=== PATIENT | male | born 1950 | race Caucasian/White ===

== ENCOUNTER 2016-12-26 11:26 | Inpatient (IN) | payer OTHER ==
--- NOTE | 2016-12-26 11:32 | PDOC ---
History of Present Illness - General Stated Complaint: hyperglycemia Time Seen by Provider: 12/26/16 11:31 History Source: Patient Exam Limitations: No Limitations - History of Present Illness Initial Comments: 12/26/16 11:30 CHIEF COMPLAINT: Hyperglycemia PCP: Dr. Isbell HISTORY OF PRESENT ILLNESS: 66 year old male was brought in to the ED by EMS after patients called in because he was acting weird and blood sugar was undectable (very high). A/c to the EMS, gave 40U of Insulin and blood sugar was 453. EMS did a repeat blood sugar which was 414, BP 142/71mmHg, P-80bpm, RR-22; Spo2-94%. As per the patient, he fell 2 days ago while climbing up stairs as he lost his balance, fell backwards hitting his head. At that time, there was no LOC, dizziness, headache, blurring of vision. He said " I didn't go to the doctor because I am stubborn". Since yesterday he mentions of chest pressure, diffuse, non radiating, non reproducible, aggravated on movement, relieved at rest. Denies sob, cough, palpitations. Patient also reports to have developed blister that broke and was scheduled to see a wound doctor. Denies abdominal pain, nausea or vomiting. Has increased urination but denies incontinence, urgency, hesitancy. Bowel habit normal. Sleep: increased. mentions patient has been acting weird since a week, more drowy and think that is the reason for his fall. She said she called Dr. Isbell and was recommended to visit the ED but the patient didn't come to the ED. Recent Travel: None PAST MEDICAL HISTORY: DM, CKD, CVA 10/2014 without residual deficits, CAD with 5 stents s/p STEMI - mLAD PCI 2011, ischemic CM with systolic chf,COPD, extensive smoking history (3 packs per day currently, previously 5 packs per day , total of 50 yrs) PAST SURGICAL HISTORY: As mentioned above Social History: Smokinpacks/day currently Alcohol: sober since 40 years. Drugs: Denies Family History: Unknown Allergies: Pantoprazole. 12/26/16 16:55 Past History - Past Medical History Allergies/Adverse Reactions: Allergies Allergy/AdvReac Type Severity Reaction Status Date / Time pantoprazole sodium Allergy Verified 08/14/16 09:49 [From Protonix] Home Medications: Ambulatory Orders Atorvastatin Ca [Lipitor] 40 mg PO HS #0 tablet 02/19/14 Clopidogrel Bisulfate [Plavix -] 75 mg PO DAILY #20 tablet 02/19/14 Aspirin [Ecotrin] 81 mg PO DAILY 04/29/15 Temazepam [Restoril -] 60 mg PO HS 08/24/15 Docusate Sodium [Colace -] 100 mg PO BID capsule 08/26/15 Insulin Aspart [Novolog] 0 unit SQ PRN PRN 01/10/16 Metoprolol Succinate [Toprol XL -] 50 mg PO DAILY 01/10/16 Aclidinium [place] [Tudorza -] 1 inh PO BID 08/13/16 Budesonide/Formeterol Fumarate [SYMBICORT 160/4.5mcg -] 2 inh PO BID 08/13/16 Morphine *Sr* [MS Contin -] 60 mg PO TID 08/13/16 Albuterol 0.083% Nebulizer Clarisse [Ventolin 0.083% Nebulizer Soln -] 1 amp NEB QIDR amp 08/14/16 Hydralazine HCl [Apresoline -] 10 mg PO BID #180 tablet 08/14/16 Insulin (Levemir) [Levemir Vial] 50 unit SQ AM #0 08/14/16 Insulin (Levemir) [Levemir Vial] 50 units SQ HS ml 08/14/16 Morphine *Sr* [MS Contin -] 60 mg PO TID #90 tablet.sa MDD 3 08/14/16 Oxycodone HCl [Roxicodone -] 30 mg PO Q4H PRN #0 tablet MDD 6 08/14/16 Polyethylene Glycol 3350 [Miralax 119 gm Btl -] 17 gm PO BID PRN #0 bottle 08/14 Torsemide [Demadex -] 40 mg PO DAILY #180 tablet 08/14/16 Anemia: No Asthma: No Cancer: No Cardiac Disorders: Yes (5tents, CT, CAD) CVA: Yes (CVA IN 2014 W/O DEFICIT) COPD: Yes CHF: No Dementia: No Diabetes: Yes GI Disorders: Yes (colitis NOW CONSTIPATION) Disorders: Yes (ON FLOMAX; EDEMA) HTN: Yes Hypercholesterolemia: Yes Kidney Stones: Yes Liver Disease: No Suicide Attempt (Hx): No Seizures: No Thyroid Disease: No - Surgical History Abdominal Surgery: No Appendectomy: No Cardiac Surgery: Yes (stents x 5) Cholecystectomy: No Lung Surgery: No Neurologic Surgery: No Orthopedic Surgery: No - Immunization History Immunization Up to Date: No - Psycho/Social/Smoking Cessation Hx Anxiety: No Suicidal Ideation: No Smoking Status: No Smoking History: Current every day smoker Have you smoked in the past 12 months: Yes Number of Cigarettes Smoked Daily: 30 If you are a former smoker, when did you quit?: DOWN FROM 5 PACKS DAILY TO 2.5 PACKS DAILY Cigars Per Day: 0 'Breaking Loose' booklet given: 08/13/16 Hx Alcohol Use: No Drug/Substance Use Hx: No Substance Use Type: None Hx Substance Use Treatment: No Review of Systems - Review of Systems Able to Perform ROS?: Yes Comments:: 12/26/16 14:25 CONSTITUTIONAL: Absent: fever, chills, diaphoresis, generalized weakness, malaise, loss of appetite HEENT: Absent: rhinorrhea, nasal congestion, throat pain, throat swelling, difficulty swallowing, mouth swelling, ear pain, eye pain, visual Changes CARDIOVASCULAR: Present: chest pain Absent: syncope, palpitations, irregular heart rate, lightheadedness, peripheral edema RESPIRATORY: Absent: cough, shortness of breath, dyspnea with exertion, orthopnea, wheezing, stridor, hemoptysis GASTROINTESTINAL: Absent: abdominal pain, abdominal distension, nausea, vomiting, diarrhea, constipation, melena, hematochezia GENITOURINARY: Absent: dysuria, frequency, urgency, hesitancy, hematuria, flank pain, genital pain MUSCULOSKELETAL: Absent: myalgia, arthralgia, joint swelling SKIN: Absent: rash, itching, pallor HEMATOLOGIC/IMMUNOLOGIC: Absent: easy bleeding, easy bruising, lymphadenopathy, frequent infections ENDOCRINE: Present: Hyperglycemia Absent: unexplained weight gain, unexplained weight loss, heat intolerance, cold intolerance NEUROLOGIC: Absent: headache, focal weakness or paresthesias, dizziness, unsteady gait, seizure, mental status changes, bladder or bowel incontinence PSYCHIATRIC: Absent: anxiety, depression, suicidal or homicidal ideation, hallucinations. Is the patient limited Vietnamese proficient: No *Physical Exam - Physical Exam Comments: 12/26/16 14:27 PE: GENERAL: Awake, drowsy on/off and fully oriented, in no acute distress HEAD: Signs of trauma; Dried blood in the occipito-parietal area with hematoma, no active bleeding or laceration. EYES: PERRLA, EOMI, sclera anicteric, conjunctiva clear ENT: Auricles normal inspection, hearing grossly normal, nares patent, oropharynx clear without exudates. Moist mucosa NECK: Normal ROM, supple, no lymphadenopathy, JVD, or masses LUNGS: Tachypneic, Breath sounds equal, clear to auscultation bilaterally. No wheezes, and no crackles. HEART: Regular rate and rhythm, normal S1 and S2, no murmurs, rubs or gallops ABDOMEN: Soft, nontender, normoactive bowel sounds. No guarding, no rebound. No masses EXTREMITIES: Normal range of motion, no edema. No clubbing or cyanosis. No cords, erythema, or tenderness Lower extremities: Right and left foot broken blisters +, no active bleeding. NEUROLOGICAL: Drowsy, Cranial nerves II through XII grossly intact. Normal speech, Gait not observed SKIN: Warm, Dry, normal turgor, no rashes or lesions noted. ED Treatment Course - LABORATORY CBC & Chemistry Diagram: 12/26/16 12:25 12/26/16 12:25 Medical Decision Making - Medical Decision Making 12/26/16 11:30 Patient seen and examined at bed side. Vitals noted, BP:200/110 mmHg, rest are normal. Patient looks drowsy, arousable, cooperative. at bed side and says its not his baseline and hasn't been so since a week. All labs ordered including CXR, EKG, cardiac profile, UA CT head Will treat hypertensive urgency with IV Labetolol 10mg stat 12/26/16 12:30 Patient reassessed. BP now 130/71mmHg. Labs noted, leukocytosis, uremia, hyperglycemia, Acute on Chronic CKD. Most likely needs Inpatient admission for Uremic encephalopathy 12/26/16 15:29 Clinical Impression: Uremic encephalopathy with hyperglycemia with Acute on Chronic CKD Patient received 10mg of Labetolol in the ED CT head negative for acute pathology Gentle hydration Admit patient in Med-Surg Spoke with Dr. Huang, agrees to the inpatient admission plan. Illness, Investigation and plan of care explained to the patient. He verbalized understanding. Case seen and discussed with Dr. Proctor. *DC/Admit/Observation/Transfer Diagnosis at time of Disposition: Uremic encephalopathy - Discharge Dispostion Admit: Yes
[2016-12-26] MEDS ORDERED: SODIUM CHLORIDE 1,000 ML IV ONE (11:56)
--- NOTE | 2016-12-26 12:26 | EKG ---
Test Reason : Blood Pressure : / mmHG Vent. Rate : 077 BPM Atrial Rate : 077 BPM P-R Int : 224 ms QRS Dur : 114 ms QT Int : 430 ms P-R-T Axes : 029 -50 077 degrees QTc Int : 486 ms BASELINE ARTIFACT SINUS RHYTHM WITH SINUS ARRHYTHMIA WITH 1ST DEGREE A-V BLOCK WITH OCCASIONAL PREMATURE VENTRICULAR COMPLEXES LEFT AXIS DEVIATION MODERATE VOLTAGE CRITERIA FOR LVH, MAY BE NORMAL VARIANT INFERIOR INFARCT (CITED ON OR BEFORE 16-SEP-2001) ANTEROLATERAL INFARCT (CITED ON OR BEFORE 10-MAR-2013) ABNORMAL ECG WHEN COMPARED WITH ECG OF 12-AUG-2016 20:31, NO SIGNIFICANT CHANGE WAS FOUND Confirmed by HAI GALDAMEZ MD ([id number]) on 12/26/2016 12:25:51 PM Referred By: Confirmed By:HAI GALDAMEZ MD
[2016-12-26 12:27] LABS: VENOUS BLOOD GAS HCO3 29.8 meq/L (19-25); VENOUS PH 7.38 (7.32-7.42)
[2016-12-26 12:36] LABS: MEAN PLT VOLUME 9.6 fl (7.5-11.1); PLATELET COUNT 208 K/MM3 (134-434); RDW 14.2 % (11.9-15.9); WHITE BLOOD COUNT 20.2 K/mm3 (4.0-10.0)
[2016-12-26 12:41] LABS: URINE APPEARANCE CLEAR; URINE BILIRUBIN NEGATIVE (NEGATIVE); URINE BLOOD NEGATIVE (NEGATIVE); URINE COLOR LTYELLOW; URINE GLUCOSE (UA) 1+ (NEGATIVE); URINE KETONE NEGATIVE (NEGATIVE); URINE LEUK ESTERASE NEGATIVE (NEGATIVE); URINE NITRITE NEGATIVE (NEGATIVE); URINE PROTEIN NEGATIVE (NEGATIVE); URINE UROBILINOGEN NEGATIVE E.U./dl (0.2-1.0)
[2016-12-26] MEDS ORDERED: LABETALOL HCL 5 MG/1 ML (100MG/20 ML VIAL) IVPUSH ONE ×2 (12:53→13:27)
[2016-12-26 12:59] LABS: ALBUMIN 3.6 g/dl (3.4-5.0); BILIRUBIN,TOTAL 0.7 mg/dL (0.2-1.0); CALCIUM 8.5 mg/dL (8.5-10.1); CREATININE 2.6 mg/dL (0.7-1.3); TOT PROT 6.8 g/dl (6.4-8.2)
--- NOTE | 2016-12-26 12:59 | PDOC ---
Attending Attestation - Resident Resident Name: Marika,Jenny - ED Attending Attestation I have performed the following: I have examined & evaluated the patient, The case was reviewed & discussed with the resident, I agree w/resident's findings & plan, Exceptions are as noted - HPI HPI: 12/26/16 12:56 66-year-old male with multiple medical problems including CAD on aspirin and Plavix, insulin dependent diabetes, known medication noncompliance who presents brought in by for elevated glucose levels in the setting of progressive generalized weakness and malaise over the last few days, and fall with head injury 2 days ago. - Physicial Exam PE: 12/26/16 12:57 Vital signs noted. Asleep but easily arousable, answering questions appropriately. Scalp hematoma Course breath sounds Trace pedal edema with rubor surrounding chronic superficial wounds Nonfocal neurological exam - Medical Decision Making 12/26/16 12:57 Patient seen and evaluated with the resident. I agree with the overall evaluation, assessment, and management with the following summary of visit: 66-year-old male with history of CAD/CHF, insulin-dependent diabetes presents with generalized weakness, confusion, the setting of hyperglycemia and a recent fall with head injury. Full workup with labs, urinalysis, EKG, chest x-ray CT head IV fluids Very hypertensive, we'll treat with labetalol in the setting of medication noncompliance Likely admission 12/26/16 13:48 wbc 20, ? uremic encephalopathy with BUN 128. labile BPs, mental status unchanged but CT negative for injury Heart Score/ECG Review #1 ECG reviewed & interpreted by me at: 11:53 General ECG Interpretation: Sinus Rhythm (single PVC noted), Normal Rate (77), Normal Intervals (qtc 486), No acute ischemic changes
[2016-12-26 13:01] LABS: TROPONIN I 0.02 ng/ml (0.00-0.05)
[2016-12-26 13:21] LABS: ACETONE SERUM NEGATIVE (NEGATIVE)
[2016-12-26 13:23] LABS: MAGNESIUM 1.1 mg/dL (1.8-2.4)
[2016-12-26 13:26] LABS: PLATELET ESTIMATE ADEQUATE (NORMAL)
[2016-12-26 13:38] LABS: TROPONIN I 0.02 ng/ml (0.00-0.05)
[2016-12-26] MEDS: SODIUM CHLORIDE 1,000 ML IV SCH (14:26)
[2016-12-26 15:39] LABS: MAGNESIUM 1.2 mg/dL (1.8-2.4)
[2016-12-26] MEDS ORDERED: ONDANSETRON 4 MG/2 ML VIAL IVPB PRN (15:59)
[2016-12-26] MEDS ORDERED: PIPERACILLIN/TAZOB 3.375 GM 50 ML IVPB ONE ×2 (16:12→17:02)
[2016-12-26] MEDS ORDERED: POLYETHYLENE GLYCOL 3350 119 GM BTL PO PRN (16:29)
--- NOTE | 2016-12-26 16:32 | HP ---
Admitting History and Physical - Primary Care Physician PCP: Vin Isbell - Admission Chief Complaint: I fell History of Present Illness: Mr Scott is a 66 year old male who comes in after a fall two days prior. He states he was walking and he slipped and fell back. He hit his head and back. He is having pain in both areas. He is not having numbness, tingling, weakness, paralysis, visual changes, or hearing changes/tinnitus. He decided not to come in because "I'm stubborn". He cannot tell me why he came in, but says he is hurting. His is not at the bedside currently but per ER physician she noticed that last week he began to get lethargic. She attempted to convince him to come to the doctor but he refused. She again tried to get him to come after the fall but again he refused. Today she checked his glucose and it did not register, she gave him 40 of insulin and it came down to below 400. Because of this and his lethargy he came in. He denies fevers, chills, lightheadedness, passing out, chest pressure, shortness of breath, nausea, vomiting, difficulty or pain on urination, diarrhea, constipation, or swelling. I noted wounds on both his feet and he says they have been there about 2-3 weeks and he is going to see a testing specialist for them. History Source: Patient, Medical Record Limitations to Obtaining History: Clinical Condition - Past Medical History [employer]: Yes: CVA, Peripheral Neuropathy Cardiovascular: Yes: CHF, HTN, Hyperlipdemia. No: AFIB Pulmonary: Yes: COPD Gastrointestinal: Yes: Other (Colitis) Renal/: Yes: Renal Inusuff, Other (hyperkalemia) Psych: Yes: Addictions Musculoskeletal: Yes: Other (Lumbar radiculopathy) Endocrine: Yes: Diabetes Mellitus - Past Surgical History Past Surgical History: Yes: Stent - Smoking History Smoking history: Current every day smoker Have you smoked in the past 12 months: Yes Aproximately how many cigarettes per day: 30 If you are a former smoker, when did you quit?: DOWN FROM 5 PACKS DAILY TO 2.5 PACKS DAILY - Alcohol/Substance Use Hx Alcohol Use: No History of Substance Use: reports: None - Social History Usual Living Arrangement: Yes: With Spouse ADL: Independent History of Recent Travel: No Home Medications - Allergies Allergies/Adverse Reactions: Allergies Allergy/AdvReac Type Severity Reaction Status Date / Time pantoprazole sodium Allergy Verified 08/14/16 09:49 [From Protonix] - Home Medications Home Medications: Ambulatory Orders Atorvastatin Ca [Lipitor] 40 mg PO HS #0 tablet 02/19/14 Clopidogrel Bisulfate [Plavix -] 75 mg PO DAILY #20 tablet 02/19/14 Aspirin [Ecotrin] 81 mg PO DAILY 04/29/15 Temazepam [Restoril -] 60 mg PO HS 08/24/15 Docusate Sodium [Colace -] 100 mg PO BID capsule 08/26/15 Insulin Aspart [Novolog] 0 unit SQ PRN PRN 01/10/16 Metoprolol Succinate [Toprol XL -] 50 mg PO DAILY 01/10/16 Aclidinium [place] [Tudorza -] 1 inh PO BID 08/13/16 Budesonide/Formeterol Fumarate [SYMBICORT 160/4.5mcg -] 2 inh PO BID 08/13/16 Morphine *Sr* [MS Contin -] 60 mg PO TID 08/13/16 Albuterol 0.083% Nebulizer Clarisse [Ventolin 0.083% Nebulizer Soln -] 1 amp NEB QIDR amp 08/14/16 Hydralazine HCl [Apresoline -] 10 mg PO BID #180 tablet 08/14/16 Insulin (Levemir) [Levemir Vial] 50 unit SQ AM #0 08/14/16 Insulin (Levemir) [Levemir Vial] 50 units SQ HS ml 08/14/16 Morphine *Sr* [MS Contin -] 60 mg PO TID #90 tablet.sa MDD 3 08/14/16 Oxycodone HCl [Roxicodone -] 30 mg PO Q4H PRN #0 tablet MDD 6 08/14/16 Polyethylene Glycol 3350 [Miralax 119 gm Btl -] 17 gm PO BID PRN #0 bottle 08/14 Torsemide [Demadex -] 40 mg PO DAILY #180 tablet 08/14/16 Family Disease History - Family Disease History Family Disease History: Diabetes: Grandparent, Sister (COPD), [place]: Father, Respiratory: Sister, Other: Mother (CVA) Review of Systems Findings/Remarks: Full review of systems obtained, as per HPI and otherwise negative. Physical Examination Vital Signs: Vital Signs Temperature 97.8 F 12/26/16 11:40 Pulse Rate 76 12/26/16 15:34 Respiratory Rate 20 12/26/16 15:34 Blood Pressure 121/74 12/26/16 15:34 O2 Sat by Pulse Oximetry (%) 97 12/26/16 15:34 Constitutional: Yes: No Distress, Other (lethargic) Eyes: Yes: Conjunctiva Clear, EOM Intact HENT: Yes: Atraumatic, Normocephalic Cardiovascular: Yes: Regular Rate and Rhythm. No: Gallop, Murmur, Rub Respiratory: Yes: Regular, CTA Bilaterally. No: Rales, Rhonchi, Wheezes Gastrointestinal: Yes: Normal Bowel Sounds, Soft. No: Distention, Tenderness Extremities: Yes: Erythema, Other (wound) Edema: Yes Edema: LLE: Trace, RLE: Trace Labs: Laboratory Results - last 24 hr 12/26/16 12/26/16 12/26/16 11:56 12:00 12:25 WBC 20.2 H D RBC 5.24 Hgb 15.2 Hct 46.1 MCV 88.0 MCHC 33.0 RDW 14.2 Plt Count 208 MPV 9.6 Neutrophils % 86.0 H Lymphocytes % 9.0 D Monocytes % 5.0 D Eosinophils % 0.0 D Basophils % 0.0 Band Neutrophils 0.0 D Differential Comment Manual diff done Platelet Estimate Adequate VBG pH 7.38 POC VBG pCO2 51.2 POC VBG pO2 27.7 L Mixed VBG HCO3 29.8 H Sodium Potassium Chloride Carbon Dioxide Anion Gap BUN Creatinine Creat Clearance w eGFR POC Glucometer Random Glucose Calcium Magnesium Total Bilirubin AST ALT Alkaline Phosphatase Creatine Kinase Troponin I Total Protein Albumin Urine Color Ltyellow Urine Appearance Clear Urine pH 5.0 Ur Specific [employer] 1.011 Urine Protein Negative Urine Glucose (UA) 1+ H Urine Ketones Negative Urine Blood Negative Urine Nitrite Negative Urine Bilirubin Negative Urine Urobilinogen Negative Ur Leukocyte Esterase Negative Acetone, Qual 12/26/16 12/26/16 12/26/16 12:25 12:25 12:52 WBC RBC Hgb Hct MCV MCHC RDW Plt Count MPV Neutrophils % Lymphocytes % Monocytes % Eosinophils % Basophils % Band Neutrophils Differential Comment Platelet Estimate VBG pH POC VBG pCO2 POC VBG pO2 Mixed VBG HCO3 Sodium 135 L Potassium 3.0 L Chloride 92 L D Carbon Dioxide 32 Anion Gap 11 BUN 128 H* D Creatinine 2.6 H D Creat Clearance w eGFR 24.67 POC Glucometer > 400 Random Glucose 370 H* D Calcium 8.5 Magnesium 1.1 L D 1.2 L Total Bilirubin 0.7 AST 14 L ALT 18 Alkaline Phosphatase 155 H D Creatine Kinase 62 77 Troponin I 0.02 D 0.02 Total Protein 6.8 Albumin 3.6 Urine Color Urine Appearance Urine pH Ur Specific [employer] Urine Protein Urine Glucose (UA) Urine Ketones Urine Blood Urine Nitrite Urine Bilirubin Urine Urobilinogen Ur Leukocyte Esterase Acetone, Qual Negative Imaging - Results Chest X-ray: Report Reviewed, Image Reviewed Cat Scan: Report Reviewed Problem List - Problems (1) Uremic encephalopathy Assessment/Plan: -patient with lethargy and found to have severely elevated BUN -occurred in the past secondary to overdiuresis -admit to the hospital -hold diuretics -hydrate with IVF -obtain renal ultrasound -nephrology consult Code(s): G93.41 - METABOLIC ENCEPHALOPATHY N19 - UNSPECIFIED KIDNEY FAILURE (2) Renal failure (ARF), acute on chronic Assessment/Plan: -with elevated BUN/Cr -as above -nephrology consult Code(s): N17.9 - ACUTE KIDNEY FAILURE, UNSPECIFIED N18.9 - CHRONIC KIDNEY DISEASE, UNSPECIFIED (3) Cellulitis Assessment/Plan: -with wounds on BLE -erythema not severe, but with leukocytosis -considering poorly controlled diabetes, concerning -will give dose of zosyn -considering renal function will hold on vancomycin until evaluated by ID -ID consult Code(s): L03.90 - CELLULITIS, UNSPECIFIED Qualifiers: Site of cellulitis: extremity Site of cellulitis of extremity: lower extremity Laterality: left Qualified Code(s): L03.116 - Cellulitis of left lower limb (4) Diabetes mellitus Assessment/Plan: -with severely hyperglycemia -consult endocrinology -continue levemir 50 units bid which is home dose -SSI and diabetic diet -not in ketoacidosis Code(s): E11.9 - TYPE 2 DIABETES MELLITUS WITHOUT COMPLICATIONS Qualifiers: Diabetes mellitus type: type 1 Diabetes mellitus complication status: with hyperglycemia Qualified Code(s): E10.65 - Type 1 diabetes mellitus with hyperglycemia (5) Hypomagnesemia Assessment/Plan: -replaced in the ED -recheck and replace as needed Code(s): E83.42 - HYPOMAGNESEMIA (6) Hypertension Assessment/Plan: -elevated upon presentation -given IV labetalol in the ED -much improved -continue home regimen -nephrology consulted Code(s): I10 - ESSENTIAL (PRIMARY) HYPERTENSION (7) Hypokalemia Assessment/Plan: -replace Code(s): E87.6 - HYPOKALEMIA (8) CAD (coronary artery disease) Assessment/Plan: -without chest pain -cardiac enzymes negative -continue home regimen Code(s): I25.10 - ATHSCL HEART DISEASE OF [place] CORONARY ARTERY W/O ANG PCTRS Qualifiers: Coronary Disease-Associated Artery/Lesion type: unspecified vessel or lesion type [place] vs. transplanted heart: [place] heart Associated angina: with stable angina Qualified Code(s): I25.119 - Atherosclerotic heart disease of [place] coronary artery with unspecified angina pectoris (9) COPD (chronic obstructive pulmonary disease) Assessment/Plan: -stable -continue home regimen Code(s): J44.9 - CHRONIC OBSTRUCTIVE PULMONARY DISEASE, UNSPECIFIED Qualifiers : COPD type: unspecified COPD Qualified Code(s): J44.9 - Chronic obstructive pulmonary disease, unspecified (10) Chronic pain Assessment/Plan: -will continue MS Contin -will speak with Dr Isbell and obtain home regimen Code(s): G89.29 - OTHER CHRONIC PAIN (11) Congestive heart failure (CHF) Assessment/Plan: -not in exacerbation -hold diuretics currently -hydration -close monitoring for fluid overload Code(s): I50.9 - HEART FAILURE, UNSPECIFIED Qualifiers: Congestive heart failure chronicity: chronic (12) Tobacco abuse Assessment/Plan: -nicotine patch Code(s): Z72.0 - TOBACCO USE (13) Fall Assessment/Plan: -mechanical fall, not syncope -PT consult -no ICH -obtain spine x-ray to rule out fracture Code(s): W19.XXXA - UNSPECIFIED FALL, INITIAL ENCOUNTER Qualifiers: Encounter type: initial encounter Qualified Code(s): W19.XXXA - Unspecified fall, initial encounter
[2016-12-26] MEDS ORDERED: INSULIN REGULAR HUMAN 100 UNITS/ML *VIAL ONE (17:14)
[2016-12-26] MEDS: INSULIN SLIDING SCALE (NOVOLOG) 1 VIAL SQ SCH ×2 (17:15→22:19)
[2016-12-26] MEDS: ALBUTEROL SO4 0.083% IH SOL 2.5 MG/3 ML VIAL.NEB. NEB SCH (18:02)
[2016-12-26 20:56] VITALS: BMI 25.9
[2016-12-26] MEDS: DOCUSATE SODIUM 100 MG CAPSULE (FP) PO SCH (22:17)
[2016-12-26] MEDS: ATORVASTATIN CA 40 MG TABLET (FP) PO SCH (22:18)
[2016-12-26] MEDS: HEPARIN NA (PORCINE) 5,000 UNITS/ML 1ML VIAL SQ SCH (22:18)
[2016-12-26] MEDS: INSULIN DETEMIR 100 UNITS/ML MDV SQ SCH (22:18)
[2016-12-26] MEDS: ACLIDINIUM BROMIDE 400 MCG/INH AERO.POWD IH SCH (22:22)
[2016-12-26] MEDS: BUDESONIDE/FORMETEROL FUMARATE 160/4.5 mcg INHALER IH SCH (22:22)
[2016-12-26] MEDS ORDERED: INSULIN (NOVOLOG) ASPART 100 UNITS/ML 10ML VIAL ONE (22:27)
[2016-12-26] MEDS: hydrALAZINE HCL 10 MG TABLET PO SCH (22:52)
[2016-12-26] MEDS: morphine SO4 SUSTAINED ACTING 30 MG TABLET.SA PO SCH (22:56)
[2016-12-27] MEDS: ACETAMINOPHEN 325 MG TABLET (FP) PO PRN ×2 (03:06→20:50)
[2016-12-27] MEDS: SODIUM CHLORIDE 1,000 ML IV SCH (04:25)
[2016-12-27] MEDS: morphine SO4 SUSTAINED ACTING 30 MG TABLET.SA PO SCH ×3 (05:59→22:09)
[2016-12-27] MEDS: HEPARIN NA (PORCINE) 5,000 UNITS/ML 1ML VIAL SQ SCH ×3 (05:59→22:25)
[2016-12-27] MEDS: ALBUTEROL SO4 0.083% IH SOL 2.5 MG/3 ML VIAL.NEB. NEB SCH ×3 (06:30→17:18)
[2016-12-27] MEDS: INSULIN DETEMIR 100 UNITS/ML MDV SQ SCH ×2 (06:49→22:24)
[2016-12-27] MEDS: INSULIN SLIDING SCALE (NOVOLOG) 1 VIAL SQ SCH ×4 (06:50→22:23)
[2016-12-27 07:56] LABS: BASOPHIL 0.6 % (0-2.0); MCH 28.8 pg (25.7-33.7); MCHC 33.2 g/dl (32.0-35.9); MEAN CELL VOLUME 86.9 fl (80-96); MEAN PLT VOLUME 9.8 fl (7.5-11.1); NEUTROPHILS 80.6 % (42.8-82.8); PLATELET COUNT 202 K/MM3 (134-434); RDW 14.3 % (11.9-15.9); WHITE BLOOD COUNT 17.4 K/mm3 (4.0-10.0)
[2016-12-27] MEDS ORDERED: PT OWN MED DRAWER 7, Y5N ONE ×3 (09:06→22:16)
[2016-12-27] MEDS: DOCUSATE SODIUM 100 MG CAPSULE (FP) PO SCH ×2 (09:10→22:10)
[2016-12-27] MEDS: ASPIRIN COATED 81 MG TABLET.EC PO SCH (09:10)
[2016-12-27] MEDS: hydrALAZINE HCL 10 MG TABLET PO SCH ×2 (09:10→22:36)
[2016-12-27] MEDS: METOPROLOL SUCCINATE 50 MG TAB.SR.24H (FP) PO SCH (09:11)
[2016-12-27] MEDS: BUDESONIDE/FORMETEROL FUMARATE 160/4.5 mcg INHALER IH SCH ×2 (09:11→22:36)
[2016-12-27] MEDS: CLOPIDOGREL BISULFATE 75 MG TABLET (FP) PO SCH (09:11)
[2016-12-27] MEDS: ACLIDINIUM BROMIDE 400 MCG/INH AERO.POWD IH SCH ×2 (09:12→22:36)
[2016-12-27] MEDS: NICOTINE 21 MG/24 HOURS TOPICAL PATCH TD SCH (09:12)
[2016-12-27 09:16] LABS: ALBUMIN 3.3 g/dl (3.4-5.0); BILIRUBIN,TOTAL 0.6 mg/dL (0.2-1.0); CALCIUM 8.2 mg/dL (8.5-10.1); CREATININE 1.8 mg/dL (0.7-1.3); MAGNESIUM 1.3 mg/dL (1.8-2.4); PHOSPHOROUS 3.1 mg/dL (2.5-4.9); TOT PROT 5.9 g/dl (6.4-8.2)
[2016-12-27] MEDS: oxyCODONE HCL 5 MG TABLET PO PRN ×2 (09:25→17:30)
[2016-12-27] MEDS: PREGABALIN 25 MG CAPSULE PO SCH ×2 (09:26→22:10)
[2016-12-27 09:35] LABS: URINE APPEARANCE CLEAR; URINE BILIRUBIN NEGATIVE (NEGATIVE); URINE BLOOD NEGATIVE (NEGATIVE); URINE COLOR STRAW; URINE GLUCOSE (UA) NEGATIVE (NEGATIVE); URINE KETONE NEGATIVE (NEGATIVE); URINE LEUK ESTERASE NEGATIVE (NEGATIVE); URINE NITRITE NEGATIVE (NEGATIVE); URINE PROTEIN NEGATIVE (NEGATIVE); URINE UROBILINOGEN NEGATIVE E.U./dl (0.2-1.0)
--- NOTE | 2016-12-27 09:47 | CONSULT ---
Consult Consult Specialty:: Infectious Disease Referred by:: Dr. Huang Reason for Consultation:: Diabetic Foot Ulcer/Cellulitis - History of Present Illness Chief Complaint: Fall History of Present Illness: 66M with a PMH of CHF HTN HLD DM COPD renal insufficiency Smoker who presents to the ED after having a fall 3 days ago. He states he slipped and fell and hit his head a upper back. He states he slipped and fell and denies loss of consciousness. He came to the ED due to pain. He had Head CT and spinal XR which did not show any acute pathology. Upon laboratory assessment he was found to have a WBC count of 20. The patient also reports having a left foot ulcer which started off as a "water blister" 2 months ago which eventually popped and never healed. On the right great toe he also reports a water bloster which popped yesterday. He denies nausea vomiting fevers chills diarrhea constipation cough chest pain shortness of breath hematuria or dysuria. He denies lightheadedness or dizziness. he denies discharge from the ulcers as well. He has 3 dogs at home and denies being bit or scratched. He denies recent travel. He does not follow up with wound care, podiatry, or vascular surgery. - History Source History Provided By: Patient, Medical Record Limitations to Obtaining History: No Limitations - Past Medical History [employer]: Yes: CVA, Peripheral Neuropathy Cardio/Vascular: Yes: CHF, HTN, Hyperlipdemia. No: AFIB Pulmonary: Yes: COPD Gastrointestinal: Yes: Other (Colitis) Renal/: Yes: Renal Inusuff, Other (hyperkalemia) Psych: Yes: Addictions Musculoskeletal: Yes: Other (Lumbar radiculopathy) Endocrine: Yes: Diabetes Mellitus - Past Surgical History Past Surgical History: Yes: Stent - Alcohol/Substance Use Hx Alcohol Use: No History of Substance Use: reports: None - Smoking History Smoking history: Current every day smoker Have you smoked in the past 12 months: Yes Aproximately how many cigarettes per day: 30 If you are a former smoker, when did you quit?: DOWN FROM 5 PACKS DAILY TO 2.5 PACKS DAILY - Social History Usual Living Arrangement: With Spouse ADL: Independent History of Recent Travel: No Home Medications - Allergies Allergies/Adverse Reactions: Allergies Allergy/AdvReac Type Severity Reaction Status Date / Time pantoprazole sodium Allergy Verified 08/14/16 09:49 [From Protonix] - Home Medications Home Medications: Ambulatory Orders Atorvastatin Ca [Lipitor] 40 mg PO HS #0 tablet 02/19/14 Clopidogrel Bisulfate [Plavix -] 75 mg PO DAILY #20 tablet 02/19/14 Aspirin [Ecotrin] 81 mg PO DAILY 04/29/15 Temazepam [Restoril -] 60 mg PO HS 08/24/15 Docusate Sodium [Colace -] 100 mg PO BID capsule 08/26/15 Insulin Aspart [Novolog] 0 unit SQ PRN PRN 01/10/16 Metoprolol Succinate [Toprol XL -] 50 mg PO DAILY 01/10/16 Aclidinium [place] [Tudorza -] 1 inh PO BID 08/13/16 Budesonide/Formeterol Fumarate [SYMBICORT 160/4.5mcg -] 2 inh PO BID 08/13/16 Morphine *Sr* [MS Contin -] 60 mg PO TID 08/13/16 Albuterol 0.083% Nebulizer Clarisse [Ventolin 0.083% Nebulizer Soln -] 1 amp NEB QIDR amp 08/14/16 Hydralazine HCl [Apresoline -] 10 mg PO BID #180 tablet 08/14/16 Insulin (Levemir) [Levemir Vial] 50 unit SQ AM #0 08/14/16 Insulin (Levemir) [Levemir Vial] 50 units SQ HS ml 08/14/16 Morphine *Sr* [MS Contin -] 60 mg PO TID #90 tablet.sa MDD 3 08/14/16 Oxycodone HCl [Roxicodone -] 30 mg PO Q4H PRN #0 tablet MDD 6 08/14/16 Polyethylene Glycol 3350 [Miralax 119 gm Btl -] 17 gm PO BID PRN #0 bottle 08/14 Torsemide [Demadex -] 40 mg PO DAILY #180 tablet 08/14/16 Family Disease History - Family Disease History Family Disease History: Diabetes: Grandparent, Sister (COPD), CA: Father, Respiratory: Sister, Other: Mother (CVA) Review of Systems - Review of Systems Constitutional: reports: No Symptoms Eyes: reports: No Symptoms HENT: reports: No Symptoms Neck: reports: No Symptoms Cardiovascular: reports: No Symptoms Respiratory: reports: No Symptoms Gastrointestinal: reports: No Symptoms Genitourinary: reports: No Symptoms Musculoskeletal: reports: Back Pain, Other (head pain) Integumentary: reports: Blister (feet), Wound (feet) Neurological: reports: Other (decreased sensation to bilateral feet) Endocrine: reports: No Symptoms Physical Exam Vital Signs: Vital Signs Temperature 97.6 F 12/26/16 19:00 Pulse Rate 74 12/26/16 21:00 Respiratory Rate 18 12/26/16 21:00 Blood Pressure 134/80 12/26/16 21:00 O2 Sat by Pulse Oximetry (%) 98 12/26/16 21:00 Constitutional: Yes: Obese Eyes: Yes: Conjunctiva Clear HENT: Yes: Atraumatic, Normocephalic Neck: Yes: Supple, Trachea Midline Cardiovascular: Yes: Regular Rate and Rhythm, S1, S2. No: Murmur Respiratory: Yes: CTA Bilaterally Gastrointestinal: Yes: Normal Bowel Sounds, Soft, Abdomen, Obese Extremities: Yes: Other (RLE great toe ulcer dried no discharge LLE foot ulcer which is dry and crusted left second toe ulcer on the dorsal surface with some erythema surrounding the ulcer) Edema: No Peripheral Pulses WNL: No (DP pulses not palpable bilaterally faintly palpable PT pulses ) Neurological: Yes: Alert, Oriented Labs: CBC, BMP 12/27/16 06:45 Imaging - Results Chest X-ray: Report Reviewed, Image Reviewed X-ray: Report Reviewed, Image Reviewed (All spine XR) Cat Scan: Report Reviewed, Image Reviewed (Head CT) Problem List - Problems (1) Fall Code(s): W19.XXXA - UNSPECIFIED FALL, INITIAL ENCOUNTER Qualifiers: Encounter type: initial encounter Qualified Code(s): W19.XXXA - Unspecified fall, initial encounter (2) Hypokalemia Code(s): E87.6 - HYPOKALEMIA (3) Back pain Code(s): M54.9 - DORSALGIA, UNSPECIFIED (4) CAD (coronary artery disease) Code(s): I25.10 - ATHSCL HEART DISEASE OF [place] CORONARY ARTERY W/O ANG PCTRS Qualifiers: Coronary Disease-Associated Artery/Lesion type: unspecified vessel or lesion type [place] vs. transplanted heart: [place] heart Associated angina: with stable angina Qualified Code(s): I25.119 - Atherosclerotic heart disease of [place] coronary artery with unspecified angina pectoris (5) CKD (chronic kidney disease) Code(s): N18.9 - CHRONIC KIDNEY DISEASE, UNSPECIFIED (6) COPD (chronic obstructive pulmonary disease) Code(s): J44.9 - CHRONIC OBSTRUCTIVE PULMONARY DISEASE, UNSPECIFIED Qualifiers : COPD type: unspecified COPD Qualified Code(s): J44.9 - Chronic obstructive pulmonary disease, unspecified (7) Cellulitis Code(s): L03.90 - CELLULITIS, UNSPECIFIED Qualifiers: Site of cellulitis: extremity Site of cellulitis of extremity: lower extremity Laterality: left Qualified Code(s): L03.116 - Cellulitis of left lower limb (8) Chronic pain Code(s): G89.29 - OTHER CHRONIC PAIN (9) Congestive heart failure (CHF) Code(s): I50.9 - HEART FAILURE, UNSPECIFIED Qualifiers: Congestive heart failure chronicity: chronic (10) Hyperlipidemia Code(s): E78.5 - HYPERLIPIDEMIA, UNSPECIFIED (11) Hypertension Code(s): I10 - ESSENTIAL (PRIMARY) HYPERTENSION (12) Leukocytosis Code(s): D72.829 - ELEVATED WHITE BLOOD CELL COUNT, UNSPECIFIED Qualifiers: Leukocytosis type: other Qualified Code(s): D72.828 - Other elevated white blood cell count (13) Renal failure (ARF), acute on chronic Code(s): N17.9 - ACUTE KIDNEY FAILURE, UNSPECIFIED N18.9 - CHRONIC KIDNEY DISEASE, UNSPECIFIED (14) Tobacco abuse Code(s): Z72.0 - TOBACCO USE (15) Diabetic foot ulcer Code(s): E11.621 - TYPE 2 DIABETES MELLITUS WITH FOOT ULCER L97.509 - NON-PRESSURE CHRONIC ULCER OTH PRT UNSP FOOT W UNSP SEVERITY Assessment/Plan 66M with multiple medical problems s/p mechanical fall found to have leukocytosis likely secondary to bilateral diabetic foot ulcers Wound care consult bacitracin to wounds with local wound care consider podiatry consult-will need outpatient follow up with podiatry received 1 dose of zosyn yesterday will start Cefazolin today 1Gm q12h Nephrology consult kidney ultrasound hold diuretics for now as patient is euvolemic may need IVF for hydration trend CBC and BMP pain control O2 PRN DVT PPx Will follow thank you for this consult and allowing us to participate in the care of this patient
--- NOTE | 2016-12-27 09:48 | CONSULT ---
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 No: AFIB Pulmonary: Yes: COPD Gastrointestinal: Yes: Other (Colitis) Renal/: Yes: Renal Inusuff, Other (hyperkalemia) Psych: Yes: Addictions Musculoskeletal: Yes: Other (Lumbar radiculopathy) Endocrine: Yes: Diabetes Mellitus - Past Surgical History Past Surgical History: Yes: Stent - Alcohol/Substance Use Hx Alcohol Use: No History of Substance Use: reports: None - Smoking History Smoking history: Current every day smoker Have you smoked in the past 12 months: Yes Aproximately how many cigarettes per day: 30 If you are a former smoker, when did you quit?: DOWN FROM 5 PACKS DAILY TO 2.5 PACKS DAILY - Social History Usual Living Arrangement: With Spouse ADL: Independent History of Recent Travel: No Home Medications - Allergies Allergies/Adverse Reactions: Allergies Allergy/AdvReac Type Severity Reaction Status Date / Time pantoprazole sodium Allergy Verified 08/14/16 09:49 [From Protonix] - Home Medications Home Medications: Ambulatory Orders Atorvastatin Ca [Lipitor] 40 mg PO HS #0 tablet 02/19/14 Clopidogrel Bisulfate [Plavix -] 75 mg PO DAILY #20 tablet 02/19/14 Aspirin [Ecotrin] 81 mg PO DAILY 04/29/15 Temazepam [Restoril -] 60 mg PO HS 08/24/15 Docusate Sodium [Colace -] 100 mg PO BID capsule 08/26/15 Insulin Aspart [Novolog] 0 unit SQ PRN PRN 01/10/16 Metoprolol Succinate [Toprol XL -] 50 mg PO DAILY 01/10/16 Aclidinium [place] [Tudorza -] 1 inh PO BID 08/13/16 Budesonide/Formeterol Fumarate [SYMBICORT 160/4.5mcg -] 2 inh PO BID 08/13/16 Morphine *Sr* [MS Contin -] 60 mg PO TID 08/13/16 Albuterol 0.083% Nebulizer Clarisse [Ventolin 0.083% Nebulizer Soln -] 1 amp NEB QIDR amp 08/14/16 Hydralazine HCl [Apresoline -] 10 mg PO BID #180 tablet 08/14/16 Insulin (Levemir) [Levemir Vial] 50 unit SQ AM #0 08/14/16 Insulin (Levemir) [Levemir Vial] 50 units SQ HS ml 08/14/16 Morphine *Sr* [MS Contin -] 60 mg PO TID #90 tablet.sa MDD 3 08/14/16 Oxycodone HCl [Roxicodone -] 30 mg PO Q4H PRN #0 tablet MDD 6 08/14/16 Polyethylene Glycol 3350 [Miralax 119 gm Btl -] 17 gm PO BID PRN #0 bottle 08/14 Torsemide [Demadex -] 40 mg PO DAILY #180 tablet 08/14/16 Family Disease History - Family Disease History Family Disease History: Diabetes: Grandparent, Sister (COPD), CA: Father, Respiratory: Sister, Other: Mother (CVA) Physical Exam Vital Signs: Vital Signs Temperature 97.6 F 12/26/16 19:00 Pulse Rate 74 12/26/16 21:00 Respiratory Rate 18 12/26/16 21:00 Blood Pressure 134/80 12/26/16 21:00 O2 Sat by Pulse Oximetry (%) 98 12/26/16 21:00 Labs: CBC, BMP 12/27/16 06:45 Assessment/Plan Vascular Surgery 66-year-old male with multiple medical problems including CAD on aspirin and Plavix, insulin dependent diabetes, known medication noncompliance who presents brought in by for elevated glucose levels in the setting of progressive generalized weakness and malaise over the last few days, and fall with head injury 2 days ago. Has ulcers bilateral lower ext for over a month. Pt is a smoker -- smokes 3ppd, for the last 30 years. PE head - NC/AT Lung - CTA Heart - RRR abd - soft,nt,nd ext - right great toe ulcer Left medial foot ulcer. No palpable DP pulses bilaterally. fAINT PT pulses bilaterally. A/P Long time smoker of 3 PPD, with uncontrolled DM -- now with bilateral lower ext ulcers for over a month. 1. Will need imaging -- most prob angiogram, when Cr gets better. Will be on standby for intervention. 2. Nephrology on case. 3. Bacitracin to all wounds daily. Isiah Carson DO
--- NOTE | 2016-12-27 10:35 | CONSULT ---
Consult - text type - Consultation Consultation Note: Renal Consult for [facility] on CKD This is a 66 year old Gentleman with PMhx of CKD (baseline Cr unclear, IDDM, CVA , CAD s/p PCI and stenting, CHF, COPD, Current smoker who presented from [place] with fall and AMS and found to have BUN/Cr of 128/2.6. Pt with recent admission in July with [facility] secondary to volume depletion in setting of uncontrolled blood glucose and diuretics. Pt is on Toresemide at home. As per Med Rec reported AMS and high sugars at home. + Fall with head trauma. + NSAID use at home. No WENDY or ARB. No flank pain. No hematuria or dark urine. No contrast exposure. NO recent Abx. PMhx: as above Allergies: Protonix Family Hx: NC Social Hx: + smoker ROS: as per HPI, all other pertinent ros negative Home Meds: Home Medications Torsemide 40mg, Hydralazine 10mg BID, Plavix, Novolog, Levamir Vital Signs Temperature 97.8 F 12/27/16 10:09 Pulse Rate 76 12/27/16 10:09 Respiratory Rate 16 12/27/16 10:09 Blood Pressure 142/79 12/27/16 10:09 O2 Sat by Pulse Oximetry (%) 98 12/26/16 21:00 Intake & Output 12/24/16 12/25/16 12/26/16 12/27/16 23:59 23:59 23:59 23:59 Intake Total 300 1213 Output Total 1000 2100 Balance -700 -887 Weight 171 lb Gen: NAD, awake and alert HEENT: NC/AT, MMM, No JVD CVS: RRR, No M/R Lungs: CTA Abd: soft NT/ND Ext: No edema, clubbing or cyanosis. Right foot open blister. No erythema. Neuro: AAOx3, no focal defects : No overt bladder distension CBC, BMP 12/27/16 06:45 12/27/16 06:45 Current Medications Acetaminophen (Tylenol -) 650 mg PO Q4H PRN PRN Reason: FEVER OR PAIN Last Admin: 12/27/16 03:06 Dose: 650 mg Aclidinium [place] (Tudorza -) 1 puff IH BID RADHA Last Admin: 12/27/16 09:12 Dose: 1 puff Albuterol Sulfate (Ventolin 0.083% Nebulizer Soln -) 1 amp NEB QIDR [facility] Last Admin: 12/27/16 06:30 Dose: Not Given Aspirin (Ecotrin -) 81 mg PO DAILY [facility] Last Admin: 12/27/16 09:10 Dose: 81 mg Atorvastatin Calcium (Lipitor -) 40 mg PO HS [facility] Last Admin: 12/26/16 22:18 Dose: 40 mg Bacitracin (Bacitracin -) 1 applic TP DAILY [facility] Budesonide/Formoterol Fumarate (Symbicort 160/4.5mcg -) 2 puff IH BID [facility] Last Admin: 12/27/16 09:11 Dose: 2 puff Clopidogrel Bisulfate (Plavix -) 75 mg PO DAILY [facility] Last Admin: 12/27/16 09:11 Dose: 75 mg Docusate Sodium (Colace -) 100 mg PO BID [facility] Last Admin: 12/27/16 09:10 Dose: 100 mg Heparin Sodium (Porcine) (Heparin -) 5,000 unit SQ TID [facility] Last Admin: 12/27/16 05:59 Dose: 5,000 unit Hydralazine HCl (Apresoline -) 10 mg PO BID [facility] Last Admin: 12/27/16 09:10 Dose: 10 mg Cefazolin Sodium (Ancef 1 Gm Premixed Ivpb -) 50 mls @ 100 mls/hr IVPB Q12H [facility] Potassium Chloride 20 meq/ (Sodium Chloride) 1,010 mls @ 83 mls/hr IVPB ASDIR [facility] Insulin Aspart (Novolog Vial Sliding Scale -) 1 vial SQ ACHS [facility] PRN Reason: Protocol Last Admin: 12/27/16 06:50 Dose: 7 units Insulin Detemir (Levemir Vial) 50 units SQ HS [facility] Last Admin: 12/26/16 22:18 Dose: 50 units Insulin Detemir (Levemir Vial) 50 units SQ AM [facility] Last Admin: 12/27/16 06:49 Dose: 50 units Magnesium Sulfate (Magnesium Sulfate) 2 gm IVPB Q1H [facility] Stop: 12/27/16 11:31 Metoprolol Succinate (Toprol Xl -) 50 mg PO DAILY [facility] Last Admin: 12/27/16 09:11 Dose: 50 mg Morphine Sulfate (Ms Contin -) 60 mg PO TID [facility] Last Admin: 12/27/16 05:59 Dose: 60 mg Nicotine (Nicoderm Patch -) 21 mg TD DAILY [facility] Last Admin: 12/27/16 09:12 Dose: 21 mg Ondansetron HCl (Zofran Injection) 4 mg IVPB Q6H PRN PRN Reason: NAUSEA Oxycodone HCl (Roxicodone -) 30 mg PO Q4H PRN PRN Reason: PAIN Last Admin: 12/27/16 09:25 Dose: 30 mg Polyethylene Glycol (Miralax (For Daily Use) -) 17 gm PO BID PRN PRN Reason: CONSTIPATION Potassium Chloride (K-Dur -) 60 meq PO ONCE ONE Stop: 12/27/16 10:25 Pregabalin (Lyrica -) 25 mg PO BID [facility] Last Admin: 12/27/16 09:26 Dose: 25 mg A/P 66 year old Gentleman with PMhx of CKD (baseline Cr unclear, IDDM, CVA, CAD s/p PCI and stenting, CHF, COPD, Current smoker who presented from [place] with fall and AMS and found to have BUN/Cr of 128/2.6. #Acute Kidney Injury Likely related to volume depletion in setting of hyperglycemia and diuretics Renal function with improvement since admission Check FeNa, FeUrea, UPCR Renal US pending continue isotonic IVF for now with monitoring of resp status Dose all meds for Cr Cl less then 20 avoid NSAIDs, IV contrast for now #Fall X-rays w/o eveidence of fracture CT head negative #Hyperglycemia/IDDM contniue insulin as per primary Endocrine evalulation #Hypokalemia/Hypomagnesemia from diuretics and insulin effect KCL supplementation with Oral KCL Mag Sulfate IV x 4g Trend Electrolytes Q12h #Hx of CHF/CAD Pt hypovolemic at the present time holding diuretics Thank you for this referral Will continue to follow Gerber Rodriguez DO
--- NOTE | 2016-12-27 11:04 | PN ---
Teaching Attending Note Name of Resident: Henrry Rivas ATTENDING PHYSICIAN STATEMENT I saw and evaluated the patient. I reviewed the resident's note and discussed the case with the resident. I agree with the resident's findings and plan as documented. SUBJECTIVE: OBJECTIVE: ASSESSMENT AND PLAN: Leukocytosis, possible sepsis secondary to skin focus Possible early cellulitis L 2nd toe Superficial foot ulcers s/p ruptured bullae Uncontrolled DM Azotemia Pending cultures empiric cefazolin 1gm IVPB q12h
[2016-12-27] MEDS: CEFAZOLIN (PRE-DOCKED) 50 ML IVPB SCH ×2 (11:27→22:11)
[2016-12-27] MEDS: MAGNESIUM SULF 50% (8.12 MEQ/2 ML-1 GM VIAL) IVPB SCH ×2 (11:28→12:49)
[2016-12-27] MEDS: SODIUM CHLORIDE 0.9%/KCL 1,000 ML IV SCH (11:29)
[2016-12-27] MEDS ORDERED: POTASSIUM CHLORIDE TABS 20 MEQ TABLET.ER (FP) PO ONE (13:00)
[2016-12-27 13:50] LABS: URINE CREATININE 49.5 mg/dL
--- NOTE | 2016-12-27 14:09 | PN ---
Progress Note, Physician Chief Complaint: Mr Scott complains of pain, accusatory that he did not receive pain medications. Pain is in his back and head where he fell. No cp, sob, n/v. - Current Medication List Current Medications: Active Medications Acetaminophen (Tylenol -) 650 mg PO Q4H PRN PRN Reason: FEVER OR PAIN Last Admin: 12/27/16 03:06 Dose: 650 mg Aclidinium [place] (Tudorza -) 1 puff IH BID [facility] Last Admin: 12/27/16 09:12 Dose: 1 puff Albuterol Sulfate (Ventolin 0.083% Nebulizer Soln -) 1 amp NEB QIDR [facility] Last Admin: 12/27/16 11:19 Dose: Not Given Aspirin (Ecotrin -) 81 mg PO DAILY [facility] Last Admin: 12/27/16 09:10 Dose: 81 mg Atorvastatin Calcium (Lipitor -) 40 mg PO HS [facility] Last Admin: 12/26/16 22:18 Dose: 40 mg Bacitracin (Bacitracin -) 1 applic TP DAILY [facility] Budesonide/Formoterol Fumarate (Symbicort 160/4.5mcg -) 2 puff IH BID [facility] Last Admin: 12/27/16 09:11 Dose: 2 puff Clopidogrel Bisulfate (Plavix -) 75 mg PO DAILY [facility] Last Admin: 12/27/16 09:11 Dose: 75 mg Docusate Sodium (Colace -) 100 mg PO BID [facility] Last Admin: 12/27/16 09:10 Dose: 100 mg Heparin Sodium (Porcine) (Heparin -) 5,000 unit SQ TID [facility] Last Admin: 12/27/16 13:52 Dose: 5,000 unit Hydralazine HCl (Apresoline -) 10 mg PO BID [facility] Last Admin: 12/27/16 09:10 Dose: 10 mg Cefazolin Sodium (Ancef 1gm Ivpb (Pre-Docked)) 50 mls @ 100 mls/hr IVPB BID [facility] Last Admin: 12/27/16 11:27 Dose: 100 mls/hr Potassium Chloride/Sodium Chloride (Ns+20 Meq Kcl -) 1,000 mls @ 83 mls/hr IV ASDIR [facility] Last Admin: 12/27/16 11:29 Dose: 83 mls/hr Insulin Aspart (Novolog Vial Sliding Scale -) 1 vial SQ ACHS [facility] PRN Reason: Protocol Last Admin: 12/27/16 11:36 Dose: 5 units Insulin Detemir (Levemir Vial) 50 units SQ HS [facility] Last Admin: 12/26/16 22:18 Dose: 50 units Insulin Detemir (Levemir Vial) 50 units SQ AM [facility] Last Admin: 12/27/16 06:49 Dose: 50 units Metoprolol Succinate (Toprol Xl -) 50 mg PO DAILY [facility] Last Admin: 12/27/16 09:11 Dose: 50 mg Morphine Sulfate (Ms Contin -) 60 mg PO TID [facility] Last Admin: 12/27/16 05:59 Dose: 60 mg Nicotine (Nicoderm Patch -) 21 mg TD DAILY [facility] Last Admin: 12/27/16 09:12 Dose: 21 mg Ondansetron HCl (Zofran Injection) 4 mg IVPB Q6H PRN PRN Reason: NAUSEA Oxycodone HCl (Roxicodone -) 30 mg PO Q4H PRN PRN Reason: PAIN Last Admin: 12/27/16 09:25 Dose: 30 mg Polyethylene Glycol (Miralax (For Daily Use) -) 17 gm PO BID PRN PRN Reason: CONSTIPATION Pregabalin (Lyrica -) 25 mg PO BID [facility] Last Admin: 12/27/16 09:26 Dose: 25 mg - Objective Vital Signs: Vital Signs Temperature 97.8 F 12/27/16 10:09 Pulse Rate 76 12/27/16 10:09 Respiratory Rate 16 12/27/16 10:09 Blood Pressure 142/79 12/27/16 10:09 O2 Sat by Pulse Oximetry (%) 98 12/26/16 21:00 Constitutional: Yes: Well Nourished, No Distress Cardiovascular: Yes: Regular Rate and Rhythm. No: Gallop, Murmur, Rub Respiratory: Yes: Regular, CTA Bilaterally. No: Rales, Rhonchi, Wheezes Gastrointestinal: Yes: Normal Bowel Sounds, Soft. No: Distention, Tenderness Extremities: Yes: Erythema, Other (wounds) Edema: No Labs: CBC, BMP 12/27/16 06:45 12/27/16 06:45 Problem List - Problems (1) Uremic encephalopathy Code(s): G93.41 - METABOLIC ENCEPHALOPATHY N19 - UNSPECIFIED KIDNEY FAILURE (2) Renal failure (ARF), acute on chronic Code(s): N17.9 - ACUTE KIDNEY FAILURE, UNSPECIFIED N18.9 - CHRONIC KIDNEY DISEASE, UNSPECIFIED (3) Cellulitis Code(s): L03.90 - CELLULITIS, UNSPECIFIED Qualifiers: Site of cellulitis: extremity Site of cellulitis of extremity: lower extremity Laterality: left Qualified Code(s): L03.116 - Cellulitis of left lower limb (4) Diabetes mellitus Code(s): E11.9 - TYPE 2 DIABETES MELLITUS WITHOUT COMPLICATIONS Qualifiers: Diabetes mellitus type: type 1 Diabetes mellitus complication status: with hyperglycemia Qualified Code(s): E10.65 - Type 1 diabetes mellitus with hyperglycemia (5) Hypomagnesemia Code(s): E83.42 - HYPOMAGNESEMIA (6) Hypertension Code(s): I10 - ESSENTIAL (PRIMARY) HYPERTENSION (7) Hypokalemia Code(s): E87.6 - HYPOKALEMIA (8) CAD (coronary artery disease) Code(s): I25.10 - ATHSCL HEART DISEASE OF [place] CORONARY ARTERY W/O ANG PCTRS Qualifiers: Coronary Disease-Associated Artery/Lesion type: unspecified vessel or lesion type [place] vs. transplanted heart: [place] heart Associated angina: with stable angina Qualified Code(s): I25.119 - Atherosclerotic heart disease of [place] coronary artery with unspecified angina pectoris (9) COPD (chronic obstructive pulmonary disease) Code(s): J44.9 - CHRONIC OBSTRUCTIVE PULMONARY DISEASE, UNSPECIFIED Qualifiers : COPD type: unspecified COPD Qualified Code(s): J44.9 - Chronic obstructive pulmonary disease, unspecified (10) Chronic pain Code(s): G89.29 - OTHER CHRONIC PAIN (11) Congestive heart failure (CHF) Code(s): I50.9 - HEART FAILURE, UNSPECIFIED Qualifiers: Congestive heart failure chronicity: chronic (12) Tobacco abuse Code(s): Z72.0 - TOBACCO USE (13) Fall Code(s): W19.XXXA - UNSPECIFIED FALL, INITIAL ENCOUNTER Qualifiers: Encounter type: initial encounter Qualified Code(s): W19.XXXA - Unspecified fall, initial encounter Assessment/Plan (1) Uremic encephalopathy Assessment/Plan: -mental status much improved today -uremia much improved, but not at baseline -continue hydration and treatment of ARF on CKD Code(s): G93.41 - METABOLIC ENCEPHALOPATHY N19 - UNSPECIFIED KIDNEY FAILURE (2) Renal failure (ARF), acute on chronic Assessment/Plan: -improving -continue IVF -work up per nephrology Code(s): N17.9 - ACUTE KIDNEY FAILURE, UNSPECIFIED N18.9 - CHRONIC KIDNEY DISEASE, UNSPECIFIED (3) Cellulitis Assessment/Plan: -with wounds on BLE -erythema not severe, but with leukocytosis -considering poorly controlled diabetes, concerning -placed on empiric cefazolin Code(s): L03.90 - CELLULITIS, UNSPECIFIED Qualifiers: Site of cellulitis: extremity Site of cellulitis of extremity: lower extremity Laterality: left Qualified Code(s): L03.116 - Cellulitis of left lower limb (4) Diabetes mellitus Assessment/Plan: -continues to have hyperglycemia -will monitor SSI need of insulin and adjust levemir as needed -endocrinology consulted and awaiting recommendations -continue levemir 50 units bid -SSI and diabetic diet -poorly controlled Code(s): E11.9 - TYPE 2 DIABETES MELLITUS WITHOUT COMPLICATIONS Qualifiers: Diabetes mellitus type: type 1 Diabetes mellitus complication status: with hyperglycemia Qualified Code(s): E10.65 - Type 1 diabetes mellitus with hyperglycemia (5) Hypomagnesemia Assessment/Plan: -replace per nephrology Code(s): E83.42 - HYPOMAGNESEMIA (6) Hypertension Assessment/Plan: -controlled -continue toprol xl and hydralazine Code(s): I10 - ESSENTIAL (PRIMARY) HYPERTENSION (7) Hypokalemia Assessment/Plan: -replace Code(s): E87.6 - HYPOKALEMIA (8) CAD (coronary artery disease) Assessment/Plan: -without chest pain -cardiac enzymes negative -continue home regimen Code(s): I25.10 - ATHSCL HEART DISEASE OF [place] CORONARY ARTERY W/O ANG PCTRS Qualifiers: Coronary Disease-Associated Artery/Lesion type: unspecified vessel or lesion type [place] vs. transplanted heart: [place] heart Associated angina: with stable angina Qualified Code(s): I25.119 - Atherosclerotic heart disease of [place] coronary artery with unspecified angina pectoris (9) COPD (chronic obstructive pulmonary disease) Assessment/Plan: -stable -continue home regimen Code(s): J44.9 - CHRONIC OBSTRUCTIVE PULMONARY DISEASE, UNSPECIFIED Qualifiers : COPD type: unspecified COPD Qualified Code(s): J44.9 - Chronic obstructive pulmonary disease, unspecified (10) Chronic pain Assessment/Plan: -continue home regimen of [place] Contin, pregabalin, and prn oxycodone Code(s): G89.29 - OTHER CHRONIC PAIN (11) Congestive heart failure (CHF) Assessment/Plan: -not in exacerbation -hold diuretics currently -hydration -close monitoring for fluid overload Code(s): I50.9 - HEART FAILURE, UNSPECIFIED Qualifiers: Congestive heart failure chronicity: chronic (12) Tobacco abuse Assessment/Plan: -nicotine patch Code(s): Z72.0 - TOBACCO USE (13) Fall Assessment/Plan: -no fractures per x-ray -PT consulted and following Code(s): W19.XXXA - UNSPECIFIED FALL, INITIAL ENCOUNTER Qualifiers: Encounter type: initial encounter Qualified Code(s): W19.XXXA - Unspecified fall, initial encounter
[2016-12-27] MEDS: BACITRACIN 30 GM TUBE TOPICAL OINTMENT TP SCH (15:23)
[2016-12-27 21:30] LABS: CALCIUM 8.2 mg/dL (8.5-10.1); CREATININE 1.6 mg/dL (0.7-1.3); MAGNESIUM 2.4 mg/dL (1.8-2.4)
[2016-12-27] MEDS: ATORVASTATIN CA 40 MG TABLET (FP) PO SCH (22:10)
--- NOTE | 2016-12-27 23:59 | CONSULT ---
Consult Consult Specialty:: endocrine Referred by:: dr.[email or web address] [email or web address] Reason for Consultation:: iddm uncontrolled - History of Present Illness Chief Complaint: high sugars History of Present Illness: 66 y male,multiple medical problems,iddm neuropathy presents after fall and head injury,admitts noncompliance with diabetes illness,frequent high sugars, diabetic feet infections,poor mobility and ballance altered sense of awareness to surroundings. 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 No: AFIB Pulmonary: Yes: COPD Gastrointestinal: Yes: Other (Colitis) Renal/: Yes: Renal Inusuff, Other (hyperkalemia) Psych: Yes: Addictions Musculoskeletal: Yes: Other (Lumbar radiculopathy) Endocrine: Yes: Diabetes Mellitus - Past Surgical History Past Surgical History: Yes: Stent - Alcohol/Substance Use Hx Alcohol Use: No History of Substance Use: reports: None - Smoking History Smoking history: Current every day smoker Have you smoked in the past 12 months: Yes Aproximately how many cigarettes per day: 30 If you are a former smoker, when did you quit?: DOWN FROM 5 PACKS DAILY TO 2.5 PACKS DAILY - Social History Usual Living Arrangement: With Spouse ADL: Independent History of Recent Travel: No Home Medications - Allergies Allergies/Adverse Reactions: Allergies Allergy/AdvReac Type Severity Reaction Status Date / Time pantoprazole sodium Allergy Verified 08/14/16 09:49 [From Protonix] - Home Medications Home Medications: Ambulatory Orders Atorvastatin Ca [Lipitor] 40 mg PO HS #0 tablet 02/19/14 Clopidogrel Bisulfate [Plavix -] 75 mg PO DAILY #20 tablet 02/19/14 Aspirin [Ecotrin] 81 mg PO DAILY 04/29/15 Temazepam [Restoril -] 60 mg PO HS 08/24/15 Docusate Sodium [Colace -] 100 mg PO BID capsule 08/26/15 Insulin Aspart [Novolog] 0 unit SQ PRN PRN 01/10/16 Metoprolol Succinate [Toprol XL -] 50 mg PO DAILY 01/10/16 Aclidinium [place] [Tudorza -] 1 inh PO BID 08/13/16 Budesonide/Formeterol Fumarate [SYMBICORT 160/4.5mcg -] 2 inh PO BID 08/13/16 Morphine *Sr* [MS Contin -] 60 mg PO TID 08/13/16 Albuterol 0.083% Nebulizer [place] [Ventolin 0.083% Nebulizer Soln -] 1 amp NEB QIDR amp 08/14/16 Hydralazine HCl [Apresoline -] 10 mg PO BID #180 tablet 08/14/16 Insulin (Levemir) [Levemir Vial] 50 unit SQ AM #0 08/14/16 Insulin (Levemir) [Levemir Vial] 50 units SQ HS ml 08/14/16 Morphine *Sr* [MS Contin -] 60 mg PO TID #90 tablet.sa MDD 3 08/14/16 Oxycodone HCl [Roxicodone -] 30 mg PO Q4H PRN #0 tablet MDD 6 08/14/16 Polyethylene Glycol 3350 [Miralax 119 gm Btl -] 17 gm PO BID PRN #0 bottle 08/14 Torsemide [Demadex -] 40 mg PO DAILY #180 tablet 08/14/16 Family Disease History - Family Disease History Family Disease History: Diabetes: Grandparent, Sister (COPD), [place]: Father, Respiratory: Sister, Other: Mother (CVA) Review of Systems - Review of Systems Constitutional: reports: Lethargy, Weakness Eyes: reports: Blurred Vision HENT: reports: No Symptoms Neck: reports: Pain on Movement, Tenderness Cardiovascular: reports: Shortness of Breath Respiratory: reports: Exercise Intolerance, SOB on Exertion Gastrointestinal: reports: No Symptoms Genitourinary: reports: No Symptoms Breasts: reports: No Symptoms Reported Musculoskeletal: reports: Joint Swelling, Muscle Pain, Muscle Cramps, Muscle Weakness Integumentary: reports: Blister, Lesions, Wound Neurological: reports: Dizziness, Numbness, Unsteady Gait, Weakness Endocrine: reports: Unexplained Weight Loss Physical Exam Vital Signs: Vital Signs Temperature 97.7 F 12/27/16 20:00 Pulse Rate 68 12/27/16 20:00 Respiratory Rate 16 12/27/16 20:00 Blood Pressure 142/87 12/27/16 20:00 O2 Sat by Pulse Oximetry (%) 98 12/26/16 21:00 Constitutional: Yes: Anxious Eyes: Yes: EOM Intact HENT: Yes: Normocephalic Neck: Yes: Trachea Midline Cardiovascular: Yes: Regular Rate and Rhythm Respiratory: Yes: CTA Bilaterally Gastrointestinal: Yes: Normal Bowel Sounds ...Rectal Exam: Yes: Deferred Renal/: Yes: WNL Breast(s): Yes: WNL Extremities: Yes: Delayed Capillary Refill Edema: Yes Peripheral Pulses WNL: No Integumentary: Yes: Onychomycosis, Venous Stasis Changes Wound/Incision: Yes: Dressing Removed Neurological: Yes: Alert, Oriented, Numbness, Weakness Labs: CBC, BMP 12/27/16 06:45 12/27/16 20:45 Problem List - Problems (1) Diabetic foot ulcer Code(s): E11.621 - TYPE 2 DIABETES MELLITUS WITH FOOT ULCER L97.509 - NON-PRESSURE CHRONIC ULCER OTH PRT UNSP FOOT W UNSP SEVERITY (2) Type 2 diabetes mellitus with diabetic autonomic (poly)neuropathy Code(s): E11.43 - TYPE 2 DIABETES W DIABETIC AUTONOMIC (POLY)NEUROPATHY Assessment/Plan Current Active Problems Chest pain (Acute) Diabetic foot ulcer (Acute) Fall (Acute) Hypokalemia (Acute) Uremic encephalopathy (Acute) iddm uncontrolled polyneuropathy hyperglycemia Abnormal Lab Results 12/27/16 12/27/16 12/27/16 06:45 06:45 08:00 WBC 17.4 H Potassium 2.9 L* Anion Gap BUN 93 H D Creatinine 1.8 H D Random Glucose 248 H D Calcium 8.2 L Magnesium 1.3 L AST 6 L D Alkaline Phosphatase 123 H D Total Protein 5.9 L Albumin 3.3 L U Random Total Protein 21 H 12/27/16 20:45 WBC Potassium 3.4 L Anion Gap 7 L BUN 64 H D Creatinine 1.6 H Random Glucose 229 H Calcium 8.2 L Magnesium AST Alkaline Phosphatase Total Protein Albumin U Random Total Protein Laboratory Results - last 24 hr 12/27/16 12/27/16 12/27/16 05:56 06:45 06:45 WBC 17.4 H RBC 5.04 Hgb 14.5 Hct 43.8 MCV 86.9 MCHC 33.2 RDW 14.3 Plt Count 202 MPV 9.8 Neutrophils % 80.6 Lymphocytes % 12.0 D Monocytes % 5.8 Eosinophils % 1.0 D Basophils % 0.6 D Sodium 143 Potassium 2.9 L* Chloride 103 D Carbon Dioxide 28 Anion Gap 12 BUN 93 H D Creatinine 1.8 H D Creat Clearance w eGFR 37.71 POC Glucometer 272 Random Glucose 248 H D Calcium 8.2 L Phosphorus 3.1 Magnesium 1.3 L Total Bilirubin 0.6 AST 6 L D ALT 15 Alkaline Phosphatase 123 H D Total Protein 5.9 L Albumin 3.3 L Urine Color Urine Appearance Urine pH Ur Specific [place] Urine Protein Urine Glucose (UA) Urine Ketones Urine Blood Urine Nitrite Urine Bilirubin Urine Urobilinogen Ur Leukocyte Esterase U Random Total Protein Ur Random Sodium Ur Random Potassium Ur Random Chloride Ur Random Urea Nitrogn Urine Creatinine 12/27/16 12/27/16 12/27/16 08:00 08:00 08:00 WBC RBC Hgb Hct MCV MCHC RDW Plt Count MPV Neutrophils % Lymphocytes % Monocytes % Eosinophils % Basophils % Sodium Potassium Chloride Carbon Dioxide Anion Gap BUN Creatinine Creat Clearance w eGFR POC Glucometer Random Glucose Calcium Phosphorus Magnesium Total Bilirubin AST ALT Alkaline Phosphatase Total Protein Albumin Urine Color Straw Urine Appearance Clear Urine pH 6.0 Ur Specific [place] 1.010 Urine Protein Negative Urine Glucose (UA) Negative Urine Ketones Negative Urine Blood Negative Urine Nitrite Negative Urine Bilirubin Negative Urine Urobilinogen Negative Ur Leukocyte Esterase Negative U Random Total Protein 21 H Ur Random Sodium Cancelled 41 Ur Random Potassium 9.8 Ur Random Chloride 31 Ur Random Urea Nitrogn 699 Urine Creatinine 49.5 12/27/16 12/27/16 12/27/16 08:00 08:00 11:26 WBC RBC Hgb Hct MCV MCHC RDW Plt Count MPV Neutrophils % Lymphocytes % Monocytes % Eosinophils % Basophils % Sodium Potassium Chloride Carbon Dioxide Anion Gap BUN Creatinine Creat Clearance w eGFR POC Glucometer 216 Random Glucose Calcium Phosphorus Magnesium Total Bilirubin AST ALT Alkaline Phosphatase Total Protein Albumin Urine Color Urine Appearance Urine pH Ur Specific [place] Urine Protein Urine Glucose (UA) Urine Ketones Urine Blood Urine Nitrite Urine Bilirubin Urine Urobilinogen Ur Leukocyte Esterase U Random Total Protein Cancelled Ur Random Sodium Ur Random Potassium Ur Random Chloride Ur Random Urea Nitrogn Urine Creatinine Cancelled 12/27/16 12/27/16 12/27/16 16:22 20:45 21:39 WBC RBC Hgb Hct MCV MCHC RDW Plt Count MPV Neutrophils % Lymphocytes % Monocytes % Eosinophils % Basophils % Sodium 143 Potassium 3.4 L Chloride 105 Carbon Dioxide 31 Anion Gap 7 L BUN 64 H D Creatinine 1.6 H Creat Clearance w eGFR POC Glucometer 205 211 Random Glucose 229 H Calcium 8.2 L Phosphorus Magnesium 2.4 D Total Bilirubin AST ALT Alkaline Phosphatase Total Protein Albumin Urine Color Urine Appearance Urine pH Ur Specific [place] Urine Protein Urine Glucose (UA) Urine Ketones Urine Blood Urine Nitrite Urine Bilirubin Urine Urobilinogen Ur Leukocyte Esterase U Random Total Protein Ur Random Sodium Ur Random Potassium Ur Random Chloride Ur Random Urea Nitrogn Urine Creatinine Current Medications Generic Name Dose Route Start Last Admin Trade Name Freq PRN Reason Stop Dose Admin Acetaminophen 650 mg 12/26/16 15:59 12/27/16 20:50 Tylenol - PO 650 mg Q4H PRN Administration FEVER OR PAIN Aclidinium [place] 1 puff 12/26/16 22:00 12/27/16 22:36 Tudorza - IH 1 puff BID RAHDA Administration Albuterol Sulfate 1 amp 12/26/16 18:00 12/27/16 17:18 Ventolin 0.083% Nebulizer Soln - NEB Not Given QIDR RADHA Aspirin 81 mg 12/27/16 10:00 12/27/16 09:10 Ecotrin - PO 81 mg DAILY RADHA Administration Atorvastatin Calcium 40 mg 12/26/16 22:00 12/27/16 22:10 Lipitor - PO 40 mg HS RADHA Administration Bacitracin 1 applic 12/27/16 10:00 12/27/16 15:23 Bacitracin - TP 1 applic DAILY RADHA Administration Budesonide/Formoterol Fumarate 2 puff 12/26/16 22:00 12/27/16 22:36 Symbicort 160/4.5mcg - IH 2 puff BID RADHA Administration Clopidogrel Bisulfate 75 mg 12/27/16 10:00 12/27/16 09:11 Plavix - PO 75 mg DAILY RADHA Administration Docusate Sodium 100 mg 12/26/16 22:00 12/27/16 22:10 Colace - PO 100 mg BID RADHA Administration Heparin Sodium (Porcine) 5,000 unit 12/26/16 22:00 12/27/16 22:25 Heparin - SQ 5,000 unit TID RADHA Administration Hydralazine HCl 10 mg 12/26/16 22:00 12/27/16 22:36 Apresoline - PO 10 mg BID RADHA Administration Cefazolin Sodium 50 mls @ 100 mls/hr 12/27/16 11:00 12/27/16 22:11 Ancef 1gm Ivpb (Pre-Docked) IVPB 100 mls/hr BID RADHA Administration Potassium Chloride/Sodium Chloride 1,000 mls @ 83 mls/hr 12/27/16 10:26 11:29 Ns+20 Meq Kcl - IV 83 mls/hr ASDIR RADHA Administration Insulin Aspart 1 vial 12/27/16 23:50 Novolog Vial Sliding Scale - SQ ACHS [facility] Protocol Insulin Detemir 50 units 12/26/16 22:00 12/27/16 22:24 Levemir Vial SQ 50 units HS RADHA Administration Insulin Detemir 50 units 12/27/16 07:00 12/27/16 06:49 Levemir Vial SQ 50 units AM RADHA Administration Metoprolol Succinate 50 mg 12/27/16 10:00 12/27/16 09:11 Toprol Xl - PO 50 mg DAILY RAD[facility] Administration Morphine Sulfate 60 mg 12/26/16 22:00 12/27/16 22:09 Ms Contin - PO 60 mg TID RADHA Administration Nicotine 21 mg 12/26/16 16:45 12/27/16 09:12 Nicoderm Patch - TD 21 mg DAILY RAD[facility] Administration Ondansetron HCl 4 mg 12/26/16 15:59 Zofran Injection IVPB Q6H PRN NAUSEA Oxycodone HCl 30 mg 12/27/16 08:58 12/27/16 17:30 Roxicodone - PO 30 mg Q4H PRN Administration PAIN Polyethylene Glycol 17 gm 12/26/16 16:29 Miralax (For Daily Use) - PO BID PRN CONSTIPATION Pregabalin 25 mg 12/27/16 10:00 12/27/16 22:10 Lyrica - PO 25 mg BID RADHA Administration plan: bgm as ordered with coverage levemir 50units bid ckd restriction on use other agents vascular consult pad,and diabetic wounds consult appreciated will need better diet and family involvement given history of noncompliance
[2016-12-28] MEDS: ALBUTEROL SO4 0.083% IH SOL 2.5 MG/3 ML VIAL.NEB. NEB SCH ×4 (00:19→18:38)
[2016-12-28] MEDS: ACETAMINOPHEN 325 MG TABLET (FP) PO PRN ×3 (00:57→15:02)
[2016-12-28] MEDS: SODIUM CHLORIDE 0.9%/KCL 1,000 ML IV SCH (03:42)
[2016-12-28] MEDS: morphine SO4 SUSTAINED ACTING 30 MG TABLET.SA PO SCH ×3 (05:44→21:18)
[2016-12-28] MEDS: HEPARIN NA (PORCINE) 5,000 UNITS/ML 1ML VIAL SQ SCH ×3 (05:45→21:19)
[2016-12-28] MEDS: INSULIN DETEMIR 100 UNITS/ML MDV SQ SCH ×2 (06:43→21:19)
[2016-12-28] MEDS: INSULIN SLIDING SCALE (NOVOLOG) 1 VIAL SQ SCH ×4 (06:44→21:21)
[2016-12-28] MEDS ORDERED: INSULIN (NOVOLOG) ASPART 100 UNITS/ML 10ML VIAL ONE ×3 (07:49→21:08)
[2016-12-28] MEDS ORDERED: INSULIN DETEMIR 100 UNITS/ML MDV SQ ONE (07:50)
[2016-12-28 07:53] LABS: BASOPHIL 0.7 % (0-2.0); EOSINOPHIL 2.3 % (0-4.5); MCH 28.8 pg (25.7-33.7); MCHC 32.8 g/dl (32.0-35.9); MEAN CELL VOLUME 87.8 fl (80-96); MEAN PLT VOLUME 9.7 fl (7.5-11.1); NEUTROPHILS 72.4 % (42.8-82.8); PLATELET COUNT 191 K/MM3 (134-434); RDW 14.3 % (11.9-15.9); WHITE BLOOD COUNT 13.6 K/mm3 (4.0-10.0)
[2016-12-28] MEDS: oxyCODONE HCL 5 MG TABLET PO PRN ×3 (08:08→16:24)
[2016-12-28 08:20] LABS: CALCIUM 8.1 mg/dL (8.5-10.1); CREATININE 1.4 mg/dL (0.7-1.3); MAGNESIUM 2.1 mg/dL (1.8-2.4); PHOSPHOROUS 2.3 mg/dL (2.5-4.9)
[2016-12-28 08:22] LABS: BILIRUBIN,TOTAL 0.5 mg/dL (0.2-1.0); TOT PROT 5.5 g/dl (6.4-8.2)
--- NOTE | 2016-12-28 08:53 | PN ---
Progress Note, Physician Chief Complaint: ID Cefazolin per Dr Sol - Current Medication List Current Medications: Active Medications Acetaminophen (Tylenol -) 650 mg PO Q4H PRN PRN Reason: FEVER OR PAIN Last Admin: 12/28/16 00:57 Dose: 650 mg Aclidinium [place] (Tudorza -) 1 puff IH BID [facility] Last Admin: 12/27/16 22:36 Dose: 1 puff Albuterol Sulfate (Ventolin 0.083% Nebulizer Soln -) 1 amp NEB QIDR [facility] Last Admin: 12/28/16 05:51 Dose: Not Given Aspirin (Ecotrin -) 81 mg PO DAILY [facility] Last Admin: 12/27/16 09:10 Dose: 81 mg Atorvastatin Calcium (Lipitor -) 40 mg PO HS [facility] Last Admin: 12/27/16 22:10 Dose: 40 mg Bacitracin (Bacitracin -) 1 applic TP DAILY [facility] Last Admin: 12/27/16 15:23 Dose: 1 applic Budesonide/Formoterol Fumarate (Symbicort 160/4.5mcg -) 2 puff IH BID [facility] Last Admin: 12/27/16 22:36 Dose: 2 puff Clopidogrel Bisulfate (Plavix -) 75 mg PO DAILY [facility] Last Admin: 12/27/16 09:11 Dose: 75 mg Docusate Sodium (Colace -) 100 mg PO BID [facility] Last Admin: 12/27/16 22:10 Dose: 100 mg Heparin Sodium (Porcine) (Heparin -) 5,000 unit SQ TID [facility] Last Admin: 12/28/16 05:45 Dose: 5,000 unit Hydralazine HCl (Apresoline -) 10 mg PO BID [facility] Last Admin: 12/27/16 22:36 Dose: 10 mg Cefazolin Sodium (Ancef 1gm Ivpb (Pre-Docked)) 50 mls @ 100 mls/hr IVPB BID [facility] Last Admin: 12/27/16 22:11 Dose: 100 mls/hr Potassium Chloride/Sodium Chloride (Ns+20 Meq Kcl -) 1,000 mls @ 83 mls/hr IV ASDIR [facility] Last Admin: 12/28/16 03:42 Dose: 83 mls/hr Insulin Aspart (Novolog Vial Sliding Scale -) 1 vial SQ ACHS [facility] PRN Reason: Protocol Last Admin: 12/28/16 06:44 Dose: 6 units Insulin Detemir (Levemir Vial) 50 units SQ HS [facility] Last Admin: 12/27/16 22:24 Dose: 50 units Insulin Detemir (Levemir Vial) 50 units SQ AM [facility] Last Admin: 12/28/16 06:43 Dose: 50 units Metoprolol Succinate (Toprol Xl -) 50 mg PO DAILY [facility] Last Admin: 12/27/16 09:11 Dose: 50 mg Morphine Sulfate (Ms Contin -) 60 mg PO TID [facility] Last Admin: 12/28/16 05:44 Dose: 60 mg Nicotine (Nicoderm Patch -) 21 mg TD DAILY [facility] Last Admin: 12/27/16 09:12 Dose: 21 mg Ondansetron HCl (Zofran Injection) 4 mg IVPB Q6H PRN PRN Reason: NAUSEA Oxycodone HCl (Roxicodone -) 30 mg PO Q4H PRN PRN Reason: PAIN Last Admin: 12/28/16 08:08 Dose: 30 mg Polyethylene Glycol (Miralax (For Daily Use) -) 17 gm PO BID PRN PRN Reason: CONSTIPATION Pregabalin (Lyrica -) 25 mg PO BID [facility] Last Admin: 12/27/16 22:10 Dose: 25 mg - Objective Vital Signs: Vital Signs Temperature 97.6 F 12/28/16 06:00 Pulse Rate 67 12/28/16 06:00 Respiratory Rate 20 12/28/16 06:00 Blood Pressure 154/94 12/28/16 06:00 O2 Sat by Pulse Oximetry (%) 98 12/27/16 21:00 Constitutional: Yes: Well Nourished, No Distress HENT: Yes: WNL, Atraumatic Neck: Yes: WNL, Supple Cardiovascular: Yes: S1, S2 Respiratory: Yes: WNL, Regular, CTA Bilaterally Gastrointestinal: Yes: Soft. No: Tenderness Extremities: Yes: Erythema, Other (left 2nd toe with dry necrotic small ulcer red medial foot open draining wound Blister toe right foot) Edema: No Labs: CBC, BMP 12/28/16 06:00 12/28/16 06:00 Assessment/Plan Microbiology 12/26/16 16:42 Foot - Left Dorsum Gram Stain - Final 12/26/16 19:15 Blood - Peripheral Venous Blood Culture - Preliminary NO GROWTH OBTAINED AFTER 24 HOURS, INCUBATION TO CONTINUE FOR 4 DAYS. 12/26/16 19:15 Blood - Peripheral Venous Blood Culture - Preliminary NO GROWTH OBTAINED AFTER 24 HOURS, INCUBATION TO CONTINUE FOR 4 DAYS. Laboratory Tests 12/26/16 12/27/16 12/28/16 12:25 06:45 06:00 WBC 20.2 H D 17.4 H 13.6 H Hgb 13.8 Hct 42.0 Plt Count 191 BUN Creatinine Creat Clearance w eGFR 12/28/16 06:00 WBC Hgb Hct Plt Count BUN 50 H D Creatinine 1.4 H Creat Clearance w eGFR 50.40 Assessment Diabetic foot infection with open ulcer inner left foot draining us not fluctuant cellulitis Plan Await wound culture Cefazolin continue Add metronidazole for possible mixed infection in this IDDM Humaira BRADLEY
[2016-12-28] MEDS ORDERED: PT OWN MED DRAWER 7, Y5N ONE ×2 (09:35→20:59)
[2016-12-28] MEDS: NICOTINE 21 MG/24 HOURS TOPICAL PATCH TD SCH ×2 (09:36→09:45)
[2016-12-28] MEDS: ASPIRIN COATED 81 MG TABLET.EC PO SCH (09:37)
[2016-12-28] MEDS: DOCUSATE SODIUM 100 MG CAPSULE (FP) PO SCH ×2 (09:37→21:19)
[2016-12-28] MEDS: hydrALAZINE HCL 10 MG TABLET PO SCH ×2 (09:37→21:19)
[2016-12-28] MEDS: PREGABALIN 25 MG CAPSULE PO SCH ×2 (09:37→21:21)
[2016-12-28] MEDS: CEFAZOLIN (PRE-DOCKED) 50 ML IVPB SCH (09:37)
[2016-12-28] MEDS: CLOPIDOGREL BISULFATE 75 MG TABLET (FP) PO SCH (09:37)
[2016-12-28] MEDS: METOPROLOL SUCCINATE 50 MG TAB.SR.24H (FP) PO SCH (09:38)
[2016-12-28] MEDS: ACLIDINIUM BROMIDE 400 MCG/INH AERO.POWD IH SCH ×2 (09:38→21:22)
[2016-12-28] MEDS: BUDESONIDE/FORMETEROL FUMARATE 160/4.5 mcg INHALER IH SCH ×2 (09:38→21:22)
[2016-12-28] MEDS ORDERED: POTASSIUM CHLORIDE TABS 20 MEQ TABLET.ER (FP) PO ONE (10:30)
--- NOTE | 2016-12-28 10:37 | PN ---
Progress Note (short form) - Note Progress Note: Renal Follow up for BRANT on CKD Pt seen and examined at the bedside complains of back pain no chest pain mild sob no N/V/D Vital Signs Temperature 98.4 F 12/28/16 10:32 Pulse Rate 65 12/28/16 10:32 Respiratory Rate 18 12/28/16 10:32 Blood Pressure 158/94 12/28/16 10:32 O2 Sat by Pulse Oximetry (%) 97 12/28/16 10:25 Intake & Output 12/25/16 12/26/16 12/27/16 12/28/16 23:59 23:59 23:59 23:59 Intake Total 300 3123 830 Output Total 1000 4070 600 Balance -700 -947 230 Weight 171 lb Gen: NAD, awake and alert CVS: RRR, No M/R Lungs: Dec BS lower lung pena Abd: soft NT/ND Ext: No edema, clubbing or cyanosis. Right foot open blister. No erythema. CBC, BMP 12/28/16 06:00 12/28/16 06:00 Current Medications Acetaminophen (Tylenol -) 650 mg PO Q4H PRN PRN Reason: FEVER OR PAIN Last Admin: 12/28/16 09:38 Dose: 650 mg Aclidinium [place] (Tudorza -) 1 puff IH BID [facility] Last Admin: 12/28/16 09:38 Dose: 1 puff Albuterol Sulfate (Ventolin 0.083% Nebulizer Soln -) 1 amp NEB QIDR [facility] Last Admin: 12/28/16 05:51 Dose: Not Given Aspirin (Ecotrin -) 81 mg PO DAILY [facility] Last Admin: 12/28/16 09:37 Dose: 81 mg Atorvastatin Calcium (Lipitor -) 40 mg PO HS [facility] Last Admin: 12/27/16 22:10 Dose: 40 mg Bacitracin (Bacitracin -) 1 applic TP DAILY [facility] Last Admin: 12/27/16 15:23 Dose: 1 applic Budesonide/Formoterol Fumarate (Symbicort 160/4.5mcg -) 2 puff IH BID [facility] Last Admin: 12/28/16 09:38 Dose: 2 puff Clopidogrel Bisulfate (Plavix -) 75 mg PO DAILY [facility] Last Admin: 12/28/16 09:37 Dose: 75 mg Docusate Sodium (Colace -) 100 mg PO BID [facility] Last Admin: 12/28/16 09:37 Dose: 100 mg Heparin Sodium (Porcine) (Heparin -) 5,000 unit SQ TID [facility] Last Admin: 12/28/16 05:45 Dose: 5,000 unit Hydralazine HCl (Apresoline -) 10 mg PO BID [facility] Last Admin: 12/28/16 09:37 Dose: 10 mg Cefazolin Sodium (Ancef 1gm Ivpb (Pre-Docked)) 50 mls @ 100 mls/hr IVPB BID [facility] Last Admin: 12/28/16 09:37 Dose: 100 mls/hr Metronidazole (Flagyl 500mg Premixed Ivpb -) 100 mls @ 100 mls/hr IVPB Q8H-IV [facility] Insulin Aspart (Novolog Vial Sliding Scale -) 1 vial SQ ACHS [facility] PRN Reason: Protocol Last Admin: 12/28/16 06:44 Dose: 6 units Insulin Detemir (Levemir Vial) 50 units SQ HS [facility] Last Admin: 12/27/16 22:24 Dose: 50 units Insulin Detemir (Levemir Vial) 50 units SQ AM [facility] Last Admin: 12/28/16 06:43 Dose: 50 units Metoprolol Succinate (Toprol Xl -) 50 mg PO DAILY [facility] Last Admin: 12/28/16 09:38 Dose: 50 mg Morphine Sulfate (Ms Contin -) 60 mg PO TID [facility] Last Admin: 12/28/16 05:44 Dose: 60 mg Nicotine (Nicoderm Patch -) 21 mg TD DAILY [facility] Last Admin: 12/28/16 09:45 Dose: 21 mg Ondansetron HCl (Zofran Injection) 4 mg IVPB Q6H PRN PRN Reason: NAUSEA Oxycodone HCl (Roxicodone -) 30 mg PO Q4H PRN PRN Reason: PAIN Last Admin: 12/28/16 08:08 Dose: 30 mg Polyethylene Glycol (Miralax (For Daily Use) -) 17 gm PO BID PRN PRN Reason: CONSTIPATION Potassium Phos/Sodium Phos (Phos-Nak Packet -) 1 packet PO TID [facility] Stop: 12/29/16 06:01 Pregabalin (Lyrica -) 25 mg PO BID [facility] Last Admin: 12/28/16 09:37 Dose: 25 mg A/P 66 year old Gentleman with PMhx of CKD (baseline Cr unclear, IDDM, CVA, CAD s/p PCI and stenting, CHF, COPD, Current smoker who presented from [facility] with fall and [facility] and found to have BUN/Cr of 128/2.6. #Acute Kidney Injury Secondary to volume depletion in setting of hyperglycemia and diuretics Renal function with significnat improvement with IVF hold IVF today as pt with some sob maintain off diuretics for now #Hypernatremia/Hypokalemia Hold Isotonic IVF Give KCL 40meq PO x 1 #Fall X-rays w/o evidence of fracture CT head negative #Hyperglycemia/IDDM continue insulin as per primary Endocrine evaluation Gerber Rodriguez DO
[2016-12-28] MEDS: METRONIDAZOLE 500 MG PREMIXED 100 ML IVPB SCH ×2 (11:29→17:32)
[2016-12-28] MEDS: BACITRACIN 30 GM TUBE TOPICAL OINTMENT TP SCH (11:29)
--- NOTE | 2016-12-28 11:34 | PN ---
Progress Note, Physician Chief Complaint: Mr Scott complains of pain, saying he feels he is not getting enough pain medications here. No chest pressure, shortness of breath, abdominal pain. Had episode of nausea earlier but has resolved - Current Medication List Current Medications: Active Medications Acetaminophen (Tylenol -) 650 mg PO Q4H PRN PRN Reason: FEVER OR PAIN Last Admin: 12/28/16 09:38 Dose: 650 mg Aclidinium [place] (Tudorza -) 1 puff IH BID [facility] Last Admin: 12/28/16 09:38 Dose: 1 puff Albuterol Sulfate (Ventolin 0.083% Nebulizer Soln -) 1 amp NEB QIDR [facility] Last Admin: 12/28/16 05:51 Dose: Not Given Aspirin (Ecotrin -) 81 mg PO DAILY [facility] Last Admin: 12/28/16 09:37 Dose: 81 mg Atorvastatin Calcium (Lipitor -) 40 mg PO HS [facility] [place] Last Admin: 12/27/16 22:10 Dose: 40 mg Bacitracin (Bacitracin -) 1 applic TP DAILY [facility] [place] Last Admin: 12/28/16 11:29 Dose: 1 applic Budesonide/Formoterol Fumarate (Symbicort 160/4.5mcg -) 2 puff IH BID [facility] Last Admin: 12/28/16 09:38 Dose: 2 puff Clopidogrel Bisulfate (Plavix -) 75 mg PO DAILY [facility] [place] Last Admin: 12/28/16 09:37 Dose: 75 mg Docusate Sodium (Colace -) 100 mg PO BID [facility] [place] Last Admin: 12/28/16 09:37 Dose: 100 mg Heparin Sodium (Porcine) (Heparin -) 5,000 unit SQ TID [facility] Last Admin: 12/28/16 05:45 Dose: 5,000 unit Hydralazine HCl (Apresoline -) 10 mg PO BID [facility] [place] Last Admin: 12/28/16 09:37 Dose: 10 mg Cefazolin Sodium (Ancef 1gm Ivpb (Pre-Docked)) 50 mls @ 100 mls/hr IVPB BID [facility] [place] Last Admin: 12/28/16 09:37 Dose: 100 mls/hr Metronidazole (Flagyl 500mg Premixed Ivpb -) 100 mls @ 100 mls/hr IVPB Q8H-IV [facility] Last Admin: 12/28/16 11:29 Dose: 100 mls/hr Insulin Aspart (Novolog Vial Sliding Scale -) 1 vial SQ ACHS [facility] PRN Reason: Protocol Last Admin: 12/28/16 11:29 Dose: 6 units Insulin Detemir (Levemir Vial) 50 units SQ HS [facility] Last Admin: 12/27/16 22:24 Dose: 50 units Insulin Detemir (Levemir Vial) 50 units SQ AM [facility] Last Admin: 12/28/16 06:43 Dose: 50 units Metoprolol Succinate (Toprol Xl -) 50 mg PO DAILY [facility] Last Admin: 12/28/16 09:38 Dose: 50 mg Morphine Sulfate (Ms Contin -) 60 mg PO TID [facility] [place] Last Admin: 12/28/16 05:44 Dose: 60 mg Nicotine (Nicoderm Patch -) 21 mg TD DAILY [facility] Last Admin: 12/28/16 09:45 Dose: 21 mg Ondansetron HCl (Zofran Injection) 4 mg IVPB Q6H PRN PRN Reason: NAUSEA Oxycodone HCl (Roxicodone -) 30 mg PO Q4H PRN PRN Reason: PAIN Last Admin: 12/28/16 08:08 Dose: 30 mg Polyethylene Glycol (Miralax (For Daily Use) -) 17 gm PO BID PRN PRN Reason: CONSTIPATION Potassium Phos/Sodium Phos (Phos-Nak Packet -) 1 packet PO TID [facility] [place] Stop: 12/29/16 06:01 Pregabalin (Lyrica -) 25 mg PO BID [facility] [place] Last Admin: 12/28/16 09:37 Dose: 25 mg - Objective Vital Signs: Vital Signs Temperature 98.4 F 12/28/16 10:32 Pulse Rate 65 12/28/16 10:32 Respiratory Rate 18 12/28/16 10:32 Blood Pressure 158/94 12/28/16 10:32 O2 Sat by Pulse Oximetry (%) 97 12/28/16 10:25 Constitutional: Yes: Well Nourished, No Distress, Calm Cardiovascular: Yes: Regular Rate and Rhythm. No: Gallop, Murmur, Rub Respiratory: Yes: Regular, CTA Bilaterally. No: Rales, Rhonchi, Wheezes Gastrointestinal: Yes: Normal Bowel Sounds, Soft. No: Distention, Tenderness Extremities: Yes: WNL Edema: No Labs: CBC, BMP 12/28/16 06:00 12/28/16 06:00 Problem List - Problems (1) Uremic encephalopathy Code(s): G93.41 - METABOLIC ENCEPHALOPATHY N19 - UNSPECIFIED KIDNEY FAILURE (2) Renal failure (ARF), acute on chronic Code(s): N17.9 - ACUTE KIDNEY FAILURE, UNSPECIFIED N18.9 - CHRONIC KIDNEY DISEASE, UNSPECIFIED (3) Cellulitis Code(s): L03.90 - CELLULITIS, UNSPECIFIED Qualifiers: Site of cellulitis: extremity Site of cellulitis of extremity: lower extremity Laterality: left Qualified Code(s): L03.116 - Cellulitis of left lower limb (4) Diabetes mellitus Code(s): E11.9 - TYPE 2 DIABETES MELLITUS WITHOUT COMPLICATIONS Qualifiers: Diabetes mellitus type: type 1 Diabetes mellitus complication status: with hyperglycemia Qualified Code(s): E10.65 - Type 1 diabetes mellitus with hyperglycemia (5) Hypomagnesemia Code(s): E83.42 - HYPOMAGNESEMIA (6) Hypertension Code(s): I10 - ESSENTIAL (PRIMARY) HYPERTENSION (7) Hypokalemia Code(s): E87.6 - HYPOKALEMIA (8) CAD (coronary artery disease) Code(s): I25.10 - ATHSCL HEART DISEASE OF [place] CORONARY ARTERY W/O ANG PCTRS Qualifiers: Coronary Disease-Associated Artery/Lesion type: unspecified vessel or lesion type [place] vs. transplanted heart: [place] heart Associated angina: with stable angina Qualified Code(s): I25.119 - Atherosclerotic heart disease of [place] coronary artery with unspecified angina pectoris (9) COPD (chronic obstructive pulmonary disease) Code(s): J44.9 - CHRONIC OBSTRUCTIVE PULMONARY DISEASE, UNSPECIFIED Qualifiers : COPD type: unspecified COPD Qualified Code(s): J44.9 - Chronic obstructive pulmonary disease, unspecified (10) Chronic pain Code(s): G89.29 - OTHER CHRONIC PAIN (11) Congestive heart failure (CHF) Code(s): I50.9 - HEART FAILURE, UNSPECIFIED Qualifiers: Congestive heart failure chronicity: chronic (12) Tobacco abuse Code(s): Z72.0 - TOBACCO USE (13) Fall Code(s): W19.XXXA - UNSPECIFIED FALL, INITIAL ENCOUNTER Qualifiers: Encounter type: initial encounter Qualified Code(s): W19.XXXA - Unspecified fall, initial encounter Assessment/Plan (1) Uremic encephalopathy Assessment/Plan: -resolved Code(s): G93.41 - METABOLIC ENCEPHALOPATHY N19 - UNSPECIFIED KIDNEY FAILURE (2) Renal failure (ARF), acute on chronic Assessment/Plan: -much improved -IVF stopped per nephrology -patient did not complain of shortness of breath to me, but agree with stopping fluids Code(s): N17.9 - ACUTE KIDNEY FAILURE, UNSPECIFIED N18.9 - CHRONIC KIDNEY DISEASE, UNSPECIFIED (3) Cellulitis Assessment/Plan: -with wounds on BLE -continue empiric cefazolin Code(s): L03.90 - CELLULITIS, UNSPECIFIED Qualifiers: Site of cellulitis: extremity Site of cellulitis of extremity: lower extremity Laterality: left Qualified Code(s): L03.116 - Cellulitis of left lower limb (4) Diabetes mellitus Assessment/Plan: -appreciate endocrinology assistance -SSI now more liberal -improved control today Code(s): E11.9 - TYPE 2 DIABETES MELLITUS WITHOUT COMPLICATIONS Qualifiers: Diabetes mellitus type: type 1 Diabetes mellitus complication status: with hyperglycemia Qualified Code(s): E10.65 - Type 1 diabetes mellitus with hyperglycemia (5) Hypophosphatemia Assessment/Plan: -replace per nephrology Code(s): E83.42 - HYPOMAGNESEMIA (6) Hypertension Assessment/Plan: -controlled -continue toprol xl and hydralazine Code(s): I10 - ESSENTIAL (PRIMARY) HYPERTENSION (7) Hypokalemia Assessment/Plan: -replace Code(s): E87.6 - HYPOKALEMIA (8) CAD (coronary artery disease) Assessment/Plan: -without chest pain -cardiac enzymes negative -continue home regimen Code(s): I25.10 - ATHSCL HEART DISEASE OF [place] CORONARY ARTERY W/O ANG PCTRS Qualifiers: Coronary Disease-Associated Artery/Lesion type: unspecified vessel or lesion type [place] vs. transplanted heart: [place] heart Associated angina: with stable angina Qualified Code(s): I25.119 - Atherosclerotic heart disease of [place] coronary artery with unspecified angina pectoris (9) COPD (chronic obstructive pulmonary disease) Assessment/Plan: -stable -continue home regimen Code(s): J44.9 - CHRONIC OBSTRUCTIVE PULMONARY DISEASE, UNSPECIFIED Qualifiers : COPD type: unspecified COPD Qualified Code(s): J44.9 - Chronic obstructive pulmonary disease, unspecified (10) Chronic pain Assessment/Plan: -continue home regimen of [place] Contin, pregabalin, and prn oxycodone Code(s): G89.29 - OTHER CHRONIC PAIN (11) Congestive heart failure (CHF) Assessment/Plan: -not in exacerbation -hold diuretics currently -agree with stopping IVF Code(s): I50.9 - HEART FAILURE, UNSPECIFIED Qualifiers: Congestive heart failure chronicity: chronic (12) Tobacco abuse Assessment/Plan: -nicotine patch Code(s): Z72.0 - TOBACCO USE (13) Fall Assessment/Plan: -no fractures per x-ray -PT consulted and following Code(s): W19.XXXA - UNSPECIFIED FALL, INITIAL ENCOUNTER Qualifiers: Encounter type: initial encounter Qualified Code(s): W19.XXXA - Unspecified fall, initial encounter
[2016-12-28] MEDS: VANCOMYCIN 1,250 MG in DEXTROSE 5%-WATER - 250 ML IVPB SCH (13:46)
[2016-12-28] MEDS: NAPH,MB-DB/K PH,MBDB POWDER PACKET PO SCH ×2 (13:47→21:21)
--- NOTE | 2016-12-28 16:25 | PN ---
Progress Note (short form) - Note Progress Note: vascular Surgery Pt seen and examined Has nonhealing diabetic foot ulcer now for over two weeks. No palpable pulses, active smoker. Will do angiogram in am. REnal to hydrate pt further. Spoke to renal Isiah Carson DO
[2016-12-28] MEDS: ATORVASTATIN CA 40 MG TABLET (FP) PO SCH (21:21)
[2016-12-28] MEDS ORDERED: TEMAZEPAM 15 MG CAPSULE PO SCH (22:00)
[2016-12-28] MEDS ORDERED: SODIUM CHLORIDE 1,000 ML IV SCH (22:30)
[2016-12-28] MEDS: ACETYLCYSTEINE 20% 200MG/ML 30 ML VIAL *FOR ORAL / INH USE ONLY PO SCH (22:45)
[2016-12-29] MEDS: ALBUTEROL SO4 0.083% IH SOL 2.5 MG/3 ML VIAL.NEB. NEB SCH ×5 (00:18→23:08)
[2016-12-29] MEDS: oxyCODONE HCL 5 MG TABLET PO PRN ×4 (01:00→20:23)
[2016-12-29] MEDS: METRONIDAZOLE 500 MG PREMIXED 100 ML IVPB SCH ×3 (02:18→17:41)
[2016-12-29] MEDS: NAPH,MB-DB/K PH,MBDB POWDER PACKET PO SCH (06:09)
[2016-12-29] MEDS: HEPARIN NA (PORCINE) 5,000 UNITS/ML 1ML VIAL SQ SCH ×3 (06:09→22:21)
[2016-12-29] MEDS: morphine SO4 SUSTAINED ACTING 30 MG TABLET.SA PO SCH ×3 (06:10→22:21)
[2016-12-29] MEDS: INSULIN DETEMIR 100 UNITS/ML MDV SQ SCH (06:13)
[2016-12-29] MEDS: INSULIN SLIDING SCALE (NOVOLOG) 1 VIAL SQ SCH ×4 (06:13→22:28)
[2016-12-29 08:03] LABS: CALCIUM 8.6 mg/dL (8.5-10.1)
[2016-12-29 08:09] LABS: ALBUMIN 3.1 g/dl (3.4-5.0); ALK PHOS 135 U/L (45-117); ANION GAP 8 (8-16); BILIRUBIN,TOTAL 0.4 mg/dL (0.2-1.0); CO2 30 mmol/L (21-32); CREATININE 1.2 mg/dL (0.7-1.3); GLUCOSE,RANDOM 162 mg/dL (74-106); MAGNESIUM 1.7 mg/dL (1.8-2.4); PHOSPHOROUS 2.2 mg/dL (2.5-4.9); SGOT/AST 19 U/L (15-37); SGPT/ALT 26 U/L (12-78); TOT PROT 5.9 g/dl (6.4-8.2)
[2016-12-29] MEDS: PREGABALIN 25 MG CAPSULE PO SCH ×2 (09:40→22:20)
[2016-12-29] MEDS: METOPROLOL SUCCINATE 50 MG TAB.SR.24H (FP) PO SCH (09:40)
[2016-12-29] MEDS: CLOPIDOGREL BISULFATE 75 MG TABLET (FP) PO SCH (09:40)
[2016-12-29] MEDS: DOCUSATE SODIUM 100 MG CAPSULE (FP) PO SCH ×2 (09:40→22:20)
[2016-12-29] MEDS: ASPIRIN COATED 81 MG TABLET.EC PO SCH (09:41)
[2016-12-29] MEDS: ACLIDINIUM BROMIDE 400 MCG/INH AERO.POWD IH SCH ×2 (09:43→22:18)
[2016-12-29] MEDS: BUDESONIDE/FORMETEROL FUMARATE 160/4.5 mcg INHALER IH SCH ×2 (09:43→22:18)
[2016-12-29] MEDS: NICOTINE 21 MG/24 HOURS TOPICAL PATCH TD SCH (09:43)
[2016-12-29] MEDS: ACETYLCYSTEINE 20% 200MG/ML 30 ML VIAL *FOR ORAL / INH USE ONLY PO SCH (09:45)
[2016-12-29] MEDS ORDERED: PT OWN MED DRAWER 7, Y5N ONE (10:50)
[2016-12-29] MEDS: hydrALAZINE HCL 10 MG TABLET PO SCH ×2 (10:52→22:19)
[2016-12-29] MEDS: BACITRACIN 30 GM TUBE TOPICAL OINTMENT TP SCH (10:53)
[2016-12-29] MEDS ORDERED: HEPARIN NA (PORCINE) 5,000 UNITS/ML 1ML VIAL ONE (12:04)
[2016-12-29] MEDS ORDERED: LIDOCAINE HCL 1%, 10 MG/ML (20ML VIAL) ONE (12:04)
[2016-12-29] MEDS ORDERED: MIDAZOLAM HCL 2 MG/2 ML SINGLE DOSE VIAL ONE (12:57)
[2016-12-29] MEDS ORDERED: ceFAZolin SODIUM 1 GM VIAL ONE (12:58)
[2016-12-29] MEDS ORDERED: ceFAZolin SODIUM 1 GM VIAL IVPB ONE (12:58)
--- NOTE | 2016-12-29 13:58 | PN ---
Progress Note (short form) - Note Progress Note: Vascular Surgery S/P angiogram LLE Pt has extensive disease due to diabetes. Has one vessel runoff via peroneal with reconstitition of Anterior tibial artery Good flow in foot. All ulcers should heal. No intervention needed. Santyl to all wounds daily. Isiah Carson DO
--- NOTE | 2016-12-29 14:03 | OP ---
Operative Note - Note: Operative Date: 12/29/16 Pre-Operative Diagnosis: Left foot ulcers Operation: Aortogram, LLE angiogram Post-Operative Diagnosis: Same as Pre-op Surgeon: Isiah Carson Anesthesia: Fractional Estimated Blood Loss (mls): 10
[2016-12-29] MEDS ORDERED: ONDANSETRON 4 MG/2 ML VIAL IVPB PRN (14:08)
[2016-12-29] MEDS ORDERED: POLYETHYLENE GLYCOL 3350 119 GM BTL PO PRN (14:08)
[2016-12-29] MEDS ORDERED: SODIUM CHLORIDE 1,000 ML IV SCH (14:08)
[2016-12-29] MEDS ORDERED: ACETAMINOPHEN 325 MG TABLET (FP) PO PRN (14:08)
--- NOTE | 2016-12-29 14:35 | PN ---
Progress Note, Physician Chief Complaint: S/p surgical Intervention and IV contrast study IV hydration given Renal functions slowly improving - Current Medication List Current Medications: Active Medications Acetaminophen (Tylenol -) 650 mg PO Q4H PRN PRN Reason: FEVER OR PAIN Acetylcysteine (Mucomyst 20 Oral / Inh Use Only*) 1,200 mg PO Q12H [facility] Stop: 12/29/16 22:31 Aclidinium [place] (Tudorza -) 1 puff IH BID [facility] Albuterol Sulfate (Ventolin 0.083% Nebulizer Soln -) 1 amp NEB QIDR [facility] Aspirin (Ecotrin -) 81 mg PO DAILY [facility] Atorvastatin Calcium (Lipitor -) 40 mg PO HS [facility] Bacitracin (Bacitracin -) 1 applic TP DAILY [facility] Budesonide/Formoterol Fumarate (Symbicort 160/4.5mcg -) 2 puff IH BID [facility] Clopidogrel Bisulfate (Plavix -) 75 mg PO DAILY [facility] Collagenase (Santyl -) 1 applic TP DAILY [facility] Docusate Sodium (Colace -) 100 mg PO BID [facility] Heparin Sodium (Porcine) (Heparin -) 5,000 unit SQ TID [facility] Hydralazine HCl (Apresoline -) 10 mg PO BID [facility] Metronidazole (Flagyl 500mg Premixed Ivpb -) 100 mls @ 100 mls/hr IVPB Q8H-IV [facility] Sodium Chloride (Normal Saline -) 1,000 mls @ 75 mls/hr IV ASDIR [facility] Stop: 12/29/16 22:29 Vancomycin HCl 1,250 mg/ (Dextrose) 250 mls @ 125 mls/hr IVPB DAILY@1300 [facility] PRN Reason: Protocol Insulin Aspart (Novolog Vial Sliding Scale -) 1 vial SQ ACHS [facility] PRN Reason: Protocol Insulin Detemir (Levemir Vial) 50 units SQ HS [facility] Insulin Detemir (Levemir Vial) 50 units SQ AM [facility] Metoprolol Succinate (Toprol Xl -) 50 mg PO DAILY [facility] Morphine Sulfate (Ms Contin -) 60 mg PO TID [facility] Nicotine (Nicoderm Patch -) 21 mg TD DAILY [facility] Ondansetron HCl (Zofran Injection) 4 mg IVPB Q6H PRN PRN Reason: NAUSEA Oxycodone HCl (Roxicodone -) 30 mg PO Q4H PRN PRN Reason: PAIN Polyethylene Glycol (Miralax (For Daily Use) -) 17 gm PO BID PRN PRN Reason: CONSTIPATION Pregabalin (Lyrica -) 25 mg PO BID [facility] Temazepam (Restoril -) 15 mg PO HS [facility] - Objective Vital Signs: Vital Signs Temperature 98.5 F 12/29/16 08:37 Pulse Rate 64 12/29/16 08:37 Respiratory Rate 20 12/29/16 08:37 Blood Pressure 161/87 12/29/16 08:37 O2 Sat by Pulse Oximetry (%) 99 12/29/16 09:00 Constitutional: Yes: Well Nourished, No Distress Cardiovascular: Yes: S1, S2 Respiratory: Yes: CTA Bilaterally Gastrointestinal: Yes: Normal Bowel Sounds Labs: CBC, BMP 12/28/16 06:00 12/29/16 06:00 Problem List - Problems (1) Diabetic foot ulcer Code(s): E11.621 - TYPE 2 DIABETES MELLITUS WITH FOOT ULCER L97.509 - NON-PRESSURE CHRONIC ULCER OTH PRT UNSP FOOT W UNSP SEVERITY (2) Hypokalemia Code(s): E87.6 - HYPOKALEMIA (3) Type 2 diabetes mellitus with diabetic autonomic (poly)neuropathy Code(s): E11.43 - TYPE 2 DIABETES W DIABETIC AUTONOMIC (POLY)NEUROPATHY (4) Uremic encephalopathy Code(s): G93.41 - METABOLIC ENCEPHALOPATHY N19 - UNSPECIFIED KIDNEY FAILURE (5) Abnormal chest x-ray Code(s): R93.8 - ABNORMAL FINDINGS ON DIAGNOSTIC IMAGING OF BODY STRUCTURES (6) CAD (coronary artery disease) Code(s): I25.10 - ATHSCL HEART DISEASE OF [place] CORONARY ARTERY W/O ANG PCTRS Qualifiers: Coronary Disease-Associated Artery/Lesion type: unspecified vessel or lesion type [place] vs. transplanted heart: [place] heart Associated angina: with stable angina Qualified Code(s): I25.119 - Atherosclerotic heart disease of [place] coronary artery with unspecified angina pectoris (7) CKD (chronic kidney disease) Code(s): N18.9 - CHRONIC KIDNEY DISEASE, UNSPECIFIED (8) Diabetes mellitus Code(s): E11.9 - TYPE 2 DIABETES MELLITUS WITHOUT COMPLICATIONS Qualifiers: Diabetes mellitus type: type 1 Diabetes mellitus complication status: with hyperglycemia Qualified Code(s): E10.65 - Type 1 diabetes mellitus with hyperglycemia Assessment/Plan 66 y/o male with severe peripheral vascular disease from Diabetes mellitus. Acute azotemia improving. Has underlying CKD. Will monitor the renal functions in the setting of IV contrast study. Thank you. Will follow up with you. Sonia Jones MD
--- NOTE | 2016-12-29 15:00 | PN ---
Progress Note, Physician History of Present Illness: patient seen and examined in PACU s/p LLE Angiogram for non healing ulcer - Current Medication List Current Medications: Active Medications Acetaminophen (Tylenol -) 650 mg PO Q4H PRN PRN Reason: FEVER OR PAIN Acetylcysteine (Mucomyst 20 Oral / Inh Use Only*) 1,200 mg PO Q12H [facility] Stop: 12/29/16 22:31 Aclidinium [place] (Tudorza -) 1 puff IH BID [facility] Albuterol Sulfate (Ventolin 0.083% Nebulizer Soln -) 1 amp NEB QIDR [facility] Aspirin (Ecotrin -) 81 mg PO DAILY [facility] Atorvastatin Calcium (Lipitor -) 40 mg PO HS [facility] Bacitracin (Bacitracin -) 1 applic TP DAILY [facility] Budesonide/Formoterol Fumarate (Symbicort 160/4.5mcg -) 2 puff IH BID [facility] Clopidogrel Bisulfate (Plavix -) 75 mg PO DAILY [facility] Collagenase (Santyl -) 1 applic TP DAILY [facility] Docusate Sodium (Colace -) 100 mg PO BID [facility] Heparin Sodium (Porcine) (Heparin -) 5,000 unit SQ TID [facility] Hydralazine HCl (Apresoline -) 10 mg PO BID [facility] Metronidazole (Flagyl 500mg Premixed Ivpb -) 100 mls @ 100 mls/hr IVPB Q8H-IV [facility] Sodium Chloride (Normal Saline -) 1,000 mls @ 75 mls/hr IV ASDIR [facility] Stop: 12/29/16 22:29 Vancomycin HCl 1,250 mg/ (Dextrose) 250 mls @ 125 mls/hr IVPB DAILY@1600 [facility] PRN Reason: Protocol Insulin Aspart (Novolog Vial Sliding Scale -) 1 vial SQ ACHS [facility] PRN Reason: Protocol Insulin Detemir (Levemir Vial) 50 units SQ HS [facility] Insulin Detemir (Levemir Vial) 50 units SQ AM [facility] Metoprolol Succinate (Toprol Xl -) 50 mg PO DAILY [facility] Morphine Sulfate (Ms Contin -) 60 mg PO TID [facility] Nicotine (Nicoderm Patch -) 21 mg TD DAILY [facility] Ondansetron HCl (Zofran Injection) 4 mg IVPB Q6H PRN PRN Reason: NAUSEA Oxycodone HCl (Roxicodone -) 30 mg PO Q4H PRN PRN Reason: PAIN Polyethylene Glycol (Miralax (For Daily Use) -) 17 gm PO BID PRN PRN Reason: CONSTIPATION Pregabalin (Lyrica -) 25 mg PO BID [facility] Temazepam (Restoril -) 15 mg PO HS [facility] - Objective Vital Signs: Vital Signs Temperature 98.4 F 12/29/16 13:33 Pulse Rate 67 12/29/16 13:33 Respiratory Rate 16 12/29/16 13:33 Blood Pressure 135/74 12/29/16 13:33 O2 Sat by Pulse Oximetry (%) 98 12/29/16 13:33 Laboratory Last Values WBC 13.6 K/mm3 (4.0-10.0) H 12/28/16 06:00 RBC 4.79 M/mm3 (4.00-5.60) 12/28/16 06:00 Hgb 13.8 GM/dL (11.7-16.9) 12/28/16 06:00 Hct 42.0 % (35.4-49) 12/28/16 06:00 MCV 87.8 fl (80-96) 12/28/16 06:00 MCHC 32.8 g/dl (32.0-35.9) 12/28/16 06:00 RDW 14.3 % (11.9-15.9) 12/28/16 06:00 Plt Count 191 K/MM3 (134-434) 12/28/16 06:00 MPV 9.7 fl (7.5-11.1) 12/28/16 06:00 Neutrophils % 72.4 % (42.8-82.8) 12/28/16 06:00 Lymphocytes % 17.8 % (8-40) D 12/28/16 06:00 Monocytes % 6.8 % (3.8-10.2) 12/28/16 06:00 Eosinophils % 2.3 % (0-4.5) D 12/28/16 06:00 Basophils % 0.7 % (0-2.0) 12/28/16 06:00 Band Neutrophils 0.0 % (0-10) D 12/26/16 12:25 Differential Comment Manual diff done 12/26/16 12:25 Platelet Estimate Adequate (NORMAL) 12/26/16 12:25 VBG pH 7.38 (7.32-7.42) 12/26/16 12:00 POC VBG pCO2 51.2 mmHg (38-52) 12/26/16 12:00 POC VBG pO2 27.7 mmHg (28-48) L 12/26/16 12:00 Mixed VBG HCO3 29.8 meq/L (19-25) H 12/26/16 12:00 Sodium 144 mmol/L (136-145) 12/29/16 06:00 Potassium 3.7 mmol/L (3.5-5.1) 12/29/16 06:00 Chloride 106 mmol/L (98-107) 12/29/16 06:00 Carbon Dioxide 30 mmol/L (21-32) 12/29/16 06:00 Anion Gap 8 (8-16) 12/29/16 06:00 BUN 28 mg/dL (7-18) H D 12/29/16 06:00 Creatinine 1.2 mg/dL (0.7-1.3) 12/29/16 06:00 Creat Clearance w eGFR > 60 (>60) 12/29/16 06:00 POC Glucometer 86 UNITS (()) 12/29/16 11:58 Random Glucose 162 mg/dL (74-106) H 12/29/16 06:00 Hemoglobin A1c % 10.8 % (4.8-6.0) H D 12/28/16 13:00 Calcium 8.6 mg/dL (8.5-10.1) 12/29/16 06:00 Phosphorus 2.2 mg/dL (2.5-4.9) L 12/29/16 06:00 Magnesium 1.7 mg/dL (1.8-2.4) L 12/29/16 06:00 Total Bilirubin 0.4 mg/dL (0.2-1.0) 12/29/16 06:00 AST 19 U/L (15-37) D 12/29/16 06:00 ALT 26 U/L (12-78) 12/29/16 06:00 Alkaline Phosphatase 135 U/L (45-117) H 12/29/16 06:00 Creatine Kinase 77 IU/L (39-308) 12/26/16 12:25 Troponin I 0.02 ng/ml (0.00-0.05) D 12/26/16 12:25 Total Protein 5.9 g/dl (6.4-8.2) L 12/29/16 06:00 Albumin 3.1 g/dl (3.4-5.0) L 12/29/16 06:00 Urine Color Straw 12/27/16 08:00 Urine Appearance Clear 12/27/16 08:00 Urine pH 6.0 (5.0-8.0) 12/27/16 08:00 Ur Specific [place] 1.010 (1.001-1.035) 12/27/16 08:00 Urine Protein Negative (NEGATIVE) 12/27/16 08:00 Urine Glucose (UA) Negative (NEGATIVE) 12/27/16 08:00 Urine Ketones Negative (NEGATIVE) 12/27/16 08:00 Urine Blood Negative (NEGATIVE) 12/27/16 08:00 Urine Nitrite Negative (NEGATIVE) 12/27/16 08:00 Urine Bilirubin Negative (NEGATIVE) 12/27/16 08:00 Urine Urobilinogen Negative E.U./dl (0.2-1.0) 12/27/16 08:00 Ur Leukocyte Esterase Negative (NEGATIVE) 12/27/16 08:00 U Random Total Protein 21 mg/dl (5-11.9) H 12/27/16 08:00 Ur Random Sodium 41 MMOL/L 12/27/16 08:00 Ur Random Potassium 9.8 MMOL/L 12/27/16 08:00 Ur Random Chloride 31 MMOL/L 12/27/16 08:00 Ur Random Urea Nitrogn 699 mg/dL 12/27/16 08:00 Urine Creatinine 49.5 mg/dL 12/27/16 08:00 Acetone, Qual Negative (NEGATIVE) 12/26/16 12:25 Microbiology 12/26/16 16:42 Foot - Left Dorsum Gram Stain - Final 12/26/16 16:42 Foot - Left Dorsum Wound Culture - Final Staphylococcus Intermedius Staphylococcus Intermedius#2 12/26/16 19:15 Blood - Peripheral Venous Blood Culture - Preliminary NO GROWTH OBTAINED AFTER 48 HOURS, INCUBATION TO CONTINUE FOR 3 DAYS. 12/26/16 19:15 Blood - Peripheral Venous Blood Culture - Preliminary NO GROWTH OBTAINED AFTER 48 HOURS, INCUBATION TO CONTINUE FOR 3 DAYS. 12/26/16 16:42 Urine - Urine Clean Catch Urine Culture - Final NO GROWTH OBTAINED Constitutional: Yes: Well Nourished, No Distress HENT: Yes: WNL, Atraumatic Neck: Yes: WNL, Supple Cardiovascular: Yes: S1, S2 Respiratory: Yes: WNL, Regular, CTA Bilaterally Gastrointestinal: Yes: Soft. No: Tenderness Extremities: Yes: (left 2nd toe with dry necrotic small ulcer red medial foot open draining wound Blister toe right foot) Labs: CBC, BMP 12/28/16 06:00 12/29/16 06:00 Problem List - Problems (1) Fall Code(s): W19.XXXA - UNSPECIFIED FALL, INITIAL ENCOUNTER Qualifiers: Encounter type: initial encounter Qualified Code(s): W19.XXXA - Unspecified fall, initial encounter (2) Hypokalemia Code(s): E87.6 - HYPOKALEMIA (3) Back pain Code(s): M54.9 - DORSALGIA, UNSPECIFIED (4) CAD (coronary artery disease) Code(s): I25.10 - ATHSCL HEART DISEASE OF [place] CORONARY ARTERY W/O ANG PCTRS Qualifiers: Coronary Disease-Associated Artery/Lesion type: unspecified vessel or lesion type [place] vs. transplanted heart: [place] heart Associated angina: with stable angina Qualified Code(s): I25.119 - Atherosclerotic heart disease of [place] coronary artery with unspecified angina pectoris (5) CKD (chronic kidney disease) Code(s): N18.9 - CHRONIC KIDNEY DISEASE, UNSPECIFIED (6) COPD (chronic obstructive pulmonary disease) Code(s): J44.9 - CHRONIC OBSTRUCTIVE PULMONARY DISEASE, UNSPECIFIED Qualifiers : COPD type: unspecified COPD Qualified Code(s): J44.9 - Chronic obstructive pulmonary disease, unspecified (7) Cellulitis Code(s): L03.90 - CELLULITIS, UNSPECIFIED Qualifiers: Site of cellulitis: extremity Site of cellulitis of extremity: lower extremity Laterality: left Qualified Code(s): L03.116 - Cellulitis of left lower limb (8) Chronic pain Code(s): G89.29 - OTHER CHRONIC PAIN (9) Congestive heart failure (CHF) Code(s): I50.9 - HEART FAILURE, UNSPECIFIED Qualifiers: Congestive heart failure chronicity: chronic (10) Hyperlipidemia Code(s): E78.5 - HYPERLIPIDEMIA, UNSPECIFIED (11) Hypertension Code(s): I10 - ESSENTIAL (PRIMARY) HYPERTENSION (12) Leukocytosis Code(s): D72.829 - ELEVATED WHITE BLOOD CELL COUNT, UNSPECIFIED Qualifiers: Leukocytosis type: other Qualified Code(s): D72.828 - Other elevated white blood cell count (13) Renal failure (ARF), acute on chronic Code(s): N17.9 - ACUTE KIDNEY FAILURE, UNSPECIFIED N18.9 - CHRONIC KIDNEY DISEASE, UNSPECIFIED (14) Tobacco abuse Code(s): Z72.0 - TOBACCO USE (15) Diabetic foot ulcer Code(s): E11.621 - TYPE 2 DIABETES MELLITUS WITH FOOT ULCER L97.509 - NON-PRESSURE CHRONIC ULCER OTH PRT UNSP FOOT W UNSP SEVERITY Assessment/Plan 66M with multiple medical problems s/p mechanical fall found to have leukocytosis likely secondary to bilateral diabetic foot ulcers s/p LLE angiogram found to have adequate flow for healing collagenase per vascular sx to wounds with local wound care will need outpatient follow up with podiatry and vascular sx day 3 ABx cefazolin stopped day 2 vancomycin and flagyl trend CBC and BMP pain control ordered labs for tomorrow CBC CRP and ESR vanco trough before 4th dose ordered left foot XR O2 PRN DVT PPx Will follow thank you for this consult and allowing us to participate in the care of this patient
[2016-12-29] MEDS: VANCOMYCIN 1,250 MG in DEXTROSE 5%-WATER - 250 ML IVPB SCH (15:27)
[2016-12-29] MEDS ORDERED: VANCOMYCIN 1,250 MG in DEXTROSE 5%-WATER - 250 ML IVPB SCH (16:00)
[2016-12-29] MEDS: COLLAGENASE CLOSTRIDIUM HIST. 30 GRAMS TUBE TP SCH (16:30)
--- NOTE | 2016-12-29 16:47 | PN ---
Progress Note, Physician Chief Complaint: Mr Scott continues to complain of pain, saying he needs his pain medications increased. No cp, sob, n/v. - Current Medication List Current Medications: Active Medications Acetaminophen (Tylenol -) 650 mg PO Q4H PRN PRN Reason: FEVER OR PAIN Acetylcysteine (Mucomyst 20 Oral / Inh Use Only*) 1,200 mg PO Q12H REPLACED BY [facility] Aclidinium [place] (Tudorza -) 1 puff IH BID REPLACED BY [facility] Albuterol Sulfate (Ventolin 0.083% Nebulizer Soln -) 1 amp NEB QIDR REPLACED BY [facility] Aspirin (Ecotrin -) 81 mg PO DAILY [facility] Atorvastatin Calcium (Lipitor -) 40 mg PO HS REPLAC[facility] BY [facility] Bacitracin (Bacitracin -) 1 applic TP DAILY [facility] Budesonide/Formoterol Fumarate (Symbicort 160/4.5mcg -) 2 puff IH BID REPLACED BY [facility] Clopidogrel Bisulfate (Plavix -) 75 mg PO DAILY [facility] Collagenase (Santyl -) 1 applic TP DAILY [facility] Last Admin: 12/29/16 16:30 Dose: 1 applic Docusate Sodium (Colace -) 100 mg PO BID REPL[facility]ED BY [facility] Heparin Sodium (Porcine) (Heparin -) 5,000 unit SQ TID [facility]PLACED BY [facility] Hydralazine HCl (Apresoline -) 10 mg PO BID [facility]PL[facility] BY [facility] Metronidazole (Flagyl 500mg Premixed Ivpb -) 100 mls @ 100 mls/hr IVPB Q8H-IV [facility] Sodium Chloride (Normal Saline -) 1,000 mls @ 75 mls/hr IV ASDIR REPLACED BY [facility] Stop: 12/29/16 22:29 Last Admin: 12/29/16 16:28 Dose: 75 mls/hr Vancomycin HCl 1,250 mg/ (Dextrose) 250 mls @ 125 mls/hr IVPB DAILY@1600 [facility] PRN Reason: Protocol Insulin Aspart (Novolog Vial Sliding Scale -) 1 vial SQ ACHS [facility] PRN Reason: Protocol Insulin Detemir (Levemir Vial) 50 units SQ HS REPLACED BY [facility] Insulin Detemir (Levemir Vial) 50 units SQ AM REPLACED BY [facility] Metoprolol Succinate (Toprol Xl -) 50 mg PO DAILY [facility] Morphine Sulfate (Ms Contin -) 60 mg PO TID REPLAC[facility] BY [facility] Nicotine (Nicoderm Patch -) 21 mg TD DAILY [facility]PLAC[facility] BY [facility] Ondansetron HCl (Zofran Injection) 4 mg IVPB Q6H PRN PRN Reason: NAUSEA Oxycodone HCl (Roxicodone -) 30 mg PO Q4H PRN PRN Reason: PAIN Last Admin: 12/29/16 16:28 Dose: 30 mg Polyethylene Glycol (Miralax (For Daily Use) -) 17 gm PO BID PRN PRN Reason: CONSTIPATION Pregabalin (Lyrica -) 25 mg PO BID [facility] Temazepam (Restoril -) 30 mg PO HS [facility] - Objective Vital Signs: Vital Signs Temperature 98.2 F 12/29/16 15:12 Pulse Rate 65 12/29/16 15:12 Respiratory Rate 16 12/29/16 15:12 Blood Pressure 126/70 12/29/16 15:12 O2 Sat by Pulse Oximetry (%) 98 12/29/16 14:20 Constitutional: Yes: Well Nourished, No Distress, Calm Cardiovascular: Yes: Regular Rate and Rhythm. No: Gallop, Murmur, Rub Respiratory: Yes: Regular, CTA Bilaterally. No: Rales, Rhonchi, Wheezes Gastrointestinal: Yes: Normal Bowel Sounds, Soft. No: Distention, Tenderness Extremities: Yes: Erythema Edema: No Labs: CBC, BMP 12/28/16 06:00 12/29/16 06:00 Problem List - Problems (1) Uremic encephalopathy Code(s): G93.41 - METABOLIC ENCEPHALOPATHY N19 - UNSPECIFIED KIDNEY FAILURE (2) Renal failure (ARF), acute on chronic Code(s): N17.9 - ACUTE KIDNEY FAILURE, UNSPECIFIED N18.9 - CHRONIC KIDNEY DISEASE, UNSPECIFIED (3) Cellulitis Code(s): L03.90 - CELLULITIS, UNSPECIFIED Qualifiers: Site of cellulitis: extremity Site of cellulitis of extremity: lower extremity Laterality: left Qualified Code(s): L03.116 - Cellulitis of left lower limb (4) Diabetes mellitus Code(s): E11.9 - TYPE 2 DIABETES MELLITUS WITHOUT COMPLICATIONS Qualifiers: Diabetes mellitus type: type 1 Diabetes mellitus complication status: with hyperglycemia Qualified Code(s): E10.65 - Type 1 diabetes mellitus with hyperglycemia (5) Hypomagnesemia Code(s): E83.42 - HYPOMAGNESEMIA (6) Hypertension Code(s): I10 - ESSENTIAL (PRIMARY) HYPERTENSION (7) Hypokalemia Code(s): E87.6 - HYPOKALEMIA (8) CAD (coronary artery disease) Code(s): I25.10 - ATHSCL HEART DISEASE OF [place] CORONARY ARTERY W/O ANG PCTRS Qualifiers: Coronary Disease-Associated Artery/Lesion type: unspecified vessel or lesion type [place] vs. transplanted heart: [place] heart Associated angina: with stable angina Qualified Code(s): I25.119 - Atherosclerotic heart disease of [place] coronary artery with unspecified angina pectoris (9) COPD (chronic obstructive pulmonary disease) Code(s): J44.9 - CHRONIC OBSTRUCTIVE PULMONARY DISEASE, UNSPECIFIED Qualifiers : COPD type: unspecified COPD Qualified Code(s): J44.9 - Chronic obstructive pulmonary disease, unspecified (10) Chronic pain Code(s): G89.29 - OTHER CHRONIC PAIN (11) Congestive heart failure (CHF) Code(s): I50.9 - HEART FAILURE, UNSPECIFIED Qualifiers: Congestive heart failure chronicity: chronic (12) Tobacco abuse Code(s): Z72.0 - TOBACCO USE (13) Fall Code(s): W19.XXXA - UNSPECIFIED FALL, INITIAL ENCOUNTER Qualifiers: Encounter type: initial encounter Qualified Code(s): W19.XXXA - Unspecified fall, initial encounter Assessment/Plan (1) Uremic encephalopathy Assessment/Plan: -resolved Code(s): G93.41 - METABOLIC ENCEPHALOPATHY N19 - UNSPECIFIED KIDNEY FAILURE (2) Renal failure (ARF), acute on chronic Assessment/Plan: -nephrology following -continues to improve -close monitoring since received contrast Code(s): N17.9 - ACUTE KIDNEY FAILURE, UNSPECIFIED N18.9 - CHRONIC KIDNEY DISEASE, UNSPECIFIED (3) Cellulitis Assessment/Plan: -with wounds on BLE -growing staph intermedius -continue vancomycin and flagyl per ID Code(s): L03.90 - CELLULITIS, UNSPECIFIED Qualifiers: Site of cellulitis: extremity Site of cellulitis of extremity: lower extremity Laterality: left Qualified Code(s): L03.116 - Cellulitis of left lower limb (4) Diabetes mellitus Assessment/Plan: -appreciate endocrinology assistance -SSI now more liberal -continue regimen per endocrinology Code(s): E11.9 - TYPE 2 DIABETES MELLITUS WITHOUT COMPLICATIONS Qualifiers: Diabetes mellitus type: type 1 Diabetes mellitus complication status: with hyperglycemia Qualified Code(s): E10.65 - Type 1 diabetes mellitus with hyperglycemia (5) Hypophosphatemia Assessment/Plan: -replace per nephrology Code(s): E83.42 - HYPOMAGNESEMIA (6) Hypertension Assessment/Plan: -controlled -continue toprol xl and hydralazine Code(s): I10 - ESSENTIAL (PRIMARY) HYPERTENSION (7) Hypokalemia Assessment/Plan: -replaced Code(s): E87.6 - HYPOKALEMIA (8) CAD (coronary artery disease) Assessment/Plan: -without chest pain -cardiac enzymes negative -continue home regimen Code(s): I25.10 - ATHSCL HEART DISEASE OF [place] CORONARY ARTERY W/O ANG PCTRS Qualifiers: Coronary Disease-Associated Artery/Lesion type: unspecified vessel or lesion type [place] vs. transplanted heart: [place] heart Associated angina: with stable angina Qualified Code(s): I25.119 - Atherosclerotic heart disease of [place] coronary artery with unspecified angina pectoris (9) COPD (chronic obstructive pulmonary disease) Assessment/Plan: -stable -continue home regimen Code(s): J44.9 - CHRONIC OBSTRUCTIVE PULMONARY DISEASE, UNSPECIFIED Qualifiers : COPD type: unspecified COPD Qualified Code(s): J44.9 - Chronic obstructive pulmonary disease, unspecified (10) Chronic pain Assessment/Plan: -continue home regimen of MS Contin, pregabalin, and prn oxycodone -will not increase narcotic regimen Code(s): G89.29 - OTHER CHRONIC PAIN (11) Congestive heart failure (CHF) Assessment/Plan: -not in exacerbation -hold diuretics currently -agree with stopping IVF Code(s): I50.9 - HEART FAILURE, UNSPECIFIED Qualifiers: Congestive heart failure chronicity: chronic (12) Tobacco abuse Assessment/Plan: -nicotine patch Code(s): Z72.0 - TOBACCO USE (13) Fall Assessment/Plan: -no fractures per x-ray -PT consulted and following Code(s): W19.XXXA - UNSPECIFIED FALL, INITIAL ENCOUNTER Qualifiers: Encounter type: initial encounter Qualified Code(s): W19.XXXA - Unspecified fall, initial encounter
--- NOTE | 2016-12-29 16:55 | PN ---
Teaching Attending Note Name of Resident: Henrry Rivas ATTENDING PHYSICIAN STATEMENT I saw and evaluated the patient. I reviewed the resident's note and discussed the case with the resident. I agree with the resident's findings and plan as documented. SUBJECTIVE: OBJECTIVE: ASSESSMENT AND PLAN: Pt seen with Dr. Mathew Pagan 2nd toe still slightly swollen, red Dorsal ulcer no drainage S/P Angio Obtain XR of toe, ESR / CRP Wound c/s grew S. intermedius Continue cefazolin/ flagyl
[2016-12-29] MEDS: CEFAZOLIN (PRE-DOCKED) 50 ML IVPB SCH (17:41)
--- NOTE | 2016-12-29 20:36 | OP ---
DATE OF OPERATION: 12/29/2016 PREOPERATIVE DIAGNOSIS: Left foot diabetic foot ulcers. POSTOPERATIVE DIAGNOSIS: Left foot diabetic foot ulcers. PROCEDURE: Aortogram, left lower extremity angiogram. SURGEON: Isiah Ramey DO ANESTHESIA: Fractional. BLOOD LOSS: 10 mL. The patient is a 66-year-old male who comes in with bilateral feet ulcers. On his left foot, on his inner foot, he has a diabetic foot ulcer there that he has had for over 2 weeks. It was decided that he would need a diagnostic angiogram. The patient was consented for the procedure, understanding all risks, benefits, alternatives. He was then taken to the operating room. Once in the operating room, he was laid on the operating table in supine manner. The area of the right and left groin were prepped and draped in a sterile surgical manner. We then went ahead and placed 10 mL lidocaine 1% over the right common femoral artery. We then used our micropuncture needle and punctured the right common femoral artery. Micropuncture wire was inserted, micropuncture sheath was inserted, and a traditional 5-Trinidadian sheath was inserted. We then placed 0.035 floppy guidewire up into the aorta, followed by an Omni Flush catheter. We then shot an aortogram, showing that the aorta and the iliac arteries were without any disease. We then placed a 0.035 stiff guidewire down into the left common femoral artery and our Omni Flush catheter followed. We then shot an angiogram of the left lower extremity, showing that the common femoral artery, the profunda, the SFA, are all patent. Popliteal artery is patent. Below knee popliteal artery is patent. The anterior tibial artery was opened at its origin and then is occluded and reconstitutes distally into the foot from the peroneal artery. The peroneal artery is the main runoff going into the foot. The posterior tibial artery is not present. At this point we decided that there is no real intervention that can be performed, there is no bypassable disease so it was decided that, and looking at the angiogram of the left foot, there is adequate circulation to heal his ulcers. At this point we brought our Omni Flush sheath out, 5-Trinidadian sheath was removed, pressure was held on the right groin for 5 minutes. After there was no bleeding, the area was wet and dried and Dermabond was placed. Patient tolerated procedure, no complication. Patient transferred to PACU in stable condition. ISIAH RAMEY DO NP/[id number]
[2016-12-29] MEDS ORDERED: INSULIN DETEMIR 100 UNITS/ML MDV SQ SCH ×2 (22:00→22:25)
[2016-12-29] MEDS ORDERED: TEMAZEPAM 15 MG CAPSULE PO SCH ×2 (22:00)
[2016-12-29] MEDS ORDERED: ATORVASTATIN CA 40 MG TABLET (FP) PO SCH (22:00)
--- NOTE | 2016-12-29 22:21 | PN ---
Progress Note (short form) - Note Progress Note: improving glucose levels,yet still with neuropathic pain Abnormal Lab Results 12/28/16 12/29/16 13:00 06:00 BUN 28 H D Random Glucose 162 H Hemoglobin A1c % 10.8 H D Phosphorus 2.2 L Magnesium 1.7 L Alkaline Phosphatase 135 H Total Protein 5.9 L Albumin 3.1 L Current Active Problems Chest pain (Acute) Diabetic foot ulcer (Acute) Fall (Acute) Hypokalemia (Acute) Type 2 diabetes mellitus with diabetic autonomic (poly)neuropathy (Acute) Uremic encephalopathy (Acute) Current Medications Generic Name Dose Route Start Last Admin Trade Name Freq PRN Reason Stop Dose Admin Acetaminophen 650 mg 12/29/16 14:08 Tylenol - PO Q4H PRN FEVER OR PAIN Acetylcysteine 1,200 mg 12/29/16 22:30 Mucomyst 20 Oral / Inh Use Only* PO Q12H [facility] Aclidinium [place] 1 puff 12/29/16 22:00 Tudorza - IH BID [facility] Albuterol Sulfate 1 amp 12/29/16 18:00 12/29/16 17:16 Ventolin 0.083% Nebulizer Soln - NEB Not Given QIDR [facility] Aspirin 81 mg 12/30/16 10:00 Ecotrin - PO DAILY [facility] Atorvastatin Calcium 40 mg 12/29/16 22:00 Lipitor - PO HS [facility] Bacitracin 1 applic 12/30/16 10:00 Bacitracin - TP DAILY [facility] Budesonide/Formoterol Fumarate 2 puff 12/29/16 22:00 Symbicort 160/4.5mcg - IH BID [facility] Clopidogrel Bisulfate 75 mg 12/30/16 10:00 Plavix - PO DAILY [facility] Collagenase 1 applic 12/29/16 14:15 12/29/16 16:30 Santyl - TP 1 applic DAILY [facility] Administration Docusate Sodium 100 mg 12/29/16 22:00 Colace - PO BID [facility] Heparin Sodium (Porcine) 5,000 unit 12/29/16 22:00 Heparin - SQ TID [facility] Hydralazine HCl 10 mg 12/29/16 22:00 Apresoline - PO BID [facility] Metronidazole 100 mls @ 100 mls/hr 12/29/16 18:00 12/29/16 17:41 Flagyl 500mg Premixed Ivpb - IVPB 100 mls/hr Q8H-IV [facility] Administration Sodium Chloride 1,000 mls @ 75 mls/hr 12/29/16 14:08 12/29/16 16:28 Normal Saline - IV 12/29/16 22:29 75 mls/hr ASDIR [facility] Administration Cefazolin Sodium 50 mls @ 100 mls/hr 12/29/16 18:00 12/29/16 17:41 Ancef 1gm Ivpb (Pre-Docked) IVPB 100 mls/hr Q8H-IV [facility] Administration Insulin Aspart 1 vial 12/29/16 16:30 12/29/16 16:51 Novolog Vial Sliding Scale - SQ 7 units ACHS [facility] Administration Protocol Insulin Detemir 50 units 12/29/16 22:00 Levemir Vial SQ HS [facility] Insulin Detemir 50 units 12/30/16 07:00 Levemir Vial SQ AM [facility] Metoprolol Succinate 50 mg 12/30/16 10:00 Toprol Xl - PO DAILY [facility] Morphine Sulfate 60 mg 12/29/16 22:00 Ms Contin - PO TID [facility] Nicotine 21 mg 12/30/16 10:00 Nicoderm Patch - TD DAILY [facility] Ondansetron HCl 4 mg 12/29/16 14:08 Zofran Injection IVPB Q6H PRN [facility] Oxycodone HCl 30 mg 12/29/16 14:08 12/29/16 20:23 Roxicodone - PO 30 mg Q4H PRN Administration PAIN Polyethylene Glycol 17 gm 12/29/16 14:08 Miralax (For Daily Use) - PO BID PRN CONSTIPATION Pregabalin 25 mg 12/29/16 22:00 Lyrica - PO BID [facility] Temazepam 30 mg 12/29/16 22:00 Restoril - PO HS [facility] plan: dec levemir 45 units am levemir 40 units hs continue with bgm qid novolog coverage [facility] Laboratory Tests 12/28/16 13:00 Hemoglobin A1c % 10.8 H D Problem List - Problems (1) Diabetic foot ulcer Code(s): E11.621 - TYPE 2 DIABETES MELLITUS WITH FOOT ULCER L97.509 - NON-PRESSURE CHRONIC ULCER OTH PRT UNSP FOOT W UNSP SEVERITY (2) Type 2 diabetes mellitus with diabetic autonomic (poly)neuropathy Code(s): E11.43 - TYPE 2 DIABETES W DIABETIC AUTONOMIC (POLY)NEUROPATHY
[2016-12-30] MEDS: CEFAZOLIN (PRE-DOCKED) 50 ML IVPB SCH ×2 (01:19→09:28)
[2016-12-30] MEDS: METRONIDAZOLE 500 MG PREMIXED 100 ML IVPB SCH (01:49)
[2016-12-30] MEDS: morphine SO4 SUSTAINED ACTING 30 MG TABLET.SA PO SCH (06:24)
[2016-12-30] MEDS: HEPARIN NA (PORCINE) 5,000 UNITS/ML 1ML VIAL SQ SCH (06:29)
[2016-12-30] MEDS ORDERED: INSULIN (NOVOLOG) ASPART 100 UNITS/ML 10ML VIAL ONE (06:53)
[2016-12-30] MEDS: ALBUTEROL SO4 0.083% IH SOL 2.5 MG/3 ML VIAL.NEB. NEB SCH (06:56)
[2016-12-30] MEDS ORDERED: INSULIN DETEMIR 100 UNITS/ML MDV SQ SCH ×2 (07:00)
[2016-12-30] MEDS: INSULIN SLIDING SCALE (NOVOLOG) 1 VIAL SQ SCH (07:01)
[2016-12-30] MEDS: oxyCODONE HCL 5 MG TABLET PO PRN (07:38)
[2016-12-30] MEDS: ACETYLCYSTEINE 20% 200MG/ML 4 ML VIAL *FOR ORAL / INH USE ONLY PO SCH ×2 (07:49→09:30)
[2016-12-30 08:03] LABS: MCHC 32.7 g/dl (32.0-35.9); MEAN CELL VOLUME 88.5 fl (80-96); MEAN PLT VOLUME 9.8 fl (7.5-11.1); PLATELET COUNT 191 K/MM3 (134-434); RDW 14.6 % (11.9-15.9); WHITE BLOOD COUNT 15.8 K/mm3 (4.0-10.0)
[2016-12-30 08:23] LABS: CALCIUM 8.5 mg/dL (8.5-10.1)
[2016-12-30 08:28] LABS: ALBUMIN 3.3 g/dl (3.4-5.0); BILIRUBIN,TOTAL 0.7 mg/dL (0.2-1.0); C-REACTIVE PROTEIN 2.1 MG/DL (0.00-0.3); CREATININE 1.3 mg/dL (0.7-1.3); TOT PROT 5.8 g/dl (6.4-8.2)
[2016-12-30] MEDS ORDERED: PT OWN MED DRAWER 7, Y5N ONE (09:18)
[2016-12-30] MEDS: PREGABALIN 25 MG CAPSULE PO SCH (09:28)
[2016-12-30] MEDS: DOCUSATE SODIUM 100 MG CAPSULE (FP) PO SCH (09:28)
[2016-12-30] MEDS: hydrALAZINE HCL 10 MG TABLET PO SCH (09:29)
[2016-12-30] MEDS: BUDESONIDE/FORMETEROL FUMARATE 160/4.5 mcg INHALER IH SCH (09:30)
[2016-12-30] MEDS: COLLAGENASE CLOSTRIDIUM HIST. 30 GRAMS TUBE TP SCH (09:31)
[2016-12-30] MEDS: ACLIDINIUM BROMIDE 400 MCG/INH AERO.POWD IH SCH (09:31)
[2016-12-30] MEDS ORDERED: ASPIRIN COATED 81 MG TABLET.EC PO SCH (10:00)
[2016-12-30] MEDS ORDERED: BACITRACIN 30 GM TUBE TOPICAL OINTMENT TP SCH (10:00)
[2016-12-30] MEDS ORDERED: CLOPIDOGREL BISULFATE 75 MG TABLET (FP) PO SCH (10:00)
[2016-12-30] MEDS ORDERED: NICOTINE 21 MG/24 HOURS TOPICAL PATCH TD SCH (10:00)
[2016-12-30] MEDS ORDERED: METOPROLOL SUCCINATE 50 MG TAB.SR.24H (FP) PO SCH (10:00)
[2016-12-30 10:35] LABS: ERYTHROCYTE SEDIMENTATION RATE 39 mm/hr (0-20)
[2016-12-30 11:28] VITALS: BP 135/94; PULSE 74; TEMP 98.2
[2016-12-30] MEDS ORDERED: LIDOCAINE HCL 1%, 10 MG/ML (20ML VIAL) IJ ONE (13:00)
[2016-12-30] MEDS ORDERED: IOHEXOL 300 MG/ML INFUS..BTL IJ ONE (13:10)
--- NOTE | 2017-01-12 16:34 | DS ---
Physical Examination Vital Signs: Vital Signs Temperature 98.2 F 12/30/16 10:00 Pulse Rate 74 12/30/16 10:00 Respiratory Rate 20 12/30/16 10:00 Blood Pressure 135/94 12/30/16 10:00 O2 Sat by Pulse Oximetry (%) 95 12/30/16 09:00 Constitutional: Yes: Well Nourished, No Distress, Calm Cardiovascular: Yes: Regular Rate and Rhythm. No: Gallop, Murmur, Rub Respiratory: Yes: Regular, CTA Bilaterally. No: Rales, Rhonchi, Wheezes Gastrointestinal: Yes: Normal Bowel Sounds, Soft. No: Distention, Tenderness Extremities: Yes: Erythema, Other (ulceration) Labs: CBC, BMP 12/30/16 06:30 12/30/16 06:30 Discharge Summary Reason For Visit: UREMIC ENCEPHALOPATHY,ACUTE,CHRONIC RENAL FAILURE Current Active Problems Chest pain (Acute) Hospital Course: (1) Uremic encephalopathy Code(s): G93.41 - METABOLIC ENCEPHALOPATHY N19 - UNSPECIFIED KIDNEY FAILURE (2) Renal failure (ARF), acute on chronic Code(s): N17.9 - ACUTE KIDNEY FAILURE, UNSPECIFIED N18.9 - CHRONIC KIDNEY DISEASE, UNSPECIFIED (3) Cellulitis Code(s): L03.90 - CELLULITIS, UNSPECIFIED Qualifiers: Site of cellulitis: extremity Site of cellulitis of extremity: lower extremity Laterality: left Qualified Code(s): L03.116 - Cellulitis of left lower limb (4) Diabetes mellitus Code(s): E11.9 - TYPE 2 DIABETES MELLITUS WITHOUT COMPLICATIONS Qualifiers: Diabetes mellitus type: type 1 Diabetes mellitus complication status: with hyperglycemia Qualified Code(s): E10.65 - Type 1 diabetes mellitus with hyperglycemia (5) Hypomagnesemia Code(s): E83.42 - HYPOMAGNESEMIA (6) Hypertension Code(s): I10 - ESSENTIAL (PRIMARY) HYPERTENSION (7) Hypokalemia Code(s): E87.6 - HYPOKALEMIA (8) CAD (coronary artery disease) Code(s): I25.10 - ATHSCL HEART DISEASE OF [place] CORONARY ARTERY W/O ANG PCTRS Qualifiers: Coronary Disease-Associated Artery/Lesion type: unspecified vessel or lesion type [place] vs. transplanted heart: [place] heart Associated angina: with stable angina Qualified Code(s): I25.119 - Atherosclerotic heart disease of [place] coronary artery with unspecified angina pectoris (9) COPD (chronic obstructive pulmonary disease) Code(s): J44.9 - CHRONIC OBSTRUCTIVE PULMONARY DISEASE, UNSPECIFIED Qualifiers : COPD type: unspecified COPD Qualified Code(s): J44.9 - Chronic obstructive pulmonary disease, unspecified (10) Chronic pain Code(s): G89.29 - OTHER CHRONIC PAIN (11) Congestive heart failure (CHF) Code(s): I50.9 - HEART FAILURE, UNSPECIFIED Qualifiers: Congestive heart failure chronicity: chronic (12) Tobacco abuse Code(s): Z72.0 - TOBACCO USE (13) Fall Code(s): W19.XXXA - UNSPECIFIED FALL, INITIAL ENCOUNTER Qualifiers: Encounter type: initial encounter Qualified Code(s): W19.XXXA - Unspecified fall, initial encounter Mr Scott is a 67 year old male who comes in with uremic encephalopathy and cellulitis with ulceration from diabetic complications. Patient was receiving treatment for all his medical problems but decided to leave [place]. - Instructions Disposition: AGAINST MEDICAL ADVICE - Home Medications Comprehensive Discharge Medication List: Ambulatory Orders Atorvastatin Ca [Lipitor] 40 mg PO HS #0 tablet 02/19/14 Clopidogrel Bisulfate [Plavix -] 75 mg PO DAILY #20 tablet 02/19/14 Aspirin [Ecotrin] 81 mg PO DAILY 04/29/15 Temazepam [Restoril -] 60 mg PO HS 08/24/15 Docusate Sodium [Colace -] 100 mg PO BID capsule 08/26/15 Insulin Aspart [Novolog] 0 unit SQ PRN PRN 01/10/16 Metoprolol Succinate [Toprol XL -] 50 mg PO DAILY 01/10/16 Aclidinium [place] [Tudorza -] 1 inh PO BID 08/13/16 Budesonide/Formeterol Fumarate [SYMBICORT 160/4.5mcg -] 2 inh PO BID 08/13/16 Morphine *Sr* [MS Contin -] 60 mg PO TID 08/13/16 Albuterol 0.083% Nebulizer Clarisse [Ventolin 0.083% Nebulizer Soln -] 1 amp NEB QIDR amp 08/14/16 Hydralazine HCl [Apresoline -] 10 mg PO BID #180 tablet 08/14/16 Insulin (Levemir) [Levemir Vial] 50 unit SQ AM #0 08/14/16 Insulin (Levemir) [Levemir Vial] 50 units SQ HS ml 08/14/16 Morphine *Sr* [MS Contin -] 60 mg PO TID #90 tablet.sa MDD 3 08/14/16 Oxycodone HCl [Roxicodone -] 30 mg PO Q4H PRN #0 tablet MDD 6 08/14/16 Polyethylene Glycol 3350 [Miralax 119 gm Btl -] 17 gm PO BID PRN #0 bottle 08/14 Torsemide [Demadex -] 40 mg PO DAILY #180 tablet 08/14/16
== END 2016-12-30 10:05 | disposition left against medical advice (07) | DRG 637 ==
LOC: JER 11:26 → JERBED 15:37 → J8W 20:12
PROVIDERS: ADMIT Internal Medicine; ATTEND Internal Medicine
PROC: B40DYZZ Plain Radiography of Aorta and Bilateral Lower Extremity Arteries using Other Contrast (ICD-10-PCS; 2016-12-29)
PROC: B50CYZZ Plain Radiography of Left Lower Extremity Veins using Other Contrast (ICD-10-PCS; principal; 2016-12-29 12:00)
DX: E11.621 Type 2 diabetes mellitus with foot ulcer (principal); G93.49 Other encephalopathy; L03.116 Cellulitis of left lower limb; E87.0 Hyperosmolality and hypernatremia; I13.0 Hypertensive heart and chronic kidney disease with heart failure and stage 1 through stage 4 chronic kidney disease, or unspecified chronic kidney disease; N17.9 Acute kidney failure, unspecified; I25.10 Atherosclerotic heart disease of native coronary artery without angina pectoris; F17.210 Nicotine dependence, cigarettes, uncomplicated; G62.89 Other specified polyneuropathies; E78.5 Hyperlipidemia, unspecified; E87.5 Hyperkalemia; J44.9 Chronic obstructive pulmonary disease, unspecified; M54.16 Radiculopathy, lumbar region; E83.42 Hypomagnesemia; E87.6 Hypokalemia; G89.29 Other chronic pain; E83.39 Other disorders of phosphorus metabolism; E11.43 Type 2 diabetes mellitus with diabetic autonomic (poly)neuropathy; E11.65 Type 2 diabetes mellitus with hyperglycemia; N18.9 Chronic kidney disease, unspecified; I50.9 Heart failure, unspecified; W18.39XA Other fall on same level, initial encounter; Y93.89 Activity, other specified; Y92.89 Other specified places as the place of occurrence of the external cause; Y99.8 Other external cause status; Z95.5 Presence of coronary angioplasty implant and graft; Z86.73 Personal history of transient ischemic attack (TIA), and cerebral infarction without residual deficits; Z91.19 Patient's noncompliance with other medical treatment and regimen; Z79.4 Long term (current) use of insulin
CPT/HCPCS: 36415; 70450-TC; 71010-TC; 72050-TC; 72070-TC; 72100-TC; 73630-TC-LT; 76000-TC; 76775-TC; 80048; 80053; 81003; 82009; 82436; 82550; 82570; 82803; 83036; 83735; 84100; 84133; 84156; 84300; 84484; 84540; 85025; 85027; 85651; 86140; 87040; 87070; 87086; 87186; 87205; 93005; 93010; 94640; 94760; 97116-GP; 97161-GP; 99283-25; J1644

== ENCOUNTER 2017-01-12 19:39 | Inpatient (IN) | payer OTHER ==
--- NOTE | 2017-01-12 20:34 | PDOC ---
History of Present Illness - General History Source: Old Records Exam Limitations: Clinical Condition <Omid Andre - Last Filed: 01/12/17 23:15> - General History Source: Old Records Exam Limitations: Clinical Condition - History of Present Illness Initial Comments: 01/12/17 20:34 The patient is a 66 year old male with significant past medical history of DM, CKD, CVA 10/2014 without residual deficits, CAD with 5 stents s/p STEMI - mLAD PCI 2011, ischemic CM with systolic CHF, COPD, and extensive smoking history ( 5 packs per day, total of 50 years) who presents to the ED with AMS. Patient is a poor historian. He was seen in the ER 12/26 for elevated blood sugar and AMS, where he was admitted for uremic encephalopathy. During his admission he had an extensive workup followed by multiple treatments and a LLE Angiogram for non healing ulcer. Patient signed out AMA earlier today (as per notes) and now returns today for AMS. Allergies: Pantoprazole Social History: extensive smoking history (5 packs per day, total of 50 yrs) Past Surgical History: s/p cardiac stents x5. s/p LLE Angiogram for non healing ulcer (12/29/16) PCP: Dr. Vin Isbell <Joann Landis - Last Filed: 01/12/17 23:42> - General Chief Complaint: Altered Mental Status Stated Complaint: AMS Time Seen by Provider: 01/12/17 20:13 Past History - Past Medical History Anemia: No Asthma: No Cancer: No Cardiac Disorders: Yes (9 stents, [place], CAD) CVA: Yes (CVA IN 2014 W/O DEFICIT) COPD: Yes CHF: No Dementia: No Diabetes: Yes GI Disorders: Yes (colitis NOW CONSTIPATION) Disorders: Yes (ON FLOMAX; EDEMA) HTN: Yes Hypercholesterolemia: Yes Kidney Stones: Yes Liver Disease: No Suicide Attempt (Hx): No Seizures: No Thyroid Disease: No - Surgical History Abdominal Surgery: No Appendectomy: No Cardiac Surgery: Yes (stents x 9) Cholecystectomy: No Lung Surgery: No Neurologic Surgery: No Orthopedic Surgery: No - Immunization History Immunization Up to Date: No - Psycho/Social/Smoking Cessation Hx Anxiety: No Suicidal Ideation: No Smoking Status: No Smoking History: Current every day smoker Have you smoked in the past 12 months: Yes Number of Cigarettes Smoked Daily: 30 If you are a former smoker, when did you quit?: DOWN FROM 5 PACKS DAILY TO 2.5 PACKS DAILY Cigars Per Day: 0 Information on smoking cessation initiated: Yes 'Breaking Loose' booklet given: 01/12/17 Hx Alcohol Use: No Drug/Substance Use Hx: No Substance Use Type: None Hx Substance Use Treatment: No <Omid Andre - Last Filed: 01/12/17 23:15> <Joann Landis - Last Filed: 01/12/17 23:42> - Past Medical History Allergies/Adverse Reactions: Allergies Allergy/AdvReac Type Severity Reaction Status Date / Time pantoprazole sodium Allergy Verified 08/14/16 09:49 [From Protonix] Home Medications: Ambulatory Orders Atorvastatin Ca [Lipitor] 40 mg PO HS #0 tablet 02/19/14 Clopidogrel Bisulfate [Plavix -] 75 mg PO DAILY #20 tablet 02/19/14 Aspirin [Ecotrin] 81 mg PO DAILY 04/29/15 Temazepam [Restoril -] 60 mg PO HS 08/24/15 Docusate Sodium [Colace -] 100 mg PO BID capsule 08/26/15 Insulin Aspart [Novolog] 0 unit SQ PRN PRN 01/10/16 Metoprolol Succinate [Toprol XL -] 50 mg PO DAILY 01/10/16 Aclidinium [place] [Tudorza -] 1 inh PO BID 08/13/16 Budesonide/Formeterol Fumarate [SYMBICORT 160/4.5mcg -] 2 inh PO BID 08/13/16 Morphine *Sr* [MS Contin -] 60 mg PO TID 08/13/16 Albuterol 0.083% Nebulizer Clarisse [Ventolin 0.083% Nebulizer Soln -] 1 amp NEB QIDR amp 08/14/16 Hydralazine HCl [Apresoline -] 10 mg PO BID #180 tablet 08/14/16 Insulin (Levemir) [Levemir Vial] 50 unit SQ AM #0 08/14/16 Insulin (Levemir) [Levemir Vial] 50 units SQ HS ml 08/14/16 Morphine *Sr* [MS Contin -] 60 mg PO TID #90 tablet.sa MDD 3 08/14/16 Oxycodone HCl [Roxicodone -] 30 mg PO Q4H PRN #0 tablet MDD 6 08/14/16 Polyethylene Glycol 3350 [Miralax 119 gm Btl -] 17 gm PO BID PRN #0 bottle 08/14 Torsemide [Demadex -] 40 mg PO DAILY #180 tablet 08/14/16 Review of Systems - Review of Systems Able to Perform ROS?: No Comments:: 01/12/17 20:34 Unable to obtain due to clinical condition <Joann Landis - Last Filed: 01/12/17 23:42> *Physical Exam - Vital Signs Last Vital Signs Temp Pulse Resp BP Pulse Ox 102.8 F H 115 H 24 142/93 98 01/12/17 19:56 01/12/17 19:56 01/12/17 19:56 01/12/17 19:56 01/12/17 19:56 - Physical Exam General Appearance: Yes: Nourished, Apparent Distress, Disheveled, Obese HEENT: positive: Normal ENT Inspection Neck: positive: Supple. negative: Tender Respiratory/Chest: positive: Lungs Clear, Normal Breath Sounds. negative: Chest Tender, Respiratory Distress Cardiovascular: positive: Regular Rhythm, Regular Rate, JVD, Tachycardia Gastrointestinal/Abdominal: positive: Normal Bowel Sounds, Tender, Soft, Protuberent Musculoskeletal: positive: Normal Inspection. negative: CVA Tenderness Extremity: positive: Other (LEFT: ERYTHEMA AND EDEMA DISTAL FOOT W/ ULCERS. NO OBVIOUS PUS. RT: EDEMA W/O ERYHEMA. GREAT TOE ULCER NON FLUCTUANT) Integumentary: positive: Other (ECCHYMOSIS ANT ABD WALL) Neurologic: positive: Alert, Motor Strength 5/5, Confused, Disoriented, Other (+ CLONUS). negative: Facial Droop <Omid Andre - Last Filed: 01/12/17 23:15> - Vital Signs Last Vital Signs Temp Pulse Resp BP Pulse Ox 102.8 F H 115 H 24 142/93 98 01/12/17 19:56 01/12/17 19:56 01/12/17 19:56 01/12/17 19:56 01/12/17 19:56 <Joann Landis - Last Filed: 01/12/17 23:42> Heart Score/ECG Review - ECG Impressions Comment:: 01/12/17 23:41 Sinus rhythm with 1st degree AV block @91bpm Left axis deviation Moderate voltage criteria for LVH, may be normal variant Inferior infarct, age undetermined Anterior infarct, age undetermined Abnormal ECG <Joann Landis - Last Filed: 01/12/17 23:42> ED Treatment Course - LABORATORY CBC & Chemistry Diagram: 01/12/17 20:50 01/12/17 22:20 - ADDITIONAL ORDERS Additional order review: Laboratory Results 01/12/17 19:59 POC Glucometer [id number] 01/12/17 19:59 POC Glucometer 380.36206 - RADIOLOGY Radiology Studies Ordered: Category Date Time Status CXRPORT [CHEST X-RAY PORTABLE*] [RAD] Stat Radiology 01/12/17 20:27 Ordered <Omid Andre - Last Filed: 01/12/17 23:15> - LABORATORY CBC & Chemistry Diagram: 01/12/17 20:50 01/12/17 22:20 - ADDITIONAL ORDERS Additional order review: Laboratory Results 01/12/17 19:59 POC Glucometer [id number] 01/12/17 19:59 POC Glucometer [id number] <Joann Landis - Last Filed: 01/12/17 23:42> Medical Decision Making - Critical Care Time Total Critical Care Time (minutes): 30 Critical Care Statement: The care of this patient involved high complexity decision making to prevent further life threatening deterioration of the patient 's condition and/or to evalute & treat vital organ system(s) failure or risk of failure. - Medical Decision Making 01/12/17 23:15 HEMODYNAMICALLY STABLE. AFEBRILE. BS: 400 WBC: 30K ADMIT D/W DR. RODRIGUEZ <Omid Andre - Last Filed: 01/12/17 23:15> - Medical Decision Making 01/12/17 20:[address] Taqueria Rodriguez who is covering for Dr. Marquez Huang who is covering for Dr. Vin Isbell (via answering service) at 20:26 Awaiting call back 01/12/17 20:38 Patient's case discussed with Dr. Rodriguez at 20:38 01/12/17 20:57 Second assessment/interview: After speaking with patient's , I was notified that patient had signed out AMA 2 weeks ago. She reports patient is compliant with his medications, however since his disposition 2 weeks ago, patient has not improved. Last night patient told her that he was diaphoretic and thus turned the heat down in the house. Today she noted him to be shivering with changes to mental status. 01/12/17 23:[address] Rodriguez (via answering service) at 23:10 and patient's case was discussed. <Joann Landis - Last Filed: 01/12/17 23:42> *DC/Admit/Observation/Transfer - Discharge Dispostion Admit: Yes <Omid Andre - Last Filed: 01/12/17 23:15> - Attestations Scribe Attestion: 01/12/17 20:34 Documentation prepared by Joann Landis, acting as medical office supervisor for Omid Andre MD <Joann Landis - Last Filed: 01/12/17 23:42> Diagnosis at time of Disposition: Bacteremia, Cellulitis of foot - Discharge Dispostion Condition at time of disposition: Guarded
[2017-01-12] MEDS ORDERED: ACETAMINOPHEN 325 MG TABLET (FP) PO ONE (20:56)
[2017-01-12] MEDS ORDERED: SODIUM CHLORIDE 500 ML IV STA (20:57)
[2017-01-12 21:01] LABS: MCHC 33.2 g/dl (32.0-35.9); MEAN CELL VOLUME 87.4 fl (80-96); MEAN PLT VOLUME 9.2 fl (7.5-11.1); PLATELET COUNT 306 K/MM3 (134-434); RDW 14.7 % (11.9-15.9)
[2017-01-12 21:08] LABS: WHITE BLOOD COUNT 31.9 K/mm3 (4.0-10.0)
[2017-01-12] MEDS ORDERED: VANCOMYCIN 1,000 MG in DEXTROSE 5%-WATER - 250 ML IVPB ONE (21:10)
[2017-01-12] MEDS ORDERED: VANCOMYCIN 1 GRAM (PRE-DOCKED) 250 ML IVPB ONE (21:15)
[2017-01-12] MEDS ORDERED: ACETAMINOPHEN 325 MG TABLET (FP) ONE (21:16)
[2017-01-12] MEDS ORDERED: LACTULOSE 20 GM/30 ML UDC (FOR ORAL USE ONLY) PO ONE (21:20)
[2017-01-12] MEDS ORDERED: LACTULOSE 20 GM/30 ML UDC (FOR ORAL USE ONLY) ONE (21:54)
[2017-01-12 22:22] LABS: URINE APPEARANCE CLEAR; URINE BILIRUBIN NEGATIVE (NEGATIVE); URINE COLOR LTYELLOW; URINE GLUCOSE (UA) NEGATIVE (NEGATIVE); URINE KETONE NEGATIVE (NEGATIVE); URINE LEUK ESTERASE NEGATIVE (NEGATIVE); URINE NITRITE NEGATIVE (NEGATIVE); URINE UROBILINOGEN NEGATIVE E.U./dl (0.2-1.0)
[2017-01-12 22:37] LABS: URINE BLOOD 2+ (NEGATIVE); URINE PROTEIN 2+ (NEGATIVE)
[2017-01-12 22:38] LABS: URINE BACTERIA RARE /hpf (NONE SEEN); URINE RBC 7 /hpf (0-3); URINE WBC 3 /hpf (3-5)
[2017-01-12 23:00] LABS: BILIRUBIN,TOTAL 0.7 mg/dL (0.2-1.0); CALCIUM 8.8 mg/dL (8.5-10.1); CREATININE 2.5 mg/dL (0.7-1.3)
[2017-01-13] MEDS ORDERED: INSULIN REGULAR HUMAN 100 UNITS/ML *VIAL ONE (00:06)
[2017-01-13] MEDS ORDERED: INSULIN REGULAR HUMAN 100 UNITS/ML *VIAL IVPUSH ONE (00:06)
[2017-01-13] MEDS ORDERED: oxyCODONE HCL 5 MG TABLET PO PRN ×3 (00:49→10:51)
[2017-01-13 03:29] VITALS: BMI 25.9
[2017-01-13] MEDS ORDERED: ACETAMINOPHEN 325 MG TABLET (FP) PO PRN (08:00)
[2017-01-13] MEDS ORDERED: INSULIN (NOVOLOG) ASPART 100 UNITS/ML 10ML VIAL ONE ×3 (08:10→11:36)
[2017-01-13] MEDS: INSULIN SLIDING SCALE (NOVOLOG) 1 VIAL SQ SCH ×4 (08:13→22:48)
--- NOTE | 2017-01-13 09:38 | EKG ---
Test Reason : Blood Pressure : / mmHG Vent. Rate : 091 BPM Atrial Rate : 091 BPM P-R Int : 232 ms QRS Dur : 108 ms QT Int : 510 ms P-R-T Axes : 041 -52 083 degrees QTc Int : 627 ms SINUS RHYTHM WITH 1ST DEGREE A-V BLOCK LEFT AXIS DEVIATION MODERATE VOLTAGE CRITERIA FOR LVH, MAY BE NORMAL VARIANT INFERIOR INFARCT (CITED ON OR BEFORE 16-SEP-2001) ANTERIOR INFARCT (CITED ON OR BEFORE 10-MAR-2013) ABNORMAL ECG Confirmed by ERINN CARDOZA MD ([id number]) on 01/13/2017 9:37:52 AM Referred By: Confirmed By:ERINN CARDOZA MD
[2017-01-13] MEDS ORDERED: POLYETHYLENE GLYCOL 3350 119 GM BTL PO PRN ×2 (10:51→19:17)
[2017-01-13] MEDS ORDERED: INSULIN DETEMIR 100 UNITS/ML MDV SQ SCH ×2 (11:00→22:00)
[2017-01-13] MEDS ORDERED: hydrALAZINE HCL 10 MG TABLET PO SCH (11:00)
[2017-01-13] MEDS ORDERED: ONDANSETRON 4 MG/2 ML VIAL IVPB PRN ×2 (11:06→19:17)
--- NOTE | 2017-01-13 11:11 | HP ---
Admitting History and Physical - Primary Care Physician PCP: Vin Isbell - Admission Chief Complaint: I feel sick History of Present Illness: Mr Scott is a 66 year old male who recently left AMA while being treated for cellulitis and diabetic wound who presents with altered mental status. He says he does not remember coming to the hospital. He says he was doing well at home. He denies fevers, chills, lightheadedness, dizziness, chest pain, shortness of breath, nausea, vomiting, diarrhea, constipation, difficulty or pain on urination, or swelling. He says that both of his feet are worse than when he left but they are not painful. He is asking about being put back on his chronic pain medications and his sleeping pill. 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 No: AFIB Pulmonary: Yes: COPD Gastrointestinal: Yes: Other (Colitis) Renal/: Yes: Renal Inusuff, Other (hyperkalemia) Psych: Yes: Addictions Musculoskeletal: Yes: Other (Lumbar radiculopathy) Endocrine: Yes: Diabetes Mellitus - Past Surgical History Past Surgical History: Yes: Stent - Smoking History Smoking history: Current every day smoker Have you smoked in the past 12 months: Yes Aproximately how many cigarettes per day: 30 If you are a former smoker, when did you quit?: DOWN FROM 5 PACKS DAILY TO 2.5 PACKS DAILY - Alcohol/Substance Use Hx Alcohol Use: No History of Substance Use: reports: None - Social History ADL: Independent History of Recent Travel: No Home Medications - Allergies Allergies/Adverse Reactions: Allergies Allergy/AdvReac Type Severity Reaction Status Date / Time pantoprazole sodium Allergy Verified 01/13/17 06:26 [From Protonix] - Home Medications Home Medications: Ambulatory Orders Atorvastatin Ca [Lipitor] 40 mg PO HS #0 tablet 02/19/14 Clopidogrel Bisulfate [Plavix -] 75 mg PO DAILY #20 tablet 02/19/14 Aspirin [Ecotrin] 81 mg PO DAILY 04/29/15 Temazepam [Restoril -] 60 mg PO HS 08/24/15 Docusate Sodium [Colace -] 100 mg PO BID capsule 08/26/15 Insulin Aspart [Novolog] 0 unit SQ PRN PRN 01/10/16 Metoprolol Succinate [Toprol XL -] 50 mg PO DAILY 01/10/16 Aclidinium [place] [Tudorza -] 1 inh PO BID 08/13/16 Budesonide/Formeterol Fumarate [SYMBICORT 160/4.5mcg -] 2 inh PO BID 08/13/16 Morphine *Sr* [MS Contin -] 60 mg PO TID 08/13/16 Albuterol 0.083% Nebulizer Clarisse [Ventolin 0.083% Nebulizer Soln -] 1 amp NEB QIDR amp 08/14/16 Hydralazine HCl [Apresoline -] 10 mg PO BID #180 tablet 08/14/16 Insulin (Levemir) [Levemir Vial] 50 unit SQ AM #0 08/14/16 Insulin (Levemir) [Levemir Vial] 50 units SQ HS ml 08/14/16 Morphine *Sr* [MS Contin -] 60 mg PO TID #90 tablet.sa MDD 3 08/14/16 Oxycodone HCl [Roxicodone -] 30 mg PO Q4H PRN #0 tablet MDD 6 08/14/16 Polyethylene Glycol 3350 [Miralax 119 gm Btl -] 17 gm PO BID PRN #0 bottle 08/14 Torsemide [Demadex -] 40 mg PO DAILY #180 tablet 08/14/16 Family Disease History - Family Disease History Family Disease History: Diabetes: Grandparent, Sister (COPD), [place]: Father, Respiratory: Sister, Other: Mother (CVA) Review of Systems Findings/Remarks: Full review of systems obtained, as per HPI and otherwise negative. Physical Examination Vital Signs: Vital Signs Temperature 102.8 F H 01/13/17 06:00 Pulse Rate 93 H 01/13/17 06:00 Respiratory Rate 20 01/13/17 06:00 Blood Pressure 129/60 01/13/17 06:00 O2 Sat by Pulse Oximetry (%) 92 L 01/13/17 03:37 Constitutional: Yes: Well Nourished, No Distress, Calm Eyes: Yes: Conjunctiva Clear, EOM Intact, PERRL HENT: Yes: Atraumatic, Normocephalic Cardiovascular: Yes: Regular Rate and Rhythm. No: Gallop, Murmur, Rub Respiratory: Yes: Regular, CTA Bilaterally. No: Rales, Rhonchi, Wheezes Gastrointestinal: Yes: Normal Bowel Sounds, Soft. No: Distention, Tenderness Extremities: Yes: Erythema, Other (ulceration on both feet) Edema: No Labs: Laboratory Results - last 24 hr 01/12/17 01/12/17 01/12/17 19:59 20:50 20:50 WBC 31.9 H* D RBC 4.63 Hgb 13.4 Hct 40.4 MCV 87.4 MCHC 33.2 RDW 14.7 Plt Count 306 D MPV 9.2 Neutrophils % 90.0 H D Lymphocytes % 2.0 L D Monocytes % 3.0 L Eosinophils % 0.0 D Band Neutrophils 5.0 D Sodium Cancelled Potassium Cancelled Chloride Cancelled Carbon Dioxide Cancelled Anion Gap Cancelled BUN Cancelled Creatinine Cancelled Creat Clearance w eGFR Cancelled POC Glucometer [id number] Random Glucose Cancelled Calcium Cancelled Total Bilirubin Cancelled AST Cancelled ALT Cancelled Alkaline Phosphatase Cancelled Ammonia Total Protein Cancelled Albumin Cancelled Urine Color Urine Appearance Urine pH Ur [place] Urine Protein Urine Glucose (UA) Urine Ketones Urine Blood Urine Nitrite Urine Bilirubin Urine Urobilinogen Ur Leukocyte Esterase Urine RBC Urine WBC Ur Epithelial Cells Urine Bacteria 01/12/17 01/12/17 01/12/17 20:50 21:55 22:20 WBC RBC Hgb Hct MCV MCHC RDW Plt Count MPV Neutrophils % Lymphocytes % Monocytes % Eosinophils % Band Neutrophils Sodium 130 L Potassium 3.6 Chloride 89 L D Carbon Dioxide 29 Anion Gap 12 BUN 79 H D Creatinine 2.5 H D Creat Clearance w eGFR 25.81 POC Glucometer Random Glucose 407 H* D Calcium 8.8 Total Bilirubin 0.7 AST 28 D ALT 14 D Alkaline Phosphatase 145 H Ammonia 10.15 L Total Protein 6.0 L Albumin 3.0 L Urine Color Ltyellow Urine Appearance Clear Urine pH 5.0 Ur [place] 1.013 Urine Protein 2+ H Urine Glucose (UA) Negative Urine Ketones Negative Urine Blood 2+ H Urine Nitrite Negative Urine Bilirubin Negative Urine Urobilinogen Negative Ur Leukocyte Esterase Negative Urine RBC 7 Urine WBC 3 Ur Epithelial Cells Rare Urine Bacteria Rare 01/12/17 01/13/17 01/13/17 23:39 06:23 11:33 WBC RBC Hgb Hct MCV MCHC RDW Plt Count MPV Neutrophils % Lymphocytes % Monocytes % Eosinophils % Band Neutrophils Sodium Potassium Chloride Carbon Dioxide Anion Gap BUN Creatinine Creat Clearance w eGFR POC Glucometer > 400 330 354 Random Glucose Calcium Total Bilirubin AST ALT Alkaline Phosphatase Ammonia Total Protein Albumin Urine Color Urine Appearance Urine pH Ur [place] Urine Protein Urine Glucose (UA) Urine Ketones Urine Blood Urine Nitrite Urine Bilirubin Urine Urobilinogen Ur Leukocyte Esterase Urine RBC Urine WBC Ur Epithelial Cells Urine Bacteria Imaging - Results Chest X-ray: Report Reviewed, Image Reviewed Problem List - Problems (1) Sepsis Assessment/Plan: -as evidenced by bacteremia, severe leukocytosis, fevers, and ARF -secondary to diabetic foot ulcer -given vancomycin and zosyn -ID consulted -encouraged patient to not leave AMA this time and receive full treatment -considering patient did not receive full treatment and is now bacteremic, will also obtain ECHO to evaluate for endocarditis Code(s): A41.9 - SEPSIS, UNSPECIFIED ORGANISM (2) Diabetic foot ulcer Assessment/Plan: -patient with worsening diabetic foot ulcer -most likely source of bacteremia/sepsis -consult podiatry -given vancomycin in the ED, will give dose of zosyn as well -ID consulted -check ESR and CRP, ? osteomyelitis Code(s): E11.621 - TYPE 2 DIABETES MELLITUS WITH FOOT ULCER L97.509 - NON-PRESSURE CHRONIC ULCER OTH PRT UNSP FOOT W UNSP SEVERITY (3) Cellulitis of foot Assessment/Plan: -antibiotics as above -podiatry and ID consulted Code(s): L03.119 - CELLULITIS OF UNSPECIFIED PART OF LIMB (4) Renal failure (ARF), acute on chronic Assessment/Plan: -secondary to sepsis -hold torsemide -hydrate with IVF -continue to monitor Code(s): N17.9 - ACUTE KIDNEY FAILURE, UNSPECIFIED N18.9 - CHRONIC KIDNEY DISEASE, UNSPECIFIED (5) CAD (coronary artery disease) Assessment/Plan: -continue aspirin and plavix -continue metoprolol -continue lipitor -quiescent Code(s): I25.10 - ATHSCL HEART DISEASE OF [place] CORONARY ARTERY W/O ANG PCTRS Qualifiers: Coronary Disease-Associated Artery/Lesion type: unspecified vessel or lesion type [place] vs. transplanted heart: [place] heart Associated angina: with stable angina Qualified Code(s): I25.119 - Atherosclerotic heart disease of [place] coronary artery with unspecified angina pectoris (6) COPD (chronic obstructive pulmonary disease) Assessment/Plan: -not in exacerbation -continue home regimen Code(s): J44.9 - CHRONIC OBSTRUCTIVE PULMONARY DISEASE, UNSPECIFIED Qualifiers : COPD type: unspecified COPD Qualified Code(s): J44.9 - Chronic obstructive pulmonary disease, unspecified (7) Chronic pain Assessment/Plan: -will continue patient on his home regimen -will not increase pain medications at this time Code(s): G89.29 - OTHER CHRONIC PAIN (8) Diabetes mellitus Assessment/Plan: -patient with uncontrolled diabetes -continue levemir 50 units bid and SSI -diabetic diet -consult endocrinology Code(s): E11.9 - TYPE 2 DIABETES MELLITUS WITHOUT COMPLICATIONS Qualifiers: Diabetes mellitus type: type 1 Diabetes mellitus complication status: with hyperglycemia Qualified Code(s): E10.65 - Type 1 diabetes mellitus with hyperglycemia (9) Hyperlipidemia Assessment/Plan: -continue statin Code(s): E78.5 - HYPERLIPIDEMIA, UNSPECIFIED (10) Hypertension Assessment/Plan: -continue hydralazine and metoprolol -monitor Code(s): I10 - ESSENTIAL (PRIMARY) HYPERTENSION (11) Tobacco abuse Assessment/Plan: -nicotine patch -encouraged smoking cessation Code(s): Z72.0 - TOBACCO USE
[2017-01-13] MEDS ORDERED: SODIUM CHLORIDE 1,000 ML IV SCH (11:15)
[2017-01-13] MEDS ORDERED: CLOPIDOGREL BISULFATE 75 MG TABLET (FP) PO SCH (11:30)
[2017-01-13] MEDS ORDERED: PIPERACILLIN/TAZOB 3.375 GM 50 ML IVPB ONE (12:30)
[2017-01-13] MEDS ORDERED: LACTOBACILLUS ACIDOPHILUS 1 EACH TAB (FP) PO SCH (12:30)
[2017-01-13] MEDS: ALBUTEROL SO4 0.083% IH SOL 2.5 MG/3 ML VIAL.NEB. NEB SCH ×3 (14:00→23:41)
[2017-01-13] MEDS ORDERED: morphine SO4 SUSTAINED ACTING 30 MG TABLET.SA PO SCH (14:00)
[2017-01-13] MEDS ORDERED: NICOTINE 21 MG/24 HOURS TOPICAL PATCH TD SCH (14:15)
--- NOTE | 2017-01-13 14:29 | CONSULT ---
Consult Consult Specialty:: infectious diseases Reason for Consultation:: bacteremia - History of Present Illness Chief Complaint: not feeling well History of Present Illness: 66 year old male who recently left AMA while being treated for cellulitis and diabetic wound who was treated with abx and gone home patient states that he started shivering and thought that it was due to not having heat He says that both of his feet are worse than when he left but they are not painful. He is asking about being put back on his chronic pain medications and his sleeping pill. 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 No: AFIB Pulmonary: Yes: COPD Gastrointestinal: Yes: Other (Colitis) Renal/: Yes: Renal Inusuff, Other (hyperkalemia) Psych: Yes: Addictions Musculoskeletal: Yes: Other (Lumbar radiculopathy) Endocrine: Yes: Diabetes Mellitus - Past Surgical History Past Surgical History: Yes: Stent - Alcohol/Substance Use Hx Alcohol Use: No History of Substance Use: reports: None - Smoking History Smoking history: Current every day smoker Have you smoked in the past 12 months: Yes Aproximately how many cigarettes per day: 30 If you are a former smoker, when did you quit?: DOWN FROM 5 PACKS DAILY TO 2.5 PACKS DAILY - Social History Usual Living Arrangement: With Spouse ADL: Independent History of Recent Travel: No Home Medications - Allergies Allergies/Adverse Reactions: Allergies Allergy/AdvReac Type Severity Reaction Status Date / Time pantoprazole sodium Allergy Verified 01/13/17 06:26 [From Protonix] - Home Medications Home Medications: Ambulatory Orders Atorvastatin Ca [Lipitor] 40 mg PO HS #0 tablet 02/19/14 Clopidogrel Bisulfate [Plavix -] 75 mg PO DAILY #20 tablet 02/19/14 Aspirin [Ecotrin] 81 mg PO DAILY 04/29/15 Temazepam [Restoril -] 60 mg PO HS 08/24/15 Docusate Sodium [Colace -] 100 mg PO BID capsule 08/26/15 Insulin Aspart [Novolog] 0 unit SQ PRN PRN 01/10/16 Metoprolol Succinate [Toprol XL -] 50 mg PO DAILY 01/10/16 Aclidinium [place] [Tudorza -] 1 inh PO BID 08/13/16 Budesonide/Formeterol Fumarate [SYMBICORT 160/4.5mcg -] 2 inh PO BID 08/13/16 Morphine *Sr* [MS Contin -] 60 mg PO TID 08/13/16 Albuterol 0.083% Nebulizer Clarisse [Ventolin 0.083% Nebulizer Soln -] 1 amp NEB QIDR amp 08/14/16 Hydralazine HCl [Apresoline -] 10 mg PO BID #180 tablet 08/14/16 Insulin (Levemir) [Levemir Vial] 50 unit SQ AM #0 08/14/16 Insulin (Levemir) [Levemir Vial] 50 units SQ HS ml 08/14/16 Morphine *Sr* [MS Contin -] 60 mg PO TID #90 tablet.sa MDD 3 08/14/16 Oxycodone HCl [Roxicodone -] 30 mg PO Q4H PRN #0 tablet MDD 6 08/14/16 Polyethylene Glycol 3350 [Miralax 119 gm Btl -] 17 gm PO BID PRN #0 bottle 08/14 Torsemide [Demadex -] 40 mg PO DAILY #180 tablet 08/14/16 Family Disease History - Family Disease History Family Disease History: Diabetes: Grandparent, Sister (COPD), CA: Father, Respiratory: Sister, Other: Mother (CVA) Review of Systems - Review of Systems Constitutional: reports: Chills, Weakness, Other Eyes: reports: No Symptoms HENT: reports: No Symptoms Neck: reports: No Symptoms Cardiovascular: reports: No Symptoms Respiratory: reports: SOB Gastrointestinal: reports: No Symptoms Genitourinary: reports: No Symptoms Musculoskeletal: reports: Muscle Pain, Other Integumentary: reports: Change in Color, Erythema Hematology/Lymphatic: reports: No Symptoms Psychiatric: reports: No Symptoms Physical Exam Vital Signs: Vital Signs Temperature 98.7 F 01/13/17 13:46 Pulse Rate 106 H 01/13/17 13:46 Respiratory Rate 20 01/13/17 13:46 Blood Pressure 160/84 01/13/17 13:46 O2 Sat by Pulse Oximetry (%) 92 L 01/13/17 03:37 Constitutional: Yes: Moderate Distress, Other Eyes: Yes: Conjunctiva Clear HENT: Yes: Atraumatic Neck: Yes: Supple, Trachea Midline Cardiovascular: Yes: Regular Rate and Rhythm Respiratory: Yes: Regular, CTA Bilaterally Gastrointestinal: Yes: Normal Bowel Sounds, Soft Musculoskeletal: Yes: Other Extremities: Yes: Erythema (left leg diabetic ulcer), Other Integumentary: Yes: Erythema, Other Wound/Incision: Yes: Other (dry) Neurological: Yes: Alert Psychiatric: Yes: Alert Imaging - Results Chest X-ray: Report Reviewed, Image Reviewed Assessment/Plan This patient treated couple of days back with cefazolin and flagyl now comes with fulminant infection and in sepsis with gram positive bacteremia i have a strong suspicion that now it might be a resistant organism I dont know how many days he was treated from last infection and how it was done. He has got vanco and zosyn he has very bad kidneys,but he also has severe infection and needs to be covered agree with the patient getting echo also patient leg does not look good and i am worried about deep seated infection Imaging - Results Chest X-ray: Report Reviewed, Image Reviewed Problem List - Problems (1) Sepsis Code(s): A41.9 - SEPSIS, UNSPECIFIED ORGANISM (2) Diabetic foot ulcer Code(s): E11.621 - TYPE 2 DIABETES MELLITUS WITH FOOT ULCER L97.509 - NON-PRESSURE CHRONIC ULCER OTH PRT UNSP FOOT W UNSP SEVERITY (3) Cellulitis of foot Code(s): L03.119 - CELLULITIS OF UNSPECIFIED PART OF LIMB (4) Renal failure (ARF), acute on chronic Code(s): N17.9 - ACUTE KIDNEY FAILURE, UNSPECIFIED N18.9 - CHRONIC KIDNEY DISEASE, UNSPECIFIED (5) CAD (coronary artery disease) Code(s): I25.10 - ATHSCL HEART DISEASE OF [place] CORONARY ARTERY W/O ANG PCTRS Qualifiers: Coronary Disease-Associated Artery/Lesion type: unspecified vessel or lesion type [place] vs. transplanted heart: [place] heart Associated angina: with stable angina Qualified Code(s): I25.119 - Atherosclerotic heart disease of [place] coronary artery with unspecified angina pectoris (6) COPD (chronic obstructive pulmonary disease) Code(s): J44.9 - CHRONIC OBSTRUCTIVE PULMONARY DISEASE, UNSPECIFIED Qualifiers : COPD type: unspecified COPD Qualified Code(s): J44.9 - Chronic obstructive pulmonary disease, unspecified (7) Chronic pain Code(s): G89.29 - OTHER CHRONIC PAIN (8) Diabetes mellitus Code(s): E11.9 - TYPE 2 DIABETES MELLITUS WITHOUT COMPLICATIONS Qualifiers: Diabetes mellitus type: type 1 Diabetes mellitus complication status: with hyperglycemia Qualified Code(s): E10.65 - Type 1 diabetes mellitus with hyperglycemia (9) Hyperlipidemia Code(s): E78.5 - HYPERLIPIDEMIA, UNSPECIFIED (10) Hypertension Code(s): I10 - ESSENTIAL (PRIMARY) HYPERTENSION (11) Tobacco abuse Code(s): Z72.0 - TOBACCO USE gram positive bacteremia plan i have started him on clinda we will continue zosyn for now we should get mri of both legs once he is stable await for podiatry input close monitoring as patient is pretty sick we will wait for identification of the organism
[2017-01-13] MEDS ORDERED: VANCOMYCIN 1,000 MG in DEXTROSE 5%-WATER - 250 ML IVPB SCH (14:45)
[2017-01-13] MEDS: CLINDAMYCIN 600MG PREMIX IVPB 50 ML IVPB SCH ×2 (15:41→17:53)
[2017-01-13 17:24] LABS: ARTERIAL BLD GAS O2 SATURATION 94.9 % (90-98.9); ARTERIAL BLOOD GAS BASE EXCESS 5.3 meq/l (-2-2); ARTERIAL BLOOD GAS HCO3 28.5 meq/L (22-26)
[2017-01-13 17:25] LABS: ALLENS TEST POSITIVE; ART PUNCT SITE RIGHT RADIAL; ARTERIAL BLOOD GAS pH 7.49 (7.35-7.45); LPM/O2% 50%; PT. ON O2? YES; TYPE OF O2 VENTIMASK
[2017-01-13] MEDS ORDERED: ACETAMINOPHEN 1000 MG/100 ML VIAL (NON FORMULARY) IVPB PRN (17:55)
[2017-01-13] MEDS ORDERED: INSULIN DETEMIR 100 UNITS/ML MDV SQ ONE (17:57)
[2017-01-13] MEDS ORDERED: PIPERACILLIN/TAZOB 2.25 GM 50 ML IVPB SCH (18:00)
[2017-01-13] MEDS ORDERED: HEPARIN NA (PORCINE) 5,000 UNITS/ML 1ML VIAL SQ SCH (18:00)
--- NOTE | 2017-01-13 19:01 | CONSULT ---
Consultation: REQUESTING PROVIDER: Dr. Huang CONSULT REQUEST: We have been asked to medically evaluate this patient for ICU HISTORY OF PRESENT ILLNESS: 66 yo male h/o HTN, HLD, CHF, COPD, CKD, CVA, CAD s/p stents, DMII with peripheral neuropathy and foot ulcers admitted to the ICU for sepsis and acute respiratory distress. Patient signed out AMA in last admission when he's being treated for diabetic foot ulcer and cellulitis. He's originally admitted to the ER today around noon due to AMS and found to be tachypneic and short of breath at 4pm. He denies fevers, chills, lightheadedness, dizziness, chest pain, n/v, diarrhea, urinary or bowel symptoms. REVIEW OF SYSTEMS: CONSTITUTIONAL: generalized weakness Absent: fever, chills, diaphoresis, , malaise, loss of appetite, weight change HEENT: Absent: rhinorrhea, nasal congestion, throat pain, throat swelling, difficulty swallowing, mouth swelling, ear pain, eye pain, visual changes CARDIOVASCULAR: Absent: chest pain, syncope, palpitations, irregular heart rate, lightheadedness , peripheral edema RESPIRATORY: shortness of breath, Absent: cough, dyspnea with exertion, orthopnea, wheezing, stridor, hemoptysis GASTROINTESTINAL: Absent: abdominal pain, abdominal distension, nausea, vomiting, diarrhea, constipation, melena, hematochezia GENITOURINARY: Absent: dysuria, frequency, urgency, hesitancy, hematuria, flank pain, genital pain MUSCULOSKELETAL: myalgia, arthralgia Absent: , joint swelling, back pain, neck pain SKIN: Absent: rash, itching, pallor HEMATOLOGIC/IMMUNOLOGIC: Absent: easy bleeding, easy bruising, lymphadenopathy, frequent infections ENDOCRINE: Absent: unexplained weight gain, unexplained weight loss, heat intolerance, cold intolerance NEUROLOGIC: Absent: headache, focal weakness or paresthesias, dizziness, unsteady gait, seizure, mental status changes, bladder or bowel incontinence PSYCHIATRIC: Absent: anxiety, depression, suicidal or homicidal ideation, hallucinations. PHYSICAL EXAMINATION On 100% non-rebreather Last Vital Signs Temp Pulse Resp BP Pulse Ox 98.7 F 106 H 20 160/84 100 01/13/17 13:46 01/13/17 13:46 01/13/17 13:46 01/13/17 13:46 01/13/17 18:30 GENERAL: Awake, alert, and fully oriented, in acute respiratory distress HEAD: AT, NC EYES: Pupils equal, round and reactive to light, sclera anicteric, conjunctiva clear EARS, NOSE, THROAT: nares patent, oropharynx clear without exudates LUNGS: loud biphasic rhonchi b/l, rapid and shallow breathing HEART: Tachycardic, S1 and S2, no murmur, rub ABDOMEN: +bs, soft, mild diffuse tenderness, no rebound, guarding EXTREMITIES: No calf tenderness. No peripheral edema. NEUROLOGICAL: Cranial nerves II-XII intact ABG Results ABG pH 7.49 (7.35-7.45) H 01/13/17 17:20 ABG pCO2 at Pt Temp 37.7 mmHg (35-45) 01/13/17 17:20 ABG pO2 at Pt Temp 71.0 mmHg (80-100) L 01/13/17 17:20 ABG HCO3 28.5 meq/L (22-26) H 01/13/17 17:20 ABG O2 Sat (Measured) 94.9 % (90-98.9) 01/13/17 17:20 ABG O2 Content 18.3 % vol (15-22) 01/13/17 17:20 ABG Base Excess 5.3 meq/l (-2-2) H 01/13/17 17:20 Active Medications Generic Name Dose Route Start Last Admin Trade Name Freq PRN Reason Stop Dose Admin Acetaminophen 650 mg 01/13/17 08:00 01/13/17 08:13 Tylenol - PO 650 mg Q6H PRN Administration FEVER OR PAIN Acetaminophen 1,000 mg 01/13/17 17:55 01/13/17 18:13 Ofirmev Injection - IVPB 01/14/17 11:56 1,000 mg Q6H PRN Administration FEVER OR PAIN Aclidinium [place] 1 puff 01/13/17 22:00 Tudorza - IH BID RADHA Albuterol Sulfate 1 amp 01/13/17 12:00 01/13/17 14:00 Ventolin 0.083% Nebulizer Soln - NEB Not Given QIDR RADHA Aspirin 81 mg 01/14/17 10:00 Ecotrin - PO DAILY RADHA Atorvastatin Calcium 40 mg 01/13/17 22:00 Lipitor - PO HS RADHA Budesonide/Formoterol Fumarate 2 puff 01/13/17 22:00 Symbicort 160/4.5mcg - IH BID [facility] Clopidogrel Bisulfate 75 mg 01/13/17 11:30 01/13/17 11:43 Plavix - PO 75 mg DAILY RADHA Administration Docusate Sodium 100 mg 01/13/17 22:00 Colace - PO BID [facility] Heparin Sodium (Porcine) 5,000 unit 01/13/17 18:00 01/13/17 17:54 Heparin - SQ 5,000 unit Q8H-IV RADHA Administration Hydralazine HCl 10 mg 01/13/17 11:00 01/13/17 11:43 Apresoline - PO 10 mg BID RADHA Administration Sodium Chloride 1,000 mls @ 75 mls/hr 01/13/17 11:15 01/13/17 13:20 Normal Saline - IV 75 mls/hr ASDIR RADHA Administration Piperacillin Sod/Tazobactam Sod 50 mls @ 100 mls/hr 01/13/17 18:00 01/13/17 17: 54 Zosyn 2.25gm Ivpb (Pre-Docked) IVPB 100 mls/hr Q8H-IV RADHA Administration Protocol Clindamycin Phosphate 50 mls @ 100 mls/hr 01/13/17 14:45 01/13/17 17:53 Cleocin 600 Mg Premix Ivpb - IVPB Not Given Q8H-IV [facility] Insulin Aspart 1 vial 01/13/17 11:00 01/13/17 17:01 Novolog Vial Sliding Scale - SQ 10 units ACHS RADHA Administration Protocol Insulin Detemir 50 units 01/13/17 11:00 01/13/17 13:21 Levemir Vial SQ 50 units AM RADHA Administration Insulin Detemir 50 units 01/13/17 22:00 Levemir Vial SQ HS [facility] Lactobacillus Acidophilus 1 tab 01/13/17 12:30 01/13/17 13:18 Bacid - PO 1 tab DAILY [facility] Administration Metoprolol Succinate 50 mg 01/14/17 10:00 Toprol Xl - PO DAILY [facility] Morphine Sulfate 60 mg 01/13/17 14:00 01/13/17 13:19 Ms Contin - PO 60 mg TID RADHA Administration Nicotine 21 mg 01/13/17 14:15 01/13/17 14:24 Nicoderm Patch - TD 21 mg DAILY [facility] Administration Ondansetron HCl 4 mg 01/13/17 11:06 Zofran Injection IVPB Q6H PRN NAUSEA Oxycodone HCl 30 mg 01/13/17 10:51 01/13/17 15:52 Roxicodone - PO 30 mg Q4H PRN Administration PAIN Polyethylene Glycol 17 gm 01/13/17 10:51 Miralax (For Daily Use) - PO BID PRN CONSTIPATION Imaging CXR on 01/13: pending CXR on 01/12: no acute pathology ASSESSMENT/PLAN: 66 yo male h/o HTN, HLD, CHF, COPD, CKD, CVA, CAD s/p stents, DMII with peripheral neuropathy and foot ulcers admitted to the ICU for sepsis and acute respiratory distress. Pulm: Acute respiratory distress - Cont. 100% non-rebreather * BiPAP PRN - Maintain O2 Sat. > 88% - Cont. symbicort, tudorza - Nebulizers PRN - Daily CXR and ABG ID: Sepsis 2/2 diabetic foot ulcer and cellulitis - Elevated WBC and fever of 103F - Pending mcdowell cultures - Trend ESR - MRI foot when stable - On clindamycin and zosyn day 1 Renal: CKD stage 4 - Cr at baseline - Cont. hydration - [place] PRN - Monitor I/O Endo: DM2 with neuropathy - Cont. levemir and sliding scale - Cont. morphine and oxycodone - BGM Cardiac: CAD s/p stent; HTN - Cont. Asa, plavix, and lipitor - Cont. hydralazine and lopressor FEN - IVF NS 75ml/hr - Cont. to monitor lytes - PO Diet as tolerated - Prophylaxis - DVT: heparin SQ - GI: on PPI Disposition - Cont. to monitor in ICU Code status - Full code Visit type - Emergency Visit Emergency Visit: No - New Patient This patient is new to me today: Yes Date on this admission: 01/13/17 - Critical Care Critical Care patient: Yes Total Critical Care Time (in minutes): 45 Critical Care Statement: The care of this patient involved high complexity decision making to prevent further life threatening deterioration of the patient 's condition and/or to evalute & treat vital organ system(s) failure or risk of failure.
--- NOTE | 2017-01-13 19:04 | CONSULT ---
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 No: AFIB Pulmonary: Yes: COPD Gastrointestinal: Yes: Other (Colitis) Renal/: Yes: Renal Inusuff, Other (hyperkalemia) Psych: Yes: Addictions Musculoskeletal: Yes: Other (Lumbar radiculopathy) Endocrine: Yes: Diabetes Mellitus - Past Surgical History Past Surgical History: Yes: Stent - Alcohol/Substance Use Hx Alcohol Use: No History of Substance Use: reports: None - Smoking History Smoking history: Current every day smoker Have you smoked in the past 12 months: Yes Aproximately how many cigarettes per day: 30 If you are a former smoker, when did you quit?: DOWN FROM 5 PACKS DAILY TO 2.5 PACKS DAILY - Social History Usual Living Arrangement: With Spouse ADL: Independent History of Recent Travel: No Home Medications - Allergies Allergies/Adverse Reactions: Allergies Allergy/AdvReac Type Severity Reaction Status Date / Time pantoprazole sodium Allergy Verified 01/13/17 06:26 [From Protonix] - Home Medications Home Medications: Ambulatory Orders Atorvastatin Ca [Lipitor] 40 mg PO HS #0 tablet 02/19/14 Clopidogrel Bisulfate [Plavix -] 75 mg PO DAILY #20 tablet 02/19/14 Aspirin [Ecotrin] 81 mg PO DAILY 04/29/15 Temazepam [Restoril -] 60 mg PO HS 08/24/15 Docusate Sodium [Colace -] 100 mg PO BID capsule 08/26/15 Insulin Aspart [Novolog] 0 unit SQ PRN PRN 01/10/16 Metoprolol Succinate [Toprol XL -] 50 mg PO DAILY 01/10/16 Aclidinium [place] [Tudorza -] 1 inh PO BID 08/13/16 Budesonide/Formeterol Fumarate [SYMBICORT 160/4.5mcg -] 2 inh PO BID 08/13/16 Morphine *Sr* [MS Contin -] 60 mg PO TID 08/13/16 Albuterol 0.083% Nebulizer Clarisse [Ventolin 0.083% Nebulizer Soln -] 1 amp NEB QIDR amp 08/14/16 Hydralazine HCl [Apresoline -] 10 mg PO BID #180 tablet 08/14/16 Insulin (Levemir) [Levemir Vial] 50 unit SQ AM #0 08/14/16 Insulin (Levemir) [Levemir Vial] 50 units SQ HS ml 08/14/16 Morphine *Sr* [MS Contin -] 60 mg PO TID #90 tablet.sa MDD 3 08/14/16 Oxycodone HCl [Roxicodone -] 30 mg PO Q4H PRN #0 tablet MDD 6 08/14/16 Polyethylene Glycol 3350 [Miralax 119 gm Btl -] 17 gm PO BID PRN #0 bottle 08/14 Torsemide [Demadex -] 40 mg PO DAILY #180 tablet 08/14/16 Family Disease History - Family Disease History Family Disease History: Diabetes: Grandparent, Sister (COPD), CA: Father, Respiratory: Sister, Other: Mother (CVA) Review of Systems Unable to obtain ROS, reason: confused - Review of Systems Constitutional: reports: Lethargy, Malaise Physical Exam Vital Signs: Vital Signs Temperature 98.7 F 01/13/17 13:46 Pulse Rate 106 H 01/13/17 13:46 Respiratory Rate 20 01/13/17 13:46 Blood Pressure 160/84 01/13/17 13:46 O2 Sat by Pulse Oximetry (%) 100 01/13/17 18:43 Constitutional: Yes: Anxious Eyes: Yes: EOM Intact HENT: Yes: Normocephalic Neck: Yes: Trachea Midline Cardiovascular: Yes: Tachycardia Respiratory: Yes: Rhonchi, SOB, Tachypnea Gastrointestinal: Yes: Normal Bowel Sounds ...Rectal Exam: Yes: Deferred Renal/: Yes: WNL Breast(s): Yes: WNL Musculoskeletal: Yes: Joint Swelling, Muscle Pain, Muscle Weakness Extremities: Yes: Delayed Capillary Refill, Pallor Edema: Yes Edema: LLE: 2+ Peripheral Pulses WNL: No Integumentary: Yes: Onychomycosis, Venous Stasis Changes Wound/Incision: Yes: Draining Neurological: Yes: Alert, Confusion, Numbness, Weakness Assessment/Plan Current Active Problems Bacteremia (Acute) Cellulitis of foot (Acute) Chest pain (Acute) Sepsis (Acute) iddm ckd/diabetic neuropathy uncontrolled hyperglycemia diabetic foot infection Abnormal Lab Results 01/12/17 01/12/17 01/12/17 20:50 20:50 21:55 WBC 31.9 H* D Neutrophils % 90.0 H D Lymphocytes % 2.0 L D Monocytes % 3.0 L ESR ABG pH ABG pO2 at Pt Temp ABG HCO3 ABG Base Excess Sodium Chloride BUN Creatinine Random Glucose Alkaline Phosphatase Ammonia 10.15 L C-Reactive Protein Total Protein Albumin Urine Protein 2+ H Urine Blood 2+ H 01/12/17 01/13/17 01/13/17 22:20 15:00 15:00 WBC Neutrophils % Lymphocytes % Monocytes % ESR 100 H ABG pH ABG pO2 at Pt Temp ABG HCO3 ABG Base Excess Sodium 130 L Chloride 89 L D BUN 79 H D Creatinine 2.5 H D Random Glucose 407 H* D Alkaline Phosphatase 145 H Ammonia C-Reactive Protein 45.2 H D Total Protein 6.0 L Albumin 3.0 L Urine Protein Urine Blood 01/13/17 17:20 WBC Neutrophils % Lymphocytes % Monocytes % ESR ABG pH 7.49 H ABG pO2 at Pt Temp 71.0 L ABG HCO3 28.5 H ABG Base Excess 5.3 H Sodium Chloride BUN Creatinine Random Glucose Alkaline Phosphatase Ammonia C-Reactive Protein Total Protein Albumin Urine Protein Urine Blood Laboratory Tests 12/28/16 01/12/17 01/12/17 13:00 22:20 23:39 Sodium 130 L Potassium 3.6 Chloride 89 L D Carbon Dioxide 29 Anion Gap 12 BUN 79 H D Creatinine 2.5 H D Creat Clearance w eGFR 25.81 POC Glucometer > 400 Hemoglobin A1c % 10.8 H D 01/13/17 06:23 Sodium Potassium Chloride Carbon Dioxide Anion Gap BUN Creatinine Creat Clearance w eGFR POC Glucometer 330 Hemoglobin A1c % Current Medications Generic Name Dose Route Start Last Admin Trade Name Freq PRN Reason Stop Dose Admin Acetaminophen 650 mg 01/13/17 08:00 01/13/17 08:13 Tylenol - PO 650 mg Q6H PRN Administration FEVER OR PAIN Acetaminophen 1,000 mg 01/13/17 17:55 01/13/17 18:13 Ofirmev Injection - IVPB 01/14/17 11:56 1,000 mg Q6H PRN Administration FEVER OR PAIN Aclidinium [place] 1 puff 01/13/17 22:00 Tudorza - IH BID RADHA Albuterol Sulfate 1 amp 01/13/17 12:00 01/13/17 18:55 Ventolin 0.083% Nebulizer Soln - NEB 1 amp QIDR RADHA Administration Aspirin 81 mg 01/14/17 10:00 Ecotrin - PO DAILY RADHA Atorvastatin Calcium 40 mg 01/13/17 22:00 Lipitor - PO HS RADHA Budesonide/Formoterol Fumarate 2 puff 01/13/17 22:00 Symbicort 160/4.5mcg - IH BID RADHA Clopidogrel Bisulfate 75 mg 01/13/17 11:30 01/13/17 11:43 Plavix - PO 75 mg DAILY RADHA Administration Docusate Sodium 100 mg 01/13/17 22:00 Colace - PO BID RADHA Heparin Sodium (Porcine) 5,000 unit 01/13/17 18:00 01/13/17 17:54 Heparin - SQ 5,000 unit Q8H-IV RADHA Administration Hydralazine HCl 10 mg 01/13/17 11:00 01/13/17 11:43 Apresoline - PO 10 mg BID RADHA Administration Sodium Chloride 1,000 mls @ 75 mls/hr 01/13/17 11:15 01/13/17 13:20 Normal Saline - IV 75 mls/hr ASDIR RADHA Administration Piperacillin Sod/Tazobactam Sod 50 mls @ 100 mls/hr 01/13/17 18:00 01/13/17 17: 54 Zosyn 2.25gm Ivpb (Pre-Docked) IVPB 100 mls/hr Q8H-IV RADHA Administration Protocol Clindamycin Phosphate 50 mls @ 100 mls/hr 01/13/17 14:45 01/13/17 17:53 Cleocin 600 Mg Premix Ivpb - IVPB Not Given Q8H-IV RADHA Insulin Aspart 1 vial 01/13/17 11:00 01/13/17 17:01 Novolog Vial Sliding Scale - SQ 10 units ACHS RADHA Administration Protocol Insulin Detemir 50 units 01/13/17 11:00 01/13/17 13:21 Levemir Vial SQ 50 units AM RADHA Administration Insulin Detemir 50 units 01/13/17 22:00 Levemir Vial SQ HS RADHA Lactobacillus Acidophilus 1 tab 01/13/17 12:30 01/13/17 13:18 Bacid - PO 1 tab DAILY RADHA Administration Metoprolol Succinate 50 mg 01/14/17 10:00 Toprol Xl - PO DAILY RADHA Morphine Sulfate 60 mg 01/13/17 14:00 01/13/17 13:19 Ms Contin - PO 60 mg TID RADHA Administration Nicotine 21 mg 01/13/17 14:15 01/13/17 14:24 Nicoderm Patch - TD 21 mg DAILY RADHA Administration Ondansetron HCl 4 mg 01/13/17 11:06 Zofran Injection IVPB Q6H PRN NAUSEA Oxycodone HCl 30 mg 01/13/17 10:51 01/13/17 15:52 Roxicodone - PO 30 mg Q4H PRN Administration PAIN Polyethylene Glycol 17 gm 01/13/17 10:51 Miralax (For Daily Use) - PO BID PRN CONSTIPATION plan: continue bgm qid novolog coverage scale iv antibiotics as per id ivfluid re check bmp
[2017-01-13 19:08] LABS: MCH 28.9 pg (25.7-33.7); MCHC 32.8 g/dl (32.0-35.9); MEAN CELL VOLUME 87.9 fl (80-96); MEAN PLT VOLUME 9.2 fl (7.5-11.1); PLATELET COUNT 262 K/MM3 (134-434); RDW 15.1 % (11.9-15.9)
[2017-01-13 19:17] LABS: WHITE BLOOD COUNT 31.4 K/mm3 (4.0-10.0)
[2017-01-13] MEDS: SODIUM CHLORIDE 1,000 ML IV SCH (19:30)
[2017-01-13 19:53] LABS: ALBUMIN 2.6 g/dl (3.4-5.0); BILIRUBIN,TOTAL 0.7 mg/dL (0.2-1.0); CALCIUM 8.7 mg/dL (8.5-10.1); CREATININE 2.2 mg/dL (0.7-1.3); MAGNESIUM 1.5 mg/dL (1.8-2.4); TOT PROT 5.8 g/dl (6.4-8.2)
[2017-01-13] MEDS ORDERED: MAGNESIUM SULF 50% (8.12 MEQ/2 ML-1 GM VIAL) IVPB ONE (20:16)
--- NOTE | 2017-01-13 20:28 | CONSULT ---
Consult Consult Specialty:: Pulm/CCM Reason for Consultation:: sepsis, hypoxia, dhronic ulcers, cellulitis - History of Present Illness Chief Complaint: SOB, chills, LE pain History of Present Illness: This is a 66yo man PMH: CHF, CAD s/p stents on ASA/plavix, IDDM c/b peripheral neuropathy, PAD s/p LLE stent chronic non healing bilateral ulcers, COPD w/ active tobacco, CKD who presented to ED with fevers, AMS, SOB, worsening LE edema and wound pain. Briefly, he was recently admitted for treatment of LE wounds but left AMA. He was at home with worsening LE pain/edema and developed subjective fever w/ chills c/b SOB prompting ED admission. In the ED labs notable for hyperglycemia (400), acute on chronic renal failure (SCr 2.5), leukocytosis (32) and anemia (5%).. ABX started for LE cellulitis: zosyn/ clinda. CXR w/ PVC. He was placed on NRB for hypoxia and admitted to ICU. AB.49/37/71. Blood cultures positive (pending organism). In the ICU lactate 2.3. ECHO: EF ~55% w/o RWMA. _Patient seen by primary MD and made himself DNR/DNI. 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 No: AFIB Pulmonary: Yes: COPD Gastrointestinal: Yes: Other (Colitis) Renal/: Yes: Renal Inusuff, Other (hyperkalemia) Psych: Yes: Addictions Musculoskeletal: Yes: Other (Lumbar radiculopathy) Endocrine: Yes: Diabetes Mellitus - Past Surgical History Past Surgical History: Yes: Stent - Alcohol/Substance Use Hx Alcohol Use: No History of Substance Use: reports: None - Smoking History Smoking history: Current every day smoker Have you smoked in the past 12 months: Yes Aproximately how many cigarettes per day: 30 If you are a former smoker, when did you quit?: DOWN FROM 5 PACKS DAILY TO 2.5 PACKS DAILY - Social History Usual Living Arrangement: With Spouse ADL: Independent History of Recent Travel: No Home Medications - Allergies Allergies/Adverse Reactions: Allergies Allergy/AdvReac Type Severity Reaction Status Date / Time pantoprazole sodium Allergy Verified 01/13/17 06:26 [From Protonix] - Home Medications Home Medications: Ambulatory Orders Atorvastatin Ca [Lipitor] 40 mg PO HS #0 tablet 02/19/14 Clopidogrel Bisulfate [Plavix -] 75 mg PO DAILY #20 tablet 02/19/14 Aspirin [Ecotrin] 81 mg PO DAILY 04/29/15 Temazepam [Restoril -] 60 mg PO HS 08/24/15 Docusate Sodium [Colace -] 100 mg PO BID capsule 08/26/15 Insulin Aspart [Novolog] 0 unit SQ PRN PRN 01/10/16 Metoprolol Succinate [Toprol XL -] 50 mg PO DAILY 01/10/16 Aclidinium [place] [Tudorza -] 1 inh PO BID 08/13/16 Budesonide/Formeterol Fumarate [SYMBICORT 160/4.5mcg -] 2 inh PO BID 08/13/16 Morphine *Sr* [MS Contin -] 60 mg PO TID 08/13/16 Albuterol 0.083% Nebulizer Clarisse [Ventolin 0.083% Nebulizer Soln -] 1 amp NEB QIDR amp 08/14/16 Hydralazine HCl [Apresoline -] 10 mg PO BID #180 tablet 08/14/16 Insulin (Levemir) [Levemir Vial] 50 unit SQ AM #0 08/14/16 Insulin (Levemir) [Levemir Vial] 50 units SQ HS ml 08/14/16 Morphine *Sr* [MS Contin -] 60 mg PO TID #90 tablet.sa MDD 3 08/14/16 Oxycodone HCl [Roxicodone -] 30 mg PO Q4H PRN #0 tablet MDD 6 08/14/16 Polyethylene Glycol 3350 [Miralax 119 gm Btl -] 17 gm PO BID PRN #0 bottle 08/14 Torsemide [Demadex -] 40 mg PO DAILY #180 tablet 08/14/16 Family Disease History - Family Disease History Family Disease History: Diabetes: Grandparent, Sister (COPD), CA: Father, Respiratory: Sister, Other: Mother (CVA) Review of Systems - Review of Systems Constitutional: reports: Chills, Fever, Lethargy Cardiovascular: reports: Edema Respiratory: reports: SOB Integumentary: reports: Wound (chronic bilat LE with increased pain) Physical Exam Vital Signs: Vital Signs Temperature 102.8 F H 01/13/17 19:00 Pulse Rate 101 H 01/13/17 19:00 Respiratory Rate 40 H 01/13/17 19:00 Blood Pressure 111/67 01/13/17 19:00 O2 Sat by Pulse Oximetry (%) 100 01/13/17 18:43 Active Medications Acetaminophen (Ofirmev Injection -) 1,000 mg IVPB Q6H PRN PRN Reason: FEVER OR PAIN Stop: 01/14/17 11:56 Last Admin: 01/13/17 18:13 Dose: 1,000 mg Acetaminophen (Tylenol -) 650 mg PO Q6H PRN PRN Reason: FEVER OR PAIN Aclidinium [place] (Tudorza -) 1 puff IH BID [facility] Albuterol Sulfate (Ventolin 0.083% Nebulizer Soln -) 1 amp NEB QIDR [facility] Aspirin (Ecotrin -) 81 mg PO DAILY [facility] Atorvastatin Calcium (Lipitor -) 40 mg PO HS [facility] Budesonide/Formoterol Fumarate (Symbicort 160/4.5mcg -) 2 puff IH BID [facility] Clopidogrel Bisulfate (Plavix -) 75 mg PO DAILY [facility] Docusate Sodium (Colace -) 100 mg PO BID [facility] Heparin Sodium (Porcine) (Heparin -) 5,000 unit SQ TID [facility] Hydralazine HCl (Apresoline -) 10 mg PO BID [facility] Clindamycin Phosphate (Cleocin 600 Mg Premix Ivpb -) 50 mls @ 100 mls/hr IVPB Q8H-IV [facility] Sodium Chloride (Normal Saline -) 1,000 mls @ 75 mls/hr IV ASDIR [facility] Piperacillin Sod/Tazobactam Sod (Zosyn 2.25gm Ivpb (Pre-Docked)) 50 mls @ 100 mls/hr IVPB Q8H-IV [facility] PRN Reason: Protocol Insulin Aspart (Novolog Vial Sliding Scale -) 1 vial SQ ACHS [facility] PRN Reason: Protocol Insulin Detemir (Levemir Vial) 50 units SQ HS [facility] Insulin Detemir (Levemir Vial) 50 units SQ AM [facility] Lactobacillus Acidophilus (Bacid -) 1 tab PO DAILY [facility] Metoprolol Succinate (Toprol Xl -) 50 mg PO DAILY [facility] Nicotine (Nicoderm Patch -) 21 mg TD DAILY [facility] Ondansetron HCl (Zofran Injection) 4 mg IVPB Q6H PRN PRN Reason: NAUSEA Oxycodone HCl (Roxicodone -) 30 mg PO Q4H PRN PRN Reason: PAIN Polyethylene Glycol (Miralax (For Daily Use) -) 17 gm PO BID PRN PRN Reason: CONSTIPATION Potassium Phos/Sodium Phos (Phos-Nak Packet -) 2 packet PO TID [facility] Stop: 01/15/17 06:01 Constitutional: Yes: Calm, Mild Distress Cardiovascular: Yes: Regular Rate and Rhythm, S1, S2 Respiratory: Yes: Rales Gastrointestinal: Yes: Normal Bowel Sounds, Soft, Abdomen, Obese Edema: Yes Edema: LLE: 2+, RLE: 2+ Integumentary: Yes: Venous Stasis Changes (bilateral wounds with eschar, warm red erryhtemia L>R) Neurological: Yes: Alert, Lethargy Psychiatric: Yes: Alert, Oriented Labs: CBC, BMP 01/13/17 18:45 01/13/17 18:45 Urine Test Results Urine Color Ltyellow 01/12/17 21:55 Urine Appearance Clear 01/12/17 21:55 Urine pH 5.0 (5.0-8.0) 01/12/17 21:55 Ur Specific [place] 1.013 (1.001-1.035) 01/12/17 21:55 Urine Protein 2+ (NEGATIVE) H 01/12/17 21:55 Urine Glucose (UA) Negative (NEGATIVE) 01/12/17 21:55 Urine Ketones Negative (NEGATIVE) 01/12/17 21:55 Urine Blood 2+ (NEGATIVE) H 01/12/17 21:55 Urine Nitrite Negative (NEGATIVE) 01/12/17 21:55 Urine Bilirubin Negative (NEGATIVE) 01/12/17 21:55 Ur Leukocyte Esterase Negative (NEGATIVE) 01/12/17 21:55 Urine RBC 7 /hpf (0-3) 01/12/17 21:55 Urine WBC 3 /hpf (3-5) 01/12/17 21:55 Ur Epithelial Cells Rare /hpf (FEW) 01/12/17 21:55 Urine Bacteria Rare /hpf (NONE SEEN) 01/12/17 21:55 Microbiology 01/12/17 21:40 Blood - Peripheral Venous Blood Culture - Preliminary Pending Organism 01/12/17 21:40 Blood - Peripheral Venous Blood Culture - Preliminary Pending Organism Laboratory Tests 01/13/17 01/13/17 15:00 18:45 ESR 100 H Lactic Acid 2.344 H* Imaging - Results Chest X-ray: Report Reviewed, Image Reviewed Other: Other (ECHO: EF 55%, no RMWA, no vegiations, reviewed) Problem List - Problems (1) Bacteremia Code(s): R78.81 - BACTEREMIA (2) Cellulitis of foot Code(s): L03.119 - CELLULITIS OF UNSPECIFIED PART OF LIMB (3) Sepsis Code(s): A41.9 - SEPSIS, UNSPECIFIED ORGANISM (4) CAD (coronary artery disease) Code(s): I25.10 - ATHSCL HEART DISEASE OF [place] CORONARY ARTERY W/O ANG PCTRS Qualifiers: Coronary Disease-Associated Artery/Lesion type: unspecified vessel or lesion type [place] vs. transplanted heart: [place] heart Associated angina: with stable angina Qualified Code(s): I25.118 - Atherosclerotic heart disease of [place] coronary artery with other forms of angina pectoris (5) CKD (chronic kidney disease) Code(s): N18.9 - CHRONIC KIDNEY DISEASE, UNSPECIFIED (6) COPD (chronic obstructive pulmonary disease) Code(s): J44.9 - CHRONIC OBSTRUCTIVE PULMONARY DISEASE, UNSPECIFIED Qualifiers : COPD type: unspecified COPD Qualified Code(s): J44.9 - Chronic obstructive pulmonary disease, unspecified (7) Cellulitis Code(s): L03.90 - CELLULITIS, UNSPECIFIED Qualifiers: Site of cellulitis: extremity Site of cellulitis of extremity: lower extremity Laterality: left Qualified Code(s): L03.116 - Cellulitis of left lower limb (8) Diabetes mellitus Code(s): E11.9 - TYPE 2 DIABETES MELLITUS WITHOUT COMPLICATIONS Qualifiers: Diabetes mellitus type: type 1 Diabetes mellitus complication status: with hyperglycemia Qualified Code(s): E10.65 - Type 1 diabetes mellitus with hyperglycemia (9) Diabetic foot ulcer Code(s): E11.621 - TYPE 2 DIABETES MELLITUS WITH FOOT ULCER L97.509 - NON-PRESSURE CHRONIC ULCER OTH PRT UNSP FOOT W UNSP SEVERITY (10) Renal failure (ARF), acute on chronic Code(s): N17.9 - ACUTE KIDNEY FAILURE, UNSPECIFIED N18.9 - CHRONIC KIDNEY DISEASE, UNSPECIFIED Assessment/Plan This is a 66 yo man MMP: COPD, active tobacco, CAD/CHF s/p stents, PVD s/p stent c/b chronic non healing bilateral LE ulcer now with recurrent LE cellulitis c/f osteomyelitis and acute on chronic renal failure -ID following cont ABX: zosyn/clinda -MRI LE to eval for osteo -Renal consult -renal dose all medications -IV fluids -cont ASA/plavix -cont anti-HTN meds -O2 for sat >88% -cont bronchodilators -f/u mcdowell cultures -send urine lytes -cont insulin -diabetic diet -pain control -DNR/DNI Juan David GOODEP Pulm/CCM CCT: 35m
[2017-01-13 21:01] LABS: PLATELET ESTIMATE ADEQUATE (NORMAL)
[2017-01-13] MEDS ORDERED: ATORVASTATIN CA 40 MG TABLET (FP) PO SCH (22:00)
[2017-01-13] MEDS ORDERED: BUDESONIDE/FORMETEROL FUMARATE 160/4.5 mcg INHALER IH SCH (22:00)
[2017-01-13] MEDS ORDERED: TEMAZEPAM 15 MG CAPSULE PO SCH (22:00)
[2017-01-13] MEDS ORDERED: DOCUSATE SODIUM 100 MG CAPSULE (FP) PO SCH (22:00)
[2017-01-13] MEDS ORDERED: ACLIDINIUM BROMIDE 400 MCG/INH AERO.POWD IH SCH (22:00)
[2017-01-13] MEDS: DOCUSATE SODIUM 100 MG CAPSULE (FP) PO SCH (22:19)
[2017-01-13] MEDS: HEPARIN NA (PORCINE) 5,000 UNITS/ML 1ML VIAL SQ SCH (22:19)
[2017-01-13] MEDS: hydrALAZINE HCL 10 MG TABLET PO SCH (22:19)
[2017-01-13] MEDS: BUDESONIDE/FORMETEROL FUMARATE 160/4.5 mcg INHALER IH SCH (22:20)
[2017-01-13] MEDS: ATORVASTATIN CA 40 MG TABLET (FP) PO SCH (22:20)
[2017-01-13] MEDS: NAPH,MB-DB/K PH,MBDB POWDER PACKET PO SCH (22:20)
[2017-01-13] MEDS: ACLIDINIUM BROMIDE 400 MCG/INH AERO.POWD IH SCH (22:21)
[2017-01-13] MEDS: INSULIN DETEMIR 100 UNITS/ML MDV SQ SCH (22:41)
[2017-01-14] MEDS: PIPERACILLIN/TAZOB 2.25 GM 50 ML IVPB SCH ×2 (02:00→09:42)
[2017-01-14] MEDS: CLINDAMYCIN 600MG PREMIX IVPB 50 ML IVPB SCH ×2 (02:00→09:11)
[2017-01-14 05:59] LABS: MCHC 33.3 g/dl (32.0-35.9); MEAN CELL VOLUME 87.2 fl (80-96); MEAN PLT VOLUME 9.2 fl (7.5-11.1); PLATELET COUNT 256 K/MM3 (134-434); RDW 14.9 % (11.9-15.9); WHITE BLOOD COUNT 27.4 K/mm3 (4.0-10.0)
[2017-01-14] MEDS: HEPARIN NA (PORCINE) 5,000 UNITS/ML 1ML VIAL SQ SCH ×3 (06:05→21:21)
[2017-01-14] MEDS: NAPH,MB-DB/K PH,MBDB POWDER PACKET PO SCH ×3 (06:05→21:21)
[2017-01-14] MEDS: ALBUTEROL SO4 0.083% IH SOL 2.5 MG/3 ML VIAL.NEB. NEB SCH ×3 (06:30→17:00)
[2017-01-14 06:35] LABS: CALCIUM 8.2 mg/dL (8.5-10.1); CREATININE 2.1 mg/dL (0.7-1.3); MAGNESIUM 2.3 mg/dL (1.8-2.4); PHOSPHOROUS 3.9 mg/dL (2.5-4.9)
[2017-01-14] MEDS: INSULIN DETEMIR 100 UNITS/ML MDV SQ SCH ×2 (06:57→21:40)
[2017-01-14] MEDS: INSULIN SLIDING SCALE (NOVOLOG) 1 VIAL SQ SCH ×4 (06:59→21:40)
[2017-01-14 07:45] LABS: ARTERIAL BLD GAS O2 SATURATION 93.4 % (90-98.9); ARTERIAL BLOOD GAS HCO3 30.1 meq/L (22-26); ARTERIAL BLOOD GAS pH 7.41 (7.35-7.45)
[2017-01-14 07:48] LABS: ALLENS TEST POSITIVE; ART PUNCT SITE RIGHT RADIAL
[2017-01-14 07:49] LABS: LPM/O2% 70%; MECH. VENT. BIPAP; PT. ON O2? YES; TYPE OF O2 BIPAP
[2017-01-14 07:50] LABS: ARTERIAL BLOOD GAS PO2 70.3 mmHg (80-100); VENT RATE 14; VT/PRESS IPAP 12/EPAP 5
[2017-01-14] MEDS: KCL 10 MEQ IVPB 100 ML IVPB SCH ×3 (08:56→12:25)
[2017-01-14] MEDS ORDERED: PT OWN MED DRAWER 7, Y5N ONE ×2 (09:05→21:07)
[2017-01-14] MEDS: LACTOBACILLUS ACIDOPHILUS 1 EACH TAB (FP) PO SCH (09:08)
[2017-01-14] MEDS: hydrALAZINE HCL 10 MG TABLET PO SCH ×2 (09:08→21:21)
[2017-01-14] MEDS: DOCUSATE SODIUM 100 MG CAPSULE (FP) PO SCH ×2 (09:09→21:21)
[2017-01-14] MEDS: ASPIRIN COATED 81 MG TABLET.EC PO SCH (09:09)
[2017-01-14] MEDS: CLOPIDOGREL BISULFATE 75 MG TABLET (FP) PO SCH (09:10)
[2017-01-14] MEDS: METOPROLOL SUCCINATE 50 MG TAB.SR.24H (FP) PO SCH (09:10)
[2017-01-14] MEDS: NICOTINE 21 MG/24 HOURS TOPICAL PATCH TD SCH (09:11)
[2017-01-14] MEDS: oxyCODONE HCL 5 MG TABLET PO PRN ×4 (09:41→22:11)
[2017-01-14] MEDS: BUDESONIDE/FORMETEROL FUMARATE 160/4.5 mcg INHALER IH SCH ×2 (09:45→21:23)
[2017-01-14] MEDS: ACLIDINIUM BROMIDE 400 MCG/INH AERO.POWD IH SCH ×2 (09:46→21:23)
--- NOTE | 2017-01-14 09:53 | PN ---
Progress Note (short form) - Note Progress Note: PULMONARY/CCM Pt seen and examined in the ICU. Remains on NRB, feels congested with nonproductive cough. Fever curve trending down. Last Vital Signs Temp Pulse Resp BP Pulse Ox 99.1 F 90 28 H 152/69 99 01/14/17 08:00 01/14/17 08:00 01/14/17 08:00 01/14/17 08:00 01/14/17 07:17 Intake & Output 01/11/17 01/12/17 01/13/17 01/14/17 23:59 23:59 23:59 23:59 Intake Total 300 1050 Output Total 50 1800 600 Balance -50 -1500 450 Weight 190 lb 196 lb 9.6 oz 197 lb Gen: mildly tachypneic at rest Heart: RRR Lung: bilateral rhonchi, wheezes Abd: soft, nontender Ext: no edema, areas of toe dry necrosis CBC, BMP 01/14/17 05:00 01/14/17 05:00 Active Medications Acetaminophen (Ofirmev Injection -) 1,000 mg IVPB Q6H PRN PRN Reason: FEVER OR PAIN Stop: 01/14/17 11:56 Last Admin: 01/13/17 18:13 Dose: 1,000 mg Acetaminophen (Tylenol -) 650 mg PO Q6H PRN PRN Reason: FEVER OR PAIN Aclidinium [place] (Tudorza -) 1 puff IH BID [facility] Last Admin: 01/13/17 22:21 Dose: 1 puff Albuterol Sulfate (Ventolin 0.083% Nebulizer Soln -) 1 amp NEB QIDR [facility] Last Admin: 01/14/17 06:30 Dose: 1 amp Aspirin (Ecotrin -) 81 mg PO DAILY [facility] Last Admin: 01/14/17 09:09 Dose: 81 mg Atorvastatin Calcium (Lipitor -) 40 mg PO HS [facility] Last Admin: 01/13/17 22:20 Dose: 40 mg Budesonide/Formoterol Fumarate (Symbicort 160/4.5mcg -) 2 puff IH BID [facility] Last Admin: 01/13/17 22:20 Dose: 2 puff Clopidogrel Bisulfate (Plavix -) 75 mg PO DAILY [facility] Last Admin: 01/14/17 09:10 Dose: 75 mg Docusate Sodium (Colace -) 100 mg PO BID [facility] Last Admin: 01/14/17 09:09 Dose: 100 mg Heparin Sodium (Porcine) (Heparin -) 5,000 unit SQ TID [facility] Last Admin: 01/14/17 06:05 Dose: 5,000 unit Hydralazine HCl (Apresoline -) 10 mg PO BID [facility] Last Admin: 01/14/17 09:08 Dose: 10 mg Clindamycin Phosphate (Cleocin 600 Mg Premix Ivpb -) 50 mls @ 100 mls/hr IVPB Q8H-IV [facility] Last Admin: 01/14/17 09:11 Dose: 100 mls/hr Sodium Chloride (Normal Saline -) 1,000 mls @ 75 mls/hr IV ASDIR [facility] Last Admin: 01/13/17 19:30 Dose: 75 mls/hr Piperacillin Sod/Tazobactam Sod (Zosyn 2.25gm Ivpb (Pre-Docked)) 50 mls @ 100 mls/hr IVPB Q8H-IV [facility] PRN Reason: Protocol Last Admin: 01/14/17 02:00 Dose: 100 mls/hr Potassium Chloride (Potassium Chloride 10 Meq Premix Ivpb -) 100 mls @ 100 mls/ hr IVPB Q60M [facility] Stop: 01/14/17 11:44 Last Admin: 01/14/17 08:56 Dose: 100 mls/hr Insulin Aspart (Novolog Vial Sliding Scale -) 1 vial SQ ACHS [facility] PRN Reason: Protocol Last Admin: 01/14/17 06:59 Dose: Not Given Insulin Detemir (Levemir Vial) 50 units SQ HS [facility] Last Admin: 01/13/17 22:41 Dose: 50 units Insulin Detemir (Levemir Vial) 50 units SQ AM [facility] Last Admin: 01/14/17 06:57 Dose: 50 units Lactobacillus Acidophilus (Bacid -) 1 tab PO DAILY [facility] Last Admin: 01/14/17 09:08 Dose: 1 tab Metoprolol Succinate (Toprol Xl -) 50 mg PO DAILY [facility] Last Admin: 01/14/17 09:10 Dose: 50 mg Nicotine (Nicoderm Patch -) 21 mg TD DAILY [facility] Last Admin: 01/14/17 09:11 Dose: 21 mg Ondansetron HCl (Zofran Injection) 4 mg IVPB Q6H PRN PRN Reason: NAUSEA Oxycodone HCl (Roxicodone -) 30 mg PO Q4H PRN PRN Reason: PAIN Polyethylene Glycol (Miralax (For Daily Use) -) 17 gm PO BID PRN PRN Reason: CONSTIPATION Potassium Phos/Sodium Phos (Phos-Nak Packet -) 2 packet PO TID [facility] Stop: 01/15/17 06:01 Last Admin: 01/14/17 06:05 Dose: 2 packet A/P MRSA Bacteremia Cellulitis r/o Osteomyelitis Severe Sepsis Lactic Acidosis Acute on Chronic Renal Failure Acute Hypoxic Respiratory Failure Acute COPD Exacerbation CAD s/p stents PAD DM Smoker - continue antibiotics - f/u cultures - wound care - MRI foot - taper FiO2 to keep SpO2 >90% - inhaled bronchodilators - if no improvement in lung exam, will start steroids - IVF - trend lactate - replete lytes - ASA, plavix - DVT prophylaxis
[2017-01-14] MEDS ORDERED: ASPIRIN COATED 81 MG TABLET.EC PO SCH (10:00)
[2017-01-14] MEDS ORDERED: METOPROLOL SUCCINATE 25 MG TAB.SR.24H (FP) PO SCH (10:00)
[2017-01-14] MEDS ORDERED: TORSEMIDE 20 MG TABLET (FP) PO SCH (10:00)
--- NOTE | 2017-01-14 10:42 | PN ---
Progress Note, Physician History of Present Illness: Patient complains of being uncomfortable. Otherwise, fever has been decreasing. Feels congested in chest, but less short of breath than yesterday. - Current Medication List Current Medications: Active Medications Acetaminophen (Ofirmev Injection -) 1,000 mg IVPB Q6H PRN PRN Reason: FEVER OR PAIN Stop: 01/14/17 11:56 Last Admin: 01/13/17 18:13 Dose: 1,000 mg Acetaminophen (Tylenol -) 650 mg PO Q6H PRN PRN Reason: FEVER OR PAIN Aclidinium [place] (Tudorza -) 1 puff IH BID [facility] Last Admin: 01/14/17 09:46 Dose: 1 puff Albuterol Sulfate (Ventolin 0.083% Nebulizer Soln -) 1 amp NEB QIDR [facility] Last Admin: 01/14/17 06:30 Dose: 1 amp Aspirin (Ecotrin -) 81 mg PO DAILY [facility] Last Admin: 01/14/17 09:09 Dose: 81 mg Atorvastatin Calcium (Lipitor -) 40 mg PO HS [facility] Last Admin: 01/13/17 22:20 Dose: 40 mg Budesonide/Formoterol Fumarate (Symbicort 160/4.5mcg -) 2 puff IH BID [facility] Last Admin: 01/14/17 09:45 Dose: 2 puff Clopidogrel Bisulfate (Plavix -) 75 mg PO DAILY [facility] Last Admin: 01/14/17 09:10 Dose: 75 mg Docusate Sodium (Colace -) 100 mg PO BID [facility] Last Admin: 01/14/17 09:09 Dose: 100 mg Heparin Sodium (Porcine) (Heparin -) 5,000 unit SQ TID [facility] Last Admin: 01/14/17 06:05 Dose: 5,000 unit Hydralazine HCl (Apresoline -) 10 mg PO BID [facility] Last Admin: 01/14/17 09:08 Dose: 10 mg Clindamycin Phosphate (Cleocin 600 Mg Premix Ivpb -) 50 mls @ 100 mls/hr IVPB Q8H-IV [facility] Last Admin: 01/14/17 09:11 Dose: 100 mls/hr Sodium Chloride (Normal Saline -) 1,000 mls @ 75 mls/hr IV ASDIR [facility] Last Admin: 01/13/17 19:30 Dose: 75 mls/hr Piperacillin Sod/Tazobactam Sod (Zosyn 2.25gm Ivpb (Pre-Docked)) 50 mls @ 100 mls/hr IVPB Q8H-IV [facility] PRN Reason: Protocol Last Admin: 01/14/17 09:42 Dose: 100 mls/hr Potassium Chloride (Potassium Chloride 10 Meq Premix Ivpb -) 100 mls @ 100 mls/ hr IVPB Q60M [facility] Stop: 01/14/17 11:44 Last Admin: 01/14/17 10:28 Dose: 100 mls/hr Insulin Aspart (Novolog Vial Sliding Scale -) 1 vial SQ ACHS [facility] PRN Reason: Protocol Last Admin: 01/14/17 06:59 Dose: Not Given Insulin Detemir (Levemir Vial) 50 units SQ HS [facility] Last Admin: 01/13/17 22:41 Dose: 50 units Insulin Detemir (Levemir Vial) 50 units SQ AM [facility] Last Admin: 01/14/17 06:57 Dose: 50 units Lactobacillus Acidophilus (Bacid -) 1 tab PO DAILY [facility] Last Admin: 01/14/17 09:08 Dose: 1 tab Metoprolol Succinate (Toprol Xl -) 50 mg PO DAILY [facility] Last Admin: 01/14/17 09:10 Dose: 50 mg Nicotine (Nicoderm Patch -) 21 mg TD DAILY [facility] Last Admin: 01/14/17 09:11 Dose: 21 mg Ondansetron HCl (Zofran Injection) 4 mg IVPB Q6H PRN PRN Reason: NAUSEA Oxycodone HCl (Roxicodone -) 30 mg PO Q4H PRN PRN Reason: PAIN Last Admin: 01/14/17 09:41 Dose: 30 mg Polyethylene Glycol (Miralax (For Daily Use) -) 17 gm PO BID PRN PRN Reason: CONSTIPATION Potassium Chloride (K-Dur -) 40 meq PO Q4H [facility] Stop: 01/14/17 14:01 Potassium Phos/Sodium Phos (Phos-Nak Packet -) 2 packet PO TID [facility] Stop: 01/15/17 06:01 Last Admin: 01/14/17 06:05 Dose: 2 packet - Objective Vital Signs: Vital Signs Temperature 99.1 F 01/14/17 08:00 Pulse Rate 85 01/14/17 10:36 Respiratory Rate 28 H 01/14/17 08:00 Blood Pressure 152/69 01/14/17 08:00 O2 Sat by Pulse Oximetry (%) 100 01/14/17 10:36 Constitutional: Yes: Calm, Mild Distress (due to pain) Neck: Yes: Supple, Trachea Midline Cardiovascular: Yes: Regular Rate and Rhythm, S1, S2. No: Murmur Respiratory: Yes: Regular, Rhonchi (b/l bases) Gastrointestinal: Yes: Normal Bowel Sounds, Soft, Abdomen, Obese. No: Distention, Tenderness Extremities: Yes: Other (bilateral ulcerastions on toes, medial left foot) Edema: No Neurological: Yes: Alert, Oriented Labs: CBC, BMP 01/14/17 05:00 01/14/17 05:00 Assessment/Plan Current Active Problems Bacteremia (Acute) Cellulitis of foot (Acute) Chest pain (Acute) Sepsis (Acute) acute on Chronic renal insufficiency CAD ischemic cardiomyopathy chronic back/ joint pain Diabetes Mellitus with diabetic neuropathy COPD tobacco use disorder h/o colitis h/o [place] h/o CVA -cont abx -further eval, when stable, of feet ulcers for osteomyelitis -cont pain meds (long-standing chronic narcotic use for back and joint pain)
[2017-01-14] MEDS: POTASSIUM CHLORIDE TABS 20 MEQ TABLET.ER (FP) PO SCH ×2 (12:25→14:15)
[2017-01-14] MEDS ORDERED: INSULIN (NOVOLOG) ASPART 100 UNITS/ML 10ML VIAL ONE (12:45)
--- NOTE | 2017-01-14 13:38 | PN ---
Progress Note, Physician History of Present Illness: events noted from yesterday patient went into resp distress transferred to icu currently patient on ventimask - Current Medication List Current Medications: Active Medications Acetaminophen (Tylenol -) 650 mg PO Q6H PRN PRN Reason: FEVER OR PAIN Aclidinium [place] (Tudorza -) 1 puff IH BID [facility] Last Admin: 01/14/17 09:46 Dose: 1 puff Albuterol Sulfate (Ventolin 0.083% Nebulizer Soln -) 1 amp NEB QIDR [facility] Last Admin: 01/14/17 11:33 Dose: 1 amp Aspirin (Ecotrin -) 81 mg PO DAILY [facility] Last Admin: 01/14/17 09:09 Dose: 81 mg Atorvastatin Calcium (Lipitor -) 40 mg PO HS [facility] Last Admin: 01/13/17 22:20 Dose: 40 mg Budesonide/Formoterol Fumarate (Symbicort 160/4.5mcg -) 2 puff IH BID [facility] Last Admin: 01/14/17 09:45 Dose: 2 puff Clopidogrel Bisulfate (Plavix -) 75 mg PO DAILY [facility] Last Admin: 01/14/17 09:10 Dose: 75 mg Docusate Sodium (Colace -) 100 mg PO BID [facility] Last Admin: 01/14/17 09:09 Dose: 100 mg Heparin Sodium (Porcine) (Heparin -) 5,000 unit SQ TID [facility] Last Admin: 01/14/17 06:05 Dose: 5,000 unit Hydralazine HCl (Apresoline -) 10 mg PO BID [facility] Last Admin: 01/14/17 09:08 Dose: 10 mg Clindamycin Phosphate (Cleocin 600 Mg Premix Ivpb -) 50 mls @ 100 mls/hr IVPB Q8H-IV [facility] Last Admin: 01/14/17 09:11 Dose: 100 mls/hr Sodium Chloride (Normal Saline -) 1,000 mls @ 75 mls/hr IV ASDIR [facility] Last Admin: 01/13/17 19:30 Dose: 75 mls/hr Piperacillin Sod/Tazobactam Sod (Zosyn 2.25gm Ivpb (Pre-Docked)) 50 mls @ 100 mls/hr IVPB Q8H-IV [facility] PRN Reason: Protocol Last Admin: 01/14/17 09:42 Dose: 100 mls/hr Insulin Aspart (Novolog Vial Sliding Scale -) 1 vial SQ ACHS [facility] PRN Reason: Protocol Last Admin: 01/14/17 12:47 Dose: 4 units Insulin Detemir (Levemir Vial) 50 units SQ HS [facility] Last Admin: 01/13/17 22:41 Dose: 50 units Insulin Detemir (Levemir Vial) 50 units SQ AM [facility] Last Admin: 01/14/17 06:57 Dose: 50 units Lactobacillus Acidophilus (Bacid -) 1 tab PO DAILY [facility] Last Admin: 01/14/17 09:08 Dose: 1 tab Metoprolol Succinate (Toprol Xl -) 50 mg PO DAILY [facility] Last Admin: 01/14/17 09:10 Dose: 50 mg Nicotine (Nicoderm Patch -) 21 mg TD DAILY [facility] Last Admin: 01/14/17 09:11 Dose: 21 mg Ondansetron HCl (Zofran Injection) 4 mg IVPB Q6H PRN PRN Reason: NAUSEA Oxycodone HCl (Roxicodone -) 30 mg PO Q4H PRN PRN Reason: PAIN Last Admin: 01/14/17 09:41 Dose: 30 mg Polyethylene Glycol (Miralax (For Daily Use) -) 17 gm PO BID PRN PRN Reason: CONSTIPATION Potassium Chloride (K-Dur -) 40 meq PO Q4H [facility] Stop: 01/14/17 14:01 Last Admin: 01/14/17 12:25 Dose: 40 meq Potassium Phos/Sodium Phos (Phos-Nak Packet -) 2 packet PO TID [facility] Stop: 01/15/17 06:01 Last Admin: 01/14/17 06:05 Dose: 2 packet - Objective Vital Signs: Vital Signs Temperature 99.1 F 01/14/17 08:00 Pulse Rate 85 01/14/17 10:36 Respiratory Rate 28 H 01/14/17 08:00 Blood Pressure 152/69 01/14/17 08:00 O2 Sat by Pulse Oximetry (%) 100 01/14/17 10:36 Constitutional: Yes: Calm, Mild Distress Cardiovascular: Yes: Regular Rate and Rhythm Respiratory: Yes: Poor Air Entry, Rhonchi, Wheezes Gastrointestinal: Yes: Normal Bowel Sounds, Soft Musculoskeletal: Yes: Other Extremities: Yes: Other (no changes in the wound status) Neurological: Yes: Alert, Oriented Psychiatric: Yes: Alert, Oriented Labs: CBC, BMP 01/14/17 05:00 01/14/17 05:00 Assessment/Plan This patient treated couple of days back with cefazolin and flagyl now comes with fulminant infection and in sepsis with gram positive bacteremia i have a strong suspicion that now it might be a resistant organism I dont know how many days he was treated from last infection and how it was done. He has got vanco and zosyn he has very bad kidneys,but he also has severe infection and needs to be covered agree with the patient getting echo also patient leg does not look good and i am worried about deep seated infection Imaging - Results Chest X-ray: Report Reviewed, Image Reviewed Problem List - Problems (1) Sepsis Code(s): A41.9 - SEPSIS, UNSPECIFIED ORGANISM (2) Diabetic foot ulcer Code(s): E11.621 - TYPE 2 DIABETES MELLITUS WITH FOOT ULCER L97.509 - NON-PRESSURE CHRONIC ULCER OTH PRT UNSP FOOT W UNSP SEVERITY (3) Cellulitis of foot Code(s): L03.119 - CELLULITIS OF UNSPECIFIED PART OF LIMB (4) Renal failure (ARF), acute on chronic Code(s): N17.9 - ACUTE KIDNEY FAILURE, UNSPECIFIED N18.9 - CHRONIC KIDNEY DISEASE, UNSPECIFIED (5) CAD (coronary artery disease) Code(s): I25.10 - ATHSCL HEART DISEASE OF [place] CORONARY ARTERY W/O ANG PCTRS Qualifiers: Coronary Disease-Associated Artery/Lesion type: unspecified vessel or lesion type [place] vs. transplanted heart: [place] heart Associated angina: with stable angina Qualified Code(s): I25.119 - Atherosclerotic heart disease of [place] coronary artery with unspecified angina pectoris (6) COPD (chronic obstructive pulmonary disease) Code(s): J44.9 - CHRONIC OBSTRUCTIVE PULMONARY DISEASE, UNSPECIFIED Qualifiers : COPD type: unspecified COPD Qualified Code(s): J44.9 - Chronic obstructive pulmonary disease, unspecified (7) Chronic pain Code(s): G89.29 - OTHER CHRONIC PAIN (8) Diabetes mellitus Code(s): E11.9 - TYPE 2 DIABETES MELLITUS WITHOUT COMPLICATIONS Qualifiers: Diabetes mellitus type: type 1 Diabetes mellitus complication status: with hyperglycemia Qualified Code(s): E10.65 - Type 1 diabetes mellitus with hyperglycemia (9) Hyperlipidemia Code(s): E78.5 - HYPERLIPIDEMIA, UNSPECIFIED (10) Hypertension Code(s): I10 - ESSENTIAL (PRIMARY) HYPERTENSION (11) Tobacco abuse Code(s): Z72.0 - TOBACCO USE mrsa plan i am going to send vanco random will have to give him vanco or might switch to ceftorline will await for levels continue current abx will martinaesbraulio lopez cc time 4o min spoke with detail with the family
--- NOTE | 2017-01-14 14:02 | CONSULT ---
Consult - text type - Consultation Consultation Note: Podiatry Consultation: 66 year old M, complicated medical history of DM, HTN, HLP, COPD, CAD s/p stent , CVA, PVD s/p LLE angiogram, presents to the hospital for worsening DM foot ulcers and cellulitis. Patient was recently admitted and left AMA, shortly after his condition worsened. Denies fevers/chills at home. Does report worsening respiratory symptoms as well. Noted increased redness/swelling to the left foot particularly. Does have a wound on his R great toe. Recently had angiogram performed, severe disease with one vessel run-off, however no further intervention. He has a history of smoking 3PPD x 40 years. Currently has low grade fever to 99F. PMHx: DM, HTN, HLP, COPD, CAD s/p stent, PVD s/p LLE angiogram, CVA, uncontrolled IDDM, (+) smoking 3 PPD x 40 years Meds: noted in chart ALL: pantoprazole ZION: L foot: pedal pulses non-palpable, TG warm-warmer, CFT delayed to 2nd toe. There is a necrotic ulcer on the dorsal IPJ of the second toe. There is surrounding erythema to the forefoot. There is swelling to the forefoot. There is no soft tissue crepitus, no purulence, no fluctuance, no lymphangitis. There is a superficial eschar noted on the medial aspect of the arch. R foot: pedal pulses non-palpable, TG wnl. There is a superficial eschar at the distal tuft of the great toe. There is no drainage, no purulence, no fluctuance, no soft tissue crepitus, no signs of active infection. WBC: 27.4 Blood Cx: MRSA ESR: 100 L foot XR 3/2: vascular calcifications L foot XR current admission: pending Imp: 66 year old DM, PVD M with L 2nd toe necrotic ulcer and cellulitis 1. C/w IV abx per ID 2. Need further imaging to determine extent of infection. Unfortunately cannot obtain MRI given patient's medical history. Will have to obtain CT scan. 3. Clinically, does not appear to be gas-forming infection. However, given patient's clinical appearance will need second toe amputation. Unfortunately patient is not medically stable at this time for any procedure. 4. Once patient is medically stabilized will need second toe amputation. 5. Will closely follow. Nadege Velez DPM
[2017-01-14 14:12] LABS: PLATELET COMMENT2 NO CLOTTING DETECTED; PLATELET ESTIMATE ADEQUATE (NORMAL)
[2017-01-14] MEDS ORDERED: VANCOMYCIN 1,500 MG in DEXTROSE 5%-WATER - 500 ML IVPB SCH (15:00)
[2017-01-14] MEDS: ATORVASTATIN CA 40 MG TABLET (FP) PO SCH (21:21)
[2017-01-14] MEDS: SODIUM CHLORIDE 1,000 ML IV SCH (21:23)
[2017-01-14] MEDS: ACETAMINOPHEN 325 MG TABLET (FP) PO PRN (22:11)
[2017-01-15] MEDS: oxyCODONE HCL 5 MG TABLET PO PRN ×5 (02:13→20:47)
[2017-01-15] MEDS ORDERED: FUROSEMIDE 40 MG/4 ML INJECTABLE VIAL IVPUSH ONE ×2 (04:34→10:30)
[2017-01-15] MEDS ORDERED: morphine CARPU-JECT 4 MG/1 ML DISP.SYRIN IVPUSH ONE ×2 (04:35→05:39)
[2017-01-15] MEDS: HEPARIN NA (PORCINE) 5,000 UNITS/ML 1ML VIAL SQ SCH ×3 (05:44→21:48)
[2017-01-15] MEDS: NAPH,MB-DB/K PH,MBDB POWDER PACKET PO SCH (05:45)
[2017-01-15 05:48] LABS: MCH 29.4 pg (25.7-33.7); MCHC 33.5 g/dl (32.0-35.9); MEAN CELL VOLUME 87.8 fl (80-96); MEAN PLT VOLUME 9.5 fl (7.5-11.1); PLATELET COUNT 269 K/MM3 (134-434); RDW 14.9 % (11.9-15.9); WHITE BLOOD COUNT 24.3 K/mm3 (4.0-10.0)
[2017-01-15] MEDS: ALBUTEROL SO4 0.083% IH SOL 2.5 MG/3 ML VIAL.NEB. NEB SCH ×5 (06:30→23:03)
[2017-01-15] MEDS: INSULIN SLIDING SCALE (NOVOLOG) 1 VIAL SQ SCH ×4 (06:53→21:50)
[2017-01-15] MEDS: INSULIN DETEMIR 100 UNITS/ML MDV SQ SCH ×2 (06:53→21:52)
[2017-01-15 07:46] LABS: BASOPHIL 0.4 % (0-2.0); NEUTROPHILS 88.6 % (42.8-82.8)
[2017-01-15 09:10] LABS: ALBUMIN 2.2 g/dl (3.4-5.0); BILIRUBIN,TOTAL 0.5 mg/dL (0.2-1.0); CALCIUM 8.4 mg/dL (8.5-10.1); CREATININE 1.6 mg/dL (0.7-1.3); MAGNESIUM 2.2 mg/dL (1.8-2.4); PHOSPHOROUS 2.8 mg/dL (2.5-4.9); TOT PROT 5.4 g/dl (6.4-8.2)
[2017-01-15] MEDS: ASPIRIN COATED 81 MG TABLET.EC PO SCH (09:23)
[2017-01-15] MEDS: NICOTINE 21 MG/24 HOURS TOPICAL PATCH TD SCH (09:23)
[2017-01-15] MEDS: LACTOBACILLUS ACIDOPHILUS 1 EACH TAB (FP) PO SCH (09:23)
[2017-01-15] MEDS: CLOPIDOGREL BISULFATE 75 MG TABLET (FP) PO SCH (09:23)
[2017-01-15] MEDS: ACLIDINIUM BROMIDE 400 MCG/INH AERO.POWD IH SCH ×2 (09:24→21:56)
[2017-01-15] MEDS: METOPROLOL SUCCINATE 50 MG TAB.SR.24H (FP) PO SCH (09:24)
[2017-01-15] MEDS: DOCUSATE SODIUM 100 MG CAPSULE (FP) PO SCH ×2 (09:24→21:49)
[2017-01-15] MEDS: BUDESONIDE/FORMETEROL FUMARATE 160/4.5 mcg INHALER IH SCH ×2 (09:24→21:56)
--- NOTE | 2017-01-15 10:02 | PN ---
Progress Note (short form) - Note Progress Note: PULMONARY/CCM Pt seen and examined in the ICU. Breathing better, used BiPAP overnight but did not like it. Low grade temps. Last Vital Signs Temp Pulse Resp BP Pulse Ox 99 F 87 16 152/73 98 01/15/17 08:00 01/15/17 06:00 01/15/17 08:00 01/15/17 08:00 01/15/17 04:30 Intake & Output 01/12/17 01/13/17 01/14/17 01/15/17 23:59 23:59 23:59 23:59 Intake Total 300 2325 475 Output Total 50 1800 2100 800 Balance -50 -1500 225 -325 Weight 190 lb 196 lb 9.6 oz 197 lb 197 lb 9.6 oz Gen: mildly tachypneic at rest Heart: RRR Lung: bilateral rhonchi, wheezes but less Abd: soft, nontender Ext: no edema, areas of toe dry necrosis CBC, BMP 01/15/17 05:00 01/15/17 05:00 Active Medications Acetaminophen (Tylenol -) 650 mg PO Q6H PRN PRN Reason: FEVER OR PAIN Last Admin: 01/14/17 22:11 Dose: 650 mg Aclidinium [place] (Tudorza -) 1 puff IH BID [facility] Last Admin: 01/15/17 09:24 Dose: 1 puff Albuterol Sulfate (Ventolin 0.083% Nebulizer Soln -) 1 amp NEB QIDR [facility] Last Admin: 01/15/17 06:30 Dose: 1 amp Aspirin (Ecotrin -) 81 mg PO DAILY [facility] Last Admin: 01/15/17 09:23 Dose: 81 mg Atorvastatin Calcium (Lipitor -) 40 mg PO HS [facility] Last Admin: 01/14/17 21:21 Dose: 40 mg Budesonide/Formoterol Fumarate (Symbicort 160/4.5mcg -) 2 puff IH BID [facility] Last Admin: 01/15/17 09:24 Dose: 2 puff Clopidogrel Bisulfate (Plavix -) 75 mg PO DAILY [facility] Last Admin: 01/15/17 09:23 Dose: 75 mg Docusate Sodium (Colace -) 100 mg PO BID [facility] Last Admin: 01/15/17 09:24 Dose: 100 mg Furosemide (Lasix Injection -) 40 mg IVPUSH ONCE ONE Stop: 01/15/17 10:31 Heparin Sodium (Porcine) (Heparin -) 5,000 unit SQ TID [facility] Last Admin: 01/15/17 05:44 Dose: 5,000 unit Hydralazine HCl (Apresoline -) 10 mg PO BID [facility] Last Admin: 01/14/17 21:21 Dose: 10 mg Vancomycin HCl 1,500 mg/ (Dextrose) 500 mls @ 250 mls/hr IVPB Q48H [facility] PRN Reason: Protocol Last Admin: 01/14/17 16:57 Dose: 250 mls/hr Insulin Aspart (Novolog Vial Sliding Scale -) 1 vial SQ ACHS [facility] PRN Reason: Protocol Last Admin: 01/15/17 06:53 Dose: Not Given Insulin Detemir (Levemir Vial) 50 units SQ HS [facility] Last Admin: 01/14/17 21:40 Dose: 50 units Insulin Detemir (Levemir Vial) 50 units SQ AM [facility] Last Admin: 01/15/17 06:53 Dose: 50 units Lactobacillus Acidophilus (Bacid -) 1 tab PO DAILY [facility] Last Admin: 01/15/17 09:23 Dose: 1 tab Metoprolol Succinate (Toprol Xl -) 50 mg PO DAILY [facility] Last Admin: 01/15/17 09:24 Dose: 50 mg Nicotine (Nicoderm Patch -) 21 mg TD DAILY [facility] Last Admin: 01/15/17 09:23 Dose: 21 mg Ondansetron HCl (Zofran Injection) 4 mg IVPB Q6H PRN PRN Reason: NAUSEA Oxycodone HCl (Roxicodone -) 30 mg PO Q4H PRN PRN Reason: PAIN Last Admin: 01/15/17 06:53 Dose: 30 mg Polyethylene Glycol (Miralax (For Daily Use) -) 17 gm PO BID PRN PRN Reason: CONSTIPATION A/P MRSA Bacteremia Cellulitis r/o Osteomyelitis Severe Sepsis Lactic Acidosis Acute on Chronic Renal Failure Acute Hypoxic Respiratory Failure Acute COPD Exacerbation CAD s/p stents PAD DM Smoker - continue antibiotics - f/u cultures and sensitivities - wound care - CT foot - taper FiO2 to keep SpO2 >90% - inhaled bronchodilators - lasix - monitor urine output, creatinine - replete lytes - ASA, plavix - DVT prophylaxis - can monitor on floor
--- NOTE | 2017-01-15 10:47 | PN ---
Progress Note, Physician History of Present Illness: Was short of breath this morning, given lasix and feeling a little better now ( IVF also stopped). Wants to get out of ICU. - Current Medication List Current Medications: Active Medications Acetaminophen (Tylenol -) 650 mg PO Q6H PRN PRN Reason: FEVER OR PAIN Last Admin: 01/14/17 22:11 Dose: 650 mg Aclidinium [place] (Tudorza -) 1 puff IH BID [facility] Last Admin: 01/15/17 09:24 Dose: 1 puff Albuterol Sulfate (Ventolin 0.083% Nebulizer Soln -) 1 amp NEB QIDR [facility] Last Admin: 01/15/17 06:30 Dose: 1 amp Aspirin (Ecotrin -) 81 mg PO DAILY [facility] Last Admin: 01/15/17 09:23 Dose: 81 mg Atorvastatin [place]cium (Lipitor -) 40 mg PO HS [facility] Last Admin: 01/14/17 21:21 Dose: 40 mg Budesonide/Formoterol Fumarate (Symbicort 160/4.5mcg -) 2 puff IH BID [facility] Last Admin: 01/15/17 09:24 Dose: 2 puff Clopidogrel Bisulfate (Plavix -) 75 mg PO DAILY [facility] Last Admin: 01/15/17 09:23 Dose: 75 mg Docusate Sodium (Colace -) 100 mg PO BID [facility] Last Admin: 01/15/17 09:24 Dose: 100 mg Heparin Sodium (Porcine) (Heparin -) 5,000 unit SQ TID [facility] Last Admin: 01/15/17 05:44 Dose: 5,000 unit Hydralazine HCl (Apresoline -) 10 mg PO BID [facility] Last Admin: 01/14/17 21:21 Dose: 10 mg Vancomycin HCl 1,500 mg/ (Dextrose) 500 mls @ 250 mls/hr IVPB Q48H [facility] PRN Reason: Protocol Last Admin: 01/14/17 16:57 Dose: 250 mls/hr Insulin Aspart (Novolog Vial Sliding Scale -) 1 vial SQ ACHS [facility] PRN Reason: Protocol Last Admin: 01/15/17 06:53 Dose: Not Given Insulin Detemir (Levemir Vial) 50 units SQ HS [facility] Last Admin: 01/14/17 21:40 Dose: 50 units Insulin Detemir (Levemir Vial) 50 units SQ AM [facility] Last Admin: 01/15/17 06:53 Dose: 50 units Lactobacillus Acidophilus (Bacid -) 1 tab PO DAILY [facility] Last Admin: 01/15/17 09:23 Dose: 1 tab Metoprolol Succinate (Toprol Xl -) 50 mg PO DAILY [facility] Last Admin: 01/15/17 09:24 Dose: 50 mg Nicotine (Nicoderm Patch -) 21 mg TD DAILY [facility] Last Admin: 01/15/17 09:23 Dose: 21 mg Ondansetron HCl (Zofran Injection) 4 mg IVPB Q6H PRN PRN Reason: NAUSEA Oxycodone HCl (Roxicodone -) 30 mg PO Q4H PRN PRN Reason: PAIN Last Admin: 01/15/17 10:11 Dose: 30 mg Polyethylene Glycol (Miralax (For Daily Use) -) 17 gm PO BID PRN PRN Reason: CONSTIPATION - Objective Vital Signs: Vital Signs Temperature 99 F 01/15/17 08:00 Pulse Rate 87 01/15/17 06:00 Respiratory Rate 16 01/15/17 09:00 Blood Pressure 152/73 01/15/17 08:00 O2 Sat by Pulse Oximetry (%) 93 L 01/15/17 09:00 Constitutional: Yes: No Distress, Calm HENT: Yes: Atraumatic, Normocephalic Neck: Yes: Supple, Trachea Midline Cardiovascular: Yes: Regular Rate and Rhythm, S1, S2. No: Murmur Respiratory: Yes: Regular, Rales (bilateral bases) Gastrointestinal: Yes: Normal Bowel Sounds, Soft, Abdomen, Obese. No: Distention, Tenderness Extremities: Yes: Other (toe ulcerations) Edema: No Neurological: Yes: Alert, Oriented Labs: CBC, BMP 01/15/17 05:00 01/15/17 05:00 Assessment/Plan Current Active Problems Bacteremia (Acute) Cellulitis of foot (Acute) Chest pain (Acute) Sepsis (Acute) acute on Chronic renal insufficiency CAD ischemic cardiomyopathy chronic back/ joint pain Diabetes Mellitus with diabetic neuropathy COPD tobacco use disorder h/o colitis h/o CO h/o CVA -cont abx -off IVF now, will give extra-dose lasix, as still sounds fluid overloaded (h/o ischemic cardiomyopathy with prior episodes of acute CHF) -plan for CT feet once stable to further plan treatment
[2017-01-15] MEDS: hydrALAZINE HCL 10 MG TABLET PO SCH ×2 (11:17→21:48)
--- NOTE | 2017-01-15 12:23 | CONSULT ---
Consult Consult Specialty:: Cardiology Referred by:: Dr. Isbell Reason for Consultation:: History of CAD - History of Present Illness Chief Complaint: Fever with cellulitis History of Present Illness: 66 yo male DM, CKD, CVA 10/2104 without residual deficits. Known CAD with reported "5 prior stents and MIs" last PCI in 2011 Ischemic CMY with systolic LV dysfunction. PAD bilateral LE with non-healing ulcer and COPD with tobacco history Had a fall going up stairs and hit his chest Now admitted to ICU with LE cellulitis with high fever with rigor with staph A bactermia along with chills, tachycardia and tachypnea with altered mental status Currently denies any pain or dyspnea or palpitations. Sees dr suarez for cardio. 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 No: AFIB Pulmonary: Yes: COPD Gastrointestinal: Yes: Other (Colitis) Renal/: Yes: Renal Inusuff, Other (hyperkalemia) Psych: Yes: Addictions Musculoskeletal: Yes: Other (Lumbar radiculopathy) Endocrine: Yes: Diabetes Mellitus - Past Surgical History Past Surgical History: Yes: Stent - Alcohol/Substance Use Hx Alcohol Use: No History of Substance Use: reports: None - Smoking History Smoking history: Current every day smoker Have you smoked in the past 12 months: Yes Aproximately how many cigarettes per day: 30 If you are a former smoker, when did you quit?: DOWN FROM 5 PACKS DAILY TO 2.5 PACKS DAILY - Social History Usual Living Arrangement: With Spouse ADL: Independent History of Recent Travel: No Home Medications - Allergies Allergies/Adverse Reactions: Allergies Allergy/AdvReac Type Severity Reaction Status Date / Time pantoprazole sodium Allergy Verified 01/13/17 06:26 [From Protonix] - Home Medications Home Medications: Ambulatory Orders Atorvastatin Ca [Lipitor] 40 mg PO HS #0 tablet 02/19/14 Clopidogrel Bisulfate [Plavix -] 75 mg PO DAILY #20 tablet 02/19/14 Aspirin [Ecotrin] 81 mg PO DAILY 04/29/15 Temazepam [Restoril -] 60 mg PO HS 08/24/15 Docusate Sodium [Colace -] 100 mg PO BID capsule 08/26/15 Insulin Aspart [Novolog] 0 unit SQ PRN PRN 01/10/16 Metoprolol Succinate [Toprol XL -] 50 mg PO DAILY 01/10/16 Aclidinium [place] [Tudorza -] 1 inh PO BID 08/13/16 Budesonide/Formeterol Fumarate [SYMBICORT 160/4.5mcg -] 2 inh PO BID 08/13/16 Morphine *Sr* [MS Contin -] 60 mg PO TID 08/13/16 Albuterol 0.083% Nebulizer [place] [Ventolin 0.083% Nebulizer Soln -] 1 amp NEB QIDR amp 08/14/16 Hydralazine HCl [Apresoline -] 10 mg PO BID #180 tablet 08/14/16 Insulin (Levemir) [Levemir Vial] 50 unit SQ AM #0 08/14/16 Insulin (Levemir) [Levemir Vial] 50 units SQ HS ml 08/14/16 Morphine *Sr* [MS Contin -] 60 mg PO TID #90 tablet.sa MDD 3 08/14/16 Oxycodone HCl [Roxicodone -] 30 mg PO Q4H PRN #0 tablet MDD 6 08/14/16 Polyethylene Glycol 3350 [Miralax 119 gm Btl -] 17 gm PO BID PRN #0 bottle 08/14 Torsemide [Demadex -] 40 mg PO DAILY #180 tablet 08/14/16 Family Disease History - Family Disease History Family Disease History: Diabetes: Grandparent, Sister (COPD), CA: Father, Respiratory: Sister, Other: Mother (CVA) Review of Systems - Review of Systems Constitutional: reports: Chills, Fever Eyes: reports: No Symptoms HENT: reports: No Symptoms Neck: reports: No Symptoms Cardiovascular: reports: Chest Pain (After falling on the stairs) Respiratory: reports: SOB on Exertion Gastrointestinal: reports: No Symptoms Genitourinary: reports: No Symptoms Integumentary: reports: Rash Neurological: reports: No Symptoms Physical Exam Vital Signs: Vital Signs Temperature 99 F 01/15/17 08:00 Pulse Rate 87 01/15/17 06:00 Respiratory Rate 16 01/15/17 09:00 Blood Pressure 152/73 01/15/17 08:00 O2 Sat by Pulse Oximetry (%) 93 L 01/15/17 09:00 Constitutional: Yes: No Distress, Calm Eyes: Yes: WNL HENT: Yes: WNL Neck: Yes: WNL Cardiovascular: Yes: Regular Rate and Rhythm Respiratory: Yes: WNL Gastrointestinal: Yes: WNL Musculoskeletal: Yes: WNL Extremities: Yes: Other (Bilateral toe non-healing ulcer) Edema: Yes Labs: CBC, BMP 01/15/17 05:00 01/15/17 05:00 Imaging - Results EKG: Image Reviewed (ECG at 01/12/2017 at 23:00 showed SR with 1 deg AVB, LAD and LVH with inferior Qs.) Assessment/Plan Echo 05/13: mod global HK (TDS for rwma); RV tds; trace AI; no RVSP a/p: 66 year old male with a history of DM, ckd, CVA 10/2014 without residual deficits, knownCAD with reported multiple stents - last mLAD PCI 2011, ischemic CM with systolic chf, IDDM, COPD, extensive smoking history now here with high fever, rigors and altered mental status with S. Aureus bactermia. Isch CMP/syst CHF - Appears euvolemic on exam does not appear to be in an acute heart failure at present - gentle IVF as needed for sepsis/infectious process and BP support - con't metoprolol as BP ok at present -Would hold diuresis in setting of SIRS/bactermia until infection treated or if develops signs or volume overload. CAD: -s/p PCI (LIBBY) to 100% occl RPDA in 2004 ([facility]) with patent prior RCA stents at that time, EF 50% then; -s/p anterior STEMI 2011 with [place] LIBBY x 2 to mid LAD then ([facility]); residual dz then included 80% prox D1 (large vessel), 95% mD1; 70%mRCA (pre and post prior stents); 40% RPDA; 60% pCFX; 40% mCFX; 70% dCFX; EF then 37% with AK of apex/AL lindsey and AK of IW; -continue lipitor, plavix, ASA -ECG here without acute ischemic changes. Troponin not checked. No reason to suspect primary cardiac event here. S Aureus Bacteremia/Sepsis with fevers and rigors -Source likely non-healing ulcer -Abx as per ICU team arf on ckd: Follow Creat Monitor electrolytes
[2017-01-15] MEDS: morphine SO4 SUSTAINED ACTING 30 MG TABLET.SA PO SCH ×3 (13:37→21:49)
[2017-01-15] MEDS: ACETAMINOPHEN 325 MG TABLET (FP) PO PRN (15:47)
--- NOTE | 2017-01-15 18:00 | PN ---
Progress Note, Physician History of Present Illness: patient looking much better family in room still spiking fever cough still present evaluated by podiatry c/o of back pain - Current Medication List Current Medications: Active Medications Acetaminophen (Tylenol -) 650 mg PO Q6H PRN PRN Reason: FEVER OR PAIN Last Admin: 01/15/17 15:47 Dose: 650 mg Aclidinium [place] (Tudorza -) 1 puff IH BID [facility] Last Admin: 01/15/17 09:24 Dose: 1 puff Albuterol Sulfate (Ventolin 0.083% Nebulizer Soln -) 1 amp NEB QIDR [facility] Last Admin: 01/15/17 11:39 Dose: 1 amp Aspirin (Ecotrin -) 81 mg PO DAILY [facility] Last Admin: 01/15/17 09:23 Dose: 81 mg Atorvastatin Calcium (Lipitor -) 40 mg PO HS [facility] Last Admin: 01/14/17 21:21 Dose: 40 mg Budesonide/Formoterol Fumarate (Symbicort 160/4.5mcg -) 2 puff IH BID [facility] Last Admin: 01/15/17 09:24 Dose: 2 puff Clopidogrel Bisulfate (Plavix -) 75 mg PO DAILY [facility] Last Admin: 01/15/17 09:23 Dose: 75 mg Docusate Sodium (Colace -) 100 mg PO BID [facility] Last Admin: 01/15/17 09:24 Dose: 100 mg Heparin Sodium (Porcine) (Heparin -) 5,000 unit SQ TID [facility] Last Admin: 01/15/17 13:37 Dose: 5,000 unit Hydralazine HCl (Apresoline -) 10 mg PO BID [facility] Last Admin: 01/15/17 11:17 Dose: 10 mg Vancomycin HCl 1,500 mg/ (Dextrose) 500 mls @ 250 mls/hr IVPB Q48H [facility] PRN Reason: Protocol Last Admin: 01/14/17 16:57 Dose: 250 mls/hr Insulin Aspart (Novolog Vial Sliding Scale -) 1 vial SQ ACHS [facility] PRN Reason: Protocol Last Admin: 01/15/17 17:52 Dose: Not Given Insulin Detemir (Levemir Vial) 50 units SQ HS [facility] Last Admin: 01/14/17 21:40 Dose: 50 units Insulin Detemir (Levemir Vial) 50 units SQ AM [facility] Last Admin: 01/15/17 06:53 Dose: 50 units Lactobacillus Acidophilus (Bacid -) 1 tab PO DAILY [facility] Last Admin: 01/15/17 09:23 Dose: 1 tab Metoprolol Succinate (Toprol Xl -) 50 mg PO DAILY [facility] Last Admin: 01/15/17 09:24 Dose: 50 mg Morphine Sulfate (Ms Contin -) 60 mg PO TID [facility] Last Admin: 01/15/17 17:52 Dose: Not Given Nicotine (Nicoderm Patch -) 21 mg TD DAILY [facility] Last Admin: 01/15/17 09:23 Dose: 21 mg Ondansetron HCl (Zofran Injection) 4 mg IVPB Q6H PRN PRN Reason: NAUSEA Oxycodone HCl (Roxicodone -) 30 mg PO Q4H PRN PRN Reason: PAIN Last Admin: 01/15/17 15:45 Dose: 30 mg Polyethylene Glycol (Miralax (For Daily Use) -) 17 gm PO BID PRN PRN Reason: CONSTIPATION - Objective Vital Signs: Vital Signs Temperature 98.8 F 01/15/17 16:00 Pulse Rate 80 01/15/17 16:00 Respiratory Rate 18 01/15/17 16:00 Blood Pressure 149/76 01/15/17 16:00 O2 Sat by Pulse Oximetry (%) 93 L 01/15/17 12:32 Constitutional: Yes: Calm, Mild Distress Neck: Yes: Supple Cardiovascular: Yes: Regular Rate and Rhythm Respiratory: Yes: Regular, Rhonchi, Wheezes Gastrointestinal: Yes: Normal Bowel Sounds, Soft Musculoskeletal: Yes: Back Pain Extremities: Yes: Other (bilateral foot non) Integumentary: Yes: Erythema, Other Wound/Incision: Yes: Other Neurological: Yes: Alert, Oriented Psychiatric: Yes: Alert, Oriented Labs: CBC, BMP 01/15/17 05:00 01/15/17 05:00 Assessment/Plan This patient treated couple of days back with cefazolin and flagyl now comes with fulminant infection and in sepsis with gram positive bacteremia i have a strong suspicion that now it might be a resistant organism I dont know how many days he was treated from last infection and how it was done. He has got vanco and zosyn he has very bad kidneys,but he also has severe infection and needs to be covered agree with the patient getting echo also patient leg does not look good and i am worried about deep seated infection Imaging - Results Chest X-ray: Report Reviewed, Image Reviewed Problem List - Problems (1) Sepsis Code(s): A41.9 - SEPSIS, UNSPECIFIED ORGANISM (2) Diabetic foot ulcer Code(s): E11.621 - TYPE 2 DIABETES MELLITUS WITH FOOT ULCER L97.509 - NON-PRESSURE CHRONIC ULCER OTH PRT UNSP FOOT W UNSP SEVERITY (3) Cellulitis of foot Code(s): L03.119 - CELLULITIS OF UNSPECIFIED PART OF LIMB (4) Renal failure (ARF), acute on chronic Code(s): N17.9 - ACUTE KIDNEY FAILURE, UNSPECIFIED N18.9 - CHRONIC KIDNEY DISEASE, UNSPECIFIED (5) CAD (coronary artery disease) Code(s): I25.10 - ATHSCL HEART DISEASE OF [place] CORONARY ARTERY W/O ANG PCTRS Qualifiers: Coronary Disease-Associated Artery/Lesion type: unspecified vessel or lesion type [place] vs. transplanted heart: [place] heart Associated angina: with stable angina Qualified Code(s): I25.119 - Atherosclerotic heart disease of [place] coronary artery with unspecified angina pectoris (6) COPD (chronic obstructive pulmonary disease) Code(s): J44.9 - CHRONIC OBSTRUCTIVE PULMONARY DISEASE, UNSPECIFIED Qualifiers : COPD type: unspecified COPD Qualified Code(s): J44.9 - Chronic obstructive pulmonary disease, unspecified (7) Chronic pain Code(s): G89.29 - OTHER CHRONIC PAIN (8) Diabetes mellitus Code(s): E11.9 - TYPE 2 DIABETES MELLITUS WITHOUT COMPLICATIONS Qualifiers: Diabetes mellitus type: type 1 Diabetes mellitus complication status: with hyperglycemia Qualified Code(s): E10.65 - Type 1 diabetes mellitus with hyperglycemia (9) Hyperlipidemia Code(s): E78.5 - HYPERLIPIDEMIA, UNSPECIFIED (10) Hypertension Code(s): I10 - ESSENTIAL (PRIMARY) HYPERTENSION (11) Tobacco abuse Code(s): Z72.0 - TOBACCO USE mrsa bacteremia back pain plan continue vanco i am going to order a stat ct scan of the back to look for any collection continue current mgmt will send stat blood cx will do ct of the legs also cc time 4o min spoke with detail with the family
[2017-01-15] MEDS ORDERED: POLYETHYLENE GLYCOL 3350 119 GM BTL PO PRN (19:34)
[2017-01-15] MEDS ORDERED: ONDANSETRON 4 MG/2 ML VIAL IVPB PRN (19:34)
[2017-01-15] MEDS: ATORVASTATIN CA 40 MG TABLET (FP) PO SCH (21:49)
[2017-01-16] MEDS: oxyCODONE HCL 5 MG TABLET PO PRN ×5 (00:53→22:48)
[2017-01-16] MEDS: ACETAMINOPHEN 325 MG TABLET (FP) PO PRN ×2 (02:25→09:39)
[2017-01-16] MEDS ORDERED: morphine CARPU-JECT 2 MG/1 ML DISP.SYRIN IVPUSH ONE (02:56)
[2017-01-16 05:54] LABS: BASOPHIL 0.6 % (0-2.0); EOSINOPHIL 0.3 % (0-4.5); MCH 28.8 pg (25.7-33.7); MCHC 32.7 g/dl (32.0-35.9); MEAN CELL VOLUME 88.1 fl (80-96); MEAN PLT VOLUME 9.7 fl (7.5-11.1); NEUTROPHILS 87.7 % (42.8-82.8); PLATELET COUNT 273 K/MM3 (134-434); RDW 14.8 % (11.9-15.9); WHITE BLOOD COUNT 27.6 K/mm3 (4.0-10.0)
[2017-01-16] MEDS: HEPARIN NA (PORCINE) 5,000 UNITS/ML 1ML VIAL SQ SCH ×3 (06:14→21:12)
[2017-01-16] MEDS: morphine SO4 SUSTAINED ACTING 30 MG TABLET.SA PO SCH ×3 (06:14→21:21)
[2017-01-16] MEDS: INSULIN SLIDING SCALE (NOVOLOG) 1 VIAL SQ SCH ×4 (06:15→21:21)
[2017-01-16] MEDS: INSULIN DETEMIR 100 UNITS/ML MDV SQ SCH ×2 (06:16→21:20)
[2017-01-16] MEDS: ALBUTEROL SO4 0.083% IH SOL 2.5 MG/3 ML VIAL.NEB. NEB SCH ×4 (06:38→23:06)
[2017-01-16 07:06] LABS: ALBUMIN 2.1 g/dl (3.4-5.0); BILIRUBIN,TOTAL 0.7 mg/dL (0.2-1.0); CALCIUM 8.4 mg/dL (8.5-10.1); CREATININE 1.4 mg/dL (0.7-1.3); MAGNESIUM 1.8 mg/dL (1.8-2.4); PHOSPHOROUS 2.7 mg/dL (2.5-4.9); TOT PROT 5.3 g/dl (6.4-8.2)
[2017-01-16] MEDS: ASPIRIN COATED 81 MG TABLET.EC PO SCH (09:40)
[2017-01-16] MEDS: LACTOBACILLUS ACIDOPHILUS 1 EACH TAB (FP) PO SCH (09:40)
[2017-01-16] MEDS: CLOPIDOGREL BISULFATE 75 MG TABLET (FP) PO SCH (09:40)
[2017-01-16] MEDS: METOPROLOL SUCCINATE 50 MG TAB.SR.24H (FP) PO SCH (09:40)
[2017-01-16] MEDS: DOCUSATE SODIUM 100 MG CAPSULE (FP) PO SCH ×2 (09:40→21:12)
[2017-01-16] MEDS: NICOTINE 21 MG/24 HOURS TOPICAL PATCH TD SCH (09:42)
--- NOTE | 2017-01-16 09:45 | PN ---
Progress Note, Physician Chief Complaint: foot ulcer History of Present Illness: having pain in anterior chest wall since fell with trauma; worse with slight movement--stable no sob, orthopnea no palpit, syncope + cigs - Current Medication List Current Medications: Active Medications Acetaminophen (Tylenol -) 650 mg PO Q6H PRN PRN Reason: FEVER OR PAIN Last Admin: 01/16/17 02:25 Dose: 650 mg Aclidinium [place] (Tudorza -) 1 puff IH BID [facility] Last Admin: 01/15/17 21:56 Dose: 1 puff Albuterol Sulfate (Ventolin 0.083% Nebulizer Soln -) 1 amp NEB QIDR [facility] Last Admin: 01/16/17 06:38 Dose: 1 amp Aspirin (Ecotrin -) 81 mg PO DAILY [facility] Atorvastatin Calcium (Lipitor -) 40 mg PO HS [facility] Last Admin: 01/15/17 21:49 Dose: 40 mg Budesonide/Formoterol Fumarate (Symbicort 160/4.5mcg -) 2 puff IH BID [facility] Last Admin: 01/15/17 21:56 Dose: 2 puff Clopidogrel Bisulfate (Plavix -) 75 mg PO DAILY [facility] Docusate Sodium (Colace -) 100 mg PO BID [facility] Last Admin: 01/15/17 21:49 Dose: 100 mg Heparin Sodium (Porcine) (Heparin -) 5,000 unit SQ TID [facility] Last Admin: 01/16/17 06:14 Dose: 5,000 unit Hydralazine HCl (Apresoline -) 10 mg PO BID [facility] Last Admin: 01/15/17 21:48 Dose: 10 mg Vancomycin HCl 1,500 mg/ (Dextrose) 500 mls @ 250 mls/hr IVPB Q48H [facility] PRN Reason: Protocol Insulin Aspart (Novolog Vial Sliding Scale -) 1 vial SQ ACHS [facility] PRN Reason: Protocol Last Admin: 01/16/17 06:15 Dose: Not Given Insulin Detemir (Levemir Vial) 50 units SQ HS [facility] Last Admin: 01/15/17 21:52 Dose: 50 units Insulin Detemir (Levemir Vial) 50 units SQ AM [facility] Last Admin: 01/16/17 06:16 Dose: Not Given Lactobacillus Acidophilus (Bacid -) 1 tab PO DAILY [facility] Metoprolol Succinate (Toprol Xl -) 50 mg PO DAILY [facility] Morphine Sulfate (Ms Contin -) 60 mg PO TID [facility] Last Admin: 01/16/17 06:14 Dose: 60 mg Nicotine (Nicoderm Patch -) 21 mg TD DAILY [facility] Ondansetron HCl (Zofran Injection) 4 mg IVPB Q6H PRN PRN Reason: NAUSEA Oxycodone HCl (Roxicodone -) 30 mg PO Q4H PRN PRN Reason: PAIN Last Admin: 01/16/17 04:52 Dose: 30 mg Polyethylene Glycol (Miralax (For Daily Use) -) 17 gm PO BID PRN PRN Reason: CONSTIPATION - Objective Vital Signs: Vital Signs Temperature 98.6 F 01/16/17 06:00 Pulse Rate 79 01/16/17 07:49 Respiratory Rate 22 01/16/17 07:49 Blood Pressure 153/83 01/16/17 07:49 O2 Sat by Pulse Oximetry (%) 93 L 01/16/17 07:54 Constitutional: Yes: No Distress, Calm Eyes: No: Sclera Icterus HENT: No: Nasal Congestion Cardiovascular: Yes: Regular Rate and Rhythm, S1, S2, Other (PMI non diplaced). No: JVD, Gallop, Murmur Respiratory: Yes: CTA Bilaterally. No: Accessory Muscle Use, Rales, Wheezes Gastrointestinal: Yes: Normal Bowel Sounds, Soft. No: Tenderness Musculoskeletal: Yes: Other (No kyphosis) Extremities: Yes: Cool Edema: No Integumentary: No: Jaundice Neurological: Yes: Alert, Oriented (x3) Psychiatric: No: Agitated Labs: CBC, BMP 01/16/17 05:00 01/16/17 05:00 - ....Imaging EKG: Other (tele: NSR; runs of NSVT (3 beats)) Assessment/Plan Echo 05/13: mod global HK (TDS for rwma); RV tds; trace AI; no RVSP Echo 12/2016: TDS; LVSF is "at least mildly reduced: RWM assessment tds; nl RV; nl LA; mild MR/TR; no veg seen Isch CMP/syst CHF - Appears euvolemic on exam does not appear to be in an acute heart failure at present - gentle IVF as needed for sepsis/infectious process and BP support - con't metoprolol as BP ok at present -Would hold diuresis in setting of SIRS/bactermia until infection treated or if develops signs or volume overload. CAD: -follows with dr roddy suarez cardio -s/p PCI (LIBBY) to 100% occl RPDA in 2004 ([facility]) with patent prior RCA stents at that time, EF 50% then; -s/p anterior STEMI 2011 with [place] LIBBY x 2 to mid LAD then ([facility]); residual dz then included 80% prox D1 (large vessel), 95% mD1; 70%mRCA (pre and post prior stents); 40% RPDA; 60% pCFX; 40% mCFX; 70% dCFX; EF then 37% with AK of apex/AL lindsey and AK of IW; -continue lipitor, plavix, ASA -ECG here without acute ischemic changes, no clinical suspicion of acute ischemic cardiac event here. S Aureus Bacteremia/Sepsis with fevers and rigors -Source likely non-healing ulcer -Abx as per ICU team -echo here without veg VTach: -runs of NSVT; -no severe LV dysfunction on echo -replete K (ordered) -K/Mag > 2/4 per usual -cont bb as doing -monitor tele atyp CP: -mskel features, due to recent chest wall injury with fall -observe arf on ckd: -improving significantly -IVF, tx of sepsis per crit care HTN: -per home med list, pt on toprol 50 and hydral 10 bid at home -bp stable here -monitor closely given ongoing sepsis Bradycardia - ? mobitz I vs II while sleeping on tele here previously - monitor tele--stable thus far - cont home BB as doing h/o CVA: -dx'd lacunar infarct 02/10 clinically then (slurred speech) -? acute CVA/TIA 11/13, seen by neuro then--ASA added to prior plavix, remains on DAPT DM/hyperglycemia - per crit care/pmd
[2017-01-16] MEDS ORDERED: PT OWN MED DRAWER 7, Y5N ONE ×2 (09:48→20:54)
[2017-01-16] MEDS: BUDESONIDE/FORMETEROL FUMARATE 160/4.5 mcg INHALER IH SCH ×2 (09:49→21:13)
[2017-01-16] MEDS: ACLIDINIUM BROMIDE 400 MCG/INH AERO.POWD IH SCH ×2 (09:51→21:12)
[2017-01-16] MEDS: hydrALAZINE HCL 10 MG TABLET PO SCH ×2 (09:52→21:12)
--- NOTE | 2017-01-16 10:03 | PN ---
Progress Note, Physician Chief Complaint: Mr Scott mainly complains about still being in the ICU and wants to be transferred to the floor. Aside from that he complains about his chronic pain and is asking for an increase in his pain regimen. RN says says he is upset because he takes more at home, however we confirmed his regimen with his pharmacy. No cp, sob, n/v. - Current Medication List Current Medications: Active Medications Acetaminophen (Tylenol -) 650 mg PO Q6H PRN PRN Reason: FEVER OR PAIN Last Admin: 01/16/17 09:39 Dose: 650 mg Aclidinium [place] (Tudorza -) 1 puff IH BID [facility] Last Admin: 01/16/17 09:51 Dose: 1 puff Albuterol Sulfate (Ventolin 0.083% Nebulizer Soln -) 1 amp NEB QIDR [facility] Last Admin: 01/16/17 06:38 Dose: 1 amp Aspirin (Ecotrin -) 81 mg PO DAILY [facility] Last Admin: 01/16/17 09:40 Dose: 81 mg Atorvastatin Calcium (Lipitor -) 40 mg PO HS [facility] Last Admin: 01/15/17 21:49 Dose: 40 mg Budesonide/Formoterol Fumarate (Symbicort 160/4.5mcg -) 2 puff IH BID [facility] Last Admin: 01/16/17 09:49 Dose: 2 puff Clopidogrel Bisulfate (Plavix -) 75 mg PO DAILY [facility] Last Admin: 01/16/17 09:40 Dose: 75 mg Docusate Sodium (Colace -) 100 mg PO BID [facility] Last Admin: 01/16/17 09:40 Dose: 100 mg Heparin Sodium (Porcine) (Heparin -) 5,000 unit SQ TID [facility] Last Admin: 01/16/17 06:14 Dose: 5,000 unit Hydralazine HCl (Apresoline -) 10 mg PO BID [facility] Last Admin: 01/16/17 09:52 Dose: 10 mg Vancomycin HCl 1,500 mg/ (Dextrose) 500 mls @ 250 mls/hr IVPB Q48H [facility] PRN Reason: Protocol Insulin Aspart (Novolog Vial Sliding Scale -) 1 vial SQ ACHS [facility] PRN Reason: Protocol Last Admin: 01/16/17 06:15 Dose: Not Given Insulin Detemir (Levemir Vial) 50 units SQ [facility] Last Admin: 01/15/17 21:52 Dose: 50 units Insulin Detemir (Levemir Vial) 50 units SQ AM [facility] Last Admin: 01/16/17 06:16 Dose: Not Given Lactobacillus Acidophilus (Bacid -) 1 tab PO DAILY [facility] Last Admin: 01/16/17 09:40 Dose: 1 tab Metoprolol Succinate (Toprol Xl -) 50 mg PO DAILY [facility] Last Admin: 01/16/17 09:40 Dose: 50 mg Morphine Sulfate (Ms Contin -) 60 mg PO TID [facility] Last Admin: 01/16/17 06:14 Dose: 60 mg Nicotine (Nicoderm Patch -) 21 mg TD DAILY [facility] Last Admin: 01/16/17 09:42 Dose: 21 mg Ondansetron HCl (Zofran Injection) 4 mg IVPB Q6H PRN PRN Reason: NAUSEA Oxycodone HCl (Roxicodone -) 30 mg PO Q4H PRN PRN Reason: PAIN Last Admin: 01/16/17 09:38 Dose: 30 mg Polyethylene Glycol (Miralax (For Daily Use) -) 17 gm PO BID PRN PRN Reason: CONSTIPATION - Objective Vital Signs: Vital Signs Temperature 98.6 F 01/16/17 06:00 Pulse Rate 79 01/16/17 07:49 Respiratory Rate 22 01/16/17 07:49 Blood Pressure 153/83 01/16/17 07:49 O2 Sat by Pulse Oximetry (%) 93 L 01/16/17 07:54 Constitutional: Yes: No Distress, Calm, Obese Cardiovascular: Yes: Regular Rate and Rhythm. No: Gallop, Murmur, Rub Respiratory: Yes: Regular, CTA Bilaterally. No: Rales, Rhonchi, Wheezes Gastrointestinal: Yes: Normal Bowel Sounds, Soft. No: Distention, Tenderness Extremities: Yes: Other (wrapped) Edema: No Labs: CBC, BMP 01/16/17 05:00 01/16/17 05:00 Problem List - Problems (1) Sepsis Code(s): A41.9 - SEPSIS, UNSPECIFIED ORGANISM (2) Diabetic foot ulcer Code(s): E11.621 - TYPE 2 DIABETES MELLITUS WITH FOOT ULCER L97.509 - NON-PRESSURE CHRONIC ULCER OTH PRT UNSP FOOT W UNSP SEVERITY (3) Cellulitis of foot Code(s): L03.119 - CELLULITIS OF UNSPECIFIED PART OF LIMB (4) Renal failure (ARF), acute on chronic Code(s): N17.9 - ACUTE KIDNEY FAILURE, UNSPECIFIED N18.9 - CHRONIC KIDNEY DISEASE, UNSPECIFIED (5) CAD (coronary artery disease) Code(s): I25.10 - ATHSCL HEART DISEASE OF [place] CORONARY ARTERY W/O ANG PCTRS Qualifiers: Coronary Disease-Associated Artery/Lesion type: unspecified vessel or lesion type [place] vs. transplanted heart: [place] heart Associated angina: with stable angina Qualified Code(s): I25.118 - Atherosclerotic heart disease of [place] coronary artery with other forms of angina pectoris (6) COPD (chronic obstructive pulmonary disease) Code(s): J44.9 - CHRONIC OBSTRUCTIVE PULMONARY DISEASE, UNSPECIFIED Qualifiers : COPD type: unspecified COPD Qualified Code(s): J44.9 - Chronic obstructive pulmonary disease, unspecified (7) Chronic pain Code(s): G89.29 - OTHER CHRONIC PAIN (8) Diabetes mellitus Code(s): E11.9 - TYPE 2 DIABETES MELLITUS WITHOUT COMPLICATIONS Qualifiers: Diabetes mellitus type: type 1 Diabetes mellitus complication status: with hyperglycemia Qualified Code(s): E10.65 - Type 1 diabetes mellitus with hyperglycemia (9) Hyperlipidemia Code(s): E78.5 - HYPERLIPIDEMIA, UNSPECIFIED (10) Hypertension Code(s): I10 - ESSENTIAL (PRIMARY) HYPERTENSION (11) Tobacco abuse Code(s): Z72.0 - TOBACCO USE Assessment/Plan (1) Sepsis Assessment/Plan: -still with leukocytosis, but otherwise stable -continue antibiotics per ID Code(s): A41.9 - SEPSIS, UNSPECIFIED ORGANISM (2) Diabetic foot ulcer Assessment/Plan: -patient with worsening diabetic foot ulcer -ID and podiatry following -blood cultures originally grew MRSA, second set currently negative -continue vancomycin -will need amputation Code(s): E11.621 - TYPE 2 DIABETES MELLITUS WITH FOOT ULCER L97.509 - NON-PRESSURE CHRONIC ULCER OTH PRT UNSP FOOT W UNSP SEVERITY (3) Cellulitis of foot Assessment/Plan: -antibiotics as above -podiatry and ID consulted Code(s): L03.119 - CELLULITIS OF UNSPECIFIED PART OF LIMB (4) Renal failure (ARF), acute on chronic Assessment/Plan: -s/p hydration -at baseline Code(s): N17.9 - ACUTE KIDNEY FAILURE, UNSPECIFIED N18.9 - CHRONIC KIDNEY DISEASE, UNSPECIFIED (5) CAD (coronary artery disease) Assessment/Plan: -continue aspirin and plavix -continue metoprolol -continue lipitor -quiescent Code(s): I25.10 - ATHSCL HEART DISEASE OF [place] CORONARY ARTERY W/O ANG PCTRS Qualifiers: Coronary Disease-Associated Artery/Lesion type: unspecified vessel or lesion type [place] vs. transplanted heart: [place] heart Associated angina: with stable angina Qualified Code(s): I25.119 - Atherosclerotic heart disease of [place] coronary artery with unspecified angina pectoris (6) COPD (chronic obstructive pulmonary disease) Assessment/Plan: -not in exacerbation -continue home regimen Code(s): J44.9 - CHRONIC OBSTRUCTIVE PULMONARY DISEASE, UNSPECIFIED Qualifiers : COPD type: unspecified COPD Qualified Code(s): J44.9 - Chronic obstructive pulmonary disease, unspecified (7) Chronic pain Assessment/Plan: -will continue patient on his home regimen -suspect will be challenging to control his pain after amputation secondary to this Code(s): G89.29 - OTHER CHRONIC PAIN (8) Diabetes mellitus Assessment/Plan: -appreciate endocrinology assistance -continue levemir 50 units bid -continue SSI -diabetic diet Code(s): E11.9 - TYPE 2 DIABETES MELLITUS WITHOUT COMPLICATIONS Qualifiers: Diabetes mellitus type: type 1 Diabetes mellitus complication status: with hyperglycemia Qualified Code(s): E10.65 - Type 1 diabetes mellitus with hyperglycemia (9) Hyperlipidemia Assessment/Plan: -continue statin Code(s): E78.5 - HYPERLIPIDEMIA, UNSPECIFIED (10) Hypertension Assessment/Plan: -continue hydralazine and metoprolol -monitor Code(s): I10 - ESSENTIAL (PRIMARY) HYPERTENSION (11) Tobacco abuse Assessment/Plan: -nicotine patch Code(s): Z72.0 - TOBACCO USE
--- NOTE | 2017-01-16 10:32 | PN ---
Progress Note (short form) - Note Progress Note: Podiatry: Seen and evaluated at bedside in ICU, NAD. Still having trouble breathing, but states it is improving. Denies F/V/N/C/SOB/CP. No pain to feet. Currently afebrile, VSS. Apparently will be transferred from ICU. ZION: L foot: dry gangrene noted to dorsal aspect of 2nd digit with surrounding erythema. Surrounding erythema improving well, no fluctuance, no soft tissue crepitus, no lymphangitis, no tenderness to palpation, no purulent drainage. Medial midfoot superficial eschar, no fluctuance, no purulent drainage, no soft tissue crepitus, no surrounding erythema. R foot: distal tuft dry gangrene of hallux, no drainage, no purulent drainage, no fluctuance, no ascending cellulitis, no soft tissue crepitus. WBC: 27.6 Blood Cx repeat: pending CT scan foot report: pending ESR: 100 Imp: 66 year old IDDM M with L 2nd toe gangrene with cellulitis 1. F/u report of CT scan 2. C/w IV abx per ID 3. Needs medical stabilization prior to surgical intervention. If he is medically stable for surgery, can perform L 2nd toe amputation tomorrow. Discussed this with patient. Will be on hold until patient is medically optimized for surgery. 4. Will follow. Nadege Velez DPM
[2017-01-16] MEDS ORDERED: POTASSIUM CHLORIDE TABS 20 MEQ TABLET.ER (FP) PO ONE (11:45)
--- NOTE | 2017-01-16 12:04 | PN ---
Teaching Attending Note Name of Resident: Omid Julian ATTENDING PHYSICIAN STATEMENT I saw and evaluated the patient. I reviewed the resident's note and discussed the case with the resident. I agree with the resident's findings and plan as documented. SUBJECTIVE: Pt seen and examined in the ICU. Feels better today. Diuresed well with lasix yesterday. No fevers or chills. +nonproductive cough. OBJECTIVE: Last Vital Signs Temp Pulse Resp BP Pulse Ox 97.4 F L 85 23 160/82 91 L 01/16/17 10:00 01/16/17 11:40 01/16/17 11:40 01/16/17 11:40 01/16/17 10:12 Intake & Output 01/13/17 01/14/17 01/15/17 01/16/17 23:59 23:59 23:59 23:59 Intake Total 300 2325 1195 480 Output Total 1800 2100 2200 400 Balance -1500 225 -1005 80 Weight 196 lb 9.6 oz 197 lb 197 lb 9.6 oz 191 lb 9.6 oz Gen: less tachypneic Heart: RRR Lung: scattered rhonchi Abd: soft, nontender Ext: trace edema, left 2nd toe with necrotic eschar CBC, BMP 01/16/17 05:00 01/16/17 05:00 Active Medications Acetaminophen (Tylenol -) 650 mg PO Q6H PRN PRN Reason: FEVER OR PAIN Last Admin: 01/16/17 09:39 Dose: 650 mg Aclidinium [place] (Tudorza -) 1 puff IH BID [facility] Last Admin: 01/16/17 09:51 Dose: 1 puff Albuterol Sulfate (Ventolin 0.083% Nebulizer Soln -) 1 amp NEB QIDR [facility] Last Admin: 01/16/17 11:00 Dose: 1 amp Aspirin (Ecotrin -) 81 mg PO DAILY [facility] Last Admin: 01/16/17 09:40 Dose: 81 mg Atorvastatin Calcium (Lipitor -) 40 mg PO HS [facility] Last Admin: 01/15/17 21:49 Dose: 40 mg Budesonide/Formoterol Fumarate (Symbicort 160/4.5mcg -) 2 puff IH BID [facility] Last Admin: 01/16/17 09:49 Dose: 2 puff Clopidogrel Bisulfate (Plavix -) 75 mg PO DAILY [facility] Last Admin: 01/16/17 09:40 Dose: 75 mg Docusate Sodium (Colace -) 100 mg PO BID [facility] Last Admin: 01/16/17 09:40 Dose: 100 mg Heparin Sodium (Porcine) (Heparin -) 5,000 unit SQ TID [facility] Last Admin: 01/16/17 06:14 Dose: 5,000 unit Hydralazine HCl (Apresoline -) 10 mg PO BID [facility] Last Admin: 01/16/17 09:52 Dose: 10 mg Vancomycin HCl 1,500 mg/ (Dextrose) 500 mls @ 250 mls/hr IVPB Q48H [facility] PRN Reason: Protocol Insulin Aspart (Novolog Vial Sliding Scale -) 1 vial SQ ACHS [facility] PRN Reason: Protocol Last Admin: 01/16/17 11:39 Dose: Not Given Insulin Detemir (Levemir Vial) 50 units SQ HS [facility] Last Admin: 01/15/17 21:52 Dose: 50 units Insulin Detemir (Levemir Vial) 50 units SQ AM [facility] Last Admin: 01/16/17 06:16 Dose: Not Given Lactobacillus Acidophilus (Bacid -) 1 tab PO DAILY [facility] Last Admin: 01/16/17 09:40 Dose: 1 tab Metoprolol Succinate (Toprol Xl -) 50 mg PO DAILY [facility] Last Admin: 01/16/17 09:40 Dose: 50 mg Morphine Sulfate (Ms Contin -) 60 mg PO TID [facility] Last Admin: 01/16/17 06:14 Dose: 60 mg Nicotine (Nicoderm Patch -) 21 mg TD DAILY [facility] Last Admin: 01/16/17 09:42 Dose: 21 mg Ondansetron HCl (Zofran Injection) 4 mg IVPB Q6H PRN PRN Reason: NAUSEA Oxycodone HCl (Roxicodone -) 30 mg PO Q4H PRN PRN Reason: PAIN Last Admin: 01/16/17 09:38 Dose: 30 mg Polyethylene Glycol (Miralax (For Daily Use) -) 17 gm PO BID PRN PRN Reason: CONSTIPATION ASSESSMENT AND PLAN: MRSA Bacteremia Cellulitis r/o Osteomyelitis Severe Sepsis Lactic Acidosis Acute on Chronic Renal Failure Acute Hypoxic Respiratory Failure improving Acute COPD Exacerbation CAD s/p stents PAD DM Smoker - continue antibiotics - wound care - f/u CT foot - taper FiO2 to keep SpO2 >90% - inhaled bronchodilators - dose lasix again today - monitor urine output, creatinine - replete lytes - ASA, plavix - DVT prophylaxis - can monitor on floor
[2017-01-16] MEDS ORDERED: FUROSEMIDE 40 MG/4 ML INJECTABLE VIAL IVPUSH ONE (13:55)
[2017-01-16] MEDS ORDERED: morphine SO4 SUSTAINED ACTING 30 MG TABLET.SA PO SCH (14:00)
--- NOTE | 2017-01-16 14:45 | PN ---
Physical Exam: SUBJECTIVE: Patient seen and examined at bedside in ICU. He reported feeling fine and no acute event overnight. Denies chest pain, shortness of breath, pain under control, n/v. He did have a spike fever of 100.8 F per nurse, and still having non productive cough. OBJECTIVE: Vital Signs Period Temp Pulse Resp BP Sys/Chandra Pulse Ox Last 24 Hr 97.4 F-100.8 F 75-99 18-28 135-175/70-86 91-95 GENERAL: Awake, alert, and fully oriented, not in any cardiopulmonary distress HEAD: AT, NC EYES: Pupils equal, round and reactive to light, sclera anicteric, conjunctiva clear EARS, NOSE, THROAT: nares patent, oropharynx clear without exudates LUNGS: loud biphasic rhonchi b/l HEART: RRR, S1 and S2, no murmur, rub ABDOMEN: +bs, soft, non-tender, no rebound, guarding EXTREMITIES: No calf tenderness. No peripheral edema. NEUROLOGICAL: Cranial nerves II-XII intact CBCD WBC 27.6 K/mm3 (4.0-10.0) H 01/16/17 05:00 RBC 4.42 M/mm3 (4.00-5.60) 01/16/17 05:00 Hgb 12.7 GM/dL (11.7-16.9) 01/16/17 05:00 Hct 39.0 % (35.4-49) 01/16/17 05:00 MCV 88.1 fl (80-96) 01/16/17 05:00 MCHC 32.7 g/dl (32.0-35.9) 01/16/17 05:00 RDW 14.8 % (11.9-15.9) 01/16/17 05:00 Plt Count 273 K/MM3 (134-434) 01/16/17 05:00 MPV 9.7 fl (7.5-11.1) 01/16/17 05:00 CMP Sodium 139 mmol/L (136-145) 01/16/17 05:00 Potassium 3.3 mmol/L (3.5-5.1) L 01/16/17 05:00 Chloride 95 mmol/L (98-107) L 01/16/17 05:00 Carbon Dioxide 36 mmol/L (21-32) H D 01/16/17 05:00 Anion Gap 8 (8-16) 01/16/17 05:00 BUN 57 mg/dL (7-18) H 01/16/17 05:00 Creatinine 1.4 mg/dL (0.7-1.3) H 01/16/17 05:00 Creat Clearance w eGFR 50.40 (>60) 01/16/17 05:00 Calcium 8.4 mg/dL (8.5-10.1) L 01/16/17 05:00 Total Bilirubin 0.7 mg/dL (0.2-1.0) D 01/16/17 05:00 AST 61 U/L (15-37) H D 01/16/17 05:00 ALT 45 U/L (12-78) D 01/16/17 05:00 Alkaline Phosphatase 128 U/L (45-117) H D 01/16/17 05:00 Total Protein 5.3 g/dl (6.4-8.2) L 01/16/17 05:00 Albumin 2.1 g/dl (3.4-5.0) L 01/16/17 05:00 Intake & Output 01/13/17 01/14/17 01/15/17 01/16/17 23:59 23:59 23:59 23:59 Intake Total 300 2325 1195 880 Output Total 1800 2100 2200 800 Balance -1500 225 -1005 80 Weight 89.176 kg 89.358 kg 89.63 kg 86.908 kg Active Medications Generic Name Dose Route Start Last Admin Trade Name Freq PRN Reason Stop Dose Admin Acetaminophen 650 mg 01/15/17 19:34 01/16/17 09:39 Tylenol - PO 650 mg Q6H PRN Administration FEVER OR PAIN Aclidinium [place] 1 puff 01/15/17 22:00 01/16/17 09:51 Tudorza - IH 1 puff BID [facility] Administration Albuterol Sulfate 1 amp 01/16/17 00:00 01/16/17 11:00 Ventolin 0.083% Nebulizer Soln - NEB 1 amp QIDR [facility] Administration Aspirin 81 mg 01/16/17 10:00 01/16/17 09:40 Ecotrin - PO 81 mg DAILY [facility] Administration Atorvastatin Calcium 40 mg 01/15/17 22:00 01/15/17 21:49 Lipitor - PO 40 mg HS [facility] Administration Budesonide/Formoterol Fumarate 2 puff 01/15/17 22:00 01/16/17 09:49 Symbicort 160/4.5mcg - IH 2 puff BID [facility] Administration Clopidogrel Bisulfate 75 mg 01/16/17 10:00 01/16/17 09:40 Plavix - PO 75 mg DAILY [facility] Administration Docusate Sodium 100 mg 01/15/17 22:00 01/16/17 09:40 Colace - PO 100 mg BID [facility] Administration Heparin Sodium (Porcine) 5,000 unit 01/15/17 22:00 01/16/17 06:14 Heparin - SQ 5,000 unit TID [facility] Administration Hydralazine HCl 10 mg 01/15/17 22:00 01/16/17 09:52 Apresoline - PO 10 mg BID [facility] Administration Vancomycin HCl 1,500 mg/ 500 mls @ 250 mls/hr 01/16/17 15:00 Dextrose IVPB Q48H [facility] Protocol Insulin Aspart 1 vial 01/15/17 22:00 01/16/17 11:39 Novolog Vial Sliding Scale - SQ Not Given ACHS [facility] Protocol Insulin Detemir 50 units 01/15/17 22:00 01/15/17 21:52 Levemir Vial SQ 50 units HS [facility] Administration Insulin Detemir 50 units 01/16/17 07:00 01/16/17 06:16 Levemir Vial SQ Not Given AM [facility] Lactobacillus Acidophilus 1 tab 01/16/17 10:00 01/16/17 09:40 Bacid - PO 1 tab DAILY [facility] Administration Metoprolol Succinate 50 mg 01/16/17 10:00 01/16/17 09:40 Toprol Xl - PO 50 mg DAILY [facility] Administration Morphine Sulfate 60 mg 01/15/17 11:00 01/16/17 06:14 Ms Contin - PO 60 mg TID [facility] Administration Nicotine 21 mg 01/16/17 10:00 01/16/17 09:42 Nicoderm Patch - TD 21 mg DAILY [facility] Administration Ondansetron HCl 4 mg 01/15/17 19:34 Zofran Injection IVPB Q6H PRN NAUSEA Oxycodone HCl 30 mg 01/15/17 19:34 01/16/17 09:38 Roxicodone - PO 30 mg Q4H PRN Administration PAIN Polyethylene Glycol 17 gm 01/15/17 19:34 Miralax (For Daily Use) - PO BID PRN CONSTIPATION Senna 1 tab 01/16/17 14:00 Senna - PO BID [facility] Imaging CT lower extremities on 01/16: no CT evidence of osteo, retained stool, small inguinal hernia CT spine on 01/16: degenerative changes CXR on 01/13: No change CXR on 01/12: no acute pathology Microbiology 01/12/17 21:40 Blood - Peripheral Venous Blood Culture - Final S Aureus 01/12/17 21:40 Blood - Peripheral Venous Blood Culture - Final S Aureus ASSESSMENT/PLAN: 66 yo male h/o HTN, HLD, CHF, COPD, CKD, CVA, CAD s/p stents, DMII with peripheral neuropathy and foot ulcers admitted to the ICU for sepsis and acute respiratory distress. Pulm: Acute respiratory distress - Cont. supplemental O2 * BiPAP PRN - Lasix 40mg IVPUSH once - Maintain O2 Sat. > 88% - Cont. symbicort, tudorza - Nebulizers PRN - Daily CXR to assess fluid accumulation ID: Sepsis 2/2 diabetic foot ulcer and cellulitis - Elevated WBC and spike fever 100.8F - MRSA in blood culture - Trend ESR - CT negative for osteo - L 2nd toe amputation when stable - On Vanco day 1 Renal: CKD stage 4 - Cr at baseline with daily improvement - Cont. hydration - [place] PRN - Monitor I/O Endo: DM2 with neuropathy - Cont. levemir and sliding scale - Cont. morphine and oxycodone - BGM Cardiac: CAD s/p stent; HTN - Cont. Asa, plavix, and lipitor - Cont. hydralazine and lopressor FEN - IVF NS 75ml/hr - Cont. to monitor lytes - PO Diet as tolerated - Prophylaxis - DVT: heparin SQ - GI: on PPI Disposition - Cont. to monitor in ICU Code status - Full code Visit type - Emergency Visit Emergency Visit: No - New Patient This patient is new to me today: No - Critical Care Critical Care patient: Yes Total Critical Care Time (in minutes): 45 Critical Care Statement: The care of this patient involved high complexity decision making to prevent further life threatening deterioration of the patient 's condition and/or to evalute & treat vital organ system(s) failure or risk of failure.
--- NOTE | 2017-01-16 15:09 | PN ---
Progress Note, Physician History of Present Illness: patient stable doing well back pain still coughing diuresed well - Current Medication List Current Medications: Active Medications Acetaminophen (Tylenol -) 650 mg PO Q6H PRN PRN Reason: FEVER OR PAIN Last Admin: 01/16/17 09:39 Dose: 650 mg Aclidinium [place] (Tudorza -) 1 puff IH BID [facility] Last Admin: 01/16/17 09:51 Dose: 1 puff Albuterol Sulfate (Ventolin 0.083% Nebulizer Soln -) 1 amp NEB QIDR [facility] Last Admin: 01/16/17 11:00 Dose: 1 amp Aspirin (Ecotrin -) 81 mg PO DAILY [facility] Last Admin: 01/16/17 09:40 Dose: 81 mg Atorvastatin Calcium (Lipitor -) 40 mg PO HS [facility] Last Admin: 01/15/17 21:49 Dose: 40 mg Budesonide/Formoterol Fumarate (Symbicort 160/4.5mcg -) 2 puff IH BID [facility] Last Admin: 01/16/17 09:49 Dose: 2 puff Clopidogrel Bisulfate (Plavix -) 75 mg PO DAILY [facility] Last Admin: 01/16/17 09:40 Dose: 75 mg Docusate Sodium (Colace -) 100 mg PO BID [facility] Last Admin: 01/16/17 09:40 Dose: 100 mg Heparin Sodium (Porcine) (Heparin -) 5,000 unit SQ TID [facility] Last Admin: 01/16/17 06:14 Dose: 5,000 unit Hydralazine HCl (Apresoline -) 10 mg PO BID [facility] Last Admin: 01/16/17 09:52 Dose: 10 mg Vancomycin HCl 1,500 mg/ (Dextrose) 500 mls @ 250 mls/hr IVPB Q48H [facility] PRN Reason: Protocol Insulin Aspart (Novolog Vial Sliding Scale -) 1 vial SQ ACHS [facility] PRN Reason: Protocol Last Admin: 01/16/17 11:39 Dose: Not Given Insulin Detemir (Levemir Vial) 50 units SQ HS [facility] Last Admin: 01/15/17 21:52 Dose: 50 units Insulin Detemir (Levemir Vial) 50 units SQ AM [facility] Last Admin: 01/16/17 06:16 Dose: Not Given Lactobacillus Acidophilus (Bacid -) 1 tab PO DAILY [facility] Last Admin: 01/16/17 09:40 Dose: 1 tab Metoprolol Succinate (Toprol Xl -) 50 mg PO DAILY [facility] Last Admin: 01/16/17 09:40 Dose: 50 mg Morphine Sulfate (Ms Contin -) 60 mg PO TID [facility] Last Admin: 01/16/17 06:14 Dose: 60 mg Nicotine (Nicoderm Patch -) 21 mg TD DAILY [facility] Last Admin: 01/16/17 09:42 Dose: 21 mg Ondansetron HCl (Zofran Injection) 4 mg IVPB Q6H PRN PRN Reason: NAUSEA Oxycodone HCl (Roxicodone -) 30 mg PO Q4H PRN PRN Reason: PAIN Last Admin: 01/16/17 09:38 Dose: 30 mg Polyethylene Glycol (Miralax (For Daily Use) -) 17 gm PO BID PRN PRN Reason: CONSTIPATION Senna (Senna -) 1 tab PO BID [facility] - Objective Vital Signs: Vital Signs Temperature 97.4 F L 01/16/17 10:00 Pulse Rate 85 01/16/17 11:40 Respiratory Rate 23 01/16/17 11:40 Blood Pressure 160/82 01/16/17 11:40 O2 Sat by Pulse Oximetry (%) 91 L 01/16/17 10:12 Constitutional: Yes: No Distress, Calm Cardiovascular: Yes: Regular Rate and Rhythm Respiratory: Yes: Regular, Poor Air Entry, Rhonchi Gastrointestinal: Yes: Normal Bowel Sounds, Soft Musculoskeletal: Yes: WNL Extremities: Yes: Other Integumentary: Yes: Erythema Wound/Incision: Yes: Other Neurological: Yes: Alert, Oriented Psychiatric: Yes: Alert Labs: CBC, BMP 01/16/17 05:00 01/16/17 05:00 - ....Imaging Cat Scan: Report Reviewed, Image Reviewed Assessment/Plan This patient treated couple of days back with cefazolin and flagyl now comes with fulminant infection and in sepsis with gram positive bacteremia i have a strong suspicion that now it might be a resistant organism I dont know how many days he was treated from last infection and how it was done. He has got vanco and zosyn he has very bad kidneys,but he also has severe infection and needs to be covered agree with the patient getting echo also patient leg does not look good and i am worried about deep seated infection Imaging - Results Chest X-ray: Report Reviewed, Image Reviewed Problem List - Problems (1) Sepsis Code(s): A41.9 - SEPSIS, UNSPECIFIED ORGANISM (2) Diabetic foot ulcer Code(s): E11.621 - TYPE 2 DIABETES MELLITUS WITH FOOT ULCER L97.509 - NON-PRESSURE CHRONIC ULCER OTH PRT UNSP FOOT W UNSP SEVERITY (3) Cellulitis of foot Code(s): L03.119 - CELLULITIS OF UNSPECIFIED PART OF LIMB (4) Renal failure (ARF), acute on chronic Code(s): N17.9 - ACUTE KIDNEY FAILURE, UNSPECIFIED N18.9 - CHRONIC KIDNEY DISEASE, UNSPECIFIED (5) CAD (coronary artery disease) Code(s): I25.10 - ATHSCL HEART DISEASE OF [place] CORONARY ARTERY W/O ANG PCTRS Qualifiers: Coronary Disease-Associated Artery/Lesion type: unspecified vessel or lesion type [place] vs. transplanted heart: [place] heart Associated angina: with stable angina Qualified Code(s): I25.119 - Atherosclerotic heart disease of [place] coronary artery with unspecified angina pectoris (6) COPD (chronic obstructive pulmonary disease) Code(s): J44.9 - CHRONIC OBSTRUCTIVE PULMONARY DISEASE, UNSPECIFIED Qualifiers : COPD type: unspecified COPD Qualified Code(s): J44.9 - Chronic obstructive pulmonary disease, unspecified (7) Chronic pain Code(s): G89.29 - OTHER CHRONIC PAIN (8) Diabetes mellitus Code(s): E11.9 - TYPE 2 DIABETES MELLITUS WITHOUT COMPLICATIONS Qualifiers: Diabetes mellitus type: type 1 Diabetes mellitus complication status: with hyperglycemia Qualified Code(s): E10.65 - Type 1 diabetes mellitus with hyperglycemia (9) Hyperlipidemia Code(s): E78.5 - HYPERLIPIDEMIA, UNSPECIFIED (10) Hypertension Code(s): I10 - ESSENTIAL (PRIMARY) HYPERTENSION (11) Tobacco abuse Code(s): Z72.0 - TOBACCO USE mrsa bacteremia back pain ct scan of the back looked at plan continue vanco continue monitoring afebrile await repeat blood cx report continue to monitor wbc still on the higher side cc time 4o min
[2017-01-16] MEDS: SENNOSIDES 8.6MG TABLET (FP) PO SCH ×2 (15:52→21:12)
[2017-01-16] MEDS ORDERED: FUROSEMIDE 40 MG/4 ML INJECTABLE VIAL ONE (15:56)
[2017-01-16] MEDS: VANCOMYCIN 1,500 MG in DEXTROSE 5%-WATER - 500 ML IVPB SCH (16:30)
[2017-01-16] MEDS: ATORVASTATIN CA 40 MG TABLET (FP) PO SCH (21:12)
[2017-01-17] MEDS: oxyCODONE HCL 5 MG TABLET PO PRN ×2 (03:35→12:02)
[2017-01-17] MEDS ORDERED: FUROSEMIDE 40 MG/4 ML INJECTABLE VIAL IVPB ONE (05:22)
[2017-01-17] MEDS: INSULIN SLIDING SCALE (NOVOLOG) 1 VIAL SQ SCH ×4 (06:02→21:36)
[2017-01-17] MEDS: HEPARIN NA (PORCINE) 5,000 UNITS/ML 1ML VIAL SQ SCH ×3 (06:10→21:39)
[2017-01-17] MEDS: morphine SO4 SUSTAINED ACTING 30 MG TABLET.SA PO SCH ×3 (06:11→22:10)
[2017-01-17] MEDS: INSULIN DETEMIR 100 UNITS/ML MDV SQ SCH ×2 (06:11→21:35)
[2017-01-17] MEDS: ALBUTEROL SO4 0.083% IH SOL 2.5 MG/3 ML VIAL.NEB. NEB SCH ×3 (06:41→18:01)
[2017-01-17 08:31] LABS: MCH 28.6 pg (25.7-33.7); MCHC 32.2 g/dl (32.0-35.9); MEAN CELL VOLUME 88.9 fl (80-96); MEAN PLT VOLUME 9.6 fl (7.5-11.1); PLATELET COUNT 280 K/MM3 (134-434); RDW 15.1 % (11.9-15.9); WHITE BLOOD COUNT 26.8 K/mm3 (4.0-10.0)
[2017-01-17 08:40] LABS: CALCIUM 8.2 mg/dL (8.5-10.1); CREATININE 1.5 mg/dL (0.7-1.3); MAGNESIUM 1.7 mg/dL (1.8-2.4); PHOSPHOROUS 2.8 mg/dL (2.5-4.9)
[2017-01-17] MEDS ORDERED: PT OWN MED DRAWER 7, Y5N ONE ×2 (10:05→21:38)
[2017-01-17] MEDS: LACTOBACILLUS ACIDOPHILUS 1 EACH TAB (FP) PO SCH (10:09)
[2017-01-17] MEDS: hydrALAZINE HCL 10 MG TABLET PO SCH ×2 (10:09→22:08)
[2017-01-17] MEDS: METOPROLOL SUCCINATE 50 MG TAB.SR.24H (FP) PO SCH (10:10)
[2017-01-17] MEDS: DOCUSATE SODIUM 100 MG CAPSULE (FP) PO SCH ×2 (10:10→21:39)
[2017-01-17] MEDS: NICOTINE 21 MG/24 HOURS TOPICAL PATCH TD SCH (10:10)
[2017-01-17] MEDS: CLOPIDOGREL BISULFATE 75 MG TABLET (FP) PO SCH (10:10)
[2017-01-17] MEDS: SENNOSIDES 8.6MG TABLET (FP) PO SCH ×2 (10:10→21:39)
[2017-01-17] MEDS: ASPIRIN COATED 81 MG TABLET.EC PO SCH (10:10)
[2017-01-17] MEDS: ACLIDINIUM BROMIDE 400 MCG/INH AERO.POWD IH SCH ×2 (10:11→22:08)
[2017-01-17] MEDS: BUDESONIDE/FORMETEROL FUMARATE 160/4.5 mcg INHALER IH SCH ×2 (10:11→22:08)
[2017-01-17] MEDS: ACETAMINOPHEN 325 MG TABLET (FP) PO PRN (12:04)
--- NOTE | 2017-01-17 12:45 | PN ---
Progress Note, Physician Chief Complaint: Mr Scott complains that his pain is not controlled, however on seeing him he was acutely short of breath and desaturating on 50% venti mask to the high 60%. Says he is coughing but not able to expactorate. No chest pain or nausea vomiting. Acutely ill. - Current Medication List Current Medications: Active Medications Acetaminophen (Tylenol -) 650 mg PO Q6H PRN PRN Reason: FEVER OR PAIN Last Admin: 01/17/17 12:04 Dose: 650 mg Aclidinium [place] (Tudorza -) 1 puff IH BID [facility] Last Admin: 01/17/17 10:11 Dose: 1 puff Albuterol Sulfate (Ventolin 0.083% Nebulizer Soln -) 1 amp NEB QIDR [facility] Last Admin: 01/17/17 11:11 Dose: 1 amp Aspirin (Ecotrin -) 81 mg PO DAILY [facility] Last Admin: 01/17/17 10:10 Dose: 81 mg Atorvastatin Calcium (Lipitor -) 40 mg PO HS [facility] Last Admin: 01/16/17 21:12 Dose: 40 mg Budesonide/Formoterol Fumarate (Symbicort 160/4.5mcg -) 2 puff IH BID [facility] Last Admin: 01/17/17 10:11 Dose: 2 puff Clopidogrel Bisulfate (Plavix -) 75 mg PO DAILY [facility] Last Admin: 01/17/17 10:10 Dose: 75 mg Docusate Sodium (Colace -) 100 mg PO BID [facility] Last Admin: 01/17/17 10:10 Dose: 100 mg Guaifenesin (Mucinex -) 1,200 mg PO BID [facility] Heparin Sodium (Porcine) (Heparin -) 5,000 unit SQ TID [facility] Last Admin: 01/17/17 06:10 Dose: 5,000 unit Hydralazine HCl (Apresoline -) 10 mg PO BID [facility] Last Admin: 01/17/17 10:09 Dose: 10 mg Vancomycin HCl 1,500 mg/ (Dextrose) 500 mls @ 250 mls/hr IVPB Q48H [facility] PRN Reason: Protocol Last Admin: 01/16/17 16:30 Dose: 250 mls/hr Potassium Chloride (Potassium Chloride 10 Meq Premix Ivpb -) 100 mls @ 100 mls/ hr IVPB Q60M [facility] Stop: 01/17/17 14:44 Insulin Aspart (Novolog Vial Sliding Scale -) 1 vial SQ ACHS [facility] PRN Reason: Protocol Last Admin: 01/17/17 11:55 Dose: Not Given Insulin Detemir (Levemir Vial) 50 units SQ HS [facility] Last Admin: 01/16/17 21:20 Dose: 50 units Insulin Detemir (Levemir Vial) 50 units SQ AM [facility] Last Admin: 01/17/17 06:11 Dose: 50 units Lactobacillus Acidophilus (Bacid -) 1 tab PO DAILY [facility] Last Admin: 01/17/17 10:09 Dose: 1 tab Magnesium Sulfate (Magnesium Sulfate) 1 gm IVPB ONCE ONE Stop: 01/17/17 12:33 Metoprolol Succinate (Toprol Xl -) 50 mg PO DAILY [facility] Last Admin: 01/17/17 10:10 Dose: 50 mg Morphine Sulfate (Ms Contin -) 60 mg PO TID [facility] Last Admin: 01/17/17 06:11 Dose: 60 mg Nicotine (Nicoderm Patch -) 21 mg TD DAILY [facility] Last Admin: 01/17/17 10:10 Dose: 21 mg Ondansetron HCl (Zofran Injection) 4 mg IVPB Q6H PRN PRN Reason: NAUSEA Oxycodone HCl (Roxicodone -) 30 mg PO Q4H PRN PRN Reason: PAIN Last Admin: 01/17/17 12:02 Dose: 30 mg Polyethylene Glycol (Miralax (For Daily Use) -) 17 gm PO BID PRN PRN Reason: CONSTIPATION Senna (Senna -) 1 tab PO BID [facility] Last Admin: 01/17/17 10:10 Dose: 1 tab - Objective Vital Signs: Vital Signs Temperature 98.8 F 01/17/17 06:00 Pulse Rate 69 01/17/17 12:11 Respiratory Rate 22 01/17/17 06:00 Blood Pressure 141/76 01/17/17 06:00 O2 Sat by Pulse Oximetry (%) 92 L 01/17/17 12:11 Constitutional: Yes: Moderate Distress Cardiovascular: Yes: Tachycardia. No: Gallop, Murmur, Rub Respiratory: Yes: On Venti-Mask, Rhonchi, Tachypnea. No: Rales, Wheezes Gastrointestinal: Yes: Normal Bowel Sounds, Soft. No: Distention, Tenderness Extremities: Yes: Other (BLE wrapped) Edema: No Labs: CBC, BMP 01/17/17 06:50 01/17/17 06:50 Problem List - Problems (1) Acute respiratory failure Code(s): J96.00 - ACUTE RESPIRATORY FAILURE, UNSP W HYPOXIA OR HYPERCAPNIA (2) Sepsis Code(s): A41.9 - SEPSIS, UNSPECIFIED ORGANISM (3) Diabetic foot ulcer Code(s): E11.621 - TYPE 2 DIABETES MELLITUS WITH FOOT ULCER L97.509 - NON-PRESSURE CHRONIC ULCER OTH PRT UNSP FOOT W UNSP SEVERITY (4) Cellulitis of foot Code(s): L03.119 - CELLULITIS OF UNSPECIFIED PART OF LIMB (5) Renal failure (ARF), acute on chronic Code(s): N17.9 - ACUTE KIDNEY FAILURE, UNSPECIFIED N18.9 - CHRONIC KIDNEY DISEASE, UNSPECIFIED (6) CAD (coronary artery disease) Code(s): I25.10 - ATHSCL HEART DISEASE OF [place] CORONARY ARTERY W/O ANG PCTRS Qualifiers: Coronary Disease-Associated Artery/Lesion type: unspecified vessel or lesion type [place] vs. transplanted heart: [place] heart Associated angina: with stable angina Qualified Code(s): I25.118 - Atherosclerotic heart disease of [place] coronary artery with other forms of angina pectoris (7) COPD (chronic obstructive pulmonary disease) Code(s): J44.9 - CHRONIC OBSTRUCTIVE PULMONARY DISEASE, UNSPECIFIED Qualifiers : COPD type: unspecified COPD Qualified Code(s): J44.9 - Chronic obstructive pulmonary disease, unspecified (8) Chronic pain Code(s): G89.29 - OTHER CHRONIC PAIN (9) Diabetes mellitus Code(s): E11.9 - TYPE 2 DIABETES MELLITUS WITHOUT COMPLICATIONS Qualifiers: Diabetes mellitus type: type 1 Diabetes mellitus complication status: with hyperglycemia Qualified Code(s): E10.65 - Type 1 diabetes mellitus with hyperglycemia (10) Hyperlipidemia Code(s): E78.5 - HYPERLIPIDEMIA, UNSPECIFIED (11) Hypertension Code(s): I10 - ESSENTIAL (PRIMARY) HYPERTENSION (12) Tobacco abuse Code(s): Z72.0 - TOBACCO USE Assessment/Plan (1) Sepsis Assessment/Plan: -still with leukocytosis -continue antibiotics per ID Code(s): A41.9 - SEPSIS, UNSPECIFIED ORGANISM (2) Diabetic foot ulcer Assessment/Plan: -patient with worsening diabetic foot ulcer -ID and podiatry following -blood cultures originally grew MRSA, second set currently negative -continue vancomycin -will need amputation Code(s): E11.621 - TYPE 2 DIABETES MELLITUS WITH FOOT ULCER L97.509 - NON-PRESSURE CHRONIC ULCER OTH PRT UNSP FOOT W UNSP SEVERITY (3) Cellulitis of foot Assessment/Plan: -antibiotics as above -podiatry and ID consulted Code(s): L03.119 - CELLULITIS OF UNSPECIFIED PART OF LIMB (4) Renal failure (ARF), acute on chronic Assessment/Plan: -s/p hydration -at baseline Code(s): N17.9 - ACUTE KIDNEY FAILURE, UNSPECIFIED N18.9 - CHRONIC KIDNEY DISEASE, UNSPECIFIED (5) CAD (coronary artery disease) Assessment/Plan: -continue aspirin and plavix -continue metoprolol -continue lipitor -quiescent Code(s): I25.10 - ATHSCL HEART DISEASE OF [place] CORONARY ARTERY W/O ANG PCTRS Qualifiers: Coronary Disease-Associated Artery/Lesion type: unspecified vessel or lesion type [place] vs. transplanted heart: [place] heart Associated angina: with stable angina Qualified Code(s): I25.119 - Atherosclerotic heart disease of [place] coronary artery with unspecified angina pectoris (6) COPD (chronic obstructive pulmonary disease) Assessment/Plan: -in acute exacerbation with acute respiratory failure -case d/w pulmonary -placed on bipap -stat chest x-ray -abg -await pulmonary recommendations Code(s): J44.9 - CHRONIC OBSTRUCTIVE PULMONARY DISEASE, UNSPECIFIED Qualifiers : COPD type: unspecified COPD Qualified Code(s): J44.9 - Chronic obstructive pulmonary disease, unspecified (7) Chronic pain Assessment/Plan: -will continue patient on his home regimen -suspect will be challenging to control his pain after amputation secondary to this Code(s): G89.29 - OTHER CHRONIC PAIN (8) Diabetes mellitus Assessment/Plan: -appreciate endocrinology assistance -continue levemir 50 units bid -continue SSI -diabetic diet Code(s): E11.9 - TYPE 2 DIABETES MELLITUS WITHOUT COMPLICATIONS Qualifiers: Diabetes mellitus type: type 1 Diabetes mellitus complication status: with hyperglycemia Qualified Code(s): E10.65 - Type 1 diabetes mellitus with hyperglycemia (9) Hyperlipidemia Assessment/Plan: -continue statin Code(s): E78.5 - HYPERLIPIDEMIA, UNSPECIFIED (10) Hypertension Assessment/Plan: -continue hydralazine and metoprolol -monitor Code(s): I10 - ESSENTIAL (PRIMARY) HYPERTENSION (11) Tobacco abuse Assessment/Plan: -nicotine patch Code(s): Z72.0 - TOBACCO USE After being placed on bipap, saturations came up to low 90%. 35 minutes in critical care time spent in care of this patient.
[2017-01-17 13:05] LABS: PLATELET ESTIMATE ADEQUATE (NORMAL)
[2017-01-17] MEDS ORDERED: MAGNESIUM SULF 50% (8.12 MEQ/2 ML-1 GM VIAL) IVPB ONE (13:15)
[2017-01-17 13:34] LABS: ARTERIAL BLD GAS O2 SATURATION 91.7 % (90-98.9); ARTERIAL BLOOD GAS BASE EXCESS 7.5 meq/l (-2-2); ARTERIAL BLOOD GAS HCO3 30.8 meq/L (22-26); ARTERIAL BLOOD GAS PO2 61.6 mmHg (80-100); ARTERIAL BLOOD GAS pH 7.51 (7.35-7.45)
[2017-01-17 13:35] LABS: ALLENS TEST POSITIVE; ART PUNCT SITE RIGHT RADIAL; LPM/O2% 60%; MECH. VENT. BIPAP; PT. ON O2? YES'; TYPE OF O2 BIPAP; VENT RATE 16; VT/PRESS 15/5
[2017-01-17] MEDS ORDERED: FUROSEMIDE 40 MG/4 ML INJECTABLE VIAL IVPUSH ONE (13:46)
--- NOTE | 2017-01-17 14:09 | PN ---
Progress Note (short form) - Note Progress Note: PULMONARY/CCM Called to see patient as he was noted to be hypoxic even with supplemental O2. Pt placed on BiPAP with 60% FiO2, somnolent but arousable. Saturating only 80% on 60% FiO2. Was given lasix 20mg IVP overnight. Last Vital Signs Temp Pulse Resp BP Pulse Ox 98.8 F 69 22 141/76 92 L 01/17/17 06:00 01/17/17 12:11 01/17/17 06:00 01/17/17 06:00 01/17/17 12:11 Intake & Output 01/14/17 01/15/17 01/16/17 01/17/17 23:59 23:59 23:59 23:59 Intake Total 2325 1195 1870 250 Output Total 2100 2200 2100 800 Balance 225 -1005 -230 -550 Weight 197 lb 197 lb 9.6 oz 191 lb 9.6 oz 190 lb 0.6 oz Gen: tachypneic on BiPAP, somnolent but arousable Heart: RRR Lung: bilateral rhonchi, wheezes Abd: soft, nontender Ext: no edema, areas of toe dry necrosis CBC, BMP 01/17/17 06:50 01/17/17 06:50 ABG Results ABG pH 7.51 (7.35-7.45) H 01/17/17 13:30 ABG pCO2 at Pt Temp 38.5 mmHg (35-45) 01/17/17 13:30 ABG pO2 at Pt Temp 61.6 mmHg (80-100) L 01/17/17 13:30 ABG HCO3 30.8 meq/L (22-26) H 01/17/17 13:30 ABG O2 Sat (Measured) 91.7 % (90-98.9) 01/17/17 13:30 ABG O2 Content 17.6 % vol (15-22) 01/17/17 13:30 ABG Base Excess 7.5 meq/l (-2-2) H 01/17/17 13:30 Active Medications Acetaminophen (Tylenol -) 650 mg PO Q6H PRN PRN Reason: FEVER OR PAIN Last Admin: 01/17/17 12:04 Dose: 650 mg Aclidinium [place] (Tudorza -) 1 puff IH BID [facility] Last Admin: 01/17/17 10:11 Dose: 1 puff Albuterol Sulfate (Ventolin 0.083% Nebulizer Soln -) 1 amp NEB QIDR [facility] Last Admin: 01/17/17 11:11 Dose: 1 amp Aspirin (Ecotrin -) 81 mg PO DAILY [facility] Last Admin: 01/17/17 10:10 Dose: 81 mg Atorvastatin Calcium (Lipitor -) 40 mg PO HS [facility] Last Admin: 01/16/17 21:12 Dose: 40 mg Budesonide/Formoterol Fumarate (Symbicort 160/4.5mcg -) 2 puff IH BID [facility] Last Admin: 01/17/17 10:11 Dose: 2 puff Clopidogrel Bisulfate (Plavix -) 75 mg PO DAILY [facility] Last Admin: 01/17/17 10:10 Dose: 75 mg Docusate Sodium (Colace -) 100 mg PO BID [facility] Last Admin: 01/17/17 10:10 Dose: 100 mg Guaifenesin (Mucinex -) 1,200 mg PO BID [facility] Heparin Sodium (Porcine) (Heparin -) 5,000 unit SQ TID [facility] Last Admin: 01/17/17 06:10 Dose: 5,000 unit Hydralazine HCl (Apresoline -) 10 mg PO BID [facility] Last Admin: 01/17/17 10:09 Dose: 10 mg Vancomycin HCl 1,500 mg/ (Dextrose) 500 mls @ 250 mls/hr IVPB Q48H [facility] PRN Reason: Protocol Last Admin: 01/16/17 16:30 Dose: 250 mls/hr Potassium Chloride (Potassium Chloride 10 Meq Premix Ivpb -) 100 mls @ 100 mls/ hr IVPB Q60M [facility] Stop: 01/17/17 15:14 Insulin Aspart (Novolog Vial Sliding Scale -) 1 vial SQ ACHS [facility] PRN Reason: Protocol Last Admin: 01/17/17 11:55 Dose: Not Given Insulin Detemir (Levemir Vial) 50 units SQ HS [facility] Last Admin: 01/16/17 21:20 Dose: 50 units Insulin Detemir (Levemir Vial) 50 units SQ AM [facility] Last Admin: 01/17/17 06:11 Dose: 50 units Lactobacillus Acidophilus (Bacid -) 1 tab PO DAILY [facility] Last Admin: 01/17/17 10:09 Dose: 1 tab Metoprolol Succinate (Toprol Xl -) 50 mg PO DAILY [facility] Last Admin: 01/17/17 10:10 Dose: 50 mg Morphine Sulfate (Ms Contin -) 60 mg PO TID [facility] Last Admin: 01/17/17 06:11 Dose: 60 mg Nicotine (Nicoderm Patch -) 21 mg TD DAILY [facility] Last Admin: 01/17/17 10:10 Dose: 21 mg Ondansetron HCl (Zofran Injection) 4 mg IVPB Q6H PRN PRN Reason: NAUSEA Oxycodone HCl (Roxicodone -) 30 mg PO Q4H PRN PRN Reason: PAIN Last Admin: 01/17/17 12:02 Dose: 30 mg Polyethylene Glycol (Miralax (For Daily Use) -) 17 gm PO BID PRN PRN Reason: CONSTIPATION [place] (Senna -) 1 tab PO BID [facility] Last Admin: 01/17/17 10:10 Dose: 1 tab A/P Acute Hypoxic Respiratory Failure MRSA Bacteremia Cellulitis r/o Osteomyelitis Severe Sepsis Lactic Acidosis Acute on Chronic Renal Failure Acute COPD Exacerbation CAD s/p stents PAD DM Smoker - CXR showing significant worsening of congestion from this AM's film - will give stat lasix 60mg IVP - monitor urine output, creatinine - consider repeat echo to rule out valvular pathology as pt clinically acutely decompensating with what appears to be heart failure and pt net negative for the last 3 days - continue antibiotics - wound care - taper FiO2 to keep SpO2 >90% - inhaled bronchodilators - replete lytes - ASA, plavix - DVT prophylaxis - if no improvement in oxygenation after lasix, will transfer to ICU for closer monitoring CCT 38'
[2017-01-17] MEDS: KCL 10 MEQ IVPB 100 ML IVPB SCH ×2 (15:35→17:37)
[2017-01-17] MEDS: guaiFENesin 600 MG TABLET.ER (FP) PO SCH ×2 (15:36→21:39)
--- NOTE | 2017-01-17 16:48 | PN ---
Progress Note, Physician Chief Complaint: acute hypoxic resp failure History of Present Illness: developed progressive congestive changes on cxr and increasing sob/hypoxia-- started on bipap today. transferred back to icu from floor. last temp 100.8 on 01/15 at 18:00 sleepy, opens eyes but closes them quickly appears comfortable - Current Medication List Current Medications: Active Medications Acetaminophen (Tylenol -) 650 mg PO Q6H PRN PRN Reason: FEVER OR PAIN Last Admin: 01/17/17 12:04 Dose: 650 mg Aclidinium [place] (Tudorza -) 1 puff IH BID [facility] Last Admin: 01/17/17 10:11 Dose: 1 puff Albuterol Sulfate (Ventolin 0.083% Nebulizer Soln -) 1 amp NEB QIDR [facility] Last Admin: 01/17/17 11:11 Dose: 1 amp Aspirin (Ecotrin -) 81 mg PO DAILY [facility] Last Admin: 01/17/17 10:10 Dose: 81 mg Atorvastatin Calcium (Lipitor -) 40 mg PO HS [facility] Last Admin: 01/16/17 21:12 Dose: 40 mg Budesonide/Formoterol Fumarate (Symbicort 160/4.5mcg -) 2 puff IH BID [facility] Last Admin: 01/17/17 10:11 Dose: 2 puff Clopidogrel Bisulfate (Plavix -) 75 mg PO DAILY [facility] Last Admin: 01/17/17 10:10 Dose: 75 mg Docusate Sodium (Colace -) 100 mg PO BID [facility] Last Admin: 01/17/17 10:10 Dose: 100 mg Guaifenesin (Mucinex -) 1,200 mg PO BID [facility] Last Admin: 01/17/17 15:36 Dose: Not Given Heparin Sodium (Porcine) (Heparin -) 5,000 unit SQ TID [facility] Last Admin: 01/17/17 15:37 Dose: 5,000 unit Hydralazine HCl (Apresoline -) 10 mg PO BID [facility] Last Admin: 01/17/17 10:09 Dose: 10 mg Vancomycin HCl 1,500 mg/ (Dextrose) 500 mls @ 250 mls/hr IVPB Q48H [facility] PRN Reason: Protocol Last Admin: 01/16/17 16:30 Dose: 250 mls/hr Insulin Aspart (Novolog Vial Sliding Scale -) 1 vial SQ ACHS [facility] PRN Reason: Protocol Last Admin: 01/17/17 11:55 Dose: Not Given Insulin Detemir (Levemir Vial) 50 units SQ HS [facility] Last Admin: 01/16/17 21:20 Dose: 50 units Insulin Detemir (Levemir Vial) 50 units SQ AM [facility] Last Admin: 01/17/17 06:11 Dose: 50 units Lactobacillus Acidophilus (Bacid -) 1 tab PO DAILY [facility] Last Admin: 01/17/17 10:09 Dose: 1 tab Metoprolol Succinate (Toprol Xl -) 50 mg PO DAILY [facility] Last Admin: 01/17/17 10:10 Dose: 50 mg Morphine Sulfate (Ms Contin -) 60 mg PO TID [facility] Last Admin: 01/17/17 15:37 Dose: Not Given Nicotine (Nicoderm Patch -) 21 mg TD DAILY [facility] Last Admin: 01/17/17 10:10 Dose: 21 mg Ondansetron HCl (Zofran Injection) 4 mg IVPB Q6H PRN PRN Reason: NAUSEA Oxycodone HCl (Roxicodone -) 30 mg PO Q4H PRN PRN Reason: PAIN Last Admin: 01/17/17 12:02 Dose: 30 mg Polyethylene Glycol (Miralax (For Daily Use) -) 17 gm PO BID PRN PRN Reason: CONSTIPATION [place] (Senna -) 1 tab PO BID [facility] Last Admin: 01/17/17 10:10 Dose: 1 tab - Objective Vital Signs: Vital Signs Temperature 98.8 F 01/17/17 06:00 Pulse Rate 80 01/17/17 15:00 Respiratory Rate 25 H 01/17/17 15:00 Blood Pressure 123/82 01/17/17 15:00 O2 Sat by Pulse Oximetry (%) 95 01/17/17 15:40 Constitutional: Yes: No Distress, Calm, Obese Eyes: No: Sclera Icterus HENT: No: Nasal Congestion Cardiovascular: Yes: Regular Rate and Rhythm (decr intensity), S1, S2, Other ( PMI non diplaced). No: JVD (tds (habitus, bipap)), Gallop, Murmur Respiratory: Yes: CTA Bilaterally, Rhonchi (diffusely). No: Accessory Muscle Use Gastrointestinal: Yes: Normal Bowel Sounds, Soft. No: Tenderness Musculoskeletal: Yes: Other (No kyphosis) Extremities: No: Cold Edema: No Integumentary: No: Jaundice Neurological: Yes: Lethargy Psychiatric: No: Agitated Labs: CBC, BMP 01/17/17 06:50 01/17/17 06:50 - ....Imaging Chest X-ray: Report Reviewed, Image Reviewed Assessment/Plan Echo 05/13: mod global HK (TDS for rwma); RV tds; trace AI; no RVSP Echo 12/2016: TDS; LVSF is "at least mildly reduced: RWM assessment tds; nl RV; nl LA; mild MR/TR; no veg seen STAT repeat echo 01/17/17--images reviewed by Dr. Mckeon: no vegetation seen; redundant, highly mobile anterior chorda to anterior MV leaflet--cannot definitively exclude vegetation attached to chord though not highly suspicious. no AV or TV vege seen. no MR/TR/AI. EF mod-severely decr'd, ? global (cannot accurately assess for RWMAs)--suspect EF is 35-40%. RV normal size, fxn not well visualized. acute syst chf, isch CMP: - CXR c/w chf (vascular redistribution, interstitial edema) - no valve dysfunction on rpt echo - etiol of chf is likely mod-severe LV systolic dysfunction with IV hydration contributing; ? sepsis causing some transient myocardial dysfunction as well - s/p lasix 60 ivp x 1 today - rec steinberg to monitor UOP - currently appears comfortable--hold off on further lasix for now - rpt CXR in am - reassess daily renal fxn (overall creat trend improving here, at or better than prior baseline) - con't metoprolol S Aureus Bacteremia/Sepsis: -Source likely non-healing ulcer -Abx as per ICU team -repeat echo with no valve dysfunction; cannot definitively exclude veg on anterior MV chorda but could all be redundant chord--either way, clearly this is not etiologic in his acute chf given no MR present. -repeat BCx's neg to date -remains hemodynamically stable -consider LETICIA when pt more stable respiratory patterson to r/o vegetation on anterior MV chorda, if will change duration of ABX rec'd by ID CAD: -follows with dr roddy suarez cardio -s/p PCI (LIBBY) to 100% occl RPDA in 2004 ([facility]) with patent prior RCA stents at that time, EF 50% then; -s/p anterior STEMI 2011 with [place] LIBBY x 2 to mid LAD then (tenisha); residual dz then included 80% prox D1 (large vessel), 95% mD1; 70%mRCA (pre and post prior stents); 40% RPDA; 60% pCFX; 40% mCFX; 70% dCFX; EF then 37% with AK of apex/AL lindsey and AK of IW; -continue lipitor, plavix, ASA -repeat ECG, serial enzymes to r/o ACS causing acute chf today VTach: -runs of NSVT; -no severe LV dysfunction on echo -replete K (ordered) -K/Mag > 2/4 per usual -cont bb as doing -monitor tele arf on ckd: -improving significantly -IVF, tx of sepsis per crit care HTN: -per home med list, pt on toprol 50 and hydral 10 bid at home -bp stable here -monitor closely given ongoing sepsis Bradycardia - ? mobitz I vs II while sleeping on tele here previously - monitor tele--stable thus far - cont home BB as doing h/o CVA: -dx'd lacunar infarct 02/10 clinically then (slurred speech) -? acute CVA/TIA 11/13, seen by neuro then--ASA added to prior plavix, remains on DAPT DM/hyperglycemia - per crit care/pmd est crit care time 38min
--- NOTE | 2017-01-17 17:20 | PN ---
Progress Note, Physician History of Present Illness: patient went into resp distress now on bipap mentally awake still c/o of back pain - Current Medication List Current Medications: Active Medications Acetaminophen (Tylenol -) 650 mg PO Q6H PRN PRN Reason: FEVER OR PAIN Last Admin: 01/17/17 12:04 Dose: 650 mg Aclidinium [place] (Tudorza -) 1 puff IH BID [facility] Last Admin: 01/17/17 10:11 Dose: 1 puff Albuterol Sulfate (Ventolin 0.083% Nebulizer Soln -) 1 amp NEB QIDR [facility] Last Admin: 01/17/17 11:11 Dose: 1 amp Aspirin (Ecotrin -) 81 mg PO DAILY [facility] Last Admin: 01/17/17 10:10 Dose: 81 mg Atorvastatin Calcium (Lipitor -) 40 mg PO HS [facility] Last Admin: 01/16/17 21:12 Dose: 40 mg Budesonide/Formoterol Fumarate (Symbicort 160/4.5mcg -) 2 puff IH BID [facility] Last Admin: 01/17/17 10:11 Dose: 2 puff Clopidogrel Bisulfate (Plavix -) 75 mg PO DAILY [facility] Last Admin: 01/17/17 10:10 Dose: 75 mg Docusate Sodium (Colace -) 100 mg PO BID [facility] Last Admin: 01/17/17 10:10 Dose: 100 mg Guaifenesin (Mucinex -) 1,200 mg PO BID [facility] Last Admin: 01/17/17 15:36 Dose: Not Given Heparin Sodium (Porcine) (Heparin -) 5,000 unit SQ TID [facility] Last Admin: 01/17/17 15:37 Dose: 5,000 unit Hydralazine HCl (Apresoline -) 10 mg PO BID [facility] Last Admin: 01/17/17 10:09 Dose: 10 mg Vancomycin HCl 1,500 mg/ (Dextrose) 500 mls @ 250 mls/hr IVPB Q48H [facility] PRN Reason: Protocol Last Admin: 01/16/17 16:30 Dose: 250 mls/hr Insulin Aspart (Novolog Vial Sliding Scale -) 1 vial SQ ACHS [facility] PRN Reason: Protocol Last Admin: 01/17/17 11:55 Dose: Not Given Insulin Detemir (Levemir Vial) 50 units SQ [facility] Last Admin: 01/16/17 21:20 Dose: 50 units Insulin Detemir (Levemir Vial) 50 units SQ AM [facility] Last Admin: 01/17/17 06:11 Dose: 50 units Lactobacillus Acidophilus (Bacid -) 1 tab PO DAILY [facility] Last Admin: 01/17/17 10:09 Dose: 1 tab Metoprolol Succinate (Toprol Xl -) 50 mg PO DAILY [facility] Last Admin: 01/17/17 10:10 Dose: 50 mg Morphine Sulfate (Ms Contin -) 60 mg PO TID [facility] Last Admin: 01/17/17 15:37 Dose: Not Given Nicotine (Nicoderm Patch -) 21 mg TD DAILY [facility] Last Admin: 01/17/17 10:10 Dose: 21 mg Ondansetron HCl (Zofran Injection) 4 mg IVPB Q6H PRN PRN Reason: NAUSEA Oxycodone HCl (Roxicodone -) 30 mg PO Q4H PRN PRN Reason: PAIN Last Admin: 01/17/17 12:02 Dose: 30 mg Polyethylene Glycol (Miralax (For Daily Use) -) 17 gm PO BID PRN PRN Reason: CONSTIPATION Senna (Senna -) 1 tab PO BID [facility] Last Admin: 01/17/17 10:10 Dose: 1 tab - Objective Vital Signs: Vital Signs Temperature 98.8 F 01/17/17 06:00 Pulse Rate 80 01/17/17 15:00 Respiratory Rate 25 H 01/17/17 15:00 Blood Pressure 123/82 01/17/17 15:00 O2 Sat by Pulse Oximetry (%) 95 01/17/17 15:40 Constitutional: Yes: Calm, Mild Distress Cardiovascular: Yes: Regular Rate and Rhythm Respiratory: Yes: On BiPap, Poor Air Entry, Rhonchi Gastrointestinal: Yes: Normal Bowel Sounds, Soft Musculoskeletal: Yes: WNL Extremities: Yes: Other (bilateral wounds and non healing ulcers) Integumentary: Yes: Erythema, Other Wound/Incision: Yes: Dressing Dry and Intact Neurological: Yes: Alert, Oriented Psychiatric: Yes: Alert, Oriented Labs: CBC, BMP 01/17/17 06:50 01/17/17 06:50 - ....Imaging Chest X-ray: Report Reviewed, Image Reviewed Assessment/Plan This patient treated couple of days back with cefazolin and flagyl now comes with fulminant infection and in sepsis with gram positive bacteremia i have a strong suspicion that now it might be a resistant organism I dont know how many days he was treated from last infection and how it was done. He has got vanco and zosyn he has very bad kidneys,but he also has severe infection and needs to be covered agree with the patient getting echo also patient leg does not look good and i am worried about deep seated infection Imaging - Results Chest X-ray: Report Reviewed, Image Reviewed Problem List - Problems (1) Sepsis Code(s): A41.9 - SEPSIS, UNSPECIFIED ORGANISM (2) Diabetic foot ulcer Code(s): E11.621 - TYPE 2 DIABETES MELLITUS WITH FOOT ULCER L97.509 - NON-PRESSURE CHRONIC ULCER OTH PRT UNSP FOOT W UNSP SEVERITY (3) Cellulitis of foot Code(s): L03.119 - CELLULITIS OF UNSPECIFIED PART OF LIMB (4) Renal failure (ARF), acute on chronic Code(s): N17.9 - ACUTE KIDNEY FAILURE, UNSPECIFIED N18.9 - CHRONIC KIDNEY DISEASE, UNSPECIFIED (5) CAD (coronary artery disease) Code(s): I25.10 - ATHSCL HEART DISEASE OF [place] CORONARY ARTERY W/O ANG PCTRS Qualifiers: Coronary Disease-Associated Artery/Lesion type: unspecified vessel or lesion type [place] vs. transplanted heart: [place] heart Associated angina: with stable angina Qualified Code(s): I25.119 - Atherosclerotic heart disease of [place] coronary artery with unspecified angina pectoris (6) COPD (chronic obstructive pulmonary disease) Code(s): J44.9 - CHRONIC OBSTRUCTIVE PULMONARY DISEASE, UNSPECIFIED Qualifiers : COPD type: unspecified COPD Qualified Code(s): J44.9 - Chronic obstructive pulmonary disease, unspecified (7) Chronic pain Code(s): G89.29 - OTHER CHRONIC PAIN (8) Diabetes mellitus Code(s): E11.9 - TYPE 2 DIABETES MELLITUS WITHOUT COMPLICATIONS Qualifiers: Diabetes mellitus type: type 1 Diabetes mellitus complication status: with hyperglycemia Qualified Code(s): E10.65 - Type 1 diabetes mellitus with hyperglycemia (9) Hyperlipidemia Code(s): E78.5 - HYPERLIPIDEMIA, UNSPECIFIED (10) Hypertension Code(s): I10 - ESSENTIAL (PRIMARY) HYPERTENSION (11) Tobacco abuse Code(s): Z72.0 - TOBACCO USE mrsa bacteremia back pain resp failure ct scan of the back looked at plan continue vanco check vanco levels tomorrow resp support await for repeat blood cx to be back rest ct current mgmt as per icu cc time 4o min
[2017-01-17 18:36] LABS: TROPONIN I 0.3 ng/ml (0.00-0.05)
[2017-01-17] MEDS: ATORVASTATIN CA 40 MG TABLET (FP) PO SCH (21:39)
--- NOTE | 2017-01-17 23:03 | PN ---
Progress Note (short form) - Note Progress Note: has episodic events dyspnea,cough with chest pressure,blood sugars lower with decrease appetite, Abnormal Lab Results 01/17/17 01/17/17 01/17/17 06:50 06:50 13:30 WBC 26.8 H Monocytes % 11.0 H D ABG pH 7.51 H ABG pO2 at Pt Temp 61.6 L ABG HCO3 30.8 H ABG Base Excess 7.5 H Potassium 3.0 L Chloride 93 L Carbon Dioxide 35 H BUN 60 H Creatinine 1.5 H Random Glucose 157 H D Calcium 8.2 L Magnesium 1.7 L Creatine Kinase Troponin I 01/17/17 17:15 WBC Monocytes % ABG pH ABG pO2 at Pt Temp ABG HCO3 ABG Base Excess Potassium Chloride Carbon Dioxide BUN Creatinine Random Glucose Calcium Magnesium Creatine Kinase 14 L Troponin I 0.30 H D iddm ckd,/diabetic macro and microvascular disease plan:decrease levemir dose since coverage to remain with novolog sliding scale levemir 30 units bid dosing
[2017-01-18 05:52] LABS: MCH 28.9 pg (25.7-33.7); MCHC 32.7 g/dl (32.0-35.9); MEAN CELL VOLUME 88.4 fl (80-96); MEAN PLT VOLUME 9.5 fl (7.5-11.1); PLATELET COUNT 361 K/MM3 (134-434); RDW 14.6 % (11.9-15.9); WHITE BLOOD COUNT 29.5 K/mm3 (4.0-10.0)
[2017-01-18] MEDS: ALBUTEROL SO4 0.083% IH SOL 2.5 MG/3 ML VIAL.NEB. NEB SCH ×3 (06:00→11:48)
[2017-01-18] MEDS: INSULIN DETEMIR 100 UNITS/ML MDV SQ SCH ×2 (06:31→21:46)
[2017-01-18] MEDS: INSULIN SLIDING SCALE (NOVOLOG) 1 VIAL SQ SCH ×4 (06:31→21:46)
[2017-01-18] MEDS: morphine SO4 SUSTAINED ACTING 30 MG TABLET.SA PO SCH ×3 (06:33→21:42)
[2017-01-18] MEDS: HEPARIN NA (PORCINE) 5,000 UNITS/ML 1ML VIAL SQ SCH ×3 (06:33→21:36)
[2017-01-18 06:38] LABS: CALCIUM 8.2 mg/dL (8.5-10.1); CREATININE 1.5 mg/dL (0.7-1.3); PHOSPHOROUS 4.3 mg/dL (2.5-4.9)
[2017-01-18 07:15] LABS: TROPONIN I 0.23 ng/ml (0.00-0.05)
[2017-01-18 07:21] LABS: PLATELET ESTIMATE ADEQUATE (NORMAL)
[2017-01-18] MEDS: METOPROLOL SUCCINATE 50 MG TAB.SR.24H (FP) PO SCH (09:22)
[2017-01-18] MEDS: NICOTINE 21 MG/24 HOURS TOPICAL PATCH TD SCH (09:22)
[2017-01-18] MEDS: CLOPIDOGREL BISULFATE 75 MG TABLET (FP) PO SCH (09:22)
[2017-01-18] MEDS: DOCUSATE SODIUM 100 MG CAPSULE (FP) PO SCH ×2 (09:22→21:27)
[2017-01-18] MEDS: ASPIRIN COATED 81 MG TABLET.EC PO SCH (09:22)
[2017-01-18] MEDS: hydrALAZINE HCL 10 MG TABLET PO SCH (09:23)
[2017-01-18] MEDS: guaiFENesin 600 MG TABLET.ER (FP) PO SCH ×2 (09:23→21:27)
[2017-01-18] MEDS: oxyCODONE HCL 5 MG TABLET PO PRN (09:26)
[2017-01-18] MEDS: BUDESONIDE/FORMETEROL FUMARATE 160/4.5 mcg INHALER IH SCH (09:32)
--- NOTE | 2017-01-18 10:29 | PN ---
Progress Note (short form) - Note Progress Note: Podiatry brief note: L 2nd toe necrotic ulcer with cellulitis to the forefoot. Erythema, swelling improved to the forefoot. Patient not medically stable for any surgery at this time. Will be on standby once medically optimized will likely need 2nd toe amputation. Nadege Velez DPM
--- NOTE | 2017-01-18 10:43 | PN ---
Progress Note, Physician Chief Complaint: Mr Scott says he is thirsty. He says his breathing is still poor. Earlier he took off his mask to eat and dropped down to the 60%s. Now no cp or n/v. - Current Medication List Current Medications: Active Medications Acetaminophen (Tylenol -) 650 mg PO Q6H PRN PRN Reason: FEVER OR PAIN Last Admin: 01/17/17 12:04 Dose: 650 mg Aclidinium [place] (Tudorza -) 1 puff IH BID [facility] Last Admin: 01/17/17 22:08 Dose: 1 puff Albuterol Sulfate (Ventolin 0.083% Nebulizer Soln -) 1 amp NEB QIDR [facility] Last Admin: 01/18/17 06:00 Dose: 1 amp Aspirin (Ecotrin -) 81 mg PO DAILY [facility] Last Admin: 01/18/17 09:22 Dose: 81 mg Atorvastatin Calcium (Lipitor -) 40 mg PO HS [facility] Last Admin: 01/17/17 21:39 Dose: 40 mg Budesonide/Formoterol Fumarate (Symbicort 160/4.5mcg -) 2 puff IH BID [facility] Last Admin: 01/18/17 09:32 Dose: 2 puff Clopidogrel Bisulfate (Plavix -) 75 mg PO DAILY [facility] Last Admin: 01/18/17 09:22 Dose: 75 mg Docusate Sodium (Colace -) 100 mg PO BID [facility] Last Admin: 01/18/17 09:22 Dose: 100 mg Guaifenesin (Mucinex -) 1,200 mg PO BID [facility] Last Admin: 01/18/17 09:23 Dose: 1,200 mg Heparin Sodium (Porcine) (Heparin -) 5,000 unit SQ TID [facility] Last Admin: 01/18/17 06:33 Dose: 5,000 unit Hydralazine HCl (Apresoline -) 10 mg PO BID [facility] Last Admin: 01/18/17 09:23 Dose: 10 mg Vancomycin HCl 1,500 mg/ (Dextrose) 500 mls @ 250 mls/hr IVPB Q48H [facility] PRN Reason: Protocol Last Admin: 01/16/17 16:30 Dose: 250 mls/hr Piperacillin Sod/Tazobactam (Sod 3.375 gm/ Dextrose) 50 mls @ 100 mls/hr IVPB ONCE ONE PRN Reason: Protocol Stop: 01/18/17 11:03 Insulin Aspart (Novolog Vial Sliding Scale -) 1 vial SQ ACHS [facility] PRN Reason: Protocol Last Admin: 01/18/17 06:31 Dose: Not Given Insulin Detemir (Levemir Vial) 30 units SQ AM [facility] Last Admin: 01/18/17 06:31 Dose: Not Given Insulin Detemir (Levemir Vial) 30 units SQ HS [facility] Lactobacillus Acidophilus (Bacid -) 1 tab PO DAILY [facility] Last Admin: 01/17/17 10:09 Dose: 1 tab Metoprolol Succinate (Toprol Xl -) 50 mg PO DAILY [facility] Last Admin: 01/18/17 09:22 Dose: 50 mg Morphine Sulfate (Ms Contin -) 60 mg PO TID [facility] Last Admin: 01/18/17 06:33 Dose: 60 mg Nicotine (Nicoderm Patch -) 21 mg TD DAILY [facility] Last Admin: 01/18/17 09:22 Dose: 21 mg Ondansetron HCl (Zofran Injection) 4 mg IVPB Q6H PRN PRN Reason: NAUSEA Oxycodone HCl (Roxicodone -) 30 mg PO Q4H PRN PRN Reason: PAIN Last Admin: 01/18/17 09:26 Dose: 30 mg Polyethylene Glycol (Miralax (For Daily Use) -) 17 gm PO BID PRN PRN Reason: CONSTIPATION Senna (Senna -) 1 tab PO BID [facility] Last Admin: 01/17/17 21:39 Dose: 1 tab - Objective Vital Signs: Vital Signs Temperature 98.7 F 01/18/17 10:00 Pulse Rate 85 01/18/17 10:00 Respiratory Rate 18 01/18/17 10:00 Blood Pressure 129/68 01/18/17 10:00 O2 Sat by Pulse Oximetry (%) 96 01/18/17 09:28 Constitutional: Yes: No Distress, Calm Cardiovascular: Yes: Tachycardia. No: Gallop, Murmur, Rub Respiratory: Yes: On BiPap, Rhonchi, Wheezes Gastrointestinal: Yes: Normal Bowel Sounds, Soft. No: Distention, Tenderness Extremities: Yes: Erythema, Other (ulceration) Edema: No Labs: CBC, BMP 01/18/17 05:05 01/18/17 05:05 Problem List - Problems (1) Acute respiratory failure Code(s): J96.00 - ACUTE RESPIRATORY FAILURE, UNSP W HYPOXIA OR HYPERCAPNIA (2) Sepsis Code(s): A41.9 - SEPSIS, UNSPECIFIED ORGANISM (3) Diabetic foot ulcer Code(s): E11.621 - TYPE 2 DIABETES MELLITUS WITH FOOT ULCER L97.509 - NON-PRESSURE CHRONIC ULCER OTH PRT UNSP FOOT W UNSP SEVERITY (4) Cellulitis of foot Code(s): L03.119 - CELLULITIS OF UNSPECIFIED PART OF LIMB (5) Renal failure (ARF), acute on chronic Code(s): N17.9 - ACUTE KIDNEY FAILURE, UNSPECIFIED N18.9 - CHRONIC KIDNEY DISEASE, UNSPECIFIED (6) CAD (coronary artery disease) Code(s): I25.10 - ATHSCL HEART DISEASE OF [place] CORONARY ARTERY W/O ANG PCTRS Qualifiers: Coronary Disease-Associated Artery/Lesion type: unspecified vessel or lesion type [place] vs. transplanted heart: [place] heart Associated angina: with stable angina Qualified Code(s): I25.118 - Atherosclerotic heart disease of [place] coronary artery with other forms of angina pectoris (7) COPD (chronic obstructive pulmonary disease) Code(s): J44.9 - CHRONIC OBSTRUCTIVE PULMONARY DISEASE, UNSPECIFIED Qualifiers : COPD type: unspecified COPD Qualified Code(s): J44.9 - Chronic obstructive pulmonary disease, unspecified (8) Chronic pain Code(s): G89.29 - OTHER CHRONIC PAIN (9) Diabetes mellitus Code(s): E11.9 - TYPE 2 DIABETES MELLITUS WITHOUT COMPLICATIONS Qualifiers: Diabetes mellitus type: type 1 Diabetes mellitus complication status: with hyperglycemia Qualified Code(s): E10.65 - Type 1 diabetes mellitus with hyperglycemia (10) Hyperlipidemia Code(s): E78.5 - HYPERLIPIDEMIA, UNSPECIFIED (11) Hypertension Code(s): I10 - ESSENTIAL (PRIMARY) HYPERTENSION (12) Tobacco abuse Code(s): Z72.0 - TOBACCO USE Assessment/Plan (1) Sepsis Assessment/Plan: -suspect has pneumonia with cellulitis and diabetic ulceration -ID following -will add zosyn -await further ID recommendations Code(s): A41.9 - SEPSIS, UNSPECIFIED ORGANISM (2) Diabetic foot ulcer Assessment/Plan: -patient with worsening diabetic foot ulcer -ID and podiatry following -blood cultures originally grew MRSA, second set currently negative -continue vancomycin -will need amputation, however currently not a candidate for surgical intervention -case d/w podiatry Code(s): E11.621 - TYPE 2 DIABETES MELLITUS WITH FOOT ULCER L97.509 - NON-PRESSURE CHRONIC ULCER OTH PRT UNSP FOOT W UNSP SEVERITY (3) Cellulitis of foot Assessment/Plan: -as above Code(s): L03.119 - CELLULITIS OF UNSPECIFIED PART OF LIMB (4) Renal failure (ARF), acute on chronic Assessment/Plan: -s/p hydration -at baseline Code(s): N17.9 - ACUTE KIDNEY FAILURE, UNSPECIFIED N18.9 - CHRONIC KIDNEY DISEASE, UNSPECIFIED (5) CAD (coronary artery disease) Assessment/Plan: -continue aspirin and plavix -continue metoprolol -continue lipitor -quiescent, cardiology following Code(s): I25.10 - ATHSCL HEART DISEASE OF [place] CORONARY ARTERY W/O ANG PCTRS Qualifiers: Coronary Disease-Associated Artery/Lesion type: unspecified vessel or lesion type [place] vs. transplanted heart: [place] heart Associated angina: with stable angina Qualified Code(s): I25.119 - Atherosclerotic heart disease of [place] coronary artery with unspecified angina pectoris (6) COPD (chronic obstructive pulmonary disease) Assessment/Plan: -in acute exacerbation with acute respiratory failure -suspect secondary to pneumonia, HCAP -case d/w Dr [place] -continue bipap, on 80% oxygen -will need steroids -continue bronchodilators Code(s): J44.9 - CHRONIC OBSTRUCTIVE PULMONARY DISEASE, UNSPECIFIED Qualifiers : COPD type: unspecified COPD Qualified Code(s): J44.9 - Chronic obstructive pulmonary disease, unspecified (7) Chronic pain Assessment/Plan: -will continue patient on his home regimen -suspect will be challenging to control his pain after amputation secondary to this Code(s): G89.29 - OTHER CHRONIC PAIN (8) Diabetes mellitus Assessment/Plan: -appreciate endocrinology assistance -now with hypoglycemia -secondary to patient being unable to eat since requires continuous bipap -continue SSI as needed -did not receive levemir secondary to hypoglycemia Code(s): E11.9 - TYPE 2 DIABETES MELLITUS WITHOUT COMPLICATIONS Qualifiers: Diabetes mellitus type: type 1 Diabetes mellitus complication status: with hyperglycemia Qualified Code(s): E10.65 - Type 1 diabetes mellitus with hyperglycemia (9) Hyperlipidemia Assessment/Plan: -continue statin Code(s): E78.5 - HYPERLIPIDEMIA, UNSPECIFIED (10) Hypertension Assessment/Plan: -continue hydralazine and metoprolol -monitor Code(s): I10 - ESSENTIAL (PRIMARY) HYPERTENSION (11) Tobacco abuse Assessment/Plan: -nicotine patch Code(s): Z72.0 - TOBACCO USE 35 minutes spent in critical care time with this patient
[2017-01-18] MEDS ORDERED: PIPERACILLIN/TAZOB 3.375 GM 50 ML IVPB ONE (10:57)
[2017-01-18] MEDS ORDERED: PIPERACILLIN/TAZOB 3.375 GM 50 ML IVPB SCH (11:00)
[2017-01-18] MEDS ORDERED: FUROSEMIDE 40 MG/4 ML INJECTABLE VIAL IVPUSH ONE (11:21)
[2017-01-18] MEDS ORDERED: ALBUTEROL SO4 0.5 % INH SOLN 2.5 MG/0.5 ML VIAL.NEB. NEB PRN (11:23)
[2017-01-18] MEDS: ALBUTEROL SO4 2.5/IPRATROPIUM 0.5 INH SOL 3 ML VIAL.NEB. NEB SCH ×2 (11:51→18:27)
--- NOTE | 2017-01-18 12:08 | PN ---
Teaching Attending Note Name of Resident: Omid Julian ATTENDING PHYSICIAN STATEMENT I saw and evaluated the patient. I reviewed the resident's note and discussed the case with the resident. I agree with the resident's findings and plan as documented. SUBJECTIVE: Pt seen and examined in the ICU. Dependent on BiPAP. Took it off himself earlier with subsequent desaturation and chest pain. Repeat echocardiogram yesterday without acute findings. OBJECTIVE: Last Vital Signs Temp Pulse Resp BP Pulse Ox 98.7 F 86 18 132/69 96 01/18/17 10:00 01/18/17 12:00 01/18/17 12:00 01/18/17 12:00 01/18/17 11:46 Intake & Output 01/15/17 01/16/17 01/17/17 01/18/17 23:59 23:59 23:59 23:59 Intake Total 1195 1870 1040 Output Total 2200 2100 1950 400 Balance -1005 -230 -910 -400 Weight 197 lb 9.6 oz 191 lb 9.6 oz 190 lb 0.6 oz 195 lb 8.8 oz Gen: tachypneic at rest Heart: RRR Lung: bilateral rhonchi Abd: soft, nontender Ext: trace edema, left toe necrosis CBC, BMP 01/18/17 05:05 01/18/17 05:05 Active Medications Acetaminophen (Tylenol -) 650 mg PO Q6H PRN PRN Reason: FEVER OR PAIN Last Admin: 01/17/17 12:04 Dose: 650 mg Albuterol Sulfate (Ventolin 0.083% Nebulizer Soln -) 1 amp NEB QIDR [facility] Last Admin: 01/18/17 11:48 Dose: 1 amp Albuterol Sulfate (Ventolin 0.5% -) 1 amp NEB Q4H PRN PRN Reason: SHORT OF BREATH/WHEEZING Albuterol/Ipratropium (Duoneb -) 1 amp NEB Q6H [facility] Last Admin: 01/18/17 11:51 Dose: Not Given Aspirin (Ecotrin -) 81 mg PO DAILY [facility] Last Admin: 01/18/17 09:22 Dose: 81 mg Atorvastatin Calcium (Lipitor -) 40 mg PO HS [facility] Last Admin: 01/17/17 21:39 Dose: 40 mg Clopidogrel Bisulfate (Plavix -) 75 mg PO DAILY [facility] Last Admin: 01/18/17 09:22 Dose: 75 mg Docusate Sodium (Colace -) 100 mg PO BID [facility] Last Admin: 01/18/17 09:22 Dose: 100 mg Guaifenesin (Mucinex -) 1,200 mg PO BID [facility] Last Admin: 01/18/17 09:23 Dose: 1,200 mg Heparin Sodium (Porcine) (Heparin -) 5,000 unit SQ TID [facility] Last Admin: 01/18/17 06:33 Dose: 5,000 unit Hydralazine HCl (Apresoline -) 10 mg PO BID [facility] Last Admin: 01/18/17 09:23 Dose: 10 mg Vancomycin HCl 1,500 mg/ (Dextrose) 500 mls @ 250 mls/hr IVPB Q48H [facility] PRN Reason: Protocol Last Admin: 01/16/17 16:30 Dose: 250 mls/hr Piperacillin Sod/Tazobactam Sod (Zosyn 3.375gm Ivpb (Pre-Docked)) 50 mls @ 100 mls/hr IVPB ONCE [facility] PRN Reason: Protocol Stop: 01/19/17 10:59 Pantoprazole Sodium 40 mg/ (Sodium Chloride) 100 mls @ 200 mls/hr IVPB BID [facility] Insulin Aspart (Novolog Vial Sliding Scale -) 1 vial SQ ACHS [facility] PRN Reason: Protocol Last Admin: 01/18/17 06:31 Dose: Not Given Insulin Detemir (Levemir Vial) 30 units SQ AM [facility] Last Admin: 01/18/17 06:31 Dose: Not Given Insulin Detemir (Levemir Vial) 30 units SQ HS [facility] Lactobacillus Acidophilus (Bacid -) 1 tab PO DAILY [facility] Last Admin: 01/17/17 10:09 Dose: 1 tab Methylprednisolone Sodium Succinate (Solu-Medrol -) 60 mg IVPB Q8H [facility] Metoprolol Succinate (Toprol Xl -) 50 mg PO DAILY [facility] Last Admin: 01/18/17 09:22 Dose: 50 mg Morphine Sulfate (Ms Contin -) 60 mg PO TID [facility] Last Admin: 01/18/17 06:33 Dose: 60 mg Nicotine (Nicoderm Patch -) 21 mg TD DAILY [facility] Last Admin: 01/18/17 09:22 Dose: 21 mg Ondansetron HCl (Zofran Injection) 4 mg IVPB Q6H PRN PRN Reason: NAUSEA Oxycodone HCl (Roxicodone -) 30 mg PO Q4H PRN PRN Reason: PAIN Last Admin: 01/18/17 09:26 Dose: 30 mg Polyethylene Glycol (Miralax (For Daily Use) -) 17 gm PO BID PRN PRN Reason: CONSTIPATION Potassium Chloride (K-Dur -) 40 meq PO Q4H [facility] Stop: 01/18/17 15:31 Senna (Senna -) 1 tab PO BID [facility] Last Admin: 01/17/17 21:39 Dose: 1 tab ASSESSMENT AND PLAN: Acute Hypoxic Respiratory Failure MRSA Bacteremia Cellulitis r/o Osteomyelitis Severe Sepsis Lactic Acidosis Acute on Chronic Renal Failure Acute COPD Exacerbation CAD s/p stents PAD DM Smoker - continue lasix - monitor urine output, creatinine - continue antibiotics, would broaden coverage but will defer to ID - wound care - taper FiO2 to keep SpO2 >90% - inhaled bronchodilators - replete lytes - ASA, plavix - DVT prophylaxis - pt confirms DNR/DNI status - continue ICU monitoring for now CCT 36'
--- NOTE | 2017-01-18 12:44 | EKG ---
Test Reason : Blood Pressure : / mmHG Vent. Rate : 088 BPM Atrial Rate : 088 BPM P-R Int : 180 ms QRS Dur : 112 ms QT Int : 432 ms P-R-T Axes : 027 -40 073 degrees QTc Int : 522 ms SINUS RHYTHM WITH FREQUENT PREMATURE VENTRICULAR COMPLEXES LEFT AXIS DEVIATION LEFT VENTRICULAR HYPERTROPHY WITH REPOLARIZATION ABNORMALITY INFERIOR INFARCT (CITED ON OR BEFORE 16-SEP-2001) PROLONGED QT ABNORMAL ECG WHEN COMPARED WITH ECG OF 17-JAN-2017 17:53, PREMATURE ATRIAL COMPLEXES ARE NO LONGER PRESENT Confirmed by DELILAH BRADLEY, EDENILSON ([id number]) on 01/18/2017 12:44:03 PM Referred By: Confirmed By:EDENILSON MAZARIEGOS MD
[2017-01-18] MEDS: LACTOBACILLUS ACIDOPHILUS 1 EACH TAB (FP) PO SCH (12:50)
[2017-01-18] MEDS: SENNOSIDES 8.6MG TABLET (FP) PO SCH ×2 (12:51→21:36)
[2017-01-18] MEDS ORDERED: POTASSIUM CHLORIDE 40 MEQ/30 ML UNIT DOSE CUP ONE (13:03)
[2017-01-18] MEDS: methylPREDNISolone NA SUCC 125 MG/2 ML VIAL IVPB SCH ×2 (13:05→20:11)
[2017-01-18] MEDS: PANTOPRAZOLE SODIUM 40 MG in SODIUM CHLORIDE 100 ML IVPB SCH ×2 (13:05→21:46)
[2017-01-18] MEDS: POTASSIUM CHLORIDE TABS 20 MEQ TABLET.ER (FP) PO SCH ×2 (13:05→16:55)
[2017-01-18] MEDS ORDERED: PROPOFOL 100 ML ONE (14:40)
[2017-01-18] MEDS ORDERED: MIDAZOLAM HCL 5 MG/1 ML Single Dose Vial ONE (14:41)
--- NOTE | 2017-01-18 15:14 | PROC ---
Intubation - Intubation Reason for Intubation: Respiratory Failure Time of Intubation: 14:00 Intubation Method: orotracheal Blade used: Glidescope (4) Tube Size (cm): 8.0 Tube position @ lip (cm): 22 Tube position confirmed by: Direct visualization, CO2 detector, Breath sounds Breath Sounds after Intubation: right greater than left Post Intubation Xray: Yes
[2017-01-18] MEDS ORDERED: PROPOFOL 200 MG/20 ML VIAL IVPUSH ONE (15:23)
[2017-01-18] MEDS ORDERED: MIDAZOLAM HCL 5 MG/1 ML Single Dose Vial IVPUSH ONE (15:23)
--- NOTE | 2017-01-18 15:59 | PN ---
Progress Note (short form) - Note Progress Note: Chief Complaint: acute hypoxic resp failure History of Present Illness: Worsened respiratory distress today requiring intubation. Unable to get further ros. Current Medications Acetaminophen (Tylenol -) 650 mg PO Q6H PRN PRN Reason: FEVER OR PAIN Last Admin: 01/17/17 12:04 Dose: 650 mg Albuterol Sulfate (Ventolin 0.5% -) 1 amp NEB Q4H PRN PRN Reason: SHORT OF BREATH/WHEEZING Albuterol/Ipratropium (Duoneb -) 1 amp NEB Q6H [facility] Last Admin: 01/18/17 11:51 Dose: Not Given Aspirin (Ecotrin -) 81 mg PO DAILY [facility] Last Admin: 01/18/17 09:22 Dose: 81 mg Atorvastatin Calcium (Lipitor -) 40 mg PO HS [facility] Last Admin: 01/17/17 21:39 Dose: 40 mg Clopidogrel Bisulfate (Plavix -) 75 mg PO DAILY [facility] Last Admin: 01/18/17 09:22 Dose: 75 mg Docusate Sodium (Colace -) 100 mg PO BID [facility] Last Admin: 01/18/17 09:22 Dose: 100 mg Guaifenesin (Mucinex -) 1,200 mg PO BID [facility] Last Admin: 01/18/17 09:23 Dose: 1,200 mg Heparin Sodium (Porcine) (Heparin -) 5,000 unit SQ TID [facility] Last Admin: 01/18/17 06:33 Dose: 5,000 unit Hydralazine HCl (Apresoline -) 10 mg PO BID [facility] Last Admin: 01/18/17 09:23 Dose: 10 mg Vancomycin HCl 1,500 mg/ (Dextrose) 500 mls @ 250 mls/hr IVPB Q48H [facility] PRN Reason: Protocol Last Admin: 01/16/17 16:30 Dose: 250 mls/hr Piperacillin Sod/Tazobactam Sod (Zosyn 3.375gm Ivpb (Pre-Docked)) 50 mls @ 100 mls/hr IVPB ONCE [facility] PRN Reason: Protocol Stop: 01/19/17 10:59 Last Admin: 01/18/17 12:51 Dose: 100 mls/hr Pantoprazole Sodium 40 mg/ (Sodium Chloride) 100 mls @ 200 mls/hr IVPB BID [facility] Last Admin: 01/18/17 13:05 Dose: 200 mls/hr Fentanyl 500 mcg/ Dextrose 100 mls @ 4 mls/hr IVPB TITR RADHA PRN Reason: 20 MCG/HR Stop: 01/19/17 15:14 Propofol (Diprivan -) 100 mls @ 2.661 mls/hr IVPB TITR RADHA; 5 MCG/KG/MIN PRN Reason: Protocol Insulin Aspart (Novolog Vial Sliding Scale -) 1 vial SQ ACHS RADHA PRN Reason: Protocol Last Admin: 01/18/17 13:06 Dose: Not Given Insulin Detemir (Levemir Vial) 30 units SQ AM [facility] Last Admin: 01/18/17 06:31 Dose: Not Given Insulin Detemir (Levemir Vial) 30 units SQ HS [facility] Lactobacillus Acidophilus (Bacid -) 1 tab PO DAILY [facility] Last Admin: 01/18/17 12:50 Dose: 1 tab Methylprednisolone Sodium Succinate (Solu-Medrol -) 60 mg IVPB Q8H [facility] Last Admin: 01/18/17 13:05 Dose: 60 mg Metoprolol Succinate (Toprol Xl -) 50 mg PO DAILY [facility] Last Admin: 01/18/17 09:22 Dose: 50 mg Morphine Sulfate (Ms Contin -) 60 mg PO TID [facility] Last Admin: 01/18/17 06:33 Dose: 60 mg Nicotine (Nicoderm Patch -) 21 mg TD DAILY [facility] Last Admin: 01/18/17 09:22 Dose: 21 mg Ondansetron HCl (Zofran Injection) 4 mg IVPB Q6H PRN PRN Reason: NAUSEA Oxycodone HCl (Roxicodone -) 30 mg PO Q4H PRN PRN Reason: PAIN Last Admin: 01/18/17 09:26 Dose: 30 mg Polyethylene Glycol (Miralax (For Daily Use) -) 17 gm PO BID PRN PRN Reason: CONSTIPATION Propofol (Diprivan -) 40,000 mcg IVPUSH ONCE ONE Stop: 01/18/17 15:24 Senna (Senna -) 1 tab PO BID [facility] Last Admin: 01/18/17 12:51 Dose: 1 tab Vital Signs - 24 hr 01/17/17 01/17/17 01/17/17 16:00 17:00 17:58 Temperature Pulse Rate 80 61 Respiratory 33 H 18 Rate Blood Pressure 145/87 144/92 O2 Sat by Pulse 96 Oximetry (%) 01/17/17 01/17/17 01/17/17 18:00 20:00 20:24 Temperature 98.6 F 99.6 F Pulse Rate 79 80 Respiratory 29 H 23 Rate Blood Pressure 138/91 115/71 O2 Sat by Pulse 100 Oximetry (%) 01/17/17 01/17/17 01/18/17 20:29 22:00 00:00 Temperature 99.4 F Pulse Rate 85 84 Respiratory 29 H 28 H 31 H Rate Blood Pressure 139/76 141/61 O2 Sat by Pulse 100 Oximetry (%) 01/18/17 01/18/17 01/18/17 02:00 04:00 06:00 Temperature 99.2 F 98.3 F Pulse Rate 83 77 78 Respiratory 29 H 26 H 24 Rate Blood Pressure 144/79 136/74 126/70 O2 Sat by Pulse Oximetry (%) 01/18/17 01/18/17 01/18/17 08:00 09:28 10:00 Temperature 98.7 F Pulse Rate 78 85 Respiratory 18 18 Rate Blood Pressure 131/72 129/68 O2 Sat by Pulse 96 Oximetry (%) 01/18/17 01/18/17 01/18/17 11:46 12:00 15:29 Temperature Pulse Rate 86 87 Respiratory 18 31 H Rate Blood Pressure 132/69 O2 Sat by Pulse 96 96 Oximetry (%) 01/18/17 15:32 Temperature 98.4 F Pulse Rate 88 Respiratory 18 Rate Blood Pressure 98/57 O2 Sat by Pulse Oximetry (%) Most recent BP 72/58 Intake & Output 01/16/17 01/17/17 01/18/17 01/19/17 07:59 07:59 07:59 07:59 Intake Total 1200 1640 790 Output Total 1800 2500 1550 500 Balance -600 -860 -760 -500 Weight 191 lb 9.6 oz 190 lb 0.6 oz 195 lb 8.8 oz Constitutional: Yes: No Distress/sedated Obese Eyes: No: Sclera Icterus HENT: No: Intubated Cardiovascular: Yes: Regular Rate and Rhythm (decr intensity), S1, S2, Other ( PMI non diplaced). No: JVD (tds (habitus, bipap)), Gallop, Murmur Respiratory: Yes: Rhonchi (diffusely). On vent. No: Accessory Muscle Use Gastrointestinal: Yes: Normal Bowel Sounds, Soft. No: Tenderness Musculoskeletal: Yes: Other (No kyphosis) Extremities: cool Edema: No Integumentary: No: Jaundice. + diaphoresis Neurological: Yes: Lethargy Psychiatric: No: Agitated no carotid bruits diminished dp/pt Labs: CBC, BMP 01/18/17 05:05 01/18/17 05:05 Laboratory Tests 01/17/17 01/18/17 01/18/17 17:15 05:05 05:05 Band Neutrophils 2.0 D Random Glucose 40 L* D Magnesium 2.0 Creatine Kinase 14 L Troponin I 0.30 H D 01/18/17 05:05 Band Neutrophils Random Glucose Magnesium Creatine Kinase 12 L Troponin I 0.23 H - ....Imaging Chest X-ray: Report Reviewed, Image Reviewed. Worsened RUL infiltrate. Read as congestive changes on this afternoon's report. By my review, although there may be underlying mild pulmonary edema, RUL infiltrate not consistent with focal pulmonary edema and more consistent with possible pna. Assessment/Plan Echo 05/13: mod global HK (TDS for rwma); RV tds; trace AI; no RVSP Echo 12/2016: TDS; LVSF is "at least mildly reduced: RWM assessment tds; nl RV; nl LA; mild MR/TR; no veg seen EKG 01/18: SR with frequent pvc. LAD, prolonged qt, LVH with repolarization changes. non-specific t wave abnormalities. prior inferior infarct. STAT repeat echo 01/17/17--images reviewed by Dr. Mckeon: no vegetation seen; redundant, highly mobile anterior chorda to anterior MV leaflet--cannot definitively exclude vegetation attached to chord though not highly suspicious. no AV or TV vege seen. no MR/TR/AI. EF mod-severely decr'd, ? global (cannot accurately assess for RWMAs)--suspect EF is 35-40%. RV normal size, fxn not well visualized. tele: SR with pvc's, rare brief nsvt. acute syst chf, isch CMP: - CXR c/w chf (vascular redistribution, interstitial edema) - no valve dysfunction on rpt echo - etiol of chf is likely mod-severe LV systolic dysfunction with IV hydration contributing; ? sepsis causing some transient myocardial dysfunction as well - s/p lasix 60 ivp x 1 01/17. - reassess daily renal fxn - hold metoprolol while hypotensive - 01/18: blood gas 01/17 with metabolic alkalosis and increased bicarb in addition to hypoxia. Therefore, would not diurese further as it may worsen alkalosis. May have underlying congestion contributing to respiratory failure, but can manage with PEEP for now. Additionally, considerable drop in pressure in response to sedation consistent with intravascular depletion. MAP currently 57, high likelihood that patient has pulmonary hypertension, would recommend starting dopamine to keep MAP's above 65. If central line is placed would benefit from CVP monitoring. S Aureus Bacteremia/Sepsis: -Source likely non-healing ulcer -Abx as per ICU team -repeat echo with no valve dysfunction; cannot definitively exclude veg on anterior MV chorda but could all be redundant chord--either way, clearly this is not etiologic in his acute chf given no MR present. -repeat BCx's neg to date -consider LETICIA when pt more stable respiratory patterson to r/o vegetation on anterior MV chorda, if will change duration of ABX rec'd by ID CAD: -follows with dr roddy suarez cardio -s/p PCI (LIBBY) to 100% occl RPDA in 2004 ([email or web address]) with patent prior RCA stents at that time, EF 50% then; -s/p anterior STEMI 2011 with [place] LIBBY x 2 to mid LAD then (tenisha); residual dz then included 80% prox D1 (large vessel), 95% mD1; 70%mRCA (pre and post prior stents); 40% RPDA; 60% pCFX; 40% mCFX; 70% dCFX; EF then 37% with AK of apex/AL lindsey and AK of IW; -continue lipitor, plavix, ASA -repeat ECG without signs of acute ischemia, serial enzymes with intermediate elevation and flat trend not consistent with ACS. VTach: -runs of NSVT; -EF possibly mild decreased on echo -01/18 EKG with prolongation of qt interval in addition to frequent pvc's. --> K/ Mag > 2/4 per usual, cont bb as doing, monitor tele. Will d/c zofran. arf on ckd: -improving significantly -IVF if needed, CVP if possible. tx of sepsis per crit care HTN: -per home med list, pt on toprol 50 and hydral 10 bid at home -now hypotensive s/p intubation/sedation -monitor closely given ongoing sepsis Bradycardia - ? mobitz I vs II while sleeping on tele here previously - monitor tele--stable thus far - holding metoprolol while hypotensive. h/o CVA: -dx'd lacunar infarct 02/10 clinically then (slurred speech) -? acute CVA/TIA 11/13, seen by neuro then--ASA added to prior plavix, remains on DAPT DM/hyperglycemia - per crit care/pmd est crit care time 38min. EKG, CXR's from 01/17 and 01/18 images and reports reviewed. Discussed care with family, nursing and resident.
[2017-01-18 16:23] LABS: ARTERIAL BLD GAS O2 SATURATION 96.4 % (90-98.9); ARTERIAL BLOOD GAS BASE EXCESS 3.5 meq/l (-2-2); ARTERIAL BLOOD GAS HCO3 28.3 meq/L (22-26); ARTERIAL BLOOD GAS pH 7.41 (7.35-7.45)
[2017-01-18 16:24] LABS: ALLENS TEST POSITIVE; ART PUNCT SITE RIGHT RADIAL
[2017-01-18 16:25] LABS: ARTERIAL BLOOD GAS PO2 90.8 mmHg (80-100); LPM/O2% 100%; MECH. VENT. YES; PT. ON O2? YES; TYPE OF O2 MECHANICAL VENT; VENT RATE 12; VT/PRESS 400ML
--- NOTE | 2017-01-18 16:29 | PN ---
Physical Exam: SUBJECTIVE: Patient seen and examined at bedside in ICU. He reported difficulty breathing and having diffuse pain across his back and neck. Per nurse, he had similar episode this morning and improved after receiving pain meds. OBJECTIVE: Vital Signs Period Temp Pulse Resp BP Sys/Chandra Pulse Ox Last 24 Hr 98.3 F-99.6 F 61-86 18-33 115-145/61-92 89-100 GENERAL: Awake, alert, and fully oriented, in acute pulmonary distress on BiPAP 100% HEAD: AT, NC EYES: Pupils equal, round and reactive to light, sclera anicteric, conjunctiva clear EARS, NOSE, THROAT: nares patent, oropharynx clear without exudates LUNGS: loud biphasic rhonchi b/l HEART: RRR, S1 and S2, no murmur, rub ABDOMEN: +bs, soft, non-tender, no rebound, guarding EXTREMITIES: No calf tenderness. No peripheral edema. ABG Results ABG pH 7.51 (7.35-7.45) H 01/17/17 13:30 ABG pCO2 at Pt Temp 38.5 mmHg (35-45) 01/17/17 13:30 ABG pO2 at Pt Temp 61.6 mmHg (80-100) L 01/17/17 13:30 ABG HCO3 30.8 meq/L (22-26) H 01/17/17 13:30 ABG O2 Sat (Measured) 91.7 % (90-98.9) 01/17/17 13:30 ABG O2 Content 17.6 % vol (15-22) 01/17/17 13:30 ABG Base Excess 7.5 meq/l (-2-2) H 01/17/17 13:30 CBCD WBC 29.5 K/mm3 (4.0-10.0) H 01/18/17 05:05 RBC 4.39 M/mm3 (4.00-5.60) 01/18/17 05:05 Hgb 12.7 GM/dL (11.7-16.9) 01/18/17 05:05 Hct 38.8 % (35.4-49) 01/18/17 05:05 MCV 88.4 fl (80-96) 01/18/17 05:05 MCHC 32.7 g/dl (32.0-35.9) 01/18/17 05:05 RDW 14.6 % (11.9-15.9) 01/18/17 05:05 Plt Count 361 K/MM3 (134-434) D 01/18/17 05:05 MPV 9.5 fl (7.5-11.1) 01/18/17 05:05 CMP Sodium 141 mmol/L (136-145) 01/18/17 05:05 Potassium 3.3 mmol/L (3.5-5.1) L 01/18/17 05:05 Chloride 97 mmol/L (98-107) L 01/18/17 05:05 Carbon Dioxide 33 mmol/L (21-32) H 01/18/17 05:05 Anion Gap 11 (8-16) 01/18/17 05:05 BUN 71 mg/dL (7-18) H 01/18/17 05:05 Creatinine 1.5 mg/dL (0.7-1.3) H 01/18/17 05:05 Creat Clearance w eGFR 50.40 (>60) 01/16/17 05:00 Calcium 8.2 mg/dL (8.5-10.1) L 01/18/17 05:05 Total Bilirubin 0.7 mg/dL (0.2-1.0) D 01/16/17 05:00 AST 61 U/L (15-37) H D 01/16/17 05:00 ALT 45 U/L (12-78) D 01/16/17 05:00 Alkaline Phosphatase 128 U/L (45-117) H D 01/16/17 05:00 Total Protein 5.3 g/dl (6.4-8.2) L 01/16/17 05:00 Albumin 2.1 g/dl (3.4-5.0) L 01/16/17 05:00 Intake & Output 01/15/17 01/16/17 01/17/17 01/18/17 23:59 23:59 23:59 23:59 Intake Total 1195 1870 1040 Output Total 2209 2100 1950 400 Balance -1005 -230 -910 -400 Weight 89.63 kg 86.908 kg 86.2 kg 88.7 kg Active Medications Generic Name Dose Route Start Last Admin Trade Name Freq PRN Reason Stop Dose Admin Acetaminophen 650 mg 01/15/17:34 01/17/17 12:04 Tylenol - PO 650 mg Q6H PRN Administration FEVER OR PAIN Albuterol Sulfate 1 amp 01/18/17 11:23 Ventolin 0.5% - NEB Q4H PRN SHORT OF BREATH/WHEEZING Albuterol/Ipratropium 1 amp 01/18/17 11:30 01/18/17 11:51 Duoneb - NEB Not Given Q6H RADHA Aspirin 81 mg 01/16/17 10:00 01/18/17 09:22 Ecotrin - PO 81 mg DAILY RADHA Administration Atorvastatin Calcium 40 mg 01/15/17 22:00 01/17/17 21:39 Lipitor - PO 40 mg HS RADHA Administration Clopidogrel Bisulfate 75 mg 01/16/17 10:00 01/18/17 09:22 Plavix - PO 75 mg DAILY RADHA Administration Docusate Sodium 100 mg 01/15/17 22:00 01/18/17 09:22 Colace - PO 100 mg BID RADHA Administration Guaifenesin 1,200 mg 01/17/17 12:30 01/18/17 09:23 Mucinex - PO 1,200 mg BID RADHA Administration Heparin Sodium (Porcine) 5,000 unit 01/15/17 22:00 01/18/17 06:33 Heparin - SQ 5,000 unit TID RADHA Administration Hydralazine HCl 10 mg 01/15/17 22:00 01/18/17 09:23 Apresoline - PO 10 mg BID RADHA Administration Vancomycin HCl 1,500 mg/ 500 mls @ 250 mls/hr 01/16/17 15:00 01/16/17 16:30 Dextrose IVPB 250 mls/hr Q48H RAD[facility] Administration Protocol Piperacillin Sod/Tazobactam Sod 50 mls @ 100 mls/hr 01/18/17 11:00 01/18/17 12: 51 Zosyn 3.375gm Ivpb (Pre-Docked) IVPB 01/19/17 10:59 100 mls/hr ONCE RADHA Administration Protocol Pantoprazole Sodium 40 mg/ 100 mls @ 200 mls/hr 01/18/17 11:30 01/18/17 13:05 Sodium Chloride IVPB 200 mls/hr BID RADHA Administration Insulin Aspart 1 vial 01/15/17 22:00 01/18/17 13:06 Novolog Vial Sliding Scale - SQ Not Given ACHS [facility] Protocol Insulin Detemir 30 units 01/18/17 07:00 01/18/17 06:31 Levemir Vial SQ Not Given AM [facility] Insulin Detemir 30 units 01/17/17 22:59 Levemir Vial SQ HS [facility] Lactobacillus Acidophilus 1 tab 01/16/17 10:00 01/18/17 12:50 Bacid - PO 1 tab DAILY RADHA Administration Methylprednisolone Sodium Succinate 60 mg 01/18/17 11:30 01/18/17 13:05 Solu-Medrol - IVPB 60 mg Q8H RADHA Administration Metoprolol Succinate 50 mg 01/16/17 10:00 01/18/17 09:22 Toprol Xl - PO 50 mg DAILY [facility] Administration Morphine Sulfate 60 mg 01/15/17 11:00 01/18/17 06:33 Ms Contin - PO 60 mg TID RADHA Administration Nicotine 21 mg 01/16/17 10:00 01/18/17 09:22 Nicoderm Patch - TD 21 mg DAILY [facility] Administration Ondansetron HCl 4 mg 01/15/17 19:34 Zofran Injection IVPB Q6H PRN NAUSEA Oxycodone HCl 30 mg 01/15/17 19:34 01/18/17 09:26 Roxicodone - PO 30 mg Q4H PRN Administration PAIN Polyethylene Glycol 17 gm 01/15/17 19:34 Miralax (For Daily Use) - PO BID PRN CONSTIPATION Potassium Chloride 40 meq 01/18/17 11:30 01/18/17 13:05 K-Dur - PO 01/18/17 15:31 40 meq Q4H RADHA Administration Senna 1 tab 01/16/17 14:00 01/18/17 12:51 Senna - PO 1 tab BID RADHA Administration Imaging CT lower extremities on 01/16: no CT evidence of osteo, retained stool, small inguinal hernia CT spine on 01/16: degenerative changes CXR on 01/18: Segmental right upper lobe infiltrate is noted in the right mid lung zone, worsened in comparison to prior examination. Clinically correlate for segmental right upper lobe pneumonia, atelectasis. Microbiology 01/12/17 21:40 Blood - Peripheral Venous Blood Culture - Final Mr S Aureus 01/12/17 21:40 Blood - Peripheral Venous Blood Culture - Final Mr S Aureus ASSESSMENT/PLAN: 66 yo male h/o HTN, HLD, CHF, COPD, CKD, CVA, CAD s/p stents, DMII with peripheral neuropathy and foot ulcers admitted to the ICU for sepsis and acute respiratory distress. Pulm: Acute respiratory distress - Cont. supplemental O2 * BiPAP PRN - Lasix 40mg IVPUSH today - Maintain O2 Sat. > 88% - Cont. symbicort, tudorza - Nebulizers PRN - Daily CXR to assess fluid accumulation ID: Sepsis 2/2 diabetic foot ulcer and cellulitis - Elevated WBC on steroid, afrebile - MRSA in blood culture - L 2nd toe amputation when stable - On Vanco day 3 and zosyn day 1 Renal: CKD stage 4 - Cr at baseline with daily improvement - Cont. hydration - Dupree PRN - Monitor I/O Endo: DM2 with neuropathy - Cont. levemir and sliding scale - Cont. morphine and oxycodone - BGM Cardiac: CAD s/p stent; HTN - Cont. Asa, plavix, and lipitor - Cont. hydralazine and lopressor - QT prolongation, d/c zofran FEN - No on IVF - Hypokalemia, repleted with KCl PO - PO Diet as tolerated - Prophylaxis - DVT: heparin SQ - GI: on PPI Disposition - Cont. to monitor in ICU Code status - Full code Visit type - Emergency Visit Emergency Visit: No - New Patient This patient is new to me today: No - Critical Care Critical Care patient: Yes Total Critical Care Time (in minutes): 45 Critical Care Statement: The care of this patient involved high complexity decision making to prevent further life threatening deterioration of the patient 's condition and/or to evalute & treat vital organ system(s) failure or risk of failure.
[2017-01-18] MEDS ORDERED: DOPAMINE 400 MG/D5W - 250 ML IVPB ONE (16:31)
[2017-01-18] MEDS: VANCOMYCIN 1,500 MG in DEXTROSE 5%-WATER - 500 ML IVPB SCH (16:53)
[2017-01-18] MEDS: PROPOFOL 100 ML IVPB SCH ×2 (16:53→20:11)
[2017-01-18] MEDS: FENTANYL INJECTION 500 MCG in DEXTROSE 5%-WATER - 90 ML IVPB SCH ×2 (16:54→21:28)
--- NOTE | 2017-01-18 18:07 | PN ---
Progress Note, Physician History of Present Illness: patient became increasingly dyspenic had to be intubated patient now intubated a sedated - Current Medication List Current Medications: Active Medications Acetaminophen (Tylenol -) 650 mg PO Q6H PRN PRN Reason: FEVER OR PAIN Last Admin: 01/17/17 12:04 Dose: 650 mg Albuterol Sulfate (Ventolin 0.5% -) 1 amp NEB Q4H PRN PRN Reason: SHORT OF BREATH/WHEEZING Albuterol/Ipratropium (Duoneb -) 1 amp NEB Q6H [facility] Last Admin: 01/18/17 11:51 Dose: Not Given Aspirin (Ecotrin -) 81 mg PO DAILY [facility] Last Admin: 01/18/17 09:22 Dose: 81 mg Atorvastatin Calcium (Lipitor -) 40 mg PO HS [facility] Last Admin: 01/17/17 21:39 Dose: 40 mg Clopidogrel Bisulfate (Plavix -) 75 mg PO DAILY [facility] Last Admin: 01/18/17 09:22 Dose: 75 mg Docusate Sodium (Colace -) 100 mg PO BID [facility] Last Admin: 01/18/17 09:22 Dose: 100 mg Guaifenesin (Mucinex -) 1,200 mg PO BID [facility] Last Admin: 01/18/17 09:23 Dose: 1,200 mg Heparin Sodium (Porcine) (Heparin -) 5,000 unit SQ TID [facility] Last Admin: 01/18/17 16:53 Dose: 5,000 unit Vancomycin HCl 1,500 mg/ (Dextrose) 500 mls @ 250 mls/hr IVPB Q48H [facility] PRN Reason: Protocol Last Admin: 01/18/17 16:53 Dose: 250 mls/hr Piperacillin Sod/Tazobactam Sod (Zosyn 3.375gm Ivpb (Pre-Docked)) 50 mls @ 100 mls/hr IVPB ONCE [facility] PRN Reason: Protocol Stop: 01/19/17 10:59 Last Admin: 01/18/17 12:51 Dose: 100 mls/hr Pantoprazole Sodium 40 mg/ (Sodium Chloride) 100 mls @ 200 mls/hr IVPB BID [facility] Last Admin: 01/18/17 13:05 Dose: 200 mls/hr Fentanyl 500 mcg/ Dextrose 100 mls @ 4 mls/hr IVPB TITR RADHA PRN Reason: 20 MCG/HR Stop: 01/19/17 15:14 Last Admin: 01/18/17 16:54 Dose: 6 mls/hr Propofol (Diprivan -) 100 mls @ 2.661 mls/hr IVPB TITR RADHA; 5 MCG/KG/MIN PRN Reason: Protocol Last Admin: 01/18/17 16:53 Dose: 18.627 mls/hr Dopamine HCl/Dextrose (Dopamine 400 Mg/D5w -) 250 mls @ 16.631 mls/hr IVPB TITR RADHA; 5 MCG/KG/MIN PRN Reason: Protocol Potassium Chloride (Potassium Chloride 10 Meq Premix Ivpb -) 100 mls @ 100 mls/ hr IVPB Q60M RADHA Stop: 01/18/17 20:14 Insulin Aspart (Novolog Vial Sliding Scale -) 1 vial SQ ACHS RADHA PRN Reason: Protocol Last Admin: 01/18/17 16:55 Dose: 4 units Insulin Detemir (Levemir Vial) 30 units SQ AM [facility] Last Admin: 01/18/17 06:31 Dose: Not Given Insulin Detemir (Levemir Vial) 30 units SQ HS [facility] Lactobacillus Acidophilus (Bacid -) 1 tab PO DAILY [facility] Last Admin: 01/18/17 12:50 Dose: 1 tab Methylprednisolone Sodium Succinate (Solu-Medrol -) 60 mg IVPB Q8H [facility] Last Admin: 01/18/17 13:05 Dose: 60 mg Morphine Sulfate (Ms Contin -) 60 mg PO TID [facility] Last Admin: 01/18/17 16:53 Dose: 60 mg Nicotine (Nicoderm Patch -) 21 mg TD DAILY [facility] Last Admin: 01/18/17 09:22 Dose: 21 mg Oxycodone HCl (Roxicodone -) 30 mg PO Q4H PRN PRN Reason: PAIN Last Admin: 01/18/17 09:26 Dose: 30 mg Polyethylene Glycol (Miralax (For Daily Use) -) 17 gm PO BID PRN PRN Reason: CONSTIPATION Senna (Senna -) 1 tab PO BID [facility] Last Admin: 01/18/17 12:51 Dose: 1 tab - Objective Vital Signs: Vital Signs Temperature 98.4 F 01/18/17 15:32 Pulse Rate 82 01/18/17 17:00 Respiratory Rate 22 01/18/17 17:00 Blood Pressure 166/70 01/18/17 17:00 O2 Sat by Pulse Oximetry (%) 96 01/18/17 15:29 Constitutional: Yes: Other Cardiovascular: Yes: Regular Rate and Rhythm Respiratory: Yes: Intubated, Mechanically Ventilated Gastrointestinal: Yes: Normal Bowel Sounds, Soft Musculoskeletal: Yes: WNL Extremities: Yes: Other (non healing ulcer of the leg) Integumentary: Yes: Erythema, Other Wound/Incision: Yes: Clean/Dry Neurological: Yes: Other Psychiatric: Yes: Other Labs: CBC, BMP 01/18/17 05:05 01/18/17 05:05 - ....Imaging Chest X-ray: Report Reviewed, Image Reviewed Assessment/Plan This patient treated couple of days back with cefazolin and flagyl now comes with fulminant infection and in sepsis with gram positive bacteremia i have a strong suspicion that now it might be a resistant organism I dont know how many days he was treated from last infection and how it was done. He has got vanco and zosyn he has very bad kidneys,but he also has severe infection and needs to be covered agree with the patient getting echo also patient leg does not look good and i am worried about deep seated infection Imaging - Results Chest X-ray: Report Reviewed, Image Reviewed Problem List - Problems (1) Sepsis Code(s): A41.9 - SEPSIS, UNSPECIFIED ORGANISM (2) Diabetic foot ulcer Code(s): E11.621 - TYPE 2 DIABETES MELLITUS WITH FOOT ULCER L97.509 - NON-PRESSURE CHRONIC ULCER OTH PRT UNSP FOOT W UNSP SEVERITY (3) Cellulitis of foot Code(s): L03.119 - CELLULITIS OF UNSPECIFIED PART OF LIMB (4) Renal failure (ARF), acute on chronic Code(s): N17.9 - ACUTE KIDNEY FAILURE, UNSPECIFIED N18.9 - CHRONIC KIDNEY DISEASE, UNSPECIFIED (5) CAD (coronary artery disease) Code(s): I25.10 - ATHSCL HEART DISEASE OF [place] CORONARY ARTERY W/O ANG PCTRS Qualifiers: Coronary Disease-Associated Artery/Lesion type: unspecified vessel or lesion type [place] vs. transplanted heart: [place] heart Associated angina: with stable angina Qualified Code(s): I25.119 - Atherosclerotic heart disease of [place] coronary artery with unspecified angina pectoris (6) COPD (chronic obstructive pulmonary disease) Code(s): J44.9 - CHRONIC OBSTRUCTIVE PULMONARY DISEASE, UNSPECIFIED Qualifiers : COPD type: unspecified COPD Qualified Code(s): J44.9 - Chronic obstructive pulmonary disease, unspecified (7) Chronic pain Code(s): G89.29 - OTHER CHRONIC PAIN (8) Diabetes mellitus Code(s): E11.9 - TYPE 2 DIABETES MELLITUS WITHOUT COMPLICATIONS Qualifiers: Diabetes mellitus type: type 1 Diabetes mellitus complication status: with hyperglycemia Qualified Code(s): E10.65 - Type 1 diabetes mellitus with hyperglycemia (9) Hyperlipidemia Code(s): E78.5 - HYPERLIPIDEMIA, UNSPECIFIED (10) Hypertension Code(s): I10 - ESSENTIAL (PRIMARY) HYPERTENSION (11) Tobacco abuse Code(s): Z72.0 - TOBACCO USE mrsa bacteremia back pain resp failure plan vanco level noted repeat blood cx negative xray looked at agree with adding zosyn continue resp support rest as per icu cc 40 min
[2017-01-18] MEDS: KCL 10 MEQ IVPB 100 ML IVPB SCH ×3 (18:11→20:11)
[2017-01-18] MEDS: DOPAMINE 400 MG/D5W - 250 ML IVPB SCH (18:11)
[2017-01-18] MEDS: ATORVASTATIN CA 40 MG TABLET (FP) PO SCH (21:36)
--- NOTE | 2017-01-18 22:20 | PROC ---
Central Line Insertion Indication: CVP Monitoring, Vasopressor Risks and Benefits Explained: Yes (To , Ingris Scott) Consent on Chart: Yes Central Line: Triple Lumen Catheter Anesthesia: 1% Lidocaine Sterile Technique: Yes Ultrasound Guided Assistance: Yes Position: Right Internal Jugular Post Insertion: Yes: Bilateral Breath Sounds, Bilateral Chest Expansion, Chest X-Ray Ordered Sterile Dressing Applied: Yes Remarks: + flush and blood return x 3.
[2017-01-18] MEDS ORDERED: SODIUM CHLORIDE 250 ML IV STA (23:22)
[2017-01-18] MEDS ORDERED: NOREPINEPHRINE BITARTRATE 4 MG/4 ML ML IV ONE (23:49)
[2017-01-18] MEDS: NOREPINEPHRINE BITARTRATE 8,000 MCG in DEXTROSE 5%-WATER - 492 ML IV SCH (23:59)
[2017-01-19] MEDS: methylPREDNISolone NA SUCC 125 MG/2 ML VIAL IVPB SCH ×3 (02:34→18:38)
[2017-01-19] MEDS ORDERED: SODIUM CHLORIDE 250 ML IV STA ×2 (05:08→05:53)
[2017-01-19] MEDS: ALBUTEROL SO4 2.5/IPRATROPIUM 0.5 INH SOL 3 ML VIAL.NEB. NEB SCH ×5 (06:00→23:12)
[2017-01-19 06:02] LABS: BASOPHIL 0.1 % (0-2.0); MCH 28.4 pg (25.7-33.7); MCHC 32.4 g/dl (32.0-35.9); MEAN CELL VOLUME 87.8 fl (80-96); MEAN PLT VOLUME 9.5 fl (7.5-11.1); NEUTROPHILS 89.3 % (42.8-82.8); PLATELET COUNT 423 K/MM3 (134-434); RDW 15.1 % (11.9-15.9); WHITE BLOOD COUNT 26.3 K/mm3 (4.0-10.0)
[2017-01-19 06:32] LABS: ALBUMIN 1.8 g/dl (3.4-5.0); BILIRUBIN,TOTAL 0.6 mg/dL (0.2-1.0); CALCIUM 7.8 mg/dL (8.5-10.1); CREATININE 1.9 mg/dL (0.7-1.3); MAGNESIUM 2.1 mg/dL (1.8-2.4); PHOSPHOROUS 4.9 mg/dL (2.5-4.9)
[2017-01-19 06:33] LABS: TOT PROT 4.8 g/dl (6.4-8.2)
[2017-01-19 06:37] LABS: TROPONIN I 0.14 ng/ml (0.00-0.05)
[2017-01-19] MEDS: morphine SO4 SUSTAINED ACTING 30 MG TABLET.SA PO SCH ×3 (06:45→21:38)
[2017-01-19] MEDS: INSULIN SLIDING SCALE (NOVOLOG) 1 VIAL SQ SCH ×4 (06:48→22:44)
[2017-01-19] MEDS: INSULIN DETEMIR 100 UNITS/ML MDV SQ SCH ×2 (06:48→22:44)
[2017-01-19] MEDS: PROPOFOL 100 ML IVPB SCH ×2 (06:52→15:23)
[2017-01-19] MEDS: HEPARIN NA (PORCINE) 5,000 UNITS/ML 1ML VIAL SQ SCH ×3 (06:52→21:37)
[2017-01-19 07:14] LABS: ARTERIAL BLD GAS O2 SATURATION 94.2 % (90-98.9); ARTERIAL BLOOD GAS BASE EXCESS 1.8 meq/l (-2-2); ARTERIAL BLOOD GAS HCO3 26.3 meq/L (22-26); ARTERIAL BLOOD GAS PO2 74.7 mmHg (80-100)
[2017-01-19 07:18] LABS: ALLENS TEST POSITIVE; ART PUNCT SITE RIGHT RADIAL; LPM/O2% 70%; PT. ON O2? YES
[2017-01-19 07:19] LABS: MECH. VENT. YES; TYPE OF O2 MECHANICAL VENT; VENT RATE 12; VT/PRESS 400ML
[2017-01-19] MEDS: SODIUM CHLORIDE 1,000 ML IV SCH (09:32)
[2017-01-19] MEDS: NICOTINE 21 MG/24 HOURS TOPICAL PATCH TD SCH (09:33)
[2017-01-19] MEDS: PANTOPRAZOLE SODIUM 40 MG/100 ML PRE-DOCKED IVPB SCH ×2 (09:34→21:37)
[2017-01-19] MEDS: PIPERACILLIN/TAZOB 3.375 GM/50 ML PRE-DOCKED IVPB SCH ×2 (11:27→18:06)
--- NOTE | 2017-01-19 12:40 | PN ---
Teaching Attending Note Name of Resident: Omid Julian ATTENDING PHYSICIAN STATEMENT I saw and evaluated the patient. I reviewed the resident's note and discussed the case with the resident. I agree with the resident's findings and plan as documented. SUBJECTIVE: Pt seen and examined in the ICU. Remains intubated, awake, following commands. Tolerating CPAP/PS 5/5 and subsequently intubated. Started on levophed overnight , received IVF with improvement in BP. OBJECTIVE: Last Vital Signs Temp Pulse Resp BP Pulse Ox 98 F 67 25 H 118/63 96 01/19/17 06:00 01/19/17 09:20 01/19/17 11:35 01/19/17 08:30 01/19/17 09:21 Intake & Output 01/16/17 01/17/17 01/18/17 01/19/17 23:59 23:59 23:59 23:59 Intake Total 1870 7078 170 6003.6 Output Total 2100 1950 1200 500 Balance -230 -910 -500 931.6 Weight 191 lb 9.6 oz 190 lb 0.6 oz 195 lb 8.8 oz 194 lb 10.691 oz Gen: intubated, awake Heart: RRR Lung: scattered rhonchi Abd: soft, nontender Ext: no edema, left 2nd toe with eschar CBC, BMP 01/19/17 05:35 01/19/17 05:35 Active Medications Acetaminophen (Tylenol -) 650 mg PO Q6H PRN PRN Reason: FEVER OR PAIN Last Admin: 01/17/17 12:04 Dose: 650 mg Albuterol Sulfate (Ventolin 0.5% -) 1 amp NEB Q4H PRN PRN Reason: SHORT OF BREATH/WHEEZING Albuterol/Ipratropium (Duoneb -) 1 amp NEB Q6H [facility] Last Admin: 01/19/17 11:05 Dose: 1 amp Aspirin (Ecotrin -) 81 mg PO DAILY [facility] Last Admin: 01/18/17 09:22 Dose: 81 mg Atorvastatin Calcium (Lipitor -) 40 mg PO HS [facility] Last Admin: 01/18/17 21:36 Dose: 40 mg Clopidogrel Bisulfate (Plavix -) 75 mg PO DAILY [facility] Last Admin: 01/18/17 09:22 Dose: 75 mg Docusate Sodium (Colace -) 100 mg PO BID [facility] Last Admin: 01/18/17 21:27 Dose: Not Given Guaifenesin (Mucinex -) 1,200 mg PO BID [facility] Last Admin: 01/18/17 21:27 Dose: Not Given Heparin Sodium (Porcine) (Heparin -) 5,000 unit SQ TID [facility] Last Admin: 01/19/17 06:52 Dose: 5,000 unit Vancomycin HCl 1,500 mg/ (Dextrose) 500 mls @ 250 mls/hr IVPB Q48H [facility] PRN Reason: Protocol Last Admin: 01/18/17 16:53 Dose: 250 mls/hr Fentanyl 500 mcg/ Dextrose 100 mls @ 4 mls/hr IVPB TITR RADHA PRN Reason: 20 MCG/HR Stop: 01/19/17 15:14 Last Titration: 01/19/17 09:15 Dose: 25 mcg/hr Propofol (Diprivan -) 100 mls @ 2.661 mls/hr IVPB TITR RADHA; 5 MCG/KG/MIN PRN Reason: Protocol Last Titration: 01/19/17 08:15 Dose: 0 mcg/kg/min Dopamine HCl/Dextrose (Dopamine 400 Mg/D5w -) 250 mls @ 16.631 mls/hr IVPB TITR RADHA; 5 MCG/KG/MIN PRN Reason: Protocol Last Titration: 01/19/17 00:05 Dose: 0 mcg/kg/min Norepinephrine Bitartrate 8, (000 mcg/ Dextrose) 500 mls @ 18.75 mls/hr IV TITR RADHA; 5 MCG/MIN PRN Reason: Protocol Last Titration: 01/19/17 08:30 Dose: 0 mcg/min Sodium Chloride (Normal Saline -) 1,000 mls @ 42 mls/hr IV ASDIR [facility] Last Admin: 01/19/17 09:32 Dose: 42 mls/hr Insulin Aspart (Novolog Vial Sliding Scale -) 1 vial SQ ACHS [facility] PRN Reason: Protocol Last Admin: 01/19/17 11:34 Dose: 6 units Insulin Detemir (Levemir Vial) 30 units SQ AM [facility] Last Admin: 01/19/17 06:48 Dose: 30 units Insulin Detemir (Levemir Vial) 30 units SQ HS [facility] Last Admin: 01/18/17 21:46 Dose: 30 units Lactobacillus Acidophilus (Bacid -) 1 tab PO DAILY [facility] Last Admin: 01/18/17 12:50 Dose: 1 tab Methylprednisolone Sodium Succinate (Solu-Medrol -) 60 mg IVPB Q8H [facility] Last Admin: 01/19/17 11:34 Dose: 60 mg Morphine Sulfate (Ms Contin -) 60 mg PO TID [facility] Last Admin: 01/19/17 06:45 Dose: Not Given Nicotine (Nicoderm Patch -) 21 mg TD DAILY [facility] Last Admin: 01/19/17 09:33 Dose: 21 mg Oxycodone HCl (Roxicodone -) 30 mg PO Q4H PRN PRN Reason: PAIN Last Admin: 01/18/17 09:26 Dose: 30 mg Pantoprazole Sodium (Protonix 40mg Ivpb (Pre-Docked)) 40 mg IVPB BID [facility] Last Admin: 01/19/17 09:34 Dose: 40 mg Piperacillin Sod/Tazobactam Sod (Zosyn 3.375gm Ivpb (Pre-Docked)) 3.375 gm IVPB Q8H-IV [facility] PRN Reason: Protocol Last Admin: 01/19/17 11:27 Dose: 3.375 gm Polyethylene Glycol (Miralax (For Daily Use) -) 17 gm PO BID PRN PRN Reason: CONSTIPATION Senna (Senna -) 1 tab PO BID [facility] Last Admin: 01/18/17 21:36 Dose: 1 tab ASSESSMENT AND PLAN: Acute Hypoxic Respiratory Failure Likely Aspiration Pneumonia MRSA Bacteremia Cellulitis Severe Sepsis Lactic Acidosis Acute on Chronic Renal Failure Acute COPD Exacerbation CAD s/p stents PAD DM Smoker - wean to extubate - gentle hydration - monitor urine output, creatinine - continue antibiotics - wound care - taper FiO2 to keep SpO2 >90% - inhaled bronchodilators - replete lytes - ASA, plavix - DVT prophylaxis - continue ICU monitoring CCT 38'
--- NOTE | 2017-01-19 12:54 | PN ---
Physical Exam: SUBJECTIVE: Patient seen and examined at bedside in ICU. He was extubated at 12:41PM and tolerating ventimask 40% with all vital signs stable. Per nurse, he's hypotensive overnight and RIJ line was put in, pt was on levophed 2 mcg till this morning. OBJECTIVE: Extubated. Not on pressor. On fentanyl 25mcg for pain. Vital Signs Period Temp Pulse Resp BP Sys/Chandra Pulse Ox Last 24 Hr 98 F-98.8 F 60-88 13-31 84-166/51-75 96-100 GENERAL: Awake, alert, and fully oriented, tolerating Venti-mask 40% HEAD: AT, NC EYES: Pupils equal, round and reactive to light, sclera anicteric, conjunctiva clear EARS, NOSE, THROAT: On venti-mask LUNGS: biphasic rhonchi b/l, less loud HEART: RRR, S1 and S2, no murmur, rub ABDOMEN: +bs, soft, non-tender, no rebound, guarding EXTREMITIES: No peripheral edema. ABG Results ABG pH 7.40 (7.35-7.45) 01/19/17 07:14 ABG pCO2 at Pt Temp 43.0 mmHg (35-45) 01/19/17 07:14 ABG pO2 at Pt Temp 74.7 mmHg (80-100) L 01/19/17 07:14 ABG HCO3 26.3 meq/L (22-26) H 01/19/17 07:14 ABG O2 Sat (Measured) 94.2 % (90-98.9) 01/19/17 07:14 ABG O2 Content 15.0 % vol (15-22) 01/19/17 07:14 ABG Base Excess 1.8 meq/l (-2-2) 01/19/17 07:14 CBCD WBC 26.3 K/mm3 (4.0-10.0) H 01/19/17 05:35 RBC 3.91 M/mm3 (4.00-5.60) L 01/19/17 05:35 Hgb 11.1 GM/dL (11.7-16.9) L D 01/19/17 05:35 Hct 34.4 % (35.4-49) L 01/19/17 05:35 MCV 87.8 fl (80-96) 01/19/17 05:35 MCHC 32.4 g/dl (32.0-35.9) 01/19/17 05:35 RDW 15.1 % (11.9-15.9) 01/19/17 05:35 Plt Count 423 K/MM3 (134-434) 01/19/17 05:35 MPV 9.5 fl (7.5-11.1) 01/19/17 05:35 CMP Sodium 137 mmol/L (136-145) 01/19/17 05:35 Potassium 3.8 mmol/L (3.5-5.1) 01/19/17 05:35 Chloride 98 mmol/L (98-107) 01/19/17 05:35 Carbon Dioxide 27 mmol/L (21-32) 01/19/17 05:35 Anion Gap 12 (8-16) 01/19/17 05:35 BUN 86 mg/dL (7-18) H D 01/19/17 05:35 Creatinine 1.9 mg/dL (0.7-1.3) H D 01/19/17 05:35 Creat Clearance w eGFR 35.43 (>60) 01/19/17 05:35 Calcium 7.8 mg/dL (8.5-10.1) L 01/19/17 05:35 Total Bilirubin 0.6 mg/dL (0.2-1.0) 01/19/17 05:35 AST 25 U/L (15-37) D 01/19/17 05:35 ALT 25 U/L (12-78) D 01/19/17 05:35 Alkaline Phosphatase 135 U/L (45-117) H 01/19/17 05:35 Total Protein 4.8 g/dl (6.4-8.2) L 01/19/17 05:35 Albumin 1.8 g/dl (3.4-5.0) L 01/19/17 05:35 Intake & Output 01/16/17 01/17/17 01/18/17 01/19/17 23:59 23:59 23:59 23:59 Intake Total 1870 8495 261 1670.6 Output Total 2100 1950 1200 500 Balance -230 -910 -500 931.6 Weight 86.908 kg 86.2 kg 88.7 kg 88.3 kg Active Medications Generic Name Dose Route Start Last Admin Trade Name Christianoq PRN Reason Stop Dose Admin Acetaminophen 650 mg 01/15/17 19:34 01/17/17 12:04 Tylenol - PO 650 mg Q6H PRN Administration FEVER OR PAIN Albuterol Sulfate 1 amp 01/18/17 11:23 Ventolin 0.5% - NEB Q4H PRN SHORT OF BREATH/WHEEZING Albuterol/Ipratropium 1 amp 01/18/17 11:30 01/19/17 11:05 Duoneb - NEB 1 amp Q6H RADHA Administration Aspirin 81 mg 01/16/17 10:00 01/18/17 09:22 Ecotrin - PO 81 mg DAILY [facility] Administration Atorvastatin Calcium 40 mg 01/15/17 22:00 01/18/17 21:36 Lipitor - PO 40 mg HS RAD[facility] Administration Clopidogrel Bisulfate 75 mg 01/16/17 10:00 01/18/17 09:22 Plavix - PO 75 mg DAILY [facility] Administration Docusate Sodium 100 mg 01/15/17 22:00 01/18/17 21:27 Colace - PO Not Given BID [facility] Guaifenesin 1,200 mg 01/17/17 12:30 01/18/17 21:27 Mucinex - PO Not Given BID [facility] Heparin Sodium (Porcine) 5,000 unit 01/15/17 22:00 01/19/17 06:52 Heparin - SQ 5,000 unit TID [facility] Administration Vancomycin HCl 1,500 mg/ 500 mls @ 250 mls/hr 01/16/17 15:00 01/18/17 16:53 Dextrose IVPB 250 mls/hr Q48H RAD[facility] Administration Protocol Fentanyl 500 mcg/ Dextrose 100 mls @ 4 mls/hr 01/18/17 15:15 01/19/17 09:15 IVPB 01/19/17 15:14 25 mcg/hr TITR [facility] Titration 20 MCG/HR Propofol 100 mls @ 2.661 mls/hr 01/18/17 15:15 01/19/17 08:15 Diprivan - IVPB 0 mcg/kg/min TITR [facility] Titration Protocol 5 MCG/KG/MIN Dopamine HCl/Dextrose 250 mls @ 16.631 mls/hr 01/18/17 17:15 01/19/17 00:05 Dopamine 400 Mg/D5w - IVPB 0 mcg/kg/min TITR RAD[facility] Titration Protocol 5 MCG/KG/MIN Norepinephrine Bitartrate 8, 500 mls @ 18.75 mls/hr 01/18/17 22:30 01/19/17 08: 30 000 mcg/ Dextrose IV 0 mcg/min TITR RADHA Titration Protocol 5 MCG/MIN Sodium Chloride 1,000 mls @ 42 mls/hr 01/19/17 09:30 01/19/17 09:32 Normal Saline - IV 42 mls/hr ASDIR [facility] Administration Insulin Aspart 1 vial 01/15/17 22:00 01/19/17 11:34 Novolog Vial Sliding Scale - SQ 6 units ACHS RAD[facility] Administration Protocol Insulin Detemir 30 units 01/18/17 07:00 01/19/17 06:48 Levemir Vial SQ 30 units AM [facility] Administration Insulin Detemir 30 units 01/17/17 22:59 01/18/17 21:46 Levemir Vial SQ 30 units HS [facility] Administration Lactobacillus Acidophilus 1 tab 01/16/17 10:00 01/18/17 12:50 Bacid - PO 1 tab DAILY [facility] Administration Methylprednisolone Sodium Succinate 60 mg 01/18/17 11:30 01/19/17 11:34 Solu-Medrol - IVPB 60 mg Q8H RAD[facility] Administration Morphine Sulfate 60 mg 01/15/17 11:00 01/19/17 06:45 Ms Contin - PO Not Given TID [facility] Nicotine 21 mg 01/16/17 10:00 01/19/17 09:33 Nicoderm Patch - TD 21 mg DAILY [facility] Administration Oxycodone HCl 30 mg 01/15/17 19:34 01/18/17 09:26 Roxicodone - PO 30 mg Q4H PRN Administration PAIN Pantoprazole Sodium 40 mg 01/19/17 10:00 01/19/17 09:34 Protonix 40mg Ivpb (Pre-Docked) IVPB 40 mg BID [facility] Administration Piperacillin Sod/Tazobactam Sod 3.375 gm 01/19/17 10:45 01/19/17 11:27 Zosyn 3.375gm Ivpb (Pre-Docked) IVPB 3.375 gm Q8H-IV [facility] Administration Protocol Polyethylene Glycol 17 gm 01/15/17 19:34 Miralax (For Daily Use) - PO BID PRN CONSTIPATION Senna 1 tab 01/16/17 14:00 03/22/17 21:36 Senna - PO 1 tab BID RAD[facility] Administration Imaging CT lower extremities on 01/16: no CT evidence of osteo, retained stool, small inguinal hernia CT spine on 01/16: degenerative changes CXR on 01/19: right infiltrate with possible right hilar adenopathy CXR on 01/18: Segmental right upper lobe infiltrate is noted in the right mid lung zone, worsened in comparison to prior examination. Clinically correlate for segmental right upper lobe pneumonia, atelectasis. 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 Pulm: Acute respiratory distress - Extubated on venti-mask 40% * BiPAP PRN - Maintain O2 Sat. > 88% - Cont. symbicort, tudorza - Solumedrol 60mg Q8H - Nebulizers PRN - Daily CXR ID: Sepsis 2/2 diabetic foot ulcer and cellulitis - Elevated WBC on steroid, afrebile - MRSA in blood culture - L 2nd toe amputation when stable - On Vanco day 4 and zosyn day 2 Renal: CKD stage 4 - Cr worsened due to over-diuresis - Cont. hydration - Monitor I/O Endo: DM2 with neuropathy - Cont. levemir and sliding scale - Cont. morphine and oxycodone - BGM Cardiac: CAD s/p stent; HTN - Cont. Asa, plavix, and lipitor - Hold hydralazine and lopressor due to low BP - Avoid QT prolongation medications - LETICIA when stable FEN - NS 42ml/hr - Normal lytes, cont. to monitor - PO Diet as tolerated Prophylaxis - DVT: heparin SQ - GI: on PPI Disposition - Cont. to monitor in ICU Code status - Full code Visit type - Emergency Visit Emergency Visit: No - New Patient This patient is new to me today: No - Critical Care Critical Care patient: Yes Total Critical Care Time (in minutes): 35 Critical Care Statement: The care of this patient involved high complexity decision making to prevent further life threatening deterioration of the patient 's condition and/or to evalute & treat vital organ system(s) failure or risk of failure.
[2017-01-19] MEDS: LACTOBACILLUS ACIDOPHILUS 1 EACH TAB (FP) PO SCH (13:48)
[2017-01-19] MEDS: CLOPIDOGREL BISULFATE 75 MG TABLET (FP) PO SCH (13:49)
[2017-01-19] MEDS: guaiFENesin 600 MG TABLET.ER (FP) PO SCH ×2 (13:49→21:38)
[2017-01-19] MEDS: SENNOSIDES 8.6MG TABLET (FP) PO SCH ×2 (13:51→21:38)
[2017-01-19] MEDS: ASPIRIN COATED 81 MG TABLET.EC PO SCH (13:51)
[2017-01-19] MEDS: DOCUSATE SODIUM 100 MG CAPSULE (FP) PO SCH ×2 (13:59→21:38)
[2017-01-19] MEDS ORDERED: LORAZEPAM CARPU-JECT 2 MG/ML DISP.SYRIN IVPUSH ONE (14:10)
--- NOTE | 2017-01-19 15:23 | PN ---
Progress Note (short form) - Note Progress Note: Chief Complaint: acute hypoxic resp failure History of Present Illness: S: Pressors and IVF overnight. CVP still 0-3. Cr still worsening. Extubated today. No sob, cp, palps, dizziness. Current Medications Acetaminophen (Tylenol -) 650 mg PO Q6H PRN PRN Reason: FEVER OR PAIN Last Admin: 01/17/17 12:04 Dose: 650 mg Albuterol Sulfate (Ventolin 0.5% -) 1 amp NEB Q4H PRN PRN Reason: SHORT OF BREATH/WHEEZING Albuterol/Ipratropium (Duoneb -) 1 amp NEB Q6H [facility] Last Admin: 01/19/17 11:05 Dose: 1 amp Aspirin (Ecotrin -) 81 mg PO DAILY [facility] Last Admin: 01/19/17 13:51 Dose: 81 mg Atorvastatin Calcium (Lipitor -) 40 mg PO HS [facility] Last Admin: 01/18/17 21:36 Dose: 40 mg Clopidogrel Bisulfate (Plavix -) 75 mg PO DAILY [facility] Last Admin: 01/19/17 13:49 Dose: 75 mg Docusate Sodium (Colace -) 100 mg PO BID [facility] Last Admin: 01/19/17 13:59 Dose: 100 mg Guaifenesin (Mucinex -) 1,200 mg PO BID [facility] Last Admin: 01/19/17 13:49 Dose: 1,200 mg Heparin Sodium (Porcine) (Heparin -) 5,000 unit SQ TID [facility] Last Admin: 01/19/17 13:52 Dose: 5,000 unit Vancomycin HCl 1,500 mg/ (Dextrose) 500 mls @ 250 mls/hr IVPB Q48H [facility] PRN Reason: Protocol Last Admin: 01/18/17 16:53 Dose: 250 mls/hr Propofol (Diprivan -) 100 mls @ 2.661 mls/hr IVPB TITR RADHA; 5 MCG/KG/MIN PRN Reason: Protocol Last Titration: 01/19/17 08:15 Dose: 0 mcg/kg/min Dopamine HCl/Dextrose (Dopamine 400 Mg/D5w -) 250 mls @ 16.631 mls/hr IVPB TITR RADHA; 5 MCG/KG/MIN PRN Reason: Protocol Last Titration: 01/19/17 00:05 Dose: 0 mcg/kg/min Norepinephrine Bitartrate 8, (000 mcg/ Dextrose) 500 mls @ 18.75 mls/hr IV TITR RADHA; 5 MCG/MIN PRN Reason: Protocol Last Titration: 01/19/17 08:30 Dose: 0 mcg/min Sodium Chloride (Normal Saline -) 1,000 mls @ 42 mls/hr IV ASDIR [facility] Last Admin: 01/19/17 09:32 Dose: 42 mls/hr Insulin Aspart (Novolog Vial Sliding Scale -) 1 vial SQ ACHS [facility] PRN Reason: Protocol Last Admin: 01/19/17 11:34 Dose: 6 units Insulin Detemir (Levemir Vial) 30 units SQ AM [facility] Last Admin: 01/19/17 06:48 Dose: 30 units Insulin Detemir (Levemir Vial) 30 units SQ HS [facility] Last Admin: 01/18/17 21:46 Dose: 30 units Lactobacillus Acidophilus (Bacid -) 1 tab PO DAILY [facility] Last Admin: 01/19/17 13:48 Dose: 1 tab Methylprednisolone Sodium Succinate (Solu-Medrol -) 60 mg IVPB Q8H [facility] Last Admin: 01/19/17 11:34 Dose: 60 mg Morphine Sulfate (Ms Contin -) 60 mg PO TID [facility] Last Admin: 01/19/17 14:23 Dose: 60 mg Nicotine (Nicoderm Patch -) 21 mg TD DAILY [facility] Last Admin: 01/19/17 09:33 Dose: 21 mg Oxycodone HCl (Roxicodone -) 30 mg PO Q4H PRN PRN Reason: PAIN Last Admin: 01/18/17 09:26 Dose: 30 mg Pantoprazole Sodium (Protonix 40mg Ivpb (Pre-Docked)) 40 mg IVPB BID [facility] Last Admin: 01/19/17 09:34 Dose: 40 mg Piperacillin Sod/Tazobactam Sod (Zosyn 3.375gm Ivpb (Pre-Docked)) 3.375 gm IVPB Q8H-IV [facility] PRN Reason: Protocol Last Admin: 01/19/17 11:27 Dose: 3.375 gm Polyethylene Glycol (Miralax (For Daily Use) -) 17 gm PO BID PRN PRN Reason: CONSTIPATION Senna (Senna -) 1 tab PO BID [facility] Last Admin: 01/19/17 13:51 Dose: 1 tab Vital Signs Period Temp Pulse Resp BP Sys/Chandra Pulse Ox Last 24 Hr 98 F-98.8 F 60-88 11-31 84-166/51-75 96-100 Intake & Output 01/17/17 01/18/17 01/19/17 01/20/17 07:59 07:59 07:59 07:59 Intake Total 2178 641 6118.6 Output Total 2500 1550 1300 Balance -860 -760 831.6 Weight 190 lb 0.6 oz 195 lb 8.8 oz 194 lb 10.691 oz Constitutional: Yes: No Distress, Obese Eyes: No: Sclera Icterus HENT: No: MMM Cardiovascular: Yes: Regular Rate and Rhythm (decr intensity), S1, S2, Other ( PMI non diplaced). No: JVD (tds (habitus, bipap)), Gallop, Murmur Respiratory: Yes: Rhonchi (diffusely). No: Accessory Muscle Use Gastrointestinal: Yes: Normal Bowel Sounds, Soft. No: Tenderness Musculoskeletal: Yes: Other (No kyphosis) Extremities: cool Edema: No Integumentary: No: Jaundice. + diaphoresis Neurological: Yes: awake, alert Psychiatric: No: Agitated no carotid bruits diminished dp/pt Labs: CBC, BMP 01/19/17 05:35 01/19/17 05:35 Laboratory Tests 01/19/17 01/19/17 01/19/17 05:35 05:35 05:35 Lactic Acid 1.128 Magnesium 2.1 Total Bilirubin 0.6 AST 25 D ALT 25 D Alkaline Phosphatase 135 H Troponin I 0.14 H D Albumin 1.8 L - ....Imaging Chest X-ray: Report Reviewed, Image Reviewed. 01/18 Worsened RUL infiltrate. Read as congestive changes. By my review, although there may be underlying mild pulmonary edema, RUL infiltrate not consistent with focal pulmonary edema and more consistent with possible pna. Repeat CXR: By my review. PNA persists, some improvement in consolidation. Congestive changes slightly worsened. Assessment/Plan Echo 05/13: mod global HK (TDS for rwma); RV tds; trace AI; no RVSP Echo 12/2016: TDS; LVSF is "at least mildly reduced: RWM assessment tds; nl RV; nl LA; mild MR/TR; no veg seen EKG 01/18: SR with frequent pvc. LAD, prolonged qt, LVH with repolarization changes. non-specific t wave abnormalities. prior inferior infarct. STAT repeat echo 01/17/17--images reviewed by Dr. Mckeon: no vegetation seen; redundant, highly mobile anterior chorda to anterior MV leaflet--cannot definitively exclude vegetation attached to chord though not highly suspicious. no AV or TV vege seen. no MR/TR/AI. EF mod-severely decr'd, ? global (cannot accurately assess for RWMAs)--suspect EF is 35-40%. RV normal size, fxn not well visualized. tele: SR with pvc's acute syst chf, isch CMP: - CXR c/w chf (vascular redistribution, interstitial edema) - no valve dysfunction on rpt echo - etiol of chf is likely mod-severe LV systolic dysfunction with IV hydration contributing; ? sepsis causing some transient myocardial dysfunction as well - s/p lasix 60 ivp x 1 01/17. - 01/18: blood gas 01/17 with metabolic alkalosis and increased bicarb in addition to hypoxia. Therefore, would not diurese further as it may worsen alkalosis. May have underlying congestion contributing to respiratory failure, but can manage with PEEP for now. Additionally, considerable drop in pressure in response to sedation consistent with intravascular depletion. MAP 57, high likelihood that patient has pulmonary hypertension, would recommend starting dopamine to keep MAP's above 65. If central line is placed would benefit from CVP monitoring. -01/19: BP stabilized with IVF, minimal pressor support (now off). extubated. CVP remains low. Con't gentle IVF as needed. - hold metoprolol until bp's consistently stable. - daily bmp, weights, I/O S Aureus Bacteremia/Sepsis: -Source likely non-healing ulcer -Abx as per ICU team -repeat echo with no valve dysfunction; cannot definitively exclude veg on anterior MV chorda but could all be redundant chord--either way, clearly this is not etiologic in his acute chf given no MR present. -repeat BCx's neg to date. LETICIA on hold for now. CAD: -follows with dr roddy suarez cardio -s/p PCI (LIBBY) to 100% occl RPDA in 2004 ([facility]) with patent prior RCA stents at that time, EF 50% then; -s/p anterior STEMI 2011 with Emma LIBBY x 2 to mid LAD then ([facility]); residual dz then included 80% prox D1 (large vessel), 95% mD1; 70%mRCA (pre and post prior stents); 40% RPDA; 60% pCFX; 40% mCFX; 70% dCFX; EF then 37% with AK of apex/AL lindsey and AK of IW; -continue lipitor, plavix, ASA -repeat ECG without signs of acute ischemia, serial enzymes with intermediate elevation and flat trend not consistent with ACS. VTach: -runs of NSVT; -EF possibly mild decreased on echo -01/18 EKG with prolongation of qt interval in addition to frequent pvc's. --> K/ Mag > 2/4 per usual, cont bb as doing, monitor tele. Will d/c zofran. - 01/19: tele unremarkable arf on ckd: -improving significantly -IVF as needed, CVP monitoring. tx of sepsis per crit care HTN: -per home med list, pt on toprol 50 and hydral 10 bid at home -now hypotensive s/p intubation/sedation -monitor closely given ongoing sepsis Bradycardia - ? mobitz I vs II while sleeping on tele here previously - monitor tele--stable thus far - holding metoprolol while hypotensive. h/o CVA: -dx'd lacunar infarct 02/10 clinically then (slurred speech) -? acute CVA/TIA 11/13, seen by neuro then--ASA added to prior plavix, remains on DAPT DM/hyperglycemia - per crit care/pmd est crit care time: 35 min
--- NOTE | 2017-01-19 16:20 | PN ---
Physical Exam: SUBJECTIVE: Patient seen and examined in the ICU, at the bedside. Patient states he is anxious. Denies any chest pain, shortness of breath. OBJECTIVE: Ativan 0.5mg Iv push x 1 ordered for anxiety Was extubated today and now on venti mask. On pressors overnight for hypotension Vital Signs Period Temp Pulse Resp BP Sys/Chandra Pulse Ox Last 24 Hr 98 F-98.8 F 60-83 11-25 84-166/51-75 92-100 GENERAL: The patient is awake, alert, and fully oriented, in no acute distress. HEAD: Normal with no signs of trauma. EYES: PERRL, extraocular movements intact, sclera anicteric, conjunctiva clear. No ptosis. ENT: Ears normal, nares patent, oropharynx clear without exudates, moist mucous membranes. NECK: Trachea midline, full range of motion, supple. LUNGS: Breath sounds equal, clear to auscultation bilaterally, no wheezes, no crackles, no accessory muscle use. HEART: Regular rate and rhythm ABDOMEN: Soft, nontender, nondistended, normoactive bowel sounds, no guarding, no rebound, no hepatosplenomegaly, no masses. EXTREMITIES: 2+ pulses, warm, well-perfused, no edema. NEUROLOGICAL: Normal speech, gait not observed. PSYCH: Normal mood, normal affect. SKIN: Warm, dry, normal turgor, no rashes or lesions noted Laboratory Results - last 24 hr 01/18/17 01/18/17 01/19/17 16:20 16:47 00:29 WBC RBC Hgb Hct MCV MCHC RDW Plt Count MPV Neutrophils % Lymphocytes % Monocytes % Eosinophils % Basophils % Puncture Site Right radial ABG pH 7.41 ABG pCO2 at Pt Temp 46.0 H ABG pO2 at Pt Temp 90.8 D ABG HCO3 28.3 H ABG O2 Sat (Measured) 96.4 ABG O2 Content 16.6 ABG Base Excess 3.5 H Alfredo Test Positive O2 Delivery Device Mechanical vent Oxygen Flow Rate 100% Vent Mode A/c Vent Rate 12 Mechanical Rate Yes PEEP 5.0 Pressure Support Vent 400ml Sodium Potassium Chloride Carbon Dioxide Anion Gap BUN Creatinine Creat Clearance w eGFR POC Glucometer [phone] Random Glucose Lactic Acid Calcium Phosphorus Magnesium Total Bilirubin AST ALT Alkaline Phosphatase Creatine Kinase Troponin I Total Protein Albumin 01/19/17 01/19/17 01/19/17 05:35 05:35 05:35 WBC 26.3 H RBC 3.91 L Hgb 11.1 L D Hct 34.4 L MCV 87.8 MCHC 32.4 RDW 15.1 Plt Count 423 MPV 9.5 Neutrophils % 89.3 H Lymphocytes % 7.5 L Monocytes % 3.1 L Eosinophils % 0.0 D Basophils % 0.1 Puncture Site ABG pH ABG pCO2 at Pt Temp ABG pO2 at Pt Temp ABG HCO3 ABG O2 Sat (Measured) ABG O2 Content ABG Base Excess Alfredo Test O2 Delivery Device Oxygen Flow Rate Vent Mode Vent Rate Mechanical Rate PEEP Pressure Support Vent Sodium 137 Potassium 3.8 Chloride 98 Carbon Dioxide 27 Anion Gap 12 BUN 86 H D Creatinine 1.9 H D Creat Clearance w eGFR 35.43 POC Glucometer Random Glucose 272 H D Lactic Acid Calcium 7.8 L Phosphorus 4.9 Magnesium 2.1 Total Bilirubin 0.6 AST 25 D ALT 25 D Alkaline Phosphatase 135 H Creatine Kinase 15 L Troponin I 0.14 H D Total Protein 4.8 L Albumin 1.8 L 01/19/17 01/19/17 01/19/17 05:35 06:40 07:14 WBC RBC Hgb Hct MCV MCHC RDW Plt Count MPV Neutrophils % Lymphocytes % Monocytes % Eosinophils % Basophils % Puncture Site Right radial ABG pH 7.40 ABG pCO2 at Pt Temp 43.0 ABG pO2 at Pt Temp 74.7 L ABG HCO3 26.3 H ABG O2 Sat (Measured) 94.2 ABG O2 Content 15.0 ABG Base Excess 1.8 Alfredo Test Positive O2 Delivery Device Mechanical vent Oxygen Flow Rate 70% Vent Mode A/c Vent Rate 12 Mechanical Rate Yes PEEP 5.0 Pressure Support Vent 400ml Sodium Potassium Chloride Carbon Dioxide Anion Gap BUN Creatinine Creat Clearance w eGFR POC Glucometer [phone] Random Glucose Lactic Acid 1.128 Calcium Phosphorus Magnesium Total Bilirubin AST ALT Alkaline Phosphatase Creatine Kinase Troponin I Total Protein Albumin 01/19/17 11:33 WBC RBC Hgb Hct MCV MCHC RDW Plt Count MPV Neutrophils % Lymphocytes % Monocytes % Eosinophils % Basophils % Puncture Site ABG pH ABG pCO2 at Pt Temp ABG pO2 at Pt Temp ABG HCO3 ABG O2 Sat (Measured) ABG O2 Content ABG Base Excess Alfredo Test O2 Delivery Device Oxygen Flow Rate Vent Mode Vent Rate Mechanical Rate PEEP Pressure Support Vent Sodium Potassium Chloride Carbon Dioxide Anion Gap BUN Creatinine Creat Clearance w eGFR POC Glucometer [phone] Random Glucose Lactic Acid Calcium Phosphorus Magnesium Total Bilirubin AST ALT Alkaline Phosphatase Creatine Kinase Troponin I Total Protein Albumin Active Medications Generic Name Dose Route Start Last Admin Trade Name Freq PRN Reason Stop Dose Admin Acetaminophen 650 mg 01/15/17 19:34 01/17/17 12:04 Tylenol - PO 650 mg Q6H PRN Administration FEVER OR PAIN Albuterol Sulfate 1 amp 01/18/17 11:23 Ventolin 0.5% - NEB Q4H PRN SHORT OF BREATH/WHEEZING Albuterol/Ipratropium 1 amp 01/18/17 11:30 01/19/17 11:05 Duoneb - NEB 1 amp Q6H RADHA Administration Aspirin 81 mg 01/16/17 10:00 01/19/17 13:51 Ecotrin - PO 81 mg DAILY RADHA Administration Atorvastatin Calcium 40 mg 01/15/17 22:00 01/18/17 21:36 Lipitor - PO 40 mg HS RADHA Administration Clopidogrel Bisulfate 75 mg 01/16/17 10:00 01/19/17 13:49 Plavix - PO 75 mg DAILY RADHA Administration Docusate Sodium 100 mg 01/15/17 22:00 01/19/17 13:59 Colace - PO 100 mg BID RADHA Administration Guaifenesin 1,200 mg 01/17/17 12:30 01/19/17 13:49 Mucinex - PO 1,200 mg BID RADHA Administration Heparin Sodium (Porcine) 5,000 unit 01/15/17 22:00 01/19/17 13:52 Heparin - SQ 5,000 unit TID RADHA Administration Vancomycin HCl 1,500 mg/ 500 mls @ 250 mls/hr 01/16/17 15:00 01/18/17 16:53 Dextrose IVPB 250 mls/hr Q48H RADHA Administration Protocol Propofol 100 mls @ 2.661 mls/hr 01/18/17 15:15 01/19/17 15:23 Diprivan - IVPB Not Given TITR RADHA Protocol 5 MCG/KG/MIN Dopamine HCl/Dextrose 250 mls @ 16.631 mls/hr 01/18/17 17:15 01/19/17 00:05 Dopamine 400 Mg/D5w - IVPB 0 mcg/kg/min TITR RADHA Titration Protocol 5 MCG/KG/MIN Norepinephrine Bitartrate 8, 500 mls @ 18.75 mls/hr 01/18/17 22:30 01/19/17 08: 30 000 mcg/ Dextrose IV 0 mcg/min TITR RADHA Titration Protocol 5 MCG/MIN Sodium Chloride 1,000 mls @ 42 mls/hr 01/19/17 09:30 01/19/17 09:32 Normal Saline - IV 42 mls/hr ASDIR RADHA Administration Insulin Aspart 1 vial 01/15/17 22:00 01/19/17 11:34 Novolog Vial Sliding Scale - SQ 6 units ACHS RADHA Administration Protocol Insulin Detemir 30 units 01/18/17 07:00 01/19/17 06:48 Levemir Vial SQ 30 units AM RDAHA Administration Insulin Detemir 30 units 01/17/17 22:59 01/18/17 21:46 Levemir Vial SQ 30 units HS RADHA Administration Lactobacillus Acidophilus 1 tab 01/16/17 10:00 01/19/17 13:48 Bacid - PO 1 tab DAILY RADHA Administration Methylprednisolone Sodium Succinate 60 mg 01/18/17 11:30 01/19/17 11:34 Solu-Medrol - IVPB 60 mg Q8H RADHA Administration Morphine Sulfate 60 mg 01/15/17 11:00 01/19/17 14:23 Ms Contin - PO 60 mg TID RADHA Administration Nicotine 21 mg 01/16/17 10:00 01/19/17 09:33 Nicoderm Patch - TD 21 mg DAILY RADHA Administration Oxycodone HCl 30 mg 01/15/17 19:34 01/18/17 09:26 Roxicodone - PO 30 mg Q4H PRN Administration PAIN Pantoprazole Sodium 40 mg 01/19/17 10:00 01/19/17 09:34 Protonix 40mg Ivpb (Pre-Docked) IVPB 40 mg BID RADHA Administration Piperacillin Sod/Tazobactam Sod 3.375 gm 01/19/17 10:45 01/19/17 11:27 Zosyn 3.375gm Ivpb (Pre-Docked) IVPB 3.375 gm Q8H-IV RADHA Administration Protocol Polyethylene Glycol 17 gm 01/15/17 19:34 Miralax (For Daily Use) - PO BID PRN CONSTIPATION Senna 1 tab 01/16/17 14:00 01/19/17 13:51 Senna - PO 1 tab BID RADHA Administration ASSESSMENT/PLAN: Patient is 66 year old male with a past medical history of hypertension, hyperlipidemia, CHF, COPD, CKD, CAD s/p stents, diabetes with diabetic neuropathy and bilateral foot ulcers. He was admitted to the ICU for sepsis and acute respiratory distress. Pulmonary: Acute Respiratory Distress Assessment/Plan: Extubated today and now on venti mask at 40% with 02 sats @ 91% On symbicort, and Solumedrol 60mg q 8 IV Allbuterol PRN Patient is a DNR/DNI Monitor respiratory status Bipap as needed Cardiology: Hypertension/CAD Assessment/Plan: Hypotensive overnight Holding hydralazine and lopressor due to low BP LETICIA when stable Cardiology following ID: Sepsis - secondary to bilateral foot ulcers and cellulitis Assessment/Plan:: On Vancomycin started 01/16/2017 Zosyn started 01/19/2017 +mrsa in blood cultures Monitor vitals : Chronic Kidney Disease Assessment/Plan: Bun/Creat 86/1.9 Renal following monitor intake and output Endocrine: Diabetes Mellitus Assessment/Plan: On Levemir and sliding scale monitor BGMs F.E.N Fluids: Normal saline 42ml/hr Electrolytes: monitor electrolytes Nutrition: as tolerated Prophylaxis DVT: heparin TID SQ GI: on Protonix Disposition: Requires ICU monitoring. DNR/DNI. Visit type - Emergency Visit Emergency Visit: Yes ED Registration Date: 01/12/17 Care time: The patient presented to the Emergency Department on the above date and was hospitalized for further evaluation of their emergent condition. - New Patient This patient is new to me today: Yes Date on this admission: 02/18/17 - Critical Care Critical Care patient: Yes Total Critical Care Time (in minutes): 30 Critical Care Statement: The care of this patient involved high complexity decision making to prevent further life threatening deterioration of the patient 's condition and/or to evalute & treat vital organ system(s) failure or risk of failure. - Discharge Referral Referred to [facility] No
--- NOTE | 2017-01-19 17:12 | EKG ---
Test Reason : Blood Pressure : / mmHG Vent. Rate : 081 BPM Atrial Rate : 081 BPM P-R Int : 186 ms QRS Dur : 114 ms QT Int : 474 ms P-R-T Axes : 026 -39 112 degrees QTc Int : 550 ms SINUS RHYTHM WITH FREQUENT and consecutive PREMATURE VENTRICULAR COMPLEXES AND PREMATURE ATRIAL COMPLEXES LEFT AXIS DEVIATION LEFT VENTRICULAR HYPERTROPHY WITH REPOLARIZATION ABNORMALITY INFERIOR INFARCT (CITED ON OR BEFORE 16-SEP-2001) PROLONGED QT ABNORMAL ECG WHEN COMPARED WITH ECG OF 12-JAN-2017 23:00, SIGNIFICANT CHANGES HAVE OCCURRED Confirmed by JOAO MAYEN MD ([id number]) on 01/19/2017 5:12:44 PM Referred By: Confirmed By:JOAO MAYEN MD
[2017-01-19] MEDS: DOPAMINE 400 MG/D5W - 250 ML IVPB SCH (17:30)
[2017-01-19] MEDS: ATORVASTATIN CA 40 MG TABLET (FP) PO SCH (21:38)
[2017-01-19] MEDS ORDERED: INSULIN DETEMIR 100 UNITS/ML MDV SQ SCH (22:16)
[2017-01-19] MEDS: NOREPINEPHRINE BITARTRATE 8,000 MCG in DEXTROSE 5%-WATER - 492 ML IV SCH (22:44)
[2017-01-20] MEDS: oxyCODONE HCL 5 MG TABLET PO PRN (00:16)
--- NOTE | 2017-01-20 01:42 | PN ---
Progress Note (short form) - Note Progress Note: sp respiratory failure,extubated now feel hungry steroid likely source Current Active Problems Acute respiratory failure (Acute) Bacteremia (Acute) Cellulitis of foot (Acute) Chest pain (Acute) Sepsis (Acute) Abnormal Lab Results 01/19/17 01/19/17 01/19/17 05:35 05:35 05:35 WBC 26.3 H RBC 3.91 L Hgb 11.1 L D Hct 34.4 L Neutrophils % 89.3 H Lymphocytes % 7.5 L Monocytes % 3.1 L ABG pO2 at Pt Temp ABG HCO3 BUN 86 H D Creatinine 1.9 H D Random Glucose 272 H D Calcium 7.8 L Alkaline Phosphatase 135 H Creatine Kinase 15 L Troponin I 0.14 H D Total Protein 4.8 L Albumin 1.8 L 01/19/17 07:14 WBC RBC Hgb Hct Neutrophils % Lymphocytes % Monocytes % ABG pO2 at Pt Temp 74.7 L ABG HCO3 26.3 H BUN Creatinine Random Glucose Calcium Alkaline Phosphatase Creatine Kinase Troponin I Total Protein Albumin plan: hyperglycemia iddm with insulin resistant source levemir dose to increased glucose levels 45 am/30 hs
[2017-01-20] MEDS: PIPERACILLIN/TAZOB 3.375 GM/50 ML PRE-DOCKED IVPB SCH ×3 (02:00→18:32)
[2017-01-20] MEDS: methylPREDNISolone NA SUCC 125 MG/2 ML VIAL IVPB SCH ×2 (04:19→11:06)
[2017-01-20 05:48] LABS: MCH 28.5 pg (25.7-33.7); MCHC 32.6 g/dl (32.0-35.9); MEAN CELL VOLUME 87.6 fl (80-96); MEAN PLT VOLUME 9.4 fl (7.5-11.1); PLATELET COUNT 442 K/MM3 (134-434); WHITE BLOOD COUNT 29.4 K/mm3 (4.0-10.0)
[2017-01-20] MEDS: ALBUTEROL SO4 2.5/IPRATROPIUM 0.5 INH SOL 3 ML VIAL.NEB. NEB SCH ×3 (06:07→17:38)
[2017-01-20] MEDS: morphine SO4 SUSTAINED ACTING 30 MG TABLET.SA PO SCH ×3 (06:18→21:16)
[2017-01-20] MEDS: HEPARIN NA (PORCINE) 5,000 UNITS/ML 1ML VIAL SQ SCH ×3 (06:19→21:15)
[2017-01-20 06:29] LABS: ALBUMIN 1.8 g/dl (3.4-5.0); CALCIUM 7.9 mg/dL (8.5-10.1); MAGNESIUM 2.3 mg/dL (1.8-2.4)
[2017-01-20 06:32] LABS: BILIRUBIN,TOTAL 0.6 mg/dL (0.2-1.0); CREATININE 1.8 mg/dL (0.7-1.3); TOT PROT 4.9 g/dl (6.4-8.2)
[2017-01-20] MEDS: INSULIN SLIDING SCALE (NOVOLOG) 1 VIAL SQ SCH ×4 (06:39→21:21)
[2017-01-20] MEDS: PANTOPRAZOLE SODIUM 40 MG/100 ML PRE-DOCKED IVPB SCH ×2 (09:00→21:18)
[2017-01-20] MEDS: NICOTINE 21 MG/24 HOURS TOPICAL PATCH TD SCH (09:01)
[2017-01-20] MEDS: guaiFENesin 600 MG TABLET.ER (FP) PO SCH ×2 (09:02→21:17)
[2017-01-20] MEDS: DOCUSATE SODIUM 100 MG CAPSULE (FP) PO SCH ×2 (09:02→21:14)
[2017-01-20] MEDS: ASPIRIN COATED 81 MG TABLET.EC PO SCH (09:02)
[2017-01-20] MEDS: LACTOBACILLUS ACIDOPHILUS 1 EACH TAB (FP) PO SCH (09:02)
[2017-01-20] MEDS: CLOPIDOGREL BISULFATE 75 MG TABLET (FP) PO SCH (09:02)
[2017-01-20] MEDS: SENNOSIDES 8.6MG TABLET (FP) PO SCH ×2 (09:02→21:18)
[2017-01-20 10:15] LABS: METAMYELOCYTE 4 % (0-2); PLATELET ESTIMATE INCREASED (NORMAL)
--- NOTE | 2017-01-20 10:32 | CONSULT ---
Admitting History and Physical - Primary Care Physician PCP: Marquez Huang - Admission History of Present Illness: Admitted for acute on chronic renal failure, cellulitis of foot pt s/p recent hospital admission and left AMA medical hx includes: CVA, peripheral neuropathy, CHF, HTN, HLD, COPD, CKD, DM, colitis, AR, stent DNR/DNI rescinded. pt with SOB - transferred to ICU -refused BIPAP- intubated x 24 hours. Extubated yesterday. sepsis due to diabetic foot ulcer bacteremia, leukocytosis, fevers, ARF, cellullitis of foot, CAD, chronic pain, DM, HTN, HLD. Asked to evaluate swallowing following extubation.Pt had breakfast this am, and reportedly tolerated it. History Source: Transfer Record Limitations to Obtaining History: Clinical Condition - Past Medical History [employer]CTION [employer]: Yes: CVA, Peripheral Neuropathy Cardiovascular: Yes: CHF, HTN, Hyperlipdemia. No: AFIB Pulmonary: Yes: COPD Gastrointestinal: Yes: Other (Colitis) Renal/: Yes: Renal Inusuff, Other (hyperkalemia) Psych: Yes: Addictions Musculoskeletal: Yes: Other (Lumbar radiculopathy) Endocrine: Yes: Diabetes Mellitus - Past Surgical History Past Surgical History: Yes: Stent - Smoking History Smoking history: Current every day smoker Have you smoked in the past 12 months: Yes Aproximately how many cigarettes per day: 30 If you are a former smoker, when did you quit?: DOWN FROM 5 PACKS DAILY TO 2.5 PACKS DAILY - Alcohol/Substance Use Hx Alcohol Use: No History of Substance Use: reports: None - Social History ADL: Independent History of Recent Travel: No History - Admission Reason For Visit: ACUTE ON CHRONIC RENAL FAIL/CELLULITIS OF FOOT/ - Diagnostics X-ray: Report Reviewed - General Mental Status: Awake and Alert, Able to Follow Commands Attention: Intact Ability to Follow Directions: Good Head/Neck Control: WFL - Hearing Hearing: Functional Hearing: Normal Hearing Aide: No With Patient: No Speech Evaluation - Communication Primary Language: TELUGU Communication: Yes: Within Normal Limits Oral Expression Ability: Yes: No Impairment - Speech Production Able to Make Needs Known: Yes: WNL Intelligibility: Yes: WNL - Speech Characteristics Voice Loudness: Normal Voice Pitch: Yes: Normal Voice Phonatory-based Quality: Yes: Normal Speech Pattern: Normal Speech Clarity: < 100% Nasal Resonance: Normal Articulation: Yes: Precise Rate of Speech: Intact - Language/Auditory Comprehension Follows: Yes: 1 Stage Simple Commands - Language/Verbal Expression Able to Respond to Simple Queries: Yes: WNL Able to Communicate Wants and Needs: Yes: WNL Functional Communication Status: Yes: WNL - Swallow Evaluation/Bedside Assessment Current Nutritional Intake: Regular, Thin Liquids Oral Secretions: Yes: WFL (Coughed up thick red tinged phlegm after drinking water during first trial. Second trial, no responsive cough.) Dentition: Yes: Edentulous (Says he has dentures. He did not use them for breakfast.) Facial Symmetry at Rest: Symmetrical Facial Symmetry on Retraction: Symmetrical Facial Movement: Controlled Pucker Lips: Normal Smile: Normal Lingual Movement: Normal Lingual Speed of Movement: Normal Lingual Movement Strgth Against Opposition: Normal Lingual Movement Characteristics: Normal Velopharyngeal Movement: Normal Laryngeal Movement: Labored,delay initiation Rate of Intake: WFL Labial Seal: WFL Oral Prep Time: WFL A-P Transit: WFL Timing of Swallow: Delayed Coughing/Throat Clear: Yes (Coughed up thick red tinged phlegm after drinking water during first trial.) Recommendations - Speech Evaluation, Impression/Plan Impression: Coughed up thick red tinged phlegm after drinking water during first trial. Second trial, no responsive cough. Can not r/o silent aspiration at bedside. Good vocal quality. Mildly delayed swallow onset. - Dysphagia Impressions/Plan Dysphagia Impressions: Risk of Aspiration *Silent aspiration: cannot be R/O at bedside Recommendations: Other (Dentures in place for all meals. Monitor for responsive cough,throat clearing, congestion, increasing SOB. If noted, MBS to r/o silent aspiration.)
--- NOTE | 2017-01-20 10:49 | PN ---
Progress Note (short form) - Note Progress Note: Chief Complaint: acute hypoxic resp failure History of Present Illness: S: off pressors, extubated, no overnight events, pt feeling better. No sob, cp , palps, dizziness. +cigs Vital Signs Temp 98.4 F 01/20/17 06:00 Pulse 59 L 01/20/17 08:00 Resp 21 01/20/17 08:45 BP 135/68 01/20/17 08:00 Pulse Ox 91 L 01/20/17 08:45 Intake & Output 01/19/17 01/19/17 01/20/17 11:59 23:59 11:59 Intake Total 1431.6 958.5 Output Total 500 500 800 Balance 931.6 458.5 -800 Weight 194 lb 10.691 oz 196 lb 12.8 oz Intake: IV 1331.6 358.5 Diprivan - 100 ml @ 5 MCG 201.6 4 /KG/MIN 2.661 mls/hr IVPB TITR RADHA Rx#:[id number] Levophed - 8,000 Mcg In 200 18.5 D5w - 492 ml @ 5 MCG/MIN 18.75 mls/hr IV TITR RADHA Rx#:[id number] Normal Saline - 250 ml @ 750 500 mls/hr IV ASDIR STA Rx#:[id number] Normal Saline - 1,000 ml 336 @ 42 mls/hr IV ASDIR RADHA Rx#:[id number] SL 180 IVPB 100 200 Oral 400 Output: Urine 500 500 800 Dupree 500 500 800 Other: Voiding Method Indwelling Catheter Indwelling Catheter Indwelling Catheter Weight Measurement Method Built in [facility] Built in [facility] Constitutional: Yes: No Distress, Obese Eyes: No: Sclera Icterus Cardiovascular: Yes: Regular Rate and Rhythm (decr intensity), S1, S2, Other ( PMI non diplaced). No: JVD (tds (habitus)), Gallop, Murmur Respiratory: Yes: cta bl nl eff. No: Accessory Muscle Use Gastrointestinal: Yes: Normal Bowel Sounds, Soft. No: Tenderness Musculoskeletal: Yes: Other (No kyphosis) Extremities: cool Edema: No le e/c/c Integumentary: No: Jaundice diaphoresis Neurological: Yes: aaox3 Psychiatric: No: Agitated no carotid bruits +dp/pt Current Medications Generic Name Dose Route Start Last Admin Trade Name Freq PRN Reason Stop Dose Admin Acetaminophen 650 mg 01/15/17 19:34 01/17/17 12:04 Tylenol - PO 650 mg Q6H PRN Administration FEVER OR PAIN Albuterol Sulfate 1 amp 01/18/17 11:23 Ventolin 0.5% - NEB Q4H PRN SHORT OF BREATH/WHEEZING Albuterol/Ipratropium 1 amp 01/18/17 11:30 01/20/17 06:07 Duoneb - NEB 1 amp Q6H RADHA Administration Aspirin 81 mg 01/16/17 10:00 01/20/17 09:02 Ecotrin - PO 81 mg DAILY RADHA Administration Atorvastatin Calcium 40 mg 01/15/17 22:00 01/19/17 21:38 Lipitor - PO 40 mg HS RADHA Administration Clopidogrel Bisulfate 75 mg 01/16/17 10:00 01/20/17 09:02 Plavix - PO 75 mg DAILY RADHA Administration Docusate Sodium 100 mg 01/15/17 22:00 01/20/17 09:02 Colace - PO 100 mg BID RADHA Administration Guaifenesin 1,200 mg 01/17/17 12:30 01/20/17 09:02 Mucinex - PO 1,200 mg BID RADHA Administration Heparin Sodium (Porcine) 5,000 unit 01/15/17 22:00 01/20/17 06:19 Heparin - SQ 5,000 unit TID RADHA Administration Vancomycin HCl 1,500 mg/ 500 mls @ 250 mls/hr 01/16/17 15:00 01/18/17 16:53 Dextrose IVPB 250 mls/hr Q48H RADHA Administration Protocol Sodium Chloride 1,000 mls @ 42 mls/hr 01/19/17 09:30 01/19/17 09:32 Normal Saline - IV 42 mls/hr ASDIR RADHA Administration Insulin Aspart 1 vial 01/15/17 22:00 01/20/17 06:39 Novolog Vial Sliding Scale - SQ 4 units ACHS RADHA Administration Protocol Insulin Detemir 30 units 01/17/17 22:59 01/19/17 22:44 Levemir Vial SQ 30 units HS RADHA Administration Insulin Detemir 45 units 01/19/17 22:16 01/20/17 06:32 Levemir Vial SQ 45 units AM RADHA Administration Lactobacillus Acidophilus 1 tab 01/16/17 10:00 01/20/17 09:02 Bacid - PO 1 tab DAILY RADHA Administration Methylprednisolone Sodium Succinate 60 mg 01/18/17 11:30 01/20/17 04:19 Solu-Medrol - IVPB 60 mg Q8H RADHA Administration Morphine Sulfate 60 mg 01/15/17 11:00 01/20/17 06:18 Ms Contin - PO 60 mg TID RADHA Administration Nicotine 21 mg 01/16/17 10:00 01/20/17 09:01 Nicoderm Patch - TD 21 mg DAILY RADHA Administration Oxycodone HCl 30 mg 01/15/17 19:34 01/20/17 00:16 Roxicodone - PO 30 mg Q4H PRN Administration PAIN Pantoprazole Sodium 40 mg 01/19/17 10:00 01/20/17 09:00 Protonix 40mg Ivpb (Pre-Docked) IVPB 40 mg BID RADHA Administration Piperacillin Sod/Tazobactam Sod 3.375 gm 01/19/17 10:45 01/20/17 08:59 Zosyn 3.375gm Ivpb (Pre-Docked) IVPB 3.375 gm Q8H-IV RADHA Administration Protocol Polyethylene Glycol 17 gm 01/15/17 19:34 Miralax (For Daily Use) - PO BID PRN CONSTIPATION Senna 1 tab 01/16/17 14:00 01/20/17 09:02 Senna - PO 1 tab BID RADHA Administration Laboratory Last Values WBC 29.4 K/mm3 (4.0-10.0) H 01/20/17 05:00 RBC 3.83 M/mm3 (4.00-5.60) L 01/20/17 05:00 Hgb 10.9 GM/dL (11.7-16.9) L 01/20/17 05:00 Hct 33.5 % (35.4-49) L 01/20/17 05:00 MCV 87.6 fl (80-96) 01/20/17 05:00 MCHC 32.6 g/dl (32.0-35.9) 01/20/17 05:00 RDW 15.0 % (11.9-15.9) 01/20/17 05:00 Plt Count 442 K/MM3 (134-434) H 01/20/17 05:00 MPV 9.4 fl (7.5-11.1) 01/20/17 05:00 Neutrophils % 77.0 % (42.8-82.8) 01/20/17 05:00 Lymphocytes % 7.0 % (8-40) L 01/20/17 05:00 Monocytes % 3.0 % (3.8-10.2) L 01/20/17 05:00 Eosinophils % 0.0 % (0-4.5) D 01/19/17 05:35 Basophils % 0.1 % (0-2.0) 01/19/17 05:35 Band Neutrophils 3.0 % (0-10) D 01/20/17 05:00 Metamyelocytes 4 % (0-2) H D 01/20/17 05:00 Myelocytes 4 % (0-2) H D 01/20/17 05:00 Promyelocytes 2 (0-1) H 01/20/17 05:00 Differential Comment Manual diff done 01/18/17 05:05 Platelet Estimate Increased (NORMAL) 01/20/17 05:00 Platelet Comment No clumping noted 01/20/17 05:00 Platelet Comment No clotting detected 01/14/17 05:00 Morphology Comment Slide scanned 01/18/17 05:05 ESR 100 mm/hr (0-20) H 01/13/17 15:00 Puncture Site Right radial 01/19/17 07:14 ABG pH 7.40 (7.35-7.45) 01/19/17 07:14 ABG pCO2 at Pt Temp 43.0 mmHg (35-45) 01/19/17 07:14 ABG pO2 at Pt Temp 74.7 mmHg (80-100) L 01/19/17 07:14 ABG HCO3 26.3 meq/L (22-26) H 01/19/17 07:14 ABG O2 Sat (Measured) 94.2 % (90-98.9) 01/19/17 07:14 ABG O2 Content 15.0 % vol (15-22) 01/19/17 07:14 ABG Base Excess 1.8 meq/l (-2-2) 01/19/17 07:14 Alfredo Test Positive 01/19/17 07:14 O2 Delivery Device Mechanical vent 01/19/17 07:14 Oxygen Flow Rate 70% 01/19/17 07:14 Vent Mode A/c 01/19/17 07:14 Vent Rate 12 01/19/17 07:14 Mechanical Rate Yes 01/19/17 07:14 PEEP 5.0 cmH2O 01/19/17 07:14 Pressure Support Vent 400ml 01/19/17 07:14 Sodium 141 mmol/L (136-145) 01/20/17 05:00 Potassium 3.9 mmol/L (3.5-5.1) 01/20/17 05:00 Chloride 100 mmol/L (98-107) 01/20/17 05:00 Carbon Dioxide 29 mmol/L (21-32) 01/20/17 05:00 Anion Gap 12 (8-16) 01/20/17 05:00 BUN 105 mg/dL (7-18) H* D 01/20/17 05:00 Creatinine 1.8 mg/dL (0.7-1.3) H 01/20/17 05:00 Creat Clearance w eGFR 37.71 (>60) 01/20/17 05:00 POC Glucometer 221.17027 UNITS (()) 01/20/17 05:11 Random Glucose 179 mg/dL (74-106) H D 01/20/17 05:00 Lactic Acid 1.128 mmol/L (0.4-2.0) 01/19/17 05:35 Calcium 7.9 mg/dL (8.5-10.1) L 01/20/17 05:00 Phosphorus 4.9 mg/dL (2.5-4.9) 01/19/17 05:35 Magnesium 2.3 mg/dL (1.8-2.4) 01/20/17 05:00 Total Bilirubin 0.6 mg/dL (0.2-1.0) 01/20/17 05:00 AST 31 U/L (15-37) D 01/20/17 05:00 ALT 31 U/L (12-78) D 01/20/17 05:00 Alkaline Phosphatase 108 U/L (45-117) 01/20/17 05:00 Ammonia 10.15 umol/L (11-32) L 01/12/17 20:50 Creatine Kinase 15 IU/L (39-308) L 01/19/17 05:35 Troponin I 0.14 ng/ml (0.00-0.05) H D 01/19/17 05:35 C-Reactive Protein 45.2 MG/DL (0.00-0.3) H D 01/13/17 15:00 Total Protein 4.9 g/dl (6.4-8.2) L 01/20/17 05:00 Albumin 1.8 g/dl (3.4-5.0) L 01/20/17 05:00 Urine Color Ltyellow 01/12/17 21:55 Urine Appearance Clear 01/12/17 21:55 Urine pH 5.0 (5.0-8.0) 01/12/17 21:55 Ur Specific [place] 1.013 (1.001-1.035) 01/12/17 21:55 Urine Protein 2+ (NEGATIVE) H 01/12/17 21:55 Urine Glucose (UA) Negative (NEGATIVE) 01/12/17 21:55 Urine Ketones Negative (NEGATIVE) 01/12/17 21:55 Urine Blood 2+ (NEGATIVE) H 01/12/17 21:55 Urine Nitrite Negative (NEGATIVE) 01/12/17 21:55 Urine Bilirubin Negative (NEGATIVE) 01/12/17 21:55 Urine Urobilinogen Negative E.U./dl (0.2-1.0) 01/12/17 21:55 Ur Leukocyte Esterase Negative (NEGATIVE) 01/12/17 21:55 Urine RBC 7 /hpf (0-3) 01/12/17 21:55 Urine WBC 3 /hpf (3-5) 01/12/17 21:55 Ur Epithelial Cells Rare /hpf (FEW) 01/12/17 21:55 Urine Bacteria Rare /hpf (NONE SEEN) 01/12/17 21:55 Ur Random Sodium 33 MMOL/L 01/14/17 20:45 Ur Random Potassium 38.3 MMOL/L 01/14/17 20:45 Ur Random Chloride 45 MMOL/L 01/14/17 20:45 Urine Creatinine 37.9 mg/dL 01/14/17 20:45 Random Vancomycin 9.663 ug/ml 01/18/17 05:05 cxr: no sig chf Echo 05/13: mod global HK (TDS for rwma); RV tds; trace AI; no RVSP Echo 12/2016: TDS; LVSF is "at least mildly reduced: RWM assessment tds; nl RV; nl LA; mild MR/TR; no veg seen EKG 01/18: SR with frequent pvc. LAD, prolonged qt, LVH with repolarization changes. non-specific t wave abnormalities. prior inferior infarct. STAT repeat echo 01/17/17--images reviewed by Dr. Mckeon: no vegetation seen; redundant, highly mobile anterior chorda to anterior MV leaflet--cannot definitively exclude vegetation attached to chord though not highly suspicious. no AV or TV vege seen. no MR/TR/AI. EF mod-severely decr'd, ? global (cannot accurately assess for RWMAs)--suspect EF is 35-40%. RV normal size, fxn not well visualized. tele: SR with pvc's a/p: acute syst chf, isch CMP: - CXR c/w chf (vascular redistribution, interstitial edema) - no valve dysfunction on rpt echo - etiol of chf is likely mod-severe LV systolic dysfunction with IV hydration contributing; ? sepsis causing some transient myocardial dysfunction as well - s/p lasix 60 ivp x 1 01/17. - 01/18: blood gas 01/17 with metabolic alkalosis and increased bicarb in addition to hypoxia. Therefore, would not diurese further as it may worsen alkalosis. May have underlying congestion contributing to respiratory failure, but can manage with PEEP for now. Additionally, considerable drop in pressure in response to sedation consistent with intravascular depletion. MAP 57, high likelihood that patient has pulmonary hypertension, would recommend starting dopamine to keep MAP's above 65. If central line is placed would benefit from CVP monitoring. -01/19: BP stabilized with IVF, minimal pressor support (now off). extubated. CVP remains low. Con't gentle IVF as needed. -01/20: no sig vol overload. can cont gentle ivfs. -holding metoprolol until bp's consistently stable off pressors -daily bmp, weights, I/O S Aureus Bacteremia/Sepsis: -Source likely non-healing ulcer -Abx as per ICU team -repeat echo with no valve dysfunction; cannot definitively exclude veg on anterior MV chorda but could all be redundant chord--either way, clearly this is not etiologic in his acute chf given no MR present. -repeat BCx's neg to date. LETICIA on hold for now. CAD: -follows with dr roddy suarez cardio -s/p PCI (LIBBY) to 100% occl RPDA in 2004 ([place]) with patent prior RCA stents at that time, EF 50% then; -s/p anterior STEMI 2011 with S[place] LIBBY x 2 to mid LAD then ([place]); residual dz then included 80% prox D1 (large vessel), 95% mD1; 70%mRCA (pre and post prior stents); 40% RPDA; 60% pCFX; 40% mCFX; 70% dCFX; EF then 37% with AK of apex/AL lindsey and AK of IW; -continue lipitor, plavix, ASA -repeat ECG without signs of acute ischemia, serial enzymes with intermediate elevation and flat trend not consistent with ACS. VTach: -runs of NSVT at times here -EF possibly mild decreased on echo -01/18 EKG with prolongation of qt interval in addition to frequent pvc's. --> K/ Mag > 2/4 per usual, cont bb as doing, monitor tele. Will d/c zofran. -01/19-: tele unremarkable arf on ckd: -improving -IVF as needed, CVP monitoring. tx of sepsis per crit care HTN: -per home med list, pt on toprol 50 and hydral 10 bid at home -now off pressors, monitor bp off meds for now Bradycardia - ? mobitz I vs II while sleeping on tele here previously - monitor tele--stable thus far - holding metoprolol while hypotensive. h/o CVA: -dx'd lacunar infarct 02/10 clinically then (slurred speech) -? acute CVA/TIA 11/13, seen by neuro then--ASA added to prior plavix, remains on DAPT
[2017-01-20] MEDS: SODIUM CHLORIDE 1,000 ML IV SCH (11:05)
--- NOTE | 2017-01-20 12:01 | PN ---
Physical Exam: SUBJECTIVE: Patient seen and examined at bedside in ICU. He was extubated yesterday and tolerating ventimask 40% well overnight. Productive cough with brownish sputum. OBJECTIVE: On venti mask 40% Vital Signs Period Temp Pulse Resp BP Sys/Chandra Pulse Ox Last 24 Hr 97.7 F-98.4 F 55-67 11-21 118-136/50-70 91-92 GENERAL: Awake, alert, and fully oriented, Saturating well on Venti-mask 40% HEAD: AT, NC EYES: Pupils equal, round and reactive to light, sclera anicteric, conjunctiva clear EARS, NOSE, THROAT: On venti-mask LUNGS: biphasic rhonchi b/l, improving HEART: RRR, S1 and S2, no murmur, rub ABDOMEN: +bs, soft, non-tender, no rebound, guarding EXTREMITIES: No peripheral edema. CBCD WBC 29.4 K/mm3 (4.0-10.0) H 01/20/17 05:00 RBC 3.83 M/mm3 (4.00-5.60) L 01/20/17 05:00 Hgb 10.9 GM/dL (11.7-16.9) L 01/20/17 05:00 Hct 33.5 % (35.4-49) L 01/20/17 05:00 MCV 87.6 fl (80-96) 01/20/17 05:00 MCHC 32.6 g/dl (32.0-35.9) 01/20/17 05:00 RDW 15.0 % (11.9-15.9) 01/20/17 05:00 Plt Count 442 K/MM3 (134-434) H 01/20/17 05:00 MPV 9.4 fl (7.5-11.1) 01/20/17 05:00 CMP Sodium 141 mmol/L (136-145) 01/20/17 05:00 Potassium 3.9 mmol/L (3.5-5.1) 01/20/17 05:00 Chloride 100 mmol/L (98-107) 01/20/17 05:00 Carbon Dioxide 29 mmol/L (21-32) 01/20/17 05:00 Anion Gap 12 (8-16) 01/20/17 05:00 BUN 105 mg/dL (7-18) H* D 01/20/17 05:00 Creatinine 1.8 mg/dL (0.7-1.3) H 01/20/17 05:00 Creat Clearance w eGFR 37.71 (>60) 01/20/17 05:00 Calcium 7.9 mg/dL (8.5-10.1) L 01/20/17 05:00 Total Bilirubin 0.6 mg/dL (0.2-1.0) 01/20/17 05:00 AST 31 U/L (15-37) D 01/20/17 05:00 ALT 31 U/L (12-78) D 01/20/17 05:00 Alkaline Phosphatase 108 U/L (45-117) 01/20/17 05:00 Total Protein 4.9 g/dl (6.4-8.2) L 01/20/17 05:00 Albumin 1.8 g/dl (3.4-5.0) L 01/20/17 05:00 Intake & Output 01/17/17 01/18/17 01/19/17 01/20/17 23:59 23:59 23:59 23:59 Intake Total 9630 443 5073.1 Output Total 1950 1200 1000 800 Balance -910 -500 1390.1 -800 Weight 86.2 kg 88.7 kg 88.3 kg 89.267 kg Active Medications Generic Name Dose Route Start Last Admin Trade Name Freq PRN Reason Stop Dose Admin Acetaminophen 650 mg 01/15/17 19:34 01/17/17 12:04 Tylenol - PO 650 mg Q6H PRN Administration FEVER OR PAIN Albuterol Sulfate 1 amp 01/18/17 11:23 Ventolin 0.5% - NEB Q4H PRN SHORT OF BREATH/WHEEZING Albuterol/Ipratropium 1 amp 01/18/17 11:30 01/20/17 11:42 Duoneb - NEB 1 amp Q6H RADHA Administration Aspirin 81 mg 01/16/17 10:00 01/20/17 09:02 Ecotrin - PO 81 mg DAILY RADHA Administration Atorvastatin Calcium 40 mg 01/15/17 22:00 01/19/17 21:38 Lipitor - PO 40 mg HS RADHA Administration Clopidogrel Bisulfate 75 mg 01/16/17 10:00 01/20/17 09:02 Plavix - PO 75 mg DAILY RADHA Administration Docusate Sodium 100 mg 01/15/17 22:00 01/20/17 09:02 Colace - PO 100 mg BID RADHA Administration Guaifenesin 1,200 mg 01/17/17 12:30 01/20/17 09:02 Mucinex - PO 1,200 mg BID RADHA Administration Heparin Sodium (Porcine) 5,000 unit 01/15/17 22:00 01/20/17 06:19 Heparin - SQ 5,000 unit TID RADHA Administration Vancomycin HCl 1,500 mg/ 500 mls @ 250 mls/hr 01/16/17 15:00 01/18/17 16:53 Dextrose IVPB 250 mls/hr Q48H RADHA Administration Protocol Sodium Chloride 1,000 mls @ 42 mls/hr 01/19/17 09:30 01/20/17 11:05 Normal Saline - IV 42 mls/hr ASDIR RADHA Administration Insulin Aspart 1 vial 01/15/17 22:00 01/20/17 06:39 Novolog Vial Sliding Scale - SQ 4 units ACHS RADHA Administration Protocol Insulin Detemir 30 units 01/17/17 22:59 01/19/17 22:44 Levemir Vial SQ 30 units HS RADHA Administration Insulin Detemir 45 units 01/19/17 22:16 01/20/17 06:32 Levemir Vial SQ 45 units AM RADHA Administration Lactobacillus Acidophilus 1 tab 01/16/17 10:00 01/20/17 09:02 Bacid - PO 1 tab DAILY RADHA Administration Methylprednisolone Sodium Succinate 60 mg 01/18/17 11:30 01/20/17 11:06 Solu-Medrol - IVPB 60 mg Q8H RADHA Administration Morphine Sulfate 60 mg 01/15/17 11:00 01/20/17 06:18 Ms Contin - PO 60 mg TID RADHA Administration Nicotine 21 mg 01/16/17 10:00 01/20/17 09:01 Nicoderm Patch - TD 21 mg DAILY RADHA Administration Oxycodone HCl 30 mg 01/15/17 19:34 01/20/17 00:16 Roxicodone - PO 30 mg Q4H PRN Administration PAIN Pantoprazole Sodium 40 mg 01/19/17 10:00 01/20/17 09:00 Protonix 40mg Ivpb (Pre-Docked) IVPB 40 mg BID RADHA Administration Piperacillin Sod/Tazobactam Sod 3.375 gm 01/19/17 10:45 01/20/17 08:59 Zosyn 3.375gm Ivpb (Pre-Docked) IVPB 3.375 gm Q8H-IV RADHA Administration Protocol Polyethylene Glycol 17 gm 01/15/17 19:34 Miralax (For Daily Use) - PO BID PRN CONSTIPATION Senna 1 tab 01/16/17 14:00 01/20/17 09:02 Senna - PO 1 tab BID RADHA Administration Imaging CT lower extremities on 01/16: no CT evidence of osteo, retained stool, small inguinal hernia CT spine on 01/16: degenerative changes CXR on 01/20: b/l pleural effusion CXR on 01/19: right infiltrate with possible right hilar adenopathy CXR on 01/18: Segmental right upper lobe infiltrate is noted in the right mid lung zone, worsened in comparison to prior examination. Clinically correlate for segmental right upper lobe pneumonia, atelectasis. 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 Pulm: Acute respiratory distress - Extubated on venti-mask 40% * BiPAP PRN - Maintain O2 Sat. > 88% - Cont. symbicort, tudorza - Titrate Solumedrol 60mg Q8H to Q12H - Nebulizers PRN - Daily CXR ID: Sepsis 2/2 diabetic foot ulcer and cellulitis - Elevated WBC on steroid, afrebile - MRSA in blood culture - L 2nd toe amputation when stable - On Vanco day 5 and zosyn day 3 Renal: CKD stage 4 - Cr improving with elevated BUN likely 2/2 steroid and chronic bleeding - Encourage free water intake - Monitor I/O Endo: DM2 with neuropathy - Cont. levemir and sliding scale - Cont. morphine and oxycodone - BGM Cardiac: CAD s/p stent; HTN - Cont. Asa, plavix, and lipitor - Hold hydralazine and lopressor due to low BP - Avoid QT prolongation medications - LETICIA when stable FEN - D/C fluid, encourage PO intakes - Normal lytes, cont. to monitor - Diabetic diet Prophylaxis - DVT: heparin SQ - GI: on PPI Disposition - May transfer to [facility]-surg Code status - Full code Visit type - Emergency Visit Emergency Visit: No - New Patient This patient is new to me today: No - Critical Care Critical Care patient: Yes Total Critical Care Time (in minutes): 35 Critical Care Statement: The care of this patient involved high complexity decision making to prevent further life threatening deterioration of the patient 's condition and/or to evalute & treat vital organ system(s) failure or risk of failure.
[2017-01-20] MEDS ORDERED: LORazepam 0.5 MG TABLET PO PRN ×2 (12:58→14:22)
[2017-01-20] MEDS ORDERED: PT OWN MED DRAWER 7, Y5N ONE ×2 (13:07→14:00)
[2017-01-20] MEDS ORDERED: ALBUTEROL SO4 0.5 % INH SOLN 2.5 MG/0.5 ML VIAL.NEB. NEB PRN (14:22)
[2017-01-20] MEDS ORDERED: POLYETHYLENE GLYCOL 3350 119 GM BTL PO PRN (14:22)
--- NOTE | 2017-01-20 15:05 | PN ---
Progress Note, Physician History of Present Illness: patient doing well was extubated says he feels well back pain - Current Medication List Current Medications: Active Medications Acetaminophen (Tylenol -) 650 mg PO Q6H PRN PRN Reason: FEVER OR PAIN Albuterol Sulfate (Ventolin 0.5% -) 1 amp NEB Q4H PRN PRN Reason: SHORT OF BREATH/WHEEZING Albuterol/Ipratropium (Duoneb -) 1 amp NEB QIDR RADHA Aspirin (Ecotrin -) 81 mg PO DAILY [facility] Atorvastatin Calcium (Lipitor -) 40 mg PO HS RADHA Clopidogrel Bisulfate (Plavix -) 75 mg PO DAILY [facility] Docusate Sodium (Colace -) 100 mg PO BID RADHA Guaifenesin (Mucinex -) 1,200 mg PO BID [facility] Heparin Sodium (Porcine) (Heparin -) 5,000 unit SQ TID [facility] Vancomycin HCl 1,500 mg/ (Dextrose) 500 mls @ 250 mls/hr IVPB Q48H RADHA PRN Reason: Protocol Insulin Aspart (Novolog Vial Sliding Scale -) 1 vial SQ ACHS [facility] PRN Reason: Protocol Insulin Detemir (Levemir Vial) 30 units SQ HS [facility] Insulin Detemir (Levemir Vial) 45 units SQ AM [facility] Lactobacillus Acidophilus (Bacid -) 1 tab PO DAILY [facility] Lorazepam (Ativan -) 0.5 mg PO TID PRN PRN Reason: ANXIETY Stop: 01/21/17 12:57 Methylprednisolone Sodium Succinate (Solu-Medrol -) 60 mg IVPB Q12H [facility] Morphine Sulfate (Ms Contin -) 60 mg PO TID [facility] Nicotine (Nicoderm Patch -) 21 mg TD DAILY [facility] Pantoprazole Sodium (Protonix 40mg Ivpb (Pre-Docked)) 40 mg IVPB BID [facility] Piperacillin Sod/Tazobactam Sod (Zosyn 3.375gm Ivpb (Pre-Docked)) 3.375 gm IVPB Q8H-IV [facility]HA PRN Reason: Protocol Polyethylene Glycol (Miralax (For Daily Use) -) 17 gm PO BID PRN PRN Reason: CONSTIPATION Senna (Senna -) 1 tab PO BID RADHA - Objective Vital Signs: Vital Signs Temperature 97.9 F 01/20/17 14:00 Pulse Rate 65 01/20/17 14:00 Respiratory Rate 16 01/20/17 14:00 Blood Pressure 125/66 01/20/17 14:00 O2 Sat by Pulse Oximetry (%) 91 L 01/20/17 08:45 Constitutional: Yes: Calm, Mild Distress Cardiovascular: Yes: Regular Rate and Rhythm Respiratory: Yes: Regular, Poor Air Entry, Rhonchi Gastrointestinal: Yes: Normal Bowel Sounds, Soft Extremities: Yes: Other (non healing ulcer) Wound/Incision: Yes: Open to air, Other Neurological: Yes: Alert, Oriented Psychiatric: Yes: Alert, Oriented Labs: CBC, BMP 01/20/17 05:00 01/20/17 05:00 Assessment/Plan This patient treated couple of days back with cefazolin and flagyl now comes with fulminant infection and in sepsis with gram positive bacteremia i have a strong suspicion that now it might be a resistant organism I dont know how many days he was treated from last infection and how it was done. He has got vanco and zosyn he has very bad kidneys,but he also has severe infection and needs to be covered agree with the patient getting echo also patient leg does not look good and i am worried about deep seated infection Imaging - Results Chest X-ray: Report Reviewed, Image Reviewed Problem List - Problems (1) Sepsis Code(s): A41.9 - SEPSIS, UNSPECIFIED ORGANISM (2) Diabetic foot ulcer Code(s): E11.621 - TYPE 2 DIABETES MELLITUS WITH FOOT ULCER L97.509 - NON-PRESSURE CHRONIC ULCER OTH PRT UNSP FOOT W UNSP SEVERITY (3) Cellulitis of foot Code(s): L03.119 - CELLULITIS OF UNSPECIFIED PART OF LIMB (4) Renal failure (ARF), acute on chronic Code(s): N17.9 - ACUTE KIDNEY FAILURE, UNSPECIFIED N18.9 - CHRONIC KIDNEY DISEASE, UNSPECIFIED (5) CAD (coronary artery disease) Code(s): I25.10 - ATHSCL HEART DISEASE OF [place] CORONARY ARTERY W/O ANG PCTRS Qualifiers: Coronary Disease-Associated Artery/Lesion type: unspecified vessel or lesion type [place] vs. transplanted heart: [place] heart Associated angina: with stable angina Qualified Code(s): I25.119 - Atherosclerotic heart disease of [place] coronary artery with unspecified angina pectoris (6) COPD (chronic obstructive pulmonary disease) Code(s): J44.9 - CHRONIC OBSTRUCTIVE PULMONARY DISEASE, UNSPECIFIED Qualifiers : COPD type: unspecified COPD Qualified Code(s): J44.9 - Chronic obstructive pulmonary disease, unspecified (7) Chronic pain Code(s): G89.29 - OTHER CHRONIC PAIN (8) Diabetes mellitus Code(s): E11.9 - TYPE 2 DIABETES MELLITUS WITHOUT COMPLICATIONS Qualifiers: Diabetes mellitus type: type 1 Diabetes mellitus complication status: with hyperglycemia Qualified Code(s): E10.65 - Type 1 diabetes mellitus with hyperglycemia (9) Hyperlipidemia Code(s): E78.5 - HYPERLIPIDEMIA, UNSPECIFIED (10) Hypertension Code(s): I10 - ESSENTIAL (PRIMARY) HYPERTENSION (11) Tobacco abuse Code(s): Z72.0 - TOBACCO USE mrsa bacteremia back pain resp failure plan continue current mgmt continue abx xray looked at resp support rest as per icu cc 40 min
--- NOTE | 2017-01-20 15:08 | PN ---
Progress Note, Physician History of Present Illness: looks much better breathing much better - Current Medication List Current Medications: Active Medications Acetaminophen (Tylenol -) 650 mg PO Q6H PRN PRN Reason: FEVER OR PAIN Albuterol Sulfate (Ventolin 0.5% -) 1 amp NEB Q4H PRN PRN Reason: SHORT OF BREATH/WHEEZING Albuterol/Ipratropium (Duoneb -) 1 amp NEB QIDR [facility] Aspirin (Ecotrin -) 81 mg PO DAILY [facility] Atorvastatin Calcium (Lipitor -) 40 mg PO HS [facility] Clopidogrel Bisulfate (Plavix -) 75 mg PO DAILY [facility] Docusate Sodium (Colace -) 100 mg PO BID [facility] Guaifenesin (Mucinex -) 1,200 mg PO BID [facility] Heparin Sodium (Porcine) (Heparin -) 5,000 unit SQ TID [facility] Vancomycin HCl 1,500 mg/ (Dextrose) 500 mls @ 250 mls/hr IVPB Q48H [facility] PRN Reason: Protocol Insulin Aspart (Novolog Vial Sliding Scale -) 1 vial SQ ACHS [facility] PRN Reason: Protocol Insulin Detemir (Levemir Vial) 30 units SQ HS [facility] Insulin Detemir (Levemir Vial) 45 units SQ AM [facility] Lactobacillus Acidophilus (Bacid -) 1 tab PO DAILY [facility] Lorazepam (Ativan -) 0.5 mg PO TID PRN PRN Reason: ANXIETY Stop: 01/21/17 12:57 Methylprednisolone Sodium Succinate (Solu-Medrol -) 60 mg IVPB Q12H [facility] Morphine Sulfate (Ms Contin -) 60 mg PO TID [facility] Nicotine (Nicoderm Patch -) 21 mg TD DAILY [facility] Pantoprazole Sodium (Protonix 40mg Ivpb (Pre-Docked)) 40 mg IVPB BID [facility] Piperacillin Sod/Tazobactam Sod (Zosyn 3.375gm Ivpb (Pre-Docked)) 3.375 gm IVPB Q8H-IV [facility] PRN Reason: Protocol Polyethylene Glycol (Miralax (For Daily Use) -) 17 gm PO BID PRN PRN Reason: CONSTIPATION Senna (Senna -) 1 tab PO BID RADHA - Objective Vital Signs: Vital Signs Temperature 97.9 F 01/20/17 14:00 Pulse Rate 65 01/20/17 14:00 Respiratory Rate 16 01/20/17 14:00 Blood Pressure 125/66 01/20/17 14:00 O2 Sat by Pulse Oximetry (%) 91 L 01/20/17 08:45 Constitutional: Yes: No Distress, Calm Cardiovascular: Yes: Regular Rate and Rhythm Respiratory: Yes: Regular, Poor Air Entry, Rhonchi Gastrointestinal: Yes: Normal Bowel Sounds, Soft Musculoskeletal: Yes: Other Extremities: Yes: Other (ulcer) Integumentary: Yes: Erythema, Other Wound/Incision: Yes: Open to air, Dressing Dry and Intact Neurological: Yes: Alert, Oriented Labs: CBC, BMP 01/20/17 05:00 01/20/17 05:00 Assessment/Plan This patient treated couple of days back with cefazolin and flagyl now comes with fulminant infection and in sepsis with gram positive bacteremia i have a strong suspicion that now it might be a resistant organism I dont know how many days he was treated from last infection and how it was done. He has got vanco and zosyn he has very bad kidneys,but he also has severe infection and needs to be covered agree with the patient getting echo also patient leg does not look good and i am worried about deep seated infection Imaging - Results Chest X-ray: Report Reviewed, Image Reviewed Problem List - Problems (1) Sepsis Code(s): A41.9 - SEPSIS, UNSPECIFIED ORGANISM (2) Diabetic foot ulcer Code(s): E11.621 - TYPE 2 DIABETES MELLITUS WITH FOOT ULCER L97.509 - NON-PRESSURE CHRONIC ULCER OTH PRT UNSP FOOT W UNSP SEVERITY (3) Cellulitis of foot Code(s): L03.119 - CELLULITIS OF UNSPECIFIED PART OF LIMB (4) Renal failure (ARF), acute on chronic Code(s): N17.9 - ACUTE KIDNEY FAILURE, UNSPECIFIED N18.9 - CHRONIC KIDNEY DISEASE, UNSPECIFIED (5) CAD (coronary artery disease) Code(s): I25.10 - ATHSCL HEART DISEASE OF [place] CORONARY ARTERY W/O ANG PCTRS Qualifiers: Coronary Disease-Associated Artery/Lesion type: unspecified vessel or lesion type [place] vs. transplanted heart: [place] heart Associated angina: with stable angina Qualified Code(s): I25.119 - Atherosclerotic heart disease of [place] coronary artery with unspecified angina pectoris (6) COPD (chronic obstructive pulmonary disease) Code(s): J44.9 - CHRONIC OBSTRUCTIVE PULMONARY DISEASE, UNSPECIFIED Qualifiers : COPD type: unspecified COPD Qualified Code(s): J44.9 - Chronic obstructive pulmonary disease, unspecified (7) Chronic pain Code(s): G89.29 - OTHER CHRONIC PAIN (8) Diabetes mellitus Code(s): E11.9 - TYPE 2 DIABETES MELLITUS WITHOUT COMPLICATIONS Qualifiers: Diabetes mellitus type: type 1 Diabetes mellitus complication status: with hyperglycemia Qualified Code(s): E10.65 - Type 1 diabetes mellitus with hyperglycemia (9) Hyperlipidemia Code(s): E78.5 - HYPERLIPIDEMIA, UNSPECIFIED (10) Hypertension Code(s): I10 - ESSENTIAL (PRIMARY) HYPERTENSION (11) Tobacco abuse Code(s): Z72.0 - TOBACCO USE mrsa bacteremia back pain resp failure plan continue current mgmt continue abx xray looked at resp support will recheck vanco trough patient will need abx for some time cc 40 min
[2017-01-20] MEDS: ACETAMINOPHEN 325 MG TABLET (FP) PO PRN (15:13)
[2017-01-20] MEDS ORDERED: VANCOMYCIN 1,500 MG in DEXTROSE 5%-WATER - 500 ML IVPB SCH (16:00)
--- NOTE | 2017-01-20 16:12 | PN ---
Teaching Attending Note Name of Resident: Omid Julian ATTENDING PHYSICIAN STATEMENT I saw and evaluated the patient. I reviewed the resident's note and discussed the case with the resident. I agree with the resident's findings and plan as documented. SUBJECTIVE: Patient seen and examined in the ICU. Awake and alert. No CP or SOB. Intake & Output 01/17/17 01/18/17 01/19/17 01/20/17 23:59 23:59 23:59 23:59 Intake Total 0718 683 0849.1 Output Total 1950 1200 1000 900 Balance -910 -500 1390.1 -900 Weight 190 lb 0.6 oz 195 lb 8.8 oz 194 lb 10.691 oz 196 lb 12.8 oz Last Vital Signs Temp Pulse Resp BP Pulse Ox 97.9 F 65 16 125/66 91 L 01/20/17 14:00 01/20/17 14:00 01/20/17 14:00 01/20/17 14:00 01/20/17 08:45 Active Medications Acetaminophen (Tylenol -) 650 mg PO Q6H PRN PRN Reason: FEVER OR PAIN Last Admin: 01/20/17 15:13 Dose: 650 mg Albuterol Sulfate (Ventolin 0.5% -) 1 amp NEB Q4H PRN PRN Reason: SHORT OF BREATH/WHEEZING Albuterol/Ipratropium (Duoneb -) 1 amp NEB QIDR [facility] Aspirin (Ecotrin -) 81 mg PO DAILY [facility] Atorvastatin Calcium (Lipitor -) 40 mg PO HS [facility] Clopidogrel Bisulfate (Plavix -) 75 mg PO DAILY [facility] Docusate Sodium (Colace -) 100 mg PO BID [facility] Guaifenesin (Mucinex -) 1,200 mg PO BID [facility] Heparin Sodium (Porcine) (Heparin -) 5,000 unit SQ TID [facility] Vancomycin HCl 1,500 mg/ (Dextrose) 500 mls @ 250 mls/hr IVPB Q48H [facility] PRN Reason: Protocol Last Admin: 01/20/17 15:13 Dose: 250 mls/hr Insulin Aspart (Novolog Vial Sliding Scale -) 1 vial SQ ACHS [facility] PRN Reason: Protocol Insulin Detemir (Levemir Vial) 30 units SQ HS [facility] Insulin Detemir (Levemir Vial) 45 units SQ AM [facility] Lactobacillus Acidophilus (Bacid -) 1 tab PO DAILY [facility] Lorazepam (Ativan -) 0.5 mg PO TID PRN PRN Reason: ANXIETY Stop: 01/21/17 12:57 Methylprednisolone Sodium Succinate (Solu-Medrol -) 60 mg IVPB Q12H [facility] Morphine Sulfate (Ms Contin -) 60 mg PO TID [facility] Nicotine (Nicoderm Patch -) 21 mg TD DAILY [facility] Pantoprazole Sodium (Protonix 40mg Ivpb (Pre-Docked)) 40 mg IVPB BID [facility] Piperacillin Sod/Tazobactam Sod (Zosyn 3.375gm Ivpb (Pre-Docked)) 3.375 gm IVPB Q8H-IV [facility] PRN Reason: Protocol Polyethylene Glycol (Miralax (For Daily Use) -) 17 gm PO BID PRN PRN Reason: CONSTIPATION Senna (Senna -) 1 tab PO BID [facility] Gen: Awake and alert Heart: RRR Lung: scattered rhonchi Abd: soft, nontender Ext: no edema, left 2nd toe with eschar Laboratory Results - last 24 hr 01/19/17 01/19/17 01/20/17 17:34 22:34 05:00 WBC 29.4 H RBC 3.83 L Hgb 10.9 L Hct 33.5 L MCV 87.6 MCHC 32.6 RDW 15.0 Plt Count 442 H MPV 9.4 Neutrophils % 77.0 Lymphocytes % 7.0 L Monocytes % 3.0 L Band Neutrophils 3.0 D Metamyelocytes 4 H D Myelocytes 4 H D Promyelocytes 2 H Platelet Estimate Increased Platelet Comment No clumping noted Sodium Potassium Chloride Carbon Dioxide Anion Gap BUN Creatinine Creat Clearance w eGFR POC Glucometer 191.81589 245.37839 Random Glucose Calcium Magnesium Total Bilirubin AST ALT Alkaline Phosphatase Total Protein Albumin 01/20/17 01/20/17 01/20/17 05:00 05:11 11:21 WBC RBC Hgb Hct MCV MCHC RDW Plt Count MPV Neutrophils % Lymphocytes % Monocytes % Band Neutrophils Metamyelocytes Myelocytes Promyelocytes Platelet Estimate Platelet Comment Sodium 141 Potassium 3.9 Chloride 100 Carbon Dioxide 29 Anion Gap 12 BUN 105 H* D Creatinine 1.8 H Creat Clearance w eGFR 37.71 POC Glucometer [phone] > 400 Random Glucose 179 H D Calcium 7.9 L Magnesium 2.3 Total Bilirubin 0.6 AST 31 D ALT 31 D Alkaline Phosphatase 108 Total Protein 4.9 L Albumin 1.8 L ASSESSMENT AND PLAN: Acute Hypoxic Respiratory Failure Likely Aspiration Pneumonia MRSA Bacteremia Cellulitis Severe Sepsis Lactic Acidosis Acute on Chronic Renal Failure Acute COPD Exacerbation CAD s/p stents PAD DM Smoker - ABX - wound care - O2 to maintain saturation - inhaled bronchodilators - ASA, plavix - DVT prophylaxis Dr Perez
[2017-01-20] MEDS ORDERED: oxyCODONE HCL 5 MG TABLET PO ONE (18:02)
--- NOTE | 2017-01-20 18:23 | PN ---
Physical Exam: SUBJECTIVE: Patient seen and examined in the ICU, to be transferred to [facility] floor. OBJECTIVE: patient was sitting in the chair, tolerating nasal cannula, vitals stable denies pain/discomfort Pt rescinded dnr/dni, now a full code Vital Signs Period Temp Pulse Resp BP Sys/Chandra Pulse Ox Last 24 Hr 97.7 F-98.4 F 55-76 12-24 120-144/50-78 91-92 GENERAL: The patient is awake, alert, and fully oriented, in no acute distress. HEAD: Normal with no signs of trauma. EYES: PERRL, extraocular movements intact, sclera anicteric, conjunctiva clear. No ptosis. ENT: Ears normal, nares patent, oropharynx clear without exudates, moist mucous membranes. NECK: Trachea midline, full range of motion, supple. LUNGS: Diminished lungs sounds posteriorly, tolerating nasal cannula HEART: Regular rate and rhythm ABDOMEN: Soft, nontender, nondistended, normoactive bowel sounds, no guarding, no rebound, no hepatosplenomegaly, no masses. EXTREMITIES: 2+ pulses, warm, well-perfused, no edema. NEUROLOGICAL: Normal speech, gait not observed. PSYCH: Normal mood, normal affect. SKIN: Warm, dry, normal turgor, no rashes or lesions noted Laboratory Results - last 24 hr 01/19/17 01/19/17 01/20/17 17:34 22:34 05:00 WBC 29.4 H RBC 3.83 L Hgb 10.9 L Hct 33.5 L MCV 87.6 MCHC 32.6 RDW 15.0 Plt Count 442 H MPV 9.4 Neutrophils % 77.0 Lymphocytes % 7.0 L Monocytes % 3.0 L Band Neutrophils 3.0 D Metamyelocytes 4 H D Myelocytes 4 H D Promyelocytes 2 H Platelet Estimate Increased Platelet Comment No clumping noted Sodium Potassium Chloride Carbon Dioxide Anion Gap BUN Creatinine Creat Clearance w eGFR POC Glucometer 191.17121 245.03403 Random Glucose Calcium Magnesium Total Bilirubin AST ALT Alkaline Phosphatase Total Protein Albumin 01/20/17 01/20/17 01/20/17 05:00 05:11 11:21 WBC RBC Hgb Hct MCV MCHC RDW Plt Count MPV Neutrophils % Lymphocytes % Monocytes % Band Neutrophils Metamyelocytes Myelocytes Promyelocytes Platelet Estimate Platelet Comment Sodium 141 Potassium 3.9 Chloride 100 Carbon Dioxide 29 Anion Gap 12 BUN 105 H* D Creatinine 1.8 H Creat Clearance w eGFR 37.71 POC Glucometer 221.66416 > 400 Random Glucose 179 H D Calcium 7.9 L Magnesium 2.3 Total Bilirubin 0.6 AST 31 D ALT 31 D Alkaline Phosphatase 108 Total Protein 4.9 L Albumin 1.8 L 01/20/17 17:31 WBC RBC Hgb Hct MCV MCHC RDW Plt Count MPV Neutrophils % Lymphocytes % Monocytes % Band Neutrophils Metamyelocytes Myelocytes Promyelocytes Platelet Estimate Platelet Comment Sodium Potassium Chloride Carbon Dioxide Anion Gap BUN Creatinine Creat Clearance w eGFR POC Glucometer 352 Random Glucose Calcium Magnesium Total Bilirubin AST ALT Alkaline Phosphatase Total Protein Albumin Active Medications Generic Name Dose Route Start Last Admin Trade Name Freq PRN Reason Stop Dose Admin Acetaminophen 650 mg 01/20/17 14:22 01/20/17 15:13 Tylenol - PO 650 mg Q6H PRN Administration FEVER OR PAIN Albuterol Sulfate 1 amp 01/20/17 14:22 Ventolin 0.5% - NEB Q4H PRN SHORT OF BREATH/WHEEZING Albuterol/Ipratropium 1 amp 01/20/17 18:00 01/20/17 17:38 Duoneb - NEB 1 amp QIDR RADHA Administration Aspirin 81 mg 01/21/17 10:00 Ecotrin - PO DAILY [facility] Atorvastatin Calcium 40 mg 01/20/17 22:00 Lipitor - PO HS [facility] Clopidogrel Bisulfate 75 mg 01/21/17 10:00 Plavix - PO DAILY [facility] Docusate Sodium 100 mg 01/20/17 22:00 Colace - PO BID [facility] Guaifenesin 1,200 mg 01/20/17 22:00 Mucinex - PO BID [facility] Heparin Sodium (Porcine) 5,000 unit 01/20/17 22:00 Heparin - SQ TID [facility] Vancomycin HCl 1,500 mg/ 500 mls @ 250 mls/hr 01/20/17 16:00 01/20/17 15:13 Dextrose IVPB 250 mls/hr Q48H [facility] Administration Protocol Insulin Aspart 1 vial 01/20/17 16:30 01/20/17 17:32 Novolog Vial Sliding Scale - SQ 10 units ACHS [facility] Administration Protocol Insulin Detemir 30 units 01/20/17 22:00 Levemir Vial SQ HS [facility] Insulin Detemir 45 units 01/21/17 07:00 Levemir Vial SQ AM [facility] Lactobacillus Acidophilus 1 tab 01/21/17 10:00 Bacid - PO DAILY [facility] Lorazepam 0.5 mg 01/20/17 14:22 Ativan - PO 01/21/17 12:57 TID PRN ANXIETY Methylprednisolone Sodium Succinate 60 mg 01/20/17 22:00 Solu-Medrol - IVPB Q12H [facility] Morphine Sulfate 60 mg 01/20/17 22:00 Ms Contin - PO TID [facility] Nicotine 21 mg 01/21/17 10:00 Nicoderm Patch - TD DAILY [facility] Pantoprazole Sodium 40 mg 01/20/17 22:00 Protonix 40mg Ivpb (Pre-Docked) IVPB BID [facility] Piperacillin Sod/Tazobactam Sod 3.375 gm 01/20/17 18:00 Zosyn 3.375gm Ivpb (Pre-Docked) IVPB Q8H-IV [facility] Protocol Polyethylene Glycol 17 gm 01/20/17 14:22 Miralax (For Daily Use) - PO BID PRN CONSTIPATION Senna 1 tab 01/20/17 22:00 Senna - PO BID [facility] ASSESSMENT/PLAN: Patient is 66 year old male with a past medical history of hypertension, hyperlipidemia, CHF, COPD, CKD, CAD s/p stents, diabetes with diabetic neuropathy and bilateral foot ulcers. He was admitted to the ICU for sepsis and acute respiratory distress. Pulmonary: Acute Respiratory Distress Assessment/Plan: Extubated yesterday, venti mask at 40% overnight, now on nasal cannula On symbicort, Titrated Solumedrol 60mg Q8H to Q12H Allbuterol PRN Monitor respiratory status Cardiology: Hypertension/CAD Assessment/Plan: Hypotensive overnight Holding hydralazine and lopressor due to low BP LETICIA when stable Cardiology following ID: Sepsis - secondary to bilateral foot ulcers and cellulitis Assessment/Plan:: On Vancomycin started 01/16/2017 Zosyn started 01/19/2017 +mrsa in blood cultures Monitor vitals Left 2nd toe amputation when stable : Chronic Kidney Disease stage 4 Assessment/Plan: Cr improving with elevated BUN, may be steroid induced Renal following monitor intake and output Endocrine: Diabetes Mellitus Assessment/Plan: On Levemir BID and sliding scale monitor BGMs F.E.N Fluids: tolerating PO Electrolytes: monitor electrolytes Nutrition: as tolerated Prophylaxis DVT: heparin TID SQ GI: on Protonix Disposition: Patient transferred to [facility], is now a full code, as he rescinded his dnr/dni status. Full Code. Visit type - Emergency Visit Emergency Visit: Yes ED Registration Date: 01/12/17 Care time: The patient presented to the Emergency Department on the above date and was hospitalized for further evaluation of their emergent condition. - New Patient This patient is new to me today: No - Critical Care Critical Care patient: Yes Total Critical Care Time (in minutes): 60 Critical Care Statement: The care of this patient involved high complexity decision making to prevent further life threatening deterioration of the patient 's condition and/or to evalute & treat vital organ system(s) failure or risk of failure. - Discharge Referral Referred to [facility] Med P.C.: No
[2017-01-20] MEDS: ATORVASTATIN CA 40 MG TABLET (FP) PO SCH (21:15)
[2017-01-20] MEDS: INSULIN DETEMIR 100 UNITS/ML MDV SQ SCH (21:15)
[2017-01-20] MEDS: methylPREDNISolone NA SUCC 40 MG/1 ML VIAL IVPB SCH (21:19)
[2017-01-20] MEDS ORDERED: methylPREDNISolone NA SUCC 40 MG/1 ML VIAL IVPB SCH (22:00)
[2017-01-21] MEDS: ACETAMINOPHEN 325 MG TABLET (FP) PO PRN ×2 (01:37→09:48)
[2017-01-21] MEDS: PIPERACILLIN/TAZOB 3.375 GM/50 ML PRE-DOCKED IVPB SCH ×3 (01:38→17:43)
[2017-01-21] MEDS: INSULIN SLIDING SCALE (NOVOLOG) 1 VIAL SQ SCH ×4 (06:15→21:50)
[2017-01-21] MEDS: HEPARIN NA (PORCINE) 5,000 UNITS/ML 1ML VIAL SQ SCH ×3 (06:15→21:41)
[2017-01-21] MEDS: morphine SO4 SUSTAINED ACTING 30 MG TABLET.SA PO SCH ×3 (06:15→21:43)
[2017-01-21] MEDS: INSULIN DETEMIR 100 UNITS/ML MDV SQ SCH ×2 (06:16→21:42)
[2017-01-21 07:15] LABS: MCHC 32.9 g/dl (32.0-35.9); MEAN CELL VOLUME 88.2 fl (80-96); PLATELET COUNT 429 K/MM3 (134-434); WHITE BLOOD COUNT 26.7 K/mm3 (4.0-10.0)
[2017-01-21] MEDS: ALBUTEROL SO4 2.5/IPRATROPIUM 0.5 INH SOL 3 ML VIAL.NEB. NEB SCH ×4 (07:25→18:07)
[2017-01-21 08:00] LABS: BILIRUBIN,TOTAL 0.6 mg/dL (0.2-1.0); CALCIUM 7.8 mg/dL (8.5-10.1); CREATININE 1.6 mg/dL (0.7-1.3); MAGNESIUM 2.3 mg/dL (1.8-2.4); TOT PROT 5.3 g/dl (6.4-8.2)
--- NOTE | 2017-01-21 09:36 | PN ---
Progress Note, Physician Chief Complaint: chf History of Present Illness: no more sob; no orthopnea no cp no leg swelling feels like he's ready to go home - Current Medication List Current Medications: Active Medications Acetaminophen (Tylenol -) 650 mg PO Q6H PRN PRN Reason: FEVER OR PAIN Last Admin: 01/21/17 01:37 Dose: 650 mg Albuterol Sulfate (Ventolin 0.5% -) 1 amp NEB Q4H PRN PRN Reason: SHORT OF BREATH/WHEEZING Albuterol/Ipratropium (Duoneb -) 1 amp NEB QIDR [facility] Last Admin: 01/21/17 07:25 Dose: 1 amp Aspirin (Ecotrin -) 81 mg PO DAILY [facility] Atorvastatin Calcium (Lipitor -) 40 mg PO HS [facility] Last Admin: 01/20/17 21:15 Dose: 40 mg Clopidogrel Bisulfate (Plavix -) 75 mg PO DAILY [facility] Docusate Sodium (Colace -) 100 mg PO BID [facility] Last Admin: 01/20/17 21:14 Dose: 100 mg Guaifenesin (Mucinex -) 1,200 mg PO BID [facility] Last Admin: 01/20/17 21:17 Dose: 1,200 mg Heparin Sodium (Porcine) (Heparin -) 5,000 unit SQ TID [facility] Last Admin: 01/21/17 06:15 Dose: 5,000 unit Vancomycin HCl 1,500 mg/ (Dextrose) 500 mls @ 250 mls/hr IVPB Q48H [facility] PRN Reason: Protocol Last Admin: 01/20/17 15:13 Dose: 250 mls/hr Insulin Aspart (Novolog Vial Sliding Scale -) 1 vial SQ ACHS [facility] PRN Reason: Protocol Last Admin: 01/21/17 06:15 Dose: Not Given Insulin Detemir (Levemir Vial) 30 units SQ HS [facility] Last Admin: 01/20/17 21:15 Dose: 30 unit Insulin Detemir (Levemir Vial) 45 units SQ AM [facility] Last Admin: 01/21/17 06:16 Dose: 45 unit Lactobacillus Acidophilus (Bacid -) 1 tab PO DAILY [facility] Lorazepam (Ativan -) 0.5 mg PO TID PRN PRN Reason: ANXIETY Stop: 01/21/17 12:57 Last Admin: 01/20/17 21:19 Dose: 0.5 mg Methylprednisolone Sodium Succinate (Solu-Medrol -) 60 mg IVPB Q12H [facility] Last Admin: 01/20/17 21:19 Dose: 60 mg Morphine Sulfate (Ms Contin -) 60 mg PO TID [facility] Last Admin: 01/21/17 06:15 Dose: 60 mg Nicotine (Nicoderm Patch -) 21 mg TD DAILY [facility] Pantoprazole Sodium (Protonix 40mg Ivpb (Pre-Docked)) 40 mg IVPB BID [facility] Last Admin: 01/20/17 21:18 Dose: 40 mg Piperacillin Sod/Tazobactam Sod (Zosyn 3.375gm Ivpb (Pre-Docked)) 3.375 gm IVPB Q8H-IV [facility] PRN Reason: Protocol Last Admin: 01/21/17 01:38 Dose: 3.375 gm Polyethylene Glycol (Miralax (For Daily Use) -) 17 gm PO BID PRN PRN Reason: CONSTIPATION Senna (Senna -) 1 tab PO BID [facility] Last Admin: 01/20/17 21:18 Dose: 1 tab - Objective Vital Signs: Vital Signs Temperature 98.1 F 01/21/17 06:00 Pulse Rate 72 01/21/17 06:00 Respiratory Rate 20 01/21/17 06:00 Blood Pressure 137/72 01/21/17 06:00 O2 Sat by Pulse Oximetry (%) 95 01/20/17 21:00 Constitutional: Yes: Well Nourished, No Distress, Calm Cardiovascular: Yes: Regular Rate and Rhythm, S1, S2. No: Gallop, Murmur Respiratory: Yes: Regular, Diminished (R base). No: Accessory Muscle Use, Rales , Wheezes Extremities: No: Cold Edema: No Neurological: Yes: Alert, Oriented Psychiatric: No: Agitated Labs: CBC, BMP 01/21/17 06:00 01/21/17 06:00 Assessment/Plan Echo 2014: mod global HK (TDS for rwma); RV tds; trace AI; no RVSP Echo 12/2016: TDS; LVSF is "at least mildly reduced: RWM assessment tds; nl RV; nl LA; mild MR/TR; no veg seen STAT repeat Echo 01/17/17--images reviewed by Dr. Mckeon: no vegetation seen; redundant, highly mobile anterior chorda to anterior MV leaflet--cannot definitively exclude vegetation attached to chord though not highly suspicious. no AV or TV vege seen. no MR/TR/AI. EF mod-severely decr'd, ? global (cannot accurately assess for RWMAs)--suspect EF is 35-40%. RV normal size, fxn not well visualized. a/p: acute hypoxic/hypercapneic resp failure, acute syst chf/isch CMP, ? PNA ( infiltrate on CXR), ? a.e. copd: - CXR c/w chf (vascular redistribution, interstitial edema) - no valve dysfunction on rpt echo - etiol of chf is likely mod-severe LV systolic dysfunction with IV hydration contributing; ? sepsis causing some transient myocardial dysfunction as well - s/p lasix 60 ivp x 1 01/17--CXR signif improved as of am 01/18 - CXR 01/18 pm thru 01/20 has been slightly worsened, though overall improved vs day of acute resp failure on 01/17 - CVP was low in ICU, was getting gentle ivf--fluids now off - 01/21 cxr continues to show bibasilar opacities and incr'd interstitial marking , ? residual R > L effusions +/- interstitial edema (superimposed on ? R lung infiltrated) -no sob, however given cxr appearance and pt's recent severe resp decompensation few days ago, will give dose lasix 40 iv x 1 today -steroids, abx per pulm -was on toprol 50 qd at home; bp stable--change to toprol 25 bid (syst chf dose regimen) -not being treated with WENDY by outpt cardio--? due to labile creats (to 3 at times in past here)--defer to f/u with dr erick Todd Aureus Bacteremia/Sepsis: -Source likely non-healing ulcer -Abx as per ICU team -repeat echo with no valve dysfunction; cannot definitively exclude veg on anterior MV chorda but could all be redundant chord--either way, clearly this is not etiologic in his acute chf given no MR present. -repeat BCx's neg to date. LETICIA on hold for now. CAD: -follows with dr roddy suarez cardio -s/p PCI (LIBBY) to 100% occl RPDA in 2004 ([facility]) with patent prior RCA stents at that time, EF 50% then; -s/p anterior STEMI 2011 with [place] LIBBY x 2 to mid LAD then ([facility]); residual dz then included 80% prox D1 (large vessel), 95% mD1; 70%mRCA (pre and post prior stents); 40% RPDA; 60% pCFX; 40% mCFX; 70% dCFX; EF then 37% with AK of apex/AL lindsey and AK of IW; -continue lipitor, plavix, ASA -trop 0.3 at time of acute chf 01/17-->0.2-->0.1 -ecg on day of acute chf with worsening of baseline ST-Ts anterior leads -above enzymes/ecg findings are all c/w acute chf/increased LV wall tension, though cannot definitively exclude a component of acute ischemia -given rapid improvement with diuresis and no anginal CP, will defer further ischemia w/u here if remains without unstable angina/ACS findings--pt will f/u with dr suarez cardio after discharge VTach: -runs of NSVT at times here -EF possibly mild decreased on echo -01/18 EKG with prolongation of qt interval in addition to frequent pvc's. --> K/ Mag > 2/4 per usual, cont bb as doing, monitor tele. Will d/c zofran. -01/19-: tele unremarkable arf on ckd: -improving -IVF as needed, CVP monitoring. tx of sepsis per crit care HTN: -per home med list, pt on toprol 50 and hydral 10 bid at home -now off pressors, monitor bp off meds for now Bradycardia - ? mobitz I vs II while sleeping on tele here previously--likely physiologic sec to hi vagal tone - tele with no bradyarrhtyhmias during this admit - no contraindication to b-blockers (has tolerated at home without dizzy/ syncope spells) h/o CVA: -dx'd lacunar infarct 02/10 clinically then (slurred speech) -? acute CVA/TIA 11/13, seen by neuro then--ASA added to prior plavix, remains on DAPT
[2017-01-21] MEDS: PANTOPRAZOLE SODIUM 40 MG/100 ML PRE-DOCKED IVPB SCH ×2 (09:39→21:44)
[2017-01-21] MEDS: methylPREDNISolone NA SUCC 40 MG/1 ML VIAL IVPB SCH ×2 (09:48→21:46)
[2017-01-21] MEDS: SENNOSIDES 8.6MG TABLET (FP) PO SCH ×2 (09:49→21:45)
[2017-01-21] MEDS: CLOPIDOGREL BISULFATE 75 MG TABLET (FP) PO SCH (09:49)
[2017-01-21] MEDS: guaiFENesin 600 MG TABLET.ER (FP) PO SCH ×2 (09:50→21:44)
[2017-01-21] MEDS: ASPIRIN COATED 81 MG TABLET.EC PO SCH (09:50)
[2017-01-21] MEDS: LACTOBACILLUS ACIDOPHILUS 1 EACH TAB (FP) PO SCH (09:52)
[2017-01-21] MEDS: DOCUSATE SODIUM 100 MG CAPSULE (FP) PO SCH ×2 (09:53→21:41)
[2017-01-21] MEDS: NICOTINE 21 MG/24 HOURS TOPICAL PATCH TD SCH (09:53)
[2017-01-21] MEDS: METOPROLOL SUCCINATE 25 MG TAB.SR.24H (FP) PO SCH ×2 (10:03→21:45)
--- NOTE | 2017-01-21 10:29 | PN ---
Progress Note (short form) - Note Progress Note: Patient seen and examined. Chart reviewed. Currently lying supine in bed alert , responsive and appropriate. Feels weak but denies new chest discomfort or dyspnea..Still has cough productive of some phlegm. Labs and programmer analyst consultant notes reviewed. Selected Entries 01/20/17 01/21/17 21:00 06:00 Temperature 98.1 F Pulse Rate 72 Respiratory 20 Rate Blood Pressure 137/72 O2 Sat by Pulse 95 Oximetry (%) Oxygen Delivery Nasal Cannula Method Oxygen Flow 3 Rate Laboratory Tests 01/21/17 01/21/17 06:00 06:00 WBC 26.7 H Hgb 11.4 L Hct 34.7 L Plt Count 429 Sodium 137 Potassium 4.4 Chloride 100 Carbon Dioxide 25 BUN 100 H Creatinine 1.6 H Random Glucose 162 H Calcium 7.8 L Magnesium 2.3 Total Bilirubin 0.6 AST 27 ALT 31 Alkaline Phosphatase 108 Total Protein 5.3 L Albumin 2.0 L Chest End-expiratory wheezes in lower lobes Cor RRR Abd Soft non-tender No mass Ext No edema Eschar second toe on left First toe on right foot Neuro No new focal deficit Assessment and Plan MRSA Septicemia On RX Acute hypoxemic hypercarbic respiratory failure Multifactorial Currently stable COPD Smoking history Pneumonitis Stable DM Stable Peripheral arterial disease/Left foot eschar with cellulitis Mulltifactorial with multiple vascular risk factors Foot care ASHD Post PCI with LIBBY to RPDA and RCA stents H/O STEMI See cardiology notes CHF Systolic dysfunction/Ischemic cardiomyopathy ARF/CRI Monitor volume status Mild Anemia 11.4/34.6 Multifactorial Monitor H/O VT Stable HTN Stable HPL Stable H/O CVA/Cerebrovascular insufficiency Hypoalbuminemia Multifactorial Acute/chronic inflammatory disease as well as nutritional factors Continue current Rx
[2017-01-21 10:34] LABS: PLATELET ESTIMATE ADEQUATE (NORMAL); SMUDGE CELLS FEW
[2017-01-21 10:35] LABS: ANISOCYTOSIS 1+; HYPOCHROMIA 1+; PLATELET COMMENT2 NO CLOTTING DETECTED; POIKILOCYTOSIS 1+
--- NOTE | 2017-01-21 11:53 | PN ---
Progress Note, Physician History of Present Illness: looks much better breathing much better on nasal canula - Current Medication List Current Medications: Active Medications Acetaminophen (Tylenol -) 650 mg PO Q6H PRN PRN Reason: FEVER OR PAIN Last Admin: 01/21/17 09:48 Dose: 650 mg Albuterol Sulfate (Ventolin 0.5% -) 1 amp NEB Q4H PRN PRN Reason: SHORT OF BREATH/WHEEZING Albuterol/Ipratropium (Duoneb -) 1 amp NEB QIDR [facility] Last Admin: 01/21/17 11:35 Dose: 1 amp Aspirin (Ecotrin -) 81 mg PO DAILY [facility] Last Admin: 01/21/17 09:50 Dose: 81 mg Atorvastatin Calcium (Lipitor -) 40 mg PO HS [facility] Last Admin: 01/20/17 21:15 Dose: 40 mg Clopidogrel Bisulfate (Plavix -) 75 mg PO DAILY [facility] Last Admin: 01/21/17 09:49 Dose: 75 mg Docusate Sodium (Colace -) 100 mg PO BID [facility] Last Admin: 01/21/17 09:53 Dose: 100 mg Guaifenesin (Mucinex -) 1,200 mg PO BID [facility] Last Admin: 01/21/17 09:50 Dose: 1,200 mg Heparin Sodium (Porcine) (Heparin -) 5,000 unit SQ TID [facility] Last Admin: 01/21/17 06:15 Dose: 5,000 unit Insulin Aspart (Novolog Vial Sliding Scale -) 1 vial SQ ACHS [facility] PRN Reason: Protocol Last Admin: 01/21/17 06:15 Dose: Not Given Insulin Detemir (Levemir Vial) 30 units SQ HS [facility] Last Admin: 01/20/17 21:15 Dose: 30 unit Insulin Detemir (Levemir Vial) 45 units SQ AM [facility] Last Admin: 01/21/17 06:16 Dose: 45 unit Lactobacillus Acidophilus (Bacid -) 1 tab PO DAILY [facility] Last Admin: 01/21/17 09:52 Dose: 1 tab Lorazepam (Ativan -) 0.5 mg PO TID PRN PRN Reason: ANXIETY Stop: 01/21/17 12:57 Last Admin: 01/20/17 21:19 Dose: 0.5 mg Methylprednisolone Sodium Succinate (Solu-Medrol -) 60 mg IVPB Q12H [facility] Last Admin: 01/21/17 09:48 Dose: 60 mg Metoprolol Succinate (Toprol Xl -) 25 mg PO BID [facility] Last Admin: 01/21/17 10:03 Dose: 25 mg Morphine Sulfate (Ms Contin -) 60 mg PO TID [facility] Last Admin: 01/21/17 06:15 Dose: 60 mg Nicotine (Nicoderm Patch -) 21 mg TD DAILY [facility] Last Admin: 01/21/17 09:53 Dose: 21 mg Pantoprazole Sodium (Protonix 40mg Ivpb (Pre-Docked)) 40 mg IVPB BID [facility] Last Admin: 01/21/17 09:39 Dose: 40 mg Piperacillin Sod/Tazobactam Sod (Zosyn 3.375gm Ivpb (Pre-Docked)) 3.375 gm IVPB Q8H-IV [facility] PRN Reason: Protocol Last Admin: 01/21/17 09:42 Dose: 3.375 gm Polyethylene Glycol (Miralax (For Daily Use) -) 17 gm PO BID PRN PRN Reason: CONSTIPATION Senna (Senna -) 1 tab PO BID [facility] Last Admin: 01/21/17 09:49 Dose: 1 tab - Objective Vital Signs: Vital Signs Temperature 98.3 F 01/21/17 10:00 Pulse Rate 72 01/21/17 10:58 Respiratory Rate 17 01/21/17 10:00 Blood Pressure 158/80 01/21/17 10:00 O2 Sat by Pulse Oximetry (%) 92 L 01/21/17 10:58 Constitutional: Yes: No Distress, Calm, Other (weak) Cardiovascular: Yes: Regular Rate and Rhythm Respiratory: Yes: Poor Air Entry, Rhonchi Gastrointestinal: Yes: Normal Bowel Sounds, Soft Musculoskeletal: Yes: Other Extremities: Yes: Other (non healing ulcer) Integumentary: Yes: Other Neurological: Yes: Alert, Oriented Psychiatric: Yes: Alert Labs: CBC, BMP 01/21/17 06:00 01/21/17 06:00 Assessment/Plan This patient treated couple of days back with cefazolin and flagyl now comes with fulminant infection and in sepsis with gram positive bacteremia i have a strong suspicion that now it might be a resistant organism I dont know how many days he was treated from last infection and how it was done. He has got vanco and zosyn he has very bad kidneys,but he also has severe infection and needs to be covered agree with the patient getting echo also patient leg does not look good and i am worried about deep seated infection Imaging - Results Chest X-ray: Report Reviewed, Image Reviewed Problem List - Problems (1) Sepsis Code(s): A41.9 - SEPSIS, UNSPECIFIED ORGANISM (2) Diabetic foot ulcer Code(s): E11.621 - TYPE 2 DIABETES MELLITUS WITH FOOT ULCER L97.509 - NON-PRESSURE CHRONIC ULCER OTH PRT UNSP FOOT W UNSP SEVERITY (3) Cellulitis of foot Code(s): L03.119 - CELLULITIS OF UNSPECIFIED PART OF LIMB (4) Renal failure (ARF), acute on chronic Code(s): N17.9 - ACUTE KIDNEY FAILURE, UNSPECIFIED N18.9 - CHRONIC KIDNEY DISEASE, UNSPECIFIED (5) CAD (coronary artery disease) Code(s): I25.10 - ATHSCL HEART DISEASE OF [place] CORONARY ARTERY W/O ANG PCTRS Qualifiers: Coronary Disease-Associated Artery/Lesion type: unspecified vessel or lesion type [place] vs. transplanted heart: [place] heart Associated angina: with stable angina Qualified Code(s): I25.119 - Atherosclerotic heart disease of [place] coronary artery with unspecified angina pectoris (6) COPD (chronic obstructive pulmonary disease) Code(s): J44.9 - CHRONIC OBSTRUCTIVE PULMONARY DISEASE, UNSPECIFIED Qualifiers : COPD type: unspecified COPD Qualified Code(s): J44.9 - Chronic obstructive pulmonary disease, unspecified (7) Chronic pain Code(s): G89.29 - OTHER CHRONIC PAIN (8) Diabetes mellitus Code(s): E11.9 - TYPE 2 DIABETES MELLITUS WITHOUT COMPLICATIONS Qualifiers: Diabetes mellitus type: type 1 Diabetes mellitus complication status: with hyperglycemia Qualified Code(s): E10.65 - Type 1 diabetes mellitus with hyperglycemia (9) Hyperlipidemia Code(s): E78.5 - HYPERLIPIDEMIA, UNSPECIFIED (10) Hypertension Code(s): I10 - ESSENTIAL (PRIMARY) HYPERTENSION (11) Tobacco abuse Code(s): Z72.0 - TOBACCO USE mrsa bacteremia back pain resp failure plan continue current mgmt vanco trough noted vanco stopped for the time being will repeat vanco levels on monday out of bed
[2017-01-21] MEDS ORDERED: FUROSEMIDE 40 MG/4 ML INJECTABLE VIAL IVPUSH ONE (13:00)
--- NOTE | 2017-01-21 15:57 | PN ---
Progress Note, Physician History of Present Illness: pulmonary alert,feeling better,-sob - Current Medication List Current Medications: Active Medications Acetaminophen (Tylenol -) 650 mg PO Q6H PRN PRN Reason: FEVER OR PAIN Last Admin: 01/21/17 09:48 Dose: 650 mg Albuterol Sulfate (Ventolin 0.5% -) 1 amp NEB Q4H PRN PRN Reason: SHORT OF BREATH/WHEEZING Albuterol/Ipratropium (Duoneb -) 1 amp NEB QIDR [facility] Last Admin: 01/21/17 11:35 Dose: 1 amp Aspirin (Ecotrin -) 81 mg PO DAILY [facility] Last Admin: 01/21/17 09:50 Dose: 81 mg Atorvastatin Calcium (Lipitor -) 40 mg PO HS [facility] Last Admin: 01/20/17 21:15 Dose: 40 mg Clopidogrel Bisulfate (Plavix -) 75 mg PO DAILY [facility] Last Admin: 01/21/17 09:49 Dose: 75 mg Docusate Sodium (Colace -) 100 mg PO BID [facility] Last Admin: 01/21/17 09:53 Dose: 100 mg Guaifenesin (Mucinex -) 1,200 mg PO BID [facility] Last Admin: 01/21/17 09:50 Dose: 1,200 mg Heparin Sodium (Porcine) (Heparin -) 5,000 unit SQ TID [facility] Last Admin: 01/21/17 14:48 Dose: 5,000 unit Insulin Aspart (Novolog Vial Sliding Scale -) 1 vial SQ ACHS [facility] PRN Reason: Protocol Last Admin: 01/21/17 11:57 Dose: 4 units Insulin Detemir (Levemir Vial) 30 units SQ HS [facility] Last Admin: 01/20/17 21:15 Dose: 30 unit Insulin Detemir (Levemir Vial) 45 units SQ AM [facility] Last Admin: 01/21/17 06:16 Dose: 45 unit Lactobacillus Acidophilus (Bacid -) 1 tab PO DAILY [facility] Last Admin: 01/21/17 09:52 Dose: 1 tab Methylprednisolone Sodium Succinate (Solu-Medrol -) 60 mg IVPB Q12H [facility] Last Admin: 01/21/17 09:48 Dose: 60 mg Metoprolol Succinate (Toprol Xl -) 25 mg PO BID [facility] Last Admin: 01/21/17 10:03 Dose: 25 mg Morphine Sulfate (Ms Contin -) 60 mg PO TID [facility] Last Admin: 01/21/17 13:00 Dose: 60 mg Nicotine (Nicoderm Patch -) 21 mg TD DAILY [facility] Last Admin: 01/21/17 09:53 Dose: 21 mg Pantoprazole Sodium (Protonix 40mg Ivpb (Pre-Docked)) 40 mg IVPB BID [facility] Last Admin: 01/21/17 09:39 Dose: 40 mg Piperacillin Sod/Tazobactam Sod (Zosyn 3.375gm Ivpb (Pre-Docked)) 3.375 gm IVPB Q8H-IV [facility] PRN Reason: Protocol Last Admin: 01/21/17 09:42 Dose: 3.375 gm Polyethylene Glycol (Miralax (For Daily Use) -) 17 gm PO BID PRN PRN Reason: CONSTIPATION Senna (Senna -) 1 tab PO BID [facility] Last Admin: 01/21/17 09:49 Dose: 1 tab - Objective Vital Signs: Vital Signs Temperature 97.6 F 01/21/17 14:22 Pulse Rate 67 01/21/17 14:22 Respiratory Rate 20 01/21/17 14:22 Blood Pressure 145/75 01/21/17 14:22 O2 Sat by Pulse Oximetry (%) 92 L 01/21/17 10:58 Constitutional: Yes: Well Nourished, Calm Eyes: Yes: WNL HENT: Yes: WNL Neck: Yes: Supple Cardiovascular: Yes: Regular Rate and Rhythm, S1, S2 Respiratory: Yes: Rhonchi (few scattered mitra rhonchi) Gastrointestinal: Yes: Normal Bowel Sounds, Soft Extremities: Yes: WNL Edema: No Labs: CBC, BMP 01/21/17 06:00 01/21/17 06:00 - ....Imaging Chest X-ray: Report Reviewed, Image Reviewed Problem List - Problems (1) Acute respiratory failure Code(s): J96.00 - ACUTE RESPIRATORY FAILURE, UNSP W HYPOXIA OR HYPERCAPNIA (2) Bacteremia Code(s): R78.81 - BACTEREMIA (3) Abnormal chest x-ray Code(s): R93.8 - ABNORMAL FINDINGS ON DIAGNOSTIC IMAGING OF BODY STRUCTURES (4) Acute on chronic systolic and diastolic heart failure, NYHA class 2 Code(s): I50.43 - ACUTE ON CHRONIC COMBINED SYSTOLIC AND DIASTOLIC HRT FAIL (5) Back pain Code(s): M54.9 - DORSALGIA, UNSPECIFIED (6) CAD (coronary artery disease) Code(s): I25.10 - ATHSCL HEART DISEASE OF [place] CORONARY ARTERY W/O ANG PCTRS Qualifiers: Coronary Disease-Associated Artery/Lesion type: unspecified vessel or lesion type [place] vs. transplanted heart: [place] heart Associated angina: with stable angina Qualified Code(s): I25.118 - Atherosclerotic heart disease of [place] coronary artery with other forms of angina pectoris (7) CKD (chronic kidney disease) Code(s): N18.9 - CHRONIC KIDNEY DISEASE, UNSPECIFIED (8) COPD (chronic obstructive pulmonary disease) Code(s): J44.9 - CHRONIC OBSTRUCTIVE PULMONARY DISEASE, UNSPECIFIED Qualifiers : COPD type: unspecified COPD Qualified Code(s): J44.9 - Chronic obstructive pulmonary disease, unspecified (9) Congestive heart failure (CHF) Code(s): I50.9 - HEART FAILURE, UNSPECIFIED Qualifiers: Congestive heart failure chronicity: chronic (10) Diabetes mellitus Code(s): E11.9 - TYPE 2 DIABETES MELLITUS WITHOUT COMPLICATIONS Qualifiers: Diabetes mellitus type: type 1 Diabetes mellitus complication status: with hyperglycemia Qualified Code(s): E10.65 - Type 1 diabetes mellitus with hyperglycemia (11) Renal failure (ARF), acute on chronic Code(s): N17.9 - ACUTE KIDNEY FAILURE, UNSPECIFIED N18.9 - CHRONIC KIDNEY DISEASE, UNSPECIFIED (12) Sepsis Code(s): A41.9 - SEPSIS, UNSPECIFIED ORGANISM Assessment/Plan ASSESSMENT AND PLAN: Acute Hypoxic Respiratory Failure resolved Likely Aspiration Pneumonia MRSA Bacteremia Cellulitis Severe Sepsis resolved Lactic Acidosis Acute on Chronic Renal Failure Acute COPD Exacerbation CAD s/p stents PAD DM Smoker - ABX - wound care - O2 to maintain saturation - inhaled bronchodilators - ASA, plavix - DVT prophylaxis DR NASH
[2017-01-21] MEDS: ACLIDINIUM BROMIDE 400 MCG/INH AERO.POWD IH SCH (19:33)
[2017-01-21] MEDS: ATORVASTATIN CA 40 MG TABLET (FP) PO SCH (21:43)
[2017-01-21] MEDS: LORazepam 0.5 MG TABLET PO PRN (22:35)
[2017-01-22] MEDS: ALBUTEROL SO4 2.5/IPRATROPIUM 0.5 INH SOL 3 ML VIAL.NEB. NEB SCH ×5 (00:07→23:03)
[2017-01-22] MEDS: PIPERACILLIN/TAZOB 3.375 GM/50 ML PRE-DOCKED IVPB SCH ×3 (01:49→18:19)
[2017-01-22] MEDS: ACETAMINOPHEN 325 MG TABLET (FP) PO PRN ×2 (03:44→23:00)
[2017-01-22] MEDS: morphine SO4 SUSTAINED ACTING 30 MG TABLET.SA PO SCH ×3 (05:59→22:58)
[2017-01-22] MEDS: HEPARIN NA (PORCINE) 5,000 UNITS/ML 1ML VIAL SQ SCH ×3 (05:59→22:56)
[2017-01-22] MEDS: INSULIN DETEMIR 100 UNITS/ML MDV SQ SCH ×2 (06:03→23:01)
[2017-01-22] MEDS: INSULIN SLIDING SCALE (NOVOLOG) 1 VIAL SQ SCH ×4 (06:07→23:07)
[2017-01-22 07:25] LABS: MCH 29.2 pg (25.7-33.7); MCHC 33.5 g/dl (32.0-35.9); MEAN CELL VOLUME 87.1 fl (80-96); PLATELET COUNT 429 K/MM3 (134-434); RDW 14.9 % (11.9-15.9); WHITE BLOOD COUNT 21.5 K/mm3 (4.0-10.0)
[2017-01-22 07:47] LABS: BILIRUBIN,TOTAL 0.6 mg/dL (0.2-1.0); CALCIUM 7.9 mg/dL (8.5-10.1); CREATININE 1.5 mg/dL (0.7-1.3); TOT PROT 5.3 g/dl (6.4-8.2)
[2017-01-22] MEDS: NICOTINE 21 MG/24 HOURS TOPICAL PATCH TD SCH (09:17)
[2017-01-22] MEDS: guaiFENesin 600 MG TABLET.ER (FP) PO SCH ×2 (09:18→22:58)
[2017-01-22] MEDS: LACTOBACILLUS ACIDOPHILUS 1 EACH TAB (FP) PO SCH (09:18)
[2017-01-22] MEDS: ASPIRIN COATED 81 MG TABLET.EC PO SCH (09:18)
[2017-01-22] MEDS: CLOPIDOGREL BISULFATE 75 MG TABLET (FP) PO SCH (09:18)
[2017-01-22] MEDS: DOCUSATE SODIUM 100 MG CAPSULE (FP) PO SCH ×2 (09:18→22:57)
[2017-01-22] MEDS: METOPROLOL SUCCINATE 25 MG TAB.SR.24H (FP) PO SCH ×2 (09:18→22:59)
[2017-01-22] MEDS: SENNOSIDES 8.6MG TABLET (FP) PO SCH ×2 (09:18→22:59)
[2017-01-22] MEDS: methylPREDNISolone NA SUCC 40 MG/1 ML VIAL IVPB SCH ×2 (09:19→22:56)
[2017-01-22] MEDS: PANTOPRAZOLE SODIUM 40 MG/100 ML PRE-DOCKED IVPB SCH ×2 (09:19→22:57)
--- NOTE | 2017-01-22 09:35 | PN ---
Progress Note, Physician Chief Complaint: chf History of Present Illness: denies sob, orthopnea; no cp, no leg swelling - Current Medication List Current Medications: Active Medications Acetaminophen (Tylenol -) 650 mg PO Q6H PRN PRN Reason: FEVER OR PAIN Last Admin: 01/22/17 03:44 Dose: 650 mg Albuterol Sulfate (Ventolin 0.5% -) 1 amp NEB Q4H PRN PRN Reason: SHORT OF BREATH/WHEEZING Albuterol/Ipratropium (Duoneb -) 1 amp NEB QIDR [facility] Last Admin: 01/22/17 06:30 Dose: 1 amp Aspirin (Ecotrin -) 81 mg PO DAILY [facility] Last Admin: 01/22/17 09:18 Dose: 81 mg Atorvastatin Calcium (Lipitor -) 40 mg PO HS [facility] Last Admin: 01/21/17 21:43 Dose: 40 mg Clopidogrel Bisulfate (Plavix -) 75 mg PO DAILY [facility] Last Admin: 01/22/17 09:18 Dose: 75 mg Docusate Sodium (Colace -) 100 mg PO BID [facility] Last Admin: 01/22/17 09:18 Dose: 100 mg Guaifenesin (Mucinex -) 1,200 mg PO BID [facility] Last Admin: 01/22/17 09:18 Dose: 1,200 mg Heparin Sodium (Porcine) (Heparin -) 5,000 unit SQ TID [facility] Last Admin: 01/22/17 05:59 Dose: 5,000 unit Insulin Aspart (Novolog Vial Sliding Scale -) 1 vial SQ ACHS [facility] PRN Reason: Protocol Last Admin: 01/22/17 06:07 Dose: 6 units Insulin Detemir (Levemir Vial) 30 units SQ HS [facility] Last Admin: 01/21/17 21:42 Dose: 30 unit Insulin Detemir (Levemir Vial) 45 units SQ AM [facility] Last Admin: 01/22/17 06:03 Dose: 45 unit Lactobacillus Acidophilus (Bacid -) 1 tab PO DAILY [facility] Last Admin: 01/22/17 09:18 Dose: 1 tab Lorazepam (Ativan -) 0.5 mg PO Q8H PRN PRN Reason: AGITATION Last Admin: 01/21/17 22:35 Dose: 0.5 mg Methylprednisolone Sodium Succinate (Solu-Medrol -) 60 mg IVPB Q12H [facility] Last Admin: 01/22/17 09:19 Dose: 60 mg Metoprolol Succinate (Toprol Xl -) 25 mg PO BID [facility] Last Admin: 01/22/17 09:18 Dose: 25 mg Morphine Sulfate (Ms Contin -) 60 mg PO TID [facility] Last Admin: 01/22/17 05:59 Dose: 60 mg Nicotine (Nicoderm Patch -) 21 mg TD DAILY [facility] Last Admin: 01/22/17 09:17 Dose: 21 mg Pantoprazole Sodium (Protonix 40mg Ivpb (Pre-Docked)) 40 mg IVPB BID [facility] Last Admin: 01/22/17 09:19 Dose: 40 mg Piperacillin Sod/Tazobactam Sod (Zosyn 3.375gm Ivpb (Pre-Docked)) 3.375 gm IVPB Q8H-IV [facility] PRN Reason: Protocol Last Admin: 01/22/17 01:49 Dose: 3.375 gm Polyethylene Glycol (Miralax (For Daily Use) -) 17 gm PO BID PRN PRN Reason: CONSTIPATION Senna (Senna -) 1 tab PO BID [facility] Last Admin: 01/22/17 09:18 Dose: 1 tab - Objective Vital Signs: Vital Signs Temperature 98.1 F 01/22/17 06:00 Pulse Rate 56 L 01/22/17 06:00 Respiratory Rate 20 01/22/17 06:00 Blood Pressure 140/72 01/22/17 06:00 O2 Sat by Pulse Oximetry (%) 92 L 01/21/17 21:00 Constitutional: Yes: Well Nourished, No Distress, Calm Cardiovascular: Yes: Regular Rate and Rhythm, S1, S2. No: Gallop, Murmur Respiratory: Yes: Regular, CTA Bilaterally, Rhonchi. No: Accessory Muscle Use, Rales, Wheezes Extremities: No: Cold Edema: No Neurological: Yes: Alert, Oriented Psychiatric: No: Agitated Labs: CBC, BMP 01/22/17 06:00 01/22/17 06:00 Assessment/Plan Echo 2014: mod global HK (TDS for rwma); RV tds; trace AI; no RVSP Echo 12/2016: TDS; LVSF is "at least mildly reduced: RWM assessment tds; nl RV; nl LA; mild MR/TR; no veg seen STAT repeat Echo 01/17/17--images reviewed by Dr. Mckeon: no vegetation seen; redundant, highly mobile anterior chorda to anterior MV leaflet--cannot definitively exclude vegetation attached to chord though not highly suspicious. no AV or TV vege seen. no MR/TR/AI. EF mod-severely decr'd, ? global (cannot accurately assess for RWMAs)--suspect EF is 35-40%. RV normal size, fxn not well visualized. acute hypoxic/hypercapneic resp failure, acute syst chf/isch CMP, ? PNA ( infiltrate on CXR), ? a.e. copd: - CXR c/w chf (vascular redistribution, interstitial edema) - no valve dysfunction on rpt echo - etiol of chf is likely mod-severe LV systolic dysfunction with IV hydration contributing; ? sepsis causing some transient myocardial dysfunction as well - s/p lasix 60 ivp x 1 01/17--CXR signif improved as of am 01/18 - CXR 01/18 pm thru 01/20 has been slightly worsened, though overall improved vs day of acute resp failure on 01/17 - CVP was low in ICU, was getting gentle ivf--fluids now off - 01/21 cxr continues to show bibasilar infiltrates and R mid-lung infiltrate, incr'd vs admit and vs prior 12/16; no sob; lasix 40 ivp x 1 given - 01/22: bun/creat continuing to improve; will give another dose lasix 40 ivp x 1 today, recheck CXR in am -steroids, abx per pulm -was on toprol 50 qd at home; bp stable--change to toprol 25 bid (syst chf dose regimen) -not being treated with WENDY by outpt cardio--? due to labile creats (to 3 at times in past here)--defer to f/u with dr suarez MRSA Bacteremia/Sepsis: -Source likely non-healing ulcer -Echo x 2 here no definite vegetation (cannot definitively exclude veg on anterior MV chorda though more likely due to redundant chord); no valve dysfunction -repeat BCx's neg to date -will d/w dr cristobal: if clinically suspect bacteremia source is pt's foot wound, then clinical suspicion of SBE is low in light of no persistent bacteremia and echo findings not suspicious -however if clinical picture remains uncertain, and LETICIA will help determine duration of ABX, then will do prior to discharge CAD: -follows with dr roddy suarez cardio -s/p PCI (LIBBY) to 100% occl RPDA in 2004 ([place]) with patent prior RCA stents at that time, EF 50% then; -s/p anterior STEMI 2011 with [place] LIBBY x 2 to mid LAD then ([place]); residual dz then included 80% prox D1 (large vessel), 95% mD1; 70%mRCA (pre and post prior stents); 40% RPDA; 60% pCFX; 40% mCFX; 70% dCFX; EF then 37% with AK of apex/AL lindsey and AK of IW; -continue lipitor, plavix, ASA -trop 0.3 at time of acute chf 01/17-->0.2-->0.1 -ecg on day of acute chf with worsening of baseline ST-Ts anterior leads -above enzymes/ecg findings are all c/w acute chf/increased LV wall tension, though cannot definitively exclude a component of acute ischemia -given rapid improvement with diuresis and no anginal CP, will defer further ischemia w/u here if remains without unstable angina/ACS findings--pt will f/u with dr suarez cardio after discharge VTach: -runs of NSVT at times here -EF possibly mild decreased on echo -01/18 EKG with prolongation of qt interval in addition to frequent pvc's. --> K/ Mag > 2/4 per usual, cont bb as doing, monitor tele. Will d/c zofran. -01/19-: tele unremarkable arf on ckd: -improving -IVF as needed, CVP monitoring. tx of sepsis per crit care HTN: -per home med list, pt on toprol 50 and hydral 10 bid at home -now off pressors, monitor bp off meds for now Bradycardia - ? mobitz I vs II while sleeping on tele here previously--likely physiologic sec to hi vagal tone - tele with no bradyarrhtyhmias during this admit - no contraindication to b-blockers (has tolerated at home without dizzy/ syncope spells) h/o CVA: -dx'd lacunar infarct 02/10 clinically then (slurred speech) -? acute CVA/TIA 11/13, seen by neuro then--ASA added to prior plavix, remains on DAPT
[2017-01-22 09:44] LABS: ANISOCYTOSIS 1+; HYPOCHROMIA 1+; METAMYELOCYTE 3 % (0-2); PLATELET COMMENT2 FEW GIANT PLTS; PLATELET COMMENT3 NO CLOTTING DETECTED; PLATELET ESTIMATE SLT INCREASED (NORMAL); POIKILOCYTOSIS 1+
[2017-01-22] MEDS ORDERED: FUROSEMIDE 40 MG/4 ML INJECTABLE VIAL IVPUSH ONE (10:00)
--- NOTE | 2017-01-22 10:40 | PN ---
Progress Note (short form) - Note Progress Note: Patient seen and examined. Chart reviewed. Currently lying supine in bed asleep on rounds. No obvious discomfort or increased dyspnea..Still has cough productive of some phlegm as described by nurses. Labs and investigations consultant notes reviewed. Selected Entries 01/22/17 06:00 Temperature 98.1 F Pulse Rate 56 L Respiratory 20 Rate Blood Pressure 140/72 Weight 193 lb 11.2 oz Weight Standing Scale Measurement Method Laboratory Tests 01/22/17 01/22/17 06:00 06:00 WBC 21.5 H Hgb 11.3 L Hct 33.8 L Plt Count 429 Sodium 138 Potassium 4.6 Chloride 101 Carbon Dioxide 27 BUN 88 H Creatinine 1.5 H Random Glucose 254 H D Calcium 7.9 L Total Bilirubin 0.6 AST 17 D ALT 29 Alkaline Phosphatase 98 Total Protein 5.3 L Albumin 2.0 L Chest End-expiratory wheezes in lower lobes Cor RRR Abd Soft non-tender No mass Ext No edema Eschar second toe on left First toe on right foot Neuro No new focal deficit Assessment and Plan MRSA Septicemia On RX Acute hypoxemic hypercarbic respiratory failure Multifactorial Currently stable COPD Smoking history Pneumonitis Stable DM Stable Peripheral arterial disease/Left foot eschar with cellulitis Multifactorial with multiple vascular risk factors Foot care ASHD Post PCI with LIBBY to RPDA and RCA stents H/O STEMI See cardiology notes CHF Systolic dysfunction/Ischemic cardiomyopathy ARF/CRI BUN/Cr 88/1.5 Monitor volume status Mild Anemia 11.4/34.6>>11.3/33.8 Multifactorial Monitor H/O VT Stable HTN Stable HPL Stable H/O CVA/Cerebrovascular insufficiency Hypoalbuminemia 2.0 Multifactorial Acute/chronic inflammatory disease as well as nutritional factors Continue current Rx
[2017-01-22] MEDS: morphine CARPU-JECT 2 MG/1 ML DISP.SYRIN IVPUSH PRN ×2 (12:16→18:55)
--- NOTE | 2017-01-22 13:05 | PN ---
Progress Note, Physician History of Present Illness: looks much better breathing much better on nasal canula sitting in chair - Current Medication List Current Medications: Active Medications Acetaminophen (Tylenol -) 650 mg PO Q6H PRN PRN Reason: FEVER OR PAIN Last Admin: 01/22/17 03:44 Dose: 650 mg Albuterol Sulfate (Ventolin 0.5% -) 1 amp NEB Q4H PRN PRN Reason: SHORT OF BREATH/WHEEZING Albuterol/Ipratropium (Duoneb -) 1 amp NEB QIDR [facility] Last Admin: 01/22/17 11:19 Dose: 1 amp Aspirin (Ecotrin -) 81 mg PO DAILY [facility] Last Admin: 01/22/17 09:18 Dose: 81 mg Atorvastatin Calcium (Lipitor -) 40 mg PO HS [facility] Last Admin: 01/21/17 21:43 Dose: 40 mg Clopidogrel Bisulfate (Plavix -) 75 mg PO DAILY [facility] Last Admin: 01/22/17 09:18 Dose: 75 mg Docusate Sodium (Colace -) 100 mg PO BID [facility] Last Admin: 01/22/17 09:18 Dose: 100 mg Guaifenesin (Mucinex -) 1,200 mg PO BID [facility] Last Admin: 01/22/17 09:18 Dose: 1,200 mg Heparin Sodium (Porcine) (Heparin -) 5,000 unit SQ TID [facility] Last Admin: 01/22/17 05:59 Dose: 5,000 unit Insulin Aspart (Novolog Vial Sliding Scale -) 1 vial SQ ACHS [facility] PRN Reason: Protocol Last Admin: 01/22/17 12:16 Dose: 4 units Insulin Detemir (Levemir Vial) 30 units SQ HS [facility] Last Admin: 01/21/17 21:42 Dose: 30 unit Insulin Detemir (Levemir Vial) 45 units SQ AM [facility] Last Admin: 01/22/17 06:03 Dose: 45 unit Lactobacillus Acidophilus (Bacid -) 1 tab PO DAILY [facility] Last Admin: 01/22/17 09:18 Dose: 1 tab Lorazepam (Ativan -) 0.5 mg PO Q8H PRN PRN Reason: AGITATION Last Admin: 01/21/17 22:35 Dose: 0.5 mg Methylprednisolone Sodium Succinate (Solu-Medrol -) 60 mg IVPB Q12H [facility] Last Admin: 01/22/17 09:19 Dose: 60 mg Metoprolol Succinate (Toprol Xl -) 25 mg PO BID [facility] Last Admin: 01/22/17 09:18 Dose: 25 mg Morphine Sulfate (Ms Contin -) 60 mg PO TID [facility] Last Admin: 01/22/17 05:59 Dose: 60 mg Morphine Sulfate (Morphine Injection -) 1 mg IVPUSH Q3H PRN PRN Reason: PAIN Last Admin: 01/22/17 12:16 Dose: 1 mg Nicotine (Nicoderm Patch -) 21 mg TD DAILY [facility] Last Admin: 01/22/17 09:17 Dose: 21 mg Pantoprazole Sodium (Protonix 40mg Ivpb (Pre-Docked)) 40 mg IVPB BID [facility] Last Admin: 01/22/17 09:19 Dose: 40 mg Piperacillin Sod/Tazobactam Sod (Zosyn 3.375gm Ivpb (Pre-Docked)) 3.375 gm IVPB Q8H-IV RAD[facility] PRN Reason: Protocol Last Admin: 01/22/17 10:37 Dose: 3.375 gm Polyethylene Glycol (Miralax (For Daily Use) -) 17 gm PO BID PRN PRN Reason: CONSTIPATION Senna (Senna -) 1 tab PO BID [facility] Last Admin: 01/22/17 09:18 Dose: 1 tab - Objective Vital Signs: Vital Signs Temperature 98.1 F 01/22/17 06:00 Pulse Rate 68 01/22/17 11:19 Respiratory Rate 20 01/22/17 06:00 Blood Pressure 140/72 01/22/17 06:00 O2 Sat by Pulse Oximetry (%) 91 L 01/22/17 11:19 Constitutional: Yes: No Distress, Calm Cardiovascular: Yes: Other Respiratory: Yes: Regular, Poor Air Entry, Rhonchi Gastrointestinal: Yes: Normal Bowel Sounds, Soft Musculoskeletal: Yes: Other Extremities: Yes: Other (non healing ulcer) Wound/Incision: Yes: Clean/Dry Neurological: Yes: Alert, Oriented Psychiatric: Yes: Alert, Oriented Labs: CBC, BMP 01/22/17 06:00 01/22/17 06:00 Assessment/Plan This patient treated couple of days back with cefazolin and flagyl now comes with fulminant infection and in sepsis with gram positive bacteremia i have a strong suspicion that now it might be a resistant organism I dont know how many days he was treated from last infection and how it was done. He has got vanco and zosyn he has very bad kidneys,but he also has severe infection and needs to be covered agree with the patient getting echo also patient leg does not look good and i am worried about deep seated infection Imaging - Results Chest X-ray: Report Reviewed, Image Reviewed Problem List - Problems (1) Sepsis Code(s): A41.9 - SEPSIS, UNSPECIFIED ORGANISM (2) Diabetic foot ulcer Code(s): E11.621 - TYPE 2 DIABETES MELLITUS WITH FOOT ULCER L97.509 - NON-PRESSURE CHRONIC ULCER OTH PRT UNSP FOOT W UNSP SEVERITY (3) Cellulitis of foot Code(s): L03.119 - CELLULITIS OF UNSPECIFIED PART OF LIMB (4) Renal failure (ARF), acute on chronic Code(s): N17.9 - ACUTE KIDNEY FAILURE, UNSPECIFIED N18.9 - CHRONIC KIDNEY DISEASE, UNSPECIFIED (5) CAD (coronary artery disease) Code(s): I25.10 - ATHSCL HEART DISEASE OF [place] CORONARY ARTERY W/O ANG PCTRS Qualifiers: Coronary Disease-Associated Artery/Lesion type: unspecified vessel or lesion type [place] vs. transplanted heart: [place] heart Associated angina: with stable angina Qualified Code(s): I25.119 - Atherosclerotic heart disease of [place] coronary artery with unspecified angina pectoris (6) COPD (chronic obstructive pulmonary disease) Code(s): J44.9 - CHRONIC OBSTRUCTIVE PULMONARY DISEASE, UNSPECIFIED Qualifiers : COPD type: unspecified COPD Qualified Code(s): J44.9 - Chronic obstructive pulmonary disease, unspecified (7) Chronic pain Code(s): G89.29 - OTHER CHRONIC PAIN (8) Diabetes mellitus Code(s): E11.9 - TYPE 2 DIABETES MELLITUS WITHOUT COMPLICATIONS Qualifiers: Diabetes mellitus type: type 1 Diabetes mellitus complication status: with hyperglycemia Qualified Code(s): E10.65 - Type 1 diabetes mellitus with hyperglycemia (9) Hyperlipidemia Code(s): E78.5 - HYPERLIPIDEMIA, UNSPECIFIED (10) Hypertension Code(s): I10 - ESSENTIAL (PRIMARY) HYPERTENSION (11) Tobacco abuse Code(s): Z72.0 - TOBACCO USE mrsa bacteremia back pain resp failure plan continue current mgmt vanco stopped for the time being will repeat vanc levels out of bed will probably stop zosyn tomorrow
[2017-01-22] MEDS: ATORVASTATIN CA 40 MG TABLET (FP) PO SCH (22:58)
[2017-01-22] MEDS: LORazepam 0.5 MG TABLET PO PRN (22:59)
[2017-01-23] MEDS: morphine CARPU-JECT 2 MG/1 ML DISP.SYRIN IVPUSH PRN ×5 (00:02→18:49)
[2017-01-23] MEDS: PIPERACILLIN/TAZOB 3.375 GM/50 ML PRE-DOCKED IVPB SCH ×3 (01:48→18:04)
[2017-01-23] MEDS: morphine SO4 SUSTAINED ACTING 30 MG TABLET.SA PO SCH ×3 (05:55→22:28)
[2017-01-23] MEDS: ALBUTEROL SO4 2.5/IPRATROPIUM 0.5 INH SOL 3 ML VIAL.NEB. NEB SCH ×3 (06:40→17:05)
[2017-01-23] MEDS: INSULIN DETEMIR 100 UNITS/ML MDV SQ SCH ×2 (06:51→22:29)
[2017-01-23] MEDS: HEPARIN NA (PORCINE) 5,000 UNITS/ML 1ML VIAL SQ SCH ×3 (06:51→22:23)
[2017-01-23] MEDS: INSULIN SLIDING SCALE (NOVOLOG) 1 VIAL SQ SCH ×4 (06:55→22:30)
[2017-01-23 07:37] LABS: MCH 28.8 pg (25.7-33.7); MCHC 32.2 g/dl (32.0-35.9); MEAN CELL VOLUME 89.3 fl (80-96); MEAN PLT VOLUME 8.9 fl (7.5-11.1); PLATELET COUNT 433 K/MM3 (134-434); RDW 15.2 % (11.9-15.9); WHITE BLOOD COUNT 26.2 K/mm3 (4.0-10.0)
[2017-01-23 08:10] LABS: ALBUMIN 2.1 g/dl (3.4-5.0); CALCIUM 8.2 mg/dL (8.5-10.1); CREATININE 1.4 mg/dL (0.7-1.3)
[2017-01-23 08:11] LABS: BILIRUBIN,TOTAL 0.8 mg/dL (0.2-1.0); TOT PROT 5.5 g/dl (6.4-8.2)
[2017-01-23] MEDS: LACTOBACILLUS ACIDOPHILUS 1 EACH TAB (FP) PO SCH (09:39)
[2017-01-23] MEDS: CLOPIDOGREL BISULFATE 75 MG TABLET (FP) PO SCH (09:40)
[2017-01-23] MEDS: ASPIRIN COATED 81 MG TABLET.EC PO SCH (09:40)
[2017-01-23] MEDS: guaiFENesin 600 MG TABLET.ER (FP) PO SCH ×2 (09:40→22:28)
[2017-01-23] MEDS: DOCUSATE SODIUM 100 MG CAPSULE (FP) PO SCH ×2 (09:41→22:23)
[2017-01-23] MEDS: NICOTINE 21 MG/24 HOURS TOPICAL PATCH TD SCH (09:41)
[2017-01-23] MEDS: METOPROLOL SUCCINATE 25 MG TAB.SR.24H (FP) PO SCH ×2 (09:41→22:29)
[2017-01-23] MEDS: SENNOSIDES 8.6MG TABLET (FP) PO SCH ×2 (09:41→22:28)
--- NOTE | 2017-01-23 09:58 | PN ---
Progress Note, Physician Chief Complaint: chf History of Present Illness: denies sob, cp, palpit, leg swelling - Current Medication List Current Medications: Active Medications Acetaminophen (Tylenol -) 650 mg PO Q6H PRN PRN Reason: FEVER OR PAIN Last Admin: 01/22/17 23:00 Dose: 650 mg Albuterol Sulfate (Ventolin 0.5% -) 1 amp NEB Q4H PRN PRN Reason: SHORT OF BREATH/WHEEZING Albuterol/Ipratropium (Duoneb -) 1 amp NEB QIDR [facility] Last Admin: 01/23/17 06:40 Dose: 1 amp Aspirin (Ecotrin -) 81 mg PO DAILY [facility] Last Admin: 01/23/17 09:40 Dose: 81 mg Atorvastatin Calcium (Lipitor -) 40 mg PO HS [facility] Last Admin: 01/22/17 22:58 Dose: 40 mg Clopidogrel Bisulfate (Plavix -) 75 mg PO DAILY [facility] Last Admin: 01/23/17 09:40 Dose: 75 mg Docusate Sodium (Colace -) 100 mg PO BID [facility] Last Admin: 01/23/17 09:41 Dose: 100 mg Guaifenesin (Mucinex -) 1,200 mg PO BID [facility] Last Admin: 01/23/17 09:40 Dose: 1,200 mg Heparin Sodium (Porcine) (Heparin -) 5,000 unit SQ TID [facility] Last Admin: 01/23/17 06:51 Dose: 5,000 unit Insulin Aspart (Novolog Vial Sliding Scale -) 1 vial SQ ACHS [facility] PRN Reason: Protocol Last Admin: 01/23/17 06:55 Dose: Not Given Insulin Detemir (Levemir Vial) 30 units SQ HS [facility] Last Admin: 01/22/17 23:01 Dose: 30 unit Insulin Detemir (Levemir Vial) 45 units SQ AM [facility] Last Admin: 01/23/17 06:51 Dose: 45 unit Lactobacillus Acidophilus (Bacid -) 1 tab PO DAILY [facility] Last Admin: 01/23/17 09:39 Dose: 1 tab Lorazepam (Ativan -) 0.5 mg PO Q8H PRN PRN Reason: AGITATION Last Admin: 01/22/17 22:59 Dose: 0.5 mg Methylprednisolone Sodium Succinate (Solu-Medrol -) 60 mg IVPB Q12H [facility] Last Admin: 01/22/17 22:56 Dose: 60 mg Metoprolol Succinate (Toprol Xl -) 25 mg PO BID [facility] Last Admin: 01/23/17 09:41 Dose: 25 mg Morphine Sulfate (Ms Contin -) 60 mg PO TID [facility] Last Admin: 01/23/17 05:55 Dose: 60 mg Morphine Sulfate (Morphine Injection -) 1 mg IVPUSH Q3H PRN PRN Reason: PAIN Last Admin: 01/23/17 06:52 Dose: 1 mg Nicotine (Nicoderm Patch -) 21 mg TD DAILY [facility] Last Admin: 01/23/17 09:41 Dose: 21 mg Pantoprazole Sodium (Protonix 40mg Ivpb (Pre-Docked)) 40 mg IVPB BID [facility] Last Admin: 01/22/17 22:57 Dose: 40 mg Piperacillin Sod/Tazobactam Sod (Zosyn 3.375gm Ivpb (Pre-Docked)) 3.375 gm IVPB Q8H-IV [facility] PRN Reason: Protocol Last Admin: 01/23/17 09:38 Dose: 3.375 gm Polyethylene Glycol (Miralax (For Daily Use) -) 17 gm PO BID PRN PRN Reason: CONSTIPATION Senna (Senna -) 1 tab PO BID [facility] Last Admin: 01/23/17 09:41 Dose: 1 tab - Objective Vital Signs: Vital Signs Temperature 98 F 01/23/17 06:00 Pulse Rate 65 01/23/17 06:00 Respiratory Rate 20 01/23/17 06:00 Blood Pressure 144/82 01/23/17 06:00 O2 Sat by Pulse Oximetry (%) 94 L 01/22/17 22:00 Constitutional: Yes: Well Nourished, No Distress, Calm Cardiovascular: Yes: Regular Rate and Rhythm, S1, S2. No: JVD, Gallop, Murmur Respiratory: Yes: Regular, CTA Bilaterally. No: Accessory Muscle Use, Wheezes Extremities: No: Cold Edema: No Neurological: Yes: Alert, Oriented Psychiatric: No: Agitated Labs: CBC, BMP 01/23/17 06:15 01/23/17 06:15 Assessment/Plan Echo 2014: mod global HK (TDS for rwma); RV tds; trace AI; no RVSP Echo 12/2016: TDS; LVSF is "at least mildly reduced: RWM assessment tds; nl RV; nl LA; mild MR/TR; no veg seen STAT repeat Echo 01/17/17--images reviewed by Dr. Mckeon: no vegetation seen; redundant, highly mobile anterior chorda to anterior MV leaflet--cannot definitively exclude vegetation attached to chord though not highly suspicious. no AV or TV vege seen. no MR/TR/AI. EF mod-severely decr'd, ? global (cannot accurately assess for RWMAs)--suspect EF is 35-40%. RV normal size, fxn not well visualized. acute hypoxic/hypercapneic resp failure, acute syst chf/isch CMP, ? PNA ( infiltrate on CXR), ? a.e. copd: - CXR c/w chf (vascular redistribution, interstitial edema) - no valve dysfunction on rpt echo - etiol of chf is likely mod-severe LV systolic dysfunction with IV hydration contributing; ? sepsis causing some transient myocardial dysfunction as well - s/p lasix 60 ivp x 1 01/17--CXR signif improved as of am 01/18 - CXR 01/18 pm thru 01/20 has been slightly worsened, though overall improved vs day of acute resp failure on 01/17 - CVP was low in ICU, was getting gentle ivf--fluids now off - 01/21 cxr continues to show bibasilar infiltrates and R mid-lung infiltrate, incr'd vs admit and vs prior 12/16; no sob; lasix 40 ivp x 1 given - 01/22: bun/creat continuing to improve; will give another dose lasix 40 ivp x 1 today - 01/23: cxr reviewed--improving in R mid lung and L lower; renal fxn stable-- rpt lasix 40 iv x 1 today, start 40mg po daily tomorrow -should have outpt cardio f/u within 2 wks to monitor chf status--says he last saw prior cardio cindy) years ago--advised importance of cardio f/u to monitor chf status, lasix effect/lytes and creat, and also to monitor his heart and make sure no infection present--he says he prefers to only f/u with dr gale -informed dr gale of plan re: lasix and f/u echo in office 4 wks -steroids, abx per pulm -was on toprol 50 qd at home; bp stable--change to toprol 25 bid (syst chf dose regimen) -not being treated with WENDY by outpt cardio--? due to labile creats (to 3 at times in past here) MRSA Bacteremia/Sepsis: -Source likely non-healing ulcer -Echo x 2 here no definite vegetation (cannot definitively exclude veg on anterior MV chorda though more likely due to redundant chord); no valve dysfunction -repeat BCx's neg to date -d/w'd dr cristobal--his clinical suspicion for SBE is low, likely source of MRSA bacteremia is diabetic leg wound; -will defer LETICIA, as the aforementioned echo finding is highly likely to represent highly redundant chorda vibrations (i.e. non-pathological). -will repeat echo as outpatient in 4 wks to rule out developing veg on chorda CAD: -follows with dr roddy suarez cardio -s/p PCI (LIBBY) to 100% occl RPDA in 2004 ([facility]te[place]on[facility]) with patent prior RCA stents at that time, EF 50% then; -s/p anterior STEMI 2011 with Mina LIBBY x 2 to mid LAD then (monte); residual dz then included 80% prox D1 (large vessel), 95% mD1; 70%mRCA (pre and post prior stents); 40% RPDA; 60% pCFX; 40% mCFX; 70% dCFX; EF then 37% with AK of apex/AL lindsey and AK of IW; -trop 0.3 at time of acute chf 01/17-->0.2-->0.1 -ecg on day of acute chf with worsening of baseline ST-Ts anterior leads -above enzymes/ecg findings are all c/w acute chf/increased LV wall tension, though cannot definitively exclude a component of acute ischemia -given rapid improvement with diuresis and no anginal CP, will defer further ischemia w/u here if remains without unstable angina/ACS findings--pt will f/u with dr suarez cardio after discharge -continue lipitor, ASA, BB, plavix (on this for cva secondary prevention) VTach: -runs of NSVT at times here -EF possibly mild decreased on echo -01/18 EKG with prolongation of qt interval in addition to frequent pvc's. --> K/ Mag > 2/4 per usual, cont bb as doing, monitor tele. Will d/c zofran. -01/19-: tele unremarkable arf on ckd: -improving -IVF as needed, CVP monitoring. tx of sepsis per crit care HTN: -per home med list, pt on toprol 50 and hydral 10 bid at home -now off pressors, monitor bp off meds for now Bradycardia - ? mobitz I vs II while sleeping on tele here previously--likely physiologic sec to hi vagal tone - tele with no bradyarrhtyhmias during this admit - no contraindication to b-blockers (has tolerated at home without dizzy/ syncope spells) h/o CVA: -dx'd lacunar infarct 02/10 clinically then (slurred speech) -? acute CVA/TIA 11/13, seen by neuro then--ASA added to prior plavix, remains on DAPT
[2017-01-23] MEDS ORDERED: FUROSEMIDE 40 MG/4 ML INJECTABLE VIAL IVPUSH ONE (10:15)
[2017-01-23] MEDS: PANTOPRAZOLE SODIUM 40 MG/100 ML PRE-DOCKED IVPB SCH ×2 (10:44→23:41)
[2017-01-23] MEDS: methylPREDNISolone NA SUCC 40 MG/1 ML VIAL IVPB SCH ×2 (11:55→22:24)
--- NOTE | 2017-01-23 12:33 | PN ---
Progress Note (short form) - Note Progress Note: PULMONARY States breathing continues to improve. No fevers or chills. Wants to go home. Last Vital Signs Temp Pulse Resp BP Pulse Ox 98 F 64 20 144/82 94 L 01/23/17 06:00 01/23/17 10:50 01/23/17 06:00 01/23/17 06:00 01/23/17 10:50 Gen: less tachypneic Heart: RRR Lung: bilateral rhonchi, wheezes Abd: soft, nontender Ext: no edema, areas of toe dry necrosis CBC, BMP 01/23/17 06:15 01/23/17 06:15 Active Medications Acetaminophen (Tylenol -) 650 mg PO Q6H PRN PRN Reason: FEVER OR PAIN Last Admin: 01/22/17 23:00 Dose: 650 mg Albuterol Sulfate (Ventolin 0.5% -) 1 amp NEB Q4H PRN PRN Reason: SHORT OF BREATH/WHEEZING Albuterol/Ipratropium (Duoneb -) 1 amp NEB QIDR [facility] Last Admin: 01/23/17 11:05 Dose: 1 amp Aspirin (Ecotrin -) 81 mg PO DAILY [facility] Last Admin: 01/23/17 09:40 Dose: 81 mg Atorvastatin Calcium (Lipitor -) 40 mg PO HS [facility] Last Admin: 01/22/17 22:58 Dose: 40 mg Clopidogrel Bisulfate (Plavix -) 75 mg PO DAILY [facility] Last Admin: 01/23/17 09:40 Dose: 75 mg Docusate Sodium (Colace -) 100 mg PO BID [facility] Last Admin: 01/23/17 09:41 Dose: 100 mg Furosemide (Lasix -) 40 mg PO DAILY [facility] Guaifenesin (Mucinex -) 1,200 mg PO BID [facility] Last Admin: 01/23/17 09:40 Dose: 1,200 mg Heparin Sodium (Porcine) (Heparin -) 5,000 unit SQ TID [facility] Last Admin: 01/23/17 06:51 Dose: 5,000 unit Insulin Aspart (Novolog Vial Sliding Scale -) 1 vial SQ ACHS [facility] PRN Reason: Protocol Last Admin: 01/23/17 12:18 Dose: Not Given Insulin Detemir (Levemir Vial) [address] [facility] Last Admin: 01/22/17 23:01 Dose: 30 unit Insulin Detemir (Levemir Vial) 45 units SQ AM [facility] Last Admin: 01/23/17 06:51 Dose: 45 unit Lactobacillus Acidophilus (Bacid -) 1 tab PO DAILY [facility] Last Admin: 01/23/17 09:39 Dose: 1 tab Lorazepam (Ativan -) 0.5 mg PO Q8H PRN PRN Reason: AGITATION Last Admin: 01/22/17 22:59 Dose: 0.5 mg Methylprednisolone Sodium Succinate (Solu-Medrol -) 60 mg IVPB Q12H [facility] Last Admin: 01/23/17 11:55 Dose: 60 mg Metoprolol Succinate (Toprol Xl -) 25 mg PO BID [facility] Last Admin: 01/23/17 09:41 Dose: 25 mg Morphine Sulfate (Ms Contin -) 60 mg PO TID [facility] Last Admin: 01/23/17 05:55 Dose: 60 mg Morphine Sulfate (Morphine Injection -) 1 mg IVPUSH Q3H PRN PRN Reason: PAIN Last Admin: 01/23/17 10:44 Dose: 1 mg Nicotine (Nicoderm Patch -) 21 mg TD DAILY [facility] Last Admin: 01/23/17 09:41 Dose: 21 mg Pantoprazole Sodium (Protonix 40mg Ivpb (Pre-Docked)) 40 mg IVPB BID [facility] Last Admin: 01/23/17 10:44 Dose: 40 mg Piperacillin Sod/Tazobactam Sod (Zosyn 3.375gm Ivpb (Pre-Docked)) 3.375 gm IVPB Q8H-IV [facility] PRN Reason: Protocol Last Admin: 01/23/17 09:38 Dose: 3.375 gm Polyethylene Glycol (Miralax (For Daily Use) -) 17 gm PO BID PRN PRN Reason: CONSTIPATION Senna (Senna -) 1 tab PO BID [facility] Last Admin: 01/23/17 09:41 Dose: 1 tab A/P Acute Hypoxic Respiratory Failure improved MRSA Bacteremia Cellulitis r/o Osteomyelitis Severe Sepsis Lactic Acidosis Acute on Chronic Renal Failure Acute COPD Exacerbation CAD s/p stents PAD DM Smoker - continue lasix - monitor urine output, creatinine - continue antibiotics per ID - wound care - taper FiO2 to keep SpO2 >90% - inhaled bronchodilators - ASA, plavix - DVT prophylaxis CCT 38'
--- NOTE | 2017-01-23 12:36 | PN ---
Progress Note (short form) - Note Progress Note: Podiatry: Seen and evaluated at bedside with , doing much better, breathing quite improved. Denies F/V/N/C. Afebrile, VSS. Patient extubated and out of ICU now. ZION: L foot: dorsal 2nd toe IPJ eschar, surrounding erythema vastly improved, no purulence, no fluctuance, no streaking cellulitis, no lymphangitis, no signs of active infection. Medial midfoot eschar, superficial and stable. R foot: dry gangrene hallux, superficial, no drainage, no fluctuance, no ascending cellulitis, no signs of active infection. 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 IV abx per ID 2. Clinical appearance of foot significantly improved. Will likely need amputation in the future, however will discuss with patient and his family tomrrow about treatment options. Based on improvement in infection/cellulitis, can wait for now. Nadege Velez DPM
[2017-01-23] MEDS ORDERED: VANCOMYCIN 1,000 MG in DEXTROSE 5%-WATER - 250 ML IVPB SCH (12:45)
--- NOTE | 2017-01-23 12:49 | PN ---
Progress Note, Physician History of Present Illness: cough improving legs improving patient feeling much better podiatry evaluated the patient - Current Medication List Current Medications: Active Medications Acetaminophen (Tylenol -) 650 mg PO Q6H PRN PRN Reason: FEVER OR PAIN Last Admin: 01/22/17 23:00 Dose: 650 mg Albuterol Sulfate (Ventolin 0.5% -) 1 amp NEB Q4H PRN PRN Reason: SHORT OF BREATH/WHEEZING Albuterol/Ipratropium (Duoneb -) 1 amp NEB QIDR [facility] Last Admin: 01/23/17 11:05 Dose: 1 amp Aspirin (Ecotrin -) 81 mg PO DAILY [facility] Last Admin: 01/23/17 09:40 Dose: 81 mg Atorvastatin Calcium (Lipitor -) 40 mg PO HS [facility] Last Admin: 01/22/17 22:58 Dose: 40 mg Clopidogrel Bisulfate (Plavix -) 75 mg PO DAILY [facility] Last Admin: 01/23/17 09:40 Dose: 75 mg Docusate Sodium (Colace -) 100 mg PO BID [facility] Last Admin: 01/23/17 09:41 Dose: 100 mg Furosemide (Lasix -) 40 mg PO DAILY [facility] Guaifenesin (Mucinex -) 1,200 mg PO BID [facility] Last Admin: 01/23/17 09:40 Dose: 1,200 mg Heparin Sodium (Porcine) (Heparin -) 5,000 unit SQ TID [facility] Last Admin: 01/23/17 06:51 Dose: 5,000 unit Vancomycin HCl 1,000 mg/ (Dextrose) 250 mls @ 250 mls/hr IVPB Q48H [facility] PRN Reason: Protocol Insulin Aspart (Novolog Vial Sliding Scale -) 1 vial SQ ACHS [facility] PRN Reason: Protocol Last Admin: 01/23/17 12:18 Dose: Not Given Insulin Detemir (Levemir Vial) 30 units SQ HS [facility] Last Admin: 01/22/17 23:01 Dose: 30 unit Insulin Detemir (Levemir Vial) 45 units SQ AM [facility] Last Admin: 01/23/17 06:51 Dose: 45 unit Lactobacillus Acidophilus (Bacid -) 1 tab PO DAILY [facility] Last Admin: 01/23/17 09:39 Dose: 1 tab Lorazepam (Ativan -) 0.5 mg PO Q8H PRN PRN Reason: AGITATION Last Admin: 01/22/17 22:59 Dose: 0.5 mg Methylprednisolone Sodium Succinate (Solu-Medrol -) 60 mg IVPB Q12H [facility] Last Admin: 01/23/17 11:55 Dose: 60 mg Metoprolol Succinate (Toprol Xl -) 25 mg PO BID [facility] Last Admin: 01/23/17 09:41 Dose: 25 mg Morphine Sulfate (Ms Contin -) 60 mg PO TID [facility] Last Admin: 01/23/17 05:55 Dose: 60 mg Morphine Sulfate (Morphine Injection -) 1 mg IVPUSH Q3H PRN PRN Reason: PAIN Last Admin: 01/23/17 10:44 Dose: 1 mg Nicotine (Nicoderm Patch -) 21 mg TD DAILY [facility] Last Admin: 01/23/17 09:41 Dose: 21 mg Pantoprazole Sodium (Protonix 40mg Ivpb (Pre-Docked)) 40 mg IVPB BID [facility] Last Admin: 01/23/17 10:44 Dose: 40 mg Piperacillin Sod/Tazobactam Sod (Zosyn 3.375gm Ivpb (Pre-Docked)) 3.375 gm IVPB Q8H-IV [facility] PRN Reason: Protocol Last Admin: 01/23/17 09:38 Dose: 3.375 gm Polyethylene Glycol (Miralax (For Daily Use) -) 17 gm PO BID PRN PRN Reason: CONSTIPATION Senna (Senna -) 1 tab PO BID [facility] Last Admin: 01/23/17 09:41 Dose: 1 tab - Objective Vital Signs: Vital Signs Temperature 98 F 01/23/17 06:00 Pulse Rate 64 01/23/17 10:50 Respiratory Rate 20 01/23/17 06:00 Blood Pressure 144/82 01/23/17 06:00 O2 Sat by Pulse Oximetry (%) 94 L 01/23/17 10:50 Constitutional: Yes: No Distress, Calm Cardiovascular: Yes: Regular Rate and Rhythm Respiratory: Yes: Regular, Rhonchi Gastrointestinal: Yes: Normal Bowel Sounds, Soft Musculoskeletal: Yes: Other Extremities: Yes: Erythema, Other Integumentary: Yes: Erythema (improving) Wound/Incision: Yes: Other (non healing ulcer of the leg) Neurological: Yes: Alert, Oriented Psychiatric: Yes: Alert, Oriented Labs: CBC, BMP 01/23/17 06:15 01/23/17 06:15 Assessment/Plan This patient treated couple of days back with cefazolin and flagyl now comes with fulminant infection and in sepsis with gram positive bacteremia i have a strong suspicion that now it might be a resistant organism I dont know how many days he was treated from last infection and how it was done. He has got vanco and zosyn he has very bad kidneys,but he also has severe infection and needs to be covered agree with the patient getting echo also patient leg does not look good and i am worried about deep seated infection Imaging - Results Chest X-ray: Report Reviewed, Image Reviewed Problem List - Problems (1) Sepsis Code(s): A41.9 - SEPSIS, UNSPECIFIED ORGANISM (2) Diabetic foot ulcer Code(s): E11.621 - TYPE 2 DIABETES MELLITUS WITH FOOT ULCER L97.509 - NON-PRESSURE CHRONIC ULCER OTH PRT UNSP FOOT W UNSP SEVERITY (3) Cellulitis of foot Code(s): L03.119 - CELLULITIS OF UNSPECIFIED PART OF LIMB (4) Renal failure (ARF), acute on chronic Code(s): N17.9 - ACUTE KIDNEY FAILURE, UNSPECIFIED N18.9 - CHRONIC KIDNEY DISEASE, UNSPECIFIED (5) CAD (coronary artery disease) Code(s): I25.10 - ATHSCL HEART DISEASE OF [place] CORONARY ARTERY W/O ANG PCTRS Qualifiers: Coronary Disease-Associated Artery/Lesion type: unspecified vessel or lesion type [place] vs. transplanted heart: [place] heart Associated angina: with stable angina Qualified Code(s): I25.119 - Atherosclerotic heart disease of [place] coronary artery with unspecified angina pectoris (6) COPD (chronic obstructive pulmonary disease) Code(s): J44.9 - CHRONIC OBSTRUCTIVE PULMONARY DISEASE, UNSPECIFIED Qualifiers : COPD type: unspecified COPD Qualified Code(s): J44.9 - Chronic obstructive pulmonary disease, unspecified (7) Chronic pain Code(s): G89.29 - OTHER CHRONIC PAIN (8) Diabetes mellitus Code(s): E11.9 - TYPE 2 DIABETES MELLITUS WITHOUT COMPLICATIONS Qualifiers: Diabetes mellitus type: type 1 Diabetes mellitus complication status: with hyperglycemia Qualified Code(s): E10.65 - Type 1 diabetes mellitus with hyperglycemia (9) Hyperlipidemia Code(s): E78.5 - HYPERLIPIDEMIA, UNSPECIFIED (10) Hypertension Code(s): I10 - ESSENTIAL (PRIMARY) HYPERTENSION (11) Tobacco abuse Code(s): Z72.0 - TOBACCO USE mrsa bacteremia back pain resp failure plan continue current mgmt vanco trough noted restarted vanco patient will eed 14 more days of vanco will stop zosyn tomorrow
[2017-01-23] MEDS: VANCOMYCIN 1 GRAM (PRE-DOCKED) 250 ML IVPB SCH (13:46)
[2017-01-23 13:55] LABS: METAMYELOCYTE 3 % (0-2); PLATELET ESTIMATE ADEQUATE (NORMAL)
[2017-01-23 13:56] LABS: ANISOCYTOSIS 1+
--- NOTE | 2017-01-23 13:59 | PN ---
Progress Note, HOME COMPANION - Note Progress Note: Patient seen at bedside for swallowing re-assessment. Awake and alert. VSS. CXR 01/21/17 reports decreased congestion, better aeration, persistent cardiomegaly. Voice is clear. Volitional cough is +. Patient reports coughing up occasional pinkish-purplish phlegm, this was not observed during assessment. Patient tolerated trial of thin liquids, purees and chewable solids without any overt signs of aspiration. Rx: Continue regular solid diet with thin liquids as tolerated. Aspiration precautions. Monitor nutritional and pulmoary status. Suggest chest PT. HOME COMPANION discussed with Torrie Giles RN, on unit.
--- NOTE | 2017-01-23 15:50 | PN ---
Progress Note, Physician Chief Complaint: Mr Scott says he is feeling well. Is not having shortness of breath. Says his pain is currently controlled. No cp or n/v. Asking when he can go home. - Current Medication List Current Medications: Active Medications Acetaminophen (Tylenol -) 650 mg PO Q6H PRN PRN Reason: FEVER OR PAIN Last Admin: 01/22/17 23:00 Dose: 650 mg Albuterol Sulfate (Ventolin 0.5% -) 1 amp NEB Q4H PRN PRN Reason: SHORT OF BREATH/WHEEZING Albuterol/Ipratropium (Duoneb -) 1 amp NEB QIDR [facility] Last Admin: 01/23/17 11:05 Dose: 1 amp Aspirin (Ecotrin -) 81 mg PO DAILY [facility] Last Admin: 01/23/17 09:40 Dose: 81 mg Atorvastatin Calcium (Lipitor -) 40 mg PO HS [facility] Last Admin: 01/22/17 22:58 Dose: 40 mg Clopidogrel Bisulfate (Plavix -) 75 mg PO DAILY [facility] Last Admin: 01/23/17 09:40 Dose: 75 mg Docusate Sodium (Colace -) 100 mg PO BID [facility] Last Admin: 01/23/17 09:41 Dose: 100 mg Furosemide (Lasix -) 40 mg PO DAILY [facility] Guaifenesin (Mucinex -) 1,200 mg PO BID [facility] Last Admin: 01/23/17 09:40 Dose: 1,200 mg Heparin Sodium (Porcine) (Heparin -) 5,000 unit SQ TID [facility] Last Admin: 01/23/17 15:26 Dose: 5,000 unit Vancomycin HCl (Vancomycin (Pre-Docked)) 250 mls @ 250 mls/hr IVPB DAILY@1300 [facility] PRN Reason: Protocol Last Admin: 01/23/17 13:46 Dose: 250 mls/hr Insulin Aspart (Novolog Vial Sliding Scale -) 1 vial SQ ACHS [facility] PRN Reason: Protocol Last Admin: 01/23/17 12:18 Dose: Not Given Insulin Detemir (Levemir Vial) 30 units SQ HS [facility] Last Admin: 01/22/17 23:01 Dose: 30 unit Insulin Detemir (Levemir Vial) 45 units SQ AM [facility] Last Admin: 01/23/17 06:51 Dose: 45 unit Lactobacillus Acidophilus (Bacid -) 1 tab PO DAILY [facility] Last Admin: 01/23/17 09:39 Dose: 1 tab Lorazepam (Ativan -) 0.5 mg PO Q8H PRN PRN Reason: AGITATION Last Admin: 01/22/17 22:59 Dose: 0.5 mg Methylprednisolone Sodium Succinate (Solu-Medrol -) 60 mg IVPB Q12H [facility] Last Admin: 01/23/17 11:55 Dose: 60 mg Metoprolol Succinate (Toprol Xl -) 25 mg PO BID [facility] Last Admin: 01/23/17 09:41 Dose: 25 mg Morphine Sulfate (Ms Contin -) 60 mg PO TID [facility] Last Admin: 01/23/17 13:46 Dose: 60 mg Morphine Sulfate (Morphine Injection -) 1 mg IVPUSH Q3H PRN PRN Reason: PAIN Last Admin: 01/23/17 15:27 Dose: 1 mg Nicotine (Nicoderm Patch -) 21 mg TD DAILY [facility] Last Admin: 01/23/17 09:41 Dose: 21 mg Pantoprazole Sodium (Protonix 40mg Ivpb (Pre-Docked)) 40 mg IVPB BID [facility] Last Admin: 01/23/17 10:44 Dose: 40 mg Piperacillin Sod/Tazobactam Sod (Zosyn 3.375gm Ivpb (Pre-Docked)) 3.375 gm IVPB Q8H-IV [facility] PRN Reason: Protocol Last Admin: 01/23/17 09:38 Dose: 3.375 gm Polyethylene Glycol (Miralax (For Daily Use) -) 17 gm PO BID PRN PRN Reason: CONSTIPATION Senna (Senna -) 1 tab PO BID [facility] Last Admin: 01/23/17 09:41 Dose: 1 tab - Objective Vital Signs: Vital Signs Temperature 97.9 F 01/23/17 13:53 Pulse Rate 69 01/23/17 13:53 Respiratory Rate 20 01/23/17 13:53 Blood Pressure 166/80 01/23/17 13:53 O2 Sat by Pulse Oximetry (%) 94 L 01/23/17 10:50 Constitutional: Yes: Well Nourished, No Distress, Calm Cardiovascular: Yes: Regular Rate and Rhythm. No: Gallop, Murmur, Rub Respiratory: Yes: Regular, CTA Bilaterally. No: Rales, Rhonchi, Wheezes Gastrointestinal: Yes: Normal Bowel Sounds. No: Distention, Tenderness Extremities: Yes: Erythema, Other (ulceration) Edema: No Labs: CBC, BMP 01/23/17 06:15 01/23/17 06:15 Problem List - Problems (1) Acute respiratory failure Code(s): J96.00 - ACUTE RESPIRATORY FAILURE, UNSP W HYPOXIA OR HYPERCAPNIA (2) Sepsis Code(s): A41.9 - SEPSIS, UNSPECIFIED ORGANISM (3) Diabetic foot ulcer Code(s): E11.621 - TYPE 2 DIABETES MELLITUS WITH FOOT ULCER L97.509 - NON-PRESSURE CHRONIC ULCER OTH PRT UNSP FOOT W UNSP SEVERITY (4) Cellulitis of foot Code(s): L03.119 - CELLULITIS OF UNSPECIFIED PART OF LIMB (5) Renal failure (ARF), acute on chronic Code(s): N17.9 - ACUTE KIDNEY FAILURE, UNSPECIFIED N18.9 - CHRONIC KIDNEY DISEASE, UNSPECIFIED (6) CAD (coronary artery disease) Code(s): I25.10 - ATHSCL HEART DISEASE OF [place] CORONARY ARTERY W/O ANG PCTRS Qualifiers: Coronary Disease-Associated Artery/Lesion type: unspecified vessel or lesion type [place] vs. transplanted heart: [place] heart Associated angina: with stable angina Qualified Code(s): I25.118 - Atherosclerotic heart disease of [place] coronary artery with other forms of angina pectoris (7) COPD (chronic obstructive pulmonary disease) Code(s): J44.9 - CHRONIC OBSTRUCTIVE PULMONARY DISEASE, UNSPECIFIED Qualifiers : COPD type: unspecified COPD Qualified Code(s): J44.9 - Chronic obstructive pulmonary disease, unspecified (8) Chronic pain Code(s): G89.29 - OTHER CHRONIC PAIN (9) Diabetes mellitus Code(s): E11.9 - TYPE 2 DIABETES MELLITUS WITHOUT COMPLICATIONS Qualifiers: Diabetes mellitus type: type 1 Diabetes mellitus complication status: with hyperglycemia Qualified Code(s): E10.65 - Type 1 diabetes mellitus with hyperglycemia (10) Hyperlipidemia Code(s): E78.5 - HYPERLIPIDEMIA, UNSPECIFIED (11) Hypertension Code(s): I10 - ESSENTIAL (PRIMARY) HYPERTENSION (12) Tobacco abuse Code(s): Z72.0 - TOBACCO USE Assessment/Plan (1) Sepsis Assessment/Plan: -continue vancomycin and zosyn -still with leukocytosis but improving -ID following Code(s): A41.9 - SEPSIS, UNSPECIFIED ORGANISM (2) Diabetic foot ulcer Assessment/Plan: -continue vancomycin and zosyn -podiatry following and will discuss amputation and options with patient tomorrow -ID to decide duration of antibiotics Code(s): E11.621 - TYPE 2 DIABETES MELLITUS WITH FOOT ULCER L97.509 - NON-PRESSURE CHRONIC ULCER OTH PRT UNSP FOOT W UNSP SEVERITY (3) Cellulitis of foot Assessment/Plan: -as above Code(s): L03.119 - CELLULITIS OF UNSPECIFIED PART OF LIMB (4) Renal failure (ARF), acute on chronic Assessment/Plan: -s/p hydration -at baseline Code(s): N17.9 - ACUTE KIDNEY FAILURE, UNSPECIFIED N18.9 - CHRONIC KIDNEY DISEASE, UNSPECIFIED (5) CAD (coronary artery disease) Assessment/Plan: -continue aspirin and plavix -continue metoprolol -continue lipitor -quiescent, cardiology following Code(s): I25.10 - ATHSCL HEART DISEASE OF [place] CORONARY ARTERY W/O ANG PCTRS Qualifiers: Coronary Disease-Associated Artery/Lesion type: unspecified vessel or lesion type [place] vs. transplanted heart: [place] heart Associated angina: with stable angina Qualified Code(s): I25.119 - Atherosclerotic heart disease of [place] coronary artery with unspecified angina pectoris (6) COPD (chronic obstructive pulmonary disease) Assessment/Plan: -much improved -pulmonary following -defer titration of solumedrol to pulmonary -continue bronchodilators Code(s): J44.9 - CHRONIC OBSTRUCTIVE PULMONARY DISEASE, UNSPECIFIED Qualifiers : COPD type: unspecified COPD Qualified Code(s): J44.9 - Chronic obstructive pulmonary disease, unspecified (7) Chronic pain Assessment/Plan: -continue current regimen Code(s): G89.29 - OTHER CHRONIC PAIN (8) Diabetes mellitus Assessment/Plan: -appreciate endocrinology assistance -continue levemir with SSI -may need decrease as steroids decrease Code(s): E11.9 - TYPE 2 DIABETES MELLITUS WITHOUT COMPLICATIONS Qualifiers: Diabetes mellitus type: type 1 Diabetes mellitus complication status: with hyperglycemia Qualified Code(s): E10.65 - Type 1 diabetes mellitus with hyperglycemia (9) Hyperlipidemia Assessment/Plan: -continue statin Code(s): E78.5 - HYPERLIPIDEMIA, UNSPECIFIED (10) Hypertension Assessment/Plan: -continue hydralazine and metoprolol -monitor Code(s): I10 - ESSENTIAL (PRIMARY) HYPERTENSION (11) Tobacco abuse Assessment/Plan: -nicotine patch Code(s): Z72.0 - TOBACCO USE
[2017-01-23] MEDS ORDERED: INSULIN (NOVOLOG) ASPART 100 UNITS/ML 10ML VIAL ONE (19:20)
[2017-01-23] MEDS: ATORVASTATIN CA 40 MG TABLET (FP) PO SCH (22:28)
[2017-01-23] MEDS: LORazepam 0.5 MG TABLET PO PRN (22:32)
[2017-01-24] MEDS: ALBUTEROL SO4 2.5/IPRATROPIUM 0.5 INH SOL 3 ML VIAL.NEB. NEB SCH ×4 (00:10→17:15)
[2017-01-24] MEDS: morphine CARPU-JECT 2 MG/1 ML DISP.SYRIN IVPUSH PRN ×4 (01:30→21:41)
[2017-01-24] MEDS: PIPERACILLIN/TAZOB 3.375 GM/50 ML PRE-DOCKED IVPB SCH ×2 (01:31→10:23)
[2017-01-24] MEDS: ACETAMINOPHEN 325 MG TABLET (FP) PO PRN (02:27)
[2017-01-24] MEDS: HEPARIN NA (PORCINE) 5,000 UNITS/ML 1ML VIAL SQ SCH ×3 (06:11→21:37)
[2017-01-24] MEDS: morphine SO4 SUSTAINED ACTING 30 MG TABLET.SA PO SCH ×3 (06:11→23:02)
[2017-01-24] MEDS: INSULIN DETEMIR 100 UNITS/ML MDV SQ SCH ×2 (06:37→21:54)
[2017-01-24] MEDS: INSULIN SLIDING SCALE (NOVOLOG) 1 VIAL SQ SCH ×4 (06:37→21:51)
[2017-01-24 07:31] LABS: MCH 29.3 pg (25.7-33.7); MCHC 32.9 g/dl (32.0-35.9); MEAN CELL VOLUME 89.1 fl (80-96); PLATELET COUNT 429 K/MM3 (134-434); RDW 15.4 % (11.9-15.9); WHITE BLOOD COUNT 29.7 K/mm3 (4.0-10.0)
[2017-01-24 08:29] LABS: CALCIUM 8.1 mg/dL (8.5-10.1); CREATININE 1.3 mg/dL (0.7-1.3); MAGNESIUM 1.7 mg/dL (1.8-2.4); PHOSPHOROUS 3.1 mg/dL (2.5-4.9)
[2017-01-24 09:26] LABS: PLATELET ESTIMATE ADEQUATE (NORMAL)
[2017-01-24] MEDS ORDERED: INSULIN (NOVOLOG) ASPART 100 UNITS/ML 10ML VIAL ONE (10:15)
[2017-01-24] MEDS: PANTOPRAZOLE SODIUM 40 MG/100 ML PRE-DOCKED IVPB SCH ×2 (10:23→21:44)
[2017-01-24] MEDS: METOPROLOL SUCCINATE 25 MG TAB.SR.24H (FP) PO SCH ×2 (10:24→21:37)
[2017-01-24] MEDS: FUROSEMIDE 40 MG TABLET (FP) PO SCH (10:24)
[2017-01-24] MEDS: CLOPIDOGREL BISULFATE 75 MG TABLET (FP) PO SCH (10:24)
[2017-01-24] MEDS: LACTOBACILLUS ACIDOPHILUS 1 EACH TAB (FP) PO SCH (10:24)
[2017-01-24] MEDS: DOCUSATE SODIUM 100 MG CAPSULE (FP) PO SCH ×2 (10:25→21:37)
[2017-01-24] MEDS: ASPIRIN COATED 81 MG TABLET.EC PO SCH (10:26)
[2017-01-24] MEDS: NICOTINE 21 MG/24 HOURS TOPICAL PATCH TD SCH (10:26)
[2017-01-24] MEDS: guaiFENesin 600 MG TABLET.ER (FP) PO SCH ×2 (10:26→21:38)
[2017-01-24] MEDS: SENNOSIDES 8.6MG TABLET (FP) PO SCH ×2 (10:27→21:37)
[2017-01-24] MEDS: methylPREDNISolone NA SUCC 40 MG/1 ML VIAL IVPB SCH (10:39)
--- NOTE | 2017-01-24 10:42 | PN ---
Progress Note (short form) - Note Progress Note: PULMONARY States breathing continues to improve. Still some cough and wheezing. No fevers or chills. Wants to go home. Last Vital Signs Temp Pulse Resp BP Pulse Ox 97.4 F L 66 20 146/79 97 01/24/17 06:00 01/24/17 06:00 01/24/17 06:00 01/24/17 06:00 01/23/17 21:00 Gen: less tachypneic Heart: RRR Lung: bilateral rhonchi, wheezes but less Abd: soft, nontender Ext: no edema, areas of toe dry necrosis CBC, BMP 01/24/17 06:00 01/24/17 06:00 Active Medications Acetaminophen (Tylenol -) 650 mg PO Q6H PRN PRN Reason: FEVER OR PAIN Last Admin: 01/24/17 02:27 Dose: 650 mg Albuterol Sulfate (Ventolin 0.5% -) 1 amp NEB Q4H PRN PRN Reason: SHORT OF BREATH/WHEEZING Albuterol/Ipratropium (Duoneb -) 1 amp NEB QIDR [facility] Last Admin: 01/24/17 06:15 Dose: 1 amp Aspirin (Ecotrin -) 81 mg PO DAILY [facility] Last Admin: 01/24/17 10:26 Dose: 81 mg Atorvastatin Calcium (Lipitor -) 40 mg PO HS [facility] Last Admin: 01/23/17 22:28 Dose: 40 mg Clopidogrel Bisulfate (Plavix -) 75 mg PO DAILY [facility] Last Admin: 01/24/17 10:24 Dose: 75 mg Docusate Sodium (Colace -) 100 mg PO BID [facility] Last Admin: 01/24/17 10:25 Dose: 100 mg Furosemide (Lasix -) 40 mg PO DAILY [facility] Last Admin: 01/24/17 10:24 Dose: 40 mg Guaifenesin (Mucinex -) 1,200 mg PO BID [facility] Last Admin: 01/24/17 10:26 Dose: 1,200 mg Heparin Sodium (Porcine) (Heparin -) 5,000 unit SQ TID [facility] Last Admin: 01/24/17 06:11 Dose: 5,000 unit Vancomycin HCl (Vancomycin (Pre-Docked)) 250 mls @ 250 mls/hr IVPB DAILY@1300 [facility] PRN Reason: Protocol Last Admin: 01/23/17 13:46 Dose: 250 mls/hr Insulin Aspart (Novolog Vial Sliding Scale -) 1 vial SQ ACHS [facility] PRN Reason: Protocol Last Admin: 01/24/17 06:37 Dose: 4 units Insulin Detemir (Levemir Vial) 30 units SQ HS [facility] Last Admin: 01/23/17 22:29 Dose: 30 unit Insulin Detemir (Levemir Vial) 45 units SQ AM [facility] Last Admin: 01/24/17 06:37 Dose: 45 unit Lactobacillus Acidophilus (Bacid -) 1 tab PO DAILY [facility] Last Admin: 01/24/17 10:24 Dose: 1 tab Lorazepam (Ativan -) 0.5 mg PO Q8H PRN PRN Reason: AGITATION Last Admin: 01/23/17 22:32 Dose: 0.5 mg Methylprednisolone Sodium Succinate (Solu-Medrol -) 60 mg IVPB Q12H [facility] Last Admin: 01/24/17 10:39 Dose: 60 mg Metoprolol Succinate (Toprol Xl -) 25 mg PO BID [facility] Last Admin: 01/24/17 10:24 Dose: 25 mg Morphine Sulfate (Ms Contin -) 60 mg PO TID [facility] Last Admin: 01/24/17 06:11 Dose: 60 mg Morphine Sulfate (Morphine Injection -) 1 mg IVPUSH Q3H PRN PRN Reason: PAIN Last Admin: 01/24/17 01:30 Dose: 1 mg Nicotine (Nicoderm Patch -) 21 mg TD DAILY [facility] Last Admin: 01/24/17 10:26 Dose: 21 mg Pantoprazole Sodium (Protonix 40mg Ivpb (Pre-Docked)) 40 mg IVPB BID [facility] Last Admin: 01/24/17 10:23 Dose: 40 mg Piperacillin Sod/Tazobactam Sod (Zosyn 3.375gm Ivpb (Pre-Docked)) 3.375 gm IVPB Q8H-IV [facility] PRN Reason: Protocol Last Admin: 01/24/17 10:23 Dose: 3.375 gm Polyethylene Glycol (Miralax (For Daily Use) -) 17 gm PO BID PRN PRN Reason: CONSTIPATION Senna (Senna -) 1 tab PO BID [facility] Last Admin: 01/24/17 10:27 Dose: 1 tab A/P Acute Hypoxic Respiratory Failure improved MRSA Bacteremia Cellulitis r/o Osteomyelitis Severe Sepsis Lactic Acidosis Acute on Chronic Renal Failure Acute COPD Exacerbation CAD s/p stents PAD DM Smoker - continue lasix - monitor urine output, creatinine - continue antibiotics per ID - wound care - taper FiO2 to keep SpO2 >90% - will decrease medrol to 40mg q12 today, if continues to improve can change to prednisone 40mg daily in AM - inhaled bronchodilators - ASA, plavix - DVT prophylaxis
[2017-01-24] MEDS: VANCOMYCIN 1 GRAM (PRE-DOCKED) 250 ML IVPB SCH (12:38)
--- NOTE | 2017-01-24 13:25 | PN ---
Progress Note (short form) - Note Progress Note: Chief Complaint: chf History of Present Illness: denies sob, cp, palpit, leg swelling. transitioned to po lasix today. wants to go home. Current Medications Acetaminophen (Tylenol -) 650 mg PO Q6H PRN PRN Reason: FEVER OR PAIN Last Admin: 01/24/17 02:27 Dose: 650 mg Albuterol Sulfate (Ventolin 0.5% -) 1 amp NEB Q4H PRN PRN Reason: SHORT OF BREATH/WHEEZING Albuterol/Ipratropium (Duoneb -) 1 amp NEB QIDR [facility] Last Admin: 01/24/17 11:12 Dose: 1 amp Aspirin (Ecotrin -) 81 mg PO DAILY [facility] Last Admin: 01/24/17 10:26 Dose: 81 mg Atorvastatin Calcium (Lipitor -) 40 mg PO HS [facility] Last Admin: 01/23/17 22:28 Dose: 40 mg Clopidogrel Bisulfate (Plavix -) 75 mg PO DAILY [facility] Last Admin: 01/24/17 10:24 Dose: 75 mg Docusate Sodium (Colace -) 100 mg PO BID [facility] Last Admin: 01/24/17 10:25 Dose: 100 mg Furosemide (Lasix -) 40 mg PO DAILY [facility] Last Admin: 01/24/17 10:24 Dose: 40 mg Guaifenesin (Mucinex -) 1,200 mg PO BID [facility] Last Admin: 01/24/17 10:26 Dose: 1,200 mg Heparin Sodium (Porcine) (Heparin -) 5,000 unit SQ TID [facility] Last Admin: 01/24/17 06:11 Dose: 5,000 unit Vancomycin HCl (Vancomycin (Pre-Docked)) 250 mls @ 250 mls/hr IVPB DAILY@1300 [facility] PRN Reason: Protocol Last Admin: 01/24/17 12:38 Dose: 250 mls/hr Insulin Aspart (Novolog Vial Sliding Scale -) 1 vial SQ ACHS [facility] PRN Reason: Protocol Last Admin: 01/24/17 11:11 Dose: Not Given Insulin Detemir (Levemir Vial) 30 units SQ HS [facility] Last Admin: 01/23/17 22:29 Dose: 30 unit Insulin Detemir (Levemir Vial) 45 units SQ AM [facility] Last Admin: 01/24/17 06:37 Dose: 45 unit Lactobacillus Acidophilus (Bacid -) 1 tab PO DAILY [facility] Last Admin: 01/24/17 10:24 Dose: 1 tab Lorazepam (Ativan -) 0.5 mg PO Q8H PRN PRN Reason: AGITATION Last Admin: 01/23/17 22:32 Dose: 0.5 mg Methylprednisolone Sodium Succinate (Solu-Medrol -) 40 mg IVPB BID [facility] Metoprolol Succinate (Toprol Xl -) 25 mg PO BID [facility] Last Admin: 01/24/17 10:24 Dose: 25 mg Morphine Sulfate (Ms Contin -) 60 mg PO TID [facility] Last Admin: 01/24/17 06:11 Dose: 60 mg Morphine Sulfate (Morphine Injection -) 1 mg IVPUSH Q3H PRN PRN Reason: PAIN Last Admin: 01/24/17 12:39 Dose: 1 mg Nicotine (Nicoderm Patch -) 21 mg TD DAILY [facility] Last Admin: 01/24/17 10:26 Dose: 21 mg Pantoprazole Sodium (Protonix 40mg Ivpb (Pre-Docked)) 40 mg IVPB BID [facility] Last Admin: 01/24/17 10:23 Dose: 40 mg Piperacillin Sod/Tazobactam Sod (Zosyn 3.375gm Ivpb (Pre-Docked)) 3.375 gm IVPB Q8H-IV [facility] PRN Reason: Protocol Last Admin: 01/24/17 10:23 Dose: 3.375 gm Polyethylene Glycol (Miralax (For Daily Use) -) 17 gm PO BID PRN PRN Reason: CONSTIPATION Senna (Senna -) 1 tab PO BID [facility] Last Admin: 01/24/17 10:27 Dose: 1 tab Vital Signs - 24 hr 01/23/17 01/23/17 01/23/17 13:53 18:00 21:00 Temperature 97.9 F 98.2 F Pulse Rate 69 74 Respiratory 20 20 20 Rate Blood Pressure 166/80 173/71 O2 Sat by Pulse 96 97 Oximetry (%) 01/23/17 01/24/17 01/24/17 22:00 02:00 06:00 Temperature 98.3 F 98.1 F 97.4 F L Pulse Rate 75 70 66 Respiratory 20 20 20 Rate Blood Pressure 122/53 159/79 146/79 O2 Sat by Pulse Oximetry (%) 01/24/17 11:12 Temperature Pulse Rate 61 Respiratory Rate Blood Pressure O2 Sat by Pulse 96 Oximetry (%) Intake & Output 01/22/17 01/23/17 01/24/17 01/25/17 07:59 07:59 07:59 07:59 Intake Total 1680 2250 1190 Output Total 0 4450 2500 Balance -370 -2200 -1310 Weight 193 lb 11.2 oz 191 lb 12.8 oz 189 lb 4.8 oz Constitutional: Yes: Well Nourished, No Distress, Calm Cardiovascular: Yes: Regular Rate and Rhythm, S1, S2. No: JVD, Gallop, Murmur Respiratory: Yes: Regular, bibasilar rales. No: Accessory Muscle Use, Wheezes Extremities: No: Cold Edema: trace Neurological: Yes: Alert, Oriented Psychiatric: No: Agitated Labs: CBC, BMP 01/24/17 06:00 01/24/17 06:00 Assessment/Plan Echo 2014: mod global HK (TDS for rwma); RV tds; trace AI; no RVSP Echo 12/2016: TDS; LVSF is "at least mildly reduced: RWM assessment tds; nl RV; nl LA; mild MR/TR; no veg seen STAT repeat Echo 01/17/17--images reviewed by Dr. Mckeon: no vegetation seen; redundant, highly mobile anterior chorda to anterior MV leaflet--cannot definitively exclude vegetation attached to chord though not highly suspicious. no AV or TV vege seen. no MR/TR/AI. EF mod-severely decr'd, ? global (cannot accurately assess for RWMAs)--suspect EF is 35-40%. RV normal size, fxn not well visualized. acute hypoxic/hypercapneic resp failure, acute syst chf/isch CMP, ? PNA ( infiltrate on CXR), ? a.e. copd: - CXR c/w chf (vascular redistribution, interstitial edema) - no valve dysfunction on rpt echo - etiol of chf is likely mod-severe LV systolic dysfunction with IV hydration contributing; ? sepsis causing some transient myocardial dysfunction as well - s/p lasix 60 ivp x 1 01/17--CXR signif improved as of am 01/18 - CXR 01/18 pm thru 01/20 has been slightly worsened, though overall improved vs day of acute resp failure on 01/17 - CVP was low in ICU, was getting gentle ivf--fluids now off - 01/21 cxr continues to show bibasilar infiltrates and R mid-lung infiltrate, incr'd vs admit and vs prior 12/16; no sob; lasix 40 ivp x 1 given - 01/22: bun/creat continuing to improve; will give another dose lasix 40 ivp x 1 today - 01/23-01/24: cxr reviewed--improving in R mid lung and L lower; renal fxn stable --rpt lasix 40 iv x 1 today, start 40mg po daily tomorrow -should have outpt cardio f/u within 2 wks to monitor chf status--says he last saw prior cardio (erick) years ago--advised importance of cardio f/u to monitor chf status, lasix effect/lytes and creat, and also to monitor his heart and make sure no infection present--he says he prefers to only f/u with dr gale -informed dr gale of plan re: lasix and f/u echo in office 4 wks. check weights after po lasix to make sure diuresing well. still remains slightly volume up. -steroids, abx per pulm -was on toprol 50 qd at home; bp stable--changed to toprol 25 bid (syst chf dose regimen) -not being treated with WENDY by outpt cardio--? due to labile creats (to 3 at times in past here). start low dose hydralazine 10 mg bid, uptitration as outpatient MRSA Bacteremia/Sepsis: -Source likely non-healing ulcer -Echo x 2 here no definite vegetation (cannot definitively exclude veg on anterior MV chorda though more likely due to redundant chord); no valve dysfunction -repeat BCx's neg to date -d/w'd dr cristobal--his clinical suspicion for SBE is low, likely source of MRSA bacteremia is diabetic leg wound; -will defer LETICIA, as the aforementioned echo finding is highly likely to represent highly redundant chorda vibrations (i.e. non-pathological). -will repeat echo as outpatient in 4 wks to rule out developing veg on chorda CAD: -follows with dr roddy suarez cardio -s/p PCI (LIBBY) to 100% occl RPDA in 2004 ([facility]) with patent prior RCA stents at that time, EF 50% then; -s/p anterior STEMI 2011 with [place] LIBBY x 2 to mid LAD then (ten[place]); residual dz then included 80% prox D1 (large vessel), 95% mD1; 70%mRCA (pre and post prior stents); 40% RPDA; 60% pCFX; 40% mCFX; 70% dCFX; EF then 37% with AK of apex/AL lindsey and AK of IW; -trop 0.3 at time of acute chf 01/17-->0.2-->0.1 -ecg on day of acute chf with worsening of baseline ST-Ts anterior leads -above enzymes/ecg findings are all c/w acute chf/increased LV wall tension, though cannot definitively exclude a component of acute ischemia -given rapid improvement with diuresis and no anginal CP, will defer further ischemia w/u here if remains without unstable angina/ACS findings--pt will f/u with dr suarez cardio/PCP after discharge -continue lipitor, ASA, BB, plavix (on this for cva secondary prevention) VTach: -runs of NSVT at times here -EF possibly mild decreased on echo -01/18 EKG with prolongation of qt interval in addition to frequent pvc's. --> K/ Mag > 2/4 per usual, cont bb as doing, monitor tele. Will d/c zofran. -01/19-: tele unremarkable arf on ckd: -improving -s/pIVF tx of sepsis per crit care HTN: -per home med list, pt on toprol 50 and hydral 10 bid at home - off pressors, metoprolol resumed. Bradycardia - ? mobitz I vs II while sleeping on tele here previously--likely physiologic sec to hi vagal tone - tele with no bradyarrhtyhmias during this admit - no contraindication to b-blockers (has tolerated at home without dizzy/ syncope spells) h/o CVA: -dx'd lacunar infarct 02/10 clinically then (slurred speech) -? acute CVA/TIA 11/13, seen by neuro then--ASA added to prior plavix, remains on DAPT
--- NOTE | 2017-01-24 13:46 | PN ---
Progress Note, Physician History of Present Illness: doing well no complaints - Current Medication List Current Medications: Active Medications Acetaminophen (Tylenol -) 650 mg PO Q6H PRN PRN Reason: FEVER OR PAIN Last Admin: 01/24/17 02:27 Dose: 650 mg Albuterol Sulfate (Ventolin 0.5% -) 1 amp NEB Q4H PRN PRN Reason: SHORT OF BREATH/WHEEZING Albuterol/Ipratropium (Duoneb -) 1 amp NEB QIDR [facility] Last Admin: 01/24/17 11:12 Dose: 1 amp Aspirin (Ecotrin -) 81 mg PO DAILY [facility] Last Admin: 01/24/17 10:26 Dose: 81 mg Atorvastatin Calcium (Lipitor -) 40 mg PO HS [facility] Last Admin: 01/23/17 22:28 Dose: 40 mg Clopidogrel Bisulfate (Plavix -) 75 mg PO DAILY [facility] Last Admin: 01/24/17 10:24 Dose: 75 mg Docusate Sodium (Colace -) 100 mg PO BID [facility] Last Admin: 01/24/17 10:25 Dose: 100 mg Furosemide (Lasix -) 40 mg PO DAILY [facility] Last Admin: 01/24/17 10:24 Dose: 40 mg Guaifenesin (Mucinex -) 1,200 mg PO BID [facility] Last Admin: 01/24/17 10:26 Dose: 1,200 mg Heparin Sodium (Porcine) (Heparin -) 5,000 unit SQ TID [facility] Last Admin: 01/24/17 06:11 Dose: 5,000 unit Vancomycin HCl (Vancomycin (Pre-Docked)) 250 mls @ 250 mls/hr IVPB DAILY@1300 [facility] PRN Reason: Protocol Last Admin: 01/24/17 12:38 Dose: 250 mls/hr Insulin Aspart (Novolog Vial Sliding Scale -) 1 vial SQ ACHS [facility] PRN Reason: Protocol Last Admin: 01/24/17 11:11 Dose: Not Given Insulin Detemir (Levemir Vial) 30 units SQ HS [facility] Last Admin: 01/23/17 22:29 Dose: 30 unit Insulin Detemir (Levemir Vial) 45 units SQ AM [facility] Last Admin: 01/24/17 06:37 Dose: 45 unit Lactobacillus Acidophilus (Bacid -) 1 tab PO DAILY [facility] Last Admin: 01/24/17 10:24 Dose: 1 tab Lorazepam (Ativan -) 0.5 mg PO Q8H PRN PRN Reason: AGITATION Last Admin: 01/23/17 22:32 Dose: 0.5 mg Methylprednisolone Sodium Succinate (Solu-Medrol -) 40 mg IVPB BID [facility] Metoprolol Succinate (Toprol Xl -) 25 mg PO BID [facility] Last Admin: 01/24/17 10:24 Dose: 25 mg Morphine Sulfate (Ms Contin -) 60 mg PO TID [facility] Last Admin: 01/24/17 06:11 Dose: 60 mg Morphine Sulfate (Morphine Injection -) 1 mg IVPUSH Q3H PRN PRN Reason: PAIN Last Admin: 01/24/17 12:39 Dose: 1 mg Nicotine (Nicoderm Patch -) 21 mg TD DAILY [facility] Last Admin: 01/24/17 10:26 Dose: 21 mg Pantoprazole Sodium (Protonix 40mg Ivpb (Pre-Docked)) 40 mg IVPB BID [facility] Last Admin: 01/24/17 10:23 Dose: 40 mg Piperacillin Sod/Tazobactam Sod (Zosyn 3.375gm Ivpb (Pre-Docked)) 3.375 gm IVPB Q8H-IV [facility] PRN Reason: Protocol Last Admin: 01/24/17 10:23 Dose: 3.375 gm Polyethylene Glycol (Miralax (For Daily Use) -) 17 gm PO BID PRN PRN Reason: CONSTIPATION Senna (Senna -) 1 tab PO BID [facility] Last Admin: 01/24/17 10:27 Dose: 1 tab - Objective Vital Signs: Vital Signs Temperature 97.4 F L 01/24/17 06:00 Pulse Rate 61 01/24/17 11:12 Respiratory Rate 20 01/24/17 06:00 Blood Pressure 146/79 01/24/17 06:00 O2 Sat by Pulse Oximetry (%) 96 01/24/17 11:12 Constitutional: Yes: No Distress, Calm Cardiovascular: Yes: Regular Rate and Rhythm, S1, S2, Other Respiratory: Yes: Regular, On Nasal O2, Poor Air Entry, Rhonchi Gastrointestinal: Yes: Normal Bowel Sounds, Soft Musculoskeletal: Yes: Other Extremities: Yes: Other Wound/Incision: Yes: Open to air Neurological: Yes: Alert, Oriented Psychiatric: Yes: Alert, Oriented Labs: CBC, BMP 01/24/17 06:00 01/24/17 06:00 Assessment/Plan This patient treated couple of days back with cefazolin and flagyl now comes with fulminant infection and in sepsis with gram positive bacteremia i have a strong suspicion that now it might be a resistant organism I dont know how many days he was treated from last infection and how it was done. He has got vanco and zosyn he has very bad kidneys,but he also has severe infection and needs to be covered agree with the patient getting echo also patient leg does not look good and i am worried about deep seated infection Imaging - Results Chest X-ray: Report Reviewed, Image Reviewed Problem List - Problems (1) Sepsis Code(s): A41.9 - SEPSIS, UNSPECIFIED ORGANISM (2) Diabetic foot ulcer Code(s): E11.621 - TYPE 2 DIABETES MELLITUS WITH FOOT ULCER L97.509 - NON-PRESSURE CHRONIC ULCER OTH PRT UNSP FOOT W UNSP SEVERITY (3) Cellulitis of foot Code(s): L03.119 - CELLULITIS OF UNSPECIFIED PART OF LIMB (4) Renal failure (ARF), acute on chronic Code(s): N17.9 - ACUTE KIDNEY FAILURE, UNSPECIFIED N18.9 - CHRONIC KIDNEY DISEASE, UNSPECIFIED (5) CAD (coronary artery disease) Code(s): I25.10 - ATHSCL HEART DISEASE OF [place] CORONARY ARTERY W/O ANG PCTRS Qualifiers: Coronary Disease-Associated Artery/Lesion type: unspecified vessel or lesion type [place] vs. transplanted heart: [place] heart Associated angina: with stable angina Qualified Code(s): I25.119 - Atherosclerotic heart disease of [place] coronary artery with unspecified angina pectoris (6) COPD (chronic obstructive pulmonary disease) Code(s): J44.9 - CHRONIC OBSTRUCTIVE PULMONARY DISEASE, UNSPECIFIED Qualifiers : COPD type: unspecified COPD Qualified Code(s): J44.9 - Chronic obstructive pulmonary disease, unspecified (7) Chronic pain Code(s): G89.29 - OTHER CHRONIC PAIN (8) Diabetes mellitus Code(s): E11.9 - TYPE 2 DIABETES MELLITUS WITHOUT COMPLICATIONS Qualifiers: Diabetes mellitus type: type 1 Diabetes mellitus complication status: with hyperglycemia Qualified Code(s): E10.65 - Type 1 diabetes mellitus with hyperglycemia (9) Hyperlipidemia Code(s): E78.5 - HYPERLIPIDEMIA, UNSPECIFIED (10) Hypertension Code(s): I10 - ESSENTIAL (PRIMARY) HYPERTENSION (11) Tobacco abuse Code(s): Z72.0 - TOBACCO USE mrsa bacteremia back pain resp failure plan continue current mgmt restarted vanco patient will eed 13 more days of vanco stopped zosyn
--- NOTE | 2017-01-24 15:50 | PN ---
Progress Note, Physician Chief Complaint: Mr Scott says he is doing well. Says his breathing continues to improve, is not short of breath and almost at baseline. No cp or n/v. - Current Medication List Current Medications: Active Medications Acetaminophen (Tylenol -) 650 mg PO Q6H PRN PRN Reason: FEVER OR PAIN Last Admin: 01/24/17 02:27 Dose: 650 mg Albuterol Sulfate (Ventolin 0.5% -) 1 amp NEB Q4H PRN PRN Reason: SHORT OF BREATH/WHEEZING Albuterol/Ipratropium (Duoneb -) 1 amp NEB QIDR [facility] Last Admin: 01/24/17 11:12 Dose: 1 amp Aspirin (Ecotrin -) 81 mg PO DAILY [facility] Last Admin: 01/24/17 10:26 Dose: 81 mg Atorvastatin Calcium (Lipitor -) 40 mg PO HS [facility] Last Admin: 01/23/17 22:28 Dose: 40 mg Clopidogrel Bisulfate (Plavix -) 75 mg PO DAILY [facility] Last Admin: 01/24/17 10:24 Dose: 75 mg Docusate Sodium (Colace -) 100 mg PO BID [facility] Last Admin: 01/24/17 10:25 Dose: 100 mg Furosemide (Lasix -) 40 mg PO DAILY [facility] Last Admin: 01/24/17 10:24 Dose: 40 mg Guaifenesin (Mucinex -) 1,200 mg PO BID [facility] Last Admin: 01/24/17 10:26 Dose: 1,200 mg Heparin Sodium (Porcine) (Heparin -) 5,000 unit SQ TID [facility] Last Admin: 01/24/17 14:32 Dose: 5,000 unit Vancomycin HCl (Vancomycin (Pre-Docked)) 250 mls @ 250 mls/hr IVPB DAILY@1300 [facility] PRN Reason: Protocol Last Admin: 01/24/17 12:38 Dose: 250 mls/hr Insulin Aspart (Novolog Vial Sliding Scale -) 1 vial SQ ACHS [facility] PRN Reason: Protocol Last Admin: 01/24/17 11:11 Dose: Not Given Insulin Detemir (Levemir Vial) 30 units SQ HS [facility] Last Admin: 01/23/17 22:29 Dose: 30 unit Insulin Detemir (Levemir Vial) 45 units SQ AM [facility] Last Admin: 01/24/17 06:37 Dose: 45 unit Lactobacillus Acidophilus (Bacid -) 1 tab PO DAILY [facility] Last Admin: 01/24/17 10:24 Dose: 1 tab Lorazepam (Ativan -) 0.5 mg PO Q8H PRN PRN Reason: AGITATION Last Admin: 01/23/17 22:32 Dose: 0.5 mg Magnesium Oxide (Mag-Ox -) 400 mg PO BID [facility] Methylprednisolone Sodium Succinate (Solu-Medrol -) 40 mg IVPB BID [facility] Metoprolol Succinate (Toprol Xl -) 25 mg PO BID [facility] Last Admin: 01/24/17 10:24 Dose: 25 mg Morphine Sulfate (Ms Contin -) 60 mg PO TID [facility] Last Admin: 01/24/17 14:31 Dose: 60 mg Morphine Sulfate (Morphine Injection -) 1 mg IVPUSH Q3H PRN PRN Reason: PAIN Last Admin: 01/24/17 12:39 Dose: 1 mg Nicotine (Nicoderm Patch -) 21 mg TD DAILY [facility] Last Admin: 01/24/17 10:26 Dose: 21 mg Pantoprazole Sodium (Protonix 40mg Ivpb (Pre-Docked)) 40 mg IVPB BID [facility] Last Admin: 01/24/17 10:23 Dose: 40 mg Polyethylene Glycol (Miralax (For Daily Use) -) 17 gm PO BID PRN PRN Reason: CONSTIPATION Senna (Senna -) 1 tab PO BID [facility] Last Admin: 01/24/17 10:27 Dose: 1 tab - Objective Vital Signs: Vital Signs Temperature 97.9 F 01/24/17 15:01 Pulse Rate 66 01/24/17 15:01 Respiratory Rate 20 01/24/17 15:01 Blood Pressure 139/83 01/24/17 15:01 O2 Sat by Pulse Oximetry (%) 96 01/24/17 11:12 Constitutional: Yes: Well Nourished, No Distress, Calm Cardiovascular: Yes: Regular Rate and Rhythm. No: Gallop, Murmur, Rub Respiratory: Yes: Regular, On Nasal O2, Wheezes. No: Rales, Rhonchi Gastrointestinal: Yes: Normal Bowel Sounds, Soft. No: Distention, Tenderness Extremities: Yes: Erythema, Other (diabetic ulcers) Edema: No Labs: CBC, BMP 01/24/17 06:00 01/24/17 06:00 Problem List - Problems (1) Acute respiratory failure Code(s): J96.00 - ACUTE RESPIRATORY FAILURE, UNSP W HYPOXIA OR HYPERCAPNIA (2) Sepsis Code(s): A41.9 - SEPSIS, UNSPECIFIED ORGANISM (3) Diabetic foot ulcer Code(s): E11.621 - TYPE 2 DIABETES MELLITUS WITH FOOT ULCER L97.509 - NON-PRESSURE CHRONIC ULCER OTH PRT UNSP FOOT W UNSP SEVERITY (4) Cellulitis of foot Code(s): L03.119 - CELLULITIS OF UNSPECIFIED PART OF LIMB (5) Renal failure (ARF), acute on chronic Code(s): N17.9 - ACUTE KIDNEY FAILURE, UNSPECIFIED N18.9 - CHRONIC KIDNEY DISEASE, UNSPECIFIED (6) CAD (coronary artery disease) Code(s): I25.10 - ATHSCL HEART DISEASE OF [place] CORONARY ARTERY W/O ANG PCTRS Qualifiers: Coronary Disease-Associated Artery/Lesion type: unspecified vessel or lesion type [place] vs. transplanted heart: [place] heart Associated angina: with stable angina Qualified Code(s): I25.118 - Atherosclerotic heart disease of [place] coronary artery with other forms of angina pectoris (7) COPD (chronic obstructive pulmonary disease) Code(s): J44.9 - CHRONIC OBSTRUCTIVE PULMONARY DISEASE, UNSPECIFIED Qualifiers : COPD type: unspecified COPD Qualified Code(s): J44.9 - Chronic obstructive pulmonary disease, unspecified (8) Chronic pain Code(s): G89.29 - OTHER CHRONIC PAIN (9) Diabetes mellitus Code(s): E11.9 - TYPE 2 DIABETES MELLITUS WITHOUT COMPLICATIONS Qualifiers: Diabetes mellitus type: type 1 Diabetes mellitus complication status: with hyperglycemia Qualified Code(s): E10.65 - Type 1 diabetes mellitus with hyperglycemia (10) Hyperlipidemia Code(s): E78.5 - HYPERLIPIDEMIA, UNSPECIFIED (11) Hypertension Code(s): I10 - ESSENTIAL (PRIMARY) HYPERTENSION (12) Tobacco abuse Code(s): Z72.0 - TOBACCO USE Assessment/Plan (1) Sepsis Assessment/Plan: -ID following -still with leukocytosis -zosyn stopped, continue vancomycin Code(s): A41.9 - SEPSIS, UNSPECIFIED ORGANISM (2) Diabetic foot ulcer Assessment/Plan: -continue vancomycin, will need 13 more days per ID -podiatry to see and discuss possible amputation Code(s): E11.621 - TYPE 2 DIABETES MELLITUS WITH FOOT ULCER L97.509 - NON-PRESSURE CHRONIC ULCER OTH PRT UNSP FOOT W UNSP SEVERITY (3) Cellulitis of foot Assessment/Plan: -as above Code(s): L03.119 - CELLULITIS OF UNSPECIFIED PART OF LIMB (4) Renal failure (ARF), acute on chronic Assessment/Plan: -s/p hydration -at baseline -back on lasix and tolerating Code(s): N17.9 - ACUTE KIDNEY FAILURE, UNSPECIFIED N18.9 - CHRONIC KIDNEY DISEASE, UNSPECIFIED (5) CAD (coronary artery disease) Assessment/Plan: -continue aspirin and plavix -continue metoprolol -continue lipitor -quiescent, cardiology following Code(s): I25.10 - ATHSCL HEART DISEASE OF [place] CORONARY ARTERY W/O ANG PCTRS Qualifiers: Coronary Disease-Associated Artery/Lesion type: unspecified vessel or lesion type [place] vs. transplanted heart: [place] heart Associated angina: with stable angina Qualified Code(s): I25.119 - Atherosclerotic heart disease of [place] coronary artery with unspecified angina pectoris (6) COPD (chronic obstructive pulmonary disease) Assessment/Plan: -much improved -pulmonary following and note reviewed -continue solumedrol, plan to transition to prednisone in am if improving -continue bronchodilators Code(s): J44.9 - CHRONIC OBSTRUCTIVE PULMONARY DISEASE, UNSPECIFIED Qualifiers : COPD type: unspecified COPD Qualified Code(s): J44.9 - Chronic obstructive pulmonary disease, unspecified (7) Chronic pain Assessment/Plan: -continue current regimen Code(s): G89.29 - OTHER CHRONIC PAIN (8) Diabetes mellitus Assessment/Plan: -appreciate endocrinology assistance -continue levemir with SSI Code(s): E11.9 - TYPE 2 DIABETES MELLITUS WITHOUT COMPLICATIONS Qualifiers: Diabetes mellitus type: type 1 Diabetes mellitus complication status: with hyperglycemia Qualified Code(s): E10.65 - Type 1 diabetes mellitus with hyperglycemia (9) Hyperlipidemia Assessment/Plan: -continue statin Code(s): E78.5 - HYPERLIPIDEMIA, UNSPECIFIED (10) Hypertension Assessment/Plan: -continue hydralazine and metoprolol -monitor Code(s): I10 - ESSENTIAL (PRIMARY) HYPERTENSION (11) Tobacco abuse Assessment/Plan: -nicotine patch Code(s): Z72.0 - TOBACCO USE
--- NOTE | 2017-01-24 17:09 | PN ---
Progress Note (short form) - Note Progress Note: Podiatry: Seen and evaluated at bedside, NAD. Breathing much improved, denies F/V/N/C/SOB /CP. AFebrile, VSS. ZION: L foot: pedal pulses non-palpable, TG wnl, CFT brisk to toes. L 2nd toe dorsal eschar, no probing to bone, no purulence, no fluctuance, ascending cellulitis now resolved. No ST Crepitus, no tenderness to palpation. Medial midfoot superficial eschar, no probing, no purulence, no fluctuance, no ascending cellulitis, no signs of active infection. WBC: 29.7 Blood Cx: no growth x 5 d Imp: 66 year old DM, PVD M with L 2nd toe dry eschar, cellulitis resolved 1. After assessing the patient today, acute cellulitis has resolved and the toe looks quite improved. Although there is eschar present, there is no acute infection present at this time and blood cultures negative. Leukocytosis can be attributed to steroids, there are no other signs of active/acute infection. Will hold off on amputation at this time. I did discuss the potential in the future for amputation with the patient and his family and they are all aware. 2. Rx santyl + DSD daily to L foot 3. No podiatric surgical intervention. Upon discharge, will f/u with me at [facility] on 01/31/17. Nadege Velez DPM
[2017-01-24] MEDS: LORazepam 0.5 MG TABLET PO PRN (21:36)
[2017-01-24] MEDS: MAGNESIUM OXIDE 400 MG TABLET (FP) PO SCH (21:37)
[2017-01-24] MEDS: ATORVASTATIN CA 40 MG TABLET (FP) PO SCH (21:38)
[2017-01-24] MEDS ORDERED: methylPREDNISolone NA SUCC 40 MG/1 ML VIAL IVPB SCH (22:00)
[2017-01-25] MEDS: ACETAMINOPHEN 325 MG TABLET (FP) PO PRN (01:04)
[2017-01-25] MEDS: morphine CARPU-JECT 2 MG/1 ML DISP.SYRIN IVPUSH PRN ×2 (04:42→18:31)
[2017-01-25] MEDS: morphine SO4 SUSTAINED ACTING 30 MG TABLET.SA PO SCH ×3 (06:15→22:31)
[2017-01-25] MEDS: HEPARIN NA (PORCINE) 5,000 UNITS/ML 1ML VIAL SQ SCH ×3 (06:16→22:30)
[2017-01-25] MEDS: INSULIN SLIDING SCALE (NOVOLOG) 1 VIAL SQ SCH ×4 (06:16→22:29)
[2017-01-25] MEDS: INSULIN DETEMIR 100 UNITS/ML MDV SQ SCH ×2 (06:34→22:28)
[2017-01-25] MEDS ORDERED: INSULIN (NOVOLOG) ASPART 100 UNITS/ML 10ML VIAL ONE ×2 (06:37→22:12)
[2017-01-25 07:19] LABS: MCH 28.7 pg (25.7-33.7); MEAN CELL VOLUME 89.7 fl (80-96); PLATELET COUNT 404 K/MM3 (134-434); RDW 15.1 % (11.9-15.9); WHITE BLOOD COUNT 29.4 K/mm3 (4.0-10.0)
[2017-01-25] MEDS: ALBUTEROL SO4 2.5/IPRATROPIUM 0.5 INH SOL 3 ML VIAL.NEB. NEB SCH ×4 (07:41→18:46)
[2017-01-25 07:49] LABS: CALCIUM 8.2 mg/dL (8.5-10.1); CREATININE 1.1 mg/dL (0.7-1.3); MAGNESIUM 1.7 mg/dL (1.8-2.4); PHOSPHOROUS 3.5 mg/dL (2.5-4.9)
--- NOTE | 2017-01-25 09:37 | PN ---
Progress Note (short form) - Note Progress Note: PULMONARY RESTING COMFORTABLY PATIENT SEEN AND EXAMINED ON MEDICAL FLOOR NO SIGNIFICANT CHANGE IN EXAM A/P Acute Hypoxic Respiratory Failure improved MRSA Bacteremia Cellulitis r/o Osteomyelitis Severe Sepsis Lactic Acidosis Acute on Chronic Renal Failure Acute COPD Exacerbation CAD s/p stents PAD DM Smoker - continue lasix - monitor urine output, creatinine - continue antibiotics per ID - wound care - taper FiO2 to keep SpO2 >90% - changed to prednisone 40mg - inhaled bronchodilators - ASA, plavix - DVT prophylaxis Justin ATKINS MD
[2017-01-25] MEDS: NICOTINE 21 MG/24 HOURS TOPICAL PATCH TD SCH (10:20)
[2017-01-25] MEDS: guaiFENesin 600 MG TABLET.ER (FP) PO SCH ×2 (10:20→22:31)
[2017-01-25] MEDS: SENNOSIDES 8.6MG TABLET (FP) PO SCH ×2 (10:20→22:31)
[2017-01-25] MEDS: PANTOPRAZOLE SODIUM 40 MG/100 ML PRE-DOCKED IVPB SCH ×2 (10:20→22:40)
[2017-01-25] MEDS: DOCUSATE SODIUM 100 MG CAPSULE (FP) PO SCH ×2 (10:21→22:31)
[2017-01-25] MEDS: FUROSEMIDE 40 MG TABLET (FP) PO SCH (10:21)
[2017-01-25] MEDS: METOPROLOL SUCCINATE 25 MG TAB.SR.24H (FP) PO SCH ×2 (10:21→22:31)
[2017-01-25] MEDS: MAGNESIUM OXIDE 400 MG TABLET (FP) PO SCH ×2 (10:21→22:31)
[2017-01-25] MEDS: CLOPIDOGREL BISULFATE 75 MG TABLET (FP) PO SCH (10:21)
[2017-01-25] MEDS: LACTOBACILLUS ACIDOPHILUS 1 EACH TAB (FP) PO SCH (10:21)
[2017-01-25] MEDS: ASPIRIN COATED 81 MG TABLET.EC PO SCH (10:21)
[2017-01-25] MEDS: COLLAGENASE CLOSTRIDIUM HIST. 30 GRAMS TUBE TP SCH (10:22)
[2017-01-25] MEDS: predniSONE 20 MG TABLET (UD) PO SCH (10:50)
[2017-01-25 12:50] LABS: PLATELET ESTIMATE ADEQUATE (NORMAL)
[2017-01-25] MEDS: hydrALAZINE HCL 10 MG TABLET PO SCH ×2 (13:25→22:31)
[2017-01-25] MEDS: VANCOMYCIN 1 GRAM (PRE-DOCKED) 250 ML IVPB SCH (14:05)
--- NOTE | 2017-01-25 15:58 | PN ---
Progress Note, Physician History of Present Illness: patient stable no new issues - Current Medication List Current Medications: Active Medications Acetaminophen (Tylenol -) 650 mg PO Q6H PRN PRN Reason: FEVER OR PAIN Last Admin: 01/25/17 01:04 Dose: 650 mg Albuterol Sulfate (Ventolin 0.5% -) 1 amp NEB Q4H PRN PRN Reason: SHORT OF BREATH/WHEEZING Albuterol/Ipratropium (Duoneb -) 1 amp NEB QIDR [facility] Last Admin: 01/25/17 11:14 Dose: 1 amp Aspirin (Ecotrin -) 81 mg PO DAILY [facility] Last Admin: 01/25/17 10:21 Dose: 81 mg Atorvastatin Calcium (Lipitor -) 40 mg PO HS [facility] Last Admin: 01/24/17 21:38 Dose: 40 mg Clopidogrel Bisulfate (Plavix -) 75 mg PO DAILY [facility] Last Admin: 01/25/17 10:21 Dose: 75 mg Collagenase (Santyl -) 1 applic TP DAILY [facility] Last Admin: 01/25/17 10:22 Dose: 1 applic Docusate Sodium (Colace -) 100 mg PO BID [facility] Last Admin: 01/25/17 10:21 Dose: 100 mg Furosemide (Lasix -) 40 mg PO DAILY [facility] Last Admin: 01/25/17 10:21 Dose: 40 mg Guaifenesin (Mucinex -) 1,200 mg PO BID [facility] Last Admin: 01/25/17 10:20 Dose: 1,200 mg Heparin Sodium (Porcine) (Heparin -) 5,000 unit SQ TID [facility] Last Admin: 01/25/17 14:14 Dose: 5,000 unit Hydralazine HCl (Apresoline -) 10 mg PO BID [facility] Last Admin: 01/25/17 13:25 Dose: 10 mg Vancomycin HCl (Vancomycin (Pre-Docked)) 250 mls @ 250 mls/hr IVPB DAILY@1300 [facility] PRN Reason: Protocol Last Admin: 01/25/17 14:05 Dose: 250 mls/hr Insulin Aspart (Novolog Vial Sliding Scale -) 1 vial SQ ACHS [facility] PRN Reason: Protocol Last Admin: 01/25/17 11:57 Dose: Not Given Insulin Detemir (Levemir Vial) 30 units SQ HS [facility] Last Admin: 01/24/17 21:54 Dose: 30 unit Insulin Detemir (Levemir Vial) 45 units SQ AM [facility] Last Admin: 01/25/17 06:34 Dose: 45 unit Lactobacillus Acidophilus (Bacid -) 1 tab PO DAILY [facility] Last Admin: 01/25/17 10:21 Dose: 1 tab Lorazepam (Ativan -) 0.5 mg PO Q8H PRN PRN Reason: AGITATION Last Admin: 01/24/17 21:36 Dose: 0.5 mg Magnesium Oxide (Mag-Ox -) 400 mg PO BID [facility] Last Admin: 01/25/17 10:21 Dose: 400 mg Metoprolol Succinate (Toprol Xl -) 25 mg PO BID [facility] Last Admin: 01/25/17 10:21 Dose: 25 mg Morphine Sulfate (Ms Contin -) 60 mg PO TID [facility] Last Admin: 01/25/17 13:59 Dose: 60 mg Morphine Sulfate (Morphine Injection -) 1 mg IVPUSH Q3H PRN PRN Reason: PAIN Last Admin: 01/25/17 04:42 Dose: 1 mg Nicotine (Nicoderm Patch -) 21 mg TD DAILY [facility] Last Admin: 01/25/17 10:20 Dose: 21 mg Pantoprazole Sodium (Protonix 40mg Ivpb (Pre-Docked)) 40 mg IVPB BID [facility] Last Admin: 01/25/17 10:20 Dose: 40 mg Polyethylene Glycol (Miralax (For Daily Use) -) 17 gm PO BID PRN PRN Reason: CONSTIPATION Prednisone (Deltasone -) 40 mg PO DAILY [facility] Last Admin: 01/25/17 10:50 Dose: 40 mg Senna (Senna -) 1 tab PO BID [facility] Last Admin: 01/25/17 10:20 Dose: 1 tab - Objective Vital Signs: Vital Signs Temperature 98.2 F 01/25/17 14:21 Pulse Rate 66 01/25/17 14:21 Respiratory Rate 20 01/25/17 14:21 Blood Pressure 137/71 01/25/17 14:21 O2 Sat by Pulse Oximetry (%) 98 01/25/17 11:06 Constitutional: Yes: No Distress, Calm Cardiovascular: Yes: S1, S2, Other Respiratory: Yes: Regular, Poor Air Entry, Rhonchi Gastrointestinal: Yes: Normal Bowel Sounds, Soft Musculoskeletal: Yes: Other Extremities: Yes: Other (non healing ulcer diabetic) Wound/Incision: Yes: Clean/Dry, Open to air Neurological: Yes: Alert, Oriented Psychiatric: Yes: Alert Labs: CBC, BMP 01/25/17 06:10 01/25/17 06:10 Assessment/Plan This patient treated couple of days back with cefazolin and flagyl now comes with fulminant infection and in sepsis with gram positive bacteremia i have a strong suspicion that now it might be a resistant organism I dont know how many days he was treated from last infection and how it was done. He has got vanco and zosyn he has very bad kidneys,but he also has severe infection and needs to be covered agree with the patient getting echo also patient leg does not look good and i am worried about deep seated infection Imaging - Results Chest X-ray: Report Reviewed, Image Reviewed Problem List - Problems (1) Sepsis Code(s): A41.9 - SEPSIS, UNSPECIFIED ORGANISM (2) Diabetic foot ulcer Code(s): E11.621 - TYPE 2 DIABETES MELLITUS WITH FOOT ULCER L97.509 - NON-PRESSURE CHRONIC ULCER OTH PRT UNSP FOOT W UNSP SEVERITY (3) Cellulitis of foot Code(s): L03.119 - CELLULITIS OF UNSPECIFIED PART OF LIMB (4) Renal failure (ARF), acute on chronic Code(s): N17.9 - ACUTE KIDNEY FAILURE, UNSPECIFIED N18.9 - CHRONIC KIDNEY DISEASE, UNSPECIFIED (5) CAD (coronary artery disease) Code(s): I25.10 - ATHSCL HEART DISEASE OF [place] CORONARY ARTERY W/O ANG PCTRS Qualifiers: Coronary Disease-Associated Artery/Lesion type: unspecified vessel or lesion type [place] vs. transplanted heart: [place] heart Associated angina: with stable angina Qualified Code(s): I25.119 - Atherosclerotic heart disease of [place] coronary artery with unspecified angina pectoris (6) COPD (chronic obstructive pulmonary disease) Code(s): J44.9 - CHRONIC OBSTRUCTIVE PULMONARY DISEASE, UNSPECIFIED Qualifiers : COPD type: unspecified COPD Qualified Code(s): J44.9 - Chronic obstructive pulmonary disease, unspecified (7) Chronic pain Code(s): G89.29 - OTHER CHRONIC PAIN (8) Diabetes mellitus Code(s): E11.9 - TYPE 2 DIABETES MELLITUS WITHOUT COMPLICATIONS Qualifiers: Diabetes mellitus type: type 1 Diabetes mellitus complication status: with hyperglycemia Qualified Code(s): E10.65 - Type 1 diabetes mellitus with hyperglycemia (9) Hyperlipidemia Code(s): E78.5 - HYPERLIPIDEMIA, UNSPECIFIED (10) Hypertension Code(s): I10 - ESSENTIAL (PRIMARY) HYPERTENSION (11) Tobacco abuse Code(s): Z72.0 - TOBACCO USE mrsa bacteremia back pain resp failure plan continue current mgmt restarted vanco patient will eed 12 more days of vanco will check trough tomorrow
--- NOTE | 2017-01-25 16:20 | PN ---
Progress Note (short form) - Note Progress Note: Chief Complaint: chf History of Present Illness: denies sob, cp, palpit, leg swelling. transitioned to po lasix yesterday. frequent soft stools today on colace and senna. Current Medications Acetaminophen (Tylenol -) 650 mg PO Q6H PRN PRN Reason: FEVER OR PAIN Last Admin: 01/25/17 01:04 Dose: 650 mg Albuterol Sulfate (Ventolin 0.5% -) 1 amp NEB Q4H PRN PRN Reason: SHORT OF BREATH/WHEEZING Albuterol/Ipratropium (Duoneb -) 1 amp NEB QIDR [facility] Last Admin: 01/25/17 11:14 Dose: 1 amp Aspirin (Ecotrin -) 81 mg PO DAILY [facility] Last Admin: 01/25/17 10:21 Dose: 81 mg Atorvastatin Calcium (Lipitor -) 40 mg PO HS [facility] Last Admin: 01/24/17 21:38 Dose: 40 mg Clopidogrel Bisulfate (Plavix -) 75 mg PO DAILY [facility] Last Admin: 01/25/17 10:21 Dose: 75 mg Collagenase (Santyl -) 1 applic TP DAILY [facility] Last Admin: 01/25/17 10:22 Dose: 1 applic Docusate Sodium (Colace -) 100 mg PO BID [facility] Last Admin: 01/25/17 10:21 Dose: 100 mg Furosemide (Lasix -) 40 mg PO DAILY [facility] Last Admin: 01/25/17 10:21 Dose: 40 mg Guaifenesin (Mucinex -) 1,200 mg PO BID [facility] Last Admin: 01/25/17 10:20 Dose: 1,200 mg Heparin Sodium (Porcine) (Heparin -) 5,000 unit SQ TID [facility] Last Admin: 01/25/17 14:14 Dose: 5,000 unit Hydralazine HCl (Apresoline -) 10 mg PO BID [facility] Last Admin: 01/25/17 13:25 Dose: 10 mg Vancomycin HCl (Vancomycin (Pre-Docked)) 250 mls @ 250 mls/hr IVPB DAILY@1300 [facility] PRN Reason: Protocol Last Admin: 01/25/17 14:05 Dose: 250 mls/hr Insulin Aspart (Novolog Vial Sliding Scale -) 1 vial SQ ACHS [facility] PRN Reason: Protocol Last Admin: 01/25/17 11:57 Dose: Not Given Insulin Detemir (Levemir Vial) 30 units SQ HS [facility] Last Admin: 01/24/17 21:54 Dose: 30 unit Insulin Detemir (Levemir Vial) 45 units SQ AM [facility] Last Admin: 01/25/17 06:34 Dose: 45 unit Lactobacillus Acidophilus (Bacid -) 1 tab PO DAILY [facility] Last Admin: 01/25/17 10:21 Dose: 1 tab Lorazepam (Ativan -) 0.5 mg PO Q8H PRN PRN Reason: AGITATION Last Admin: 01/24/17 21:36 Dose: 0.5 mg Magnesium Oxide (Mag-Ox -) 400 mg PO BID [facility] Last Admin: 01/25/17 10:21 Dose: 400 mg Metoprolol Succinate (Toprol Xl -) 25 mg PO BID [facility] Last Admin: 01/25/17 10:21 Dose: 25 mg Morphine Sulfate (Ms Contin -) 60 mg PO TID [facility] Last Admin: 01/25/17 13:59 Dose: 60 mg Morphine Sulfate (Morphine Injection -) 1 mg IVPUSH Q3H PRN PRN Reason: PAIN Last Admin: 01/25/17 04:42 Dose: 1 mg Nicotine (Nicoderm Patch -) 21 mg TD DAILY [facility] Last Admin: 01/25/17 10:20 Dose: 21 mg Pantoprazole Sodium (Protonix 40mg Ivpb (Pre-Docked)) 40 mg IVPB BID [facility] Last Admin: 01/25/17 10:20 Dose: 40 mg Polyethylene Glycol (Miralax (For Daily Use) -) 17 gm PO BID PRN PRN Reason: CONSTIPATION Prednisone (Deltasone -) 40 mg PO DAILY [facility] Last Admin: 01/25/17 10:50 Dose: 40 mg Senna (Senna -) 1 tab PO BID [facility] Last Admin: 01/25/17 10:20 Dose: 1 tab Vital Signs - 24 hr 01/24/17 01/24/17 01/24/17 18:13 21:00 21:59 Temperature 98.6 F 98 F Pulse Rate 69 67 Respiratory 18 18 18 Rate Blood Pressure 157/75 133/74 O2 Sat by Pulse 96 Oximetry (%) 01/25/17 01/25/17 01/25/17 06:00 09:00 11:06 Temperature 98.4 F Pulse Rate 64 68 Respiratory 20 20 Rate Blood Pressure 152/70 O2 Sat by Pulse 95 98 Oximetry (%) 01/25/17 14:21 Temperature 98.2 F Pulse Rate 66 Respiratory 20 Rate Blood Pressure 137/71 O2 Sat by Pulse Oximetry (%) Intake & Output 01/23/17 01/24/17 01/25/17 01/26/17 07:59 07:59 07:59 07:59 Intake Total 2250 1190 500 500 Output Total 4450 2500 1700 700 Balance -2200 -1310 -1200 -200 Weight 191 lb 12.8 oz 189 lb 4.8 oz 189 lb Constitutional: Yes: Well Nourished, No Distress, Calm Cardiovascular: Yes: Regular Rate and Rhythm, S1, S2. No: JVD, Gallop, Murmur Respiratory: Yes: Regular, bibasilar rales. No: Accessory Muscle Use, Wheezes Extremities: No: Cold Edema: trace Neurological: Yes: Alert, Oriented Psychiatric: No: Agitated Labs: CBC, BMP 01/25/17 06:10 01/25/17 06:10 Laboratory Tests 01/25/17 06:10 Magnesium 1.7 L Assessment/Plan Echo 2014: mod global HK (TDS for rwma); RV tds; trace AI; no RVSP Echo 12/2016: TDS; LVSF is "at least mildly reduced: RWM assessment tds; nl RV; nl LA; mild MR/TR; no veg seen STAT repeat Echo 01/17/17--images reviewed by Dr. Mckeon: no vegetation seen; redundant, highly mobile anterior chorda to anterior MV leaflet--cannot definitively exclude vegetation attached to chord though not highly suspicious. no AV or TV vege seen. no MR/TR/AI. EF mod-severely decr'd, ? global (cannot accurately assess for RWMAs)--suspect EF is 35-40%. RV normal size, fxn not well visualized. acute hypoxic/hypercapneic resp failure, acute syst chf/isch CMP, ? PNA ( infiltrate on CXR), ? a.e. copd: - CXR c/w chf (vascular redistribution, interstitial edema) - no valve dysfunction on rpt echo - etiol of chf is likely mod-severe LV systolic dysfunction with IV hydration contributing; ? sepsis causing some transient myocardial dysfunction as well - s/p lasix 60 ivp x 1 01/17--CXR signif improved as of am 3/22 - CXR 01/18 pm thru 01/20 has been slightly worsened, though overall improved vs day of acute resp failure on 01/17 - CVP was low in ICU, was getting gentle ivf--fluids now off - 01/21 cxr continues to show bibasilar infiltrates and R mid-lung infiltrate, incr'd vs admit and vs prior 12/16; no sob; lasix 40 ivp x 1 given - 01/22: bun/creat continuing to improve; will give another dose lasix 40 ivp x 1 today - 01/23-01/24: cxr reviewed--improving in R mid lung and L lower; renal fxn stable --rpt lasix 40 iv x 1 today, start 40mg po daily tomorrow -should have outpt cardio f/u within 2 wks to monitor chf status--says he last saw prior cardio (erick) years ago--advised importance of cardio f/u to monitor chf status, lasix effect/lytes and creat, and also to monitor his heart and make sure no infection present--he says he prefers to only f/u with dr gale -informed dr gale of plan re: lasix and f/u echo in office 4 wks. Will also need follow up bmp. - 01/25 weight stable and bmp improving on po regimen, continue. close outpatient f/u. -steroids, abx per pulm -was on toprol 50 qd at home; bp stable--changed to toprol 25 bid (syst chf dose regimen) -not being treated with WENDY by outpt cardio--? due to labile creats (to 3 at times in past here). startd low dose hydralazine 10 mg bid, uptitration as outpatient MRSA Bacteremia/Sepsis: -Source likely non-healing ulcer -Echo x 2 here no definite vegetation (cannot definitively exclude veg on anterior MV chorda though more likely due to redundant chord); no valve dysfunction -repeat BCx's neg to date -d/w'd dr cristobal--his clinical suspicion for SBE is low, likely source of MRSA bacteremia is diabetic leg wound; -will defer LETICIA, as the aforementioned echo finding is highly likely to represent highly redundant chorda vibrations (i.e. non-pathological). -will repeat echo as outpatient in 4 wks to rule out developing veg on chorda CAD: -follows with dr roddy suarez cardio -s/p PCI (LIBBY) to 100% occl RPDA in 2004 ([facility]) with patent prior RCA stents at that time, EF 50% then; -s/p anterior STEMI 2011 with [place] LIBBY x 2 to mid LAD then ([facility]); residual dz then included 80% prox D1 (large vessel), 95% mD1; 70%mRCA (pre and post prior stents); 40% RPDA; 60% pCFX; 40% mCFX; 70% dCFX; EF then 37% with AK of apex/AL lindsey and AK of IW; -trop 0.3 at time of acute chf 01/17-->0.2-->0.1 -ecg on day of acute chf with worsening of baseline ST-Ts anterior leads -above enzymes/ecg findings are all c/w acute chf/increased LV wall tension, though cannot definitively exclude a component of acute ischemia -given rapid improvement with diuresis and no anginal CP, will defer further ischemia w/u here if remains without unstable angina/ACS findings--pt will f/u with dr suarez cardio/PCP after discharge -continue lipitor, ASA, BB, plavix (on this for cva secondary prevention) VTach: -runs of NSVT at times here -EF possibly mild decreased on echo -01/18 EKG with prolongation of qt interval in addition to frequent pvc's. --> K/ Mag > 2/4 per usual, cont bb as doing, monitor tele. Will d/c zofran. -01/19-: tele unremarkable arf on ckd: -improving -s/pIVF tx of sepsis per crit care HTN: -per home med list, pt on toprol 50 and hydral 10 bid at home - off pressors, metoprolol resumed. hydralazine added. Bradycardia - ? mobitz I vs II while sleeping on tele here previously--likely physiologic sec to hi vagal tone - tele with no bradyarrhtyhmias during this admit - no contraindication to b-blockers (has tolerated at home without dizzy/ syncope spells) h/o CVA: -dx'd lacunar infarct 02/10 clinically then (slurred speech) -? acute CVA/TIA 11/13, seen by neuro then--ASA added to prior plavix, remains on DAPT
--- NOTE | 2017-01-25 21:54 | PN ---
Physical Exam: SUBJECTIVE: Patient seen and examined OBJECTIVE: Vital Signs Period Temp Pulse Resp BP Sys/Chandra Pulse Ox Last 24 Hr 98 F-98.4 F 64-74 18-20 133-152/70-74 95-98 GENERAL: The patient is awake, alert, and fully oriented, in no acute distress. HEAD: Normal with no signs of trauma. EYES: PERRL, extraocular movements intact, sclera anicteric, conjunctiva clear. No ptosis. LUNGS: Breath sounds equal, clear to auscultation bilaterally, no wheezes, no crackles, no accessory muscle use. HEART: Regular rate and rhythm, S1, S2 without murmur, rub or gallop. ABDOMEN: Soft, nontender, nondistended, normoactive bowel sounds, no guarding, no rebound, no hepatosplenomegaly, no masses. EXTREMITIES: L foot: pedal pulses non-palpable, 2nd toe dorsal eschar, medial midfoot superficial eschar; no erythema, no edema, no sign of cellulitis NEUROLOGICAL: Cranial nerves II through XII grossly intact. Normal speech, gait not observed. PSYCH: Normal mood, normal affect. SKIN: Warm, dry, normal turgor, no rashes or lesions noted Laboratory Results - last 24 hr 01/24/17 01/25/17 01/25/17 21:50 06:10 06:10 WBC 29.4 H RBC 3.88 L Hgb 11.1 L Hct 34.8 L MCV 89.7 MCHC 32.0 RDW 15.1 Plt Count 404 MPV 9.0 Neutrophils % 93.0 H Lymphocytes % 5.0 L D Monocytes % 1.0 L Eosinophils % 0.0 Basophils % 0.0 Band Neutrophils 0.0 Myelocytes 1 D Differential Comment Manual diff done Platelet Estimate Adequate Sodium 141 Potassium 4.8 Chloride 105 Carbon Dioxide 27 Anion Gap 9 BUN 50 H D Creatinine 1.1 POC Glucometer 227 Random Glucose 166 H Calcium 8.2 L Phosphorus 3.5 Magnesium 1.7 L 01/25/17 01/25/17 01/25/17 06:15 11:56 16:56 WBC RBC Hgb Hct MCV MCHC RDW Plt Count MPV Neutrophils % Lymphocytes % Monocytes % Eosinophils % Basophils % Band Neutrophils Myelocytes Differential Comment Platelet Estimate Sodium Potassium Chloride Carbon Dioxide Anion Gap BUN Creatinine POC Glucometer 173 155 248 Random Glucose Calcium Phosphorus Magnesium Active Medications Generic Name Dose Route Start Last Admin Trade Name Freq PRN Reason Stop Dose Admin Acetaminophen 650 mg 01/20/17 14:22 01/25/17 01:04 Tylenol - PO 650 mg Q6H PRN Administration FEVER OR PAIN Albuterol Sulfate 1 amp 01/20/17 14:22 Ventolin 0.5% - NEB Q4H PRN SHORT OF BREATH/WHEEZING Albuterol/Ipratropium 1 amp 01/20/17 18:00 01/25/17 18:46 Duoneb - NEB 1 amp QIDR [facility] Administration Aspirin 81 mg 01/21/17 10:00 01/25/17 10:21 Ecotrin - PO 81 mg DAILY [facility] Administration Atorvastatin Calcium 40 mg 01/20/17 22:00 01/24/17 21:38 Lipitor - PO 40 mg HS [facility] Administration Clopidogrel Bisulfate 75 mg 01/21/17 10:00 01/25/17 10:21 Plavix - PO 75 mg DAILY [facility] Administration Collagenase 1 applic 01/25/17 10:00 01/25/17 10:22 Santyl - TP 1 applic DAILY [facility] Administration Docusate Sodium 100 mg 01/20/17 22:00 01/25/17 10:21 Colace - PO 100 mg BID [facility] Administration Furosemide 40 mg 01/24/17 10:00 01/25/17 10:21 Lasix - PO 40 mg DAILY [facility] Administration Guaifenesin 1,200 mg 01/20/17 22:00 01/25/17 10:20 Mucinex - PO 1,200 mg BID [facility] Administration Heparin Sodium (Porcine) 5,000 unit 01/20/17 22:00 01/25/17 14:14 Heparin - SQ 5,000 unit TID [facility] Administration Hydralazine HCl 10 mg 01/25/17 12:30 01/25/17 13:25 Apresoline - PO 10 mg BID [facility] Administration Vancomycin HCl 250 mls @ 250 mls/hr 01/23/17 13:00 01/25/17 14:05 Vancomycin (Pre-Docked) IVPB 250 mls/hr DAILY@1300 [facility] Administration Protocol Insulin Aspart 1 vial 01/20/17 16:30 01/25/17 16:58 Novolog Vial Sliding Scale - SQ 4 units ACHS [facility] Administration Protocol Insulin Detemir 30 units 01/20/17 22:00 01/24/17 21:54 Levemir Vial SQ 30 unit HS [facility] Administration Insulin Detemir 45 units 01/21/17 07:00 01/25/17 06:34 Levemir Vial SQ 45 unit AM [facility] Administration Lactobacillus Acidophilus 1 tab 01/21/17 10:00 01/25/17 10:21 Bacid - PO 1 tab DAILY [facility] Administration Lorazepam 0.5 mg 01/21/17 22:09 01/24/17 21:36 Ativan - PO 0.5 mg Q8H PRN Administration AGITATION Magnesium Oxide 400 mg 01/24/17 22:00 01/25/17 10:21 Mag-Ox - PO 400 mg BID [facility] Administration Metoprolol Succinate 25 mg 01/21/17 10:00 01/25/17 10:21 Toprol Xl - PO 25 mg BID [facility] Administration Morphine Sulfate 60 mg 01/20/17 22:00 01/25/17 13:59 Ms Contin - PO 60 mg TID [facility] Administration Morphine Sulfate 1 mg 01/22/17 11:43 01/25/17 18:31 Morphine Injection - IVPUSH 1 mg Q3H PRN Administration PAIN Nicotine 21 mg 01/21/17 10:00 01/25/17 10:20 Nicoderm Patch - TD 21 mg DAILY [facility] Administration Pantoprazole Sodium 40 mg 01/20/17 22:00 01/25/17 10:20 Protonix 40mg Ivpb (Pre-Docked) IVPB 40 mg BID [facility] Administration Polyethylene Glycol 17 gm 01/20/17 14:22 Miralax (For Daily Use) - PO BID PRN CONSTIPATION Prednisone 40 mg 01/25/17 10:00 01/25/17 10:50 Deltasone - PO 40 mg DAILY [facility] Administration Senna 1 tab 01/20/17 22:00 01/25/17 10:20 Senna - PO 1 tab BID [facility] Administration ASSESSMENT/PLAN: Sepsis secondary to MRSA bacteremia --sepsis resolved --per ID, needs 12 more doses of vanco after today --arrange for PICC line tomorrow and then outpatient treatment at the [facility] floor infusion center; per ID, order trough for day 5 Diabetic foot ulcer Cellulitis of foot --antibiotics as above --per podiatry, hold off amputation at this time; treat wounds with santyl and daily dressing changes --follow up at [facility] on 01/31/17 Renal failure (ARF), acute on chronic --at baseline --back on lasix and tolerating CAD --continue aspirin and plavix --continue metoprolol --continue lipitor COPD --much improved --taper PO prednisone Diabetes mellitus --Novolog sliding scale coverage --Levemir Hyperlipidemia --continue statin Hypertension --continue hydralazine and metoprolol F/E/N Fluids: PO intake adequate Electrolytes: replete as indicated Nutrition: diabetic diet DVT prophylaxis: subq heparin PT eval: could only walk 15 feet Dispo: continues to require inpatient care. Full Code. Visit type - Emergency Visit Emergency Visit: Yes ED Registration Date: 01/12/17 Care time: The patient presented to the Emergency Department on the above date and was hospitalized for further evaluation of their emergent condition. - New Patient This patient is new to me today: Yes Date on this admission: 01/26/17 - Critical Care Critical Care patient: No
[2017-01-25] MEDS: ATORVASTATIN CA 40 MG TABLET (FP) PO SCH (22:31)
[2017-01-25] MEDS: LORazepam 0.5 MG TABLET PO PRN (22:32)
[2017-01-26] MEDS: ALBUTEROL SO4 2.5/IPRATROPIUM 0.5 INH SOL 3 ML VIAL.NEB. NEB SCH ×5 (00:17→23:37)
[2017-01-26] MEDS: morphine CARPU-JECT 2 MG/1 ML DISP.SYRIN IVPUSH PRN ×3 (01:44→18:09)
[2017-01-26] MEDS: morphine SO4 SUSTAINED ACTING 30 MG TABLET.SA PO SCH ×3 (06:47→21:19)
[2017-01-26] MEDS: HEPARIN NA (PORCINE) 5,000 UNITS/ML 1ML VIAL SQ SCH ×3 (06:48→21:19)
[2017-01-26] MEDS: INSULIN DETEMIR 100 UNITS/ML MDV SQ SCH ×2 (06:51→21:18)
[2017-01-26] MEDS: INSULIN SLIDING SCALE (NOVOLOG) 1 VIAL SQ SCH ×4 (06:51→21:20)
[2017-01-26 08:00] LABS: MCH 29.1 pg (25.7-33.7); MCHC 32.6 g/dl (32.0-35.9); MEAN CELL VOLUME 89.2 fl (80-96); PLATELET COUNT 400 K/MM3 (134-434); RDW 15.3 % (11.9-15.9); WHITE BLOOD COUNT 22.6 K/mm3 (4.0-10.0)
[2017-01-26 08:45] LABS: CALCIUM 8.2 mg/dL (8.5-10.1)
[2017-01-26 08:47] LABS: ALBUMIN 2.1 g/dl (3.4-5.0); ALK PHOS 87 U/L (45-117); ANION GAP 11 (8-16); BILIRUBIN,TOTAL 0.5 mg/dL (0.2-1.0); CO2 26 mmol/L (21-32); GLUCOSE,RANDOM 137 mg/dL (74-106); MAGNESIUM 1.6 mg/dL (1.8-2.4); PHOSPHOROUS 2.6 mg/dL (2.5-4.9); SGOT/AST 23 U/L (15-37); SGPT/ALT 38 U/L (12-78); TOT PROT 5.3 g/dl (6.4-8.2)
[2017-01-26 09:25] LABS: PLATELET ESTIMATE ADEQUATE (NORMAL)
--- NOTE | 2017-01-26 10:49 | PN ---
Progress Note (short form) - Note Progress Note: PULMONARY Denies shortness of breath or chest pain. No fevers or chills. Wants to go home. Last Vital Signs Temp Pulse Resp BP Pulse Ox 98.6 F 70 20 146/75 94 L 01/26/17 06:00 01/26/17 06:00 01/26/17 06:00 01/26/17 06:00 01/25/17 22:30 Gen: less tachypneic Heart: RRR Lung: bilateral rhonchi, wheezes but less Abd: soft, nontender Ext: no edema, areas of toe dry necrosis CBC, BMP 01/26/17 06:00 01/26/17 06:00 Active Medications Acetaminophen (Tylenol -) 650 mg PO Q6H PRN PRN Reason: FEVER OR PAIN Last Admin: 01/25/17 01:04 Dose: 650 mg Albuterol Sulfate (Ventolin 0.5% -) 1 amp NEB Q4H PRN PRN Reason: SHORT OF BREATH/WHEEZING Albuterol/Ipratropium (Duoneb -) 1 amp NEB QIDR [facility] Last Admin: 01/26/17 07:41 Dose: 1 amp Aspirin (Ecotrin -) 81 mg PO DAILY [facility] Last Admin: 01/25/17 10:21 Dose: 81 mg Atorvastatin Calcium (Lipitor -) 40 mg PO HS [facility] Last Admin: 01/25/17 22:31 Dose: 40 mg Clopidogrel Bisulfate (Plavix -) 75 mg PO DAILY [facility] Last Admin: 01/25/17 10:21 Dose: 75 mg Collagenase (Santyl -) 1 applic TP DAILY [facility] Last Admin: 01/25/17 10:22 Dose: 1 applic Docusate Sodium (Colace -) 100 mg PO BID [facility] Last Admin: 01/25/17 22:31 Dose: 100 mg Furosemide (Lasix -) 40 mg PO DAILY [facility] Last Admin: 01/25/17 10:21 Dose: 40 mg Guaifenesin (Mucinex -) 1,200 mg PO BID [facility] Last Admin: 01/25/17 22:31 Dose: 1,200 mg Heparin Sodium (Porcine) (Heparin -) 5,000 unit SQ TID [facility] Last Admin: 01/26/17 06:48 Dose: 5,000 unit Hydralazine HCl (Apresoline -) 10 mg PO BID [facility] Last Admin: 01/25/17 22:31 Dose: 10 mg Vancomycin HCl (Vancomycin (Pre-Docked)) 250 mls @ 250 mls/hr IVPB DAILY@1300 [facility] PRN Reason: Protocol Last Admin: 01/25/17 14:05 Dose: 250 mls/hr Insulin Aspart (Novolog Vial Sliding Scale -) 1 vial SQ ACHS [facility] PRN Reason: Protocol Last Admin: 01/26/17 06:51 Dose: Not Given Insulin Detemir (Levemir Vial) 30 units SQ HS [facility] Last Admin: 01/25/17 22:28 Dose: 30 unit Insulin Detemir (Levemir Vial) 45 units SQ AM [facility] Last Admin: 01/26/17 06:51 Dose: 45 unit Lactobacillus Acidophilus (Bacid -) 1 tab PO DAILY [facility] Last Admin: 01/25/17 10:21 Dose: 1 tab Lorazepam (Ativan -) 0.5 mg PO Q8H PRN PRN Reason: AGITATION Last Admin: 01/25/17 22:32 Dose: 0.5 mg Magnesium Oxide (Mag-Ox -) 400 mg PO BID [facility] Last Admin: 01/25/17 22:31 Dose: 400 mg Metoprolol Succinate (Toprol Xl -) 25 mg PO BID [facility] Last Admin: 01/25/17 22:31 Dose: 25 mg Morphine Sulfate (Ms Contin -) 60 mg PO TID [facility] Last Admin: 01/26/17 06:47 Dose: 60 mg Morphine Sulfate (Morphine Injection -) 1 mg IVPUSH Q3H PRN PRN Reason: PAIN Last Admin: 01/26/17 01:44 Dose: 1 mg Nicotine (Nicoderm Patch -) 21 mg TD DAILY [facility] Last Admin: 01/25/17 10:20 Dose: 21 mg Pantoprazole Sodium (Protonix 40mg Ivpb (Pre-Docked)) 40 mg IVPB BID [facility] Last Admin: 01/25/17 22:40 Dose: 40 mg Polyethylene Glycol (Miralax (For Daily Use) -) 17 gm PO BID PRN PRN Reason: CONSTIPATION Prednisone (Deltasone -) 40 mg PO DAILY [facility] Last Admin: 01/25/17 10:50 Dose: 40 mg Senna (Senna -) 1 tab PO BID [facility] Last Admin: 01/25/17 22:31 Dose: 1 tab A/P Acute Hypoxic Respiratory Failure improved MRSA Bacteremia Cellulitis r/o Osteomyelitis Severe Sepsis Lactic Acidosis Acute on Chronic Renal Failure Acute COPD Exacerbation CAD s/p stents PAD DM Smoker - continue lasix - monitor urine output, creatinine - continue antibiotics per ID - wound care - taper FiO2 to keep SpO2 >90% - prednisone taper - inhaled bronchodilators - ASA, plavix - DVT prophylaxis
[2017-01-26] MEDS: CLOPIDOGREL BISULFATE 75 MG TABLET (FP) PO SCH (11:00)
[2017-01-26] MEDS: hydrALAZINE HCL 10 MG TABLET PO SCH ×2 (11:00→21:20)
[2017-01-26] MEDS: METOPROLOL SUCCINATE 25 MG TAB.SR.24H (FP) PO SCH ×2 (11:00→21:20)
[2017-01-26] MEDS: FUROSEMIDE 40 MG TABLET (FP) PO SCH (11:00)
[2017-01-26] MEDS: ASPIRIN COATED 81 MG TABLET.EC PO SCH (11:00)
[2017-01-26] MEDS: SENNOSIDES 8.6MG TABLET (FP) PO SCH ×2 (11:00→21:20)
[2017-01-26] MEDS: guaiFENesin 600 MG TABLET.ER (FP) PO SCH ×2 (11:00→21:20)
[2017-01-26] MEDS: predniSONE 20 MG TABLET (UD) PO SCH (11:00)
[2017-01-26] MEDS: PANTOPRAZOLE SODIUM 40 MG/100 ML PRE-DOCKED IVPB SCH ×2 (11:00→21:20)
[2017-01-26] MEDS: LACTOBACILLUS ACIDOPHILUS 1 EACH TAB (FP) PO SCH (11:00)
[2017-01-26] MEDS: MAGNESIUM OXIDE 400 MG TABLET (FP) PO SCH ×2 (11:00→21:20)
[2017-01-26] MEDS: NICOTINE 21 MG/24 HOURS TOPICAL PATCH TD SCH (11:00)
[2017-01-26] MEDS: DOCUSATE SODIUM 100 MG CAPSULE (FP) PO SCH ×2 (11:00→21:20)
[2017-01-26] MEDS ORDERED: INSULIN (NOVOLOG) ASPART 100 UNITS/ML 10ML VIAL ONE (11:13)
[2017-01-26] MEDS: COLLAGENASE CLOSTRIDIUM HIST. 30 GRAMS TUBE TP SCH (13:41)
[2017-01-26] MEDS: VANCOMYCIN 1 GRAM (PRE-DOCKED) 250 ML IVPB SCH (14:16)
--- NOTE | 2017-01-26 14:44 | PN ---
Progress Note, Physician History of Present Illness: patient doing well no new issues - Current Medication List Current Medications: Active Medications Acetaminophen (Tylenol -) 650 mg PO Q6H PRN PRN Reason: FEVER OR PAIN Last Admin: 01/25/17 01:04 Dose: 650 mg Albuterol Sulfate (Ventolin 0.5% -) 1 amp NEB Q4H PRN PRN Reason: SHORT OF BREATH/WHEEZING Albuterol/Ipratropium (Duoneb -) 1 amp NEB QIDR [facility] Last Admin: 01/26/17 11:11 Dose: 1 amp Aspirin (Ecotrin -) 81 mg PO DAILY [facility] Last Admin: 01/26/17 11:00 Dose: 81 mg Atorvastatin Calcium (Lipitor -) 40 mg PO HS [facility] Last Admin: 01/25/17 22:31 Dose: 40 mg Clopidogrel Bisulfate (Plavix -) 75 mg PO DAILY [facility] Last Admin: 01/26/17 11:00 Dose: 75 mg Collagenase (Santyl -) 1 applic TP DAILY [facility] Last Admin: 01/26/17 13:41 Dose: 1 applic Docusate Sodium (Colace -) 100 mg PO BID [facility] Last Admin: 01/26/17 11:00 Dose: 100 mg Furosemide (Lasix -) 40 mg PO DAILY [facility] Last Admin: 01/26/17 11:00 Dose: 40 mg Guaifenesin (Mucinex -) 1,200 mg PO BID [facility] Last Admin: 01/26/17 11:00 Dose: 1,200 mg Heparin Sodium (Porcine) (Heparin -) 5,000 unit SQ TID [facility] Last Admin: 01/26/17 14:25 Dose: 5,000 unit Hydralazine HCl (Apresoline -) 10 mg PO BID [facility] Last Admin: 01/26/17 11:00 Dose: 10 mg Vancomycin HCl (Vancomycin (Pre-Docked)) 250 mls @ 250 mls/hr IVPB DAILY@1300 [facility] PRN Reason: Protocol Last Admin: 01/26/17 14:16 Dose: 250 mls/hr Insulin Aspart (Novolog Vial Sliding Scale -) 1 vial SQ ACHS [facility] PRN Reason: Protocol Last Admin: 01/26/17 14:22 Dose: Not Given Insulin Detemir (Levemir Vial) 30 units SQ HS [facility] Last Admin: 01/25/17 22:28 Dose: 30 unit Insulin Detemir (Levemir Vial) 45 units SQ AM [facility] Last Admin: 01/26/17 06:51 Dose: 45 unit Lactobacillus Acidophilus (Bacid -) 1 tab PO DAILY [facility] Last Admin: 01/26/17 11:00 Dose: 1 tab Lorazepam (Ativan -) 0.5 mg PO Q8H PRN PRN Reason: AGITATION Last Admin: 01/25/17 22:32 Dose: 0.5 mg Magnesium Oxide (Mag-Ox -) 400 mg PO BID [facility] Last Admin: 01/26/17 11:00 Dose: 400 mg Magnesium Sulfate (Magnesium Sulfate) 2 gm IVPB ONCE ONE Stop: 01/26/17 13:55 Metoprolol Succinate (Toprol Xl -) 25 mg PO BID [facility] Last Admin: 01/26/17 11:00 Dose: 25 mg Morphine Sulfate (Ms Contin -) 60 mg PO TID [facility] Last Admin: 01/26/17 13:41 Dose: 60 mg Morphine Sulfate (Morphine Injection -) 1 mg IVPUSH Q3H PRN PRN Reason: PAIN Last Admin: 01/26/17 11:02 Dose: 1 mg Nicotine (Nicoderm Patch -) 21 mg TD DAILY [facility] Last Admin: 01/26/17 11:00 Dose: 21 mg Pantoprazole Sodium (Protonix 40mg Ivpb (Pre-Docked)) 40 mg IVPB BID [facility] Last Admin: 01/26/17 11:00 Dose: 40 mg Polyethylene Glycol (Miralax (For Daily Use) -) 17 gm PO BID PRN PRN Reason: CONSTIPATION Prednisone (Deltasone -) 40 mg PO DAILY [facility] Last Admin: 01/26/17 11:00 Dose: 40 mg Senna (Senna -) 1 tab PO BID [facility] Last Admin: 01/26/17 11:00 Dose: 1 tab - Objective Vital Signs: Vital Signs Temperature 99 F 01/26/17 14:11 Pulse Rate 72 01/26/17 14:11 Respiratory Rate 20 01/26/17 14:11 Blood Pressure 137/68 01/26/17 14:11 O2 Sat by Pulse Oximetry (%) 94 L 01/25/17 22:30 Constitutional: Yes: No Distress, Calm Cardiovascular: Yes: Regular Rate and Rhythm Respiratory: Yes: Regular, Rhonchi Gastrointestinal: Yes: Normal Bowel Sounds, Soft Musculoskeletal: Yes: Other Extremities: Yes: Other Wound/Incision: Yes: Clean/Dry, Open to air, Other Neurological: Yes: Alert, Oriented Psychiatric: Yes: Alert, Oriented Labs: CBC, BMP 01/26/17 06:00 01/26/17 06:00 Assessment/Plan This patient treated couple of days back with cefazolin and flagyl now comes with fulminant infection and in sepsis with gram positive bacteremia i have a strong suspicion that now it might be a resistant organism I dont know how many days he was treated from last infection and how it was done. He has got vanco and zosyn he has very bad kidneys,but he also has severe infection and needs to be covered agree with the patient getting echo also patient leg does not look good and i am worried about deep seated infection Imaging - Results Chest X-ray: Report Reviewed, Image Reviewed Problem List - Problems (1) Sepsis Code(s): A41.9 - SEPSIS, UNSPECIFIED ORGANISM (2) Diabetic foot ulcer Code(s): E11.621 - TYPE 2 DIABETES MELLITUS WITH FOOT ULCER L97.509 - NON-PRESSURE CHRONIC ULCER OTH PRT UNSP FOOT W UNSP SEVERITY (3) Cellulitis of foot Code(s): L03.119 - CELLULITIS OF UNSPECIFIED PART OF LIMB (4) Renal failure (ARF), acute on chronic Code(s): N17.9 - ACUTE KIDNEY FAILURE, UNSPECIFIED N18.9 - CHRONIC KIDNEY DISEASE, UNSPECIFIED (5) CAD (coronary artery disease) Code(s): I25.10 - ATHSCL HEART DISEASE OF [place] CORONARY ARTERY W/O ANG PCTRS Qualifiers: Coronary Disease-Associated Artery/Lesion type: unspecified vessel or lesion type [place] vs. transplanted heart: [place] heart Associated angina: with stable angina Qualified Code(s): I25.119 - Atherosclerotic heart disease of [place] coronary artery with unspecified angina pectoris (6) COPD (chronic obstructive pulmonary disease) Code(s): J44.9 - CHRONIC OBSTRUCTIVE PULMONARY DISEASE, UNSPECIFIED Qualifiers : COPD type: unspecified COPD Qualified Code(s): J44.9 - Chronic obstructive pulmonary disease, unspecified (7) Chronic pain Code(s): G89.29 - OTHER CHRONIC PAIN (8) Diabetes mellitus Code(s): E11.9 - TYPE 2 DIABETES MELLITUS WITHOUT COMPLICATIONS Qualifiers: Diabetes mellitus type: type 1 Diabetes mellitus complication status: with hyperglycemia Qualified Code(s): E10.65 - Type 1 diabetes mellitus with hyperglycemia (9) Hyperlipidemia Code(s): E78.5 - HYPERLIPIDEMIA, UNSPECIFIED (10) Hypertension Code(s): I10 - ESSENTIAL (PRIMARY) HYPERTENSION (11) Tobacco abuse Code(s): Z72.0 - TOBACCO USE mrsa bacteremia back pain resp failure plan continue current mgmt patient will need 12 more days of vanco vanco trough noted will check vanco levels tomorrow
[2017-01-26] MEDS ORDERED: MAGNESIUM SULF 50% (8.12 MEQ/2 ML-1 GM VIAL) IVPB ONE (15:00)
--- NOTE | 2017-01-26 17:11 | PN ---
Physical Exam: SUBJECTIVE: Patient seen and examined OBJECTIVE: Vital Signs Period Temp Pulse Resp BP Sys/Chandra Pulse Ox Last 24 Hr 97.8 F-99.0 F 66-75 18-20 137-148/68-77 94 GENERAL: The patient is awake, alert, and fully oriented, in no acute distress. HEAD: Normal with no signs of trauma. EYES: PERRL, extraocular movements intact, sclera anicteric, conjunctiva clear. No ptosis. LUNGS: Breath sounds equal, clear to auscultation bilaterally, no wheezes, no crackles, no accessory muscle use. HEART: Regular rate and rhythm, S1, S2 without murmur, rub or gallop. ABDOMEN: Soft, nontender, nondistended, normoactive bowel sounds, no guarding, no rebound, no hepatosplenomegaly, no masses. EXTREMITIES: L foot: pedal pulses non-palpable, 2nd toe dorsal eschar, medial midfoot superficial eschar; no erythema, no edema, no sign of cellulitis NEUROLOGICAL: Cranial nerves II through XII grossly intact. Normal speech, gait not observed. PSYCH: Normal mood, normal affect. SKIN: Warm, dry, normal turgor, no rashes or lesions noted Laboratory Results - last 24 hr 01/25/17 01/25/17 01/26/17 16:56 22:21 06:00 WBC RBC Hgb Hct MCV MCHC RDW Plt Count MPV Neutrophils % Lymphocytes % Monocytes % Differential Comment Platelet Estimate Sodium 139 Potassium 4.5 Chloride 102 Carbon Dioxide 26 Anion Gap 11 BUN 43 H Creatinine 1.0 Creat Clearance w eGFR > 60 POC Glucometer 248 247 Random Glucose 137 H Calcium 8.2 L Phosphorus 2.6 D Magnesium 1.6 L Total Bilirubin 0.5 D AST 23 D ALT 38 D Alkaline Phosphatase 87 Total Protein 5.3 L Albumin 2.1 L Vancomycin Trough 15.7 H* D 01/26/17 01/26/17 01/26/17 06:00 06:50 14:20 WBC 22.6 H RBC 3.94 L Hgb 11.5 L Hct 35.1 L MCV 89.2 MCHC 32.6 RDW 15.3 Plt Count 400 MPV 9.0 Neutrophils % 79.0 Lymphocytes % 17.0 D Monocytes % 4.0 D Differential Comment Manual diff done Platelet Estimate Adequate Sodium Potassium Chloride Carbon Dioxide Anion Gap BUN Creatinine Creat Clearance w eGFR POC Glucometer 136 109 Random Glucose Calcium Phosphorus Magnesium Total Bilirubin AST ALT Alkaline Phosphatase Total Protein Albumin Vancomycin Trough Active Medications Generic Name Dose Route Start Last Admin Trade Name Manohar PRN Reason Stop Dose Admin Acetaminophen 650 mg 01/20/17 14:22 01/25/17 01:04 Tylenol - PO 650 mg Q6H PRN Administration FEVER OR PAIN Albuterol Sulfate 1 amp 01/20/17 14:22 Ventolin 0.5% - NEB Q4H PRN SHORT OF BREATH/WHEEZING Albuterol/Ipratropium 1 amp 01/20/17 18:00 01/26/17 11:11 Duoneb - NEB 1 amp QIDR [facility] Administration Aspirin 81 mg 01/21/17 10:00 01/26/17 11:00 Ecotrin - PO 81 mg DAILY [facility] Administration Atorvastatin Calcium 40 mg 01/20/17 22:00 01/25/17 22:31 Lipitor - PO 40 mg HS [facility] Administration Clopidogrel Bisulfate 75 mg 01/21/17 10:00 01/26/17 11:00 Plavix - PO 75 mg DAILY [facility] Administration Collagenase 1 applic 01/25/17 10:00 01/26/17 13:41 Santyl - TP 1 applic DAILY [facility] Administration Docusate Sodium 100 mg 01/20/17 22:00 01/26/17 11:00 Colace - PO 100 mg BID [facility] Administration Furosemide 40 mg 01/24/17 10:00 01/26/17 11:00 Lasix - PO 40 mg DAILY [facility] Administration Guaifenesin 1,200 mg 01/20/17 22:00 01/26/17 11:00 Mucinex - PO 1,200 mg BID [facility] Administration Heparin Sodium (Porcine) 5,000 unit 01/20/17 22:00 01/26/17 14:25 Heparin - SQ 5,000 unit TID [facility] Administration Hydralazine HCl 10 mg 01/25/17 12:30 01/26/17 11:00 Apresoline - PO 10 mg BID [facility] Administration Vancomycin HCl 250 mls @ 250 mls/hr 01/23/17 13:00 01/26/17 14:16 Vancomycin (Pre-Docked) IVPB 250 mls/hr DAILY@1300 [facility] Administration Protocol Insulin Aspart 1 vial 01/20/17 16:30 01/26/17 16:43 Novolog Vial Sliding Scale - SQ Not Given ACHS [facility] Protocol Insulin Detemir 30 units 01/20/17 22:00 01/25/17 22:28 Levemir Vial SQ 30 unit HS [facility] Administration Insulin Detemir 45 units 01/21/17 07:00 01/26/17 06:51 Levemir Vial SQ 45 unit AM [facility] Administration Lactobacillus Acidophilus 1 tab 01/21/17 10:00 01/26/17 11:00 Bacid - PO 1 tab DAILY [facility] Administration Lorazepam 0.5 mg 01/21/17 22:09 01/25/17 22:32 Ativan - PO 0.5 mg Q8H PRN Administration AGITATION Magnesium Oxide 400 mg 01/24/17 22:00 01/26/17 11:00 Mag-Ox - PO 400 mg BID [facility] Administration Metoprolol Succinate 25 mg 01/21/17 10:00 01/26/17 11:00 Toprol Xl - PO 25 mg BID [facility] Administration Morphine Sulfate 60 mg 01/20/17 22:00 01/26/17 13:41 Ms Contin - PO 60 mg TID [facility] Administration Morphine Sulfate 1 mg 01/22/17 11:43 01/26/17 11:02 Morphine Injection - IVPUSH 1 mg Q3H PRN Administration PAIN Nicotine 21 mg 01/21/17 10:00 01/26/17 11:00 Nicoderm Patch - TD 21 mg DAILY [facility] Administration Pantoprazole Sodium 40 mg 01/20/17 22:00 01/26/17 11:00 Protonix 40mg Ivpb (Pre-Docked) IVPB 40 mg BID [facility] Administration Polyethylene Glycol 17 gm 01/20/17 14:22 Miralax (For Daily Use) - PO BID PRN CONSTIPATION Prednisone 40 mg 01/25/17 10:00 01/26/17 11:00 Deltasone - PO 40 mg DAILY [facility] Administration Senna 1 tab 01/20/17 22:00 01/26/17 11:00 Senna - PO 1 tab BID [facility] Administration ASSESSMENT/PLAN Sepsis secondary to MRSA bacteremia --sepsis resolved --per ID, needs 11 more doses of vanco after today --arrange for PICC line tomorrow and then outpatient treatment at the [facility] infusion center; per ID, order trough for day 5 Diabetic foot ulcer Cellulitis of foot --antibiotics as above --per podiatry, hold off amputation at this time; treat wounds with santyl and daily dressing changes --follow up at [facility] on 01/31/17 Renal failure (ARF), acute on chronic --at baseline --back on lasix and tolerating CAD --continue aspirin and plavix --continue metoprolol --continue lipitor COPD --much improved --taper PO prednisone Diabetes mellitus --Novolog sliding scale coverage --Levemir Hyperlipidemia --continue statin Hypertension --continue hydralazine and metoprolol F/E/N Fluids: PO intake adequate Electrolytes: replete as indicated Nutrition: diabetic diet DVT prophylaxis: subq heparin PT eval: could only walk 15 feet Dispo: patient wants to go home, not to SNF, but can only walk 15 feet. Also needs another 10 days of IV abx treatment after tomorrow. SNF would be better. Discussed with Melanie. Full Code. Visit type - Emergency Visit Emergency Visit: Yes ED Registration Date: 01/12/17 Care time: The patient presented to the Emergency Department on the above date and was hospitalized for further evaluation of their emergent condition. - New Patient This patient is new to me today: No - Critical Care Critical Care patient: No
[2017-01-26] MEDS ORDERED: PICC LINE 8 ML FLUSH PROTOCOL IVPUSH PRN (17:16)
[2017-01-26] MEDS: ATORVASTATIN CA 40 MG TABLET (FP) PO SCH (21:20)
[2017-01-27] MEDS: morphine CARPU-JECT 2 MG/1 ML DISP.SYRIN IVPUSH PRN ×3 (02:29→14:42)
[2017-01-27] MEDS: ACETAMINOPHEN 325 MG TABLET (FP) PO PRN (05:13)
[2017-01-27] MEDS: ALBUTEROL SO4 2.5/IPRATROPIUM 0.5 INH SOL 3 ML VIAL.NEB. NEB SCH ×3 (06:03→17:15)
[2017-01-27] MEDS: HEPARIN NA (PORCINE) 5,000 UNITS/ML 1ML VIAL SQ SCH ×2 (06:31→13:54)
[2017-01-27] MEDS: morphine SO4 SUSTAINED ACTING 30 MG TABLET.SA PO SCH ×2 (06:31→13:52)
[2017-01-27] MEDS: INSULIN SLIDING SCALE (NOVOLOG) 1 VIAL SQ SCH ×2 (06:34→12:36)
[2017-01-27] MEDS: INSULIN DETEMIR 100 UNITS/ML MDV SQ SCH (06:34)
[2017-01-27] MEDS: guaiFENesin 600 MG TABLET.ER (FP) PO SCH (10:45)
[2017-01-27] MEDS: CLOPIDOGREL BISULFATE 75 MG TABLET (FP) PO SCH (10:45)
[2017-01-27] MEDS: SENNOSIDES 8.6MG TABLET (FP) PO SCH (10:45)
[2017-01-27] MEDS: LACTOBACILLUS ACIDOPHILUS 1 EACH TAB (FP) PO SCH (10:45)
[2017-01-27] MEDS: predniSONE 20 MG TABLET (UD) PO SCH (10:45)
[2017-01-27] MEDS: METOPROLOL SUCCINATE 25 MG TAB.SR.24H (FP) PO SCH (10:45)
[2017-01-27] MEDS: ASPIRIN COATED 81 MG TABLET.EC PO SCH (10:46)
[2017-01-27] MEDS: FUROSEMIDE 40 MG TABLET (FP) PO SCH (10:46)
[2017-01-27] MEDS: PANTOPRAZOLE SODIUM 40 MG/100 ML PRE-DOCKED IVPB SCH (10:46)
[2017-01-27] MEDS: hydrALAZINE HCL 10 MG TABLET PO SCH (10:46)
[2017-01-27] MEDS: MAGNESIUM OXIDE 400 MG TABLET (FP) PO SCH (10:46)
[2017-01-27] MEDS: DOCUSATE SODIUM 100 MG CAPSULE (FP) PO SCH (10:46)
[2017-01-27] MEDS: NICOTINE 21 MG/24 HOURS TOPICAL PATCH TD SCH (10:48)
--- NOTE | 2017-01-27 11:05 | PN ---
Progress Note (short form) - Note Progress Note: s: no cp sob palps dizzy orthopnea le edema Current Medications Generic Name Dose Route Start Last Admin Trade Name Freq PRN Reason Stop Dose Admin Acetaminophen 650 mg 01/20/17 14:22 01/27/17 05:13 Tylenol - PO 650 mg Q6H PRN Administration FEVER OR PAIN Albuterol Sulfate 1 amp 01/20/17 14:22 Ventolin 0.5% - NEB Q4H PRN SHORT OF BREATH/WHEEZING Albuterol/Ipratropium 1 amp 01/20/17 18:00 01/27/17 06:03 Duoneb - NEB 1 amp QIDR RADHA Administration Aspirin 81 mg 01/21/17 10:00 01/27/17 10:46 Ecotrin - PO 81 mg DAILY RADHA Administration Atorvastatin Calcium 40 mg 01/20/17 22:00 01/26/17 21:20 Lipitor - PO 40 mg HS RADHA Administration Clopidogrel Bisulfate 75 mg 01/21/17 10:00 01/27/17 10:45 Plavix - PO 75 mg DAILY RADHA Administration Collagenase 1 applic 01/25/17 10:00 01/26/17 13:41 Santyl - TP 1 applic DAILY RADHA Administration Docusate Sodium 100 mg 01/20/17 22:00 01/27/17 10:46 Colace - PO Not Given BID RADHA Furosemide 40 mg 01/24/17 10:00 01/27/17 10:46 Lasix - PO 40 mg DAILY RADHA Administration Guaifenesin 1,200 mg 01/20/17 22:00 01/27/17 10:45 Mucinex - PO 1,200 mg BID RADHA Administration Heparin Sodium (Porcine) 5,000 unit 01/20/17 22:00 01/27/17 06:31 Heparin - SQ 5,000 unit TID RADHA Administration Hydralazine HCl 10 mg 01/25/17 12:30 01/27/17 10:46 Apresoline - PO 10 mg BID RADHA Administration IV Flush 8 ml 01/26/17 17:16 Picc Line Flush IVPUSH PRN PRN Protocol Vancomycin HCl 250 mls @ 250 mls/hr 01/23/17 13:00 01/26/17 14:16 Vancomycin (Pre-Docked) IVPB 250 mls/hr DAILY@1300 RADHA Administration Protocol Insulin Aspart 1 vial 01/20/17 16:30 01/27/17 06:34 Novolog Vial Sliding Scale - SQ 6 units ACHS RADHA Administration Protocol Insulin Detemir 30 units 01/20/17 22:00 01/26/17 21:18 Levemir Vial SQ 30 unit HS RADHA Administration Insulin Detemir 45 units 01/21/17 07:00 01/27/17 06:34 Levemir Vial SQ 45 unit AM RADHA Administration Lactobacillus Acidophilus 1 tab 01/21/17 10:00 01/27/17 10:45 Bacid - PO 1 tab DAILY RADHA Administration Lorazepam 0.5 mg 01/21/17 22:09 01/25/17 22:32 Ativan - PO 0.5 mg Q8H PRN Administration AGITATION Magnesium Oxide 400 mg 01/24/17 22:00 01/27/17 10:46 Mag-Ox - PO 400 mg BID RADHA Administration Metoprolol Succinate 25 mg 01/21/17 10:00 01/27/17 10:45 Toprol Xl - PO 25 mg BID [facility] Administration Morphine Sulfate 60 mg 01/20/17 22:00 01/27/17 06:31 Ms Contin - PO 60 mg TID [facility] Administration Morphine Sulfate 1 mg 01/22/17 11:43 01/27/17 10:48 Morphine Injection - IVPUSH 1 mg Q3H PRN Administration PAIN Nicotine 21 mg 01/21/17 10:00 01/27/17 10:48 Nicoderm Patch - TD 21 mg DAILY RADHA Administration Pantoprazole Sodium 40 mg 01/20/17 22:00 01/27/17 10:46 Protonix 40mg Ivpb (Pre-Docked) IVPB 40 mg BID [facility] Administration Polyethylene Glycol 17 gm 01/20/17 14:22 Miralax (For Daily Use) - PO BID PRN CONSTIPATION Prednisone 40 mg 01/25/17 10:00 01/27/17 10:45 Deltasone - PO 40 mg DAILY RADHA Administration Senna 1 tab 01/20/17 22:00 01/27/17 10:45 Senna - PO Not Given BID [facility] Vital Signs Period Temp Pulse Resp BP Sys/Chandra Pulse Ox Last 24 Hr 97.9 F-99 F 69-72 18-22 134-139/68-73 94 Constitutional: Yes: Well Nourished, No Distress, Calm Cardiovascular: Yes: Regular Rate and Rhythm, S1, S2. No: JVD, Gallop, Murmur Respiratory: Yes: cta bl nl eff No: Accessory Muscle Use, Wheezes Extremities: No: Cold Edema: no le edema Neurological: Yes: aaox3 Psychiatric: No: Agitated no jaundice diaphoresis Labs: CBC, BMP 01/26/17 06:00 01/26/17 06:00 Echo 2014: mod global HK (TDS for rwma); RV tds; trace AI; no RVSP Echo 12/2016: TDS; LVSF is "at least mildly reduced: RWM assessment tds; nl RV; nl LA; mild MR/TR; no veg seen STAT repeat Echo 01/17/17--images reviewed by Dr. Mckeon: no vegetation seen; redundant, highly mobile anterior chorda to anterior MV leaflet--cannot definitively exclude vegetation attached to chord though not highly suspicious. no AV or TV vege seen. no MR/TR/AI. EF mod-severely decr'd, ? global (cannot accurately assess for RWMAs)--suspect EF is 35-40%. RV normal size, fxn not well visualized. Assessment/Plan acute hypoxic/hypercapneic resp failure, acute syst chf/isch CMP, ? PNA ( infiltrate on CXR), ? a.e. copd: - CXR c/w chf (vascular redistribution, interstitial edema) - no valve dysfunction on rpt echo - etiol of chf is likely mod-severe LV systolic dysfunction with IV hydration contributing; ? sepsis causing some transient myocardial dysfunction as well - s/p lasix 60 ivp x 1 01/17--CXR signif improved as of am 01/18 - CXR 01/18 pm thru 01/20 has been slightly worsened, though overall improved vs day of acute resp failure on 01/17 - CVP was low in ICU, was getting gentle ivf--fluids now off - 01/21 cxr continues to show bibasilar infiltrates and R mid-lung infiltrate, incr'd vs admit and vs prior 12/16; no sob; lasix 40 ivp x 1 given - 01/22: bun/creat continuing to improve; will give another dose lasix 40 ivp x 1 today - 01/23-01/24: cxr reviewed--improving in R mid lung and L lower; renal fxn stable --rpt lasix 40 iv x 1 today, start 40mg po daily tomorrow -should have outpt cardio f/u within 2 wks to monitor chf status--says he last saw prior cardio (erick) years ago--advised importance of cardio f/u to monitor chf status, lasix effect/lytes and creat, and also to monitor his heart and make sure no infection present--he says he prefers to only f/u with dr gale -informed dr gale of plan re: lasix and f/u echo in office 4 wks. Will also need follow up bmp. - 01/25-: weight, cr stable on po regimen, continue. close outpatient f/u. -steroids, abx per pulm -was on toprol 50 qd at home; bp stable--changed to toprol 25 bid (syst chf dose regimen) -not being treated with WENDY by outpt cardio--? due to labile creats (to 3 at times in past here). startd low dose hydralazine 10 mg bid, uptitration as outpatient MRSA Bacteremia/Sepsis: -Source likely non-healing ulcer -Echo x 2 here no definite vegetation (cannot definitively exclude veg on anterior MV chorda though more likely due to redundant chord); no valve dysfunction -repeat BCx's neg to date -d/w'd dr cristobal--his clinical suspicion for SBE is low, likely source of MRSA bacteremia is diabetic leg wound; -will defer LETICIA, as the aforementioned echo finding is highly likely to represent highly redundant chorda vibrations (i.e. non-pathological). -will repeat echo as outpatient in 4 wks to rule out developing veg on chorda CAD: -follows with dr roddy suarez cardio -s/p PCI (LIBBY) to 100% occl RPDA in 2004 ([facility]) with patent prior RCA stents at that time, EF 50% then; -s/p anterior STEMI 2011 with [place] LIBBY x 2 to mid LAD then (ten[facility]); residual dz then included 80% prox D1 (large vessel), 95% mD1; 70%mRCA (pre and post prior stents); 40% RPDA; 60% pCFX; 40% mCFX; 70% dCFX; EF then 37% with AK of apex/AL lindsey and AK of IW; -trop 0.3 at time of acute chf 3/21-->0.2-->0.1 -ecg on day of acute chf with worsening of baseline ST-Ts anterior leads -above enzymes/ecg findings are all c/w acute chf/increased LV wall tension, though cannot definitively exclude a component of acute ischemia -given rapid improvement with diuresis and no anginal CP, will defer further ischemia w/u here if remains without unstable angina/ACS findings--pt will f/u with dr suarez cardio/PCP after discharge -continue lipitor, ASA, BB, plavix (on this for cva secondary prevention) VTach: -runs of NSVT at times here -EF possibly mild decreased on echo -01/18 EKG with prolongation of qt interval in addition to frequent pvc's. --> K/ Mag > 2/4 per usual, cont bb as doing, monitor tele. Will d/c zofran. -01/19-: tele unremarkable arf on ckd: -improving -s/pIVF tx of sepsis per crit care HTN: -controlled on current meds Bradycardia - ? mobitz I vs II while sleeping on tele here previously--likely physiologic sec to hi vagal tone - tele with no bradyarrhtyhmias during this admit - no contraindication to b-blockers (has tolerated at home without dizzy/ syncope spells) h/o CVA: -dx'd lacunar infarct 02/10 clinically then (slurred speech) -? acute CVA/TIA 11/13, seen by neuro then--ASA added to prior plavix, remains on DAPT
--- NOTE | 2017-01-27 12:07 | PN ---
Progress Note (short form) - Note Progress Note: PULMONARY RESTING COMFORTABLY PATIENT SEEN AND EXAMINED ON MEDICAL FLOOR NO SIGNIFICANT CHANGE IN EXAM A/P Acute Hypoxic Respiratory Failure improved MRSA Bacteremia Cellulitis r/o Osteomyelitis Severe Sepsis Lactic Acidosis Acute on Chronic Renal Failure Acute COPD Exacerbation CAD s/p stents PAD DM Smoker - continue lasix - monitor urine output, creatinine - continue antibiotics per ID - wound care - taper FiO2 to keep SpO2 >90% - reduce prednisone - inhaled bronchodilators - ASA, plavix - DVT prophylaxis Justin ATKINS MD
[2017-01-27] MEDS: VANCOMYCIN 1 GRAM (PRE-DOCKED) 250 ML IVPB SCH ×2 (13:53→15:30)
--- NOTE | 2017-01-27 14:37 | PN ---
Progress Note, Physician History of Present Illness: doing well no issues for picc line today no complaints breathing well - Current Medication List Current Medications: Active Medications Acetaminophen (Tylenol -) 650 mg PO Q6H PRN PRN Reason: FEVER OR PAIN Last Admin: 01/27/17 05:13 Dose: 650 mg Albuterol Sulfate (Ventolin 0.5% -) 1 amp NEB Q4H PRN PRN Reason: SHORT OF BREATH/WHEEZING Albuterol/Ipratropium (Duoneb -) 1 amp NEB QIDR [facility] Last Admin: 01/27/17 11:43 Dose: 1 amp Aspirin (Ecotrin -) 81 mg PO DAILY [facility] Last Admin: 01/27/17 10:46 Dose: 81 mg Atorvastatin Calcium (Lipitor -) 40 mg PO HS [facility] Last Admin: 01/26/17 21:20 Dose: 40 mg Clopidogrel Bisulfate (Plavix -) 75 mg PO DAILY [facility] Last Admin: 01/27/17 10:45 Dose: 75 mg Collagenase (Santyl -) 1 applic TP DAILY [facility] Last Admin: 01/26/17 13:41 Dose: 1 applic Docusate Sodium (Colace -) 100 mg PO BID [facility] Last Admin: 01/27/17 10:46 Dose: Not Given Furosemide (Lasix -) 40 mg PO DAILY [facility] Last Admin: 01/27/17 10:46 Dose: 40 mg Guaifenesin (Mucinex -) 1,200 mg PO BID [facility] Last Admin: 01/27/17 10:45 Dose: 1,200 mg Heparin Sodium (Porcine) (Heparin -) 5,000 unit SQ TID [facility] Last Admin: 01/27/17 13:54 Dose: 5,000 unit Hydralazine HCl (Apresoline -) 10 mg PO BID [facility] Last Admin: 01/27/17 10:46 Dose: 10 mg IV Flush (Picc Line Flush) 8 ml IVPUSH PRN PRN PRN Reason: Protocol Vancomycin HCl (Vancomycin (Pre-Docked)) 250 mls @ 250 mls/hr IVPB DAILY@1300 RADHA PRN Reason: Protocol Last Admin: 01/27/17 13:53 Dose: 250 mls/hr Insulin Aspart (Novolog Vial Sliding Scale -) 1 vial SQ ACHS RADHA PRN Reason: Protocol Last Admin: 01/27/17 12:36 Dose: 4 units Insulin Detemir (Levemir Vial) 30 units SQ HS [facility] Last Admin: 01/26/17 21:18 Dose: 30 unit Insulin Detemir (Levemir Vial) 45 units SQ AM [facility] Last Admin: 01/27/17 06:34 Dose: 45 unit Lactobacillus Acidophilus (Bacid -) 1 tab PO DAILY [facility] Last Admin: 01/27/17 10:45 Dose: 1 tab Lorazepam (Ativan -) 0.5 mg PO Q8H PRN PRN Reason: AGITATION Last Admin: 01/25/17 22:32 Dose: 0.5 mg Magnesium Oxide (Mag-Ox -) 400 mg PO BID [facility] Last Admin: 01/27/17 10:46 Dose: 400 mg Metoprolol Succinate (Toprol Xl -) 25 mg PO BID [facility] Last Admin: 01/27/17 10:45 Dose: 25 mg Morphine Sulfate (Ms Contin -) 60 mg PO TID [facility] Last Admin: 01/27/17 13:52 Dose: 60 mg Morphine Sulfate (Morphine Injection -) 1 mg IVPUSH Q3H PRN PRN Reason: PAIN Last Admin: 01/27/17 10:48 Dose: 1 mg Nicotine (Nicoderm Patch -) 21 mg TD DAILY [facility] Last Admin: 01/27/17 10:48 Dose: 21 mg Pantoprazole Sodium (Protonix 40mg Ivpb (Pre-Docked)) 40 mg IVPB BID [facility] Last Admin: 01/27/17 10:46 Dose: 40 mg Polyethylene Glycol (Miralax (For Daily Use) -) 17 gm PO BID PRN PRN Reason: CONSTIPATION Prednisone (Deltasone -) 40 mg PO DAILY [facility] Last Admin: 01/27/17 10:45 Dose: 40 mg Senna (Senna -) 1 tab PO BID [facility] Last Admin: 01/27/17 10:45 Dose: Not Given - Objective Vital Signs: Vital Signs Temperature 98.8 F 01/27/17 14:09 Pulse Rate 71 01/27/17 14:09 Respiratory Rate 20 01/27/17 14:09 Blood Pressure 130/74 01/27/17 14:09 O2 Sat by Pulse Oximetry (%) 95 01/27/17 13:17 Constitutional: Yes: No Distress, Calm Cardiovascular: Yes: Regular Rate and Rhythm Respiratory: Yes: Regular, CTA Bilaterally Gastrointestinal: Yes: Normal Bowel Sounds, Soft Musculoskeletal: Yes: WNL Extremities: Yes: Other Integumentary: Yes: Other (non healing ulcer) Wound/Incision: Yes: Other (non healing ulcer) Neurological: Yes: Alert, Oriented Psychiatric: Yes: Alert Labs: CBC, BMP 01/26/17 06:00 01/26/17 06:00 Assessment/Plan This patient treated couple of days back with cefazolin and flagyl now comes with fulminant infection and in sepsis with gram positive bacteremia i have a strong suspicion that now it might be a resistant organism I dont know how many days he was treated from last infection and how it was done. He has got vanco and zosyn he has very bad kidneys,but he also has severe infection and needs to be covered agree with the patient getting echo also patient leg does not look good and i am worried about deep seated infection Imaging - Results Chest X-ray: Report Reviewed, Image Reviewed Problem List - Problems (1) Sepsis Code(s): A41.9 - SEPSIS, UNSPECIFIED ORGANISM (2) Diabetic foot ulcer Code(s): E11.621 - TYPE 2 DIABETES MELLITUS WITH FOOT ULCER L97.509 - NON-PRESSURE CHRONIC ULCER OTH PRT UNSP FOOT W UNSP SEVERITY (3) Cellulitis of foot Code(s): L03.119 - CELLULITIS OF UNSPECIFIED PART OF LIMB (4) Renal failure (ARF), acute on chronic Code(s): N17.9 - ACUTE KIDNEY FAILURE, UNSPECIFIED N18.9 - CHRONIC KIDNEY DISEASE, UNSPECIFIED (5) CAD (coronary artery disease) Code(s): I25.10 - ATHSCL HEART DISEASE OF [place] CORONARY ARTERY W/O ANG PCTRS Qualifiers: Coronary Disease-Associated Artery/Lesion type: unspecified vessel or lesion type [place] vs. transplanted heart: [place] heart Associated angina: with stable angina Qualified Code(s): I25.119 - Atherosclerotic heart disease of [place] coronary artery with unspecified angina pectoris (6) COPD (chronic obstructive pulmonary disease) Code(s): J44.9 - CHRONIC OBSTRUCTIVE PULMONARY DISEASE, UNSPECIFIED Qualifiers : COPD type: unspecified COPD Qualified Code(s): J44.9 - Chronic obstructive pulmonary disease, unspecified (7) Chronic pain Code(s): G89.29 - OTHER CHRONIC PAIN (8) Diabetes mellitus Code(s): E11.9 - TYPE 2 DIABETES MELLITUS WITHOUT COMPLICATIONS Qualifiers: Diabetes mellitus type: type 1 Diabetes mellitus complication status: with hyperglycemia Qualified Code(s): E10.65 - Type 1 diabetes mellitus with hyperglycemia (9) Hyperlipidemia Code(s): E78.5 - HYPERLIPIDEMIA, UNSPECIFIED (10) Hypertension Code(s): I10 - ESSENTIAL (PRIMARY) HYPERTENSION (11) Tobacco abuse Code(s): Z72.0 - TOBACCO USE mrsa bacteremia back pain resp failure plan continue current mgmt patient will need 12 more days of vanco vanco level noted continue current dosage
[2017-01-27] MEDS: COLLAGENASE CLOSTRIDIUM HIST. 30 GRAMS TUBE TP SCH (14:41)
[2017-01-27 18:54] VITALS: BP 133/71; PULSE 67; TEMP 98.1
--- NOTE | 2017-02-28 15:44 | DS ---
Physical Exam: SUBJECTIVE: Patient seen and examined OBJECTIVE: Vital Signs Temperature 98.1 F 01/27/17 16:30 Pulse Rate 67 01/27/17 16:30 Respiratory Rate 20 01/27/17 16:30 Blood Pressure 133/71 01/27/17 16:30 O2 Sat by Pulse Oximetry (%) 95 01/27/17 13:17 PHYSICAL EXAM GENERAL: The patient is awake, alert, and fully oriented, in no acute distress. HEAD: Normal with no signs of trauma. EYES: PERRL, extraocular movements intact, sclera anicteric, conjunctiva clear. No ptosis. LUNGS: Breath sounds equal, clear to auscultation bilaterally, no wheezes, no crackles, no accessory muscle use. HEART: Regular rate and rhythm, S1, S2 without murmur, rub or gallop. ABDOMEN: Soft, nontender, nondistended, normoactive bowel sounds, no guarding, no rebound, no hepatosplenomegaly, no masses. EXTREMITIES: L foot: pedal pulses non-palpable, 2nd toe dorsal eschar, medial midfoot superficial eschar; no erythema, no edema, no sign of cellulitis NEUROLOGICAL: Cranial nerves II through XII grossly intact. Normal speech, gait not observed. PSYCH: Normal mood, normal affect. SKIN: Warm, dry, normal turgor, no rashes or lesions noted CBCD WBC 22.6 K/mm3 (4.0-10.0) H 01/26/17 06:00 RBC 3.94 M/mm3 (4.00-5.60) L 01/26/17 06:00 Hgb 11.5 GM/dL (11.7-16.9) L 01/26/17 06:00 Hct 35.1 % (35.4-49) L 01/26/17 06:00 MCV 89.2 fl (80-96) 01/26/17 06:00 MCHC 32.6 g/dl (32.0-35.9) 01/26/17 06:00 RDW 15.3 % (11.9-15.9) 01/26/17 06:00 Plt Count 400 K/MM3 (134-434) 01/26/17 06:00 MPV 9.0 fl (7.5-11.1) 01/26/17 06:00 CMP Sodium 139 mmol/L (136-145) 01/26/17 06:00 Potassium 4.5 mmol/L (3.5-5.1) 01/26/17 06:00 Chloride 102 mmol/L (98-107) 01/26/17 06:00 Carbon Dioxide 26 mmol/L (21-32) 01/26/17 06:00 Anion Gap 11 (8-16) 01/26/17 06:00 BUN 43 mg/dL (7-18) H 01/26/17 06:00 Creatinine 1.0 mg/dL (0.7-1.3) 01/26/17 06:00 Creat Clearance w eGFR > 60 (>60) 01/26/17 06:00 Calcium 8.2 mg/dL (8.5-10.1) L 01/26/17 06:00 Total Bilirubin 0.5 mg/dL (0.2-1.0) D 01/26/17 06:00 AST 23 U/L (15-37) D 01/26/17 06:00 ALT 38 U/L (12-78) D 01/26/17 06:00 Alkaline Phosphatase 87 U/L (45-117) 01/26/17 06:00 Total Protein 5.3 g/dl (6.4-8.2) L 01/26/17 06:00 Albumin 2.1 g/dl (3.4-5.0) L 01/26/17 06:00 HOSPITAL COURSE: Date of Admission:01/12/17 Date of Discharge: 01/27/17 Sepsis secondary to MRSA bacteremia --sepsis resolved --per ID, needs 10 more doses of vanco --PICC line; outpatient treatment at the [facility]; per ID, order trough for day 5; discussed with Dr. Isbell who will be following patient upon discharge Diabetic foot ulcer Cellulitis of foot --antibiotics as above --per podiatry, hold off amputation at this time; treat wounds with santyl and daily dressing changes --follow up at [facility] on 01/31/17 Renal failure (ARF), acute on chronic --at baseline --back on lasix and tolerating CAD --continue aspirin and plavix --continue metoprolol --continue lipitor COPD --much improved --taper PO prednisone Diabetes mellitus --Novolog sliding scale coverage --Levemir Hyperlipidemia --continue statin Hypertension --continue hydralazine and metoprolol Minutes to complete discharge: 35 Discharge Summary Reason For Visit: ACUTE ON CHRONIC RENAL FAIL/CELLULITIS OF FOOT/ Current Active Problems Chest pain (Acute) Condition: Improved - Instructions Diet, Activity, Other Instructions: Dr. Isbell will be monitoring you while you are home infusion antibiotics. Call his office on Monday and make an appointment for blood testing. Referrals: Vin Isbell MD [Staff Physician] - Disposition: HOME - Home Medications Comprehensive Discharge Medication List: Ambulatory Orders Atorvastatin Ca [Lipitor] 40 mg PO HS #0 tablet 02/19/14 Clopidogrel Bisulfate [Plavix -] 75 mg PO DAILY #20 tablet 02/19/14 Aspirin [Ecotrin] 81 mg PO DAILY 04/29/15 Temazepam [Restoril -] 60 mg PO HS 08/24/15 Docusate Sodium [Colace -] 100 mg PO BID capsule 08/26/15 Insulin Aspart [Novolog] 0 unit SQ PRN PRN 01/10/16 Aclidinium [place] [Tudorza -] 1 inh PO BID 08/13/16 Budesonide/Formeterol Fumarate [SYMBICORT 160/4.5mcg -] 2 inh PO BID 08/13/16 Albuterol 0.083% Nebulizer Clarisse [Ventolin 0.083% Nebulizer Soln -] 1 amp NEB QIDR amp 08/14/16 Hydralazine HCl [Apresoline -] 10 mg PO BID #180 tablet 08/14/16 Insulin (Levemir) [Levemir Vial] 50 units SQ HS ml 08/14/16 Polyethylene Glycol 3350 [Miralax 119 gm Btl -] 17 gm PO BID PRN #0 bottle 08/14 Collagenase Clostridium Hist. [Santyl -] 1 applic TP DAILY #1 tube 01/27/17 Magnesium Oxide [Mag-Ox -] 400 mg PO BID #60 tablet 01/27/17 Methylprednisolone [Medrol Dose [place]] 4 mg PO ASDIR #21 tablet 01/27/17 Walker [Ultra-Light Rollator] 1 each MC DAILY #1 each 01/27/17 Furosemide [Lasix -] 80 mg PO DAILY 02/21/17 Insulin (Levemir) [Levemir Vial] 100 unit SQ AM 02/21/17 This patient is new to me today: No Emergency Visit: Yes ED Registration Date: 01/12/17 Care time: The patient presented to the Emergency Department on the above date and was hospitalized for further evaluation of their emergent condition. Critical Care patient: No - Discharge Referral Referred to [facility] No
== END 2017-01-27 05:20 | disposition home or self-care (01) | DRG 871 ==
LOC: JER 19:39 → JERBED 23:18 → UNDOADMIN 23:18 → JERBED 23:45 → UNDOADMIN 23:45 → J5S 01-13 01:55 → JICU 01-13 17:25 → J5S 01-16 18:26 → JICU 01-17 15:07 → J8W 01-19 15:07 → JICU 01-19 15:10 → J7W 01-20 14:23
PROVIDERS: ADMIT Internal Medicine; ATTEND Nurse Practitioner Acute Care
PROC: 5A1935Z Respiratory Ventilation, Less than 24 Consecutive Hours (ICD-10-PCS; principal; 2017-01-18)
PROC: 0BH17EZ Insertion of Endotracheal Airway into Trachea, Via Natural or Artificial Opening (ICD-10-PCS; 2017-01-18)
PROC: 05HM33Z Insertion of Infusion Device into Right Internal Jugular Vein, Percutaneous Approach (ICD-10-PCS; 2017-01-18)
PROC: 02HV33Z Insertion of Infusion Device into Superior Vena Cava, Percutaneous Approach (ICD-10-PCS; 2017-01-27)
PROC: B518YZA Fluoroscopy of Superior Vena Cava using Other Contrast, Guidance (ICD-10-PCS; 2017-01-27)
DX: A41.02 Sepsis due to Methicillin resistant Staphylococcus aureus (principal); J96.01 Acute respiratory failure with hypoxia; J96.02 Acute respiratory failure with hypercapnia; I50.23 Acute on chronic systolic (congestive) heart failure; J69.0 Pneumonitis due to inhalation of food and vomit; E87.2 Acidosis; N17.9 Acute kidney failure, unspecified; J44.1 Chronic obstructive pulmonary disease with (acute) exacerbation; I47.2 Ventricular tachycardia; I47.1 Supraventricular tachycardia; L03.116 Cellulitis of left lower limb; I42.9 Cardiomyopathy, unspecified; I13.0 Hypertensive heart and chronic kidney disease with heart failure and stage 1 through stage 4 chronic kidney disease, or unspecified chronic kidney disease; N18.4 Chronic kidney disease, stage 4 (severe); E11.52 Type 2 diabetes mellitus with diabetic peripheral angiopathy with gangrene; E11.621 Type 2 diabetes mellitus with foot ulcer; I25.10 Atherosclerotic heart disease of native coronary artery without angina pectoris; G89.29 Other chronic pain; E78.5 Hyperlipidemia, unspecified; Z98.61 Coronary angioplasty status; Z86.73 Personal history of transient ischemic attack (TIA), and cerebral infarction without residual deficits; I25.2 Old myocardial infarction; R65.20 Severe sepsis without septic shock; F17.210 Nicotine dependence, cigarettes, uncomplicated; R00.1 Bradycardia, unspecified; D64.9 Anemia, unspecified; E11.40 Type 2 diabetes mellitus with diabetic neuropathy, unspecified; E87.6 Hypokalemia; R07.89 Other chest pain; L03.032 Cellulitis of left toe; L97.529 Non-pressure chronic ulcer of other part of left foot with unspecified severity
CPT/HCPCS: 31500; 36415; 36569; 36600; 71010-TC; 72128-TC; 72131-TC; 73700-TC-RT; 77001-TC; 80048; 80053; 81003; 81015; 82140; 82436; 82550; 82570; 82803; 83605; 83735; 84100; 84133; 84156; 84300; 84484; 85025; 85651; 86140; 87040; 87070; 87086; 87186; 87205; 93005; 93010; 93306-TC; 94002; 94010; 94640; 94660; 94761; 97116-GP; 97162-PG; 99284-25; C1751; G0480; J1644

== ENCOUNTER 2017-02-03 11:26 | Emergency (ER) | payer OTHER ==
--- NOTE | 2017-02-03 12:10 | PDOC ---
History of Present Illness - General History Source: Patient, Old Records Exam Limitations: No Limitations - History of Present Illness Initial Comments: 02/03/17 15:54 The patient is a 66 year old male, accompanied by , with a significant past medical history of DM, CKD, CVA 10/2014 without residual deficits, CAD with 5 stents s/p STEMI - mLAD PCI 2011, ischemic CM with systolic CHF, COPD, and extensive smoking history (5 packs per day, total of 50 years) who presents to the emergency department for further evaluation of right arm picc. As per the patients right upper extremity has been swelling since this morning. As per the patient has been sleeping on the couch because he is unable to get up the stairs to sleep in a bed. The patient was recently admitted to this hospital on 01/12/17 and discharged 01/27/17. The patient was sent home on vancomycin, prednisone, plavix, and heparin. <John Barrientos - Last Filed: 02/03/17 15:54> <Fletcher Ackerman - Last Filed: 02/03/17 16:02> - General Chief Complaint: Edema Stated Complaint: SWEELING ARM Time Seen by Provider: 02/03/17 12:07 Past History <John Barrientos - Last Filed: 02/03/17 15:54> - Past Medical History Anemia: No Asthma: No Cancer: No Cardiac Disorders: Yes (9 stents, [place], CAD) CVA: Yes (CVA IN 2014 W/O DEFICIT) COPD: Yes CHF: No Dementia: No Diabetes: Yes GI Disorders: Yes (colitis NOW CONSTIPATION) Disorders: Yes (ON FLOMAX; EDEMA) HTN: Yes Hypercholesterolemia: Yes Kidney Stones: Yes Liver Disease: No Suicide Attempt (Hx): No Seizures: No Thyroid Disease: No - Surgical History Abdominal Surgery: No Appendectomy: No Cardiac Surgery: Yes (stents x 9) Cholecystectomy: No Lung Surgery: No Neurologic Surgery: No Orthopedic Surgery: No - Immunization History Immunization Up to Date: No - Psycho/Social/Smoking Cessation Hx Anxiety: No Suicidal Ideation: No Smoking Status: No Smoking History: Current every day smoker Have you smoked in the past 12 months: Yes Number of Cigarettes Smoked Daily: 30 If you are a former smoker, when did you quit?: DOWN FROM 5 PACKS DAILY TO 2.5 PACKS DAILY Cigars Per Day: 0 'Breaking Loose' booklet given: 01/12/17 Hx Alcohol Use: No Drug/Substance Use Hx: No Substance Use Type: None Hx Substance Use Treatment: No <Fletcher Ackerman - Last Filed: 02/03/17 16:02> - Past Medical History Allergies/Adverse Reactions: Allergies Allergy/AdvReac Type Severity Reaction Status Date / Time pantoprazole sodium Allergy Verified 02/03/17 11:36 [From Protonix] Home Medications: Ambulatory Orders Atorvastatin Ca [Lipitor] 40 mg PO HS #0 tablet 02/19/14 Clopidogrel Bisulfate [Plavix -] 75 mg PO DAILY #20 tablet 02/19/14 Aspirin [Ecotrin] 81 mg PO DAILY 04/29/15 Temazepam [Restoril -] 60 mg PO HS 08/24/15 Docusate Sodium [Colace -] 100 mg PO BID capsule 08/26/15 Insulin Aspart [Novolog] 0 unit SQ PRN PRN 01/10/16 Aclidinium [place] [Tudorza -] 1 inh PO BID 08/13/16 Budesonide/Formeterol Fumarate [SYMBICORT 160/4.5mcg -] 2 inh PO BID 08/13/16 Albuterol 0.083% Nebulizer Clarisse [Ventolin 0.083% Nebulizer Soln -] 1 amp NEB QIDR amp 08/14/16 Hydralazine HCl [Apresoline -] 10 mg PO BID #180 tablet 08/14/16 Insulin (Levemir) [Levemir Vial] 50 unit SQ AM #0 08/14/16 Insulin (Levemir) [Levemir Vial] 50 units SQ HS ml 08/14/16 Polyethylene Glycol 3350 [Miralax 119 gm Btl -] 17 gm PO BID PRN #0 bottle 08/14 Collagenase Clostridium Hist. [Santyl -] 1 applic TP DAILY #1 tube 01/27/17 Furosemide [Lasix -] 40 mg PO DAILY #30 tablet 01/27/17 Magnesium Oxide [Mag-Ox -] 400 mg PO BID #60 tablet 01/27/17 Methylprednisolone [Medrol Dose [place]] 4 mg PO ASDIR #21 tablet 01/27/17 Vancomycin 1 Gram (Pre-Docked) [Vancomycin (Pre-Docked)] 250 ml IVPB DAILY@1300 #10 bag 01/27/17 Walker [Ultra-Light Rollator] 1 each DAILY #1 each 01/27/17 Review of Systems - Review of Systems Able to Perform ROS?: Yes Comments:: 02/03/17 15:54 GENERAL/CONSTITUTIONAL: No fever or chills. No weakness. HEAD, EYES, EARS, NOSE AND THROAT: No change in vision. No ear pain or discharge. No sore throat. CARDIOVASCULAR: No chest pain or shortness of breath. RESPIRATORY: No cough, wheezing, or hemoptysis. GASTROINTESTINAL: No nausea, vomiting, diarrhea or constipation. GENITOURINARY: No dysuria, frequency, or change in urination. MUSCULOSKELETAL: Yes Right upper extremity edema. No neck or back pain. SKIN: No rash NEUROLOGIC: No headache, vertigo, loss of consciousness, or change in strength/ sensation. ENDOCRINE: No increased thirst. No abnormal weight change. HEMATOLOGIC/LYMPHATIC: No anemia, easy bleeding, or history of blood clots. ALLERGIC/IMMUNOLOGIC: No hives or skin allergy. <John Barrientos - Last Filed: 02/03/17 15:54> *Physical Exam - Vital Signs Last Vital Signs Temp Pulse Resp BP Pulse Ox 97.9 F 70 22 139/69 95 02/03/17 11:26 02/03/17 11:26 02/03/17 11:26 02/03/17 11:26 02/03/17 11:26 - Physical Exam Comments: 02/03/17 15:54 GENERAL: Awake, alert, and fully oriented, in no acute distress HEAD: No signs of trauma EYES: PERRLA, EOMI, sclera anicteric, conjunctiva clear ENT: Auricles normal inspection, hearing grossly normal, nares patent, oropharynx clear without exudates. Moist mucosa NECK: Normal ROM, supple, no lymphadenopathy, JVD, or masses LUNGS: Breath sounds equal, clear to auscultation bilaterally. No wheezes, and no crackles HEART: Regular rate and rhythm, normal S1 and S2, no murmurs, rubs or gallops ABDOMEN: Soft, nontender, normoactive bowel sounds. No guarding, no rebound. No masses EXTREMITIES: (+) Right upper extremity edema Normal range of motion. No clubbing or cyanosis. No cords, erythema, or tenderness NEUROLOGICAL: Cranial nerves II through XII grossly intact. Normal speech, normal gait SKIN: Warm, Dry, normal turgor, no rashes or lesions noted. <FernandoTen irizarryke - Last Filed: 02/03/17 15:54> ED Treatment Course - RADIOLOGY Radiograph Interpretation: 02/03/17 15:56 EXAM#: TYPE/EXAM: RESULT: [id number] US/DUPLEX VASCUL US-1 ARM Clinical history: Right PICC line. Rule out DVT. COMPARISON: None. Venous Doppler imaging was obtained of the right upper extremity and showed no visible thrombus. The veins showed normal compressibility and augmentation. IMPRESSION: Normal right upper extremity Doppler examination. A PICC line is seen in the right basilic vein. Reported By: Joao Quintero MD 02/03/17 1532 <FloydJohn - Last Filed: 02/03/17 15:54> *DC/Admit/Observation/Transfer - Attestations Scribe Attestion: 02/03/17 15:55 Documentation prepared by John Barrientos, acting as medical numerical control operator for Fletcher Ackerman DO. <FloydJohn - Last Filed: 02/03/17 15:54> - Discharge Dispostion Admit: No - Attestations Physician Attestion: 02/03/17 12:10 I, Dr. Fletcher Ackerman, attest that this document has been prepared under my direction and personally reviewed by me in its entirety. I further attest, that it accurately reflects all work, treatment, procedures and medical decision -making performed by me. <Fletcher Ackerman - Last Filed: 02/03/17 16:02> Diagnosis at time of Disposition: Edema of upper extremity - Discharge Dispostion Disposition: HOME Condition at time of disposition: Good - Referrals Referrals: Vin Isbell MD [Primary Care Provider] - - Patient Instructions Printed Discharge Instructions: DI for Peripheral Edema, Unilateral Additional Instructions: Jose Alejandro Aguayo this took so long today. There is no blood clot. Please keep the arm elevated (higher than your heart). You can continue to use the PICC line. Follow up with your regular doctors next week, Best- Drr. Fletcher Ackerman
[2017-02-03 12:44] VITALS: TEMP 97.9; BMI 29.0
[2017-02-03 16:52] VITALS: BP 133/60; PULSE 74
--- NOTE | 2017-02-08 14:12 | EKG ---
Test Reason : Blood Pressure : / mmHG Vent. Rate : 073 BPM Atrial Rate : 073 BPM P-R Int : 228 ms QRS Dur : 112 ms QT Int : 384 ms P-R-T Axes : 031 -40 120 degrees QTc Int : 423 ms SINUS RHYTHM WITH 1ST DEGREE A-V BLOCK LEFT AXIS DEVIATION LEFT VENTRICULAR HYPERTROPHY WITH REPOLARIZATION ABNORMALITY INFERIOR INFARCT (CITED ON OR BEFORE 16-SEP-2001) ABNORMAL ECG WHEN COMPARED WITH ECG OF 18-JAN-2017 10:05, PREMATURE VENTRICULAR COMPLEXES ARE NO LONGER PRESENT CT INTERVAL HAS INCREASED INVERTED T WAVES HAVE REPLACED NONSPECIFIC T WAVE ABNORMALITY IN LATERAL LEADS QT HAS SHORTENED Confirmed by DELILAH BRADLEY, EDENILSON ([id number]) on 02/08/2017 2:11:59 PM Referred By: Confirmed By:EDENILSON MAZARIEGOS MD
== END 2017-02-03 16:20 | disposition home or self-care (01) ==
LOC: JER 11:26
DX: M79.89 Other specified soft tissue disorders (principal); Z95.5 Presence of coronary angioplasty implant and graft; I25.10 Atherosclerotic heart disease of native coronary artery without angina pectoris; Z86.73 Personal history of transient ischemic attack (TIA), and cerebral infarction without residual deficits; K59.00 Constipation, unspecified; I25.2 Old myocardial infarction; E11.9 Type 2 diabetes mellitus without complications; I10 Essential (primary) hypertension; E78.00 Pure hypercholesterolemia, unspecified; Z87.442 Personal history of urinary calculi; F17.210 Nicotine dependence, cigarettes, uncomplicated
CPT/HCPCS: 93005; 93010; 93971; 99281-25

== ENCOUNTER 2017-03-13 10:50 | Inpatient (IN) | payer OTHER ==
[2017-03-13 12:32] LABS: ALBUMIN 2.6 g/dl (3.4-5.0); CALCIUM 8.6 mg/dL (8.5-10.1); COCKROFT - GAULT 45.43; CREATININE 1.9 mg/dL (0.7-1.3)
[2017-03-13 12:34] LABS: BILIRUBIN,TOTAL 0.2 mg/dL (0.2-1.0); TOT PROT 6.1 g/dl (6.4-8.2)
[2017-03-13 12:38] LABS: MCH 27.5 pg (25.7-33.7); MCHC 31.6 g/dl (32.0-35.9); MEAN PLT VOLUME 7.9 fl (7.5-11.1); PLATELET COUNT 434 K/MM3 (134-434); RDW 17.7 % (11.9-15.9); WHITE BLOOD COUNT 21.2 K/mm3 (4.0-10.0)
--- NOTE | 2017-03-13 12:56 | PDOC ---
History of Present Illness - History of Present Illness Initial Comments: 03/13/17 13:33 Patient is a 67 year old male with significant medical hx of severe COPD (O2 at home), DM, CKD, CVA (10/2014 without residual deficits), CAD s/p stents x 5, s/p STEMI - mLAD PCI 2011, ischemic CM with systolic CHF, and extensive smoking history (5 PPD for 50 years) who is presenting to the ED from hyperbarics chamber for weakness, subjective fever, and scrotal abscess. The patient is undergoing hyperbarics treatment for history of recent resistant skin infections. Today, while undergoing treatment, patient was feeling weak with subjective fevers. The patient also complains of scrotal abscess for the past four days with associated pain, irritation, and swelling. Patient states that he s had this in the past which required admission and debridement. Patient was recently treated with IV abx from 01/29-02/11 for resistant skin infections. Denies nausea, vomiting, increased SOB, or current abx. PMD: Vin Isbell MD <Yvette Coppola - Last Filed: 03/13/17 13:38> <Madie Gonzalez - Last Filed: 03/13/17 15:58> - General Chief Complaint: Shortness of Breath Stated Complaint: SOB,WEAKNESS,BOIL Past History <Yvette Coppola - Last Filed: 03/13/17 13:38> - Past Medical History Anemia: No Asthma: No Cancer: No Cardiac Disorders: Yes (9 stents, VT, CAD) CVA: Yes (CVA IN 2014 W/O DEFICIT) COPD: Yes CHF: No Dementia: No Diabetes: Yes GI Disorders: Yes (colitis NOW CONSTIPATION) Disorders: Yes (ON FLOMAX; EDEMA) HTN: Yes Hypercholesterolemia: Yes Kidney Stones: Yes Liver Disease: No Suicide Attempt (Hx): No Seizures: No Thyroid Disease: No Other medical history: sepsis - Surgical History Abdominal Surgery: No Appendectomy: No Cardiac Surgery: Yes (stents x 9) Cholecystectomy: No Lung Surgery: No Neurologic Surgery: No Orthopedic Surgery: No - Immunization History Immunization Up to Date: No - Psycho/Social/Smoking Cessation Hx Anxiety: No Suicidal Ideation: No Smoking Status: No Smoking History: Former smoker Have you smoked in the past 12 months: No Number of Cigarettes Smoked Daily: 30 If you are a former smoker, when did you quit?: 2017 Cigars Per Day: 0 Information on smoking cessation initiated: No 'Breaking Loose' booklet given: 01/12/17 Hx Alcohol Use: No Drug/Substance Use Hx: No Substance Use Type: None Hx Substance Use Treatment: No <Madie Gonzalez - Last Filed: 03/13/17 15:58> - Past Medical History Allergies/Adverse Reactions: Allergies Allergy/AdvReac Type Severity Reaction Status Date / Time pantoprazole sodium Allergy Verified 03/13/17 10:59 [From Protonix] Home Medications: Ambulatory Orders Clopidogrel Bisulfate [Plavix -] 75 mg PO DAILY #20 tablet 02/19/14 Aspirin [Ecotrin] 81 mg PO DAILY 04/29/15 Temazepam [Restoril -] 30 mg PO BID 08/24/15 Docusate Sodium [Colace -] 100 mg PO BID capsule 08/26/15 Insulin Aspart [Novolog] 0 unit SQ PRN PRN 01/10/16 Aclidinium [place] [Tudorza -] 1 inh PO BID 08/13/16 Budesonide/Formeterol Fumarate [SYMBICORT 160/4.5mcg -] 2 inh PO BID 08/13/16 Albuterol 0.083% Nebulizer Clarisse [Ventolin 0.083% Nebulizer Soln -] 1 amp NEB QIDR amp 08/14/16 Hydralazine HCl [Apresoline -] 10 mg PO BID #180 tablet 08/14/16 Insulin (Levemir) [Levemir Vial] 50 units SQ HS ml 08/14/16 Polyethylene Glycol 3350 [Miralax 119 gm Btl -] 17 gm PO BID PRN #0 bottle 08/14 Collagenase Clostridium Hist. [Santyl -] 1 applic TP DAILY #1 tube 01/27/17 Magnesium Oxide [Mag-Ox -] 400 mg PO BID #60 tablet 01/27/17 Furosemide [Lasix -] 80 mg PO DAILY 02/21/17 Insulin (Levemir) [Levemir Vial] 100 unit SQ AM 02/21/17 Lansoprazole [Prevacid] 30 mg PO DAILY 03/13/17 Metoprolol Tartrate 50 mg PO DAILY 03/13/17 Pregabalin [Lyrica] 50 mg PO BID 03/13/17 Zolpidem Tartrate [Ambien] 10 mg PO HS PRN 05/15/17 Review of Systems - Review of Systems Comments:: 03/13/17 13:34 GENERAL/CONSTITUTIONAL: Subjective fevers. Weakness. No chills. HEAD, EYES, EARS, NOSE AND THROAT: No change in vision. No ear pain or discharge. No sore throat. CARDIOVASCULAR: No chest pain or shortness of breath. RESPIRATORY: No cough, wheezing, or hemoptysis. GASTROINTESTINAL: No nausea, vomiting, diarrhea or constipation. GENITOURINARY: Scrotal abscess. No dysuria, frequency, or change in urination. MUSCULOSKELETAL: No joint or muscle swelling or pain. No neck or back pain. ENDOCRINE: No increased thirst. No abnormal weight change. SKIN: No rash NEUROLOGIC: No headache, vertigo, loss of consciousness, or change in strength/ sensation. <Yvette Coppola - Last Filed: 03/13/17 13:38> *Physical Exam - Vital Signs Last Vital Signs Temp Pulse Resp BP Pulse Ox 100.4 F H 78 18 140/68 98 03/13/17 11:40 03/13/17 12:34 03/13/17 12:34 03/13/17 12:34 03/13/17 12:34 - Physical Exam Comments: 03/13/17 13:35 GENERAL: Awake, alert, and fully oriented, in no acute distress HEAD: No signs of trauma EYES: PERRLA, EOMI, sclera anicteric, conjunctiva clear ENT: Auricles normal inspection, hearing grossly normal, nares patent, oropharynx clear without exudates. Moist mucosa NECK: Normal ROM, supple, no lymphadenopathy, JVD, or masses LUNGS: Breath sounds equal, clear to auscultation bilaterally. No wheezes, and no crackles HEART: Regular rate and rhythm, normal S1 and S2, no murmurs, rubs or gallops ABDOMEN: Obese. Soft, nontender, normoactive bowel sounds. No guarding, no rebound. No masses EXTREMITIES: Normal range of motion, no edema. No clubbing or cyanosis. No cords, erythema, or tenderness NEUROLOGICAL: Cranial nerves II through XII grossly intact. Normal speech, normal gait SKIN: Warm, Dry, well profused, normal turgor, no rashes or lesions noted. HEMATOLOGIC/LYMPHATIC: No anemia, easy bleeding, or history of blood clots. ALLERGIC/IMMUNOLOGIC: No hives or skin allergy. GENITALS: Near the inguinal buttock crease, 2 x 2 cm fluctuant mass with overlying erythema and scrotal erythema. No crepitus, no edema, no discoloration. <Yvette Coppola - Last Filed: 03/13/17 13:38> - Vital Signs Last Vital Signs Temp Pulse Resp BP Pulse Ox 100.4 F H 78 18 140/68 98 03/13/17 11:40 03/13/17 12:34 03/13/17 12:34 03/13/17 12:34 03/13/17 12:34 <Madie Gonzalez - Last Filed: 03/13/17 15:58> ED Treatment Course - LABORATORY CBC & Chemistry Diagram: 03/13/17 12:00 03/13/17 12:00 - ADDITIONAL ORDERS Additional order review: Laboratory Results 03/13/17 03/13/17 12:15 12:00 Sodium 144 Potassium 4.3 Chloride 108 H Carbon Dioxide 27 Anion Gap 9 BUN 54 H D Creatinine 1.9 H D Creat Clearance w eGFR 35.32 Random Glucose 201 H D Lactic Acid 1.266 Calcium 8.6 Total Bilirubin 0.2 D AST 10 L D ALT 13 D Alkaline Phosphatase 134 H D Total Protein 6.1 L Albumin 2.6 L D 03/13/17 12:00 RBC 3.89 L MCV 87.0 MCHC 31.6 L RDW 17.7 H D MPV 7.9 D Neutrophils % Y Lymphocytes % Y - RADIOLOGY Radiograph Interpretation: 03/13/17 13:39 Chest X-Ray Impression: Bilateral pleural thickening suggested. Cardiomegaly. No evidence of pneumothorax, large pleural effusion, airspace opacities to suggest pneumonia. Reported By: Johnson Walton MD <Yvette Coppola - Last Filed: 03/13/17 13:38> - LABORATORY CBC & Chemistry Diagram: 03/13/17 12:00 03/13/17 12:00 - ADDITIONAL ORDERS Additional order review: Laboratory Results 03/13/17 12:00 Sodium 144 Potassium 4.3 Chloride 108 H Carbon Dioxide 27 Anion Gap 9 BUN 54 H D Creatinine 1.9 H D Creat Clearance w eGFR 35.32 Random Glucose 201 H D Calcium 8.6 Total Bilirubin 0.2 D AST 10 L D ALT 13 D Alkaline Phosphatase 134 H D Total Protein 6.1 L Albumin 2.6 L D - RADIOLOGY Radiology Studies Ordered: Category Date Time Status CHEST X-RAY PORTABLE* [RAD] Stat Radiology 03/13/17 11:53 Completed <Madie Gonzalez - Last Filed: 03/13/17 15:58> Medical Decision Making - Medical Decision Making 03/13/17 12:48 67 yo male wit h/o COPD recurrent skin infections, HTN recently admitted and dc on home IV abx 2 weeks ( last 02/11/17), now here today with c/o scrotal abscess. pt has noted left scrotal swelling and pain x 3 dyas. feels generally weak, low grad fever 99. no worsening sob or chest pain. no difficulty urinating. no other complaints. on exam awake alert CTAB no wheeze no crackle, heart RRR no m/r/g. abd soft NT. scrotum with left scrotal, buttock mass 2 cn x 2 cn nukd scrotal erythema. no crepitus. differenetial: infected node, abscess, cellulitis. due to pt h/o recurrent infection, plan us mass, labs, iv abx, urology consult. 03/13/17 15:52 d/w Tony Arrington, urology. will see pt in ED. recommend us testicle. iv abx given vanco and zosy, pt leigh ann be admitted to Dr. Huang, will admit. <Madie Gonzalez - Last Filed: 03/13/17 15:58> *DC/Admit/Observation/Transfer - Attestations Scribe Attestion: 03/13/17 13:36 Documentation prepared by Yvette Coppola, acting as medical language specialist for Madie Gonzalez MD. <Yvette Coppola - Last Filed: 03/13/17 13:38> - Discharge Dispostion Admit: Yes <Madie Gonzalez - Last Filed: 03/13/17 15:58> Diagnosis at time of Disposition: Cellulitis and abscess of buttock - Referrals Referrals: Vin Isbell MD [Primary Care Provider] -
--- NOTE | 2017-03-13 14:08 | EKG ---
Test Reason : Blood Pressure : / mmHG Vent. Rate : 083 BPM Atrial Rate : 083 BPM P-R Int : 220 ms QRS Dur : 102 ms QT Int : 372 ms P-R-T Axes : 022 -39 058 degrees QTc Int : 437 ms SINUS RHYTHM WITH 1ST DEGREE A-V BLOCK WITH OCCASIONAL PREMATURE VENTRICULAR COMPLEXES LEFT AXIS DEVIATION MODERATE VOLTAGE CRITERIA FOR LVH, MAY BE NORMAL VARIANT INFERIOR INFARCT (CITED ON OR BEFORE 16-SEP-2001) ABNORMAL ECG WHEN COMPARED WITH ECG OF 03-FEB-2017 11:45, PREMATURE VENTRICULAR COMPLEXES ARE NOW PRESENT Confirmed by ELISABET BOYER MD ([id number]) on 03/13/2017 2:07:37 PM Referred By: Confirmed By:ELISABET BOYER MD
[2017-03-13] MEDS ORDERED: morphine CARPU-JECT 4 MG/1 ML DISP.SYRIN ONE (14:50)
[2017-03-13] MEDS ORDERED: morphine CARPU-JECT 4 MG/1 ML DISP.SYRIN IVPUSH ONE (15:04)
[2017-03-13 15:13] LABS: URINE APPEARANCE CLEAR; URINE BILIRUBIN NEGATIVE (NEGATIVE); URINE BLOOD NEGATIVE (NEGATIVE); URINE COLOR STRAW; URINE GLUCOSE (UA) NEGATIVE (NEGATIVE); URINE KETONE NEGATIVE (NEGATIVE); URINE LEUK ESTERASE NEGATIVE (NEGATIVE); URINE NITRITE NEGATIVE (NEGATIVE); URINE PROTEIN NEGATIVE (NEGATIVE); URINE UROBILINOGEN NEGATIVE E.U./dl (0.2-1.0)
[2017-03-13] MEDS ORDERED: VANCOMYCIN 1,000 MG in DEXTROSE 5%-WATER - 250 ML IVPB ONE (15:41)
[2017-03-13] MEDS ORDERED: PIPERACILLIN/TAZOB 3.375 GM/50 ML PRE-DOCKED IV ONE (15:44)
[2017-03-13] MEDS ORDERED: VANCOMYCIN 1 GRAM (PRE-DOCKED) 250 ML IVPB ONE (15:52)
[2017-03-13] MEDS ORDERED: PIPERACILLIN/TAZOB 3.375 GM 50 ML IVPB ONE (15:53)
[2017-03-13] MEDS ORDERED: POLYETHYLENE GLYCOL 3350 119 GM BTL PO PRN (16:34)
[2017-03-13] MEDS ORDERED: ONDANSETRON 4 MG/2 ML VIAL IVPB PRN (16:37)
--- NOTE | 2017-03-13 16:45 | HP ---
Admitting History and Physical - Primary Care Physician PCP: Vin Isbell - Admission Chief Complaint: I have an abscess History of Present Illness: Mr Scott is a 67 year old gentleman who comes in with a scrotal abscess. He says he has gotten them before but they normally resolve, however he has to have one drained in the past. He notes that it was becoming swollen and painful. He was at hyperbarics today and felt that it was not getting better so came to the ER to have it evaluated. He denies fevers, chills, lightheadedness, dizziness, passing out, chest pain or pressure, shortness of breath, nausea, vomiting, diarrhea, constipation, difficulty or pain on urination, or leg swelling. 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 No: AFIB Pulmonary: Yes: COPD Gastrointestinal: Yes: Other (Colitis) Renal/: Yes: Renal Inusuff, Other (hyperkalemia) Psych: Yes: Addictions Musculoskeletal: Yes: Other (Lumbar radiculopathy) Endocrine: Yes: Diabetes Mellitus - Past Surgical History Past Surgical History: Yes: Stent - Smoking History Smoking history: Former smoker Have you smoked in the past 12 months: No Aproximately how many cigarettes per day: 30 If you are a former smoker, when did you quit?: 2017 - Alcohol/Substance Use Hx Alcohol Use: No History of Substance Use: reports: None - Social History Usual Living Arrangement: Yes: With Spouse ADL: Independent History of Recent Travel: No Home Medications - Allergies Allergies/Adverse Reactions: Allergies Allergy/AdvReac Type Severity Reaction Status Date / Time pantoprazole sodium Allergy Verified 03/13/17 10:59 [From Protonix] - Home Medications Home Medications: Ambulatory Orders Clopidogrel Bisulfate [Plavix -] 75 mg PO DAILY #20 tablet 02/19/14 Aspirin [Ecotrin] 81 mg PO DAILY 04/29/15 Temazepam [Restoril -] 30 mg PO BID 08/24/15 Docusate Sodium [Colace -] 100 mg PO BID capsule 08/26/15 Insulin Aspart [Novolog] 0 unit SQ PRN PRN 01/10/16 Aclidinium [place] [Tudorza -] 1 inh PO BID 08/13/16 Budesonide/Formeterol Fumarate [SYMBICORT 160/4.5mcg -] 2 inh PO BID 08/13/16 Albuterol 0.083% Nebulizer Clarisse [Ventolin 0.083% Nebulizer Soln -] 1 amp NEB QIDR amp 08/14/16 Hydralazine HCl [Apresoline -] 10 mg PO BID #180 tablet 08/14/16 Insulin (Levemir) [Levemir Vial] 50 units SQ HS ml 08/14/16 Polyethylene Glycol 3350 [Miralax 119 gm Btl -] 17 gm PO BID PRN #0 bottle 08/14 Collagenase Clostridium Hist. [Santyl -] 1 applic TP DAILY #1 tube 01/27/17 Magnesium Oxide [Mag-Ox -] 400 mg PO BID #60 tablet 01/27/17 Furosemide [Lasix -] 80 mg PO DAILY 02/21/17 Insulin (Levemir) [Levemir Vial] 100 unit SQ AM 02/21/17 Lansoprazole [Prevacid] 30 mg PO DAILY 03/13/17 Metoprolol Tartrate 50 mg PO DAILY 03/13/17 Pregabalin [Lyrica] 50 mg PO BID 03/13/17 Zolpidem Tartrate [Ambien] 10 mg PO HS PRN 03/13/17 Family Disease History - Family Disease History Family Disease History: Diabetes: Grandparent, Sister (COPD), CA: Father, Respiratory: Sister, Other: Mother (CVA) Review of Systems Findings/Remarks: Full review of systems obtained, as per HPI and otherwise negative Physical Examination Vital Signs: Vital Signs Temperature 100.4 F H 03/13/17 11:40 Pulse Rate 78 03/13/17 12:34 Respiratory Rate 18 03/13/17 12:34 Blood Pressure 140/68 03/13/17 12:34 O2 Sat by Pulse Oximetry (%) 98 03/13/17 12:34 Constitutional: Yes: Well Nourished, No Distress, Calm Eyes: Yes: Conjunctiva Clear, EOM Intact, PERRL HENT: Yes: Atraumatic, Normocephalic Cardiovascular: Yes: Regular Rate and Rhythm. No: Gallop, Murmur, Rub Respiratory: Yes: Regular, CTA Bilaterally, On Nasal O2. No: Rales, Rhonchi, Wheezes Gastrointestinal: Yes: Normal Bowel Sounds, Soft. No: Distention, Tenderness Renal/: Yes: Other (L perineal erythema with fluid collection) Extremities: Yes: WNL Edema: No Labs: CBC, BMP 03/13/17 12:00 03/13/17 12:00 Imaging - Results Chest X-ray: Report Reviewed, Image Reviewed Problem List - Problems (1) Perineal abscess Assessment/Plan: -with sepsis -admit to the hospital -given vancomycin and zosyn in the ED -urology consulted and will see -plan for drainage -since with sepsis, consult ID as well Code(s): L02.215 - CUTANEOUS ABSCESS OF PERINEUM (2) Sepsis Assessment/Plan: -as evidenced by leukocytosis, fevers, and worsening renal function -antibiotics as above Code(s): A41.9 - SEPSIS, UNSPECIFIED ORGANISM (3) CAD (coronary artery disease) Assessment/Plan: -quiescent -continue home regimen Code(s): I25.10 - ATHSCL HEART DISEASE OF [place] CORONARY ARTERY W/O ANG PCTRS Qualifiers: (4) CKD (chronic kidney disease) Assessment/Plan: -treat sepsis -monitor Code(s): N18.9 - CHRONIC KIDNEY DISEASE, UNSPECIFIED Qualifiers: Chronic kidney disease stage: stage 2 (mild) Qualified Code(s): N18.2 - Chronic kidney disease, stage 2 (mild) (5) COPD (chronic obstructive pulmonary disease) Assessment/Plan: -not in exacerbation -continue oxygen and home regimen Code(s): J44.9 - CHRONIC OBSTRUCTIVE PULMONARY DISEASE, UNSPECIFIED (6) Congestive heart failure (CHF) Assessment/Plan: -continue lasix and blood pressure control Code(s): I50.9 - HEART FAILURE, UNSPECIFIED Qualifiers: Congestive heart failure type: systolic Congestive heart failure chronicity: chronic Qualified Code(s): I50.22 - Chronic systolic ( congestive) heart failure (7) Diabetes mellitus Assessment/Plan: -diabetic diet -continue levemir -FSBS and SSI -continue hyperbaric treatment for diabetic ulcer Code(s): E11.9 - TYPE 2 DIABETES MELLITUS WITHOUT COMPLICATIONS Qualifiers: Diabetes mellitus type: type 2 Diabetes mellitus complication status: with circulatory complication Diabetes mellitus complication detail: with peripheral angiopathy with gangrene Diabetes mellitus nursing home insulin use : with technician terminal and repeater use Qualified Code(s): E11.52 - Type 2 diabetes mellitus with diabetic peripheral angiopathy with gangrene; Z79.4 - terminal make up operator ( current) use of insulin (8) Hypertension Assessment/Plan: -continue metoprolol -monitor Code(s): I10 - ESSENTIAL (PRIMARY) HYPERTENSION (9) Chronic respiratory failure Assessment/Plan: -continue oxygen support Code(s): J96.10 - CHRONIC RESPIRATORY FAILURE, UNSP W HYPOXIA OR HYPERCAPNIA Qualifiers: Respiratory failure complication: hypoxia Qualified Code(s): J96.11 - Chronic respiratory failure with hypoxia
[2017-03-13 17:50] LABS: METAMYELOCYTE 1 % (0-2)
[2017-03-13 17:51] LABS: PLATELET ESTIMATE INCREASED (NORMAL)
--- NOTE | 2017-03-13 17:53 | CONSULT ---
Consult Consult Specialty:: infectious diseases Reason for Consultation:: scrotal abscess - History of Present Illness Chief Complaint: swelling scrotum. pain legs History of Present Illness: 67 year old gentleman who comes in with a scrotal abscess. Patient well known to me from the last admission He says he has gotten them before but they normally resolve, however he has to have one drained in the past. 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 No: AFIB Pulmonary: Yes: COPD Gastrointestinal: Yes: Other (Colitis) Renal/: Yes: Renal Inusuff, Other (hyperkalemia) Psych: Yes: Addictions Musculoskeletal: Yes: Other (Lumbar radiculopathy) Endocrine: Yes: Diabetes Mellitus - Past Surgical History Past Surgical History: Yes: Stent - Alcohol/Substance Use Hx Alcohol Use: No History of Substance Use: reports: None - Smoking History Smoking history: Former smoker Have you smoked in the past 12 months: No Aproximately how many cigarettes per day: 30 If you are a former smoker, when did you quit?: 2017 - Social History Usual Living Arrangement: With Spouse ADL: Independent History of Recent Travel: No Home Medications - Allergies Allergies/Adverse Reactions: Allergies Allergy/AdvReac Type Severity Reaction Status Date / Time pantoprazole sodium Allergy Verified 03/13/17 10:59 [From Protonix] - Home Medications Home Medications: Ambulatory Orders Clopidogrel Bisulfate [Plavix -] 75 mg PO DAILY #20 tablet 02/19/14 Aspirin [Ecotrin] 81 mg PO DAILY 04/29/15 Temazepam [Restoril -] 30 mg PO BID 08/24/15 Docusate Sodium [Colace -] 100 mg PO BID capsule 08/26/15 Insulin Aspart [Novolog] 0 unit SQ PRN PRN 01/10/16 Aclidinium [place] [Tudorza -] 1 inh PO BID 08/13/16 Budesonide/Formeterol Fumarate [SYMBICORT 160/4.5mcg -] 2 inh PO BID 08/13/16 Albuterol 0.083% Nebulizer Clarisse [Ventolin 0.083% Nebulizer Soln -] 1 amp NEB QIDR amp 08/14/16 Hydralazine HCl [Apresoline -] 10 mg PO BID #180 tablet 08/14/16 Insulin (Levemir) [Levemir Vial] 50 units SQ HS ml 08/14/16 Polyethylene Glycol 3350 [Miralax 119 gm Btl -] 17 gm PO BID PRN #0 bottle 08/14 Collagenase Clostridium Hist. [Santyl -] 1 applic TP DAILY #1 tube 01/27/17 Magnesium Oxide [Mag-Ox -] 400 mg PO BID #60 tablet 01/27/17 Furosemide [Lasix -] 80 mg PO DAILY 02/21/17 Insulin (Levemir) [Levemir Vial] 100 unit SQ AM 02/21/17 Lansoprazole [Prevacid] 30 mg PO DAILY 03/13/17 Metoprolol Tartrate 50 mg PO DAILY 03/13/17 Pregabalin [Lyrica] 50 mg PO BID 03/13/17 Zolpidem Tartrate [Ambien] 10 mg PO HS PRN 03/13/17 Family Disease History - Family Disease History Family Disease History: Diabetes: Grandparent, Sister (COPD), CA: Father, Respiratory: Sister, Other: Mother (CVA) Review of Systems - Review of Systems Constitutional: reports: No Symptoms Eyes: reports: No Symptoms HENT: reports: No Symptoms Neck: reports: No Symptoms Cardiovascular: reports: No Symptoms Respiratory: reports: No Symptoms Gastrointestinal: reports: No Symptoms Genitourinary: reports: Other (scrotal abscess) Musculoskeletal: reports: Other Integumentary: reports: Other Neurological: reports: No Symptoms Endocrine: reports: No Symptoms Hematology/Lymphatic: reports: No Symptoms Psychiatric: reports: No Symptoms Physical Exam Vital Signs: Vital Signs Temperature 98.4 F 03/13/17 17:16 Pulse Rate 69 03/13/17 17:16 Respiratory Rate 18 03/13/17 17:16 Blood Pressure 139/72 03/13/17 17:16 O2 Sat by Pulse Oximetry (%) 98 03/13/17 17:16 Constitutional: Yes: Calm, Mild Distress Eyes: Yes: Conjunctiva Clear HENT: Yes: Atraumatic Neck: Yes: Supple Cardiovascular: Yes: Regular Rate and Rhythm, S1, S2 Respiratory: Yes: Regular, CTA Bilaterally Gastrointestinal: Yes: Normal Bowel Sounds, Soft Renal/: Yes: Other (scrotal abscess) Musculoskeletal: Yes: Other Extremities: Yes: Other (wound healing well) Neurological: Yes: Alert, Oriented Psychiatric: Yes: Alert, Oriented Imaging - Results Chest X-ray: Report Reviewed, Image Reviewed Ultrasound: Report Reviewed, Image Reviewed Assessment/Plan Problem List - Problems (1) Perineal abscess Code(s): L02.215 - CUTANEOUS ABSCESS OF PERINEUM (2) Sepsis Code(s): A41.9 - SEPSIS, UNSPECIFIED ORGANISM (3) CAD (coronary artery disease) Code(s): I25.10 - ATHSCL HEART DISEASE OF [place] CORONARY ARTERY W/O ANG PCTRS Qualifiers: (4) CKD (chronic kidney disease) Code(s): N18.9 - CHRONIC KIDNEY DISEASE, UNSPECIFIED Qualifiers: Chronic kidney disease stage: stage 2 (mild) Qualified Code(s): N18.2 - Chronic kidney disease, stage 2 (mild) (5) COPD (chronic obstructive pulmonary disease) Code(s): J44.9 - CHRONIC OBSTRUCTIVE PULMONARY DISEASE, UNSPECIFIED (6) Congestive heart failure (CHF)l Code(s): I50.9 - HEART FAILURE, UNSPECIFIED Qualifiers: Congestive heart failure type: systolic Congestive heart failure chronicity: chronic Qualified Code(s): I50.22 - Chronic systolic ( congestive) heart failure (7) Diabetes mellitus Code(s): E11.9 - TYPE 2 DIABETES MELLITUS WITHOUT COMPLICATIONS Qualifiers: Diabetes mellitus type: type 2 Diabetes mellitus complication status: with circulatory complication Diabetes mellitus complication detail: with peripheral angiopathy with gangrene Diabetes mellitus rodent exterminator insulin use : with rodent exterminator use Qualified Code(s): E11.52 - Type 2 diabetes mellitus with diabetic peripheral angiopathy with gangrene; Z79.4 - exterminator helper termite ( current) use of insulin (8) Hypertension Code(s): I10 - ESSENTIAL (PRIMARY) HYPERTENSION (9) Chronic respiratory failure Code(s): J96.10 - CHRNIC RESPIRATORY FAILURE, UNSP W HYPOXIA OR HYPERCAPNIA Qualifiers: Respiratory failure complication: hypoxia Qualified Code(s): J96.11 - Chronic respiratory failure with hypoxia plan will start patient on abx await for urology to see the patient once i and d done and cx available then will decide on abx this patient is quite immunocompromised
[2017-03-13] MEDS: CLINDAMYCIN 600MG PREMIX IVPB 50 ML IVPB SCH ×2 (18:00→19:47)
[2017-03-13] MEDS: PIPERACILLIN/TAZOB 2.25 GM 50 ML IVPB SCH (18:28)
[2017-03-13] MEDS ORDERED: INSULIN (NOVOLOG) ASPART 100 UNITS/ML 10ML VIAL ONE (21:00)
[2017-03-13] MEDS: hydrALAZINE HCL 10 MG TABLET PO SCH (21:50)
[2017-03-13] MEDS: DOCUSATE SODIUM 100 MG CAPSULE (FP) PO SCH (21:51)
[2017-03-13] MEDS: INSULIN DETEMIR 100 UNITS/ML MDV SQ SCH (21:52)
[2017-03-13] MEDS: PREGABALIN 50 MG CAPSULE PO SCH (21:53)
[2017-03-13] MEDS: INSULIN SLIDING SCALE (NOVOLOG) 1 VIAL SQ SCH (21:54)
[2017-03-13] MEDS: MAGNESIUM OXIDE 400 MG TABLET (FP) PO SCH (21:54)
[2017-03-13] MEDS: TEMAZEPAM 15 MG CAPSULE PO SCH (21:55)
[2017-03-13] MEDS: BUDESONIDE/FORMETEROL FUMARATE 160/4.5 mcg INHALER IH SCH (21:56)
[2017-03-13] MEDS: ACLIDINIUM BROMIDE 400 MCG/INH AERO.POWD IH SCH (21:57)
[2017-03-13] MEDS ORDERED: TEMAZEPAM 15 MG CAPSULE PO SCH (22:00)
[2017-03-13] MEDS: ZOLPIDEM TARTRATE 5 MG TABLET PO PRN (22:03)
[2017-03-13 23:10] VITALS: BMI 28.8
[2017-03-13] MEDS: ALBUTEROL SO4 0.083% IH SOL 2.5 MG/3 ML VIAL.NEB. NEB SCH (23:34)
[2017-03-14] MEDS: oxyCODONE HCL 5 MG TABLET PO PRN ×4 (00:21→19:44)
[2017-03-14] MEDS: CLINDAMYCIN 600MG PREMIX IVPB 50 ML IVPB SCH ×3 (02:17→17:10)
[2017-03-14] MEDS: PIPERACILLIN/TAZOB 2.25 GM 50 ML IVPB SCH ×3 (02:18→17:07)
[2017-03-14] MEDS: INSULIN DETEMIR 100 UNITS/ML MDV SQ SCH ×2 (06:14→21:39)
[2017-03-14] MEDS: INSULIN SLIDING SCALE (NOVOLOG) 1 VIAL SQ SCH ×4 (06:15→21:44)
[2017-03-14] MEDS ORDERED: INSULIN (NOVOLOG) ASPART 100 UNITS/ML 10ML VIAL ONE ×2 (06:51→20:26)
[2017-03-14] MEDS ORDERED: INSULIN DETEMIR 100 UNITS/ML MDV SQ ONE ×2 (06:51→06:53)
[2017-03-14] MEDS ORDERED: PT OWN MED DRAWER 7, Y5N ONE ×5 (06:52→20:27)
[2017-03-14] MEDS: ALBUTEROL SO4 0.083% IH SOL 2.5 MG/3 ML VIAL.NEB. NEB SCH ×4 (06:57→23:40)
[2017-03-14 08:26] LABS: MCHC 32.4 g/dl (32.0-35.9); MEAN CELL VOLUME 86.6 fl (80-96); MEAN PLT VOLUME 7.8 fl (7.5-11.1); PLATELET COUNT 410 K/MM3 (134-434); RDW 17.1 % (11.9-15.9); WHITE BLOOD COUNT 19.3 K/mm3 (4.0-10.0)
[2017-03-14 08:51] LABS: CALCIUM 8.6 mg/dL (8.5-10.1); COCKROFT - GAULT 56.62; CREATININE 1.5 mg/dL (0.7-1.3); MAGNESIUM 1.8 mg/dL (1.8-2.4); PHOSPHOROUS 2.6 mg/dL (2.5-4.9)
[2017-03-14] MEDS: DOCUSATE SODIUM 100 MG CAPSULE (FP) PO SCH ×2 (09:33→21:38)
[2017-03-14] MEDS: ASPIRIN COATED 81 MG TABLET.EC PO SCH (09:34)
[2017-03-14] MEDS: COLLAGENASE CLOSTRIDIUM HIST. 30 GRAMS TUBE TP SCH (09:34)
[2017-03-14] MEDS: PREGABALIN 50 MG CAPSULE PO SCH ×2 (09:34→21:40)
[2017-03-14] MEDS: METOPROLOL TARTRATE 50 MG TABLET (FP) PO SCH (09:34)
[2017-03-14] MEDS: hydrALAZINE HCL 10 MG TABLET PO SCH ×2 (09:34→21:38)
[2017-03-14] MEDS: MAGNESIUM OXIDE 400 MG TABLET (FP) PO SCH ×2 (09:34→21:41)
[2017-03-14] MEDS: CLOPIDOGREL BISULFATE 75 MG TABLET (FP) PO SCH (09:34)
[2017-03-14] MEDS: FUROSEMIDE 40 MG TABLET (FP) PO SCH (09:34)
[2017-03-14] MEDS: ACLIDINIUM BROMIDE 400 MCG/INH AERO.POWD IH SCH ×2 (09:35→21:42)
[2017-03-14] MEDS: BUDESONIDE/FORMETEROL FUMARATE 160/4.5 mcg INHALER IH SCH ×2 (09:35→21:41)
[2017-03-14 11:38] LABS: PLATELET ESTIMATE ADEQUATE (NORMAL)
--- NOTE | 2017-03-14 15:22 | PN ---
Progress Note, Physician Chief Complaint: Mr Scott complains of chronic pain. No cp, sob, n/v. - Current Medication List Current Medications: Active Medications Acetaminophen (Tylenol -) 650 mg PO Q4H PRN PRN Reason: FEVER OR PAIN Aclidinium [place] (Tudorza -) 1 puff IH BID [facility] Last Admin: 03/14/17 09:35 Dose: 1 puff Albuterol Sulfate (Ventolin 0.083% Nebulizer Soln -) 1 amp NEB QIDR [facility] Last Admin: 03/14/17 11:25 Dose: 1 amp Aspirin (Ecotrin -) 81 mg PO DAILY [facility] Last Admin: 03/14/17 09:34 Dose: 81 mg Budesonide/Formoterol Fumarate (Symbicort 160/4.5mcg -) 2 puff IH BID [facility] Last Admin: 03/14/17 09:35 Dose: 2 pfu Clopidogrel Bisulfate (Plavix -) 75 mg PO DAILY [facility] Last Admin: 03/14/17 09:34 Dose: 75 mg Collagenase (Santyl -) 1 applic TP DAILY [facility] Last Admin: 03/14/17 09:34 Dose: 1 applic Docusate Sodium (Colace -) 100 mg PO BID [facility] Last Admin: 03/14/17 09:33 Dose: 100 mg Furosemide (Lasix -) 80 mg PO DAILY [facility] Last Admin: 03/14/17 09:34 Dose: 80 mg Hydralazine HCl (Apresoline -) 10 mg PO BID [facility] Last Admin: 03/14/17 09:34 Dose: 10 mg Clindamycin Phosphate (Cleocin 600 Mg Premix Ivpb -) 50 mls @ 100 mls/hr IVPB Q8H-IV [facility] Last Admin: 03/14/17 09:33 Dose: 100 mls/hr Piperacillin Sod/Tazobactam Sod (Zosyn 2.25gm Ivpb (Pre-Docked)) 50 mls @ 100 mls/hr IVPB Q8H-IV [facility] PRN Reason: Protocol Last Admin: 03/14/17 09:36 Dose: 100 mls/hr Insulin Aspart (Novolog Vial Sliding Scale -) 1 vial SQ ACHS [facility] PRN Reason: Protocol Last Admin: 03/14/17 11:53 Dose: Not Given Insulin Detemir (Levemir Vial) 50 units SQ HS [facility] Last Admin: 03/13/17 21:52 Dose: 50 units Insulin Detemir (Levemir Vial) 100 units SQ AM [facility] Last Admin: 03/14/17 06:14 Dose: 100 units Magnesium Oxide (Mag-Ox -) 400 mg PO BID [facility] Last Admin: 03/14/17 09:34 Dose: 400 mg Metoprolol Tartrate (Lopressor -) 50 mg PO DAILY [facility] Last Admin: 03/14/17 09:34 Dose: 50 mg Non-Formulary Medication (Lansoprazole [Prevacid]) 30 mg PO DAILY [facility] Ondansetron HCl (Zofran Injection) 4 mg IVPB Q6H PRN PRN Reason: NAUSEA Oxycodone HCl (Roxicodone -) 10 mg PO Q4H PRN PRN Reason: PAIN Last Admin: 03/14/17 10:08 Dose: 10 mg Polyethylene Glycol (Miralax (For Daily Use) -) 17 gm PO BID PRN PRN Reason: CONSTIPATION Pregabalin (Lyrica -) 50 mg PO BID [facility] Last Admin: 03/14/17 09:34 Dose: 50 mg Temazepam (Restoril -) 30 mg PO HS [facility] Last Admin: 03/13/17 21:55 Dose: 30 mg Zolpidem Tartrate (Ambien -) 5 mg PO HS PRN PRN Reason: sleep Last Admin: 03/13/17 22:03 Dose: 5 mg - Objective Vital Signs: Vital Signs Temperature 99.7 F H 03/14/17 09:00 Pulse Rate 93 H 03/14/17 09:00 Respiratory Rate 20 03/14/17 09:00 Blood Pressure 151/76 03/14/17 09:00 O2 Sat by Pulse Oximetry (%) 94 L 03/14/17 10:00 Constitutional: Yes: Well Nourished, No Distress, Calm Cardiovascular: Yes: Regular Rate and Rhythm. No: Gallop, Murmur, Rub Respiratory: Yes: Regular, CTA Bilaterally. No: Rales, Rhonchi, Wheezes Gastrointestinal: Yes: Normal Bowel Sounds, Soft. No: Distention, Tenderness Extremities: Yes: WNL Edema: No Labs: CBC, BMP 03/14/17 08:00 03/14/17 08:00 Problem List - Problems (1) Perineal abscess Code(s): L02.215 - CUTANEOUS ABSCESS OF PERINEUM (2) Sepsis Code(s): A41.9 - SEPSIS, UNSPECIFIED ORGANISM (3) CAD (coronary artery disease) Code(s): I25.10 - ATHSCL HEART DISEASE OF [place] CORONARY ARTERY W/O ANG PCTRS Qualifiers: (4) CKD (chronic kidney disease) Code(s): N18.9 - CHRONIC KIDNEY DISEASE, UNSPECIFIED Qualifiers: Chronic kidney disease stage: stage 2 (mild) Qualified Code(s): N18.2 - Chronic kidney disease, stage 2 (mild) (5) COPD (chronic obstructive pulmonary disease) Code(s): J44.9 - CHRONIC OBSTRUCTIVE PULMONARY DISEASE, UNSPECIFIED (6) Congestive heart failure (CHF) Code(s): I50.9 - HEART FAILURE, UNSPECIFIED Qualifiers: Congestive heart failure type: systolic Congestive heart failure chronicity: chronic Qualified Code(s): I50.22 - Chronic systolic ( congestive) heart failure (7) Diabetes mellitus Code(s): E11.9 - TYPE 2 DIABETES MELLITUS WITHOUT COMPLICATIONS Qualifiers: Diabetes mellitus type: type 2 Diabetes mellitus complication status: with circulatory complication Diabetes mellitus complication detail: with peripheral angiopathy with gangrene Diabetes mellitus alf insulin use : with intermodal customer service use Qualified Code(s): E11.52 - Type 2 diabetes mellitus with diabetic peripheral angiopathy with gangrene; Z79.4 - ad terminal makeup operator ( current) use of insulin (8) Hypertension Code(s): I10 - ESSENTIAL (PRIMARY) HYPERTENSION (9) Chronic respiratory failure Code(s): J96.10 - CHRONIC RESPIRATORY FAILURE, UNSP W HYPOXIA OR HYPERCAPNIA Qualifiers: Respiratory failure complication: hypoxia Qualified Code(s): J96.11 - Chronic respiratory failure with hypoxia Assessment/Plan (1) Perineal abscess Assessment/Plan: -still with leukocytosis -appreciate ID assistance -awaiting urology evaluation for drainage -continue zosyn, clindamycin added Code(s): L02.215 - CUTANEOUS ABSCESS OF PERINEUM (2) Sepsis Assessment/Plan: -improving -continue antibiotics Code(s): A41.9 - SEPSIS, UNSPECIFIED ORGANISM (3) CAD (coronary artery disease) Assessment/Plan: -quiescent -continue home regimen Code(s): I25.10 - ATHSCL HEART DISEASE OF [place] CORONARY ARTERY W/O ANG PCTRS Qualifiers: (4) CKD (chronic kidney disease) Assessment/Plan: -treat sepsis -improving Code(s): N18.9 - CHRONIC KIDNEY DISEASE, UNSPECIFIED Qualifiers: Chronic kidney disease stage: stage 2 (mild) Qualified Code(s): N18.2 - Chronic kidney disease, stage 2 (mild) (5) COPD (chronic obstructive pulmonary disease) Assessment/Plan: -not in exacerbation -continue oxygen and home regimen Code(s): J44.9 - CHRONIC OBSTRUCTIVE PULMONARY DISEASE, UNSPECIFIED (6) Congestive heart failure (CHF) Assessment/Plan: -continue lasix and blood pressure control Code(s): I50.9 - HEART FAILURE, UNSPECIFIED Qualifiers: Congestive heart failure type: systolic Congestive heart failure chronicity: chronic Qualified Code(s): I50.22 - Chronic systolic ( congestive) heart failure (7) Diabetes mellitus Assessment/Plan: -diabetic diet -continue levemir -FSBS and SSI -wound care consult Code(s): E11.9 - TYPE 2 DIABETES MELLITUS WITHOUT COMPLICATIONS Qualifiers: Diabetes mellitus type: type 2 Diabetes mellitus complication status: with circulatory complication Diabetes mellitus complication detail: with peripheral angiopathy with gangrene Diabetes mellitus intermodal customer service insulin use : with alf use Qualified Code(s): E11.52 - Type 2 diabetes mellitus with diabetic peripheral angiopathy with gangrene; Z79.4 - penitentiary ( current) use of insulin (8) Hypertension Assessment/Plan: -continue metoprolol -monitor Code(s): I10 - ESSENTIAL (PRIMARY) HYPERTENSION (9) Chronic respiratory failure Assessment/Plan: -continue oxygen support Code(s): J96.10 - CHRONIC RESPIRATORY FAILURE, UNSP W HYPOXIA OR HYPERCAPNIA Qualifiers: Respiratory failure complication: hypoxia Qualified Code(s): J96.11 - Chronic respiratory failure with hypoxia
--- NOTE | 2017-03-14 17:10 | CONSULT ---
Consult - Past Medical History SLITTER PROCESSED FILM: Yes: CVA, Peripheral Neuropathy Cardio/Vascular: Yes: CHF, HTN, Hyperlipdemia. No: AFIB Pulmonary: Yes: COPD Gastrointestinal: Yes: Other (Colitis) Renal/: Yes: Renal Inusuff, Other (hyperkalemia) Psych: Yes: Addictions Musculoskeletal: Yes: Other (Lumbar radiculopathy) Endocrine: Yes: Diabetes Mellitus - Past Surgical History Past Surgical History: Yes: Stent - Alcohol/Substance Use Hx Alcohol Use: No History of Substance Use: reports: None - Smoking History Smoking history: Former smoker Have you smoked in the past 12 months: No Aproximately how many cigarettes per day: 30 If you are a former smoker, when did you quit?: 2017 - Social History Usual Living Arrangement: With Spouse ADL: Independent History of Recent Travel: No Home Medications - Allergies Allergies/Adverse Reactions: Allergies Allergy/AdvReac Type Severity Reaction Status Date / Time pantoprazole sodium Allergy Verified 03/13/17 10:59 [From Protonix] - Home Medications Home Medications: Ambulatory Orders Clopidogrel Bisulfate [Plavix -] 75 mg PO DAILY #20 tablet 02/19/14 Aspirin [Ecotrin] 81 mg PO DAILY 04/29/15 Temazepam [Restoril -] 30 mg PO BID 08/24/15 Docusate Sodium [Colace -] 100 mg PO BID capsule 08/26/15 Insulin Aspart [Novolog] 0 unit SQ PRN PRN 01/10/16 Aclidinium [place] [Tudorza -] 1 inh PO BID 08/13/16 Budesonide/Formeterol Fumarate [SYMBICORT 160/4.5mcg -] 2 inh PO BID 08/13/16 Albuterol 0.083% Nebulizer Clarisse [Ventolin 0.083% Nebulizer Soln -] 1 amp NEB QIDR amp 08/14/16 Hydralazine HCl [Apresoline -] 10 mg PO BID #180 tablet 08/14/16 Insulin (Levemir) [Levemir Vial] 50 units SQ HS ml 08/14/16 Polyethylene Glycol 3350 [Miralax 119 gm Btl -] 17 gm PO BID PRN #0 bottle 08/14 Collagenase Clostridium Hist. [Santyl -] 1 applic TP DAILY #1 tube 01/27/17 Magnesium Oxide [Mag-Ox -] 400 mg PO BID #60 tablet 01/27/17 Furosemide [Lasix -] 80 mg PO DAILY 02/21/17 Insulin (Levemir) [Levemir Vial] 100 unit SQ AM 02/21/17 Lansoprazole [Prevacid] 30 mg PO DAILY 03/13/17 Metoprolol Tartrate 50 mg PO DAILY 03/13/17 Pregabalin [Lyrica] 50 mg PO BID 03/13/17 Zolpidem Tartrate [Ambien] 10 mg PO HS PRN 03/13/17 Family Disease History - Family Disease History Family Disease History: Diabetes: Grandparent, Sister (COPD), [place]: Father, Respiratory: Sister, Other: Mother (CVA) Physical Exam Vital Signs: Vital Signs Temperature 99.1 F 03/14/17 16:21 Pulse Rate 71 03/14/17 16:21 Respiratory Rate 20 03/14/17 16:21 Blood Pressure 134/72 03/14/17 16:21 O2 Sat by Pulse Oximetry (%) 94 L 03/14/17 10:00 Labs: CBC, BMP 03/14/17 08:00 03/14/17 08:00 Assessment/Plan Vascular Surgery Mr Scott is a 67 year old gentleman who comes in with a scrotal abscess. He says he has gotten them before but they normally resolve, however he has to have one drained in the past. He notes that it was becoming swollen and painful. He was at hyperbarics today and felt that it was not getting better so came to the ER to have it evaluated. He denies fevers, chills, lightheadedness, dizziness, passing out, chest pain or pressure, shortness of breath, nausea, vomiting, diarrhea, constipation, difficulty or pain on urination, or leg swelling. History Source: Patient Limitations to Obtaining History: No Limitations - Past Medical History SLITTER PROCESSED FILM: Yes: CVA, Peripheral Neuropathy Cardiovascular: Yes: CHF, HTN, Hyperlipdemia. No: AFIB Pulmonary: Yes: COPD Gastrointestinal: Yes: Other (Colitis) Renal/: Yes: Renal Inusuff, Other (hyperkalemia) Psych: Yes: Addictions Musculoskeletal: Yes: Other (Lumbar radiculopathy) Endocrine: Yes: Diabetes Mellitus - Past Surgical History Past Surgical History: Yes: Stent - Smoking History Smoking history: Former smoker PE Head - NC/AT lung - CTA Heart - RRR abd - soft,nt,nd ext - Left 2nd toe gangrene Right great toe gangrene changes. No palpable pulses A/P Bilateral toe gangrene. Recent US performed on march 01. 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 Pt will need angiogram when stable from abscess Awaiting urology darlin Carson DO
[2017-03-14] MEDS: morphine SO4 SUSTAINED ACTING 30 MG TABLET.SA PO SCH (17:13)
[2017-03-14] MEDS: TEMAZEPAM 15 MG CAPSULE PO SCH (21:41)
[2017-03-14] MEDS: ZOLPIDEM TARTRATE 5 MG TABLET PO PRN (21:42)
[2017-03-14] MEDS ORDERED: TEMAZEPAM 30 MG CAPSULE PO SCH (22:00)
--- NOTE | 2017-03-14 22:37 | PN ---
Progress Note, Physician History of Present Illness: patient doing well awaiting for urology - Current Medication List Current Medications: Active Medications Acetaminophen (Tylenol -) 650 mg PO Q4H PRN PRN Reason: FEVER OR PAIN Aclidinium [place] (Tudorza -) 1 puff IH BID [facility] Last Admin: 03/14/17 21:42 Dose: 1 puff Albuterol Sulfate (Ventolin 0.083% Nebulizer Soln -) 1 amp NEB QIDR [facility] Last Admin: 03/14/17 17:29 Dose: Not Given Aspirin (Ecotrin -) 81 mg PO DAILY [facility] Last Admin: 03/14/17 09:34 Dose: 81 mg Budesonide/Formoterol Fumarate (Symbicort 160/4.5mcg -) 2 puff IH BID [facility] Last Admin: 03/14/17 21:41 Dose: 2 pfu Clopidogrel Bisulfate (Plavix -) 75 mg PO DAILY [facility] Last Admin: 03/14/17 09:34 Dose: 75 mg Collagenase (Santyl -) 1 applic TP DAILY [facility] Last Admin: 03/14/17 09:34 Dose: 1 applic Docusate Sodium (Colace -) 100 mg PO BID [facility] Last Admin: 03/14/17 21:38 Dose: 100 mg Furosemide (Lasix -) 80 mg PO DAILY [facility] Last Admin: 03/14/17 09:34 Dose: 80 mg Hydralazine HCl (Apresoline -) 10 mg PO BID [facility] Last Admin: 03/14/17 21:38 Dose: 10 mg Clindamycin Phosphate (Cleocin 600 Mg Premix Ivpb -) 50 mls @ 100 mls/hr IVPB Q8H-IV [facility] Last Admin: 03/14/17 17:10 Dose: 100 mls/hr Piperacillin Sod/Tazobactam Sod (Zosyn 2.25gm Ivpb (Pre-Docked)) 50 mls @ 100 mls/hr IVPB Q8H-IV [facility] PRN Reason: Protocol Last Admin: 03/14/17 17:07 Dose: 100 mls/hr Insulin Aspart (Novolog Vial Sliding Scale -) 1 vial SQ ACHS [facility] PRN Reason: Protocol Last Admin: 03/14/17 21:44 Dose: Not Given Insulin Detemir (Levemir Vial) 50 units SQ [facility] Last Admin: 03/14/17 21:39 Dose: 50 units Insulin Detemir (Levemir Vial) 100 units SQ AM [facility] Last Admin: 03/14/17 06:14 Dose: 100 units Magnesium Oxide (Mag-Ox -) 400 mg PO BID [facility] Last Admin: 03/14/17 21:41 Dose: 400 mg Metoprolol Tartrate (Lopressor -) 50 mg PO DAILY [facility] Last Admin: 03/14/17 09:34 Dose: 50 mg Morphine Sulfate (Ms Contin -) 60 mg PO Q8H [facility] Last Admin: 03/14/17 17:13 Dose: 60 mg Prevacid 30 Mg Capsule - Patient Own Med 30 mg PO DAILY [facility] Ondansetron HCl (Zofran Injection) 4 mg IVPB Q6H PRN PRN Reason: NAUSEA Oxycodone HCl (Roxicodone -) 10 mg PO Q4H PRN PRN Reason: PAIN Last Admin: 03/14/17 19:44 Dose: 10 mg Polyethylene Glycol (Miralax (For Daily Use) -) 17 gm PO BID PRN PRN Reason: CONSTIPATION Pregabalin (Lyrica -) 50 mg PO BID [facility] Last Admin: 03/14/17 21:40 Dose: 50 mg Temazepam (Restoril -) 30 mg PO HS [facility] Last Admin: 03/14/17 21:41 Dose: 30 mg Zolpidem Tartrate (Ambien -) 5 mg PO HS PRN PRN Reason: sleep Last Admin: 03/14/17 21:42 Dose: 5 mg - Objective Vital Signs: Vital Signs Temperature 99.1 F 03/14/17 19:29 Pulse Rate 80 03/14/17 19:29 Respiratory Rate 20 03/14/17 19:29 Blood Pressure 133/70 03/14/17 19:29 O2 Sat by Pulse Oximetry (%) 93 L 03/14/17 20:47 Constitutional: Yes: No Distress, Calm Cardiovascular: Yes: Regular Rate and Rhythm Respiratory: Yes: Regular, CTA Bilaterally Gastrointestinal: Yes: Normal Bowel Sounds, Soft Musculoskeletal: Yes: WNL Extremities: Yes: WNL Neurological: Yes: Alert, Oriented Psychiatric: Yes: Alert Labs: CBC, BMP 03/14/17 08:00 03/14/17 08:00 Assessment/Plan Problem List - Problems (1) Perineal abscess Code(s): L02.215 - CUTANEOUS ABSCESS OF PERINEUM (2) Sepsis Code(s): A41.9 - SEPSIS, UNSPECIFIED ORGANISM (3) CAD (coronary artery disease) Code(s): I25.10 - ATHSCL HEART DISEASE OF [place] CORONARY ARTERY W/O ANG PCTRS Qualifiers: (4) CKD (chronic kidney disease) Code(s): N18.9 - CHRONIC KIDNEY DISEASE, UNSPECIFIED Qualifiers: Chronic kidney disease stage: stage 2 (mild) Qualified Code(s): N18.2 - Chronic kidney disease, stage 2 (mild) (5) COPD (chronic obstructive pulmonary disease) Code(s): J44.9 - CHRONIC OBSTRUCTIVE PULMONARY DISEASE, UNSPECIFIED (6) Congestive heart failure (CHF)l Code(s): I50.9 - HEART FAILURE, UNSPECIFIED Qualifiers: Congestive heart failure type: systolic Congestive heart failure chronicity: chronic Qualified Code(s): I50.22 - Chronic systolic ( congestive) heart failure (7) Diabetes mellitus Code(s): E11.9 - TYPE 2 DIABETES MELLITUS WITHOUT COMPLICATIONS Qualifiers: Diabetes mellitus type: type 2 Diabetes mellitus complication status: with circulatory complication Diabetes mellitus complication detail: with peripheral angiopathy with gangrene Diabetes mellitus vermin exterminator insulin use : with vermin exterminator use Qualified Code(s): E11.52 - Type 2 diabetes mellitus with diabetic peripheral angiopathy with gangrene; Z79.4 - custodial ( current) use of insulin (8) Hypertension Code(s): I10 - ESSENTIAL (PRIMARY) HYPERTENSION (9) Chronic respiratory failure Code(s): J96.10 - CHRNIC RESPIRATORY FAILURE, UNSP W HYPOXIA OR HYPERCAPNIA Qualifiers: Respiratory failure complication: hypoxia Qualified Code(s): J96.11 - Chronic respiratory failure with hypoxia plan continue abx awaiting for urology vascular note noted rest as per primary
[2017-03-15] MEDS: morphine SO4 SUSTAINED ACTING 30 MG TABLET.SA PO SCH ×3 (00:46→16:51)
[2017-03-15] MEDS: oxyCODONE HCL 5 MG TABLET PO PRN ×4 (02:21→16:50)
[2017-03-15] MEDS: CLINDAMYCIN 600MG PREMIX IVPB 50 ML IVPB SCH ×3 (02:22→17:10)
[2017-03-15] MEDS: PIPERACILLIN/TAZOB 2.25 GM 50 ML IVPB SCH ×3 (02:22→17:35)
[2017-03-15] MEDS: ACETAMINOPHEN 325 MG TABLET (FP) PO PRN ×3 (05:20→21:32)
[2017-03-15] MEDS: INSULIN DETEMIR 100 UNITS/ML MDV SQ SCH ×2 (07:01→21:33)
[2017-03-15] MEDS: INSULIN SLIDING SCALE (NOVOLOG) 1 VIAL SQ SCH ×4 (07:02→21:15)
[2017-03-15] MEDS ORDERED: INSULIN (NOVOLOG MIX 70/30) 100 UNITS/ML MDV SQ ONE (07:14)
[2017-03-15] MEDS ORDERED: INSULIN (NOVOLOG) ASPART 100 UNITS/ML 10ML VIAL ONE (07:14)
[2017-03-15] MEDS ORDERED: INSULIN DETEMIR 100 UNITS/ML MDV SQ ONE (07:14)
[2017-03-15] MEDS ORDERED: PT OWN MED DRAWER 7, Y5N ONE ×2 (07:15→17:51)
[2017-03-15] MEDS: ALBUTEROL SO4 0.083% IH SOL 2.5 MG/3 ML VIAL.NEB. NEB SCH ×3 (07:21→19:09)
[2017-03-15] MEDS: PREGABALIN 50 MG CAPSULE PO SCH ×2 (10:04→21:08)
[2017-03-15] MEDS: DOCUSATE SODIUM 100 MG CAPSULE (FP) PO SCH ×2 (10:04→21:08)
[2017-03-15] MEDS: ASPIRIN COATED 81 MG TABLET.EC PO SCH (10:04)
[2017-03-15] MEDS: FUROSEMIDE 40 MG TABLET (FP) PO SCH (10:04)
[2017-03-15] MEDS: CLOPIDOGREL BISULFATE 75 MG TABLET (FP) PO SCH (10:04)
[2017-03-15] MEDS: MAGNESIUM OXIDE 400 MG TABLET (FP) PO SCH ×2 (10:04→21:08)
[2017-03-15] MEDS: METOPROLOL TARTRATE 50 MG TABLET (FP) PO SCH (10:04)
[2017-03-15] MEDS: hydrALAZINE HCL 10 MG TABLET PO SCH ×2 (10:04→21:07)
[2017-03-15] MEDS: PREVACID 30 MG PO SCH (10:04)
[2017-03-15] MEDS: ACLIDINIUM BROMIDE 400 MCG/INH AERO.POWD IH SCH ×2 (10:10→21:34)
[2017-03-15] MEDS: BUDESONIDE/FORMETEROL FUMARATE 160/4.5 mcg INHALER IH SCH ×2 (10:10→21:34)
--- NOTE | 2017-03-15 12:21 | PN ---
Progress Note, Physician History of Present Illness: patient doing well awaiting for urology no complains of pain today' in the room - Current Medication List Current Medications: Active Medications Acetaminophen (Tylenol -) 650 mg PO Q4H PRN PRN Reason: FEVER OR PAIN Last Admin: 03/15/17 05:20 Dose: 650 mg Aclidinium [place] (Tudorza -) 1 puff IH BID [facility] Last Admin: 03/15/17 10:10 Dose: 1 puff Albuterol Sulfate (Ventolin 0.083% Nebulizer Soln -) 1 amp NEB QIDR [facility] Last Admin: 03/15/17 12:07 Dose: 1 amp Aspirin (Ecotrin -) 81 mg PO DAILY [facility] Last Admin: 03/15/17 10:04 Dose: 81 mg Budesonide/Formoterol Fumarate (Symbicort 160/4.5mcg -) 2 puff IH BID [facility] Last Admin: 03/15/17 10:10 Dose: 2 pfu Clopidogrel Bisulfate (Plavix -) 75 mg PO DAILY [facility] Last Admin: 03/15/17 10:04 Dose: 75 mg Collagenase (Santyl -) 1 applic TP DAILY [facility] Last Admin: 03/14/17 09:34 Dose: 1 applic Docusate Sodium (Colace -) 100 mg PO BID [facility] Last Admin: 03/15/17 10:04 Dose: 100 mg Furosemide (Lasix -) 80 mg PO DAILY [facility] Last Admin: 03/15/17 10:04 Dose: 80 mg Hydralazine HCl (Apresoline -) 10 mg PO BID [facility] Last Admin: 03/15/17 10:04 Dose: 10 mg Clindamycin Phosphate (Cleocin 600 Mg Premix Ivpb -) 50 mls @ 100 mls/hr IVPB Q8H-IV [facility] Last Admin: 03/15/17 10:10 Dose: 100 mls/hr Piperacillin Sod/Tazobactam Sod (Zosyn 2.25gm Ivpb (Pre-Docked)) 50 mls @ 100 mls/hr IVPB Q8H-IV [facility] PRN Reason: Protocol Last Admin: 03/15/17 09:54 Dose: 100 mls/hr Insulin Aspart (Novolog Vial Sliding Scale -) 1 vial SQ ACHS [facility] PRN Reason: Protocol Last Admin: 03/15/17 11:59 Dose: 4 units Insulin Detemir (Levemir Vial) 50 units SQ HS [facility] Last Admin: 03/14/17 21:39 Dose: 50 units Insulin Detemir (Levemir Vial) 100 units SQ AM [facility] Last Admin: 03/15/17 07:01 Dose: 100 units Magnesium Oxide (Mag-Ox -) 400 mg PO BID [facility] Last Admin: 03/15/17 10:04 Dose: 400 mg Metoprolol Tartrate (Lopressor -) 50 mg PO DAILY [facility] Last Admin: 03/15/17 10:04 Dose: 50 mg Morphine Sulfate (Ms Contin -) 60 mg PO Q8H [facility] Last Admin: 03/15/17 08:29 Dose: 60 mg Prevacid 30 Mg Capsule - Patient Own Med 30 mg PO DAILY [facility] Last Admin: 03/15/17 10:04 Dose: 30 mg Ondansetron HCl (Zofran Injection) 4 mg IVPB Q6H PRN PRN Reason: NAUSEA Oxycodone HCl (Roxicodone -) 10 mg PO Q4H PRN PRN Reason: PAIN Last Admin: 03/15/17 07:01 Dose: 10 mg Polyethylene Glycol (Miralax (For Daily Use) -) 17 gm PO BID PRN PRN Reason: CONSTIPATION Pregabalin (Lyrica -) 50 mg PO BID [facility] Last Admin: 03/15/17 10:04 Dose: 50 mg Temazepam (Restoril -) 30 mg PO HS [facility] Last Admin: 03/14/17 21:41 Dose: 30 mg Zolpidem Tartrate (Ambien -) 5 mg PO HS PRN PRN Reason: sleep Last Admin: 03/14/17 21:42 Dose: 5 mg - Objective Vital Signs: Vital Signs Temperature 98.7 F 03/15/17 07:18 Pulse Rate 85 03/15/17 07:18 Respiratory Rate 20 03/15/17 07:18 Blood Pressure 138/71 03/15/17 07:18 O2 Sat by Pulse Oximetry (%) 93 L 03/14/17 20:47 Constitutional: Yes: No Distress, Calm Cardiovascular: Yes: S1, S2 Gastrointestinal: Yes: Normal Bowel Sounds, Soft Musculoskeletal: Yes: Other Extremities: Yes: Other Neurological: Yes: Alert, Oriented Psychiatric: Yes: Alert Labs: CBC, BMP 03/14/17 08:00 03/14/17 08:00 Assessment/Plan Problem List - Problems (1) Perineal abscess Code(s): L02.215 - CUTANEOUS ABSCESS OF PERINEUM (2) Sepsis Code(s): A41.9 - SEPSIS, UNSPECIFIED ORGANISM (3) CAD (coronary artery disease) Code(s): I25.10 - ATHSCL HEART DISEASE OF [place] CORONARY ARTERY W/O ANG PCTRS Qualifiers: (4) CKD (chronic kidney disease) Code(s): N18.9 - CHRONIC KIDNEY DISEASE, UNSPECIFIED Qualifiers: Chronic kidney disease stage: stage 2 (mild) Qualified Code(s): N18.2 - Chronic kidney disease, stage 2 (mild) (5) COPD (chronic obstructive pulmonary disease) Code(s): J44.9 - CHRONIC OBSTRUCTIVE PULMONARY DISEASE, UNSPECIFIED (6) Congestive heart failure (CHF)l Code(s): I50.9 - HEART FAILURE, UNSPECIFIED Qualifiers: Congestive heart failure type: systolic Congestive heart failure chronicity: chronic Qualified Code(s): I50.22 - Chronic systolic ( congestive) heart failure (7) Diabetes mellitus Code(s): E11.9 - TYPE 2 DIABETES MELLITUS WITHOUT COMPLICATIONS Qualifiers: Diabetes mellitus type: type 2 Diabetes mellitus complication status: with circulatory complication Diabetes mellitus complication detail: with peripheral angiopathy with gangrene Diabetes mellitus multimedia production assistant insulin use : with multimedia production assistant use Qualified Code(s): E11.52 - Type 2 diabetes mellitus with diabetic peripheral angiopathy with gangrene; Z79.4 - halfway ( current) use of insulin (8) Hypertension Code(s): I10 - ESSENTIAL (PRIMARY) HYPERTENSION (9) Chronic respiratory failure Code(s): J96.10 - CHRNIC RESPIRATORY FAILURE, UNSP W HYPOXIA OR HYPERCAPNIA Qualifiers: Respiratory failure complication: hypoxia Qualified Code(s): J96.11 - Chronic respiratory failure with hypoxia plan continue abx awaiting for urology vascular note noted rest as per primary
[2017-03-15 13:08] LABS: MCH 27.8 pg (25.7-33.7); MCHC 32.3 g/dl (32.0-35.9); MEAN PLT VOLUME 7.6 fl (7.5-11.1); PLATELET COUNT 393 K/MM3 (134-434); RDW 18.2 % (11.9-15.9)
[2017-03-15] MEDS ORDERED: LIDOCAINE HCL 1%, 10 MG/ML (20ML VIAL) ONE (13:13)
--- NOTE | 2017-03-15 14:02 | PN ---
Progress Note, Physician Chief Complaint: Mr Scott says he is feeling better, pain is controlled. no cp, sob, n/v. - Current Medication List Current Medications: Active Medications Acetaminophen (Tylenol -) 650 mg PO Q4H PRN PRN Reason: FEVER OR PAIN Last Admin: 03/15/17 05:20 Dose: 650 mg Aclidinium [place] (Tudorza -) 1 puff IH BID [facility] Last Admin: 03/15/17 10:10 Dose: 1 puff Albuterol Sulfate (Ventolin 0.083% Nebulizer Soln -) 1 amp NEB QIDR [facility] Last Admin: 03/15/17 12:07 Dose: 1 amp Aspirin (Ecotrin -) 81 mg PO DAILY [facility] Last Admin: 03/15/17 10:04 Dose: 81 mg Budesonide/Formoterol Fumarate (Symbicort 160/4.5mcg -) 2 puff IH BID [facility] Last Admin: 03/15/17 10:10 Dose: 2 pfu Clopidogrel Bisulfate (Plavix -) 75 mg PO DAILY [facility] Last Admin: 03/15/17 10:04 Dose: 75 mg Collagenase (Santyl -) 1 applic TP DAILY [facility] Last Admin: 03/14/17 09:34 Dose: 1 applic Docusate Sodium (Colace -) 100 mg PO BID [facility] Last Admin: 03/15/17 10:04 Dose: 100 mg Furosemide (Lasix -) 80 mg PO DAILY [facility] Last Admin: 03/15/17 10:04 Dose: 80 mg Hydralazine HCl (Apresoline -) 10 mg PO BID [facility] Last Admin: 03/15/17 10:04 Dose: 10 mg Clindamycin Phosphate (Cleocin 600 Mg Premix Ivpb -) 50 mls @ 100 mls/hr IVPB Q8H-IV [facility] Last Admin: 03/15/17 10:10 Dose: 100 mls/hr Piperacillin Sod/Tazobactam Sod (Zosyn 2.25gm Ivpb (Pre-Docked)) 50 mls @ 100 mls/hr IVPB Q8H-IV [facility] PRN Reason: Protocol Last Admin: 03/15/17 09:54 Dose: 100 mls/hr Insulin Aspart (Novolog Vial Sliding Scale -) 1 vial SQ ACHS [facility] PRN Reason: Protocol Last Admin: 03/15/17 11:59 Dose: 4 units Insulin Detemir (Levemir Vial) 50 units SQ HS [facility] Last Admin: 03/14/17 21:39 Dose: 50 units Insulin Detemir (Levemir Vial) 100 units SQ AM [facility] Last Admin: 03/15/17 07:01 Dose: 100 units Magnesium Oxide (Mag-Ox -) 400 mg PO BID [facility] Last Admin: 03/15/17 10:04 Dose: 400 mg Metoprolol Tartrate (Lopressor -) 50 mg PO DAILY [facility] Last Admin: 03/15/17 10:04 Dose: 50 mg Morphine Sulfate (Ms Contin -) 60 mg PO Q8H [facility] Last Admin: 03/15/17 08:29 Dose: 60 mg Prevacid 30 Mg Capsule - Patient Own Med 30 mg PO DAILY [facility] Last Admin: 03/15/17 10:04 Dose: 30 mg Ondansetron HCl (Zofran Injection) 4 mg IVPB Q6H PRN PRN Reason: NAUSEA Oxycodone HCl (Roxicodone -) 10 mg PO Q4H PRN PRN Reason: PAIN Last Admin: 03/15/17 12:25 Dose: 10 mg Polyethylene Glycol (Miralax (For Daily Use) -) 17 gm PO BID PRN PRN Reason: CONSTIPATION Pregabalin (Lyrica -) 50 mg PO BID [facility] Last Admin: 03/15/17 10:04 Dose: 50 mg Temazepam (Restoril -) 30 mg PO HS [facility] Last Admin: 03/14/17 21:41 Dose: 30 mg Zolpidem Tartrate (Ambien -) 5 mg PO HS PRN PRN Reason: sleep Last Admin: 03/14/17 21:42 Dose: 5 mg - Objective Vital Signs: Vital Signs Temperature 98.7 F 03/15/17 07:18 Pulse Rate 96 H 03/15/17 10:00 Respiratory Rate 20 03/15/17 10:00 Blood Pressure 146/72 03/15/17 10:00 O2 Sat by Pulse Oximetry (%) 93 L 03/14/17 20:47 Constitutional: Yes: Well Nourished, No Distress, Calm Cardiovascular: Yes: Regular Rate and Rhythm. No: Gallop, Murmur, Rub Respiratory: Yes: Regular, CTA Bilaterally. No: Rales, Rhonchi, Wheezes Gastrointestinal: Yes: Normal Bowel Sounds, Soft. No: Distention, Tenderness Extremities: Yes: WNL Edema: No Labs: CBC, BMP 03/15/17 12:45 03/14/17 08:00 Problem List - Problems (1) Perineal abscess Code(s): L02.215 - CUTANEOUS ABSCESS OF PERINEUM (2) Sepsis Code(s): A41.9 - SEPSIS, UNSPECIFIED ORGANISM (3) CAD (coronary artery disease) Code(s): I25.10 - ATHSCL HEART DISEASE OF [place] CORONARY ARTERY W/O ANG PCTRS Qualifiers: (4) CKD (chronic kidney disease) Code(s): N18.9 - CHRONIC KIDNEY DISEASE, UNSPECIFIED Qualifiers: Chronic kidney disease stage: stage 2 (mild) Qualified Code(s): N18.2 - Chronic kidney disease, stage 2 (mild) (5) COPD (chronic obstructive pulmonary disease) Code(s): J44.9 - CHRONIC OBSTRUCTIVE PULMONARY DISEASE, UNSPECIFIED (6) Congestive heart failure (CHF) Code(s): I50.9 - HEART FAILURE, UNSPECIFIED Qualifiers: Congestive heart failure type: systolic Congestive heart failure chronicity: chronic Qualified Code(s): I50.22 - Chronic systolic ( congestive) heart failure (7) Diabetes mellitus Code(s): E11.9 - TYPE 2 DIABETES MELLITUS WITHOUT COMPLICATIONS Qualifiers: Diabetes mellitus type: type 2 Diabetes mellitus complication status: with circulatory complication Diabetes mellitus complication detail: with peripheral angiopathy with gangrene Diabetes mellitus watermelon harvesting supervisor insulin use : with mcc use Qualified Code(s): E11.52 - Type 2 diabetes mellitus with diabetic peripheral angiopathy with gangrene; Z79.4 - watermelon harvesting supervisor ( current) use of insulin (8) Hypertension Code(s): I10 - ESSENTIAL (PRIMARY) HYPERTENSION (9) Chronic respiratory failure Code(s): J96.10 - CHRONIC RESPIRATORY FAILURE, UNSP W HYPOXIA OR HYPERCAPNIA Qualifiers: Respiratory failure complication: hypoxia Qualified Code(s): J96.11 - Chronic respiratory failure with hypoxia Assessment/Plan (1) Perineal abscess Assessment/Plan: -leukocytosis improving -continue clindamycin and zosyn -urology to see and perform I&D Code(s): L02.215 - CUTANEOUS ABSCESS OF PERINEUM (2) Sepsis Assessment/Plan: -improving -continue antibiotics Code(s): A41.9 - SEPSIS, UNSPECIFIED ORGANISM (3) CAD (coronary artery disease) Assessment/Plan: -quiescent -continue home regimen Code(s): I25.10 - ATHSCL HEART DISEASE OF [place] CORONARY ARTERY W/O ANG PCTRS Qualifiers: (4) CKD (chronic kidney disease) Assessment/Plan: -treat sepsis -improving Code(s): N18.9 - CHRONIC KIDNEY DISEASE, UNSPECIFIED Qualifiers: Chronic kidney disease stage: stage 2 (mild) Qualified Code(s): N18.2 - Chronic kidney disease, stage 2 (mild) (5) COPD (chronic obstructive pulmonary disease) Assessment/Plan: -not in exacerbation -continue oxygen and home regimen Code(s): J44.9 - CHRONIC OBSTRUCTIVE PULMONARY DISEASE, UNSPECIFIED (6) Congestive heart failure (CHF) Assessment/Plan: -continue lasix and blood pressure control Code(s): I50.9 - HEART FAILURE, UNSPECIFIED Qualifiers: Congestive heart failure type: systolic Congestive heart failure chronicity: chronic Qualified Code(s): I50.22 - Chronic systolic ( congestive) heart failure (7) Diabetes mellitus Assessment/Plan: -diabetic diet -continue levemir -FSBS and SSI -wound care consulted and appreciate assistance Code(s): E11.9 - TYPE 2 DIABETES MELLITUS WITHOUT COMPLICATIONS Qualifiers: Diabetes mellitus type: type 2 Diabetes mellitus complication status: with circulatory complication Diabetes mellitus complication detail: with peripheral angiopathy with gangrene Diabetes mellitus watermelon harvesting supervisor insulin use : with watermelon harvesting supervisor use Qualified Code(s): E11.52 - Type 2 diabetes mellitus with diabetic peripheral angiopathy with gangrene; Z79.4 - shelter ( current) use of insulin (8) Hypertension Assessment/Plan: -continue metoprolol -monitor Code(s): I10 - ESSENTIAL (PRIMARY) HYPERTENSION (9) Chronic respiratory failure Assessment/Plan: -continue oxygen support Code(s): J96.10 - CHRONIC RESPIRATORY FAILURE, UNSP W HYPOXIA OR HYPERCAPNIA Qualifiers: Respiratory failure complication: hypoxia Qualified Code(s): J96.11 - Chronic respiratory failure with hypoxia
--- NOTE | 2017-03-15 14:37 | OP ---
DATE OF OPERATION: 03/15/2017 SURGEON: Kirt Ortega MD PREOPERATIVE DIAGNOSIS: Left scrotal perineal abscess. POSTOPERATIVE DIAGNOSIS: Left scrotal perineal abscess. OPERATIVE PROCEDURE: Incision and drainage of abscess. ANESTHESIA: Local. DESCRIPTION OF PROCEDURE: Under above stated anesthesia, patient was prepped and draped in the usual sterile manner. He was placed in the dorsal lithotomy position. The abscess was located in the left scrotal perineal region, and it measured 6 cm. It was fluctuant and tender. The area above the abscess was infiltrated with 10 mL of 1% lidocaine. Afterwards, a 2-cm vertical incision was made. Several teaspoons of pus were drained. Cultures of the pus were taken. A digit finger was then inserted into the abscess sac and deloculation was performed. Peroxide was also injected, and debris was washed out. No active bleeding was noted. Using 0.5-inch Iodoform gauze, the abscess sac was packed. A sliver of the packing was left outside. The area was dressed. The scrotum was kept elevated. Will discontinue packing in a.m. and commence sitz bath. Jl [id number]
--- NOTE | 2017-03-15 16:10 | CONS ---
DATE OF CONSULTATION: DATE OF DICTATION: 03/14/2017 HISTORY OF PRESENT ILLNESS: Patient is a 67-year-old male admitted via the emergency room on 03/13/2017. He has a past history of CVA, COPD, on home oxygen. He also has a history of diabetes, chronic kidney disease. He has coronary artery disease. He is status post 5 coronary stents. He is also status post myocardial infarction and ischemic cardiomyopathy. He developed congestive heart failure. He does have an extensive smoking history. The patient presented to the emergency room with weakness, fever and a scrotal abscess. Patient also complains that the abscess is increased in size and tenderness. He was recently treated with IV antibiotics for a skin infection last month. Presently, he denies any antibiotic use. He also complains of shortness of breath and generalized weakness. As stated, he has undergone multiple coronary stents in the past. He has had a CVA in 2014 with no deficits. He does have a history of COPD, diabetes and congestive heart failure. He also has history of colitis with chronic constipation. He does have prostatism with nocturia, frequency and urgency. Also, patient has history of kidney stones. He has had multiple episodes of sepsis. In the emergency room he was found to have a temperature of 100.4, blood pressure 140/68. ALLERGIES: The patient does have an allergy PROTONIX. CURRENT MEDICATIONS: He is on multiple medications including Plavix, Ecotrin and Restoril, Colace, insulin, Symbicort, Ventolin, Apresoline, Lasix, Prevacid, metoprolol, Lyrica and Ambien. LABS: BUN and creatinine were 54/1.9. Random glucose was 201. His white count is 21,200. Hemoglobin/hematocrit was 10.7/33.9. Platelets were 434. An ultrasound of the scrotum was ordered, and this revealed a small left hydrocele with scrotal calcifications. Patient had a blood culture, which revealed no growth after 48 hours. PHYSICAL EXAM: Physical exam revealed a soft globus abdomen. Phallus is circumcised and normal. Scrotum and testes are nontender, and no swelling is noted. There was a tender 6-cm lesion below the left hemiscrotum between the scrotal sac and the perineum. This was tender to palpation and appeared to be an abscess. A rectal exam revealed a 2+ nontender prostate. IMPRESSION AT PRESENT: Scrotal perineal abscess in a diabetic male. PLAN: Will perform an incision and drainage of abscess on the next day. Jl [id number]
[2017-03-15] MEDS: COLLAGENASE CLOSTRIDIUM HIST. 30 GRAMS TUBE TP SCH (16:52)
[2017-03-15 18:37] LABS: HYPOCHROMIA 1+; PLATELET ESTIMATE INCREASED (NORMAL)
[2017-03-15 18:38] LABS: ANISOCYTOSIS 1+; MICROCYTOSIS 1+
[2017-03-15] MEDS: TEMAZEPAM 15 MG CAPSULE PO SCH (21:07)
[2017-03-16] MEDS: ALBUTEROL SO4 0.083% IH SOL 2.5 MG/3 ML VIAL.NEB. NEB SCH ×4 (00:05→17:47)
[2017-03-16] MEDS: morphine SO4 SUSTAINED ACTING 30 MG TABLET.SA PO SCH ×3 (02:37→16:55)
[2017-03-16] MEDS: CLINDAMYCIN 600MG PREMIX IVPB 50 ML IVPB SCH ×2 (02:37→11:01)
[2017-03-16] MEDS: ZOLPIDEM TARTRATE 5 MG TABLET PO PRN (03:35)
[2017-03-16] MEDS: PIPERACILLIN/TAZOB 2.25 GM 50 ML IVPB SCH ×3 (03:36→18:05)
[2017-03-16] MEDS: INSULIN DETEMIR 100 UNITS/ML MDV SQ SCH ×2 (06:18→21:15)
[2017-03-16] MEDS: INSULIN SLIDING SCALE (NOVOLOG) 1 VIAL SQ SCH ×4 (06:19→21:14)
[2017-03-16] MEDS: oxyCODONE HCL 5 MG TABLET PO PRN ×2 (07:02→12:54)
[2017-03-16 08:52] LABS: CALCIUM 8.3 mg/dL (8.5-10.1); COCKROFT - GAULT 60.67; CREATININE 1.4 mg/dL (0.7-1.3); MAGNESIUM 2.2 mg/dL (1.8-2.4)
[2017-03-16 09:03] LABS: MCH 27.7 pg (25.7-33.7); MCHC 32.2 g/dl (32.0-35.9); MEAN CELL VOLUME 85.5 fl (80-96); MEAN PLT VOLUME 7.9 fl (7.5-11.1); PLATELET COUNT 436 K/MM3 (134-434); RDW 17.9 % (11.9-15.9)
[2017-03-16] MEDS: PREVACID 30 MG PO SCH (10:17)
[2017-03-16] MEDS: PREGABALIN 50 MG CAPSULE PO SCH ×2 (10:17→21:10)
[2017-03-16] MEDS: FUROSEMIDE 40 MG TABLET (FP) PO SCH (10:18)
[2017-03-16] MEDS: MAGNESIUM OXIDE 400 MG TABLET (FP) PO SCH ×2 (10:18→21:10)
[2017-03-16] MEDS: ASPIRIN COATED 81 MG TABLET.EC PO SCH (10:18)
[2017-03-16] MEDS: METOPROLOL TARTRATE 50 MG TABLET (FP) PO SCH (10:18)
[2017-03-16] MEDS: hydrALAZINE HCL 10 MG TABLET PO SCH ×2 (10:18→21:10)
[2017-03-16] MEDS: DOCUSATE SODIUM 100 MG CAPSULE (FP) PO SCH ×2 (10:18→21:10)
[2017-03-16] MEDS: CLOPIDOGREL BISULFATE 75 MG TABLET (FP) PO SCH (10:18)
[2017-03-16] MEDS: ACLIDINIUM BROMIDE 400 MCG/INH AERO.POWD IH SCH ×2 (10:19→21:11)
[2017-03-16] MEDS: BUDESONIDE/FORMETEROL FUMARATE 160/4.5 mcg INHALER IH SCH ×2 (10:19→21:11)
[2017-03-16] MEDS: COLLAGENASE CLOSTRIDIUM HIST. 30 GRAMS TUBE TP SCH (10:21)
[2017-03-16] MEDS ORDERED: PT OWN MED DRAWER 7, Y5N ONE (10:32)
[2017-03-16] MEDS: ACETAMINOPHEN 325 MG TABLET (FP) PO PRN ×2 (10:33→21:03)
--- NOTE | 2017-03-16 14:29 | PN ---
Progress Note, Physician History of Present Illness: stable urology i and d the scrotal abscess - Current Medication List Current Medications: Active Medications Acetaminophen (Tylenol -) 650 mg PO Q4H PRN PRN Reason: FEVER OR PAIN Last Admin: 03/16/17 10:33 Dose: 650 mg Aclidinium [place] (Tudorza -) 1 puff IH BID [facility] Last Admin: 03/16/17 10:19 Dose: 1 puff Albuterol Sulfate (Ventolin 0.083% Nebulizer Soln -) 1 amp NEB QIDR [facility] Last Admin: 03/16/17 11:32 Dose: Not Given Aspirin (Ecotrin -) 81 mg PO DAILY [facility] Last Admin: 03/16/17 10:18 Dose: 81 mg Budesonide/Formoterol Fumarate (Symbicort 160/4.5mcg -) 2 puff IH BID [facility] Last Admin: 03/16/17 10:19 Dose: 2 pfu Clopidogrel Bisulfate (Plavix -) 75 mg PO DAILY [facility] Last Admin: 03/16/17 10:18 Dose: 75 mg Collagenase (Santyl -) 1 applic TP DAILY [facility] Last Admin: 03/16/17 10:21 Dose: 1 applic Docusate Sodium (Colace -) 100 mg PO BID [facility] Last Admin: 03/16/17 10:18 Dose: 100 mg Furosemide (Lasix -) 80 mg PO DAILY [facility] Last Admin: 03/16/17 10:18 Dose: 80 mg Hydralazine HCl (Apresoline -) 10 mg PO BID [facility] Last Admin: 03/16/17 10:18 Dose: 10 mg Clindamycin Phosphate (Cleocin 600 Mg Premix Ivpb -) 50 mls @ 100 mls/hr IVPB Q8H-IV [facility] Last Admin: 03/16/17 11:01 Dose: 100 mls/hr Piperacillin Sod/Tazobactam Sod (Zosyn 2.25gm Ivpb (Pre-Docked)) 50 mls @ 100 mls/hr IVPB Q8H-IV [facility] PRN Reason: Protocol Last Admin: 03/16/17 10:20 Dose: 100 mls/hr Insulin Aspart (Novolog Vial Sliding Scale -) 1 vial SQ ACHS [facility] PRN Reason: Protocol Last Admin: 03/16/17 11:48 Dose: Not Given Insulin Detemir (Levemir Vial) 50 units SQ HS [facility] Last Admin: 03/15/17 21:33 Dose: 50 units Insulin Detemir (Levemir Vial) 100 units SQ AM [facility] Last Admin: 03/16/17 06:18 Dose: Not Given Magnesium Oxide (Mag-Ox -) 400 mg PO BID [facility] Last Admin: 03/16/17 10:18 Dose: 400 mg Metoprolol Tartrate (Lopressor -) 50 mg PO DAILY [facility] Last Admin: 03/16/17 10:18 Dose: 50 mg Morphine Sulfate (Ms Contin -) 60 mg PO Q8H [facility] Last Admin: 03/16/17 08:29 Dose: 60 mg Prevacid 30 Mg Capsule - Patient Own Med 30 mg PO DAILY [facility] Last Admin: 03/16/17 10:17 Dose: 30 mg Ondansetron HCl (Zofran Injection) 4 mg IVPB Q6H PRN PRN Reason: NAUSEA Oxycodone HCl (Roxicodone -) 10 mg PO Q4H PRN PRN Reason: PAIN Last Admin: 03/16/17 12:54 Dose: 10 mg Polyethylene Glycol (Miralax (For Daily Use) -) 17 gm PO BID PRN PRN Reason: CONSTIPATION Pregabalin (Lyrica -) 50 mg PO BID [facility] Last Admin: 03/16/17 10:17 Dose: 50 mg Temazepam (Restoril -) 30 mg PO HS [facility] Last Admin: 03/15/17 21:07 Dose: 30 mg Zolpidem Tartrate (Ambien -) 5 mg PO HS PRN PRN Reason: sleep Last Admin: 03/16/17 03:35 Dose: 5 mg - Objective Vital Signs: Vital Signs Temperature 98.5 F 03/16/17 14:05 Pulse Rate 66 03/16/17 14:05 Respiratory Rate 18 03/16/17 14:05 Blood Pressure 136/71 03/16/17 14:05 O2 Sat by Pulse Oximetry (%) 97 03/16/17 12:00 Constitutional: Yes: No Distress, Calm Cardiovascular: Yes: Regular Rate and Rhythm Respiratory: Yes: Regular, CTA Bilaterally Gastrointestinal: Yes: Normal Bowel Sounds, Soft Musculoskeletal: Yes: Other Extremities: Yes: Other Wound/Incision: Yes: Dressing Dry and Intact, Other Neurological: Yes: Alert, Oriented Psychiatric: Yes: Alert, Oriented Labs: CBC, BMP 03/16/17 07:30 03/16/17 07:30 Assessment/Plan Problem List - Problems (1) Perineal abscess Code(s): L02.215 - CUTANEOUS ABSCESS OF PERINEUM (2) Sepsis Code(s): A41.9 - SEPSIS, UNSPECIFIED ORGANISM (3) CAD (coronary artery disease) Code(s): I25.10 - ATHSCL HEART DISEASE OF [place] CORONARY ARTERY W/O ANG PCTRS Qualifiers: (4) CKD (chronic kidney disease) Code(s): N18.9 - CHRONIC KIDNEY DISEASE, UNSPECIFIED Qualifiers: Chronic kidney disease stage: stage 2 (mild) Qualified Code(s): N18.2 - Chronic kidney disease, stage 2 (mild) (5) COPD (chronic obstructive pulmonary disease) Code(s): J44.9 - CHRONIC OBSTRUCTIVE PULMONARY DISEASE, UNSPECIFIED (6) Congestive heart failure (CHF)l Code(s): I50.9 - HEART FAILURE, UNSPECIFIED Qualifiers: Congestive heart failure type: systolic Congestive heart failure chronicity: chronic Qualified Code(s): I50.22 - Chronic systolic ( congestive) heart failure (7) Diabetes mellitus Code(s): E11.9 - TYPE 2 DIABETES MELLITUS WITHOUT COMPLICATIONS Qualifiers: Diabetes mellitus type: type 2 Diabetes mellitus complication status: with circulatory complication Diabetes mellitus complication detail: with peripheral angiopathy with gangrene Diabetes mellitus care home insulin use : with ferry terminal agent use Qualified Code(s): E11.52 - Type 2 diabetes mellitus with diabetic peripheral angiopathy with gangrene; Z79.4 - emt intermediate ( current) use of insulin (8) Hypertension Code(s): I10 - ESSENTIAL (PRIMARY) HYPERTENSION (9) Chronic respiratory failure Code(s): J96.10 - CHRNIC RESPIRATORY FAILURE, UNSP W HYPOXIA OR HYPERCAPNIA Qualifiers: Respiratory failure complication: hypoxia Qualified Code(s): J96.11 - Chronic respiratory failure with hypoxia plan cx result noted await for sensitivities rest as per primary team
[2017-03-16 14:46] LABS: PLATELET ESTIMATE ADEQUATE (NORMAL)
--- NOTE | 2017-03-16 15:28 | PN ---
Progress Note, Physician Chief Complaint: Mr Scott complains of chronic pain that is controlled. No cp, sob, n/v. S/p I&D - Current Medication List Current Medications: Active Medications Acetaminophen (Tylenol -) 650 mg PO Q4H PRN PRN Reason: FEVER OR PAIN Last Admin: 03/16/17 10:33 Dose: 650 mg Aclidinium [place] (Tudorza -) 1 puff IH BID [facility] Last Admin: 03/16/17 10:19 Dose: 1 puff Albuterol Sulfate (Ventolin 0.083% Nebulizer Soln -) 1 amp NEB QIDR [facility] Last Admin: 03/16/17 11:32 Dose: Not Given Aspirin (Ecotrin -) 81 mg PO DAILY [facility] Last Admin: 03/16/17 10:18 Dose: 81 mg Budesonide/Formoterol Fumarate (Symbicort 160/4.5mcg -) 2 puff IH BID [facility] Last Admin: 03/16/17 10:19 Dose: 2 pfu Clopidogrel Bisulfate (Plavix -) 75 mg PO DAILY [facility] Last Admin: 03/16/17 10:18 Dose: 75 mg Collagenase (Santyl -) 1 applic TP DAILY [facility] Last Admin: 03/16/17 10:21 Dose: 1 applic Docusate Sodium (Colace -) 100 mg PO BID [facility] Last Admin: 03/16/17 10:18 Dose: 100 mg Furosemide (Lasix -) 80 mg PO DAILY [facility] Last Admin: 03/16/17 10:18 Dose: 80 mg Hydralazine HCl (Apresoline -) 10 mg PO BID [facility] Last Admin: 03/16/17 10:18 Dose: 10 mg Clindamycin Phosphate (Cleocin 600 Mg Premix Ivpb -) 50 mls @ 100 mls/hr IVPB Q8H-IV [facility] Last Admin: 03/16/17 11:01 Dose: 100 mls/hr Piperacillin Sod/Tazobactam Sod (Zosyn 2.25gm Ivpb (Pre-Docked)) 50 mls @ 100 mls/hr IVPB Q8H-IV [facility] PRN Reason: Protocol Last Admin: 03/16/17 10:20 Dose: 100 mls/hr Insulin Aspart (Novolog Vial Sliding Scale -) 1 vial SQ ACHS [facility] PRN Reason: Protocol Last Admin: 03/16/17 11:48 Dose: Not Given Insulin Detemir (Levemir Vial) 50 units SQ HS [facility] Last Admin: 03/15/17 21:33 Dose: 50 units Insulin Detemir (Levemir Vial) 100 units SQ AM [facility] Last Admin: 03/16/17 06:18 Dose: Not Given Magnesium Oxide (Mag-Ox -) 400 mg PO BID [facility] Last Admin: 03/16/17 10:18 Dose: 400 mg Metoprolol Tartrate (Lopressor -) 50 mg PO DAILY [facility] Last Admin: 03/16/17 10:18 Dose: 50 mg Morphine Sulfate (Ms Contin -) 60 mg PO Q8H [facility] Last Admin: 03/16/17 08:29 Dose: 60 mg Prevacid 30 Mg Capsule - Patient Own Med 30 mg PO DAILY [facility] Last Admin: 03/16/17 10:17 Dose: 30 mg Ondansetron HCl (Zofran Injection) 4 mg IVPB Q6H PRN PRN Reason: NAUSEA Oxycodone HCl (Roxicodone -) 10 mg PO Q4H PRN PRN Reason: PAIN Last Admin: 03/16/17 12:54 Dose: 10 mg Polyethylene Glycol (Miralax (For Daily Use) -) 17 gm PO BID PRN PRN Reason: CONSTIPATION Pregabalin (Lyrica -) 50 mg PO BID [facility] Last Admin: 03/16/17 10:17 Dose: 50 mg Temazepam (Restoril -) 30 mg PO HS [facility] Last Admin: 03/15/17 21:07 Dose: 30 mg Zolpidem Tartrate (Ambien -) 5 mg PO HS PRN PRN Reason: sleep Last Admin: 03/16/17 03:35 Dose: 5 mg - Objective Vital Signs: Vital Signs Temperature 98.5 F 03/16/17 14:05 Pulse Rate 66 03/16/17 14:05 Respiratory Rate 18 03/16/17 14:05 Blood Pressure 136/71 03/16/17 14:05 O2 Sat by Pulse Oximetry (%) 97 03/16/17 12:00 Constitutional: Yes: Well Nourished, No Distress, Calm Cardiovascular: Yes: Regular Rate and Rhythm. No: Gallop, Murmur, Rub Respiratory: Yes: Regular, CTA Bilaterally. No: Rales, Rhonchi, Wheezes Gastrointestinal: Yes: Normal Bowel Sounds, Soft. No: Distention, Tenderness Extremities: Yes: WNL Edema: No Labs: CBC, BMP 03/16/17 07:30 03/16/17 07:30 Problem List - Problems (1) Perineal abscess Code(s): L02.215 - CUTANEOUS ABSCESS OF PERINEUM (2) Sepsis Code(s): A41.9 - SEPSIS, UNSPECIFIED ORGANISM (3) CAD (coronary artery disease) Code(s): I25.10 - ATHSCL HEART DISEASE OF [place] CORONARY ARTERY W/O ANG PCTRS Qualifiers: (4) CKD (chronic kidney disease) Code(s): N18.9 - CHRONIC KIDNEY DISEASE, UNSPECIFIED Qualifiers: Chronic kidney disease stage: stage 2 (mild) Qualified Code(s): N18.2 - Chronic kidney disease, stage 2 (mild) (5) COPD (chronic obstructive pulmonary disease) Code(s): J44.9 - CHRONIC OBSTRUCTIVE PULMONARY DISEASE, UNSPECIFIED (6) Congestive heart failure (CHF) Code(s): I50.9 - HEART FAILURE, UNSPECIFIED Qualifiers: Congestive heart failure type: systolic Congestive heart failure chronicity: chronic Qualified Code(s): I50.22 - Chronic systolic ( congestive) heart failure (7) Diabetes mellitus Code(s): E11.9 - TYPE 2 DIABETES MELLITUS WITHOUT COMPLICATIONS Qualifiers: Diabetes mellitus type: type 2 Diabetes mellitus complication status: with circulatory complication Diabetes mellitus complication detail: with peripheral angiopathy with gangrene Diabetes mellitus emt intermediate insulin use : with detention use Qualified Code(s): E11.52 - Type 2 diabetes mellitus with diabetic peripheral angiopathy with gangrene; Z79.4 - senior care ( current) use of insulin (8) Hypertension Code(s): I10 - ESSENTIAL (PRIMARY) HYPERTENSION (9) Chronic respiratory failure Code(s): J96.10 - CHRONIC RESPIRATORY FAILURE, UNSP W HYPOXIA OR HYPERCAPNIA Qualifiers: Respiratory failure complication: hypoxia Qualified Code(s): J96.11 - Chronic respiratory failure with hypoxia Assessment/Plan (1) Perineal abscess Assessment/Plan: -s/p I&D -ID following -follow up cultures Code(s): L02.215 - CUTANEOUS ABSCESS OF PERINEUM (2) Sepsis Assessment/Plan: -improving -continue antibiotics Code(s): A41.9 - SEPSIS, UNSPECIFIED ORGANISM (3) CAD (coronary artery disease) Assessment/Plan: -quiescent -continue home regimen Code(s): I25.10 - ATHSCL HEART DISEASE OF [place] CORONARY ARTERY W/O ANG PCTRS Qualifiers: (4) CKD (chronic kidney disease) Assessment/Plan: -treat sepsis -approaching baseline Code(s): N18.9 - CHRONIC KIDNEY DISEASE, UNSPECIFIED Qualifiers: Chronic kidney disease stage: stage 2 (mild) Qualified Code(s): N18.2 - Chronic kidney disease, stage 2 (mild) (5) COPD (chronic obstructive pulmonary disease) Assessment/Plan: -not in exacerbation -continue oxygen and home regimen Code(s): J44.9 - CHRONIC OBSTRUCTIVE PULMONARY DISEASE, UNSPECIFIED (6) Congestive heart failure (CHF) Assessment/Plan: -continue lasix and blood pressure control Code(s): I50.9 - HEART FAILURE, UNSPECIFIED Qualifiers: Congestive heart failure type: systolic Congestive heart failure chronicity: chronic Qualified Code(s): I50.22 - Chronic systolic ( congestive) heart failure (7) Diabetes mellitus Assessment/Plan: -diabetic diet -continue levemir -FSBS and SSI -wound care consulted and appreciate assistance Code(s): E11.9 - TYPE 2 DIABETES MELLITUS WITHOUT COMPLICATIONS Qualifiers: Diabetes mellitus type: type 2 Diabetes mellitus complication status: with circulatory complication Diabetes mellitus complication detail: with peripheral angiopathy with gangrene Diabetes mellitus detention insulin use : with detention use Qualified Code(s): E11.52 - Type 2 diabetes mellitus with diabetic peripheral angiopathy with gangrene; Z79.4 - ad terminal makeup operator ( current) use of insulin (8) Hypertension Assessment/Plan: -continue metoprolol -monitor Code(s): I10 - ESSENTIAL (PRIMARY) HYPERTENSION (9) Chronic respiratory failure Assessment/Plan: -continue oxygen support Code(s): J96.10 - CHRONIC RESPIRATORY FAILURE, UNSP W HYPOXIA OR HYPERCAPNIA Qualifiers: Respiratory failure complication: hypoxia Qualified Code(s): J96.11 - Chronic respiratory failure with hypoxia
[2017-03-16] MEDS ORDERED: VANCOMYCIN 1 GRAM (PRE-DOCKED) 1,000 MG/250 ML BAG IVPB ONE (16:30)
[2017-03-16] MEDS: TEMAZEPAM 15 MG CAPSULE PO SCH (21:10)
[2017-03-17] MEDS: ALBUTEROL SO4 0.083% IH SOL 2.5 MG/3 ML VIAL.NEB. NEB SCH ×4 (00:28→18:45)
[2017-03-17] MEDS: morphine SO4 SUSTAINED ACTING 30 MG TABLET.SA PO SCH ×3 (00:37→16:28)
[2017-03-17] MEDS: PIPERACILLIN/TAZOB 2.25 GM 50 ML IVPB SCH ×3 (01:36→18:02)
[2017-03-17] MEDS: ACETAMINOPHEN 325 MG TABLET (FP) PO PRN ×4 (01:40→15:25)
[2017-03-17] MEDS: ZOLPIDEM TARTRATE 5 MG TABLET PO PRN (03:47)
[2017-03-17] MEDS: INSULIN SLIDING SCALE (NOVOLOG) 1 VIAL SQ SCH ×4 (06:32→22:03)
[2017-03-17] MEDS: INSULIN DETEMIR 100 UNITS/ML MDV SQ SCH ×2 (06:32→22:03)
[2017-03-17 07:59] LABS: MCH 27.9 pg (25.7-33.7); MCHC 32.6 g/dl (32.0-35.9); MEAN CELL VOLUME 85.4 fl (80-96); MEAN PLT VOLUME 7.6 fl (7.5-11.1); PLATELET COUNT 412 K/MM3 (134-434); WHITE BLOOD COUNT 14.3 K/mm3 (4.0-10.0)
[2017-03-17 08:27] LABS: CALCIUM 8.5 mg/dL (8.5-10.1); COCKROFT - GAULT 65.33; CREATININE 1.3 mg/dL (0.7-1.3); MAGNESIUM 2.3 mg/dL (1.8-2.4); PHOSPHOROUS 4.2 mg/dL (2.5-4.9)
[2017-03-17 08:49] LABS: PLATELET ESTIMATE ADEQUATE (NORMAL)
[2017-03-17] MEDS: hydrALAZINE HCL 10 MG TABLET PO SCH ×2 (09:04→21:57)
[2017-03-17] MEDS: ASPIRIN COATED 81 MG TABLET.EC PO SCH (09:04)
[2017-03-17] MEDS: MAGNESIUM OXIDE 400 MG TABLET (FP) PO SCH ×2 (09:04→21:57)
[2017-03-17] MEDS: CLOPIDOGREL BISULFATE 75 MG TABLET (FP) PO SCH (09:04)
[2017-03-17] MEDS: PREGABALIN 50 MG CAPSULE PO SCH ×2 (09:04→21:57)
[2017-03-17] MEDS: METOPROLOL TARTRATE 50 MG TABLET (FP) PO SCH (09:04)
[2017-03-17] MEDS: PREVACID 30 MG PO SCH (09:04)
[2017-03-17] MEDS: FUROSEMIDE 40 MG TABLET (FP) PO SCH (09:04)
[2017-03-17] MEDS: DOCUSATE SODIUM 100 MG CAPSULE (FP) PO SCH ×2 (09:04→21:57)
[2017-03-17] MEDS: BUDESONIDE/FORMETEROL FUMARATE 160/4.5 mcg INHALER IH SCH ×2 (09:05→21:58)
[2017-03-17] MEDS: ACLIDINIUM BROMIDE 400 MCG/INH AERO.POWD IH SCH ×2 (09:05→21:58)
--- NOTE | 2017-03-17 10:50 | PN ---
Progress Note, Physician Chief Complaint: Mr Scott complains of chronic pain but otherwise says he is doing well. No cp, sob, n/v. Eager to go home. - Current Medication List Current Medications: Active Medications Acetaminophen (Tylenol -) 650 mg PO Q4H PRN PRN Reason: FEVER OR PAIN Last Admin: 03/17/17 06:27 Dose: 650 mg Aclidinium [place] (Tudorza -) 1 puff IH BID [facility] Last Admin: 03/17/17 09:05 Dose: 1 puff Albuterol Sulfate (Ventolin 0.083% Nebulizer Soln -) 1 amp NEB QIDR [facility] Last Admin: 03/17/17 06:06 Dose: Not Given Aspirin (Ecotrin -) 81 mg PO DAILY [facility] Last Admin: 03/17/17 09:04 Dose: 81 mg Budesonide/Formoterol Fumarate (Symbicort 160/4.5mcg -) 2 puff IH BID [facility] Last Admin: 03/17/17 09:05 Dose: 2 puff Clopidogrel Bisulfate (Plavix -) 75 mg PO DAILY [facility] Last Admin: 03/17/17 09:04 Dose: 75 mg Collagenase (Santyl -) 1 applic TP DAILY [facility] Last Admin: 03/16/17 10:21 Dose: 1 applic Docusate Sodium (Colace -) 100 mg PO BID [facility] Last Admin: 03/17/17 09:04 Dose: 100 mg Furosemide (Lasix -) 80 mg PO DAILY [facility] Last Admin: 03/17/17 09:04 Dose: 80 mg Hydralazine HCl (Apresoline -) 10 mg PO BID [facility] Last Admin: 03/17/17 09:04 Dose: 10 mg Piperacillin Sod/Tazobactam Sod (Zosyn 2.25gm Ivpb (Pre-Docked)) 50 mls @ 100 mls/hr IVPB Q8H-IV [facility] PRN Reason: Protocol Last Admin: 03/17/17 09:05 Dose: 100 mls/hr Insulin Aspart (Novolog Vial Sliding Scale -) 1 vial SQ ACHS [facility] PRN Reason: Protocol Last Admin: 03/17/17 06:32 Dose: Not Given Insulin Detemir (Levemir Vial) 50 units SQ HS [facility] Last Admin: 03/16/17 21:15 Dose: 50 units Insulin Detemir (Levemir Vial) 100 units SQ AM [facility] Last Admin: 03/17/17 06:32 Dose: Not Given Magnesium Oxide (Mag-Ox -) 400 mg PO BID [facility] Last Admin: 03/17/17 09:04 Dose: 400 mg Metoprolol Tartrate (Lopressor -) 50 mg PO DAILY [facility] Last Admin: 03/17/17 09:04 Dose: 50 mg Morphine Sulfate (Ms Contin -) 60 mg PO Q8H [facility] Last Admin: 03/17/17 09:03 Dose: 60 mg Prevacid 30 Mg Capsule - Patient Own Med 30 mg PO DAILY [facility] Last Admin: 03/17/17 09:04 Dose: 30 mg Ondansetron HCl (Zofran Injection) 4 mg IVPB Q6H PRN PRN Reason: NAUSEA Oxycodone HCl (Roxicodone -) 10 mg PO Q4H PRN PRN Reason: PAIN Polyethylene Glycol (Miralax (For Daily Use) -) 17 gm PO BID PRN PRN Reason: CONSTIPATION Pregabalin (Lyrica -) 50 mg PO BID [facility] Last Admin: 03/17/17 09:04 Dose: 50 mg Temazepam (Restoril -) 30 mg PO HS [facility] Last Admin: 03/16/17 21:10 Dose: 30 mg Zolpidem Tartrate (Ambien -) 5 mg PO HS PRN Last Admin: 03/17/17 03:47 Dose: 5 mg - Objective Vital Signs: Vital Signs Temperature 98.2 F 03/16/17 22:00 Pulse Rate 63 03/17/17 06:00 Respiratory Rate 20 03/17/17 06:00 Blood Pressure 150/93 03/17/17 06:00 O2 Sat by Pulse Oximetry (%) 96 03/16/17 22:00 Constitutional: Yes: Well Nourished, No Distress, Calm Cardiovascular: Yes: Regular Rate and Rhythm. No: Gallop, Murmur, Rub Respiratory: Yes: Regular, CTA Bilaterally. No: Rales, Rhonchi, Wheezes Gastrointestinal: Yes: Normal Bowel Sounds, Soft. No: Distention, Tenderness Extremities: Yes: WNL Edema: No Labs: CBC, BMP 03/17/17 07:00 03/17/17 07:00 Problem List - Problems (1) Perineal abscess Code(s): L02.215 - CUTANEOUS ABSCESS OF PERINEUM (2) Sepsis Code(s): A41.9 - SEPSIS, UNSPECIFIED ORGANISM (3) CAD (coronary artery disease) Code(s): I25.10 - ATHSCL HEART DISEASE OF [place] CORONARY ARTERY W/O ANG PCTRS Qualifiers: (4) CKD (chronic kidney disease) Code(s): N18.9 - CHRONIC KIDNEY DISEASE, UNSPECIFIED Qualifiers: Chronic kidney disease stage: stage 2 (mild) Qualified Code(s): N18.2 - Chronic kidney disease, stage 2 (mild) (5) COPD (chronic obstructive pulmonary disease) Code(s): J44.9 - CHRONIC OBSTRUCTIVE PULMONARY DISEASE, UNSPECIFIED (6) Congestive heart failure (CHF) Code(s): I50.9 - HEART FAILURE, UNSPECIFIED Qualifiers: Congestive heart failure type: systolic Congestive heart failure chronicity: chronic Qualified Code(s): I50.22 - Chronic systolic ( congestive) heart failure (7) Diabetes mellitus Code(s): E11.9 - TYPE 2 DIABETES MELLITUS WITHOUT COMPLICATIONS Qualifiers: Diabetes mellitus type: type 2 Diabetes mellitus complication status: with circulatory complication Diabetes mellitus complication detail: with peripheral angiopathy with gangrene Diabetes mellitus mri supervisor insulin use : with mri supervisor use Qualified Code(s): E11.52 - Type 2 diabetes mellitus with diabetic peripheral angiopathy with gangrene; Z79.4 - correction ( current) use of insulin (8) Hypertension Code(s): I10 - ESSENTIAL (PRIMARY) HYPERTENSION (9) Chronic respiratory failure Code(s): J96.10 - CHRONIC RESPIRATORY FAILURE, UNSP W HYPOXIA OR HYPERCAPNIA Qualifiers: Respiratory failure complication: hypoxia Qualified Code(s): J96.11 - Chronic respiratory failure with hypoxia Assessment/Plan (1) Perineal abscess Assessment/Plan: -s/p I&D -ID following Code(s): L02.215 - CUTANEOUS ABSCESS OF PERINEUM (2) Sepsis Assessment/Plan: -4/4 blood cultures growing coag negative staph -case d/w ID -continue IV antibiotics Code(s): A41.9 - SEPSIS, UNSPECIFIED ORGANISM (3) CAD (coronary artery disease) Assessment/Plan: -quiescent -continue home regimen Code(s): I25.10 - ATHSCL HEART DISEASE OF [place] CORONARY ARTERY W/O ANG PCTRS Qualifiers: (4) CKD (chronic kidney disease) Assessment/Plan: -treat sepsis -at baseline Code(s): N18.9 - CHRONIC KIDNEY DISEASE, UNSPECIFIED Qualifiers: Chronic kidney disease stage: stage 2 (mild) Qualified Code(s): N18.2 - Chronic kidney disease, stage 2 (mild) (5) COPD (chronic obstructive pulmonary disease) Assessment/Plan: -not in exacerbation -continue oxygen and home regimen Code(s): J44.9 - CHRONIC OBSTRUCTIVE PULMONARY DISEASE, UNSPECIFIED (6) Congestive heart failure (CHF) Assessment/Plan: -continue lasix and blood pressure control Code(s): I50.9 - HEART FAILURE, UNSPECIFIED Qualifiers: Congestive heart failure type: systolic Congestive heart failure chronicity: chronic Qualified Code(s): I50.22 - Chronic systolic ( congestive) heart failure (7) Diabetes mellitus Assessment/Plan: -diabetic diet -continue levemir -FSBS and SSI -wound care consulted and appreciate assistance Code(s): E11.9 - TYPE 2 DIABETES MELLITUS WITHOUT COMPLICATIONS Qualifiers: Diabetes mellitus type: type 2 Diabetes mellitus complication status: with circulatory complication Diabetes mellitus complication detail: with peripheral angiopathy with gangrene Diabetes mellitus mri supervisor insulin use : with custodial use Qualified Code(s): E11.52 - Type 2 diabetes mellitus with diabetic peripheral angiopathy with gangrene; Z79.4 - correction ( current) use of insulin (8) Hypertension Assessment/Plan: -continue metoprolol -monitor Code(s): I10 - ESSENTIAL (PRIMARY) HYPERTENSION (9) Chronic respiratory failure Assessment/Plan: -continue oxygen support Code(s): J96.10 - CHRONIC RESPIRATORY FAILURE, UNSP W HYPOXIA OR HYPERCAPNIA Qualifiers: Respiratory failure complication: hypoxia Qualified Code(s): J96.11 - Chronic respiratory failure with hypoxia
--- NOTE | 2017-03-17 11:11 | PN ---
Progress Note, Physician History of Present Illness: patient stable no complaints - Current Medication List Current Medications: Active Medications Acetaminophen (Tylenol -) 650 mg PO Q4H PRN PRN Reason: FEVER OR PAIN Last Admin: 03/17/17 06:27 Dose: 650 mg Aclidinium [place] (Tudorza -) 1 puff IH BID [facility] Last Admin: 03/17/17 09:05 Dose: 1 puff Albuterol Sulfate (Ventolin 0.083% Nebulizer Soln -) 1 amp NEB QIDR [facility] Last Admin: 03/17/17 06:06 Dose: Not Given Aspirin (Ecotrin -) 81 mg PO DAILY [facility] Last Admin: 03/17/17 09:04 Dose: 81 mg Budesonide/Formoterol Fumarate (Symbicort 160/4.5mcg -) 2 puff IH BID [facility] Last Admin: 03/17/17 09:05 Dose: 2 puff Clopidogrel Bisulfate (Plavix -) 75 mg PO DAILY [facility] Last Admin: 03/17/17 09:04 Dose: 75 mg Collagenase (Santyl -) 1 applic TP DAILY [facility] Last Admin: 03/16/17 10:21 Dose: 1 applic Docusate Sodium (Colace -) 100 mg PO BID [facility] Last Admin: 03/17/17 09:04 Dose: 100 mg Furosemide (Lasix -) 80 mg PO DAILY [facility] Last Admin: 03/17/17 09:04 Dose: 80 mg Hydralazine HCl (Apresoline -) 10 mg PO BID [facility] Last Admin: 03/17/17 09:04 Dose: 10 mg Piperacillin Sod/Tazobactam Sod (Zosyn 2.25gm Ivpb (Pre-Docked)) 50 mls @ 100 mls/hr IVPB Q8H-IV [facility] PRN Reason: Protocol Last Admin: 03/17/17 09:05 Dose: 100 mls/hr Insulin Aspart (Novolog Vial Sliding Scale -) 1 vial SQ ACHS [facility] PRN Reason: Protocol Last Admin: 03/17/17 06:32 Dose: Not Given Insulin Detemir (Levemir Vial) 50 units SQ HS [facility] Last Admin: 03/16/17 21:15 Dose: 50 units Insulin Detemir (Levemir Vial) 100 units SQ AM [facility] Last Admin: 03/17/17 06:32 Dose: Not Given Magnesium Oxide (Mag-Ox -) 400 mg PO BID [facility] Last Admin: 03/17/17 09:04 Dose: 400 mg Metoprolol Tartrate (Lopressor -) 50 mg PO DAILY [facility] Last Admin: 03/17/17 09:04 Dose: 50 mg Morphine Sulfate (Ms Contin -) 60 mg PO Q8H [facility] Last Admin: 03/17/17 09:03 Dose: 60 mg Prevacid 30 Mg Capsule - Patient Own Med 30 mg PO DAILY [facility] Last Admin: 03/17/17 09:04 Dose: 30 mg Ondansetron HCl (Zofran Injection) 4 mg IVPB Q6H PRN PRN Reason: NAUSEA Oxycodone HCl (Roxicodone -) 10 mg PO Q4H PRN PRN Reason: PAIN Polyethylene Glycol (Miralax (For Daily Use) -) 17 gm PO BID PRN PRN Reason: CONSTIPATION Pregabalin (Lyrica -) 50 mg PO BID [facility] Last Admin: 03/17/17 09:04 Dose: 50 mg Temazepam (Restoril -) 30 mg PO HS [facility] Last Admin: 03/16/17 21:10 Dose: 30 mg Zolpidem Tartrate (Ambien -) 5 mg PO HS [facility] Last Admin: 03/17/17 03:47 Dose: 5 mg - Objective Vital Signs: Vital Signs Temperature 98.2 F 03/16/17 22:00 Pulse Rate 63 03/17/17 06:00 Respiratory Rate 20 03/17/17 06:00 Blood Pressure 150/93 03/17/17 06:00 O2 Sat by Pulse Oximetry (%) 96 03/16/17 22:00 Constitutional: Yes: No Distress, Calm Cardiovascular: Yes: Regular Rate and Rhythm Respiratory: Yes: Regular, CTA Bilaterally Gastrointestinal: Yes: Normal Bowel Sounds, Soft Musculoskeletal: Yes: Other Extremities: Yes: Other Integumentary: Yes: Other Wound/Incision: Yes: Dressing Dry and Intact Neurological: Yes: Alert, Oriented Psychiatric: Yes: Alert, Oriented Labs: CBC, BMP 03/17/17 07:00 03/17/17 07:00 Assessment/Plan Problem List - Problems (1) Perineal abscess Code(s): L02.215 - CUTANEOUS ABSCESS OF PERINEUM (2) Sepsis Code(s): A41.9 - SEPSIS, UNSPECIFIED ORGANISM (3) CAD (coronary artery disease) Code(s): I25.10 - ATHSCL HEART DISEASE OF [place] CORONARY ARTERY W/O ANG PCTRS Qualifiers: (4) CKD (chronic kidney disease) Code(s): N18.9 - CHRONIC KIDNEY DISEASE, UNSPECIFIED Qualifiers: Chronic kidney disease stage: stage 2 (mild) Qualified Code(s): N18.2 - Chronic kidney disease, stage 2 (mild) (5) COPD (chronic obstructive pulmonary disease) Code(s): J44.9 - CHRONIC OBSTRUCTIVE PULMONARY DISEASE, UNSPECIFIED (6) Congestive heart failure (CHF)l Code(s): I50.9 - HEART FAILURE, UNSPECIFIED Qualifiers: Congestive heart failure type: systolic Congestive heart failure chronicity: chronic Qualified Code(s): I50.22 - Chronic systolic ( congestive) heart failure (7) Diabetes mellitus Code(s): E11.9 - TYPE 2 DIABETES MELLITUS WITHOUT COMPLICATIONS Qualifiers: Diabetes mellitus type: type 2 Diabetes mellitus complication status: with circulatory complication Diabetes mellitus complication detail: with peripheral angiopathy with gangrene Diabetes mellitus residential insulin use : with termite renewal inspector use Qualified Code(s): E11.52 - Type 2 diabetes mellitus with diabetic peripheral angiopathy with gangrene; Z79.4 - 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
[2017-03-17] MEDS ORDERED: INSULIN (NOVOLOG) ASPART 100 UNITS/ML 10ML VIAL ONE (11:37)
[2017-03-17] MEDS: COLLAGENASE CLOSTRIDIUM HIST. 30 GRAMS TUBE TP SCH (11:49)
[2017-03-17] MEDS: oxyCODONE HCL 5 MG TABLET PO PRN ×3 (12:45→22:18)
[2017-03-17] MEDS: VANCOMYCIN 1,250 MG in DEXTROSE 5%-WATER - 250 ML IVPB SCH (15:38)
[2017-03-17] MEDS ORDERED: PT OWN MED DRAWER 7, Y5N ONE (21:55)
[2017-03-17] MEDS: TEMAZEPAM 15 MG CAPSULE PO SCH (21:57)
[2017-03-18] MEDS: morphine SO4 SUSTAINED ACTING 30 MG TABLET.SA PO SCH ×3 (00:02→16:58)
[2017-03-18] MEDS: ZOLPIDEM TARTRATE 5 MG TABLET PO PRN (00:02)
[2017-03-18] MEDS: ALBUTEROL SO4 0.083% IH SOL 2.5 MG/3 ML VIAL.NEB. NEB SCH ×4 (00:25→18:32)
[2017-03-18] MEDS: PIPERACILLIN/TAZOB 2.25 GM 50 ML IVPB SCH ×3 (01:33→17:40)
[2017-03-18] MEDS: oxyCODONE HCL 5 MG TABLET PO PRN ×5 (02:21→20:49)
[2017-03-18] MEDS: INSULIN DETEMIR 100 UNITS/ML MDV SQ SCH ×2 (06:22→21:59)
[2017-03-18] MEDS ORDERED: INSULIN (NOVOLOG) ASPART 100 UNITS/ML 10ML VIAL ONE ×4 (06:25→21:20)
[2017-03-18] MEDS: INSULIN SLIDING SCALE (NOVOLOG) 1 VIAL SQ SCH ×4 (06:26→21:59)
[2017-03-18 07:51] LABS: MCH 28.4 pg (25.7-33.7); MCHC 33.2 g/dl (32.0-35.9); MEAN CELL VOLUME 85.4 fl (80-96); MEAN PLT VOLUME 7.7 fl (7.5-11.1); PLATELET COUNT 386 K/MM3 (134-434); RDW 17.5 % (11.9-15.9); WHITE BLOOD COUNT 14.5 K/mm3 (4.0-10.0)
[2017-03-18 08:15] LABS: CALCIUM 8.4 mg/dL (8.5-10.1); COCKROFT - GAULT 60.67; CREATININE 1.4 mg/dL (0.7-1.3); MAGNESIUM 2.1 mg/dL (1.8-2.4); PHOSPHOROUS 4.2 mg/dL (2.5-4.9)
[2017-03-18] MEDS ORDERED: INSULIN DETEMIR 100 UNITS/ML MDV SQ ONE ×2 (09:15→17:31)
[2017-03-18] MEDS: PREGABALIN 50 MG CAPSULE PO SCH ×2 (09:39→21:58)
[2017-03-18] MEDS: DOCUSATE SODIUM 100 MG CAPSULE (FP) PO SCH ×2 (09:40→21:58)
[2017-03-18] MEDS: ASPIRIN COATED 81 MG TABLET.EC PO SCH (09:40)
[2017-03-18] MEDS: MAGNESIUM OXIDE 400 MG TABLET (FP) PO SCH ×2 (09:40→21:58)
[2017-03-18] MEDS: CLOPIDOGREL BISULFATE 75 MG TABLET (FP) PO SCH (09:40)
[2017-03-18] MEDS: METOPROLOL TARTRATE 50 MG TABLET (FP) PO SCH (09:40)
[2017-03-18] MEDS: hydrALAZINE HCL 10 MG TABLET PO SCH ×2 (09:40→21:58)
[2017-03-18] MEDS: FUROSEMIDE 40 MG TABLET (FP) PO SCH (09:40)
[2017-03-18] MEDS: ACLIDINIUM BROMIDE 400 MCG/INH AERO.POWD IH SCH ×2 (09:42→22:00)
[2017-03-18] MEDS: BUDESONIDE/FORMETEROL FUMARATE 160/4.5 mcg INHALER IH SCH ×2 (09:42→22:00)
[2017-03-18] MEDS: PREVACID 30 MG PO SCH (09:48)
--- NOTE | 2017-03-18 10:16 | PN ---
Progress Note, Physician History of Present Illness: Feeling better, since I&D of perineal abscess. Awaiting repeat blood culture results to see if can be switched to PO abx or else may need PICC line again. Refused Levemir insulin last night and this morning, as was afraid that his blood sugar would go too low. - Current Medication List Current Medications: Active Medications Acetaminophen (Tylenol -) 650 mg PO Q4H PRN PRN Reason: FEVER OR PAIN Last Admin: 03/17/17 15:25 Dose: 650 mg Aclidinium [place] (Tudorza -) 1 puff IH BID [facility] Last Admin: 03/18/17 09:42 Dose: 1 puff Albuterol Sulfate (Ventolin 0.083% Nebulizer Soln -) 1 amp NEB QIDR [facility] Last Admin: 03/18/17 07:09 Dose: Not Given Aspirin (Ecotrin -) 81 mg PO DAILY [facility] Last Admin: 03/18/17 09:40 Dose: 81 mg Budesonide/Formoterol Fumarate (Symbicort 160/4.5mcg -) 2 puff IH BID [facility] Last Admin: 03/18/17 09:42 Dose: 2 puff Clopidogrel Bisulfate (Plavix -) 75 mg PO DAILY [facility] Last Admin: 03/18/17 09:40 Dose: 75 mg Collagenase (Santyl -) 1 applic TP DAILY [facility] Last Admin: 03/17/17 11:49 Dose: 1 applic Docusate Sodium (Colace -) 100 mg PO BID [facility] Last Admin: 03/18/17 09:40 Dose: 100 mg Furosemide (Lasix -) 80 mg PO DAILY [facility] Last Admin: 03/18/17 09:40 Dose: 80 mg Hydralazine HCl (Apresoline -) 10 mg PO BID [facility] Last Admin: 03/18/17 09:40 Dose: 10 mg Piperacillin Sod/Tazobactam Sod (Zosyn 2.25gm Ivpb (Pre-Docked)) 50 mls @ 100 mls/hr IVPB Q8H-IV [facility] PRN Reason: Protocol Last Admin: 03/18/17 09:43 Dose: 100 mls/hr Vancomycin HCl 1,250 mg/ (Dextrose) 250 mls @ 166.667 mls/hr IVPB DAILY@1400 [facility] PRN Reason: Protocol Last Admin: 03/17/17 15:38 Dose: 166.667 mls/hr Insulin Aspart (Novolog Vial Sliding Scale -) 1 vial SQ ACHS [facility] PRN Reason: Protocol Last Admin: 03/18/17 06:26 Dose: 2 units Insulin Detemir (Levemir Vial) 50 units SQ HS [facility] Last Admin: 03/17/17 22:03 Dose: Not Given Insulin Detemir (Levemir Vial) 100 units SQ AM [facility] Last Admin: 03/18/17 06:22 Dose: Not Given Magnesium Oxide (Mag-Ox -) 400 mg PO BID [facility] Last Admin: 03/18/17 09:40 Dose: 400 mg Metoprolol Tartrate (Lopressor -) 50 mg PO DAILY [facility] Last Admin: 03/18/17 09:40 Dose: 50 mg Morphine Sulfate (Ms Contin -) 60 mg PO Q8H [facility] Last Admin: 03/18/17 09:30 Dose: 60 mg Prevacid 30 Mg Capsule - Patient Own Med 30 mg PO DAILY [facility] Last Admin: 03/18/17 09:48 Dose: 30 mg Ondansetron HCl (Zofran Injection) 4 mg IVPB Q6H PRN PRN Reason: NAUSEA Oxycodone HCl (Roxicodone -) 10 mg PO Q4H PRN PRN Reason: PAIN Last Admin: 03/18/17 06:23 Dose: 10 mg Polyethylene Glycol (Miralax (For Daily Use) -) 17 gm PO BID PRN PRN Reason: CONSTIPATION Pregabalin (Lyrica -) 50 mg PO BID [facility] Last Admin: 03/18/17 09:39 Dose: 50 mg Temazepam (Restoril -) 30 mg PO [facility] Last Admin: 03/17/17 21:57 Dose: 30 mg Zolpidem Tartrate (Ambien -) 5 mg PO HS PRN Last Admin: 03/18/17 00:02 Dose: 5 mg - Objective Vital Signs: Vital Signs Temperature 98.5 F 03/18/17 06:00 Pulse Rate 61 03/18/17 09:46 Respiratory Rate 18 03/18/17 06:00 Blood Pressure 144/61 03/18/17 06:00 O2 Sat by Pulse Oximetry (%) 95 03/18/17 09:46 Constitutional: Yes: No Distress, Calm HENT: Yes: Atraumatic, Normocephalic Neck: Yes: Supple, Trachea Midline Cardiovascular: Yes: Regular Rate and Rhythm, S1, S2. No: Murmur Respiratory: Yes: Regular, CTA Bilaterally. No: Rales, Rhonchi, Wheezes Gastrointestinal: Yes: Normal Bowel Sounds, Soft. No: Distention, Tenderness Extremities: Yes: Other (toes with wounds) Edema: No Labs: CBC, BMP 03/18/17 06:20 03/18/17 06:20 Assessment/Plan All Active Problems Cellulitis and abscess of buttock (Acute) Chest pain (Acute) Chronic respiratory failure (Acute) Abnormal chest x-ray (Acute) Acute on chronic systolic and diastolic heart failure, NYHA class 2 (Acute) Acute respiratory failure (Acute) Back pain (Acute) Bacteremia (Acute) Blurry vision, right eye (Acute) CAD (coronary artery disease) (Acute) CKD (chronic kidney disease) (Acute) COPD (chronic obstructive pulmonary disease) (Acute) Cardiomyopathy (Acute) Cellulitis (Acute) Cellulitis of foot (Acute) Chronic pain (Acute) Congestive heart failure (CHF) (Acute) Constipation (Acute) Diabetes mellitus (Acute) Diabetic foot ulcer (Acute) Dyspnea on exertion (Acute) Edema of leg (Acute) Edema of upper extremity (Acute) Fall (Acute) Hyperkalemia (Acute) Hyperlipidemia (Acute) Hypertension (Acute) Hypokalemia (Acute) Hypomagnesemia (Acute) Leg edema (Acute) Leukocytosis (Acute) Olecranon bursitis of right elbow (Acute) Orthopnea (Acute) Pedal edema (Acute) Perineal abscess (Acute) Peripheral edema (Acute) Peripheral neuropathic pain (Acute) Peripheral neuropathy (Acute) Renal failure (Acute) Renal failure (ARF), acute on chronic (Acute) Sepsis (Acute) Swelling of right elbow joint (Acute) Tobacco abuse (Acute) Type 2 diabetes mellitus with diabetic autonomic (poly)neuropathy (Acute) Uremic encephalopathy (Acute) Weakness (Acute) -continue IV abx, repeat blood cultures drawn -agrees to lower dose Levemir now -continue other medications
[2017-03-18 10:53] LABS: PLATELET ESTIMATE ADEQUATE (NORMAL)
[2017-03-18] MEDS: COLLAGENASE CLOSTRIDIUM HIST. 30 GRAMS TUBE TP SCH (11:52)
[2017-03-18] MEDS ORDERED: PT OWN MED DRAWER 7, Y5N ONE ×2 (11:58→17:30)
[2017-03-18] MEDS: ACETAMINOPHEN 325 MG TABLET (FP) PO PRN ×2 (13:27→23:05)
[2017-03-18] MEDS: VANCOMYCIN 1,250 MG in DEXTROSE 5%-WATER - 250 ML IVPB SCH (15:04)
--- NOTE | 2017-03-18 18:22 | PN ---
Progress Note, Physician History of Present Illness: stable no new issues - Current Medication List Current Medications: Active Medications Acetaminophen (Tylenol -) 650 mg PO Q4H PRN PRN Reason: FEVER OR PAIN Last Admin: 03/18/17 13:27 Dose: 650 mg Aclidinium [place] (Tudorza -) 1 puff IH BID [facility] Last Admin: 03/18/17 09:42 Dose: 1 puff Albuterol Sulfate (Ventolin 0.083% Nebulizer Soln -) 1 amp NEB QIDR [facility] Last Admin: 03/18/17 11:40 Dose: 1 amp Aspirin (Ecotrin -) 81 mg PO DAILY [facility] Last Admin: 03/18/17 09:40 Dose: 81 mg Budesonide/Formoterol Fumarate (Symbicort 160/4.5mcg -) 2 puff IH BID [facility] Last Admin: 03/18/17 09:42 Dose: 2 puff Clopidogrel Bisulfate (Plavix -) 75 mg PO DAILY [facility] Last Admin: 03/18/17 09:40 Dose: 75 mg Collagenase (Santyl -) 1 applic TP DAILY [facility] Last Admin: 03/18/17 11:52 Dose: 1 applic Docusate Sodium (Colace -) 100 mg PO BID [facility] Last Admin: 03/18/17 09:40 Dose: 100 mg Furosemide (Lasix -) 80 mg PO DAILY [facility] Last Admin: 03/18/17 09:40 Dose: 80 mg Hydralazine HCl (Apresoline -) 10 mg PO BID [facility] Last Admin: 03/18/17 09:40 Dose: 10 mg Piperacillin Sod/Tazobactam Sod (Zosyn 2.25gm Ivpb (Pre-Docked)) 50 mls @ 100 mls/hr IVPB Q8H-IV [facility] PRN Reason: Protocol Last Admin: 03/18/17 17:40 Dose: 100 mls/hr Vancomycin HCl 1,250 mg/ (Dextrose) 250 mls @ 166.667 mls/hr IVPB DAILY@1400 [facility] PRN Reason: Protocol Last Admin: 03/18/17 15:04 Dose: 166.667 mls/hr Insulin Aspart (Novolog Vial Sliding Scale -) 1 vial SQ ACHS [facility] PRN Reason: Protocol Last Admin: 03/18/17 17:03 Dose: 2 units Insulin Detemir (Levemir Vial) 50 units SQ HS [facility] Last Admin: 03/17/17 22:03 Dose: Not Given Insulin Detemir (Levemir Vial) 100 units SQ AM [facility] Last Admin: 03/18/17 06:22 Dose: Not Given Magnesium Oxide (Mag-Ox -) 400 mg PO BID [facility] Last Admin: 03/18/17 09:40 Dose: 400 mg Metoprolol Tartrate (Lopressor -) 50 mg PO DAILY [facility] Last Admin: 03/18/17 09:40 Dose: 50 mg Morphine Sulfate (Ms Contin -) 60 mg PO Q8H [facility] Last Admin: 03/18/17 16:58 Dose: 60 mg Prevacid 30 Mg Capsule - Patient Own Med 30 mg PO DAILY [facility] Last Admin: 03/18/17 09:48 Dose: 30 mg Ondansetron HCl (Zofran Injection) 4 mg IVPB Q6H PRN PRN Reason: NAUSEA Oxycodone HCl (Roxicodone -) 10 mg PO Q4H PRN PRN Reason: PAIN Last Admin: 03/18/17 16:35 Dose: 10 mg Polyethylene Glycol (Miralax (For Daily Use) -) 17 gm PO BID PRN PRN Reason: CONSTIPATION Pregabalin (Lyrica -) 50 mg PO BID [facility] Last Admin: 03/18/17 09:39 Dose: 50 mg Temazepam (Restoril -) [address] [facility] Last Admin: 03/17/17 21:57 Dose: 30 mg Zolpidem Tartrate (Ambien -) 5 mg PO HS PRN Last Admin: 03/18/17 00:02 Dose: 5 mg - Objective Vital Signs: Vital Signs Temperature 98.6 F 03/18/17 16:55 Pulse Rate 70 03/18/17 16:55 Respiratory Rate 18 03/18/17 16:55 Blood Pressure 134/74 03/18/17 16:55 O2 Sat by Pulse Oximetry (%) 95 03/18/17 09:46 Constitutional: Yes: No Distress, Calm Cardiovascular: Yes: Regular Rate and Rhythm Respiratory: Yes: Regular, CTA Bilaterally Musculoskeletal: Yes: Other Extremities: Yes: Other Wound/Incision: Yes: Other Neurological: Yes: Alert, Oriented Psychiatric: Yes: Alert, Oriented Labs: CBC, BMP 03/18/17 06:20 03/18/17 06:20 Assessment/Plan Problem List - Problems (1) Perineal abscess Code(s): L02.215 - CUTANEOUS ABSCESS OF PERINEUM (2) Sepsis Code(s): A41.9 - SEPSIS, UNSPECIFIED ORGANISM (3) CAD (coronary artery disease) Code(s): I25.10 - ATHSCL HEART DISEASE OF [place] CORONARY ARTERY W/O ANG PCTRS Qualifiers: (4) CKD (chronic kidney disease) Code(s): N18.9 - CHRONIC KIDNEY DISEASE, UNSPECIFIED Qualifiers: Chronic kidney disease stage: stage 2 (mild) Qualified Code(s): N18.2 - Chronic kidney disease, stage 2 (mild) (5) COPD (chronic obstructive pulmonary disease) Code(s): J44.9 - CHRONIC OBSTRUCTIVE PULMONARY DISEASE, UNSPECIFIED (6) Congestive heart failure (CHF)l Code(s): I50.9 - HEART FAILURE, UNSPECIFIED Qualifiers: Congestive heart failure type: systolic Congestive heart failure chronicity: chronic Qualified Code(s): I50.22 - Chronic systolic ( congestive) heart failure (7) Diabetes mellitus Code(s): E11.9 - TYPE 2 DIABETES MELLITUS WITHOUT COMPLICATIONS Qualifiers: Diabetes mellitus type: type 2 Diabetes mellitus complication status: with circulatory complication Diabetes mellitus complication detail: with peripheral angiopathy with gangrene Diabetes mellitus rat exterminator insulin use : with rat exterminator use Qualified Code(s): E11.52 - Type 2 diabetes mellitus with diabetic peripheral angiopathy with gangrene; Z79.4 - senior care ( current) use of insulin (8) Hypertension Code(s): I10 - ESSENTIAL (PRIMARY) HYPERTENSION (9) Chronic respiratory failure Code(s): J96.10 - CHRNIC RESPIRATORY FAILURE, UNSP W HYPOXIA OR HYPERCAPNIA Qualifiers: Respiratory failure complication: hypoxia Qualified Code(s): J96.11 - Chronic respiratory failure with hypoxia plan cx result noted repeat blood cx result awaited
[2017-03-18] MEDS: TEMAZEPAM 15 MG CAPSULE PO SCH (21:58)
[2017-03-19] MEDS: ALBUTEROL SO4 0.083% IH SOL 2.5 MG/3 ML VIAL.NEB. NEB SCH ×5 (00:05→18:39)
[2017-03-19] MEDS: ZOLPIDEM TARTRATE 5 MG TABLET PO PRN ×2 (00:10→21:26)
[2017-03-19] MEDS: morphine SO4 SUSTAINED ACTING 30 MG TABLET.SA PO SCH ×4 (00:10→23:28)
[2017-03-19] MEDS: oxyCODONE HCL 5 MG TABLET PO PRN ×4 (01:17→19:57)
[2017-03-19] MEDS: PIPERACILLIN/TAZOB 2.25 GM 50 ML IVPB SCH ×3 (01:22→17:18)
[2017-03-19] MEDS: INSULIN SLIDING SCALE (NOVOLOG) 1 VIAL SQ SCH ×4 (06:01→21:36)
[2017-03-19 06:47] LABS: BASOPHIL 1.3 % (0-2.0); MCH 27.4 pg (25.7-33.7); MCHC 31.9 g/dl (32.0-35.9); NEUTROPHILS 66.3 % (42.8-82.8); PLATELET COUNT 388 K/MM3 (134-434); RDW 18.1 % (11.9-15.9); WHITE BLOOD COUNT 15.9 K/mm3 (4.0-10.0)
[2017-03-19] MEDS: INSULIN DETEMIR 100 UNITS/ML MDV SQ SCH ×2 (07:22→21:36)
[2017-03-19 07:27] LABS: ALBUMIN 2.6 g/dl (3.4-5.0); BILIRUBIN,TOTAL 0.6 mg/dL (0.2-1.0); CALCIUM 8.4 mg/dL (8.5-10.1); COCKROFT - GAULT 56.62; CREATININE 1.5 mg/dL (0.7-1.3)
[2017-03-19] MEDS: DOCUSATE SODIUM 100 MG CAPSULE (FP) PO SCH ×2 (09:45→21:27)
[2017-03-19] MEDS: CLOPIDOGREL BISULFATE 75 MG TABLET (FP) PO SCH (09:45)
[2017-03-19] MEDS: FUROSEMIDE 40 MG TABLET (FP) PO SCH (09:45)
[2017-03-19] MEDS: MAGNESIUM OXIDE 400 MG TABLET (FP) PO SCH ×2 (09:46→21:27)
[2017-03-19] MEDS: PREGABALIN 50 MG CAPSULE PO SCH ×2 (09:46→21:26)
[2017-03-19] MEDS: ASPIRIN COATED 81 MG TABLET.EC PO SCH (09:46)
[2017-03-19] MEDS: hydrALAZINE HCL 10 MG TABLET PO SCH ×2 (09:46→21:27)
[2017-03-19] MEDS: METOPROLOL TARTRATE 50 MG TABLET (FP) PO SCH (09:46)
[2017-03-19] MEDS: PREVACID 30 MG PO SCH (09:46)
[2017-03-19] MEDS: ACLIDINIUM BROMIDE 400 MCG/INH AERO.POWD IH SCH ×2 (09:47→21:28)
[2017-03-19] MEDS: BUDESONIDE/FORMETEROL FUMARATE 160/4.5 mcg INHALER IH SCH ×2 (09:47→21:28)
[2017-03-19] MEDS: COLLAGENASE CLOSTRIDIUM HIST. 30 GRAMS TUBE TP SCH (09:49)
[2017-03-19] MEDS: ACETAMINOPHEN 325 MG TABLET (FP) PO PRN ×2 (10:55→21:26)
--- NOTE | 2017-03-19 11:10 | PN ---
Progress Note, Physician History of Present Illness: Feels the same. No fevers overnight, no pain in perineum. Continues to have his chronic neuropathy pain - Current Medication List Current Medications: Active Medications Acetaminophen (Tylenol -) 650 mg PO Q4H PRN PRN Reason: FEVER OR PAIN Last Admin: 03/19/17 10:55 Dose: 650 mg Aclidinium [place] (Tudorza -) 1 puff IH BID [facility] Last Admin: 03/19/17 09:47 Dose: 1 puff Albuterol Sulfate (Ventolin 0.083% Nebulizer Soln -) 1 amp NEB QIDR [facility] Last Admin: 03/19/17 11:00 Dose: 1 amp Aspirin (Ecotrin -) 81 mg PO DAILY [facility] Last Admin: 03/19/17 09:46 Dose: 81 mg Budesonide/Formoterol Fumarate (Symbicort 160/4.5mcg -) 2 puff IH BID [facility] Last Admin: 03/19/17 09:47 Dose: 2 puff Clopidogrel Bisulfate (Plavix -) 75 mg PO DAILY [facility] Last Admin: 03/19/17 09:45 Dose: 75 mg Collagenase (Santyl -) 1 applic TP DAILY [facility] Last Admin: 03/19/17 09:49 Dose: 1 applic Docusate Sodium (Colace -) 100 mg PO BID [facility] Last Admin: 03/19/17 09:45 Dose: 100 mg Furosemide (Lasix -) 80 mg PO DAILY [facility] Last Admin: 03/19/17 09:45 Dose: 80 mg Hydralazine HCl (Apresoline -) 10 mg PO BID [facility] Last Admin: 03/19/17 09:46 Dose: 10 mg Piperacillin Sod/Tazobactam Sod (Zosyn 2.25gm Ivpb (Pre-Docked)) 50 mls @ 100 mls/hr IVPB Q8H-IV [facility] PRN Reason: Protocol Last Admin: 03/19/17 09:47 Dose: 100 mls/hr Vancomycin HCl 1,250 mg/ (Dextrose) 250 mls @ 166.667 mls/hr IVPB DAILY@1400 [facility] PRN Reason: Protocol Last Admin: 03/18/17 15:04 Dose: 166.667 mls/hr Insulin Aspart (Novolog Vial Sliding Scale -) 1 vial SQ ACHS [facility] PRN Reason: Protocol Last Admin: 03/19/17 06:01 Dose: Not Given Insulin Detemir (Levemir Vial) 50 units SQ HS [facility] Last Admin: 03/18/17 21:59 Dose: 30 units Insulin Detemir (Levemir Vial) 100 units SQ AM [facility] Last Admin: 03/19/17 07:22 Dose: Not Given Magnesium Oxide (Mag-Ox -) 400 mg PO BID [facility] Last Admin: 03/19/17 09:46 Dose: 400 mg Metoprolol Tartrate (Lopressor -) 50 mg PO DAILY [facility] Last Admin: 03/19/17 09:46 Dose: 50 mg Morphine Sulfate (Ms Contin -) 60 mg PO Q8H [facility] Last Admin: 03/19/17 09:44 Dose: 60 mg Prevacid 30 Mg Capsule - Patient Own Med 30 mg PO DAILY [facility] Last Admin: 03/19/17 09:46 Dose: 30 mg Ondansetron HCl (Zofran Injection) 4 mg IVPB Q6H PRN PRN Reason: NAUSEA Oxycodone HCl (Roxicodone -) 10 mg PO Q4H PRN PRN Reason: PAIN Last Admin: 03/19/17 05:57 Dose: 10 mg Polyethylene Glycol (Miralax (For Daily Use) -) 17 gm PO BID PRN PRN Reason: CONSTIPATION Pregabalin (Lyrica -) 50 mg PO BID [facility] Last Admin: 03/19/17 09:46 Dose: 50 mg Temazepam (Restoril -) 30 mg PO HS [facility] Last Admin: 03/18/17 21:58 Dose: 30 mg Zolpidem Tartrate (Ambien -) 5 mg PO HS PRN Last Admin: 03/19/17 00:10 Dose: 5 mg - Objective Vital Signs: Vital Signs Temperature 98.2 F 03/19/17 04:00 Pulse Rate 64 03/19/17 04:00 Respiratory Rate 18 03/19/17 04:00 Blood Pressure 139/77 03/19/17 04:00 O2 Sat by Pulse Oximetry (%) 95 03/18/17 21:00 Constitutional: Yes: No Distress, Calm Neck: Yes: Supple, Trachea Midline Cardiovascular: Yes: Regular Rate and Rhythm, S1, S2. No: Murmur Respiratory: Yes: Regular, CTA Bilaterally. No: Rales, Rhonchi, Wheezes Gastrointestinal: Yes: Normal Bowel Sounds, Soft. No: Distention, Tenderness Extremities: Yes: Other (toes with ulcerations) Edema: No Labs: CBC, BMP 03/19/17 05:40 03/19/17 05:40 Assessment/Plan All Active Problems Cellulitis and abscess of buttock (Acute) Chronic respiratory failure (Acute) Back pain (Acute) Bacteremia (Acute) CAD (coronary artery disease) (Acute) CKD (chronic kidney disease) (Acute) COPD (chronic obstructive pulmonary disease) (Acute) Cardiomyopathy (Acute) (ischemic) Cellulitis of foot (Acute) Diabetes mellitus (Acute) Diabetic foot ulcer (Acute) Hyperlipidemia (Acute) Hypertension (Acute) Leukocytosis (Acute) Perineal abscess (Acute) Peripheral neuropathic pain (Acute) Peripheral neuropathy (Acute) Sepsis (Acute) -continue IV abx, awaiting to see if needs further iV or can be switched to PO abx depending on repeat blood culture results -continue other medications
[2017-03-19] MEDS ORDERED: PT OWN MED DRAWER 7, Y5N ONE (13:31)
[2017-03-19] MEDS: VANCOMYCIN 1,250 MG in DEXTROSE 5%-WATER - 250 ML IVPB SCH (14:00)
[2017-03-19] MEDS ORDERED: INSULIN (NOVOLOG) ASPART 100 UNITS/ML 10ML VIAL ONE (17:29)
[2017-03-19] MEDS: TEMAZEPAM 15 MG CAPSULE PO SCH (21:27)
[2017-03-20] MEDS: oxyCODONE HCL 5 MG TABLET PO PRN ×2 (01:34→05:45)
[2017-03-20] MEDS: PIPERACILLIN/TAZOB 2.25 GM 50 ML IVPB SCH ×3 (01:34→17:29)
[2017-03-20] MEDS: INSULIN DETEMIR 100 UNITS/ML MDV SQ SCH (06:15)
[2017-03-20] MEDS: INSULIN SLIDING SCALE (NOVOLOG) 1 VIAL SQ SCH ×3 (06:15→16:42)
[2017-03-20] MEDS: ALBUTEROL SO4 0.083% IH SOL 2.5 MG/3 ML VIAL.NEB. NEB SCH ×3 (06:18→17:36)
[2017-03-20 08:02] LABS: MCH 28.1 pg (25.7-33.7); MCHC 32.8 g/dl (32.0-35.9); MEAN CELL VOLUME 85.7 fl (80-96); MEAN PLT VOLUME 7.7 fl (7.5-11.1); PLATELET COUNT 351 K/MM3 (134-434); RDW 17.8 % (11.9-15.9); WHITE BLOOD COUNT 14.8 K/mm3 (4.0-10.0)
[2017-03-20 08:46] LABS: ALBUMIN 2.5 g/dl (3.4-5.0); BILIRUBIN,TOTAL 0.3 mg/dL (0.2-1.0); CALCIUM 8.6 mg/dL (8.5-10.1); COCKROFT - GAULT 60.67; CREATININE 1.4 mg/dL (0.7-1.3); TOT PROT 5.8 g/dl (6.4-8.2)
[2017-03-20] MEDS: morphine SO4 SUSTAINED ACTING 30 MG TABLET.SA PO SCH ×2 (09:31→16:41)
[2017-03-20] MEDS ORDERED: PT OWN MED DRAWER 7, Y5N ONE (10:46)
[2017-03-20 10:52] VITALS: TEMP 98.5
[2017-03-20] MEDS: ACLIDINIUM BROMIDE 400 MCG/INH AERO.POWD IH SCH (10:52)
[2017-03-20] MEDS: BUDESONIDE/FORMETEROL FUMARATE 160/4.5 mcg INHALER IH SCH (10:53)
[2017-03-20] MEDS: MAGNESIUM OXIDE 400 MG TABLET (FP) PO SCH (10:54)
[2017-03-20] MEDS: PREGABALIN 50 MG CAPSULE PO SCH (10:54)
[2017-03-20] MEDS: hydrALAZINE HCL 10 MG TABLET PO SCH (10:54)
[2017-03-20] MEDS: DOCUSATE SODIUM 100 MG CAPSULE (FP) PO SCH (10:54)
[2017-03-20] MEDS: METOPROLOL TARTRATE 50 MG TABLET (FP) PO SCH (10:54)
[2017-03-20] MEDS: CLOPIDOGREL BISULFATE 75 MG TABLET (FP) PO SCH (10:54)
[2017-03-20] MEDS: ASPIRIN COATED 81 MG TABLET.EC PO SCH (10:54)
[2017-03-20] MEDS: PREVACID 30 MG PO SCH (10:55)
[2017-03-20] MEDS: FUROSEMIDE 40 MG TABLET (FP) PO SCH (10:56)
[2017-03-20] MEDS: COLLAGENASE CLOSTRIDIUM HIST. 30 GRAMS TUBE TP SCH (10:59)
[2017-03-20] MEDS ORDERED: oxyCODONE HCL 5 MG TABLET PO PRN (11:07)
--- NOTE | 2017-03-20 11:22 | PN ---
Progress Note, Physician Chief Complaint: Mr Scott is without complaint aside from chronic pain that is unchanged. No cp , sob, n/v. Eager to go home today, says he feels fine. - Current Medication List Current Medications: Active Medications Acetaminophen (Tylenol -) 650 mg PO Q4H PRN PRN Reason: FEVER OR PAIN Last Admin: 03/19/17 21:26 Dose: 650 mg Aclidinium [place] (Tudorza -) 1 puff IH BID [facility] Last Admin: 03/20/17 10:52 Dose: 1 puff Albuterol Sulfate (Ventolin 0.083% Nebulizer Soln -) 1 amp NEB QIDR [facility] Last Admin: 03/20/17 06:18 Dose: 1 amp Aspirin (Ecotrin -) 81 mg PO DAILY [facility] Last Admin: 03/20/17 10:54 Dose: 81 mg Budesonide/Formoterol Fumarate (Symbicort 160/4.5mcg -) 2 puff IH BID [facility] Last Admin: 03/20/17 10:53 Dose: 2 puff Clopidogrel Bisulfate (Plavix -) 75 mg PO DAILY [facility] Last Admin: 03/20/17 10:54 Dose: 75 mg Collagenase (Santyl -) 1 applic TP DAILY [facility] Last Admin: 03/20/17 10:59 Dose: 1 applic Docusate Sodium (Colace -) 100 mg PO BID [facility] Last Admin: 03/20/17 10:54 Dose: 100 mg Furosemide (Lasix -) 80 mg PO DAILY [facility] Last Admin: 03/20/17 10:56 Dose: 80 mg Hydralazine HCl (Apresoline -) 10 mg PO BID [facility] Last Admin: 03/20/17 10:54 Dose: 10 mg Piperacillin Sod/Tazobactam Sod (Zosyn 2.25gm Ivpb (Pre-Docked)) 50 mls @ 100 mls/hr IVPB Q8H-IV [facility] PRN Reason: Protocol Last Admin: 03/20/17 10:59 Dose: 100 mls/hr Vancomycin HCl 1,250 mg/ (Dextrose) 250 mls @ 166.667 mls/hr IVPB DAILY@1400 [facility] PRN Reason: Protocol Last Admin: 03/19/17 14:00 Dose: 166.667 mls/hr Insulin Aspart (Novolog Vial Sliding Scale -) 1 vial SQ ACHS [facility] PRN Reason: Protocol Last Admin: 03/20/17 06:15 Dose: Not Given Insulin Detemir (Levemir Vial) 50 units SQ HS [facility] Last Admin: 03/19/17 21:36 Dose: 50 units Insulin Detemir (Levemir Vial) 100 units SQ AM [facility] Last Admin: 03/20/17 06:15 Dose: Not Given Magnesium Oxide (Mag-Ox -) 400 mg PO BID [facility] Last Admin: 03/20/17 10:54 Dose: 400 mg Metoprolol Tartrate (Lopressor -) 50 mg PO DAILY [facility] Last Admin: 03/20/17 10:54 Dose: 50 mg Morphine Sulfate (Ms Contin -) 60 mg PO Q8H [facility] Last Admin: 03/20/17 09:31 Dose: 60 mg Prevacid 30 Mg Capsule - Patient Own Med 30 mg PO DAILY [facility] Last Admin: 03/20/17 10:55 Dose: 30 mg Ondansetron HCl (Zofran Injection) 4 mg IVPB Q6H PRN PRN Reason: NAUSEA Oxycodone HCl (Roxicodone -) 10 mg PO Q4H PRN PRN Reason: PAIN Polyethylene Glycol (Miralax (For Daily Use) -) 17 gm PO BID PRN PRN Reason: CONSTIPATION Pregabalin (Lyrica -) 50 mg PO BID [facility] Last Admin: 03/20/17 10:54 Dose: 50 mg Temazepam (Restoril -) 30 mg PO [facility] Last Admin: 03/19/17 21:27 Dose: 30 mg - Objective Vital Signs: Vital Signs Temperature 98.5 F 03/20/17 10:00 Pulse Rate 70 03/20/17 10:00 Respiratory Rate 18 03/20/17 10:00 Blood Pressure 134/80 03/20/17 10:00 O2 Sat by Pulse Oximetry (%) 95 03/19/17 20:19 Constitutional: Yes: No Distress, Calm, Obese Cardiovascular: Yes: Regular Rate and Rhythm. No: Gallop, Murmur, Rub Respiratory: Yes: Regular, CTA Bilaterally. No: Rales, Rhonchi, Wheezes Gastrointestinal: Yes: Normal Bowel Sounds, Soft. No: Distention, Tenderness Extremities: Yes: WNL Edema: No Labs: CBC, BMP 03/20/17 07:15 03/20/17 07:15 Problem List - Problems (1) Perineal abscess Code(s): L02.215 - CUTANEOUS ABSCESS OF PERINEUM (2) Sepsis Code(s): A41.9 - SEPSIS, UNSPECIFIED ORGANISM (3) CAD (coronary artery disease) Code(s): I25.10 - ATHSCL HEART DISEASE OF [place] CORONARY ARTERY W/O ANG PCTRS Qualifiers: (4) CKD (chronic kidney disease) Code(s): N18.9 - CHRONIC KIDNEY DISEASE, UNSPECIFIED Qualifiers: Chronic kidney disease stage: stage 2 (mild) Qualified Code(s): N18.2 - Chronic kidney disease, stage 2 (mild) (5) COPD (chronic obstructive pulmonary disease) Code(s): J44.9 - CHRONIC OBSTRUCTIVE PULMONARY DISEASE, UNSPECIFIED (6) Congestive heart failure (CHF) Code(s): I50.9 - HEART FAILURE, UNSPECIFIED Qualifiers: Congestive heart failure type: systolic Congestive heart failure chronicity: chronic Qualified Code(s): I50.22 - Chronic systolic ( congestive) heart failure (7) Diabetes mellitus Code(s): E11.9 - TYPE 2 DIABETES MELLITUS WITHOUT COMPLICATIONS Qualifiers: Diabetes mellitus type: type 2 Diabetes mellitus complication status: with circulatory complication Diabetes mellitus complication detail: with peripheral angiopathy with gangrene Diabetes mellitus handtools repairer insulin use : with handtools repairer use Qualified Code(s): E11.52 - Type 2 diabetes mellitus with diabetic peripheral angiopathy with gangrene; Z79.4 - tape duplicator ( current) use of insulin (8) Hypertension Code(s): I10 - ESSENTIAL (PRIMARY) HYPERTENSION (9) Chronic respiratory failure Code(s): J96.10 - CHRONIC RESPIRATORY FAILURE, UNSP W HYPOXIA OR HYPERCAPNIA Qualifiers: Respiratory failure complication: hypoxia Qualified Code(s): J96.11 - Chronic respiratory failure with hypoxia Assessment/Plan (1) Perineal abscess Assessment/Plan: -s/p I&D -ID following Code(s): L02.215 - CUTANEOUS ABSCESS OF PERINEUM (2) Sepsis Assessment/Plan: -repeat blood cultures negative but still with leukocytosis -patient feels well and asking to go home -await ID evaluation, possible discharge today Code(s): A41.9 - SEPSIS, UNSPECIFIED ORGANISM (3) CAD (coronary artery disease) Assessment/Plan: -quiescent -continue home regimen Code(s): I25.10 - ATHSCL HEART DISEASE OF [place] CORONARY ARTERY W/O ANG PCTRS Qualifiers: (4) CKD (chronic kidney disease) Assessment/Plan: -treat sepsis -at baseline Code(s): N18.9 - CHRONIC KIDNEY DISEASE, UNSPECIFIED Qualifiers: Chronic kidney disease stage: stage 2 (mild) Qualified Code(s): N18.2 - Chronic kidney disease, stage 2 (mild) (5) COPD (chronic obstructive pulmonary disease) Assessment/Plan: -not in exacerbation -continue oxygen and home regimen Code(s): J44.9 - CHRONIC OBSTRUCTIVE PULMONARY DISEASE, UNSPECIFIED (6) Congestive heart failure (CHF) Assessment/Plan: -continue lasix and blood pressure control Code(s): I50.9 - HEART FAILURE, UNSPECIFIED Qualifiers: Congestive heart failure type: systolic Congestive heart failure chronicity: chronic Qualified Code(s): I50.22 - Chronic systolic ( congestive) heart failure (7) Diabetes mellitus Assessment/Plan: -diabetic diet -continue levemir -FSBS and SSI -wound care consulted and appreciate assistance Code(s): E11.9 - TYPE 2 DIABETES MELLITUS WITHOUT COMPLICATIONS Qualifiers: Diabetes mellitus type: type 2 Diabetes mellitus complication status: with circulatory complication Diabetes mellitus complication detail: with peripheral angiopathy with gangrene Diabetes mellitus handtools repairer insulin use : with handtools repairer use Qualified Code(s): E11.52 - Type 2 diabetes mellitus with diabetic peripheral angiopathy with gangrene; Z79.4 - tape duplicator ( current) use of insulin (8) Hypertension Assessment/Plan: -continue metoprolol -monitor Code(s): I10 - ESSENTIAL (PRIMARY) HYPERTENSION (9) Chronic respiratory failure Assessment/Plan: -continue oxygen support Code(s): J96.10 - CHRONIC RESPIRATORY FAILURE, UNSP W HYPOXIA OR HYPERCAPNIA Qualifiers: Respiratory failure complication: hypoxia Qualified Code(s): J96.11 - Chronic respiratory failure with hypoxia Dispo -possible discharge today pending ID recommendations
[2017-03-20 12:17] LABS: METAMYELOCYTE 3 % (0-2)
[2017-03-20 12:18] LABS: PLATELET ESTIMATE ADEQUATE (NORMAL)
[2017-03-20] MEDS: VANCOMYCIN 1,250 MG in DEXTROSE 5%-WATER - 250 ML IVPB SCH (13:55)
--- NOTE | 2017-03-20 14:46 | PN ---
Progress Note (short form) - Note Progress Note: PT seen and examined today. He states that he started hyperbaric treatment 3 weeks ago and has been seen by podiatry in the wound center. Chart was reviewed and there have been visits with Dr. Velez in the past. He became ill and was admitted and treated for a left perineal abscess on 03/15. The patient is awaiting discharge after seen by ID. Vital Signs Period Temp Pulse Resp BP Sys/Chandra Pulse Ox Last 24 Hr 98.1 F-98.8 F 59-70 18-20 110-149/62-80 95 PE: right great toe with dry eschar: no erythema/no swelling Left second toe with soft necrotic tissue over his second toe, no erythema mild swelling to foot/toe CBC, BMP 03/20/17 07:15 03/20/17 07:15 A/P: Pt with left second toe chronic infection, s/p perineal abscess I&D 03/[address] Carson and may proceed with angiogram, during this admission or as an outpatient. Discharge instructions completed for local wound care and follow-up in the wound clinic next week
[2017-03-20 15:25] VITALS: BP 138/65; PULSE 64
--- NOTE | 2017-03-20 17:07 | PN ---
Progress Note, Physician History of Present Illness: stable no new issues - Current Medication List Current Medications: Active Medications Acetaminophen (Tylenol -) 650 mg PO Q4H PRN PRN Reason: FEVER OR PAIN Last Admin: 03/19/17 21:26 Dose: 650 mg Aclidinium Freedom (Tudorza -) 1 puff IH BID [facility] Last Admin: 03/20/17 10:52 Dose: 1 puff Albuterol Sulfate (Ventolin 0.083% Nebulizer Soln -) 1 amp NEB QIDR [facility] Last Admin: 03/20/17 11:15 Dose: 1 amp Aspirin (Ecotrin -) 81 mg PO DAILY [facility] Last Admin: 03/20/17 10:54 Dose: 81 mg Budesonide/Formoterol Fumarate (Symbicort 160/4.5mcg -) 2 puff IH BID [facility] Last Admin: 03/20/17 10:53 Dose: 2 puff Clopidogrel Bisulfate (Plavix -) 75 mg PO DAILY [facility] Last Admin: 03/20/17 10:54 Dose: 75 mg Collagenase (Santyl -) 1 applic TP DAILY [facility] Last Admin: 03/20/17 10:59 Dose: 1 applic Docusate Sodium (Colace -) 100 mg PO BID [facility] Last Admin: 03/20/17 10:54 Dose: 100 mg Furosemide (Lasix -) 80 mg PO DAILY [facility] Last Admin: 03/20/17 10:56 Dose: 80 mg Hydralazine HCl (Apresoline -) 10 mg PO BID [facility] Last Admin: 03/20/17 10:54 Dose: 10 mg Piperacillin Sod/Tazobactam Sod (Zosyn 2.25gm Ivpb (Pre-Docked)) 50 mls @ 100 mls/hr IVPB Q8H-IV RADHA PRN Reason: Protocol Last Admin: 03/20/17 10:59 Dose: 100 mls/hr Vancomycin HCl 1,250 mg/ (Dextrose) 250 mls @ 166.667 mls/hr IVPB DAILY@1400 [facility] PRN Reason: Protocol Last Admin: 03/20/17 13:55 Dose: 166.667 mls/hr Insulin Aspart (Novolog Vial Sliding Scale -) 1 vial SQ ACHS [facility] PRN Reason: Protocol Last Admin: 03/20/17 16:42 Dose: 4 units Insulin Detemir (Levemir Vial) 50 units SQ HS [facility] Last Admin: 03/19/17 21:36 Dose: 50 units Insulin Detemir (Levemir Vial) 100 units SQ AM [facility] Last Admin: 03/20/17 06:15 Dose: Not Given Magnesium Oxide (Mag-Ox -) 400 mg PO BID [facility] Last Admin: 03/20/17 10:54 Dose: 400 mg Metoprolol Tartrate (Lopressor -) 50 mg PO DAILY [facility] Last Admin: 03/20/17 10:54 Dose: 50 mg Morphine Sulfate (Ms Contin -) 60 mg PO Q8H [facility] Last Admin: 03/20/17 16:41 Dose: 60 mg Prevacid 30 Mg Capsule - Patient Own Med 30 mg PO DAILY [facility] Last Admin: 03/20/17 10:55 Dose: 30 mg Ondansetron HCl (Zofran Injection) 4 mg IVPB Q6H PRN PRN Reason: NAUSEA Oxycodone HCl (Roxicodone -) 10 mg PO Q4H PRN PRN Reason: PAIN Last Admin: 03/20/17 14:10 Dose: 10 mg Polyethylene Glycol (Miralax (For Daily Use) -) 17 gm PO BID PRN PRN Reason: CONSTIPATION Pregabalin (Lyrica -) 50 mg PO BID [facility] Last Admin: 03/20/17 10:54 Dose: 50 mg Temazepam (Restoril -) 30 mg PO [facility] Last Admin: 03/19/17 21:27 Dose: 30 mg - Objective Vital Signs: Vital Signs Temperature 98.5 F 03/20/17 14:22 Pulse Rate 64 03/20/17 14:22 Respiratory Rate 20 03/20/17 14:22 Blood Pressure 138/65 03/20/17 14:22 O2 Sat by Pulse Oximetry (%) 98 03/20/17 09:00 Constitutional: Yes: No Distress, Calm Cardiovascular: Yes: Regular Rate and Rhythm Respiratory: Yes: Regular, CTA Bilaterally Gastrointestinal: Yes: Normal Bowel Sounds, Soft Musculoskeletal: Yes: Other Extremities: Yes: Other Neurological: Yes: Alert, Oriented Psychiatric: Yes: Alert, Oriented Labs: CBC, BMP 03/20/17 07:15 03/20/17 07:15 Assessment/Plan Problem List - Problems (1) Perineal abscess Code(s): L02.215 - CUTANEOUS ABSCESS OF PERINEUM (2) Sepsis Code(s): A41.9 - SEPSIS, UNSPECIFIED ORGANISM (3) CAD (coronary artery disease) Code(s): I25.10 - ATHSCL HEART DISEASE OF [place] CORONARY ARTERY W/O ANG PCTRS Qualifiers: (4) CKD (chronic kidney disease) Code(s): N18.9 - CHRONIC KIDNEY DISEASE, UNSPECIFIED Qualifiers: Chronic kidney disease stage: stage 2 (mild) Qualified Code(s): N18.2 - Chronic kidney disease, stage 2 (mild) (5) COPD (chronic obstructive pulmonary disease) Code(s): J44.9 - CHRONIC OBSTRUCTIVE PULMONARY DISEASE, UNSPECIFIED (6) Congestive heart failure (CHF)l Code(s): I50.9 - HEART FAILURE, UNSPECIFIED Qualifiers: Congestive heart failure type: systolic Congestive heart failure chronicity: chronic Qualified Code(s): I50.22 - Chronic systolic ( congestive) heart failure (7) Diabetes mellitus Code(s): E11.9 - TYPE 2 DIABETES MELLITUS WITHOUT COMPLICATIONS Qualifiers: Diabetes mellitus type: type 2 Diabetes mellitus complication status: with circulatory complication Diabetes mellitus complication detail: with peripheral angiopathy with gangrene Diabetes mellitus marine oil terminal superintendent insulin use : with marine oil terminal superintendent use Qualified Code(s): E11.52 - Type 2 diabetes mellitus with diabetic peripheral angiopathy with gangrene; Z79.4 - assisted ( current) use of insulin (8) Hypertension Code(s): I10 - ESSENTIAL (PRIMARY) HYPERTENSION (9) Chronic respiratory failure Code(s): J96.10 - CHRNIC RESPIRATORY FAILURE, UNSP W HYPOXIA OR HYPERCAPNIA Qualifiers: Respiratory failure complication: hypoxia Qualified Code(s): J96.11 - Chronic respiratory failure with hypoxia plan cx result noted repeat blood cx result noted patient can be discharged on 500mg every other day of augmentin for 3 more days wound care
--- NOTE | 2017-03-20 17:15 | DS ---
Physical Examination Vital Signs: Vital Signs Temperature 98.5 F 03/20/17 14:22 Pulse Rate 64 03/20/17 14:22 Respiratory Rate 20 03/20/17 14:22 Blood Pressure 138/65 03/20/17 14:22 O2 Sat by Pulse Oximetry (%) 98 03/20/17 09:00 Labs: CBC, BMP 03/20/17 07:15 03/20/17 07:15 Discharge Summary Reason For Visit: CELLULITIS; ABSCESS OF BUTTOCKS Current Active Problems Cellulitis and abscess of buttock (Acute) Chest pain (Acute) Chronic respiratory failure (Acute) Hospital Course: Refer to progress note from today but in short Mr Scott is a 67 year old male who came in with inguinal abscess causing sepsis. He was admitted to the hospital and started on broad spectrum antibiotics by ID. He was seen by urology and underwent I&D. He was doing well but he had sepsis with 4/4 blood cultures growing staph epi. He was continued on IV antibiotics for a total of 7 days. He is feeling better and is safe for discharge home on oral antibiotics. 32 minutes spent in preparation of this discharge Condition: Good - Instructions Diet, Activity, Other Instructions: Follow with Dr. Carson in the wound clinic next week, call to schedule follow up appointment Continue santyl to left second toe and dry dressing to right great toe. Referrals: Isiah Carson MD [Staff Physician] - Vin Isbell MD [Primary Care Provider] - Disposition: HOME - Home Medications Comprehensive Discharge Medication List: Ambulatory Orders Clopidogrel Bisulfate [Plavix -] 75 mg PO DAILY #20 tablet 02/19/14 Aspirin [Ecotrin] 81 mg PO DAILY 04/29/15 Temazepam [Restoril -] 30 mg PO BID 08/24/15 Docusate Sodium [Colace -] 100 mg PO BID capsule 08/26/15 Insulin Aspart [Novolog] 0 unit SQ PRN PRN 01/10/16 Aclidinium Matthews [Tudorza -] 1 inh PO BID 08/13/16 Budesonide/Formeterol Fumarate [SYMBICORT 160/4.5mcg -] 2 inh PO BID 08/13/16 Albuterol 0.083% Nebulizer Clarisse [Ventolin 0.083% Nebulizer Soln -] 1 amp NEB QIDR amp 10/16/16 Hydralazine HCl [Apresoline -] 10 mg PO BID #180 tablet 08/14/16 Insulin (Levemir) [Levemir Vial] 50 units SQ HS ml 08/14/16 Polyethylene Glycol 3350 [Miralax 119 gm Btl -] 17 gm PO BID PRN #0 bottle 08/14 Collagenase Clostridium Hist. [Santyl -] 1 applic TP DAILY #1 tube 01/27/17 Magnesium Oxide [Mag-Ox -] 400 mg PO BID #60 tablet 01/27/17 Furosemide [Lasix -] 80 mg PO DAILY 02/21/17 Insulin (Levemir) [Levemir Vial] 100 unit SQ AM 02/21/17 Lansoprazole [Prevacid] 30 mg PO DAILY 03/13/17 Metoprolol Tartrate 50 mg PO DAILY 03/13/17 Pregabalin [Lyrica] 50 mg PO BID 03/13/17 Zolpidem Tartrate [Ambien] 10 mg PO HS PRN 03/13/17 Amoxicillin/Potassium Clav [Augmentin 500-125 Tablet] 1 each PO Q48H #3 tablet 03/20/17 Morphine *Sr* [MS Contin -] 60 mg PO Q8H tab.sa MDD 180mg 03/20/17
== END 2017-03-20 18:18 | disposition home health service (06) | DRG 872 ==
LOC: JER 10:50 → JERBED 15:57 → J5S 17:44
PROVIDERS: ADMIT Internal Medicine; ATTEND Internal Medicine
PROC: 0W9M0ZZ Drainage of Male Perineum, Open Approach (ICD-10-PCS; principal; 2017-03-15)
DX: A41.9 Sepsis, unspecified organism (principal); E11.52 Type 2 diabetes mellitus with diabetic peripheral angiopathy with gangrene; I42.8 Other cardiomyopathies; L02.215 Cutaneous abscess of perineum; J96.11 Chronic respiratory failure with hypoxia; I13.0 Hypertensive heart and chronic kidney disease with heart failure and stage 1 through stage 4 chronic kidney disease, or unspecified chronic kidney disease; I50.22 Chronic systolic (congestive) heart failure; J44.9 Chronic obstructive pulmonary disease, unspecified; I25.10 Atherosclerotic heart disease of native coronary artery without angina pectoris; G62.9 Polyneuropathy, unspecified; M54.16 Radiculopathy, lumbar region; E78.5 Hyperlipidemia, unspecified; E11.22 Type 2 diabetes mellitus with diabetic chronic kidney disease; N18.2 Chronic kidney disease, stage 2 (mild); Z86.73 Personal history of transient ischemic attack (TIA), and cerebral infarction without residual deficits; Z95.5 Presence of coronary angioplasty implant and graft; Z99.81 Dependence on supplemental oxygen; Z87.891 Personal history of nicotine dependence
CPT/HCPCS: 36415; 71010-TC; 76870-TC; 80048; 80053; 81003; 83605; 83735; 84100; 85025; 87040; 87070; 87186; 87205; 93005; 93010; 94640; 99284-25; G0277

== ENCOUNTER 2017-04-13 08:34 | Day surgery (SDC) | payer OTHER ==
[2017-04-12 09:42] VITALS: BMI 29.9
[2017-04-13] MEDS ORDERED: HEPARIN NA (PORCINE) 5,000 UNITS/ML 1ML VIAL ONE ×2 (09:48→10:09)
[2017-04-13] MEDS ORDERED: LIDOCAINE HCL 1%, 10 MG/ML (20ML VIAL) ONE ×2 (09:48→10:09)
[2017-04-13] MEDS ORDERED: ceFAZolin SODIUM 1 GM VIAL IVPB ONE (10:34)
[2017-04-13] MEDS ORDERED: LIDOCAINE HCL 1%, 10 MG/ML (50 mL VIAL) INF ONE (10:42)
[2017-04-13] MEDS ORDERED: LIDOCAINE HCL 1%, 10 MG/ML (50 mL VIAL) IJ ONE (10:42)
[2017-04-13] MEDS ORDERED: oxyCODONE HCL 5 MG TABLET PO PRN (11:54)
[2017-04-13] MEDS ORDERED: ONDANSETRON 4 MG/2 ML VIAL IVPUSH PRN (11:54)
--- NOTE | 2017-04-13 11:58 | OP ---
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
[2017-04-13] MEDS ORDERED: LACTATED RINGERS SOLUTION 1,000 ML IV SCH (12:00)
[2017-04-13] MEDS ORDERED: CLOPIDOGREL BISULFATE 75 MG TABLET (FP) PO ONE (12:02)
--- NOTE | 2017-04-13 12:03 | HP ---
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 No: AFIB Pulmonary: Yes: COPD Gastrointestinal: Yes: Other (Colitis) Renal/: Yes: Renal Inusuff, Other (hyperkalemia) Psych: Yes: Addictions Musculoskeletal: Yes: Other (Lumbar radiculopathy) Endocrine: Yes: Diabetes Mellitus - Past Surgical History Past Surgical History: Yes: Stent - Smoking History Smoking history: Former smoker Have you smoked in the past 12 months: No Aproximately how many cigarettes per day: 30 If you are a former smoker, when did you quit?: 2017 - Alcohol/Substance Use Hx Alcohol Use: No History of Substance Use: reports: None - Social History ADL: Independent History of Recent Travel: No Home Medications - Allergies Allergies/Adverse Reactions: Allergies Allergy/AdvReac Type Severity Reaction Status Date / Time pantoprazole sodium Allergy Verified 04/13/17 09:18 [From Protonix] - Home Medications Home Medications: Ambulatory Orders Clopidogrel Bisulfate [Plavix -] 75 mg PO DAILY #20 tablet 02/19/14 Aspirin [Ecotrin] 81 mg PO DAILY 04/29/15 Temazepam [Restoril -] 30 mg PO BID 08/24/15 Docusate Sodium [Colace -] 100 mg PO BID capsule 08/26/15 Hydralazine HCl [Apresoline -] 10 mg PO BID #180 tablet 08/14/16 Polyethylene Glycol 3350 [Miralax 119 gm Btl -] 17 gm PO BID PRN #0 bottle 08/14 Magnesium Oxide [Mag-Ox -] 400 mg PO BID #60 tablet 01/27/17 Furosemide [Lasix -] 80 mg PO DAILY 02/21/17 Lansoprazole [Prevacid] 30 mg PO DAILY 03/13/17 Metoprolol Tartrate 50 mg PO DAILY 03/13/17 Pregabalin [Lyrica] 50 mg PO BID 03/13/17 Zolpidem Tartrate [Ambien] 10 mg PO HS PRN 03/13/17 Morphine *Sr* [MS Contin -] 60 mg PO Q8H tab.sa MDD 180mg 03/20/17 Collagenase Clostridium Hist. [Santyl] 1 applic TP DAILY #90 oint...g. 04/04/17 Insulin (Levemir) [Levemir Vial] 50 units SQ BID 04/12/17 Family Disease History - Family Disease History Family Disease History: Diabetes: Grandparent, Sister (COPD), CA: Father, Respiratory: Sister, Other: Mother (CVA) Physical Examination Vital Signs: Vital Signs Temperature 98.2 F 04/13/17 09:13 Pulse Rate 68 04/13/17 09:13 Respiratory Rate 20 04/13/17 09:13 Blood Pressure 139/69 04/13/17 09:13 O2 Sat by Pulse Oximetry (%) 96 04/13/17 09:12 Constitutional: Yes: Well Nourished Eyes: Yes: WNL HENT: Yes: WNL Neck: Yes: WNL Cardiovascular: Yes: WNL Respiratory: Yes: WNL Gastrointestinal: Yes: WNL Extremities: Yes: Other (Left foot ulcer - 2nd toe) Edema: No Peripheral Pulses WNL: No Assessment/Plan Left foot ulcers 1. For angiogram today
[2017-04-13] MEDS ORDERED: CLOPIDOGREL BISULFATE 75 MG TABLET (FP) ONE (12:48)
--- NOTE | 2017-04-13 12:49 | OP ---
DATE OF OPERATION: 04/13/2017 PREOPERATIVE DIAGNOSIS: Left foot ulcers. POSTOPERATIVE DIAGNOSIS: Left foot uclers. PROCEDURE: Aortogram, left lower extremity angiogram, peroneal artery athrectomy with angioplasty, anterior tibial artery angioplasty. SURGEON: Isiah Ramey DO ANESTHESIA: Fractional. BLOOD LOSS: 50 mL. INDICATIONS: The patient is a 67-year-old male who has left foot ulcers on the 2nd toe and his medial foot aspect. He had a preoperative ultrasound performed showing that he has extensive tibial disease. It was decided that he would need an outpatient angiogram. The patient was consented for this procedure understanding all risks, benefits, and alternatives and was then taken to the operating room. DESCRIPTION OF PROCEDURE: Once in the operating room, he was laid on the operating room table in a supine manner. The area of the left and right groin was prepped and draped in a sterile surgical manner. We then went ahead and injected 10 mL of lidocaine 2% over the right common femoral artery. We then went ahead and took our micropuncture needle and punctured the right common femoral artery. Micropuncture wire was inserted. Micropuncture sheath was inserted, and a traditional 5-American sheath was inserted. We then placed a 0.035 floppy guidewire up into the aorta followed by an Omni Flush catheter. We then shot an aortogram through the Omni Flush catheter, and the aorta and the iliac arteries bilaterally were without any disease. We then took our 0.035 guidewire and went up and over to the left common femoral artery, and our Omni Flush catheter was placed over that. We then shot an angiogram of the left lower extremity showing that the common femoral artery, the profunda, the SFA were patent. The popliteal artery stent is patent. Below knee popliteal artery was patent. The anterior tibial artery was opened at its origin and then was occluded and came back about the ankle going into the foot. Peroneal artery had multiple occlusions going down into the foot. There was no posterior tibial artery present. At this point, we placed a 0.035 stiff guidewire into the SFA and removed our Omni Flush catheter and placed a 6 x 45 crossover sheath. Then 5000 units of IV heparin were administered to the patient. We then went ahead and brought our 0.035 stiff guidewire down to the below knee popliteal artery and selectively cannulated it into the anterior tibial artery followed by a Quick-Cross. We were able to take this wire all the way down into the foot. We then exchanged for a 300 Dope Mixer wire. We then used a 2.5 x 210 NanoCross balloon was performed angioplasty of the anterior tibial artery. Completion angiogram now showed that the anterior tibial artery was completely patent. We then took our Dope Mixer wire and placed it down into the peroneal artery all the way down and above the ankle. We then exchanged a 4-0 ViperWire. We then went ahead and used a [employer] orbital athrectomy device and performed orbital athrectomy of the mid to distal peroneal artery. We then used the 2.5 x 210 NanoCross balloon and performed angioplasty of the entire peroneal artery. Completion angiogram now showed that both vessels were patent all the way down into the foot, and there was good runoff into the foot. Anterior tibial artery was now in continuity. At this point, we brought our sheath up and over. StarClose device was successfully deployed in the right common femoral artery. Pressure was held for 5 minutes. After, there was no bleeding, the area was wet and dried, and Dermabond was placed. The patient tolerated the procedure with no complication. The patient was transferred to the PACU in stable condition. ISIAH RAMEY DO [id number]
[2017-04-13 14:44] VITALS: BP 123/60; PULSE 64; TEMP 98.2
== END 2017-04-13 14:30 | disposition home or self-care (01) ==
LOC: JASU-SURG 08:34
PROVIDERS: ATTEND Surgery Vascular Surgery
PROC: 047Q3ZZ Dilation of Left Anterior Tibial Artery, Percutaneous Approach (ICD-10-PCS; 2017-04-13)
PROC: [UNRECOGNIZED PROCEDURE] (principal; 2017-04-13 10:00)
DX: L97.529 Non-pressure chronic ulcer of other part of left foot with unspecified severity (principal); I73.89 Other specified peripheral vascular diseases; I77.1 Stricture of artery; E11.9 Type 2 diabetes mellitus without complications; Z87.891 Personal history of nicotine dependence; I77.89 Other specified disorders of arteries and arterioles
CPT/HCPCS: 37229; 37232; C1725; 76000-TC; 94760; J1644

== ENCOUNTER 2017-05-17 03:53 | Inpatient (IN) | payer OTHER ==
[2017-05-17] MEDS ORDERED: SODIUM CHLORIDE 0.9% 1000 ML INFUS.BAG IV PRN (04:06)
[2017-05-17] MEDS ORDERED: ACETAMINOPHEN 1000 MG/100 ML VIAL (NON FORMULARY) IVPB ONE (04:11)
--- NOTE | 2017-05-17 04:11 | PDOC ---
History of Present Illness - General History Source: Patient Exam Limitations: No Limitations - History of Present Illness Initial Comments: 05/17/17 04:27 Patient is a 67 year old male with significant medical hx of severe COPD (O2 at home), DM, CKD, CVA (10/2014 without residual deficits), CAD s/p stents x 5, s/p STEMI - mLAD PCI 2011, ischemic CM with systolic CHF, and extensive smoking history (5 PPD for 50 years) who is presenting to the ED with fever and shortness of breath. Pts temperature was measured to be 102.6 while in the ED. Pt has very minimal complaints of anything, but he presents tachypneic and tachycardic. The patient denies any chest pain or abdominal pain. He denies any fever, chills , nausea, vomiting, or diarrhea. <Sharifa Edward - Last Filed: 05/17/17 05:50> - General History Source: EMS <Artis Rosado - Last Filed: 05/17/17 19:09> - General Chief Complaint: SIRS, Suspected/Possible Stated Complaint: RESPIRATORY/SHAKING Time Seen by Provider: 05/17/17 04:06 Past History <Sharifa Edward - Last Filed: 05/17/17 05:50> - Past Medical History Anemia: No Asthma: No Cancer: No Cardiac Disorders: Yes (9 stents, DE, CAD) CVA: Yes (CVA IN 2014 W/O DEFICIT) COPD: Yes CHF: No Dementia: No Diabetes: Yes (IDDM) GI Disorders: Yes (colitis NOW CONSTIPATION) Disorders: Yes (ON FLOMAX; EDEMA) HTN: Yes Hypercholesterolemia: Yes Kidney Stones: Yes Liver Disease: No Suicide Attempt (Hx): No Seizures: No Thyroid Disease: No - Surgical History Abdominal Surgery: No Appendectomy: No Cardiac Surgery: Yes (stents x 9) Cholecystectomy: No Lung Surgery: No Neurologic Surgery: No Orthopedic Surgery: No - Immunization History Immunization Up to Date: No - Psycho/Social/Smoking Cessation Hx Anxiety: No Suicidal Ideation: No Smoking Status: No Smoking History: Former smoker Have you smoked in the past 12 months: No Number of Cigarettes Smoked Daily: 30 If you are a former smoker, when did you quit?: 2017 Cigars Per Day: 0 Information on smoking cessation initiated: No 'Breaking Loose' booklet given: 01/12/17 Hx Alcohol Use: No Drug/Substance Use Hx: No Substance Use Type: None Hx Substance Use Treatment: No <AlonzoArtsi - Last Filed: 05/17/17 19:09> - Past Medical History Allergies/Adverse Reactions: Allergies Allergy/AdvReac Type Severity Reaction Status Date / Time pantoprazole sodium Allergy Verified 05/17/17 05:42 [From Protonix] Home Medications: Ambulatory Orders Clopidogrel Bisulfate [Plavix -] 75 mg PO DAILY #20 tablet 02/19/14 Aspirin [Ecotrin] 81 mg PO DAILY 04/29/15 Temazepam [Restoril -] 30 mg PO BID 08/24/15 Docusate Sodium [Colace -] 100 mg PO BID capsule 08/26/15 Hydralazine HCl [Apresoline -] 10 mg PO BID #180 tablet 08/14/16 Polyethylene Glycol 3350 [Miralax 119 gm Btl -] 17 gm PO BID PRN #0 bottle 08/14 Magnesium Oxide [Mag-Ox -] 400 mg PO BID #60 tablet 01/27/17 Furosemide [Lasix -] 80 mg PO DAILY 02/21/17 Lansoprazole [Prevacid] 30 mg PO DAILY 03/13/17 Metoprolol Tartrate 50 mg PO DAILY 03/13/17 Pregabalin [Lyrica] 50 mg PO BID 03/13/17 Zolpidem Tartrate [Ambien] 10 mg PO HS PRN 03/13/17 Morphine *Sr* [MS Contin -] 60 mg PO Q8H tab.sa MDD 180mg 03/20/17 Collagenase Clostridium Hist. [Santyl] 1 applic TP DAILY #90 oint...g. 04/04/17 Insulin (Levemir) [Levemir Vial] 50 units SQ BID 04/12/17 Levofloxacin [Levaquin] 1 tab PO DAILY 05/16/17 Review of Systems - Review of Systems Able to Perform ROS?: Yes Comments:: 05/17/17 04:27 CONSTITUTIONAL: Present: fever Absent: no chills, no fatigue EYES: Absent: visual changes ENT: Absent: ear pain, no sore throat CARDIOVASCULAR: Absent: chest pain, no palpitations RESPIRATORY: Present: SOB Absent: cough, GI: Absent: abdominal pain, no nausea, no vomiting, no constipation, no diarrhea GENITOURINARY: Absent: dysuria, no frequency, no hematuria MUSKULOSKELETAL: Absent: back pain, no arthralgia, no myalgia SKIN: Absent: rash NEURO: Absent: headache <Sharifa Edward - Last Filed: 05/17/17 05:50> *Physical Exam - Vital Signs Last Vital Signs Temp Pulse Resp BP Pulse Ox 102.6 F H 120 H 16 142/103 96 05/17/17 03:59 05/17/17 03:59 05/17/17 03:59 05/17/17 03:59 05/17/17 03:59 - Physical Exam Comments: 05/17/17 04:29 GENERAL: Well developed, well nourished. No acute distress. +Somnolent but arousable. Answers questions slowly but appropriately. HEENT: Normocephalic, atraumatic. PERRLA, EOMI. No conjunctival pallor. Sclera are non- icteric. Moist mucous membranes. Oropharynx is clear. NECK: Supple. Full ROM. No JVD. Carotid pulses 2+ and symmetric, without bruits. No thyromegaly. No lymphadenopathy. CARDIOVASCULAR: +tachycardiac. No murmurs, rubs, or gallops. Distal pulses are 2+ and symmetric. PULMONARY: +Bilateral rhonchi. No wheezing, rales. ABDOMINAL: Soft. Non-tender. Non-distended. No rebound or guarding. No organomegaly. Normoactive bowel sounds. MUSCULOSKELETAL Normal range of motion at all joints. No bony deformities or tenderness. No CVA tenderness. EXTREMITIES: No cyanosis. No clubbing. No edema. No calf tenderness. SKIN: Warm and dry. Normal capillary refill. No rashes. No jaundice. NEUROLOGICAL: awake, appropriate. PSYCHIATRIC: Cooperative. Good eye contact. <Sharifa Edward - Last Filed: 05/17/17 05:50> - Vital Signs Last Vital Signs Temp Pulse Resp BP Pulse Ox 102.6 F H 120 H 16 142/103 96 05/17/17 03:59 05/17/17 03:59 05/17/17 03:59 05/17/17 03:59 05/17/17 03:59 <Artis Rosado - Last Filed: 05/17/17 19:09> Heart Score/ECG Review - ECG Intrepretation Comment:: 05/17/17 04:33 EKG was reviewed by Dr. Rosado at 4:02. Impression: Sinus tachycardia with 1st degree AV block with fusion complexes. Right bundle branch block. Bifascicular block. Inferior infarct, age undetermined. <Sharifa Edward - Last Filed: 05/17/17 05:50> ED Treatment Course - LABORATORY CBC & Chemistry Diagram: 05/17/17 04:00 05/17/17 04:00 - ADDITIONAL ORDERS Additional order review: 05/17/17 04:00 RBC 4.05 MCV 88.2 MCHC 31.0 L RDW 16.7 H MPV 8.4 Neutrophils % Y Lymphocytes % Y - Medications Given in the ED: ED Medications Discontinued Medications Generic Name Dose Route Start Last Admin Trade Name Freq PRN Reason Stop Dose Admin Acetaminophen 1,000 mg 05/17/17 04:11 05/17/17 04:25 Ofirmev Injection - IVPB 05/17/17 04:12 1,000 mg ONCE ONE Administration <Sharifa Edward - Last Filed: 05/17/17 05:50> - LABORATORY CBC & Chemistry Diagram: 05/17/17 04:00 05/17/17 04:00 - RADIOLOGY Radiology Studies Ordered: Category Date Time Status CHEST X-RAY PORTABLE* [RAD] Stat Radiology 05/17/17 04:06 Ordered <Artis Rosado - Last Filed: 05/17/17 19:09> Medical Decision Making - Medical Decision Making 05/17/17 05:50 Dr. Isbell was paged and notified via phone service. <Sharifa Edward - Last Filed: 05/17/17 05:50> - Medical Decision Making 05/17/17 19:09 Dr. Rosado: The scribe's documentation has been prepared under my direction and personally reviewed by me in its entirery. I confirm that the note above accurately reflects all work, treatment, procedures, and medical decision making performed by me. <Artis Rosado - Last Filed: 05/17/17 19:09> *DC/Admit/Observation/Transfer - Attestations Scribe Attestion: 05/17/17 04:35 Documentation prepared by Sharifa Edward, acting as pediatrician/medical doctor for Artis Rosado MD. <Sharifa Edward - Last Filed: 05/17/17 05:50> - Discharge Dispostion Admit: Yes <Artis Rosado - Last Filed: 05/17/17 19:09> Diagnosis at time of Disposition: Pneumonia Qualifiers: Pneumonia type: due to unspecified organism Laterality: right Lung location: upper lobe of lung Qualified Code(s): J18.1 - Lobar pneumonia, unspecified organism - Referrals
[2017-05-17 04:16] LABS: MCH 27.4 pg (25.7-33.7); MEAN CELL VOLUME 88.2 fl (80-96); MEAN PLT VOLUME 8.4 fl (7.5-11.1); PLATELET COUNT 253 K/MM3 (134-434); RDW 16.7 % (11.9-15.9); WHITE BLOOD COUNT 16.4 K/mm3 (4.0-10.0)
[2017-05-17 04:30] LABS: INR 1.03 (0.82-1.09); PROTHROMBIN TIME (PATIENT) 11.3 SEC (9.98-11.88)
[2017-05-17 04:31] LABS: VENOUS PH 7.32 (7.32-7.42)
[2017-05-17 04:32] LABS: VENOUS BLOOD GAS HCO3 30.4 meq/L (19-25)
[2017-05-17 04:33] LABS: ACTIVATED PTT 31.9 SECONDS (26.9-34.4)
[2017-05-17 04:38] LABS: ALBUMIN 3.3 g/dl (3.4-5.0); ANION GAP 8 (8-16); BILIRUBIN,TOTAL 0.3 mg/dL (0.2-1.0); CALCIUM 8.9 mg/dL (8.5-10.1); CO2 31 mmol/L (21-32); CREATININE 1.8 mg/dL (0.7-1.3); GLUCOSE,RANDOM 249 mg/dL (74-106); SGOT/AST 13 U/L (15-37); SGPT/ALT 24 U/L (12-78)
[2017-05-17 04:41] LABS: ALK PHOS 155 U/L (45-117); TROPONIN I < 0.02 ng/ml (0.00-0.05)
[2017-05-17] MEDS ORDERED: LEVOFLOXACIN 750 MG IVPB 150 ML IVPB ONE ×2 (04:57→04:59)
[2017-05-17] MEDS ORDERED: POLYETHYLENE GLYCOL 3350 119 GM BTL PO PRN (06:28)
[2017-05-17] MEDS ORDERED: ZOLPIDEM TARTRATE 5 MG TABLET PO PRN (06:28)
[2017-05-17] MEDS ORDERED: morphine SO4 SUSTAINED ACTING 30 MG TABLET.SA PO SCH (06:30)
[2017-05-17] MEDS ORDERED: VANCOMYCIN 1,000 MG in DEXTROSE 5%-WATER - 250 ML IVPB ONE (06:31)
[2017-05-17] MEDS ORDERED: oxyCODONE HCL 5 MG TABLET PO PRN (06:40)
[2017-05-17] MEDS ORDERED: VANCOMYCIN 1 GRAM (PRE-DOCKED) 250 ML IVPB ONE (06:46)
[2017-05-17] MEDS ORDERED: morphine SO4 SUSTAINED ACTING 15 MG TABLET.SA ONE (06:46)
[2017-05-17 06:57] LABS: URINE APPEARANCE CLEAR; URINE BILIRUBIN NEGATIVE (NEGATIVE); URINE BLOOD NEGATIVE (NEGATIVE); URINE COLOR LTYELLOW; URINE GLUCOSE (UA) NEGATIVE (NEGATIVE); URINE KETONE NEGATIVE (NEGATIVE); URINE NITRITE NEGATIVE (NEGATIVE); URINE UROBILINOGEN NEGATIVE mg/dL (0.2-1.0)
[2017-05-17] MEDS ORDERED: INSULIN SLIDING SCALE (NOVOLOG) 1 VIAL SQ SCH (07:00)
[2017-05-17 07:14] LABS: URINE LEUK ESTERASE TRACE (NEGATIVE); URINE PROTEIN 2+ (NEGATIVE)
[2017-05-17 07:23] LABS: URINE MUCUS RARE; URINE RBC 1 /hpf (0-3); URINE WBC 4 /hpf (3-5)
[2017-05-17] MEDS ORDERED: PIPERACILLIN/TAZOB 2.25 GM 2.25 GM in DEXTROSE 5%-WATER - 50 ML IVPB ONE (10:00)
[2017-05-17] MEDS ORDERED: PATIENT'S OWN MEDICATION (NON-FORMULARY) (Lansoprazole [Prevacid] 30 MG) PO SCH (10:00)
[2017-05-17] MEDS ORDERED: hydrALAZINE HCL 10 MG TABLET PO SCH (10:00)
[2017-05-17] MEDS ORDERED: PIPERACILLIN/TAZOB 2.25 GM 2.25 GM in DEXTROSE 5%-WATER - 50 ML IVPB SCH (10:00)
[2017-05-17] MEDS ORDERED: FUROSEMIDE 40 MG/4 ML INJECTABLE VIAL IVPUSH SCH (10:00)
[2017-05-17] MEDS: HEPARIN NA (PORCINE) 5,000 UNITS/ML 1ML VIAL SQ SCH ×2 (10:05→23:04)
[2017-05-17] MEDS: ASPIRIN COATED 81 MG TABLET.EC PO SCH (10:06)
[2017-05-17] MEDS: MAGNESIUM OXIDE 400 MG TABLET (FP) PO SCH ×2 (10:06→23:04)
[2017-05-17] MEDS: DOCUSATE SODIUM 100 MG CAPSULE (FP) PO SCH ×2 (10:06→23:03)
[2017-05-17] MEDS: CLOPIDOGREL BISULFATE 75 MG TABLET (FP) PO SCH (10:06)
[2017-05-17] MEDS: METOPROLOL TARTRATE 50 MG TABLET (FP) PO SCH (10:06)
[2017-05-17] MEDS: PREGABALIN 25 MG CAPSULE PO SCH ×2 (10:06→23:04)
[2017-05-17] MEDS: INSULIN DETEMIR 100 UNITS/ML MDV SQ SCH ×2 (10:07→17:34)
[2017-05-17] MEDS: ALBUTEROL SO4 0.083% IH SOL 2.5 MG/3 ML VIAL.NEB. NEB SCH ×2 (11:26→18:30)
[2017-05-17] MEDS: INSULIN SLIDING SCALE (NOVOLOG) 1 VIAL SQ SCH ×3 (11:33→23:05)
[2017-05-17] MEDS: ACETAMINOPHEN 325 MG TABLET (FP) PO PRN (13:31)
[2017-05-17] MEDS: morphine SO4 SUSTAINED ACTING 30 MG TABLET.SA PO SCH ×2 (13:32→23:03)
--- NOTE | 2017-05-17 13:36 | CON.CARD ---
Cardiology Consult (text) - Consultation Consultation Note: - History of Present Illness Chief Complaint: Fever with cough History of Present Illness: 67 yo male DM, CKD, CVA 10/2104 without residual deficits. Known CAD with reported "5 prior stents and MIs" last PCI in 2011 Ischemic CMY with systolic LV dysfunction. PAD bilateral LE with non-healing ulcer and COPD with tobacco history Here now after several days of fever and productive cough at home. No cp, sob, palps, dizzy, loc, pnd, orthopnea, le edema. Being treated for pna. 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 No: AFIB Pulmonary: Yes: COPD Gastrointestinal: Yes: Other (Colitis) Renal/: Yes: Renal Inusuff, Other (hyperkalemia) Psych: Yes: Addictions Musculoskeletal: Yes: Other (Lumbar radiculopathy) Endocrine: Yes: Diabetes Mellitus - Past Surgical History Past Surgical History: Yes: Stent - Alcohol/Substance Use Hx Alcohol Use: No History of Substance Use: reports: None - Smoking History Smoking history: ex tob - Social History Usual Living Arrangement: With Spouse ADL: Independent History of Recent Travel: No Home Medications - Allergies Allergies/Adverse Reactions: Allergies Allergy/AdvReac Type Severity Reaction Status Date / Time pantoprazole sodium Allergy Verified 05/17/17 05:42 [From Protonix] - Home Medications Home Medications Medication Instructions Recorded Clopidogrel Bisulfate [Plavix -] 75 mg PO DAILY #20 tablet 02/19/14 Aspirin [Ecotrin] 81 mg PO DAILY 04/29/15 Temazepam [Restoril -] 30 mg PO BID 08/24/15 Docusate Sodium [Colace -] 100 mg PO BID capsule 08/26/15 Hydralazine HCl [Apresoline -] 10 mg PO BID #180 tablet 08/14/16 Polyethylene Glycol 3350 [Miralax 17 gm PO BID PRN #0 bottle 08/14/16 119 gm Btl -] Magnesium Oxide [Mag-Ox -] 400 mg PO BID #60 tablet 01/27/17 Furosemide [Lasix -] 80 mg PO DAILY 02/21/17 Lansoprazole [Prevacid] 30 mg PO DAILY 03/13/17 Metoprolol Tartrate 50 mg PO DAILY 03/13/17 Pregabalin [Lyrica] 50 mg PO BID 03/13/17 Zolpidem Tartrate [Ambien] 10 mg PO HS PRN 03/13/17 Morphine *Sr* [MS Contin -] 60 mg PO Q8H tab.sa MDD 180mg 03/20/17 Collagenase Clostridium Hist. 1 applic TP DAILY #90 oint...g. 04/04/17 [Santyl] Insulin (Levemir) [Levemir Vial] 50 units SQ BID 04/12/17 Levofloxacin [Levaquin] 1 tab PO DAILY 05/16/17 Family Disease History - Family Disease History Family Disease History: Diabetes: Grandparent, Sister (COPD), CA: Father, Respiratory: Sister, Other: Mother (CVA) Review of Systems - Review of Systems per hpi; no nvd, salas, vision changes, gib, hematuria, dysuria, muscle pain Physical Exam Vital Signs: Vital Signs Period Temp Pulse Resp BP Sys/Chandra Pulse Ox Last 24 Hr 100.4 F-102.6 F 80-120 16-22 115-142/54-103 95-97 nad no jvd rrr s1s2 no mrg cta bl nl eff aaox3 no le e/c/c abd nt nd pos bs no jaundice diaphoresis pos dp pt no carotid bruits Laboratory Last Values WBC 16.4 K/mm3 (4.0-10.0) H 05/17/17 04:00 RBC 4.05 M/mm3 (4.00-5.60) 05/17/17 04:00 Hgb 11.1 GM/dL (11.7-16.9) L 05/17/17 04:00 Hct 35.7 % (35.4-49) 05/17/17 04:00 MCV 88.2 fl (80-96) 05/17/17 04:00 MCH 27.4 pg (25.7-33.7) 05/17/17 04:00 MCHC 31.0 g/dl (32.0-35.9) L 05/17/17 04:00 RDW 16.7 % (11.9-15.9) H 05/17/17 04:00 Plt Count 253 K/MM3 (134-434) D 05/17/17 04:00 MPV 8.4 fl (7.5-11.1) 05/17/17 04:00 Neutrophils % 79.0 % (42.8-82.8) D 05/17/17 04:00 Lymphocytes % 11.0 % (8-40) D 05/17/17 04:00 Monocytes % 8.0 % (3.8-10.2) 05/17/17 04:00 Eosinophils % 2.0 % (0-4.5) 05/17/17 04:00 INR 1.03 (0.82-1.09) 05/17/17 04:00 PTT (Actin FS) 31.9 SECONDS (26.9-34.4) 05/17/17 04:00 VBG pH 7.32 (7.32-7.42) 05/17/17 04:19 POC VBG pCO2 61.2 mmHg (38-52) H* 05/17/17 04:19 POC VBG pO2 29.1 mmHg (28-48) 05/17/17 04:19 Mixed VBG HCO3 30.4 meq/L (19-25) H 05/17/17 04:19 Sodium 135 mmol/L (136-145) L 05/17/17 04:00 Potassium 4.3 mmol/L (3.5-5.1) 05/17/17 04:00 Chloride 96 mmol/L (98-107) L 05/17/17 04:00 Carbon Dioxide 31 mmol/L (21-32) 05/17/17 04:00 Anion Gap 8 (8-16) 05/17/17 04:00 BUN 50 mg/dL (7-18) H D 05/17/17 04:00 Creatinine 1.8 mg/dL (0.7-1.3) H D 05/17/17 04:00 Creat Clearance w eGFR 37.60 (>60) 05/17/17 04:00 POC Glucometer 251 UNITS (()) 05/17/17 11:30 Random Glucose 249 mg/dL (74-106) H D 05/17/17 04:00 Lactic Acid 1.2 mmol/L (0.4-2.0) 05/17/17 06:20 Calcium 8.9 mg/dL (8.5-10.1) 05/17/17 04:00 Total Bilirubin 0.3 mg/dL (0.2-1.0) 05/17/17 04:00 AST 13 U/L (15-37) L D 05/17/17 04:00 ALT 24 U/L (12-78) D 05/17/17 04:00 Alkaline Phosphatase 155 U/L (45-117) H D 05/17/17 04:00 Creatine Kinase 23 IU/L (39-308) L 05/17/17 04:00 Troponin I < 0.02 ng/ml (0.00-0.05) D 05/17/17 04:00 B-Natriuretic Peptide 5638.51 pg/ml (5-125) H 05/17/17 08:00 Total Protein 7.0 g/dl (6.4-8.2) D 05/17/17 04:00 Albumin 3.3 g/dl (3.4-5.0) L D 05/17/17 04:00 Urine Color Ltyellow 05/17/17 06:20 Urine Appearance Clear 05/17/17 06:20 Urine pH 5.0 (5.0-8.0) 05/17/17 06:20 Ur Specific [place] 1.010 (1.005-1.025) 05/17/17 06:20 Urine Protein 2+ (NEGATIVE) H 05/17/17 06:20 Urine Glucose (UA) Negative (NEGATIVE) 05/17/17 06:20 Urine Ketones Negative (NEGATIVE) 05/17/17 06:20 Urine Blood Negative (NEGATIVE) 05/17/17 06:20 Urine Nitrite Negative (NEGATIVE) 05/17/17 06:20 Urine Bilirubin Negative (NEGATIVE) 05/17/17 06:20 Urine Urobilinogen Negative mg/dL (0.2-1.0) 05/17/17 06:20 Ur Leukocyte Esterase Trace (NEGATIVE) H 05/17/17 06:20 Urine RBC 1 /hpf (0-3) 05/17/17 06:20 Urine WBC 4 /hpf (3-5) 05/17/17 06:20 Urine Mucus Rare 05/17/17 06:20 Blood Type AB POSITIVE 05/17/17 08:00 Antibody Screen Negative 05/17/17 08:00 Ecg 05/17/17: sr, rbbb, inf q's, no sig change prior echo 01/2017: mild global HK, lvef 45-50, nl rv, nl rvsp, mild lae, mild tr repeat Echo 01/17/17: --images reviewed by Dr. Mckeon: no vegetation seen; redundant, highly mobile anterior chorda to anterior MV leaflet--cannot definitively exclude vegetation attached to chord though not highly suspicious. no AV or TV vege seen. no MR/TR/AI. EF mod-severely decr'd, ? global (cannot accurately assess for RWMAs)--suspect EF is 35-40%. RV normal size, fxn not well visualized. Echo 12/2016: TDS; LVSF is "at least mildly reduced: RWM assessment tds; nl RV; nl LA; mild MR/TR; no veg seen Echo 04/2015: mod global HK; RV tds; trace AI Echo 01/2014: moderate, global LV hypokinesis; nl RV size with hypokinesis; no signif valve dysfxn cxr: chf a/p: 67 year old male with a history of dm, ckd (1.5-2), CVA 10/2014, CAD s/p STEMI and multiple pci's, ischemic CM with systolic chf, COPD, extensive smoking history (now quit 12/2016) here with cough, fever. pna: -cont abx per pmd CAD: -s/p PCI ([facility]) to 100% occl RPDA in 2004 ([facility]) with patent prior RCA stents at that time, EF 50% then; -s/p anterior STEMI 2011 with [place] [facility]BY x 2 to mid LAD then ([facility]); residual dz then included 80% prox D1 (large vessel), 95% mD1; 70%mRCA (pre and post prior stents); 40% RPDA; 60% pCFX; 40% mCFX; 70% dCFX; EF then 37% with AK of apex/AL lindsey and AK of IW; -stable, no angina -cont home statin, dapt, bb isch CMP/acute syst CHF exacerbation: -mild dec lvef on recent echo -vol status stable on lasix 80 qd as outpt -here with mild chf likely 2/2 pna, cont lasix 40 iv qd for now -cont toprol, hydralazine. not on gabriel 2/2 ckd. HTN: -bp controlled -cont current meds HPL: -cont home statin h/o CVA: -dx'd lacunar infarct 4/14 clinically then (slurred speech) -? acute CVA/TIA 11/13, seen by neuro then--ASA added to prior plavix, remains on DAPT -cont current cardiac meds, risk factor modification ckd: -cr near baseline
[2017-05-17 13:55] VITALS: BMI 30.7
--- NOTE | 2017-05-17 14:46 | EKG ---
Test Reason : Blood Pressure : / mmHG Vent. Rate : 119 BPM Atrial Rate : 119 BPM P-R Int : 000 ms QRS Dur : 122 ms QT Int : 302 ms P-R-T Axes : 051 -65 064 degrees QTc Int : 424 ms POOR DATA QUALITY, INTERPRETATION MAY BE ADVERSELY AFFECTED SINUS TACHYCARDIA WITH 1ST DEGREE A-V BLOCK WITH FUSION COMPLEXES RIGHT BUNDLE BRANCH BLOCK LEFT ANTERIOR FASCICULAR BLOCK BIFASCICULAR BLOCK INFERIOR INFARCT (CITED ON OR BEFORE 16-SEP-2001) ABNORMAL ECG WHEN COMPARED WITH ECG OF 13-MAR-2017 11:08, FUSION COMPLEXES ARE NOW PRESENT PREMATURE VENTRICULAR COMPLEXES ARE NO LONGER PRESENT (RBBB AND LEFT ANTERIOR FASCICULAR BLOCK) IS NOW PRESENT Confirmed by DELILAH BRADLEY, EDENILSON ([id number]) on 05/17/2017 2:46:18 PM Referred By: Confirmed By:EDENILSON MAZARIEGOS MD
--- NOTE | 2017-05-17 14:53 | HP ---
Admitting History and Physical - Primary Care Physician PCP: Vin Isbell - Admission Chief Complaint: I'm shaking History of Present Illness: Mr Scott is a 67 year old male who comes in with fevers and rigors for the past 3 days. His last procedure was last month and he frequently comes to the hospital for hyperbaric oxygen treatment for foot ulcers. He says 3 days ago he developed fevers and chills. He had night sweats associated with it. He took his temperature at home but does not know what it was. He says he had a non- productive cough associated with it. He became so tremulous that he presented for further evaluation. He denies lightheadedness, passing out, chest pain, shortness of breath, abdominal pain, decrease in appetite, nausea, vomiting, diarrhea, constipation, difficulty or pain on urination, or swelling. He says his chronic pain is controlled. 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 No: AFIB Pulmonary: Yes: COPD Gastrointestinal: Yes: Other (Colitis) Renal/: Yes: Renal Inusuff, Other (hyperkalemia) Psych: Yes: Addictions Musculoskeletal: Yes: Other (Lumbar radiculopathy) Endocrine: Yes: Diabetes Mellitus - Past Surgical History Past Surgical History: Yes: Stent - Smoking History Smoking history: Former smoker Have you smoked in the past 12 months: No Aproximately how many cigarettes per day: 30 If you are a former smoker, when did you quit?: 2017 - Alcohol/Substance Use Hx Alcohol Use: No History of Substance Use: reports: None - Social History Usual Living Arrangement: Yes: With Spouse ADL: Independent History of Recent Travel: No Home Medications - Allergies Allergies/Adverse Reactions: Allergies Allergy/AdvReac Type Severity Reaction Status Date / Time pantoprazole sodium Allergy Verified 05/17/17 05:42 [From Protonix] - Home Medications Home Medications: Ambulatory Orders Clopidogrel Bisulfate [Plavix -] 75 mg PO DAILY #20 tablet 02/19/14 Aspirin [Ecotrin] 81 mg PO DAILY 04/29/15 Temazepam [Restoril -] 30 mg PO BID 08/24/15 Docusate Sodium [Colace -] 100 mg PO BID capsule 10/28/15 Hydralazine HCl [Apresoline -] 10 mg PO BID #180 tablet 08/14/16 Polyethylene Glycol 3350 [Miralax 119 gm Btl -] 17 gm PO BID PRN #0 bottle 08/14 Magnesium Oxide [Mag-Ox -] 400 mg PO BID #60 tablet 01/27/17 Furosemide [Lasix -] 80 mg PO DAILY 02/21/17 Lansoprazole [Prevacid] 30 mg PO DAILY 03/13/17 Metoprolol Tartrate 50 mg PO DAILY 03/13/17 Pregabalin [Lyrica] 50 mg PO BID 03/13/17 Zolpidem Tartrate [Ambien] 10 mg PO HS PRN 03/13/17 Morphine *Sr* [MS Contin -] 60 mg PO Q8H tab.sa MDD 180mg 03/20/17 Collagenase Clostridium Hist. [Santyl] 1 applic TP DAILY #90 oint...g. 04/04/17 Insulin (Levemir) [Levemir Vial] 50 units SQ BID 04/12/17 Levofloxacin [Levaquin] 1 tab PO DAILY 05/16/17 Family Disease History - Family Disease History Family Disease History: Diabetes: Grandparent, Sister (COPD), CA: Father, Respiratory: Sister, Other: Mother (CVA) Review of Systems Findings/Remarks: full review of systems obtained, as per HPI and otherwise negative Physical Examination Vital Signs: Vital Signs Temperature 100.4 F H 05/17/17 05:38 Pulse Rate 80 05/17/17 07:05 Respiratory Rate 20 05/17/17 07:05 Blood Pressure 115/54 05/17/17 07:05 O2 Sat by Pulse Oximetry (%) 95 05/17/17 10:00 Constitutional: Yes: Obese, Other (rigors) Eyes: Yes: Conjunctiva Clear, EOM Intact, PERRL HENT: Yes: Atraumatic, Normocephalic Cardiovascular: Yes: Regular Rate and Rhythm. No: Gallop, Murmur, Rub Respiratory: Yes: Regular, Rhonchi. No: Rales, Wheezes Gastrointestinal: Yes: Normal Bowel Sounds, Soft. No: Distention, Tenderness Extremities: Yes: Other (well healing ulcer) Edema: No Labs: Laboratory Results - last 24 hr 05/17/17 05/17/17 05/17/17 04:00 04:00 04:00 WBC 16.4 H RBC 4.05 Hgb 11.1 L Hct 35.7 MCV 88.2 MCH 27.4 MCHC 31.0 L RDW 16.7 H Plt Count 253 D MPV 8.4 Neutrophils % 79.0 D Lymphocytes % 11.0 D Monocytes % 8.0 Eosinophils % 2.0 INR 1.03 PTT (Actin FS) 31.9 VBG pH POC VBG pCO2 POC VBG pO2 Mixed VBG HCO3 Sodium 135 L Potassium 4.3 Chloride 96 L Carbon Dioxide 31 Anion Gap 8 BUN 50 H D Creatinine 1.8 H D Creat Clearance w eGFR 37.60 POC Glucometer Random Glucose 249 H D Lactic Acid Calcium 8.9 Total Bilirubin 0.3 AST 13 L D ALT 24 D Alkaline Phosphatase 155 H D Creatine Kinase 23 L Troponin I < 0.02 D B-Natriuretic Peptide Total Protein 7.0 D Albumin 3.3 L D Urine Color Urine Appearance Urine pH Ur Specific [place] Urine Protein Urine Glucose (UA) Urine Ketones Urine Blood Urine Nitrite Urine Bilirubin Urine Urobilinogen Ur Leukocyte Esterase Urine RBC Urine WBC Urine Mucus Blood Type Antibody Screen 05/17/17 05/17/17 05/17/17 04:00 04:19 06:20 WBC RBC Hgb Hct MCV MCH MCHC RDW Plt Count MPV Neutrophils % Lymphocytes % Monocytes % Eosinophils % INR PTT (Actin FS) VBG pH 7.32 POC VBG pCO2 61.2 H* POC VBG pO2 29.1 Mixed VBG HCO3 30.4 H Sodium Potassium Chloride Carbon Dioxide Anion Gap BUN Creatinine Creat Clearance w eGFR POC Glucometer Random Glucose Lactic Acid 2.0 Calcium Total Bilirubin AST ALT Alkaline Phosphatase Creatine Kinase Troponin I B-Natriuretic Peptide Total Protein Albumin Urine Color Ltyellow Urine Appearance Clear Urine pH 5.0 Ur Specific [place] 1.010 Urine Protein 2+ H Urine Glucose (UA) Negative Urine Ketones Negative Urine Blood Negative Urine Nitrite Negative Urine Bilirubin Negative Urine Urobilinogen Negative Ur Leukocyte Esterase Trace H Urine RBC 1 Urine WBC 4 Urine Mucus Rare Blood Type Antibody Screen 05/17/17 05/17/17 05/17/17 06:20 06:55 08:00 WBC RBC Hgb Hct MCV MCH MCHC RDW Plt Count MPV Neutrophils % Lymphocytes % Monocytes % Eosinophils % INR PTT (Actin FS) VBG pH POC VBG pCO2 POC VBG pO2 Mixed VBG HCO3 Sodium Potassium Chloride Carbon Dioxide Anion Gap BUN Creatinine Creat Clearance w eGFR POC Glucometer [phone] Random Glucose Lactic Acid 1.2 Calcium Total Bilirubin AST ALT Alkaline Phosphatase Creatine Kinase Troponin I B-Natriuretic Peptide Total Protein Albumin Urine Color Urine Appearance Urine pH Ur Specific [place] Urine Protein Urine Glucose (UA) Urine Ketones Urine Blood Urine Nitrite Urine Bilirubin Urine Urobilinogen Ur Leukocyte Esterase Urine RBC Urine WBC Urine Mucus Blood Type AB POSITIVE Antibody Screen Negative 05/17/17 05/17/17 08:00 11:30 WBC RBC Hgb Hct MCV MCH MCHC RDW Plt Count MPV Neutrophils % Lymphocytes % Monocytes % Eosinophils % INR PTT (Actin FS) VBG pH POC VBG pCO2 POC VBG pO2 Mixed VBG HCO3 Sodium Potassium Chloride Carbon Dioxide Anion Gap BUN Creatinine Creat Clearance w eGFR POC Glucometer 251 Random Glucose Lactic Acid Calcium Total Bilirubin AST ALT Alkaline Phosphatase Creatine Kinase Troponin I B-Natriuretic Peptide 5638.51 H Total Protein Albumin Urine Color Urine Appearance Urine pH Ur Specific [place] Urine Protein Urine Glucose (UA) Urine Ketones Urine Blood Urine Nitrite Urine Bilirubin Urine Urobilinogen Ur Leukocyte Esterase Urine RBC Urine WBC Urine Mucus Blood Type Antibody Screen Imaging - Results Chest X-ray: Report Reviewed, Image Reviewed Problem List - Problems (1) Pneumonia Assessment/Plan: -suspected pneumonia -patient presents for hyperbaric oxygen treatment, so possible sick contact -given zosyn in the ED -ID consulted, defer further antibiotic treatment -check urine for antigen Code(s): J18.9 - PNEUMONIA, UNSPECIFIED ORGANISM Qualifiers: Pneumonia type: due to unspecified organism Laterality: right Lung location: upper lobe of lung Qualified Code(s): J18.1 - Lobar pneumonia, unspecified organism (2) Sepsis Assessment/Plan: -as evidenced by leukocytosis, fevers, rigors -will hold lasix -gentle hydration -antibiotics per ID Code(s): A41.9 - SEPSIS, UNSPECIFIED ORGANISM (3) Renal failure (ARF), acute on chronic Assessment/Plan: -hold lasix currently -gentle hydration Code(s): N17.9 - ACUTE KIDNEY FAILURE, UNSPECIFIED N18.9 - CHRONIC KIDNEY DISEASE, UNSPECIFIED (4) CAD (coronary artery disease) Assessment/Plan: -quiescent, without chest pain -continue home regimen Code(s): I25.10 - ATHSCL HEART DISEASE OF [place] CORONARY ARTERY W/O ANG PCTRS Qualifiers: (5) COPD (chronic obstructive pulmonary disease) Assessment/Plan: -not in exacerbation -not short of breath -continue home regimen Code(s): J44.9 - CHRONIC OBSTRUCTIVE PULMONARY DISEASE, UNSPECIFIED (6) Chronic pain Assessment/Plan: -controlled -continue ms contin with oxycodone prn Code(s): G89.29 - OTHER CHRONIC PAIN (7) Congestive heart failure (CHF) Assessment/Plan: -holding lasix currently secondary to sepsis -gentle hydration -monitor for fluid overload Code(s): I50.9 - HEART FAILURE, UNSPECIFIED Qualifiers: Congestive heart failure type: systolic Congestive heart failure chronicity: chronic Qualified Code(s): I50.22 - Chronic systolic ( congestive) heart failure (8) Diabetes mellitus Assessment/Plan: -continue levemir -diabetic diet -SSI Code(s): E11.9 - TYPE 2 DIABETES MELLITUS WITHOUT COMPLICATIONS Qualifiers: Diabetes mellitus type: type 2 Diabetes mellitus complication status: with circulatory complication Diabetes mellitus complication detail: with peripheral angiopathy with gangrene Diabetes mellitus ad terminal makeup operator insulin use : with shelter use Qualified Code(s): E11.52 - Type 2 diabetes mellitus with diabetic peripheral angiopathy with gangrene; Z79.4 - terminal worker ( current) use of insulin (9) Diabetic foot ulcer Assessment/Plan: -healing -monitor Code(s): E11.621 - TYPE 2 DIABETES MELLITUS WITH FOOT ULCER L97.509 - NON-PRESSURE CHRONIC ULCER OTH PRT UNSP FOOT W UNSP SEVERITY (10) Hypertension Assessment/Plan: -continue lopressor and hydralazine Code(s): I10 - ESSENTIAL (PRIMARY) HYPERTENSION
[2017-05-17] MEDS ORDERED: SODIUM CHLORIDE 1,000 ML IV SCH (15:00)
--- NOTE | 2017-05-17 16:01 | CONSULT ---
Consult Consult Specialty:: infectious diseases Referred by:: dr wisdom Reason for Consultation:: fever - History of Present Illness Chief Complaint: weakness fever shaking History of Present Illness: 67 year old male admitted with fevers and rigors for the past 3 days. According to the patient he has not been feeling well for a week now and since last 3 days he developed fevers and chills with associated night sweats. 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 No: AFIB Pulmonary: Yes: COPD Gastrointestinal: Yes: Other (Colitis) Renal/: Yes: Renal Inusuff, Other (hyperkalemia) Psych: Yes: Addictions Musculoskeletal: Yes: Other (Lumbar radiculopathy) Endocrine: Yes: Diabetes Mellitus - Past Surgical History Past Surgical History: Yes: Stent - Alcohol/Substance Use Hx Alcohol Use: No History of Substance Use: reports: None - Smoking History Smoking history: Former smoker Have you smoked in the past 12 months: No Aproximately how many cigarettes per day: 30 If you are a former smoker, when did you quit?: 2017 - Social History Usual Living Arrangement: With Spouse ADL: Independent History of Recent Travel: No Home Medications - Allergies Allergies/Adverse Reactions: Allergies Allergy/AdvReac Type Severity Reaction Status Date / Time pantoprazole sodium Allergy Verified 05/17/17 05:42 [From Protonix] - Home Medications Home Medications: Ambulatory Orders Clopidogrel Bisulfate [Plavix -] 75 mg PO DAILY #20 tablet 02/19/14 Aspirin [Ecotrin] 81 mg PO DAILY 04/29/15 Temazepam [Restoril -] 30 mg PO BID 08/24/15 Docusate Sodium [Colace -] 100 mg PO BID capsule 08/26/15 Hydralazine HCl [Apresoline -] 10 mg PO BID #180 tablet 08/14/16 Polyethylene Glycol 3350 [Miralax 119 gm Btl -] 17 gm PO BID PRN #0 bottle 08/14 Magnesium Oxide [Mag-Ox -] 400 mg PO BID #60 tablet 01/27/17 Furosemide [Lasix -] 80 mg PO DAILY 02/21/17 Lansoprazole [Prevacid] 30 mg PO DAILY 03/13/17 Metoprolol Tartrate 50 mg PO DAILY 03/13/17 Pregabalin [Lyrica] 50 mg PO BID 03/13/17 Zolpidem Tartrate [Ambien] 10 mg PO HS PRN 03/13/17 Morphine *Sr* [MS Contin -] 60 mg PO Q8H tab.sa MDD 180mg 03/20/17 Collagenase Clostridium Hist. [Santyl] 1 applic TP DAILY #90 oint...g. 04/04/17 Insulin (Levemir) [Levemir Vial] 50 units SQ BID 04/12/17 Levofloxacin [Levaquin] 1 tab PO DAILY 05/16/17 Family Disease History - Family Disease History Family Disease History: Diabetes: Grandparent, Sister (COPD), [place]: Father, Respiratory: Sister, Other: Mother (CVA) Review of Systems - Review of Systems Constitutional: reports: Chills, Fever Eyes: reports: No Symptoms HENT: reports: No Symptoms Neck: reports: No Symptoms Cardiovascular: reports: No Symptoms Respiratory: reports: Cough Gastrointestinal: reports: No Symptoms Musculoskeletal: reports: No Symptoms Integumentary: reports: Other Neurological: reports: Other (tremulsoness) Endocrine: reports: No Symptoms Hematology/Lymphatic: reports: No Symptoms Psychiatric: reports: No Symptoms Physical Exam Vital Signs: Vital Signs Temperature 102.4 F H 05/17/17 14:51 Pulse Rate 88 05/17/17 14:51 Respiratory Rate 20 05/17/17 14:51 Blood Pressure 157/88 05/17/17 14:51 O2 Sat by Pulse Oximetry (%) 95 05/17/17 10:00 Constitutional: Yes: Calm, Mild Distress Eyes: Yes: Conjunctiva Clear HENT: Yes: Atraumatic Neck: Yes: Supple, Trachea Midline Cardiovascular: Yes: S1, S2 Respiratory: Yes: Poor Air Entry, Rhonchi Gastrointestinal: Yes: Normal Bowel Sounds, Soft Musculoskeletal: Yes: Other Extremities: Yes: Other (healing wound) Wound/Incision: Yes: Other (clean healing) Neurological: Yes: Alert, Oriented Psychiatric: Yes: Alert, Oriented Imaging - Results Chest X-ray: Report Reviewed, Image Reviewed Assessment/Plan Problem List - Problems (1) Pneumonia Code(s): J18.9 - PNEUMONIA, UNSPECIFIED ORGANISM Qualifiers: Pneumonia type: due to unspecified organism Laterality: right Lung location: upper lobe of lung Qualified Code(s): J18.1 - Lobar pneumonia, unspecified organism (2) Sepsis Code(s): A41.9 - SEPSIS, UNSPECIFIED ORGANISM (3) Renal failure (ARF), acute on chronic Code(s): N17.9 - ACUTE KIDNEY FAILURE, UNSPECIFIED N18.9 - CHRONIC KIDNEY DISEASE, UNSPECIFIED (4) CAD (coronary artery disease) Code(s): I25.10 - ATHSCL HEART DISEASE OF [place] CORONARY ARTERY W/O ANG PCTRS Qualifiers: (5) COPD (chronic obstructive pulmonary disease) Code(s): J44.9 - CHRONIC OBSTRUCTIVE PULMONARY DISEASE, UNSPECIFIED (6) Chronic pain Code(s): G89.29 - OTHER CHRONIC PAIN (7) Congestive heart failure (CHF) Code(s): I50.9 - HEART FAILURE, UNSPECIFIED Qualifiers: Congestive heart failure type: systolic Congestive heart failure chronicity: chronic Qualified Code(s): I50.22 - Chronic systolic ( congestive) heart failure (8) Diabetes mellitus Code(s): E11.9 - TYPE 2 DIABETES MELLITUS WITHOUT COMPLICATIONS Qualifiers: Diabetes mellitus type: type 2 Diabetes mellitus complication status: with circulatory complication Diabetes mellitus complication detail: with peripheral angiopathy with gangrene Diabetes mellitus fdc insulin use : with terminal system operator use Qualified Code(s): E11.52 - Type 2 diabetes mellitus with diabetic peripheral angiopathy with gangrene; Z79.4 - residential ( current) use of insulin (9) Diabetic foot ulcer Code(s): E11.621 - TYPE 2 DIABETES MELLITUS WITH FOOT ULCER L97.509 - NON-PRESSURE CHRONIC ULCER OTH PRT UNSP FOOT W UNSP SEVERITY (10) Hypertension Code(s): I10 - ESSENTIAL (PRIMARY) HYPERTENSION patient in sepsis the exact cause fever unknown yet plan will await for cx reports will start patient on abx' close monitoring follow wbc and fever re[eat blood cx if patient has fever rest as per primary
[2017-05-17] MEDS: ACLIDINIUM BROMIDE 400 MCG/INH AERO.POWD IH SCH ×2 (17:24→23:06)
[2017-05-17] MEDS: BUDESONIDE/FORMETEROL FUMARATE 160/4.5 mcg INHALER IH SCH ×2 (17:24→23:06)
[2017-05-17] MEDS: COLLAGENASE CLOSTRIDIUM HIST. 30 GRAMS TUBE TP SCH (17:30)
[2017-05-17] MEDS ORDERED: PIPERACILLIN/TAZOBACTAM 3.375 GM VIAL IVPB ONE (20:09)
[2017-05-17] MEDS ORDERED: DEXTROSE 5%-WATER - 50 ML IVPB ONE (20:10)
[2017-05-17] MEDS: PIPERACILLIN/TAZOB 3.375 GM 3.375 GM in DEXTROSE 5%-WATER - 50 ML IVPB SCH (20:12)
[2017-05-17] MEDS: ONDANSETRON 4 MG/2 ML VIAL IVPB PRN (21:22)
[2017-05-17] MEDS: hydrALAZINE HCL 10 MG TABLET PO SCH (23:03)
[2017-05-17] MEDS: TEMAZEPAM 15 MG CAPSULE PO SCH (23:04)
[2017-05-18] MEDS: ALBUTEROL SO4 0.083% IH SOL 2.5 MG/3 ML VIAL.NEB. NEB SCH ×5 (00:14→23:59)
[2017-05-18] MEDS: ACETAMINOPHEN 325 MG TABLET (FP) PO PRN ×4 (01:02→19:54)
[2017-05-18] MEDS: PIPERACILLIN/TAZOB 3.375 GM 3.375 GM in DEXTROSE 5%-WATER - 50 ML IVPB SCH ×3 (02:50→18:11)
[2017-05-18] MEDS: INSULIN SLIDING SCALE (NOVOLOG) 1 VIAL SQ SCH ×4 (06:12→22:24)
[2017-05-18] MEDS: morphine SO4 SUSTAINED ACTING 30 MG TABLET.SA PO SCH ×3 (06:13→22:21)
[2017-05-18] MEDS ORDERED: VANCOMYCIN 1 GRAM (PRE-DOCKED) 250 ML IVPB ONE (06:15)
[2017-05-18] MEDS: INSULIN DETEMIR 100 UNITS/ML MDV SQ SCH ×3 (06:37→18:51)
[2017-05-18 07:40] LABS: BASOPHIL 0.4 % (0-2.0); MCHC 31.7 g/dl (32.0-35.9); MEAN CELL VOLUME 88.2 fl (80-96); MEAN PLT VOLUME 8.8 fl (7.5-11.1); NEUTROPHILS 85.2 % (42.8-82.8); PLATELET COUNT 223 K/MM3 (134-434); RDW 16.8 % (11.9-15.9); WHITE BLOOD COUNT 16.4 K/mm3 (4.0-10.0)
[2017-05-18 07:45] LABS: ANION GAP 6 (8-16); CALCIUM 8.7 mg/dL (8.5-10.1); CO2 32 mmol/L (21-32); CREATININE 1.9 mg/dL (0.7-1.3); GLUCOSE,RANDOM 169 mg/dL (74-106); PHOSPHOROUS 3.1 mg/dL (2.5-4.9)
[2017-05-18] MEDS ORDERED: PIPERACILLIN/TAZOBACTAM 3.375 GM VIAL IVPB ONE ×3 (09:59→23:40)
[2017-05-18] MEDS ORDERED: DEXTROSE 5%-WATER - 50 ML IVPB ONE ×2 (10:00→23:40)
[2017-05-18] MEDS: HEPARIN NA (PORCINE) 5,000 UNITS/ML 1ML VIAL SQ SCH ×2 (10:12→22:21)
[2017-05-18] MEDS: CLOPIDOGREL BISULFATE 75 MG TABLET (FP) PO SCH (10:13)
[2017-05-18] MEDS: hydrALAZINE HCL 10 MG TABLET PO SCH ×2 (10:13→22:23)
[2017-05-18] MEDS: METOPROLOL TARTRATE 50 MG TABLET (FP) PO SCH (10:13)
[2017-05-18] MEDS: MAGNESIUM OXIDE 400 MG TABLET (FP) PO SCH ×2 (10:13→22:23)
[2017-05-18] MEDS: ASPIRIN COATED 81 MG TABLET.EC PO SCH (10:13)
[2017-05-18] MEDS: DOCUSATE SODIUM 100 MG CAPSULE (FP) PO SCH ×2 (10:13→22:23)
[2017-05-18] MEDS: PREGABALIN 25 MG CAPSULE PO SCH (10:14)
[2017-05-18] MEDS ORDERED: PT OWN MED DRAWER 7, Y5N ONE (10:21)
[2017-05-18] MEDS: BUDESONIDE/FORMETEROL FUMARATE 160/4.5 mcg INHALER IH SCH ×2 (10:24→22:25)
[2017-05-18] MEDS: ACLIDINIUM BROMIDE 400 MCG/INH AERO.POWD IH SCH ×2 (10:24→22:25)
[2017-05-18] MEDS: ONDANSETRON 4 MG/2 ML VIAL IVPB PRN (12:57)
--- NOTE | 2017-05-18 13:00 | PN ---
Progress Note, Physician Chief Complaint: Mr Scott complains of nausea and vomiting. No cp or sob. - Current Medication List Current Medications: Active Medications Acetaminophen (Tylenol -) 650 mg PO Q4H PRN PRN Reason: FEVER OR PAIN Last Admin: 05/18/17 06:14 Dose: 650 mg Aclidinium [place] (Tudorza -) 1 puff IH BID [facility] Last Admin: 05/18/17 10:24 Dose: 1 puff Albuterol Sulfate (Ventolin 0.083% Nebulizer Soln -) 1 amp NEB QIDR [facility] Last Admin: 05/18/17 11:15 Dose: 1 amp Aspirin (Ecotrin -) 81 mg PO DAILY [facility] Last Admin: 05/18/17 10:13 Dose: 81 mg Budesonide/Formoterol Fumarate (Symbicort 160/4.5mcg -) 2 puff IH BID [facility] Last Admin: 05/18/17 10:24 Dose: 2 puff Clopidogrel Bisulfate (Plavix -) 75 mg PO DAILY [facility] Last Admin: 05/18/17 10:13 Dose: 75 mg Collagenase (Santyl -) 1 applic TP DAILY [facility] Last Admin: 05/17/17 17:30 Dose: Not Given Docusate Sodium (Colace -) 100 mg PO BID [facility] Last Admin: 05/18/17 10:13 Dose: 100 mg Heparin Sodium (Porcine) (Heparin -) 5,000 unit SQ BID [facility] Last Admin: 05/18/17 10:12 Dose: 5,000 unit Hydralazine HCl (Apresoline -) 10 mg PO BID [facility] Last Admin: 05/18/17 10:13 Dose: 10 mg Sodium Chloride (Normal Saline -) 1,000 mls @ 50 mls/hr IV ASDIR [facility] Stop: 05/18/17 14:51 Last Admin: 05/17/17 17:29 Dose: 50 mls/hr Piperacillin Sod/Tazobactam (Sod 3.375 gm/ Dextrose) 50 mls @ 100 mls/hr IVPB Q8H-IV [facility] PRN Reason: Protocol Last Admin: 05/18/17 10:14 Dose: 100 mls/hr Insulin Aspart (Novolog Vial Sliding Scale -) 1 vial SQ ACHS [facility] PRN Reason: Protocol Last Admin: 05/18/17 12:51 Dose: Not Given Insulin Detemir (Levemir Vial) 50 units SQ BIDAC [facility] Last Admin: 05/18/17 06:37 Dose: 50 units Magnesium Oxide (Mag-Ox -) 400 mg PO BID [facility] Last Admin: 05/18/17 10:13 Dose: 400 mg Metoprolol Tartrate (Lopressor -) 50 mg PO DAILY [facility] Last Admin: 05/18/17 10:13 Dose: 50 mg Morphine Sulfate (Ms Contin -) 60 mg PO TID [facility] Last Admin: 05/18/17 06:13 Dose: 60 mg Non-Formulary Medication (Lansoprazole [Prevacid]) 30 mg PO DAILY [facility] Ondansetron HCl (Zofran Injection) 4 mg IVPB Q6H PRN PRN Reason: NAUSEA AND/OR VOMITING Last Admin: 05/18/17 12:57 Dose: 4 mg Oxycodone HCl (Roxicodone -) 10 mg PO Q4H PRN PRN Reason: PAIN Polyethylene Glycol (Miralax (For Daily Use) -) 17 gm PO BID PRN PRN Reason: CONSTIPATION Pregabalin (Lyrica -) 50 mg PO BID [facility] Last Admin: 05/18/17 10:14 Dose: 50 mg Temazepam (Restoril -) 30 mg PO HS [facility] Last Admin: 05/17/17 23:04 Dose: 30 mg Zolpidem Tartrate (Ambien -) 10 mg PO HS PRN PRN Reason: sleep - Objective Vital Signs: Vital Signs Temperature 99.7 F H 05/18/17 10:04 Pulse Rate 79 05/18/17 10:04 Respiratory Rate 20 05/18/17 10:04 Blood Pressure 167/78 05/18/17 10:04 O2 Sat by Pulse Oximetry (%) 97 05/17/17 21:00 Constitutional: Yes: Mild Distress, Obese Cardiovascular: Yes: Regular Rate and Rhythm. No: Gallop, Murmur, Rub Respiratory: Yes: Regular, CTA Bilaterally. No: Rales, Rhonchi, Wheezes Gastrointestinal: Yes: Soft, Hypoactive Bowel Sounds. No: Distention, Tenderness Extremities: Yes: WNL Edema: No Labs: CBC, BMP 05/18/17 06:00 05/18/17 06:00 INR, PTT INR 1.03 (0.82-1.09) 05/17/17 04:00 Problem List - Problems (1) Pneumonia Code(s): J18.9 - PNEUMONIA, UNSPECIFIED ORGANISM Qualifiers: Pneumonia type: due to unspecified organism Laterality: right Lung location: upper lobe of lung Qualified Code(s): J18.1 - Lobar pneumonia, unspecified organism (2) Sepsis Code(s): A41.9 - SEPSIS, UNSPECIFIED ORGANISM (3) Renal failure (ARF), acute on chronic Code(s): N17.9 - ACUTE KIDNEY FAILURE, UNSPECIFIED N18.9 - CHRONIC KIDNEY DISEASE, UNSPECIFIED (4) CAD (coronary artery disease) Code(s): I25.10 - ATHSCL HEART DISEASE OF [place] CORONARY ARTERY W/O ANG PCTRS Qualifiers: (5) COPD (chronic obstructive pulmonary disease) Code(s): J44.9 - CHRONIC OBSTRUCTIVE PULMONARY DISEASE, UNSPECIFIED (6) Chronic pain Code(s): G89.29 - OTHER CHRONIC PAIN (7) Congestive heart failure (CHF) Code(s): I50.9 - HEART FAILURE, UNSPECIFIED Qualifiers: Congestive heart failure type: systolic Congestive heart failure chronicity: chronic Qualified Code(s): I50.22 - Chronic systolic ( congestive) heart failure (8) Diabetes mellitus Code(s): E11.9 - TYPE 2 DIABETES MELLITUS WITHOUT COMPLICATIONS Qualifiers: Diabetes mellitus type: type 2 Diabetes mellitus complication status: with circulatory complication Diabetes mellitus complication detail: with peripheral angiopathy with gangrene Diabetes mellitus longterm insulin use : with longterm use Qualified Code(s): E11.52 - Type 2 diabetes mellitus with diabetic peripheral angiopathy with gangrene; Z79.4 - USP ( current) use of insulin (9) Diabetic foot ulcer Code(s): E11.621 - TYPE 2 DIABETES MELLITUS WITH FOOT ULCER L97.509 - NON-PRESSURE CHRONIC ULCER OTH PRT UNSP FOOT W UNSP SEVERITY (10) Hypertension Code(s): I10 - ESSENTIAL (PRIMARY) HYPERTENSION Assessment/Plan (1) Pneumonia Assessment/Plan: -appreciate ID assistance -on zosyn -however today with nausea/vomiting -will obtain abdominal x-ray -may need abdominal CT Code(s): J18.9 - PNEUMONIA, UNSPECIFIED ORGANISM Qualifiers: Pneumonia type: due to unspecified organism Laterality: right Lung location: upper lobe of lung Qualified Code(s): J18.1 - Lobar pneumonia, unspecified organism (2) Sepsis Assessment/Plan: -continue hydration and zosyn -monitor for improvement Code(s): A41.9 - SEPSIS, UNSPECIFIED ORGANISM (3) Renal failure (ARF), acute on chronic Assessment/Plan: -hold lasix currently -continue gentle hydration Code(s): N17.9 - ACUTE KIDNEY FAILURE, UNSPECIFIED N18.9 - CHRONIC KIDNEY DISEASE, UNSPECIFIED (4) CAD (coronary artery disease) Assessment/Plan: -quiescent, without chest pain -continue home regimen Code(s): I25.10 - ATHSCL HEART DISEASE OF [place] CORONARY ARTERY W/O ANG PCTRS Qualifiers: (5) COPD (chronic obstructive pulmonary disease) Assessment/Plan: -not in exacerbation -not short of breath -continue home regimen Code(s): J44.9 - CHRONIC OBSTRUCTIVE PULMONARY DISEASE, UNSPECIFIED (6) Chronic pain Assessment/Plan: -controlled -continue ms contin with oxycodone prn Code(s): G89.29 - OTHER CHRONIC PAIN (7) Congestive heart failure (CHF) Assessment/Plan: -holding lasix currently secondary to sepsis -gentle hydration -monitor for fluid overload Code(s): I50.9 - HEART FAILURE, UNSPECIFIED Qualifiers: Congestive heart failure type: systolic Congestive heart failure chronicity: chronic Qualified Code(s): I50.22 - Chronic systolic ( congestive) heart failure (8) Diabetes mellitus Assessment/Plan: -continue levemir -diabetic diet -SSI Code(s): E11.9 - TYPE 2 DIABETES MELLITUS WITHOUT COMPLICATIONS Qualifiers: Diabetes mellitus type: type 2 Diabetes mellitus complication status: with circulatory complication Diabetes mellitus complication detail: with peripheral angiopathy with gangrene Diabetes mellitus longterm insulin use : with longterm use Qualified Code(s): E11.52 - Type 2 diabetes mellitus with diabetic peripheral angiopathy with gangrene; Z79.4 - buttermaker ( current) use of insulin (9) Diabetic foot ulcer Assessment/Plan: -healing -monitor Code(s): E11.621 - TYPE 2 DIABETES MELLITUS WITH FOOT ULCER L97.509 - NON-PRESSURE CHRONIC ULCER OTH PRT UNSP FOOT W UNSP SEVERITY (10) Hypertension Assessment/Plan: -continue lopressor and hydralazine Code(s): I10 - ESSENTIAL (PRIMARY) HYPERTENSION
--- NOTE | 2017-05-18 13:51 | PN ---
Progress Note, Physician History of Present Illness: patient is c/o of abd discomfort still spiking fevers - Current Medication List Current Medications: Active Medications Acetaminophen (Tylenol -) 650 mg PO Q4H PRN PRN Reason: FEVER OR PAIN Last Admin: 05/18/17 06:14 Dose: 650 mg Aclidinium [place] (Tudorza -) 1 puff IH BID [facility] Last Admin: 05/18/17 10:24 Dose: 1 puff Albuterol Sulfate (Ventolin 0.083% Nebulizer Soln -) 1 amp NEB QIDR [facility] Last Admin: 05/18/17 11:15 Dose: 1 amp Aspirin (Ecotrin -) 81 mg PO DAILY [facility] Last Admin: 05/18/17 10:13 Dose: 81 mg Budesonide/Formoterol Fumarate (Symbicort 160/4.5mcg -) 2 puff IH BID [facility] Last Admin: 05/18/17 10:24 Dose: 2 puff Clopidogrel Bisulfate (Plavix -) 75 mg PO DAILY [facility] Last Admin: 05/18/17 10:13 Dose: 75 mg Collagenase (Santyl -) 1 applic TP DAILY [facility] Last Admin: 05/17/17 17:30 Dose: Not Given Docusate Sodium (Colace -) 100 mg PO BID [facility] Last Admin: 05/18/17 10:13 Dose: 100 mg Heparin Sodium (Porcine) (Heparin -) 5,000 unit SQ BID [facility] Last Admin: 05/18/17 10:12 Dose: 5,000 unit Hydralazine HCl (Apresoline -) 10 mg PO BID [facility] Last Admin: 05/18/17 10:13 Dose: 10 mg Sodium Chloride (Normal Saline -) 1,000 mls @ 50 mls/hr IV ASDIR [facility] Stop: 05/18/17 14:51 Last Admin: 05/17/17 17:29 Dose: 50 mls/hr Piperacillin Sod/Tazobactam (Sod 3.375 gm/ Dextrose) 50 mls @ 100 mls/hr IVPB Q8H-IV [facility] PRN Reason: Protocol Last Admin: 05/18/17 10:14 Dose: 100 mls/hr Insulin Aspart (Novolog Vial Sliding Scale -) 1 vial SQ ACHS [facility] PRN Reason: Protocol Last Admin: 05/18/17 12:51 Dose: Not Given Insulin Detemir (Levemir Vial) 50 units SQ BIDAC [facility] Last Admin: 05/18/17 06:37 Dose: 50 units Magnesium Oxide (Mag-Ox -) 400 mg PO BID [facility] Last Admin: 05/18/17 10:13 Dose: 400 mg Metoprolol Tartrate (Lopressor -) 50 mg PO DAILY [facility] Last Admin: 05/18/17 10:13 Dose: 50 mg Morphine Sulfate (Ms Contin -) 60 mg PO TID [facility] Last Admin: 05/18/17 06:13 Dose: 60 mg Non-Formulary Medication (Lansoprazole [Prevacid]) 30 mg PO DAILY [facility] Ondansetron HCl (Zofran Injection) 4 mg IVPB Q6H PRN PRN Reason: NAUSEA AND/OR VOMITING Last Admin: 05/18/17 12:57 Dose: 4 mg Oxycodone HCl (Roxicodone -) 10 mg PO Q4H PRN PRN Reason: PAIN Polyethylene Glycol (Miralax (For Daily Use) -) 17 gm PO BID PRN PRN Reason: CONSTIPATION Pregabalin (Lyrica -) 50 mg PO BID [facility] Last Admin: 05/18/17 10:14 Dose: 50 mg Temazepam (Restoril -) 30 mg PO HS [facility] Last Admin: 05/17/17 23:04 Dose: 30 mg Zolpidem Tartrate (Ambien -) 10 mg PO HS PRN PRN Reason: sleep - Objective Vital Signs: Vital Signs Temperature 99.7 F H 05/18/17 10:04 Pulse Rate 79 05/18/17 10:04 Respiratory Rate 20 05/18/17 10:04 Blood Pressure 167/78 05/18/17 10:04 O2 Sat by Pulse Oximetry (%) 97 05/17/17 21:00 Constitutional: Yes: No Distress, Calm Neck: Yes: Supple Cardiovascular: Yes: S1, S2 Respiratory: Yes: Poor Air Entry, Rhonchi Gastrointestinal: Yes: Normal Bowel Sounds, Soft Extremities: Yes: Other Neurological: Yes: Alert, Oriented Labs: CBC, BMP 05/18/17 06:00 05/18/17 06:00 INR, PTT INR 1.03 (0.82-1.09) 05/17/17 04:00 Assessment/Plan Problem List - Problems (1) Pneumonia Code(s): J18.9 - PNEUMONIA, UNSPECIFIED ORGANISM Qualifiers: Pneumonia type: due to unspecified organism Laterality: right Lung location: upper lobe of lung Qualified Code(s): J18.1 - Lobar pneumonia, unspecified organism (2) Sepsis Code(s): A41.9 - SEPSIS, UNSPECIFIED ORGANISM (3) Renal failure (ARF), acute on chronic Code(s): N17.9 - ACUTE KIDNEY FAILURE, UNSPECIFIED N18.9 - CHRONIC KIDNEY DISEASE, UNSPECIFIED (4) CAD (coronary artery disease) Code(s): I25.10 - ATHSCL HEART DISEASE OF [place] CORONARY ARTERY W/O ANG PCTRS Qualifiers: (5) COPD (chronic obstructive pulmonary disease) Code(s): J44.9 - CHRONIC OBSTRUCTIVE PULMONARY DISEASE, UNSPECIFIED (6) Chronic pain Code(s): G89.29 - OTHER CHRONIC PAIN (7) Congestive heart failure (CHF) Code(s): I50.9 - HEART FAILURE, UNSPECIFIED Qualifiers: Congestive heart failure type: systolic Congestive heart failure chronicity: chronic Qualified Code(s): I50.22 - Chronic systolic ( congestive) heart failure (8) Diabetes mellitus Code(s): E11.9 - TYPE 2 DIABETES MELLITUS WITHOUT COMPLICATIONS Qualifiers: Diabetes mellitus type: type 2 Diabetes mellitus complication status: with circulatory complication Diabetes mellitus complication detail: with peripheral angiopathy with gangrene Diabetes mellitus 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 inspector insulin use : with nursing home use Qualified Code(s): E11.52 - Type 2 diabetes mellitus with diabetic peripheral angiopathy with gangrene; 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
[2017-05-18] MEDS ORDERED: SODIUM CHLORIDE 1,000 ML IV SCH (16:45)
[2017-05-18] MEDS: COLLAGENASE CLOSTRIDIUM HIST. 30 GRAMS TUBE TP SCH (18:03)
[2017-05-18] MEDS ORDERED: CLINDAMYCIN HCL 150 MG CAPSULE (FP) PO SCH (20:30)
[2017-05-18] MEDS: CLINDAMYCIN 300 MG PREMIX IVPB 50 ML IVPB SCH (20:53)
[2017-05-18] MEDS: TEMAZEPAM 15 MG CAPSULE PO SCH (22:24)
[2017-05-19] MEDS: ACETAMINOPHEN 325 MG TABLET (FP) PO PRN ×2 (00:49→06:11)
[2017-05-19] MEDS: PIPERACILLIN/TAZOB 3.375 GM 3.375 GM in DEXTROSE 5%-WATER - 50 ML IVPB SCH (00:59)
[2017-05-19] MEDS: CLINDAMYCIN 300 MG PREMIX IVPB 50 ML IVPB SCH (02:07)
[2017-05-19] MEDS: INSULIN SLIDING SCALE (NOVOLOG) 1 VIAL SQ SCH ×4 (06:11→21:50)
[2017-05-19] MEDS: morphine SO4 SUSTAINED ACTING 30 MG TABLET.SA PO SCH ×3 (06:11→21:13)
[2017-05-19] MEDS: INSULIN DETEMIR 100 UNITS/ML MDV SQ SCH ×2 (06:25→17:24)
[2017-05-19] MEDS ORDERED: FUROSEMIDE 100 MG/10 ML INJECTABLE VIAL ONE (06:57)
[2017-05-19] MEDS ORDERED: INSULIN DETEMIR 100 UNITS/ML MDV SQ SCH (07:00)
[2017-05-19] MEDS ORDERED: HEPARIN NA (PORCINE) 5,000 UNITS/ML 1ML VIAL IVPUSH PRN ×4 (07:13→07:37)
[2017-05-19] MEDS ORDERED: HEPARIN - 25,000 UNIT in SODIUM CHLORIDE 495 ML IV SCH (07:15)
[2017-05-19] MEDS ORDERED: LEVOFLOXACIN 500 MG IVPB 100 ML IVPB ONE (07:16)
[2017-05-19] MEDS ORDERED: ACETAMINOPHEN 1000 MG/100 ML VIAL (NON FORMULARY) IVPB PRN (07:21)
--- NOTE | 2017-05-19 07:21 | HOSP ---
Subjective - Review of Symptoms Subjective: POSTPARTUM NURSE called for diaphoresis and chest pain/abdominal pain upon arrival pt. in respiratory distress Vital Signs Period Temp Pulse Resp BP Sys/Chandra Pulse Ox Last 24 Hr 99.2 F-102.2 F 73-128 18-20 137-175/61-98 94-95 GEN: Pt. sitting in bed, diaphoretic in moderate distress HEENT: NCAT, PERRL CARD: S Tach S1, S2 RESP: Decreased Breath sounds at bases EXT: - C/C/E CBCD WBC 16.4 K/mm3 (4.0-10.0) H 05/18/17 06:00 RBC 3.35 M/mm3 (4.00-5.60) L 05/18/17 06:00 Hgb 9.4 GM/dL (11.7-16.9) L D 05/18/17 06:00 Hct 29.5 % (35.4-49) L D 05/18/17 06:00 MCV 88.2 fl (80-96) 05/18/17 06:00 MCHC 31.7 g/dl (32.0-35.9) L 05/18/17 06:00 RDW 16.8 % (11.9-15.9) H 05/18/17 06:00 Plt Count 223 K/MM3 (134-434) 05/18/17 06:00 MPV 8.8 fl (7.5-11.1) 05/18/17 06:00 CMP Sodium 137 mmol/L (136-145) 05/18/17 06:00 Potassium 4.4 mmol/L (3.5-5.1) 05/18/17 06:00 Chloride 99 mmol/L (98-107) 05/18/17 06:00 Carbon Dioxide 32 mmol/L (21-32) 05/18/17 06:00 Anion Gap 6 (8-16) L 05/18/17 06:00 BUN 49 mg/dL (7-18) H 05/18/17 06:00 Creatinine 1.9 mg/dL (0.7-1.3) H 05/18/17 06:00 Creat Clearance w eGFR 37.60 (>60) 05/17/17 04:00 Random Glucose 169 mg/dL (74-106) H D 05/18/17 06:00 Calcium 8.7 mg/dL (8.5-10.1) 05/18/17 06:00 Total Bilirubin 0.3 mg/dL (0.2-1.0) 05/17/17 04:00 AST 13 U/L (15-37) L D 05/17/17 04:00 ALT 24 U/L (12-78) D 05/17/17 04:00 Alkaline Phosphatase 155 U/L (45-117) H D 05/17/17 04:00 Total Protein 7.0 g/dl (6.4-8.2) D 05/17/17 04:00 Albumin 3.3 g/dl (3.4-5.0) L D 05/17/17 04:00 CARDIAC ENZYMES Creatine Kinase 23 IU/L (39-308) L 05/17/17 04:00 Troponin I < 0.02 ng/ml (0.00-0.05) D 05/17/17 04:00 EKG: Stach 140 St- T acute changes inferior leads A/P.) CHEST PAIN - STAT Trop/ASA/Plavix - Coags/heparin - Cardio called - Repeat all labs - CXR - Repeat EKG - Transferred to ICU CC time: 20 minutes Physical Examination Vital Signs: Vital Signs Temperature 101.3 F H 05/19/17 06:00 Pulse Rate 128 H 05/19/17 06:00 Respiratory Rate 20 05/19/17 06:00 Blood Pressure 175/98 05/19/17 06:00 O2 Sat by Pulse Oximetry (%) 95 05/18/17 21:00 Labs: CBC, BMP 05/18/17 06:00 05/18/17 06:00
[2017-05-19] MEDS ORDERED: ASPIRIN 325 MG ENTERIC COATED TABLET (FP) PO ONE (07:26)
[2017-05-19] MEDS: HEPARIN - 25,000 UNIT in SODIUM CHLORIDE 495 ML IV SCH (07:30)
[2017-05-19] MEDS ORDERED: oxyCODONE HCL 5 MG TABLET PO PRN (07:37)
[2017-05-19] MEDS ORDERED: POLYETHYLENE GLYCOL 3350 119 GM BTL PO PRN (07:37)
[2017-05-19] MEDS ORDERED: ZOLPIDEM TARTRATE 5 MG TABLET PO PRN (07:37)
[2017-05-19] MEDS ORDERED: SODIUM CHLORIDE 1,000 ML IV SCH (07:37)
[2017-05-19] MEDS ORDERED: ACETAMINOPHEN 325 MG TABLET (FP) PO PRN (07:37)
[2017-05-19] MEDS ORDERED: HEPARIN INFUSION - 500 ML IVPB ONE (07:50)
--- NOTE | 2017-05-19 08:15 | RAPID ---
Physical Examination Vital Signs: Vital Signs Temperature 101.3 F H 05/19/17 06:00 Pulse Rate 128 H 05/19/17 06:00 Respiratory Rate 20 05/19/17 06:00 Blood Pressure 175/98 05/19/17 06:00 O2 Sat by Pulse Oximetry (%) 95 05/18/17 21:00 Rapid Response - Rapid Response Assessment: Rapid Response was called and patient was found to be in respiratory distress. On evaluation patient was in moderate respiratory distress saturating in the 90' s on 4 liters and diaphoretic complaining of abdominal and chest pain. PHYSICAL EXAM: General: Awake, Alert, diaphoretic, in moderate distress LUNGS: Course Crackles throughout lung bases bilaterally. CHEST: Tachycardic with regular rhythm. Normal S1 and S2 EXTREMITIES: No peripheral edema noted VITALS: BP: 180'S/108 HEART RATE: 120'S BPM 02 Sat: 97% on 4 L EKG: Sinus Tachycardia at [address]-T changes in inferior leads. QTc prolongation ASSESSMENT and PLAN: -Stat Lasix 40mg IVP -Stat Cardiac profile -ASA loading dose and Plavix -Repeat labs, CBC, CMP, MAG, Lactic acid, Coags -Stat Chest X-ray and Abdominal X-Ray -Patient transferred to ICU -Recommended Heparin drip order, Metoprolol and Morphine -Discontinued Levaquin and Zofran due to QTc prolongation -In Store Marketer contacted -Family contacted
[2017-05-19 08:18] LABS: MCH 28.4 pg (25.7-33.7); MCHC 32.1 g/dl (32.0-35.9); MEAN CELL VOLUME 88.3 fl (80-96); MEAN PLT VOLUME 8.6 fl (7.5-11.1); PLATELET COUNT 245 K/MM3 (134-434); RDW 16.5 % (11.9-15.9); WHITE BLOOD COUNT 19.3 K/mm3 (4.0-10.0)
[2017-05-19 08:30] LABS: INR 1.2 (0.82-1.09); PROTHROMBIN TIME (PATIENT) 13.2 SEC (9.98-11.88)
[2017-05-19] MEDS ORDERED: FUROSEMIDE 40 MG/4 ML INJECTABLE VIAL IVPUSH ONE ×2 (08:30→22:49)
[2017-05-19] MEDS: HEPARIN NA (PORCINE) 5,000 UNITS/ML 1ML VIAL IVPUSH PRN ×2 (08:34→17:14)
[2017-05-19 09:00] LABS: ALBUMIN 2.7 g/dl (3.4-5.0); ANION GAP 12 (8-16); BILIRUBIN,TOTAL 0.7 mg/dL (0.2-1.0); CALCIUM 8.8 mg/dL (8.5-10.1); CO2 26 mmol/L (21-32); CREATININE 1.8 mg/dL (0.7-1.3); GLUCOSE,RANDOM 178 mg/dL (74-106); MAGNESIUM 2.3 mg/dL (1.8-2.4); SGOT/AST 25 U/L (15-37); SGPT/ALT 25 U/L (12-78); TOT PROT 6.3 g/dl (6.4-8.2)
--- NOTE | 2017-05-19 09:09 | CONSULT ---
Consultation: REQUESTING PROVIDER: CONSULT REQUEST: We have been asked to medically evaluate this patient for dyspnea and ST segment changes in the ICU. HISTORY OF PRESENT ILLNESS: 67 year old male with past medical history of severe COPD on O2 at home, DM, CKD , CVA, CAD s/p 5 stents, s/p Stemi w/ PCI 2011, ischemic cardiomyopathy with systolic CHF. Patient came to the ED 2 days ago with sepsis 2/2 pneumonia. This morning a rapid response was called around 7am from the 7th floor for diaphoresis, acute ST segment changes. Patient was placed on 4L NC, given lasix 40, placed on heparin drip. REVIEW OF SYSTEMS: CONSTITUTIONAL: diaphoresis Absent: fever, chills, generalized weakness, malaise, loss of appetite, weight change HEENT: Absent: rhinorrhea, nasal congestion, throat pain, throat swelling, difficulty swallowing, mouth swelling, ear pain, eye pain, visual changes CARDIOVASCULAR: Absent: chest pain, syncope, palpitations, irregular heart rate, lightheadedness , peripheral edema RESPIRATORY: shortness of breath Absent: cough, dyspnea with exertion, orthopnea, wheezing, stridor, hemoptysis GASTROINTESTINAL: Absent: abdominal pain, abdominal distension, nausea, vomiting, diarrhea, constipation, melena, hematochezia GENITOURINARY: Absent: dysuria, frequency, urgency, hesitancy, hematuria, flank pain, genital pain MUSCULOSKELETAL: Absent: myalgia, arthralgia, joint swelling, back pain, neck pain SKIN: Absent: rash, itching, pallor HEMATOLOGIC/IMMUNOLOGIC: Absent: easy bleeding, easy bruising, lymphadenopathy, frequent infections ENDOCRINE: Absent: unexplained weight gain, unexplained weight loss, heat intolerance, cold intolerance NEUROLOGIC: Absent: headache, focal weakness or paresthesias, dizziness, unsteady gait, seizure, mental status changes, bladder or bowel incontinence PSYCHIATRIC: anxiety Absent: depression, suicidal or homicidal ideation, hallucinations. PHYSICAL EXAMINATION Vital Signs - 24 hr 05/18/17 05/18/17 05/18/17 10:04 14:22 17:04 Temperature 99.7 F H 102.2 F H 100.0 F H Pulse Rate 79 81 73 Respiratory 20 20 18 Rate Blood Pressure 167/78 170/77 137/61 O2 Sat by Pulse Oximetry (%) 05/18/17 05/18/17 05/18/17 19:45 21:00 22:14 Temperature 101.1 F H 99.2 F Pulse Rate 82 Respiratory 18 20 Rate Blood Pressure 140/64 O2 Sat by Pulse 95 Oximetry (%) 05/19/17 05/19/17 05/19/17 00:40 02:12 06:00 Temperature 101.3 F H 100.3 F H 101.3 F H Pulse Rate 74 128 H Respiratory 20 20 Rate Blood Pressure 155/86 175/98 O2 Sat by Pulse Oximetry (%) 05/19/17 05/19/17 07:30 08:36 Temperature 102.8 F H 100.8 F H Pulse Rate 128 H 88 Respiratory 18 18 Rate Blood Pressure 174/80 103/70 O2 Sat by Pulse Oximetry (%) GENERAL: Awake, alert, and fully oriented, mildly anxious HEAD: Normal with no signs of trauma. EYES: Pupils equal, round and reactive to light, extraocular movements intact, sclera anicteric, conjunctiva clear. No lid lag. EARS, NOSE, THROAT: Ears normal, nares patent, oropharynx clear without exudates. Moist mucous membranes. NECK: Normal range of motion, supple without lymphadenopathy, JVD, or masses. LUNGS: Breath sounds equal, clear to auscultation bilaterally. No wheezes, and no crackles. some accessory muscle use HEART: Regular rate and rhythm, normal S1 and S2 without murmur, rub or gallop. ABDOMEN: Soft, nontender, not distended, normoactive bowel sounds, no guarding, no rebound, no masses. No hepatomegaly or splenomegaly. MUSCULOSKELETAL: Normal range of motion at all joints. No bony deformities or tenderness. No CVA tenderness. UPPER EXTREMITIES: 2+ pulses, warm, well-perfused. No cyanosis. No clubbing. Cap refill <2 seconds. No peripheral edema. LOWER EXTREMITIES: 2+ pulses, warm, well-perfused. No calf tenderness. No peripheral edema. NEUROLOGICAL: Cranial nerves II-XII intact. Normal speech. Normal gait. PSYCHIATRIC: Cooperative. Good eye contact. Appropriate mood and affect. SKIN: Warm, dry, normal turgor, no rashes or lesions noted. CBC, BMP 05/19/17 07:40 05/19/17 07:40 CMP Sodium 140 mmol/L (136-145) 05/19/17 07:40 Potassium 4.0 mmol/L (3.5-5.1) 05/19/17 07:40 Chloride 102 mmol/L (98-107) 05/19/17 07:40 Carbon Dioxide 26 mmol/L (21-32) 05/19/17 07:40 Anion Gap 12 (8-16) 05/19/17 07:40 BUN 44 mg/dL (7-18) H 05/19/17 07:40 Creatinine 1.8 mg/dL (0.7-1.3) H 05/19/17 07:40 Creat Clearance w eGFR 37.60 (>60) 05/19/17 07:40 POC Glucometer 220.97680 UNITS (()) 05/19/17 09:47 Random Glucose 178 mg/dL (74-106) H 05/19/17 07:40 Lactic Acid 1.6 mmol/L (0.4-2.0) 05/19/17 07:40 Calcium 8.8 mg/dL (8.5-10.1) 05/19/17 07:40 Phosphorus 3.1 mg/dL (2.5-4.9) D 05/18/17 06:00 Magnesium 2.3 mg/dL (1.8-2.4) 05/19/17 07:40 Total Bilirubin 0.7 mg/dL (0.2-1.0) D 05/19/17 07:40 AST 25 U/L (15-37) D 05/19/17 07:40 ALT 25 U/L (12-78) 05/19/17 07:40 Alkaline Phosphatase 100 U/L (45-117) D 05/19/17 07:40 Creatine Kinase 110 IU/L (39-308) 05/19/17 13:30 Troponin I 0.84 ng/ml (0.00-0.05) H* D 05/19/17 07:40 B-Natriuretic Peptide 5638.51 pg/ml (5-125) H 05/17/17 08:00 Total Protein 6.3 g/dl (6.4-8.2) L 05/19/17 07:40 Albumin 2.7 g/dl (3.4-5.0) L 05/19/17 07:40 Active Medications Generic Name Dose Route Start Last Admin Trade Name Freq PRN Reason Stop Dose Admin Acetaminophen 1,000 mg 05/19/17 07:21 Ofirmev Injection - IVPB 05/20/17 01:22 Q6H PRN FEVER OR PAIN Acetaminophen 650 mg 05/19/17 07:37 Tylenol - PO Q4H PRN FEVER OR PAIN Aclidinium [place] 1 puff 05/19/17 10:00 Tudorza - IH BID [facility] Albuterol Sulfate 1 amp 05/19/17 12:00 Ventolin 0.083% Nebulizer Soln - NEB QIDR RADHA Aspirin 81 mg 05/19/17 10:00 Ecotrin - PO DAILY [facility] Budesonide/Formoterol Fumarate 2 puff 05/19/17 10:00 Symbicort 160/4.5mcg - IH BID [facility] Clopidogrel Bisulfate 75 mg 05/19/17 10:00 Plavix - PO DAILY [facility] Collagenase 1 applic 05/19/17 10:00 Santyl - TP DAILY [facility] Docusate Sodium 100 mg 05/19/17 10:00 Colace - PO BID [facility] Heparin Sodium (Porcine) 5,000 unit 05/19/17 07:37 05/19/17 08:34 Heparin - IVPUSH 5,000 unit PRN PRN Administration Heparin Heparin Sodium (Porcine) 1,000 unit 05/19/17 07:37 Heparin - IVPUSH PRN PRN Heparin Hydralazine HCl 10 mg 05/19/17 10:00 Apresoline - PO BID [facility] Heparin Sodium (Porcine) 25, 500 mls @ 20 mls/hr 05/19/17 07:37 000 unit/ Sodium Chloride IV TITR [facility] Protocol 1,000 UNIT/HR Sodium Chloride 1,000 mls @ 50 mls/hr 05/19/17 07:37 Normal Saline - IV 05/19/17 16:46 ASDIR [facility] Piperacillin Sod/Tazobactam Sod 50 mls @ 100 mls/hr 05/19/17 10:00 Zosyn 3.375gm Ivpb (Pre-Docked) IVPB Q8H-IV [facility] Protocol Insulin Aspart 1 vial 05/19/17 11:00 Novolog Vial Sliding Scale - SQ ACHS [facility] Protocol Insulin Detemir 25 units 05/19/17 16:30 Levemir Vial SQ BIDAC [facility] Magnesium Oxide 400 mg 05/19/17 10:00 Mag-Ox - PO BID [facility] Metoprolol Tartrate 50 mg 05/19/17 10:00 Lopressor - PO DAILY RADHA Morphine Sulfate 60 mg 05/19/17 14:00 Ms Contin - PO TID RADHA Non-Formulary Medication 30 mg 05/19/17 10:00 Lansoprazole [Prevacid] PO DAILY RADHA Oxycodone HCl 10 mg 05/19/17 07:37 Roxicodone - PO Q4H PRN PAIN Polyethylene Glycol 17 gm 05/19/17 07:37 Miralax (For Daily Use) - PO BID PRN CONSTIPATION Temazepam 30 mg 05/19/17 22:00 Restoril - PO HS RADHA Zolpidem Tartrate 5 mg 05/19/17 07:37 Ambien - PO HS PRN sleep ASSESSMENT/PLAN: 67 year old male with severe COPD, DM, CAD, hx of CVA monitored in the ICU with acute ST changes possible ischemia Neuro: patient is anxious -start benadryl 25mg IV push PRN anxiety -ambien for sleep Cardiovascular elevated troponin at 0.8 --> 3.8. Hx of CAD s/p 5 stents -BP kimber to SBP > 200, benadryl administered and dropped to 149/85 -continue heparin drip -continue morphine -continue aspirin -inform Dr. Peraza -cont trend trops -Called Dr. Peraza for cardio consult at 8am Pulmonary: sepsis 2/2 pneumonia - patient satting at 98% on nasal canula -continue O2 -continue zosyn Endocrine: hx of DM -continue insulin detemir -monitor BG Dispo -f/u with Dr. Peraza for cardiology consult Dispo: We will continue to follow the patient. Thank you for this consultative opportunity. Problem List - Problems (1) Chest pain Code(s): R07.9 - CHEST PAIN, UNSPECIFIED (2) Pneumonia Code(s): J18.9 - PNEUMONIA, UNSPECIFIED ORGANISM Qualifiers: Pneumonia type: due to unspecified organism Laterality: right Lung location: upper lobe of lung Qualified Code(s): J18.1 - Lobar pneumonia, unspecified organism (3) Acute on chronic systolic and diastolic heart failure, NYHA class 2 Code(s): I50.43 - ACUTE ON CHRONIC COMBINED SYSTOLIC AND DIASTOLIC HRT FAIL (4) CKD (chronic kidney disease) Code(s): N18.9 - CHRONIC KIDNEY DISEASE, UNSPECIFIED Qualifiers: Chronic kidney disease stage: stage 2 (mild) Qualified Code(s): N18.2 - Chronic kidney disease, stage 2 (mild) (5) COPD (chronic obstructive pulmonary disease) Code(s): J44.9 - CHRONIC OBSTRUCTIVE PULMONARY DISEASE, UNSPECIFIED (6) Cardiomyopathy Code(s): I42.9 - CARDIOMYOPATHY, UNSPECIFIED Visit type - Emergency Visit Emergency Visit: No - New Patient This patient is new to me today: Yes Date on this admission: 05/19/17 - Critical Care Critical Care patient: Yes Total Critical Care Time (in minutes): 45 Critical Care Statement: The care of this patient involved high complexity decision making to prevent further life threatening deterioration of the patient 's condition and/or to evalute & treat vital organ system(s) failure or risk of failure.
[2017-05-19 09:15] LABS: ALK PHOS 100 U/L (45-117)
[2017-05-19 09:24] LABS: TROPONIN I 0.84 ng/ml (0.00-0.05)
[2017-05-19] MEDS ORDERED: METOPROLOL TARTRATE 50 MG TABLET (FP) PO SCH (10:00)
[2017-05-19] MEDS ORDERED: PATIENT'S OWN MEDICATION (NON-FORMULARY) (Lansoprazole [Prevacid] 30 MG) PO SCH (10:00)
[2017-05-19] MEDS ORDERED: HEPARIN NA (PORCINE) 5,000 UNITS/ML 1ML VIAL SQ SCH (10:00)
[2017-05-19] MEDS: PIPERACILLIN/TAZOB 3.375 GM 50 ML IVPB SCH ×2 (10:44→17:14)
[2017-05-19] MEDS: DOCUSATE SODIUM 100 MG CAPSULE (FP) PO SCH ×2 (10:44→21:12)
[2017-05-19] MEDS: MAGNESIUM OXIDE 400 MG TABLET (FP) PO SCH ×2 (10:45→21:12)
[2017-05-19] MEDS: ASPIRIN COATED 81 MG TABLET.EC PO SCH (10:45)
[2017-05-19] MEDS: CLOPIDOGREL BISULFATE 75 MG TABLET (FP) PO SCH (10:45)
[2017-05-19] MEDS: BUDESONIDE/FORMETEROL FUMARATE 160/4.5 mcg INHALER IH SCH ×2 (10:48→21:57)
[2017-05-19] MEDS: ACLIDINIUM BROMIDE 400 MCG/INH AERO.POWD IH SCH ×2 (10:48→21:57)
--- NOTE | 2017-05-19 11:42 | PN ---
Progress Note, Physician Chief Complaint: Mr Scott says he is feeling well today. No cp or sob. nausea has resolved - Current Medication List Current Medications: Active Medications Acetaminophen (Ofirmev Injection -) 1,000 mg IVPB Q6H PRN PRN Reason: FEVER OR PAIN Stop: 05/20/17 01:22 Acetaminophen (Tylenol -) 650 mg PO Q4H PRN PRN Reason: FEVER OR PAIN Aclidinium [place] (Tudorza -) 1 puff IH BID [facility] Last Admin: 05/19/17 10:48 Dose: 1 inhaler Albuterol Sulfate (Ventolin 0.083% Nebulizer Soln -) 1 amp NEB QIDR RADHA Aspirin (Ecotrin -) 81 mg PO DAILY [facility] Last Admin: 05/19/17 10:45 Dose: 81 mg Budesonide/Formoterol Fumarate (Symbicort 160/4.5mcg -) 2 puff IH BID [facility] Last Admin: 05/19/17 10:48 Dose: 2 puff Clopidogrel Bisulfate (Plavix -) 75 mg PO DAILY [facility] Last Admin: 05/19/17 10:45 Dose: 75 mg Collagenase (Santyl -) 1 applic TP DAILY [facility] Docusate Sodium (Colace -) 100 mg PO BID [facility] Last Admin: 05/19/17 10:44 Dose: 100 mg Heparin Sodium (Porcine) (Heparin -) 5,000 unit IVPUSH PRN PRN PRN Reason: Heparin Last Admin: 05/19/17 08:34 Dose: 5,000 unit Heparin Sodium (Porcine) (Heparin -) 1,000 unit IVPUSH PRN PRN PRN Reason: Heparin Hydralazine HCl (Apresoline -) 10 mg PO BID [facility] Heparin Sodium (Porcine) 25, (000 unit/ Sodium Chloride) 500 mls @ 20 mls/hr IV TITR RADHA; 1,000 UNIT/HR PRN Reason: Protocol Sodium Chloride (Normal Saline -) 1,000 mls @ 50 mls/hr IV ASDIR RADHA Stop: 05/19/17 16:46 Last Admin: 05/19/17 10:45 Dose: 50 mls/hr Piperacillin Sod/Tazobactam Sod (Zosyn 3.375gm Ivpb (Pre-Docked)) 50 mls @ 100 mls/hr IVPB Q8H-IV RADHA PRN Reason: Protocol Last Admin: 05/19/17 10:44 Dose: 100 mls/hr Insulin Aspart (Novolog Vial Sliding Scale -) 1 vial SQ ACHS [facility] PRN Reason: Protocol Insulin Detemir (Levemir Vial) 25 units SQ BIDAC [facility] Magnesium Oxide (Mag-Ox -) 400 mg PO BID [facility] Last Admin: 05/19/17 10:45 Dose: 400 mg Metoprolol Tartrate (Lopressor -) 50 mg PO DAILY [facility] Last Admin: 05/19/17 10:44 Dose: 50 mg Morphine Sulfate (Ms Contin -) 60 mg PO TID [facility] Non-Formulary Medication (Lansoprazole [Prevacid]) 30 mg PO DAILY [facility] Oxycodone HCl (Roxicodone -) 10 mg PO Q4H PRN PRN Reason: PAIN Polyethylene Glycol (Miralax (For Daily Use) -) 17 gm PO BID PRN PRN Reason: CONSTIPATION Zolpidem Tartrate (Ambien -) 5 mg PO HS PRN PRN Reason: sleep - Objective Vital Signs: Vital Signs Temperature 98.8 F 05/19/17 10:35 Pulse Rate 84 05/19/17 10:35 Respiratory Rate 18 05/19/17 10:35 Blood Pressure 124/72 05/19/17 10:35 O2 Sat by Pulse Oximetry (%) 96 05/19/17 09:00 Constitutional: Yes: No Distress, Calm, Other (slightly lethargic) Cardiovascular: Yes: Regular Rate and Rhythm. No: Gallop, Murmur, Rub Respiratory: Yes: Regular, On Nasal O2, Rhonchi. No: Rales, Wheezes Gastrointestinal: Yes: Normal Bowel Sounds, Soft. No: Distention, Tenderness Extremities: Yes: WNL Edema: No Labs: CBC, BMP 05/19/17 07:40 05/19/17 07:40 INR, PTT INR 1.20 (0.82-1.09) H 05/19/17 07:40 Problem List - Problems (1) Pneumonia Code(s): J18.9 - PNEUMONIA, UNSPECIFIED ORGANISM Qualifiers: Pneumonia type: due to unspecified organism Laterality: right Lung location: upper lobe of lung Qualified Code(s): J18.1 - Lobar pneumonia, unspecified organism (2) Sepsis Code(s): A41.9 - SEPSIS, UNSPECIFIED ORGANISM (3) Renal failure (ARF), acute on chronic Code(s): N17.9 - ACUTE KIDNEY FAILURE, UNSPECIFIED N18.9 - CHRONIC KIDNEY DISEASE, UNSPECIFIED (4) CAD (coronary artery disease) Code(s): I25.10 - ATHSCL HEART DISEASE OF [place] CORONARY ARTERY W/O ANG PCTRS Qualifiers: (5) COPD (chronic obstructive pulmonary disease) Code(s): J44.9 - CHRONIC OBSTRUCTIVE PULMONARY DISEASE, UNSPECIFIED (6) Chronic pain Code(s): G89.29 - OTHER CHRONIC PAIN (7) Congestive heart failure (CHF) Code(s): I50.9 - HEART FAILURE, UNSPECIFIED Qualifiers: Congestive heart failure type: systolic Congestive heart failure chronicity: chronic Qualified Code(s): I50.22 - Chronic systolic ( congestive) heart failure (8) Diabetes mellitus Code(s): E11.9 - TYPE 2 DIABETES MELLITUS WITHOUT COMPLICATIONS Qualifiers: Diabetes mellitus type: type 2 Diabetes mellitus complication status: with circulatory complication Diabetes mellitus complication detail: with peripheral angiopathy with gangrene Diabetes mellitus snf insulin use : with snf use Qualified Code(s): E11.52 - Type 2 diabetes mellitus with diabetic peripheral angiopathy with gangrene; Z79.4 - termite renewal inspector ( current) use of insulin (9) Diabetic foot ulcer Code(s): E11.621 - TYPE 2 DIABETES MELLITUS WITH FOOT ULCER L97.509 - NON-PRESSURE CHRONIC ULCER OTH PRT UNSP FOOT W UNSP SEVERITY (10) Hypertension Code(s): I10 - ESSENTIAL (PRIMARY) HYPERTENSION Assessment/Plan (1) Pneumonia Assessment/Plan: -rapid response overnight secondary to respiratory distress -continue antibiotics per ID -says feels improved now Code(s): J18.9 - PNEUMONIA, UNSPECIFIED ORGANISM Qualifiers: Pneumonia type: due to unspecified organism Laterality: right Lung location: upper lobe of lung Qualified Code(s): J18.1 - Lobar pneumonia, unspecified organism (2) Sepsis Assessment/Plan: -continue zosyn -stop IVF, ? fluid overload -monitor Code(s): A41.9 - SEPSIS, UNSPECIFIED ORGANISM (3) Renal failure (ARF), acute on chronic Assessment/Plan: -stop IVF -received lasix -monitor Code(s): N17.9 - ACUTE KIDNEY FAILURE, UNSPECIFIED N18.9 - CHRONIC KIDNEY DISEASE, UNSPECIFIED (4) CAD (coronary artery disease) Assessment/Plan: -elevated troponin, suspect stress induced -cardiology following Code(s): I25.10 - ATHSCL HEART DISEASE OF [place] CORONARY ARTERY W/O ANG PCTRS Qualifiers: (5) COPD (chronic obstructive pulmonary disease) Assessment/Plan: -pulmonary consulted to evaluate since had episode of respiratory distress Code(s): J44.9 - CHRONIC OBSTRUCTIVE PULMONARY DISEASE, UNSPECIFIED (6) Chronic pain Assessment/Plan: -controlled -continue ms contin with oxycodone prn Code(s): G89.29 - OTHER CHRONIC PAIN (7) Congestive heart failure (CHF) Assessment/Plan: -received lasix -stopped IVF -cardiology following Code(s): I50.9 - HEART FAILURE, UNSPECIFIED Qualifiers: Congestive heart failure type: systolic Congestive heart failure chronicity: chronic Qualified Code(s): I50.22 - Chronic systolic ( congestive) heart failure (8) Diabetes mellitus Assessment/Plan: -continue levemir -diabetic diet -SSI Code(s): E11.9 - TYPE 2 DIABETES MELLITUS WITHOUT COMPLICATIONS Qualifiers: Diabetes mellitus type: type 2 Diabetes mellitus complication status: with circulatory complication Diabetes mellitus complication detail: with peripheral angiopathy with gangrene Diabetes mellitus snf insulin use : with termite helper use Qualified Code(s): E11.52 - Type 2 diabetes mellitus with diabetic peripheral angiopathy with gangrene; Z79.4 - intermediate ( current) use of insulin (9) Diabetic foot ulcer Assessment/Plan: -healing -monitor Code(s): E11.621 - TYPE 2 DIABETES MELLITUS WITH FOOT ULCER L97.509 - NON-PRESSURE CHRONIC ULCER OTH PRT UNSP FOOT W UNSP SEVERITY (10) Hypertension Assessment/Plan: -continue lopressor and hydralazine Code(s): I10 - ESSENTIAL (PRIMARY) HYPERTENSION 33 minutes spent in critical care time
--- NOTE | 2017-05-19 12:18 | PN ---
Teaching Attending Note Name of Resident: Joao Huber ATTENDING PHYSICIAN STATEMENT I saw and evaluated the patient. I reviewed the resident's note and discussed the case with the resident. I agree with the resident's findings and plan as documented. SUBJECTIVE: Patient seen and examined in the ICU. Drowsy but easily arousable. Noted (+) troponin. Currently on IV Heparin. Intake & Output 05/16/17 05/17/17 05/18/17 05/19/17 23:59 23:59 23:59 23:59 Intake Total 950 1200 Output Total 200 400 Balance 950 1000 -400 Weight 202 lb Last Vital Signs Temp Pulse Resp BP Pulse Ox 98.8 F 84 18 124/72 97 05/19/17 10:35 05/19/17 10:35 05/19/17 10:35 05/19/17 10:35 05/19/17 10:25 Active Medications Acetaminophen (Ofirmev Injection -) 1,000 mg IVPB Q6H PRN PRN Reason: FEVER OR PAIN Stop: 05/20/17 01:22 Acetaminophen (Tylenol -) 650 mg PO Q4H PRN PRN Reason: FEVER OR PAIN Aclidinium [place] (Tudorza -) 1 puff IH BID [facility] Last Admin: 05/19/17 10:48 Dose: 1 inhaler Albuterol Sulfate (Ventolin 0.083% Nebulizer Soln -) 1 amp NEB QIDR [facility] Aspirin (Ecotrin -) 81 mg PO DAILY [facility] Last Admin: 05/19/17 10:45 Dose: 81 mg Budesonide/Formoterol Fumarate (Symbicort 160/4.5mcg -) 2 puff IH BID [facility] Last Admin: 05/19/17 10:48 Dose: 2 puff Clopidogrel Bisulfate (Plavix -) 75 mg PO DAILY [facility] Last Admin: 05/19/17 10:45 Dose: 75 mg Collagenase (Santyl -) 1 applic TP DAILY [facility] Docusate Sodium (Colace -) 100 mg PO BID [facility] Last Admin: 05/19/17 10:44 Dose: 100 mg Heparin Sodium (Porcine) (Heparin -) 5,000 unit IVPUSH PRN PRN PRN Reason: Heparin Last Admin: 05/19/17 08:34 Dose: 5,000 unit Heparin Sodium (Porcine) (Heparin -) 1,000 unit IVPUSH PRN PRN PRN Reason: Heparin Hydralazine HCl (Apresoline -) 10 mg PO BID [facility] Heparin Sodium (Porcine) 25, (000 unit/ Sodium Chloride) 500 mls @ 20 mls/hr IV TITR RADHA; 1,000 UNIT/HR PRN Reason: Protocol Sodium Chloride (Normal Saline -) 1,000 mls @ 50 mls/hr IV ASDIR [facility] Stop: 05/19/17 16:46 Last Admin: 05/19/17 10:45 Dose: 50 mls/hr Piperacillin Sod/Tazobactam Sod (Zosyn 3.375gm Ivpb (Pre-Docked)) 50 mls @ 100 mls/hr IVPB Q8H-IV RADHA PRN Reason: Protocol Last Admin: 05/19/17 10:44 Dose: 100 mls/hr Insulin Aspart (Novolog Vial Sliding Scale -) 1 vial SQ ACHS RADHA PRN Reason: Protocol Insulin Detemir (Levemir Vial) 25 units SQ BIDAC [facility] Magnesium Oxide (Mag-Ox -) 400 mg PO BID [facility] Last Admin: 05/19/17 10:45 Dose: 400 mg Metoprolol Tartrate (Lopressor -) 50 mg PO DAILY [facility] Last Admin: 05/19/17 10:44 Dose: 50 mg Morphine Sulfate (Ms Contin -) 60 mg PO TID [facility] Non-Formulary Medication (Lansoprazole [Prevacid]) 30 mg PO DAILY [facility] Oxycodone HCl (Roxicodone -) 10 mg PO Q4H PRN PRN Reason: PAIN Polyethylene Glycol (Miralax (For Daily Use) -) 17 gm PO BID PRN PRN Reason: CONSTIPATION Zolpidem Tartrate (Ambien -) 5 mg PO HS PRN PRN Reason: sleep Constitutional: Yes: Drowsy but arousable, NAD Cardiovascular: Yes: Regular Rate and Rhythm. No: Gallop, Murmur, Rub Respiratory: Yes: Bibasilar rhonchi Gastrointestinal: Yes: Normal Bowel Sounds, Soft. No: Distention, Tenderness Extremities: Yes: chronic changes Edema: No Labs: Laboratory Results - last 24 hr 05/18/17 05/18/17 05/18/17 12:50 18:05 22:17 WBC RBC Hgb Hct MCV MCH MCHC RDW Plt Count MPV INR PTT (Actin FS) Sodium Potassium Chloride Carbon Dioxide Anion Gap BUN Creatinine Creat Clearance w eGFR POC Glucometer 186 155 186 Random Glucose Lactic Acid Calcium Magnesium Total Bilirubin AST ALT Alkaline Phosphatase Creatine Kinase Troponin I Total Protein Albumin 05/19/17 05/19/17 05/19/17 05:48 07:40 07:40 WBC RBC Hgb Hct MCV MCH MCHC RDW Plt Count MPV INR PTT (Actin FS) Sodium 140 Potassium 4.0 Chloride 102 Carbon Dioxide 26 Anion Gap 12 BUN 44 H Creatinine 1.8 H Creat Clearance w eGFR 37.60 POC Glucometer 150 Random Glucose 178 H Lactic Acid 1.6 Calcium 8.8 Magnesium 2.3 Total Bilirubin 0.7 D AST 25 D ALT 25 Alkaline Phosphatase 100 D Creatine Kinase 59 Troponin I 0.84 H* D Total Protein 6.3 L Albumin 2.7 L 05/19/17 05/19/17 05/19/17 07:40 07:40 09:20 WBC 19.3 H RBC 3.75 L Hgb 10.6 L D Hct 33.1 L MCV 88.3 MCH 28.4 MCHC 32.1 RDW 16.5 H Plt Count 245 MPV 8.6 INR 1.20 H PTT (Actin FS) 28.0 Sodium Potassium Chloride Carbon Dioxide Anion Gap BUN Creatinine Creat Clearance w eGFR POC Glucometer Random Glucose Lactic Acid Calcium Magnesium Total Bilirubin AST ALT Alkaline Phosphatase Creatine Kinase Troponin I Total Protein Albumin 05/19/17 09:47 WBC RBC Hgb Hct MCV MCH MCHC RDW Plt Count MPV INR PTT (Actin FS) Sodium Potassium Chloride Carbon Dioxide Anion Gap BUN Creatinine Creat Clearance w eGFR POC Glucometer 220.84022 Random Glucose Lactic Acid Calcium Magnesium Total Bilirubin AST ALT Alkaline Phosphatase Creatine Kinase Troponin I Total Protein Albumin Problem List - Problems (1) Pneumonia Code(s): J18.9 - PNEUMONIA, UNSPECIFIED ORGANISM Qualifiers: Pneumonia type: due to unspecified organism Laterality: right Lung location: upper lobe of lung Qualified Code(s): J18.1 - Lobar pneumonia, unspecified organism (2) Sepsis Code(s): A41.9 - SEPSIS, UNSPECIFIED ORGANISM (3) Renal failure (ARF), acute on chronic Code(s): N17.9 - ACUTE KIDNEY FAILURE, UNSPECIFIED N18.9 - CHRONIC KIDNEY DISEASE, UNSPECIFIED (4) CAD (coronary artery disease) Code(s): I25.10 - ATHSCL HEART DISEASE OF [place] CORONARY ARTERY W/O ANG PCTRS Qualifiers: (5) COPD (chronic obstructive pulmonary disease) Code(s): J44.9 - CHRONIC OBSTRUCTIVE PULMONARY DISEASE, UNSPECIFIED (6) Chronic pain Code(s): G89.29 - OTHER CHRONIC PAIN (7) Congestive heart failure (CHF) Code(s): I50.9 - HEART FAILURE, UNSPECIFIED Qualifiers: Congestive heart failure type: systolic Congestive heart failure chronicity: chronic Qualified Code(s): I50.22 - Chronic systolic ( congestive) heart failure (8) Diabetes mellitus Code(s): E11.9 - TYPE 2 DIABETES MELLITUS WITHOUT COMPLICATIONS Qualifiers: Diabetes mellitus type: type 2 Diabetes mellitus complication status: with circulatory complication Diabetes mellitus complication detail: with peripheral angiopathy with gangrene Diabetes mellitus rat exterminator insulin use : with group home use Qualified Code(s): E11.52 - Type 2 diabetes mellitus with diabetic peripheral angiopathy with gangrene; Z79.4 - medical terminologist ( current) use of insulin (9) Diabetic foot ulcer Code(s): E11.621 - TYPE 2 DIABETES MELLITUS WITH FOOT ULCER L97.509 - NON-PRESSURE CHRONIC ULCER OTH PRT UNSP FOOT W UNSP SEVERITY (10) Hypertension Code(s): I10 - ESSENTIAL (PRIMARY) HYPERTENSION ABX per ID O2 as needed to maintain saturation BD TX Monitor off systemic steroids for now IV Heparin Cardiology consult has been called ECHO ordered Pain control Daily assessment for diuretics Glycemic control Local wound care Dr Perez Critical Care Total Critical Care Time (in minutes): 35 Critical Care Statement: The care of this patient involved high complexity decision making to prevent further life threatening deterioration of the patient 's condition and/or to evalute & treat vital organ system(s) failure or risk of failure.
[2017-05-19] MEDS: hydrALAZINE HCL 10 MG TABLET PO SCH ×2 (12:30→21:13)
[2017-05-19] MEDS: COLLAGENASE CLOSTRIDIUM HIST. 30 GRAMS TUBE TP SCH (12:30)
[2017-05-19] MEDS: ALBUTEROL SO4 0.083% IH SOL 2.5 MG/3 ML VIAL.NEB. NEB SCH ×2 (13:40→17:52)
[2017-05-19 15:08] LABS: TROPONIN I 3.98 ng/ml (0.00-0.05)
[2017-05-19] MEDS ORDERED: PT OWN MED DRAWER 7, Y5N ONE (15:09)
--- NOTE | 2017-05-19 15:25 | PN ---
Progress Note, Physician Chief Complaint: NSTEMI History of Present Illness: per resident notes, rapid response was called around 7am from the 7th floor for diaphoresis, acute ST segment changes ("ST-T changes inferolateral leads" per rapid response team notes). he was reportedly c/o abd pain and cp. no description of ECG changes seen are provided in notes and no ECG from that episode is found in computer pt ruled in, we are called to evaluate. now in ICU on UFH gtt - Current Medication List Current Medications: Active Medications Acetaminophen (Ofirmev Injection -) 1,000 mg IVPB Q6H PRN PRN Reason: FEVER OR PAIN Stop: 05/20/17 01:22 Acetaminophen (Tylenol -) 650 mg PO Q4H PRN PRN Reason: FEVER OR PAIN Aclidinium [place] (Tudorza -) 1 puff IH BID [facility] Last Admin: 05/19/17 10:48 Dose: 1 inhaler Albuterol Sulfate (Ventolin 0.083% Nebulizer Soln -) 1 amp NEB QIDR [facility] Last Admin: 05/19/17 13:40 Dose: 1 amp Aspirin (Ecotrin -) 81 mg PO DAILY [facility] Last Admin: 05/19/17 10:45 Dose: 81 mg Budesonide/Formoterol Fumarate (Symbicort 160/4.5mcg -) 2 puff IH BID [facility] Last Admin: 05/19/17 10:48 Dose: 2 puff Clopidogrel Bisulfate (Plavix -) 75 mg PO DAILY [facility] Last Admin: 05/19/17 10:45 Dose: 75 mg Collagenase (Santyl -) 1 applic TP DAILY [facility] Last Admin: 05/19/17 12:30 Dose: 1 inch Docusate Sodium (Colace -) 100 mg PO BID [facility] Last Admin: 05/19/17 10:44 Dose: 100 mg Heparin Sodium (Porcine) (Heparin -) 5,000 unit IVPUSH PRN PRN PRN Reason: Heparin Last Admin: 05/19/17 08:34 Dose: 5,000 unit Heparin Sodium (Porcine) (Heparin -) 1,000 unit IVPUSH PRN PRN PRN Reason: Heparin Hydralazine HCl (Apresoline -) 10 mg PO BID [facility] Last Admin: 05/19/17 12:30 Dose: 10 mg Heparin Sodium (Porcine) 25, (000 unit/ Sodium Chloride) 500 mls @ 20 mls/hr IV TITR RADHA; 1,000 UNIT/HR PRN Reason: Protocol Sodium Chloride (Normal Saline -) 1,000 mls @ 50 mls/hr IV ASDIR [facility] Stop: 05/19/17 16:46 Last Admin: 05/19/17 10:45 Dose: 50 mls/hr Piperacillin Sod/Tazobactam Sod (Zosyn 3.375gm Ivpb (Pre-Docked)) 50 mls @ 100 mls/hr IVPB Q8H-IV RADHA PRN Reason: Protocol Last Admin: 05/19/17 10:44 Dose: 100 mls/hr Insulin Aspart (Novolog Vial Sliding Scale -) 1 vial SQ ACHS RADHA PRN Reason: Protocol Last Admin: 05/19/17 12:00 Dose: 2 units Insulin Detemir (Levemir Vial) 25 units SQ BIDAC [facility] Magnesium Oxide (Mag-Ox -) 400 mg PO BID [facility] Last Admin: 05/19/17 10:45 Dose: 400 mg Metoprolol Tartrate (Lopressor -) 50 mg PO DAILY [facility] Last Admin: 05/19/17 10:44 Dose: 50 mg Morphine Sulfate (Ms Contin -) 60 mg PO TID [facility] Last Admin: 05/19/17 14:04 Dose: 60 mg Non-Formulary Medication (Lansoprazole [Prevacid]) 30 mg PO DAILY [facility] Oxycodone HCl (Roxicodone -) 10 mg PO Q4H PRN PRN Reason: PAIN Polyethylene Glycol (Miralax (For Daily Use) -) 17 gm PO BID PRN PRN Reason: CONSTIPATION Zolpidem Tartrate (Ambien -) 5 mg PO HS PRN PRN Reason: sleep - Objective Vital Signs: Vital Signs Temperature 100.1 F H 05/19/17 14:00 Pulse Rate 104 H 05/19/17 14:00 Respiratory Rate 18 05/19/17 14:00 Blood Pressure 149/89 05/19/17 14:00 O2 Sat by Pulse Oximetry (%) 97 05/19/17 10:25 Labs: CBC, BMP 05/19/17 07:40 05/19/17 07:40 INR, PTT INR 1.20 (0.82-1.09) H 05/19/17 07:40 Assessment/Plan Ecg 05/17/17: sr, rbbb, inf q's, no sig change prior Echo 05/15: mod to sev decr LVEF; severe hypokinesis of all lindsey except basal segments. nl RV. mild MR/TR. no peric eff. Echo 01/2017: mild global HK, lvef 45-50, nl rv, nl rvsp, mild lae, mild tr repeat Echo 01/17/17: --images reviewed by Dr. Mckeon: no vegetation seen; redundant, highly mobile anterior chorda to anterior MV leaflet--cannot definitively exclude vegetation attached to chord though not highly suspicious. no AV or TV vege seen. no MR/TR/AI. EF mod-severely decr'd, ? global (cannot accurately assess for RWMAs)--suspect EF is 35-40%. RV normal size, fxn not well visualized. Echo 12/2016: TDS; LVSF is "at least mildly reduced: RWM assessment tds; nl RV; nl LA; mild MR/TR; no veg seen Echo 04/2015: mod global HK; RV tds; trace AI Echo 01/2014: moderate, global LV hypokinesis; nl RV size with hypokinesis; no signif valve dysfxn CXR 05/19: CHF changes improved vs prior (but persists) EKG 05/19, 7:09:18: sinus tach, old IWMI (q's) with baseline wander artifact present, possibly 0.5mm ST elev in III, avF; nonsp ST-Ts I/avL slightly increased vs prior 03/13/17. 05/19 at 7:09:53: no change 05/19 at 15:35: NSR, old IWMI; NSST-Ts V4-6 and I/avL (V4-6 new vs baseline). inferior ST elev resolved a/p: 67 year old male with a history of dm, ckd (1.5-2), CVA 10/2014, CAD s/p STEMI and multiple pci's, ischemic CM with systolic chf, COPD, extensive smoking history (now quit 12/2016) here with cough, fever. sepsis: -? PNA. + DM foot ulcer -however cause of ongoing high fevers unknown per ID (BCxs neg to date) -cont abx per crit care/ID NSTEMI: -known unrevascularized CAD as of last cath 2011 as outlined below -no cardio f/u and no known recent stress tests -here with PNA/sepsis -trop <0.02 on admit 05/17--today's 0.84, repeated at 3.98 -ECGs c/w NSTEMI (<1mm ST elev in leads with prior Q waves is not diagnostic for transmural UT). -on ASA and plavix from before (for recurrent CVAs)--continued here -started on UFH -echo with signif drop in prior LVEF and diffuse hypokinesis of all mid and apical segments--? left main or large wrap-around LAD plaque rupture, not typical description for Takotsubo's -this is not due to sepsis, given pt had ischemic type pain sx at time of event -given pt has been persistently febrile here, including to 102.8 this am, with source still unknown (being treated for DM foot ulcer as well as PNA, ID recommending CT abdomen given ongoing abd pain complatins) would not rec invasive mgmt strategy (cath) at present, if his ischemia can be medically controlled, as he will be high risk for infectious and other serious complications of procedure. -cont BB (change metopr tartrate qd to bid) -he is currently comfortable, no more abd pain (denies every having had cp, does not recall what prior sx's were at time of 2012 UT nor does at bedside ) -add nitrates as needed if CP recurs -on atorva 40 at home, not being given here (wasn't on his admit med list), LFTs normal--start atorva 80 CAD: -s/p PCI (LIBBY) to 100% occl RPDA in 2004 ([facility]) with patent prior RCA stents at that time, EF 50% then; -s/p anterior STEMI 2011 with Bow LIBBY x 2 to mid LAD then ([facility]); residual dz then included 80% prox D1 (large vessel), 95% mD1; 70%mRCA (pre and post prior stents), 70% dCFX; (also 40% RPDA; 60% pCFX; 40% mCFX;) EF then 37% with AK of apex/AL lindsey and AK of IW; -has repeatedly refused regular cardio (used to see roddy suarez, stopped going , we see him in hospital every time but he declines f/u with us in office) -no known recent stress test -meds as described isch CMP/acute syst CHF exacerbation: -mild dec lvef on most recent echo, worsened now due to acute ischemia -vol status stable on lasix 80 qd as outpt -here with mild chf likely 2/2 pna, started lasix 40 iv qd -cont toprol, hydralazine. not on gabriel 2/2 ckd. -d/c IVF -had severe sob before which has resolved now, laying flat. given cxr remains congested (moderate pulm edema pattern on my review), will cont gentle iv diuresis--received lasix 40 ivp today--decide on further lasix in AM when review repeat cxr HTN: -bp controlled -cont current meds h/o CVA: -dx'd lacunar infarct 02/10 clinically then (slurred speech) -? acute CVA/TIA 11/13, seen by neuro then--ASA added to prior plavix at that time -same meds ckd: -cr freq fluctuates 1.5-2.9 on past admits here, most recently 1.3-1.5 in 03/15 -close to baseline range at present--trend labs prongosis guarded est crit care time in pt mgmt and data review 36 min
--- NOTE | 2017-05-19 16:17 | PN ---
Progress Note, Physician History of Present Illness: events noted patient looks critical patient transferred to icu in the room confused still spiking fevers patient had elevation of troponin - Current Medication List Current Medications: Active Medications Acetaminophen (Ofirmev Injection -) 1,000 mg IVPB Q6H PRN PRN Reason: FEVER OR PAIN Stop: 05/20/17 01:22 Acetaminophen (Tylenol -) 650 mg PO Q4H PRN PRN Reason: FEVER OR PAIN Aclidinium [place] (Tudorza -) 1 puff IH BID [facility] Last Admin: 05/19/17 10:48 Dose: 1 inhaler Albuterol Sulfate (Ventolin 0.083% Nebulizer Soln -) 1 amp NEB QIDR [facility] Last Admin: 05/19/17 13:40 Dose: 1 amp Aspirin (Ecotrin -) 81 mg PO DAILY [facility] Last Admin: 05/19/17 10:45 Dose: 81 mg Atorvastatin Calcium (Lipitor -) 80 mg PO DAILY [facility] Budesonide/Formoterol Fumarate (Symbicort 160/4.5mcg -) 2 puff IH BID [facility] Last Admin: 05/19/17 10:48 Dose: 2 puff Clopidogrel Bisulfate (Plavix -) 75 mg PO DAILY [facility] Last Admin: 05/19/17 10:45 Dose: 75 mg Collagenase (Santyl -) 1 applic TP DAILY [facility] Last Admin: 05/19/17 12:30 Dose: 1 inch Docusate Sodium (Colace -) 100 mg PO BID [facility] Last Admin: 05/19/17 10:44 Dose: 100 mg Heparin Sodium (Porcine) (Heparin -) 5,000 unit IVPUSH PRN PRN PRN Reason: Heparin Last Admin: 05/19/17 08:34 Dose: 5,000 unit Heparin Sodium (Porcine) (Heparin -) 1,000 unit IVPUSH PRN PRN PRN Reason: Heparin Hydralazine HCl (Apresoline -) 10 mg PO BID [facility] Last Admin: 05/19/17 12:30 Dose: 10 mg Heparin Sodium (Porcine) 25, (000 unit/ Sodium Chloride) 500 mls @ 20 mls/hr IV TITR RADHA; 1,000 UNIT/HR PRN Reason: Protocol Sodium Chloride (Normal Saline -) 1,000 mls @ 50 mls/hr IV ASDIR [facility] Stop: 05/19/17 16:46 Last Admin: 05/19/17 10:45 Dose: 50 mls/hr Piperacillin Sod/Tazobactam Sod (Zosyn 3.375gm Ivpb (Pre-Docked)) 50 mls @ 100 mls/hr IVPB Q8H-IV RADHA PRN Reason: Protocol Last Admin: 05/19/17 10:44 Dose: 100 mls/hr Vancomycin HCl 1,250 mg/ (Dextrose) 250 mls @ 250 mls/hr IVPB DAILY RADHA PRN Reason: Protocol Insulin Aspart (Novolog Vial Sliding Scale -) 1 vial SQ ACHS RADHA PRN Reason: Protocol Last Admin: 05/19/17 12:00 Dose: 2 units Insulin Detemir (Levemir Vial) 25 units SQ BIDAC [facility] Magnesium Oxide (Mag-Ox -) 400 mg PO BID [facility] Last Admin: 05/19/17 10:45 Dose: 400 mg Metoprolol Tartrate (Lopressor -) 50 mg PO BID [facility] Morphine Sulfate (Ms Contin -) 60 mg PO TID [facility] Last Admin: 05/19/17 14:04 Dose: 60 mg Non-Formulary Medication (Lansoprazole [Prevacid]) 30 mg PO DAILY [facility] Oxycodone HCl (Roxicodone -) 10 mg PO Q4H PRN PRN Reason: PAIN Polyethylene Glycol (Miralax (For Daily Use) -) 17 gm PO BID PRN PRN Reason: CONSTIPATION Zolpidem Tartrate (Ambien -) 5 mg PO HS PRN PRN Reason: sleep - Objective Vital Signs: Vital Signs Temperature 100.1 F H 05/19/17 14:00 Pulse Rate 104 H 05/19/17 14:00 Respiratory Rate 18 05/19/17 14:00 Blood Pressure 149/89 05/19/17 14:00 O2 Sat by Pulse Oximetry (%) 97 05/19/17 10:25 Constitutional: Yes: No Distress, Calm Eyes: Yes: Conjunctiva Clear Cardiovascular: Yes: S1, S2 Respiratory: Yes: Regular, Rhonchi Gastrointestinal: Yes: Normal Bowel Sounds, Soft Musculoskeletal: Yes: WNL Extremities: Yes: Other Labs: CBC, BMP 05/19/17 07:40 05/19/17 07:40 INR, PTT INR 1.20 (0.82-1.09) H 05/19/17 07:40 Assessment/Plan Problem List - Problems (1) Pneumonia Code(s): J18.9 - PNEUMONIA, UNSPECIFIED ORGANISM Qualifiers: Pneumonia type: due to unspecified organism Laterality: right Lung location: upper lobe of lung Qualified Code(s): J18.1 - Lobar pneumonia, unspecified organism (2) Sepsis Code(s): A41.9 - SEPSIS, UNSPECIFIED ORGANISM (3) Renal failure (ARF), acute on chronic Code(s): N17.9 - ACUTE KIDNEY FAILURE, UNSPECIFIED N18.9 - CHRONIC KIDNEY DISEASE, UNSPECIFIED (4) CAD (coronary artery disease) Code(s): I25.10 - ATHSCL HEART DISEASE OF [place] CORONARY ARTERY W/O ANG PCTRS Qualifiers: (5) COPD (chronic obstructive pulmonary disease) Code(s): J44.9 - CHRONIC OBSTRUCTIVE PULMONARY DISEASE, UNSPECIFIED (6) Chronic pain Code(s): G89.29 - OTHER CHRONIC PAIN (7) Congestive heart failure (CHF) Code(s): I50.9 - HEART FAILURE, UNSPECIFIED Qualifiers: Congestive heart failure type: systolic Congestive heart failure chronicity: chronic Qualified Code(s): I50.22 - Chronic systolic ( congestive) heart failure (8) Diabetes mellitus Code(s): E11.9 - TYPE 2 DIABETES MELLITUS WITHOUT COMPLICATIONS Qualifiers: Diabetes mellitus type: type 2 Diabetes mellitus complication status: with circulatory complication Diabetes mellitus complication detail: with peripheral angiopathy with gangrene Diabetes mellitus terminal worker insulin use : with terminal worker use Qualified Code(s): E11.52 - Type 2 diabetes mellitus with diabetic peripheral angiopathy with gangrene; Z79.4 - jail ( current) use of insulin (9) Diabetic foot ulcer Code(s): E11.621 - TYPE 2 DIABETES MELLITUS WITH FOOT ULCER L97.509 - NON-PRESSURE CHRONIC ULCER OTH PRT UNSP FOOT W UNSP SEVERITY (10) Hypertension Code(s): I10 - ESSENTIAL (PRIMARY) HYPERTENSION patient in sepsis the exact cause fever unknown yet plan continue abx cx results noted resp support monitor closely gentle hydration continue as per cardiology cc time 40 min
[2017-05-19] MEDS: VANCOMYCIN 1,250 MG in DEXTROSE 5%-WATER - 250 ML IVPB SCH (16:41)
[2017-05-19] MEDS: ATORVASTATIN CA 80 MG TABLET (FP) PO SCH (16:47)
[2017-05-19] MEDS: METOPROLOL TARTRATE 50 MG TABLET (FP) PO SCH (21:12)
[2017-05-19] MEDS ORDERED: TEMAZEPAM 15 MG CAPSULE PO SCH (22:00)
[2017-05-19] MEDS ORDERED: FUROSEMIDE 40 MG/4 ML INJECTABLE VIAL ONE (23:54)
[2017-05-20] MEDS: HEPARIN NA (PORCINE) 5,000 UNITS/ML 1ML VIAL IVPUSH PRN ×4 (00:29→22:37)
--- NOTE | 2017-05-20 00:59 | PN ---
Progress Note (short form) - Note Progress Note: This pm pt with dyspnea, hypertensive to ANE150, HR 104 and anxious m/l in setting of flash pulmonary edema. Placed on BiPAP 15/5 50%, albuterol and lasix 40mg given. Dupree cath placed. Less anxious and dyspneic on BiPAP. SBP down to 150's.
[2017-05-20] MEDS: PIPERACILLIN/TAZOB 3.375 GM 50 ML IVPB SCH ×3 (01:09→17:49)
[2017-05-20 05:51] LABS: MCH 27.7 pg (25.7-33.7); MCHC 31.5 g/dl (32.0-35.9); MEAN PLT VOLUME 8.7 fl (7.5-11.1); PLATELET COUNT 286 K/MM3 (134-434); RDW 16.7 % (11.9-15.9); WHITE BLOOD COUNT 19.3 K/mm3 (4.0-10.0)
[2017-05-20] MEDS: ALBUTEROL SO4 0.083% IH SOL 2.5 MG/3 ML VIAL.NEB. NEB SCH ×4 (06:05→19:30)
[2017-05-20] MEDS: morphine SO4 SUSTAINED ACTING 30 MG TABLET.SA PO SCH ×3 (06:16→22:19)
[2017-05-20] MEDS: INSULIN DETEMIR 100 UNITS/ML MDV SQ SCH ×2 (06:17→16:43)
[2017-05-20] MEDS: INSULIN SLIDING SCALE (NOVOLOG) 1 VIAL SQ SCH ×4 (06:18→22:26)
[2017-05-20 07:00] LABS: TROPONIN I 3.11 ng/ml (0.00-0.05)
[2017-05-20] MEDS: HEPARIN - 25,000 UNIT in SODIUM CHLORIDE 495 ML IV SCH ×2 (07:00→12:48)
[2017-05-20 08:11] LABS: ALBUMIN 2.6 g/dl (3.4-5.0); ANION GAP 11 (8-16); BILIRUBIN,TOTAL 0.4 mg/dL (0.2-1.0); CALCIUM 8.5 mg/dL (8.5-10.1); CO2 28 mmol/L (21-32); CREATININE 1.6 mg/dL (0.7-1.3); GLUCOSE,RANDOM 190 mg/dL (74-106); SGOT/AST 28 U/L (15-37); SGPT/ALT 29 U/L (12-78); TOT PROT 6.1 g/dl (6.4-8.2)
[2017-05-20 08:30] LABS: ALK PHOS 88 U/L (45-117)
[2017-05-20] MEDS ORDERED: PT OWN MED DRAWER 7, Y5N ONE ×2 (08:54→23:22)
[2017-05-20] MEDS: METOPROLOL TARTRATE 50 MG TABLET (FP) PO SCH ×3 (09:01→22:20)
[2017-05-20] MEDS: ASPIRIN COATED 81 MG TABLET.EC PO SCH (09:01)
[2017-05-20] MEDS: DOCUSATE SODIUM 100 MG CAPSULE (FP) PO SCH ×2 (09:01→22:20)
[2017-05-20] MEDS: ATORVASTATIN CA 80 MG TABLET (FP) PO SCH (09:01)
[2017-05-20] MEDS: hydrALAZINE HCL 10 MG TABLET PO SCH ×3 (09:02→22:20)
[2017-05-20] MEDS: CLOPIDOGREL BISULFATE 75 MG TABLET (FP) PO SCH (09:02)
[2017-05-20] MEDS: MAGNESIUM OXIDE 400 MG TABLET (FP) PO SCH ×2 (09:02→22:20)
[2017-05-20] MEDS: COLLAGENASE CLOSTRIDIUM HIST. 30 GRAMS TUBE TP SCH (09:03)
[2017-05-20] MEDS: BUDESONIDE/FORMETEROL FUMARATE 160/4.5 mcg INHALER IH SCH ×2 (09:21→22:22)
[2017-05-20] MEDS: ACLIDINIUM BROMIDE 400 MCG/INH AERO.POWD IH SCH ×2 (09:22→22:22)
--- NOTE | 2017-05-20 09:55 | PN ---
Progress Note (short form) - Note Progress Note: Patient seen and examined in the ICU. More awake and alert today. Apparently he had suspected APE due to accelerated HTN and required NIPPV overnight. CXR : Under penetrated but does look like increased bilateral vascular congestion Now on NC O2. Mildly tachypneic at rest. Denies CP or abdominal pain. Intake & Output 05/17/17 05/18/17 05/19/17 05/20/17 23:59 23:59 23:59 23:59 Intake Total 950 1200 1210 1292 Output Total 200 1100 850 Balance 950 1000 110 442 Weight 202 lb 207 lb 3.752 oz Last Vital Signs Temp Pulse Resp BP Pulse Ox 100.7 F H 106 H 22 179/97 90 L 05/20/17 08:00 05/20/17 08:00 05/20/17 08:00 05/20/17 08:00 05/20/17 08:32 Active Medications Acetaminophen (Tylenol -) 650 mg PO Q4H PRN PRN Reason: FEVER OR PAIN Last Admin: 05/20/17 09:01 Dose: 650 mg Aclidinium [place] (Tudorza -) 1 puff IH BID [facility] Last Admin: 05/20/17 09:22 Dose: 1 inhaler Albuterol Sulfate (Ventolin 0.083% Nebulizer Soln -) 1 amp NEB QIDR [facility] Last Admin: 05/20/17 06:05 Dose: 1 amp Aspirin (Ecotrin -) 81 mg PO DAILY [facility] Last Admin: 05/20/17 09:01 Dose: 81 mg Atorvastatin Calcium (Lipitor -) 80 mg PO DAILY [facility] Last Admin: 05/20/17 09:01 Dose: 80 mg Budesonide/Formoterol Fumarate (Symbicort 160/4.5mcg -) 2 puff IH BID [facility] Last Admin: 05/20/17 09:21 Dose: 2 puff Clopidogrel Bisulfate (Plavix -) 75 mg PO DAILY [facility] Last Admin: 05/20/17 09:02 Dose: 75 mg Collagenase (Santyl -) 1 applic TP DAILY [facility] Last Admin: 05/20/17 09:03 Dose: 1 inch Docusate Sodium (Colace -) 100 mg PO BID [facility] Last Admin: 05/20/17 09:01 Dose: 100 mg Heparin Sodium (Porcine) (Heparin -) 5,000 unit IVPUSH PRN PRN PRN Reason: Heparin Last Admin: 05/20/17 00:29 Dose: 5,000 unit Heparin Sodium (Porcine) (Heparin -) 1,000 unit IVPUSH PRN PRN PRN Reason: Heparin Last Admin: 05/20/17 07:30 Dose: 1,000 unit Hydralazine HCl (Apresoline -) 10 mg PO BID [facility] Last Admin: 05/20/17 09:02 Dose: 10 mg Heparin Sodium (Porcine) 25, (000 unit/ Sodium Chloride) 500 mls @ 20 mls/hr IV TITR RADHA; 1,000 UNIT/HR PRN Reason: Protocol Last Titration: 05/20/17 07:30 Dose: 1,350 unit/hr Piperacillin Sod/Tazobactam Sod (Zosyn 3.375gm Ivpb (Pre-Docked)) 50 mls @ 100 mls/hr IVPB Q8H-IV RADHA PRN Reason: Protocol Last Admin: 05/20/17 09:00 Dose: 100 mls/hr Vancomycin HCl 1,250 mg/ (Dextrose) 250 mls @ 166.667 mls/hr IVPB DAILY [facility] PRN Reason: Protocol Last Admin: 05/20/17 09:59 Dose: 166.667 mls/hr Insulin Aspart (Novolog Vial Sliding Scale -) 1 vial SQ ACHS RADHA PRN Reason: Protocol Last Admin: 05/20/17 06:18 Dose: 2 units Insulin Detemir (Levemir Vial) 25 units SQ BIDAC [facility] Last Admin: 05/20/17 06:17 Dose: 25 units Magnesium Oxide (Mag-Ox -) 400 mg PO BID [facility] Last Admin: 05/20/17 09:02 Dose: 400 mg Metoprolol Tartrate (Lopressor -) 50 mg PO BID [facility] Last Admin: 05/20/17 09:01 Dose: 50 mg Morphine Sulfate (Ms Contin -) 60 mg PO TID [facility] Last Admin: 05/20/17 06:16 Dose: 60 mg Non-Formulary Medication (Lansoprazole [Prevacid]) 30 mg PO DAILY [facility] Oxycodone HCl (Roxicodone -) 10 mg PO Q4H PRN PRN Reason: PAIN Polyethylene Glycol (Miralax (For Daily Use) -) 17 gm PO BID PRN PRN Reason: CONSTIPATION Zolpidem Tartrate (Ambien -) 5 mg PO HS PRN PRN Reason: sleep Constitutional: Yes: Awake and alert, mildly tachypneic at rest Cardiovascular: Yes: Regular Rate and Rhythm. No: Gallop, Murmur, Rub Respiratory: Yes: Bibasilar rhonchi/rales Gastrointestinal: Yes: Normal Bowel Sounds, Soft. No: Distention, Tenderness Extremities: Yes: chronic changes Edema: No Labs: Laboratory Results - last 24 hr 05/19/17 05/19/17 05/19/17 09:47 13:30 16:10 WBC RBC Hgb Hct MCV MCH MCHC RDW Plt Count MPV PTT (Actin FS) 40.5 H D Sodium Potassium Chloride Carbon Dioxide Anion Gap BUN Creatinine Creat Clearance w eGFR POC Glucometer [phone] Random Glucose Calcium Total Bilirubin AST ALT Alkaline Phosphatase Creatine Kinase 110 Troponin I 3.98 H* D Total Protein Albumin 05/19/17 05/19/17 05/19/17 17:20 21:21 22:30 WBC RBC Hgb Hct MCV MCH MCHC RDW Plt Count MPV PTT (Actin FS) 37.4 H Sodium Potassium Chloride Carbon Dioxide Anion Gap BUN Creatinine Creat Clearance w eGFR POC Glucometer 264.85498 255.92854 Random Glucose Calcium Total Bilirubin AST ALT Alkaline Phosphatase Creatine Kinase Troponin I Total Protein Albumin 05/20/17 05/20/17 05/20/17 05:10 05:10 05:10 WBC 19.3 H RBC 3.55 L Hgb 9.8 L Hct 31.2 L MCV 88.0 MCH 27.7 MCHC 31.5 L RDW 16.7 H Plt Count 286 MPV 8.7 PTT (Actin FS) 49.1 H D Sodium 140 Potassium 3.9 Chloride 101 Carbon Dioxide 28 Anion Gap 11 BUN 46 H Creatinine 1.6 H Creat Clearance w eGFR 43.07 POC Glucometer Random Glucose 190 H Calcium 8.5 Total Bilirubin 0.4 D AST 28 ALT 29 Alkaline Phosphatase 88 Creatine Kinase 51 Troponin I 3.11 H* Total Protein 6.1 L Albumin 2.6 L 05/20/17 06:16 WBC RBC Hgb Hct MCV MCH MCHC RDW Plt Count MPV PTT (Actin FS) Sodium Potassium Chloride Carbon Dioxide Anion Gap BUN Creatinine Creat Clearance w eGFR POC Glucometer 209.19337 Random Glucose Calcium Total Bilirubin AST ALT Alkaline Phosphatase Creatine Kinase Troponin I Total Protein Albumin Problem List - Problems (1) Pneumonia Code(s): J18.9 - PNEUMONIA, UNSPECIFIED ORGANISM Qualifiers: Pneumonia type: due to unspecified organism Laterality: right Lung location: upper lobe of lung Qualified Code(s): J18.1 - Lobar pneumonia, unspecified organism (2) Sepsis Code(s): A41.9 - SEPSIS, UNSPECIFIED ORGANISM (3) Renal failure (ARF), acute on chronic Code(s): N17.9 - ACUTE KIDNEY FAILURE, UNSPECIFIED N18.9 - CHRONIC KIDNEY DISEASE, UNSPECIFIED (4) CAD (coronary artery disease) Code(s): I25.10 - ATHSCL HEART DISEASE OF [place] CORONARY ARTERY W/O ANG PCTRS Qualifiers: (5) COPD (chronic obstructive pulmonary disease) Code(s): J44.9 - CHRONIC OBSTRUCTIVE PULMONARY DISEASE, UNSPECIFIED (6) Chronic pain Code(s): G89.29 - OTHER CHRONIC PAIN (7) Congestive heart failure (CHF) Code(s): I50.9 - HEART FAILURE, UNSPECIFIED Qualifiers: Congestive heart failure type: systolic Congestive heart failure chronicity: chronic Qualified Code(s): I50.22 - Chronic systolic ( congestive) heart failure (8) Diabetes mellitus Code(s): E11.9 - TYPE 2 DIABETES MELLITUS WITHOUT COMPLICATIONS Qualifiers: Diabetes mellitus type: type 2 Diabetes mellitus complication status: with circulatory complication Diabetes mellitus complication detail: with peripheral angiopathy with gangrene Diabetes mellitus fdc insulin use : with termite control representative use Qualified Code(s): E11.52 - Type 2 diabetes mellitus with diabetic peripheral angiopathy with gangrene; Z79.4 - termite control representative ( current) use of insulin (9) Diabetic foot ulcer Code(s): E11.621 - TYPE 2 DIABETES MELLITUS WITH FOOT ULCER L97.509 - NON-PRESSURE CHRONIC ULCER OTH PRT UNSP FOOT W UNSP SEVERITY (10) Hypertension Code(s): I10 - ESSENTIAL (PRIMARY) HYPERTENSION Lasix ABX per ID O2 as needed to maintain saturation / NIPPV to decrease WOB BD TX Monitor off systemic steroids for now AC Cardiology consult noted : titrate BB / Hydralazine as BP still elevated Pain control Daily assessment for diuretics Glycemic control Local wound care Dr Perez Critical Care Total Critical Care Time (in minutes): 35 Critical Care Statement: The care of this patient involved high complexity decision making to prevent further life threatening deterioration of the patient 's condition and/or to evalute & treat vital organ system(s) failure or risk of failure.
[2017-05-20] MEDS: VANCOMYCIN 1,250 MG in DEXTROSE 5%-WATER - 250 ML IVPB SCH (09:59)
[2017-05-20] MEDS ORDERED: FUROSEMIDE 40 MG/4 ML INJECTABLE VIAL IVPUSH ONE (10:04)
--- NOTE | 2017-05-20 10:30 | PN ---
Progress Note, Physician Chief Complaint: Mr Scott complains of not being able to sleep. No cp, sob, n/v. - Current Medication List Current Medications: Active Medications Acetaminophen (Tylenol -) 650 mg PO Q4H PRN PRN Reason: FEVER OR PAIN Last Admin: 05/20/17 09:01 Dose: 650 mg Aclidinium [place] (Tudorza -) 1 puff IH BID [facility] Last Admin: 05/20/17 09:22 Dose: 1 inhaler Albuterol Sulfate (Ventolin 0.083% Nebulizer Soln -) 1 amp NEB QIDR [facility] Last Admin: 05/20/17 06:05 Dose: 1 amp Aspirin (Ecotrin -) 81 mg PO DAILY [facility] Last Admin: 05/20/17 09:01 Dose: 81 mg Atorvastatin Calcium (Lipitor -) 80 mg PO DAILY [facility] Last Admin: 05/20/17 09:01 Dose: 80 mg Budesonide/Formoterol Fumarate (Symbicort 160/4.5mcg -) 2 puff IH BID [facility] Last Admin: 05/20/17 09:21 Dose: 2 puff Clopidogrel Bisulfate (Plavix -) 75 mg PO DAILY [facility] Last Admin: 05/20/17 09:02 Dose: 75 mg Collagenase (Santyl -) 1 applic TP DAILY [facility] Last Admin: 05/20/17 09:03 Dose: 1 inch Docusate Sodium (Colace -) 100 mg PO BID [facility] Last Admin: 05/20/17 09:01 Dose: 100 mg Furosemide (Lasix Injection -) 40 mg IVPUSH ONCE ONE Stop: 05/20/17 10:05 Heparin Sodium (Porcine) (Heparin -) 5,000 unit IVPUSH PRN PRN PRN Reason: Heparin Last Admin: 05/20/17 00:29 Dose: 5,000 unit Heparin Sodium (Porcine) (Heparin -) 1,000 unit IVPUSH PRN PRN PRN Reason: Heparin Last Admin: 05/20/17 07:30 Dose: 1,000 unit Hydralazine HCl (Apresoline -) 10 mg PO TID [facility] Heparin Sodium (Porcine) 25, (000 unit/ Sodium Chloride) 500 mls @ 20 mls/hr IV TITR RADHA; 1,000 UNIT/HR PRN Reason: Protocol Last Titration: 05/20/17 07:30 Dose: 1,350 unit/hr Piperacillin Sod/Tazobactam Sod (Zosyn 3.375gm Ivpb (Pre-Docked)) 50 mls @ 100 mls/hr IVPB Q8H-IV RADHA PRN Reason: Protocol Last Admin: 05/20/17 09:00 Dose: 100 mls/hr Vancomycin HCl 1,250 mg/ (Dextrose) 250 mls @ 166.667 mls/hr IVPB DAILY [facility] PRN Reason: Protocol Last Admin: 05/20/17 09:59 Dose: 166.667 mls/hr Insulin Aspart (Novolog Vial Sliding Scale -) 1 vial SQ ACHS [facility] PRN Reason: Protocol Last Admin: 05/20/17 06:18 Dose: 2 units Insulin Detemir (Levemir Vial) 30 units SQ BIDAC [facility] Magnesium Oxide (Mag-Ox -) 400 mg PO BID [facility] Last Admin: 05/20/17 09:02 Dose: 400 mg Metoprolol Tartrate (Lopressor -) 50 mg PO TID [facility] Morphine Sulfate (Ms Contin -) 60 mg PO TID [facility] Last Admin: 05/20/17 06:16 Dose: 60 mg Non-Formulary Medication (Lansoprazole [Prevacid]) 30 mg PO DAILY [facility] Oxycodone HCl (Roxicodone -) 10 mg PO Q4H PRN PRN Reason: PAIN Polyethylene Glycol (Miralax (For Daily Use) -) 17 gm PO BID PRN PRN Reason: CONSTIPATION Zolpidem Tartrate (Ambien -) 5 mg PO HS PRN PRN Reason: sleep - Objective Vital Signs: Vital Signs Temperature 100.7 F H 05/20/17 08:00 Pulse Rate 106 H 05/20/17 08:00 Respiratory Rate 05/20/17 08:00 Blood Pressure 179/97 05/20/17 08:00 O2 Sat by Pulse Oximetry (%) 90 L 05/20/17 08:32 Constitutional: Yes: No Distress, Calm, Obese Cardiovascular: Yes: Regular Rate and Rhythm. No: Gallop, Murmur, Rub Respiratory: Yes: Regular, CTA Bilaterally, On Nasal O2. No: Rales, Rhonchi, Wheezes Gastrointestinal: Yes: Normal Bowel Sounds, Soft. No: Distention, Tenderness Extremities: Yes: WNL Edema: No Labs: CBC, BMP 05/20/17 05:10 05/20/17 05:10 INR, PTT INR 1.20 (0.82-1.09) H 05/19/17 07:40 Problem List - Problems (1) Pneumonia Code(s): J18.9 - PNEUMONIA, UNSPECIFIED ORGANISM Qualifiers: Pneumonia type: due to unspecified organism Laterality: right Lung location: unspecified part of lung Qualified Code(s): J18.9 - Pneumonia, unspecified organism (2) Sepsis Code(s): A41.9 - SEPSIS, UNSPECIFIED ORGANISM (3) Renal failure (ARF), acute on chronic Code(s): N17.9 - ACUTE KIDNEY FAILURE, UNSPECIFIED N18.9 - CHRONIC KIDNEY DISEASE, UNSPECIFIED (4) CAD (coronary artery disease) Code(s): I25.10 - ATHSCL HEART DISEASE OF [place] CORONARY ARTERY W/O ANG PCTRS Qualifiers: (5) COPD (chronic obstructive pulmonary disease) Code(s): J44.9 - CHRONIC OBSTRUCTIVE PULMONARY DISEASE, UNSPECIFIED (6) Chronic pain Code(s): G89.29 - OTHER CHRONIC PAIN (7) Congestive heart failure (CHF) Code(s): I50.9 - HEART FAILURE, UNSPECIFIED Qualifiers: Congestive heart failure type: systolic Congestive heart failure chronicity: chronic Qualified Code(s): I50.22 - Chronic systolic ( congestive) heart failure (8) Diabetes mellitus Code(s): E11.9 - TYPE 2 DIABETES MELLITUS WITHOUT COMPLICATIONS Qualifiers: Diabetes mellitus type: type 2 Diabetes mellitus complication status: with circulatory complication Diabetes mellitus complication detail: with peripheral angiopathy with gangrene Diabetes mellitus residential insulin use : with moth exterminator use Qualified Code(s): E11.52 - Type 2 diabetes mellitus with diabetic peripheral angiopathy with gangrene; Z79.4 - moth exterminator ( current) use of insulin (9) Diabetic foot ulcer Code(s): E11.621 - TYPE 2 DIABETES MELLITUS WITH FOOT ULCER L97.509 - NON-PRESSURE CHRONIC ULCER OTH PRT UNSP FOOT W UNSP SEVERITY (10) Hypertension Code(s): I10 - ESSENTIAL (PRIMARY) HYPERTENSION Assessment/Plan (1) Pneumonia Assessment/Plan: -seen on CT scan -continue vancomycin and zosyn Code(s): J18.9 - PNEUMONIA, UNSPECIFIED ORGANISM Qualifiers: Pneumonia type: due to unspecified organism Laterality: right Lung location: upper lobe of lung Qualified Code(s): J18.1 - Lobar pneumonia, unspecified organism (2) Sepsis Assessment/Plan: -improving Code(s): A41.9 - SEPSIS, UNSPECIFIED ORGANISM (3) Renal failure (ARF), acute on chronic Assessment/Plan: -improving -continue to monitor Code(s): N17.9 - ACUTE KIDNEY FAILURE, UNSPECIFIED N18.9 - CHRONIC KIDNEY DISEASE, UNSPECIFIED (4) CAD (coronary artery disease) Assessment/Plan: -NSTEMI -cardiology following, medically manage Code(s): I25.10 - ATHSCL HEART DISEASE OF [place] CORONARY ARTERY W/O ANG PCTRS Qualifiers: (5) COPD (chronic obstructive pulmonary disease) Assessment/Plan: -pulmonary following Code(s): J44.9 - CHRONIC OBSTRUCTIVE PULMONARY DISEASE, UNSPECIFIED (6) Chronic pain Assessment/Plan: -controlled -continue ms contin with oxycodone prn Code(s): G89.29 - OTHER CHRONIC PAIN (7) Congestive heart failure (CHF) Assessment/Plan: -cardiology following -monitor -off of lasix Code(s): I50.9 - HEART FAILURE, UNSPECIFIED Qualifiers: Congestive heart failure type: systolic Congestive heart failure chronicity: chronic Qualified Code(s): I50.22 - Chronic systolic ( congestive) heart failure (8) Diabetes mellitus Assessment/Plan: -continue levemir -diabetic diet -SSI Code(s): E11.9 - TYPE 2 DIABETES MELLITUS WITHOUT COMPLICATIONS Qualifiers: Diabetes mellitus type: type 2 Diabetes mellitus complication status: with circulatory complication Diabetes mellitus complication detail: with peripheral angiopathy with gangrene Diabetes mellitus residential insulin use : with moth exterminator use Qualified Code(s): E11.52 - Type 2 diabetes mellitus with diabetic peripheral angiopathy with gangrene; Z79.4 - moth exterminator ( current) use of insulin (9) Diabetic foot ulcer Assessment/Plan: -healing -monitor Code(s): E11.621 - TYPE 2 DIABETES MELLITUS WITH FOOT ULCER L97.509 - NON-PRESSURE CHRONIC ULCER OTH PRT UNSP FOOT W UNSP SEVERITY (10) Hypertension Assessment/Plan: -continue lopressor and hydralazine Code(s): I10 - ESSENTIAL (PRIMARY) HYPERTENSION 31 minutes spent in critical care time
--- NOTE | 2017-05-20 12:23 | PN ---
Progress Note, Physician History of Present Illness: No CV complaints No chest pain or dyspnea - Current Medication List Current Medications: Active Medications Acetaminophen (Tylenol -) 650 mg PO Q4H PRN PRN Reason: FEVER OR PAIN Last Admin: 05/20/17 09:01 Dose: 650 mg Aclidinium [place] (Tudorza -) 1 puff IH BID [facility] Last Admin: 05/20/17 09:22 Dose: 1 inhaler Albuterol Sulfate (Ventolin 0.083% Nebulizer Soln -) 1 amp NEB QIDR [facility] Last Admin: 05/20/17 11:12 Dose: 1 amp Aspirin (Ecotrin -) 81 mg PO DAILY [facility] Last Admin: 05/20/17 09:01 Dose: 81 mg Atorvastatin Calcium (Lipitor -) 80 mg PO DAILY [facility] Last Admin: 05/20/17 09:01 Dose: 80 mg Budesonide/Formoterol Fumarate (Symbicort 160/4.5mcg -) 2 puff IH BID [facility] Last Admin: 05/20/17 09:21 Dose: 2 puff Clopidogrel Bisulfate (Plavix -) 75 mg PO DAILY [facility] Last Admin: 05/20/17 09:02 Dose: 75 mg Collagenase (Santyl -) 1 applic TP DAILY [facility] Last Admin: 05/20/17 09:03 Dose: 1 inch Docusate Sodium (Colace -) 100 mg PO BID [facility] Last Admin: 05/20/17 09:01 Dose: 100 mg Furosemide (Lasix Injection -) 40 mg IVPUSH ONCE ONE Stop: 05/20/17 10:05 Last Admin: 05/20/17 11:02 Dose: 40 mg Heparin Sodium (Porcine) (Heparin -) 5,000 unit IVPUSH PRN PRN PRN Reason: Heparin Last Admin: 05/20/17 00:29 Dose: 5,000 unit Heparin Sodium (Porcine) (Heparin -) 1,000 unit IVPUSH PRN PRN PRN Reason: Heparin Last Admin: 05/20/17 07:30 Dose: 1,000 unit Hydralazine HCl (Apresoline -) 10 mg PO TID [facility] Heparin Sodium (Porcine) 25, (000 unit/ Sodium Chloride) 500 mls @ 20 mls/hr IV TITR RADHA; 1,000 UNIT/HR PRN Reason: Protocol Last Titration: 05/20/17 07:30 Dose: 1,350 unit/hr Piperacillin Sod/Tazobactam Sod (Zosyn 3.375gm Ivpb (Pre-Docked)) 50 mls @ 100 mls/hr IVPB Q8H-IV RADHA PRN Reason: Protocol Last Admin: 05/20/17 09:00 Dose: 100 mls/hr Vancomycin HCl 1,250 mg/ (Dextrose) 250 mls @ 166.667 mls/hr IVPB DAILY [facility] PRN Reason: Protocol Last Admin: 05/20/17 09:59 Dose: 166.667 mls/hr Insulin Aspart (Novolog Vial Sliding Scale -) 1 vial SQ ACHS RADHA PRN Reason: Protocol Last Admin: 05/20/17 11:08 Dose: 6 units Insulin Detemir (Levemir Vial) 30 units SQ BIDAC [facility] Magnesium Oxide (Mag-Ox -) 400 mg PO BID [facility] Last Admin: 05/20/17 09:02 Dose: 400 mg Metoprolol Tartrate (Lopressor -) 50 mg PO TID [facility] Morphine Sulfate (Ms Contin -) 60 mg PO TID [facility] Last Admin: 05/20/17 06:16 Dose: 60 mg Non-Formulary Medication (Lansoprazole [Prevacid]) 30 mg PO DAILY [facility] Oxycodone HCl (Roxicodone -) 10 mg PO Q4H PRN PRN Reason: PAIN Polyethylene Glycol (Miralax (For Daily Use) -) 17 gm PO BID PRN PRN Reason: CONSTIPATION Zolpidem Tartrate (Ambien -) 5 mg PO HS PRN PRN Reason: sleep - Objective Vital Signs: Vital Signs Temperature 98.7 F 05/20/17 12:00 Pulse Rate 85 05/20/17 12:00 Respiratory Rate 24 05/20/17 12:00 Blood Pressure 129/79 05/20/17 12:00 O2 Sat by Pulse Oximetry (%) 97 05/20/17 12:02 Constitutional: Yes: No Distress, Calm Eyes: Yes: WNL, Conjunctiva Clear HENT: Yes: WNL, Atraumatic, Normocephalic Neck: Yes: WNL, Supple Cardiovascular: Yes: WNL, Regular Rate and Rhythm Respiratory: Yes: WNL, Regular Gastrointestinal: Yes: Normal Bowel Sounds Edema: No Labs: CBC, BMP 05/20/17 05:10 05/20/17 05:10 INR, PTT INR 1.20 (0.82-1.09) H 05/19/17 07:40 Assessment/Plan a/p: 67 year old male with a history of dm, ckd (1.5-2), CVA 10/2014, CAD s/p STEMI and multiple pci's, ischemic CM with systolic chf, COPD, extensive smoking history (now quit 12/2016) here with cough, fever. sepsis: -? PNA. + DM foot ulcer -however cause of ongoing high fevers unknown per ID (BCxs neg to date) -cont abx per crit care/ID NSTEMI: -known unrevascularized CAD as of last cath 2011 as outlined below -no cardio f/u and no known recent stress tests -here with PNA/sepsis -trop <0.02 on admit 05/17--today's 0.84, repeated at 3.98, now trending down 3.11 -ECGs c/w NSTEMI (<1mm ST elev in leads with prior Q waves is not diagnostic for transmural [place]). -on ASA and plavix from before (for recurrent CVAs)--continued here -started on UFH, PPT management per protocol. -echo with signif drop in prior LVEF and diffuse hypokinesis of all mid and apical segments--? left main or large wrap-around LAD plaque rupture, not typical description for Takotsubo's -this is not due to sepsis, given pt had ischemic type pain sx at time of event -given pt has been persistently febrile here, including to 102.8 this am, with source still unknown (being treated for DM foot ulcer as well as PNA, ID recommending CT abdomen given ongoing abd pain complatins) would not rec invasive mgmt strategy (cath) at present, if his ischemia can be medically controlled, as he will be high risk for infectious and other serious complications of procedure. -cont BB (change metopr tartrate qd to bid) -he is currently comfortable, no more abd pain (denies every having had cp, does not recall what prior sx's were at time of 2012 [place] nor does at bedside ) -add nitrates as needed if CP recurs -on atorva 40 at home, not being given here (wasn't on his admit med list), LFTs normal--start atorva 80 CAD: -s/p PCI (LIBBY) to 100% occl RPDA in 2004 ([place]) with patent prior RCA stents at that time, EF 50% then; -s/p anterior STEMI 2011 with [place] LIBBY x 2 to mid LAD then ([place]); residual dz then included 80% prox D1 (large vessel), 95% mD1; 70%mRCA (pre and post prior stents), 70% dCFX; (also 40% RPDA; 60% pCFX; 40% mCFX;) EF then 37% with AK of apex/AL lindsey and AK of IW; -has repeatedly refused regular cardio (used to see roddy suarez, stopped going , we see him in hospital every time but he declines f/u with us in office) -no known recent stress test -meds as described isch CMP/acute syst CHF exacerbation: -mild dec lvef on most recent echo, worsened now due to acute ischemia -vol status stable on lasix 80 qd as outpt -here with mild chf likely 2/2 pna, started lasix 40 iv qd -cont toprol, hydralazine. not on gabriel 2/2 ckd. -d/c IVF -had severe sob before which has resolved now, laying flat. given cxr remains congested (moderate pulm edema pattern on my review), will cont gentle iv diuresis--received lasix 40 ivp today--decide on further lasix in AM when review repeat cxr HTN: -bp controlled -cont current meds h/o CVA: -dx'd lacunar infarct 02/10 clinically then (slurred speech) -? acute CVA/TIA 11/13, seen by neuro then--ASA added to prior plavix at that time -same meds ckd: -cr freq fluctuates 1.5-2.9 on past admits here, most recently 1.3-1.5 in 03/15 -close to baseline range at present--trend labs
--- NOTE | 2017-05-20 20:13 | PN ---
Progress Note, Physician History of Present Illness: Events noted, labs/imaging reviewed Pt currently alert, weak, states unable to cough up sputum Denies abd pain/n/v/d, chills Currently afebrile - Current Medication List Current Medications: Active Medications Acetaminophen (Tylenol -) 650 mg PO Q4H PRN PRN Reason: FEVER OR PAIN Last Admin: 05/20/17 09:01 Dose: 650 mg Aclidinium [place] (Tudorza -) 1 puff IH BID [facility] Last Admin: 05/20/17 09:22 Dose: 1 inhaler Albuterol Sulfate (Ventolin 0.083% Nebulizer Soln -) 1 amp NEB QIDR [facility] Last Admin: 05/20/17 11:12 Dose: 1 amp Aspirin (Ecotrin -) 81 mg PO DAILY [facility] Last Admin: 05/20/17 09:01 Dose: 81 mg Atorvastatin Calcium (Lipitor -) 80 mg PO DAILY [facility] Last Admin: 05/20/17 09:01 Dose: 80 mg Budesonide/Formoterol Fumarate (Symbicort 160/4.5mcg -) 2 puff IH BID [facility] Last Admin: 05/20/17 09:21 Dose: 2 puff Clopidogrel Bisulfate (Plavix -) 75 mg PO DAILY [facility] Last Admin: 05/20/17 09:02 Dose: 75 mg Collagenase (Santyl -) 1 applic TP DAILY [facility] Last Admin: 05/20/17 09:03 Dose: 1 inch Docusate Sodium (Colace -) 100 mg PO BID [facility] Last Admin: 05/20/17 09:01 Dose: 100 mg Heparin Sodium (Porcine) (Heparin -) 5,000 unit IVPUSH PRN PRN PRN Reason: Heparin Last Admin: 05/20/17 00:29 Dose: 5,000 unit Heparin Sodium (Porcine) (Heparin -) 1,000 unit IVPUSH PRN PRN PRN Reason: Heparin Last Admin: 05/20/17 14:29 Dose: 1,000 unit Hydralazine HCl (Apresoline -) 10 mg PO TID [facility] Last Admin: 05/20/17 14:16 Dose: 10 mg Heparin Sodium (Porcine) 25, (000 unit/ Sodium Chloride) 500 mls @ 20 mls/hr IV TITR RADHA; 1,000 UNIT/HR PRN Reason: Protocol Last Titration: 05/20/17 14:29 Dose: 1,450 unit/hr Piperacillin Sod/Tazobactam Sod (Zosyn 3.375gm Ivpb (Pre-Docked)) 50 mls @ 100 mls/hr IVPB Q8H-IV [facility] PRN Reason: Protocol Last Admin: 05/20/17 17:49 Dose: 100 mls/hr Vancomycin HCl 1,250 mg/ (Dextrose) 250 mls @ 166.667 mls/hr IVPB DAILY [facility] PRN Reason: Protocol Last Admin: 05/20/17 09:59 Dose: 166.667 mls/hr Insulin Aspart (Novolog Vial Sliding Scale -) 1 vial SQ ACHS [facility] PRN Reason: Protocol Last Admin: 05/20/17 16:47 Dose: 4 units Insulin Detemir (Levemir Vial) 30 units SQ BIDAC [facility] Last Admin: 05/20/17 16:43 Dose: 30 units Magnesium Oxide (Mag-Ox -) 400 mg PO BID [facility] Last Admin: 05/20/17 09:02 Dose: 400 mg Metoprolol Tartrate (Lopressor -) 50 mg PO TID [facility] Last Admin: 05/20/17 14:15 Dose: 50 mg Morphine Sulfate (Ms Contin -) 60 mg PO TID [facility] Last Admin: 05/20/17 14:15 Dose: 60 mg Non-Formulary Medication (Lansoprazole [Prevacid]) 30 mg PO DAILY [facility] Oxycodone HCl (Roxicodone -) 10 mg PO Q4H PRN PRN Reason: PAIN Polyethylene Glycol (Miralax (For Daily Use) -) 17 gm PO BID PRN PRN Reason: CONSTIPATION Zolpidem Tartrate (Ambien -) 5 mg PO HS PRN PRN Reason: sleep - Objective Vital Signs: Vital Signs Temperature 98.7 F 05/20/17 18:00 Pulse Rate 80 05/20/17 18:00 Respiratory Rate 21 05/20/17 18:00 Blood Pressure 157/94 05/20/17 18:00 O2 Sat by Pulse Oximetry (%) 94 L 05/20/17 13:37 Constitutional: Yes: No Distress Respiratory: Yes: Rales (basilar) Genitourinary: Yes: Other (steinberg draining clear/yellow urine) Labs: CBC, BMP 05/20/17 05:10 05/20/17 05:10 INR, PTT INR 1.20 (0.82-1.09) H 05/19/17 07:40 Problem List - Problems (1) Pneumonia Code(s): J18.9 - PNEUMONIA, UNSPECIFIED ORGANISM Qualifiers: Pneumonia type: due to unspecified organism Laterality: right Lung location: unspecified part of lung Qualified Code(s): J18.9 - Pneumonia, unspecified organism (2) CKD (chronic kidney disease) Code(s): N18.9 - CHRONIC KIDNEY DISEASE, UNSPECIFIED Qualifiers: Chronic kidney disease stage: stage 2 (mild) Qualified Code(s): N18.2 - Chronic kidney disease, stage 2 (mild) (3) Congestive heart failure (CHF) Code(s): I50.9 - HEART FAILURE, UNSPECIFIED Qualifiers: Congestive heart failure type: systolic Congestive heart failure chronicity: chronic Qualified Code(s): I50.22 - Chronic systolic ( congestive) heart failure (4) Diabetes mellitus Code(s): E11.9 - TYPE 2 DIABETES MELLITUS WITHOUT COMPLICATIONS Qualifiers: Diabetes mellitus type: type 2 Diabetes mellitus complication status: with circulatory complication Diabetes mellitus complication detail: with peripheral angiopathy with gangrene Diabetes mellitus penitentiary insulin use : with moth exterminator use Qualified Code(s): E11.52 - Type 2 diabetes mellitus with diabetic peripheral angiopathy with gangrene; Z79.4 - rn long term care ( current) use of insulin (5) Leukocytosis Code(s): D72.829 - ELEVATED WHITE BLOOD CELL COUNT, UNSPECIFIED Qualifiers: Leukocytosis type: other Qualified Code(s): D72.828 - Other elevated white blood cell count Assessment/Plan - continue current antibiotics for now - currently afebrile, wbc elevated but stable at 19K - continue monitor wbc/temp trends - monitor renal function
[2017-05-20 21:46] LABS: TROPONIN I 1.74 ng/ml (0.00-0.05)
[2017-05-21] MEDS ORDERED: ONDANSETRON 4 MG/2 ML VIAL IVPUSH STA (00:27)
[2017-05-21] MEDS ORDERED: ONDANSETRON 4 MG/2 ML VIAL IVPUSH PRN ×2 (00:27→11:21)
[2017-05-21] MEDS: ALBUTEROL SO4 0.083% IH SOL 2.5 MG/3 ML VIAL.NEB. NEB SCH ×5 (00:40→23:00)
[2017-05-21] MEDS: PIPERACILLIN/TAZOB 3.375 GM 50 ML IVPB SCH ×3 (01:46→17:10)
[2017-05-21 06:07] LABS: MCH 27.5 pg (25.7-33.7); MCHC 31.5 g/dl (32.0-35.9); MEAN CELL VOLUME 87.3 fl (80-96); MEAN PLT VOLUME 8.8 fl (7.5-11.1); PLATELET COUNT 291 K/MM3 (134-434); RDW 16.5 % (11.9-15.9); WHITE BLOOD COUNT 16.3 K/mm3 (4.0-10.0)
[2017-05-21] MEDS ORDERED: PT OWN MED DRAWER 7, Y5N ONE ×4 (06:21→21:53)
[2017-05-21] MEDS: morphine SO4 SUSTAINED ACTING 30 MG TABLET.SA PO SCH ×3 (06:24→21:25)
[2017-05-21] MEDS: hydrALAZINE HCL 10 MG TABLET PO SCH ×3 (06:25→21:26)
[2017-05-21] MEDS: METOPROLOL TARTRATE 50 MG TABLET (FP) PO SCH ×3 (06:25→21:26)
[2017-05-21] MEDS: INSULIN DETEMIR 100 UNITS/ML MDV SQ SCH ×2 (06:28→16:24)
[2017-05-21] MEDS: INSULIN SLIDING SCALE (NOVOLOG) 1 VIAL SQ SCH ×4 (06:40→21:48)
[2017-05-21 06:47] LABS: ALBUMIN 2.6 g/dl (3.4-5.0); ANION GAP 6 (8-16); BILIRUBIN,TOTAL 0.5 mg/dL (0.2-1.0); CALCIUM 8.3 mg/dL (8.5-10.1); CO2 34 mmol/L (21-32); CREATININE 1.3 mg/dL (0.7-1.3); GLUCOSE,RANDOM 155 mg/dL (74-106); SGOT/AST 25 U/L (15-37); SGPT/ALT 31 U/L (12-78); TOT PROT 5.8 g/dl (6.4-8.2)
[2017-05-21 06:48] LABS: ALK PHOS 81 U/L (45-117)
[2017-05-21] MEDS: HEPARIN NA (PORCINE) 5,000 UNITS/ML 1ML VIAL IVPUSH PRN (07:04)
--- NOTE | 2017-05-21 10:10 | PN ---
Progress Note (short form) - Note Progress Note: Patient seen and examined in the ICU. Awake and alert. Noted troponin down trending last night. No CP. Some dry cough. SOB mildly better. CXR : No gross change in bilateral vascular congestion Intake & Output 05/18/17 05/19/17 05/20/17 05/21/17 23:59 23:59 23:59 23:59 Intake Total 1200 1210 3169 360 Output Total 200 1100 3550 300 Balance 1000 110 -381 60 Weight 207 lb 3.752 oz 202 lb 9.677 oz Last Vital Signs Temp Pulse Resp BP Pulse Ox 97.5 F L 78 20 150/86 96 05/21/17 06:00 05/21/17 08:00 05/21/17 08:00 05/21/17 08:00 05/21/17 09:00 Active Medications Acetaminophen (Tylenol -) 650 mg PO Q4H PRN PRN Reason: FEVER OR PAIN Last Admin: 05/20/17 09:01 Dose: 650 mg Aclidinium [place] (Tudorza -) 1 puff IH BID [facility] Last Admin: 05/20/17 22:22 Dose: 1 inhaler Albuterol Sulfate (Ventolin 0.083% Nebulizer Soln -) 1 amp NEB QIDR [facility] Last Admin: 05/21/17 05:42 Dose: 1 amp Aspirin (Ecotrin -) 81 mg PO DAILY [facility] Last Admin: 05/20/17 09:01 Dose: 81 mg Atorvastatin Calcium (Lipitor -) 80 mg PO DAILY [facility] Last Admin: 05/20/17 09:01 Dose: 80 mg Budesonide/Formoterol Fumarate (Symbicort 160/4.5mcg -) 2 puff IH BID [facility] Last Admin: 05/20/17 22:22 Dose: 2 puff Clopidogrel Bisulfate (Plavix -) 75 mg PO DAILY [facility] Last Admin: 05/20/17 09:02 Dose: 75 mg Collagenase (Santyl -) 1 applic TP DAILY [facility] Last Admin: 05/20/17 09:03 Dose: 1 inch Docusate Sodium (Colace -) 100 mg PO BID [facility] Last Admin: 05/20/17 22:20 Dose: 100 mg Furosemide (Lasix -) 40 mg PO BID@0600,1400 [facility] Heparin Sodium (Porcine) (Heparin -) 5,000 unit IVPUSH PRN PRN PRN Reason: Heparin Last Admin: 05/20/17 00:29 Dose: 5,000 unit Heparin Sodium (Porcine) (Heparin -) 1,000 unit IVPUSH PRN PRN PRN Reason: Heparin Last Admin: 05/21/17 07:04 Dose: 1,000 unit Hydralazine HCl (Apresoline -) 10 mg PO TID [facility] Last Admin: 05/21/17 06:25 Dose: 10 mg Heparin Sodium (Porcine) 25, (000 unit/ Sodium Chloride) 500 mls @ 20 mls/hr IV TITR RADHA; 1,000 UNIT/HR PRN Reason: Protocol Last Titration: 05/21/17 07:05 Dose: 1,650 unit/hr Piperacillin Sod/Tazobactam Sod (Zosyn 3.375gm Ivpb (Pre-Docked)) 50 mls @ 100 mls/hr IVPB Q8H-IV [facility] PRN Reason: Protocol Last Admin: 05/21/17 01:46 Dose: 100 mls/hr Vancomycin HCl 1,250 mg/ (Dextrose) 250 mls @ 166.667 mls/hr IVPB DAILY [facility] PRN Reason: Protocol Last Admin: 05/20/17 09:59 Dose: 166.667 mls/hr Insulin Aspart (Novolog Vial Sliding Scale -) 1 vial SQ ACHS [facility] PRN Reason: Protocol Last Admin: 05/21/17 06:40 Dose: Not Given Insulin Detemir (Levemir Vial) 30 units SQ BIDAC [facility] Last Admin: 05/21/17 06:28 Dose: 30 units Magnesium Oxide (Mag-Ox -) 400 mg PO BID [facility] Last Admin: 05/20/17 22:20 Dose: 400 mg Metoprolol Tartrate (Lopressor -) 50 mg PO TID [facility] Last Admin: 05/21/17 06:25 Dose: 50 mg Morphine Sulfate (Ms Contin -) 60 mg PO TID [facility] Last Admin: 05/21/17 06:24 Dose: 60 mg Non-Formulary Medication (Lansoprazole [Prevacid]) 30 mg PO DAILY [facility] Ondansetron HCl (Zofran Injection) 4 mg IVPUSH Q6H PRN PRN Reason: NAUSEA AND/OR VOMITING Oxycodone HCl (Roxicodone -) 10 mg PO Q4H PRN PRN Reason: PAIN Polyethylene Glycol (Miralax (For Daily Use) -) 17 gm PO BID PRN PRN Reason: CONSTIPATION Zolpidem Tartrate (Ambien -) 5 mg PO HS PRN PRN Reason: sleep Last Admin: 05/21/17 02:57 Dose: 5 mg Constitutional: Yes: Awake and alert, mildly tachypneic at rest Cardiovascular: Yes: Regular Rate and Rhythm. No: Gallop, Murmur, Rub Respiratory: Yes: Bibasilar rhonchi/rales Gastrointestinal: Yes: Normal Bowel Sounds, Soft. No: Distention, Tenderness Extremities: Yes: chronic changes Edema: No Labs: Laboratory Results - last 24 hr 05/20/17 05/20/17 05/20/17 11:07 13:40 16:47 WBC RBC Hgb Hct MCV MCH MCHC RDW Plt Count MPV PTT (Actin FS) 45.2 H Sodium Potassium Chloride Carbon Dioxide Anion Gap BUN Creatinine Creat Clearance w eGFR POC Glucometer 303.93745 253.47170 Random Glucose Calcium Total Bilirubin AST ALT Alkaline Phosphatase Creatine Kinase Troponin I Total Protein Albumin 05/20/17 05/20/17 05/20/17 19:45 20:50 22:27 WBC RBC Hgb Hct MCV MCH MCHC RDW Plt Count MPV PTT (Actin FS) 47.2 H Sodium Potassium Chloride Carbon Dioxide Anion Gap BUN Creatinine Creat Clearance w eGFR POC Glucometer 252.99396 Random Glucose Calcium Total Bilirubin AST ALT Alkaline Phosphatase Creatine Kinase 33 L Troponin I 1.74 H* D Total Protein Albumin 05/21/17 05/21/17 05/21/17 05:10 05:10 05:10 WBC 16.3 H RBC 3.63 L Hgb 10.0 L Hct 31.7 L MCV 87.3 MCH 27.5 MCHC 31.5 L RDW 16.5 H Plt Count 291 MPV 8.8 PTT (Actin FS) 45.6 H Sodium 141 Potassium 3.7 Chloride 101 Carbon Dioxide 34 H D Anion Gap 6 L BUN 39 H Creatinine 1.3 Creat Clearance w eGFR 54.73 POC Glucometer Random Glucose 155 H Calcium 8.3 L Total Bilirubin 0.5 D AST 25 ALT 31 Alkaline Phosphatase 81 Creatine Kinase Troponin I Total Protein 5.8 L Albumin 2.6 L Problem List - Problems (1) Pneumonia Code(s): J18.9 - PNEUMONIA, UNSPECIFIED ORGANISM Qualifiers: Pneumonia type: due to unspecified organism Laterality: right Lung location: upper lobe of lung Qualified Code(s): J18.1 - Lobar pneumonia, unspecified organism (2) Sepsis Code(s): A41.9 - SEPSIS, UNSPECIFIED ORGANISM (3) Renal failure (ARF), acute on chronic Code(s): N17.9 - ACUTE KIDNEY FAILURE, UNSPECIFIED N18.9 - CHRONIC KIDNEY DISEASE, UNSPECIFIED (4) CAD (coronary artery disease) Code(s): I25.10 - ATHSCL HEART DISEASE OF [place] CORONARY ARTERY W/O ANG PCTRS Qualifiers: (5) COPD (chronic obstructive pulmonary disease) Code(s): J44.9 - CHRONIC OBSTRUCTIVE PULMONARY DISEASE, UNSPECIFIED (6) Chronic pain Code(s): G89.29 - OTHER CHRONIC PAIN (7) Congestive heart failure (CHF) Code(s): I50.9 - HEART FAILURE, UNSPECIFIED Qualifiers: Congestive heart failure type: systolic Congestive heart failure chronicity: chronic Qualified Code(s): I50.22 - Chronic systolic ( congestive) heart failure (8) Diabetes mellitus Code(s): E11.9 - TYPE 2 DIABETES MELLITUS WITHOUT COMPLICATIONS Qualifiers: Diabetes mellitus type: type 2 Diabetes mellitus complication status: with circulatory complication Diabetes mellitus complication detail: with peripheral angiopathy with gangrene Diabetes mellitus intermodal customer service insulin use : with intermodal customer service use Qualified Code(s): E11.52 - Type 2 diabetes mellitus with diabetic peripheral angiopathy with gangrene; Z79.4 - residential ( current) use of insulin (9) Diabetic foot ulcer Code(s): E11.621 - TYPE 2 DIABETES MELLITUS WITH FOOT ULCER L97.509 - NON-PRESSURE CHRONIC ULCER OTH PRT UNSP FOOT W UNSP SEVERITY (10) Hypertension Code(s): I10 - ESSENTIAL (PRIMARY) HYPERTENSION Restart Lasix ABX per ID O2 as needed to maintain saturation / NIPPV to decrease WOB BD TX Monitor off systemic steroids for now AC Titrate BB / Hydralazine as BP still elevated Pain control Daily assessment for diuretics Glycemic control Local wound care Cardiac Telemetry monitoring Dr Perez Critical Care Total Critical Care Time (in minutes): 35 Critical Care Statement: The care of this patient involved high complexity decision making to prevent further life threatening deterioration of the patient 's condition and/or to evalute & treat vital organ system(s) failure or risk of failure.
[2017-05-21] MEDS: ASPIRIN COATED 81 MG TABLET.EC PO SCH (10:22)
[2017-05-21] MEDS: ATORVASTATIN CA 80 MG TABLET (FP) PO SCH (10:22)
[2017-05-21] MEDS: DOCUSATE SODIUM 100 MG CAPSULE (FP) PO SCH ×2 (10:23→21:26)
[2017-05-21] MEDS: CLOPIDOGREL BISULFATE 75 MG TABLET (FP) PO SCH (10:23)
--- NOTE | 2017-05-21 10:23 | PN ---
Progress Note, Physician Chief Complaint: Mr Scott says he is feeling better. Currently no cp, sob, n/v but says the shortness of breath comes and goes. - Current Medication List Current Medications: Active Medications Acetaminophen (Tylenol -) 650 mg PO Q4H PRN PRN Reason: FEVER OR PAIN Last Admin: 05/20/17 09:01 Dose: 650 mg Aclidinium [place] (Tudorza -) 1 puff IH BID [facility] Last Admin: 05/20/17 22:22 Dose: 1 inhaler Albuterol Sulfate (Ventolin 0.083% Nebulizer Soln -) 1 amp NEB QIDR [facility] Last Admin: 05/21/17 05:42 Dose: 1 amp Aspirin (Ecotrin -) 81 mg PO DAILY [facility] Last Admin: 05/20/17 09:01 Dose: 81 mg Atorvastatin Calcium (Lipitor -) 80 mg PO DAILY [facility] Last Admin: 05/20/17 09:01 Dose: 80 mg Budesonide/Formoterol Fumarate (Symbicort 160/4.5mcg -) 2 puff IH BID [facility] Last Admin: 05/20/17 22:22 Dose: 2 puff Clopidogrel Bisulfate (Plavix -) 75 mg PO DAILY [facility] Last Admin: 05/20/17 09:02 Dose: 75 mg Collagenase (Santyl -) 1 applic TP DAILY [facility] Last Admin: 05/20/17 09:03 Dose: 1 inch Docusate Sodium (Colace -) 100 mg PO BID [facility] Last Admin: 05/20/17 22:20 Dose: 100 mg Furosemide (Lasix -) 40 mg PO BID@0600,1400 [facility] Heparin Sodium (Porcine) (Heparin -) 5,000 unit IVPUSH PRN PRN PRN Reason: Heparin Last Admin: 05/20/17 00:29 Dose: 5,000 unit Heparin Sodium (Porcine) (Heparin -) 1,000 unit IVPUSH PRN PRN PRN Reason: Heparin Last Admin: 05/21/17 07:04 Dose: 1,000 unit Hydralazine HCl (Apresoline -) 10 mg PO TID [facility] Last Admin: 05/21/17 06:25 Dose: 10 mg Heparin Sodium (Porcine) 25, (000 unit/ Sodium Chloride) 500 mls @ 20 mls/hr IV TITR RADHA; 1,000 UNIT/HR PRN Reason: Protocol Last Titration: 05/21/17 07:05 Dose: 1,650 unit/hr Piperacillin Sod/Tazobactam Sod (Zosyn 3.375gm Ivpb (Pre-Docked)) 50 mls @ 100 mls/hr IVPB Q8H-IV [facility] PRN Reason: Protocol Last Admin: 05/21/17 01:46 Dose: 100 mls/hr Vancomycin HCl 1,250 mg/ (Dextrose) 250 mls @ 166.667 mls/hr IVPB DAILY [facility] PRN Reason: Protocol Last Admin: 05/20/17 09:59 Dose: 166.667 mls/hr Insulin Aspart (Novolog Vial Sliding Scale -) 1 vial SQ ACHS [facility] PRN Reason: Protocol Last Admin: 05/21/17 06:40 Dose: Not Given Insulin Detemir (Levemir Vial) 30 units SQ BIDAC [facility] Last Admin: 05/21/17 06:28 Dose: 30 units Magnesium Oxide (Mag-Ox -) 400 mg PO BID [facility] Last Admin: 05/20/17 22:20 Dose: 400 mg Metoprolol Tartrate (Lopressor -) 50 mg PO TID [facility] Last Admin: 05/21/17 06:25 Dose: 50 mg Morphine Sulfate (Ms Contin -) 60 mg PO TID [facility] Last Admin: 05/21/17 06:24 Dose: 60 mg Non-Formulary Medication (Lansoprazole [Prevacid]) 30 mg PO DAILY [facility] Ondansetron HCl (Zofran Injection) 4 mg IVPUSH Q6H PRN PRN Reason: NAUSEA AND/OR VOMITING Oxycodone HCl (Roxicodone -) 10 mg PO Q4H PRN PRN Reason: PAIN Polyethylene Glycol (Miralax (For Daily Use) -) 17 gm PO BID PRN PRN Reason: CONSTIPATION Zolpidem Tartrate (Ambien -) 5 mg PO HS PRN PRN Reason: sleep Last Admin: 05/21/17 02:57 Dose: 5 mg - Objective Vital Signs: Vital Signs Temperature 97.5 F L 05/21/17 06:00 Pulse Rate 78 05/21/17 08:00 Respiratory Rate 20 05/21/17 08:00 Blood Pressure 150/86 05/21/17 08:00 O2 Sat by Pulse Oximetry (%) 96 05/21/17 09:00 Constitutional: Yes: No Distress, Calm, Obese Cardiovascular: Yes: Regular Rate and Rhythm. No: Gallop, Murmur, Rub Respiratory: Yes: Regular, CTA Bilaterally, On Nasal O2. No: Rales, Rhonchi, Wheezes Gastrointestinal: Yes: Normal Bowel Sounds, Soft. No: Distention, Tenderness Extremities: Yes: WNL Edema: No Labs: CBC, BMP 05/21/17 05:10 05/21/17 05:10 INR, PTT INR 1.20 (0.82-1.09) H 05/19/17 07:40 Problem List - Problems (1) Pneumonia Code(s): J18.9 - PNEUMONIA, UNSPECIFIED ORGANISM Qualifiers: Pneumonia type: due to unspecified organism Laterality: right Lung location: unspecified part of lung Qualified Code(s): J18.9 - Pneumonia, unspecified organism (2) Sepsis Code(s): A41.9 - SEPSIS, UNSPECIFIED ORGANISM (3) Renal failure (ARF), acute on chronic Code(s): N17.9 - ACUTE KIDNEY FAILURE, UNSPECIFIED N18.9 - CHRONIC KIDNEY DISEASE, UNSPECIFIED (4) CAD (coronary artery disease) Code(s): I25.10 - ATHSCL HEART DISEASE OF [place] CORONARY ARTERY W/O ANG PCTRS Qualifiers: (5) COPD (chronic obstructive pulmonary disease) Code(s): J44.9 - CHRONIC OBSTRUCTIVE PULMONARY DISEASE, UNSPECIFIED (6) Chronic pain Code(s): G89.29 - OTHER CHRONIC PAIN (7) Congestive heart failure (CHF) Code(s): I50.9 - HEART FAILURE, UNSPECIFIED Qualifiers: Congestive heart failure type: systolic Congestive heart failure chronicity: chronic Qualified Code(s): I50.22 - Chronic systolic ( congestive) heart failure (8) Diabetes mellitus Code(s): E11.9 - TYPE 2 DIABETES MELLITUS WITHOUT COMPLICATIONS Qualifiers: Diabetes mellitus type: type 2 Diabetes mellitus complication status: with circulatory complication Diabetes mellitus complication detail: with peripheral angiopathy with gangrene Diabetes mellitus long-term insulin use : with manager terminal use Qualified Code(s): E11.52 - Type 2 diabetes mellitus with diabetic peripheral angiopathy with gangrene; Z79.4 - care home ( current) use of insulin (9) Diabetic foot ulcer Code(s): E11.621 - TYPE 2 DIABETES MELLITUS WITH FOOT ULCER L97.509 - NON-PRESSURE CHRONIC ULCER OTH PRT UNSP FOOT W UNSP SEVERITY (10) Hypertension Code(s): I10 - ESSENTIAL (PRIMARY) HYPERTENSION Assessment/Plan (1) Pneumonia Assessment/Plan: -seen on CT scan -continue vancomycin and zosyn -ID following Code(s): J18.9 - PNEUMONIA, UNSPECIFIED ORGANISM Qualifiers: Pneumonia type: due to unspecified organism Laterality: right Lung location: upper lobe of lung Qualified Code(s): J18.1 - Lobar pneumonia, unspecified organism (2) Sepsis Assessment/Plan: -improving -continue to monitor leukocytosis Code(s): A41.9 - SEPSIS, UNSPECIFIED ORGANISM (3) Renal failure (ARF), acute on chronic Assessment/Plan: -at baseline -monitor Code(s): N17.9 - ACUTE KIDNEY FAILURE, UNSPECIFIED N18.9 - CHRONIC KIDNEY DISEASE, UNSPECIFIED (4) CAD (coronary artery disease) Assessment/Plan: -NSTEMI -cardiology following, medically manage Code(s): I25.10 - ATHSCL HEART DISEASE OF [place] CORONARY ARTERY W/O ANG PCTRS Qualifiers: (5) COPD (chronic obstructive pulmonary disease) Assessment/Plan: -pulmonary following Code(s): J44.9 - CHRONIC OBSTRUCTIVE PULMONARY DISEASE, UNSPECIFIED (6) Chronic pain Assessment/Plan: -controlled -continue ms contin with oxycodone prn Code(s): G89.29 - OTHER CHRONIC PAIN (7) Congestive heart failure (CHF) Assessment/Plan: -cardiology following -IVF stopped -lasix restarted Code(s): I50.9 - HEART FAILURE, UNSPECIFIED Qualifiers: Congestive heart failure type: systolic Congestive heart failure chronicity: chronic Qualified Code(s): I50.22 - Chronic systolic ( congestive) heart failure (8) Diabetes mellitus Assessment/Plan: -continue levemir -diabetic diet -SSI Code(s): E11.9 - TYPE 2 DIABETES MELLITUS WITHOUT COMPLICATIONS Qualifiers: Diabetes mellitus type: type 2 Diabetes mellitus complication status: with circulatory complication Diabetes mellitus complication detail: with peripheral angiopathy with gangrene Diabetes mellitus long-term insulin use : with long-term use Qualified Code(s): E11.52 - Type 2 diabetes mellitus with diabetic peripheral angiopathy with gangrene; 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
[2017-05-21] MEDS: COLLAGENASE CLOSTRIDIUM HIST. 30 GRAMS TUBE TP SCH (10:24)
[2017-05-21] MEDS: BUDESONIDE/FORMETEROL FUMARATE 160/4.5 mcg INHALER IH SCH ×2 (10:25→21:28)
[2017-05-21] MEDS: ACLIDINIUM BROMIDE 400 MCG/INH AERO.POWD IH SCH ×2 (10:25→21:29)
[2017-05-21] MEDS: MAGNESIUM OXIDE 400 MG TABLET (FP) PO SCH ×2 (10:32→21:26)
[2017-05-21] MEDS ORDERED: POLYETHYLENE GLYCOL 3350 119 GM BTL PO PRN (11:21)
[2017-05-21] MEDS ORDERED: HEPARIN NA (PORCINE) 5,000 UNITS/ML 1ML VIAL IVPUSH PRN ×4 (11:21)
[2017-05-21] MEDS: VANCOMYCIN 1,250 MG in DEXTROSE 5%-WATER - 250 ML IVPB SCH (11:47)
--- NOTE | 2017-05-21 12:39 | PN ---
Progress Note, Physician History of Present Illness: No events No complaints of chest pain or abdominal pain Has some anxiety this AM - Current Medication List Current Medications: Active Medications Acetaminophen (Tylenol -) 650 mg PO Q4H PRN PRN Reason: FEVER OR PAIN Aclidinium [place] (Tudorza -) 1 puff IH BID [facility] Albuterol Sulfate (Ventolin 0.083% Nebulizer Soln -) 1 amp NEB QIDR [facility] Last Admin: 05/21/17 11:49 Dose: 1 amp Aspirin (Ecotrin -) 81 mg PO DAILY [facility] Atorvastatin Calcium (Lipitor -) 80 mg PO DAILY [facility] Budesonide/Formoterol Fumarate (Symbicort 160/4.5mcg -) 2 puff IH BID [facility] Clopidogrel Bisulfate (Plavix -) 75 mg PO DAILY [facility] Collagenase (Santyl -) 1 applic TP DAILY [facility] Docusate Sodium (Colace -) 100 mg PO BID [facility] Furosemide (Lasix -) 40 mg PO BID@0600,1400 [facility] Heparin Sodium (Porcine) (Heparin -) 5,000 unit IVPUSH PRN PRN PRN Reason: Heparin Heparin Sodium (Porcine) (Heparin -) 1,000 unit IVPUSH PRN PRN PRN Reason: Heparin Hydralazine HCl (Apresoline -) 10 mg PO TID [facility] Heparin Sodium (Porcine) 25, (000 unit/ Sodium Chloride) 500 mls @ 20 mls/hr IV TITR [facility]; 1,000 UNIT/HR PRN Reason: Protocol Vancomycin HCl 1,250 mg/ (Dextrose) 250 mls @ 166.667 mls/hr IVPB DAILY [facility] PRN Reason: Protocol Piperacillin Sod/Tazobactam Sod (Zosyn 3.375gm Ivpb (Pre-Docked)) 50 mls @ 100 mls/hr IVPB Q8H-IV [facility] PRN Reason: Protocol Insulin Aspart (Novolog Vial Sliding Scale -) 1 vial SQ ACHS [facility] PRN Reason: Protocol Insulin Detemir (Levemir Vial) 30 units SQ BIDAC [facility] Magnesium Oxide (Mag-Ox -) 400 mg PO BID [facility] Metoprolol Tartrate (Lopressor -) 50 mg PO TID [facility] Morphine Sulfate (Ms Contin -) 60 mg PO TID [facility] Non-Formulary Medication (Lansoprazole [Prevacid]) 30 mg PO DAILY [facility] Ondansetron HCl (Zofran Injection) 4 mg IVPUSH Q6H PRN PRN Reason: NAUSEA AND/OR VOMITING Oxycodone HCl (Roxicodone -) 10 mg PO Q4H PRN PRN Reason: PAIN Polyethylene Glycol (Miralax (For Daily Use) -) 17 gm PO BID PRN PRN Reason: CONSTIPATION Zolpidem Tartrate (Ambien -) 5 mg PO HS PRN PRN Reason: sleep - Objective Vital Signs: Vital Signs Temperature 98.5 F 05/21/17 10:05 Pulse Rate 90 05/21/17 12:00 Respiratory Rate 22 05/21/17 12:00 Blood Pressure 156/90 05/21/17 12:00 O2 Sat by Pulse Oximetry (%) 96 05/21/17 11:30 Constitutional: Yes: Well Nourished, No Distress Eyes: Yes: WNL HENT: Yes: WNL Neck: Yes: WNL Cardiovascular: Yes: WNL, Regular Rate and Rhythm Respiratory: Yes: WNL, Rhonchi Gastrointestinal: Yes: WNL, Normal Bowel Sounds Musculoskeletal: Yes: WNL Edema: No Labs: CBC, BMP 05/21/17 05:10 05/21/17 05:10 INR, PTT INR 1.20 (0.82-1.09) H 05/19/17 07:40 Assessment/Plan a/p: 67 year old male with a history of dm, ckd (1.5-2), CVA 10/2014, CAD s/p STEMI and multiple pci's, ischemic CM with systolic chf, COPD, extensive smoking history (now quit 12/2016) here with cough, fever. sepsis: -? PNA. + DM foot ulcer -however cause of ongoing high fevers unknown per ID (BCxs neg to date) -cont abx per crit care/ID NSTEMI: -known unrevascularized CAD as of last cath 2011 as outlined below -no cardio f/u and no known recent stress tests -here with PNA/sepsis -trop <0.02 on admit 05/17--today's 0.84, repeated at 3.98, now trending down 1.74 -ECGs c/w NSTEMI (<1mm ST elev in leads with prior Q waves is not diagnostic for transmural SD). -on ASA and plavix from before (for recurrent CVAs)--continued here -UFH, PPT management per protocol. -echo with signif drop in prior LVEF and diffuse hypokinesis of all mid and apical segments -cont BB (change metopr tartrate qd to bid) -he is currently comfortable, no more abd pain (denies every having had cp, does not recall what prior sx's were at time of 2011 SD nor does at bedside ) -add nitrates as needed if CP recurs -on atorva 40 at home, not being given here (wasn't on his admit med list), LFTs normal now - will start Atorva 40mg daily CAD: -s/p PCI (LIBBY) to 100% occl RPDA in 2004 ([facility]) with patent prior RCA stents at that time, EF 50% then; -s/p anterior STEMI 2011 with [place] LIBBY x 2 to mid LAD then (tenisha); residual dz then included 80% prox D1 (large vessel), 95% mD1; 70%mRCA (pre and post prior stents), 70% dCFX; (also 40% RPDA; 60% pCFX; 40% mCFX;) EF then 37% with AK of apex/AL lindsey and AK of IW; -meds as described isch CMP/acute syst CHF exacerbation: -mild dec lvef on most recent echo, worsened now due to acute ischemia -vol status stable on lasix 80 qd as outpt -here with mild chf likely 2/2 pna, started lasix 40 iv qd HTN: -bp controlled -cont current meds h/o CVA: -dx'd lacunar infarct 02/10 clinically then (slurred speech) -? acute CVA/TIA 11/13, seen by neuro then--ASA added to prior plavix at that time -same meds ckd: -cr freq fluctuates 1.5-2.9 on past admits here, most recently 1.3-1.5 in 03/15 -close to baseline range at present--trend labs
[2017-05-21] MEDS: FUROSEMIDE 40 MG TABLET (FP) PO SCH (13:50)
[2017-05-21] MEDS ORDERED: FUROSEMIDE 40 MG TABLET (FP) PO SCH (14:00)
[2017-05-21] MEDS ORDERED: HEMOQUE TEST 1 EACH EACH ONE (16:18)
[2017-05-21] MEDS: oxyCODONE HCL 5 MG TABLET PO PRN (16:33)
--- NOTE | 2017-05-21 19:34 | PN ---
Progress Note, Physician History of Present Illness: Pt is alert, without acute distress Denies current shortness of breath, cough but unable to bring up sputum Has been afebrile - Current Medication List Current Medications: Active Medications Acetaminophen (Tylenol -) 650 mg PO Q4H PRN PRN Reason: FEVER OR PAIN Aclidinium [place] (Tudorza -) 1 puff IH BID [facility] Albuterol Sulfate (Ventolin 0.083% Nebulizer Soln -) 1 amp NEB QIDR [facility] Last Admin: 05/21/17 17:04 Dose: 1 amp Aspirin (Ecotrin -) 81 mg PO DAILY [facility] Atorvastatin Calcium (Lipitor -) 80 mg PO DAILY [facility] Budesonide/Formoterol Fumarate (Symbicort 160/4.5mcg -) 2 puff IH BID [facility] Clopidogrel Bisulfate (Plavix -) 75 mg PO DAILY [facility] Collagenase (Santyl -) 1 applic TP DAILY [facility] Docusate Sodium (Colace -) 100 mg PO BID [facility] Furosemide (Lasix -) 40 mg PO BID@0600,1400 [facility] Last Admin: 05/21/17 13:50 Dose: 40 mg Heparin Sodium (Porcine) (Heparin -) 5,000 unit IVPUSH PRN PRN PRN Reason: Heparin Heparin Sodium (Porcine) (Heparin -) 1,000 unit IVPUSH PRN PRN PRN Reason: Heparin Hydralazine HCl (Apresoline -) 10 mg PO TID [facility] Last Admin: 05/21/17 13:50 Dose: 10 mg Heparin Sodium (Porcine) 25, (000 unit/ Sodium Chloride) 500 mls @ 20 mls/hr IV TITR [facility]; 1,000 UNIT/HR PRN Reason: Protocol Vancomycin HCl 1,250 mg/ (Dextrose) 250 mls @ 166.667 mls/hr IVPB DAILY [facility] PRN Reason: Protocol Piperacillin Sod/Tazobactam Sod (Zosyn 3.375gm Ivpb (Pre-Docked)) 50 mls @ 100 mls/hr IVPB Q8H-IV [facility] PRN Reason: Protocol Last Admin: 05/21/17 17:10 Dose: 100 mls/hr Insulin Aspart (Novolog Vial Sliding Scale -) 1 vial SQ ACHS [facility] PRN Reason: Protocol Last Admin: 05/21/17 16:24 Dose: 4 units Insulin Detemir (Levemir Vial) 30 units SQ BIDAC [facility] Last Admin: 05/21/17 16:24 Dose: 30 units Magnesium Oxide (Mag-Ox -) 400 mg PO BID [facility] Metoprolol Tartrate (Lopressor -) 50 mg PO TID [facility] Last Admin: 05/21/17 13:50 Dose: 50 mg Morphine Sulfate (Ms Contin -) 60 mg PO TID [facility] Last Admin: 05/21/17 13:49 Dose: 60 mg Non-Formulary Medication (Lansoprazole [Prevacid]) 30 mg PO DAILY [facility] Ondansetron HCl (Zofran Injection) 4 mg IVPUSH Q6H PRN PRN Reason: NAUSEA AND/OR VOMITING Oxycodone HCl (Roxicodone -) 10 mg PO Q4H PRN PRN Reason: PAIN Last Admin: 05/21/17 16:33 Dose: 10 mg Polyethylene Glycol (Miralax (For Daily Use) -) 17 gm PO BID PRN PRN Reason: CONSTIPATION Zolpidem Tartrate (Ambien -) 5 mg PO HS PRN PRN Reason: sleep - Objective Vital Signs: Vital Signs Temperature 98 F 05/21/17 16:00 Pulse Rate 62 05/21/17 18:00 Respiratory Rate 20 05/21/17 18:00 Blood Pressure 165/80 05/21/17 18:00 O2 Sat by Pulse Oximetry (%) 96 05/21/17 11:30 Constitutional: Yes: No Distress Cardiovascular: Yes: Regular Rate and Rhythm Respiratory: Yes: Diminished (in bases) Gastrointestinal: Yes: Normal Bowel Sounds, Soft Integumentary: Yes: Other (Lt 2nd toe ulcer dry) Labs: CBC, BMP 05/21/17 05:10 05/21/17 05:10 INR, PTT INR 1.20 (0.82-1.09) H 05/19/17 07:40 - ....Imaging Chest X-ray: Report Reviewed Problem List - Problems (1) Pneumonia Code(s): J18.9 - PNEUMONIA, UNSPECIFIED ORGANISM Qualifiers: Pneumonia type: due to unspecified organism Laterality: right Lung location: unspecified part of lung Qualified Code(s): J18.9 - Pneumonia, unspecified organism (2) CKD (chronic kidney disease) Code(s): N18.9 - CHRONIC KIDNEY DISEASE, UNSPECIFIED Qualifiers: Chronic kidney disease stage: stage 2 (mild) Qualified Code(s): N18.2 - Chronic kidney disease, stage 2 (mild) (3) Congestive heart failure (CHF) Code(s): I50.9 - HEART FAILURE, UNSPECIFIED Qualifiers: Congestive heart failure type: systolic Congestive heart failure chronicity: chronic Qualified Code(s): I50.22 - Chronic systolic ( congestive) heart failure (4) Diabetes mellitus Code(s): E11.9 - TYPE 2 DIABETES MELLITUS WITHOUT COMPLICATIONS Qualifiers: Diabetes mellitus type: type 2 Diabetes mellitus complication status: with circulatory complication Diabetes mellitus complication detail: with peripheral angiopathy with gangrene Diabetes mellitus commercial baker helper insulin use : with retirement use Qualified Code(s): E11.52 - Type 2 diabetes mellitus with diabetic peripheral angiopathy with gangrene; Z79.4 - 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
[2017-05-21] MEDS: ZOLPIDEM TARTRATE 5 MG TABLET PO PRN (21:26)
[2017-05-21] MEDS: HEPARIN - 25,000 UNIT in SODIUM CHLORIDE 495 ML IV SCH (21:27)
[2017-05-21] MEDS ORDERED: INSULIN (NOVOLOG) ASPART 100 UNITS/ML 10ML VIAL ONE ×2 (21:46→21:52)
[2017-05-22] MEDS: oxyCODONE HCL 5 MG TABLET PO PRN ×4 (01:16→22:49)
[2017-05-22] MEDS: ACETAMINOPHEN 325 MG TABLET (FP) PO PRN ×4 (01:17→22:50)
[2017-05-22] MEDS: PIPERACILLIN/TAZOB 3.375 GM 50 ML IVPB SCH ×3 (02:58→17:33)
[2017-05-22] MEDS ORDERED: PT OWN MED DRAWER 7, Y5N ONE ×3 (05:45→20:59)
[2017-05-22] MEDS: morphine SO4 SUSTAINED ACTING 30 MG TABLET.SA PO SCH ×3 (05:47→21:05)
[2017-05-22] MEDS: FUROSEMIDE 40 MG TABLET (FP) PO SCH (05:47)
[2017-05-22] MEDS: hydrALAZINE HCL 10 MG TABLET PO SCH ×3 (05:47→21:05)
[2017-05-22] MEDS: METOPROLOL TARTRATE 50 MG TABLET (FP) PO SCH ×3 (05:47→21:05)
[2017-05-22] MEDS: INSULIN SLIDING SCALE (NOVOLOG) 1 VIAL SQ SCH ×4 (06:10→21:07)
[2017-05-22] MEDS: INSULIN DETEMIR 100 UNITS/ML MDV SQ SCH ×2 (06:15→17:34)
[2017-05-22 06:17] LABS: MCH 27.5 pg (25.7-33.7); MCHC 31.3 g/dl (32.0-35.9); MEAN CELL VOLUME 87.6 fl (80-96); MEAN PLT VOLUME 8.9 fl (7.5-11.1); PLATELET COUNT 281 K/MM3 (134-434); RDW 16.7 % (11.9-15.9); WHITE BLOOD COUNT 14.2 K/mm3 (4.0-10.0)
[2017-05-22] MEDS: ALBUTEROL SO4 0.083% IH SOL 2.5 MG/3 ML VIAL.NEB. NEB SCH ×3 (06:30→17:52)
[2017-05-22 06:55] LABS: ANION GAP 5 (8-16); CALCIUM 8.2 mg/dL (8.5-10.1); CO2 33 mmol/L (21-32); CREATININE 1.3 mg/dL (0.7-1.3); GLUCOSE,RANDOM 132 mg/dL (74-106); MAGNESIUM 2.1 mg/dL (1.8-2.4)
--- NOTE | 2017-05-22 09:10 | PN ---
Progress Note, Physician Chief Complaint: [place] History of Present Illness: no cp. no abd pain like on 05/19 episode. different abd discomfort sec to constipation no more sob, no orthopnea no palpitations - Current Medication List Current Medications: Active Medications Acetaminophen (Tylenol -) 650 mg PO Q4H PRN PRN Reason: FEVER OR PAIN Last Admin: 05/22/17 08:35 Dose: 650 mg Aclidinium [place] (Tudorza -) 1 puff IH BID [facility] Last Admin: 05/21/17 21:29 Dose: 1 puff Albuterol Sulfate (Ventolin 0.083% Nebulizer Soln -) 1 amp NEB QIDR [facility] Last Admin: 05/22/17 06:30 Dose: 1 amp Aspirin (Ecotrin -) 81 mg PO DAILY [facility] Atorvastatin Calcium (Lipitor -) 80 mg PO DAILY [facility] Budesonide/Formoterol Fumarate (Symbicort 160/4.5mcg -) 2 puff IH BID [facility] Last Admin: 05/21/17 21:28 Dose: 2 puff Clopidogrel Bisulfate (Plavix -) 75 mg PO DAILY [facility] Collagenase (Santyl -) 1 applic TP DAILY [facility] Docusate Sodium (Colace -) 100 mg PO BID [facility] Last Admin: 05/21/17 21:26 Dose: 100 mg Furosemide (Lasix -) 40 mg PO BID@0600,1400 [facility] Last Admin: 05/22/17 05:47 Dose: 40 mg Heparin Sodium (Porcine) (Heparin -) 5,000 unit IVPUSH PRN PRN PRN Reason: Heparin Heparin Sodium (Porcine) (Heparin -) 1,000 unit IVPUSH PRN PRN PRN Reason: Heparin Hydralazine HCl (Apresoline -) 10 mg PO TID [facility] Last Admin: 05/22/17 05:47 Dose: 10 mg Heparin Sodium (Porcine) 25, (000 unit/ Sodium Chloride) 500 mls @ 20 mls/hr IV TITR [facility]; 1,000 UNIT/HR PRN Reason: Protocol Last Titration: 05/22/17 08:37 Dose: 1,650 unit/hr Vancomycin HCl 1,250 mg/ (Dextrose) 250 mls @ 166.667 mls/hr IVPB DAILY [facility] PRN Reason: Protocol Piperacillin Sod/Tazobactam Sod (Zosyn 3.375gm Ivpb (Pre-Docked)) 50 mls @ 100 mls/hr IVPB Q8H-IV [facility] PRN Reason: Protocol Last Admin: 05/22/17 02:58 Dose: 100 mls/hr Insulin Aspart (Novolog Vial Sliding Scale -) 1 vial SQ ACHS [facility] PRN Reason: Protocol Last Admin: 05/22/17 06:10 Dose: Not Given Insulin Detemir (Levemir Vial) 30 units SQ BIDAC [facility] Last Admin: 05/22/17 06:15 Dose: 30 units Magnesium Oxide (Mag-Ox -) 400 mg PO BID [facility] Last Admin: 05/21/17 21:26 Dose: 400 mg Metoprolol Tartrate (Lopressor -) 50 mg PO TID [facility] Last Admin: 05/22/17 05:47 Dose: 50 mg Morphine Sulfate (Ms Contin -) 60 mg PO TID [facility] Last Admin: 05/22/17 05:47 Dose: 60 mg Non-Formulary Medication (Lansoprazole [Prevacid]) 30 mg PO DAILY [facility] Ondansetron HCl (Zofran Injection) 4 mg IVPUSH Q6H PRN PRN Reason: NAUSEA AND/OR VOMITING Oxycodone HCl (Roxicodone -) 10 mg PO Q4H PRN PRN Reason: PAIN Last Admin: 05/22/17 08:36 Dose: 10 mg Polyethylene Glycol (Miralax (For Daily Use) -) 17 gm PO BID PRN PRN Reason: CONSTIPATION Zolpidem Tartrate (Ambien -) 5 mg PO HS PRN PRN Reason: sleep Last Admin: 05/21/17 21:26 Dose: 5 mg - Objective Vital Signs: Vital Signs Temperature 97.9 F 05/22/17 05:55 Pulse Rate 64 05/22/17 05:55 Respiratory Rate 20 05/22/17 05:55 Blood Pressure 135/77 05/22/17 05:55 O2 Sat by Pulse Oximetry (%) 96 05/21/17 20:52 Constitutional: Yes: Well Nourished, No Distress, Calm Cardiovascular: Yes: Regular Rate and Rhythm (decr intensity), JVD, S1, S2. No : Gallop, Murmur Respiratory: Yes: Regular, CTA Bilaterally. No: Accessory Muscle Use Extremities: No: Cold Edema: No Neurological: Yes: Alert, Oriented Psychiatric: No: Agitated Labs: CBC, BMP 05/22/17 05:05 05/22/17 05:05 INR, PTT INR 1.20 (0.82-1.09) H 05/19/17 07:40 - ....Imaging EKG: Other (tele: NSR) Assessment/Plan Echo 05/15: mod to sev decr LVEF; severe hypokinesis of all lindsey except basal segments. nl RV. mild MR/TR. no peric eff. Echo 01/2017: mild global HK, lvef 45-50, nl rv, nl rvsp, mild lae, mild tr Echo 12/2016: TDS; LVSF is "at least mildly reduced: RWM assessment tds; nl RV; nl LA; mild MR/TR; no veg seen (Git[place] review: EF mod-severely decr'd, ? global (cannot accurately assess for RWMAs)--suspect EF is 35-40%.) Echo 04/2015: mod global HK; RV tds; trace AI CXR 05/21 (image reviewed): signif intersitital edema pattern persists, L effusion EKG 05/19, 7:09:18: sinus tach, old IWMI (q's) with baseline wander artifact present, possibly 0.5mm ST elev in III, avF; nonsp ST-Ts I/avL slightly increased vs prior 03/13/17. 05/19 at 7:09:53: no change 05/19 at 15:35: NSR, old IWMI; NSST-Ts V4-6 and I/avL (V4-6 new vs baseline). inferior ST elev resolved sepsis: -? PNA, + DM foot ulcer -however unexplained persistent high fevers here--fever resolved since 05/20 -BCx's neg -cont abx per crit care/ID NSTEMI: -known unrevascularized CAD as of last cath 2011 as outlined below -no cardio f/u and no known recent stress tests -NSTEMI here in setting of active infection (sx's abd pain > CP) -trop peak 3.98, trended down -on ASA and plavix from before (for recurrent CVAs)--continued here -d/c UFH (completed 72 hrs, no clinical evidence of ongoing ischemia) -cont BB, high intensity statin as doing -echo with signif drop in prior LVEF and diffuse hypokinesis of all mid and apical segments--? left main or large wrap-around LAD plaque rupture (not typical description for Takotsubo's) -deferring cath until infectious process is better defined and is well controlled (see prior notes) CAD: -s/p PCI (LIBBY) to 100% occl RPDA in 2004 ([facility]) with patent prior RCA stents at that time, EF 50% then; -s/p anterior STEMI 2011 with [place] LIBBY x 2 to mid LAD then (tenisha); residual dz then included 80% prox D1 (large vessel), 95% mD1; 70%mRCA (pre and post prior stents), 70% dCFX; (also 40% RPDA; 60% pCFX; 40% mCFX;) EF then 37% with AK of apex/AL lindsey and AK of IW; -has repeatedly refused regular cardio (used to see roddy suarez, stopped going , we see him in hospital every time but he declines f/u with us in office) -no known recent stress test -meds as described isch CMP/acute syst CHF exacerbation: -mild dec lvef on most recent echo, worsened now due to acute ischemia -vol status stable on lasix 80 qd as outpt -here with mild chf likely 2/2 pna, started lasix 40 iv qd -cont toprol, hydralazine. -WENDY has previously been deferred, apparently due to GFR concerns (not listed on admit or d/c meds on all prior admits back to 01/12 here, no hyperK ever here on trended labs in computer) -would rec trial low dose WENDY if he can tolerate (will confirm with dr gale no prior known side effects) -acute chf triggered by NSTEMI on 05/19 -received lasix 40mg iv qd x 2d, then 40 po bid for past 24 hrs -cxr remains congested, mild JVD persists, though no further sob (in bed only)-- will cont iv lasix for now (40 iv bid today, then reassess tomorrow) HTN: -bp controlled -cont current meds h/o CVA: -dx'd lacunar infarct 02/10 clinically then (slurred speech) -? acute CVA/TIA 11/13, seen by neuro then--ASA added to prior plavix at that time -same meds BRANT on CKD: -cr freq fluctuates 1.5-2.9 on past admits here, most recently 1.3-1.5 in 03/15 -slightly elevated above baseline initially (sepsis? chf?)--improved now anemia: -H/H stable, observe trend est crit care time in pt mngmt and hi-complexity decision making to treat potentially life threatening illness = 35 min
--- NOTE | 2017-05-22 09:36 | EKG ---
Test Reason : Blood Pressure : / mmHG Vent. Rate : 083 BPM Atrial Rate : 083 BPM P-R Int : 192 ms QRS Dur : 104 ms QT Int : 392 ms P-R-T Axes : 033 -31 126 degrees QTc Int : 460 ms NORMAL SINUS RHYTHM LEFT AXIS DEVIATION INFERIOR INFARCT (CITED ON OR BEFORE 16-SEP-2001) CANNOT RULE OUT ANTERIOR INFARCT , AGE UNDETERMINED ABNORMAL ECG WHEN COMPARED WITH ECG OF 19-MAY-2017 07:09, FUSION COMPLEXES ARE NO LONGER PRESENT VENT. RATE HAS DECREASED BY 43 BPM T WAVE INVERSION MORE EVIDENT IN LATERAL LEADS Confirmed by JOAO MAYEN MD ([id number]) on 05/22/2017 9:36:11 AM Referred By: NICOLE SWEENEY Confirmed By:JOAO MAYEN MD
[2017-05-22] MEDS ORDERED: PATIENT'S OWN MEDICATION (NON-FORMULARY) (Lansoprazole [Prevacid] 30 MG) PO SCH (10:00)
--- NOTE | 2017-05-22 10:47 | EKG ---
Test Reason : Blood Pressure : / mmHG Vent. Rate : 126 BPM Atrial Rate : 126 BPM P-R Int : 000 ms QRS Dur : 100 ms QT Int : 296 ms P-R-T Axes : 000 -38 091 degrees QTc Int : 428 ms SINUS TACHYCARDIA WITH FUSION COMPLEXES LEFT AXIS DEVIATION INFERIOR INFARCT (CITED ON OR BEFORE 16-SEP-2001) ABNORMAL ECG Confirmed by JOAO MAYEN MD ([id number]) on 05/22/2017 10:47:26 AM Referred By: Confirmed By:JOAO MAYEN MD
--- NOTE | 2017-05-22 10:48 | PN ---
Progress Note, Physician Chief Complaint: Mr Scott says he is doing well. No cp, sob, n/v. Says he wants to go home. - Current Medication List Current Medications: Active Medications Acetaminophen (Tylenol -) 650 mg PO Q4H PRN PRN Reason: FEVER OR PAIN Last Admin: 05/22/17 08:35 Dose: 650 mg Aclidinium [place] (Tudorza -) [address] [facility] Last Admin: 05/21/17 21:29 Dose: 1 puff Albuterol Sulfate (Ventolin 0.083% Nebulizer Soln -) [address] [facility] Last Admin: 05/22/17 06:30 Dose: 1 amp Aspirin (Ecotrin -) [address] [facility] Atorvastatin Calcium (Lipitor -) [address] [facility] Budesonide/Formoterol Fumarate (Symbicort 160/4.5mcg -) [address] [facility] Last Admin: 05/21/17 21:28 Dose: 2 puff Clopidogrel Bisulfate (Plavix -) [address] [facility] Collagenase (Santyl -) [address] [facility] Docusate Sodium (Colace -) [address] [facility] Last Admin: 05/21/17 21:26 Dose: 100 mg Furosemide (Lasix Injection -) [address] [facility] Furosemide (Lasix Injection -) 40 mg IVPUSH ONCE ONE Stop: 05/22/17 14:01 Heparin Sodium (Porcine) (Heparin -) 5,000 unit IVPUSH PRN PRN PRN Reason: Heparin Heparin Sodium (Porcine) (Heparin -) 1,000 unit IVPUSH PRN PRN PRN Reason: Heparin Hydralazine HCl (Apresoline -) [address] [facility] Last Admin: 05/22/17 05:47 Dose: 10 mg Heparin Sodium (Porcine) 25, (000 unit/ Sodium Chloride) 500 mls @ 20 mls/hr IV TITR [facility]; 1,000 UNIT/HR PRN Reason: Protocol Last Titration: 05/22/17 08:37 Dose: 1,650 unit/hr Vancomycin HCl 1,250 mg/ (Dextrose) 250 mls @ 166.667 mls/hr IVPB DAILY [facility] PRN Reason: Protocol Piperacillin Sod/Tazobactam Sod (Zosyn 3.375gm Ivpb (Pre-Docked)) 50 mls @ 100 mls/hr IVPB Q8H-IV [facility] PRN Reason: Protocol Last Admin: 05/22/17 02:58 Dose: 100 mls/hr Insulin Aspart (Novolog Vial Sliding Scale -) 1 vial SQ ACHS [facility] PRN Reason: Protocol Last Admin: 05/22/17 06:10 Dose: Not Given Insulin Detemir (Levemir Vial) [address] [facility] Last Admin: 05/22/17 06:15 Dose: 30 units Magnesium Oxide (Mag-Ox -) [address] [facility] Last Admin: 05/21/17 21:26 Dose: 400 mg Metoprolol Tartrate (Lopressor -) [address] [facility] Last Admin: 05/22/17 05:47 Dose: 50 mg Morphine Sulfate (Ms Contin -) [address] [facility] Last Admin: 05/22/17 05:47 Dose: 60 mg Non-Formulary Medication (Lansoprazole [Prevacid]) [address] [facility] Ondansetron HCl (Zofran Injection) 4 mg IVPUSH Q6H PRN PRN Reason: NAUSEA AND/OR VOMITING Oxycodone HCl (Roxicodone -) 10 mg PO Q4H PRN PRN Reason: PAIN Last Admin: 05/22/17 08:36 Dose: 10 mg Polyethylene Glycol (Miralax (For Daily Use) -) 17 gm PO BID PRN PRN Reason: CONSTIPATION Zolpidem Tartrate (Ambien -) 5 mg PO HS PRN PRN Reason: sleep Last Admin: 05/21/17 21:26 Dose: 5 mg - Objective Vital Signs: Vital Signs Temperature 97.9 F 05/22/17 05:55 Pulse Rate 64 05/22/17 10:15 Respiratory Rate 20 05/22/17 05:55 Blood Pressure 135/77 05/22/17 05:55 O2 Sat by Pulse Oximetry (%) 99 05/22/17 10:15 Constitutional: Yes: No Distress, Calm, Obese Cardiovascular: Yes: Regular Rate and Rhythm. No: Gallop, Murmur, Rub Respiratory: Yes: Regular, CTA Bilaterally, On Nasal O2. No: Rales, Rhonchi, Wheezes Gastrointestinal: Yes: Normal Bowel Sounds, Soft. No: Distention, Tenderness Extremities: Yes: WNL Edema: No Labs: CBC, BMP 05/22/17 05:05 05/22/17 05:05 INR, PTT INR 1.20 (0.82-1.09) H 05/19/17 07:40 Problem List - Problems (1) Pneumonia Code(s): J18.9 - PNEUMONIA, UNSPECIFIED ORGANISM Qualifiers: Pneumonia type: due to unspecified organism Laterality: right Lung location: unspecified part of lung Qualified Code(s): J18.9 - Pneumonia, unspecified organism (2) Sepsis Code(s): A41.9 - SEPSIS, UNSPECIFIED ORGANISM (3) Renal failure (ARF), acute on chronic Code(s): N17.9 - ACUTE KIDNEY FAILURE, UNSPECIFIED N18.9 - CHRONIC KIDNEY DISEASE, UNSPECIFIED (4) CAD (coronary artery disease) Code(s): I25.10 - ATHSCL HEART DISEASE OF [place] CORONARY ARTERY W/O ANG PCTRS Qualifiers: (5) COPD (chronic obstructive pulmonary disease) Code(s): J44.9 - CHRONIC OBSTRUCTIVE PULMONARY DISEASE, UNSPECIFIED (6) Chronic pain Code(s): G89.29 - OTHER CHRONIC PAIN (7) Congestive heart failure (CHF) Code(s): I50.9 - HEART FAILURE, UNSPECIFIED Qualifiers: Congestive heart failure type: systolic Congestive heart failure chronicity: chronic Qualified Code(s): I50.22 - Chronic systolic ( congestive) heart failure (8) Diabetes mellitus Code(s): E11.9 - TYPE 2 DIABETES MELLITUS WITHOUT COMPLICATIONS Qualifiers: Diabetes mellitus type: type 2 Diabetes mellitus complication status: with circulatory complication Diabetes mellitus complication detail: with peripheral angiopathy with gangrene Diabetes mellitus superintendent terminal insulin use : with nursing home use Qualified Code(s): E11.52 - Type 2 diabetes mellitus with diabetic peripheral angiopathy with gangrene; 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 (9) Diabetic foot ulcer Code(s): E11.621 - TYPE 2 DIABETES MELLITUS WITH FOOT ULCER L97.509 - NON-PRESSURE CHRONIC ULCER OTH PRT UNSP FOOT W UNSP SEVERITY (10) Hypertension Code(s): I10 - ESSENTIAL (PRIMARY) HYPERTENSION Assessment/Plan (1) Pneumonia Assessment/Plan: -seen on CT scan -continue vancomycin and zosyn -ID following -defer to ID on when can change to oral antibiotics Code(s): J18.9 - PNEUMONIA, UNSPECIFIED ORGANISM Qualifiers: Pneumonia type: due to unspecified organism Laterality: right Lung location: upper lobe of lung Qualified Code(s): J18.1 - Lobar pneumonia, unspecified organism (2) Sepsis Assessment/Plan: -leukcytosis improving -otherwise resolved -continue antibiotics as above Code(s): A41.9 - SEPSIS, UNSPECIFIED ORGANISM (3) Renal failure (ARF), acute on chronic Assessment/Plan: -at baseline -monitor Code(s): N17.9 - ACUTE KIDNEY FAILURE, UNSPECIFIED N18.9 - CHRONIC KIDNEY DISEASE, UNSPECIFIED (4) CAD (coronary artery disease) Assessment/Plan: -NSTEMI -still on heparin gtt -cardiology following and medical management Code(s): I25.10 - ATHSCL HEART DISEASE OF [place] CORONARY ARTERY W/O ANG PCTRS Qualifiers: (5) COPD (chronic obstructive pulmonary disease) Assessment/Plan: -pulmonary following Code(s): J44.9 - CHRONIC OBSTRUCTIVE PULMONARY DISEASE, UNSPECIFIED (6) Chronic pain Assessment/Plan: -controlled -continue ms contin with oxycodone prn Code(s): G89.29 - OTHER CHRONIC PAIN (7) Congestive heart failure (CHF) Assessment/Plan: -lasix changed from oral to IV -continue diuresis Code(s): I50.9 - HEART FAILURE, UNSPECIFIED Qualifiers: Congestive heart failure type: systolic Congestive heart failure chronicity: chronic Qualified Code(s): I50.22 - Chronic systolic ( congestive) heart failure (8) Diabetes mellitus Assessment/Plan: -levemir increased yesterday -monitor today for improvement -diabetic diet -SSI Code(s): E11.9 - TYPE 2 DIABETES MELLITUS WITHOUT COMPLICATIONS Qualifiers: Diabetes mellitus type: type 2 Diabetes mellitus complication status: with circulatory complication Diabetes mellitus complication detail: with peripheral angiopathy with gangrene Diabetes mellitus superintendent terminal insulin use : with nursing home use Qualified Code(s): E11.52 - Type 2 diabetes mellitus with diabetic peripheral angiopathy with gangrene; Z79.4 - [facility]iary ( current) use of insulin (9) Diabetic foot ulcer Assessment/Plan: -healing -monitor Code(s): E11.621 - TYPE 2 DIABETES MELLITUS WITH FOOT ULCER L97.509 - NON-PRESSURE CHRONIC ULCER OTH PRT UNSP FOOT W UNSP SEVERITY (10) Hypertension Assessment/Plan: -continue lopressor and hydralazine Code(s): I10 - ESSENTIAL (PRIMARY) HYPERTENSION Dispo -PT consult today, evaluate weakness -pending change to oral antibiotics, d/c heparin gtt, and change to oral lasix
[2017-05-22] MEDS: DOCUSATE SODIUM 100 MG CAPSULE (FP) PO SCH ×2 (11:13→21:05)
[2017-05-22] MEDS: MAGNESIUM OXIDE 400 MG TABLET (FP) PO SCH ×2 (11:13→21:05)
[2017-05-22] MEDS: ATORVASTATIN CA 80 MG TABLET (FP) PO SCH (11:13)
[2017-05-22] MEDS: CLOPIDOGREL BISULFATE 75 MG TABLET (FP) PO SCH (11:13)
[2017-05-22] MEDS: ASPIRIN COATED 81 MG TABLET.EC PO SCH (11:14)
[2017-05-22] MEDS: FUROSEMIDE 40 MG/4 ML INJECTABLE VIAL IVPUSH SCH (11:16)
[2017-05-22] MEDS: ACLIDINIUM BROMIDE 400 MCG/INH AERO.POWD IH SCH ×2 (11:36→21:10)
[2017-05-22] MEDS: BUDESONIDE/FORMETEROL FUMARATE 160/4.5 mcg INHALER IH SCH ×2 (11:36→21:09)
[2017-05-22] MEDS: VANCOMYCIN 1,250 MG in DEXTROSE 5%-WATER - 250 ML IVPB SCH (11:37)
[2017-05-22] MEDS: COLLAGENASE CLOSTRIDIUM HIST. 30 GRAMS TUBE TP SCH (11:37)
[2017-05-22] MEDS: HEPARIN - 25,000 UNIT in SODIUM CHLORIDE 495 ML IV SCH (11:39)
[2017-05-22] MEDS: HEPARIN NA (PORCINE) 5,000 UNITS/ML 1ML VIAL SQ SCH ×2 (13:54→21:07)
--- NOTE | 2017-05-22 13:55 | PN ---
Progress Note (short form) - Note Progress Note: PULMONARY/CCM States breathing is slowly improving but still short of breath. +nonproductive cough with occasional wheezing. No fevers or chills. Last Vital Signs Temp Pulse Resp BP Pulse Ox 98 F 68 20 162/78 99 05/22/17 13:09 05/22/17 13:09 05/22/17 13:09 05/22/17 13:09 05/22/17 10:15 Intake & Output 05/19/17 05/20/17 05/21/17 05/22/17 23:59 23:59 23:59 23:59 Intake Total 1210 3169 1669 413 Output Total 1100 3550 1650 Balance 110 -381 19 413 Weight 207 lb 3.752 oz 202 lb 9.677 oz Gen: breathing nonlabored Heart: RRR Lung: scattered rhonchi Abd: soft, nontender Ext: no edema CBC, BMP 05/22/17 05:05 05/22/17 05:05 Active Medications Acetaminophen (Tylenol -) 650 mg PO Q4H PRN PRN Reason: FEVER OR PAIN Last Admin: 05/22/17 08:35 Dose: 650 mg Aclidinium [place] (Tudorza -) 1 puff IH BID [facility] Last Admin: 05/22/17 11:36 Dose: 1 puff Albuterol Sulfate (Ventolin 0.083% Nebulizer Soln -) 1 amp NEB QIDR [facility] Last Admin: 05/22/17 11:05 Dose: 1 amp Aspirin (Ecotrin -) 81 mg PO DAILY [facility] Last Admin: 05/22/17 11:14 Dose: 81 mg Atorvastatin Calcium (Lipitor -) 80 mg PO DAILY [facility] Last Admin: 05/22/17 11:13 Dose: 80 mg Budesonide/Formoterol Fumarate (Symbicort 160/4.5mcg -) 2 puff IH BID [facility] Last Admin: 05/22/17 11:36 Dose: 2 puff Clopidogrel Bisulfate (Plavix -) 75 mg PO DAILY [facility] Last Admin: 05/22/17 11:13 Dose: 75 mg Collagenase (Santyl -) 1 applic TP DAILY [facility] Last Admin: 05/22/17 11:37 Dose: 1 applic Docusate Sodium (Colace -) 100 mg PO BID [facility] Last Admin: 05/22/17 11:13 Dose: 100 mg Furosemide (Lasix Injection -) 40 mg IVPUSH DAILY [facility] Last Admin: 05/22/17 11:16 Dose: 40 mg Furosemide (Lasix Injection -) 40 mg IVPUSH ONCE ONE Stop: 05/22/17 14:01 Heparin Sodium (Porcine) (Heparin -) 5,000 unit SQ TID [facility] Hydralazine HCl (Apresoline -) 10 mg PO TID [facility] Last Admin: 05/22/17 05:47 Dose: 10 mg Vancomycin HCl 1,250 mg/ (Dextrose) 250 mls @ 166.667 mls/hr IVPB DAILY [facility] PRN Reason: Protocol Last Admin: 05/22/17 11:37 Dose: 166.667 mls/hr Piperacillin Sod/Tazobactam Sod (Zosyn 3.375gm Ivpb (Pre-Docked)) 50 mls @ 100 mls/hr IVPB Q8H-IV [facility] PRN Reason: Protocol Last Admin: 05/22/17 11:12 Dose: 100 mls/hr Insulin Aspart (Novolog Vial Sliding Scale -) 1 vial SQ ACHS [facility] PRN Reason: Protocol Last Admin: 05/22/17 11:40 Dose: Not Given Insulin Detemir (Levemir Vial) 30 units SQ BIDAC [facility] Last Admin: 05/22/17 06:15 Dose: 30 units Magnesium Oxide (Mag-Ox -) 400 mg PO BID [facility] Last Admin: 05/22/17 11:13 Dose: 400 mg Metoprolol Tartrate (Lopressor -) 50 mg PO TID [facility] Last Admin: 05/22/17 05:47 Dose: 50 mg Morphine Sulfate (Ms Contin -) 60 mg PO TID [facility] Last Admin: 05/22/17 05:47 Dose: 60 mg Non-Formulary Medication (Lansoprazole [Prevacid]) 30 mg PO DAILY [facility] Ondansetron HCl (Zofran Injection) 4 mg IVPUSH Q6H PRN PRN Reason: NAUSEA AND/OR VOMITING Oxycodone HCl (Roxicodone -) 10 mg PO Q4H PRN PRN Reason: PAIN Last Admin: 05/22/17 08:36 Dose: 10 mg Polyethylene Glycol (Miralax (For Daily Use) -) 17 gm PO BID PRN PRN Reason: CONSTIPATION Last Admin: 05/22/17 11:12 Dose: 17 gm Zolpidem Tartrate (Ambien -) 5 mg PO HS PRN PRN Reason: sleep Last Admin: 05/21/17 21:26 Dose: 5 mg A/P Pneumonia Diabetic Foot Ulcer Sepsis Acute NSTEMI/CAD Acute on Chronic Systolic Heart Failure Acute on Chronic Renal Failure improving HTN DM - continue antibiotics - lasix - monitor urine output, creatinine - glucose control - PO as tolerated - rehab/PT - DVT prophylaxis
[2017-05-22] MEDS ORDERED: FUROSEMIDE 40 MG/4 ML INJECTABLE VIAL IVPUSH ONE (14:00)
--- NOTE | 2017-05-22 18:52 | PN ---
Progress Note, Physician History of Present Illness: patient stable continues to improve - Current Medication List Current Medications: Active Medications Acetaminophen (Tylenol -) 650 mg PO Q4H PRN PRN Reason: FEVER OR PAIN Last Admin: 05/22/17 17:34 Dose: 650 mg Aclidinium [place] (Tudorza -) 1 puff IH BID [facility] Last Admin: 05/22/17 11:36 Dose: 1 puff Albuterol Sulfate (Ventolin 0.083% Nebulizer Soln -) 1 amp NEB QIDR [facility] Last Admin: 05/22/17 17:52 Dose: 1 amp Aspirin (Ecotrin -) 81 mg PO DAILY [facility] Last Admin: 05/22/17 11:14 Dose: 81 mg Atorvastatin Calcium (Lipitor -) 80 mg PO DAILY [facility] Last Admin: 05/22/17 11:13 Dose: 80 mg Budesonide/Formoterol Fumarate (Symbicort 160/4.5mcg -) 2 puff IH BID [facility] Last Admin: 05/22/17 11:36 Dose: 2 puff Clopidogrel Bisulfate (Plavix -) 75 mg PO DAILY [facility] Last Admin: 05/22/17 11:13 Dose: 75 mg Collagenase (Santyl -) 1 applic TP DAILY [facility] Last Admin: 05/22/17 11:37 Dose: 1 applic Docusate Sodium (Colace -) 100 mg PO BID [facility] Last Admin: 05/22/17 11:13 Dose: 100 mg Furosemide (Lasix Injection -) 40 mg IVPUSH DAILY [facility] Last Admin: 05/22/17 11:16 Dose: 40 mg Heparin Sodium (Porcine) (Heparin -) 5,000 unit SQ TID [facility] Last Admin: 05/22/17 13:54 Dose: 5,000 unit Hydralazine HCl (Apresoline -) 10 mg PO TID [facility] Last Admin: 05/22/17 13:56 Dose: 10 mg Vancomycin HCl 1,250 mg/ (Dextrose) 250 mls @ 166.667 mls/hr IVPB DAILY [facility] PRN Reason: Protocol Last Admin: 05/22/17 11:37 Dose: 166.667 mls/hr Piperacillin Sod/Tazobactam Sod (Zosyn 3.375gm Ivpb (Pre-Docked)) 50 mls @ 100 mls/hr IVPB Q8H-IV [facility] PRN Reason: Protocol Last Admin: 05/22/17 17:33 Dose: 100 mls/hr Insulin Aspart (Novolog Vial Sliding Scale -) 1 vial SQ ACHS [facility] PRN Reason: Protocol Last Admin: 05/22/17 17:42 Dose: Not Given Insulin Detemir (Levemir Vial) 30 units SQ BIDAC [facility] Last Admin: 05/22/17 17:34 Dose: 30 units Magnesium Oxide (Mag-Ox -) 400 mg PO BID [facility] Last Admin: 05/22/17 11:13 Dose: 400 mg Metoprolol Tartrate (Lopressor -) 50 mg PO TID [facility] Last Admin: 05/22/17 13:52 Dose: 50 mg Morphine Sulfate (Ms Contin -) 60 mg PO TID [facility] Last Admin: 05/22/17 13:53 Dose: 60 mg Non-Formulary Medication (Lansoprazole [Prevacid]) 30 mg PO DAILY [facility] Ondansetron HCl (Zofran Injection) 4 mg IVPUSH Q6H PRN PRN Reason: NAUSEA AND/OR VOMITING Oxycodone HCl (Roxicodone -) 10 mg PO Q4H PRN PRN Reason: PAIN Last Admin: 05/22/17 17:33 Dose: 10 mg Polyethylene Glycol (Miralax (For Daily Use) -) 17 gm PO BID PRN PRN Reason: CONSTIPATION Last Admin: 05/22/17 11:12 Dose: 17 gm Pregabalin (Lyrica -) 25 mg PO BID [facility] Zolpidem Tartrate (Ambien -) 5 mg PO HS PRN PRN Reason: sleep Last Admin: 05/21/17 21:26 Dose: 5 mg - Objective Vital Signs: Vital Signs Temperature 98.2 F 05/22/17 16:00 Pulse Rate 67 05/22/17 16:00 Respiratory Rate 11 L 05/22/17 16:00 Blood Pressure 151/82 05/22/17 16:00 O2 Sat by Pulse Oximetry (%) 99 05/22/17 10:15 Constitutional: Yes: Calm Cardiovascular: Yes: S1, S2 Respiratory: Yes: Poor Air Entry, Rhonchi Gastrointestinal: Yes: Normal Bowel Sounds, Soft Musculoskeletal: Yes: Other Extremities: Yes: Other Neurological: Yes: Alert, Oriented Psychiatric: Yes: Alert, Oriented Labs: CBC, BMP 05/22/17 05:05 05/22/17 05:05 INR, PTT INR 1.20 (0.82-1.09) H 05/19/17 07:40 Assessment/Plan Problem List - Problems (1) Pneumonia Code(s): J18.9 - PNEUMONIA, UNSPECIFIED ORGANISM Qualifiers: Pneumonia type: due to unspecified organism Laterality: right Lung location: upper lobe of lung Qualified Code(s): J18.1 - Lobar pneumonia, unspecified organism (2) Sepsis Code(s): A41.9 - SEPSIS, UNSPECIFIED ORGANISM (3) Renal failure (ARF), acute on chronic Code(s): N17.9 - ACUTE KIDNEY FAILURE, UNSPECIFIED N18.9 - CHRONIC KIDNEY DISEASE, UNSPECIFIED (4) CAD (coronary artery disease) Code(s): I25.10 - ATHSCL HEART DISEASE OF [place] CORONARY ARTERY W/O ANG PCTRS Qualifiers: (5) COPD (chronic obstructive pulmonary disease) Code(s): J44.9 - CHRONIC OBSTRUCTIVE PULMONARY DISEASE, UNSPECIFIED (6) Chronic pain Code(s): G89.29 - OTHER CHRONIC PAIN (7) Congestive heart failure (CHF) Code(s): I50.9 - HEART FAILURE, UNSPECIFIED Qualifiers: Congestive heart failure type: systolic Congestive heart failure chronicity: chronic Qualified Code(s): I50.22 - Chronic systolic ( congestive) heart failure (8) Diabetes mellitus Code(s): E11.9 - TYPE 2 DIABETES MELLITUS WITHOUT COMPLICATIONS Qualifiers: Diabetes mellitus type: type 2 Diabetes mellitus complication status: with circulatory complication Diabetes mellitus complication detail: with peripheral angiopathy with gangrene Diabetes mellitus [facility] insulin use : with [facility] use Qualified Code(s): E11.52 - Type 2 diabetes mellitus with diabetic peripheral angiopathy with gangrene; Z79.4 - assisted ( current) use of insulin (9) Diabetic foot ulcer Code(s): E11.621 - TYPE 2 DIABETES MELLITUS WITH FOOT ULCER L97.509 - NON-PRESSURE CHRONIC ULCER OTH PRT UNSP FOOT W UNSP SEVERITY (10) Hypertension Code(s): I10 - ESSENTIAL (PRIMARY) HYPERTENSION patient in sepsis the exact cause fever unknown yet plan continue abx cx results noted resp support monitor closely
[2017-05-22] MEDS: PREGABALIN 25 MG CAPSULE PO SCH (21:04)
[2017-05-22] MEDS: ZOLPIDEM TARTRATE 5 MG TABLET PO PRN (21:05)
[2017-05-23] MEDS: PIPERACILLIN/TAZOB 3.375 GM 50 ML IVPB SCH ×3 (02:16→17:49)
[2017-05-23] MEDS: oxyCODONE HCL 5 MG TABLET PO PRN ×3 (02:55→17:43)
[2017-05-23] MEDS: ACETAMINOPHEN 325 MG TABLET (FP) PO PRN (02:59)
[2017-05-23] MEDS ORDERED: PT OWN MED DRAWER 7, Y5N ONE ×3 (05:28→21:15)
[2017-05-23] MEDS: HEPARIN NA (PORCINE) 5,000 UNITS/ML 1ML VIAL SQ SCH ×3 (05:39→21:07)
[2017-05-23] MEDS: hydrALAZINE HCL 10 MG TABLET PO SCH ×3 (05:39→21:14)
[2017-05-23] MEDS: METOPROLOL TARTRATE 50 MG TABLET (FP) PO SCH ×3 (05:39→21:08)
[2017-05-23] MEDS: morphine SO4 SUSTAINED ACTING 30 MG TABLET.SA PO SCH ×3 (05:40→21:07)
[2017-05-23] MEDS: ALBUTEROL SO4 0.083% IH SOL 2.5 MG/3 ML VIAL.NEB. NEB SCH ×4 (06:06→19:50)
[2017-05-23 06:07] LABS: MCH 27.8 pg (25.7-33.7); MEAN CELL VOLUME 86.8 fl (80-96); MEAN PLT VOLUME 8.9 fl (7.5-11.1); PLATELET COUNT 336 K/MM3 (134-434); RDW 16.8 % (11.9-15.9); WHITE BLOOD COUNT 16.4 K/mm3 (4.0-10.0)
[2017-05-23 06:36] LABS: ANION GAP 7 (8-16); CALCIUM 8.5 mg/dL (8.5-10.1); CO2 35 mmol/L (21-32); CREATININE 1.3 mg/dL (0.7-1.3); GLUCOSE,RANDOM 106 mg/dL (74-106); MAGNESIUM 2.1 mg/dL (1.8-2.4); PHOSPHOROUS 3.2 mg/dL (2.5-4.9)
[2017-05-23] MEDS: VANCOMYCIN 1,250 MG in DEXTROSE 5%-WATER - 250 ML IVPB SCH (09:34)
[2017-05-23] MEDS: CLOPIDOGREL BISULFATE 75 MG TABLET (FP) PO SCH (09:35)
[2017-05-23] MEDS: PREGABALIN 25 MG CAPSULE PO SCH ×2 (09:35→21:08)
[2017-05-23] MEDS: MAGNESIUM OXIDE 400 MG TABLET (FP) PO SCH ×2 (09:35→21:08)
[2017-05-23] MEDS: DOCUSATE SODIUM 100 MG CAPSULE (FP) PO SCH ×2 (09:35→21:08)
[2017-05-23] MEDS: ASPIRIN COATED 81 MG TABLET.EC PO SCH (09:35)
[2017-05-23] MEDS: FUROSEMIDE 40 MG/4 ML INJECTABLE VIAL IVPUSH SCH (09:35)
[2017-05-23] MEDS: BUDESONIDE/FORMETEROL FUMARATE 160/4.5 mcg INHALER IH SCH ×2 (09:40→21:15)
[2017-05-23] MEDS: ACLIDINIUM BROMIDE 400 MCG/INH AERO.POWD IH SCH ×2 (09:40→21:16)
[2017-05-23] MEDS: ATORVASTATIN CA 80 MG TABLET (FP) PO SCH (09:44)
[2017-05-23] MEDS: INSULIN DETEMIR 100 UNITS/ML MDV SQ SCH ×2 (09:44→17:46)
--- NOTE | 2017-05-23 11:06 | PN ---
Progress Note (short form) - Note Progress Note: Chief Complaint: [place] History of Present Illness: no cp. no abd pain like on 05/19 episode. no more sob, no orthopnea no palpitations ex cigs - Current Medication List Current Medications Generic Name Dose Route Start Last Admin Trade Name Freq PRN Reason Stop Dose Admin Acetaminophen 650 mg 05/21/17 11:21 05/23/17 02:59 Tylenol - PO 650 mg Q4H PRN Administration FEVER OR PAIN Aclidinium [place] 1 puff 05/21/17 22:00 05/23/17 09:40 Tudorza - IH 1 puff BID RADHA Administration Albuterol Sulfate 1 amp 05/21/17 12:00 05/23/17 06:06 Ventolin 0.083% Nebulizer Soln - NEB 1 amp QIDR RADHA Administration Aspirin 81 mg 05/22/17 10:00 05/23/17 09:35 Ecotrin - PO 81 mg DAILY RADHA Administration Atorvastatin Calcium 80 mg 05/22/17 10:00 05/23/17 09:44 Lipitor - PO 80 mg DAILY RADHA Administration Budesonide/Formoterol Fumarate 2 puff 05/21/17 22:00 05/23/17 09:40 Symbicort 160/4.5mcg - IH 2 puff BID RADHA Administration Clopidogrel Bisulfate 75 mg 05/22/17 10:00 05/23/17 09:35 Plavix - PO 75 mg DAILY RADHA Administration Collagenase 1 applic 05/22/17 10:00 05/22/17 11:37 Santyl - TP 1 applic DAILY RADHA Administration Docusate Sodium 100 mg 05/21/17 22:00 05/23/17 09:35 Colace - PO 100 mg BID RADHA Administration Furosemide 40 mg 05/22/17 10:00 05/23/17 09:35 Lasix Injection - IVPUSH 40 mg DAILY RADHA Administration Heparin Sodium (Porcine) 5,000 unit 05/22/17 14:00 05/23/17 05:39 Heparin - SQ 5,000 unit TID RADHA Administration Hydralazine HCl 10 mg 05/21/17 14:00 05/23/17 05:39 Apresoline - PO 10 mg TID RADHA Administration Vancomycin HCl 1,250 mg/ 250 mls @ 166.667 mls/hr 05/22/17 10:00 05/23/17 09:34 Dextrose IVPB 166.667 mls/hr DAILY RADHA Administration Protocol Piperacillin Sod/Tazobactam Sod 50 mls @ 100 mls/hr 05/21/17 18:00 05/23/17 09: 38 Zosyn 3.375gm Ivpb (Pre-Docked) IVPB 100 mls/hr Q8H-IV RADHA Administration Protocol Insulin Aspart 1 vial 05/21/17 16:30 05/22/17 21:07 Novolog Vial Sliding Scale - SQ 2 units ACHS RADHA Administration Protocol Insulin Detemir 30 units 05/21/17 16:30 05/23/17 09:44 Levemir Vial SQ 30 units BIDAC RADHA Administration Magnesium Oxide 400 mg 05/21/17 22:00 05/23/17 09:35 Mag-Ox - PO 400 mg BID RADHA Administration Metoprolol Tartrate 50 mg 05/21/17 14:00 05/23/17 05:39 Lopressor - PO 50 mg TID RADHA Administration Morphine Sulfate 60 mg 05/21/17 14:00 05/23/17 05:40 Ms Contin - PO 60 mg TID RADHA Administration Non-Formulary Medication 30 mg 05/22/17 10:00 Lansoprazole [Prevacid] PO DAILY RADHA Ondansetron HCl 4 mg 05/21/17 11:21 Zofran Injection IVPUSH Q6H PRN NAUSEA AND/OR VOMITING Oxycodone HCl 10 mg 05/21/17 11:21 05/23/17 08:40 Roxicodone - PO 10 mg Q4H PRN Administration PAIN Polyethylene Glycol 17 gm 05/21/17 11:21 05/22/17 11:12 Miralax (For Daily Use) - PO 17 gm BID PRN Administration CONSTIPATION Pregabalin 25 mg 05/22/17 22:00 05/23/17 09:35 Lyrica - PO 25 mg BID RADHA Administration Zolpidem Tartrate 5 mg 05/21/17 11:21 05/22/17 21:05 Ambien - PO 5 mg HS PRN Administration sleep - Objective Vital Signs: Vital Signs Temp 97.5 F L 05/23/17 06:00 Pulse 62 05/23/17 06:00 Resp 17 05/23/17 06:00 BP 163/71 05/23/17 06:00 Pulse Ox 99 05/22/17 20:00 Intake & Output 05/22/17 05/22/17 05/23/17 11:59 23:59 11:59 Intake Total 461 393 0916 Output Total 900 520 Balance 413 -250 480 Intake: IV 363 Heparin - 25,000 Unit In 363 Normal Saline - 495 ml @ 1,000 UNIT/HR 20 mls/hr IV TITR RADHA Rx#: [id number] IVPB 50 200 Oral 250 1000 Oral Supplement 200 Output: Urine 900 520 Void 900 520 Other: Voiding Method Urinal Urinal Bowel Movement No No No nad no jvd rrr s1s2 no mrg cta bl nl eff aaox3 no le e/c/c abd nt nd pos bs no jaundice diaphoresis pos dp pt no carotid bruits Laboratory Last Values WBC 16.4 K/mm3 (4.0-10.0) H 05/23/17 05:10 RBC 3.63 M/mm3 (4.00-5.60) L 05/23/17 05:10 Hgb 10.1 GM/dL (11.7-16.9) L 05/23/17 05:10 Hct 31.5 % (35.4-49) L 05/23/17 05:10 MCV 86.8 fl (80-96) 05/23/17 05:10 MCH 27.8 pg (25.7-33.7) 05/23/17 05:10 MCHC 32.0 g/dl (32.0-35.9) 05/23/17 05:10 RDW 16.8 % (11.9-15.9) H 05/23/17 05:10 Plt Count 336 K/MM3 (134-434) 05/23/17 05:10 MPV 8.9 fl (7.5-11.1) 05/23/17 05:10 Neutrophils % 72.0 % (42.8-82.8) 05/22/17 05:05 Lymphocytes % 19.0 % (8-40) D 05/22/17 05:05 Monocytes % 8.0 % (3.8-10.2) 05/22/17 05:05 Eosinophils % 1.0 % (0-4.5) D 05/22/17 05:05 Basophils % 0.4 % (0-2.0) 05/18/17 06:00 INR 1.20 (0.82-1.09) H 05/19/17 07:40 PTT (Actin FS) 28.0 SECONDS (26.9-34.4) D 05/23/17 05:10 VBG pH 7.32 (7.32-7.42) 05/17/17 04:19 POC VBG pCO2 61.2 mmHg (38-52) H* 05/17/17 04:19 POC VBG pO2 29.1 mmHg (28-48) 05/17/17 04:19 Mixed VBG HCO3 30.4 meq/L (19-25) H 05/17/17 04:19 Sodium 139 mmol/L (136-145) 05/23/17 05:10 Potassium 4.5 mmol/L (3.5-5.1) D 05/23/17 05:10 Chloride 97 mmol/L (98-107) L 05/23/17 05:10 Carbon Dioxide 35 mmol/L (21-32) H 05/23/17 05:10 Anion Gap 7 (8-16) L 05/23/17 05:10 BUN 31 mg/dL (7-18) H 05/23/17 05:10 Creatinine 1.3 mg/dL (0.7-1.3) 05/23/17 05:10 Creat Clearance w eGFR 54.73 (>60) 05/21/17 05:10 POC Glucometer 214.87946 UNITS (()) 05/22/17 20:53 Random Glucose 106 mg/dL (74-106) 05/23/17 05:10 Lactic Acid 1.6 mmol/L (0.4-2.0) 05/19/17 07:40 Calcium 8.5 mg/dL (8.5-10.1) 05/23/17 05:10 Phosphorus 3.2 mg/dL (2.5-4.9) 05/23/17 05:10 Magnesium 2.1 mg/dL (1.8-2.4) 05/23/17 05:10 Total Bilirubin 0.5 mg/dL (0.2-1.0) D 05/21/17 05:10 AST 25 U/L (15-37) 05/21/17 05:10 ALT 31 U/L (12-78) 05/21/17 05:10 Alkaline Phosphatase 81 U/L (45-117) 05/21/17 05:10 Creatine Kinase 33 IU/L (39-308) L 05/20/17 19:45 Troponin I 1.74 ng/ml (0.00-0.05) H* D 05/20/17 19:45 B-Natriuretic Peptide 5638.51 pg/ml (5-125) H 05/17/17 08:00 Total Protein 5.8 g/dl (6.4-8.2) L 05/21/17 05:10 Albumin 2.6 g/dl (3.4-5.0) L 05/21/17 05:10 Urine Color Ltyellow 05/17/17 06:20 Urine Appearance Clear 05/17/17 06:20 Urine pH 5.0 (5.0-8.0) 05/17/17 06:20 Ur Specific [place] 1.010 (1.005-1.025) 05/17/17 06:20 Urine Protein 2+ (NEGATIVE) H 05/17/17 06:20 Urine Glucose (UA) Negative (NEGATIVE) 05/17/17 06:20 Urine Ketones Negative (NEGATIVE) 05/17/17 06:20 Urine Blood Negative (NEGATIVE) 05/17/17 06:20 Urine Nitrite Negative (NEGATIVE) 05/17/17 06:20 Urine Bilirubin Negative (NEGATIVE) 05/17/17 06:20 Urine Urobilinogen Negative mg/dL (0.2-1.0) 05/17/17 06:20 Ur Leukocyte Esterase Trace (NEGATIVE) H 05/17/17 06:20 Urine RBC 1 /hpf (0-3) 05/17/17 06:20 Urine WBC 4 /hpf (3-5) 05/17/17 06:20 Urine Mucus Rare 05/17/17 06:20 Blood Type AB POSITIVE 05/17/17 08:00 Antibody Screen Negative 05/17/17 08:00 - ....Imaging EKG: Other (tele: SR) Echo 05/15: mod to sev decr LVEF; severe hypokinesis of all lindsey except basal segments. nl RV. mild MR/TR. no peric eff. Echo 01/2017: mild global HK, lvef 45-50, nl rv, nl rvsp, mild lae, mild tr Echo 12/2016: TDS; LVSF is "at least mildly reduced: RWM assessment tds; nl RV; nl LA; mild MR/TR; no veg seen (Gitig review: EF mod-severely decr'd, ? global (cannot accurately assess for RWMAs)--suspect EF is 35-40%.) Echo 04/2015: mod global HK; RV tds; trace AI CXR 05/21 (image reviewed): signif intersitital edema pattern persists, L effusion EKG 05/19, 7:09:18: sinus tach, old IWMI (q's) with baseline wander artifact present, possibly 0.5mm ST elev in III, avF; nonsp ST-Ts I/avL slightly increased vs prior 03/13/17. 05/19 at 7:09:53: no change 05/19 at 15:35: NSR, old IWMI; NSST-Ts V4-6 and I/avL (V4-6 new vs baseline). inferior ST elev resolved a/p: sepsis: -? PNA, + DM foot ulcer -however unexplained persistent high fevers here--fever resolved since 05/20 -BCx's neg -cont abx per crit care/ID NSTEMI: -known unrevascularized CAD as of last cath 2011 as outlined below -no cardio f/u and no known recent stress tests -NSTEMI here in setting of active infection (sx's abd pain > CP) -trop peak 3.98, trended down -on ASA and plavix from before (for recurrent CVAs)--continued here -completed 72 hrs hep gtt, no clinical evidence of ongoing ischemia -cont BB, high intensity statin as doing -echo with signif drop in prior LVEF and diffuse hypokinesis of all mid and apical segments--? left main or large wrap-around LAD plaque rupture (not typical description for Takotsubo's) -deferring cath until infectious process is better defined and is well controlled (see prior notes) CAD: -s/p PCI (LIBBY) to 100% occl RPDA in 2004 ([place]) with patent prior RCA stents at that time, EF 50% then; -s/p anterior STEMI 2011 with [place] LIBBY x 2 to mid LAD then ([place]); residual dz then included 80% prox D1 (large vessel), 95% mD1; 70%mRCA (pre and post prior stents), 70% dCFX; (also 40% RPDA; 60% pCFX; 40% mCFX;) EF then 37% with AK of apex/AL lindsey and AK of IW; -has repeatedly refused regular cardio (used to see roddy suarez, stopped going , we see him in hospital every time but he declines f/u with us in office) -no known recent stress test -meds as described isch CMP/acute syst CHF exacerbation: -mild dec lvef on most recent echo, worsened now due to acute ischemia -vol status stable on lasix 80 qd as outpt -here with mild chf likely 2/2 pna, started lasix 40 iv qd -then acute chf triggered by NSTEMI on 05/19, cont with lasix 40 iv qd for now -cont toprol, hydralazine. -per pmd office records, pt was on ramipril in past, creat went up to 2.5 so it was stopped close to 2 yrs ago. given pt's repeated failure to follow up regularly in office with us, i would not rec resuming WENDY trial as he will need very frequent outpt labs monitoring. if he decides to follow with cardio regularly, can try lower effective dose ( e.g. lisinopril 2.5) than what he was previously on, and try titrate up slowly HTN: -bp controlled -cont current meds h/o CVA: -dx'd lacunar infarct 02/10 clinically then (slurred speech) -? acute CVA/TIA 11/13, seen by neuro then--ASA added to prior plavix at that time -same meds BRANT on CKD: -cr freq fluctuates 1.5-2.9 on past admits here, most recently 1.3-1.5 in 03/15 -slightly elevated above baseline initially (sepsis? chf?)--improved now anemia: -H/H stable, observe trend
--- NOTE | 2017-05-23 11:28 | PN ---
Progress Note, Physician Chief Complaint: Mr Scott says he is improving. Was able to get up and walk with PT. No cp, sob , n/v. - Current Medication List Current Medications: Active Medications Acetaminophen (Tylenol -) 650 mg PO Q4H PRN PRN Reason: FEVER OR PAIN Last Admin: 05/23/17 02:59 Dose: 650 mg Aclidinium [place] (Tudorza -) 1 puff IH BID [facility] Last Admin: 05/23/17 09:40 Dose: 1 puff Albuterol Sulfate (Ventolin 0.083% Nebulizer Soln -) 1 amp NEB QIDR [facility] Last Admin: 05/23/17 06:06 Dose: 1 amp Aspirin (Ecotrin -) 81 mg PO DAILY [facility] Last Admin: 05/23/17 09:35 Dose: 81 mg Atorvastatin Calcium (Lipitor -) 80 mg PO DAILY [facility] Last Admin: 05/23/17 09:44 Dose: 80 mg Budesonide/Formoterol Fumarate (Symbicort 160/4.5mcg -) 2 puff IH BID [facility] Last Admin: 05/23/17 09:40 Dose: 2 puff Clopidogrel Bisulfate (Plavix -) 75 mg PO DAILY [facility] Last Admin: 05/23/17 09:35 Dose: 75 mg Collagenase (Santyl -) 1 applic TP DAILY [facility] Last Admin: 05/22/17 11:37 Dose: 1 applic Docusate Sodium (Colace -) 100 mg PO BID [facility] Last Admin: 05/23/17 09:35 Dose: 100 mg Furosemide (Lasix Injection -) 40 mg IVPUSH DAILY [facility] Last Admin: 05/23/17 09:35 Dose: 40 mg Heparin Sodium (Porcine) (Heparin -) 5,000 unit SQ TID [facility] Last Admin: 05/23/17 05:39 Dose: 5,000 unit Hydralazine HCl (Apresoline -) 10 mg PO TID [facility] Last Admin: 05/23/17 05:39 Dose: 10 mg Vancomycin HCl 1,250 mg/ (Dextrose) 250 mls @ 166.667 mls/hr IVPB DAILY [facility] PRN Reason: Protocol Last Admin: 05/23/17 09:34 Dose: 166.667 mls/hr Piperacillin Sod/Tazobactam Sod (Zosyn 3.375gm Ivpb (Pre-Docked)) 50 mls @ 100 mls/hr IVPB Q8H-IV RADHA PRN Reason: Protocol Last Admin: 05/23/17 09:38 Dose: 100 mls/hr Insulin Aspart (Novolog Vial Sliding Scale -) 1 vial SQ ACHS RADHA PRN Reason: Protocol Last Admin: 05/22/17 21:07 Dose: 2 units Insulin Detemir (Levemir Vial) 30 units SQ BIDAC [facility] Last Admin: 05/23/17 09:44 Dose: 30 units Magnesium Oxide (Mag-Ox -) 400 mg PO BID [facility] Last Admin: 05/23/17 09:35 Dose: 400 mg Metoprolol Tartrate (Lopressor -) 50 mg PO TID [facility] Last Admin: 05/23/17 05:39 Dose: 50 mg Morphine Sulfate (Ms Contin -) 60 mg PO TID [facility] Last Admin: 05/23/17 05:40 Dose: 60 mg Non-Formulary Medication (Lansoprazole [Prevacid]) 30 mg PO DAILY [facility] Ondansetron HCl (Zofran Injection) 4 mg IVPUSH Q6H PRN PRN Reason: NAUSEA AND/OR VOMITING Oxycodone HCl (Roxicodone -) 10 mg PO Q4H PRN PRN Reason: PAIN Last Admin: 05/23/17 08:40 Dose: 10 mg Polyethylene Glycol (Miralax (For Daily Use) -) 17 gm PO BID PRN PRN Reason: CONSTIPATION Last Admin: 05/22/17 11:12 Dose: 17 gm Pregabalin (Lyrica -) 25 mg PO BID [facility] Last Admin: 05/23/17 09:35 Dose: 25 mg Zolpidem Tartrate (Ambien -) 5 mg PO HS PRN PRN Reason: sleep Last Admin: 05/22/17 21:05 Dose: 5 mg - Objective Vital Signs: Vital Signs Temperature 97.5 F L 05/23/17 06:00 Pulse Rate 62 05/23/17 06:00 Respiratory Rate 17 05/23/17 06:00 Blood Pressure 163/71 05/23/17 06:00 O2 Sat by Pulse Oximetry (%) 99 05/22/17 20:00 Constitutional: Yes: No Distress, Calm, Obese Cardiovascular: Yes: Regular Rate and Rhythm. No: Gallop, Murmur, Rub Respiratory: Yes: Regular, CTA Bilaterally. No: Rales, Rhonchi, Wheezes Gastrointestinal: Yes: Normal Bowel Sounds, Soft. No: Distention, Tenderness Extremities: Yes: WNL Edema: No Labs: CBC, BMP 05/23/17 05:10 05/23/17 05:10 INR, PTT INR 1.20 (0.82-1.09) H 05/19/17 07:40 Problem List - Problems (1) Pneumonia Code(s): J18.9 - PNEUMONIA, UNSPECIFIED ORGANISM Qualifiers: Pneumonia type: due to unspecified organism Laterality: right Lung location: unspecified part of lung Qualified Code(s): J18.9 - Pneumonia, unspecified organism (2) Sepsis Code(s): A41.9 - SEPSIS, UNSPECIFIED ORGANISM (3) Renal failure (ARF), acute on chronic Code(s): N17.9 - ACUTE KIDNEY FAILURE, UNSPECIFIED N18.9 - CHRONIC KIDNEY DISEASE, UNSPECIFIED (4) CAD (coronary artery disease) Code(s): I25.10 - ATHSCL HEART DISEASE OF [place] CORONARY ARTERY W/O ANG PCTRS Qualifiers: (5) COPD (chronic obstructive pulmonary disease) Code(s): J44.9 - CHRONIC OBSTRUCTIVE PULMONARY DISEASE, UNSPECIFIED (6) Chronic pain Code(s): G89.29 - OTHER CHRONIC PAIN (7) Congestive heart failure (CHF) Code(s): I50.9 - HEART FAILURE, UNSPECIFIED Qualifiers: Congestive heart failure type: systolic Congestive heart failure chronicity: chronic Qualified Code(s): I50.22 - Chronic systolic ( congestive) heart failure (8) Diabetes mellitus Code(s): E11.9 - TYPE 2 DIABETES MELLITUS WITHOUT COMPLICATIONS Qualifiers: Diabetes mellitus type: type 2 Diabetes mellitus complication status: with circulatory complication Diabetes mellitus complication detail: with peripheral angiopathy with gangrene Diabetes mellitus intermediate insulin use : with intermediate use Qualified Code(s): E11.52 - Type 2 diabetes mellitus with diabetic peripheral angiopathy with gangrene; Z79.4 - ferry terminal agent ( current) use of insulin (9) Diabetic foot ulcer Code(s): E11.621 - TYPE 2 DIABETES MELLITUS WITH FOOT ULCER L97.509 - NON-PRESSURE CHRONIC ULCER OTH PRT UNSP FOOT W UNSP SEVERITY (10) Hypertension Code(s): I10 - ESSENTIAL (PRIMARY) HYPERTENSION Assessment/Plan (1) Pneumonia Assessment/Plan: -case d/w ID -continue vancomycin and zosyn today -d/c vancomycin tomorrow -if still improving, change zosyn to oral antibiotics in 48 hours Code(s): J18.9 - PNEUMONIA, UNSPECIFIED ORGANISM Qualifiers: Pneumonia type: due to unspecified organism Laterality: right Lung location: upper lobe of lung Qualified Code(s): J18.1 - Lobar pneumonia, unspecified organism (2) Sepsis Assessment/Plan: -leukocytosis at baseline -antibiotics as above Code(s): A41.9 - SEPSIS, UNSPECIFIED ORGANISM (3) Renal failure (ARF), acute on chronic Assessment/Plan: -at baseline -monitor Code(s): N17.9 - ACUTE KIDNEY FAILURE, UNSPECIFIED N18.9 - CHRONIC KIDNEY DISEASE, UNSPECIFIED (4) CAD (coronary artery disease) Assessment/Plan: -NSTEMI -still on heparin gtt -cardiology following and medical management Code(s): I25.10 - ATHSCL HEART DISEASE OF [place] CORONARY ARTERY W/O ANG PCTRS Qualifiers: (5) COPD (chronic obstructive pulmonary disease) Assessment/Plan: -pulmonary following Code(s): J44.9 - CHRONIC OBSTRUCTIVE PULMONARY DISEASE, UNSPECIFIED (6) Chronic pain Assessment/Plan: -controlled -continue ms contin with oxycodone prn Code(s): G89.29 - OTHER CHRONIC PAIN (7) Congestive heart failure (CHF) Assessment/Plan: -continue oral lasix Code(s): I50.9 - HEART FAILURE, UNSPECIFIED Qualifiers: Congestive heart failure type: systolic Congestive heart failure chronicity: chronic Qualified Code(s): I50.22 - Chronic systolic ( congestive) heart failure (8) Diabetes mellitus Assessment/Plan: -glucose improved today -continue levemir at increased dose -monitor to see if needs further adjustment Code(s): E11.9 - TYPE 2 DIABETES MELLITUS WITHOUT COMPLICATIONS Qualifiers: Diabetes mellitus type: type 2 Diabetes mellitus complication status: with circulatory complication Diabetes mellitus complication detail: with peripheral angiopathy with gangrene Diabetes mellitus intermediate insulin use : with intermediate use Qualified Code(s): E11.52 - Type 2 diabetes mellitus with diabetic peripheral angiopathy with gangrene; Z79.4 - ferry terminal agent ( current) use of insulin (9) Diabetic foot ulcer Assessment/Plan: -healing -monitor Code(s): E11.621 - TYPE 2 DIABETES MELLITUS WITH FOOT ULCER L97.509 - NON-PRESSURE CHRONIC ULCER OTH PRT UNSP FOOT W UNSP SEVERITY (10) Hypertension Assessment/Plan: -continue lopressor and hydralazine Code(s): I10 - ESSENTIAL (PRIMARY) HYPERTENSION Dispo -off heparin gtt -pending antibiotics -continue PT
--- NOTE | 2017-05-23 13:09 | PN ---
Progress Note (short form) - Note Progress Note: PULMONARY/CCM Breathing continues to slowly improve. Cough and wheezing less. No fevers or chills. Last Vital Signs Temp Pulse Resp BP Pulse Ox 97.5 F L 62 17 163/71 99 05/23/17 06:00 05/23/17 06:00 05/23/17 06:00 05/23/17 06:00 05/22/17 20:00 Intake & Output 05/20/17 05/21/17 05/22/17 05/23/17 23:59 23:59 23:59 23:59 Intake Total 3169 1669 1063 1000 Output Total 3550 1650 900 520 Balance -381 19 163 480 Weight 207 lb 3.752 oz 202 lb 9.677 oz Gen: breathing nonlabored Heart: RRR Lung: scattered rhonchi Abd: soft, nontender Ext: no edema CBC, BMP 05/23/17 05:10 05/23/17 05:10 Active Medications Acetaminophen (Tylenol -) 650 mg PO Q4H PRN PRN Reason: FEVER OR PAIN Last Admin: 05/23/17 02:59 Dose: 650 mg Aclidinium [place] (Tudorza -) 1 puff IH BID [facility] Last Admin: 05/23/17 09:40 Dose: 1 puff Albuterol Sulfate (Ventolin 0.083% Nebulizer Soln -) 1 amp NEB QIDR [facility] Last Admin: 05/23/17 11:56 Dose: 1 amp Aspirin (Ecotrin -) 81 mg PO DAILY [facility] Last Admin: 05/23/17 09:35 Dose: 81 mg Atorvastatin Calcium (Lipitor -) 80 mg PO DAILY [facility] Last Admin: 05/23/17 09:44 Dose: 80 mg Budesonide/Formoterol Fumarate (Symbicort 160/4.5mcg -) 2 puff IH BID [facility] Last Admin: 05/23/17 09:40 Dose: 2 puff Clopidogrel Bisulfate (Plavix -) 75 mg PO DAILY [facility] Last Admin: 05/23/17 09:35 Dose: 75 mg Collagenase (Santyl -) 1 applic TP DAILY [facility] Last Admin: 05/22/17 11:37 Dose: 1 applic Docusate Sodium (Colace -) 100 mg PO BID [facility] Last Admin: 05/23/17 09:35 Dose: 100 mg Furosemide (Lasix Injection -) 40 mg IVPUSH DAILY [facility] Last Admin: 05/23/17 09:35 Dose: 40 mg Heparin Sodium (Porcine) (Heparin -) 5,000 unit SQ TID [facility] Last Admin: 05/23/17 05:39 Dose: 5,000 unit Hydralazine HCl (Apresoline -) 10 mg PO TID [facility] Last Admin: 05/23/17 05:39 Dose: 10 mg Vancomycin HCl 1,250 mg/ (Dextrose) 250 mls @ 166.667 mls/hr IVPB DAILY [facility] PRN Reason: Protocol Last Admin: 05/23/17 09:34 Dose: 166.667 mls/hr Piperacillin Sod/Tazobactam Sod (Zosyn 3.375gm Ivpb (Pre-Docked)) 50 mls @ 100 mls/hr IVPB Q8H-IV [facility] PRN Reason: Protocol Last Admin: 05/23/17 09:38 Dose: 100 mls/hr Insulin Aspart (Novolog Vial Sliding Scale -) 1 vial SQ ACHS [facility] PRN Reason: Protocol Last Admin: 05/22/17 21:07 Dose: 2 units Insulin Detemir (Levemir Vial) 30 units SQ BIDAC [facility] Last Admin: 05/23/17 09:44 Dose: 30 units Magnesium Oxide (Mag-Ox -) 400 mg PO BID [facility] Last Admin: 05/23/17 09:35 Dose: 400 mg Metoprolol Tartrate (Lopressor -) 50 mg PO TID [facility] Last Admin: 05/23/17 05:39 Dose: 50 mg Morphine Sulfate (Ms Contin -) 60 mg PO TID [facility] Last Admin: 05/23/17 05:40 Dose: 60 mg Non-Formulary Medication (Lansoprazole [Prevacid]) 30 mg PO DAILY [facility] Ondansetron HCl (Zofran Injection) 4 mg IVPUSH Q6H PRN PRN Reason: NAUSEA AND/OR VOMITING Oxycodone HCl (Roxicodone -) 10 mg PO Q4H PRN PRN Reason: PAIN Last Admin: 05/23/17 08:40 Dose: 10 mg Polyethylene Glycol (Miralax (For Daily Use) -) 17 gm PO BID PRN PRN Reason: CONSTIPATION Last Admin: 05/22/17 11:12 Dose: 17 gm Pregabalin (Lyrica -) 25 mg PO BID [facility] Last Admin: 05/23/17 09:35 Dose: 25 mg Zolpidem Tartrate (Ambien -) 5 mg PO HS PRN PRN Reason: sleep Last Admin: 05/22/17 21:05 Dose: 5 mg A/P Pneumonia Diabetic Foot Ulcer Sepsis Acute NSTEMI/CAD Acute on Chronic Systolic Heart Failure Acute on Chronic Renal Failure improving HTN DM - continue antibiotics - lasix - monitor urine output, creatinine - glucose control - PO as tolerated - rehab/PT - DVT prophylaxis
[2017-05-23] MEDS: INSULIN SLIDING SCALE (NOVOLOG) 1 VIAL SQ SCH ×4 (14:38→21:08)
[2017-05-23] MEDS: COLLAGENASE CLOSTRIDIUM HIST. 30 GRAMS TUBE TP SCH (14:41)
--- NOTE | 2017-05-23 16:24 | PN ---
Progress Note, Physician History of Present Illness: patient doing well looks much better alert and awake - Current Medication List Current Medications: Active Medications Acetaminophen (Tylenol -) 650 mg PO Q4H PRN PRN Reason: FEVER OR PAIN Last Admin: 05/23/17 02:59 Dose: 650 mg Aclidinium [place] (Tudorza -) 1 puff IH BID [facility] Last Admin: 05/23/17 09:40 Dose: 1 puff Albuterol Sulfate (Ventolin 0.083% Nebulizer Soln -) 1 amp NEB QIDR [facility] Last Admin: 05/23/17 11:56 Dose: 1 amp Aspirin (Ecotrin -) 81 mg PO DAILY [facility] Last Admin: 05/23/17 09:35 Dose: 81 mg Atorvastatin Calcium (Lipitor -) 80 mg PO DAILY [facility] Last Admin: 05/23/17 09:44 Dose: 80 mg Budesonide/Formoterol Fumarate (Symbicort 160/4.5mcg -) 2 puff IH BID [facility] Last Admin: 05/23/17 09:40 Dose: 2 puff Clopidogrel Bisulfate (Plavix -) 75 mg PO DAILY [facility] Last Admin: 05/23/17 09:35 Dose: 75 mg Collagenase (Santyl -) 1 applic TP DAILY [facility] Last Admin: 05/23/17 14:41 Dose: 1 applic Docusate Sodium (Colace -) 100 mg PO BID [facility] Last Admin: 05/23/17 09:35 Dose: 100 mg Furosemide (Lasix Injection -) 40 mg IVPUSH DAILY [facility] Last Admin: 05/23/17 09:35 Dose: 40 mg Heparin Sodium (Porcine) (Heparin -) 5,000 unit SQ TID [facility] Last Admin: 05/23/17 14:34 Dose: 5,000 unit Hydralazine HCl (Apresoline -) 10 mg PO TID [facility] Last Admin: 05/23/17 14:34 Dose: 10 mg Vancomycin HCl 1,250 mg/ (Dextrose) 250 mls @ 166.667 mls/hr IVPB DAILY [facility] PRN Reason: Protocol Last Admin: 05/23/17 09:34 Dose: 166.667 mls/hr Piperacillin Sod/Tazobactam Sod (Zosyn 3.375gm Ivpb (Pre-Docked)) 50 mls @ 100 mls/hr IVPB Q8H-IV [facility] PRN Reason: Protocol Last Admin: 05/23/17 09:38 Dose: 100 mls/hr Insulin Aspart (Novolog Vial Sliding Scale -) 1 vial SQ ACHS [facility] PRN Reason: Protocol Last Admin: 05/23/17 14:38 Dose: 2 units Insulin Detemir (Levemir Vial) 30 units SQ BIDAC [facility] Last Admin: 05/23/17 09:44 Dose: 30 units Magnesium Oxide (Mag-Ox -) 400 mg PO BID [facility] Last Admin: 05/23/17 09:35 Dose: 400 mg Metoprolol Tartrate (Lopressor -) 50 mg PO TID [facility] Last Admin: 05/23/17 14:34 Dose: 50 mg Morphine Sulfate (Ms Contin -) 60 mg PO TID [facility] Last Admin: 05/23/17 14:34 Dose: 60 mg Non-Formulary Medication (Lansoprazole [Prevacid]) 30 mg PO DAILY [facility] Ondansetron HCl (Zofran Injection) 4 mg IVPUSH Q6H PRN PRN Reason: NAUSEA AND/OR VOMITING Oxycodone HCl (Roxicodone -) 10 mg PO Q4H PRN PRN Reason: PAIN Last Admin: 05/23/17 08:40 Dose: 10 mg Polyethylene Glycol (Miralax (For Daily Use) -) 17 gm PO BID PRN PRN Reason: CONSTIPATION Last Admin: 05/22/17 11:12 Dose: 17 gm Pregabalin (Lyrica -) 25 mg PO BID [facility] Last Admin: 05/23/17 09:35 Dose: 25 mg Zolpidem Tartrate (Ambien -) 5 mg PO HS PRN PRN Reason: sleep Last Admin: 05/22/17 21:05 Dose: 5 mg - Objective Vital Signs: Vital Signs Temperature 97.9 F 05/23/17 14:00 Pulse Rate 60 05/23/17 14:00 Respiratory Rate 17 05/23/17 14:00 Blood Pressure 162/76 05/23/17 14:00 O2 Sat by Pulse Oximetry (%) 99 05/22/17 20:00 Constitutional: Yes: No Distress, Calm Cardiovascular: Yes: Regular Rate and Rhythm Respiratory: Yes: Poor Air Entry, Rhonchi Gastrointestinal: Yes: Normal Bowel Sounds, Soft Musculoskeletal: Yes: Other Extremities: Yes: Other Wound/Incision: Yes: Dressing Dry and Intact Neurological: Yes: Alert, Oriented Psychiatric: Yes: Alert, Oriented Labs: CBC, BMP 05/23/17 05:10 05/23/17 05:10 INR, PTT INR 1.20 (0.82-1.09) H 05/19/17 07:40 Assessment/Plan Problem List - Problems (1) Pneumonia Code(s): J18.9 - PNEUMONIA, UNSPECIFIED ORGANISM Qualifiers: Pneumonia type: due to unspecified organism Laterality: right Lung location: upper lobe of lung Qualified Code(s): J18.1 - Lobar pneumonia, unspecified organism (2) Sepsis Code(s): A41.9 - SEPSIS, UNSPECIFIED ORGANISM (3) Renal failure (ARF), acute on chronic Code(s): N17.9 - ACUTE KIDNEY FAILURE, UNSPECIFIED N18.9 - CHRONIC KIDNEY DISEASE, UNSPECIFIED (4) CAD (coronary artery disease) Code(s): I25.10 - ATHSCL HEART DISEASE OF [place] CORONARY ARTERY W/O ANG PCTRS Qualifiers: (5) COPD (chronic obstructive pulmonary disease) Code(s): J44.9 - CHRONIC OBSTRUCTIVE PULMONARY DISEASE, UNSPECIFIED (6) Chronic pain Code(s): G89.29 - OTHER CHRONIC PAIN (7) Congestive heart failure (CHF) Code(s): I50.9 - HEART FAILURE, UNSPECIFIED Qualifiers: Congestive heart failure type: systolic Congestive heart failure chronicity: chronic Qualified Code(s): I50.22 - Chronic systolic ( congestive) heart failure (8) Diabetes mellitus Code(s): E11.9 - TYPE 2 DIABETES MELLITUS WITHOUT COMPLICATIONS Qualifiers: Diabetes mellitus type: type 2 Diabetes mellitus complication status: with circulatory complication Diabetes mellitus complication detail: with peripheral angiopathy with gangrene Diabetes mellitus termite exterminator helper insulin use : with termite exterminator helper use Qualified Code(s): E11.52 - Type 2 diabetes mellitus with diabetic peripheral angiopathy with gangrene; Z79.4 - intermediate designer ( current) use of insulin (9) Diabetic foot ulcer Code(s): E11.621 - TYPE 2 DIABETES MELLITUS WITH FOOT ULCER L97.509 - NON-PRESSURE CHRONIC ULCER OTH PRT UNSP FOOT W UNSP SEVERITY (10) Hypertension Code(s): I10 - ESSENTIAL (PRIMARY) HYPERTENSION patient in sepsis the exact cause fever unknown yet plan continue abx cx results noted resp support monitor closely gentle hydration continue as per cardiology incentive sofie
[2017-05-23] MEDS: ZOLPIDEM TARTRATE 5 MG TABLET PO PRN (21:08)
[2017-05-24] MEDS: oxyCODONE HCL 5 MG TABLET PO PRN ×4 (00:37→17:47)
[2017-05-24] MEDS: PIPERACILLIN/TAZOB 3.375 GM 50 ML IVPB SCH ×3 (01:35→17:52)
[2017-05-24] MEDS: ACETAMINOPHEN 325 MG TABLET (FP) PO PRN ×3 (01:43→20:50)
[2017-05-24] MEDS: ALBUTEROL SO4 0.083% IH SOL 2.5 MG/3 ML VIAL.NEB. NEB SCH ×4 (05:30→17:59)
[2017-05-24] MEDS ORDERED: PT OWN MED DRAWER 7, Y5N ONE ×3 (06:23→18:41)
[2017-05-24] MEDS: morphine SO4 SUSTAINED ACTING 30 MG TABLET.SA PO SCH ×3 (06:32→21:50)
[2017-05-24] MEDS: METOPROLOL TARTRATE 50 MG TABLET (FP) PO SCH ×3 (06:33→21:50)
[2017-05-24] MEDS: hydrALAZINE HCL 10 MG TABLET PO SCH ×2 (06:33→14:35)
[2017-05-24] MEDS: HEPARIN NA (PORCINE) 5,000 UNITS/ML 1ML VIAL SQ SCH ×3 (06:33→21:49)
[2017-05-24] MEDS: INSULIN DETEMIR 100 UNITS/ML MDV SQ SCH ×2 (06:34→17:40)
[2017-05-24 06:40] LABS: MCH 28.2 pg (25.7-33.7); MCHC 32.4 g/dl (32.0-35.9); MEAN CELL VOLUME 87.1 fl (80-96); MEAN PLT VOLUME 8.7 fl (7.5-11.1); PLATELET COUNT 340 K/MM3 (134-434); RDW 16.7 % (11.9-15.9); WHITE BLOOD COUNT 16.5 K/mm3 (4.0-10.0)
[2017-05-24] MEDS: INSULIN SLIDING SCALE (NOVOLOG) 1 VIAL SQ SCH ×4 (06:41→22:06)
[2017-05-24 07:00] LABS: ANION GAP 6 (8-16); CALCIUM 8.4 mg/dL (8.5-10.1); CO2 34 mmol/L (21-32); CREATININE 1.3 mg/dL (0.7-1.3); GLUCOSE,RANDOM 75 mg/dL (74-106); MAGNESIUM 2.1 mg/dL (1.8-2.4); PHOSPHOROUS 3.3 mg/dL (2.5-4.9)
[2017-05-24 08:52] LABS: PLATELET ESTIMATE ADEQUATE (NORMAL)
[2017-05-24] MEDS: MAGNESIUM OXIDE 400 MG TABLET (FP) PO SCH ×2 (10:09→21:51)
[2017-05-24] MEDS: FUROSEMIDE 40 MG/4 ML INJECTABLE VIAL IVPUSH SCH (10:10)
[2017-05-24] MEDS: ASPIRIN COATED 81 MG TABLET.EC PO SCH (10:10)
[2017-05-24] MEDS: DOCUSATE SODIUM 100 MG CAPSULE (FP) PO SCH ×2 (10:10→21:51)
[2017-05-24] MEDS: PREGABALIN 25 MG CAPSULE PO SCH ×2 (10:11→21:52)
[2017-05-24] MEDS: CLOPIDOGREL BISULFATE 75 MG TABLET (FP) PO SCH (10:11)
[2017-05-24] MEDS: ATORVASTATIN CA 80 MG TABLET (FP) PO SCH (10:25)
[2017-05-24] MEDS: VANCOMYCIN 1,250 MG in DEXTROSE 5%-WATER - 250 ML IVPB SCH (10:25)
--- NOTE | 2017-05-24 11:04 | PN ---
Progress Note (short form) - Note Progress Note: Chief Complaint: [place] History of Present Illness: no cp. no abd pain like on 05/19 episode. no more sob, no orthopnea no palpitations ex cigs - Current Medication List Current Medications Generic Name Dose Route Start Last Admin Trade Name Freq PRN Reason Stop Dose Admin Acetaminophen 650 mg 05/21/17 11:21 05/24/17 01:43 Tylenol - PO 650 mg Q4H PRN Administration FEVER OR PAIN Aclidinium [place] 1 puff 05/21/17 22:00 05/23/17 21:16 Tudorza - IH 1 puff BID [facility] Administration Albuterol Sulfate 1 amp 05/21/17 12:00 05/24/17 05:30 Ventolin 0.083% Nebulizer Soln - NEB 1 amp QIDR [facility] Administration Aspirin 81 mg 05/22/17 10:00 05/24/17 10:10 Ecotrin - PO 81 mg DAILY [facility] Administration Atorvastatin Calcium 80 mg 05/22/17 10:00 05/24/17 10:25 Lipitor - PO 80 mg DAILY [facility] Administration Budesonide/Formoterol Fumarate 2 puff 05/21/17 22:00 05/23/17 21:15 Symbicort 160/4.5mcg - IH 2 puff BID [facility] Administration Clopidogrel Bisulfate 75 mg 05/22/17 10:00 05/24/17 10:11 Plavix - PO 75 mg DAILY [facility] Administration Collagenase 1 applic 05/22/17 10:00 05/23/17 14:41 Santyl - TP 1 applic DAILY [facility] Administration Docusate Sodium 100 mg 05/21/17 22:00 05/24/17 10:10 Colace - PO 100 mg BID [facility] Administration Furosemide 40 mg 05/22/17 10:00 05/24/17 10:10 Lasix Injection - IVPUSH 40 mg DAILY [facility] Administration Heparin Sodium (Porcine) 5,000 unit 05/22/17 14:00 05/24/17 06:33 Heparin - SQ 5,000 unit TID [facility] Administration Hydralazine HCl 10 mg 05/21/17 14:00 05/24/17 06:33 Apresoline - PO 10 mg TID [facility] Administration Vancomycin HCl 1,250 mg/ 250 mls @ 166.667 mls/hr 05/22/17 10:00 05/24/17 10:25 Dextrose IVPB 166.667 mls/hr DAILY [facility] Administration Protocol Piperacillin Sod/Tazobactam Sod 50 mls @ 100 mls/hr 05/21/17 18:00 05/24/17 10: 12 Zosyn 3.375gm Ivpb (Pre-Docked) IVPB 100 mls/hr Q8H-IV [facility] Administration Protocol Insulin Aspart 1 vial 05/21/17 16:30 05/24/17 06:41 Novolog Vial Sliding Scale - SQ Not Given ACHS [facility] Protocol Insulin Detemir 30 units 05/21/17 16:30 05/24/17 06:34 Levemir Vial SQ 30 units BIDAC [facility] Administration Magnesium Oxide 400 mg 05/21/17 22:00 05/24/17 10:09 Mag-Ox - PO 400 mg BID [facility] Administration Metoprolol Tartrate 50 mg 05/21/17 14:00 05/24/17 06:33 Lopressor - PO 50 mg TID [facility] Administration Morphine Sulfate 60 mg 05/21/17 14:00 05/24/17 06:32 Ms Contin - PO 60 mg TID [facility] Administration Non-Formulary Medication 30 mg 05/22/17 10:00 Lansoprazole [Prevacid] PO DAILY [facility] Ondansetron HCl 4 mg 05/21/17 11:21 Zofran Injection IVPUSH Q6H PRN NAUSEA AND/OR VOMITING Oxycodone HCl 10 mg 05/21/17 11:21 05/24/17 10:08 Roxicodone - PO 10 mg Q4H PRN Administration PAIN Polyethylene Glycol 17 gm 05/21/17 11:21 05/22/17 11:12 Miralax (For Daily Use) - PO 17 gm BID PRN Administration CONSTIPATION Pregabalin 25 mg 05/22/17 22:00 05/24/17 10:11 Lyrica - PO 25 mg BID [facility] Administration Zolpidem Tartrate 5 mg 05/21/17 11:21 05/23/17 21:08 Ambien - PO 5 mg HS PRN Administration sleep - Objective Vital Signs: Vital Signs Period Temp Pulse Resp BP Sys/Chandra Pulse Ox Last 24 Hr 97.9 F-98.5 F 54-66 10-18 136-162/69-94 98-98 nad no jvd rrr s1s2 no mrg cta bl nl eff aaox3 no le e/c/c abd nt nd pos bs no jaundice diaphoresis pos dp pt no carotid bruits CBC, BMP 05/24/17 05:25 05/24/17 05:25 - ....Imaging EKG: Other (tele: SR) Echo 05/15: mod to sev decr LVEF; severe hypokinesis of all lindsey except basal segments. nl RV. mild MR/TR. no peric eff. Echo 01/2017: mild global HK, lvef 45-50, nl rv, nl rvsp, mild lae, mild tr Echo 12/2016: TDS; LVSF is "at least mildly reduced: RWM assessment tds; nl RV; nl LA; mild MR/TR; no veg seen ([place] review: EF mod-severely decr'd, ? global (cannot accurately assess for RWMAs)--suspect EF is 35-40%.) Echo 04/2015: mod global HK; RV tds; trace AI CXR 05/21 (image reviewed): signif intersitital edema pattern persists, L effusion EKG 05/19, 7:09:18: sinus tach, old IWMI (q's) with baseline wander artifact present, possibly 0.5mm ST elev in III, avF; nonsp ST-Ts I/avL slightly increased vs prior 03/13/17. 05/19 at 7:09:53: no change 05/19 at 15:35: NSR, old IWMI; NSST-Ts V4-6 and I/avL (V4-6 new vs baseline). inferior ST elev resolved a/p: sepsis: -? PNA, + DM foot ulcer -however unexplained persistent high fevers here--fever resolved since 05/20 -BCx's neg -cont abx per crit care/ID NSTEMI: -known unrevascularized CAD as of last cath 2011 as outlined below -no cardio f/u and no known recent stress tests -NSTEMI here in setting of active infection (sx's abd pain > CP) -trop peak 3.98, trended down -on ASA and plavix from before (for recurrent CVAs)--continued here -completed 72 hrs hep gtt, no clinical evidence of ongoing ischemia -cont BB, high intensity statin as doing -echo with signif drop in prior LVEF and diffuse hypokinesis of all mid and apical segments--? left main or large wrap-around LAD plaque rupture (not typical description for Takotsubo's) -deferring cath until infectious process is resolved CAD: -s/p PCI ([facility]) to 100% occl RPDA in 2004 ([facility]) with patent prior RCA stents at that time, EF 50% then; -s/p anterior STEMI 2011 with [place] LIBBY x 2 to mid LAD then ([facility]); residual dz then included 80% prox D1 (large vessel), 95% mD1; 70%mRCA (pre and post prior stents), 70% dCFX; (also 40% RPDA; 60% pCFX; 40% mCFX;) EF then 37% with AK of apex/AL lindsey and AK of IW; -has repeatedly refused regular cardio (used to see roddy suarez, stopped going , we see him in hospital every time but he declines f/u with us in office) -no known recent stress test -meds as described isch CMP/acute syst CHF exacerbation: -mild dec lvef on most recent echo, worsened now due to acute ischemia -vol status stable on lasix 80 qd as outpt -here with mild chf likely 2/2 pna, started lasix 40 iv qd -then acute chf triggered by NSTEMI on 05/19, cont with lasix 40 iv qd for now -cont toprol, hydralazine. -per pmd office records, pt was on ramipril in past, creat went up to 2.5 so it was stopped close to 2 yrs ago. given pt's repeated failure to follow up regularly in office with us, i would not rec resuming WENDY trial as he will need very frequent outpt labs monitoring. if he decides to follow with cardio regularly, can try lower effective dose ( e.g. lisinopril 2.5) than what he was previously on, and try titrate up slowly HTN: -bp controlled -cont current meds h/o CVA: -dx'd lacunar infarct 02/10 clinically then (slurred speech) -? acute CVA/TIA 11/13, seen by neuro then--ASA added to prior plavix at that time -same meds BRANT on CKD: -cr freq fluctuates 1.5-2.9 on past admits here, most recently 1.3-1.5 in 03/15 -slightly elevated above baseline initially (sepsis? chf?)--improved now anemia: -H/H stable, observe trend
[2017-05-24] MEDS: BUDESONIDE/FORMETEROL FUMARATE 160/4.5 mcg INHALER IH SCH ×2 (11:16→22:07)
[2017-05-24] MEDS: ACLIDINIUM BROMIDE 400 MCG/INH AERO.POWD IH SCH ×2 (11:16→22:07)
[2017-05-24] MEDS: COLLAGENASE CLOSTRIDIUM HIST. 30 GRAMS TUBE TP SCH (11:16)
--- NOTE | 2017-05-24 12:33 | PN ---
Progress Note (short form) - Note Progress Note: PULMONARY/CCM Breathing continues to slowly improve. No cough but with occasional wheezing. No fevers or chills. Last Vital Signs Temp Pulse Resp BP Pulse Ox 98.5 F 57 L 12 142/80 98 05/23/17 21:00 05/24/17 10:29 05/24/17 08:00 05/24/17 08:00 05/24/17 10:29 Gen: breathing nonlabored Heart: RRR Lung: scattered rhonchi Abd: soft, nontender Ext: no edema CBC, BMP 05/24/17 05:25 05/24/17 05:25 Active Medications Acetaminophen (Tylenol -) 650 mg PO Q4H PRN PRN Reason: FEVER OR PAIN Last Admin: 05/24/17 01:43 Dose: 650 mg Aclidinium [place] (Tudorza -) 1 puff IH BID [facility] Last Admin: 05/24/17 11:16 Dose: 1 puff Albuterol Sulfate (Ventolin 0.083% Nebulizer Soln -) 1 amp NEB QIDR [facility] Last Admin: 05/24/17 12:05 Dose: 1 amp Aspirin (Ecotrin -) 81 mg PO DAILY [facility] Last Admin: 05/24/17 10:10 Dose: 81 mg Atorvastatin Calcium (Lipitor -) 80 mg PO DAILY [facility] Last Admin: 05/24/17 10:25 Dose: 80 mg Budesonide/Formoterol Fumarate (Symbicort 160/4.5mcg -) 2 puff IH BID [facility] Last Admin: 05/24/17 11:16 Dose: 2 puff Clopidogrel Bisulfate (Plavix -) 75 mg PO DAILY [facility] Last Admin: 05/24/17 10:11 Dose: 75 mg Collagenase (Santyl -) 1 applic TP DAILY [facility] Last Admin: 05/24/17 11:16 Dose: 1 applic Docusate Sodium (Colace -) 100 mg PO BID [facility] Last Admin: 05/24/17 10:10 Dose: 100 mg Furosemide (Lasix Injection -) 40 mg IVPUSH DAILY [facility] Last Admin: 05/24/17 10:10 Dose: 40 mg Heparin Sodium (Porcine) (Heparin -) 5,000 unit SQ TID [facility] Last Admin: 05/24/17 06:33 Dose: 5,000 unit Hydralazine HCl (Apresoline -) 10 mg PO TID [facility] Last Admin: 05/24/17 06:33 Dose: 10 mg Vancomycin HCl 1,250 mg/ (Dextrose) 250 mls @ 166.667 mls/hr IVPB DAILY [facility] PRN Reason: Protocol Last Admin: 05/24/17 10:25 Dose: 166.667 mls/hr Piperacillin Sod/Tazobactam Sod (Zosyn 3.375gm Ivpb (Pre-Docked)) 50 mls @ 100 mls/hr IVPB Q8H-IV [facility] PRN Reason: Protocol Last Admin: 05/24/17 10:12 Dose: 100 mls/hr Insulin Aspart (Novolog Vial Sliding Scale -) 1 vial SQ ACHS [facility] PRN Reason: Protocol Last Admin: 05/24/17 11:49 Dose: Not Given Insulin Detemir (Levemir Vial) 30 units SQ BIDAC [facility] Last Admin: 05/24/17 06:34 Dose: 30 units Magnesium Oxide (Mag-Ox -) 400 mg PO BID [facility] Last Admin: 05/24/17 10:09 Dose: 400 mg Metoprolol Tartrate (Lopressor -) 50 mg PO TID [facility] Last Admin: 05/24/17 06:33 Dose: 50 mg Morphine Sulfate (Ms Contin -) 60 mg PO TID [facility] Last Admin: 05/24/17 06:32 Dose: 60 mg Non-Formulary Medication (Lansoprazole [Prevacid]) 30 mg PO DAILY [facility] Ondansetron HCl (Zofran Injection) 4 mg IVPUSH Q6H PRN PRN Reason: NAUSEA AND/OR VOMITING Oxycodone HCl (Roxicodone -) 10 mg PO Q4H PRN PRN Reason: PAIN Last Admin: 05/24/17 10:08 Dose: 10 mg Polyethylene Glycol (Miralax (For Daily Use) -) 17 gm PO BID PRN PRN Reason: CONSTIPATION Last Admin: 05/22/17 11:12 Dose: 17 gm Pregabalin (Lyrica -) 25 mg PO BID [facility] Last Admin: 05/24/17 10:11 Dose: 25 mg Zolpidem Tartrate (Ambien -) 5 mg PO HS PRN PRN Reason: sleep Last Admin: 05/23/17 21:08 Dose: 5 mg A/P Pneumonia Diabetic Foot Ulcer Sepsis Acute NSTEMI/CAD Acute on Chronic Systolic Heart Failure Acute on Chronic Renal Failure improving HTN DM COPD - continue antibiotics - lasix - monitor urine output, creatinine - glucose control - inhaled bronchodilators - PO as tolerated - rehab/PT - DVT prophylaxis
--- NOTE | 2017-05-24 15:29 | PN ---
Progress Note, Physician History of Present Illness: patient stable continues to improve no complaints plan is to transfer for cardiac cath no complaints - Current Medication List Current Medications: Active Medications Acetaminophen (Tylenol -) 650 mg PO Q4H PRN PRN Reason: FEVER OR PAIN Last Admin: 05/24/17 14:36 Dose: 650 mg Aclidinium [place] (Tudorza -) 1 puff IH BID [facility] Last Admin: 05/24/17 11:16 Dose: 1 puff Albuterol Sulfate (Ventolin 0.083% Nebulizer Soln -) 1 amp NEB QIDR [facility] Last Admin: 05/24/17 12:05 Dose: 1 amp Aspirin (Ecotrin -) 81 mg PO DAILY [facility] Last Admin: 05/24/17 10:10 Dose: 81 mg Atorvastatin Calcium (Lipitor -) 80 mg PO DAILY [facility] Last Admin: 05/24/17 10:25 Dose: 80 mg Budesonide/Formoterol Fumarate (Symbicort 160/4.5mcg -) 2 puff IH BID [facility] Last Admin: 05/24/17 11:16 Dose: 2 puff Clopidogrel Bisulfate (Plavix -) 75 mg PO DAILY [facility] Last Admin: 05/24/17 10:11 Dose: 75 mg Collagenase (Santyl -) 1 applic TP DAILY [facility] Last Admin: 05/24/17 11:16 Dose: 1 applic Docusate Sodium (Colace -) 100 mg PO BID [facility] Last Admin: 05/24/17 10:10 Dose: 100 mg Furosemide (Lasix Injection -) 40 mg IVPUSH DAILY [facility] Last Admin: 05/24/17 10:10 Dose: 40 mg Heparin Sodium (Porcine) (Heparin -) 5,000 unit SQ TID [facility] Last Admin: 05/24/17 14:33 Dose: 5,000 unit Hydralazine HCl (Apresoline -) 10 mg PO TID [facility] Last Admin: 05/24/17 14:35 Dose: 10 mg Vancomycin HCl 1,250 mg/ (Dextrose) 250 mls @ 166.667 mls/hr IVPB DAILY [facility] PRN Reason: Protocol Last Admin: 05/24/17 10:25 Dose: 166.667 mls/hr Piperacillin Sod/Tazobactam Sod (Zosyn 3.375gm Ivpb (Pre-Docked)) 50 mls @ 100 mls/hr IVPB Q8H-IV [facility] PRN Reason: Protocol Last Admin: 05/24/17 10:12 Dose: 100 mls/hr Insulin Aspart (Novolog Vial Sliding Scale -) 1 vial SQ ACHS [facility] PRN Reason: Protocol Last Admin: 05/24/17 11:49 Dose: Not Given Insulin Detemir (Levemir Vial) 30 units SQ BIDAC [facility] Last Admin: 05/24/17 06:34 Dose: 30 units Magnesium Oxide (Mag-Ox -) 400 mg PO BID [facility] Last Admin: 05/24/17 10:09 Dose: 400 mg Metoprolol Tartrate (Lopressor -) 50 mg PO TID [facility] Last Admin: 05/24/17 14:33 Dose: 50 mg Morphine Sulfate (Ms Contin -) 60 mg PO TID [facility] Last Admin: 05/24/17 14:33 Dose: 60 mg Non-Formulary Medication (Lansoprazole [Prevacid]) 30 mg PO DAILY [facility] Ondansetron HCl (Zofran Injection) 4 mg IVPUSH Q6H PRN PRN Reason: NAUSEA AND/OR VOMITING Oxycodone HCl (Roxicodone -) 10 mg PO Q4H PRN PRN Reason: PAIN Last Admin: 05/24/17 10:08 Dose: 10 mg Polyethylene Glycol (Miralax (For Daily Use) -) 17 gm PO BID PRN PRN Reason: CONSTIPATION Last Admin: 05/22/17 11:12 Dose: 17 gm Pregabalin (Lyrica -) 25 mg PO BID [facility] Last Admin: 05/24/17 10:11 Dose: 25 mg Zolpidem Tartrate (Ambien -) 5 mg PO HS PRN PRN Reason: sleep Last Admin: 05/23/17 21:08 Dose: 5 mg - Objective Vital Signs: Vital Signs Temperature 98.8 F 05/24/17 14:03 Pulse Rate 65 05/24/17 14:03 Respiratory Rate 15 05/24/17 14:03 Blood Pressure 139/67 05/24/17 14:03 O2 Sat by Pulse Oximetry (%) 98 05/24/17 10:29 Constitutional: Yes: No Distress, Calm Neck: Yes: Supple Cardiovascular: Yes: S1, S2 Respiratory: Yes: Regular Gastrointestinal: Yes: Normal Bowel Sounds, Soft Musculoskeletal: Yes: Other Extremities: Yes: Other Wound/Incision: Yes: Dressing Dry and Intact Neurological: Yes: Alert, Oriented Psychiatric: Yes: Alert, Oriented Labs: CBC, BMP 05/24/17 05:25 05/24/17 05:25 INR, PTT INR 1.20 (0.82-1.09) H 05/19/17 07:40 Assessment/Plan Problem List - Problems (1) Pneumonia Code(s): J18.9 - PNEUMONIA, UNSPECIFIED ORGANISM Qualifiers: Pneumonia type: due to unspecified organism Laterality: right Lung location: upper lobe of lung Qualified Code(s): J18.1 - Lobar pneumonia, unspecified organism (2) Sepsis Code(s): A41.9 - SEPSIS, UNSPECIFIED ORGANISM (3) Renal failure (ARF), acute on chronic Code(s): N17.9 - ACUTE KIDNEY FAILURE, UNSPECIFIED N18.9 - CHRONIC KIDNEY DISEASE, UNSPECIFIED (4) CAD (coronary artery disease) Code(s): I25.10 - ATHSCL HEART DISEASE OF [place] CORONARY ARTERY W/O ANG PCTRS Qualifiers: (5) COPD (chronic obstructive pulmonary disease) Code(s): J44.9 - CHRONIC OBSTRUCTIVE PULMONARY DISEASE, UNSPECIFIED (6) Chronic pain Code(s): G89.29 - OTHER CHRONIC PAIN (7) Congestive heart failure (CHF) Code(s): I50.9 - HEART FAILURE, UNSPECIFIED Qualifiers: Congestive heart failure type: systolic Congestive heart failure chronicity: chronic Qualified Code(s): I50.22 - Chronic systolic ( congestive) heart failure (8) Diabetes mellitus Code(s): E11.9 - TYPE 2 DIABETES MELLITUS WITHOUT COMPLICATIONS Qualifiers: Diabetes mellitus type: type 2 Diabetes mellitus complication status: with circulatory complication Diabetes mellitus complication detail: with peripheral angiopathy with gangrene Diabetes mellitus longterm insulin use : with terminal operations supervisor use Qualified Code(s): E11.52 - Type 2 diabetes mellitus with diabetic peripheral angiopathy with gangrene; Z79.4 - senior living ( current) use of insulin (9) Diabetic foot ulcer Code(s): E11.621 - TYPE 2 DIABETES MELLITUS WITH FOOT ULCER L97.509 - NON-PRESSURE CHRONIC ULCER OTH PRT UNSP FOOT W UNSP SEVERITY (10) Hypertension Code(s): I10 - ESSENTIAL (PRIMARY) HYPERTENSION patient in sepsis the exact cause fever unknown yet plan continue abx cx results noted resp support monitor closely will stop abx after tomorrow
--- NOTE | 2017-05-24 15:36 | PN ---
Progress Note, Physician Chief Complaint: Mr Scott says he is doing well. No cp, sob, n/v. Ambulating without difficulty per patient. Complains of insomnia. - Current Medication List Current Medications: Active Medications Acetaminophen (Tylenol -) 650 mg PO Q4H PRN PRN Reason: FEVER OR PAIN Last Admin: 05/24/17 14:36 Dose: 650 mg Aclidinium [place] (Tudorza -) 1 puff IH BID [facility] Last Admin: 05/24/17 11:16 Dose: 1 puff Albuterol Sulfate (Ventolin 0.083% Nebulizer Soln -) 1 amp NEB QIDR [facility] Last Admin: 05/24/17 12:05 Dose: 1 amp Aspirin (Ecotrin -) 81 mg PO DAILY [facility] Last Admin: 05/24/17 10:10 Dose: 81 mg Atorvastatin Calcium (Lipitor -) 80 mg PO DAILY [facility] Last Admin: 05/24/17 10:25 Dose: 80 mg Budesonide/Formoterol Fumarate (Symbicort 160/4.5mcg -) 2 puff IH BID [facility] Last Admin: 05/24/17 11:16 Dose: 2 puff Clopidogrel Bisulfate (Plavix -) 75 mg PO DAILY [facility] Last Admin: 05/24/17 10:11 Dose: 75 mg Collagenase (Santyl -) 1 applic TP DAILY [facility] Last Admin: 05/24/17 11:16 Dose: 1 applic Docusate Sodium (Colace -) 100 mg PO BID [facility] Last Admin: 05/24/17 10:10 Dose: 100 mg Furosemide (Lasix Injection -) 40 mg IVPUSH DAILY [facility] Last Admin: 05/24/17 10:10 Dose: 40 mg Heparin Sodium (Porcine) (Heparin -) 5,000 unit SQ TID [facility] Last Admin: 05/24/17 14:33 Dose: 5,000 unit Hydralazine HCl (Apresoline -) 10 mg PO TID [facility] Last Admin: 05/24/17 14:35 Dose: 10 mg Piperacillin Sod/Tazobactam Sod (Zosyn 3.375gm Ivpb (Pre-Docked)) 50 mls @ 100 mls/hr IVPB Q8H-IV [facility] PRN Reason: Protocol Last Admin: 05/24/17 10:12 Dose: 100 mls/hr Insulin Aspart (Novolog Vial Sliding Scale -) 1 vial SQ ACHS [facility] PRN Reason: Protocol Last Admin: 05/24/17 11:49 Dose: Not Given Insulin Detemir (Levemir Vial) 30 units SQ BIDAC [facility] Last Admin: 05/24/17 06:34 Dose: 30 units Magnesium Oxide (Mag-Ox -) 400 mg PO BID [facility] Last Admin: 05/24/17 10:09 Dose: 400 mg Metoprolol Tartrate (Lopressor -) 50 mg PO TID [facility] Last Admin: 05/24/17 14:33 Dose: 50 mg Morphine Sulfate (Ms Contin -) 60 mg PO TID [facility] Last Admin: 05/24/17 14:33 Dose: 60 mg Non-Formulary Medication (Lansoprazole [Prevacid]) 30 mg PO DAILY [facility] Ondansetron HCl (Zofran Injection) 4 mg IVPUSH Q6H PRN PRN Reason: NAUSEA AND/OR VOMITING Oxycodone HCl (Roxicodone -) 10 mg PO Q4H PRN PRN Reason: PAIN Last Admin: 05/24/17 10:08 Dose: 10 mg Polyethylene Glycol (Miralax (For Daily Use) -) 17 gm PO BID PRN PRN Reason: CONSTIPATION Last Admin: 05/22/17 11:12 Dose: 17 gm Pregabalin (Lyrica -) 25 mg PO BID [facility] Last Admin: 05/24/17 10:11 Dose: 25 mg Zolpidem Tartrate (Ambien -) 10 mg PO HS PRN PRN Reason: sleep - Objective Vital Signs: Vital Signs Temperature 98.8 F 05/24/17 14:03 Pulse Rate 65 05/24/17 14:03 Respiratory Rate 15 05/24/17 14:03 Blood Pressure 139/67 05/24/17 14:03 O2 Sat by Pulse Oximetry (%) 98 05/24/17 10:29 Constitutional: Yes: Well Nourished, No Distress, Calm Cardiovascular: Yes: Regular Rate and Rhythm. No: Gallop, Murmur, Rub Respiratory: Yes: Regular, CTA Bilaterally. No: Rales, Rhonchi, Wheezes Gastrointestinal: Yes: Normal Bowel Sounds, Soft. No: Distention, Tenderness Extremities: Yes: WNL Edema: No Labs: CBC, BMP 05/24/17 05:25 05/24/17 05:25 INR, PTT INR 1.20 (0.82-1.09) H 05/19/17 07:40 Problem List - Problems (1) Pneumonia Code(s): J18.9 - PNEUMONIA, UNSPECIFIED ORGANISM Qualifiers: Pneumonia type: due to unspecified organism Laterality: right Lung location: unspecified part of lung Qualified Code(s): J18.9 - Pneumonia, unspecified organism (2) Sepsis Code(s): A41.9 - SEPSIS, UNSPECIFIED ORGANISM (3) Renal failure (ARF), acute on chronic Code(s): N17.9 - ACUTE KIDNEY FAILURE, UNSPECIFIED N18.9 - CHRONIC KIDNEY DISEASE, UNSPECIFIED (4) CAD (coronary artery disease) Code(s): I25.10 - ATHSCL HEART DISEASE OF [place] CORONARY ARTERY W/O ANG PCTRS Qualifiers: (5) COPD (chronic obstructive pulmonary disease) Code(s): J44.9 - CHRONIC OBSTRUCTIVE PULMONARY DISEASE, UNSPECIFIED (6) Chronic pain Code(s): G89.29 - OTHER CHRONIC PAIN (7) Congestive heart failure (CHF) Code(s): I50.9 - HEART FAILURE, UNSPECIFIED Qualifiers: Congestive heart failure type: systolic Congestive heart failure chronicity: chronic Qualified Code(s): I50.22 - Chronic systolic ( congestive) heart failure (8) Diabetes mellitus Code(s): E11.9 - TYPE 2 DIABETES MELLITUS WITHOUT COMPLICATIONS Qualifiers: Diabetes mellitus type: type 2 Diabetes mellitus complication status: with circulatory complication Diabetes mellitus complication detail: with peripheral angiopathy with gangrene Diabetes mellitus shelter insulin use : with shelter use Qualified Code(s): E11.52 - Type 2 diabetes mellitus with diabetic peripheral angiopathy with gangrene; Z79.4 - salvage determiner ( current) use of insulin (9) Diabetic foot ulcer Code(s): E11.621 - TYPE 2 DIABETES MELLITUS WITH FOOT ULCER L97.509 - NON-PRESSURE CHRONIC ULCER OTH PRT UNSP FOOT W UNSP SEVERITY (10) Hypertension Code(s): I10 - ESSENTIAL (PRIMARY) HYPERTENSION Assessment/Plan (1) Pneumonia Assessment/Plan: -on vancomycin and zosyn -ID to discontinue vancomycin today -if still improving, change zosyn to oral antibiotics in 24 hours Code(s): J18.9 - PNEUMONIA, UNSPECIFIED ORGANISM Qualifiers: Pneumonia type: due to unspecified organism Laterality: right Lung location: upper lobe of lung Qualified Code(s): J18.1 - Lobar pneumonia, unspecified organism (2) Sepsis Assessment/Plan: -leukocytosis at baseline -antibiotics as above Code(s): A41.9 - SEPSIS, UNSPECIFIED ORGANISM (3) Renal failure (ARF), acute on chronic Assessment/Plan: -at baseline -monitor Code(s): N17.9 - ACUTE KIDNEY FAILURE, UNSPECIFIED N18.9 - CHRONIC KIDNEY DISEASE, UNSPECIFIED (4) CAD (coronary artery disease) Assessment/Plan: -NSTEMI -heparin gtt stopped -cardiology following and medical management -note reviewed, no ACEI secondary to renal function Code(s): I25.10 - ATHSCL HEART DISEASE OF [place] CORONARY ARTERY W/O ANG PCTRS Qualifiers: (5) COPD (chronic obstructive pulmonary disease) Assessment/Plan: -pulmonary following Code(s): J44.9 - CHRONIC OBSTRUCTIVE PULMONARY DISEASE, UNSPECIFIED (6) Chronic pain Assessment/Plan: -controlled -continue ms contin with oxycodone prn Code(s): G89.29 - OTHER CHRONIC PAIN (7) Congestive heart failure (CHF) Assessment/Plan: -continue oral lasix Code(s): I50.9 - HEART FAILURE, UNSPECIFIED Qualifiers: Congestive heart failure type: systolic Congestive heart failure chronicity: chronic Qualified Code(s): I50.22 - Chronic systolic ( congestive) heart failure (8) Diabetes mellitus Assessment/Plan: -glucose improved today -continue levemir at increased dose -monitor to see if needs further adjustment Code(s): E11.9 - TYPE 2 DIABETES MELLITUS WITHOUT COMPLICATIONS Qualifiers: Diabetes mellitus type: type 2 Diabetes mellitus complication status: with circulatory complication Diabetes mellitus complication detail: with peripheral angiopathy with gangrene Diabetes mellitus computer terminal operator insulin use : with computer terminal operator use Qualified Code(s): E11.52 - Type 2 diabetes mellitus with diabetic peripheral angiopathy with gangrene; Z79.4 - correction ( current) use of insulin (9) Diabetic foot ulcer Assessment/Plan: -healing -monitor Code(s): E11.621 - TYPE 2 DIABETES MELLITUS WITH FOOT ULCER L97.509 - NON-PRESSURE CHRONIC ULCER OTH PRT UNSP FOOT W UNSP SEVERITY (10) Hypertension Assessment/Plan: -continue lopressor and hydralazine Code(s): I10 - ESSENTIAL (PRIMARY) HYPERTENSION (11) Insomnia -increase ambien to 10mg, which is his home dose
[2017-05-24] MEDS: ZOLPIDEM TARTRATE 5 MG TABLET PO PRN (22:06)
[2017-05-25] MEDS: PIPERACILLIN/TAZOB 3.375 GM 50 ML IVPB SCH ×3 (02:54→17:38)
[2017-05-25] MEDS ORDERED: PT OWN MED DRAWER 7, Y5N ONE ×3 (03:40→21:32)
[2017-05-25] MEDS: oxyCODONE HCL 5 MG TABLET PO PRN ×5 (03:42→20:31)
[2017-05-25] MEDS ORDERED: ACETAMINOPHEN 325 MG TABLET (FP) ONE (05:07)
[2017-05-25] MEDS: ACETAMINOPHEN 325 MG TABLET (FP) PO PRN ×4 (05:12→18:29)
[2017-05-25] MEDS: METOPROLOL TARTRATE 50 MG TABLET (FP) PO SCH ×3 (05:36→21:42)
[2017-05-25] MEDS: HEPARIN NA (PORCINE) 5,000 UNITS/ML 1ML VIAL SQ SCH ×3 (05:36→21:45)
[2017-05-25] MEDS: morphine SO4 SUSTAINED ACTING 30 MG TABLET.SA PO SCH ×3 (05:37→21:41)
[2017-05-25] MEDS: hydrALAZINE HCL 10 MG TABLET PO SCH ×4 (05:38→21:45)
[2017-05-25] MEDS: ALBUTEROL SO4 0.083% IH SOL 2.5 MG/3 ML VIAL.NEB. NEB SCH ×5 (06:26→23:30)
[2017-05-25] MEDS: INSULIN DETEMIR 100 UNITS/ML MDV SQ SCH ×2 (07:04→17:38)
[2017-05-25] MEDS: INSULIN SLIDING SCALE (NOVOLOG) 1 VIAL SQ SCH ×4 (07:04→21:53)
[2017-05-25] MEDS: FUROSEMIDE 40 MG/4 ML INJECTABLE VIAL IVPUSH SCH (10:21)
[2017-05-25] MEDS: DOCUSATE SODIUM 100 MG CAPSULE (FP) PO SCH ×2 (10:21→21:44)
[2017-05-25] MEDS: ASPIRIN COATED 81 MG TABLET.EC PO SCH (10:21)
[2017-05-25] MEDS: MAGNESIUM OXIDE 400 MG TABLET (FP) PO SCH ×2 (10:22→21:42)
[2017-05-25] MEDS: ATORVASTATIN CA 80 MG TABLET (FP) PO SCH (10:22)
[2017-05-25] MEDS: PREGABALIN 25 MG CAPSULE PO SCH ×2 (10:22→21:42)
[2017-05-25] MEDS: CLOPIDOGREL BISULFATE 75 MG TABLET (FP) PO SCH (10:22)
[2017-05-25] MEDS: BUDESONIDE/FORMETEROL FUMARATE 160/4.5 mcg INHALER IH SCH ×2 (10:23→21:45)
[2017-05-25] MEDS: ACLIDINIUM BROMIDE 400 MCG/INH AERO.POWD IH SCH ×2 (10:23→21:40)
--- NOTE | 2017-05-25 10:48 | PN ---
Progress Note (short form) - Note Progress Note: Chief Complaint: [place] History of Present Illness: no cp. no abd pain like on 05/19 episode. no more sob, no orthopnea no palpitations ex cigs - Current Medication List Current Medications Generic Name Dose Route Start Last Admin Trade Name Freq PRN Reason Stop Dose Admin Acetaminophen 650 mg 05/21/17 11:21 05/25/17 10:22 Tylenol - PO 650 mg Q4H PRN Administration FEVER OR PAIN Aclidinium [place] 1 puff 05/21/17 22:00 05/25/17 10:23 Tudorza - IH 1 puff BID [facility] Administration Albuterol Sulfate 1 amp 05/21/17 12:00 05/25/17 06:26 Ventolin 0.083% Nebulizer Soln - NEB 1 amp QIDR [facility] Administration Aspirin 81 mg 05/22/17 10:00 05/25/17 10:21 Ecotrin - PO 81 mg DAILY [facility] Administration Atorvastatin Calcium 80 mg 05/22/17 10:00 05/25/17 10:22 Lipitor - PO 80 mg DAILY [facility] Administration Budesonide/Formoterol Fumarate 2 puff 05/21/17 22:00 05/25/17 10:23 Symbicort 160/4.5mcg - IH 2 puff BID [facility] Administration Clopidogrel Bisulfate 75 mg 05/22/17 10:00 05/25/17 10:22 Plavix - PO 75 mg DAILY [facility] Administration Collagenase 1 applic 05/22/17 10:00 05/24/17 11:16 Santyl - TP 1 applic DAILY [facility] Administration Docusate Sodium 100 mg 05/21/17 22:00 05/25/17 10:21 Colace - PO 100 mg BID [facility] Administration Furosemide 40 mg 05/22/17 10:00 05/25/17 10:21 Lasix Injection - IVPUSH 40 mg DAILY [facility] Administration Heparin Sodium (Porcine) 5,000 unit 05/22/17 14:00 05/25/17 05:36 Heparin - SQ 5,000 unit TID [facility] Administration Hydralazine HCl 10 mg 05/21/17 14:00 05/25/17 05:38 Apresoline - PO 10 mg TID [facility] Administration Piperacillin Sod/Tazobactam Sod 50 mls @ 100 mls/hr 05/21/17 18:00 05/25/17 10: 22 Zosyn 3.375gm Ivpb (Pre-Docked) IVPB 100 mls/hr Q8H-IV [facility] Administration Protocol Insulin Aspart 1 vial 05/21/17 16:30 05/25/17 07:04 Novolog Vial Sliding Scale - SQ Not Given ACHS [facility] Protocol Insulin Detemir 30 units 05/21/17 16:30 05/25/17 07:04 Levemir Vial SQ 30 units BIDAC [facility] Administration Magnesium Oxide 400 mg 05/21/17 22:00 05/25/17 10:22 Mag-Ox - PO 400 mg BID [facility] Administration Metoprolol Tartrate 50 mg 05/21/17 14:00 05/25/17 05:36 Lopressor - PO 50 mg TID [facility] Administration Morphine Sulfate 60 mg 05/21/17 14:00 05/25/17 05:37 Ms Contin - PO 60 mg TID [facility] Administration Non-Formulary Medication 30 mg 05/22/17 10:00 Lansoprazole [Prevacid] PO DAILY [facility] Ondansetron HCl 4 mg 05/21/17 11:21 Zofran Injection IVPUSH Q6H PRN NAUSEA AND/OR VOMITING Oxycodone HCl 10 mg 05/21/17 11:21 05/25/17 07:46 Roxicodone - PO 10 mg Q4H PRN Administration PAIN Polyethylene Glycol 17 gm 05/21/17 11:21 05/22/17 11:12 Miralax (For Daily Use) - PO 17 gm BID PRN Administration CONSTIPATION Pregabalin 25 mg 05/22/17 22:00 05/25/17 10:22 Lyrica - PO 25 mg BID [facility] Administration Zolpidem Tartrate 10 mg 05/24/17 15:29 05/24/17 22:06 Ambien - PO 10 mg HS PRN Administration sleep - Objective Vital Signs: Vital Signs Period Temp Pulse Resp BP Sys/Chandra Pulse Ox Last 24 Hr 97.7 F-98.8 F 54-66 15-22 125-148/50-81 98-98 nad no jvd rrr s1s2 no mrg cta bl nl eff aaox3 no le e/c/c abd nt nd pos bs no jaundice diaphoresis pos dp pt no carotid bruits CBC, BMP 05/24/17 05:25 05/24/17 05:25 - ....Imaging EKG: Other (tele: SR, [email or web address] 1) Echo 05/15: mod to sev decr LVEF; severe hypokinesis of all lindsey except basal segments. nl RV. mild MR/TR. no peric eff. Echo 01/2017: mild global HK, lvef 45-50, nl rv, nl rvsp, mild lae, mild tr Echo 12/2016: TDS; LVSF is "at least mildly reduced: RWM assessment tds; nl RV; nl LA; mild MR/TR; no veg seen (Gitig review: EF mod-severely decr'd, ? global (cannot accurately assess for RWMAs)--suspect EF is 35-40%.) Echo 04/2015: mod global HK; RV tds; trace AI CXR 05/21 (image reviewed): signif intersitital edema pattern persists, L effusion EKG 05/19, 7:09:18: sinus tach, old IWMI (q's) with baseline wander artifact present, possibly 0.5mm ST elev in III, avF; nonsp ST-Ts I/avL slightly increased vs prior 03/13/17. 05/19 at 7:09:53: no change 05/19 at 15:35: NSR, old IWMI; NSST-Ts V4-6 and I/avL (V4-6 new vs baseline). inferior ST elev resolved a/p: sepsis: -? PNA -BCx's neg -cont abx per ID NSTEMI: -known unrevascularized CAD as of last cath 2011 as outlined below -no cardio f/u and no known recent stress tests -NSTEMI here in setting of active infection (sx's abd pain > CP) -trop peak 3.98, trended down -on ASA and plavix from before (for recurrent CVAs)--continued here -completed 72 hrs hep gtt, no clinical evidence of ongoing ischemia -cont BB, high intensity statin as doing -echo with signif drop in prior LVEF and diffuse hypokinesis of all mid and apical segments--? left main or large wrap-around LAD plaque rupture (not typical description for Takotsubo's) -deferring cath until infectious process is resolved/stable CAD: -s/p PCI (LIBBY) to 100% occl RPDA in 2004 ([facility]) with patent prior RCA stents at that time, EF 50% then; -s/p anterior STEMI 2011 with [place] LIBBY x 2 to mid LAD then ([facility]); residual dz then included 80% prox D1 (large vessel), 95% mD1; 70%mRCA (pre and post prior stents), 70% dCFX; (also 40% RPDA; 60% pCFX; 40% mCFX;) EF then 37% with AK of apex/AL lindsey and AK of IW; -has repeatedly refused regular cardio (used to see roddy suarez, stopped going , we see him in hospital every time but he declines f/u with us in office) -no known recent stress test -meds as described isch CMP/acute syst CHF exacerbation: -mild dec lvef on most recent echo, worsened now due to acute ischemia -vol status stable on lasix 80 qd as outpt -here with mild chf likely 2/2 pna, started lasix 40 iv qd -then acute chf triggered by NSTEMI on 05/19, cont with lasix 40 iv qd for now -cont toprol, hydralazine. -per pmd office records, pt was on ramipril in past, creat went up to 2.5 so it was stopped close to 2 yrs ago. given pt's repeated failure to follow up regularly in office with us, i would not rec resuming WENDY trial as he will need very frequent outpt labs monitoring. if he decides to follow with cardio regularly, can try lower effective dose ( e.g. lisinopril 2.5) than what he was previously on, and try titrate up slowly HTN: -bp controlled -cont current meds h/o CVA: -dx'd lacunar infarct 02/10 clinically then (slurred speech) -? acute CVA/TIA 11/13, seen by neuro then--ASA added to prior plavix at that time -same meds BRANT on CKD: -cr freq fluctuates 1.5-2.9 on past admits here, most recently 1.3-1.5 in 03/15 -slightly elevated above baseline initially (sepsis? chf?)--improved now anemia: -H/H stable, observe trend yue [place]: -seen on tele here, no significant pauses, benign
--- NOTE | 2017-05-25 11:50 | PN ---
Progress Note (short form) - Note Progress Note: PULMONARY/CCM Denies shortness of breath, cough or wheezing. No fevers or chills. Last Vital Signs Temp Pulse Resp BP Pulse Ox 97.7 F 57 L 21 148/50 98 05/25/17 08:22 05/25/17 03:10 05/25/17 03:10 05/25/17 03:10 05/25/17 08:46 Gen: breathing nonlabored Heart: RRR Lung: decreased breath sounds at the bases Abd: soft, nontender Ext: no edema CBC, BMP 05/24/17 05:25 05/24/17 05:25 Active Medications Acetaminophen (Tylenol -) 650 mg PO Q4H PRN PRN Reason: FEVER OR PAIN Last Admin: 05/25/17 10:22 Dose: 650 mg Aclidinium [place] (Tudorza -) 1 puff IH BID [facility] Last Admin: 05/25/17 10:23 Dose: 1 puff Albuterol Sulfate (Ventolin 0.083% Nebulizer Soln -) 1 amp NEB QIDR [facility] Last Admin: 05/25/17 06:26 Dose: 1 amp Aspirin (Ecotrin -) 81 mg PO DAILY [facility] Last Admin: 05/25/17 10:21 Dose: 81 mg Atorvastatin Calcium (Lipitor -) 80 mg PO DAILY [facility] Last Admin: 05/25/17 10:22 Dose: 80 mg Budesonide/Formoterol Fumarate (Symbicort 160/4.5mcg -) 2 puff IH BID [facility] Last Admin: 05/25/17 10:23 Dose: 2 puff Clopidogrel Bisulfate (Plavix -) 75 mg PO DAILY [facility] Last Admin: 05/25/17 10:22 Dose: 75 mg Collagenase (Santyl -) 1 applic TP DAILY [facility] Last Admin: 05/24/17 11:16 Dose: 1 applic Docusate Sodium (Colace -) 100 mg PO BID [facility] Last Admin: 05/25/17 10:21 Dose: 100 mg Furosemide (Lasix Injection -) 40 mg IVPUSH DAILY [facility] Last Admin: 05/25/17 10:21 Dose: 40 mg Heparin Sodium (Porcine) (Heparin -) 5,000 unit SQ TID [facility] Last Admin: 05/25/17 05:36 Dose: 5,000 unit Hydralazine HCl (Apresoline -) 10 mg PO TID [facility] Last Admin: 05/25/17 05:38 Dose: 10 mg Piperacillin Sod/Tazobactam Sod (Zosyn 3.375gm Ivpb (Pre-Docked)) 50 mls @ 100 mls/hr IVPB Q8H-IV [facility] PRN Reason: Protocol Last Admin: 05/25/17 10:22 Dose: 100 mls/hr Insulin Aspart (Novolog Vial Sliding Scale -) 1 vial SQ ACHS [facility] PRN Reason: Protocol Last Admin: 05/25/17 07:04 Dose: Not Given Insulin Detemir (Levemir Vial) 30 units SQ BIDAC [facility] Last Admin: 05/25/17 07:04 Dose: 30 units Magnesium Oxide (Mag-Ox -) 400 mg PO BID [facility] Last Admin: 05/25/17 10:22 Dose: 400 mg Metoprolol Tartrate (Lopressor -) 50 mg PO TID [facility] Last Admin: 05/25/17 05:36 Dose: 50 mg Morphine Sulfate (Ms Contin -) 60 mg PO TID [facility] Last Admin: 05/25/17 05:37 Dose: 60 mg Non-Formulary Medication (Lansoprazole [Prevacid]) 30 mg PO DAILY [facility] Ondansetron HCl (Zofran Injection) 4 mg IVPUSH Q6H PRN PRN Reason: NAUSEA AND/OR VOMITING Oxycodone HCl (Roxicodone -) 10 mg PO Q4H PRN PRN Reason: PAIN Last Admin: 05/25/17 11:26 Dose: 10 mg Polyethylene Glycol (Miralax (For Daily Use) -) 17 gm PO BID PRN PRN Reason: CONSTIPATION Last Admin: 05/22/17 11:12 Dose: 17 gm Pregabalin (Lyrica -) 25 mg PO BID [facility] Last Admin: 05/25/17 10:22 Dose: 25 mg Zolpidem Tartrate (Ambien -) 10 mg PO HS PRN PRN Reason: sleep Last Admin: 05/24/17 22:06 Dose: 10 mg A/P Pneumonia Diabetic Foot Ulcer Sepsis Acute NSTEMI/CAD Acute on Chronic Systolic Heart Failure Acute on Chronic Renal Failure improving HTN DM COPD - complete antibiotics - lasix - monitor urine output, creatinine - glucose control - inhaled bronchodilators - PO as tolerated - rehab/PT - DVT prophylaxis - for cardiac catheterization per cardiology
--- NOTE | 2017-05-25 11:55 | PN ---
Progress Note, Physician Chief Complaint: Mr Scott complains of pain. Otherwise he is doing well. No cp, sob, n/v. - Current Medication List Current Medications: Active Medications Acetaminophen (Tylenol -) 650 mg PO Q4H PRN PRN Reason: FEVER OR PAIN Last Admin: 05/25/17 10:22 Dose: 650 mg Aclidinium [place] (Tudorza -) 1 puff IH BID [facility] Last Admin: 05/25/17 10:23 Dose: 1 puff Albuterol Sulfate (Ventolin 0.083% Nebulizer Soln -) 1 amp NEB QIDR [facility] Last Admin: 05/25/17 06:26 Dose: 1 amp Aspirin (Ecotrin -) 81 mg PO DAILY [facility] Last Admin: 05/25/17 10:21 Dose: 81 mg Atorvastatin Calcium (Lipitor -) 80 mg PO DAILY [facility] Last Admin: 05/25/17 10:22 Dose: 80 mg Budesonide/Formoterol Fumarate (Symbicort 160/4.5mcg -) 2 puff IH BID [facility] Last Admin: 05/25/17 10:23 Dose: 2 puff Clopidogrel Bisulfate (Plavix -) 75 mg PO DAILY [facility] Last Admin: 05/25/17 10:22 Dose: 75 mg Collagenase (Santyl -) 1 applic TP DAILY [facility] Last Admin: 05/24/17 11:16 Dose: 1 applic Docusate Sodium (Colace -) 100 mg PO BID [facility] Last Admin: 05/25/17 10:21 Dose: 100 mg Furosemide (Lasix Injection -) 40 mg IVPUSH DAILY [facility] Last Admin: 05/25/17 10:21 Dose: 40 mg Heparin Sodium (Porcine) (Heparin -) 5,000 unit SQ TID [facility] Last Admin: 05/25/17 05:36 Dose: 5,000 unit Hydralazine HCl (Apresoline -) 10 mg PO TID [facility] Last Admin: 05/25/17 05:38 Dose: 10 mg Piperacillin Sod/Tazobactam Sod (Zosyn 3.375gm Ivpb (Pre-Docked)) 50 mls @ 100 mls/hr IVPB Q8H-IV [facility] PRN Reason: Protocol Last Admin: 05/25/17 10:22 Dose: 100 mls/hr Insulin Aspart (Novolog Vial Sliding Scale -) 1 vial SQ ACHS [facility] PRN Reason: Protocol Last Admin: 05/25/17 07:04 Dose: Not Given Insulin Detemir (Levemir Vial) 30 units SQ BIDAC [facility] Last Admin: 05/25/17 07:04 Dose: 30 units Magnesium Oxide (Mag-Ox -) 400 mg PO BID [facility] Last Admin: 05/25/17 10:22 Dose: 400 mg Metoprolol Tartrate (Lopressor -) 50 mg PO TID [facility] Last Admin: 05/25/17 05:36 Dose: 50 mg Morphine Sulfate (Ms Contin -) 60 mg PO TID [facility] Last Admin: 05/25/17 05:37 Dose: 60 mg Non-Formulary Medication (Lansoprazole [Prevacid]) 30 mg PO DAILY [facility] Ondansetron HCl (Zofran Injection) 4 mg IVPUSH Q6H PRN PRN Reason: NAUSEA AND/OR VOMITING Oxycodone HCl (Roxicodone -) 10 mg PO Q4H PRN PRN Reason: PAIN Last Admin: 05/25/17 11:26 Dose: 10 mg Polyethylene Glycol (Miralax (For Daily Use) -) 17 gm PO BID PRN PRN Reason: CONSTIPATION Last Admin: 05/22/17 11:12 Dose: 17 gm Pregabalin (Lyrica -) 25 mg PO BID [facility] Last Admin: 05/25/17 10:22 Dose: 25 mg Zolpidem Tartrate (Ambien -) 10 mg PO HS PRN PRN Reason: sleep Last Admin: 05/24/17 22:06 Dose: 10 mg - Objective Vital Signs: Vital Signs Temperature 97.7 F 05/25/17 08:22 Pulse Rate 57 L 05/25/17 03:10 Respiratory Rate 21 05/25/17 03:10 Blood Pressure 148/50 05/25/17 03:10 O2 Sat by Pulse Oximetry (%) 98 05/25/17 08:46 Constitutional: Yes: No Distress, Calm, Obese Cardiovascular: Yes: Regular Rate and Rhythm. No: Gallop, Murmur, Rub Respiratory: Yes: Regular, CTA Bilaterally. No: Rales, Rhonchi, Wheezes Gastrointestinal: Yes: Normal Bowel Sounds, Soft. No: Distention, Tenderness Extremities: Yes: WNL Edema: No Labs: CBC, BMP 05/24/17 05:25 05/24/17 05:25 INR, PTT INR 1.20 (0.82-1.09) H 05/19/17 07:40 Problem List - Problems (1) Pneumonia Code(s): J18.9 - PNEUMONIA, UNSPECIFIED ORGANISM Qualifiers: Pneumonia type: due to unspecified organism Laterality: right Lung location: unspecified part of lung Qualified Code(s): J18.9 - Pneumonia, unspecified organism (2) Sepsis Code(s): A41.9 - SEPSIS, UNSPECIFIED ORGANISM (3) Renal failure (ARF), acute on chronic Code(s): N17.9 - ACUTE KIDNEY FAILURE, UNSPECIFIED N18.9 - CHRONIC KIDNEY DISEASE, UNSPECIFIED (4) CAD (coronary artery disease) Code(s): I25.10 - ATHSCL HEART DISEASE OF [place] CORONARY ARTERY W/O ANG PCTRS Qualifiers: (5) COPD (chronic obstructive pulmonary disease) Code(s): J44.9 - CHRONIC OBSTRUCTIVE PULMONARY DISEASE, UNSPECIFIED (6) Chronic pain Code(s): G89.29 - OTHER CHRONIC PAIN (7) Congestive heart failure (CHF) Code(s): I50.9 - HEART FAILURE, UNSPECIFIED Qualifiers: Congestive heart failure type: systolic Congestive heart failure chronicity: chronic Qualified Code(s): I50.22 - Chronic systolic ( congestive) heart failure (8) Diabetes mellitus Code(s): E11.9 - TYPE 2 DIABETES MELLITUS WITHOUT COMPLICATIONS Qualifiers: Diabetes mellitus type: type 2 Diabetes mellitus complication status: with circulatory complication Diabetes mellitus complication detail: with peripheral angiopathy with gangrene Diabetes mellitus termite control servicer insulin use : with termite control servicer use Qualified Code(s): E11.52 - Type 2 diabetes mellitus with diabetic peripheral angiopathy with gangrene; 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 (9) Diabetic foot ulcer Code(s): E11.621 - TYPE 2 DIABETES MELLITUS WITH FOOT ULCER L97.509 - NON-PRESSURE CHRONIC ULCER OTH PRT UNSP FOOT W UNSP SEVERITY (10) Hypertension Code(s): I10 - ESSENTIAL (PRIMARY) HYPERTENSION Assessment/Plan (1) Pneumonia Assessment/Plan: -vancomycin stopped yesterday -last day of zosyn tomorrow -no further need for antibiotics after this Code(s): J18.9 - PNEUMONIA, UNSPECIFIED ORGANISM Qualifiers: Pneumonia type: due to unspecified organism Laterality: right Lung location: upper lobe of lung Qualified Code(s): J18.1 - Lobar pneumonia, unspecified organism (2) Sepsis Assessment/Plan: -leukocytosis at baseline -antibiotics as above Code(s): A41.9 - SEPSIS, UNSPECIFIED ORGANISM (3) Renal failure (ARF), acute on chronic Assessment/Plan: -at baseline -monitor Code(s): N17.9 - ACUTE KIDNEY FAILURE, UNSPECIFIED N18.9 - CHRONIC KIDNEY DISEASE, UNSPECIFIED (4) CAD (coronary artery disease) Assessment/Plan: -NSTEMI -case d/w cardiology, planning for transfer to [facility] for cardiac cath tomorrow Code(s): I25.10 - ATHSCL HEART DISEASE OF [place] CORONARY ARTERY W/O ANG PCTRS Qualifiers: (5) COPD (chronic obstructive pulmonary disease) Assessment/Plan: -pulmonary following Code(s): J44.9 - CHRONIC OBSTRUCTIVE PULMONARY DISEASE, UNSPECIFIED (6) Chronic pain Assessment/Plan: -controlled -continue ms contin with oxycodone prn Code(s): G89.29 - OTHER CHRONIC PAIN (7) Congestive heart failure (CHF) Assessment/Plan: -continue oral lasix Code(s): I50.9 - HEART FAILURE, UNSPECIFIED Qualifiers: Congestive heart failure type: systolic Congestive heart failure chronicity: chronic Qualified Code(s): I50.22 - Chronic systolic ( congestive) heart failure (8) Diabetes mellitus Assessment/Plan: -glucose improved today -continue levemir at increased dose -monitor to see if needs further adjustment Code(s): E11.9 - TYPE 2 DIABETES MELLITUS WITHOUT COMPLICATIONS Qualifiers: Diabetes mellitus type: type 2 Diabetes mellitus complication status: with circulatory complication Diabetes mellitus complication detail: with peripheral angiopathy with gangrene Diabetes mellitus termite control servicer insulin use : with chcf use Qualified Code(s): E11.52 - Type 2 diabetes mellitus with diabetic peripheral angiopathy with gangrene; 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
[2017-05-25] MEDS ORDERED: oxyCODONE HCL 5 MG TABLET PO ONE (12:45)
[2017-05-25] MEDS: COLLAGENASE CLOSTRIDIUM HIST. 30 GRAMS TUBE TP SCH (13:21)
--- NOTE | 2017-05-25 16:48 | PN ---
Progress Note, Physician History of Present Illness: patient stable continues to improve no issues - Current Medication List Current Medications: Active Medications Acetaminophen (Tylenol -) 650 mg PO Q4H PRN PRN Reason: FEVER OR PAIN Last Admin: 05/25/17 14:56 Dose: 650 mg Aclidinium [place] (Tudorza -) 1 puff IH BID [facility] Last Admin: 05/25/17 10:23 Dose: 1 puff Albuterol Sulfate (Ventolin 0.083% Nebulizer Soln -) 1 amp NEB QIDR [facility] Last Admin: 05/25/17 12:16 Dose: 1 amp Aspirin (Ecotrin -) 81 mg PO DAILY [facility] Last Admin: 05/25/17 10:21 Dose: 81 mg Atorvastatin Calcium (Lipitor -) 80 mg PO DAILY [facility] Last Admin: 05/25/17 10:22 Dose: 80 mg Budesonide/Formoterol Fumarate (Symbicort 160/4.5mcg -) 2 puff IH BID [facility] Last Admin: 05/25/17 10:23 Dose: 2 puff Clopidogrel Bisulfate (Plavix -) 75 mg PO DAILY [facility] Last Admin: 05/25/17 10:22 Dose: 75 mg Collagenase (Santyl -) 1 applic TP DAILY [facility] Last Admin: 05/25/17 13:21 Dose: 1 applic Docusate Sodium (Colace -) 100 mg PO BID [facility] Last Admin: 05/25/17 10:21 Dose: 100 mg Furosemide (Lasix -) 40 mg PO BID@0600,1400 [facility] Heparin Sodium (Porcine) (Heparin -) 5,000 unit SQ TID [facility] Last Admin: 05/25/17 13:22 Dose: 5,000 unit Hydralazine HCl (Apresoline -) 10 mg PO TID [facility] Last Admin: 05/25/17 13:22 Dose: 10 mg Piperacillin Sod/Tazobactam Sod (Zosyn 3.375gm Ivpb (Pre-Docked)) 50 mls @ 100 mls/hr IVPB Q8H-IV [facility] PRN Reason: Protocol Last Admin: 05/25/17 10:22 Dose: 100 mls/hr Insulin Aspart (Novolog Vial Sliding Scale -) 1 vial SQ ACHS [facility] PRN Reason: Protocol Last Admin: 05/25/17 12:18 Dose: Not Given Insulin Detemir (Levemir Vial) 30 units SQ BIDAC [facility] Last Admin: 05/25/17 07:04 Dose: 30 units Magnesium Oxide (Mag-Ox -) 400 mg PO BID [facility] Last Admin: 05/25/17 10:22 Dose: 400 mg Metoprolol Tartrate (Lopressor -) 50 mg PO TID [facility] Last Admin: 05/25/17 13:23 Dose: 50 mg Morphine Sulfate (Ms Contin -) 60 mg PO TID [facility] Last Admin: 05/25/17 13:23 Dose: 60 mg Non-Formulary Medication (Lansoprazole [Prevacid]) 30 mg PO DAILY [facility] Ondansetron HCl (Zofran Injection) 4 mg IVPUSH Q6H PRN PRN Reason: NAUSEA AND/OR VOMITING Oxycodone HCl (Roxicodone -) 30 mg PO Q4H PRN PRN Reason: PAIN Last Admin: 05/25/17 16:06 Dose: 30 mg Polyethylene Glycol (Miralax (For Daily Use) -) 17 gm PO BID PRN PRN Reason: CONSTIPATION Last Admin: 05/22/17 11:12 Dose: 17 gm Pregabalin (Lyrica -) 25 mg PO BID [facility] Last Admin: 05/25/17 10:22 Dose: 25 mg Zolpidem Tartrate (Ambien -) 10 mg PO HS PRN PRN Reason: sleep Last Admin: 05/24/17 22:06 Dose: 10 mg - Objective Vital Signs: Vital Signs Temperature 97.6 F 05/25/17 14:09 Pulse Rate 68 05/25/17 14:09 Respiratory Rate 21 05/25/17 14:09 Blood Pressure 138/68 05/25/17 14:09 O2 Sat by Pulse Oximetry (%) 98 05/25/17 15:32 Constitutional: Yes: No Distress, Calm Cardiovascular: Yes: S1, S2 Respiratory: Yes: Regular, CTA Bilaterally Gastrointestinal: Yes: Normal Bowel Sounds, Soft Musculoskeletal: Yes: WNL Extremities: Yes: WNL Wound/Incision: Yes: Dressing Dry and Intact Neurological: Yes: Alert, Oriented Labs: CBC, BMP 05/24/17 05:25 05/24/17 05:25 INR, PTT INR 1.20 (0.82-1.09) H 05/19/17 07:40 Assessment/Plan Problem List - Problems (1) Pneumonia Code(s): J18.9 - PNEUMONIA, UNSPECIFIED ORGANISM Qualifiers: Pneumonia type: due to unspecified organism Laterality: right Lung location: upper lobe of lung Qualified Code(s): J18.1 - Lobar pneumonia, unspecified organism (2) Sepsis Code(s): A41.9 - SEPSIS, UNSPECIFIED ORGANISM (3) Renal failure (ARF), acute on chronic Code(s): N17.9 - ACUTE KIDNEY FAILURE, UNSPECIFIED N18.9 - CHRONIC KIDNEY DISEASE, UNSPECIFIED (4) CAD (coronary artery disease) Code(s): I25.10 - ATHSCL HEART DISEASE OF [place] CORONARY ARTERY W/O ANG PCTRS Qualifiers: (5) COPD (chronic obstructive pulmonary disease) Code(s): J44.9 - CHRONIC OBSTRUCTIVE PULMONARY DISEASE, UNSPECIFIED (6) Chronic pain Code(s): G89.29 - OTHER CHRONIC PAIN (7) Congestive heart failure (CHF) Code(s): I50.9 - HEART FAILURE, UNSPECIFIED Qualifiers: Congestive heart failure type: systolic Congestive heart failure chronicity: chronic Qualified Code(s): I50.22 - Chronic systolic ( congestive) heart failure (8) Diabetes mellitus Code(s): E11.9 - TYPE 2 DIABETES MELLITUS WITHOUT COMPLICATIONS Qualifiers: Diabetes mellitus type: type 2 Diabetes mellitus complication status: with circulatory complication Diabetes mellitus complication detail: with peripheral angiopathy with gangrene Diabetes mellitus ad terminal makeup operator insulin use : with ad terminal makeup operator use Qualified Code(s): E11.52 - Type 2 diabetes mellitus with diabetic peripheral angiopathy with gangrene; 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
[2017-05-25] MEDS: ZOLPIDEM TARTRATE 5 MG TABLET PO PRN (21:42)
[2017-05-26] MEDS: PIPERACILLIN/TAZOB 3.375 GM 50 ML IVPB SCH (01:20)
[2017-05-26] MEDS: oxyCODONE HCL 5 MG TABLET PO PRN (01:21)
[2017-05-26 02:39] VITALS: TEMP 98.4
[2017-05-26] MEDS: ACETAMINOPHEN 325 MG TABLET (FP) PO PRN (04:38)
[2017-05-26] MEDS ORDERED: FUROSEMIDE 40 MG TABLET (FP) PO SCH (06:00)
[2017-05-26] MEDS: morphine SO4 SUSTAINED ACTING 30 MG TABLET.SA PO SCH (06:14)
[2017-05-26] MEDS: METOPROLOL TARTRATE 50 MG TABLET (FP) PO SCH (06:15)
[2017-05-26] MEDS: HEPARIN NA (PORCINE) 5,000 UNITS/ML 1ML VIAL SQ SCH (06:15)
[2017-05-26] MEDS: hydrALAZINE HCL 10 MG TABLET PO SCH (06:16)
[2017-05-26 06:26] LABS: BASOPHIL 1.6 % (0-2.0); EOSINOPHIL 2.3 % (0-4.5); MCH 27.6 pg (25.7-33.7); MCHC 31.8 g/dl (32.0-35.9); MEAN CELL VOLUME 86.9 fl (80-96); MEAN PLT VOLUME 8.6 fl (7.5-11.1); NEUTROPHILS 78.2 % (42.8-82.8); PLATELET COUNT 392 K/MM3 (134-434); RDW 17.1 % (11.9-15.9); WHITE BLOOD COUNT 16.1 K/mm3 (4.0-10.0)
[2017-05-26 06:28] VITALS: BP 143/68; PULSE 62
[2017-05-26] MEDS: INSULIN DETEMIR 100 UNITS/ML MDV SQ SCH (06:29)
[2017-05-26] MEDS: INSULIN SLIDING SCALE (NOVOLOG) 1 VIAL SQ SCH (06:29)
[2017-05-26] MEDS: ALBUTEROL SO4 0.083% IH SOL 2.5 MG/3 ML VIAL.NEB. NEB SCH (06:30)
[2017-05-26] MEDS ORDERED: PT OWN MED DRAWER 7, Y5N ONE (06:53)
[2017-05-26 07:09] LABS: ANION GAP 6 (8-16); CALCIUM 8.4 mg/dL (8.5-10.1); CO2 33 mmol/L (21-32); CREATININE 1.6 mg/dL (0.7-1.3); GLUCOSE,RANDOM 102 mg/dL (74-106); MAGNESIUM 2.4 mg/dL (1.8-2.4); PHOSPHOROUS 4.3 mg/dL (2.5-4.9)
--- NOTE | 2017-05-26 09:54 | DS ---
Physical Examination Vital Signs: Vital Signs Temperature 98.4 F 05/26/17 06:00 Pulse Rate 62 05/26/17 06:00 Respiratory Rate 14 05/26/17 06:00 Blood Pressure 143/68 05/26/17 06:00 O2 Sat by Pulse Oximetry (%) 95 05/26/17 08:30 Labs: CBC, BMP 05/26/17 05:15 05/26/17 05:15 Discharge Summary Reason For Visit: PNEUMONIA Current Active Problems Chest pain (Acute) - Instructions Referrals: Vin Isbell MD [Primary Care Provider] - Disposition: TRANSFER ACUTE CARE/OTHER HOSP - Home Medications Comprehensive Discharge Medication List: Ambulatory Orders Clopidogrel Bisulfate [Plavix -] 75 mg PO DAILY #20 tablet 02/19/14 Aspirin [Ecotrin] 81 mg PO DAILY 04/29/15 Temazepam [Restoril -] 30 mg PO BID 08/24/15 Docusate Sodium [Colace -] 100 mg PO BID capsule 08/26/15 Hydralazine HCl [Apresoline -] 10 mg PO BID #180 tablet 08/14/16 Polyethylene Glycol 3350 [Miralax 119 gm Btl -] 17 gm PO BID PRN #0 bottle 08/14 Magnesium Oxide [Mag-Ox -] 400 mg PO BID #60 tablet 01/27/17 Furosemide [Lasix -] 80 mg PO DAILY 02/21/17 Lansoprazole [Prevacid] 30 mg PO DAILY 03/13/17 Metoprolol Tartrate 50 mg PO DAILY 03/13/17 Pregabalin [Lyrica] 50 mg PO BID 03/13/17 Zolpidem Tartrate [Ambien] 10 mg PO HS PRN 03/13/17 Morphine *Sr* [MS Contin -] 60 mg PO Q8H tab.sa MDD 180mg 03/20/17 Collagenase Clostridium Hist. [Santyl] 1 applic TP DAILY #90 oint...g. 04/04/17 Insulin (Levemir) [Levemir Vial] 50 units SQ BID 04/12/17 Levofloxacin [Levaquin] 1 tab PO DAILY 05/16/17
== END 2017-05-26 09:23 | disposition short-term general hospital (02) | DRG 871 ==
LOC: JER 03:53 → JERBED 05:31 → J7W 07:44 → JICU 05-19 07:25 → J2W 05-21 21:30
PROVIDERS: ADMIT Specialist; ATTEND Specialist
DX: A41.9 Sepsis, unspecified organism (principal); J18.9 Pneumonia, unspecified organism; I21.4 Non-ST elevation (NSTEMI) myocardial infarction; I50.23 Acute on chronic systolic (congestive) heart failure; N17.9 Acute kidney failure, unspecified; I13.0 Hypertensive heart and chronic kidney disease with heart failure and stage 1 through stage 4 chronic kidney disease, or unspecified chronic kidney disease; I25.10 Atherosclerotic heart disease of native coronary artery without angina pectoris; J44.9 Chronic obstructive pulmonary disease, unspecified; G89.29 Other chronic pain; E11.621 Type 2 diabetes mellitus with foot ulcer; L97.529 Non-pressure chronic ulcer of other part of left foot with unspecified severity; L97.519 Non-pressure chronic ulcer of other part of right foot with unspecified severity; Z79.4 Long term (current) use of insulin; R07.9 Chest pain, unspecified; Z98.61 Coronary angioplasty status; G47.00 Insomnia, unspecified; I25.5 Ischemic cardiomyopathy; E11.22 Type 2 diabetes mellitus with diabetic chronic kidney disease; Z86.73 Personal history of transient ischemic attack (TIA), and cerebral infarction without residual deficits; D64.9 Anemia, unspecified; Z87.891 Personal history of nicotine dependence; N18.2 Chronic kidney disease, stage 2 (mild)
CPT/HCPCS: 11042; 11045; 36415; 70450-TC; 71010-TC; 74000-TC; 74176-TC; 80048; 80053; 81003; 81015; 82550; 82803; 83605; 83735; 83880; 84100; 84484; 85025; 85027; 85610; 85730; 86850; 86900; 86901; 87040; 87086; 87899; 93005; 93010; 93306-TC; 94640; 94660; 97116-GP; 97161-GP; 99285-25; G0277; J1644

== ENCOUNTER 2017-06-04 18:23 | Inpatient (IN) | payer OTHER ==
[2017-06-04] MEDS ORDERED: ACETAMINOPHEN 325 MG TABLET (FP) PO ONE (18:41)
[2017-06-04] MEDS ORDERED: ACETAMINOPHEN 325 MG TABLET (FP) ONE (19:13)
[2017-06-04 19:21] LABS: VENOUS PH 7.31 (7.32-7.42)
[2017-06-04 19:22] LABS: VENOUS BLOOD GAS HCO3 25.7 meq/L (19-25)
[2017-06-04 19:26] LABS: BASOPHIL 0.5 % (0-2.0); EOSINOPHIL 1.1 % (0-4.5); MCH 28.1 pg (25.7-33.7); MCHC 31.6 g/dl (32.0-35.9); MEAN CELL VOLUME 88.7 fl (80-96); MEAN PLT VOLUME 8.2 fl (7.5-11.1); NEUTROPHILS 86.3 % (42.8-82.8); PLATELET COUNT 351 K/MM3 (134-434); WHITE BLOOD COUNT 12.3 K/mm3 (4.0-10.0)
[2017-06-04 19:30] LABS: URINE APPEARANCE CLEAR; URINE BILIRUBIN NEGATIVE (NEGATIVE); URINE BLOOD NEGATIVE (NEGATIVE); URINE COLOR STRAW; URINE GLUCOSE (UA) NEGATIVE (NEGATIVE); URINE KETONE NEGATIVE (NEGATIVE); URINE LEUK ESTERASE NEGATIVE (NEGATIVE); URINE NITRITE NEGATIVE (NEGATIVE); URINE PROTEIN NEGATIVE (NEGATIVE); URINE UROBILINOGEN NEGATIVE mg/dL (0.2-1.0)
--- NOTE | 2017-06-04 19:34 | PDOC ---
History of Present Illness - General History Source: Patient Exam Limitations: No Limitations - History of Present Illness Initial Comments: 06/04/17 20:14 The patient is a 67 year old male with a significant past medical history of diabetes, COPD (on 2L O2 at home),neuropathy, CKD, CVA (10/2014 without residual deficits), CAD s/p stents x 5, MA, ischemic CM with systolic CHF who presents to the ED with complaints of shortness of breath for several weeks. The patient was seen in the ED a week and a half ago for a myocardial infarction and transferred to [facility] and told to follow up with his compliance testing analyst for a triple bypass 3 days ago. He states he did not go to his compliance testing analyst appointment due to present symptoms. Patient reports shortness of breath at rest , worsened with exertion for multiple weeks. He notes his shortness of breath is worsened today and states he couldnt move because of how winded he got when he moved around. Patient reports generalized weakness associated with present symptoms. Patient also reports a history of pneumonia 3 weeks ago. Denies chest pain or palpitations. Denies fever. Denies cough. Denies nausea, vomiting, or diarrhea. Denies bowel or urinary changes. Social hx: The patient is a former smoker, 5 packs per day for 45 years. (quit a week ago). 5 packs per day for 45 years quit last week <Bijal Tejeda - Last Filed: 06/04/17 21:48> <Heidy Valdez - Last Filed: 06/04/17 21:56> - General Chief Complaint: Shortness of Breath Stated Complaint: DIFFICULTY BREATHING,WEAKNESS Time Seen by Provider: 06/04/17 19:23 Past History <Bijal Tejeda - Last Filed: 06/04/17 21:48> - Past Medical History Anemia: No Asthma: No Cancer: No Cardiac Disorders: Yes (9 stents, MA, CAD) CVA: Yes (CVA IN 2015 W/O DEFICIT) COPD: Yes CHF: No Dementia: No Diabetes: Yes (IDDM) GI Disorders: Yes (colitis NOW CONSTIPATION) Disorders: Yes (ON FLOMAX; EDEMA) HTN: Yes Hypercholesterolemia: Yes Kidney Stones: Yes Liver Disease: No Suicide Attempt (Hx): No Seizures: No Thyroid Disease: No - Surgical History Abdominal Surgery: No Appendectomy: No Cardiac Surgery: Yes (stents x 9) Cholecystectomy: No Lung Surgery: No Neurologic Surgery: No Orthopedic Surgery: No - Immunization History Immunization Up to Date: No - Psycho/Social/Smoking Cessation Hx Anxiety: No Suicidal Ideation: No Smoking Status: No Smoking History: Former smoker Have you smoked in the past 12 months: No Number of Cigarettes Smoked Daily: 30 If you are a former smoker, when did you quit?: 2017 Cigars Per Day: 0 Information on smoking cessation initiated: No 'Breaking Loose' booklet given: 01/12/17 Hx Alcohol Use: No Drug/Substance Use Hx: No Substance Use Type: None Hx Substance Use Treatment: No <NassefEdumna - Last Filed: 06/04/17 21:56> - Past Medical History Allergies/Adverse Reactions: Allergies Allergy/AdvReac Type Severity Reaction Status Date / Time pantoprazole sodium Allergy Verified 05/17/17 05:42 [From Protonix] Home Medications: Ambulatory Orders Aspirin [Ecotrin] 81 mg PO DAILY 04/29/15 Temazepam [Restoril -] 30 mg PO BID 08/24/15 Docusate Sodium [Colace -] 100 mg PO BID capsule 08/26/15 Hydralazine HCl [Apresoline -] 10 mg PO BID #180 tablet 08/14/16 Polyethylene Glycol 3350 [Miralax 119 gm Btl -] 17 gm PO BID PRN #0 bottle 08/14 Magnesium Oxide [Mag-Ox -] 400 mg PO BID #60 tablet 01/27/17 Furosemide [Lasix -] 80 mg PO DAILY 02/21/17 Lansoprazole [Prevacid] 30 mg PO DAILY 03/13/17 Metoprolol Tartrate 50 mg PO DAILY 03/13/17 Pregabalin [Lyrica] 50 mg PO BID 03/13/17 Zolpidem Tartrate [Ambien] 10 mg PO HS PRN 03/13/17 Collagenase Clostridium Hist. [Santyl] 1 applic TP DAILY #90 oint...g. 04/04/17 Insulin (Levemir) [Levemir Vial] 50 units SQ BID 04/12/17 Atorvastatin Ca [Lipitor] 40 mg PO HS 06/04/17 Clopidogrel Bisulfate [Plavix -] 75 mg PO DAILY 06/04/17 Hydrocodone/Acetaminophen [Vicodin Hp 10-300 mg Tablet] 1 each PO QID 06/04/17 Insulin (Levemir) [Levemir Flexpen -] 50 units SQ BID 06/04/17 Insulin Aspart [Novolog] 0 unit SQ AC 06/04/17 Isosorbide Mononitrate [Isosorbide Mononitrate ER] 30 mg PO DAILY 06/04/17 Morphine *Sr* [MS Contin -] 120 mg PO Q8H MDD 180mg 06/04/17 Oxycodone HCl 10 mg PO QID 06/04/17 Review of Systems - Review of Systems Able to Perform ROS?: Yes Comments:: 06/04/17 20:14 GENERAL/CONSTITUTIONAL: +generalized weakness. No fever. HEAD, EYES, EARS, NOSE AND THROAT: No change in vision. No ear pain or discharge. No sore throat. CARDIOVASCULAR: No chest pain or shortness of breath. RESPIRATORY: + shortness of breath,. No cough, wheezing, or hemoptysis. GASTROINTESTINAL: No nausea, vomiting, diarrhea or constipation. GENITOURINARY: No dysuria, frequency, or change in urination. MUSCULOSKELETAL: No joint or muscle swelling or pain. No neck or back pain. SKIN: No rash NEUROLOGIC: No headache, vertigo, loss of consciousness, or change in strength/ sensation. ENDOCRINE: No increased thirst. No abnormal weight change. HEMATOLOGIC/LYMPHATIC: No anemia, easy bleeding, or history of blood clots. ALLERGIC/IMMUNOLOGIC: No hives or skin allergy. All Other Systems: Reviewed and Negative <Bijal Tejeda - Last Filed: 06/04/17 21:48> *Physical Exam - Vital Signs Last Vital Signs Temp Pulse Resp BP Pulse Ox 100.7 F H 82 24 126/61 93 L 06/04/17 18:23 06/04/17 19:47 06/04/17 19:47 06/04/17 19:47 06/04/17 19:47 - Physical Exam Comments: 06/04/17 20:14 GENERAL: In no acute distress, speaking in full sentences, obese . Awake, alert , and fully oriented. HEAD: No signs of trauma EYES: PERRLA, EOMI, sclera anicteric, conjunctiva clear ENT: Auricles normal inspection, hearing grossly normal, nares patent, oropharynx clear without exudates. Moist mucosa NECK: Normal ROM, supple, no lymphadenopathy, JVD, or masses LUNGS: + wheezing on expiration, breath sounds equal. no crackles HEART: Regular rate and rhythm, normal S1 and S2, no murmurs, rubs or gallops ABDOMEN: Soft, nontender, normoactive bowel sounds. No guarding, no rebound. No masses EXTREMITIES: Normal range of motion, no edema. No clubbing or cyanosis. No cords, erythema, or tenderness NEUROLOGICAL: Normal speech SKIN: Warm, Dry, normal turgor, no rashes or lesions noted. <Bijal Tejeda - Last Filed: 06/04/17 21:48> - Vital Signs Last Vital Signs Temp Pulse Resp BP Pulse Ox 100.7 F H 93 H 18 125/73 93 L 06/04/17 18:23 06/04/17 18:23 06/04/17 18:23 06/04/17 18:23 06/04/17 18:23 <Heidy Valdez - Last Filed: 06/04/17 21:56> Heart Score/ECG Review #1 06/04/17 19:56 Normal Sinus rate at 85 Left axis deviation No ST elevation Submillimeter ST depression in the 1 and AVL which are unchanged from 05/19/17 Reported by: Dr. Valdez <Bijal Tejeda - Last Filed: 06/04/17 21:48> - History History: Moderately suspicious - Electrocardiogram EKG: Non specific repolarization disturbance - Age Age: >/= 65 - Risk Factors Risk Factors Heart Score: Yes Hx Hypertension, Yes Hx Diabetes, Yes Smoking History, Yes Hx Obesity Based on the list above the patient has:: >/=3 risk factors or Hx atherosclerotic disease - Troponin Troponin: </= normal limit - Score Heart Score - Total: 6 <Heidy Valdez - Last Filed: 06/04/17 21:56> ED Treatment Course - LABORATORY CBC & Chemistry Diagram: 06/04/17 19:00 06/04/17 19:00 - ADDITIONAL ORDERS Additional order review: Laboratory Results 06/04/17 06/04/17 06/04/17 19:21 19:20 19:00 INR 1.11 VBG pH 7.31 L POC VBG pCO2 53.2 H POC VBG pO2 43.4 D Mixed VBG HCO3 25.7 H Urine Color Straw Urine Appearance Clear Urine pH 5.0 Urine Protein Negative Urine Glucose (UA) Negative Urine Ketones Negative Urine Blood Negative Urine Nitrite Negative Urine Bilirubin Negative Urine Urobilinogen Negative Ur Leukocyte Esterase Negative 06/04/17 19:00 RBC 3.05 L MCV 88.7 MCHC 31.6 L RDW 17.0 H MPV 8.2 Neutrophils % 86.3 H Lymphocytes % 6.0 L D Monocytes % 6.1 Eosinophils % 1.1 Basophils % 0.5 - RADIOLOGY Radiograph Interpretation: 06/04/17 21:45 EXAM: X-ray chest IMPRESSION: Heart size upper limits normal, unchanged. Diffuse bilateral interstitial opacities redemonstrated, similar to prior. May be from pulmonary interstitial edema or interstitial lung disease. New patchy right lung base and opacity from pneumonia or pulmonary edema. Unchanged mild bilateral pleural thickening. No large pleural effusion. No acute bony abnormality. REPORTED BY: Imaging continuous mining machine coal miner, Michael Khalil D.O. - Medications Given in the ED: ED Medications Discontinued Medications Generic Name Dose Route Start Last Admin Trade Name Freq PRN Reason Stop Dose Admin Acetaminophen 650 mg 06/04/17 18:41 06/04/17 19:21 Tylenol - PO 06/04/17 18:42 650 mg ONCE ONE Administration <Bijal Tejeda - Last Filed: 06/04/17 21:48> - LABORATORY CBC & Chemistry Diagram: 06/04/17 19:00 06/04/17 19:00 - ADDITIONAL ORDERS Additional order review: Laboratory Results 06/04/17 19:20 VBG pH 7.31 L POC VBG pCO2 53.2 H POC VBG pO2 43.4 D Mixed VBG HCO3 25.7 H 06/04/17 19:00 RBC 3.05 L MCV 88.7 MCHC 31.6 L RDW 17.0 H MPV 8.2 Neutrophils % 86.3 H Lymphocytes % 6.0 L D Monocytes % 6.1 Eosinophils % 1.1 Basophils % 0.5 - Medications Given in the ED: ED Medications Discontinued Medications Generic Name Dose Route Start Last Admin Trade Name Freq PRN Reason Stop Dose Admin Acetaminophen 650 mg 06/04/17 18:41 06/04/17 19:21 Tylenol - PO 06/04/17 18:42 650 mg ONCE ONE Administration <Heidy Valdez - Last Filed: 06/04/17 21:56> Medical Decision Making - Medical Decision Making 06/04/17 21:[address] Isbell at 21:48. <Bijal Tejeda - Last Filed: 06/04/17 21:48> - Medical Decision Making 06/04/17 20:53 67yo M extensive hx cardiac disease, DM, CHF, COPD p/w progressive TALLEY. DDx includes ACS vs PNA vs COPD exac vs PE. Pt has taken full dose of ASA and plavix today. -labs -cxr -CTA (if creatinine permits) -call Dr. Orozco -call Dr. Isbell -admit 06/04/17 21:52 Creatinine too elevated for PE study. CXR with new infiltrate on the R which likely explains pt's SOB and fever here to 100.9. Will treat for HCAP given recent admission to [facility]. Spoke with Dr. Vin Isbell (pt's PMD) and discussed results and plan - he will admit the patient. <Heidy Valdez - Last Filed: 06/04/17 21:56> *DC/Admit/Observation/Transfer - Attestations Scribe Attestion: 06/04/17 19:57 Documentation prepared by Bijal Tejeda, acting as medical records coder for Heidy Valdez MD <Bijal Tejeda - Last Filed: 06/04/17 21:48> - Discharge Dispostion Admit: Yes - Attestations Physician Attestion: 06/04/17 21:56 I, Dr. Heidy Valdez MD, attest that this document has been prepared under my direction and personally reviewed by me in its entirety. I further attest, that it accurately reflects all work, treatment, procedures and medical decision -making performed by me. <Heidy Valdez - Last Filed: 06/04/17 21:56> - Discharge Dispostion Condition at time of disposition: Stable - Referrals Referrals: Vin Isbell MD [Primary Care Provider] -
[2017-06-04 19:37] LABS: INR 1.11 (0.82-1.09); PROTHROMBIN TIME (PATIENT) 12.2 SEC (9.98-11.88)
[2017-06-04] MEDS ORDERED: morphine CARPU-JECT 4 MG/1 ML DISP.SYRIN IVPUSH ONE (19:48)
[2017-06-04] MEDS ORDERED: morphine CARPU-JECT 4 MG/1 ML DISP.SYRIN ONE (19:53)
[2017-06-04 19:57] LABS: ALBUMIN 2.6 g/dl (3.4-5.0); ANION GAP 5 (8-16); BILIRUBIN,TOTAL 0.2 mg/dL (0.2-1.0); CALCIUM 8.9 mg/dL (8.5-10.1); CO2 28 mmol/L (21-32); CREATININE 1.8 mg/dL (0.7-1.3); GLUCOSE,RANDOM 165 mg/dL (74-106); SGOT/AST 7 U/L (15-37); SGPT/ALT 13 U/L (12-78); TOT PROT 6.1 g/dl (6.4-8.2)
[2017-06-04 20:00] LABS: ALK PHOS 98 U/L (45-117); CPK 15 IU/L (39-308); TROPONIN I < 0.02 ng/ml (0.00-0.05)
[2017-06-04] MEDS ORDERED: VANCOMYCIN 1,000 MG in DEXTROSE 5%-WATER - 250 ML IVPB ONE (21:45)
[2017-06-04] MEDS ORDERED: PIPERACILLIN/TAZOB 4.5 GM 4.5 GM in DEXTROSE 5%-WATER - 100 ML IVPB ONE (21:46)
[2017-06-04] MEDS ORDERED: AZITHROMYCIN IVPB 500 MG in DEXTROSE 5%-WATER - 250 ML IVPB ONE (21:47)
[2017-06-04] MEDS ORDERED: PIPERACILLIN/TAZOB 4.5 GM 100 ML IVPB ONE (22:02)
[2017-06-04] MEDS ORDERED: ZOLPIDEM TARTRATE 5 MG TABLET PO PRN (22:37)
[2017-06-04] MEDS ORDERED: POLYETHYLENE GLYCOL 3350 119 GM BTL PO PRN (22:37)
[2017-06-04] MEDS ORDERED: FUROSEMIDE 40 MG/4 ML INJECTABLE VIAL ONE (23:02)
[2017-06-04] MEDS: FUROSEMIDE 40 MG/4 ML INJECTABLE VIAL IVPUSH ONE ×2 (23:13→23:15)
[2017-06-04] MEDS ORDERED: ZOLPIDEM TARTRATE 5 MG TABLET ONE (23:36)
[2017-06-05] MEDS ORDERED: morphine SO4 SUSTAINED ACTING 100 MG TABLET.SA PO SCH ×2 (06:00→14:00)
[2017-06-05] MEDS: INSULIN SLIDING SCALE (NOVOLOG) 1 VIAL SQ SCH ×4 (06:37→22:16)
[2017-06-05 06:53] LABS: MCH 28.6 pg (25.7-33.7); MCHC 32.5 g/dl (32.0-35.9); MEAN CELL VOLUME 87.9 fl (80-96); PLATELET COUNT 365 K/MM3 (134-434); RDW 16.9 % (11.9-15.9); WHITE BLOOD COUNT 10.2 K/mm3 (4.0-10.0)
[2017-06-05 07:23] LABS: CPK 13 IU/L (39-308); TROPONIN I < 0.02 ng/ml (0.00-0.05)
[2017-06-05] MEDS: INSULIN DETEMIR 100 UNITS/ML MDV SQ SCH ×2 (08:45→17:10)
[2017-06-05] MEDS: ASPIRIN COATED 81 MG TABLET.EC PO SCH (09:15)
[2017-06-05] MEDS: DOCUSATE SODIUM 100 MG CAPSULE (FP) PO SCH ×2 (09:15→22:17)
[2017-06-05] MEDS: hydrALAZINE HCL 10 MG TABLET PO SCH ×2 (09:15→22:17)
[2017-06-05] MEDS: ISOSORBIDE MONONITRATE 30 MG TAB.SR.24H (FP) PO SCH (09:15)
[2017-06-05] MEDS: MAGNESIUM OXIDE 400 MG TABLET (FP) PO SCH ×2 (09:16→22:17)
[2017-06-05] MEDS: CLOPIDOGREL BISULFATE 75 MG TABLET (FP) PO SCH (09:16)
[2017-06-05] MEDS: ENOXAPARIN NA (PORCINE) 40 MG/0.4 ML DISP.SYRIN SQ SCH (09:16)
[2017-06-05] MEDS: PANTOPRAZOLE 40 MG TABLET (FP) PO SCH (09:16)
[2017-06-05] MEDS ORDERED: PREGABALIN 50 MG CAPSULE ONE (09:19)
[2017-06-05] MEDS: PREGABALIN 25 MG CAPSULE PO SCH ×2 (09:19→22:18)
[2017-06-05] MEDS: COLLAGENASE CLOSTRIDIUM HIST. 30 GRAMS TUBE TP SCH (09:30)
[2017-06-05] MEDS ORDERED: PIPERACILLIN/TAZOB 2.25 GM 2.25 GM in DEXTROSE 5%-WATER - 50 ML IVPB SCH (10:00)
[2017-06-05] MEDS ORDERED: METOPROLOL TARTRATE 50 MG TABLET (FP) PO SCH ×2 (10:00→14:00)
--- NOTE | 2017-06-05 10:12 | CON.CARD ---
Consult Consult Specialty:: cardio Referred by:: dian Reason for Consultation:: acute resp failure - History of Present Illness Chief Complaint: sob History of Present Illness: 67 yo male presented with acute on chronic sob. described sob ongoing for few weeks, much worse on DOA--worsened with any activity declines any wheezing or cough/sputum, sore throat. no cp/pressure/heaviness or epigastric pain (prior recent IN sx) pt states he declined cabg b/c he had the infection in lungs. 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 No: AFIB Pulmonary: Yes: COPD Gastrointestinal: Yes: Other (Colitis) Renal/: Yes: Renal Inusuff, Other (hyperkalemia) Psych: Yes: Addictions Musculoskeletal: Yes: Other (Lumbar radiculopathy) Endocrine: Yes: Diabetes Mellitus - Past Surgical History Past Surgical History: Yes: Stent - Alcohol/Substance Use Hx Alcohol Use: No History of Substance Use: reports: None - Smoking History Smoking history: Former smoker Have you smoked in the past 12 months: No Aproximately how many cigarettes per day: 30 If you are a former smoker, when did you quit?: 2017 - Social History Usual Living Arrangement: With Spouse ADL: Independent History of Recent Travel: No Home Medications - Allergies Allergies/Adverse Reactions: Allergies Allergy/AdvReac Type Severity Reaction Status Date / Time pantoprazole sodium Allergy Verified 05/17/17 05:42 [From Protonix] - Home Medications Home Medications: Ambulatory Orders Aspirin [Ecotrin] 81 mg PO DAILY 04/29/15 Temazepam [Restoril -] 30 mg PO BID 08/24/15 Docusate Sodium [Colace -] 100 mg PO BID capsule 08/26/15 Hydralazine HCl [Apresoline -] 10 mg PO BID #180 tablet 08/14/16 Polyethylene Glycol 3350 [Miralax 119 gm Btl -] 17 gm PO BID PRN #0 bottle 08/14 Magnesium Oxide [Mag-Ox -] 400 mg PO BID #60 tablet 01/27/17 Furosemide [Lasix -] 80 mg PO DAILY 02/21/17 Lansoprazole [Prevacid] 30 mg PO DAILY 03/13/17 Metoprolol Tartrate 50 mg PO DAILY 03/13/17 Pregabalin [Lyrica] 50 mg PO BID 03/13/17 Zolpidem Tartrate [Ambien] 10 mg PO HS PRN 03/13/17 Collagenase Clostridium Hist. [Santyl] 1 applic TP DAILY #90 oint...g. 04/04/17 Insulin (Levemir) [Levemir Vial] 50 units SQ BID 04/12/17 Atorvastatin Ca [Lipitor] 40 mg PO HS 06/04/17 Clopidogrel Bisulfate [Plavix -] 75 mg PO DAILY 06/04/17 Hydrocodone/Acetaminophen [Vicodin Hp 10-300 mg Tablet] 1 each PO QID 06/04/17 Insulin (Levemir) [Levemir Flexpen -] 50 units SQ BID 06/04/17 Insulin Aspart [Novolog] 0 unit SQ AC 06/04/17 Isosorbide Mononitrate [Isosorbide Mononitrate ER] 30 mg PO DAILY 06/04/17 Morphine *Sr* [MS Contin -] 120 mg PO Q8H MDD 180mg 06/04/17 Oxycodone HCl 10 mg PO QID 06/04/17 Family Disease History - Family Disease History Family Disease History: Diabetes: Grandparent, Sister (COPD), CA: Father, Respiratory: Sister, Other: Mother (CVA) Review of Systems - Review of Systems Constitutional: denies: Chills, Fever Eyes: denies: Eye Pain HENT: denies: Nasal Congestion Neck: denies: Stiffness Cardiovascular: denies: Palpitations Respiratory: denies: Orthopnea, PND Gastrointestinal: denies: Diarrhea, Rectal Bleeding Genitourinary: denies: Burning, Hematuria Musculoskeletal: denies: Muscle Pain Integumentary: denies: Rash Neurological: denies: Numbness, Seizure, Syncope Endocrine: denies: Excessive Sweating Hematology/Lymphatic: denies: Excessive Bleeding Vital Signs: Vital Signs Temperature 98.2 F 06/05/17 07:54 Pulse Rate 72 06/05/17 07:54 Respiratory Rate 16 06/05/17 07:54 Blood Pressure 132/71 06/05/17 07:54 O2 Sat by Pulse Oximetry (%) 3 L 06/05/17 07:54 Constitutional: Yes: Well Nourished, No Distress Eyes: No: Sclera Icterus HENT: No: Nasal Congestion Neck: No: Decreased ROM Respiratory: Yes: CTA Bilaterally (decr diffusely, more so at R base). No: Accessory Muscle Use, Rales, Wheezes Gastrointestinal: Yes: Normal Bowel Sounds. No: Distention, Hepatomegaly, Palpable Mass, Tenderness Cardiovascular: Yes: Regular Rate and Rhythm JVD: Yes Carotid Bruit: No PMI: Non-Displaced Heart Sounds: Yes: S1, S2. No: Gallop Murmur: No: Systolic Murmur, Diastolic Murmur Musculoskeletal: Yes: Other (No kyphosis) Extremities: No: Cold, Cyanosis Edema: No Peripheral Pulses: 2+ Left Carotid, 2+ Right Carotid, 2+ Left Doralis Pedis, 2+ Right Dorsalis Pedis Integumentary: No: Jaundice Neurological: Yes: Alert, Oriented (x3) Psychiatric: No: Agitated - Other Data Labs, Other Data: CBC, BMP 06/05/17 06:30 INR, PTT INR 1.11 (0.82-1.09) 06/04/17 19:00 Troponin, BNP 06/05/17 06:30 Troponin I < 0.02 Troponin, BNP 06/05/17 06:30 Troponin I < 0.02 Laboratory Tests 03/12/13 12/15/13 11/23/14 09:08 13:35 05:40 WBC Hgb Plt Count Sodium 140 Potassium 4.7 Carbon Dioxide BUN 63 H Creatinine 4.0 H D AST ALT B-Natriuretic Peptide 2457 H* 24317.51 H* Troponin I Triglycerides 117 D Cholesterol 114 D Total LDL Cholesterol 67 HDL Cholesterol 35 04/29/15 06/04/17 06/04/17 14:30 19:00 19:46 WBC Hgb Plt Count Sodium 136 Potassium 4.9 Carbon Dioxide 28 BUN 55 H D Creatinine 1.8 H AST 7 L D ALT 13 D B-Natriuretic Peptide 6890.63 H 8147.62 H Troponin I < 0.02 D Triglycerides Cholesterol Total LDL Cholesterol HDL Cholesterol 06/05/17 06/05/17 06:30 06:30 WBC 10.2 H Hgb 8.6 L Plt Count 365 Sodium Potassium Carbon Dioxide BUN Creatinine AST ALT B-Natriuretic Peptide Troponin I < 0.02 Triglycerides Cholesterol Total LDL Cholesterol HDL Cholesterol Imaging - Results Chest X-ray: Report Reviewed, Image Reviewed Assessment/Plan Echo 05/15: mod to sev decr LVEF; severe hypokinesis of all lindsey except basal segments. nl RV. mild MR/TR. no peric eff. Echo 01/2017: mild global HK, lvef 45-50, nl rv, nl rvsp, mild lae, mild tr Echo 12/2016: TDS; LVSF is "at least mildly reduced: RWM assessment tds; nl RV; nl LA; mild MR/TR; no veg seen (Gitig review: EF mod-severely decr'd, ? global (cannot accurately assess for RWMAs)--suspect EF is 35-40%.) Echo 04/2015: mod global HK; RV tds; trace AI C 05/15: 70-80% mRCA (ISR), 70-80% RPDA (ISR); 70-80% mLAD; 80-90% pLCX (small vessel); 90-95% OM2 (large vessel); 80-90% prox Ramus (large vessel) ...nonobstructive dz of note [id number]% ostial RCA, 50-60% eccentric lesion OM1 (large vessel); EDP 30-->25 post-nitro EF 38% (diffuse WMAs) Syntax score 20 CXR, reviewed by gitig: likely pulmonary edema pattern bilaterally (moderate), similar to prior though increased R lower (decreased L lower vs prior). no effusions EKG: NSR, old IWMI, nonsp ST-Ts lateral leads--no change vs prior 05/15 acute hypoxic resp failure: -low grade fever 100.7 -suspect acute chf component -r/o RLL infiltrate -received lasix 40 iv qd in ER with little UOP (approx 200cc on urinal marking per pt estimate) -rpt lasix 80 iv x 1 now--monitor UOP closely with urinal -was previously on lasix 80 qd as outpt (prior to last admit)--? what was taking since [facility] d/c one week ago (pt doesn't know, administers meds) -defer abx to PMD +/- pulmonary CAD: -s/p PCI (LIBBY) to 100% occl RPDA in 2004 ([facility]) with patent prior RCA stents at that time, EF 50% then; -s/p anterior STEMI 2011 with [place] LIBBY x 2 to mid LAD then ([facility]); residual dz then included 80% prox D1 (large vessel), 95% mD1; 70%mRCA (pre and post prior stents), 70% dCFX; (also 40% RPDA; 60% pCFX; 40% mCFX;) EF then 37% with AK of apex/AL lindsey and AK of IW; -s/p NSTEMI 05/15 in setting of sepsis/PNA possible trigger -extensive multivessel CAD at cath (as above)--pt offered cabg at [facility] but he declined, was discharged home on 05/28 -now states he is amenable to CABG--if remains without ischemic signs/sx's, will wait on transfer to [facility] for this until infectious and anemia issues are better clarified and clearly inactive -has repeatedly refused regular cardio (used to see roddy suarez, stopped going , we see him in hospital every time but he declines f/u with us in office) -was on ASA and plavix from before (for recurrent CVAs) -was on BB, high intensity statin -trop neg x 2 here isch CMP/acute syst CHF exacerbation: -moderately decr'd EF 05/15 -acute chf 05/15 in settying of NSTEMI, responded well to lasix 40 iv qd -d/c wt 207 (bedscale)--awaiting weight here -JVD noted on exam -BNP 8K (prior range 2K-13K here), last value 5K--hence overall stable given reduced GFR -CXR suggestive of ongoing chf--lasix as above -cont toprol (not lopressor, given this is not approved for syst CHF), hydralazine/nitrates -per pmd office records, pt was on ramipril in past, creat went up to 2.5 so it was stopped close to 2 yrs ago. given pt's repeated failure to follow up regularly in office with us, i would not rec resuming WENDY trial as he will need very frequent outpt labs monitoring. if he decides to follow with cardio regularly, can try lower effective dose ( e.g. lisinopril 2.5) than what he was previously on, and try titrate up slowly HTN: -bp controlled -cont current meds h/o CVA: -dx'd lacunar infarct 02/10 clinically then (slurred speech) -? 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
[2017-06-05] MEDS ORDERED: METOPROLOL SUCCINATE 50 MG TAB.SR.24H (FP) PO SCH (10:15)
[2017-06-05 10:36] LABS: PLATELET ESTIMATE ADEQUATE (NORMAL)
--- NOTE | 2017-06-05 10:42 | HP ---
Admitting History and Physical - Primary Care Physician PCP: Vin Isbell - Admission Chief Complaint: I can't breathe History of Present Illness: Mr Scott is a 67 year old male who comes in complaining of shortness of breath. He was recently transferred to [facility] for further treatment of his NSTEMI/CAD and was recommended for 3v CABG. However patient declined because he "had pneumonia" (of note patient was treated fully for pneumonia prior to transfer) and because of this he was discharged home. He says at home he became progressively more short of breath. He says it was worsened with exertion and lying flat, he is not short of breath if not exerting himself. He does not have a cough with it. He was not feeling febrile at home but was found to have a fever here. He denies chills, lightheadedness, dizziness, passing out, chest pain, abdominal pain, nausea, vomiting, diarrhea, constipation, difficulty or pain on urination, or swelling. 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 No: AFIB Pulmonary: Yes: COPD Gastrointestinal: Yes: Other (Colitis) Renal/: Yes: Renal Inusuff, Other (hyperkalemia) Psych: Yes: Addictions Musculoskeletal: Yes: Other (Lumbar radiculopathy) Endocrine: Yes: Diabetes Mellitus - Past Surgical History Past Surgical History: Yes: Stent - Smoking History Smoking history: Former smoker Have you smoked in the past 12 months: No Aproximately how many cigarettes per day: 30 If you are a former smoker, when did you quit?: 2017 - Alcohol/Substance Use Hx Alcohol Use: No History of Substance Use: reports: None - Social History Usual Living Arrangement: Yes: With Spouse ADL: Independent History of Recent Travel: No Home Medications - Allergies Allergies/Adverse Reactions: Allergies Allergy/AdvReac Type Severity Reaction Status Date / Time pantoprazole sodium Allergy Verified 05/17/17 05:42 [From Protonix] - Home Medications Home Medications: Ambulatory Orders Aspirin [Ecotrin] 81 mg PO DAILY 04/29/15 Temazepam [Restoril -] 30 mg PO BID 08/24/15 Docusate Sodium [Colace -] 100 mg PO BID capsule 10/28/15 Hydralazine HCl [Apresoline -] 10 mg PO BID #180 tablet 08/14/16 Polyethylene Glycol 3350 [Miralax 119 gm Btl -] 17 gm PO BID PRN #0 bottle 08/14 Magnesium Oxide [Mag-Ox -] 400 mg PO BID #60 tablet 01/27/17 Furosemide [Lasix -] 80 mg PO DAILY 02/21/17 Lansoprazole [Prevacid] 30 mg PO DAILY 03/13/17 Metoprolol Tartrate 50 mg PO DAILY 03/13/17 Pregabalin [Lyrica] 50 mg PO BID 03/13/17 Zolpidem Tartrate [Ambien] 10 mg PO HS PRN 03/13/17 Collagenase Clostridium Hist. [Santyl] 1 applic TP DAILY #90 oint...g. 04/04/17 Atorvastatin Ca [Lipitor] 40 mg PO HS 06/04/17 Clopidogrel Bisulfate [Plavix -] 75 mg PO DAILY 06/04/17 Hydrocodone/Acetaminophen [Vicodin Hp 10-300 mg Tablet] 1 each PO QID 06/04/17 Insulin (Levemir) [Levemir Flexpen -] 50 units SQ BID 06/04/17 Insulin Aspart [Novolog] 0 unit SQ AC 06/04/17 Isosorbide Mononitrate [Isosorbide Mononitrate ER] 30 mg PO DAILY 06/04/17 Morphine *Sr* [MS Contin -] 120 mg PO Q8H MDD 180mg 06/04/17 Oxycodone HCl 10 mg PO QID 06/04/17 Family Disease History - Family Disease History Family Disease History: Diabetes: Grandparent, Sister (COPD), CA: Father, Respiratory: Sister, Other: Mother (CVA) Review of Systems Findings/Remarks: Full review of systems obtained, as per HPI and otherwise negative. Physical Examination Vital Signs: Vital Signs Temperature 98.2 F 06/05/17 07:54 Pulse Rate 72 06/05/17 07:54 Respiratory Rate 16 06/05/17 07:54 Blood Pressure 132/71 06/05/17 07:54 O2 Sat by Pulse Oximetry (%) 3 L 06/05/17 07:54 Constitutional: Yes: No Distress, Calm, Obese Eyes: Yes: Conjunctiva Clear, EOM Intact, PERRL HENT: Yes: Atraumatic, Normocephalic Cardiovascular: Yes: Regular Rate and Rhythm. No: Gallop, Murmur, Rub Respiratory: Yes: Regular, On Nasal O2, Rhonchi (right base). No: Rales, Wheezes Gastrointestinal: Yes: Normal Bowel Sounds, Soft. No: Distention, Tenderness Extremities: Yes: WNL Edema: No Labs: CBC, BMP 06/05/17 06:30 Imaging - Results Chest X-ray: Report Reviewed, Image Reviewed Problem List - Problems (1) Congestive heart failure (CHF) Assessment/Plan: -chest x-ray reviewed and read as congestion -also evaluated myself, in my read showing RLL consolidation but improved from previous -case d/w cardiology, plan for diuresis -monitor Code(s): I50.9 - HEART FAILURE, UNSPECIFIED Qualifiers: Congestive heart failure type: systolic Congestive heart failure chronicity: chronic Qualified Code(s): I50.22 - Chronic systolic ( congestive) heart failure (2) Fever Assessment/Plan: -patient presents with fever of 100.7 -low suspicion for pneumonia, recently fully treated with zosyn -also pneumonia can show up on x-ray 4-6 weeks after treatment -suspect atelectasis and CHF with fluid overload -incentive spirometer -diuresis -ID consulted and case discussed Code(s): R50.9 - FEVER, UNSPECIFIED (3) Renal failure (ARF), acute on chronic Assessment/Plan: -creatinine 1.8, baseline around 1.3 -suspect cardiorenal -diurese and monitor, consult nephrology if does not improve Code(s): N17.9 - ACUTE KIDNEY FAILURE, UNSPECIFIED N18.9 - CHRONIC KIDNEY DISEASE, UNSPECIFIED (4) Acute respiratory failure Assessment/Plan: -secondary to CHF exacerbation -diurese -incentive spirometer -continue oxygen support, wean as tolerated Code(s): J96.00 - ACUTE RESPIRATORY FAILURE, UNSP W HYPOXIA OR HYPERCAPNIA (5) CAD (coronary artery disease) Assessment/Plan: -3v CABG recommended -patient initially refused, now agreeable -cardiology following and medically managing Code(s): I25.10 - ATHSCL HEART DISEASE OF [place] CORONARY ARTERY W/O ANG PCTRS Qualifiers: (6) COPD (chronic obstructive pulmonary disease) Assessment/Plan: -continue home regimen Code(s): J44.9 - CHRONIC OBSTRUCTIVE PULMONARY DISEASE, UNSPECIFIED (7) Diabetes mellitus Assessment/Plan: -continue levemir and SSI -diabetic diet Code(s): E11.9 - TYPE 2 DIABETES MELLITUS WITHOUT COMPLICATIONS Qualifiers: Diabetes mellitus type: type 2 Diabetes mellitus complication status: with circulatory complication Diabetes mellitus complication detail: with peripheral angiopathy with gangrene Diabetes mellitus penitentiary insulin use : with long term care phlebotomist use Qualified Code(s): E11.52 - Type 2 diabetes mellitus with diabetic peripheral angiopathy with gangrene; Z79.4 - FPC ( current) use of insulin (8) Hyperlipidemia Assessment/Plan: -continue statin Code(s): E78.5 - HYPERLIPIDEMIA, UNSPECIFIED (9) Hypertension Assessment/Plan: -continue hydralazine, toprol xl, and imdur -also being diuresed -well controlled -monitor Code(s): I10 - ESSENTIAL (PRIMARY) HYPERTENSION
[2017-06-05] MEDS ORDERED: FUROSEMIDE 40 MG/4 ML INJECTABLE VIAL IVPUSH ONE (10:58)
--- NOTE | 2017-06-05 13:37 | EKG ---
Test Reason : Blood Pressure : / mmHG Vent. Rate : 085 BPM Atrial Rate : 085 BPM P-R Int : 242 ms QRS Dur : 108 ms QT Int : 366 ms P-R-T Axes : 030 -41 129 degrees QTc Int : 435 ms SINUS RHYTHM WITH 1ST DEGREE A-V BLOCK WITH OCCASIONAL PREMATURE VENTRICULAR COMPLEXES LEFT AXIS DEVIATION INFERIOR INFARCT (CITED ON OR BEFORE 16-SEP-2001) CANNOT RULE OUT ANTERIOR INFARCT (CITED ON OR BEFORE 10-MAR-2013) ABNORMAL ECG WHEN COMPARED WITH ECG OF 19-MAY-2017 15:35, PREMATURE VENTRICULAR COMPLEXES ARE NOW PRESENT [place] INTERVAL HAS INCREASED Confirmed by ELISABET BOYER MD ([id number]) on 06/05/2017 1:37:09 PM Referred By: Confirmed By:ELISABET BOYER MD
--- NOTE | 2017-06-05 13:38 | CONSULT ---
Consult Consult Specialty:: infectious diseases Referred by:: Reason for Consultation:: pneumonia - History of Present Illness Chief Complaint: not feeling well. low grade fever History of Present Illness: 67 year old male who comes in complaining of shortness of breath.patient is well known to me and on the last admission was treated for pneumonia and was transferred to [facility] for cardiac work up patient was advised cabg there but it seems patient said that he has pneumonia and declined the procedure patient came home and then became progressively sob . He says it was worsened with exertion and lying flat, he is not short of breath if not exerting himself. He does not have a cough with it. He was not feeling febrile at home but was found to have a fever here. 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 No: AFIB Pulmonary: Yes: COPD Gastrointestinal: Yes: Other (Colitis) Renal/: Yes: Renal Inusuff, Other (hyperkalemia) Psych: Yes: Addictions Musculoskeletal: Yes: Other (Lumbar radiculopathy) Endocrine: Yes: Diabetes Mellitus - Past Surgical History Past Surgical History: Yes: Stent - Alcohol/Substance Use Hx Alcohol Use: No History of Substance Use: reports: None - Smoking History Smoking history: Former smoker Have you smoked in the past 12 months: No Aproximately how many cigarettes per day: 30 If you are a former smoker, when did you quit?: 2017 - Social History Usual Living Arrangement: With Spouse ADL: Independent History of Recent Travel: No Home Medications - Allergies Allergies/Adverse Reactions: Allergies Allergy/AdvReac Type Severity Reaction Status Date / Time pantoprazole sodium Allergy Verified 05/17/17 05:42 [From Protonix] - Home Medications Home Medications: Ambulatory Orders Aspirin [Ecotrin] 81 mg PO DAILY 04/29/15 Temazepam [Restoril -] 30 mg PO BID 08/24/15 Docusate Sodium [Colace -] 100 mg PO BID capsule 08/26/15 Hydralazine HCl [Apresoline -] 10 mg PO BID #180 tablet 08/14/16 Polyethylene Glycol 3350 [Miralax 119 gm Btl -] 17 gm PO BID PRN #0 bottle 08/14 Magnesium Oxide [Mag-Ox -] 400 mg PO BID #60 tablet 01/27/17 Furosemide [Lasix -] 80 mg PO DAILY 02/21/17 Lansoprazole [Prevacid] 30 mg PO DAILY 03/13/17 Metoprolol Tartrate 50 mg PO DAILY 03/13/17 Pregabalin [Lyrica] 50 mg PO BID 03/13/17 Zolpidem Tartrate [Ambien] 10 mg PO HS PRN 03/13/17 Collagenase Clostridium Hist. [Santyl] 1 applic TP DAILY #90 oint...g. 04/04/17 Atorvastatin Ca [Lipitor] 40 mg PO HS 06/04/17 Clopidogrel Bisulfate [Plavix -] 75 mg PO DAILY 06/04/17 Hydrocodone/Acetaminophen [Vicodin Hp 10-300 mg Tablet] 1 each PO QID 06/04/17 Insulin (Levemir) [Levemir Flexpen -] 50 units SQ BID 06/04/17 Insulin Aspart [Novolog] 0 unit SQ AC 06/04/17 Isosorbide Mononitrate [Isosorbide Mononitrate ER] 30 mg PO DAILY 06/04/17 Morphine *Sr* [MS Contin -] 120 mg PO Q8H MDD 180mg 06/04/17 Oxycodone HCl 10 mg PO QID 06/04/17 Family Disease History - Family Disease History Family Disease History: Diabetes: Grandparent, Sister (COPD), CA: Father, Respiratory: Sister, Other: Mother (CVA) Review of Systems - Review of Systems Constitutional: reports: Weakness HENT: reports: No Symptoms Neck: reports: No Symptoms Cardiovascular: reports: No Symptoms Respiratory: reports: Cough, SOB, SOB on Exertion Gastrointestinal: reports: No Symptoms Genitourinary: reports: No Symptoms Musculoskeletal: reports: No Symptoms Integumentary: reports: No Symptoms Neurological: reports: No Symptoms Endocrine: reports: No Symptoms Hematology/Lymphatic: reports: No Symptoms Psychiatric: reports: No Symptoms Physical Exam Vital Signs: Vital Signs Temperature 98.6 F 06/05/17 10:30 Pulse Rate 71 06/05/17 10:30 Respiratory Rate 16 06/05/17 10:30 Blood Pressure 165/78 06/05/17 10:30 O2 Sat by Pulse Oximetry (%) 97 06/05/17 10:30 Constitutional: Yes: No Distress, Calm Eyes: Yes: Conjunctiva Clear HENT: Yes: Atraumatic, Normocephalic Neck: Yes: Supple Cardiovascular: Yes: S1, S2 Respiratory: Yes: Regular, Poor Air Entry (at the bases) Gastrointestinal: Yes: Normal Bowel Sounds, Soft Musculoskeletal: Yes: WNL Extremities: Yes: Other Wound/Incision: Yes: Other (healing well) Neurological: Yes: Alert, Oriented Psychiatric: Yes: Alert, Oriented Labs: CBC, BMP 06/05/17 06:30 Imaging - Results Chest X-ray: Report Reviewed, Image Reviewed Assessment/Plan Problem List - Problems (1) Congestive heart failure (CHF) Code(s): I50.9 - HEART FAILURE, UNSPECIFIED Qualifiers: Congestive heart failure type: systolic Congestive heart failure chronicity: chronic Qualified Code(s): I50.22 - Chronic systolic ( congestive) heart failure (2) Fever Code(s): R50.9 - FEVER, UNSPECIFIED (3) Renal failure (ARF), acute on chronic Code(s): N17.9 - ACUTE KIDNEY FAILURE, UNSPECIFIED N18.9 - CHRONIC KIDNEY DISEASE, UNSPECIFIED (4) Acute respiratory failure Code(s): J96.00 - ACUTE RESPIRATORY FAILURE, UNSP W HYPOXIA OR HYPERCAPNIA (5) CAD (coronary artery disease) Code(s): I25.10 - ATHSCL HEART DISEASE OF [place] CORONARY ARTERY W/O ANG PCTRS Qualifiers: (6) COPD (chronic obstructive pulmonary disease) Code(s): J44.9 - CHRONIC OBSTRUCTIVE PULMONARY DISEASE, UNSPECIFIED (7) Diabetes mellitus Code(s): E11.9 - TYPE 2 DIABETES MELLITUS WITHOUT COMPLICATIONS Qualifiers: Diabetes mellitus type: type 2 Diabetes mellitus complication status: with circulatory complication Diabetes mellitus complication detail: with peripheral angiopathy with gangrene Diabetes mellitus usp insulin use : with usp use Qualified Code(s): E11.52 - Type 2 diabetes mellitus with diabetic peripheral angiopathy with gangrene; 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
[2017-06-05 14:34] VITALS: BMI 30.9
[2017-06-05 14:41] LABS: CPK 13 IU/L (39-308); TROPONIN I < 0.02 ng/ml (0.00-0.05)
[2017-06-05] MEDS: oxyCODONE HCL 5 MG TABLET PO PRN ×2 (15:51→20:36)
[2017-06-05] MEDS ORDERED: oxyCODONE HCL 10 MG SUSTAINED ACTING TABLET ONE (15:53)
[2017-06-05] MEDS: ACETAMINOPHEN 325 MG TABLET (FP) PO PRN (20:36)
[2017-06-05] MEDS ORDERED: ATORVASTATIN CA 40 MG TABLET (FP) PO SCH (22:00)
[2017-06-05] MEDS: ATORVASTATIN CA 40 MG TABLET (FP) PO SCH (22:17)
[2017-06-05] MEDS: TEMAZEPAM 15 MG CAPSULE PO SCH (22:17)
[2017-06-05] MEDS: ZOLPIDEM TARTRATE 5 MG TABLET PO PRN (22:18)
[2017-06-06] MEDS ORDERED: PT OWN MED DRAWER 7, Y5N ONE ×2 (02:53→15:23)
[2017-06-06] MEDS: INSULIN DETEMIR 100 UNITS/ML MDV SQ SCH ×2 (06:03→16:52)
[2017-06-06] MEDS: INSULIN SLIDING SCALE (NOVOLOG) 1 VIAL SQ SCH ×4 (06:03→23:02)
[2017-06-06 07:17] LABS: MCH 28.1 pg (25.7-33.7); MCHC 32.2 g/dl (32.0-35.9); MEAN CELL VOLUME 87.3 fl (80-96); MEAN PLT VOLUME 7.8 fl (7.5-11.1); PLATELET COUNT 380 K/MM3 (134-434); RDW 16.8 % (11.9-15.9); WHITE BLOOD COUNT 9.7 K/mm3 (4.0-10.0)
[2017-06-06 07:47] LABS: ANION GAP 7 (8-16); CALCIUM 9.3 mg/dL (8.5-10.1); CO2 30 mmol/L (21-32); CREATININE 1.5 mg/dL (0.7-1.3); GLUCOSE,RANDOM 56 mg/dL (74-106); PHOSPHOROUS 3.9 mg/dL (2.5-4.9)
[2017-06-06] MEDS: oxyCODONE HCL 5 MG TABLET PO PRN ×3 (08:47→20:35)
[2017-06-06] MEDS: ACETAMINOPHEN 325 MG TABLET (FP) PO PRN (08:47)
[2017-06-06] MEDS: CLOPIDOGREL BISULFATE 75 MG TABLET (FP) PO SCH (09:30)
[2017-06-06] MEDS: MAGNESIUM OXIDE 400 MG TABLET (FP) PO SCH ×2 (09:31→22:20)
[2017-06-06] MEDS: ISOSORBIDE MONONITRATE 30 MG TAB.SR.24H (FP) PO SCH (09:31)
[2017-06-06] MEDS: PREGABALIN 25 MG CAPSULE PO SCH ×2 (09:31→22:19)
[2017-06-06] MEDS: DOCUSATE SODIUM 100 MG CAPSULE (FP) PO SCH ×2 (09:31→22:20)
[2017-06-06] MEDS: ENOXAPARIN NA (PORCINE) 40 MG/0.4 ML DISP.SYRIN SQ SCH (09:31)
[2017-06-06] MEDS: ASPIRIN COATED 81 MG TABLET.EC PO SCH (09:31)
[2017-06-06] MEDS: hydrALAZINE HCL 10 MG TABLET PO SCH ×3 (09:31→22:19)
[2017-06-06] MEDS: PANTOPRAZOLE 40 MG TABLET (FP) PO SCH (09:31)
[2017-06-06] MEDS: COLLAGENASE CLOSTRIDIUM HIST. 30 GRAMS TUBE TP SCH (09:31)
[2017-06-06] MEDS ORDERED: METOPROLOL SUCCINATE 50 MG TAB.SR.24H (FP) PO SCH (10:00)
--- NOTE | 2017-06-06 12:28 | PN ---
Progress Note (short form) - Note Progress Note: Chief Complaint: sob History of Present Illness: S: s/p lasix 80 mg IV x 1 yesterday. hypertensive today. Current Medications Acetaminophen (Tylenol -) 650 mg PO Q4H PRN PRN Reason: FEVER OR PAIN Last Admin: 06/06/17 08:47 Dose: 650 mg Aspirin (Ecotrin -) 81 mg PO DAILY [facility] Last Admin: 06/06/17 09:31 Dose: 81 mg Atorvastatin Calcium (Lipitor -) 80 mg PO HS [facility] Last Admin: 06/05/17 22:17 Dose: 80 mg Clopidogrel Bisulfate (Plavix -) 75 mg PO DAILY [facility] Last Admin: 06/06/17 09:30 Dose: 75 mg Collagenase (Santyl -) 1 applic TP DAILY [facility] Last Admin: 06/06/17 09:31 Dose: 1 applic Docusate Sodium (Colace -) 100 mg PO BID [facility] Last Admin: 06/06/17 09:31 Dose: 100 mg Enoxaparin Sodium (Lovenox -) 40 mg SQ DAILY [facility] Last Admin: 06/06/17 09:31 Dose: 40 mg Hydralazine HCl (Apresoline -) 10 mg PO BID [facility] Last Admin: 06/06/17 09:31 Dose: 10 mg Insulin Aspart (Novolog Vial Sliding Scale -) 1 vial SQ ACHS [facility] PRN Reason: Protocol Last Admin: 06/06/17 11:47 Dose: Not Given Insulin Detemir (Levemir Vial) 50 units SQ BIDI [facility] Last Admin: 06/06/17 06:03 Dose: Not Given Isosorbide Mononitrate (Imdur -) 30 mg PO DAILY [facility] Last Admin: 06/06/17 09:31 Dose: 30 mg Magnesium Oxide (Mag-Ox -) 400 mg PO BID [facility] Last Admin: 06/06/17 09:31 Dose: 400 mg Metoprolol Succinate (Toprol Xl -) 50 mg PO DAILY [facility] Last Admin: 06/06/17 09:31 Dose: 50 mg Morphine Sulfate (Ms Contin -) 100 mg PO TID [facility] Oxycodone HCl (Roxicodone -) 10 mg PO Q6H PRN PRN Reason: PAIN Last Admin: 06/06/17 08:47 Dose: 10 mg Pantoprazole Sodium (Protonix -) 40 mg PO DAILY [facility] Last Admin: 06/06/17 09:31 Dose: 40 mg Polyethylene Glycol (Miralax (For Daily Use) -) 17 gm PO BID PRN PRN Reason: CONSTIPATION Pregabalin (Lyrica -) 50 mg PO BID [facility] Last Admin: 06/06/17 09:31 Dose: 50 mg Temazepam (Restoril -) 30 mg PO HS [facility] Last Admin: 06/05/17 22:17 Dose: 30 mg Zolpidem Tartrate (Ambien -) 10 mg PO HS PRN PRN Reason: sleep Last Admin: 06/05/17 22:18 Dose: 10 mg Vital Signs - 24 hr 06/05/17 06/05/17 06/05/17 12:30 16:54 21:00 Temperature 98.9 F 98.2 F Pulse Rate 70 Pulse Rate [ 72 Apical] Respiratory 20 16 Rate Blood Pressure 111/55 Blood Pressure 148/58 [Right Arm] O2 Sat by Pulse 94 L 98 93 L Oximetry (%) 06/05/17 06/06/17 06/06/17 22:00 01:44 06:00 Temperature 97.8 F 98.1 F 98.1 F Pulse Rate 70 67 75 Pulse Rate [ Apical] Respiratory 22 16 22 Rate Blood Pressure 158/85 138/69 170/90 Blood Pressure [Right Arm] O2 Sat by Pulse Oximetry (%) 06/06/17 08:00 Temperature 98.1 F Pulse Rate 85 Pulse Rate [ Apical] Respiratory 22 Rate Blood Pressure 158/66 Blood Pressure [Right Arm] O2 Sat by Pulse 95 Oximetry (%) Intake & Output 06/04/17 06/05/17 06/06/17 06/07/17 07:59 07:59 07:59 07:59 Output Total 800 400 Balance -800 -400 Weight 205 lb 197 lb 4 oz Constitutional: Yes: Well Nourished, No Distress Eyes: No: Sclera Icterus HENT: No: Nasal Congestion Neck: No: Decreased ROM Respiratory: Yes: CTA Bilaterally (decr diffusely, more so at R base). No: Accessory Muscle Use, Rales, Wheezes Gastrointestinal: Yes: Normal Bowel Sounds. No: Distention, Hepatomegaly, Palpable Mass, Tenderness Cardiovascular: Yes: Regular Rate and Rhythm JVD: Yes Carotid Bruit: No PMI: Non-Displaced Heart Sounds: Yes: S1, S2. No: Gallop Murmur: No: Systolic Murmur, Diastolic Murmur Musculoskeletal: Yes: Other (No kyphosis) Extremities: No: Cold, Cyanosis Edema: No Peripheral Pulses: 2+ Left Carotid, 2+ Right Carotid, 2+ Left Doralis Pedis, 2+ Right Dorsalis Pedis Integumentary: No: Jaundice Neurological: Yes: Alert, Oriented (x3) Psychiatric: No: Agitated - Other Data Labs, Other Data: CBC, BMP 06/06/17 05:35 06/06/17 05:35 tele: /reema Imaging - Results Chest X-ray: Report Reviewed, Image Reviewed Assessment/Plan Echo 05/15: mod to sev decr LVEF; severe hypokinesis of all lindsey except basal segments. nl RV. mild MR/TR. no peric eff. Echo 01/2017: mild global HK, lvef 45-50, nl rv, nl rvsp, mild lae, mild tr Echo 12/2016: TDS; LVSF is "at least mildly reduced: RWM assessment tds; nl RV; nl LA; mild MR/TR; no veg seen (Gitig review: EF mod-severely decr'd, ? global (cannot accurately assess for RWMAs)--suspect EF is 35-40%.) Echo 04/2015: mod global HK; RV tds; trace AI [facility] 05/15: 70-80% mRCA (ISR), 70-80% RPDA (ISR); 70-80% mLAD; 80-90% pLCX (small vessel); 90-95% OM2 (large vessel); 80-90% prox Ramus (large vessel) ...nonobstructive dz of note -58% ostial RCA, 50-60% eccentric lesion OM1 (large vessel); EDP 30-->25 post-nitro EF 38% (diffuse WMAs) Syntax score 20 CXR, reviewed by gitig: likely pulmonary edema pattern bilaterally (moderate), similar to prior though increased R lower (decreased L lower vs prior). no effusions EKG: NSR, old IWMI, nonsp ST-Ts lateral leads--no change vs prior 05/15 acute hypoxic resp failure: -low grade fever 100.7 -suspect acute chf component -r/o RLL infiltrate -received lasix 40 iv qd in ER with little UOP (approx 200cc on urinal marking per pt estimate) -rpt lasix 80 iv x 1 06/05 and 06/06 Was previously on lasix 80 qd as outpt (prior to last admit)--? what was taking since [facility] d/c one week ago (pt doesn't know , administers meds) -defer abx to PMD +/- pulmonary CAD: -s/p PCI (LIBBY) to 100% occl RPDA in 2004 ([facility]) with patent prior RCA stents at that time, EF 50% then; -s/p anterior STEMI 2011 with [place] LIBBY x 2 to mid LAD then ([facility]); residual dz then included 80% prox D1 (large vessel), 95% mD1; 70%mRCA (pre and post prior stents), 70% dCFX; (also 40% RPDA; 60% pCFX; 40% mCFX;) EF then 37% with AK of apex/AL lindsey and AK of IW; -s/p NSTEMI 05/15 in setting of sepsis/PNA possible trigger -extensive multivessel CAD at cath (as above)--pt offered cabg at [facility] but he declined, was discharged home on 05/28 -now states he is amenable to CABG--if remains without ischemic signs/sx's, will wait on transfer to [facility] for this until infectious and anemia issues are better clarified and clearly inactive -has repeatedly refused regular cardio (used to see roddy suarez, stopped going , we see him in hospital every time but he declines f/u with us in office) -was on ASA and plavix from before (for recurrent CVAs) -was on BB, high intensity statin -trop neg x 2 here - 06/06 con't, bb, statin, dapt. isch CMP/acute syst CHF exacerbation: -moderately decr'd EF 05/15 -acute chf 05/15 in settying of NSTEMI, responded well to lasix 40 iv qd -d/c wt 207 (bedscale)--awaiting weight here -JVD noted on exam -BNP 8K (prior range 2K-13K here), last value 5K--hence overall stable given reduced GFR -CXR suggestive of ongoing chf--lasix as above -cont toprol (not lopressor, given this is not approved for syst CHF), hydralazine/nitrates -per pmd office records, pt was on ramipril in past, creat went up to 2.5 so it was stopped close to 2 yrs ago. given pt's repeated failure to follow up regularly in office with us, i would not rec resuming WENDY trial as he will need very frequent outpt labs monitoring. if he decides to follow with cardio regularly, can try lower effective dose ( e.g. lisinopril 2.5) than what he was previously on, and try titrate up slowly. currently on alternative hydral/imdur combo. con't for now. - 06/06. con't bb, hydral, imdur. Will uptitrate hydralazine today. Will redose lasix today. Cr improving with diuresis. con't daily weights, i/o HTN: -bp elevated 06/06, increasing hydral to tid dosing. will change metoprolol succinate to 50 bid . -cont current meds h/o CVA: -dx'd lacunar infarct 02/10 clinically then (slurred speech) -? acute CVA/TIA 11/13, seen by neuro then--ASA added to prior plavix at that time -same meds BRANT on CKD: -cr freq fluctuates 1.5-2.9 on past admits here, most recently 1.3-1.5 in 03/15 -renal fxn improving here with diuresis. anemia: -prior hgb range 9s-11s -hgb 8s here -stool guaiac, iron studies -may need further w/u of occult GIB if going to consider PCI with obligatory prolonged DAPT regimen (has tolerated DAPT long time thus far, for CVA sec prevention regimen) yue [place] 2nd degree AVB, chronic: -seen on tele here, no significant pauses, benign. monitor with uptitration of bb.
[2017-06-06] MEDS ORDERED: morphine SO4 SUSTAINED ACTING 100 MG TABLET.SA PO SCH (12:37)
[2017-06-06] MEDS ORDERED: FUROSEMIDE 40 MG/4 ML INJECTABLE VIAL IVPUSH ONE (12:41)
--- NOTE | 2017-06-06 12:44 | PN ---
Progress Note, Physician Chief Complaint: Mr Scott complains of his chronic pain. Also with shortness of breath and lethargy. No cp or n/v. - Current Medication List Current Medications: Active Medications Acetaminophen (Tylenol -) 650 mg PO Q4H PRN PRN Reason: FEVER OR PAIN Last Admin: 06/06/17 08:47 Dose: 650 mg Aspirin (Ecotrin -) 81 mg PO DAILY [facility] Last Admin: 06/06/17 09:31 Dose: 81 mg Atorvastatin Calcium (Lipitor -) 80 mg PO HS [facility] Last Admin: 06/05/17 22:17 Dose: 80 mg Clopidogrel Bisulfate (Plavix -) 75 mg PO DAILY [facility] Last Admin: 06/06/17 09:30 Dose: 75 mg Collagenase (Santyl -) 1 applic TP DAILY [facility] Last Admin: 06/06/17 09:31 Dose: 1 applic Docusate Sodium (Colace -) 100 mg PO BID [facility] Last Admin: 06/06/17 09:31 Dose: 100 mg Enoxaparin Sodium (Lovenox -) 40 mg SQ DAILY [facility] Last Admin: 06/06/17 09:31 Dose: 40 mg Furosemide (Lasix Injection -) 80 mg IVPUSH ONCE ONE Stop: 06/06/17 12:42 Hydralazine HCl (Apresoline -) 10 mg PO TID [facility] Insulin Aspart (Novolog Vial Sliding Scale -) 1 vial SQ ACHS [facility] PRN Reason: Protocol Last Admin: 06/06/17 11:47 Dose: Not Given Insulin Detemir (Levemir Vial) 50 units SQ BIDI [facility] Last Admin: 06/06/17 06:03 Dose: Not Given Isosorbide Mononitrate (Imdur -) 30 mg PO DAILY [facility] Last Admin: 06/06/17 09:31 Dose: 30 mg Magnesium Oxide (Mag-Ox -) 400 mg PO BID [facility] Last Admin: 06/06/17 09:31 Dose: 400 mg Metoprolol Succinate (Toprol Xl -) 50 mg PO BID [facility] Morphine Sulfate (Ms Contin -) 90 mg PO TID [facility] Oxycodone HCl (Roxicodone -) 10 mg PO Q6H PRN PRN Reason: PAIN Last Admin: 06/06/17 08:47 Dose: 10 mg Pantoprazole Sodium (Protonix -) 40 mg PO DAILY [facility] Last Admin: 06/06/17 09:31 Dose: 40 mg Polyethylene Glycol (Miralax (For Daily Use) -) 17 gm PO BID PRN PRN Reason: CONSTIPATION Pregabalin (Lyrica -) 50 mg PO BID [facility] Last Admin: 06/06/17 09:31 Dose: 50 mg Temazepam (Restoril -) 30 mg PO HS [facility] Last Admin: 06/05/17 22:17 Dose: 30 mg Zolpidem Tartrate (Ambien -) 10 mg PO HS PRN PRN Reason: sleep Last Admin: 06/05/17 22:18 Dose: 10 mg - Objective Vital Signs: Vital Signs Temperature 98.1 F 06/06/17 08:00 Pulse Rate 85 06/06/17 08:00 Respiratory Rate 22 06/06/17 08:00 Blood Pressure 158/66 06/06/17 08:00 O2 Sat by Pulse Oximetry (%) 95 06/06/17 08:00 Constitutional: Yes: No Distress, Calm, Obese Cardiovascular: Yes: Regular Rate and Rhythm. No: Gallop, Murmur, Rub Respiratory: Yes: Regular, On Nasal O2, Rhonchi. No: CTA Bilaterally, Rales, Wheezes Gastrointestinal: Yes: Normal Bowel Sounds, Soft. No: Distention, Tenderness Extremities: Yes: WNL Edema: Yes Edema: LLE: 1+, RLE: 1+ Labs: CBC, BMP 06/06/17 05:35 06/06/17 05:35 INR, PTT INR 1.11 (0.82-1.09) 06/04/17 19:00 Problem List - Problems (1) Congestive heart failure (CHF) Code(s): I50.9 - HEART FAILURE, UNSPECIFIED Qualifiers: Congestive heart failure type: systolic Congestive heart failure chronicity: chronic Qualified Code(s): I50.22 - Chronic systolic ( congestive) heart failure (2) Fever Code(s): R50.9 - FEVER, UNSPECIFIED (3) Renal failure (ARF), acute on chronic Code(s): N17.9 - ACUTE KIDNEY FAILURE, UNSPECIFIED N18.9 - CHRONIC KIDNEY DISEASE, UNSPECIFIED (4) Acute respiratory failure Code(s): J96.00 - ACUTE RESPIRATORY FAILURE, UNSP W HYPOXIA OR HYPERCAPNIA (5) CAD (coronary artery disease) Code(s): I25.10 - ATHSCL HEART DISEASE OF [place] CORONARY ARTERY W/O ANG PCTRS Qualifiers: (6) COPD (chronic obstructive pulmonary disease) Code(s): J44.9 - CHRONIC OBSTRUCTIVE PULMONARY DISEASE, UNSPECIFIED (7) Diabetes mellitus Code(s): E11.9 - TYPE 2 DIABETES MELLITUS WITHOUT COMPLICATIONS Qualifiers: Diabetes mellitus type: type 2 Diabetes mellitus complication status: with circulatory complication Diabetes mellitus complication detail: with peripheral angiopathy with gangrene Diabetes mellitus roasterman insulin use : with roasterman use Qualified Code(s): E11.52 - Type 2 diabetes mellitus with diabetic peripheral angiopathy with gangrene; Z79.4 - half-way ( current) use of insulin (8) Hyperlipidemia Code(s): E78.5 - HYPERLIPIDEMIA, UNSPECIFIED (9) Hypertension Code(s): I10 - ESSENTIAL (PRIMARY) HYPERTENSION Assessment/Plan (1) Congestive heart failure (CHF) Assessment/Plan: -cardiology following and diuresing -complaining of shortness of breath and fatigue -will check ABG -continue lasix per cardiology Code(s): I50.9 - HEART FAILURE, UNSPECIFIED Qualifiers: Congestive heart failure type: systolic Congestive heart failure chronicity: chronic Qualified Code(s): I50.22 - Chronic systolic ( congestive) heart failure (2) Fever Assessment/Plan: -fever has not recurred -1/ blood culture growing MRSA, possible contaminant -recheck blood cultures -does not appear septic -will hold on antibiotics, await ID recommendations Code(s): R50.9 - FEVER, UNSPECIFIED (3) Renal failure (ARF), acute on chronic Assessment/Plan: -improving with diuresis -cardiorenal Code(s): N17.9 - ACUTE KIDNEY FAILURE, UNSPECIFIED N18.9 - CHRONIC KIDNEY DISEASE, UNSPECIFIED (4) Acute respiratory failure Assessment/Plan: -check ABG today Code(s): J96.00 - ACUTE RESPIRATORY FAILURE, UNSP W HYPOXIA OR HYPERCAPNIA (5) CAD (coronary artery disease) Assessment/Plan: -3v CABG recommended -patient initially refused, now agreeable -cardiology following and medically managing Code(s): I25.10 - ATHSCL HEART DISEASE OF [place] CORONARY ARTERY W/O ANG PCTRS Qualifiers: (6) COPD (chronic obstructive pulmonary disease) Assessment/Plan: -continue home regimen Code(s): J44.9 - CHRONIC OBSTRUCTIVE PULMONARY DISEASE, UNSPECIFIED (7) Diabetes mellitus Assessment/Plan: -continue levemir and SSI -diabetic diet Code(s): E11.9 - TYPE 2 DIABETES MELLITUS WITHOUT COMPLICATIONS Qualifiers: Diabetes mellitus type: type 2 Diabetes mellitus complication status: with circulatory complication Diabetes mellitus complication detail: with peripheral angiopathy with gangrene Diabetes mellitus roasterman insulin use : with roasterman use Qualified Code(s): E11.52 - Type 2 diabetes mellitus with diabetic peripheral angiopathy with gangrene; Z79.4 - roasterman ( current) use of insulin (8) Hyperlipidemia Assessment/Plan: -continue statin Code(s): E78.5 - HYPERLIPIDEMIA, UNSPECIFIED (9) Hypertension Assessment/Plan: -continue hydralazine, toprol xl, and imdur -also being diuresed -elevated, possible secondary to pain -called pharmacy, will place on MS Contin 90mg tid Code(s): I10 - ESSENTIAL (PRIMARY) HYPERTENSION
[2017-06-06 13:18] LABS: PLATELET ESTIMATE ADEQUATE (NORMAL)
[2017-06-06] MEDS: morphine SO4 SUSTAINED ACTING 30 MG TABLET.SA PO SCH ×2 (13:21→22:18)
[2017-06-06 13:35] LABS: ARTERIAL BLOOD GAS BASE EXCESS 4.1 meq/l (-2-2); ARTERIAL BLOOD GAS HCO3 28.5 meq/L (22-26); ARTERIAL BLOOD GAS pH 7.43 (7.35-7.45)
[2017-06-06 13:36] LABS: ALLENS TEST POSITIVE; ART PUNCT SITE LEFT RADIAL; PT. ON O2? YES
[2017-06-06 13:37] LABS: LPM/O2% 3L; TYPE OF O2 N/C
[2017-06-06] MEDS ORDERED: VANCOMYCIN 1,250 MG in DEXTROSE 5%-WATER - 250 ML IVPB ONE (15:54)
--- NOTE | 2017-06-06 16:05 | PN ---
Progress Note, Physician History of Present Illness: patient feels fatigued sob does not feel himself blood cx have come positive - Current Medication List Current Medications: Active Medications Acetaminophen (Tylenol -) 650 mg PO Q4H PRN PRN Reason: FEVER OR PAIN Last Admin: 06/06/17 08:47 Dose: 650 mg Aspirin (Ecotrin -) 81 mg PO DAILY [facility] Last Admin: 06/06/17 09:31 Dose: 81 mg Atorvastatin Calcium (Lipitor -) 80 mg PO HS [facility] Last Admin: 06/05/17 22:17 Dose: 80 mg Clopidogrel Bisulfate (Plavix -) 75 mg PO DAILY [facility] Last Admin: 06/06/17 09:30 Dose: 75 mg Collagenase (Santyl -) 1 applic TP DAILY [facility] Last Admin: 06/06/17 09:31 Dose: 1 applic Docusate Sodium (Colace -) 100 mg PO BID [facility] Last Admin: 06/06/17 09:31 Dose: 100 mg Enoxaparin Sodium (Lovenox -) 40 mg SQ DAILY [facility] Last Admin: 06/06/17 09:31 Dose: 40 mg Hydralazine HCl (Apresoline -) 10 mg PO TID [facility] Last Admin: 06/06/17 13:22 Dose: 10 mg Vancomycin HCl 1,250 mg/ (Dextrose) 250 mls @ 166.667 mls/hr IVPB ONCE ONE PRN Reason: Protocol Stop: 06/06/17 17:23 Insulin Aspart (Novolog Vial Sliding Scale -) 1 vial SQ ACHS [facility] PRN Reason: Protocol Last Admin: 06/06/17 11:47 Dose: Not Given Insulin Detemir (Levemir Vial) 50 units SQ BIDI [facility] Last Admin: 06/06/17 06:03 Dose: Not Given Isosorbide Mononitrate (Imdur -) 30 mg PO DAILY [facility] Last Admin: 06/06/17 09:31 Dose: 30 mg Magnesium Oxide (Mag-Ox -) 400 mg PO BID [facility] Last Admin: 06/06/17 09:31 Dose: 400 mg Metoprolol Succinate (Toprol Xl -) 50 mg PO BID [facility] Morphine Sulfate (Ms Contin -) 90 mg PO TID [facility] Last Admin: 06/06/17 13:21 Dose: 90 mg Oxycodone HCl (Roxicodone -) 10 mg PO Q6H PRN PRN Reason: PAIN Last Admin: 06/06/17 15:04 Dose: 10 mg Pantoprazole Sodium (Protonix -) 40 mg PO DAILY [facility] Last Admin: 06/06/17 09:31 Dose: 40 mg Polyethylene Glycol (Miralax (For Daily Use) -) 17 gm PO BID PRN PRN Reason: CONSTIPATION Pregabalin (Lyrica -) 50 mg PO BID [facility] Last Admin: 06/06/17 09:31 Dose: 50 mg Temazepam (Restoril -) 30 mg PO HS [facility] Last Admin: 06/05/17 22:17 Dose: 30 mg Zolpidem Tartrate (Ambien -) 10 mg PO HS PRN PRN Reason: sleep Last Admin: 06/05/17 22:18 Dose: 10 mg - Objective Vital Signs: Vital Signs Temperature 99.6 F 06/06/17 14:00 Pulse Rate 89 06/06/17 14:00 Respiratory Rate 18 06/06/17 14:00 Blood Pressure 138/72 06/06/17 14:00 O2 Sat by Pulse Oximetry (%) 95 06/06/17 08:00 Constitutional: Yes: Calm, Mild Distress Neck: Yes: Supple Cardiovascular: Yes: S1, S2 Respiratory: Yes: Poor Air Entry, Rhonchi Gastrointestinal: Yes: Normal Bowel Sounds, Soft Musculoskeletal: Yes: WNL Extremities: Yes: Other Neurological: Yes: Alert, Oriented Psychiatric: Yes: Alert Labs: CBC, BMP 06/06/17 05:35 06/06/17 05:35 INR, PTT INR 1.11 (0.82-1.09) 06/04/17 19:00 Assessment/Plan Problem List - Problems (1) Congestive heart failure (CHF) Code(s): I50.9 - HEART FAILURE, UNSPECIFIED Qualifiers: Congestive heart failure type: systolic Congestive heart failure chronicity: chronic Qualified Code(s): I50.22 - Chronic systolic ( congestive) heart failure (2) Fever Code(s): R50.9 - FEVER, UNSPECIFIED (3) Renal failure (ARF), acute on chronic Code(s): N17.9 - ACUTE KIDNEY FAILURE, UNSPECIFIED N18.9 - CHRONIC KIDNEY DISEASE, UNSPECIFIED (4) Acute respiratory failure Code(s): J96.00 - ACUTE RESPIRATORY FAILURE, UNSP W HYPOXIA OR HYPERCAPNIA (5) CAD (coronary artery disease) Code(s): I25.10 - ATHSCL HEART DISEASE OF [place] CORONARY ARTERY W/O ANG PCTRS Qualifiers: (6) COPD (chronic obstructive pulmonary disease) Code(s): J44.9 - CHRONIC OBSTRUCTIVE PULMONARY DISEASE, UNSPECIFIED (7) Diabetes mellitus Code(s): E11.9 - TYPE 2 DIABETES MELLITUS WITHOUT COMPLICATIONS Qualifiers: Diabetes mellitus type: type 2 Diabetes mellitus complication status: with circulatory complication Diabetes mellitus complication detail: with peripheral angiopathy with gangrene Diabetes mellitus 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
[2017-06-06] MEDS: METOPROLOL SUCCINATE 50 MG TAB.SR.24H (FP) PO SCH (22:19)
[2017-06-06] MEDS: TEMAZEPAM 15 MG CAPSULE PO SCH (22:19)
[2017-06-06] MEDS: ATORVASTATIN CA 40 MG TABLET (FP) PO SCH (22:20)
[2017-06-06] MEDS: ZOLPIDEM TARTRATE 5 MG TABLET PO PRN (22:23)
[2017-06-07] MEDS: morphine SO4 SUSTAINED ACTING 30 MG TABLET.SA PO SCH ×3 (05:36→21:48)
[2017-06-07] MEDS: hydrALAZINE HCL 10 MG TABLET PO SCH ×3 (05:36→21:52)
[2017-06-07 06:06] LABS: SERUM IRON 16 ug/dL (38-169); TOTAL IRON BINDING CAPACITY 193 ug/dL (250-450); UIBC 177 ug/dL (111-343)
[2017-06-07] MEDS: INSULIN SLIDING SCALE (NOVOLOG) 1 VIAL SQ SCH ×4 (06:32→22:01)
[2017-06-07] MEDS: INSULIN DETEMIR 100 UNITS/ML MDV SQ SCH ×2 (06:32→17:30)
[2017-06-07 07:38] LABS: MCH 27.6 pg (25.7-33.7); MCHC 31.9 g/dl (32.0-35.9); MEAN CELL VOLUME 86.5 fl (80-96); PLATELET COUNT 357 K/MM3 (134-434); RDW 16.6 % (11.9-15.9)
[2017-06-07] MEDS ORDERED: PT OWN MED DRAWER 7, Y5N ONE ×2 (07:49→16:12)
[2017-06-07 08:01] LABS: ANION GAP 8 (8-16); CALCIUM 9.1 mg/dL (8.5-10.1); CO2 33 mmol/L (21-32); CREATININE 1.3 mg/dL (0.7-1.3); GLUCOSE,RANDOM 102 mg/dL (74-106); PHOSPHOROUS 4.1 mg/dL (2.5-4.9)
--- NOTE | 2017-06-07 10:27 | PN ---
Progress Note, Physician Chief Complaint: Mr Scott mainly complains of his chronic pain. No cp, sob, or n/v. - Current Medication List Current Medications: Active Medications Acetaminophen (Tylenol -) 650 mg PO Q4H PRN PRN Reason: FEVER OR PAIN Last Admin: 06/06/17 08:47 Dose: 650 mg Aspirin (Ecotrin -) 81 mg PO DAILY [facility] Last Admin: 06/06/17 09:31 Dose: 81 mg Atorvastatin Calcium (Lipitor -) 80 mg PO HS [facility] Last Admin: 06/06/17 22:20 Dose: 80 mg Clopidogrel Bisulfate (Plavix -) 75 mg PO DAILY [facility] Last Admin: 06/06/17 09:30 Dose: 75 mg Collagenase (Santyl -) 1 applic TP DAILY [facility] Last Admin: 06/06/17 09:31 Dose: 1 applic Docusate Sodium (Colace -) 100 mg PO BID [facility] Last Admin: 06/06/17 22:20 Dose: Not Given Enoxaparin Sodium (Lovenox -) 40 mg SQ DAILY [facility] Last Admin: 06/06/17 09:31 Dose: 40 mg Hydralazine HCl (Apresoline -) 10 mg PO TID [facility] Last Admin: 06/07/17 05:36 Dose: 10 mg Insulin Aspart (Novolog Vial Sliding Scale -) 1 vial SQ ACHS [facility] PRN Reason: Protocol Last Admin: 06/07/17 06:32 Dose: Not Given Insulin Detemir (Levemir Vial) 50 units SQ BIDI [facility] Last Admin: 06/07/17 06:32 Dose: Not Given Isosorbide Mononitrate (Imdur -) 30 mg PO DAILY [facility] Last Admin: 06/06/17 09:31 Dose: 30 mg Magnesium Oxide (Mag-Ox -) 400 mg PO BID [facility] Last Admin: 06/06/17 22:20 Dose: 400 mg Metoprolol Succinate (Toprol Xl -) 50 mg PO BID [facility] Last Admin: 06/06/17 22:19 Dose: 50 mg Morphine Sulfate (Ms Contin -) 90 mg PO TID [facility] Last Admin: 06/07/17 05:36 Dose: 90 mg Oxycodone HCl (Roxicodone -) 10 mg PO Q6H PRN PRN Reason: PAIN Last Admin: 06/06/17 20:35 Dose: 10 mg Pantoprazole Sodium (Protonix -) 40 mg PO DAILY [facility] Last Admin: 06/06/17 09:31 Dose: 40 mg Polyethylene Glycol (Miralax (For Daily Use) -) 17 gm PO BID PRN PRN Reason: CONSTIPATION Pregabalin (Lyrica -) 50 mg PO BID [facility] Last Admin: 06/06/17 22:19 Dose: 50 mg Temazepam (Restoril -) 30 mg PO HS [facility] Last Admin: 06/06/17 22:19 Dose: 30 mg Zolpidem Tartrate (Ambien -) 10 mg PO HS PRN PRN Reason: sleep Last Admin: 06/06/17 22:23 Dose: 10 mg - Objective Vital Signs: Vital Signs Temperature 36.4 C L 06/07/17 05:59 Pulse Rate 67 06/07/17 05:59 Respiratory Rate 20 06/07/17 05:59 Blood Pressure 151/76 06/07/17 05:59 O2 Sat by Pulse Oximetry (%) 96 06/06/17 21:00 Constitutional: Yes: Well Nourished, No Distress, Calm Cardiovascular: Yes: Regular Rate and Rhythm. No: Gallop, Murmur, Rub Respiratory: Yes: Regular, Rhonchi (RLL). No: CTA Bilaterally, Rales, Wheezes Gastrointestinal: Yes: Normal Bowel Sounds, Soft. No: Distention, Tenderness Extremities: Yes: WNL Edema: No Labs: CBC, BMP 06/07/17 05:48 06/07/17 05:48 INR, PTT INR 1.11 (0.82-1.09) 06/04/17 19:00 Problem List - Problems (1) Congestive heart failure (CHF) Code(s): I50.9 - HEART FAILURE, UNSPECIFIED Qualifiers: Congestive heart failure type: systolic Congestive heart failure chronicity: chronic Qualified Code(s): I50.22 - Chronic systolic ( congestive) heart failure (2) Fever Code(s): R50.9 - FEVER, UNSPECIFIED (3) Renal failure (ARF), acute on chronic Code(s): N17.9 - ACUTE KIDNEY FAILURE, UNSPECIFIED N18.9 - CHRONIC KIDNEY DISEASE, UNSPECIFIED (4) Acute respiratory failure Code(s): J96.00 - ACUTE RESPIRATORY FAILURE, UNSP W HYPOXIA OR HYPERCAPNIA (5) CAD (coronary artery disease) Code(s): I25.10 - ATHSCL HEART DISEASE OF [place] CORONARY ARTERY W/O ANG PCTRS Qualifiers: (6) COPD (chronic obstructive pulmonary disease) Code(s): J44.9 - CHRONIC OBSTRUCTIVE PULMONARY DISEASE, UNSPECIFIED (7) Diabetes mellitus Code(s): E11.9 - TYPE 2 DIABETES MELLITUS WITHOUT COMPLICATIONS Qualifiers: Diabetes mellitus type: type 2 Diabetes mellitus complication status: with circulatory complication Diabetes mellitus complication detail: with peripheral angiopathy with gangrene Diabetes mellitus [facility] insulin use : with [facility] use Qualified Code(s): E11.52 - Type 2 diabetes mellitus with diabetic peripheral angiopathy with gangrene; Z79.4 - long term care administrator ( current) use of insulin (8) Hyperlipidemia Code(s): E78.5 - HYPERLIPIDEMIA, UNSPECIFIED (9) Hypertension Code(s): I10 - ESSENTIAL (PRIMARY) HYPERTENSION Assessment/Plan (1) Congestive heart failure (CHF) Assessment/Plan: -cardiology following and diuresing -improving -continue lasix per cardiology Code(s): I50.9 - HEART FAILURE, UNSPECIFIED Qualifiers: Congestive heart failure type: systolic Congestive heart failure chronicity: chronic Qualified Code(s): I50.22 - Chronic systolic ( congestive) heart failure (2) Fever Assessment/Plan: -fever has not recurred -1/4 blood culture growing staph -received dose of vancomycin per ID -repeat blood cultures sent and will follow up Code(s): R50.9 - FEVER, UNSPECIFIED (3) Renal failure (ARF), acute on chronic Assessment/Plan: -improving with diuresis -cardiorenal -at baseline Code(s): N17.9 - ACUTE KIDNEY FAILURE, UNSPECIFIED N18.9 - CHRONIC KIDNEY DISEASE, UNSPECIFIED (4) Acute respiratory failure Assessment/Plan: -resolved Code(s): J96.00 - ACUTE RESPIRATORY FAILURE, UNSP W HYPOXIA OR HYPERCAPNIA (5) CAD (coronary artery disease) Assessment/Plan: -3v CABG recommended -patient initially refused, now agreeable -cardiology following and medically managing -await results of blood cultures and recommendation of infectious disease before transferring Code(s): I25.10 - ATHSCL HEART DISEASE OF [place] CORONARY ARTERY W/O ANG PCTRS Qualifiers: (6) COPD (chronic obstructive pulmonary disease) Assessment/Plan: -continue home regimen Code(s): J44.9 - CHRONIC OBSTRUCTIVE PULMONARY DISEASE, UNSPECIFIED (7) Diabetes mellitus Assessment/Plan: -continue levemir and SSI -diabetic diet Code(s): E11.9 - TYPE 2 DIABETES MELLITUS WITHOUT COMPLICATIONS Qualifiers: Diabetes mellitus type: type 2 Diabetes mellitus complication status: with circulatory complication Diabetes mellitus complication detail: with peripheral angiopathy with gangrene 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
[2017-06-07] MEDS: oxyCODONE HCL 5 MG TABLET PO PRN ×2 (10:31→16:43)
[2017-06-07] MEDS: ACETAMINOPHEN 325 MG TABLET (FP) PO PRN ×2 (10:31→16:43)
[2017-06-07] MEDS: ENOXAPARIN NA (PORCINE) 40 MG/0.4 ML DISP.SYRIN SQ SCH (10:31)
[2017-06-07] MEDS: MAGNESIUM OXIDE 400 MG TABLET (FP) PO SCH ×2 (10:32→21:50)
[2017-06-07] MEDS: PREGABALIN 25 MG CAPSULE PO SCH ×2 (10:32→21:50)
[2017-06-07] MEDS: METOPROLOL SUCCINATE 50 MG TAB.SR.24H (FP) PO SCH ×2 (10:32→21:52)
[2017-06-07] MEDS: PANTOPRAZOLE 40 MG TABLET (FP) PO SCH (10:32)
[2017-06-07] MEDS: ASPIRIN COATED 81 MG TABLET.EC PO SCH (10:32)
[2017-06-07] MEDS: ISOSORBIDE MONONITRATE 30 MG TAB.SR.24H (FP) PO SCH (10:32)
[2017-06-07] MEDS: CLOPIDOGREL BISULFATE 75 MG TABLET (FP) PO SCH (10:32)
[2017-06-07] MEDS: COLLAGENASE CLOSTRIDIUM HIST. 30 GRAMS TUBE TP SCH ×2 (10:32→16:43)
[2017-06-07] MEDS: DOCUSATE SODIUM 100 MG CAPSULE (FP) PO SCH ×2 (10:32→21:50)
--- NOTE | 2017-06-07 11:25 | PN ---
Progress Note (short form) - Note Progress Note: s: no cp, palps, dizzy, +mild sob Current Medications Generic Name Dose Route Start Last Admin Trade Name Freq PRN Reason Stop Dose Admin Acetaminophen 650 mg 06/04/17 22:41 06/07/17 10:31 Tylenol - PO 650 mg Q4H PRN Administration FEVER OR PAIN Aspirin 81 mg 06/05/17 10:00 06/07/17 10:32 Ecotrin - PO 81 mg DAILY RADHA Administration Atorvastatin Calcium 80 mg 06/05/17 22:00 06/06/17 22:20 Lipitor - PO 80 mg HS RADHA Administration Clopidogrel Bisulfate 75 mg 06/05/17 10:00 06/07/17 10:32 Plavix - PO 75 mg DAILY RADHA Administration Collagenase 1 applic 06/05/17 10:00 06/07/17 10:32 Santyl - TP 1 applic DAILY RADHA Administration Docusate Sodium 100 mg 06/05/17 10:00 06/07/17 10:32 Colace - PO 100 mg BID RADHA Administration Enoxaparin Sodium 40 mg 06/05/17 10:00 06/07/17 10:31 Lovenox - SQ 40 mg DAILY RADHA Administration Hydralazine HCl 10 mg 06/06/17 14:00 06/07/17 05:36 Apresoline - PO 10 mg TID RADHA Administration Insulin Aspart 1 vial 06/05/17 07:00 06/07/17 06:32 Novolog Vial Sliding Scale - SQ Not Given ACHS [facility] Protocol Insulin Detemir 50 units 06/05/17 07:00 06/07/17 06:32 Levemir Vial SQ Not Given BIDI [facility] Isosorbide Mononitrate 30 mg 06/05/17 10:00 06/07/17 10:32 Imdur - PO 30 mg DAILY RADHA Administration Magnesium Oxide 400 mg 06/05/17 10:00 06/07/17 10:32 Mag-Ox - PO 400 mg BID RADHA Administration Metoprolol Succinate 50 mg 06/06/17 22:00 06/07/17 10:32 Toprol Xl - PO 50 mg BID RADHA Administration Morphine Sulfate 90 mg 06/06/17 14:00 06/07/17 05:36 Ms Contin - PO 90 mg TID RADHA Administration Oxycodone HCl 10 mg 06/04/17 22:37 06/07/17 10:31 Roxicodone - PO 10 mg Q6H PRN Administration PAIN Pantoprazole Sodium 40 mg 06/05/17 10:00 06/07/17 10:32 Protonix - PO 40 mg DAILY RADHA Administration Polyethylene Glycol 17 gm 06/04/17 22:37 Miralax (For Daily Use) - PO BID PRN CONSTIPATION Pregabalin 50 mg 06/05/17 10:00 06/07/17 10:32 Lyrica - PO 50 mg BID RADHA Administration Temazepam 30 mg 06/05/17 22:00 06/06/17 22:19 Restoril - PO 30 mg HS RADHA Administration Zolpidem Tartrate 10 mg 06/05/17 22:00 06/06/17 22:23 Ambien - PO 10 mg HS PRN Administration sleep Vital Signs Period Temp Pulse Resp BP Sys/Chandra Pulse Ox Last 24 Hr 97.5 F-99.6 F 67-89 18-20 138-155/69-76 96 Constitutional: Yes: Well Nourished, No Distress Eyes: No: Sclera Icterus Respiratory: Yes: CTA Bilaterally (decr diffusely, more so at R base). No: Accessory Muscle Use, Rales, Wheezes Gastrointestinal: Yes: Normal Bowel Sounds. No: Distention, Hepatomegaly, Palpable Mass, Tenderness Cardiovascular: Yes: Regular Rate and Rhythm JVD: no Heart Sounds: Yes: S1, S2. No: Gallop Murmur: No: Systolic Murmur, Diastolic Murmur Extremities: No: Cold, Cyanosis Edema: No Integumentary: No: Jaundice diaphoresis Neurological: Yes: Alert, Oriented (x3) Psychiatric: No: Agitated - Other Data Labs, Other Data: CBC, BMP 06/07/17 05:48 06/07/17 05:48 tele: /reema Imaging - Results Chest X-ray: Report Reviewed, Image Reviewed Echo 05/15: mod to sev decr LVEF; severe hypokinesis of all lindsey except basal segments. nl RV. mild MR/TR. no peric eff. Echo 01/2017: mild global HK, lvef 45-50, nl rv, nl rvsp, mild lae, mild tr Echo 12/2016: TDS; LVSF is "at least mildly reduced: RWM assessment tds; nl RV; nl LA; mild MR/TR; no veg seen (Gitig review: EF mod-severely decr'd, ? global (cannot accurately assess for RWMAs)--suspect EF is 35-40%.) Echo 04/2015: mod global HK; RV tds; trace AI LHC 05/15: 70-80% mRCA (ISR), 70-80% RPDA (ISR); 70-80% mLAD; 80-90% pLCX (small vessel); 90-95% OM2 (large vessel); 80-90% prox Ramus (large vessel) ...nonobstructive dz of note [id number]% ostial RCA, 50-60% eccentric lesion OM1 (large vessel); EDP 30-->25 post-nitro EF 38% (diffuse WMAs) Syntax score 20 CXR, reviewed by gitig: likely pulmonary edema pattern bilaterally (moderate), similar to prior though increased R lower (decreased L lower vs prior). no effusions EKG: NSR, old IWMI, nonsp ST-Ts lateral leads--no change vs prior 05/15 a/p: acute hypoxic resp failure: -low grade fever 100.7 -suspect acute chf component -RLL infiltrate -received lasix 40 iv qd in ER with little UOP (approx 200cc on urinal marking per pt estimate) -rpt lasix 80 iv x 1 06/05 and 06/06 Was previously on lasix 80 qd as outpt (prior to last admit)--? what was taking since [place] d/c one week ago (pt doesn't know , administers meds) -defer abx to PMD/ID CAD: -s/p PCI (LIBBY) to 100% occl RPDA in 2004 ([facility]) with patent prior RCA stents at that time, EF 50% then; -s/p anterior STEMI 2011 with [place] LIBBY x 2 to mid LAD then ([facility]); residual dz then included 80% prox D1 (large vessel), 95% mD1; 70%mRCA (pre and post prior stents), 70% dCFX; (also 40% RPDA; 60% pCFX; 40% mCFX;) EF then 37% with AK of apex/AL lindsey and AK of IW; -s/p NSTEMI 05/15 in setting of sepsis/PNA possible trigger -extensive multivessel CAD at cath (as above)--pt offered cabg at [place] but he declined, was discharged home on 05/28 -now states he is amenable to CABG--if remains without ischemic signs/sx's, will wait on transfer to [place] for this until infectious and anemia issues are better clarified and clearly inactive -has repeatedly refused regular cardio (used to see roddy suarez, stopped going , we see him in hospital every time but he declines f/u with us in office) -was on ASA and plavix from before (for recurrent CVAs) -was on BB, high intensity statin -trop neg x 2 here - 06/06-: con't, bb, statin, dapt. isch CMP/acute syst CHF exacerbation: -moderately decr'd EF 05/15 -cont bb, hydralazine/nitrates -per pmd office records, pt was on ramipril in past, creat went up to 2.5 so it was stopped close to 2 yrs ago. given pt's repeated failure to follow up regularly in office with us, i would not rec resuming WENDY trial as he will need very frequent outpt labs monitoring. if he decides to follow with cardio regularly, can try lower effective dose ( e.g. lisinopril 2.5) than what he was previously on, and try titrate up slowly. currently on alternative hydral/imdur combo. con't for now. - 06/06: Will redose lasix today. Cr improving with diuresis. -06/07: cr improving, wt down, cont with lasix 80 iv today as well HTN: -cont current meds h/o CVA: -dx'd lacunar infarct 02/10 clinically then (slurred speech) -? acute CVA/TIA 11/13, seen by neuro then--ASA added to prior plavix at that time -same meds BRANT on CKD: -cr freq fluctuates 1.5-2.9 on past admits here, most recently 1.3-1.5 in 03/15 -renal fxn improving here with diuresis. 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 monitor with uptitration of bb.
[2017-06-07] MEDS ORDERED: FUROSEMIDE 40 MG/4 ML INJECTABLE VIAL IVPUSH ONE (11:45)
[2017-06-07 12:00] LABS: PLATELET ESTIMATE ADEQUATE (NORMAL)
[2017-06-07] MEDS ORDERED: FUROSEMIDE 40 MG/4 ML INJECTABLE VIAL ONE (12:19)
[2017-06-07] MEDS ORDERED: INSULIN (NOVOLOG) ASPART 100 UNITS/ML 10ML VIAL ONE (17:25)
--- NOTE | 2017-06-07 17:59 | PN ---
Progress Note, Physician History of Present Illness: patent doing well no new issues says he feels well - Current Medication List Current Medications: Active Medications Acetaminophen (Tylenol -) 650 mg PO Q4H PRN PRN Reason: FEVER OR PAIN Last Admin: 06/07/17 16:43 Dose: 650 mg Aspirin (Ecotrin -) 81 mg PO DAILY [facility] Last Admin: 06/07/17 10:32 Dose: 81 mg Atorvastatin Calcium (Lipitor -) 80 mg PO HS [facility] Last Admin: 06/06/17 22:20 Dose: 80 mg Clopidogrel Bisulfate (Plavix -) 75 mg PO DAILY [facility] Last Admin: 06/07/17 10:32 Dose: 75 mg Collagenase (Santyl -) 1 applic TP DAILY [facility] Last Admin: 06/07/17 16:43 Dose: 1 applic Docusate Sodium (Colace -) 100 mg PO BID [facility] Last Admin: 06/07/17 10:32 Dose: 100 mg Enoxaparin Sodium (Lovenox -) 40 mg SQ DAILY [facility] Last Admin: 06/07/17 10:31 Dose: 40 mg Hydralazine HCl (Apresoline -) 10 mg PO TID [facility] Last Admin: 06/07/17 14:03 Dose: 10 mg Insulin Aspart (Novolog Vial Sliding Scale -) 1 vial SQ ACHS [facility] PRN Reason: Protocol Last Admin: 06/07/17 17:30 Dose: 2 unit Insulin Detemir (Levemir Vial) 50 units SQ BIDI [facility] Last Admin: 06/07/17 17:30 Dose: 50 unit Isosorbide Mononitrate (Imdur -) 30 mg PO DAILY [facility] Last Admin: 06/07/17 10:32 Dose: 30 mg Magnesium Oxide (Mag-Ox -) 400 mg PO BID [facility] Last Admin: 06/07/17 10:32 Dose: 400 mg Metoprolol Succinate (Toprol Xl -) 50 mg PO BID [facility] Last Admin: 06/07/17 10:32 Dose: 50 mg Morphine Sulfate (Ms Contin -) 90 mg PO TID [facility] Last Admin: 06/07/17 14:03 Dose: 90 mg Oxycodone HCl (Roxicodone -) 10 mg PO Q6H PRN PRN Reason: PAIN Last Admin: 06/07/17 16:43 Dose: 10 mg Pantoprazole Sodium (Protonix -) 40 mg PO DAILY [facility] Last Admin: 06/07/17 10:32 Dose: 40 mg Polyethylene Glycol (Miralax (For Daily Use) -) 17 gm PO BID PRN PRN Reason: CONSTIPATION Pregabalin (Lyrica -) 50 mg PO BID [facility] Last Admin: 06/07/17 10:32 Dose: 50 mg Temazepam (Restoril -) 30 mg PO HS [facility] Last Admin: 06/06/17 22:19 Dose: 30 mg Zolpidem Tartrate (Ambien -) 10 mg PO HS PRN PRN Reason: sleep Last Admin: 06/06/17 22:23 Dose: 10 mg - Objective Vital Signs: Vital Signs Temperature 98.4 F 06/07/17 14:00 Pulse Rate 74 06/07/17 14:00 Respiratory Rate 20 06/07/17 14:00 Blood Pressure 111/55 06/07/17 14:00 O2 Sat by Pulse Oximetry (%) 94 L 06/07/17 09:00 Constitutional: Yes: No Distress, Calm Cardiovascular: Yes: S1, S2 Respiratory: Yes: Regular, Rhonchi Gastrointestinal: Yes: Normal Bowel Sounds, Soft Musculoskeletal: Yes: Other Extremities: Yes: Other (wound healing well) Wound/Incision: Yes: Clean/Dry, Dressing Dry and Intact Neurological: Yes: Alert, Oriented Psychiatric: Yes: Alert, Oriented Labs: CBC, BMP 06/07/17 05:48 06/07/17 05:48 INR, PTT INR 1.11 (0.82-1.09) 06/04/17 19:00 Assessment/Plan Problem List - Problems (1) Congestive heart failure (CHF) Code(s): I50.9 - HEART FAILURE, UNSPECIFIED Qualifiers: Congestive heart failure type: systolic Congestive heart failure chronicity: chronic Qualified Code(s): I50.22 - Chronic systolic ( congestive) heart failure (2) Fever Code(s): R50.9 - FEVER, UNSPECIFIED (3) Renal failure (ARF), acute on chronic Code(s): N17.9 - ACUTE KIDNEY FAILURE, UNSPECIFIED N18.9 - CHRONIC KIDNEY DISEASE, UNSPECIFIED (4) Acute respiratory failure Code(s): J96.00 - ACUTE RESPIRATORY FAILURE, UNSP W HYPOXIA OR HYPERCAPNIA (5) CAD (coronary artery disease) Code(s): I25.10 - ATHSCL HEART DISEASE OF [place] CORONARY ARTERY W/O ANG PCTRS Qualifiers: (6) COPD (chronic obstructive pulmonary disease) Code(s): J44.9 - CHRONIC OBSTRUCTIVE PULMONARY DISEASE, UNSPECIFIED (7) Diabetes mellitus Code(s): E11.9 - TYPE 2 DIABETES MELLITUS WITHOUT COMPLICATIONS Qualifiers: Diabetes mellitus type: type 2 Diabetes mellitus complication status: with circulatory complication Diabetes mellitus complication detail: with peripheral angiopathy with gangrene Diabetes mellitus termite exterminator helper insulin use : with fpc use Qualified Code(s): E11.52 - Type 2 diabetes mellitus with diabetic peripheral angiopathy with gangrene; Z79.4 - halfway ( current) use of insulin (8) Hyperlipidemia Code(s): E78.5 - HYPERLIPIDEMIA, UNSPECIFIED (9) Hypertension Code(s): I10 - ESSENTIAL (PRIMARY) HYPERTENSION 10 gm positive bacteremia plan organism noted will not give any iv abx will start on oral abx patient doing well will give it for another 3 days
[2017-06-07] MEDS: AZITHROMYCIN 250 MG TABLET (FP) PO SCH (18:13)
[2017-06-07] MEDS: ATORVASTATIN CA 40 MG TABLET (FP) PO SCH (21:51)
[2017-06-07] MEDS: TEMAZEPAM 15 MG CAPSULE PO SCH (21:51)
[2017-06-07] MEDS: ZOLPIDEM TARTRATE 5 MG TABLET PO PRN (23:05)
[2017-06-08] MEDS: ACETAMINOPHEN 325 MG TABLET (FP) PO PRN ×3 (03:04→17:37)
[2017-06-08] MEDS: oxyCODONE HCL 5 MG TABLET PO PRN ×3 (03:04→17:36)
[2017-06-08] MEDS: hydrALAZINE HCL 10 MG TABLET PO SCH ×3 (06:06→22:36)
[2017-06-08] MEDS: morphine SO4 SUSTAINED ACTING 30 MG TABLET.SA PO SCH ×3 (06:07→22:37)
[2017-06-08] MEDS: INSULIN SLIDING SCALE (NOVOLOG) 1 VIAL SQ SCH ×4 (06:10→22:15)
[2017-06-08] MEDS: INSULIN DETEMIR 100 UNITS/ML MDV SQ SCH ×2 (06:19→18:01)
[2017-06-08 07:56] LABS: MCH 27.5 pg (25.7-33.7); MCHC 31.8 g/dl (32.0-35.9); MEAN CELL VOLUME 86.5 fl (80-96); MEAN PLT VOLUME 7.8 fl (7.5-11.1); PLATELET COUNT 332 K/MM3 (134-434); RDW 16.5 % (11.9-15.9); WHITE BLOOD COUNT 10.5 K/mm3 (4.0-10.0)
[2017-06-08 09:06] LABS: ANISOCYTOSIS 1+; HYPOCHROMIA 1+; MICROCYTOSIS FEW; PLATELET ESTIMATE ADEQUATE (NORMAL); POLYCHROMASIA 1+
[2017-06-08] MEDS: CLOPIDOGREL BISULFATE 75 MG TABLET (FP) PO SCH (09:15)
[2017-06-08] MEDS: PANTOPRAZOLE 40 MG TABLET (FP) PO SCH (09:15)
[2017-06-08] MEDS: DOCUSATE SODIUM 100 MG CAPSULE (FP) PO SCH ×2 (09:15→22:36)
[2017-06-08] MEDS: MAGNESIUM OXIDE 400 MG TABLET (FP) PO SCH ×2 (09:15→22:11)
[2017-06-08] MEDS: AZITHROMYCIN 250 MG TABLET (FP) PO SCH (09:16)
[2017-06-08] MEDS: ASPIRIN COATED 81 MG TABLET.EC PO SCH (09:16)
[2017-06-08] MEDS: METOPROLOL SUCCINATE 50 MG TAB.SR.24H (FP) PO SCH ×2 (09:16→22:12)
[2017-06-08] MEDS: ISOSORBIDE MONONITRATE 30 MG TAB.SR.24H (FP) PO SCH (09:16)
[2017-06-08] MEDS: PREGABALIN 25 MG CAPSULE PO SCH ×2 (09:26→22:11)
[2017-06-08] MEDS: ENOXAPARIN NA (PORCINE) 40 MG/0.4 ML DISP.SYRIN SQ SCH (09:28)
[2017-06-08 10:03] LABS: CALCIUM 9.1 mg/dL (8.5-10.1); CREATININE 1.5 mg/dL (0.7-1.3); GLUCOSE,RANDOM 83 mg/dL (74-106); MAGNESIUM 2.1 mg/dL (1.8-2.4); PHOSPHOROUS 5.3 mg/dL (2.5-4.9)
[2017-06-08 10:38] LABS: ANION GAP 7 (8-16); CO2 32 mmol/L (21-32)
--- NOTE | 2017-06-08 11:03 | PN ---
Progress Note, Physician Chief Complaint: Mr Scott complains of being tired and short of breath. No cp or n/v. - Current Medication List Current Medications: Active Medications Acetaminophen (Tylenol -) 650 mg PO Q4H PRN PRN Reason: FEVER OR PAIN Last Admin: 06/08/17 03:04 Dose: 650 mg Aspirin (Ecotrin -) 81 mg PO DAILY [facility] Last Admin: 06/08/17 09:16 Dose: 81 mg Atorvastatin Calcium (Lipitor -) 80 mg PO HS [facility] Last Admin: 06/07/17 21:51 Dose: 80 mg Azithromycin (Zithromax -) 500 mg PO DAILY [facility] Last Admin: 06/08/17 09:16 Dose: 500 mg Clopidogrel Bisulfate (Plavix -) 75 mg PO DAILY [facility] Last Admin: 06/08/17 09:15 Dose: 75 mg Collagenase (Santyl -) 1 applic TP DAILY [facility] Last Admin: 06/07/17 16:43 Dose: 1 applic Docusate Sodium (Colace -) 100 mg PO BID [facility] Last Admin: 06/08/17 09:15 Dose: 100 mg Enoxaparin Sodium (Lovenox -) 40 mg SQ DAILY [facility] Last Admin: 06/08/17 09:28 Dose: 40 mg Hydralazine HCl (Apresoline -) 10 mg PO TID [facility] Last Admin: 06/08/17 06:06 Dose: 10 mg Insulin Aspart (Novolog Vial Sliding Scale -) 1 vial SQ ACHS [facility] PRN Reason: Protocol Last Admin: 06/08/17 06:10 Dose: Not Given Insulin Detemir (Levemir Vial) 50 units SQ BIDI [facility] Last Admin: 06/08/17 06:19 Dose: Not Given Isosorbide Mononitrate (Imdur -) 30 mg PO DAILY [facility] Last Admin: 06/08/17 09:16 Dose: 30 mg Magnesium Oxide (Mag-Ox -) 400 mg PO BID [facility] Last Admin: 06/08/17 09:15 Dose: 400 mg Metoprolol Succinate (Toprol Xl -) 50 mg PO BID [facility] Last Admin: 06/08/17 09:16 Dose: 50 mg Morphine Sulfate (Ms Contin -) 90 mg PO TID [facility] Last Admin: 06/08/17 06:07 Dose: 90 mg Oxycodone HCl (Roxicodone -) 10 mg PO Q6H PRN PRN Reason: PAIN Last Admin: 06/08/17 03:04 Dose: 10 mg Pantoprazole Sodium (Protonix -) 40 mg PO DAILY [facility] Last Admin: 06/08/17 09:15 Dose: 40 mg Polyethylene Glycol (Miralax (For Daily Use) -) 17 gm PO BID PRN PRN Reason: CONSTIPATION Pregabalin (Lyrica -) 50 mg PO BID [facility] Last Admin: 06/08/17 09:26 Dose: 50 mg Temazepam (Restoril -) 30 mg PO HS [facility] Last Admin: 06/07/17 21:51 Dose: 30 mg Zolpidem Tartrate (Ambien -) 10 mg PO HS PRN PRN Reason: sleep Last Admin: 06/07/17 23:05 Dose: 10 mg - Objective Vital Signs: Vital Signs Temperature 36.8 C 06/08/17 06:00 Pulse Rate 61 06/08/17 06:00 Respiratory Rate 20 06/08/17 06:00 Blood Pressure 107/52 06/08/17 06:00 O2 Sat by Pulse Oximetry (%) 98 06/07/17 21:00 Constitutional: Yes: Well Nourished, No Distress, Calm Cardiovascular: Yes: Regular Rate and Rhythm. No: Gallop, Murmur, Rub Respiratory: Yes: Regular, CTA Bilaterally, On Nasal O2. No: Rales, Rhonchi, Wheezes Gastrointestinal: Yes: Normal Bowel Sounds, Soft. No: Distention, Tenderness Extremities: Yes: WNL Edema: No Labs: CBC, BMP 06/08/17 06:05 06/08/17 06:05 INR, PTT INR 1.11 (0.82-1.09) 06/04/17 19:00 Problem List - Problems (1) Congestive heart failure (CHF) Code(s): I50.9 - HEART FAILURE, UNSPECIFIED Qualifiers: Congestive heart failure type: systolic Congestive heart failure chronicity: chronic Qualified Code(s): I50.22 - Chronic systolic ( congestive) heart failure (2) Fever Code(s): R50.9 - FEVER, UNSPECIFIED (3) Renal failure (ARF), acute on chronic Code(s): N17.9 - ACUTE KIDNEY FAILURE, UNSPECIFIED N18.9 - CHRONIC KIDNEY DISEASE, UNSPECIFIED (4) Acute respiratory failure Code(s): J96.00 - ACUTE RESPIRATORY FAILURE, UNSP W HYPOXIA OR HYPERCAPNIA (5) CAD (coronary artery disease) Code(s): I25.10 - ATHSCL HEART DISEASE OF [place] CORONARY ARTERY W/O ANG PCTRS Qualifiers: (6) COPD (chronic obstructive pulmonary disease) Code(s): J44.9 - CHRONIC OBSTRUCTIVE PULMONARY DISEASE, UNSPECIFIED (7) Diabetes mellitus Code(s): E11.9 - TYPE 2 DIABETES MELLITUS WITHOUT COMPLICATIONS Qualifiers: Diabetes mellitus type: type 2 Diabetes mellitus complication status: with circulatory complication Diabetes mellitus complication detail: with peripheral angiopathy with gangrene Diabetes mellitus nursing home insulin use : with lobsterman use Qualified Code(s): E11.52 - Type 2 diabetes mellitus with diabetic peripheral angiopathy with gangrene; Z79.4 - technician terminal and repeater ( current) use of insulin (8) Hyperlipidemia Code(s): E78.5 - HYPERLIPIDEMIA, UNSPECIFIED (9) Hypertension Code(s): I10 - ESSENTIAL (PRIMARY) HYPERTENSION Assessment/Plan (1) Congestive heart failure (CHF) Assessment/Plan: -well diuresed -creatinine slightly elevated -holding diuretics currently Code(s): I50.9 - HEART FAILURE, UNSPECIFIED Qualifiers: Congestive heart failure type: systolic Congestive heart failure chronicity: chronic Qualified Code(s): I50.22 - Chronic systolic ( congestive) heart failure (2) Fever Assessment/Plan: -fever has not recurred -positive blood culture staph epi, suspect contaminant -repeat blood cultures negative Code(s): R50.9 - FEVER, UNSPECIFIED (3) Renal failure (ARF), acute on chronic Assessment/Plan: -holding lasix Code(s): N17.9 - ACUTE KIDNEY FAILURE, UNSPECIFIED N18.9 - CHRONIC KIDNEY DISEASE, UNSPECIFIED (4) Acute respiratory failure Assessment/Plan: -resolved Code(s): J96.00 - ACUTE RESPIRATORY FAILURE, UNSP W HYPOXIA OR HYPERCAPNIA (5) CAD (coronary artery disease) Assessment/Plan: -3v CABG recommended -patient initially refused, now agreeable -cardiology following and medically managing -await results of blood cultures and recommendation of infectious disease before transferring Code(s): I25.10 - ATHSCL HEART DISEASE OF [place] CORONARY ARTERY W/O ANG PCTRS Qualifiers: (6) COPD (chronic obstructive pulmonary disease) Assessment/Plan: -continue home regimen Code(s): J44.9 - CHRONIC OBSTRUCTIVE PULMONARY DISEASE, UNSPECIFIED (7) Diabetes mellitus Assessment/Plan: -continue levemir and SSI -diabetic diet Code(s): E11.9 - TYPE 2 DIABETES MELLITUS WITHOUT COMPLICATIONS Qualifiers: Diabetes mellitus type: type 2 Diabetes mellitus complication status: with circulatory complication Diabetes mellitus complication detail: with peripheral angiopathy with gangrene Diabetes mellitus nursing home insulin use : with nursing home use Qualified Code(s): E11.52 - Type 2 diabetes mellitus with diabetic peripheral angiopathy with gangrene; Z79.4 - snf ( current) use of insulin (8) Hyperlipidemia Assessment/Plan: -continue statin Code(s): E78.5 - HYPERLIPIDEMIA, UNSPECIFIED (9) Hypertension Assessment/Plan: -continue hydralazine, toprol xl, and imdur -monitor Code(s): I10 - ESSENTIAL (PRIMARY) HYPERTENSION
[2017-06-08] MEDS: COLLAGENASE CLOSTRIDIUM HIST. 30 GRAMS TUBE TP SCH (11:09)
--- NOTE | 2017-06-08 12:29 | PN ---
Progress Note (short form) - Note Progress Note: s: no cp, palps, dizzy, +mild sob, no orthopnea Current Medications Generic Name Dose Route Start Last Admin Trade Name Manohar PRN Reason Stop Dose Admin Acetaminophen 650 mg 06/04/17 22:41 06/08/17 11:08 Tylenol - PO 650 mg Q4H PRN Administration FEVER OR PAIN Aspirin 81 mg 06/05/17 10:00 06/08/17 09:16 Ecotrin - PO 81 mg DAILY [facility] Administration Atorvastatin Calcium 80 mg 06/05/17 22:00 06/07/17 21:51 Lipitor - PO 80 mg HS [facility] Administration Azithromycin 500 mg 06/07/17 18:00 06/08/17 09:16 Zithromax - PO 500 mg DAILY [facility] Administration Clopidogrel Bisulfate 75 mg 06/05/17 10:00 06/08/17 09:15 Plavix - PO 75 mg DAILY [facility] Administration Collagenase 1 applic 06/05/17 10:00 06/08/17 11:09 Santyl - TP 1 applic DAILY [facility] Administration Docusate Sodium 100 mg 06/05/17 10:00 06/08/17 09:15 Colace - PO 100 mg BID [facility] Administration Enoxaparin Sodium 40 mg 06/05/17 10:00 06/08/17 09:28 Lovenox - SQ 40 mg DAILY [facility] Administration Hydralazine HCl 10 mg 06/06/17 14:00 06/08/17 06:06 Apresoline - PO 10 mg TID [facility] Administration Insulin Aspart 1 vial 06/05/17 07:00 06/08/17 11:09 Novolog Vial Sliding Scale - SQ Not Given ACHS [facility] Protocol Insulin Detemir 50 units 06/05/17 07:00 06/08/17 06:19 Levemir Vial SQ Not Given BIDI [facility] Isosorbide Mononitrate 30 mg 06/05/17 10:00 06/08/17 09:16 Imdur - PO 30 mg DAILY [facility] Administration Magnesium Oxide 400 mg 06/05/17 10:00 06/08/17 09:15 Mag-Ox - PO 400 mg BID [facility] Administration Metoprolol Succinate 50 mg 06/06/17 22:00 06/08/17 09:16 Toprol Xl - PO 50 mg BID [facility] Administration Morphine Sulfate 90 mg 06/06/17 14:00 06/08/17 06:07 Ms Contin - PO 90 mg TID [facility] Administration Oxycodone HCl 10 mg 06/04/17 22:37 06/08/17 11:07 Roxicodone - PO 10 mg Q6H PRN Administration PAIN Pantoprazole Sodium 40 mg 06/05/17 10:00 06/08/17 09:15 Protonix - PO 40 mg DAILY [facility] Administration Polyethylene Glycol 17 gm 06/04/17 22:37 Miralax (For Daily Use) - PO BID PRN CONSTIPATION Pregabalin 50 mg 06/05/17 10:00 06/08/17 09:26 Lyrica - PO 50 mg BID [facility] Administration Temazepam 30 mg 06/05/17 22:00 06/07/17 21:51 Restoril - PO 30 mg HS [facility] Administration Zolpidem Tartrate 10 mg 06/05/17 22:00 06/07/17 23:05 Ambien - PO 10 mg HS PRN Administration sleep Vital Signs Period Temp Pulse Resp BP Sys/Chandra Pulse Ox Last 24 Hr 97.5 F-98.4 F 56-74 18-20 107-140/52-78 97-98 Constitutional: Yes: Well Nourished, No Distress Eyes: No: Sclera Icterus Respiratory: Yes: CTA Bilaterally (decr diffusely, more so at R base). No: Accessory Muscle Use, Rales, Wheezes Gastrointestinal: Yes: Normal Bowel Sounds. No: Distention, Hepatomegaly, Palpable Mass, Tenderness Cardiovascular: Yes: Regular Rate and Rhythm JVD: no Heart Sounds: Yes: S1, S2. No: Gallop Murmur: No: Systolic Murmur, Diastolic Murmur Extremities: No: Cold, Cyanosis Edema: No Integumentary: No: Jaundice diaphoresis Neurological: Yes: Alert, Oriented (x3) Psychiatric: No: Agitated - Other Data Labs, Other Data: CBC, BMP 06/08/17 06:05 06/08/17 06:05 tele: /reema Imaging - Results Chest X-ray: Report Reviewed, Image Reviewed Echo 05/15: mod to sev decr LVEF; severe hypokinesis of all lindsey except basal segments. nl RV. mild MR/TR. no peric eff. Echo 01/2017: mild global HK, lvef 45-50, nl rv, nl rvsp, mild lae, mild tr Echo 12/2016: TDS; LVSF is "at least mildly reduced: RWM assessment tds; nl RV; nl LA; mild MR/TR; no veg seen (Gitig review: EF mod-severely decr'd, ? global (cannot accurately assess for RWMAs)--suspect EF is 35-40%.) Echo 04/2015: mod global HK; RV tds; trace AI C 05/15: 70-80% mRCA (ISR), 70-80% RPDA (ISR); 70-80% mLAD; 80-90% pLCX (small vessel); 90-95% OM2 (large vessel); 80-90% prox Ramus (large vessel) ...nonobstructive dz of note -84% ostial RCA, 50-60% eccentric lesion OM1 (large vessel); EDP 30-->25 post-nitro EF 38% (diffuse WMAs) Syntax score 20 CXR, reviewed by gitig: likely pulmonary edema pattern bilaterally (moderate), similar to prior though increased R lower (decreased L lower vs prior). no effusions EKG: NSR, old IWMI, nonsp ST-Ts lateral leads--no change vs prior 05/15 a/p: acute hypoxic resp failure: -low grade fever 100.7, RLL infiltrate -suspect acute chf component as well so got several doses of iv lasix and now cr starting to rise so will hold diuretic for now -abx per ID CAD: -s/p PCI (LIBBY) to 100% occl RPDA in 2004 ([facility]) with patent prior RCA stents at that time, EF 50% then; -s/p anterior STEMI 2011 with [place] LIBBY x 2 to mid LAD then ([place]); residual dz then included 80% prox D1 (large vessel), 95% mD1; 70%mRCA (pre and post prior stents), 70% dCFX; (also 40% RPDA; 60% pCFX; 40% mCFX;) EF then 37% with AK of apex/AL lindsey and AK of IW; -s/p NSTEMI 05/15 in setting of sepsis/PNA possible trigger -extensive multivessel CAD at cath (as above)--pt offered cabg at [place] but he declined, was discharged home on 05/28 -now states he is amenable to CABG--if remains without ischemic signs/sx's, will wait on transfer to [place] for this until infectious and anemia issues are better clarified and clearly inactive -has repeatedly refused regular cardio (used to see roddy suarez, stopped going , we see him in hospital every time but he declines f/u with us in office) -was on ASA and plavix from before (for recurrent CVAs) -was on BB, high intensity statin -trop neg x 2 here - 06/06-10: con't, bb, statin, dapt. isch CMP/acute syst CHF exacerbation: -moderately decr'd EF 05/15 -cont bb, hydralazine/nitrates -per pmd office records, pt was on ramipril in past, creat went up to 2.5 so it was stopped close to 2 yrs ago. given pt's repeated failure to follow up regularly in office with us, i would not rec resuming WENDY trial as he will need very frequent outpt labs monitoring. if he decides to follow with cardio regularly, can try lower effective dose ( e.g. lisinopril 2.5) than what he was previously on, and try titrate up slowly. currently on alternative hydral/imdur combo. con't for now. -got several doses of iv lasix and now cr starting to rise so will hold diuretic for now, start po when cr stable HTN: -cont current meds h/o CVA: -dx'd lacunar infarct 02/10 clinically then (slurred speech) -? acute CVA/TIA 11/13, seen by neuro then--ASA added to prior plavix at that time -same meds BRANT on CKD: -cr freq fluctuates 1.5-2.9 on past admits here, most recently 1.3-1.5 in 03/15 -got several doses of iv lasix and now cr starting to rise so will hold diuretic for now, start po when cr stable anemia: -prior hgb range 9s-11s -hgb 8s here -stool guaiac, iron studies -may need further w/u of occult GIB if going to consider PCI with obligatory prolonged DAPT regimen (has tolerated DAPT long time thus far, for CVA sec prevention regimen) yue [place] 2nd degree AVB, chronic: -seen on tele here, no significant pauses, benign. monitor with uptitration of bb.
[2017-06-08] MEDS: ATORVASTATIN CA 40 MG TABLET (FP) PO SCH (22:10)
[2017-06-08] MEDS: TEMAZEPAM 15 MG CAPSULE PO SCH (22:11)
[2017-06-08] MEDS: ZOLPIDEM TARTRATE 5 MG TABLET PO PRN (22:40)
[2017-06-09] MEDS: ACETAMINOPHEN 325 MG TABLET (FP) PO PRN ×3 (02:09→17:52)
[2017-06-09] MEDS: oxyCODONE HCL 5 MG TABLET PO PRN ×3 (02:10→17:50)
[2017-06-09] MEDS: hydrALAZINE HCL 10 MG TABLET PO SCH ×3 (06:21→22:22)
[2017-06-09] MEDS: morphine SO4 SUSTAINED ACTING 30 MG TABLET.SA PO SCH ×3 (06:21→22:21)
[2017-06-09] MEDS: INSULIN DETEMIR 100 UNITS/ML MDV SQ SCH ×2 (06:22→16:58)
[2017-06-09] MEDS: INSULIN SLIDING SCALE (NOVOLOG) 1 VIAL SQ SCH ×4 (06:23→22:22)
[2017-06-09 07:46] LABS: MCH 27.8 pg (25.7-33.7); MCHC 32.3 g/dl (32.0-35.9); MEAN CELL VOLUME 86.2 fl (80-96); PLATELET COUNT 320 K/MM3 (134-434); RDW 16.5 % (11.9-15.9); WHITE BLOOD COUNT 10.2 K/mm3 (4.0-10.0)
[2017-06-09 08:19] LABS: ANION GAP 6 (8-16); CALCIUM 8.8 mg/dL (8.5-10.1); CO2 33 mmol/L (21-32); CREATININE 1.6 mg/dL (0.7-1.3); GLUCOSE,RANDOM 118 mg/dL (74-106); MAGNESIUM 2.2 mg/dL (1.8-2.4); PHOSPHOROUS 5.4 mg/dL (2.5-4.9)
[2017-06-09] MEDS: ISOSORBIDE MONONITRATE 30 MG TAB.SR.24H (FP) PO SCH (09:05)
[2017-06-09] MEDS: PANTOPRAZOLE 40 MG TABLET (FP) PO SCH (09:05)
[2017-06-09] MEDS: MAGNESIUM OXIDE 400 MG TABLET (FP) PO SCH ×2 (09:06→22:22)
[2017-06-09] MEDS: METOPROLOL SUCCINATE 50 MG TAB.SR.24H (FP) PO SCH ×2 (09:06→22:21)
[2017-06-09] MEDS: CLOPIDOGREL BISULFATE 75 MG TABLET (FP) PO SCH (09:06)
[2017-06-09] MEDS: AZITHROMYCIN 250 MG TABLET (FP) PO SCH (09:06)
[2017-06-09] MEDS: ASPIRIN COATED 81 MG TABLET.EC PO SCH (09:06)
[2017-06-09] MEDS: PREGABALIN 25 MG CAPSULE PO SCH (09:06)
[2017-06-09] MEDS: ENOXAPARIN NA (PORCINE) 40 MG/0.4 ML DISP.SYRIN SQ SCH (09:06)
[2017-06-09] MEDS: COLLAGENASE CLOSTRIDIUM HIST. 30 GRAMS TUBE TP SCH (09:07)
[2017-06-09] MEDS: DOCUSATE SODIUM 100 MG CAPSULE (FP) PO SCH ×2 (09:09→22:22)
--- NOTE | 2017-06-09 11:29 | PN ---
Progress Note, Physician Chief Complaint: Mr Scott is without complaint. Denies cp, sob, n/v. - Current Medication List Current Medications: Active Medications Acetaminophen (Tylenol -) 650 mg PO Q4H PRN PRN Reason: FEVER OR PAIN Last Admin: 06/09/17 02:09 Dose: 650 mg Aspirin (Ecotrin -) 81 mg PO DAILY [facility] Last Admin: 06/09/17 09:06 Dose: 81 mg Atorvastatin Calcium (Lipitor -) 80 mg PO HS [facility] Last Admin: 06/08/17 22:10 Dose: 80 mg Azithromycin (Zithromax -) 500 mg PO DAILY [facility] Last Admin: 06/09/17 09:06 Dose: 500 mg Clopidogrel Bisulfate (Plavix -) 75 mg PO DAILY [facility] Last Admin: 06/09/17 09:06 Dose: 75 mg Collagenase (Santyl -) 1 applic TP DAILY [facility] Last Admin: 06/09/17 09:07 Dose: 1 applic Docusate Sodium (Colace -) 100 mg PO BID [facility] Last Admin: 06/09/17 09:09 Dose: 100 mg Enoxaparin Sodium (Lovenox -) 40 mg SQ DAILY [facility] Last Admin: 06/09/17 09:06 Dose: 40 mg Hydralazine HCl (Apresoline -) 10 mg PO TID [facility] Last Admin: 06/09/17 06:21 Dose: 10 mg Insulin Aspart (Novolog Vial Sliding Scale -) 1 vial SQ ACHS [facility] PRN Reason: Protocol Last Admin: 06/09/17 11:27 Dose: Not Given Insulin Detemir (Levemir Vial) 50 units SQ BIDI [facility] Last Admin: 06/09/17 06:22 Dose: Not Given Isosorbide Mononitrate (Imdur -) 30 mg PO DAILY [facility] Last Admin: 06/09/17 09:05 Dose: 30 mg Magnesium Oxide (Mag-Ox -) 400 mg PO BID [facility] Last Admin: 06/09/17 09:06 Dose: 400 mg Metoprolol Succinate (Toprol Xl -) 50 mg PO BID [facility] Last Admin: 06/09/17 09:06 Dose: 50 mg Morphine Sulfate (Ms Contin -) 90 mg PO TID [facility] Last Admin: 06/09/17 06:21 Dose: 90 mg Oxycodone HCl (Roxicodone -) 10 mg PO Q6H PRN PRN Reason: PAIN Last Admin: 06/09/17 02:10 Dose: 10 mg Pantoprazole Sodium (Protonix -) 40 mg PO DAILY [facility] Last Admin: 06/09/17 09:05 Dose: 40 mg Polyethylene Glycol (Miralax (For Daily Use) -) 17 gm PO BID PRN PRN Reason: CONSTIPATION Pregabalin (Lyrica -) 50 mg PO BID [facility] Last Admin: 06/09/17 09:06 Dose: 50 mg Temazepam (Restoril -) 30 mg PO HS [facility] Last Admin: 06/08/17 22:11 Dose: 30 mg Zolpidem Tartrate (Ambien -) 10 mg PO HS PRN PRN Reason: sleep Last Admin: 06/08/17 22:40 Dose: 10 mg - Objective Vital Signs: Vital Signs Temperature 36.6 C 06/09/17 09:00 Pulse Rate 65 06/09/17 09:00 Respiratory Rate 18 06/09/17 09:00 Blood Pressure 130/60 06/09/17 09:00 O2 Sat by Pulse Oximetry (%) 98 06/09/17 09:00 Constitutional: Yes: Well Nourished, No Distress, Calm Cardiovascular: Yes: Regular Rate and Rhythm. No: Gallop, Murmur, Rub Respiratory: Yes: Regular, CTA Bilaterally. No: Rales, Rhonchi, Wheezes Gastrointestinal: Yes: Normal Bowel Sounds, Soft. No: Distention, Tenderness Extremities: Yes: WNL Edema: No Labs: CBC, BMP 06/09/17 05:50 06/09/17 05:50 INR, PTT INR 1.11 (0.82-1.09) 06/04/17 19:00 Problem List - Problems (1) Congestive heart failure (CHF) Code(s): I50.9 - HEART FAILURE, UNSPECIFIED Qualifiers: Congestive heart failure type: systolic Congestive heart failure chronicity: chronic Qualified Code(s): I50.22 - Chronic systolic ( congestive) heart failure (2) Fever Code(s): R50.9 - FEVER, UNSPECIFIED (3) Renal failure (ARF), acute on chronic Code(s): N17.9 - ACUTE KIDNEY FAILURE, UNSPECIFIED N18.9 - CHRONIC KIDNEY DISEASE, UNSPECIFIED (4) Acute respiratory failure Code(s): J96.00 - ACUTE RESPIRATORY FAILURE, UNSP W HYPOXIA OR HYPERCAPNIA (5) CAD (coronary artery disease) Code(s): I25.10 - ATHSCL HEART DISEASE OF [place] CORONARY ARTERY W/O ANG PCTRS Qualifiers: (6) COPD (chronic obstructive pulmonary disease) Code(s): J44.9 - CHRONIC OBSTRUCTIVE PULMONARY DISEASE, UNSPECIFIED (7) Diabetes mellitus Code(s): E11.9 - TYPE 2 DIABETES MELLITUS WITHOUT COMPLICATIONS Qualifiers: Diabetes mellitus type: type 2 Diabetes mellitus complication status: with circulatory complication Diabetes mellitus complication detail: with peripheral angiopathy with gangrene Diabetes mellitus terminal gauger insulin use : with usp use Qualified Code(s): E11.52 - Type 2 diabetes mellitus with diabetic peripheral angiopathy with gangrene; Z79.4 - FPC ( current) use of insulin (8) Hyperlipidemia Code(s): E78.5 - HYPERLIPIDEMIA, UNSPECIFIED (9) Hypertension Code(s): I10 - ESSENTIAL (PRIMARY) HYPERTENSION Assessment/Plan (1) Congestive heart failure (CHF) Assessment/Plan: -well diuresed -cardiology following -holding diuretics Code(s): I50.9 - HEART FAILURE, UNSPECIFIED Qualifiers: Congestive heart failure type: systolic Congestive heart failure chronicity: chronic Qualified Code(s): I50.22 - Chronic systolic ( congestive) heart failure (2) Fever Assessment/Plan: -fever has not recurred -blood culture negative, no need for further antibiotics Code(s): R50.9 - FEVER, UNSPECIFIED (3) Renal failure (ARF), acute on chronic Assessment/Plan: -holding lasix Code(s): N17.9 - ACUTE KIDNEY FAILURE, UNSPECIFIED N18.9 - CHRONIC KIDNEY DISEASE, UNSPECIFIED (4) Acute respiratory failure Assessment/Plan: -resolved Code(s): J96.00 - ACUTE RESPIRATORY FAILURE, UNSP W HYPOXIA OR HYPERCAPNIA (5) CAD (coronary artery disease) Assessment/Plan: -3v CABG recommended -patient initially refused, now agreeable -cardiology following and medically managing -stable for transfer Code(s): I25.10 - ATHSCL HEART DISEASE OF [place] CORONARY ARTERY W/O ANG PCTRS Qualifiers: (6) COPD (chronic obstructive pulmonary disease) Assessment/Plan: -continue home regimen Code(s): J44.9 - CHRONIC OBSTRUCTIVE PULMONARY DISEASE, UNSPECIFIED (7) Diabetes mellitus Assessment/Plan: -continue levemir and SSI -diabetic diet Code(s): E11.9 - TYPE 2 DIABETES MELLITUS WITHOUT COMPLICATIONS Qualifiers: Diabetes mellitus type: type 2 Diabetes mellitus complication status: with circulatory complication Diabetes mellitus complication detail: with peripheral angiopathy with gangrene Diabetes mellitus terminal gauger insulin use : with terminal gauger use Qualified Code(s): E11.52 - Type 2 diabetes mellitus with diabetic peripheral angiopathy with gangrene; Z79.4 - intermediate frame tender ( current) use of insulin (8) Hyperlipidemia Assessment/Plan: -continue statin Code(s): E78.5 - HYPERLIPIDEMIA, UNSPECIFIED (9) Hypertension Assessment/Plan: -continue hydralazine, toprol xl, and imdur -monitor Code(s): I10 - ESSENTIAL (PRIMARY) HYPERTENSION
--- NOTE | 2017-06-09 11:38 | PN ---
Progress Note (short form) - Note Progress Note: s: no cp, palps, dizzy, +mild sob, no orthopnea Current Medications Generic Name Dose Route Start Last Admin Trade Name Manohar PRN Reason Stop Dose Admin Acetaminophen 650 mg 06/04/17 22:41 06/09/17 02:09 Tylenol - PO 650 mg Q4H PRN Administration FEVER OR PAIN Aspirin 81 mg 06/05/17 10:00 06/09/17 09:06 Ecotrin - PO 81 mg DAILY [facility] Administration Atorvastatin Calcium 80 mg 06/05/17 22:00 06/08/17 22:10 Lipitor - PO 80 mg HS [facility] Administration Azithromycin 500 mg 06/07/17 18:00 06/09/17 09:06 Zithromax - PO 500 mg DAILY [facility] Administration Clopidogrel Bisulfate 75 mg 06/05/17 10:00 06/09/17 09:06 Plavix - PO 75 mg DAILY [facility] Administration Collagenase 1 applic 06/05/17 10:00 06/09/17 09:07 Santyl - TP 1 applic DAILY [facility] Administration Docusate Sodium 100 mg 06/05/17 10:00 06/09/17 09:09 Colace - PO 100 mg BID [facility] Administration Enoxaparin Sodium 40 mg 06/05/17 10:00 06/09/17 09:06 Lovenox - SQ 40 mg DAILY [facility] Administration Hydralazine HCl 10 mg 06/06/17 14:00 06/09/17 06:21 Apresoline - PO 10 mg TID [facility] Administration Insulin Aspart 1 vial 06/05/17 07:00 06/09/17 11:27 Novolog Vial Sliding Scale - SQ Not Given ACHS [facility] Protocol Insulin Detemir 50 units 06/05/17 07:00 06/09/17 06:22 Levemir Vial SQ Not Given BIDI [facility] Isosorbide Mononitrate 30 mg 06/05/17 10:00 06/09/17 09:05 Imdur - PO 30 mg DAILY [facility] Administration Magnesium Oxide 400 mg 06/05/17 10:00 06/09/17 09:06 Mag-Ox - PO 400 mg BID [facility] Administration Metoprolol Succinate 50 mg 06/06/17 22:00 06/09/17 09:06 Toprol Xl - PO 50 mg BID [facility] Administration Morphine Sulfate 90 mg 06/06/17 14:00 06/09/17 06:21 Ms Contin - PO 90 mg TID [facility] Administration Oxycodone HCl 10 mg 06/04/17 22:37 06/09/17 02:10 Roxicodone - PO 10 mg Q6H PRN Administration PAIN Pantoprazole Sodium 40 mg 06/05/17 10:00 06/09/17 09:05 Protonix - PO 40 mg DAILY [facility] Administration Polyethylene Glycol 17 gm 06/04/17 22:37 Miralax (For Daily Use) - PO BID PRN CONSTIPATION Pregabalin 50 mg 06/05/17 10:00 06/09/17 09:06 Lyrica - PO 50 mg BID [facility] Administration Temazepam 30 mg 06/05/17 22:00 06/08/17 22:11 Restoril - PO 30 mg HS [facility] Administration Zolpidem Tartrate 10 mg 06/05/17 22:00 06/08/17 22:40 Ambien - PO 10 mg HS PRN Administration sleep Vital Signs Period Temp Pulse Resp BP Sys/Chandra Pulse Ox Last 24 Hr 97.8 F-98.9 F 62-69 18-20 115-133/47-73 96-98 Constitutional: Yes: Well Nourished, No Distress Eyes: No: Sclera Icterus Respiratory: Yes: CTA Bilaterally (decr diffusely, more so at R base). No: Accessory Muscle Use, Rales, Wheezes Gastrointestinal: Yes: Normal Bowel Sounds. No: Distention, Hepatomegaly, Palpable Mass, Tenderness Cardiovascular: Yes: Regular Rate and Rhythm JVD: no Heart Sounds: Yes: S1, S2. No: Gallop Murmur: No: Systolic Murmur, Diastolic Murmur Extremities: No: Cold, Cyanosis Edema: No Integumentary: No: Jaundice diaphoresis Neurological: Yes: Alert, Oriented (x3) Psychiatric: No: Agitated - Other Data Labs, Other Data: CBC, BMP 06/09/17 05:50 06/09/17 05:50 tele: /reema Imaging - Results Chest X-ray: Report Reviewed, Image Reviewed Echo 05/15: mod to sev decr LVEF; severe hypokinesis of all lindsey except basal segments. nl RV. mild MR/TR. no peric eff. Echo 01/2017: mild global HK, lvef 45-50, nl rv, nl rvsp, mild lae, mild tr Echo 12/2016: TDS; LVSF is "at least mildly reduced: RWM assessment tds; nl RV; nl LA; mild MR/TR; no veg seen (Gitig review: EF mod-severely decr'd, ? global (cannot accurately assess for RWMAs)--suspect EF is 35-40%.) Echo 04/2015: mod global HK; RV tds; trace AI C 05/15: 70-80% mRCA (ISR), 70-80% RPDA (ISR); 70-80% mLAD; 80-90% pLCX (small vessel); 90-95% OM2 (large vessel); 80-90% prox Ramus (large vessel) ...nonobstructive dz of note [id number]% ostial RCA, 50-60% eccentric lesion OM1 (large vessel); EDP 30-->25 post-nitro EF 38% (diffuse WMAs) Syntax score 20 CXR, reviewed by gitig: likely pulmonary edema pattern bilaterally (moderate), similar to prior though increased R lower (decreased L lower vs prior). no effusions EKG: NSR, old IWMI, nonsp ST-Ts lateral leads--no change vs prior 05/15 a/p: acute hypoxic resp failure: -low grade fever 100.7, RLL infiltrate -suspect acute chf component as well so got several doses of iv lasix and now cr starting to rise so will hold diuretic for now -abx now finished (for pna) as per ID CAD: -s/p PCI (LIBBY) to 100% occl RPDA in 2004 ([facility]) with patent prior RCA stents at that time, EF 50% then; -s/p anterior STEMI 2011 with [place] LIBBY x 2 to mid LAD then ([place]); residual dz then included 80% prox D1 (large vessel), 95% mD1; 70%mRCA (pre and post prior stents), 70% dCFX; (also 40% RPDA; 60% pCFX; 40% mCFX;) EF then 37% with AK of apex/AL lindsey and AK of IW; -s/p NSTEMI 05/15 in setting of sepsis/PNA possible trigger -extensive multivessel CAD at cath (as above)--pt offered cabg at [facility] but he declined, was discharged home on 05/28 -now states he is amenable to CABG--if remains without ischemic signs/sx's, will wait on transfer to [place] for this until infectious and anemia issues are better clarified and clearly inactive -has repeatedly refused regular cardio (used to see roddy suarez, stopped going , we see him in hospital every time but he declines f/u with us in office) -was on ASA and plavix from before (for recurrent CVAs) -was on BB, high intensity statin -trop neg x 2 here - 06/06-11: con't, bb, statin, dapt. isch CMP/acute syst CHF exacerbation: -moderately decr'd EF 05/15 -cont bb, hydralazine/nitrates -per pmd office records, pt was on ramipril in past, creat went up to 2.5 so it was stopped close to 2 yrs ago. given pt's repeated failure to follow up regularly in office with us, i would not rec resuming WENDY trial as he will need very frequent outpt labs monitoring. if he decides to follow with cardio regularly, can try lower effective dose ( e.g. lisinopril 2.5) than what he was previously on, and try titrate up slowly. currently on alternative hydral/imdur combo. con't for now. -got several doses of iv lasix and now cr starting to rise so will hold diuretic for now, start po when cr stable HTN: -cont current meds h/o CVA: -dx'd lacunar infarct 02/10 clinically then (slurred speech) -? acute CVA/TIA 11/13, seen by neuro then--ASA added to prior plavix at that time -same meds [facility] on CKD: -cr freq fluctuates 1.5-2.9 on past admits here, most recently 1.3-1.5 in 03/15 -got several doses of iv lasix and now cr starting to rise so will hold diuretic for now, start po when cr stable anemia: -prior hgb range 9s-11s -hgb 8s here -stool guaiac, iron studies -may need further w/u of occult GIB if going to consider PCI with obligatory prolonged DAPT regimen (has tolerated DAPT long time thus far, for CVA sec prevention regimen) yue [place] 2nd degree AVB, chronic: -seen on tele here, no significant pauses, benign. monitor with uptitration of bb. will contact [facility] in regards to timing of transfer for cabg now that infection has been treated and abx are done
[2017-06-09 11:56] LABS: PLATELET ESTIMATE ADEQUATE (NORMAL)
--- NOTE | 2017-06-09 17:36 | PN ---
Progress Note, Physician History of Present Illness: stable no issues - Current Medication List Current Medications: Active Medications Acetaminophen (Tylenol -) 650 mg PO Q4H PRN PRN Reason: FEVER OR PAIN Last Admin: 06/09/17 12:20 Dose: 650 mg Aspirin (Ecotrin -) 81 mg PO DAILY [facility] Last Admin: 06/09/17 09:06 Dose: 81 mg Atorvastatin Calcium (Lipitor -) 80 mg PO HS [facility] Last Admin: 06/08/17 22:10 Dose: 80 mg Clopidogrel Bisulfate (Plavix -) 75 mg PO DAILY [facility] Last Admin: 06/09/17 09:06 Dose: 75 mg Collagenase (Santyl -) 1 applic TP DAILY [facility] Last Admin: 06/09/17 09:07 Dose: 1 applic Docusate Sodium (Colace -) 100 mg PO BID [facility] Last Admin: 06/09/17 09:09 Dose: 100 mg Enoxaparin Sodium (Lovenox -) 40 mg SQ DAILY [facility] Last Admin: 06/09/17 09:06 Dose: 40 mg Hydralazine HCl (Apresoline -) 10 mg PO TID [facility] Last Admin: 06/09/17 13:46 Dose: 10 mg Insulin Aspart (Novolog Vial Sliding Scale -) 1 vial SQ ACHS [facility] PRN Reason: Protocol Last Admin: 06/09/17 16:58 Dose: Not Given Insulin Detemir (Levemir Vial) 50 units SQ BIDI [facility] Last Admin: 06/09/17 16:58 Dose: Not Given Isosorbide Mononitrate (Imdur -) 30 mg PO DAILY [facility] Last Admin: 06/09/17 09:05 Dose: 30 mg Magnesium Oxide (Mag-Ox -) 400 mg PO BID [facility] Last Admin: 06/09/17 09:06 Dose: 400 mg Metoprolol Succinate (Toprol Xl -) 50 mg PO BID [facility] Last Admin: 06/09/17 09:06 Dose: 50 mg Morphine Sulfate (Ms Contin -) 90 mg PO TID [facility] Last Admin: 06/09/17 13:45 Dose: 90 mg Oxycodone HCl (Roxicodone -) 10 mg PO Q4H PRN PRN Reason: PAIN Pantoprazole Sodium (Protonix -) 40 mg PO DAILY [facility] Last Admin: 06/09/17 09:05 Dose: 40 mg Polyethylene Glycol (Miralax (For Daily Use) -) 17 gm PO BID PRN PRN Reason: CONSTIPATION Pregabalin (Lyrica -) 50 mg PO DAILY [facility] Temazepam (Restoril -) 30 mg PO HS [facility] Last Admin: 06/08/17 22:11 Dose: 30 mg Zolpidem Tartrate (Ambien -) 10 mg PO HS PRN PRN Reason: sleep Last Admin: 06/08/17 22:40 Dose: 10 mg - Objective Vital Signs: Vital Signs Temperature 98.2 F 06/09/17 14:40 Pulse Rate 62 06/09/17 14:40 Respiratory Rate 18 06/09/17 14:40 Blood Pressure 124/62 06/09/17 14:40 O2 Sat by Pulse Oximetry (%) 98 06/09/17 09:00 Constitutional: Yes: No Distress, Calm Neck: Yes: Supple Cardiovascular: Yes: S1, S2 Respiratory: Yes: Regular, CTA Bilaterally Gastrointestinal: Yes: Normal Bowel Sounds, Soft Musculoskeletal: Yes: Other Extremities: Yes: Other Wound/Incision: Yes: Other (healing well) Neurological: Yes: Alert, Oriented Psychiatric: Yes: Alert, Oriented Labs: CBC, BMP 06/09/17 05:50 06/09/17 05:50 INR, PTT INR 1.11 (0.82-1.09) 06/04/17 19:00 Assessment/Plan Problem List - Problems (1) Congestive heart failure (CHF) Code(s): I50.9 - HEART FAILURE, UNSPECIFIED Qualifiers: Congestive heart failure type: systolic Congestive heart failure chronicity: chronic Qualified Code(s): I50.22 - Chronic systolic ( congestive) heart failure (2) Fever Code(s): R50.9 - FEVER, UNSPECIFIED (3) Renal failure (ARF), acute on chronic Code(s): N17.9 - ACUTE KIDNEY FAILURE, UNSPECIFIED N18.9 - CHRONIC KIDNEY DISEASE, UNSPECIFIED (4) Acute respiratory failure Code(s): J96.00 - ACUTE RESPIRATORY FAILURE, UNSP W HYPOXIA OR HYPERCAPNIA (5) CAD (coronary artery disease) Code(s): I25.10 - ATHSCL HEART DISEASE OF [place] CORONARY ARTERY W/O ANG PCTRS Qualifiers: (6) COPD (chronic obstructive pulmonary disease) Code(s): J44.9 - CHRONIC OBSTRUCTIVE PULMONARY DISEASE, UNSPECIFIED (7) Diabetes mellitus Code(s): E11.9 - TYPE 2 DIABETES MELLITUS WITHOUT COMPLICATIONS Qualifiers: Diabetes mellitus type: type 2 Diabetes mellitus complication status: with circulatory complication Diabetes mellitus complication detail: with peripheral angiopathy with gangrene Diabetes mellitus moth exterminator insulin use : with moth exterminator use Qualified Code(s): E11.52 - Type 2 diabetes mellitus with diabetic peripheral angiopathy with gangrene; Z79.4 - [facility] ( current) use of insulin (8) Hyperlipidemia Code(s): E78.5 - HYPERLIPIDEMIA, UNSPECIFIED (9) Hypertension Code(s): I10 - ESSENTIAL (PRIMARY) HYPERTENSION 10 gm positive bacteremia plan no abx patient [facility] patient to be in better shape before surgery pt/ot rest as per primary
[2017-06-09] MEDS: TEMAZEPAM 15 MG CAPSULE PO SCH (22:21)
[2017-06-09] MEDS: ZOLPIDEM TARTRATE 5 MG TABLET PO PRN (22:22)
[2017-06-09] MEDS: ATORVASTATIN CA 40 MG TABLET (FP) PO SCH (22:22)
[2017-06-10] MEDS: ACETAMINOPHEN 325 MG TABLET (FP) PO PRN ×2 (02:10→11:43)
[2017-06-10] MEDS: oxyCODONE HCL 5 MG TABLET PO PRN ×2 (02:10→11:40)
[2017-06-10] MEDS: hydrALAZINE HCL 10 MG TABLET PO SCH ×3 (06:15→14:06)
[2017-06-10] MEDS: morphine SO4 SUSTAINED ACTING 30 MG TABLET.SA PO SCH ×3 (06:15→14:06)
[2017-06-10] MEDS: INSULIN SLIDING SCALE (NOVOLOG) 1 VIAL SQ SCH ×2 (06:16→11:39)
[2017-06-10] MEDS: INSULIN DETEMIR 100 UNITS/ML MDV SQ SCH (06:16)
[2017-06-10 07:32] LABS: MCH 27.3 pg (25.7-33.7); MCHC 31.4 g/dl (32.0-35.9); MEAN CELL VOLUME 86.7 fl (80-96); MEAN PLT VOLUME 8.2 fl (7.5-11.1); PLATELET COUNT 299 K/MM3 (134-434); WHITE BLOOD COUNT 13.9 K/mm3 (4.0-10.0)
[2017-06-10 07:43] LABS: ANION GAP 9 (8-16); CALCIUM 8.7 mg/dL (8.5-10.1); CO2 31 mmol/L (21-32); CREATININE 1.7 mg/dL (0.7-1.3); GLUCOSE,RANDOM 130 mg/dL (74-106); MAGNESIUM 2.6 mg/dL (1.8-2.4); PHOSPHOROUS 5.7 mg/dL (2.5-4.9)
[2017-06-10] MEDS: DOCUSATE SODIUM 100 MG CAPSULE (FP) PO SCH (09:13)
[2017-06-10] MEDS: ENOXAPARIN NA (PORCINE) 40 MG/0.4 ML DISP.SYRIN SQ SCH (09:14)
[2017-06-10] MEDS: METOPROLOL SUCCINATE 50 MG TAB.SR.24H (FP) PO SCH (09:14)
[2017-06-10] MEDS: CLOPIDOGREL BISULFATE 75 MG TABLET (FP) PO SCH (09:14)
[2017-06-10] MEDS: ASPIRIN COATED 81 MG TABLET.EC PO SCH (09:14)
[2017-06-10] MEDS: PANTOPRAZOLE 40 MG TABLET (FP) PO SCH (09:14)
[2017-06-10] MEDS: MAGNESIUM OXIDE 400 MG TABLET (FP) PO SCH (09:14)
[2017-06-10] MEDS: ISOSORBIDE MONONITRATE 30 MG TAB.SR.24H (FP) PO SCH (09:14)
[2017-06-10] MEDS: COLLAGENASE CLOSTRIDIUM HIST. 30 GRAMS TUBE TP SCH (09:15)
[2017-06-10] MEDS ORDERED: PREGABALIN 25 MG CAPSULE PO SCH (10:00)
[2017-06-10 10:41] LABS: PLATELET ESTIMATE ADEQUATE (NORMAL)
[2017-06-10] MEDS ORDERED: INSULIN (NOVOLOG) ASPART 100 UNITS/ML 10ML VIAL ONE (11:50)
[2017-06-10 12:05] VITALS: BP 140/70; PULSE 65; TEMP 98
--- NOTE | 2017-06-10 12:09 | PN ---
Progress Note, Physician History of Present Illness: stable no issues - Current Medication List Current Medications: Active Medications Acetaminophen (Tylenol -) 650 mg PO Q4H PRN PRN Reason: FEVER OR PAIN Last Admin: 06/10/17 11:43 Dose: 650 mg Aspirin (Ecotrin -) 81 mg PO DAILY [facility] Last Admin: 06/10/17 09:14 Dose: 81 mg Atorvastatin Calcium (Lipitor -) 80 mg PO HS [facility] Last Admin: 06/09/17 22:22 Dose: 80 mg Clopidogrel Bisulfate (Plavix -) 75 mg PO DAILY [facility] Last Admin: 06/10/17 09:14 Dose: 75 mg Collagenase (Santyl -) 1 applic TP DAILY [facility] Last Admin: 06/10/17 09:15 Dose: 1 applic Docusate Sodium (Colace -) 100 mg PO BID [facility] Last Admin: 06/10/17 09:13 Dose: 100 mg Enoxaparin Sodium (Lovenox -) 40 mg SQ DAILY [facility] Last Admin: 06/10/17 09:14 Dose: 40 mg Hydralazine HCl (Apresoline -) 10 mg PO TID [facility] Last Admin: 06/10/17 06:15 Dose: 10 mg Insulin Aspart (Novolog Vial Sliding Scale -) 1 vial SQ ACHS [facility] PRN Reason: Protocol Last Admin: 06/10/17 11:39 Dose: 2 unit Insulin Detemir (Levemir Vial) 50 units SQ BIDI [facility] Last Admin: 06/10/17 06:16 Dose: Not Given Isosorbide Mononitrate (Imdur -) 30 mg PO DAILY [facility] Last Admin: 06/10/17 09:14 Dose: 30 mg Magnesium Oxide (Mag-Ox -) 400 mg PO BID [facility] Last Admin: 06/10/17 09:14 Dose: 400 mg Metoprolol Succinate (Toprol Xl -) 50 mg PO BID [facility] Last Admin: 06/10/17 09:14 Dose: 50 mg Morphine Sulfate (Ms Contin -) 90 mg PO TID [facility] Last Admin: 06/10/17 06:15 Dose: 90 mg Oxycodone HCl (Roxicodone -) 10 mg PO Q4H PRN PRN Reason: PAIN Last Admin: 06/10/17 11:40 Dose: 10 mg Pantoprazole Sodium (Protonix -) 40 mg PO DAILY [facility] Last Admin: 06/10/17 09:14 Dose: 40 mg Polyethylene Glycol (Miralax (For Daily Use) -) 17 gm PO BID PRN PRN Reason: CONSTIPATION Pregabalin (Lyrica -) 50 mg PO DAILY [facility] Last Admin: 06/10/17 09:13 Dose: 50 mg Temazepam (Restoril -) 30 mg PO HS [facility] Last Admin: 06/09/17 22:21 Dose: 30 mg Zolpidem Tartrate (Ambien -) 10 mg PO HS PRN PRN Reason: sleep Last Admin: 06/09/17 22:22 Dose: 10 mg - Objective Vital Signs: Vital Signs Temperature 98 F 06/10/17 10:00 Pulse Rate 65 06/10/17 10:00 Respiratory Rate 20 06/10/17 10:00 Blood Pressure 140/70 06/10/17 10:00 O2 Sat by Pulse Oximetry (%) 97 06/10/17 09:00 Constitutional: Yes: No Distress, Calm Cardiovascular: Yes: S1, S2 Respiratory: Yes: Regular, CTA Bilaterally Gastrointestinal: Yes: Normal Bowel Sounds, Soft Musculoskeletal: Yes: WNL Extremities: Yes: WNL Wound/Incision: Yes: Clean/Dry, Dressing Dry and Intact Neurological: Yes: Alert, Oriented Psychiatric: Yes: Alert, Oriented Labs: CBC, BMP 06/10/17 05:35 06/10/17 05:35 INR, PTT INR 1.11 (0.82-1.09) 06/04/17 19:00 Assessment/Plan Problem List - Problems (1) Congestive heart failure (CHF) Code(s): I50.9 - HEART FAILURE, UNSPECIFIED Qualifiers: Congestive heart failure type: systolic Congestive heart failure chronicity: chronic Qualified Code(s): I50.22 - Chronic systolic ( congestive) heart failure (2) Fever Code(s): R50.9 - FEVER, UNSPECIFIED (3) Renal failure (ARF), acute on chronic Code(s): N17.9 - ACUTE KIDNEY FAILURE, UNSPECIFIED N18.9 - CHRONIC KIDNEY DISEASE, UNSPECIFIED (4) Acute respiratory failure Code(s): J96.00 - ACUTE RESPIRATORY FAILURE, UNSP W HYPOXIA OR HYPERCAPNIA (5) CAD (coronary artery disease) Code(s): I25.10 - ATHSCL HEART DISEASE OF [place] CORONARY ARTERY W/O ANG PCTRS Qualifiers: (6) COPD (chronic obstructive pulmonary disease) Code(s): J44.9 - CHRONIC OBSTRUCTIVE PULMONARY DISEASE, UNSPECIFIED (7) Diabetes mellitus Code(s): E11.9 - TYPE 2 DIABETES MELLITUS WITHOUT COMPLICATIONS Qualifiers: Diabetes mellitus type: type 2 Diabetes mellitus complication status: with circulatory complication Diabetes mellitus complication detail: with peripheral angiopathy with gangrene Diabetes mellitus shelter insulin use : with shelter use Qualified Code(s): E11.52 - Type 2 diabetes mellitus with diabetic peripheral angiopathy with gangrene; 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
--- NOTE | 2017-06-10 12:27 | PN ---
Progress Note (short form) - Note Progress Note: Patient seen and examined. Notes/consults reviewed. Discussed in detail with the patient regarding the need for rehab prior to planned CABG procedure. Patient agrees for rehab now. Denies chest pain, shortness of breath, palpitation or dizziness. Febrile. Progress Note, Physician Chief Complaint: Mr Scott is without complaint. Denies cp, sob, n/v. - Current Medication List Current Medications: Active Medications Acetaminophen (Tylenol -) 650 mg PO Q4H PRN PRN Reason: FEVER OR PAIN Last Admin: 06/09/17 02:09 Dose: 650 mg Aspirin (Ecotrin -) 81 mg PO DAILY [facility] Last Admin: 06/09/17 09:06 Dose: 81 mg Atorvastatin Calcium (Lipitor -) 80 mg PO HS [facility] Last Admin: 06/08/17 22:10 Dose: 80 mg Azithromycin (Zithromax -) 500 mg PO DAILY [facility] Last Admin: 06/09/17 09:06 Dose: 500 mg Clopidogrel Bisulfate (Plavix -) 75 mg PO DAILY [facility] Last Admin: 06/09/17 09:06 Dose: 75 mg Collagenase (Santyl -) 1 applic TP DAILY [facility] Last Admin: 06/09/17 09:07 Dose: 1 applic Docusate Sodium (Colace -) 100 mg PO BID [facility] Last Admin: 06/09/17 09:09 Dose: 100 mg Enoxaparin Sodium (Lovenox -) 40 mg SQ DAILY [facility] Last Admin: 06/09/17 09:06 Dose: 40 mg Hydralazine HCl (Apresoline -) 10 mg PO TID [facility] Last Admin: 06/09/17 06:21 Dose: 10 mg Insulin Aspart (Novolog Vial Sliding Scale -) 1 vial SQ ACHS [facility] PRN Reason: Protocol Last Admin: 06/09/17 11:27 Dose: Not Given Insulin Detemir (Levemir Vial) 50 units SQ BIDI [facility] Last Admin: 06/09/17 06:22 Dose: Not Given Isosorbide Mononitrate (Imdur -) 30 mg PO DAILY [facility] Last Admin: 06/09/17 09:05 Dose: 30 mg Magnesium Oxide (Mag-Ox -) 400 mg PO BID [facility] Last Admin: 06/09/17 09:06 Dose: 400 mg Metoprolol Succinate (Toprol Xl -) 50 mg PO BID [facility] Last Admin: 06/09/17 09:06 Dose: 50 mg Morphine Sulfate (Ms Contin -) 90 mg PO TID [facility] Last Admin: 06/09/17 06:21 Dose: 90 mg Oxycodone HCl (Roxicodone -) 10 mg PO Q6H PRN PRN Reason: PAIN Last Admin: 06/09/17 02:10 Dose: 10 mg Pantoprazole Sodium (Protonix -) 40 mg PO DAILY [facility] Last Admin: 06/09/17 09:05 Dose: 40 mg Polyethylene Glycol (Miralax (For Daily Use) -) 17 gm PO BID PRN PRN Reason: CONSTIPATION Pregabalin (Lyrica -) 50 mg PO BID [facility] Last Admin: 06/09/17 09:06 Dose: 50 mg Temazepam (Restoril -) 30 mg PO HS [facility] Last Admin: 06/08/17 22:11 Dose: 30 mg Zolpidem Tartrate (Ambien -) 10 mg PO HS PRN PRN Reason: sleep Last Admin: 06/08/17 22:40 Dose: 10 mg - Objective Vital Signs: Vital Signs Period Temp Pulse Resp BP Sys/Chandra Pulse Ox Last 24 Hr 98 F-98.6 F 58-67 18-20 122-144/57-70 95-97 Constitutional: Yes: Well Nourished, No Distress, Calm Cardiovascular: Yes: Regular Rate and Rhythm. No: Gallop, Murmur, Rub Respiratory: Yes: Regular, CTA Bilaterally. No: Rales, Rhonchi, Wheezes Gastrointestinal: Yes: Normal Bowel Sounds, Soft. No: Distention, Tenderness Extremities: Yes: WNL Edema: No Labs: CBC, BMP 06/10/17 05:35 06/10/17 05:35 Problem List - Problems (1) Congestive heart failure (CHF) Code(s): I50.9 - HEART FAILURE, UNSPECIFIED Qualifiers: Congestive heart failure type: systolic Congestive heart failure chronicity: chronic Qualified Code(s): I50.22 - Chronic systolic ( congestive) heart failure (2) Fever Code(s): R50.9 - FEVER, UNSPECIFIED (3) Renal failure (ARF), acute on chronic Code(s): N17.9 - ACUTE KIDNEY FAILURE, UNSPECIFIED N18.9 - CHRONIC KIDNEY DISEASE, UNSPECIFIED (4) Acute respiratory failure Code(s): J96.00 - ACUTE RESPIRATORY FAILURE, UNSP W HYPOXIA OR HYPERCAPNIA (5) CAD (coronary artery disease) Code(s): I25.10 - ATHSCL HEART DISEASE OF [place] CORONARY ARTERY W/O ANG PCTRS Qualifiers: (6) COPD (chronic obstructive pulmonary disease) Code(s): J44.9 - CHRONIC OBSTRUCTIVE PULMONARY DISEASE, UNSPECIFIED (7) Diabetes mellitus Code(s): E11.9 - TYPE 2 DIABETES MELLITUS WITHOUT COMPLICATIONS Qualifiers: Diabetes mellitus type: type 2 Diabetes mellitus complication status: with circulatory complication Diabetes mellitus complication detail: with peripheral angiopathy with gangrene Diabetes mellitus terminal computer operator insulin use : with senior living use Qualified Code(s): E11.52 - Type 2 diabetes mellitus with diabetic peripheral angiopathy with gangrene; Z79.4 - terminologist ( current) use of insulin (8) Hyperlipidemia Code(s): E78.5 - HYPERLIPIDEMIA, UNSPECIFIED (9) Hypertension Code(s): I10 - ESSENTIAL (PRIMARY) HYPERTENSION Assessment/Plan (1) Congestive heart failure (CHF) Assessment/Plan: -well diuresed -cardiology following -holding diuretics. - To resume once creatinine stable. Code(s): I50.9 - HEART FAILURE, UNSPECIFIED Qualifiers: Congestive heart failure type: systolic Congestive heart failure chronicity: chronic Qualified Code(s): I50.22 - Chronic systolic ( congestive) heart failure (2) Fever Assessment/Plan: -fever has not recurred -blood culture negative, no need for further antibiotics Code(s): R50.9 - FEVER, UNSPECIFIED (3) Renal failure (ARF), acute on chronic Assessment/Plan: -holding lasix Code(s): N17.9 - ACUTE KIDNEY FAILURE, UNSPECIFIED N18.9 - CHRONIC KIDNEY DISEASE, UNSPECIFIED (4) Acute respiratory failure Assessment/Plan: -resolved Code(s): J96.00 - ACUTE RESPIRATORY FAILURE, UNSP W HYPOXIA OR HYPERCAPNIA (5) CAD (coronary artery disease) Assessment/Plan: -3v CABG recommended -patient initially refused, now agreeable -cardiology following and medically managing -stable for transfer to rehab and for CABG when stable. Code(s): I25.10 - ATHSCL HEART DISEASE OF [place] CORONARY ARTERY W/O ANG PCTRS Qualifiers: (6) COPD (chronic obstructive pulmonary disease) Assessment/Plan: -continue home regimen Code(s): J44.9 - CHRONIC OBSTRUCTIVE PULMONARY DISEASE, UNSPECIFIED (7) Diabetes mellitus Assessment/Plan: -continue levemir and SSI -diabetic diet Code(s): E11.9 - TYPE 2 DIABETES MELLITUS WITHOUT COMPLICATIONS Qualifiers: Diabetes mellitus type: type 2 Diabetes mellitus complication status: with circulatory complication Diabetes mellitus complication detail: with peripheral angiopathy with gangrene Diabetes mellitus terminal computer operator insulin use : with terminal computer operator use Qualified Code(s): E11.52 - Type 2 diabetes mellitus with diabetic peripheral angiopathy with gangrene; Z79.4 - assisted ( current) use of insulin (8) Hyperlipidemia Assessment/Plan: -continue statin Code(s): E78.5 - HYPERLIPIDEMIA, UNSPECIFIED (9) Hypertension Assessment/Plan: -continue hydralazine, toprol xl, and imdur -monitor Code(s): I10 - ESSENTIAL (PRIMARY) HYPERTENSION Patient is stable for discharge.
--- NOTE | 2017-06-10 12:28 | DS ---
Physical Examination Vital Signs: Vital Signs Temperature 98 F 06/10/17 10:00 Pulse Rate 65 06/10/17 10:00 Respiratory Rate 20 06/10/17 10:00 Blood Pressure 140/70 06/10/17 10:00 O2 Sat by Pulse Oximetry (%) 97 06/10/17 09:00 Labs: CBC, BMP 06/10/17 05:35 06/10/17 05:35 Discharge Summary Reason For Visit: SOB Current Active Problems Chest pain (Acute) Fever (Acute) Hospital Course: (1) Congestive heart failure (CHF) Assessment/Plan: -well diuresed -cardiology following -holding diuretics. - To resume once creatinine stable. Code(s): I50.9 - HEART FAILURE, UNSPECIFIED Qualifiers: Congestive heart failure type: systolic Congestive heart failure chronicity: chronic Qualified Code(s): I50.22 - Chronic systolic ( congestive) heart failure (2) Fever Assessment/Plan: -fever has not recurred -blood culture negative, no need for further antibiotics Code(s): R50.9 - FEVER, UNSPECIFIED (3) Renal failure (ARF), acute on chronic Assessment/Plan: -holding lasix Code(s): N17.9 - ACUTE KIDNEY FAILURE, UNSPECIFIED N18.9 - CHRONIC KIDNEY DISEASE, UNSPECIFIED (4) Acute respiratory failure Assessment/Plan: -resolved Code(s): J96.00 - ACUTE RESPIRATORY FAILURE, UNSP W HYPOXIA OR HYPERCAPNIA (5) CAD (coronary artery disease) Assessment/Plan: -3v CABG recommended -patient initially refused, now agreeable -cardiology following and medically managing -stable for transfer to rehab and for CABG when stable. Code(s): I25.10 - ATHSCL HEART DISEASE OF [place] CORONARY ARTERY W/O ANG PCTRS Qualifiers: (6) COPD (chronic obstructive pulmonary disease) Assessment/Plan: -continue home regimen Code(s): J44.9 - CHRONIC OBSTRUCTIVE PULMONARY DISEASE, UNSPECIFIED (7) Diabetes mellitus Assessment/Plan: -continue levemir and SSI -diabetic diet Code(s): E11.9 - TYPE 2 DIABETES MELLITUS WITHOUT COMPLICATIONS Qualifiers: Diabetes mellitus type: type 2 Diabetes mellitus complication status: with circulatory complication Diabetes mellitus complication detail: with peripheral angiopathy with gangrene Diabetes mellitus intermediate accountant insulin use : with nursing home use Qualified Code(s): E11.52 - Type 2 diabetes mellitus with diabetic peripheral angiopathy with gangrene; Z79.4 - rn long term care ( current) use of insulin (8) Hyperlipidemia Assessment/Plan: -continue statin Code(s): E78.5 - HYPERLIPIDEMIA, UNSPECIFIED (9) Hypertension Assessment/Plan: -continue hydralazine, toprol xl, and imdur -monitor Code(s): I10 - ESSENTIAL (PRIMARY) HYPERTENSION Patient is stable for discharge. Condition: Stable - Instructions Referrals: Vin Isbell MD [Primary Care Provider] - Disposition: [facility] - Home Medications Comprehensive Discharge Medication List: Ambulatory Orders Aspirin [Ecotrin] 81 mg PO DAILY 04/29/15 Docusate Sodium [Colace -] 100 mg PO BID capsule 08/26/15 Hydralazine HCl [Apresoline -] 10 mg PO BID #180 tablet 08/14/16 Polyethylene Glycol 3350 [Miralax 119 gm Btl -] 17 gm PO BID PRN #0 bottle 08/14 Magnesium Oxide [Mag-Ox -] 400 mg PO BID #60 tablet 01/27/17 Pregabalin [Lyrica] 50 mg PO BID 03/13/17 Collagenase Clostridium Hist. [Santyl] 1 applic TP DAILY #90 oint...g. 04/04/17 Clopidogrel Bisulfate [Plavix -] 75 mg PO DAILY 06/04/17 Insulin (Levemir) [Levemir Flexpen -] 50 units SQ BID 06/04/17 Isosorbide Mononitrate [Isosorbide Mononitrate ER] 30 mg PO DAILY 06/04/17 Acetaminophen [Tylenol .Regular Strength -] 650 mg PO Q4H PRN #90 tablet Atorvastatin Ca [Lipitor] 80 mg PO HS #30 tablet 06/10/17 Enoxaparin [Lovenox -] 40 mg SQ DAILY #30 syringe 06/10/17 Insulin Sliding Scale [Novolog Vial Sliding Scale -] 1 vial SQ ACHS #7 units 10/15 Metoprolol Succinate [Toprol XL -] 50 mg PO BID #30 tab 06/10/17 Morphine *Sr* [MS Contin -] 90 mg PO TID #90 tab MDD 3 06/10/17 Oxycodone HCl [Roxicodone -] 10 mg PO Q4H PRN #30 tablet MDD 6 06/10/17 Pantoprazole Sodium [Protonix -] 40 mg PO DAILY #30 tab 06/10/17 Temazepam [Restoril -] 30 mg PO HS #30 cap MDD 1 06/10/17
== END 2017-06-10 14:36 | DRG 280 ==
LOC: JER 18:23 → JERBED 21:57 → J4W 06-05 20:12
PROVIDERS: ADMIT Specialist; ATTEND Specialist
DX: I13.0 Hypertensive heart and chronic kidney disease with heart failure and stage 1 through stage 4 chronic kidney disease, or unspecified chronic kidney disease (principal); I50.21 Acute systolic (congestive) heart failure; I21.4 Non-ST elevation (NSTEMI) myocardial infarction; J96.01 Acute respiratory failure with hypoxia; J18.9 Pneumonia, unspecified organism; N17.9 Acute kidney failure, unspecified; N18.9 Chronic kidney disease, unspecified; E11.22 Type 2 diabetes mellitus with diabetic chronic kidney disease; R07.9 Chest pain, unspecified; J44.9 Chronic obstructive pulmonary disease, unspecified; E78.5 Hyperlipidemia, unspecified; R50.9 Fever, unspecified; I25.10 Atherosclerotic heart disease of native coronary artery without angina pectoris; Z98.61 Coronary angioplasty status; I25.5 Ischemic cardiomyopathy; D64.9 Anemia, unspecified; Z86.73 Personal history of transient ischemic attack (TIA), and cerebral infarction without residual deficits; Z87.891 Personal history of nicotine dependence
CPT/HCPCS: 36415; 36600; 71010-TC; 80048; 80053; 81003; 82728; 82803; 83540; 83550; 83605; 83735; 83880; 84100; 84484; 85025; 85610; 87040; 87086; 87186; 93005; 93010; 97116-GP; 97162-GP; 99285-25

== ENCOUNTER 2017-10-04 11:06 | Inpatient (IN) | payer OTHER ==
[2017-10-04 11:38] VITALS: BMI 29.0
--- NOTE | 2017-10-04 12:07 | PDOC ---
History of Present Illness - General History Source: Patient Exam Limitations: No Limitations - History of Present Illness Initial Comments: 10/04/17 12:54 The patient is a 67 year old female with a significant PMH of diabetes, COPD ( on 2L home O2), neuropathy, CKD, CVA (2015 w/o residual deficits), CAD (s/p x9 stents), TN, and ischemic cardiomyopathy with systolic CHF who presents to the emergency department with worsening cough beginning approximately 3 weeks ago. The patient notes that his cough feels very phlegmy. He reports that this episode of cough is similar to when he had pneumonia last year. He also notes intermittent vomiting within the past 3 weeks. The patient denies chest pain, shortness of breath, headache and dizziness. Denies fever, chills, nausea, vomit, diarrhea and constipation. Denies dysuria, frequency, urgency and hematuria. Allergies: NKA Past surgical history: Cardiac stent placement (x9). Social history: Former smoker. No reported alcohol or drug use. PCP: Dr. Isbell <Alek Vilchis - Last Filed: 10/04/17 14:59> <Akilah Murrell - Last Filed: 10/04/17 15:05> - General Chief Complaint: Weakness Stated Complaint: Weakness Time Seen by Provider: 10/04/17 11:45 Past History <Alek Vilchis - Last Filed: 10/04/17 14:59> - Past Medical History Anemia: No Asthma: No Cancer: No Cardiac Disorders: Yes (9 stents, TN, CAD) CVA: Yes (CVA IN 2015 W/O DEFICIT) COPD: Yes (@l O2 via NC at home) CHF: No Dementia: No Diabetes: Yes GI Disorders: Yes (colitis NOW CONSTIPATION) Disorders: Yes (ON FLOMAX; EDEMA) HTN: Yes Hypercholesterolemia: Yes Kidney Stones: Yes Liver Disease: No Seizures: No Thyroid Disease: No - Surgical History Abdominal Surgery: No Appendectomy: No Cardiac Surgery: Yes (stents x 9) Cholecystectomy: No Lung Surgery: No Neurologic Surgery: No Orthopedic Surgery: No - Immunization History Immunization Up to Date: No - Suicide/Smoking/Psychosocial Hx Smoking Status: No Smoking History: Former smoker Have you smoked in the past 12 months: No Number of Cigarettes Smoked Daily: 30 If you are a former smoker, when did you quit?: 2017 Cigars Per Day: 0 Information on smoking cessation initiated: No 'Breaking Loose' booklet given: 01/12/17 Hx Alcohol Use: No Drug/Substance Use Hx: No Substance Use Type: None Hx Substance Use Treatment: No <Akilah Murrell - Last Filed: 10/04/17 15:05> - Past Medical History Allergies/Adverse Reactions: Allergies Allergy/AdvReac Type Severity Reaction Status Date / Time pantoprazole sodium Allergy Verified 10/04/17 11:37 [From Protonix] Home Medications: Ambulatory Orders Aspirin [Ecotrin] 81 mg PO DAILY 04/29/15 Docusate Sodium [Colace -] 100 mg PO BID capsule 08/26/15 Hydralazine HCl [Apresoline -] 10 mg PO BID #180 tablet 08/14/16 Polyethylene Glycol 3350 [Miralax 119 gm Btl -] 17 gm PO BID PRN #0 bottle 08/14 Magnesium Oxide [Mag-Ox -] 400 mg PO BID #60 tablet 01/27/17 Pregabalin [Lyrica] 50 mg PO BID 03/13/17 Collagenase Clostridium Hist. [Santyl] 1 applic TP DAILY #90 oint...g. 04/04/17 Clopidogrel Bisulfate [Plavix -] 75 mg PO DAILY 06/04/17 Insulin (Levemir) [Levemir Flexpen -] 50 units SQ BID 06/04/17 Isosorbide Mononitrate [Isosorbide Mononitrate ER] 30 mg PO DAILY 06/04/17 Acetaminophen [Tylenol .Regular Strength -] 650 mg PO Q4H PRN #90 tablet Atorvastatin Ca [Lipitor] 80 mg PO HS #30 tablet 06/10/17 Enoxaparin [Lovenox -] 40 mg SQ DAILY #30 syringe 06/10/17 Insulin Sliding Scale [Novolog Vial Sliding Scale -] 1 vial SQ ACHS #7 units 10/15 Metoprolol Succinate [Toprol XL -] 50 mg PO BID #30 tab 06/10/17 Morphine *Sr* [MS Contin -] 90 mg PO TID #90 tab MDD 3 06/10/17 Oxycodone HCl [Roxicodone -] 10 mg PO Q4H PRN #30 tablet MDD 6 06/10/17 Pantoprazole Sodium [Protonix -] 40 mg PO DAILY #30 tab 06/10/17 Temazepam [Restoril -] 30 mg PO HS #30 cap MDD 1 06/10/17 Mupirocin Ointment [Bactroban] 1 applic TP BID #1 tube 09/26/17 Review of Systems - Review of Systems Able to Perform ROS?: Yes Comments:: 10/04/17 12:54 GENERAL/CONSTITUTIONAL: No fever or chills. No weakness. HEAD, EYES, EARS, NOSE AND THROAT: No change in vision. No ear pain or discharge. No sore throat. CARDIOVASCULAR: No chest pain or shortness of breath. RESPIRATORY: (+) Productive cough (phlegm). No wheezing, or hemoptysis. GASTROINTESTINAL: No nausea, vomiting, diarrhea or constipation. GENITOURINARY: No dysuria, frequency, or change in urination. MUSCULOSKELETAL: No joint or muscle swelling or pain. No neck or back pain. SKIN: No rash NEUROLOGIC: No headache, vertigo, loss of consciousness, or change in strength/ sensation. ENDOCRINE: No increased thirst. No abnormal weight change. HEMATOLOGIC/LYMPHATIC: No anemia, easy bleeding, or history of blood clots. ALLERGIC/IMMUNOLOGIC: No hives or skin allergy. <Alek Vilchis - Last Filed: 10/04/17 14:59> *Physical Exam - Vital Signs Last Vital Signs Temp Pulse Resp BP Pulse Ox 99.2 F 77 25 H 102/69 91 L 10/04/17 11:32 10/04/17 11:32 10/04/17 11:32 10/04/17 11:32 10/04/17 11:32 - Physical Exam Comments: 10/04/17 12:54 GENERAL: Awake, alert, and fully oriented, in no acute distress HEAD: No signs of trauma EYES: PERRLA, EOMI, sclera anicteric, conjunctiva clear ENT: (+) Dry mucosa. Auricles normal inspection, hearing grossly normal, nares patent, oropharynx clear without exudates. NECK: Normal ROM, supple, no lymphadenopathy, JVD, or masses LUNGS: (+) Rhonchi diffusely. (+) Wheezing at lung bases. No crackles. HEART: Regular rate and rhythm, normal S1 and S2, no murmurs, rubs or gallops ABDOMEN: Soft, nontender, normoactive bowel sounds. No guarding, no rebound. No masses EXTREMITIES: Normal range of motion, no edema. No clubbing or cyanosis. No cords, erythema, or tenderness NEUROLOGICAL: Cranial nerves II through XII grossly intact. Normal speech. SKIN: Warm, Dry, normal turgor, no rashes or lesions noted. <Alek Vilchis - Last Filed: 10/04/17 14:59> - Vital Signs Last Vital Signs Temp Pulse Resp BP Pulse Ox 99.2 F 77 25 H 102/69 90 L 10/04/17 11:32 10/04/17 11:32 10/04/17 11:32 10/04/17 11:32 10/04/17 11:32 <Akilah Murrell - Last Filed: 10/04/17 15:05> Heart Score/ECG Review - ECG Intrepretation Comment:: 10/04/17 15:04 sinus at 77 w first degree av block L axis, q waves inferior that are age indeterminate, t wave inversions lateral, abnl ekg <Akilah Murrell - Last Filed: 10/04/17 15:05> ED Treatment Course - LABORATORY CBC & Chemistry Diagram: 10/04/17 12:31 10/04/17 12:31 - Consult/PCP Time Called: 15:00 Case discussed with personal care physician: Marquez Huang <Alek Vilchis - Last Filed: 10/04/17 14:59> - LABORATORY CBC & Chemistry Diagram: 10/04/17 12:31 10/04/17 12:31 <Akilah Murrell - Last Filed: 10/04/17 15:05> Medical Decision Making - Medical Decision Making 10/04/17 15:03 a/p: 67yo male with cough and generalized weakness -suspect pna -recent copd exacerbation -wheezing and rhonchi on exam nebs steroids cultures lactate 10/04/17 15:03 on labs, pt with elevated WBC to 25. cxr without acute findings will start broad spectrum abx elevated cr on labs, ada on ckd case discussed with Dr. Huang who accepts pt to service ivf hydration started <Akilah Murrell - Last Filed: 10/04/17 15:05> *DC/Admit/Observation/Transfer - Attestations Scribe Attestion: 10/04/17 12:55 Documentation prepared by Alek Vilchis, acting as medical data entry clerk for Akilah Murrell DO. <Alek Vilchis - Last Filed: 10/04/17 14:59> - Discharge Dispostion Admit: Yes - Attestations Physician Attestion: 10/04/17 15:02 I, Dr. Akilah Murrell DO, attest that this document has been prepared under my direction and personally reviewed by me in its entirety. I further attest, that it accurately reflects all work, treatment, procedures and medical decision -making performed by me. <Akilah Murrell - Last Filed: 10/04/17 15:05> Diagnosis at time of Disposition: Weakness, Orthopnea, Renal failure (ARF), acute on chronic, COPD (chronic obstructive pulmonary disease), Dyspnea - Discharge Dispostion Condition at time of disposition: Guarded - Referrals Referrals: Vin Isbell MD [Primary Care Provider] - - Patient Instructions - Post Discharge Activity
[2017-10-04] MEDS ORDERED: methylPREDNISolone NA SUCC 125 MG/2 ML VIAL IVPB ONE (12:16)
[2017-10-04] MEDS ORDERED: ALBUTEROL SO4 2.5/IPRATROPIUM 0.5 INH SOL 3 ML VIAL.NEB. NEB ONE (12:16)
[2017-10-04] MEDS ORDERED: guaiFENesin 600 MG TABLET.ER (FP) PO ONE (12:34)
[2017-10-04 12:56] LABS: MCH 27.2 pg (25.7-33.7); MCHC 30.9 g/dl (32.0-35.9); MEAN PLT VOLUME 8.7 fl (7.5-11.1); PLATELET COUNT 261 K/MM3 (134-434); RDW 21.9 % (11.9-15.9); WHITE BLOOD COUNT 25.8 K/mm3 (4.0-10.0)
[2017-10-04 13:17] LABS: ALBUMIN 3.2 g/dl (3.4-5.0); ANION GAP 10 (8-16); BILIRUBIN,TOTAL 0.3 mg/dL (0.2-1.0); CALCIUM 8.2 mg/dL (8.5-10.1); CO2 19 mmol/L (21-32); GLUCOSE,RANDOM 131 mg/dL (74-106); SGPT/ALT 12 U/L (12-78); TOT PROT 6.3 g/dl (6.4-8.2)
[2017-10-04 13:20] LABS: ALK PHOS 67 U/L (45-117); CPK 21 IU/L (39-308); TROPONIN I 0.02 ng/ml (0.00-0.05)
[2017-10-04 13:43] LABS: SGOT/AST < 3 U/L (15-37)
[2017-10-04 14:01] LABS: INR 1.04 (0.82-1.09); PROTHROMBIN TIME (PATIENT) 11.8 SEC (9.98-11.88)
[2017-10-04 14:04] LABS: ACTIVATED PTT 34.5 SECONDS (26.9-34.4)
[2017-10-04 14:10] LABS: ARTERIAL BLD GAS O2 SATURATION 90.4 % (90-98.9); ARTERIAL BLOOD GAS BASE EXCESS -8.3 meq/l (-2-2); ARTERIAL BLOOD GAS HCO3 17.5 meq/L (22-26); ARTERIAL BLOOD GAS PO2 62.4 mmHg (80-100); ARTERIAL BLOOD GAS pH 7.27 (7.35-7.45)
[2017-10-04 14:12] LABS: ALLENS TEST POSITIVE; METHEMOGLOBIN 0.8 % (0.4-1.5)
[2017-10-04 14:13] LABS: ART PUNCT SITE LEFT RADIAL; LPM/O2% 2L; PT. ON O2? YES; TYPE OF O2 N/C
[2017-10-04 14:27] LABS: TOTAL CELLS COUNTED 100
[2017-10-04 14:28] LABS: ANISOCYTOSIS 1+; PLATELET ESTIMATE ADEQUATE
[2017-10-04] MEDS ORDERED: PIPERACILLIN/TAZOB 2.25 GM/50 ML PREMIX BAG IVPB ONE ×2 (14:59→23:00)
[2017-10-04] MEDS ORDERED: VANCOMYCIN 1 GRAM (PRE-DOCKED) 1,000 MG/250 ML BAG IVPB ONE (14:59)
[2017-10-04] MEDS ORDERED: SODIUM CHLORIDE 0.9% 1000 ML INFUS.BAG IV ONE (14:59)
[2017-10-04] MEDS ORDERED: morphine CARPU-JECT 4 MG/1 ML DISP.SYRIN IVPUSH ONE (15:11)
[2017-10-04] MEDS ORDERED: PIPERACILLIN/TAZOBACTAM 2.25 GM VIAL IVPB ONE (15:27)
[2017-10-04] MEDS ORDERED: morphine SULFATE 4 MG/ML VIAL ONE (15:27)
[2017-10-04] MEDS ORDERED: POLYETHYLENE GLYCOL 3350 119 GM BTL PO PRN (16:21)
[2017-10-04] MEDS ORDERED: ONDANSETRON 4 MG/2 ML VIAL IVPUSH PRN (16:26)
[2017-10-04] MEDS ORDERED: ALBUTEROL SO4 2.5/IPRATROPIUM 0.5 INH SOL 3 ML VIAL.NEB. NEB PRN (16:32)
--- NOTE | 2017-10-04 16:38 | HP ---
Admitting History and Physical - Primary Care Physician PCP: Vin Isbell - Admission Chief Complaint: I'm congested History of Present Illness: Mr Scott is a 67 year old male who comes in complaining of congestion. Mr Scott is a bit vague historian so parts of the history also come from his at the bedside. He began to feel poorly before Thanksgiving, saying he was beginning to have a productive cough. The cough was producing green sputum and was becoming more severe. He was having shortness of breath with this as well, which was worse at night when he was lying down. He also has nausea with vomiting and often throws up after he eats, however per his this is a chronic problem and thought to be secondary to diabetic gastroparesis. Over the past few weeks he has been getting progressively worse. He started to become progressively weaker with this. His noticed that he started to shake and with this was able to convince him to come to the hospital. He denies fevers, lightheadedness, dizziness, chest pain, diarrhea, constipation, difficulty or pain on urination, or swelling. He currently says he mainly feels weak and congested. 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 No: AFIB Pulmonary: Yes: COPD Gastrointestinal: Yes: Other (Colitis) Renal/: Yes: Renal Inusuff, Other (hyperkalemia) Psych: Yes: Addictions Musculoskeletal: Yes: Other (Lumbar radiculopathy) Endocrine: Yes: Diabetes Mellitus - Past Surgical History Past Surgical History: Yes: Stent - Smoking History Smoking history: Former smoker Have you smoked in the past 12 months: No Aproximately how many cigarettes per day: 30 If you are a former smoker, when did you quit?: 2017 - Alcohol/Substance Use Hx Alcohol Use: No History of Substance Use: reports: None - Social History Usual Living Arrangement: Yes: With Spouse ADL: Independent History of Recent Travel: No Home Medications - Allergies Allergies/Adverse Reactions: Allergies Allergy/AdvReac Type Severity Reaction Status Date / Time pantoprazole sodium Allergy Verified 10/04/17 11:37 [From Protonix] - Home Medications Home Medications: Ambulatory Orders Aspirin [Ecotrin] 81 mg PO DAILY 04/29/15 Docusate Sodium [Colace -] 100 mg PO BID capsule 08/26/15 Hydralazine HCl [Apresoline -] 10 mg PO BID #180 tablet 08/14/16 Polyethylene Glycol 3350 [Miralax 119 gm Btl -] 17 gm PO BID PRN #0 bottle 08/14 Magnesium Oxide [Mag-Ox -] 400 mg PO BID #60 tablet 01/27/17 Pregabalin [Lyrica] 50 mg PO BID 03/13/17 Collagenase Clostridium Hist. [Santyl] 1 applic TP DAILY #90 oint...g. 04/04/17 Clopidogrel Bisulfate [Plavix -] 75 mg PO DAILY 06/04/17 Insulin (Levemir) [Levemir Flexpen -] 50 units SQ BID 06/04/17 Isosorbide Mononitrate [Isosorbide Mononitrate ER] 30 mg PO DAILY 06/04/17 Acetaminophen [Tylenol .Regular Strength -] 650 mg PO Q4H PRN #90 tablet Atorvastatin Ca [Lipitor] 80 mg PO HS #30 tablet 06/10/17 Enoxaparin [Lovenox -] 40 mg SQ DAILY #30 syringe 06/10/17 Insulin Sliding Scale [Novolog Vial Sliding Scale -] 1 vial SQ ACHS #7 units 10/15 Metoprolol Succinate [Toprol XL -] 50 mg PO BID #30 tab 06/10/17 Morphine *Sr* [MS Contin -] 90 mg PO TID #90 tab MDD 3 06/10/17 Oxycodone HCl [Roxicodone -] 10 mg PO Q4H PRN #30 tablet MDD 6 06/10/17 Pantoprazole Sodium [Protonix -] 40 mg PO DAILY #30 tab 06/10/17 Temazepam [Restoril -] 30 mg PO HS #30 cap MDD 1 06/10/17 Mupirocin Ointment [Bactroban] 1 applic TP BID #1 tube 09/26/17 Family Disease History - Family Disease History Family Disease History: Diabetes: Grandparent, Sister (COPD), CA: Father, Respiratory: Sister, Other: Mother (CVA) Review of Systems Findings/Remarks: Full review of systems obtained, as per HPI and otherwise negative Physical Examination Vital Signs: Vital Signs Temperature 37.3 C 10/04/17 11:32 Pulse Rate 77 10/04/17 11:32 Respiratory Rate 25 H 10/04/17 11:32 Blood Pressure 102/69 10/04/17 11:32 O2 Sat by Pulse Oximetry (%) 91 L 10/04/17 11:32 Constitutional: Yes: No Distress, Calm, Obese Eyes: Yes: Conjunctiva Clear, EOM Intact, PERRL HENT: Yes: Atraumatic, Normocephalic Cardiovascular: Yes: Regular Rate and Rhythm. No: Gallop, Murmur, Rub Respiratory: Yes: Cough (productive with green sputum), On Nasal O2, Rhonchi ( bilaterally), Tachypnea. No: Regular, CTA Bilaterally, Rales, Wheezes Gastrointestinal: Yes: Normal Bowel Sounds, Soft. No: Distention, Tenderness Extremities: Yes: WNL Edema: No Labs: CBC, BMP 10/04/17 12:31 10/04/17 12:31 Imaging - Results Chest X-ray: Report Reviewed, Image Reviewed Cat Scan: Report Reviewed Problem List - Problems (1) Pneumonia Assessment/Plan: -patient with pneumonia, found on CT scan -with history of vomiting, however he does not think he aspirated -must consider aspiration pneumonia -admit to telemetry since with sepsis -given vancomycin and zosyn in the ED -consult ID to evaluate for broad spectrum antibiotics -will order second dose of zosyn, considering renal function vancomycin dose in ED should be sufficient for coverage -blood cultures -urine for antigens -sputum cultures Code(s): J18.9 - PNEUMONIA, UNSPECIFIED ORGANISM Qualifiers: Pneumonia type: due to unspecified organism Laterality: right Lung location: unspecified part of lung Qualified Code(s): J18.9 - Pneumonia, unspecified organism (2) Sepsis Assessment/Plan: -patient presents with sepsis secondary to pneumonia -admit to telemetry and monitor for 24 hours -antibiotics as above -hydration with IVF Code(s): A41.9 - SEPSIS, UNSPECIFIED ORGANISM (3) Renal failure (ARF), acute on chronic Assessment/Plan: -consult nephrology for both ARF and metabolic acidosis -secondary to sepsis -hydration with IVF -hold all nephrotoxic drugs -monitor for improvement Code(s): N17.9 - ACUTE KIDNEY FAILURE, UNSPECIFIED; N18.9 - CHRONIC KIDNEY DISEASE, UNSPECIFIED (4) Metabolic acidosis Assessment/Plan: -suspect secondary to sepsis -treat underlying condition as above -nephrology consult Code(s): E87.2 - ACIDOSIS (5) COPD (chronic obstructive pulmonary disease) Assessment/Plan: -with exacerbation from pneumonia -antibiotics as above -bronchodilators prn -hold on steroids at this time Code(s): J44.9 - CHRONIC OBSTRUCTIVE PULMONARY DISEASE, UNSPECIFIED (6) CAD (coronary artery disease) Assessment/Plan: -quiescent -continue home regimen Code(s): I25.10 - ATHSCL HEART DISEASE OF [place] CORONARY ARTERY W/O ANG PCTRS Qualifiers: (7) Congestive heart failure (CHF) Assessment/Plan: -not in exacerbation -will need hydration with close monitoring Code(s): I50.9 - HEART FAILURE, UNSPECIFIED Qualifiers: Congestive heart failure type: systolic Congestive heart failure chronicity : chronic Qualified Code(s): I50.22 - Chronic systolic (congestive) heart failure (8) Diabetes mellitus Assessment/Plan: -continue home regimen with SSI -diabetic diet -may be elevated in the short term secondary to receiving solumedrol in the ED Code(s): E11.9 - TYPE 2 DIABETES MELLITUS WITHOUT COMPLICATIONS Qualifiers: Diabetes mellitus type: type 2 Diabetes mellitus complication status: with circulatory complication Diabetes mellitus complication detail: with peripheral angiopathy with gangrene Diabetes mellitus penitentiary insulin use: with technician terminal and repeater use Qualified Code(s): E11.52 - Type 2 diabetes mellitus with diabetic peripheral angiopathy with gangrene (9) Diabetic foot ulcer Assessment/Plan: -well controlled Code(s): E11.621 - TYPE 2 DIABETES MELLITUS WITH FOOT ULCER; L97.509 - NON- PRESSURE CHRONIC ULCER OTH PRT UNSP FOOT W UNSP SEVERITY (10) Hyperlipidemia Assessment/Plan: -continue statin Code(s): E78.5 - HYPERLIPIDEMIA, UNSPECIFIED (11) Hypertension Assessment/Plan: -hold hydralazine -continue toprol xl and imdur with hold precautions since for CAD -monitor for improvement Code(s): I10 - ESSENTIAL (PRIMARY) HYPERTENSION
--- NOTE | 2017-10-04 16:59 | CON.ID ---
Consult Consult Specialty:: Infectious Disease Reason for Consultation:: cough/shortness of breath - History of Present Illness History of Present Illness: This is a 67 y.o. male with multiple comorbities including CAD s/p stents, OR, CHF, CKD, DM, COPD on home O2 NC, ischemic cardiomyopathy, and CVA presenting with c/o shortness of breath which has been getting worse over the past few weeks. He reports productive cough with thick sputum. He denies fever, chills, chest pain, abd pain, +vomiting (on/off attributed to gastroparesis), diarrhea, dysuria. In ER noted to have elevated wbc count (25.8K). 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 No: AFIB Pulmonary: Yes: COPD Gastrointestinal: Yes: Other (Colitis) Renal/: Yes: Renal Inusuff, Other Psych: Yes: Addictions Musculoskeletal: Yes: Other (Lumbar radiculopathy) Endocrine: Yes: Diabetes Mellitus - Past Surgical History Past Surgical History: Yes: Stent - Alcohol/Substance Use Hx Alcohol Use: No History of Substance Use: reports: None - Smoking History Smoking history: Former smoker Have you smoked in the past 12 months: No Aproximately how many cigarettes per day: 30 If you are a former smoker, when did you quit?: 2017 - Social History Usual Living Arrangement: With Spouse ADL: Independent History of Recent Travel: No Home Medications - Allergies Allergies/Adverse Reactions: Allergies Allergy/AdvReac Type Severity Reaction Status Date / Time lansoprazole [From Prevacid] Allergy Intermediate Verified 10/04/17 17:07 - Home Medications Home Medications: Ambulatory Orders Aspirin [Ecotrin] 81 mg PO DAILY 04/29/15 Docusate Sodium [Colace -] 100 mg PO BID capsule 08/26/15 Hydralazine HCl [Apresoline -] 10 mg PO BID #180 tablet 08/14/16 Polyethylene Glycol 3350 [Miralax 119 gm Btl -] 17 gm PO BID PRN #0 bottle 08/14 Pregabalin [Lyrica] 50 mg PO BID 03/13/17 Isosorbide Mononitrate [Isosorbide Mononitrate ER] 30 mg PO DAILY 06/04/17 Acetaminophen [Tylenol .Regular Strength -] 650 mg PO Q4H PRN #90 tablet Atorvastatin Ca [Lipitor] 80 mg PO HS #30 tablet 06/10/17 Insulin Sliding Scale [Novolog Vial Sliding Scale -] 1 vial SQ ACHS #7 units 10/15 Metoprolol Succinate [Toprol XL -] 50 mg PO BID #30 tab 06/10/17 Pantoprazole Sodium [Protonix -] 40 mg PO DAILY #30 tab 06/10/17 Albuterol 0.083% Nebulizer Clarisse [Ventolin 0.083%] 1 neb NEB QID PRN 10/04/17 Furosemide [Lasix] 80 mg PO BID 10/04/17 Metolazone [Zaroxolyn -] 5 mg PO DAILY 10/04/17 Zolpidem Tartrate [Ambien] 10 mg PO HS 10/04/17 Family Disease History - Family Disease History Family Disease History: Diabetes: Grandparent, Sister (COPD), CA: Father, Respiratory: Sister, Other: Mother (CVA) Review of Systems - Review of Systems Constitutional: reports: Weakness Eyes: reports: No Symptoms HENT: reports: No Symptoms Neck: reports: No Symptoms Cardiovascular: reports: No Symptoms Respiratory: reports: Cough (productive of thick sputum) Gastrointestinal: reports: Vomiting (intermittently) Genitourinary: reports: No Symptoms Musculoskeletal: reports: No Symptoms Integumentary: reports: No Symptoms Neurological: reports: No Symptoms Endocrine: reports: No Symptoms Hematology/Lymphatic: reports: No Symptoms Psychiatric: reports: No Symptoms Physical Exam Vital Signs: Vital Signs Temperature 99.2 F 10/04/17 11:32 Pulse Rate 73 10/04/17 15:53 Respiratory Rate 17 10/04/17 15:53 Blood Pressure 117/53 10/04/17 15:53 O2 Sat by Pulse Oximetry (%) 2 L 10/04/17 15:53 Constitutional: Yes: No Distress HENT: Yes: Atraumatic Neck: Yes: Supple Cardiovascular: Yes: Regular Rate and Rhythm Respiratory: Yes: Rhonchi (scattered) Gastrointestinal: Yes: Normal Bowel Sounds, Soft ...Rectal Exam: Yes: Deferred Renal/: Yes: WNL Musculoskeletal: Yes: WNL Extremities: Yes: WNL Integumentary: Yes: WNL Neurological: Yes: Alert, Oriented Psychiatric: Yes: Alert Labs: CBC, BMP 10/04/17 12:31 10/04/17 12:31 Lactic acid - 1.2 Imaging - Results Chest X-ray: Report Reviewed Cat Scan: Report Reviewed (B/L consolidation, > RLL) Problem List - Problems (1) COPD (chronic obstructive pulmonary disease) Code(s): J44.9 - CHRONIC OBSTRUCTIVE PULMONARY DISEASE, UNSPECIFIED (2) Dyspnea Code(s): R06.00 - DYSPNEA, UNSPECIFIED (3) Orthopnea Code(s): R06.01 - ORTHOPNEA (4) Renal failure (ARF), acute on chronic Code(s): N17.9 - ACUTE KIDNEY FAILURE, UNSPECIFIED; N18.9 - CHRONIC KIDNEY DISEASE, UNSPECIFIED (5) Weakness Code(s): R53.1 - WEAKNESS (6) Acute on chronic systolic and diastolic heart failure, NYHA class 2 Code(s): I50.43 - ACUTE ON CHRONIC COMBINED SYSTOLIC AND DIASTOLIC HRT FAIL (7) CAD (coronary artery disease) Code(s): I25.10 - ATHSCL HEART DISEASE OF [place] CORONARY ARTERY W/O ANG PCTRS Qualifiers: (8) CKD (chronic kidney disease) Code(s): N18.9 - CHRONIC KIDNEY DISEASE, UNSPECIFIED Qualifiers: Chronic kidney disease stage: stage 2 (mild) Qualified Code(s): N18.2 - Chronic kidney disease, stage 2 (mild) (9) Cardiomyopathy Code(s): I42.9 - CARDIOMYOPATHY, UNSPECIFIED (10) Diabetes mellitus Code(s): E11.9 - TYPE 2 DIABETES MELLITUS WITHOUT COMPLICATIONS Qualifiers: Diabetes mellitus type: type 2 Diabetes mellitus complication status: with circulatory complication Diabetes mellitus complication detail: with peripheral angiopathy with gangrene Diabetes mellitus local company intermodal truck 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 insulin use: with local company intermodal truck driver use Qualified Code(s): E11.52 - Type 2 diabetes mellitus with diabetic peripheral angiopathy with gangrene (11) Leukocytosis Code(s): D72.829 - ELEVATED WHITE BLOOD CELL COUNT, UNSPECIFIED Qualifiers: Leukocytosis type: other Qualified Code(s): D72.828 - Other elevated white blood cell count (12) Pneumonia Code(s): J18.9 - PNEUMONIA, UNSPECIFIED ORGANISM Qualifiers: Pneumonia type: due to unspecified organism Laterality: right Lung location: unspecified part of lung Qualified Code(s): J18.9 - Pneumonia, unspecified organism Assessment/Plan 67 y.o. male with multiple medical problems admitted for shortness of breath and productive cough Pneumonia - Zosyn IV, Vancomycin based on levels for now - sputum/blood cultures - monitor wbc, temps - monitor vitals closely will f/u Thank you
[2017-10-04] MEDS: SODIUM CHLORIDE 1,000 ML IV SCH (18:00)
[2017-10-04 21:08] LABS: URINE APPEARANCE CLEAR; URINE BILIRUBIN NEGATIVE (NEGATIVE); URINE BLOOD NEGATIVE (NEGATIVE); URINE COLOR YELLOW; URINE GLUCOSE (UA) NEGATIVE (NEGATIVE); URINE KETONE NEGATIVE (NEGATIVE); URINE NITRITE NEGATIVE (NEGATIVE); URINE PROTEIN NEGATIVE (NEGATIVE); URINE UROBILINOGEN NORMAL mg/dL (0.2-1.0)
[2017-10-04 21:09] LABS: URINE HYALINE CAST 12 /lpf; URINE LEUK ESTERASE TRACE (NEGATIVE); URINE RBC 2 /hpf (0-3); URINE WBC 11 /hpf (3-5)
[2017-10-04] MEDS ORDERED: METOPROLOL SUCCINATE 50 MG TAB.SR.24H (FP) PO SCH (22:00)
[2017-10-04] MEDS: INSULIN DETEMIR 100 UNITS/ML MDV SQ SCH (22:04)
[2017-10-04] MEDS: INSULIN SLIDING SCALE (NOVOLOG) 1 VIAL SQ SCH (22:05)
[2017-10-04] MEDS: HEPARIN NA (PORCINE) 5,000 UNITS/ML 1ML VIAL SQ SCH (22:18)
[2017-10-04] MEDS: morphine SO4 SUSTAINED ACTING 30 MG TABLET.SA PO SCH (22:19)
[2017-10-04] MEDS: METOPROLOL SUCCINATE 50 MG TAB.SR.24H (FP) PO SCH (22:19)
[2017-10-04] MEDS: ACETAMINOPHEN 325 MG TABLET (FP) PO PRN (22:19)
[2017-10-04] MEDS: PREGABALIN 50 MG CAPSULE PO SCH (22:19)
[2017-10-04] MEDS: TEMAZEPAM 15 MG CAPSULE PO SCH (22:19)
[2017-10-04] MEDS: guaiFENesin 600 MG TABLET.ER (FP) PO SCH (22:19)
[2017-10-04] MEDS: ATORVASTATIN CA 80 MG TABLET (FP) PO SCH (22:19)
[2017-10-04] MEDS ORDERED: PIPERACILLIN/TAZOB 2.25 GM 2.25 GM in DEXTROSE 5%-WATER - 50 ML IVPB ONE (23:00)
[2017-10-05] MEDS: oxyCODONE HCL 5 MG TABLET PO PRN ×2 (01:20→07:45)
[2017-10-05] MEDS: SODIUM CHLORIDE 1,000 ML IV SCH ×2 (01:21→17:09)
[2017-10-05] MEDS: morphine SO4 SUSTAINED ACTING 30 MG TABLET.SA PO SCH ×3 (05:28→21:14)
[2017-10-05] MEDS: HEPARIN NA (PORCINE) 5,000 UNITS/ML 1ML VIAL SQ SCH ×3 (05:28→21:58)
[2017-10-05] MEDS: PIPERACILLIN/TAZOB 2.25 GM 2.25 GM in DEXTROSE 5%-WATER - 50 ML IVPB SCH ×3 (05:28→17:09)
[2017-10-05] MEDS: INSULIN SLIDING SCALE (NOVOLOG) 1 VIAL SQ SCH ×4 (06:02→21:55)
[2017-10-05] MEDS: INSULIN DETEMIR 100 UNITS/ML MDV SQ SCH (06:03)
[2017-10-05 07:44] LABS: MCH 27.5 pg (25.7-33.7); MCHC 31.2 g/dl (32.0-35.9); MEAN CELL VOLUME 87.9 fl (80-96); PLATELET COUNT 220 K/MM3 (134-434); RDW 22.2 % (11.9-15.9); WHITE BLOOD COUNT 21.2 K/mm3 (4.0-10.0)
[2017-10-05] MEDS: ACETAMINOPHEN 325 MG TABLET (FP) PO PRN (07:46)
[2017-10-05 07:56] LABS: GLUCOSE,RANDOM 119 mg/dL (74-106)
[2017-10-05 08:04] LABS: ANION GAP 11 (8-16); CO2 18 mmol/L (21-32); CREATININE 2.6 mg/dL (0.7-1.3); MAGNESIUM 1.8 mg/dL (1.8-2.4); PHOSPHOROUS 4.6 mg/dL (2.5-4.9)
[2017-10-05] MEDS: CLOPIDOGREL BISULFATE 75 MG TABLET (FP) PO SCH (09:13)
[2017-10-05] MEDS: PREGABALIN 50 MG CAPSULE PO SCH ×2 (09:13→21:14)
[2017-10-05] MEDS: ASPIRIN COATED 81 MG TABLET.EC PO SCH (09:13)
[2017-10-05] MEDS: ISOSORBIDE MONONITRATE 30 MG TAB.SR.24H (FP) PO SCH (09:13)
[2017-10-05] MEDS: LACTOBACILLUS ACIDOPHILUS 1 EACH TAB (FP) PO SCH (09:13)
[2017-10-05] MEDS: guaiFENesin 600 MG TABLET.ER (FP) PO SCH ×2 (09:13→21:14)
[2017-10-05] MEDS ORDERED: ISOSORBIDE MONONITRATE 30 MG TAB.SR.24H (FP) PO SCH (10:00)
[2017-10-05] MEDS: METOPROLOL SUCCINATE 50 MG TAB.SR.24H (FP) PO SCH ×2 (10:59→21:14)
--- NOTE | 2017-10-05 11:06 | PN ---
Progress Note, Physician Chief Complaint: Mr Scott says he is still having shortness of breath and coughing but it is improving. He says the cough is less and he is having less sputum production, but feels like he still needs to cough sputum up. He also says he had an episode of bilious emesis last night. Denies cp or current n/v. - Current Medication List Current Medications: Active Medications Acetaminophen (Tylenol -) 650 mg PO Q6H PRN PRN Reason: FEVER OR PAIN Last Admin: 10/05/17 07:46 Dose: 650 mg Albuterol/Ipratropium (Duoneb -) 1 amp NEB Q6H PRN PRN Reason: SHORTNESS OF BREATH Aspirin (Ecotrin -) 81 mg PO DAILY [facility] Last Admin: 10/05/17 09:13 Dose: 81 mg Atorvastatin Calcium (Lipitor -) 80 mg PO HS [facility] Last Admin: 10/04/17 22:19 Dose: 80 mg Clopidogrel Bisulfate (Plavix -) 75 mg PO DAILY [facility] Last Admin: 10/05/17 09:13 Dose: 75 mg Guaifenesin (Mucinex -) 600 mg PO BID [facility] Last Admin: 10/05/17 09:13 Dose: 600 mg Heparin Sodium (Porcine) (Heparin -) 5,000 unit SQ TID [facility] Last Admin: 10/05/17 05:28 Dose: 5,000 unit Sodium Chloride (Normal Saline -) 1,000 mls @ 75 mls/hr IV ASDIR [facility] Last Admin: 10/05/17 01:21 Dose: 75 mls/hr Piperacillin Sod/Tazobactam (Sod 2.25 gm/ Dextrose) 50 mls @ 100 mls/hr IVPB Q6H RADHA PRN Reason: Protocol Last Admin: 10/05/17 05:28 Dose: 100 mls/hr Insulin Aspart (Novolog Vial Sliding Scale -) 1 vial SQ ACHS [facility] PRN Reason: Protocol Last Admin: 10/05/17 06:02 Dose: Not Given Isosorbide Mononitrate (Imdur -) 30 mg PO DAILY [facility] Last Admin: 10/05/17 09:13 Dose: 30 mg Lactobacillus Acidophilus (Bacid -) 1 tab PO DAILY [facility] Last Admin: 10/05/17 09:13 Dose: 1 tab Metoprolol Succinate (Toprol Xl -) 50 mg PO BID [facility] Last Admin: 10/05/17 10:59 Dose: 50 mg Morphine Sulfate (Ms Contin -) 90 mg PO TID [facility] Last Admin: 10/05/17 05:28 Dose: 90 mg Ondansetron HCl (Zofran Injection) 4 mg IVPUSH Q6H PRN PRN Reason: NAUSEA Last Admin: 10/04/17 21:00 Dose: 4 mg Oxycodone HCl (Roxicodone -) 10 mg PO Q4H PRN PRN Reason: PAIN Last Admin: 10/05/17 07:45 Dose: 10 mg Polyethylene Glycol (Miralax (For Daily Use) -) 17 gm PO BID PRN PRN Reason: CONSTIPATION Pregabalin (Lyrica -) 50 mg PO BID [facility] Last Admin: 10/05/17 09:13 Dose: 50 mg Temazepam (Restoril -) 30 mg PO HS [facility] Last Admin: 10/04/17 22:19 Dose: 30 mg - Objective Vital Signs: Vital Signs Temperature 37.1 C 10/05/17 05:38 Pulse Rate 60 10/05/17 05:38 Respiratory Rate 20 10/05/17 05:38 Blood Pressure 111/48 10/05/17 05:38 O2 Sat by Pulse Oximetry (%) 92 L 10/04/17 22:00 Constitutional: Yes: No Distress, Calm, Obese Cardiovascular: Yes: Regular Rate and Rhythm. No: Gallop, Murmur, Rub Respiratory: Yes: Regular, On Nasal O2, Rhonchi. No: CTA Bilaterally, Rales, Wheezes Gastrointestinal: Yes: Normal Bowel Sounds, Soft. No: Distention, Tenderness Extremities: Yes: WNL Edema: No Labs: CBC, BMP 10/05/17 05:35 10/05/17 05:35 INR, PTT INR 1.04 (0.82-1.09) 10/04/17 12:31 Problem List - Problems (1) Pneumonia Code(s): J18.9 - PNEUMONIA, UNSPECIFIED ORGANISM Qualifiers: Pneumonia type: due to unspecified organism Laterality: right Lung location: unspecified part of lung Qualified Code(s): J18.9 - Pneumonia, unspecified organism (2) Sepsis Code(s): A41.9 - SEPSIS, UNSPECIFIED ORGANISM (3) Renal failure (ARF), acute on chronic Code(s): N17.9 - ACUTE KIDNEY FAILURE, UNSPECIFIED; N18.9 - CHRONIC KIDNEY DISEASE, UNSPECIFIED (4) Metabolic acidosis Code(s): E87.2 - ACIDOSIS (5) COPD (chronic obstructive pulmonary disease) Code(s): J44.9 - CHRONIC OBSTRUCTIVE PULMONARY DISEASE, UNSPECIFIED (6) CAD (coronary artery disease) Code(s): I25.10 - ATHSCL HEART DISEASE OF THREE AFFILIATED CORONARY ARTERY W/O ANG PCTRS Qualifiers: (7) Congestive heart failure (CHF) Code(s): I50.9 - HEART FAILURE, UNSPECIFIED Qualifiers: Congestive heart failure type: systolic Congestive heart failure chronicity : chronic Qualified Code(s): I50.22 - Chronic systolic (congestive) heart failure (8) Diabetes mellitus Code(s): E11.9 - TYPE 2 DIABETES MELLITUS WITHOUT COMPLICATIONS Qualifiers: Diabetes mellitus type: type 2 Diabetes mellitus complication status: with circulatory complication Diabetes mellitus complication detail: with peripheral angiopathy with gangrene Diabetes mellitus custodial insulin use: with watermelon harvesting supervisor use Qualified Code(s): E11.52 - Type 2 diabetes mellitus with diabetic peripheral angiopathy with gangrene (9) Diabetic foot ulcer Code(s): E11.621 - TYPE 2 DIABETES MELLITUS WITH FOOT ULCER; L97.509 - NON- PRESSURE CHRONIC ULCER OTH PRT UNSP FOOT W UNSP SEVERITY (10) Hyperlipidemia Code(s): E78.5 - HYPERLIPIDEMIA, UNSPECIFIED (11) Hypertension Code(s): I10 - ESSENTIAL (PRIMARY) HYPERTENSION Assessment/Plan (1) Pneumonia Assessment/Plan: -appreciate ID assistance, case discussed yesterday -continue vancomycin and zosyn -dosing vancomycin by level secondary to renal function -follow up cultures Code(s): J18.9 - PNEUMONIA, UNSPECIFIED ORGANISM Qualifiers: Pneumonia type: due to unspecified organism Laterality: right Lung location: unspecified part of lung Qualified Code(s): J18.9 - Pneumonia, unspecified organism (2) Sepsis Assessment/Plan: -present but improving -continue antibiotics and IVF Code(s): A41.9 - SEPSIS, UNSPECIFIED ORGANISM (3) Renal failure (ARF), acute on chronic Assessment/Plan: -nephrology consulted -renal ultrasound reviewed -improved today but still decreased -await nephrology recommendations Code(s): N17.9 - ACUTE KIDNEY FAILURE, UNSPECIFIED; N18.9 - CHRONIC KIDNEY DISEASE, UNSPECIFIED (4) Metabolic acidosis Assessment/Plan: -bicarb improved today -secondary to sepsis -defer to nephrology if needs bicarb supplementation Code(s): E87.2 - ACIDOSIS (5) COPD (chronic obstructive pulmonary disease) Assessment/Plan: -with exacerbation from pneumonia -antibiotics as above -bronchodilators prn -no current need for steroids Code(s): J44.9 - CHRONIC OBSTRUCTIVE PULMONARY DISEASE, UNSPECIFIED (6) CAD (coronary artery disease) Assessment/Plan: -quiescent -continue home regimen Code(s): I25.10 - ATHSCL HEART DISEASE OF THREE AFFILIATED CORONARY ARTERY W/O ANG PCTRS Qualifiers: (7) Congestive heart failure (CHF) Assessment/Plan: -not in exacerbation -will need hydration with close monitoring -will leave on telemetry today since still hydrating, if remains stable and improves can move to med/surg tomorrow Code(s): I50.9 - HEART FAILURE, UNSPECIFIED Qualifiers: Congestive heart failure type: systolic Congestive heart failure chronicity : chronic Qualified Code(s): I50.22 - Chronic systolic (congestive) heart failure (8) Diabetes mellitus Assessment/Plan: -hold levemir, well controlled -continue diabetic diet and SSI Code(s): E11.9 - TYPE 2 DIABETES MELLITUS WITHOUT COMPLICATIONS Qualifiers: Diabetes mellitus type: type 2 Diabetes mellitus complication status: with circulatory complication Diabetes mellitus complication detail: with peripheral angiopathy with gangrene Diabetes mellitus custodial insulin use: with watermelon harvesting supervisor use Qualified Code(s): E11.52 - Type 2 diabetes mellitus with diabetic peripheral angiopathy with gangrene (9) Diabetic foot ulcer Assessment/Plan: -well controlled Code(s): E11.621 - TYPE 2 DIABETES MELLITUS WITH FOOT ULCER; L97.509 - NON- PRESSURE CHRONIC ULCER OTH PRT UNSP FOOT W UNSP SEVERITY (10) Hyperlipidemia Assessment/Plan: -continue statin Code(s): E78.5 - HYPERLIPIDEMIA, UNSPECIFIED (11) Hypertension Assessment/Plan: -hold hydralazine -continue toprol xl and imdur with hold precautions since for CAD -monitor for improvement Code(s): I10 - ESSENTIAL (PRIMARY) HYPERTENSION (12) Emesis -suspected gastroparesis exacerbated by sepsis -continue treating infection -monitor to see if improves with treatment of sepsis -if not, will consult GI for evaluation
--- NOTE | 2017-10-05 11:09 | CON.NEP ---
Consult Consult Specialty:: Nephrology Referred by:: Dr. Huang Reason for Consultation:: Acute Kidney Injury on CKD - History of Present Illness Chief Complaint: Fatigue/Weakness History of Present Illness: This is a 67 year old gentleman with PMhx of CKD/BRANT, DM type 2, COPD, Neuropathy, CVA, CAD, CHF who presented with weakness/fatigue and found to have PNA withi BRANT. Pt states that he has been feeling unwell for several days. No fever, chills. No SOb. + occasional cough. Pt reports no change in urine output. No hematuria, flank pain. + NSAID use (Advil 3-4x daily). No contrast exposure. No outpatient Abx used. No rash. No LE swelling. 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 No: AFIB Pulmonary: Yes: COPD Gastrointestinal: Yes: Other (Colitis) Renal/: Yes: Renal Inusuff, Other (hyperkalemia) Psych: Yes: Addictions Musculoskeletal: Yes: Other (Lumbar radiculopathy) Endocrine: Yes: Diabetes Mellitus - Past Surgical History Past Surgical History: Yes: Stent - Alcohol/Substance Use Hx Alcohol Use: No History of Substance Use: reports: None - Smoking History Smoking history: Former smoker Have you smoked in the past 12 months: No Aproximately how many cigarettes per day: 30 If you are a former smoker, when did you quit?: 2017 - Social History Usual Living Arrangement: With Spouse ADL: Independent History of Recent Travel: No Home Medications - Allergies Allergies/Adverse Reactions: Allergies Allergy/AdvReac Type Severity Reaction Status Date / Time lansoprazole [From Prevacid] Allergy Intermediate Verified 10/04/17 17:07 - Home Medications Home Medications: Ambulatory Orders Aspirin [Ecotrin] 81 mg PO DAILY 04/29/15 Docusate Sodium [Colace -] 100 mg PO BID capsule 08/26/15 Hydralazine HCl [Apresoline -] 10 mg PO BID #180 tablet 08/14/16 Polyethylene Glycol 3350 [Miralax 119 gm Btl -] 17 gm PO BID PRN #0 bottle 08/14 Pregabalin [Lyrica] 50 mg PO BID 03/13/17 Isosorbide Mononitrate [Isosorbide Mononitrate ER] 30 mg PO DAILY 06/04/17 Acetaminophen [Tylenol .Regular Strength -] 650 mg PO Q4H PRN #90 tablet Atorvastatin Ca [Lipitor] 80 mg PO HS #30 tablet 06/10/17 Insulin Sliding Scale [Novolog Vial Sliding Scale -] 1 vial SQ ACHS #7 units 10/15 Metoprolol Succinate [Toprol XL -] 50 mg PO BID #30 tab 06/10/17 Pantoprazole Sodium [Protonix -] 40 mg PO DAILY #30 tab 06/10/17 Albuterol 0.083% Nebulizer Clarisse [Ventolin 0.083%] 1 neb NEB QID PRN 10/04/17 Furosemide [Lasix] 80 mg PO BID 10/04/17 Metolazone [Zaroxolyn -] 5 mg PO DAILY 10/04/17 Zolpidem Tartrate [Ambien] 10 mg PO HS 10/04/17 Family Disease History - Family Disease History Family Disease History: Diabetes: Grandparent, Sister (COPD), CA: Father, Respiratory: Sister, Other: Mother (CVA) Review of Systems - Review of Systems Constitutional: reports: Lethargy, Loss of Appetite, Weakness Eyes: reports: No Symptoms HENT: reports: No Symptoms Neck: reports: No Symptoms Cardiovascular: denies: Chest Pain, Edema, Palpitations, Shortness of Breath Respiratory: reports: Cough. denies: Exercise Intolerance, Hemoptysis, Orthopnea, SOB, SOB on Exertion Gastrointestinal: reports: No Symptoms Genitourinary: reports: No Symptoms Musculoskeletal: reports: No Symptoms Neurological: reports: No Symptoms Endocrine: reports: No Symptoms Hematology/Lymphatic: reports: No Symptoms Nephrology Consult - Height Height: 5 ft 8 in - Weight Weight: 86.636 kg - BMI Body Mass Index (BMI): 29.0 - Lab Results CBC,BMP: CBC, BMP 10/05/17 05:35 10/05/17 05:35 Anion Gap: Anion Gap Anion Gap 11 (8-16) 10/05/17 05:35 - Imaging Chest X-ray: Report Reviewed - Physical Examination Vital Signs: Vital Signs Temperature 98.7 F 10/05/17 05:38 Pulse Rate 60 10/05/17 05:38 Respiratory Rate 20 10/05/17 05:38 Blood Pressure 111/48 10/05/17 05:38 O2 Sat by Pulse Oximetry (%) 92 L 10/04/17 22:00 Constitutional: Yes: Well Nourished, No Distress Eyes: Yes: Conjunctiva Clear HENT: Yes: Atraumatic Neck: Yes: Supple Cardiovascular: Yes: Regular Rate and Rhythm. No: JVD, Murmur, Rub Respiratory: Yes: Regular, CTA Bilaterally Gastrointestinal: Yes: Normal Bowel Sounds, Soft Renal/: No: Anuria, Bladder Distention, CVA Tenderness - Left, CVA Tenderness - Right, [place] Present, Hematuria Edema: No Neurological: Yes: Alert, Oriented Assessment/Plan 67 year old gentleman with PMhx of CKD/BRANT, DM type 2, COPD, Neuropathy, CVA, CAD, CHF who presented with weakness/fatigue and found to have PNA withi BRANT #Acute Kidney Injury on CKD secondary to renal hypoprofusion in setting of Sepsis/NSAID use Urine studies showed no proteinuria or sediment FeNa was 0.7% indicating preserved tubular function hold any diuretics/ACEi/ARB avoid further NSAID exposure or contrast exposure at this time continue isotonic saline at 75cc per hour strict I and O dose all meds for CrCl less then 20 no indication for [employer] #PNA/Sepsis continue Abx as per ID/PMD supportive care #Non-Anion gap metabolic acidosis check Urine anion gap start sodium bicarb 650mg Daily #Anemia Trend CBC no acute indication for transfusion at this time Thank you Will follow Gerber Rodriguez DO
--- NOTE | 2017-10-05 11:18 | CON.CARD ---
Cardiology Consult (text) - Consultation Consultation Note: Chief Complaint: n/v History of Present Illness: 67 yo male DM, CKD, CVA 10/2104 without residual deficits. Known CAD with reported "5 prior stents and MIs" last PCI in 2011 Ischemic CMY with systolic LV dysfunction. PAD bilateral LE with non-healing ulcer and COPD with tobacco history Here now after several days of n/v at home. No cp, sob, palps, dizzy, loc, pnd , orthopnea, le edema. Being treated for pna. 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 No: AFIB Pulmonary: Yes: COPD Gastrointestinal: Yes: Other (Colitis) Renal/: Yes: Renal Inusuff, Other (hyperkalemia) Psych: Yes: Addictions Musculoskeletal: Yes: Other (Lumbar radiculopathy) Endocrine: Yes: Diabetes Mellitus - Past Surgical History Past Surgical History: Yes: Stent - Alcohol/Substance Use Hx Alcohol Use: No History of Substance Use: reports: None - Smoking History Smoking history: ex tob - Social History Usual Living Arrangement: With Spouse ADL: Independent History of Recent Travel: No Home Medications - Allergies Allergies/Adverse Reactions: Allergies Allergy/AdvReac Type Severity Reaction Status Date / Time lansoprazole [From Prevacid] Allergy Intermediate Verified 10/04/17 17:07 - Home Medications Home Medications Medication Instructions Recorded Aspirin [Ecotrin] 81 mg PO DAILY 04/29/15 Docusate Sodium [Colace -] 100 mg PO BID capsule 08/26/15 Hydralazine HCl [Apresoline -] 10 mg PO BID #180 tablet 08/14/16 Polyethylene Glycol 3350 [Miralax 17 gm PO BID PRN #0 bottle 08/14/16 119 gm Btl -] Pregabalin [Lyrica] 50 mg PO BID 03/13/17 Isosorbide Mononitrate [Isosorbide 30 mg PO DAILY 06/04/17 Mononitrate ER] Acetaminophen [Tylenol .Regular 650 mg PO Q4H PRN #90 tablet 06/10/17 Strength -] Atorvastatin Ca [Lipitor] 80 mg PO HS #30 tablet 06/10/17 Insulin Sliding Scale [Novolog 1 vial SQ ACHS #7 units 06/10/17 Vial Sliding Scale -] Metoprolol Succinate [Toprol XL -] 50 mg PO BID #30 tab 06/10/17 Pantoprazole Sodium [Protonix -] 40 mg PO DAILY #30 tab 06/10/17 Albuterol 0.083% Nebulizer Clarisse 1 neb NEB QID PRN 10/04/17 [Ventolin 0.083%] Furosemide [Lasix] 80 mg PO BID 10/04/17 Metolazone [Zaroxolyn -] 5 mg PO DAILY 10/04/17 Zolpidem Tartrate [Ambien] 10 mg PO HS 10/04/17 Family Disease History - Family Disease History Family Disease History: Diabetes: Grandparent, Sister (COPD), CA: Father, Respiratory: Sister, Other: Mother (CVA) Review of Systems - Review of Systems per hpi; no nvd, salas, vision changes, gib, hematuria, dysuria, muscle pain Physical Exam Vital Signs: Vital Signs Period Temp Pulse Resp BP Sys/Chandra Pulse Ox Last 24 Hr 98.2 F-101.9 F 60-90 17-25 102-154/48-77 2-93 nad no jvd rrr s1s2 no mrg cta bl nl eff aaox3 no le e/c/c abd nt nd pos bs no jaundice diaphoresis pos dp pt no carotid bruits Current Medications Generic Name Dose Route Start Last Admin Trade Name Freq PRN Reason Stop Dose Admin Acetaminophen 650 mg 10/04/17 20:53 10/05/17 07:46 Tylenol - PO 650 mg Q6H PRN Administration FEVER OR PAIN Albuterol/Ipratropium 1 amp 10/04/17 16:32 Duoneb - NEB Q6H PRN SHORTNESS OF BREATH Aspirin 81 mg 10/05/17 10:00 10/05/17 09:13 Ecotrin - PO 81 mg DAILY RADHA Administration Atorvastatin Calcium 80 mg 10/04/17 22:00 10/04/17 22:19 Lipitor - PO 80 mg HS RADHA Administration Clopidogrel Bisulfate 75 mg 10/05/17 10:00 10/05/17 09:13 Plavix - PO 75 mg DAILY RADHA Administration Guaifenesin 600 mg 10/04/17 22:00 10/05/17 09:13 Mucinex - PO 600 mg BID RADHA Administration Heparin Sodium (Porcine) 5,000 unit 10/04/17 22:00 10/05/17 05:28 Heparin - SQ 5,000 unit TID RADHA Administration Sodium Chloride 1,000 mls @ 75 mls/hr 10/04/17 16:30 10/05/17 01:21 Normal Saline - IV 75 mls/hr ASDIR RADHA Administration Piperacillin Sod/Tazobactam 50 mls @ 100 mls/hr 10/05/17 06:00 10/05/17 05:28 Sod 2.25 gm/ Dextrose IVPB 100 mls/hr Q6H RADHA Administration Protocol Insulin Aspart 1 vial 10/04/17 22:00 10/05/17 06:02 Novolog Vial Sliding Scale - SQ Not Given ACHS [facility] Protocol Isosorbide Mononitrate 30 mg 10/05/17 10:00 10/05/17 09:13 Imdur - PO 30 mg DAILY RADHA Administration Lactobacillus Acidophilus 1 tab 10/05/17 10:00 10/05/17 09:13 Bacid - PO 1 tab DAILY RADHA Administration Metoprolol Succinate 50 mg 10/04/17 22:00 10/05/17 10:59 Toprol Xl - PO 50 mg BID RADHA Administration Morphine Sulfate 90 mg 10/04/17 22:00 10/05/17 05:28 Ms Contin - PO 90 mg TID RADHA Administration Ondansetron HCl 4 mg 10/04/17 16:26 10/04/17 21:00 Zofran Injection IVPUSH 4 mg Q6H PRN Administration NAUSEA Oxycodone HCl 10 mg 10/04/17 16:21 10/05/17 07:45 Roxicodone - PO 10 mg Q4H PRN Administration PAIN Polyethylene Glycol 17 gm 10/04/17 16:21 Miralax (For Daily Use) - PO BID PRN CONSTIPATION Pregabalin 50 mg 10/04/17 22:00 10/05/17 09:13 Lyrica - PO 50 mg BID RADHA Administration Temazepam 30 mg 10/04/17 22:00 10/04/17 22:19 Restoril - PO 30 mg HS RADHA Administration Laboratory Last Values WBC 21.2 K/mm3 (4.0-10.0) H 10/05/17 05:35 RBC 3.74 M/mm3 (4.00-5.60) L 10/05/17 05:35 Hgb 10.3 GM/dL (11.7-16.9) L 10/05/17 05:35 Hct 32.9 % (35.4-49) L 10/05/17 05:35 MCV 87.9 fl (80-96) 10/05/17 05:35 MCH 27.5 pg (25.7-33.7) 10/05/17 05:35 MCHC 31.2 g/dl (32.0-35.9) L 10/05/17 05:35 RDW 22.2 % (11.9-15.9) H 10/05/17 05:35 Plt Count 220 K/MM3 (134-434) 10/05/17 05:35 MPV 9.0 fl (7.5-11.1) 10/05/17 05:35 Total Counted 100 10/04/17 12:31 Neutrophils % No Result Required. 10/04/17 12:31 Neutrophils % (Manual) 88.0 % (42.8-82.8) H 10/04/17 12:31 Lymphocytes % No Result Required. 10/04/17 12:31 Lymphocytes % (Manual) 5.0 % (8-40) L 10/04/17 12:31 Monocytes % (Manual) 7 % (3.8-10.2) 10/04/17 12:31 Platelet Estimate Adequate 10/04/17 12:31 Anisocytosis 1+ 10/04/17 12:31 PT with INR 11.80 SEC (9.98-11.88) 10/04/17 12:31 INR 1.04 (0.82-1.09) 10/04/17 12:31 PTT (Actin FS) 34.5 SECONDS (26.9-34.4) H 10/04/17 12:31 Puncture Site Left radial 10/04/17 14:00 ABG pH 7.27 (7.35-7.45) L D 10/04/17 14:00 ABG pCO2 at Pt Temp 39.1 mmHg (35-45) 10/04/17 14:00 ABG pO2 at Pt Temp 62.4 mmHg (80-100) L 10/04/17 14:00 ABG HCO3 17.5 meq/L (22-26) L 10/04/17 14:00 ABG O2 Sat (Measured) 90.4 % (90-98.9) 10/04/17 14:00 ABG O2 Content 14.2 % vol (15-22) L 10/04/17 14:00 ABG Base Excess -8.3 meq/l (-2-2) L 10/04/17 14:00 Alfredo Test Positive 10/04/17 14:00 Carboxyhemoglobin 1.7 gm% (0.5-2.0) 10/04/17 14:00 Methemoglobin 0.8 % (0.4-1.5) 10/04/17 14:00 O2 Delivery Device N/c 10/04/17 14:00 Oxygen Flow Rate 2l 10/04/17 14:00 Sodium 143 mmol/L (136-145) 10/05/17 05:35 Potassium 3.8 mmol/L (3.5-5.1) 10/05/17 05:35 Chloride 114 mmol/L (98-107) H 10/05/17 05:35 Carbon Dioxide 18 mmol/L (21-32) L 10/05/17 05:35 Anion Gap 11 (8-16) 10/05/17 05:35 BUN 62 mg/dL (7-18) H 10/05/17 05:35 Creatinine 2.6 mg/dL (0.7-1.3) H 10/05/17 05:35 Creat Clearance w eGFR 20.85 (>60) 10/04/17 12:31 POC Glucometer 103 UNITS (80-120) 10/05/17 05:27 Random Glucose 119 mg/dL (74-106) H 10/05/17 05:35 Lactic Acid 1.2 mmol/L (0.4-2.0) 10/04/17 12:31 Calcium 8.0 mg/dL (8.5-10.1) L 10/05/17 05:35 Phosphorus 4.6 mg/dL (2.5-4.9) 10/05/17 05:35 Magnesium 1.8 mg/dL (1.8-2.4) 10/05/17 05:35 Total Bilirubin 0.3 mg/dL (0.2-1.0) D 10/04/17 12:31 AST < 3 U/L (15-37) L D 10/04/17 12:31 ALT 12 U/L (12-78) 10/04/17 12:31 Alkaline Phosphatase 67 U/L (45-117) D 10/04/17 12:31 Creatine Kinase 21 IU/L (39-308) L 10/04/17 12:31 Troponin I 0.02 ng/ml (0.00-0.05) 10/04/17 12:31 B-Natriuretic Peptide 5549.92 pg/ml (5-125) H 10/04/17 13:20 Total Protein 6.3 g/dl (6.4-8.2) L 10/04/17 12:31 Albumin 3.2 g/dl (3.4-5.0) L D 10/04/17 12:31 Urine Color Yellow 10/04/17 19:50 Urine Appearance Clear 10/04/17 19:50 Urine pH 5.0 (5.0-8.0) 10/04/17 19:50 Ur Specific [place] 1.020 (1.001-1.035) 10/04/17 19:50 Urine Protein Negative (NEGATIVE) 10/04/17 19:50 Urine Glucose (UA) Negative (NEGATIVE) 10/04/17 19:50 Urine Ketones Negative (NEGATIVE) 10/04/17 19:50 Urine Blood Negative (NEGATIVE) 10/04/17 19:50 Urine Nitrite Negative (NEGATIVE) 10/04/17 19:50 Urine Bilirubin Negative (NEGATIVE) 10/04/17 19:50 Urine Urobilinogen Normal mg/dL (0.2-1.0) 10/04/17 19:50 Urine WBC (Auto) 11 /hpf (3-5) 10/04/17 19:50 Urine RBC (Auto) 2 /hpf (0-3) 10/04/17 19:50 Hyaline Casts 12 /lpf 10/04/17 19:50 Ur Random Sodium 34 MMOL/L 10/04/17 19:50 Ur Random Urea Nitrogn 499 mg/dL 10/04/17 19:50 Urine Creatinine 97.8 mg/dL (20-370) 10/04/17 19:50 Echo 05/15: mod to sev decr LVEF; severe hypokinesis of all lindsey except basal segments. nl RV. mild MR/TR. no peric eff. Echo 01/2017: mild global HK, lvef 45-50, nl rv, nl rvsp, mild lae, mild tr Echo 12/2016: TDS; LVSF is "at least mildly reduced: RWM assessment tds; nl RV; nl LA; mild MR/TR; no veg seen (Gitig review: EF mod-severely decr'd, ? global (cannot accurately assess for RWMAs)--suspect EF is 35-40%.) Echo 04/2015: mod global HK; RV tds; trace AI C 05/15: 70-80% mRCA (ISR), 70-80% RPDA (ISR); 70-80% mLAD; 80-90% pLCX (small vessel); 90-95% OM2 (large vessel); 80-90% prox Ramus (large vessel) ...nonobstructive dz of note [id number]% ostial RCA, 50-60% eccentric lesion OM1 (large vessel); EDP 30-->25 post-nitro EF 38% (diffuse WMAs) Syntax score 20 ct chest: rul pna EKG 10/05: SR, mobitz 1, old IWMI, nonsp ST-Ts lateral leads--no change vs priors tele: sr, mobitz 1, no pathologic bradycardia a/p: pna: -cont abx CAD: -s/p PCI (LIBBY) to 100% occl RPDA in 2004 ([facility]) with patent prior RCA stents at that time, EF 50% then; -s/p anterior STEMI 2011 with [facility] LIBBY x 2 to mid LAD then ([facility]); residual dz then included 80% prox D1 (large vessel), 95% mD1; 70%mRCA (pre and post prior stents), 70% dCFX; (also 40% RPDA; 60% pCFX; 40% mCFX;) EF then 37% with AK of apex/AL lindsey and AK of IW; -s/p NSTEMI 05/15 in setting of sepsis/PNA possible trigger -extensive multivessel CAD at cath (as above)--pt offered cabg at [facility] but he declined, was discharged home on 05/28. Then pt reconsidered but discussed case with [facility] and they wanted him to have improved functional status prior to cabg as in his state of debilitation he will be higher risk for surgical complications/poor post op recovery. -on ASA and plavix from before (for recurrent CVAs) -on BB, high intensity statin , imdur -no signs acs isch CMP/ chronic syst CHF: -moderately decr'd EF 05/15 -cont bb, hydralazine/nitrates -per pmd office records, pt was on ramipril in past, creat went up to 2.5 so it was stopped close to 2 yrs ago. given pt's repeated failure to follow up regularly in office with us, i would not rec resuming WENDY trial as he will need very frequent outpt labs monitoring. if he decides to follow with cardio regularly, can try lower effective dose ( e.g. lisinopril 2.5) than what he was previously on, and try titrate up slowly. currently on alternative hydral/imdur combo. con't for now. -currently vol depleted with brant so getting ivfs, monitor vol status HTN: -cont current meds h/o CVA: -dx'd lacunar infarct 02/10 clinically then (slurred speech) -? acute CVA/TIA 11/13, seen by neuro then--ASA added to prior plavix at that time -same meds BRANT on CKD: -cr freq fluctuates 1.5-2.9 on past admits here -currently with brant, getting ivfs, improving abnl ecg, mobitz I 2nd degree AVB, chronic: -seen on tele here on several occasions, no significant pauses, benign.
[2017-10-05] MEDS ORDERED: PT OWN MED DRAWER 7, Y5N ONE ×2 (11:19→16:54)
--- NOTE | 2017-10-05 11:38 | EKG ---
Test Reason : Blood Pressure : / mmHG Vent. Rate : 077 BPM Atrial Rate : 077 BPM P-R Int : 310 ms QRS Dur : 102 ms QT Int : 374 ms P-R-T Axes : 037 -47 083 degrees QTc Int : 423 ms SINUS RHYTHM WITH 1ST DEGREE A-V BLOCK LEFT ANTERIOR FASCICULAR BLOCK MODERATE VOLTAGE CRITERIA FOR LVH, MAY BE NORMAL VARIANT INFERIOR INFARCT (CITED ON OR BEFORE 16-SEP-2001) CANNOT RULE OUT ANTERIOR INFARCT (CITED ON OR BEFORE 10-MAR-2013) ABNORMAL ECG WHEN COMPARED WITH ECG OF 04-JUN-2017 18:41, PREMATURE VENTRICULAR COMPLEXES ARE NO LONGER PRESENT SERIAL CHANGES OF INFERIOR INFARCT PRESENT Confirmed by JOAO MAYEN MD ([id number]) on 10/05/2017 3:26:08 PM Referred By: Confirmed By:JOAO MAYEN MD
[2017-10-05 12:18] LABS: URINE LEUK ESTERASE TRACE (NEGATIVE)
--- NOTE | 2017-10-05 15:26 | EKG ---
Test Reason : Blood Pressure : / mmHG Vent. Rate : 055 BPM Atrial Rate : 068 BPM P-R Int : 304 ms QRS Dur : 104 ms QT Int : 412 ms P-R-T Axes : 025 -38 100 degrees QTc Int : 394 ms SINUS RHYTHM WITH 1ST DEGREE A-V BLOCK WITH BLOCKED PREMATURE ATRIAL COMPLEXES LEFT AXIS DEVIATION MINIMAL VOLTAGE CRITERIA FOR LVH, MAY BE NORMAL VARIANT INFERIOR INFARCT (CITED ON OR BEFORE 16-SEP-2001) CANNOT RULE OUT ANTERIOR INFARCT (CITED ON OR BEFORE 10-MAR-2013) T WAVE ABNORMALITY, CONSIDER LATERAL ISCHEMIA ABNORMAL ECG WHEN COMPARED WITH ECG OF 04-OCT-2017 11:23, PREMATURE ATRIAL COMPLEXES ARE NOW PRESENT SERIAL CHANGES OF INFERIOR INFARCT PRESENT Confirmed by JOAO MAYEN MD ([id number]) on 10/05/2017 3:25:39 PM Referred By: Confirmed By:JOAO MAYEN MD
--- NOTE | 2017-10-05 16:25 | PN ---
Progress Note, Physician History of Present Illness: Pt appears more comfortable. Still with some SOB with productive cough. Febrile to 101.9F last night. Today has been afebrile. No other new complaints. - Current Medication List Current Medications: Active Medications Acetaminophen (Tylenol -) 650 mg PO Q6H PRN PRN Reason: FEVER OR PAIN Last Admin: 10/05/17 07:46 Dose: 650 mg Albuterol/Ipratropium (Duoneb -) 1 amp NEB Q6H PRN PRN Reason: SHORTNESS OF BREATH Aspirin (Ecotrin -) 81 mg PO DAILY [facility] Last Admin: 10/05/17 09:13 Dose: 81 mg Atorvastatin Calcium (Lipitor -) 80 mg PO HS [facility] Last Admin: 10/04/17 22:19 Dose: 80 mg Clopidogrel Bisulfate (Plavix -) 75 mg PO DAILY [facility] Last Admin: 10/05/17 09:13 Dose: 75 mg Guaifenesin (Mucinex -) 600 mg PO BID [facility] Last Admin: 10/05/17 09:13 Dose: 600 mg Heparin Sodium (Porcine) (Heparin -) 5,000 unit SQ TID [facility] Last Admin: 10/05/17 13:05 Dose: 5,000 unit Sodium Chloride (Normal Saline -) 1,000 mls @ 75 mls/hr IV ASDIR [facility] Last Admin: 10/05/17 01:21 Dose: 75 mls/hr Piperacillin Sod/Tazobactam (Sod 2.25 gm/ Dextrose) 50 mls @ 100 mls/hr IVPB Q6H [facility] PRN Reason: Protocol Last Admin: 10/05/17 11:24 Dose: 100 mls/hr Insulin Aspart (Novolog Vial Sliding Scale -) 1 vial SQ ACHS [facility] PRN Reason: Protocol Last Admin: 10/05/17 11:26 Dose: Not Given Isosorbide Mononitrate (Imdur -) 30 mg PO DAILY [facility] Last Admin: 10/05/17 09:13 Dose: 30 mg Lactobacillus Acidophilus (Bacid -) 1 tab PO DAILY [facility] Last Admin: 10/05/17 09:13 Dose: 1 tab Metoprolol Succinate (Toprol Xl -) 50 mg PO BID [facility] Last Admin: 10/05/17 10:59 Dose: 50 mg Morphine Sulfate (Ms Contin -) 90 mg PO TID [facility] Last Admin: 10/05/17 13:05 Dose: 90 mg Ondansetron HCl (Zofran Injection) 4 mg IVPUSH Q6H PRN PRN Reason: NAUSEA Last Admin: 10/04/17 21:00 Dose: 4 mg Oxycodone HCl (Roxicodone -) 10 mg PO Q4H PRN PRN Reason: PAIN Last Admin: 10/05/17 07:45 Dose: 10 mg Polyethylene Glycol (Miralax (For Daily Use) -) 17 gm PO BID PRN PRN Reason: CONSTIPATION Pregabalin (Lyrica -) 50 mg PO BID RADHA Last Admin: 10/05/17 09:13 Dose: 50 mg Temazepam (Restoril -) 30 mg PO HS [facility] Last Admin: 10/04/17 22:19 Dose: 30 mg - Objective Vital Signs: Vital Signs Temperature 98.5 F 10/05/17 14:33 Pulse Rate 60 10/05/17 14:33 Respiratory Rate 18 10/05/17 14:33 Blood Pressure 106/53 10/05/17 14:33 O2 Sat by Pulse Oximetry (%) 94 L 10/05/17 09:00 Constitutional: Yes: No Distress Neck: Yes: Supple Cardiovascular: Yes: Regular Rate and Rhythm Respiratory: Yes: Diminished (fina at bases) Gastrointestinal: Yes: Normal Bowel Sounds, Soft Genitourinary: Yes: WNL Extremities: Yes: WNL Integumentary: Yes: WNL Neurological: Yes: Alert, Oriented Labs: CBC, BMP 10/05/17 05:35 10/05/17 05:35 INR, PTT INR 1.04 (0.82-1.09) 10/04/17 12:31 Microbiology 10/04/17 19:50 Sputum - Expectorated Gram Stain - Final 10/04/17 12:34 Blood - Peripheral Venous Blood Culture - Preliminary NO GROWTH OBTAINED AFTER 24 HOURS, INCUBATION TO CONTINUE FOR 4 DAYS. 10/04/17 12:34 Blood - Peripheral Venous Blood Culture - Preliminary NO GROWTH OBTAINED AFTER 24 HOURS, INCUBATION TO CONTINUE FOR 4 DAYS. 10/04/17 19:50 Urine For Antigen Detection Legionella Antigen - Final 10/04/17 19:50 Urine For Antigen Detection Streptococcus pneumoniae Antigen (M - Final Sputum gram stain- moderate GPC in clusters, isolate pending - ....Imaging Chest X-ray: Report Reviewed Problem List - Problems (1) COPD (chronic obstructive pulmonary disease) Code(s): J44.9 - CHRONIC OBSTRUCTIVE PULMONARY DISEASE, UNSPECIFIED (2) Dyspnea Code(s): R06.00 - DYSPNEA, UNSPECIFIED (3) Orthopnea Code(s): R06.01 - ORTHOPNEA (4) Renal failure (ARF), acute on chronic Code(s): N17.9 - ACUTE KIDNEY FAILURE, UNSPECIFIED; N18.9 - CHRONIC KIDNEY DISEASE, UNSPECIFIED (5) Weakness Code(s): R53.1 - WEAKNESS (6) Acute on chronic systolic and diastolic heart failure, NYHA class 2 Code(s): I50.43 - ACUTE ON CHRONIC COMBINED SYSTOLIC AND DIASTOLIC HRT FAIL (7) CAD (coronary artery disease) Code(s): I25.10 - ATHSCL HEART DISEASE OF [place] CORONARY ARTERY W/O ANG PCTRS Qualifiers: (8) CKD (chronic kidney disease) Code(s): N18.9 - CHRONIC KIDNEY DISEASE, UNSPECIFIED Qualifiers: Chronic kidney disease stage: stage 2 (mild) Qualified Code(s): N18.2 - Chronic kidney disease, stage 2 (mild) (9) Cardiomyopathy Code(s): I42.9 - CARDIOMYOPATHY, UNSPECIFIED (10) Diabetes mellitus Code(s): E11.9 - TYPE 2 DIABETES MELLITUS WITHOUT COMPLICATIONS Qualifiers: Diabetes mellitus type: type 2 Diabetes mellitus complication status: with circulatory complication Diabetes mellitus complication detail: with peripheral angiopathy with gangrene Diabetes mellitus assisted insulin use: with 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 male with multiple medical problems admitted for shortness of breath and productive cough. Tmax 101.9F last night, wbc count lower today but remains elevated. Pneumonia/Sepsis - Zosyn IV, Vancomycin renally dosed empirically - sputum/blood cultures - continue monitor wbc, temps - monitor vitals closely
[2017-10-05] MEDS: TEMAZEPAM 15 MG CAPSULE PO SCH (21:14)
[2017-10-05] MEDS: ATORVASTATIN CA 80 MG TABLET (FP) PO SCH (21:14)
[2017-10-06] MEDS: PIPERACILLIN/TAZOB 2.25 GM 2.25 GM in DEXTROSE 5%-WATER - 50 ML IVPB SCH ×4 (01:00→17:13)
[2017-10-06] MEDS: ACETAMINOPHEN 325 MG TABLET (FP) PO PRN ×3 (01:43→21:50)
[2017-10-06] MEDS: oxyCODONE HCL 5 MG TABLET PO PRN ×3 (01:44→21:49)
[2017-10-06] MEDS ORDERED: PT OWN MED DRAWER 7, Y5N ONE ×4 (05:39→15:30)
[2017-10-06] MEDS: morphine SO4 SUSTAINED ACTING 30 MG TABLET.SA PO SCH ×3 (05:46→21:41)
[2017-10-06] MEDS: HEPARIN NA (PORCINE) 5,000 UNITS/ML 1ML VIAL SQ SCH ×3 (05:46→21:41)
[2017-10-06] MEDS: INSULIN SLIDING SCALE (NOVOLOG) 1 VIAL SQ SCH ×4 (06:02→21:27)
[2017-10-06] MEDS: SODIUM CHLORIDE 1,000 ML IV SCH ×2 (06:54→17:15)
[2017-10-06 07:39] LABS: EOSINOPHIL 3.8 % (0-4.5); MCH 27.8 pg (25.7-33.7); MEAN CELL VOLUME 89.6 fl (80-96); MEAN PLT VOLUME 8.8 fl (7.5-11.1); NEUTROPHILS 72.8 % (42.8-82.8); PLATELET COUNT 228 K/MM3 (134-434); RDW 22.7 % (11.9-15.9); WHITE BLOOD COUNT 12.9 K/mm3 (4.0-10.0)
[2017-10-06 08:02] LABS: ANION GAP 8 (8-16); CO2 20 mmol/L (21-32); CREATININE 2.4 mg/dL (0.7-1.3); GLUCOSE,RANDOM 130 mg/dL (74-106); MAGNESIUM 1.9 mg/dL (1.8-2.4); PHOSPHOROUS 3.7 mg/dL (2.5-4.9)
[2017-10-06] MEDS: LACTOBACILLUS ACIDOPHILUS 1 EACH TAB (FP) PO SCH (09:19)
[2017-10-06] MEDS: METOPROLOL SUCCINATE 50 MG TAB.SR.24H (FP) PO SCH ×2 (09:20→21:30)
[2017-10-06] MEDS: ISOSORBIDE MONONITRATE 30 MG TAB.SR.24H (FP) PO SCH (09:20)
[2017-10-06] MEDS: PREGABALIN 50 MG CAPSULE PO SCH ×2 (09:20→21:40)
[2017-10-06] MEDS: guaiFENesin 600 MG TABLET.ER (FP) PO SCH ×2 (09:20→21:40)
[2017-10-06] MEDS: CLOPIDOGREL BISULFATE 75 MG TABLET (FP) PO SCH (09:20)
[2017-10-06] MEDS: ASPIRIN COATED 81 MG TABLET.EC PO SCH (09:20)
[2017-10-06 11:34] LABS: ANISOCYTOSIS 1+; HYPOCHROMIA 0; MACROCYTOSIS 0; MICROCYTOSIS 1+; PLATELET ESTIMATE NORMAL; POLYCHROMASIA 0
[2017-10-06 11:38] LABS: POIKILOCYTOSIS 0
--- NOTE | 2017-10-06 13:18 | PN ---
Progress Note (short form) - Note Progress Note: Chief Complaint: n/v History of Present Illness: No cp, sob, palps, dizzy. Feels better today. Current Medications Acetaminophen (Tylenol -) 650 mg PO Q6H PRN PRN Reason: FEVER OR PAIN Last Admin: 10/06/17 09:29 Dose: 650 mg Albuterol/Ipratropium (Duoneb -) 1 amp NEB Q6H PRN PRN Reason: SHORTNESS OF BREATH Aspirin (Ecotrin -) 81 mg PO DAILY [facility] Last Admin: 10/06/17 09:20 Dose: 81 mg Atorvastatin Calcium (Lipitor -) 80 mg PO HS [facility] Last Admin: 10/05/17 21:14 Dose: 80 mg Clopidogrel Bisulfate (Plavix -) 75 mg PO DAILY [facility] Last Admin: 10/06/17 09:20 Dose: 75 mg Guaifenesin (Mucinex -) 600 mg PO BID [facility] Last Admin: 10/06/17 09:20 Dose: 600 mg Heparin Sodium (Porcine) (Heparin -) 5,000 unit SQ TID [facility] Last Admin: 10/06/17 05:46 Dose: 5,000 unit Sodium Chloride (Normal Saline -) 1,000 mls @ 75 mls/hr IV ASDIR [facility] Last Admin: 10/06/17 06:54 Dose: 75 mls/hr Piperacillin Sod/Tazobactam (Sod 2.25 gm/ Dextrose) 50 mls @ 100 mls/hr IVPB Q6H [facility] PRN Reason: Protocol Last Admin: 10/06/17 11:35 Dose: 100 mls/hr Insulin Aspart (Novolog Vial Sliding Scale -) 1 vial SQ ACHS [facility] PRN Reason: Protocol Last Admin: 10/06/17 11:34 Dose: Not Given Isosorbide Mononitrate (Imdur -) 30 mg PO DAILY [facility] Last Admin: 10/06/17 09:20 Dose: 30 mg Lactobacillus Acidophilus (Bacid -) 1 tab PO DAILY [facility] Last Admin: 10/06/17 09:19 Dose: 1 tab Metoprolol Succinate (Toprol Xl -) 50 mg PO BID [facility] Last Admin: 10/06/17 09:20 Dose: 50 mg Morphine Sulfate (Ms Contin -) 90 mg PO TID [facility] Last Admin: 10/06/17 05:46 Dose: 90 mg Ondansetron HCl (Zofran Injection) 4 mg IVPUSH Q6H PRN PRN Reason: NAUSEA Last Admin: 10/04/17 21:00 Dose: 4 mg Oxycodone HCl (Roxicodone -) 10 mg PO Q4H PRN PRN Reason: PAIN Last Admin: 10/06/17 09:30 Dose: 10 mg Polyethylene Glycol (Miralax (For Daily Use) -) 17 gm PO BID PRN PRN Reason: CONSTIPATION Pregabalin (Lyrica -) 50 mg PO BID [facility] Last Admin: 10/06/17 09:20 Dose: 50 mg Temazepam (Restoril -) 30 mg PO HS [facility] Last Admin: 10/05/17 21:14 Dose: 30 mg Vital Signs - 24 hr 10/05/17 10/05/17 10/05/17 14:33 18:00 21:00 Temperature 98.5 F 99.2 F Pulse Rate 60 61 Respiratory 18 18 18 Rate Blood Pressure 106/53 117/55 O2 Sat by Pulse 95 Oximetry (%) 10/05/17 10/06/17 10/06/17 22:00 02:00 06:00 Temperature 98.2 F 98.5 F 98.4 F Pulse Rate 58 L 57 L 47 L Respiratory 18 20 20 Rate Blood Pressure 136/56 133/59 129/55 O2 Sat by Pulse Oximetry (%) 10/06/17 10/06/17 09:00 10:00 Temperature 98.5 F Pulse Rate 55 L Respiratory 20 20 Rate Blood Pressure 153/79 O2 Sat by Pulse Oximetry (%) Intake & Output 10/04/17 10/05/17 10/06/17 10/07/17 07:59 07:59 07:59 07:59 Intake Total 1248 2275 Output Total 1200 950 Balance 48 1325 Weight 191 lb 160 lb nad no jvd rrr s1s2 no mrg bibasilar rales, nl eff aaox3 no le e/c/c abd nt nd pos bs no jaundice diaphoresis pos dp pt no carotid bruits CBC, BMP 10/06/17 06:30 10/06/17 06:30 Laboratory Tests 10/06/17 06:30 Magnesium 1.9 EKG 10/05: SR, mobitz 1, old IWMI, nonsp ST-Ts lateral leads--no change vs priors tele: sr, mobitz 1, no pathologic bradycardia ct chest: rul pna Echo 05/15: mod to sev decr LVEF; severe hypokinesis of all lindsey except basal segments. nl RV. mild MR/TR. no peric eff. Echo 01/2017: mild global HK, lvef 45-50, nl rv, nl rvsp, mild lae, mild tr Echo 12/2016: TDS; LVSF is "at least mildly reduced: RWM assessment tds; nl RV; nl LA; mild MR/TR; no veg seen (Git[place] review: EF mod-severely decr'd, ? global (cannot accurately assess for RWMAs)--suspect EF is 35-40%.) Echo 04/2015: mod global HK; RV tds; trace AI LHC 05/15: 70-80% mRCA (ISR), 70-80% RPDA (ISR); 70-80% mLAD; 80-90% pLCX (small vessel); 90-95% OM2 (large vessel); 80-90% prox Ramus (large vessel) ...nonobstructive dz of note [id number]% ostial RCA, 50-60% eccentric lesion OM1 (large vessel); EDP 30-->25 post-nitro EF 38% (diffuse WMAs) Syntax score 20 a/p: 67 yo CAD with reported "5 prior stents and MIs" last PCI in 2011, Ischemic CMY with systolic LV dysfunction, htn, hl, PAD bilateral LE with non-healing ulcer, CVA 10/2014 without residual deficits, DM, Peripheral Neuropathy, CKD, h/ o hyperkalemia, copd here with n/v and found to have pna. pna: -cont abx CAD: -s/p PCI ([facility]) to 100% occl RPDA in 2004 ([facility]) with patent prior RCA stents at that time, EF 50% then; -s/p anterior STEMI 2011 with [employer] LIBBY x 2 to mid LAD then ([facility]); residual dz then included 80% prox D1 (large vessel), 95% mD1; 70%mRCA (pre and post prior stents), 70% dCFX; (also 40% RPDA; 60% pCFX; 40% mCFX;) EF then 37% with AK of apex/AL lindsey and AK of IW; -s/p NSTEMI 05/15 in setting of sepsis/PNA possible trigger -extensive multivessel CAD at cath (as above)--pt offered cabg at [facility] but he declined, was discharged home on 05/28. Then pt reconsidered but discussed case with [facility] and they wanted him to have improved functional status prior to cabg as in his state of debilitation he will be higher risk for surgical complications/poor post op recovery. -on ASA and plavix from before (for recurrent CVAs) -on BB, high intensity statin , imdur -no signs acs here isch CMP/ chronic syst CHF: -moderately decr'd EF 05/15 -cont bb, hydralazine/nitrates. currently hydralazine on hold. 10/06 bp improving, if remains normal will add back hydralazine -currently vol depleted with brant so getting ivfs, monitor vol status HTN: -cont current meds. hydralazine as mentioned above. h/o CVA: -dx'd lacunar infarct 02/10 clinically then (slurred speech) -? acute CVA/TIA 11/13, seen by neuro then--ASA added to prior plavix at that time -same meds BRANT on CKD: - no ACEI for prior h/o BRANT on ramipril -cr freq fluctuates 1.5-2.9 on past admits here -currently with brant, getting ivfs, improving abnl ecg, mobitz I 2nd degree AVB, chronic: -seen on tele here on several occasions, no significant pauses, benign. HR currently running in the 50's. con't to monitor.
--- NOTE | 2017-10-06 13:32 | PN ---
Progress Note (short form) - Note Progress Note: Renal follow up for BRANT Pt seen and examined at the bedside awake and alert offers no acute complaints no sob, chest pain making urine Vital Signs Temperature 98.5 F 10/06/17 10:00 Pulse Rate 55 L 10/06/17 10:00 Respiratory Rate 20 10/06/17 10:00 Blood Pressure 153/79 10/06/17 10:00 O2 Sat by Pulse Oximetry (%) 95 10/05/17 21:00 Intake & Output 10/03/17 10/04/17 10/05/17 10/06/17 23:59 23:59 23:59 23:59 Intake Total 590 1518 1415 Output Total 850 1000 300 Balance -719 546 1394 Weight 86.636 kg 86.636 kg 72.575 kg NAD awake and alert RRR CTA (anterior) No LE edema CBC, BMP 10/06/17 06:30 10/06/17 06:30 Current Medications Acetaminophen (Tylenol -) 650 mg PO Q6H PRN PRN Reason: FEVER OR PAIN Last Admin: 10/06/17 09:29 Dose: 650 mg Albuterol/Ipratropium (Duoneb -) 1 amp NEB Q6H PRN PRN Reason: SHORTNESS OF BREATH Aspirin (Ecotrin -) 81 mg PO DAILY [facility] Last Admin: 10/06/17 09:20 Dose: 81 mg Atorvastatin Calcium (Lipitor -) 80 mg PO HS [facility] Last Admin: 10/05/17 21:14 Dose: 80 mg Clopidogrel Bisulfate (Plavix -) 75 mg PO DAILY [facility] Last Admin: 10/06/17 09:20 Dose: 75 mg Guaifenesin (Mucinex -) 600 mg PO BID [facility] Last Admin: 10/06/17 09:20 Dose: 600 mg Heparin Sodium (Porcine) (Heparin -) 5,000 unit SQ TID [facility] Last Admin: 10/06/17 05:46 Dose: 5,000 unit Sodium Chloride (Normal Saline -) 1,000 mls @ 75 mls/hr IV ASDIR [facility] Last Admin: 10/06/17 06:54 Dose: 75 mls/hr Piperacillin Sod/Tazobactam (Sod 2.25 gm/ Dextrose) 50 mls @ 100 mls/hr IVPB Q6H [facility] PRN Reason: Protocol Last Admin: 10/06/17 11:35 Dose: 100 mls/hr Insulin Aspart (Novolog Vial Sliding Scale -) 1 vial SQ ACHS [facility] PRN Reason: Protocol Last Admin: 10/06/17 11:34 Dose: Not Given Isosorbide Mononitrate (Imdur -) 30 mg PO DAILY [facility] Last Admin: 10/06/17 09:20 Dose: 30 mg Lactobacillus Acidophilus (Bacid -) 1 tab PO DAILY [facility] Last Admin: 10/06/17 09:19 Dose: 1 tab Metoprolol Succinate (Toprol Xl -) 50 mg PO BID [facility] Last Admin: 10/06/17 09:20 Dose: 50 mg Morphine Sulfate (Ms Contin -) 90 mg PO TID [facility] Last Admin: 10/06/17 05:46 Dose: 90 mg Ondansetron HCl (Zofran Injection) 4 mg IVPUSH Q6H PRN PRN Reason: NAUSEA Last Admin: 10/04/17 21:00 Dose: 4 mg Oxycodone HCl (Roxicodone -) 10 mg PO Q4H PRN PRN Reason: PAIN Last Admin: 10/06/17 09:30 Dose: 10 mg Polyethylene Glycol (Miralax (For Daily Use) -) 17 gm PO BID PRN PRN Reason: CONSTIPATION Pregabalin (Lyrica -) 50 mg PO BID [facility] Last Admin: 10/06/17 09:20 Dose: 50 mg Temazepam (Restoril -) 30 mg PO HS [facility] Last Admin: 10/05/17 21:14 Dose: 30 mg A/P 67 year old gentleman with PMhx of CKD/BRANT, DM type 2, COPD, Neuropathy, CVA, CAD, CHF who presented with weakness/fatigue and found to have PNA withi BRANT #Acute Kidney Injury on CKD secondary to renal hypoprofusion in setting of Sepsis/NSAID use Urine studies showed no proteinuria or sediment FeNa was 0.7% indicating preserved tubular function Renal function with gradual improvement pt is non-oliguric at the present time continue isotonic saline for 24 more hours, can d/c after that if pt is evolemic and able to tolerate oral intake #PNA/Sepsis continue Abx as per ID/PMD supportive care #Non-Anion gap metabolic acidosis continue sodium bicarb 650mg Daily #Anemia Trend CBC no acute indication for transfusion at this time Thank you Will follow Gerber Rodriguez DO
--- NOTE | 2017-10-06 13:34 | PN ---
Progress Note, Physician Chief Complaint: Mr Scott he feels much better. Still with productive cough but improving. No cp , sob, n/v. Tolerating diet without emesis. - Current Medication List Current Medications: Active Medications Acetaminophen (Tylenol -) 650 mg PO Q6H PRN PRN Reason: FEVER OR PAIN Last Admin: 10/06/17 09:29 Dose: 650 mg Albuterol/Ipratropium (Duoneb -) 1 amp NEB Q6H PRN PRN Reason: SHORTNESS OF BREATH Aspirin (Ecotrin -) 81 mg PO DAILY [facility] Last Admin: 10/06/17 09:20 Dose: 81 mg Atorvastatin Calcium (Lipitor -) 80 mg PO HS [facility] Last Admin: 10/05/17 21:14 Dose: 80 mg Clopidogrel Bisulfate (Plavix -) 75 mg PO DAILY [facility] Last Admin: 10/06/17 09:20 Dose: 75 mg Guaifenesin (Mucinex -) 600 mg PO BID [facility] Last Admin: 10/06/17 09:20 Dose: 600 mg Heparin Sodium (Porcine) (Heparin -) 5,000 unit SQ TID [facility] Last Admin: 10/06/17 05:46 Dose: 5,000 unit Sodium Chloride (Normal Saline -) 1,000 mls @ 75 mls/hr IV ASDIR [facility] Last Admin: 10/06/17 06:54 Dose: 75 mls/hr Piperacillin Sod/Tazobactam (Sod 2.25 gm/ Dextrose) 50 mls @ 100 mls/hr IVPB Q6H [facility] PRN Reason: Protocol Last Admin: 10/06/17 11:35 Dose: 100 mls/hr Insulin Aspart (Novolog Vial Sliding Scale -) 1 vial SQ ACHS [facility] PRN Reason: Protocol Last Admin: 10/06/17 11:34 Dose: Not Given Isosorbide Mononitrate (Imdur -) 30 mg PO DAILY [facility] Last Admin: 10/06/17 09:20 Dose: 30 mg Lactobacillus Acidophilus (Bacid -) 1 tab PO DAILY [facility] Last Admin: 10/06/17 09:19 Dose: 1 tab Metoprolol Succinate (Toprol Xl -) 50 mg PO BID [facility] Last Admin: 10/06/17 09:20 Dose: 50 mg Morphine Sulfate (Ms Contin -) 90 mg PO TID [facility] Last Admin: 10/06/17 05:46 Dose: 90 mg Ondansetron HCl (Zofran Injection) 4 mg IVPUSH Q6H PRN PRN Reason: NAUSEA Last Admin: 10/04/17 21:00 Dose: 4 mg Oxycodone HCl (Roxicodone -) 10 mg PO Q4H PRN PRN Reason: PAIN Last Admin: 10/06/17 09:30 Dose: 10 mg Polyethylene Glycol (Miralax (For Daily Use) -) 17 gm PO BID PRN PRN Reason: CONSTIPATION Pregabalin (Lyrica -) 50 mg PO BID [facility] Last Admin: 10/06/17 09:20 Dose: 50 mg Sodium Bicarbonate (Sodium Bicarbonate -) 650 mg PO DAILY [facility] Temazepam (Restoril -) 30 mg PO HS [facility] Last Admin: 10/05/17 21:14 Dose: 30 mg - Objective Vital Signs: Vital Signs Temperature 36.9 C 10/06/17 10:00 Pulse Rate 55 L 10/06/17 10:00 Respiratory Rate 20 10/06/17 10:00 Blood Pressure 153/79 10/06/17 10:00 O2 Sat by Pulse Oximetry (%) 95 10/05/17 21:00 Constitutional: Yes: Well Nourished, No Distress, Calm Cardiovascular: Yes: Regular Rate and Rhythm. No: Gallop, Murmur, Rub Respiratory: Yes: Regular, On Nasal O2, Rhonchi (much improved). No: CTA Bilaterally, Rales, Wheezes Gastrointestinal: Yes: Normal Bowel Sounds, Soft. No: Distention, Tenderness Extremities: Yes: WNL Edema: No Labs: CBC, BMP 10/06/17 06:30 10/06/17 06:30 INR, PTT INR 1.04 (0.82-1.09) 10/04/17 12:31 Problem List - Problems (1) Pneumonia Code(s): J18.9 - PNEUMONIA, UNSPECIFIED ORGANISM Qualifiers: Pneumonia type: due to unspecified organism Laterality: right Lung location: unspecified part of lung Qualified Code(s): J18.9 - Pneumonia, unspecified organism (2) Sepsis Code(s): A41.9 - SEPSIS, UNSPECIFIED ORGANISM (3) Renal failure (ARF), acute on chronic Code(s): N17.9 - ACUTE KIDNEY FAILURE, UNSPECIFIED; N18.9 - CHRONIC KIDNEY DISEASE, UNSPECIFIED (4) Metabolic acidosis Code(s): E87.2 - ACIDOSIS (5) COPD (chronic obstructive pulmonary disease) Code(s): J44.9 - CHRONIC OBSTRUCTIVE PULMONARY DISEASE, UNSPECIFIED (6) CAD (coronary artery disease) Code(s): I25.10 - ATHSCL HEART DISEASE OF [place] CORONARY ARTERY W/O ANG PCTRS Qualifiers: (7) Congestive heart failure (CHF) Code(s): I50.9 - HEART FAILURE, UNSPECIFIED Qualifiers: Congestive heart failure type: systolic Congestive heart failure chronicity : chronic Qualified Code(s): I50.22 - Chronic systolic (congestive) heart failure (8) Diabetes mellitus Code(s): E11.9 - TYPE 2 DIABETES MELLITUS WITHOUT COMPLICATIONS Qualifiers: Diabetes mellitus type: type 2 Diabetes mellitus complication status: with circulatory complication Diabetes mellitus complication detail: with peripheral angiopathy with gangrene Diabetes mellitus long-term insulin use: with long-term use Qualified Code(s): E11.52 - Type 2 diabetes mellitus with diabetic peripheral angiopathy with gangrene (9) Diabetic foot ulcer Code(s): E11.621 - TYPE 2 DIABETES MELLITUS WITH FOOT ULCER; L97.509 - NON- PRESSURE CHRONIC ULCER OTH PRT UNSP FOOT W UNSP SEVERITY (10) Hyperlipidemia Code(s): E78.5 - HYPERLIPIDEMIA, UNSPECIFIED (11) Hypertension Code(s): I10 - ESSENTIAL (PRIMARY) HYPERTENSION Assessment/Plan (1) Pneumonia Assessment/Plan: -patient continues to improve -continue vancomycin dosed by levels -continue zosyn -ID following and appreciate assistance Code(s): J18.9 - PNEUMONIA, UNSPECIFIED ORGANISM Qualifiers: Pneumonia type: due to unspecified organism Laterality: right Lung location: unspecified part of lung Qualified Code(s): J18.9 - Pneumonia, unspecified organism (2) Sepsis Assessment/Plan: -present but improving -continue antibiotics and IVF Code(s): A41.9 - SEPSIS, UNSPECIFIED ORGANISM (3) Renal failure (ARF), acute on chronic Assessment/Plan: -improving -continue IVF currently -monitor for fluid overload Code(s): N17.9 - ACUTE KIDNEY FAILURE, UNSPECIFIED; N18.9 - CHRONIC KIDNEY DISEASE, UNSPECIFIED (4) Metabolic acidosis Assessment/Plan: -appreciate nephrology assistance -oral bicarb replacement Code(s): E87.2 - ACIDOSIS (5) COPD (chronic obstructive pulmonary disease) Assessment/Plan: -with exacerbation from pneumonia -antibiotics as above -bronchodilators prn -no current need for steroids Code(s): J44.9 - CHRONIC OBSTRUCTIVE PULMONARY DISEASE, UNSPECIFIED (6) CAD (coronary artery disease) Assessment/Plan: -quiescent -continue home regimen Code(s): I25.10 - ATHSCL HEART DISEASE OF [place] CORONARY ARTERY W/O ANG PCTRS Qualifiers: (7) Congestive heart failure (CHF) Assessment/Plan: -not in exacerbation -will need hydration with close monitoring -cardiology following Code(s): I50.9 - HEART FAILURE, UNSPECIFIED Qualifiers: Congestive heart failure type: systolic Congestive heart failure chronicity : chronic Qualified Code(s): I50.22 - Chronic systolic (congestive) heart failure (8) Diabetes mellitus Assessment/Plan: -hold levemir, well controlled -continue diabetic diet and SSI Code(s): E11.9 - TYPE 2 DIABETES MELLITUS WITHOUT COMPLICATIONS Qualifiers: Diabetes mellitus type: type 2 Diabetes mellitus complication status: with circulatory complication Diabetes mellitus complication detail: with peripheral angiopathy with gangrene Diabetes mellitus long-term insulin use: with terminal gauger use Qualified Code(s): E11.52 - Type 2 diabetes mellitus with diabetic peripheral angiopathy with gangrene (9) Diabetic foot ulcer Assessment/Plan: -well controlled Code(s): E11.621 - TYPE 2 DIABETES MELLITUS WITH FOOT ULCER; L97.509 - NON- PRESSURE CHRONIC ULCER OTH PRT UNSP FOOT W UNSP SEVERITY (10) Hyperlipidemia Assessment/Plan: -continue statin Code(s): E78.5 - HYPERLIPIDEMIA, UNSPECIFIED (11) Hypertension Assessment/Plan: -continue toprol xl and imdur -holding hydralazine currently -if elevates, restart hydralazine Code(s): I10 - ESSENTIAL (PRIMARY) HYPERTENSION (12) Emesis -currently resolved -suspect has aspect of gastroparesis but if emesis resolved can be evaluated as an outpatient
[2017-10-06] MEDS: SODIUM BICARBONATE 650 MG TABLET PO SCH (13:55)
--- NOTE | 2017-10-06 15:07 | PN ---
Progress Note, Physician History of Present Illness: Pt is feeling better. He is less short of breath and coughing less. Denies fever or chills. - Current Medication List Current Medications: Active Medications Acetaminophen (Tylenol -) 650 mg PO Q6H PRN PRN Reason: FEVER OR PAIN Last Admin: 10/06/17 09:29 Dose: 650 mg Albuterol/Ipratropium (Duoneb -) 1 amp NEB Q6H PRN PRN Reason: SHORTNESS OF BREATH Aspirin (Ecotrin -) 81 mg PO DAILY [facility] Last Admin: 10/06/17 09:20 Dose: 81 mg Atorvastatin Calcium (Lipitor -) 80 mg PO HS [facility] Last Admin: 10/05/17 21:14 Dose: 80 mg Clopidogrel Bisulfate (Plavix -) 75 mg PO DAILY [facility] Last Admin: 10/06/17 09:20 Dose: 75 mg Guaifenesin (Mucinex -) 600 mg PO BID [facility] Last Admin: 10/06/17 09:20 Dose: 600 mg Heparin Sodium (Porcine) (Heparin -) 5,000 unit SQ TID [facility] Last Admin: 10/06/17 13:55 Dose: 5,000 unit Sodium Chloride (Normal Saline -) 1,000 mls @ 75 mls/hr IV ASDIR [facility] Last Admin: 10/06/17 06:54 Dose: 75 mls/hr Piperacillin Sod/Tazobactam (Sod 2.25 gm/ Dextrose) 50 mls @ 100 mls/hr IVPB Q6H [facility] PRN Reason: Protocol Last Admin: 10/06/17 11:35 Dose: 100 mls/hr Vancomycin HCl 1,000 mg/ (Dextrose) 250 mls @ 250 mls/hr IVPB ONCE ONE PRN Reason: Protocol Stop: 10/06/17 16:01 Insulin Aspart (Novolog Vial Sliding Scale -) 1 vial SQ ACHS [facility] PRN Reason: Protocol Last Admin: 10/06/17 11:34 Dose: Not Given Isosorbide Mononitrate (Imdur -) 30 mg PO DAILY [facility] Last Admin: 10/06/17 09:20 Dose: 30 mg Lactobacillus Acidophilus (Bacid -) 1 tab PO DAILY [facility] Last Admin: 10/06/17 09:19 Dose: 1 tab Metoprolol Succinate (Toprol Xl -) 50 mg PO BID [facility] Last Admin: 10/06/17 09:20 Dose: 50 mg Morphine Sulfate (Ms Contin -) 90 mg PO TID [facility] Last Admin: 10/06/17 13:55 Dose: 90 mg Ondansetron HCl (Zofran Injection) 4 mg IVPUSH Q6H PRN PRN Reason: NAUSEA Last Admin: 10/04/17 21:00 Dose: 4 mg Oxycodone HCl (Roxicodone -) 10 mg PO Q4H PRN PRN Reason: PAIN Last Admin: 10/06/17 09:30 Dose: 10 mg Polyethylene Glycol (Miralax (For Daily Use) -) 17 gm PO BID PRN PRN Reason: CONSTIPATION Pregabalin (Lyrica -) 50 mg PO BID [facility] Last Admin: 10/06/17 09:20 Dose: 50 mg Sodium Bicarbonate (Sodium Bicarbonate -) 650 mg PO DAILY [facility] Last Admin: 10/06/17 13:55 Dose: 650 mg Temazepam (Restoril -) 30 mg PO HS [facility] Last Admin: 10/05/17 21:14 Dose: 30 mg - Objective Vital Signs: Vital Signs Temperature 98.3 F 10/06/17 14:00 Pulse Rate 54 L 10/06/17 14:00 Respiratory Rate 20 10/06/17 14:00 Blood Pressure 140/63 10/06/17 14:00 O2 Sat by Pulse Oximetry (%) 95 10/05/17 21:00 Constitutional: Yes: No Distress, Calm Neck: Yes: Supple Cardiovascular: Yes: Regular Rate and Rhythm Respiratory: Yes: Diminished (b/l) Gastrointestinal: Yes: Normal Bowel Sounds, Soft Genitourinary: Yes: WNL Integumentary: Yes: WNL Neurological: Yes: Alert, Oriented Labs: CBC, BMP 10/06/17 06:30 10/06/17 06:30 INR, PTT INR 1.04 (0.82-1.09) 10/04/17 12:31 Microbiology 10/04/17 12:34 Blood - Peripheral Venous Blood Culture - Preliminary NO GROWTH OBTAINED AFTER 48 HOURS, INCUBATION TO CONTINUE FOR 3 DAYS. 10/04/17 12:34 Blood - Peripheral Venous Blood Culture - Preliminary NO GROWTH OBTAINED AFTER 48 HOURS, INCUBATION TO CONTINUE FOR 3 DAYS. 10/04/17 19:50 Sputum - Expectorated Gram Stain - Final 10/04/17 19:50 Sputum - Expectorated Sputum Culture - Preliminary Staphylococcus Latex Coag Pos 10/04/17 19:50 Urine For Antigen Detection Legionella Antigen - Final 10/04/17 19:50 Urine For Antigen Detection Streptococcus pneumoniae Antigen (M - Final Problem List - Problems (1) COPD (chronic obstructive pulmonary disease) Code(s): J44.9 - CHRONIC OBSTRUCTIVE PULMONARY DISEASE, UNSPECIFIED (2) Dyspnea Code(s): R06.00 - DYSPNEA, UNSPECIFIED (3) Orthopnea Code(s): R06.01 - ORTHOPNEA (4) Renal failure (ARF), acute on chronic Code(s): N17.9 - ACUTE KIDNEY FAILURE, UNSPECIFIED; N18.9 - CHRONIC KIDNEY DISEASE, UNSPECIFIED (5) Weakness Code(s): R53.1 - WEAKNESS (6) Acute on chronic systolic and diastolic heart failure, NYHA class 2 Code(s): I50.43 - ACUTE ON CHRONIC COMBINED SYSTOLIC AND DIASTOLIC HRT FAIL (7) CAD (coronary artery disease) Code(s): I25.10 - ATHSCL HEART DISEASE OF [place] CORONARY ARTERY W/O ANG PCTRS Qualifiers: (8) CKD (chronic kidney disease) Code(s): N18.9 - CHRONIC KIDNEY DISEASE, UNSPECIFIED Qualifiers: Chronic kidney disease stage: stage 2 (mild) Qualified Code(s): N18.2 - Chronic kidney disease, stage 2 (mild) (9) Cardiomyopathy Code(s): I42.9 - CARDIOMYOPATHY, UNSPECIFIED (10) Diabetes mellitus Code(s): E11.9 - TYPE 2 DIABETES MELLITUS WITHOUT COMPLICATIONS Qualifiers: Diabetes mellitus type: type 2 Diabetes mellitus complication status: with circulatory complication Diabetes mellitus complication detail: with peripheral angiopathy with gangrene Diabetes mellitus retirement insulin use: with intermediate frame tender use Qualified Code(s): E11.52 - Type 2 diabetes mellitus with diabetic peripheral angiopathy with gangrene (11) Leukocytosis Code(s): D72.829 - ELEVATED WHITE BLOOD CELL COUNT, UNSPECIFIED Qualifiers: Leukocytosis type: other Qualified Code(s): D72.828 - Other elevated white blood cell count (12) Pneumonia Code(s): J18.9 - PNEUMONIA, UNSPECIFIED ORGANISM Qualifiers: Pneumonia type: due to unspecified organism Laterality: right Lung location: unspecified part of lung Qualified Code(s): J18.9 - Pneumonia, unspecified organism Assessment/Plan 67 y.o. male with multiple medical problems admitted for shortness of breath and productive cough. Afebrile now with decrease in wbc. Pneumonia/Sepsis - fever/leukocytosis -resolving - coag + staph isolated in sputum, follow final results - cont. Zosyn for now - Vancomycin x 1 dose today, check Vancomycin random level tomorrow - continue monitor wbc, temps - monitor vitals closely
[2017-10-06] MEDS ORDERED: VANCOMYCIN 1,000 MG in DEXTROSE 5%-WATER - 250 ML IVPB ONE (16:00)
[2017-10-06] MEDS: TEMAZEPAM 15 MG CAPSULE PO SCH (21:40)
[2017-10-06] MEDS: ATORVASTATIN CA 80 MG TABLET (FP) PO SCH (21:41)
[2017-10-06] MEDS: hydrALAZINE HCL 10 MG TABLET PO SCH (23:17)
[2017-10-07] MEDS ORDERED: PT OWN MED DRAWER 7, Y5N ONE ×3 (00:29→11:59)
[2017-10-07] MEDS: PIPERACILLIN/TAZOB 2.25 GM 2.25 GM in DEXTROSE 5%-WATER - 50 ML IVPB SCH ×3 (01:04→12:04)
[2017-10-07] MEDS: INSULIN SLIDING SCALE (NOVOLOG) 1 VIAL SQ SCH ×4 (06:39→22:21)
[2017-10-07] MEDS: morphine SO4 SUSTAINED ACTING 30 MG TABLET.SA PO SCH ×3 (06:44→22:02)
[2017-10-07] MEDS: HEPARIN NA (PORCINE) 5,000 UNITS/ML 1ML VIAL SQ SCH ×3 (06:44→22:03)
[2017-10-07 07:37] LABS: MCH 28.3 pg (25.7-33.7); MEAN CELL VOLUME 88.2 fl (80-96); MEAN PLT VOLUME 8.6 fl (7.5-11.1); PLATELET COUNT 227 K/MM3 (134-434); RDW 22.1 % (11.9-15.9); WHITE BLOOD COUNT 10.7 K/mm3 (4.0-10.0)
[2017-10-07 08:12] LABS: ANION GAP 9 (8-16); CALCIUM 8.6 mg/dL (8.5-10.1); CO2 21 mmol/L (21-32); CREATININE 1.7 mg/dL (0.7-1.3); GLUCOSE,RANDOM 122 mg/dL (74-106); MAGNESIUM 1.8 mg/dL (1.8-2.4); PHOSPHOROUS 3.2 mg/dL (2.5-4.9)
[2017-10-07 09:34] LABS: ANISOCYTOSIS 2+; HYPOCHROMIA 1+; METAMYELOCYTE 1 % (0-2); MICROCYTOSIS 1+; POLYCHROMASIA 1+; TOTAL CELLS COUNTED 100
[2017-10-07 09:35] LABS: OVALOCYTE FEW; PLATELET COMMENTS NO CLUMPING NOTED; PLATELET ESTIMATE ADEQUATE
[2017-10-07] MEDS: ACETAMINOPHEN 325 MG TABLET (FP) PO PRN (09:43)
[2017-10-07] MEDS: oxyCODONE HCL 5 MG TABLET PO PRN ×2 (09:44→22:03)
[2017-10-07] MEDS: LACTOBACILLUS ACIDOPHILUS 1 EACH TAB (FP) PO SCH (09:45)
[2017-10-07] MEDS: PREGABALIN 50 MG CAPSULE PO SCH ×2 (09:45→22:02)
[2017-10-07] MEDS: ASPIRIN COATED 81 MG TABLET.EC PO SCH (09:45)
[2017-10-07] MEDS: guaiFENesin 600 MG TABLET.ER (FP) PO SCH ×2 (09:45→22:03)
[2017-10-07] MEDS: CLOPIDOGREL BISULFATE 75 MG TABLET (FP) PO SCH (09:46)
[2017-10-07] MEDS: ISOSORBIDE MONONITRATE 30 MG TAB.SR.24H (FP) PO SCH (09:46)
[2017-10-07] MEDS: hydrALAZINE HCL 10 MG TABLET PO SCH ×2 (09:46→22:03)
[2017-10-07] MEDS: SODIUM BICARBONATE 650 MG TABLET PO SCH (09:46)
[2017-10-07] MEDS: amLODIPine BESYLATE 5 MG TABLET (FP) PO SCH (09:46)
--- NOTE | 2017-10-07 10:41 | PN ---
Progress Note (short form) - Note Progress Note: Renal follow up for BRANT Pt seen and examined at the bedside no complaints denies any sob,chest pain, abd pain, N/V/D making urine apetite remains poor Vital Signs Temperature 97.5 F L 10/07/17 06:00 Pulse Rate 54 L 10/07/17 06:00 Respiratory Rate 18 10/07/17 06:00 Blood Pressure 145/64 10/07/17 06:00 O2 Sat by Pulse Oximetry (%) 95 10/06/17 21:00 Intake & Output 10/04/17 10/05/17 10/06/17 10/07/17 23:59 23:59 23:59 23:59 Intake Total 590 1518 1535 1000 Output Total 850 1000 1350 450 Balance -260 518 185 550 Weight 86.636 kg 86.636 kg 72.575 kg NAD awake and alert RRR CTA (anterior) No LE edema CBC, BMP 10/07/17 06:00 10/07/17 06:00 Current Medications Acetaminophen (Tylenol -) 650 mg PO Q6H PRN PRN Reason: FEVER OR PAIN Last Admin: 10/07/17 09:43 Dose: 650 mg Albuterol/Ipratropium (Duoneb -) 1 amp NEB Q6H PRN PRN Reason: SHORTNESS OF BREATH Amlodipine Besylate (Norvasc -) 5 mg PO DAILY [facility] Last Admin: 10/07/17 09:46 Dose: 5 mg Aspirin (Ecotrin -) 81 mg PO DAILY [facility] Last Admin: 10/07/17 09:45 Dose: 81 mg Atorvastatin Calcium (Lipitor -) 80 mg PO HS [facility] Last Admin: 10/06/17 21:41 Dose: 80 mg Clopidogrel Bisulfate (Plavix -) 75 mg PO DAILY [facility] Last Admin: 10/07/17 09:46 Dose: 75 mg Guaifenesin (Mucinex -) 600 mg PO BID [facility] Last Admin: 10/07/17 09:45 Dose: 600 mg Heparin Sodium (Porcine) (Heparin -) 5,000 unit SQ TID [facility] Last Admin: 10/07/17 06:44 Dose: 5,000 unit Hydralazine HCl (Apresoline -) 10 mg PO BID [facility] Last Admin: 10/07/17 09:46 Dose: 10 mg Piperacillin Sod/Tazobactam (Sod 2.25 gm/ Dextrose) 50 mls @ 100 mls/hr IVPB Q6H [facility] PRN Reason: Protocol Last Admin: 10/07/17 06:43 Dose: 100 mls/hr Insulin Aspart (Novolog Vial Sliding Scale -) 1 vial SQ ACHS [facility] PRN Reason: Protocol Last Admin: 10/07/17 06:39 Dose: Not Given Isosorbide Mononitrate (Imdur -) 30 mg PO DAILY [facility] Last Admin: 10/07/17 09:46 Dose: 30 mg Lactobacillus Acidophilus (Bacid -) 1 tab PO DAILY [facility] Last Admin: 10/07/17 09:45 Dose: 1 tab Metoprolol Succinate (Toprol Xl -) 50 mg PO BID [facility] Last Admin: 10/06/17 21:30 Dose: Not Given Morphine Sulfate (Ms Contin -) 90 mg PO TID [facility] Last Admin: 10/07/17 06:44 Dose: 90 mg Ondansetron HCl (Zofran Injection) 4 mg IVPUSH Q6H PRN PRN Reason: NAUSEA Last Admin: 10/04/17 21:00 Dose: 4 mg Oxycodone HCl (Roxicodone -) 10 mg PO Q4H PRN PRN Reason: PAIN Last Admin: 10/07/17 09:44 Dose: 10 mg Polyethylene Glycol (Miralax (For Daily Use) -) 17 gm PO BID PRN PRN Reason: CONSTIPATION Pregabalin (Lyrica -) 50 mg PO BID [facility] Last Admin: 10/07/17 09:45 Dose: 50 mg Sodium Bicarbonate (Sodium Bicarbonate -) 650 mg PO DAILY [facility] Last Admin: 10/07/17 09:46 Dose: 650 mg Temazepam (Restoril -) 30 mg PO HS [facility] Last Admin: 10/06/17 21:40 Dose: 30 mg A/P 67 year old gentleman with PMhx of CKD/BRANT, DM type 2, COPD, Neuropathy, CVA, CAD, CHF who presented with weakness/fatigue and found to have PNA withi BRANT #Acute Kidney Injury on CKD secondary to renal hypoprofusion in setting of Sepsis/NSAID use Renal function improving toward baseline good urine output can d/c IVF Trend BUN/Cr #PNA/Sepsis continue Abx as per ID/PMD supportive care #Non-Anion gap metabolic acidosis continue sodium bicarb 650mg Daily #Anemia Trend CBC no acute indication for transfusion at this time #Hypertension BP above goal Start amlodipine 5mg Daily Gerber Rodriguez DO
--- NOTE | 2017-10-07 11:05 | PN ---
Progress Note (short form) - Note Progress Note: Subjective: The patient was seen and examined at the bedside, he denies any nausea, vomiting, diarrhea, chest pain. He states he is having a cough. Current Medications Generic Name Dose Route Start Last Admin Trade Name Freq PRN Reason Stop Dose Admin Acetaminophen 650 mg 10/04/17 20:53 10/07/17 09:43 Tylenol - PO 650 mg Q6H PRN Administration FEVER OR PAIN Albuterol/Ipratropium 1 amp 10/04/17 16:32 Duoneb - NEB Q6H PRN SHORTNESS OF BREATH Amlodipine Besylate 5 mg 10/07/17 10:00 10/07/17 09:46 Norvasc - PO 5 mg DAILY [facility] Administration Aspirin 81 mg 10/05/17 10:00 10/07/17 09:45 Ecotrin - PO 81 mg DAILY [facility] Administration Atorvastatin Calcium 80 mg 10/04/17 22:00 10/06/17 21:41 Lipitor - PO 80 mg HS [facility] Administration Clopidogrel Bisulfate 75 mg 10/05/17 10:00 10/07/17 09:46 Plavix - PO 75 mg DAILY [facility] Administration Guaifenesin 600 mg 10/04/17 22:00 10/07/17 09:45 Mucinex - PO 600 mg BID [facility] Administration Heparin Sodium (Porcine) 5,000 unit 10/04/17 22:00 10/07/17 06:44 Heparin - SQ 5,000 unit TID [facility] Administration Hydralazine HCl 10 mg 10/06/17 22:30 10/07/17 09:46 Apresoline - PO 10 mg BID [facility] Administration Piperacillin Sod/Tazobactam 50 mls @ 100 mls/hr 10/05/17 06:00 10/07/17 06:43 Sod 2.25 gm/ Dextrose IVPB 100 mls/hr Q6H [facility] Administration Protocol Insulin Aspart 1 vial 10/04/17 22:00 10/07/17 06:39 Novolog Vial Sliding Scale - SQ Not Given ACHS [facility] Protocol Isosorbide Mononitrate 30 mg 10/05/17 10:00 10/07/17 09:46 Imdur - PO 30 mg DAILY [facility] Administration Lactobacillus Acidophilus 1 tab 10/05/17 10:00 10/07/17 09:45 Bacid - PO 1 tab DAILY [facility] Administration Metoprolol Succinate 50 mg 10/04/17 22:00 10/06/17 21:30 Toprol Xl - PO Not Given BID [facility] Morphine Sulfate 90 mg 10/04/17 22:00 10/07/17 06:44 Ms Contin - PO 90 mg TID [facility] Administration Ondansetron HCl 4 mg 10/04/17 16:26 10/04/17 21:00 Zofran Injection IVPUSH 4 mg Q6H PRN Administration NAUSEA Oxycodone HCl 10 mg 10/04/17 16:21 10/07/17 09:44 Roxicodone - PO 10 mg Q4H PRN Administration PAIN Polyethylene Glycol 17 gm 10/04/17 16:21 Miralax (For Daily Use) - PO BID PRN CONSTIPATION Pregabalin 50 mg 10/04/17 22:00 10/07/17 09:45 Lyrica - PO 50 mg BID [facility] Administration Sodium Bicarbonate 650 mg 10/06/17 13:45 10/07/17 09:46 Sodium Bicarbonate - PO 650 mg DAILY [facility] Administration Temazepam 30 mg 10/04/17 22:00 10/06/17 21:40 Restoril - PO 30 mg HS [facility] Administration Objective: Vital Signs Period Temp Pulse Resp BP Sys/Chandra Pulse Ox Last 24 Hr 97.5 F-98.7 F 51-68 16-20 140-167/62-70 95 Physical Exam: General: NAD, A&Ox3 Lungs: B/l rhonchi, +dry cough Heart: RRR, S1S2 Abd: Soft, non-tender, non-distended. Normoactive bowel sounds Ext: Warm, well-perfused. 2+ DP/PT bilaterally Neuro: CN 2-12 intact CBCD WBC 10.7 K/mm3 (4.0-10.0) H 10/07/17 06:00 RBC 3.59 M/mm3 (4.00-5.60) L 10/07/17 06:00 Hgb 10.2 GM/dL (11.7-16.9) L 10/07/17 06:00 Hct 31.7 % (35.4-49) L 10/07/17 06:00 MCV 88.2 fl (80-96) 10/07/17 06:00 MCHC 32.0 g/dl (32.0-35.9) 10/07/17 06:00 RDW 22.1 % (11.9-15.9) H 10/07/17 06:00 Plt Count 227 K/MM3 (134-434) 10/07/17 06:00 MPV 8.6 fl (7.5-11.1) 10/07/17 06:00 CMP Sodium 144 mmol/L (136-145) 10/07/17 06:00 Potassium 4.0 mmol/L (3.5-5.1) 10/07/17 06:00 Chloride 114 mmol/L (98-107) H 10/07/17 06:00 Carbon Dioxide 21 mmol/L (21-32) 10/07/17 06:00 Anion Gap 9 (8-16) 10/07/17 06:00 BUN 46 mg/dL (7-18) H D 10/07/17 06:00 Creatinine 1.7 mg/dL (0.7-1.3) H D 10/07/17 06:00 Creat Clearance w eGFR 20.85 (>60) 10/04/17 12:31 Random Glucose 122 mg/dL (74-106) H 10/07/17 06:00 Calcium 8.6 mg/dL (8.5-10.1) 10/07/17 06:00 Total Bilirubin 0.3 mg/dL (0.2-1.0) D 10/04/17 12:31 AST < 3 U/L (15-37) L D 10/04/17 12:31 ALT 12 U/L (12-78) 10/04/17 12:31 Alkaline Phosphatase 67 U/L (45-117) D 10/04/17 12:31 Total Protein 6.3 g/dl (6.4-8.2) L 10/04/17 12:31 Albumin 3.2 g/dl (3.4-5.0) L D 10/04/17 12:31 CARDIAC ENZYMES Creatine Kinase 21 IU/L (39-308) L 10/04/17 12:31 Troponin I 0.02 ng/ml (0.00-0.05) 10/04/17 12:31 Microbiology 10/04/17 19:50 Sputum - Expectorated Gram Stain - Final 10/04/17 19:50 Sputum - Expectorated Sputum Culture - Final Mr S Aureus 10/04/17 12:34 Blood - Peripheral Venous Blood Culture - Preliminary NO GROWTH OBTAINED AFTER 48 HOURS, INCUBATION TO CONTINUE FOR 3 DAYS. 10/04/17 12:34 Blood - Peripheral Venous Blood Culture - Preliminary NO GROWTH OBTAINED AFTER 48 HOURS, INCUBATION TO CONTINUE FOR 3 DAYS. 10/04/17 19:50 Urine For Antigen Detection Legionella Antigen - Final 10/04/17 19:50 Urine For Antigen Detection Streptococcus pneumoniae Antigen (M - Final Assessment: This is a 67 year old male with PMHx of CVA (no residual affects), CHF, HTN, hyperlipidemia, COPD, renal insufficiency, DM, who presented to the ED with nausea, vomiting. Plan: 1) ID: Sepsis 2/2 Pneumonia - MRSA in sputum - WBC trending down - Afebrile - Zosyn discontinued today - Continue Vancomycin, dose per level - Cultures as above - Appreciate ID consult 2) Pulmonary: Acute COPD exacerbation - Likely exacerbated by pneumonia - Continue Duonebs - Continue to monitor off steroids 3) Cardiology: Chronic systolic heart failure - Continue Bblocker - Continue Hydralazine - Continue Nitrates CAD - Continue ASA - Continue Lipitor - Continue Plavix - Appreciate cardiology consult HTN - Continue Norvasc 4) : BRANT on CKD - Cr continues to improving - IV fluids discontinued today - Continue to monitor - Appreciate nephrology consult 5) Endocrine: DM - BGM ACHS - ISS ACHS - Diabetic diet 6) F/E/N: - Monitor electrolytes - Diabetic diet 7) Prophylaxis: - Heparin 5,000u sq tid 8) Dispo: - Requires continued inpatient care CODE STATUS: FULL CODE Visit type - Emergency Visit Emergency Visit: Yes ED Registration Date: 10/04/17 Care time: The patient presented to the Emergency Department on the above date and was hospitalized for further evaluation of their emergent condition. - New Patient This patient is new to me today: Yes Date on this admission: 10/07/17 - Critical Care Critical Care patient: No
[2017-10-07] MEDS: METOPROLOL SUCCINATE 50 MG TAB.SR.24H (FP) PO SCH ×2 (12:18→22:03)
--- NOTE | 2017-10-07 15:48 | PN ---
Progress Note, Physician History of Present Illness: Pt feeling better. No current SOB, less cough. No specific complaints. - Current Medication List Current Medications: Active Medications Acetaminophen (Tylenol -) 650 mg PO Q6H PRN PRN Reason: FEVER OR PAIN Last Admin: 10/07/17 09:43 Dose: 650 mg Albuterol/Ipratropium (Duoneb -) 1 amp NEB Q6H PRN PRN Reason: SHORTNESS OF BREATH Amlodipine Besylate (Norvasc -) 5 mg PO DAILY [facility] Last Admin: 10/07/17 09:46 Dose: 5 mg Aspirin (Ecotrin -) 81 mg PO DAILY [facility] Last Admin: 10/07/17 09:45 Dose: 81 mg Atorvastatin Calcium (Lipitor -) 80 mg PO HS [facility] Last Admin: 10/06/17 21:41 Dose: 80 mg Clopidogrel Bisulfate (Plavix -) 75 mg PO DAILY [facility] Last Admin: 10/07/17 09:46 Dose: 75 mg Guaifenesin (Mucinex -) 600 mg PO BID [facility] Last Admin: 10/07/17 09:45 Dose: 600 mg Heparin Sodium (Porcine) (Heparin -) 5,000 unit SQ TID [facility] Last Admin: 10/07/17 06:44 Dose: 5,000 unit Hydralazine HCl (Apresoline -) 10 mg PO BID [facility] Last Admin: 10/07/17 09:46 Dose: 10 mg Piperacillin Sod/Tazobactam (Sod 2.25 gm/ Dextrose) 50 mls @ 100 mls/hr IVPB Q6H [facility] PRN Reason: Protocol Last Admin: 10/07/17 12:04 Dose: 100 mls/hr Insulin Aspart (Novolog Vial Sliding Scale -) 1 vial SQ ACHS [facility] PRN Reason: Protocol Last Admin: 10/07/17 12:01 Dose: Not Given Isosorbide Mononitrate (Imdur -) 30 mg PO DAILY [facility] Last Admin: 10/07/17 09:46 Dose: 30 mg Lactobacillus Acidophilus (Bacid -) 1 tab PO DAILY [facility] Last Admin: 10/07/17 09:45 Dose: 1 tab Metoprolol Succinate (Toprol Xl -) 50 mg PO BID [facility] Last Admin: 10/07/17 12:18 Dose: Not Given Morphine Sulfate (Ms Contin -) 90 mg PO TID [facility] Last Admin: 10/07/17 06:44 Dose: 90 mg Ondansetron HCl (Zofran Injection) 4 mg IVPUSH Q6H PRN PRN Reason: NAUSEA Last Admin: 10/04/17 21:00 Dose: 4 mg Oxycodone HCl (Roxicodone -) 10 mg PO Q4H PRN PRN Reason: PAIN Last Admin: 10/07/17 09:44 Dose: 10 mg Polyethylene Glycol (Miralax (For Daily Use) -) 17 gm PO BID PRN PRN Reason: CONSTIPATION Pregabalin (Lyrica -) 50 mg PO BID [facility] Last Admin: 10/07/17 09:45 Dose: 50 mg Sodium Bicarbonate (Sodium Bicarbonate -) 650 mg PO DAILY [facility] Last Admin: 10/07/17 09:46 Dose: 650 mg Temazepam (Restoril -) 30 mg PO HS [facility] Last Admin: 10/06/17 21:40 Dose: 30 mg - Objective Vital Signs: Vital Signs Temperature 97.4 F L 10/07/17 14:26 Pulse Rate 60 10/07/17 14:26 Respiratory Rate 16 10/07/17 14:26 Blood Pressure 141/59 10/07/17 14:26 O2 Sat by Pulse Oximetry (%) 95 10/06/17 21:00 Constitutional: Yes: No Distress, Calm Cardiovascular: Yes: Regular Rate and Rhythm Respiratory: Yes: Diminished (no rhonchi/wheeze) Gastrointestinal: Yes: Normal Bowel Sounds, Soft Neurological: Yes: Alert, Oriented Labs: CBC, BMP 10/07/17 06:00 10/07/17 06:00 INR, PTT INR 1.04 (0.82-1.09) 10/04/17 12:31 Sputum Culture : MRSA Problem List - Problems (1) COPD (chronic obstructive pulmonary disease) Code(s): J44.9 - CHRONIC OBSTRUCTIVE PULMONARY DISEASE, UNSPECIFIED (2) Dyspnea Code(s): R06.00 - DYSPNEA, UNSPECIFIED (3) Orthopnea Code(s): R06.01 - ORTHOPNEA (4) Renal failure (ARF), acute on chronic Code(s): N17.9 - ACUTE KIDNEY FAILURE, UNSPECIFIED; N18.9 - CHRONIC KIDNEY DISEASE, UNSPECIFIED (5) Weakness Code(s): R53.1 - WEAKNESS (6) Acute on chronic systolic and diastolic heart failure, NYHA class 2 Code(s): I50.43 - ACUTE ON CHRONIC COMBINED SYSTOLIC AND DIASTOLIC HRT FAIL (7) CAD (coronary artery disease) Code(s): I25.10 - ATHSCL HEART DISEASE OF [place] CORONARY ARTERY W/O ANG PCTRS Qualifiers: (8) CKD (chronic kidney disease) Code(s): N18.9 - CHRONIC KIDNEY DISEASE, UNSPECIFIED Qualifiers: Chronic kidney disease stage: stage 2 (mild) Qualified Code(s): N18.2 - Chronic kidney disease, stage 2 (mild) (9) Cardiomyopathy Code(s): I42.9 - CARDIOMYOPATHY, UNSPECIFIED (10) Diabetes mellitus Code(s): E11.9 - TYPE 2 DIABETES MELLITUS WITHOUT COMPLICATIONS Qualifiers: Diabetes mellitus type: type 2 Diabetes mellitus complication status: with circulatory complication Diabetes mellitus complication detail: with peripheral angiopathy with gangrene 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 male with multiple medical problems admitted for shortness of breath and productive cough MRSA Pneumonia, s/p Sepsis -afebrile, no leukocytosis - d/c Zosyn - f/u Vancomycin level today, will give dose if level subtherapeutic - monitor vitals closely
--- NOTE | 2017-10-07 18:22 | PN ---
Progress Note (short form) - Note Progress Note: Chief Complaint: n/v History of Present Illness: No cp, sob, palps, dizzy. Feels better today. toprol held for bradycardia. Current Medications Acetaminophen (Tylenol -) 650 mg PO Q6H PRN PRN Reason: FEVER OR PAIN Last Admin: 10/07/17 09:43 Dose: 650 mg Albuterol/Ipratropium (Duoneb -) 1 amp NEB Q6H PRN PRN Reason: SHORTNESS OF BREATH Amlodipine Besylate (Norvasc -) 5 mg PO DAILY [facility] Last Admin: 10/07/17 09:46 Dose: 5 mg Aspirin (Ecotrin -) 81 mg PO DAILY [facility] Last Admin: 10/07/17 09:45 Dose: 81 mg Atorvastatin Calcium (Lipitor -) 80 mg PO HS [facility] Last Admin: 10/06/17 21:41 Dose: 80 mg Clopidogrel Bisulfate (Plavix -) 75 mg PO DAILY [facility] Last Admin: 10/07/17 09:46 Dose: 75 mg Guaifenesin (Mucinex -) 600 mg PO BID [facility] Last Admin: 10/07/17 09:45 Dose: 600 mg Heparin Sodium (Porcine) (Heparin -) 5,000 unit SQ TID [facility] Last Admin: 10/07/17 16:37 Dose: Not Given Hydralazine HCl (Apresoline -) 10 mg PO BID [facility] Last Admin: 10/07/17 09:46 Dose: 10 mg Insulin Aspart (Novolog Vial Sliding Scale -) 1 vial SQ ACHS [facility] PRN Reason: Protocol Last Admin: 10/07/17 17:31 Dose: Not Given Isosorbide Mononitrate (Imdur -) 30 mg PO DAILY [facility] Last Admin: 10/07/17 09:46 Dose: 30 mg Lactobacillus Acidophilus (Bacid -) 1 tab PO DAILY [facility] Last Admin: 10/07/17 09:45 Dose: 1 tab Metoprolol Succinate (Toprol Xl -) 50 mg PO BID [facility] Last Admin: 10/07/17 12:18 Dose: Not Given Morphine Sulfate (Ms Contin -) 90 mg PO TID [facility] Last Admin: 10/07/17 16:37 Dose: Not Given Ondansetron HCl (Zofran Injection) 4 mg IVPUSH Q6H PRN PRN Reason: NAUSEA Last Admin: 10/04/17 21:00 Dose: 4 mg Oxycodone HCl (Roxicodone -) 10 mg PO Q4H PRN PRN Reason: PAIN Last Admin: 10/07/17 09:44 Dose: 10 mg Polyethylene Glycol (Miralax (For Daily Use) -) 17 gm PO BID PRN PRN Reason: CONSTIPATION Pregabalin (Lyrica -) 50 mg PO BID [facility] Last Admin: 10/07/17 09:45 Dose: 50 mg Sodium Bicarbonate (Sodium Bicarbonate -) 650 mg PO DAILY [facility] Last Admin: 10/07/17 09:46 Dose: 650 mg Temazepam (Restoril -) 30 mg PO HS [facility] Last Admin: 10/06/17 21:40 Dose: 30 mg Vital Signs - 24 hr 10/06/17 10/07/17 10/07/17 21:00 02:00 06:00 Temperature 98.7 F 98.7 F 97.5 F L Pulse Rate 51 L 54 L 54 L Respiratory 18 18 18 Rate Blood Pressure 154/62 141/69 145/64 O2 Sat by Pulse 95 Oximetry (%) 10/07/17 10/07/17 10:00 14:26 Temperature 98.2 F 97.4 F L Pulse Rate 68 60 Respiratory 16 16 Rate Blood Pressure 167/68 141/59 O2 Sat by Pulse Oximetry (%) Intake & Output 10/05/17 10/06/17 10/07/17 10/08/17 07:59 07:59 07:59 07:59 Intake Total 1248 2275 1120 740 Output Total 1299 980 8277 350 Balance 48 1325 -380 390 Weight 191 lb 160 lb nad no jvd rrr s1s2 no mrg bibasilar rales, nl eff aaox3 no le e/c/c abd nt nd pos bs no jaundice diaphoresis pos dp pt no carotid bruits CBC, BMP 10/07/17 06:00 10/07/17 06:00 EKG 10/05: SR, mobitz 1, old IWMI, nonsp ST-Ts lateral leads--no change vs priors tele: sr/sb, frequent mobitz 1, no pathologic bradycardia ct chest: rul pna Echo 05/15: mod to sev decr LVEF; severe hypokinesis of all lindsey except basal segments. nl RV. mild MR/TR. no peric eff. Echo 01/2017: mild global HK, lvef 45-50, nl rv, nl rvsp, mild lae, mild tr Echo 12/2016: TDS; LVSF is "at least mildly reduced: RWM assessment tds; nl RV; nl LA; mild MR/TR; no veg seen ([place] review: EF mod-severely decr'd, ? global (cannot accurately assess for RWMAs)--suspect EF is 35-40%.) Echo 04/2015: mod global HK; RV tds; trace AI [facility] 05/15: 70-80% mRCA (ISR), 70-80% RPDA (ISR); 70-80% mLAD; 80-90% pLCX (small vessel); 90-95% OM2 (large vessel); 80-90% prox Ramus (large vessel) ...nonobstructive dz of note -44% ostial RCA, 50-60% eccentric lesion OM1 (large vessel); EDP 30-->25 post-nitro EF 38% (diffuse WMAs) Syntax score 20 a/p: 67 yo CAD with reported "5 prior stents and MIs" last PCI in 2011, Ischemic CMY with systolic LV dysfunction, htn, hl, PAD bilateral LE with non-healing ulcer, CVA 10/2014 without residual deficits, DM, Peripheral Neuropathy, CKD, h/ o hyperkalemia, copd here with n/v and found to have pna. pna: -cont abx CAD: -s/p PCI ([facility]) to 100% occl RPDA in 2004 ([facility]) with patent prior RCA stents at that time, EF 50% then; -s/p anterior STEMI 2011 with [place] [facility]BY x 2 to mid LAD then ([facility]); residual dz then included 80% prox D1 (large vessel), 95% mD1; 70%mRCA (pre and post prior stents), 70% dCFX; (also 40% RPDA; 60% pCFX; 40% mCFX;) EF then 37% with AK of apex/AL lindsey and AK of IW; -s/p NSTEMI 05/15 in setting of sepsis/PNA possible trigger -extensive multivessel CAD at cath (as above)--pt offered cabg at [place] but he declined, was discharged home on 05/28. Then pt reconsidered but discussed case with [facility] and they wanted him to have improved functional status prior to cabg as in his state of debilitation he will be higher risk for surgical complications/poor post op recovery. -on ASA and plavix from before (for recurrent CVAs) -on BB, high intensity statin , imdur -no signs acs here isch CMP/ chronic syst CHF: -moderately decr'd EF 05/15 -cont bb, hydralazine/nitrates. currently hydralazine on hold. 10/06 bp improving, if remains normal will add back hydralazine -s/p ivfs. remains euvolemic, monitor vol status HTN: -cont current meds. BB change as mentioned below. h/o CVA: -dx'd lacunar infarct 02/10 clinically then (slurred speech) -? acute CVA/TIA 11/13, seen by neuro then--ASA added to prior plavix at that time -same meds BRANT on CKD: - no ACEI for prior h/o BRANT on ramipril -cr freq fluctuates 1.5-2.9 on past admits here -brant improving s/p ivfs, improving abnl ecg, mobitz I 2nd degree AVB, chronic: -seen on tele here on several occasions, no significant pauses, benign. HR currently running in the 50's. Will change metoprolol to coreg to decrease frequency of episodes and avoid the need to hold bb.
[2017-10-07] MEDS: TEMAZEPAM 15 MG CAPSULE PO SCH (22:02)
[2017-10-07] MEDS: ATORVASTATIN CA 80 MG TABLET (FP) PO SCH (22:03)
[2017-10-08] MEDS: morphine SO4 SUSTAINED ACTING 30 MG TABLET.SA PO SCH ×3 (05:22→21:42)
[2017-10-08] MEDS: HEPARIN NA (PORCINE) 5,000 UNITS/ML 1ML VIAL SQ SCH ×3 (05:22→21:41)
[2017-10-08] MEDS: INSULIN SLIDING SCALE (NOVOLOG) 1 VIAL SQ SCH ×4 (06:52→21:44)
[2017-10-08 07:22] LABS: MCH 27.9 pg (25.7-33.7); MCHC 31.7 g/dl (32.0-35.9); MEAN CELL VOLUME 87.8 fl (80-96); MEAN PLT VOLUME 8.6 fl (7.5-11.1); PLATELET COUNT 236 K/MM3 (134-434); RDW 21.9 % (11.9-15.9); WHITE BLOOD COUNT 11.4 K/mm3 (4.0-10.0)
[2017-10-08] MEDS: oxyCODONE HCL 5 MG TABLET PO PRN ×3 (07:56→19:54)
--- NOTE | 2017-10-08 08:33 | PN ---
Progress Note, Physician Chief Complaint: PNA History of Present Illness: denies sob. also denies cp, palpit, syncope - Current Medication List Current Medications: Active Medications Acetaminophen (Tylenol -) 650 mg PO Q6H PRN PRN Reason: FEVER OR PAIN Last Admin: 10/07/17 09:43 Dose: 650 mg Albuterol/Ipratropium (Duoneb -) 1 amp NEB Q6H PRN PRN Reason: SHORTNESS OF BREATH Amlodipine Besylate (Norvasc -) 5 mg PO DAILY [facility] Last Admin: 10/07/17 09:46 Dose: 5 mg Aspirin (Ecotrin -) 81 mg PO DAILY [facility] Last Admin: 10/07/17 09:45 Dose: 81 mg Atorvastatin Calcium (Lipitor -) 80 mg PO HS [facility] Last Admin: 10/07/17 22:03 Dose: 80 mg Carvedilol (Coreg -) 6.25 mg PO BID [facility] Clopidogrel Bisulfate (Plavix -) 75 mg PO DAILY [facility] Last Admin: 10/07/17 09:46 Dose: 75 mg Guaifenesin (Mucinex -) 600 mg PO BID [facility] Last Admin: 10/07/17 22:03 Dose: 600 mg Heparin Sodium (Porcine) (Heparin -) 5,000 unit SQ TID [facility] Last Admin: 10/08/17 05:22 Dose: 5,000 unit Hydralazine HCl (Apresoline -) 10 mg PO BID [facility] Last Admin: 10/07/17 22:03 Dose: 10 mg Insulin Aspart (Novolog Vial Sliding Scale -) 1 vial SQ ACHS [facility] PRN Reason: Protocol Last Admin: 10/08/17 06:52 Dose: Not Given Isosorbide Mononitrate (Imdur -) 30 mg PO DAILY [facility] Last Admin: 10/07/17 09:46 Dose: 30 mg Lactobacillus Acidophilus (Bacid -) 1 tab PO DAILY [facility] Last Admin: 10/07/17 09:45 Dose: 1 tab Morphine Sulfate (Ms Contin -) 90 mg PO TID [facility] Last Admin: 10/08/17 05:22 Dose: 90 mg Ondansetron HCl (Zofran Injection) 4 mg IVPUSH Q6H PRN PRN Reason: NAUSEA Last Admin: 10/04/17 21:00 Dose: 4 mg Oxycodone HCl (Roxicodone -) 10 mg PO Q4H PRN PRN Reason: PAIN Last Admin: 10/08/17 07:56 Dose: 10 mg Polyethylene Glycol (Miralax (For Daily Use) -) 17 gm PO BID PRN PRN Reason: CONSTIPATION Pregabalin (Lyrica -) 50 mg PO BID [facility] Last Admin: 10/07/17 22:02 Dose: 50 mg Sodium Bicarbonate (Sodium Bicarbonate -) 650 mg PO DAILY [facility] Last Admin: 10/07/17 09:46 Dose: 650 mg Temazepam (Restoril -) 30 mg PO HS [facility] Last Admin: 10/07/17 22:02 Dose: 30 mg - Objective Vital Signs: Vital Signs Temperature 98.9 F 10/08/17 06:00 Pulse Rate 51 L 10/08/17 06:00 Respiratory Rate 20 10/08/17 06:00 Blood Pressure 164/72 10/08/17 06:00 O2 Sat by Pulse Oximetry (%) 95 10/07/17 20:03 Constitutional: Yes: Well Nourished, No Distress, Calm Cardiovascular: Yes: Regular Rate and Rhythm, S1, S2. No: JVD, Gallop, Murmur Respiratory: Yes: Regular, Diminished (R base), Rales (R base). No: Accessory Muscle Use, Wheezes Extremities: No: Cold Edema: No Neurological: Yes: Alert, Oriented Psychiatric: No: Agitated Labs: CBC, BMP 10/08/17 06:00 INR, PTT INR 1.04 (0.82-1.09) 10/04/17 12:31 - ....Imaging EKG: Other (NSR; 4:24am: sinus arrhythmia--mobitz II block (dropped beat), non- conducted APCs) Assessment/Plan Echo 05/15: mod to sev decr LVEF; severe hypokinesis of all lindsey except basal segments. nl RV. mild MR/TR. no peric eff. Echo 12/2016: TDS; LVSF is "at least mildly reduced: RWM assessment tds; nl RV; nl LA; mild MR/TR; no veg seen (Gitig review: EF mod-severely decr'd, ? global (cannot accurately assess for RWMAs)--suspect EF is 35-40%.) [facility] 05/15: 70-80% mRCA (ISR), 70-80% RPDA (ISR); 70-80% mLAD; 80-90% pLCX (small vessel); 90-95% OM2 (large vessel); 80-90% prox Ramus (large vessel) ...nonobstructive dz of note [id number]% ostial RCA, 50-60% eccentric lesion OM1 (large vessel); EDP 30-->25 post-nitro EF 38% (diffuse WMAs) Syntax score 20 a/p: 67 yo CAD with reported "5 prior stents and MIs" last PCI in 2011, Ischemic CMY with systolic LV dysfunction, htn, hl, PAD bilateral LE with non-healing ulcer, CVA 10/2014 without residual deficits, DM, Peripheral Neuropathy, CKD, h/ o hyperkalemia, copd here with n/v and found to have pna. pna: -cont abx per pmd CAD: -s/p PCI (LIBBY) to 100% occl RPDA in 2004 ([facility]) with patent prior RCA stents at that time, EF 50% then; -s/p anterior STEMI 2011 with [place] LIBBY x 2 to mid LAD then ([facility]); residual dz then included 80% prox D1 (large vessel), 95% mD1; 70%mRCA (pre and post prior stents), 70% dCFX; (also 40% RPDA; 60% pCFX; 40% mCFX;) EF then 37% with AK of apex/AL lindsey and AK of IW; -s/p NSTEMI 05/15 in setting of sepsis/PNA possible trigger -extensive multivessel CAD at cath (as above)--pt offered cabg at [facility] but he declined, was discharged home on 05/28. Then pt reconsidered but [facility] they wanted him to have improved functional status prior to cabg as in his state of debilitation he will be higher risk for surgical complications/poor post op recovery. -he needs outpt cardio followup to monitor his functional status and re-discuss timing of cabg with [place] -on ASA and plavix from before (for recurrent CVAs) -on BB, high intensity statin , imdur -no signs acs here isch CMP/ chronic syst CHF: -moderately decr'd EF 05/15 -cont bb, hydralazine/nitrates. currently hydralazine on hold. 10/06 bp improving, if remains normal will add back hydralazine -s/p ivfs. remains euvolemic, monitor vol status Mobitz II 2nd degree AVB: -occurring in setting of high vagal tone early am hours with evidence of ongoing sinus arrhythmia at that time -no indication of pathological conduction system dz--hence benefits of BB >> risks--same meds -cont tele while here HTN: -cont current meds. BB change as mentioned below. h/o CVA: -dx'd lacunar infarct 02/10 clinically then (slurred speech) -? acute CVA/TIA 11/13, seen by neuro then--ASA added to prior plavix at that time -same meds BRANT on CKD: - no ACEI for prior h/o BRANT on ramipril -cr freq fluctuates 1.5-2.9 on past admits here -brant improving s/p ivfs, improving abnl ecg, mobitz I 2nd degree AVB, chronic: -seen on tele here on several occasions, no significant pauses, benign. HR currently running in the 50's. Will change metoprolol to coreg to decrease frequency of episodes and avoid the need to hold bb.
[2017-10-08 09:07] LABS: ALBUMIN 2.8 g/dl (3.4-5.0); ALK PHOS 65 U/L (45-117); ANION GAP 7 (8-16); BILIRUBIN,TOTAL 0.5 mg/dL (0.2-1.0); CALCIUM 8.3 mg/dL (8.5-10.1); CO2 25 mmol/L (21-32); CREATININE 1.4 mg/dL (0.7-1.3); GLUCOSE,RANDOM 109 mg/dL (74-106); SGOT/AST 5 U/L (15-37); SGPT/ALT 11 U/L (12-78); TOT PROT 5.8 g/dl (6.4-8.2)
[2017-10-08] MEDS: ISOSORBIDE MONONITRATE 30 MG TAB.SR.24H (FP) PO SCH (09:28)
[2017-10-08] MEDS: LACTOBACILLUS ACIDOPHILUS 1 EACH TAB (FP) PO SCH (09:28)
[2017-10-08] MEDS: ASPIRIN COATED 81 MG TABLET.EC PO SCH (09:28)
[2017-10-08] MEDS: PREGABALIN 50 MG CAPSULE PO SCH ×2 (09:28→21:42)
[2017-10-08] MEDS: SODIUM BICARBONATE 650 MG TABLET PO SCH (09:29)
[2017-10-08] MEDS: guaiFENesin 600 MG TABLET.ER (FP) PO SCH ×2 (09:29→21:43)
[2017-10-08] MEDS: CARVEDILOL 6.25 MG TABLET (FP) PO SCH ×2 (09:29→21:49)
[2017-10-08] MEDS: CLOPIDOGREL BISULFATE 75 MG TABLET (FP) PO SCH (09:29)
[2017-10-08] MEDS: ACETAMINOPHEN 325 MG TABLET (FP) PO PRN ×3 (09:33→19:55)
[2017-10-08] MEDS: hydrALAZINE HCL 10 MG TABLET PO SCH ×2 (09:33→21:43)
[2017-10-08] MEDS: amLODIPine BESYLATE 5 MG TABLET (FP) PO SCH (09:34)
--- NOTE | 2017-10-08 12:30 | PN ---
Progress Note (short form) - Note Progress Note: continues to have cough but no longer productive. 1 episode of loose stool this AM. no assoc abdominal pain. dneies CP, SOB, fever, chills, N/V/C/D Current Medications Generic Name Dose Route Start Last Admin Trade Name Freq PRN Reason Stop Dose Admin Acetaminophen 650 mg 10/04/17 20:53 10/08/17 09:33 Tylenol - PO 650 mg Q6H PRN Administration FEVER OR PAIN Albuterol/Ipratropium 1 amp 10/04/17 16:32 Duoneb - NEB Q6H PRN SHORTNESS OF BREATH Amlodipine Besylate 5 mg 10/07/17 10:00 10/08/17 09:34 Norvasc - PO 5 mg DAILY [facility] Administration Aspirin 81 mg 10/05/17 10:00 10/08/17 09:28 Ecotrin - PO 81 mg DAILY [facility] Administration Atorvastatin Calcium 80 mg 10/04/17 22:00 10/07/17 22:03 Lipitor - PO 80 mg HS [facility] Administration Carvedilol 6.25 mg 10/08/17 10:00 10/08/17 09:29 Coreg - PO 6.25 mg BID [facility] Administration Clopidogrel Bisulfate 75 mg 10/05/17 10:00 10/08/17 09:29 Plavix - PO 75 mg DAILY [facility] Administration Guaifenesin 600 mg 10/04/17 22:00 10/08/17 09:29 Mucinex - PO 600 mg BID [facility] Administration Heparin Sodium (Porcine) 5,000 unit 10/04/17 22:00 10/08/17 05:22 Heparin - SQ 5,000 unit TID [facility] Administration Hydralazine HCl 10 mg 10/06/17 22:30 10/08/17 09:33 Apresoline - PO 10 mg BID [facility] Administration Insulin Aspart 1 vial 10/04/17 22:00 10/08/17 11:43 Novolog Vial Sliding Scale - SQ Not Given ACHS [facility] Protocol Isosorbide Mononitrate 30 mg 10/05/17 10:00 10/08/17 09:28 Imdur - PO 30 mg DAILY [facility] Administration Lactobacillus Acidophilus 1 tab 10/05/17 10:00 10/08/17 09:28 Bacid - PO 1 tab DAILY [facility] Administration Morphine Sulfate 90 mg 10/04/17 22:00 10/08/17 05:22 Ms Contin - PO 90 mg TID [facility] Administration Ondansetron HCl 4 mg 10/04/17 16:26 10/04/17 21:00 Zofran Injection IVPUSH 4 mg Q6H PRN Administration NAUSEA Oxycodone HCl 10 mg 10/04/17 16:21 10/08/17 07:56 Roxicodone - PO 10 mg Q4H PRN Administration PAIN Polyethylene Glycol 17 gm 10/04/17 16:21 Miralax (For Daily Use) - PO BID PRN CONSTIPATION Pregabalin 50 mg 10/04/17 22:00 10/08/17 09:28 Lyrica - PO 50 mg BID [facility] Administration Sodium Bicarbonate 650 mg 10/06/17 13:45 10/08/17 09:29 Sodium Bicarbonate - PO 650 mg DAILY [facility] Administration Temazepam 30 mg 10/04/17 22:00 10/07/17 22:02 Restoril - PO 30 mg HS [facility] Administration Last Vital Signs Temp Pulse Resp BP Pulse Ox 97.1 F L 62 20 162/68 95 10/08/17 09:34 10/08/17 09:34 10/08/17 09:34 10/08/17 09:34 10/07/17 20:03 General NAD CV S1 S2+ Lungs coarse crackles L base no wheezing ABdomen soft NT/ND Extremities no pedal edema CBCD WBC 11.4 K/mm3 (4.0-10.0) H 10/08/17 06:00 RBC 3.71 M/mm3 (4.00-5.60) L 10/08/17 06:00 Hgb 10.4 GM/dL (11.7-16.9) L 10/08/17 06:00 Hct 32.6 % (35.4-49) L 10/08/17 06:00 MCV 87.8 fl (80-96) 10/08/17 06:00 MCHC 31.7 g/dl (32.0-35.9) L 10/08/17 06:00 RDW 21.9 % (11.9-15.9) H 10/08/17 06:00 Plt Count 236 K/MM3 (134-434) 10/08/17 06:00 MPV 8.6 fl (7.5-11.1) 10/08/17 06:00 CMP Sodium 143 mmol/L (136-145) 10/08/17 06:00 Potassium 3.7 mmol/L (3.5-5.1) 10/08/17 06:00 Chloride 111 mmol/L (98-107) H 10/08/17 06:00 Carbon Dioxide 25 mmol/L (21-32) 10/08/17 06:00 Anion Gap 7 (8-16) L 10/08/17 06:00 BUN 29 mg/dL (7-18) H D 10/08/17 06:00 Creatinine 1.4 mg/dL (0.7-1.3) H 10/08/17 06:00 Creat Clearance w eGFR 50.25 (>60) 10/08/17 06:00 Calcium 8.3 mg/dL (8.5-10.1) L 10/08/17 06:00 Total Bilirubin 0.5 mg/dL (0.2-1.0) D 10/08/17 06:00 AST 5 U/L (15-37) L D 10/08/17 06:00 ALT 11 U/L (12-78) L 10/08/17 06:00 Alkaline Phosphatase 65 U/L (45-117) 10/08/17 06:00 Total Protein 5.8 g/dl (6.4-8.2) L 10/08/17 06:00 Albumin 2.8 g/dl (3.4-5.0) L 10/08/17 06:00 A/P 67yo M with PMH CVA (no residual affects), CHF, HTN, hyperlipidemia, COPD, renal insufficiency, DM, who presented to the ED with nausea, vomiting. 1. Sepsis due to MRSA PNA- clinically improved. afebrile. Lekocytosis stable. Vanco level subtherapeutic yesterday, did not receive dose. will give Vanco 1g now and repeat level for tomorrow. zosyn d/c yesterday. ID on board. to determine abx course 2. Loose BM- 1 episode. will monitor. hold stool softeners. start bacid 3. HTN- above goal. started on norvasc yesterday. will increase to 10mg. 4. NAG acidosis- resolved. bicarb 25. will d/c renal about d/c sodium bicarb 5. Acute on CKD- now at baseline. cont to renal dose medication. off IVF. avoid nephrotoxic agents. renal on board 6. Mobitz II- periods of bradycardia. switched to coreg yesterday. overall improved. cont cardiac monitoring 7. CAD- no signs of ACS. pt has refused cardiac cath. on asa/plavix/betablocker 8. DM- controlled 9. COPD on home O2 (3L NC)- saturating 96% on 1.LNC. no signs of acute exacerbation. off steroids 10. Dyslipidemia- on statin 11. DVT ppx- hep sq Visit type - Emergency Visit Emergency Visit: Yes ED Registration Date: 10/04/17 Care time: The patient presented to the Emergency Department on the above date and was hospitalized for further evaluation of their emergent condition. - New Patient This patient is new to me today: Yes Date on this admission: 10/08/17 - Critical Care Critical Care patient: No - Discharge Referral Referred to [facility] Med P.C.: No
[2017-10-08] MEDS ORDERED: amLODIPine BESYLATE 5 MG TABLET (FP) PO ONE (12:41)
[2017-10-08] MEDS ORDERED: VANCOMYCIN 1,000 MG in DEXTROSE 5%-WATER - 250 ML IVPB ONE (13:30)
[2017-10-08] MEDS: TEMAZEPAM 15 MG CAPSULE PO SCH (21:42)
[2017-10-08] MEDS: ATORVASTATIN CA 80 MG TABLET (FP) PO SCH (21:43)
[2017-10-09] MEDS: ACETAMINOPHEN 325 MG TABLET (FP) PO PRN ×3 (01:15→13:10)
[2017-10-09] MEDS: oxyCODONE HCL 5 MG TABLET PO PRN ×3 (01:15→10:55)
[2017-10-09] MEDS: morphine SO4 SUSTAINED ACTING 30 MG TABLET.SA PO SCH ×2 (06:01→13:09)
[2017-10-09] MEDS: HEPARIN NA (PORCINE) 5,000 UNITS/ML 1ML VIAL SQ SCH ×2 (06:01→13:11)
[2017-10-09] MEDS: INSULIN SLIDING SCALE (NOVOLOG) 1 VIAL SQ SCH ×2 (06:02→10:55)
[2017-10-09 07:25] LABS: MCH 28.2 pg (25.7-33.7); MCHC 32.2 g/dl (32.0-35.9); MEAN CELL VOLUME 87.7 fl (80-96); MEAN PLT VOLUME 8.9 fl (7.5-11.1); PLATELET COUNT 233 K/MM3 (134-434); RDW 21.3 % (11.9-15.9); WHITE BLOOD COUNT 10.7 K/mm3 (4.0-10.0)
[2017-10-09 07:35] VITALS: TEMP 98.2
[2017-10-09 08:13] LABS: ANION GAP 7 (8-16); CALCIUM 8.6 mg/dL (8.5-10.1); CO2 26 mmol/L (21-32); CREATININE 1.3 mg/dL (0.7-1.3); GLUCOSE,RANDOM 118 mg/dL (74-106)
[2017-10-09] MEDS ORDERED: PT OWN MED DRAWER 7, Y5N ONE (09:34)
--- NOTE | 2017-10-09 09:40 | PN ---
Progress Note, Physician Chief Complaint: pna History of Present Illness: denies sob, orthopnea, cp, leg swelling, dizzy (woke up after 6am today) ex cigs - Current Medication List Current Medications: Active Medications Acetaminophen (Tylenol -) 650 mg PO Q6H PRN PRN Reason: FEVER OR PAIN Last Admin: 10/09/17 06:55 Dose: 650 mg Albuterol/Ipratropium (Duoneb -) 1 amp NEB Q6H PRN PRN Reason: SHORTNESS OF BREATH Amlodipine Besylate (Norvasc -) 5 mg PO DAILY [facility] Last Admin: 10/08/17 09:34 Dose: 5 mg Aspirin (Ecotrin -) 81 mg PO DAILY [facility] Last Admin: 10/08/17 09:28 Dose: 81 mg Atorvastatin Calcium (Lipitor -) 80 mg PO HS [facility] Last Admin: 10/08/17 21:43 Dose: 80 mg Carvedilol (Coreg -) 6.25 mg PO BID [facility] Last Admin: 10/08/17 21:49 Dose: Not Given Clopidogrel Bisulfate (Plavix -) 75 mg PO DAILY [facility] Last Admin: 10/08/17 09:29 Dose: 75 mg Guaifenesin (Mucinex -) 600 mg PO BID [facility] Last Admin: 10/08/17 21:43 Dose: 600 mg Heparin Sodium (Porcine) (Heparin -) 5,000 unit SQ TID [facility] Last Admin: 10/09/17 06:01 Dose: 5,000 unit Hydralazine HCl (Apresoline -) 10 mg PO BID [facility] Last Admin: 10/08/17 21:43 Dose: 10 mg Insulin Aspart (Novolog Vial Sliding Scale -) 1 vial SQ ACHS [facility] PRN Reason: Protocol Last Admin: 10/09/17 06:02 Dose: Not Given Isosorbide Mononitrate (Imdur -) 30 mg PO DAILY [facility] Last Admin: 10/08/17 09:28 Dose: 30 mg Lactobacillus Acidophilus (Bacid -) 1 tab PO DAILY [facility] Last Admin: 10/08/17 09:28 Dose: 1 tab Morphine Sulfate (Ms Contin -) 90 mg PO TID [facility] Last Admin: 10/09/17 06:01 Dose: 90 mg Ondansetron HCl (Zofran Injection) 4 mg IVPUSH Q6H PRN PRN Reason: NAUSEA Last Admin: 10/04/17 21:00 Dose: 4 mg Oxycodone HCl (Roxicodone -) 10 mg PO Q4H PRN PRN Reason: PAIN Last Admin: 10/09/17 06:55 Dose: 10 mg Polyethylene Glycol (Miralax (For Daily Use) -) 17 gm PO BID PRN PRN Reason: CONSTIPATION Pregabalin (Lyrica -) 50 mg PO BID [facility] Last Admin: 10/08/17 21:42 Dose: 50 mg Sodium Bicarbonate (Sodium Bicarbonate -) 650 mg PO DAILY [facility] Last Admin: 10/08/17 09:29 Dose: 650 mg Temazepam (Restoril -) 30 mg PO HS [facility] Last Admin: 10/08/17 21:42 Dose: 30 mg - Objective Vital Signs: Vital Signs Temperature 98.2 F 10/09/17 06:00 Pulse Rate 51 L 10/09/17 06:00 Respiratory Rate 20 10/09/17 06:00 Blood Pressure 134/68 10/09/17 06:00 O2 Sat by Pulse Oximetry (%) 95 10/08/17 21:00 Constitutional: Yes: No Distress, Calm Eyes: No: Sclera Icterus HENT: No: Nasal Congestion Cardiovascular: Yes: Regular Rate and Rhythm, S1, S2, Other (PMI non diplaced). No: JVD, Gallop, Murmur Respiratory: Yes: CTA Bilaterally. No: Accessory Muscle Use, Rales, Wheezes Gastrointestinal: Yes: Normal Bowel Sounds, Soft. No: Tenderness Musculoskeletal: Yes: Other (No kyphosis) Extremities: No: Cold Edema: No Integumentary: No: Jaundice Neurological: Yes: Alert, Oriented (x3) Psychiatric: No: Agitated Labs: CBC, BMP 10/09/17 05:35 10/09/17 05:35 INR, PTT INR 1.04 (0.82-1.09) 10/04/17 12:31 - ....Imaging EKG: Other (tele: NSR with sinus arrhythmia overnight/early am hours (up to 5: 30 am), with episodes of marked sinus nicholas, dropped P waves, ventricular escapes) Assessment/Plan Echo 05/15: mod to sev decr LVEF; severe hypokinesis of all lindsey except basal segments. nl RV. mild MR/TR. no peric eff. Echo 12/2016: TDS; LVSF is "at least mildly reduced: RWM assessment tds; nl RV; nl LA; mild MR/TR; no veg seen (Gitig review: EF mod-severely decr'd, ? global (cannot accurately assess for RWMAs)--suspect EF is 35-40%.) [facility] 05/15: 70-80% mRCA (ISR), 70-80% RPDA (ISR); 70-80% mLAD; 80-90% pLCX (small vessel); 90-95% OM2 (large vessel); 80-90% prox Ramus (large vessel) ...nonobstructive dz of note [id number]% ostial RCA, 50-60% eccentric lesion OM1 (large vessel); EDP 30-->25 post-nitro EF 38% (diffuse WMAs) Syntax score 20 a/p: 67 yo CAD with reported "5 prior stents and MIs" last PCI in 2011, Ischemic CMY with systolic LV dysfunction, htn, hl, PAD bilateral LE with non-healing ulcer, CVA 10/2014 without residual deficits, DM, Peripheral Neuropathy, CKD, h/ o hyperkalemia, copd here with n/v and found to have pna. pna: -cont abx per pmd CAD: -s/p PCI (LIBBY) to 100% occl RPDA in 2004 ([facility]) with patent prior RCA stents at that time, EF 50% then; -s/p anterior STEMI 2011 with [place] LIBBY x 2 to mid LAD then ([place]); residual dz then included 80% prox D1 (large vessel), 95% mD1; 70%mRCA (pre and post prior stents), 70% dCFX; (also 40% RPDA; 60% pCFX; 40% mCFX;) EF then 37% with AK of apex/AL lindsey and AK of IW; -s/p NSTEMI 05/15 in setting of sepsis/PNA possible trigger -extensive multivessel CAD at cath (as above)--pt offered cabg at [place] but he declined, was discharged home on 05/28. Then pt reconsidered but discussed case with [facility] and they wanted him to have improved functional status prior to cabg as in his state of debilitation he will be higher risk for surgical complications/poor post op recovery. -on ASA and plavix from before (for recurrent CVAs) -on BB, high intensity statin , imdur -no signs acs here isch CMP/ chronic syst CHF: -moderately decr'd EF 05/15 -cont hydralazine/nitrates. no wendy-i given prior h/o BRANT related to WENDY use -pt with episodes of 2nd degree AVB (? all mobitz 1 vs some mobitz 2) in setting of sleep with evidence of high vagal tone (sinus arrhythmia at time of these events)--this is expected to be completely benign with no adverse prognosis associated, as it is physiologic effects of high vagal tone. -will not plan to alter BB regimen based on this finding (will d/w EP today to confirm their agreement). -metoprolol changed to carvedilol here--ok (possible improved syst chf benefits of carvedilol as well) -clinically euvolemic -pt advised he must make f/u appt with dr collazo to monitor for chf. will defer discussion of ICD (if EF qualifies him) to dr zay Rizo II 2nd degree AVB: -occurring in setting of high vagal tone early am hours with evidence of ongoing sinus arrhythmia at that time -no indication of pathological conduction system dz--hence benefits of BB >> risks--same meds -cont tele while here HTN: -cont current meds. BB change as mentioned below. h/o CVA: -dx'd lacunar infarct 02/10 clinically then (slurred speech) -? acute CVA/TIA 11/13, seen by neuro then--ASA added to prior plavix at that time -same meds BRANT on CKD: -cr freq fluctuates 1.5-2.9 on past admits here -renal fxn improved here s/p IVF OK FOR DISCHARGE FROM [facility] P.O.V.
[2017-10-09] MEDS: CLOPIDOGREL BISULFATE 75 MG TABLET (FP) PO SCH (09:41)
[2017-10-09] MEDS: amLODIPine BESYLATE 5 MG TABLET (FP) PO SCH (09:41)
[2017-10-09] MEDS: LACTOBACILLUS ACIDOPHILUS 1 EACH TAB (FP) PO SCH (09:41)
[2017-10-09] MEDS: PREGABALIN 50 MG CAPSULE PO SCH (09:41)
[2017-10-09] MEDS: hydrALAZINE HCL 10 MG TABLET PO SCH (09:41)
[2017-10-09] MEDS: ISOSORBIDE MONONITRATE 30 MG TAB.SR.24H (FP) PO SCH (09:41)
[2017-10-09] MEDS: ASPIRIN COATED 81 MG TABLET.EC PO SCH (09:41)
[2017-10-09] MEDS: SODIUM BICARBONATE 650 MG TABLET PO SCH (09:41)
[2017-10-09 10:13] LABS: ANISOCYTOSIS 1+; HYPOCHROMIA 0; MACROCYTOSIS 0; METAMYELOCYTE 3 % (0-2); MICROCYTOSIS 0; MYELOCYTE 0 % (0-2); PLATELET ESTIMATE NORMAL; POIKILOCYTOSIS 0; POLYCHROMASIA 0; REACTIVE LYMPHOCYTES 6 % (0-80)
[2017-10-09] MEDS: CARVEDILOL 6.25 MG TABLET (FP) PO SCH (10:13)
[2017-10-09] MEDS: guaiFENesin 600 MG TABLET.ER (FP) PO SCH (10:13)
[2017-10-09 11:36] LABS: TOTAL CELLS COUNTED 98
[2017-10-09 11:44] VITALS: BP 149/76; PULSE 52
--- NOTE | 2017-10-09 15:03 | PN ---
Progress Note, Physician History of Present Illness: Pt states he feels "great". Denies shortness of breath, cough, chest pain, fever or chills. - Current Medication List Current Medications: Active Medications Acetaminophen (Tylenol -) 650 mg PO Q6H PRN PRN Reason: FEVER OR PAIN Last Admin: 10/09/17 13:10 Dose: 650 mg Albuterol/Ipratropium (Duoneb -) 1 amp NEB Q6H PRN PRN Reason: SHORTNESS OF BREATH Amlodipine Besylate (Norvasc -) 5 mg PO DAILY [facility] Last Admin: 10/09/17 09:41 Dose: 5 mg Aspirin (Ecotrin -) 81 mg PO DAILY [facility] Last Admin: 10/09/17 09:41 Dose: 81 mg Atorvastatin Calcium (Lipitor -) 80 mg PO HS [facility] Last Admin: 10/08/17 21:43 Dose: 80 mg Carvedilol (Coreg -) 6.25 mg PO BID [facility] Last Admin: 10/09/17 10:13 Dose: 6.25 mg Clopidogrel Bisulfate (Plavix -) 75 mg PO DAILY [facility] Last Admin: 10/09/17 09:41 Dose: 75 mg Guaifenesin (Mucinex -) 600 mg PO BID [facility] Last Admin: 10/09/17 10:13 Dose: 600 mg Heparin Sodium (Porcine) (Heparin -) 5,000 unit SQ TID [facility] Last Admin: 10/09/17 13:11 Dose: 5,000 unit Hydralazine HCl (Apresoline -) 10 mg PO BID [facility] Last Admin: 10/09/17 09:41 Dose: 10 mg Insulin Aspart (Novolog Vial Sliding Scale -) 1 vial SQ ACHS [facility] PRN Reason: Protocol Last Admin: 10/09/17 10:55 Dose: Not Given Isosorbide Mononitrate (Imdur -) 30 mg PO DAILY [facility] Last Admin: 10/09/17 09:41 Dose: 30 mg Lactobacillus Acidophilus (Bacid -) 1 tab PO DAILY [facility] Last Admin: 10/09/17 09:41 Dose: 1 tab Morphine Sulfate (Ms Contin -) 90 mg PO TID [facility] Last Admin: 10/09/17 13:09 Dose: 90 mg Ondansetron HCl (Zofran Injection) 4 mg IVPUSH Q6H PRN PRN Reason: NAUSEA Last Admin: 10/04/17 21:00 Dose: 4 mg Polyethylene Glycol (Miralax (For Daily Use) -) 17 gm PO BID PRN PRN Reason: CONSTIPATION Pregabalin (Lyrica -) 50 mg PO BID [facility] Last Admin: 10/09/17 09:41 Dose: 50 mg Sodium Bicarbonate (Sodium Bicarbonate -) 650 mg PO DAILY [facility] Last Admin: 10/09/17 09:41 Dose: 650 mg Temazepam (Restoril -) 30 mg PO HS [facility] Last Admin: 10/08/17 21:42 Dose: 30 mg - Objective Vital Signs: Vital Signs Temperature 98.2 F 10/09/17 10:00 Pulse Rate 52 L 10/09/17 10:00 Respiratory Rate 20 10/09/17 10:00 Blood Pressure 149/76 10/09/17 10:00 O2 Sat by Pulse Oximetry (%) 93 L 10/09/17 09:00 Constitutional: Yes: No Distress, Calm Cardiovascular: Yes: Regular Rate and Rhythm Respiratory: Yes: CTA Bilaterally Gastrointestinal: Yes: Normal Bowel Sounds, Soft Genitourinary: Yes: WNL Extremities: Yes: WNL Integumentary: Yes: WNL Neurological: Yes: Alert, Oriented Labs: CBC, BMP 10/09/17 05:35 10/09/17 05:35 INR, PTT INR 1.04 (0.82-1.09) 10/04/17 12:31 Problem List - Problems (1) COPD (chronic obstructive pulmonary disease) Code(s): J44.9 - CHRONIC OBSTRUCTIVE PULMONARY DISEASE, UNSPECIFIED (2) Dyspnea Code(s): R06.00 - DYSPNEA, UNSPECIFIED (3) Orthopnea Code(s): R06.01 - ORTHOPNEA (4) Renal failure (ARF), acute on chronic Code(s): N17.9 - ACUTE KIDNEY FAILURE, UNSPECIFIED; N18.9 - CHRONIC KIDNEY DISEASE, UNSPECIFIED (5) Weakness Code(s): R53.1 - WEAKNESS (6) Acute on chronic systolic and diastolic heart failure, NYHA class 2 Code(s): I50.43 - ACUTE ON CHRONIC COMBINED SYSTOLIC AND DIASTOLIC HRT FAIL (7) CAD (coronary artery disease) Code(s): I25.10 - ATHSCL HEART DISEASE OF [place] CORONARY ARTERY W/O ANG PCTRS Qualifiers: (8) CKD (chronic kidney disease) Code(s): N18.9 - CHRONIC KIDNEY DISEASE, UNSPECIFIED Qualifiers: Chronic kidney disease stage: stage 2 (mild) Qualified Code(s): N18.2 - Chronic kidney disease, stage 2 (mild) (9) Cardiomyopathy Code(s): I42.9 - CARDIOMYOPATHY, UNSPECIFIED (10) Diabetes mellitus Code(s): E11.9 - TYPE 2 DIABETES MELLITUS WITHOUT COMPLICATIONS Qualifiers: Diabetes mellitus type: type 2 Diabetes mellitus complication status: with circulatory complication Diabetes mellitus complication detail: with peripheral angiopathy with gangrene Diabetes mellitus snf insulin use: with snf use Qualified Code(s): E11.52 - Type 2 diabetes mellitus with diabetic peripheral angiopathy with gangrene (11) Leukocytosis Code(s): D72.829 - ELEVATED WHITE BLOOD CELL COUNT, UNSPECIFIED Qualifiers: Leukocytosis type: other Qualified Code(s): D72.828 - Other elevated white blood cell count (12) Pneumonia Code(s): J18.9 - PNEUMONIA, UNSPECIFIED ORGANISM Qualifiers: Pneumonia type: due to unspecified organism Laterality: right Lung location: unspecified part of lung Qualified Code(s): J18.9 - Pneumonia, unspecified organism Assessment/Plan 67 y.o. male with multiple medical problems admitted for shortness of breath and productive cough, sepsis. MRSA Pneumonia - clinically improved -afebrile, no leukocytosis - suggest switch to clindamycin 450 mg po Q6h x 5 days - instructed to contact PMD if symptoms recurr or develops abd cramping/ diarrhea
--- NOTE | 2017-10-09 15:19 | DS ---
Physical Exam: SUBJECTIVE: Patient seen and examined, feels great and wants to go home. OBJECTIVE: Vital Signs Period Temp Pulse Resp BP Sys/Chandra Pulse Ox Last 24 Hr 97.8 F-98.2 F 51-56 16-20 126-156/65-76 93-95 PHYSICAL EXAM GENERAL: The patient is awake, alert, and fully oriented, in no acute distress. HEAD: Normal with no signs of trauma. EYES: PERRL, extraocular movements intact, sclera anicteric, conjunctiva clear. ENT: Ears normal, nares patent, oropharynx clear without exudates, moist mucous membranes. NECK: Trachea midline, full range of motion, supple. LUNGS: Breath sounds equal, diminshed to auscultation bilaterally HEART: Regular rate and rhythm, S1, S2 without murmur, rub or gallop. ABDOMEN: Soft, nontender, nondistended, normoactive bowel sounds, no guarding, no rebound, no hepatosplenomegaly, no masses. NEUROLOGICAL: Normal speech, gait not observed. PSYCH: Normal mood, normal affect. SKIN: Warm, dry, normal turgor, no rashes or lesions noted. LABS Laboratory Results - last 24 hr 10/08/17 10/08/17 10/09/17 16:46 21:38 05:35 WBC 10.7 H RBC 3.62 L Hgb 10.2 L Hct 31.8 L MCV 87.7 MCH 28.2 MCHC 32.2 RDW 21.3 H Plt Count 233 MPV 8.9 Total Counted 98 Neutrophils % No Result Required. Neutrophils % (Manual) 55.1 D Band Neutrophils % 0.0 Lymphocytes % No Result Required. Lymphocytes % (Manual) 15.3 D Monocytes % (Manual) 8 Eosinophils % (Manual) 10.2 H D Basophils % (Manual) 2.0 Myelocytes % (Man) 0 Metamyelocytes 3 H D Hypochromia 0 Platelet Estimate Normal Polychromasia 0 Poikilocytosis 0 Anisocytosis 1+ Microcytosis 0 Macrocytosis 0 Sodium Potassium Chloride Carbon Dioxide Anion Gap BUN Creatinine POC Glucometer 162 177 Random Glucose Calcium Random Vancomycin 10/09/17 10/09/17 10/09/17 05:35 06:00 06:00 WBC RBC Hgb Hct MCV MCH MCHC RDW Plt Count MPV Total Counted Neutrophils % Neutrophils % (Manual) Band Neutrophils % Lymphocytes % Lymphocytes % (Manual) Monocytes % (Manual) Eosinophils % (Manual) Basophils % (Manual) Myelocytes % (Man) Metamyelocytes Hypochromia Platelet Estimate Polychromasia Poikilocytosis Anisocytosis Microcytosis Macrocytosis Sodium 142 Potassium 3.9 Chloride 109 H Carbon Dioxide 26 Anion Gap 7 L BUN 24 H Creatinine 1.3 POC Glucometer 122 Random Glucose 118 H Calcium 8.6 Random Vancomycin 14.887 10/09/17 10:54 WBC RBC Hgb Hct MCV MCH MCHC RDW Plt Count MPV Total Counted Neutrophils % Neutrophils % (Manual) Band Neutrophils % Lymphocytes % Lymphocytes % (Manual) Monocytes % (Manual) Eosinophils % (Manual) Basophils % (Manual) Myelocytes % (Man) Metamyelocytes Hypochromia Platelet Estimate Polychromasia Poikilocytosis Anisocytosis Microcytosis Macrocytosis Sodium Potassium Chloride Carbon Dioxide Anion Gap BUN Creatinine POC Glucometer 141 Random Glucose Calcium Random Vancomycin HOSPITAL COURSE: Date of Admission:10/04/17 Date of Discharge: 10/09/17 Patient is a 67 year old male with a past medical history of CVA (with no residuals), CHF, hypertension, hyperlipidemia, COPD, renal insufficiency, diabetes mellitus. He presented to the ED with nausea vomiting and was found to have sepsis secondary to MRSA pneumonia. ID: Sepsis Pneumonia, MRSA, resolved Clinically improving, oxygen dependent @ 3 liters at home Afebrile, WBC stable Treated with Vanco during hospitalization Patient reports feeling better, breathing at baseline To continue Clindamycin 450mg q6 hours x 5 more days as per ID Patient to follow up with PMD and cardiology as an outpatient, he is in agreement Cardiology CHF, HTN, HLD To continue home meds Now on Coreq, stopped home dose of Toprol Amlodopine added Outpatient cardiology follow up Disposition> Discharge home with close cardiology follow up. full code Minutes to complete discharge: 60 Discharge Summary Reason For Visit: ACUTE ON CHRONIC RENAL FAILURE Current Active Problems COPD (chronic obstructive pulmonary disease) (Acute) Dyspnea (Acute) Metabolic acidosis (Acute) Orthopnea (Acute) Renal failure (ARF), acute on chronic (Acute) Weakness (Acute) Condition: Improved - Instructions Diet, Activity, Other Instructions: Mr. Scott Please continue the antibiotics as ordered: Clindamycin 450mg every 6 hours for 5 more days (from 10/09/2017 --> 10/15/2017) Home medication changes: Metoprolol has been changed to Coreq, Amlodopine 5mg has been added to your daily regimen. Clindamycin antibiotics to continue for 5 more days (every 6 hours) continue the Aspirin and Plavix as you were taking at home Please see your painter helper within 3 days after discharge for follow up appointment. Please call me with any questions that you may have [facility] [phone] Referrals: Laurent Mckeon MD [Staff Physician] - Vin Isbell MD [Primary Care Provider] - Disposition: HOME - Home Medications Comprehensive Discharge Medication List: Ambulatory Orders Aspirin [Ecotrin] 81 mg PO DAILY 04/29/15 Docusate Sodium [Colace -] 100 mg PO BID capsule 08/26/15 Hydralazine HCl [Apresoline -] 10 mg PO BID #180 tablet 08/14/16 Polyethylene Glycol 3350 [Miralax 119 gm Btl -] 17 gm PO BID PRN #0 bottle 08/14 Pregabalin [Lyrica] 50 mg PO BID 03/13/17 Isosorbide Mononitrate [Isosorbide Mononitrate ER] 30 mg PO DAILY 06/04/17 Acetaminophen [Tylenol .Regular Strength -] 650 mg PO Q4H PRN #90 tablet Atorvastatin Ca [Lipitor] 80 mg PO HS #30 tablet 06/10/17 Insulin Sliding Scale [Novolog Vial Sliding Scale -] 1 vial SQ ACHS #7 units 10/15 Metoprolol Succinate [Toprol XL -] 50 mg PO BID #30 tab 06/10/17 Pantoprazole Sodium [Protonix -] 40 mg PO DAILY #30 tab 06/10/17 Albuterol 0.083% Nebulizer Clarisse [Ventolin 0.083%] 1 neb NEB QID PRN 10/04/17 Furosemide [Lasix] 80 mg PO BID 10/04/17 Metolazone [Zaroxolyn -] 5 mg PO DAILY 10/04/17 Zolpidem Tartrate [Ambien] 10 mg PO HS 10/04/17 This patient is new to me today: Yes Date on this admission: 10/09/17 Emergency Visit: Yes ED Registration Date: 10/04/17 Care time: The patient presented to the Emergency Department on the above date and was hospitalized for further evaluation of their emergent condition. Critical Care patient: No - Discharge Referral Referred to [facility] Med P.C.: No
--- NOTE | 2017-10-09 17:58 | PN ---
Progress Note (short form) - Note Progress Note: Renal follow up for BRANT Pt seen and examined at the bedside prior to discharge no acute complaints feels well Vital Signs Temperature 98.2 F 10/09/17 10:00 Pulse Rate 52 L 10/09/17 10:00 Respiratory Rate 20 10/09/17 10:00 Blood Pressure 149/76 10/09/17 10:00 O2 Sat by Pulse Oximetry (%) 93 L 10/09/17 09:00 Intake & Output 10/06/17 10/07/17 10/08/17 10/09/17 23:59 23:59 23:59 23:59 Intake Total 1535 2100 900 400 Output Total 1350 6754 852 2903 Balance 185 300 200 -1175 Weight 72.575 kg NAD awake and alert RRR CTA (anterior) No LE edema CBC, BMP 10/09/17 05:35 10/09/17 05:35 A/P 67 year old gentleman with PMhx of CKD/BRANT, DM type 2, COPD, Neuropathy, CVA, CAD, CHF who presented with weakness/fatigue and found to have PNA withi BRANT #Acute Kidney Injury on CKD secondary to renal hypoprofusion in setting of Sepsis/NSAID use Renal function improved and stable stable for discharge with outpatient follow up wit PMD #PNA/Sepsis s/p Abx #Non-Anion gap metabolic acidosis can d/c sodium bicarb #Anemia Trend CBC no acute indication for transfusion at this time #Hypertension continue amlodipine Gerber Rodriguez DO
== END 2017-10-09 17:14 | disposition home or self-care (01) | DRG 871 ==
LOC: JER 11:06 → JERBED 15:05 → J4S 16:30
PROVIDERS: ADMIT Internal Medicine; ATTEND Internal Medicine
DX: A41.89 Other specified sepsis (principal); J15.212 Pneumonia due to Methicillin resistant Staphylococcus aureus; N17.9 Acute kidney failure, unspecified; E87.2 Acidosis; I13.0 Hypertensive heart and chronic kidney disease with heart failure and stage 1 through stage 4 chronic kidney disease, or unspecified chronic kidney disease; I50.22 Chronic systolic (congestive) heart failure; E11.52 Type 2 diabetes mellitus with diabetic peripheral angiopathy with gangrene; I96 Gangrene, not elsewhere classified; J44.1 Chronic obstructive pulmonary disease with (acute) exacerbation; L97.528 Non-pressure chronic ulcer of other part of left foot with other specified severity; I25.10 Atherosclerotic heart disease of native coronary artery without angina pectoris; D64.9 Anemia, unspecified; E11.621 Type 2 diabetes mellitus with foot ulcer; E11.22 Type 2 diabetes mellitus with diabetic chronic kidney disease; N18.2 Chronic kidney disease, stage 2 (mild); I25.2 Old myocardial infarction; I25.5 Ischemic cardiomyopathy; E11.40 Type 2 diabetes mellitus with diabetic neuropathy, unspecified; E78.5 Hyperlipidemia, unspecified; E87.5 Hyperkalemia; I44.1 Atrioventricular block, second degree; M54.16 Radiculopathy, lumbar region; K52.89 Other specified noninfective gastroenteritis and colitis; D72.828 Other elevated white blood cell count; Z87.891 Personal history of nicotine dependence; Z99.81 Dependence on supplemental oxygen; Z86.73 Personal history of transient ischemic attack (TIA), and cerebral infarction without residual deficits; Z95.5 Presence of coronary angioplasty implant and graft
CPT/HCPCS: 36415; 36600; 71010-TC; 71250-TC; 76775-TC; 80048; 80053; 81003; 81015; 82375; 82436; 82550; 82570; 82803; 83050; 83605; 83735; 83880; 84100; 84133; 84300; 84484; 84540; 85025; 85027; 85610; 85730; 87040; 87070; 87186; 87205; 87899; 93005; 93010; 97116-GP; 97161-GP; 99284-25; G0480; J1644

== ENCOUNTER 2018-05-24 05:02 | Observation (INO) | payer OTHER ==
[2018-05-24 05:26] LABS: EOS % 3.7 % (0-4.5); HEMATOCRIT 36.3 % (35.4-49); HEMOGLOBIN 11.5 GM/dL (11.7-16.9); LYMPH % 6.4 % (8-40); MCH 32.4 pg (25.7-33.7); MCHC 31.6 g/dl (32.0-35.9); MEAN CELL VOLUME 102.7 fl (80-96); MEAN PLT VOLUME 8.5 fl (7.5-11.1); MONO % 8.6 % (3.8-10.2); NEUT % 80.3 % (42.8-82.8); PLATELET COUNT 270 K/MM3 (134-434); RBC 3.54 M/mm3 (4.00-5.60); RDW 16.5 % (11.9-15.9)
[2018-05-24 05:51] LABS: INR 0.96 (0.82-1.09); PROTHROMBIN TIME (PATIENT) 10.8 SEC (9.7-13.0)
[2018-05-24 05:53] LABS: URINE APPEARANCE CLEAR; URINE BILIRUBIN NEGATIVE (<2.0 mg/dL); URINE COLOR LTYELLOW; URINE GLUCOSE (UA) NEGATIVE (NEGATIVE); URINE KETONE NEGATIVE (NEGATIVE); URINE NITRITE NEGATIVE (NEGATIVE); URINE PROTEIN NEGATIVE (NEGATIVE); URINE UROBILINOGEN NEGATIVE mg/dL (0.2-1.0)
[2018-05-24 05:54] LABS: URINE LEUK ESTERASE 1+ (NEGATIVE)
[2018-05-24 05:56] LABS: EPI CELLS RARE /HPF (FEW); URINE HYALINE CAST 17 /lpf; URINE MUCUS RARE
[2018-05-24 06:04] LABS: ALBUMIN 3.2 g/dl (3.4-5.0); ALK PHOS 99 U/L (45-117); ANION GAP 14 (8-16); BILIRUBIN,TOTAL 0.3 mg/dL (0.2-1.0); BLOOD UREA NITROGEN 36 mg/dL (7-18); CALCIUM 8.1 mg/dL (8.5-10.1); CHLORIDE 108 mmol/L (98-107); CO2 19 mmol/L (21-32); GLUCOSE,RANDOM 138 mg/dL (74-106); POTASSIUM 3.8 mmol/L (3.5-5.1); SGOT/AST 16 U/L (15-37); SGPT/ALT 19 U/L (12-78); SODIUM 141 mmol/L (136-145)
--- NOTE | 2018-05-24 06:04 | PDOC ---
History of Present Illness - General Chief Complaint: Injury Stated Complaint: DIARRHEA Time Seen by Provider: 05/24/18 05:07 - History of Present Illness Initial Comments: 05/24/18 05:57 68 yo M with h/o HTN, DM, HLD, CVA x 2 (no residual affects), CA x 2, multiple PCI x 7 stents, CHF, COPD, renal insufficiency, who p/w loose watery stools, vomitting, and weakness. Pt. reports fecal incontinence this evening while sleep. No identifiable triggers. When he was in bathroom to clean himself, he reports loosing his balance and controlling himself to ground with no resultant LOC, head/neck/back trauma. Report similar occurrence one week ago. Patient also reports 3 days of non bloody, biliary emesis. Denies abdominal pain, BPR. Normal appetite. Patient denies orthopnea, PND, leg swelling/pain, palpitations, F/C, CP, SOB, urinary complaints, abdominal pain, constipation, lightheadedness, back pain, sensory changes. PMHx: as noted above. denies h/o abdominal surgery. Denies h/o abnml colonoscopy. ROS: as noted SHx: Denies Etoh, tobacco, IVDA. Allergies: NKDA Past History - Past Medical History Allergies/Adverse Reactions: Allergies Allergy/AdvReac Type Severity Reaction Status Date / Time lansoprazole [From Prevacid] Allergy Intermediate Verified 05/24/18 07:07 Home Medications: Ambulatory Orders Aspirin [Ecotrin] 81 mg PO DAILY 04/29/15 Docusate Sodium [Colace -] 100 mg PO BID capsule 08/26/15 Polyethylene Glycol 3350 [Miralax 119 gm Btl -] 17 gm PO BID PRN #0 bottle 08/14 Pregabalin [Lyrica] 50 mg PO BID 03/13/17 Isosorbide Mononitrate [Isosorbide Mononitrate ER] 30 mg PO DAILY 06/04/17 Acetaminophen [Tylenol .Regular Strength -] 650 mg PO Q4H PRN #90 tablet Atorvastatin Ca [Lipitor] 80 mg PO HS #30 tablet 06/10/17 Insulin Sliding Scale [Novolog Vial Sliding Scale -] 1 vial SQ ACHS #7 units 10/15 Albuterol 0.083% Nebulizer Clarisse [Ventolin 0.083% Nebulizer Soln -] 1 neb NEB QID PRN 10/04/17 Zolpidem Tartrate [Ambien] 10 mg PO HS 10/04/17 Albuterol 2.5/Ipratropium 0.5 [Duoneb -] 1 amp NEB Q6H PRN amp 10/09/17 Amlodipine Besylate [Norvasc -] 5 mg PO DAILY #30 tablet 10/09/17 Carvedilol [Coreg -] 6.25 mg PO BID #60 tablet 10/09/17 Clindamycin [Cleocin -] 450 mg PO Q6HPO #60 capsule 10/09/17 Clopidogrel Bisulfate [Plavix -] 75 mg PO DAILY #30 tablet 10/09/17 Morphine *Sr* [MS Contin -] 90 mg PO TID #14 tablet.sa MDD 3 tabs 10/09/17 Sodium Bicarbonate - 650 mg PO DAILY #30 tablet 10/09/17 Temazepam [Restoril -] 30 mg PO HS #30 capsule MDD 1 tab 10/09/17 hydrALAZINE HCL [Apresoline -] 10 mg PO BID tablet 10/09/17 Anemia: No Asthma: No Cancer: No Cardiac Disorders: Yes (9 stents, CA, CAD) CVA: Yes (CVA IN 2014 W/O DEFICIT) COPD: Yes (@l O2 via NC at home) CHF: Yes Dementia: No Diabetes: Yes GI Disorders: Yes (colitis NOW CONSTIPATION) Disorders: Yes HTN: Yes Hypercholesterolemia: Yes Kidney Stones: Yes Liver Disease: No Seizures: No Thyroid Disease: No - Surgical History Abdominal Surgery: No Appendectomy: No Cardiac Surgery: Yes (stents x 9) Cholecystectomy: No Lung Surgery: No Neurologic Surgery: No Orthopedic Surgery: No - Immunization History Immunization Up to Date: No - Suicide/Smoking/Psychosocial Hx Smoking Status: No Smoking History: Never smoked Have you smoked in the past 12 months: No Number of Cigarettes Smoked Daily: 30 If you are a former smoker, when did you quit?: 2017 Cigars Per Day: 0 Information on smoking cessation initiated: No 'Breaking Loose' booklet given: 01/12/17 Hx Alcohol Use: No Drug/Substance Use Hx: No Substance Use Type: None Hx Substance Use Treatment: No Review of Systems - Review of Systems Comments:: 05/24/18 06:00 GENERAL/CONSTITUTIONAL: No fever or chills. No weakness. HEAD, EYES, EARS, NOSE AND THROAT: No change in vision. No ear pain or discharge. No sore throat. CARDIOVASCULAR: No chest pain or shortness of breath RESPIRATORY: No cough, wheezing, or hemoptysis. GASTROINTESTINAL: + nausea, vomiting, and diarrhea. No constipation. GENITOURINARY: No dysuria, frequency, or change in urination. MUSCULOSKELETAL: No joint or muscle swelling or pain. No neck or back pain. SKIN: No rash NEUROLOGIC: No headache, vertigo, loss of consciousness, or change in strength/ sensation. ENDOCRINE: No increased thirst. No abnormal weight change HEMATOLOGIC/LYMPHATIC: No anemia, easy bleeding, or history of blood clots. ALLERGIC/IMMUNOLOGIC: No hives or skin allergy. *Physical Exam - Vital Signs Last Vital Signs Temp Pulse Resp BP Pulse Ox 98.4 F 77 18 129/59 87 L 05/24/18 05:10 05/24/18 05:10 05/24/18 05:10 05/24/18 05:10 05/24/18 05:10 - Physical Exam Comments: 05/24/18 06:00 GENERAL: Awake, alert, and fully oriented, in no acute distress HEAD: No signs of trauma, normocephalic, atraumatic EYES: PERRLA, EOMI, sclera anicteric, conjunctiva clear ENT: Hearing grossly normal, nares patent, oropharynx clear without exudates. Moist mucosa NECK: Normal ROM, supple, no lymphadenopathy, JVD, or masses LUNGS: No distress, speaks full sentences, clear to auscultation bilaterally HEART: Regular rate and rhythm, normal S1 and S2, no murmurs, rubs or gallops, peripheral pulses normal and equal bilaterally. ABDOMEN: Soft, nontender, normoactive bowel sounds. No guarding, no rebound. No masses. Neg CVA ttp. EXTREMITIES : Normal inspection, Normal range of motion, no edema. No clubbing or cyanosis. NEUROLOGICAL: Cranial nerves II through XII grossly intact. Normal speech, no focal sensorimotor deficits SKIN: Warm, Dry, normal turgor, no rashes or lesions noted ED Treatment Course - LABORATORY CBC & Chemistry Diagram: 05/24/18 05:20 05/24/18 05:20 - ADDITIONAL ORDERS Additional order review: Laboratory Results 05/24/18 05/24/18 05:40 05:20 PT with INR 10.80 INR 0.96 Urine Color Ltyellow Urine Appearance Clear Urine pH 5.0 Ur Specific [place] 1.014 Urine Protein Negative Urine Glucose (UA) Negative Urine Ketones Negative Urine Blood Negative Urine Nitrite Negative Urine Bilirubin Negative Urine Urobilinogen Negative Ur Leukocyte Esterase 1+ H 05/24/18 05:20 RBC 3.54 L MCV 102.7 H MCHC 31.6 L RDW 16.5 H MPV 8.5 Neutrophils % 80.3 Lymphocytes % 6.4 L D Monocytes % 8.6 Eosinophils % 3.7 Basophils % 1.0 - RADIOLOGY Radiology Studies Ordered: Category Date Time Status CXRPORT [CHEST X-RAY PORTABLE*] [RAD] Stat Radiology 05/24/18 05:08 Taken Medical Decision Making - Medical Decision Making 05/24/18 06:01 68 yo M with h/o HTN, DM, HLD, CVA x 2 (no residual affects), CA x 2, multiple PCI x 7 stents, CHF, COPD, renal insufficiency, who p/w loose watery stools, and weakness. O2 87 % RA, vitals otherwise wnl, AF, abdomen non ttp. ACS/CA r/ o. Low suspicion SBO. Will assess for cardiac dysarrythmias, dehydration, hypoglycemia, electrolyte abnml, metabolic and toxic derangements, acid base disturbances, and infection. Possible gastroenteritis. DDx: colitis, appendicitis, mesenteric ischemia, AAA. 05/24/18 06:21 ED Course: EKG: NSR with 1st degree AV block, MO interval 222. LAD, LVH, RBBB. No acute JAEL , STD. 05/24/18 06:24 WBC: 11.0 05/24/18 06:25 BUN/Cr: 36/2.0 05/24/18 06:31 Trop: Neg BNP: 2940 Plan to admit to med/surg for BRANT. 05/24/18 07:[address] Shay. Inpt. *DC/Admit/Observation/Transfer Diagnosis at time of Disposition: Renal failure (ARF), acute on chronic Qualifiers: Acute renal failure type: unspecified Chronic kidney disease stage: unspecified stage Qualified Code(s): N17.9 - Acute kidney failure, unspecified; N18.9 - Chronic kidney disease, unspecified - Discharge Dispostion Decision to Admit order: Yes - Referrals - Patient Instructions - Post Discharge Activity
[2018-05-24 06:07] LABS: N-TERMINAL BNP 2940.2 pg/ml (5-125)
[2018-05-24] MEDS ORDERED: SODIUM CHLORIDE 1,000 ML IV STA (06:28)
--- NOTE | 2018-05-24 06:36 | PDOC ---
Attending Attestation - HPI HPI: 05/24/18 06:37 The patient is a 68 year old male with a significant PMH of diabetes, COPD neuropathy, SD,CVA , CKD,kidney stones,multiple PCI x 7 stents, renal insufficiency, ischemic cardiomyopathy with CHF who presents to the emergency department with loose watery stools, vomitting, and weakness. Pt. reports fecal incontinence this evening while sleep. No identifiable triggers. When he was in bathroom to clean himself, he reports loosing his balance and controlling himself to ground with no resultant LOC, head/neck/back trauma. Report similar occurrence one week ago. Patient also reports 3 days of non bloody, biliary emesis. Denies abdominal pain, BPR. Normal appetite. The patient denies any other complaints. He denies orthopnea, PND, leg swelling/pain, palpitations, F/C , CP, SOB, urinary complaints, abdominal pain, constipation, lightheadedness, back pain, sensory changes. The patient denies any other complaints. Documentation prepared by Robson Hull, acting as medical advisor for Artis Rosado DO. <Robson Hull - Last Filed: 05/24/18 06:37> - Resident Resident Name: Ronnell Hedrick - ED Attending Attestation I have performed the following: I have examined & evaluated the patient, The case was reviewed & discussed with the resident, I agree w/resident's findings & plan, Exceptions are as noted - Physicial Exam PE: 05/28/18 19:26 HEENT: at/nc, megan, eomi, cvs: TRR +S1 +s2 ABD: soft, obese, NT ext: no cce neuro: no focal deficits - Medical Decision Making 05/28/18 19:25 Pt was admitted for further care and elevation <Artis Rosado - Last Filed: 05/28/18 19:27>
[2018-05-24 07:01] LABS: ANISOCYTOSIS 1+; MACROCYTOSIS 1+; PLATELET ESTIMATE ADEQUATE
--- NOTE | 2018-05-24 11:06 | HP ---
Admitting History and Physical - Primary Care Physician PCP: Vin Isbell - Admission Chief Complaint: diarrhea History of Present Illness: is a 68 year old male who comes in with 2 week history of non bloody diarrhea. Pt reports having diarrhea once a day for 2 weeks. Pt started taking immodium 4mg/day since the onset. Denies any blood in stool or increased frequency. He reports generalized weakness since diarrhea and had 2 falls at home without LOC/head trauma. Pt was found by face down on the floor. Pt denies any prodromal symptoms with fall, he reports he felt weak and fell. He reports taking levaquin for 10 days over a month ago. He also reports hx of chronic constipation. Denies any recent changes in diet. Pt reports he has chronic vomiting 1x/day. Otherwise, denies nausea, chest pain, worsening sob, dizziness, lightheadedness, fever/chills, recent changes in medications, dysuria , abdominal pain, headache or recent travel. 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 No: AFIB Pulmonary: Yes: COPD, O2 Dependent, Pneumonia, Previously Intubated Gastrointestinal: Yes: Constipation, GERD, Other (Colitis) Renal/: Yes: Renal Inusuff, Other Infectious Disease: Yes: MRSA Psych: Yes: Addictions Musculoskeletal: Yes: Chronic low back pain, Other (Lumbar radiculopathy) Endocrine: Yes: Diabetes Mellitus - Past Surgical History Past Surgical History: Yes: Stent (PCIX5) - Advance Directives Advance Directives: Yes: DNR - Smoking History Smoking history: Former smoker Have you smoked in the past 12 months: No Aproximately how many cigarettes per day: 30 If you are a former smoker, when did you quit?: 2017 - Alcohol/Substance Use Hx Alcohol Use: No History of Substance Use: reports: None - Social History Usual Living Arrangement: Yes: With Spouse ADL: Family Assistance History of Recent Travel: No Home Medications - Allergies Allergies/Adverse Reactions: Allergies Allergy/AdvReac Type Severity Reaction Status Date / Time lansoprazole [From Prevacid] Allergy Intermediate Verified 05/24/18 07:07 - Home Medications Home Medications: Ambulatory Orders Aspirin [Ecotrin] 81 mg PO DAILY 04/29/15 Pregabalin [Lyrica] 50 mg PO BID 03/13/17 Isosorbide Mononitrate [Isosorbide Mononitrate ER] 30 mg PO DAILY 06/04/17 Acetaminophen [Tylenol .Regular Strength -] 650 mg PO Q4H PRN #90 tablet Atorvastatin Ca [Lipitor] 80 mg PO HS #30 tablet 06/10/17 Insulin Sliding Scale [Novolog Vial Sliding Scale -] 1 vial SQ ACHS #7 units 10/15 Albuterol 0.083% Nebulizer Clarisse [Ventolin 0.083% Nebulizer Soln -] 1 neb NEB QID PRN 10/04/17 Albuterol 2.5/Ipratropium 0.5 [Duoneb -] 1 amp NEB Q6H PRN amp 10/09/17 Amlodipine Besylate [Norvasc -] 5 mg PO DAILY #30 tablet 10/09/17 Carvedilol [Coreg -] 6.25 mg PO BID #60 tablet 10/09/17 Clopidogrel Bisulfate [Plavix -] 75 mg PO DAILY #30 tablet 10/09/17 Morphine *Sr* [MS Contin -] 90 mg PO TID #14 tablet.sa MDD 3 tabs 10/09/17 Sodium Bicarbonate - 650 mg PO DAILY #30 tablet 10/09/17 Temazepam [Restoril -] 30 mg PO HS #30 capsule MDD 1 tab 10/09/17 hydrALAZINE HCL [Apresoline -] 10 mg PO BID tablet 10/09/17 Family Disease History - Family Disease History Family Disease History: Diabetes: Grandparent, Father, Mother (CVA, COPD), Sister (COPD), Heart Disease: Mother, CA: Father, Respiratory: Mother, Sister, Other: Mother Physical Examination Vital Signs: Vital Signs Temperature 98.5 F 05/24/18 08:19 Pulse Rate 74 05/24/18 09:52 Respiratory Rate 16 05/24/18 09:52 Blood Pressure 117/70 05/24/18 09:52 O2 Sat by Pulse Oximetry (%) 98 05/24/18 09:52 Labs: CBC, BMP 05/24/18 05:20 05/24/18 05:20 Imaging - Results Chest X-ray: Report Reviewed Problem List - Problems (1) Diarrhea Assessment/Plan: loose bmsx 2 weeks r/o infec etiology cdiff/ stool culture ordered monitor Code(s): R19.7 - DIARRHEA, UNSPECIFIED (2) Weakness Assessment/Plan: generalized possibly secondary to dehydration/ diarrhea ivf PT monitor Code(s): R53.1 - WEAKNESS (3) BRANT (acute kidney injury) Assessment/Plan: suspect secondary from dehydration IVF monitor Code(s): N17.9 - ACUTE KIDNEY FAILURE, UNSPECIFIED (4) CAD (coronary artery disease) Assessment/Plan: no signs of ACS, s/p PCIx5 continue ASA, plavix on BB, high intensity statin , imdur Code(s): I25.10 - ATHSCL HEART DISEASE OF [place] CORONARY ARTERY W/O ANG PCTRS Qualifiers: [place] vs. transplanted heart: [place] heart Associated angina: without angina (5) CKD (chronic kidney disease) Assessment/Plan: acute on chronic IVF monitor Code(s): N18.9 - CHRONIC KIDNEY DISEASE, UNSPECIFIED Qualifiers: Chronic kidney disease stage: stage 2 (mild) Qualified Code(s): N18.2 - Chronic kidney disease, stage 2 (mild) (6) COPD (chronic obstructive pulmonary disease) Assessment/Plan: not in acute exacerbation continue home O2 via NC continue nebs monitor Code(s): J44.9 - CHRONIC OBSTRUCTIVE PULMONARY DISEASE, UNSPECIFIED (7) Chronic pain Assessment/Plan: chronic continue MS contin Code(s): G89.29 - OTHER CHRONIC PAIN (8) Diabetes mellitus Assessment/Plan: chronic, complicated BGM insulin sliding scale Code(s): E11.9 - TYPE 2 DIABETES MELLITUS WITHOUT COMPLICATIONS Qualifiers: Diabetes mellitus type: type 2 Diabetes mellitus skilled nursing insulin use: with skilled nursing use Diabetes mellitus complication status: with circulatory complication Diabetes mellitus complication detail: with peripheral angiopathy with gangrene Qualified Code(s): E11.52 - Type 2 diabetes mellitus with diabetic peripheral angiopathy with gangrene (9) Fall Assessment/Plan: secondary to generalized weakness no acute trauma no LOC/head trauma fall risk precautions Code(s): W19.XXXA - UNSPECIFIED FALL, INITIAL ENCOUNTER Qualifiers: Encounter type: initial encounter Qualified Code(s): W19.XXXA - Unspecified fall, initial encounter (10) Hypertension Assessment/Plan: controlled continue home meds Code(s): I10 - ESSENTIAL (PRIMARY) HYPERTENSION Qualifiers: Hypertension type: essential hypertension Qualified Code(s): I10 - Essential (primary) hypertension (11) Peripheral neuropathy Assessment/Plan: chronic continue lyrica Code(s): G62.9 - POLYNEUROPATHY, UNSPECIFIED (12) Congestive heart failure (CHF) Assessment/Plan: chronic systolic Code(s): I50.9 - HEART FAILURE, UNSPECIFIED (13) Cardiomyopathy Code(s): I42.9 - CARDIOMYOPATHY, UNSPECIFIED (14) History of CVA (cerebrovascular accident) Code(s): Z86.73 - PRSNL HX OF TIA (TIA), AND CEREB INFRC W/O RESID DEFICITS (15) History of OR (myocardial infarction) Code(s): I25.2 - OLD MYOCARDIAL INFARCTION
[2018-05-24] MEDS ORDERED: ALBUTEROL SO4 0.083% IH SOL 2.5 MG/3 ML VIAL.NEB. NEB PRN (11:08)
[2018-05-24] MEDS ORDERED: ALBUTEROL SO4 2.5/IPRATROPIUM 0.5 INH SOL 3 ML VIAL.NEB. NEB PRN (11:08)
[2018-05-24] MEDS ORDERED: morphine SO4 SUSTAINED ACTING 30 MG TABLET.SA PO PRN (11:08)
[2018-05-24] MEDS ORDERED: SODIUM CHLORIDE 1,000 ML IV SCH (11:15)
--- NOTE | 2018-05-24 14:28 | EKG ---
Test Reason : Blood Pressure : / mmHG Vent. Rate : 083 BPM Atrial Rate : 083 BPM P-R Int : 222 ms QRS Dur : 132 ms QT Int : 416 ms P-R-T Axes : 018 -51 002 degrees QTc Int : 488 ms SINUS RHYTHM WITH SINUS ARRHYTHMIA WITH 1ST DEGREE A-V BLOCK WITH OCCASIONAL PREMATURE VENTRICULAR COMPLEXES LEFT AXIS DEVIATION RIGHT BUNDLE BRANCH BLOCK MINIMAL VOLTAGE CRITERIA FOR LVH, MAY BE NORMAL VARIANT INFERIOR INFARCT (CITED ON OR BEFORE 16-SEP-2001) ANTERIOR INFARCT (CITED ON OR BEFORE 10-MAR-2013) ABNORMAL ECG WHEN COMPARED WITH ECG OF 05-OCT-2017 04:04, SIGNIFICANT CHANGES HAVE OCCURRED Confirmed by JOAO MAYEN MD ([id number]) on 05/24/2018 2:28:16 PM Referred By: Confirmed By:JOAO MAYEN MD
[2018-05-24 15:15] VITALS: BMI 28.3
[2018-05-24] MEDS ORDERED: INSULIN (NOVOLOG) ASPART 100 UNITS/ML 10ML VIAL ONE (16:26)
[2018-05-24] MEDS: morphine SO4 SUSTAINED ACTING 30 MG TABLET.SA PO SCH ×2 (16:28→22:08)
[2018-05-24] MEDS: INSULIN SLIDING SCALE (NOVOLOG) 1 VIAL SQ SCH ×2 (16:45→22:11)
[2018-05-24] MEDS: HEPARIN NA (PORCINE) 5,000 UNITS/ML 1ML VIAL SQ SCH (18:22)
[2018-05-24] MEDS ORDERED: TEMAZEPAM 15 MG CAPSULE PO SCH (22:00)
[2018-05-24] MEDS ORDERED: ATORVASTATIN CA 80 MG TABLET (FP) PO SCH (22:00)
[2018-05-24] MEDS: PREGABALIN 25 MG CAPSULE PO SCH (22:07)
[2018-05-24] MEDS: hydrALAZINE HCL 10 MG TABLET PO SCH (22:07)
[2018-05-24] MEDS: CARVEDILOL 6.25 MG TABLET (FP) PO SCH (22:07)
[2018-05-25] MEDS: ACETAMINOPHEN 325 MG TABLET (FP) PO PRN ×2 (00:50→08:19)
[2018-05-25] MEDS: HEPARIN NA (PORCINE) 5,000 UNITS/ML 1ML VIAL SQ SCH ×2 (01:01→09:24)
[2018-05-25] MEDS: morphine SO4 SUSTAINED ACTING 30 MG TABLET.SA PO SCH ×2 (05:27→13:46)
[2018-05-25] MEDS: INSULIN SLIDING SCALE (NOVOLOG) 1 VIAL SQ SCH ×2 (06:02→11:39)
[2018-05-25 06:42] LABS: BASO % 1.2 % (0-2.0); EOS % 6.4 % (0-4.5); HEMATOCRIT 34.5 % (35.4-49); LYMPH % 16.6 % (8-40); MCH 32.4 pg (25.7-33.7); MEAN CELL VOLUME 101.3 fl (80-96); MEAN PLT VOLUME 8.3 fl (7.5-11.1); MONO % 13.1 % (3.8-10.2); NEUT % 62.7 % (42.8-82.8); PLATELET COUNT 244 K/MM3 (134-434); RBC 3.41 M/mm3 (4.00-5.60); RDW 16.4 % (11.9-15.9); WHITE BLOOD COUNT 8.7 K/mm3 (4.0-10.0)
[2018-05-25 07:06] LABS: ANION GAP 11 (8-16); BLOOD UREA NITROGEN 23 mg/dL (7-18); CALCIUM 8.2 mg/dL (8.5-10.1); CHLORIDE 116 mmol/L (98-107); CO2 22 mmol/L (21-32); CREATININE 1.1 mg/dL (0.7-1.3); GLUCOSE,RANDOM 89 mg/dL (74-106); MAGNESIUM 1.6 mg/dL (1.8-2.4); PHOSPHOROUS 2.2 mg/dL (2.5-4.9); POTASSIUM 4.2 mmol/L (3.5-5.1); SODIUM 149 mmol/L (136-145)
[2018-05-25] MEDS: PREGABALIN 25 MG CAPSULE PO SCH (09:25)
[2018-05-25] MEDS: hydrALAZINE HCL 10 MG TABLET PO SCH (09:25)
[2018-05-25] MEDS: CARVEDILOL 6.25 MG TABLET (FP) PO SCH (09:25)
[2018-05-25] MEDS ORDERED: amLODIPine BESYLATE 5 MG TABLET (FP) PO SCH (10:00)
[2018-05-25] MEDS ORDERED: SODIUM BICARBONATE 650 MG TABLET PO SCH (10:00)
[2018-05-25] MEDS ORDERED: ASPIRIN COATED 81 MG TABLET.EC PO SCH (10:00)
[2018-05-25] MEDS ORDERED: CLOPIDOGREL BISULFATE 75 MG TABLET (FP) PO SCH (10:00)
[2018-05-25] MEDS ORDERED: ISOSORBIDE MONONITRATE 30 MG TAB.SR.24H (FP) PO SCH (10:00)
[2018-05-25] MEDS ORDERED: NAPH,MB-DB/K PH,MBDB POWDER PACKET PO SCH (11:15)
--- NOTE | 2018-05-25 11:16 | DS ---
Physical Examination Vital Signs: Vital Signs Temperature 97.3 F L 05/25/18 09:33 Pulse Rate 61 05/25/18 09:33 Respiratory Rate 18 05/25/18 09:33 Blood Pressure 152/73 05/25/18 09:33 O2 Sat by Pulse Oximetry (%) 99 05/25/18 09:00 Constitutional: Yes: Well Nourished, No Distress, Calm Cardiovascular: Yes: Regular Rate and Rhythm. No: Gallop, Murmur Respiratory: Yes: WNL, Regular, CTA Bilaterally, Diminished. No: Rales, Rhonchi , SOB, Tachypnea, Wheezes Gastrointestinal: Yes: WNL, Normal Bowel Sounds, Soft, Abdomen, Obese. No: Distention, Tenderness Renal/: Yes: WNL Musculoskeletal: Yes: Back Pain Extremities: Yes: WNL Edema: No Integumentary: Yes: WNL Neurological: Yes: WNL, Alert, Oriented Psychiatric: Yes: WNL, Alert, Oriented Labs: CBC, BMP 05/25/18 06:30 05/25/18 06:30 Discharge Summary Reason For Visit: ACUTE ON CHRONIC RENAL FAILURE Current Active Problems BRANT (acute kidney injury) (Acute) Diarrhea (Acute) History of CVA (cerebrovascular accident) (Acute) History of CA (myocardial infarction) (Acute) Renal failure (ARF), acute on chronic (Acute) Hospital Course: is a 68 year old male who was admitted yesterday for diarrhea, BRANT, and generalized weakness. BRANT resolved s/p IVF, pt eating and drinking regular diet. Pt had no episodes of diarrhea since admission. Pt also reports generalized weakness has resolved. All labs unremarkable. No acute findings. Pt worked well with PT. Pt is medically stable for discharge. f/u as directed Condition: Good - Instructions Diet, Activity, Other Instructions: high fiber diet activity as tolerated resume all meds f/u as directed Referrals: Vin Isbell MD [Staff Physician] - 1 Week Disposition: HOME - Home Medications Comprehensive Discharge Medication List: Ambulatory Orders Aspirin [Ecotrin] 81 mg PO DAILY 04/29/15 Pregabalin [Lyrica] 50 mg PO BID 03/13/17 Isosorbide Mononitrate [Isosorbide Mononitrate ER] 30 mg PO DAILY 06/04/17 Acetaminophen [Tylenol .Regular Strength -] 650 mg PO Q4H PRN #90 tablet Atorvastatin Ca [Lipitor] 80 mg PO HS #30 tablet 06/10/17 Insulin Sliding Scale [Novolog Vial Sliding Scale -] 1 vial SQ ACHS #7 units 10/15 Albuterol 0.083% Nebulizer Clarisse [Ventolin 0.083% Nebulizer Soln -] 1 neb NEB QID PRN 10/04/17 Albuterol 2.5/Ipratropium 0.5 [Duoneb -] 1 amp NEB Q6H PRN amp 10/09/17 Amlodipine Besylate [Norvasc -] 5 mg PO DAILY #30 tablet 10/09/17 Carvedilol [Coreg -] 6.25 mg PO BID #60 tablet 10/09/17 Clopidogrel Bisulfate [Plavix -] 75 mg PO DAILY #30 tablet 10/09/17 Morphine *Sr* [MS Contin -] 90 mg PO TID #14 tablet.sa MDD 3 tabs 10/09/17 Sodium Bicarbonate - 650 mg PO DAILY #30 tablet 10/09/17 Temazepam [Restoril -] 30 mg PO HS #30 capsule MDD 1 tab 10/09/17 hydrALAZINE HCL [Apresoline -] 10 mg PO BID tablet 10/09/17
[2018-05-25 13:58] VITALS: BP 119/61; PULSE 64; TEMP 98.9
[2018-05-25] MEDS: MAGNESIUM SULF 50% (8.12 MEQ/2 ML-1 GM VIAL) IVPB SCH ×2 (14:02→15:17)
[2018-05-25 14:27] LABS: PLATELET ESTIMATE ADEQUATE
== END 2018-05-25 16:30 | disposition home or self-care (01) ==
LOC: JER 05:02 → INTOOBSV 07:15 → JERBED 07:15 → UNDOADMOB 07:15 → JERBED 11:07 → J7W 14:28 → JERBED 14:28 → J7W 14:28
PROVIDERS: ADMIT Internal Medicine; ATTEND Internal Medicine
PROC: 3E033GC Introduction of Other Therapeutic Substance into Peripheral Vein, Percutaneous Approach (ICD-10-PCS; principal; 2018-05-24)
PROC: 3E0337Z Introduction of Electrolytic and Water Balance Substance into Peripheral Vein, Percutaneous Approach (ICD-10-PCS; 2018-05-24)
PROC: 3E013VG Introduction of Insulin into Subcutaneous Tissue, Percutaneous Approach (ICD-10-PCS; 2018-05-24)
PROC: 3E013GC Introduction of Other Therapeutic Substance into Subcutaneous Tissue, Percutaneous Approach (ICD-10-PCS; 2018-05-24)
DX: E11.22 Type 2 diabetes mellitus with diabetic chronic kidney disease (principal); I12.9 Hypertensive chronic kidney disease with stage 1 through stage 4 chronic kidney disease, or unspecified chronic kidney disease; N18.9 Chronic kidney disease, unspecified; N17.9 Acute kidney failure, unspecified; E78.5 Hyperlipidemia, unspecified; I25.10 Atherosclerotic heart disease of native coronary artery without angina pectoris; I25.2 Old myocardial infarction; I50.9 Heart failure, unspecified; J44.9 Chronic obstructive pulmonary disease, unspecified; G62.9 Polyneuropathy, unspecified; I25.5 Ischemic cardiomyopathy; R19.7 Diarrhea, unspecified; R53.1 Weakness; G89.29 Other chronic pain; Z79.4 Long term (current) use of insulin; Z87.891 Personal history of nicotine dependence; Z87.442 Personal history of urinary calculi; Z99.81 Dependence on supplemental oxygen; Z86.73 Personal history of transient ischemic attack (TIA), and cerebral infarction without residual deficits; Z95.5 Presence of coronary angioplasty implant and graft; Z88.8 Allergy status to other drugs, medicaments and biological substances; Z79.82 Long term (current) use of aspirin; W18.39XA Other fall on same level, initial encounter; Z91.81 History of falling; Y93.89 Activity, other specified; Y92.008 Other place in unspecified non-institutional (private) residence as the place of occurrence of the external cause
CPT/HCPCS: 36415; 71045-TC-FY; 74018-TC-FY; 80048; 80053; 81003; 81015; 82550; 82962; 83735; 83880; 84100; 84484; 85025; 85610; 87040; 87086; 93005; 93010; 96361; 96365; 96372; 97116-GP; 97161-GP; 99285-25; G0378; J1644; J7030

== ENCOUNTER 2018-10-27 11:07 | Inpatient (IN) | payer OTHER ==
[2018-10-27 11:21] VITALS: BMI 27.0
--- NOTE | 2018-10-27 11:28 | PDOC ---
History of Present Illness - General Chief Complaint: Weakness Stated Complaint: WEAKNESS Time Seen by Provider: 10/27/18 11:18 - History of Present Illness Initial Comments: 10/27/18 12:38 The patient is a 68 year old male with a history of HTN, HLD, DM, COPD, CAD, GA s/p 9 stents, CVA x2 who presents for evaluation of generalized weakness. The patient notes that he has been feeling more fatigued over the past few days. He states that he went to the bathroom yesterday evening and was unable to make it back to his bed due to being to fatigue. He reports worsening whole body generalized weakness over the past 24 hours prompting his presentation to the ED for further evaluation. He notes some shortness of breath which is baseline for him and states that he usually uses 4L of home O2. He otherwise denies fevers, chills, chest pain, headache, nausea, vomiting, numbness, tingling, focal weakness, or changes with urination or bowel movements. Past History - Past Medical History Allergies/Adverse Reactions: Allergies Allergy/AdvReac Type Severity Reaction Status Date / Time lansoprazole [From Prevacid] Allergy Intermediate Verified 05/24/18 07:07 Home Medications: Ambulatory Orders Aspirin [Ecotrin] 81 mg PO DAILY 04/29/15 Pregabalin [Lyrica] 50 mg PO BID 03/13/17 Isosorbide Mononitrate [Isosorbide Mononitrate ER] 30 mg PO DAILY 06/04/17 Acetaminophen [Tylenol .Regular Strength -] 650 mg PO Q4H PRN #90 tablet Albuterol 0.083% Nebulizer Clarisse [Ventolin 0.083% Nebulizer Soln -] 1 neb NEB QID PRN 10/04/17 Amlodipine Besylate [Norvasc -] 5 mg PO DAILY #30 tablet 10/09/17 Clopidogrel Bisulfate [Plavix -] 75 mg PO DAILY #30 tablet 10/09/17 Insulin Sliding Scale [Novolog Vial Sliding Scale -] 20 units SQ TID 05/31/18 Atorvastatin Ca [Lipitor] 40 mg PO HS 10/29/18 Budesonide/Formeterol Fumarate [SYMBICORT 160/4.5mcg -] 2 puff IH BID 10/29/18 Carvedilol [Coreg] 6.25 mg PO BID 10/29/18 Fluticasone/Salmeterol [Advair Hfa 115-21 Mcg Inhaler] 2 puff IH BID 10/29/18 Furosemide [Lasix] 80 mg PO BID 10/29/18 Hydralazine HCl 10 mg PO BID 10/29/18 Hydrocodone/Acetaminophen [Vicodin Hp 10-300 mg Tablet] 10 mg PO Q6H MDD 4 10/29 Insulin Detemir [Levemir Flextouch] 100 unit SQ BID 10/29/18 Lansoprazole [Prevacid] 30 mg PO DAILY 10/29/18 Magnesium Oxide [Magnesium] 400 mg PO DAILY 10/29/18 Sodium Bicarbonate - 650 mg PO DAILY 10/29/18 Temazepam 30 mg PO BID 10/29/18 Zolpidem Tartrate [Ambien] 10 mg PO HS 10/29/18 Anemia: No Asthma: No Cancer: No Cardiac Disorders: Yes (9 stents, GA, CAD) CVA: Yes (stroke x 2) COPD: Yes CHF: No Dementia: No Diabetes: Yes GI Disorders: Yes (colitis NOW CONSTIPATION) Disorders: Yes HTN: Yes Hypercholesterolemia: Yes Kidney Stones: Yes Liver Disease: No Seizures: No Thyroid Disease: No - Surgical History Abdominal Surgery: No Appendectomy: No Cardiac Surgery: Yes (stents x 9) Cholecystectomy: No Lung Surgery: No Neurologic Surgery: No Orthopedic Surgery: No - Immunization History Immunization Up to Date: No - Suicide/Smoking/Psychosocial Hx Smoking Status: No Smoking History: Never smoked Have you smoked in the past 12 months: No Number of Cigarettes Smoked Daily: 30 If you are a former smoker, when did you quit?: 2017 Cigars Per Day: 0 Information on smoking cessation initiated: No 'Breaking Loose' booklet given: 01/12/17 Hx Alcohol Use: No Drug/Substance Use Hx: No Substance Use Type: None Hx Substance Use Treatment: No Review of Systems - Review of Systems Comments:: 10/27/18 12:59 Constitutional: Fatigue. Generalized weakness. No fevers, chills, malaise HEENT: No Rhinorrhea, nasal congestion, visual changes Cardiovascular: No chest pain, syncope, palpitations, lightheadedness Respiratory: No Cough, SOB, Hemoptysis, Gastrointestinal: No Abdominal pain, Nausea, Vomiting, Constipation, Diarrhea, Melena Genitourinary: No Dysuria, Frequency, Urgency, Hesitancy, Hematuria, Flank pain Musculoskeletal: No Myalgia, arthralgia Skin: No rashes, itching, bruising, pallor Neurologic: No Headache, Dizziness, Numbness, focal Weakness, or Tingling Psychiatric: No Hallucinations. No SI or HI *Physical Exam - Vital Signs Last Vital Signs Temp Pulse Resp BP Pulse Ox 98 F 88 16 150/72 100 10/27/18 11:07 10/27/18 11:07 10/27/18 11:07 10/27/18 11:07 10/27/18 11:07 - Physical Exam Comments: 10/27/18 12:59 General Appearance: Nourished. Appears Fatigued on exam. No Apparent Distress HEENT: EOMI, NITIN. No Pharyngeal Erythema, Tonsillar Exudate, Tonsillar Erythema Neck: No Cervical Lymphadenopathy Respiratory/Chest: Lungs Clear, Normal Breath Sounds. No Crackles, Rales, Rhonchi, Wheezing Cardiovascular: Regular Rhythm, Regular Rate. No Murmur, Gallops, Rubs Gastrointestinal/Abdominal: Normal Bowel Sounds, Soft. 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 Moderate Sedation - Procedure Monitoring Vital Signs: Procedure Monitoring Vital Signs Temperature 98 F 10/27/18 11:07 Pulse Rate 88 10/27/18 11:07 Respiratory Rate 16 10/27/18 11:07 Blood Pressure 150/72 10/27/18 11:07 O2 Sat by Pulse Oximetry (%) 100 10/27/18 11:07 Heart Score/ECG Review #1 ECG reviewed & interpreted by me at: 12:37 10/27/18 12:37 Sinus Rhythm with 1st degree AV Block Left [place]e Deviation Right Bundle Branch Block HR 89 ED Treatment Course - LABORATORY CBC & Chemistry Diagram: 10/30/18 06:15 10/31/18 05:15 Medical Decision Making - Medical Decision Making 10/27/18 13:00 The patient is a 68 year old male with a history of HTN, HLD, DM, COPD, CAD, GA s/p 9 stents, CVA x2 who presents for evaluation of generalized weakness. Differential includes but is not limited to: ACS, Arrhythmia, COPD exacerbation , UTI, Pneumonia, Infectious, Metabolic Derangement. Given the patient's history and physical exam, we will obtain a cbc, cmp, troponin, bnp, tsh, ua, chest plain film, ekg to evaluate further. We will continue to monitor and reassess while here in the ED. 10/27/18 15:17 CBC demonstrates an elevated wbc to 12. CMP is unremarkable. Troponin is unremarkable. BNP is elevated to 2000s. UA is unremarkable. Chest plain film is unremarkable. Given the patient's multiple medical comorbidities, we believe he requires admission for further work up and monitoring. We discussed the case with the admitting team who accepted the patient for admission. *DC/Admit/Observation/Transfer Diagnosis at time of Disposition: Weakness, History of GA (myocardial infarction) - Discharge Dispostion Condition at time of disposition: Stable Decision to Admit order: Yes - Referrals - Patient Instructions - Post Discharge Activity
[2018-10-27 12:19] LABS: EOS % 0.9 % (0-4.5); HEMATOCRIT 34.3 % (35.4-49); HEMOGLOBIN 11.3 GM/dL (11.7-16.9); MCH 34.6 pg (25.7-33.7); MEAN CELL VOLUME 104.9 fl (80-96); MEAN PLT VOLUME 8.2 fl (7.5-11.1); MONO % 10.1 % (3.8-10.2); PLATELET COUNT 267 K/MM3 (134-434); RBC 3.27 M/mm3 (4.00-5.60); RDW 16.8 % (11.9-15.9); WHITE BLOOD COUNT 12.1 K/mm3 (4.0-10.0)
[2018-10-27 12:59] LABS: ALBUMIN 3.2 g/dl (3.4-5.0); ALK PHOS 94 U/L (45-117); ANION GAP 12 MMOL/L (8-16); BILIRUBIN,TOTAL 0.2 mg/dL (0.2-1); BLOOD UREA NITROGEN 48 mg/dL (7-18); CALCIUM 8.1 mg/dL (8.5-10.1); CHLORIDE 114 mmol/L (98-107); CO2 16 mmol/L (21-32); CREATININE 2.1 mg/dL (0.55-1.3); GLUCOSE,RANDOM 149 mg/dL (74-106); N-TERMINAL BNP 2244.6 pg/ml (5-125); POTASSIUM 4.5 mmol/L (3.5-5.1); SGOT/AST 26 U/L (15-37); SGPT/ALT 14 U/L (13-61); SODIUM 143 mmol/L (136-145); TOT PROT 6.2 g/dl (6.4-8.2)
[2018-10-27 13:12] LABS: ANISOCYTOSIS 1+; MACROCYTOSIS 1+; PLATELET ESTIMATE NORMAL
[2018-10-27] MEDS ORDERED: FUROSEMIDE 40 MG/4 ML INJECTABLE VIAL IVPUSH ONE (13:19)
--- NOTE | 2018-10-27 13:25 | EKG ---
Test Reason : Blood Pressure : / mmHG Vent. Rate : 089 BPM Atrial Rate : 089 BPM P-R Int : 262 ms QRS Dur : 130 ms QT Int : 372 ms P-R-T Axes : 038 -62 034 degrees QTc Int : 452 ms SINUS RHYTHM WITH 1ST DEGREE A-V BLOCK LEFT AXIS DEVIATION RIGHT BUNDLE BRANCH BLOCK INFERIOR INFARCT (CITED ON OR BEFORE 16-SEP-2001) ABNORMAL ECG WHEN COMPARED WITH ECG OF 31-MAY-2018 13:51, NO SIGNIFICANT CHANGE WAS FOUND Confirmed by JOAO MAYEN MD ([id number]) on 10/27/2018 1:24:50 PM Referred By: Confirmed By:JOAO MAYEN MD
[2018-10-27] MEDS ORDERED: FUROSEMIDE 40 MG/4 ML INJECTABLE VIAL ONE (13:27)
[2018-10-27 15:02] LABS: URINE APPEARANCE CLEAR; URINE BILIRUBIN NEGATIVE (<2.0 mg/dL); URINE COLOR COLORLESS; URINE GLUCOSE (UA) NEGATIVE (NEGATIVE); URINE KETONE NEGATIVE (NEGATIVE); URINE LEUK ESTERASE NEGATIVE (NEGATIVE); URINE NITRITE NEGATIVE (NEGATIVE); URINE PROTEIN NEGATIVE (NEGATIVE); URINE UROBILINOGEN NEGATIVE mg/dL (0.2-1.0)
--- NOTE | 2018-10-27 15:10 | PDOC ---
Attending Attestation - [facility] HPI: 10/27/18 15:32 The patient is a 68 year old male with a significant past medical history of hypertension, COPD, CKD, diabetes hyperlipidemia, CVA, CAD,/[place], and CHF who presents to the emergency department with weakness for 1 day. The patient report that he was at home last night when he got up out of bed to use the bathroom . he states that he began to feel an onset of generalized fatigue and weakness while he was sitting on the toilet. He reports that he was having difficulty getting up for about an hour and a half secondary to his weakness. The patient denies any other symptoms. He denies any fever, chills, nausea, vomiting, diarrhea, constipation, or urinary symptoms. He denies any chest pain , shortness of breath, headache or dizziness. The patient denies any other complaints. It is noted that the patient states that he feels tired on exam. Documentation prepared by Robson Hull, acting as special forces medical sergeant for Vivi Bansal MD. <Robson Hull - Last Filed: 10/27/18 15:31> - Resident Resident Name: Saroj Fleming - [facility] HPI: 10/27/18 15:51 I, Dr. Vivi Bansal, attest that the scribes documentation that appears above has been prepared under my direction and personally reviewed by me. I confirmed that the note above accurately reflects all work, treatment, procedures, and medical decision-making performed by me. - Physicial Exam PE: 10/27/18 15:52 HEENT:NCAT GRACIE Neck: supple Lungs: + bs mitra cta Abd: + bs abd soft no guarding or tenderness Ext: no edema Neuro: awake and alert cooperative with exam - Medical Decision Making 10/28/18 00:01 68 y/o male seen and examined at bedside with numerosu medical conditions, presents with malaise , sob. Labs noted above pt with mildly elevated bnp, anemia will admit for serial troponins and diuresis., pt agrees with this dc plan. <Vivi Bansal - Last Filed: 10/28/18 00:03>
[2018-10-27 15:12] LABS: URINE HYALINE CAST 1 /lpf
--- NOTE | 2018-10-27 15:31 | CON.ID ---
Consult Consult Specialty:: infectious diseases Referred by:: Reason for Consultation:: sepsis,weakness - History of Present Illness Chief Complaint: weakness,fatigue History of Present Illness: 68 year old male who comes in with worsening weakness. He states that he has been weak for months, however last night he was sitting on the toilet and it took him 1.5 hours to get up secondary to this. Today he says he was so weak he could not get out of bed. He has been followed as an outpatient and it is thought to be secondary to his worsening cardiac function. He also notes that he is anorexic and when he does eat he throws up. He says it looks like food and denies blood or coffee ground emesis. He has a chronic cough and shortness of breath that is unchanged. 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 Cardio/Vascular: Yes: CHF, HTN, Hyperlipdemia, Hyperlipdemia, [place] Pulmonary: Yes: COPD, O2 Dependent, Pneumonia, Previously Intubated Gastrointestinal: Yes: Other, GERD, Other Renal/: Yes: Renal Inusuff, Other Infectious Disease: Yes: MRSA Psych: Yes: Addictions Musculoskeletal: Yes: Other, Other Endocrine: Yes: Diabetes Mellitus - Past Surgical History Past Surgical History: Yes: Stent (PCIX5) - Alcohol/Substance Use Hx Alcohol Use: No History of Substance Use: reports: None - Smoking History Smoking history: Never smoked Have you smoked in the past 12 months: No Aproximately how many cigarettes per day: 30 If you are a former smoker, when did you quit?: 2017 - Social History Usual Living Arrangement: With Spouse ADL: Independent History of Recent Travel: No Home Medications - Allergies Allergies/Adverse Reactions: Allergies Allergy/AdvReac Type Severity Reaction Status Date / Time lansoprazole [From Prevacid] Allergy Intermediate Verified 05/24/18 07:07 - Home Medications Home Medications: Ambulatory Orders RX: Aspirin [Ecotrin] 81 mg PO DAILY 04/29/15 RX: Pregabalin [Lyrica] 50 mg PO BID 03/13/17 RX: Isosorbide Mononitrate [Isosorbide Mononitrate ER] 30 mg PO DAILY 06/04/17 RX: Acetaminophen [Tylenol .Regular Strength -] 650 mg PO Q4H PRN #90 tablet 10/15 RX: Albuterol 0.083% Nebulizer Clarisse [Ventolin 0.083% Nebulizer Soln -] 1 neb NEB QID PRN 10/04/17 RX: Amlodipine Besylate [Norvasc -] 5 mg PO DAILY #30 tablet 10/09/17 RX: Clopidogrel Bisulfate [Plavix -] 75 mg PO DAILY #30 tablet 10/09/17 RX: Insulin Sliding Scale [Novolog Vial Sliding Scale -] 20 units SQ TID Atorvastatin Ca [Lipitor] 40 mg PO HS 10/29/18 Budesonide/Formeterol Fumarate [SYMBICORT 160/4.5mcg -] 2 puff IH BID 10/29/18 Carvedilol [Coreg] 6.25 mg PO BID 10/29/18 Fluticasone/Salmeterol [Advair Hfa 115-21 Mcg Inhaler] 2 puff IH BID 10/29/18 Furosemide [Lasix] 80 mg PO BID 10/29/18 Hydrocodone/Acetaminophen [Vicodin Hp 10-300 mg Tablet] 10 mg PO Q6H MDD 4 10/29 Insulin Detemir [Levemir Flextouch] 100 unit SQ BID 10/29/18 Lansoprazole [Prevacid] 30 mg PO DAILY 10/29/18 Magnesium Oxide [Magnesium] 400 mg PO DAILY 10/29/18 RX: Hydralazine HCl 10 mg PO BID 10/29/18 RX: Sodium Bicarbonate - 650 mg PO DAILY 10/29/18 Temazepam 30 mg PO BID 10/29/18 Zolpidem Tartrate [Ambien] 10 mg PO HS 10/29/18 Family Disease History - Family Disease History Family Disease History: Diabetes: Grandparent, Father, Mother (CVA, COPD), Sister (COPD), Heart Disease: Mother, CA: Father, Respiratory: Mother, Sister, Other: Mother Review of Systems - Review of Systems Constitutional: reports: Weakness Eyes: reports: No Symptoms HENT: reports: No Symptoms Neck: reports: No Symptoms Cardiovascular: reports: No Symptoms Respiratory: reports: No Symptoms Gastrointestinal: reports: No Symptoms Genitourinary: reports: No Symptoms Musculoskeletal: reports: No Symptoms Integumentary: reports: No Symptoms Neurological: reports: No Symptoms Endocrine: reports: No Symptoms Hematology/Lymphatic: reports: No Symptoms Psychiatric: reports: No Symptoms Physical Exam Vital Signs: Vital Signs Temperature 98 F 10/27/18 11:07 Pulse Rate 88 10/27/18 11:07 Respiratory Rate 16 10/27/18 11:07 Blood Pressure 150/72 10/27/18 11:07 O2 Sat by Pulse Oximetry (%) 100 10/27/18 12:00 Constitutional: Yes: Calm, Mild Distress, Other Eyes: Yes: Conjunctiva Clear HENT: Yes: Atraumatic, Normocephalic Neck: Yes: Supple, Trachea Midline Cardiovascular: Yes: Regular Rate and Rhythm Respiratory: Yes: Regular, CTA Bilaterally, On Nasal O2 Gastrointestinal: Yes: Normal Bowel Sounds, Soft Musculoskeletal: Yes: WNL Extremities: Yes: Other Neurological: Yes: Alert, Oriented Psychiatric: Yes: Alert, Oriented Labs: CBC, BMP 10/27/18 12:07 10/27/18 12:07 Imaging - Results Chest X-ray: Report Reviewed, Image Reviewed X-ray: Report Reviewed, Image Reviewed Assessment/Plan Problem List - Problems (1) Sepsis Code(s): A41.9 - SEPSIS, UNSPECIFIED ORGANISM (2) Renal failure (ARF), acute on chronic Code(s): N17.9 - ACUTE KIDNEY FAILURE, UNSPECIFIED; N18.9 - CHRONIC KIDNEY DISEASE, UNSPECIFIED Qualifiers: Acute renal failure type: unspecified Chronic kidney disease stage: unspecified stage Qualified Code(s): N17.9 - Acute kidney failure, unspecified ; N18.9 - Chronic kidney disease, unspecified (3) Weakness Code(s): R53.1 - WEAKNESS (4) CAD (coronary artery disease) Code(s): I25.10 - ATHSCL HEART DISEASE OF [place] CORONARY ARTERY W/O ANG PCTRS Qualifiers: [place] vs. transplanted heart: [place] heart Associated angina: without angina (5) COPD (chronic obstructive pulmonary disease) Code(s): J44.9 - CHRONIC OBSTRUCTIVE PULMONARY DISEASE, UNSPECIFIED (6) Chronic pain Code(s): G89.29 - OTHER CHRONIC PAIN (7) Congestive heart failure (CHF) Code(s): I50.9 - HEART FAILURE, UNSPECIFIED (8) Diabetes mellitus Code(s): E11.9 - TYPE 2 DIABETES MELLITUS WITHOUT COMPLICATIONS Qualifiers: Diabetes mellitus type: type 2 Diabetes mellitus halfway insulin use: with halfway use Diabetes mellitus complication status: with circulatory complication Diabetes mellitus complication detail: with peripheral angiopathy with gangrene Qualified Code(s): E11.52 - Type 2 diabetes mellitus with diabetic peripheral angiopathy with gangrene (9) Hyperlipidemia Code(s): E78.5 - HYPERLIPIDEMIA, UNSPECIFIED (10) Hypertension Code(s): I10 - ESSENTIAL (PRIMARY) HYPERTENSION Qualifiers: Hypertension type: essential hypertension Qualified Code(s): I10 - Essential (primary) hypertension (11) Metabolic acidosis Code(s): E87.2 - ACIDOSIS plan we will wait for his cx report patient is very 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
[2018-10-27] MEDS ORDERED: ONDANSETRON 4 MG/2 ML VIAL IVPUSH PRN (15:50)
--- NOTE | 2018-10-27 15:58 | HP ---
Admitting History and Physical - Primary Care Physician PCP: iVn Isbell - Admission Chief Complaint: I'm weak History of Present Illness: Mr Scott is a 68 year old male who comes in with worsening weakness. He states that he has been weak for months, however last night he was sitting on the toilet and it took him 1.5 hours to get up secondary to this. Today he says he was so weak he could not get out of bed. He has been followed as an outpatient and it is thought to be secondary to his worsening cardiac function. He also notes that he is anorexic and when he does eat he throws up. He says it looks like food and denies blood or coffee ground emesis. He has a chronic cough and shortness of breath that is unchanged. He denies fevers, chills, lightheadedness , dizziness, passing out, chest pain or pressure, diarrhea, constipation, difficulty or pain on urination, or leg swelling. History Source: Patient Limitations to Obtaining History: No Limitations - Past Medical History [employer]MENT: Yes: CVA, Peripheral Neuropathy Cardiovascular: Yes: CHF, HTN, Hyperlipdemia, Hyperlipdemia, [place] Pulmonary: Yes: COPD, O2 Dependent, Pneumonia, Previously Intubated Gastrointestinal: Yes: Other, GERD, Other Renal/: Yes: Renal Inusuff, Other Infectious Disease: Yes: MRSA Psych: Yes: Addictions Musculoskeletal: Yes: Other, Other Endocrine: Yes: Diabetes Mellitus - Past Surgical History Past Surgical History: Yes: Stent (PCIX5) - Smoking History Smoking history: Former smoker Have you smoked in the past 12 months: No Aproximately how many cigarettes per day: 30 If you are a former smoker, when did you quit?: 2017 - Alcohol/Substance Use Hx Alcohol Use: No History of Substance Use: reports: None - Social History Usual Living Arrangement: Yes: With Spouse ADL: Family Assistance History of Recent Travel: No Home Medications - Allergies Allergies/Adverse Reactions: Allergies Allergy/AdvReac Type Severity Reaction Status Date / Time lansoprazole [From Prevacid] Allergy Intermediate Verified 05/24/18 07:07 - Home Medications Home Medications: Ambulatory Orders Aspirin [Ecotrin] 81 mg PO DAILY 04/29/15 Pregabalin [Lyrica] 50 mg PO BID 03/13/17 Isosorbide Mononitrate [Isosorbide Mononitrate ER] 30 mg PO DAILY 08/06/17 Acetaminophen [Tylenol .Regular Strength -] 650 mg PO Q4H PRN #90 tablet Atorvastatin Ca [Lipitor] 80 mg PO HS #30 tablet 06/10/17 Albuterol 0.083% Nebulizer Clarisse [Ventolin 0.083% Nebulizer Soln -] 1 neb NEB QID PRN 10/04/17 Amlodipine Besylate [Norvasc -] 5 mg PO DAILY #30 tablet 10/09/17 Clopidogrel Bisulfate [Plavix -] 75 mg PO DAILY #30 tablet 10/09/17 Temazepam [Restoril -] 30 mg PO HS #30 capsule MDD 1 tab 10/09/17 Insulin Sliding Scale [Novolog Vial Sliding Scale -] 20 units SQ TID 05/31/18 Psyllium [Metamucil (Sugar-Free) -] 5.85 gm PO DAILY #7 packet 06/01/18 Family Disease History - Family Disease History Family Disease History: Diabetes: Grandparent, Father, Mother (CVA, COPD), Sister (COPD), Heart Disease: Mother, CA: Father, Respiratory: Mother, Sister, Other: Mother Review of Systems Findings/Remarks: Full review of systems obtained, as per HPI and otherwise negative Physical Examination Vital Signs: Vital Signs Temperature 36.7 C 10/27/18 15:44 Pulse Rate 84 10/27/18 15:44 Respiratory Rate 20 10/27/18 15:44 Blood Pressure 142/56 L 10/27/18 15:44 O2 Sat by Pulse Oximetry (%) 98 10/27/18 15:44 Constitutional: Yes: No Distress, Calm, Obese Eyes: Yes: Conjunctiva Clear, EOM Intact, PERRL HENT: Yes: Atraumatic, Normocephalic Cardiovascular: Yes: Regular Rate and Rhythm. No: Gallop, Murmur, Rub Respiratory: Yes: Regular, CTA Bilaterally, Cough. No: Rales, Rhonchi, Wheezes Gastrointestinal: Yes: Normal Bowel Sounds, Soft. No: Distention, Tenderness Extremities: Yes: WNL Edema: No Labs: CBC, BMP 10/27/18 12:07 10/27/18 12:07 Imaging - Results Chest X-ray: Report Reviewed, Image Reviewed Problem List - Problems (1) Sepsis Assessment/Plan: -unclear source -case d/w Dr Viramontes -trial of rocephin Code(s): A41.9 - SEPSIS, UNSPECIFIED ORGANISM (2) Renal failure (ARF), acute on chronic Assessment/Plan: -received lasix in the ED -patient appears euvolemic -recheck in am Code(s): N17.9 - ACUTE KIDNEY FAILURE, UNSPECIFIED; N18.9 - CHRONIC KIDNEY DISEASE, UNSPECIFIED Qualifiers: Acute renal failure type: unspecified Chronic kidney disease stage: unspecified stage Qualified Code(s): N17.9 - Acute kidney failure, unspecified ; N18.9 - Chronic kidney disease, unspecified (3) Weakness Assessment/Plan: -chronic -PT consult Code(s): R53.1 - WEAKNESS (4) CAD (coronary artery disease) Assessment/Plan: -quiescent Code(s): I25.10 - ATHSCL HEART DISEASE OF [place] CORONARY ARTERY W/O ANG PCTRS Qualifiers: [place] vs. transplanted heart: [place] heart Associated angina: without angina (5) COPD (chronic obstructive pulmonary disease) Assessment/Plan: -not in exacerbation -continue home regimen Code(s): J44.9 - CHRONIC OBSTRUCTIVE PULMONARY DISEASE, UNSPECIFIED (6) Chronic pain Assessment/Plan: -continue home regimen Code(s): G89.29 - OTHER CHRONIC PAIN (7) Congestive heart failure (CHF) Assessment/Plan: -will obtain ECHO this admission Code(s): I50.9 - HEART FAILURE, UNSPECIFIED (8) Diabetes mellitus Assessment/Plan: -diabetic diet and SSI Code(s): E11.9 - TYPE 2 DIABETES MELLITUS WITHOUT COMPLICATIONS Qualifiers: Diabetes mellitus type: type 2 Diabetes mellitus long term care pharmacist insulin use: with long term care pharmacist use Diabetes mellitus complication status: with circulatory complication Diabetes mellitus complication detail: with peripheral angiopathy with gangrene Qualified Code(s): E11.52 - Type 2 diabetes mellitus with diabetic peripheral angiopathy with gangrene (9) Hyperlipidemia Assessment/Plan: -continue statin Code(s): E78.5 - HYPERLIPIDEMIA, UNSPECIFIED (10) Hypertension Assessment/Plan: -controlled -continue home regimen Code(s): I10 - ESSENTIAL (PRIMARY) HYPERTENSION Qualifiers: Hypertension type: essential hypertension Qualified Code(s): I10 - Essential (primary) hypertension (11) Metabolic acidosis Assessment/Plan: -unclear cause -will trend Code(s): E87.2 - ACIDOSIS
[2018-10-27] MEDS: HEPARIN NA (PORCINE) 5,000 UNITS/ML 1ML VIAL SQ SCH (18:28)
[2018-10-27] MEDS: CEFTRIAXONE 1 GM in DEXTROSE 5%-WATER - 50 ML IVPB SCH (18:28)
[2018-10-27] MEDS: INSULIN SLIDING SCALE (NOVOLOG) 1 VIAL SQ SCH ×2 (18:28→22:56)
[2018-10-27] MEDS ORDERED: HEPARIN NA (PORCINE) 5,000 UNITS/ML 1ML VIAL ONE (18:30)
[2018-10-27] MEDS ORDERED: CEFTRIAXONE 1 GM/50 ML BAG ONE (18:30)
[2018-10-27] MEDS ORDERED: INSULIN (NOVOLOG) ASPART 100 UNITS/ML 10ML VIAL ONE (18:31)
[2018-10-27] MEDS: TEMAZEPAM 15 MG CAPSULE PO SCH (22:54)
[2018-10-27] MEDS: ATORVASTATIN CA 40 MG TABLET (FP) PO SCH (22:54)
[2018-10-27] MEDS: PREGABALIN 25 MG CAPSULE PO SCH (22:55)
[2018-10-27] MEDS: oxyCODONE HCL 5 MG TABLET PO PRN (22:55)
[2018-10-28] MEDS: HEPARIN NA (PORCINE) 5,000 UNITS/ML 1ML VIAL SQ SCH ×3 (01:26→17:25)
[2018-10-28] MEDS: oxyCODONE HCL 5 MG TABLET PO PRN ×3 (05:46→16:25)
[2018-10-28] MEDS: INSULIN SLIDING SCALE (NOVOLOG) 1 VIAL SQ SCH ×4 (06:10→21:02)
[2018-10-28 07:10] LABS: BASO % 1.7 % (0-2.0); EOS % 2.3 % (0-4.5); HEMATOCRIT 34.1 % (35.4-49); HEMOGLOBIN 10.9 GM/dL (11.7-16.9); LYMPH % 14.5 % (8-40); MCH 33.4 pg (25.7-33.7); MCHC 31.9 g/dl (32.0-35.9); MEAN CELL VOLUME 104.9 fl (80-96); MEAN PLT VOLUME 7.9 fl (7.5-11.1); MONO % 13.8 % (3.8-10.2); NEUT % 67.7 % (42.8-82.8); PLATELET COUNT 238 K/MM3 (134-434); RBC 3.25 M/mm3 (4.00-5.60); RDW 16.5 % (11.9-15.9)
[2018-10-28 07:57] LABS: ANION GAP 14 MMOL/L (8-16); BLOOD UREA NITROGEN 38 mg/dL (7-18); CALCIUM 8.2 mg/dL (8.5-10.1); CHLORIDE 111 mmol/L (98-107); CO2 20 mmol/L (21-32); CREATININE 1.5 mg/dL (0.55-1.3); GLUCOSE,RANDOM 86 mg/dL (74-106); MAGNESIUM 1.8 mg/dL (1.8-2.4); POTASSIUM 3.8 mmol/L (3.5-5.1); SODIUM 145 mmol/L (136-145)
[2018-10-28] MEDS ORDERED: DEXTROSE 5%-WATER - 50 ML IVPB ONE (08:41)
[2018-10-28] MEDS ORDERED: cefTRIAXone SODIUM 1 GM VIAL ONE (08:41)
[2018-10-28] MEDS: amLODIPine BESYLATE 5 MG TABLET (FP) PO SCH (09:19)
[2018-10-28] MEDS: CLOPIDOGREL BISULFATE 75 MG TABLET (FP) PO SCH (09:19)
[2018-10-28] MEDS: CEFTRIAXONE 1 GM in DEXTROSE 5%-WATER - 50 ML IVPB SCH (09:20)
[2018-10-28] MEDS: ISOSORBIDE MONONITRATE 30 MG TAB.SR.24H (FP) PO SCH (09:20)
[2018-10-28] MEDS: PREGABALIN 25 MG CAPSULE PO SCH ×2 (09:20→21:01)
[2018-10-28] MEDS: ASPIRIN COATED 81 MG TABLET.EC PO SCH (09:20)
[2018-10-28] MEDS: ACETAMINOPHEN 325 MG TABLET (FP) PO PRN ×3 (10:11→19:35)
[2018-10-28 10:51] LABS: ANISOCYTOSIS 0; MACROCYTOSIS 0; PLATELET ESTIMATE NORMAL
--- NOTE | 2018-10-28 10:56 | PN ---
Progress Note, Physician Chief Complaint: Mr Scott complains of pain, says his pain regimen is incorrect. Otherwise says he does not know how he feels. Denies cp, sob, n/v. Endorses diarrhea but on closer questioning it is loose stool and not diarrhea. - Current Medication List Current Medications: Active Medications Acetaminophen (Tylenol -) 650 mg PO Q4H PRN PRN Reason: FEVER Last Admin: 10/28/18 10:11 Dose: 650 mg Albuterol Sulfate (Ventolin 0.083% Nebulizer Soln -) 1 amp NEB Q6H PRN PRN Reason: SHORT OF BREATH/WHEEZING Amlodipine Besylate (Norvasc -) 5 mg PO DAILY [facility] Last Admin: 10/28/18 09:19 Dose: 5 mg Aspirin (Ecotrin -) 81 mg PO DAILY [facility] Last Admin: 10/28/18 09:20 Dose: 81 mg Atorvastatin Calcium (Lipitor -) 80 mg PO HS [facility] Last Admin: 10/27/18 22:54 Dose: 80 mg Clopidogrel Bisulfate (Plavix -) 75 mg PO DAILY [facility] Last Admin: 10/28/18 09:19 Dose: 75 mg Heparin Sodium (Porcine) (Heparin -) 5,000 unit SQ Q8H-IV [facility] Last Admin: 10/28/18 09:20 Dose: Not Given Ceftriaxone Sodium 1 gm/ (Dextrose) 50 mls @ 100 mls/hr IVPB DAILY [facility]; Protocol Last Admin: 10/28/18 09:20 Dose: 100 mls/hr Insulin Aspart (Novolog Vial Sliding Scale -) 0 vial SQ ACHS [facility]; Protocol Last Admin: 10/28/18 06:10 Dose: Not Given Isosorbide Mononitrate (Imdur -) 30 mg PO DAILY [facility] Last Admin: 10/28/18 09:20 Dose: 30 mg Ondansetron HCl (Zofran Injection) 4 mg IVPUSH Q6H PRN PRN Reason: NAUSEA Oxycodone HCl (Roxicodone -) 30 mg PO BID [facility] Oxycodone HCl (Roxicodone -) 20 mg PO ONCE ONE Stop: 10/28/18 10:38 Pregabalin (Lyrica -) 50 mg PO BID [facility] Last Admin: 10/28/18 09:20 Dose: 50 mg Temazepam (Restoril -) 30 mg PO HS [facility] Last Admin: 10/27/18 22:54 Dose: 30 mg - Objective Vital Signs: Vital Signs Temperature 36.7 C 10/28/18 06:01 Pulse Rate 73 10/28/18 06:01 Respiratory Rate 20 10/28/18 06:01 Blood Pressure 149/60 10/28/18 06:01 O2 Sat by Pulse Oximetry (%) 100 10/27/18 20:30 Constitutional: Yes: Well Nourished, No Distress, Calm Cardiovascular: Yes: Regular Rate and Rhythm. No: Gallop, Murmur, Rub Respiratory: Yes: Regular, CTA Bilaterally. No: Rales, Rhonchi, Wheezes Gastrointestinal: Yes: Normal Bowel Sounds, Soft. No: Distention, Tenderness Extremities: Yes: WNL Edema: No Labs: CBC, BMP 10/28/18 06:00 10/28/18 06:00 Problem List - Problems (1) Sepsis Code(s): A41.9 - SEPSIS, UNSPECIFIED ORGANISM (2) Renal failure (ARF), acute on chronic Code(s): N17.9 - ACUTE KIDNEY FAILURE, UNSPECIFIED; N18.9 - CHRONIC KIDNEY DISEASE, UNSPECIFIED Qualifiers: Acute renal failure type: unspecified Chronic kidney disease stage: unspecified stage Qualified Code(s): N17.9 - Acute kidney failure, unspecified ; N18.9 - Chronic kidney disease, unspecified (3) Weakness Code(s): R53.1 - WEAKNESS (4) CAD (coronary artery disease) Code(s): I25.10 - ATHSCL HEART DISEASE OF [place] CORONARY ARTERY W/O ANG PCTRS Qualifiers: [place] vs. transplanted heart: [place] heart Associated angina: without angina (5) COPD (chronic obstructive pulmonary disease) Code(s): J44.9 - CHRONIC OBSTRUCTIVE PULMONARY DISEASE, UNSPECIFIED (6) Chronic pain Code(s): G89.29 - OTHER CHRONIC PAIN (7) Congestive heart failure (CHF) Code(s): I50.9 - HEART FAILURE, UNSPECIFIED (8) Diabetes mellitus Code(s): E11.9 - TYPE 2 DIABETES MELLITUS WITHOUT COMPLICATIONS Qualifiers: Diabetes mellitus type: type 2 Diabetes mellitus intermediate project manager insulin use: with intermediate project manager use Diabetes mellitus complication status: with circulatory complication Diabetes mellitus complication detail: with peripheral angiopathy with gangrene Qualified Code(s): E11.52 - Type 2 diabetes mellitus with diabetic peripheral angiopathy with gangrene (9) Hyperlipidemia Code(s): E78.5 - HYPERLIPIDEMIA, UNSPECIFIED (10) Hypertension Code(s): I10 - ESSENTIAL (PRIMARY) HYPERTENSION Qualifiers: Hypertension type: essential hypertension Qualified Code(s): I10 - Essential (primary) hypertension (11) Metabolic acidosis Code(s): E87.2 - ACIDOSIS Assessment/Plan (1) Sepsis Assessment/Plan: -resolved -will d/w Dr Viramontes but suspect does not need antibiotics Code(s): A41.9 - SEPSIS, UNSPECIFIED ORGANISM (2) Renal failure (ARF), acute on chronic Assessment/Plan: -improved today Code(s): N17.9 - ACUTE KIDNEY FAILURE, UNSPECIFIED; N18.9 - CHRONIC KIDNEY DISEASE, UNSPECIFIED Qualifiers: Acute renal failure type: unspecified Chronic kidney disease stage: unspecified stage Qualified Code(s): N17.9 - Acute kidney failure, unspecified ; N18.9 - Chronic kidney disease, unspecified (3) Weakness Assessment/Plan: -chronic -PT consult Code(s): R53.1 - WEAKNESS (4) CAD (coronary artery disease) Assessment/Plan: -quiescent Code(s): I25.10 - ATHSCL HEART DISEASE OF [place] CORONARY ARTERY W/O ANG PCTRS Qualifiers: [place] vs. transplanted heart: [place] heart Associated angina: without angina (5) COPD (chronic obstructive pulmonary disease) Assessment/Plan: -not in exacerbation -continue home regimen Code(s): J44.9 - CHRONIC OBSTRUCTIVE PULMONARY DISEASE, UNSPECIFIED (6) Chronic pain Assessment/Plan: -patient takes oxycodone 30mg bid, confirmed -change to this regimen Code(s): G89.29 - OTHER CHRONIC PAIN (7) Congestive heart failure (CHF) Assessment/Plan: -will obtain ECHO this admission Code(s): I50.9 - HEART FAILURE, UNSPECIFIED (8) Diabetes mellitus Assessment/Plan: -diabetic diet and SSI Code(s): E11.9 - TYPE 2 DIABETES MELLITUS WITHOUT COMPLICATIONS Qualifiers: Diabetes mellitus type: type 2 Diabetes mellitus intermediate project manager insulin use: with intermediate project manager use Diabetes mellitus complication status: with circulatory complication Diabetes mellitus complication detail: with peripheral angiopathy with gangrene Qualified Code(s): E11.52 - Type 2 diabetes mellitus with diabetic peripheral angiopathy with gangrene (9) Hyperlipidemia Assessment/Plan: -continue statin Code(s): E78.5 - HYPERLIPIDEMIA, UNSPECIFIED (10) Hypertension Assessment/Plan: -controlled -continue home regimen Code(s): I10 - ESSENTIAL (PRIMARY) HYPERTENSION Qualifiers: Hypertension type: essential hypertension Qualified Code(s): I10 - Essential (primary) hypertension (11) Metabolic acidosis Assessment/Plan: -improving Code(s): E87.2 - ACIDOSIS
[2018-10-28] MEDS ORDERED: oxyCODONE HCL 5 MG TABLET PO ONE (13:00)
--- NOTE | 2018-10-28 14:43 | PN ---
Progress Note, Physician History of Present Illness: feels better no new issues though says pain in the legs are very bad - Current Medication List Current Medications: Active Medications Acetaminophen (Tylenol -) 650 mg PO Q4H PRN PRN Reason: FEVER Last Admin: 10/28/18 10:11 Dose: 650 mg Albuterol Sulfate (Ventolin 0.083% Nebulizer Soln -) 1 amp NEB Q6H PRN PRN Reason: SHORT OF BREATH/WHEEZING Amlodipine Besylate (Norvasc -) 5 mg PO DAILY [facility] Last Admin: 10/28/18 09:19 Dose: 5 mg Aspirin (Ecotrin -) 81 mg PO DAILY [facility] Last Admin: 10/28/18 09:20 Dose: 81 mg Atorvastatin Calcium (Lipitor -) 80 mg PO HS [facility] Last Admin: 10/27/18 22:54 Dose: 80 mg Clopidogrel Bisulfate (Plavix -) 75 mg PO DAILY [facility] Last Admin: 10/28/18 09:19 Dose: 75 mg Heparin Sodium (Porcine) (Heparin -) 5,000 unit SQ Q8H-IV [facility] Last Admin: 10/28/18 09:20 Dose: Not Given Ceftriaxone Sodium 1 gm/ (Dextrose) 50 mls @ 100 mls/hr IVPB DAILY [facility]; Protocol Last Admin: 10/28/18 09:20 Dose: 100 mls/hr Insulin Aspart (Novolog Vial Sliding Scale -) 0 vial SQ ACHS [facility]; Protocol Last Admin: 10/28/18 11:34 Dose: Not Given Isosorbide Mononitrate (Imdur -) 30 mg PO DAILY [facility] Last Admin: 10/28/18 09:20 Dose: 30 mg Ondansetron HCl (Zofran Injection) 4 mg IVPUSH Q6H PRN PRN Reason: NAUSEA Oxycodone HCl (Roxicodone -) 30 mg PO BID [facility] Oxycodone HCl (Roxicodone -) 10 mg PO Q6H PRN PRN Reason: PAIN LEVEL 6-10 Pregabalin (Lyrica -) 50 mg PO BID [facility] Last Admin: 10/28/18 09:20 Dose: 50 mg Temazepam (Restoril -) 30 mg PO HS [facility] Last Admin: 10/27/18 22:54 Dose: 30 mg - Objective Vital Signs: Vital Signs Temperature 97.5 F L 10/28/18 09:00 Pulse Rate 74 10/28/18 09:00 Respiratory Rate 20 10/28/18 09:00 Blood Pressure 145/70 10/28/18 09:00 O2 Sat by Pulse Oximetry (%) 97 10/28/18 09:00 Constitutional: Yes: Calm, Mild Distress Cardiovascular: Yes: S1, S2 Respiratory: Yes: Regular, Poor Air Entry (bases) Gastrointestinal: Yes: Normal Bowel Sounds, Soft Musculoskeletal: Yes: WNL Extremities: Yes: Other Neurological: Yes: Alert, Oriented Psychiatric: Yes: Alert, Oriented Labs: CBC, BMP 10/28/18 06:00 10/28/18 06:00 Assessment/Plan Problem List - Problems (1) Sepsis Code(s): A41.9 - SEPSIS, UNSPECIFIED ORGANISM (2) Renal failure (ARF), acute on chronic Code(s): N17.9 - ACUTE KIDNEY FAILURE, UNSPECIFIED; N18.9 - CHRONIC KIDNEY DISEASE, UNSPECIFIED Qualifiers: Acute renal failure type: unspecified Chronic kidney disease stage: unspecified stage Qualified Code(s): N17.9 - Acute kidney failure, unspecified ; N18.9 - Chronic kidney disease, unspecified (3) Weakness Code(s): R53.1 - WEAKNESS (4) CAD (coronary artery disease) Code(s): I25.10 - ATHSCL HEART DISEASE OF [place] CORONARY ARTERY W/O ANG PCTRS Qualifiers: [place] vs. transplanted heart: [place] heart Associated angina: without angina (5) COPD (chronic obstructive pulmonary disease) Code(s): J44.9 - CHRONIC OBSTRUCTIVE PULMONARY DISEASE, UNSPECIFIED (6) Chronic pain Code(s): G89.29 - OTHER CHRONIC PAIN (7) Congestive heart failure (CHF) Code(s): I50.9 - HEART FAILURE, UNSPECIFIED (8) Diabetes mellitus Code(s): E11.9 - TYPE 2 DIABETES MELLITUS WITHOUT COMPLICATIONS Qualifiers: Diabetes mellitus type: type 2 Diabetes mellitus longterm insulin use: with supervisor alteration workroom use Diabetes mellitus complication status: with circulatory complication Diabetes mellitus complication detail: with peripheral angiopathy with gangrene Qualified Code(s): E11.52 - Type 2 diabetes mellitus with diabetic peripheral angiopathy with gangrene (9) Hyperlipidemia Code(s): E78.5 - HYPERLIPIDEMIA, UNSPECIFIED (10) Hypertension Code(s): I10 - ESSENTIAL (PRIMARY) HYPERTENSION Qualifiers: Hypertension type: essential hypertension Qualified Code(s): I10 - Essential (primary) hypertension (11) Metabolic acidosis Code(s): E87.2 - ACIDOSIS plan if all cx negative can stop abx continue to monitor await for all cx reports rest as per the team
[2018-10-28] MEDS ORDERED: PT OWN MED DRAWER 7, Y5N ONE (17:32)
[2018-10-28] MEDS ORDERED: RANITIDINE HCL 150 MG TABLET (FP) PO ONE (19:54)
[2018-10-28] MEDS ORDERED: INSULIN (NOVOLOG) ASPART 100 UNITS/ML 10ML VIAL ONE (20:54)
[2018-10-28] MEDS: ATORVASTATIN CA 40 MG TABLET (FP) PO SCH (21:01)
[2018-10-28] MEDS: TEMAZEPAM 15 MG CAPSULE PO SCH (21:01)
[2018-10-28] MEDS: oxyCODONE HCL 5 MG TABLET PO SCH (21:02)
[2018-10-29] MEDS: HEPARIN NA (PORCINE) 5,000 UNITS/ML 1ML VIAL SQ SCH ×3 (01:55→17:41)
[2018-10-29] MEDS: ACETAMINOPHEN 325 MG TABLET (FP) PO PRN ×5 (04:04→21:24)
[2018-10-29] MEDS: oxyCODONE HCL 5 MG TABLET PO PRN ×4 (04:05→21:25)
[2018-10-29] MEDS: ALBUTEROL SO4 0.083% IH SOL 2.5 MG/3 ML VIAL.NEB. NEB PRN ×2 (04:51→20:53)
[2018-10-29] MEDS: INSULIN SLIDING SCALE (NOVOLOG) 1 VIAL SQ SCH ×4 (06:00→21:30)
[2018-10-29 07:30] LABS: BASO % 1.1 % (0-2.0); EOS % 2.8 % (0-4.5); HEMATOCRIT 32.1 % (35.4-49); HEMOGLOBIN 10.1 GM/dL (11.7-16.9); LYMPH % 9.6 % (8-40); MCH 32.8 pg (25.7-33.7); MCHC 31.4 g/dl (32.0-35.9); MEAN CELL VOLUME 104.4 fl (80-96); MEAN PLT VOLUME 7.9 fl (7.5-11.1); MONO % 13.6 % (3.8-10.2); NEUT % 72.9 % (42.8-82.8); PLATELET COUNT 231 K/MM3 (134-434); RBC 3.08 M/mm3 (4.00-5.60); WHITE BLOOD COUNT 9.4 K/mm3 (4.0-10.0)
[2018-10-29 08:02] LABS: ANION GAP 11 MMOL/L (8-16); BLOOD UREA NITROGEN 30 mg/dL (7-18); CALCIUM 8.2 mg/dL (8.5-10.1); CHLORIDE 111 mmol/L (98-107); CO2 20 mmol/L (21-32); CREATININE 1.3 mg/dL (0.55-1.3); GLUCOSE,RANDOM 91 mg/dL (74-106); MAGNESIUM 1.7 mg/dL (1.8-2.4); PHOSPHOROUS 2.8 mg/dL (2.5-4.9); POTASSIUM 3.6 mmol/L (3.5-5.1); SODIUM 143 mmol/L (136-145)
[2018-10-29] MEDS ORDERED: VANCOMYCIN 1,000 MG in DEXTROSE 5%-WATER - 250 ML IVPB ONE (08:24)
[2018-10-29] MEDS: oxyCODONE HCL 5 MG TABLET PO SCH ×2 (08:25→12:37)
[2018-10-29] MEDS: PREGABALIN 25 MG CAPSULE PO SCH ×3 (08:26→21:23)
[2018-10-29] MEDS ORDERED: VANCOMYCIN 1 GRAM (PRE-DOCKED) 1,000 MG/250 ML BAG IVPB ONE (08:40)
[2018-10-29] MEDS ORDERED: MAG HYDROX/AL HYDROX/SIMETH -MYLANTA- ORAL SUSPENSION PO ONE ×2 (09:20→14:30)
[2018-10-29 11:12] LABS: ACANTHOCYTES 1+; ANISOCYTOSIS 1+; MACROCYTOSIS 0; OVALOCYTE 1+; PLATELET ESTIMATE NORMAL
--- NOTE | 2018-10-29 11:18 | PN ---
Progress Note, Physician Chief Complaint: Pt lying in bed in no acute distress. reports feeling weak. Otherwise, denies any chest pain, sob, n/v/d - Current Medication List Current Medications: Active Medications Acetaminophen (Tylenol -) 650 mg PO Q4H PRN PRN Reason: FEVER Last Admin: 10/29/18 08:26 Dose: 650 mg Albuterol Sulfate (Ventolin 0.083% Nebulizer Soln -) 1 amp NEB Q6H PRN PRN Reason: SHORT OF BREATH/WHEEZING Last Admin: 10/29/18 04:51 Dose: 1 amp Amlodipine Besylate (Norvasc -) 5 mg PO DAILY [facility] Last Admin: 10/28/18 09:19 Dose: 5 mg Aspirin (Ecotrin -) 81 mg PO DAILY [facility] Last Admin: 10/28/18 09:20 Dose: 81 mg Atorvastatin Calcium (Lipitor -) 80 mg PO HS [facility] Last Admin: 10/28/18 21:01 Dose: 80 mg Clopidogrel Bisulfate (Plavix -) 75 mg PO DAILY [facility] Last Admin: 10/28/18 09:19 Dose: 75 mg Heparin Sodium (Porcine) (Heparin -) 5,000 unit SQ Q8H-IV [facility] Last Admin: 10/29/18 01:55 Dose: Not Given Ceftriaxone Sodium 1 gm/ (Dextrose) 50 mls @ 100 mls/hr IVPB DAILY [facility]; Protocol Last Admin: 10/28/18 09:20 Dose: 100 mls/hr Insulin Aspart (Novolog Vial Sliding Scale -) 0 vial SQ ACHS [facility]; Protocol Last Admin: 10/29/18 06:00 Dose: Not Given Isosorbide Mononitrate (Imdur -) 30 mg PO DAILY [facility] Last Admin: 10/28/18 09:20 Dose: 30 mg Ondansetron HCl (Zofran Injection) 4 mg IVPUSH Q6H PRN PRN Reason: NAUSEA Oxycodone HCl (Roxicodone -) 30 mg PO BID [facility] Last Admin: 10/29/18 08:25 Dose: 30 mg Oxycodone HCl (Roxicodone -) 10 mg PO Q6H PRN PRN Reason: PAIN LEVEL 6-10 Last Admin: 10/29/18 04:05 Dose: 10 mg Pregabalin (Lyrica -) 50 mg PO BID [facility] Last Admin: 10/29/18 08:26 Dose: 50 mg Temazepam (Restoril -) 30 mg PO HS [facility] Last Admin: 10/28/18 21:01 Dose: 30 mg - Objective Vital Signs: Vital Signs Temperature 97.7 F 10/29/18 06:00 Pulse Rate 66 10/29/18 06:00 Respiratory Rate 20 10/29/18 06:00 Blood Pressure 147/68 10/29/18 06:00 O2 Sat by Pulse Oximetry (%) 98 10/28/18 20:58 Constitutional: Yes: Well Nourished, No Distress, Calm Cardiovascular: Yes: WNL, Regular Rate and Rhythm Respiratory: Yes: Regular, CTA Bilaterally. No: Accessory Muscle Use, Tachypnea , Wheezes Gastrointestinal: Yes: WNL, Normal Bowel Sounds, Soft, Abdomen, Obese. No: Distention, Tenderness, Vomiting Genitourinary: Yes: WNL Extremities: Yes: WNL Edema: Yes Edema: LLE: 1+, RLE: 1+ Neurological: Yes: WNL, Alert, Oriented Psychiatric: Yes: WNL, Alert, Oriented Labs: CBC, BMP 10/29/18 06:15 10/29/18 06:15 Assessment/Plan (1) Sepsis Assessment/Plan: 4/4 blood cultures positive, await sensitivity hemodynamically stable source unclear- uc/chest xray neg echo pending- r/o endocarditis cdiff ordered vanco 1g x 1 ID consult pending Code(s): A41.9 - SEPSIS, UNSPECIFIED ORGANISM Qualifiers: Sepsis type: sepsis due to unspecified organism Qualified Code(s): A41.9 - Sepsis, unspecified organism (2) Renal failure (ARF), acute on chronic Assessment/Plan: improved Code(s): N17.9 - ACUTE KIDNEY FAILURE, UNSPECIFIED; N18.9 - CHRONIC KIDNEY DISEASE, UNSPECIFIED Qualifiers: Acute renal failure type: unspecified Chronic kidney disease stage: unspecified stage Qualified Code(s): N17.9 - Acute kidney failure, unspecified ; N18.9 - Chronic kidney disease, unspecified (3) Weakness Assessment/Plan: chronic PT eval Code(s): R53.1 - WEAKNESS (4) CAD (coronary artery disease) Assessment/Plan: no acute ACS continue home regimen Code(s): I25.10 - ATHSCL HEART DISEASE OF [place] CORONARY ARTERY W/O ANG PCTRS Qualifiers: [place] vs. transplanted heart: [place] heart Associated angina: without angina (5) COPD (chronic obstructive pulmonary disease) Assessment/Plan: stable continue home regimen Code(s): J44.9 - CHRONIC OBSTRUCTIVE PULMONARY DISEASE, UNSPECIFIED (6) Chronic pain Assessment/Plan: home regimen reviewed and updated will change roxicodone to q4hrs prn further management outpt- recommend pain management referral Code(s): G89.29 - OTHER CHRONIC PAIN (7) Congestive heart failure (CHF) Assessment/Plan: pending echo cardiology consulted Code(s): I50.9 - HEART FAILURE, UNSPECIFIED (8) Diabetes mellitus Assessment/Plan: BGM insulin sliding scale diab diet Code(s): E11.9 - TYPE 2 DIABETES MELLITUS WITHOUT COMPLICATIONS Qualifiers: Diabetes mellitus type: type 2 Diabetes mellitus intermediate manager insulin use: with intermediate manager use Diabetes mellitus complication status: with circulatory complication Diabetes mellitus complication detail: with peripheral angiopathy with gangrene Qualified Code(s): E11.52 - Type 2 diabetes mellitus with diabetic peripheral angiopathy with gangrene (9) Hyperlipidemia Assessment/Plan: continue statin Code(s): E78.5 - HYPERLIPIDEMIA, UNSPECIFIED (10) Hypertension Assessment/Plan: controlled continue home regimen Code(s): I10 - ESSENTIAL (PRIMARY) HYPERTENSION Qualifiers: Hypertension type: essential hypertension Qualified Code(s): I10 - Essential (primary) hypertension (11) Metabolic acidosis Assessment/Plan: improved po Na bicarb restarted Code(s): E87.2 - ACIDOSIS (12) Hypomagnesemia Assessment/Plan: mild Mg iv 2g x 1 monitor bmp Code(s): E83.42 - HYPOMAGNESEMIA
[2018-10-29] MEDS ORDERED: MAGNESIUM SULF 50% (8.12 MEQ/2 ML-1 GM VIAL) IVPB ONE (12:00)
--- NOTE | 2018-10-29 12:16 | EKG ---
Test Reason : Blood Pressure : / mmHG Vent. Rate : 069 BPM Atrial Rate : 069 BPM P-R Int : 270 ms QRS Dur : 130 ms QT Int : 438 ms P-R-T Axes : 026 -59 006 degrees QTc Int : 469 ms SINUS RHYTHM WITH 1ST DEGREE A-V BLOCK LEFT AXIS DEVIATION RIGHT BUNDLE BRANCH BLOCK INFERIOR INFARCT (CITED ON OR BEFORE 16-SEP-2001) ANTEROLATERAL INFARCT , AGE UNDETERMINED ABNORMAL ECG WHEN COMPARED WITH ECG OF 27-OCT-2018 11:58, NO SIGNIFICANT CHANGE WAS FOUND Confirmed by ROSALIND BRADLEY, ELISABET ([id number]) on 10/29/2018 12:16:09 PM Referred By: FLORINDA PINEDA Confirmed By:ELISABET BOYER MD
[2018-10-29] MEDS ORDERED: DEXTROSE 5%-WATER - 50 ML IVPB ONE (12:43)
[2018-10-29] MEDS ORDERED: cefTRIAXone SODIUM 1 GM VIAL ONE (12:43)
[2018-10-29] MEDS: ASPIRIN COATED 81 MG TABLET.EC PO SCH (12:56)
[2018-10-29] MEDS: CLOPIDOGREL BISULFATE 75 MG TABLET (FP) PO SCH (12:56)
[2018-10-29] MEDS: ISOSORBIDE MONONITRATE 30 MG TAB.SR.24H (FP) PO SCH (12:56)
[2018-10-29] MEDS: amLODIPine BESYLATE 5 MG TABLET (FP) PO SCH (12:58)
[2018-10-29] MEDS: CEFTRIAXONE 1 GM in DEXTROSE 5%-WATER - 50 ML IVPB SCH (12:58)
--- NOTE | 2018-10-29 13:41 | CON.CARD ---
Cardiology Consult (text) - Consultation Consultation Note: Chief Complaint: weakness History of Present Illness: 68 year old male with a history of dm, ckd (1.5-2), CVA 10/2014, CAD s/p STEMI and multiple pci's, ischemic CM with systolic chf, COPD, extensive smoking history (now quit 12/2016) here with generalized weakness. No cp sob palps dizzy loc pnd orthopnea, le edema. Last saw me in office 2016, poor f/u. 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 No: AFIB Pulmonary: Yes: COPD Gastrointestinal: Yes: Other (Colitis) Renal/: Yes: Renal Inusuff, Other (hyperkalemia) Psych: Yes: Addictions Musculoskeletal: Yes: Other (Lumbar radiculopathy) Endocrine: Yes: Diabetes Mellitus - Past Surgical History Past Surgical History: Yes: Stent - Alcohol/Substance Use Hx Alcohol Use: No History of Substance Use: reports: None - Smoking History Smoking history: ex tob - Social History Usual Living Arrangement: With Spouse ADL: Independent History of Recent Travel: No Home Medications - Allergies Allergies/Adverse Reactions: Allergies Allergy/AdvReac Type Severity Reaction Status Date / Time lansoprazole [From Prevacid] Allergy Intermediate Verified 05/24/18 07:07 - Home Medications Home Medications Medication Instructions Recorded Aspirin [Ecotrin] 81 mg PO DAILY 04/29/15 Pregabalin [Lyrica] 50 mg PO BID 03/13/17 Isosorbide Mononitrate [Isosorbide 30 mg PO DAILY 06/04/17 Mononitrate ER] Acetaminophen [Tylenol .Regular 650 mg PO Q4H PRN #90 tablet 06/10/17 Strength -] Atorvastatin Ca [Lipitor] 80 mg PO HS #30 tablet 06/10/17 Albuterol 0.083% Nebulizer Clarisse 1 neb NEB QID PRN 10/04/17 [Ventolin 0.083% Nebulizer Soln -] Amlodipine Besylate [Norvasc -] 5 mg PO DAILY #30 tablet 10/09/17 Clopidogrel Bisulfate [Plavix -] 75 mg PO DAILY #30 tablet 10/09/17 Temazepam [Restoril -] 30 mg PO HS #30 capsule MDD 1 tab 10/09/17 Insulin Sliding Scale [Novolog 20 units SQ TID 05/31/18 Vial Sliding Scale -] Psyllium [Metamucil (Sugar-Free) -] 5.85 gm PO DAILY #7 packet 06/01/18 Family Disease History - Family Disease History Family Disease History: Diabetes: Grandparent, Sister (COPD), CA: Father, Respiratory: Sister, Other: Mother (CVA) Review of Systems - Review of Systems per hpi; no nvd, salas, vision changes, gib, hematuria, dysuria, muscle pain Physical Exam Vital Signs: Vital Signs Period Temp Pulse Resp BP Sys/Chandra Pulse Ox Last 24 Hr 97.7 F-98.3 F 64-69 20-20 121-147/66-70 98 nad no jvd rrr s1s2 no mrg cta bl nl eff aaox3 no le e/c/c abd nt nd pos bs no jaundice diaphoresis pos dp pt no carotid bruits Laboratory Last Values WBC 9.4 K/mm3 (4.0-10.0) 10/29/18 06:15 RBC 3.08 M/mm3 (4.00-5.60) L 10/29/18 06:15 Hgb 10.1 GM/dL (11.7-16.9) L 10/29/18 06:15 Hct 32.1 % (35.4-49) L 10/29/18 06:15 MCV 104.4 fl (80-96) H 10/29/18 06:15 MCH 32.8 pg (25.7-33.7) 10/29/18 06:15 MCHC 31.4 g/dl (32.0-35.9) L 10/29/18 06:15 RDW 16.0 % (11.9-15.9) H 10/29/18 06:15 Plt Count 231 K/MM3 (134-434) 10/29/18 06:15 MPV 7.9 fl (7.5-11.1) 10/29/18 06:15 Absolute Neuts (auto) 6.8 K/mm3 (1.5-8.0) 10/29/18 06:15 Neutrophils % 72.9 % (42.8-82.8) 10/29/18 06:15 Neutrophils % (Manual) 69.1 % (42.8-82.8) 10/29/18 06:15 Band Neutrophils % 0.0 % 10/29/18 06:15 Lymphocytes % 9.6 % (8-40) D 10/29/18 06:15 Lymphocytes % (Manual) 9.3 % (8-40) D 10/29/18 06:15 Monocytes % 13.6 % (3.8-10.2) H 10/29/18 06:15 Monocytes % (Manual) 15 % (3.8-10.2) H 10/29/18 06:15 Eosinophils % 2.8 % (0-4.5) 10/29/18 06:15 Eosinophils % (Manual) 0.0 % (0-4.5) D 10/29/18 06:15 Basophils % 1.1 % (0-2.0) 10/29/18 06:15 Basophils % (Manual) 0.0 % (0-2.0) 10/29/18 06:15 Myelocytes % (Man) 0 % (0-2) D 10/29/18 06:15 Promyelocytes % (Man) 0 % (0-2) 10/29/18 06:15 Blast Cells % (Manual) 0 % (0-0) 10/29/18 06:15 Nucleated RBC % 0 % (0-0) 10/29/18 06:15 Metamyelocytes 0 % (0-2) D 10/29/18 06:15 Hypochromia 0 10/29/18 06:15 Platelet Estimate Normal 10/29/18 06:15 Polychromasia 1+ 10/29/18 06:15 Poikilocytosis 0 10/29/18 06:15 Basophilic Stippling 1+ 10/28/18 06:00 Anisocytosis 1+ 10/29/18 06:15 Microcytosis 1+ 10/29/18 06:15 Macrocytosis 0 10/29/18 06:15 Spherocytes 1+ 10/29/18 06:15 Ovalocytes 1+ 10/29/18 06:15 Acanthocytes (Spur) 1+ 10/29/18 06:15 Sodium 143 mmol/L (136-145) 10/29/18 06:15 Potassium 3.6 mmol/L (3.5-5.1) 10/29/18 06:15 Chloride 111 mmol/L (98-107) H 10/29/18 06:15 Carbon Dioxide 20 mmol/L (21-32) L 10/29/18 06:15 Anion Gap 11 MMOL/L (8-16) 10/29/18 06:15 BUN 30 mg/dL (7-18) H 10/29/18 06:15 Creatinine 1.3 mg/dL (0.55-1.3) 10/29/18 06:15 Creat Clearance w eGFR 54.57 (>60) 10/29/18 06:15 POC Glucometer 102 UNITS (80-120) 10/29/18 05:21 Random Glucose 91 mg/dL (74-106) 10/29/18 06:15 Calcium 8.2 mg/dL (8.5-10.1) L 10/29/18 06:15 Phosphorus 2.8 mg/dL (2.5-4.9) 10/29/18 06:15 Magnesium 1.7 mg/dL (1.8-2.4) L 10/29/18 06:15 Total Bilirubin 0.2 mg/dL (0.2-1) 10/27/18 12:07 AST 26 U/L (15-37) 10/27/18 12:07 ALT 14 U/L (13-61) 10/27/18 12:07 Alkaline Phosphatase 94 U/L (45-117) 10/27/18 12:07 Creatine Kinase 356 IU/L (26-308) H 10/27/18 12:07 Creatine Kinase Index 0.8 % (0.0-5.0) 10/27/18 12:07 CK-MB (CK-2) 2.9 ng/mL (0.5-3.6) 10/27/18 12:07 Troponin I 0.02 ng/ml (0.00-0.05) 10/27/18 12:07 B-Natriuretic Peptide 2244.6 pg/ml (5-125) H 10/27/18 12:07 Total Protein 6.2 g/dl (6.4-8.2) L 10/27/18 12:07 Albumin 3.2 g/dl (3.4-5.0) L 10/27/18 12:07 TSH 0.43 uIU/ml (0.358-3.74) 10/27/18 12:07 Urine Color Colorless 10/27/18 14:51 Urine Appearance Clear 10/27/18 14:51 Urine pH 5.0 (5.0-8.0) 10/27/18 14:51 Ur Specific [place] 1.006 (1.010-1.035) L 10/27/18 14:51 Urine Protein Negative (NEGATIVE) 10/27/18 14:51 Urine Glucose (UA) Negative (NEGATIVE) 10/27/18 14:51 Urine Ketones Negative (NEGATIVE) 10/27/18 14:51 Urine Blood 2+ (NEGATIVE) H 10/27/18 14:51 Urine Nitrite Negative (NEGATIVE) 10/27/18 14:51 Urine Bilirubin Negative (<2.0 mg/dL) 10/27/18 14:51 Urine Urobilinogen Negative mg/dL (0.2-1.0) 10/27/18 14:51 Ur Leukocyte Esterase Negative (NEGATIVE) 10/27/18 14:51 Urine WBC (Auto) None /hpf (3-5) 10/27/18 14:51 Urine RBC (Auto) 3 /hpf (0-3) 10/27/18 14:51 Hyaline Casts 1 /lpf 10/27/18 14:51 Influenza A (Rapid) Negative 10/27/18 15:43 Influenza B (Rapid) Negative 10/27/18 15:43 ecg: sr, 1avb, rbbb. inf q's C 05/15: 70-80% mRCA (ISR), 70-80% RPDA (ISR); 70-80% mLAD; 80-90% pLCX (small vessel); 90-95% OM2 (large vessel); 80-90% prox Ramus (large vessel) ...nonobstructive dz of note [id number]% ostial RCA, 50-60% eccentric lesion OM1 (large vessel); EDP 30-->25 post-nitro EF 38% (diffuse WMAs) Syntax score 20 Echo 05/15: mod to sev decr LVEF; severe hypokinesis of all lindsey except basal segments. nl RV. mild MR/TR. no peric eff. echo 01/2017: mild global HK, lvef 45-50, nl rv, nl rvsp, mild lae, mild tr repeat Echo 01/17/17: --images reviewed by Dr. Mckeon: no vegetation seen; redundant, highly mobile anterior chorda to anterior MV leaflet--cannot definitively exclude vegetation attached to chord though not highly suspicious. no AV or TV vege seen. no MR/TR/AI. EF mod-severely decr'd, ? global (cannot accurately assess for RWMAs)--suspect EF is 35-40%. RV normal size, fxn not well visualized. Echo 12/2016: TDS; LVSF is "at least mildly reduced: RWM assessment tds; nl RV; nl LA; mild MR/TR; no veg seen Echo 04/2015: mod global HK; RV tds; trace AI Echo 01/2014: moderate, global LV hypokinesis; nl RV size with hypokinesis; no signif valve dysfxn cxr: central congestion a/p: 68 year old male with a history of dm, ckd (1.5-2), CVA 10/2014, CAD s/p STEMI and multiple pci's, ischemic CM with systolic chf, COPD, extensive smoking history (now quit 12/2016) here with generalized weakness. generalized weakness: -on abx, infectious w/u per pmd/ID CAD: -s/p PCI (LIBBY) to 100% occl RPDA in 2004 ([place]) with patent prior RCA stents at that time, EF 50% then; -s/p anterior STEMI 2011 with [place] LIBBY x 2 to mid LAD then ([place]); residual dz then included 80% prox D1 (large vessel), 95% mD1; 70%mRCA (pre and post prior stents), 70% dCFX; (also 40% RPDA; 60% pCFX; 40% mCFX;) EF then 37% with AK of apex/AL lindsey and AK of IW; -s/p NSTEMI 05/15 in setting of sepsis/PNA possible trigger-->cath-->LHC 05/15: 70 -80% mRCA (ISR), 70-80% RPDA (ISR); 70-80% mLAD; 80-90% pLCX (small vessel); 90- 95% OM2 (large vessel); 80-90% prox Ramus (large vessel)...nonobstructive dz of note [id number]% ostial RCA, 50-60% eccentric lesion OM1 (large vessel); -extensive multivessel CAD at cath (as above)--pt offered cabg at [place] but he declined, was discharged home 04/2017. Then pt reconsidered but discussed case with [facility] and they wanted him to have improved functional status prior to cabg as in his state of debilitation he will be higher risk for surgical complications/poor post op recovery. At that time pt again decided against cabg. Since then he has not followed up with cardio, missed his appts. -on ASA and plavix from before (for recurrent CVAs), cont same -on BB, statin, imdur at home, resumed here -no signs acs isch CMP/ chronic syst CHF: -moderately decr'd EF 05/15 -cont home coreg, imdur, hydralazine for chf regimen -pt was on wendy-i in past, creat went up to 2.5 so it was stopped. given pt's repeated failure to follow up regularly in office with us, i would not rec resuming WENDY trial as he will need very frequent outpt labs monitoring. if he decides to follow with cardio regularly, can try lower effective dose (e.g. lisinopril 2.5) than what he was previously on, and try titrate up slowly. currently on alternative hydral/imdur combo. con't for now. -currently vol depleted with brant on admit so holding lasix. Was on 80 po lasix bid at home. Will likely need to decrease dose when cr stable with outpt f/u. -repeat echo pending HTN: -cont current meds h/o CVA: -dx'd lacunar infarct 02/10 clinically then (slurred speech) -? acute CVA/TIA 11/13, seen by neuro then--ASA added to prior plavix at that time -same meds BRANT on CKD: -cr freq fluctuates 1.5-2.9 on past admits here -currently with brant on admit, improving abnl ecg, mobitz I 2nd degree AVB, chronic: -seen on tele here on several occasions, no significant pauses, benign. HPL: -cont statin
--- NOTE | 2018-10-29 15:20 | ECHO ---
Name: MERVAT COX Exam:Adult Echocardiogram Study Date: 10/29/2018 12:48 PM Age: 68 yrs Reason For Study: CHF Height: 68 in Weight: 178 lb BSA: 1.9 m2 MMode/2D Measurements & Calculations IVSd: 1.0 cm Ao root diam: 4.1 cm LVIDd: 6.6 cm LA dimension: 3.4 cm LVIDs: 4.2 cm ACS: 1.9 cm LVPWd: 0.89 cm IVSs: 1.3 cm LVPWs: 1.1 cm EDV(Teich): 226.9 ml ESV(Teich): 79.9 ml Doppler Measurements & Calculations MV E max meño: 85.6 cm/sec Ao V2 max: 156.8 cm/sec MV A max meño: 131.0 cm/sec Ao max P.8 mmHg MV E/A: 0.65 Ao V2 mean: 104.7 cm/sec Ao mean P.0 mmHg Ao V2 VTI: 31.5 cm Med Peak E' Meño: 11.5 cm/sec Med E/e': 7.4 Lat Peak E' Meño: 7.5 cm/sec Lat E/e': 11.4 Procedure A complete two-dimensional transthoracic echocardiogram was performed (2D, M-mode, Doppler and color flow Doppler). Technically limited study. Left Ventricle The left ventricle is moderately dilated. Left ventricular systolic function is mildly reduced. Eject ion Fraction = 45-50%. There is mild global hypokinesis of the left ventricle. Right Ventricle The right ventricle is not well visualized. Atria The left atrial size is normal. Right atrium not well visualized. Mitral Valve There is mild mitral annular calcification. There is no mitral regurgitation noted. Tricuspid Valve The tricuspid valve is normal in structure and function. There is mild tricuspid regurgitation. Aortic Valve There is mild aortic sclerosis.;. No aortic regurgitation is present. Pulmonic Valve The pulmonic valve is not well visualized. Great Vessels Mild aortic root dilatation. Pericardium/Pleura There is no pericardial effusion. Interpretation Summary Technically limited study The left ventricle is moderately dilated. Left ventricular systolic function is mildly reduced. There is mild global hypokinesis of the left ventricle. Ejection Fraction = 45-50%. The right ventricle is not well visualized. The left atrial size is normal. Right atrium not well visualized. There is mild mitral annular calcification. There is mild tricuspid regurgitation. There is mild aortic sclerosis. Mild aortic root dilatation. There is no pericardial effusion. Previous study is not available for comparison Fabricio Morales MD 10/29/2018 03:20 PM
[2018-10-29] MEDS ORDERED: MAG HYDROX/AL HYDROX/SIMETH 30 ML UNIT-DOSE CUP PO ONE (16:45)
--- NOTE | 2018-10-29 17:43 | PN ---
Progress Note, Physician History of Present Illness: pain main issues says pain not being controlled - Current Medication List Current Medications: Active Medications Acetaminophen (Tylenol -) 650 mg PO Q4H PRN PRN Reason: FEVER Last Admin: 10/29/18 12:55 Dose: 650 mg Albuterol Sulfate (Ventolin 0.083% Nebulizer Soln -) 1 amp NEB Q6H PRN PRN Reason: SHORT OF BREATH/WHEEZING Last Admin: 10/29/18 04:51 Dose: 1 amp Amlodipine Besylate (Norvasc -) 5 mg PO DAILY [facility] Last Admin: 10/29/18 12:58 Dose: 5 mg Aspirin (Ecotrin -) 81 mg PO DAILY [facility] Last Admin: 10/29/18 12:56 Dose: 81 mg Atorvastatin Calcium (Lipitor -) 40 mg PO HS [facility] Budesonide/Formoterol Fumarate (Symbicort 160/4.5mcg -) 2 puff IH BID [facility] Carvedilol (Coreg -) 6.25 mg PO BID [facility] Clopidogrel Bisulfate (Plavix -) 75 mg PO DAILY [facility] Last Admin: 10/29/18 12:56 Dose: 75 mg Heparin Sodium (Porcine) (Heparin -) 5,000 unit SQ Q8H-IV [facility] Last Admin: 10/29/18 12:59 Dose: 5,000 unit Hydralazine HCl (Apresoline -) 10 mg PO BID [facility] Ceftriaxone Sodium 1 gm/ (Dextrose) 50 mls @ 100 mls/hr IVPB DAILY [facility]; Protocol Last Admin: 10/29/18 12:58 Dose: 100 mls/hr Insulin Aspart (Novolog Vial Sliding Scale -) 0 vial SQ ACHS [facility]; Protocol Last Admin: 10/29/18 06:00 Dose: Not Given Isosorbide Mononitrate (Imdur -) 30 mg PO DAILY [facility] Last Admin: 10/29/18 12:56 Dose: 30 mg Magnesium Oxide (Mag-Ox -) 400 mg PO DAILY [facility] Ondansetron HCl (Zofran Injection) 4 mg IVPUSH Q6H PRN PRN Reason: NAUSEA Oxycodone HCl (Roxicodone -) 30 mg PO Q4H PRN PRN Reason: PAIN LEVEL 6-10 Pregabalin (Lyrica -) 50 mg PO BID [facility] Last Admin: 10/29/18 12:36 Dose: Not Given Sodium Bicarbonate (Sodium Bicarbonate -) 650 mg PO DAILY [facility] Temazepam (Restoril -) 30 mg PO HS [facility] Last Admin: 10/28/18 21:01 Dose: 30 mg - Objective Vital Signs: Vital Signs Temperature 98.6 F 10/29/18 14:40 Pulse Rate 68 10/29/18 14:40 Respiratory Rate 20 10/29/18 14:40 Blood Pressure 151/71 10/29/18 14:40 O2 Sat by Pulse Oximetry (%) 98 10/28/18 20:58 Constitutional: Yes: Calm, Mild Distress Cardiovascular: Yes: S1, S2 Gastrointestinal: Yes: Normal Bowel Sounds Musculoskeletal: Yes: WNL Extremities: Yes: Other Neurological: Yes: Alert, Oriented Psychiatric: Yes: Alert, Oriented Labs: CBC, BMP 10/29/18 06:15 10/29/18 06:15 Assessment/Plan Problem List - Problems (1) Sepsis Code(s): A41.9 - SEPSIS, UNSPECIFIED ORGANISM (2) Renal failure (ARF), acute on chronic Code(s): N17.9 - ACUTE KIDNEY FAILURE, UNSPECIFIED; N18.9 - CHRONIC KIDNEY DISEASE, UNSPECIFIED Qualifiers: Acute renal failure type: unspecified Chronic kidney disease stage: unspecified stage Qualified Code(s): N17.9 - Acute kidney failure, unspecified ; N18.9 - Chronic kidney disease, unspecified (3) Weakness Code(s): R53.1 - WEAKNESS (4) CAD (coronary artery disease) Code(s): I25.10 - ATHSCL HEART DISEASE OF [place] CORONARY ARTERY W/O ANG PCTRS Qualifiers: [place] vs. 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: with [facility] use Diabetes mellitus complication status: with circulatory complication Diabetes mellitus complication detail: with peripheral angiopathy with gangrene Qualified Code(s): E11.52 - Type 2 diabetes mellitus with diabetic peripheral angiopathy with gangrene (9) Hyperlipidemia Code(s): E78.5 - HYPERLIPIDEMIA, UNSPECIFIED (10) Hypertension Code(s): I10 - ESSENTIAL (PRIMARY) HYPERTENSION Qualifiers: Hypertension type: essential hypertension Qualified Code(s): I10 - Essential (primary) hypertension (11) Metabolic acidosis Code(s): E87.2 - ACIDOSIS 12 gm positive bacteremia plan will continue vanco await for repeat cx await for identification of the organism rest as per the team
[2018-10-29] MEDS ORDERED: INSULIN (NOVOLOG) ASPART 100 UNITS/ML 10ML VIAL ONE (18:41)
[2018-10-29] MEDS: VANCOMYCIN 1,250 MG in DEXTROSE 5%-WATER - 250 ML IVPB SCH (20:59)
[2018-10-29] MEDS: TEMAZEPAM 15 MG CAPSULE PO SCH (21:23)
[2018-10-29] MEDS: CARVEDILOL 6.25 MG TABLET (FP) PO SCH (21:24)
[2018-10-29] MEDS: ATORVASTATIN CA 40 MG TABLET (FP) PO SCH (21:24)
[2018-10-29] MEDS: hydrALAZINE HCL 10 MG TABLET PO SCH (21:24)
[2018-10-29] MEDS: BUDESONIDE/FORMETEROL FUMARATE 160/4.5 mcg INHALER IH SCH (21:25)
[2018-10-30] MEDS: oxyCODONE HCL 5 MG TABLET PO PRN ×6 (01:37→21:50)
[2018-10-30] MEDS: ACETAMINOPHEN 325 MG TABLET (FP) PO PRN ×6 (01:38→21:49)
[2018-10-30] MEDS: HEPARIN NA (PORCINE) 5,000 UNITS/ML 1ML VIAL SQ SCH ×3 (01:43→17:05)
[2018-10-30] MEDS: INSULIN SLIDING SCALE (NOVOLOG) 1 VIAL SQ SCH ×4 (06:05→21:49)
[2018-10-30 07:34] LABS: BASO % 1.9 % (0-2.0); EOS % 4.8 % (0-4.5); HEMATOCRIT 29.5 % (35.4-49); HEMOGLOBIN 9.4 GM/dL (11.7-16.9); MCH 33.1 pg (25.7-33.7); MCHC 31.9 g/dl (32.0-35.9); MEAN CELL VOLUME 103.6 fl (80-96); MEAN PLT VOLUME 7.9 fl (7.5-11.1); MONO % 14.9 % (3.8-10.2); NEUT % 65.4 % (42.8-82.8); PLATELET COUNT 229 K/MM3 (134-434); RBC 2.85 M/mm3 (4.00-5.60); RDW 15.7 % (11.9-15.9); WHITE BLOOD COUNT 8.3 K/mm3 (4.0-10.0)
[2018-10-30] MEDS: ALBUTEROL SO4 0.083% IH SOL 2.5 MG/3 ML VIAL.NEB. NEB PRN ×2 (07:36→20:45)
[2018-10-30 08:04] LABS: ANION GAP 10 MMOL/L (8-16); BLOOD UREA NITROGEN 24 mg/dL (7-18); CALCIUM 7.7 mg/dL (8.5-10.1); CHLORIDE 111 mmol/L (98-107); CO2 22 mmol/L (21-32); CREATININE 1.4 mg/dL (0.55-1.3); GLUCOSE,RANDOM 123 mg/dL (74-106); POTASSIUM 3.6 mmol/L (3.5-5.1); SODIUM 142 mmol/L (136-145)
[2018-10-30] MEDS ORDERED: cefTRIAXone SODIUM 1 GM VIAL ONE (08:46)
[2018-10-30] MEDS ORDERED: DEXTROSE 5%-WATER - 50 ML IVPB ONE (08:46)
[2018-10-30] MEDS: CEFTRIAXONE 1 GM in DEXTROSE 5%-WATER - 50 ML IVPB SCH (09:12)
[2018-10-30] MEDS: PREGABALIN 25 MG CAPSULE PO SCH ×2 (09:12→21:49)
[2018-10-30] MEDS: SODIUM BICARBONATE 650 MG TABLET PO SCH (09:12)
[2018-10-30] MEDS: amLODIPine BESYLATE 5 MG TABLET (FP) PO SCH (09:12)
[2018-10-30] MEDS: MAGNESIUM OXIDE 400 MG TABLET (FP) PO SCH (09:13)
[2018-10-30] MEDS: CARVEDILOL 6.25 MG TABLET (FP) PO SCH ×2 (09:13→21:48)
[2018-10-30] MEDS: ISOSORBIDE MONONITRATE 30 MG TAB.SR.24H (FP) PO SCH (09:13)
[2018-10-30] MEDS: CLOPIDOGREL BISULFATE 75 MG TABLET (FP) PO SCH (09:13)
[2018-10-30] MEDS: BUDESONIDE/FORMETEROL FUMARATE 160/4.5 mcg INHALER IH SCH ×2 (09:13→21:52)
[2018-10-30] MEDS: ASPIRIN COATED 81 MG TABLET.EC PO SCH (09:13)
[2018-10-30] MEDS: hydrALAZINE HCL 10 MG TABLET PO SCH ×2 (09:13→21:48)
--- NOTE | 2018-10-30 10:42 | PN ---
Progress Note, Physician Chief Complaint: weakness History of Present Illness: feels stronger. no sob, orthopnea, cp. no palpit - Current Medication List Current Medications: Active Medications Acetaminophen (Tylenol -) 650 mg PO Q4H PRN PRN Reason: FEVER Last Admin: 10/30/18 09:53 Dose: 650 mg Albuterol Sulfate (Ventolin 0.083% Nebulizer Soln -) 1 amp NEB Q6H PRN PRN Reason: SHORT OF BREATH/WHEEZING Last Admin: 10/30/18 07:36 Dose: 1 amp Amlodipine Besylate (Norvasc -) 5 mg PO DAILY [facility] Last Admin: 10/30/18 09:12 Dose: 5 mg Aspirin (Ecotrin -) 81 mg PO DAILY [facility] Last Admin: 10/30/18 09:13 Dose: 81 mg Atorvastatin Calcium (Lipitor -) 40 mg PO HS [facility] Last Admin: 10/29/18 21:24 Dose: 40 mg Budesonide/Formoterol Fumarate (Symbicort 160/4.5mcg -) 2 puff IH BID [facility] Last Admin: 10/30/18 09:13 Dose: 2 puff Carvedilol (Coreg -) 6.25 mg PO BID [facility] Last Admin: 10/30/18 09:13 Dose: 6.25 mg Clopidogrel Bisulfate (Plavix -) 75 mg PO DAILY [facility] Last Admin: 10/30/18 09:13 Dose: 75 mg Heparin Sodium (Porcine) (Heparin -) 5,000 unit SQ Q8H-IV [facility] Last Admin: 10/30/18 09:13 Dose: 5,000 unit Hydralazine HCl (Apresoline -) 10 mg PO BID [facility] Last Admin: 10/30/18 09:13 Dose: 10 mg Ceftriaxone Sodium 1 gm/ (Dextrose) 50 mls @ 100 mls/hr IVPB DAILY [facility]; Protocol Last Admin: 10/30/18 09:12 Dose: 100 mls/hr Vancomycin HCl 1,250 mg/ (Dextrose) 250 mls @ 250 mls/2 hr IVPB Q24H [facility]; Protocol Last Admin: 10/29/18 20:59 Dose: Not Given Insulin Aspart (Novolog Vial Sliding Scale -) 0 vial SQ ACHS [facility]; Protocol Last Admin: 10/30/18 06:05 Dose: Not Given Isosorbide Mononitrate (Imdur -) 30 mg PO DAILY [facility] Last Admin: 10/30/18 09:13 Dose: 30 mg Magnesium Oxide (Mag-Ox -) 400 mg PO DAILY [facility] Last Admin: 10/30/18 09:13 Dose: 400 mg Ondansetron HCl (Zofran Injection) 4 mg IVPUSH Q6H PRN PRN Reason: NAUSEA Oxycodone HCl (Roxicodone -) 30 mg PO Q4H PRN PRN Reason: PAIN LEVEL 6-10 Last Admin: 10/30/18 09:54 Dose: 30 mg Pregabalin (Lyrica -) 50 mg PO BID [facility] Last Admin: 10/30/18 09:12 Dose: 50 mg Sodium Bicarbonate (Sodium Bicarbonate -) 650 mg PO DAILY [facility] Last Admin: 10/30/18 09:12 Dose: 650 mg Temazepam (Restoril -) 30 mg PO HS [facility] Last Admin: 10/29/18 21:23 Dose: 30 mg - Objective Vital Signs: Vital Signs Temperature 98.2 F 10/30/18 09:00 Pulse Rate 62 10/30/18 09:00 Respiratory Rate 18 10/30/18 09:00 Blood Pressure 147/79 10/30/18 09:00 O2 Sat by Pulse Oximetry (%) 95 10/30/18 09:00 Constitutional: Yes: Well Nourished, No Distress, Calm Cardiovascular: Yes: Regular Rate and Rhythm (decr intensity), S1, S2. No: JVD , Gallop, Murmur Respiratory: Yes: Regular, CTA Bilaterally. No: Accessory Muscle Use, Wheezes Extremities: No: Cold Edema: No Neurological: Yes: Alert, Oriented Psychiatric: No: Agitated Labs: CBC, BMP 10/30/18 06:15 10/30/18 06:15 Assessment/Plan ecg: sr, 1avb, rbbb. inf q's CXR: central congestion [facility] 05/15: 70-80% mRCA (ISR), 70-80% RPDA (ISR); 70-80% mLAD; 80-90% pLCX (small vessel); 90-95% OM2 (large vessel); 80-90% prox Ramus (large vessel) ...nonobstructive dz of note -65% ostial RCA, 50-60% eccentric lesion OM1 (large vessel); EDP 30-->25 post-nitro EF 38% (diffuse WMAs) Syntax score 20 Echo 10/29/18: mod LVE, mild global LV hypo (45-50%). RV tds. mild TR. no vegetations noted Echo 05/15: mod to sev decr LVEF; severe hypokinesis of all lindsey except basal segments. nl RV. mild MR/TR. no peric eff. Echo 01/2017: mild global HK, lvef 45-50, nl rv, nl rvsp, mild lae, mild tr a/p: 68 year old male with a history of dm, ckd (1.5-2), CVA 10/2014, CAD s/p STEMI and multiple pci's, ischemic CM with systolic chf, COPD, extensive smoking history (now quit 12/2016) here with generalized weakness. generalized weakness, + blood cultures staph epi (x2): -on abx per ID -no valve dysfunction or vege on echo here, further w/u per ID rec.s CAD: -2004 s/p PCI (LIBBY) to 100% occl RPDA ([facility]) with patent prior RCA stents at that time, EF 50% then; -2011 s/p anterior STEMI 2011 with [place] LIBBY x 2 to mid LAD then ([place]); residual 80% prox D1 (large vessel), 95% mD1; 70%mRCA (pre and post prior stents), 70% dCFX; (also 40% RPDA; 60% pCFX; 40% mCFX;) EF then 37% with AK of apex/AL lindsey and AK of IW; -04/2017 s/p NSTEMI in setting of sepsis/PNA-->[facility] with 70-80% mRCA (ISR), 70-80 % RPDA (ISR); 70-80% mLAD; 80-90% pLCX (small vessel); 90-95% OM2 (large vessel) ; 80-90% prox Ramus (large vessel), 30-50% ostial RCA, 50-60% eccentric lesion OM1 (large vessel); -pt declined cabg twice after that, and has not followed up with us since then ( previously dr suarez pt, stopped seeing him) -no signs ACS here -on ASA and plavix from before (for recurrent CVAs)--cont same -cont home BB, statin, imdur -pt should f/u with us in office and discuss percutaneous revascularization options if he declines CABG (consider ischemia-driven strategy electively, as outpt) isch CMP/ chronic syst CHF: -currently mildly reduced EF on echo -cont home coreg, imdur, hydralazine for chf regimen -h/o BRANT (creat to 2.5) with WENDY in past--stopped. re-trial with lower dose WENDY not possible as pt would have to f/u in office for frequent labs and he is non- compliant -currently vol depleted with brant on admit so holding lasix. Was on 80 po lasix bid at home--will likely need to decrease dose when cr stable with outpt f/u. HTN: -bp stable -cont current meds h/o CVA: -dx'd lacunar infarct 02/10 clinically then (slurred speech) -? acute CVA/TIA 11/13, seen by neuro then--ASA added to prior plavix at that time -same meds BRANT on CKD: -cr freq fluctuates 1.5-2.9 on past admits here, often related to diuresis -currently with brant on admit-->back to baseline abnl ecg, mobitz I 2nd degree AVB, chronic: -seen on tele here on several occasions, no significant pauses, benign.
[2018-10-30] MEDS ORDERED: MAG HYDROX/AL HYDROX/SIMETH 30 ML UNIT-DOSE CUP PO PRN (10:50)
[2018-10-30] MEDS: RANITIDINE HCL 150 MG TABLET (FP) PO SCH (11:04)
[2018-10-30 11:39] LABS: ANISOCYTOSIS 1+; MACROCYTOSIS 0; PLATELET ESTIMATE NORMAL
--- NOTE | 2018-10-30 12:35 | PN ---
Progress Note, Physician History of Present Illness: feels better no new issues - Current Medication List Current Medications: Active Medications Acetaminophen (Tylenol -) 650 mg PO Q4H PRN PRN Reason: FEVER Last Admin: 10/30/18 09:53 Dose: 650 mg Al Hydroxide/Mg Hydroxide (Mylanta Oral Suspension -) 30 ml PO Q6H PRN PRN Reason: DYSPEPSIA Albuterol Sulfate (Ventolin 0.083% Nebulizer Soln -) 1 amp NEB Q6H PRN PRN Reason: SHORT OF BREATH/WHEEZING Last Admin: 10/30/18 07:36 Dose: 1 amp Amlodipine Besylate (Norvasc -) 5 mg PO DAILY [facility] Last Admin: 10/30/18 09:12 Dose: 5 mg Aspirin (Ecotrin -) 81 mg PO DAILY [facility] Last Admin: 10/30/18 09:13 Dose: 81 mg Atorvastatin Calcium (Lipitor -) 40 mg PO HS [facility] Last Admin: 10/29/18 21:24 Dose: 40 mg Budesonide/Formoterol Fumarate (Symbicort 160/4.5mcg -) 2 puff IH BID [facility] Last Admin: 10/30/18 09:13 Dose: 2 puff Carvedilol (Coreg -) 6.25 mg PO BID [facility] Last Admin: 10/30/18 09:13 Dose: 6.25 mg Clopidogrel Bisulfate (Plavix -) 75 mg PO DAILY [facility] Last Admin: 10/30/18 09:13 Dose: 75 mg Heparin Sodium (Porcine) (Heparin -) 5,000 unit SQ Q8H-IV [facility] Last Admin: 10/30/18 09:13 Dose: 5,000 unit Hydralazine HCl (Apresoline -) 10 mg PO BID [facility] Last Admin: 10/30/18 09:13 Dose: 10 mg Ceftriaxone Sodium 1 gm/ (Dextrose) 50 mls @ 100 mls/hr IVPB DAILY [facility]; Protocol Last Admin: 10/30/18 09:12 Dose: 100 mls/hr Vancomycin HCl 1,250 mg/ (Dextrose) 250 mls @ 250 mls/2 hr IVPB Q24H [facility]; Protocol Last Admin: 10/29/18 20:59 Dose: Not Given Insulin Aspart (Novolog Vial Sliding Scale -) 0 vial SQ ACHS [facility]; Protocol Last Admin: 10/30/18 11:11 Dose: 2 units Isosorbide Mononitrate (Imdur -) 30 mg PO DAILY [facility] Last Admin: 10/30/18 09:13 Dose: 30 mg Magnesium Oxide (Mag-Ox -) 400 mg PO DAILY [facility] Last Admin: 10/30/18 09:13 Dose: 400 mg Ondansetron HCl (Zofran Injection) 4 mg IVPUSH Q6H PRN PRN Reason: NAUSEA Oxycodone HCl (Roxicodone -) 30 mg PO Q4H PRN PRN Reason: PAIN LEVEL 6-10 Last Admin: 10/30/18 09:54 Dose: 30 mg Pregabalin (Lyrica -) 50 mg PO BID [facility] Last Admin: 10/30/18 09:12 Dose: 50 mg Ranitidine HCl (Zantac -) 150 mg PO DAILY [facility] Last Admin: 10/30/18 11:04 Dose: 150 mg Sodium Bicarbonate (Sodium Bicarbonate -) 650 mg PO DAILY [facility] Last Admin: 10/30/18 09:12 Dose: 650 mg Temazepam (Restoril -) 30 mg PO HS [facility] Last Admin: 10/29/18 21:23 Dose: 30 mg - Objective Vital Signs: Vital Signs Temperature 98.2 F 10/30/18 09:00 Pulse Rate 62 10/30/18 09:00 Respiratory Rate 18 10/30/18 09:00 Blood Pressure 147/79 10/30/18 09:00 O2 Sat by Pulse Oximetry (%) 95 10/30/18 09:00 Constitutional: Yes: No Distress, Calm Cardiovascular: Yes: Regular Rate and Rhythm Respiratory: Yes: Regular, CTA Bilaterally Gastrointestinal: Yes: Normal Bowel Sounds, Soft Musculoskeletal: Yes: WNL Extremities: Yes: WNL Neurological: Yes: Alert, Oriented Psychiatric: Yes: Alert, Oriented Labs: CBC, BMP 10/30/18 06:15 10/30/18 06:15 Assessment/Plan Problem List - Problems (1) Sepsis Code(s): A41.9 - SEPSIS, UNSPECIFIED ORGANISM (2) Renal failure (ARF), acute on chronic Code(s): N17.9 - ACUTE KIDNEY FAILURE, UNSPECIFIED; N18.9 - CHRONIC KIDNEY DISEASE, UNSPECIFIED Qualifiers: Acute renal failure type: unspecified Chronic kidney disease stage: unspecified stage Qualified Code(s): N17.9 - Acute kidney failure, unspecified ; N18.9 - Chronic kidney disease, unspecified (3) Weakness Code(s): R53.1 - WEAKNESS (4) CAD (coronary artery disease) Code(s): I25.10 - ATHSCL HEART DISEASE OF [place] CORONARY ARTERY W/O ANG PCTRS Qualifiers: [place] vs. transplanted heart: [place] heart Associated angina: without angina (5) COPD (chronic obstructive pulmonary disease) Code(s): J44.9 - CHRONIC OBSTRUCTIVE PULMONARY DISEASE, UNSPECIFIED (6) Chronic pain Code(s): G89.29 - OTHER CHRONIC PAIN (7) Congestive heart failure (CHF) Code(s): I50.9 - HEART FAILURE, UNSPECIFIED (8) Diabetes mellitus Code(s): E11.9 - TYPE 2 DIABETES MELLITUS WITHOUT COMPLICATIONS Qualifiers: Diabetes mellitus type: type 2 Diabetes mellitus mcfp insulin use: with mcfp use Diabetes mellitus complication status: with circulatory complication Diabetes mellitus complication detail: with peripheral angiopathy with gangrene Qualified Code(s): E11.52 - Type 2 diabetes mellitus with diabetic peripheral angiopathy with gangrene (9) Hyperlipidemia Code(s): E78.5 - HYPERLIPIDEMIA, UNSPECIFIED (10) Hypertension Code(s): I10 - ESSENTIAL (PRIMARY) HYPERTENSION Qualifiers: Hypertension type: essential hypertension Qualified Code(s): I10 - Essential (primary) hypertension (11) Metabolic acidosis Code(s): E87.2 - ACIDOSIS plan all cx report noted repeat cx report noted awaited for finalzation rest as per the team if blood cx negative then will stop all abx stopped ceftriaxone
--- NOTE | 2018-10-30 15:07 | PN ---
Progress Note, Physician Chief Complaint: Mr Scott is without complaint today. Denies cp, sob, n/v. Says he is feeling well and asking when he can go home. - Current Medication List Current Medications: Active Medications Acetaminophen (Tylenol -) 650 mg PO Q4H PRN PRN Reason: FEVER Last Admin: 10/30/18 14:06 Dose: 650 mg Al Hydroxide/Mg Hydroxide (Mylanta Oral Suspension -) 30 ml PO Q6H PRN PRN Reason: DYSPEPSIA Albuterol Sulfate (Ventolin 0.083% Nebulizer Soln -) 1 amp NEB Q6H PRN PRN Reason: SHORT OF BREATH/WHEEZING Last Admin: 10/30/18 07:36 Dose: 1 amp Amlodipine Besylate (Norvasc -) 5 mg PO DAILY [facility] Last Admin: 10/30/18 09:12 Dose: 5 mg Aspirin (Ecotrin -) 81 mg PO DAILY [facility] Last Admin: 10/30/18 09:13 Dose: 81 mg Atorvastatin Calcium (Lipitor -) 40 mg PO HS [facility] Last Admin: 10/29/18 21:24 Dose: 40 mg Budesonide/Formoterol Fumarate (Symbicort 160/4.5mcg -) 2 puff IH BID [facility] Last Admin: 10/30/18 09:13 Dose: 2 puff Carvedilol (Coreg -) 6.25 mg PO BID [facility] Last Admin: 10/30/18 09:13 Dose: 6.25 mg Clopidogrel Bisulfate (Plavix -) 75 mg PO DAILY [facility] Last Admin: 10/30/18 09:13 Dose: 75 mg Heparin Sodium (Porcine) (Heparin -) 5,000 unit SQ Q8H-IV [facility] Last Admin: 10/30/18 09:13 Dose: 5,000 unit Hydralazine HCl (Apresoline -) 10 mg PO BID [facility] Last Admin: 10/30/18 09:13 Dose: 10 mg Vancomycin HCl 1,250 mg/ (Dextrose) 250 mls @ 250 mls/2 hr IVPB Q24H [facility]; Protocol Last Admin: 10/29/18 20:59 Dose: Not Given Insulin Aspart (Novolog Vial Sliding Scale -) 0 vial SQ ACHS [facility]; Protocol Last Admin: 10/30/18 11:11 Dose: 2 units Isosorbide Mononitrate (Imdur -) 30 mg PO DAILY [facility] Last Admin: 10/30/18 09:13 Dose: 30 mg Magnesium Oxide (Mag-Ox -) 400 mg PO DAILY [facility] Last Admin: 10/30/18 09:13 Dose: 400 mg Ondansetron HCl (Zofran Injection) 4 mg IVPUSH Q6H PRN PRN Reason: NAUSEA Oxycodone HCl (Roxicodone -) 30 mg PO Q4H PRN PRN Reason: PAIN LEVEL 6-10 Last Admin: 10/30/18 14:06 Dose: 30 mg Pregabalin (Lyrica -) 50 mg PO BID [facility] Last Admin: 10/30/18 09:12 Dose: 50 mg Ranitidine HCl (Zantac -) 150 mg PO DAILY [facility] Last Admin: 10/30/18 11:04 Dose: 150 mg Sodium Bicarbonate (Sodium Bicarbonate -) 650 mg PO DAILY [facility] Last Admin: 10/30/18 09:12 Dose: 650 mg Temazepam (Restoril -) 30 mg PO HS [facility] Last Admin: 10/29/18 21:23 Dose: 30 mg - Objective Vital Signs: Vital Signs Temperature 36.8 C 10/30/18 09:00 Pulse Rate 62 10/30/18 09:00 Respiratory Rate 18 10/30/18 09:00 Blood Pressure 147/79 10/30/18 09:00 O2 Sat by Pulse Oximetry (%) 95 10/30/18 09:00 Constitutional: Yes: No Distress, Calm, Obese Cardiovascular: Yes: Regular Rate and Rhythm. No: Gallop, Murmur, Rub Respiratory: Yes: Regular, CTA Bilaterally. No: Rales, Rhonchi, Wheezes Gastrointestinal: Yes: Normal Bowel Sounds, Soft. No: Distention, Tenderness Extremities: Yes: WNL Edema: No Labs: CBC, BMP 10/30/18 06:15 10/30/18 06:15 Problem List - Problems (1) Sepsis Code(s): A41.9 - SEPSIS, UNSPECIFIED ORGANISM (2) Renal failure (ARF), acute on chronic Code(s): N17.9 - ACUTE KIDNEY FAILURE, UNSPECIFIED; N18.9 - CHRONIC KIDNEY DISEASE, UNSPECIFIED Qualifiers: Acute renal failure type: unspecified Chronic kidney disease stage: unspecified stage Qualified Code(s): N17.9 - Acute kidney failure, unspecified ; N18.9 - Chronic kidney disease, unspecified (3) Weakness Code(s): R53.1 - WEAKNESS (4) CAD (coronary artery disease) Code(s): I25.10 - ATHSCL HEART DISEASE OF [place] CORONARY ARTERY W/O ANG PCTRS Qualifiers: [place] vs. transplanted heart: [place] heart Associated angina: without angina (5) COPD (chronic obstructive pulmonary disease) Code(s): J44.9 - CHRONIC OBSTRUCTIVE PULMONARY DISEASE, UNSPECIFIED (6) Chronic pain Code(s): G89.29 - OTHER CHRONIC PAIN (7) Congestive heart failure (CHF) Code(s): I50.9 - HEART FAILURE, UNSPECIFIED (8) Diabetes mellitus Code(s): E11.9 - TYPE 2 DIABETES MELLITUS WITHOUT COMPLICATIONS Qualifiers: Diabetes mellitus type: type 2 Diabetes mellitus long term care pharmacist insulin use: with correction use Diabetes mellitus complication status: with circulatory complication Diabetes mellitus complication detail: with peripheral angiopathy with gangrene Qualified Code(s): E11.52 - Type 2 diabetes mellitus with diabetic peripheral angiopathy with gangrene (9) Hyperlipidemia Code(s): E78.5 - HYPERLIPIDEMIA, UNSPECIFIED (10) Hypertension Code(s): I10 - ESSENTIAL (PRIMARY) HYPERTENSION Qualifiers: Hypertension type: essential hypertension Qualified Code(s): I10 - Essential (primary) hypertension (11) Metabolic acidosis Code(s): E87.2 - ACIDOSIS Assessment/Plan (1) Sepsis Assessment/Plan -01/31 blood cultures positive -repeat blood cultures pending -case d/w Dr Viramontes -continue vancomycin Code(s): A41.9 - SEPSIS, UNSPECIFIED ORGANISM (2) Renal failure (ARF), acute on chronic Assessment/Plan: -istable Code(s): N17.9 - ACUTE KIDNEY FAILURE, UNSPECIFIED; N18.9 - CHRONIC KIDNEY DISEASE, UNSPECIFIED Qualifiers: Acute renal failure type: unspecified Chronic kidney disease stage: unspecified stage Qualified Code(s): N17.9 - Acute kidney failure, unspecified ; N18.9 - Chronic kidney disease, unspecified (3) Weakness Assessment/Plan: -improved per patient -continue PT Code(s): R53.1 - WEAKNESS (4) CAD (coronary artery disease) Assessment/Plan: -quiescent Code(s): I25.10 - ATHSCL HEART DISEASE OF [place] CORONARY ARTERY W/O ANG PCTRS Qualifiers: [place] vs. transplanted heart: [place] heart Associated angina: without angina (5) COPD (chronic obstructive pulmonary disease) Assessment/Plan: -not in exacerbation -continue home regimen Code(s): J44.9 - CHRONIC OBSTRUCTIVE PULMONARY DISEASE, UNSPECIFIED (6) Chronic pain Assessment/Plan: -will continue oxycodone 30mg q4h prn Code(s): G89.29 - OTHER CHRONIC PAIN (7) Congestive heart failure (CHF) Assessment/Plan: -ECHO reviewed Code(s): I50.9 - HEART FAILURE, UNSPECIFIED (8) Diabetes mellitus Assessment/Plan: -diabetic diet and SSI Code(s): E11.9 - TYPE 2 DIABETES MELLITUS WITHOUT COMPLICATIONS Qualifiers: Diabetes mellitus type: type 2 Diabetes mellitus long term care pharmacist insulin use: with correction use Diabetes mellitus complication status: with circulatory complication Diabetes mellitus complication detail: with peripheral angiopathy with gangrene Qualified Code(s): E11.52 - Type 2 diabetes mellitus with diabetic peripheral angiopathy with gangrene (9) Hyperlipidemia Assessment/Plan: -continue statin Code(s): E78.5 - HYPERLIPIDEMIA, UNSPECIFIED (10) Hypertension Assessment/Plan: -controlled -continue home regimen Code(s): I10 - ESSENTIAL (PRIMARY) HYPERTENSION Qualifiers: Hypertension type: essential hypertension Qualified Code(s): I10 - Essential (primary) hypertension (11) Metabolic acidosis Assessment/Plan: -resolved Code(s): E87.2 - ACIDOSIS
[2018-10-30] MEDS: VANCOMYCIN 1,250 MG in DEXTROSE 5%-WATER - 250 ML IVPB SCH (17:05)
[2018-10-30] MEDS: ATORVASTATIN CA 40 MG TABLET (FP) PO SCH (21:48)
[2018-10-30] MEDS: TEMAZEPAM 15 MG CAPSULE PO SCH (21:49)
[2018-10-31] MEDS: ACETAMINOPHEN 325 MG TABLET (FP) PO PRN ×3 (01:50→10:28)
[2018-10-31] MEDS: oxyCODONE HCL 5 MG TABLET PO PRN ×4 (01:50→14:16)
[2018-10-31] MEDS: HEPARIN NA (PORCINE) 5,000 UNITS/ML 1ML VIAL SQ SCH ×2 (01:50→09:46)
[2018-10-31] MEDS: INSULIN SLIDING SCALE (NOVOLOG) 1 VIAL SQ SCH ×3 (06:03→17:00)
[2018-10-31 06:53] LABS: EOS % 4.8 % (0-4.5); HEMATOCRIT 29.6 % (35.4-49); HEMOGLOBIN 9.5 GM/dL (11.7-16.9); LYMPH % 12.3 % (8-40); MCH 32.9 pg (25.7-33.7); MCHC 31.9 g/dl (32.0-35.9); MEAN CELL VOLUME 103.1 fl (80-96); MEAN PLT VOLUME 8.2 fl (7.5-11.1); MONO % 13.3 % (3.8-10.2); NEUT % 67.6 % (42.8-82.8); PLATELET COUNT 222 K/MM3 (134-434); RBC 2.87 M/mm3 (4.00-5.60); RDW 15.9 % (11.9-15.9); WHITE BLOOD COUNT 9.9 K/mm3 (4.0-10.0)
[2018-10-31 07:02] LABS: ANION GAP 8 MMOL/L (8-16); BLOOD UREA NITROGEN 22 mg/dL (7-18); CALCIUM 7.6 mg/dL (8.5-10.1); CHLORIDE 108 mmol/L (98-107); CO2 23 mmol/L (21-32); CREATININE 1.4 mg/dL (0.55-1.3); GLUCOSE,RANDOM 91 mg/dL (74-106); MAGNESIUM 2.1 mg/dL (1.8-2.4); PHOSPHOROUS 2.3 mg/dL (2.5-4.9); POTASSIUM 3.8 mmol/L (3.5-5.1); SODIUM 139 mmol/L (136-145)
[2018-10-31] MEDS: PREGABALIN 25 MG CAPSULE PO SCH (09:40)
[2018-10-31] MEDS: MAGNESIUM OXIDE 400 MG TABLET (FP) PO SCH (09:41)
[2018-10-31] MEDS: CLOPIDOGREL BISULFATE 75 MG TABLET (FP) PO SCH (09:41)
[2018-10-31] MEDS: SODIUM BICARBONATE 650 MG TABLET PO SCH (09:41)
[2018-10-31] MEDS: ASPIRIN COATED 81 MG TABLET.EC PO SCH (09:41)
[2018-10-31] MEDS: RANITIDINE HCL 150 MG TABLET (FP) PO SCH (09:41)
[2018-10-31] MEDS: CARVEDILOL 6.25 MG TABLET (FP) PO SCH ×2 (09:41→10:29)
[2018-10-31] MEDS: hydrALAZINE HCL 10 MG TABLET PO SCH ×2 (09:41→10:29)
[2018-10-31] MEDS: ISOSORBIDE MONONITRATE 30 MG TAB.SR.24H (FP) PO SCH ×2 (09:42→10:29)
[2018-10-31] MEDS: BUDESONIDE/FORMETEROL FUMARATE 160/4.5 mcg INHALER IH SCH (09:42)
[2018-10-31] MEDS: amLODIPine BESYLATE 5 MG TABLET (FP) PO SCH ×2 (09:42→10:29)
[2018-10-31 10:38] LABS: ANISOCYTOSIS 1+; MACROCYTOSIS 1+; OVALOCYTE 1+; PLATELET ESTIMATE NORMAL
[2018-10-31] MEDS ORDERED: PANTOPRAZOLE 40 MG TABLET (FP) PO ONE (10:45)
--- NOTE | 2018-10-31 11:24 | PN ---
Progress Note (short form) - Note Progress Note: Chief Complaint: weakness History of Present Illness: feels well today, no chest pain, palps, dizziness, lightheadedness Current Medications Acetaminophen (Tylenol -) 650 mg PO Q4H PRN PRN Reason: FEVER Last Admin: 10/31/18 10:28 Dose: 650 mg Al Hydroxide/Mg Hydroxide (Mylanta Oral Suspension -) 30 ml PO Q6H PRN PRN Reason: DYSPEPSIA Last Admin: 10/30/18 16:42 Dose: 30 ml Albuterol Sulfate (Ventolin 0.083% Nebulizer Soln -) 1 amp NEB Q6H PRN PRN Reason: SHORT OF BREATH/WHEEZING Last Admin: 10/30/18 20:45 Dose: 1 amp Amlodipine Besylate (Norvasc -) 5 mg PO DAILY [facility] Last Admin: 10/31/18 10:29 Dose: 5 mg Aspirin (Ecotrin -) 81 mg PO DAILY [facility] Last Admin: 10/31/18 09:41 Dose: 81 mg Atorvastatin Calcium (Lipitor -) 40 mg PO HS [facility] Last Admin: 10/30/18 21:48 Dose: 40 mg Budesonide/Formoterol Fumarate (Symbicort 160/4.5mcg -) 2 puff IH BID [facility] Last Admin: 10/31/18 09:42 Dose: 2 puff Carvedilol (Coreg -) 6.25 mg PO BID [facility] Last Admin: 10/31/18 10:29 Dose: Not Given Clopidogrel Bisulfate (Plavix -) 75 mg PO DAILY [facility] Last Admin: 10/31/18 09:41 Dose: 75 mg Heparin Sodium (Porcine) (Heparin -) 5,000 unit SQ Q8H-IV [facility] Last Admin: 10/31/18 09:46 Dose: 5,000 unit Hydralazine HCl (Apresoline -) 10 mg PO BID [facility] Last Admin: 10/31/18 10:29 Dose: 10 mg Insulin Aspart (Novolog Vial Sliding Scale -) 0 vial SQ ACHS [facility]; Protocol Last Admin: 10/31/18 06:03 Dose: Not Given Isosorbide Mononitrate (Imdur -) 30 mg PO DAILY [facility] Last Admin: 10/31/18 10:29 Dose: 30 mg Magnesium Oxide (Mag-Ox -) 400 mg PO DAILY [facility] Last Admin: 10/31/18 09:41 Dose: 400 mg Ondansetron HCl (Zofran Injection) 4 mg IVPUSH Q6H PRN PRN Reason: NAUSEA Oxycodone HCl (Roxicodone -) 30 mg PO Q4H PRN PRN Reason: PAIN LEVEL 6-10 Last Admin: 10/31/18 10:27 Dose: 30 mg Pregabalin (Lyrica -) 50 mg PO BID [facility] Last Admin: 10/31/18 09:40 Dose: 50 mg Ranitidine HCl (Zantac -) 150 mg PO DAILY [facility] Last Admin: 10/31/18 09:41 Dose: 150 mg Sodium Bicarbonate (Sodium Bicarbonate -) 650 mg PO DAILY [facility] Last Admin: 10/31/18 09:41 Dose: 650 mg Temazepam (Restoril -) 30 mg PO HS [facility] Last Admin: 10/30/18 21:49 Dose: 30 mg - Objective Vital Signs Period Temp Pulse Resp BP Sys/Chandra Pulse Ox Last 24 Hr 97.7 F-98.8 F 54-60 18-22 128-138/58-75 95 Constitutional: Yes: Well Nourished, No Distress, Calm Cardiovascular: Yes: Regular Rate and Rhythm (decr intensity), S1, S2. No: JVD , Gallop, Murmur Respiratory: Yes: Regular, CTA Bilaterally. No: Accessory Muscle Use, Wheezes Extremities: No: Cold Edema: No Neurological: Yes: Alert, Oriented Psychiatric: No: Agitated Assessment/Plan ecg: sr, 1avb, rbbb. inf q's CXR: central congestion [facility] 05/15: 70-80% mRCA (ISR), 70-80% RPDA (ISR); 70-80% mLAD; 80-90% pLCX (small vessel); 90-95% OM2 (large vessel); 80-90% prox Ramus (large vessel) ...nonobstructive dz of note [id number]% ostial RCA, 50-60% eccentric lesion OM1 (large vessel); EDP 30-->25 post-nitro EF 38% (diffuse WMAs) Syntax score 20 Echo 10/29/18: mod LVE, mild global LV hypo (45-50%). RV tds. mild TR. no vegetations noted Echo 7/17: mod to sev decr LVEF; severe hypokinesis of all lindsey except basal segments. nl RV. mild MR/TR. no peric eff. Echo 01/2017: mild global HK, lvef 45-50, nl rv, nl rvsp, mild lae, mild tr a/p: 68 year old male with a history of dm, ckd (1.5-2), CVA 10/2014, CAD s/p STEMI and multiple pci's, ischemic CM with systolic chf, COPD, extensive smoking history (now quit 12/2016) here with generalized weakness. generalized weakness, + blood cultures staph epi (x2): -on abx per ID -no valve dysfunction or vege on echo here, further w/u per ID rec.s CAD: -2004 s/p PCI (LIBBY) to 100% occl RPDA ([facility]) with patent prior RCA stents at that time, EF 50% then; -2011 s/p anterior STEMI 2011 with Coin LIBBY x 2 to mid LAD then ([facility]); residual 80% prox D1 (large vessel), 95% mD1; 70%mRCA (pre and post prior stents), 70% dCFX; (also 40% RPDA; 60% pCFX; 40% mCFX;) EF then 37% with AK of apex/AL lindsey and AK of IW; -04/2017 s/p NSTEMI in setting of sepsis/PNA-->[facility] with 70-80% mRCA (ISR), 70-80 % RPDA (ISR); 70-80% mLAD; 80-90% pLCX (small vessel); 90-95% OM2 (large vessel) ; 80-90% prox Ramus (large vessel), 30-50% ostial RCA, 50-60% eccentric lesion OM1 (large vessel); -pt declined cabg twice after that, and has not followed up with us since then ( previously dr suarez pt, stopped seeing him) -no signs ACS here -on ASA and plavix from before (for recurrent CVAs)--cont same -cont home BB, statin, imdur -pt should f/u with us in office and discuss percutaneous revascularization options if he declines CABG (consider ischemia-driven strategy electively, as outpt) isch CMP/ chronic syst CHF: -currently mildly reduced EF on echo -cont home coreg, imdur, hydralazine for chf regimen -h/o BRANT (creat to 2.5) with WENDY in past--stopped. re-trial with lower dose WENDY not possible as pt would have to f/u in office for frequent labs and he is non- compliant -currently vol depleted with brant on admit so holding lasix. Was on 80 po lasix bid at home - would discharge home on lower dose lasix due to BRANT, dc with lasix 80 mg daily HTN: -bp stable -cont current meds h/o CVA: -dx'd lacunar infarct 02/10 clinically then (slurred speech) -? acute CVA/TIA 11/13, seen by neuro then--ASA added to prior plavix at that time -same meds BRANT on CKD: -cr freq fluctuates 1.5-2.9 on past admits here, often related to diuresis -currently with brant on admit-->back to baseline abnl ecg, mobitz I 2nd degree AVB, chronic: -seen on tele here on several occasions, no significant pauses, benign.
--- NOTE | 2018-10-31 12:16 | DS ---
Physical Examination Vital Signs: Vital Signs Temperature 97.9 F 10/31/18 05:56 Pulse Rate 54 L 10/31/18 05:56 Respiratory Rate 18 10/31/18 05:56 Blood Pressure 138/59 L 10/31/18 05:56 O2 Sat by Pulse Oximetry (%) 95 10/30/18 21:00 Constitutional: Yes: Well Nourished, No Distress, Calm Cardiovascular: Yes: Regular Rate and Rhythm Respiratory: Yes: WNL, Regular, CTA Bilaterally. No: Accessory Muscle Use, Tachypnea, Wheezes Gastrointestinal: Yes: WNL, Normal Bowel Sounds, Soft, Abdomen, Obese. No: Distention, Tenderness, Vomiting Renal/: Yes: WNL Musculoskeletal: Yes: Back Pain Extremities: Yes: WNL Neurological: Yes: WNL, Alert, Oriented Psychiatric: Yes: WNL, Alert, Oriented Labs: CBC, BMP 10/31/18 05:15 10/31/18 05:15 Discharge Summary Reason For Visit: KIDNEY INJURY/WEAKNESS Current Active Problems History of PR (myocardial infarction) (Acute) Hypomagnesemia (Acute) Sepsis (Acute) Weakness (Acute) Hospital Course: 68 year old male admitted for evaluation of weakness. Pt noted to have BRANT on admission which resolved. Case discussed with cardiology, lasix decreased to 80mg daily. 4/4 blood cultures positive staph, pt evaluated by ID, received vancomycin. repeat blood cultures negative, possible contaminant, Pt clinically appears well, wbc count wnl, hemodynamically stable. Pt cleared by ID. Noted pt to be on multiple narcotics, I discussed with pt such regimen can be unsafe and advised reducing narcotic intake as this could be causing his weakness/ lethargy. I also recommended seeing a journeyman painter outpt. We held morphine, vicodin here and pt appeared comfortable without severe pain. PCP informed as well of the concern. Pt is currently medically stable for discharge , pt ambulated 25ft w/ PT, I recommended BALA placement however pt refuses. 40 minutes spent in discharge planning. Condition: Stable - Instructions Diet, Activity, Other Instructions: PT as tolerated LASIX 80 MG ONCE A DAY ONLY, CHECK BMP IN 1 WEEK levemir 10units at HS and novolog per sliding scale based on blood sugars- your blood sugars have been well controlled here avoid overuse of narcotics, minimize use to prevent increased lethargy and weakness follow up as directed Referrals: Mulugeta Orozco MD [Staff Physician] - 2 Weeks Vin Isbell MD [Staff Physician] - 1 Week Disposition: VNS/HOME HEALTH CARE - Home Medications Comprehensive Discharge Medication List: Ambulatory Orders Aspirin [Ecotrin] 81 mg PO DAILY 04/29/15 Pregabalin [Lyrica] 50 mg PO BID 03/13/17 Isosorbide Mononitrate [Isosorbide Mononitrate ER] 30 mg PO DAILY 06/04/17 Acetaminophen [Tylenol .Regular Strength -] 650 mg PO Q4H PRN #90 tablet Albuterol 0.083% Nebulizer Clarisse [Ventolin 0.083% Nebulizer Soln -] 1 neb NEB QID PRN 10/04/17 Amlodipine Besylate [Norvasc -] 5 mg PO DAILY #30 tablet 10/09/17 Clopidogrel Bisulfate [Plavix -] 75 mg PO DAILY #30 tablet 10/09/17 Insulin Sliding Scale [Novolog Vial Sliding Scale -] 20 units SQ TID 05/31/18 Atorvastatin Ca [Lipitor] 40 mg PO HS 10/29/18 Budesonide/Formeterol Fumarate [SYMBICORT 160/4.5mcg -] 2 puff IH BID 10/29/18 Carvedilol [Coreg] 6.25 mg PO BID 10/29/18 Fluticasone/Salmeterol [Advair Hfa 115-21 Mcg Inhaler] 2 puff IH BID 10/29/18 Hydralazine HCl 10 mg PO BID 10/29/18 Lansoprazole [Prevacid] 30 mg PO DAILY 10/29/18 Magnesium Oxide [Magnesium] 400 mg PO DAILY 10/29/18 Sodium Bicarbonate - 650 mg PO DAILY 10/29/18 Temazepam 30 mg PO BID 10/29/18 Zolpidem Tartrate [Ambien] 10 mg PO HS 10/29/18 Furosemide [Lasix -] 80 mg PO DAILY tablet 10/31/18
--- NOTE | 2018-10-31 12:32 | PN ---
Progress Note, Physician History of Present Illness: doing well stable all repeat cx negative - Current Medication List Current Medications: Active Medications Acetaminophen (Tylenol -) 650 mg PO Q4H PRN PRN Reason: FEVER Last Admin: 10/31/18 10:28 Dose: 650 mg Al Hydroxide/Mg Hydroxide (Mylanta Oral Suspension -) 30 ml PO Q6H PRN PRN Reason: DYSPEPSIA Last Admin: 10/30/18 16:42 Dose: 30 ml Albuterol Sulfate (Ventolin 0.083% Nebulizer Soln -) 1 amp NEB Q6H PRN PRN Reason: SHORT OF BREATH/WHEEZING Last Admin: 10/30/18 20:45 Dose: 1 amp Amlodipine Besylate (Norvasc -) 5 mg PO DAILY [facility] Last Admin: 10/31/18 10:29 Dose: 5 mg Aspirin (Ecotrin -) 81 mg PO DAILY [facility] Last Admin: 10/31/18 09:41 Dose: 81 mg Atorvastatin Calcium (Lipitor -) 40 mg PO HS [facility] Last Admin: 10/30/18 21:48 Dose: 40 mg Budesonide/Formoterol Fumarate (Symbicort 160/4.5mcg -) 2 puff IH BID [facility] Last Admin: 10/31/18 09:42 Dose: 2 puff Carvedilol (Coreg -) 6.25 mg PO BID [facility] Last Admin: 10/31/18 10:29 Dose: Not Given Clopidogrel Bisulfate (Plavix -) 75 mg PO DAILY [facility] Last Admin: 10/31/18 09:41 Dose: 75 mg Furosemide (Lasix -) 80 mg PO DAILY [facility] Heparin Sodium (Porcine) (Heparin -) 5,000 unit SQ Q8H-IV [facility] Last Admin: 10/31/18 09:46 Dose: 5,000 unit Hydralazine HCl (Apresoline -) 10 mg PO BID [facility] Last Admin: 10/31/18 10:29 Dose: 10 mg Insulin Aspart (Novolog Vial Sliding Scale -) 0 vial SQ ACHS [facility]; Protocol Last Admin: 10/31/18 06:03 Dose: Not Given Isosorbide Mononitrate (Imdur -) 30 mg PO DAILY [facility] Last Admin: 10/31/18 10:29 Dose: 30 mg Magnesium Oxide (Mag-Ox -) 400 mg PO DAILY [facility] Last Admin: 10/31/18 09:41 Dose: 400 mg Ondansetron HCl (Zofran Injection) 4 mg IVPUSH Q6H PRN PRN Reason: NAUSEA Oxycodone HCl (Roxicodone -) 30 mg PO Q4H PRN PRN Reason: PAIN LEVEL 6-10 Last Admin: 10/31/18 10:27 Dose: 30 mg Pregabalin (Lyrica -) 50 mg PO BID [facility] Last Admin: 10/31/18 09:40 Dose: 50 mg Ranitidine HCl (Zantac -) 150 mg PO DAILY [facility] Last Admin: 10/31/18 09:41 Dose: 150 mg Sodium Bicarbonate (Sodium Bicarbonate -) 650 mg PO DAILY [facility] Last Admin: 10/31/18 09:41 Dose: 650 mg Temazepam (Restoril -) 30 mg PO HS [facility] Last Admin: 10/30/18 21:49 Dose: 30 mg - Objective Vital Signs: Vital Signs Temperature 97.9 F 10/31/18 05:56 Pulse Rate 54 L 10/31/18 05:56 Respiratory Rate 18 10/31/18 05:56 Blood Pressure 138/59 L 10/31/18 05:56 O2 Sat by Pulse Oximetry (%) 95 10/30/18 21:00 Constitutional: Yes: No Distress, Calm Cardiovascular: Yes: S1, S2 Respiratory: Yes: Regular, CTA Bilaterally Gastrointestinal: Yes: Normal Bowel Sounds, Soft Musculoskeletal: Yes: WNL Extremities: Yes: Other Neurological: Yes: Alert, Oriented Psychiatric: Yes: Alert, Oriented Labs: CBC, BMP 10/31/18 05:15 10/31/18 05:15 Assessment/Plan Problem List - Problems (1) Sepsis Code(s): A41.9 - SEPSIS, UNSPECIFIED ORGANISM (2) Renal failure (ARF), acute on chronic Code(s): N17.9 - ACUTE KIDNEY FAILURE, UNSPECIFIED; N18.9 - CHRONIC KIDNEY DISEASE, UNSPECIFIED Qualifiers: Acute renal failure type: unspecified Chronic kidney disease stage: unspecified stage Qualified Code(s): N17.9 - Acute kidney failure, unspecified ; N18.9 - Chronic kidney disease, unspecified (3) Weakness Code(s): R53.1 - WEAKNESS (4) CAD (coronary artery disease) Code(s): I25.10 - ATHSCL HEART DISEASE OF [place] CORONARY ARTERY W/O ANG PCTRS Qualifiers: [place] vs. transplanted heart: [place] heart Associated angina: without angina (5) COPD (chronic obstructive pulmonary disease) Code(s): J44.9 - CHRONIC OBSTRUCTIVE PULMONARY DISEASE, UNSPECIFIED (6) Chronic pain Code(s): G89.29 - OTHER CHRONIC PAIN (7) Congestive heart failure (CHF) Code(s): I50.9 - HEART FAILURE, UNSPECIFIED (8) Diabetes mellitus Code(s): E11.9 - TYPE 2 DIABETES MELLITUS WITHOUT COMPLICATIONS Qualifiers: Diabetes mellitus type: type 2 Diabetes mellitus [place] insulin use: with fdc use Diabetes mellitus complication status: with circulatory complication Diabetes mellitus complication detail: with peripheral angiopathy with gangrene Qualified Code(s): E11.52 - Type 2 diabetes mellitus with diabetic peripheral angiopathy with gangrene (9) Hyperlipidemia Code(s): E78.5 - HYPERLIPIDEMIA, UNSPECIFIED (10) Hypertension Code(s): I10 - ESSENTIAL (PRIMARY) HYPERTENSION Qualifiers: Hypertension type: essential hypertension Qualified Code(s): I10 - Essential (primary) hypertension (11) Metabolic acidosis Code(s): E87.2 - ACIDOSIS plan all cx report noted repeat cx report noted patient can be send home no abx
[2018-10-31 14:47] VITALS: BP 138/63; PULSE 62; TEMP 98.4
[2018-11-01] MEDS ORDERED: FUROSEMIDE 40 MG TABLET (FP) PO SCH (10:00)
== END 2018-10-31 17:00 | disposition home health service (06) | DRG 872 ==
LOC: JER 11:07 → JERBED 15:56 → J7W 22:09
PROVIDERS: ADMIT Internal Medicine; ATTEND Nurse Practitioner Family
DX: A41.9 Sepsis, unspecified organism (principal); E87.2 Acidosis; E11.52 Type 2 diabetes mellitus with diabetic peripheral angiopathy with gangrene; N17.9 Acute kidney failure, unspecified; I50.22 Chronic systolic (congestive) heart failure; I45.2 Bifascicular block; I13.0 Hypertensive heart and chronic kidney disease with heart failure and stage 1 through stage 4 chronic kidney disease, or unspecified chronic kidney disease; E83.42 Hypomagnesemia; E11.40 Type 2 diabetes mellitus with diabetic neuropathy, unspecified; E11.22 Type 2 diabetes mellitus with diabetic chronic kidney disease; G89.29 Other chronic pain; E66.9 Obesity, unspecified; I25.10 Atherosclerotic heart disease of native coronary artery without angina pectoris; N18.9 Chronic kidney disease, unspecified; I25.5 Ischemic cardiomyopathy; I44.1 Atrioventricular block, second degree; J44.9 Chronic obstructive pulmonary disease, unspecified; I45.10 Unspecified right bundle-branch block; R63.0 Anorexia; Z68.27 Body mass index [BMI] 27.0-27.9, adult; I25.2 Old myocardial infarction; Z95.5 Presence of coronary angioplasty implant and graft; Z79.4 Long term (current) use of insulin; Z86.73 Personal history of transient ischemic attack (TIA), and cerebral infarction without residual deficits; Z99.81 Dependence on supplemental oxygen; K59.00 Constipation, unspecified; E78.00 Pure hypercholesterolemia, unspecified; Z87.891 Personal history of nicotine dependence; E78.5 Hyperlipidemia, unspecified
CPT/HCPCS: 36415; 71045-TC-FY; 76775-TC; 80048; 80053; 81003; 81015; 82550; 82553; 82962; 83735; 83880; 84100; 84443; 84484; 85025; 87040; 87086; 87186; 87804; 93005; 93010; 93306-TC; 94640; 97116-GP; 97161-GP; 99284-25; J1644

== ENCOUNTER 2018-12-22 21:04 | Inpatient (IN) | payer OTHER ==
--- NOTE | 2018-12-22 21:43 | PDOC ---
Attending Attestation - HPI HPI: 12/22/18 22:56 The patient is a 68 year old male, with a significant past medical history of HTN, DM, HLD, CVA, CAD/CT, CHF, COPD, CKD, who presents to the emergency department via EMS with, 1 week of AMS and lethargy. Allergies: Lansoprazole Primary Care Physician: Dr. Isbell - Physicial Exam PE: 12/22/18 23:19 +GENERAL: Lethargic. HEAD: No signs of trauma +EYES: Pin-point pupils ENT: Auricles normal inspection, hearing grossly normal, nares patent, oropharynx clear without exudates. Moist mucosa LUNGS: Breath sounds equal, clear to auscultation bilaterally. No wheezes, and no crackles HEART: Regular rate and rhythm, normal S1 and S2, no murmurs, rubs or gallops ABDOMEN: Suprapubic tenderness. Tense/firm lower abdomen. Soft, normoactive bowel sounds. No guarding, no rebound. No masses EXTREMITIES: Right forearms: 1+ Pitting edema. NEUROLOGICAL: ANOx1. <Sorin Cohen - Last Filed: 12/22/18 23:18> - Resident Resident Name: Garret Vizcaino - ED Attending Attestation I have performed the following: I have examined & evaluated the patient, The case was reviewed & discussed with the resident, I agree w/resident's findings & plan - Medical Decision Making 12/22/18 23:08 Pt had supapubic tenderness, and so steinberg was placed, as he was thought to be in urinary retention. However, pt has only 500 ml in the urine bag and he continues to have tenderness in the lower abdomen. 12/22/18 23:34 UA normal; UTOX positive only for opioids; pt is on opioid painkillers for his diabetic neuropathy. 12/22/18 23:37 Pt will be admitted for hypoglycemia. 12/23/18 01:09 Pt has a subacute vs chronic thalamic stroke. He will need an MRI in the AM: Patient Name: MERVAT COX THIS IS A PRELIMINARY REPORT [facility] DATE OF SERVICE: 2018-12-22 23:13:21 IMAGES: [id number] EXAM: HEAD CT WITHOUT CONTRAST HISTORY: 68-Year-Old Male Altered Mental Status Found Down. COMPARISON: None. FINDINGS: No acute intracranial hemorrhage mass effect or midline shift. The ventricles sulci and basilar cisterns have a normal size and contour. Mild nonspecific periventricular predominant low density throughout the deep white matter is most likely due to mild small vessel ischemic white matter disease. Calcified arteriosclerosis of the cavernous carotids and bilateral vertebral arteries noted. Subacute or chronic lacunar infarct in the left thalamus on axial image 14 measures approximately 6 mm. No evidence of a large territory of subacute stroke. Cannot exclude a small acute stroke. The sinuses and mastoid air cells are clear within the [id number]. The calvarium is intact. IMPRESSION No acute intracranial hemorrhage mass effect or midline shift. Mild nonspecific periventricular predominant low density throughout the deep white matter is most likely due to mild small vessel ischemic white matter disease. Calcified arteriosclerosis of the cavernous carotids and bilateral vertebral arteries noted. Subacute or chronic lacunar infarct in the left thalamus on axial image 14 measures approximately 6 mm. No evidence of a large territory of subacute stroke. Cannot exclude a small acute stroke. If there is a clinical concern for an acute or subacute stroke then follow-up evaluation with an MRI of the brain may be needed. 12/23/18 01:10 Pt's blood sugar is went down and he was treated 2x with D50; we will check if blood glucose plummets again he will be placed in the ICU; vs floor 12/23/18 02:01 Pt will go to the ICU; Pt pulled out one IV, so I removed his steinberg catheter. Pt had a FS of 170s; we left bedside and he jumped out of the foot of the bed, as both handrails were up, pt stumbled forward and fell; small laceration to the left brow. Pt will have CT head and cspine 12/23/18 02:57 Patient Name: MERVAT COX THIS IS A PRELIMINARY REPORT FROM [facility] DATE OF SERVICE: 2018-12-22 23:14:47 IMAGES: [id number] EXAM: CT abdomen and pelvis without IV contrast. Clinical indication: Distended abdomen with lethargy. There are no prior studies available for comparison. Technique: Axial CT images of the abdomen and pelvis without IV contrast were obtained. Coronal and sagittal reformats were then performed. Findings: There is some bilateral lower lobe dependent atelectatic changes greater on the left than the right. There are extensive coronary artery calcifications. The remainder the visualized portions of the lower thorax are unremarkable. There is no free intra-abdominal gas or fluid. The liver, gallbladder, adrenals, and pancreas are unremarkable, given limitations of nonenhanced CT. The spleen demonstrates some coarse calcifications, likely related to prior injury. There is no hydronephrosis or hydroureter bilaterally. There are extensive bilateral renal arterial atherosclerotic vascular calcifications. There is a focal area of right-sided renal cortical scarring with some dystrophic calcification. The bilateral kidneys are otherwise unremarkable, given limitations of nonenhanced CT. There are extensive aortoiliac atherosclerotic vascular calcifications. There are no enlarged abdominal or pelvic lymph nodes, by size criteria. There is a Steinberg catheter within the urinary bladder. There is some sigmoid diverticulosis, without evidence of diverticulitis. The appendix is not visualized which could be due to prior surgical excision or obscuration by adjacent loops of bowel. The remainder of the bowel is unremarkable. There are no abdominal wall hernias. There is some lower lumbar degenerative disc and facet disease. The remainder of the visualized bony structures are unremarkable for the patient's age. Impression: 1. Extensive coronary, renal, and aortoiliac atherosclerotic vascular calcifications. 2. Sigmoid diverticulosis, without evidence of diverticulitis. 3. Otherwise, unremarkable CT of the abdomen and pelvis, given limitations of nonenhanced CT Pt fell so he will have a 2nd CT scan of head and c spine, as he is on blood thinners: 12/23/18 03:43 Patient Name: MERVAT COX THIS IS A PRELIMINARY REPORT FROM [facility] DATE OF SERVICE: 2018-12-23 02:45:05 IMAGES: 146 Exam: CT head without IV contrast. Clinical indication:Fall with left brow laceration. Comparison:December 22, 2018. Technique: Axial unenhanced CT images from the skull base through the brain were obtained followed by coronal and sagital reformats. Findings: The visualized bony structures are unremarkable. The visualized paranasal sinuses and mastoid air cells are clear. There is no evidence of intra-or extra-axial hemorrhage. The ventricles and basilar cisterns are unremarkable. There is some mild periventricular hypodensities consistent with some mild chronic small vessel ischemic changes. There is no evidence of intracranial mass, acute infarct, or midline shift. Impression: No interval change, with no acute intracranial abnormality. 12/23/18 03:44 Patient Name: MERVAT COX THIS IS A PRELIMINARY REPORT [facility] DATE OF SERVICE: 2018-12-23 02:41:22 IMAGES: 443 Exam: CT cervical spine without IV contrast. Clinical indication:Fall with left brow laceration. Prior studies:None available. Technique: Axial unenhanced CT images from the upper thoracic spine through the skull base were obtained followed by coronal and sagittal reformats. Findings: There is no prevertebral soft tissue swelling. The alignment of the cervical spine is within normal limits. The odontoid is intact. The atlantooccipital and atlantoaxial articulations are properly situated. There are no cervical fractures or dislocations. The C2-C3 level is within normal limits for the patient's age without spinal stenosis or neural foraminal narrowing. At the C3-C4 level there is a mild based posterior disc bulge associate with some minimal facet and uncovertebral degenerative changes, but with mild spinal stenosis. At the C4-C5 level there is a moderate posterior disc bulge associated with bilateral facet and uncovertebral degenerative changes, causing at least moderate spinal stenosis and mild left neural foraminal narrowing. At the C5-C6 level there is a moderate posterior discussed effect complex associated with bilateral facet and uncovertebral degenerative changes, causing moderate to severe spinal stenosis and moderate to severe right and mild left neural foraminal narrowing. At the C6-C7 level there is a mild broad-based posterior disc bulge causing mild spinal stenosis. Visualized pulmonary parenchyma and soft tissues are unremarkable. Impression: 1. No acute cervical fracture. 2. Multilevel degenerative changes with spinal stenosis and neural foraminal narrowing, as described above on a level by level basis. <Beatriz Graff - Last Filed: 12/23/18 03:45> Attestations - Attestations 12/22/18 22:59 Documentation prepared by Sorin Cohen, acting as biomedical equipment tech for Beatriz Grfaf MD. <Sorin Cohen - Last Filed: 12/22/18 23:18>
[2018-12-22] MEDS ORDERED: DEXTROSE 50%-WATER - 25 GM/50 ML VIAL ONE (22:09)
[2018-12-22 22:42] LABS: BASO % 1.3 % (0-2.0); EOS % 1.3 % (0-4.5); HEMATOCRIT 35.7 % (35.4-49); HEMOGLOBIN 11.5 GM/dL (11.7-16.9); LYMPH % 8.2 % (8-40); MCH 33.6 pg (25.7-33.7); MCHC 32.3 g/dl (32.0-35.9); MEAN CELL VOLUME 104.2 fl (80-96); MEAN PLT VOLUME 7.6 fl (7.5-11.1); MONO % 10.9 % (3.8-10.2); NEUT % 78.3 % (42.8-82.8); PLATELET COUNT 370 K/MM3 (134-434); RBC 3.43 M/mm3 (4.00-5.60); RDW 18.6 % (11.9-15.9); WHITE BLOOD COUNT 7.5 K/mm3 (4.0-10.0)
[2018-12-22 22:50] LABS: VENOUS PC02 49.2 mmHg (38-52); VENOUS PH 7.27 (7.32-7.42); VENOUS PO2 46.7 mmHg (28-48)
[2018-12-22 23:02] LABS: URINE APPEARANCE CLEAR; URINE BILIRUBIN NEGATIVE (<2.0 mg/dL); URINE COLOR STRAW; URINE GLUCOSE (UA) NEGATIVE (NEGATIVE); URINE KETONE NEGATIVE (NEGATIVE); URINE LEUK ESTERASE NEGATIVE (NEGATIVE); URINE NITRITE NEGATIVE (NEGATIVE); URINE PROTEIN 1+ (NEGATIVE); URINE UROBILINOGEN NEGATIVE mg/dL (0.2-1.0)
[2018-12-22 23:02] LABS: INR 0.97 (0.83-1.09); PROTHROMBIN TIME (PATIENT) 11.5 SEC (9.7-13.0)
[2018-12-22 23:04] LABS: ACTIVATED PTT 33.3 SECONDS (25.2-36.5)
[2018-12-22 23:19] LABS: MACROCYTOSIS 1+; PLATELET ESTIMATE ADEQUATE
[2018-12-22 23:20] LABS: ALBUMIN 2.6 g/dl (3.4-5.0); ALK PHOS 113 U/L (45-117); ANION GAP 12 MMOL/L (8-16); BILIRUBIN,TOTAL 0.2 mg/dL (0.2-1); BLOOD UREA NITROGEN 25 mg/dL (7-18); CALCIUM 7.5 mg/dL (8.5-10.1); CHLORIDE 108 mmol/L (98-107); CO2 23 mmol/L (21-32); CREATININE 1.6 mg/dL (0.55-1.3); GLUCOSE,RANDOM 143 mg/dL (74-106); POTASSIUM 3.5 mmol/L (3.5-5.1); SGOT/AST 18 U/L (15-37); SGPT/ALT 11 U/L (13-61); SODIUM 143 mmol/L (136-145); TOT PROT 5.6 g/dl (6.4-8.2)
[2018-12-22 23:33] LABS: COCAINE, UR NEGATIVE ng/ml (CUTOFF=300); METHADONE, UR NEGATIVE ng/ml (CUTOFF=300); PHENCYCLIDINE,URINE NEGATIVE ng/ml (CUTOFF=25); URINE AMPHETAMINES NEGATIVE ng/ml (CUTOFF=500); URINE BARBITURATES NEGATIVE ng/ml (CUTOFF=200); URINE BENZODIAZEPINES NEGATIVE ng/ml (CUTOFF=200)
[2018-12-22 23:34] LABS: OPIATES, URI POSITIVE ng/ml (CUTOFF=300)
--- NOTE | 2018-12-23 00:23 | PDOC ---
History of Present Illness - General Chief Complaint: Altered Mental Status Stated Complaint: LOW Sugar Problem Time Seen by Provider: 12/22/18 21:43 History Source: Patient, Family () Exam Limitations: No Limitations - History of Present Illness Initial Comments: 12/22/18 23:58 68 yo male pmh 6 DC on Plavix(5 stent, CABG needed but Surgery state he is to weak for it), afib, CHF, HTN, HLD, 2 CVAs, CKD, COPD (on 2L NC 24 , and DM BIBA from home after being found unconscious by . EMS state pts BG was 25, gave 250ml of D5, BG improved to 170s and pt became conversant with stable vitals. On arrival, pt appears lethargic but is arousable verbal stimuli, AOX3, airway patent, vitals stable, breath sounds equal bilaterally, pulses equal bilaterally in all ext, moving all ext on command, head atraumatic, no C spine tenderness. Pt unaware of events today, has no complaints. NIH Stroke Scale - Last Known Well Date/Time & Onset Date Last Known Well: 12/16/18 Time Last Known Well: 00:00 - Initial Evaluation Level of consciousness: Alert Ask patient the month and their age: Answers both correctly Ask patient to open & close eyes; make fist and let go: Obeys both correctly Best gaze (horizontal eye movement): Partial gaze palsy Visual field testing: No visual field loss Facial paresis (Show teeth/raise eyebrows/close eyes tight): Normal symmetrical movement Motor Function: Left Arm: Some effort against gravity Motor Function: Right Arm: Some effort against gravity Motor Function: Left Leg: Some effort against gravity Motor Function: Right Leg: Some effort against gravity Limb Ataxia: No ataxia Sensory(Use pinprick test arms,legs,trunk,face/side to side): Normal Best language (Describe picture, name items, read sentences): No Aphasia Dysarthria (read several words): Normal articulation Extinction and Inattention: No abnormality - Total Score NIH Stroke Scale Score: 9 Past History - Past Medical History Allergies/Adverse Reactions: Allergies Allergy/AdvReac Type Severity Reaction Status Date / Time lansoprazole [From Prevacid] Allergy Intermediate Verified 05/24/18 07:07 Home Medications: Ambulatory Orders Aspirin [Ecotrin] 81 mg PO DAILY 04/29/15 Pregabalin [Lyrica] 50 mg PO BID 03/13/17 Isosorbide Mononitrate [Isosorbide Mononitrate ER] 30 mg PO DAILY 06/04/17 Acetaminophen [Tylenol .Regular Strength -] 650 mg PO Q4H PRN #90 tablet Albuterol 0.083% Nebulizer Clarisse [Ventolin 0.083% Nebulizer Soln -] 1 neb NEB QID PRN 10/04/17 Amlodipine Besylate [Norvasc -] 5 mg PO DAILY #30 tablet 10/09/17 Clopidogrel Bisulfate [Plavix -] 75 mg PO DAILY #30 tablet 10/09/17 Insulin Sliding Scale [Novolog Vial Sliding Scale -] 20 units SQ TID 05/31/18 Atorvastatin Ca [Lipitor] 40 mg PO HS 10/29/18 Budesonide/Formeterol Fumarate [SYMBICORT 160/4.5mcg -] 2 puff IH BID 10/29/18 Carvedilol [Coreg] 6.25 mg PO BID 10/29/18 Fluticasone/Salmeterol [Advair Hfa 115-21 Mcg Inhaler] 2 puff IH BID 10/29/18 Hydralazine HCl 10 mg PO BID 10/29/18 Lansoprazole [Prevacid] 30 mg PO DAILY 10/29/18 Magnesium Oxide [Magnesium] 400 mg PO DAILY 10/29/18 Sodium Bicarbonate - 650 mg PO DAILY 10/29/18 Temazepam 30 mg PO BID 10/29/18 Zolpidem Tartrate [Ambien] 10 mg PO HS 10/29/18 Furosemide [Lasix -] 80 mg PO DAILY tablet 10/31/18 Anemia: No Asthma: No Cancer: No Cardiac Disorders: Yes (9 stents, DC, CAD) CVA: Yes (stroke x 2) COPD: Yes CHF: No Dementia: No Diabetes: Yes GI Disorders: Yes (colitis NOW CONSTIPATION) Disorders: Yes HTN: Yes Hypercholesterolemia: Yes Kidney Stones: Yes Liver Disease: No Seizures: No Thyroid Disease: No - Surgical History Abdominal Surgery: No Appendectomy: No Cardiac Surgery: Yes (stents x 9) Cholecystectomy: No Lung Surgery: No Neurologic Surgery: No Orthopedic Surgery: No - Immunization History Immunization Up to Date: No - Suicide/Smoking/Psychosocial Hx Smoking Status: No Smoking History: Unknown if ever smoked Have you smoked in the past 12 months: No Number of Cigarettes Smoked Daily: 30 If you are a former smoker, when did you quit?: 2017 Cigars Per Day: 0 'Breaking Loose' booklet given: 01/12/17 Hx Alcohol Use: No Drug/Substance Use Hx: No Substance Use Type: None Hx Substance Use Treatment: No *Physical Exam - Vital Signs Last Vital Signs Temp Pulse Resp BP Pulse Ox 99.0 F 99 H 18 136/81 99 12/22/18 21:45 12/22/18 21:45 12/22/18 21:45 12/22/18 21:45 12/22/18 21:45 Moderate Sedation - Procedure Monitoring Vital Signs: Procedure Monitoring Vital Signs Temperature 99.0 F 12/22/18 21:45 Pulse Rate 99 H 12/22/18 21:45 Respiratory Rate 18 12/22/18 21:45 Blood Pressure 136/81 12/22/18 21:45 O2 Sat by Pulse Oximetry (%) 99 12/22/18 21:45 ED Treatment Course - LABORATORY CBC & Chemistry Diagram: 12/22/18 22:30 12/22/18 22:30 - ADDITIONAL ORDERS Additional order review: Laboratory Results 12/22/18 12/22/18 12/22/18 23:30 22:55 22:55 PT with INR INR PTT (Actin FS) VBG pH POC VBG pCO2 POC VBG pO2 Mixed VBG HCO3 Sodium Potassium Chloride Carbon Dioxide Anion Gap BUN Creatinine Creat Clearance w eGFR POC Glucometer 106 Random Glucose Calcium Total Bilirubin AST ALT Alkaline Phosphatase Creatine Kinase Troponin I Total Protein Albumin Urine Color Straw Urine Appearance Clear Urine pH 5.0 Ur Specific [place] 1.012 Urine Protein 1+ H Urine Glucose (UA) Negative Urine Ketones Negative Urine Blood 1+ H Urine Nitrite Negative Urine Bilirubin Negative Urine Urobilinogen Negative Ur Leukocyte Esterase Negative Urine WBC (Auto) 3 Urine RBC (Auto) 3 Opiates Screen Positive A* Methadone Screen Negative Barbiturate Screen Negative Phencyclidine Screen Negative Ur Amphetamines Screen Negative MDMA (Ecstasy) Screen Negative Benzodiazepines Screen Negative Cocaine Screen Negative U Marijuana (THC) Screen Negative Anti-A Titer Blood Type Antibody Screen 12/22/18 12/22/18 12/22/18 22:42 22:35 22:30 PT with INR INR PTT (Actin FS) VBG pH 7.27 L POC VBG pCO2 49.2 POC VBG pO2 46.7 Mixed VBG HCO3 22.0 Sodium Potassium Chloride Carbon Dioxide Anion Gap BUN Creatinine Creat Clearance w eGFR POC Glucometer 178 Random Glucose Calcium Total Bilirubin AST ALT Alkaline Phosphatase Creatine Kinase Troponin I Total Protein Albumin Urine Color Urine Appearance Urine pH Ur Specific [place] Urine Protein Urine Glucose (UA) Urine Ketones Urine Blood Urine Nitrite Urine Bilirubin Urine Urobilinogen Ur Leukocyte Esterase Urine WBC (Auto) Urine RBC (Auto) Opiates Screen Methadone Screen Barbiturate Screen Phencyclidine Screen Ur Amphetamines Screen MDMA (Ecstasy) Screen Benzodiazepines Screen Cocaine Screen U Marijuana (THC) Screen Anti-A Titer Cancelled Blood Type Cancelled Antibody Screen Cancelled 12/22/18 12/22/18 12/22/18 22:30 22:30 22:07 PT with INR 11.50 INR 0.97 PTT (Actin FS) 33.3 VBG pH POC VBG pCO2 POC VBG pO2 Mixed VBG HCO3 Sodium 143 Potassium 3.5 Chloride 108 H Carbon Dioxide 23 Anion Gap 12 BUN 25 H Creatinine 1.6 H Creat Clearance w eGFR 42.95 POC Glucometer 22 Random Glucose 143 H Calcium 7.5 L Total Bilirubin 0.2 AST 18 ALT 11 L Alkaline Phosphatase 113 Creatine Kinase 60 Troponin I 0.02 Total Protein 5.6 L Albumin 2.6 L Urine Color Urine Appearance Urine pH Ur Specific [place] Urine Protein Urine Glucose (UA) Urine Ketones Urine Blood Urine Nitrite Urine Bilirubin Urine Urobilinogen Ur Leukocyte Esterase Urine WBC (Auto) Urine RBC (Auto) Opiates Screen Methadone Screen Barbiturate Screen Phencyclidine Screen Ur Amphetamines Screen MDMA (Ecstasy) Screen Benzodiazepines Screen Cocaine Screen U Marijuana (THC) Screen Anti-A Titer Blood Type Antibody Screen 12/22/18 12/22/18 12/22/18 23:30 22:42 22:30 RBC 3.43 L MCV 104.2 H MCHC 32.3 RDW 18.6 H MPV 7.6 Neutrophils % 78.3 Lymphocytes % 8.2 D Monocytes % 10.9 H Eosinophils % 1.3 Basophils % 1.3 POC Glucometer 106 178 12/22/18 22:07 RBC MCV MCHC RDW MPV Neutrophils % Lymphocytes % Monocytes % Eosinophils % Basophils % POC Glucometer 22 - RADIOLOGY Radiology Studies Ordered: Category Date Time Status ABDOMEN & PELVIS CT W/O CONTR [CT] Stat CT Scan 12/22/18 22:[address] WITHOUT CONTRAST [CT] Stat CT Scan 12/22/18 21:56 Taken CHEST X-RAY PORTABLE* [RAD] Stat Radiology 12/22/18 21:56 Taken Medical Decision Making - Medical Decision Making 12/23/18 00:23 68 yo male pmh 6 DC on Plavix(5 stent, CABG needed but Surgery state he is to weak for it), afib, CHF, HTN, HLD, 2 CVAs, CKD, COPD, and DM BIBA from home after being found unconscious by . EMS state pts BG was 25, gave 250ml of D5 , BG improved to 170s and pt became conversant with stable vitals. On arrival, pt appears lethargic but is arousable verbal stimuli, AOX3, airway patent, vitals stable, breath sounds equal bilaterally, pulses equal bilaterally in all ext, moving all ext on command, head atraumatic, no C spine tenderness. Pt unaware of events today, has no complaints. Pt takes opiates for neuropathy and chronic back pain. Morphine, Hydrocodone Recheck of BG 22, 2 amps D50 with 250 ml D5 given, sugar improves to the 170s but drops to 106 within [address], CXR, Ab/pel CT ordered Septic workup Vitals WNL, continues to have a patent airway but very lethargic 12/23/18 02:01 After .8 mg narcan pt more alert and with the rails up on both sides of the bed , pt jumps out of bed and hits his head on the floor. Left .5 cm Lac to left supraorbital ridge. Sugars very labile, see lab results Within 30 min time period pts BG dropped 90 points. ICU consulted and aware D10 250 ml run at 60ml/hour *DC/Admit/Observation/Transfer Diagnosis at time of Disposition: Hypoglycemia, Lethargy - Discharge Dispostion Decision to Admit order: Yes - Referrals Referrals: Vin Isbell MD [Primary Care Provider] - - Patient Instructions - Post Discharge Activity
[2018-12-23] MEDS ORDERED: NALOXONE HCL 0.4 MG/ML VIAL IVPUSH ONE ×2 (00:27→01:03)
[2018-12-23] MEDS ORDERED: DEXTROSE 50%-WATER - 25 GM/50 ML VIAL IVPUSH ONE ×4 (00:30→06:26)
[2018-12-23] MEDS ORDERED: NALOXONE HCL 0.4 MG/ML VIAL ONE ×2 (00:30→00:53)
[2018-12-23] MEDS ORDERED: DEXTROSE 50%-WATER - 25 GM/50 ML VIAL ONE ×2 (00:37→06:24)
[2018-12-23] MEDS ORDERED: DEXTROSE 10%-WATER 500 ML INFUS.BAG IV ONE (01:01)
--- NOTE | 2018-12-23 01:27 | PN ---
Teaching Attending Note Name of Resident: Massimo Carson ATTENDING PHYSICIAN STATEMENT I saw and evaluated the patient. I reviewed the resident's note and discussed the case with the resident. I agree with the resident's findings and plan as documented. SUBJECTIVE: Seen and examined; please refer to resident note for further historical details. Briefly, this is a 68 y/o male who presents to the ER with AMS with his family; he has a complex PMH which will be discussed below. He was recently discharged from [facility] last month. He is found to be hemodynamically stable and afebrile but he is very lethargic and was not speaking in complete sentences upon arrival. He was noted to be profoundly hypoglycemic at the scene and was given a bag of D50 there which increased his sugar; dropped again to 20-range here. Given D50. Improved then dropped again to 40s so treated again; improved and pending repeat. His mentation slightly improved then diminished and continues to wax and wane. Furthermore, the patient's mentation improved transiently with narcan (biut given around the time of glucose) but once again diminished. Review of his chart reveals that on last DCS there was concern of his opiates contributing to his lethargy. Family relays this is a continued concern now, especially given his mentation for the past week; they think he may have inadvertantly taken extra if he was stashing any as controls his meds. Also, they are concerned he could have been mixing up his long and his short acting insulin as he stores them next to one another in the refridgerator. CT scan returned significant findings for small vessel ischemic disease, calcified cavernous carotids and b/l vertebral A's, subacute vs. chronic lacunar infarct in the L-thalamus ~6mm and they cannot fule out acute/ subacute stroke; recommended MRI and ER did reach out to neuro (appreciate expert opinion). We contacted imaging rest room [facility] but they had no prior results to compare the new studies to. Furthermore, once our initial encounter happened the patient sustained a fall in the ER with no new neurological changes. We will hold off providing any aspirin, DVT px, etc. until the CT results return. New IV inserted by ER staff and he is no longer agitated. 10 sys ROS unable to be completed due to clinical picture PMH (CAD s/p multiple PCI, STEMI, Ischemic CM, CKD, DM, COPD with extensive smoking hx,), PSH, Family hx, Social hx reviewed Medication list reviewed; pending reconciliation OBJECTIVE: VS, labs, imaging reviewed NAD, lethargic but aroused, resting in bed with family at bedside NC AT EOMI PERRLA; RRR s1/2; mild systolic murmur Lungs CTAB, w/ sym exp NT ND +BS; steinberg inserted Moves all 4 limbs, not following commands, no cogwheeling, normal muscle tone CT prelim read discussed in HPI MRI cannot be done 2016 CT head reviewed; shows old infarct [facility] 05/15: 70-80% mRCA (ISR), 70-80% RPDA (ISR); 70-80% mLAD; 80-90% pLCX (small vessel); 90-95% OM2 (large vessel); 80-90% prox Ramus (large vessel) ...nonobstructive dz of note [id number]% ostial RCA, 50-60% eccentric lesion OM1 (large vessel). Global hypokinesis on LV-gram Echo 05/15: mod to sev decr LVEF; severe hypokinesis of all lindsey except basal segments. nl RV. mild MR/TR. no peric eff. ASSESSMENT AND PLAN: Patient presents with AMS and found to be hypoglycemic likely from insulin overdose; potentially took too many opiates as well. Concern from radiology on prelim read that they couldn't r/o subacute/acute infarct so neurology has been consulted (he does have prior hx CVA) 1) AMS -Toxic metabolic encephalopathy likely; he is protecting his airway. Likely 2/ 2 one of or a combination of items 2-4 which will be addressed separately. -Neuro checks, seizure precautions. 2) Acute hypoglycemia -D10 drip as the patient already got 500cc of D5W and want to minimize additional fluids given his poor overall cardiac status. Q1H fingersticks necessatate the use of ICU. Will 3) R/O Acute vs Subacute CVA with prior CVA/TIA -Noted on CT head; he does have old stroke evident on 2017 imaging in nov which is unchanged in the study preformed later in the year near the cerebellum. Will review final read with radiology. -he has metal plates in his head and cannot get MRI due to this; reviewed recent echo, checking carotid dopplers (athereosclerosis noted in vertebrals, etc. on prelim read CT). Deferring further tx to neuro. -Hold off all antiplt agents until confirmed no bleed. PT and swallow eval ( NPO until then). Continue statin. Will juvenile counselor regarding risk factor reduction prior to DC. 4) Hx CAD s/p PCI -No acute issues; continue to monitor and continue home meds (resume antiplts when confirmed no bleed from fall) 5) Ischemic Cardiomyopathy -Very careful with dextrose-holding fluids given the underlying issues with his heart function; should he go into any amount of CHF or appear fluid overloaded would be inclined to involve his assisted living manager. 5) Fall -Followup repeat head CT; hold all AC until verified no bleed 6) DM -Hold insulin until hypoglycemia resolves 7) Chronic Pain -Hold Opiates for now
--- NOTE | 2018-12-23 02:24 | CONSULT ---
Consult - text type - Consultation Consultation Note: Pulm/CCM Seen and examined in ED CC: AMS, hypoglycemia Hx obtained from pt family, medical record, ED staff HPI: 68 y/o man with multiple comorbid conditons, presents with recurrent episodes of hypoglycemia, AMS. Pt is an Insulin dependent diabetic. He manages his own insulin, apparently not well as per family. He has had frequent admissions for hyperglycemia. At home he was altered. EMS was called. BGL was < 40. Mental status initially improved with IV dextrose but he became obtunded again, was given narcan without significant response. BGL was again now and received more D50. CT head was perfomed which showed old or subacute thalamic infarct. At some point pt became agitated and jumped out of bed, striking head. Repeat CT pending. Pt put on D10 gtt. He is being admitted to ICU for Q1h FS, it is felt he likely accidently overdosed on long acting insulin. There was no indication or admission of suicidal ideation. Past Medical History [employer] CVA,Peripheral Neuropathy Cardio/Vascular CHF,HTN,Hyperlipdemia,Hyperlipdemia,IA Pulmonary COPD,O2 Dependent,Pneumonia,Previously Intubated Gastrointestinal Other,GERD,Other Renal/ Renal Inusuff,Other Infectious Disease MRSA Psych Addictions Endocrine Diabetes Mellitus Past Surgical History Past Surgical History Stent Smoking History Smoking history Unknown if ever smoked Aproximately how many 30 cigarettes per day If you are a former smoker, 2017 when did you quit? Alcohol/Substance Use Hx Alcohol Use No History of Substance Use None Social History Usual Living Arrangement With Spouse ADL Independent History of Recent Travel No Ambulatory Orders Aspirin [Ecotrin] 81 mg PO DAILY 04/29/15 Pregabalin [Lyrica] 50 mg PO BID 03/13/17 Isosorbide Mononitrate [Isosorbide Mononitrate ER] 30 mg PO DAILY 06/04/17 Acetaminophen [Tylenol .Regular Strength -] 650 mg PO Q4H PRN #90 tablet Albuterol 0.083% Nebulizer Clarisse [Ventolin 0.083% Nebulizer Soln -] 1 neb NEB QID PRN 10/04/17 Amlodipine Besylate [Norvasc -] 5 mg PO DAILY #30 tablet 10/09/17 Clopidogrel Bisulfate [Plavix -] 75 mg PO DAILY #30 tablet 12/11/17 Insulin Sliding Scale [Novolog Vial Sliding Scale -] 20 units SQ TID 05/31/18 Atorvastatin Ca [Lipitor] 40 mg PO HS 10/29/18 Budesonide/Formeterol Fumarate [SYMBICORT 160/4.5mcg -] 2 puff IH BID 10/29/18 Carvedilol [Coreg] 6.25 mg PO BID 10/29/18 Fluticasone/Salmeterol [Advair Hfa 115-21 Mcg Inhaler] 2 puff IH BID 10/29/18 Hydralazine HCl 10 mg PO BID 10/29/18 Lansoprazole [Prevacid] 30 mg PO DAILY 10/29/18 Magnesium Oxide [Magnesium] 400 mg PO DAILY 10/29/18 Sodium Bicarbonate - 650 mg PO DAILY 10/29/18 Temazepam 30 mg PO BID 10/29/18 Zolpidem Tartrate [Ambien] 10 mg PO HS 10/29/18 Furosemide [Lasix -] 80 mg PO DAILY tablet 10/31/18 CBCD WBC 7.5 K/mm3 (4.0-10.0) 12/22/18 22:30 RBC 3.43 M/mm3 (4.00-5.60) L 12/22/18 22:30 Hgb 11.5 GM/dL (11.7-16.9) L 12/22/18 22:30 Hct 35.7 % (35.4-49) D 12/22/18 22:30 MCV 104.2 fl (80-96) H 12/22/18 22:30 MCHC 32.3 g/dl (32.0-35.9) 12/22/18 22:30 RDW 18.6 % (11.9-15.9) H 12/22/18 22:30 Plt Count 370 K/MM3 (134-434) D 12/22/18 22:30 MPV 7.6 fl (7.5-11.1) 12/22/18 22:30 CMP Sodium 143 mmol/L (136-145) 12/22/18 22:30 Potassium 3.5 mmol/L (3.5-5.1) 12/22/18 22:30 Chloride 108 mmol/L (98-107) H 12/22/18 22:30 Carbon Dioxide 23 mmol/L (21-32) 12/22/18 22:30 Anion Gap 12 MMOL/L (8-16) 12/22/18 22:30 BUN 25 mg/dL (7-18) H 12/22/18 22:30 Creatinine 1.6 mg/dL (0.55-1.3) H 12/22/18 22:30 Creat Clearance w eGFR 42.95 (>60) 12/22/18 22:30 Random Glucose 143 mg/dL (74-106) H 12/22/18 22:30 Calcium 7.5 mg/dL (8.5-10.1) L 12/22/18 22:30 Total Bilirubin 0.2 mg/dL (0.2-1) 12/22/18 22:30 AST 18 U/L (15-37) 12/22/18 22:30 ALT 11 U/L (13-61) L 12/22/18 22:30 Alkaline Phosphatase 113 U/L (45-117) 12/22/18 22:30 Total Protein 5.6 g/dl (6.4-8.2) L 12/22/18 22:30 Albumin 2.6 g/dl (3.4-5.0) L 12/22/18 22:30 CARDIAC ENZYMES Creatine Kinase 60 U/L (26-308) 12/22/18 22:30 Troponin I 0.02 ng/ml (0.00-0.05) 12/22/18 22:30 Vital Signs Temp 97.1 F L 12/22/18 23:00 Pulse 78 12/23/18 02:30 Resp 14 12/23/18 02:30 BP 127/69 12/23/18 02:30 Pulse Ox 95 12/23/18 02:30 Intake & Output 12/22/18 12/22/18 12/23/18 11:59 23:59 11:59 Weight 113.398 kg Other: Height 6 ft Body Mass Index (BMI) 33.9 Weight Measurement Method Estimated by Staff PE: HEENT: PERRL, Normocephalic, small abrasion just above L eyebrow, neck supple, no point tenderness PULM: clear anterion CV: s1s2 ABD: obese, soft ext: trace edema Neuro: sleepy but arousable, awakens to loud voice, nonfocal exam, no facial droop, no pronator drift A/ 68 y/o insulin dependent diabetic with hypoglycemia requiring multiple doses of d50 suspicious for accident OD on long acting insulin P/ -q 1H FS -D10 gtt -f/u repeat CT head, neck -consider MRI once stable -restart home meds in am -overnight ICU monitoring -scd for dvt prophy pending repeat CT Venessa ACNP [id number]
--- NOTE | 2018-12-23 02:35 | HP ---
CHIEF COMPLAINT: altered mental status PCP: Dr. Isbell HISTORY OF PRESENT ILLNESS: 68 y/o M w/PMH of CVA, peripheral neuropathy, IDDM, CHF, HTN, WI (s/p 5 stents) , HLD, COPD, GERD, CKD, opioid dependance presents to the ER for AMS. Pt was very lethargic as per family at bedside. Over the last week he has been more sleepy than usual and today he was very somnolent and EMS was called. Found to have BGM of 25 and given D50 with improvement and subsequent BGM soon after was in the 40s. Pt repeatedly kept dropping his sugar in the ER despite multiple attempts to successfully raise his blood glucose. His mental status waxed and waned. Initially on presentation to the ER he was oriented x3 but extremely lethargic and arousable but pt progressed to becoming extremely somnolent and not arousable to pain. He was also given narcan which seemed to help his mentation but only briefly. His locks his prescribed opiates and only gives them to him as prescribed but suspects that at times he doesn't take his pain meds and stashes them and takes many at once. He may have also mixed up his long and short acting insulin today according to his family. During my interview pt only awake when his blanket was removed and was agitated and asked to be covered up because he was cold then fell back asleep. Pt was eventually put on D10 drip and family had just left room when he climbed out of the bed and fell hit his head leaving a laceration. He also removed his IV lines during this period. Repeat head CT was ordered. Pt's mental status was slightly improved afterwards but again became lethargic soon after. ER course was notable for: (1) Head CT, D50, Narcan, Head CT x2, Abd CT (2) (3) Recent Travel: denies PAST MEDICAL HISTORY:CVA, peripheral neuropathy, IDDM, CHF, HTN, WI (s/p 5 stents), HLD, COPD, GERD, CKD, opioid dependance PAST SURGICAL HISTORY: coronary stents x5 Social History: Smoking: quit 2 years ago Drugs: opiod dependance Family History: n-c Allergies lansoprazole [From Prevacid] Allergy (Intermediate, Verified 05/24/18 07:07) severe abd pain HOME MEDICATIONS: Home Medications Medication Instructions Recorded Aspirin [Ecotrin] 81 mg PO DAILY 04/29/15 Pregabalin [Lyrica] 50 mg PO BID 03/13/17 Isosorbide Mononitrate [Isosorbide 30 mg PO DAILY 06/04/17 Mononitrate ER] Acetaminophen [Tylenol .Regular 650 mg PO Q4H PRN #90 tablet 06/10/17 Strength -] Albuterol 0.083% Nebulizer Clarisse 1 neb NEB QID PRN 10/04/17 [Ventolin 0.083% Nebulizer Soln -] Amlodipine Besylate [Norvasc -] 5 mg PO DAILY #30 tablet 10/09/17 Clopidogrel Bisulfate [Plavix -] 75 mg PO DAILY #30 tablet 10/09/17 Insulin Sliding Scale [Novolog 20 units SQ TID 05/31/18 Vial Sliding Scale -] Atorvastatin Ca [Lipitor] 40 mg PO HS 10/29/18 Budesonide/Formeterol Fumarate 2 puff IH BID 10/29/18 [SYMBICORT 160/4.5mcg -] Carvedilol [Coreg] 6.25 mg PO BID 10/29/18 Fluticasone/Salmeterol [Advair Hfa 2 puff IH BID 10/29/18 115-21 Mcg Inhaler] Hydralazine HCl 10 mg PO BID 10/29/18 Lansoprazole [Prevacid] 30 mg PO DAILY 10/29/18 Magnesium Oxide [Magnesium] 400 mg PO DAILY 10/29/18 Sodium Bicarbonate - 650 mg PO DAILY 10/29/18 Temazepam 30 mg PO BID 10/29/18 Zolpidem Tartrate [Ambien] 10 mg PO HS 10/29/18 Furosemide [Lasix -] 80 mg PO DAILY tablet 10/31/18 REVIEW OF SYSTEMS unable to obtain due to AMS PHYSICAL EXAMINATION Vital Signs - 24 hr 12/22/18 12/22/18 21:45 23:00 Temperature 99.0 F 97.1 F L Pulse Rate 99 H Respiratory 18 Rate Blood Pressure 136/81 O2 Sat by Pulse 99 Oximetry (%) GENERAL: Extremely somnolent, unable to arouse with pain. HEAD: Laceration above L eye at the end of L eyebrow. EYES: Pupils equal, round and reactive to light EARS, NOSE, THROAT: Ears normal, nares patent. LUNGS: Breath sounds equal, clear to auscultation bilaterally anteriorly but with poor inspiratory effort. HEART: Regular rate and rhythm, normal S1 and S2 ABDOMEN: Soft, nontender, not distended, normoactive bowel sounds MUSCULOSKELETAL: No joint or krystian tenderness in b/l UE and LE LOWER EXTREMITIES: warm, well-perfused. Trace pitting edema on feet NEUROLOGICAL: Lethargic PSYCHIATRIC: Lethargic SKIN: Warm, dry, laceration as noted above Laboratory Results - last 24 hr 12/22/18 12/22/18 12/22/18 22:07 22:30 22:30 WBC 7.5 RBC 3.43 L Hgb 11.5 L Hct 35.7 D MCV 104.2 H MCH 33.6 MCHC 32.3 RDW 18.6 H Plt Count 370 D MPV 7.6 Absolute Neuts (auto) 5.9 Neutrophils % 78.3 Neutrophils % (Manual) 79.0 Band Neutrophils % 0.0 Lymphocytes % 8.2 D Lymphocytes % (Manual) 12.0 Monocytes % 10.9 H Monocytes % (Manual) 8 Eosinophils % 1.3 Eosinophils % (Manual) 0.0 D Basophils % 1.3 Basophils % (Manual) 0.0 Myelocytes % (Man) 1 Nucleated RBC % 0 Platelet Estimate Adequate Macrocytosis 1+ PT with INR 11.50 INR 0.97 PTT (Actin FS) 33.3 VBG pH POC VBG pCO2 POC VBG pO2 Mixed VBG HCO3 Sodium Potassium Chloride Carbon Dioxide Anion Gap BUN Creatinine Creat Clearance w eGFR POC Glucometer 22 Random Glucose Lactic Acid Calcium Total Bilirubin AST ALT Alkaline Phosphatase Creatine Kinase Troponin I Total Protein Albumin Urine Color Urine Appearance Urine pH Ur Specific [place] Urine Protein Urine Glucose (UA) Urine Ketones Urine Blood Urine Nitrite Urine Bilirubin Urine Urobilinogen Ur Leukocyte Esterase Urine WBC (Auto) Urine RBC (Auto) Opiates Screen Methadone Screen Barbiturate Screen Phencyclidine Screen Ur Amphetamines Screen MDMA (Ecstasy) Screen Benzodiazepines Screen Cocaine Screen U Marijuana (THC) Screen Alcohol, Quantitative Anti-A Titer Blood Type Antibody Screen 12/22/18 12/22/18 12/22/18 22:30 22:30 22:35 WBC RBC Hgb Hct MCV MCH MCHC RDW Plt Count MPV Absolute Neuts (auto) Neutrophils % Neutrophils % (Manual) Band Neutrophils % Lymphocytes % Lymphocytes % (Manual) Monocytes % Monocytes % (Manual) Eosinophils % Eosinophils % (Manual) Basophils % Basophils % (Manual) Myelocytes % (Man) Nucleated RBC % Platelet Estimate Macrocytosis PT with INR INR PTT (Actin FS) VBG pH 7.27 L POC VBG pCO2 49.2 POC VBG pO2 46.7 Mixed VBG HCO3 22.0 Sodium 143 Potassium 3.5 Chloride 108 H Carbon Dioxide 23 Anion Gap 12 BUN 25 H Creatinine 1.6 H Creat Clearance w eGFR 42.95 POC Glucometer Random Glucose 143 H Lactic Acid Calcium 7.5 L Total Bilirubin 0.2 AST 18 ALT 11 L Alkaline Phosphatase 113 Creatine Kinase 60 Troponin I 0.02 Total Protein 5.6 L Albumin 2.6 L Urine Color Urine Appearance Urine pH Ur Specific [place] Urine Protein Urine Glucose (UA) Urine Ketones Urine Blood Urine Nitrite Urine Bilirubin Urine Urobilinogen Ur Leukocyte Esterase Urine WBC (Auto) Urine RBC (Auto) Opiates Screen Methadone Screen Barbiturate Screen Phencyclidine Screen Ur Amphetamines Screen MDMA (Ecstasy) Screen Benzodiazepines Screen Cocaine Screen U Marijuana (THC) Screen Alcohol, Quantitative Anti-A Titer Cancelled Blood Type Cancelled Antibody Screen Cancelled 12/22/18 12/22/18 12/22/18 22:35 22:42 22:55 WBC RBC Hgb Hct MCV MCH MCHC RDW Plt Count MPV Absolute Neuts (auto) Neutrophils % Neutrophils % (Manual) Band Neutrophils % Lymphocytes % Lymphocytes % (Manual) Monocytes % Monocytes % (Manual) Eosinophils % Eosinophils % (Manual) Basophils % Basophils % (Manual) Myelocytes % (Man) Nucleated RBC % Platelet Estimate Macrocytosis PT with INR INR PTT (Actin FS) VBG pH POC VBG pCO2 POC VBG pO2 Mixed VBG HCO3 Sodium Potassium Chloride Carbon Dioxide Anion Gap BUN Creatinine Creat Clearance w eGFR POC Glucometer 178 Random Glucose Lactic Acid 1.6 Calcium Total Bilirubin AST ALT Alkaline Phosphatase Creatine Kinase Troponin I Total Protein Albumin Urine Color Straw Urine Appearance Clear Urine pH 5.0 Ur Specific [place] 1.012 Urine Protein 1+ H Urine Glucose (UA) Negative Urine Ketones Negative Urine Blood 1+ H Urine Nitrite Negative Urine Bilirubin Negative Urine Urobilinogen Negative Ur Leukocyte Esterase Negative Urine WBC (Auto) 3 Urine RBC (Auto) 3 Opiates Screen Methadone Screen Barbiturate Screen Phencyclidine Screen Ur Amphetamines Screen MDMA (Ecstasy) Screen Benzodiazepines Screen Cocaine Screen U Marijuana (THC) Screen Alcohol, Quantitative Anti-A Titer Blood Type Antibody Screen 12/22/18 12/22/18 12/23/18 22:55 23:30 00:26 WBC RBC Hgb Hct MCV MCH MCHC RDW Plt Count MPV Absolute Neuts (auto) Neutrophils % Neutrophils % (Manual) Band Neutrophils % Lymphocytes % Lymphocytes % (Manual) Monocytes % Monocytes % (Manual) Eosinophils % Eosinophils % (Manual) Basophils % Basophils % (Manual) Myelocytes % (Man) Nucleated RBC % Platelet Estimate Macrocytosis PT with INR INR PTT (Actin FS) VBG pH POC VBG pCO2 POC VBG pO2 Mixed VBG HCO3 Sodium Potassium Chloride Carbon Dioxide Anion Gap BUN Creatinine Creat Clearance w eGFR POC Glucometer 106 47 Random Glucose Lactic Acid Calcium Total Bilirubin AST ALT Alkaline Phosphatase Creatine Kinase Troponin I Total Protein Albumin Urine Color Urine Appearance Urine pH Ur Specific [place] Urine Protein Urine Glucose (UA) Urine Ketones Urine Blood Urine Nitrite Urine Bilirubin Urine Urobilinogen Ur Leukocyte Esterase Urine WBC (Auto) Urine RBC (Auto) Opiates Screen Positive A* Methadone Screen Negative Barbiturate Screen Negative Phencyclidine Screen Negative Ur Amphetamines Screen Negative MDMA (Ecstasy) Screen Negative Benzodiazepines Screen Negative Cocaine Screen Negative U Marijuana (THC) Screen Negative Alcohol, Quantitative Anti-A Titer Blood Type Antibody Screen 12/23/18 12/23/18 12/23/18 00:56 01:10 01:34 WBC RBC Hgb Hct MCV MCH MCHC RDW Plt Count MPV Absolute Neuts (auto) Neutrophils % Neutrophils % (Manual) Band Neutrophils % Lymphocytes % Lymphocytes % (Manual) Monocytes % Monocytes % (Manual) Eosinophils % Eosinophils % (Manual) Basophils % Basophils % (Manual) Myelocytes % (Man) Nucleated RBC % Platelet Estimate Macrocytosis PT with INR INR PTT (Actin FS) VBG pH POC VBG pCO2 POC VBG pO2 Mixed VBG HCO3 Sodium Potassium Chloride Carbon Dioxide Anion Gap BUN Creatinine Creat Clearance w eGFR POC Glucometer 270 188 Random Glucose Lactic Acid Calcium Total Bilirubin AST ALT Alkaline Phosphatase Creatine Kinase Troponin I Total Protein Albumin Urine Color Urine Appearance Urine pH Ur Specific [place] Urine Protein Urine Glucose (UA) Urine Ketones Urine Blood Urine Nitrite Urine Bilirubin Urine Urobilinogen Ur Leukocyte Esterase Urine WBC (Auto) Urine RBC (Auto) Opiates Screen Methadone Screen Barbiturate Screen Phencyclidine Screen Ur Amphetamines Screen MDMA (Ecstasy) Screen Benzodiazepines Screen Cocaine Screen U Marijuana (THC) Screen Alcohol, Quantitative < 3.0 Anti-A Titer Blood Type Antibody Screen Head CT (initial):IMPRESSION - imaging utilization reviewer No acute intracranial hemorrhage mass effect or midline shift. Mild nonspecific periventricular predominant low density throughout the deep white matter is most likely due to mild small vessel ischemic white matter disease. Calcified arteriosclerosis of the cavernous carotids and bilateral vertebral arteries noted. Subacute or chronic lacunar infarct in the left thalamus on axial image 14 measures approximately 6 mm. No evidence of a large territory of subacute stroke. Cannot exclude a small acute stroke. If there is a clinical concern for an acute or subacute stroke then follow-up evaluation with an MRI of the brain may be needed. Abd/Pelvis CT: Impression: imaging utilization reviewer 1. Extensive coronary, renal, and aortoiliac atherosclerotic vascular calcifications. 2. Sigmoid diverticulosis, without evidence of diverticulitis. 3. Otherwise, unremarkable CT of the abdomen and pelvis, given limitations of nonenhanced CT. ASSESSMENT/PLAN: 68 y/o M w/PMH of CVA, peripheral neuropathy, IDDM, CHF, HTN, WI (s/p 5 stents) , HLD, COPD, GERD, CKD, opioid dependance presents to the ER for AMS. -Altered mental status secondary to stroke vs polypharmacy (insulin overdose vs opioid abuse) -Neuro consulted, f/u recs -Head CT with possible acute stroke -Check B12, C-peptide, CRP, ESR, RPR, Thiamine, pre-albumin, TSH, A1C, lipids. F/u cultures -neurochecks, seizure precautions -Cardio consult - Dr. Orozco -D10 @ 60 ml/hr -BGMs Q1H -NPO, swallow eval -Carotid duplex US -IDDM -hold insulin for now, on D10 @ 60 ml/hr -CAD -c/w asa, plavix -HTN -restart home meds in AM -COPD -not in acute exacerbation -O2 supplementation to keep O2 sat above 90% -CKD -at baseline -DVT ppx -SCDs -FEN -D10 @ 60 ml/hr -Monitor electrolytes -NPO -Dispo: admit to ICU Visit type - Emergency Visit Emergency Visit: Yes ED Registration Date: 12/23/18 Care time: The patient presented to the Emergency Department on the above date and was hospitalized for further evaluation of their emergent condition. - New Patient This patient is new to me today: Yes Date on this admission: 12/23/18 - Critical Care Critical Care patient: Yes Total Critical Care Time (in minutes): 65 Critical Care Statement: The care of this patient involved high complexity decision making to prevent further life threatening deterioration of the patient 's condition and/or to evaluate & treat vital organ system(s) failure or risk of failure.
[2018-12-23 04:57] VITALS: BMI 21.2
[2018-12-23 06:01] LABS: BASO % 0.9 % (0-2.0); EOS % 0.5 % (0-4.5); HEMOGLOBIN 10.4 GM/dL (11.7-16.9); LYMPH % 7.6 % (8-40); MCH 33.7 pg (25.7-33.7); MCHC 32.6 g/dl (32.0-35.9); MEAN CELL VOLUME 103.4 fl (80-96); MEAN PLT VOLUME 7.5 fl (7.5-11.1); MONO % 6.8 % (3.8-10.2); NEUT % 84.2 % (42.8-82.8); PLATELET COUNT 318 K/MM3 (134-434); RBC 3.09 M/mm3 (4.00-5.60); RDW 18.8 % (11.9-15.9); WHITE BLOOD COUNT 10.1 K/mm3 (4.0-10.0)
[2018-12-23] MEDS ORDERED: DEXTROSE 10%-WATER - 1,000 ML IV SCH (06:30)
[2018-12-23 06:33] LABS: PREALBUMIN 25.2 mg/dl (20-40)
[2018-12-23 06:42] LABS: ALBUMIN 2.4 g/dl (3.4-5.0); ALK PHOS 103 U/L (45-117); ANION GAP 10 MMOL/L (8-16); BILIRUBIN,TOTAL 0.3 mg/dL (0.2-1); BLOOD UREA NITROGEN 23 mg/dL (7-18); CALCIUM 7.5 mg/dL (8.5-10.1); CHLORIDE 108 mmol/L (98-107); CO2 26 mmol/L (21-32); CREATININE 1.4 mg/dL (0.55-1.3); GLUCOSE,RANDOM 73 mg/dL (74-106); MAGNESIUM 1.1 mg/dL (1.8-2.4); PHOSPHOROUS 2.9 mg/dL (2.5-4.9); POTASSIUM 3.4 mmol/L (3.5-5.1); SGOT/AST 12 U/L (15-37); SGPT/ALT 12 U/L (13-61); SODIUM 143 mmol/L (136-145); TOT PROT 5.1 g/dl (6.4-8.2)
[2018-12-23] MEDS ORDERED: ALBUTEROL SO4 0.083% IH SOL 2.5 MG/3 ML VIAL.NEB. NEB PRN (06:49)
[2018-12-23] MEDS: ACETAMINOPHEN 325 MG TABLET (FP) PO PRN (07:07)
[2018-12-23] MEDS ORDERED: DOCUSATE SODIUM 100 MG CAPSULE (FP) PO PRN (09:15)
[2018-12-23] MEDS: oxyCODONE HCL 5 MG TABLET PO SCH ×3 (09:39→22:36)
[2018-12-23] MEDS: amLODIPine BESYLATE 5 MG TABLET (FP) PO SCH (09:47)
[2018-12-23] MEDS: hydrALAZINE HCL 10 MG TABLET PO SCH ×2 (09:47→21:36)
[2018-12-23] MEDS: ISOSORBIDE MONONITRATE 30 MG TAB.SR.24H (FP) PO SCH (09:47)
[2018-12-23] MEDS: PREGABALIN 50 MG CAPSULE PO SCH ×2 (09:47→21:36)
[2018-12-23] MEDS: CLOPIDOGREL BISULFATE 75 MG TABLET (FP) PO SCH (09:47)
[2018-12-23] MEDS: CARVEDILOL 6.25 MG TABLET (FP) PO SCH ×2 (09:47→21:36)
[2018-12-23] MEDS: BUDESONIDE/FORMETEROL FUMARATE 160/4.5 mcg INHALER IH SCH ×2 (09:48→21:38)
--- NOTE | 2018-12-23 10:09 | CON.CARD ---
Cardiology Consult (text) - Consultation Consultation Note: - Consultation Consultation Note: Chief Complaint: weakness, lethargy History of Present Illness: 68M h/o dm, ckd (1.5-2), CVA 10/2014, CAD s/p STEMI and multiple pci's, ischemic CM with systolic chf, COPD, extensive smoking history (quit 12/2016) here with lethargy for one week, has been more somnolent than usual. Blood glucose 25, improved with D50 in the ER, also received narcan hx of opiate use. Transferred to the ICU for further management, on D10 gtt. CT head cannot exclude small stroke on read overnight, final read no acute stroke. Fell overnight and hit head, repeat CT head no bleed. Currently no chest pain, palps , dizziness, lightheadedness, dyspnea. - Past Medical History [employer] WORK[employer]: Yes: CVA, Peripheral Neuropathy Cardio/Vascular: Yes: CHF, HTN, Hyperlipdemia. No: AFIB Pulmonary: Yes: COPD Gastrointestinal: Yes: Other (Colitis) Renal/: Yes: Renal Inusuff, Other (hyperkalemia) Psych: Yes: Addictions Musculoskeletal: Yes: Other (Lumbar radiculopathy) Endocrine: Yes: Diabetes Mellitus - Past Surgical History Past Surgical History: Yes: Stent - Alcohol/Substance Use Hx Alcohol Use: No History of Substance Use: reports: None - Smoking History Smoking history: ex tob - Social History Usual Living Arrangement: With Spouse ADL: Independent History of Recent Travel: No Home Medications - Allergies Allergies/Adverse Reactions: Allergies Allergy/AdvReac Type Severity Reaction Status Date / Time lansoprazole [From Prevacid] Allergy Intermediate Verified 05/24/18 07:07 - Home Medications Home Medications Medication Instructions Recorded Aspirin [Ecotrin] 81 mg PO DAILY 04/29/15 Pregabalin [Lyrica] 50 mg PO BID 03/13/17 Isosorbide Mononitrate [Isosorbide 30 mg PO DAILY 06/04/17 Mononitrate ER] Acetaminophen [Tylenol .Regular 650 mg PO Q4H PRN #90 tablet 06/10/17 Strength -] Albuterol 0.083% Nebulizer Clarisse 1 neb NEB QID PRN 10/04/17 [Ventolin 0.083% Nebulizer Soln -] Amlodipine Besylate [Norvasc -] 5 mg PO DAILY #30 tablet 10/09/17 Clopidogrel Bisulfate [Plavix -] 75 mg PO DAILY #30 tablet 10/09/17 Insulin Sliding Scale [Novolog 20 units SQ TID 05/31/18 Vial Sliding Scale -] Atorvastatin Ca [Lipitor] 40 mg PO HS 10/29/18 Budesonide/Formeterol Fumarate 2 puff IH BID 10/29/18 [SYMBICORT 160/4.5mcg -] Carvedilol [Coreg] 6.25 mg PO BID 10/29/18 Fluticasone/Salmeterol [Advair Hfa 2 puff IH BID 10/29/18 115-21 Mcg Inhaler] Hydralazine HCl 10 mg PO BID 10/29/18 Lansoprazole [Prevacid] 30 mg PO DAILY 10/29/18 Magnesium Oxide [Magnesium] 400 mg PO DAILY 10/29/18 Sodium Bicarbonate - 650 mg PO DAILY 10/29/18 Temazepam 30 mg PO BID 10/29/18 Zolpidem Tartrate [Ambien] 10 mg PO HS 10/29/18 Furosemide [Lasix -] 80 mg PO DAILY tablet 10/31/18 Family Disease History - Family Disease History Family Disease History: Diabetes: Grandparent, Sister (COPD), CA: Father, Respiratory: Sister, Other: Mother (CVA) Review of Systems - Review of Systems per hpi; no nvd, salas, vision changes, gib, hematuria, dysuria, muscle pain Physical Exam Vital Signs: Vital Signs Period Temp Pulse Resp BP Sys/Chandra Pulse Ox Last 24 Hr 97.1 F-99.0 F 62-99 11-18 116-151/61-86 95-99 nad no jvd rrr s1s2 no mrg cta bl nl eff aaox3 no le e/c/c abd nt nd pos bs no jaundice diaphoresis pos dp pt no carotid bruits Laboratory Last Values WBC 10.1 K/mm3 (4.0-10.0) H 12/23/18 05:30 RBC 3.09 M/mm3 (4.00-5.60) L 12/23/18 05:30 Hgb 10.4 GM/dL (11.7-16.9) L 12/23/18 05:30 Hct 32.0 % (35.4-49) L 12/23/18 05:30 MCV 103.4 fl (80-96) H 12/23/18 05:30 MCH 33.7 pg (25.7-33.7) 12/23/18 05:30 MCHC 32.6 g/dl (32.0-35.9) 12/23/18 05:30 RDW 18.8 % (11.9-15.9) H 12/23/18 05:30 Plt Count 318 K/MM3 (134-434) 12/23/18 05:30 MPV 7.5 fl (7.5-11.1) 12/23/18 05:30 Absolute Neuts (auto) 8.5 K/mm3 (1.5-8.0) H 12/23/18 05:30 Neutrophils % 84.2 % (42.8-82.8) H 12/23/18 05:30 Neutrophils % (Manual) 79.0 % (42.8-82.8) 12/22/18 22:30 Band Neutrophils % 0.0 % 12/22/18 22:30 Lymphocytes % 7.6 % (8-40) L 12/23/18 05:30 Lymphocytes % (Manual) 12.0 % (8-40) 12/22/18 22:30 Monocytes % 6.8 % (3.8-10.2) 12/23/18 05:30 Monocytes % (Manual) 8 % (3.8-10.2) 12/22/18 22:30 Eosinophils % 0.5 % (0-4.5) 12/23/18 05:30 Eosinophils % (Manual) 0.0 % (0-4.5) D 12/22/18 22:30 Basophils % 0.9 % (0-2.0) 12/23/18 05:30 Basophils % (Manual) 0.0 % (0-2.0) 12/22/18 22:30 Myelocytes % (Man) 1 % (0-2) 12/22/18 22:30 Nucleated RBC % 0 % (0-0) 12/23/18 05:30 Platelet Estimate Adequate 12/22/18 22:30 Macrocytosis 1+ 12/22/18 22:30 ESR 29 mm/hr (0-20) H 12/23/18 02:30 PT with INR 11.50 SEC (9.7-13.0) 12/22/18 22:30 INR 0.97 (0.83-1.09) 12/22/18 22:30 PTT (Actin FS) 33.3 SECONDS (25.2-36.5) 12/22/18 22:30 VBG pH 7.27 (7.32-7.42) L 12/22/18 22:35 POC VBG pCO2 49.2 mmHg (38-52) 12/22/18 22:35 POC VBG pO2 46.7 mmHg (28-48) 12/22/18 22:35 Mixed VBG HCO3 22.0 meq/L (19-25) 12/22/18 22:35 Sodium 143 mmol/L (136-145) 12/23/18 05:30 Potassium 3.4 mmol/L (3.5-5.1) L 12/23/18 05:30 Chloride 108 mmol/L (98-107) H 12/23/18 05:30 Carbon Dioxide 26 mmol/L (21-32) 12/23/18 05:30 Anion Gap 10 MMOL/L (8-16) 12/23/18 05:30 BUN 23 mg/dL (7-18) H 12/23/18 05:30 Creatinine 1.4 mg/dL (0.55-1.3) H 12/23/18 05:30 Creat Clearance w eGFR 50.10 (>60) 12/23/18 05:30 POC Glucometer 120 UNITS (80-120) 12/23/18 10:00 Random Glucose 73 mg/dL (74-106) L 12/23/18 05:30 Hemoglobin A1c % 6.5 % (4.2-6.3) H 12/23/18 05:30 Lactic Acid 1.6 mmol/L (0.4-2.0) 12/22/18 22:35 Calcium 7.5 mg/dL (8.5-10.1) L 12/23/18 05:30 Phosphorus 2.9 mg/dL (2.5-4.9) 12/23/18 05:30 Magnesium 1.1 mg/dL (1.8-2.4) L 12/23/18 05:30 Total Bilirubin 0.3 mg/dL (0.2-1) 12/23/18 05:30 AST 12 U/L (15-37) L 12/23/18 05:30 ALT 12 U/L (13-61) L 12/23/18 05:30 Alkaline Phosphatase 103 U/L (45-117) 12/23/18 05:30 Creatine Kinase 48 U/L (26-308) 12/23/18 05:30 Troponin I 0.06 ng/ml (0.00-0.05) H 12/23/18 05:30 C-Reactive Protein 0.8 MG/DL (0.00-0.3) H 12/23/18 00:40 Total Protein 5.1 g/dl (6.4-8.2) L 12/23/18 05:30 Albumin 2.4 g/dl (3.4-5.0) L 12/23/18 05:30 Prealbumin 25.2 mg/dl (20-40) 12/23/18 05:30 Triglycerides 72 mg/dL (0-150) 12/23/18 05:30 Cholesterol 78 mg/dL (50-200) 12/23/18 05:30 Total LDL Cholesterol 23 mg/dL (5-100) 12/23/18 05:30 HDL Cholesterol 46 mg/dL (40-60) 12/23/18 05:30 Vitamin B12 959 pg/ml (193-986) 12/23/18 00:40 Serum Folate 7 ng/mL (3.1-17.5) 12/23/18 05:30 TSH 0.30 uIU/ml (0.358-3.74) L D 12/23/18 05:30 Urine Color Straw 12/22/18 22:55 Urine Appearance Clear 12/22/18 22:55 Urine pH 5.0 (5.0-8.0) 12/22/18 22:55 Ur Specific [place] 1.012 (1.010-1.035) 12/22/18 22:55 Urine Protein 1+ (NEGATIVE) H 12/22/18 22:55 Urine Glucose (UA) Negative (NEGATIVE) 12/22/18 22:55 Urine Ketones Negative (NEGATIVE) 12/22/18 22:55 Urine Blood 1+ (NEGATIVE) H 12/22/18 22:55 Urine Nitrite Negative (NEGATIVE) 12/22/18 22:55 Urine Bilirubin Negative (<2.0 mg/dL) 12/22/18 22:55 Urine Urobilinogen Negative mg/dL (0.2-1.0) 12/22/18 22:55 Ur Leukocyte Esterase Negative (NEGATIVE) 12/22/18 22:55 Urine WBC (Auto) 3 /hpf (3-5) 12/22/18 22:55 Urine RBC (Auto) 3 /hpf (0-3) 12/22/18 22:55 Opiates Screen Positive ng/ml (WHUDLD=248) A* 12/22/18 22:55 Methadone Screen Negative ng/ml (IIGZHE=531) 12/22/18 22:55 Barbiturate Screen Negative ng/ml (KOZVCI=328) 12/22/18 22:55 Phencyclidine Screen Negative ng/ml (CUTOFF=25) 12/22/18 22:55 Ur Amphetamines Screen Negative ng/ml (VCZRMC=995) 12/22/18 22:55 MDMA (Ecstasy) Screen Negative ng/ml (WPYVDF=378) 12/22/18 22:55 Benzodiazepines Screen Negative ng/ml (PDUOAW=144) 12/22/18 22:55 Cocaine Screen Negative ng/ml (OOADPR=466) 12/22/18 22:55 U Marijuana (THC) Screen Negative ng/ml (CUTOFF=50) 12/22/18 22:55 Alcohol, Quantitative < 3.0 mg/dL (0.0-5.0) 12/23/18 01:10 Anti-A Titer Cancelled 12/22/18 22:30 Blood Type Cancelled 12/22/18 22:30 Antibody Screen Cancelled 12/22/18 22:30 ecg: sr, 1avb, rbbb. inf q's, PVCs CXR: central congestion, stable compared to prior [facility] 05/15: 70-80% mRCA (ISR), 70-80% RPDA (ISR); 70-80% mLAD; 80-90% pLCX (small vessel); 90-95% OM2 (large vessel); 80-90% prox Ramus (large vessel) ...nonobstructive dz of note -78% ostial RCA, 50-60% eccentric lesion OM1 (large vessel); EDP 30-->25 post-nitro EF 38% (diffuse WMAs) Syntax score 20 Echo 10/29/18: mod LVE, mild global LV hypo (45-50%). RV tds. mild TR. no vegetations noted Echo 05/15: mod to sev decr LVEF; severe hypokinesis of all [place] except basal segments. nl RV. mild MR/TR. no peric eff. 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: sinus, 1st deg AVB, PVCs a/p: 68 year old male with a history of dm, ckd (1.5-2), CVA 10/2014, CAD s/p STEMI and multiple pci's, ischemic CM with systolic chf, COPD, extensive smoking history (now quit 12/2016) here with lethargy, hypoglycemia, stroke lethargy - likely in setting of hypoglycemia - manage per ICU, blood sugar improved - neuro consulted hx CVA -dx'd lacunar infarct 02/10 clinically then (slurred speech) -? acute CVA/TIA 11/13, seen by neuro then--ASA added to prior plavix at that time - stroke noted on CT head here, likely not acute - neurology consulted - monitoring on tele - on aspirin and plavix for recurrent strokes, continue CAD: -2004 s/p PCI ([facility]) to 100% occl RPDA ([facility]) with patent prior RCA stents at that time, EF 50% then; -2011 s/p anterior STEMI 2011 with [place] LIBBY x 2 to mid LAD then ([facility]); residual 80% prox D1 (large vessel), 95% mD1; 70%mRCA (pre and post prior stents), 70% dCFX; (also 40% RPDA; 60% pCFX; 40% mCFX;) EF then 37% with AK of apex/AL lindsey and AK of IW; -04/2017 s/p NSTEMI in setting of sepsis/PNA-->[facility] with 70-80% mRCA (ISR), 70-80 % RPDA (ISR); 70-80% mLAD; 80-90% pLCX (small vessel); 90-95% OM2 (large vessel) ; 80-90% prox Ramus (large vessel), 30-50% ostial RCA, 50-60% eccentric lesion OM1 (large vessel); -pt declined cabg twice after that, and has not followed up with us since then ( previously dr suarez pt, stopped seeing him) -no signs ACS here -on ASA and plavix from before (for recurrent CVAs)--cont same -cont home BB, statin, imdur -pt should f/u with us in office and discuss percutaneous revascularization options if he declines CABG (consider ischemia-driven strategy electively, as outpt) isch CMP/ chronic syst CHF: -currently mildly reduced EF on echo -cont home coreg, imdur, hydralazine for chf regimen -h/o BRANT (creat to 2.5) with WENDY in past--stopped. re-trial with lower dose WENDY not possible as pt would have to f/u in office for frequent labs and he is non- compliant holding home lasix in setting of BRANT HTN: -bp stable -cont current meds BRANT on CKD: -cr freq fluctuates 1.5-2.9 on past admits here - holding home lasix abnl ecg, mobitz I 2nd degree AVB, chronic: -seen on tele here on several occasions, no significant pauses, benign.
[2018-12-23 12:49] LABS: ANISOCYTOSIS 1+; MACROCYTOSIS 1+; OVALOCYTE 1+; PLATELET ESTIMATE NORMAL; TARGET CELLS 1+
--- NOTE | 2018-12-23 14:38 | PN ---
Progress Note, Physician Chief Complaint: Mr Scott complains of pain in his left leg secondary to bruising. No cp, sob, n /v. - Current Medication List Current Medications: Active Medications Acetaminophen (Tylenol -) 650 mg PO Q6H PRN PRN Reason: PAIN Last Admin: 12/23/18 07:07 Dose: 650 mg Albuterol Sulfate (Ventolin 0.083% Nebulizer Soln -) 1 amp NEB Q6H PRN PRN Reason: SHORT OF BREATH/WHEEZING Amlodipine Besylate (Norvasc -) 5 mg PO DAILY [facility] Last Admin: 12/23/18 09:47 Dose: 5 mg Budesonide/Formoterol Fumarate (Symbicort 160/4.5mcg -) 2 puff IH BID [facility] Last Admin: 12/23/18 09:48 Dose: 2 puff Carvedilol (Coreg -) 6.25 mg PO BID [facility] Last Admin: 12/23/18 09:47 Dose: 6.25 mg Chlorhexidine Gluconate (Hibiclens For Decolonization -) 1 applic TP HS [facility] Clopidogrel Bisulfate (Plavix -) 75 mg PO DAILY [facility] Last Admin: 12/23/18 09:47 Dose: 75 mg Docusate Sodium (Colace -) 100 mg PO BID PRN PRN Reason: CONSTIPATION Hydralazine HCl (Apresoline -) 10 mg PO BID [facility] Last Admin: 12/23/18 09:47 Dose: 10 mg Isosorbide Mononitrate (Imdur -) 30 mg PO DAILY [facility] Last Admin: 12/23/18 09:47 Dose: 30 mg Mupirocin (Bactroban Ointment (For Decolonization) -) 1 applic NS BID [facility] Stop: 12/28/18 09:59 Oxycodone HCl (Roxicodone -) 10 mg PO Q6H [facility] Last Admin: 12/23/18 09:39 Dose: 10 mg Pregabalin (Lyrica -) 50 mg PO BID [facility] Last Admin: 12/23/18 09:47 Dose: 50 mg - Objective Vital Signs: Vital Signs Temperature 36.6 C 12/23/18 10:00 Pulse Rate 79 12/23/18 10:00 Respiratory Rate 12 12/23/18 10:00 Blood Pressure 142/77 12/23/18 10:00 O2 Sat by Pulse Oximetry (%) 97 12/23/18 09:00 Constitutional: Yes: Well Nourished, No Distress, Calm Cardiovascular: Yes: Regular Rate and Rhythm. No: Gallop, Murmur, Rub Respiratory: Yes: Regular, CTA Bilaterally. No: Rales, Rhonchi, Wheezes Gastrointestinal: Yes: Normal Bowel Sounds, Soft. No: Distention, Tenderness Extremities: Yes: WNL Edema: No Labs: CBC, BMP 12/23/18 05:30 12/23/18 05:30 INR, PTT INR 0.97 (0.83-1.09) 12/22/18 22:30 Problem List - Problems (1) Hypoglycemia Code(s): E16.2 - HYPOGLYCEMIA, UNSPECIFIED (2) CAD (coronary artery disease) Code(s): I25.10 - ATHSCL HEART DISEASE OF [place] CORONARY ARTERY W/O ANG PCTRS Qualifiers: [place] vs. transplanted heart: [place] heart Associated angina: without angina (3) CKD (chronic kidney disease) Code(s): N18.9 - CHRONIC KIDNEY DISEASE, UNSPECIFIED Qualifiers: Chronic kidney disease stage: stage 2 (mild) Qualified Code(s): N18.2 - Chronic kidney disease, stage 2 (mild) (4) COPD (chronic obstructive pulmonary disease) Code(s): J44.9 - CHRONIC OBSTRUCTIVE PULMONARY DISEASE, UNSPECIFIED (5) Cardiomyopathy Code(s): I42.9 - CARDIOMYOPATHY, UNSPECIFIED (6) Chronic pain Code(s): G89.29 - OTHER CHRONIC PAIN (7) Congestive heart failure (CHF) Code(s): I50.9 - HEART FAILURE, UNSPECIFIED (8) Diabetes mellitus Code(s): E11.9 - TYPE 2 DIABETES MELLITUS WITHOUT COMPLICATIONS Qualifiers: Diabetes mellitus type: type 2 Diabetes mellitus custodial insulin use: with terminologist use Diabetes mellitus complication status: with circulatory complication Diabetes mellitus complication detail: with peripheral angiopathy with gangrene Qualified Code(s): E11.52 - Type 2 diabetes mellitus with diabetic peripheral angiopathy with gangrene (9) Fall Code(s): W19.XXXA - UNSPECIFIED FALL, INITIAL ENCOUNTER Qualifiers: Encounter type: initial encounter Qualified Code(s): W19.XXXA - Unspecified fall, initial encounter (10) Hyperlipidemia Code(s): E78.5 - HYPERLIPIDEMIA, UNSPECIFIED (11) Hypertension Code(s): I10 - ESSENTIAL (PRIMARY) HYPERTENSION Qualifiers: Hypertension type: essential hypertension Qualified Code(s): I10 - Essential (primary) hypertension Assessment/Plan -glucose has improved -can stop IVF -continue diet -continue home regimen -PT consult since has pain in leg -plan for discharge tomorrow after seen by PT
[2018-12-23] MEDS: MUPIROCIN 2% TOPICAL OINTMENT FOR DECOLONIZATION NS SCH ×2 (16:54→21:36)
[2018-12-23] MEDS ORDERED: HYDROmorphone HCl 2 MG/ML VIAL IVPUSH ONE (17:45)
[2018-12-23] MEDS ORDERED: oxyCODONE HCL 5 MG TABLET PO ONE (20:04)
[2018-12-23] MEDS ORDERED: PT OWN MED DRAWER 7, Y5N ONE (21:29)
[2018-12-23] MEDS ORDERED: ZOLPIDEM TARTRATE 5 MG TABLET PO PRN ×2 (21:53→22:37)
[2018-12-23] MEDS ORDERED: CHLORHEXIDINE GLUCONATE 4% CLEANSER FOR DECOLONIZATION TP SCH (22:00)
[2018-12-23] MEDS ORDERED: TEMAZEPAM 15 MG CAPSULE PO SCH (22:00)
--- NOTE | 2018-12-23 22:09 | EKG ---
Test Reason : Blood Pressure : / mmHG Vent. Rate : 075 BPM Atrial Rate : 078 BPM P-R Int : 000 ms QRS Dur : 136 ms QT Int : 430 ms P-R-T Axes : 009 -61 079 degrees QTc Int : 480 ms UNDETERMINED RHYTHM , LIKELY SINUS RHYTHM WITH PREMATURE VENTRICULAR COMPLEX LEFT AXIS DEVIATION RIGHT BUNDLE BRANCH BLOCK LEFT VENTRICULAR HYPERTROPHY WITH REPOLARIZATION ABNORMALITY INFERIOR INFARCT (CITED ON OR BEFORE 16-SEP-2001) ANTERIOR INFARCT (CITED ON OR BEFORE 10-MAR-2013) ABNORMAL ECG WHEN COMPARED WITH ECG OF 29-OCT-2018 10:17, T WAVE VARIATION PREMATURE VENTRICULAR COMPLEXES ARE SEEN Confirmed by ELISABET BOYER MD ([id number]) on 12/23/2018 10:09:31 PM Referred By: Confirmed By:ELISABET BOYER MD
[2018-12-24] MEDS: oxyCODONE HCL 5 MG TABLET PO SCH ×3 (03:30→15:09)
[2018-12-24 05:53] LABS: BASO % 1.5 % (0-2.0); EOS % 2.7 % (0-4.5); HEMATOCRIT 31.5 % (35.4-49); HEMOGLOBIN 10.4 GM/dL (11.7-16.9); LYMPH % 8.2 % (8-40); MCH 33.6 pg (25.7-33.7); MEAN CELL VOLUME 101.7 fl (80-96); MEAN PLT VOLUME 7.5 fl (7.5-11.1); MONO % 7.1 % (3.8-10.2); NEUT % 80.5 % (42.8-82.8); PLATELET COUNT 279 K/MM3 (134-434); RBC 3.09 M/mm3 (4.00-5.60); RDW 18.5 % (11.9-15.9); WHITE BLOOD COUNT 10.4 K/mm3 (4.0-10.0)
[2018-12-24 06:18] LABS: ANION GAP 11 MMOL/L (8-16); BLOOD UREA NITROGEN 17 mg/dL (7-18); CALCIUM 7.4 mg/dL (8.5-10.1); CHLORIDE 108 mmol/L (98-107); CO2 26 mmol/L (21-32); GLUCOSE,RANDOM 100 mg/dL (74-106); POTASSIUM 3.5 mmol/L (3.5-5.1); SODIUM 144 mmol/L (136-145)
[2018-12-24] MEDS ORDERED: NAPH,MB-DB/K PH,MBDB POWDER PACKET PO ONE (08:00)
[2018-12-24] MEDS ORDERED: MAGNESIUM SULF 50% (8.12 MEQ/2 ML-1 GM VIAL) IVPB ONE (08:15)
[2018-12-24] MEDS: ACETAMINOPHEN 325 MG TABLET (FP) PO PRN ×2 (08:18→15:12)
--- NOTE | 2018-12-24 08:25 | PN ---
Physical Exam: SUBJECTIVE: Patient seen and examined Pt lying in bed on nasal canula complains of pain in left side of hip and L ankle: XRay of L leg leg didnt show any acute pathology on left ankle. have some edema b/l ankle. Althouh Pt is able to flex his hip joint but we will still get Xray hips as he has a h/o fall. Pt evaluation pending. No episodes of hypoglycemia overnight. Pt states he mixed us his meds in home and that's why he became hypoglycemia and as per pt this is the first time it happen to him CT head x 3 reviewed no acute pathology. Pt is alert, oriented. OBJECTIVE: Vital Signs Period Temp Pulse Resp BP Sys/Chandra Pulse Ox Last 24 Hr 97.9 F-99.2 F 79-86 12-19 137-156/45-94 97-97 GENERAL: The patient is awake, alert, and fully oriented, in no acute distress. HEAD: Normal with no signs of trauma. NECK: Trachea midline, full range of motion, supple. LUNGS: Breath sounds equal, clear to auscultation bilaterally, no wheezes, HEART: Regular rate and rhythm, S1, S2 ABDOMEN: Soft, nontender, nondistended, normoactive bowel sounds, no guarding, no rebound, no hepatosplenomegaly, no masses. EXTREMITIES: warm, well-perfused, mild edema at b/l ankles NEUROLOGICAL: Normal speech, PSYCH: Normal mood, normal affect. SKIN: Warm, dry, Laboratory Results - last 24 hr 12/23/18 12/23/18 12/23/18 02:30 05:30 05:30 WBC RBC Hgb Hct MCV MCH MCHC RDW Plt Count MPV Absolute Neuts (auto) Neutrophils % Neutrophils % (Manual) 80.0 Band Neutrophils % 0.0 Lymphocytes % Lymphocytes % (Manual) 10.0 Monocytes % Monocytes % (Manual) 8 Eosinophils % Eosinophils % (Manual) 1.0 D Basophils % Basophils % (Manual) 0.0 Myelocytes % (Man) 1 Promyelocytes % (Man) 0 Blast Cells % (Manual) 0 Nucleated RBC % Metamyelocytes 0 D Hypochromia 0 Platelet Estimate Normal Polychromasia 1+ Poikilocytosis 1+ Anisocytosis 1+ Microcytosis 0 Macrocytosis 1+ Target Cells 1+ Ovalocytes 1+ Schistocytes 1+ Sodium Potassium Chloride Carbon Dioxide Anion Gap BUN Creatinine Creat Clearance w eGFR POC Glucometer Random Glucose Hemoglobin A1c % 6.5 H Calcium Phosphorus Magnesium RPR Titer Nonreactive 12/23/18 12/23/18 12/23/18 08:31 10:00 11:14 WBC RBC Hgb Hct MCV MCH MCHC RDW Plt Count MPV Absolute Neuts (auto) Neutrophils % Neutrophils % (Manual) Band Neutrophils % Lymphocytes % Lymphocytes % (Manual) Monocytes % Monocytes % (Manual) Eosinophils % Eosinophils % (Manual) Basophils % Basophils % (Manual) Myelocytes % (Man) Promyelocytes % (Man) Blast Cells % (Manual) Nucleated RBC % Metamyelocytes Hypochromia Platelet Estimate Polychromasia Poikilocytosis Anisocytosis Microcytosis Macrocytosis Target Cells Ovalocytes Schistocytes Sodium Potassium Chloride Carbon Dioxide Anion Gap BUN Creatinine Creat Clearance w eGFR POC Glucometer 113 120 120 Random Glucose Hemoglobin A1c % Calcium Phosphorus Magnesium RPR Titer 12/23/18 12/23/18 12/23/18 12:22 13:00 14:46 WBC RBC Hgb Hct MCV MCH MCHC RDW Plt Count MPV Absolute Neuts (auto) Neutrophils % Neutrophils % (Manual) Band Neutrophils % Lymphocytes % Lymphocytes % (Manual) Monocytes % Monocytes % (Manual) Eosinophils % Eosinophils % (Manual) Basophils % Basophils % (Manual) Myelocytes % (Man) Promyelocytes % (Man) Blast Cells % (Manual) Nucleated RBC % Metamyelocytes Hypochromia Platelet Estimate Polychromasia Poikilocytosis Anisocytosis Microcytosis Macrocytosis Target Cells Ovalocytes Schistocytes Sodium Potassium Chloride Carbon Dioxide Anion Gap BUN Creatinine Creat Clearance w eGFR POC Glucometer 161 189 148 Random Glucose Hemoglobin A1c % Calcium Phosphorus Magnesium RPR Titer 12/23/18 12/23/18 12/23/18 16:10 17:59 21:09 WBC RBC Hgb Hct MCV MCH MCHC RDW Plt Count MPV Absolute Neuts (auto) Neutrophils % Neutrophils % (Manual) Band Neutrophils % Lymphocytes % Lymphocytes % (Manual) Monocytes % Monocytes % (Manual) Eosinophils % Eosinophils % (Manual) Basophils % Basophils % (Manual) Myelocytes % (Man) Promyelocytes % (Man) Blast Cells % (Manual) Nucleated RBC % Metamyelocytes Hypochromia Platelet Estimate Polychromasia Poikilocytosis Anisocytosis Microcytosis Macrocytosis Target Cells Ovalocytes Schistocytes Sodium Potassium Chloride Carbon Dioxide Anion Gap BUN Creatinine Creat Clearance w eGFR POC Glucometer 172 146 138 Random Glucose Hemoglobin A1c % Calcium Phosphorus Magnesium RPR Titer 12/23/18 12/24/18 12/24/18 23:00 02:43 05:13 WBC RBC Hgb Hct MCV MCH MCHC RDW Plt Count MPV Absolute Neuts (auto) Neutrophils % Neutrophils % (Manual) Band Neutrophils % Lymphocytes % Lymphocytes % (Manual) Monocytes % Monocytes % (Manual) Eosinophils % Eosinophils % (Manual) Basophils % Basophils % (Manual) Myelocytes % (Man) Promyelocytes % (Man) Blast Cells % (Manual) Nucleated RBC % Metamyelocytes Hypochromia Platelet Estimate Polychromasia Poikilocytosis Anisocytosis Microcytosis Macrocytosis Target Cells Ovalocytes Schistocytes Sodium Potassium Chloride Carbon Dioxide Anion Gap BUN Creatinine Creat Clearance w eGFR POC Glucometer 148 125 103 Random Glucose Hemoglobin A1c % Calcium Phosphorus Magnesium RPR Titer 12/24/18 12/24/18 05:15 05:15 WBC 10.4 H RBC 3.09 L Hgb 10.4 L Hct 31.5 L MCV 101.7 H MCH 33.6 MCHC 33.0 RDW 18.5 H Plt Count 279 MPV 7.5 Absolute Neuts (auto) 8.4 H Neutrophils % 80.5 Neutrophils % (Manual) Band Neutrophils % Lymphocytes % 8.2 Lymphocytes % (Manual) Monocytes % 7.1 Monocytes % (Manual) Eosinophils % 2.7 D Eosinophils % (Manual) Basophils % 1.5 Basophils % (Manual) Myelocytes % (Man) Promyelocytes % (Man) Blast Cells % (Manual) Nucleated RBC % 0 Metamyelocytes Hypochromia Platelet Estimate Polychromasia Poikilocytosis Anisocytosis Microcytosis Macrocytosis Target Cells Ovalocytes Schistocytes Sodium 144 Potassium 3.5 Chloride 108 H Carbon Dioxide 26 Anion Gap 11 BUN 17 Creatinine 1.0 Creat Clearance w eGFR > 60 POC Glucometer Random Glucose 100 Hemoglobin A1c % Calcium 7.4 L Phosphorus 2.0 L Magnesium 1.0 L RPR Titer Active Medications Generic Name Dose Route Start Last Admin Trade Name Freq PRN Reason Stop Dose Admin Acetaminophen 650 mg 12/23/18 06:40 12/23/18 07:07 Tylenol - PO 650 mg Q6H PRN Administration PAIN Albuterol Sulfate 1 amp 12/23/18 06:49 Ventolin 0.083% Nebulizer Soln - NEB Q6H PRN SHORT OF BREATH/WHEEZING Amlodipine Besylate 5 mg 12/23/18 10:00 12/23/18 09:47 Norvasc - PO 5 mg DAILY RADHA Administration Budesonide/Formoterol Fumarate 2 puff 12/23/18 10:00 12/23/18 21:38 Symbicort 160/4.5mcg - IH 2 puff BID RADHA Administration Carvedilol 6.25 mg 12/23/18 10:00 12/23/18 21:36 Coreg - PO 6.25 mg BID RADHA Administration Chlorhexidine Gluconate 1 applic 12/23/18 22:00 12/23/18 21:36 Hibiclens For Decolonization - TP 1 applic HS RADHA Administration Clopidogrel Bisulfate 75 mg 12/23/18 10:00 12/23/18 09:47 Plavix - PO 75 mg DAILY RADHA Administration Docusate Sodium 100 mg 12/23/18 09:15 Colace - PO BID PRN CONSTIPATION Hydralazine HCl 10 mg 12/23/18 10:00 12/23/18 21:36 Apresoline - PO 10 mg BID RADHA Administration Isosorbide Mononitrate 30 mg 12/23/18 10:00 12/23/18 09:47 Imdur - PO 30 mg DAILY RADHA Administration Mupirocin 1 applic 12/23/18 10:00 12/23/18 21:36 Bactroban Ointment (For Decolonization) - NS 12/28/18 09:59 1 applic BID RADHA Administration Oxycodone HCl 10 mg 12/23/18 09:15 12/24/18 03:30 Roxicodone - PO Not Given Q6H RADHA Pregabalin 50 mg 12/23/18 10:00 12/23/18 21:36 Lyrica - PO 50 mg BID RADHA Administration Temazepam 30 mg 12/23/18 22:00 12/23/18 22:55 Restoril - PO 30 mg HS RADHA Administration Zolpidem Tartrate 10 mg 12/23/18 22:37 12/23/18 22:55 Ambien - PO 10 mg HS PRN Administration INSOMNIA ASSESSMENT/PLAN: (1) Hypoglycemia likely because of accidental insulin overdose. maintaing blood glucose now on diabetic diet monitor blood glucose 2 CAD -c/w asa, plavix -HTN continue home meds coreg and amlodipine, imdur, hydralazine -COPD not in acute exacerbation O2 supplementation to keep O2 sat above 90%. uses 7 L of o2 in home continue neb and symbicort -CKD at baseline chronic neck pain : on oxycodone and lyrica -DVT ppx SCDs -FEN orally allowed monitor electrolyte diabetic diet -Dispo: can be dc after pt evaluation -glucose has improved -can stop IVF -continue diet -continue home regimen -PT consult since has pain in leg -plan for discharge tomorrow after seen by PT Visit type - Emergency Visit Emergency Visit: Yes ED Registration Date: 12/23/18 Care time: The patient presented to the Emergency Department on the above date and was hospitalized for further evaluation of their emergent condition. - New Patient This patient is new to me today: Yes Date on this admission: 12/24/18 - Critical Care Critical Care patient: No
--- NOTE | 2018-12-24 09:38 | PN ---
Progress Note, Physician Chief Complaint: somnolence, lethargy History of Present Illness: denies sob, orthopnea, palpitations, cp, leg swelling ex cigs - Current Medication List Current Medications: Active Medications Acetaminophen (Tylenol -) 650 mg PO Q6H PRN PRN Reason: PAIN Last Admin: 12/24/18 08:18 Dose: 650 mg Albuterol Sulfate (Ventolin 0.083% Nebulizer Soln -) 1 amp NEB Q6H PRN PRN Reason: SHORT OF BREATH/WHEEZING Amlodipine Besylate (Norvasc -) 5 mg PO DAILY [facility] Last Admin: 12/23/18 09:47 Dose: 5 mg Aspirin (Ecotrin -) 81 mg PO DAILY [facility] Budesonide/Formoterol Fumarate (Symbicort 160/4.5mcg -) 2 puff IH BID [facility] Last Admin: 12/23/18 21:38 Dose: 2 puff Carvedilol (Coreg -) 6.25 mg PO BID [facility] Last Admin: 12/23/18 21:36 Dose: 6.25 mg Chlorhexidine Gluconate (Hibiclens For Decolonization -) 1 applic TP HS [facility] Last Admin: 12/23/18 21:36 Dose: 1 applic Clopidogrel Bisulfate (Plavix -) 75 mg PO DAILY [facility] Last Admin: 12/23/18 09:47 Dose: 75 mg Docusate Sodium (Colace -) 100 mg PO BID PRN PRN Reason: CONSTIPATION Hydralazine HCl (Apresoline -) 10 mg PO BID [facility] Last Admin: 12/23/18 21:36 Dose: 10 mg Isosorbide Mononitrate (Imdur -) 30 mg PO DAILY [facility] Last Admin: 12/23/18 09:47 Dose: 30 mg Mupirocin (Bactroban Ointment (For Decolonization) -) 1 applic NS BID [facility] Stop: 12/28/18 09:59 Last Admin: 12/23/18 21:36 Dose: 1 applic Oxycodone HCl (Roxicodone -) 10 mg PO Q6H [facility] Last Admin: 12/24/18 08:15 Dose: 10 mg Pregabalin (Lyrica -) 50 mg PO BID [facility] Last Admin: 12/23/18 21:36 Dose: 50 mg Temazepam (Restoril -) 30 mg PO HS [facility] Last Admin: 12/23/18 22:55 Dose: 30 mg Zolpidem Tartrate (Ambien -) 10 mg PO HS PRN PRN Reason: INSOMNIA Last Admin: 12/23/18 22:55 Dose: 10 mg - Objective Vital Signs: Vital Signs Temperature 98.2 F 12/24/18 06:00 Pulse Rate 81 12/24/18 06:00 Respiratory Rate 19 12/24/18 06:00 Blood Pressure 143/66 12/24/18 06:00 O2 Sat by Pulse Oximetry (%) 97 12/23/18 22:00 Constitutional: Yes: No Distress, Calm Eyes: No: Sclera Icterus HENT: No: Nasal Congestion Cardiovascular: Yes: Regular Rate and Rhythm, S1, S2, Other (PMI non diplaced). No: JVD, Gallop, Murmur Respiratory: Yes: CTA Bilaterally. No: Accessory Muscle Use, Rales, Wheezes Gastrointestinal: Yes: Normal Bowel Sounds, Soft. No: Tenderness Musculoskeletal: Yes: Other (No kyphosis) Extremities: No: Cold Edema: No Integumentary: No: Jaundice Neurological: Yes: Alert, Oriented (x3) Psychiatric: No: Agitated Labs: CBC, BMP 12/24/18 05:15 12/24/18 05:15 INR, PTT INR 0.97 (0.83-1.09) 12/22/18 22:30 Assessment/Plan ecg: sr, 1avb, rbbb. inf q's, PVCs CXR: central congestion, stable compared to prior [facility] 05/15: 70-80% mRCA (ISR), 70-80% RPDA (ISR); 70-80% mLAD; 80-90% pLCX (small vessel); 90-95% OM2 (large vessel); 80-90% prox Ramus (large vessel) ...nonobstructive dz of note [id number]% ostial RCA, 50-60% eccentric lesion OM1 (large vessel); EDP 30-->25 post-nitro EF 38% (diffuse WMAs) Syntax score 20 Echo 10/29/18: mod LVE, mild global LV hypo (45-50%). RV tds. mild TR. no vegetations noted Echo 05/15: mod to sev decr LVEF; severe hypokinesis of all lindsey except basal segments. nl RV. mild MR/TR. no peric eff. 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: NSR/sinus tach, 11 beats run VT a/p: 68 year old male with a history of dm, ckd (1.5-2), CVA 10/2014, CAD s/p STEMI and multiple pci's, ischemic CM with systolic chf, COPD, extensive smoking history (now quit 12/2016) here with lethargy, hypoglycemia, stroke lethargy - likely in setting of hypoglycemia - manage per ICU, blood sugar improved - neuro consulted hx CVA -dx'd lacunar infarct 2013 clinically then (slurred speech) -? acute CVA/TIA 2014, seen by neuro then--ASA added to prior plavix at that time - stroke noted on CT head here, likely not acute - neuro consulted, awaiting their recs - on aspirin and plavix for recurrent strokes, continue CAD: -2004 s/p PCI ([facility]) to 100% occl RPDA ([facility]) with patent prior RCA stents at that time, EF 50% then; -2011 s/p anterior STEMI 2011 with [place] LIBBY x 2 to mid LAD then ([facility]); residual 80% prox D1 (large vessel), 95% mD1; 70%mRCA (pre and post prior stents), 70% dCFX; (also 40% RPDA; 60% pCFX; 40% mCFX;) EF then 37% with AK of apex/AL lindsey and AK of IW; -2016 s/p NSTEMI in setting of sepsis/PNA-->[facility] with 70-80% mRCA (ISR), 70-80% RPDA (ISR); 70-80% mLAD; 80-90% pLCX (small vessel); 90-95% OM2 (large vessel); 80-90% prox Ramus (large vessel), 30-50% ostial RCA, 50-60% eccentric lesion OM1 (large vessel); -pt declined cabg twice after that, and has not followed up with cardiology in office -no signs ACS here -on ASA and plavix from before (for recurrent CVAs)--cont same -cont home BB, statin, imdur -outpt cardio followup if pt willing isch CMP/ chronic syst CHF: -mildly reduced EF on last echo -cont home coreg, imdur, hydralazine for chf regimen -h/o BRANT (creat to 2.5) with WENDY in past--stopped. re-trial with lower dose WENDY not possible as pt would have to f/u in office for frequent labs and he is non- compliant - holding home lasix in setting of BRANT V Tach: - EF preserved 45-50%, hence low risk for malignant VT/VF. no signs acute myocardial ischemia. - K and Mag need repletion--target >4/2, d/w'd ICU residents team on rounds - continue carvedilol (dose incr'd here) HTN: -bp reasonably controlled, above target -incr carvedilol 6.25 to 12.5 bid BRANT on CKD: -cr freq fluctuates 1.5-2.9 on past admits here - holding home lasix - renal fxn normalized abnl ecg, mobitz I 2nd degree AVB, chronic: -seen on tele here on several occasions, no significant pauses, benign. anemia: -H/H stable (improved) vs prior baseline -monitor trend on DAPT regimen
[2018-12-24] MEDS: PREGABALIN 50 MG CAPSULE PO SCH (09:44)
[2018-12-24] MEDS: CARVEDILOL 6.25 MG TABLET (FP) PO SCH (09:45)
[2018-12-24] MEDS: CLOPIDOGREL BISULFATE 75 MG TABLET (FP) PO SCH (09:45)
[2018-12-24] MEDS: ISOSORBIDE MONONITRATE 30 MG TAB.SR.24H (FP) PO SCH (09:45)
[2018-12-24] MEDS: amLODIPine BESYLATE 5 MG TABLET (FP) PO SCH (09:45)
[2018-12-24] MEDS: hydrALAZINE HCL 10 MG TABLET PO SCH (09:48)
[2018-12-24] MEDS ORDERED: PT OWN MED DRAWER 7, Y5N ONE (09:48)
[2018-12-24] MEDS: MUPIROCIN 2% TOPICAL OINTMENT FOR DECOLONIZATION NS SCH (09:49)
[2018-12-24] MEDS: BUDESONIDE/FORMETEROL FUMARATE 160/4.5 mcg INHALER IH SCH (09:53)
--- NOTE | 2018-12-24 09:56 | CONSULT ---
Consult - text type - Consultation Consultation Note: NEUROLOGY CONSULT APPRECIATED: Event reviewed and discussed with staff. Cardiology and Pulm reports read and appreciated. 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 He reports he is independent with walking and administering his own meds. Admitted to hospital due to reports of low blood sugar late Monday evening 12/22/18 with confusion. He reports a fall out of the ED bed onto his head and left side of his body. He is a vague historian regarding recent events. Today complaining of L hip pain. PMXH: HTN, DM, HLD, CVA, CAD s/p 6 stents, WI, CHF, COPD, CKD, chronic pain and insomnia Medications: ASA 81, Isosorbide, albuterol, amlodipine, plavix, insulin, atorvastatin, symbicort, carvedilol, advair, hydralazine, mag oxide, temazepam 30 mg BID, zolpidem, lasix, lyrica. Social History: former smoker, denies ETOH or recreational drug use. Review of systems significant for chronic insomnia attributed to nocturnal back pain and "tingling in his legs and feet. Serial Head CTs (reviewed): chronic microvascular changes, chronic infarct R cerebellum; Calcified intacranial Basilar artery. CT of C spine: multilevel DJD; tib/fib xray: -; CT ab/pelvis: scattered vascular calcifications Labs: MC 104.1 TSH 0.30, Folate 7, B12, 959, RPR non-reactive; CRP 0.8, albumin 2.9, MG 1.0, A1c 6.5, Tox + for opiates (?) BUT NEG for Benzos (?) DAFNE: Cor reg, (-) bruit, Scattered bruising to left confucianism and forearm, (-) SLR , (+) Dc's on left NEURO EXAM: Mentation/Speech: [facility]. November. 2018. YULIAEMMANUEL does not attempt reverse 3/3 recall at 3. CNII-CNXII: EOM intact and full pena appreciated. Both pupils pinpoint. Motor: No drift or tremor. Strength normal in distal groups. Reflexes symmetric throughout. Toes downgoing. Coordination: Mild FTN dystaxia R. Sensation: Decreased vibration up to knees B/L. Gait: Deferred. Impression: 1. Hypertensive microvascular disease. 2. Sensory Peripheral Neuropathy (c/w Diabetes or vitamin deficiency) 3. Confusion due to Toxic-Metabolic Encephalpathy with possible contributions from Hypomagnesemia; Opoid intoxication (pinpoint pupils ); benzodiazepine withdrawal; occult infection; Thiamine deficiency. 4. Asymptomatic head trauma. Suggest: Start Thiamine 250 mg TID x 3 days, one dose stat Pending Vit B6, B1 levels, ammonia level, Fe++, TIBC, Ferritin Currently on lasix hold per cardio, may require IV MgSO4 Obtain Xray of L hip Thank you very much, Vin Lorenzo MD
[2018-12-24] MEDS ORDERED: ASPIRIN COATED 81 MG TABLET.EC PO SCH (10:00)
[2018-12-24] MEDS ORDERED: CARVEDILOL 12.5 MG TABLET (FP) PO SCH (10:07)
[2018-12-24 10:15] LABS: ANISOCYTOSIS 1+; MACROCYTOSIS 1+; OVALOCYTE 1+; PLATELET ESTIMATE NORMAL
--- NOTE | 2018-12-24 10:48 | PN ---
Teaching Attending Note Name of Resident: Javier Villela ATTENDING PHYSICIAN STATEMENT I saw and evaluated the patient. I reviewed the resident's note and discussed the case with the resident. I agree with the resident's findings and plan as documented. SUBJECTIVE: Mr Scott complains of pain. Denies cp, sob, n/v. OBJECTIVE: Last Vital Signs Temp Pulse Resp BP Pulse Ox 37.1 C 83 19 133/63 95 12/24/18 10:15 12/24/18 10:15 12/24/18 10:15 12/24/18 10:15 12/24/18 09:00 Gen: nad Pulm: ctab w/o w/r/r CV: rrr w/o m/r/g Abd: +bs, s/nt/nd Ext: no c/c/e CBC, BMP 12/24/18 05:15 12/24/18 05:15 ASSESSMENT AND PLAN: -replace magnesium today -discharge on home magnesium -PT to see -will not increase current pain regimen as concern about taking too much at home -plan for discharge after seen by PT Problem List - Problems (1) Hypoglycemia Code(s): E16.2 - HYPOGLYCEMIA, UNSPECIFIED (2) CAD (coronary artery disease) Code(s): I25.10 - ATHSCL HEART DISEASE OF [place] CORONARY ARTERY W/O ANG PCTRS Qualifiers: [place] vs. transplanted heart: [place] heart Associated angina: without angina (3) CKD (chronic kidney disease) Code(s): N18.9 - CHRONIC KIDNEY DISEASE, UNSPECIFIED Qualifiers: Chronic kidney disease stage: stage 2 (mild) Qualified Code(s): N18.2 - Chronic kidney disease, stage 2 (mild) (4) COPD (chronic obstructive pulmonary disease) Code(s): J44.9 - CHRONIC OBSTRUCTIVE PULMONARY DISEASE, UNSPECIFIED (5) Cardiomyopathy Code(s): I42.9 - CARDIOMYOPATHY, UNSPECIFIED (6) Chronic pain Code(s): G89.29 - OTHER CHRONIC PAIN (7) Congestive heart failure (CHF) Code(s): I50.9 - HEART FAILURE, UNSPECIFIED (8) Diabetes mellitus Code(s): E11.9 - TYPE 2 DIABETES MELLITUS WITHOUT COMPLICATIONS Qualifiers: Diabetes mellitus type: type 2 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 Diabetes mellitus complication status: with circulatory complication Diabetes mellitus complication detail: with peripheral angiopathy with gangrene Qualified Code(s): E11.52 - Type 2 diabetes mellitus with diabetic peripheral angiopathy with gangrene (9) Fall Code(s): W19.XXXA - UNSPECIFIED FALL, INITIAL ENCOUNTER Qualifiers: Encounter type: initial encounter Qualified Code(s): W19.XXXA - Unspecified fall, initial encounter (10) Hyperlipidemia Code(s): E78.5 - HYPERLIPIDEMIA, UNSPECIFIED (11) Hypertension Code(s): I10 - ESSENTIAL (PRIMARY) HYPERTENSION Qualifiers: Hypertension type: essential hypertension Qualified Code(s): I10 - Essential (primary) hypertension
--- NOTE | 2018-12-24 11:43 | PN ---
Physical Exam: SUBJECTIVE: Patient seen and examined OBJECTIVE: Vital Signs Period Temp Pulse Resp BP Sys/Chandra Pulse Ox Last 24 Hr 97.9 F-99.2 F 80-86 15-19 133-156/45-94 95-97 GENERAL: The patient is awake, alert, and fully oriented, in no acute distress. HEAD: Normal with no signs of trauma. EYES: PERRL, extraocular movements intact, sclera anicteric, conjunctiva clear. No ptosis. ENT: Ears normal, nares patent, oropharynx clear without exudates, moist mucous membranes. NECK: Trachea midline, full range of motion, supple. LUNGS: Breath sounds equal, clear to auscultation bilaterally, no wheezes, no crackles, no accessory muscle use. HEART: Regular rate and rhythm, S1, S2 without murmur, rub or gallop. ABDOMEN: Soft, nontender, nondistended, normoactive bowel sounds, no guarding, no rebound, no hepatosplenomegaly, no masses. EXTREMITIES: 2+ pulses, warm, well-perfused, no edema. NEUROLOGICAL: Cranial nerves II through XII grossly intact. Normal speech, gait not observed. PSYCH: Normal mood, normal affect. SKIN: Warm, dry, normal turgor, no rashes or lesions noted Laboratory Results - last 24 hr 12/22/18 12/23/18 12/23/18 22:30 05:30 12:22 WBC RBC Hgb Hct MCV MCH MCHC RDW Plt Count MPV Absolute Neuts (auto) Neutrophils % Neutrophils % (Manual) 80.0 Band Neutrophils % 0.0 Lymphocytes % Lymphocytes % (Manual) 10.0 Monocytes % Monocytes % (Manual) 8 Eosinophils % Eosinophils % (Manual) 1.0 D Basophils % Basophils % (Manual) 0.0 Myelocytes % (Man) 1 Promyelocytes % (Man) 0 Blast Cells % (Manual) 0 Nucleated RBC % Metamyelocytes 0 D Hypochromia 0 Platelet Estimate Normal Polychromasia 1+ Poikilocytosis 1+ Anisocytosis 1+ Microcytosis 0 Macrocytosis 1+ Target Cells 1+ Ovalocytes 1+ Schistocytes 1+ Sodium 143 Potassium 3.5 Chloride 108 H Carbon Dioxide 23 Anion Gap 12 BUN 25 H Creatinine 1.6 H Creat Clearance w eGFR 42.95 POC Glucometer 161 Random Glucose 143 H Calcium 7.5 L Phosphorus Magnesium Total Bilirubin 0.2 AST 18 ALT 11 L Alkaline Phosphatase 113 Creatine Kinase 60 Troponin I 0.02 Total Protein 5.6 L Albumin 2.6 L 12/23/18 12/23/18 12/23/18 13:00 14:46 16:10 WBC RBC Hgb Hct MCV MCH MCHC RDW Plt Count MPV Absolute Neuts (auto) Neutrophils % Neutrophils % (Manual) Band Neutrophils % Lymphocytes % Lymphocytes % (Manual) Monocytes % Monocytes % (Manual) Eosinophils % Eosinophils % (Manual) Basophils % Basophils % (Manual) Myelocytes % (Man) Promyelocytes % (Man) Blast Cells % (Manual) Nucleated RBC % Metamyelocytes Hypochromia Platelet Estimate Polychromasia Poikilocytosis Anisocytosis Microcytosis Macrocytosis Target Cells Ovalocytes Schistocytes Sodium Potassium Chloride Carbon Dioxide Anion Gap BUN Creatinine Creat Clearance w eGFR POC Glucometer 189 148 172 Random Glucose Calcium Phosphorus Magnesium Total Bilirubin AST ALT Alkaline Phosphatase Creatine Kinase Troponin I Total Protein Albumin 12/23/18 12/23/18 12/23/18 17:59 21:09 23:00 WBC RBC Hgb Hct MCV MCH MCHC RDW Plt Count MPV Absolute Neuts (auto) Neutrophils % Neutrophils % (Manual) Band Neutrophils % Lymphocytes % Lymphocytes % (Manual) Monocytes % Monocytes % (Manual) Eosinophils % Eosinophils % (Manual) Basophils % Basophils % (Manual) Myelocytes % (Man) Promyelocytes % (Man) Blast Cells % (Manual) Nucleated RBC % Metamyelocytes Hypochromia Platelet Estimate Polychromasia Poikilocytosis Anisocytosis Microcytosis Macrocytosis Target Cells Ovalocytes Schistocytes Sodium Potassium Chloride Carbon Dioxide Anion Gap BUN Creatinine Creat Clearance w eGFR POC Glucometer 146 138 148 Random Glucose Calcium Phosphorus Magnesium Total Bilirubin AST ALT Alkaline Phosphatase Creatine Kinase Troponin I Total Protein Albumin 12/24/18 12/24/18 12/24/18 02:43 05:13 05:15 WBC 10.4 H RBC 3.09 L Hgb 10.4 L Hct 31.5 L MCV 101.7 H MCH 33.6 MCHC 33.0 RDW 18.5 H Plt Count 279 MPV 7.5 Absolute Neuts (auto) 8.4 H Neutrophils % 80.5 Neutrophils % (Manual) Band Neutrophils % Lymphocytes % 8.2 Lymphocytes % (Manual) Monocytes % 7.1 Monocytes % (Manual) Eosinophils % 2.7 D Eosinophils % (Manual) Basophils % 1.5 Basophils % (Manual) Myelocytes % (Man) Promyelocytes % (Man) Blast Cells % (Manual) Nucleated RBC % 0 Metamyelocytes Hypochromia Platelet Estimate Polychromasia Poikilocytosis Anisocytosis Microcytosis Macrocytosis Target Cells Ovalocytes Schistocytes Sodium Potassium Chloride Carbon Dioxide Anion Gap BUN Creatinine Creat Clearance w eGFR POC Glucometer 125 103 Random Glucose Calcium Phosphorus Magnesium Total Bilirubin AST ALT Alkaline Phosphatase Creatine Kinase Troponin I Total Protein Albumin 12/24/18 12/24/18 05:15 10:39 WBC RBC Hgb Hct MCV MCH MCHC RDW Plt Count MPV Absolute Neuts (auto) Neutrophils % Neutrophils % (Manual) Band Neutrophils % Lymphocytes % Lymphocytes % (Manual) Monocytes % Monocytes % (Manual) Eosinophils % Eosinophils % (Manual) Basophils % Basophils % (Manual) Myelocytes % (Man) Promyelocytes % (Man) Blast Cells % (Manual) Nucleated RBC % Metamyelocytes Hypochromia Platelet Estimate Polychromasia Poikilocytosis Anisocytosis Microcytosis Macrocytosis Target Cells Ovalocytes Schistocytes Sodium 144 Potassium 3.5 Chloride 108 H Carbon Dioxide 26 Anion Gap 11 BUN 17 Creatinine 1.0 Creat Clearance w eGFR > 60 POC Glucometer 144 Random Glucose 100 Calcium 7.4 L Phosphorus 2.0 L Magnesium 1.0 L Total Bilirubin AST ALT Alkaline Phosphatase Creatine Kinase Troponin I Total Protein Albumin Active Medications Generic Name Dose Route Start Last Admin Trade Name Freq PRN Reason Stop Dose Admin Acetaminophen 650 mg 12/23/18 06:40 12/24/18 08:18 Tylenol - PO 650 mg Q6H PRN Administration PAIN Albuterol Sulfate 1 amp 12/23/18 06:49 Ventolin 0.083% Nebulizer Soln - NEB Q6H PRN SHORT OF BREATH/WHEEZING Amlodipine Besylate 5 mg 12/23/18 10:00 12/24/18 09:45 Norvasc - PO 5 mg DAILY RADHA Administration Aspirin 81 mg 12/24/18 10:00 12/24/18 09:45 Ecotrin - PO 81 mg DAILY RADHA Administration Budesonide/Formoterol Fumarate 2 puff 12/23/18 10:00 12/24/18 09:53 Symbicort 160/4.5mcg - IH 2 puff BID RADHA Administration Carvedilol 12.5 mg 12/24/18 10:07 Coreg - PO BID RADHA Chlorhexidine Gluconate 1 applic 12/23/18 22:00 12/23/18 21:36 Hibiclens For Decolonization - TP 1 applic HS RADHA Administration Clopidogrel Bisulfate 75 mg 12/23/18 10:00 12/24/18 09:45 Plavix - PO 75 mg DAILY RADHA Administration Docusate Sodium 100 mg 12/23/18 09:15 Colace - PO BID PRN CONSTIPATION Hydralazine HCl 10 mg 12/23/18 10:00 12/24/18 09:48 Apresoline - PO 10 mg BID RADHA Administration Isosorbide Mononitrate 30 mg 12/23/18 10:00 12/24/18 09:45 Imdur - PO 30 mg DAILY RADHA Administration Mupirocin 1 applic 12/23/18 10:00 12/24/18 09:49 Bactroban Ointment (For Decolonization) - NS 12/28/18 09:59 1 applic BID RADHA Administration Oxycodone HCl 10 mg 12/23/18 09:15 12/24/18 08:15 Roxicodone - PO 10 mg Q6H RADHA Administration Potassium Chloride 40 meq 12/24/18 12:00 K-Dur - PO 12/24/18 12:01 ONCE ONE Pregabalin 50 mg 12/23/18 10:00 12/24/18 09:44 Lyrica - PO 50 mg BID RADHA Administration Temazepam 30 mg 12/23/18 22:00 12/23/18 22:55 Restoril - PO 30 mg HS RADHA Administration Thiamine HCl 250 mg 12/24/18 14:00 Vitamin B1 Injection - IVPB 12/27/18 13:59 TID RADHA Zolpidem Tartrate 10 mg 12/23/18 22:37 12/23/18 22:55 Ambien - PO 10 mg HS PRN Administration INSOMNIA ASSESSMENT/PLAN:
[2018-12-24 11:44] LABS: N-TERMINAL BNP 5098.3 pg/ml (5-125)
[2018-12-24] MEDS ORDERED: POTASSIUM CHLORIDE TABS 20 MEQ TABLET.ER (FP) PO ONE (12:00)
--- NOTE | 2018-12-24 12:18 | PN ---
Teaching Attending Note Name of Resident: Earl Pantoja ATTENDING PHYSICIAN STATEMENT I saw and evaluated the patient. I reviewed the resident's note and discussed the case with the resident. I agree with the resident's findings and plan as documented. SUBJECTIVE: Patient seen and examined in the ICU. Awake and alert. Remains on 10D drip. No further significant episodes of hypoglycemia requiring D50. No CP or SOB. Does report somewhat chronic left hip and LE discomfort. Intake & Output 12/21/18 12/22/18 12/23/18 12/24/18 23:59 23:59 23:59 23:59 Intake Total 1252 Output Total 1000 Balance 1252 -1000 Weight 250 lb 157 lb 196 lb 6 oz Last Vital Signs Temp Pulse Resp BP Pulse Ox 98.7 F 83 19 133/63 95 12/24/18 10:15 12/24/18 10:15 12/24/18 10:15 12/24/18 10:15 12/24/18 09:00 Active Medications Acetaminophen (Tylenol -) 650 mg PO Q6H PRN PRN Reason: PAIN Last Admin: 12/24/18 08:18 Dose: 650 mg Albuterol Sulfate (Ventolin 0.083% Nebulizer Soln -) 1 amp NEB Q6H PRN PRN Reason: SHORT OF BREATH/WHEEZING Amlodipine Besylate (Norvasc -) 5 mg PO DAILY [facility] Last Admin: 12/24/18 09:45 Dose: 5 mg Aspirin (Ecotrin -) 81 mg PO DAILY [facility] Last Admin: 12/24/18 09:45 Dose: 81 mg Budesonide/Formoterol Fumarate (Symbicort 160/4.5mcg -) 2 puff IH BID [facility] Last Admin: 12/24/18 09:53 Dose: 2 puff Carvedilol (Coreg -) 12.5 mg PO BID [facility] Chlorhexidine Gluconate (Hibiclens For Decolonization -) 1 applic TP HS [facility] Last Admin: 12/23/18 21:36 Dose: 1 applic Clopidogrel Bisulfate (Plavix -) 75 mg PO DAILY [facility] Last Admin: 12/24/18 09:45 Dose: 75 mg Docusate Sodium (Colace -) 100 mg PO BID PRN PRN Reason: CONSTIPATION Hydralazine HCl (Apresoline -) 10 mg PO BID [facility] Last Admin: 02/25/19 09:48 Dose: 10 mg Isosorbide Mononitrate (Imdur -) 30 mg PO DAILY [facility] Last Admin: 12/24/18 09:45 Dose: 30 mg Mupirocin (Bactroban Ointment (For Decolonization) -) 1 applic NS BID [facility] Stop: 12/28/18 09:59 Last Admin: 12/24/18 09:49 Dose: 1 applic Oxycodone HCl (Roxicodone -) 10 mg PO Q6H [facility] Last Admin: 12/24/18 08:15 Dose: 10 mg Pregabalin (Lyrica -) 50 mg PO BID [facility] Last Admin: 12/24/18 09:44 Dose: 50 mg Temazepam (Restoril -) 30 mg PO HS [facility] Last Admin: 12/23/18 22:55 Dose: 30 mg Thiamine HCl (Vitamin B1 Injection -) 250 mg IVPB TID [facility] Stop: 12/27/18 13:59 Zolpidem Tartrate (Ambien -) 10 mg PO HS PRN PRN Reason: INSOMNIA Last Admin: 12/23/18 22:55 Dose: 10 mg GENERAL: The patient is awake, alert, and fully oriented, in no acute distress. HEAD: Normal with no signs of trauma. NECK: Trachea midline, full range of motion, supple. LUNGS: Breath sounds equal, clear to auscultation bilaterally, no wheezes, HEART: Regular rate and rhythm, S1, S2 ABDOMEN: Soft, nontender, nondistended, normoactive bowel sounds, no guarding, no rebound, no hepatosplenomegaly, no masses. EXTREMITIES: warm, well-perfused, mild edema at b/l ankles NEUROLOGICAL: Normal speech, PSYCH: Normal mood, normal affect. SKIN: Warm, dry, Laboratory Results - last 24 hr 12/23/18 12/23/18 12/23/18 02:30 05:30 05:30 WBC RBC Hgb Hct MCV MCH MCHC RDW Plt Count MPV Absolute Neuts (auto) Neutrophils % Neutrophils % (Manual) 80.0 Band Neutrophils % 0.0 Lymphocytes % Lymphocytes % (Manual) 10.0 Monocytes % Monocytes % (Manual) 8 Eosinophils % Eosinophils % (Manual) 1.0 D Basophils % Basophils % (Manual) 0.0 Myelocytes % (Man) 1 Promyelocytes % (Man) 0 Blast Cells % (Manual) 0 Nucleated RBC % Metamyelocytes 0 D Hypochromia 0 Platelet Estimate Normal Polychromasia 1+ Poikilocytosis 1+ Anisocytosis 1+ Microcytosis 0 Macrocytosis 1+ Target Cells 1+ Ovalocytes 1+ Schistocytes 1+ Sodium Potassium Chloride Carbon Dioxide Anion Gap BUN Creatinine Creat Clearance w eGFR POC Glucometer Random Glucose Hemoglobin A1c % 6.5 H Calcium Phosphorus Magnesium RPR Titer Nonreactive 12/23/18 12/23/18 12/23/18 08:31 10:00 11:14 WBC RBC Hgb Hct MCV MCH MCHC RDW Plt Count MPV Absolute Neuts (auto) Neutrophils % Neutrophils % (Manual) Band Neutrophils % Lymphocytes % Lymphocytes % (Manual) Monocytes % Monocytes % (Manual) Eosinophils % Eosinophils % (Manual) Basophils % Basophils % (Manual) Myelocytes % (Man) Promyelocytes % (Man) Blast Cells % (Manual) Nucleated RBC % Metamyelocytes Hypochromia Platelet Estimate Polychromasia Poikilocytosis Anisocytosis Microcytosis Macrocytosis Target Cells Ovalocytes Schistocytes Sodium Potassium Chloride Carbon Dioxide Anion Gap BUN Creatinine Creat Clearance w eGFR POC Glucometer 113 120 120 Random Glucose Hemoglobin A1c % Calcium Phosphorus Magnesium RPR Titer 12/23/18 12/23/18 12/23/18 12:22 13:00 14:46 WBC RBC Hgb Hct MCV MCH MCHC RDW Plt Count MPV Absolute Neuts (auto) Neutrophils % Neutrophils % (Manual) Band Neutrophils % Lymphocytes % Lymphocytes % (Manual) Monocytes % Monocytes % (Manual) Eosinophils % Eosinophils % (Manual) Basophils % Basophils % (Manual) Myelocytes % (Man) Promyelocytes % (Man) Blast Cells % (Manual) Nucleated RBC % Metamyelocytes Hypochromia Platelet Estimate Polychromasia Poikilocytosis Anisocytosis Microcytosis Macrocytosis Target Cells Ovalocytes Schistocytes Sodium Potassium Chloride Carbon Dioxide Anion Gap BUN Creatinine Creat Clearance w eGFR POC Glucometer 161 189 148 Random Glucose Hemoglobin A1c % Calcium Phosphorus Magnesium RPR Titer 12/23/18 12/23/18 12/23/18 16:10 17:59 21:09 WBC RBC Hgb Hct MCV MCH MCHC RDW Plt Count MPV Absolute Neuts (auto) Neutrophils % Neutrophils % (Manual) Band Neutrophils % Lymphocytes % Lymphocytes % (Manual) Monocytes % Monocytes % (Manual) Eosinophils % Eosinophils % (Manual) Basophils % Basophils % (Manual) Myelocytes % (Man) Promyelocytes % (Man) Blast Cells % (Manual) Nucleated RBC % Metamyelocytes Hypochromia Platelet Estimate Polychromasia Poikilocytosis Anisocytosis Microcytosis Macrocytosis Target Cells Ovalocytes Schistocytes Sodium Potassium Chloride Carbon Dioxide Anion Gap BUN Creatinine Creat Clearance w eGFR POC Glucometer 172 146 138 Random Glucose Hemoglobin A1c % Calcium Phosphorus Magnesium RPR Titer 12/23/18 12/24/18 12/24/18 23:00 02:43 05:13 WBC RBC Hgb Hct MCV MCH MCHC RDW Plt Count MPV Absolute Neuts (auto) Neutrophils % Neutrophils % (Manual) Band Neutrophils % Lymphocytes % Lymphocytes % (Manual) Monocytes % Monocytes % (Manual) Eosinophils % Eosinophils % (Manual) Basophils % Basophils % (Manual) Myelocytes % (Man) Promyelocytes % (Man) Blast Cells % (Manual) Nucleated RBC % Metamyelocytes Hypochromia Platelet Estimate Polychromasia Poikilocytosis Anisocytosis Microcytosis Macrocytosis Target Cells Ovalocytes Schistocytes Sodium Potassium Chloride Carbon Dioxide Anion Gap BUN Creatinine Creat Clearance w eGFR POC Glucometer 148 125 103 Random Glucose Hemoglobin A1c % Calcium Phosphorus Magnesium RPR Titer 12/24/18 12/24/18 05:15 05:15 WBC 10.4 H RBC 3.09 L Hgb 10.4 L Hct 31.5 L MCV 101.7 H MCH 33.6 MCHC 33.0 RDW 18.5 H Plt Count 279 MPV 7.5 Absolute Neuts (auto) 8.4 H Neutrophils % 80.5 Neutrophils % (Manual) Band Neutrophils % Lymphocytes % 8.2 Lymphocytes % (Manual) Monocytes % 7.1 Monocytes % (Manual) Eosinophils % 2.7 D Eosinophils % (Manual) Basophils % 1.5 Basophils % (Manual) Myelocytes % (Man) Promyelocytes % (Man) Blast Cells % (Manual) Nucleated RBC % 0 Metamyelocytes Hypochromia Platelet Estimate Polychromasia Poikilocytosis Anisocytosis Microcytosis Macrocytosis Target Cells Ovalocytes Schistocytes Sodium 144 Potassium 3.5 Chloride 108 H Carbon Dioxide 26 Anion Gap 11 BUN 17 Creatinine 1.0 Creat Clearance w eGFR > 60 POC Glucometer Random Glucose 100 Hemoglobin A1c % Calcium 7.4 L Phosphorus 2.0 L Magnesium 1.0 L RPR Titer ASSESSMENT/PLAN: Hypoglycemia: suspected due to medications CAD COPD HTN CKD Wean D10 drip PO as tolerated Monitor BGM ASA Plavix Home BP meds OOB to chair VTE prophylaxis Floor Dr Perez
[2018-12-24] MEDS ORDERED: THIAMINE HCL 200 MG/2 ML VIAL IVPB SCH (14:00)
--- NOTE | 2018-12-24 16:38 | DS ---
Physical Exam: SUBJECTIVE: Patient seen and examined OBJECTIVE: Vital Signs Period Temp Pulse Resp BP Sys/Chandra Pulse Ox Last 24 Hr 98.2 F-99.4 F 71-86 16-19 122-156/45-84 95-97 PHYSICAL EXAM GENERAL: The patient is awake, alert, and fully oriented, in no acute distress. HEAD: Normal with no signs of trauma. NECK: Trachea midline, full range of motion, supple. LUNGS: Breath sounds equal, clear to auscultation bilaterally, no wheezes, HEART: Regular rate and rhythm, S1, S2 ABDOMEN: Soft, nontender, nondistended, normoactive bowel sounds, no guarding, no rebound, no hepatosplenomegaly, no masses. EXTREMITIES: warm, well-perfused, mild edema at b/l ankles NEUROLOGICAL: Normal speech, PSYCH: Normal mood, normal affect. SKIN: Warm, dry, LABS Laboratory Results - last 24 hr 12/22/18 12/23/18 12/23/18 22:30 17:59 21:09 WBC RBC Hgb Hct MCV MCH MCHC RDW Plt Count MPV Absolute Neuts (auto) Neutrophils % Neutrophils % (Manual) Band Neutrophils % Lymphocytes % Lymphocytes % (Manual) Monocytes % Monocytes % (Manual) Eosinophils % Eosinophils % (Manual) Basophils % Basophils % (Manual) Myelocytes % (Man) Promyelocytes % (Man) Blast Cells % (Manual) Nucleated RBC % Metamyelocytes Hypochromia Platelet Estimate Polychromasia Poikilocytosis Anisocytosis Microcytosis Macrocytosis Ovalocytes Sodium 143 Potassium 3.5 Chloride 108 H Carbon Dioxide 23 Anion Gap 12 BUN 25 H Creatinine 1.6 H Creat Clearance w eGFR 42.95 POC Glucometer 146 138 Random Glucose 143 H Calcium 7.5 L Phosphorus Magnesium Total Bilirubin 0.2 AST 18 ALT 11 L Alkaline Phosphatase 113 Creatine Kinase 60 Troponin I 0.02 B-Natriuretic Peptide 5098.3 H Total Protein 5.6 L Albumin 2.6 L 12/23/18 12/24/18 12/24/18 23:00 02:43 05:13 WBC RBC Hgb Hct MCV MCH MCHC RDW Plt Count MPV Absolute Neuts (auto) Neutrophils % Neutrophils % (Manual) Band Neutrophils % Lymphocytes % Lymphocytes % (Manual) Monocytes % Monocytes % (Manual) Eosinophils % Eosinophils % (Manual) Basophils % Basophils % (Manual) Myelocytes % (Man) Promyelocytes % (Man) Blast Cells % (Manual) Nucleated RBC % Metamyelocytes Hypochromia Platelet Estimate Polychromasia Poikilocytosis Anisocytosis Microcytosis Macrocytosis Ovalocytes Sodium Potassium Chloride Carbon Dioxide Anion Gap BUN Creatinine Creat Clearance w eGFR POC Glucometer 148 125 103 Random Glucose Calcium Phosphorus Magnesium Total Bilirubin AST ALT Alkaline Phosphatase Creatine Kinase Troponin I B-Natriuretic Peptide Total Protein Albumin 12/24/18 12/24/18 12/24/18 05:15 05:15 10:39 WBC 10.4 H RBC 3.09 L Hgb 10.4 L Hct 31.5 L MCV 101.7 H MCH 33.6 MCHC 33.0 RDW 18.5 H Plt Count 279 MPV 7.5 Absolute Neuts (auto) 8.4 H Neutrophils % 80.5 Neutrophils % (Manual) 82.8 Band Neutrophils % 0.0 Lymphocytes % 8.2 Lymphocytes % (Manual) 6.1 L D Monocytes % 7.1 Monocytes % (Manual) 8 Eosinophils % 2.7 D Eosinophils % (Manual) 0.0 D Basophils % 1.5 Basophils % (Manual) 2.0 D Myelocytes % (Man) 0 D Promyelocytes % (Man) 0 Blast Cells % (Manual) 0 Nucleated RBC % 0 Metamyelocytes 0 Hypochromia 0 Platelet Estimate Normal Polychromasia 0 Poikilocytosis 1+ Anisocytosis 1+ Microcytosis 0 Macrocytosis 1+ Ovalocytes 1+ Sodium 144 Potassium 3.5 Chloride 108 H Carbon Dioxide 26 Anion Gap 11 BUN 17 Creatinine 1.0 Creat Clearance w eGFR > 60 POC Glucometer 144 Random Glucose 100 Calcium 7.4 L Phosphorus 2.0 L Magnesium 1.0 L Total Bilirubin AST ALT Alkaline Phosphatase Creatine Kinase Troponin I B-Natriuretic Peptide Total Protein Albumin 12/24/18 14:44 WBC RBC Hgb Hct MCV MCH MCHC RDW Plt Count MPV Absolute Neuts (auto) Neutrophils % Neutrophils % (Manual) Band Neutrophils % Lymphocytes % Lymphocytes % (Manual) Monocytes % Monocytes % (Manual) Eosinophils % Eosinophils % (Manual) Basophils % Basophils % (Manual) Myelocytes % (Man) Promyelocytes % (Man) Blast Cells % (Manual) Nucleated RBC % Metamyelocytes Hypochromia Platelet Estimate Polychromasia Poikilocytosis Anisocytosis Microcytosis Macrocytosis Ovalocytes Sodium Potassium Chloride Carbon Dioxide Anion Gap BUN Creatinine Creat Clearance w eGFR POC Glucometer 136 Random Glucose Calcium Phosphorus Magnesium Total Bilirubin AST ALT Alkaline Phosphatase Creatine Kinase Troponin I B-Natriuretic Peptide Total Protein Albumin HOSPITAL COURSE: 68 y/o M w/PMH of CVA, peripheral neuropathy, IDDM, CHF, HTN, [place] (s/p 5 stents), HLD, COPD, GERD, CKD, opioid dependance presents to the ER for AMS. Pt was very lethargic as per family at bedside. Over the last week he has been more sleepy than usual and today he was very somnolent and EMS was called. Found to have BGM of 25 and given D50 with improvement and subsequent BGM soon after was in the 40s. Pt repeatedly kept dropping his sugar in the ER despite multiple attempts to successfully raise his blood glucose. His mental status waxed and waned. Initially on presentation to the ER he was oriented x3 but extremely lethargic and arousable but pt progressed to becoming extremely somnolent and not arousable to pain. He was also given narcan which seemed to help his mentation but only briefly. His locks his prescribed opiates and only gives them to him as prescribed but suspects that at times he doesn't take his pain meds and stashes them and takes many at once. He may have also mixed up his long and short acting insulin today according to his family. During my interview pt only awake when his blanket was removed and was agitated and asked to be covered up because he was cold then fell back asleep. Pt was eventually put on D10 drip and family had just left room when he climbed out of the bed and fell hit his head leaving a laceration. He also removed his IV lines during this period. Repeat head CT was ordered. Pt's mental status was slightly improved afterwards but again became lethargic soon after. It was found taht pt has hypoglycemia because of accidental insulin overdose. In hospital pt got d50, d10 and slowly is blood sugar got stabalize. Now Pt is AO x 3. States he is back to his base line. Reports he walks with rolling walker in home and uses 7 L of oxygen in home. PT evaluated a pt and he walked 12 feet. Pt was advised to go to rehab but pt wants to go home. Pt discharged home in stable condition. Pt We have stopped your levemir i.e long acting insulin Please take insulin as prescribed Take short acting insulin according to sliding scale 100-150--0 unit 150-200--2 unir 200-250--4 unit 250-300--6 unit 300-350--8 unit 350-400--10 unit > 400 10 unit and call md Keep a cookie or sugar packet next to bed and in your pocket. If you again started feeling symptoms of low blood sugar please eat them. Make a log of your blood glucose level and present it to your primary care. You already have a rolling walker in home Use your home oxygen as you were using it before. Fall risk precautions. take all other medications as you ere taking it before. If you develop hypoglycemia or any new symptoms then call MD or go to hospital Date of Admission:12/23/18 Date of Discharge: 12/24/18 Minutes to complete discharge: 45 Discharge Summary Reason For Visit: HYPOGLYCEMIA Current Active Problems Hypoglycemia (Acute) Lethargy (Acute) - Instructions Diet, Activity, Other Instructions: We have stopped your levemir i.e long acting insulin Please take insulin as prescribed Take short acting insulin according to sliding scale 100-150--0 unit 150-200--2 unir 200-250--4 unit 250-300--6 unit 300-350--8 unit 350-400--10 unit > 400 10 unit and call md Keep a cookie or sugar packet next to bed and in your pocket. if you again started feeling symptoms of low blood sugar please eat them. Make a log of your blood glucose level and present it to your primary care. You already have a rolling walker in home Use your home oxygen as yoru were using it before. Fall risk precautions. If you develop hypoglycemia or any new symptoms then call MD or go to hospital Referrals: Vin Isbell MD [Primary Care Provider] - - Home Medications Comprehensive Discharge Medication List: Ambulatory Orders Aspirin [Ecotrin] 81 mg PO DAILY 04/29/15 Pregabalin [Lyrica] 50 mg PO BID 03/13/17 Isosorbide Mononitrate [Isosorbide Mononitrate ER] 30 mg PO DAILY 06/04/17 Acetaminophen [Tylenol .Regular Strength -] 650 mg PO Q4H PRN #90 tablet Albuterol 0.083% Nebulizer Clarisse [Ventolin 0.083% Nebulizer Soln -] 1 neb NEB QID PRN 10/04/17 Amlodipine Besylate [Norvasc -] 5 mg PO DAILY #30 tablet 10/09/17 Clopidogrel Bisulfate [Plavix -] 75 mg PO DAILY #30 tablet 10/09/17 Insulin Sliding Scale [Novolog Vial Sliding Scale -] See Protocol SQ TID Atorvastatin Ca [Lipitor] 40 mg PO HS 10/29/18 Budesonide/Formeterol Fumarate [SYMBICORT 160/4.5mcg -] 2 puff IH BID 10/29/18 Carvedilol [Coreg] 6.25 mg PO BID 10/29/18 Fluticasone/Salmeterol [Advair Hfa 115-21 Mcg Inhaler] 2 puff IH BID 10/29/18 Hydralazine HCl 10 mg PO BID 10/29/18 Lansoprazole [Prevacid] 30 mg PO DAILY 10/29/18 Magnesium Oxide [Magnesium] 400 mg PO DAILY 10/29/18 Sodium Bicarbonate - 650 mg PO DAILY 10/29/18 Temazepam 30 mg PO BID 10/29/18 Zolpidem Tartrate [Ambien] 10 mg PO HS 10/29/18 Furosemide [Lasix -] 80 mg PO DAILY tablet 10/31/18 Miscellaneous Medical Supply [Outpatient Order] 1 each ASDIR #1 misc This patient is new to me today: Yes Date on this admission: 12/24/18 Emergency Visit: Yes ED Registration Date: 12/23/18 Care time: The patient presented to the Emergency Department on the above date and was hospitalized for further evaluation of their emergent condition. Critical Care patient: No - Discharge Referral Referred to [facility] Med P.C.: No
[2018-12-24 17:27] VITALS: TEMP 97
[2018-12-24] MEDS ORDERED: oxyCODONE HCL 5 MG TABLET PO ONE (19:21)
[2018-12-24 20:05] VITALS: BP 128/62; PULSE 82
[2018-12-25 04:12] LABS: SERUM IRON SATURATION 12 % (15-55); TOTAL IRON BINDING CAPACITY 172 ug/dL (250-450); UIBC 152 ug/dL (111-343)
== END 2018-12-24 19:50 | disposition home or self-care (01) | DRG 917 ==
LOC: JER 21:04 → JERBED 12-23 01:59 → JICU 12-23 06:44
PROVIDERS: ADMIT Internal Medicine; ATTEND Internal Medicine
DX: T38.3X1A Poisoning by insulin and oral hypoglycemic [antidiabetic] drugs, accidental (unintentional), initial encounter (principal); G93.41 Metabolic encephalopathy; I50.22 Chronic systolic (congestive) heart failure; N17.9 Acute kidney failure, unspecified; I13.0 Hypertensive heart and chronic kidney disease with heart failure and stage 1 through stage 4 chronic kidney disease, or unspecified chronic kidney disease; I50.20 Unspecified systolic (congestive) heart failure; E11.649 Type 2 diabetes mellitus with hypoglycemia without coma; N18.2 Chronic kidney disease, stage 2 (mild); I25.10 Atherosclerotic heart disease of native coronary artery without angina pectoris; E83.42 Hypomagnesemia; E78.5 Hyperlipidemia, unspecified; K21.9 Gastro-esophageal reflux disease without esophagitis; I25.5 Ischemic cardiomyopathy; Z98.61 Coronary angioplasty status; J44.9 Chronic obstructive pulmonary disease, unspecified
CPT/HCPCS: 36415; 70450-TC; 71045-TC-FY; 72125-TC; 73502-TC-LT-FY; 73590-TC-LT-FY; 74176-TC; 80048; 80053; 80061; 80307; 81003; 81015; 82550; 82607; 82746; 82803; 82962; 83036; 83540; 83550; 83605; 83721; 83735; 83880; 84100; 84134; 84207; 84443; 84484; 84681; 85025; 85610; 85651; 85730; 86140; 86593; 87040; 87086; 87493; 93005; 93010; 94761; 97116-GP; 97161-GP; 99284-25

== ENCOUNTER 2019-01-03 12:56 | Inpatient (IN) | payer OTHER ==
--- NOTE | 2019-01-03 13:37 | PDOC ---
History of Present Illness - General Chief Complaint: Injury Stated Complaint: LT HIP PAIN - History of Present Illness Initial Comments: 01/03/19 13:37 68 yo male with PMH of CVA, peripheral neuropathy, IDDM, CHF, HTN, [place] (s/p 5 stents), HLD, COPD, GERD, CKD presents after a fall last night. He states he was adjusting his blankets and fell backward and hit his head. He is also complaining of Left hip, femur, and ni pain. Recent admission noted. Past History - Past Medical History Allergies/Adverse Reactions: Allergies Allergy/AdvReac Type Severity Reaction Status Date / Time lansoprazole [From Prevacid] Allergy Intermediate Verified 05/24/18 07:07 Home Medications: Ambulatory Orders Aspirin [Ecotrin] 81 mg PO DAILY 04/29/15 Pregabalin [Lyrica] 50 mg PO BID 03/13/17 Isosorbide Mononitrate [Isosorbide Mononitrate ER] 30 mg PO DAILY 06/04/17 Acetaminophen [Tylenol .Regular Strength -] 650 mg PO Q4H PRN #90 tablet Albuterol 0.083% Nebulizer Clarisse [Ventolin 0.083% Nebulizer Soln -] 1 neb NEB QID PRN 10/04/17 Amlodipine Besylate [Norvasc -] 5 mg PO DAILY #30 tablet 10/09/17 Clopidogrel Bisulfate [Plavix -] 75 mg PO DAILY #30 tablet 10/09/17 Insulin Sliding Scale [Novolog Vial Sliding Scale -] See Protocol SQ TID Atorvastatin Ca [Lipitor] 40 mg PO HS 10/29/18 Budesonide/Formeterol Fumarate [SYMBICORT 160/4.5mcg -] 2 puff IH BID 10/29/18 Carvedilol [Coreg] 6.25 mg PO BID 10/29/18 Fluticasone/Salmeterol [Advair Hfa 115-21 Mcg Inhaler] 2 puff IH BID 10/29/18 Hydralazine HCl 10 mg PO BID 10/29/18 Sodium Bicarbonate - 650 mg PO DAILY 10/29/18 Temazepam 30 mg PO BID 10/29/18 Zolpidem Tartrate [Ambien] 10 mg PO HS 10/29/18 Furosemide [Lasix -] 80 mg PO DAILY tablet 10/31/18 Anemia: No Asthma: No Cancer: No Cardiac Disorders: Yes (9 stents, ND, CAD) CVA: Yes (stroke x 2) COPD: Yes CHF: No Dementia: No Diabetes: Yes GI Disorders: Yes (colitis NOW CONSTIPATION) Disorders: Yes HTN: Yes Hypercholesterolemia: Yes Kidney Stones: Yes Liver Disease: No Seizures: No Thyroid Disease: No - Surgical History Abdominal Surgery: No Appendectomy: No Cardiac Surgery: Yes (stents x 9) Cholecystectomy: No Lung Surgery: No Neurologic Surgery: No Orthopedic Surgery: No - Immunization History Immunization Up to Date: No - Suicide/Smoking/Psychosocial Hx Smoking Status: No Smoking History: Unknown if ever smoked Have you smoked in the past 12 months: No Number of Cigarettes Smoked Daily: 30 If you are a former smoker, when did you quit?: 2017 Cigars Per Day: 0 'Breaking Loose' booklet given: 01/12/17 Hx Alcohol Use: No Drug/Substance Use Hx: No Substance Use Type: None Hx Substance Use Treatment: No *Physical Exam - Vital Signs Last Vital Signs Temp Pulse Resp BP Pulse Ox 98.3 F 58 L 16 111/60 10 L 01/03/19 13:10 01/03/19 13:10 01/03/19 13:10 01/03/19 13:10 01/03/19 13:10 - Physical Exam Comments: 01/03/19 13:37 GEN: A&O, no acute distress HEENT: moist mucus membrane NECK: supple HEART: Irregularly irregular LUNGS: CTA b/l ABDOMEN: Soft, nontender, normoactive bowel sounds EXTREMITIES: Left ni with small abrasion, Left hip decreased ROM, limited left leg exam 2/2 pain Moderate Sedation - Procedure Monitoring Vital Signs: Procedure Monitoring Vital Signs Temperature 98.3 F 01/03/19 13:10 Pulse Rate 58 L 01/03/19 13:10 Respiratory Rate 16 01/03/19 13:10 Blood Pressure 111/60 01/03/19 13:10 O2 Sat by Pulse Oximetry (%) 10 L 01/03/19 13:10 ED Treatment Course - LABORATORY CBC & Chemistry Diagram: 01/03/19 14:30 01/03/19 14:30 Medical Decision Making - Medical Decision Making 01/03/19 13:54 68 yo male with extensive PMH presents following a fall last night. Denies LOC Head CT, CT C-spine, CBC, CMP, UA, Coags pending 01/03/19 15:04 H/H noted, around pt's baseline CMP and imaging pending 01/03/19 15:[address]/Cervical CT without any gross bleed or fracture noted, official read pending 01/03/19 17:21 All imaging negative for acute fracture or bleeding. Pt currently unable to ambulate as he states he is having too much pain to sit up. Will give Tylenol for now and reasses. Also pt complaining of grogginess as he endorses taking sleeping pills this morning due to not sleeping last night, however with hx of COPD and requirement for home O2 will check ABG to reevaluate and verify current status is not due to CO2 narcosis vs acidosis 01/03/19 19:00 ABG drawn and pending. Will discuss case with hospitalist for observation as patient is unable to ambulate. 01/03/19 19:07 Signout given to night resident who will continue care from this point forward *DC/Admit/Observation/Transfer Diagnosis at time of Disposition: Weakness, Fall, Chronic respiratory failure, Inability to ambulate due to hip - Referrals Referrals: Vin Isbell MD [Primary Care Provider] - - Patient Instructions - Post Discharge Activity
--- NOTE | 2019-01-03 13:47 | PDOC ---
Attending Attestation - Resident Resident Name: Lázaro Holder - ED Attending Attestation I have performed the following: I have examined & evaluated the patient, The case was reviewed & discussed with the resident, I agree w/resident's findings & plan, Exceptions are as noted
[2019-01-03 14:51] LABS: BASO % 2.2 % (0-2.0); EOS % 4.9 % (0-4.5); HEMATOCRIT 30.8 % (35.4-49); HEMOGLOBIN 9.9 GM/dL (11.7-16.9); LYMPH % 15.4 % (8-40); MCH 33.6 pg (25.7-33.7); MCHC 32.2 g/dl (32.0-35.9); MEAN CELL VOLUME 104.4 fl (80-96); MEAN PLT VOLUME 7.6 fl (7.5-11.1); MONO % 11.2 % (3.8-10.2); NEUT % 66.3 % (42.8-82.8); PLATELET COUNT 251 K/MM3 (134-434); RBC 2.95 M/mm3 (4.00-5.60); WHITE BLOOD COUNT 6.9 K/mm3 (4.0-10.0)
[2019-01-03 15:16] LABS: ALBUMIN 2.3 g/dl (3.4-5.0); ALK PHOS 121 U/L (45-117); ANION GAP 9 MMOL/L (8-16); BILIRUBIN,TOTAL 0.2 mg/dL (0.2-1); BLOOD UREA NITROGEN 23 mg/dL (7-18); CALCIUM 7.7 mg/dL (8.5-10.1); CHLORIDE 111 mmol/L (98-107); CO2 25 mmol/L (21-32); CREATININE 1.3 mg/dL (0.55-1.3); GLUCOSE,RANDOM 122 mg/dL (74-106); POTASSIUM 3.5 mmol/L (3.5-5.1); SGOT/AST 9 U/L (15-37); SGPT/ALT 11 U/L (13-61); SODIUM 145 mmol/L (136-145)
[2019-01-03 15:46] LABS: ANISOCYTOSIS 1+; MACROCYTOSIS 1+; OVALOCYTE 1+; PLATELET ESTIMATE NORMAL
--- NOTE | 2019-01-03 17:27 | PDOC ---
Documentation entered by Genna Harding SCRIBE, acting as scribe for Ivana Saxena MD. Attending Attestation - Resident Resident Name: BreannaLázaro mckeon - ED Attending Attestation I have performed the following: I have examined & evaluated the patient, The case was reviewed & discussed with the resident, I agree w/resident's findings & plan, Exceptions are as noted - HPI HPI: 01/03/19 14:03 The patient is a 68 year old male with a significant past medical history of CVA , peripheral neuropathy, IDDM, CHF, HTN, [place] (s/p 5 stents), HLD, COPD, GERD, CKD presents with pain to his left hip, femur, and ni pain s/p falling backwards last night while moving his sheets??? He reports hitting his head. He was not able to sleep last night and this morning took a sleeping pill. This has made the patient very somnolent and a poor historian 01/03/19 17:45 - Physicial Exam PE: 01/03/19 16:54 On examination Pt is arousable to verbal simulation Dry mucous membranes RRR Lungs are clear No abdominal tenderness to palpation Hip pain on palpation, no obvious deformities of the extremities, no bruising - Medical Decision Making 01/03/19 15:13 Laboratory Tests 12/24/18 01/03/19 05:15 14:30 WBC 10.4 H 6.9 Hgb 10.4 L 9.9 L Hct 31.5 L 30.8 L Plt Count 279 251 01/03/19 16:58 Xray - no gross evidence of fracture 01/03/19 16:58 CT head - no intracranial hemorrhage CT cervical spine - degenerative changes, (+) pleural effusion 01/03/19 17:26 Laboratory Tests 01/03/19 14:30 Sodium 145 Potassium 3.5 Chloride 111 H Carbon Dioxide 25 BUN 23 H Creatinine 1.3 Random Glucose 122 H Will add trop Pt is quite somnolent Will do abg to eval for Hypercarbia Will plan to admit 01/03/19 17:47 Called by she confirms that he took sleeping pill, he is often somnolent like this during the day states he can not stand up, her and her son have to pull him to standing and he reports pain so therefore can not At home he doesn't walk Pt apparently had a fall in the hospital Since that time he has not been able to walk (according to the patient's ) Given this history, pt can not walk Despite nml x ray, will do CT pelvis Pt signed out to Dr Murrell pending CT Will plan to admit 01/04/19 08:17 Ivana Saxena MD: This documentation has been prepared by the Mehdi jones Amanda, SCRIBE, under my direction and personally reviewed by me in its entirety. I confirm that the documentation accurately reflects all work, treatment, procedures, and medical decision making performed by me.
[2019-01-03] MEDS ORDERED: ACETAMINOPHEN 325 MG TABLET (FP) PO ONE (17:55)
[2019-01-03 18:00] LABS: URINE APPEARANCE CLEAR; URINE BILIRUBIN NEGATIVE (<2.0 mg/dL); URINE COLOR YELLOW; URINE GLUCOSE (UA) NEGATIVE (NEGATIVE); URINE KETONE NEGATIVE (NEGATIVE); URINE LEUK ESTERASE TRACE (NEGATIVE); URINE NITRITE NEGATIVE (NEGATIVE); URINE PROTEIN 1+ (NEGATIVE); URINE UROBILINOGEN NEGATIVE mg/dL (0.2-1.0)
[2019-01-03] MEDS ORDERED: ACETAMINOPHEN 325 MG TABLET (FP) ONE (18:07)
[2019-01-03 18:13] LABS: URINE HYALINE CAST 5 /lpf; URINE MUCUS RARE
--- NOTE | 2019-01-03 19:00 | PDOC ---
*Physical Exam - Vital Signs Last Vital Signs Temp Pulse Resp BP Pulse Ox 98.9 F 79 18 137/78 96 01/03/19 17:42 01/03/19 17:42 01/03/19 17:42 01/03/19 17:42 01/03/19 17:42 ED Treatment Course - LABORATORY CBC & Chemistry Diagram: 01/03/19 14:30 01/03/19 14:30 - ADDITIONAL ORDERS Additional order review: Laboratory Results 01/03/19 01/03/19 17:42 14:30 Sodium 145 Potassium 3.5 Chloride 111 H Carbon Dioxide 25 Anion Gap 9 BUN 23 H Creatinine 1.3 Creat Clearance w eGFR 54.57 Random Glucose 122 H Calcium 7.7 L Total Bilirubin 0.2 AST 9 L ALT 11 L Alkaline Phosphatase 121 H Creatine Kinase 19 L Troponin I 0.02 Total Protein 5.0 L Albumin 2.3 L Urine Color Yellow Urine Appearance Clear Urine pH 6.0 Ur Specific [place] 1.016 Urine Protein 1+ H Urine Glucose (UA) Negative Urine Ketones Negative Urine Blood Negative Urine Nitrite Negative Urine Bilirubin Negative Urine Urobilinogen Negative Ur Leukocyte Esterase Trace Urine WBC (Auto) 17 Urine RBC (Auto) 1 Hyaline Casts 5 Urine Mucus Rare 01/03/19 14:30 RBC 2.95 L MCV 104.4 H MCHC 32.2 RDW 19.0 H MPV 7.6 Neutrophils % 66.3 Lymphocytes % 15.4 D Monocytes % 11.2 H Eosinophils % 4.9 H D Basophils % 2.2 H - Medications Given in the ED: ED Medications Discontinued Medications Generic Name Dose Route Start Last Admin Trade Name Freq PRN Reason Stop Dose Admin Acetaminophen 650 mg 01/03/19 17:55 01/03/19 18:36 Tylenol - PO 01/03/19 17:56 650 mg ONCE ONE Administration Medical Decision Making - Medical Decision Making 01/03/19 18:59 68 year old male recently admitted for hypoglycemia secondary to insulin misuse presented to ED today for fall. CBC WBC 6.9 K/mm3 (4.0-10.0) 01/03/19 14:30 RBC 2.95 M/mm3 (4.00-5.60) L 01/03/19 14:30 Hgb 9.9 GM/dL (11.7-16.9) L 01/03/19 14:30 Hct 30.8 % (35.4-49) L 01/03/19 14:30 MCV 104.4 fl (80-96) H 01/03/19 14:30 MCH 33.6 pg (25.7-33.7) 01/03/19 14:30 MCHC 32.2 g/dl (32.0-35.9) 01/03/19 14:30 RDW 19.0 % (11.9-15.9) H 01/03/19 14:30 Plt Count 251 K/MM3 (134-434) 01/03/19 14:30 MPV 7.6 fl (7.5-11.1) 01/03/19 14:30 Absolute Neuts (auto) 4.5 K/mm3 (1.5-8.0) 01/03/19 14:30 Neutrophils % 66.3 % (42.8-82.8) 01/03/19 14:30 Neutrophils % (Manual) 62.9 % (42.8-82.8) D 01/03/19 14:30 Band Neutrophils % 1.0 % 01/03/19 14:30 Lymphocytes % 15.4 % (8-40) D 01/03/19 14:30 Lymphocytes % (Manual) 16.5 % (8-40) D 01/03/19 14:30 Monocytes % 11.2 % (3.8-10.2) H 01/03/19 14:30 Monocytes % (Manual) 11 % (3.8-10.2) H 01/03/19 14:30 Eosinophils % 4.9 % (0-4.5) H D 01/03/19 14:30 Eosinophils % (Manual) 5.2 % (0-4.5) H D 01/03/19 14:30 Basophils % 2.2 % (0-2.0) H 01/03/19 14:30 Basophils % (Manual) 3.1 % (0-2.0) H 01/03/19 14:30 Myelocytes % (Man) 0 % (0-2) 01/03/19 14:30 Promyelocytes % (Man) 0 % (0-2) 01/03/19 14:30 Blast Cells % (Manual) 0 % (0-0) 01/03/19 14:30 Nucleated RBC % 0 % (0-0) 01/03/19 14:30 Metamyelocytes 0 % (0-2) 01/03/19 14:30 Hypochromia 0 01/03/19 14:30 Platelet Estimate Normal 01/03/19 14:30 Polychromasia 0 01/03/19 14:30 Poikilocytosis 0 01/03/19 14:30 Anisocytosis 1+ 01/03/19 14:30 Microcytosis 0 01/03/19 14:30 Macrocytosis 1+ 01/03/19 14:30 Ovalocytes 1+ 01/03/19 14:30 CMP Sodium 145 mmol/L (136-145) 01/03/19 14:30 Potassium 3.5 mmol/L (3.5-5.1) 01/03/19 14:30 Chloride 111 mmol/L (98-107) H 01/03/19 14:30 Carbon Dioxide 25 mmol/L (21-32) 01/03/19 14:30 Anion Gap 9 MMOL/L (8-16) 01/03/19 14:30 BUN 23 mg/dL (7-18) H 01/03/19 14:30 Creatinine 1.3 mg/dL (0.55-1.3) 01/03/19 14:30 Creat Clearance w eGFR 54.57 (>60) 01/03/19 14:30 Random Glucose 122 mg/dL (74-106) H 01/03/19 14:30 Calcium 7.7 mg/dL (8.5-10.1) L 01/03/19 14:30 Total Bilirubin 0.2 mg/dL (0.2-1) 01/03/19 14:30 AST 9 U/L (15-37) L 01/03/19 14:30 ALT 11 U/L (13-61) L 01/03/19 14:30 Alkaline Phosphatase 121 U/L (45-117) H 01/03/19 14:30 Creatine Kinase 19 U/L (26-308) L 01/03/19 14:30 Troponin I 0.02 ng/ml (0.00-0.05) 01/03/19 14:30 Total Protein 5.0 g/dl (6.4-8.2) L 01/03/19 14:30 Albumin 2.3 g/dl (3.4-5.0) L 01/03/19 14:30 Urine Test Results Urine Color Yellow 01/03/19 17:42 Urine Appearance Clear 01/03/19 17:42 Urine pH 6.0 (5.0-8.0) 01/03/19 17:42 Ur Specific [place] 1.016 (1.010-1.035) 01/03/19 17:42 Urine Protein 1+ (NEGATIVE) H 01/03/19 17:42 Urine Glucose (UA) Negative (NEGATIVE) 01/03/19 17:42 Urine Ketones Negative (NEGATIVE) 01/03/19 17:42 Urine Blood Negative (NEGATIVE) 01/03/19 17:42 Urine Nitrite Negative (NEGATIVE) 01/03/19 17:42 Urine Bilirubin Negative (<2.0 mg/dL) 01/03/19 17:42 Ur Leukocyte Esterase Trace (NEGATIVE) 01/03/19 17:42 Urine Mucus Rare 01/03/19 17:42 WBC>5 UTI? Past urine cultures in 2018 had no growth Urine culture in 2017 was positive for Legionella. Will let medicine team decide on treatment. CT head report: negative CT cervical spine report: negative for fracture/dislocation. left sided pleural effusion noted. CXR report: pulmonary venous congestion, cardiomegaly Left hip XR: no acute fracture/dislocation Left femur XR: no acute fracture/dislocation Pt still endorsed pain and inability to ambulate so a CT pelvis was performed. Pt reported he took a sleeping pill prior to arrival because he has not been sleeping well. Pt somnolent. - Pending ABG 01/03/19 19:25 CT pelvis: left femoral neck fracture. Ortho paged. Admitting team informed. 01/03/19 19:32 Pt informed of results. Pt reported no change in pain from presentation. Medications ordered: Oxy 5 01/03/19 20:02 I spoke with lora Chiu computer salesperson retail, stated pt will likely need surgery. Consult placed. 01/03/19 20:58 EKG performed at 2051: rate 67, regular rhythm, 1st degree AV block, left axis, rBBB. *DC/Admit/Observation/Transfer Diagnosis at time of Disposition: Weakness, Fall, Chronic respiratory failure, Inability to ambulate due to hip, Fracture of femoral neck, left - Discharge Dispostion Condition at time of disposition: Stable Decision to Admit order: Yes - Referrals - Patient Instructions - Post Discharge Activity
[2019-01-03] MEDS ORDERED: oxyCODONE HCL 5 MG TABLET PO ONE (19:34)
[2019-01-03 19:45] LABS: ARTERIAL BLD GAS O2 SATURATION 94.2 % (90-98.9); ARTERIAL BLOOD GAS BASE EXCESS -3.5 meq/l (-2-2); ARTERIAL BLOOD GAS PCO2 42.7 mmHg (35-45); ARTERIAL BLOOD GAS PO2 74.8 mmHg (70-100); ARTERIAL BLOOD GAS pH 7.33 (7.35-7.45)
[2019-01-03 19:46] LABS: ALLENS TEST POSITIVE
--- NOTE | 2019-01-03 19:53 | PN ---
Teaching Attending Note Name of Resident: Ynes Conway ATTENDING PHYSICIAN STATEMENT I saw and evaluated the patient. I reviewed the resident's note and discussed the case with the resident. I agree with the resident's findings and plan as documented. SUBJECTIVE: Seen and examined; please refer to resident note for further historical information. Briefly, this is a patient with a PMH of DM, CKD, CVA (2015), CAD (s/p STEMI, multiple PCI), Ischemic CM, COPD former smoker), HTN, HLD, repeated lethargy, insomnia, hx opiate use. He presents today with a slip and fall injury at home that resulted in impacted fracture of the L-femoral neck with displacement. He is afebrile and hemodynamically stable and has no symptoms other than pain though in the ER he is noted to have been somnolent which was attributed to him recently taking a sleeping pill due to underlying insomnia. Has been compliant with his medications. Orthopedic sgy was made aware by ER. He has a very complex cardiovascular history; he was seen on 12/23/18 by CV last. 2004 s/p PCI to 100% occluded RPDA with patent prior RCA stents; 2011 with anterior STEMI with 2x LIBBY (EF 37% at that time with IW AK); 2017 NSTEMI with LHC done and he declined CABG twice after that and did not followup with Dr. Moore or Dr. Joshi. He has been on ASA, Plavix (recurring CVA hx), BB, statin, and long acting nitro. It was recommended at that time that the patient followup outpatient to discuss percutaneous revascularization options vs. proceeding with CABG. He currently has a mildly reduced EF on his most recent echo and is on coreg, imdur, hydralazine (CKD with fluctuant creatinine and noncompliance limited the use of WENDY per old CV notes); per his last DC summary his lasix dose was 80 QD. He was recently admitted by myself for altered mental status likely 2/2 hypoglycemia and was also cleared by Neurology. There was concern at that point that the patient may have been mixing up insulin and taking more of his home pain medication than he was prescribed. He had gotten sleeping medication prior to my encounter and was a very poor historian but denied any typical CV sx and indicated his pain was controlled. 10 sys ROS done and negative aside from HPI PMH, PSH, Family hx, Social hx reviewed Medication list reviewed; pending reconciliation OBJECTIVE: VS, labs, imaging reviewed NAD, AAO, resting comfortably in bed NC AT EOMI PERRLA RRR s1/2 no mgr Lungs CTAB, w/ sym exp NT ND +BS CN2-12 wnl, no fnd Normal mood, appropriate behavior Imaging shows impacted fracture of the L-femoral neck with minimal displacement on CT pelvis CXR reviewed; cardiomegaly and b/l increased interstitial markings suggest mild congestion vs. ILD Old cath report reviewed per old CV note 09/2018 Echo: mod LVE with mild global LV hypo (45-50) RV tds mild TR; 01/2017 echo reviewed Old EKGs compared to new ASSESSMENT AND PLAN: Patient presents with mechanical fall found to have a L-femoral neck fracture 1) L-femoral neck fracture -Orthopedic sgy following; appreciate. Will defer ultimate management to their service. Will opt for SCDs and heparin SQ for DVT px and reevaluate post procedure. Pain control (judicious given hx) as well as bowel regimine will be ordered. Furthermore, given his high risk due to PMH ([place] perioperative index would place him [counting Cr as elevated given the pension to fluctuate] at a 5.9% risk and he would be a Class IV risk with RCRI criteria) we will consult CV to medically optimize him for the procedure. 2) Hx Severe CAD -As described; he was offered CABG for his advanced disease but declined. There has been difficulty following up. Mentioned in last note that there was to be discussion PCI, etc. Will consult Dr. Moore for operative clearance. Holding ASA and plavix and resume when appropriate post op. Continue BB, nitrate, statin. 3) Hx Ischemic CM -Noted; old echos reviewed and CV hx discussed in HPI. As he is NPO for sgy we will hold his home lasix (DC on 80 QD) and avoid fluids and can assess him in the AM if he needs pre vs. postop dose as well as taking into account intraop fluids. Continue his other home medications; not on WENDY for reasons as outlined in chart regarding difficult OP followup 4) Hx CKD -Creatinine at baseline; monitor BMP and Is and Os 5) Hx Mobitz I 2nd degree AVB, chronic -Noted history 6) HTN -Continue home meds 7) HLD -Continue home statin 8) DM -SSI when inpatient; continue long-acting 9) Hx CVA -Continue home plavix when OK with ortho postop; no new complaints/deficits 10) Hx COPD -No exacerbation; continue home inhalers and offer PRN nebs 11) Hx Opiate use -Described; monitor 12) Hx Chronic Pain -Judicious pain medication use given pension for lethargy with medication 13) Fall -Described to be mechanical in nature FENA -Holding off on fluids; assess in the AM. Will hold PO lasix and can give IV dose post op vs. deferring to CV depending on intraop fluid requirements -PRN replete; optimize K and Mg -NPO at midnight for likely procedure -NWB Full Code Consultants: Orthopedics, Cardiology
[2019-01-03] MEDS ORDERED: ACETAMINOPHEN 325 MG TABLET (FP) PO PRN (19:55)
--- NOTE | 2019-01-03 19:55 | HP ---
CHIEF COMPLAINT: fall PCP: Dr. Isbell HISTORY OF PRESENT ILLNESS: Patient is a 68 yo M with a pmhx of CVA (11/13), peripheral neuropathy, IDDM, Ischemic CM with S CHF, HTN, ND (s/p 5 stents), HLD , COPD, GERD, CKD, presents to the ED after a fall which resulted in LLE pain. He said he fell backwards, hitting his head last night after trying to adjust his blankets at home. He denies LOC. He said he couldn't sleep so he took a sleeping pill which made him very somnolent. Patient currently complains of LE pain mostly on his Left knee. He says its a 3/10 pain which stared after he fell. He denies other symptoms. He does not walk much at home and has a hard time standing up. He denies dizziness, sob, nausea, vomiting, chills, fevers, urinary symptoms, chest pain. Patient was recently admitted for hypoglycemia. He has a very complex cardiovascular history; He had a PCI in 2004 with 100% occluded RPDA with patent prior RCA stents. In he had a STEMI. 2011 with anterior STEMI with 2 stents. He also had a stemi in 2018 with LHC done and he declined CABG twice. He never followed up with Dr. Moore and Dr. Joshi afterwards. He was told to follow up outpatient to discuss options of revascularization vs CABG. ER course was notable for: (1) CT pelvis: left femoral neck fracture. Recent Travel: denies PAST MEDICAL HISTORY: per HPI Social History: Smoking: quit a year ago. smoked 4 packs a day for 40 years Alcohol: denies Drugs: denies Family History: Allergies lansoprazole [From Prevacid] Allergy (Intermediate, Verified 05/24/18 07:07) severe abd pain HOME MEDICATIONS: Home Medications Medication Instructions Recorded Aspirin [Ecotrin] 81 mg PO DAILY 04/29/15 Pregabalin [Lyrica] 50 mg PO BID 03/13/17 Isosorbide Mononitrate [Isosorbide 30 mg PO DAILY 06/04/17 Mononitrate ER] Acetaminophen [Tylenol .Regular 650 mg PO Q4H PRN #90 tablet 06/10/17 Strength -] Albuterol 0.083% Nebulizer Clarisse 1 neb NEB QID PRN 10/04/17 [Ventolin 0.083% Nebulizer Soln -] Amlodipine Besylate [Norvasc -] 5 mg PO DAILY #30 tablet 10/09/17 Clopidogrel Bisulfate [Plavix -] 75 mg PO DAILY #30 tablet 10/09/17 Insulin Sliding Scale [Novolog See Protocol SQ TID 05/31/18 Vial Sliding Scale -] Atorvastatin Ca [Lipitor] 40 mg PO HS 10/29/18 Budesonide/Formeterol Fumarate 2 puff IH BID 10/29/18 [SYMBICORT 160/4.5mcg -] Carvedilol [Coreg] 6.25 mg PO BID 10/29/18 Fluticasone/Salmeterol [Advair Hfa 2 puff IH BID 10/29/18 115-21 Mcg Inhaler] Hydralazine HCl 10 mg PO BID 10/29/18 Sodium Bicarbonate - 650 mg PO DAILY 10/29/18 Temazepam 30 mg PO BID 10/29/18 Zolpidem Tartrate [Ambien] 10 mg PO HS 10/29/18 Furosemide [Lasix -] 80 mg PO DAILY tablet 10/31/18 REVIEW OF SYSTEMS CONSTITUTIONAL: Absent: fever, chills, diaphoresis, generalized weakness, malaise, loss of appetite, weight change HEENT: Absent: rhinorrhea, nasal congestion, throat pain, throat swelling, difficulty swallowing, mouth swelling, ear pain, eye pain, visual changes CARDIOVASCULAR: Absent: chest pain, syncope, palpitations, irregular heart rate, lightheadedness , peripheral edema RESPIRATORY: Absent: cough, shortness of breath, dyspnea with exertion, orthopnea, wheezing, stridor, hemoptysis GASTROINTESTINAL: Absent: abdominal pain, abdominal distension, nausea, vomiting, diarrhea, constipation, melena, hematochezia GENITOURINARY: Absent: dysuria, frequency, urgency, hesitancy, hematuria, flank pain, genital pain MUSCULOSKELETAL: Absent: myalgia, arthralgia, joint swelling, back pain, neck pain SKIN: Absent: rash, itching, pallor NEUROLOGIC: Absent: headache, focal weakness or paresthesias, dizziness, unsteady gait, seizure, mental status changes, bladder or bowel incontinence PHYSICAL EXAMINATION Vital Signs - 24 hr 01/03/19 01/03/19 01/03/19 13:10 14:15 17:42 Temperature 98.3 F 98.9 F Pulse Rate 58 L Pulse Rate [ 79 Right Radial] Respiratory 16 18 Rate Blood Pressure 111/60 Blood Pressure 137/78 [Left Arm] O2 Sat by Pulse 10 L 98 96 Oximetry (%) GENERAL: Awake, alert, and fully oriented, in no acute distress. HEAD: Normal with no signs of trauma. EYES: Pupils equal, round and reactive to light, extraocular movements intact, sclera anicteric EARS, NOSE, THROAT: oropharynx clear without exudates. Moist mucous membranes. NECK: supple without lymphadenopathy, JVD, or masses. LUNGS: Breath sounds equal, clear to auscultation bilaterally. No wheezes, and no crackles. HEART: Regular rate and rhythm, normal S1 and S2 without murmur, rub or gallop. ABDOMEN: Soft, nontender, not distended, normoactive bowel sounds, no guarding, no rebound MUSCULOSKELETAL: Left ni with small abrasion, Left hip decreased ROM, 5/5 strength throughout LOWER EXTREMITIES: 2+ pulses, warm, No peripheral edema. NEUROLOGICAL: Cranial nerves II-XII intact. Normal speech. unable to assess gait SKIN: Warm, dry, normal turgor, no rashes or lesions noted, normal capillary refill. Laboratory Results - last 24 hr 01/03/19 01/03/19 01/03/19 14:30 14:30 17:42 WBC 6.9 RBC 2.95 L Hgb 9.9 L Hct 30.8 L MCV 104.4 H MCH 33.6 MCHC 32.2 RDW 19.0 H Plt Count 251 MPV 7.6 Absolute Neuts (auto) 4.5 Neutrophils % 66.3 Neutrophils % (Manual) 62.9 D Band Neutrophils % 1.0 Lymphocytes % 15.4 D Lymphocytes % (Manual) 16.5 D Monocytes % 11.2 H Monocytes % (Manual) 11 H Eosinophils % 4.9 H D Eosinophils % (Manual) 5.2 H D Basophils % 2.2 H Basophils % (Manual) 3.1 H Myelocytes % (Man) 0 Promyelocytes % (Man) 0 Blast Cells % (Manual) 0 Nucleated RBC % 0 Metamyelocytes 0 Hypochromia 0 Platelet Estimate Normal Polychromasia 0 Poikilocytosis 0 Anisocytosis 1+ Microcytosis 0 Macrocytosis 1+ Ovalocytes 1+ Anticoagulation Therapy Puncture Site ABG pH ABG pCO2 at Pt Temp ABG pO2 at Pt Temp ABG HCO3 ABG O2 Sat (Measured) ABG O2 Content ABG Base Excess Alfredo Test O2 Delivery Device Oxygen Flow Rate Vent Mode Vent Rate Mechanical Rate Pressure Support Vent Sodium 145 Potassium 3.5 Chloride 111 H Carbon Dioxide 25 Anion Gap 9 BUN 23 H Creatinine 1.3 Creat Clearance w eGFR 54.57 Random Glucose 122 H Calcium 7.7 L Total Bilirubin 0.2 AST 9 L ALT 11 L Alkaline Phosphatase 121 H Creatine Kinase 19 L Troponin I 0.02 Total Protein 5.0 L Albumin 2.3 L Urine Color Yellow Urine Appearance Clear Urine pH 6.0 Ur Specific [place] 1.016 Urine Protein 1+ H Urine Glucose (UA) Negative Urine Ketones Negative Urine Blood Negative Urine Nitrite Negative Urine Bilirubin Negative Urine Urobilinogen Negative Ur Leukocyte Esterase Trace Urine WBC (Auto) 17 Urine RBC (Auto) 1 Hyaline Casts 5 Urine Mucus Rare 01/03/19 19:00 WBC RBC Hgb Hct MCV MCH MCHC RDW Plt Count MPV Absolute Neuts (auto) Neutrophils % Neutrophils % (Manual) Band Neutrophils % Lymphocytes % Lymphocytes % (Manual) Monocytes % Monocytes % (Manual) Eosinophils % Eosinophils % (Manual) Basophils % Basophils % (Manual) Myelocytes % (Man) Promyelocytes % (Man) Blast Cells % (Manual) Nucleated RBC % Metamyelocytes Hypochromia Platelet Estimate Polychromasia Poikilocytosis Anisocytosis Microcytosis Macrocytosis Ovalocytes Anticoagulation Therapy No Result Required. Puncture Site Right radial ABG pH 7.33 L ABG pCO2 at Pt Temp 42.7 ABG pO2 at Pt Temp 74.8 ABG HCO3 21.7 L ABG O2 Sat (Measured) 94.2 ABG O2 Content 12.7 L ABG Base Excess -3.5 L Alfredo Test Positive O2 Delivery Device Nasal Oxygen Flow Rate Yes Vent Mode No Result Required. Vent Rate No Result Required. Mechanical Rate No Result Required. Pressure Support Vent No Result Required. Sodium Potassium Chloride Carbon Dioxide Anion Gap BUN Creatinine Creat Clearance w eGFR Random Glucose Calcium Total Bilirubin AST ALT Alkaline Phosphatase Creatine Kinase Troponin I Total Protein Albumin Urine Color Urine Appearance Urine pH Ur Specific [place] Urine Protein Urine Glucose (UA) Urine Ketones Urine Blood Urine Nitrite Urine Bilirubin Urine Urobilinogen Ur Leukocyte Esterase Urine WBC (Auto) Urine RBC (Auto) Hyaline Casts Urine Mucus [facility] 05/15: 70-80% mRCA (ISR), 70-80% RPDA (ISR); 70-80% mLAD; 80-90% pLCX (small vessel); 90-95% OM2 (large vessel); 80-90% prox Ramus (large vessel) ...nonobstructive dz of note [id number] ostial RCA, 50-60% eccentric lesion OM1 (large vessel); EDP 30-->25 post-nitro EF 38% (diffuse WMAs) Syntax score 20 Echo 10/29/18: mod LVE, mild global LV hypo (45-50%). RV tds. mild TR. no vegetations noted Echo 05/15: mod to sev decr LVEF; severe hypokinesis of all lindsey except basal segments. nl RV. mild MR/TR. no peric eff. Echo 01/2017: mild global HK, lvef 45-50, nl rv, nl rvsp, mild lae, mild tr ASSESSMENT/PLAN: 68 yo M with a pmhx of CVA, peripheral neuropathy, IDDM, CHF, HTN, ND (s/p 5 stents), HLD, COPD, GERD, CKD, presents to the ED after a mechanical fall and was found to have a L Femoral fracture #L Femoral fracture s/p mechanical fall -CT L Hip: Impacted fracture of the L femoral neck with minimal displacement -Ortho consulted: Dr. Wilkinson -NPO -Patient will need cardiac clearance due to extensive cardiac history. -Cardio consulted: Dr. Moore -Type and screen -PT/INR -Incentive spirometer -No fluids at this time. Assess fluid status in AM #HTN/CAD -cont. home meds -ASA, Plavix -Coreg 6.25 BID -Hydralazine 10mg BID -Isosorbide mono 30mg -norvasc 5mg #Asymptomatic UTI -Trace LE -17 WBC -no tx at this time #Chronic Neck pain -cont. Lyrica 50mg BID #CHF -cont. Lasix 80 mg daily -Echo 10/16: EF 45-50% #CKD -at baseline #COPD -not in acute exacerbation -O2 supplementation to keep O2 sat above 90%. uses 3L of o2 in home -continue neb and symbicort #FEN -No iv fluids -monitor -NPO #DVT -hep sq #dispo: med surge
[2019-01-03] MEDS ORDERED: INSULIN SLIDING SCALE (NOVOLOG) 1 VIAL SQ SCH (20:00)
[2019-01-03] MEDS ORDERED: ALBUTEROL SO4 0.083% IH SOL 2.5 MG/3 ML VIAL.NEB. NEB PRN (20:00)
[2019-01-03] MEDS ORDERED: oxyCODONE HCL 5 MG TABLET ONE (20:14)
[2019-01-03] MEDS ORDERED: BUDESONIDE/FORMETEROL FUMARATE 160/4.5 mcg INHALER IH SCH (22:00)
[2019-01-03] MEDS: CARVEDILOL 6.25 MG TABLET (FP) PO SCH (22:08)
[2019-01-03] MEDS: ZOLPIDEM TARTRATE 5 MG TABLET PO PRN (22:08)
[2019-01-03] MEDS: ATORVASTATIN CA 40 MG TABLET (FP) PO SCH (22:08)
[2019-01-03] MEDS: PREGABALIN 25 MG CAPSULE PO SCH (22:09)
[2019-01-03] MEDS ORDERED: TEMAZEPAM 15 MG CAPSULE PO SCH (22:15)
[2019-01-03] MEDS: HEPARIN NA (PORCINE) 5,000 UNITS/ML 1ML VIAL SQ SCH (22:51)
[2019-01-03] MEDS: INSULIN SLIDING SCALE (NOVOLOG) 1 VIAL SQ SCH (22:52)
[2019-01-03] MEDS: BUDESONIDE/FORMETEROL FUMARATE 80/4.5 mcg INHALER IH SCH (22:52)
[2019-01-03 23:31] VITALS: BMI 26.0
[2019-01-03] MEDS: hydrALAZINE HCL 10 MG TABLET PO SCH (23:40)
[2019-01-04] MEDS: INSULIN SLIDING SCALE (NOVOLOG) 1 VIAL SQ SCH ×5 (02:05→22:00)
[2019-01-04 06:54] LABS: BASO % 1.4 % (0-2.0); EOS % 4.6 % (0-4.5); HEMOGLOBIN 10.1 GM/dL (11.7-16.9); LYMPH % 16.4 % (8-40); MCH 33.9 pg (25.7-33.7); MCHC 32.6 g/dl (32.0-35.9); MEAN CELL VOLUME 104.1 fl (80-96); MEAN PLT VOLUME 8.3 fl (7.5-11.1); MONO % 12.1 % (3.8-10.2); NEUT % 65.5 % (42.8-82.8); PLATELET COUNT 265 K/MM3 (134-434); RBC 2.98 M/mm3 (4.00-5.60); RDW 18.4 % (11.9-15.9); WHITE BLOOD COUNT 6.3 K/mm3 (4.0-10.0)
[2019-01-04 06:56] LABS: INR 1.03 (0.83-1.09); PROTHROMBIN TIME (PATIENT) 12.2 SEC (9.7-13.0)
[2019-01-04 08:10] LABS: ALBUMIN 2.2 g/dl (3.4-5.0); ALK PHOS 111 U/L (45-117); ANION GAP 6 MMOL/L (8-16); BILIRUBIN,TOTAL 0.3 mg/dL (0.2-1); BLOOD UREA NITROGEN 17 mg/dL (7-18); CALCIUM 7.6 mg/dL (8.5-10.1); CHLORIDE 112 mmol/L (98-107); CO2 25 mmol/L (21-32); GLUCOSE,RANDOM 85 mg/dL (74-106); MAGNESIUM 1.2 mg/dL (1.8-2.4); PHOSPHOROUS 3.1 mg/dL (2.5-4.9); POTASSIUM 3.8 mmol/L (3.5-5.1); SGOT/AST 12 U/L (15-37); SGPT/ALT 9 U/L (13-61); SODIUM 144 mmol/L (136-145); TOT PROT 4.7 g/dl (6.4-8.2)
--- NOTE | 2019-01-04 08:12 | PN ---
Progress Note (short form) - Note Progress Note: Pt with minimally displaced femoral neck fracture. Plan OR around 330pm for hip pinning.
--- NOTE | 2019-01-04 08:33 | PN ---
Physical Exam: SUBJECTIVE: Patient seen and examined He had a PCI in 2004 with 100% occluded RPDA with patent prior RCA stents. In he had a STEMI. 2011 with anterior STEMI with 2 stents. He also had a stemi in 2018 with LHC done and he declined CABG twice. compalins of pain in left hip OBJECTIVE: Vital Signs Period Temp Pulse Resp BP Sys/Chandra Pulse Ox Last 24 Hr 98.0 F-99.0 F 58-79 16-20 111-137/60-79 10-98 GENERAL: The patient is awake, alert, and fully oriented, in no acute distress. HEAD: Normal with no signs of trauma. NECK: Trachea midline, full range of motion, supple. LUNGS: Breath sounds equal, clear to auscultation bilaterally, no wheezes, HEART: Regular rate and rhythm, S1, S2 ABDOMEN: Soft, nontender, nondistended, normoactive bowel sounds, no guarding, no rebound, no hepatosplenomegaly, no masses. EXTREMITIES: warm, well-perfused, no edema, left leg moving toes, sensation intact, tenderness in left hip NEUROLOGICAL: Normal speech, PSYCH: Normal mood, normal affect. SKIN: Warm, dry, Laboratory Results - last 24 hr 01/03/19 01/03/19 01/03/19 14:30 14:30 17:42 WBC 6.9 RBC 2.95 L Hgb 9.9 L Hct 30.8 L MCV 104.4 H MCH 33.6 MCHC 32.2 RDW 19.0 H Plt Count 251 MPV 7.6 Absolute Neuts (auto) 4.5 Neutrophils % 66.3 Neutrophils % (Manual) 62.9 D Band Neutrophils % 1.0 Lymphocytes % 15.4 D Lymphocytes % (Manual) 16.5 D Monocytes % 11.2 H Monocytes % (Manual) 11 H Eosinophils % 4.9 H D Eosinophils % (Manual) 5.2 H D Basophils % 2.2 H Basophils % (Manual) 3.1 H Myelocytes % (Man) 0 Promyelocytes % (Man) 0 Blast Cells % (Manual) 0 Nucleated RBC % 0 Metamyelocytes 0 Hypochromia 0 Platelet Estimate Normal Polychromasia 0 Poikilocytosis 0 Anisocytosis 1+ Microcytosis 0 Macrocytosis 1+ Ovalocytes 1+ PT with INR INR Anticoagulation Therapy Puncture Site ABG pH ABG pCO2 at Pt Temp ABG pO2 at Pt Temp ABG HCO3 ABG O2 Sat (Measured) ABG O2 Content ABG Base Excess Alfredo Test O2 Delivery Device Oxygen Flow Rate Vent Mode Vent Rate Mechanical Rate Pressure Support Vent Sodium 145 Potassium 3.5 Chloride 111 H Carbon Dioxide 25 Anion Gap 9 BUN 23 H Creatinine 1.3 Creat Clearance w eGFR 54.57 POC Glucometer Random Glucose 122 H Calcium 7.7 L Phosphorus Magnesium Total Bilirubin 0.2 AST 9 L ALT 11 L Alkaline Phosphatase 121 H Creatine Kinase 19 L Troponin I 0.02 Total Protein 5.0 L Albumin 2.3 L Urine Color Yellow Urine Appearance Clear Urine pH 6.0 Ur Specific [place] 1.016 Urine Protein 1+ H Urine Glucose (UA) Negative Urine Ketones Negative Urine Blood Negative Urine Nitrite Negative Urine Bilirubin Negative Urine Urobilinogen Negative Ur Leukocyte Esterase Trace Urine WBC (Auto) 17 Urine RBC (Auto) 1 Hyaline Casts 5 Urine Mucus Rare 01/03/19 01/03/19 01/04/19 19:00 22:45 02:23 WBC RBC Hgb Hct MCV MCH MCHC RDW Plt Count MPV Absolute Neuts (auto) Neutrophils % Neutrophils % (Manual) Band Neutrophils % Lymphocytes % Lymphocytes % (Manual) Monocytes % Monocytes % (Manual) Eosinophils % Eosinophils % (Manual) Basophils % Basophils % (Manual) Myelocytes % (Man) Promyelocytes % (Man) Blast Cells % (Manual) Nucleated RBC % Metamyelocytes Hypochromia Platelet Estimate Polychromasia Poikilocytosis Anisocytosis Microcytosis Macrocytosis Ovalocytes PT with INR INR Anticoagulation Therapy No Result Required. Puncture Site Right radial ABG pH 7.33 L ABG pCO2 at Pt Temp 42.7 ABG pO2 at Pt Temp 74.8 ABG HCO3 21.7 L ABG O2 Sat (Measured) 94.2 ABG O2 Content 12.7 L ABG Base Excess -3.5 L Alfredo Test Positive O2 Delivery Device Nasal Oxygen Flow Rate Yes Vent Mode No Result Required. Vent Rate No Result Required. Mechanical Rate No Result Required. Pressure Support Vent No Result Required. Sodium Potassium Chloride Carbon Dioxide Anion Gap BUN Creatinine Creat Clearance w eGFR POC Glucometer 111 92 Random Glucose Calcium Phosphorus Magnesium Total Bilirubin AST ALT Alkaline Phosphatase Creatine Kinase Troponin I Total Protein Albumin Urine Color Urine Appearance Urine pH Ur Specific [place] Urine Protein Urine Glucose (UA) Urine Ketones Urine Blood Urine Nitrite Urine Bilirubin Urine Urobilinogen Ur Leukocyte Esterase Urine WBC (Auto) Urine RBC (Auto) Hyaline Casts Urine Mucus 01/04/19 01/04/19 01/04/19 05:40 05:40 05:40 WBC 6.3 RBC 2.98 L Hgb 10.1 L Hct 31.0 L MCV 104.1 H MCH 33.9 H MCHC 32.6 RDW 18.4 H Plt Count 265 MPV 8.3 Absolute Neuts (auto) 4.1 Neutrophils % 65.5 Neutrophils % (Manual) Band Neutrophils % Lymphocytes % 16.4 Lymphocytes % (Manual) Monocytes % 12.1 H Monocytes % (Manual) Eosinophils % 4.6 H Eosinophils % (Manual) Basophils % 1.4 Basophils % (Manual) Myelocytes % (Man) Promyelocytes % (Man) Blast Cells % (Manual) Nucleated RBC % 0 Metamyelocytes Hypochromia Platelet Estimate Polychromasia Poikilocytosis Anisocytosis Microcytosis Macrocytosis Ovalocytes PT with INR 12.20 INR 1.03 Anticoagulation Therapy Puncture Site ABG pH ABG pCO2 at Pt Temp ABG pO2 at Pt Temp ABG HCO3 ABG O2 Sat (Measured) ABG O2 Content ABG Base Excess Alfredo Test O2 Delivery Device Oxygen Flow Rate Vent Mode Vent Rate Mechanical Rate Pressure Support Vent Sodium 144 Potassium 3.8 Chloride 112 H Carbon Dioxide 25 Anion Gap 6 L BUN 17 Creatinine 1.0 Creat Clearance w eGFR > 60 POC Glucometer Random Glucose 85 Calcium 7.6 L Phosphorus 3.1 Magnesium 1.2 L Total Bilirubin 0.3 AST 12 L ALT 9 L Alkaline Phosphatase 111 Creatine Kinase Troponin I Total Protein 4.7 L Albumin 2.2 L Urine Color Urine Appearance Urine pH Ur Specific [place] Urine Protein Urine Glucose (UA) Urine Ketones Urine Blood Urine Nitrite Urine Bilirubin Urine Urobilinogen Ur Leukocyte Esterase Urine WBC (Auto) Urine RBC (Auto) Hyaline Casts Urine Mucus 01/04/19 05:57 WBC RBC Hgb Hct MCV MCH MCHC RDW Plt Count MPV Absolute Neuts (auto) Neutrophils % Neutrophils % (Manual) Band Neutrophils % Lymphocytes % Lymphocytes % (Manual) Monocytes % Monocytes % (Manual) Eosinophils % Eosinophils % (Manual) Basophils % Basophils % (Manual) Myelocytes % (Man) Promyelocytes % (Man) Blast Cells % (Manual) Nucleated RBC % Metamyelocytes Hypochromia Platelet Estimate Polychromasia Poikilocytosis Anisocytosis Microcytosis Macrocytosis Ovalocytes PT with INR INR Anticoagulation Therapy Puncture Site ABG pH ABG pCO2 at Pt Temp ABG pO2 at Pt Temp ABG HCO3 ABG O2 Sat (Measured) ABG O2 Content ABG Base Excess Alfredo Test O2 Delivery Device Oxygen Flow Rate Vent Mode Vent Rate Mechanical Rate Pressure Support Vent Sodium Potassium Chloride Carbon Dioxide Anion Gap BUN Creatinine Creat Clearance w eGFR POC Glucometer 88 Random Glucose Calcium Phosphorus Magnesium Total Bilirubin AST ALT Alkaline Phosphatase Creatine Kinase Troponin I Total Protein Albumin Urine Color Urine Appearance Urine pH Ur Specific [place] Urine Protein Urine Glucose (UA) Urine Ketones Urine Blood Urine Nitrite Urine Bilirubin Urine Urobilinogen Ur Leukocyte Esterase Urine WBC (Auto) Urine RBC (Auto) Hyaline Casts Urine Mucus Active Medications Generic Name Dose Route Start Last Admin Trade Name Freq PRN Reason Stop Dose Admin Acetaminophen 650 mg 01/03/19 19:55 Tylenol - PO Q4H PRN PAIN LEVEL 4 - 6 Albuterol Sulfate 1 amp 01/03/19 20:00 Ventolin 0.083% Nebulizer Soln - NEB Q6H PRN SHORT OF BREATH/WHEEZING Amlodipine Besylate 5 mg 01/04/19 10:00 Norvasc - PO DAILY RADHA Atorvastatin Calcium 40 mg 01/03/19 22:00 01/03/19 22:08 Lipitor - PO 40 mg HS RADHA Administration Budesonide/Formoterol Fumarate 2 puff 01/03/19 22:00 01/03/19 22:52 Symbicort 80/4.5mcg - IH 2 puff BID RADHA Administration Carvedilol 6.25 mg 01/03/19 22:00 01/03/19 22:08 Coreg - PO 6.25 mg BID RADHA Administration Heparin Sodium (Porcine) 5,000 unit 01/03/19 22:00 01/03/19 22:51 Heparin - SQ 5,000 unit BID RADHA Administration Hydralazine HCl 10 mg 01/03/19 22:00 01/03/19 23:40 Apresoline - PO 10 mg BID RADHA Administration Insulin Aspart 1 vial 01/03/19 20:32 01/04/19 06:20 Novolog Vial Sliding Scale - SQ Not Given Q4HPO [facility] Protocol Isosorbide Mononitrate 30 mg 01/04/19 10:00 Imdur - PO DAILY RADHA Pregabalin 50 mg 01/03/19 22:00 01/03/19 22:09 Lyrica - PO 50 mg BID RADHA Administration Fluticasone/Salmeterol 1 puff 01/04/19 10:00 Advair 100mcg/50mcg - IH BID RADHA Sodium Bicarbonate 650 mg 01/04/19 10:00 Sodium Bicarbonate - PO DAILY RADHA Zolpidem Tartrate 5 mg 01/03/19 22:00 01/03/19 22:08 Ambien - PO 5 mg HS PRN Administration INSOMNIA LHC 05/15: 70-80% mRCA (ISR), 70-80% RPDA (ISR); 70-80% mLAD; 80-90% pLCX (small vessel); 90-95% OM2 (large vessel); 80-90% prox Ramus (large vessel) ...nonobstructive dz of note [id number]% ostial RCA, 50-60% eccentric lesion OM1 (large vessel); EDP 30-->25 post-nitro EF 38% (diffuse WMAs) Syntax score 20 Echo 10/29/18: mod LVE, mild global LV hypo (45-50%). RV tds. mild TR. no vegetations noted Echo 05/15: mod to sev decr LVEF; severe hypokinesis of all lindsey except basal segments. nl RV. mild MR/TR. no peric eff. Echo 01/2017: mild global HK, lvef 45-50, nl rv, nl rvsp, mild lae, mild tr ASSESSMENT/PLAN: 68 yo M with a pmhx of CVA, peripheral neuropathy, IDDM, CHF, HTN, IN (s/p 5 stents), HLD, COPD, GERD, CKD, presents to the ED after a mechanical fall and was found to have a L Femoral fracture #Fracture neck of femur left side -Ortho Dr. Wilkinson: going to or around 3 pm [place] -NPO -Patient will need cardiac clearance due to extensive cardiac history. -Cardio consulted: Dr. Moore -Type and screen -PT/INR -Incentive spirometer - pain control #HTN/CAD -cont. home meds -ASA, Plavix -Coreg 6.25 BID -Hydralazine 10mg BID -Isosorbide mono 30mg -norvasc 5mg #Asymptomatic UTI -Trace LE - WBC -no tx at this time #Chronic Neck pain -cont. Lyrica 50mg BID #CHF -cont. Lasix 80 mg daily -Echo 10/16: EF 45-50% #CKD -at baseline #COPD -not in acute exacerbation -O2 supplementation to keep O2 sat above 90%. uses 3L of o2 in home -continue neb and symbicort #FEN -No iv fluids -monitor -NPO #DVT -hep sq #dispo: med surge Visit type - Emergency Visit Emergency Visit: Yes ED Registration Date: 01/03/19 Care time: The patient presented to the Emergency Department on the above date and was hospitalized for further evaluation of their emergent condition. - New Patient This patient is new to me today: Yes Date on this admission: 01/04/19 - Critical Care Critical Care patient: No
[2019-01-04] MEDS: amLODIPine BESYLATE 5 MG TABLET (FP) PO SCH (09:44)
[2019-01-04] MEDS: PREGABALIN 25 MG CAPSULE PO SCH ×2 (09:44→23:16)
[2019-01-04] MEDS: FLUTICASONE/SALMETEROL 100 MCG/50 MCG DISKUS IH SCH ×2 (09:44→22:00)
[2019-01-04] MEDS: ISOSORBIDE MONONITRATE 30 MG TAB.SR.24H (FP) PO SCH (09:44)
[2019-01-04] MEDS: SODIUM BICARBONATE 650 MG TABLET PO SCH (09:44)
[2019-01-04] MEDS: hydrALAZINE HCL 10 MG TABLET PO SCH ×2 (09:44→23:14)
[2019-01-04] MEDS: BUDESONIDE/FORMETEROL FUMARATE 80/4.5 mcg INHALER IH SCH ×2 (09:45→23:17)
[2019-01-04] MEDS: CARVEDILOL 6.25 MG TABLET (FP) PO SCH ×2 (09:45→23:14)
[2019-01-04] MEDS ORDERED: FUROSEMIDE 40 MG TABLET (FP) PO SCH (10:00)
[2019-01-04] MEDS: HEPARIN NA (PORCINE) 5,000 UNITS/ML 1ML VIAL SQ SCH ×2 (10:05→23:15)
[2019-01-04] MEDS ORDERED: DEXTROSE 5%-0.45% SALINE 1,000 ML IV SCH (10:45)
--- NOTE | 2019-01-04 11:20 | CON.CARD ---
Cardiology Consult (text) - Consultation Consultation Note: Chief Complaint: fall History of Present Illness: 68M h/o dm, ckd (1.5-2), CVA 10/2014, CAD s/p STEMI and multiple pci's, ischemic CM with systolic chf, COPD, extensive smoking history (quit 12/2016) here s/p fall. Was trying to get out of bed and tripped and fell. No prodrome sxs. No loc. No cp sob palps dizzy pnd orthopnea le edema. Has been feeling well lately, no anginal sxs. Found to have broken hip, plans for OR today. - Past Medical History [employer]: Yes: CVA, Peripheral Neuropathy Cardio/Vascular: Yes: CHF, HTN, Hyperlipdemia. No: AFIB Pulmonary: Yes: COPD Gastrointestinal: Yes: Other (Colitis) Renal/: Yes: Renal Inusuff, Other (hyperkalemia) Psych: Yes: Addictions Musculoskeletal: Yes: Other (Lumbar radiculopathy) Endocrine: Yes: Diabetes Mellitus - Past Surgical History Past Surgical History: Yes: Stent - Alcohol/Substance Use Hx Alcohol Use: No History of Substance Use: reports: None - Smoking History Smoking history: ex tob - Social History Usual Living Arrangement: With Spouse ADL: Independent History of Recent Travel: No Home Medications - Allergies Allergies/Adverse Reactions: Allergies Allergy/AdvReac Type Severity Reaction Status Date / Time lansoprazole [From Prevacid] Allergy Intermediate Verified 05/24/18 07:07 - Home Medications Home Medications Medication Instructions Recorded Aspirin [Ecotrin] 81 mg PO DAILY 04/29/15 Pregabalin [Lyrica] 50 mg PO BID 03/13/17 Isosorbide Mononitrate [Isosorbide 30 mg PO DAILY 06/04/17 Mononitrate ER] Acetaminophen [Tylenol .Regular 650 mg PO Q4H PRN #90 tablet 06/10/17 Strength -] Albuterol 0.083% Nebulizer Clarisse 1 neb NEB QID PRN 10/04/17 [Ventolin 0.083% Nebulizer Soln -] Amlodipine Besylate [Norvasc -] 5 mg PO DAILY #30 tablet 10/09/17 Clopidogrel Bisulfate [Plavix -] 75 mg PO DAILY #30 tablet 10/09/17 Insulin Sliding Scale [Novolog See Protocol SQ TID 05/31/18 Vial Sliding Scale -] Atorvastatin Ca [Lipitor] 40 mg PO HS 10/29/18 Budesonide/Formeterol Fumarate 2 puff IH BID 10/29/18 [SYMBICORT 160/4.5mcg -] Carvedilol [Coreg] 6.25 mg PO BID 10/29/18 Fluticasone/Salmeterol [Advair Hfa 2 puff IH BID 10/29/18 115-21 Mcg Inhaler] Hydralazine HCl 10 mg PO BID 10/29/18 Sodium Bicarbonate - 650 mg PO DAILY 10/29/18 Temazepam 30 mg PO BID 10/29/18 Zolpidem Tartrate [Ambien] 10 mg PO HS 10/29/18 Furosemide [Lasix -] 80 mg PO DAILY tablet 10/31/18 Family Disease History - Family Disease History Family Disease History: Diabetes: Grandparent, Sister (COPD), CA: Father, Respiratory: Sister, Other: Mother (CVA) Review of Systems - Review of Systems per hpi; no nvd, salas, vision changes, gib, hematuria, dysuria, muscle pain Physical Exam Vital Signs: Vital Signs Period Temp Pulse Resp BP Sys/Chandra Pulse Ox Last 24 Hr 98 F-99.0 F 58-80 16-20 111-159/60-79 10-98 nad no jvd rrr s1s2 no mrg cta bl nl eff aaox3 no le e/c/c abd nt nd pos bs no jaundice diaphoresis pos dp pt no carotid bruits Laboratory Last Values WBC 6.3 K/mm3 (4.0-10.0) 01/04/19 05:40 RBC 2.98 M/mm3 (4.00-5.60) L 01/04/19 05:40 Hgb 10.1 GM/dL (11.7-16.9) L 01/04/19 05:40 Hct 31.0 % (35.4-49) L 01/04/19 05:40 MCV 104.1 fl (80-96) H 01/04/19 05:40 MCH 33.9 pg (25.7-33.7) H 01/04/19 05:40 MCHC 32.6 g/dl (32.0-35.9) 01/04/19 05:40 RDW 18.4 % (11.9-15.9) H 01/04/19 05:40 Plt Count 265 K/MM3 (134-434) 01/04/19 05:40 MPV 8.3 fl (7.5-11.1) 01/04/19 05:40 Absolute Neuts (auto) 4.1 K/mm3 (1.5-8.0) 01/04/19 05:40 Neutrophils % 65.5 % (42.8-82.8) 01/04/19 05:40 Neutrophils % (Manual) 62.9 % (42.8-82.8) D 01/03/19 14:30 Band Neutrophils % 1.0 % 01/03/19 14:30 Lymphocytes % 16.4 % (8-40) 01/04/19 05:40 Lymphocytes % (Manual) 16.5 % (8-40) D 01/03/19 14:30 Monocytes % 12.1 % (3.8-10.2) H 01/04/19 05:40 Monocytes % (Manual) 11 % (3.8-10.2) H 01/03/19 14:30 Eosinophils % 4.6 % (0-4.5) H 01/04/19 05:40 Eosinophils % (Manual) 5.2 % (0-4.5) H D 01/03/19 14:30 Basophils % 1.4 % (0-2.0) 01/04/19 05:40 Basophils % (Manual) 3.1 % (0-2.0) H 01/03/19 14:30 Myelocytes % (Man) 0 % (0-2) 01/03/19 14:30 Promyelocytes % (Man) 0 % (0-2) 01/03/19 14:30 Blast Cells % (Manual) 0 % (0-0) 01/03/19 14:30 Nucleated RBC % 0 % (0-0) 01/04/19 05:40 Metamyelocytes 0 % (0-2) 01/03/19 14:30 Hypochromia 0 01/03/19 14:30 Platelet Estimate Normal 01/03/19 14:30 Polychromasia 0 01/03/19 14:30 Poikilocytosis 0 01/03/19 14:30 Anisocytosis 1+ 01/03/19 14:30 Microcytosis 0 01/03/19 14:30 Macrocytosis 1+ 01/03/19 14:30 Ovalocytes 1+ 01/03/19 14:30 PT with INR 12.20 SEC (9.7-13.0) 01/04/19 05:40 INR 1.03 (0.83-1.09) 01/04/19 05:40 Anticoagulation Therapy No Result Required. 01/03/19 19:00 Puncture Site Right radial 01/03/19 19:00 ABG pH 7.33 (7.35-7.45) L 01/03/19 19:00 ABG pCO2 at Pt Temp 42.7 mmHg (35-45) 01/03/19 19:00 ABG pO2 at Pt Temp 74.8 mmHg (70-100) 01/03/19 19:00 ABG HCO3 21.7 meq/L (22-26) L 01/03/19 19:00 ABG O2 Sat (Measured) 94.2 % (90-98.9) 01/03/19 19:00 ABG O2 Content 12.7 % vol (15-22) L 01/03/19 19:00 ABG Base Excess -3.5 meq/l (-2-2) L 01/03/19 19:00 Alfredo Test Positive 01/03/19 19:00 O2 Delivery Device Nasal 01/03/19 19:00 Oxygen Flow Rate Yes 01/03/19 19:00 Vent Mode No Result Required. 01/03/19 19:00 Vent Rate No Result Required. 01/03/19 19:00 Mechanical Rate No Result Required. 01/03/19 19:00 Pressure Support Vent No Result Required. 01/03/19 19:00 Sodium 144 mmol/L (136-145) 01/04/19 05:40 Potassium 3.8 mmol/L (3.5-5.1) 01/04/19 05:40 Chloride 112 mmol/L (98-107) H 01/04/19 05:40 Carbon Dioxide 25 mmol/L (21-32) 01/04/19 05:40 Anion Gap 6 MMOL/L (8-16) L 01/04/19 05:40 BUN 17 mg/dL (7-18) 01/04/19 05:40 Creatinine 1.0 mg/dL (0.55-1.3) 01/04/19 05:40 Creat Clearance w eGFR > 60 (>60) 01/04/19 05:40 POC Glucometer 77 UNITS (80-120) 01/04/19 10:08 Random Glucose 85 mg/dL (74-106) 01/04/19 05:40 Calcium 7.6 mg/dL (8.5-10.1) L 01/04/19 05:40 Phosphorus 3.1 mg/dL (2.5-4.9) 01/04/19 05:40 Magnesium 1.2 mg/dL (1.8-2.4) L 01/04/19 05:40 Total Bilirubin 0.3 mg/dL (0.2-1) 01/04/19 05:40 AST 12 U/L (15-37) L 01/04/19 05:40 ALT 9 U/L (13-61) L 01/04/19 05:40 Alkaline Phosphatase 111 U/L (45-117) 01/04/19 05:40 Creatine Kinase 19 U/L (26-308) L 01/03/19 14:30 Troponin I 0.02 ng/ml (0.00-0.05) 01/03/19 14:30 Total Protein 4.7 g/dl (6.4-8.2) L 01/04/19 05:40 Albumin 2.2 g/dl (3.4-5.0) L 01/04/19 05:40 Urine Color Yellow 01/03/19 17:42 Urine Appearance Clear 01/03/19 17:42 Urine pH 6.0 (5.0-8.0) 01/03/19 17:42 Ur Specific [place] 1.016 (1.010-1.035) 01/03/19 17:42 Urine Protein 1+ (NEGATIVE) H 01/03/19 17:42 Urine Glucose (UA) Negative (NEGATIVE) 01/03/19 17:42 Urine Ketones Negative (NEGATIVE) 01/03/19 17:42 Urine Blood Negative (NEGATIVE) 01/03/19 17:42 Urine Nitrite Negative (NEGATIVE) 01/03/19 17:42 Urine Bilirubin Negative (<2.0 mg/dL) 01/03/19 17:42 Urine Urobilinogen Negative mg/dL (0.2-1.0) 01/03/19 17:42 Ur Leukocyte Esterase Trace (NEGATIVE) 01/03/19 17:42 Urine WBC (Auto) 17 /hpf (3-5) 01/03/19 17:42 Urine RBC (Auto) 1 /hpf (0-3) 01/03/19 17:42 Hyaline Casts 5 /lpf 01/03/19 17:42 Urine Mucus Rare 01/03/19 17:42 Blood Type AB POSITIVE 01/04/19 08:54 Antibody Screen Negative 01/04/19 08:54 ecg: sr, 1avb, rbbb. inf q's, no sig change prior CXR: central congestion, stable compared to prior [facility] 05/15: 70-80% mRCA (ISR), 70-80% RPDA (ISR); 70-80% mLAD; 80-90% pLCX (small vessel); 90-95% OM2 (large vessel); 80-90% prox Ramus (large vessel) ...nonobstructive dz of note [id number]% ostial RCA, 50-60% eccentric lesion OM1 (large vessel); EDP 30-->25 post-nitro EF 38% (diffuse WMAs) Syntax score 20 Echo 10/29/18: mod LVE, mild global LV hypo (45-50%). RV tds. mild TR. no vegetations noted Echo 05/15: mod to sev decr LVEF; severe hypokinesis of all lindsey except basal segments. nl RV. mild MR/TR. no peric eff. Echo 01/2017: mild global HK, lvef 45-50, nl rv, nl rvsp, mild lae, mild tr a/p: 68M h/o dm, ckd (1.5-2), CVA 10/2014, CAD s/p STEMI and multiple pci's, ischemic CM with systolic chf, COPD, extensive smoking history (quit 12/2016) here s/p fall. fall, hip fx: -mechanical fall, no signs cardiac etiology -found to have hip fracture -no cardiac contraindications (intermediate risk) to planned hip surgery. Avoid excess IVFs given his CHF hx. hx CVA -dx'd lacunar infarct 2013 clinically then (slurred speech) -? acute CVA/TIA 2014, seen by neuro then--ASA added to prior plavix at that time - on aspirin and plavix for recurrent strokes, continue CAD: -2004 s/p PCI ([facility]) to 100% occl RPDA ([facility]) with patent prior RCA stents at that time, EF 50% then; -2011 s/p anterior STEMI 2011 with [place] LIBBY x 2 to mid LAD then ([facility]); residual 80% prox D1 (large vessel), 95% mD1; 70%mRCA (pre and post prior stents), 70% dCFX; (also 40% RPDA; 60% pCFX; 40% mCFX;) EF then 37% with AK of apex/AL lindsey and AK of IW; -2016 s/p NSTEMI in setting of sepsis/PNA-->[facility] with 70-80% mRCA (ISR), 70-80% RPDA (ISR); 70-80% mLAD; 80-90% pLCX (small vessel); 90-95% OM2 (large vessel); 80-90% prox Ramus (large vessel), 30-50% ostial RCA, 50-60% eccentric lesion OM1 (large vessel); -pt declined cabg twice after that, and has not followed up with cardiology in office -no signs ACS here -on ASA and plavix from before (for recurrent CVAs)--cont same -cont home BB, statin, imdur -outpt cardio followup if pt willing isch CMP/ chronic syst CHF: -mildly reduced EF on last echo -cont home coreg, imdur, hydralazine for chf regimen -h/o BRANT (creat to 2.5) with WENDY in past--stopped. 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
[2019-01-04 11:37] LABS: ANISOCYTOSIS 2+; MACROCYTOSIS 1+; OVALOCYTE 1+; PLATELET ESTIMATE NORMAL; TARGET CELLS 1+; TEAR DROP CELLS 1+
--- NOTE | 2019-01-04 13:18 | PN ---
Progress Note (short form) - Note Progress Note: Spoke to Dr. Wilkinson. We agreed to postpone surgery until plavix has been held a sufficient time to do case under a spinal. We both felt that sparing this patient a general anesthetic would decrease perioperative risk given that he is chronically bed bound, and has severe COPD with an O2 Sat of 93% on 3L NC at rest. It will also afford greater hemodynamic stability intra operatively.
--- NOTE | 2019-01-04 14:20 | EKG ---
Test Reason : Blood Pressure : / mmHG Vent. Rate : 067 BPM Atrial Rate : 077 BPM P-R Int : 000 ms QRS Dur : 138 ms QT Int : 446 ms P-R-T Axes : 076 -67 077 degrees QTc Int : 471 ms SINUS RHYTHM WITH 1ST DEGREE A-V BLOCK WITH FUSION COMPLEXES LEFT AXIS DEVIATION RIGHT BUNDLE BRANCH BLOCK INFERIOR INFARCT (CITED ON OR BEFORE 16-SEP-2001) ABNORMAL ECG Confirmed by ERINN CARDOZA MD ([id number]) on 01/04/2019 2:20:21 PM Referred By: Confirmed By:ERINN CARDOZA MD
--- NOTE | 2019-01-04 14:39 | PN ---
Teaching Attending Note Name of Resident: Javier Villela ATTENDING PHYSICIAN STATEMENT I saw and evaluated the patient. I reviewed the resident's note and discussed the case with the resident. I agree with the resident's findings and plan as documented. SUBJECTIVE: Mr Scott says he is having leg pain. Denies cp, sob, n/v OBJECTIVE: Last Vital Signs Temp Pulse Resp BP Pulse Ox 36.6 C 80 18 159/74 93 L 01/04/19 09:37 01/04/19 09:37 01/04/19 09:37 01/04/19 09:37 01/04/19 09:37 Gen: nad Pulm: ctab w/o w/r/r CV: rrr w/o m/r/g Abd: +bs, s/nt/nd Ext: no c/c/e CBC, BMP 01/04/19 05:40 01/04/19 05:40 ASSESSMENT AND PLAN: Problem List - Problems (1) Fracture of femoral neck, left Assessment/Plan: -found to have femoral neck fracture on CT scan -will need surgery -however planning for spinal anesthesia for safety -will need plavix held -hold plavix, undergo surgery when deemed safe Code(s): S72.002A - FRACTURE OF UNSP PART OF NECK OF LEFT FEMUR, INIT Qualifiers: Encounter type: initial encounter Fracture type: closed Qualified Code(s) : S72.002A - Fracture of unspecified part of neck of left femur, initial encounter for closed fracture (2) Fall Assessment/Plan: -fall risk precautions Code(s): W19.XXXA - UNSPECIFIED FALL, INITIAL ENCOUNTER Qualifiers: (3) Chronic respiratory failure Assessment/Plan: -stable -continue COPD treatment -continue oxygen support Code(s): J96.10 - CHRONIC RESPIRATORY FAILURE, UNSP W HYPOXIA OR HYPERCAPNIA Qualifiers: (4) CAD (coronary artery disease) Assessment/Plan: -appreciate cardiology assistance -holding plavix -continue current management Code(s): I25.10 - ATHSCL HEART DISEASE OF [place] CORONARY ARTERY W/O ANG PCTRS Qualifiers: [place] vs. transplanted heart: [place] heart Associated angina: without angina (5) CKD (chronic kidney disease) Assessment/Plan: -baseline Code(s): N18.9 - CHRONIC KIDNEY DISEASE, UNSPECIFIED Qualifiers: Chronic kidney disease stage: stage 2 (mild) Qualified Code(s): N18.2 - Chronic kidney disease, stage 2 (mild) (6) COPD (chronic obstructive pulmonary disease) Assessment/Plan: -not in exacerbation -continue current regimen Code(s): J44.9 - CHRONIC OBSTRUCTIVE PULMONARY DISEASE, UNSPECIFIED (7) Congestive heart failure (CHF) Assessment/Plan: -continue coreg, hydralazine, imdur -not in exacerbation Code(s): I50.9 - HEART FAILURE, UNSPECIFIED (8) Diabetes mellitus Assessment/Plan: -diabetic diet -FSBS and SSI Code(s): E11.9 - TYPE 2 DIABETES MELLITUS WITHOUT COMPLICATIONS Qualifiers: Diabetes mellitus type: type 2 Diabetes mellitus middle or intermediate school principal insulin use: with skilled nursing use Diabetes mellitus complication status: with circulatory complication Diabetes mellitus complication detail: with peripheral angiopathy with gangrene Qualified Code(s): E11.52 - Type 2 diabetes mellitus with diabetic peripheral angiopathy with gangrene (9) Hyperlipidemia Assessment/Plan: -continue lipitor Code(s): E78.5 - HYPERLIPIDEMIA, UNSPECIFIED (10) Hypertension Assessment/Plan: -continue current regimen Code(s): I10 - ESSENTIAL (PRIMARY) HYPERTENSION Qualifiers: Hypertension type: essential hypertension Qualified Code(s): I10 - Essential (primary) hypertension
[2019-01-04] MEDS: ACETAMINOPHEN 325 MG TABLET (FP) PO PRN (17:54)
[2019-01-04] MEDS ORDERED: PANTOPRAZOLE 40 MG TABLET (FP) PO SCH (22:00)
[2019-01-04] MEDS: LANSOPRAZOLE 30 MG PO SCH (22:00)
[2019-01-04] MEDS: ATORVASTATIN CA 40 MG TABLET (FP) PO SCH (23:16)
[2019-01-04] MEDS: ZOLPIDEM TARTRATE 5 MG TABLET PO PRN (23:17)
[2019-01-05] MEDS: ACETAMINOPHEN 325 MG TABLET (FP) PO PRN ×4 (05:56→21:46)
[2019-01-05] MEDS: INSULIN SLIDING SCALE (NOVOLOG) 1 VIAL SQ SCH ×4 (05:59→22:06)
[2019-01-05 06:51] LABS: BASO % 1.3 % (0-2.0); EOS % 2.8 % (0-4.5); HEMATOCRIT 31.3 % (35.4-49); HEMOGLOBIN 10.1 GM/dL (11.7-16.9); LYMPH % 8.3 % (8-40); MCH 33.4 pg (25.7-33.7); MCHC 32.3 g/dl (32.0-35.9); MEAN CELL VOLUME 103.3 fl (80-96); MEAN PLT VOLUME 8.4 fl (7.5-11.1); MONO % 9.8 % (3.8-10.2); NEUT % 77.8 % (42.8-82.8); PLATELET COUNT 291 K/MM3 (134-434); RBC 3.03 M/mm3 (4.00-5.60); RDW 18.9 % (11.9-15.9); WHITE BLOOD COUNT 7.8 K/mm3 (4.0-10.0)
[2019-01-05 06:58] LABS: ALBUMIN 2.3 g/dl (3.4-5.0); ALK PHOS 126 U/L (45-117); ANION GAP 9 MMOL/L (8-16); BILIRUBIN,TOTAL 0.4 mg/dL (0.2-1); BLOOD UREA NITROGEN 14 mg/dL (7-18); CALCIUM 7.7 mg/dL (8.5-10.1); CHLORIDE 110 mmol/L (98-107); CO2 27 mmol/L (21-32); CREATININE 0.9 mg/dL (0.55-1.3); GLUCOSE,RANDOM 104 mg/dL (74-106); SGOT/AST 13 U/L (15-37); SGPT/ALT 10 U/L (13-61); SODIUM 146 mmol/L (136-145); TOT PROT 5.1 g/dl (6.4-8.2)
[2019-01-05] MEDS ORDERED: PT OWN MED DRAWER 7, Y5N ONE ×2 (09:04→14:44)
[2019-01-05] MEDS: CARVEDILOL 6.25 MG TABLET (FP) PO SCH ×2 (09:06→21:43)
[2019-01-05] MEDS: ISOSORBIDE MONONITRATE 30 MG TAB.SR.24H (FP) PO SCH (09:06)
[2019-01-05] MEDS: HEPARIN NA (PORCINE) 5,000 UNITS/ML 1ML VIAL SQ SCH ×2 (09:06→21:43)
[2019-01-05] MEDS: amLODIPine BESYLATE 5 MG TABLET (FP) PO SCH (09:06)
[2019-01-05] MEDS: SODIUM BICARBONATE 650 MG TABLET PO SCH (09:06)
[2019-01-05] MEDS: PREGABALIN 25 MG CAPSULE PO SCH ×2 (09:07→21:43)
[2019-01-05] MEDS: BUDESONIDE/FORMETEROL FUMARATE 80/4.5 mcg INHALER IH SCH ×2 (09:09→21:48)
[2019-01-05] MEDS: hydrALAZINE HCL 10 MG TABLET PO SCH ×2 (09:09→21:50)
[2019-01-05] MEDS: FLUTICASONE/SALMETEROL 100 MCG/50 MCG DISKUS IH SCH ×2 (09:09→21:49)
--- NOTE | 2019-01-05 09:39 | CON.ORTH ---
Consult Consult Specialty:: Orthopedic surgery Reason for Consultation:: Hip fracture - History of Present Illness Chief Complaint: left hip pain History of Present Illness: This is a 68-year-old gentleman with extensive past medical history who tripped and fell while getting out of bed. He was found to have a left impacted femoral neck fracture. Orthopedic consultation was called. Patient is complaining only of left hip pain. He denies any other areas of pain. He is unable to move out of bed. 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, Peripheral Neuropathy Cardio/Vascular: Yes: CHF, HTN, Hyperlipdemia, Hyperlipdemia, [place] Pulmonary: Yes: COPD, O2 Dependent, Pneumonia, Previously Intubated Gastrointestinal: Yes: Other, GERD, Other Renal/: Yes: Renal Inusuff, Other Infectious Disease: Yes: MRSA Psych: Yes: Addictions Musculoskeletal: Yes: Other, Other Endocrine: Yes: Diabetes Mellitus - Past Surgical History Past Surgical History: Yes: Stent (PCIX5) - Alcohol/Substance Use Hx Alcohol Use: No History of Substance Use: reports: None - Smoking History Smoking history: Unknown if ever smoked Have you smoked in the past 12 months: No Aproximately how many cigarettes per day: 30 If you are a former smoker, when did you quit?: 2017 - Social History Usual Living Arrangement: With Spouse ADL: Independent History of Recent Travel: No Home Medications - Allergies Allergies/Adverse Reactions: Allergies Allergy/AdvReac Type Severity Reaction Status Date / Time lansoprazole [From Prevacid] Allergy Intermediate Verified 05/24/18 07:07 - Home Medications Home Medications: Ambulatory Orders Aspirin [Ecotrin] 81 mg PO DAILY 04/29/15 Pregabalin [Lyrica] 50 mg PO BID 03/13/17 Isosorbide Mononitrate [Isosorbide Mononitrate ER] 30 mg PO DAILY 06/04/17 Acetaminophen [Tylenol .Regular Strength -] 650 mg PO Q4H PRN #90 tablet Albuterol 0.083% Nebulizer Clarisse [Ventolin 0.083% Nebulizer Soln -] 1 neb NEB QID PRN 10/04/17 Amlodipine Besylate [Norvasc -] 5 mg PO DAILY #30 tablet 10/09/17 Clopidogrel Bisulfate [Plavix -] 75 mg PO DAILY #30 tablet 10/09/17 Insulin Sliding Scale [Novolog Vial Sliding Scale -] See Protocol SQ TID Atorvastatin Ca [Lipitor] 40 mg PO HS 10/29/18 Budesonide/Formeterol Fumarate [SYMBICORT 160/4.5mcg -] 2 puff IH BID 10/29/18 Carvedilol [Coreg] 6.25 mg PO BID 10/29/18 Fluticasone/Salmeterol [Advair Hfa 115-21 Mcg Inhaler] 2 puff IH BID 10/29/18 Hydralazine HCl 10 mg PO BID 10/29/18 Sodium Bicarbonate - 650 mg PO DAILY 10/29/18 Temazepam 30 mg PO BID 10/29/18 Zolpidem Tartrate [Ambien] 10 mg PO HS 10/29/18 Furosemide [Lasix -] 80 mg PO DAILY tablet 10/31/18 Lansoprazole [Prevacid] 30 mg PO HS 01/04/19 Family Disease History - Family Disease History Family Disease History: Diabetes: Grandparent, Father, Mother (CVA, COPD), Sister (COPD), Heart Disease: Mother, CA: Father, Respiratory: Mother, Sister, Other: Mother Physical Exam for Ortho Vital Signs: Vital Signs Temperature 97.8 F 01/05/19 07:59 Pulse Rate 76 01/05/19 07:59 Respiratory Rate 16 01/05/19 07:59 Blood Pressure 155/95 01/05/19 07:59 O2 Sat by Pulse Oximetry (%) 94 L 01/04/19 22:00 Constitutional: Yes: Well Nourished, No Distress, Obese Respiratory: Yes: Regular Extremities: Yes: Other (Examination of the left lower extremity demonstrates no skin lesions. There is no swelling. There is tenderness about the hip. There is painful range of motion which is quite limited. The knee is nontender. The ankle is nontender. His distal neurovascular exam is grossly intact.) Labs: CBC, BMP 01/05/19 06:00 01/05/19 06:00 INR, PTT INR 1.03 (0.83-1.09) 01/04/19 05:40 Imaging - Results X-ray: Report Reviewed, Image Reviewed Cat Scan: Report Reviewed, Image Reviewed (there is an impacted femoral neck fracture present) Problem List - Problems (1) Nondisplaced fracture of base of neck of left femur, initial encounter for closed fracture Assessment/Plan: I discussed today's findings with Joao. His hip has an impacted fracture. In general, the ideal treatment for this is hip pinning. This allows for stabilization of the fracture while the body heals itself. Nonoperative care may result in fracture instability, resulting in displacement and need for hip hemiarthroplasty. We discussed that there is a small risk after hip pinning that displacement occurs anyway. I reviewed surgical risks including bleeding, infection, neurovascular injury, need for further surgery, postoperative pain and stiffness, nonunion, malunion, hardware failure or cut out. I reviewed medical risks such as heart attack, stroke, DVT, PE or . I discussed with Joao that given his extensive medical comorbidities, I consider him high risk for surgery however, he is also high risk should he choose for nonoperative care given that he would need to be on prolonged bed rest. After having consulted with the internal medicine team, cardiology, anesthesiology, there is an unclear answer as to the timing of surgery. One option is to perform the hip pinning under general anesthetic. Given his cardiopulmonary history, he has a higher risk of being unable to be weaned from ventilator. This means he would stay with a breathing tube after surgery. Alternatively, he could be treated with a spinal anesthetic. Given that he was on Plavix, anesthesiology guidelines recommend 7 days from the last dose until surgery is performed. This would result in a significant amount of time immobilized in bed, putting him at risk for bedsores, pneumonia, DVT. In general, the orthopedic literature suggests that patients treated earlier have less chance of morbidity and mortality. I addressed all of Joao's questions and concerns. He is amenable to either immediate or delayed surgery. I have placed a phone call to his to further discuss this. I also discussed the case with my partner, Dr. Finch who is on-call this weekend should we choose to proceed with surgery in the next 1-2 days. Consult was entered this morning as the computer system went down last night. Code(s): S72.045A - NONDISP FX OF BASE OF NECK OF LEFT FEMUR, INIT FOR CLOS FX
[2019-01-05] MEDS ORDERED: ASPIRIN COATED 81 MG TABLET.EC PO SCH (10:00)
--- NOTE | 2019-01-05 10:30 | PN ---
Progress Note (short form) - Note Progress Note: reviewed films and spoke with patient and they agree with plan to perform cannulated screw placement for left impacted femoral neck fracture -r/b/a discussed with patient and family -they understand increased risk of bleeding complications due to chronic plavix use (held for past 48hrrs). However, bleeding risk low given small nature of incision and dissection with this type of procedure. This is weighted against risk of recumbency complications for waiting one week prior to doing the procedure. -they understand risk of early versus late non union/hardware failure - this would necessitate hardware removal and conversion to hemiarthroplasty -they understand general risks of surgery including anesthesia complications, infection, neurologic injury, vascular injury. -all questions answered, informed consent obtained.
[2019-01-05] MEDS: oxyCODONE HCL 5 MG TABLET PO PRN ×3 (11:29→19:51)
--- NOTE | 2019-01-05 11:40 | PN ---
Progress Note, Physician Chief Complaint: Mr Scott complains of pain. Denies cp, sob, n/v. - Current Medication List Current Medications: Active Medications Acetaminophen (Tylenol -) 650 mg PO Q4H PRN PRN Reason: FEVER Last Admin: 01/05/19 10:14 Dose: 650 mg Albuterol Sulfate (Ventolin 0.083% Nebulizer Soln -) 1 amp NEB Q6H PRN PRN Reason: SHORT OF BREATH/WHEEZING Amlodipine Besylate (Norvasc -) 5 mg PO DAILY [facility] Last Admin: 01/05/19 09:06 Dose: 5 mg Aspirin (Ecotrin -) 81 mg PO DAILY [facility] Last Admin: 01/05/19 10:16 Dose: Not Given Atorvastatin Calcium (Lipitor -) 40 mg PO [facility] Last Admin: 01/04/19 23:16 Dose: 40 mg Budesonide/Formoterol Fumarate (Symbicort 80/4.5mcg -) 2 puff IH BID [facility] Last Admin: 01/05/19 09:09 Dose: 2 puff Carvedilol (Coreg -) 6.25 mg PO BID [facility] Last Admin: 01/05/19 09:06 Dose: 6.25 mg Heparin Sodium (Porcine) (Heparin -) 5,000 unit SQ BID [facility] Last Admin: 01/05/19 09:06 Dose: 5,000 unit Hydralazine HCl (Apresoline -) 10 mg PO BID [facility] Last Admin: 01/05/19 09:09 Dose: 10 mg Insulin Aspart (Novolog Vial Sliding Scale -) 1 vial SQ [facility]; Protocol Last Admin: 01/05/19 11:18 Dose: Not Given Isosorbide Mononitrate (Imdur -) 30 mg PO DAILY [facility] Last Admin: 01/05/19 09:06 Dose: 30 mg Previcid 30 Mg (Capsule (Home Med)) 1 each PO [facility] Last Admin: 01/04/19 22:00 Dose: 1 each Oxycodone HCl (Roxicodone -) 10 mg PO Q4H PRN PRN Reason: PAIN LEVEL 6-10 Last Admin: 01/05/19 11:29 Dose: 10 mg Pregabalin (Lyrica -) 50 mg PO BID [facility] Last Admin: 01/05/19 09:07 Dose: 50 mg Fluticasone/Salmeterol (Advair 100mcg/50mcg -) 1 puff IH BID [facility] Last Admin: 01/05/19 09:09 Dose: 1 puff Sodium Bicarbonate (Sodium Bicarbonate -) 650 mg PO DAILY [facility] Last Admin: 01/05/19 09:06 Dose: 650 mg Zolpidem Tartrate (Ambien -) 5 mg PO HS PRN PRN Reason: INSOMNIA Last Admin: 01/04/19 23:17 Dose: 5 mg - Objective Vital Signs: Vital Signs Temperature 36.6 C 01/05/19 07:59 Pulse Rate 76 01/05/19 07:59 Respiratory Rate 16 01/05/19 07:59 Blood Pressure 155/95 01/05/19 07:59 O2 Sat by Pulse Oximetry (%) 94 L 01/05/19 09:00 Constitutional: Yes: Well Nourished, No Distress, Calm Cardiovascular: Yes: Regular Rate and Rhythm. No: Gallop, Murmur, Rub Respiratory: Yes: Regular, CTA Bilaterally. No: Rales, Rhonchi, Wheezes Gastrointestinal: Yes: Normal Bowel Sounds, Soft. No: Distention, Tenderness Extremities: Yes: WNL Edema: No Labs: CBC, BMP 01/05/19 06:00 01/05/19 06:00 INR, PTT INR 1.03 (0.83-1.09) 01/04/19 05:40 Problem List - Problems (1) Fracture of femoral neck, left Code(s): S72.002A - FRACTURE OF UNSP PART OF NECK OF LEFT FEMUR, INIT Qualifiers: Encounter type: initial encounter Fracture type: closed Qualified Code(s) : S72.002A - Fracture of unspecified part of neck of left femur, initial encounter for closed fracture (2) Fall Code(s): W19.XXXA - UNSPECIFIED FALL, INITIAL ENCOUNTER Qualifiers: (3) Chronic respiratory failure Code(s): J96.10 - CHRONIC RESPIRATORY FAILURE, UNSP W HYPOXIA OR HYPERCAPNIA Qualifiers: (4) CAD (coronary artery disease) Code(s): I25.10 - ATHSCL HEART DISEASE OF [place] CORONARY ARTERY W/O ANG PCTRS Qualifiers: [place] vs. transplanted heart: [place] heart Associated angina: without angina (5) CKD (chronic kidney disease) Code(s): N18.9 - CHRONIC KIDNEY DISEASE, UNSPECIFIED Qualifiers: Chronic kidney disease stage: stage 2 (mild) Qualified Code(s): N18.2 - Chronic kidney disease, stage 2 (mild) (6) COPD (chronic obstructive pulmonary disease) Code(s): J44.9 - CHRONIC OBSTRUCTIVE PULMONARY DISEASE, UNSPECIFIED (7) Congestive heart failure (CHF) Code(s): I50.9 - HEART FAILURE, UNSPECIFIED (8) Diabetes mellitus Code(s): E11.9 - TYPE 2 DIABETES MELLITUS WITHOUT COMPLICATIONS Qualifiers: Diabetes mellitus type: type 2 Diabetes mellitus human resources manager insulin use: with human resources manager use Diabetes mellitus complication status: with circulatory complication Diabetes mellitus complication detail: with peripheral angiopathy with gangrene Qualified Code(s): E11.52 - Type 2 diabetes mellitus with diabetic peripheral angiopathy with gangrene (9) Hyperlipidemia Code(s): E78.5 - HYPERLIPIDEMIA, UNSPECIFIED (10) Hypertension Code(s): I10 - ESSENTIAL (PRIMARY) HYPERTENSION Qualifiers: Hypertension type: essential hypertension Qualified Code(s): I10 - Essential (primary) hypertension Assessment/Plan (1) Fracture of femoral neck, left Assessment/Plan: -found to have femoral neck fracture on CT scan -planning for surgery tomorrow -place on oxycodone for pain control Code(s): S72.002A - FRACTURE OF UNSP PART OF NECK OF LEFT FEMUR, INIT Qualifiers: Encounter type: initial encounter Fracture type: closed Qualified Code(s) : S72.002A - Fracture of unspecified part of neck of left femur, initial encounter for closed fracture (2) Fall Assessment/Plan: -fall risk precautions Code(s): W19.XXXA - UNSPECIFIED FALL, INITIAL ENCOUNTER Qualifiers: (3) Chronic respiratory failure Assessment/Plan: -stable -continue COPD treatment -continue oxygen support Code(s): J96.10 - CHRONIC RESPIRATORY FAILURE, UNSP W HYPOXIA OR HYPERCAPNIA Qualifiers: (4) CAD (coronary artery disease) Assessment/Plan: -appreciate cardiology assistance -holding plavix -continue current management Code(s): I25.10 - ATHSCL HEART DISEASE OF [place] CORONARY ARTERY W/O ANG PCTRS Qualifiers: [place] vs. transplanted heart: [place] heart Associated angina: without angina (5) CKD (chronic kidney disease) Assessment/Plan: -baseline Code(s): N18.9 - CHRONIC KIDNEY DISEASE, UNSPECIFIED Qualifiers: Chronic kidney disease stage: stage 2 (mild) Qualified Code(s): N18.2 - Chronic kidney disease, stage 2 (mild) (6) COPD (chronic obstructive pulmonary disease) Assessment/Plan: -not in exacerbation -continue current regimen Code(s): J44.9 - CHRONIC OBSTRUCTIVE PULMONARY DISEASE, UNSPECIFIED (7) Congestive heart failure (CHF) Assessment/Plan: -continue coreg, hydralazine, imdur -not in exacerbation Code(s): I50.9 - HEART FAILURE, UNSPECIFIED (8) Diabetes mellitus Assessment/Plan: -diabetic diet -FSBS and SSI Code(s): E11.9 - TYPE 2 DIABETES MELLITUS WITHOUT COMPLICATIONS Qualifiers: Diabetes mellitus type: type 2 Diabetes mellitus prison insulin use: with human resources manager use Diabetes mellitus complication status: with circulatory complication Diabetes mellitus complication detail: with peripheral angiopathy with gangrene Qualified Code(s): E11.52 - Type 2 diabetes mellitus with diabetic peripheral angiopathy with gangrene (9) Hyperlipidemia Assessment/Plan: -continue lipitor Code(s): E78.5 - HYPERLIPIDEMIA, UNSPECIFIED (10) Hypertension Assessment/Plan: -continue current regimen Code(s): I10 - ESSENTIAL (PRIMARY) HYPERTENSION Qualifiers: Hypertension type: essential hypertension Qualified Code(s): I10 - Essential (primary) hypertension
[2019-01-05 11:52] LABS: ANISOCYTOSIS 2+; MACROCYTOSIS 1+; OVALOCYTE 1+; PLATELET ESTIMATE NORMAL
--- NOTE | 2019-01-05 12:49 | PN ---
Progress Note (short form) - Note Progress Note: s: no cp sob palps dizzy o: Vital Signs Period Temp Pulse Resp BP Sys/Chandra Pulse Ox Last 24 Hr 97.8 F-98.9 F 74-79 16 138-159/65-95 94-94 nad no jvd rrr s1s2 no mrg cta bl nl eff aaox3 no le e/c/c abd nt nd pos bs no jaundice diaphoresis Current Medications Generic Name Dose Route Start Last Admin Trade Name Freq PRN Reason Stop Dose Admin Acetaminophen 650 mg 01/04/19 15:06 01/05/19 10:14 Tylenol - PO 650 mg Q4H PRN Administration FEVER Albuterol Sulfate 1 amp 01/03/19 20:00 Ventolin 0.083% Nebulizer Soln - NEB Q6H PRN SHORT OF BREATH/WHEEZING Amlodipine Besylate 5 mg 01/04/19 10:00 01/05/19 09:06 Norvasc - PO 5 mg DAILY [facility] Administration Aspirin 81 mg 01/05/19 10:00 01/05/19 10:16 Ecotrin - PO Not Given DAILY [facility] Atorvastatin Calcium 40 mg 01/03/19 22:00 01/04/19 23:16 Lipitor - PO 40 mg HS [facility] Administration Budesonide/Formoterol Fumarate 2 puff 01/03/19 22:00 01/05/19 09:09 Symbicort 80/4.5mcg - IH 2 puff BID [facility] Administration Carvedilol 6.25 mg 01/03/19 22:00 01/05/19 09:06 Coreg - PO 6.25 mg BID [facility] Administration Heparin Sodium (Porcine) 5,000 unit 01/03/19 22:00 01/05/19 09:06 Heparin - SQ 5,000 unit BID [facility] Administration Hydralazine HCl 10 mg 01/03/19 22:00 01/05/19 09:09 Apresoline - PO 10 mg BID [facility] Administration Insulin Aspart 1 vial 01/04/19 22:00 01/05/19 11:18 Novolog Vial Sliding Scale - SQ Not Given ACHS [facility] Protocol Isosorbide Mononitrate 30 mg 01/04/19 10:00 01/05/19 09:06 Imdur - PO 30 mg DAILY [facility] Administration Previcid 30 Mg 1 each 01/04/19 22:00 01/04/19 22:00 Capsule (Home Med) PO 1 each HS [facility] Administration Oxycodone HCl 10 mg 01/05/19 11:14 01/05/19 11:29 Roxicodone - PO 10 mg Q4H PRN Administration PAIN LEVEL 6-10 Pregabalin 50 mg 01/03/19 22:00 01/05/19 09:07 Lyrica - PO 50 mg BID [facility] Administration Fluticasone/Salmeterol 1 puff 01/04/19 10:00 01/05/19 09:09 Advair 100mcg/50mcg - IH 1 puff BID [facility] Administration Sodium Bicarbonate 650 mg 01/04/19 10:00 01/05/19 09:06 Sodium Bicarbonate - PO 650 mg DAILY [facility] Administration Zolpidem Tartrate 5 mg 01/03/19 22:00 01/04/19 23:17 Ambien - PO 5 mg HS PRN Administration INSOMNIA CBC, BMP 01/05/19 06:00 01/05/19 06:00 ecg: sr, 1avb, rbbb. inf q's, no sig change prior CXR: central congestion, stable compared to prior [facility] 05/15: 70-80% mRCA (ISR), 70-80% RPDA (ISR); 70-80% mLAD; 80-90% pLCX (small vessel); 90-95% OM2 (large vessel); 80-90% prox Ramus (large vessel) ...nonobstructive dz of note [id number]% ostial RCA, 50-60% eccentric lesion OM1 (large vessel); EDP 30-->25 post-nitro EF 38% (diffuse WMAs) Syntax score 20 Echo 10/29/18: mod LVE, mild global LV hypo (45-50%). RV tds. mild TR. no vegetations noted Echo 05/15: mod to sev decr LVEF; severe hypokinesis of all lindsey except basal segments. nl RV. mild MR/TR. no peric eff. Echo 01/2017: mild global HK, lvef 45-50, nl rv, nl rvsp, mild lae, mild tr a/p: 68M h/o dm, ckd (1.5-2), CVA 10/2014, CAD s/p STEMI and multiple pci's, ischemic CM with systolic chf, COPD, extensive smoking history (quit 12/2016) here s/p fall. fall, hip fx: -mechanical fall, no signs cardiac etiology -found to have hip fracture -no cardiac contraindications (intermediate risk) to planned hip surgery. Avoid excess IVFs given his CHF hx. hx CVA -dx'd lacunar infarct 2013 clinically then (slurred speech) -? acute CVA/TIA 2014, seen by neuro then--ASA added to prior plavix at that time - on aspirin and plavix for recurrent strokes, continue after surgery CAD: -2004 s/p PCI ([facility]) to 100% occl RPDA ([facility]) with patent prior RCA stents at that time, EF 50% then; -2011 s/p anterior STEMI 2011 with [place] LIBBY x 2 to mid LAD then ([facility]); residual 80% prox D1 (large vessel), 95% mD1; 70%mRCA (pre and post prior stents), 70% dCFX; (also 40% RPDA; 60% pCFX; 40% mCFX;) EF then 37% with AK of apex/AL lindsey and AK of IW; -2016 s/p NSTEMI in setting of sepsis/PNA-->[facility] with 70-80% mRCA (ISR), 70-80% RPDA (ISR); 70-80% mLAD; 80-90% pLCX (small vessel); 90-95% OM2 (large vessel); 80-90% prox Ramus (large vessel), 30-50% ostial RCA, 50-60% eccentric lesion OM1 (large vessel); -pt declined cabg twice after that, and has not followed up with cardiology in office -no signs ACS here -on ASA and plavix from before (for recurrent CVAs)--cont same -cont home BB, statin, imdur -outpt cardio followup if pt willing isch CMP/ chronic syst CHF: -mildly reduced EF on last echo -cont home coreg, imdur, hydralazine for chf regimen -h/o BRANT (creat to 2.5) with WENDY in past--stopped. 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
[2019-01-05] MEDS: VANCOMYCIN 250 MG/5 ML ORAL SOLUTION PO SCH ×2 (15:14→17:13)
[2019-01-05] MEDS: ATORVASTATIN CA 40 MG TABLET (FP) PO SCH (21:43)
[2019-01-05] MEDS: ZOLPIDEM TARTRATE 5 MG TABLET PO PRN (21:43)
[2019-01-05] MEDS: LANSOPRAZOLE 30 MG PO SCH (21:47)
[2019-01-06] MEDS: VANCOMYCIN 250 MG/5 ML ORAL SOLUTION PO SCH ×3 (00:47→18:40)
[2019-01-06] MEDS: ACETAMINOPHEN 325 MG TABLET (FP) PO PRN ×2 (00:47→14:50)
[2019-01-06] MEDS: oxyCODONE HCL 5 MG TABLET PO PRN ×3 (00:48→21:02)
[2019-01-06] MEDS: INSULIN SLIDING SCALE (NOVOLOG) 1 VIAL SQ SCH ×2 (06:11→15:54)
[2019-01-06 06:28] LABS: BASO % 0.7 % (0-2.0); EOS % 0.1 % (0-4.5); HEMATOCRIT 35.6 % (35.4-49); HEMOGLOBIN 11.5 GM/dL (11.7-16.9); LYMPH % 4.5 % (8-40); MCHC 32.4 g/dl (32.0-35.9); MEAN CELL VOLUME 101.8 fl (80-96); MEAN PLT VOLUME 8.1 fl (7.5-11.1); MONO % 3.5 % (3.8-10.2); NEUT % 91.2 % (42.8-82.8); PLATELET COUNT 315 K/MM3 (134-434); RDW 18.6 % (11.9-15.9); WHITE BLOOD COUNT 8.8 K/mm3 (4.0-10.0)
[2019-01-06 06:55] LABS: ANION GAP 10 MMOL/L (8-16); BLOOD UREA NITROGEN 9 mg/dL (7-18); CALCIUM 7.9 mg/dL (8.5-10.1); CHLORIDE 108 mmol/L (98-107); CO2 27 mmol/L (21-32); CREATININE 0.9 mg/dL (0.55-1.3); GLUCOSE,RANDOM 175 mg/dL (74-106); MAGNESIUM 1.1 mg/dL (1.8-2.4); PHOSPHOROUS 2.3 mg/dL (2.5-4.9); POTASSIUM 3.6 mmol/L (3.5-5.1); SODIUM 145 mmol/L (136-145)
[2019-01-06] MEDS: ISOSORBIDE MONONITRATE 30 MG TAB.SR.24H (FP) PO SCH ×2 (08:25→09:15)
[2019-01-06] MEDS: CARVEDILOL 6.25 MG TABLET (FP) PO SCH ×3 (08:25→21:02)
[2019-01-06] MEDS: amLODIPine BESYLATE 5 MG TABLET (FP) PO SCH ×2 (08:25→09:17)
[2019-01-06] MEDS: hydrALAZINE HCL 10 MG TABLET PO SCH ×2 (08:29→21:35)
[2019-01-06] MEDS ORDERED: fentaNYL CITRATE 250 MCG/5 ML VIAL ONE ×2 (09:01→10:21)
[2019-01-06] MEDS ORDERED: MIDAZOLAM HCL 2 MG/2 ML SINGLE DOSE VIAL ONE (09:01)
[2019-01-06] MEDS ORDERED: PROPOFOL 20 ML ONE ×4 (09:01)
[2019-01-06] MEDS ORDERED: SUCCINYLCHOLINE CHLORIDE 200 MG/10 ML VIAL ONE (09:02)
[2019-01-06] MEDS ORDERED: ROCURONIUM BROMIDE 50 MG/5 ML VIAL ONE (09:02)
[2019-01-06] MEDS ORDERED: NITROGLYCERIN 50 MG/10 ML VIAL IVPB ONE (09:03)
[2019-01-06] MEDS: FLUTICASONE/SALMETEROL 100 MCG/50 MCG DISKUS IH SCH (09:13)
[2019-01-06] MEDS: SODIUM BICARBONATE 650 MG TABLET PO SCH (09:14)
[2019-01-06] MEDS: HEPARIN NA (PORCINE) 5,000 UNITS/ML 1ML VIAL SQ SCH (09:14)
[2019-01-06] MEDS: BUDESONIDE/FORMETEROL FUMARATE 80/4.5 mcg INHALER IH SCH (09:14)
[2019-01-06] MEDS: PREGABALIN 25 MG CAPSULE PO SCH (09:15)
[2019-01-06] MEDS ORDERED: FAMOTIDINE 20 MG/50 ML IVPB 20 MG/50 ML MG IVPB ONE (09:22)
--- NOTE | 2019-01-06 09:33 | PN ---
Progress Note (short form) - Note Progress Note: Mr Scott is a 68 y old male with multiple co morbidities. Sever CAD, X5 stents on plavix, up to 48 hrs ago. EF:40%. Ichsmic cardiomyopathy, severe COPD with O2 at home. DM with end stage symptoms. Pat has been refusing further medical or surgical intervention regarding his heart. Risks and benefits d/w pat and his and son. Explained that we are left with GA option, with highest mortality and morbidity. Risk of on the OR table. Can not choose spinal due to use of plavix. Risk of delaying surgery and immobilization is also high for morbidity and mortality for this patient. Decision made with surgeon and family to proceed today.
[2019-01-06] MEDS ORDERED: ceFAZolin SODIUM 1 GM VIAL IVPB ONE (10:00)
[2019-01-06] MEDS ORDERED: LIDOCAINE HCL/PF 2% SDV 5ML VIAL ONE ×2 (10:07→11:07)
[2019-01-06] MEDS ORDERED: DESFLURANE GAS 240 ML BOTTLE IH ONE (10:29)
[2019-01-06] MEDS ORDERED: METOPROLOL TARTRATE 5 MG/5 ML VIAL ONE (10:42)
[2019-01-06 10:47] LABS: ANISOCYTOSIS 0; MACROCYTOSIS 0; PLATELET ESTIMATE NORMAL
[2019-01-06] MEDS ORDERED: ESMOLOL HCL 100,000 MCG/10 ML VIAL ONE (11:10)
[2019-01-06] MEDS ORDERED: ONDANSETRON 4 MG/2 ML VIAL IVPUSH PRN (11:44)
[2019-01-06] MEDS ORDERED: ACETAMINOPHEN 1000 MG/100 ML VIAL (NON FORMULARY) IVPB ONE (11:48)
[2019-01-06] MEDS ORDERED: ACETAMINOPHEN INJECTION 100 ML IVPB ONE (12:03)
--- NOTE | 2019-01-06 12:22 | PN ---
Progress Note (short form) - Note Progress Note: s: s/p hip surgery, went well, no cp sob palps dizzy o: Vital Signs Period Temp Pulse Resp BP Sys/Chandra Pulse Ox Last 24 Hr 97.8 F-100.7 F 65-88 18-20 154-176/68-89 93-94 nad no jvd rrr s1s2 no mrg cta bl nl eff aaox3 no le e/c/c abd nt nd pos bs no jaundice diaphoresis Current Medications Generic Name Dose Route Start Last Admin Trade Name Freq PRN Reason Stop Dose Admin Cefazolin Sodium/Dextrose 2 gm 01/06/19 18:00 Ancef 2 Gm Premixed Ivpb - IVPB 01/07/19 17:59 Q8H-IV RADHA Sodium Chloride 1,000 mls @ 125 mls/hr 01/06/19 11:45 Normal Saline - IV ASDIR RADHA Ondansetron HCl 4 mg 01/06/19 11:44 Zofran Injection IVPUSH Q6H PRN NAUSEA AND/OR VOMITING CBC, BMP 01/06/19 05:15 01/06/19 05:15 ecg: sr, 1avb, rbbb. inf q's, no sig change prior CXR: central congestion, stable compared to prior [facility] 05/15: 70-80% mRCA (ISR), 70-80% RPDA (ISR); 70-80% mLAD; 80-90% pLCX (small vessel); 90-95% OM2 (large vessel); 80-90% prox Ramus (large vessel) ...nonobstructive dz of note [id number]% ostial RCA, 50-60% eccentric lesion OM1 (large vessel); EDP 30-->25 post-nitro EF 38% (diffuse WMAs) Syntax score 20 Echo 10/29/18: mod LVE, mild global LV hypo (45-50%). RV tds. mild TR. no vegetations noted Echo 05/15: mod to sev decr LVEF; severe hypokinesis of all [place]ind[place] except basal segments. nl RV. mild MR/TR. no peric eff. Echo 01/2017: mild global HK, lvef 45-50, nl rv, nl rvsp, mild lae, mild tr a/p: 68M h/o dm, ckd (1.5-2), CVA 10/2014, CAD s/p STEMI and multiple pci's, ischemic CM with systolic chf, COPD, extensive smoking history (quit 12/2016) here s/p fall. fall, hip fx: -mechanical fall, no signs cardiac etiology -found to have hip fracture, s/p surgery today hx CVA -dx'd lacunar infarct 2013 clinically then (slurred speech) -? acute CVA/TIA 2014, seen by neuro then--ASA added to prior plavix at that time - on aspirin and plavix for recurrent strokes, continue after surgery CAD: -2004 s/p PCI ([facility]) to 100% occl RPDA ([facility]) with patent prior RCA stents at that time, EF 50% then; -2011 s/p anterior STEMI 2011 with [place] LIBBY x 2 to mid LAD then ([facility]); residual 80% prox D1 (large vessel), 95% mD1; 70%mRCA (pre and post prior stents), 70% dCFX; (also 40% RPDA; 60% pCFX; 40% mCFX;) EF then 37% with AK of apex/AL lindsey and AK of IW; -2016 s/p NSTEMI in setting of sepsis/PNA-->[facility] with 70-80% mRCA (ISR), 70-80% RPDA (ISR); 70-80% mLAD; 80-90% pLCX (small vessel); 90-95% OM2 (large vessel); 80-90% prox Ramus (large vessel), 30-50% ostial RCA, 50-60% eccentric lesion OM1 (large vessel); -pt declined cabg twice after that, and has not followed up with cardiology in office -no signs ACS here -on ASA and plavix from before (for recurrent CVAs)--cont same -cont home BB, statin, imdur -outpt cardio followup if pt willing isch CMP/ chronic syst CHF: -mildly reduced EF on last echo -cont home coreg, imdur, hydralazine for chf regimen -h/o BRANT (creat to 2.5) with WENDY in past--stopped. 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
[2019-01-06] MEDS: SODIUM CHLORIDE 1,000 ML IV SCH (12:25)
--- NOTE | 2019-01-06 12:31 | OP ---
DATE OF OPERATION: 01/06/2019 PREOPERATIVE DIAGNOSIS: Left valgus impacted femoral neck fracture. POSTOPERATIVE DIAGNOSIS: Left valgus impacted femoral neck fracture. PROCEDURE PERFORMED: Operative fixation of left valgus impacted femoral neck fracture with 3 cannulated screws. IMPLANTS: three 6.5-mm [place] cannulated screws, 100 mm, 95 mm, and 95 mm. SURGEON: Nic Finch MD SILVERWARE ETCHER: PENNY Mckee ANESTHESIA: General. INDICATION: The patient is a 68-year-old male with significant medical co-morbidities and preoperative anticoagulation with Plavix. He sustained a fall. He has a valgus impacted femoral neck fracture and severe hip pain. He is ambulatory. He is indicated for operative fixation. Risks, benefits and alternatives of the surgery were discussed in detail with the patient and the family. Decision was made to perform the surgery despite him being on chronic Plavix therapy. There is increased bleeding risk, however, there is much higher risk, given his medical co-morbidities with medical recumbency for the 1 week that is required for the weaning off of the Plavix. They also understand that with this type of fixation, there is a significant risk of nonunion, although in most cases, this will heal with this type of fixation. If there is a nonunion, then they would require conversion to hemiarthroplasty. All questions were answered. Informed consent was obtained. DESCRIPTION: The patient was brought in to the operating room by stretcher and transferred into the fracture table. General endotracheal anesthesia was administered by the anesthesiologist. The left lower extremity was then placed in gentle internal rotation and the right lower extremity placed in flexion and external rotation. Fluoroscopic C-arm images show excellent reduction. The hip was then prepped and draped in the usual sterile fashion. Prophylactic IV antibiotics were administered and a timeout was performed. A small incision was made in the lateral thigh at the appropriate level and guidewires were inserted for the insertion of the screws. The drills were then passed and the appropriate length screws were inserted. Of note, the patient did have a very small anatomy to put 3 screws in. The superior screw had excellent purchases but ended up slightly proud on comparison to the other 2 screws; however, this was felt to be acceptable with excellent direction and filling of the fracture site across the neck. The wound was then irrigated. The deep dermal tissue was approximated with 2-0 Vicryl suture. The skin was closed with sadia. A sterile dressing was applied. VANAD Mckee, was necessary throughout the case for proper assistance and positioning and during the surgery for the cannulated screws. This could not have been done without a skilled surgical elastic knitter hand frame. Jl [id number]
[2019-01-06] MEDS ORDERED: ACETAMINOPHEN 325 MG TABLET (FP) PO PRN (13:27)
[2019-01-06] MEDS ORDERED: oxyCODONE HCL 5 MG TABLET PO PRN (13:27)
[2019-01-06] MEDS ORDERED: MAGNESIUM SULF 50% (8.12 MEQ/2 ML-1 GM VIAL) IVPB ONE (13:44)
[2019-01-06] MEDS ORDERED: ZOLPIDEM TARTRATE 5 MG TABLET PO PRN (15:19)
--- NOTE | 2019-01-06 15:22 | PN ---
Progress Note, Physician Chief Complaint: Mr Scott complains of pain and insomnia. No cp, sob, n/v. - Current Medication List Current Medications: Active Medications Acetaminophen (Tylenol -) 325 mg PO Q4H PRN PRN Reason: PAIN LEVEL 1-5 Stop: 01/09/19 13:26 Acetaminophen (Tylenol -) 650 mg PO Q4H PRN PRN Reason: PAIN LEVEL 6-10 Stop: 01/09/19 13:27 Last Admin: 01/06/19 14:50 Dose: 650 mg Amlodipine Besylate (Norvasc -) 5 mg PO DAILY [facility] Atorvastatin Calcium (Lipitor -) 40 mg PO HS [facility] Budesonide/Formoterol Fumarate (Symbicort 160/4.5mcg -) 2 puff IH BID RADHA Carvedilol (Coreg -) 6.25 mg PO BID [facility] Cefazolin Sodium/Dextrose (Ancef 2 Gm Premixed Ivpb -) 2 gm IVPB Q8H-IV RADHA Stop: 01/07/19 17:59 Furosemide (Lasix -) 80 mg PO DAILY [facility] Hydralazine HCl (Apresoline -) 10 mg PO BID [facility] Sodium Chloride (Normal Saline -) 1,000 mls @ 125 mls/hr IV ASDIR RADHA Last Admin: 01/06/19 12:25 Dose: 0 mls Isosorbide Mononitrate (Imdur -) 30 mg PO DAILY [facility] Ondansetron HCl (Zofran Injection) 4 mg IVPUSH Q6H PRN PRN Reason: NAUSEA AND/OR VOMITING Oxycodone HCl (Roxicodone -) 5 mg PO Q4H PRN PRN Reason: PAIN LEVEL 1-5 Oxycodone HCl (Roxicodone -) 10 mg PO Q4H PRN PRN Reason: PAIN LEVEL 6-10 Last Admin: 01/06/19 14:51 Dose: 10 mg Pregabalin (Lyrica -) 50 mg PO BID [facility] Sodium Bicarbonate (Sodium Bicarbonate -) 650 mg PO DAILY [facility] Zolpidem Tartrate (Ambien -) 10 mg PO HS PRN PRN Reason: INSOMNIA - Objective Vital Signs: Vital Signs Temperature 37.2 C 01/06/19 12:25 Pulse Rate 79 01/06/19 12:25 Respiratory Rate 18 01/06/19 12:25 Blood Pressure 152/82 01/06/19 12:25 O2 Sat by Pulse Oximetry (%) 95 01/06/19 12:25 Constitutional: Yes: Well Nourished, No Distress, Calm Cardiovascular: Yes: Regular Rate and Rhythm. No: Gallop, Murmur, Rub Respiratory: Yes: Regular, CTA Bilaterally. No: Rales, Rhonchi, Wheezes Gastrointestinal: Yes: Normal Bowel Sounds, Soft. No: Distention, Tenderness Extremities: Yes: WNL Edema: No Labs: CBC, BMP 01/06/19 05:15 01/06/19 05:15 INR, PTT INR 1.03 (0.83-1.09) 01/04/19 05:40 Problem List - Problems (1) Fracture of femoral neck, left Code(s): S72.002A - FRACTURE OF UNSP PART OF NECK OF LEFT FEMUR, INIT Qualifiers: Encounter type: initial encounter Fracture type: closed Qualified Code(s) : S72.002A - Fracture of unspecified part of neck of left femur, initial encounter for closed fracture (2) Fall Code(s): W19.XXXA - UNSPECIFIED FALL, INITIAL ENCOUNTER Qualifiers: (3) Chronic respiratory failure Code(s): J96.10 - CHRONIC RESPIRATORY FAILURE, UNSP W HYPOXIA OR HYPERCAPNIA Qualifiers: (4) CAD (coronary artery disease) Code(s): I25.10 - ATHSCL HEART DISEASE OF [place] CORONARY ARTERY W/O ANG PCTRS Qualifiers: [place] vs. transplanted heart: [place] heart Associated angina: without angina (5) CKD (chronic kidney disease) Code(s): N18.9 - CHRONIC KIDNEY DISEASE, UNSPECIFIED Qualifiers: Chronic kidney disease stage: stage 2 (mild) Qualified Code(s): N18.2 - Chronic kidney disease, stage 2 (mild) (6) COPD (chronic obstructive pulmonary disease) Code(s): J44.9 - CHRONIC OBSTRUCTIVE PULMONARY DISEASE, UNSPECIFIED (7) Congestive heart failure (CHF) Code(s): I50.9 - HEART FAILURE, UNSPECIFIED (8) Diabetes mellitus Code(s): E11.9 - TYPE 2 DIABETES MELLITUS WITHOUT COMPLICATIONS Qualifiers: Diabetes mellitus type: type 2 Diabetes mellitus intermediate 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 insulin use: with prison use Diabetes mellitus complication status: with circulatory complication Diabetes mellitus complication detail: with peripheral angiopathy with gangrene Qualified Code(s): E11.52 - Type 2 diabetes mellitus with diabetic peripheral angiopathy with gangrene (9) Hyperlipidemia Code(s): E78.5 - HYPERLIPIDEMIA, UNSPECIFIED (10) Hypertension Code(s): I10 - ESSENTIAL (PRIMARY) HYPERTENSION Qualifiers: Hypertension type: essential hypertension Qualified Code(s): I10 - Essential (primary) hypertension Assessment/Plan (1) Fracture of femoral neck, left Assessment/Plan: -s/p surgery -PT consult -oxycodone for pain control Code(s): S72.002A - FRACTURE OF UNSP PART OF NECK OF LEFT FEMUR, INIT Qualifiers: Encounter type: initial encounter Fracture type: closed Qualified Code(s) : S72.002A - Fracture of unspecified part of neck of left femur, initial encounter for closed fracture (2) Fall Assessment/Plan: -fall risk precautions Code(s): W19.XXXA - UNSPECIFIED FALL, INITIAL ENCOUNTER Qualifiers: (3) Chronic respiratory failure Assessment/Plan: -stable -continue COPD treatment -continue oxygen support Code(s): J96.10 - CHRONIC RESPIRATORY FAILURE, UNSP W HYPOXIA OR HYPERCAPNIA Qualifiers: (4) CAD (coronary artery disease) Assessment/Plan: -appreciate cardiology assistance -restart plavix when safe from ortho standpoint Code(s): I25.10 - ATHSCL HEART DISEASE OF [place] CORONARY ARTERY W/O ANG PCTRS Qualifiers: [place] vs. transplanted heart: [place] heart Associated angina: without angina (5) CKD (chronic kidney disease) Assessment/Plan: -baseline Code(s): N18.9 - CHRONIC KIDNEY DISEASE, UNSPECIFIED Qualifiers: Chronic kidney disease stage: stage 2 (mild) Qualified Code(s): N18.2 - Chronic kidney disease, stage 2 (mild) (6) COPD (chronic obstructive pulmonary disease) Assessment/Plan: -not in exacerbation -continue current regimen Code(s): J44.9 - CHRONIC OBSTRUCTIVE PULMONARY DISEASE, UNSPECIFIED (7) Congestive heart failure (CHF) Assessment/Plan: -continue coreg, hydralazine, imdur -not in exacerbation Code(s): I50.9 - HEART FAILURE, UNSPECIFIED (8) Diabetes mellitus Assessment/Plan: -diabetic diet -FSBS and SSI Code(s): E11.9 - TYPE 2 DIABETES MELLITUS WITHOUT COMPLICATIONS Qualifiers: Diabetes mellitus type: type 2 Diabetes mellitus intermediate 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 insulin use: with intermediate 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 use Diabetes mellitus complication status: with circulatory complication Diabetes mellitus complication detail: with peripheral angiopathy with gangrene Qualified Code(s): E11.52 - Type 2 diabetes mellitus with diabetic peripheral angiopathy with gangrene (9) Hyperlipidemia Assessment/Plan: -continue lipitor Code(s): E78.5 - HYPERLIPIDEMIA, UNSPECIFIED (10) Hypertension Assessment/Plan: -continue current regimen Code(s): I10 - ESSENTIAL (PRIMARY) HYPERTENSION Qualifiers: Hypertension type: essential hypertension Qualified Code(s): I10 - Essential (primary) hypertension
[2019-01-06] MEDS: ceFAZolin 2 GRAM PREMIX BAG IVPB SCH (18:37)
[2019-01-06] MEDS: PREGABALIN 50 MG CAPSULE PO SCH (21:01)
[2019-01-06] MEDS ORDERED: BUDESONIDE/FORMETEROL FUMARATE 160/4.5 mcg INHALER IH SCH (22:00)
[2019-01-06] MEDS ORDERED: ATORVASTATIN CA 40 MG TABLET (FP) PO SCH (22:00)
[2019-01-07] MEDS: oxyCODONE HCL 5 MG TABLET PO PRN ×3 (02:07→18:39)
[2019-01-07] MEDS: ceFAZolin 2 GRAM PREMIX BAG IVPB SCH ×3 (02:07→18:39)
[2019-01-07] MEDS: VANCOMYCIN 250 MG/5 ML ORAL SOLUTION PO SCH ×3 (02:09→12:33)
[2019-01-07] MEDS: SODIUM CHLORIDE 1,000 ML IV SCH ×2 (06:06→14:55)
[2019-01-07] MEDS: INSULIN SLIDING SCALE (NOVOLOG) 1 VIAL SQ SCH ×4 (06:09→22:07)
[2019-01-07 06:10] LABS: BASO % 0.6 % (0-2.0); EOS % 0.2 % (0-4.5); HEMATOCRIT 31.5 % (35.4-49); HEMOGLOBIN 10.2 GM/dL (11.7-16.9); LYMPH % 6.2 % (8-40); MCH 33.1 pg (25.7-33.7); MCHC 32.4 g/dl (32.0-35.9); MEAN CELL VOLUME 102.2 fl (80-96); MEAN PLT VOLUME 7.9 fl (7.5-11.1); MONO % 11.7 % (3.8-10.2); NEUT % 81.3 % (42.8-82.8); PLATELET COUNT 285 K/MM3 (134-434); RBC 3.08 M/mm3 (4.00-5.60); RDW 18.3 % (11.9-15.9); WHITE BLOOD COUNT 11.3 K/mm3 (4.0-10.0)
[2019-01-07 06:47] LABS: ANION GAP 9 MMOL/L (8-16); BLOOD UREA NITROGEN 7 mg/dL (7-18); CALCIUM 7.1 mg/dL (8.5-10.1); CHLORIDE 110 mmol/L (98-107); CO2 27 mmol/L (21-32); GLUCOSE,RANDOM 155 mg/dL (74-106); MAGNESIUM 1.5 mg/dL (1.8-2.4); PHOSPHOROUS 2.1 mg/dL (2.5-4.9); POTASSIUM 3.4 mmol/L (3.5-5.1); SODIUM 146 mmol/L (136-145)
[2019-01-07] MEDS ORDERED: MAGNESIUM OXIDE 400 MG TABLET (FP) PO ONE (08:06)
[2019-01-07] MEDS ORDERED: NAPH,MB-DB/K PH,MBDB POWDER PACKET PO ONE (08:06)
--- NOTE | 2019-01-07 08:12 | PN ---
Physical Exam: SUBJECTIVE: Patient seen and examined 68 yo M with a pmhx of CVA, peripheral neuropathy, IDDM, CHF, HTN, AK (s/p 5 stents), HLD, COPD, GERD, CKD, presented to the ED after a mechanical fall and was found to have a L Femoral fracture. Plavix held for 2 days. Ortho performed pinning 01/06. Pt reported left lower extremity pain today, otherwise had no complaints. OBJECTIVE: Vital Signs Period Temp Pulse Resp BP Sys/Chandra Pulse Ox Last 24 Hr 98.1 F-100.2 F 60-97 17-93 130-166/66-98 95-98 Intake & Output 01/04/19 01/05/19 01/06/19 01/07/19 22:59 22:59 23:59 23:59 Intake Total 1064 Output Total 500 Balance 564 Weight Vital Signs Temperature 98.3 F 01/07/19 04:00 Pulse Rate 95 H 01/07/19 06:00 Respiratory Rate 23 H 01/07/19 06:00 Blood Pressure 148/70 01/07/19 06:00 O2 Sat by Pulse Oximetry (%) 97 01/06/19 20:31 GENERAL: The patient is awake, alert, and fully oriented, in no acute distress. HEAD: Normal with no signs of trauma. EYES: PERRL, extraocular movements intact, sclera anicteric, conjunctiva clear. No ptosis. ENT: Ears normal, nares patent, oropharynx clear without exudates, moist mucous membranes. NECK: Trachea midline, full range of motion, supple. LUNGS: Breath sounds equal, clear to auscultation bilaterally, no wheezes, no crackles, no accessory muscle use. HEART: Regular rate and rhythm, S1, S2 without murmur, rub or gallop. ABDOMEN: Soft, nontender, nondistended, normoactive bowel sounds, no guarding, no rebound, no hepatosplenomegaly, no masses. EXTREMITIES: 2+ pulses, warm, well-perfused, no edema. <2 second capillary refill LLE toes. able to move toes. decreased ROM of LLE secondary to pain. NEUROLOGICAL: Cranial nerves II through XII grossly intact. Normal speech, gait not observed. PSYCH: Normal mood, normal affect. SKIN: Warm, dry, normal turgor, no rashes or lesions noted Laboratory Results - last 24 hr 01/06/19 01/06/19 01/06/19 05:15 09:05 13:17 WBC RBC Hgb Hct MCV MCH MCHC RDW Plt Count MPV Absolute Neuts (auto) Neutrophils % Neutrophils % (Manual) 83.5 H Band Neutrophils % 1.0 Lymphocytes % Lymphocytes % (Manual) 5.2 L D Monocytes % Monocytes % (Manual) 4 Eosinophils % Eosinophils % (Manual) 0.0 D Basophils % Basophils % (Manual) 0.0 Myelocytes % (Man) 4 H D Promyelocytes % (Man) 0 Blast Cells % (Manual) 0 Nucleated RBC % 0 Metamyelocytes 2 D Hypochromia 0 Platelet Estimate Normal Polychromasia 0 Poikilocytosis 0 Anisocytosis 0 Microcytosis 0 Macrocytosis 0 Sodium Potassium Chloride Carbon Dioxide Anion Gap BUN Creatinine Creat Clearance w eGFR POC Glucometer 158 146 Random Glucose Calcium Phosphorus Magnesium 01/06/19 01/06/19 01/07/19 17:06 20:54 05:28 WBC RBC Hgb Hct MCV MCH MCHC RDW Plt Count MPV Absolute Neuts (auto) Neutrophils % Neutrophils % (Manual) Band Neutrophils % Lymphocytes % Lymphocytes % (Manual) Monocytes % Monocytes % (Manual) Eosinophils % Eosinophils % (Manual) Basophils % Basophils % (Manual) Myelocytes % (Man) Promyelocytes % (Man) Blast Cells % (Manual) Nucleated RBC % Metamyelocytes Hypochromia Platelet Estimate Polychromasia Poikilocytosis Anisocytosis Microcytosis Macrocytosis Sodium Potassium Chloride Carbon Dioxide Anion Gap BUN Creatinine Creat Clearance w eGFR POC Glucometer 163 164 160 Random Glucose Calcium Phosphorus Magnesium 01/07/19 01/07/19 05:30 05:30 WBC 11.3 H RBC 3.08 L Hgb 10.2 L Hct 31.5 L MCV 102.2 H MCH 33.1 MCHC 32.4 RDW 18.3 H Plt Count 285 MPV 7.9 Absolute Neuts (auto) 9.2 H Neutrophils % 81.3 Neutrophils % (Manual) Band Neutrophils % Lymphocytes % 6.2 L D Lymphocytes % (Manual) Monocytes % 11.7 H D Monocytes % (Manual) Eosinophils % 0.2 D Eosinophils % (Manual) Basophils % 0.6 Basophils % (Manual) Myelocytes % (Man) Promyelocytes % (Man) Blast Cells % (Manual) Nucleated RBC % 0 Metamyelocytes Hypochromia Platelet Estimate Polychromasia Poikilocytosis Anisocytosis Microcytosis Macrocytosis Sodium 146 H Potassium 3.4 L Chloride 110 H Carbon Dioxide 27 Anion Gap 9 BUN 7 Creatinine 1.0 Creat Clearance w eGFR > 60 POC Glucometer Random Glucose 155 H Calcium 7.1 L Phosphorus 2.1 L Magnesium 1.5 L Active Medications Generic Name Dose Route Start Last Admin Trade Name Freq PRN Reason Stop Dose Admin Acetaminophen 325 mg 01/06/19 13:27 Tylenol - PO 01/09/19 13:26 Q4H PRN PAIN LEVEL 1-5 Acetaminophen 650 mg 01/06/19 13:28 01/06/19 14:50 Tylenol - PO 01/09/19 13:27 650 mg Q4H PRN Administration PAIN LEVEL 6-10 Amlodipine Besylate 5 mg 01/07/19 10:00 Norvasc - PO DAILY [facility] Atorvastatin Calcium 40 mg 01/06/19 22:00 01/06/19 21:02 Lipitor - PO 40 mg HS RADHA Administration Budesonide/Formoterol Fumarate 2 puff 01/06/19 22:00 01/06/19 21:35 Symbicort 160/4.5mcg - IH Not Given BID RAD[facility] Carvedilol 6.25 mg 01/06/19 22:00 01/06/19 21:02 Coreg - PO 6.25 mg BID RADHA Administration Cefazolin Sodium/Dextrose 2 gm 01/06/19 18:00 01/07/19 02:07 Ancef 2 Gm Premixed Ivpb - IVPB 01/07/19 17:59 2 gm Q8H-IV RADHA Administration Furosemide 80 mg 01/07/19 10:00 Lasix - PO DAILY [facility] Hydralazine HCl 10 mg 01/06/19 22:00 01/06/19 21:35 Apresoline - PO 10 mg BID RADHA Administration Sodium Chloride 1,000 mls @ 125 mls/hr 01/06/19 11:45 01/07/19 06:06 Normal Saline - IV 125 mls/hr ASDIR RADHA Administration Insulin Aspart 1 vial 01/07/19 07:00 01/07/19 06:09 Novolog Vial Sliding Scale - SQ 2 units ACHS RADHA Administration Protocol Isosorbide Mononitrate 30 mg 01/07/19 10:00 Imdur - PO DAILY [facility] Ondansetron HCl 4 mg 01/06/19 11:44 Zofran Injection IVPUSH Q6H PRN NAUSEA AND/OR VOMITING Oxycodone HCl 5 mg 01/06/19 13:27 01/07/19 05:40 Roxicodone - PO 5 mg Q4H PRN Administration PAIN LEVEL 1-5 Oxycodone HCl 10 mg 01/06/19 13:28 01/07/19 02:07 Roxicodone - PO 10 mg Q4H PRN Administration PAIN LEVEL 6-10 Pregabalin 50 mg 01/06/19 22:00 01/06/19 21:01 Lyrica - PO 50 mg BID RAD[facility] Administration Sodium Bicarbonate 650 mg 01/07/19 10:00 Sodium Bicarbonate - PO DAILY [facility] Vancomycin HCl 125 mg 01/06/19 18:00 01/07/19 05:39 Vancomycin Oral Solution PO 125 mg Q6HPO RADHA Administration Zolpidem Tartrate 5 mg 01/06/19 15:19 01/06/19 21:02 Ambien - PO 5 mg HS PRN Administration INSOMNIA ASSESSMENT/PLAN: 68 yo M with a pmhx of CVA, peripheral neuropathy, IDDM, CHF, HTN, [place] (s/p 5 stents), HLD, COPD, GERD, CKD, presented to the ED after a mechanical fall and was found to have a L Femoral fracture. Plavix held for 2 days. Ortho performed pinning 01/06. Pt reported left lower extremity pain today , otherwise had no complaints. Pt eating in bed, unable to ambulate secondary to pain. #L Femoral fracture s/p mechanical fall -CT L Hip: Impacted fracture of the L femoral neck with minimal displacement -Ortho consulted: Dr. Wilkinson -Cardio consulted: Dr. Moore -Incentive spirometer -Pain control - acetaminophen PO, Oxycodone PO -Increase pain control - add morphine 4 mg IV PRN for pain 7-10 - Zofran PRN -Cefazolin post op antibiotics #HTN/CAD -cont. home meds -restarted ASA and plavix today -Coreg 6.25 BID -Hydralazine 10mg BID -Isosorbide mono 30mg -norvasc 5mg -Atorvastatin 40 mg PO HS #Asymptomatic UTI -Trace LE, 17 WBC -no tx at this time #Chronic Neck pain -cont. Lyrica 50mg BID #CHF -cont. Lasix 80 mg daily -Echo 10/16: EF 45-50% #CKD -at baseline - Cr 1.0 01/07/19 #COPD -not in acute exacerbation -O2 supplementation to keep O2 sat above 90%. uses 3L of o2 in home -continue neb and symbicort #DIABETES - Insulin aspart sliding scale #FEN -No iv fluids -monitor -diabetic diet #DVT -hep sq #Electrolyte abnormalities - Phos 2.1 01/07/19 - 2 packs Phos ordered - Mag 1.5 01/07/19 - Mag 800 mg PO ordered - Calcium 7.1, corrected 8.1 01/07/19 - Calcium Carbonate 650 mg PO ordered #Suspected Cdiff - Vancomycin DCed today #DISPO - Tele Visit type - Emergency Visit Emergency Visit: Yes ED Registration Date: 01/03/19 Care time: The patient presented to the Emergency Department on the above date and was hospitalized for further evaluation of their emergent condition. - New Patient This patient is new to me today: Yes Date on this admission: 01/07/19 - Critical Care Critical Care patient: Yes Total Critical Care Time (in minutes): 35 Critical Care Statement: The care of this patient involved high complexity decision making to prevent further life threatening deterioration of the patient 's condition and/or to evaluate & treat vital organ system(s) failure or risk of failure. - Discharge Referral Referred to [facility] Med P.[facility].: No
[2019-01-07 08:20] LABS: ALBUMIN 2.3 g/dl (3.4-5.0)
[2019-01-07] MEDS: ACETAMINOPHEN 325 MG TABLET (FP) PO PRN (08:24)
[2019-01-07 08:46] LABS: ANISOCYTOSIS 0; MACROCYTOSIS 0; PLATELET ESTIMATE NORMAL
--- NOTE | 2019-01-07 09:23 | PN ---
Progress Note (short form) - Note Progress Note: Anesthesiology Post-op 68 y.o. man POD#1 s/p left hip IM nail under GA. Pt. is resting comfortably in ICU with stable VS. No acute issues, pain is well- managed. No apparent anesthesia-related issues. 68 y.o. man with stable post-operative course. Continue management as per primary team.
[2019-01-07] MEDS ORDERED: SODIUM BICARBONATE 650 MG TABLET PO SCH (10:00)
[2019-01-07] MEDS ORDERED: amLODIPine BESYLATE 5 MG TABLET (FP) PO SCH (10:00)
[2019-01-07] MEDS ORDERED: FUROSEMIDE 40 MG TABLET (FP) PO SCH (10:00)
[2019-01-07] MEDS ORDERED: ISOSORBIDE MONONITRATE 30 MG TAB.SR.24H (FP) PO SCH (10:00)
[2019-01-07] MEDS: POTASSIUM CHLORIDE ORAL LIQUID 20 MEQ/15 ML PO ONE ×2 (10:05→10:35)
[2019-01-07] MEDS: PREGABALIN 50 MG CAPSULE PO SCH ×2 (10:06→22:01)
[2019-01-07] MEDS: CARVEDILOL 6.25 MG TABLET (FP) PO SCH ×2 (10:09→22:00)
[2019-01-07] MEDS: hydrALAZINE HCL 10 MG TABLET PO SCH ×2 (10:10→22:00)
[2019-01-07] MEDS ORDERED: POTASSIUM CHLORIDE TABS 20 MEQ TABLET.ER (FP) PO ONE (10:12)
--- NOTE | 2019-01-07 10:12 | PN ---
Progress Note, Physician Chief Complaint: Mr Scott continues to complain of pain and insomnia. Denies cp, sob, n/v. - Current Medication List Current Medications: Active Medications Acetaminophen (Tylenol -) 325 mg PO Q4H PRN PRN Reason: PAIN LEVEL 1-5 Stop: 01/09/19 13:26 Acetaminophen (Tylenol -) 650 mg PO Q4H PRN PRN Reason: PAIN LEVEL 6-10 Stop: 01/09/19 13:27 Last Admin: 01/07/19 08:24 Dose: 650 mg Amlodipine Besylate (Norvasc -) 5 mg PO DAILY [facility] Atorvastatin Calcium (Lipitor -) 40 mg PO HS [facility] Last Admin: 01/06/19 21:02 Dose: 40 mg Budesonide/Formoterol Fumarate (Symbicort 160/4.5mcg -) 2 puff IH BID [facility] Last Admin: 01/06/19 21:35 Dose: Not Given Carvedilol (Coreg -) 6.25 mg PO BID [facility] Last Admin: 01/06/19 21:02 Dose: 6.25 mg Cefazolin Sodium/Dextrose (Ancef 2 Gm Premixed Ivpb -) 2 gm IVPB Q8H-IV [facility] Stop: 01/07/19 17:59 Last Admin: 01/07/19 02:07 Dose: 2 gm Furosemide (Lasix -) 80 mg PO DAILY [facility] Last Admin: 01/07/19 10:05 Dose: 80 mg Hydralazine HCl (Apresoline -) 10 mg PO BID [facility] Last Admin: 01/06/19 21:35 Dose: 10 mg Sodium Chloride (Normal Saline -) 1,000 mls @ 125 mls/hr IV ASDIR [facility] Last Admin: 01/07/19 06:06 Dose: 125 mls/hr Insulin Aspart (Novolog Vial Sliding Scale -) 1 vial SQ ACHS [facility]; Protocol Last Admin: 01/07/19 06:09 Dose: 2 units Isosorbide Mononitrate (Imdur -) 30 mg PO DAILY [facility] Ondansetron HCl (Zofran Injection) 4 mg IVPUSH Q6H PRN PRN Reason: NAUSEA AND/OR VOMITING Oxycodone HCl (Roxicodone -) 5 mg PO Q4H PRN PRN Reason: PAIN LEVEL 1-5 Last Admin: 01/07/19 05:40 Dose: 5 mg Oxycodone HCl (Roxicodone -) 10 mg PO Q4H PRN PRN Reason: PAIN LEVEL 6-10 Last Admin: 01/07/19 02:07 Dose: 10 mg Pregabalin (Lyrica -) 50 mg PO BID [facility] Last Admin: 01/06/19 21:01 Dose: 50 mg Sodium Bicarbonate (Sodium Bicarbonate -) 650 mg PO DAILY [facility] Last Admin: 01/07/19 10:05 Dose: 650 mg Vancomycin HCl (Vancomycin Oral Solution) 125 mg PO Q6HPO [facility] Last Admin: 01/07/19 05:39 Dose: 125 mg Zolpidem Tartrate (Ambien -) 5 mg PO HS PRN PRN Reason: INSOMNIA Last Admin: 01/06/19 21:02 Dose: 5 mg - Objective Vital Signs: Vital Signs Temperature 36.8 C 01/07/19 04:00 Pulse Rate 95 H 01/07/19 06:00 Respiratory Rate 23 H 01/07/19 08:27 Blood Pressure 148/70 01/07/19 06:00 O2 Sat by Pulse Oximetry (%) 97 01/07/19 08:34 Constitutional: Yes: Well Nourished, No Distress, Calm Cardiovascular: Yes: Regular Rate and Rhythm. No: Gallop, Murmur, Rub Respiratory: Yes: Regular, CTA Bilaterally. No: Rales, Rhonchi, Wheezes Gastrointestinal: Yes: Normal Bowel Sounds, Soft. No: Distention, Tenderness Extremities: Yes: WNL Edema: No Labs: CBC, BMP 01/07/19 05:30 01/07/19 05:30 INR, PTT INR 1.03 (0.83-1.09) 01/04/19 05:40 Problem List - Problems (1) Fracture of femoral neck, left Code(s): S72.002A - FRACTURE OF UNSP PART OF NECK OF LEFT FEMUR, INIT Qualifiers: Encounter type: initial encounter Fracture type: closed Qualified Code(s) : S72.002A - Fracture of unspecified part of neck of left femur, initial encounter for closed fracture (2) Fall Code(s): W19.XXXA - UNSPECIFIED FALL, INITIAL ENCOUNTER Qualifiers: (3) Chronic respiratory failure Code(s): J96.10 - CHRONIC RESPIRATORY FAILURE, UNSP W HYPOXIA OR HYPERCAPNIA Qualifiers: (4) CAD (coronary artery disease) Code(s): I25.10 - ATHSCL HEART DISEASE OF [place] CORONARY ARTERY W/O ANG PCTRS Qualifiers: [place] vs. transplanted heart: [place] heart Associated angina: without angina (5) CKD (chronic kidney disease) Code(s): N18.9 - CHRONIC KIDNEY DISEASE, UNSPECIFIED Qualifiers: Chronic kidney disease stage: stage 2 (mild) Qualified Code(s): N18.2 - Chronic kidney disease, stage 2 (mild) (6) COPD (chronic obstructive pulmonary disease) Code(s): J44.9 - CHRONIC OBSTRUCTIVE PULMONARY DISEASE, UNSPECIFIED (7) Congestive heart failure (CHF) Code(s): I50.9 - HEART FAILURE, UNSPECIFIED (8) Diabetes mellitus Code(s): E11.9 - TYPE 2 DIABETES MELLITUS WITHOUT COMPLICATIONS Qualifiers: Diabetes mellitus type: type 2 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 Diabetes mellitus complication status: with circulatory complication Diabetes mellitus complication detail: with peripheral angiopathy with gangrene Qualified Code(s): E11.52 - Type 2 diabetes mellitus with diabetic peripheral angiopathy with gangrene (9) Hyperlipidemia Code(s): E78.5 - HYPERLIPIDEMIA, UNSPECIFIED (10) Hypertension Code(s): I10 - ESSENTIAL (PRIMARY) HYPERTENSION Qualifiers: Hypertension type: essential hypertension Qualified Code(s): I10 - Essential (primary) hypertension Assessment/Plan (1) Fracture of femoral neck, left Assessment/Plan: -s/p surgery -PT consult -oxycodone for pain control Code(s): S72.002A - FRACTURE OF UNSP PART OF NECK OF LEFT FEMUR, INIT Qualifiers: Encounter type: initial encounter Fracture type: closed Qualified Code(s) : S72.002A - Fracture of unspecified part of neck of left femur, initial encounter for closed fracture (2) Fall Assessment/Plan: -fall risk precautions Code(s): W19.XXXA - UNSPECIFIED FALL, INITIAL ENCOUNTER Qualifiers: (3) Chronic respiratory failure Assessment/Plan: -stable -continue COPD treatment -continue oxygen support Code(s): J96.10 - CHRONIC RESPIRATORY FAILURE, UNSP W HYPOXIA OR HYPERCAPNIA Qualifiers: (4) CAD (coronary artery disease) Assessment/Plan: -appreciate cardiology assistance -restart plavix pending ortho and cardiology Code(s): I25.10 - ATHSCL HEART DISEASE OF [place] CORONARY ARTERY W/O ANG PCTRS Qualifiers: [place] vs. transplanted heart: [place] heart Associated angina: without angina (5) CKD (chronic kidney disease) Assessment/Plan: -baseline Code(s): N18.9 - CHRONIC KIDNEY DISEASE, UNSPECIFIED Qualifiers: Chronic kidney disease stage: stage 2 (mild) Qualified Code(s): N18.2 - Chronic kidney disease, stage 2 (mild) (6) COPD (chronic obstructive pulmonary disease) Assessment/Plan: -not in exacerbation -continue current regimen Code(s): J44.9 - CHRONIC OBSTRUCTIVE PULMONARY DISEASE, UNSPECIFIED (7) Congestive heart failure (CHF) Assessment/Plan: -continue coreg, hydralazine, imdur -not in exacerbation Code(s): I50.9 - HEART FAILURE, UNSPECIFIED (8) Diabetes mellitus Assessment/Plan: -diabetic diet -FSBS and SSI Code(s): E11.9 - TYPE 2 DIABETES MELLITUS WITHOUT COMPLICATIONS Qualifiers: Diabetes mellitus type: type 2 Diabetes mellitus shelter insulin use: with shelter use Diabetes mellitus complication status: with circulatory complication Diabetes mellitus complication detail: with peripheral angiopathy with gangrene Qualified Code(s): E11.52 - Type 2 diabetes mellitus with diabetic peripheral angiopathy with gangrene (9) Hyperlipidemia Assessment/Plan: -continue lipitor Code(s): E78.5 - HYPERLIPIDEMIA, UNSPECIFIED (10) Hypertension Assessment/Plan: -continue current regimen Code(s): I10 - ESSENTIAL (PRIMARY) HYPERTENSION Qualifiers: Hypertension type: essential hypertension Qualified Code(s): I10 - Essential (primary) hypertension
--- NOTE | 2019-01-07 10:37 | PN ---
Progress Note, Physician Chief Complaint: fall/hip frx History of Present Illness: c/o pain at hip, has to lie perfectly still. no cp, sob/orthopnea, palpitations - Current Medication List Current Medications: Active Medications Acetaminophen (Tylenol -) 325 mg PO Q4H PRN PRN Reason: PAIN LEVEL 1-5 Stop: 01/09/19 13:26 Acetaminophen (Tylenol -) 650 mg PO Q4H PRN PRN Reason: PAIN LEVEL 6-10 Stop: 01/09/19 13:27 Last Admin: 01/07/19 08:24 Dose: 650 mg Amlodipine Besylate (Norvasc -) 5 mg PO DAILY [facility] Last Admin: 01/07/19 10:13 Dose: 5 mg Atorvastatin Calcium (Lipitor -) 40 mg PO HS [facility] Last Admin: 01/06/19 21:02 Dose: 40 mg Budesonide/Formoterol Fumarate (Symbicort 160/4.5mcg -) 2 puff IH BID [facility] Last Admin: 01/06/19 21:35 Dose: Not Given Carvedilol (Coreg -) 6.25 mg PO BID [facility] Last Admin: 01/07/19 10:09 Dose: 6.25 mg Cefazolin Sodium/Dextrose (Ancef 2 Gm Premixed Ivpb -) 2 gm IVPB Q8H-IV [facility] Stop: 01/07/19 17:59 Last Admin: 01/07/19 10:08 Dose: 2 gm Furosemide (Lasix -) 80 mg PO DAILY [facility] Last Admin: 01/07/19 10:05 Dose: 80 mg Hydralazine HCl (Apresoline -) 10 mg PO BID [facility] Last Admin: 01/07/19 10:10 Dose: 10 mg Sodium Chloride (Normal Saline -) 1,000 mls @ 125 mls/hr IV ASDIR [facility] Last Admin: 01/07/19 06:06 Dose: 125 mls/hr Insulin Aspart (Novolog Vial Sliding Scale -) 1 vial SQ ACHS [facility]; Protocol Last Admin: 01/07/19 06:09 Dose: 2 units Isosorbide Mononitrate (Imdur -) 30 mg PO DAILY [facility] Last Admin: 01/07/19 10:09 Dose: 30 mg Ondansetron HCl (Zofran Injection) 4 mg IVPUSH Q6H PRN PRN Reason: NAUSEA AND/OR VOMITING Oxycodone HCl (Roxicodone -) 5 mg PO Q4H PRN PRN Reason: PAIN LEVEL 1-5 Last Admin: 01/07/19 05:40 Dose: 5 mg Oxycodone HCl (Roxicodone -) 10 mg PO Q4H PRN PRN Reason: PAIN LEVEL 6-10 Last Admin: 01/07/19 02:07 Dose: 10 mg Pregabalin (Lyrica -) 50 mg PO BID [facility] Last Admin: 01/07/19 10:06 Dose: 50 mg Sodium Bicarbonate (Sodium Bicarbonate -) 650 mg PO DAILY [facility] Last Admin: 01/07/19 10:05 Dose: 650 mg Vancomycin HCl (Vancomycin Oral Solution) 125 mg PO Q6HPO [facility] Last Admin: 01/07/19 05:39 Dose: 125 mg Zolpidem Tartrate (Ambien -) 5 mg PO HS PRN PRN Reason: INSOMNIA Last Admin: 01/06/19 21:02 Dose: 5 mg - Objective Vital Signs: Vital Signs Temperature 98.3 F 01/07/19 04:00 Pulse Rate 95 H 01/07/19 06:00 Respiratory Rate 23 H 01/07/19 08:27 Blood Pressure 148/70 01/07/19 06:00 O2 Sat by Pulse Oximetry (%) 97 01/07/19 08:34 Constitutional: Yes: Well Nourished, No Distress, Calm Cardiovascular: Yes: Regular Rate and Rhythm, S1, S2. No: Gallop, Murmur Respiratory: Yes: Regular, CTA Bilaterally (anteriorly (pain)). No: Accessory Muscle Use, Rales, Wheezes Extremities: No: Cold Edema: No Neurological: Yes: Alert, Oriented Psychiatric: No: Agitated Labs: CBC, BMP 01/07/19 05:30 01/07/19 05:30 INR, PTT INR 1.03 (0.83-1.09) 01/04/19 05:40 Assessment/Plan ecg: sr, 1avb, rbbb. inf q's, no sig change prior CXR: central congestion, stable compared to prior [facility] 05/15: 70-80% mRCA (ISR), 70-80% RPDA (ISR); 70-80% mLAD; 80-90% pLCX (small vessel); 90-95% OM2 (large vessel); 80-90% prox Ramus (large vessel) ...nonobstructive dz of note [id number]% ostial RCA, 50-60% eccentric lesion OM1 (large vessel); EDP 30-->25 post-nitro EF 38% (diffuse WMAs) Syntax score 20 Echo 10/29/18: mod LVE, mild global LV hypo (45-50%). RV tds. mild TR. no vegetations noted Echo 05/15: mod to sev decr LVEF; severe hypokinesis of all [place] except basal segments. nl RV. mild MR/TR. no peric eff. 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: NSR with frequent Mobitz 1 second degr AVB a/p: 68M h/o dm, ckd (1.5-2), CVA 10/2014, CAD s/p STEMI and multiple pci's, ischemic CM with systolic chf, COPD, extensive smoking history (quit 12/2016) here s/p fall. fall, hip fx: -mechanical fall, no signs cardiac etiology -s/p surgical repair of fracture hx CVA -dx'd lacunar infarct 2013 clinically then (slurred speech) -? acute CVA/TIA 2014, seen by neuro then--ASA added to prior plavix at that time - on aspirin and plavix for recurrent strokes, continue after surgery CAD: -2004 s/p PCI ([facility]) to 100% occl RPDA ([facility]) with patent prior RCA stents at that time, EF 50% then; -2011 s/p anterior STEMI 2011 with [facility] LIBBY x 2 to mid LAD then ([facility]); residual 80% prox D1 (large vessel), 95% mD1; 70%mRCA (pre and post prior stents), 70% dCFX; (also 40% RPDA; 60% pCFX; 40% mCFX;) EF then 37% with AK of apex/AL lindsey and AK of IW; -2016 s/p NSTEMI in setting of sepsis/PNA-->[facility] with 70-80% mRCA (ISR), 70-80% RPDA (ISR); 70-80% mLAD; 80-90% pLCX (small vessel); 90-95% OM2 (large vessel); 80-90% prox Ramus (large vessel), 30-50% ostial RCA, 50-60% eccentric lesion OM1 (large vessel); -pt declined cabg twice after that, and has not followed up with cardiology in office -no signs ACS here -on ASA and plavix from before (for recurrent CVAs)--cont same -cont home BB, statin, imdur -outpt cardio followup if pt willing isch CMP/ chronic syst CHF: -mildly reduced EF on last echo -cont home coreg, imdur, hydralazine for chf regimen -h/o BRANT (creat to 2.5) with WENDY in past--stopped. re-trial with lower dose WENDY not possible as pt would have to f/u in office for frequent labs and he is non- compliant -cont home lasix HTN: -bp mildly above goals -same meds, observe trend with pain control BRANT on CKD: -cr freq fluctuates 1.5-2.9 on past admits here, stable abnl ecg, mobitz I 2nd degree AVB, chronic: -seen on tele here in the past -tele stable currently, no significant pauses -no intervention indicated for this benign finding
[2019-01-07] MEDS ORDERED: morphine SULFATE 4 MG/ML VIAL IVPUSH PRN (11:19)
[2019-01-07] MEDS ORDERED: CALCIUM CARBONATE 650 MG TABLET PO ONE (12:00)
--- NOTE | 2019-01-07 12:58 | PN ---
Teaching Attending Note Name of Resident: Tanya Keen ATTENDING PHYSICIAN STATEMENT I saw and evaluated the patient. I reviewed the resident's note and discussed the case with the resident. I agree with the resident's findings and plan as documented. SUBJECTIVE: Patient seen and examined in the ICU. Awake and alert. Some discomfort in the left hip. No CP or SOB. Intake & Output 01/04/19 01/05/19 01/06/19 01/07/19 22:59 22:59 23:59 23:59 Intake Total 1264 Output Total 500 Balance 764 Weight Last Vital Signs Temp Pulse Resp BP Pulse Ox 98.3 F 95 H 23 H 148/70 97 01/07/19 04:00 01/07/19 06:00 01/07/19 08:27 01/07/19 06:00 01/07/19 08:34 Active Medications Acetaminophen (Tylenol -) 325 mg PO Q4H PRN PRN Reason: PAIN LEVEL 1-3 Stop: 01/09/19 13:26 Acetaminophen (Tylenol -) 650 mg PO Q4H PRN PRN Reason: PAIN LEVEL 7-10 Stop: 01/09/19 13:27 Last Admin: 01/07/19 08:24 Dose: 650 mg Amlodipine Besylate (Norvasc -) 5 mg PO DAILY [facility] Last Admin: 01/07/19 10:13 Dose: 5 mg Atorvastatin Calcium (Lipitor -) 40 mg PO HS [facility] Last Admin: 01/06/19 21:02 Dose: 40 mg Budesonide/Formoterol Fumarate (Symbicort 160/4.5mcg -) 2 puff IH BID [facility] Last Admin: 01/06/19 21:35 Dose: Not Given Carvedilol (Coreg -) 6.25 mg PO BID [facility] Last Admin: 01/07/19 10:09 Dose: 6.25 mg Cefazolin Sodium/Dextrose (Ancef 2 Gm Premixed Ivpb -) 2 gm IVPB Q8H-IV [facility] Stop: 01/07/19 17:59 Last Admin: 01/07/19 10:08 Dose: 2 gm Furosemide (Lasix -) 80 mg PO DAILY [facility] Last Admin: 01/07/19 10:05 Dose: 80 mg Heparin Sodium (Porcine) (Heparin -) 5,000 unit SQ TID [facility] Hydralazine HCl (Apresoline -) 10 mg PO BID [facility] Last Admin: 01/07/19 10:10 Dose: 10 mg Sodium Chloride (Normal Saline -) 1,000 mls @ 125 mls/hr IV ASDIR [facility] Last Admin: 01/07/19 06:06 Dose: 125 mls/hr Insulin Aspart (Novolog Vial Sliding Scale -) 1 vial SQ ACHS [facility]; Protocol Last Admin: 01/07/19 12:31 Dose: Not Given Isosorbide Mononitrate (Imdur -) 30 mg PO DAILY [facility] Last Admin: 01/07/19 10:09 Dose: 30 mg Morphine Sulfate (Morphine Sulfate) 4 mg IVPUSH Q6H PRN PRN Reason: PAIN 4-6 Ondansetron HCl (Zofran Injection) 4 mg IVPUSH Q6H PRN PRN Reason: NAUSEA AND/OR VOMITING Oxycodone HCl (Roxicodone -) 5 mg PO Q4H PRN PRN Reason: PAIN LEVEL 1-3 Last Admin: 01/07/19 05:40 Dose: 5 mg Oxycodone HCl (Roxicodone -) 10 mg PO Q4H PRN PRN Reason: PAIN LEVEL 7-10 Last Admin: 01/07/19 10:44 Dose: 10 mg Pregabalin (Lyrica -) 50 mg PO BID [facility] Last Admin: 01/07/19 10:06 Dose: 50 mg Sodium Bicarbonate (Sodium Bicarbonate -) 650 mg PO DAILY [facility] Last Admin: 01/07/19 10:05 Dose: 650 mg Vancomycin HCl (Vancomycin Oral Solution) 125 mg PO Q6HPO [facility] Last Admin: 01/07/19 12:33 Dose: 125 mg Zolpidem Tartrate (Ambien -) 5 mg PO HS PRN PRN Reason: INSOMNIA Last Admin: 01/06/19 21:02 Dose: 5 mg GENERAL: The patient is awake, alert, and fully oriented, in no acute distress. HEAD: Normal with no signs of trauma. EYES: PERRL, extraocular movements intact, sclera anicteric, conjunctiva clear. No ptosis. ENT: Ears normal, nares patent, oropharynx clear without exudates, moist mucous membranes. NECK: Trachea midline, full range of motion, supple. LUNGS: clear to auscultation bilaterally, no wheezes, no crackles, no accessory muscle use. HEART: Regular rate and rhythm, S1, S2 without murmur, rub or gallop. ABDOMEN: Soft, nontender, nondistended, normoactive bowel sounds, no guarding, no rebound, no hepatosplenomegaly, no masses. EXTREMITIES: 2+ pulses, warm, well-perfused, no edema. dressing intact left hip. NEUROLOGICAL: Non-focal PSYCH: Normal mood, normal affect. SKIN: Warm, dry, normal turgor, no rashes or lesions noted Laboratory Results - last 24 hr 01/06/19 01/06/19 01/06/19 05:15 09:05 13:17 WBC RBC Hgb Hct MCV MCH MCHC RDW Plt Count MPV Absolute Neuts (auto) Neutrophils % Neutrophils % (Manual) 83.5 H Band Neutrophils % 1.0 Lymphocytes % Lymphocytes % (Manual) 5.2 L D Monocytes % Monocytes % (Manual) 4 Eosinophils % Eosinophils % (Manual) 0.0 D Basophils % Basophils % (Manual) 0.0 Myelocytes % (Man) 4 H D Promyelocytes % (Man) 0 Blast Cells % (Manual) 0 Nucleated RBC % 0 Metamyelocytes 2 D Hypochromia 0 Platelet Estimate Normal Polychromasia 0 Poikilocytosis 0 Anisocytosis 0 Microcytosis 0 Macrocytosis 0 Sodium Potassium Chloride Carbon Dioxide Anion Gap BUN Creatinine Creat Clearance w eGFR POC Glucometer 158 146 Random Glucose Calcium Phosphorus Magnesium 01/06/19 01/06/19 01/07/19 17:06 20:54 05:28 WBC RBC Hgb Hct MCV MCH MCHC RDW Plt Count MPV Absolute Neuts (auto) Neutrophils % Neutrophils % (Manual) Band Neutrophils % Lymphocytes % Lymphocytes % (Manual) Monocytes % Monocytes % (Manual) Eosinophils % Eosinophils % (Manual) Basophils % Basophils % (Manual) Myelocytes % (Man) Promyelocytes % (Man) Blast Cells % (Manual) Nucleated RBC % Metamyelocytes Hypochromia Platelet Estimate Polychromasia Poikilocytosis Anisocytosis Microcytosis Macrocytosis Sodium Potassium Chloride Carbon Dioxide Anion Gap BUN Creatinine Creat Clearance w eGFR POC Glucometer 163 164 160 Random Glucose Calcium Phosphorus Magnesium 01/07/19 01/07/19 05:30 05:30 WBC 11.3 H RBC 3.08 L Hgb 10.2 L Hct 31.5 L MCV 102.2 H MCH 33.1 MCHC 32.4 RDW 18.3 H Plt Count 285 MPV 7.9 Absolute Neuts (auto) 9.2 H Neutrophils % 81.3 Neutrophils % (Manual) Band Neutrophils % Lymphocytes % 6.2 L D Lymphocytes % (Manual) Monocytes % 11.7 H D Monocytes % (Manual) Eosinophils % 0.2 D Eosinophils % (Manual) Basophils % 0.6 Basophils % (Manual) Myelocytes % (Man) Promyelocytes % (Man) Blast Cells % (Manual) Nucleated RBC % 0 Metamyelocytes Hypochromia Platelet Estimate Polychromasia Poikilocytosis Anisocytosis Microcytosis Macrocytosis Sodium 146 H Potassium 3.4 L Chloride 110 H Carbon Dioxide 27 Anion Gap 9 BUN 7 Creatinine 1.0 Creat Clearance w eGFR > 60 POC Glucometer Random Glucose 155 H Calcium 7.1 L Phosphorus 2.1 L Magnesium 1.5 L ASSESSMENT/PLAN: S/P Left femoral fracture CVA Peripheral neuropathy IDDM CHF HTN ND (s/p 5 stents) HLD COPD GERD CKD S/P Fall Incentive Spirometry O2 as needed Pain control Lasix Symbicort BID VTE prophylaxis Cardiac Telemetry monitoring Dr Perez
[2019-01-07] MEDS ORDERED: HEPARIN NA (PORCINE) 5,000 UNITS/ML 1ML VIAL SQ SCH (14:00)
--- NOTE | 2019-01-07 15:03 | PN ---
Physical Exam: SUBJECTIVE: Patient seen and examined POD #1 left hip pinning s/p left femoral hip fracture, c/o of severe pain to affected area, has not been able to move. OBJECTIVE: Vital Signs Period Temp Pulse Resp BP Sys/Chandra Pulse Ox Last 24 Hr 98.1 F-99.7 F 60-97 20-93 130-166/66-98 97-97 GENERAL: The patient is obese ,awake, alert, and fully oriented, in pain Neck: no adenopathy Breast axilla; no masses/lumps LUNGS: was not able to move due to pain ; i was unable to auscultate posterior lung pena; anterior was clear HEART: Regular rate and rhythm, S1, S2 without murmur, rub or gallop. ABDOMEN: obese; hypoactive bowel sounds; nontender rebound, no hepatosplenomegaly, no masses. EXTREMITIES: 2+ pulses, warm, well-perfused, no edema. ; left jarocho dressing c/d/ i; no edema or surrounding swelling NEUROLOGICAL: Cranial nerves II through XII grossly intact. UE wnl for stremgth ; reflexes; intact sensation; LE decreased ROM LLE due to pain PSYCH: Normal mood, normal affect. SKIN: Warm, dry, normal turgor, no rashes or lesions noted Laboratory Results - last 24 hr //01/06/19 01/06/19 21:27 17:06 20:54 WBC RBC Hgb Hct MCV MCH MCHC RDW Plt Count MPV Absolute Neuts (auto) Neutrophils % Neutrophils % (Manual) Band Neutrophils % Lymphocytes % Lymphocytes % (Manual) Monocytes % Monocytes % (Manual) Eosinophils % Eosinophils % (Manual) Basophils % Basophils % (Manual) Myelocytes % (Man) Promyelocytes % (Man) Blast Cells % (Manual) Nucleated RBC % Metamyelocytes Hypochromia Platelet Estimate Polychromasia Poikilocytosis Anisocytosis Microcytosis Macrocytosis Sodium Potassium Chloride Carbon Dioxide Anion Gap BUN Creatinine Creat Clearance w eGFR POC Glucometer 96 163 164 Random Glucose Calcium Phosphorus Magnesium Albumin 01/07/19 01/07/19 01/07/19 05:28 05:30 05:30 WBC 11.3 H RBC 3.08 L Hgb 10.2 L Hct 31.5 L MCV 102.2 H MCH 33.1 MCHC 32.4 RDW 18.3 H Plt Count 285 MPV 7.9 Absolute Neuts (auto) 9.2 H Neutrophils % 81.3 Neutrophils % (Manual) 77.2 Band Neutrophils % 0.0 Lymphocytes % 6.2 L D Lymphocytes % (Manual) 11.9 D Monocytes % 11.7 H D Monocytes % (Manual) 7 Eosinophils % 0.2 D Eosinophils % (Manual) 0.0 Basophils % 0.6 Basophils % (Manual) 0.0 Myelocytes % (Man) 3 H D Promyelocytes % (Man) 0 Blast Cells % (Manual) 0 Nucleated RBC % 0 Metamyelocytes 1 D Hypochromia 1+ Platelet Estimate Normal Polychromasia 0 Poikilocytosis 0 Anisocytosis 0 Microcytosis 0 Macrocytosis 0 Sodium 146 H Potassium 3.4 L Chloride 110 H Carbon Dioxide 27 Anion Gap 9 BUN 7 Creatinine 1.0 Creat Clearance w eGFR > 60 POC Glucometer 160 Random Glucose 155 H Calcium 7.1 L Phosphorus 2.1 L Magnesium 1.5 L Albumin 2.3 L 01/07/19 12:24 WBC RBC Hgb Hct MCV MCH MCHC RDW Plt Count MPV Absolute Neuts (auto) Neutrophils % Neutrophils % (Manual) Band Neutrophils % Lymphocytes % Lymphocytes % (Manual) Monocytes % Monocytes % (Manual) Eosinophils % Eosinophils % (Manual) Basophils % Basophils % (Manual) Myelocytes % (Man) Promyelocytes % (Man) Blast Cells % (Manual) Nucleated RBC % Metamyelocytes Hypochromia Platelet Estimate Polychromasia Poikilocytosis Anisocytosis Microcytosis Macrocytosis Sodium Potassium Chloride Carbon Dioxide Anion Gap BUN Creatinine Creat Clearance w eGFR POC Glucometer 152 Random Glucose Calcium Phosphorus Magnesium Albumin Active Medications Generic Name Dose Route Start Last Admin Trade Name Freq PRN Reason Stop Dose Admin Acetaminophen 325 mg 01/06/19 13:27 Tylenol - PO 01/09/19 13:26 Q4H PRN PAIN LEVEL 1-3 Acetaminophen 650 mg 01/06/19 13:28 01/07/19 08:24 Tylenol - PO 01/09/19 13:27 650 mg Q4H PRN Administration PAIN LEVEL 7-10 Amlodipine Besylate 5 mg 01/07/19 10:00 01/07/19 10:13 Norvasc - PO 5 mg DAILY RADHA Administration Aspirin 81 mg 01/07/19 15:00 Asa - PO DAILY [facility] Atorvastatin Calcium 40 mg 01/06/19 22:00 01/06/19 21:02 Lipitor - PO 40 mg HS RADHA Administration Budesonide/Formoterol Fumarate 2 puff 01/06/19 22:00 01/06/19 21:35 Symbicort 160/4.5mcg - IH Not Given BID [facility]HA Carvedilol 6.25 mg 01/06/19 22:00 01/07/19 10:09 Coreg - PO 6.25 mg BID [facility] Administration Cefazolin Sodium/Dextrose 2 gm 01/06/19 18:00 01/07/19 10:08 Ancef 2 Gm Premixed Ivpb - IVPB 01/07/19 17:59 2 gm Q8H-IV RADHA Administration Clopidogrel Bisulfate 75 mg 01/07/19 14:45 Plavix - PO DAILY [facility] Furosemide 80 mg 01/07/19 10:00 01/07/19 10:05 Lasix - PO 80 mg DAILY [facility] Administration Heparin Sodium (Porcine) 5,000 unit 01/07/19 14:00 01/07/19 14:23 Heparin - SQ 5,000 unit TID [facility] Administration Hydralazine HCl 10 mg 01/06/19 22:00 01/07/19 10:10 Apresoline - PO 10 mg BID [facility] Administration Sodium Chloride 1,000 mls @ 125 mls/hr 01/06/19 11:45 01/07/19 14:55 Normal Saline - IV 125 mls/hr ASDIR [facility] Administration Insulin Aspart 1 vial 01/07/19 07:00 01/07/19 12:31 Novolog Vial Sliding Scale - SQ Not Given ACHS [facility] Protocol Isosorbide Mononitrate 30 mg 01/07/19 10:00 01/07/19 10:09 Imdur - PO 30 mg DAILY [facility] Administration Morphine Sulfate 4 mg 01/07/19 11:19 01/07/19 14:20 Morphine Sulfate IVPUSH 4 mg Q6H PRN Administration PAIN 4-6 Ondansetron HCl 4 mg 01/06/19 11:44 Zofran Injection IVPUSH Q6H PRN NAUSEA AND/OR VOMITING Oxycodone HCl 5 mg 01/06/19 13:27 01/07/19 05:40 Roxicodone - PO 5 mg Q4H PRN Administration PAIN LEVEL 1-3 Oxycodone HCl 10 mg 01/06/19 13:28 01/07/19 10:44 Roxicodone - PO 10 mg Q4H PRN Administration PAIN LEVEL 7-10 Pregabalin 50 mg 01/06/19 22:00 01/07/19 10:06 Lyrica - PO 50 mg BID [facility] Administration Sodium Bicarbonate 650 mg 01/07/19 10:00 01/07/19 10:05 Sodium Bicarbonate - PO 650 mg DAILY [facility] Administration Vancomycin HCl 125 mg 01/06/19 18:00 01/07/19 12:33 Vancomycin Oral Solution PO 125 mg Q6HPO [facility] Administration Zolpidem Tartrate 5 mg 01/06/19 15:19 01/06/19 21:02 Ambien - PO 5 mg HS PRN Administration INSOMNIA ASSESSMENT/PLAN: This is a 68 year old male with a medical history CVA, HTN, IDDM, CHF, CAD, COPD , CKD who was admitted for for left femoral fracture, POD #1 for cannulated screw placement for left impacted femoral neck. #Left femoral neck fracture POD#1 -pain control with roxicodone and morphine prn -pre/pos op antibiotics; ancef -started on heparin sq for dvt ppl today -restart asa/plavix -PT #macrocytic anemia -iron studies; B12, folate, tsh, retic count, ldh, flow, cytometry, FISH (w/u MDS) #HTN: elevated -ml due to uncontrolled pain; control pain ; reasses -cont carvedilol, hydraylzine, norvasc\ #CHF hx: controlled -continue lasix 80 qd -decrease ivf; now eating #IDDM: controlled -insulin ss; -hemoglobin a1c; -no ton long acting at home; monitor insulin req while here #COPD hx: controlled -on home o2 24hts per day -inhaled broncodilators cont -outpatient low dose chest ct eval for lung ; as perpateitn has never had chest imaging?; smoked 4ppd >20yrs #hypokalemia #hypophosphtemia FEN: decreased IVF as patient taking po replace electrolytes; mg; k, po intake Visit type - Emergency Visit Emergency Visit: Yes ED Registration Date: 01/03/19 Care time: The patient presented to the Emergency Department on the above date and was hospitalized for further evaluation of their emergent condition. - New Patient This patient is new to me today: Yes Date on this admission: 01/07/19 - Critical Care Critical Care patient: Yes Total Critical Care Time (in minutes): 45 Critical Care Statement: The care of this patient involved high complexity decision making to prevent further life threatening deterioration of the patient 's condition and/or to evaluate & treat vital organ system(s) failure or risk of failure.
[2019-01-07] MEDS ORDERED: SODIUM CHLORIDE 1,000 ML IV SCH (15:27)
[2019-01-07] MEDS: CLOPIDOGREL BISULFATE 75 MG TABLET (FP) PO SCH (17:12)
[2019-01-07] MEDS: ASPIRIN 81 MG CHEWABLE TABLETS PO SCH (17:12)
[2019-01-07] MEDS ORDERED: ONDANSETRON 4 MG/2 ML VIAL IVPUSH PRN (17:25)
[2019-01-07] MEDS ORDERED: ZOLPIDEM TARTRATE 5 MG TABLET PO PRN (17:25)
--- NOTE | 2019-01-07 18:22 | PN ---
Progress Note (short form) - Note Progress Note: Pt s/p L hip pinning. Notes persistent L hip pain. Vital Signs - 24 hr 01/06/19 01/06/19 01/06/19 19:00 20:00 20:31 Temperature Pulse Rate 83 97 H Respiratory 20 23 H Rate Blood Pressure 166/81 166/84 O2 Sat by Pulse 97 Oximetry (%) 01/06/19 01/06/19 01/06/19 21:00 22:00 23:00 Temperature 99.7 F H Pulse Rate 81 92 H 78 Respiratory 30 H 28 H 37 H Rate Blood Pressure 155/67 160/75 130/68 O2 Sat by Pulse Oximetry (%) 01/07/19 01/07/19 01/07/19 00:19 01:00 02:00 Temperature 98.1 F Pulse Rate 60 87 89 Respiratory 30 H 37 H 93 H Rate Blood Pressure 133/66 144/66 158/67 O2 Sat by Pulse Oximetry (%) 01/07/19 01/07/19 01/07/19 03:00 04:00 05:00 Temperature 98.3 F Pulse Rate 77 81 94 H Respiratory 36 H 34 H 28 H Rate Blood Pressure 141/70 159/83 159/98 O2 Sat by Pulse Oximetry (%) 01/07/19 01/07/19 01/07/19 06:00 08:00 08:27 Temperature Pulse Rate 95 H 79 Respiratory 23 H 28 H 23 H Rate Blood Pressure 148/70 161/86 O2 Sat by Pulse 97 Oximetry (%) 01/07/19 01/07/19 01/07/19 08:34 10:00 12:00 Temperature 98.5 F Pulse Rate 90 73 Respiratory 27 H 31 H Rate Blood Pressure 160/87 158/74 O2 Sat by Pulse 97 Oximetry (%) 01/07/19 01/07/19 14:00 17:31 Temperature 98.6 F Pulse Rate 77 88 Respiratory 19 22 H Rate Blood Pressure 156/75 151/79 O2 Sat by Pulse Oximetry (%) LLE dressing cdi ehl fhl ta g s intact sens int to LT 2+ dp calves soft NT Abnormal Lab Results 01/07/19 01/07/19 05:30 05:30 WBC 11.3 H RBC 3.08 L Hgb 10.2 L Hct 31.5 L MCV 102.2 H RDW 18.3 H Absolute Neuts (auto) 9.2 H Lymphocytes % 6.2 L D Monocytes % 11.7 H D Myelocytes % (Man) 3 H D Sodium 146 H Potassium 3.4 L Chloride 110 H Random Glucose 155 H Calcium 7.1 L Phosphorus 2.1 L Magnesium 1.5 L Albumin 2.3 L a/p: POD 1 L hip pinning -pain control -dvt proph -oob/start PT -dispo planning Problem List - Problems (1) Nondisplaced fracture of base of neck of left femur, initial encounter for closed fracture Code(s): S72.045A - NONDISP FX OF BASE OF NECK OF LEFT FEMUR, INIT FOR CLOS FX
[2019-01-07] MEDS ORDERED: ATORVASTATIN CA 40 MG TABLET (FP) PO SCH (22:00)
[2019-01-07] MEDS: HEPARIN NA (PORCINE) 5,000 UNITS/ML 1ML VIAL SQ SCH (22:01)
[2019-01-07] MEDS: morphine SULFATE 4 MG/ML VIAL IVPUSH PRN (22:08)
[2019-01-07] MEDS: BUDESONIDE/FORMETEROL FUMARATE 160/4.5 mcg INHALER IH SCH (23:00)
[2019-01-08] MEDS: oxyCODONE HCL 5 MG TABLET PO PRN ×5 (01:21→13:52)
[2019-01-08] MEDS: ACETAMINOPHEN 325 MG TABLET (FP) PO PRN ×5 (01:23→19:33)
[2019-01-08] MEDS: ceFAZolin 2 GRAM PREMIX BAG IVPB SCH ×2 (01:24→10:02)
[2019-01-08] MEDS: HEPARIN NA (PORCINE) 5,000 UNITS/ML 1ML VIAL SQ SCH ×2 (06:17→13:22)
[2019-01-08] MEDS: INSULIN SLIDING SCALE (NOVOLOG) 1 VIAL SQ SCH ×3 (06:20→18:30)
[2019-01-08 07:54] LABS: BASO % 0.7 % (0-2.0); EOS % 0.9 % (0-4.5); HEMATOCRIT 31.4 % (35.4-49); LYMPH % 7.7 % (8-40); MCH 32.7 pg (25.7-33.7); MCHC 31.9 g/dl (32.0-35.9); MEAN CELL VOLUME 102.7 fl (80-96); MEAN PLT VOLUME 8.5 fl (7.5-11.1); MONO % 9.7 % (3.8-10.2); PLATELET COUNT 260 K/MM3 (134-434); RBC 3.05 M/mm3 (4.00-5.60); RDW 18.2 % (11.9-15.9); WHITE BLOOD COUNT 11.6 K/mm3 (4.0-10.0)
[2019-01-08 09:00] LABS: ALBUMIN 2.1 g/dl (3.4-5.0); ANION GAP 7 MMOL/L (8-16); BLOOD UREA NITROGEN 7 mg/dL (7-18); CALCIUM 7.4 mg/dL (8.5-10.1); CHLORIDE 106 mmol/L (98-107); CO2 29 mmol/L (21-32); CREATININE 1.1 mg/dL (0.55-1.3); GAMMA GLUTAMYL TRANSPEPTIDASE 89 U/L (5-85); GLUCOSE,RANDOM 124 mg/dL (74-106); MAGNESIUM 1.5 mg/dL (1.8-2.4); PHOSPHOROUS 1.8 mg/dL (2.5-4.9); POTASSIUM 3.5 mmol/L (3.5-5.1); SODIUM 142 mmol/L (136-145)
[2019-01-08] MEDS ORDERED: MAGNESIUM OXIDE 400 MG TABLET (FP) PO ONE (09:29)
--- NOTE | 2019-01-08 09:59 | PN ---
Progress Note (short form) - Note Progress Note: s: no chest pain, palps, dizziness, lightheadedness Current Medications Acetaminophen (Tylenol -) 325 mg PO Q4H PRN PRN Reason: PAIN LEVEL 1-3 Stop: 01/09/19 13:26 Last Admin: 01/08/19 01:23 Dose: 325 mg Acetaminophen (Tylenol -) 650 mg PO Q4H PRN PRN Reason: PAIN LEVEL 4-6 Stop: 01/09/19 13:27 Last Admin: 01/08/19 06:11 Dose: 650 mg Amlodipine Besylate (Norvasc -) 5 mg PO DAILY [facility] Aspirin (Asa -) 81 mg PO DAILY [facility] Last Admin: 01/07/19 17:12 Dose: 81 mg Atorvastatin Calcium (Lipitor -) 40 mg PO HS [facility] Last Admin: 01/07/19 22:00 Dose: 40 mg Budesonide/Formoterol Fumarate (Symbicort 160/4.5mcg -) 2 puff IH BID [facility] Last Admin: 01/07/19 23:00 Dose: 2 inh Carvedilol (Coreg -) 6.25 mg PO BID [facility] Last Admin: 01/07/19 22:00 Dose: 6.25 mg Cefazolin Sodium/Dextrose (Ancef 2 Gm Premixed Ivpb -) 2 gm IVPB Q8H-IV [facility] Stop: 01/08/19 17:59 Last Admin: 01/08/19 01:24 Dose: 2 gm Clopidogrel Bisulfate (Plavix -) 75 mg PO DAILY [facility] Last Admin: 01/07/19 17:12 Dose: 75 mg Folic Acid (Folic Acid -) 1 mg PO DAILY [facility] Furosemide (Lasix -) 80 mg PO DAILY [facility] Heparin Sodium (Porcine) (Heparin -) 5,000 unit SQ TID [facility] Last Admin: 01/08/19 06:17 Dose: 5,000 unit Hydralazine HCl (Apresoline -) 10 mg PO BID [facility] Last Admin: 01/07/19 22:00 Dose: 10 mg Insulin Aspart (Novolog Vial Sliding Scale -) 1 vial SQ ACHS [facility]; Protocol Last Admin: 01/08/19 06:20 Dose: Not Given Isosorbide Mononitrate (Imdur -) 30 mg PO DAILY [facility] Morphine Sulfate (Morphine Sulfate) 4 mg IVPUSH Q6H PRN PRN Reason: PAIN LEVEL 7 - 10 Last Admin: 01/07/19 22:08 Dose: 4 mg Ondansetron HCl (Zofran Injection) 4 mg IVPUSH Q6H PRN PRN Reason: NAUSEA AND/OR VOMITING Oxycodone HCl (Roxicodone -) 5 mg PO Q4H PRN PRN Reason: PAIN LEVEL 1-3 Last Admin: 01/08/19 08:06 Dose: 5 mg Oxycodone HCl (Roxicodone -) 10 mg PO Q4H PRN PRN Reason: PAIN LEVEL 4-6 Last Admin: 01/08/19 06:12 Dose: 10 mg Potassium Phos/Sodium Phos (Phos-Nak Packet -) 1 packet PO BID [facility] Stop: 01/09/19 08:00 Pregabalin (Lyrica -) 50 mg PO BID [facility] Last Admin: 01/07/19 22:01 Dose: 50 mg Sodium Bicarbonate (Sodium Bicarbonate -) 650 mg PO DAILY [facility] Zolpidem Tartrate (Ambien -) 5 mg PO HS PRN PRN Reason: INSOMNIA Last Admin: 01/07/19 23:04 Dose: 5 mg Vital Signs Period Temp Pulse Resp BP Sys/Chandra Pulse Ox Last 24 Hr 98.5 F-99.8 F 73-94 19-31 135-160/74-87 97 Constitutional: Yes: Well Nourished, No Distress, Calm Cardiovascular: Yes: Regular Rate and Rhythm, S1, S2. No: Gallop, Murmur Respiratory: Yes: Regular, CTA Bilaterally (anteriorly (pain)). No: Accessory Muscle Use, Rales, Wheezes Extremities: No: Cold Edema: No Neurological: Yes: Alert, Oriented Psychiatric: No: Agitated Assessment/Plan ecg: sr, 1avb, rbbb. inf q's, no sig change prior CXR: central congestion, stable compared to prior [facility] 05/15: 70-80% mRCA (ISR), 70-80% RPDA (ISR); 70-80% mLAD; 80-90% pLCX (small vessel); 90-95% OM2 (large vessel); 80-90% prox Ramus (large vessel) ...nonobstructive dz of note ocuxoems66-57% ostial RCA, 50-60% eccentric lesion OM1 (large vessel); EDP 30-->25 post-nitro EF 38% (diffuse WMAs) Syntax score 20 Echo 10/29/18: mod LVE, mild global LV hypo (45-50%). RV tds. mild TR. no vegetations noted Echo 05/15: mod to sev decr LVEF; severe hypokinesis of all lindsey except basal segments. nl RV. mild MR/TR. no peric eff. 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: NSR with frequent Mobitz 1 second degr AVB a/p: 68M h/o dm, ckd (1.5-2), CVA 10/2014, CAD s/p STEMI and multiple pci's, ischemic CM with systolic chf, COPD, extensive smoking history (quit 12/2016) here s/p fall. fall, hip fx: -mechanical fall, no signs cardiac etiology -s/p surgical repair of fracture hx CVA -dx'd lacunar infarct 2013 clinically then (slurred speech) -? acute CVA/TIA 2014, seen by neuro then--ASA added to prior plavix at that time - on aspirin and plavix for recurrent strokes, continue CAD: -2004 s/p PCI ([facility]) to 100% occl RPDA ([facility]) with patent prior RCA stents at that time, EF 50% then; -2011 s/p anterior STEMI 2011 with [place] [facility]BY x 2 to mid LAD then ([facility]); residual 80% prox D1 (large vessel), 95% mD1; 70%mRCA (pre and post prior stents), 70% dCFX; (also 40% RPDA; 60% pCFX; 40% mCFX;) EF then 37% with AK of apex/AL lindsey and AK of IW; -2016 s/p NSTEMI in setting of sepsis/PNA-->[facility] with 70-80% mRCA (ISR), 70-80% RPDA (ISR); 70-80% mLAD; 80-90% pLCX (small vessel); 90-95% OM2 (large vessel); 80-90% prox Ramus (large vessel), 30-50% ostial RCA, 50-60% eccentric lesion OM1 (large vessel); -pt declined cabg twice after that, and has not followed up with cardiology in office -no signs ACS here -on ASA and plavix from before (for recurrent CVAs)--cont same -cont home BB, statin, imdur -outpt cardio followup if pt willing isch CMP/ chronic syst CHF: -mildly reduced EF on last echo -cont home coreg, imdur, hydralazine for chf regimen -h/o BRANT (creat to 2.5) with WENDY in past--stopped. re-trial with lower dose WENDY not possible as pt would have to f/u in office for frequent labs and he is non- compliant -cont home lasix HTN: -bp mildly above goals -same meds, observe trend with pain control BRANT on CKD: -cr freq fluctuates 1.5-2.9 on past admits here, stable abnl ecg, mobitz I 2nd degree AVB, chronic: -seen on tele here in the past -tele stable currently, no significant pauses -no intervention indicated for this benign finding
[2019-01-08] MEDS ORDERED: FUROSEMIDE 40 MG TABLET (FP) PO SCH (10:00)
[2019-01-08] MEDS ORDERED: NAPH,MB-DB/K PH,MBDB POWDER PACKET PO SCH (10:00)
[2019-01-08] MEDS ORDERED: SODIUM BICARBONATE 650 MG TABLET PO SCH (10:00)
[2019-01-08] MEDS ORDERED: ISOSORBIDE MONONITRATE 30 MG TAB.SR.24H (FP) PO SCH (10:00)
[2019-01-08] MEDS ORDERED: FOLIC ACID 1 MG TABLET (FP) PO SCH (10:00)
[2019-01-08] MEDS ORDERED: amLODIPine BESYLATE 5 MG TABLET (FP) PO SCH (10:00)
[2019-01-08] MEDS: hydrALAZINE HCL 10 MG TABLET PO SCH (10:03)
[2019-01-08] MEDS: ASPIRIN 81 MG CHEWABLE TABLETS PO SCH (10:03)
[2019-01-08] MEDS: PREGABALIN 50 MG CAPSULE PO SCH (10:03)
[2019-01-08] MEDS: CARVEDILOL 6.25 MG TABLET (FP) PO SCH (10:03)
[2019-01-08] MEDS: CLOPIDOGREL BISULFATE 75 MG TABLET (FP) PO SCH (10:03)
[2019-01-08] MEDS: BUDESONIDE/FORMETEROL FUMARATE 160/4.5 mcg INHALER IH SCH (10:04)
[2019-01-08] MEDS: morphine SULFATE 4 MG/ML VIAL IVPUSH PRN ×2 (10:04→16:09)
[2019-01-08 11:17] LABS: ANISOCYTOSIS 1+; MACROCYTOSIS 1+; OVALOCYTE 1+; PLATELET ESTIMATE NORMAL; TEAR DROP CELLS 1+
--- NOTE | 2019-01-08 12:05 | PN ---
Progress Note (short form) - Note Progress Note: PULMONARY Denies shortness of breath, cough or wheezing. c/o left hip pain. Vital Signs Period Temp Pulse Resp BP Sys/Chandra Pulse Ox Last 24 Hr 98.6 F-99.8 F 77-94 19-22 135-156/70-85 94-97 Gen: NAD at rest Heart: RRR Lung: decreased breath sounds at the bases Abd: soft, nontender Ext: no edema CBC, BMP 01/08/19 06:48 01/08/19 06:48 Active Medications Acetaminophen (Tylenol -) 325 mg PO Q4H PRN PRN Reason: PAIN LEVEL 1-3 Stop: 01/09/19 13:26 Last Admin: 01/08/19 01:23 Dose: 325 mg Acetaminophen (Tylenol -) 650 mg PO Q4H PRN PRN Reason: PAIN LEVEL 4-6 Stop: 01/09/19 13:27 Last Admin: 01/08/19 12:02 Dose: 650 mg Amlodipine Besylate (Norvasc -) 5 mg PO DAILY [facility] Last Admin: 01/08/19 10:03 Dose: 5 mg Aspirin (Asa -) 81 mg PO DAILY [facility] Last Admin: 01/08/19 10:03 Dose: 81 mg Atorvastatin Calcium (Lipitor -) 40 mg PO HS [facility] Last Admin: 01/07/19 22:00 Dose: 40 mg Budesonide/Formoterol Fumarate (Symbicort 160/4.5mcg -) 2 puff IH BID [facility] Last Admin: 01/08/19 10:04 Dose: 2 inh Carvedilol (Coreg -) 6.25 mg PO BID [facility] Last Admin: 01/08/19 10:03 Dose: 6.25 mg Cefazolin Sodium/Dextrose (Ancef 2 Gm Premixed Ivpb -) 2 gm IVPB Q8H-IV [facility] Stop: 01/08/19 17:59 Last Admin: 01/08/19 10:02 Dose: 2 gm Clopidogrel Bisulfate (Plavix -) 75 mg PO DAILY [facility] Last Admin: 01/08/19 10:03 Dose: 75 mg Folic Acid (Folic Acid -) 1 mg PO DAILY [facility] Last Admin: 01/08/19 10:03 Dose: 1 mg Furosemide (Lasix -) 80 mg PO DAILY [facility] Last Admin: 01/08/19 10:03 Dose: 80 mg Heparin Sodium (Porcine) (Heparin -) 5,000 unit SQ TID [facility] Last Admin: 01/08/19 06:17 Dose: 5,000 unit Hydralazine HCl (Apresoline -) 10 mg PO BID [facility] Last Admin: 01/08/19 10:03 Dose: 10 mg Insulin Aspart (Novolog Vial Sliding Scale -) 1 vial SQ ACHS [facility]; Protocol Last Admin: 01/08/19 11:46 Dose: Not Given Isosorbide Mononitrate (Imdur -) 30 mg PO DAILY [facility] Last Admin: 01/08/19 10:03 Dose: 30 mg Morphine Sulfate (Morphine Sulfate) 4 mg IVPUSH Q6H PRN PRN Reason: PAIN LEVEL 7 - 10 Last Admin: 01/08/19 10:04 Dose: 4 mg Ondansetron HCl (Zofran Injection) 4 mg IVPUSH Q6H PRN PRN Reason: NAUSEA AND/OR VOMITING Oxycodone HCl (Roxicodone -) 5 mg PO Q4H PRN PRN Reason: PAIN LEVEL 1-3 Last Admin: 01/08/19 08:06 Dose: 5 mg Oxycodone HCl (Roxicodone -) 10 mg PO Q4H PRN PRN Reason: PAIN LEVEL 4-6 Last Admin: 01/08/19 12:01 Dose: 10 mg Potassium Phos/Sodium Phos (Phos-Nak Packet -) 1 packet PO BID [facility] Stop: 01/09/19 08:00 Last Admin: 01/08/19 10:03 Dose: 1 packet Pregabalin (Lyrica -) 50 mg PO BID [facility] Last Admin: 01/08/19 10:03 Dose: 50 mg Sodium Bicarbonate (Sodium Bicarbonate -) 650 mg PO DAILY [facility] Last Admin: 01/08/19 10:03 Dose: 650 mg Zolpidem Tartrate (Ambien -) 5 mg PO HS PRN PRN Reason: INSOMNIA Last Admin: 01/07/19 23:04 Dose: 5 mg A/P s/p Mechanical Fall Left Hip Fracture s/p pinning COPD Chronic Hypoxic Respiratory Failure CAD LV Systolic Dysfunction h/o CVA HTN DM CKD - pain control - incentive spirometry - inhaled bronchodilators - O2 to keep SpO2 >90% - rehab/PT - DVT prophylaxis
[2019-01-08] MEDS ORDERED: oxyCODONE HCL 5 MG TABLET PO PRN ×2 (14:50→14:51)
--- NOTE | 2019-01-08 15:46 | PN ---
Teaching Attending Note Name of Resident: Mandy Mejia ATTENDING PHYSICIAN STATEMENT I saw and evaluated the patient. I reviewed the resident's note and discussed the case with the resident. I agree with the resident's findings and plan as documented. SUBJECTIVE: Mr Scott complains of pain and insomnia. Denies cp, sob, n/v. OBJECTIVE: Last Vital Signs Temp Pulse Resp BP Pulse Ox 38.1 C H 82 20 127/69 94 L 01/08/19 14:00 01/08/19 14:00 01/08/19 09:00 01/08/19 14:00 01/08/19 11:32 Gen: nad Pulm: ctab w/o w/r/r CV: rrr w/o m/r/g Abd: +bs, s/nt/nd Ext: no c/c/e CBC, BMP 01/08/19 06:48 01/08/19 06:48 Mr Scott is a 68 year old male who comes in after a fall and was found to have a femur fracture on CT scan. He was admitted to the hospital and seen by orthopedic surgery. He was seen by cardiology and optimized. His plavix was held and he underwent surgical repair. He tolerated this well. He is currently medically stable for discharge to SNF. Problem List - Problems (1) Fracture of femoral neck, left Code(s): S72.002A - FRACTURE OF UNSP PART OF NECK OF LEFT FEMUR, INIT Qualifiers: Encounter type: initial encounter Fracture type: closed Qualified Code(s) : S72.002A - Fracture of unspecified part of neck of left femur, initial encounter for closed fracture (2) Fall Code(s): W19.XXXA - UNSPECIFIED FALL, INITIAL ENCOUNTER Qualifiers: (3) Chronic respiratory failure Code(s): J96.10 - CHRONIC RESPIRATORY FAILURE, UNSP W HYPOXIA OR HYPERCAPNIA Qualifiers: (4) CAD (coronary artery disease) Code(s): I25.10 - ATHSCL HEART DISEASE OF [place] CORONARY ARTERY W/O ANG PCTRS Qualifiers: [place] vs. transplanted heart: [place] heart Associated angina: without angina (5) CKD (chronic kidney disease) Code(s): N18.9 - CHRONIC KIDNEY DISEASE, UNSPECIFIED Qualifiers: Chronic kidney disease stage: stage 2 (mild) Qualified Code(s): N18.2 - Chronic kidney disease, stage 2 (mild) (6) COPD (chronic obstructive pulmonary disease) Code(s): J44.9 - CHRONIC OBSTRUCTIVE PULMONARY DISEASE, UNSPECIFIED (7) Congestive heart failure (CHF) Code(s): I50.9 - HEART FAILURE, UNSPECIFIED (8) Diabetes mellitus Code(s): E11.9 - TYPE 2 DIABETES MELLITUS WITHOUT COMPLICATIONS Qualifiers: Diabetes mellitus type: type 2 Diabetes mellitus [employer] insulin use: with detention use Diabetes mellitus complication status: with circulatory complication Diabetes mellitus complication detail: with peripheral angiopathy with gangrene Qualified Code(s): E11.52 - Type 2 diabetes mellitus with diabetic peripheral angiopathy with gangrene (9) Hyperlipidemia Code(s): E78.5 - HYPERLIPIDEMIA, UNSPECIFIED (10) Hypertension Code(s): I10 - ESSENTIAL (PRIMARY) HYPERTENSION Qualifiers: Hypertension type: essential hypertension Qualified Code(s): I10 - Essential (primary) hypertension
--- NOTE | 2019-01-08 16:35 | PN ---
Progress Note (short form) - Note Progress Note: still with hip pain but better dressing clean NVID POD#2 -oob/PT/TTWB -dispo planning -F/u in office 2 weeks.
--- NOTE | 2019-01-08 17:39 | DS ---
Physical Exam: SUBJECTIVE: Patient seen and examined ;pain better controlled with increased medications; able to walk 40feet with roller as per PT. OBJECTIVE: Vital Signs Period Temp Pulse Resp BP Sys/Chandra Pulse Ox Last 24 Hr 98.9 F-100.5 F 79-94 20-20 127-146/69-85 94-97 PHYSICAL EXAM GENERAL: The patient is awake, alert, and fully oriented LUNGS: Breath sounds equal, clear to auscultation bilaterally, no wheezes, no crackles, no accessory muscle use. HEART: Regular rate and rhythm, S1, S2 without murmur, rub or gallop. ABDOMEN: Soft, nontender, nondistended, normoactive bowel sounds, no guarding, no rebound, no hepatosplenomegaly, no masses. EXTREMITIES: 2+ pulses, warm, well-perfused, no edema. LLE able to lift off bed; bend knee almost 90 degrees NEUROLOGICAL: Cranial nerves II through XII grossly intact. Normal speech, gait not observed. LABS Laboratory Results - last 24 hr 01/07/19 01/08/19 01/08/19 21:59 06:19 06:48 WBC 11.6 H RBC 3.05 L Hgb 10.0 L Hct 31.4 L MCV 102.7 H MCH 32.7 MCHC 31.9 L RDW 18.2 H Plt Count 260 MPV 8.5 Absolute Neuts (auto) 9.4 H Neutrophils % 81.0 Neutrophils % (Manual) 80.0 Band Neutrophils % 0.0 Lymphocytes % 7.7 L D Lymphocytes % (Manual) 4.0 L D Monocytes % 9.7 Monocytes % (Manual) 10 Eosinophils % 0.9 D Eosinophils % (Manual) 1.0 D Basophils % 0.7 Basophils % (Manual) 0.0 Myelocytes % (Man) 4 H D Promyelocytes % (Man) 0 Blast Cells % (Manual) 0 Nucleated RBC % 0 Metamyelocytes 1 Hypochromia 1+ Platelet Estimate Normal Polychromasia 1+ Poikilocytosis 1+ Anisocytosis 1+ Microcytosis 0 Macrocytosis 1+ Tear Drop Cells 1+ Ovalocytes 1+ Retic Count Sodium Potassium Chloride Carbon Dioxide Anion Gap BUN Creatinine Creat Clearance w eGFR POC Glucometer 132 145 Random Glucose Hemoglobin A1c % Calcium Phosphorus Magnesium Ferritin GGT LD Total Albumin Vitamin B12 Serum Folate TSH 01/08/19 01/08/19 01/08/19 06:48 06:48 06:48 WBC RBC Hgb Hct MCV MCH MCHC RDW Plt Count MPV Absolute Neuts (auto) Neutrophils % Neutrophils % (Manual) Band Neutrophils % Lymphocytes % Lymphocytes % (Manual) Monocytes % Monocytes % (Manual) Eosinophils % Eosinophils % (Manual) Basophils % Basophils % (Manual) Myelocytes % (Man) Promyelocytes % (Man) Blast Cells % (Manual) Nucleated RBC % Metamyelocytes Hypochromia Platelet Estimate Polychromasia Poikilocytosis Anisocytosis Microcytosis Macrocytosis Tear Drop Cells Ovalocytes Retic Count Sodium 142 Potassium 3.5 Chloride 106 Carbon Dioxide 29 Anion Gap 7 L BUN 7 Creatinine 1.1 Creat Clearance w eGFR > 60 POC Glucometer Random Glucose 124 H Hemoglobin A1c % 6.5 H Calcium 7.4 L Phosphorus 1.8 L Magnesium 1.5 L Ferritin 128.7 GGT 89 H LD Total 222 Albumin 2.1 L Vitamin B12 560 Serum Folate 4 TSH 0.21 L D 01/08/19 01/08/19 01/08/19 06:48 06:48 11:35 WBC RBC Hgb Hct MCV MCH MCHC RDW Plt Count MPV Absolute Neuts (auto) Neutrophils % Neutrophils % (Manual) Band Neutrophils % Lymphocytes % Lymphocytes % (Manual) Monocytes % Monocytes % (Manual) Eosinophils % Eosinophils % (Manual) Basophils % Basophils % (Manual) Myelocytes % (Man) Promyelocytes % (Man) Blast Cells % (Manual) Nucleated RBC % Metamyelocytes Hypochromia Platelet Estimate Polychromasia Poikilocytosis Anisocytosis Microcytosis Macrocytosis Tear Drop Cells Ovalocytes Retic Count 0.99 Sodium Potassium Chloride Carbon Dioxide Anion Gap BUN Creatinine Creat Clearance w eGFR POC Glucometer 118 Random Glucose Hemoglobin A1c % Calcium Phosphorus Magnesium Ferritin GGT Cancelled LD Total Albumin Vitamin B12 Serum Folate TSH HOSPITAL COURSE: Date of Admission:01/03/19 Date of Discharge: 01/08/19 This is a 68 year old male with a medical history CVA, HTN, IDDM, CHF, CAD, COPD , CKD who was admitted for for left femoral fracture, POD #2 for cannulated screw placement for left impacted femoral neck. Pain medications were adjusted similar to his home regimen, able to walk with PT 40 feet. Restarted on asa/ plavix for hx of CAD. WIll f/u with ortho in 2 weeks. Minutes to complete discharge: 40 Discharge Summary Reason For Visit: WEAKNESS,UBABLE TO WALK,FRACTURE OF NECK OF LEFT Current Active Problems Chronic respiratory failure (Acute) Fall (Acute) Fracture of femoral neck, left (Acute) Inability to ambulate due to hip (Acute) Nondisplaced fracture of base of neck of left femur, initial encounter for closed fracture (Acute) Weakness (Acute) Condition: Fair - Instructions Diet, Activity, Other Instructions: Mr. Scott, you have been treated for a hip fracture. You will be going to a [facility]pc facility for rehabilitation. 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 Recommend following up with a information systems security developer due to your long smoking history. Please be advised when taking pain medications, this can cause lethargy, mental and respiratory depression. Do not try and walk on your own without assistance until you are cleared by rehab facility. Referrals: Zachariah Wilkinson MD [Staff Physician] - Lucrecia Moore MD [Staff Physician] - Vin Isbell MD [Primary Care Provider] - Disposition: [facility] - Home Medications Comprehensive Discharge Medication List: Ambulatory Orders Aspirin [Ecotrin] 81 mg PO DAILY 04/29/15 Pregabalin [Lyrica] 50 mg PO BID 03/13/17 Isosorbide Mononitrate [Isosorbide Mononitrate ER] 30 mg PO DAILY 06/04/17 Acetaminophen [Tylenol .Regular Strength -] 650 mg PO Q4H PRN #90 tablet Albuterol 0.083% Nebulizer Clarisse [Ventolin 0.083% Nebulizer Soln -] 1 neb NEB QID PRN 10/04/17 Amlodipine Besylate [Norvasc -] 5 mg PO DAILY #30 tablet 10/09/17 Clopidogrel Bisulfate [Plavix -] 75 mg PO DAILY #30 tablet 10/09/17 Insulin Sliding Scale [Novolog Vial Sliding Scale -] See Protocol SQ TID Atorvastatin Ca [Lipitor] 40 mg PO HS 10/29/18 Budesonide/Formeterol Fumarate [SYMBICORT 160/4.5mcg -] 2 puff IH BID 10/29/18 Carvedilol [Coreg] 6.25 mg PO BID 10/29/18 Fluticasone/Salmeterol [Advair Hfa 115-21 Mcg Inhaler] 2 puff IH BID 10/29/18 Hydralazine HCl 10 mg PO BID 10/29/18 Sodium Bicarbonate - 650 mg PO DAILY 10/29/18 Zolpidem Tartrate [Ambien] 10 mg PO HS 10/29/18 Furosemide [Lasix -] 80 mg PO DAILY tablet 10/31/18 Lansoprazole [Prevacid] 30 mg PO HS 01/04/19 oxyCODONE HCL [Roxicodone -] 10 mg PO Q4H PRN 7 Days #42 tablet MDD 60 01/08/19 oxyCODONE HCL [Roxicodone -] 20 mg PO Q4H PRN 7 Days #42 tablet MDD 100mg This patient is new to me today: Yes Date on this admission: 01/08/19 Emergency Visit: No Critical Care patient: No - Discharge Referral Referred to [facility] No
[2019-01-08 20:21] VITALS: BP 152/76; PULSE 73; TEMP 99.5
[2019-01-09 08:06] LABS: SERUM IRON SATURATION 15 % (15-55); TOTAL IRON BINDING CAPACITY 143 ug/dL (250-450); UIBC 121 ug/dL (111-343)
== END 2019-01-08 20:20 | DRG 481 ==
LOC: JER 12:56 → JERBED 19:27 → J6S 21:40 → JICU 01-06 13:13 → J4W 01-07 18:57
PROVIDERS: ADMIT Internal Medicine; ATTEND Internal Medicine
PROC: 0QS704Z Reposition Left Upper Femur with Internal Fixation Device, Open Approach (ICD-10-PCS; principal; 2019-01-06 08:00)
DX: S72.002A Fracture of unspecified part of neck of left femur, initial encounter for closed fracture (principal); J96.10 Chronic respiratory failure, unspecified whether with hypoxia or hypercapnia; I50.22 Chronic systolic (congestive) heart failure; N17.9 Acute kidney failure, unspecified; I13.0 Hypertensive heart and chronic kidney disease with heart failure and stage 1 through stage 4 chronic kidney disease, or unspecified chronic kidney disease; I25.10 Atherosclerotic heart disease of native coronary artery without angina pectoris; J44.9 Chronic obstructive pulmonary disease, unspecified; E16.0 Drug-induced hypoglycemia without coma; E78.5 Hyperlipidemia, unspecified; K21.9 Gastro-esophageal reflux disease without esophagitis; E11.42 Type 2 diabetes mellitus with diabetic polyneuropathy; N18.2 Chronic kidney disease, stage 2 (mild); Z79.4 Long term (current) use of insulin; I25.5 Ischemic cardiomyopathy; Z98.61 Coronary angioplasty status; W19.XXXA Unspecified fall, initial encounter; Y93.9 Activity, unspecified; Y92.89 Other specified places as the place of occurrence of the external cause; Y99.9 Unspecified external cause status; E11.22 Type 2 diabetes mellitus with diabetic chronic kidney disease
CPT/HCPCS: 36415; 36600; 70450-TC; 71045-TC-FY; 72125-TC; 72192-TC; 73523-TC-FY; 73552-TC-LT-FY; 73590-TC-LT-FY; 76000-TC-FY; 80048; 80053; 81003; 81015; 82040; 82550; 82607; 82728; 82746; 82803; 82962; 82977; 83036; 83540; 83550; 83615; 83735; 84100; 84443; 84484; 85025; 85044; 85610; 86850; 86900; 86901; 87081; 87086; 93005; 93010; 94760; 97116-GP; 97161-GP; 99283-25; J0131; J1644; J7030

== ENCOUNTER 2019-04-15 11:01 | Inpatient (IN) | payer OTHER ==
[2019-04-15 12:03] LABS: VENOUS PC02 56.2 mmHg (41-51); VENOUS PH 7.36 (7.31-7.41); VENOUS PO2 35.7 mmHg (30-40)
[2019-04-15 12:07] LABS: HEMATOCRIT 34.3 % (35.4-49); HEMOGLOBIN 10.4 GM/dL (11.7-16.9); MCH 26.1 pg (25.7-33.7); WHITE BLOOD COUNT 18.1 K/mm3 (4.0-10.0)
[2019-04-15 12:21] LABS: BASO % 0.8 % (0-2.0); EOS % 0.7 % (0-4.5); LYMPH % 4.5 % (8-40); MCHC 30.4 g/dl (32.0-35.9); MEAN CELL VOLUME 85.7 fl (80-96); MEAN PLT VOLUME 10.2 fl (7.5-11.1); MONO % 7.2 % (3.8-10.2); NEUT % 86.8 % (42.8-82.8); RDW 17.8 % (11.9-15.9)
[2019-04-15 12:22] LABS: PLATELET COUNT 245 K/MM3 (134-434)
[2019-04-15 12:27] LABS: INR 2.46 (0.83-1.09); PROTHROMBIN TIME (PATIENT) 29.3 SEC (9.7-13.0)
[2019-04-15 12:30] LABS: ACTIVATED PTT 37.9 SECONDS (25.2-36.5)
[2019-04-15 12:38] LABS: ALBUMIN 2.7 g/dl (3.4-5.0); BILIRUBIN,TOTAL 0.3 mg/dL (0.2-1); BLOOD UREA NITROGEN 33.5 mg/dL (7-18); TOT PROT 6.1 g/dl (6.4-8.2)
[2019-04-15 12:44] LABS: EPI CELLS 0.2 /HPF (0-5/HPF); HYALINE CASTS 0 /lpf (0-8); PH,URINE 5.5 (5.0-8.0); URINE APPEARANCE CLEAR; URINE BACTERIA 0.7 /hpf (NEGATIVE); URINE BILIRUBIN NEGATIVE (NEGATIVE); URINE COLOR YELLOW; URINE GLUCOSE (UA) NEGATIVE (NEGATIVE); URINE KETONE NEGATIVE (NEGATIVE); URINE LEUK ESTERASE NEGATIVE (NEGATIVE); URINE NITRITE NEGATIVE (NEGATIVE); URINE PROTEIN NEGATIVE (NEGATIVE); URINE RBC 13 /hpf (0-4); URINE UROBILINOGEN 0.2 mg/dL (0.2-1.0); URINE WBC 1 /hpf (0-5)
[2019-04-15] MEDS ORDERED: FUROSEMIDE 40 MG/4 ML INJECTABLE VIAL IVPUSH ONE (13:14)
[2019-04-15] MEDS ORDERED: FUROSEMIDE 40 MG/4 ML INJECTABLE VIAL ONE (13:16)
--- NOTE | 2019-04-15 13:19 | PDOC ---
Documentation entered by Sharifa Edward SCRIBE, acting as scribe for Jeferson Guillen MD. Jeferson uGillen MD: This documentation has been prepared by the scribe, Sharifa Edward SCRIBE, under my direction and personally reviewed by me in its entirety. I confirm that the documentation accurately reflects all work, treatment, procedures, and medical decision making performed by me. History of Present Illness - General Chief Complaint: Shortness of Breath Stated Complaint: SOB Time Seen by Provider: 04/15/19 11:08 History Source: Patient Exam Limitations: No Limitations - History of Present Illness Initial Comments: 04/15/19 12:13 The patient is a 68-year-old male with PMH of CVA, peripheral neuropathy, IDDM, CHF, HTN, [place] (s/p CABG 1 month ago), HLD, COPD (on 4L O2 at home), GERD, CKD, who presents to the ED with progressively worsening shortness of breath that began at 3AM this morning. The patient states that the shortness of breath woke him out of sleep. The patient was able to fall back to sleep, but reports that he experienced another episode of shortness of breath after eating breakfast this morning. The patient states that he is currently being treated for pneumonia at a rehab center in [place] (sent here s/p CABG). pt was recently dc from rehab on monday. was treated wtih abx while at rehab for pna, had finished his course of abx - no cough, fever/chills. The patient denies fevers, chills, nausea, vomiting, diarrhea, or abdominal pain. Denies any chest pain or palpitations. Denies any weakness, dizziness, or changes in strength or sensation. Allergies: Lanoprazole PCP: Dr. Isbell Past History - Past Medical History Allergies/Adverse Reactions: Allergies Allergy/AdvReac Type Severity Reaction Status Date / Time lansoprazole [From Prevacid] Allergy Intermediate Verified 04/15/19 11:20 Home Medications: Ambulatory Orders Aspirin [Ecotrin] 81 mg PO DAILY 04/29/15 Pregabalin [Lyrica] 50 mg PO BID 03/13/17 Isosorbide Mononitrate [Isosorbide Mononitrate ER] 30 mg PO DAILY 06/04/17 Acetaminophen [Tylenol .Regular Strength -] 650 mg PO Q4H PRN #90 tablet Albuterol 0.083% Nebulizer Clarisse [Ventolin 0.083% Nebulizer Soln -] 1 neb NEB QID PRN 10/04/17 Amlodipine Besylate [Norvasc -] 5 mg PO DAILY #30 tablet 10/09/17 Clopidogrel Bisulfate [Plavix -] 75 mg PO DAILY #30 tablet 10/09/17 Insulin Sliding Scale [Novolog Vial Sliding Scale -] See Protocol SQ TID Atorvastatin Ca [Lipitor] 40 mg PO HS 10/29/18 Budesonide/Formeterol Fumarate [SYMBICORT 160/4.5mcg -] 2 puff IH BID 10/29/18 Carvedilol [Coreg] 6.25 mg PO BID 10/29/18 Fluticasone/Salmeterol [Advair Hfa 115-21 Mcg Inhaler] 2 puff IH BID 10/29/18 Hydralazine HCl 10 mg PO BID 10/29/18 Sodium Bicarbonate - 650 mg PO DAILY 10/29/18 Zolpidem Tartrate [Ambien] 10 mg PO HS 10/29/18 Furosemide [Lasix -] 80 mg PO DAILY tablet 10/31/18 Lansoprazole [Prevacid] 30 mg PO HS 01/04/19 oxyCODONE HCL [Roxicodone -] 10 mg PO Q4H PRN 7 Days #42 tablet MDD 60 01/08/19 oxyCODONE HCL [Roxicodone -] 20 mg PO Q4H PRN 7 Days #42 tablet MDD 100mg Anemia: No Asthma: No Cancer: No Cardiac Disorders: Yes (9 stents, [place], CAD, cardiomyopathy) CVA: Yes (stroke x 2) COPD: Yes CHF: No Dementia: No Diabetes: Yes GI Disorders: Yes (colitis, GERD) Disorders: Yes HTN: Yes Hypercholesterolemia: Yes Kidney Stones: Yes Liver Disease: No Seizures: No Thyroid Disease: No - Surgical History Abdominal Surgery: No Appendectomy: No Cardiac Surgery: Yes (stents x 9) Cholecystectomy: No Lung Surgery: No Neurologic Surgery: No Orthopedic Surgery: No - Immunization History Immunization Up to Date: No - Suicide/Smoking/Psychosocial Hx Smoking Status: No Smoking History: Former smoker Have you smoked in the past 12 months: No Number of Cigarettes Smoked Daily: 30 If you are a former smoker, when did you quit?: 2017 Cigars Per Day: 0 Information on smoking cessation initiated: No 'Breaking Loose' booklet given: 01/12/17 Hx Alcohol Use: No Drug/Substance Use Hx: No Substance Use Type: None Hx Substance Use Treatment: No Review of Systems - Review of Systems Able to Perform ROS?: Yes Comments:: 04/15/19 12:14 No reported: Fever, Chills, Diaphoresis, Generalized Weakness, Malaise, Loss of Appetite HEENT: No reported: Rhinorrhea, Nasal Congestion, Throat Pain, Throat Swelling, Difficulty Swallowing, Mouth Swelling, Ear Pain, Eye Pain, Visual Changes CARDIOVASCULAR: No reported: Chest Pain, Syncope, Palpitations, Irregular Heart Rate, Lightheadedness, Peripheral Edema RESPIRATORY: No reported: (+)Shortness of breath. Cough, SOB with Exertion, Orthopnea, Wheezing, Stridor, Hemoptysis GASTROINTESTINAL: No reported: Abdominal pain, Abdominal Distension, Nausea, Vomiting, Diarrhea, Constipation, Melena, Hematochezia GENITOURINARY: No reported: Dysuria, Frequency, Urgency, Hesitancy, Flank Pain, Genital Pain MUSCULOSKELETAL: No reported: Myalgia, Arthralgia, Joint Swelling, Back pain, Neck Pain SKIN: No reported: Rash, Itching, Pallor HEMEATOLOGIC/IMMUNOLOGIC: No reported: Easy Bleeding, Easy Bruising, Lymphadenopathy, Frequent infections ENDOCRINE: No reported: Unexplained Weight Gain, Unexplained Weight Loss, Heat Intolerance , Cold Intolerance NEUROLOGIC: No reported: Headache, Focal Weakness, Paresthesias, Vertigo, Lightheadedness, Unsteady Gait, Seizure, Mental Status Changes, Incontinence PSYCHIATRIC: No reported: Anxiety, Depression *Physical Exam - Vital Signs Last Vital Signs Temp Pulse Resp BP Pulse Ox 71 30 H 136/78 100 04/15/19 11:04 04/15/19 11:04 04/15/19 11:04 04/15/19 11:05 - Physical Exam Comments: 04/15/19 11:24 GENERAL: The patient is awake, alert, and fully oriented, Nontoxic - in no acute distress. HEAD: Normocephalic, atraumatic. EYES: extraocular movements intact, sclera anicteric, conjunctiva clear. ENT: Normal voice, Moist mucous membranes. NECK: Normal range of motion, supple LUNGS: bibasilar rales R>L, mild resp distress HEART: Regular rate and rhythm, normal S1 and S2 without murmur, rub or gallop. ABDOMEN: Soft, nontender, normoactive bowel sounds. No guarding, no rebound. No CVA tenderness EXTREMITIES: Normal range of motion, no edema. NEUROLOGICAL: No facial assymetry, Normal speech, moving all 4 extremities sponatanouesly and symmetrically PSYCH: Normal mood, normal affect. SKIN: Warm, Dry, normal turgor, midline sternotomy scar that is healing, non erythemadous/indurated Heart Score/ECG Review - ECG Impressions Comment:: 04/15/19 11:27 Twelve-lead EKG was performed and reviewed by me. rate of 69 atrial sensed pm appropriate discordance no signs of STEMI via sgarbossa criteria ED Treatment Course - LABORATORY CBC & Chemistry Diagram: 04/15/19 11:36 04/15/19 11:36 - RADIOLOGY Radiology Studies Ordered: Category Date Time Status CHEST X-RAY PORTABLE* [RAD] Stat Radiology 04/15/19 11:22 Ordered Medical Decision Making - Medical Decision Making 04/15/19 11:25 69y M hx of cva, peripheral neuropathy, IDDM, CHF, copd (on 4L of [place] at baseline ), htn, mi (s/p CABG ~1 month ago), ckd, presents for evaluation of shortness of breath - states he had an episode of shortness of breath overnight that got better and recurred again after breakfast this morning without any associated fever, chills, increased coughing, chest pain, lightheadedness, palpitations. On exam the patient did have rales at the bases right greater than left He is in mild respiratory distress, current saturation is 100% on a nonrebreather Currently being treated for pneumonia at rehabilitation per the patient Differential for the patient's symptoms includes possible pneumonia, CHF, ACS, COPD exacerbation We'll obtain blood work, VBG, BMP, chest x-ray Will reassess 04/15/19 13:13 lbas reviewed wbc of 18 - however w/o cough/fever, low suspcion for pna cxr noted for congestion, bnp elevatd suspect his sx secondary to chf case jose negron agree with admission for further mangaement Case discussed in detail with admitting physician including history, physical exam and ancillary studies. Admitting physician has assumed care for the patient, will follow all pending diagnostics and will complete the evaluation and treatment. *DC/Admit/Observation/Transfer Diagnosis at time of Disposition: CHF (congestive heart failure) Qualifiers: Heart failure type: other Qualified Code(s): I50.9 - Heart failure, unspecified - Discharge Dispostion Condition at time of disposition: Stable Decision to Admit order: Yes - Referrals Referrals: Vin Isbell MD [Primary Care Provider] - - Patient Instructions - Post Discharge Activity
[2019-04-15 14:22] LABS: ANISOCYTOSIS 2+; MACROCYTOSIS 0; OVALOCYTE 1+; PLATELET ESTIMATE NORMAL
--- NOTE | 2019-04-15 15:14 | EKG ---
Test Reason : Blood Pressure : / mmHG Vent. Rate : 069 BPM Atrial Rate : 069 BPM P-R Int : 186 ms QRS Dur : 174 ms QT Int : 478 ms P-R-T Axes : 034 -81 100 degrees QTc Int : 512 ms Atrial-sensed ventricular-paced rhythm WITH OCCASIONAL PREMATURE VENTRICULAR COMPLEXES ABNORMAL ECG WHEN COMPARED WITH ECG OF 03-JAN-2019 20:52, ELECTRONIC VENTRICULAR PACEMAKER HAS REPLACED SINUS RHYTHM Confirmed by ROSALIND BRADLEY, ELISABET ([id number]) on 04/15/2019 3:14:10 PM Referred By: Confirmed By:ELISABET BOYER MD
[2019-04-15] MEDS ORDERED: PATIENT'S OWN MEDICATION (NON-FORMULARY) (Oxycodone Hcl [Oxycodone Hcl] 10 MG) PO SCH (15:30)
[2019-04-15] MEDS ORDERED: ACETAMINOPHEN 325 MG TABLET (FP) PO PRN (15:33)
--- NOTE | 2019-04-15 15:44 | HP ---
Admitting History and Physical - Primary Care Physician PCP: Vin Isbell - Admission Chief Complaint: I'm having trouble breathing History of Present Illness: Mr Scott is a 69 year old male who comes in with difficulty breathing. He was here back in December and was discharged [facility]. While there he went into heart failure and was sent to [facility] where he underwent a 4v CABG. He also had atrial fibrillation and a pacemaker was placed. He was transferred to the [facility] for rehabilitation. There he did well and with diuresis lost about 15lbs. He was discharged last Monday, and followed up with Dr Moore last week and was doing well. Yesterday he had a Father's Day barbecue where he ate a hot dog and a bowl of boxed macaroni and cheese. After that he became short of breath. It was both on exertion and rest. He also had a non-productive cough with it as well. He tried to manage this by adjusting his home oxygen but remained short of breath. Because of that he comes in. He only complains of shortness of breath and dry coughing. He denies fevers, chills, lightheadedness , dizziness, passing out, chest pain or pressure, nausea, vomiting, diarrhea, constipation, difficulty or pain on urination, or swelling. 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 Cardiovascular: Yes: CHF, HTN, Hyperlipdemia, Hyperlipdemia, [place] Pulmonary: Yes: COPD, O2 Dependent, Pneumonia, Previously Intubated Gastrointestinal: Yes: Other, GERD, Other Renal/: Yes: Renal Inusuff, Other Infectious Disease: Yes: MRSA Psych: Yes: Addictions Musculoskeletal: Yes: Other, Other Endocrine: Yes: Diabetes Mellitus - Past Surgical History Past Surgical History: Yes: CABG (4v), Permanent Pacemaker, Stent (PCIX5) - Smoking History Smoking history: Former smoker Have you smoked in the past 12 months: No Aproximately how many cigarettes per day: 30 If you are a former smoker, when did you quit?: 2017 - Alcohol/Substance Use Hx Alcohol Use: No History of Substance Use: reports: None - Social History Usual Living Arrangement: Yes: With Spouse ADL: Family Assistance History of Recent Travel: No Home Medications - Allergies Allergies/Adverse Reactions: Allergies Allergy/AdvReac Type Severity Reaction Status Date / Time No Known Allergies Allergy Verified 04/15/19 13:55 - Home Medications Home Medications: Ambulatory Orders Ferrous Sulfate [Feosol] 325 mg PO DAILY 04/15/19 Fluticasone Propionate 16 gm NS DAILY 04/15/19 Folic Acid - 1 mg PO DAILY 04/15/19 Furosemide [Lasix -] 40 mg PO BID 04/15/19 Insulin (LOG) Aspart [NovoLOG -] 0 units SQ ASDIR 04/15/19 Lansoprazole [Prevacid -] 30 mg PO DAILY 04/15/19 Metoprolol Tartrate [Lopressor -] 25 mg PO BID 04/15/19 Oxycodone HCl 10 mg PO Q4H 04/15/19 Potassium Chloride [K-Dur -] 10 meq PO DAILY 04/15/19 Pregabalin [Lyrica -] 75 mg PO TID 04/15/19 Rosuvastatin [Crestor -] 20 mg PO DAILY 04/15/19 Tamsulosin HCl [Flomax] 0.4 mg PO DAILY 04/15/19 Warfarin Na [Coumadin] 5 mg PO DAILY@1800 04/15/19 Family Disease History - Family Disease History Family Disease History: Diabetes: Grandparent, Father, Mother (CVA, COPD), Sister (COPD), Heart Disease: Mother, CA: Father, Respiratory: Mother, Sister, Other: Mother Review of Systems Findings/Remarks: Full review of system obtained, as per HPI and otherwise negative. Physical Examination Vital Signs: Vital Signs Temperature 37.6 C 04/15/19 12:18 Pulse Rate 70 04/15/19 15:33 Respiratory Rate 22 H 04/15/19 15:33 Blood Pressure 138/72 04/15/19 15:33 O2 Sat by Pulse Oximetry (%) 98 04/15/19 15:33 Constitutional: Yes: Well Nourished, No Distress, Calm Eyes: Yes: Conjunctiva Clear, EOM Intact, PERRL HENT: Yes: Atraumatic, Normocephalic Cardiovascular: Yes: Pulse Irregular. No: Tachycardia, Gallop, Murmur, Rub Respiratory: Yes: Regular, On Nasal O2, Rales. No: CTA Bilaterally, Rhonchi, Wheezes Gastrointestinal: Yes: Normal Bowel Sounds, Soft. No: Distention, Tenderness Extremities: Yes: WNL Edema: No Labs: CBC, BMP 04/15/19 11:36 04/15/19 11:36 Imaging - Results Chest X-ray: Report Reviewed, Image Reviewed EKG: Image Reviewed Problem List - Problems (1) Congestive heart failure (CHF) Assessment/Plan: -secondary to dietary indiscretion over the weekend -admit to telemetry -case d/w Dr Moore -lasix 40mg IV bid -monitor for improvement Code(s): I50.9 - HEART FAILURE, UNSPECIFIED Qualifiers: Heart failure type: other Qualified Code(s): I50.9 - Heart failure, unspecified (2) Acute respiratory failure Assessment/Plan: -secondary to CHF exacerbation -diuresis -oxygen support Code(s): J96.00 - ACUTE RESPIRATORY FAILURE, UNSP W HYPOXIA OR HYPERCAPNIA (3) CAD (coronary artery disease) Assessment/Plan: -s/p recent 4v CABG -continue home regimen -no chest pain or signs of ACS Code(s): I25.10 - ATHSCL HEART DISEASE OF [place] CORONARY ARTERY W/O ANG PCTRS Qualifiers: [place] vs. transplanted heart: lime heart Associated angina: without angina (4) CKD (chronic kidney disease) Assessment/Plan: -at baseline Code(s): N18.9 - CHRONIC KIDNEY DISEASE, UNSPECIFIED Qualifiers: Chronic kidney disease stage: stage 2 (mild) Qualified Code(s): N18.2 - Chronic kidney disease, stage 2 (mild) (5) Chronic respiratory failure Assessment/Plan: -on home oxygen Code(s): J96.10 - CHRONIC RESPIRATORY FAILURE, UNSP W HYPOXIA OR HYPERCAPNIA Qualifiers: (6) Diabetes mellitus Assessment/Plan: -diabetic diet -FSBS and SSI Code(s): E11.9 - TYPE 2 DIABETES MELLITUS WITHOUT COMPLICATIONS Qualifiers: Diabetes mellitus type: type 2 Diabetes 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 use: with group home use Diabetes mellitus complication status: with circulatory complication Diabetes mellitus complication detail: with peripheral angiopathy with gangrene Qualified Code(s): E11.52 - Type 2 diabetes mellitus with diabetic peripheral angiopathy with gangrene (7) Hyperlipidemia Assessment/Plan: -continue statin Code(s): E78.5 - HYPERLIPIDEMIA, UNSPECIFIED (8) Hypertension Assessment/Plan: -continue home regimen -monitor Code(s): I10 - ESSENTIAL (PRIMARY) HYPERTENSION Qualifiers: Hypertension type: essential hypertension Qualified Code(s): I10 - Essential (primary) hypertension
--- NOTE | 2019-04-15 15:45 | CON.CARD ---
Cardiology Consult (text) - Consultation Consultation Note: Chief Complaint: shortness of breath History of Present Illness: 69M h/o dm, ckd (1.5-2), CVA 10/2014, CAD s/p STEMI and multiple pci's, s/p CABG 02/2019, s/p PPM, ischemic CM with systolic chf, COPD, extensive smoking history (quit 12/2016) here with shortness of breath. Sees me for cardio. Was at rehab until last Monday, this weekend ate hot dogs, macaroni and cheese. Had worsening dyspnea overnight, came to ER. Last week was diagnosed with PNA at rehab, took abx for 3 days, at that time was also short of breath. No cp palps dizzy pnd orthopnea le edema. - Past Medical History HOUSE FELLOW: Yes: CVA, Peripheral Neuropathy Cardio/Vascular: Yes: CHF, HTN, Hyperlipdemia. No: AFIB Pulmonary: Yes: COPD Gastrointestinal: Yes: Other (Colitis) Renal/: Yes: Renal Inusuff, Other (hyperkalemia) Psych: Yes: Addictions Musculoskeletal: Yes: Other (Lumbar radiculopathy) Endocrine: Yes: Diabetes Mellitus - Past Surgical History Past Surgical History: Yes: Stent, CABG, PPM - Alcohol/Substance Use Hx Alcohol Use: No History of Substance Use: reports: None - Smoking History Smoking history: ex tob - Social History Usual Living Arrangement: With Spouse ADL: Independent History of Recent Travel: No Home Medications - Allergies Allergies/Adverse Reactions: Allergies Allergy/AdvReac Type Severity Reaction Status Date / Time No Known Allergies Allergy Verified 04/15/19 13:55 - Home Medications Ambulatory Orders Ferrous Sulfate [Feosol] 325 mg PO DAILY 04/15/19 Fluticasone Propionate 16 gm NS DAILY 04/15/19 Folic Acid - 1 mg PO DAILY 04/15/19 Furosemide [Lasix -] 40 mg PO BID 04/15/19 Insulin (LOG) Aspart [NovoLOG -] 0 units SQ ASDIR 04/15/19 Lansoprazole [Prevacid -] 30 mg PO DAILY 04/15/19 Metoprolol Tartrate [Lopressor -] 25 mg PO BID 04/15/19 Oxycodone HCl 10 mg PO Q4H 04/15/19 Potassium Chloride [K-Dur -] 10 meq PO DAILY 04/15/19 Pregabalin [Lyrica -] 75 mg PO TID 04/15/19 Rosuvastatin [Crestor -] 20 mg PO DAILY 04/15/19 Tamsulosin HCl [Flomax] 0.4 mg PO DAILY 04/15/19 Warfarin Na [Coumadin] 5 mg PO DAILY@1800 04/15/19 Family Disease History - Family Disease History Family Disease History: Diabetes: Grandparent, Sister (COPD), CA: Father, Respiratory: Sister, Other: Mother (CVA) Review of Systems - Review of Systems per hpi; no nvd, salas, vision changes, gib, hematuria, dysuria, muscle pain Physical Exam Vital Signs: Vital Signs Period Temp Pulse Resp BP Sys/Chandra Pulse Ox Last 24 Hr 99.6 F 70-71 22-30 136-138/72-78 98-100 nad no jvd rrr s1s2 no mrg cta bl rales at bases, diffuse rhonchi aaox3 no le e/c/c abd nt nd pos bs no jaundice diaphoresis pos dp pt no carotid bruits Laboratory Last Values WBC 18.1 K/mm3 (4.0-10.0) H 04/15/19 11:36 RBC 4.00 M/mm3 (4.00-5.60) 04/15/19 11:36 Hgb 10.4 GM/dL (11.7-16.9) L 04/15/19 11:36 Hct 34.3 % (35.4-49) L 04/15/19 11:36 MCV 85.7 fl (80-96) 04/15/19 11:36 MCH 26.1 pg (25.7-33.7) D 04/15/19 11:36 MCHC 30.4 g/dl (32.0-35.9) L 04/15/19 11:36 RDW 17.8 % (11.9-15.9) H 04/15/19 11:36 Plt Count 245 K/MM3 (134-434) 04/15/19 11:36 MPV 10.2 fl (7.5-11.1) D 04/15/19 11:36 Absolute Neuts (auto) 15.7 K/mm3 (1.5-8.0) H 04/15/19 11:36 Neutrophils % 86.8 % (42.8-82.8) H 04/15/19 11:36 Neutrophils % (Manual) 84.0 % (42.8-82.8) H 04/15/19 11:36 Band Neutrophils % 1.0 % 04/15/19 11:36 Lymphocytes % 4.5 % (8-40) L D 04/15/19 11:36 Lymphocytes % (Manual) 4.0 % (8-40) L 04/15/19 11:36 Monocytes % 7.2 % (3.8-10.2) 04/15/19 11:36 Monocytes % (Manual) 7 % (3.8-10.2) 04/15/19 11:36 Eosinophils % 0.7 % (0-4.5) 04/15/19 11:36 Eosinophils % (Manual) 0.0 % (0-4.5) D 04/15/19 11:36 Basophils % 0.8 % (0-2.0) 04/15/19 11:36 Basophils % (Manual) 0.0 % (0-2.0) 04/15/19 11:36 Myelocytes % (Man) 0 % (0-2) D 04/15/19 11:36 Promyelocytes % (Man) 0 % (0-2) 04/15/19 11:36 Blast Cells % (Manual) 0 % (0-0) 04/15/19 11:36 Nucleated RBC % 0 % (0-0) 04/15/19 11:36 Metamyelocytes 0 % (0-2) D 04/15/19 11:36 Hypochromia 0 04/15/19 11:36 Platelet Estimate Normal 04/15/19 11:36 Polychromasia 2+ 04/15/19 11:36 Poikilocytosis 1+ 04/15/19 11:36 Basophilic Stippling 1+ 04/15/19 11:36 Anisocytosis 2+ 04/15/19 11:36 Microcytosis 1+ 04/15/19 11:36 Macrocytosis 0 04/15/19 11:36 Spherocytes 1+ 04/15/19 11:36 Ovalocytes 1+ 04/15/19 11:36 Acanthocytes (Spur) 1+ 04/15/19 11:36 PT with INR 29.30 SEC (9.7-13.0) H 04/15/19 11:36 INR 2.46 (0.83-1.09) H 04/15/19 11:36 PTT (Actin FS) 37.9 SECONDS (25.2-36.5) H 04/15/19 11:36 VBG pH 7.36 (7.31-7.41) 04/15/19 11:36 POC VBG pCO2 56.2 mmHg (41-51) H 04/15/19 11:36 POC VBG pO2 35.7 mmHg (30-40) 04/15/19 11:36 VBG HCO3 30.7 mmol/L (23-29) H 04/15/19 11:36 VBG O2 Sat (Radha) 60.8 % (70-80) L 04/15/19 11:36 VBG Base Excess 4.6 meq/l (-2-2) H 04/15/19 11:36 Sodium 144 mmol/L (136-145) 04/15/19 11:36 Potassium 4.0 mmol/L (3.5-5.1) 04/15/19 11:36 Chloride 107 mmol/L (98-107) 04/15/19 11:36 Carbon Dioxide 34 mmol/L (21-32) H 04/15/19 11:36 Anion Gap 3 MMOL/L (8-16) L 04/15/19 11:36 BUN 33.5 mg/dL (7-18) H 04/15/19 11:36 Creatinine 1.0 mg/dL (0.55-1.3) 04/15/19 11:36 Est GFR (CKD-EPI)AfAm 87.37 04/15/19 11:36 Est GFR (CKD-EPI)NonAf 75.39 04/15/19 11:36 Random Glucose 225 mg/dL (74-106) H 04/15/19 11:36 Lactic Acid 1.0 mmol/L (0.4-2.0) 04/15/19 11:37 Calcium 8.0 mg/dL (8.5-10.1) L 04/15/19 11:36 Total Bilirubin 0.3 mg/dL (0.2-1) 04/15/19 11:36 AST 15 U/L (15-37) 04/15/19 11:36 ALT 20 U/L (13-61) 04/15/19 11:36 Alkaline Phosphatase 93 U/L (45-117) 04/15/19 11:36 Troponin I 0.04 ng/ml (0.00-0.05) 04/15/19 11:36 B-Natriuretic Peptide 65320.1 pg/ml (5-125) H 04/15/19 11:36 Total Protein 6.1 g/dl (6.4-8.2) L 04/15/19 11:36 Albumin 2.7 g/dl (3.4-5.0) L 04/15/19 11:36 Urine Color Yellow 04/15/19 12:07 Urine Appearance Clear 04/15/19 12:07 Urine pH 5.5 (5.0-8.0) 04/15/19 12:07 Ur Specific [place] 1.008 (1.010-1.035) L 04/15/19 12:07 Urine Protein Negative (NEGATIVE) 04/15/19 12:07 Urine Glucose (UA) Negative (NEGATIVE) 04/15/19 12:07 Urine Ketones Negative (NEGATIVE) 04/15/19 12:07 Urine Blood 1+ (NEGATIVE) H 04/15/19 12:07 Urine Nitrite Negative (NEGATIVE) 04/15/19 12:07 Urine Bilirubin Negative (NEGATIVE) 04/15/19 12:07 Urine Urobilinogen 0.2 mg/dL (0.2-1.0) 04/15/19 12:07 Ur Leukocyte Esterase Negative (NEGATIVE) 04/15/19 12:07 Urine WBC (Auto) 1 /hpf (0-5) 04/15/19 12:07 Urine RBC (Auto) 13 /hpf (0-4) 04/15/19 12:07 Urine Casts (Auto) 0 /lpf (0-8) 04/15/19 12:07 U Epithel Cells (Auto) 0.2 /HPF (0-5/HPF) 04/15/19 12:07 Urine Bacteria (Auto) 0.7 /hpf (NEGATIVE) 04/15/19 12:07 ecg: a paced, V paced, PVC LHC 05/15: 70-80% mRCA (ISR), 70-80% RPDA (ISR); 70-80% mLAD; 80-90% pLCX (small vessel); 90-95% OM2 (large vessel); 80-90% prox Ramus (large vessel) ...nonobstructive dz of note [id number]% ostial RCA, 50-60% eccentric lesion OM1 (large vessel); EDP 30-->25 post-nitro EF 38% (diffuse WMAs) Syntax score 20 Echo 10/29/18: mod LVE, mild global LV hypo (45-50%). RV tds. mild TR. no vegetations noted Echo 05/15: mod to sev decr LVEF; severe hypokinesis of all [place] except basal segments. nl RV. mild MR/TR. no peric eff. Echo 01/2017: mild global HK, lvef 45-50, nl rv, nl rvsp, mild lae, mild tr a/p: 69M h/o dm, ckd (1.5-2), CVA 10/2014, CAD s/p STEMI and multiple pci's, s/p CABG 02/2019, s/p PPM, ischemic CM with systolic chf, COPD, extensive smoking history (quit 12/2016) here with sob acute on chronic syst CHF, ischemic cardiomyopathy -mildly reduced EF on last echo - repeat echo ordered - s/p CABG 02/2019 - likely CHF exac in setting of dietary indiscretion - was on lasix 40 mg BID at home -cont home metoprolol (change to succinate for CHF indication), imdur, hydralazine for chf regimen - not on ACEI due to hx BRANT with Cr 2.5 while on ACEIwith poor followup for labs in the past - start IV lasix 40 mg BID - monitor daily weight, lytes, Cr CAD: -2004 s/p PCI ([facility]) to 100% occl RPDA ([facility]) with patent prior RCA stents at that time, EF 50% then; -2011 s/p anterior STEMI 2011 with [facility] x 2 to mid LAD then ([facility]); residual 80% prox D1 (large vessel), 95% mD1; 70%mRCA (pre and post prior stents), 70% dCFX; (also 40% RPDA; 60% pCFX; 40% mCFX;) EF then 37% with AK of apex/AL lindsey and AK of IW; -2016 s/p NSTEMI in setting of sepsis/PNA-->[facility] with 70-80% mRCA (ISR), 70-80% RPDA (ISR); 70-80% mLAD; 80-90% pLCX (small vessel); 90-95% OM2 (large vessel); 80-90% prox Ramus (large vessel), 30-50% ostial RCA, 50-60% eccentric lesion OM1 (large vessel); - NSTEMI 02/2019, now s/p CABG at [facility] -no signs ACS here -cont aspirin, statin -cont home BB, imdur HTN: -cont home meds Atrial fibrillation - cont warfarin, metoprolol s/p PPM, hx mobitz 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 acute CVA/TIA 11/13 - now on warfarin and aspirin
[2019-04-15 17:04] VITALS: BMI 27.3
[2019-04-15] MEDS: oxyCODONE HCL 5 MG TABLET PO SCH ×3 (17:16→22:53)
[2019-04-15] MEDS: INSULIN SLIDING SCALE (NOVOLOG) 1 VIAL SQ SCH ×2 (17:16→23:02)
[2019-04-15] MEDS: WARFARIN NA 5 MG TABLET (UD) PO SCH (17:59)
[2019-04-15] MEDS ORDERED: METOPROLOL TARTRATE 25 MG TABLET (FP) PO SCH (22:00)
[2019-04-15] MEDS: PREGABALIN 75 MG CAPSULE PO SCH (22:53)
[2019-04-15] MEDS: hydrALAZINE HCL 10 MG TABLET PO SCH (22:53)
[2019-04-15] MEDS: metoPROLOL SUCCINATE 25 MG TAB.SR.24H (FP) PO SCH (22:53)
[2019-04-16] MEDS: oxyCODONE HCL 5 MG TABLET PO SCH ×6 (03:50→23:26)
[2019-04-16] MEDS: FUROSEMIDE 40 MG/4 ML INJECTABLE VIAL IVPUSH SCH ×2 (06:32→13:35)
[2019-04-16] MEDS: INSULIN SLIDING SCALE (NOVOLOG) 1 VIAL SQ SCH ×4 (06:32→21:40)
[2019-04-16] MEDS: PREGABALIN 75 MG CAPSULE PO SCH ×3 (06:32→21:36)
[2019-04-16 08:13] LABS: BASO % 1.4 % (0-2.0); EOS % 1.4 % (0-4.5); HEMATOCRIT 31.8 % (35.4-49); HEMOGLOBIN 9.9 GM/dL (11.7-16.9); LYMPH % 10.7 % (8-40); MCH 26.4 pg (25.7-33.7); MEAN CELL VOLUME 85.1 fl (80-96); MEAN PLT VOLUME 10.3 fl (7.5-11.1); MONO % 8.5 % (3.8-10.2); PLATELET COUNT 208 K/MM3 (134-434); RBC 3.73 M/mm3 (4.00-5.60); RDW 17.7 % (11.9-15.9); WHITE BLOOD COUNT 11.9 K/mm3 (4.0-10.0)
[2019-04-16 08:25] LABS: BLOOD UREA NITROGEN 29.7 mg/dL (7-18); CALCIUM 8.2 mg/dL (8.5-10.1); CREATININE 0.9 mg/dL (0.55-1.3); MAGNESIUM 1.5 mg/dL (1.8-2.4); PHOSPHOROUS 3.3 mg/dL (2.5-4.9); POTASSIUM 3.8 mmol/L (3.5-5.1)
[2019-04-16] MEDS ORDERED: PATIENT'S OWN MEDICATION (NON-FORMULARY) (Ferrous Sulfate [Feosol] 325 MG) PO SCH (10:00)
[2019-04-16] MEDS ORDERED: FLUTICASONE PROP 0.05% 16 GM NASAL SPRAY NS SCH (10:00)
[2019-04-16] MEDS ORDERED: PT OWN MED DRAWER 7, Y5N ONE (10:39)
--- NOTE | 2019-04-16 10:41 | PN ---
Teaching Attending Note Name of Resident: Kristin Mahan ATTENDING PHYSICIAN STATEMENT I saw and evaluated the patient. I reviewed the resident's note and discussed the case with the resident. I agree with the resident's findings and plan as documented. SUBJECTIVE: Mr Scott complains of chronic leg pain. Says his breathing is improved. No cp or n/v. OBJECTIVE: Last Vital Signs Temp Pulse Resp BP Pulse Ox 36.7 C 78 20 131/68 97 04/16/19 02:06 04/16/19 02:06 04/16/19 02:06 04/16/19 02:06 04/15/19 21:00 Gen: nad Pulm: ctab w/o w/r/r CV: irreg irreg w/o m/r/g Abd: +bs, s/nt/nd Ext: no c/c/e CBC, BMP 04/16/19 06:50 04/16/19 06:50 ASSESSMENT AND PLAN: (1) Congestive heart failure (CHF) Assessment/Plan: -appreciate cardiology assistance -continue IV diuresis -counselled patient and on low salt diet -suspect will be stable for discharge in 24-48 hours Code(s): I50.9 - HEART FAILURE, UNSPECIFIED Qualifiers: Heart failure type: other Qualified Code(s): I50.9 - Heart failure, unspecified (2) Acute respiratory failure Assessment/Plan: -secondary to CHF exacerbation -diuresis -oxygen support -much improved Code(s): J96.00 - ACUTE RESPIRATORY FAILURE, UNSP W HYPOXIA OR HYPERCAPNIA (3) CAD (coronary artery disease) Assessment/Plan: -s/p recent 4v CABG -continue home regimen -no chest pain or signs of ACS Code(s): I25.10 - ATHSCL HEART DISEASE OF [place] CORONARY ARTERY W/O ANG PCTRS Qualifiers: [place] vs. transplanted heart: [place] heart Associated angina: without angina (4) CKD (chronic kidney disease) Assessment/Plan: -at baseline Code(s): N18.9 - CHRONIC KIDNEY DISEASE, UNSPECIFIED Qualifiers: Chronic kidney disease stage: stage 2 (mild) Qualified Code(s): N18.2 - Chronic kidney disease, stage 2 (mild) (5) Chronic respiratory failure Assessment/Plan: -on home oxygen Code(s): J96.10 - CHRONIC RESPIRATORY FAILURE, UNSP W HYPOXIA OR HYPERCAPNIA Qualifiers: (6) Diabetes mellitus Assessment/Plan: -diabetic diet -FSBS and SSI Code(s): E11.9 - TYPE 2 DIABETES MELLITUS WITHOUT COMPLICATIONS Qualifiers: Diabetes mellitus type: type 2 Diabetes mellitus 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 insulin use: with 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 use Diabetes mellitus complication status: with circulatory complication Diabetes mellitus complication detail: with peripheral angiopathy with gangrene Qualified Code(s): E11.52 - Type 2 diabetes mellitus with diabetic peripheral angiopathy with gangrene (7) Hyperlipidemia Assessment/Plan: -continue statin Code(s): E78.5 - HYPERLIPIDEMIA, UNSPECIFIED (8) Hypertension Assessment/Plan: -continue home regimen -monitor Code(s): I10 - ESSENTIAL (PRIMARY) HYPERTENSION Qualifiers: Hypertension type: essential hypertension Qualified Code(s): I10 - Essential (primary) hypertension Problem List - Problems (1) Congestive heart failure (CHF) Code(s): I50.9 - HEART FAILURE, UNSPECIFIED Qualifiers: Heart failure type: other Qualified Code(s): I50.9 - Heart failure, unspecified (2) Acute respiratory failure Code(s): J96.00 - ACUTE RESPIRATORY FAILURE, UNSP W HYPOXIA OR HYPERCAPNIA (3) CAD (coronary artery disease) Code(s): I25.10 - ATHSCL HEART DISEASE OF [place] CORONARY ARTERY W/O ANG PCTRS Qualifiers: [place] vs. transplanted heart: [place] heart Associated angina: without angina (4) CKD (chronic kidney disease) Code(s): N18.9 - CHRONIC KIDNEY DISEASE, UNSPECIFIED Qualifiers: Chronic kidney disease stage: stage 2 (mild) Qualified Code(s): N18.2 - Chronic kidney disease, stage 2 (mild) (5) Chronic respiratory failure Code(s): J96.10 - CHRONIC RESPIRATORY FAILURE, UNSP W HYPOXIA OR HYPERCAPNIA Qualifiers: (6) Diabetes mellitus Code(s): E11.9 - TYPE 2 DIABETES MELLITUS WITHOUT COMPLICATIONS Qualifiers: Diabetes mellitus type: type 2 Diabetes mellitus fci insulin use: with fci use Diabetes mellitus complication status: with circulatory complication Diabetes mellitus complication detail: with peripheral angiopathy with gangrene Qualified Code(s): E11.52 - Type 2 diabetes mellitus with diabetic peripheral angiopathy with gangrene (7) Hyperlipidemia Code(s): E78.5 - HYPERLIPIDEMIA, UNSPECIFIED (8) Hypertension Code(s): I10 - ESSENTIAL (PRIMARY) HYPERTENSION Qualifiers: Hypertension type: essential hypertension Qualified Code(s): I10 - Essential (primary) hypertension
--- NOTE | 2019-04-16 10:44 | PN ---
Physical Exam: SUBJECTIVE: Patient seen and examined rsting in bed nad. afebrile hemodynamically stable. feels at baseline. denies sob, cough, orthopnea, palpitaitons. paced on telecontinue OBJECTIVE: Vital Signs Period Temp Pulse Resp BP Sys/Chandra Pulse Ox Last 24 Hr 97.3 F-99.6 F 66-78 20-30 124-139/68-78 97-100 GENERAL: The patient is awake, alert, and fully oriented, in no acute distress. HEAD: Normal with no signs of trauma. EYES: PERRL, extraocular movements intact, sclera anicteric, conjunctiva clear. No ptosis. ENT: moist mucous membranes. NECK: supple. LUNGS: mild bibasilar crackles Chest: surgical site dry scab no purulence well healing HEART: Regular rate and rhythm, S1, S2 ABDOMEN: Soft, nontender, nondistended, normoactive bowel sounds EXTREMITIES: no edema. NEUROLOGICAL: Cranial nerves II through XII grossly intact. Normal speech, gait not observed. PSYCH: Normal mood, normal affect. SKIN: Warm, dry Laboratory Results - last 24 hr 04/15/19 04/15/19 04/15/19 11:36 11:36 11:36 WBC 18.1 H RBC 4.00 Hgb 10.4 L Hct 34.3 L MCV 85.7 MCH 26.1 D MCHC 30.4 L RDW 17.8 H Plt Count 245 MPV 10.2 D Absolute Neuts (auto) 15.7 H Neutrophils % 86.8 H Neutrophils % (Manual) 84.0 H Band Neutrophils % 1.0 Lymphocytes % 4.5 L D Lymphocytes % (Manual) 4.0 L Monocytes % 7.2 Monocytes % (Manual) 7 Eosinophils % 0.7 Eosinophils % (Manual) 0.0 D Basophils % 0.8 Basophils % (Manual) 0.0 Myelocytes % (Man) 0 D Promyelocytes % (Man) 0 Blast Cells % (Manual) 0 Nucleated RBC % 0 Metamyelocytes 0 D Hypochromia 0 Platelet Estimate Normal Polychromasia 2+ Poikilocytosis 1+ Basophilic Stippling 1+ Anisocytosis 2+ Microcytosis 1+ Macrocytosis 0 Spherocytes 1+ Ovalocytes 1+ Acanthocytes (Spur) 1+ PT with INR 29.30 H INR 2.46 H PTT (Actin FS) 37.9 H VBG pH 7.36 POC VBG pCO2 56.2 H POC VBG pO2 35.7 VBG HCO3 30.7 H VBG O2 Sat (Radha) 60.8 L VBG Base Excess 4.6 H Sodium Potassium Chloride Carbon Dioxide Anion Gap BUN Creatinine Est GFR (CKD-EPI)AfAm Est GFR (CKD-EPI)NonAf POC Glucometer Random Glucose Lactic Acid Calcium Phosphorus Magnesium Total Bilirubin AST ALT Alkaline Phosphatase Troponin I B-Natriuretic Peptide Total Protein Albumin Urine Color Urine Appearance Urine pH Ur Specific [place] Urine Protein Urine Glucose (UA) Urine Ketones Urine Blood Urine Nitrite Urine Bilirubin Urine Urobilinogen Ur Leukocyte Esterase Urine WBC (Auto) Urine RBC (Auto) Urine Casts (Auto) U Epithel Cells (Auto) Urine Bacteria (Auto) 04/15/19 04/15/19 04/15/19 11:36 11:36 11:37 WBC RBC Hgb Hct MCV MCH MCHC RDW Plt Count MPV Absolute Neuts (auto) Neutrophils % Neutrophils % (Manual) Band Neutrophils % Lymphocytes % Lymphocytes % (Manual) Monocytes % Monocytes % (Manual) Eosinophils % Eosinophils % (Manual) Basophils % Basophils % (Manual) Myelocytes % (Man) Promyelocytes % (Man) Blast Cells % (Manual) Nucleated RBC % Metamyelocytes Hypochromia Platelet Estimate Polychromasia Poikilocytosis Basophilic Stippling Anisocytosis Microcytosis Macrocytosis Spherocytes Ovalocytes Acanthocytes (Spur) PT with INR INR PTT (Actin FS) VBG pH POC VBG pCO2 POC VBG pO2 VBG HCO3 VBG O2 Sat (Radha) VBG Base Excess Sodium 144 Potassium 4.0 Chloride 107 Carbon Dioxide 34 H Anion Gap 3 L BUN 33.5 H Creatinine 1.0 Est GFR (CKD-EPI)AfAm 87.37 Est GFR (CKD-EPI)NonAf 75.39 POC Glucometer Random Glucose 225 H Lactic Acid 1.0 Calcium 8.0 L Phosphorus Magnesium Total Bilirubin 0.3 AST 15 ALT 20 Alkaline Phosphatase 93 Troponin I 0.04 B-Natriuretic Peptide 79119.1 H Total Protein 6.1 L Albumin 2.7 L Urine Color Urine Appearance Urine pH Ur Specific [place] Urine Protein Urine Glucose (UA) Urine Ketones Urine Blood Urine Nitrite Urine Bilirubin Urine Urobilinogen Ur Leukocyte Esterase Urine WBC (Auto) Urine RBC (Auto) Urine Casts (Auto) U Epithel Cells (Auto) Urine Bacteria (Auto) 04/15/19 04/15/19 04/15/19 12:07 17:19 19:20 WBC RBC Hgb Hct MCV MCH MCHC RDW Plt Count MPV Absolute Neuts (auto) Neutrophils % Neutrophils % (Manual) Band Neutrophils % Lymphocytes % Lymphocytes % (Manual) Monocytes % Monocytes % (Manual) Eosinophils % Eosinophils % (Manual) Basophils % Basophils % (Manual) Myelocytes % (Man) Promyelocytes % (Man) Blast Cells % (Manual) Nucleated RBC % Metamyelocytes Hypochromia Platelet Estimate Polychromasia Poikilocytosis Basophilic Stippling Anisocytosis Microcytosis Macrocytosis Spherocytes Ovalocytes Acanthocytes (Spur) PT with INR INR PTT (Actin FS) VBG pH POC VBG pCO2 POC VBG pO2 VBG HCO3 VBG O2 Sat (Radha) VBG Base Excess Sodium Potassium Chloride Carbon Dioxide Anion Gap BUN Creatinine Est GFR (CKD-EPI)AfAm Est GFR (CKD-EPI)NonAf POC Glucometer 159 Random Glucose Lactic Acid 1.5 Calcium Phosphorus Magnesium Total Bilirubin AST ALT Alkaline Phosphatase Troponin I B-Natriuretic Peptide Total Protein Albumin Urine Color Yellow Urine Appearance Clear Urine pH 5.5 Ur Specific [place] 1.008 L Urine Protein Negative Urine Glucose (UA) Negative Urine Ketones Negative Urine Blood 1+ H Urine Nitrite Negative Urine Bilirubin Negative Urine Urobilinogen 0.2 Ur Leukocyte Esterase Negative Urine WBC (Auto) 1 Urine RBC (Auto) 13 Urine Casts (Auto) 0 U Epithel Cells (Auto) 0.2 Urine Bacteria (Auto) 0.7 04/15/19 04/16/19 04/16/19 22:57 06:25 06:50 WBC 11.9 H RBC 3.73 L Hgb 9.9 L Hct 31.8 L MCV 85.1 MCH 26.4 MCHC 31.0 L RDW 17.7 H Plt Count 208 MPV 10.3 Absolute Neuts (auto) 9.2 H Neutrophils % 78.0 Neutrophils % (Manual) Band Neutrophils % Lymphocytes % 10.7 D Lymphocytes % (Manual) Monocytes % 8.5 Monocytes % (Manual) Eosinophils % 1.4 D Eosinophils % (Manual) Basophils % 1.4 Basophils % (Manual) Myelocytes % (Man) Promyelocytes % (Man) Blast Cells % (Manual) Nucleated RBC % 0 Metamyelocytes Hypochromia Platelet Estimate Polychromasia Poikilocytosis Basophilic Stippling Anisocytosis Microcytosis Macrocytosis Spherocytes Ovalocytes Acanthocytes (Spur) PT with INR INR PTT (Actin FS) VBG pH POC VBG pCO2 POC VBG pO2 VBG HCO3 VBG O2 Sat (Radha) VBG Base Excess Sodium Potassium Chloride Carbon Dioxide Anion Gap BUN Creatinine Est GFR (CKD-EPI)AfAm Est GFR (CKD-EPI)NonAf POC Glucometer 160 100 Random Glucose Lactic Acid Calcium Phosphorus Magnesium Total Bilirubin AST ALT Alkaline Phosphatase Troponin I B-Natriuretic Peptide Total Protein Albumin Urine Color Urine Appearance Urine pH Ur Specific [place] Urine Protein Urine Glucose (UA) Urine Ketones Urine Blood Urine Nitrite Urine Bilirubin Urine Urobilinogen Ur Leukocyte Esterase Urine WBC (Auto) Urine RBC (Auto) Urine Casts (Auto) U Epithel Cells (Auto) Urine Bacteria (Auto) 04/16/19 04/16/19 06:50 08:10 WBC RBC Hgb Hct MCV MCH MCHC RDW Plt Count MPV Absolute Neuts (auto) Neutrophils % Neutrophils % (Manual) Band Neutrophils % Lymphocytes % Lymphocytes % (Manual) Monocytes % Monocytes % (Manual) Eosinophils % Eosinophils % (Manual) Basophils % Basophils % (Manual) Myelocytes % (Man) Promyelocytes % (Man) Blast Cells % (Manual) Nucleated RBC % Metamyelocytes Hypochromia Platelet Estimate Polychromasia Poikilocytosis Basophilic Stippling Anisocytosis Microcytosis Macrocytosis Spherocytes Ovalocytes Acanthocytes (Spur) PT with INR INR PTT (Actin FS) 33.4 VBG pH POC VBG pCO2 POC VBG pO2 VBG HCO3 VBG O2 Sat (Radha) VBG Base Excess Sodium 142 Potassium 3.8 Chloride 104 Carbon Dioxide 33 H Anion Gap 5 L BUN 29.7 H Creatinine 0.9 Est GFR (CKD-EPI)AfAm 99.24 Est GFR (CKD-EPI)NonAf 85.63 POC Glucometer Random Glucose 114 H Lactic Acid Calcium 8.2 L Phosphorus 3.3 Magnesium 1.5 L Total Bilirubin AST ALT Alkaline Phosphatase Troponin I B-Natriuretic Peptide Total Protein Albumin Urine Color Urine Appearance Urine pH Ur Specific [place] Urine Protein Urine Glucose (UA) Urine Ketones Urine Blood Urine Nitrite Urine Bilirubin Urine Urobilinogen Ur Leukocyte Esterase Urine WBC (Auto) Urine RBC (Auto) Urine Casts (Auto) U Epithel Cells (Auto) Urine Bacteria (Auto) Active Medications Generic Name Dose Route Start Last Admin Trade Name Christianoq PRN Reason Stop Dose Admin Acetaminophen 650 mg 04/15/19 15:33 Tylenol - PO Q4H PRN FEVER Aspirin 81 mg 04/16/19 10:00 Asa - PO DAILY [facility] Ferrous Sulfate 325 mg 04/16/19 10:00 Feosol - PO DAILY [facility] Fluticasone Propionate 2 spray 04/16/19 10:00 Flonase - NS DAILY [facility] Folic Acid 1 mg 04/16/19 10:00 Folic Acid - PO DAILY [facility] Furosemide 40 mg 04/16/19 06:00 04/16/19 06:32 Lasix Injection - IVPUSH 40 mg BID@0600,1400 RADHA Administration Hydralazine HCl 10 mg 04/15/19 22:00 04/15/19 22:53 Apresoline - PO 10 mg BID RADHA Administration Insulin Aspart 1 vial 04/15/19 16:30 04/16/19 06:32 Novolog Vial Sliding Scale - SQ Not Given ACHS [facility] Protocol Isosorbide Mononitrate 30 mg 04/16/19 10:00 Imdur - PO DAILY [facility] Magnesium Sulfate 1 gm 04/16/19 10:40 Magnesium Sulfate IVPB 04/16/19 10:41 ONCE ONE Metoprolol Succinate 25 mg 04/15/19 22:00 04/15/19 22:53 Toprol Xl - PO 25 mg BID RADHA Administration Oxycodone HCl 10 mg 04/15/19 15:45 04/16/19 08:07 Roxicodone - PO 10 mg Q4H RADHA Administration Pantoprazole Sodium 40 mg 04/16/19 10:00 Protonix - PO DAILY [facility] Pregabalin 75 mg 04/15/19 22:00 04/16/19 06:32 Lyrica - PO 75 mg TID RADHA Administration Rosuvastatin Calcium 20 mg 04/16/19 22:00 Crestor - PO HS RADHA Tamsulosin HCl 0.4 mg 04/16/19 10:00 Flomax - PO DAILY RADHA Warfarin Sodium 5 mg 04/15/19 18:00 04/15/19 17:59 Coumadin - PO 5 mg DAILY@1800 RADHA Administration ASSESSMENT/PLAN: The patient is a 68-year-old male with PMH of CVA, peripheral neuropathy, IDDM, CHF, HTN, MT (s/p CABG 1 month ago), HLD, COPD (on 4L O2 at home), GERD, CKD, who presents to the ED with progressively worsening shortness of breath that began at 3AM this morning. The patient states that the shortness of breath woke him out of sleep. CHF exacerbation due to dietary indiscretion CAD s/p MT s/p recent CABG HTN HLD COPD on O2 IDDM Hx of CVA GERD CKD -continue lasix 40 iv bid -TTE very poor quality inconclusive, old study mildly reduced ef -continue imdur, toprol, hydralazine; not on arb/acei due to elevated creat in the past -continue statin -continue coumadin -cardio consult appreciated -oxycodone for neuropathy -ISS Problem List - Problems (1) Congestive heart failure (CHF) Code(s): I50.9 - HEART FAILURE, UNSPECIFIED Qualifiers: Heart failure type: other Qualified Code(s): I50.9 - Heart failure, unspecified (2) BRANT (acute kidney injury) Code(s): N17.9 - ACUTE KIDNEY FAILURE, UNSPECIFIED (3) Acute on chronic systolic and diastolic heart failure, NYHA class 2 Code(s): I50.43 - ACUTE ON CHRONIC COMBINED SYSTOLIC AND DIASTOLIC HRT FAIL (4) CAD (coronary artery disease) Code(s): I25.10 - ATHSCL HEART DISEASE OF [place] CORONARY ARTERY W/O ANG PCTRS Qualifiers: [place] vs. transplanted heart: cahto heart Associated angina: without angina (5) CKD (chronic kidney disease) Code(s): N18.9 - CHRONIC KIDNEY DISEASE, UNSPECIFIED Qualifiers: Chronic kidney disease stage: stage 2 (mild) Qualified Code(s): N18.2 - Chronic kidney disease, stage 2 (mild) (6) COPD (chronic obstructive pulmonary disease) Code(s): J44.9 - CHRONIC OBSTRUCTIVE PULMONARY DISEASE, UNSPECIFIED (7) Chronic pain Code(s): G89.29 - OTHER CHRONIC PAIN (8) Diabetes mellitus Code(s): E11.9 - TYPE 2 DIABETES MELLITUS WITHOUT COMPLICATIONS Qualifiers: Diabetes mellitus type: type 2 Diabetes mellitus long term care social worker insulin use: with long term care social worker use Diabetes mellitus complication status: with circulatory complication Diabetes mellitus complication detail: with peripheral angiopathy with gangrene Qualified Code(s): E11.52 - Type 2 diabetes mellitus with diabetic peripheral angiopathy with gangrene (9) Dyspnea Code(s): R06.00 - DYSPNEA, UNSPECIFIED Visit type - Emergency Visit Emergency Visit: Yes ED Registration Date: 04/15/19 Care time: The patient presented to the Emergency Department on the above date and was hospitalized for further evaluation of their emergent condition. - New Patient This patient is new to me today: Yes Date on this admission: 04/16/19 - Critical Care Critical Care patient: No - Discharge Referral Referred to [facility] Med P.C.: No
[2019-04-16] MEDS: TAMSULOSIN HCL 0.4 MG CAP PO SCH (10:53)
[2019-04-16] MEDS: metoPROLOL SUCCINATE 25 MG TAB.SR.24H (FP) PO SCH ×2 (10:53→21:36)
[2019-04-16] MEDS: FOLIC ACID 1 MG TABLET (FP) PO SCH (10:53)
[2019-04-16] MEDS: PANTOPRAZOLE 40 MG TABLET (FP) PO SCH (10:53)
[2019-04-16] MEDS: hydrALAZINE HCL 10 MG TABLET PO SCH ×2 (10:54→21:36)
[2019-04-16] MEDS: ISOSORBIDE MONONITRATE 30 MG TAB.SR.24H (FP) PO SCH (10:54)
[2019-04-16] MEDS: FERROUS SO4 325 MG TABLET (FP) PO SCH (10:54)
[2019-04-16] MEDS: ASPIRIN 81 MG CHEWABLE TABLETS PO SCH (10:54)
[2019-04-16] MEDS ORDERED: MAGNESIUM SULF 50% (8.12 MEQ/2 ML-1 GM VIAL) IVPB ONE (11:00)
[2019-04-16 11:44] LABS: ANISOCYTOSIS 1+; MACROCYTOSIS 0; OVALOCYTE 1+; PLATELET ESTIMATE NORMAL
[2019-04-16] MEDS: FLUTICASONE PROP 0.05% 16 GM NASAL SPRAY NS SCH (11:46)
--- NOTE | 2019-04-16 11:59 | PN ---
Progress Note (short form) - Note Progress Note: s: sob improving. no chest pain, palps, dizziness Current Medications Acetaminophen (Tylenol -) 650 mg PO Q4H PRN PRN Reason: FEVER Aspirin (Asa -) 81 mg PO DAILY [facility] Last Admin: 04/16/19 10:54 Dose: 81 mg Ferrous Sulfate (Feosol -) 325 mg PO DAILY [facility] Last Admin: 04/16/19 10:54 Dose: 325 mg Fluticasone Propionate (Flonase -) 2 spray NS DAILY [facility] Last Admin: 04/16/19 11:46 Dose: Not Given Folic Acid (Folic Acid -) 1 mg PO DAILY [facility] Last Admin: 04/16/19 10:53 Dose: 1 mg Furosemide (Lasix Injection -) 40 mg IVPUSH BID@0600,1400 [facility] Last Admin: 04/16/19 06:32 Dose: 40 mg Hydralazine HCl (Apresoline -) 10 mg PO BID [facility] Last Admin: 04/16/19 10:54 Dose: 10 mg Insulin Aspart (Novolog Vial Sliding Scale -) 1 vial SQ ACHS [facility]; Protocol Last Admin: 04/16/19 11:46 Dose: 2 unit Isosorbide Mononitrate (Imdur -) 30 mg PO DAILY [facility] Last Admin: 04/16/19 10:54 Dose: 30 mg Metoprolol Succinate (Toprol Xl -) 25 mg PO BID [facility] Last Admin: 04/16/19 10:53 Dose: 25 mg Oxycodone HCl (Roxicodone -) 10 mg PO Q4H [facility] Last Admin: 04/16/19 08:07 Dose: 10 mg Pantoprazole Sodium (Protonix -) 40 mg PO DAILY [facility] Last Admin: 04/16/19 10:53 Dose: 40 mg Pregabalin (Lyrica -) 75 mg PO TID [facility] Last Admin: 04/16/19 06:32 Dose: 75 mg Rosuvastatin Calcium (Crestor -) 20 mg PO [facility] Tamsulosin HCl (Flomax -) 0.4 mg PO DAILY [facility] Last Admin: 04/16/19 10:53 Dose: 0.4 mg Warfarin Sodium (Coumadin -) 5 mg PO DAILY@1800 [facility] Last Admin: 04/15/19 17:59 Dose: 5 mg Vital Signs Period Temp Pulse Resp BP Sys/Chandra Pulse Ox Last 24 Hr 97.3 F-99.6 F 66-78 20-22 124-139/68-78 97-98 nad no jvd rrr s1s2 no mrg cta bl rales at bases, diffuse rhonchi aaox3 no le e/c/c abd nt nd pos bs no jaundice diaphoresis pos dp pt no carotid bruits ecg: a paced, V paced, PVC LHC 05/15: 70-80% mRCA (ISR), 70-80% RPDA (ISR); 70-80% mLAD; 80-90% pLCX (small vessel); 90-95% OM2 (large vessel); 80-90% prox Ramus (large vessel) ...nonobstructive dz of note [id number]% ostial RCA, 50-60% eccentric lesion OM1 (large vessel); EDP 30-->25 post-nitro EF 38% (diffuse WMAs) Syntax score 20 Echo 10/29/18: mod LVE, mild global LV hypo (45-50%). RV tds. mild TR. no vegetations noted Echo 05/15: mod to sev decr LVEF; severe hypokinesis of all lindsey except basal segments. nl RV. mild MR/TR. no peric eff. Echo 01/2017: mild global HK, lvef 45-50, nl rv, nl rvsp, mild lae, mild tr a/p: 69M h/o dm, ckd (1.5-2), CVA 10/2014, CAD s/p STEMI and multiple pci's, s/p CABG 02/2019, s/p PPM, ischemic CM with systolic chf, COPD, extensive smoking history (quit 12/2016) here with sob acute on chronic syst CHF, ischemic cardiomyopathy -mildly reduced EF on last echo - repeat echo ordered - s/p CABG 02/2019 - likely CHF exac in setting of dietary indiscretion - was on lasix 40 mg BID at home -cont home metoprolol (change to succinate for CHF indication), imdur, hydralazine for chf regimen - not on ACEI due to hx BRANT with Cr 2.5 while on ACEIwith poor followup for labs in the past - cont IV lasix 40 mg BID - monitor daily weight, lytes, Cr CAD: -2004 s/p PCI ([facility]) to 100% occl RPDA ([facility]) with patent prior RCA stents at that time, EF 50% then; -2011 s/p anterior STEMI 2011 with [place] [facility] x 2 to mid LAD then (monte); residual 80% prox D1 (large vessel), 95% mD1; 70%mRCA (pre and post prior stents), 70% dCFX; (also 40% RPDA; 60% pCFX; 40% mCFX;) EF then 37% with AK of apex/AL lindsey and AK of IW; -2016 s/p NSTEMI in setting of sepsis/PNA-->[facility] with 70-80% mRCA (ISR), 70-80% RPDA (ISR); 70-80% mLAD; 80-90% pLCX (small vessel); 90-95% OM2 (large vessel); 80-90% prox Ramus (large vessel), 30-50% ostial RCA, 50-60% eccentric lesion OM1 (large vessel); - NSTEMI 02/2019, now s/p CABG at [facility] -no signs ACS here -cont aspirin, statin -cont home BB, imdur HTN: -cont home meds Atrial fibrillation - cont warfarin, metoprolol s/p PPM, hx mobitz 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 acute CVA/TIA 11/13 - now on warfarin and aspirin
[2019-04-16 12:10] LABS: INR 2.01 (0.83-1.09); PROTHROMBIN TIME (PATIENT) 23.9 SEC (9.7-13.0)
--- NOTE | 2019-04-16 15:51 | ECHO ---
Version: 1 Name: MERVAT COX Exam: Adult Echocardiogram Study Date: 04/16/2019, 8:14 AM Age: 69 Years MMode/2D Measurements & Calculations IVSd: 1.01 cm LVIDs: 2.8 cm LVIDd: 3.5 cm LVPWd: 1.43 cm ACS: 2.03 cm LVOT diam: 2.07 cm Doppler Measurements & Calculations MV E max meño: 80.9 cm/sec Med E/e': 24.4 MV A max meño: 82.4 cm/sec Med Peak E' Meño: 3.3 cm/sec MV E/A: 0.98 Lat E/e': 12.8 Lat Peak E' Meño: 6.3 cm/sec Ao max P.3 mmHg LV V1 mean: 45.6 cm/sec Ao V2 max: 126.0 cm/sec LV V1 mean P.08 mmHg Procedure The study was non-diagnostic in quality. No definitive statements could be made about this echo due to extremely poor acoustic windows. Left Ventricle Due to the poor quality of the echocardiogram, an assessment of left ventricular ejection fraction c annot be made. Right Ventricle The right ventricle is not well visualized. Atria The left atrial size is normal. Right atrium not well visualized. Mitral Valve There is moderate mitral annular calcification. There is mild mitral regurgitation. Tricuspid Valve The tricuspid valve is not well visualized. There is mild tricuspid regurgitation. Aortic Valve There is moderate aortic sclerosis.;. No hemodynamically significant valvular aortic stenosis. Pulmonic Valve The pulmonic valve is not well visualized. Great Vessels The aortic root is not well visualized. Pericardium/Pleura There is no pericardial effusion. Summary Statements Due to the poor quality of the echocardiogram, an assessment of left ventricular ejection fraction c annot be made. No hemodynamically significant valvular aortic stenosis. There is no pericardial effusion. Edmond Diana 04/16/2019, 2:50 PM Ordering Physician: SHY GUSMAN Performed By: Gertrude Bond
[2019-04-16] MEDS: WARFARIN NA 5 MG TABLET (UD) PO SCH (17:07)
[2019-04-16] MEDS: ROSUVASTATIN CA 20 MG TABLET (FP) PO SCH (21:36)
[2019-04-17] MEDS: oxyCODONE HCL 5 MG TABLET PO SCH ×5 (04:19→20:25)
[2019-04-17] MEDS: FUROSEMIDE 40 MG/4 ML INJECTABLE VIAL IVPUSH SCH (06:16)
[2019-04-17] MEDS: PREGABALIN 75 MG CAPSULE PO SCH ×3 (06:16→21:39)
[2019-04-17] MEDS: INSULIN SLIDING SCALE (NOVOLOG) 1 VIAL SQ SCH ×4 (06:16→21:43)
[2019-04-17 07:02] LABS: HEMATOCRIT 27.4 % (35.4-49); HEMOGLOBIN 8.7 GM/dL (11.7-16.9); MCH 26.6 pg (25.7-33.7); MCHC 31.6 g/dl (32.0-35.9); MEAN CELL VOLUME 84.1 fl (80-96); MEAN PLT VOLUME 10.3 fl (7.5-11.1); PLATELET COUNT 197 K/MM3 (134-434); RBC 3.26 M/mm3 (4.00-5.60); RDW 17.7 % (11.9-15.9)
[2019-04-17 07:11] LABS: INR 2.15 (0.83-1.09); PROTHROMBIN TIME (PATIENT) 25.6 SEC (9.7-13.0)
[2019-04-17 07:42] LABS: BLOOD UREA NITROGEN 32.2 mg/dL (7-18); CALCIUM 8.1 mg/dL (8.5-10.1); MAGNESIUM 1.7 mg/dL (1.8-2.4); PHOSPHOROUS 3.9 mg/dL (2.5-4.9)
[2019-04-17] MEDS: TAMSULOSIN HCL 0.4 MG CAP PO SCH (09:40)
[2019-04-17] MEDS: hydrALAZINE HCL 10 MG TABLET PO SCH ×2 (09:40→21:39)
[2019-04-17] MEDS: FERROUS SO4 325 MG TABLET (FP) PO SCH (09:40)
[2019-04-17] MEDS: FOLIC ACID 1 MG TABLET (FP) PO SCH (09:40)
[2019-04-17] MEDS: PANTOPRAZOLE 40 MG TABLET (FP) PO SCH (09:40)
[2019-04-17] MEDS: ISOSORBIDE MONONITRATE 30 MG TAB.SR.24H (FP) PO SCH (09:40)
[2019-04-17] MEDS: metoPROLOL SUCCINATE 25 MG TAB.SR.24H (FP) PO SCH ×2 (09:40→21:40)
[2019-04-17] MEDS: ASPIRIN 81 MG CHEWABLE TABLETS PO SCH (09:40)
[2019-04-17] MEDS: FLUTICASONE PROP 0.05% 16 GM NASAL SPRAY NS SCH (09:43)
[2019-04-17] MEDS ORDERED: MAGNESIUM SULF 50% (8.12 MEQ/2 ML-1 GM VIAL) IVPB ONE (11:59)
--- NOTE | 2019-04-17 11:59 | PN ---
Progress Note (short form) - Note Progress Note: s: sob at baseline. no chest pain, palps, dizziness Current Medications Acetaminophen (Tylenol -) 650 mg PO Q4H PRN PRN Reason: FEVER Last Admin: 04/16/19 22:09 Dose: 650 mg Aspirin (Asa -) 81 mg PO DAILY [facility] Last Admin: 04/17/19 09:40 Dose: 81 mg Ferrous Sulfate (Feosol -) 325 mg PO DAILY [facility] Last Admin: 04/17/19 09:40 Dose: 325 mg Fluticasone Propionate (Flonase -) 2 spray NS DAILY [facility] Last Admin: 04/17/19 09:43 Dose: 2 sprays Folic Acid (Folic Acid -) 1 mg PO DAILY [facility] Last Admin: 04/17/19 09:40 Dose: 1 mg Furosemide (Lasix Injection -) 40 mg IVPUSH BID@0600,1400 [facility] Last Admin: 04/17/19 06:16 Dose: 40 mg Hydralazine HCl (Apresoline -) 10 mg PO BID [facility] Last Admin: 04/17/19 09:40 Dose: 10 mg Insulin Aspart (Novolog Vial Sliding Scale -) 1 vial SQ [facility]; Protocol Last Admin: 04/17/19 06:16 Dose: Not Given Isosorbide Mononitrate (Imdur -) 30 mg PO DAILY [facility] Last Admin: 04/17/19 09:40 Dose: 30 mg Metoprolol Succinate (Toprol Xl -) 25 mg PO BID [facility] Last Admin: 04/17/19 09:40 Dose: 25 mg Oxycodone HCl (Roxicodone -) 10 mg PO Q4H [facility] Last Admin: 04/17/19 07:46 Dose: 10 mg Pantoprazole Sodium (Protonix -) 40 mg PO DAILY [facility] Last Admin: 04/17/19 09:40 Dose: 40 mg Pregabalin (Lyrica -) 75 mg PO TID [facility] Last Admin: 04/17/19 06:16 Dose: 75 mg Rosuvastatin Calcium (Crestor -) 20 mg PO HS [facility] Last Admin: 04/16/19 21:36 Dose: 20 mg Tamsulosin HCl (Flomax -) 0.4 mg PO DAILY [facility] Last Admin: 04/17/19 09:40 Dose: 0.4 mg Warfarin Sodium (Coumadin -) 5 mg PO DAILY@1800 [facility] Last Admin: 04/16/19 17:07 Dose: 5 mg Vital Signs Period Temp Pulse Resp BP Sys/Chandra Pulse Ox Last 24 Hr 97.6 F-98.1 F 57-71 18-20 113-134/60-73 97-100 nad no jvd rrr s1s2 no mrg cta bl rales at bases, diffuse rhonchi aaox3 no le e/c/c abd nt nd pos bs no jaundice diaphoresis pos dp pt no carotid bruits ecg: a paced, V paced, PVC LHC 05/15: 70-80% mRCA (ISR), 70-80% RPDA (ISR); 70-80% mLAD; 80-90% pLCX (small vessel); 90-95% OM2 (large vessel); 80-90% prox Ramus (large vessel) ...nonobstructive dz of note -27% ostial RCA, 50-60% eccentric lesion OM1 (large vessel); EDP 30-->25 post-nitro EF 38% (diffuse WMAs) Syntax score 20 Echo 10/29/18: mod LVE, mild global LV hypo (45-50%). RV tds. mild TR. no vegetations noted Echo 05/15: mod to sev decr LVEF; severe hypokinesis of all lindsey except basal segments. nl RV. mild MR/TR. no peric eff. 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; AP, [employer], PVCs a/p: 69M h/o dm, ckd (1.5-2), CVA 10/2014, CAD s/p STEMI and multiple pci's, s/p CABG 02/2019, s/p PPM, ischemic CM with systolic chf, COPD, extensive smoking history (quit 12/2016) here with sob acute on chronic syst CHF, ischemic cardiomyopathy -mildly reduced EF on last echo - tds here, will reevaluate as outpatient - s/p CABG 02/2019 - likely CHF exac in setting of dietary indiscretion -cont home metoprolol (change to succinate for CHF indication), imdur, hydralazine for chf regimen - not on ACEI due to hx BRANT with Cr 2.5 while on ACEIwith poor followup for labs in the past - change to PO lasix today CAD: -2004 s/p PCI ([facility]) to 100% occl RPDA ([facility]) with patent prior RCA stents at that time, EF 50% then; -2011 s/p anterior STEMI 2011 with [place] LIBBY x 2 to mid LAD then ([facility]); residual 80% prox D1 (large vessel), 95% mD1; 70%mRCA (pre and post prior stents), 70% dCFX; (also 40% RPDA; 60% pCFX; 40% mCFX;) EF then 37% with AK of apex/AL lindsey and AK of IW; -2016 s/p NSTEMI in setting of sepsis/PNA-->[facility] with 70-80% mRCA (ISR), 70-80% RPDA (ISR); 70-80% mLAD; 80-90% pLCX (small vessel); 90-95% OM2 (large vessel); 80-90% prox Ramus (large vessel), 30-50% ostial RCA, 50-60% eccentric lesion OM1 (large vessel); - NSTEMI 02/2019, now s/p CABG at [facility] -no signs ACS here -cont aspirin, statin -cont home BB, imdur HTN: -cont home meds Atrial fibrillation - cont warfarin, metoprolol s/p PPM, hx mobitz 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 acute CVA/TIA 11/13 - now on warfarin and aspirin
--- NOTE | 2019-04-17 13:02 | PN ---
Teaching Attending Note Name of Resident: Kristin Mahan ATTENDING PHYSICIAN STATEMENT I saw and evaluated the patient. I reviewed the resident's note and discussed the case with the resident. I agree with the resident's findings and plan as documented. SUBJECTIVE: Mr Scott says he is feeling better but still with TALLEY. No cp, sob at rest, or n/v. OBJECTIVE: Last Vital Signs Temp Pulse Resp BP Pulse Ox 36.7 C 71 18 134/68 97 04/17/19 09:00 04/17/19 09:00 04/17/19 09:00 04/17/19 09:00 04/17/19 09:00 Gen: nad Pulm: ctab w/o w/r/r CV: rrr w/o m/r/g Abd: +bs, s/nt/nd Ext: no c/c/e CBC, BMP 04/17/19 06:08 04/17/19 06:08 ASSESSMENT AND PLAN: (1) Congestive heart failure (CHF) Assessment/Plan: -appreciate cardiology assistance -still needs IV diuresis today, with TALLEY -plan to change to po diuretics tomorrow -patient counselled on low salt diet, insists on drinking powerade -discharge to SNF tomorrow Code(s): I50.9 - HEART FAILURE, UNSPECIFIED Qualifiers: Heart failure type: other Qualified Code(s): I50.9 - Heart failure, unspecified (2) Acute respiratory failure Assessment/Plan: -continue diuresis -improving Code(s): J96.00 - ACUTE RESPIRATORY FAILURE, UNSP W HYPOXIA OR HYPERCAPNIA (3) CAD (coronary artery disease) Assessment/Plan: -s/p recent 4v CABG -continue home regimen -no chest pain or signs of ACS Code(s): I25.10 - ATHSCL HEART DISEASE OF [place] CORONARY ARTERY W/O ANG PCTRS Qualifiers: [place] vs. transplanted heart: [place] heart Associated angina: without angina (4) CKD (chronic kidney disease) Assessment/Plan: -at baseline Code(s): N18.9 - CHRONIC KIDNEY DISEASE, UNSPECIFIED Qualifiers: Chronic kidney disease stage: stage 2 (mild) Qualified Code(s): N18.2 - Chronic kidney disease, stage 2 (mild) (5) Chronic respiratory failure Assessment/Plan: -on home oxygen Code(s): J96.10 - CHRONIC RESPIRATORY FAILURE, UNSP W HYPOXIA OR HYPERCAPNIA Qualifiers: (6) Diabetes mellitus Assessment/Plan: -diabetic diet -FSBS and SSI Code(s): E11.9 - TYPE 2 DIABETES MELLITUS WITHOUT COMPLICATIONS Qualifiers: Diabetes mellitus type: type 2 Diabetes mellitus [facility] insulin use: with 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 terminal 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 Diabetes mellitus complication status: with circulatory complication Diabetes mellitus complication detail: with peripheral angiopathy with gangrene Qualified Code(s): E11.52 - Type 2 diabetes mellitus with diabetic peripheral angiopathy with gangrene (7) Hyperlipidemia Assessment/Plan: -continue statin Code(s): E78.5 - HYPERLIPIDEMIA, UNSPECIFIED (8) Hypertension Assessment/Plan: -continue home regimen -monitor Code(s): I10 - ESSENTIAL (PRIMARY) HYPERTENSION Qualifiers: Hypertension type: essential hypertension Qualified Code(s): I10 - Essential (primary) hypertension Problem List - Problems (1) Congestive heart failure (CHF) Code(s): I50.9 - HEART FAILURE, UNSPECIFIED Qualifiers: Heart failure type: other Qualified Code(s): I50.9 - Heart failure, unspecified (2) Acute respiratory failure Code(s): J96.00 - ACUTE RESPIRATORY FAILURE, UNSP W HYPOXIA OR HYPERCAPNIA (3) CAD (coronary artery disease) Code(s): I25.10 - ATHSCL HEART DISEASE OF [place] CORONARY ARTERY W/O ANG PCTRS Qualifiers: [place] vs. transplanted heart: [place] heart Associated angina: without angina (4) CKD (chronic kidney disease) Code(s): N18.9 - CHRONIC KIDNEY DISEASE, UNSPECIFIED Qualifiers: Chronic kidney disease stage: stage 2 (mild) Qualified Code(s): N18.2 - Chronic kidney disease, stage 2 (mild) (5) Chronic respiratory failure Code(s): J96.10 - CHRONIC RESPIRATORY FAILURE, UNSP W HYPOXIA OR HYPERCAPNIA Qualifiers: (6) Diabetes mellitus Code(s): E11.9 - TYPE 2 DIABETES MELLITUS WITHOUT COMPLICATIONS Qualifiers: Diabetes mellitus type: type 2 Diabetes mellitus [facility] insulin use: with truck terminal manager use Diabetes mellitus complication status: with circulatory complication Diabetes mellitus complication detail: with peripheral angiopathy with gangrene Qualified Code(s): E11.52 - Type 2 diabetes mellitus with diabetic peripheral angiopathy with gangrene (7) Hyperlipidemia Code(s): E78.5 - HYPERLIPIDEMIA, UNSPECIFIED (8) Hypertension Code(s): I10 - ESSENTIAL (PRIMARY) HYPERTENSION Qualifiers: Hypertension type: essential hypertension Qualified Code(s): I10 - Essential (primary) hypertension
--- NOTE | 2019-04-17 13:14 | PN ---
Physical Exam: SUBJECTIVE: Patient seen and examined rsting in bed nad. afebrile hemodynamically stable. feels at baseline. denies sob, cough, orthopnea, palpitaitons. paced on tele OBJECTIVE: Vital Signs Period Temp Pulse Resp BP Sys/Chandra Pulse Ox Last 24 Hr 97.6 F-98.1 F 57-71 18-20 113-134/60-73 97-100 GENERAL: The patient is awake, alert, and fully oriented, in no acute distress. HEAD: Normal with no signs of trauma. EYES: PERRL, extraocular movements intact, sclera anicteric, conjunctiva clear. No ptosis. ENT: moist mucous membranes. NECK: supple. LUNGS: bibasilar crackles Chest: surgical site dry scab no purulence well healing HEART: Regular rate and rhythm, S1, S2 ABDOMEN: Soft, nontender, nondistended, normoactive bowel sounds EXTREMITIES: no edema. NEUROLOGICAL: Cranial nerves II through XII grossly intact. Normal speech, gait not observed. PSYCH: Normal mood, normal affect. SKIN: Warm, dry Laboratory Results - last 24 hr 04/16/19 04/16/19 04/17/19 16:48 21:39 06:08 WBC 12.0 H RBC 3.26 L Hgb 8.7 L Hct 27.4 L MCV 84.1 MCH 26.6 MCHC 31.6 L RDW 17.7 H Plt Count 197 MPV 10.3 PT with INR INR Sodium Potassium Chloride Carbon Dioxide Anion Gap BUN Creatinine Est GFR (CKD-EPI)AfAm Est GFR (CKD-EPI)NonAf POC Glucometer 206 189 Random Glucose Calcium Phosphorus Magnesium 04/17/19 04/17/19 04/17/19 06:08 06:08 06:11 WBC RBC Hgb Hct MCV MCH MCHC RDW Plt Count MPV PT with INR 25.60 H INR 2.15 H Sodium 135 L Potassium 4.0 Chloride 100 Carbon Dioxide 31 Anion Gap 5 L BUN 32.2 H Creatinine 1.0 Est GFR (CKD-EPI)AfAm 87.37 Est GFR (CKD-EPI)NonAf 75.39 POC Glucometer 147 Random Glucose 146 H Calcium 8.1 L Phosphorus 3.9 Magnesium 1.7 L 04/17/19 11:48 WBC RBC Hgb Hct MCV MCH MCHC RDW Plt Count MPV PT with INR INR Sodium Potassium Chloride Carbon Dioxide Anion Gap BUN Creatinine Est GFR (CKD-EPI)AfAm Est GFR (CKD-EPI)NonAf POC Glucometer 211 Random Glucose Calcium Phosphorus Magnesium Active Medications Generic Name Dose Route Start Last Admin Trade Name Freq PRN Reason Stop Dose Admin Acetaminophen 650 mg 04/15/19 15:33 04/16/19 22:09 Tylenol - PO 650 mg Q4H PRN Administration FEVER Aspirin 81 mg 04/16/19 10:00 04/17/19 09:40 Asa - PO 81 mg DAILY RADHA Administration Ferrous Sulfate 325 mg 04/16/19 10:00 04/17/19 09:40 Feosol - PO 325 mg DAILY RADHA Administration Fluticasone Propionate 2 spray 04/16/19 10:00 04/17/19 09:43 Flonase - NS 2 sprays DAILY RADHA Administration Folic Acid 1 mg 04/16/19 10:00 04/17/19 09:40 Folic Acid - PO 1 mg DAILY RADHA Administration Furosemide 80 mg 04/17/19 14:00 Lasix - PO BID@0600,1400 RADHA Hydralazine HCl 10 mg 04/15/19 22:00 04/17/19 09:40 Apresoline - PO 10 mg BID RADHA Administration Insulin Aspart 1 vial 04/15/19 16:30 04/17/19 12:20 Novolog Vial Sliding Scale - SQ 4 unit ACHS RADHA Administration Protocol Isosorbide Mononitrate 30 mg 04/16/19 10:00 04/17/19 09:40 Imdur - PO 30 mg DAILY RADHA Administration Metoprolol Succinate 25 mg 04/15/19 22:00 04/17/19 09:40 Toprol Xl - PO 25 mg BID RADHA Administration Oxycodone HCl 10 mg 04/15/19 15:45 04/17/19 12:20 Roxicodone - PO 10 mg Q4H RADHA Administration Pantoprazole Sodium 40 mg 04/16/19 10:00 04/17/19 09:40 Protonix - PO 40 mg DAILY RADHA Administration Pregabalin 75 mg 04/15/19 22:00 04/17/19 06:16 Lyrica - PO 75 mg TID RADHA Administration Rosuvastatin Calcium 20 mg 04/16/19 22:00 04/16/19 21:36 Crestor - PO 20 mg HS RADHA Administration Tamsulosin HCl 0.4 mg 04/16/19 10:00 04/17/19 09:40 Flomax - PO 0.4 mg DAILY RADHA Administration Warfarin Sodium 5 mg 04/15/19 18:00 04/16/19 17:07 Coumadin - PO 5 mg DAILY@1800 RADHA Administration ASSESSMENT/PLAN: The patient is a 68-year-old male with PMH of CVA, peripheral neuropathy, IDDM, CHF, HTN, [place] (s/p CABG 1 month ago), HLD, COPD (on 4L O2 at home), GERD, CKD, who presents to the ED with progressively worsening shortness of breath that began at 3AM this morning. The patient states that the shortness of breath woke him out of sleep. CHF exacerbation due to dietary indiscretion CAD s/p SD s/p recent CABG HTN HLD COPD on O2 IDDM Hx of CVA GERD CKD -switched to po lasix -TTE very poor quality inconclusive, old study mildly reduced ef -continue imdur, toprol, hydralazine; not on arb/acei due to elevated creat in the past -continue statin -continue coumadin -cardio consult appreciated -oxycodone for neuropathy -ISS -plan dc to rehab tomorrow Problem List - Problems (1) Congestive heart failure (CHF) Code(s): I50.9 - HEART FAILURE, UNSPECIFIED Qualifiers: Heart failure type: other Qualified Code(s): I50.9 - Heart failure, unspecified (2) BRANT (acute kidney injury) Code(s): N17.9 - ACUTE KIDNEY FAILURE, UNSPECIFIED (3) Acute on chronic systolic and diastolic heart failure, NYHA class 2 Code(s): I50.43 - ACUTE ON CHRONIC COMBINED SYSTOLIC AND DIASTOLIC HRT FAIL (4) CAD (coronary artery disease) Code(s): I25.10 - ATHSCL HEART DISEASE OF [place] CORONARY ARTERY W/O ANG PCTRS Qualifiers: [place] vs. transplanted heart: [place] heart Associated angina: without angina (5) CKD (chronic kidney disease) Code(s): N18.9 - CHRONIC KIDNEY DISEASE, UNSPECIFIED Qualifiers: Chronic kidney disease stage: stage 2 (mild) Qualified Code(s): N18.2 - Chronic kidney disease, stage 2 (mild) (6) COPD (chronic obstructive pulmonary disease) Code(s): J44.9 - CHRONIC OBSTRUCTIVE PULMONARY DISEASE, UNSPECIFIED (7) Chronic pain Code(s): G89.29 - OTHER CHRONIC PAIN (8) Diabetes mellitus Code(s): E11.9 - TYPE 2 DIABETES MELLITUS WITHOUT COMPLICATIONS Qualifiers: Diabetes mellitus type: type 2 Diabetes mellitus skilled nursing insulin use: with 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 - New Patient This patient is new to me today: No - Critical Care Critical Care patient: No - Discharge Referral Referred to [facility] Med P.C.: No
[2019-04-17] MEDS: FUROSEMIDE 40 MG TABLET (FP) PO SCH (13:42)
[2019-04-17] MEDS: WARFARIN NA 5 MG TABLET (UD) PO SCH (17:33)
[2019-04-17] MEDS: ROSUVASTATIN CA 20 MG TABLET (FP) PO SCH (21:39)
[2019-04-18] MEDS: oxyCODONE HCL 5 MG TABLET PO SCH ×4 (00:06→11:55)
[2019-04-18] MEDS: PREGABALIN 75 MG CAPSULE PO SCH (06:23)
[2019-04-18] MEDS: FUROSEMIDE 40 MG TABLET (FP) PO SCH (06:23)
[2019-04-18] MEDS: INSULIN SLIDING SCALE (NOVOLOG) 1 VIAL SQ SCH ×2 (06:24→12:01)
[2019-04-18 07:02] LABS: HEMOGLOBIN 9.1 GM/dL (11.7-16.9); MCH 26.6 pg (25.7-33.7); MCHC 31.4 g/dl (32.0-35.9); MEAN CELL VOLUME 84.8 fl (80-96); MEAN PLT VOLUME 10.3 fl (7.5-11.1); PLATELET COUNT 199 K/MM3 (134-434); RBC 3.42 M/mm3 (4.00-5.60); RDW 17.6 % (11.9-15.9); WHITE BLOOD COUNT 12.6 K/mm3 (4.0-10.0)
[2019-04-18 07:05] LABS: BLOOD UREA NITROGEN 32.5 mg/dL (7-18); CALCIUM 7.8 mg/dL (8.5-10.1); PHOSPHOROUS 3.9 mg/dL (2.5-4.9); POTASSIUM 4.3 mmol/L (3.5-5.1)
[2019-04-18 07:22] LABS: INR 1.96 (0.83-1.09); PROTHROMBIN TIME (PATIENT) 23.3 SEC (9.7-13.0)
--- NOTE | 2019-04-18 08:18 | DS ---
Physical Exam: SUBJECTIVE: Patient seen and examined resting in bed nad. afebrile hemodynamically stable. feels at baseline. denies sob, cough, orthopnea, palpitaitons. paced on tele OBJECTIVE: Vital Signs Period Temp Pulse Resp BP Sys/Chandra Pulse Ox Last 24 Hr 97.0 F-98.1 F 57-71 18-20 129-140/68-74 97-99 PHYSICAL EXAM GENERAL: The patient is awake, alert, and fully oriented, in no acute distress. HEAD: Normal with no signs of trauma. EYES: PERRL, extraocular movements intact, sclera anicteric, conjunctiva clear. No ptosis. ENT: moist mucous membranes. NECK: supple. LUNGS: bibasilar crackles Chest: surgical site dry scab no purulence well healing HEART: Regular rate and rhythm, S1, S2 ABDOMEN: Soft, nontender, nondistended, normoactive bowel sounds EXTREMITIES: no edema. NEUROLOGICAL: Cranial nerves II through XII grossly intact. Normal speech, gait not observed. PSYCH: Normal mood, normal affect. SKIN: Warm, dry LABS Laboratory Results - last 24 hr 04/17/19 04/17/19 04/17/19 06:08 11:48 17:03 WBC 12.0 H RBC 3.26 L Hgb 8.7 L Hct 27.4 L MCV 84.1 MCH 26.6 MCHC 31.6 L RDW 17.7 H Plt Count 197 MPV 10.3 PT with INR INR Sodium Potassium Chloride Carbon Dioxide Anion Gap BUN Creatinine Est GFR (CKD-EPI)AfAm Est GFR (CKD-EPI)NonAf POC Glucometer 211 134 Random Glucose Calcium Phosphorus Magnesium 04/17/19 04/18/19 04/18/19 21:41 06:10 06:10 WBC 12.6 H RBC 3.42 L Hgb 9.1 L Hct 29.0 L MCV 84.8 MCH 26.6 MCHC 31.4 L RDW 17.6 H Plt Count 199 MPV 10.3 PT with INR 23.30 H INR 1.96 H Sodium Potassium Chloride Carbon Dioxide Anion Gap BUN Creatinine Est GFR (CKD-EPI)AfAm Est GFR (CKD-EPI)NonAf POC Glucometer 300 Random Glucose Calcium Phosphorus Magnesium 04/18/19 04/18/19 06:10 06:19 WBC RBC Hgb Hct MCV MCH MCHC RDW Plt Count MPV PT with INR INR Sodium 135 L Potassium 4.3 Chloride 101 Carbon Dioxide 32 Anion Gap 2 L BUN 32.5 H Creatinine 1.0 Est GFR (CKD-EPI)AfAm 87.37 Est GFR (CKD-EPI)NonAf 75.39 POC Glucometer 175 Random Glucose 151 H Calcium 7.8 L Phosphorus 3.9 Magnesium 2.0 HOSPITAL COURSE: Date of Admission:04/15/19 The patient is a 68-year-old male with PMH of CVA, peripheral neuropathy, IDDM, CHF, HTN, [place] (s/p CABG 1 month ago), HLD, COPD (on 4L O2 at home), GERD, CKD, who presents to the ED with progressively worsening shortness of breath that began at 3AM before admission. The patient states that the shortness of breath woke him out of sleep. gasper day prior patient had a very salty meal at [employer] day constitution party. He generally is noncompliant with salt and water restriction. He was admitted for CHF exacerbation. Over hosptial course, he was diuresed and started on new cardiac meds. he was discharged to rehab on imdur 30d, toprol 25 bid, hydralazine 10 bid, lasix 80 po bid, asa 81d and crestor 20hs. he was not started on arb/acei due to prior adverse reaction of elevated creat Date of Discharge: 04/18/19 Minutes to complete discharge: 35 Discharge Summary Reason For Visit: CHF Current Active Problems Congestive heart failure (CHF) (Acute) Condition: Stable - Instructions Diet, Activity, Other Instructions: you were in the hospital because of worsening heart failure. this latest episode was caused by increased salt intake during Fathers Day meal. Please be very careful about the amount of fluid and salt you consume because a single meal can cause someone like you to end up back in the hospital. Limit you intake of fluid to 1L per day in total. Limit your intake of salt to 2g per day total (read the labels of any food items you eat for Sodium (=salt) content per serving); be aware that even if certain foods ont taste salty, they may still have a lot of salt in them. As a rule, avoid fast food, canned foods and frozen foods. Some changes were made to your medications. Stop taking: Furosemide 40 mg twice a day Metoprolol Tartrate 25 mg twice a day New Medications: Furosemide 80 mg twice a day Metoprolol Succinate 25 mg twice a day Imdur 30 mg daily hydralazine 10 mg twice a day crestor 20 mg at night aspirin 81 mg daily Your medications were sent to [facility] pharmacy you listed Please follow up with cardiology Dr Moore and your primary physician within a week Return to the hospital if sever symptoms recur Referrals: Vin Isbell MD [Primary Care Provider] - Lucrecia Moore MD [Staff Physician] - [facility]position[facility] - Home Medications Comprehensive Discharge Medication List: Ambulatory Orders Ferrous Sulfate [Feosol] 325 mg PO DAILY 04/15/19 Fluticasone Propionate 16 gm NS DAILY 04/15/19 Folic Acid - 1 mg PO DAILY 04/15/19 Insulin (LOG) Aspart [NovoLOG -] 0 units SQ ASDIR 04/15/19 Lansoprazole [Prevacid -] 30 mg PO DAILY 04/15/19 Oxycodone HCl 10 mg PO Q4H 04/15/19 Potassium Chloride [K-Dur -] 10 meq PO DAILY 04/15/19 Pregabalin [Lyrica -] 75 mg PO TID 04/15/19 Rosuvastatin [Crestor -] 20 mg PO DAILY 04/15/19 Tamsulosin HCl [Flomax -] 0.4 mg PO DAILY 04/15/19 Warfarin Na [Coumadin -] 5 mg PO DAILY@1800 04/15/19 Aspirin [ASA -] 81 mg PO DAILY #30 tab.chew 04/18/19 Furosemide [Lasix -] 80 mg PO BID@0600,1400 #60 tablet 04/18/19 Isosorbide Mononitrate [Imdur -] 30 mg PO DAILY #30 tab.sr.24h 04/18/19 Metoprolol Succinate [Toprol XL -] 25 mg PO BID #60 tab.sr.24h 04/18/19 Rosuvastatin [Crestor -] 20 mg PO HS #30 tablet 04/18/19 hydrALAZINE HCL [Apresoline -] 10 mg PO BID #60 tablet 04/18/19 Problem List - Problems (1) Congestive heart failure (CHF) Code(s): I50.9 - HEART FAILURE, UNSPECIFIED Qualifiers: Heart failure type: other Qualified Code(s): I50.9 - Heart failure, unspecified (2) BRANT (acute kidney injury) Code(s): N17.9 - ACUTE KIDNEY FAILURE, UNSPECIFIED (3) Acute on chronic systolic and diastolic heart failure, NYHA class 2 Code(s): I50.43 - ACUTE ON CHRONIC COMBINED SYSTOLIC AND DIASTOLIC HRT FAIL (4) CAD (coronary artery disease) Code(s): I25.10 - ATHSCL HEART DISEASE OF [place] CORONARY ARTERY W/O ANG PCTRS Qualifiers: [place] vs. transplanted heart: [place] heart Associated angina: without angina (5) CKD (chronic kidney disease) Code(s): N18.9 - CHRONIC KIDNEY DISEASE, UNSPECIFIED Qualifiers: Chronic kidney disease stage: stage 2 (mild) Qualified Code(s): N18.2 - Chronic kidney disease, stage 2 (mild) (6) COPD (chronic obstructive pulmonary disease) Code(s): J44.9 - CHRONIC OBSTRUCTIVE PULMONARY DISEASE, UNSPECIFIED (7) Chronic pain Code(s): G89.29 - OTHER CHRONIC PAIN (8) Diabetes mellitus Code(s): E11.9 - TYPE 2 DIABETES MELLITUS WITHOUT COMPLICATIONS Qualifiers: Diabetes mellitus type: type 2 Diabetes mellitus longterm insulin use: with longterm use Diabetes mellitus complication status: with circulatory complication Diabetes mellitus complication detail: with peripheral angiopathy with gangrene Qualified Code(s): E11.52 - Type 2 diabetes mellitus with diabetic peripheral angiopathy with gangrene (9) Dyspnea Code(s): R06.00 - DYSPNEA, UNSPECIFIED This patient is new to me today: No Emergency Visit: Yes ED Registration Date: 04/15/19 Care time: The patient presented to the Emergency Department on the above date and was hospitalized for further evaluation of their emergent condition. Critical Care patient: No - Discharge Referral Referred to [facility] Med P.C.: No
[2019-04-18 09:49] VITALS: BP 139/80; PULSE 62; TEMP 98.2
[2019-04-18] MEDS: ASPIRIN 81 MG CHEWABLE TABLETS PO SCH (11:10)
[2019-04-18] MEDS: PANTOPRAZOLE 40 MG TABLET (FP) PO SCH (11:10)
[2019-04-18] MEDS: TAMSULOSIN HCL 0.4 MG CAP PO SCH (11:10)
[2019-04-18] MEDS: hydrALAZINE HCL 10 MG TABLET PO SCH (11:10)
[2019-04-18] MEDS: FOLIC ACID 1 MG TABLET (FP) PO SCH (11:10)
[2019-04-18] MEDS: FERROUS SO4 325 MG TABLET (FP) PO SCH (11:11)
[2019-04-18] MEDS: FLUTICASONE PROP 0.05% 16 GM NASAL SPRAY NS SCH (11:11)
[2019-04-18] MEDS: metoPROLOL SUCCINATE 25 MG TAB.SR.24H (FP) PO SCH (11:11)
[2019-04-18] MEDS: ISOSORBIDE MONONITRATE 30 MG TAB.SR.24H (FP) PO SCH (11:11)
--- NOTE | 2019-04-18 12:07 | PN ---
Progress Note (short form) - Note Progress Note: s: sob at baseline. no chest pain, palps, dizziness Current Medications Generic Name Dose Route Start Last Admin Trade Name Freq PRN Reason Stop Dose Admin Acetaminophen 650 mg 04/15/19 15:33 04/16/19 22:09 Tylenol - PO 650 mg Q4H PRN Administration FEVER Aspirin 81 mg 04/16/19 10:00 04/18/19 11:10 Asa - PO 81 mg DAILY RADHA Administration Ferrous Sulfate 325 mg 04/16/19 10:00 04/18/19 11:11 Feosol - PO 325 mg DAILY RADHA Administration Fluticasone Propionate 2 spray 04/16/19 10:00 04/18/19 11:11 Flonase - NS 2 sprays DAILY RADHA Administration Folic Acid 1 mg 04/16/19 10:00 04/18/19 11:10 Folic Acid - PO 1 mg DAILY RADHA Administration Furosemide 80 mg 04/17/19 14:00 04/18/19 06:23 Lasix - PO 80 mg BID@0600,1400 RADHA Administration Hydralazine HCl 10 mg 04/15/19 22:00 04/18/19 11:10 Apresoline - PO 10 mg BID RADHA Administration Insulin Aspart 1 vial 04/15/19 16:30 04/18/19 12:01 Novolog Vial Sliding Scale - SQ Not Given ACHS [facility] Protocol Isosorbide Mononitrate 30 mg 04/16/19 10:00 04/18/19 11:11 Imdur - PO 30 mg DAILY RADHA Administration Metoprolol Succinate 25 mg 04/15/19 22:00 04/18/19 11:11 Toprol Xl - PO 25 mg BID RADHA Administration Oxycodone HCl 10 mg 04/15/19 15:45 04/18/19 08:37 Roxicodone - PO 10 mg Q4H RADHA Administration Pantoprazole Sodium 40 mg 04/16/19 10:00 04/18/19 11:10 Protonix - PO 40 mg DAILY RADHA Administration Pregabalin 75 mg 04/15/19 22:00 04/18/19 06:23 Lyrica - PO 75 mg TID RADHA Administration Rosuvastatin Calcium 20 mg 04/16/19 22:00 04/17/19 21:39 Crestor - PO 20 mg HS RADHA Administration Tamsulosin HCl 0.4 mg 04/16/19 10:00 04/18/19 11:10 Flomax - PO 0.4 mg DAILY RADHA Administration Warfarin Sodium 5 mg 04/15/19 18:00 04/17/19 17:33 Coumadin - PO 5 mg DAILY@1800 RADHA Administration Vital Signs Period Temp Pulse Resp BP Sys/Chandra Pulse Ox Last 24 Hr 97.0 F-98.2 F 57-66 18-20 129-140/68-80 99-99 nad no jvd rrr s1s2 no mrg cta bl aaox3 no le e/c/c abd nt nd pos bs no jaundice diaphoresis CBC, BMP 04/18/19 06:10 04/18/19 06:10 ecg: a paced, V paced, PVC LHC 05/15: 70-80% mRCA (ISR), 70-80% RPDA (ISR); 70-80% mLAD; 80-90% pLCX (small vessel); 90-95% OM2 (large vessel); 80-90% prox Ramus (large vessel) ...nonobstructive dz of note -69% ostial RCA, 50-60% eccentric lesion OM1 (large vessel); EDP 30-->25 post-nitro EF 38% (diffuse WMAs) Syntax score 20 Echo 10/29/18: mod LVE, mild global LV hypo (45-50%). RV tds. mild TR. no vegetations noted Echo 05/15: mod to sev decr LVEF; severe hypokinesis of all lindsey except basal segments. nl RV. mild MR/TR. no peric eff. 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 a/p: 69M h/o dm, ckd (1.5-2), CVA 10/2014, CAD s/p STEMI and multiple pci's, s/p CABG 02/2019, s/p PPM, ischemic CM with systolic chf, COPD, extensive smoking history (quit 12/2016) here with sob acute on chronic syst CHF, ischemic cardiomyopathy -mildly reduced EF on last echo - tds here, will reevaluate as outpatient - s/p CABG 02/2019 - likely CHF exac in setting of dietary indiscretion -cont home metoprolol (change to succinate for CHF indication), imdur, hydralazine for chf regimen - not on ACEI due to hx BRANT with Cr 2.5 while on ACEIwith poor followup for labs in the past - cont po lasix now CAD: -2004 s/p PCI ([facility]) to 100% occl RPDA ([facility]) with patent prior RCA stents at that time, EF 50% then; -2011 s/p anterior STEMI 2011 with [place] LIBBY x 2 to mid LAD then ([facility]); residual 80% prox D1 (large vessel), 95% mD1; 70%mRCA (pre and post prior stents), 70% dCFX; (also 40% RPDA; 60% pCFX; 40% mCFX;) EF then 37% with AK of apex/AL lindsey and AK of IW; -2016 s/p NSTEMI in setting of sepsis/PNA-->[facility] with 70-80% mRCA (ISR), 70-80% RPDA (ISR); 70-80% mLAD; 80-90% pLCX (small vessel); 90-95% OM2 (large vessel); 80-90% prox Ramus (large vessel), 30-50% ostial RCA, 50-60% eccentric lesion OM1 (large vessel); - NSTEMI 02/2019, now s/p CABG at 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 acute CVA/TIA 11/13 - now on warfarin and aspirin cardiac patterson stable for snf
== END 2019-04-18 12:07 | DRG 291 ==
LOC: JER 11:01 → JERBED 13:18 → J4W 16:40
PROVIDERS: ADMIT Internal Medicine; ATTEND Internal Medicine
DX: I13.0 Hypertensive heart and chronic kidney disease with heart failure and stage 1 through stage 4 chronic kidney disease, or unspecified chronic kidney disease (principal); I50.23 Acute on chronic systolic (congestive) heart failure; J96.00 Acute respiratory failure, unspecified whether with hypoxia or hypercapnia; J96.10 Chronic respiratory failure, unspecified whether with hypoxia or hypercapnia; E11.22 Type 2 diabetes mellitus with diabetic chronic kidney disease; I50.9 Heart failure, unspecified; N18.2 Chronic kidney disease, stage 2 (mild); E11.42 Type 2 diabetes mellitus with diabetic polyneuropathy; I44.1 Atrioventricular block, second degree; I25.2 Old myocardial infarction; I25.5 Ischemic cardiomyopathy; Z95.1 Presence of aortocoronary bypass graft; I48.91 Unspecified atrial fibrillation; E78.5 Hyperlipidemia, unspecified; J44.9 Chronic obstructive pulmonary disease, unspecified; Z99.81 Dependence on supplemental oxygen; Z86.73 Personal history of transient ischemic attack (TIA), and cerebral infarction without residual deficits; K21.9 Gastro-esophageal reflux disease without esophagitis; Z79.4 Long term (current) use of insulin; I25.10 Atherosclerotic heart disease of native coronary artery without angina pectoris; Z87.891 Personal history of nicotine dependence; Z95.0 Presence of cardiac pacemaker
CPT/HCPCS: 36415; 71045-TC-FY; 80048; 80053; 81003; 82803; 82962; 83605; 83735; 83880; 84100; 84484; 85025; 85027; 85610; 85730; 87040; 87086; 93005; 93010; 93306-TC; 97116-GP; 97162-GP; 99285-25

== ENCOUNTER 2019-11-09 12:51 | Inpatient (IN) | payer OTHER ==
[2019-11-09] MEDS ORDERED: ONDANSETRON 4 MG/2 ML VIAL IVPUSH ONE (13:53)
[2019-11-09] MEDS ORDERED: SODIUM CHLORIDE 0.9% 500 ML INFUS.BAG IV ONE ×2 (13:53→13:55)
--- NOTE | 2019-11-09 14:04 | PDOC ---
History of Present Illness - General Chief Complaint: Nausea/Vomiting Stated Complaint: VOMITING Time Seen by Provider: 11/09/19 13:18 - History of Present Illness Initial Comments: 69M PMH COPD (home O2 7.2L), HTN, HLD, CAD, CHF, CKD, DM, prior CVA, prior ACS BIBEMS for 3 days of nausea, nbnb vomiting, and diarrhea. Denies abdominal pain and prior abdominal surgery. Endorses he was on warfarin in the past but believes he is no longer on it, unsure if he is on a different AC. Denies fevers , chills, chest pain. Endorses SOB - when asked regarding more details patient repeatedly states he has been short of breath for 3 years and that's when he started home O2. Pt is a poor historian w/ limited medical insight. Family at bedside noted there was dark stool on the ground at home. [facility] PCP Vin Isbell Lives at home w/ and children Past History - Past Medical History Allergies/Adverse Reactions: Allergies Allergy/AdvReac Type Severity Reaction Status Date / Time No Known Allergies Allergy Verified 11/09/19 13:10 Home Medications: Ambulatory Orders Ferrous Sulfate [Feosol] 325 mg PO DAILY 04/15/19 Fluticasone Propionate 16 gm NS DAILY 04/15/19 Folic Acid - 1 mg PO DAILY 04/15/19 Insulin (LOG) Aspart [NovoLOG -] 0 units SQ ASDIR 04/15/19 Lansoprazole [Prevacid -] 30 mg PO DAILY 04/15/19 Oxycodone HCl 10 mg PO Q4H 04/15/19 Potassium Chloride [K-Dur -] 20 meq PO DAILY 04/15/19 Pregabalin [Lyrica -] 75 mg PO TID 04/15/19 Rosuvastatin [Crestor -] 20 mg PO DAILY 04/15/19 Tamsulosin HCl [Flomax -] 0.4 mg PO DAILY 04/15/19 Warfarin Na [Coumadin -] 5 mg PO DAILY@1800 04/15/19 Aspirin [ASA -] 81 mg PO DAILY #30 tab.chew 04/18/19 Furosemide [Lasix -] 80 mg PO BID@0600,1400 #60 tablet 04/18/19 Isosorbide Mononitrate [Imdur -] 30 mg PO DAILY #30 tab.sr.24h 04/18/19 Metoprolol Succinate [Toprol XL -] 25 mg PO BID #60 tab.sr.24h 04/18/19 Rosuvastatin [Crestor -] 20 mg PO HS #30 tablet 04/18/19 hydrALAZINE HCL [Apresoline -] 10 mg PO BID #60 tablet 04/18/19 Lisinopril [Zestril] 2.5 mg PO DAILY 11/09/19 Morphine Sulfate 30 mg PO BID 11/09/19 Oxycodone HCl 20 mg PO Q4H PRN 11/09/19 Pantoprazole Sodium 40 mg PO DAILY 11/09/19 Anemia: No Asthma: No Cancer: No Cardiac Disorders: Yes (9 stents, [place], CAD, cardiomyopathy) CVA: Yes (stroke x 2) COPD: Yes CHF: No Dementia: No Diabetes: Yes GI Disorders: Yes (colitis, GERD) Disorders: Yes HTN: Yes Hypercholesterolemia: Yes Kidney Stones: Yes Liver Disease: No Seizures: No Thyroid Disease: No - Surgical History Abdominal Surgery: No Appendectomy: No Cardiac Surgery: Yes (stents x 9) Cholecystectomy: No Lung Surgery: No Neurologic Surgery: No Orthopedic Surgery: No - Immunization History Immunization Up to Date: No - Psycho Social/Smoking Cessation Hx Smoking Status: No Smoking History: Former smoker Have you smoked in the past 12 months: No Number of Cigarettes Smoked Daily: 30 If you are a former smoker, when did you quit?: 3 years Cigars Per Day: 0 Information on smoking cessation initiated: No 'Breaking Loose' booklet given: 01/12/17 Hx Alcohol Use: No Drug/Substance Use Hx: No Substance Use Type: None Hx Substance Use Treatment: No Review of Systems - Review of Systems Comments:: Limited 2/2 poor historian CONSTITUTIONAL: Denies F / C RESP: Endorses SOB CARD: Denies chest pain, palpitations GI: Endorses N/V/D, PO intolerant. Denies abdominal pain, inability to tolerate PO : Denies dysuria, hematuria, frequency EXT: Endorses LE edema *Physical Exam - Vital Signs Last Vital Signs Temp Pulse Resp BP Pulse Ox 99.3 F 71 20 102/41 L 99 11/09/19 13:43 11/09/19 13:11 11/09/19 13:11 11/09/19 13:11 11/09/19 13:18 - Physical Exam VS: AF, SaO2 95% 3L NC GEN: Moderate distress. Awake and alert. HEENT: NC/AT. No facial asymmetry. Moist mucous membranes. Normal voice. Supple neck w/ FROM. CV: S1/S2, RRR, no m/r/g LUNG: Limited. CTAB, no wheezes, crackles, rales, rhonchi. GI: Active retching, w/ 1 episode of thick yellow emesis. Soft, ndnt, +BS, no guarding, no rebound. No masses. RECTAL: Exam chaperoned by CLAUDIA Cao. No hemorrhoids on inspection, no active bleeding or discharge from anus. Normal sphincter tone. No masses or nodules of the rectal vault palpated. +Tenderness on Rectal exam. No fecal impaction. + blood (dilute, red), stool was light liquid brown on glove. EXTREMITIES: 2+ pitting edema b/l LE. No obvious deformities of all extremities. SKIN: Warm, dry PSYCH: Normal mood and affect. NEURO: Moving all extremities Procedures - Central Line Central Line Lumen: double Central Line Position: femoral (R) Anesthesia: 1% Lidocaine Amount of anesthesia (ccs): 2 Complications: none Post Central Line Insertion: sutured, good blood return Progress: 11/09/19 17:53 Right femoral shiley catheter inserted under ultrasound guidance and confirmation. Procedure completed under sterile conditions. approx 2cc lidocaine used both ports with good flush and return. ED Treatment Course - LABORATORY CBC & Chemistry Diagram: 11/13/19 05:27 11/13/19 05:27 - RADIOLOGY Radiology Studies Ordered: Category Date Time Status CHEST X-RAY PORTABLE* [RAD] Stat Radiology 11/09/19 13:44 Ordered Medical Decision Making - Critical Care Time Total Critical Care Time (minutes): 30 Critical Care Statement: The care of this patient involved high complexity decision making to prevent further life threatening deterioration of the patient 's condition and/or to evaluate & treat vital organ system(s) failure or risk of failure. - Medical Decision Making 11/09/19 13:58 69M PMH COPD (home O2 7.2L), HTN, HLD, CAD, CHF, CKD, DM, prior CVA, prior ACS BIBEMS for 3 days of nausea, nbnb vomiting, and diarrhea. Retching w/ one episode of thick yellow nbnb vomiting. +blood on rectal. - CBC, CMP, CARDIAC, COAGS, LIPASE, VBG - EKG - CXR - CT A/P 11/09/19 14:55 acidosis pH 7.01 T&S hemolyzed 11/09/19 15:39 Pt (proxy) - pt is more confused, does properly answer all questions but is not himself. d/w lab - machine is down 11/09/19 15:49 labs reviewed cardiology c/s (seen Dr. Moore / Linda in past) renal c/s (none on record) 11/09/19 15:59 d/w Dr. Moore: given hx and current available labs, recs trend trop, echo, hold AC. Pt has lots of comorbidities and was lost to f/u after a recent stay at [facility]. ED team d/w Dr. Cobian: HD today, ICU 11/09/19 16:06 H/H reassuring Shiley cath 11/09/19 16:14 ICU will come and see 11/09/19 16:39 consent for central line obtained by pt proxy 11/09/19 18:33 A shiley catheter was placed in the right femoral vein under ultrasound guidance , see procedure note. Pt then went to ICU Discharge - Discharge Information Problems reviewed: Yes Clinical Impression/Diagnosis: Acute renal failure, Hyperkalemia, Elevated troponin Congestive heart failure (CHF) Qualifiers: Heart failure type: other Qualified Code(s): I50.9 - Heart failure, unspecified Condition: Guarded Disposition: HOME - Admission Yes - Follow up/Referral - Patient Discharge Instructions - Post Discharge Activity
[2019-11-09 14:47] LABS: VENOUS PO2 < 49 mmHg (28-48)
[2019-11-09 14:49] LABS: VENOUS PH 7.01 (7.31-7.41)
--- NOTE | 2019-11-09 14:54 | PDOC ---
Documentation entered by Baljit Stephenson SCRIBE, acting as scribe for Jazlyn Pratt MD. Jazlyn Pratt MD: This documentation has been prepared by the Seema jones Xhesika, SCRIBE, under my direction and personally reviewed by me in its entirety. I confirm that the documentation accurately reflects all work, treatment, procedures, and medical decision making performed by me. Attending Attestation - Resident Resident Name: Vin Sánchez - HPI HPI: 11/09/19 14:43 The patient is a 69 year old male with a significant PMH of COPD (home O2 7.2L) , HTN, HLD, CAD, CHF, CKD, DM, prior CVA, prior ACS who presents to the emergency department for 3 days of nausea, nbnb vomiting, and diarrhea. Patient reports associated SOB, however, it is chronic and the patient is on home O2.History is limited due to patient being a poor historian. The patient denies chest pain, headache and dizziness. Denies fever, chills, cough, and constipation. Denies dysuria, frequency, urgency and hematuria. Allergies: NKDA - Physicial Exam PE: 11/09/19 14:50 Agree with resiident exam. Patient is alert and oriented and appears mildly uncomfortable. Abdomen is soft, non distended and non tender. Ext: + 1 pitting edema to mid calf bilaterally. - Critical Care Time Total Critical Care Time: 30 Critical Care Statement: The care of this patient involved high complexity decision making to prevent further life threatening deterioration of the patient 's condition and/or to evaluate & treat vital organ system(s) failure or risk of failure. - Medical Decision Making 11/09/19 14:52 pt presents to the Ed complaining of diarrhea, nausea and vomiting. + gross blood on rectal exam and active vomiting in the ED. Differential includes sepsis, DKa, GI bleed, intraabdomial pathology such as SBO or diverticulitis. Will check labs, CXR and CT abdomen pelvis, admit to medicine for continued management. 11/09/19 15:49 Labs show severe acute renal failure with cr of 5.6 and [place] [id number]. Sbp 98. Will call cardiology and renal. Will consider central line. Will consult critical care. 11/09/19 15:54
[2019-11-09 14:58] LABS: INR 1.03 (0.83-1.09); PROTHROMBIN TIME (PATIENT) 12.1 SEC (9.7-13.0)
[2019-11-09 15:00] LABS: ACTIVATED PTT 32.7 SECONDS (25.2-36.5)
[2019-11-09 15:05] LABS: MAGNESIUM 1.8 mg/dL (1.8-2.4)
--- NOTE | 2019-11-09 15:07 | EKG ---
Test Reason : Blood Pressure : / mmHG Vent. Rate : 098 BPM Atrial Rate : 067 BPM P-R Int : 190 ms QRS Dur : 200 ms QT Int : 466 ms P-R-T Axes : 022 258 011 degrees QTc Int : 594 ms Atrial-sensed ventricular-paced rhythm WITH FREQUENT PREMATURE VENTRICULAR COMPLEXES ABNORMAL ECG WHEN COMPARED WITH ECG OF 15-APR-2019 11:02, VENT. RATE HAS INCREASED BY 29 BPM Confirmed by DELILAH BRADLEY, EDENILSON ([id number]) on 11/09/2019 3:07:10 PM Referred By: Confirmed By:EDENILSON MAZARIEGOS MD
[2019-11-09 15:29] LABS: HYALINE CASTS 12 /lpf (0-8); URINE APPEARANCE CLEAR; URINE BACTERIA 0.2 /hpf (NEGATIVE); URINE BILIRUBIN NEGATIVE (NEGATIVE); URINE COLOR YELLOW; URINE GLUCOSE (UA) NEGATIVE (NEGATIVE); URINE KETONE NEGATIVE (NEGATIVE); URINE LEUK ESTERASE 2+ (NEGATIVE); URINE NITRITE NEGATIVE (NEGATIVE); URINE PROTEIN TRACE (NEGATIVE); URINE UROBILINOGEN 0.2 mg/dL (0.2-1.0); URINE WBC 22 /hpf (0-5)
[2019-11-09 15:41] LABS: ALBUMIN 3.8 g/dl (3.4-5.0); ALK PHOS 126 U/L (45-117); ANION GAP 11 MMOL/L (8-16); BILIRUBIN,TOTAL 0.3 mg/dL (0.2-1); CHLORIDE 110 mmol/L (98-107); CO2 13 mmol/L (21-32); CREATININE 5.6 mg/dL (0.55-1.3); GLUCOSE,RANDOM 118 mg/dL (74-106); N-TERMINAL BNP > 35000.0 pg/ml (5-125); PHOSPHOROUS 8.4 mg/dL (2.5-4.9); SGOT/AST 52 U/L (15-37); SGPT/ALT 35 U/L (13-61); SODIUM 134 mmol/L (136-145); TOT PROT 7.3 g/dl (6.4-8.2)
[2019-11-09 15:52] LABS: BASO % 0.8 % (0-2.0); BLOOD UREA NITROGEN 140.7 mg/dL (7-18); HEMATOCRIT 36.3 % (35.4-49); HEMOGLOBIN 11.1 GM/dL (11.7-16.9); LYMPH % 3.5 % (8-40); MCH 28.6 pg (25.7-33.7); MCHC 30.7 g/dl (32.0-35.9); MEAN CELL VOLUME 93.1 fl (80-96); MEAN PLT VOLUME 10.3 fl (7.5-11.1); MONO % 3.2 % (3.8-10.2); NEUT % 92.5 % (42.8-82.8); PLATELET COUNT 185 K/MM3 (134-434); POTASSIUM 7.8 mmol/L (3.5-5.1); RDW 17.8 % (11.9-15.9); WHITE BLOOD COUNT 11.4 K/mm3 (4.0-10.0)
[2019-11-09] MEDS ORDERED: SODIUM BICARBONATE 4.2% 5 MEQ/10 ML DISP.SYRIN IVPUSH ONE (16:21)
[2019-11-09] MEDS ORDERED: CALCIUM GLUCONATE 10% - 1,000 MG/10 ML VIAL IVPUSH ONE (16:21)
[2019-11-09] MEDS ORDERED: DEXTROSE 50%-WATER - 25 GM/50 ML VIAL IVPUSH ONE (16:21)
[2019-11-09] MEDS ORDERED: INSULIN REGULAR HUMAN 100 UNITS/ML *VIAL IVPUSH ONE (16:21)
[2019-11-09] MEDS ORDERED: DEXTROSE 50%-WATER 25 GM/50 ML DISP.SYRIN ONE (16:27)
[2019-11-09] MEDS ORDERED: CALCIUM GLUCONATE 10% - 1,000 MG/10 ML VIAL ONE (16:27)
[2019-11-09] MEDS ORDERED: INSULIN REGULAR HUMAN 100 UNITS/ML *VIAL ONE (16:27)
[2019-11-09] MEDS ORDERED: SODIUM BICARBONATE 8.4% 50 MEQ/50 ML VIAL ONE (16:28)
[2019-11-09 16:43] LABS: URINE RBC 20.1 /hpf (0-4)
[2019-11-09 16:51] LABS: CREATININE 5.6 mg/dL (0.55-1.3)
[2019-11-09 16:56] LABS: POTASSIUM 7.3 mmol/L (3.5-5.1)
[2019-11-09 17:29] LABS: PLATELET ESTIMATE ADEQUATE
--- NOTE | 2019-11-09 17:56 | CONSULT ---
Consult Consult Specialty:: Nephrology Reason for Consultation:: BRANT - History of Present Illness Chief Complaint: shortness of breath, nausea and vomiting History of Present Illness: Pt is a 69 year old male with pmhx of chf, valvular heart disease, copd on home oxygen, htn, hld, cad, ckd, dm and cva who presents to the ER complaining of nausea and vomiting. He also had diarrhea. He complains of increased shortness of breath. He has been taking his diuretics but not making much urine. His is at bedside who was able to assist with history. She denies history of CKD. She says he follows with his primary and a cardiology is [facility]. She does not think he was using nsaids. I was called to evaluate him for acute renal failure and fluid overload. 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 Cardio/Vascular: Yes: CHF, HTN, Hyperlipdemia, Hyperlipdemia, [place] Pulmonary: Yes: COPD, O2 Dependent, Pneumonia, Previously Intubated Gastrointestinal: Yes: Other, GERD, Other Renal/: Yes: Renal Inusuff, Other Infectious Disease: Yes: MRSA Psych: Yes: Addictions Musculoskeletal: Yes: Other, Other Endocrine: Yes: Diabetes Mellitus - Past Surgical History Past Surgical History: Yes: CABG (4v), Permanent Pacemaker, Stent (PCIX5) - Alcohol/Substance Use Hx Alcohol Use: No History of Substance Use: reports: None - Smoking History Smoking history: Former smoker Have you smoked in the past 12 months: No Aproximately how many cigarettes per day: 30 If you are a former smoker, when did you quit?: 3 years - Social History Usual Living Arrangement: With Spouse ADL: Family Assistance History of Recent Travel: No Home Medications - Allergies Allergies/Adverse Reactions: Allergies Allergy/AdvReac Type Severity Reaction Status Date / Time No Known Allergies Allergy Verified 11/09/19 13:10 - Home Medications Home Medications: Ambulatory Orders Ferrous Sulfate [Feosol] 325 mg PO DAILY 04/15/19 Fluticasone Propionate 16 gm NS DAILY 04/15/19 Folic Acid - 1 mg PO DAILY 04/15/19 Insulin (LOG) Aspart [NovoLOG -] 0 units SQ ASDIR 04/15/19 Lansoprazole [Prevacid -] 30 mg PO DAILY 04/15/19 Oxycodone HCl 10 mg PO Q4H 04/15/19 Potassium Chloride [K-Dur -] 20 meq PO DAILY 04/15/19 Pregabalin [Lyrica -] 75 mg PO TID 04/15/19 Rosuvastatin [Crestor -] 20 mg PO DAILY 04/15/19 Tamsulosin HCl [Flomax -] 0.4 mg PO DAILY 04/15/19 Warfarin Na [Coumadin -] 5 mg PO DAILY@1800 04/15/19 Aspirin [ASA -] 81 mg PO DAILY #30 tab.chew 04/18/19 Furosemide [Lasix -] 80 mg PO BID@0600,1400 #60 tablet 04/18/19 Isosorbide Mononitrate [Imdur -] 30 mg PO DAILY #30 tab.sr.24h 04/18/19 Metoprolol Succinate [Toprol XL -] 25 mg PO BID #60 tab.sr.24h 04/18/19 Rosuvastatin [Crestor -] 20 mg PO HS #30 tablet 04/18/19 hydrALAZINE HCL [Apresoline -] 10 mg PO BID #60 tablet 04/18/19 Lisinopril [Zestril] 2.5 mg PO DAILY 11/09/19 Morphine Sulfate 30 mg PO BID 11/09/19 Oxycodone HCl 20 mg PO Q4H PRN 11/09/19 Pantoprazole Sodium 40 mg PO DAILY 11/09/19 Family Medical History Family History: Denies Review of Systems - Review of Systems Constitutional: reports: Malaise Eyes: reports: No Symptoms HENT: reports: No Symptoms Cardiovascular: reports: Edema, Shortness of Breath Gastrointestinal: reports: Nausea, Vomiting Musculoskeletal: reports: Muscle Weakness Neurological: reports: Other (asterixis) Physical Exam Vital Signs: Vital Signs Temperature 99.3 F 11/09/19 13:43 Pulse Rate 67 11/09/19 17:00 Respiratory Rate 22 H 11/09/19 17:00 Blood Pressure 80/66 L 11/09/19 17:00 O2 Sat by Pulse Oximetry (%) 99 11/09/19 17:00 Constitutional: Yes: Moderate Distress Eyes: Yes: Conjunctiva Clear HENT: Yes: Atraumatic Cardiovascular: Yes: S1, S2 Respiratory: Yes: On Nasal O2, Rhonchi Gastrointestinal: Yes: Soft, Abdomen, Obese Renal/: Yes: Incontinence Musculoskeletal: Yes: Muscle Weakness Edema: Yes Edema: LLE: 3+, RLE: 3+ Neurological: Yes: Confusion, Lethargy Labs: CBC, BMP 11/09/19 14:00 11/09/19 16:10 Imaging - Results Chest X-ray: Report Reviewed Problem List - Problems (1) BRANT (acute kidney injury) Code(s): N17.9 - ACUTE KIDNEY FAILURE, UNSPECIFIED (2) Abnormal chest x-ray Code(s): R93.8 - ABNORMAL FINDINGS ON DI[facility]NOSTIC IMAGING OF [place] * DO NOT USE * Assessment/Plan Current Medications Generic Name Dose Route Start Last Admin Trade Name Freq PRN Reason Stop Dose Admin Chlorhexidine Gluconate 1 applic 11/09/19 22:00 Hibiclens For Decolonization - TP HS RADHA Mupirocin 1 applic 11/09/19 22:00 Bactroban Ointment (For Decolonization) - NS 11/14/19 21:59 BID RADHA Impression 1. BRANT 2. hyperkalemia 3. metaboli acidosis 4. chf 5. uremia 6. fluid overload 7. chf 8. copd 9. cva Plan - discussed options with at length and she agrees to HD - ER will place access - arranged for bedside dialysis - admit to ICU - treat potassium medically in the meantime - keep on tele monitor - place steinberg - will need renal ultrasound - discussed with ER team
[2019-11-09] MEDS ORDERED: SODIUM CHLORIDE 250 ML IV PRN (18:00)
[2019-11-09] MEDS ORDERED: ALBUMIN HUMAN 25% 12.5 GM/50 ML VIAL IVPB SCH (18:00)
--- NOTE | 2019-11-09 18:17 | HP ---
Admitting History and Physical - Primary Care Physician PCP: Vin Isbell - Admission Chief Complaint: nausea and vomiting History of Present Illness: 69 year old male with multiple comorbidities including COPD on home 02, CAD s/p CABG, CKD, DM2, CVA presents to ED after episodes of nausea, vomiting for 3 days and melena. Patient states he has had dark stool for months and has had progressively worsening TALLEY. Patient is a poor historian, no further history can be obtained at this time. 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 Cardiovascular: Yes: CHF, HTN, Hyperlipdemia, Hyperlipdemia, [place] Pulmonary: Yes: COPD, O2 Dependent, Pneumonia, Previously Intubated Gastrointestinal: Yes: Other, GERD, Other Renal/: Yes: Renal Inusuff, Other Infectious Disease: Yes: MRSA Psych: Yes: Addictions Musculoskeletal: Yes: Other, Other Endocrine: Yes: Diabetes Mellitus - Past Surgical History Past Surgical History: Yes: CABG (4v), Permanent Pacemaker, Stent (PCIX5) - Smoking History Smoking history: Former smoker Have you smoked in the past 12 months: No Aproximately how many cigarettes per day: 30 If you are a former smoker, when did you quit?: 3 years - Alcohol/Substance Use Hx Alcohol Use: No History of Substance Use: reports: None - Social History ADL: Family Assistance History of Recent Travel: No Home Medications - Allergies Allergies/Adverse Reactions: Allergies Allergy/AdvReac Type Severity Reaction Status Date / Time No Known Allergies Allergy Verified 11/09/19 13:10 - Home Medications Home Medications: Ambulatory Orders Ferrous Sulfate [Feosol] 325 mg PO DAILY 04/15/19 Fluticasone Propionate 16 gm NS DAILY 04/15/19 Folic Acid - 1 mg PO DAILY 04/15/19 Insulin (LOG) Aspart [NovoLOG -] 0 units SQ ASDIR 04/15/19 Lansoprazole [Prevacid -] 30 mg PO DAILY 04/15/19 Oxycodone HCl 10 mg PO Q4H 04/15/19 Potassium Chloride [K-Dur -] 20 meq PO DAILY 04/15/19 Pregabalin [Lyrica -] 75 mg PO TID 04/15/19 Rosuvastatin [Crestor -] 20 mg PO DAILY 04/15/19 Tamsulosin HCl [Flomax -] 0.4 mg PO DAILY 04/15/19 Warfarin Na [Coumadin -] 5 mg PO DAILY@1800 04/15/19 Aspirin [ASA -] 81 mg PO DAILY #30 tab.chew 04/18/19 Furosemide [Lasix -] 80 mg PO BID@0600,1400 #60 tablet 04/18/19 Isosorbide Mononitrate [Imdur -] 30 mg PO DAILY #30 tab.sr.24h 04/18/19 Metoprolol Succinate [Toprol XL -] 25 mg PO BID #60 tab.sr.24h 04/18/19 Rosuvastatin [Crestor -] 20 mg PO HS #30 tablet 04/18/19 hydrALAZINE HCL [Apresoline -] 10 mg PO BID #60 tablet 04/18/19 Lisinopril [Zestril] 2.5 mg PO DAILY 11/09/19 Morphine Sulfate 30 mg PO BID 11/09/19 Oxycodone HCl 20 mg PO Q4H PRN 11/09/19 Pantoprazole Sodium 40 mg PO DAILY 11/09/19 Family Medical History Family History: Unable to Obtain Review of Systems Unable to obtain ROS, reason: altered mental state Physical Examination Vital Signs: Vital Signs Temperature 99.3 F 11/09/19 13:43 Pulse Rate 67 11/09/19 17:30 Respiratory Rate 18 11/09/19 17:30 Blood Pressure 95/52 L 11/09/19 17:30 O2 Sat by Pulse Oximetry (%) 99 11/09/19 17:30 Constitutional: Yes: Moderate Distress, Obese, Other (toxic appearing) Neck: Yes: WNL, Supple, Trachea Midline Cardiovascular: Yes: Regular Rate and Rhythm, S1, S2 Respiratory: Yes: Accessory Muscle Use, Diminished (at bases), Poor Air Entry, SOB, Tachypnea Gastrointestinal: Yes: Normal Bowel Sounds, Soft, Abdomen, Obese, Distention ( slight). No: Tenderness, Tenderness, Epigastrium, Tenderness, Rebound Musculoskeletal: Yes: Back Pain Extremities: Yes: Cool. No: Calf Tenderness, Erythema Edema: Yes Edema: LUE: 1+, RUE: 1+, LLE: 2+, RLE: 2+ Neurological: Yes: Oriented (x3), Confusion (in and out of confusion), Lethargy , Tremors. No: Facial Droop Labs: CBC, BMP 11/09/19 14:00 11/09/19 16:10 Imaging - Results Chest X-ray: Report Reviewed EKG: Report Reviewed, Image Reviewed Problem List - Problems (1) BRANT (acute kidney injury) Code(s): N17.9 - ACUTE KIDNEY FAILURE, UNSPECIFIED (2) Acute on chronic systolic and diastolic heart failure, NYHA class 2 Code(s): I50.43 - ACUTE ON CHRONIC COMBINED SYSTOLIC AND DIASTOLIC HRT FAIL (3) Acute respiratory failure Code(s): J96.00 - ACUTE RESPIRATORY FAILURE, UNSP W HYPOXIA OR HYPERCAPNIA (4) CAD (coronary artery disease) Code(s): I25.10 - ATHSCL HEART DISEASE OF [place] CORONARY ARTERY W/O ANG PCTRS Qualifiers: [place] vs. 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 Diabetes mellitus complication status: with circulatory complication Diabetes mellitus complication detail: with peripheral angiopathy with gangrene Qualified Code(s): E11.52 - Type 2 diabetes mellitus with diabetic peripheral angiopathy with gangrene (9) History of CVA (cerebrovascular accident) Code(s): Z86.73 - PRSNL HX OF TIA (TIA), AND CEREB INFRC W/O RESID DEFICITS (10) History of [place] (myocardial infarction) Code(s): I25.2 - OLD MYOCARDIAL INFARCTION (11) Hyperkalemia Code(s): E87.5 - HYPERKALEMIA (12) Hyperlipidemia Code(s): E78.5 - HYPERLIPIDEMIA, UNSPECIFIED (13) Hypertension Code(s): I10 - ESSENTIAL (PRIMARY) HYPERTENSION Qualifiers: Hypertension type: essential hypertension Qualified Code(s): I10 - Essential (primary) hypertension (14) Uremic encephalopathy Code(s): G93.41 - METABOLIC ENCEPHALOPATHY; N19 - UNSPECIFIED KIDNEY FAILURE Assessment/Plan Assessment: Uremic encephalopathy BRANT Hyperkalemia Metabolic Acidosis Upper GIB Demand ischemia Ischemic CMP COPD on home 02 CAD s/p CABG CKD DM2 CVA CHF Valvular heart disease HTN HLD Plan: Admit to ICU Emergent HD indicated central line placed in ED given calcium gluconate and d50, repeat K still in 7s steinberg, accurate io's/daily weights renal us ordered holding bp meds, hypotensive holding coumadin in light of GIB, was on coumadin last admission 04/17 FOBT sent and pending PPI repeat labs, check cultures elevated trop, demand ischemia in light of acidosis, trend GI/cardio/renal/ICU eval
[2019-11-09 18:29] LABS: EPI CELLS 0.6 /HPF (0-5/HPF); HYALINE CASTS 70 /lpf (0-8); URINE APPEARANCE TURBID; URINE BACTERIA 2.1 /hpf (NEGATIVE); URINE BILIRUBIN NEGATIVE (NEGATIVE); URINE COLOR YELLOW; URINE GLUCOSE (UA) NEGATIVE (NEGATIVE); URINE KETONE TRACE (NEGATIVE); URINE LEUK ESTERASE 2+ (NEGATIVE); URINE NITRITE NEGATIVE (NEGATIVE); URINE PROTEIN 1+ (NEGATIVE); URINE UROBILINOGEN 0.2 mg/dL (0.2-1.0); URINE WBC 100 /hpf (0-5)
--- NOTE | 2019-11-09 18:31 | CONSULT ---
Consult Consult Specialty:: CCM Reason for Consultation:: ARF - History of Present Illness Chief Complaint: altered mentation, poor UOP History of Present Illness: Hx obtained from medical record and 2/2 pt clincal condition. Briefly Mr Scott is a 69 year old male numerous medical problems including but not limited to: chf, valvular heart disease, copd on home oxygen, htn, hld, cad , ckd, dm and cva who presented to the ER complaining of nausea and vomiting ( possibly coffee ground but somewhat unclear), poor PO intake and decreased UOP despite on daily diuretics. Also complained of diarrhea, no melena but "some blood" per report. His is at bedside who was able to assist with history. She denies history of CKD, although it is routinely mentioned stage II in previous chart admissions. Pts primary and a cardiology is [facility]. relates no significant NSAIDs. No new meds. In ED pt afebrile, nontoxic appearing. VS WNL. EKG biPaced. CXR without infiltrate. Intitally straight cathed for urine, did not appear obstructed. Labs notable for pH 7.0, Cr 5, BUN 142, K 7, HCO3 14. CPK 300s, BNP >60K. Was given HyperK coctail. Nephrology consulted, admitted to ICU for emergent dialysis. Renal US and TTE ordered. In ICU pt progressively hypotensive, obtunded as HD being initiated. Bedside echo shows globally hypokinetic LV EF ~25%. Dopamine stared with improvement in BP. Blood cxl drawn and ceftriaxone started for 20 wbc in urine and + LE. No significant sick prodrome and no fever but given pt deterioration low threshold to start abx therapy. 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, Peripheral Neuropathy Cardio/Vascular: Yes: CHF, HTN, Hyperlipdemia, Hyperlipdemia, VT Pulmonary: Yes: COPD, O2 Dependent, Pneumonia, Previously Intubated Gastrointestinal: Yes: Other, GERD, Other Renal/: Yes: Renal Inusuff, Other Infectious Disease: Yes: MRSA Psych: Yes: Addictions Musculoskeletal: Yes: Other, Other Endocrine: Yes: Diabetes Mellitus - Past Surgical History Past Surgical History: Yes: CABG (4v), Permanent Pacemaker, Stent (PCIX5) - Alcohol/Substance Use Hx Alcohol Use: No History of Substance Use: reports: None - Smoking History Smoking history: Former smoker Have you smoked in the past 12 months: No Aproximately how many cigarettes per day: 30 If you are a former smoker, when did you quit?: 3 years - Social History Usual Living Arrangement: With Spouse ADL: Family Assistance History of Recent Travel: No Home Medications - Allergies Allergies/Adverse Reactions: Allergies Allergy/AdvReac Type Severity Reaction Status Date / Time No Known Allergies Allergy Verified 11/09/19 13:10 - Home Medications Home Medications: Ambulatory Orders Ferrous Sulfate [Feosol] 325 mg PO DAILY 04/15/19 Fluticasone Propionate 16 gm NS DAILY 04/15/19 Folic Acid - 1 mg PO DAILY 04/15/19 Insulin (LOG) Aspart [NovoLOG -] 0 units SQ ASDIR 04/15/19 Lansoprazole [Prevacid -] 30 mg PO DAILY 04/15/19 Oxycodone HCl 10 mg PO Q4H 04/15/19 Potassium Chloride [K-Dur -] 20 meq PO DAILY 04/15/19 Pregabalin [Lyrica -] 75 mg PO TID 04/15/19 Rosuvastatin [Crestor -] 20 mg PO DAILY 04/15/19 Tamsulosin HCl [Flomax -] 0.4 mg PO DAILY 04/15/19 Warfarin Na [Coumadin -] 5 mg PO DAILY@1800 04/15/19 Aspirin [ASA -] 81 mg PO DAILY #30 tab.chew 04/18/19 Furosemide [Lasix -] 80 mg PO BID@0600,1400 #60 tablet 04/18/19 Isosorbide Mononitrate [Imdur -] 30 mg PO DAILY #30 tab.sr.24h 04/18/19 Metoprolol Succinate [Toprol XL -] 25 mg PO BID #60 tab.sr.24h 04/18/19 Rosuvastatin [Crestor -] 20 mg PO HS #30 tablet 04/18/19 hydrALAZINE HCL [Apresoline -] 10 mg PO BID #60 tablet 04/18/19 Lisinopril [Zestril] 2.5 mg PO DAILY 11/09/19 Morphine Sulfate 30 mg PO BID 11/09/19 Oxycodone HCl 20 mg PO Q4H PRN 11/09/19 Pantoprazole Sodium 40 mg PO DAILY 11/09/19 Family Medical History Family History: Unable to Obtain (altered mentation) Review of Systems Unable to obtain ROS, reason: unable 2/2 clinical condi Physical Exam Vital Signs: Vital Signs Temperature 99.3 F 11/09/19 13:43 Pulse Rate 67 11/09/19 17:30 Respiratory Rate 18 11/09/19 17:30 Blood Pressure 95/52 L 11/09/19 17:30 O2 Sat by Pulse Oximetry (%) 99 11/09/19 17:30 Constitutional: Yes: Well Nourished, No Distress Eyes: Yes: EOM Intact, PERRL HENT: Yes: Atraumatic, Normocephalic, Other (some petechiae periorbital). No: Rhinnorhea Neck: Yes: Supple, Trachea Midline. No: Lymphadenopathy Cardiovascular: Yes: S1, S2 Respiratory: Yes: CTA Bilaterally Gastrointestinal: Yes: Normal Bowel Sounds, Soft. No: Ascites, Splenomegaly ...Rectal Exam: Yes: WNL Renal/: Yes: Steinberg Present. No: CVA Tenderness - Left, CVA Tenderness - Right Edema: LUE: Trace, RUE: Trace, LLE: 2+, RLE: 2+ Neurological: Yes: Tremors ...Motor Strength: WNL Psychiatric: Yes: Other (confused) Labs: CBC, BMP 11/09/19 14:00 11/09/19 16:10 ABG Results ABG pH 7.10 (7.35-7.45) L* 11/09/19 19:30 ABG pCO2 at Pt Temp 44.7 mmHg (35-45) 11/09/19 19:30 ABG pO2 at Pt Temp 95.7 mmHg (80-100) 11/09/19 19:30 ABG HCO3 13.2 mmol/L (22-27) L 11/09/19 19:30 ABG O2 Sat (Measured) 95.8 % (95-98) 11/09/19 19:30 ABG O2 Content 13.1 % vol 11/09/19 19:30 ABG Base Excess -15.5 meq/l (-2-2) L 11/09/19 19:30 Assessment/Plan Pt seen and examined in ICU A/ 69 yo man with multiple comborbid conditions, CHF, HTN, CAD, dyslipidemia. S/ p CABG, PPM now with Acute renal failure insetting of volume overload and worsening heart failure and possible concomitant urosepsis and possible GIB. 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 Pt has few peticheia about orbits, possibly from vomiting Proph: SCD, protonix Venessa ACNP [id number] 60min CCT spent evaluating patient, formulating plan and dicussing care with pt family and medical team, not including otherwise billed procedures.
[2019-11-09 18:57] LABS: URINE RBC 240.4 /hpf (0-4)
[2019-11-09] MEDS: DOPAMINE 400 MG/D5W - 400,000 MCG/250 ML INFUS.BAG IVPB SCH (19:15)
[2019-11-09] MEDS ORDERED: cefTRIAXone SODIUM 1 GM VIAL ONE (19:26)
[2019-11-09] MEDS ORDERED: DEXTROSE 5%-WATER - 50 ML IVPB ONE (19:26)
[2019-11-09] MEDS: CEFTRIAXONE 1 GM in DEXTROSE 5%-WATER - 50 ML IVPB SCH (19:35)
[2019-11-09 19:54] LABS: ARTERIAL BLD GAS O2 SATURATION 95.8 % (95-98); ARTERIAL BLOOD GAS BASE EXCESS -15.5 meq/l (-2-2); ARTERIAL BLOOD GAS PCO2 44.7 mmHg (35-45); ARTERIAL BLOOD GAS PO2 95.7 mmHg (80-100)
[2019-11-09 20:01] LABS: ALLENS TEST POSITIVE
[2019-11-09] MEDS: MUPIROCIN 2% TOPICAL OINTMENT FOR DECOLONIZATION NS SCH (21:13)
[2019-11-09] MEDS: PANTOPRAZOLE SODIUM 40 MG VIAL IVPUSH SCH (21:13)
[2019-11-09] MEDS: CHLORHEXIDINE GLUCONATE 4% CLEANSER FOR DECOLONIZATION TP SCH (21:15)
[2019-11-09 23:33] LABS: BLOOD UREA NITROGEN 59.5 mg/dL (7-18); CALCIUM 7.9 mg/dL (8.5-10.1); CREATININE 2.7 mg/dL (0.55-1.3); POTASSIUM 3.5 mmol/L (3.5-5.1)
[2019-11-10 06:45] LABS: BLOOD UREA NITROGEN 82.8 mg/dL (7-18); CALCIUM 7.8 mg/dL (8.5-10.1); CREATININE 3.6 mg/dL (0.55-1.3); MAGNESIUM 1.7 mg/dL (1.8-2.4); PHOSPHOROUS 5.4 mg/dL (2.5-4.9); POTASSIUM 4.7 mmol/L (3.5-5.1)
--- NOTE | 2019-11-10 07:46 | PN ---
Progress Note (short form) - Note Progress Note: GI CONSULT DICTATED NPO / IVF'S PPI INFUSION H/H Q12 - HOLD A/C / ANTIPLATELET REGIMEN ONCE OPTIMIZED WILL PLAN FOR DIAGNOSTIC EGD SEE FULL CONSULT DICTATED
[2019-11-10] MEDS ORDERED: cefTRIAXone SODIUM 1 GM VIAL ONE (08:47)
[2019-11-10] MEDS ORDERED: DEXTROSE 5%-WATER - 50 ML IVPB ONE (08:47)
[2019-11-10] MEDS: CEFTRIAXONE 1 GM in DEXTROSE 5%-WATER - 50 ML IVPB SCH (09:00)
[2019-11-10] MEDS: PANTOPRAZOLE SODIUM 40 MG VIAL IVPUSH SCH ×2 (09:00→21:05)
[2019-11-10 09:04] LABS: BASO % 2.2 % (0-2.0); EOS % 0.2 % (0-4.5); HEMATOCRIT 33.3 % (35.4-49); HEMOGLOBIN 10.3 GM/dL (11.7-16.9); LYMPH % 5.2 % (8-40); MCH 28.4 pg (25.7-33.7); MEAN CELL VOLUME 91.5 fl (80-96); MEAN PLT VOLUME 10.5 fl (7.5-11.1); MONO % 8.7 % (3.8-10.2); NEUT % 83.7 % (42.8-82.8); PLATELET COUNT 136 K/MM3 (134-434); RBC 3.64 M/mm3 (4.00-5.60); RDW 17.5 % (11.9-15.9); WHITE BLOOD COUNT 10.4 K/mm3 (4.0-10.0)
--- NOTE | 2019-11-10 11:00 | PN ---
Progress Note (short form) - Note Progress Note: Pulm/CCM Pt seen and examined in the ICU. Episodes of delirium. No c/o chest pain. Troponin elevated i/s/o BRANT. iHD yesterday via Rt Fem vascath. Making urine. Remains on Dopamine 1mcg/Kg/min for inotropy. Current Medications Albumin Human (Albumin Human 25%) 12.5 gm IVPB Q30M [facility] Chlorhexidine Gluconate (Hibiclens For Decolonization -) 1 applic TP HS [facility] Last Admin: 11/09/19 21:15 Dose: 1 applic Sodium Chloride (Normal Saline -) 250 mls @ 3,000 mls/hr IV PRN PRN PRN Reason: Hypotension during Dialysis Stop: 11/10/19 18:00 Dopamine HCl/Dextrose (Dopamine 400 Mg/D5w -) 400,000 mcg in 250 mls @ 18.711 mls/hr IVPB TITR [facility]; Protocol Last Titration: 11/10/19 09:03 Dose: 1 mcg/kg/min, 3.742 mls/hr Ceftriaxone Sodium 1 gm/ (Dextrose) 50 mls @ 200 mls/hr IVPB DAILY [facility]; Protocol Last Admin: 11/10/19 09:00 Dose: 200 mls/hr Mupirocin (Bactroban Ointment (For Decolonization) -) 1 applic NS BID [facility] Stop: 11/14/19 21:59 Last Admin: 11/09/19 21:13 Dose: 1 applic Pantoprazole Sodium (Protonix Iv) 40 mg IVPUSH BID [facility] Last Admin: 11/10/19 09:00 Dose: 40 mg Vital Signs Period Temp Pulse Resp BP Sys/Chandra Pulse Ox Last 24 Hr 98.1 F-100 F 62-101 11-26 75-165/40-90 96-99 Intake & Output 11/07/19 11/08/19 11/09/19 11/10/19 23:59 23:59 23:59 23:59 Intake Total 625 150 Output Total 2750 400 Balance -2125 -250 Weight 83.915 kg 84.323 kg EXAM Gen: Elderly man in bed in NAD Neuro: A+O x2, affect slightly off, following commands HEENT: PERRL, dryMM Lungs: CTA ABD: Soft, ND, NT EXT: Toes cool, trace edema Assessment/Plan A/ 69 yo man with multiple comborbid conditions, CHF, HTN, CAD, dyslipidemia. S/ p CABG, PPM now with Acute renal failure insetting of volume overload and worsening heart failure and possible concomitant urosepsis and possible GIB. P/ ARF: unclear etiology, likely poor forward flow/overload -nephrology following, appreciate recs -HD as per renal -Strict I+Os -renal US, lytes -steinberg, monitor UOP -avoid nephrotoxins -Renal dose meds Shock: -mixed, primary acidosis, CHF -inotrope with dopa for now -TTE ordered -Trend trop -Trend lactate UTI -Cont ceftriaxone -f/u cxl AMS: uremia, hypotension, toxic metabolic encephalopathy -closely follow mental status -CT head if not improving post HD Possible GIB, hx of GIB while on anti-coagulation, question petechia -Trend hgb -protonix bid for now -pt sunni has some plt dysfunction from uremia, also on ASA at home per . Pt has few petechea about orbits, possibly from vomiting Proph: SCD, protonix Mariel Carranza,ACNP
--- NOTE | 2019-11-10 12:38 | CON.CARD ---
Cardiology Consult (text) - Consultation Consultation Note: Chief Complaint: History of Present Illness: 69M h/o dm, ckd (1.5-2), CVA 10/2014, CAD s/p STEMI and multiple pci's, s/p CABG 02/2019, s/p PPM, ischemic CM with systolic chf, COPD, extensive smoking history (quit 12/2016) here with alt mental status, nausea, vomiting, diarrhea. Sees me for cardio, history of poor follow up, has also been followed at [facility]. Had been on warfarin prior for history of afib, which was stopped due to GI bleed prior. Unable to obtain history from pt due to altered mental status, obtained through chart. Here with possible coffee ground emesis, guaiac + stool , diarrhea, vomiting, poor PO intake and latered mental status. Noted to have BRANT, hyperkalemia here, catheter placed and pt admitted to ICU for urgent HD. Was also started on dopamine for hypotension, worse with HD. Started on abx for UTI. Currently complaining of back pain, not answering questions appropriately. 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 No: AFIB Pulmonary: Yes: COPD Gastrointestinal: Yes: Other (Colitis) Renal/: Yes: Renal Inusuff, Other (hyperkalemia) Psych: Yes: Addictions Musculoskeletal: Yes: Other (Lumbar radiculopathy) Endocrine: Yes: Diabetes Mellitus - Past Surgical History Past Surgical History: Yes: Stent, CABG, PPM - Alcohol/Substance Use Hx Alcohol Use: No History of Substance Use: reports: None - Smoking History Smoking history: ex tob - Social History Usual Living Arrangement: With Spouse ADL: Independent History of Recent Travel: No Home Medications - Allergies Allergies/Adverse Reactions: Allergies Allergy/AdvReac Type Severity Reaction Status Date / Time No Known Allergies Allergy Verified 11/09/19 13:10 Ambulatory Orders Ferrous Sulfate [Feosol] 325 mg PO DAILY 04/15/19 Fluticasone Propionate 16 gm NS DAILY 04/15/19 Folic Acid - 1 mg PO DAILY 04/15/19 Insulin (LOG) Aspart [NovoLOG -] 0 units SQ ASDIR 04/15/19 Lansoprazole [Prevacid -] 30 mg PO DAILY 04/15/19 Oxycodone HCl 10 mg PO Q4H 04/15/19 Potassium Chloride [K-Dur -] 20 meq PO DAILY 04/15/19 Pregabalin [Lyrica -] 75 mg PO TID 04/15/19 Rosuvastatin [Crestor -] 20 mg PO DAILY 04/15/19 Tamsulosin HCl [Flomax -] 0.4 mg PO DAILY 04/15/19 Warfarin Na [Coumadin -] 5 mg PO DAILY@1800 04/15/19 Aspirin [ASA -] 81 mg PO DAILY #30 tab.chew 04/18/19 Furosemide [Lasix -] 80 mg PO BID@0600,1400 #60 tablet 04/18/19 Isosorbide Mononitrate [Imdur -] 30 mg PO DAILY #30 tab.sr.24h 04/18/19 Metoprolol Succinate [Toprol XL -] 25 mg PO BID #60 tab.sr.24h 04/18/19 Rosuvastatin [Crestor -] 20 mg PO HS #30 tablet 04/18/19 hydrALAZINE HCL [Apresoline -] 10 mg PO BID #60 tablet 04/18/19 Lisinopril [Zestril] 2.5 mg PO DAILY 11/09/19 Morphine Sulfate 30 mg PO BID 11/09/19 Oxycodone HCl 20 mg PO Q4H PRN 11/09/19 Pantoprazole Sodium 40 mg PO DAILY 11/09/19 Family Disease History - Family Disease History Family Disease History: Diabetes: Grandparent, Sister (COPD), CA: Father, Respiratory: Sister, Other: Mother (CVA) Review of Systems - Review of Systems per hpi; no nvd, salas, vision changes, gib, hematuria, dysuria, muscle pain Physical Exam Vital Signs: Vital Signs Period Temp Pulse Resp BP Sys/Chandra Pulse Ox Last 24 Hr 98.1 F-100 F 62-101 11-26 75-165/40-90 96-99 nad no jvd rrr s1s2 no mrg ctab aaox3 no le e/c/c abd nt nd pos bs no jaundice diaphoresis pos dp pt no carotid bruits ext wwp, no edema Laboratory Last Values WBC 10.4 K/mm3 (4.0-10.0) H 11/10/19 05:45 RBC 3.64 M/mm3 (4.00-5.60) L 11/10/19 05:45 Hgb 10.3 GM/dL (11.7-16.9) L 11/10/19 05:45 Hct 33.3 % (35.4-49) L 11/10/19 05:45 MCV 91.5 fl (80-96) 11/10/19 05:45 MCH 28.4 pg (25.7-33.7) 11/10/19 05:45 MCHC 31.0 g/dl (32.0-35.9) L 11/10/19 05:45 RDW 17.5 % (11.9-15.9) H 11/10/19 05:45 Plt Count 136 K/MM3 (134-434) D 11/10/19 05:45 MPV 10.5 fl (7.5-11.1) 11/10/19 05:45 Absolute Neuts (auto) 8.7 K/mm3 (1.5-8.0) H 11/10/19 05:45 Total Counted 100 11/09/19 14:00 Neutrophils % 83.7 % (42.8-82.8) H 11/10/19 05:45 Neutrophils % (Manual) 91.0 % (42.8-82.8) H 11/09/19 14:00 Band Neutrophils % 4.0 % 11/09/19 14:00 Lymphocytes % 5.2 % (8-40) L D 11/10/19 05:45 Lymphocytes % (Manual) 3.0 % (8-40) L D 11/09/19 14:00 Monocytes % 8.7 % (3.8-10.2) D 11/10/19 05:45 Monocytes % (Manual) 2 % (3.8-10.2) L 11/09/19 14:00 Eosinophils % 0.2 % (0-4.5) D 11/10/19 05:45 Basophils % 2.2 % (0-2.0) H 11/10/19 05:45 Nucleated RBC % 0 % (0-0) 11/10/19 05:45 Hypochromia 1+ 11/09/19 14:00 Platelet Estimate Adequate 11/09/19 14:00 Platelet Comment No clumping noted 11/09/19 14:00 Polychromasia 1+ 11/09/19 14:00 PT with INR 12.10 SEC (9.7-13.0) 11/09/19 14:00 INR 1.03 (0.83-1.09) 11/09/19 14:00 PTT (Actin FS) 32.7 SECONDS (25.2-36.5) 11/09/19 14:00 Anticoagulation Therapy No Result Required. 11/09/19 19:30 Puncture Site Right brachial 11/09/19 19:30 ABG pH 7.10 (7.35-7.45) L* 11/09/19 19:30 ABG pCO2 at Pt Temp 44.7 mmHg (35-45) 11/09/19 19:30 ABG pO2 at Pt Temp 95.7 mmHg (80-100) 11/09/19 19:30 ABG HCO3 13.2 mmol/L (22-27) L 11/09/19 19:30 ABG O2 Sat (Measured) 95.8 % (95-98) 11/09/19 19:30 ABG O2 Content 13.1 % vol 11/09/19 19:30 ABG Base Excess -15.5 meq/l (-2-2) L 11/09/19 19:30 Alfredo Test Positive 11/09/19 19:30 VBG pH 7.01 (7.31-7.41) L* 11/09/19 14:00 POC VBG pCO2 52.0 mmHg (38-52) 11/09/19 14:00 POC VBG pO2 < 49 mmHg (28-48) H 11/09/19 14:00 VBG HCO3 12.6 mmol/L (23-29) L 11/09/19 14:00 VBG O2 Sat (Radha) 48.2 % (70-80) L 11/09/19 14:00 VBG Base Excess -18.2 meq/l (-2-2) L 11/09/19 14:00 O2 Delivery Device N/c 11/09/19 19:30 Oxygen Flow Rate 3l 11/09/19 19:30 Vent Mode No Result Required. 11/09/19 19:30 Vent Rate No Result Required. 11/09/19 19:30 Mechanical Rate No Result Required. 11/09/19 19:30 Pressure Support Vent No Result Required. 11/09/19 19:30 Sodium 139 mmol/L (136-145) 11/10/19 05:45 Potassium 4.7 mmol/L (3.5-5.1) 11/10/19 05:45 Chloride 107 mmol/L (98-107) 11/10/19 05:45 Carbon Dioxide 21 mmol/L (21-32) 11/10/19 05:45 Anion Gap 11 MMOL/L (8-16) 11/10/19 05:45 BUN 82.8 mg/dL (7-18) H 11/10/19 05:45 Creatinine 3.6 mg/dL (0.55-1.3) H 11/10/19 05:45 Est GFR (CKD-EPI)AfAm 18.57 11/10/19 05:45 Est GFR (CKD-EPI)NonAf 16.02 11/10/19 05:45 Random Glucose 90 mg/dL (74-106) 11/10/19 05:45 Lactic Acid 1.6 mmol/L (0.4-2.0) 11/09/19 14:00 Calcium 7.8 mg/dL (8.5-10.1) L 11/10/19 05:45 Phosphorus 5.4 mg/dL (2.5-4.9) H 11/10/19 05:45 Magnesium 1.7 mg/dL (1.8-2.4) L 11/10/19 05:45 Total Bilirubin 0.3 mg/dL (0.2-1) 11/09/19 14:00 AST 52 U/L (15-37) H 11/09/19 14:00 ALT 35 U/L (13-61) 11/09/19 14:00 Alkaline Phosphatase 126 U/L (45-117) H 11/09/19 14:00 Creatine Kinase 398 U/L (26-308) H 11/09/19 22:45 Creatine Kinase Index 3.7 % (0.0-5.0) 11/09/19 22:45 CK-MB (CK-2) 15.0 ng/mL (0.5-3.6) H 11/09/19 22:45 Troponin I 3.74 ng/ml (0.00-0.05) H* 11/10/19 05:45 B-Natriuretic Peptide > 31654.0 pg/ml (5-125) H 11/09/19 14:00 Total Protein 7.3 g/dl (6.4-8.2) 11/09/19 14:00 Albumin 3.8 g/dl (3.4-5.0) 11/09/19 14:00 Lipase 216 U/L (73-393) 11/09/19 14:00 Urine Color Yellow 11/09/19 16:08 Urine Appearance Turbid 11/09/19 16:08 Urine pH 5.0 (5.0-8.0) 11/09/19 16:08 Ur Specific [place] 1.023 (1.010-1.035) 11/09/19 16:08 Urine Protein 1+ (NEGATIVE) H 11/09/19 16:08 Urine Glucose (UA) Negative (NEGATIVE) 11/09/19 16:08 Urine Ketones Trace (NEGATIVE) H 11/09/19 16:08 Urine Blood 3+ (NEGATIVE) H 11/09/19 16:08 Urine Nitrite Negative (NEGATIVE) 11/09/19 16:08 Urine Bilirubin Negative (NEGATIVE) 11/09/19 16:08 Urine Urobilinogen 0.2 mg/dL (0.2-1.0) 11/09/19 16:08 Ur Leukocyte Esterase 2+ (NEGATIVE) H 11/09/19 16:08 Urine WBC (Auto) 100 /hpf (0-5) 11/09/19 16:08 Urine RBC (Auto) 240.4 /hpf (0-4) 11/09/19 16:08 Urine Casts (Auto) 70 /lpf (0-8) 11/09/19 16:08 U Pathogenic Cast Auto /lpf (NEGATIVE) 11/09/19 16:08 U Epithel Cells (Auto) 0.6 /HPF (0-5/HPF) 11/09/19 16:08 Urine Bacteria (Auto) 2.1 /hpf (NEGATIVE) 11/09/19 16:08 Ur Random Sodium 16 MMOL/L (40-220) L 11/09/19 16:08 Ur Random Potassium 30.0 MMOL/L (25-125) 11/09/19 16:08 Ur Random Chloride 95 MMOL/L (110-250) L 11/09/19 16:08 Stool Occult Blood Positive (NEGATIVE) 11/09/19 13:50 Blood Type AB POSITIVE 11/09/19 16:22 Antibody Screen Negative 11/09/19 16:22 ecg: a sense, V paced, PVC LHC 05/15: 70-80% mRCA (ISR), 70-80% RPDA (ISR); 70-80% mLAD; 80-90% pLCX (small vessel); 90-95% OM2 (large vessel); 80-90% prox Ramus (large vessel) ...nonobstructive dz of note sbizlpir21-79% ostial RCA, 50-60% eccentric lesion OM1 (large vessel); EDP 30-->25 post-nitro EF 38% (diffuse WMAs) Syntax score 20 Echo 10/29/18: mod LVE, mild global LV hypo (45-50%). RV tds. mild TR. no vegetations noted Echo 05/15: mod to sev decr LVEF; severe hypokinesis of all lindsey except basal segments. nl RV. mild MR/TR. no peric eff. Echo 01/2017: mild global HK, lvef 45-50, nl rv, nl rvsp, mild lae, mild tr CXR: congestive changes, improved compared to prior a/p: 69M h/o dm, ckd (1.5-2), CVA 10/2014, CAD s/p STEMI and multiple pci's, s/p CABG 02/2019, s/p PPM, ischemic CM with systolic chf, COPD, extensive smoking history (quit 12/2016) here with nausea, vomiting, BRANT, hyperkalemia, elevated troponin, GI bleed elevated troponin - rising in setting of underlying sepsis, UTI, GI bleed, BRANT requiring urgent HD - history of CAD s/p CABG 02/2019 - demand ischemia vs type I NSTEMI - aspirin, heparin held given possible GI bleed - coffee ground emesis, guaiac + stool, history of GI bleed for which warfarin was stopped in the past - GI consult is pending - echo pending - trend trop to peak hypotension, sepsis - likely mixed - ?cardiogenic, possible urosepsis - BP stable on pressors, maintain MAP >60 - echo ordered CAD: -2004 s/p PCI (LIBBY) to 100% occl RPDA ([facility]) with patent prior RCA stents at that time, EF 50% then; -2012 s/p anterior STEMI 2011 with [facility] LIBBY x 2 to mid LAD then ([facility]); residual 80% prox D1 (large vessel), 95% mD1; 70%mRCA (pre and post prior stents), 70% dCFX; (also 40% RPDA; 60% pCFX; 40% mCFX;) EF then 37% with AK of apex/AL lindsey and AK of IW; -2016 s/p NSTEMI in setting of sepsis/PNA-->[facility] with 70-80% mRCA (ISR), 70-80% RPDA (ISR); 70-80% mLAD; 80-90% pLCX (small vessel); 90-95% OM2 (large vessel); 80-90% prox Ramus (large vessel), 30-50% ostial RCA, 50-60% eccentric lesion OM1 (large vessel); - NSTEMI 02/2019, now s/p CABG at [facility] - holding aspirin, heparin gtt as above -cont statin -holding home BB, imdur in setting of hypotension BRANT, hyperkalemia - urgent HD in setting of hyperkalemia, manage per renal UTI - manage per primary alt mental status, toxic metabolic encephalopathy - likely 2/2 uremia, UTI - improving GI bleed - GI consulted - holding aspirin, AC chronic syst CHF, ischemic cardiomyopathy - holding home lasix, metoprolol for hypotension requiring pressors - warm well perfused, appears euvolemic after HD - echo pending - monitor daily weight, lytes, Cr HTN: - holding home meds for hypotension Atrial fibrillation - warfarin had reportedly been held as outpatient for GI bleed - hold AC pending GI workup, metoprolol held for low BPs s/p PPM, hx mobitz I 2nd degree AVB - stable function on EKG, tele - outpatient follow up HLD - cont statin h/o CVA: -dx'd lacunar infarct 02/10 clinically then (slurred speech) -? acute CVA/TIA 11/13 - holding warfarin, aspirin as above
[2019-11-10] MEDS: ACETAMINOPHEN 1000 MG/100 ML VIAL (NON FORMULARY) IVPB PRN ×2 (13:17→21:14)
--- NOTE | 2019-11-10 16:28 | PN ---
Progress Note, Physician History of Present Illness: Pt seen and examined at bedside. He is more awake and alert today. He feels that his breathing is improved. - Current Medication List Current Medications: Active Medications Acetaminophen (Ofirmev Injection -) 1,000 mg IVPB Q6H PRN PRN Reason: MILD PAIN Last Admin: 11/10/19 13:17 Dose: 1,000 mg Albumin Human (Albumin Human 25%) 12.5 gm IVPB Q30M [facility] Chlorhexidine Gluconate (Hibiclens For Decolonization -) 1 applic TP HS [facility] Last Admin: 11/09/19 21:15 Dose: 1 applic Sodium Chloride (Normal Saline -) 250 mls @ 3,000 mls/hr IV PRN PRN PRN Reason: Hypotension during Dialysis Stop: 11/10/19 18:00 Dopamine HCl/Dextrose (Dopamine 400 Mg/D5w -) 400,000 mcg in 250 mls @ 18.711 mls/hr IVPB TITR [facility]; Protocol Last Titration: 11/10/19 13:05 Dose: 0 mcg/kg/min, 0 mls/hr Ceftriaxone Sodium 1 gm/ (Dextrose) 50 mls @ 200 mls/hr IVPB DAILY [facility]; Protocol Last Admin: 11/10/19 09:00 Dose: 200 mls/hr Mupirocin (Bactroban Ointment (For Decolonization) -) 1 applic NS BID [facility] Stop: 11/14/19 21:59 Last Admin: 11/09/19 21:13 Dose: 1 applic Pantoprazole Sodium (Protonix Iv) 40 mg IVPUSH BID [facility] Last Admin: 11/10/19 09:00 Dose: 40 mg - Objective Vital Signs: Vital Signs Temperature 99.8 F H 11/10/19 14:00 Pulse Rate 74 11/10/19 14:00 Respiratory Rate 18 11/10/19 14:00 Blood Pressure 103/56 L 11/10/19 14:00 O2 Sat by Pulse Oximetry (%) 97 11/09/19 19:00 Constitutional: Yes: Calm Eyes: Yes: Conjunctiva Clear HENT: Yes: Atraumatic Cardiovascular: Yes: S1, S2 Respiratory: Yes: On Nasal O2, Rhonchi Gastrointestinal: Yes: Soft Genitourinary: Yes: Dupree Present Edema: Yes Edema: LLE: 2+, RLE: 2+ Neurological: Yes: Oriented Labs: CBC, BMP 11/10/19 05:45 11/10/19 05:45 INR, PTT INR 1.03 (0.83-1.09) 11/09/19 14:00 Problem List - Problems (1) BRANT (acute kidney injury) Code(s): N17.9 - ACUTE KIDNEY FAILURE, UNSPECIFIED (2) Abnormal chest x-ray Code(s): R93.8 - ABNORMAL FINDINGS ON [facility] [place] * DO NOT USE * Assessment/Plan Current Medications Generic Name Dose Route Start Last Admin Trade Name Freq PRN Reason Stop Dose Admin Acetaminophen 1,000 mg 11/10/19 13:08 11/10/19 13:17 Ofirmev Injection - IVPB 1,000 mg Q6H PRN Administration MILD PAIN Albumin Human 12.5 gm 11/09/19 18:00 Albumin Human 25% IVPB Q30M [facility] Chlorhexidine Gluconate 1 applic 11/09/19 22:00 11/09/19 21:15 Hibiclens For Decolonization - TP 1 applic HS [facility] Administration Sodium Chloride 250 mls @ 3,000 mls/hr 11/09/19 18:00 Normal Saline - IV 11/10/19 18:00 PRN PRN Hypotension during Dialysis Dopamine HCl/Dextrose 400,000 mcg in 250 mls @ 18.711 mls/hr 11/09/19 19:15 11/10/19 13:05 Dopamine 400 Mg/D5w - IVPB 0 mcg/kg/min TITR [facility] 0 mls/hr Titration Protocol 5 MCG/KG/MIN Ceftriaxone Sodium 1 gm/ 50 mls @ 200 mls/hr 11/09/19 19:15 11/10/19 09:00 Dextrose IVPB 200 mls/hr DAILY [facility] Administration Protocol Mupirocin 1 applic 11/09/19 22:00 11/09/19 21:13 Bactroban Ointment (For Decolonization) - NS 11/14/19 21:59 1 applic BID [facility] Administration Pantoprazole Sodium 40 mg 11/09/19 22:00 11/10/19 09:00 Protonix Iv IVPUSH 40 mg BID [facility] Administration Impression 1. BRANT 2. hyperkalemia 3. metaboli acidosis 4. chf 5. uremia 6. fluid overload 7. chf 8. copd 9. cva Plan - pt tolerated HD last night - will give a dose of lasix - monitor urine output - will evaluate for HD again tomorrow - reviewed renal ultrasound - am cxr
[2019-11-10] MEDS ORDERED: FUROSEMIDE 40 MG/4 ML INJECTABLE VIAL IVPUSH ONE (16:45)
[2019-11-10] MEDS: oxyCODONE HCL 5 MG TABLET PO PRN (16:50)
[2019-11-10] MEDS: MUPIROCIN 2% TOPICAL OINTMENT FOR DECOLONIZATION NS SCH ×2 (17:14→21:06)
--- NOTE | 2019-11-10 17:51 | PN ---
Progress Note, Physician Chief Complaint: ams History of Present Illness: seen and examined at bedside, tolerated HD last night. Feeling better. at bedside, all questions answered. - Current Medication List Current Medications: Active Medications Acetaminophen (Ofirmev Injection -) 1,000 mg IVPB Q6H PRN PRN Reason: MILD PAIN Last Admin: 11/10/19 13:17 Dose: 1,000 mg Albumin Human (Albumin Human 25%) 12.5 gm IVPB Q30M [facility] Chlorhexidine Gluconate (Hibiclens For Decolonization -) 1 applic TP HS [facility] Last Admin: 11/09/19 21:15 Dose: 1 applic Sodium Chloride (Normal Saline -) 250 mls @ 3,000 mls/hr IV PRN PRN PRN Reason: Hypotension during Dialysis Stop: 11/10/19 18:00 Dopamine HCl/Dextrose (Dopamine 400 Mg/D5w -) 400,000 mcg in 250 mls @ 18.711 mls/hr IVPB TITR [facility]; Protocol Last Titration: 11/10/19 13:05 Dose: 0 mcg/kg/min, 0 mls/hr Ceftriaxone Sodium 1 gm/ (Dextrose) 50 mls @ 200 mls/hr IVPB DAILY [facility]; Protocol Last Admin: 11/10/19 09:00 Dose: 200 mls/hr Mupirocin (Bactroban Ointment (For Decolonization) -) 1 applic NS BID [facility] Stop: 11/14/19 21:59 Last Admin: 11/10/19 17:14 Dose: 1 applic Oxycodone HCl (Roxicodone -) 5 mg PO Q4H PRN PRN Reason: PAIN LEVEL 1-5 Last Admin: 11/10/19 16:50 Dose: 5 mg Pantoprazole Sodium (Protonix Iv) 40 mg IVPUSH BID [facility] Last Admin: 11/10/19 09:00 Dose: 40 mg - Objective Vital Signs: Vital Signs Temperature 100 F H 11/10/19 16:00 Pulse Rate 72 11/10/19 16:00 Respiratory Rate 18 11/10/19 16:00 Blood Pressure 106/53 L 11/10/19 16:00 O2 Sat by Pulse Oximetry (%) 97 11/09/19 19:00 Constitutional: Yes: Well Nourished, No Distress, Calm Cardiovascular: Yes: WNL, Regular Rate and Rhythm Respiratory: Yes: WNL, Regular, CTA Bilaterally Gastrointestinal: Yes: WNL, Normal Bowel Sounds, Soft, Abdomen, Obese Musculoskeletal: Yes: WNL Extremities: Yes: WNL Edema: Yes Edema: LLE: Trace, RLE: Trace Neurological: Yes: WNL, Alert, Oriented, Confusion Labs: CBC, BMP 11/10/19 05:45 11/10/19 05:45 INR, PTT INR 1.03 (0.83-1.09) 11/09/19 14:00 Problem List - Problems (1) BRANT (acute kidney injury) Code(s): N17.9 - ACUTE KIDNEY FAILURE, UNSPECIFIED (2) Acute on chronic systolic and diastolic heart failure, NYHA class 2 Code(s): I50.43 - ACUTE ON CHRONIC COMBINED SYSTOLIC AND DIASTOLIC HRT FAIL (3) Acute respiratory failure Code(s): J96.00 - ACUTE RESPIRATORY FAILURE, UNSP W HYPOXIA OR HYPERCAPNIA (4) CAD (coronary artery disease) Code(s): I25.10 - ATHSCL HEART DISEASE OF [place] CORONARY ARTERY W/O ANG PCTRS Qualifiers: [place] vs. transplanted heart: [place] heart Associated angina: without angina (5) CKD (chronic kidney disease) Code(s): N18.9 - CHRONIC KIDNEY DISEASE, UNSPECIFIED Qualifiers: Chronic kidney disease stage: stage 2 (mild) Qualified Code(s): N18.2 - Chronic kidney disease, stage 2 (mild) (6) COPD (chronic obstructive pulmonary disease) Code(s): J44.9 - CHRONIC OBSTRUCTIVE PULMONARY DISEASE, UNSPECIFIED (7) Cardiomyopathy Code(s): I42.9 - CARDIOMYOPATHY, UNSPECIFIED (8) Diabetes mellitus Code(s): E11.9 - TYPE 2 DIABETES MELLITUS WITHOUT COMPLICATIONS Qualifiers: Diabetes mellitus type: type 2 Diabetes mellitus fdc insulin use: with fdc use Diabetes mellitus complication status: with circulatory complication Diabetes mellitus complication detail: with peripheral angiopathy with gangrene Qualified Code(s): E11.52 - Type 2 diabetes mellitus with diabetic peripheral angiopathy with gangrene (9) History of CVA (cerebrovascular accident) Code(s): Z86.73 - PRSNL HX OF TIA (TIA), AND CEREB INFRC W/O RESID DEFICITS (10) History of GA (myocardial infarction) Code(s): I25.2 - OLD MYOCARDIAL INFARCTION (11) Hyperkalemia Code(s): E87.5 - HYPERKALEMIA (12) Hyperlipidemia Code(s): E78.5 - HYPERLIPIDEMIA, UNSPECIFIED (13) Hypertension Code(s): I10 - ESSENTIAL (PRIMARY) HYPERTENSION Qualifiers: Hypertension type: essential hypertension Qualified Code(s): I10 - Essential (primary) hypertension (14) Uremic encephalopathy Code(s): G93.41 - METABOLIC ENCEPHALOPATHY; N19 - UNSPECIFIED KIDNEY FAILURE Assessment/Plan Assessment: Uremic encephalopathy BRANT Hyperkalemia Metabolic Acidosis Upper GIB Demand ischemia Ischemic CMP COPD on home 02 CAD s/p CABG CKD DM2 CVA CHF Valvular heart disease sp PPM HTN HLD Plan: Tolerated HD mental status improved kidney function improved, hyperkalemia resolved started on lasix today trop elevated likely demand ischemia due to acute illness/acidosis, check another set 2decho pending cw steinberg, accurate io's/daily weights renal us unremarkable holding bp meds, hypotensive, now on dopamine holding coumadin in light of GIB, has been off for 3 weeks FOBT positive PPI IV rocephin for uti, fu culture endoscopy once stabilized follow up cultures GI/cardio/renal/ICU eval OF NOTE, SPOKE WITH WHO INFORMED ME THAT PATIENT HAD RECENT CABG AT [facility] 07/18, WENT TO REHAB AND THEN BACK TO HOSPITAL FOR UGIB, ENDOSCOPY WAS PERFORMED 07/18 AND WAS FOUND TO HAVE PEPTIC ULCER DISEASE. EVENTUALLY WAS PUT BACK ON COUMADIN, BUT TAKEN OFF 3 WEEKS AGO FOR RECURRENT BLEEDING. SHE ALSO NOTES HE HAS HAD SIMILAR EPISODES OF VOLUME OVERLOAD AND KIDNEY FAILURE REQUIRING DIALYSIS IN THE PAST
[2019-11-10] MEDS: DOPAMINE 400 MG/D5W - 400,000 MCG/250 ML INFUS.BAG IVPB SCH (19:51)
--- NOTE | 2019-11-10 19:52 | CONS ---
DATE OF CONSULTATION: DATE OF DICTATION: 11/10/2019 The patient is a 69-year-old man, multiple co-morbidities, including COPD, on home oxygen, CAD, bypass surgery, CKD, diabetes, CVA, who presented to the hospital with complaints of nausea and vomiting for approximately 3 to 4 days. He has been a very poor historian. There is record of him having dark stools for about a month, and also with worsening shortness of breath on exertion. He does not give any further history regarding last colonoscopy or endoscopy. He states that he may have had a colonoscopy a couple of years ago in [place], however, does not recall the results, does not recall the doctor's name either. He denies any abdominal pain, nausea at this time, or hematochezia or syncope. Past medical and surgical history: As listed in the HPI, with the addition of a pacemaker and stents placed. ALLERGIES: No known drug allergies. SOCIAL HISTORY: He does not drink, smoke, or use drugs. He is a former smoker, quit approximately 3 to 5 years ago. FAMILY HISTORY: Unable to obtain. Home medications include iron, fluticasone, folic acid, insulin, Prevacid, oxycodone, K-Dur, Lyrica, Crestor, Flomax, Coumadin, aspirin, Toprol, hydralazine, Zestril, and pantoprazole. REVIEW OF SYSTEMS: Limited secondary to his mental status. PHYSICAL EXAMINATION: Vital Signs: Temperature 99, T-max earlier was 100. Pulse 74. Blood pressure 103/56. Respiratory rate 12. General: No acute distress. HEENT: Anicteric sclerae. Cardiovascular: S1, S2, regular rate and rhythm. Lungs: Bilaterally clear to auscultation. Abdomen: Soft, nontender. Extremities: Without edema. LABORATORY DATA: White blood cell count 10.4, on admission it was 11, hemoglobin 10, hematocrit 33, MCV 91, platelet count 136. INR 1. His pH on ABG was 7.1 on admission. In addition, he had electrolyte abnormalities including a potassium of 7.8, BUN of 140, and a creatinine of 5.6. Also, his troponins are positive, peaking today at 3.74. Sodium 139, and potassium 4.7 after hemodialysis, which was done last night. Urine: 1+ protein, 3+ blood, 2+ leukocyte esterase. Stool for occult blood was positive. Hepatitis antigens are all pending. Cultures are also pending. He had a chest x-ray, which revealed congestive changes. IMPRESSION: Acute kidney injury, requiring urgent hemodialysis; anemia; melena; GI bleed in the setting of antiplatelet regimen. Apparently he has had a history of GI bleed, for which his warfarin was stopped in the past. RECOMMENDATION: Hold antiplatelet regimen, monitor hemoglobin and hematocrit q.12, PPI infusion. There is no sign of an overt GI bleed at this time. He is hemodynamically stable. He should be optimized from a cardiac perspective, cardiology consultation should be obtained as well as further correction of his uremia. This patient will be followed closely by the GI service. He will need a diagnostic upper endoscopy once the acute process has been resolved. Will follow. DO FRANCISCO JAVIER MERAZ/[id number]
[2019-11-10] MEDS: CHLORHEXIDINE GLUCONATE 4% CLEANSER FOR DECOLONIZATION TP SCH (21:06)
[2019-11-11] MEDS: oxyCODONE HCL 5 MG TABLET PO PRN ×3 (05:48→19:26)
[2019-11-11 06:24] LABS: HEMOGLOBIN 9.5 GM/dL (11.7-16.9); MCH 29.1 pg (25.7-33.7); MCHC 32.7 g/dl (32.0-35.9); MEAN CELL VOLUME 88.8 fl (80-96); MEAN PLT VOLUME 9.4 fl (7.5-11.1); PLATELET COUNT 146 K/MM3 (134-434); RBC 3.27 M/mm3 (4.00-5.60); RDW 17.5 % (11.9-15.9); WHITE BLOOD COUNT 8.5 K/mm3 (4.0-10.0)
[2019-11-11 06:50] LABS: ALBUMIN 3.1 g/dl (3.4-5.0); BILIRUBIN,TOTAL 0.4 mg/dL (0.2-1); BLOOD UREA NITROGEN 94.5 mg/dL (7-18); CALCIUM 7.5 mg/dL (8.5-10.1); CREATININE 3.3 mg/dL (0.55-1.3); MAGNESIUM 1.5 mg/dL (1.8-2.4); PHOSPHOROUS 5.1 mg/dL (2.5-4.9); POTASSIUM 4.4 mmol/L (3.5-5.1); TOT PROT 5.9 g/dl (6.4-8.2)
--- NOTE | 2019-11-11 07:48 | PN ---
Progress Note, Physician History of Present Illness: Seen and examined at bedside, states that his right arm began to feel extremely heavy like "there is a ton of bricks on it" last night. Has full range of motion , but complains of weakness when lifting arm above his head. Has no other complaints. Continues to sat 93% on 5L NC. - Current Medication List Current Medications: Active Medications Acetaminophen (Ofirmev Injection -) 1,000 mg IVPB Q6H PRN PRN Reason: MILD PAIN Last Admin: 11/10/19 21:14 Dose: 1,000 mg Albumin Human (Albumin Human 25%) 12.5 gm IVPB Q30M [facility] Chlorhexidine Gluconate (Hibiclens For Decolonization -) 1 applic TP HS [facility] Last Admin: 11/10/19 21:06 Dose: 1 applic Sodium Chloride (Normal Saline -) 250 mls @ 3,000 mls/hr IV PRN PRN PRN Reason: Hypotension during Dialysis Stop: 11/10/19 18:00 Dopamine HCl/Dextrose (Dopamine 400 Mg/D5w -) 400,000 mcg in 250 mls @ 18.711 mls/hr IVPB TITR [facility]; Protocol Last Admin: 11/10/19 19:51 Dose: Not Given Ceftriaxone Sodium 1 gm/ (Dextrose) 50 mls @ 200 mls/hr IVPB DAILY [facility]; Protocol Last Admin: 11/10/19 09:00 Dose: 200 mls/hr Mupirocin (Bactroban Ointment (For Decolonization) -) 1 applic NS BID [facility] Stop: 11/14/19 21:59 Last Admin: 11/10/19 21:06 Dose: 1 applic Oxycodone HCl (Roxicodone -) 5 mg PO Q4H PRN PRN Reason: PAIN LEVEL 1-5 Last Admin: 11/11/19 05:48 Dose: 5 mg Pantoprazole Sodium (Protonix Iv) 40 mg IVPUSH BID [facility] Last Admin: 11/10/19 21:05 Dose: 40 mg - Objective Vital Signs: Vital Signs Temperature 98.2 F 11/11/19 06:00 Pulse Rate 63 11/11/19 06:00 Respiratory Rate 13 11/11/19 06:00 Blood Pressure 145/57 L 11/11/19 06:00 O2 Sat by Pulse Oximetry (%) 97 11/09/19 19:00 Constitutional: Yes: Well Nourished, No Distress, Calm Eyes: Yes: WNL, EOM Intact HENT: Yes: WNL Neck: Yes: WNL Cardiovascular: Yes: Regular Rate and Rhythm Respiratory: Yes: On Nasal O2, Rhonchi Gastrointestinal: Yes: WNL ...Rectal Exam: Yes: Deferred Genitourinary: Yes: Dupree Present Musculoskeletal: Yes: Muscle Weakness (R arm) Integumentary: Yes: WNL Neurological: Yes: WNL, Alert, Oriented, Cran Nerves II-XII Intact ...Motor Strength: RUE (weakness when lifting arm above head, otherwise 5/5) Psychiatric: Yes: WNL, Alert, Oriented Labs: CBC, BMP 11/11/19 06:00 11/11/19 06:00 INR, PTT INR 1.03 (0.83-1.09) 11/09/19 14:00 Problem List - Problems (1) BRANT (acute kidney injury) Code(s): N17.9 - ACUTE KIDNEY FAILURE, UNSPECIFIED (2) Acute on chronic systolic and diastolic heart failure, NYHA class 2 Code(s): I50.43 - ACUTE ON CHRONIC COMBINED SYSTOLIC AND DIASTOLIC HRT FAIL (3) COPD (chronic obstructive pulmonary disease) Code(s): J44.9 - CHRONIC OBSTRUCTIVE PULMONARY DISEASE, UNSPECIFIED (4) Diabetes mellitus Code(s): E11.9 - TYPE 2 DIABETES MELLITUS WITHOUT COMPLICATIONS Qualifiers: Diabetes mellitus type: type 2 Diabetes mellitus remarketing rep insulin use: with shelter use Diabetes mellitus complication status: with circulatory complication Diabetes mellitus complication detail: with peripheral angiopathy with gangrene Qualified Code(s): E11.52 - Type 2 diabetes mellitus with diabetic peripheral angiopathy with gangrene (5) History of CVA (cerebrovascular accident) Code(s): Z86.73 - PRSNL HX OF TIA (TIA), AND CEREB INFRC W/O RESID DEFICITS (6) History of [place] (myocardial infarction) Code(s): I25.2 - OLD MYOCARDIAL INFARCTION (7) Hyperkalemia Code(s): E87.5 - HYPERKALEMIA (8) Uremic encephalopathy Code(s): G93.41 - METABOLIC ENCEPHALOPATHY; N19 - UNSPECIFIED KIDNEY FAILURE Assessment/Plan Assessment and Plan: Neuro: - AAOX4, CN II-XII intact. - Does complain of weakness when raising right arm above head. - Will ctm. CV: - no longer requiring dopamine. - Permanent pacemaker. - History of afib currently off coumadin for 3 weeks. - Trop downtrending from 3.74->1.78, likely demand ischemia. - Leg edema resolved. - Echo: borderline concentric LVH, severe systolic heart failure w/ EF 30-35%, severe global hypokinesis of left ventricle - appreciate cardiac recs Respiratory: - patient still on 5L NC, on 2L at home. - Lungs continue to sound coarse and junky. - Patient without subjective SOB. - Will ctm. GI: - FOBT positive, history of upper GI bleed. - on IV Pantoprazole 40mg BID - Patient planned for upper endoscopy once stable. - appreciate GI recs Renal: - Cr 3.6->3.3, on hemodialysis via [place]. - Hyperkalemia resolved, K 4.4. - appreciate renal recs : - has UTI, receiving ceftriaxone - f/u urine cultures - ctm Heme/Onc: - Hgb downtrending from 11.1->10.3->9.5. Will ctm. Patient planned for upper endoscopy once stable. - WBC 10.3->9.5. - f/u blood cultures, NGTD Endocrine: - IDDM, glucose stable at 95 - not currently receiving insulin - ctm Spoke with Dr. Mckeon about cardiac clearance for endoscopy, and he states that he would like to do a stress test in the morning first. Patient given diet and planned for NPO after midnight. GI aware and on board for stress test before endoscopy.
[2019-11-11] MEDS ORDERED: FUROSEMIDE 40 MG/4 ML INJECTABLE VIAL IVPUSH ONE (08:19)
[2019-11-11] MEDS ORDERED: DEXTROSE 5%-WATER - 50 ML IVPB ONE (08:52)
[2019-11-11] MEDS ORDERED: cefTRIAXone SODIUM 1 GM VIAL ONE (08:52)
[2019-11-11] MEDS: PANTOPRAZOLE SODIUM 40 MG VIAL IVPUSH SCH ×2 (09:05→22:01)
[2019-11-11] MEDS: CEFTRIAXONE 1 GM in DEXTROSE 5%-WATER - 50 ML IVPB SCH (09:06)
--- NOTE | 2019-11-11 09:30 | PN ---
Progress Note, Physician Chief Complaint: alt MS History of Present Illness: denies any cp or sob, orthopnea R arm pain (elbow, axilla) very painful no palp, swelling - Current Medication List Current Medications: Active Medications Acetaminophen (Ofirmev Injection -) 1,000 mg IVPB Q6H PRN PRN Reason: MILD PAIN Last Admin: 11/10/19 21:14 Dose: 1,000 mg Albumin Human (Albumin Human 25%) 12.5 gm IVPB Q30M [facility] Chlorhexidine Gluconate (Hibiclens For Decolonization -) 1 applic TP HS [facility] Last Admin: 11/10/19 21:06 Dose: 1 applic Sodium Chloride (Normal Saline -) 250 mls @ 3,000 mls/hr IV PRN PRN PRN Reason: Hypotension during Dialysis Stop: 11/10/19 18:00 Dopamine HCl/Dextrose (Dopamine 400 Mg/D5w -) 400,000 mcg in 250 mls @ 18.711 mls/hr IVPB TITR [facility]; Protocol Last Admin: 11/10/19 19:51 Dose: Not Given Ceftriaxone Sodium 1 gm/ (Dextrose) 50 mls @ 200 mls/hr IVPB DAILY [facility]; Protocol Last Admin: 11/11/19 09:06 Dose: 200 mls/hr Magnesium Sulfate (Magnesium Sulfate) 2 gm IVPB ONCE ONE Stop: 11/11/19 08:55 Mupirocin (Bactroban Ointment (For Decolonization) -) 1 applic NS BID [facility] Stop: 11/14/19 21:59 Last Admin: 11/10/19 21:06 Dose: 1 applic Oxycodone HCl (Roxicodone -) 5 mg PO Q4H PRN PRN Reason: PAIN LEVEL 1-5 Last Admin: 11/11/19 05:48 Dose: 5 mg Pantoprazole Sodium (Protonix Iv) 40 mg IVPUSH BID [facility] Last Admin: 11/11/19 09:05 Dose: 40 mg - Objective Vital Signs: Vital Signs Temperature 98.2 F 11/11/19 06:00 Pulse Rate 72 11/11/19 08:00 Respiratory Rate 16 11/11/19 08:00 Blood Pressure 141/58 L 11/11/19 08:00 O2 Sat by Pulse Oximetry (%) 97 11/09/19 19:00 Constitutional: Yes: Well Nourished, No Distress, Calm Cardiovascular: Yes: Regular Rate and Rhythm, JVD, S1, S2. No: Gallop, Murmur Respiratory: Yes: Regular, CTA Bilaterally. No: Accessory Muscle Use, Rales, Wheezes Extremities: No: Cold Edema: No Neurological: Yes: Alert, Oriented Psychiatric: No: Agitated Labs: CBC, BMP 11/11/19 06:00 11/11/19 06:00 INR, PTT INR 1.03 (0.83-1.09) 11/09/19 14:00 Assessment/Plan ecg: a sense, V paced, PVC LHC 05/15: 70-80% mRCA (ISR), 70-80% RPDA (ISR); 70-80% mLAD; 80-90% pLCX (small vessel); 90-95% OM2 (large vessel); 80-90% prox Ramus (large vessel) ...nonobstructive dz of note [id number]% ostial RCA, 50-60% eccentric lesion OM1 (large vessel); EDP 30-->25 post-nitro EF 38% (diffuse WMAs) Syntax score 20 Echo 10/29/18: mod LVE, mild global LV hypo (45-50%). RV tds. mild TR. no vegetations noted Echo 05/15: mod to sev decr LVEF; severe hypokinesis of all lindsey except basal segments. nl RV. mild MR/TR. no peric eff. Echo 01/2017: mild global HK, lvef 45-50, nl rv, nl rvsp, mild lae, mild tr CXR: congestive changes, improved compared to prior tele: NSR, ? PAF (poor baseline, artifact); no pathological nicholas NSTEMI: -Type II (demand) vs Type I vs sespsis (confounded picture of sepsis, GI bleed, BRANT requiring urgent HD) -trop peaked 3.7 (ECG V-paced) -known CAD, as below - aspirin, heparin held given possible GI bleed (coffee ground emesis, guaiac + stool, history of GI bleed for which warfarin was stopped in the past) - await input from GI consult - echo pending hypotension, sepsis - transiently required dopamine, ? related to sepsis - BP stable to mildly up - observe x 24 hrs more: if remains stable in current range, will defer home meds resuming until tomorrow acute on chronic syst CHF, ischemic cardiomyopathy - CXR congested here, + mild JVD - holding home lasix, metoprolol for hypotension requiring pressors - given no resp sx's, will continue holding lasix today - await renal input re: further HD - echo pending CAD: -2004 s/p PCI ([facility]) to 100% occl RPDA ([facility]) with patent prior RCA stents at that time, EF 50% then; -2011 s/p anterior STEMI 2011 with Shafer LIBBY x 2 to mid LAD then ([facility]); residual 80% prox D1 (large vessel), 95% mD1; 70%mRCA (pre and post prior stents), 70% dCFX; (also 40% RPDA; 60% pCFX; 40% mCFX;) EF then 37% with AK of apex/AL lindsey and AK of IW; -2016 s/p NSTEMI in setting of sepsis/PNA-->[facility] with 70-80% mRCA (ISR), 70-80% RPDA (ISR); 70-80% mLAD; 80-90% pLCX (small vessel); 90-95% OM2 (large vessel); 80-90% prox Ramus (large vessel), 30-50% ostial RCA, 50-60% eccentric lesion OM1 (large vessel); - NSTEMI 02/2019, now s/p CABG at [facility] - holding aspirin, heparin gtt as above -cont statin -holding home BB, imdur in setting of hypotension BRANT, hyperkalemia - urgent HD in setting of hyperkalemia, manage per renal UTI - manage per primary transient alt mental status, toxic metabolic encephalopathy - likely 2/2 uremia vs UTI - ? back to baseline GI bleed - GI consulted - H/H drifting down very slowly - holding aspirin, AC HTN: - holding home meds for transient hypotension on day 1 - will likely resume tomorrow Atrial fibrillation - warfarin had reportedly been held as outpatient for GI bleed - hold AC pending GI workup, metoprolol held for low BPs - will require outpt f/u with treating machine puller over who is aware of prior decisions/rationale s/p PPM, hx mobitz I 2nd degree AVB - stable pacer function on EKG, tele here - outpatient follow up h/o CVA: -dx'd lacunar infarct 02/10 clinically then (slurred speech) -? acute CVA/TIA 11/13 - holding warfarin, aspirin as above est time in data review, pt exam, formulating mgmt plan of potentially life threatening problems = 38 min
[2019-11-11] MEDS ORDERED: MAGNESIUM SULF 50% (8.12 MEQ/2 ML-1 GM VIAL) IVPB ONE (09:45)
[2019-11-11] MEDS: MUPIROCIN 2% TOPICAL OINTMENT FOR DECOLONIZATION NS SCH ×2 (09:47→22:00)
--- NOTE | 2019-11-11 10:53 | PN ---
Teaching Attending Note Name of Resident: Ana María Collazo ATTENDING PHYSICIAN STATEMENT I saw and evaluated the patient. I reviewed the resident's note and discussed the case with the resident. I agree with the resident's findings and plan as documented. SUBJECTIVE: Patient seen and examined in the ICU. Awake and alert. Denies CP or SOB. Some dry cough. Right shoulder/arm discomfort. No acute events overnight. Intake & Output 11/08/19 11/09/19 11/10/19 11/11/19 23:59 23:59 23:59 23:59 Intake Total 625 400 Output Total 2750 900 Balance -2125 -500 Weight 185 lb 185 lb 14.4 oz 189 lb 1.6 oz Last Vital Signs Temp Pulse Resp BP Pulse Ox 98.2 F 72 16 141/58 L 97 11/11/19 06:00 11/11/19 08:00 11/11/19 08:00 11/11/19 08:00 11/09/19 19:00 Active Medications Acetaminophen (Ofirmev Injection -) 1,000 mg IVPB Q6H PRN PRN Reason: MILD PAIN Last Admin: 11/10/19 21:14 Dose: 1,000 mg Albumin Human (Albumin Human 25%) 12.5 gm IVPB Q30M [facility] Chlorhexidine Gluconate (Hibiclens For Decolonization -) 1 applic TP HS [facility] Last Admin: 11/10/19 21:06 Dose: 1 applic Sodium Chloride (Normal Saline -) 250 mls @ 3,000 mls/hr IV PRN PRN PRN Reason: Hypotension during Dialysis Stop: 11/10/19 18:00 Dopamine HCl/Dextrose (Dopamine 400 Mg/D5w -) 400,000 mcg in 250 mls @ 18.711 mls/hr IVPB TITR [facility]; Protocol Last Admin: 11/10/19 19:51 Dose: Not Given Ceftriaxone Sodium 1 gm/ (Dextrose) 50 mls @ 200 mls/hr IVPB DAILY [facility]; Protocol Last Admin: 11/11/19 09:06 Dose: 200 mls/hr Mupirocin (Bactroban Ointment (For Decolonization) -) 1 applic NS BID [facility] Stop: 11/14/19 21:59 Last Admin: 11/11/19 09:47 Dose: 1 applic Oxycodone HCl (Roxicodone -) 5 mg PO Q4H PRN PRN Reason: PAIN LEVEL 1-5 Last Admin: 11/11/19 05:48 Dose: 5 mg Pantoprazole Sodium (Protonix Iv) 40 mg IVPUSH BID [facility] Last Admin: 11/11/19 09:05 Dose: 40 mg EXAM Gen: Elderly man in bed in NAD Neuro: Awake and alert, non-focal HEENT: PERRL, dryMM Lungs: bilateral scattered coarse rhonchi ABD: Soft, ND, NT EXT: trace edema Laboratory Results - last 24 hr 11/10/19 11/11/19 11/11/19 16:29 06:00 06:00 WBC 8.5 RBC 3.27 L Hgb 9.5 L Hct 29.0 L MCV 88.8 MCH 29.1 MCHC 32.7 RDW 17.5 H Plt Count 146 MPV 9.4 D Sodium 139 Potassium 4.4 Chloride 107 Carbon Dioxide 25 Anion Gap 7 L BUN 94.5 H Creatinine 3.3 H Est GFR (CKD-EPI)AfAm 20.63 Est GFR (CKD-EPI)NonAf 17.80 POC Glucometer 85 Random Glucose 95 Calcium 7.5 L Phosphorus 5.1 H Magnesium 1.5 L Total Bilirubin 0.4 AST 20 ALT 23 Alkaline Phosphatase 90 Creatine Kinase Troponin I Total Protein 5.9 L Albumin 3.1 L 11/11/19 06:00 WBC RBC Hgb Hct MCV MCH MCHC RDW Plt Count MPV Sodium Potassium Chloride Carbon Dioxide Anion Gap BUN Creatinine Est GFR (CKD-EPI)AfAm Est GFR (CKD-EPI)NonAf POC Glucometer Random Glucose Calcium Phosphorus Magnesium Total Bilirubin AST ALT Alkaline Phosphatase Creatine Kinase 149 Troponin I 1.78 H* Total Protein Albumin Assessment/Plan ARF Resolved Septic Shock CHF HTN CAD Dyslipidemia S/P CABG PPM R/O Volume Overload GI Bleed Atrial Fibrillation HD per Renal O2 as needed Normal transfusion thresholds: 8 Strict I & O ABX Per ID Monitor off Dopamine PO as tolerated PPI Cardiac Telemetry monitoring Dr Perez
--- NOTE | 2019-11-11 10:53 | ECHO ---
Name: MERVAT COX Exam:Adult Echocardiogram Study Date: 11/11/2019 08:16 AM Age: 69 yrs Reason For Study: CHF Height: 69 in Weight: 220 lb BSA: 2.2 m2 MMode/2D Measurements & Calculations IVSd: 1.2 cm Ao root diam: 2.8 cm LVIDd: 5.7 cm LA dimension: 4.4 cm LVIDs: 4.8 cm LVPWd: 1.1 cm EDV(Teich): 161.0 ml LVOT diam: 2.0 cm ESV(Teich): 106.8 ml LAV (MOD-bp): 59.3 ml Doppler Measurements & Calculations MV E max meño: 133.0 cm/sec Ao V2 max: 150.7 cm/sec MV A max meño: 107.7 cm/sec Ao max P.1 mmHg MV E/A: 1.2 MV dec time: 0.19 sec KERMIT(V,D): 1.9 cm2 LV V1 max P.2 mmHg TR max meño: 283.7 cm/sec LV V1 max: 88.8 cm/sec TR max P.5 mmHg PA V2 max: 105.9 cm/sec Med Peak E' Meño: 4.0 cm/sec PA max P.5 mmHg Med E/e': 33.0 Lat Peak E' Meño: 6.7 cm/sec Lat E/e': 19.7 Procedure A complete two-dimensional transthoracic echocardiogram was performed (2D, M-mode, Doppler and color flow Doppler). Technically limited study. Left Ventricle The left ventricle is normal in size. There is borderline concentric left ventricular hypertrophy. Le ft ventricular systolic function is severely reduced. Ejection Fraction = 30-35%. There is severe global hypokinesis of the left ventricle. Right Ventricle The right ventricle is not well visualized. There is a pacemaker lead in the right ventricle. Atria The left atrial size is normal. Right atrial size is normal. Mitral Valve There is mild mitral valve thickening. There is mild mitral annular calcification. There is mild mitr al regurgitation. Tricuspid Valve The tricuspid valve is normal in structure and function. There is mild tricuspid regurgitation. Pulmo nary artery systolic pressure is at least 43 mmHg if RA pressure is assumed 3 mmHg. Aortic Valve There is mild aortic sclerosis.;. No aortic regurgitation is present. Pulmonic Valve The pulmonic valve is not well visualized. Great Vessels The aortic root is normal size. Pericardium/Pleura There is no pericardial effusion. Interpretation Summary Technically limited study The left ventricle is normal in size. There is borderline concentric left ventricular hypertrophy. Left ventricular systolic function is severely reduced. There is severe global hypokinesis of the left ventricle. Ejection Fraction = 30-35%. There is a pacemaker lead in the right ventricle. The left atrial size is normal. Right atrial size is normal. There is mild mitral valve thickening. There is mild mitral annular calcification. There is mild mitral regurgitation. There is mild tricuspid regurgitation. Pulmonary artery systolic pressure is at least 43 mmHg if RA pressure is assumed 3 mmHg There is mild aortic sclerosis. There is no pericardial effusion. Fabricio Morales MD 11/11/2019 10:53 AM
[2019-11-11] MEDS ORDERED: ARTIFICIAL TEARS (POLYVINYL ALCOHOL) OPTH DROPS OU PRN (11:16)
--- NOTE | 2019-11-11 15:16 | CON.ID ---
Consult Consult Specialty:: infectious diseases - Past Medical History [employer]: Yes: CVA, Peripheral Neuropathy Cardio/Vascular: Yes: CHF, HTN, Hyperlipdemia, Hyperlipdemia, RI Pulmonary: Yes: COPD, O2 Dependent, Pneumonia, Previously Intubated Gastrointestinal: Yes: Other, GERD, Other Renal/: Yes: Renal Inusuff, Other Infectious Disease: Yes: MRSA Psych: Yes: Addictions Musculoskeletal: Yes: Other, Other Endocrine: Yes: Diabetes Mellitus - Past Surgical History Past Surgical History: Yes: CABG (4v), Permanent Pacemaker, Stent (PCIX5) - Alcohol/Substance Use Hx Alcohol Use: No History of Substance Use: reports: None - Smoking History Smoking history: Former smoker Have you smoked in the past 12 months: No Aproximately how many cigarettes per day: 30 If you are a former smoker, when did you quit?: 3 years - Social History Usual Living Arrangement: With Spouse ADL: Family Assistance History of Recent Travel: No Home Medications - Allergies Allergies/Adverse Reactions: Allergies Allergy/AdvReac Type Severity Reaction Status Date / Time No Known Allergies Allergy Verified 11/09/19 13:10 - Home Medications Home Medications: Ambulatory Orders Ferrous Sulfate [Feosol] 325 mg PO DAILY 04/15/19 Fluticasone Propionate 16 gm NS DAILY 04/15/19 Folic Acid - 1 mg PO DAILY 04/15/19 Insulin (LOG) Aspart [NovoLOG -] 0 units SQ ASDIR 04/15/19 Lansoprazole [Prevacid -] 30 mg PO DAILY 04/15/19 Oxycodone HCl 10 mg PO Q4H 04/15/19 Potassium Chloride [K-Dur -] 20 meq PO DAILY 04/15/19 Pregabalin [Lyrica -] 75 mg PO TID 04/15/19 Rosuvastatin [Crestor -] 20 mg PO DAILY 04/15/19 Tamsulosin HCl [Flomax -] 0.4 mg PO DAILY 04/15/19 Warfarin Na [Coumadin -] 5 mg PO DAILY@1800 04/15/19 Aspirin [ASA -] 81 mg PO DAILY #30 tab.chew 04/18/19 Furosemide [Lasix -] 80 mg PO BID@0600,1400 #60 tablet 04/18/19 Isosorbide Mononitrate [Imdur -] 30 mg PO DAILY #30 tab.sr.24h 04/18/19 Metoprolol Succinate [Toprol XL -] 25 mg PO BID #60 tab.sr.24h 04/18/19 Rosuvastatin [Crestor -] 20 mg PO HS #30 tablet 04/18/19 hydrALAZINE HCL [Apresoline -] 10 mg PO BID #60 tablet 04/18/19 Lisinopril [Zestril] 2.5 mg PO DAILY 11/09/19 Morphine Sulfate 30 mg PO BID 11/09/19 Oxycodone HCl 20 mg PO Q4H PRN 11/09/19 Pantoprazole Sodium 40 mg PO DAILY 11/09/19 Physical Exam Vital Signs: Vital Signs Temperature 98.0 F 11/11/19 14:00 Pulse Rate 66 11/11/19 14:00 Respiratory Rate 15 11/11/19 14:00 Blood Pressure 145/62 11/11/19 14:00 O2 Sat by Pulse Oximetry (%) 97 11/09/19 19:00 Labs: CBC, BMP 11/11/19 06:00 11/11/19 06:00
--- NOTE | 2019-11-11 15:30 | PN ---
Progress Note, Physician History of Present Illness: Pt seen and examined at bedside. He is more awake and alert today. He feels that his breathing is improved. - Current Medication List Current Medications: Active Medications Acetaminophen (Ofirmev Injection -) 1,000 mg IVPB Q6H PRN PRN Reason: MILD PAIN Last Admin: 11/10/19 21:14 Dose: 1,000 mg Albumin Human (Albumin Human 25%) 12.5 gm IVPB Q30M [facility] Artificial Tears (Artificial Tears) 1 drop OU BID PRN PRN Reason: DRY EYES Chlorhexidine Gluconate (Hibiclens For Decolonization -) 1 applic TP HS [facility] Last Admin: 11/10/19 21:06 Dose: 1 applic Sodium Chloride (Normal Saline -) 250 mls @ 3,000 mls/hr IV PRN PRN PRN Reason: Hypotension during Dialysis Stop: 11/10/19 18:00 Dopamine HCl/Dextrose (Dopamine 400 Mg/D5w -) 400,000 mcg in 250 mls @ 18.711 mls/hr IVPB TITR [facility]; Protocol Last Admin: 11/10/19 19:51 Dose: Not Given Ceftriaxone Sodium 1 gm/ (Dextrose) 50 mls @ 200 mls/hr IVPB DAILY [facility]; Protocol Last Admin: 11/11/19 09:06 Dose: 200 mls/hr Metoprolol Tartrate (Lopressor -) 25 mg PO BID [facility] Mupirocin (Bactroban Ointment (For Decolonization) -) 1 applic NS BID [facility] Stop: 11/14/19 21:59 Last Admin: 11/11/19 09:47 Dose: 1 applic Oxycodone HCl (Roxicodone -) 5 mg PO Q4H PRN PRN Reason: PAIN LEVEL 1-5 Last Admin: 11/11/19 10:49 Dose: 5 mg Pantoprazole Sodium (Protonix Iv) 40 mg IVPUSH BID [facility] Last Admin: 11/11/19 09:05 Dose: 40 mg - Objective Vital Signs: Vital Signs Temperature 98.0 F 11/11/19 14:00 Pulse Rate 66 11/11/19 14:00 Respiratory Rate 15 11/11/19 14:00 Blood Pressure 145/62 11/11/19 14:00 O2 Sat by Pulse Oximetry (%) 97 11/09/19 19:00 Constitutional: Yes: Calm Eyes: Yes: Conjunctiva Clear HENT: Yes: Atraumatic Neck: Yes: Supple Cardiovascular: Yes: S1, S2 Respiratory: Yes: On Nasal O2, Rhonchi Gastrointestinal: Yes: Soft Genitourinary: Yes: [place] Present Edema: Yes Edema: LLE: 2+, RLE: 2+ Neurological: Yes: Oriented Psychiatric: Yes: Oriented Labs: CBC, BMP 11/11/19 06:00 11/11/19 06:00 INR, PTT INR 1.03 (0.83-1.09) 11/09/19 14:00 Problem List - Problems (1) BRANT (acute kidney injury) Code(s): N17.9 - ACUTE KIDNEY FAILURE, UNSPECIFIED (2) Abnormal chest x-ray Code(s): R93.8 - ABNORMAL FINDINGS ON DIAGNOSTIC IMAGING OF [place] * DO NOT USE * Assessment/Plan Current Medications Generic Name Dose Route Start Last Admin Trade Name Freq PRN Reason Stop Dose Admin Acetaminophen 1,000 mg 11/10/19 13:08 11/10/19 21:14 Ofirmev Injection - IVPB 1,000 mg Q6H PRN Administration MILD PAIN Albumin Human 12.5 gm 11/09/19 18:00 Albumin Human 25% IVPB Q30M [facility] Artificial Tears 1 drop 11/11/19 11:16 Artificial Tears OU BID PRN DRY EYES Chlorhexidine Gluconate 1 applic 11/09/19 22:00 11/10/19 21:06 Hibiclens For Decolonization - TP 1 applic HS [facility] Administration Sodium Chloride 250 mls @ 3,000 mls/hr 11/09/19 18:00 Normal Saline - IV 11/10/19 18:00 PRN PRN Hypotension during Dialysis Dopamine HCl/Dextrose 400,000 mcg in 250 mls @ 18.711 mls/hr 11/09/19 19:15 11/10/19 19:51 Dopamine 400 Mg/D5w - IVPB Not Given TITR [facility] Protocol 5 MCG/KG/MIN Ceftriaxone Sodium 1 gm/ 50 mls @ 200 mls/hr 11/09/19 19:15 11/11/19 09:06 Dextrose IVPB 200 mls/hr DAILY [facility] Administration Protocol Metoprolol Tartrate 25 mg 11/11/19 22:00 Lopressor - PO BID [facility] Mupirocin 1 applic 11/09/19 22:00 11/11/19 09:47 Bactroban Ointment (For Decolonization) - NS 11/14/19 21:59 1 applic BID [facility] Administration Oxycodone HCl 5 mg 11/10/19 16:35 11/11/19 10:49 Roxicodone - PO 5 mg Q4H PRN Administration PAIN LEVEL 1-5 Pantoprazole Sodium 40 mg 11/09/19 22:00 11/11/19 09:05 Protonix Iv IVPUSH 40 mg BID [facility] Administration Impression 1. BRANT 2. hyperkalemia 3. metaboli acidosis 4. chf 5. uremia 6. fluid overload 7. chf 8. copd 9. cva Plan - cont lasix - monitor urine output - no need for HD today - repeat labs in am - d/c line tomorrow if no HD - am cxr
[2019-11-11 15:53] VITALS: BMI 29.6
[2019-11-11] MEDS: FUROSEMIDE 40 MG/4 ML INJECTABLE VIAL IVPUSH SCH (16:43)
[2019-11-11] MEDS ORDERED: DOPAMINE 400 MG/D5W - 400,000 MCG/250 ML INFUS.BAG IVPB SCH (17:04)
[2019-11-11] MEDS ORDERED: SODIUM CHLORIDE 250 ML IV PRN (17:04)
[2019-11-11] MEDS ORDERED: ALBUMIN HUMAN 25% 12.5 GM/50 ML VIAL IVPB SCH (17:30)
--- NOTE | 2019-11-11 18:10 | PN ---
Physical Exam: SUBJECTIVE: Patient seen and examined. He reports having a non-productive cough. He says he feels less SOB. OBJECTIVE: Vital Signs Period Temp Pulse Resp BP Sys/Chandra Pulse Ox Last 24 Hr 98 F-98.2 F 60-83 13-16 84-145/46-84 GENERAL: The patient is awake, alert, and fully oriented, in no acute distress. HEAD: Normal with no signs of trauma. EYES: PERRL, extraocular movements intact, sclera anicteric, conjunctiva clear. No ptosis. ENT: Ears normal, nares patent, oropharynx clear without exudates, moist mucous membranes. NECK: Trachea midline, full range of motion, supple. LUNGS: Breath sounds equal, clear to auscultation bilaterally, no wheezes, no crackles, no accessory muscle use. HEART: Regular rate and rhythm, S1, S2 without murmur, rub or gallop. ABDOMEN: Soft, nontender, nondistended, normoactive bowel sounds, no guarding, no rebound, no hepatosplenomegaly, no masses. EXTREMITIES: 2+ pulses, warm, well-perfused, no edema. NEUROLOGICAL: Cranial nerves II through XII grossly intact. Normal speech, gait not observed. PSYCH: Normal mood, normal affect. SKIN: Warm, dry, normal turgor, no rashes or lesions noted Laboratory Results - last 24 hr 11/09/19 11/11/19 11/11/19 20:00 06:00 06:00 WBC 8.5 RBC 3.27 L Hgb 9.5 L Hct 29.0 L MCV 88.8 MCH 29.1 MCHC 32.7 RDW 17.5 H Plt Count 146 MPV 9.4 D Sodium 139 Potassium 4.4 Chloride 107 Carbon Dioxide 25 Anion Gap 7 L BUN 94.5 H Creatinine 3.3 H Est GFR (CKD-EPI)AfAm 20.63 Est GFR (CKD-EPI)NonAf 17.80 POC Glucometer Random Glucose 95 Calcium 7.5 L Phosphorus 5.1 H Magnesium 1.5 L Total Bilirubin 0.4 AST 20 ALT 23 Alkaline Phosphatase 90 Creatine Kinase Troponin I Total Protein 5.9 L Albumin 3.1 L Hep C Ab Diagnostic 0.2 11/11/19 11/11/19 06:00 16:57 WBC RBC Hgb Hct MCV MCH MCHC RDW Plt Count MPV Sodium Potassium Chloride Carbon Dioxide Anion Gap BUN Creatinine Est GFR (CKD-EPI)AfAm Est GFR (CKD-EPI)NonAf POC Glucometer 89 Random Glucose Calcium Phosphorus Magnesium Total Bilirubin AST ALT Alkaline Phosphatase Creatine Kinase 149 Troponin I 1.78 H* Total Protein Albumin Hep C Ab Diagnostic Active Medications Generic Name Dose Route Start Last Admin Trade Name Freq PRN Reason Stop Dose Admin Acetaminophen 1,000 mg 11/11/19 17:04 Ofirmev Injection - IVPB Q6H PRN MILD PAIN Albumin Human 12.5 gm 11/11/19 17:30 Albumin Human 25% IVPB Q30M [facility] Artificial Tears 1 drop 11/11/19 11:16 Artificial Tears OU BID PRN DRY EYES Chlorhexidine Gluconate 1 applic 11/11/19 22:00 Hibiclens For Decolonization - TP HS [facility] Furosemide 40 mg 11/11/19 15:30 11/11/19 16:43 Lasix Injection - IVPUSH 40 mg BID@0600,1400 [facility] Administration Sodium Chloride 250 mls @ 3,000 mls/hr 11/11/19 17:04 Normal Saline - IV PRN PRN Hypotension during Dialysis Ceftriaxone Sodium 1 gm/ 50 mls @ 200 mls/hr 11/12/19 10:00 Dextrose IVPB DAILY [facility] Protocol Metoprolol Tartrate 25 mg 11/11/19 22:00 Lopressor - PO BID [facility] Mupirocin 1 applic 11/11/19 22:00 Bactroban Ointment (For Decolonization) - NS 11/14/19 21:59 BID [facility] Oxycodone HCl 5 mg 11/11/19 17:04 Roxicodone - PO Q4H PRN PAIN LEVEL 1-5 Pantoprazole Sodium 40 mg 11/11/19 22:00 Protonix Iv IVPUSH BID [facility] ASSESSMENT/PLAN:
[2019-11-11 20:07] LABS: HEP B CORE AB, TOT Negative (Negative)
[2019-11-11 20:58] LABS: EOS % 0.3 % (0-4.5); HEMATOCRIT 27.5 % (35.4-49); HEMOGLOBIN 8.8 GM/dL (11.7-16.9); LYMPH % 6.1 % (8-40); MCH 28.6 pg (25.7-33.7); MCHC 32.1 g/dl (32.0-35.9); MEAN CELL VOLUME 89.1 fl (80-96); MONO % 13.3 % (3.8-10.2); NEUT % 79.3 % (42.8-82.8); PLATELET COUNT 152 K/MM3 (134-434); RBC 3.08 M/mm3 (4.00-5.60); RDW 17.5 % (11.9-15.9); WHITE BLOOD COUNT 8.3 K/mm3 (4.0-10.0)
[2019-11-11] MEDS: CHLORHEXIDINE GLUCONATE 4% CLEANSER FOR DECOLONIZATION TP SCH (22:00)
[2019-11-11] MEDS: METOPROLOL TARTRATE 25 MG TABLET (FP) PO SCH (22:07)
[2019-11-12] MEDS: oxyCODONE HCL 5 MG TABLET PO PRN ×3 (02:03→19:06)
[2019-11-12] MEDS: FUROSEMIDE 40 MG/4 ML INJECTABLE VIAL IVPUSH SCH ×2 (06:03→13:59)
[2019-11-12 06:36] LABS: BASO % 1.4 % (0-2.0); EOS % 0.6 % (0-4.5); HEMATOCRIT 29.6 % (35.4-49); HEMOGLOBIN 9.7 GM/dL (11.7-16.9); LYMPH % 5.8 % (8-40); MCH 28.9 pg (25.7-33.7); MCHC 32.6 g/dl (32.0-35.9); MEAN CELL VOLUME 88.4 fl (80-96); MEAN PLT VOLUME 9.7 fl (7.5-11.1); MONO % 12.8 % (3.8-10.2); NEUT % 79.4 % (42.8-82.8); PLATELET COUNT 160 K/MM3 (134-434); RBC 3.35 M/mm3 (4.00-5.60); RDW 17.4 % (11.9-15.9); WHITE BLOOD COUNT 8.9 K/mm3 (4.0-10.0)
[2019-11-12 07:00] LABS: ALBUMIN 3.1 g/dl (3.4-5.0); BILIRUBIN,TOTAL 0.4 mg/dL (0.2-1); BLOOD UREA NITROGEN 89.1 mg/dL (7-18); CALCIUM 8.3 mg/dL (8.5-10.1); CREATININE 2.3 mg/dL (0.55-1.3); MAGNESIUM 1.9 mg/dL (1.8-2.4); PHOSPHOROUS 3.9 mg/dL (2.5-4.9); POTASSIUM 4.6 mmol/L (3.5-5.1)
[2019-11-12] MEDS: METOPROLOL TARTRATE 25 MG TABLET (FP) PO SCH ×3 (08:22→21:44)
[2019-11-12] MEDS: PANTOPRAZOLE SODIUM 40 MG VIAL IVPUSH SCH ×2 (08:22→13:56)
[2019-11-12] MEDS ORDERED: REGADENOSON 0.4 MG/5 ML PRE-FILLED SYRINGE IVPUSH ONE ×2 (09:15→10:06)
[2019-11-12 10:32] LABS: ANISOCYTOSIS 3+; MACROCYTOSIS 0; PLATELET ESTIMATE NORMAL
--- NOTE | 2019-11-12 13:06 | PN ---
Progress Note, Physician History of Present Illness: Pt seen and examined at bedside. He is awake and alert. he feels that his breathing is improving. - Current Medication List Current Medications: Active Medications Acetaminophen (Ofirmev Injection -) 1,000 mg IVPB Q6H PRN PRN Reason: MILD PAIN Albumin Human (Albumin Human 25%) 12.5 gm IVPB Q30M [facility] Artificial Tears (Artificial Tears) 1 drop OU BID PRN PRN Reason: DRY EYES Chlorhexidine Gluconate (Hibiclens For Decolonization -) 1 applic TP HS [facility] Last Admin: 11/11/19 22:00 Dose: 1 applic Furosemide (Lasix Injection -) 40 mg IVPUSH BID@0600,1400 [facility] Last Admin: 11/12/19 06:03 Dose: 40 mg Sodium Chloride (Normal Saline -) 250 mls @ 3,000 mls/hr IV PRN PRN PRN Reason: Hypotension during Dialysis Ceftriaxone Sodium 1 gm/ (Dextrose) 50 mls @ 200 mls/hr IVPB DAILY [facility]; Protocol Metoprolol Tartrate (Lopressor -) 25 mg PO BID [facility] Last Admin: 11/12/19 08:22 Dose: 25 mg Mupirocin (Bactroban Ointment (For Decolonization) -) 1 applic NS BID [facility] Stop: 11/14/19 21:59 Last Admin: 11/11/19 22:00 Dose: Not Given Oxycodone HCl (Roxicodone -) 5 mg PO Q4H PRN PRN Reason: PAIN LEVEL 1-5 Last Admin: 11/12/19 12:35 Dose: 5 mg Pantoprazole Sodium (Protonix Iv) 40 mg IVPUSH BID [facility] Last Admin: 11/12/19 08:22 Dose: 40 mg - Objective Vital Signs: Vital Signs Temperature 97.5 F L 11/12/19 07:55 Pulse Rate 60 11/12/19 07:55 Respiratory Rate 22 H 11/12/19 07:55 Blood Pressure 168/72 11/12/19 07:55 O2 Sat by Pulse Oximetry (%) 94 L 11/12/19 07:59 Constitutional: Yes: Calm Eyes: Yes: Conjunctiva Clear HENT: Yes: Atraumatic Neck: Yes: Supple Cardiovascular: Yes: S1, S2 Respiratory: Yes: CTA Bilaterally Gastrointestinal: Yes: Normal Bowel Sounds, Soft Genitourinary: Yes: WNL Musculoskeletal: Yes: WNL Edema: Yes Edema: LLE: 1+, RLE: 1+ Neurological: Yes: Oriented Psychiatric: Yes: Oriented Labs: CBC, BMP 11/12/19 05:30 11/12/19 05:30 INR, PTT INR 1.03 (0.83-1.09) 11/09/19 14:00 Problem List - Problems (1) BRANT (acute kidney injury) Code(s): N17.9 - ACUTE KIDNEY FAILURE, UNSPECIFIED (2) Abnormal chest x-ray Code(s): R93.8 - ABNORMAL FINDINGS ON DIAGNOSTIC IMAGING OF [place] * DO NOT USE * Assessment/Plan Current Medications Generic Name Dose Route Start Last Admin Trade Name Freq PRN Reason Stop Dose Admin Acetaminophen 1,000 mg 11/11/19 17:04 Ofirmev Injection - IVPB Q6H PRN MILD PAIN Albumin Human 12.5 gm 11/11/19 17:30 Albumin Human 25% IVPB Q30M [facility] Artificial Tears 1 drop 11/11/19 11:16 Artificial Tears OU BID PRN DRY EYES Chlorhexidine Gluconate 1 applic 11/11/19 22:00 11/11/19 22:00 Hibiclens For Decolonization - TP 1 applic HS [facility] Administration Furosemide 40 mg 11/11/19 15:30 11/12/19 06:03 Lasix Injection - IVPUSH 40 mg BID@0600,1400 [facility] Administration Sodium Chloride 250 mls @ 3,000 mls/hr 11/11/19 17:04 Normal Saline - IV PRN PRN Hypotension during Dialysis Ceftriaxone Sodium 1 gm/ 50 mls @ 200 mls/hr 11/12/19 10:00 Dextrose IVPB DAILY [facility] Protocol Metoprolol Tartrate 25 mg 11/11/19 22:00 11/12/19 08:22 Lopressor - PO 25 mg BID [facility] Administration Mupirocin 1 applic 11/11/19 22:00 11/11/19 22:00 Bactroban Ointment (For Decolonization) - NS 11/14/19 21:59 Not Given BID [facility] Oxycodone HCl 5 mg 11/11/19 17:04 11/12/19 12:35 Roxicodone - PO 5 mg Q4H PRN Administration PAIN LEVEL 1-5 Pantoprazole Sodium 40 mg 11/11/19 22:00 11/12/19 08:22 Protonix Iv IVPUSH 40 mg BID [facility] Administration Impression 1. BRANT 2. hyperkalemia 3. metaboli acidosis 4. chf 5. uremia 6. fluid overload 7. cva 8. copd Plan - renal function is improving - d/c shiley catheter - cont with lasix - repeat labs in am - brant likely cardiorenal - am cxr
[2019-11-12] MEDS ORDERED: cefTRIAXone SODIUM 1 GM VIAL ONE (13:58)
[2019-11-12] MEDS ORDERED: DEXTROSE 5%-WATER - 50 ML IVPB ONE (13:58)
[2019-11-12] MEDS: CEFTRIAXONE 1 GM in DEXTROSE 5%-WATER - 50 ML IVPB SCH (14:00)
--- NOTE | 2019-11-12 14:01 | PN.GI ---
GI Progress Note Subjective: No overt bleeding. Brown BM today No abdominal pain Has stress test today. Awaiting result His was present. he apparently had an EGD at [facility] some time in the spring/ fall of 2018. This was for bleeding. She states that he had an ulcer and was taken off coumadin. Colonoscopy was attempted but she explains that he did not clean out properly. He does not want another colonoscopy. EF is 30-35% - Objective Vital Signs: Vital Signs Temperature 97.5 F L 11/12/19 07:55 Pulse Rate 60 11/12/19 07:55 Respiratory Rate 22 H 11/12/19 07:55 Blood Pressure 168/72 11/12/19 07:55 O2 Sat by Pulse Oximetry (%) 94 L 11/12/19 07:59 Constitutional: Calm Eyes: No: Sclera Icterus Cardiovascular: Yes: Regular Rate and Rhythm Respiratory: Yes: CTA Bilaterally Gastrointestinal Inspection: No: Distention ...Auscultate: Yes: Normoactive Bowel Sounds ...Palpate: Yes: Soft. No: Tenderness ...Percussion: No: Tympanitic Edema: No (No LE edema) Labs: CBC, BMP 11/12/19 05:30 11/12/19 05:30 INR, PTT INR 1.03 (0.83-1.09) 11/09/19 14:00 Problem List - Problems (1) Melena Assessment/Plan: No further dark bowel movements Discussed with Dr. Guerra. Awaiting stress test prior to scheduling EGD. Discussed upper endoscopy with patient and his . Discussed potential risks of the procedure like but not limited to bleeding, perforation requiring surgery to repair, infection, sedation medication effects all of which could be potentially life threatening. He has agreed to the procedure. Monitor H/H Await cardiac clearance for procedure Obtain reports from previous endoscopic work-up at [facility] Changed to protonix 40mg PO daily Code(s): K92.1 - MELENA
--- NOTE | 2019-11-12 14:13 | PN ---
Progress Note, Physician Chief Complaint: seen and examined ICU Denies CP or SOB TELE: Intermittent A-V pacing, otherwise no new arrhythmias History of Present Illness: Nuclear stress report pending - Current Medication List Current Medications: Active Medications Acetaminophen (Ofirmev Injection -) 1,000 mg IVPB Q6H PRN PRN Reason: MILD PAIN Albumin Human (Albumin Human 25%) 12.5 gm IVPB Q30M [facility] Artificial Tears (Artificial Tears) 1 drop OU BID PRN PRN Reason: DRY EYES Chlorhexidine Gluconate (Hibiclens For Decolonization -) 1 applic TP HS [facility] Last Admin: 11/11/19 22:00 Dose: 1 applic Furosemide (Lasix Injection -) 40 mg IVPUSH BID@0600,1400 [facility] Last Admin: 11/12/19 13:59 Dose: 40 mg Sodium Chloride (Normal Saline -) 250 mls @ 3,000 mls/hr IV PRN PRN PRN Reason: Hypotension during Dialysis Ceftriaxone Sodium 1 gm/ (Dextrose) 50 mls @ 200 mls/hr IVPB DAILY [facility]; Protocol Last Admin: 11/12/19 14:00 Dose: 200 mls/hr Metoprolol Tartrate (Lopressor -) 25 mg PO BID [facility] Last Admin: 11/12/19 13:55 Dose: Not Given Mupirocin (Bactroban Ointment (For Decolonization) -) 1 applic NS BID [facility] Stop: 11/14/19 21:59 Last Admin: 11/11/19 22:00 Dose: Not Given Oxycodone HCl (Roxicodone -) 5 mg PO Q4H PRN PRN Reason: PAIN LEVEL 1-5 Last Admin: 11/12/19 12:35 Dose: 5 mg Pantoprazole Sodium (Protonix -) 40 mg PO DAILY [facility] - Objective Vital Signs: Vital Signs Temperature 97.5 F L 11/12/19 07:55 Pulse Rate 60 11/12/19 07:55 Respiratory Rate 22 H 11/12/19 07:55 Blood Pressure 168/72 11/12/19 07:55 O2 Sat by Pulse Oximetry (%) 94 L 11/12/19 07:59 Constitutional: Yes: No Distress Cardiovascular: Yes: Regular Rate and Rhythm Respiratory: Yes: CTA Bilaterally Gastrointestinal: Yes: Soft (NT) Edema: No Neurological: Yes: Alert, Oriented Labs: CBC, BMP 11/12/19 05:30 11/12/19 05:30 INR, PTT INR 1.03 (0.83-1.09) 11/09/19 14:00 - ....Imaging EKG: Image Reviewed Assessment/Plan Assessment/Plan ecg: a sense, V paced, PVC [facility] 05/15: 70-80% mRCA (ISR), 70-80% RPDA (ISR); 70-80% mLAD; 80-90% pLCX (small vessel); 90-95% OM2 (large vessel); 80-90% prox Ramus (large vessel) ...nonobstructive dz of note -08% ostial RCA, 50-60% eccentric lesion OM1 (large vessel); EDP 30-->25 post-nitro EF 38% (diffuse WMAs) Syntax score 20 Echo 10/29/18: mod LVE, mild global LV hypo (45-50%). RV tds. mild TR. no vegetations noted CXR: congestive changes, improved compared to prior tele: NSR, ? PAF (poor baseline, artifact); no pathological nicholas NSTEMI: -Type II (demand) vs Type I vs sespsis (confounded picture of sepsis, GI bleed, BRANT requiring urgent HD) -trop peaked 3.7 (ECG V-paced) -known CAD, as below - aspirin, heparin held given possible GI bleed (coffee ground emesis, guaiac + stool, history of GI bleed for which warfarin was stopped in the past) - GI following - echo here EF 30-35%, severe global hypok -Nuclear stress test done, result pending. hypotension, sepsis: - transiently required dopamine, ? related to sepsis - BP stable to mildly elevated. -Can likely reintroduce home BP meds acute on chronic syst CHF, ischemic cardiomyopathy: - CXR congested here, + mild JVD -receiving IV Lasix, renal following. CAD: -2004 s/p PCI ([facility]) to 100% occl RPDA ([facility]) with patent prior RCA stents at that time, EF 50% then; -2011 s/p anterior STEMI 2011 with [place] LIBBY x 2 to mid LAD then ([facility]); residual 80% prox D1 (large vessel), 95% mD1; 70%mRCA (pre and post prior stents), 70% dCFX; (also 40% RPDA; 60% pCFX; 40% mCFX;) EF then 37% with AK of apex/AL lindsey and AK of IW; -2016 s/p NSTEMI in setting of sepsis/PNA-->[facility] with 70-80% mRCA (ISR), 70-80% RPDA (ISR); 70-80% mLAD; 80-90% pLCX (small vessel); 90-95% OM2 (large vessel); 80-90% prox Ramus (large vessel), 30-50% ostial RCA, 50-60% eccentric lesion OM1 (large vessel); - NSTEMI 02/2019, now s/p CABG at [facility] - holding aspirin, heparin gtt as above -cont statin -holding home BB, imdur in setting of initial hypotension -Awaiting stress report prior recommendations re endoscopy BRANT, hyperkalemia: - urgent HD in setting of hyperkalemia, manage per renal UTI: - manage per primary transient alt mental status, toxic metabolic encephalopathy: - likely 2/2 uremia vs UTI - ? 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 acute CVA/TIA 11/13 - holding warfarin, aspirin as above
--- NOTE | 2019-11-12 14:37 | PN ---
Progress Note (short form) - Note Progress Note: Resting in NAD. Denies CP or SOB. Some dry cough. No acute events overnight. Intake & Output 11/09/19 11/10/19 11/11/19 11/12/19 23:59 23:59 23:59 23:59 Intake Total 625 400 150 Output Total 2750 900 2400 Balance -2125 -500 -2250 Weight 185 lb 185 lb 14.4 oz 189 lb 179 lb 3.773 oz Last Vital Signs Temp Pulse Resp BP Pulse Ox 97.5 F L 60 22 H 168/72 94 L 11/12/19 07:55 11/12/19 07:55 11/12/19 07:55 11/12/19 07:55 11/12/19 07:59 Active Medications Acetaminophen (Ofirmev Injection -) 1,000 mg IVPB Q6H PRN PRN Reason: MILD PAIN Albumin Human (Albumin Human 25%) 12.5 gm IVPB Q30M [facility] Artificial Tears (Artificial Tears) 1 drop OU BID PRN PRN Reason: DRY EYES Chlorhexidine Gluconate (Hibiclens For Decolonization -) 1 applic TP HS [facility] Last Admin: 11/11/19 22:00 Dose: 1 applic Furosemide (Lasix Injection -) 40 mg IVPUSH BID@0600,1400 [facility] Last Admin: 11/12/19 13:59 Dose: 40 mg Sodium Chloride (Normal Saline -) 250 mls @ 3,000 mls/hr IV PRN PRN PRN Reason: Hypotension during Dialysis Ceftriaxone Sodium 1 gm/ (Dextrose) 50 mls @ 200 mls/hr IVPB DAILY [facility]; Protocol Last Admin: 11/12/19 14:00 Dose: 200 mls/hr Metoprolol Tartrate (Lopressor -) 25 mg PO BID [facility] Last Admin: 11/12/19 13:55 Dose: Not Given Mupirocin (Bactroban Ointment (For Decolonization) -) 1 applic NS BID [facility] Stop: 11/14/19 21:59 Last Admin: 11/11/19 22:00 Dose: Not Given Oxycodone HCl (Roxicodone -) 5 mg PO Q4H PRN PRN Reason: PAIN LEVEL 1-5 Last Admin: 11/12/19 12:35 Dose: 5 mg Pantoprazole Sodium (Protonix -) 40 mg PO DAILY [facility] EXAM Gen: Elderly man in bed in NAD Neuro: Awake and alert, non-focal HEENT: PERRL, dryMM Lungs: bilateral scattered coarse rhonchi ABD: Soft, ND, NT EXT: trace edema Laboratory Results - last 24 hr 11/09/19 11/11/19 11/11/19 20:00 16:57 19:56 WBC RBC Hgb Hct MCV MCH MCHC RDW Plt Count MPV Absolute Neuts (auto) Neutrophils % Neutrophils % (Manual) Band Neutrophils % Lymphocytes % Lymphocytes % (Manual) Monocytes % Monocytes % (Manual) Eosinophils % Eosinophils % (Manual) Basophils % Basophils % (Manual) Myelocytes % (Man) Promyelocytes % (Man) Blast Cells % (Manual) Nucleated RBC % Metamyelocytes Hypochromia Platelet Estimate Polychromasia Poikilocytosis Anisocytosis Microcytosis Macrocytosis Sodium Potassium Chloride Carbon Dioxide Anion Gap BUN Creatinine Est GFR (CKD-EPI)AfAm Est GFR (CKD-EPI)NonAf POC Glucometer 89 168 Random Glucose Calcium Phosphorus Magnesium Total Bilirubin AST ALT Alkaline Phosphatase Total Protein Albumin Hep A IgM Ab Confirm Negative Hepatitis A Ab Total Positive H Hep Bs Antigen Negative Hep Bs Antibody Non reactive Hep B Core Total Ab Negative Hep B Core IgM Ab Negative Hepatitis Be Antibody Negative Hepatitis Be Antigen Negative 11/11/19 11/12/19 11/12/19 20:00 05:30 05:30 WBC 8.3 8.9 RBC 3.08 L 3.35 L Hgb 8.8 L 9.7 L Hct 27.5 L 29.6 L MCV 89.1 88.4 MCH 28.6 28.9 MCHC 32.1 32.6 RDW 17.5 H 17.4 H Plt Count 152 160 MPV 10.0 9.7 Absolute Neuts (auto) 6.6 7.0 Neutrophils % 79.3 79.4 Neutrophils % (Manual) 73.8 Band Neutrophils % 0.0 Lymphocytes % 6.1 L 5.8 L Lymphocytes % (Manual) 8.1 D Monocytes % 13.3 H 12.8 H Monocytes % (Manual) 11 H D Eosinophils % 0.3 0.6 D Eosinophils % (Manual) 0.0 D Basophils % 1.0 1.4 Basophils % (Manual) 0.0 Myelocytes % (Man) 3 H Promyelocytes % (Man) 0 Blast Cells % (Manual) 0 Nucleated RBC % 0 0 Metamyelocytes 1 D Hypochromia 0 Platelet Estimate Normal Polychromasia 0 Poikilocytosis 1+ Anisocytosis 3+ Microcytosis 3+ Macrocytosis 0 Sodium 140 Potassium 4.6 Chloride 109 H Carbon Dioxide 25 Anion Gap 6 L BUN 89.1 H Creatinine 2.3 H Est GFR (CKD-EPI)AfAm 31.92 Est GFR (CKD-EPI)NonAf 27.54 POC Glucometer Random Glucose 108 H Calcium 8.3 L Phosphorus 3.9 Magnesium 1.9 Total Bilirubin 0.4 AST 13 L ALT 22 Alkaline Phosphatase 86 Total Protein 6.0 L Albumin 3.1 L Hep A IgM Ab Confirm Hepatitis A Ab Total Hep Bs Antigen Hep Bs Antibody Hep B Core Total Ab Hep B Core IgM Ab Hepatitis Be Antibody Hepatitis Be Antigen 11/12/19 11/12/19 06:41 13:53 WBC RBC Hgb Hct MCV MCH MCHC RDW Plt Count MPV Absolute Neuts (auto) Neutrophils % Neutrophils % (Manual) Band Neutrophils % Lymphocytes % Lymphocytes % (Manual) Monocytes % Monocytes % (Manual) Eosinophils % Eosinophils % (Manual) Basophils % Basophils % (Manual) Myelocytes % (Man) Promyelocytes % (Man) Blast Cells % (Manual) Nucleated RBC % Metamyelocytes Hypochromia Platelet Estimate Polychromasia Poikilocytosis Anisocytosis Microcytosis Macrocytosis Sodium Potassium Chloride Carbon Dioxide Anion Gap BUN Creatinine Est GFR (CKD-EPI)AfAm Est GFR (CKD-EPI)NonAf POC Glucometer 117 189 Random Glucose Calcium Phosphorus Magnesium Total Bilirubin AST ALT Alkaline Phosphatase Total Protein Albumin Hep A IgM Ab Confirm Hepatitis A Ab Total Hep Bs Antigen Hep Bs Antibody Hep B Core Total Ab Hep B Core IgM Ab Hepatitis Be Antibody Hepatitis Be Antigen Assessment/Plan ARF Resolved Septic Shock CHF HTN CAD Dyslipidemia S/P CABG PPM R/O Volume Overload GI Bleed Atrial Fibrillation HD per Renal O2 as needed Normal transfusion thresholds: 8 Strict I & O ABX Per ID PO as tolerated PPI Cardiac Telemetry monitoring Dr Perez
--- NOTE | 2019-11-12 15:13 | PN ---
Physical Exam: SUBJECTIVE: Patient seen and examined. No events overnight. Says he had a normal BM-brown, no blood. patient is s/p nuclear stress test. Offers no new complaints. OBJECTIVE: Vital Signs Period Temp Pulse Resp BP Sys/Chandra Pulse Ox Last 24 Hr 97.5 F-98.7 F 60-76 15-67 115-168/69-84 94 GENERAL: in nad, comfortable in bed EYES: PERRL, conjunctiva clear. No ptosis. ENT: dry mucous membranes. NECK: supple. LUNGS: scattered course rhonchi HEART: RRR ABDOMEN: Soft, nontender, nondistended, normoactive bowel sounds EXTREMITIES: 2+ pulses, trace edema Laboratory Results - last 24 hr 11/09/19 11/11/19 11/11/19 20:00 16:57 19:56 WBC RBC Hgb Hct MCV MCH MCHC RDW Plt Count MPV Absolute Neuts (auto) Neutrophils % Neutrophils % (Manual) Band Neutrophils % Lymphocytes % Lymphocytes % (Manual) Monocytes % Monocytes % (Manual) Eosinophils % Eosinophils % (Manual) Basophils % Basophils % (Manual) Myelocytes % (Man) Promyelocytes % (Man) Blast Cells % (Manual) Nucleated RBC % Metamyelocytes Hypochromia Platelet Estimate Polychromasia Poikilocytosis Anisocytosis Microcytosis Macrocytosis Sodium Potassium Chloride Carbon Dioxide Anion Gap BUN Creatinine Est GFR (CKD-EPI)AfAm Est GFR (CKD-EPI)NonAf POC Glucometer 89 168 Random Glucose Calcium Phosphorus Magnesium Total Bilirubin AST ALT Alkaline Phosphatase Total Protein Albumin Hep A IgM Ab Confirm Negative Hepatitis A Ab Total Positive H Hep Bs Antigen Negative Hep Bs Antibody Non reactive Hep B Core Total Ab Negative Hep B Core IgM Ab Negative Hepatitis Be Antibody Negative Hepatitis Be Antigen Negative 11/11/19 11/12/19 11/12/19 20:00 05:30 05:30 WBC 8.3 8.9 RBC 3.08 L 3.35 L Hgb 8.8 L 9.7 L Hct 27.5 L 29.6 L MCV 89.1 88.4 MCH 28.6 28.9 MCHC 32.1 32.6 RDW 17.5 H 17.4 H Plt Count 152 160 MPV 10.0 9.7 Absolute Neuts (auto) 6.6 7.0 Neutrophils % 79.3 79.4 Neutrophils % (Manual) 73.8 Band Neutrophils % 0.0 Lymphocytes % 6.1 L 5.8 L Lymphocytes % (Manual) 8.1 D Monocytes % 13.3 H 12.8 H Monocytes % (Manual) 11 H D Eosinophils % 0.3 0.6 D Eosinophils % (Manual) 0.0 D Basophils % 1.0 1.4 Basophils % (Manual) 0.0 Myelocytes % (Man) 3 H Promyelocytes % (Man) 0 Blast Cells % (Manual) 0 Nucleated RBC % 0 0 Metamyelocytes 1 D Hypochromia 0 Platelet Estimate Normal Polychromasia 0 Poikilocytosis 1+ Anisocytosis 3+ Microcytosis 3+ Macrocytosis 0 Sodium 140 Potassium 4.6 Chloride 109 H Carbon Dioxide 25 Anion Gap 6 L BUN 89.1 H Creatinine 2.3 H Est GFR (CKD-EPI)AfAm 31.92 Est GFR (CKD-EPI)NonAf 27.54 POC Glucometer Random Glucose 108 H Calcium 8.3 L Phosphorus 3.9 Magnesium 1.9 Total Bilirubin 0.4 AST 13 L ALT 22 Alkaline Phosphatase 86 Total Protein 6.0 L Albumin 3.1 L Hep A IgM Ab Confirm Hepatitis A Ab Total Hep Bs Antigen Hep Bs Antibody Hep B Core Total Ab Hep B Core IgM Ab Hepatitis Be Antibody Hepatitis Be Antigen 11/12/19 11/12/19 06:41 13:53 WBC RBC Hgb Hct MCV MCH MCHC RDW Plt Count MPV Absolute Neuts (auto) Neutrophils % Neutrophils % (Manual) Band Neutrophils % Lymphocytes % Lymphocytes % (Manual) Monocytes % Monocytes % (Manual) Eosinophils % Eosinophils % (Manual) Basophils % Basophils % (Manual) Myelocytes % (Man) Promyelocytes % (Man) Blast Cells % (Manual) Nucleated RBC % Metamyelocytes Hypochromia Platelet Estimate Polychromasia Poikilocytosis Anisocytosis Microcytosis Macrocytosis Sodium Potassium Chloride Carbon Dioxide Anion Gap BUN Creatinine Est GFR (CKD-EPI)AfAm Est GFR (CKD-EPI)NonAf POC Glucometer 117 189 Random Glucose Calcium Phosphorus Magnesium Total Bilirubin AST ALT Alkaline Phosphatase Total Protein Albumin Hep A IgM Ab Confirm Hepatitis A Ab Total Hep Bs Antigen Hep Bs Antibody Hep B Core Total Ab Hep B Core IgM Ab Hepatitis Be Antibody Hepatitis Be Antigen Active Medications Generic Name Dose Route Start Last Admin Trade Name Freq PRN Reason Stop Dose Admin Acetaminophen 1,000 mg 11/11/19 17:04 Ofirmev Injection - IVPB Q6H PRN MILD PAIN Albumin Human 12.5 gm 11/11/19 17:30 Albumin Human 25% IVPB Q30M [facility] Artificial Tears 1 drop 11/11/19 11:16 Artificial Tears OU BID PRN DRY EYES Chlorhexidine Gluconate 1 applic 11/11/19 22:00 11/11/19 22:00 Hibiclens For Decolonization - TP 1 applic HS [facility] Administration Furosemide 40 mg 11/11/19 15:30 11/12/19 13:59 Lasix Injection - IVPUSH 40 mg BID@0600,1400 [facility] Administration Sodium Chloride 250 mls @ 3,000 mls/hr 11/11/19 17:04 Normal Saline - IV PRN PRN Hypotension during Dialysis Ceftriaxone Sodium 1 gm/ 50 mls @ 200 mls/hr 11/12/19 10:00 11/12/19 14:00 Dextrose IVPB 200 mls/hr DAILY [facility] Administration Protocol Metoprolol Tartrate 25 mg 11/11/19 22:00 11/12/19 13:55 Lopressor - PO Not Given BID [facility] Mupirocin 1 applic 11/11/19 22:00 11/11/19 22:00 Bactroban Ointment (For Decolonization) - NS 11/14/19 21:59 Not Given BID [facility] Oxycodone HCl 5 mg 11/11/19 17:04 11/12/19 12:35 Roxicodone - PO 5 mg Q4H PRN Administration PAIN LEVEL 1-5 Pantoprazole Sodium 40 mg 11/13/19 10:00 Protonix - PO DAILY [facility] ASSESSMENT/PLAN: #ARF #Uremic encephalopathy #Resolved Septic Shock #CHF #HTN #CAD #Dyslipidemia #S/P CABG #PPM #R/O Volume Overload #GI Bleed #Atrial Fibrillation -patient s/p nuclear stress test. awaiting results -renal function improving. hold off on HD at this time. line removed. -follow nephrology rccs -strict i/o's -Day 4 IV abx: Ceftriaxone per ID -cont Lasix 40mg IV BID -Protonix decreased to 40mg PO daily -H&H stable -monitor CBC -ASA, heparin held -Plan for EGD in the AM -NPO after midnight -tele monitoring Visit type - Emergency Visit Emergency Visit: Yes ED Registration Date: 11/09/19 Care time: The patient presented to the Emergency Department on the above date and was hospitalized for further evaluation of their emergent condition. - New Patient This patient is new to me today: Yes Date on this admission: 11/12/19 - Critical Care Critical Care patient: No ATTENDING PHYSICIAN STATEMENT I saw and evaluated the patient. I reviewed the resident's note and discussed the case with the resident. I agree with the resident's findings and plan as documented. SUBJECTIVE: OBJECTIVE: ASSESSMENT AND PLAN:
[2019-11-12] MEDS: ACETAMINOPHEN 1000 MG/100 ML VIAL (NON FORMULARY) IVPB PRN ×2 (15:42→21:44)
[2019-11-12] MEDS: MUPIROCIN 2% TOPICAL OINTMENT FOR DECOLONIZATION NS SCH ×2 (16:59→21:45)
--- NOTE | 2019-11-12 18:25 | PN ---
Teaching Attending Note Name of Resident: Ynes Conway ATTENDING PHYSICIAN STATEMENT I saw and evaluated the patient. I reviewed the resident's note and discussed the case with the resident. I agree with the resident's findings and plan as documented. SUBJECTIVE: Seen and examined at bedside. Patient had stress test this AM, is now refusing EGD tomorrow. Wants to eat. Denies cp, sob, palpitations. OBJECTIVE: Vital Signs - 24 hr 11/12/19 11/12/19 11/12/19 06:00 07:55 07:59 Temperature 97.5 F L Pulse Rate 60 Respiratory 67 H 22 H Rate Blood Pressure 154/69 168/72 O2 Sat by Pulse 94 L Oximetry (%) 11/12/19 14:00 Temperature 98.4 F Pulse Rate 61 Respiratory 22 H Rate Blood Pressure 144/65 O2 Sat by Pulse Oximetry (%) PE: Constitutional: Yes: Well Nourished, No Distress, Calm Cardiovascular: Yes: WNL, Regular Rate and Rhythm Respiratory: Yes: WNL, Regular, CTA Bilaterally Gastrointestinal: Yes: WNL, Normal Bowel Sounds, Soft, Abdomen, Obese Musculoskeletal: Yes: WNL Extremities: Yes: WNL Edema: Yes Edema: LLE: Trace, RLE: Trace Neurological: Yes: WNL, Alert, Oriented x3 Labs: Current Medications Acetaminophen (Ofirmev Injection -) 1,000 mg IVPB Q6H PRN PRN Reason: MILD PAIN Last Admin: 11/12/19 15:42 Dose: 1,000 mg Albumin Human (Albumin Human 25%) 12.5 gm IVPB Q30M [facility] Artificial Tears (Artificial Tears) 1 drop OU BID PRN PRN Reason: DRY EYES Chlorhexidine Gluconate (Hibiclens For Decolonization -) 1 applic TP HS [facility] Last Admin: 11/11/19 22:00 Dose: 1 applic Furosemide (Lasix Injection -) 40 mg IVPUSH BID@0600,1400 [facility] Last Admin: 11/12/19 13:59 Dose: 40 mg Sodium Chloride (Normal Saline -) 250 mls @ 3,000 mls/hr IV PRN PRN PRN Reason: Hypotension during Dialysis Ceftriaxone Sodium 1 gm/ (Dextrose) 50 mls @ 200 mls/hr IVPB DAILY [facility]; Protocol Last Admin: 11/12/19 14:00 Dose: 200 mls/hr Metoprolol Tartrate (Lopressor -) 25 mg PO BID [facility] Last Admin: 11/12/19 13:55 Dose: Not Given Mupirocin (Bactroban Ointment (For Decolonization) -) 1 applic NS BID [facility] Stop: 11/14/19 21:59 Last Admin: 11/12/19 16:59 Dose: Not Given Oxycodone HCl (Roxicodone -) 5 mg PO Q4H PRN PRN Reason: PAIN LEVEL 1-5 Last Admin: 11/12/19 12:35 Dose: 5 mg Pantoprazole Sodium (Protonix -) 40 mg PO DAILY [facility] Laboratory Results - last 24 hr 11/09/19 11/11/19 11/11/19 20:00 19:56 20:00 WBC 8.3 RBC 3.08 L Hgb 8.8 L Hct 27.5 L MCV 89.1 MCH 28.6 MCHC 32.1 RDW 17.5 H Plt Count 152 MPV 10.0 Absolute Neuts (auto) 6.6 Neutrophils % 79.3 Neutrophils % (Manual) Band Neutrophils % Lymphocytes % 6.1 L Lymphocytes % (Manual) Monocytes % 13.3 H Monocytes % (Manual) Eosinophils % 0.3 Eosinophils % (Manual) Basophils % 1.0 Basophils % (Manual) Myelocytes % (Man) Promyelocytes % (Man) Blast Cells % (Manual) Nucleated RBC % 0 Metamyelocytes Hypochromia Platelet Estimate Polychromasia Poikilocytosis Anisocytosis Microcytosis Macrocytosis Sodium Potassium Chloride Carbon Dioxide Anion Gap BUN Creatinine Est GFR (CKD-EPI)AfAm Est GFR (CKD-EPI)NonAf POC Glucometer 168 Random Glucose Calcium Phosphorus Magnesium Total Bilirubin AST ALT Alkaline Phosphatase Total Protein Albumin Hep A IgM Ab Confirm Negative Hepatitis A Ab Total Positive H Hep Bs Antigen Negative Hep Bs Antibody Non reactive Hep B Core Total Ab Negative Hep B Core IgM Ab Negative Hepatitis Be Antibody Negative Hepatitis Be Antigen Negative 11/12/19 11/12/19 11/12/19 05:30 05:30 06:41 WBC 8.9 RBC 3.35 L Hgb 9.7 L Hct 29.6 L MCV 88.4 MCH 28.9 MCHC 32.6 RDW 17.4 H Plt Count 160 MPV 9.7 Absolute Neuts (auto) 7.0 Neutrophils % 79.4 Neutrophils % (Manual) 73.8 Band Neutrophils % 0.0 Lymphocytes % 5.8 L Lymphocytes % (Manual) 8.1 D Monocytes % 12.8 H Monocytes % (Manual) 11 H D Eosinophils % 0.6 D Eosinophils % (Manual) 0.0 D Basophils % 1.4 Basophils % (Manual) 0.0 Myelocytes % (Man) 3 H Promyelocytes % (Man) 0 Blast Cells % (Manual) 0 Nucleated RBC % 0 Metamyelocytes 1 D Hypochromia 0 Platelet Estimate Normal Polychromasia 0 Poikilocytosis 1+ Anisocytosis 3+ Microcytosis 3+ Macrocytosis 0 Sodium 140 Potassium 4.6 Chloride 109 H Carbon Dioxide 25 Anion Gap 6 L BUN 89.1 H Creatinine 2.3 H Est GFR (CKD-EPI)AfAm 31.92 Est GFR (CKD-EPI)NonAf 27.54 POC Glucometer 117 Random Glucose 108 H Calcium 8.3 L Phosphorus 3.9 Magnesium 1.9 Total Bilirubin 0.4 AST 13 L ALT 22 Alkaline Phosphatase 86 Total Protein 6.0 L Albumin 3.1 L Hep A IgM Ab Confirm Hepatitis A Ab Total Hep Bs Antigen Hep Bs Antibody Hep B Core Total Ab Hep B Core IgM Ab Hepatitis Be Antibody Hepatitis Be Antigen 11/12/19 11/12/19 13:53 17:32 WBC RBC Hgb Hct MCV MCH MCHC RDW Plt Count MPV Absolute Neuts (auto) Neutrophils % Neutrophils % (Manual) Band Neutrophils % Lymphocytes % Lymphocytes % (Manual) Monocytes % Monocytes % (Manual) Eosinophils % Eosinophils % (Manual) Basophils % Basophils % (Manual) Myelocytes % (Man) Promyelocytes % (Man) Blast Cells % (Manual) Nucleated RBC % Metamyelocytes Hypochromia Platelet Estimate Polychromasia Poikilocytosis Anisocytosis Microcytosis Macrocytosis Sodium Potassium Chloride Carbon Dioxide Anion Gap BUN Creatinine Est GFR (CKD-EPI)AfAm Est GFR (CKD-EPI)NonAf POC Glucometer 189 115 Random Glucose Calcium Phosphorus Magnesium Total Bilirubin AST ALT Alkaline Phosphatase Total Protein Albumin Hep A IgM Ab Confirm Hepatitis A Ab Total Hep Bs Antigen Hep Bs Antibody Hep B Core Total Ab Hep B Core IgM Ab Hepatitis Be Antibody Hepatitis Be Antigen Microbiology 11/09/19 00:30 Blood - Peripheral Venous Blood Culture - Preliminary NO GROWTH OBTAINED AFTER 48 HOURS, INCUBATION TO CONTINUE FOR 3 DAYS. 11/09/19 20:10 Blood - Peripheral Venous Blood Culture - Preliminary NO GROWTH OBTAINED AFTER 48 HOURS, INCUBATION TO CONTINUE FOR 3 DAYS. all imaging reports reviewed Assessment: Uremic encephalopathy BRANT Hyperkalemia Metabolic Acidosis Upper GIB Demand ischemia Ischemic CMP COPD on home 02 CAD s/p CABG CKD DM2 CVA CHF Valvular heart disease sp PPM HTN HLD Plan: back to baseline mental status kidney function continues to improve, hyperkalemia resolved cw IV lasix demand ischemia-nuclear stress done this AM pending read 2decho report reviewed off pressors, started back on bb, monitor renal function FOBT positive, holding coumadin PPI IV plan for EGD in AM if stress test neg, patient refusing although says he'll do it if gets dinner tonight rocephin for uti, cx neg, treat for 5 days GI/cardio/renal/ICU eval Problem List - Problems (1) BRANT (acute kidney injury) Code(s): N17.9 - ACUTE KIDNEY FAILURE, UNSPECIFIED (2) Acute on chronic systolic and diastolic heart failure, NYHA class 2 Code(s): I50.43 - ACUTE ON CHRONIC COMBINED SYSTOLIC AND DIASTOLIC HRT FAIL (3) Acute respiratory failure Code(s): J96.00 - ACUTE RESPIRATORY FAILURE, UNSP W HYPOXIA OR HYPERCAPNIA (4) CAD (coronary artery disease) Code(s): I25.10 - ATHSCL HEART DISEASE OF [place] CORONARY ARTERY W/O ANG PCTRS Qualifiers: [place] vs. transplanted heart: [place] heart Associated angina: without angina (5) CKD (chronic kidney disease) Code(s): N18.9 - CHRONIC KIDNEY DISEASE, UNSPECIFIED Qualifiers: Chronic kidney disease stage: stage 2 (mild) Qualified Code(s): N18.2 - Chronic kidney disease, stage 2 (mild) (6) COPD (chronic obstructive pulmonary disease) Code(s): J44.9 - CHRONIC OBSTRUCTIVE PULMONARY DISEASE, UNSPECIFIED (7) Cardiomyopathy Code(s): I42.9 - CARDIOMYOPATHY, UNSPECIFIED (8) Diabetes mellitus Code(s): E11.9 - TYPE 2 DIABETES MELLITUS WITHOUT COMPLICATIONS Qualifiers: Diabetes mellitus type: type 2 Diabetes mellitus 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 insulin use: with 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 use Diabetes mellitus complication status: with circulatory complication Diabetes mellitus complication detail: with peripheral angiopathy with gangrene Qualified Code(s): E11.52 - Type 2 diabetes mellitus with diabetic peripheral angiopathy with gangrene (9) History of CVA (cerebrovascular accident) Code(s): Z86.73 - PRSNL HX OF TIA (TIA), AND CEREB INFRC W/O RESID DEFICITS (10) History of ME (myocardial infarction) Code(s): I25.2 - OLD MYOCARDIAL INFARCTION (11) Hyperkalemia Code(s): E87.5 - HYPERKALEMIA (12) Hyperlipidemia Code(s): E78.5 - HYPERLIPIDEMIA, UNSPECIFIED (13) Hypertension Code(s): I10 - ESSENTIAL (PRIMARY) HYPERTENSION Qualifiers: Hypertension type: essential hypertension Qualified Code(s): I10 - Essential (primary) hypertension (14) Uremic encephalopathy Code(s): G93.41 - METABOLIC ENCEPHALOPATHY; N19 - UNSPECIFIED KIDNEY FAILURE
--- NOTE | 2019-11-12 19:29 | PN ---
Progress Note, Physician History of Present Illness: stable no complaints pain wbc normalized - Current Medication List Current Medications: Active Medications Acetaminophen (Ofirmev Injection -) 1,000 mg IVPB Q6H PRN PRN Reason: MILD PAIN Last Admin: 11/12/19 15:42 Dose: 1,000 mg Albumin Human (Albumin Human 25%) 12.5 gm IVPB Q30M [facility] Artificial Tears (Artificial Tears) 1 drop OU BID PRN PRN Reason: DRY EYES Chlorhexidine Gluconate (Hibiclens For Decolonization -) 1 applic TP HS [facility] Last Admin: 11/11/19 22:00 Dose: 1 applic Furosemide (Lasix Injection -) 40 mg IVPUSH BID@0600,1400 [facility] Last Admin: 11/12/19 13:59 Dose: 40 mg Sodium Chloride (Normal Saline -) 250 mls @ 3,000 mls/hr IV PRN PRN PRN Reason: Hypotension during Dialysis Ceftriaxone Sodium 1 gm/ (Dextrose) 50 mls @ 200 mls/hr IVPB DAILY [facility]; Protocol Last Admin: 11/12/19 14:00 Dose: 200 mls/hr Metoprolol Tartrate (Lopressor -) 25 mg PO BID [facility] Last Admin: 11/12/19 13:55 Dose: Not Given Mupirocin (Bactroban Ointment (For Decolonization) -) 1 applic NS BID [facility] Stop: 11/14/19 21:59 Last Admin: 11/12/19 16:59 Dose: Not Given Oxycodone HCl (Roxicodone -) 5 mg PO Q4H PRN PRN Reason: PAIN LEVEL 1-5 Last Admin: 11/12/19 19:06 Dose: 5 mg Pantoprazole Sodium (Protonix -) 40 mg PO DAILY [facility] - Objective Vital Signs: Vital Signs Temperature 98.4 F 11/12/19 14:00 Pulse Rate 61 11/12/19 14:00 Respiratory Rate 22 H 11/12/19 14:00 Blood Pressure 144/65 11/12/19 14:00 O2 Sat by Pulse Oximetry (%) 94 L 11/12/19 07:59 Constitutional: Yes: No Distress, Calm Cardiovascular: Yes: S1, S2 Respiratory: Yes: Regular, CTA Bilaterally, Poor Air Entry Gastrointestinal: Yes: Normal Bowel Sounds, Soft Musculoskeletal: Yes: WNL Extremities: Yes: WNL Neurological: Yes: Alert, Oriented Psychiatric: Yes: Alert, Oriented Labs: CBC, BMP 11/12/19 05:30 11/12/19 05:30 INR, PTT INR 1.03 (0.83-1.09) 11/09/19 14:00 Assessment/Plan Problem List - Problems (1) RBANT (acute kidney injury) Code(s): N17.9 - ACUTE KIDNEY FAILURE, UNSPECIFIED (2) Acute on chronic systolic and diastolic heart failure, NYHA class 2 Code(s): I50.43 - ACUTE ON CHRONIC COMBINED SYSTOLIC AND DIASTOLIC HRT FAIL (3) Acute respiratory failure Code(s): J96.00 - ACUTE RESPIRATORY FAILURE, UNSP W HYPOXIA OR HYPERCAPNIA (4) CAD (coronary artery disease) Code(s): I25.10 - ATHSCL HEART DISEASE OF [place] CORONARY ARTERY W/O ANG PCTRS Qualifiers: [place] vs. transplanted heart: [place] heart Associated angina: without angina (5) CKD (chronic kidney disease) Code(s): N18.9 - CHRONIC KIDNEY DISEASE, UNSPECIFIED Qualifiers: Chronic kidney disease stage: stage 2 (mild) Qualified Code(s): N18.2 - Chronic kidney disease, stage 2 (mild) (6) COPD (chronic obstructive pulmonary disease) Code(s): J44.9 - CHRONIC OBSTRUCTIVE PULMONARY DISEASE, UNSPECIFIED (7) Cardiomyopathy Code(s): I42.9 - CARDIOMYOPATHY, UNSPECIFIED (8) Diabetes mellitus Code(s): E11.9 - TYPE 2 DIABETES MELLITUS WITHOUT COMPLICATIONS Qualifiers: Diabetes mellitus type: type 2 Diabetes mellitus fci insulin use: with fci use Diabetes mellitus complication status: with circulatory complication Diabetes mellitus complication detail: with peripheral angiopathy with gangrene Qualified Code(s): E11.52 - Type 2 diabetes mellitus with diabetic peripheral angiopathy with gangrene (9) History of CVA (cerebrovascular accident) Code(s): Z86.73 - PRSNL HX OF TIA (TIA), AND CEREB INFRC W/O RESID DEFICITS (10) History of MS (myocardial infarction) Code(s): I25.2 - OLD MYOCARDIAL INFARCTION (11) Hyperkalemia Code(s): E87.5 - HYPERKALEMIA (12) Hyperlipidemia Code(s): E78.5 - HYPERLIPIDEMIA, UNSPECIFIED (13) Hypertension Code(s): I10 - ESSENTIAL (PRIMARY) HYPERTENSION Qualifiers: Hypertension type: essential hypertension Qualified Code(s): I10 - Essential (primary) hypertension (14) Uremic encephalopathy Code(s): G93.41 - METABOLIC ENCEPHALOPATHY; N19 - UNSPECIFIED KIDNEY FAILURE plan 'continue current mgmt close watch stable all cx results noted
[2019-11-12] MEDS: CHLORHEXIDINE GLUCONATE 4% CLEANSER FOR DECOLONIZATION TP SCH (21:45)
[2019-11-13] MEDS: FUROSEMIDE 40 MG/4 ML INJECTABLE VIAL IVPUSH SCH ×2 (05:55→14:00)
[2019-11-13 06:03] VITALS: PULSE 65
[2019-11-13] MEDS: oxyCODONE HCL 5 MG TABLET PO PRN ×3 (06:05→14:00)
[2019-11-13 06:24] LABS: BASO % 1.2 % (0-2.0); EOS % 1.6 % (0-4.5); HEMATOCRIT 30.1 % (35.4-49); HEMOGLOBIN 9.9 GM/dL (11.7-16.9); LYMPH % 5.8 % (8-40); MCH 28.8 pg (25.7-33.7); MCHC 32.9 g/dl (32.0-35.9); MEAN CELL VOLUME 87.5 fl (80-96); MEAN PLT VOLUME 9.8 fl (7.5-11.1); MONO % 11.4 % (3.8-10.2); PLATELET COUNT 175 K/MM3 (134-434); RBC 3.44 M/mm3 (4.00-5.60); RDW 16.6 % (11.9-15.9); WHITE BLOOD COUNT 8.5 K/mm3 (4.0-10.0)
[2019-11-13 06:47] LABS: ALBUMIN 3.1 g/dl (3.4-5.0); BILIRUBIN,TOTAL 0.5 mg/dL (0.2-1); BLOOD UREA NITROGEN 69.1 mg/dL (7-18); CALCIUM 8.8 mg/dL (8.5-10.1); CREATININE 1.8 mg/dL (0.55-1.3); MAGNESIUM 1.8 mg/dL (1.8-2.4); PHOSPHOROUS 2.7 mg/dL (2.5-4.9); POTASSIUM 4.1 mmol/L (3.5-5.1); TOT PROT 6.2 g/dl (6.4-8.2)
--- NOTE | 2019-11-13 07:57 | PN ---
Physical Exam: SUBJECTIVE: Patient seen and examined. No acute events overnight. Offers no new complaints. Says he now wants to have the EGD this morning after talking to his about it. Has been NPO since midnight. OBJECTIVE: Vital Signs Period Temp Pulse Resp BP Sys/Chandra Pulse Ox Last 24 Hr 97.5 F-98.4 F 60-65 11-22 129-168/64-78 94-94 GENERAL: in nad, comfortable in bed EYES: PERRL, conjunctiva clear. No ptosis. ENT: dry mucous membranes. NECK: supple. LUNGS: scattered course rhonchi HEART: RRR ABDOMEN: Soft, nontender, nondistended, normoactive bowel sounds EXTREMITIES: 2+ pulses, trace edema Laboratory Results - last 24 hr 11/12/19 11/13/19 11/13/19 21:38 05:27 05:27 WBC 8.5 RBC 3.44 L Hgb 9.9 L Hct 30.1 L MCV 87.5 MCH 28.8 MCHC 32.9 RDW 16.6 H Plt Count 175 MPV 9.8 Absolute Neuts (auto) 6.8 Neutrophils % 80.0 Neutrophils % (Manual) Band Neutrophils % Lymphocytes % 5.8 L Lymphocytes % (Manual) Monocytes % 11.4 H Monocytes % (Manual) Eosinophils % 1.6 D Eosinophils % (Manual) Basophils % 1.2 Basophils % (Manual) Myelocytes % (Man) Promyelocytes % (Man) Blast Cells % (Manual) Nucleated RBC % 0 Metamyelocytes Hypochromia Platelet Estimate Polychromasia Poikilocytosis Anisocytosis Microcytosis Macrocytosis Sodium 142 Potassium 4.1 Chloride 108 H Carbon Dioxide 30 Anion Gap 5 L BUN 69.1 H Creatinine 1.8 H Est GFR (CKD-EPI)AfAm 42.93 Est GFR (CKD-EPI)NonAf 37.04 POC Glucometer 142 Random Glucose 113 H Calcium 8.8 Phosphorus 2.7 Magnesium 1.8 Total Bilirubin 0.5 AST 9 L ALT 17 Alkaline Phosphatase 88 Total Protein 6.2 L Albumin 3.1 L Active Medications Generic Name Dose Route Start Last Admin Trade Name Freq PRN Reason Stop Dose Admin Artificial Tears 1 drop 11/11/19 11:16 Artificial Tears OU BID PRN DRY EYES Chlorhexidine Gluconate 1 applic 11/11/19 22:00 11/12/19 21:45 Hibiclens For Decolonization - TP 1 applic HS [facility] Administration Furosemide 40 mg 11/11/19 15:30 11/13/19 05:55 Lasix Injection - IVPUSH 40 mg BID@0600,1400 [facility] Administration Ceftriaxone Sodium 1 gm/ 50 mls @ 200 mls/hr 11/12/19 10:00 11/12/19 14:00 Dextrose IVPB 200 mls/hr DAILY [facility] Administration Protocol Metoprolol Tartrate 25 mg 11/11/19 22:00 11/12/19 21:44 Lopressor - PO 25 mg BID [facility] Administration Mupirocin 1 applic 11/11/19 22:00 11/12/19 21:45 Bactroban Ointment (For Decolonization) - NS 11/14/19 21:59 Not Given BID [facility] Oxycodone HCl 5 mg 11/11/19 17:04 11/13/19 06:05 Roxicodone - PO 5 mg Q4H PRN Administration PAIN LEVEL 1-5 Pantoprazole Sodium 40 mg 11/13/19 10:00 Protonix - PO DAILY [facility] ASSESSMENT/PLAN: #ARF #Uremic encephalopathy #Resolved Septic Shock #CHF #HTN #CAD #Dyslipidemia #S/P CABG #PPM #Volume Overload #R/O GI Bleed #Atrial Fibrillation -Nuclear stress noted. Fixed defect involving distal anterior wall, apex. Severely reduced EF. -renal function continuing to improve. Cr 1.8 from 2.3 -follow nephrology rccs -strict i/o's. put out 2 L yesterday. now 77.7kg from 81.3 -Day 5 IV abx: Ceftriaxone per ID -cont Lasix 40mg IV BID -cont protonix 40mg PO daily -H&H stable -monitor CBC -ASA, heparin held -EGD was cancelled overnight due to patient refusing. Will discuss with GI today if able to have EGD. -currently NPO -cont. tele monitoring Visit type - Emergency Visit Emergency Visit: Yes ED Registration Date: 11/09/19 Care time: The patient presented to the Emergency Department on the above date and was hospitalized for further evaluation of their emergent condition. - New Patient This patient is new to me today: Yes Date on this admission: 11/13/19 - Critical Care Critical Care patient: No ATTENDING PHYSICIAN STATEMENT I saw and evaluated the patient. I reviewed the resident's note and discussed the case with the resident. I agree with the resident's findings and plan as documented. SUBJECTIVE: OBJECTIVE: ASSESSMENT AND PLAN:
--- NOTE | 2019-11-13 09:13 | PN.GI ---
GI Progress Note Subjective: No acute events Stress test findings reviewed and discussed with Dr. Guerra. He feels that Mr. Scott is high risk given his cardiac comorbidities. - Objective Vital Signs: Vital Signs Temperature 98.3 F 11/13/19 06:00 Pulse Rate 65 11/13/19 06:00 Respiratory Rate 18 11/13/19 06:00 Blood Pressure 156/78 11/13/19 06:00 O2 Sat by Pulse Oximetry (%) 94 L 11/12/19 19:39 Constitutional: Calm Eyes: No: Sclera Icterus Cardiovascular: Yes: Regular Rate and Rhythm Respiratory: Yes: CTA Bilaterally Gastrointestinal Inspection: No: Distention ...Auscultate: Yes: Normoactive Bowel Sounds ...Palpate: No: Hepatomegaly, Splenomegaly, Tenderness ...Percussion: No: Tympanitic Edema: No Neurological: Yes: Alert Labs: CBC, BMP 11/13/19 05:27 11/13/19 05:27 INR, PTT INR 1.03 (0.83-1.09) 11/09/19 14:00 Problem List - Problems (1) Melena Assessment/Plan: No further bleeding. Discussed options with Mr. Scott including upper endoscopy, transfer to [facility] to continue GI bleed work up given the high risk nature of his case, not having procedure and resuming ASA. He does not want to be transferred and prefers having the procedure performed here. For now: Protonix 40mg once daily NPO IV Hydration Will discuss with anesthesia Code(s): K92.1 - MELENA
--- NOTE | 2019-11-13 09:31 | PN ---
Progress Note (short form) - Note Progress Note: Spoke with Anesthesiologist Dr. Balderrama. As this is not an emergent procedure, advised transfer to tertiary care center for further endoscopic evaluation. Problem List - Problems (1) Melena Code(s): K92.1 - MELENA
--- NOTE | 2019-11-13 09:40 | PN ---
Progress Note (short form) - Note Progress Note: Spoke with patient and his via telephone. They are OK with the plan for transfer. Informed primary team as well. Clears for now Problem List - Problems (1) Ania Code(s): K92.1 Miguelina ROQUE
[2019-11-13] MEDS ORDERED: cefTRIAXone SODIUM 1 GM VIAL ONE (09:55)
[2019-11-13] MEDS ORDERED: DEXTROSE 5%-WATER - 50 ML IVPB ONE (09:56)
[2019-11-13] MEDS ORDERED: PANTOPRAZOLE 40 MG TABLET (FP) PO SCH (10:00)
[2019-11-13] MEDS: METOPROLOL TARTRATE 25 MG TABLET (FP) PO SCH (10:01)
[2019-11-13] MEDS: CEFTRIAXONE 1 GM in DEXTROSE 5%-WATER - 50 ML IVPB SCH (10:02)
--- NOTE | 2019-11-13 11:13 | PN ---
Progress Note (short form) - Note Progress Note: s: no chest pain, palps, dizziness, dyspnea. Current Medications Artificial Tears (Artificial Tears) 1 drop OU BID PRN PRN Reason: DRY EYES Chlorhexidine Gluconate (Hibiclens For Decolonization -) 1 applic TP HS [facility] Last Admin: 11/12/19 21:45 Dose: 1 applic Furosemide (Lasix Injection -) 40 mg IVPUSH BID@0600,1400 [facility] Last Admin: 11/13/19 05:55 Dose: 40 mg Ceftriaxone Sodium 1 gm/ (Dextrose) 50 mls @ 200 mls/hr IVPB DAILY [facility]; Protocol Last Admin: 11/13/19 10:02 Dose: 200 mls/hr Metoprolol Tartrate (Lopressor -) 25 mg PO BID [facility] Last Admin: 11/13/19 10:01 Dose: 25 mg Mupirocin (Bactroban Ointment (For Decolonization) -) 1 applic NS BID [facility] Stop: 11/14/19 21:59 Last Admin: 11/12/19 21:45 Dose: Not Given Oxycodone HCl (Roxicodone -) 5 mg PO Q4H PRN PRN Reason: PAIN LEVEL 1-5 Last Admin: 11/13/19 10:01 Dose: 5 mg Pantoprazole Sodium (Protonix -) 40 mg PO DAILY [facility] Last Admin: 11/13/19 10:00 Dose: 40 mg Vital Signs Period Temp Pulse Resp BP Sys/Chandra Pulse Ox Last 24 Hr 98.2 F-98.4 F 60-65 11-22 129-156/64-78 94-96 Constitutional: Yes: No Distress Cardiovascular: Yes: Regular Rate and Rhythm, nl s1 s2 Respiratory: Yes: CTA Bilaterally Gastrointestinal: Yes: Soft (NT) Edema: No Neurological: Yes: Alert, Oriented no jaundice, diaphoresis not agitated Assessment/Plan ecg: a sense, V paced, PVC [facility] 05/15: 70-80% mRCA (ISR), 70-80% RPDA (ISR); 70-80% mLAD; 80-90% pLCX (small vessel); 90-95% OM2 (large vessel); 80-90% prox Ramus (large vessel) ...nonobstructive dz of note [id number]% ostial RCA, 50-60% eccentric lesion OM1 (large vessel); EDP 30-->25 post-nitro EF 38% (diffuse WMAs) Syntax score 20 Echo 10/29/18: mod LVE, mild global LV hypo (45-50%). RV tds. mild TR. 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 Severely reduced EF. No ischemia. GI bleed: - GI consulted - H/H drifting down very slowly - holding aspirin, AC - plan for endoscopy - patient at high risk for any procedure including upper/ lower endoscopy - patient to be transferred to [facility] for further GI evaluation hypotension, sepsis: - transiently required dopamine, ? related to sepsis - off pressors, BP stable acute on chronic syst CHF, ischemic cardiomyopathy: - CXR congested here, + mild JVD -receiving IV Lasix, renal following. CAD: -2004 s/p PCI ([facility]) to 100% occl RPDA ([facility]) with patent prior RCA stents at that time, EF 50% then; -2011 s/p anterior STEMI 2011 with [place] [facility]BY x 2 to mid LAD then ([facility]); residual 80% prox D1 (large vessel), 95% mD1; 70%mRCA (pre and post prior stents), 70% dCFX; (also 40% RPDA; 60% pCFX; 40% mCFX;) EF then 37% with AK of apex/AL lindsey and AK of IW; -2016 s/p NSTEMI in setting of sepsis/PNA-->[facility] with 70-80% mRCA (ISR), 70-80% RPDA (ISR); 70-80% mLAD; 80-90% pLCX (small vessel); 90-95% OM2 (large vessel); 80-90% prox Ramus (large vessel), 30-50% ostial RCA, 50-60% eccentric lesion OM1 (large vessel); - NSTEMI 02/2019, now s/p CABG at [facility] - holding aspirin, heparin gtt as above -cont statin -holding home BB, imdur in setting of initial hypotension BRANT, hyperkalemia: - urgent HD in setting of hyperkalemia, manage per renal UTI: - manage per primary transient alt mental status, toxic metabolic encephalopathy: - likely 2/2 uremia vs UTI - now at baseline baseline HTN: - BP improved - resumed home metoprolol, imdur, hydralazine - hold lisinopril in setting of BRANT Atrial fibrillation: - warfarin had reportedly been held as outpatient for GI bleed - per pt had bleeding ulcer on prior GI workup at [facility] for which aspirin and warfarin were held - hold AC pending GI workup - cont metoprolol s/p PPM, hx mobitz I 2nd degree AVB: - stable pacer function on EKG, tele here - outpatient follow up h/o CVA: -dx'd lacunar infarct 02/10 clinically then (slurred speech) -? acute CVA/TIA 11/13 - holding warfarin, aspirin as above
[2019-11-13] MEDS ORDERED: hydrALAZINE HCL 10 MG TABLET PO SCH (11:15)
[2019-11-13] MEDS ORDERED: ISOSORBIDE MONONITRATE 30 MG TAB.SR.24H (FP) PO SCH (11:15)
--- NOTE | 2019-11-13 11:48 | PN ---
Progress Note, Physician History of Present Illness: patient stable plan for transfer for further procedure and work up for gi bleed clinically looks stable - Current Medication List Current Medications: Active Medications Artificial Tears (Artificial Tears) 1 drop OU BID PRN PRN Reason: DRY EYES Chlorhexidine Gluconate (Hibiclens For Decolonization -) 1 applic TP HS [facility] Last Admin: 11/12/19 21:45 Dose: 1 applic Furosemide (Lasix Injection -) 40 mg IVPUSH BID@0600,1400 [facility] Last Admin: 11/13/19 05:55 Dose: 40 mg Hydralazine HCl (Apresoline -) 10 mg PO BID [facility] Ceftriaxone Sodium 1 gm/ (Dextrose) 50 mls @ 200 mls/hr IVPB DAILY [facility]; Protocol Last Admin: 11/13/19 10:02 Dose: 200 mls/hr Isosorbide Mononitrate (Imdur -) 30 mg PO DAILY [facility] Metoprolol Tartrate (Lopressor -) 25 mg PO BID [facility] Last Admin: 11/13/19 10:01 Dose: 25 mg Mupirocin (Bactroban Ointment (For Decolonization) -) 1 applic NS BID [facility] Stop: 11/14/19 21:59 Last Admin: 11/12/19 21:45 Dose: Not Given Oxycodone HCl (Roxicodone -) 5 mg PO Q4H PRN PRN Reason: PAIN LEVEL 1-5 Last Admin: 11/13/19 10:01 Dose: 5 mg Pantoprazole Sodium (Protonix -) 40 mg PO DAILY [facility] Last Admin: 11/13/19 10:00 Dose: 40 mg - Objective Vital Signs: Vital Signs Temperature 98.4 F 11/13/19 10:07 Pulse Rate 65 11/13/19 06:00 Respiratory Rate 18 11/13/19 09:00 Blood Pressure 156/78 11/13/19 06:00 O2 Sat by Pulse Oximetry (%) 96 11/13/19 09:00 Constitutional: Yes: No Distress, Calm Cardiovascular: Yes: S1, S2 Respiratory: Yes: Regular, CTA Bilaterally Musculoskeletal: Yes: WNL Extremities: Yes: Other Neurological: Yes: Alert, Oriented Psychiatric: Yes: Alert, Oriented Labs: CBC, BMP 11/13/19 05:27 11/13/19 05:27 INR, PTT INR 1.03 (0.83-1.09) 11/09/19 14:00 Assessment/Plan Problem List - Problems (1) BRANT (acute kidney injury) Code(s): N17.9 - ACUTE KIDNEY FAILURE, UNSPECIFIED (2) Acute on chronic systolic and diastolic heart failure, NYHA class 2 Code(s): I50.43 - ACUTE ON CHRONIC COMBINED SYSTOLIC AND DIASTOLIC HRT FAIL (3) Acute respiratory failure Code(s): J96.00 - ACUTE RESPIRATORY FAILURE, UNSP W HYPOXIA OR HYPERCAPNIA (4) CAD (coronary artery disease) Code(s): I25.10 - ATHSCL HEART DISEASE OF [place] CORONARY ARTERY W/O ANG PCTRS Qualifiers: [place] vs. transplanted heart: [place] heart Associated angina: without angina (5) CKD (chronic kidney disease) Code(s): N18.9 - CHRONIC KIDNEY DISEASE, UNSPECIFIED Qualifiers: Chronic kidney disease stage: stage 2 (mild) Qualified Code(s): N18.2 - Chronic kidney disease, stage 2 (mild) (6) COPD (chronic obstructive pulmonary disease) Code(s): J44.9 - CHRONIC OBSTRUCTIVE PULMONARY DISEASE, UNSPECIFIED (7) Cardiomyopathy Code(s): I42.9 - CARDIOMYOPATHY, UNSPECIFIED (8) Diabetes mellitus Code(s): E11.9 - TYPE 2 DIABETES MELLITUS WITHOUT COMPLICATIONS Qualifiers: Diabetes mellitus type: type 2 Diabetes mellitus jail insulin use: with jail use Diabetes mellitus complication status: with circulatory complication Diabetes mellitus complication detail: with peripheral angiopathy with gangrene Qualified Code(s): E11.52 - Type 2 diabetes mellitus with diabetic peripheral angiopathy with gangrene (9) History of CVA (cerebrovascular accident) Code(s): Z86.73 - PRSNL HX OF TIA (TIA), AND CEREB INFRC W/O RESID DEFICITS (10) History of [place] (myocardial infarction) Code(s): I25.2 - OLD MYOCARDIAL INFARCTION (11) Hyperkalemia Code(s): E87.5 - HYPERKALEMIA (12) Hyperlipidemia Code(s): E78.5 - HYPERLIPIDEMIA, UNSPECIFIED (13) Hypertension Code(s): I10 - ESSENTIAL (PRIMARY) HYPERTENSION Qualifiers: Hypertension type: essential hypertension Qualified Code(s): I10 - Essential (primary) hypertension (14) Uremic encephalopathy Code(s): G93.41 - METABOLIC ENCEPHALOPATHY; N19 - UNSPECIFIED KIDNEY FAILURE (15) Melena Code(s): K92.1 - MELENA plan continue current mgmt 'plan to transfer monitor rest as per the team
[2019-11-13] MEDS: MUPIROCIN 2% TOPICAL OINTMENT FOR DECOLONIZATION NS SCH (12:43)
--- NOTE | 2019-11-13 12:54 | PN ---
Progress Note, Physician History of Present Illness: Pt seen and examined at bedside. He is awake and alert. He feels that his breathing is improved. - Current Medication List Current Medications: Active Medications Artificial Tears (Artificial Tears) 1 drop OU BID PRN PRN Reason: DRY EYES Chlorhexidine Gluconate (Hibiclens For Decolonization -) 1 applic TP HS [facility] Last Admin: 11/12/19 21:45 Dose: 1 applic Furosemide (Lasix Injection -) 40 mg IVPUSH BID@0600,1400 [facility] Last Admin: 11/13/19 05:55 Dose: 40 mg Hydralazine HCl (Apresoline -) 10 mg PO BID [facility] Ceftriaxone Sodium 1 gm/ (Dextrose) 50 mls @ 200 mls/hr IVPB DAILY [facility]; Protocol Last Admin: 11/13/19 10:02 Dose: 200 mls/hr Isosorbide Mononitrate (Imdur -) 30 mg PO DAILY [facility] Last Admin: 11/13/19 12:44 Dose: 30 mg Metoprolol Tartrate (Lopressor -) 25 mg PO BID [facility] Last Admin: 11/13/19 10:01 Dose: 25 mg Mupirocin (Bactroban Ointment (For Decolonization) -) 1 applic NS BID [facility] Stop: 11/14/19 21:59 Last Admin: 11/13/19 12:43 Dose: Not Given Oxycodone HCl (Roxicodone -) 5 mg PO Q4H PRN PRN Reason: PAIN LEVEL 1-5 Last Admin: 11/13/19 10:01 Dose: 5 mg Pantoprazole Sodium (Protonix -) 40 mg PO DAILY [facility] Last Admin: 11/13/19 10:00 Dose: 40 mg - Objective Vital Signs: Vital Signs Temperature 98.4 F 11/13/19 10:07 Pulse Rate 65 11/13/19 06:00 Respiratory Rate 18 11/13/19 09:00 Blood Pressure 156/78 11/13/19 06:00 O2 Sat by Pulse Oximetry (%) 96 11/13/19 09:00 Constitutional: Yes: Calm Eyes: Yes: Conjunctiva Clear HENT: Yes: Atraumatic Neck: Yes: Supple Cardiovascular: Yes: S1, S2 Respiratory: Yes: CTA Bilaterally Gastrointestinal: Yes: Normal Bowel Sounds, Soft Genitourinary: Yes: WNL Musculoskeletal: Yes: WNL Edema: Yes Edema: LLE: 1+, RLE: 1+ Neurological: Yes: Oriented Psychiatric: Yes: Oriented Labs: CBC, BMP 11/13/19 05:27 11/13/19 05:27 INR, PTT INR 1.03 (0.83-1.09) 11/09/19 14:00 Problem List - Problems (1) BRANT (acute kidney injury) Code(s): N17.9 - ACUTE KIDNEY FAILURE, UNSPECIFIED (2) Abnormal chest x-ray Code(s): R93.8 - ABNORMAL FINDINGS ON DI[facility]NOSTIC IMAGING OF [place] * DO NOT USE * Assessment/Plan Current Medications Generic Name Dose Route Start Last Admin Trade Name Freq PRN Reason Stop Dose Admin Artificial Tears 1 drop 11/11/19 11:16 Artificial Tears OU BID PRN DRY EYES Chlorhexidine Gluconate 1 applic 11/11/19 22:00 11/12/19 21:45 Hibiclens For Decolonization - TP 1 applic HS [facility] Administration Furosemide 40 mg 11/11/19 15:30 11/13/19 05:55 Lasix Injection - IVPUSH 40 mg BID@0600,1400 [facility] Administration Hydralazine HCl 10 mg 11/13/19 11:15 Apresoline - PO BID [facility] Ceftriaxone Sodium 1 gm/ 50 mls @ 200 mls/hr 11/12/19 10:00 11/13/19 10:02 Dextrose IVPB 200 mls/hr DAILY [facility] Administration Protocol Isosorbide Mononitrate 30 mg 11/13/19 11:15 11/13/19 12:44 Imdur - PO 30 mg DAILY [facility] Administration Metoprolol Tartrate 25 mg 11/11/19 22:00 11/13/19 10:01 Lopressor - PO 25 mg BID [facility] Administration Mupirocin 1 applic 11/11/19 22:00 11/13/19 12:43 Bactroban Ointment (For Decolonization) - NS 11/14/19 21:59 Not Given BID [facility] Oxycodone HCl 5 mg 11/11/19 17:04 11/13/19 10:01 Roxicodone - PO 5 mg Q4H PRN Administration PAIN LEVEL 1-5 Pantoprazole Sodium 40 mg 11/13/19 10:00 11/13/19 10:00 Protonix - PO 40 mg DAILY [facility] Administration Impression 1. BRANT requiring urgent hd 2. hyperkalemia 3. metaboli acidosis 4. chf 5. uremia 6. fluid overload 7. cva 8. copd Plan - cont with lasix - volume status is improving - pt being transferred to tertiary care center - no need for HD - renal function is improving - brant likely cardiorenal
--- NOTE | 2019-11-13 12:59 | PN ---
Teaching Attending Note Name of Resident: Ynes Conway ATTENDING PHYSICIAN STATEMENT I saw and evaluated the patient. I reviewed the resident's note and discussed the case with the resident. I agree with the resident's findings and plan as documented. SUBJECTIVE: Seen and examined at bedside, feeling better. Hungry and wants to eat. OBJECTIVE: Vital Signs - 24 hr 11/12/19 11/12/19 11/12/19 14:00 19:39 22:00 Temperature 98.4 F 98.2 F Pulse Rate 61 65 Respiratory 22 H 22 H 22 H Rate Blood Pressure 144/65 144/64 O2 Sat by Pulse 94 L Oximetry (%) 11/13/19 11/13/19 11/13/19 02:00 06:00 09:00 Temperature 98.4 F 98.3 F Pulse Rate 60 65 Respiratory 11 18 18 Rate Blood Pressure 129/66 156/78 O2 Sat by Pulse 96 Oximetry (%) 11/13/19 10:07 Temperature 98.4 F Pulse Rate Respiratory Rate Blood Pressure O2 Sat by Pulse Oximetry (%) PE: Constitutional: Yes: Well Nourished, No Distress, Calm Cardiovascular: Yes: WNL, Regular Rate and Rhythm Respiratory: Yes: WNL, Regular, CTA Bilaterally Gastrointestinal: Yes: WNL, Normal Bowel Sounds, Soft, Abdomen, Obese Musculoskeletal: Yes: WNL Extremities: Yes: WNL Edema: Yes Edema: LLE: Trace, RLE: Trace Neurological: Yes: WNL, Alert, Oriented x3 Current Medications Artificial Tears (Artificial Tears) 1 drop OU BID PRN PRN Reason: DRY EYES Chlorhexidine Gluconate (Hibiclens For Decolonization -) 1 applic TP HS [facility] Last Admin: 11/12/19 21:45 Dose: 1 applic Furosemide (Lasix Injection -) 40 mg IVPUSH BID@0600,1400 [facility] Last Admin: 11/13/19 05:55 Dose: 40 mg Hydralazine HCl (Apresoline -) 10 mg PO BID [facility] Ceftriaxone Sodium 1 gm/ (Dextrose) 50 mls @ 200 mls/hr IVPB DAILY [facility]; Protocol Last Admin: 11/13/19 10:02 Dose: 200 mls/hr Isosorbide Mononitrate (Imdur -) 30 mg PO DAILY [facility] Last Admin: 11/13/19 12:44 Dose: 30 mg Metoprolol Tartrate (Lopressor -) 25 mg PO BID [facility] Last Admin: 11/13/19 10:01 Dose: 25 mg Mupirocin (Bactroban Ointment (For Decolonization) -) 1 applic NS BID [facility] Stop: 11/14/19 21:59 Last Admin: 11/13/19 12:43 Dose: Not Given Oxycodone HCl (Roxicodone -) 5 mg PO Q4H PRN PRN Reason: PAIN LEVEL 1-5 Last Admin: 11/13/19 10:01 Dose: 5 mg Pantoprazole Sodium (Protonix -) 40 mg PO DAILY [facility] Last Admin: 11/13/19 10:00 Dose: 40 mg Laboratory Results - last 24 hr 11/12/19 11/12/19 11/12/19 13:53 17:32 21:38 WBC RBC Hgb Hct MCV MCH MCHC RDW Plt Count MPV Absolute Neuts (auto) Neutrophils % Lymphocytes % Monocytes % Eosinophils % Basophils % Nucleated RBC % Sodium Potassium Chloride Carbon Dioxide Anion Gap BUN Creatinine Est GFR (CKD-EPI)AfAm Est GFR (CKD-EPI)NonAf POC Glucometer 189 115 142 Random Glucose Calcium Phosphorus Magnesium Total Bilirubin AST ALT Alkaline Phosphatase Total Protein Albumin 11/13/19 11/13/19 11/13/19 05:27 05:27 06:23 WBC 8.5 RBC 3.44 L Hgb 9.9 L Hct 30.1 L MCV 87.5 MCH 28.8 MCHC 32.9 RDW 16.6 H Plt Count 175 MPV 9.8 Absolute Neuts (auto) 6.8 Neutrophils % 80.0 Lymphocytes % 5.8 L Monocytes % 11.4 H Eosinophils % 1.6 D Basophils % 1.2 Nucleated RBC % 0 Sodium 142 Potassium 4.1 Chloride 108 H Carbon Dioxide 30 Anion Gap 5 L BUN 69.1 H Creatinine 1.8 H Est GFR (CKD-EPI)AfAm 42.93 Est GFR (CKD-EPI)NonAf 37.04 POC Glucometer 117 Random Glucose 113 H Calcium 8.8 Phosphorus 2.7 Magnesium 1.8 Total Bilirubin 0.5 AST 9 L ALT 17 Alkaline Phosphatase 88 Total Protein 6.2 L Albumin 3.1 L Microbiology 11/09/19 00:30 Blood - Peripheral Venous Blood Culture - Preliminary NO GROWTH OBTAINED AFTER 72 HOURS, INCUBATION TO CONTINUE FOR 2 DAYS. 11/09/19 20:10 Blood - Peripheral Venous Blood Culture - Preliminary NO GROWTH OBTAINED AFTER 72 HOURS, INCUBATION TO CONTINUE FOR 2 DAYS. Assessment: Uremic encephalopathy BRANT Hyperkalemia Metabolic Acidosis [place] ischemia Ischemic CMP COPD on home 02 CAD s/p CABG CKD DM2 CVA CHF Valvular heart disease sp PPM HTN HLD Plan: plan to transfer for EGD at [facility], high risk patient mental status back to baseline kidney function improving cw IV lasix stress test noted 2decho report reviewed started back on bb, tolerating holding coumadin PPI IV rocephin for uti, cx neg, treat for 5 days GI/cardio/renal/ICU eval Problem List - Problems (1) BRANT (acute kidney injury) Code(s): N17.9 - ACUTE KIDNEY FAILURE, UNSPECIFIED (2) Acute on chronic systolic and diastolic heart failure, NYHA class 2 Code(s): I50.43 - ACUTE ON CHRONIC COMBINED SYSTOLIC AND DIASTOLIC HRT FAIL (3) Acute respiratory failure Code(s): J96.00 - ACUTE RESPIRATORY FAILURE, UNSP W HYPOXIA OR HYPERCAPNIA (4) CAD (coronary artery disease) Code(s): I25.10 - ATHSCL HEART DISEASE OF [place] CORONARY ARTERY W/O ANG PCTRS Qualifiers: [place] vs. transplanted heart: [place] heart Associated angina: without angina (5) CKD (chronic kidney disease) Code(s): N18.9 - CHRONIC KIDNEY DISEASE, UNSPECIFIED Qualifiers: Chronic kidney disease stage: stage 2 (mild) Qualified Code(s): N18.2 - Chronic kidney disease, stage 2 (mild) (6) COPD (chronic obstructive pulmonary disease) Code(s): J44.9 - CHRONIC OBSTRUCTIVE PULMONARY DISEASE, UNSPECIFIED (7) Cardiomyopathy Code(s): I42.9 - CARDIOMYOPATHY, UNSPECIFIED (8) Diabetes mellitus Code(s): E11.9 - TYPE 2 DIABETES MELLITUS WITHOUT COMPLICATIONS Qualifiers: Diabetes mellitus type: type 2 Diabetes mellitus superintendent terminal insulin use: with intermediate use Diabetes mellitus complication status: with circulatory complication Diabetes mellitus complication detail: with peripheral angiopathy with gangrene Qualified Code(s): E11.52 - Type 2 diabetes mellitus with diabetic peripheral angiopathy with gangrene (9) History of CVA (cerebrovascular accident) Code(s): Z86.73 - PRSNL HX OF TIA (TIA), AND CEREB INFRC W/O RESID DEFICITS (10) History of [place] (myocardial infarction) Code(s): I25.2 - OLD MYOCARDIAL INFARCTION (11) Hyperkalemia Code(s): E87.5 - HYPERKALEMIA (12) Hyperlipidemia Code(s): E78.5 - HYPERLIPIDEMIA, UNSPECIFIED (13) Hypertension Code(s): I10 - ESSENTIAL (PRIMARY) HYPERTENSION Qualifiers: Hypertension type: essential hypertension Qualified Code(s): I10 - Essential (primary) hypertension (14) Uremic encephalopathy Code(s): G93.41 - METABOLIC ENCEPHALOPATHY; N19 - UNSPECIFIED KIDNEY FAILURE
[2019-11-13 14:08] VITALS: BP 141/68
[2019-11-13 14:27] VITALS: TEMP 97.8
--- NOTE | 2019-11-13 15:14 | DS ---
Physical Exam: SUBJECTIVE: Patient seen and examined. No acute events overnight. Offers no new complaints. OBJECTIVE: Vital Signs Period Temp Pulse Resp BP Sys/Chandra Pulse Ox Last 24 Hr 97.8 F-98.4 F 60-65 11-158 129-160/64-78 94-96 PHYSICAL EXAM GENERAL: in nad, comfortable in bed EYES: PERRL, conjunctiva clear. No ptosis. ENT: dry mucous membranes. NECK: supple. LUNGS: scattered course rhonchi HEART: RRR ABDOMEN: Soft, nontender, nondistended, normoactive bowel sounds EXTREMITIES: 2+ pulses, trace edema LABS Laboratory Results - last 24 hr 11/12/19 11/12/19 11/13/19 17:32 21:38 05:27 WBC RBC Hgb Hct MCV MCH MCHC RDW Plt Count MPV Absolute Neuts (auto) Neutrophils % Lymphocytes % Monocytes % Eosinophils % Basophils % Nucleated RBC % Sodium 142 Potassium 4.1 Chloride 108 H Carbon Dioxide 30 Anion Gap 5 L BUN 69.1 H Creatinine 1.8 H Est GFR (CKD-EPI)AfAm 42.93 Est GFR (CKD-EPI)NonAf 37.04 POC Glucometer 115 142 Random Glucose 113 H Calcium 8.8 Phosphorus 2.7 Magnesium 1.8 Total Bilirubin 0.5 AST 9 L ALT 17 Alkaline Phosphatase 88 Total Protein 6.2 L Albumin 3.1 L 11/13/19 11/13/19 05:27 06:23 WBC 8.5 RBC 3.44 L Hgb 9.9 L Hct 30.1 L MCV 87.5 MCH 28.8 MCHC 32.9 RDW 16.6 H Plt Count 175 MPV 9.8 Absolute Neuts (auto) 6.8 Neutrophils % 80.0 Lymphocytes % 5.8 L Monocytes % 11.4 H Eosinophils % 1.6 D Basophils % 1.2 Nucleated RBC % 0 Sodium Potassium Chloride Carbon Dioxide Anion Gap BUN Creatinine Est GFR (CKD-EPI)AfAm Est GFR (CKD-EPI)NonAf POC Glucometer 117 Random Glucose Calcium Phosphorus Magnesium Total Bilirubin AST ALT Alkaline Phosphatase Total Protein Albumin HOSPITAL COURSE: Date of Admission:11/09/19 #ARF #Uremic encephalopathy #Cardiorenal Syndrome #Resolved Septic Shock #CHF #HTN #CAD #Dyslipidemia #S/P CABG #PPM #Volume Overload #R/O GI Bleed #Atrial Fibrillation -Nuclear stress noted. Fixed defect involving distal anterior wall, apex. Severely reduced EF 31%. -renal function continuing to improve. Cr 1.8 from 2.3 -follow nephrology rccs -strict i/o's. put out 2 L yesterday. now 77.7kg from 81.3 -Day 5 IV abx: Ceftriaxone per ID -cont Lasix 40mg IV BID -cont protonix 40mg PO daily +FOBT -H&H stable -monitor CBC -ASA, heparin held since being discharged from [facility] -Patient considered high risk for endoscopic procedure by cardio and anesthesia , but will need further endoscopic evaluation to determine cause of bleed since it is important for patient to be restarted on AC/antiplatelet agent. -GI discussed with and patient the possibility of being transferred to [facility] for further endoscopic evaluation. Both of them in agreement. -Patient accepted to [facility] for transfer. Date of Discharge: 11/13/19 Minutes to complete discharge: 35 Discharge Summary Problems reviewed: Yes Reason For Visit: ACUTE RENAL FAILURE, ELEVATED TROPONIN LEVEL Current Active Problems Melena (Acute) Condition: Guarded - Instructions Referrals: Vin Isbell MD [Primary Care Provider] - - Home Medications Comprehensive Discharge Medication List: Ambulatory Orders Ferrous Sulfate [Feosol] 325 mg PO DAILY 04/15/19 Fluticasone Propionate 16 gm NS DAILY 04/15/19 Folic Acid - 1 mg PO DAILY 04/15/19 Insulin (LOG) Aspart [NovoLOG -] 0 units SQ ASDIR 04/15/19 Lansoprazole [Prevacid -] 30 mg PO DAILY 04/15/19 Oxycodone HCl 10 mg PO Q4H 04/15/19 Potassium Chloride [K-Dur -] 20 meq PO DAILY 04/15/19 Pregabalin [Lyrica -] 75 mg PO TID 04/15/19 Rosuvastatin [Crestor -] 20 mg PO DAILY 04/15/19 Tamsulosin HCl [Flomax -] 0.4 mg PO DAILY 04/15/19 Warfarin Na [Coumadin -] 5 mg PO DAILY@1800 04/15/19 Aspirin [ASA -] 81 mg PO DAILY #30 tab.chew 04/18/19 Furosemide [Lasix -] 80 mg PO BID@0600,1400 #60 tablet 04/18/19 Isosorbide Mononitrate [Imdur -] 30 mg PO DAILY #30 tab.sr.24h 04/18/19 Metoprolol Succinate [Toprol XL -] 25 mg PO BID #60 tab.sr.24h 04/18/19 Rosuvastatin [Crestor -] 20 mg PO HS #30 tablet 04/18/19 hydrALAZINE HCL [Apresoline -] 10 mg PO BID #60 tablet 04/18/19 Lisinopril [Zestril] 2.5 mg PO DAILY 11/09/19 Morphine Sulfate 30 mg PO BID 11/09/19 Oxycodone HCl 20 mg PO Q4H PRN 11/09/19 Pantoprazole Sodium 40 mg PO DAILY 11/09/19 This patient is new to me today: Yes Date on this admission: 11/13/19 Emergency Visit: Yes ED Registration Date: 11/09/19 Care time: The patient presented to the Emergency Department on the above date and was hospitalized for further evaluation of their emergent condition. Critical Care patient: No - Discharge Referral Referred to [facility] Med P.C.: No ATTENDING PHYSICIAN STATEMENT I saw and evaluated the patient. I reviewed the resident's note and discussed the case with the resident. I agree with the resident's findings and plan as documented. SUBJECTIVE: OBJECTIVE: ASSESSMENT AND PLAN:
== END 2019-11-13 16:15 | disposition home or self-care (01) | DRG 871 ==
LOC: JER 12:51 → SUPCPDRO 12:51 → JERBED 16:23 → JICU 18:20 → J2W 11-11 14:44
PROVIDERS: ADMIT Internal Medicine; ATTEND Internal Medicine
PROC: 06HM33Z Insertion of Infusion Device into Right Femoral Vein, Percutaneous Approach (ICD-10-PCS; principal; 2019-11-09)
PROC: B54BZZA Ultrasonography of Right Lower Extremity Veins, Guidance (ICD-10-PCS; 2019-11-09)
DX: A41.9 Sepsis, unspecified organism (principal); J96.00 Acute respiratory failure, unspecified whether with hypoxia or hypercapnia; G92 Toxic encephalopathy; I50.43 Acute on chronic combined systolic (congestive) and diastolic (congestive) heart failure; R65.21 Severe sepsis with septic shock; I13.0 Hypertensive heart and chronic kidney disease with heart failure and stage 1 through stage 4 chronic kidney disease, or unspecified chronic kidney disease; N17.9 Acute kidney failure, unspecified; E87.2 Acidosis; I42.9 Cardiomyopathy, unspecified; I24.8 Other forms of acute ischemic heart disease; N39.0 Urinary tract infection, site not specified; K92.1 Melena; J44.9 Chronic obstructive pulmonary disease, unspecified; I25.10 Atherosclerotic heart disease of native coronary artery without angina pectoris; E11.22 Type 2 diabetes mellitus with diabetic chronic kidney disease; Z99.81 Dependence on supplemental oxygen; E78.5 Hyperlipidemia, unspecified; Z86.73 Personal history of transient ischemic attack (TIA), and cerebral infarction without residual deficits; E87.5 Hyperkalemia; Z79.4 Long term (current) use of insulin; E66.9 Obesity, unspecified; N18.2 Chronic kidney disease, stage 2 (mild); I25.5 Ischemic cardiomyopathy; I25.2 Old myocardial infarction; Z95.5 Presence of coronary angioplasty implant and graft; Z95.1 Presence of aortocoronary bypass graft; Z95.0 Presence of cardiac pacemaker; Z87.891 Personal history of nicotine dependence; I48.91 Unspecified atrial fibrillation
CPT/HCPCS: 36415; 36600; 71045-TC-FY; 76775-TC; 78452-TC; 80048; 80053; 81003; 82272; 82436; 82550; 82553; 82803; 82962; 83605; 83690; 83735; 83880; 84100; 84133; 84300; 84484; 85025; 85027; 85610; 85730; 86704; 86706; 86707; 86708; 86709; 86803; 86850; 86900; 86901; 87040; 87086; 87340; 93005; 93010; 93017; 93306-TC; 99285-25; A9502; J0131; J2785

== ENCOUNTER 2019-11-21 10:56 | Inpatient (IN) | payer OTHER ==
--- NOTE | 2019-11-21 11:31 | PDOC ---
History of Present Illness - General Chief Complaint: Urinary Problem Stated Complaint: Urinary Problem Time Seen by Provider: 11/21/19 11:08 - History of Present Illness Initial Comments: 11/21/19 11:56 The patient is a 69 year old male with a history of COPD (home O2 7.2L), HTN, HLD, CAD, CHF, CKD, DM, CVA, Renal failure who presents for evaluation of "possible renal failure". The patient reports that he was recently admitted several weeks ago due to renal failure requiring emergent dialysis. He states that he was taken off dialysis after improvement in his symptoms and is no longer on dialysis. He states, however that he has been unable to urinate over the past 2-3 days with associated nausea and lightheadedness prompting his presentation to the ED for further evaluation. He otherwise denies fevers, chills, SOB, chest pain, vomiting, abdominal pain, or changes with bowel movements. Past History - Past Medical History Allergies/Adverse Reactions: Allergies Allergy/AdvReac Type Severity Reaction Status Date / Time No Known Allergies Allergy Verified 11/09/19 13:10 Home Medications: Ambulatory Orders Ferrous Sulfate [Feosol] 325 mg PO DAILY 04/15/19 Fluticasone Propionate 16 gm NS DAILY 04/15/19 Folic Acid - 1 mg PO DAILY 04/15/19 Insulin (LOG) Aspart [NovoLOG -] 0 units SQ ASDIR 04/15/19 Lansoprazole [Prevacid -] 30 mg PO DAILY 04/15/19 Oxycodone HCl 10 mg PO Q4H 04/15/19 Potassium Chloride [K-Dur -] 20 meq PO DAILY 04/15/19 Pregabalin [Lyrica -] 75 mg PO TID 04/15/19 Rosuvastatin [Crestor -] 20 mg PO DAILY 04/15/19 Tamsulosin HCl [Flomax -] 0.4 mg PO DAILY 04/15/19 Warfarin Na [Coumadin -] 5 mg PO DAILY@1800 04/15/19 Aspirin [ASA -] 81 mg PO DAILY #30 tab.chew 04/18/19 Furosemide [Lasix -] 80 mg PO BID@0600,1400 #60 tablet 04/18/19 Isosorbide Mononitrate [Imdur -] 30 mg PO DAILY #30 tab.sr.24h 04/18/19 Metoprolol Succinate [Toprol XL -] 25 mg PO BID #60 tab.sr.24h 04/18/19 Rosuvastatin [Crestor -] 20 mg PO HS #30 tablet 04/18/19 hydrALAZINE HCL [Apresoline -] 10 mg PO BID #60 tablet 04/18/19 Lisinopril [Zestril] 2.5 mg PO DAILY 11/09/19 Morphine Sulfate 30 mg PO BID 11/09/19 Oxycodone HCl 20 mg PO Q4H PRN 11/09/19 Pantoprazole Sodium 40 mg PO DAILY 11/09/19 Anemia: No Asthma: No Cancer: No Cardiac Disorders: Yes (9 stents, SC, CAD, cardiomyopathy) CVA: Yes (stroke x 2) COPD: Yes CHF: No Dementia: No Diabetes: Yes GI Disorders: Yes (colitis, GERD) Disorders: Yes HTN: Yes Hypercholesterolemia: Yes Kidney Stones: Yes Liver Disease: No Seizures: No Thyroid Disease: No - Surgical History Abdominal Surgery: No Appendectomy: No Cardiac Surgery: Yes (stents x 9) Cholecystectomy: No Lung Surgery: No Neurologic Surgery: No Orthopedic Surgery: No - Immunization History Immunization Up to Date: No - Psycho Social/Smoking Cessation Hx Smoking Status: No Smoking History: Never smoked Have you smoked in the past 12 months: No Number of Cigarettes Smoked Daily: 30 If you are a former smoker, when did you quit?: 3 years Cigars Per Day: 0 'Breaking Loose' booklet given: 01/12/17 Hx Alcohol Use: No Drug/Substance Use Hx: No Substance Use Type: None Hx Substance Use Treatment: No Review of Systems - Review of Systems Comments:: 11/21/19 11:59 Constitutional: No fevers, chills, fatigue, malaise HEENT: No Rhinorrhea, nasal congestion, visual changes Cardiovascular: No chest pain, syncope, palpitations, Respiratory: No Cough, SOB, Hemoptysis, Gastrointestinal: Nausea. No Abdominal pain, Vomiting, Constipation, Diarrhea, Melena Genitourinary: Inability to urinate. No Dysuria, Frequency, Urgency, Hesitancy , Hematuria, Flank pain Musculoskeletal: No Myalgia, arthralgia Skin: No rashes, itching, bruising, pallor Neurologic: No Headache, Dizziness, Numbness, Weakness, or Tingling Psychiatric: No Hallucinations. No SI or HI *Physical Exam - Vital Signs Last Vital Signs Temp Pulse Resp BP Pulse Ox 98.8 F 81 19 111/61 95 11/21/19 11:05 11/21/19 11:05 11/21/19 11:05 11/21/19 11:05 11/21/19 11:05 - Physical Exam 11/21/19 12:14 General Appearance: Nourished. No Apparent Distress HEENT: No Pharyngeal Erythema, Tonsillar Exudate, Tonsillar Erythema Neck: No Cervical Lymphadenopathy Respiratory/Chest: Normal Breath Sounds. Basilar rales noted on exam. No Crackles, Rhonchi, Wheezing Cardiovascular: Regular Rhythm, Regular Rate. No Murmur, Gallops, Rubs Gastrointestinal/Abdominal: Normal Bowel Sounds, Soft. Distended Abdomen. No Guarding, Rebound, Tenderness Musculoskeletal: No CVA Tenderness Extremity: Normal Capillary Refill Integumentary: Normal Color, Dry, Warm Neurologic: Fully Oriented, Alert, Normal Mood/Affect, Normal Response, Tremor noted on exam. Heart Score/ECG Review #1 ECG reviewed & interpreted by me at: 12:34 11/21/19 12:34 HR 71 RI 296 QRS 148 QTc 458 Sinus Rhythm with 1st degree AV block Left axis deviation RBBB New T wave inversions in leads V1-V4 when compared to prior ED Treatment Course - LABORATORY CBC & Chemistry Diagram: 11/21/19 11:55 11/21/19 11:55 Medical Decision Making - Medical Decision Making 11/21/19 12:15 The patient is a 69 year old male with a history of COPD (home O2 7.2L), HTN, HLD, CAD, CHF, CKD, DM, CVA, Renal failure who presents for evaluation of "possible renal failure". Given the patient's history and physical exam, we will obtain a cbc, cmp, troponin, bnp, coags, ekg, chest plain film, UA, urine culture, to evaluate further. We will place a steinberg catheter and continue to monitor and reassess while here in the ED. 11/21/19 16:02 CBC, UA were unremarkable. CMP demonstrated a potassium of 5.9, creatinine of 6.9, bun of 115, bnp of >80741 as well consistent with acute renal failure. Chest plain film did not demonstrate any acute pathology. We discussed the case with Dr. New with Renal who recommended treatment with 80mg of lasix. The patient will require admission for further monitoring and management for uremia and acute on chronic renal failure. Discharge - Discharge Information Problems reviewed: Yes Clinical Impression/Diagnosis: Hyperkalemia, Uremia Renal failure (ARF), acute on chronic Qualifiers: Acute renal failure type: unspecified Chronic kidney disease stage: unspecified stage Qualified Code(s): N17.9 - Acute kidney failure, unspecified Condition: Stable - Admission Yes - Follow up/Referral - Patient Discharge Instructions - Post Discharge Activity
[2019-11-21 12:13] LABS: BASO % 0.5 % (0-2.0); EOS % 0.2 % (0-4.5); HEMATOCRIT 29.1 % (35.4-49); HEMOGLOBIN 9.1 GM/dL (11.7-16.9); LYMPH % 3.2 % (8-40); MCHC 31.4 g/dl (32.0-35.9); MEAN PLT VOLUME 9.4 fl (7.5-11.1); MONO % 12.2 % (3.8-10.2); NEUT % 83.9 % (42.8-82.8); PLATELET COUNT 194 K/MM3 (134-434); RBC 3.27 M/mm3 (4.00-5.60); RDW 16.8 % (11.9-15.9)
[2019-11-21 12:34] LABS: EPI CELLS 0.7 /HPF (0-5/HPF); HYALINE CASTS 6 /lpf (0-8); URINE APPEARANCE CLOUDY; URINE BACTERIA 47.3 /hpf (NEGATIVE); URINE BILIRUBIN NEGATIVE (NEGATIVE); URINE COLOR YELLOW; URINE GLUCOSE (UA) NEGATIVE (NEGATIVE); URINE KETONE NEGATIVE (NEGATIVE); URINE LEUK ESTERASE TRACE (NEGATIVE); URINE NITRITE NEGATIVE (NEGATIVE); URINE PROTEIN TRACE (NEGATIVE); URINE UROBILINOGEN 0.2 mg/dL (0.2-1.0); URINE WBC 2 /hpf (0-5)
[2019-11-21 12:40] LABS: INR 1.11 (0.83-1.09); PROTHROMBIN TIME (PATIENT) 13.1 SEC (9.7-13.0)
[2019-11-21 12:43] LABS: ACTIVATED PTT 30.5 SECONDS (25.2-36.5)
[2019-11-21 12:47] LABS: BILIRUBIN,TOTAL 0.3 mg/dL (0.2-1); CALCIUM 7.8 mg/dL (8.5-10.1); CREATININE 6.9 mg/dL (0.55-1.3); POTASSIUM 5.9 mmol/L (3.5-5.1); TOT PROT 6.1 g/dl (6.4-8.2)
[2019-11-21 12:51] LABS: BLOOD UREA NITROGEN 115.3 mg/dL (7-18)
[2019-11-21] MEDS ORDERED: FUROSEMIDE 40 MG/4 ML INJECTABLE VIAL IVPUSH ONE (13:19)
--- NOTE | 2019-11-21 13:23 | PDOC ---
Documentation entered by Rupa Rodriguez SCRIBE, acting as scribe for Zachariah Byrnes MD. Zachariah Byrnes MD: This documentation has been prepared by the Jennifer jones Brenda, SCRIBE, under my direction and personally reviewed by me in its entirety. I confirm that the documentation accurately reflects all work, treatment, procedures, and medical decision making performed by me. Attending Attestation - Resident Resident Name: Saroj Fleming - ED Attending Attestation I have performed the following: I have examined & evaluated the patient, The case was reviewed & discussed with the resident, I agree w/resident's findings & plan, Exceptions are as noted - HPI HPI: 11/21/19 12:32 The patient is a 69 year old male with a significant PMH of COPD(on home O2 7.2L ), HTN, HLD, CAD, CHF, CKD, DM, CVA who presents to the ED for "possible renal failure", stating that he has not been able to urinate for 2-3 days. He notes that he has not felt an urge to urinate at all. Pt also reports nausea and feeling lightheaded. Patient was recently admitted for acute renal failure and required emergent HD. However, pt's renal function improved, and pt did not require additional HD. The patient denies chest pain, shortness of breath, headache and dizziness. Denies fever, chills, nausea, vomitting, diarhea and constipation. Denies dysuria, hematuria, frequency and urgency. Allergies: NKA - Physicial Exam PE: 11/21/19 13:04 "GENERAL: Awake, alert, and fully oriented, in no acute distress. HEAD: No signs of trauma EYES: PERRLA, EOMI, sclera anicteric, conjunctiva clear ENT: Auricles normal inspection, hearing grossly normal, nares patent, oropharynx clear without exudates. Moist mucosa NECK: Nontender, no stepoffs, Normal ROM, supple, no lymphadenopathy, JVD, or masses LUNGS: Breath sounds equal, clear to auscultation bilaterally. No wheezes, and no crackles HEART: Regular rate and rhythm, normal S1 and S2, no murmurs, rubs or gallops ABDOMEN: Soft, nontender, normoactive bowel sounds. No guarding, no rebound. No masses EXTREMITIES: Normal range of motion, no edema. No clubbing or cyanosis. No cords, erythema, or tenderness NEUROLOGICAL: Cranial nerves II through XII intact. 5/5 strength and sensation in all extremities, Normal speech, normal gait, normal cerebellar function SKIN: Warm, Dry, normal turgor, no rashes or lesions noted. - Medical Decision Making 11/21/19 13:04 69 M with anuria, possibly 2/2 renal failure. Bedside US shows approx 400cc urine. - Labs - Dupree catheter - Gentle IVF bolus 11/21/19 13:23 Cr 6.9, K 5.[address] Cobian, who recommends IV lasix. No need for emergent HD at this time
[2019-11-21] MEDS ORDERED: FUROSEMIDE 40 MG/4 ML INJECTABLE VIAL ONE (13:27)
[2019-11-21] MEDS ORDERED: ACETAMINOPHEN 1000 MG/100 ML VIAL (NON FORMULARY) IVPB ONE (13:51)
[2019-11-21 14:51] LABS: ANISOCYTOSIS 1+; MACROCYTOSIS 0; PLATELET ESTIMATE NORMAL
--- NOTE | 2019-11-21 14:59 | HP ---
CHIEF COMPLAINT: PCP: HISTORY OF PRESENT ILLNESS: ER course was notable for: (1) (2) (3) Recent Travel: PAST MEDICAL HISTORY: PAST SURGICAL HISTORY: Social History: Smoking: Alcohol: Drugs: Allergies No Known Allergies Allergy (Verified 11/09/19 13:10) HOME MEDICATIONS: Home Medications Medication Instructions Recorded Ferrous Sulfate [Feosol] 325 mg PO DAILY 04/15/19 Fluticasone Propionate 16 gm NS DAILY 04/15/19 Folic Acid - 1 mg PO DAILY 04/15/19 Insulin (LOG) Aspart [NovoLOG -] 0 units SQ ASDIR 04/15/19 Lansoprazole [Prevacid -] 30 mg PO DAILY 04/15/19 Oxycodone HCl 10 mg PO Q4H 04/15/19 Potassium Chloride [K-Dur -] 20 meq PO DAILY 04/15/19 Pregabalin [Lyrica -] 75 mg PO TID 04/15/19 Rosuvastatin [Crestor -] 20 mg PO DAILY 04/15/19 Tamsulosin HCl [Flomax -] 0.4 mg PO DAILY 04/15/19 Warfarin Na [Coumadin -] 5 mg PO DAILY@1800 04/15/19 Aspirin [ASA -] 81 mg PO DAILY #30 tab.chew 04/18/19 Furosemide [Lasix -] 80 mg PO BID@0600,1400 #60 tablet 04/18/19 Isosorbide Mononitrate [Imdur -] 30 mg PO DAILY #30 tab.sr.24h 04/18/19 Metoprolol Succinate [Toprol XL -] 25 mg PO BID #60 tab.sr.24h 04/18/19 Rosuvastatin [Crestor -] 20 mg PO HS #30 tablet 04/18/19 hydrALAZINE HCL [Apresoline -] 10 mg PO BID #60 tablet 04/18/19 Lisinopril [Zestril] 2.5 mg PO DAILY 11/09/19 Morphine Sulfate 30 mg PO BID 11/09/19 Oxycodone HCl 20 mg PO Q4H PRN 11/09/19 Pantoprazole Sodium 40 mg PO DAILY 11/09/19 REVIEW OF SYSTEMS CONSTITUTIONAL: Absent: fever, chills, diaphoresis, generalized weakness, malaise, loss of appetite, weight change HEENT: Absent: rhinorrhea, nasal congestion, throat pain, throat swelling, difficulty swallowing, mouth swelling, ear pain, eye pain, visual changes CARDIOVASCULAR: Absent: chest pain, syncope, palpitations, irregular heart rate, lightheadedness , peripheral edema RESPIRATORY: Absent: cough, shortness of breath, dyspnea with exertion, orthopnea, wheezing, stridor, hemoptysis GASTROINTESTINAL: Absent: abdominal pain, abdominal distension, nausea, vomiting, diarrhea, constipation, melena, hematochezia GENITOURINARY: Absent: dysuria, frequency, urgency, hesitancy, hematuria, flank pain, genital pain MUSCULOSKELETAL: Absent: myalgia, arthralgia, joint swelling, back pain, neck pain SKIN: Absent: rash, itching, pallor HEMATOLOGIC/IMMUNOLOGIC: Absent: easy bleeding, easy bruising, lymphadenopathy, frequent infections ENDOCRINE: Absent: unexplained weight gain, unexplained weight loss, heat intolerance, cold intolerance NEUROLOGIC: Absent: headache, focal weakness or paresthesias, dizziness, unsteady gait, seizure, mental status changes, bladder or bowel incontinence PSYCHIATRIC: Absent: anxiety, depression, suicidal or homicidal ideation, hallucinations. PHYSICAL EXAMINATION Vital Signs - 24 hr 11/21/19 11:05 Temperature 98.8 F Pulse Rate 81 Respiratory 19 Rate Blood Pressure 111/61 O2 Sat by Pulse 95 Oximetry (%) GENERAL: Awake, alert, and fully oriented, in no acute distress. HEAD: Normal with no signs of trauma. EYES: Pupils equal, round and reactive to light, extraocular movements intact, sclera anicteric, conjunctiva clear. No lid lag. EARS, NOSE, THROAT: Ears normal, nares patent, oropharynx clear without exudates. Moist mucous membranes. NECK: Normal range of motion, supple without lymphadenopathy, JVD, or masses. LUNGS: Breath sounds equal, clear to auscultation bilaterally. No wheezes, and no crackles. No accessory muscle use. HEART: Regular rate and rhythm, normal S1 and S2 without murmur, rub or gallop. ABDOMEN: Soft, nontender, not distended, normoactive bowel sounds, no guarding, no rebound, no masses. No hepatomegaly or splenomegaly. MUSCULOSKELETAL: Normal range of motion at all joints. No bony deformities or tenderness. No CVA tenderness. UPPER EXTREMITIES: 2+ pulses, warm, well-perfused. No cyanosis. No clubbing. No peripheral edema. LOWER EXTREMITIES: 2+ pulses, warm, well-perfused. No calf tenderness. No peripheral edema. NEUROLOGICAL: Cranial nerves II-XII intact. Normal speech. Normal gait. PSYCHIATRIC: Cooperative. Good eye contact. Appropriate mood and affect. SKIN: Warm, dry, normal turgor, no rashes or lesions noted, normal capillary refill. Laboratory Results - last 24 hr 11/21/19 11/21/19 11/21/19 11:55 11:55 11:55 WBC 13.0 H RBC 3.27 L Hgb 9.1 L Hct 29.1 L MCV 89.0 MCH 28.0 MCHC 31.4 L RDW 16.8 H Plt Count 194 MPV 9.4 Absolute Neuts (auto) 10.9 H Neutrophils % 83.9 H Neutrophils % (Manual) 81.5 Band Neutrophils % 0.0 Lymphocytes % 3.2 L D Lymphocytes % (Manual) 4.1 L D Monocytes % 12.2 H Monocytes % (Manual) 12 H Eosinophils % 0.2 D Eosinophils % (Manual) 0.0 Basophils % 0.5 Basophils % (Manual) 0.0 Myelocytes % (Man) 0 D Promyelocytes % (Man) 0 Blast Cells % (Manual) 0 Nucleated RBC % 0 Metamyelocytes 1 Hypochromia 0 Platelet Estimate Normal Polychromasia 0 Poikilocytosis 1+ Anisocytosis 1+ Microcytosis 1+ Macrocytosis 0 PT with INR 13.10 H INR 1.11 H PTT (Actin FS) 30.5 Sodium 133 L Potassium 5.9 H Chloride 99 Carbon Dioxide 21 Anion Gap 13 BUN 115.3 H* Creatinine 6.9 H Est GFR (CKD-EPI)AfAm 8.46 Est GFR (CKD-EPI)NonAf 7.30 Random Glucose 84 Calcium 7.8 L Total Bilirubin 0.3 AST 13 L ALT 17 Alkaline Phosphatase 90 Creatine Kinase 77 Troponin I 0.02 B-Natriuretic Peptide Total Protein 6.1 L Albumin 3.0 L Urine Color Urine Appearance Urine pH Ur Specific Fountain Urine Protein Urine Glucose (UA) Urine Ketones Urine Blood Urine Nitrite Urine Bilirubin Urine Urobilinogen Ur Leukocyte Esterase Urine WBC (Auto) Urine Casts (Auto) U Epithel Cells (Auto) Urine Bacteria (Auto) 11/21/19 11/21/19 11:55 12:05 WBC RBC Hgb Hct MCV MCH MCHC RDW Plt Count MPV Absolute Neuts (auto) Neutrophils % Neutrophils % (Manual) Band Neutrophils % Lymphocytes % Lymphocytes % (Manual) Monocytes % Monocytes % (Manual) Eosinophils % Eosinophils % (Manual) Basophils % Basophils % (Manual) Myelocytes % (Man) Promyelocytes % (Man) Blast Cells % (Manual) Nucleated RBC % Metamyelocytes Hypochromia Platelet Estimate Polychromasia Poikilocytosis Anisocytosis Microcytosis Macrocytosis PT with INR INR PTT (Actin FS) Sodium Potassium Chloride Carbon Dioxide Anion Gap BUN Creatinine Est GFR (CKD-EPI)AfAm Est GFR (CKD-EPI)NonAf Random Glucose Calcium Total Bilirubin AST ALT Alkaline Phosphatase Creatine Kinase Troponin I B-Natriuretic Peptide > 12371.0 H Total Protein Albumin Urine Color Yellow Urine Appearance Cloudy Urine pH 5.0 Ur Specific Fountain 1.017 Urine Protein Trace Urine Glucose (UA) Negative Urine Ketones Negative Urine Blood 3+ H Urine Nitrite Negative Urine Bilirubin Negative Urine Urobilinogen 0.2 Ur Leukocyte Esterase Trace Urine WBC (Auto) 2 Urine Casts (Auto) 6 U Epithel Cells (Auto) 0.7 Urine Bacteria (Auto) 47.3 ASSESSMENT/PLAN: ATTENDING PHYSICIAN STATEMENT I saw and evaluated the patient. I reviewed the resident's note and discussed the case with the resident. I agree with the resident's findings and plan as documented. SUBJECTIVE: OBJECTIVE: ASSESSMENT AND PLAN:
[2019-11-21] MEDS ORDERED: CALCIUM CHLORIDE 1 GM/10 ML *DISP.SYRIN IVPUSH ONE (15:07)
[2019-11-21] MEDS ORDERED: SODIUM ZIRCONIUM CYCLOSILICATE (LOKELMA) 5 GM PACKET PO ONE (15:07)
[2019-11-21] MEDS ORDERED: DEXTROSE 50%-WATER - 25 GM/50 ML VIAL IVPUSH ONE (15:07)
[2019-11-21] MEDS ORDERED: INSULIN REGULAR HUMAN 100 UNITS/ML *VIAL IVPUSH ONE (15:07)
[2019-11-21] MEDS ORDERED: DEXTROSE 50%-WATER 25 GM/50 ML DISP.SYRIN ONE (15:22)
--- NOTE | 2019-11-21 15:23 | HP ---
CHIEF COMPLAINT: "kidney failure" PCP: Dr. Isbell HISTORY OF PRESENT ILLNESS: 69 year old m with Pmhx of COPD on home 02, CAD s/p CABG, CKD, DM2, CVA, s/p PPM , 1st deg av block, cardiorenal, recently admitted for ARF, Uremic encephalopathy (requiring emergent dialysis), was told by his to go to the ER because he was weak and has not urinated in 3 days. He also says he had nausea, dizziness. Patient denies sob, chest pain, fevers, chills, nausea, vomiting,melena. He recently admitted at [facility] for ARF and required 1x HD. Patient's kidney function improved without further dialysis. His cr on discharge was 1.8. Today he presented with Cr 5.9. Last admission, patient had melena but we transferred him [facility] for further endoscopic evaluation. Patient was high risk to do the procedure here because of a Nuclear stress that showed fixed defect involving distal anterior wall, apex. Severely reduced EF 31%. Patient says [facility] "didn't do anything" and sent him home. In the ER he was found hyperkalemic (5.9), in kidney failure. BNP >36595. 1x Lasix 80mg given in ED. Dupree was placed with immediate output around 500cc. Recent Travel: denies PAST MEDICAL HISTORY: per HPI PAST SURGICAL HISTORY: CABG, s/p PPM Social History: Smoking: former smoker Alcohol: denies. quit 3 years ago Drugs: denies Allergies No Known Allergies Allergy (Verified 11/09/19 13:10) HOME MEDICATIONS: Home Medications Medication Instructions Recorded Ferrous Sulfate [Feosol] 325 mg PO DAILY 04/15/19 Fluticasone Propionate 16 gm NS DAILY 04/15/19 Folic Acid - 1 mg PO DAILY 04/15/19 Insulin (LOG) Aspart [NovoLOG -] 0 units SQ ASDIR 04/15/19 Lansoprazole [Prevacid -] 30 mg PO DAILY 04/15/19 Oxycodone HCl 10 mg PO Q4H 04/15/19 Potassium Chloride [K-Dur -] 20 meq PO DAILY 04/15/19 Pregabalin [Lyrica -] 75 mg PO TID 04/15/19 Rosuvastatin [Crestor -] 20 mg PO DAILY 04/15/19 Tamsulosin HCl [Flomax -] 0.4 mg PO DAILY 04/15/19 Warfarin Na [Coumadin -] 5 mg PO DAILY@1800 04/15/19 Aspirin [ASA -] 81 mg PO DAILY #30 tab.chew 04/18/19 Furosemide [Lasix -] 80 mg PO BID@0600,1400 #60 tablet 04/18/19 Isosorbide Mononitrate [Imdur -] 30 mg PO DAILY #30 tab.sr.24h 04/18/19 Metoprolol Succinate [Toprol XL -] 25 mg PO BID #60 tab.sr.24h 04/18/19 Rosuvastatin [Crestor -] 20 mg PO HS #30 tablet 04/18/19 hydrALAZINE HCL [Apresoline -] 10 mg PO BID #60 tablet 04/18/19 Lisinopril [Zestril] 2.5 mg PO DAILY 11/09/19 Morphine Sulfate 30 mg PO BID 11/09/19 Oxycodone HCl 20 mg PO Q4H PRN 11/09/19 Pantoprazole Sodium 40 mg PO DAILY 11/09/19 REVIEW OF SYSTEMS per HPI PHYSICAL EXAMINATION Vital Signs - 24 hr 11/21/19 11:05 Temperature 98.8 F Pulse Rate 81 Respiratory 19 Rate Blood Pressure 111/61 O2 Sat by Pulse 95 Oximetry (%) GENERAL: in nad, comfortable in bed EYES: PERRL, conjunctiva clear. No ptosis. ENT: dry mucous membranes. Chest: vertical scar from CABG NECK: supple. LUNGS: bibasilar crackles HEART: RRR ABDOMEN: Soft, nontender, nondistended, normoactive bowel sounds EXTREMITIES: 2+ pulses, +trace edema LLE, LLE swelling>RLE. tenderness to palpation on LLE ni. Laboratory Results - last 24 hr 11/21/19 11/21/19 11/21/19 11:55 11:55 11:55 WBC 13.0 H RBC 3.27 L Hgb 9.1 L Hct 29.1 L MCV 89.0 MCH 28.0 MCHC 31.4 L RDW 16.8 H Plt Count 194 MPV 9.4 Absolute Neuts (auto) 10.9 H Neutrophils % 83.9 H Neutrophils % (Manual) 81.5 Band Neutrophils % 0.0 Lymphocytes % 3.2 L D Lymphocytes % (Manual) 4.1 L D Monocytes % 12.2 H Monocytes % (Manual) 12 H Eosinophils % 0.2 D Eosinophils % (Manual) 0.0 Basophils % 0.5 Basophils % (Manual) 0.0 Myelocytes % (Man) 0 D Promyelocytes % (Man) 0 Blast Cells % (Manual) 0 Nucleated RBC % 0 Metamyelocytes 1 Hypochromia 0 Platelet Estimate Normal Polychromasia 0 Poikilocytosis 1+ Anisocytosis 1+ Microcytosis 1+ Macrocytosis 0 PT with INR 13.10 H INR 1.11 H PTT (Actin FS) 30.5 Sodium 133 L Potassium 5.9 H Chloride 99 Carbon Dioxide 21 Anion Gap 13 BUN 115.3 H* Creatinine 6.9 H Est GFR (CKD-EPI)AfAm 8.46 Est GFR (CKD-EPI)NonAf 7.30 Random Glucose 84 Calcium 7.8 L Total Bilirubin 0.3 AST 13 L ALT 17 Alkaline Phosphatase 90 Creatine Kinase 77 Troponin I 0.02 B-Natriuretic Peptide Total Protein 6.1 L Albumin 3.0 L Urine Color Urine Appearance Urine pH Ur Specific Rainbow Urine Protein Urine Glucose (UA) Urine Ketones Urine Blood Urine Nitrite Urine Bilirubin Urine Urobilinogen Ur Leukocyte Esterase Urine WBC (Auto) Urine Casts (Auto) U Epithel Cells (Auto) Urine Bacteria (Auto) 11/21/19 11/21/19 11:55 12:05 WBC RBC Hgb Hct MCV MCH MCHC RDW Plt Count MPV Absolute Neuts (auto) Neutrophils % Neutrophils % (Manual) Band Neutrophils % Lymphocytes % Lymphocytes % (Manual) Monocytes % Monocytes % (Manual) Eosinophils % Eosinophils % (Manual) Basophils % Basophils % (Manual) Myelocytes % (Man) Promyelocytes % (Man) Blast Cells % (Manual) Nucleated RBC % Metamyelocytes Hypochromia Platelet Estimate Polychromasia Poikilocytosis Anisocytosis Microcytosis Macrocytosis PT with INR INR PTT (Actin FS) Sodium Potassium Chloride Carbon Dioxide Anion Gap BUN Creatinine Est GFR (CKD-EPI)AfAm Est GFR (CKD-EPI)NonAf Random Glucose Calcium Total Bilirubin AST ALT Alkaline Phosphatase Creatine Kinase Troponin I B-Natriuretic Peptide > 73163.0 H Total Protein Albumin Urine Color Yellow Urine Appearance Cloudy Urine pH 5.0 Ur Specific Rainbow 1.017 Urine Protein Trace Urine Glucose (UA) Negative Urine Ketones Negative Urine Blood 3+ H Urine Nitrite Negative Urine Bilirubin Negative Urine Urobilinogen 0.2 Ur Leukocyte Esterase Trace Urine WBC (Auto) 2 Urine Casts (Auto) 6 U Epithel Cells (Auto) 0.7 Urine Bacteria (Auto) 47.3 ASSESSMENT/PLAN: #ARF #Cardiorenal Syndrome #CHF #HTN #CAD #Dyslipidemia #S/P CABG #PPM #Volume Overload #Atrial Fibrillation Plan: -Give Insulin 10U, Lokelma, d50 amp, duonebs x 3, calcium Gluconate for Hyperkalemia -EKG with new T wave inversions in v1-v4 -Nephro on board. No emergent dialysis at this time. will monitor with diuresis -Dupree -cr 6.9, on discharge 1.8 -strict I/o's, daily weights -Lasix 40mg IV BID -Kidney bladder US -1st trop negative, FU repeat trop -cardio consult -CXR with no acute changes -alcohol level -monitor vital signs -tele monitoring -FU am labs Visit type - Emergency Visit Emergency Visit: Yes ED Registration Date: 11/21/19 Care time: The patient presented to the Emergency Department on the above date and was hospitalized for further evaluation of their emergent condition. - New Patient This patient is new to me today: Yes Date on this admission: 11/25/19 - Critical Care Critical Care patient: No ATTENDING PHYSICIAN STATEMENT I saw and evaluated the patient. I reviewed the resident's note and discussed the case with the resident. I agree with the resident's findings and plan as documented. SUBJECTIVE: OBJECTIVE: ASSESSMENT AND PLAN:
--- NOTE | 2019-11-21 15:30 | CONSULT ---
Consult Consult Specialty:: Nephrology Reason for Consultation:: BRANT - History of Present Illness Chief Complaint: shortness of breath and malaise History of Present Illness: Pt is a 69 year old male with pmhx of copd, htn, cad, chf, ckd, dm and cva who presents with malaise and fatigue. He also complains of shortness of breath and edema. He was hospitalized here on Nov 09 where he was in renal failure. He required a session of HD after which he began to make urine and had improvement of his renal function. His mechanical manager continued to improve and he did respond to lasix. He was transferred to [facility] with a mechanical manager of about 1.8. He required one HD session on last admission. 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: CVA, Peripheral Neuropathy Cardio/Vascular: Yes: CHF, HTN, Hyperlipdemia, Hyperlipdemia, MA Pulmonary: Yes: COPD, O2 Dependent, Pneumonia, Previously Intubated Gastrointestinal: Yes: Other, GERD, Other Renal/: Yes: Renal Inusuff, Other Infectious Disease: Yes: MRSA Psych: Yes: Addictions Musculoskeletal: Yes: Other, Other Endocrine: Yes: Diabetes Mellitus - Past Surgical History Past Surgical History: Yes: CABG (4v), Permanent Pacemaker, Stent (PCIX5) - Alcohol/Substance Use Hx Alcohol Use: No History of Substance Use: reports: None - Smoking History Smoking history: Never smoked Have you smoked in the past 12 months: No Aproximately how many cigarettes per day: 30 If you are a former smoker, when did you quit?: 3 years - Social History Usual Living Arrangement: With Spouse ADL: Family Assistance History of Recent Travel: No Home Medications - Allergies Allergies/Adverse Reactions: Allergies Allergy/AdvReac Type Severity Reaction Status Date / Time No Known Allergies Allergy Verified 11/09/19 13:10 - Home Medications Home Medications: Ambulatory Orders Ferrous Sulfate [Feosol] 325 mg PO DAILY 04/15/19 Fluticasone Propionate 16 gm NS DAILY 04/15/19 Folic Acid - 1 mg PO DAILY 04/15/19 Insulin (LOG) Aspart [NovoLOG -] 0 units SQ ASDIR 04/15/19 Lansoprazole [Prevacid -] 30 mg PO DAILY 04/15/19 Oxycodone HCl 10 mg PO Q4H 04/15/19 Potassium Chloride [K-Dur -] 20 meq PO DAILY 04/15/19 Pregabalin [Lyrica -] 75 mg PO TID 04/15/19 Rosuvastatin [Crestor -] 20 mg PO DAILY 04/15/19 Tamsulosin HCl [Flomax -] 0.4 mg PO DAILY 04/15/19 Warfarin Na [Coumadin -] 5 mg PO DAILY@1800 04/15/19 Aspirin [ASA -] 81 mg PO DAILY #30 tab.chew 04/18/19 Furosemide [Lasix -] 80 mg PO BID@0600,1400 #60 tablet 04/18/19 Isosorbide Mononitrate [Imdur -] 30 mg PO DAILY #30 tab.sr.24h 04/18/19 Metoprolol Succinate [Toprol XL -] 25 mg PO BID #60 tab.sr.24h 04/18/19 Rosuvastatin [Crestor -] 20 mg PO HS #30 tablet 04/18/19 hydrALAZINE HCL [Apresoline -] 10 mg PO BID #60 tablet 04/18/19 Lisinopril [Zestril] 2.5 mg PO DAILY 11/09/19 Morphine Sulfate 30 mg PO BID 11/09/19 Oxycodone HCl 20 mg PO Q4H PRN 11/09/19 Pantoprazole Sodium 40 mg PO DAILY 11/09/19 Family Medical History Family History: Denies Review of Systems - Review of Systems Constitutional: reports: Malaise Eyes: reports: No Symptoms HENT: reports: No Symptoms Neck: reports: No Symptoms Cardiovascular: reports: Edema, Shortness of Breath Respiratory: reports: SOB on Exertion Genitourinary: reports: No Symptoms Musculoskeletal: reports: No Symptoms Integumentary: reports: No Symptoms Neurological: reports: No Symptoms Endocrine: reports: No Symptoms Hematology/Lymphatic: reports: No Symptoms Psychiatric: reports: No Symptoms Physical Exam Vital Signs: Vital Signs Temperature 98.8 F 11/21/19 11:05 Pulse Rate 81 11/21/19 11:05 Respiratory Rate 19 11/21/19 11:05 Blood Pressure 111/61 11/21/19 11:05 O2 Sat by Pulse Oximetry (%) 95 11/21/19 11:05 Constitutional: Yes: Calm Eyes: Yes: Conjunctiva Clear HENT: Yes: Atraumatic Cardiovascular: Yes: S1, S2 Respiratory: Yes: On Nasal O2, Rhonchi Gastrointestinal: Yes: Soft Renal/: Yes: Steinberg Present Musculoskeletal: Yes: Muscle Weakness Edema: Yes Edema: LLE: 1+, RLE: 1+ Neurological: Yes: Oriented Labs: CBC, BMP 11/21/19 11:55 11/21/19 11:55 Laboratory Tests 11/21/19 11/21/19 11:55 12:05 B-Natriuretic Peptide > 09648.0 H Urine Protein Trace Urine Blood 3+ H Urine WBC (Auto) 2 Urine RBC (Auto) 29 Imaging - Results Chest X-ray: Report Reviewed Problem List - Problems (1) Hyperkalemia Code(s): E87.5 - HYPERKALEMIA (2) Renal failure (ARF), acute on chronic Code(s): N17.9 - ACUTE KIDNEY FAILURE, UNSPECIFIED; N18.9 - CHRONIC KIDNEY DISEASE, UNSPECIFIED Qualifiers: Acute renal failure type: unspecified Chronic kidney disease stage: unspecified stage Qualified Code(s): N17.9 - Acute kidney failure, unspecified ; N18.9 - Chronic kidney disease, unspecified (3) Uremia Code(s): N19 - UNSPECIFIED KIDNEY FAILURE (4) BRANT (acute kidney injury) Code(s): N17.9 - ACUTE KIDNEY FAILURE, UNSPECIFIED (5) Abnormal chest x-ray Code(s): R93.8 - ABNORMAL FINDINGS ON DIAGNOSTIC IMAGING OF [place] * DO NOT USE * Assessment/Plan Current Medications Generic Name Dose Route Start Last Admin Trade Name Freq PRN Reason Stop Dose Admin Albuterol/Ipratropium 1 amp 11/21/19 15:15 Duoneb - NEB 11/21/19 16:01 Q15M RADHA Calcium Chloride 1 gm 11/21/19 15:07 Calcium Chloride 10% - IVPUSH 11/21/19 15:08 ONCE ONE Dextrose 25 gm 11/21/19 15:07 D50w (Vial) - IVPUSH 11/21/19 15:08 NOW ONE Furosemide 40 mg 11/21/19 22:00 Lasix Injection - IVPUSH BID RADHA Heparin Sodium (Porcine) 5,000 unit 11/21/19 22:00 Heparin - SQ BID RADHA Insulin Aspart 1 vial 11/21/19 16:30 Novolog Vial Sliding Scale - SQ ACHS RADHA Protocol Insulin Human Regular 10 units 11/21/19 15:07 Novolin R Vial *For Ivpush Or Iv Drip Only* IVPUSH 11/21/19 15:08 ONCE ONE Sodium Zirconium Cyclosilicate 10 gm 11/21/19 15:07 Lokelma PO 11/21/19 15:08 ONCE ONE Impression 1. BRANT 2. hyperkalemia 3. copd 4. chf 5. uremia 6. fluid overload 7. cva Plan - place steinberg - monitor output - potassium treated medically - follow repeat bmp - will order serologic workup - check phos level - will need records from [facility] - check ua, mechanical manager, sodium and urea - pt has severely reduced LV function on last echo - cardio eval - cont lasix - may need HD again if his renal function does not recover
[2019-11-21 15:33] LABS: URINE RBC 29 /hpf (0-4); YEAST NONE SEEN (NEGATIVE)
--- NOTE | 2019-11-21 16:00 | PN ---
Teaching Attending Note Name of Resident: Ynes Conway ATTENDING PHYSICIAN STATEMENT I saw and evaluated the patient. I reviewed the resident's note and discussed the case with the resident. I agree with the resident's findings and plan as documented. 69 M h/o COPD on home 02, CAD s/p CABG (EF 38%), CKD, DM 2, CVA, s/p PPM, 1st deg av block, h/o cardiorenal syndrome, recently admitted for ARF, Uremic encephalopathy (requiring emergent dialysis), was told by his to go to the ER because he has been feeling very weak and has not urinated in 3 days. Patient recently admitted to [facility] for uremic encephalopathy and reported coffee- ground emesis, was transferred to [facility] for evaluation for UGIB, but patient endorses "they didn't do anything". Patient's history not reliable, awaiting collateral from [facility] prior to starting blood thinners. Currently pt. denies CP, has some SOB, appears to be alert and orientated. Will admit for BRANT and CHFE, with possible cardiorenal syndrome. PE GA lying in stretcher, alert and orientated x3, speaking in full sentences HEENT NC/AT, EOMI, no JVD, neck supple, MMM Chest bibasilar crackles++, no significant wheezing, no accessory M use CVS S1, S2+, no audible S3, no m/r/g Abd distended, Soft, NT, no guarding Ext trace LE edema, L>R, moves all 4 extremities Vital Signs - 24 hr 11/21/19 11:05 Temperature 98.8 F Pulse Rate 81 Respiratory 19 Rate Blood Pressure 111/61 O2 Sat by Pulse 95 Oximetry (%) Laboratory Results - last 24 hr 11/21/19 11/21/19 11/21/19 11:55 11:55 11:55 WBC 13.0 H RBC 3.27 L Hgb 9.1 L Hct 29.1 L MCV 89.0 MCH 28.0 MCHC 31.4 L RDW 16.8 H Plt Count 194 MPV 9.4 Absolute Neuts (auto) 10.9 H Neutrophils % 83.9 H Neutrophils % (Manual) 81.5 Band Neutrophils % 0.0 Lymphocytes % 3.2 L D Lymphocytes % (Manual) 4.1 L D Monocytes % 12.2 H Monocytes % (Manual) 12 H Eosinophils % 0.2 D Eosinophils % (Manual) 0.0 Basophils % 0.5 Basophils % (Manual) 0.0 Myelocytes % (Man) 0 D Promyelocytes % (Man) 0 Blast Cells % (Manual) 0 Nucleated RBC % 0 Metamyelocytes 1 Hypochromia 0 Platelet Estimate Normal Polychromasia 0 Poikilocytosis 1+ Anisocytosis 1+ Microcytosis 1+ Macrocytosis 0 PT with INR 13.10 H INR 1.11 H PTT (Actin FS) 30.5 Sodium 133 L Potassium 5.9 H Chloride 99 Carbon Dioxide 21 Anion Gap 13 BUN 115.3 H* Creatinine 6.9 H Est GFR (CKD-EPI)AfAm 8.46 Est GFR (CKD-EPI)NonAf 7.30 Random Glucose 84 Calcium 7.8 L Total Bilirubin 0.3 AST 13 L ALT 17 Alkaline Phosphatase 90 Creatine Kinase 77 Troponin I 0.02 B-Natriuretic Peptide Total Protein 6.1 L Albumin 3.0 L Urine Color Urine Appearance Urine pH Ur Specific Colver Urine Protein Urine Glucose (UA) Urine Ketones Urine Blood Urine Nitrite Urine Bilirubin Urine Urobilinogen Ur Leukocyte Esterase Urine WBC (Auto) Urine RBC (Auto) Urine Casts (Auto) U Epithel Cells (Auto) Urine Bacteria (Auto) Urine Yeast (Auto) 11/21/19 11/21/19 11:55 12:05 WBC RBC Hgb Hct MCV MCH MCHC RDW Plt Count MPV Absolute Neuts (auto) Neutrophils % Neutrophils % (Manual) Band Neutrophils % Lymphocytes % Lymphocytes % (Manual) Monocytes % Monocytes % (Manual) Eosinophils % Eosinophils % (Manual) Basophils % Basophils % (Manual) Myelocytes % (Man) Promyelocytes % (Man) Blast Cells % (Manual) Nucleated RBC % Metamyelocytes Hypochromia Platelet Estimate Polychromasia Poikilocytosis Anisocytosis Microcytosis Macrocytosis PT with INR INR PTT (Actin FS) Sodium Potassium Chloride Carbon Dioxide Anion Gap BUN Creatinine Est GFR (CKD-EPI)AfAm Est GFR (CKD-EPI)NonAf Random Glucose Calcium Total Bilirubin AST ALT Alkaline Phosphatase Creatine Kinase Troponin I B-Natriuretic Peptide > 70776.0 H Total Protein Albumin Urine Color Yellow Urine Appearance Cloudy Urine pH 5.0 Ur Specific Colver 1.017 Urine Protein Trace Urine Glucose (UA) Negative Urine Ketones Negative Urine Blood 3+ H Urine Nitrite Negative Urine Bilirubin Negative Urine Urobilinogen 0.2 Ur Leukocyte Esterase Trace Urine WBC (Auto) 2 Urine RBC (Auto) 29 Urine Casts (Auto) 6 U Epithel Cells (Auto) 0.7 Urine Bacteria (Auto) 47.3 Urine Yeast (Auto) None seen Home Medications Medication Instructions Recorded Ferrous Sulfate [Feosol] 325 mg PO DAILY 04/15/19 Fluticasone Propionate 16 gm NS DAILY 04/15/19 Folic Acid - 1 mg PO DAILY 04/15/19 Insulin (LOG) Aspart [NovoLOG -] 0 units SQ ASDIR 04/15/19 Lansoprazole [Prevacid -] 30 mg PO DAILY 04/15/19 Oxycodone HCl 10 mg PO Q4H 04/15/19 Potassium Chloride [K-Dur -] 20 meq PO DAILY 04/15/19 Pregabalin [Lyrica -] 75 mg PO TID 04/15/19 Rosuvastatin [Crestor -] 20 mg PO DAILY 04/15/19 Tamsulosin HCl [Flomax -] 0.4 mg PO DAILY 04/15/19 Warfarin Na [Coumadin -] 5 mg PO DAILY@1800 04/15/19 Aspirin [ASA -] 81 mg PO DAILY #30 tab.chew 04/18/19 Furosemide [Lasix -] 80 mg PO BID@0600,1400 #60 tablet 04/18/19 Isosorbide Mononitrate [Imdur -] 30 mg PO DAILY #30 tab.sr.24h 04/18/19 Metoprolol Succinate [Toprol XL -] 25 mg PO BID #60 tab.sr.24h 04/18/19 Rosuvastatin [Crestor -] 20 mg PO HS #30 tablet 04/18/19 hydrALAZINE HCL [Apresoline -] 10 mg PO BID #60 tablet 04/18/19 Lisinopril [Zestril] 2.5 mg PO DAILY 11/09/19 Morphine Sulfate 30 mg PO BID 11/09/19 Oxycodone HCl 20 mg PO Q4H PRN 11/09/19 Pantoprazole Sodium 40 mg PO DAILY 11/09/19 Current Medications Generic Name Dose Route Start Last Admin Trade Name Freq PRN Reason Stop Dose Admin Albuterol/Ipratropium 1 amp 11/21/19 15:15 Duoneb - NEB 11/21/19 16:01 Q15M RADHA Calcium Chloride 1 gm 11/21/19 15:07 Calcium Chloride 10% - IVPUSH 11/21/19 15:08 ONCE ONE Dextrose 25 gm 11/21/19 15:07 D50w (Vial) - IVPUSH 11/21/19 15:08 NOW ONE Furosemide 40 mg 11/21/19 22:00 Lasix Injection - IVPUSH BID RADHA Insulin Aspart 1 vial 11/21/19 16:30 Novolog Vial Sliding Scale - SQ ACHS [facility] Protocol Insulin Human Regular 10 units 11/21/19 15:07 Novolin R Vial *For Ivpush Or Iv Drip Only* IVPUSH 11/21/19 15:08 ONCE ONE Sodium Zirconium Cyclosilicate 10 gm 11/21/19 15:07 Lokelma PO 11/21/19 15:08 ONCE ONE Tamsulosin HCl 0.4 mg 11/22/19 08:30 Flomax - PO DAILY@0830 [facility] A/p: 69 M h/o COPD on home 02, CAD s/p CABG (EF 38%), CKD, DM 2, CVA, s/p PPM, 1st deg av block, h/o cardiorenal syndrome, admitted for BRANT and CHFE, ?recurrent cardiorenal syndrome. BRANT possible 2/2 repeat cardiorenal syndrome aggressive correction of hyperkalemia with IV lasix, albuterol, insulin/dextrose , IV Lokelma PRN, repeat chem strict avoidance of contrast, nephrotoxins Renal consult: Dr. Cobian HFrEF with acute exacerbation, aggressive diuresis with IV lasix, trend chem after this to check for improvement of renal function (supporting cardiorenal) if BP allows, restart BB, hold WENDY/ARBs in view of renal function Cardiology consult History of GI bleed hold heparin/ASA for now until we obtain collateral from [facility] SCD/CYRUS for now for DVT ppx obtain LLE duplex study to r/o DVT due to swelling L>R COPD not in acute exacerbation Albuterol PRN for SOB/wheezing T2DM ISS, supplement with basal insulin as needed counseled on diet, restriction of sugar/carb intake, weight loss DVT ppx: SCD/CYRUS for now Admit to telemetry
[2019-11-21] MEDS: ALBUTEROL SO4 2.5/IPRATROPIUM 0.5 INH SOL 3 ML VIAL.NEB. NEB SCH ×3 (16:44→17:04)
[2019-11-21] MEDS: INSULIN SLIDING SCALE (NOVOLOG) 1 VIAL SQ SCH ×2 (16:45→23:01)
[2019-11-21 17:19] LABS: ANION GAP 13 MMOL/L (8-16); CALCIUM 7.4 mg/dL (8.5-10.1); CHLORIDE 96 mmol/L (98-107); CO2 22 mmol/L (21-32); GLUCOSE,RANDOM 66 mg/dL (74-106); SODIUM 132 mmol/L (136-145)
[2019-11-21 17:21] LABS: BLOOD UREA NITROGEN 120.8 mg/dL (7-18)
[2019-11-21 21:48] LABS: CALCIUM 7.7 mg/dL (8.5-10.1); CREATININE 7.3 mg/dL (0.55-1.3); POTASSIUM 4.8 mmol/L (3.5-5.1)
--- NOTE | 2019-11-21 21:56 | PN ---
Progress Note (short form) - Note Progress Note: Laboratory Tests 11/21/19 18:48 Sodium 132 L Potassium 4.8 BUN 121.0 H* Creatinine 7.3 H - potassium improved - repeat labs in am - will evaluate for HD in am - monitor urine output - follow serologies and urine studies - do not restart gabriel - cardio eval Problem List - Problems (1) Hyperkalemia Code(s): E87.5 - HYPERKALEMIA (2) Renal failure (ARF), acute on chronic Code(s): N17.9 - ACUTE KIDNEY FAILURE, UNSPECIFIED; N18.9 - CHRONIC KIDNEY DISEASE, UNSPECIFIED Qualifiers: Acute renal failure type: unspecified Chronic kidney disease stage: unspecified stage Qualified Code(s): N17.9 - Acute kidney failure, unspecified ; N18.9 - Chronic kidney disease, unspecified (3) Uremia Code(s): N19 - UNSPECIFIED KIDNEY FAILURE (4) BRANT (acute kidney injury) Code(s): N17.9 - ACUTE KIDNEY FAILURE, UNSPECIFIED (5) Abnormal chest x-ray Code(s): R93.8 - ABNORMAL FINDINGS ON DIAGNOSTIC IMAGING OF [place] * DO NOT USE *
[2019-11-21 21:59] LABS: EPI CELLS 0.6 /HPF (0-5/HPF); HYALINE CASTS 6 /lpf (0-8); URINE APPEARANCE CLOUDY; URINE BACTERIA 0.8 /hpf (NEGATIVE); URINE BILIRUBIN NEGATIVE (NEGATIVE); URINE COLOR YELLOW; URINE GLUCOSE (UA) NEGATIVE (NEGATIVE); URINE KETONE NEGATIVE (NEGATIVE); URINE LEUK ESTERASE TRACE (NEGATIVE); URINE NITRITE NEGATIVE (NEGATIVE); URINE PROTEIN 1+ (NEGATIVE); URINE RBC 29 /hpf (0-4); URINE UROBILINOGEN 0.2 mg/dL (0.2-1.0); URINE WBC 2 /hpf (0-5)
[2019-11-21] MEDS ORDERED: HEPARIN NA (PORCINE) 5,000 UNITS/ML 1ML VIAL SQ SCH (22:00)
[2019-11-21 22:10] LABS: COCAINE, UR NEGATIVE ng/ml (CUTOFF=300); METHADONE, UR NEGATIVE ng/ml (CUTOFF=300); PHENCYCLIDINE,URINE NEGATIVE ng/ml (CUTOFF=25); URINE AMPHETAMINES NEGATIVE ng/ml (CUTOFF=500); URINE BARBITURATES NEGATIVE ng/ml (CUTOFF=200); URINE BENZODIAZEPINES NEGATIVE ng/ml (CUTOFF=200)
[2019-11-21 22:11] LABS: OPIATES, URI POSITIVE ng/ml (CUTOFF=300)
[2019-11-22] MEDS: oxyCODONE HCL 5 MG TABLET PO PRN ×3 (02:10→20:45)
[2019-11-22] MEDS ORDERED: FUROSEMIDE 40 MG/4 ML INJECTABLE VIAL IVPUSH SCH ×2 (06:00→10:00)
[2019-11-22] MEDS: INSULIN SLIDING SCALE (NOVOLOG) 1 VIAL SQ SCH ×4 (06:06→22:04)
[2019-11-22 07:14] LABS: BASO % 0.7 % (0-2.0); EOS % 0.5 % (0-4.5); HEMATOCRIT 25.7 % (35.4-49); HEMOGLOBIN 8.4 GM/dL (11.7-16.9); LYMPH % 5.5 % (8-40); MCH 28.5 pg (25.7-33.7); MCHC 32.5 g/dl (32.0-35.9); MEAN CELL VOLUME 87.6 fl (80-96); MEAN PLT VOLUME 9.8 fl (7.5-11.1); MONO % 14.4 % (3.8-10.2); NEUT % 78.9 % (42.8-82.8); PLATELET COUNT 183 K/MM3 (134-434); RBC 2.93 M/mm3 (4.00-5.60); RDW 16.4 % (11.9-15.9); WHITE BLOOD COUNT 8.8 K/mm3 (4.0-10.0)
[2019-11-22 07:39] LABS: ALBUMIN 2.7 g/dl (3.4-5.0); BILIRUBIN,TOTAL 0.2 mg/dL (0.2-1); CALCIUM 7.7 mg/dL (8.5-10.1); MAGNESIUM 1.5 mg/dL (1.8-2.4); PHOSPHOROUS 8.6 mg/dL (2.5-4.9); POTASSIUM 5.2 mmol/L (3.5-5.1); TOT PROT 5.6 g/dl (6.4-8.2)
[2019-11-22 07:52] LABS: CREATININE 7.6 mg/dL (0.55-1.3)
[2019-11-22] MEDS ORDERED: SODIUM CHLORIDE 250 ML IV PRN (08:05)
[2019-11-22] MEDS ORDERED: MAGNESIUM OXIDE 400 MG TABLET (FP) PO ONE (08:06)
--- NOTE | 2019-11-22 08:37 | PN ---
Teaching Attending Note Name of Resident: Ynes Conway ATTENDING PHYSICIAN STATEMENT I saw and evaluated the patient. I reviewed the resident's note and discussed the case with the resident. I agree with the resident's findings and plan as documented. SUBJECTIVE: OBJECTIVE: Vital Signs Temp 98.9 F 11/22/19 06:00 Pulse 75 11/22/19 06:00 Resp 18 11/22/19 06:00 BP 109/57 L 11/22/19 06:00 Pulse Ox 97 11/21/19 21:00 Intake & Output 11/21/19 11/21/19 11/22/19 11:59 23:59 11:59 Intake Total 130 130 Output Total 900 100 Balance -770 30 Weight 187 lb 202 lb 200 lb 4 oz Intake: IV 10 10 SALINE LOCK 10 10 Oral 120 120 Output: Urine 900 100 Dupree 900 100 Other: Voiding Method Indwelling Catheter Indwelling Catheter Height 5 ft 8 in 5 ft 8 in Body Mass Index (BMI) 28.4 30.7 Weight Measurement Method Patient Lift Scale Patient Lift Scale Weight Measurement Method Est/Stated by Patient General: Elderly man, disheveled not in distress HEENT; mucous membranes moist, no anemia, no jaundice, PERRLA, no nystagmus Neck: No JVD, supple, no bruit, thyroid palpably normal, normal carotid pulsations. Chest: Nontender, bilateral basal rales. CVS: S1-S2 regularno murmur/gallop/rub Abdomen: Nondistended, soft, bowel sounds present. 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; Protocol Last Admin: 11/22/19 06:06 Dose: Not Given Oxycodone HCl (Roxicodone -) 20 mg PO Q4H PRN PRN Reason: PAIN LEVEL 6-10 Last Admin: 11/22/19 02:10 Dose: 20 mg Tamsulosin HCl (Flomax -) 0.4 mg PO DAILY@0830 [facility] ASSESSMENT AND PLAN: 69-year-old man history of heart failure with reduced ejection fraction, CAD status post CABG 02/2019 ischemic cardiomyopathy systolic heart failure with reduced ejection fraction of 29%, at baseline CKD stage III, type 2 diabetes mellitus CVA, status post pacemaker, recently transferred to [facility] after treated at [facility] on November 09, 2019 patient was admitted with BRANT uremic encephalopathy, received 1 dialysis patient also has melena, after first dialysis renal functions and urine output was improved, yesterday patient presented to ED with feeling unwell decreasing urine output [patient is unable to provide any information about treatment at [facility] and current medication], in the ED work-up shows BRANT with hyperkalemia potassium 5.8 and BUN/creatinine 121/7.1, nephrology was consulted, as per patient no EGD was performed and he was discharged home. Plan: Patient needs hemodialysis, rest continue current management overnight urine output only 150 cc. Problem List - Problems (1) Renal failure (ARF), acute on chronic Assessment/Plan: Unclear etiology, evaluated by mental health specialist, overnight urine output only 150 cc , patient will get Shiley for hemodialysis follow-up BMP after hemodialysis. Patient needs evaluation for worsening renal function. Problems reviewed: Yes Code(s): N17.9 - ACUTE KIDNEY FAILURE, UNSPECIFIED; N18.9 - CHRONIC KIDNEY DISEASE, UNSPECIFIED Qualifiers: Acute renal failure type: unspecified Chronic kidney disease stage: unspecified stage Qualified Code(s): N17.9 - Acute kidney failure, unspecified ; N18.9 - Chronic kidney disease, unspecified (2) Acute on chronic systolic and diastolic heart failure, NYHA class 2 Assessment/Plan: Currently all medications are on hold we will follow-up cardiology recommendations. Problems reviewed: Yes Code(s): I50.43 - ACUTE ON CHRONIC COMBINED SYSTOLIC AND DIASTOLIC HRT FAIL (3) CAD (coronary artery disease) Assessment/Plan: Status post cabg IN February 2019, previously had black tarry stools, at present H&H stable, cardiology recommendation (appreciated considering low H&H, recent history of melena that was not evaluated by EGD and plan for renal biopsy aspirin is on hold. Will add beta-blockers and statin. Problems reviewed: Yes Code(s): I25.10 - ATHSCL HEART DISEASE OF [place] CORONARY ARTERY W/O ANG PCTRS Qualifiers: [place] vs. transplanted heart: [place] heart Associated angina: without angina (4) Atrial fibrillation Assessment/Plan: Status post pacemaker, anticoagulation on hold for bleeding risk and plan for renal biopsy will continue beta-blockers for rate control Problems reviewed: Yes Code(s): I48.91 - UNSPECIFIED ATRIAL FIBRILLATION (5) Hypercholesterolemia Assessment/Plan: Continue statin Problems reviewed: Yes Code(s): E78.00 - PURE HYPERCHOLESTEROLEMIA, UNSPECIFIED (6) Type 2 diabetes mellitus Assessment/Plan: Continue correction dose insulin Problems reviewed: Yes Code(s): E11.9 - TYPE 2 DIABETES MELLITUS WITHOUT COMPLICATIONS
[2019-11-22 08:55] LABS: ANISOCYTOSIS 1+; MACROCYTOSIS 0; PLATELET ESTIMATE NORMAL
--- NOTE | 2019-11-22 09:01 | PN ---
Physical Exam: SUBJECTIVE: Patient seen and examined. No overnight events. Says he feels better today than yesterday. Denies sob, chest pain, fevers, chills, dizziness. OBJECTIVE: Vital Signs Period Temp Pulse Resp BP Sys/Chandra Pulse Ox Last 24 Hr 97.8 F-98.9 F 64-81 16-20 97-111/50-74 94-97 GENERAL: in nad, comfortable in bed EYES: PERRL, conjunctiva clear. No ptosis. ENT: dry mucous membranes. Chest: vertical scar from CABG NECK: supple. LUNGS: bibasilar crackles HEART: RRR ABDOMEN: Soft, nontender, nondistended, normoactive bowel sounds EXTREMITIES: 2+ pulses, +trace edema LLE, LLE swelling>RLE. Laboratory Results - last 24 hr 11/21/19 11/21/19 11/21/19 11:55 11:55 11:55 WBC 13.0 H RBC 3.27 L Hgb 9.1 L Hct 29.1 L MCV 89.0 MCH 28.0 MCHC 31.4 L RDW 16.8 H Plt Count 194 MPV 9.4 Absolute Neuts (auto) 10.9 H Neutrophils % 83.9 H Neutrophils % (Manual) 81.5 Band Neutrophils % 0.0 Lymphocytes % 3.2 L D Lymphocytes % (Manual) 4.1 L D Monocytes % 12.2 H Monocytes % (Manual) 12 H Eosinophils % 0.2 D Eosinophils % (Manual) 0.0 Basophils % 0.5 Basophils % (Manual) 0.0 Myelocytes % (Man) 0 D Promyelocytes % (Man) 0 Blast Cells % (Manual) 0 Nucleated RBC % 0 Metamyelocytes 1 Hypochromia 0 Platelet Estimate Normal Polychromasia 0 Poikilocytosis 1+ Anisocytosis 1+ Microcytosis 1+ Macrocytosis 0 PT with INR 13.10 H INR 1.11 H PTT (Actin FS) 30.5 Sodium 133 L Potassium 5.9 H Chloride 99 Carbon Dioxide 21 Anion Gap 13 BUN 115.3 H* Creatinine 6.9 H Est GFR (CKD-EPI)AfAm 8.46 Est GFR (CKD-EPI)NonAf 7.30 POC Glucometer Random Glucose 84 Calcium 7.8 L Phosphorus Magnesium Total Bilirubin 0.3 AST 13 L ALT 17 Alkaline Phosphatase 90 Creatine Kinase 77 Troponin I 0.02 B-Natriuretic Peptide Total Protein 6.1 L Albumin 3.0 L Urine Color Urine Appearance Urine pH Ur Specific [place] Urine Protein Urine Glucose (UA) Urine Ketones Urine Blood Urine Nitrite Urine Bilirubin Urine Urobilinogen Ur Leukocyte Esterase Urine WBC (Auto) Urine RBC (Auto) Urine Casts (Auto) U Epithel Cells (Auto) Urine Bacteria (Auto) Urine Yeast (Auto) Ur Random Creatinine Ur Random Sodium Ur Random Potassium Ur Random Chloride Ur Random Urea Nitrogn Opiates Screen Methadone Screen Barbiturate Screen Phencyclidine Screen Ur Amphetamines Screen MDMA (Ecstasy) Screen Benzodiazepines Screen Cocaine Screen U Marijuana (THC) Screen Alcohol, Quantitative 11/21/19 11/21/19 11/21/19 11:55 12:05 15:00 WBC RBC Hgb Hct MCV MCH MCHC RDW Plt Count MPV Absolute Neuts (auto) Neutrophils % Neutrophils % (Manual) Band Neutrophils % Lymphocytes % Lymphocytes % (Manual) Monocytes % Monocytes % (Manual) Eosinophils % Eosinophils % (Manual) Basophils % Basophils % (Manual) Myelocytes % (Man) Promyelocytes % (Man) Blast Cells % (Manual) Nucleated RBC % Metamyelocytes Hypochromia Platelet Estimate Polychromasia Poikilocytosis Anisocytosis Microcytosis Macrocytosis PT with INR INR PTT (Actin FS) Sodium 132 L Potassium 6.0 H Chloride 96 L Carbon Dioxide 22 Anion Gap 13 BUN 120.8 H* Creatinine 7.0 H Est GFR (CKD-EPI)AfAm 8.31 Est GFR (CKD-EPI)NonAf 7.17 POC Glucometer Random Glucose 66 L Calcium 7.4 L Phosphorus Magnesium Total Bilirubin AST ALT Alkaline Phosphatase Creatine Kinase Troponin I 0.02 B-Natriuretic Peptide > 90664.0 H Total Protein Albumin Urine Color Yellow Urine Appearance Cloudy Urine pH 5.0 Ur Specific [place] 1.017 Urine Protein Trace Urine Glucose (UA) Negative Urine Ketones Negative Urine Blood 3+ H Urine Nitrite Negative Urine Bilirubin Negative Urine Urobilinogen 0.2 Ur Leukocyte Esterase Trace Urine WBC (Auto) 2 Urine RBC (Auto) 29 Urine Casts (Auto) 6 U Epithel Cells (Auto) 0.7 Urine Bacteria (Auto) 47.3 Urine Yeast (Auto) None seen Ur Random Creatinine Ur Random Sodium Ur Random Potassium Ur Random Chloride Ur Random Urea Nitrogn Opiates Screen Methadone Screen Barbiturate Screen Phencyclidine Screen Ur Amphetamines Screen MDMA (Ecstasy) Screen Benzodiazepines Screen Cocaine Screen U Marijuana (THC) Screen Alcohol, Quantitative < 3 11/21/19 11/21/19 11/21/19 16:35 18:48 20:45 WBC RBC Hgb Hct MCV MCH MCHC RDW Plt Count MPV Absolute Neuts (auto) Neutrophils % Neutrophils % (Manual) Band Neutrophils % Lymphocytes % Lymphocytes % (Manual) Monocytes % Monocytes % (Manual) Eosinophils % Eosinophils % (Manual) Basophils % Basophils % (Manual) Myelocytes % (Man) Promyelocytes % (Man) Blast Cells % (Manual) Nucleated RBC % Metamyelocytes Hypochromia Platelet Estimate Polychromasia Poikilocytosis Anisocytosis Microcytosis Macrocytosis PT with INR INR PTT (Actin FS) Sodium 132 L Potassium 4.8 Chloride 96 L Carbon Dioxide 22 Anion Gap 14 BUN 121.0 H* Creatinine 7.3 H Est GFR (CKD-EPI)AfAm 7.90 Est GFR (CKD-EPI)NonAf 6.82 POC Glucometer 76 Random Glucose 80 Calcium 7.7 L Phosphorus Magnesium Total Bilirubin AST ALT Alkaline Phosphatase Creatine Kinase Troponin I B-Natriuretic Peptide Total Protein Albumin Urine Color Urine Appearance Urine pH Ur Specific [place] Urine Protein Urine Glucose (UA) Urine Ketones Urine Blood Urine Nitrite Urine Bilirubin Urine Urobilinogen Ur Leukocyte Esterase Urine WBC (Auto) Urine RBC (Auto) Urine Casts (Auto) U Epithel Cells (Auto) Urine Bacteria (Auto) Urine Yeast (Auto) Ur Random Creatinine 117.0 Ur Random Sodium Ur Random Potassium Ur Random Chloride Ur Random Urea Nitrogn Opiates Screen Methadone Screen Barbiturate Screen Phencyclidine Screen Ur Amphetamines Screen MDMA (Ecstasy) Screen Benzodiazepines Screen Cocaine Screen U Marijuana (THC) Screen Alcohol, Quantitative 11/21/19 11/21/19 11/21/19 20:45 20:45 21:05 WBC RBC Hgb Hct MCV MCH MCHC RDW Plt Count MPV Absolute Neuts (auto) Neutrophils % Neutrophils % (Manual) Band Neutrophils % Lymphocytes % Lymphocytes % (Manual) Monocytes % Monocytes % (Manual) Eosinophils % Eosinophils % (Manual) Basophils % Basophils % (Manual) Myelocytes % (Man) Promyelocytes % (Man) Blast Cells % (Manual) Nucleated RBC % Metamyelocytes Hypochromia Platelet Estimate Polychromasia Poikilocytosis Anisocytosis Microcytosis Macrocytosis PT with INR INR PTT (Actin FS) Sodium Potassium Chloride Carbon Dioxide Anion Gap BUN Creatinine Est GFR (CKD-EPI)AfAm Est GFR (CKD-EPI)NonAf POC Glucometer Random Glucose Calcium Phosphorus Magnesium Total Bilirubin AST ALT Alkaline Phosphatase Creatine Kinase Troponin I B-Natriuretic Peptide Total Protein Albumin Urine Color Yellow Urine Appearance Cloudy Urine pH 5.0 Ur Specific [place] 1.017 Urine Protein 1+ H Urine Glucose (UA) Negative Urine Ketones Negative Urine Blood 3+ H Urine Nitrite Negative Urine Bilirubin Negative Urine Urobilinogen 0.2 Ur Leukocyte Esterase Trace Urine WBC (Auto) 2 Urine RBC (Auto) 29 Urine Casts (Auto) 6 U Epithel Cells (Auto) 0.6 Urine Bacteria (Auto) 0.8 Urine Yeast (Auto) None Ur Random Creatinine Ur Random Sodium 24 L Ur Random Potassium 39.0 Ur Random Chloride 28 L Ur Random Urea Nitrogn 356 Opiates Screen Methadone Screen Barbiturate Screen Phencyclidine Screen Ur Amphetamines Screen MDMA (Ecstasy) Screen Benzodiazepines Screen Cocaine Screen U Marijuana (THC) Screen Alcohol, Quantitative 11/21/19 11/21/19 11/22/19 21:05 22:59 05:28 WBC 8.8 RBC 2.93 L Hgb 8.4 L Hct 25.7 L MCV 87.6 MCH 28.5 MCHC 32.5 RDW 16.4 H Plt Count 183 MPV 9.8 Absolute Neuts (auto) 7.0 Neutrophils % 78.9 Neutrophils % (Manual) Band Neutrophils % Lymphocytes % 5.5 L D Lymphocytes % (Manual) Monocytes % 14.4 H Monocytes % (Manual) Eosinophils % 0.5 D Eosinophils % (Manual) Basophils % 0.7 Basophils % (Manual) Myelocytes % (Man) Promyelocytes % (Man) Blast Cells % (Manual) Nucleated RBC % 0 Metamyelocytes Hypochromia Platelet Estimate Polychromasia Poikilocytosis Anisocytosis Microcytosis Macrocytosis PT with INR INR PTT (Actin FS) Sodium Potassium Chloride Carbon Dioxide Anion Gap BUN Creatinine Est GFR (CKD-EPI)AfAm Est GFR (CKD-EPI)NonAf POC Glucometer 100 Random Glucose Calcium Phosphorus Magnesium Total Bilirubin AST ALT Alkaline Phosphatase Creatine Kinase Troponin I B-Natriuretic Peptide Total Protein Albumin Urine Color Urine Appearance Urine pH Ur Specific [place] Urine Protein Urine Glucose (UA) Urine Ketones Urine Blood Urine Nitrite Urine Bilirubin Urine Urobilinogen Ur Leukocyte Esterase Urine WBC (Auto) Urine RBC (Auto) Urine Casts (Auto) U Epithel Cells (Auto) Urine Bacteria (Auto) Urine Yeast (Auto) Ur Random Creatinine Ur Random Sodium Ur Random Potassium Ur Random Chloride Ur Random Urea Nitrogn Opiates Screen Positive A* Methadone Screen Negative Barbiturate Screen Negative Phencyclidine Screen Negative Ur Amphetamines Screen Negative MDMA (Ecstasy) Screen Negative Benzodiazepines Screen Negative Cocaine Screen Negative U Marijuana (THC) Screen Negative Alcohol, Quantitative 11/22/19 11/22/19 05:28 06:05 WBC RBC Hgb Hct MCV MCH MCHC RDW Plt Count MPV Absolute Neuts (auto) Neutrophils % Neutrophils % (Manual) Band Neutrophils % Lymphocytes % Lymphocytes % (Manual) Monocytes % Monocytes % (Manual) Eosinophils % Eosinophils % (Manual) Basophils % Basophils % (Manual) Myelocytes % (Man) Promyelocytes % (Man) Blast Cells % (Manual) Nucleated RBC % Metamyelocytes Hypochromia Platelet Estimate Polychromasia Poikilocytosis Anisocytosis Microcytosis Macrocytosis PT with INR INR PTT (Actin FS) Sodium 131 L Potassium 5.2 H Chloride 96 L Carbon Dioxide 21 Anion Gap 14 BUN 125.0 H* Creatinine 7.6 H* Est GFR (CKD-EPI)AfAm 7.52 Est GFR (CKD-EPI)NonAf 6.49 POC Glucometer 109 Random Glucose 73 L Calcium 7.7 L Phosphorus 8.6 H Magnesium 1.5 L Total Bilirubin 0.2 AST 10 L ALT 14 Alkaline Phosphatase 84 Creatine Kinase Troponin I B-Natriuretic Peptide Total Protein 5.6 L Albumin 2.7 L Urine Color Urine Appearance Urine pH Ur Specific [place] Urine Protein Urine Glucose (UA) Urine Ketones Urine Blood Urine Nitrite Urine Bilirubin Urine Urobilinogen Ur Leukocyte Esterase Urine WBC (Auto) Urine RBC (Auto) Urine Casts (Auto) U Epithel Cells (Auto) Urine Bacteria (Auto) Urine Yeast (Auto) Ur Random Creatinine Ur Random Sodium Ur Random Potassium Ur Random Chloride Ur Random Urea Nitrogn Opiates Screen Methadone Screen Barbiturate Screen Phencyclidine Screen Ur Amphetamines Screen MDMA (Ecstasy) Screen Benzodiazepines Screen Cocaine Screen U Marijuana (THC) Screen Alcohol, Quantitative Active Medications Generic Name Dose Route Start Last Admin Trade Name Freq PRN Reason Stop Dose Admin Sodium Chloride 250 mls @ 3,000 mls/hr 11/22/19 08:05 Normal Saline - IV 01/25/20 08:05 PRN PRN Hypotension during Dialysis Insulin Aspart 1 vial 11/21/19 16:30 11/22/19 06:06 Novolog Vial Sliding Scale - SQ Not Given ACHS [facility] Protocol Oxycodone HCl 20 mg 11/21/19 20:59 11/22/19 02:10 Roxicodone - PO 20 mg Q4H PRN Administration PAIN LEVEL 6-10 Tamsulosin HCl 0.4 mg 11/22/19 08:30 Flomax - PO DAILY@0830 [facility] ASSESSMENT/PLAN: #ARF #Cardiorenal Syndrome #CHF #HTN #CAD #Dyslipidemia #S/P CABG #PPM #Volume Overload #Atrial Fibrillation Plan: -renal function worsening this AM - plan fo Possible dialysis this am -will need shiley inserted -Nephro on board. -FU autoimmune, hep panel -Dupree -strict I/o's, daily weights -Lasix 40mg IV BID -Kidney bladder US -cardio consult -CXR with no acute changes -monitor vital signs -tele monitoring -FU am labs Visit type - Emergency Visit Emergency Visit: Yes ED Registration Date: 11/21/19 Care time: The patient presented to the Emergency Department on the above date and was hospitalized for further evaluation of their emergent condition. - New Patient This patient is new to me today: Yes Date on this admission: 11/22/19 - Critical Care Critical Care patient: No ATTENDING PHYSICIAN STATEMENT I saw and evaluated the patient. I reviewed the resident's note and discussed the case with the resident. I agree with the resident's findings and plan as documented. SUBJECTIVE: OBJECTIVE: ASSESSMENT AND PLAN:
[2019-11-22] MEDS ORDERED: DEXTROSE 50%-WATER - 25 GM/50 ML VIAL IVPUSH ONE ×2 (09:52→10:15)
[2019-11-22] MEDS ORDERED: INSULIN REGULAR HUMAN 100 UNITS/ML *VIAL IVPUSH ONE (10:00)
--- NOTE | 2019-11-22 10:01 | CON.CARD ---
Consult Consult Specialty:: Cardiology Referred by:: Dr. Siegel Reason for Consultation:: CAD/CHF - History of Present Illness Chief Complaint: weakness History of Present Illness: 69M h/o dm, ckd (1.5-2), CVA 10/2014, CAD s/p STEMI and multiple pci's, s/p CABG 02/2019, s/p PPM, ischemic CM with systolic chf, COPD, extensive smoking history (quit 12/2016) , recently admitted here with low H/H , GIB, NSTEMI. Was transferred to [facility] by GI after echo and nuclear stress test showed extensive areas of scarring and decreased LVEF. Per patient, no EGD or C-scope done at [facility]. He was observed, H/H stabilized and he was discharged home. Yesterday, brought him back to hospital because "she thought my body was shutting down". He was found to be in acute renal failure with hyperkalemia. Of note, he did require temporary HD last admission. Presently, denies CP/SOB/Palps. TELE: Paced with rare VPCs. - History Source History Provided By: Patient, Medical Record - Past Medical History [employer]: Yes: CVA, Peripheral Neuropathy Cardio/Vascular: Yes: CHF, HTN, Hyperlipdemia, NC Pulmonary: Yes: COPD, O2 Dependent, Pneumonia, Previously Intubated Gastrointestinal: Yes: GERD, Other (Recent GIB) Renal/: Yes: Renal Failure, Renal Inusuff, Other Infectious Disease: Yes: MRSA Psych: Yes: Addictions Musculoskeletal: Yes: Other, Other Endocrine: Yes: Diabetes Mellitus - Past Surgical History Past Surgical History: Yes: CABG (4v), Permanent Pacemaker, Stent (PCIX5) - Alcohol/Substance Use Hx Alcohol Use: No History of Substance Use: reports: None - Smoking History Smoking history: Never smoked Have you smoked in the past 12 months: No Aproximately how many cigarettes per day: 30 If you are a former smoker, when did you quit?: 3 years - Social History Usual Living Arrangement: With Spouse ADL: Family Assistance History of Recent Travel: No Home Medications - Allergies Allergies/Adverse Reactions: Allergies Allergy/AdvReac Type Severity Reaction Status Date / Time No Known Allergies Allergy Verified 11/09/19 13:10 - Home Medications Home Medications: Ambulatory Orders Ferrous Sulfate [Feosol] 325 mg PO DAILY 04/15/19 Fluticasone Propionate 16 gm NS DAILY 04/15/19 Folic Acid - 1 mg PO DAILY 04/15/19 Insulin (LOG) Aspart [NovoLOG -] 0 units SQ ASDIR 04/15/19 Lansoprazole [Prevacid -] 30 mg PO DAILY 04/15/19 Potassium Chloride [K-Dur -] 20 meq PO DAILY 04/15/19 Pregabalin [Lyrica -] 75 mg PO TID 04/15/19 Rosuvastatin [Crestor -] 20 mg PO DAILY 04/15/19 Tamsulosin HCl [Flomax -] 0.4 mg PO DAILY 04/15/19 Warfarin Na [Coumadin -] 5 mg PO DAILY@1800 04/15/19 Aspirin [ASA -] 81 mg PO DAILY #30 tab.chew 04/18/19 Furosemide [Lasix -] 80 mg PO BID@0600,1400 #60 tablet 04/18/19 Isosorbide Mononitrate [Imdur -] 30 mg PO DAILY #30 tab.sr.24h 04/18/19 Metoprolol Succinate [Toprol XL -] 25 mg PO BID #60 tab.sr.24h 04/18/19 Rosuvastatin [Crestor -] 20 mg PO HS #30 tablet 04/18/19 hydrALAZINE HCL [Apresoline -] 10 mg PO BID #60 tablet 04/18/19 Lisinopril [Zestril] 2.5 mg PO DAILY 11/09/19 Morphine Sulfate 30 mg PO BID 11/09/19 Oxycodone HCl 20 mg PO Q4H PRN 11/09/19 Pantoprazole Sodium 40 mg PO DAILY 11/09/19 Family Medical History Family History: Unremarkable (not pertinent to this presentation.) Review of Systems - Review of Systems Constitutional: reports: Malaise, Weakness Eyes: reports: No Symptoms HENT: reports: No Symptoms Neck: reports: No Symptoms Cardiovascular: reports: No Symptoms Respiratory: reports: No Symptoms Gastrointestinal: reports: No Symptoms Genitourinary: reports: No Symptoms Breasts: reports: No Symptoms Reported Musculoskeletal: reports: No Symptoms Integumentary: reports: No Symptoms Neurological: reports: No Symptoms Endocrine: reports: No Symptoms Hematology/Lymphatic: reports: No Symptoms Psychiatric: reports: No Symptoms - Risk Factors Known Risk Factors: Yes: Prior NC /Emb Stroke Vital Signs: Vital Signs Temperature 98.9 F 11/22/19 06:00 Pulse Rate 75 11/22/19 06:00 Respiratory Rate 18 11/22/19 06:00 Blood Pressure 109/57 L 11/22/19 06:00 O2 Sat by Pulse Oximetry (%) 97 11/21/19 21:00 Constitutional: Yes: No Distress Eyes: Yes: Conjunctiva Clear Respiratory: Yes: CTA Bilaterally Gastrointestinal: Yes: Soft Cardiovascular: Yes: Regular Rate and Rhythm Heart Sounds: Yes: S1, S2 Edema: No Neurological: Yes: Alert - Other Data Labs, Other Data: CBC, BMP 11/22/19 05:28 11/22/19 05:28 INR, PTT INR 1.11 (0.83-1.09) H 11/21/19 11:55 Troponin, BNP 11/21/19 11/21/19 11/21/19 11:55 11:55 15:00 Troponin I 0.02 0.02 B-Natriuretic Peptide > 80169.0 H Troponin, BNP 11/21/19 11/21/19 11/21/19 11:55 11:55 15:00 Troponin I 0.02 0.02 B-Natriuretic Peptide > 06044.0 H Laboratory Tests 11/09/19 11/09/19 11/09/19 13:50 14:00 22:45 WBC Hgb Plt Count Sodium Potassium BUN Creatinine AST ALT Alkaline Phosphatase Troponin I 0.46 H 1.89 H* Total Protein Albumin Stool Occult Blood Positive Opiates Screen Methadone Screen Barbiturate Screen Phencyclidine Screen Ur Amphetamines Screen MDMA (Ecstasy) Screen Benzodiazepines Screen Cocaine Screen U Marijuana (THC) Screen Alcohol, Quantitative 11/10/19 11/11/19 11/12/19 05:45 06:00 05:30 WBC Hgb Plt Count Sodium 140 Potassium 4.6 BUN Creatinine 2.3 H AST ALT Alkaline Phosphatase Troponin I 3.74 H* 1.78 H* Total Protein Albumin Stool Occult Blood Opiates Screen Methadone Screen Barbiturate Screen Phencyclidine Screen Ur Amphetamines Screen MDMA (Ecstasy) Screen Benzodiazepines Screen Cocaine Screen U Marijuana (THC) Screen Alcohol, Quantitative 11/12/19 11/21/19 11/21/19 05:30 11:55 11:55 WBC 8.9 13.0 H Hgb 9.7 L 9.1 L Plt Count 160 194 Sodium Potassium 5.9 H BUN Creatinine AST ALT Alkaline Phosphatase Troponin I Total Protein Albumin Stool Occult Blood Opiates Screen Methadone Screen Barbiturate Screen Phencyclidine Screen Ur Amphetamines Screen MDMA (Ecstasy) Screen Benzodiazepines Screen Cocaine Screen U Marijuana (THC) Screen Alcohol, Quantitative 11/21/19 11/21/19 11/21/19 15:00 18:48 21:05 WBC Hgb Plt Count Sodium 132 L Potassium 6.0 H 4.8 BUN 121.0 H* Creatinine 7.3 H AST ALT Alkaline Phosphatase Troponin I Total Protein Albumin Stool Occult Blood Opiates Screen Positive A* Methadone Screen Negative Barbiturate Screen Negative Phencyclidine Screen Negative Ur Amphetamines Screen Negative MDMA (Ecstasy) Screen Negative Benzodiazepines Screen Negative Cocaine Screen Negative U Marijuana (THC) Screen Negative Alcohol, Quantitative < 3 11/22/19 11/22/19 05:28 05:28 WBC 8.8 Hgb 8.4 L Plt Count 183 Sodium 131 L Potassium 5.2 H BUN 125.0 H* Creatinine 7.6 H* AST 10 L ALT 14 Alkaline Phosphatase 84 Troponin I Total Protein 5.6 L Albumin 2.7 L Stool Occult Blood Opiates Screen Methadone Screen Barbiturate Screen Phencyclidine Screen Ur Amphetamines Screen MDMA (Ecstasy) Screen Benzodiazepines Screen Cocaine Screen U Marijuana (THC) Screen Alcohol, Quantitative Laboratory Tests 11/21/19 11/21/19 11:55 15:00 Troponin I 0.02 0.02 nsr first degree avb, old IWMI, LVH, RBBB, nsst Imaging - Results X-ray: Image Reviewed EKG: Image Reviewed Assessment/Plan DATA: Echo 11/11/2019: Severe LV dysfunction, EF < 35%. Mild PHTN. AVS Lexiscan MPI 11/12/2019: Large fixed anterior wall, apical, distal septal and distal inferior wall scar. No ischemia, EF 31% [facility] 05/15: 70-80% mRCA (ISR), 70-80% RPDA (ISR); 70-80% mLAD; 80-90% pLCX (small vessel); 90-95% OM2 (large vessel); 80-90% prox Ramus (large vessel) ...nonobstructive dz of note [id number] ostial RCA, 50-60% eccentric lesion OM1 (large vessel); EDP 30-->25 post-nitro EF 38% (diffuse WMAs) Syntax score 20 IMP: Acute on chronic renal failure Hyperkalemia secondary to above. CAD s/p multiple MIs, PCIs and CABG (02/2019 at [facility]) Ischemic CM with chronic systolic systolic (LVEF < 35%) PAF, off AC secondary to recent GI bleeds (no source identified) PPM History of CVA REC: 1. Management of hyperkalemia as per renal; may need to resume HD. AC was being held for prior GI bleeds (without identified source). Thus, can hold for kidney bx if required. 2. Agree with holding Lisinopril in setting ARF/hyperK 3. Continue home statin and Metoprolol for chronic CAD/systolic CHF/AF (unless BP limits use). Hold ASA as renal bx is planned. 4. Pacemaker seems to be working appropriately on telemetry thus far; routine outpt interrogations. 5. [id number] score is high and AC is warranted; however, recent GIB w/ drop in H/H and guaiac + stool that was not fully investigated with endoscopic evaluation.There is also need for renal biopsy at this time. Would continue to hold AC/ and ASA in this setting as risks>> benefits. Would try to resume low dose ASA with PPI after renal bx
[2019-11-22] MEDS: TAMSULOSIN HCL 0.4 MG CAP PO SCH (10:55)
--- NOTE | 2019-11-22 11:12 | CON.PULM ---
Consult Consult Specialty:: PULM/CCM Referred by:: CLINTON Reason for Consultation:: COPD - History of Present Illness Chief Complaint: malaise and SOB History of Present Illness: 69 M, O2 dependent COPD for the last 2 to 3 years due to previous smoking history, HTN, CAD, CHF, CKD (previous HD), DM, and CVA. Admitted via the ER due to malaise and fatigue and dsypnea on exertion. No fever or chills. No travel history or sick contacts. No hemoptysis or night sweats. He does snore and there is a history that would be concerning for OSAS CXR: No acute process. 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 No: Asthma, Pulmonary Embolus, Pulmonary Fibrosis Gastrointestinal: Yes: GERD, Other (Recent GIB) Renal/: Yes: Renal Failure, Renal Inusuff, Other Infectious Disease: Yes: MRSA Psych: Yes: Addictions Musculoskeletal: Yes: Other, Other Endocrine: Yes: Diabetes Mellitus - Past Surgical History Past Surgical History: Yes: CABG (4v), Permanent Pacemaker, Stent (PCIX5) - Alcohol/Substance Use Hx Alcohol Use: No History of Substance Use: reports: None - Smoking History Smoking history: Never smoked Have you smoked in the past 12 months: No Aproximately how many cigarettes per day: 30 If you are a former smoker, when did you quit?: 3 years - Social History Usual Living Arrangement: With Spouse ADL: Family Assistance History of Recent Travel: No Home Medications - Allergies Allergies/Adverse Reactions: Allergies Allergy/AdvReac Type Severity Reaction Status Date / Time No Known Allergies Allergy Verified 11/09/19 13:10 - Home Medications Home Medications: Ambulatory Orders Ferrous Sulfate [Feosol] 325 mg PO DAILY 04/15/19 Fluticasone Propionate 16 gm NS DAILY 04/15/19 Folic Acid - 1 mg PO DAILY 04/15/19 Insulin (LOG) Aspart [NovoLOG -] 0 units SQ ASDIR 04/15/19 Lansoprazole [Prevacid -] 30 mg PO DAILY 04/15/19 Potassium Chloride [K-Dur -] 20 meq PO DAILY 04/15/19 Pregabalin [Lyrica -] 75 mg PO TID 04/15/19 Rosuvastatin [Crestor -] 20 mg PO DAILY 04/15/19 Tamsulosin HCl [Flomax -] 0.4 mg PO DAILY 04/15/19 Warfarin Na [Coumadin -] 5 mg PO DAILY@1800 04/15/19 Aspirin [ASA -] 81 mg PO DAILY #30 tab.chew 04/18/19 Furosemide [Lasix -] 80 mg PO BID@0600,1400 #60 tablet 04/18/19 Isosorbide Mononitrate [Imdur -] 30 mg PO DAILY #30 tab.sr.24h 04/18/19 Metoprolol Succinate [Toprol XL -] 25 mg PO BID #60 tab.sr.24h 04/18/19 Rosuvastatin [Crestor -] 20 mg PO HS #30 tablet 04/18/19 hydrALAZINE HCL [Apresoline -] 10 mg PO BID #60 tablet 04/18/19 Lisinopril [Zestril] 2.5 mg PO DAILY 11/09/19 Morphine Sulfate 30 mg PO BID 11/09/19 Oxycodone HCl 20 mg PO Q4H PRN 11/09/19 Pantoprazole Sodium 40 mg PO DAILY 11/09/19 Review of Systems - Review of Systems Constitutional: reports: Lethargy, Malaise, Weakness. denies: Chills, Fever, Night Sweats Eyes: reports: No Symptoms HENT: reports: No Symptoms Neck: reports: No Symptoms Cardiovascular: reports: Shortness of Breath. denies: Chest Pain, Edema, Palpitations Respiratory: reports: Cough, Snoring, SOB, SOB on Exertion. denies: Exercise Intolerance, Hemoptysis, Orthopnea, PND, Wheezing Gastrointestinal: reports: No Symptoms Genitourinary: reports: No Symptoms Breasts: reports: No Symptoms Reported Musculoskeletal: reports: No Symptoms Integumentary: reports: No Symptoms Neurological: reports: No Symptoms Endocrine: reports: No Symptoms Hematology/Lymphatic: reports: No Symptoms Psychiatric: reports: No Symptoms Physical Exam Vital Sings: Vital Signs Temperature 98.9 F 11/22/19 06:00 Pulse Rate 75 11/22/19 06:00 Respiratory Rate 18 11/22/19 06:00 Blood Pressure 109/57 L 11/22/19 06:00 O2 Sat by Pulse Oximetry (%) 97 11/21/19 21:00 Constitutional: Yes: No Distress, Calm Eyes: Yes: Conjunctiva Clear, EOM Intact HENT: Yes: Atraumatic, Normocephalic Neck: Yes: Supple, Trachea Midline Cardiovascular: Yes: Regular Rate and Rhythm Respiratory: Yes: Cough, Diminished, On Nasal O2, Rhonchi. No: Accessory Muscle Use, Rales, SOB, SOB on Exertion, Stridor, Tachypnea, Wheezes ...Inspection: Yes: WNL ...Clubbing: No Gastrointestinal: Yes: Normal Bowel Sounds, Soft Musculoskeletal: Yes: WNL Extremities: Yes: WNL Edema: Yes Peripheral Pulses WNL: Yes Integumentary: Yes: WNL Neurological: Yes: WNL, Alert, Oriented ...Motor Strength: WNL Psychiatric: Yes: WNL, Alert, Oriented Labs: CBC, BMP 11/22/19 05:28 11/22/19 05:28 Imaging - Results Chest X-ray: Report Reviewed, Image Reviewed Problem List - Problems (1) Supplemental oxygen dependent Code(s): Z99.81 - DEPENDENCE ON SUPPLEMENTAL OXYGEN (2) Back pain Code(s): M54.9 - DORSALGIA, UNSPECIFIED (3) CAD (coronary artery disease) Code(s): I25.10 - ATHSCL HEART DISEASE OF [place] CORONARY ARTERY W/O ANG PCTRS Qualifiers: [place] vs. transplanted heart: [place] heart Associated angina: without angina (4) CKD (chronic kidney disease) Code(s): N18.9 - CHRONIC KIDNEY DISEASE, UNSPECIFIED Qualifiers: Chronic kidney disease stage: stage 2 (mild) Qualified Code(s): N18.2 - Chronic kidney disease, stage 2 (mild) (5) COPD (chronic obstructive pulmonary disease) Code(s): J44.9 - CHRONIC OBSTRUCTIVE PULMONARY DISEASE, UNSPECIFIED (6) Congestive heart failure (CHF) Code(s): I50.9 - HEART FAILURE, UNSPECIFIED Qualifiers: Heart failure type: other Qualified Code(s): I50.9 - Heart failure, unspecified (7) Diabetes mellitus Code(s): E11.9 - TYPE 2 DIABETES MELLITUS WITHOUT COMPLICATIONS Qualifiers: Diabetes mellitus type: type 2 Diabetes mellitus long term care phlebotomist insulin use: with long term care phlebotomist use Diabetes mellitus complication status: with circulatory complication Diabetes mellitus complication detail: with peripheral angiopathy with gangrene Qualified Code(s): E11.52 - Type 2 diabetes mellitus with diabetic peripheral angiopathy with gangrene (8) Dyspnea Code(s): R06.00 - DYSPNEA, UNSPECIFIED (9) History of CVA (cerebrovascular accident) Code(s): Z86.73 - PRSNL HX OF TIA (TIA), AND CEREB INFRC W/O RESID DEFICITS (10) History of GA (myocardial infarction) Code(s): I25.2 - OLD MYOCARDIAL INFARCTION (11) Hyperlipidemia Code(s): E78.5 - HYPERLIPIDEMIA, UNSPECIFIED (12) Hypertension Code(s): I10 - ESSENTIAL (PRIMARY) HYPERTENSION Qualifiers: Hypertension type: essential hypertension Qualified Code(s): I10 - Essential (primary) hypertension (13) Pedal edema Code(s): R60.0 - LOCALIZED EDEMA (14) Peripheral neuropathic pain Code(s): G62.9 - POLYNEUROPATHY, UNSPECIFIED (15) Peripheral neuropathy Code(s): G62.9 - POLYNEUROPATHY, UNSPECIFIED (16) Type 2 diabetes mellitus with diabetic autonomic (poly)neuropathy Code(s): E11.43 - TYPE 2 DIABETES W DIABETIC AUTONOMIC (POLY)NEUROPATHY Assessment/Plan IMP: COPD appears stable in not in AE Clinical condition likely due to Acute on CKD Suspected OSAS Renal evaluation noted O2 as needed Monitor off systemic steroids No smoking counseled Outpatient PFTs Will need sleep workup after discharge BD [place] PRN Will follow Thank you. Dr Perez
--- NOTE | 2019-11-22 14:05 | EKG ---
Test Reason : Blood Pressure : / mmHG Vent. Rate : 065 BPM Atrial Rate : 065 BPM P-R Int : 000 ms QRS Dur : 196 ms QT Int : 454 ms P-R-T Axes : 046 268 081 degrees QTc Int : 472 ms Ventricular-paced rhythm ABNORMAL ECG WHEN COMPARED WITH ECG OF 21-NOV-2019 12:19, ELECTRONIC VENTRICULAR PACEMAKER HAS REPLACED SINUS RHYTHM Confirmed by ERINN CARDOZA MD ([id number]) on 11/22/2019 2:05:14 PM Referred By: Confirmed By:ERINN CARDOZA MD
--- NOTE | 2019-11-22 14:09 | EKG ---
Test Reason : Blood Pressure : / mmHG Vent. Rate : 071 BPM Atrial Rate : 071 BPM P-R Int : 296 ms QRS Dur : 148 ms QT Int : 422 ms P-R-T Axes : 038 -60 121 degrees QTc Int : 458 ms SINUS RHYTHM WITH 1ST DEGREE A-V BLOCK POSSIBLE LEFT ATRIAL ENLARGEMENT LEFT AXIS DEVIATION RIGHT BUNDLE BRANCH BLOCK LEFT VENTRICULAR HYPERTROPHY WITH REPOLARIZATION ABNORMALITY INFERIOR INFARCT , AGE UNDETERMINED ABNORMAL ECG WHEN COMPARED WITH ECG OF 09-NOV-2019 13:22, SINUS RHYTHM HAS REPLACED ELECTRONIC VENTRICULAR PACEMAKER Confirmed by ERINN CARDOZA MD [id number]) on 11/22/2019 2:09:15 PM Referred By: Confirmed By:ERINN CARDOZA MD
[2019-11-22] MEDS ORDERED: LIDOCAINE HCL 1%, 10 MG/ML (20ML VIAL) ONE (14:39)
--- NOTE | 2019-11-22 15:10 | PROC ---
Central Line Insertion - Procedure Note TIME OUT performed prior to this procedure with verbal confirmation of correct patient identity, correct side, agreement of the procedure, correct patient position, availability of necessary equipment. The consent form is complete and accurate. Risk of possible infection, bleeding and pneumothorax have been discussed with the patient. Safety precautions based on patient history or medication use has been addressed. Indication: Other (Renal failure) Consent on Chart: Yes Central Line: Dialysis Cath, Dual Lumen Position: Supine Area prepped with Chlorhexidine solution then draped using sterile barrier protection. Anesthesia: Lidocaine 1% Technique used: Modified Seldinger Ultrasound Guided Assistance: Yes Site: Right Internal Jugular Dark venous non-pulsatile flow noted from hub of needle. The catheter was introduced. Guide wire removed intact. Each port aspirated then flushed with sterile normal saline and capped. Line secured to skin with silk suture. Biopatch placed around base of line. Sterile occlusive dressing applied. No complications. Patient tolerated the procedure well. STAT chest xray ordered to confirm position and rule out pneumothorax
--- NOTE | 2019-11-22 17:37 | PN ---
Progress Note, Physician History of Present Illness: Pt seen and examined at bedside. He is more awake today. He does complain of shortness of breath. He denies chest pain. Spoke to , she does not think that he got any contrast studies in [facility]. Pt was seen by Dr Rodriguez in the past, I called him and there are no outpt records for previous workup. He asked for me to continued seeing the pt on this admission. - Current Medication List Current Medications: Active Medications Fluticasone Propionate (Flonase -) 1 spray NS DAILY [facility] Sodium Chloride (Normal Saline -) 250 mls @ 3,000 mls/hr IV PRN PRN PRN Reason: Hypotension during Dialysis Stop: 11/23/19 08:05 Insulin Aspart (Novolog Vial Sliding Scale -) 1 vial SQ ACHS [facility]; Protocol Last Admin: 11/22/19 17:07 Dose: Not Given Metoprolol Succinate (Toprol Xl -) 25 mg PO BID [facility] Oxycodone HCl (Roxicodone -) 20 mg PO Q4H PRN PRN Reason: PAIN LEVEL 6-10 Last Admin: 11/22/19 14:03 Dose: 20 mg Pantoprazole Sodium (Protonix -) 40 mg PO DAILY [facility] Rosuvastatin Calcium (Crestor -) 20 mg PO DAILY [facility] Tamsulosin HCl (Flomax -) 0.4 mg PO DAILY@0830 [facility] Last Admin: 11/22/19 10:55 Dose: 0.4 mg - Objective Vital Signs: Vital Signs Temperature 98.7 F 11/22/19 14:00 Pulse Rate 68 11/22/19 14:00 Respiratory Rate 18 11/22/19 14:00 Blood Pressure 118/67 11/22/19 14:00 O2 Sat by Pulse Oximetry (%) 97 11/22/19 09:00 Constitutional: Yes: Calm Eyes: Yes: Conjunctiva Clear HENT: Yes: Atraumatic Neck: Yes: Supple Cardiovascular: Yes: S1, S2 Respiratory: Yes: On Nasal O2 Gastrointestinal: Yes: Soft Genitourinary: Yes: [place] Present Musculoskeletal: Yes: Back Pain Edema: No Neurological: Yes: Oriented Psychiatric: Yes: Oriented Labs: CBC, BMP 11/22/19 05:28 11/22/19 05:28 INR, PTT INR 1.11 (0.83-1.09) H 11/21/19 11:55 Problem List - Problems (1) Hyperkalemia Code(s): E87.5 - HYPERKALEMIA (2) Renal failure (ARF), acute on chronic Code(s): N17.9 - ACUTE KIDNEY FAILURE, UNSPECIFIED; N18.9 - CHRONIC KIDNEY DISEASE, UNSPECIFIED Qualifiers: Acute renal failure type: unspecified Chronic kidney disease stage: unspecified stage Qualified Code(s): N17.9 - Acute kidney failure, unspecified ; N18.9 - Chronic kidney disease, unspecified (3) Uremia Code(s): N19 - UNSPECIFIED KIDNEY FAILURE (4) BRANT (acute kidney injury) Code(s): N17.9 - ACUTE KIDNEY FAILURE, UNSPECIFIED (5) Abnormal chest x-ray Code(s): R93.8 - ABNORMAL FINDINGS ON DIAGNOSTIC IMAGING OF [place] * DO NOT USE * Assessment/Plan Current Medications Generic Name Dose Route Start Last Admin Trade Name Freq PRN Reason Stop Dose Admin Fluticasone Propionate 1 spray 11/23/19 10:00 Flonase - NS DAILY [facility] Sodium Chloride 250 mls @ 3,000 mls/hr 11/22/19 08:05 Normal Saline - IV 11/23/19 08:05 PRN PRN Hypotension during Dialysis Insulin Aspart 1 vial 11/21/19 16:30 11/22/19 17:07 Novolog Vial Sliding Scale - SQ Not Given ACHS [facility] Protocol Metoprolol Succinate 25 mg 11/22/19 22:00 Toprol Xl - PO BID [facility] Oxycodone HCl 20 mg 11/21/19 20:59 11/22/19 14:03 Roxicodone - PO 20 mg Q4H PRN Administration PAIN LEVEL 6-10 Pantoprazole Sodium 40 mg 11/23/19 10:00 Protonix - PO DAILY [facility] Rosuvastatin Calcium 20 mg 11/23/19 10:00 Crestor - PO DAILY [facility] Tamsulosin HCl 0.4 mg 11/22/19 08:30 11/22/19 10:55 Flomax - PO 0.4 mg DAILY@0830 [facility] Administration Laboratory Tests 11/21/19 11/21/19 11/22/19 20:45 21:05 05:28 Urine Protein 1+ H Urine Blood 3+ H Ur Random Sodium 24 L YANNA M-Santos Pending REGINALD Screen c-ANCA Proteinase 3 (PR3) p-ANCA Atypical p-ANCA Myeloperoxidase Ab Double Strand DNA Ab Glomerular Base Memb Ab Hep A IgM Ab Confirm Hepatitis A Ab Total Hep Bs Antigen Hep Bs Antibody Hep B Core Total Ab Hep B Core IgM Ab Hepatitis Be Antibody Hepatitis Be Antigen 11/22/19 05:28 Urine Protein Urine Blood Ur Random Sodium YANNA M-Santos REGINALD Screen Pending c-ANCA Pending Proteinase 3 (PR3) Pending p-ANCA Pending Atypical p-ANCA Pending Myeloperoxidase Ab Pending Double Strand DNA Ab Pending Glomerular Base Memb Ab Pending Hep A IgM Ab Confirm Pending Hepatitis A Ab Total Pending Hep Bs Antigen Pending Hep Bs Antibody Pending Hep B Core Total Ab Pending Hep B Core IgM Ab Pending Hepatitis Be Antibody Pending Hepatitis Be Antigen Pending Impression 1. BRANT 2. hyperkalemia 3. copd 4. chf 5. uremia 6. fluid overload 7. cva Plan - will arrange for HD today - follow serologic workup - monitor urine outpt - unclear when his last dose of aspirin was - possible kidney biopsy next week - discussed with medical team - pt does not appears grossly overloaded today - held lasix for now - evaluate for hd again tomorrow
[2019-11-22] MEDS: metoPROLOL SUCCINATE 25 MG TAB.SR.24H (FP) PO SCH (22:04)
[2019-11-22] MEDS ORDERED: MELATONIN 5 MG TABLETS PO ONE (22:49)
[2019-11-23] MEDS: oxyCODONE HCL 5 MG TABLET PO PRN ×6 (01:05→22:11)
[2019-11-23] MEDS: INSULIN SLIDING SCALE (NOVOLOG) 1 VIAL SQ SCH ×4 (06:35→22:10)
[2019-11-23 08:02] LABS: BASO % 0.7 % (0-2.0); EOS % 0.2 % (0-4.5); HEMATOCRIT 27.3 % (35.4-49); HEMOGLOBIN 8.9 GM/dL (11.7-16.9); LYMPH % 4.1 % (8-40); MCH 28.3 pg (25.7-33.7); MCHC 32.6 g/dl (32.0-35.9); MEAN CELL VOLUME 86.6 fl (80-96); MEAN PLT VOLUME 9.4 fl (7.5-11.1); MONO % 16.3 % (3.8-10.2); NEUT % 78.7 % (42.8-82.8); PLATELET COUNT 200 K/MM3 (134-434); RBC 3.15 M/mm3 (4.00-5.60); RDW 16.1 % (11.9-15.9); WHITE BLOOD COUNT 8.6 K/mm3 (4.0-10.0)
[2019-11-23 09:09] LABS: ALBUMIN 2.7 g/dl (3.4-5.0); BILIRUBIN,TOTAL 0.4 mg/dL (0.2-1); CALCIUM 8.2 mg/dL (8.5-10.1); POTASSIUM 4.5 mmol/L (3.5-5.1)
[2019-11-23] MEDS: PANTOPRAZOLE 40 MG TABLET PO SCH (09:15)
[2019-11-23] MEDS: FLUTICASONE PROP 0.05% 16 GM NASAL SPRAY NS SCH (09:15)
[2019-11-23] MEDS: metoPROLOL SUCCINATE 25 MG TAB.SR.24H (FP) PO SCH ×2 (09:15→22:11)
[2019-11-23] MEDS: TAMSULOSIN HCL 0.4 MG CAP PO SCH (09:15)
--- NOTE | 2019-11-23 09:19 | PN ---
Progress Note, Physician Chief Complaint: Comfortable Denies CP, SOB, palps. TELE: Paced. Rare VPCs Had HD yesterday History of Present Illness: weight down BP stable - Current Medication List Current Medications: Active Medications Fluticasone Propionate (Flonase -) 1 spray NS DAILY [facility] Last Admin: 11/23/19 09:15 Dose: 1 spray Sodium Chloride (Normal Saline -) 250 mls @ 3,000 mls/hr IV PRN PRN PRN Reason: Hypotension during Dialysis Stop: 11/23/19 08:05 Insulin Aspart (Novolog Vial Sliding Scale -) 1 vial SQ ACHS [facility]; Protocol Last Admin: 11/23/19 06:35 Dose: Not Given Metoprolol Succinate (Toprol Xl -) 25 mg PO BID [facility] Last Admin: 11/23/19 09:15 Dose: 25 mg Oxycodone HCl (Roxicodone -) 20 mg PO Q4H PRN PRN Reason: PAIN LEVEL 6-10 Last Admin: 11/23/19 09:15 Dose: 20 mg Pantoprazole Sodium (Protonix -) 40 mg PO DAILY [facility] Last Admin: 11/23/19 09:15 Dose: 40 mg Rosuvastatin Calcium (Crestor -) 20 mg PO DAILY [facility] Tamsulosin HCl (Flomax -) 0.4 mg PO DAILY@0830 [facility] Last Admin: 11/23/19 09:15 Dose: 0.4 mg - Objective Vital Signs: Vital Signs Temperature 98.2 F 11/23/19 09:13 Pulse Rate 61 11/23/19 09:13 Respiratory Rate 19 11/23/19 09:13 Blood Pressure 121/69 11/23/19 09:13 O2 Sat by Pulse Oximetry (%) 97 11/22/19 21:00 Constitutional: Yes: No Distress Cardiovascular: Yes: Regular Rate and Rhythm Respiratory: Yes: CTA Bilaterally Gastrointestinal: Yes: Soft, Abdomen, Obese Edema: No Neurological: Yes: Alert Labs: CBC, BMP 11/23/19 06:05 11/23/19 06:05 INR, PTT INR 1.11 (0.83-1.09) H 11/21/19 11:55 - ....Imaging EKG: Image Reviewed Assessment/Plan DATA: Echo 11/11/2019: Severe LV dysfunction, EF < 35%. Mild PHTN. AVS Lexiscan MPI 11/12/2019: Large fixed anterior wall, apical, distal septal and distal inferior wall scar. No ischemia, EF 31% [facility] 05/15: 70-80% mRCA (ISR), 70-80% RPDA (ISR); 70-80% mLAD; 80-90% pLCX (small vessel); 90-95% OM2 (large vessel); 80-90% prox Ramus (large vessel) ...nonobstructive dz of note [id number]% ostial RCA, 50-60% eccentric lesion OM1 (large vessel); EDP 30-->25 post-nitro EF 38% (diffuse WMAs) Syntax score 20 IMP: Acute on chronic renal failure now back on HD Hyperkalemia secondary to above. CAD s/p multiple MIs, PCIs and CABG (02/2019 at [facility]) Ischemic CM with chronic systolic systolic (LVEF < 35%) PAF, off AC secondary to recent GI bleeds (no source identified) PPM History of CVA REC: 1. HD resumed as per renal. AC was being held for prior GI bleeds (without identified source). Thus, can hold for kidney bx as recommended by renal. 2. Agree with holding Lisinopril in setting ARF/hyperK 3. Continue home statin and Metoprolol for chronic CAD/systolic CHF/AF (unless BP limits use). Hold ASA as renal bx is planned. 4. Pacemaker seems to be working appropriately on telemetry thus far; routine outpt interrogations. 5. [id number] score is high and AC is warranted; however, recent GIB here w/ drop in H/H and guaiac + stool that was not fully investigated with endoscopic evaluation ([facility]) as patient deemed high risk for scope and H/H stabilized. There is now also need for renal biopsy. Would continue to hold AC/ and ASA in this setting as risks>> benefits. Would try to resume low dose ASA with PPI after renal bx
--- NOTE | 2019-11-23 12:36 | PN ---
Progress Note (short form) - Note Progress Note: PULMONARY AWAKE/ALERT SUBJECTIVE IMPROVEMENT VSS/AFEBRILE Constitutional: Yes: No Distress, Calm Eyes: Yes: Conjunctiva Clear, EOM Intact HENT: Yes: Atraumatic, Normocephalic Neck: Yes: Supple, Trachea Midline Cardiovascular: Yes: Regular Rate and Rhythm Respiratory: Yes: Cough, Diminished, On Nasal O2, Rhonchi. No: Accessory Muscle Use, Rales, SOB, SOB on Exertion, Stridor, Tachypnea, Wheezes ...Inspection: Yes: WNL ...Clubbing: No Gastrointestinal: Yes: Normal Bowel Sounds, Soft Musculoskeletal: Yes: WNL Extremities: Yes: WNL Edema: Yes Peripheral Pulses WNL: Yes Integumentary: Yes: WNL Neurological: Yes: WNL, Alert, Oriented ...Motor Strength: WNL Psychiatric: Yes: WNL, Alert, Oriented Labs: NOTED Assessment/Plan IMP: COPD appears stable in not in AE Clinical condition likely due to Acute on CKD Suspected OSAS Renal evaluation noted O2 as needed Monitor off systemic steroids No smoking counseled Outpatient PFTs Will need sleep workup after discharge BD [place] PRN Will follow Justin ATKINS MD
[2019-11-23 12:53] LABS: OVALOCYTE 1+; PLATELET ESTIMATE ADEQUATE; TEAR DROP CELLS 1+
--- NOTE | 2019-11-23 17:40 | PN ---
Progress Note, Physician Chief Complaint: sob History of Present Illness: feeling ok, wants more pain meds for "pain everywhere" - Current Medication List Current Medications: Active Medications Fluticasone Propionate (Flonase -) 1 spray NS DAILY [facility] Last Admin: 11/23/19 09:15 Dose: 1 spray Sodium Chloride (Normal Saline -) 250 mls @ 3,000 mls/hr IV PRN PRN PRN Reason: Hypotension during Dialysis Stop: 11/23/19 08:05 Insulin Aspart (Novolog Vial Sliding Scale -) 1 vial SQ ACHS [facility]; Protocol Last Admin: 11/23/19 17:25 Dose: Not Given Metoprolol Succinate (Toprol Xl -) 25 mg PO BID [facility] Last Admin: 11/23/19 09:15 Dose: 25 mg Oxycodone HCl (Roxicodone -) 20 mg PO Q4H PRN PRN Reason: PAIN LEVEL 6-10 Last Admin: 11/23/19 17:24 Dose: 20 mg Pantoprazole Sodium (Protonix -) 40 mg PO DAILY [facility] Last Admin: 11/23/19 09:15 Dose: 40 mg Rosuvastatin Calcium (Crestor -) 20 mg PO DAILY [facility] Tamsulosin HCl (Flomax -) 0.4 mg PO DAILY@0830 [facility] Last Admin: 11/23/19 09:15 Dose: 0.4 mg - Objective Vital Signs: Vital Signs Temperature 99.0 F 11/23/19 14:00 Pulse Rate 63 11/23/19 14:00 Respiratory Rate 18 11/23/19 14:00 Blood Pressure 117/62 11/23/19 14:00 O2 Sat by Pulse Oximetry (%) 97 11/23/19 09:00 Constitutional: Yes: Well Nourished, No Distress, Calm Cardiovascular: Yes: WNL, Regular Rate and Rhythm Respiratory: Yes: WNL, Regular, CTA Bilaterally Gastrointestinal: Yes: WNL, Normal Bowel Sounds, Soft, Abdomen, Obese Musculoskeletal: Yes: WNL Edema: No Labs: CBC, BMP 11/23/19 06:05 11/23/19 06:05 INR, PTT INR 1.11 (0.83-1.09) H 11/21/19 11:55 Problem List - Problems (1) Atrial fibrillation Code(s): I48.91 - UNSPECIFIED ATRIAL FIBRILLATION (2) Hypercholesterolemia Code(s): E78.00 - PURE HYPERCHOLESTEROLEMIA, UNSPECIFIED (3) Hyperkalemia Code(s): E87.5 - HYPERKALEMIA (4) Renal failure (ARF), acute on chronic Code(s): N17.9 - ACUTE KIDNEY FAILURE, UNSPECIFIED; N18.9 - CHRONIC KIDNEY DISEASE, UNSPECIFIED Qualifiers: Acute renal failure type: unspecified Chronic kidney disease stage: unspecified stage Qualified Code(s): N17.9 - Acute kidney failure, unspecified ; N18.9 - Chronic kidney disease, unspecified (5) Type 2 diabetes mellitus Code(s): E11.9 - TYPE 2 DIABETES MELLITUS WITHOUT COMPLICATIONS (6) Acute on chronic systolic and diastolic heart failure, NYHA class 2 Code(s): I50.43 - ACUTE ON CHRONIC COMBINED SYSTOLIC AND DIASTOLIC HRT FAIL (7) Acute respiratory failure Code(s): J96.00 - ACUTE RESPIRATORY FAILURE, UNSP W HYPOXIA OR HYPERCAPNIA (8) CAD (coronary artery disease) Code(s): I25.10 - ATHSCL HEART DISEASE OF [place] CORONARY ARTERY W/O ANG PCTRS Qualifiers: [place] vs. transplanted heart: [place] heart Associated angina: without angina (9) Cardiomyopathy Code(s): I42.9 - CARDIOMYOPATHY, UNSPECIFIED Assessment/Plan ASSESSMENT: Acute on chronic renal failure/volume overload Hyperkalemia HTN HLD CAD S/P CABG Ischemic CMP Systolic CHF A. fib CVA hx PLAN: -had HD yesterday with improvement -renal serologies pending -possible kidney biopsy this week -ios and daily weights -cardio and renal following -c/w current meds -holding AC and asa due to recent GIB, did not have endoscopic eval ant [facility] due to high risk cardiac hx
[2019-11-23 20:07] LABS: HEP B CORE AB, TOT Negative (Negative)
[2019-11-24 06:25] LABS: BASO % 0.7 % (0-2.0); EOS % 0.2 % (0-4.5); HEMATOCRIT 28.9 % (35.4-49); HEMOGLOBIN 9.2 GM/dL (11.7-16.9); LYMPH % 3.7 % (8-40); MCHC 31.9 g/dl (32.0-35.9); MEAN CELL VOLUME 87.6 fl (80-96); MEAN PLT VOLUME 9.6 fl (7.5-11.1); MONO % 11.6 % (3.8-10.2); NEUT % 83.8 % (42.8-82.8); PLATELET COUNT 211 K/MM3 (134-434); RDW 15.9 % (11.9-15.9); WHITE BLOOD COUNT 11.9 K/mm3 (4.0-10.0)
[2019-11-24] MEDS: INSULIN SLIDING SCALE (NOVOLOG) 1 VIAL SQ SCH ×4 (06:50→21:02)
[2019-11-24 06:52] LABS: BLOOD UREA NITROGEN 76.7 mg/dL (7-18); CREATININE 5.2 mg/dL (0.55-1.3); POTASSIUM 4.2 mmol/L (3.5-5.1)
--- NOTE | 2019-11-24 09:24 | PN ---
Progress Note, Physician Chief Complaint: no CP, SOB, palps TELE: A-V paced. rare PVCS, short self limited run NSVT REGINALD and antiDS DNA + - Current Medication List Current Medications: Active Medications Fluticasone Propionate (Flonase -) 1 spray NS DAILY [facility] Last Admin: 11/23/19 09:15 Dose: 1 spray Sodium Chloride (Normal Saline -) 250 mls @ 3,000 mls/hr IV PRN PRN PRN Reason: Hypotension during Dialysis Stop: 11/23/19 08:05 Insulin Aspart (Novolog Vial Sliding Scale -) 1 vial SQ ACHS [facility]; Protocol Last Admin: 11/24/19 06:50 Dose: Not Given Metoprolol Succinate (Toprol Xl -) 25 mg PO BID [facility] Last Admin: 11/23/19 22:11 Dose: 25 mg Oxycodone HCl (Roxicodone -) 20 mg PO Q4H PRN PRN Reason: PAIN LEVEL 6-10 Last Admin: 11/23/19 22:11 Dose: 20 mg Pantoprazole Sodium (Protonix -) 40 mg PO DAILY [facility] Last Admin: 11/23/19 09:15 Dose: 40 mg Rosuvastatin Calcium (Crestor -) 20 mg PO DAILY [facility] Tamsulosin HCl (Flomax -) 0.4 mg PO DAILY@0830 [facility] Last Admin: 11/23/19 09:15 Dose: 0.4 mg - Objective Vital Signs: Vital Signs Temperature 99.4 F 11/24/19 06:00 Pulse Rate 65 11/24/19 06:00 Respiratory Rate 20 11/24/19 06:00 Blood Pressure 144/79 11/24/19 06:00 O2 Sat by Pulse Oximetry (%) 95 11/23/19 21:00 Constitutional: Yes: No Distress Cardiovascular: Yes: Regular Rate and Rhythm Respiratory: Yes: CTA Bilaterally Gastrointestinal: Yes: Soft (NT) Edema: No Neurological: Yes: Alert, Oriented Labs: CBC, BMP 11/24/19 05:30 11/24/19 05:30 INR, PTT INR 1.11 (0.83-1.09) H 11/21/19 11:55 Laboratory Tests 11/22/19 11/24/19 11/24/19 05:28 05:30 05:30 WBC 11.9 H Hgb 9.2 L Plt Count 211 Sodium 134 L Potassium 4.2 Creatinine 5.2 H REGINALD Screen Positive H REGINALD Homogeneous Pattern 1:320 H Double Strand DNA Ab 12 H Assessment/Plan DATA: Echo 11/11/2019: Severe LV dysfunction, EF < 35%. Mild PHTN. AVS Lexiscan MPI 11/12/2019: Large fixed anterior wall, apical, distal septal and distal inferior wall scar. No ischemia, EF 31% [facility] 05/15: 70-80% mRCA (ISR), 70-80% RPDA (ISR); 70-80% mLAD; 80-90% pLCX (small vessel); 90-95% OM2 (large vessel); 80-90% prox Ramus (large vessel) ...nonobstructive dz of note [id number]% ostial RCA, 50-60% eccentric lesion OM1 (large vessel); EDP 30-->25 post-nitro EF 38% (diffuse WMAs) Syntax score 20 IMP: Acute on chronic renal failure now back on HD Hyperkalemia secondary to above-resolved CAD s/p multiple MIs, PCIs and CABG (02/2019 at [facility]) Ischemic CM with chronic systolic systolic (LVEF < 35%) PAF, off AC secondary to recent GI bleeds (no source identified) PPM History of CVA ' +REGINALD/antiDS DNA REC: 1. HD resumed as per renal. AC was being held for prior GI bleeds (without identified source). Thus, can hold for kidney bx as recommended by renal. 2. Agree with holding Lisinopril in setting ARF/hyperK 3. Continue home statin and Metoprolol for chronic CAD/systolic CHF/AF (unless BP limits use). Hold ASA as renal bx is planned. 4. Pacemaker seems to be working appropriately on telemetry thus far; routine outpt interrogations. 5. [id number] score is high and AC is warranted; however, recent GIB here w/ drop in H/H and guaiac + stool that was not fully investigated with endoscopic evaluation ([facility]) as patient deemed high risk for scope and H/H stabilized. There is now also need for renal biopsy. Would continue to hold AC/ and ASA in this setting as risks>> benefits. Would try to resume low dose ASA with PPI after renal bx
[2019-11-24] MEDS: PANTOPRAZOLE 40 MG TABLET PO SCH (09:44)
[2019-11-24] MEDS: TAMSULOSIN HCL 0.4 MG CAP PO SCH (09:44)
[2019-11-24] MEDS: FLUTICASONE PROP 0.05% 16 GM NASAL SPRAY NS SCH (09:44)
[2019-11-24] MEDS: metoPROLOL SUCCINATE 25 MG TAB.SR.24H (FP) PO SCH ×2 (09:44→21:02)
--- NOTE | 2019-11-24 10:03 | PN ---
Progress Note (short form) - Note Progress Note: RENAL Pt seen yesterday but no note written dialysis was held he has no new complaints Last Vital Signs Temp Pulse Resp BP Pulse Ox 99.4 F 65 20 144/79 95 11/24/19 06:00 11/24/19 06:00 11/24/19 06:00 11/24/19 06:00 11/23/19 21:00 lungs clear cvs s1s2 rr abd soft ext no edema neuro a+ox3 CBC, BMP 11/24/19 05:30 11/24/19 05:30 Current Medications Generic Name Dose Route Start Last Admin Trade Name Freq PRN Reason Stop Dose Admin Fluticasone Propionate 1 spray 11/23/19 10:00 11/24/19 09:44 Flonase - NS 1 spray DAILY [facility] Administration Sodium Chloride 250 mls @ 3,000 mls/hr 11/22/19 08:05 Normal Saline - IV 11/23/19 08:05 PRN PRN Hypotension during Dialysis Insulin Aspart 1 vial 11/21/19 16:30 11/24/19 06:50 Novolog Vial Sliding Scale - SQ Not Given ACHS [facility] Protocol Metoprolol Succinate 25 mg 11/22/19 22:00 11/24/19 09:44 Toprol Xl - PO 25 mg BID [facility] Administration Oxycodone HCl 20 mg 11/21/19 20:59 11/23/19 22:11 Roxicodone - PO 20 mg Q4H PRN Administration PAIN LEVEL 6-10 Pantoprazole Sodium 40 mg 11/23/19 10:00 11/24/19 09:44 Protonix - PO 40 mg DAILY [facility] Administration Rosuvastatin Calcium 20 mg 11/23/19 10:00 Crestor - PO DAILY [facility] Tamsulosin HCl 0.4 mg 11/22/19 08:30 11/24/19 09:44 Flomax - PO 0.4 mg DAILY@0830 [facility] Administration Impression 1. BRANT 2. hyperkalemia 3. copd 4. chf 5. uremia 6. fluid overload 7. cva Plan -can be dialyzed again tomorrow -for possible biopsy this week -may give benigno if chf is compensated MV
--- NOTE | 2019-11-24 11:37 | PN ---
Progress Note (short form) - Note Progress Note: PULMONARY RESTING COMFORTABLY SUBJECTIVE IMPROVEMENT VSS/AFEBRILE Constitutional: Yes: No Distress, Calm Eyes: Yes: Conjunctiva Clear, EOM Intact HENT: Yes: Atraumatic, Normocephalic Neck: Yes: Supple, Trachea Midline Cardiovascular: Yes: Regular Rate and Rhythm Respiratory: Yes: Cough, Diminished, On Nasal O2, Rhonchi. No: Accessory Muscle Use, Rales, SOB, SOB on Exertion, Stridor, Tachypnea, Wheezes ...Inspection: Yes: WNL ...Clubbing: No Gastrointestinal: Yes: Normal Bowel Sounds, Soft Musculoskeletal: Yes: WNL Extremities: Yes: WNL Edema: Yes Peripheral Pulses WNL: Yes Integumentary: Yes: WNL Neurological: Yes: WNL, Alert, Oriented ...Motor Strength: WNL Psychiatric: Yes: WNL, Alert, Oriented Labs: NOTED Assessment/Plan IMP: COPD appears stable in not in AE Clinical condition likely due to Acute on CKD Suspected OSAS O2 as needed Monitor off systemic steroids No smoking counseled Outpatient PFTs Will need sleep workup after discharge BD [place] PRN Will follow Justin ATKINS MD
--- NOTE | 2019-11-24 14:48 | PN ---
Progress Note, Physician Chief Complaint: sob History of Present Illness: sleeping comfortably, no complaints, feeling better - Current Medication List Current Medications: Active Medications Epoetin [place] (Procrit -) 3,000 unit SQ ONCE ONE Stop: 11/24/19 10:05 Fluticasone Propionate (Flonase -) 1 spray NS DAILY [facility] Last Admin: 11/24/19 09:44 Dose: 1 spray Heparin Sodium (Porcine) (Heparin -) 1,000 unit IVPUSH ONCE ONE Stop: 11/24/19 10:05 Sodium Chloride (Normal Saline -) 250 mls @ 3,000 mls/hr IV PRN PRN PRN Reason: Hypotension during Dialysis Stop: 11/25/19 10:04 Insulin Aspart (Novolog Vial Sliding Scale -) [address] [facility]; Protocol Last Admin: 11/24/19 12:39 Dose: Not Given Metoprolol Succinate (Toprol Xl -) 25 mg PO BID [facility] Last Admin: 11/24/19 09:44 Dose: 25 mg Oxycodone HCl (Roxicodone -) 20 mg PO Q4H PRN PRN Reason: PAIN LEVEL 6-10 Last Admin: 11/23/19 22:11 Dose: 20 mg Pantoprazole Sodium (Protonix -) 40 mg PO DAILY [facility] Last Admin: 11/24/19 09:44 Dose: 40 mg Rosuvastatin Calcium (Crestor -) 20 mg PO DAILY [facility] Tamsulosin HCl (Flomax -) 0.4 mg PO DAILY@0830 [facility] Last Admin: 11/24/19 09:44 Dose: 0.4 mg - Objective Vital Signs: Vital Signs Temperature 98.0 F 11/24/19 14:00 Pulse Rate 60 11/24/19 14:00 Respiratory Rate 20 11/24/19 14:00 Blood Pressure 116/55 L 11/24/19 14:00 O2 Sat by Pulse Oximetry (%) 94 L 11/24/19 09:00 Constitutional: Yes: No Distress, Calm Cardiovascular: Yes: WNL, Regular Rate and Rhythm Respiratory: Yes: WNL, Regular, CTA Bilaterally Gastrointestinal: Yes: WNL, Normal Bowel Sounds, Soft, Abdomen, Obese Edema: No Labs: CBC, BMP 11/24/19 05:30 11/24/19 05:30 INR, PTT INR 1.11 (0.83-1.09) H 11/21/19 11:55 Problem List - Problems (1) Atrial fibrillation Code(s): I48.91 - UNSPECIFIED ATRIAL FIBRILLATION (2) Hypercholesterolemia Code(s): E78.00 - PURE HYPERCHOLESTEROLEMIA, UNSPECIFIED (3) Hyperkalemia Code(s): E87.5 - HYPERKALEMIA (4) Renal failure (ARF), acute on chronic Code(s): N17.9 - ACUTE KIDNEY FAILURE, UNSPECIFIED; N18.9 - CHRONIC KIDNEY DISEASE, UNSPECIFIED Qualifiers: Acute renal failure type: unspecified Chronic kidney disease stage: unspecified stage Qualified Code(s): N17.9 - Acute kidney failure, unspecified ; N18.9 - Chronic kidney disease, unspecified (5) Type 2 diabetes mellitus Code(s): E11.9 - TYPE 2 DIABETES MELLITUS WITHOUT COMPLICATIONS (6) Acute on chronic systolic and diastolic heart failure, NYHA class 2 Code(s): I50.43 - ACUTE ON CHRONIC COMBINED SYSTOLIC AND DIASTOLIC HRT FAIL (7) Acute respiratory failure Code(s): J96.00 - ACUTE RESPIRATORY FAILURE, UNSP W HYPOXIA OR HYPERCAPNIA (8) CAD (coronary artery disease) Code(s): I25.10 - ATHSCL HEART DISEASE OF [place] CORONARY ARTERY W/O ANG PCTRS Qualifiers: [place] vs. transplanted heart: [place] heart Associated angina: without angina (9) Cardiomyopathy Code(s): I42.9 - CARDIOMYOPATHY, UNSPECIFIED Assessment/Plan ASSESSMENT: Acute on chronic renal failure/volume overload Hyperkalemia HTN HLD CAD S/P CABG Ischemic CMP Systolic CHF A. fib CVA hx PLAN: -repeat HD in AM -renal serologies pending, so far REGINALD and DSDNA + -possible kidney biopsy this week -ios and daily weights -cardio and renal following -c/w current meds -holding AC and asa due to recent GIB, did not have endoscopic eval ant [facility] due to high risk cardiac hx
[2019-11-24] MEDS: oxyCODONE HCL 5 MG TABLET PO PRN (21:03)
[2019-11-25] MEDS: oxyCODONE HCL 5 MG TABLET PO PRN ×5 (04:12→22:59)
[2019-11-25] MEDS: INSULIN SLIDING SCALE (NOVOLOG) 1 VIAL SQ SCH ×4 (06:12→21:44)
[2019-11-25] MEDS ORDERED: SODIUM CHLORIDE 250 ML IV PRN (07:00)
[2019-11-25 07:12] LABS: BASO % 0.9 % (0-2.0); EOS % 0.2 % (0-4.5); HEMATOCRIT 26.7 % (35.4-49); HEMOGLOBIN 8.7 GM/dL (11.7-16.9); LYMPH % 4.8 % (8-40); MCH 28.4 pg (25.7-33.7); MCHC 32.7 g/dl (32.0-35.9); MEAN CELL VOLUME 86.7 fl (80-96); MEAN PLT VOLUME 9.5 fl (7.5-11.1); MONO % 10.3 % (3.8-10.2); NEUT % 83.8 % (42.8-82.8); PLATELET COUNT 195 K/MM3 (134-434); RBC 3.08 M/mm3 (4.00-5.60); RDW 16.1 % (11.9-15.9); WHITE BLOOD COUNT 10.2 K/mm3 (4.0-10.0)
--- NOTE | 2019-11-25 07:42 | PN ---
Teaching Attending Note Name of Resident: Ynes Conway ATTENDING PHYSICIAN STATEMENT I saw and evaluated the patient. I reviewed the resident's note and discussed the case with the resident. I agree with the resident's findings and plan as documented. SUBJECTIVE: Patient feels improved, no complaint of shortness of breath OBJECTIVE: Vital Signs Temperature 98.8 F 11/25/19 06:00 Pulse Rate 64 11/25/19 06:00 Respiratory Rate 20 11/25/19 06:00 Blood Pressure 123/63 11/25/19 06:00 O2 Sat by Pulse Oximetry (%) 95 11/24/19 21:00 General: Elderly man, disheveled not in distress HEENT; mucous membranes moist, no anemia, no jaundice, PERRLA, no nystagmus Neck: No JVD, supple, no bruit, thyroid palpably normal, normal carotid pulsations. Chest: Nontender, bilateral basal rales. CVS: S1-S2 regularno murmur/gallop/rub Abdomen: Nondistended, soft, bowel sounds present. Extremities: Bilateral edema., No cough tenderness, pulses present CHANGE ATTENDANT: AO X3 , no gross motor sensory deficit. Labs: 11/25/19 05:55 11/25/19 05:55 Echo 11/11/2019: Severe LV dysfunction, EF < 35%. Mild PHTN. AVS Lexiscan MPI 11/12/2019: Large fixed anterior wall, apical, distal septal and distal inferior wall scar. No ischemia, EF 31% Active Medications Epoetin [place] (Procrit -) 3,000 unit SQ ONCE ONE Stop: 11/25/19 09:01 Fluticasone Propionate (Flonase -) 1 spray NS DAILY [facility] Last Admin: 11/24/19 09:44 Dose: 1 spray Heparin Sodium (Porcine) (Heparin -) 1,000 unit IVPUSH ONCE ONE Stop: 11/25/19 09:01 Sodium Chloride (Normal Saline -) 250 mls @ 3,000 mls/hr IV PRN PRN PRN Reason: Hypotension during Dialysis Stop: 11/26/19 06:59 Insulin Aspart (Novolog Vial Sliding Scale -) 1 vial SQ ACHS [facility]; Protocol Last Admin: 11/25/19 06:12 Dose: Not Given Metoprolol Succinate (Toprol Xl -) 25 mg PO BID [facility] Last Admin: 11/24/19 21:02 Dose: 25 mg Oxycodone HCl (Roxicodone -) 20 mg PO Q4H PRN PRN Reason: PAIN LEVEL 6-10 Last Admin: 11/25/19 04:12 Dose: 20 mg Pantoprazole Sodium (Protonix -) 40 mg PO DAILY [facility] Last Admin: 11/24/19 09:44 Dose: 40 mg Rosuvastatin Calcium (Crestor -) 20 mg PO DAILY [facility] Tamsulosin HCl (Flomax -) 0.4 mg PO DAILY@0830 [facility] Last Admin: 11/24/19 09:44 Dose: 0.4 mg ASSESSMENT AND PLAN: 69-year-old man history of heart failure with reduced ejection fraction, CAD status post CABG 02/2019 ischemic cardiomyopathy systolic heart failure with reduced ejection fraction of 29%, at baseline CKD stage III, type 2 diabetes mellitus CVA, status post pacemaker, recently transferred to [facility] after treated at [facility] on November 09, 2019 patient was admitted with BRANT uremic encephalopathy, received 1 dialysis patient also has melena, after first dialysis renal functions and urine output was improved admitted with, acute renal failure with hyperkalemia currently on hemodialysis. Patient was discharged home from [facility] on apixaban 5 mg twice daily, as per discharge summary last creatinine was reported 1.5 and patient was on very small dose of lisinopril 2.5 mg daily. So far improving on hemodialysis considering recurrent BRANT requiring hemodialysis and patient REGINALD positive possibility of rheumatological process we will follow-up with rheumatology consult. Problem List - Problems (1) Renal failure (ARF), acute on chronic Assessment/Plan: Unclear etiology, evaluated by public utilities sales representative, currently on hemodialysis REGINALD positive as per discharge summary from [facility] last creatinine was 1.5 patient was on a very small dose of lisinopril 2.5 mg Code(s): N17.9 - ACUTE KIDNEY FAILURE, UNSPECIFIED; N18.9 - CHRONIC KIDNEY DISEASE, UNSPECIFIED Qualifiers: Acute renal failure type: unspecified Chronic kidney disease stage: unspecified stage Qualified Code(s): N17.9 - Acute kidney failure, unspecified ; N18.9 - Chronic kidney disease, unspecified (2) Acute on chronic systolic and diastolic heart failure, NYHA class 2 Assessment/Plan: Currently all medications are on hold we will follow-up cardiology recommendations. Code(s): I50.43 - ACUTE ON CHRONIC COMBINED SYSTOLIC AND DIASTOLIC HRT FAIL (3) CAD (coronary artery disease) Assessment/Plan: Status post cabg [place] February 2019, previously had black tarry stools, at present H&H stable, cardiology recommendation (appreciated considering low H&H, recent history of melena that was not evaluated by EGD and plan for renal biopsy aspirin is on hold. Will add beta-blockers and statin. Code(s): I25.10 - ATHSCL HEART DISEASE OF [place] CORONARY ARTERY W/O ANG PCTRS Qualifiers: [place] vs. transplanted heart: [place] heart Associated angina: without angina (4) Atrial fibrillation Assessment/Plan: Status post pacemaker, anticoagulation on hold for bleeding risk and plan for renal biopsy will continue beta-blockers for rate control Problems reviewed: Yes Code(s): I48.91 - UNSPECIFIED ATRIAL FIBRILLATION (5) Hypercholesterolemia Assessment/Plan: Continue statin continue Crestor 10 mg Code(s): E78.00 - PURE HYPERCHOLESTEROLEMIA, UNSPECIFIED (6) Type 2 diabetes mellitus Assessment/Plan: Continue correction dose insulin Code(s): E11.9 - TYPE 2 DIABETES MELLITUS WITHOUT COMPLICATIONS
[2019-11-25 07:52] LABS: BLOOD UREA NITROGEN 87.2 mg/dL (7-18); CALCIUM 8.1 mg/dL (8.5-10.1); CREATININE 5.1 mg/dL (0.55-1.3); POTASSIUM 4.4 mmol/L (3.5-5.1)
[2019-11-25] MEDS ORDERED: HEPARIN NA (PORCINE) 5,000 UNITS/ML 1ML VIAL IVPUSH ONE (09:00)
[2019-11-25] MEDS ORDERED: EPOETIN ALFA 3,000 UNIT/1 ML ML SQ ONE (09:00)
[2019-11-25] MEDS: PANTOPRAZOLE 40 MG TABLET PO SCH (10:58)
[2019-11-25] MEDS: TAMSULOSIN HCL 0.4 MG CAP PO SCH (10:58)
[2019-11-25] MEDS: metoPROLOL SUCCINATE 25 MG TAB.SR.24H (FP) PO SCH ×2 (10:58→21:44)
[2019-11-25] MEDS: FLUTICASONE PROP 0.05% 16 GM NASAL SPRAY NS SCH (10:59)
[2019-11-25 11:07] LABS: ANISOCYTOSIS 1+; MACROCYTOSIS 0; OVALOCYTE 1+; PLATELET ESTIMATE NORMAL; TEAR DROP CELLS 1+
--- NOTE | 2019-11-25 11:22 | PN ---
Progress Note, Physician Chief Complaint: malaise History of Present Illness: denies chest heaviness/pain denies sob, orthopnea no palp no leg swelling - Current Medication List Current Medications: Active Medications Fluticasone Propionate (Flonase -) 1 spray NS DAILY [facility] Last Admin: 11/25/19 10:59 Dose: Not Given Sodium Chloride (Normal Saline -) 250 mls @ 3,000 mls/hr IV PRN PRN PRN Reason: Hypotension during Dialysis Stop: 11/26/19 06:59 Insulin Aspart (Novolog Vial Sliding Scale -) 1 vial SQ ACHS [facility]; Protocol Last Admin: 11/25/19 06:12 Dose: Not Given Metoprolol Succinate (Toprol Xl -) 25 mg PO BID [facility] Last Admin: 11/25/19 10:58 Dose: 25 mg Oxycodone HCl (Roxicodone -) 20 mg PO Q4H PRN PRN Reason: PAIN LEVEL 6-10 Last Admin: 11/25/19 09:12 Dose: 20 mg Pantoprazole Sodium (Protonix -) 40 mg PO DAILY [facility] Last Admin: 11/25/19 10:58 Dose: 40 mg Rosuvastatin Calcium (Crestor -) 10 mg PO HS [facility] Tamsulosin HCl (Flomax -) 0.4 mg PO DAILY@0830 [facility] Last Admin: 11/25/19 10:58 Dose: 0.4 mg - Objective Vital Signs: Vital Signs Temperature 98.5 F 11/25/19 10:00 Pulse Rate 60 11/25/19 10:30 Respiratory Rate 18 11/25/19 10:30 Blood Pressure 139/68 11/25/19 10:30 O2 Sat by Pulse Oximetry (%) 96 11/25/19 09:00 Constitutional: Yes: Well Nourished, No Distress, Calm Cardiovascular: Yes: Regular Rate and Rhythm (decr intensity diffusely (copd)), S1, S2. No: JVD, Gallop, Murmur Respiratory: Yes: Regular, CTA Bilaterally. No: Accessory Muscle Use, Rales, Wheezes Extremities: No: Cold Edema: No Neurological: Yes: Alert, Oriented Psychiatric: No: Agitated Labs: CBC, BMP 11/25/19 05:55 11/25/19 05:55 INR, PTT INR 1.11 (0.83-1.09) H 11/21/19 11:55 Assessment/Plan Echo 11/11/2019: Severe LV dysfunction, EF < 35%. Mild PHTN. AVS Lexiscan MPI 11/12/2019: Large fixed anterior wall, apical, distal septal and distal inferior wall scar. No ischemia, EF 31% [facility] 05/15: 70-80% mRCA (ISR), 70-80% RPDA (ISR); 70-80% mLAD; 80-90% pLCX (small vessel); 90-95% OM2 (large vessel); 80-90% prox Ramus (large vessel) ...nonobstructive dz of note [id number]% ostial RCA, 50-60% eccentric lesion OM1 (large vessel); EDP 30-->25 post-nitro EF 38% (diffuse WMAs) Syntax score 20 tele: /AP, HELPER/DRIVER IMP: Acute on chronic renal failure now back on HD Hyperkalemia secondary to above-resolved CAD s/p multiple MIs, PCIs and CABG ([facility]no signs ACS here Ischemic CM with chronic systolic systolic (LVEF < 35%) PAF, off AC secondary to recent GI bleeds (no source identified) PPM History of CVA '1415 +REGINALD/antiDS DNA REC: -HD resumed as per renal. AC was being held for prior GI bleeds (without identified source). Thus, can hold for kidney bx as recommended by renal. -appears euvolemic, observe -Agree with holding Lisinopril in setting ARF/hyperK -Continue home statin and Metoprolol for chronic CAD/systolic CHF/AF (unless BP limits use). Hold ASA as renal bx is planned. -Pacemaker seems to be working appropriately on telemetry thus far; routine outpt interrogations. -[id number] score is high and AC is warranted; however, recent GIB here w/ drop in H/H and guaiac + stool that was not fully investigated with endoscopic evaluation ([facility]) as patient deemed high risk for scope and H/H stabilized. There is now also need for renal biopsy. Would continue to hold AC/ and ASA in this setting as risks>> benefits. Would try to resume low dose ASA with PPI after renal bx -d/c tele
--- NOTE | 2019-11-25 12:36 | PN ---
Progress Note, Physician History of Present Illness: Pt seen and examined at bedside. He is more awake today. He tolerated HD today. - Current Medication List Current Medications: Active Medications Fluticasone Propionate (Flonase -) 1 spray NS DAILY [facility] Last Admin: 11/25/19 10:59 Dose: Not Given Sodium Chloride (Normal Saline -) 250 mls @ 3,000 mls/hr IV PRN PRN PRN Reason: Hypotension during Dialysis Stop: 11/26/19 06:59 Insulin Aspart (Novolog Vial Sliding Scale -) 1 vial SQ ACHS [facility]; Protocol Last Admin: 11/25/19 11:50 Dose: Not Given Metoprolol Succinate (Toprol Xl -) 25 mg PO BID [facility] Last Admin: 11/25/19 10:58 Dose: 25 mg Oxycodone HCl (Roxicodone -) 20 mg PO Q4H PRN PRN Reason: PAIN LEVEL 6-10 Last Admin: 11/25/19 09:12 Dose: 20 mg Pantoprazole Sodium (Protonix -) 40 mg PO DAILY [facility] Last Admin: 11/25/19 10:58 Dose: 40 mg Rosuvastatin Calcium (Crestor -) [address] [facility] Tamsulosin HCl (Flomax -) 0.4 mg PO DAILY@0830 [facility] Last Admin: 11/25/19 10:58 Dose: 0.4 mg - Objective Vital Signs: Vital Signs Temperature 98.5 F 11/25/19 10:00 Pulse Rate 60 11/25/19 10:30 Respiratory Rate 18 11/25/19 10:30 Blood Pressure 139/68 11/25/19 10:30 O2 Sat by Pulse Oximetry (%) 96 11/25/19 09:00 Constitutional: Yes: Calm Eyes: Yes: Conjunctiva Clear HENT: Yes: Atraumatic Neck: Yes: Supple Cardiovascular: Yes: S1, S2 Respiratory: Yes: CTA Bilaterally Genitourinary: Yes: WNL Musculoskeletal: Yes: WNL Edema: No Neurological: Yes: Oriented Psychiatric: Yes: Oriented Labs: CBC, BMP 11/25/19 05:55 11/25/19 05:55 INR, PTT INR 1.11 (0.83-1.09) H 11/21/19 11:55 Problem List - Problems (1) Hyperkalemia Code(s): E87.5 - HYPERKALEMIA (2) Renal failure (ARF), acute on chronic Code(s): N17.9 - ACUTE KIDNEY FAILURE, UNSPECIFIED; N18.9 - CHRONIC KIDNEY DISEASE, UNSPECIFIED Qualifiers: Acute renal failure type: unspecified Chronic kidney disease stage: unspecified stage Qualified Code(s): N17.9 - Acute kidney failure, unspecified ; N18.9 - Chronic kidney disease, unspecified (3) Uremia Code(s): N19 - UNSPECIFIED KIDNEY FAILURE (4) BRANT (acute kidney injury) Code(s): N17.9 - ACUTE KIDNEY FAILURE, UNSPECIFIED (5) Abnormal chest x-ray Code(s): R93.8 - ABNORMAL FINDINGS ON DI[facility]NOSTIC [facility]ING OF [place] * DO NOT USE * Assessment/Plan Current Medications Generic Name Dose Route Start Last Admin Trade Name Freq PRN Reason Stop Dose Admin Fluticasone Propionate 1 spray 11/23/19 10:00 11/25/19 10:59 Flonase - NS Not Given DAILY [facility] Sodium Chloride 250 mls @ 3,000 mls/hr 11/25/19 07:00 Normal Saline - IV 11/26/19 06:59 PRN PRN Hypotension during Dialysis Insulin Aspart 1 vial 11/21/19 16:30 11/25/19 11:50 Novolog Vial Sliding Scale - SQ Not Given ACHS [facility] Protocol Metoprolol Succinate 25 mg 11/22/19 22:00 11/25/19 10:58 Toprol Xl - PO 25 mg BID [facility] Administration Oxycodone HCl 20 mg 11/25/19 04:07 11/25/19 09:12 Roxicodone - PO 20 mg Q4H PRN Administration PAIN LEVEL 6-10 Pantoprazole Sodium 40 mg 11/23/19 10:00 11/25/19 10:58 Protonix - PO 40 mg DAILY [facility] Administration Rosuvastatin Calcium 10 mg 11/25/19 22:00 Crestor - PO HS [facility] Tamsulosin HCl 0.4 mg 11/22/19 08:30 11/25/19 10:58 Flomax - PO 0.4 mg DAILY@0830 [facility] Administration Laboratory Tests 11/22/19 05:28 REGINALD Screen Positive H REGINALD Homogeneous Pattern 1:320 H c-ANCA Pending Proteinase 3 (PR3) Pending p-ANCA Pending Atypical p-ANCA Pending Myeloperoxidase Ab Pending Double Strand DNA Ab 12 H Glomerular Base Memb Ab Pending Impression 1. BRANT 2. hyperkalemia 3. copd 4. chf 5. uremia 6. fluid overload 7. cva Plan - follow serologies - discussed kidney biopsy with pt and , will order - HD today - last dose of aspirin was on the - cardio input appreciated
--- NOTE | 2019-11-25 14:43 | PN ---
Progress Note (short form) - Note Progress Note: PULMONARY Denies shortness of breath or chest pain. HD this AM. Vital Signs Period Temp Pulse Resp BP Sys/Chandra Pulse Ox Last 24 Hr 98.0 F-98.9 F 60-81 18-20 110-144/56-71 95-96 Gen: NAD at rest Heart: RRR Lung: decreased breath sounds at the bases Abd: soft, nontender Ext: no edema CBC, BMP 11/25/19 05:55 11/25/19 05:55 Active Medications Fluticasone Propionate (Flonase -) 1 spray NS DAILY [facility] Last Admin: 11/25/19 10:59 Dose: Not Given Sodium Chloride (Normal Saline -) 250 mls @ 3,000 mls/hr IV PRN PRN PRN Reason: Hypotension during Dialysis Stop: 11/26/19 06:59 Insulin Aspart (Novolog Vial Sliding Scale -) 1 vial SQ ACHS [facility]; Protocol Last Admin: 11/25/19 11:50 Dose: Not Given Metoprolol Succinate (Toprol Xl -) 25 mg PO BID [facility] Last Admin: 11/25/19 10:58 Dose: 25 mg Oxycodone HCl (Roxicodone -) 20 mg PO Q4H PRN PRN Reason: PAIN LEVEL 6-10 Last Admin: 11/25/19 13:54 Dose: 20 mg Pantoprazole Sodium (Protonix -) 40 mg PO DAILY [facility] Last Admin: 11/25/19 10:58 Dose: 40 mg Rosuvastatin Calcium (Crestor -) 10 mg PO HS [facility] Tamsulosin HCl (Flomax -) 0.4 mg PO DAILY@0830 [facility] Last Admin: 11/25/19 10:58 Dose: 0.4 mg A/P Acute on Chronic Renal Failure on HD Hyperkalemia CAD LV Systolic Dysfunction Paroxysmal Atrial Fibrillation COPD DM h/o PPM h/o CVA Anemia - HD per renal - rate control - monitor urine output, creatinine - O2 as needed - DVT prophylaxis
--- NOTE | 2019-11-25 15:08 | PN ---
Physical Exam: SUBJECTIVE: Patient seen and examined. Offers no new complaints. OBJECTIVE: Vital Signs Period Temp Pulse Resp BP Sys/Chandra Pulse Ox Last 24 Hr 98.0 F-98.9 F 60-81 18-20 110-144/56-71 95-96 GENERAL: in nad, comfortable in bed EYES: PERRL, conjunctiva clear. No ptosis. ENT: dry mucous membranes. Chest: vertical scar from CABG NECK: supple. LUNGS: decreased breath sounds HEART: RRR ABDOMEN: Soft, nontender, nondistended, normoactive bowel sounds EXTREMITIES: 2+ pulses, +edema Laboratory Results - last 24 hr 11/24/19 11/24/19 11/24/19 11:59 16:59 21:01 WBC RBC Hgb Hct MCV MCH MCHC RDW Plt Count MPV Absolute Neuts (auto) Neutrophils % Neutrophils % (Manual) Band Neutrophils % Lymphocytes % Lymphocytes % (Manual) Monocytes % Monocytes % (Manual) Eosinophils % Eosinophils % (Manual) Basophils % Basophils % (Manual) Myelocytes % (Man) Promyelocytes % (Man) Blast Cells % (Manual) Nucleated RBC % Metamyelocytes Hypochromia Platelet Estimate Platelet Comment Polychromasia Poikilocytosis Basophilic Stippling Anisocytosis Microcytosis Macrocytosis Spherocytes Tear Drop Cells Ovalocytes Stomatocytes Acanthocytes (Spur) Sodium Potassium Chloride Carbon Dioxide Anion Gap BUN Creatinine Est GFR (CKD-EPI)AfAm Est GFR (CKD-EPI)NonAf POC Glucometer 126 120 145 Random Glucose Calcium 11/25/19 11/25/19 11/25/19 04:49 05:55 05:55 WBC 10.2 H RBC 3.08 L Hgb 8.7 L Hct 26.7 L MCV 86.7 MCH 28.4 MCHC 32.7 RDW 16.1 H Plt Count 195 MPV 9.5 Absolute Neuts (auto) 8.6 H Neutrophils % 83.8 H Neutrophils % (Manual) 87.9 H Band Neutrophils % 1.0 Lymphocytes % 4.8 L D Lymphocytes % (Manual) 4.1 L D Monocytes % 10.3 H Monocytes % (Manual) 4 Eosinophils % 0.2 Eosinophils % (Manual) 1.0 Basophils % 0.9 Basophils % (Manual) 0.0 Myelocytes % (Man) 0 D Promyelocytes % (Man) 0 Blast Cells % (Manual) 0 Nucleated RBC % 0 Metamyelocytes 0 Hypochromia 0 Platelet Estimate Normal Platelet Comment Present Polychromasia 0 Poikilocytosis 1+ Basophilic Stippling 1+ Anisocytosis 1+ Microcytosis 1+ Macrocytosis 0 Spherocytes 1+ Tear Drop Cells 1+ Ovalocytes 1+ Stomatocytes 1+ Acanthocytes (Spur) 1+ Sodium 134 L Potassium 4.4 Chloride 99 Carbon Dioxide 25 Anion Gap 9 BUN 87.2 H Creatinine 5.1 H Est GFR (CKD-EPI)AfAm 12.19 Est GFR (CKD-EPI)NonAf 10.52 POC Glucometer 103 Random Glucose 91 Calcium 8.1 L 11/25/19 11:39 WBC RBC Hgb Hct MCV MCH MCHC RDW Plt Count MPV Absolute Neuts (auto) Neutrophils % Neutrophils % (Manual) Band Neutrophils % Lymphocytes % Lymphocytes % (Manual) Monocytes % Monocytes % (Manual) Eosinophils % Eosinophils % (Manual) Basophils % Basophils % (Manual) Myelocytes % (Man) Promyelocytes % (Man) Blast Cells % (Manual) Nucleated RBC % Metamyelocytes Hypochromia Platelet Estimate Platelet Comment Polychromasia Poikilocytosis Basophilic Stippling Anisocytosis Microcytosis Macrocytosis Spherocytes Tear Drop Cells Ovalocytes Stomatocytes Acanthocytes (Spur) Sodium Potassium Chloride Carbon Dioxide Anion Gap BUN Creatinine Est GFR (CKD-EPI)AfAm Est GFR (CKD-EPI)NonAf POC Glucometer 100 Random Glucose Calcium Active Medications Generic Name Dose Route Start Last Admin Trade Name Freq PRN Reason Stop Dose Admin Fluticasone Propionate 1 spray 11/23/19 10:00 11/25/19 10:59 Flonase - NS Not Given DAILY [facility] Sodium Chloride 250 mls @ 3,000 mls/hr 11/25/19 07:00 Normal Saline - IV 11/26/19 06:59 PRN PRN Hypotension during Dialysis Insulin Aspart 1 vial 11/21/19 16:30 11/25/19 11:50 Novolog Vial Sliding Scale - SQ Not Given ACHS [facility] Protocol Metoprolol Succinate 25 mg 11/22/19 22:00 11/25/19 10:58 Toprol Xl - PO 25 mg BID [facility] Administration Oxycodone HCl 20 mg 11/25/19 04:07 11/25/19 13:54 Roxicodone - PO 20 mg Q4H PRN Administration PAIN LEVEL 6-10 Pantoprazole Sodium 40 mg 11/23/19 10:00 11/25/19 10:58 Protonix - PO 40 mg DAILY [facility] Administration Rosuvastatin Calcium 10 mg 11/25/19 22:00 Crestor - PO HS [facility] Tamsulosin HCl 0.4 mg 11/22/19 08:30 11/25/19 10:58 Flomax - PO 0.4 mg DAILY@0830 [facility] Administration ASSESSMENT/PLAN: #Acute on chronic renal failure #CHF #HTN #CAD #Dyslipidemia #S/P CABG #PPM #Volume Overload #Atrial Fibrillation Plan: -Unclear etiology, evaluated by associate merchandiser, currently on hemodialysis REGINALD positive as per discharge summary from [facility] last creatinine was 1.5 patient was on a very small dose of lisinopril 2.5 mg -HD this am -plan for renal biopsy, hold AC -REGINALD and DSDNA + -Dupree -strict I/o's, daily weights -Lasix 40mg IV BID -Kidney bladder US noted -fu cardio, renal reccs -CXR with no acute changes -monitor vital signs -tele monitoring -FU am labs Visit type - Emergency Visit Emergency Visit: Yes ED Registration Date: 11/21/19 Care time: The patient presented to the Emergency Department on the above date and was hospitalized for further evaluation of their emergent condition. - New Patient This patient is new to me today: Yes Date on this admission: 11/25/19 - Critical Care Critical Care patient: No ATTENDING PHYSICIAN STATEMENT I saw and evaluated the patient. I reviewed the resident's note and discussed the case with the resident. I agree with the resident's findings and plan as documented. SUBJECTIVE: OBJECTIVE: ASSESSMENT AND PLAN:
[2019-11-25 16:07] LABS: ANTIGLOMERULAR BASEMENT MEN.AB 5 units (0-20)
[2019-11-25] MEDS: ROSUVASTATIN CA 10 MG TABLET (FP) PO SCH (21:44)
[2019-11-26] MEDS: oxyCODONE HCL 5 MG TABLET PO PRN ×5 (04:21→21:03)
[2019-11-26] MEDS: INSULIN SLIDING SCALE (NOVOLOG) 1 VIAL SQ SCH ×4 (06:37→21:11)
[2019-11-26 07:26] LABS: BASO % 0.7 % (0-2.0); EOS % 0.4 % (0-4.5); HEMATOCRIT 27.3 % (35.4-49); LYMPH % 5.8 % (8-40); MCH 28.4 pg (25.7-33.7); MCHC 32.8 g/dl (32.0-35.9); MEAN CELL VOLUME 86.6 fl (80-96); MEAN PLT VOLUME 9.5 fl (7.5-11.1); MONO % 10.4 % (3.8-10.2); NEUT % 82.7 % (42.8-82.8); PLATELET COUNT 213 K/MM3 (134-434); RBC 3.15 M/mm3 (4.00-5.60); WHITE BLOOD COUNT 10.2 K/mm3 (4.0-10.0)
[2019-11-26] MEDS ORDERED: ACETAMINOPHEN 325 MG TABLET (FP) PO ONE (08:08)
[2019-11-26 08:10] LABS: ALBUMIN 2.5 g/dl (3.4-5.0); BILIRUBIN,TOTAL 0.4 mg/dL (0.2-1); BLOOD UREA NITROGEN 53.3 mg/dL (7-18); CALCIUM 8.3 mg/dL (8.5-10.1); CREATININE 3.6 mg/dL (0.55-1.3); TOT PROT 5.8 g/dl (6.4-8.2)
--- NOTE | 2019-11-26 08:17 | PN ---
Teaching Attending Note Name of Resident: Ynes Conway ATTENDING PHYSICIAN STATEMENT I saw and evaluated the patient. I reviewed the resident's note and discussed the case with the resident. I agree with the resident's findings and plan as documented. SUBJECTIVE: No new complaint OBJECTIVE: Vital Signs Temperature 98.9 F 11/26/19 06:00 Pulse Rate 60 11/26/19 06:00 Respiratory Rate 20 11/26/19 06:00 Blood Pressure 143/75 11/26/19 06:00 O2 Sat by Pulse Oximetry (%) 95 11/25/19 21:00 General: Elderly man, disheveled not in distress HEENT; mucous membranes moist, no anemia, no jaundice, PERRLA, no nystagmus Neck: No JVD, supple, no bruit, thyroid palpably normal, normal carotid pulsations. Chest: Nontender, bilateral basal rales. CVS: S1-S2 regular no murmur/gallop/rub Abdomen: Nondistended, soft, bowel sounds present. 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 Labs: CBC, BMP 11/26/19 05:55 11/26/19 05:55 Active Medications Fluticasone Propionate (Flonase -) 1 spray NS DAILY [facility] Last Admin: 11/25/19 10:59 Dose: Not Given Insulin Aspart (Novolog Vial Sliding Scale -) 1 vial SQ ACHS [facility]; Protocol Last Admin: 11/26/19 06:37 Dose: Not Given Metoprolol Succinate (Toprol Xl -) 25 mg PO BID [facility] Last Admin: 11/25/19 21:44 Dose: 25 mg Oxycodone HCl (Roxicodone -) 20 mg PO Q4H PRN PRN Reason: PAIN LEVEL 6-10 Last Admin: 11/26/19 04:21 Dose: 20 mg Pantoprazole Sodium (Protonix -) 40 mg PO DAILY [facility] Last Admin: 11/25/19 10:58 Dose: 40 mg Rosuvastatin Calcium (Crestor -) 10 mg PO HS [facility] Last Admin: 11/25/19 21:44 Dose: 10 mg Tamsulosin HCl (Flomax -) 0.4 mg PO DAILY@0830 [facility] Last Admin: 11/25/19 10:58 Dose: 0.4 mg Echo 11/11/2019: Severe LV dysfunction, EF < 35%. Mild PHTN. AVS Lexiscan MPI 11/12/2019: Large fixed anterior wall, apical, distal septal and distal inferior wall scar. No ischemia, EF 31% ASSESSMENT AND PLAN: 69-year-old man history of heart failure with reduced ejection fraction, CAD status post CABG 02/2019 ischemic cardiomyopathy systolic heart failure with reduced ejection fraction of 29%, at baseline CKD stage III, type 2 diabetes mellitus CVA, status post pacemaker, recently transferred to [facility] after treated at [facility] on November 09, 2019 patient was admitted with BRANT uremic encephalopathy, received 1 dialysis patient also has melena, after first dialysis renal functions and urine output was improved admitted with, acute renal failure with hyperkalemia currently on hemodialysis. Patient was discharged home from [facility] on apixaban 5 mg twice daily, as per discharge summary last creatinine was reported 1.5 and patient was on very small dose of lisinopril 2.5 mg daily. So far improving on hemodialysis considering recurrent BRANT requiring hemodialysis and patient REGINALD and double-stranded DNA positive possibility of rheumatological process, we will follow-up with rheumatology consult. Problem List - Problems (1) Renal failure (ARF), acute on chronic Assessment/Plan: Unclear etiology, evaluated by tar heel, currently on hemodialysis REGINALD positive as per discharge summary from [facility] last creatinine was 1.5 patient was on a very small dose of lisinopril 2.5 mg Code(s): N17.9 - ACUTE KIDNEY FAILURE, UNSPECIFIED; N18.9 - CHRONIC KIDNEY DISEASE, UNSPECIFIED Qualifiers: Acute renal failure type: unspecified Chronic kidney disease stage: unspecified stage Qualified Code(s): N17.9 - Acute kidney failure, unspecified ; N18.9 - Chronic kidney disease, unspecified (2) Acute on chronic systolic and diastolic heart failure, NYHA class 2 Assessment/Plan: Currently all medications are on hold we will follow-up cardiology recommendations. Code(s): I50.43 - ACUTE ON CHRONIC COMBINED SYSTOLIC AND DIASTOLIC HRT FAIL (3) CAD (coronary artery disease) Assessment/Plan: Status post cabg IN February 2019, previously had black tarry stools, at present H&H stable, cardiology recommendation (appreciated considering low H&H, recent history of melena that was not evaluated by EGD and plan for renal biopsy aspirin is on hold. Will add beta-blockers and statin. Problems reviewed: Yes Code(s): I25.10 - ATHSCL HEART DISEASE OF [place] CORONARY ARTERY W/O ANG PCTRS Qualifiers: [place] vs. transplanted heart: [place] heart Associated angina: without angina (4) Atrial fibrillation Assessment/Plan: Status post pacemaker, anticoagulation on hold for bleeding risk and plan for renal biopsy will continue beta-blockers for rate control Code(s): I48.91 - UNSPECIFIED ATRIAL FIBRILLATION (5) Hypercholesterolemia Assessment/Plan: Continue statin continue Crestor 10 mg Code(s): E78.00 - PURE HYPERCHOLESTEROLEMIA, UNSPECIFIED (6) Type 2 diabetes mellitus Assessment/Plan: Continue correction dose insulin Code(s): E11.9 - TYPE 2 DIABETES MELLITUS WITHOUT COMPLICATIONS
[2019-11-26] MEDS: TAMSULOSIN HCL 0.4 MG CAP PO SCH (08:22)
--- NOTE | 2019-11-26 09:29 | PN ---
Physical Exam: SUBJECTIVE: Patient seen and examined. No events overnight. Offers no new complaints OBJECTIVE: Vital Signs Period Temp Pulse Resp BP Sys/Chandra Pulse Ox Last 24 Hr 98.5 F-98.9 F 59-81 18-20 124-144/56-75 95 GENERAL: in nad, comfortable in bed EYES: PERRL, conjunctiva clear. No ptosis. ENT: dry mucous membranes. Chest: vertical scar from CABG NECK: supple. LUNGS: decreased breath sounds HEART: RRR ABDOMEN: Soft, nontender, nondistended, normoactive bowel sounds EXTREMITIES: 2+ pulses, +edema Laboratory Results - last 24 hr 11/22/19 11/22/19 11/25/19 05:28 05:28 05:55 WBC RBC Hgb Hct MCV MCH MCHC RDW Plt Count MPV Absolute Neuts (auto) Neutrophils % Neutrophils % (Manual) 87.9 H Band Neutrophils % 1.0 Lymphocytes % Lymphocytes % (Manual) 4.1 L D Monocytes % Monocytes % (Manual) 4 Eosinophils % Eosinophils % (Manual) 1.0 Basophils % Basophils % (Manual) 0.0 Myelocytes % (Man) 0 D Promyelocytes % (Man) 0 Blast Cells % (Manual) 0 Nucleated RBC % 0 Metamyelocytes 0 Hypochromia 0 Platelet Estimate Normal Platelet Comment Present Polychromasia 0 Poikilocytosis 1+ Basophilic Stippling 1+ Anisocytosis 1+ Microcytosis 1+ Macrocytosis 0 Spherocytes 1+ Tear Drop Cells 1+ Ovalocytes 1+ Stomatocytes 1+ Acanthocytes (Spur) 1+ Sodium Potassium Chloride Carbon Dioxide Anion Gap BUN Creatinine Est GFR (CKD-EPI)AfAm Est GFR (CKD-EPI)NonAf POC Glucometer Random Glucose Calcium Total Bilirubin AST ALT Alkaline Phosphatase Total Protein Total Protein (PEP) 5.3 L Albumin Albumin (PEP) 2.7 L Globulin 2.6 Albumin/Globulin Ratio 1.0 Beta Globulins 0.6 L YANNA M-Santos Not observed Glomerular Base Memb Ab 5 11/25/19 11/25/19 11/25/19 11:39 16:29 21:42 WBC RBC Hgb Hct MCV MCH MCHC RDW Plt Count MPV Absolute Neuts (auto) Neutrophils % Neutrophils % (Manual) Band Neutrophils % Lymphocytes % Lymphocytes % (Manual) Monocytes % Monocytes % (Manual) Eosinophils % Eosinophils % (Manual) Basophils % Basophils % (Manual) Myelocytes % (Man) Promyelocytes % (Man) Blast Cells % (Manual) Nucleated RBC % Metamyelocytes Hypochromia Platelet Estimate Platelet Comment Polychromasia Poikilocytosis Basophilic Stippling Anisocytosis Microcytosis Macrocytosis Spherocytes Tear Drop Cells Ovalocytes Stomatocytes Acanthocytes (Spur) Sodium Potassium Chloride Carbon Dioxide Anion Gap BUN Creatinine Est GFR (CKD-EPI)AfAm Est GFR (CKD-EPI)NonAf POC Glucometer 100 135 107 Random Glucose Calcium Total Bilirubin AST ALT Alkaline Phosphatase Total Protein Total Protein (PEP) Albumin Albumin (PEP) Globulin Albumin/Globulin Ratio Beta Globulins YANNA M-Santos Glomerular Base Memb Ab 11/26/19 11/26/19 11/26/19 05:55 05:55 06:35 WBC 10.2 H RBC 3.15 L Hgb 9.0 L Hct 27.3 L MCV 86.6 MCH 28.4 MCHC 32.8 RDW 16.0 H Plt Count 213 MPV 9.5 Absolute Neuts (auto) 8.5 H Neutrophils % 82.7 Neutrophils % (Manual) Band Neutrophils % Lymphocytes % 5.8 L D Lymphocytes % (Manual) Monocytes % 10.4 H Monocytes % (Manual) Eosinophils % 0.4 D Eosinophils % (Manual) Basophils % 0.7 Basophils % (Manual) Myelocytes % (Man) Promyelocytes % (Man) Blast Cells % (Manual) Nucleated RBC % 0 Metamyelocytes Hypochromia Platelet Estimate Platelet Comment Polychromasia Poikilocytosis Basophilic Stippling Anisocytosis Microcytosis Macrocytosis Spherocytes Tear Drop Cells Ovalocytes Stomatocytes Acanthocytes (Spur) Sodium 136 Potassium 4.0 Chloride 101 Carbon Dioxide 29 Anion Gap 7 L BUN 53.3 H Creatinine 3.6 H Est GFR (CKD-EPI)AfAm 18.57 Est GFR (CKD-EPI)NonAf 16.02 POC Glucometer 108 Random Glucose 105 Calcium 8.3 L Total Bilirubin 0.4 AST 8 L ALT 13 Alkaline Phosphatase 81 Total Protein 5.8 L Total Protein (PEP) Albumin 2.5 L Albumin (PEP) Globulin Albumin/Globulin Ratio Beta Globulins YANNA M-Santos Glomerular Base Memb Ab Active Medications Generic Name Dose Route Start Last Admin Trade Name Freq PRN Reason Stop Dose Admin Fluticasone Propionate 1 spray 11/23/19 10:00 11/25/19 10:59 Flonase - NS Not Given DAILY [facility] Insulin Aspart 1 vial 11/21/19 16:30 11/26/19 06:37 Novolog Vial Sliding Scale - SQ Not Given ACHS [facility] Protocol Metoprolol Succinate 25 mg 11/22/19 22:00 11/25/19 21:44 Toprol Xl - PO 25 mg BID [facility] Administration Oxycodone HCl 20 mg 11/25/19 04:07 11/26/19 08:22 Roxicodone - PO 20 mg Q4H PRN Administration PAIN LEVEL 6-10 Pantoprazole Sodium 40 mg 11/23/19 10:00 11/25/19 10:58 Protonix - PO 40 mg DAILY [facility] Administration Rosuvastatin Calcium 10 mg 11/25/19 22:00 11/25/19 21:44 Crestor - PO 10 mg HS [facility] Administration Tamsulosin HCl 0.4 mg 11/22/19 08:30 11/26/19 08:22 Flomax - PO 0.4 mg DAILY@0830 [facility] Administration ASSESSMENT/PLAN: #Acute on chronic renal failure #CHF #HTN #CAD #Dyslipidemia #S/P CABG #PPM #Volume Overload #Atrial Fibrillation Plan: -Unclear etiology, evaluated by oil well pumper, currently on hemodialysis REGINALD positive as per discharge summary from [facility] last creatinine was 1.5 patient was on a very small dose of lisinopril 2.5 mg -last HD yesterday -plan for renal biopsy today, hold AC -REGINALD and DSDNA + -will get rheum consult. -Dupree -strict I/o's, daily weights -Lasix 40mg IV BID -Kidney bladder US noted -fu cardio, renal reccs -CXR with no acute changes -monitor vital signs -tele monitoring -FU am labs Visit type - Emergency Visit Emergency Visit: Yes ED Registration Date: 11/21/19 Care time: The patient presented to the Emergency Department on the above date and was hospitalized for further evaluation of their emergent condition. - New Patient This patient is new to me today: Yes Date on this admission: 11/26/19 - Critical Care Critical Care patient: No ATTENDING PHYSICIAN STATEMENT I saw and evaluated the patient. I reviewed the resident's note and discussed the case with the resident. I agree with the resident's findings and plan as documented. SUBJECTIVE: OBJECTIVE: ASSESSMENT AND PLAN:
[2019-11-26] MEDS: metoPROLOL SUCCINATE 25 MG TAB.SR.24H (FP) PO SCH ×2 (09:33→21:04)
[2019-11-26] MEDS: FLUTICASONE PROP 0.05% 16 GM NASAL SPRAY NS SCH (09:33)
[2019-11-26] MEDS: PANTOPRAZOLE 40 MG TABLET PO SCH (09:33)
[2019-11-26 11:20] LABS: ANISOCYTOSIS 1+; MACROCYTOSIS 0; PLATELET ESTIMATE NORMAL
--- NOTE | 2019-11-26 11:53 | PN ---
Progress Note (short form) - Note Progress Note: s: no chest pain, palps, dizziness, dyspnea Current Medications Fluticasone Propionate (Flonase -) 1 spray NS DAILY [facility] Last Admin: 11/26/19 09:33 Dose: Not Given Insulin Aspart (Novolog Vial Sliding Scale -) 1 vial SQ ACHS [facility]; Protocol Last Admin: 11/26/19 11:35 Dose: Not Given Metoprolol Succinate (Toprol Xl -) 25 mg PO BID [facility] Last Admin: 11/26/19 09:33 Dose: 25 mg Oxycodone HCl (Roxicodone -) 20 mg PO Q4H PRN PRN Reason: PAIN LEVEL 6-10 Last Admin: 11/26/19 08:22 Dose: 20 mg Pantoprazole Sodium (Protonix -) 40 mg PO DAILY [facility] Last Admin: 11/26/19 09:33 Dose: 40 mg Rosuvastatin Calcium (Crestor -) 10 mg PO HS [facility] Last Admin: 11/25/19 21:44 Dose: 10 mg Tamsulosin HCl (Flomax -) 0.4 mg PO DAILY@0830 [facility] Last Admin: 11/26/19 08:22 Dose: 0.4 mg Vital Signs Period Temp Pulse Resp BP Sys/Chandra Pulse Ox Last 24 Hr 98.5 F-98.9 F 59-81 18-20 126-144/56-75 95-95 Constitutional: Yes: Well Nourished, No Distress, Calm Cardiovascular: Yes: Regular Rate and Rhythm (decr intensity diffusely (copd)), S1, S2. No: JVD, Gallop, Murmur Respiratory: Yes: Regular, CTA Bilaterally. No: Accessory Muscle Use, Rales, Wheezes Extremities: No: Cold Edema: No Neurological: Yes: Alert, Oriented Psychiatric: No: Agitated Assessment/Plan Echo 11/11/2019: Severe LV dysfunction, EF < 35%. Mild PHTN. AVS Lexiscan MPI 11/12/2019: Large fixed anterior wall, apical, distal septal and distal inferior wall scar. No ischemia, EF 31% [facility] 05/15: 70-80% mRCA (ISR), 70-80% RPDA (ISR); 70-80% mLAD; 80-90% pLCX (small vessel); 90-95% OM2 (large vessel); 80-90% prox Ramus (large vessel) ...nonobstructive dz of note [id number]% ostial RCA, 50-60% eccentric lesion OM1 (large vessel); EDP 30-->25 post-nitro EF 38% (diffuse WMAs) Syntax score 20 IMP: Acute on chronic renal failure now back on HD Hyperkalemia secondary to above-resolved CAD s/p multiple MIs, PCIs and CABG (02/[address] [facility])--no signs ACS here Ischemic CM with chronic systolic systolic (LVEF < 35%) PAF, off AC secondary to recent GI bleeds (no source identified) PPM History of CVA +REGINALD/antiDS DNA REC: -HD resumed as per renal. AC was being held for prior GI bleeds (without identified source). Thus, can hold for kidney bx as recommended by renal. -appears euvolemic, observe -Agree with holding Lisinopril in setting ARF/hyperK -Continue home statin and Metoprolol for chronic CAD/systolic CHF/AF (unless BP limits use). Hold ASA as renal bx is planned. -Pacemaker seems to be working appropriately on telemetry thus far; routine outpt interrogations. -[id number] score is high and AC is warranted; however, recent GIB here w/ drop in H/H and guaiac + stool that was not fully investigated with endoscopic evaluation ([facility]) as patient deemed high risk for scope and H/H stabilized. There is now also need for renal biopsy. Would continue to hold AC/ and ASA in this setting as risks>> benefits. Would try to resume low dose ASA with PPI after renal bx
--- NOTE | 2019-11-26 13:08 | PN ---
Progress Note (short form) - Note Progress Note: PULMONARY Denies shortness of breath or chest pain. Vital Signs Period Temp Pulse Resp BP Sys/Chandra Pulse Ox Last 24 Hr 98.5 F-98.9 F 59-81 18-20 126-144/56-75 95-95 Intake & Output 11/23/19 11/24/19 11/25/19 11/26/19 23:59 23:59 23:59 23:59 Intake Total 675 611 2810 Output Total 1200 300 200 300 Balance -531 417 8719 -300 Weight 82.735 kg Gen: NAD at rest Heart: RRR Lung: decreased breath sounds at the bases Abd: soft, nontender Ext: no edema CBC, BMP 11/26/19 05:55 11/26/19 05:55 Active Medications Fluticasone Propionate (Flonase -) 1 spray NS DAILY [facility] Last Admin: 11/26/19 09:33 Dose: Not Given Insulin Aspart (Novolog Vial Sliding Scale -) 1 vial SQ ACHS [facility]; Protocol Last Admin: 11/26/19 11:35 Dose: Not Given Metoprolol Succinate (Toprol Xl -) 25 mg PO BID [facility] Last Admin: 11/26/19 09:33 Dose: 25 mg Oxycodone HCl (Roxicodone -) 20 mg PO Q4H PRN PRN Reason: PAIN LEVEL 6-10 Last Admin: 11/26/19 12:21 Dose: 20 mg Pantoprazole Sodium (Protonix -) 40 mg PO DAILY [facility] Last Admin: 11/26/19 09:33 Dose: 40 mg Rosuvastatin Calcium (Crestor -) 10 mg PO HS [facility] Last Admin: 11/25/19 21:44 Dose: 10 mg Tamsulosin HCl (Flomax -) 0.4 mg PO DAILY@0830 [facility] Last Admin: 11/26/19 08:22 Dose: 0.4 mg A/P Acute on Chronic Renal Failure on HD Hyperkalemia CAD LV Systolic Dysfunction Paroxysmal Atrial Fibrillation COPD DM h/o PPM h/o CVA Anemia - HD per renal - rate control - monitor urine output, creatinine - O2 as needed - DVT prophylaxis
[2019-11-26 16:07] LABS: ATYPICAL pANCA <1:20 titer (Neg:<1:20); C-ANCA <1:20 titer (Neg:<1:20)
[2019-11-26] MEDS: ACETAMINOPHEN 325 MG TABLET (FP) PO PRN ×2 (17:38→21:03)
[2019-11-26] MEDS ORDERED: SODIUM CHLORIDE 250 ML IV PRN (18:20)
--- NOTE | 2019-11-26 18:20 | PN ---
Progress Note, Physician History of Present Illness: Pt seen and examined at bedside. He is awake and alert. He denies shortness of breath. - Current Medication List Current Medications: Active Medications Acetaminophen (Tylenol -) 650 mg PO Q4H PRN PRN Reason: PAIN LEVEL 6-10 Last Admin: 11/26/19 17:38 Dose: 650 mg Fluticasone Propionate (Flonase -) 1 spray NS DAILY [facility] Last Admin: 11/26/19 09:33 Dose: Not Given Insulin Aspart (Novolog Vial Sliding Scale -) 1 vial SQ ACHS [facility]; Protocol Last Admin: 11/26/19 17:00 Dose: Not Given Metoprolol Succinate (Toprol Xl -) 25 mg PO BID [facility] Last Admin: 11/26/19 09:33 Dose: 25 mg Oxycodone HCl (Roxicodone -) 20 mg PO Q4H PRN PRN Reason: PAIN LEVEL 6-10 Last Admin: 11/26/19 16:27 Dose: 20 mg Pantoprazole Sodium (Protonix -) 40 mg PO DAILY [facility] Last Admin: 11/26/19 09:33 Dose: 40 mg Rosuvastatin Calcium (Crestor -) 10 mg PO HS [facility] Last Admin: 11/25/19 21:44 Dose: 10 mg Tamsulosin HCl (Flomax -) 0.4 mg PO DAILY@0830 [facility] Last Admin: 11/26/19 08:22 Dose: 0.4 mg - Objective Vital Signs: Vital Signs Temperature 98.1 F 11/26/19 15:19 Pulse Rate 69 11/26/19 15:19 Respiratory Rate 18 11/26/19 15:19 Blood Pressure 144/69 11/26/19 15:19 O2 Sat by Pulse Oximetry (%) 95 11/26/19 08:50 Constitutional: Yes: Calm Eyes: Yes: Conjunctiva Clear HENT: Yes: Atraumatic Neck: Yes: Supple Cardiovascular: Yes: S1, S2 Respiratory: Yes: CTA Bilaterally Gastrointestinal: Yes: Soft Genitourinary: Yes: Dupree Present Musculoskeletal: Yes: WNL Edema: Yes Edema: LLE: Trace, RLE: Trace Neurological: Yes: Oriented Psychiatric: Yes: Oriented Labs: CBC, BMP 11/26/19 05:55 11/26/19 05:55 INR, PTT INR 1.11 (0.83-1.09) H 11/21/19 11:55 Problem List - Problems (1) Hyperkalemia Code(s): E87.5 - HYPERKALEMIA (2) Renal failure (ARF), acute on chronic Code(s): N17.9 - ACUTE KIDNEY FAILURE, UNSPECIFIED; N18.9 - CHRONIC KIDNEY DISEASE, UNSPECIFIED Qualifiers: Acute renal failure type: unspecified Chronic kidney disease stage: unspecified stage Qualified Code(s): N17.9 - Acute kidney failure, unspecified ; N18.9 - Chronic kidney disease, unspecified (3) Uremia Code(s): N19 - UNSPECIFIED KIDNEY FAILURE (4) BRANT (acute kidney injury) Code(s): N17.9 - ACUTE KIDNEY FAILURE, UNSPECIFIED (5) Abnormal chest x-ray Code(s): R93.8 - ABNORMAL FINDINGS ON DIAGNOSTIC IMAGING OF [place] * DO NOT USE * Assessment/Plan Current Medications Generic Name Dose Route Start Last Admin Trade Name Freq PRN Reason Stop Dose Admin Acetaminophen 650 mg 11/26/19 15:13 11/26/19 17:38 Tylenol - PO 650 mg Q4H PRN Administration PAIN LEVEL 6-10 Fluticasone Propionate 1 spray 11/23/19 10:00 11/26/19 09:33 Flonase - NS Not Given DAILY [facility] Insulin Aspart 1 vial 11/21/19 16:30 11/26/19 17:00 Novolog Vial Sliding Scale - SQ Not Given ACHS [facility] Protocol Metoprolol Succinate 25 mg 11/22/19 22:00 11/26/19 09:33 Toprol Xl - PO 25 mg BID [facility] Administration Oxycodone HCl 20 mg 11/25/19 04:07 11/26/19 16:27 Roxicodone - PO 20 mg Q4H PRN Administration PAIN LEVEL 6-10 Pantoprazole Sodium 40 mg 11/23/19 10:00 11/26/19 09:33 Protonix - PO 40 mg DAILY [facility] Administration Rosuvastatin Calcium 10 mg 11/25/19 22:00 11/25/19 21:44 Crestor - PO 10 mg HS [facility] Administration Tamsulosin HCl 0.4 mg 11/22/19 08:30 11/26/19 08:22 Flomax - PO 0.4 mg DAILY@0830 [facility] Administration Impression 1. BRANT 2. hyperkalemia 3. copd 4. chf 5. uremia 6. fluid overload 7. cva Plan - called pharmacy, pt did not get any aspirin on this admission - IR for kidney biopsy - HD tomorrow - follow serologies - last dose of aspirin was on the (per ) - cardio input appreciated
[2019-11-26] MEDS: ROSUVASTATIN CA 10 MG TABLET (FP) PO SCH (21:04)
[2019-11-27] MEDS: ACETAMINOPHEN 325 MG TABLET (FP) PO PRN ×6 (01:33→22:00)
[2019-11-27] MEDS: oxyCODONE HCL 5 MG TABLET PO PRN ×6 (01:35→22:00)
[2019-11-27 07:14] LABS: EOS % 1.2 % (0-4.5); HEMATOCRIT 27.4 % (35.4-49); HEMOGLOBIN 8.9 GM/dL (11.7-16.9); LYMPH % 8.6 % (8-40); MCH 28.3 pg (25.7-33.7); MCHC 32.4 g/dl (32.0-35.9); MEAN CELL VOLUME 87.2 fl (80-96); MEAN PLT VOLUME 9.4 fl (7.5-11.1); MONO % 10.1 % (3.8-10.2); NEUT % 79.1 % (42.8-82.8); PLATELET COUNT 219 K/MM3 (134-434); RBC 3.14 M/mm3 (4.00-5.60); RDW 15.5 % (11.9-15.9); WHITE BLOOD COUNT 8.1 K/mm3 (4.0-10.0)
[2019-11-27] MEDS: INSULIN SLIDING SCALE (NOVOLOG) 1 VIAL SQ SCH ×4 (07:14→21:59)
[2019-11-27 07:42] LABS: ALBUMIN 2.4 g/dl (3.4-5.0); BILIRUBIN,TOTAL 0.5 mg/dL (0.2-1); BLOOD UREA NITROGEN 51.8 mg/dL (7-18); CALCIUM 8.5 mg/dL (8.5-10.1); CREATININE 3.3 mg/dL (0.55-1.3); POTASSIUM 3.8 mmol/L (3.5-5.1); TOT PROT 5.6 g/dl (6.4-8.2)
[2019-11-27] MEDS: TAMSULOSIN HCL 0.4 MG CAP PO SCH (08:28)
--- NOTE | 2019-11-27 09:01 | PN ---
Teaching Attending Note Name of Resident: Ynes Conway ATTENDING PHYSICIAN STATEMENT I saw and evaluated the patient. I reviewed the resident's note and discussed the case with the resident. I agree with the resident's findings and plan as documented. SUBJECTIVE: Remains asymptomatic OBJECTIVE: Vital Signs Temperature 98 F 11/27/19 02:00 Pulse Rate 72 11/27/19 06:00 Respiratory Rate 18 11/27/19 06:00 Blood Pressure 147/77 11/27/19 06:00 O2 Sat by Pulse Oximetry (%) 96 11/26/19 21:00 General: Elderly man, disheveled not in distress HEENT; mucous membranes moist, no anemia, no jaundice, PERRLA, no nystagmus Neck: No JVD, supple, no bruit, thyroid palpably normal, normal carotid pulsations. Chest: Nontender, bilateral basal rales. CVS: S1-S2 regular no murmur/gallop/rub Abdomen: Nondistended, soft, bowel sounds present. Extremities: Bilateral edema., No cough tenderness, pulses present MOTH EXTERMINATOR: AO X3 , no gross motor sensory deficit. CBC, BMP 11/27/19 06:05 11/27/19 06:05 Active Medications Acetaminophen (Tylenol -) 650 mg PO Q4H PRN PRN Reason: PAIN LEVEL 6-10 Last Admin: 11/27/19 05:15 Dose: 650 mg Fluticasone Propionate (Flonase -) 1 spray NS DAILY [facility] Last Admin: 11/26/19 09:33 Dose: Not Given Sodium Chloride (Normal Saline -) 250 mls @ 3,000 mls/hr IV PRN PRN PRN Reason: Hypotension during Dialysis Stop: 11/27/19 18:20 Insulin Aspart (Novolog Vial Sliding Scale -) 1 vial SQ ACHS [facility]; Protocol Last Admin: 11/27/19 07:14 Dose: Not Given Metoprolol Succinate (Toprol Xl -) 25 mg PO BID [facility] Last Admin: 11/26/19 21:04 Dose: 25 mg Oxycodone HCl (Roxicodone -) 20 mg PO Q4H PRN PRN Reason: PAIN LEVEL 6-10 Last Admin: 11/27/19 05:16 Dose: 20 mg Pantoprazole Sodium (Protonix -) 40 mg PO DAILY [facility] Last Admin: 11/26/19 09:33 Dose: 40 mg Rosuvastatin Calcium (Crestor -) 10 mg PO HS [facility] Last Admin: 11/26/19 21:04 Dose: 10 mg Tamsulosin HCl (Flomax -) 0.4 mg PO DAILY@0830 [facility] Last Admin: 11/27/19 08:28 Dose: 0.4 mg ASSESSMENT AND PLAN:69-year-old man history of HFrEF CAD status post CABG 2018 ischemic cardiomyopathy ejection fraction of 29%, at baseline CKD stage III, type 2 diabetes mellitus CVA, status post pacemaker, recently transferred to [facility] after treated at [facility] on November 09, 2019 patient was admitted with BRANT uremic encephalopathy, received 1 dialysis patient also has melena, after first dialysis renal functions and urine output was improved admitted with, acute renal failure with hyperkalemia currently on hemodialysis.Patient was discharged home from [facility] on apixaban 5 mg twice daily, as per discharge summary last creatinine was reported 1.5 and patient was on very small dose of lisinopril 2.5 mg daily. So far improving on hemodialysis considering recurrent BRANT requiring hemodialysis and patient REGINALD and double-stranded DNA positive possibility of rheumatological process, we will follow-up with rheumatology consult. PLAN: F/U IR for renal biopsy Problem List - Problems (1) Renal failure (ARF), acute on chronic Assessment/Plan: Unclear etiology, evaluated by transition mgr, currently on hemodialysis REGINALD positive as per discharge summary from [facility] last creatinine was 1.5 patient was on a very small dose of lisinopril 2.5 mg, patient is scheduled for renal biopsy Code(s): N17.9 - ACUTE KIDNEY FAILURE, UNSPECIFIED; N18.9 - CHRONIC KIDNEY DISEASE, UNSPECIFIED Qualifiers: Acute renal failure type: unspecified Chronic kidney disease stage: unspecified stage Qualified Code(s): N17.9 - Acute kidney failure, unspecified ; N18.9 - Chronic kidney disease, unspecified (2) Acute on chronic systolic and diastolic heart failure, NYHA class 2 Assessment/Plan: On hemodialysis, beta-emmett, lisinopril on hold Code(s): I50.43 - ACUTE ON CHRONIC COMBINED SYSTOLIC AND DIASTOLIC HRT FAIL (3) CAD (coronary artery disease) Assessment/Plan: Status post cabg IN February 2019, previously had black tarry stools, at present H&H stable, Continue beta-blockers and statin. Off ASA Code(s): I25.10 - ATHSCL HEART DISEASE OF [place] CORONARY ARTERY W/O ANG PCTRS Qualifiers: [place] vs. transplanted heart: [place] heart Associated angina: without angina (4) Atrial fibrillation Assessment/Plan: Status post pacemaker, anticoagulation on hold for bleeding risk and plan for renal biopsy will continue beta-blockers for rate control Code(s): I48.91 - UNSPECIFIED ATRIAL FIBRILLATION (5) Hypercholesterolemia Assessment/Plan: Continue statin continue Crestor 10 mg Code(s): E78.00 - PURE HYPERCHOLESTEROLEMIA, UNSPECIFIED (6) Type 2 diabetes mellitus Assessment/Plan: Continue correction dose insulin Code(s): E11.9 - TYPE 2 DIABETES MELLITUS WITHOUT COMPLICATIONS
[2019-11-27] MEDS ORDERED: PT OWN MED DRAWER 7, Y5N ONE (09:11)
[2019-11-27] MEDS: PANTOPRAZOLE 40 MG TABLET PO SCH (09:13)
[2019-11-27] MEDS: metoPROLOL SUCCINATE 25 MG TAB.SR.24H (FP) PO SCH ×2 (09:15→21:59)
[2019-11-27] MEDS: FLUTICASONE PROP 0.05% 16 GM NASAL SPRAY NS SCH (09:19)
[2019-11-27 11:10] LABS: ANISOCYTOSIS 1+; MACROCYTOSIS 0; OVALOCYTE 1+; PLATELET ESTIMATE NORMAL; TEAR DROP CELLS 1+; TOXIC GRANULATION 1+
--- NOTE | 2019-11-27 12:07 | PN ---
Progress Note (short form) - Note Progress Note: s: no chest pain, palps, dizziness, dyspnea Current Medications Acetaminophen (Tylenol -) 650 mg PO Q4H PRN PRN Reason: PAIN LEVEL 6-10 Last Admin: 11/27/19 09:17 Dose: 650 mg Fluticasone Propionate (Flonase -) 1 spray NS DAILY [facility] Last Admin: 11/27/19 09:19 Dose: Not Given Sodium Chloride (Normal Saline -) 250 mls @ 3,000 mls/hr IV PRN PRN PRN Reason: Hypotension during Dialysis Stop: 11/27/19 18:20 Insulin Aspart (Novolog Vial Sliding Scale -) 1 vial SQ ACHS [facility]; Protocol Last Admin: 11/27/19 07:14 Dose: Not Given Metoprolol Succinate (Toprol Xl -) 25 mg PO BID [facility] Last Admin: 11/27/19 09:15 Dose: 25 mg Oxycodone HCl (Roxicodone -) 20 mg PO Q4H PRN PRN Reason: PAIN LEVEL 6-10 Last Admin: 11/27/19 09:15 Dose: 20 mg Pantoprazole Sodium (Protonix -) 40 mg PO DAILY [facility] Last Admin: 11/27/19 09:13 Dose: 40 mg Rosuvastatin Calcium (Crestor -) 10 mg PO HS [facility] Last Admin: 11/26/19 21:04 Dose: 10 mg Tamsulosin HCl (Flomax -) 0.4 mg PO DAILY@0830 [facility] Last Admin: 11/27/19 08:28 Dose: 0.4 mg Vital Signs Period Temp Pulse Resp BP Sys/Chandra Pulse Ox Last 24 Hr 98 F-98.1 F 60-72 18-20 135-147/63-77 96 Constitutional: Yes: Well Nourished, No Distress, Calm Cardiovascular: Yes: Regular Rate and Rhythm (decr intensity diffusely (copd)), S1, S2. No: JVD, Gallop, Murmur Respiratory: Yes: Regular, CTA Bilaterally. No: Accessory Muscle Use, Rales, Wheezes Extremities: No: Cold Edema: No Neurological: Yes: Alert, Oriented Psychiatric: No: Agitated no jaundice, diaphoresis Assessment/Plan Echo 11/11/2019: Severe LV dysfunction, EF < 35%. Mild PHTN. AVS Lexiscan MPI 11/12/2019: Large fixed anterior wall, apical, distal septal and distal inferior wall scar. No ischemia, EF 31% [facility] 05/15: 70-80% mRCA (ISR), 70-80% RPDA (ISR); 70-80% mLAD; 80-90% pLCX (small vessel); 90-95% OM2 (large vessel); 80-90% prox Ramus (large vessel) ...nonobstructive dz of note [id number]% ostial RCA, 50-60% eccentric lesion OM1 (large vessel); EDP 30-->25 post-nitro EF 38% (diffuse WMAs) Syntax score 20 IMP: Acute on chronic renal failure now back on HD Hyperkalemia secondary to above-resolved CAD s/p multiple MIs, PCIs and CABG (02/2019 at [facility])--no signs ACS here Ischemic CM with chronic systolic systolic (LVEF < 35%) PAF, off AC secondary to recent GI bleeds (no source identified) PPM History of CVA +REGINALD/antiDS DNA REC: -HD as per renal. AC was being held for prior GI bleeds (without identified source). Thus, can hold for kidney bx as recommended by renal. -appears euvolemic, observe -Agree with holding Lisinopril in setting ARF/hyperK -Continue home statin and Metoprolol for chronic CAD/systolic CHF/AF (unless BP limits use). Hold ASA as renal bx is planned. -Pacemaker seems to be working appropriately on telemetry thus far; routine outpt interrogations. -[id number] score is high and AC is warranted; however, recent GIB here w/ drop in H/H and guaiac + stool that was not fully investigated with endoscopic evaluation ([facility]) as patient deemed high risk for scope and H/H stabilized. There is now also need for renal biopsy. Would continue to hold AC/ and ASA in this setting as risks>> benefits. Would try to resume low dose ASA with PPI after renal bx
--- NOTE | 2019-11-27 12:27 | PN ---
Progress Note, Physician History of Present Illness: Pt seen and examined at bedside. He is awake and alert. He denies shortness of breath. - Current Medication List Current Medications: Active Medications Acetaminophen (Tylenol -) 650 mg PO Q4H PRN PRN Reason: PAIN LEVEL 6-10 Last Admin: 11/27/19 09:17 Dose: 650 mg Fluticasone Propionate (Flonase -) 1 spray NS DAILY [facility] Last Admin: 11/27/19 09:19 Dose: Not Given Sodium Chloride (Normal Saline -) 250 mls @ 3,000 mls/hr IV PRN PRN PRN Reason: Hypotension during Dialysis Stop: 11/27/19 18:20 Insulin Aspart (Novolog Vial Sliding Scale -) 1 vial SQ ACHS [facility]; Protocol Last Admin: 11/27/19 07:14 Dose: Not Given Metoprolol Succinate (Toprol Xl -) 25 mg PO BID [facility] Last Admin: 11/27/19 09:15 Dose: 25 mg Oxycodone HCl (Roxicodone -) 20 mg PO Q4H PRN PRN Reason: PAIN LEVEL 6-10 Last Admin: 11/27/19 09:15 Dose: 20 mg Pantoprazole Sodium (Protonix -) 40 mg PO DAILY [facility] Last Admin: 11/27/19 09:13 Dose: 40 mg Rosuvastatin Calcium (Crestor -) 10 mg PO HS [facility] Last Admin: 11/26/19 21:04 Dose: 10 mg Tamsulosin HCl (Flomax -) 0.4 mg PO DAILY@0830 [facility] Last Admin: 11/27/19 08:28 Dose: 0.4 mg - Objective Vital Signs: Vital Signs Temperature 98.0 F 11/27/19 10:00 Pulse Rate 60 11/27/19 10:00 Respiratory Rate 20 11/27/19 10:00 Blood Pressure 146/69 11/27/19 10:00 O2 Sat by Pulse Oximetry (%) 96 11/26/19 21:00 Constitutional: Yes: Calm Eyes: Yes: Conjunctiva Clear HENT: Yes: Atraumatic Cardiovascular: Yes: S1, S2 Respiratory: Yes: CTA Bilaterally Gastrointestinal: Yes: Soft Genitourinary: Yes: WNL Musculoskeletal: Yes: Back Pain Edema: No Neurological: Yes: Oriented Psychiatric: Yes: Oriented Labs: CBC, BMP 11/27/19 06:05 11/27/19 06:05 INR, PTT INR 1.11 (0.83-1.09) H 11/21/19 11:55 Problem List - Problems (1) Hyperkalemia Code(s): E87.5 - HYPERKALEMIA (2) Renal failure (ARF), acute on chronic Code(s): N17.9 - ACUTE KIDNEY FAILURE, UNSPECIFIED; N18.9 - CHRONIC KIDNEY DISEASE, UNSPECIFIED Qualifiers: Acute renal failure type: unspecified Chronic kidney disease stage: unspecified stage Qualified Code(s): N17.9 - Acute kidney failure, unspecified ; N18.9 - Chronic kidney disease, unspecified (3) Uremia Code(s): N19 - UNSPECIFIED KIDNEY FAILURE (4) BRANT (acute kidney injury) Code(s): N17.9 - ACUTE KIDNEY FAILURE, UNSPECIFIED (5) Abnormal chest x-ray Code(s): R93.8 - ABNORMAL FINDINGS ON DIAGNOSTIC IMAGING OF [place] * DO NOT USE * Assessment/Plan Current Medications Generic Name Dose Route Start Last Admin Trade Name Freq PRN Reason Stop Dose Admin Acetaminophen 650 mg 11/26/19 15:13 11/27/19 09:17 Tylenol - PO 650 mg Q4H PRN Administration PAIN LEVEL 6-10 Fluticasone Propionate 1 spray 11/23/19 10:00 11/27/19 09:19 Flonase - NS Not Given DAILY [facility] Sodium Chloride 250 mls @ 3,000 mls/hr 11/26/19 18:20 Normal Saline - IV 11/27/19 18:20 PRN PRN Hypotension during Dialysis Insulin Aspart 1 vial 11/21/19 16:30 11/27/19 07:14 Novolog Vial Sliding Scale - SQ Not Given ACHS [facility] Protocol Metoprolol Succinate 25 mg 11/22/19 22:00 11/27/19 09:15 Toprol Xl - PO 25 mg BID [facility] Administration Oxycodone HCl 20 mg 11/25/19 04:07 11/27/19 09:15 Roxicodone - PO 20 mg Q4H PRN Administration PAIN LEVEL 6-10 Pantoprazole Sodium 40 mg 11/23/19 10:00 11/27/19 09:13 Protonix - PO 40 mg DAILY [facility] Administration Rosuvastatin Calcium 10 mg 11/25/19 22:00 11/26/19 21:04 Crestor - PO 10 mg HS [facility] Administration Tamsulosin HCl 0.4 mg 11/22/19 08:30 11/27/19 08:28 Flomax - PO 0.4 mg DAILY@0830 [facility] Administration Laboratory Tests 11/22/19 05:28 REGINALD Screen Positive H REGINALD Homogeneous Pattern 1:320 H Proteinase 3 (PR3) <3.5 p-ANCA 1:40 H Atypical p-ANCA <1:20 Myeloperoxidase Ab 80.2 H Double Strand DNA Ab 12 H Glomerular Base Memb Ab 5 Impression 1. BRANT 2. hyperkalemia 3. copd 4. chf 5. uremia 6. fluid overload 7. cva Plan - pt scheduled for kidney biopsy today - hold off HD today as renal function is improving - rheum eval - will need tissue sample - pt off of aspirin - monitor hg - follow serologies - will evaluate for HD again tomorrow
--- NOTE | 2019-11-27 13:04 | PN ---
Physical Exam: SUBJECTIVE: Patient seen and examined. no events overnight. offers no new complaints OBJECTIVE: Vital Signs Period Temp Pulse Resp BP Sys/Chandra Pulse Ox Last 24 Hr 98 F-98.1 F 60-72 13-20 135-170/63-97 96-100 GENERAL: in nad, comfortable in bed EYES: PERRL, conjunctiva clear. No ptosis. ENT: dry mucous membranes. Chest: vertical scar from CABG NECK: supple. LUNGS: decreased breath sounds HEART: RRR ABDOMEN: Soft, nontender, nondistended, normoactive bowel sounds EXTREMITIES: 2+ pulses, +edema Laboratory Results - last 24 hr 11/22/19 11/26/19 11/26/19 05:28 05:55 16:57 WBC RBC Hgb Hct MCV MCH MCHC RDW Plt Count MPV Absolute Neuts (auto) Neutrophils % Neutrophils % (Manual) Band Neutrophils % Lymphocytes % Lymphocytes % (Manual) Monocytes % Monocytes % (Manual) Eosinophils % Eosinophils % (Manual) Basophils % Basophils % (Manual) Myelocytes % (Man) Promyelocytes % (Man) Blast Cells % (Manual) Nucleated RBC % Metamyelocytes Hypochromia Toxic Granulation Platelet Estimate Platelet Comment Polychromasia Poikilocytosis Basophilic Stippling Anisocytosis Microcytosis Macrocytosis Tear Drop Cells Ovalocytes Acanthocytes (Spur) Sodium Potassium Chloride Carbon Dioxide Anion Gap BUN Creatinine Est GFR (CKD-EPI)AfAm Est GFR (CKD-EPI)NonAf POC Glucometer 107 Random Glucose Calcium Total Bilirubin AST ALT Alkaline Phosphatase Total Protein Albumin c-ANCA <1:20 Proteinase 3 (PR3) <3.5 p-ANCA 1:40 H Atypical p-ANCA <1:20 Myeloperoxidase Ab 80.2 H Hep C Ab Diagnostic 0.1 Blood Type Antibody Screen 11/26/19 11/27/19 11/27/19 21:10 06:05 06:05 WBC 8.1 RBC 3.14 L Hgb 8.9 L Hct 27.4 L MCV 87.2 MCH 28.3 MCHC 32.4 RDW 15.5 Plt Count 219 MPV 9.4 Absolute Neuts (auto) 6.4 Neutrophils % 79.1 Neutrophils % (Manual) 77.0 Band Neutrophils % 2.0 Lymphocytes % 8.6 D Lymphocytes % (Manual) 7.0 L D Monocytes % 10.1 Monocytes % (Manual) 10 D Eosinophils % 1.2 D Eosinophils % (Manual) 0.0 Basophils % 1.0 Basophils % (Manual) 0.0 Myelocytes % (Man) 0 D Promyelocytes % (Man) 0 Blast Cells % (Manual) 0 Nucleated RBC % 0 Metamyelocytes 0 Hypochromia 0 Toxic Granulation 1+ Platelet Estimate Normal Platelet Comment Present Polychromasia 0 Poikilocytosis 1+ Basophilic Stippling 1+ Anisocytosis 1+ Microcytosis 1+ Macrocytosis 0 Tear Drop Cells 1+ Ovalocytes 1+ Acanthocytes (Spur) 1+ Sodium 140 Potassium 3.8 Chloride 102 Carbon Dioxide 30 Anion Gap 8 BUN 51.8 H Creatinine 3.3 H Est GFR (CKD-EPI)AfAm 20.63 Est GFR (CKD-EPI)NonAf 17.80 POC Glucometer 177 Random Glucose 80 Calcium 8.5 Total Bilirubin 0.5 AST 11 L ALT 11 L Alkaline Phosphatase 79 Total Protein 5.6 L Albumin 2.4 L c-ANCA Proteinase 3 (PR3) p-ANCA Atypical p-ANCA Myeloperoxidase Ab Hep C Ab Diagnostic Blood Type Antibody Screen 11/27/19 11/27/19 06:05 07:13 WBC RBC Hgb Hct MCV MCH MCHC RDW Plt Count MPV Absolute Neuts (auto) Neutrophils % Neutrophils % (Manual) Band Neutrophils % Lymphocytes % Lymphocytes % (Manual) Monocytes % Monocytes % (Manual) Eosinophils % Eosinophils % (Manual) Basophils % Basophils % (Manual) Myelocytes % (Man) Promyelocytes % (Man) Blast Cells % (Manual) Nucleated RBC % Metamyelocytes Hypochromia Toxic Granulation Platelet Estimate Platelet Comment Polychromasia Poikilocytosis Basophilic Stippling Anisocytosis Microcytosis Macrocytosis Tear Drop Cells Ovalocytes Acanthocytes (Spur) Sodium Potassium Chloride Carbon Dioxide Anion Gap BUN Creatinine Est GFR (CKD-EPI)AfAm Est GFR (CKD-EPI)NonAf POC Glucometer 86 Random Glucose Calcium Total Bilirubin AST ALT Alkaline Phosphatase Total Protein Albumin c-ANCA Proteinase 3 (PR3) p-ANCA Atypical p-ANCA Myeloperoxidase Ab Hep C Ab Diagnostic Blood Type AB POSITIVE Antibody Screen Negative Active Medications Generic Name Dose Route Start Last Admin Trade Name Freq PRN Reason Stop Dose Admin Acetaminophen 650 mg 11/26/19 15:13 11/27/19 09:17 Tylenol - PO 650 mg Q4H PRN Administration PAIN LEVEL 6-10 Fluticasone Propionate 1 spray 11/23/19 10:00 11/27/19 09:19 Flonase - NS Not Given DAILY [facility] Sodium Chloride 250 mls @ 3,000 mls/hr 11/26/19 18:20 Normal Saline - IV 11/27/19 18:20 PRN PRN Hypotension during Dialysis Insulin Aspart 1 vial 11/21/19 16:30 11/27/19 07:14 Novolog Vial Sliding Scale - SQ Not Given ACHS [facility] Protocol Metoprolol Succinate 25 mg 11/22/19 22:00 11/27/19 09:15 Toprol Xl - PO 25 mg BID [facility] Administration Oxycodone HCl 20 mg 11/25/19 04:07 11/27/19 09:15 Roxicodone - PO 20 mg Q4H PRN Administration PAIN LEVEL 6-10 Pantoprazole Sodium 40 mg 11/23/19 10:00 11/27/19 09:13 Protonix - PO 40 mg DAILY [facility] Administration Rosuvastatin Calcium 10 mg 11/25/19 22:00 11/26/19 21:04 Crestor - PO 10 mg HS [facility] Administration Tamsulosin HCl 0.4 mg 11/22/19 08:30 11/27/19 08:28 Flomax - PO 0.4 mg DAILY@0830 [facility] Administration ASSESSMENT/PLAN: #Acute on chronic renal failure #CHF #HTN #CAD #Dyslipidemia #S/P CABG #PPM #Volume Overload #Atrial Fibrillation Plan: -Unclear etiology, evaluated by occupational nurse, currently on hemodialysis REGINALD positive as per discharge summary from [facility] last creatinine was 1.5 patient was on a very small dose of lisinopril 2.5 mg -hold HD for now, function improving -plan for renal biopsy today, hold AC -REGINALD and DSDNA + -Dupree -strict I/o's, daily weights -Lasix 40mg IV BID -Kidney bladder US noted -fu cardio, renal reccs -CXR with no acute changes -monitor vital signs -tele monitoring -FU am labs Visit type - Emergency Visit Emergency Visit: Yes ED Registration Date: 11/21/19 Care time: The patient presented to the Emergency Department on the above date and was hospitalized for further evaluation of their emergent condition. - New Patient This patient is new to me today: No - Critical Care Critical Care patient: No ATTENDING PHYSICIAN STATEMENT I saw and evaluated the patient. I reviewed the resident's note and discussed the case with the resident. I agree with the resident's findings and plan as documented. SUBJECTIVE: OBJECTIVE: ASSESSMENT AND PLAN:
--- NOTE | 2019-11-27 14:38 | PN ---
Progress Note (short form) - Note Progress Note: PULMONARY Denies shortness of breath or chest pain. Vital Signs Period Temp Pulse Resp BP Sys/Chandra Pulse Ox Last 24 Hr 97.9 F-98.1 F 60-72 13-20 135-170/63-97 96-100 Gen: NAD at rest Heart: RRR Lung: decreased breath sounds at the bases Abd: soft, nontender Ext: no edema CBC, BMP 11/27/19 06:05 11/27/19 06:05 Active Medications Acetaminophen (Tylenol -) 650 mg PO Q4H PRN PRN Reason: PAIN LEVEL 6-10 Last Admin: 11/27/19 13:57 Dose: 650 mg Fluticasone Propionate (Flonase -) 1 spray NS DAILY [facility] Last Admin: 11/27/19 09:19 Dose: Not Given Sodium Chloride (Normal Saline -) 250 mls @ 3,000 mls/hr IV PRN PRN PRN Reason: Hypotension during Dialysis Stop: 11/27/19 18:20 Insulin Aspart (Novolog Vial Sliding Scale -) 1 vial SQ ACHS [facility]; Protocol Last Admin: 11/27/19 13:54 Dose: Not Given Metoprolol Succinate (Toprol Xl -) 25 mg PO BID [facility] Last Admin: 11/27/19 09:15 Dose: 25 mg Oxycodone HCl (Roxicodone -) 20 mg PO Q4H PRN PRN Reason: PAIN LEVEL 6-10 Last Admin: 11/27/19 13:56 Dose: 20 mg Pantoprazole Sodium (Protonix -) 40 mg PO DAILY [facility] Last Admin: 11/27/19 09:13 Dose: 40 mg Rosuvastatin Calcium (Crestor -) 10 mg PO HS [facility] Last Admin: 11/26/19 21:04 Dose: 10 mg Tamsulosin HCl (Flomax -) 0.4 mg PO DAILY@0830 [facility] Last Admin: 11/27/19 08:28 Dose: 0.4 mg A/P Acute on Chronic Renal Failure on HD Hyperkalemia CAD LV Systolic Dysfunction Paroxysmal Atrial Fibrillation COPD DM h/o PPM h/o CVA Anemia - for renal biopsy - HD per renal - rate control - monitor urine output, creatinine - O2 as needed - DVT prophylaxis
[2019-11-27] MEDS: ROSUVASTATIN CA 10 MG TABLET (FP) PO SCH (21:59)
[2019-11-28] MEDS: ACETAMINOPHEN 325 MG TABLET (FP) PO PRN ×6 (02:06→23:08)
[2019-11-28] MEDS: oxyCODONE HCL 5 MG TABLET PO PRN ×6 (02:06→23:07)
[2019-11-28] MEDS: INSULIN SLIDING SCALE (NOVOLOG) 1 VIAL SQ SCH ×4 (06:03→21:07)
[2019-11-28 07:15] LABS: EOS % 0.4 % (0-4.5); HEMATOCRIT 29.4 % (35.4-49); HEMOGLOBIN 9.5 GM/dL (11.7-16.9); LYMPH % 4.7 % (8-40); MCH 28.2 pg (25.7-33.7); MCHC 32.3 g/dl (32.0-35.9); MEAN CELL VOLUME 87.1 fl (80-96); MEAN PLT VOLUME 9.3 fl (7.5-11.1); MONO % 7.5 % (3.8-10.2); NEUT % 86.4 % (42.8-82.8); PLATELET COUNT 243 K/MM3 (134-434); RBC 3.37 M/mm3 (4.00-5.60); RDW 15.9 % (11.9-15.9); WHITE BLOOD COUNT 10.3 K/mm3 (4.0-10.0)
[2019-11-28 07:45] LABS: ALBUMIN 2.5 g/dl (3.4-5.0); BILIRUBIN,TOTAL 0.2 mg/dL (0.2-1); BLOOD UREA NITROGEN 55.1 mg/dL (7-18); CALCIUM 8.4 mg/dL (8.5-10.1); CREATININE 3.3 mg/dL (0.55-1.3); POTASSIUM 3.8 mmol/L (3.5-5.1); TOT PROT 5.6 g/dl (6.4-8.2)
--- NOTE | 2019-11-28 08:06 | PN ---
Teaching Attending Note Name of Resident: Ynes Conway ATTENDING PHYSICIAN STATEMENT I saw and evaluated the patient. I reviewed the resident's note and discussed the case with the resident. I agree with the resident's findings and plan as documented. SUBJECTIVE: Patient remains asymptomatic , yesterday underwent renal biopsy OBJECTIVE: Vital Signs Temperature 98.1 F 11/28/19 06:00 Pulse Rate 60 11/28/19 06:00 Respiratory Rate 17 11/28/19 06:00 Blood Pressure 160/76 11/28/19 06:00 O2 Sat by Pulse Oximetry (%) 98 11/27/19 21:00 General: Elderly man, disheveled not in distress HEENT; mucous membranes moist, no anemia, no jaundice, PERRLA, no nystagmus Neck: No JVD, supple, no bruit, thyroid palpably normal, normal carotid pulsations. Chest: Nontender, bilateral basal rales. CVS: S1-S2 regular no murmur/gallop/rub Abdomen: Nondistended, soft, bowel sounds present. 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 ASSESSMENT AND PLAN:69-year-old man history of HFrEF CAD status post CABG 2018 ischemic cardiomyopathy ejection fraction of 29%, at baseline CKD stage III, type 2 diabetes mellitus CVA, status post pacemaker, recently transferred to [facility] after treated at [facility] on November 09, 2019 patient was admitted with BRANT uremic encephalopathy, received 1 dialysis patient also has melena, after first dialysis renal functions and urine output was improved admitted with, acute renal failure with hyperkalemia currently on hemodialysis.Patient was discharged home from [facility] on apixaban 5 mg twice daily, as per discharge summary last creatinine was reported 1.5 and patient was on very small dose of lisinopril 2.5 mg daily. So far improving on hemodialysis considering recurrent BRANT requiring hemodialysis and patient REGINALD and double-stranded DNA positive we will follow-up biopsy result PLAN: Patient underwent renal biopsy on hemodialysis will follow up with renal for disposition plan Problem List - Problems (1) Renal failure (ARF), acute on chronic Assessment/Plan: Unclear etiology, evaluated by ensemble member, currently on hemodialysis REGINALD positive as per discharge summary from [facility] last creatinine was 1.5 patient was on a very small dose of lisinopril 2.5 mg, patient is scheduled for renal biopsy Code(s): N17.9 - ACUTE KIDNEY FAILURE, UNSPECIFIED; N18.9 - CHRONIC KIDNEY DISEASE, UNSPECIFIED Qualifiers: Acute renal failure type: unspecified Chronic kidney disease stage: unspecified stage Qualified Code(s): N17.9 - Acute kidney failure, unspecified ; N18.9 - Chronic kidney disease, unspecified (2) Acute on chronic systolic and diastolic heart failure, NYHA class 2 Assessment/Plan: On hemodialysis, beta-emmett, lisinopril on hold Code(s): I50.43 - ACUTE ON CHRONIC COMBINED SYSTOLIC AND DIASTOLIC HRT FAIL (3) CAD (coronary artery disease) Assessment/Plan: Status post cabg IN February 2019, previously had black tarry stools, at present H&H stable, Continue beta-blockers and statin. Off ASA Code(s): I25.10 - ATHSCL HEART DISEASE OF [place] CORONARY ARTERY W/O ANG PCTRS Qualifiers: [place] vs. transplanted heart: [place] heart Associated angina: without angina (4) Atrial fibrillation Assessment/Plan: Status post pacemaker, anticoagulation on hold for bleeding risk and plan for renal biopsy will continue beta-blockers for rate control Code(s): I48.91 - UNSPECIFIED ATRIAL FIBRILLATION (5) Hypercholesterolemia Assessment/Plan: Continue statin continue Crestor 10 mg Code(s): E78.00 - PURE HYPERCHOLESTEROLEMIA, UNSPECIFIED (6) Type 2 diabetes mellitus Assessment/Plan: Continue correction dose insulin Code(s): E11.9 - TYPE 2 DIABETES MELLITUS WITHOUT COMPLICATIONS
[2019-11-28] MEDS: metoPROLOL SUCCINATE 25 MG TAB.SR.24H (FP) PO SCH ×2 (09:03→21:01)
[2019-11-28] MEDS: PANTOPRAZOLE 40 MG TABLET PO SCH (09:03)
[2019-11-28] MEDS: TAMSULOSIN HCL 0.4 MG CAP PO SCH (09:03)
[2019-11-28] MEDS: FLUTICASONE PROP 0.05% 16 GM NASAL SPRAY NS SCH (10:14)
--- NOTE | 2019-11-28 11:48 | PN ---
Progress Note (short form) - Note Progress Note: s: no chest pain, palps, dizziness, dyspnea Current Medications Generic Name Dose Route Start Last Admin Trade Name Freq PRN Reason Stop Dose Admin Acetaminophen 650 mg 11/26/19 15:13 11/28/19 10:23 Tylenol - PO 650 mg Q4H PRN Administration PAIN LEVEL 6-10 Fluticasone Propionate 1 spray 11/23/19 10:00 11/27/19 09:19 Flonase - NS Not Given DAILY [facility] Sodium Chloride 250 mls @ 3,000 mls/hr 11/26/19 18:20 Normal Saline - IV 11/27/19 18:20 PRN PRN Hypotension during Dialysis Insulin Aspart 1 vial 11/21/19 16:30 11/28/19 06:03 Novolog Vial Sliding Scale - SQ Not Given ACHS [facility] Protocol Metoprolol Succinate 25 mg 11/22/19 22:00 11/28/19 09:03 Toprol Xl - PO 25 mg BID [facility] Administration Oxycodone HCl 20 mg 11/28/19 05:57 11/28/19 10:24 Roxicodone - PO 20 mg Q4H PRN Administration PAIN LEVEL 6-10 Pantoprazole Sodium 40 mg 11/23/19 10:00 11/28/19 09:03 Protonix - PO 40 mg DAILY [facility] Administration Rosuvastatin Calcium 10 mg 11/25/19 22:00 11/27/19 21:59 Crestor - PO 10 mg HS [facility] Administration Tamsulosin HCl 0.4 mg 11/22/19 08:30 11/28/19 09:03 Flomax - PO 0.4 mg DAILY@0830 [facility] Administration Vital Signs Period Temp Pulse Resp BP Sys/Chandra Pulse Ox Last 24 Hr 97.9 F-98.7 F 60-63 13-20 142-170/67-97 98-100 Constitutional: Yes: Well Nourished, No Distress, Calm Cardiovascular: Yes: Regular Rate and Rhythm (decr intensity diffusely (copd)), S1, S2. No: JVD, Gallop, Murmur Respiratory: Yes: Regular, CTA Bilaterally. No: Accessory Muscle Use, Rales, Wheezes Extremities: No: Cold Edema: No Neurological: Yes: Alert, Oriented Psychiatric: No: Agitated no jaundice, diaphoresis CBC, BMP 11/28/19 06:11 11/28/19 06:11 Assessment/Plan Echo 11/11/2019: Severe LV dysfunction, EF < 35%. Mild PHTN. AVS Lexiscan MPI 11/12/2019: Large fixed anterior wall, apical, distal septal and distal inferior wall scar. No ischemia, EF 31% [facility] 05/15: 70-80% mRCA (ISR), 70-80% RPDA (ISR); 70-80% mLAD; 80-90% pLCX (small vessel); 90-95% OM2 (large vessel); 80-90% prox Ramus (large vessel) ...nonobstructive dz of note -50% ostial RCA, 50-60% eccentric lesion OM1 (large vessel); EDP 30-->25 post-nitro EF 38% (diffuse WMAs) Syntax score 20 tele: sr currently, afib at times IMP: Acute on chronic renal failure now back on HD Hyperkalemia secondary to above-resolved CAD s/p multiple MIs, PCIs and CABG (02/2019 at [facility])--no signs ACS here Ischemic CM with chronic systolic systolic (LVEF < 35%) PAF, off AC secondary to recent GI bleeds (no source identified) PPM History of CVA ' +REGINALD/antiDS DNA REC: -HD as per renal. AC was being held for prior GI bleeds (without identified source). -appears euvolemic, observe -Agree with holding Lisinopril in setting ARF/hyperK -Continue home statin and Metoprolol for chronic CAD/systolic CHF/AF (unless BP limits use). Hold ASA for renal bx -Pacemaker working appropriately on telemetry thus far; routine outpt interrogations. -[id number] score is high and AC is warranted; however, recent GIB here w/ drop in H/H and guaiac + stool that was not fully investigated with endoscopic evaluation ([facility]) as patient deemed high risk for scope and H/H stabilized. There is now also need for renal biopsy. Would continue to hold AC/ and ASA in this setting as risks>> benefits. Would try to resume low dose ASA with PPI after renal bx
--- NOTE | 2019-11-28 11:55 | PN ---
Progress Note (short form) - Note Progress Note: PULMONARY s/p renal biopsy. Denies shortness of breath or chest pain. Wants sleep aid. Vital Signs Period Temp Pulse Resp BP Sys/Chandra Pulse Ox Last 24 Hr 97.9 F-98.7 F 60-63 13-20 142-170/67-97 98-100 Gen: NAD at rest Heart: RRR Lung: decreased breath sounds at the bases Abd: soft, nontender Ext: no edema CBC, BMP 11/28/19 06:11 11/28/19 06:11 Active Medications Acetaminophen (Tylenol -) 650 mg PO Q4H PRN PRN Reason: PAIN LEVEL 6-10 Last Admin: 11/28/19 10:23 Dose: 650 mg Fluticasone Propionate (Flonase -) 1 spray NS DAILY [facility] Last Admin: 11/27/19 09:19 Dose: Not Given Sodium Chloride (Normal Saline -) 250 mls @ 3,000 mls/hr IV PRN PRN PRN Reason: Hypotension during Dialysis Stop: 11/27/19 18:20 Insulin Aspart (Novolog Vial Sliding Scale -) 1 vial SQ [facility]; Protocol Last Admin: 11/28/19 06:03 Dose: Not Given Metoprolol Succinate (Toprol Xl -) 25 mg PO BID [facility] Last Admin: 11/28/19 09:03 Dose: 25 mg Oxycodone HCl (Roxicodone -) 20 mg PO Q4H PRN PRN Reason: PAIN LEVEL 6-10 Last Admin: 11/28/19 10:24 Dose: 20 mg Pantoprazole Sodium (Protonix -) 40 mg PO DAILY [facility] Last Admin: 11/28/19 09:03 Dose: 40 mg Rosuvastatin Calcium (Crestor -) 10 mg PO HS [facility] Last Admin: 11/27/19 21:59 Dose: 10 mg Tamsulosin HCl (Flomax -) 0.4 mg PO DAILY@0830 [facility] Last Admin: 11/28/19 09:03 Dose: 0.4 mg A/P Acute on Chronic Renal Failure on HD Hyperkalemia CAD LV Systolic Dysfunction Paroxysmal Atrial Fibrillation COPD DM h/o PPM h/o CVA Anemia - f/u renal pathology - HD per renal - rate control - monitor urine output, creatinine - O2 as needed - DVT prophylaxis
[2019-11-28 12:03] LABS: ANISOCYTOSIS 1+; MACROCYTOSIS 0; OVALOCYTE 1+; PLATELET ESTIMATE NORMAL
--- NOTE | 2019-11-28 13:35 | PN ---
Physical Exam: SUBJECTIVE: Patient seen and examined. offers no new complaints. no events overnight. OBJECTIVE: Vital Signs Period Temp Pulse Resp BP Sys/Chandra Pulse Ox Last 24 Hr 97.9 F-98.7 F 60-63 17-20 144-160/69-76 98-98 GENERAL: in nad, comfortable in bed EYES: PERRL, conjunctiva clear. No ptosis. ENT: dry mucous membranes. Chest: vertical scar from CABG NECK: supple. LUNGS: decreased breath sounds HEART: RRR ABDOMEN: Soft, nontender, nondistended, normoactive bowel sounds EXTREMITIES: 2+ pulses, +edema Laboratory Results - last 24 hr 11/27/19 11/27/19 11/27/19 13:44 16:54 21:58 WBC RBC Hgb Hct MCV MCH MCHC RDW Plt Count MPV Absolute Neuts (auto) Neutrophils % Neutrophils % (Manual) Band Neutrophils % Lymphocytes % Lymphocytes % (Manual) Monocytes % Monocytes % (Manual) Eosinophils % Eosinophils % (Manual) Basophils % Basophils % (Manual) Myelocytes % (Man) Promyelocytes % (Man) Blast Cells % (Manual) Nucleated RBC % Metamyelocytes Hypochromia Platelet Estimate Platelet Comment Polychromasia Poikilocytosis Anisocytosis Microcytosis Macrocytosis Spherocytes Ovalocytes Sodium Potassium Chloride Carbon Dioxide Anion Gap BUN Creatinine Est GFR (CKD-EPI)AfAm Est GFR (CKD-EPI)NonAf POC Glucometer 112 166 137 Random Glucose Calcium Total Bilirubin AST ALT Alkaline Phosphatase Total Protein Albumin 11/28/19 11/28/19 11/28/19 06:00 06:11 06:11 WBC 10.3 H RBC 3.37 L Hgb 9.5 L Hct 29.4 L MCV 87.1 MCH 28.2 MCHC 32.3 RDW 15.9 Plt Count 243 MPV 9.3 Absolute Neuts (auto) 8.9 H Neutrophils % 86.4 H Neutrophils % (Manual) 79.4 Band Neutrophils % 2.1 Lymphocytes % 4.7 L D Lymphocytes % (Manual) 7.2 L Monocytes % 7.5 Monocytes % (Manual) 4 Eosinophils % 0.4 Eosinophils % (Manual) 1.0 D Basophils % 1.0 Basophils % (Manual) 0.0 Myelocytes % (Man) 3 H D Promyelocytes % (Man) 0 Blast Cells % (Manual) 0 Nucleated RBC % 0 Metamyelocytes 0 Hypochromia 0 Platelet Estimate Normal Platelet Comment Present Polychromasia 0 Poikilocytosis 1+ Anisocytosis 1+ Microcytosis 1+ Macrocytosis 0 Spherocytes 1+ Ovalocytes 1+ Sodium 139 Potassium 3.8 Chloride 104 Carbon Dioxide 29 Anion Gap 6 L BUN 55.1 H Creatinine 3.3 H Est GFR (CKD-EPI)AfAm 20.63 Est GFR (CKD-EPI)NonAf 17.80 POC Glucometer 124 Random Glucose 114 H Calcium 8.4 L Total Bilirubin 0.2 AST 9 L ALT 14 Alkaline Phosphatase 82 Total Protein 5.6 L Albumin 2.5 L 11/28/19 11:43 WBC RBC Hgb Hct MCV MCH MCHC RDW Plt Count MPV Absolute Neuts (auto) Neutrophils % Neutrophils % (Manual) Band Neutrophils % Lymphocytes % Lymphocytes % (Manual) Monocytes % Monocytes % (Manual) Eosinophils % Eosinophils % (Manual) Basophils % Basophils % (Manual) Myelocytes % (Man) Promyelocytes % (Man) Blast Cells % (Manual) Nucleated RBC % Metamyelocytes Hypochromia Platelet Estimate Platelet Comment Polychromasia Poikilocytosis Anisocytosis Microcytosis Macrocytosis Spherocytes Ovalocytes Sodium Potassium Chloride Carbon Dioxide Anion Gap BUN Creatinine Est GFR (CKD-EPI)AfAm Est GFR (CKD-EPI)NonAf POC Glucometer 114 Random Glucose Calcium Total Bilirubin AST ALT Alkaline Phosphatase Total Protein Albumin Active Medications Generic Name Dose Route Start Last Admin Trade Name Freq PRN Reason Stop Dose Admin Acetaminophen 650 mg 11/26/19 15:13 11/28/19 10:23 Tylenol - PO 650 mg Q4H PRN Administration PAIN LEVEL 6-10 Fluticasone Propionate 1 spray 11/23/19 10:00 11/27/19 09:19 Flonase - NS Not Given DAILY [facility] Sodium Chloride 250 mls @ 3,000 mls/hr 11/26/19 18:20 Normal Saline - IV 11/27/19 18:20 PRN PRN Hypotension during Dialysis Insulin Aspart 1 vial 11/21/19 16:30 11/28/19 12:12 Novolog Vial Sliding Scale - SQ Not Given ACHS [facility] Protocol Melatonin 3 mg 11/28/19 20:00 Melatonin PO DAILY@1999 [facility] Metoprolol Succinate 25 mg 11/22/19 22:00 11/28/19 09:03 Toprol Xl - PO 25 mg BID [facility] Administration Oxycodone HCl 20 mg 11/28/19 05:57 11/28/19 10:24 Roxicodone - PO 20 mg Q4H PRN Administration PAIN LEVEL 6-10 Pantoprazole Sodium 40 mg 11/23/19 10:00 11/28/19 09:03 Protonix - PO 40 mg DAILY [facility] Administration Rosuvastatin Calcium 10 mg 11/25/19 22:00 11/27/19 21:59 Crestor - PO 10 mg HS [facility] Administration Tamsulosin HCl 0.4 mg 11/22/19 08:30 11/28/19 09:03 Flomax - PO 0.4 mg DAILY@0830 [facility] Administration ASSESSMENT/PLAN: #Acute on chronic renal failure #CHF #HTN #CAD #Dyslipidemia #S/P CABG #PPM #Volume Overload #Atrial Fibrillation Plan: -Unclear etiology, evaluated by textbook associate, currently on hemodialysis REGINALD positive as per discharge summary from [facility] last creatinine was 1.5 patient was on a very small dose of lisinopril 2.5 mg -s/p biopsy 11/27 -awaiting pathology -REGINALD and DSDNA + -Dupree -strict I/o's, daily weights -Lasix 40mg IV BID -Kidney bladder US noted -fu cardio, renal reccs -will need rheumatology follow up -monitor vital signs -tele monitoring -FU am labs Visit type - Emergency Visit Emergency Visit: Yes ED Registration Date: 11/21/19 Care time: The patient presented to the Emergency Department on the above date and was hospitalized for further evaluation of their emergent condition. - New Patient This patient is new to me today: Yes Date on this admission: 11/28/19 - Critical Care Critical Care patient: No ATTENDING PHYSICIAN STATEMENT I saw and evaluated the patient. I reviewed the resident's note and discussed the case with the resident. I agree with the resident's findings and plan as documented. SUBJECTIVE: OBJECTIVE: ASSESSMENT AND PLAN:
[2019-11-28] MEDS ORDERED: FUROSEMIDE 40 MG TABLET (FP) PO ONE (14:38)
--- NOTE | 2019-11-28 14:38 | PN ---
Progress Note, Physician History of Present Illness: Pt seen and examined at bedside. He is awake and alert. He denies shortness of breath. - Current Medication List Current Medications: Active Medications Acetaminophen (Tylenol -) 650 mg PO Q4H PRN PRN Reason: PAIN LEVEL 6-10 Last Admin: 11/28/19 10:23 Dose: 650 mg Fluticasone Propionate (Flonase -) 1 spray NS DAILY [facility] Last Admin: 11/27/19 09:19 Dose: Not Given Sodium Chloride (Normal Saline -) 250 mls @ 3,000 mls/hr IV PRN PRN PRN Reason: Hypotension during Dialysis Stop: 11/27/19 18:20 Insulin Aspart (Novolog Vial Sliding Scale -) 1 vial SQ ACHS [facility]; Protocol Last Admin: 11/28/19 12:12 Dose: Not Given Melatonin (Melatonin) 3 mg PO DAILY@2000 [facility] Metoprolol Succinate (Toprol Xl -) 25 mg PO BID [facility] Last Admin: 11/28/19 09:03 Dose: 25 mg Oxycodone HCl (Roxicodone -) 20 mg PO Q4H PRN PRN Reason: PAIN LEVEL 6-10 Last Admin: 11/28/19 10:24 Dose: 20 mg Pantoprazole Sodium (Protonix -) 40 mg PO DAILY [facility] Last Admin: 11/28/19 09:03 Dose: 40 mg Rosuvastatin Calcium (Crestor -) 10 mg PO HS [facility] Last Admin: 11/27/19 21:59 Dose: 10 mg Tamsulosin HCl (Flomax -) 0.4 mg PO DAILY@0830 [facility] Last Admin: 11/28/19 09:03 Dose: 0.4 mg - Objective Vital Signs: Vital Signs Temperature 98.7 F 11/28/19 10:00 Pulse Rate 63 11/28/19 10:00 Respiratory Rate 18 11/28/19 10:00 Blood Pressure 144/73 11/28/19 10:00 O2 Sat by Pulse Oximetry (%) 98 11/28/19 09:00 Constitutional: Yes: Calm Eyes: Yes: Conjunctiva Clear HENT: Yes: Atraumatic Neck: Yes: Supple Cardiovascular: Yes: S1, S2 Respiratory: Yes: CTA Bilaterally Gastrointestinal: Yes: Soft Genitourinary: Yes: WNL Musculoskeletal: Yes: WNL Edema: No Neurological: Yes: Oriented Psychiatric: Yes: Oriented Labs: CBC, BMP 11/28/19 06:11 11/28/19 06:11 INR, PTT INR 1.11 (0.83-1.09) H 11/21/19 11:55 Problem List - Problems (1) Hyperkalemia Code(s): E87.5 - HYPERKALEMIA (2) Renal failure (ARF), acute on chronic Code(s): N17.9 - ACUTE KIDNEY FAILURE, UNSPECIFIED; N18.9 - CHRONIC KIDNEY DISEASE, UNSPECIFIED Qualifiers: Acute renal failure type: unspecified Chronic kidney disease stage: unspecified stage Qualified Code(s): N17.9 - Acute kidney failure, unspecified ; N18.9 - Chronic kidney disease, unspecified (3) Uremia Code(s): N19 - UNSPECIFIED KIDNEY FAILURE (4) BRANT (acute kidney injury) Code(s): N17.9 - ACUTE KIDNEY FAILURE, UNSPECIFIED (5) Abnormal chest x-ray Code(s): R93.8 - ABNORMAL FINDINGS ON [facility] [place] * DO NOT USE * Assessment/Plan Current Medications Generic Name Dose Route Start Last Admin Trade Name Freq PRN Reason Stop Dose Admin Acetaminophen 650 mg 11/26/19 15:13 11/28/19 10:23 Tylenol - PO 650 mg Q4H PRN Administration PAIN LEVEL 6-10 Fluticasone Propionate 1 spray 11/23/19 10:00 11/27/19 09:19 Flonase - NS Not Given DAILY [facility] Sodium Chloride 250 mls @ 3,000 mls/hr 11/26/19 18:20 Normal Saline - IV 11/27/19 18:20 PRN PRN Hypotension during Dialysis Insulin Aspart 1 vial 11/21/19 16:30 11/28/19 12:12 Novolog Vial Sliding Scale - SQ Not Given ACHS [facility] Protocol Melatonin 3 mg 11/28/19 20:00 Melatonin PO DAILY@1999 [facility] Metoprolol Succinate 25 mg 11/22/19 22:00 11/28/19 09:03 Toprol Xl - PO 25 mg BID [facility] Administration Oxycodone HCl 20 mg 11/28/19 05:57 11/28/19 10:24 Roxicodone - PO 20 mg Q4H PRN Administration PAIN LEVEL 6-10 Pantoprazole Sodium 40 mg 11/23/19 10:00 11/28/19 09:03 Protonix - PO 40 mg DAILY [facility] Administration Rosuvastatin Calcium 10 mg 11/25/19 22:00 11/27/19 21:59 Crestor - PO 10 mg HS [facility] Administration Tamsulosin HCl 0.4 mg 11/22/19 08:30 11/28/19 09:03 Flomax - PO 0.4 mg DAILY@0830 [facility] Administration Impression 1. BRANT 2. hyperkalemia 3. copd 4. chf 5. uremia 6. fluid overload 7. cva 8. anemia Plan - pt had kidney biopsy yesterday - repeat labs in am - will hold off HD as renal function is stable - will give a dose of lasix - follow serologies - monitor hg - will evaluate for HD again tomorrow
[2019-11-28] MEDS ORDERED: MELATONIN 1 MG TABLET PO SCH (20:00)
[2019-11-28] MEDS: MELATONIN 1 MG TABLET PO SCH (21:01)
[2019-11-28] MEDS: ROSUVASTATIN CA 10 MG TABLET (FP) PO SCH (21:01)
[2019-11-28] MEDS ORDERED: INSULIN (NOVOLOG) ASPART 100 UNITS/ML 10ML VIAL ONE (21:06)
[2019-11-29] MEDS: oxyCODONE HCL 5 MG TABLET PO PRN ×5 (03:01→19:23)
[2019-11-29] MEDS: ACETAMINOPHEN 325 MG TABLET (FP) PO PRN ×3 (03:02→19:26)
[2019-11-29] MEDS: INSULIN SLIDING SCALE (NOVOLOG) 1 VIAL SQ SCH ×4 (06:21→22:07)
[2019-11-29 07:35] LABS: EOS % 0.6 % (0-4.5); HEMATOCRIT 28.9 % (35.4-49); HEMOGLOBIN 9.3 GM/dL (11.7-16.9); LYMPH % 5.4 % (8-40); MCHC 32.2 g/dl (32.0-35.9); MEAN CELL VOLUME 86.9 fl (80-96); MEAN PLT VOLUME 8.8 fl (7.5-11.1); MONO % 6.7 % (3.8-10.2); NEUT % 86.3 % (42.8-82.8); PLATELET COUNT 236 K/MM3 (134-434); RBC 3.33 M/mm3 (4.00-5.60); RDW 15.7 % (11.9-15.9); WHITE BLOOD COUNT 10.3 K/mm3 (4.0-10.0)
--- NOTE | 2019-11-29 07:53 | PN ---
Progress Note, Physician Chief Complaint: Patient remained asymptomatic History of Present Illness: 69-year-old man history of HFrEF CAD status post CABG 02/2019 ischemic cardiomyopathy ejection fraction of 29%, at baseline CKD stage III, type 2 diabetes mellitus CVA, status post pacemaker, recently transferred to [facility] after treated at [facility] on November 09, 2019 patient was admitted with BRANT uremic encephalopathy, received 1 dialysis patient also has melena, after first dialysis renal functions and urine output was improved admitted with, acute renal failure with hyperkalemia currently on hemodialysis.Patient was discharged home from [facility] on apixaban 5 mg twice daily, as per discharge summary last creatinine was reported 1.5 and patient was on very small dose of lisinopril 2.5 mg daily. So far improving on hemodialysis considering recurrent BRANT requiring hemodialysis and patient REGINALD and double-stranded DNA positive we will follow-up biopsy result - Current Medication List Current Medications: Active Medications Acetaminophen (Tylenol -) 650 mg PO Q4H PRN PRN Reason: PAIN LEVEL 6-10 Last Admin: 11/29/19 07:05 Dose: 650 mg Fluticasone Propionate (Flonase -) 1 spray NS DAILY [facility] Last Admin: 11/28/19 10:14 Dose: Not Given Sodium Chloride (Normal Saline -) 250 mls @ 3,000 mls/hr IV PRN PRN PRN Reason: Hypotension during Dialysis Stop: 11/27/19 18:20 Insulin Aspart (Novolog Vial Sliding Scale -) 1 vial SQ [facility]; Protocol Last Admin: 11/29/19 06:21 Dose: Not Given Melatonin (Melatonin) 3 mg PO DAILY@1999 [facility] Last Admin: 11/28/19 21:01 Dose: 3 mg Metoprolol Succinate (Toprol Xl -) 25 mg PO BID [facility] Last Admin: 11/28/19 21:01 Dose: 25 mg Oxycodone HCl (Roxicodone -) 20 mg PO Q4H PRN PRN Reason: PAIN LEVEL 6-10 Last Admin: 11/29/19 07:04 Dose: 20 mg Pantoprazole Sodium (Protonix -) 40 mg PO DAILY [facility] Last Admin: 11/28/19 09:03 Dose: 40 mg Rosuvastatin Calcium (Crestor -) 10 mg PO HS [facility] Last Admin: 11/28/19 21:01 Dose: 10 mg Tamsulosin HCl (Flomax -) 0.4 mg PO DAILY@0830 [facility] Last Admin: 11/28/19 09:03 Dose: 0.4 mg - Objective Vital Signs: Vital Signs Temperature 98.6 F 11/29/19 06:00 Pulse Rate 60 11/29/19 06:00 Respiratory Rate 17 11/29/19 06:00 Blood Pressure 116/50 L 11/29/19 06:00 O2 Sat by Pulse Oximetry (%) 94 L 11/28/19 21:00 General: Elderly man, disheveled not in distress HEENT; mucous membranes moist, no anemia, no jaundice, PERRLA, no nystagmus Neck: No JVD, supple, no bruit, thyroid palpably normal, normal carotid pulsations. Chest: Nontender, bilateral basal rales. CVS: S1-S2 regular no murmur/gallop/rub Abdomen: Nondistended, soft, bowel sounds present. 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 Code(s): N17.9 - ACUTE KIDNEY FAILURE, UNSPECIFIED; N18.9 - CHRONIC KIDNEY DISEASE, UNSPECIFIED Qualifiers: Acute renal failure type: unspecified Chronic kidney disease stage: unspecified stage Qualified Code(s): N17.9 - Acute kidney failure, unspecified ; N18.9 - Chronic kidney disease, unspecified (2) Acute on chronic systolic and diastolic heart failure, NYHA class 2 Assessment/Plan: On hemodialysis, beta-emmett, lisinopril on hold Code(s): I50.43 - ACUTE ON CHRONIC COMBINED SYSTOLIC AND DIASTOLIC HRT FAIL (3) CAD (coronary artery disease) Assessment/Plan: Status post cabg IN February 2019, previously had black tarry stools, at present H&H stable, Continue beta-blockers and statin ASA is resumed by cardiology with PPI. Code(s): I25.10 - ATHSCL HEART DISEASE OF [place] CORONARY ARTERY W/O ANG PCTRS Qualifiers: [place] vs. transplanted heart: [place] heart Associated angina: without angina (4) Atrial fibrillation Assessment/Plan: Status post pacemaker, anticoagulation was held for renal biopsy, today history of anticoagulant and choice of anticoagulation discussed with cardiology recommended EGD for initiations of anticoagulation will follow-up with GI for input. Code(s): I48.91 - UNSPECIFIED ATRIAL FIBRILLATION (5) Hypercholesterolemia Assessment/Plan: Continue statin continue Crestor 10 mg Code(s): E78.00 - PURE HYPERCHOLESTEROLEMIA, UNSPECIFIED (6) Type 2 diabetes mellitus Assessment/Plan: Continue correction dose insulin Code(s): E11.9 - TYPE 2 DIABETES MELLITUS WITHOUT COMPLICATIONS
[2019-11-29] MEDS: TAMSULOSIN HCL 0.4 MG CAP PO SCH (08:05)
[2019-11-29 08:20] LABS: ALBUMIN 2.4 g/dl (3.4-5.0); BILIRUBIN,TOTAL 0.6 mg/dL (0.2-1); CALCIUM 8.4 mg/dL (8.5-10.1); CREATININE 3.3 mg/dL (0.55-1.3); POTASSIUM 3.9 mmol/L (3.5-5.1); TOT PROT 5.6 g/dl (6.4-8.2)
--- NOTE | 2019-11-29 08:34 | PN ---
Progress Note (short form) - Note Progress Note: VASCULAR SURGERY s/p Right IJ Shiley placed 11/22/19 Per Renal note, patient's BUN/Cr improving. If kidneys recover, please call Surgery PAs for removal of shiley. Cont medical management
[2019-11-29] MEDS: metoPROLOL SUCCINATE 25 MG TAB.SR.24H (FP) PO SCH ×2 (09:18→22:07)
[2019-11-29] MEDS: PANTOPRAZOLE 40 MG TABLET PO SCH (09:18)
[2019-11-29] MEDS: FLUTICASONE PROP 0.05% 16 GM NASAL SPRAY NS SCH (09:19)
--- NOTE | 2019-11-29 09:53 | PN ---
Progress Note, Physician Chief Complaint: comfortable Denies CP or SOB - Current Medication List Current Medications: Active Medications Acetaminophen (Tylenol -) 650 mg PO Q4H PRN PRN Reason: PAIN LEVEL 6-10 Last Admin: 11/29/19 07:05 Dose: 650 mg Fluticasone Propionate (Flonase -) 1 spray NS DAILY [facility] Last Admin: 11/29/19 09:19 Dose: Not Given Sodium Chloride (Normal Saline -) 250 mls @ 3,000 mls/hr IV PRN PRN PRN Reason: Hypotension during Dialysis Stop: 11/27/19 18:20 Insulin Aspart (Novolog Vial Sliding Scale -) 1 vial SQ [facility]; Protocol Last Admin: 11/29/19 06:21 Dose: Not Given Melatonin (Melatonin) 3 mg PO DAILY@1999 [facility] Last Admin: 11/28/19 21:01 Dose: 3 mg Metoprolol Succinate (Toprol Xl -) 25 mg PO BID [facility] Last Admin: 11/29/19 09:18 Dose: 25 mg Oxycodone HCl (Roxicodone -) 20 mg PO Q4H PRN PRN Reason: PAIN LEVEL 6-10 Last Admin: 11/29/19 07:04 Dose: 20 mg Pantoprazole Sodium (Protonix -) 40 mg PO DAILY [facility] Last Admin: 11/29/19 09:18 Dose: 40 mg Rosuvastatin Calcium (Crestor -) 10 mg PO HS [facility] Last Admin: 11/28/19 21:01 Dose: 10 mg Tamsulosin HCl (Flomax -) 0.4 mg PO DAILY@0830 [facility] Last Admin: 11/29/19 08:05 Dose: 0.4 mg - Objective Vital Signs: Vital Signs Temperature 98.6 F 11/29/19 06:00 Pulse Rate 60 11/29/19 06:00 Respiratory Rate 17 11/29/19 06:00 Blood Pressure 116/50 L 11/29/19 06:00 O2 Sat by Pulse Oximetry (%) 94 L 11/28/19 21:00 Constitutional: Yes: No Distress Cardiovascular: Yes: Regular Rate and Rhythm Respiratory: Yes: CTA Bilaterally Gastrointestinal: Yes: Soft Musculoskeletal: Yes: WNL Extremities: Yes: Other (no edema) Edema: No Integumentary: Yes: WNL Neurological: Yes: WNL, Alert, Oriented ...Motor Strength: WNL Psychiatric: Yes: WNL Labs: CBC, BMP 11/29/19 06:38 11/29/19 06:38 INR, PTT INR 1.11 (0.83-1.09) H 11/21/19 11:55 Assessment/Plan Data Echo 11/11/2019: Severe LV dysfunction, EF < 35%. Mild PHTN. AVS Lexiscan MPI 11/12/2019: Large fixed anterior wall, apical, distal septal and distal inferior wall scar. No ischemia, EF 31% [facility] 05/15: 70-80% mRCA (ISR), 70-80% RPDA (ISR); 70-80% mLAD; 80-90% pLCX (small vessel); 90-95% OM2 (large vessel); 80-90% prox Ramus (large vessel) ...nonobstructive dz of note [id number]% ostial RCA, 50-60% eccentric lesion OM1 (large vessel); EDP 30-->25 post-nitro EF 38% (diffuse WMAs) Syntax score 20 IMP: Acute on chronic renal failure now back on HD this admission Hyperkalemia secondary to above-resolved CAD s/p multiple MIs, PCIs and CABG (02/2019 at [facility])--no signs ACS here Ischemic CM with chronic systolic systolic (LVEF < 35%) PAF, off AC secondary to recent GI bleeds (no source identified) PPM History of CVA '15 +REGINALD/antiDS DNA REC: -HD as per renal. AC was being held for prior GI bleeds (without identified source). -appears euvolemic, observe -Agree with holding Lisinopril in setting ARF/hyperK -Continue home statin and Metoprolol for chronic CAD/systolic CHF/AF (unless BP limits use). Hold ASA for renal bx -Pacemaker working appropriately on telemetry thus far; routine outpt interrogations. -[id number] score is high and AC is warranted; however, recent GIB here w/ drop in H/H and guaiac + stool that was not fully investigated with endoscopic evaluation ([facility]) as patient deemed high risk for scope and H/H stabilized. Would continue to hold full AC ASA in this setting as risks>> benefits. Would obtain GI f/u and consider endoscopy here prior to resuming full AC and outpatient discussion to review option of WATCHMAN device in future. -Would resume ASA 81mg now with PPI
[2019-11-29 11:21] LABS: ANISOCYTOSIS 1+; MACROCYTOSIS 0; PLATELET ESTIMATE NORMAL
--- NOTE | 2019-11-29 13:20 | PN ---
Progress Note (short form) - Note Progress Note: Resting in NAD. No acute events overnight. Intake & Output 11/26/19 11/27/19 11/28/19 11/29/19 23:59 23:59 23:59 23:59 Intake Total 300 100 250 240 Output Total 500 1700 1000 400 Balance -200 -1600 -750 -160 Weight 182 lb 174 lb 8 oz Last Vital Signs Temp Pulse Resp BP Pulse Ox 98 F 60 18 120/54 L 96 11/29/19 10:00 11/29/19 10:00 11/29/19 10:00 11/29/19 10:00 11/29/19 09:00 Active Medications Acetaminophen (Tylenol -) 650 mg PO Q4H PRN PRN Reason: PAIN LEVEL 6-10 Last Admin: 11/29/19 07:05 Dose: 650 mg Aspirin (Asa -) 81 mg PO DAILY [facility] Fluticasone Propionate (Flonase -) 1 spray NS DAILY [facility] Last Admin: 11/29/19 09:19 Dose: Not Given Sodium Chloride (Normal Saline -) 250 mls @ 3,000 mls/hr IV PRN PRN PRN Reason: Hypotension during Dialysis Stop: 11/27/19 18:20 Insulin Aspart (Novolog Vial Sliding Scale -) 1 vial SQ [facility]; Protocol Last Admin: 11/29/19 11:02 Dose: Not Given Melatonin (Melatonin) 3 mg PO DAILY@1999 [facility] Last Admin: 11/28/19 21:01 Dose: 3 mg Metoprolol Succinate (Toprol Xl -) 25 mg PO BID [facility] Last Admin: 11/29/19 09:18 Dose: 25 mg Oxycodone HCl (Roxicodone -) 20 mg PO Q4H PRN PRN Reason: PAIN LEVEL 6-10 Last Admin: 11/29/19 11:02 Dose: 20 mg Pantoprazole Sodium (Protonix -) 40 mg PO DAILY [facility] Last Admin: 11/29/19 09:18 Dose: 40 mg Rosuvastatin Calcium (Crestor -) 10 mg PO HS [facility] Last Admin: 11/28/19 21:01 Dose: 10 mg Tamsulosin HCl (Flomax -) 0.4 mg PO DAILY@0830 [facility] Last Admin: 11/29/19 08:05 Dose: 0.4 mg Gen: NAD at rest Heart: RRR Lung: decreased breath sounds at the bases Abd: soft, nontender Ext: no edema Laboratory Results - last 24 hr 11/28/19 11/28/19 11/29/19 17:34 21:04 06:16 WBC RBC Hgb Hct MCV MCH MCHC RDW Plt Count MPV Absolute Neuts (auto) Neutrophils % Neutrophils % (Manual) Band Neutrophils % Lymphocytes % Lymphocytes % (Manual) Monocytes % Monocytes % (Manual) Eosinophils % Eosinophils % (Manual) Basophils % Basophils % (Manual) Myelocytes % (Man) Promyelocytes % (Man) Blast Cells % (Manual) Nucleated RBC % Metamyelocytes Hypochromia Platelet Estimate Polychromasia Anisocytosis Microcytosis Macrocytosis Sodium Potassium Chloride Carbon Dioxide Anion Gap BUN Creatinine Est GFR (CKD-EPI)AfAm Est GFR (CKD-EPI)NonAf POC Glucometer 151 177 123 Random Glucose Calcium Total Bilirubin AST ALT Alkaline Phosphatase Total Protein Albumin 11/29/19 11/29/19 11/29/19 06:38 06:38 11:00 WBC 10.3 H RBC 3.33 L Hgb 9.3 L Hct 28.9 L MCV 86.9 MCH 28.0 MCHC 32.2 RDW 15.7 Plt Count 236 MPV 8.8 Absolute Neuts (auto) 8.9 H Neutrophils % 86.3 H Neutrophils % (Manual) 87.3 H Band Neutrophils % 0.0 Lymphocytes % 5.4 L Lymphocytes % (Manual) 3.9 L D Monocytes % 6.7 Monocytes % (Manual) 3 L Eosinophils % 0.6 Eosinophils % (Manual) 1.0 Basophils % 1.0 Basophils % (Manual) 0.0 Myelocytes % (Man) 1 D Promyelocytes % (Man) 0 Blast Cells % (Manual) 0 Nucleated RBC % 0 Metamyelocytes 0 Hypochromia 0 Platelet Estimate Normal Polychromasia 0 Anisocytosis 1+ Microcytosis 0 Macrocytosis 0 Sodium 142 Potassium 3.9 Chloride 107 Carbon Dioxide 29 Anion Gap 7 L BUN 58.0 H Creatinine 3.3 H Est GFR (CKD-EPI)AfAm 20.63 Est GFR (CKD-EPI)NonAf 17.80 POC Glucometer 124 Random Glucose 116 H Calcium 8.4 L Total Bilirubin 0.6 AST 111 H ALT 51 Alkaline Phosphatase 459 H Total Protein 5.6 L Albumin 2.4 L A/P Acute on Chronic Renal Failure on HD Hyperkalemia CAD LV Systolic Dysfunction Paroxysmal Atrial Fibrillation COPD DM h/o PPM h/o CVA Anemia - HD per renal - rate control - monitor urine output, creatinine - O2 as needed - DVT prophylaxis Dr Perez Problem List - Problems (1) Supplemental oxygen dependent Code(s): Z99.81 - DEPENDENCE ON SUPPLEMENTAL OXYGEN (2) Back pain Code(s): M54.9 - DORSALGIA, UNSPECIFIED (3) CAD (coronary artery disease) Code(s): I25.10 - ATHSCL HEART DISEASE OF [place] CORONARY ARTERY W/O ANG PCTRS Qualifiers: [place] vs. transplanted heart: [place] heart Associated angina: without angina (4) CKD (chronic kidney disease) Code(s): N18.9 - CHRONIC KIDNEY DISEASE, UNSPECIFIED Qualifiers: Chronic kidney disease stage: stage 2 (mild) Qualified Code(s): N18.2 - Chronic kidney disease, stage 2 (mild) (5) COPD (chronic obstructive pulmonary disease) Code(s): J44.9 - CHRONIC OBSTRUCTIVE PULMONARY DISEASE, UNSPECIFIED (6) Congestive heart failure (CHF) Code(s): I50.9 - HEART FAILURE, UNSPECIFIED Qualifiers: Heart failure type: other Qualified Code(s): I50.9 - Heart failure, unspecified (7) Diabetes mellitus Code(s): E11.9 - TYPE 2 DIABETES MELLITUS WITHOUT COMPLICATIONS Qualifiers: Diabetes mellitus type: type 2 Diabetes mellitus termite control representative insulin use: with fdc use Diabetes mellitus complication status: with circulatory complication Diabetes mellitus complication detail: with peripheral angiopathy with gangrene Qualified Code(s): E11.52 - Type 2 diabetes mellitus with diabetic peripheral angiopathy with gangrene (8) Dyspnea Code(s): R06.00 - DYSPNEA, UNSPECIFIED (9) History of CVA (cerebrovascular accident) Code(s): Z86.73 - PRSNL HX OF TIA (TIA), AND CEREB INFRC W/O RESID DEFICITS (10) History of MS (myocardial infarction) Code(s): I25.2 - OLD MYOCARDIAL INFARCTION (11) Hyperlipidemia Code(s): E78.5 - HYPERLIPIDEMIA, UNSPECIFIED (12) Hypertension Code(s): I10 - ESSENTIAL (PRIMARY) HYPERTENSION Qualifiers: Hypertension type: essential hypertension Qualified Code(s): I10 - Essential (primary) hypertension (13) Pedal edema Code(s): R60.0 - LOCALIZED EDEMA (14) Peripheral neuropathic pain Code(s): G62.9 - POLYNEUROPATHY, UNSPECIFIED (15) Peripheral neuropathy Code(s): G62.9 - POLYNEUROPATHY, UNSPECIFIED (16) Type 2 diabetes mellitus with diabetic autonomic (poly)neuropathy Code(s): E11.43 - TYPE 2 DIABETES W DIABETIC AUTONOMIC (POLY)NEUROPATHY
--- NOTE | 2019-11-29 13:48 | CON.GI ---
Consult Consult Specialty:: GI Referred by:: Hospitalist Service Reason for Consultation:: anemia - History of Present Illness Chief Complaint: Admitted for evaluation of renal insufficiency History of Present Illness: 69M admitted through [facility] 11/21/19. Noted to be in ARF. Had renal biopsy. Recently admitted to [facility], at which time he gave a history of melena. Long discussion was had with the patient and his at that time. He refused endoscopic evaluation initially but then agreed. Given that cardiology deemed him high risk and after discussion with anesthesia, it was felt that he would be best served undergoing evaluation at a tertiary care center. He was transferred to [facility] (he had undergone EGD @ [facility] in the spring and his explained that an ulcer was found). He believes that his last colonoscopy was several years ago, possibly 8 or so and that it was OK. There has been no bleeding this admission. He has been evaluated by cardioology. Seen by Dr. Guerra today. Was concerned restarting anticoagulation having not known the source of his GI bleed and suggested endoscopy prior to discharge as an option. - Past Medical History COMMISSIONING SPECIALIST: Yes: CVA, Peripheral Neuropathy Cardio/Vascular: Yes: CHF, HTN, Hyperlipdemia, [place] Pulmonary: Yes: Bronchitis, COPD, O2 Dependent, Pneumonia, Previously Intubated. No: Asthma, Pulmonary Embolus, Pulmonary Fibrosis Gastrointestinal: Yes: GERD, Other (Recent GIB) Renal/: Yes: Renal Failure, Renal Inusuff, Other Infectious Disease: Yes: MRSA Psych: Yes: Addictions Musculoskeletal: Yes: Other, Other Endocrine: Yes: Diabetes Mellitus - Past Surgical History Past Surgical History: Yes: CABG (4v), Permanent Pacemaker, Stent (PCIX5) - Alcohol/Substance Use Hx Alcohol Use: No History of Substance Use: reports: None - Smoking History Smoking history: Never smoked Have you smoked in the past 12 months: No Aproximately how many cigarettes per day: 30 If you are a former smoker, when did you quit?: 3 years - Social History Usual Living Arrangement: With Spouse ADL: Family Assistance Place of : [facility] History of Recent Travel: No Home Medications - Allergies Allergies/Adverse Reactions: Allergies Allergy/AdvReac Type Severity Reaction Status Date / Time No Known Allergies Allergy Verified 11/09/19 13:10 - Home Medications Home Medications: Ambulatory Orders Ferrous Sulfate [Feosol] 325 mg PO DAILY 04/15/19 Fluticasone Propionate 16 gm NS DAILY 04/15/19 Folic Acid - 1 mg PO DAILY 04/15/19 Insulin (LOG) Aspart [NovoLOG -] 0 units SQ [facility] 04/15/19 Lansoprazole [Prevacid -] 30 mg PO DAILY 04/15/19 Potassium Chloride [K-Dur -] 20 meq PO DAILY 04/15/19 Pregabalin [Lyrica -] 75 mg PO TID 04/15/19 Rosuvastatin [Crestor -] 20 mg PO DAILY 04/15/19 Tamsulosin HCl [Flomax -] 0.4 mg PO DAILY 04/15/19 Warfarin Na [Coumadin -] 5 mg PO DAILY@1800 04/15/19 Aspirin [ASA -] 81 mg PO DAILY #30 tab.chew 04/18/19 Furosemide [Lasix -] 80 mg PO BID@0600,1400 #60 tablet 04/18/19 Isosorbide Mononitrate [Imdur -] 30 mg PO DAILY #30 tab.sr.24h 04/18/19 Metoprolol Succinate [Toprol XL -] 25 mg PO BID #60 tab.sr.24h 04/18/19 Rosuvastatin [Crestor -] 20 mg PO HS #30 tablet 04/18/19 hydrALAZINE HCL [Apresoline -] 10 mg PO BID #60 tablet 04/18/19 Lisinopril [Zestril] 2.5 mg PO DAILY 11/09/19 Morphine Sulfate 30 mg PO BID 11/09/19 Oxycodone HCl 20 mg PO Q4H PRN 11/09/19 Pantoprazole Sodium 40 mg PO DAILY 11/09/19 Review of Systems - Review of Systems Constitutional: denies: Chills Respiratory: denies: Cough Gastrointestinal: denies: Abdominal Pain, Dysphagia, Melena, Nausea, Rectal Bleeding, Vomiting, Vomiting Blood Physical Exam-GI Vital Signs: Vital Signs Temperature 98 F 11/29/19 10:00 Pulse Rate 60 11/29/19 10:00 Respiratory Rate 18 11/29/19 10:00 Blood Pressure 120/54 L 11/29/19 10:00 O2 Sat by Pulse Oximetry (%) 96 11/29/19 09:00 Constitutional: Yes: Calm Eyes: No: Sclera Icterus Cardiovascular: Yes: Regular Rate and Rhythm, Murmur (diastolic murmur at the RSB) Respiratory: Yes: Diminished (at bases bilaterally) Gastrointestinal Inspection: No: Distention ...Auscultate: Yes: Normoactive Bowel Sounds ...Palpate: Yes: Soft. No: Hepatomegaly, Splenomegaly, Tenderness ...Percussion: No: Tympanitic ...Rectal Exam: Yes: Other (No external lesions, no masses, light brown stool, guaiac negative.) Neurological: Yes: Alert, Oriented Labs: CBC, BMP 11/29/19 06:38 11/29/19 06:38 INR, PTT INR 1.11 (0.83-1.09) H 11/21/19 11:55 Hepatic Panel Total Bilirubin 0.6 mg/dL (0.2-1) 11/29/19 06:38 Direct Bilirubin 0.4 mg/dL (0.0-0.2) H 11/29/19 06:38 AST 111 U/L (15-37) H 11/29/19 06:38 ALT 51 U/L (13-61) 11/29/19 06:38 Alkaline Phosphatase 459 U/L (45-117) H 11/29/19 06:38 Albumin 2.4 g/dl (3.4-5.0) L 11/29/19 06:38 Problem List - Problems (1) GI bleed Assessment/Plan: Prior history of GI bleed. Currently no overt GI bleeding and guaiac negative on exam. Cardiology is concerned regarding resuming anticoagulation without knowing source of previous GI bleed: Options at this time are starting anticoagulation and monitoring without repeat endoscopic evaluation or having upper endoscopy performed prior to restarting A/ C. Patient understands that he is considered high risk for invasive testing. He feels that it is not necessary to undergo endoscopy. I did discuss things with his . For now: Obtain prior endoscopy report and associated report pathology from [facility] Protonix 40mg daily Await ultimate decision re: EGD and will review previous EGD report Liver chemsitries abnormal. Normal yesterday. Asymptomatic Ordered repeat for today and abdominal US Further recommendations pending findings from the above Code(s): K92.2 - GASTROINTESTINAL HEMORRHAGE, UNSPECIFIED
[2019-11-29 13:54] LABS: BILIRUBIN,DIRECT 0.4 mg/dL (0.0-0.2)
[2019-11-29] MEDS: ASPIRIN 81 MG CHEWABLE TABLETS PO SCH (15:01)
--- NOTE | 2019-11-29 16:05 | PN ---
Progress Note, Physician History of Present Illness: Pt seen and examined at bedside. He is awake and alert. he denies shortness of breath. He denies hemoptysis. - Current Medication List Current Medications: Active Medications Acetaminophen (Tylenol -) 650 mg PO Q4H PRN PRN Reason: PAIN LEVEL 6-10 Last Admin: 11/29/19 07:05 Dose: 650 mg Aspirin (Asa -) 81 mg PO DAILY [facility] Last Admin: 11/29/19 15:01 Dose: 81 mg Fluticasone Propionate (Flonase -) 1 spray NS DAILY [facility] Last Admin: 11/29/19 09:19 Dose: Not Given Sodium Chloride (Normal Saline -) 250 mls @ 3,000 mls/hr IV PRN PRN PRN Reason: Hypotension during Dialysis Stop: 11/27/19 18:20 Insulin Aspart (Novolog Vial Sliding Scale -) 1 vial SQ [facility]; Protocol Last Admin: 11/29/19 11:02 Dose: Not Given Melatonin (Melatonin) 3 mg PO DAILY@1999 [facility] Last Admin: 11/28/19 21:01 Dose: 3 mg Metoprolol Succinate (Toprol Xl -) 25 mg PO BID [facility] Last Admin: 11/29/19 09:18 Dose: 25 mg Oxycodone HCl (Roxicodone -) 20 mg PO Q4H PRN PRN Reason: PAIN LEVEL 6-10 Last Admin: 11/29/19 15:00 Dose: 20 mg Pantoprazole Sodium (Protonix -) 40 mg PO DAILY [facility] Last Admin: 11/29/19 09:18 Dose: 40 mg Rosuvastatin Calcium (Crestor -) 10 mg PO [facility] Last Admin: 11/28/19 21:01 Dose: 10 mg Tamsulosin HCl (Flomax -) 0.4 mg PO DAILY@0830 [facility] Last Admin: 11/29/19 08:05 Dose: 0.4 mg - Objective Vital Signs: Vital Signs Temperature 98 F 11/29/19 10:00 Pulse Rate 60 11/29/19 10:00 Respiratory Rate 18 11/29/19 10:00 Blood Pressure 120/54 L 11/29/19 10:00 O2 Sat by Pulse Oximetry (%) 96 11/29/19 09:00 Constitutional: Yes: Calm HENT: Yes: Normocephalic Neck: Yes: Supple Cardiovascular: Yes: S1, S2 Respiratory: Yes: CTA Bilaterally Gastrointestinal: Yes: WNL Genitourinary: Yes: WNL Musculoskeletal: Yes: Back Pain Edema: No Neurological: Yes: Oriented Psychiatric: Yes: Oriented Labs: CBC, BMP 11/29/19 06:38 11/29/19 06:38 INR, PTT INR 1.11 (0.83-1.09) H 11/21/19 11:55 Problem List - Problems (1) Hyperkalemia Code(s): E87.5 - HYPERKALEMIA (2) Renal failure (ARF), acute on chronic Code(s): N17.9 - ACUTE KIDNEY FAILURE, UNSPECIFIED; N18.9 - CHRONIC KIDNEY DISEASE, UNSPECIFIED Qualifiers: Acute renal failure type: unspecified Chronic kidney disease stage: unspecified stage Qualified Code(s): N17.9 - Acute kidney failure, unspecified ; N18.9 - Chronic kidney disease, unspecified (3) Uremia Code(s): N19 - UNSPECIFIED KIDNEY FAILURE (4) BRANT (acute kidney injury) Code(s): N17.9 - ACUTE KIDNEY FAILURE, UNSPECIFIED (5) Abnormal chest x-ray Code(s): R93.8 - ABNORMAL FINDINGS ON [facility] [place] * DO NOT USE * Assessment/Plan Current Medications Generic Name Dose Route Start Last Admin Trade Name Freq PRN Reason Stop Dose Admin Acetaminophen 650 mg 11/26/19 15:13 11/29/19 07:05 Tylenol - PO 650 mg Q4H PRN Administration PAIN LEVEL 6-10 Aspirin 81 mg 11/29/19 10:30 11/29/19 15:01 Asa - PO 81 mg DAILY [facility] Administration Fluticasone Propionate 1 spray 11/23/19 10:00 11/29/19 09:19 Flonase - NS Not Given DAILY [facility] Sodium Chloride 250 mls @ 3,000 mls/hr 11/26/19 18:20 Normal Saline - IV 11/27/19 18:20 PRN PRN Hypotension during Dialysis Insulin Aspart 1 vial 11/21/19 16:30 11/29/19 11:02 Novolog Vial Sliding Scale - SQ Not Given ACHS [facility] Protocol Melatonin 3 mg 11/28/19 20:00 11/28/19 21:01 Melatonin PO 3 mg DAILY@1999 [facility] Administration Metoprolol Succinate 25 mg 11/22/19 22:00 11/29/19 09:18 Toprol Xl - PO 25 mg BID [facility] Administration Oxycodone HCl 20 mg 11/28/19 05:57 11/29/19 15:00 Roxicodone - PO 20 mg Q4H PRN Administration PAIN LEVEL 6-10 Pantoprazole Sodium 40 mg 11/23/19 10:00 11/29/19 09:18 Protonix - PO 40 mg DAILY [facility] Administration Rosuvastatin Calcium 10 mg 11/25/19 22:00 11/28/19 21:01 Crestor - PO 10 mg HS [facility] Administration Tamsulosin HCl 0.4 mg 11/22/19 08:30 11/29/19 08:05 Flomax - PO 0.4 mg DAILY@0830 [facility] Administration Impression 1. BRANT 2. hyperkalemia 3. copd 4. chf 5. uremia 6. fluid overload 7. cva 8. anemia 9. CKD Plan - renal function stable - kidney biopsy with chronic disease - no signs of vasculitis on biopsy - avoid nsaids - lasix prn rj - discussed with pulomary - do not restart hydralazine - check anti histone abs - will need outpt follow up - gi workup in progress
[2019-11-29] MEDS: MELATONIN 1 MG TABLET PO SCH (22:07)
[2019-11-30] MEDS: oxyCODONE HCL 5 MG TABLET PO PRN ×6 (00:24→23:52)
[2019-11-30] MEDS: ACETAMINOPHEN 325 MG TABLET (FP) PO PRN ×5 (05:08→23:52)
[2019-11-30] MEDS: INSULIN SLIDING SCALE (NOVOLOG) 1 VIAL SQ SCH ×4 (06:20→21:48)
[2019-11-30 08:06] LABS: HEMATOCRIT 28.3 % (35.4-49); LYMPH % 6.7 % (8-40); MCH 27.7 pg (25.7-33.7); MCHC 31.7 g/dl (32.0-35.9); MEAN CELL VOLUME 87.6 fl (80-96); MONO % 7.8 % (3.8-10.2); NEUT % 83.5 % (42.8-82.8); PLATELET COUNT 233 K/MM3 (134-434); RBC 3.23 M/mm3 (4.00-5.60); RDW 15.9 % (11.9-15.9); WHITE BLOOD COUNT 10.5 K/mm3 (4.0-10.0)
[2019-11-30 08:42] LABS: ALBUMIN 2.3 g/dl (3.4-5.0); BILIRUBIN,TOTAL 0.3 mg/dL (0.2-1); CALCIUM 8.2 mg/dL (8.5-10.1); CREATININE 3.4 mg/dL (0.55-1.3); POTASSIUM 4.1 mmol/L (3.5-5.1); TOT PROT 5.6 g/dl (6.4-8.2)
[2019-11-30] MEDS: ASPIRIN 81 MG CHEWABLE TABLETS PO SCH (09:42)
[2019-11-30] MEDS: metoPROLOL SUCCINATE 25 MG TAB.SR.24H (FP) PO SCH ×2 (09:42→21:46)
[2019-11-30] MEDS: PANTOPRAZOLE 40 MG TABLET PO SCH (09:42)
[2019-11-30] MEDS: TAMSULOSIN HCL 0.4 MG CAP PO SCH (09:42)
--- NOTE | 2019-11-30 09:44 | PN ---
Progress Note, Physician Chief Complaint: weakness History of Present Illness: no cp, sob, swelling, palp ex-cigs - Current Medication List Current Medications: Active Medications Acetaminophen (Tylenol -) 650 mg PO Q4H PRN PRN Reason: PAIN LEVEL 6-10 Last Admin: 11/30/19 05:08 Dose: 650 mg Aspirin (Asa -) 81 mg PO DAILY [facility] Last Admin: 11/29/19 15:01 Dose: 81 mg Fluticasone Propionate (Flonase -) 1 spray NS DAILY [facility] Last Admin: 11/29/19 09:19 Dose: Not Given Furosemide (Lasix -) 40 mg PO ONCE ONE Stop: 11/30/19 10:01 Sodium Chloride (Normal Saline -) 250 mls @ 3,000 mls/hr IV PRN PRN PRN Reason: Hypotension during Dialysis Stop: 11/27/19 18:20 Insulin Aspart (Novolog Vial Sliding Scale -) 1 vial SQ [facility]; Protocol Last Admin: 11/30/19 06:20 Dose: Not Given Melatonin (Melatonin) 3 mg PO DAILY@1999 [facility] Last Admin: 11/29/19 22:07 Dose: 3 mg Metoprolol Succinate (Toprol Xl -) 25 mg PO BID [facility] Last Admin: 11/29/19 22:07 Dose: 25 mg Oxycodone HCl (Roxicodone -) 20 mg PO Q4H PRN PRN Reason: PAIN LEVEL 6-10 Last Admin: 11/30/19 05:07 Dose: 20 mg Pantoprazole Sodium (Protonix -) 40 mg PO DAILY [facility] Last Admin: 11/29/19 09:18 Dose: 40 mg Tamsulosin HCl (Flomax -) 0.4 mg PO DAILY@0830 [facility] Last Admin: 11/29/19 08:05 Dose: 0.4 mg - Objective Vital Signs: Vital Signs Temperature 98 F 11/30/19 06:00 Pulse Rate 60 11/30/19 06:00 Respiratory Rate 20 11/30/19 06:00 Blood Pressure 147/70 11/30/19 06:00 O2 Sat by Pulse Oximetry (%) 96 11/29/19 21:00 Constitutional: Yes: No Distress, Calm Eyes: No: Sclera Icterus HENT: No: Nasal Congestion Cardiovascular: Yes: Regular Rate and Rhythm, S1, S2, Other (PMI non diplaced). No: Gallop, Murmur Respiratory: Yes: CTA Bilaterally. No: Accessory Muscle Use, Rales, Wheezes Gastrointestinal: Yes: Normal Bowel Sounds, Soft. No: Tenderness Musculoskeletal: Yes: Other (No kyphosis) Extremities: No: Cold Edema: No Integumentary: No: Jaundice Neurological: Yes: Alert, Oriented (x3) Psychiatric: No: Agitated Labs: CBC, BMP 11/30/19 06:35 11/30/19 06:35 INR, PTT INR 1.11 (0.83-1.09) H 11/21/19 11:55 Assessment/Plan Echo 11/11/2019: Severe LV dysfunction, EF < 35%. Mild PHTN. AVS Lexiscan MPI 11/12/2019: Large fixed anterior wall, apical, distal septal and distal inferior wall scar. No ischemia, EF 31% IMP: Acute on chronic renal failure now back on HD this admission Hyperkalemia secondary to above-resolved CAD s/p multiple MIs, PCIs and CABG (02/2019 at [facility])--no signs ACS here Ischemic CM with chronic systolic systolic (LVEF < 35%) PAF, off AC secondary to recent GI bleeds (no source identified) PPM History of CVA '. 15 +REGINALD/antiDS DNA Anemia REC: -s/p renal biopsy showing chronic changes. HD as per renal. appears euvolemic, observe -Agree with holding Lisinopril in setting ARF/hyperK -Continue home statin and Metoprolol for chronic CAD/systolic CHF/AF (unless BP limits use). -H/H stable, GI following -[id number] score is high (including prior CVAs) and AC is warranted. however , recent GIB here w/drop in H/H and guaiac + stool that was not fully investigated with endoscopic evaluation ([facility] admit) as patient deemed high risk for scope and H/H stabilized then. -dr bro saeed appreciated, 08/17 EGD from [facility] reviewed showing erosions felt to be bleeding culprit, rec'd avoidance of NSAIDs, PPI. ? h. pylori results , to be f/u'd and treated if indicated. -GI disc'd options with pt and and they are presently deferring high-risk endoscopy, preferring instead to try re-challenge with AC with close monitoring. i d/w'd sarah today as well: he understands very hi risk of stroke if just treat with ASA here. he understands hi likelihood of recurrent bleeding with AC, as well as incr'd risk of CV complications from scopes. wishes to forego scopes and resume AC. -will restart warfarin 5mg and re-institute home apex labs for INR (and H/H) via Dr Isbell, as was previously being done prior to cessation of AC. (prefer warfarin here given rapid reversibility if needed, as this was apparently being done satisfactorily previously as outpt) -d/c ASA to avoid incr bleeding risk -cont PPI per GI -Watchman implant would be an option although without definition of GI tract prior to the implant, it would be uncertain whether he could tolerate 6 weeks of NOAC and then 6 wks DAPT uninterrupted following the procedure. Additionally , with severely reduced LVEF, his risk of LV thrombus is substantial and renders LA appendage closure less useful. NO FURTHER INPATIENT CV WORKUP NEEDED
[2019-11-30] MEDS: FLUTICASONE PROP 0.05% 16 GM NASAL SPRAY NS SCH (09:45)
[2019-11-30] MEDS ORDERED: FUROSEMIDE 40 MG TABLET (FP) PO ONE (10:00)
[2019-11-30 11:45] LABS: ANISOCYTOSIS 1+; MACROCYTOSIS 0; OVALOCYTE 1+; PLATELET ESTIMATE NORMAL
--- NOTE | 2019-11-30 11:45 | PN ---
Progress Note (short form) - Note Progress Note: Sitting in bed, no overt bleeding EGD from 08/17 @ [facility]: Performed by Dr. Murphy. Normal esophagus, few gastric erosions in the body of the stomach, sinle, linear 1cm x 0.4cm ulcer in duodenal bulb. Avoidance of NSAIDs were advised and PPI therapy. Colonoscopy was poorly prepped and could not be performed. Was not repeated as it was felt bleeding source was found on upper endoscopy. Biopsies were taken for H. Pylori - Would try to otain pathology results from [facility]. If h. pylori + would treat - Continue Protonix 40mg daily indefinitely - Patent opting to resume A/C without repeat EGD. Problem List - Problems (1) GI bleed Code(s): K92.2 - GASTROINTESTINAL HEMORRHAGE, UNSPECIFIED
--- NOTE | 2019-11-30 12:29 | PN ---
Progress Note (short form) - Note Progress Note: Renal follow up for BRANT coverage for Dr. Cobian Seen and examined at the bedside offers no acute complaints making urine denies any sob, cp, fever, chills, N/V Vital Signs Temperature 98.8 F 11/30/19 10:00 Pulse Rate 62 11/30/19 10:00 Respiratory Rate 18 11/30/19 10:00 Blood Pressure 147/64 11/30/19 10:00 O2 Sat by Pulse Oximetry (%) 96 11/29/19 21:00 Intake & Output 11/27/19 11/28/19 11/29/19 11/30/19 23:59 23:59 23:59 23:59 Intake Total 100 250 630 400 Output Total 1700 1000 400 300 Balance -1600 -750 230 100 Weight 82.554 kg 79.152 kg NAD awake and alert necks supple RRR CTA no LE edema CBC, BMP 11/30/19 06:35 11/30/19 06:35 Current Medications Acetaminophen (Tylenol -) 650 mg PO Q4H PRN PRN Reason: PAIN LEVEL 6-10 Last Admin: 11/30/19 09:40 Dose: 650 mg Aspirin (Asa -) 81 mg PO DAILY [facility] Last Admin: 11/30/19 09:42 Dose: 81 mg Fluticasone Propionate (Flonase -) 1 spray NS DAILY [facility] Last Admin: 11/30/19 09:45 Dose: Not Given Sodium Chloride (Normal Saline -) 250 mls @ 3,000 mls/hr IV PRN PRN PRN Reason: Hypotension during Dialysis Stop: 11/27/19 18:20 Insulin Aspart (Novolog Vial Sliding Scale -) 1 vial SQ ACHS [facility]; Protocol Last Admin: 11/30/19 11:51 Dose: Not Given Melatonin (Melatonin) 3 mg PO DAILY@1999 [facility] Last Admin: 11/29/19 22:07 Dose: 3 mg Metoprolol Succinate (Toprol Xl -) 25 mg PO BID [facility] Last Admin: 11/30/19 09:42 Dose: 25 mg Oxycodone HCl (Roxicodone -) 20 mg PO Q4H PRN PRN Reason: PAIN LEVEL 6-10 Last Admin: 11/30/19 09:41 Dose: 20 mg Pantoprazole Sodium (Protonix -) 40 mg PO DAILY [facility] Last Admin: 11/30/19 09:42 Dose: 40 mg Rosuvastatin Calcium (Crestor -) 20 mg PO HS [facility] Tamsulosin HCl (Flomax -) 0.4 mg PO DAILY@0830 [facility] Last Admin: 11/30/19 09:42 Dose: 0.4 mg Impression 1. BRANT 2. hyperkalemia 3. copd 4. chf 5. uremia 6. fluid overload 7. cva 8. anemia 9. CKD Plan Renal function improved and stable no acute indication for DIRECTOR GAME (eGFR 18) No fluid overload/hyperkalemia/acidosis Renal diet Trend renal function and electrolytes daily Lasix PRN for edema Gerber Richardson DO
--- NOTE | 2019-11-30 13:50 | PN ---
Progress Note (short form) - Note Progress Note: No new complaint. No fever no chills. History present illness History of Present Illness: 69-year-old man history of HFrEF CAD status post CABG 02/2019 ischemic cardiomyopathy ejection fraction of 29%, at baseline CKD stage III, type 2 diabetes mellitus CVA, status post pacemaker, recently transferred to [facility] after treated at [facility] on November 09, 2019 patient was admitted with BRANT uremic encephalopathy, received 1 dialysis patient also has melena, after first dialysis renal functions and urine output was improved admitted with, acute renal failure with hyperkalemia currently on hemodialysis.Patient was discharged home from [facility] on apixaban 5 mg twice daily, as per discharge summary last creatinine was reported 1.5 and patient was on very small dose of lisinopril 2.5 mg daily. So far improving on hemodialysis considering recurrent BRANT requiring hemodialysis and patient REGINALD and double-stranded DNA positive we will follow-up biopsy result Vital Signs Period Temp Pulse Resp BP Sys/Chandra Pulse Ox Last 24 Hr 97.8 F-99.5 F 58-62 18-20 130-147/62-70 96 Review of systems head no dizziness ear nose throat no backslash clear lungs no shortness of breath GI no GI bleeding neuro no dizziness Physical examination General: Elderly man, disheveled not in distress HEENT; mucous membranes moist, no anemia, no jaundice, PERRLA, no nystagmus Neck: No JVD, supple, no bruit, thyroid palpably normal, normal carotid pulsations. Chest: Nontender, bilateral basal rales. CVS: S1-S2 regular no murmur/gallop/rub Abdomen: Nondistended, soft, bowel sounds present. 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 for edema and follow-up labs tomorrow Abnormal liver enzymes and ultrasound shows biliary sludge possible gallstone issue Recommended to do MRCP of abdomen and MRI ordered. Congestive heart failure, coronary artery disease, atrial fibrillation, hyperlipidemia, type 2 diabetes Patient is stable medications reviewed done continue same medications.. Visit type - Emergency Visit Emergency Visit: Yes ED Registration Date: 11/21/19 Care time: The patient presented to the Emergency Department on the above date and was hospitalized for further evaluation of their emergent condition. - New Patient This patient is new to me today: Yes Date on this admission: 11/30/19 - Critical Care Critical Care patient: No - Discharge Referral Referred to [facility] No
--- NOTE | 2019-11-30 14:50 | PN ---
Progress Note (short form) - Note Progress Note: PULMONARY Denies shortness of breath or chest pain. Making urine. Vital Signs Period Temp Pulse Resp BP Sys/Chandra Pulse Ox Last 24 Hr 97.8 F-99.5 F 58-62 18-20 126-147/56-70 96 Gen: NAD at rest Heart: RRR Lung: decreased breath sounds at the bases Abd: soft, nontender Ext: no edema CBC, BMP 11/30/19 06:35 11/30/19 06:35 Active Medications Acetaminophen (Tylenol -) 650 mg PO Q4H PRN PRN Reason: PAIN LEVEL 6-10 Last Admin: 11/30/19 09:40 Dose: 650 mg Fluticasone Propionate (Flonase -) 1 spray NS DAILY [facility] Last Admin: 11/30/19 09:45 Dose: Not Given Sodium Chloride (Normal Saline -) 250 mls @ 3,000 mls/hr IV PRN PRN PRN Reason: Hypotension during Dialysis Stop: 11/27/19 18:20 Insulin Aspart (Novolog Vial Sliding Scale -) 1 vial SQ [facility]; Protocol Last Admin: 11/30/19 11:51 Dose: Not Given Melatonin (Melatonin) 3 mg PO DAILY@1999 [facility] Last Admin: 11/29/19 22:07 Dose: 3 mg Metoprolol Succinate (Toprol Xl -) 25 mg PO BID [facility] Last Admin: 11/30/19 09:42 Dose: 25 mg Oxycodone HCl (Roxicodone -) 20 mg PO Q4H PRN PRN Reason: PAIN LEVEL 6-10 Last Admin: 11/30/19 09:41 Dose: 20 mg Pantoprazole Sodium (Protonix -) 40 mg PO DAILY [facility] Last Admin: 11/30/19 09:42 Dose: 40 mg Rosuvastatin Calcium (Crestor -) 20 mg PO [facility] Tamsulosin HCl (Flomax -) 0.4 mg PO DAILY@0830 [facility] Last Admin: 11/30/19 09:42 Dose: 0.4 mg Warfarin Sodium (Coumadin -) 5 mg PO DAILY@1800 [facility] A/P Acute on Chronic Renal Failure on HD Hyperkalemia resolved CAD LV Systolic Dysfunction Paroxysmal Atrial Fibrillation COPD DM h/o PPM h/o CVA Anemia - f/u renal pathology - HD per renal - rate control - monitor urine output, creatinine - O2 as needed - DVT prophylaxis
[2019-11-30 17:27] LABS: INR 1.11 (0.83-1.09); PROTHROMBIN TIME (PATIENT) 13.1 SEC (9.7-13.0)
[2019-11-30] MEDS: WARFARIN NA 5 MG TABLET (UD) PO SCH (17:36)
[2019-11-30] MEDS: MELATONIN 5 MG TABLETS PO SCH (19:56)
[2019-11-30] MEDS ORDERED: INSULIN (NOVOLOG) ASPART 100 UNITS/ML 10ML VIAL ONE (21:09)
[2019-11-30] MEDS: ROSUVASTATIN CA 20 MG TABLET (FP) PO SCH (21:45)
[2019-12-01] MEDS: oxyCODONE HCL 5 MG TABLET PO PRN ×5 (04:01→20:40)
[2019-12-01] MEDS: ACETAMINOPHEN 325 MG TABLET (FP) PO PRN ×5 (04:01→20:40)
[2019-12-01] MEDS: INSULIN SLIDING SCALE (NOVOLOG) 1 VIAL SQ SCH ×4 (06:03→21:10)
--- NOTE | 2019-12-01 08:06 | PN ---
Progress Note (short form) - Note Progress Note: No new complaint. No fever no chills. History present illness History of Present Illness: 69-year-old man history of HFrEF CAD status post CABG 02/2019 ischemic cardiomyopathy ejection fraction of 29%, at baseline CKD stage III, type 2 diabetes mellitus CVA, status post pacemaker, recently transferred to [facility] after treated at [facility] on November 09, 2019 patient was admitted with BRANT uremic encephalopathy, received 1 dialysis patient also has melena, after first dialysis renal functions and urine output was improved admitted with, acute renal failure with hyperkalemia currently on hemodialysis.Patient was discharged home from [facility] on apixaban 5 mg twice daily, as per discharge summary last creatinine was reported 1.5 and patient was on very small dose of lisinopril 2.5 mg daily. So far improving on hemodialysis considering recurrent BRANT requiring hemodialysis and patient REGINALD and double-stranded DNA positive we will follow-up biopsy result Vital Signs Vital Signs Period Temp Pulse Resp BP Sys/Chandra Pulse Ox Last 24 Hr 97.9 F-98.8 F 60-63 18-20 126-147/56-84 96-97 Review of systems head no dizziness ear nose throat no backslash clear lungs no shortness of breath GI no GI bleeding neuro no dizziness Physical examination General: Elderly man, disheveled not in distress HEENT; mucous membranes moist, no anemia, no jaundice, PERRLA, no nystagmus Neck: No JVD, supple, no bruit, thyroid palpably normal, normal carotid pulsations. Chest: Nontender, bilateral basal rales. CVS: S1-S2 regular no murmur/gallop/rub Abdomen: Nondistended, soft, bowel sounds present. 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 , no gross motor sensory deficit CBC, BMP 11/30/19 06:35 11/30/19 06:35 Laboratory Results - last 24 hr 11/29/19 11/30/19 11/30/19 06:38 06:35 06:35 WBC 10.5 H RBC 3.23 L Hgb 9.0 L Hct 28.3 L MCV 87.6 MCH 27.7 MCHC 31.7 L RDW 15.9 Plt Count 233 MPV 9.0 Absolute Neuts (auto) 8.8 H Neutrophils % 83.5 H Neutrophils % (Manual) 84.9 H Band Neutrophils % 1.0 Lymphocytes % 6.7 L D Lymphocytes % (Manual) 7.1 L D Monocytes % 7.8 Monocytes % (Manual) 4 Eosinophils % 1.0 Eosinophils % (Manual) 0.0 D Basophils % 1.0 Basophils % (Manual) 1.0 D Myelocytes % (Man) 0 D Promyelocytes % (Man) 0 Blast Cells % (Manual) 0 Nucleated RBC % 0 Metamyelocytes 0 Hypochromia 0 Platelet Estimate Normal Platelet Comment Present Polychromasia 1+ Poikilocytosis 1+ Anisocytosis 1+ Microcytosis 1+ Macrocytosis 0 Spherocytes 1+ Ovalocytes 1+ Leah Cells 1+ PT with INR INR Sodium 140 Potassium 4.1 Chloride 106 Carbon Dioxide 27 Anion Gap 6 L BUN 63.0 H Creatinine 3.4 H Est GFR (CKD-EPI)AfAm 19.90 Est GFR (CKD-EPI)NonAf 17.17 POC Glucometer Random Glucose 87 Calcium 8.2 L Total Bilirubin 0.3 AST 32 ALT 45 Alkaline Phosphatase 370 H Total Protein 5.6 L Albumin 2.3 L Complement C3 110 Complement C4 38 11/30/19 11/30/19 11/30/19 11:49 16:25 16:31 WBC RBC Hgb Hct MCV MCH MCHC RDW Plt Count MPV Absolute Neuts (auto) Neutrophils % Neutrophils % (Manual) Band Neutrophils % Lymphocytes % Lymphocytes % (Manual) Monocytes % Monocytes % (Manual) Eosinophils % Eosinophils % (Manual) Basophils % Basophils % (Manual) Myelocytes % (Man) Promyelocytes % (Man) Blast Cells % (Manual) Nucleated RBC % Metamyelocytes Hypochromia Platelet Estimate Platelet Comment Polychromasia Poikilocytosis Anisocytosis Microcytosis Macrocytosis Spherocytes Ovalocytes Leah Cells PT with INR 13.10 H INR 1.11 H Sodium Potassium Chloride Carbon Dioxide Anion Gap BUN Creatinine Est GFR (CKD-EPI)AfAm Est GFR (CKD-EPI)NonAf POC Glucometer 84 152 Random Glucose Calcium Total Bilirubin AST ALT Alkaline Phosphatase Total Protein Albumin Complement C3 Complement C4 11/30/19 12/01/19 21:43 06:03 WBC RBC Hgb Hct MCV MCH MCHC RDW Plt Count MPV Absolute Neuts (auto) Neutrophils % Neutrophils % (Manual) Band Neutrophils % Lymphocytes % Lymphocytes % (Manual) Monocytes % Monocytes % (Manual) Eosinophils % Eosinophils % (Manual) Basophils % Basophils % (Manual) Myelocytes % (Man) Promyelocytes % (Man) Blast Cells % (Manual) Nucleated RBC % Metamyelocytes Hypochromia Platelet Estimate Platelet Comment Polychromasia Poikilocytosis Anisocytosis Microcytosis Macrocytosis Spherocytes Ovalocytes Energy Cells PT with INR INR Sodium Potassium Chloride Carbon Dioxide Anion Gap BUN Creatinine Est GFR (CKD-EPI)AfAm Est GFR (CKD-EPI)NonAf POC Glucometer 141 89 Random Glucose Calcium Total Bilirubin AST ALT Alkaline Phosphatase Total Protein Albumin Complement C3 Complement C4 Assessment and plan Renal failure cute on chronic Seen by nephrology today and renal functions are improved renal diet Lasix p.o. for edema and follow-up labs tomorrow Abnormal liver enzymes and ultrasound shows biliary sludge possible gallstone issue Recommended to do MRCP of abdomen and MRI ordered. Congestive heart failure, coronary artery disease, atrial fibrillation, hyperlipidemia, type 2 diabetes Patient is stable medications reviewed done continue same medications.. History of atrial fibrillation. Patient was seen by program manager rn and recommended restart back on anticoagulation with monitoring of INR and also hemoglobin for any sign of bleeding because he does have history of positive guaiac stools and also history of low H&H in the past. Visit type - Emergency Visit Emergency Visit: Yes ED Registration Date: 11/21/19 Care time: The patient presented to the Emergency Department on the above date and was hospitalized for further evaluation of their emergent condition. - New Patient This patient is new to me today: No - Critical Care Critical Care patient: No - Discharge Referral Referred to [facility] No
[2019-12-01] MEDS: metoPROLOL SUCCINATE 25 MG TAB.SR.24H (FP) PO SCH ×3 (08:40→21:11)
[2019-12-01] MEDS: TAMSULOSIN HCL 0.4 MG CAP PO SCH (08:40)
[2019-12-01] MEDS: PANTOPRAZOLE 40 MG TABLET PO SCH ×2 (08:41→09:50)
[2019-12-01 09:04] LABS: BLOOD UREA NITROGEN 67.8 mg/dL (7-18); CALCIUM 8.2 mg/dL (8.5-10.1); CREATININE 3.5 mg/dL (0.55-1.3); POTASSIUM 4.3 mmol/L (3.5-5.1)
[2019-12-01] MEDS: FLUTICASONE PROP 0.05% 16 GM NASAL SPRAY NS SCH (09:50)
--- NOTE | 2019-12-01 11:06 | PN ---
Progress Note (short form) - Note Progress Note: Renal follow up for BRANT coverage for Dr. Cobian Seen and examined at the bedside offers no acute complaints making urine denies any sob, cp, fever, chills, N/V tolerating diet Vital Signs Temperature 97.8 F 12/01/19 09:45 Pulse Rate 63 12/01/19 09:45 Respiratory Rate 20 12/01/19 09:45 Blood Pressure 123/57 L 12/01/19 09:45 O2 Sat by Pulse Oximetry (%) 96 12/01/19 09:00 Intake & Output 11/28/19 11/29/19 11/30/19 12/01/19 23:59 23:59 23:59 23:59 Intake Total 250 630 630 Output Total 2266 750 3781 Balance -750 230 -870 Weight 82.554 kg 79.152 kg 79.379 kg NAD awake and alert necks supple RRR CTA no LE edema CBC, BMP 11/30/19 06:35 12/01/19 06:55 Current Medications Acetaminophen (Tylenol -) 650 mg PO Q4H PRN PRN Reason: PAIN LEVEL 6-10 Last Admin: 12/01/19 08:40 Dose: 650 mg Fluticasone Propionate (Flonase -) 1 spray NS DAILY [facility] Last Admin: 12/01/19 09:50 Dose: 1 spray Sodium Chloride (Normal Saline -) 250 mls @ 3,000 mls/hr IV PRN PRN PRN Reason: Hypotension during Dialysis Stop: 11/27/19 18:20 Insulin Aspart (Novolog Vial Sliding Scale -) 1 vial SQ [facility]; Protocol Last Admin: 12/01/19 10:36 Dose: Not Given Melatonin (Melatonin) 5 mg PO DAILY@1999 [facility] Last Admin: 11/30/19 19:56 Dose: 5 mg Metoprolol Succinate (Toprol Xl -) 25 mg PO BID [facility] Last Admin: 12/01/19 09:50 Dose: Not Given Oxycodone HCl (Roxicodone -) 20 mg PO Q4H PRN PRN Reason: PAIN LEVEL 6-10 Last Admin: 12/01/19 08:38 Dose: 20 mg Pantoprazole Sodium (Protonix -) 40 mg PO DAILY [facility] Last Admin: 12/01/19 09:50 Dose: Not Given Rosuvastatin Calcium (Crestor -) 20 mg PO [facility] Last Admin: 11/30/19 21:45 Dose: 20 mg Tamsulosin HCl (Flomax -) 0.4 mg PO DAILY@0830 [facility] Last Admin: 12/01/19 08:40 Dose: 0.4 mg Warfarin Sodium (Coumadin -) 5 mg PO DAILY@1800 [facility] Last Admin: 11/30/19 17:36 Dose: 5 mg Impression 1. BRANT 2. hyperkalemia 3. copd 4. chf 5. uremia 6. fluid overload 7. cva 8. anemia 9. CKD Plan Renal function stable. 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 Gerber Richardson DO
--- NOTE | 2019-12-01 13:15 | PN ---
Progress Note (short form) - Note Progress Note: PULMONARY Denies shortness of breath or chest pain. Making urine. Vital Signs Period Temp Pulse Resp BP Sys/Chandra Pulse Ox Last 24 Hr 97.8 F-98.1 F 60-63 18-20 123-147/56-84 96-97 Gen: NAD at rest Heart: RRR Lung: decreased breath sounds at the bases Abd: soft, nontender Ext: no edema CBC, BMP 11/30/19 06:35 12/01/19 06:55 Active Medications Acetaminophen (Tylenol -) 650 mg PO Q4H PRN PRN Reason: PAIN LEVEL 6-10 Last Admin: 12/01/19 12:20 Dose: 650 mg Fluticasone Propionate (Flonase -) 1 spray NS DAILY [facility] Last Admin: 12/01/19 09:50 Dose: 1 spray Sodium Chloride (Normal Saline -) 250 mls @ 3,000 mls/hr IV PRN PRN PRN Reason: Hypotension during Dialysis Stop: 11/27/19 18:20 Insulin Aspart (Novolog Vial Sliding Scale -) 1 vial SQ [facility] ON LICENSE OF [facility]; Protocol Last Admin: 12/01/19 10:36 Dose: Not Given Melatonin (Melatonin) 5 mg PO DAILY@2000 [facility] Last Admin: 11/30/19 19:56 Dose: 5 mg Metoprolol Succinate (Toprol Xl -) 25 mg PO BID [facility] Last Admin: 12/01/19 09:50 Dose: Not Given Oxycodone HCl (Roxicodone -) 20 mg PO Q4H PRN PRN Reason: PAIN LEVEL 6-10 Last Admin: 12/01/19 12:21 Dose: 20 mg Pantoprazole Sodium (Protonix -) 40 mg PO DAILY [facility] Last Admin: 12/01/19 09:50 Dose: Not Given Rosuvastatin Calcium (Crestor -) 20 mg PO HS [facility] Last Admin: 11/30/19 21:45 Dose: 20 mg Tamsulosin HCl (Flomax -) 0.4 mg PO DAILY@0830 [facility] Last Admin: 12/01/19 08:40 Dose: 0.4 mg Warfarin Sodium (Coumadin -) 5 mg PO DAILY@1800 [facility] Last Admin: 11/30/19 17:36 Dose: 5 mg A/P Acute on Chronic Renal Failure on HD Hyperkalemia resolved CAD LV Systolic Dysfunction Paroxysmal Atrial Fibrillation COPD DM h/o PPM h/o CVA Anemia - f/u renal pathology - HD per renal - rate control - monitor urine output, creatinine - O2 as needed - DVT prophylaxis
[2019-12-01 18:05] LABS: INR 1.13 (0.83-1.09); PROTHROMBIN TIME (PATIENT) 13.3 SEC (9.7-13.0)
[2019-12-01] MEDS: WARFARIN NA 5 MG TABLET (UD) PO SCH (18:16)
[2019-12-01] MEDS: MELATONIN 5 MG TABLETS PO SCH (20:40)
[2019-12-01] MEDS ORDERED: INSULIN (NOVOLOG) ASPART 100 UNITS/ML 10ML VIAL ONE (20:57)
[2019-12-01] MEDS: ROSUVASTATIN CA 20 MG TABLET (FP) PO SCH (21:10)
[2019-12-02] MEDS: ACETAMINOPHEN 325 MG TABLET (FP) PO PRN ×5 (00:30→17:01)
[2019-12-02] MEDS: oxyCODONE HCL 5 MG TABLET PO PRN ×5 (00:30→17:00)
[2019-12-02] MEDS: INSULIN SLIDING SCALE (NOVOLOG) 1 VIAL SQ SCH ×3 (06:09→18:05)
[2019-12-02] MEDS: TAMSULOSIN HCL 0.4 MG CAP PO SCH (09:01)
[2019-12-02] MEDS: PANTOPRAZOLE 40 MG TABLET PO SCH (09:01)
[2019-12-02] MEDS: metoPROLOL SUCCINATE 25 MG TAB.SR.24H (FP) PO SCH (09:02)
[2019-12-02] MEDS: FLUTICASONE PROP 0.05% 16 GM NASAL SPRAY NS SCH (09:02)
[2019-12-02 10:09] VITALS: PULSE 61
--- NOTE | 2019-12-02 10:33 | PN ---
Progress Note (short form) - Note Progress Note: Denies shortness of breath or chest pain. Wants to go home. Intake & Output 11/29/19 11/30/19 12/01/19 12/02/19 23:59 23:59 23:59 23:59 Intake Total 630 630 730 Output Total 400 1500 500 Balance 230 -870 730 -500 Weight 174 lb 8 oz 175 lb 174 lb Last Vital Signs Temp Pulse Resp BP Pulse Ox 98 F 61 18 147/70 98 12/02/19 10:00 12/02/19 10:00 12/02/19 10:00 12/02/19 10:00 12/02/19 09:00 Active Medications Acetaminophen (Tylenol -) 650 mg PO Q4H PRN PRN Reason: PAIN LEVEL 6-10 Last Admin: 12/02/19 09:02 Dose: 650 mg Fluticasone Propionate (Flonase -) 1 spray NS DAILY [facility] Last Admin: 12/02/19 09:02 Dose: 1 spray Sodium Chloride (Normal Saline -) 250 mls @ 3,000 mls/hr IV PRN PRN PRN Reason: Hypotension during Dialysis Stop: 11/27/19 18:20 Insulin Aspart (Novolog Vial Sliding Scale -) 1 vial SQ ACHS [facility]; Protocol Last Admin: 12/02/19 06:09 Dose: Not Given Melatonin (Melatonin) 5 mg PO DAILY@1999 [facility] Last Admin: 12/01/19 20:40 Dose: 5 mg Metoprolol Succinate (Toprol Xl -) 25 mg PO BID [facility] Last Admin: 12/02/19 09:02 Dose: 25 mg Oxycodone HCl (Roxicodone -) 20 mg PO Q4H PRN PRN Reason: PAIN LEVEL 6-10 Last Admin: 12/02/19 09:02 Dose: 20 mg Pantoprazole Sodium (Protonix -) 40 mg PO DAILY [facility] Last Admin: 12/02/19 09:01 Dose: 40 mg Rosuvastatin Calcium (Crestor -) 20 mg PO HS [facility] Last Admin: 12/01/19 21:10 Dose: 20 mg Tamsulosin HCl (Flomax -) 0.4 mg PO DAILY@0830 [facility] Last Admin: 12/02/19 09:01 Dose: 0.4 mg Warfarin Sodium (Coumadin -) 5 mg PO DAILY@1800 [facility] Last Admin: 12/01/19 18:16 Dose: 5 mg Gen: NAD at rest Heart: RRR Lung: decreased breath sounds at the bases Abd: soft, nontender Ext: no edema Laboratory Results - last 24 hr 12/01/19 12/01/19 12/01/19 10:34 16:30 16:39 PT with INR 13.30 H INR 1.13 H POC Glucometer 111 160 12/01/19 12/02/19 21:10 06:08 PT with INR INR POC Glucometer 143 85 A/P Acute on Chronic Renal Failure on HD Hyperkalemia resolved CAD LV Systolic Dysfunction Paroxysmal Atrial Fibrillation COPD DM h/o PPM h/o CVA Anemia - f/u renal pathology - HD per renal - rate control - monitor urine output, creatinine - O2 as needed - DVT prophylaxis - There is no Pulmonary contraindication for DC. Will need PFTs and HRCT after discharge. Dr Perez Problem List - Problems (1) Supplemental oxygen dependent Code(s): Z99.81 - DEPENDENCE ON SUPPLEMENTAL OXYGEN (2) Back pain Code(s): M54.9 - DORSALGIA, UNSPECIFIED (3) CAD (coronary artery disease) Code(s): I25.10 - ATHSCL HEART DISEASE OF [place] CORONARY ARTERY W/O ANG PCTRS Qualifiers: [place] vs. transplanted heart: [place] heart Associated angina: without angina (4) CKD (chronic kidney disease) Code(s): N18.9 - CHRONIC KIDNEY DISEASE, UNSPECIFIED Qualifiers: Chronic kidney disease stage: stage 2 (mild) Qualified Code(s): N18.2 - Chronic kidney disease, stage 2 (mild) (5) COPD (chronic obstructive pulmonary disease) Code(s): J44.9 - CHRONIC OBSTRUCTIVE PULMONARY DISEASE, UNSPECIFIED (6) Congestive heart failure (CHF) Code(s): I50.9 - HEART FAILURE, UNSPECIFIED Qualifiers: Heart failure type: other Qualified Code(s): I50.9 - Heart failure, unspecified (7) Diabetes mellitus Code(s): E11.9 - TYPE 2 DIABETES MELLITUS WITHOUT COMPLICATIONS Qualifiers: Diabetes mellitus type: type 2 Diabetes mellitus termite technician insulin use: with termite technician use Diabetes mellitus complication status: with circulatory complication Diabetes mellitus complication detail: with peripheral angiopathy with gangrene Qualified Code(s): E11.52 - Type 2 diabetes mellitus with diabetic peripheral angiopathy with gangrene (8) Dyspnea Code(s): R06.00 - DYSPNEA, UNSPECIFIED (9) History of CVA (cerebrovascular accident) Code(s): Z86.73 - PRSNL HX OF TIA (TIA), AND CEREB INFRC W/O RESID DEFICITS (10) History of ID (myocardial infarction) Code(s): I25.2 - OLD MYOCARDIAL INFARCTION (11) Hyperlipidemia Code(s): E78.5 - HYPERLIPIDEMIA, UNSPECIFIED (12) Hypertension Code(s): I10 - ESSENTIAL (PRIMARY) HYPERTENSION Qualifiers: Hypertension type: essential hypertension Qualified Code(s): I10 - Essential (primary) hypertension (13) Pedal edema Code(s): R60.0 - LOCALIZED EDEMA (14) Peripheral neuropathic pain Code(s): G62.9 - POLYNEUROPATHY, UNSPECIFIED (15) Peripheral neuropathy Code(s): G62.9 - POLYNEUROPATHY, UNSPECIFIED (16) Type 2 diabetes mellitus with diabetic autonomic (poly)neuropathy Code(s): E11.43 - TYPE 2 DIABETES W DIABETIC AUTONOMIC (POLY)NEUROPATHY
[2019-12-02 13:09] LABS: HEMOGLOBIN 8.9 GM/dL (11.7-16.9); MCH 27.3 pg (25.7-33.7); MCHC 30.8 g/dl (32.0-35.9); MEAN CELL VOLUME 88.6 fl (80-96); MEAN PLT VOLUME 9.2 fl (7.5-11.1); PLATELET COUNT 272 K/MM3 (134-434); RBC 3.28 M/mm3 (4.00-5.60); RDW 15.8 % (11.9-15.9); WHITE BLOOD COUNT 14.1 K/mm3 (4.0-10.0)
[2019-12-02 14:12] LABS: ALBUMIN 2.5 g/dl (3.4-5.0); BILIRUBIN,TOTAL 0.2 mg/dL (0.2-1); CALCIUM 8.2 mg/dL (8.5-10.1); CREATININE 3.6 mg/dL (0.55-1.3); MAGNESIUM 1.5 mg/dL (1.8-2.4); PHOSPHOROUS 3.9 mg/dL (2.5-4.9); POTASSIUM 4.2 mmol/L (3.5-5.1); TOT PROT 6.1 g/dl (6.4-8.2)
[2019-12-02 15:18] VITALS: BP 139/62; TEMP 98.6
--- NOTE | 2019-12-02 15:34 | DS ---
Physical Exam: SUBJECTIVE: Patient seen and examined. Offers no complaints. No events overnight. OBJECTIVE: Vital Signs Period Temp Pulse Resp BP Sys/Chandra Pulse Ox Last 24 Hr 98 F-98.8 F 60-61 18-19 136-147/62-70 96-98 PHYSICAL EXAM GENERAL: in nad, comfortable in bed EYES: PERRL, conjunctiva clear. No ptosis. ENT: dry mucous membranes. Chest: vertical scar from CABG NECK: supple. LUNGS: decreased breath sounds HEART: RRR ABDOMEN: Soft, nontender, nondistended, normoactive bowel sounds EXTREMITIES: 2+ pulses, +edema LABS Laboratory Results - last 24 hr 12/01/19 12/01/19 12/01/19 16:30 16:39 21:10 WBC RBC Hgb Hct MCV MCH MCHC RDW Plt Count MPV PT with INR 13.30 H INR 1.13 H Sodium Potassium Chloride Carbon Dioxide Anion Gap BUN Creatinine Est GFR (CKD-EPI)AfAm Est GFR (CKD-EPI)NonAf POC Glucometer 160 143 Random Glucose Calcium Phosphorus Magnesium Total Bilirubin AST ALT Alkaline Phosphatase Total Protein Albumin 12/02/19 12/02/19 12/02/19 06:08 11:24 12:18 WBC 14.1 H RBC 3.28 L Hgb 8.9 L Hct 29.0 L MCV 88.6 MCH 27.3 MCHC 30.8 L RDW 15.8 Plt Count 272 MPV 9.2 PT with INR INR Sodium Potassium Chloride Carbon Dioxide Anion Gap BUN Creatinine Est GFR (CKD-EPI)AfAm Est GFR (CKD-EPI)NonAf POC Glucometer 85 94 Random Glucose Calcium Phosphorus Magnesium Total Bilirubin AST ALT Alkaline Phosphatase Total Protein Albumin 12/02/19 12:18 WBC RBC Hgb Hct MCV MCH MCHC RDW Plt Count MPV PT with INR INR Sodium 142 Potassium 4.2 Chloride 106 Carbon Dioxide 28 Anion Gap 8 BUN 74.0 H Creatinine 3.6 H Est GFR (CKD-EPI)AfAm 18.57 Est GFR (CKD-EPI)NonAf 16.02 POC Glucometer Random Glucose 138 H Calcium 8.2 L Phosphorus 3.9 Magnesium 1.5 L Total Bilirubin 0.2 AST 10 L ALT 26 Alkaline Phosphatase 253 H Total Protein 6.1 L Albumin 2.5 L HOSPITAL COURSE: Date of Admission:11/21/19 69-year-old man history of HFrEF CAD status post CABG 02/2019 ischemic cardiomyopathy ejection fraction of 29%, at baseline CKD stage III, type 2 diabetes mellitus CVA, status post pacemaker, recently transferred to [facility] after treated at [facility] on November 09, 2019 patient was admitted with BRANT uremic encephalopathy, received 1 dialysis patient also had melena, after first dialysis renal functions and urine output was improved. Patient then came back and was admitted with acute renal failure with hyperkalemia currently on hemodialysis. Improved on hemodialysis considering recurrent BRANT requiring hemodialysis. + REGINALD and double-stranded DNA positive. + myeloperoxidase Patient in agreement to follow up with his Primary care doctor and nephrology outpatient for further evaluation of his kidneys including biopsy results. Lisinopril was stopped. Eliquis stopped. Started on Coumadin. #Acute on chronic renal failure #CHF exacerbation-resolved #HTN #CAD #Dyslipidemia #S/P CABG #PPM #Volume Overload #Atrial Fibrillation Plan: -Unclear etiology, evaluated by abrasive worker, currently on hemodialysis REGINALD positive. -s/p biopsy 11/27 -awaiting pathology -REGINALD and DSDNA + -strict I/o's, daily weights -Lasix 40mg IV BID. now stopped. PRN lasix. -Kidney bladder US noted -fu cardio, renal reccs -will need rheumatology,cardio,pcp, and nephro follow up. Patient in agreement. Date of Discharge: 12/02/19 Minutes to complete discharge: 35 Discharge Summary Problems reviewed: Yes Reason For Visit: ACUTE ON CHRONIC RENAL FAILURE Current Active Problems Atrial fibrillation (Acute) GI bleed (Acute) Hypercholesterolemia (Acute) Hyperkalemia (Acute) Renal failure (ARF), acute on chronic (Acute) Supplemental oxygen dependent (Acute) Type 2 diabetes mellitus (Acute) Uremia (Acute) Condition: Stable - Instructions Diet, Activity, Other Instructions: You were admitted because of kidney failure which required you to have dialysis. You had a biopsy done and you will need follow up with your kidney doctor. You will need to follow up with your primary care physician in 2 days for lab work (INR check) You were started on Coumadin (a blood thinner). You will need to see your primary care doctor to check your INR level (a blood level) to make sure you are taking enough coumadin. You will take 7.5mg of coumadin (warfarin) tomorrow / and then 5mg after until you see your doctor in 2 days. It is very IMPORTANT that you follow up with your kidney doctor (Dr. Cobian in 1 week). It is also important that you follow up with your heart doctor. Referrals: Joseph Robles DO [Staff Physician] - Laurent Mckeon MD [Staff Physician] - 1 Week Ramos Cobian MD [Staff Physician] - 1 Week Vin Isbell MD [Primary Care Provider] - 1 Week Remi Houston MD, MD [Staff Physician] - 1 Week Disposition: HOME - Home Medications Comprehensive Discharge Medication List: Ambulatory Orders Fluticasone Propionate 16 gm NS DAILY 04/15/19 Rosuvastatin [Crestor -] 20 mg PO DAILY 04/15/19 Tamsulosin HCl [Flomax -] 0.4 mg PO DAILY 04/15/19 Metoprolol Succinate [Toprol XL -] 25 mg PO BID #60 tab.sr.24h 04/18/19 Oxycodone HCl 20 mg PO Q4H PRN 11/09/19 Pantoprazole Sodium 40 mg PO DAILY 11/09/19 Insulin Sliding Scale [Novolog Vial Sliding Scale -] See Protocol SQ ACHS #30 pen 12/02/19 Miscellaneous Medical Supply [Glucometer Device] 1 each .ROUTE ASDIR #1 kit 01/16 Warfarin Na [Coumadin -] 5 mg PO DAILY@1800 #30 tablet 12/02/19 Warfarin Sodium [Coumadin] 2.5 mg PO ONCE #1 tablet 12/02/19 This patient is new to me today: Yes Date on this admission: 12/03/19 Emergency Visit: Yes ED Registration Date: 11/21/19 Care time: The patient presented to the Emergency Department on the above date and was hospitalized for further evaluation of their emergent condition. Critical Care patient: No - Discharge Referral Referred to [facility] No ATTENDING PHYSICIAN STATEMENT I saw and evaluated the patient. I reviewed the resident's note and discussed the case with the resident. I agree with the resident's findings and plan as documented. SUBJECTIVE: OBJECTIVE: ASSESSMENT AND PLAN:
[2019-12-02] MEDS ORDERED: MAGNESIUM OXIDE 400 MG TABLET (FP) PO ONE (16:54)
--- NOTE | 2019-12-02 16:56 | PN ---
Progress Note, Physician History of Present Illness: Pt seen and examined at bedside. He is awake and alert. He denies shortness of breath. He is eager to go home. - Current Medication List Current Medications: Active Medications Acetaminophen (Tylenol -) 650 mg PO Q4H PRN PRN Reason: PAIN LEVEL 6-10 Last Admin: 12/02/19 13:49 Dose: 650 mg Fluticasone Propionate (Flonase -) 1 spray NS DAILY [facility] Last Admin: 12/02/19 09:02 Dose: 1 spray Sodium Chloride (Normal Saline -) 250 mls @ 3,000 mls/hr IV PRN PRN PRN Reason: Hypotension during Dialysis Stop: 11/27/19 18:20 Insulin Aspart (Novolog Vial Sliding Scale -) 1 vial SQ ACHS [facility]; Protocol Last Admin: 12/02/19 11:34 Dose: Not Given Magnesium Oxide (Mag-Ox -) 800 mg PO ONCE ONE Stop: 12/02/19 16:55 Melatonin (Melatonin) 5 mg PO DAILY@1999 [facility] Last Admin: 12/01/19 20:40 Dose: 5 mg Metoprolol Succinate (Toprol Xl -) 25 mg PO BID [facility] Last Admin: 12/02/19 09:02 Dose: 25 mg Oxycodone HCl (Roxicodone -) 20 mg PO Q4H PRN PRN Reason: PAIN LEVEL 6-10 Last Admin: 12/02/19 13:49 Dose: 20 mg Pantoprazole Sodium (Protonix -) 40 mg PO DAILY [facility] Last Admin: 12/02/19 09:01 Dose: 40 mg Rosuvastatin Calcium (Crestor -) 20 mg PO HS [facility] Last Admin: 12/01/19 21:10 Dose: 20 mg Tamsulosin HCl (Flomax -) 0.4 mg PO DAILY@0830 [facility] Last Admin: 12/02/19 09:01 Dose: 0.4 mg Warfarin Sodium (Coumadin -) 5 mg PO DAILY@1800 [facility] Last Admin: 12/01/19 18:16 Dose: 5 mg Warfarin Sodium (Coumadin -) 2.5 mg PO ONCE ONE Stop: 12/02/19 18:01 - Objective Vital Signs: Vital Signs Temperature 98.6 F 12/02/19 15:17 Pulse Rate 61 12/02/19 15:17 Respiratory Rate 18 12/02/19 15:17 Blood Pressure 139/62 12/02/19 15:17 O2 Sat by Pulse Oximetry (%) 98 12/02/19 09:00 Constitutional: Yes: Calm Eyes: Yes: Conjunctiva Clear HENT: Yes: Atraumatic Cardiovascular: Yes: S1, S2 Respiratory: Yes: CTA Bilaterally Gastrointestinal: Yes: Soft Genitourinary: Yes: WNL Musculoskeletal: Yes: WNL Edema: No Integumentary: Yes: WNL Neurological: Yes: Oriented Psychiatric: Yes: Oriented Labs: CBC, BMP 12/02/19 12:18 12/02/19 12:18 INR, PTT INR 1.13 (0.83-1.09) H 12/01/19 16:30 Problem List - Problems (1) Hyperkalemia Code(s): E87.5 - HYPERKALEMIA (2) Renal failure (ARF), acute on chronic Code(s): N17.9 - ACUTE KIDNEY FAILURE, UNSPECIFIED; N18.9 - CHRONIC KIDNEY DISEASE, UNSPECIFIED Qualifiers: Acute renal failure type: unspecified Chronic kidney disease stage: unspecified stage Qualified Code(s): N17.9 - Acute kidney failure, unspecified ; N18.9 - Chronic kidney disease, unspecified (3) Uremia Code(s): N19 - UNSPECIFIED KIDNEY FAILURE (4) BRANT (acute kidney injury) Code(s): N17.9 - ACUTE KIDNEY FAILURE, UNSPECIFIED (5) Abnormal chest x-ray Code(s): R93.8 - ABNORMAL FINDINGS ON [facility] [place] * DO NOT USE * Assessment/Plan Current Medications Generic Name Dose Route Start Last Admin Trade Name Christianoq PRN Reason Stop Dose Admin Acetaminophen 650 mg 11/26/19 15:13 12/02/19 13:49 Tylenol - PO 650 mg Q4H PRN Administration PAIN LEVEL 6-10 Fluticasone Propionate 1 spray 12/01/19 10:00 12/02/19 09:02 Flonase - NS 1 spray DAILY [facility] Administration Sodium Chloride 250 mls @ 3,000 mls/hr 11/26/19 18:20 Normal Saline - IV 11/27/19 18:20 PRN PRN Hypotension during Dialysis Insulin Aspart 1 vial 11/30/19 22:00 12/02/19 11:34 Novolog Vial Sliding Scale - SQ Not Given ACHS [facility] Protocol Magnesium Oxide 800 mg 12/02/19 16:54 Mag-Ox - PO 12/02/19 16:55 ONCE ONE Melatonin 5 mg 11/30/19 20:00 12/01/19 20:40 Melatonin PO 5 mg DAILY@2000 [facility] Administration Metoprolol Succinate 25 mg 11/30/19 22:00 12/02/19 09:02 Toprol Xl - PO 25 mg BID [facility] Administration Oxycodone HCl 20 mg 12/01/19 08:04 12/02/19 13:49 Roxicodone - PO 20 mg Q4H PRN Administration PAIN LEVEL 6-10 Pantoprazole Sodium 40 mg 12/01/19 10:00 12/02/19 09:01 Protonix - PO 40 mg DAILY [facility] Administration Rosuvastatin Calcium 20 mg 11/30/19 22:00 12/01/19 21:10 Crestor - PO 20 mg HS [facility] Administration Tamsulosin HCl 0.4 mg 12/01/19 08:30 12/02/19 09:01 Flomax - PO 0.4 mg DAILY@0830 [facility] Administration Warfarin Sodium 5 mg 11/30/19 18:00 12/01/19 18:16 Coumadin - PO 5 mg DAILY@1800 [facility] Administration Warfarin Sodium 2.5 mg 12/02/19 18:00 Coumadin - PO 12/02/19 18:01 ONCE ONE Impression 1. BRANT 2. hyperkalemia 3. copd 4. chf 5. uremia 6. fluid overload 7. cva 8. anemia 9. CKD Plan - will need close outpt follow up - no vasculitis on kidney biopsy - lasix prn - volume status stable - follow anti histone, can be done as outpt - do not restart hydralazine - check anti histone abs - will need outpt follow up
[2019-12-02] MEDS: WARFARIN NA 5 MG TABLET (UD) PO SCH (17:02)
[2019-12-02 17:11] VITALS: BMI 26.4
--- NOTE | 2019-12-02 17:17 | PN ---
Progress Note (short form) - Note Progress Note: s: no chest pain, palps, dizziness, dyspnea Current Medications Acetaminophen (Tylenol -) 650 mg PO Q4H PRN PRN Reason: PAIN LEVEL 6-10 Last Admin: 12/02/19 17:01 Dose: 650 mg Fluticasone Propionate (Flonase -) 1 spray NS DAILY [facility] Last Admin: 12/02/19 09:02 Dose: 1 spray Sodium Chloride (Normal Saline -) 250 mls @ 3,000 mls/hr IV PRN PRN PRN Reason: Hypotension during Dialysis Stop: 11/27/19 18:20 Insulin Aspart (Novolog Vial Sliding Scale -) 1 vial SQ ACHS [facility]; Protocol Last Admin: 12/02/19 11:34 Dose: Not Given Melatonin (Melatonin) 5 mg PO DAILY@2000 [facility] Last Admin: 12/01/19 20:40 Dose: 5 mg Metoprolol Succinate (Toprol Xl -) 25 mg PO BID [facility] Last Admin: 12/02/19 09:02 Dose: 25 mg Oxycodone HCl (Roxicodone -) 20 mg PO Q4H PRN PRN Reason: PAIN LEVEL 6-10 Last Admin: 12/02/19 17:00 Dose: 20 mg Pantoprazole Sodium (Protonix -) 40 mg PO DAILY [facility] Last Admin: 12/02/19 09:01 Dose: 40 mg Rosuvastatin Calcium (Crestor -) 20 mg PO HS [facility] Last Admin: 12/01/19 21:10 Dose: 20 mg Tamsulosin HCl (Flomax -) 0.4 mg PO DAILY@0830 [facility] Last Admin: 12/02/19 09:01 Dose: 0.4 mg Warfarin Sodium (Coumadin -) 5 mg PO DAILY@1800 [facility] Last Admin: 12/02/19 17:02 Dose: 5 mg Warfarin Sodium (Coumadin -) 2.5 mg PO ONCE ONE Stop: 12/02/19 18:01 Last Admin: 12/02/19 17:02 Dose: 2.5 mg Vital Signs Period Temp Pulse Resp BP Sys/Chandra Pulse Ox Last 24 Hr 98 F-98.8 F 60-61 18-19 136-147/62-70 96-98 Constitutional: Yes: No Distress, Calm Eyes: No: Sclera Icterus HENT: No: Nasal Congestion Cardiovascular: Yes: Regular Rate and Rhythm, S1, S2, Other (PMI non diplaced). No: Gallop, Murmur Respiratory: Yes: CTA Bilaterally. No: Accessory Muscle Use, Rales, Wheezes Gastrointestinal: Yes: Normal Bowel Sounds, Soft. No: Tenderness Musculoskeletal: Yes: Other (No kyphosis) Extremities: No: Cold Edema: No Integumentary: No: Jaundice Neurological: Yes: Alert, Oriented (x3) Psychiatric: No: Agitated Assessment/Plan Echo 11/11/2019: Severe LV dysfunction, EF < 35%. Mild PHTN. AVS Lexiscan MPI 11/12/2019: Large fixed anterior wall, apical, distal septal and distal inferior wall scar. No ischemia, EF 31% IMP: Acute on chronic renal failure now back on HD this admission Hyperkalemia secondary to above-resolved CAD s/p multiple MIs, PCIs and CABG (02/2019 at [facility])--no signs ACS here Ischemic CM with chronic systolic systolic (LVEF < 35%) PAF, off AC secondary to recent GI bleeds (no source identified) PPM History of CVA ' +REGINALD/antiDS DNA Anemia REC: -s/p renal biopsy showing chronic changes. HD as per renal. appears euvolemic, observe -cont holding Lisinopril in setting ARF/hyperK -Continue home statin and Metoprolol for chronic CAD/systolic CHF/AF (unless BP limits use). -H/H stable, GI following -[id number] score is high (including prior CVAs) and AC is warranted. however , recent GIB here w/drop in H/H and guaiac + stool that was not fully investigated with endoscopic evaluation ([facility] admit) as patient deemed high risk for scope and H/H stabilized then. -dr bro saeed appreciated, 08/17 EGD from [facility] reviewed showing erosions felt to be bleeding culprit, rec'd avoidance of NSAIDs, PPI. ? h. pylori results , to be f/u'd and treated if indicated. -GI disc'd options with pt and and they are presently deferring high-risk endoscopy, preferring instead to try re-challenge with AC with close monitoring. i d/w'd sarah today as well: he understands very hi risk of stroke if just treat with ASA here. he understands hi likelihood of recurrent bleeding with AC, as well as incr'd risk of CV complications from scopes. wishes to forego scopes and resume AC. -cont warfarin 5mg and re-institute home apex labs for INR (and H/H) via Dr Isbell , as was previously being done prior to cessation of AC. (prefer warfarin here given rapid reversibility if needed, as this was apparently being done satisfactorily previously as outpt) -ASA dc'ed to avoid incr bleeding risk -cont PPI per GI -Watchman implant would be an option although without definition of GI tract prior to the implant, it would be uncertain whether he could tolerate 6 weeks of NOAC and then 6 wks DAPT uninterrupted following the procedure. Additionally , with severely reduced LVEF, his risk of LV thrombus is substantial and renders LA appendage closure less useful.
[2019-12-02] MEDS ORDERED: WARFARIN NA 2.5 MG TABLET (FP) PO ONE (18:00)
--- NOTE | 2019-12-02 18:19 | PN ---
Teaching Attending Note Name of Resident: Ynes Conway ATTENDING PHYSICIAN STATEMENT I saw and evaluated the patient. I reviewed the resident's note and discussed the case with the resident. I agree with the resident's findings and plan as documented. 69-year-old man history of HFrEF CAD status post CABG 02/2019 ischemic cardiomyopathy ejection fraction of 29%, at baseline CKD stage III, type 2 diabetes mellitus CVA, status post pacemaker, recently transferred to [facility] after treated at [facility] on November 09, 2019 patient was admitted with BRANT uremic encephalopathy, received 1 dialysis patient also had melena, after first dialysis renal functions and urine output was improved. Admitted for worsening renal failure, s/p biopsy awaiting results. Patient renal function now stabilized post HD, cleared by renal service to follow up in clinic. Patient feels well, tolerating PO, ambulating around unit, NAD. GENERAL: in nad, comfortable in bed EYES: PERRL, conjunctiva clear. EOMI ENT: dry mucous membranes. Chest: vertical scar from CABG, no crackles or wheezing NECK: supple. HEART: RRR, S1, S2+ ABDOMEN: Soft, nontender, nondistended, normoactive bowel sounds EXTREMITIES: 2+ pulses, +edema Vital Signs - 24 hr 12/01/19 12/01/19 12/02/19 20:46 21:00 05:38 Temperature 98.8 F 98.7 F Pulse Rate 60 60 Respiratory 19 18 Rate Blood Pressure 141/67 136/70 O2 Sat by Pulse 96 Oximetry (%) 12/02/19 12/02/19 12/02/19 09:00 10:00 15:17 Temperature 98 F 98.6 F Pulse Rate 61 61 Respiratory 18 18 18 Rate Blood Pressure 147/70 139/62 O2 Sat by Pulse 98 Oximetry (%) Microbiology 11/21/19 12:05 Urine - Urine Dupree Urine Culture - Final NO GROWTH OBTAINED Laboratory Results - last 24 hr 12/01/19 12/02/19 12/02/19 21:10 06:08 11:24 WBC RBC Hgb Hct MCV MCH MCHC RDW Plt Count MPV Sodium Potassium Chloride Carbon Dioxide Anion Gap BUN Creatinine Est GFR (CKD-EPI)AfAm Est GFR (CKD-EPI)NonAf POC Glucometer 143 85 94 Random Glucose Calcium Phosphorus Magnesium Total Bilirubin AST ALT Alkaline Phosphatase Total Protein Albumin 02/01/1612/02/19 12/02/19 12:18 12:18 17:08 WBC 14.1 H RBC 3.28 L Hgb 8.9 L Hct 29.0 L MCV 88.6 MCH 27.3 MCHC 30.8 L RDW 15.8 Plt Count 272 MPV 9.2 Sodium 142 Potassium 4.2 Chloride 106 Carbon Dioxide 28 Anion Gap 8 BUN 74.0 H Creatinine 3.6 H Est GFR (CKD-EPI)AfAm 18.57 Est GFR (CKD-EPI)NonAf 16.02 POC Glucometer 151 Random Glucose 138 H Calcium 8.2 L Phosphorus 3.9 Magnesium 1.5 L Total Bilirubin 0.2 AST 10 L ALT 26 Alkaline Phosphatase 253 H Total Protein 6.1 L Albumin 2.5 L Home Medications Medication Instructions Recorded Fluticasone Propionate 16 gm NS DAILY 04/15/19 Rosuvastatin [Crestor -] 20 mg PO DAILY 04/15/19 Tamsulosin HCl [Flomax -] 0.4 mg PO DAILY 04/15/19 Metoprolol Succinate [Toprol XL -] 25 mg PO BID #60 tab.sr.24h 04/18/19 Oxycodone HCl 20 mg PO Q4H PRN 11/09/19 Pantoprazole Sodium 40 mg PO DAILY 11/09/19 Insulin Sliding Scale [Novolog See Protocol SQ ACHS #30 pen 12/02/19 Vial Sliding Scale -] Miscellaneous Medical Supply 1 each .ROUTE ASDIR #1 kit 12/02/19 [Glucometer Device] Warfarin Na [Coumadin -] 5 mg PO DAILY@1800 #30 tablet 12/02/19 Warfarin Sodium [Coumadin] 2.5 mg PO ONCE #1 tablet 12/02/19 A/P: 69-year-old man history of HFrEF CAD status post CABG 02/2019 ischemic cardiomyopathy ejection fraction of 29%, at baseline CKD stage III, type 2 diabetes mellitus CVA, status post pacemaker, admitted for worsening renal failure, s/p renal biopsy. Awaiting biopsy results now stable for discharge. Worsening renal failure unknown origin, suspected mixed picture with microvascular vessel disease and some features of ATN (as per preliminary biopsy report) s/p HD renal function now stablized, CRE: 3.6, no uremic symptoms or signs of overload at current, electrolytes stable Patient cleared by renal for discharge and to follow up in renal clinic Renal consult Dr Samarneh HFrEF resume home HF meds, advised fluid restriction HTN resume home bP meds T2DM resume DM meds HLD resume statin Afib resume BB, AC, currently rate conterolled Disposition: Patient cleared for DC home, he will need rheumatology, cardiology , renal and PCP follow up.
[2019-12-03 17:07] LABS: ATYPICAL pANCA <1:20 titer (Neg:<1:20); C-ANCA <1:20 titer (Neg:<1:20)
--- NOTE | 2019-12-18 10:58 | PATH ---
Surgical Pathology Report Patient Name: MERVAT [facility]. Rec. #: [id number] /Age/Gender: 1950 (Age: 69) / M Account: [id number] Location: [address] [place] [address]/[facility] Taken: 11/27/2019 Received: 11/27/2019 Reported: 12/18/2019 Physicians: Ernesto Kitchen M.D. Specimen(s) Received RENAL BIOPSY Clinical History 69-year-old male with history of COPD, hypertension, CAD, CHF, CKD and DM now with AKD Intraoperative Consult Diagnosis Kidney biopsy: Glomeruli present. Cory Deluna M.D., 11/27/2019 Final Diagnosis RENAL, BIOPSY: SMALL CORTICAL SAMPLE FOR LIGHT MICROSCOPY WITH; DIFFUSE GLOBAL GLOMERULOSCLEROSIS, ADVANCED, WITH FOCAL MILD NODULAR MESANGIAL SCLEROSING FEATURES. TUBULAR ATROPHY AND INTERSTITIAL FIBROSIS, SEVERE, WITH DIFFUSE ACUTE TUBULAR INJURY. ARTERIO-AND ARTERIOLOSCLEROSIS, SEVERE. SEE COMMENT. Comment: The immunofluorescence findings provide evidence against glomerular disease of the immune complex type. The findings by light microscopy are consistent with mild nodular diabetic glomerulosclerosis and a more significant and advanced component of arterionephrosclerosis, correlating with the history of hypertension, peripheral vascular disease and prior tobacco use. While there is component of acute tubular injury (which may be ischemic or toxic in nature), the advanced degree of tubulointerstitial scarring is a poor prognostic feature. The history of MPO-ANCA seropositivity is noted; However, no evidence of ANCA-mediated renal disease is seen in the tissue provided. Of note; mixed autoantibody seropositivity (including REGINALD, ANCA, and anti-histone antibody) may occur in setting of hydralazine - induced autoimmunity. Case sent for consultation to Dr. Arjun Melendrez from [place], [place] ([id number]), the diagnosis above reflects his opinion. IMMUNOFLUORESCENCE (PROCEDURE): INTERPRETATION: GLOMERULI TUBULES INTERSTITIUM VESSELS IgG 2 sclerotic gloms neg neg neg neg(+4 sclerotic) IgM 2 gloms +/- neg neg neg global tuft IgA 2 gloms neg casts 2+ neg neg C3 2 gloms +/- neg neg neg global tuft C1 2 gloms neg neg neg neg FBGN 2 gloms neg neg neg neg ALB 2 gloms neg neg neg neg KAPPA 2 gloms neg casts 2+ neg neg LAMBDA 2 gloms neg casts 2+ neg neg Positive and negative controls show appropriate reactivity. See complete report from [place], [place] for additional details. Electronically Signed Saray Stubbs M.D. Microscopic Description Sections are stained with H&E, PAS, trichrome, and JMS. Sections show 1 small core of cortex. Twelve (12) glomeruli are identified, 9 of which are globally sclerotic. One (1) glomerulus shows global ischemic retraction of the tuft and a segmental scar, as well as periglomerular fibrosis. The remaining 2 glomeruli are enlarged and show mild to moderate, diffuse and global increase in mesangial matrix with focal mesangial nodule formation. Glomerular capillary lumina are paten. Glomerular basement membranes are thickened by matrix material. Bustillo's capsule is thickened by matrix material. Severe tubular atrophy and interstitial fibrosis involve 75% of the cortex. Non atrophic tubules are acutely injured with luminal ectasia, epithelial simplification, coarse clear intracytoplasmic vacuolization, and enlarged nuclei with prominent nucleoli. Mild chronic interstitial inflammation is limited to zones of tubulointerstitial scarring. There is no lymphocytic tubulitis. Small caliber arteries and arterioles exhibit severe intimal sclerosis and mural hyalinosis. Gross Description Received in saline labeled "renal biopsy," are 2 henderson-red, cylindrical portions of soft tissue measuring 0.2 and 1.0 cm in length and averaging 0.1 cm in diameter. The specimen is divided, placed into 10% buffered formalin, Rashad fixative and glutaraldehyde. The specimen is sent to [facility] for further studies. 11/27/2019 saudi11/27/2019
== END 2019-12-02 18:38 | disposition home or self-care (01) | DRG 682 ==
LOC: JER 10:56 → JERBED 14:13 → J4W 20:02 → J6S 11-30 17:02
PROC: 5A1D70Z Performance of Urinary Filtration, Intermittent, Less than 6 Hours Per Day (ICD-10-PCS; 2019-11-22)
PROC: 02H633Z Insertion of Infusion Device into Right Atrium, Percutaneous Approach (ICD-10-PCS; principal; 2019-11-27)
PROC: B548ZZA Ultrasonography of Superior Vena Cava, Guidance (ICD-10-PCS; 2019-11-27)
DX: N17.9 Acute kidney failure, unspecified (principal); I50.23 Acute on chronic systolic (congestive) heart failure; I13.0 Hypertensive heart and chronic kidney disease with heart failure and stage 1 through stage 4 chronic kidney disease, or unspecified chronic kidney disease; E87.5 Hyperkalemia; J44.9 Chronic obstructive pulmonary disease, unspecified; Z99.81 Dependence on supplemental oxygen; I25.10 Atherosclerotic heart disease of native coronary artery without angina pectoris; E11.22 Type 2 diabetes mellitus with diabetic chronic kidney disease; E78.5 Hyperlipidemia, unspecified; Z86.73 Personal history of transient ischemic attack (TIA), and cerebral infarction without residual deficits; I44.0 Atrioventricular block, first degree; I45.10 Unspecified right bundle-branch block; Z95.1 Presence of aortocoronary bypass graft; Z95.0 Presence of cardiac pacemaker; Z87.891 Personal history of nicotine dependence; I48.91 Unspecified atrial fibrillation; E78.00 Pure hypercholesterolemia, unspecified; I25.5 Ischemic cardiomyopathy; I48.0 Paroxysmal atrial fibrillation; E11.40 Type 2 diabetes mellitus with diabetic neuropathy, unspecified; N18.2 Chronic kidney disease, stage 2 (mild); I25.2 Old myocardial infarction; D64.9 Anemia, unspecified; N18.3 Chronic kidney disease, stage 3 (moderate)
CPT/HCPCS: 36415; 50200; 71045-TC-FY; 76705-TC; 76775-TC; 76942-TC; 80048; 80053; 80076; 80307; 81003; 82436; 82550; 82565; 82962; 83516; 83520; 83735; 83880; 84100; 84133; 84155; 84165; 84300; 84484; 84540; 85025; 85027; 85610; 85730; 86038; 86160; 86225; 86235; 86256; 86704; 86706; 86707; 86708; 86709; 86803; 86850; 86900; 86901; 87086; 87340; 87522; 88300-TC; 93005; 93010; 93971-TC; 97116-GP; 97161-GP; 99285-25; J0131; J0885; J1644

== ENCOUNTER 2019-12-09 16:01 | Inpatient (IN) | payer OTHER ==
--- NOTE | 2019-12-09 17:35 | PDOC ---
History of Present Illness - General Chief Complaint: Abnormal Lab Results (Outside) Stated Complaint: KIDNEY FAILURE Time Seen by Provider: 12/09/19 16:50 History Source: Patient Exam Limitations: No Limitations - History of Present Illness Initial Comments: 12/09/19 17:11 69 pmh HFrEF CAD status post CABG 02/2019 ischemic cardiomyopathy, ejection fraction of 29%, at baseline CKD stage III, type 2 diabetes mellitus CVA, status post pacemaker, requires 4L home O2 and recent admission for emergent dialysis and anemia presents to the ED for confusion, bilateral lower limb swelling and abnormal renal function labs as per PCP Isbell. Call received by Dr. Cobian prior to evaluation, states pt renal biopsy shows very little functional kidney left and will likely need dialysis. No dialysis site at this time, will determine if emergent dialysis vs inpatient hospital ialysis needed (Trialysis cath vs fistuala) Pt reports worsening confusion and bilateral edema since discharge from hospital monday. Denies F/C/N/V, abdominal pain, CP, SOB, changes in bowel or bladder habits. Average urine output of 200 ml Past History - Past Medical History Allergies/Adverse Reactions: Allergies Allergy/AdvReac Type Severity Reaction Status Date / Time No Known Allergies Allergy Verified 12/09/19 16:39 Home Medications: Ambulatory Orders Fluticasone Propionate 16 gm NS DAILY 04/15/19 Rosuvastatin [Crestor -] 20 mg PO DAILY 04/15/19 Tamsulosin HCl [Flomax -] 0.4 mg PO DAILY 04/15/19 Metoprolol Succinate [Toprol XL -] 25 mg PO BID #60 tab.sr.24h 04/18/19 Oxycodone HCl 20 mg PO Q4H PRN 11/09/19 Pantoprazole Sodium 40 mg PO DAILY 11/09/19 Insulin Sliding Scale [Novolog Vial Sliding Scale -] See Protocol SQ ACHS #30 pen 12/02/19 Miscellaneous Medical Supply [Glucometer Device] 1 each .ROUTE ASDIR #1 kit 01/16 Warfarin Na [Coumadin -] 5 mg PO DAILY@1800 #30 tablet 12/02/19 Warfarin Sodium [Coumadin] 2.5 mg PO ONCE #1 tablet 12/02/19 Anemia: No Asthma: No Cancer: No Cardiac Disorders: Yes (9 stents, ME, CAD, cardiomyopathy) CVA: Yes (x 2) COPD: Yes CHF: No Dementia: No Diabetes: Yes GI Disorders: Yes (colitis, GERD) Disorders: Yes HTN: Yes Hypercholesterolemia: Yes Kidney Stones: Yes Liver Disease: No Seizures: No Thyroid Disease: No - Surgical History Abdominal Surgery: No Appendectomy: No Cardiac Surgery: Yes (stents x 9, CABG X4) Cholecystectomy: No Lung Surgery: No Neurologic Surgery: No Orthopedic Surgery: Yes (LEFT HIP) - Immunization History Immunization Up to Date: No - Psycho Social/Smoking Cessation Hx Smoking Status: No Smoking History: Former smoker Have you smoked in the past 12 months: No Number of Cigarettes Smoked Daily: 30 If you are a former smoker, when did you quit?: 3 years Cigars Per Day: 0 Information on smoking cessation initiated: No 'Breaking Loose' booklet given: 01/12/17 Hx Alcohol Use: No Drug/Substance Use Hx: No Substance Use Type: None Hx Substance Use Treatment: No Review of Systems - Review of Systems Constitutional: Yes: See HPI HEENTM: Yes: See HPI Respiratory: Yes: See HPI Cardiac (ROS): Yes: See HPI ABD/GI: Yes: See HPI : Yes: See HPI Musculoskeletal: Yes: See HPI Integumentary: Yes: See HPI Neurological: Yes: See HPI *Physical Exam - Vital Signs Last Vital Signs Temp Pulse Resp BP Pulse Ox 98.7 F 69 18 102/61 98 12/09/19 16:37 12/09/19 16:37 12/09/19 16:37 12/09/19 16:37 12/09/19 16:37 - Physical Exam General Appearance: Yes: Nourished, Appropriately Dressed. No: Apparent Distress HEENT: positive: EOMI Neck: positive: Supple. negative: Carotid bruit Respiratory/Chest: positive: Lungs Clear. negative: Crackles, Rhonchi, Stridor , Wheezing Cardiovascular: positive: Regular Rhythm, Regular Rate, S1, S2, Edema. negative : JVD, Murmur Vascular Pulses: Dorsalis-Pedis (R): 3+, Doralis-Pedis (L): 3+ Gastrointestinal/Abdominal: positive: Flat, Soft. negative: Pulsatile Mass, Protuberent, Distended, Guarding, Rebound, Tenderness Musculoskeletal: negative: CVA Tenderness Extremity: positive: Normal Capillary Refill, Normal Inspection, Normal Range of Motion Integumentary: positive: Normal Color, Dry, Warm Neurologic: positive: Fully Oriented, Alert, Normal Mood/Affect, Normal Response , Motor Strength 03/03 ED Treatment Course - LABORATORY CBC & Chemistry Diagram: 12/09/19 19:00 12/09/19 18:57 Medical Decision Making - Medical Decision Making 12/09/19 20:29 69 pmh HFrEF CAD status post CABG 02/2019 ischemic cardiomyopathy, ejection fraction of 29%, at baseline CKD stage III, type 2 diabetes mellitus CVA, status post pacemaker, requires 4L home O2 and recent admission for emergent dialysis and anemia presents to the ED for confusion, bilateral lower limb swelling and abnormal renal function labs as per PCP Sukhi. Call received by Dr. Cobian prior to evaluation, states pt renal biopsy shows very little functional kidney left and will likely need dialysis. No dialysis site at this time, will determine if emergent dialysis vs inpatient hospital ialysis needed (Trialysis cath vs fistuala) Pt reports worsening confusion and bilateral edema since discharge from hospital monday. Denies F/C/N/V, abdominal pain, CP, SOB, changes in bowel or bladder habits. Average urine output of 200 ml vitals WNL EKG NSR without hyper acute T waves or concerning signs for elevated K Labs show elevated renal function, discussed with Nephro, states Lokelma 10 mh and Lasix IV 80 mg and admission for dialysis and permacath by Dr. Carson 12/09/19 21:32 S/O to hospitalist, accepted pt for admission Discharge - Discharge Information Problems reviewed: Yes Clinical Impression/Diagnosis: CKD (chronic kidney disease) Qualifiers: Chronic kidney disease stage: stage 3 (moderate) Qualified Code(s): N18.3 - Chronic kidney disease, stage 3 (moderate) Condition: Stable - Admission Yes - Follow up/Referral Referrals: Vin Isbell MD [Primary Care Provider] - - Patient Discharge Instructions - Post Discharge Activity
--- NOTE | 2019-12-09 17:35 | PDOC ---
Attending Attestation - Resident Resident Name: CharisGarret - ED Attending Attestation I have performed the following: I have examined & evaluated the patient, The case was reviewed & discussed with the resident, I agree w/resident's findings & plan, Exceptions are as noted - HPI HPI: 12/09/19 17:34 69y M hx of COPD (Home O2), ESRD, CAD, HTN, HL, CHF, DM, prior CVA, presents with complaint of abnormal labs. Pt recently had ada requiring dialysis in october, has been having labs checked by PMD who sent pt to the ED for evlaution of abnormal labs. Family notes that the patient has beeen more sleepy than usual, started having a this tick=like jerky indu , increased leg swelling. and generally weaker the past 3 days. Pt also endorses some nausea. Family states that this is how the patient was during his prior presentation. Patient denies any other complaints including chest pain, abdominal pain. PMD Dr. Isbell Renal: Dr. Cobian - Physicial Exam PE: 12/09/19 17:57 GENERAL: The patient is awake, alert, and fully oriented, Nontoxic - in no acute distress. HEAD: Normocephalic, atraumatic. EYES: extraocular movements intact, sclera anicteric, conjunctiva clear. ENT: Normal voice, Moist mucous membranes. NECK: Normal range of motion, supple LUNGS: Breath sounds equal, clear to auscultation bilaterally. No wheezes, no rhonchi, no rales. HEART: Regular rate and rhythm, normal S1 and S2 without murmur, rub or gallop. ABDOMEN: Soft, nontender, No guarding, no rebound. No CVA tenderness EXTREMITIES: Normal range of motion, b/l LE edema. NEUROLOGICAL: No facial assymetry, Normal speech, moving all 4 extremities sponatneously and symmetrically, intermittent twitching of extremities PSYCH: Normal mood, normal affect. SKIN: Warm, Dry, normal turgor, - Medical Decision Making 12/09/19 17:58 Will obtain repeat blood work to evaluate creatinine, electrolytes If patient needs emergent dialysis will discuss with renal Awaiting chest x-ray and EKG 12/09/19 18:58 awaiting lab work signed ou tto evening team to reasess and disposition
[2019-12-09 19:28] LABS: BASO % 1.3 % (0-2.0); EOS % 1.1 % (0-4.5); HEMATOCRIT 25.2 % (35.4-49); LYMPH % 5.8 % (8-40); MCHC 31.8 g/dl (32.0-35.9); MEAN CELL VOLUME 87.8 fl (80-96); MEAN PLT VOLUME 9.1 fl (7.5-11.1); MONO % 7.4 % (3.8-10.2); NEUT % 84.4 % (42.8-82.8); PLATELET COUNT 316 K/MM3 (134-434); RBC 2.88 M/mm3 (4.00-5.60); RDW 16.4 % (11.9-15.9); WHITE BLOOD COUNT 9.7 K/mm3 (4.0-10.0)
[2019-12-09 19:42] LABS: INR 2.59 (0.83-1.09); PROTHROMBIN TIME (PATIENT) 30.8 SEC (9.7-13.0)
[2019-12-09 19:58] LABS: ALBUMIN 2.8 g/dl (3.4-5.0); BILIRUBIN,TOTAL 0.2 mg/dL (0.2-1); CREATININE 4.4 mg/dL (0.55-1.3); POTASSIUM 5.6 mmol/L (3.5-5.1); TOT PROT 6.4 g/dl (6.4-8.2)
[2019-12-09 20:04] LABS: BLOOD UREA NITROGEN 122.8 mg/dL (7-18)
[2019-12-09] MEDS ORDERED: FUROSEMIDE 40 MG/4 ML INJECTABLE VIAL IVPUSH ONE (20:20)
--- NOTE | 2019-12-09 21:31 | CONSULT ---
Consult Consult Specialty:: Nephrology Reason for Consultation:: BRANT - History of Present Illness Chief Complaint: sent in for abnormal labs History of Present Illness: Pt is a 69 year old male with pmhx of copd, ckd, brant requiring hd, chf, hld, cva who presents with abnormal labs. He says that he feels the way he felt before needing dialysis the last few times. He has decreased appetite. He is unsteady. He denies shortness of breath but has lower ext edema. He denies fevers or chills. 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 No: Asthma, Pulmonary Embolus, Pulmonary Fibrosis Gastrointestinal: Yes: GERD, Other (Recent GIB) Renal/: Yes: Renal Failure, Renal Inusuff, Other Infectious Disease: Yes: MRSA Psych: Yes: Addictions Musculoskeletal: Yes: Other, Other Endocrine: Yes: Diabetes Mellitus - Past Surgical History Past Surgical History: Yes: CABG (4v), Permanent Pacemaker, Stent (PCIX5) - Alcohol/Substance Use Hx Alcohol Use: No History of Substance Use: reports: None - Smoking History Smoking history: Former smoker Have you smoked in the past 12 months: No Aproximately how many cigarettes per day: 30 If you are a former smoker, when did you quit?: 3 years - Social History Usual Living Arrangement: With Spouse ADL: Family Assistance History of Recent Travel: No Home Medications - Allergies Allergies/Adverse Reactions: Allergies Allergy/AdvReac Type Severity Reaction Status Date / Time No Known Allergies Allergy Verified 12/09/19 16:39 - Home Medications Home Medications: Ambulatory Orders Fluticasone Propionate 16 gm NS DAILY 04/15/19 Rosuvastatin [Crestor -] 20 mg PO DAILY 04/15/19 Tamsulosin HCl [Flomax -] 0.4 mg PO DAILY 04/15/19 Metoprolol Succinate [Toprol XL -] 25 mg PO BID #60 tab.sr.24h 04/18/19 Oxycodone HCl 20 mg PO Q4H PRN 11/09/19 Pantoprazole Sodium 40 mg PO DAILY 11/09/19 Insulin Sliding Scale [Novolog Vial Sliding Scale -] See Protocol SQ ACHS #30 pen 12/02/19 Miscellaneous Medical Supply [Glucometer Device] 1 each .ROUTE ASDIR #1 kit 01/16 Warfarin Na [Coumadin -] 5 mg PO DAILY@1800 #30 tablet 12/02/19 Warfarin Sodium [Coumadin] 2.5 mg PO ONCE #1 tablet 12/02/19 Family Medical History Family History: Denies Review of Systems - Review of Systems Constitutional: reports: Malaise Eyes: reports: No Symptoms HENT: reports: No Symptoms Neck: reports: No Symptoms Cardiovascular: reports: Edema Respiratory: reports: SOB on Exertion Genitourinary: reports: No Symptoms Musculoskeletal: reports: No Symptoms Integumentary: reports: No Symptoms Neurological: reports: No Symptoms Endocrine: reports: No Symptoms Hematology/Lymphatic: reports: No Symptoms Psychiatric: reports: No Symptoms Physical Exam Vital Signs: Vital Signs Temperature 98.7 F 12/09/19 16:37 Pulse Rate 69 12/09/19 16:37 Respiratory Rate 18 12/09/19 16:37 Blood Pressure 102/61 12/09/19 16:37 O2 Sat by Pulse Oximetry (%) 98 12/09/19 16:37 Constitutional: Yes: Calm Eyes: Yes: Conjunctiva Clear HENT: Yes: Atraumatic Neck: Yes: Supple Cardiovascular: Yes: S1, S2 Respiratory: Yes: CTA Bilaterally Gastrointestinal: Yes: Soft Musculoskeletal: Yes: WNL Edema: Yes Edema: LLE: 2+, RLE: 2+ Neurological: Yes: Oriented Psychiatric: Yes: Oriented Labs: CBC, BMP 12/09/19 19:00 12/09/19 18:57 Laboratory Tests 11/28/19 11/29/19 11/29/19 06:11 06:38 06:38 c-ANCA Pending Proteinase 3 (PR3) Pending p-ANCA Pending Atypical p-ANCA Pending Myeloperoxidase Ab Pending Histone Antibodies Pending Complement C3 110 Complement C4 38 Imaging - Results Chest X-ray: Report Reviewed Problem List - Problems (1) BRANT (acute kidney injury) Code(s): N17.9 - ACUTE KIDNEY FAILURE, UNSPECIFIED Assessment/Plan Current Medications Generic Name Dose Route Start Last Admin Trade Name Freq PRN Reason Stop Dose Admin Sodium Zirconium Cyclosilicate 10 gm 12/09/19 20:30 Lokelma PO DAILY RADHA Impression 1. CKD 2. hyperkalemia 3. copd 4. chf 5. uremia 6. fluid overload 7. cva 8. anemia 9. BRANT Plan - vascular eval for permacath - admit to hospital - treat potassium medically - give a dose of lasix - repeat labs in am - anti histone ab are positive, hydralazine stopped - kidney biopsy done on last admission
[2019-12-09 21:32] LABS: PLATELET ESTIMATE ADEQUATE
--- NOTE | 2019-12-09 21:43 | HP ---
CHIEF COMPLAINT: Abnormal labs PCP: Dr. Isbell HISTORY OF PRESENT ILLNESS: 69 PMH HfrEF CAD s/p CABG (03/17), ischemic cardiomyopathy (EF 30-35%), s/p PPM, 1st degree AV block, CKD stage III, CVA, COPD on home oxygen 4L who presents today from his PCP after finding abnormal renal labs. Patient is confused and not able to clearly describe events leading to his presentation to the [facility] ED. Spoke with his , Ingris, who describes patient as having shaking and tremors for the past 3 days, along with lethargy. She describes these symptoms to have occurred before when he was admitted for emergent dialysis. His tremor and tick have worsened gradually to the point where he cannot hold objects in his hands without dropping them. He endorses pain in b/l legs, and back pain, which is chronic. He denies chest pain, shortness of breath, abdominal pain, nausea, vomiting, diarrhea. Last dialyzed on 12/02/19 according to . ER course was notable for: (1) Lasix 80 mg was given (2) Chest X-Ray was completed: no acute chest pathololgy. EKG showed paced rhythm without hyperacute T waves. (3) Patient was hyperkalemic to 5.6- Lokelma (10), Insulin (10), and D50, and 1 gram calcium were given. Recent Travel: None PAST MEDICAL HISTORY: HfrEF CAD s/p CABG (03/17), ischemic cardiomyopathy, s/p PPM, 1st degree AV block , CKD stage III, CVA, COPD on home oxygen 4L PAST SURGICAL HISTORY: CABG, PPM placement Social History: Smoking: former smoker- quit 3 years ago. Used to smoke 5 packs day. Alcohol: Denies Drugs: Denies Allergies No Known Allergies Allergy (Verified 12/09/19 16:39) HOME MEDICATIONS: Home Medications Medication Instructions Recorded Fluticasone Propionate 16 gm NS DAILY 04/15/19 Rosuvastatin [Crestor -] 20 mg PO DAILY 04/15/19 Tamsulosin HCl [Flomax -] 0.4 mg PO DAILY 04/15/19 Metoprolol Succinate [Toprol XL -] 25 mg PO BID #60 tab.sr.24h 04/18/19 Oxycodone HCl 20 mg PO Q4H PRN 01/11/20 Pantoprazole Sodium 40 mg PO DAILY 11/09/19 Insulin Sliding Scale [Novolog See Protocol SQ ACHS #30 pen 12/02/19 Vial Sliding Scale -] Miscellaneous Medical Supply 1 each .ROUTE ASDIR #1 kit 12/02/19 [Glucometer Device] Warfarin Na [Coumadin -] 5 mg PO DAILY@1800 #30 tablet 12/02/19 Warfarin Sodium [Coumadin] 2.5 mg PO ONCE #1 tablet 12/02/19 REVIEW OF SYSTEMS CONSTITUTIONAL: Absent: fever, chills, diaphoresis, generalized weakness, malaise, loss of appetite, weight change HEENT: Absent: rhinorrhea, nasal congestion, throat pain, throat swelling, difficulty swallowing, mouth swelling, ear pain, eye pain, visual changes CARDIOVASCULAR: Absent: chest pain, syncope, palpitations, irregular heart rate, lightheadedness , peripheral edema RESPIRATORY: Absent: cough, shortness of breath, dyspnea with exertion, orthopnea, wheezing, stridor, hemoptysis GASTROINTESTINAL: Absent: abdominal pain, abdominal distension, nausea, vomiting, diarrhea, constipation, melena, hematochezia GENITOURINARY: Absent: dysuria, frequency, urgency, hesitancy, hematuria, flank pain, genital pain MUSCULOSKELETAL: chronic back pain, chronic neck pain. Absent: myalgia, arthralgia, joint swelling, SKIN: bruising on arms attributed to blood thinning medications. Absent: rash, itching, pallor HEMATOLOGIC/IMMUNOLOGIC: Absent: easy bleeding, easy bruising, lymphadenopathy, frequent infections ENDOCRINE: Absent: unexplained weight gain, unexplained weight loss, heat intolerance, cold intolerance NEUROLOGIC: chronic numbness in feet, b/l tremors Absent: headache, dizziness, unsteady gait, seizure, mental status changes, bladder or bowel incontinence PSYCHIATRIC: Absent: anxiety, depression, suicidal or homicidal ideation, hallucinations. PHYSICAL EXAMINATION Vital Signs - 24 hr 12/09/19 16:37 Temperature 98.7 F Pulse Rate 69 Respiratory 18 Rate Blood Pressure 102/61 O2 Sat by Pulse 98 Oximetry (%) GENERAL: Awake, AAOx3. Has difficulty continuing conversation. HEAD: Normal with no signs of trauma. EYES: Pupils equal, round and reactive to light, extraocular movements intact, sclera anicteric EARS, NOSE, THROAT: Dry mucous membranes. NECK: Normal range of motion, supple without lymphadenopathy, JVD, or masses. LUNGS: Wheezes heard throughout b/l lungs. HEART: Regular rate and rhythm, normal S1 and S2 without murmur, rub or gallop. ABDOMEN: Distended abdomen, normoactive bowel sounds. Rectal exam offered to patient, risks and benefits explained, however patient refused. . UPPER EXTREMITIES: 2+ pulses, warm, well-perfused. No cyanosis. No clubbing. No peripheral edema. LOWER EXTREMITIES: 2+ pulses, warm, well-perfused. No calf tenderness. No peripheral edema. NEUROLOGICAL: Cranial nerves II-XII intact. 5/5 strength in upper and lower extremities b/l PSYCHIATRIC: Cooperative. Good eye contact. Appropriate mood and affect. SKIN: bruising on right and left upper extremities. Laboratory Results - last 24 hr 12/09/19 12/09/19 12/09/19 18:57 19:00 19:00 WBC 9.7 RBC 2.88 L Hgb 8.0 L Hct 25.2 L MCV 87.8 MCH 28.0 MCHC 31.8 L RDW 16.4 H Plt Count 316 MPV 9.1 Absolute Neuts (auto) 8.2 H Neutrophils % 84.4 H Neutrophils % (Manual) 78.0 Band Neutrophils % 1.0 Lymphocytes % 5.8 L Lymphocytes % (Manual) 11.0 D Monocytes % 7.4 Monocytes % (Manual) 1 L Eosinophils % 1.1 Eosinophils % (Manual) 0.0 Basophils % 1.3 Basophils % (Manual) 0.0 Myelocytes % (Man) 7 H D Nucleated RBC % 0 Metamyelocytes 2 D Platelet Estimate Adequate PT with INR 30.80 H INR 2.59 H Sodium 140 Potassium 5.6 H Chloride 110 H Carbon Dioxide 20 L Anion Gap 9 BUN 122.8 H* Creatinine 4.4 H Est GFR (CKD-EPI)AfAm 14.57 Est GFR (CKD-EPI)NonAf 12.57 Random Glucose 103 Calcium 8.0 L Total Bilirubin 0.2 AST 14 L ALT 22 Alkaline Phosphatase 177 H Total Protein 6.4 Albumin 2.8 L Imaging Chest X-Ray: No acute chest pathology EKG: NC interval 180, QTc: 515 ASSESSMENT/PLAN: 69 PMH HfrEF CAD s/p CABG (03/17), ischemic cardiomyopathy (EF 30-35%), s/p PPM, 1st degree AV block, CKD stage III, CVA, COPD on home oxygen 4L who presents today with worsening renal function and requirement for regular dialysis. 1) ESRD -Has required emergent dialysis on prior admissions, last dialysis was 12/03/2019 according to . -Was found to have elevated K on labs today -Lokelma 10, Insulin 10, D50 1 am, and Calcium gluconate 1 gram given - Lasix 80 mg given, patient had output <100 ml. -Bicarb 650 mg PO Daily. -Nephrology consulted, appreciate recs -Vascular surgery consulted for permacath placement. Type and Screen, PT/INR, and NPO 2) Anemia possibly 2/2 to UGIB -Hx of UGIB - BUN of 122.8 -Normocytic -FOBT ordered, patient refused rectal exam despite having risks and benefits explained -Protonix 40 mg Daily -GI consulted, appreciate recs -Iron studies, ferritin, vitamin B12 3)Hx of DM II -Insulin sliding scale 4)Hx of Afib, CHF, CABG - Warfarin held - Continue metropolol - INR is therpeautic - Started on Heparin Drip 5) Hx of chronic pain -Continuing home dose of oxycodone 20 mg PRN Q4H -Continue lyrica 50 mg PO BID 6) Hx of COPD -Duonebs PRN - 4L NC F: No IV fluids E: Follow up CMP, Mag, Phos N: NPO Dispo: Admit to Telemetry unit Visit type - Emergency Visit Emergency Visit: Yes ED Registration Date: 12/09/19 Care time: The patient presented to the Emergency Department on the above date and was hospitalized for further evaluation of their emergent condition. - New Patient This patient is new to me today: Yes Date on this admission: 12/09/19 - Critical Care Critical Care patient: No ATTENDING PHYSICIAN STATEMENT I saw and evaluated the patient. I reviewed the resident's note and discussed the case with the resident. I agree with the resident's findings and plan as documented. SUBJECTIVE: OBJECTIVE: ASSESSMENT AND PLAN:
[2019-12-09] MEDS ORDERED: FUROSEMIDE 40 MG/4 ML INJECTABLE VIAL ONE (23:26)
[2019-12-09] MEDS: SODIUM ZIRCONIUM CYCLOSILICATE (LOKELMA) 5 GM PACKET PO SCH (23:40)
[2019-12-09] MEDS ORDERED: INSULIN REGULAR HUMAN 100 UNITS/ML *VIAL IVPUSH ONE (23:42)
[2019-12-09] MEDS ORDERED: DEXTROSE 50%-WATER - 25 GM/50 ML VIAL IVPUSH ONE (23:42)
[2019-12-09] MEDS ORDERED: CALCIUM GLUCONATE 10% - 1,000 MG/10 ML VIAL IVPB ONE (23:43)
--- NOTE | 2019-12-09 23:56 | PN ---
Teaching Attending Note Name of Resident: Gaby Yanez ATTENDING PHYSICIAN STATEMENT I saw and evaluated the patient. I reviewed the resident's note and discussed the case with the resident. I agree with the resident's findings and plan as documented. SUBJECTIVE: 69-year-old male with a history of A. fib,On AC, status post CABG in 02/2019, ischemic cardiomyopathy, CHF with ejection fraction of 29%, CKD, uncontrolled diabetes mellitus type 2, status post pacemaker, BRANT with uremic encephalopathy recently received hemodialysis. Patient is status post kidney biopsy which allegedly showed the left kidney with severely decreased function. Also prior history of melena. Patient was sent in for normal lab tests. He was called in by his PCP. Patient was evaluated by Dr. Cummings is planned for hemodialysis during the day. Patient himself does not endorse any complaints other than decreased appetite. OBJECTIVE: Last Vital Signs Temp Pulse Resp BP Pulse Ox 98.7 F 62 18 138/68 97 12/09/19 16:37 12/09/19 19:35 12/09/19 19:35 12/09/19 19:35 12/09/19 23:12 GENERAL: Well developed, well nourished. Awake and alert. No acute distress. HEENT: Normocephalic, atraumatic. PERRLA, EOMI. No conjunctival pallor. Sclera are non- icteric. Moist mucous membranes. Oropharynx is clear. NECK: Supple. Full ROM. No JVD. Carotid pulses 2+ and symmetric, without bruits. No thyromegaly. No lymphadenopathy. CARDIOVASCULAR: Regular rate and rhythm. No murmurs, rubs, or gallops. Distal pulses are 2+ and symmetric. Chestvertical scar in mid chest. PULMONARY: No evidence of respiratory distress. Lungs clear to auscultation bilaterally. No wheezing, rales or rhonchi. ABDOMINAL: Soft. Non-tender. Non-distended. No rebound or guarding. No organomegaly. Normoactive bowel sounds. MUSCULOSKELETAL Normal range of motion at all joints. No bony deformities or tenderness. No CVA tenderness. EXTREMITIES: No cyanosis. No clubbing. No edema. No calf tenderness. SKIN: Warm and dry. Normal capillary refill. No rashes. No jaundice. PSYCHIATRIC: Cooperative. Good eye contact. Appropriate mood and affect. Abnormal Lab Results 12/09/19 12/09/19 12/09/19 18:57 19:00 19:00 RBC 2.88 L Hgb 8.0 L Hct 25.2 L MCHC 31.8 L RDW 16.4 H Absolute Neuts (auto) 8.2 H Neutrophils % 84.4 H Lymphocytes % 5.8 L Monocytes % (Manual) 1 L Myelocytes % (Man) 7 H D PT with INR 30.80 H INR 2.59 H Potassium 5.6 H Chloride 110 H Carbon Dioxide 20 L BUN 122.8 H* Creatinine 4.4 H Calcium 8.0 L AST 14 L Alkaline Phosphatase 177 H Albumin 2.8 L Imaging studies reviewed EKGatrial paced rhythm Chest x-ray reviewednoted to have cardiomegaly, clip status post CABG ASSESSMENT AND PLAN: 69-year-old male with worsening CKD, hyperkalemia, severe uremia requiring hemodialysis. Prior history of melena, with severe anemia. Should rule out recurrent GI bleed. Suspect that patient's anemia is likely secondary to CKD.Severe hypoalbuminemia. Admit to MedSurg PT/PTT/type and screen Vascular consult for permacath placement Nephrology consult for hemodialysis Treat hyperkalemia with insulin and D50 Furosemide 40 mg IV push and then daily Check phosphate level will need phosphate binders if high Sodium bicarb 3 times daily Calcitriol, ergocalciferol #Anemiashould rule out recurrent GI bleed especially given [facility] few gastric erosions in the body of the stomach, linear 1 cm x 0.4 cm ulcer and duodenal bulb. Protonix 40 mg IV daily Stool for fecal occult blood Iron studies, ferritin vitamin B12 GI consult for repeat EGD #CAD/CHF/hypertension #Atrial fibrillation on AC DC Coumadin in anticipation of HD line placement, will maintain on heparin drip until then Continue with aspirin, Plavix, statin, Imdur, Coreg, hydralazine #Diabetes mellitus NovoLog sliding scale #COPDstable Duo nebs PRN DVT prophylaxisSCDs
[2019-12-10] MEDS ORDERED: ACETAMINOPHEN 325 MG TABLET (FP) PO ONE (00:01)
[2019-12-10] MEDS ORDERED: OXYCODONE HCL 20 MG PO PRN ×2 (00:07→00:08)
[2019-12-10] MEDS ORDERED: HEPARIN NA (PORCINE) 5,000 UNITS/ML 1ML VIAL IVPUSH PRN ×2 (02:05)
[2019-12-10] MEDS ORDERED: ACETAMINOPHEN 325 MG TABLET (FP) ONE (04:39)
[2019-12-10] MEDS ORDERED: CALCIUM GLUCONATE 10% - 1,000 MG/10 ML VIAL ONE (04:39)
[2019-12-10] MEDS ORDERED: DEXTROSE 50%-WATER - 25 GM/50 ML VIAL ONE ×2 (04:39→11:10)
[2019-12-10] MEDS ORDERED: HEPARIN INFUSION - 25,000 UNITS/500 ML INFUS.BAG IVPB ONE (04:40)
[2019-12-10] MEDS: HEPARIN SOD,PORK IN 0.45% NACL 25,000 UNITS/500 ML INFUS.BAG IVPB SCH (05:49)
[2019-12-10 06:36] LABS: BASO % 1.4 % (0-2.0); EOS % 0.4 % (0-4.5); HEMATOCRIT 23.9 % (35.4-49); HEMOGLOBIN 7.6 GM/dL (11.7-16.9); LYMPH % 6.8 % (8-40); MCH 27.9 pg (25.7-33.7); MEAN CELL VOLUME 87.2 fl (80-96); MEAN PLT VOLUME 8.8 fl (7.5-11.1); NEUT % 83.4 % (42.8-82.8); PLATELET COUNT 314 K/MM3 (134-434); RBC 2.74 M/mm3 (4.00-5.60); RDW 16.1 % (11.9-15.9); WHITE BLOOD COUNT 9.3 K/mm3 (4.0-10.0)
[2019-12-10 06:47] LABS: INR 2.95 (0.83-1.09); PROTHROMBIN TIME (PATIENT) 35.2 SEC (9.7-13.0)
[2019-12-10] MEDS: INSULIN SLIDING SCALE (NOVOLOG) 1 VIAL SQ SCH ×4 (07:10→22:35)
--- NOTE | 2019-12-10 07:47 | PN ---
Physical Exam: SUBJECTIVE: Patient seen and examined awake alert denies any pain or sob reports some difficulty urination OBJECTIVE: Vital Signs Period Temp Pulse Resp BP Sys/Chandra Pulse Ox Last 24 Hr 97.2 F-98.7 F 62-72 18-20 102-138/58-68 95-98 GENERAL: awake alert in AND HEAD: NC/AT EYES: EOMI, Conjunctiva clear, sclera anicteric ENT: moist mucous membrane NECK: Supple, no JVD LUNGS: diffuse wheezing HEART: RRR, NSR, normal s1, s2, murmur no M/R/G, Med surgical scr CABG ABDOMEN: Soft, ND, NT, +BS 4 Q, no CVA Tenderness LOWER EXTREMITIES: no edema, +2DP pulse, NEUROLOGICAL: No focal deficit. Normal speech. gait not observed. PSYCHIATRIC: Cooperative. Good eye contact. Appropriate mood and affect. SKIN: Warm, dry, Laboratory Results - last 24 hr 12/09/19 12/09/19 12/09/19 18:57 19:00 19:00 WBC 9.7 RBC 2.88 L Hgb 8.0 L Hct 25.2 L MCV 87.8 MCH 28.0 MCHC 31.8 L RDW 16.4 H Plt Count 316 MPV 9.1 Absolute Neuts (auto) 8.2 H Neutrophils % 84.4 H Neutrophils % (Manual) 78.0 Band Neutrophils % 1.0 Lymphocytes % 5.8 L Lymphocytes % (Manual) 11.0 D Monocytes % 7.4 Monocytes % (Manual) 1 L Eosinophils % 1.1 Eosinophils % (Manual) 0.0 Basophils % 1.3 Basophils % (Manual) 0.0 Myelocytes % (Man) 7 H D Nucleated RBC % 0 Metamyelocytes 2 D Platelet Estimate Adequate PT with INR 30.80 H INR 2.59 H Sodium 140 Potassium 5.6 H Chloride 110 H Carbon Dioxide 20 L Anion Gap 9 BUN 122.8 H* Creatinine 4.4 H Est GFR (CKD-EPI)AfAm 14.57 Est GFR (CKD-EPI)NonAf 12.57 Random Glucose 103 Calcium 8.0 L Iron TIBC Iron Saturation Unsaturated IBC Ferritin Total Bilirubin 0.2 AST 14 L ALT 22 Alkaline Phosphatase 177 H Total Protein 6.4 Albumin 2.8 L Vitamin B12 Blood Type Antibody Screen 12/10/19 12/10/19 12/10/19 06:00 06:00 06:00 WBC 9.3 RBC 2.74 L Hgb 7.6 L Hct 23.9 L MCV 87.2 MCH 27.9 MCHC 32.0 RDW 16.1 H Plt Count 314 MPV 8.8 Absolute Neuts (auto) 7.7 Neutrophils % 83.4 H Neutrophils % (Manual) Band Neutrophils % Lymphocytes % 6.8 L Lymphocytes % (Manual) Monocytes % 8.0 Monocytes % (Manual) Eosinophils % 0.4 Eosinophils % (Manual) Basophils % 1.4 Basophils % (Manual) Myelocytes % (Man) Nucleated RBC % 0 Metamyelocytes Platelet Estimate PT with INR 35.20 H INR 2.95 H Sodium Potassium Chloride Carbon Dioxide Anion Gap BUN Creatinine Est GFR (CKD-EPI)AfAm Est GFR (CKD-EPI)NonAf Random Glucose Calcium Iron TIBC Iron Saturation Unsaturated IBC Ferritin Total Bilirubin AST ALT Alkaline Phosphatase Total Protein Albumin Vitamin B12 Blood Type AB POSITIVE Antibody Screen Negative 12/10/19 06:00 WBC RBC Hgb Hct MCV MCH MCHC RDW Plt Count MPV Absolute Neuts (auto) Neutrophils % Neutrophils % (Manual) Band Neutrophils % Lymphocytes % Lymphocytes % (Manual) Monocytes % Monocytes % (Manual) Eosinophils % Eosinophils % (Manual) Basophils % Basophils % (Manual) Myelocytes % (Man) Nucleated RBC % Metamyelocytes Platelet Estimate PT with INR INR Sodium Potassium Chloride Carbon Dioxide Anion Gap BUN Creatinine Est GFR (CKD-EPI)AfAm Est GFR (CKD-EPI)NonAf Random Glucose Calcium Iron 30 L TIBC 183 L Iron Saturation 16 L Unsaturated IBC 153 L Ferritin 189.2 Total Bilirubin AST ALT Alkaline Phosphatase Total Protein Albumin Vitamin B12 593 Blood Type Antibody Screen Active Medications Generic Name Dose Route Start Last Admin Trade Name Freq PRN Reason Stop Dose Admin Heparin Sodium (Porcine) 1,000 unit 12/10/19 02:05 Heparin - IVPUSH PRN PRN Heparin Heparin Sodium (Porcine) 5,000 unit 12/10/19 02:05 Heparin - IVPUSH PRN PRN Heparin HEPARIN SOD,PORK IN 0.45% NACL 25,000 units in 500 mls @ 20 mls/hr 12/10/19 02 :15 12/10/19 05:49 Heparin-1/2ns 25,000 Units/500 IVPB 1,000 unit/hr TITR RADHA 20 mls/hr Administration Protocol 1,000 UNIT/HR Insulin Aspart 1 vial 12/10/19 07:00 Novolog Vial Sliding Scale - SQ ACHS [facility] Protocol Metoprolol Succinate 25 mg 12/10/19 10:00 Toprol Xl - PO BID RADHA Oxycodone HCl 20 mg 12/10/19 00:30 Roxicodone - PO Q4H PRN PAIN 4-6 Pantoprazole Sodium 40 mg 12/10/19 10:00 Protonix Iv IVPUSH DAILY [facility] Rosuvastatin Calcium 20 mg 12/10/19 22:00 Crestor - PO HS [facility] Sodium Bicarbonate 650 mg 12/10/19 10:00 Sodium Bicarbonate - PO DAILY [facility] Sodium Zirconium Cyclosilicate 10 gm 12/09/19 20:30 12/09/19 23:40 Lokelma PO 10 gm DAILY RADHA Administration Tamsulosin HCl 0.4 mg 12/10/19 08:30 Flomax - PO DAILY@0830 [facility] CBC, BMP 12/10/19 06:00 12/10/19 06:00 ASSESSMENT/PLAN: 69 PMH HfrEF CAD s/p CABG (03/17), ischemic cardiomyopathy (EF 30-35%), s/p PPM, 1st degree AV block, CKD stage III, CVA, COPD on home oxygen 4L who presents today with worsening renal function and requirement for regular dialysis. # ESRD # hyperkalemia , * last dialysis was 12/03/2019 according to . * Lokelma 10, Insulin 10, D50 1 am, and Calcium gluconate 1 gram given * Lasix 80 mg and 40 totalof 120 * Bicarb 650 mg PO Daily. * Nephrology consulted, appreciate recs, for HD tomorrow * Vascular surgery consulted for permacath placement. Type and Screen, PT/INR, and NPO after med night #normocytic normochromic Anemia possibly 2/2 to UGIB * Hx of UGIB * FOBT ordered, pending * Protonix 40 mg Daily * GI consulted, appreciate recs * Iron studies, low iron normal ferritin ,folate and vitamin B12 normal * Monitor H/H daily * hold warfarin for procedure tomorrow can cont heparin #Hx of DM II * ISS * BGM ACHS #Hx of Afib, S CHF, ischemic cardiomypoathy , CABG # HLD cont statin * hold Warfarin * Continue metropolol * INR is therpeautic * Started on Heparin Drip, cont * Avoid NSAIDS # S/P PPM due to [place] I 2nd degree AV block , stable , monitor in tele Hx of chronic pain -Continuing home dose of oxycodone 20 mg PRN Q4H -Continue lyrica 50 mg PO BID # Hx of COPD * Duonebs PRN * 4L NC # H/O CVA hold warfarin for now , ASA held for GI bleed # Acute meatbolic encephalopathy due to uremia due to CKD # FEN F: No IV fluids E: monitor lytes N: NPO after mednight for perm cath placement tomorrow Dispo: tele monitor FOR HD tomorrow and perm cath Visit type - Emergency Visit Emergency Visit: Yes ED Registration Date: 12/09/19 Care time: The patient presented to the Emergency Department on the above date and was hospitalized for further evaluation of their emergent condition. - New Patient This patient is new to me today: Yes Date on this admission: 12/10/19 - Critical Care Critical Care patient: No - Discharge Referral Referred to [facility] Med P.C.: No ATTENDING PHYSICIAN STATEMENT I saw and evaluated the patient. I reviewed the resident's note and discussed the case with the resident. I agree with the resident's findings and plan as documented. SUBJECTIVE: OBJECTIVE: ASSESSMENT AND PLAN:
[2019-12-10 07:55] LABS: ALBUMIN 2.6 g/dl (3.4-5.0); BILIRUBIN,TOTAL 0.3 mg/dL (0.2-1); CALCIUM 8.1 mg/dL (8.5-10.1); CREATININE 4.2 mg/dL (0.55-1.3); PHOSPHOROUS 4.8 mg/dL (2.5-4.9); POTASSIUM 4.7 mmol/L (3.5-5.1); TOT PROT 6.4 g/dl (6.4-8.2)
[2019-12-10 08:16] LABS: BLOOD UREA NITROGEN 122.4 mg/dL (7-18)
[2019-12-10 09:20] LABS: ANISOCYTOSIS 1+; MACROCYTOSIS 0; PLATELET ESTIMATE NORMAL
[2019-12-10] MEDS ORDERED: PANTOPRAZOLE 40 MG TABLET PO SCH (10:00)
[2019-12-10] MEDS ORDERED: PT OWN MED DRAWER 7, Y5N ONE (10:24)
[2019-12-10] MEDS: metoPROLOL SUCCINATE 25 MG TAB.SR.24H (FP) PO SCH ×2 (10:27→22:35)
[2019-12-10] MEDS: TAMSULOSIN HCL 0.4 MG CAP PO SCH (10:27)
[2019-12-10] MEDS: PANTOPRAZOLE SODIUM 40 MG VIAL IVPUSH SCH (10:27)
[2019-12-10] MEDS: SODIUM BICARBONATE 650 MG TABLET PO SCH (10:27)
[2019-12-10] MEDS: SODIUM ZIRCONIUM CYCLOSILICATE (LOKELMA) 5 GM PACKET PO SCH (10:46)
[2019-12-10] MEDS ORDERED: DEXTROSE 50%-WATER - 25 GM/50 ML VIAL IVPUSH ONE (11:30)
[2019-12-10] MEDS ORDERED: MAGNESIUM SULF 50% (8.12 MEQ/2 ML-1 GM VIAL) IVPB ONE ×2 (11:45→14:24)
--- NOTE | 2019-12-10 11:47 | SPA.PREOP ---
- PRE-OP NOTE Dx: CKD, Anemia, Hyperkalemia, Uremia, Fluid overload Planned Procedure: Permacatheter Placement Surgeon: Isiah Carson Last Vital Signs Temp Pulse Resp BP Pulse Ox 98.2 F 69 20 118/57 L 95 12/10/19 10:00 12/10/19 10:00 12/10/19 10:00 12/10/19 10:00 12/10/19 09:00 Lab Results WBC 9.3 K/mm3 (4.0-10.0) 12/10/19 06:00 RBC 2.74 M/mm3 (4.00-5.60) L 12/10/19 06:00 Hgb 7.6 GM/dL (11.7-16.9) L 12/10/19 06:00 Hct 23.9 % (35.4-49) L 12/10/19 06:00 MCV 87.2 fl (80-96) 12/10/19 06:00 MCHC 32.0 g/dl (32.0-35.9) 12/10/19 06:00 RDW 16.1 % (11.9-15.9) H 12/10/19 06:00 Plt Count 314 K/MM3 (134-434) 12/10/19 06:00 Sodium 141 mmol/L (136-145) 12/10/19 06:00 Potassium 4.7 mmol/L (3.5-5.1) 12/10/19 06:00 Chloride 111 mmol/L (98-107) H 12/10/19 06:00 Carbon Dioxide 20 mmol/L (21-32) L 12/10/19 06:00 Anion Gap 10 MMOL/L (8-16) 12/10/19 06:00 BUN 122.4 mg/dL (7-18) H* 12/10/19 06:00 Creatinine 4.2 mg/dL (0.55-1.3) H 12/10/19 06:00 Random Glucose 118 mg/dL (74-106) H 12/10/19 06:00 Calcium 8.1 mg/dL (8.5-10.1) L 12/10/19 06:00 Blood Type AB POSITIVE 12/10/19 06:00 Antibody Screen Negative 12/10/19 06:00 INR 2.95 (0.83-1.09) H 12/10/19 06:00 - ASSESSMENT/PLAN 1. Make NPO after midnight except po meds 2. GI/DVT PPX 3. Medical optimization / clearance 4. Consent to be obtained by surgeon after risks, benefits and alternatives discussed with patient and or Health Care Proxy. Problem List - Problems (1) CKD (chronic kidney disease) Code(s): N18.9 - CHRONIC KIDNEY DISEASE, UNSPECIFIED Qualifiers: Chronic kidney disease stage: stage 3 (moderate) Qualified Code(s): N18.3 - Chronic kidney disease, stage 3 (moderate) (2) Acute on chronic systolic and diastolic heart failure, NYHA class 2 Code(s): I50.43 - ACUTE ON CHRONIC COMBINED SYSTOLIC AND DIASTOLIC HRT FAIL (3) COPD (chronic obstructive pulmonary disease) Code(s): J44.9 - CHRONIC OBSTRUCTIVE PULMONARY DISEASE, UNSPECIFIED (4) Congestive heart failure (CHF) Code(s): I50.9 - HEART FAILURE, UNSPECIFIED Qualifiers: Heart failure type: other Qualified Code(s): I50.9 - Heart failure, unspecified (5) Diabetes mellitus Code(s): E11.9 - TYPE 2 DIABETES MELLITUS WITHOUT COMPLICATIONS Qualifiers: Diabetes mellitus type: type 2 Diabetes mellitus intermediate card tender insulin use: with longterm use Diabetes mellitus complication status: with circulatory complication Diabetes mellitus complication detail: with peripheral angiopathy with gangrene Qualified Code(s): E11.52 - Type 2 diabetes mellitus with diabetic peripheral angiopathy with gangrene (6) Hyperkalemia Code(s): E87.5 - HYPERKALEMIA Visit type - Case Type Case Type: ED Admission - Emergency Emergency Visit: Yes ED Registration Date: 12/09/19 Care time: The patient presented to the Emergency Department on the above date and was hospitalized for further evaluation of their emergent condition. - New patient This patient is new to me today: Yes Date on this admission: 12/10/19
--- NOTE | 2019-12-10 12:18 | PN ---
Progress Note (short form) - Note Progress Note: GI CONSULT DICTATED - F/U FOBT - PPI - HOLD COUMADIN FOR NOW - FULL LIQUID DIET - H/H QD - HOLD OFF ON ANY INVASIVE TESTING UNTIL HE IS OPTIMIZED. - PT WILL BE FOLLOWED BY THE GI SERVICE
--- NOTE | 2019-12-10 12:19 | CON.CARD ---
Cardiology Consult (text) - Consultation Consultation Note: Consultation Note: Chief Complaint: alt mental status, tremor History of Present Illness: 69M h/o dm, ckd (1.5-2), CVA 10/2014, CAD s/p STEMI and multiple pci's, s/p CABG 02/2019, s/p PPM, ischemic CM with systolic chf, COPD, extensive smoking history (quit 12/2016) here with alt mental status, nausea, tremor. Sees me for cardio. Recently admitted for alt mental status, uremic encephalopathy s/p dialysis, also with melena, GI bleed. Was discharged and returned again for BRANT with hyperkalemia, received HD and was discharged home. Did not have workup for GI bleed, was resumed on warfarin prior to last hospital discharge on 12/02. Last HD session was 12/02. At home he was confused again, referred to ER by PCP for abnormal labs and complained of tremor, feels like when he last came and needed HD. - Past Medical History [employer]: Yes: CVA, Peripheral Neuropathy Cardio/Vascular: Yes: CHF, HTN, Hyperlipdemia. No: AFIB Pulmonary: Yes: COPD Gastrointestinal: Yes: Other (Colitis) Renal/: Yes: Renal Inusuff, Other (hyperkalemia) Psych: Yes: Addictions Musculoskeletal: Yes: Other (Lumbar radiculopathy) Endocrine: Yes: Diabetes Mellitus - Past Surgical History Past Surgical History: Yes: Stent, CABG, PPM - Alcohol/Substance Use Hx Alcohol Use: No History of Substance Use: reports: None - Smoking History Smoking history: ex tob - Social History Usual Living Arrangement: With Spouse ADL: Independent History of Recent Travel: No Home Medications - Allergies Allergies/Adverse Reactions: Allergies Allergy/AdvReac Type Severity Reaction Status Date / Time No Known Allergies Allergy Verified 12/09/19 16:39 Home Medications Medication Instructions Recorded Fluticasone Propionate 16 gm NS DAILY 04/15/19 Rosuvastatin [Crestor -] 20 mg PO DAILY 04/15/19 Tamsulosin HCl [Flomax -] 0.4 mg PO DAILY 04/15/19 Metoprolol Succinate [Toprol XL -] 25 mg PO BID #60 tab.sr.24h 04/18/19 Oxycodone HCl 20 mg PO Q4H PRN 11/09/19 Pantoprazole Sodium 40 mg PO DAILY 11/09/19 Insulin Sliding Scale [Novolog See Protocol SQ ACHS #30 pen 12/02/19 Vial Sliding Scale -] Miscellaneous Medical Supply 1 each .ROUTE ASDIR #1 kit 12/02/19 [Glucometer Device] Warfarin Na [Coumadin -] 5 mg PO DAILY@1800 #30 tablet 12/02/19 Warfarin Sodium [Coumadin] 2.5 mg PO ONCE #1 tablet 12/02/19 Family Disease History - Family Disease History Family Disease History: Diabetes: Grandparent, Sister (COPD), CA: Father, Respiratory: Sister, Other: Mother (CVA) Review of Systems - Review of Systems per hpi; no nvd, salas, vision changes, gib, hematuria, dysuria, muscle pain Physical Exam Vital Signs: Vital Signs Period Temp Pulse Resp BP Sys/Chandra Pulse Ox Last 24 Hr 97.2 F-98.7 F 62-72 18-20 102-138/57-68 95-98 nad no jvd rrr s1s2 no mrg ctab aaox3 no le e/c/c abd nt nd pos bs no jaundice diaphoresis pos dp pt no carotid bruits ext wwp, no edema Laboratory Last Values WBC 9.3 K/mm3 (4.0-10.0) 12/10/19 06:00 RBC 2.74 M/mm3 (4.00-5.60) L 12/10/19 06:00 Hgb 7.6 GM/dL (11.7-16.9) L 12/10/19 06:00 Hct 23.9 % (35.4-49) L 12/10/19 06:00 MCV 87.2 fl (80-96) 12/10/19 06:00 MCH 27.9 pg (25.7-33.7) 12/10/19 06:00 MCHC 32.0 g/dl (32.0-35.9) 12/10/19 06:00 RDW 16.1 % (11.9-15.9) H 12/10/19 06:00 Plt Count 314 K/MM3 (134-434) 12/10/19 06:00 MPV 8.8 fl (7.5-11.1) 12/10/19 06:00 Absolute Neuts (auto) 7.7 K/mm3 (1.5-8.0) 12/10/19 06:00 Neutrophils % 83.4 % (42.8-82.8) H 12/10/19 06:00 Neutrophils % (Manual) 77.8 % (42.8-82.8) 12/10/19 06:00 Band Neutrophils % 0.0 % 12/10/19 06:00 Lymphocytes % 6.8 % (8-40) L 12/10/19 06:00 Lymphocytes % (Manual) 9.1 % (8-40) 12/10/19 06:00 Monocytes % 8.0 % (3.8-10.2) 12/10/19 06:00 Monocytes % (Manual) 7 % (3.8-10.2) D 12/10/19 06:00 Eosinophils % 0.4 % (0-4.5) 12/10/19 06:00 Eosinophils % (Manual) 2.0 % (0-4.5) D 12/10/19 06:00 Basophils % 1.4 % (0-2.0) 12/10/19 06:00 Basophils % (Manual) 0.0 % (0-2.0) 12/10/19 06:00 Myelocytes % (Man) 3 % (0-2) H D 12/10/19 06:00 Promyelocytes % (Man) 1 % (0-2) D 12/10/19 06:00 Blast Cells % (Manual) 0 % (0-0) 12/10/19 06:00 Nucleated RBC % 0 % (0-0) 12/10/19 06:00 Metamyelocytes 0 % (0-2) D 12/10/19 06:00 Hypochromia 0 12/10/19 06:00 Platelet Estimate Normal 12/10/19 06:00 Polychromasia 0 12/10/19 06:00 Poikilocytosis 0 12/10/19 06:00 Anisocytosis 1+ 12/10/19 06:00 Microcytosis 1+ 12/10/19 06:00 Macrocytosis 0 12/10/19 06:00 PT with INR 35.20 SEC (9.7-13.0) H 12/10/19 06:00 INR 2.95 (0.83-1.09) H 12/10/19 06:00 Sodium 141 mmol/L (136-145) 12/10/19 06:00 Potassium 4.7 mmol/L (3.5-5.1) 12/10/19 06:00 Chloride 111 mmol/L (98-107) H 12/10/19 06:00 Carbon Dioxide 20 mmol/L (21-32) L 12/10/19 06:00 Anion Gap 10 MMOL/L (8-16) 12/10/19 06:00 BUN 122.4 mg/dL (7-18) H* 12/10/19 06:00 Creatinine 4.2 mg/dL (0.55-1.3) H 12/10/19 06:00 Est GFR (CKD-EPI)AfAm 15.41 12/10/19 06:00 Est GFR (CKD-EPI)NonAf 13.30 12/10/19 06:00 POC Glucometer 48 UNITS (80-120) 12/10/19 11:07 Random Glucose 118 mg/dL (74-106) H 12/10/19 06:00 Calcium 8.1 mg/dL (8.5-10.1) L 12/10/19 06:00 Phosphorus 4.8 mg/dL (2.5-4.9) 12/10/19 06:00 Magnesium 1.0 mg/dL (1.8-2.4) L 12/10/19 06:00 Iron 28 ug/dL (50-175) L 12/10/19 06:00 TIBC 183 ug/dL (250-450) L 12/10/19 06:00 Iron Saturation 16 % (17.5-39) L 12/10/19 06:00 Unsaturated IBC 153 ug/dL (200-275) L 12/10/19 06:00 Ferritin 189.2 ng/ml (8-388) 12/10/19 06:00 Total Bilirubin 0.3 mg/dL (0.2-1) 12/10/19 06:00 AST 13 U/L (15-37) L 12/10/19 06:00 ALT 19 U/L (13-61) 12/10/19 06:00 Alkaline Phosphatase 170 U/L (45-117) H 12/10/19 06:00 Total Protein 6.4 g/dl (6.4-8.2) 12/10/19 06:00 Albumin 2.6 g/dl (3.4-5.0) L 12/10/19 06:00 Vitamin B12 593 pg/ml (193-986) 12/10/19 06:00 Serum Folate 43 ng/mL (3.1-17.5) H 12/10/19 06:00 Blood Type AB POSITIVE 12/10/19 06:00 Antibody Screen Negative 12/10/19 06:00 ecg: a sense, V paced, PVC LHC 05/15: 70-80% mRCA (ISR), 70-80% RPDA (ISR); 70-80% mLAD; 80-90% pLCX (small vessel); 90-95% OM2 (large vessel); 80-90% prox Ramus (large vessel) ...nonobstructive dz of note [id number]% ostial RCA, 50-60% eccentric lesion OM1 (large vessel); EDP 30-->25 post-nitro EF 38% (diffuse WMAs) Syntax score 20 Echo 10/29/18: mod LVE, mild global LV hypo (45-50%). RV tds. mild TR. no vegetations noted Echo 05/15: mod to sev decr LVEF; severe hypokinesis of all lindsey except basal segments. nl RV. mild MR/TR. no peric eff. Echo 01/2017: mild global HK, lvef 45-50, nl rv, nl rvsp, mild lae, mild tr Echo 11/11/2019: Severe LV dysfunction, EF < 35%. Mild PHTN. AVS Lexiscan MPI 11/12/2019: Large fixed anterior wall, apical, distal septal and distal inferior wall scar. No ischemia, EF 31% CXR: no acute process tele: , [employer] a/p: 69M h/o dm, ckd (1.5-2), CVA 10/2014, CAD s/p STEMI and multiple pci's, s/p CABG 02/2019, s/p PPM, ischemic CM with systolic chf, COPD, extensive smoking history (quit 12/2016) here with tremor, alt mental status BRANT, hyperkalemia - evaluated by renal here, plan for permacath today and HD - received lasix 80 mg x 1 in ER - volume management per renal, appears euvolemic now CAD: -2004 s/p PCI ([facility]) to 100% occl RPDA ([facility]) with patent prior RCA stents at that time, EF 50% then; -2011 s/p anterior STEMI 2011 with [place] LIBBY x 2 to mid LAD then ([facility]); residual 80% prox D1 (large vessel), 95% mD1; 70%mRCA (pre and post prior stents), 70% dCFX; (also 40% RPDA; 60% pCFX; 40% mCFX;) EF then 37% with AK of apex/AL lindsey and AK of IW; -2016 s/p NSTEMI in setting of sepsis/PNA-->[facility] with 70-80% mRCA (ISR), 70-80% RPDA (ISR); 70-80% mLAD; 80-90% pLCX (small vessel); 90-95% OM2 (large vessel); 80-90% prox Ramus (large vessel), 30-50% ostial RCA, 50-60% eccentric lesion OM1 (large vessel); - NSTEMI 02/2019, now s/p CABG at [facility] - cont statin, bb - aspirin stopped for hx GI bleed alt mental status, toxic metabolic encephalopathy - likely 2/2 uremia - improving anemia - GI consulted, holding warfarin for now - monitor H/H chronic syst CHF, ischemic cardiomyopathy - cont metoprolol - no WENDY/ARB for BRANT, hyperkalemia - received lasix as above, plan for HD - monitor daily weight, lytes, Cr HTN: - cont home meds Atrial fibrillation -[id number] score is high (including prior CVAs) and AC is warranted. however , recent GIB here w/drop in H/H and guaiac + stool that was not fully investigated with endoscopic evaluation ([facility] admit) as patient deemed high risk for scope and H/H stabilized then. -08/17 EGD from [facility] reviewed showing erosions felt to be bleeding culprit, rec' d avoidance of NSAIDs, PPI. ? h. pylori results, to be f/u'd and treated if indicated. -at last admission, GI disc'd options with pt and and they are presently deferring high-risk endoscopy, preferring instead to try re-challenge with AC with close monitoring. after discussions with patient, he wished to forego scopes and resume AC with warfarin and home draws using apex -ASA dc'ed to avoid incr bleeding risk - warfarin held here for planned permacath placement - cont heparin gtt for now s/p PPM, hx mobitz I 2nd degree AVB - stable function on EKG, tele - outpatient follow up HLD - cont statin h/o CVA: -dx'd lacunar infarct 02/10 clinically then (slurred speech) -? acute CVA/TIA 11/13 - holding warfarin, as above
[2019-12-10] MEDS ORDERED: DEXTROSE 5%-LACTATED RINGERS 1,000 ML IV SCH (12:45)
--- NOTE | 2019-12-10 12:57 | PN ---
Teaching Attending Note Name of Resident: Dwaine Mason ATTENDING PHYSICIAN STATEMENT I saw and evaluated the patient. I reviewed the resident's note and discussed the case with the resident. I agree with the resident's findings and plan as documented. SUBJECTIVE: Patient has no complaints. OBJECTIVE: Vital Signs Period Temp Pulse Resp BP Sys/Chandra Pulse Ox Last 24 Hr 97.2 F-98.7 F 62-72 18-20 102-138/57-68 95-98 HEART: S1S2, RRR LUNGS: Clear ABDOMEN: Soft, non-tender, non-distended, normal BS EXTREMITIES: No edema Laboratory Results - last 24 hr 12/09/19 12/09/19 12/09/19 18:57 19:00 19:00 WBC 9.7 RBC 2.88 L Hgb 8.0 L Hct 25.2 L MCV 87.8 MCH 28.0 MCHC 31.8 L RDW 16.4 H Plt Count 316 MPV 9.1 Absolute Neuts (auto) 8.2 H Neutrophils % 84.4 H Neutrophils % (Manual) 78.0 Band Neutrophils % 1.0 Lymphocytes % 5.8 L Lymphocytes % (Manual) 11.0 D Monocytes % 7.4 Monocytes % (Manual) 1 L Eosinophils % 1.1 Eosinophils % (Manual) 0.0 Basophils % 1.3 Basophils % (Manual) 0.0 Myelocytes % (Man) 7 H D Promyelocytes % (Man) Blast Cells % (Manual) Nucleated RBC % 0 Metamyelocytes 2 D Hypochromia Platelet Estimate Adequate Polychromasia Poikilocytosis Anisocytosis Microcytosis Macrocytosis PT with INR 30.80 H INR 2.59 H Sodium 140 Potassium 5.6 H Chloride 110 H Carbon Dioxide 20 L Anion Gap 9 BUN 122.8 H* Creatinine 4.4 H Est GFR (CKD-EPI)AfAm 14.57 Est GFR (CKD-EPI)NonAf 12.57 POC Glucometer Random Glucose 103 Calcium 8.0 L Phosphorus Magnesium Iron TIBC Iron Saturation Unsaturated IBC Ferritin Total Bilirubin 0.2 AST 14 L ALT 22 Alkaline Phosphatase 177 H Total Protein 6.4 Albumin 2.8 L Vitamin B12 Serum Folate Blood Type Antibody Screen 12/10/19 12/10/19 12/10/19 06:00 06:00 06:00 WBC 9.3 RBC 2.74 L Hgb 7.6 L Hct 23.9 L MCV 87.2 MCH 27.9 MCHC 32.0 RDW 16.1 H Plt Count 314 MPV 8.8 Absolute Neuts (auto) 7.7 Neutrophils % 83.4 H Neutrophils % (Manual) 77.8 Band Neutrophils % 0.0 Lymphocytes % 6.8 L Lymphocytes % (Manual) 9.1 Monocytes % 8.0 Monocytes % (Manual) 7 D Eosinophils % 0.4 Eosinophils % (Manual) 2.0 D Basophils % 1.4 Basophils % (Manual) 0.0 Myelocytes % (Man) 3 H D Promyelocytes % (Man) 1 D Blast Cells % (Manual) 0 Nucleated RBC % 0 Metamyelocytes 0 D Hypochromia 0 Platelet Estimate Normal Polychromasia 0 Poikilocytosis 0 Anisocytosis 1+ Microcytosis 1+ Macrocytosis 0 PT with INR 35.20 H INR 2.95 H Sodium 141 Potassium 4.7 Chloride 111 H Carbon Dioxide 20 L Anion Gap 10 BUN 122.4 H* Creatinine 4.2 H Est GFR (CKD-EPI)AfAm 15.41 Est GFR (CKD-EPI)NonAf 13.30 POC Glucometer Random Glucose 118 H Calcium 8.1 L Phosphorus 4.8 Magnesium 1.0 L Iron 28 L TIBC Iron Saturation Unsaturated IBC Ferritin Total Bilirubin 0.3 AST 13 L ALT 19 Alkaline Phosphatase 170 H Total Protein 6.4 Albumin 2.6 L Vitamin B12 Serum Folate 43 H Blood Type Antibody Screen 12/10/19 12/10/19 12/10/19 06:00 06:00 11:06 WBC RBC Hgb Hct MCV MCH MCHC RDW Plt Count MPV Absolute Neuts (auto) Neutrophils % Neutrophils % (Manual) Band Neutrophils % Lymphocytes % Lymphocytes % (Manual) Monocytes % Monocytes % (Manual) Eosinophils % Eosinophils % (Manual) Basophils % Basophils % (Manual) Myelocytes % (Man) Promyelocytes % (Man) Blast Cells % (Manual) Nucleated RBC % Metamyelocytes Hypochromia Platelet Estimate Polychromasia Poikilocytosis Anisocytosis Microcytosis Macrocytosis PT with INR INR Sodium Potassium Chloride Carbon Dioxide Anion Gap BUN Creatinine Est GFR (CKD-EPI)AfAm Est GFR (CKD-EPI)NonAf POC Glucometer 43 Random Glucose Calcium Phosphorus Magnesium Iron 30 L TIBC 183 L Iron Saturation 16 L Unsaturated IBC 153 L Ferritin 189.2 Total Bilirubin AST ALT Alkaline Phosphatase Total Protein Albumin Vitamin B12 593 Serum Folate Blood Type AB POSITIVE Antibody Screen Negative 12/10/19 12/10/19 11:07 12:31 WBC RBC Hgb Hct MCV MCH MCHC RDW Plt Count MPV Absolute Neuts (auto) Neutrophils % Neutrophils % (Manual) Band Neutrophils % Lymphocytes % Lymphocytes % (Manual) Monocytes % Monocytes % (Manual) Eosinophils % Eosinophils % (Manual) Basophils % Basophils % (Manual) Myelocytes % (Man) Promyelocytes % (Man) Blast Cells % (Manual) Nucleated RBC % Metamyelocytes Hypochromia Platelet Estimate Polychromasia Poikilocytosis Anisocytosis Microcytosis Macrocytosis PT with INR INR Sodium Potassium Chloride Carbon Dioxide Anion Gap BUN Creatinine Est GFR (CKD-EPI)AfAm Est GFR (CKD-EPI)NonAf POC Glucometer 48 83 Random Glucose Calcium Phosphorus Magnesium Iron TIBC Iron Saturation Unsaturated IBC Ferritin Total Bilirubin AST ALT Alkaline Phosphatase Total Protein Albumin Vitamin B12 Serum Folate Blood Type Antibody Screen Current Medications Generic Name Dose Route Start Last Admin Trade Name Freq PRN Reason Stop Dose Admin Heparin Sodium (Porcine) 1,000 unit 12/10/19 02:05 Heparin - IVPUSH PRN PRN Heparin Heparin Sodium (Porcine) 5,000 unit 12/10/19 02:05 Heparin - IVPUSH PRN PRN Heparin HEPARIN SOD,PORK IN 0.45% NACL 25,000 units in 500 mls @ 20 mls/hr 12/10/19 02 :15 12/10/19 05:49 Heparin-1/2ns 25,000 Units/500 IVPB 1,000 unit/hr TITR RADHA 20 mls/hr Administration Protocol 1,000 UNIT/HR Dextrose/Lactated Ringer's 1,000 mls @ 42 mls/hr 12/10/19 12:45 D5-Lr - IV ASDIR RADHA Insulin Aspart 1 vial 12/10/19 07:00 12/10/19 11:26 Novolog Vial Sliding Scale - SQ Not Given ACHS [facility] Protocol Metoprolol Succinate 25 mg 12/10/19 10:00 12/10/19 10:27 Toprol Xl - PO 25 mg BID RADHA Administration Oxycodone HCl 20 mg 12/10/19 00:30 Roxicodone - PO Q4H PRN PAIN 4-6 Pantoprazole Sodium 40 mg 12/10/19 10:00 12/10/19 10:27 Protonix Iv IVPUSH 40 mg DAILY RADHA Administration Rosuvastatin Calcium 20 mg 12/10/19 22:00 Crestor - PO HS RADHA Sodium Bicarbonate 650 mg 12/10/19 10:00 12/10/19 10:27 Sodium Bicarbonate - PO 650 mg DAILY RADHA Administration Sodium Zirconium Cyclosilicate 10 gm 12/09/19 20:30 12/10/19 10:46 Lokelma PO Not Given DAILY RADHA Tamsulosin HCl 0.4 mg 12/10/19 08:30 12/10/19 10:27 Flomax - PO 0.4 mg DAILY@0830 RADHA Administration ASSESSMENT AND PLAN: This is a 69 year old man with a history of ischemic CM, CAD, CABG, HTN, hyperlipidemia, a fib, stage 4 CKD, chronic hypoxic respiratory failure, COPD, type 2 DM, CVA who presented to the ED because labs showed worsening renal function. 1. Stage 4 CKD with hyperkalemia - Plan for permacath placement for HD - Given Lokelma, regular insulin, calcium gluconate, Lasix with improvement in hyperkalemia - Continue sodium bicarb 2. Anemia secondary to CKD - BUN elevated likely secondary to uremia - Check stool occult blood to eval for upper GI bleed 3. Type 2 DM - Continue Novolog sliding scale 4. Atrial fib - Continue Toprol XL - Coumadin held for procedure - Continue heparin IV drip 5. Chronic hypoxic respiratory failure secondary to COPD - Oxygen to maintain saturation >90% 6. Peptic ulcer disease - Continue Protonix 7. Ischemic cardiomyopathy with chronic systolic heart failure 8. CAD, history of CABG - Continue Toprol XL, Crestor 9. HTN - Continue Toprol XL 10. Hyperlipidemia - Continue Crestor 11. 2nd degree AV block, history of pacemaker 12. History of CVA 13. Valvular heart disease 14. Chronic pain - Continue oxycodone as needed
--- NOTE | 2019-12-10 13:03 | EKG ---
Test Reason : Blood Pressure : / mmHG Vent. Rate : 073 BPM Atrial Rate : 073 BPM P-R Int : 180 ms QRS Dur : 180 ms QT Int : 468 ms P-R-T Axes : 031 -86 090 degrees QTc Int : 515 ms Atrial-sensed ventricular-paced rhythm WITH OCCASIONAL PREMATURE VENTRICULAR COMPLEXES ABNORMAL ECG WHEN COMPARED WITH ECG OF 21-NOV-2019 16:44, PREMATURE VENTRICULAR COMPLEXES ARE NOW PRESENT VENT. RATE HAS INCREASED BY 8 BPM Confirmed by Ronaldo Mejia MD ([id number]) on 12/10/2019 1:03:04 PM Referred By: Confirmed By:Ronaldo Mejia MD
--- NOTE | 2019-12-10 13:33 | CONS ---
GASTROINTESTINAL CONSULTATION DATE OF CONSULTATION: DATE OF DICTATION: 12/10/2019 HISTORY OF PRESENT ILLNESS: Patient is a 69-year-old, man with a history of CABG, heart failure, ischemic cardiomyopathy with an ejection fraction of 30% to 35%, pacemaker, CKD stage 3, CVA, COPD on home O2, who presents after seeing his PCP with complaint of abnormal BUN over creatinine on labs. As per the patient, he is an extremely poor historian, but states he has been having shakes and tremors over the past couple of days. He denies any abdominal pain, nausea, vomiting, melena, hematochezia or hematemesis. He states he had a colonoscopy over 10 years ago; does not recall the results. He has never had an upper endoscopy in the past. He was admitted with hyperkalemia and fluid overload. PAST MEDICAL AND SURGICAL HISTORY: As listed in the HPI. SOCIAL HISTORY: He quit smoking 3 years ago. Does not drink or use drugs. FAMILY HISTORY: No history of GI or gynecological malignancy. ALLERGIES: No known drug allergies. HOME MEDICATIONS: Include fluticasone, Crestor, Flomax, Toprol, oxycodone, pantoprazole, insulin, and warfarin. REVIEW OF SYSTEMS: As per the HPI and limited secondary to his underlying neurological process. PHYSICAL EXAMINATION: Vital Signs: Temperature 98, pulse 59, respiratory rate 12, blood pressure 118/57, O2 saturation 95% on room air. General: In no acute distress. HEENT: Anicteric sclera. Cardiovascular: S1, S2. Regular rate and rhythm. Lungs: Bilaterally clear to auscultation. Abdomen: Soft. Nontender. Extremities: No edema. Neurological: Awake, alert, and oriented to person, place, and time. Tremor noted. LABORATORIES: White blood cell count 9.3, hemoglobin and hematocrit 7.6 over 23, MCV 87, yesterday hemoglobin was 8, platelet count 314. INR 2.95. Sodium 141, potassium 4.7, BUN over creatinine 122 over 4.2, glucose 118, iron 30, total bilirubin 0.3, AST 13, ALT 19, alkaline phosphatase 170. IMAGING: Chest x-ray on admission revealed enlarged heart; pacemaker; the lungs are clear; no acute pathology. IMPRESSION: Normocytic anemia. Most likely secondary to underlying chronic disease and kidney disease. There is currently no sign of an overt GI bleed. RECOMMENDATIONS: Stool for occult blood x3. Monitor hemoglobin and hematocrit daily while hospitalized. Avoid NSAIDs and hold Coumadin for now, considering it is almost 3 at this time. Start him on Protonix 40 mg IV daily. He can be advanced to a full liquid diet as tolerated. Nephrology followup for electrolyte disturbance, as well as volume status. For now, will hold off on any invasive procedures and follow up his fecal occult blood testing. If there is no sign of any further bleeding, would be best to plan for an outpatient endoscopic evaluation. The patient will be followed by the GI service. DO FRANCISCO JAVIER MERAZ/[id number]
[2019-12-10] MEDS ORDERED: MAGNESIUM OXIDE 400 MG TABLET (FP) PO ONE (14:24)
[2019-12-10] MEDS ORDERED: FUROSEMIDE 40 MG/4 ML INJECTABLE VIAL IVPUSH ONE (14:27)
--- NOTE | 2019-12-10 14:27 | PN ---
Progress Note, Physician History of Present Illness: Pt seen and examined at bedside. He is awake and alert. He denies shortness of breath. - Current Medication List Current Medications: Active Medications Heparin Sodium (Porcine) (Heparin -) 1,000 unit IVPUSH PRN PRN PRN Reason: Heparin Heparin Sodium (Porcine) (Heparin -) 5,000 unit IVPUSH PRN PRN PRN Reason: Heparin HEPARIN SOD,PORK IN 0.45% NACL (Heparin-1/2ns 25,000 Units/500) 25,000 units in 500 mls @ 20 mls/hr IVPB TITR [facility]; Protocol Last Admin: 12/10/19 05:49 Dose: 1,000 unit/hr, 20 mls/hr Dextrose/Lactated Ringer's (D5-Lr -) 1,000 mls @ 42 mls/hr IV ASDIR [facility] Insulin Aspart (Novolog Vial Sliding Scale -) 1 vial SQ ACHS [facility]; Protocol Last Admin: 12/10/19 11:26 Dose: Not Given Magnesium Oxide (Mag-Ox -) 800 mg PO ONCE ONE Stop: 12/10/19 14:25 Magnesium Sulfate (Magnesium Sulfate) 1 gm IVPB ONCE ONE Stop: 12/10/19 14:25 Metoprolol Succinate (Toprol Xl -) 25 mg PO BID [facility] Last Admin: 12/10/19 10:27 Dose: 25 mg Oxycodone HCl (Roxicodone -) 20 mg PO Q4H PRN PRN Reason: PAIN 4-6 Pantoprazole Sodium (Protonix Iv) 40 mg IVPUSH DAILY [facility] Last Admin: 12/10/19 10:27 Dose: 40 mg Rosuvastatin Calcium (Crestor -) 20 mg PO HS [facility] Sodium Bicarbonate (Sodium Bicarbonate -) 650 mg PO DAILY [facility] Last Admin: 12/10/19 10:27 Dose: 650 mg Tamsulosin HCl (Flomax -) 0.4 mg PO DAILY@0830 [facility] Last Admin: 12/10/19 10:27 Dose: 0.4 mg - Objective Vital Signs: Vital Signs Temperature 98.2 F 12/10/19 10:00 Pulse Rate 69 12/10/19 10:00 Respiratory Rate 20 12/10/19 10:00 Blood Pressure 118/57 L 12/10/19 10:00 O2 Sat by Pulse Oximetry (%) 95 12/10/19 09:00 Constitutional: Yes: Calm Eyes: Yes: Conjunctiva Clear HENT: Yes: Atraumatic Neck: Yes: Supple Cardiovascular: Yes: S1, S2 Respiratory: Yes: CTA Bilaterally Gastrointestinal: Yes: Soft Genitourinary: Yes: WNL Musculoskeletal: Yes: WNL Edema: Yes Edema: LLE: 1+, RLE: 1+ Neurological: Yes: Oriented Psychiatric: Yes: Oriented Labs: CBC, BMP 12/10/19 06:00 12/10/19 06:00 INR, PTT INR 2.95 (0.83-1.09) H 12/10/19 06:00 Problem List - Problems (1) BRANT (acute kidney injury) Code(s): N17.9 - ACUTE KIDNEY FAILURE, UNSPECIFIED Assessment/Plan Current Medications Generic Name Dose Route Start Last Admin Trade Name Freq PRN Reason Stop Dose Admin Heparin Sodium (Porcine) 1,000 unit 12/10/19 02:05 Heparin - IVPUSH PRN PRN Heparin Heparin Sodium (Porcine) 5,000 unit 12/10/19 02:05 Heparin - IVPUSH PRN PRN Heparin HEPARIN SOD,PORK IN 0.45% NACL 25,000 units in 500 mls @ 20 mls/hr 12/10/19 02 :15 12/10/19 05:49 Heparin-1/2ns 25,000 Units/500 IVPB 1,000 unit/hr TITR RADHA 20 mls/hr Administration Protocol 1,000 UNIT/HR Dextrose/Lactated Ringer's 1,000 mls @ 42 mls/hr 12/10/19 12:45 D5-Lr - IV ASDIR [facility] Insulin Aspart 1 vial 12/10/19 07:00 12/10/19 11:26 Novolog Vial Sliding Scale - SQ Not Given ACHS [facility] Protocol Magnesium Oxide 800 mg 12/10/19 14:24 Mag-Ox - PO 12/10/19 14:25 ONCE ONE Magnesium Sulfate 1 gm 12/10/19 14:24 Magnesium Sulfate IVPB 12/10/19 14:25 ONCE ONE Metoprolol Succinate 25 mg 12/10/19 10:00 12/10/19 10:27 Toprol Xl - PO 25 mg BID RADHA Administration Oxycodone HCl 20 mg 12/10/19 00:30 Roxicodone - PO Q4H PRN PAIN 4-6 Pantoprazole Sodium 40 mg 12/10/19 10:00 12/10/19 10:27 Protonix Iv IVPUSH 40 mg DAILY RADHA Administration Rosuvastatin Calcium 20 mg 12/10/19 22:00 Crestor - PO HS RADHA Sodium Bicarbonate 650 mg 12/10/19 10:00 12/10/19 10:27 Sodium Bicarbonate - PO 650 mg DAILY RADHA Administration Tamsulosin HCl 0.4 mg 12/10/19 08:30 12/10/19 10:27 Flomax - PO 0.4 mg DAILY@0830 RADHA Administration Impression 1. CKD 2. hyperkalemia 3. copd 4. chf 5. uremia 6. fluid overload 7. cva 8. anemia 9. BRANT Plan - replace mag - pt for permacath tomorrow - likely hd tomorrow - will need placement in HD - do not restart hydralazine - d/c fluids and start renal diet
[2019-12-10] MEDS: oxyCODONE HCL 5 MG TABLET PO PRN ×2 (18:27→22:35)
[2019-12-10] MEDS ORDERED: INSULIN (NOVOLOG) ASPART 100 UNITS/ML 10ML VIAL ONE (20:46)
[2019-12-10] MEDS ORDERED: ROSUVASTATIN CA 20 MG TABLET (FP) PO SCH (22:00)
[2019-12-11] MEDS: oxyCODONE HCL 5 MG TABLET PO PRN ×4 (04:39→21:42)
[2019-12-11] MEDS: HEPARIN SOD,PORK IN 0.45% NACL 25,000 UNITS/500 ML INFUS.BAG IVPB SCH (06:30)
[2019-12-11] MEDS: INSULIN SLIDING SCALE (NOVOLOG) 1 VIAL SQ SCH ×4 (06:34→22:04)
[2019-12-11 07:14] LABS: BASO % 1.3 % (0-2.0); EOS % 0.7 % (0-4.5); HEMATOCRIT 24.2 % (35.4-49); HEMOGLOBIN 7.7 GM/dL (11.7-16.9); LYMPH % 6.6 % (8-40); MCH 27.5 pg (25.7-33.7); MCHC 31.7 g/dl (32.0-35.9); MEAN CELL VOLUME 86.9 fl (80-96); MEAN PLT VOLUME 8.8 fl (7.5-11.1); MONO % 7.3 % (3.8-10.2); NEUT % 84.1 % (42.8-82.8); PLATELET COUNT 285 K/MM3 (134-434); RBC 2.79 M/mm3 (4.00-5.60); RDW 15.9 % (11.9-15.9); WHITE BLOOD COUNT 7.3 K/mm3 (4.0-10.0)
[2019-12-11 08:07] LABS: ALBUMIN 2.6 g/dl (3.4-5.0); BILIRUBIN,TOTAL 0.2 mg/dL (0.2-1); CALCIUM 8.2 mg/dL (8.5-10.1); CREATININE 3.7 mg/dL (0.55-1.3); MAGNESIUM 1.9 mg/dL (1.8-2.4); POTASSIUM 5.5 mmol/L (3.5-5.1)
[2019-12-11 08:27] LABS: BLOOD UREA NITROGEN 123.5 mg/dL (7-18)
[2019-12-11] MEDS: SODIUM BICARBONATE 650 MG TABLET PO SCH ×2 (08:49→09:31)
[2019-12-11] MEDS: metoPROLOL SUCCINATE 25 MG TAB.SR.24H (FP) PO SCH ×3 (08:50→21:47)
[2019-12-11] MEDS ORDERED: SODIUM BICARBONATE 8.4% 50 MEQ/50 ML DISP.SYRIN IVPUSH ONE ×2 (09:21→16:47)
[2019-12-11] MEDS: PANTOPRAZOLE SODIUM 40 MG VIAL IVPUSH SCH (09:31)
[2019-12-11] MEDS: TAMSULOSIN HCL 0.4 MG CAP PO SCH (09:31)
[2019-12-11 09:33] LABS: ANISOCYTOSIS 0; MACROCYTOSIS 0; PLATELET ESTIMATE NORMAL
--- NOTE | 2019-12-11 10:14 | PN ---
Physical Exam: SUBJECTIVE: Patient seen and examined at bed side , no acute events over night denies any fever, chills, N/V/D/C, has been NPO since med night for perm cath placement today and for HD today OBJECTIVE: Vital Signs Period Temp Pulse Resp BP Sys/Chandra Pulse Ox Last 24 Hr 97.4 F-98 F 60-93 20-20 111-139/58-67 99-100 GENERAL: awake alert in AND HEAD: NC/AT EYES: EOMI, Conjunctiva clear, sclera anicteric ENT: moist mucous membrane NECK: Supple, no JVD LUNGS: diffuse wheezing HEART: RRR, NSR, normal s1, s2, murmur no M/R/G, Med surgical scr CABG ABDOMEN: Soft, ND, NT, +BS 4 Q, no CVA Tenderness LOWER EXTREMITIES: no edema, +2DP pulse, NEUROLOGICAL: No focal deficit. Normal speech. gait not observed. PSYCHIATRIC: Cooperative. Good eye contact. Appropriate mood and affect. SKIN: Warm, dry, Laboratory Results - last 24 hr 12/10/19 12/10/19 12/10/19 11:06 11:07 12:30 WBC RBC Hgb Hct MCV MCH MCHC RDW Plt Count MPV Absolute Neuts (auto) Neutrophils % Neutrophils % (Manual) Band Neutrophils % Lymphocytes % Lymphocytes % (Manual) Monocytes % Monocytes % (Manual) Eosinophils % Eosinophils % (Manual) Basophils % Basophils % (Manual) Myelocytes % (Man) Promyelocytes % (Man) Blast Cells % (Manual) Nucleated RBC % Metamyelocytes Hypochromia Platelet Estimate Polychromasia Poikilocytosis Anisocytosis Microcytosis Macrocytosis PTT (Actin FS) 54.9 H Sodium Potassium Chloride Carbon Dioxide Anion Gap BUN Creatinine Est GFR (CKD-EPI)AfAm Est GFR (CKD-EPI)NonAf POC Glucometer 43 48 Random Glucose Calcium Magnesium Total Bilirubin AST ALT Alkaline Phosphatase Total Protein Albumin 12/10/19 12/10/19 12/10/19 12:31 16:38 22:34 WBC RBC Hgb Hct MCV MCH MCHC RDW Plt Count MPV Absolute Neuts (auto) Neutrophils % Neutrophils % (Manual) Band Neutrophils % Lymphocytes % Lymphocytes % (Manual) Monocytes % Monocytes % (Manual) Eosinophils % Eosinophils % (Manual) Basophils % Basophils % (Manual) Myelocytes % (Man) Promyelocytes % (Man) Blast Cells % (Manual) Nucleated RBC % Metamyelocytes Hypochromia Platelet Estimate Polychromasia Poikilocytosis Anisocytosis Microcytosis Macrocytosis PTT (Actin FS) Sodium Potassium Chloride Carbon Dioxide Anion Gap BUN Creatinine Est GFR (CKD-EPI)AfAm Est GFR (CKD-EPI)NonAf POC Glucometer 83 99 98 Random Glucose Calcium Magnesium Total Bilirubin AST ALT Alkaline Phosphatase Total Protein Albumin 12/11/19 12/11/19 12/11/19 05:30 05:30 05:30 WBC 7.3 RBC 2.79 L Hgb 7.7 L Hct 24.2 L MCV 86.9 MCH 27.5 MCHC 31.7 L RDW 15.9 Plt Count 285 MPV 8.8 Absolute Neuts (auto) 6.2 Neutrophils % 84.1 H Neutrophils % (Manual) 83.6 H Band Neutrophils % 0.0 Lymphocytes % 6.6 L Lymphocytes % (Manual) 5.8 L D Monocytes % 7.3 Monocytes % (Manual) 6 Eosinophils % 0.7 Eosinophils % (Manual) 0.0 D Basophils % 1.3 Basophils % (Manual) 0.0 Myelocytes % (Man) 5 H D Promyelocytes % (Man) 0 D Blast Cells % (Manual) 0 Nucleated RBC % 0 Metamyelocytes 0 Hypochromia 0 Platelet Estimate Normal Polychromasia 0 Poikilocytosis 0 Anisocytosis 0 Microcytosis 0 Macrocytosis 0 PTT (Actin FS) 53.8 H Sodium 143 Potassium 5.5 H Chloride 114 H Carbon Dioxide 20 L Anion Gap 9 BUN 123.5 H* Creatinine 3.7 H Est GFR (CKD-EPI)AfAm 17.96 Est GFR (CKD-EPI)NonAf 15.50 POC Glucometer Random Glucose 80 Calcium 8.2 L Magnesium 1.9 Total Bilirubin 0.2 AST 9 L ALT 20 Alkaline Phosphatase 152 H Total Protein 6.0 L Albumin 2.6 L 12/11/19 06:16 WBC RBC Hgb Hct MCV MCH MCHC RDW Plt Count MPV Absolute Neuts (auto) Neutrophils % Neutrophils % (Manual) Band Neutrophils % Lymphocytes % Lymphocytes % (Manual) Monocytes % Monocytes % (Manual) Eosinophils % Eosinophils % (Manual) Basophils % Basophils % (Manual) Myelocytes % (Man) Promyelocytes % (Man) Blast Cells % (Manual) Nucleated RBC % Metamyelocytes Hypochromia Platelet Estimate Polychromasia Poikilocytosis Anisocytosis Microcytosis Macrocytosis PTT (Actin FS) Sodium Potassium Chloride Carbon Dioxide Anion Gap BUN Creatinine Est GFR (CKD-EPI)AfAm Est GFR (CKD-EPI)NonAf POC Glucometer 89 Random Glucose Calcium Magnesium Total Bilirubin AST ALT Alkaline Phosphatase Total Protein Albumin Active Medications Generic Name Dose Route Start Last Admin Trade Name Freq PRN Reason Stop Dose Admin Heparin Sodium (Porcine) 1,000 unit 12/10/19 02:05 Heparin - IVPUSH PRN PRN Heparin Heparin Sodium (Porcine) 5,000 unit 12/10/19 02:05 Heparin - IVPUSH PRN PRN Heparin HEPARIN SOD,PORK IN 0.45% NACL 25,000 units in 500 mls @ 20 mls/hr 12/10/19 02 :15 12/11/19 07:41 Heparin-1/2ns 25,000 Units/500 IVPB 1,000 unit/hr TITR RADHA 20 mls/hr Titration Protocol 1,000 UNIT/HR Insulin Aspart 1 vial 12/10/19 07:00 12/11/19 06:34 Novolog Vial Sliding Scale - SQ Not Given ACHS [facility] Protocol Metoprolol Succinate 25 mg 12/10/19 10:00 12/11/19 09:31 Toprol Xl - PO Not Given BID [facility] Oxycodone HCl 20 mg 12/10/19 00:30 12/11/19 08:49 Roxicodone - PO 20 mg Q4H PRN Administration PAIN 4-6 Pantoprazole Sodium 40 mg 12/10/19 10:00 12/11/19 09:31 Protonix Iv IVPUSH 40 mg DAILY [facility] Administration Rosuvastatin Calcium 20 mg 12/10/19 22:00 12/10/19 22:35 Crestor - PO 20 mg HS [facility] Administration Sodium Bicarbonate 650 mg 12/10/19 10:00 12/11/19 09:31 Sodium Bicarbonate - PO Not Given DAILY [facility] Sodium Bicarbonate 50 meq 12/11/19 09:21 Sodium Bicarbonate 8.4% - IVPUSH 12/11/19 09:22 ONCE ONE Sodium Zirconium Cyclosilicate 10 gm 12/11/19 09:21 Lokelma PO DAILY [facility] Tamsulosin HCl 0.4 mg 12/10/19 08:30 12/11/19 09:31 Flomax - PO 0.4 mg DAILY@0830 [facility] Administration CBC, BMP 12/11/19 05:30 12/11/19 05:30 ASSESSMENT/PLAN: 69 PMH HfrEF CAD s/p CABG (03/17), ischemic cardiomyopathy (EF 30-35%), s/p PPM, 1st degree AV block, CKD stage III, CVA, COPD on home oxygen 4L who presents today with worsening renal function and requirement for regular dialysis. # ESRD # hyperkalemia , * last dialysis was 12/03/2019 according to . * Lokelma 10, Insulin 10, D50 1 am, and Calcium gluconate 1 gram given * Lasix 80 mg and 40 total of 120 * Bicarb 650 mg PO Daily. * Nephrology consulted, appreciate recs, for HD today * Vascular surgery consulted for permacath placement. Type and Screen, PT/INR, and NPO after med night #normocytic normochromic Anemia possibly 2/2 to UGIB * Hx of UGIB * FOBT ordered, pending * Protonix 40 mg Daily * GI consulted, appreciate recs * Iron studies, low iron normal ferritin ,folate and vitamin B12 normal * Monitor H/H daily * hold warfarin for procedure tomorrow can cont heparin #Hx of DM II * ISS * BGM ACHS #Hx of Afib, S CHF, ischemic cardiomypoathy , CABG # HLD cont statin * hold Warfarin * Continue metropolol * INR is therpeautic * Started on Heparin Drip, cont * Avoid NSAIDS # S/P PPM due to Mobitz I 2nd degree AV block , stable , monitor in tele Hx of chronic pain -Continuing home dose of oxycodone 20 mg PRN Q4H -Continue lyrica 50 mg PO BID # Hx of COPD * Duonebs PRN * 4L NC # H/O CVA hold warfarin for now , ASA held for GI bleed # Acute meatbolic encephalopathy due to uremia due to CKD # FEN F: No IV fluids E: monitor lytes N: NPO after mednight for perm cath placement tomorrow Dispo: tele monitor FOR HD today and perm cath Visit type - Emergency Visit Emergency Visit: Yes ED Registration Date: 12/09/19 Care time: The patient presented to the Emergency Department on the above date and was hospitalized for further evaluation of their emergent condition. - New Patient This patient is new to me today: No - Critical Care Critical Care patient: No ATTENDING PHYSICIAN STATEMENT I saw and evaluated the patient. I reviewed the resident's note and discussed the case with the resident. I agree with the resident's findings and plan as documented. SUBJECTIVE: OBJECTIVE: ASSESSMENT AND PLAN:
--- NOTE | 2019-12-11 10:35 | PN ---
Progress Note (short form) - Note Progress Note: s: no chest pain, palps, dizziness, dyspnea Current Medications Heparin Sodium (Porcine) (Heparin -) 1,000 unit IVPUSH PRN PRN PRN Reason: Heparin Heparin Sodium (Porcine) (Heparin -) 5,000 unit IVPUSH PRN PRN PRN Reason: Heparin HEPARIN SOD,PORK IN 0.45% NACL (Heparin-1/2ns 25,000 Units/500) 25,000 units in 500 mls @ 20 mls/hr IVPB TITR [facility]; Protocol Last Titration: 12/11/19 07:41 Dose: 1,000 unit/hr, 20 mls/hr Insulin Aspart (Novolog Vial Sliding Scale -) 1 vial SQ ACHS [facility]; Protocol Last Admin: 12/11/19 06:34 Dose: Not Given Metoprolol Succinate (Toprol Xl -) 25 mg PO BID [facility] Last Admin: 12/11/19 09:31 Dose: Not Given Oxycodone HCl (Roxicodone -) 20 mg PO Q4H PRN PRN Reason: PAIN 4-6 Last Admin: 12/11/19 08:49 Dose: 20 mg Pantoprazole Sodium (Protonix Iv) 40 mg IVPUSH DAILY [facility] Last Admin: 12/11/19 09:31 Dose: 40 mg Rosuvastatin Calcium (Crestor -) 20 mg PO HS [facility] Last Admin: 12/10/19 22:35 Dose: 20 mg Sodium Bicarbonate (Sodium Bicarbonate -) 650 mg PO DAILY [facility] Last Admin: 12/11/19 09:31 Dose: Not Given Sodium Bicarbonate (Sodium Bicarbonate 8.4% -) 50 meq IVPUSH ONCE ONE Stop: 12/11/19 09:22 Sodium Zirconium Cyclosilicate (Lokelma) 10 gm PO DAILY [facility] Tamsulosin HCl (Flomax -) 0.4 mg PO DAILY@0830 [facility] Last Admin: 12/11/19 09:31 Dose: 0.4 mg Vital Signs Period Temp Pulse Resp BP Sys/Chandra Pulse Ox Last 24 Hr 97.4 F-98 F 60-93 20-20 111-139/58-67 99-100 nad no jvd rrr s1s2 no mrg ctab aaox3 no le e/c/c abd nt nd pos bs no jaundice diaphoresis pos dp pt no carotid bruits ext wwp, no edema ecg: a sense, V paced, PVC LHC 05/15: 70-80% mRCA (ISR), 70-80% RPDA (ISR); 70-80% mLAD; 80-90% pLCX (small vessel); 90-95% OM2 (large vessel); 80-90% prox Ramus (large vessel) ...nonobstructive dz of note [id number]% ostial RCA, 50-60% eccentric lesion OM1 (large vessel); EDP 30-->25 post-nitro EF 38% (diffuse WMAs) Syntax score 20 Echo 10/29/18: mod LVE, mild global LV hypo (45-50%). RV tds. mild TR. no vegetations noted Echo 05/15: mod to sev decr LVEF; severe hypokinesis of all lindsey except basal segments. nl RV. mild MR/TR. no peric eff. Echo 01/2017: mild global HK, lvef 45-50, nl rv, nl rvsp, mild lae, mild tr Echo 11/11/2019: Severe LV dysfunction, EF < 35%. Mild PHTN. AVS Lexiscan MPI 11/12/2019: Large fixed anterior wall, apical, distal septal and distal inferior wall scar. No ischemia, EF 31% CXR: no acute process tele: , [employer] a/p: 69M h/o dm, ckd (1.5-2), CVA 10/2014, CAD s/p STEMI and multiple pci's, s/p CABG 02/2019, s/p PPM, ischemic CM with systolic chf, COPD, extensive smoking history (quit 12/2016) here with tremor, alt mental status BRANT, hyperkalemia - evaluated by renal here, plan for permacath and HD - received lasix 80 mg x 1 in ER - volume management per renal CAD: -2004 s/p PCI ([facility]) to 100% occl RPDA ([facility]) with patent prior RCA stents at that time, EF 50% then; -2011 s/p anterior STEMI 2011 with [place] LIBBY x 2 to mid LAD then ([facility]); residual 80% prox D1 (large vessel), 95% mD1; 70%mRCA (pre and post prior stents), 70% dCFX; (also 40% RPDA; 60% pCFX; 40% mCFX;) EF then 37% with AK of apex/AL lindsey and AK of IW; -2017 s/p NSTEMI in setting of sepsis/PNA-->[facility] with 70-80% mRCA (ISR), 70-80% RPDA (ISR); 70-80% mLAD; 80-90% pLCX (small vessel); 90-95% OM2 (large vessel); 80-90% prox Ramus (large vessel), 30-50% ostial RCA, 50-60% eccentric lesion OM1 (large vessel); - NSTEMI 02/2019, now s/p CABG at [facility] - cont statin, bb - aspirin stopped for hx GI bleed alt mental status, toxic metabolic encephalopathy - likely 2/2 uremia - improving anemia - GI consulted, holding warfarin for now - monitor H/H chronic syst CHF, ischemic cardiomyopathy - cont metoprolol - no WENDY/ARB for BRANT, hyperkalemia - hydralazine stopped for pos antihistone antibodies - received lasix as above, plan for HD - monitor daily weight, lytes, Cr HTN: - cont home meds Atrial fibrillation -[id number] score is high (including prior CVAs) and AC is warranted. however , recent GIB here w/drop in H/H and guaiac + stool that was not fully investigated with endoscopic evaluation ([facility] admit) as patient deemed high risk for scope and H/H stabilized then. -08/17 EGD from [facility] reviewed showing erosions felt to be bleeding culprit, rec' d avoidance of NSAIDs, PPI. ? h. pylori results, to be f/u'd and treated if indicated. -at last admission, GI disc'd options with pt and and they are presently deferring high-risk endoscopy, preferring instead to try re-challenge with AC with close monitoring. after discussions with patient, he wished to forego scopes and resume AC with warfarin and home draws using apex -ASA dc'ed to avoid incr bleeding risk - warfarin held here for planned permacath placement - cont heparin gtt for now s/p PPM, hx mobitz I 2nd degree AVB - stable function on EKG, tele - outpatient follow up HLD - cont statin h/o CVA: -dx'd lacunar infarct 02/10 clinically then (slurred speech) -? acute CVA/TIA 11/13 - holding warfarin, as above
[2019-12-11] MEDS: SODIUM ZIRCONIUM CYCLOSILICATE (LOKELMA) 5 GM PACKET PO SCH ×2 (11:22→14:23)
--- NOTE | 2019-12-11 13:20 | EKG ---
Test Reason : Blood Pressure : / mmHG Vent. Rate : 087 BPM Atrial Rate : 060 BPM P-R Int : 186 ms QRS Dur : 184 ms QT Int : 482 ms P-R-T Axes : 020 268 077 degrees QTc Int : 580 ms AV dual-paced rhythm WITH PREMATURE SUPRAVENTRICULAR COMPLEXES ABNORMAL ECG WHEN COMPARED WITH ECG OF 09-DEC-2019 19:14, PREMATURE VENTRICULAR COMPLEXES ARE NO LONGER PRESENT PREMATURE SUPRAVENTRICULAR COMPLEXES ARE NOW PRESENT VENT. RATE HAS INCREASED BY 14 BPM Confirmed by MD Gerardo, Saroj ([id number]) on 12/11/2019 1:19:53 PM Referred By: Cedrick EASON Confirmed By:Saroj Carrillo MD
[2019-12-11] MEDS ORDERED: SODIUM CHLORIDE 250 ML IV PRN ×2 (13:39→16:47)
--- NOTE | 2019-12-11 13:39 | PN ---
Progress Note, Physician History of Present Illness: Pt seen and examined at bedside. he is awake and alert. - Current Medication List Current Medications: Active Medications Heparin Sodium (Porcine) (Heparin -) 1,000 unit IVPUSH PRN PRN PRN Reason: Heparin Heparin Sodium (Porcine) (Heparin -) 5,000 unit IVPUSH PRN PRN PRN Reason: Heparin HEPARIN SOD,PORK IN 0.45% NACL (Heparin-1/2ns 25,000 Units/500) 25,000 units in 500 mls @ 20 mls/hr IVPB TITR [facility]; Protocol Last Titration: 12/11/19 07:41 Dose: 1,000 unit/hr, 20 mls/hr Insulin Aspart (Novolog Vial Sliding Scale -) 1 vial SQ ACHS [facility]; Protocol Last Admin: 12/11/19 11:21 Dose: Not Given Metoprolol Succinate (Toprol Xl -) 25 mg PO BID [facility] Last Admin: 12/11/19 09:31 Dose: Not Given Oxycodone HCl (Roxicodone -) 20 mg PO Q4H PRN PRN Reason: PAIN 4-6 Last Admin: 12/11/19 13:03 Dose: 20 mg Pantoprazole Sodium (Protonix Iv) 40 mg IVPUSH DAILY [facility] Last Admin: 12/11/19 09:31 Dose: 40 mg Rosuvastatin Calcium (Crestor -) 20 mg PO HS [facility] Last Admin: 12/10/19 22:35 Dose: 20 mg Sodium Bicarbonate (Sodium Bicarbonate -) 650 mg PO DAILY [facility] Last Admin: 12/11/19 09:31 Dose: Not Given Sodium Zirconium Cyclosilicate (Lokelma) 10 gm PO DAILY [facility] Last Admin: 12/11/19 11:22 Dose: 10 gm Tamsulosin HCl (Flomax -) 0.4 mg PO DAILY@0830 [facility] Last Admin: 12/11/19 09:31 Dose: 0.4 mg - Objective Vital Signs: Vital Signs Temperature 98 F 12/11/19 08:50 Pulse Rate 63 12/11/19 08:50 Respiratory Rate 20 12/11/19 08:50 Blood Pressure 139/65 12/11/19 08:50 O2 Sat by Pulse Oximetry (%) 99 12/11/19 08:50 Constitutional: Yes: Calm Eyes: Yes: Conjunctiva Clear HENT: Yes: Atraumatic Cardiovascular: Yes: S1, S2 Respiratory: Yes: CTA Bilaterally Gastrointestinal: Yes: Soft Genitourinary: Yes: WNL Edema: Yes Edema: LLE: Trace, RLE: Trace Neurological: Yes: Oriented Psychiatric: Yes: Oriented Labs: CBC, BMP 12/11/19 05:30 12/11/19 05:30 INR, PTT INR 2.95 (0.83-1.09) H 12/10/19 06:00 Problem List - Problems (1) BRANT (acute kidney injury) Code(s): N17.9 - ACUTE KIDNEY FAILURE, UNSPECIFIED Assessment/Plan Current Medications Generic Name Dose Route Start Last Admin Trade Name Freq PRN Reason Stop Dose Admin Heparin Sodium (Porcine) 1,000 unit 12/10/19 02:05 Heparin - IVPUSH PRN PRN Heparin Heparin Sodium (Porcine) 5,000 unit 12/10/19 02:05 Heparin - IVPUSH PRN PRN Heparin HEPARIN SOD,PORK IN 0.45% NACL 25,000 units in 500 mls @ 20 mls/hr 12/10/19 02 :15 12/11/19 07:41 Heparin-1/2ns 25,000 Units/500 IVPB 1,000 unit/hr TITR RADHA 20 mls/hr Titration Protocol 1,000 UNIT/HR Insulin Aspart 1 vial 12/10/19 07:00 12/11/19 11:21 Novolog Vial Sliding Scale - SQ Not Given ACHS [facility] Protocol Metoprolol Succinate 25 mg 12/10/19 10:00 12/11/19 09:31 Toprol Xl - PO Not Given BID [facility] Oxycodone HCl 20 mg 12/10/19 00:30 12/11/19 13:03 Roxicodone - PO 20 mg Q4H PRN Administration PAIN 4-6 Pantoprazole Sodium 40 mg 12/10/19 10:00 12/11/19 09:31 Protonix Iv IVPUSH 40 mg DAILY [facility] Administration Rosuvastatin Calcium 20 mg 12/10/19 22:00 12/10/19 22:35 Crestor - PO 20 mg HS [facility] Administration Sodium Bicarbonate 650 mg 12/10/19 10:00 12/11/19 09:31 Sodium Bicarbonate - PO Not Given DAILY [facility] Sodium Zirconium Cyclosilicate 10 gm 12/11/19 09:21 12/11/19 11:22 Lokelma PO 10 gm DAILY [facility] Administration Tamsulosin HCl 0.4 mg 12/10/19 08:30 12/11/19 09:31 Flomax - PO 0.4 mg DAILY@0830 [facility] Administration Impression 1. CKD 2. hyperkalemia 3. copd 4. chf 5. uremia 6. fluid overload 7. cva 8. anemia 9. ESRD Plan - mag level improved - pt for HD today - pt getting permacath - will need HD placement - he panel pending - do not restart hydralazine
[2019-12-11] MEDS ORDERED: LIDOCAINE HCL 1%, 10 MG/ML (20ML VIAL) ONE (14:19)
[2019-12-11] MEDS ORDERED: HEPARIN NA (PORCINE) 5,000 UNITS/ML 1ML VIAL ONE (14:19)
[2019-12-11] MEDS ORDERED: PROMETHAZINE HCL 25 MG/1 ML VIAL IVPB PRN ×2 (14:52→16:47)
[2019-12-11] MEDS ORDERED: ONDANSETRON 4 MG/2 ML VIAL IVPUSH PRN ×2 (14:52→16:47)
[2019-12-11] MEDS ORDERED: oxyCODONE HCL 5 MG TABLET PO PRN ×2 (14:52→16:47)
[2019-12-11] MEDS ORDERED: MIDAZOLAM HCL 2 MG/2 ML SINGLE DOSE VIAL ONE (15:08)
[2019-12-11] MEDS ORDERED: PROPOFOL 20 ML ONE (15:08)
[2019-12-11] MEDS ORDERED: LIDOCAINE HCL 1%, 10 MG/ML (20ML VIAL) NR ONE (15:46)
--- NOTE | 2019-12-11 16:28 | OP ---
Operative Note - Note: Operative Date: 12/11/19 Pre-Operative Diagnosis: ESRD Operation: Insertion of permacath Post-Operative Diagnosis: Same as Pre-op Surgeon: Isiah Carson Anesthesia: Fractional Estimated Blood Loss (mls): 20 Operative Report Dictated: Yes
[2019-12-11] MEDS ORDERED: HEPARIN NA (PORCINE) 5,000 UNITS/ML 1ML VIAL IVPUSH PRN ×3 (16:34→20:29)
[2019-12-11] MEDS ORDERED: SODIUM BICARBONATE 8.4% 50 MEQ/50 ML VIAL IVPUSH ONE (18:00)
[2019-12-11] MEDS ORDERED: PT OWN MED DRAWER 7, Y5N ONE (18:46)
--- NOTE | 2019-12-11 18:52 | PN ---
Teaching Attending Note Name of Resident: Dwaine Marlon ATTENDING PHYSICIAN STATEMENT I saw and evaluated the patient. I reviewed the resident's note and discussed the case with the resident. I agree with the resident's findings and plan as documented. SUBJECTIVE: No complaints. OBJECTIVE: Vital Signs Period Temp Pulse Resp BP Sys/Chandra Pulse Ox Last 24 Hr 97.4 F-98.4 F 60-66 14-20 111-144/58-85 97-100 HEART: S1S2, RRR LUNGS: Clear ABDOMEN: Soft, non-tender, non-distended, normal BS EXTREMITIES: No edema Laboratory Results - last 24 hr 12/10/19 12/11/19 12/11/19 22:34 05:30 05:30 WBC 7.3 RBC 2.79 L Hgb 7.7 L Hct 24.2 L MCV 86.9 MCH 27.5 MCHC 31.7 L RDW 15.9 Plt Count 285 MPV 8.8 Absolute Neuts (auto) 6.2 Neutrophils % 84.1 H Neutrophils % (Manual) 83.6 H Band Neutrophils % 0.0 Lymphocytes % 6.6 L Lymphocytes % (Manual) 5.8 L D Monocytes % 7.3 Monocytes % (Manual) 6 Eosinophils % 0.7 Eosinophils % (Manual) 0.0 D Basophils % 1.3 Basophils % (Manual) 0.0 Myelocytes % (Man) 5 H D Promyelocytes % (Man) 0 D Blast Cells % (Manual) 0 Nucleated RBC % 0 Metamyelocytes 0 Hypochromia 0 Platelet Estimate Normal Polychromasia 0 Poikilocytosis 0 Anisocytosis 0 Microcytosis 0 Macrocytosis 0 PTT (Actin FS) Sodium 143 Potassium 5.5 H Chloride 114 H Carbon Dioxide 20 L Anion Gap 9 BUN 123.5 H* Creatinine 3.7 H Est GFR (CKD-EPI)AfAm 17.96 Est GFR (CKD-EPI)NonAf 15.50 POC Glucometer 98 Random Glucose 80 Calcium 8.2 L Magnesium 1.9 Total Bilirubin 0.2 AST 9 L ALT 20 Alkaline Phosphatase 152 H Total Protein 6.0 L Albumin 2.6 L 12/11/19 12/11/19 12/11/19 05:30 06:16 11:20 WBC RBC Hgb Hct MCV MCH MCHC RDW Plt Count MPV Absolute Neuts (auto) Neutrophils % Neutrophils % (Manual) Band Neutrophils % Lymphocytes % Lymphocytes % (Manual) Monocytes % Monocytes % (Manual) Eosinophils % Eosinophils % (Manual) Basophils % Basophils % (Manual) Myelocytes % (Man) Promyelocytes % (Man) Blast Cells % (Manual) Nucleated RBC % Metamyelocytes Hypochromia Platelet Estimate Polychromasia Poikilocytosis Anisocytosis Microcytosis Macrocytosis PTT (Actin FS) 53.8 H Sodium Potassium Chloride Carbon Dioxide Anion Gap BUN Creatinine Est GFR (CKD-EPI)AfAm Est GFR (CKD-EPI)NonAf POC Glucometer 89 70 Random Glucose Calcium Magnesium Total Bilirubin AST ALT Alkaline Phosphatase Total Protein Albumin Current Medications Generic Name Dose Route Start Last Admin Trade Name Freq PRN Reason Stop Dose Admin Fentanyl 25 mcg 12/11/19 16:47 Sublimaze Injection - IVPUSH [id number] PRN PAIN-PACU ORDER X 4 DOSES ONLY Heparin Sodium (Porcine) 5,000 unit 12/11/19 20:29 Heparin - IVPUSH PRN PRN Heparin Heparin Sodium (Porcine) 1,000 unit 12/11/19 16:34 Heparin - IVPUSH PRN PRN Heparin Heparin Sodium (Porcine) 5,000 unit 12/11/19 16:34 Heparin - IVPUSH PRN PRN Heparin Heparin Sodium/Dextrose 25,000 units in 500 mls @ 20 mls/hr 12/11/19 20:45 Heparin Infusion - IVPB TITR [facility] Protocol 1,000 UNITS/HR Sodium Chloride 250 mls @ 3,000 mls/hr 12/11/19 16:47 Normal Saline - IV 12/12/19 13:39 PRN PRN Hypotension during Dialysis Insulin Aspart 1 vial 12/11/19 22:00 Novolog Vial Sliding Scale - SQ ACHS [facility] Protocol Metoprolol Succinate 25 mg 12/11/19 22:00 Toprol Xl - PO BID [facility] Ondansetron HCl 4 mg 12/11/19 16:47 Zofran Injection IVPUSH Q6H PRN NAUSEA AND/OR VOMITING Oxycodone HCl 20 mg 12/11/19 16:47 Roxicodone - PO Q4H PRN PAIN 4-6 Oxycodone HCl 5 mg 12/11/19 16:47 Roxicodone - PO 12/12/19 14:51 Q4H PRN PAIN LEVEL 1-5 Pantoprazole Sodium 40 mg 12/12/19 10:00 Protonix Iv IVPUSH DAILY [facility] Promethazine HCl 12.5 mg 12/11/19 16:47 Phenergan Injection - IVPB Q6H PRN NAUSEA-FOR RESCUE AFTER 15 MIN Rosuvastatin Calcium 20 mg 12/11/19 22:00 Crestor - PO HS [facility] Sodium Bicarbonate 650 mg 12/12/19 10:00 Sodium Bicarbonate - PO DAILY [facility] Sodium Zirconium Cyclosilicate 10 gm 12/12/19 10:00 Lokelma PO DAILY [facility] Tamsulosin HCl 0.4 mg 12/12/19 08:30 Flomax - PO DAILY@0830 [facility] ASSESSMENT AND PLAN: This is a 69 year old man with a history of ischemic CM, CAD, CABG, HTN, hyperlipidemia, a fib, stage 4 CKD, chronic hypoxic respiratory failure, COPD, type 2 DM, CVA who presented to the ED because labs showed worsening renal function. 1. Stage 4 CKD with hyperkalemia - s/p permacath placement today - Given Lokelma, regular insulin, calcium gluconate, Lasix with improvement in hyperkalemia - Continue Lokelma, sodium bicarb 2. Anemia secondary to CKD - BUN elevated likely secondary to uremia - Check stool occult blood to eval for upper GI bleed 3. Type 2 DM - Continue Novolog sliding scale 4. Atrial fib - Continue Toprol XL - Coumadin held for procedure - Continue heparin IV drip 5. Chronic hypoxic respiratory failure secondary to COPD - Oxygen to maintain saturation >90% 6. Peptic ulcer disease - Continue Protonix 7. Ischemic cardiomyopathy with chronic systolic heart failure 8. CAD, history of CABG - Continue Toprol XL, Crestor 9. HTN - Continue Toprol XL 10. Hyperlipidemia - Continue Crestor 11. 2nd degree AV block, history of pacemaker 12. History of CVA 13. Valvular heart disease 14. Chronic pain - Continue oxycodone as needed
--- NOTE | 2019-12-11 19:12 | PN ---
Progress Note (short form) - Note Progress Note: No GI complaints at this time. No BM. Abd soft, ND/NT, no mass Low Hgb (stable) with normal MCV. Normal ferritin, low iron, TIBC, iron sat. Though patient wishes to defer, will re-address endoscopic evaluation once stable from renal and other perspectives.
[2019-12-11] MEDS ORDERED: INSULIN (NOVOLOG) ASPART 100 UNITS/ML 10ML VIAL ONE (20:37)
[2019-12-11] MEDS: HEPARIN INFUSION - 25,000 UNITS/500 ML INFUS.BAG IVPB SCH (21:46)
[2019-12-11] MEDS: ROSUVASTATIN CA 20 MG TABLET (FP) PO SCH (21:47)
[2019-12-12] MEDS: oxyCODONE HCL 5 MG TABLET PO PRN ×5 (02:22→20:44)
--- NOTE | 2019-12-12 06:12 | PN ---
Physical Exam: SUBJECTIVE: Patient seen and examined at bed side , no acute events over night denies any fever, chills, N/V/D/C, S/P perm cath right ipper chest less shaky , tolerating diet need HD placement per nephro OBJECTIVE: Vital Signs Period Temp Pulse Resp BP Sys/Chandra Pulse Ox Last 24 Hr 97.7 F-98.5 F 60-80 14-20 118-156/58-96 97-100 GENERAL: awake alert in AND HEAD: NC/AT EYES: EOMI, Conjunctiva clear, sclera anicteric ENT: moist mucous membrane NECK: Supple, no JVD LUNGS: CTA B/L , right upper chest perm cath HEART: RRR, NSR, normal s1, s2, murmur no M/R/G, Med surgical scr CABG ABDOMEN: Soft, ND, NT, +BS 4 Q, no CVA Tenderness LOWER EXTREMITIES: no edema, +2DP pulse, NEUROLOGICAL: No focal deficit. Normal speech. gait not observed. PSYCHIATRIC: Cooperative. Good eye contact. Appropriate mood and affect. SKIN: Warm, dry, Laboratory Results - last 24 hr 12/11/19 12/11/19 12/11/19 05:30 05:30 05:30 WBC 7.3 RBC 2.79 L Hgb 7.7 L Hct 24.2 L MCV 86.9 MCH 27.5 MCHC 31.7 L RDW 15.9 Plt Count 285 MPV 8.8 Absolute Neuts (auto) 6.2 Neutrophils % 84.1 H Neutrophils % (Manual) 83.6 H Band Neutrophils % 0.0 Lymphocytes % 6.6 L Lymphocytes % (Manual) 5.8 L D Monocytes % 7.3 Monocytes % (Manual) 6 Eosinophils % 0.7 Eosinophils % (Manual) 0.0 D Basophils % 1.3 Basophils % (Manual) 0.0 Myelocytes % (Man) 5 H D Promyelocytes % (Man) 0 D Blast Cells % (Manual) 0 Nucleated RBC % 0 Metamyelocytes 0 Hypochromia 0 Platelet Estimate Normal Polychromasia 0 Poikilocytosis 0 Anisocytosis 0 Microcytosis 0 Macrocytosis 0 PTT (Actin FS) 53.8 H Sodium 143 Potassium 5.5 H Chloride 114 H Carbon Dioxide 20 L Anion Gap 9 BUN 123.5 H* Creatinine 3.7 H Est GFR (CKD-EPI)AfAm 17.96 Est GFR (CKD-EPI)NonAf 15.50 POC Glucometer Random Glucose 80 Calcium 8.2 L Magnesium 1.9 Total Bilirubin 0.2 AST 9 L ALT 20 Alkaline Phosphatase 152 H Total Protein 6.0 L Albumin 2.6 L 12/11/19 12/11/19 12/11/19 06:16 11:20 20:35 WBC RBC Hgb Hct MCV MCH MCHC RDW Plt Count MPV Absolute Neuts (auto) Neutrophils % Neutrophils % (Manual) Band Neutrophils % Lymphocytes % Lymphocytes % (Manual) Monocytes % Monocytes % (Manual) Eosinophils % Eosinophils % (Manual) Basophils % Basophils % (Manual) Myelocytes % (Man) Promyelocytes % (Man) Blast Cells % (Manual) Nucleated RBC % Metamyelocytes Hypochromia Platelet Estimate Polychromasia Poikilocytosis Anisocytosis Microcytosis Macrocytosis PTT (Actin FS) 40.8 H Sodium Potassium Chloride Carbon Dioxide Anion Gap BUN Creatinine Est GFR (CKD-EPI)AfAm Est GFR (CKD-EPI)NonAf POC Glucometer 89 70 Random Glucose Calcium Magnesium Total Bilirubin AST ALT Alkaline Phosphatase Total Protein Albumin 12/11/19 12/12/19 12/12/19 22:00 03:30 05:49 WBC RBC Hgb Hct MCV MCH MCHC RDW Plt Count MPV Absolute Neuts (auto) Neutrophils % Neutrophils % (Manual) Band Neutrophils % Lymphocytes % Lymphocytes % (Manual) Monocytes % Monocytes % (Manual) Eosinophils % Eosinophils % (Manual) Basophils % Basophils % (Manual) Myelocytes % (Man) Promyelocytes % (Man) Blast Cells % (Manual) Nucleated RBC % Metamyelocytes Hypochromia Platelet Estimate Polychromasia Poikilocytosis Anisocytosis Microcytosis Macrocytosis PTT (Actin FS) 52.9 H Sodium Potassium Chloride Carbon Dioxide Anion Gap BUN Creatinine Est GFR (CKD-EPI)AfAm Est GFR (CKD-EPI)NonAf POC Glucometer 177 110 Random Glucose Calcium Magnesium Total Bilirubin AST ALT Alkaline Phosphatase Total Protein Albumin Active Medications Generic Name Dose Route Start Last Admin Trade Name Freq PRN Reason Stop Dose Admin Fentanyl 25 mcg 12/11/19 16:47 Sublimaze Injection - IVPUSH [id number] PRN PAIN-PACU ORDER X 4 DOSES ONLY Heparin Sodium (Porcine) 5,000 unit 12/11/19 20:29 Heparin - IVPUSH PRN PRN Heparin Heparin Sodium (Porcine) 1,000 unit 12/11/19 16:34 12/11/19 21:48 Heparin - IVPUSH 1,000 unit PRN PRN Administration Heparin Heparin Sodium (Porcine) 5,000 unit 12/11/19 16:34 Heparin - IVPUSH PRN PRN Heparin Heparin Sodium/Dextrose 25,000 units in 500 mls @ 20 mls/hr 12/11/19 20:45 21:46 Heparin Infusion - IVPB 1,100 units/hr TITR RADHA 22 mls/hr Administration Protocol 1,000 UNITS/HR Sodium Chloride 250 mls @ 3,000 mls/hr 12/11/19 16:47 Normal Saline - IV 12/12/19 13:39 PRN PRN Hypotension during Dialysis Insulin Aspart 1 vial 12/11/19 22:00 12/11/19 22:04 Novolog Vial Sliding Scale - SQ Not Given ACHS [facility] Protocol Metoprolol Succinate 25 mg 12/11/19 22:00 12/11/19 21:47 Toprol Xl - PO 25 mg BID RADHA Administration Ondansetron HCl 4 mg 12/11/19 16:47 Zofran Injection IVPUSH Q6H PRN NAUSEA AND/OR VOMITING Oxycodone HCl 20 mg 12/11/19 16:47 12/12/19 02:22 Roxicodone - PO 20 mg Q4H PRN Administration PAIN 4-6 Oxycodone HCl 5 mg 12/11/19 16:47 Roxicodone - PO 12/12/19 14:51 Q4H PRN PAIN LEVEL 1-5 Pantoprazole Sodium 40 mg 12/12/19 10:00 Protonix Iv IVPUSH DAILY [facility] Promethazine HCl 12.5 mg 12/11/19 16:47 Phenergan Injection - IVPB Q6H PRN NAUSEA-FOR RESCUE AFTER 15 MIN Rosuvastatin Calcium 20 mg 12/11/19 22:00 12/11/19 21:47 Crestor - PO 20 mg HS [facility] Administration Sodium Bicarbonate 650 mg 12/12/19 10:00 Sodium Bicarbonate - PO DAILY [facility] Sodium Zirconium Cyclosilicate 10 gm 12/12/19 10:00 Lokelma PO DAILY [facility] Tamsulosin HCl 0.4 mg 12/12/19 08:30 Flomax - PO DAILY@0830 [facility] CBC, BMP 12/12/19 06:05 12/12/19 06:05 ASSESSMENT/PLAN: 69 PMH HfrEF CAD s/p CABG (03/17), ischemic cardiomyopathy (EF 30-35%), s/p PPM, 1st degree AV block, CKD stage III, CVA, COPD on home oxygen 4L who presents today with worsening renal function and requirement for regular dialysis. # ESRD # hyperkalemia ,resolved * last dialysis was 12/03/2019 according to . * Lokelma 10, Insulin 10, D50 1 am, and Calcium gluconate 1 gram given * Lasix 80 mg and 40 total of 120 * Bicarb 650 mg PO Daily. * Nephrology consulted, appreciate recs, S/P HD * Vascular surgery consulted for permacath placement. Type and Screen, PT/INR, #normocytic normochromic Anemia possibly 2/2 to UGIB * Hx of UGIB * FOBT ordered, pending * Protonix 40 mg Daily * GI consulted, appreciate recs * Iron studies, low iron normal ferritin ,folate and vitamin B12 normal * Monitor H/H daily * hold warfarin for procedure tomorrow can cont heparin #Hx of DM II * ISS * BGM ACHS #Hx of Afib, S CHF, ischemic cardiomypoathy , CABG # HLD cont statin * hold Warfarin * Continue metropolol * INR is therpeautic * Started on Heparin Drip, cont * Avoid NSAIDS # S/P PPM due to Mobitz I 2nd degree AV block , stable , monitor in tele Hx of chronic pain -Continuing home dose of oxycodone 20 mg PRN Q4H -Continue lyrica 50 mg PO BID # Hx of COPD * Duonebs PRN * 4L NC # H/O CVA hold warfarin for now , ASA held for GI bleed # Acute meatbolic encephalopathy due to uremia due to CKD # FEN F: No IV fluids E: monitor lytes N: renal diet Dispo: tele monitor pending HD placement Visit type - Emergency Visit Emergency Visit: Yes ED Registration Date: 12/09/19 Care time: The patient presented to the Emergency Department on the above date and was hospitalized for further evaluation of their emergent condition. - New Patient This patient is new to me today: No - Critical Care Critical Care patient: No - Discharge Referral Referred to [facility] Med [facility] No ATTENDING PHYSICIAN STATEMENT I saw and evaluated the patient. I reviewed the resident's note and discussed the case with the resident. I agree with the resident's findings and plan as documented. SUBJECTIVE: OBJECTIVE: ASSESSMENT AND PLAN:
[2019-12-12] MEDS: INSULIN SLIDING SCALE (NOVOLOG) 1 VIAL SQ SCH ×4 (06:36→22:10)
[2019-12-12 06:47] LABS: BASO % 1.4 % (0-2.0); EOS % 0.4 % (0-4.5); HEMATOCRIT 24.6 % (35.4-49); LYMPH % 4.7 % (8-40); MCH 27.5 pg (25.7-33.7); MCHC 32.5 g/dl (32.0-35.9); MEAN CELL VOLUME 84.6 fl (80-96); MEAN PLT VOLUME 8.7 fl (7.5-11.1); MONO % 6.1 % (3.8-10.2); NEUT % 87.4 % (42.8-82.8); PLATELET COUNT 270 K/MM3 (134-434); RDW 16.1 % (11.9-15.9); WHITE BLOOD COUNT 8.5 K/mm3 (4.0-10.0)
[2019-12-12] MEDS: TAMSULOSIN HCL 0.4 MG CAP PO SCH (07:32)
[2019-12-12 07:38] LABS: ALBUMIN 2.5 g/dl (3.4-5.0); BILIRUBIN,TOTAL 0.2 mg/dL (0.2-1); BLOOD UREA NITROGEN 56.6 mg/dL (7-18); CALCIUM 7.7 mg/dL (8.5-10.1); CREATININE 2.1 mg/dL (0.55-1.3); PHOSPHOROUS 2.9 mg/dL (2.5-4.9); POTASSIUM 4.4 mmol/L (3.5-5.1)
[2019-12-12] MEDS ORDERED: SODIUM BICARBONATE 650 MG TABLET PO SCH (10:00)
[2019-12-12 10:07] LABS: ANISOCYTOSIS 1+; MACROCYTOSIS 0; OVALOCYTE 1+; PLATELET ESTIMATE NORMAL
[2019-12-12] MEDS: PANTOPRAZOLE SODIUM 40 MG VIAL IVPUSH SCH (10:15)
[2019-12-12] MEDS: metoPROLOL SUCCINATE 25 MG TAB.SR.24H (FP) PO SCH ×2 (10:15→22:10)
[2019-12-12] MEDS: SODIUM ZIRCONIUM CYCLOSILICATE (LOKELMA) 5 GM PACKET PO SCH (10:16)
--- NOTE | 2019-12-12 10:29 | PN ---
Progress Note (short form) - Note Progress Note: s: no chest pain, palps, dizziness, dyspnea Current Medications Generic Name Dose Route Start Last Admin Trade Name Freq PRN Reason Stop Dose Admin Fentanyl 25 mcg 12/11/19 16:47 Sublimaze Injection - IVPUSH [id number] PRN PAIN-PACU ORDER X 4 DOSES ONLY Heparin Sodium (Porcine) 5,000 unit 12/11/19 20:29 Heparin - IVPUSH PRN PRN Heparin Heparin Sodium (Porcine) 1,000 unit 12/11/19 16:34 12/11/19 21:48 Heparin - IVPUSH 1,000 unit PRN PRN Administration Heparin Heparin Sodium (Porcine) 5,000 unit 12/11/19 16:34 Heparin - IVPUSH PRN PRN Heparin Heparin Sodium/Dextrose 25,000 units in 500 mls @ 20 mls/hr 12/11/19 20:45 05:00 Heparin Infusion - IVPB 1,100 units/hr TITR RADHA 22 mls/hr Titration Protocol 1,000 UNITS/HR Sodium Chloride 250 mls @ 3,000 mls/hr 12/11/19 16:47 Normal Saline - IV 12/12/19 13:39 PRN PRN Hypotension during Dialysis Insulin Aspart 1 vial 12/11/19 22:00 12/12/19 06:36 Novolog Vial Sliding Scale - SQ Not Given ACHS RAD[facility] Protocol Metoprolol Succinate 25 mg 12/11/19 22:00 12/12/19 10:15 Toprol Xl - PO 25 mg BID RADHA Administration Ondansetron HCl 4 mg 12/11/19 16:47 Zofran Injection IVPUSH Q6H PRN NAUSEA AND/OR VOMITING Oxycodone HCl 20 mg 12/11/19 16:47 12/12/19 07:32 Roxicodone - PO 20 mg Q4H PRN Administration PAIN 4-6 Oxycodone HCl 5 mg 12/11/19 16:47 Roxicodone - PO 12/12/19 14:51 Q4H PRN PAIN LEVEL 1-5 Pantoprazole Sodium 40 mg 12/12/19 10:00 12/12/19 10:15 Protonix Iv IVPUSH 40 mg DAILY RADHA Administration Promethazine HCl 12.5 mg 12/11/19 16:47 Phenergan Injection - IVPB Q6H PRN NAUSEA-FOR RESCUE AFTER 15 MIN Rosuvastatin Calcium 20 mg 12/11/19 22:00 12/11/19 21:47 Crestor - PO 20 mg HS RADHA Administration Sodium Bicarbonate 650 mg 12/12/19 10:00 12/12/19 10:15 Sodium Bicarbonate - PO 650 mg DAILY RAD[facility] Administration Sodium Zirconium Cyclosilicate 10 gm 12/12/19 10:00 12/12/19 10:16 Lokelma PO 10 gm DAILY RADHA Administration Tamsulosin HCl 0.4 mg 12/12/19 08:30 12/12/19 07:32 Flomax - PO 0.4 mg DAILY@0830 RADHA Administration Vital Signs Period Temp Pulse Resp BP Sys/Chandra Pulse Ox Last 24 Hr 97.7 F-98.5 F 60-80 14-20 118-156/58-96 97-100 nad no jvd rrr s1s2 no mrg ctab aaox3 no le e/c/c abd nt nd pos bs no jaundice diaphoresis pos dp pt no carotid bruits no edema CBC, BMP 12/12/19 06:05 12/12/19 06:05 ecg: a sense, V paced LHC 05/15: 70-80% mRCA (ISR), 70-80% RPDA (ISR); 70-80% mLAD; 80-90% pLCX (small vessel); 90-95% OM2 (large vessel); 80-90% prox Ramus (large vessel) ...nonobstructive dz of note [id number]% ostial RCA, 50-60% eccentric lesion OM1 (large vessel); EDP 30-->25 post-nitro EF 38% (diffuse WMAs) Syntax score 20 Echo 10/29/18: mod LVE, mild global LV hypo (45-50%). RV tds. mild TR. no vegetations noted Echo 05/15: mod to sev decr LVEF; severe hypokinesis of all lindsey except basal segments. nl RV. mild MR/TR. no peric eff. Echo 01/2017: mild global HK, lvef 45-50, nl rv, nl rvsp, mild lae, mild tr Echo 11/11/2019: Severe LV dysfunction, EF < 35%. Mild PHTN. AVS Lexiscan MPI 11/12/2019: Large fixed anterior wall, apical, distal septal and distal inferior wall scar. No ischemia, EF 31% CXR: no acute process a/p: 69M h/o dm, ckd (1.5-2), CVA 10/2014, CAD s/p STEMI and multiple pci's, s/p CABG 02/2019, s/p PPM, ischemic CM with systolic chf, COPD, extensive smoking history (quit 12/2016) here with tremor, alt mental status BRANT, hyperkalemia - evaluated by renal here, s/p permacath for HD - volume management per renal CAD: -2004 s/p PCI ([facility]) to 100% occl RPDA ([facility]) with patent prior RCA stents at that time, EF 50% then; -2011 s/p anterior STEMI 2011 with [facility] x 2 to mid LAD then ([facility]); residual 80% prox D1 (large vessel), 95% mD1; 70%mRCA (pre and post prior stents), 70% dCFX; (also 40% RPDA; 60% pCFX; 40% mCFX;) EF then 37% with AK of apex/AL lindsey and AK of IW; -2016 s/p NSTEMI in setting of sepsis/PNA-->[facility] with 70-80% mRCA (ISR), 70-80% RPDA (ISR); 70-80% mLAD; 80-90% pLCX (small vessel); 90-95% OM2 (large vessel); 80-90% prox Ramus (large vessel), 30-50% ostial RCA, 50-60% eccentric lesion OM1 (large vessel); - NSTEMI 02/2019, now s/p CABG at [facility] - cont statin, bb - aspirin stopped for hx GI bleed alt mental status, toxic metabolic encephalopathy - likely 2/2 uremia - improving anemia - GI consulted, holding warfarin for now - monitor H/H chronic syst CHF, ischemic cardiomyopathy - cont metoprolol - no WENDY/ARB for BRANT, hyperkalemia - hydralazine stopped for pos antihistone antibodies - received lasix as above, plan for HD - monitor daily weight, lytes, Cr HTN: - cont home meds Atrial fibrillation -[id number] score is high (including prior CVAs) and AC is warranted. however , recent GIB here w/drop in H/H and guaiac + stool that was not fully investigated with endoscopic evaluation ([facility] admit) as patient deemed high risk for scope and H/H stabilized then. -08/17 EGD from [facility] reviewed showing erosions felt to be bleeding culprit, rec' d avoidance of NSAIDs, PPI. ? h. pylori results, to be f/u'd and treated if indicated. -at last admission, GI disc'd options with pt and and they are presently deferring high-risk endoscopy, preferring instead to try re-challenge with AC with close monitoring. after discussions with patient, he wished to forego scopes and resume AC with warfarin and home draws using apex -ASA dc'ed to avoid incr bleeding risk - warfarin held here for permacath placement - cont heparin gtt for now, resume coumadin if no further procedures planned s/p PPM, hx mobitz I 2nd degree AVB - stable function on EKG, tele - outpatient follow up HLD - cont statin h/o CVA: -dx'd lacunar infarct 02/10 clinically then (slurred speech) -? acute CVA/TIA 11/13 - holding warfarin, as above
--- NOTE | 2019-12-12 12:41 | OP ---
DATE OF OPERATION: 12/11/2019 PREOPERATIVE DIAGNOSIS: End-stage renal disease. POSTOPERATIVE DIAGNOSIS: End-stage renal disease. PROCEDURE: Insertion of Permacath. SURGEON: Isiah Ramey DO ANESTHESIA: Fractional. BLOOD LOSS: 20 mL. DESCRIPTION OF PROCEDURE: Patient is a 69-year-old male that needs temporary dialysis catheter placement. Patient was consented for the procedure understanding all risks, benefits, and alternatives. He was then taken to the operating room. Once in the operating room was laid on the operating table in a supine manner. Area of the right neck and chest were prepped and draped in sterile surgical manner. We then went ahead and under ultrasound guidance visualized the right internal jugular vein and 10 mL of lidocaine 1% was injected there. We took our micropuncture needle and punctured the right internal jugular vein. Micropuncture wire was inserted, and micropuncture sheath was inserted, and 0.035 floppy guidewire was inserted under fluoroscopy. We then injected 10 mL of lidocaine 1% above and below the clavicle. We then took an 11 blade and made a 1-cm incision at the puncture site. We then took a 15 blade and made a 1-cm incision below the clavicle. We then tunneled the Permacath up to the puncture site. We then took our breakaway sheath and placed over the guidewire into the vein under fluoroscopy, and the cannula and guidewire were removed. Catheter was placed inside the sheath. Sheath was broken away as the catheter was placed inside the vein. Neck of the catheter was nice and smooth. Tip of the catheter was located inside the right atrium. We then yash back on each port of the catheter, and there was good flow. Heparinized saline was injected, and 2000 units of IV heparin was injected into each port. Biosyn 4-0 was then used and 2 simple stitches were placed at the puncture site. Nylon 3-0 was used and the catheter was attached to the skin. BIOPATCH, Steri-Strips, 4 x 4's, and Tegaderm were placed. Patient tolerated the procedure with no complications. Patient was transferred to PACU in stable condition where a chest x-ray will be ordered. ISIAH RAMEY DO CORRESPONDENCE DICTATOR/[id number]
[2019-12-12] MEDS ORDERED: SODIUM CHLORIDE 250 ML IV PRN (14:23)
--- NOTE | 2019-12-12 14:23 | PN ---
Progress Note, Physician History of Present Illness: Pt seen and examined at bedside. He is awake and appears comfortable. he denies shortness of breath. - Current Medication List Current Medications: Active Medications Fentanyl (Sublimaze Injection -) 25 mcg IVPUSH [id number] PRN PRN Reason: PAIN-PACU ORDER X 4 DOSES ONLY Heparin Sodium (Porcine) (Heparin -) 5,000 unit IVPUSH PRN PRN PRN Reason: Heparin Heparin Sodium (Porcine) (Heparin -) 1,000 unit IVPUSH PRN PRN PRN Reason: Heparin Last Admin: 12/11/19 21:48 Dose: 1,000 unit Heparin Sodium (Porcine) (Heparin -) 5,000 unit IVPUSH PRN PRN PRN Reason: Heparin Heparin Sodium/Dextrose (Heparin Infusion -) 25,000 units in 500 mls @ 20 mls/ hr IVPB TITR [facility]; Protocol Last Titration: 12/12/19 05:00 Dose: 1,100 units/hr, 22 mls/hr Sodium Chloride (Normal Saline -) 250 mls @ 3,000 mls/hr IV PRN PRN PRN Reason: Hypotension during Dialysis Stop: 12/12/19 13:39 Insulin Aspart (Novolog Vial Sliding Scale -) 1 vial SQ ACHS [facility]; Protocol Last Admin: 12/12/19 11:40 Dose: 2 units Metoprolol Succinate (Toprol Xl -) 25 mg PO BID [facility] Last Admin: 12/12/19 10:15 Dose: 25 mg Ondansetron HCl (Zofran Injection) 4 mg IVPUSH Q6H PRN PRN Reason: NAUSEA AND/OR VOMITING Oxycodone HCl (Roxicodone -) 20 mg PO Q4H PRN PRN Reason: PAIN 4-6 Last Admin: 12/12/19 11:33 Dose: 20 mg Oxycodone HCl (Roxicodone -) 5 mg PO Q4H PRN PRN Reason: PAIN LEVEL 1-5 Stop: 12/12/19 14:51 Pantoprazole Sodium (Protonix Iv) 40 mg IVPUSH DAILY [facility] Last Admin: 12/12/19 10:15 Dose: 40 mg Promethazine HCl (Phenergan Injection -) 12.5 mg IVPB Q6H PRN PRN Reason: NAUSEA-FOR RESCUE AFTER 15 MIN Rosuvastatin Calcium (Crestor -) 20 mg PO HS [facility] Last Admin: 12/11/19 21:47 Dose: 20 mg Sodium Bicarbonate (Sodium Bicarbonate -) 650 mg PO DAILY [facility] Last Admin: 12/12/19 10:15 Dose: 650 mg Sodium Zirconium Cyclosilicate (Lokelma) 10 gm PO DAILY [facility] Last Admin: 12/12/19 10:16 Dose: 10 gm Tamsulosin HCl (Flomax -) 0.4 mg PO DAILY@0830 [facility] Last Admin: 12/12/19 07:32 Dose: 0.4 mg - Objective Vital Signs: Vital Signs Temperature 98.4 F 12/12/19 10:00 Pulse Rate 66 12/12/19 10:00 Respiratory Rate 18 12/12/19 10:00 Blood Pressure 142/67 12/12/19 10:00 O2 Sat by Pulse Oximetry (%) 100 12/12/19 09:00 Constitutional: Yes: Calm Eyes: Yes: Conjunctiva Clear HENT: Yes: Atraumatic Neck: Yes: Supple Cardiovascular: Yes: S1, S2 Respiratory: Yes: CTA Bilaterally Gastrointestinal: Yes: Soft Genitourinary: Yes: WNL Musculoskeletal: Yes: WNL Edema: LLE: Trace, RLE: Trace Neurological: Yes: Oriented Psychiatric: Yes: Oriented Labs: CBC, BMP 12/12/19 06:05 12/12/19 06:05 INR, PTT INR 2.95 (0.83-1.09) H 12/10/19 06:00 Problem List - Problems (1) BRANT (acute kidney injury) Code(s): N17.9 - ACUTE KIDNEY FAILURE, UNSPECIFIED Assessment/Plan Current Medications Generic Name Dose Route Start Last Admin Trade Name Manohar PRN Reason Stop Dose Admin Fentanyl 25 mcg 12/11/19 16:47 Sublimaze Injection - IVPUSH [id number] PRN PAIN-PACU ORDER X 4 DOSES ONLY Heparin Sodium (Porcine) 5,000 unit 12/11/19 20:29 Heparin - IVPUSH PRN PRN Heparin Heparin Sodium (Porcine) 1,000 unit 12/11/19 16:34 12/11/19 21:48 Heparin - IVPUSH 1,000 unit PRN PRN Administration Heparin Heparin Sodium (Porcine) 5,000 unit 12/11/19 16:34 Heparin - IVPUSH PRN PRN Heparin Heparin Sodium/Dextrose 25,000 units in 500 mls @ 20 mls/hr 12/11/19 20:45 05:00 Heparin Infusion - IVPB 1,100 units/hr TITR RADHA 22 mls/hr Titration Protocol 1,000 UNITS/HR Sodium Chloride 250 mls @ 3,000 mls/hr 12/11/19 16:47 Normal Saline - IV 12/12/19 13:39 PRN PRN Hypotension during Dialysis Insulin Aspart 1 vial 12/11/19 22:00 12/12/19 11:40 Novolog Vial Sliding Scale - SQ 2 units ACHS [facility] Administration Protocol Metoprolol Succinate 25 mg 12/11/19 22:00 12/12/19 10:15 Toprol Xl - PO 25 mg BID RADHA Administration Ondansetron HCl 4 mg 12/11/19 16:47 Zofran Injection IVPUSH Q6H PRN NAUSEA AND/OR VOMITING Oxycodone HCl 20 mg 12/11/19 16:47 12/12/19 11:33 Roxicodone - PO 20 mg Q4H PRN Administration PAIN 4-6 Oxycodone HCl 5 mg 12/11/19 16:47 Roxicodone - PO 12/12/19 14:51 Q4H PRN PAIN LEVEL 1-5 Pantoprazole Sodium 40 mg 12/12/19 10:00 12/12/19 10:15 Protonix Iv IVPUSH 40 mg DAILY RADHA Administration Promethazine HCl 12.5 mg 12/11/19 16:47 Phenergan Injection - IVPB Q6H PRN NAUSEA-FOR RESCUE AFTER 15 MIN Rosuvastatin Calcium 20 mg 12/11/19 22:00 12/11/19 21:47 Crestor - PO 20 mg HS RADHA Administration Sodium Bicarbonate 650 mg 12/12/19 10:00 12/12/19 10:15 Sodium Bicarbonate - PO 650 mg DAILY RADHA Administration Sodium Zirconium Cyclosilicate 10 gm 12/12/19 10:00 12/12/19 10:16 Lokelma PO 10 gm DAILY RADHA Administration Tamsulosin HCl 0.4 mg 12/12/19 08:30 12/12/19 07:32 Flomax - PO 0.4 mg DAILY@0830 RADHA Administration Impression 1. CKD 2. hyperkalemia 3. copd 4. chf 5. uremia 6. fluid overload 7. cva 8. anemia 9. ESRD 10 positive anti-histone ab Plan - pt tolerated HD yesterday - will order HD for tomorrow - d/c po bicarb - pending placement in HD - will repeat anca - check mag
--- NOTE | 2019-12-12 16:03 | PN ---
Teaching Attending Note Name of Resident: Dwaine Mason Subjective: Patient seen and examined bedside. Denies complaints, breathing comfortably. Scheduled for HD tomorrow. Objective: GENERAL: awake alert in AND HEAD: NC/AT EYES: EOMI, Conjunctiva clear, sclera anicteric ENT: moist mucous membrane NECK: Supple, no JVD LUNGS: CTA B/L , right upper chest perm cath HEART: RRR, NSR, normal s1, s2, murmur no M/R/G, Med surgical scr CABG ABDOMEN: Soft, ND, NT, +BS 4 Q, no CVA Tenderness LOWER EXTREMITIES: no edema, +2DP pulse, NEUROLOGICAL: No focal deficit. Normal speech. gait not observed. PSYCHIATRIC: Cooperative. Good eye contact. Appropriate mood and affect. SKIN: Warm, dry, Vital Signs - 24 hr 12/11/19 12/11/19 12/11/19 16:15 16:30 16:45 Temperature 98.4 F Pulse Rate 66 62 60 Respiratory 14 16 16 Rate Blood Pressure 131/58 L 134/58 L 144/64 O2 Sat by Pulse 97 99 99 Oximetry (%) 12/11/19 12/11/19 12/11/19 17:00 17:15 17:23 Temperature 98 F Pulse Rate 60 60 60 Respiratory 16 16 16 Rate Blood Pressure 130/67 132/85 123/81 O2 Sat by Pulse 100 100 100 Oximetry (%) 12/11/19 12/11/19 12/11/19 19:00 19:05 19:35 Temperature Pulse Rate 80 80 60 Respiratory 18 18 18 Rate Blood Pressure 130/71 140/70 118/78 O2 Sat by Pulse Oximetry (%) 12/11/19 12/11/19 12/11/19 20:05 20:35 21:00 Temperature Pulse Rate 60 60 Respiratory 18 18 18 Rate Blood Pressure 123/58 L 130/96 O2 Sat by Pulse 100 Oximetry (%) 12/11/19 12/11/19 12/11/19 21:05 21:35 21:46 Temperature Pulse Rate 60 67 69 Respiratory 18 18 18 Rate Blood Pressure 144/69 144/92 145/84 O2 Sat by Pulse Oximetry (%) 12/11/19 12/12/19 12/12/19 22:00 02:00 09:00 Temperature 98.2 F 98.5 F Pulse Rate 60 70 Respiratory 18 20 18 Rate Blood Pressure 123/58 L 156/89 O2 Sat by Pulse 100 Oximetry (%) 12/12/19 12/12/19 10:00 14:00 Temperature 98.4 F 99.1 F Pulse Rate 66 68 Respiratory 18 20 Rate Blood Pressure 142/67 164/77 O2 Sat by Pulse Oximetry (%) Laboratory Results - last 24 hr 12/11/19 12/11/19 12/12/19 20:35 22:00 03:30 WBC RBC Hgb Hct MCV MCH MCHC RDW Plt Count MPV Absolute Neuts (auto) Neutrophils % Neutrophils % (Manual) Band Neutrophils % Lymphocytes % Lymphocytes % (Manual) Monocytes % Monocytes % (Manual) Eosinophils % Eosinophils % (Manual) Basophils % Basophils % (Manual) Myelocytes % (Man) Promyelocytes % (Man) Blast Cells % (Manual) Nucleated RBC % Metamyelocytes Hypochromia Platelet Estimate Polychromasia Poikilocytosis Basophilic Stippling Anisocytosis Microcytosis Macrocytosis Ovalocytes PTT (Actin FS) 40.8 H 52.9 H Sodium Potassium Chloride Carbon Dioxide Anion Gap BUN Creatinine Est GFR (CKD-EPI)AfAm Est GFR (CKD-EPI)NonAf POC Glucometer 177 Random Glucose Calcium Phosphorus Total Bilirubin AST ALT Alkaline Phosphatase Total Protein Albumin 12/12/19 12/12/19 12/12/19 05:49 06:05 06:05 WBC 8.5 RBC 2.90 L Hgb 8.0 L Hct 24.6 L MCV 84.6 MCH 27.5 MCHC 32.5 RDW 16.1 H Plt Count 270 MPV 8.7 Absolute Neuts (auto) 7.5 Neutrophils % 87.4 H Neutrophils % (Manual) 83.0 H Band Neutrophils % 0.0 Lymphocytes % 4.7 L D Lymphocytes % (Manual) 4.0 L D Monocytes % 6.1 Monocytes % (Manual) 8 Eosinophils % 0.4 Eosinophils % (Manual) 1.0 D Basophils % 1.4 Basophils % (Manual) 2.0 D Myelocytes % (Man) 2 D Promyelocytes % (Man) 0 Blast Cells % (Manual) 0 Nucleated RBC % 0 Metamyelocytes 0 Hypochromia 0 Platelet Estimate Normal Polychromasia 0 Poikilocytosis 1+ Basophilic Stippling 1+ Anisocytosis 1+ Microcytosis 1+ Macrocytosis 0 Ovalocytes 1+ PTT (Actin FS) Sodium 142 Potassium 4.4 Chloride 108 H Carbon Dioxide 27 Anion Gap 7 L BUN 56.6 H Creatinine 2.1 H Est GFR (CKD-EPI)AfAm 35.63 Est GFR (CKD-EPI)NonAf 30.74 POC Glucometer 110 Random Glucose 117 H Calcium 7.7 L Phosphorus 2.9 Total Bilirubin 0.2 AST 10 L ALT 15 Alkaline Phosphatase 152 H Total Protein 6.0 L Albumin 2.5 L 12/12/19 11:37 WBC RBC Hgb Hct MCV MCH MCHC RDW Plt Count MPV Absolute Neuts (auto) Neutrophils % Neutrophils % (Manual) Band Neutrophils % Lymphocytes % Lymphocytes % (Manual) Monocytes % Monocytes % (Manual) Eosinophils % Eosinophils % (Manual) Basophils % Basophils % (Manual) Myelocytes % (Man) Promyelocytes % (Man) Blast Cells % (Manual) Nucleated RBC % Metamyelocytes Hypochromia Platelet Estimate Polychromasia Poikilocytosis Basophilic Stippling Anisocytosis Microcytosis Macrocytosis Ovalocytes PTT (Actin FS) Sodium Potassium Chloride Carbon Dioxide Anion Gap BUN Creatinine Est GFR (CKD-EPI)AfAm Est GFR (CKD-EPI)NonAf POC Glucometer 181 Random Glucose Calcium Phosphorus Total Bilirubin AST ALT Alkaline Phosphatase Total Protein Albumin Current Medications Generic Name Dose Route Start Last Admin Trade Name Freq PRN Reason Stop Dose Admin Fentanyl 25 mcg 12/11/19 16:47 Sublimaze Injection - IVPUSH [id number] PRN PAIN-PACU ORDER X 4 DOSES ONLY Heparin Sodium (Porcine) 5,000 unit 12/11/19 20:29 Heparin - IVPUSH PRN PRN Heparin Heparin Sodium (Porcine) 1,000 unit 12/11/19 16:34 12/11/19 21:48 Heparin - IVPUSH 1,000 unit PRN PRN Administration Heparin Heparin Sodium (Porcine) 5,000 unit 12/11/19 16:34 Heparin - IVPUSH PRN PRN Heparin Heparin Sodium/Dextrose 25,000 units in 500 mls @ 20 mls/hr 12/11/19 20:45 05:00 Heparin Infusion - IVPB 1,100 units/hr TITR RADHA 22 mls/hr Titration Protocol 1,000 UNITS/HR Sodium Chloride 250 mls @ 3,000 mls/hr 12/12/19 14:23 Normal Saline - IV 12/13/19 14:23 PRN PRN Hypotension during Dialysis Insulin Aspart 1 vial 12/11/19 22:00 12/12/19 11:40 Novolog Vial Sliding Scale - SQ 2 units ACHS RADHA Administration Protocol Metoprolol Succinate 25 mg 12/11/19 22:00 12/12/19 10:15 Toprol Xl - PO 25 mg BID RADHA Administration Ondansetron HCl 4 mg 12/11/19 16:47 Zofran Injection IVPUSH Q6H PRN NAUSEA AND/OR VOMITING Oxycodone HCl 20 mg 12/11/19 16:47 12/12/19 11:33 Roxicodone - PO 20 mg Q4H PRN Administration PAIN 4-6 Oxycodone HCl 5 mg 12/11/19 16:47 Roxicodone - PO 12/12/19 14:51 Q4H PRN PAIN LEVEL 1-5 Pantoprazole Sodium 40 mg 12/12/19 10:00 12/12/19 10:15 Protonix Iv IVPUSH 40 mg DAILY RADHA Administration Promethazine HCl 12.5 mg 12/11/19 16:47 Phenergan Injection - IVPB Q6H PRN NAUSEA-FOR RESCUE AFTER 15 MIN Rosuvastatin Calcium 20 mg 12/11/19 22:00 12/11/19 21:47 Crestor - PO 20 mg HS RADHA Administration Sodium Zirconium Cyclosilicate 10 gm 12/12/19 10:00 12/12/19 10:16 Lokelma PO 10 gm DAILY RADHA Administration Tamsulosin HCl 0.4 mg 12/12/19 08:30 12/12/19 07:32 Flomax - PO 0.4 mg DAILY@0830 RADHA Administration ASSESSMENT/PLAN: 69 PMH HFrEF CAD s/p CABG (03/17), ischemic cardiomyopathy (EF 30-35%), s/p PPM, 1st degree AV block, CKD stage III, CVA, COPD on home oxygen 4L who presents today with worsening renal function and requirement for regular dialysis. ESRD electrolytes and fluid status stable, scheduled for HD tomorrow Nephrology consult: Dr Mango Anderson perm-a-cath placed for access, patient awaiting outpatient placement in HD center Anemia of chronic disease Hx of UGIB FOBT negative Protonix 40 mg Daily GI consulted, appreciate recs Iron studies, low iron normal ferritin ,folate and vitamin B12 normal Monitor H/H daily T2Dm ISS, basal insulin PRN DM diet Hx of Afib, S CHF, ischemic cardiomypoathy , CABG HLD cont statin Continue metropolol INR is therpeautic Started on Heparin Drip, cont Avoid NSAIDS S/P PPM due to Mobitz I 2nd degree AV block , stable , monitor in tele Hx of chronic pain Lyrica daily, Oxycodone for severe breakthrough pain COPD not in acute exacerbation Duonebs PRN NC O2 as needed to keep O2 >92% H/o CVA ASA/Warfarin held in view of GIB restart when clinically appropriate Acute meatbolic encephalopathy due to uremia due to CKD Resolved. Dispo: DC Tele pending HD placement
--- NOTE | 2019-12-12 16:27 | PN.GI ---
GI Progress Note Subjective: No focal complaints had HD last night No overt bleeding Irregular appearing GB wall and dilated CBD noted on previous abd US No abdominal pain. - Objective Vital Signs: Vital Signs Temperature 99.1 F 12/12/19 14:00 Pulse Rate 68 12/12/19 14:00 Respiratory Rate 20 12/12/19 14:00 Blood Pressure 164/77 12/12/19 14:00 O2 Sat by Pulse Oximetry (%) 100 12/12/19 09:00 Constitutional: Calm Eyes: No: Sclera Icterus Cardiovascular: Yes: Regular Rate and Rhythm Respiratory: Yes: CTA Bilaterally Gastrointestinal Inspection: No: Distention ...Auscultate: Yes: Normoactive Bowel Sounds ...Percussion: No: Tympanitic Edema: No (No LE edema) Neurological: Yes: Alert Labs: CBC, BMP 12/12/19 06:05 12/12/19 06:05 INR, PTT INR 2.95 (0.83-1.09) H 12/10/19 06:00 Hepatic Panel Total Bilirubin 0.2 mg/dL (0.2-1) 12/12/19 06:05 AST 10 U/L (15-37) L 12/12/19 06:05 ALT 15 U/L (13-61) 12/12/19 06:05 Alkaline Phosphatase 152 U/L (45-117) H 12/12/19 06:05 Albumin 2.5 g/dl (3.4-5.0) L 12/12/19 06:05 Laboratory Tests 01/08/19 06:48 GGT 89 H Problem List - Problems (1) Anemia Assessment/Plan: No overt bleeding Discussed EGD / colonoscopy with Mr. Scott to evaluate for GI source of blood loss. He has deferred these procedures at this time. Code(s): D64.9 - ANEMIA, UNSPECIFIED (2) Abnormal findings on diagnostic imaging of gallbladder Assessment/Plan: Abnormal gallbladder and CBD noted on previous abdominal US. If PPM is compatible, idealli should have MRI/MRCP performed. If this is not feasible, CT scan of the abdomen with and without IV contrast. Ultimately may need EUS to evaluate further if he would be amenable to this. Code(s): R93.2 - ABNORMAL FINDINGS ON DX IMAGING OF LIVER AND BILIARY TRACT
[2019-12-12 19:06] LABS: HEP B CORE AB, TOT Negative (Negative)
[2019-12-12] MEDS: ROSUVASTATIN CA 20 MG TABLET (FP) PO SCH (22:10)
[2019-12-12] MEDS: HEPARIN INFUSION - 25,000 UNITS/500 ML INFUS.BAG IVPB SCH (22:12)
[2019-12-13] MEDS: POLYETHYLENE GLYCOL 3350 119 GM BTL PO SCH ×3 (00:25→23:23)
[2019-12-13] MEDS: DOCUSATE SODIUM 100 MG CAPSULE (FP) PO SCH ×3 (00:25→23:20)
[2019-12-13] MEDS: oxyCODONE HCL 5 MG TABLET PO PRN ×5 (00:27→23:29)
[2019-12-13] MEDS: INSULIN SLIDING SCALE (NOVOLOG) 1 VIAL SQ SCH ×5 (06:21→23:23)
--- NOTE | 2019-12-13 06:26 | PN ---
Physical Exam: SUBJECTIVE: Patient seen and examined at bed side , no acute events over night denies any fever, chills, N/V/D/C, S/P perm cath right upper chest less shaky , tolerating diet need HD placement per nephro start on warfarin 5 mg daily , goal INR 2-3 hold ASA refuse GI work up OBJECTIVE: Vital Signs Period Temp Pulse Resp BP Sys/Cahndra Pulse Ox Last 24 Hr 97.4 F-99.1 F 58-68 17-20 108-166/67-77 96-100 GENERAL: awake alert in AND , right upper chest perm cath HEAD: NC/AT EYES: EOMI, Conjunctiva clear, sclera anicteric ENT: moist mucous membrane NECK: Supple, no JVD LUNGS: CTA B/L , right upper chest perm cath HEART: RRR, NSR, normal s1, s2, murmur no M/R/G, Med surgical scr CABG ABDOMEN: Soft, ND, NT, +BS 4 Q, no CVA Tenderness LOWER EXTREMITIES: no edema, +2DP pulse, NEUROLOGICAL: No focal deficit. Normal speech. gait not observed. PSYCHIATRIC: Cooperative. Good eye contact. Appropriate mood and affect. SKIN: Warm, dry, Laboratory Results - last 24 hr 12/10/19 12/12/19 12/12/19 21:05 06:05 06:05 WBC 8.5 RBC 2.90 L Hgb 8.0 L Hct 24.6 L MCV 84.6 MCH 27.5 MCHC 32.5 RDW 16.1 H Plt Count 270 MPV 8.7 Absolute Neuts (auto) 7.5 Neutrophils % 87.4 H Neutrophils % (Manual) 83.0 H Band Neutrophils % 0.0 Lymphocytes % 4.7 L D Lymphocytes % (Manual) 4.0 L D Monocytes % 6.1 Monocytes % (Manual) 8 Eosinophils % 0.4 Eosinophils % (Manual) 1.0 D Basophils % 1.4 Basophils % (Manual) 2.0 D Myelocytes % (Man) 2 D Promyelocytes % (Man) 0 Blast Cells % (Manual) 0 Nucleated RBC % 0 Metamyelocytes 0 Hypochromia 0 Platelet Estimate Normal Polychromasia 0 Poikilocytosis 1+ Basophilic Stippling 1+ Anisocytosis 1+ Microcytosis 1+ Macrocytosis 0 Ovalocytes 1+ Sodium 142 Potassium 4.4 Chloride 108 H Carbon Dioxide 27 Anion Gap 7 L BUN 56.6 H Creatinine 2.1 H Est GFR (CKD-EPI)AfAm 35.63 Est GFR (CKD-EPI)NonAf 30.74 POC Glucometer Random Glucose 117 H Calcium 7.7 L Phosphorus 2.9 Total Bilirubin 0.2 AST 10 L ALT 15 Alkaline Phosphatase 152 H Total Protein 6.0 L Albumin 2.5 L Stool Occult Blood Hep A IgM Ab Confirm Negative Hepatitis A Ab Total Positive H Hep Bs Antigen Negative Hep Bs Antibody Non reactive Hep B Core Total Ab Negative Hep B Core IgM Ab Negative Hepatitis Be Antibody Negative Hepatitis Be Antigen Negative 12/12/19 12/12/19 12/12/19 11:37 16:37 22:09 WBC RBC Hgb Hct MCV MCH MCHC RDW Plt Count MPV Absolute Neuts (auto) Neutrophils % Neutrophils % (Manual) Band Neutrophils % Lymphocytes % Lymphocytes % (Manual) Monocytes % Monocytes % (Manual) Eosinophils % Eosinophils % (Manual) Basophils % Basophils % (Manual) Myelocytes % (Man) Promyelocytes % (Man) Blast Cells % (Manual) Nucleated RBC % Metamyelocytes Hypochromia Platelet Estimate Polychromasia Poikilocytosis Basophilic Stippling Anisocytosis Microcytosis Macrocytosis Ovalocytes Sodium Potassium Chloride Carbon Dioxide Anion Gap BUN Creatinine Est GFR (CKD-EPI)AfAm Est GFR (CKD-EPI)NonAf POC Glucometer 181 118 122 Random Glucose Calcium Phosphorus Total Bilirubin AST ALT Alkaline Phosphatase Total Protein Albumin Stool Occult Blood Hep A IgM Ab Confirm Hepatitis A Ab Total Hep Bs Antigen Hep Bs Antibody Hep B Core Total Ab Hep B Core IgM Ab Hepatitis Be Antibody Hepatitis Be Antigen 12/12/19 12/13/19 23:40 05:48 WBC RBC Hgb Hct MCV MCH MCHC RDW Plt Count MPV Absolute Neuts (auto) Neutrophils % Neutrophils % (Manual) Band Neutrophils % Lymphocytes % Lymphocytes % (Manual) Monocytes % Monocytes % (Manual) Eosinophils % Eosinophils % (Manual) Basophils % Basophils % (Manual) Myelocytes % (Man) Promyelocytes % (Man) Blast Cells % (Manual) Nucleated RBC % Metamyelocytes Hypochromia Platelet Estimate Polychromasia Poikilocytosis Basophilic Stippling Anisocytosis Microcytosis Macrocytosis Ovalocytes Sodium Potassium Chloride Carbon Dioxide Anion Gap BUN Creatinine Est GFR (CKD-EPI)AfAm Est GFR (CKD-EPI)NonAf POC Glucometer 122 Random Glucose Calcium Phosphorus Total Bilirubin AST ALT Alkaline Phosphatase Total Protein Albumin Stool Occult Blood Negative Hep A IgM Ab Confirm Hepatitis A Ab Total Hep Bs Antigen Hep Bs Antibody Hep B Core Total Ab Hep B Core IgM Ab Hepatitis Be Antibody Hepatitis Be Antigen Active Medications Generic Name Dose Route Start Last Admin Trade Name Freq PRN Reason Stop Dose Admin Docusate Sodium 100 mg 12/12/19 23:15 12/13/19 00:25 Colace - PO Not Given BID RADHA Fentanyl 25 mcg 12/11/19 16:47 Sublimaze Injection - IVPUSH [id number] PRN PAIN-PACU ORDER X 4 DOSES ONLY Heparin Sodium (Porcine) 5,000 unit 12/11/19 20:29 Heparin - IVPUSH PRN PRN Heparin Heparin Sodium (Porcine) 1,000 unit 12/11/19 16:34 12/11/19 21:48 Heparin - IVPUSH 1,000 unit PRN PRN Administration Heparin Heparin Sodium (Porcine) 5,000 unit 12/11/19 16:34 Heparin - IVPUSH PRN PRN Heparin Heparin Sodium/Dextrose 25,000 units in 500 mls @ 20 mls/hr 12/11/19 20:45 22:12 Heparin Infusion - IVPB 1,100 units/hr TITR RADHA 22 mls/hr Administration Protocol 1,000 UNITS/HR Sodium Chloride 250 mls @ 3,000 mls/hr 12/12/19 14:23 Normal Saline - IV 12/13/19 14:23 PRN PRN Hypotension during Dialysis Insulin Aspart 1 vial 12/11/19 22:00 12/13/19 06:21 Novolog Vial Sliding Scale - SQ Not Given ACHS [facility] Protocol Metoprolol Succinate 25 mg 12/11/19 22:00 12/12/19 22:10 Toprol Xl - PO 25 mg BID RADHA Administration Ondansetron HCl 4 mg 12/11/19 16:47 Zofran Injection IVPUSH Q6H PRN NAUSEA AND/OR VOMITING Oxycodone HCl 20 mg 12/11/19 16:47 12/13/19 05:51 Roxicodone - PO 20 mg Q4H PRN Administration PAIN 4-6 Oxycodone HCl 5 mg 12/11/19 16:47 Roxicodone - PO 12/12/19 14:51 Q4H PRN PAIN LEVEL 1-5 Pantoprazole Sodium 40 mg 12/12/19 10:00 12/12/19 10:15 Protonix Iv IVPUSH 40 mg DAILY RADHA Administration Polyethylene Glycol 17 gm 12/12/19 23:15 12/13/19 00:25 Miralax (For Daily Use) - PO Not Given BID RADHA Promethazine HCl 12.5 mg 12/11/19 16:47 Phenergan Injection - IVPB Q6H PRN NAUSEA-FOR RESCUE AFTER 15 MIN Rosuvastatin Calcium 20 mg 12/11/19 22:00 12/12/19 22:10 Crestor - PO 20 mg HS RADHA Administration Sodium Zirconium Cyclosilicate 10 gm 12/12/19 10:00 12/12/19 10:16 Lokelma PO 10 gm DAILY RADHA Administration Tamsulosin HCl 0.4 mg 12/12/19 08:30 12/12/19 07:32 Flomax - PO 0.4 mg DAILY@0830 RADHA Administration CBC, BMP 12/13/19 07:00 12/13/19 09:55 ASSESSMENT/PLAN: 69 PMH HfrEF CAD s/p CABG (03/17), ischemic cardiomyopathy (EF 30-35%), s/p PPM, 1st degree AV block, CKD stage III, CVA, COPD on home oxygen 4L who presents today with worsening renal function and requirement for regular dialysis. # ESRD # hyperkalemia ,resolved * last dialysis was 12/03/2019 according to . * Lokelma 10, Insulin 10, D50 1 am, and Calcium gluconate 1 gram given * Lasix 80 mg and 40 total of 120 * Bicarb 650 mg PO Daily. * Nephrology consulted, appreciate recs, S/P HD * Vascular surgery consulted for permacath placement. Type and Screen, PT/INR, #normocytic normochromic Anemia possibly 2/2 to UGIB * Hx of UGIB * FOBT ordered, pending * Protonix 40 mg Daily * GI consulted, appreciate recs * Iron studies, low iron normal ferritin ,folate and vitamin B12 normal * Monitor H/H daily * hold warfarin for procedure tomorrow can cont heparin #Hx of DM II * ISS * BGM ACHS #Hx of Afib, S CHF, ischemic cardiomypoathy , CABG # HLD cont statin * re start Warfarin goal INR 2-3 , cont to hols ASA per cardiology Dr Davis * Continue metropolol * INR goal 2-3 * dc hep drip when INR is theraputic * Avoid NSAIDS # S/P PPM due to Mobitz I 2nd degree AV block , stable , monitor in tele Hx of chronic pain -Continuing home dose of oxycodone 20 mg PRN Q4H -Continue lyrica 50 mg PO BID # Hx of COPD * Duonebs PRN * 4L NC # H/O CVA cont warfarin for now ,cont to hold ASA for GI bleed # Acute meatbolic encephalopathy due to uremia due to CKD # FEN F: No IV fluids E: monitor lytes N: renal diet Dispo: tele monitor pending HD placement Visit type - Emergency Visit Emergency Visit: Yes ED Registration Date: 12/09/19 Care time: The patient presented to the Emergency Department on the above date and was hospitalized for further evaluation of their emergent condition. - New Patient This patient is new to me today: No - Critical Care Critical Care patient: No - Discharge Referral Referred to [facility] Med P.C.: No ATTENDING PHYSICIAN STATEMENT I saw and evaluated the patient. I reviewed the resident's note and discussed the case with the resident. I agree with the resident's findings and plan as documented. SUBJECTIVE: OBJECTIVE: ASSESSMENT AND PLAN:
[2019-12-13 07:43] LABS: BASO % 1.2 % (0-2.0); EOS % 0.3 % (0-4.5); HEMATOCRIT 24.9 % (35.4-49); HEMOGLOBIN 8.2 GM/dL (11.7-16.9); LYMPH % 4.7 % (8-40); MCH 28.1 pg (25.7-33.7); MCHC 32.9 g/dl (32.0-35.9); MEAN CELL VOLUME 85.3 fl (80-96); MEAN PLT VOLUME 8.6 fl (7.5-11.1); MONO % 7.8 % (3.8-10.2); PLATELET COUNT 239 K/MM3 (134-434); RBC 2.92 M/mm3 (4.00-5.60); RDW 15.7 % (11.9-15.9); WHITE BLOOD COUNT 9.5 K/mm3 (4.0-10.0)
[2019-12-13] MEDS: HEPARIN INFUSION - 25,000 UNITS/500 ML INFUS.BAG IVPB SCH (07:55)
[2019-12-13 08:41] LABS: ALBUMIN 2.5 g/dl (3.4-5.0); BILIRUBIN,TOTAL 0.5 mg/dL (0.2-1); BLOOD UREA NITROGEN 53.1 mg/dL (7-18); CALCIUM 7.9 mg/dL (8.5-10.1); CREATININE 2.1 mg/dL (0.55-1.3); MAGNESIUM 1.5 mg/dL (1.8-2.4); PHOSPHOROUS 2.6 mg/dL (2.5-4.9); POTASSIUM 4.1 mmol/L (3.5-5.1)
--- NOTE | 2019-12-13 08:58 | PN ---
Progress Note, Physician Chief Complaint: No CP, SOB, palps TELE: Paced, no sig arrhythmias noted. Receiving HD - Current Medication List Current Medications: Active Medications Docusate Sodium (Colace -) 100 mg PO BID [facility] Last Admin: 12/13/19 00:25 Dose: Not Given Fentanyl (Sublimaze Injection -) 25 mcg IVPUSH [id number] PRN PRN Reason: PAIN-PACU ORDER X 4 DOSES ONLY Heparin Sodium (Porcine) (Heparin -) 5,000 unit IVPUSH PRN PRN PRN Reason: Heparin Heparin Sodium (Porcine) (Heparin -) 1,000 unit IVPUSH PRN PRN PRN Reason: Heparin Last Admin: 12/11/19 21:48 Dose: 1,000 unit Heparin Sodium (Porcine) (Heparin -) 5,000 unit IVPUSH PRN PRN PRN Reason: Heparin Heparin Sodium/Dextrose (Heparin Infusion -) 25,000 units in 500 mls @ 20 mls/ hr IVPB TITR [facility]; Protocol Last Admin: 12/13/19 07:55 Dose: 1,200 units/hr, 24 mls/hr Sodium Chloride (Normal Saline -) 250 mls @ 3,000 mls/hr IV PRN PRN PRN Reason: Hypotension during Dialysis Stop: 12/13/19 14:23 Insulin Aspart (Novolog Vial Sliding Scale -) 1 vial SQ ACHS [facility]; Protocol Last Admin: 12/13/19 06:21 Dose: Not Given Metoprolol Succinate (Toprol Xl -) 25 mg PO BID [facility] Last Admin: 12/12/19 22:10 Dose: 25 mg Ondansetron HCl (Zofran Injection) 4 mg IVPUSH Q6H PRN PRN Reason: NAUSEA AND/OR VOMITING Oxycodone HCl (Roxicodone -) 20 mg PO Q4H PRN PRN Reason: PAIN 4-6 Last Admin: 12/13/19 05:51 Dose: 20 mg Oxycodone HCl (Roxicodone -) 5 mg PO Q4H PRN PRN Reason: PAIN LEVEL 1-5 Stop: 12/12/19 14:51 Pantoprazole Sodium (Protonix Iv) 40 mg IVPUSH DAILY [facility] Last Admin: 12/12/19 10:15 Dose: 40 mg Polyethylene Glycol (Miralax (For Daily Use) -) 17 gm PO BID [facility] Last Admin: 12/13/19 00:25 Dose: Not Given Promethazine HCl (Phenergan Injection -) 12.5 mg IVPB Q6H PRN PRN Reason: NAUSEA-FOR RESCUE AFTER 15 MIN Rosuvastatin Calcium (Crestor -) 20 mg PO HS [facility] Last Admin: 12/12/19 22:10 Dose: 20 mg Sodium Zirconium Cyclosilicate (Lokelma) 10 gm PO DAILY [facility] Last Admin: 12/12/19 10:16 Dose: 10 gm Tamsulosin HCl (Flomax -) 0.4 mg PO DAILY@0830 [facility] Last Admin: 12/12/19 07:32 Dose: 0.4 mg - Objective Vital Signs: Vital Signs Temperature 98.1 F 12/13/19 06:50 Pulse Rate 60 12/13/19 06:55 Respiratory Rate 18 12/13/19 06:55 Blood Pressure 166/78 12/13/19 06:55 O2 Sat by Pulse Oximetry (%) 96 12/12/19 21:00 Constitutional: Yes: No Distress, Calm Cardiovascular: Yes: Regular Rate and Rhythm Respiratory: Yes: Other (clear anteriorly and laterally) Gastrointestinal: Yes: Soft (Nontender) Edema: No Peripheral Pulses WNL: Yes (right subclav HD catheter) Neurological: Yes: Alert, Oriented ...Motor Strength: WNL Labs: CBC, BMP 12/13/19 06:20 12/13/19 06:20 INR, PTT INR 2.95 (0.83-1.09) H 12/10/19 06:00 Laboratory Tests 12/12/19 12/13/19 12/13/19 23:40 06:20 06:20 WBC 9.5 Hgb 8.2 L Plt Count 239 PTT (Actin FS) 48.5 H Sodium Potassium Creatinine Stool Occult Blood Negative 12/13/19 06:20 WBC Hgb Plt Count PTT (Actin FS) Sodium 142 Potassium 4.1 Creatinine 2.1 H Stool Occult Blood - ....Imaging EKG: Image Reviewed Assessment/Plan DATA: [facility] 05/15: 70-80% mRCA (ISR), 70-80% RPDA (ISR); 70-80% mLAD; 80-90% pLCX (small vessel); 90-95% OM2 (large vessel); 80-90% prox Ramus (large vessel) ...nonobstructive dz of note [id number]% ostial RCA, 50-60% eccentric lesion OM1 (large vessel); EDP 30-->25 post-nitro EF 38% (diffuse WMAs) Syntax score 20 Echo 11/11/2019: Severe LV dysfunction, EF < 35%. Mild PHTN. AVS Lexiscan MPI 11/12/2019: Large fixed anterior wall, apical, distal septal and distal inferior wall scar. No ischemia, EF 31% a/p: 69M h/o dm, ckd (1.5-2), CVA 10/2014, CAD s/p STEMI and multiple pci's, s/p CABG 02/2019, s/p PPM, ischemic CM with systolic chf, COPD, extensive smoking history (quit 12/2016) here with tremor, alt mental status now started on HD. BRANT, hyperkalemia: - evaluated by renal here, s/p permacath for HD - volume management and HD per renal CAD: -2004 s/p PCI ([facility]) to 100% occl RPDA ([facility]) with patent prior RCA stents at that time, EF 50% then; -2011 s/p anterior STEMI 2011 with [place] [facility] x 2 to mid LAD then ([facility]); residual 80% prox D1 (large vessel), 95% mD1; 70%mRCA (pre and post prior stents), 70% dCFX; (also 40% RPDA; 60% pCFX; 40% mCFX;) EF then 37% with AK of apex/AL lindsey and AK of IW; -2016 s/p NSTEMI in setting of sepsis/PNA-->[facility] with 70-80% mRCA (ISR), 70-80% RPDA (ISR); 70-80% mLAD; 80-90% pLCX (small vessel); 90-95% OM2 (large vessel); 80-90% prox Ramus (large vessel), 30-50% ostial RCA, 50-60% eccentric lesion OM1 (large vessel); - NSTEMI 02/2019, now s/p CABG at [facility] - cont statin, bb - aspirin stopped for hx GI bleed alt mental status, toxic metabolic encephalopathy: - likely 2/2 uremia - improved anemia: - GI consulted, holding warfarin for now - monitor H/H -Guaiac negative. chronic syst CHF, ischemic cardiomyopathy: - cont metoprolol - no WENDY/ARB for BRANT, hyperkalemia - hydralazine stopped for pos antihistone antibodies - monitor daily weight, lytes, Cr HTN: - cont home meds Atrial fibrillation -[id number] score is high (including prior CVAs) and AC is warranted. however , recent GIB here w/drop in H/H and guaiac + stool that was not fully investigated with endoscopic evaluation ([facility] admit) as patient deemed high risk for scope and H/H stabilized then. -08/17 EGD from [facility] reviewed showing erosions felt to be bleeding culprit, rec' d avoidance of NSAIDs, PPI. ? h. pylori results, to be f/u'd and treated if indicated. -at last admission, GI disc'd options with pt and and they are presently deferring high-risk endoscopy, preferring instead to try re-challenge with AC with close monitoring. After discussions with patient, he wished to forego scopes and resume AC with warfarin and home draws using apex -ASA dc'ed to avoid incr bleeding risk - warfarin held here for permacath placement - cont heparin gtt for now, resume coumadin if no further procedures planned with goal INR 2-3 s/p PPM, hx mobitz I 2nd degree AVB: - stable function on EKG, tele - outpatient follow up HLD: - cont statin h/o CVA: -dx'd lacunar infarct 02/10 clinically then (slurred speech) -? acute CVA/TIA 11/13 - holding warfarin, as above Hemodynamically stable, ok to dc telemetry
[2019-12-13 09:14] LABS: HEMATOCRIT 24.4 % (35.4-49); HEMOGLOBIN 7.9 GM/dL (11.7-16.9); MCHC 32.6 g/dl (32.0-35.9); MEAN CELL VOLUME 85.7 fl (80-96); PLATELET COUNT 231 K/MM3 (134-434); RBC 2.84 M/mm3 (4.00-5.60); RDW 15.9 % (11.9-15.9); WHITE BLOOD COUNT 8.8 K/mm3 (4.0-10.0)
[2019-12-13] MEDS: metoPROLOL SUCCINATE 25 MG TAB.SR.24H (FP) PO SCH ×2 (10:57→23:20)
[2019-12-13] MEDS: TAMSULOSIN HCL 0.4 MG CAP PO SCH (10:57)
[2019-12-13] MEDS: PANTOPRAZOLE SODIUM 40 MG VIAL IVPUSH SCH (10:57)
[2019-12-13] MEDS: SODIUM ZIRCONIUM CYCLOSILICATE (LOKELMA) 5 GM PACKET PO SCH (10:58)
[2019-12-13 11:17] LABS: BLOOD UREA NITROGEN 15.4 mg/dL (7-18); CREATININE 0.8 mg/dL (0.55-1.3); MAGNESIUM 1.2 mg/dL (1.8-2.4)
[2019-12-13] MEDS ORDERED: MAGNESIUM SULF 50% (8.12 MEQ/2 ML-1 GM VIAL) IVPB ONE ×2 (11:22→15:25)
--- NOTE | 2019-12-13 12:32 | PN ---
Teaching Attending Note Name of Resident: Dwaine Mason ATTENDING PHYSICIAN STATEMENT I saw and evaluated the patient. I reviewed the resident's note and discussed the case with the resident. I agree with the resident's findings and plan as documented. Subjective: Patient seen and examined bedside. Refusing EGD/colonoscopy/EUS therefore no indication for MRCP/MRI/CT A/P, asking to go home. VS otherwise stable. Bridged to Coumadin will DC Heparin drip. Awaiting outpatient HD placement. Objective: GENERAL: awake alert NAD, asking to go home HEAD: NC/AT EYES: EOMI, Conjunctiva clear, sclera anicteric ENT: moist mucous membrane NECK: Supple, no JVD LUNGS: CTA B/L , right upper chest perm cath HEART: RRR, NSR, normal s1, s2, murmur no M/R/G, Med surgical scr CABG ABDOMEN: Soft, ND, NT, +BS 4 Q, no CVA Tenderness LOWER EXTREMITIES: no edema, +2DP pulse, NEUROLOGICAL: No focal deficit. Normal speech. gait not observed. PSYCHIATRIC: Cooperative. Good eye contact. Appropriate mood and affect. SKIN: Warm, dry Vital Signs - 24 hr 12/12/19 12/12/19 12/12/19 14:00 17:00 21:00 Temperature 99.1 F 98.4 F 97.4 F L Pulse Rate 68 63 58 L Respiratory 20 20 17 Rate Blood Pressure 164/77 154/73 108/67 O2 Sat by Pulse 96 Oximetry (%) 12/13/19 12/13/19 12/13/19 01:00 05:00 06:50 Temperature 97.9 F 97.7 F 98.1 F Pulse Rate 60 61 66 Respiratory 18 18 18 Rate Blood Pressure 166/76 146/78 147/97 O2 Sat by Pulse Oximetry (%) 12/13/19 12/13/19 12/13/19 06:55 07:25 07:55 Temperature Pulse Rate 60 60 60 Respiratory 18 18 18 Rate Blood Pressure 166/78 165/80 154/84 O2 Sat by Pulse Oximetry (%) 12/13/19 12/13/19 12/13/19 08:25 08:55 09:25 Temperature Pulse Rate 60 60 60 Respiratory 18 18 18 Rate Blood Pressure 162/81 157/81 114/65 O2 Sat by Pulse Oximetry (%) 12/13/19 12/13/19 09:55 10:13 Temperature Pulse Rate 59 L 60 Respiratory 18 18 Rate Blood Pressure 164/86 156/79 O2 Sat by Pulse Oximetry (%) Laboratory Results - last 24 hr 12/10/19 12/12/19 12/12/19 21:05 16:37 22:09 WBC RBC Hgb Hct MCV MCH MCHC RDW Plt Count MPV Absolute Neuts (auto) Neutrophils % Lymphocytes % Monocytes % Eosinophils % Basophils % Nucleated RBC % PTT (Actin FS) Sodium Potassium Chloride Carbon Dioxide Anion Gap BUN Creatinine Est GFR (CKD-EPI)AfAm Est GFR (CKD-EPI)NonAf POC Glucometer 118 122 Random Glucose Calcium Phosphorus Magnesium Total Bilirubin AST ALT Alkaline Phosphatase Total Protein Albumin Stool Occult Blood Hep A IgM Ab Confirm Negative Hepatitis A Ab Total Positive H Hep Bs Antigen Negative Hep Bs Antibody Non reactive Hep B Core Total Ab Negative Hep B Core IgM Ab Negative Hepatitis Be Antibody Negative Hepatitis Be Antigen Negative HCV Quantitation Hcv not detected HCV RNA log copies/mL TNP 12/12/19 12/13/19 12/13/19 23:40 05:48 06:20 WBC RBC Hgb Hct MCV MCH MCHC RDW Plt Count MPV Absolute Neuts (auto) Neutrophils % Lymphocytes % Monocytes % Eosinophils % Basophils % Nucleated RBC % PTT (Actin FS) 48.5 H Sodium Potassium Chloride Carbon Dioxide Anion Gap BUN Creatinine Est GFR (CKD-EPI)AfAm Est GFR (CKD-EPI)NonAf POC Glucometer 122 Random Glucose Calcium Phosphorus Magnesium Total Bilirubin AST ALT Alkaline Phosphatase Total Protein Albumin Stool Occult Blood Negative Hep A IgM Ab Confirm Hepatitis A Ab Total Hep Bs Antigen Hep Bs Antibody Hep B Core Total Ab Hep B Core IgM Ab Hepatitis Be Antibody Hepatitis Be Antigen HCV Quantitation HCV RNA log copies/mL 12/13/19 12/13/19 12/13/19 06:20 06:20 07:00 WBC 9.5 8.8 RBC 2.92 L 2.84 L Hgb 8.2 L 7.9 L Hct 24.9 L 24.4 L MCV 85.3 85.7 MCH 28.1 28.0 MCHC 32.9 32.6 RDW 15.7 15.9 Plt Count 239 231 MPV 8.6 9.0 Absolute Neuts (auto) 8.2 H Neutrophils % 86.0 H Lymphocytes % 4.7 L Monocytes % 7.8 Eosinophils % 0.3 Basophils % 1.2 Nucleated RBC % 0 PTT (Actin FS) Sodium 142 Potassium 4.1 Chloride 108 H Carbon Dioxide 27 Anion Gap 6 L BUN 53.1 H Creatinine 2.1 H Est GFR (CKD-EPI)AfAm 35.63 Est GFR (CKD-EPI)NonAf 30.74 POC Glucometer Random Glucose 151 H Calcium 7.9 L Phosphorus 2.6 Magnesium 1.5 L Total Bilirubin 0.5 AST 9 L ALT 12 L Alkaline Phosphatase 149 H Total Protein 6.0 L Albumin 2.5 L Stool Occult Blood Hep A IgM Ab Confirm Hepatitis A Ab Total Hep Bs Antigen Hep Bs Antibody Hep B Core Total Ab Hep B Core IgM Ab Hepatitis Be Antibody Hepatitis Be Antigen HCV Quantitation HCV RNA log copies/mL 12/13/19 09:55 WBC RBC Hgb Hct MCV MCH MCHC RDW Plt Count MPV Absolute Neuts (auto) Neutrophils % Lymphocytes % Monocytes % Eosinophils % Basophils % Nucleated RBC % PTT (Actin FS) Sodium Potassium Chloride Carbon Dioxide Anion Gap BUN 15.4 Creatinine 0.8 Est GFR (CKD-EPI)AfAm 104.17 Est GFR (CKD-EPI)NonAf 89.88 POC Glucometer Random Glucose Calcium Phosphorus Magnesium 1.2 L Total Bilirubin AST ALT Alkaline Phosphatase Total Protein Albumin Stool Occult Blood Hep A IgM Ab Confirm Hepatitis A Ab Total Hep Bs Antigen Hep Bs Antibody Hep B Core Total Ab Hep B Core IgM Ab Hepatitis Be Antibody Hepatitis Be Antigen HCV Quantitation HCV RNA log copies/mL Current Medications Generic Name Dose Route Start Last Admin Trade Name Freq PRN Reason Stop Dose Admin Docusate Sodium 100 mg 12/12/19 23:15 12/13/19 10:57 Colace - PO 100 mg BID [facility] Administration Sodium Chloride 250 mls @ 3,000 mls/hr 12/12/19 14:23 Normal Saline - IV 12/13/19 14:23 PRN PRN Hypotension during Dialysis Insulin Aspart 1 vial 12/11/19 22:00 12/13/19 06:21 Novolog Vial Sliding Scale - SQ Not Given ACHS [facility] Protocol Metoprolol Succinate 25 mg 12/11/19 22:00 12/13/19 10:57 Toprol Xl - PO 25 mg BID [facility] Administration Ondansetron HCl 4 mg 12/11/19 16:47 Zofran Injection IVPUSH Q6H PRN NAUSEA AND/OR VOMITING Oxycodone HCl 20 mg 12/11/19 16:47 12/13/19 10:55 Roxicodone - PO 20 mg Q4H PRN Administration PAIN 4-6 Pantoprazole Sodium 40 mg 12/12/19 10:00 12/13/19 10:57 Protonix Iv IVPUSH 40 mg DAILY [facility] Administration Polyethylene Glycol 17 gm 12/12/19 23:15 12/13/19 10:58 Miralax (For Daily Use) - PO Not Given BID [facility] Promethazine HCl 12.5 mg 12/11/19 16:47 Phenergan Injection - IVPB Q6H PRN NAUSEA-FOR RESCUE AFTER 15 MIN Rosuvastatin Calcium 20 mg 12/11/19 22:00 12/12/19 22:10 Crestor - PO 20 mg HS [facility] Administration Sodium Zirconium Cyclosilicate 10 gm 12/12/19 10:00 12/13/19 10:58 Lokelma PO 10 gm DAILY [facility] Administration Tamsulosin HCl 0.4 mg 12/12/19 08:30 12/13/19 10:57 Flomax - PO 0.4 mg DAILY@0830 [facility] Administration Warfarin Sodium 5 mg 12/13/19 18:00 Coumadin - PO DAILY@1800 [facility] ASSESSMENT/PLAN: 69 PMH HFrEF CAD s/p CABG (03/17), ischemic cardiomyopathy (EF 30-35%), s/p PPM, 1st degree AV block, CKD stage III, CVA, COPD on home oxygen 4L who presents today with worsening renal function and requirement for regular dialysis. ESRD electrolytes and fluid status stable, received HD today via [facility] perm-a-cath patient awaiting outpatient placement in HD center, however medically cleared for discharge Nephrology consult: Dr Cobian Anemia of chronic disease Hx of UGIB FOBT negative Protonix 40 mg Daily GI consulted, appreciate recs Iron studies, low iron normal ferritin ,folate and vitamin B12 normal Monitor H/H daily T2Dm ISS, basal insulin PRN DM diet Hx of Afib, S CHF, ischemic cardiomypoathy , CABG HLD cont statin Continue metropolol Bridged to coumadin, DC heparin gtt Avoid NSAIDS S/P PPM due to Mobitz I 2nd degree AV block , stable , DC tele monitoring and downgrade Hx of chronic pain Lyrica daily, Oxycodone for severe breakthrough pain COPD not in acute exacerbation Duonebs PRN NC O2 as needed to keep O2 >92% H/o CVA ASA held in view of GIB restart when clinically appropriate Acute metabolic encephalopathy due to uremia due to CKD Resolved. Dispo: DC Tele and downgrade pending HD placement
[2019-12-13] MEDS ORDERED: MAGNESIUM OXIDE 400 MG TABLET (FP) PO ONE (14:31)
[2019-12-13] MEDS ORDERED: ONDANSETRON 4 MG/2 ML VIAL IVPUSH ONE (14:52)
[2019-12-13 15:04] LABS: INR 1.73 (0.83-1.09); PROTHROMBIN TIME (PATIENT) 20.5 SEC (9.7-13.0)
--- NOTE | 2019-12-13 15:28 | PN ---
Progress Note, Physician History of Present Illness: Pt seen and examined at bedside. He is awake and alert. He tolerated HD. - Current Medication List Current Medications: Active Medications Docusate Sodium (Colace -) 100 mg PO BID [facility] Last Admin: 12/13/19 10:57 Dose: 100 mg Sodium Chloride (Normal Saline -) 250 mls @ 3,000 mls/hr IV PRN PRN PRN Reason: Hypotension during Dialysis Stop: 12/13/19 14:23 Insulin Aspart (Novolog Vial Sliding Scale -) 1 vial SQ ACHS [facility]; Protocol Last Admin: 12/13/19 15:00 Dose: 4 units Magnesium Oxide (Mag-Ox -) 400 mg PO DAILY [facility] Metoprolol Succinate (Toprol Xl -) 25 mg PO BID [facility] Last Admin: 12/13/19 10:57 Dose: 25 mg Oxycodone HCl (Roxicodone -) 20 mg PO Q4H PRN PRN Reason: PAIN 4-6 Last Admin: 12/13/19 15:01 Dose: 20 mg Pantoprazole Sodium (Protonix Iv) 40 mg IVPUSH DAILY [facility] Last Admin: 12/13/19 10:57 Dose: 40 mg Polyethylene Glycol (Miralax (For Daily Use) -) 17 gm PO BID [facility] Last Admin: 12/13/19 10:58 Dose: Not Given Promethazine HCl (Phenergan Injection -) 12.5 mg IVPB Q6H PRN PRN Reason: NAUSEA-FOR RESCUE AFTER 15 MIN Rosuvastatin Calcium (Crestor -) 20 mg PO HS [facility] Last Admin: 12/12/19 22:10 Dose: 20 mg Sodium Zirconium Cyclosilicate (Lokelma) 10 gm PO DAILY [facility] Last Admin: 12/13/19 10:58 Dose: 10 gm Tamsulosin HCl (Flomax -) 0.4 mg PO DAILY@0830 [facility] Last Admin: 12/13/19 10:57 Dose: 0.4 mg Warfarin Sodium (Coumadin -) 5 mg PO DAILY@1800 [facility] - Objective Vital Signs: Vital Signs Temperature 98.1 F 12/13/19 06:50 Pulse Rate 60 12/13/19 10:13 Respiratory Rate 18 12/13/19 10:13 Blood Pressure 156/79 12/13/19 10:13 O2 Sat by Pulse Oximetry (%) 96 12/12/19 21:00 Constitutional: Yes: Calm Eyes: Yes: Conjunctiva Clear HENT: Yes: Atraumatic Neck: Yes: Supple Cardiovascular: Yes: S1, S2 Respiratory: Yes: CTA Bilaterally Gastrointestinal: Yes: Soft Genitourinary: Yes: WNL Musculoskeletal: Yes: WNL Edema: No Neurological: Yes: Oriented Psychiatric: Yes: Oriented Labs: CBC, BMP 12/13/19 07:00 12/13/19 09:55 INR, PTT INR 1.73 (0.83-1.09) H 12/13/19 13:45 Problem List - Problems (1) BRANT (acute kidney injury) Code(s): N17.9 - ACUTE KIDNEY FAILURE, UNSPECIFIED Assessment/Plan Current Medications Generic Name Dose Route Start Last Admin Trade Name Freq PRN Reason Stop Dose Admin Docusate Sodium 100 mg 12/12/19 23:15 12/13/19 10:57 Colace - PO 100 mg BID [facility] Administration Sodium Chloride 250 mls @ 3,000 mls/hr 12/12/19 14:23 Normal Saline - IV 12/13/19 14:23 PRN PRN Hypotension during Dialysis Insulin Aspart 1 vial 12/11/19 22:00 12/13/19 15:00 Novolog Vial Sliding Scale - SQ 4 units ACHS [facility] Administration Protocol Magnesium Oxide 400 mg 12/14/19 10:00 Mag-Ox - PO DAILY [facility] Magnesium Sulfate 1 gm 12/13/19 15:25 Magnesium Sulfate IVPB 12/13/19 15:26 ONCE ONE Metoprolol Succinate 25 mg 12/11/19 22:00 12/13/19 10:57 Toprol Xl - PO 25 mg BID [facility] Administration Oxycodone HCl 20 mg 12/11/19 16:47 12/13/19 15:01 Roxicodone - PO 20 mg Q4H PRN Administration PAIN 4-6 Pantoprazole Sodium 40 mg 12/12/19 10:00 12/13/19 10:57 Protonix Iv IVPUSH 40 mg DAILY [facility] Administration Polyethylene Glycol 17 gm 12/12/19 23:15 12/13/19 10:58 Miralax (For Daily Use) - PO Not Given BID [facility] Promethazine HCl 12.5 mg 12/11/19 16:47 Phenergan Injection - IVPB Q6H PRN NAUSEA-FOR RESCUE AFTER 15 MIN Rosuvastatin Calcium 20 mg 12/11/19 22:00 12/12/19 22:10 Crestor - PO 20 mg HS [facility] Administration Sodium Zirconium Cyclosilicate 10 gm 12/12/19 10:00 12/13/19 10:58 Lokelma PO 10 gm DAILY [facility] Administration Tamsulosin HCl 0.4 mg 12/12/19 08:30 12/13/19 10:57 Flomax - PO 0.4 mg DAILY@0830 [facility] Administration Warfarin Sodium 5 mg 12/13/19 18:00 Coumadin - PO DAILY@1800 [facility] Impression 1. CKD 2. hyperkalemia 3. copd 4. chf 5. uremia 6. fluid overload 7. cva 8. anemia 9. ESRD 10 positive anti-histone ab Plan - please d/c lokelma - replace magnesium - has HD set up as outpt - can replace anca as outpt - discussed plan with pt
[2019-12-13] MEDS ORDERED: MAGNESIUM OXIDE 400 MG TABLET (FP) PO SCH (15:29)
[2019-12-13 16:19] VITALS: BMI 26.6
[2019-12-13] MEDS ORDERED: WARFARIN NA 5 MG TABLET (UD) PO SCH (18:00)
[2019-12-13] MEDS ORDERED: WARFARIN NA 7.5 MG TABLET (FP) PO SCH (18:00)
[2019-12-13 18:31] LABS: INR 1.71 (0.83-1.09); PROTHROMBIN TIME (PATIENT) 20.3 SEC (9.7-13.0)
[2019-12-13 22:16] LABS: INR 1.67 (0.83-1.09); PROTHROMBIN TIME (PATIENT) 19.8 SEC (9.7-13.0)
[2019-12-13 22:19] LABS: ACTIVATED PTT 35.7 SECONDS (25.2-36.5)
[2019-12-13] MEDS: ROSUVASTATIN CA 20 MG TABLET (FP) PO SCH (23:20)
[2019-12-14] MEDS: oxyCODONE HCL 5 MG TABLET PO PRN ×2 (03:52→08:25)
[2019-12-14] MEDS: INSULIN SLIDING SCALE (NOVOLOG) 1 VIAL SQ SCH (06:36)
[2019-12-14 07:09] LABS: HEMATOCRIT 25.5 % (35.4-49); HEMOGLOBIN 8.4 GM/dL (11.7-16.9); MCH 28.2 pg (25.7-33.7); MCHC 32.9 g/dl (32.0-35.9); MEAN CELL VOLUME 85.6 fl (80-96); PLATELET COUNT 213 K/MM3 (134-434); RBC 2.98 M/mm3 (4.00-5.60); RDW 15.8 % (11.9-15.9); WHITE BLOOD COUNT 9.3 K/mm3 (4.0-10.0)
[2019-12-14 07:10] LABS: BASO % 0.9 % (0-2.0); EOS % 0.3 % (0-4.5); LYMPH % 5.8 % (8-40); MONO % 7.6 % (3.8-10.2); NEUT % 85.4 % (42.8-82.8)
[2019-12-14 07:31] LABS: INR 1.74 (0.83-1.09); PROTHROMBIN TIME (PATIENT) 20.7 SEC (9.7-13.0)
[2019-12-14 07:34] LABS: ACTIVATED PTT 35.6 SECONDS (25.2-36.5)
[2019-12-14 07:44] LABS: ALBUMIN 2.5 g/dl (3.4-5.0); BILIRUBIN,TOTAL 0.4 mg/dL (0.2-1); BLOOD UREA NITROGEN 21.6 mg/dL (7-18); CALCIUM 8.2 mg/dL (8.5-10.1); CREATININE 1.6 mg/dL (0.55-1.3); MAGNESIUM 1.8 mg/dL (1.8-2.4)
--- NOTE | 2019-12-14 08:07 | PN.GI ---
GI Progress Note - Objective Vital Signs: Vital Signs Temperature 98.5 F 12/14/19 05:00 Pulse Rate 61 12/14/19 05:00 Respiratory Rate 20 12/14/19 05:00 Blood Pressure 151/77 12/14/19 05:00 O2 Sat by Pulse Oximetry (%) 95 12/13/19 21:00 Labs: CBC, BMP 12/14/19 06:00 12/14/19 06:00 INR, PTT INR 1.74 (0.83-1.09) H 12/14/19 06:00
[2019-12-14] MEDS: TAMSULOSIN HCL 0.4 MG CAP PO SCH (08:26)
[2019-12-14] MEDS: metoPROLOL SUCCINATE 25 MG TAB.SR.24H (FP) PO SCH (09:02)
[2019-12-14] MEDS: DOCUSATE SODIUM 100 MG CAPSULE (FP) PO SCH (09:02)
[2019-12-14] MEDS ORDERED: ACETAMINOPHEN 325 MG TABLET (FP) ONE (09:02)
[2019-12-14] MEDS: POLYETHYLENE GLYCOL 3350 119 GM BTL PO SCH (09:02)
[2019-12-14] MEDS ORDERED: MAGNESIUM OXIDE 400 MG TABLET (FP) PO SCH (10:00)
[2019-12-14] MEDS: PANTOPRAZOLE SODIUM 40 MG VIAL IVPUSH SCH (10:23)
[2019-12-14 10:31] LABS: ANISOCYTOSIS 1+; MACROCYTOSIS 0; OVALOCYTE 1+; PLATELET ESTIMATE NORMAL; TOXIC GRANULATION 1+
[2019-12-14 11:53] VITALS: BP 147/69; PULSE 60; TEMP 98
--- NOTE | 2019-12-14 15:50 | DS ---
Physical Exam: SUBJECTIVE: Patient seen and examined at bedside this morning. no acute events overnight. Patient reports feeling well and has no complaints, and wants to go home. OBJECTIVE: Vital Signs Temperature 98 F 12/14/19 09:00 Pulse Rate 60 12/14/19 09:00 Respiratory Rate 20 12/14/19 09:00 Blood Pressure 147/69 12/14/19 09:00 O2 Sat by Pulse Oximetry (%) 95 12/14/19 09:00 PHYSICAL EXAM GENERAL: The patient is awake, alert, and fully oriented, in no acute distress. HEAD: Normal with no signs of trauma. EYES: PERRLA, EOMI, sclera anicteric, conjunctiva clear. ENT:moist mucous membranes. NECK: Trachea midline, full range of motion, supple. LUNGS: Breath sounds equal, clear to auscultation bilaterally. right upper chest perm cath HEART: Regular rate and rhythm, S1, S2 without murmur, rub or gallop. ABDOMEN: Soft, nontender, nondistended, normoactive bowel sounds. EXTREMITIES: 2+ pulses, warm, well-perfused, no edema. NEUROLOGICAL: Cranial nerves II through XII grossly intact. Normal speech, gait not observed. PSYCH: Normal mood, normal affect. SKIN: Warm, dry, normal turgor. LABS Laboratory Results - last 24 hr 12/13/19 12/13/19 12/13/19 07:00 14:41 17:45 WBC RBC Hgb Hct MCV MCH MCHC RDW Plt Count MPV Absolute Neuts (auto) Neutrophils % Neutrophils % (Manual) Band Neutrophils % Lymphocytes % Lymphocytes % (Manual) Monocytes % Monocytes % (Manual) Eosinophils % Eosinophils % (Manual) Basophils % Basophils % (Manual) Myelocytes % (Man) Promyelocytes % (Man) Blast Cells % (Manual) Nucleated RBC % Metamyelocytes Hypochromia Toxic Granulation Platelet Estimate Platelet Comment Polychromasia Poikilocytosis Basophilic Stippling Anisocytosis Microcytosis Macrocytosis Ovalocytes Stomatocytes PT with INR 20.30 H INR 1.71 H PTT (Actin FS) Sodium Potassium Chloride Carbon Dioxide Anion Gap BUN Creatinine Est GFR (CKD-EPI)AfAm Est GFR (CKD-EPI)NonAf POC Glucometer 224 Random Glucose Calcium Magnesium Total Bilirubin AST ALT Alkaline Phosphatase Total Protein Albumin Hep C Ab Diagnostic <0.1 12/13/19 12/13/1912/14/20 21:35 23:22 06:00 WBC 9.3 RBC 2.98 L Hgb 8.4 L Hct 25.5 L MCV 85.6 MCH 28.2 MCHC 32.9 RDW 15.8 Plt Count 213 MPV 9.0 Absolute Neuts (auto) 8.0 Neutrophils % 85.4 H Neutrophils % (Manual) 77.8 Band Neutrophils % 1.0 Lymphocytes % 5.8 L D Lymphocytes % (Manual) 3.0 L D Monocytes % 7.6 Monocytes % (Manual) 12 H Eosinophils % 0.3 Eosinophils % (Manual) 0.0 D Basophils % 0.9 Basophils % (Manual) 1.0 Myelocytes % (Man) 4 H D Promyelocytes % (Man) 0 Blast Cells % (Manual) 0 Nucleated RBC % 0 Metamyelocytes 0 Hypochromia 0 Toxic Granulation 1+ Platelet Estimate Normal Platelet Comment Present Polychromasia 1+ Poikilocytosis 1+ Basophilic Stippling 1+ Anisocytosis 1+ Microcytosis 1+ Macrocytosis 0 Ovalocytes 1+ Stomatocytes 1+ PT with INR 19.80 H INR 1.67 H PTT (Actin FS) 35.7 Sodium Potassium Chloride Carbon Dioxide Anion Gap BUN Creatinine Est GFR (CKD-EPI)AfAm Est GFR (CKD-EPI)NonAf POC Glucometer 127 Random Glucose Calcium Magnesium Total Bilirubin AST ALT Alkaline Phosphatase Total Protein Albumin Hep C Ab Diagnostic 12/14/19 12/14/19 12/14/19 06:00 06:00 06:32 WBC RBC Hgb Hct MCV MCH MCHC RDW Plt Count MPV Absolute Neuts (auto) Neutrophils % Neutrophils % (Manual) Band Neutrophils % Lymphocytes % Lymphocytes % (Manual) Monocytes % Monocytes % (Manual) Eosinophils % Eosinophils % (Manual) Basophils % Basophils % (Manual) Myelocytes % (Man) Promyelocytes % (Man) Blast Cells % (Manual) Nucleated RBC % Metamyelocytes Hypochromia Toxic Granulation Platelet Estimate Platelet Comment Polychromasia Poikilocytosis Basophilic Stippling Anisocytosis Microcytosis Macrocytosis Ovalocytes Stomatocytes PT with INR 20.70 H INR 1.74 H PTT (Actin FS) 35.6 Sodium 140 Potassium 4.0 Chloride 104 Carbon Dioxide 32 Anion Gap 4 L BUN 21.6 H Creatinine 1.6 H Est GFR (CKD-EPI)AfAm 49.50 Est GFR (CKD-EPI)NonAf 42.71 POC Glucometer 142 Random Glucose 150 H Calcium 8.2 L Magnesium 1.8 Total Bilirubin 0.4 AST 13 L ALT 13 Alkaline Phosphatase 143 H Total Protein 6.0 L Albumin 2.5 L Hep C Ab Diagnostic HOSPITAL COURSE: Date of Admission:12/09/19 Date of Discharge: 12/14/19 Patient is a 69 yo male with PMHs of HFrEF CAD s/p CABG (03/17), ischemic cardiomyopathy (EF 30-35%), s/p PPM, 1st degree AV block, CKD stage III, CVA, COPD on home oxygen 4L who was admitted due to worsening renal function and requirement for regular dialysis. Patient was seen by nephrology, RUE Permacath was placed and patient was started on dialysis. Patient was also noted to be anemic and was evaluated by GI and was offered EGD/Colonoscopy for further work up, to which patient deferred for now. Patient was discharged with instructions for outpatient dialysis. Minutes to complete discharge: 35 Discharge Summary Problems reviewed: Yes Reason For Visit: CHRONIC KIDNEY DISEASE,RENAL FAILURE,HYPERKALEMIA Condition: Good - Instructions Diet, Activity, Other Instructions: Your Visit You were admitted to the hospital because of kidney failure which required you to have dialysis. You will continue your dialysis sessions at [facility] starting this Monday (12/16/18) at 6:25am. You will continue your Coumadin (blood thinner) at 5mg daily. Please follow up with your primary care doctor in 3 days for lab work to have your INR checked, which should be between 2-3. Medications Please continue your home medications as prescribed. Follow ups Please follow up with your primary care doctor (Dr. Isbell) in 3 days. You will need to have your INR checked. Please follow up with the kidney doctor (Dr. Cobian) in 1 week. Additional info Please call 911 or go to the ED if with any worsening fever, chills, headache, chest pain, shortness of breath, or any new concerns noted. It is very IMPORTANT that you follow up with your kidney doctor (Dr. Cobian in 1 week) and follow up with your hemodialysis appointment on Monday (12/16/18) at [facility] on [address] [place] [address]. Referrals: Ramos Cobian MD [Staff Physician] - Vin Isbell MD [Primary Care Provider] - Disposition: HOME - Home Medications Comprehensive Discharge Medication List: Ambulatory Orders Rosuvastatin [Crestor -] 20 mg PO DAILY 04/15/19 Tamsulosin HCl [Flomax -] 0.4 mg PO DAILY 04/15/19 Metoprolol Succinate [Toprol XL -] 25 mg PO BID #60 tab.sr.24h 04/18/19 Pantoprazole Sodium 40 mg PO DAILY 11/09/19 Warfarin Na [Coumadin -] 5 mg PO DAILY@1800 #30 tablet 12/02/19 Docusate Sodium [Colace -] 100 mg PO BID capsule 12/14/19 Warfarin Na [Coumadin -] 5 mg PO DAILY@1800 #30 tablet 12/14/19 This patient is new to me today: Yes Date on this admission: 12/14/19 Emergency Visit: Yes ED Registration Date: 12/09/19 Care time: The patient presented to the Emergency Department on the above date and was hospitalized for further evaluation of their emergent condition. Critical Care patient: No - Discharge Referral Referred to [facility] No ATTENDING PHYSICIAN STATEMENT I saw and evaluated the patient. I reviewed the resident's note and discussed the case with the resident. I agree with the resident's findings and plan as documented. SUBJECTIVE: OBJECTIVE: ASSESSMENT AND PLAN:
--- NOTE | 2019-12-14 17:22 | PN ---
Teaching Attending Note Name of Resident: China Reis ATTENDING PHYSICIAN STATEMENT I saw and evaluated the patient. I reviewed the resident's note and discussed the case with the resident. I agree with the resident's findings and plan as documented. SUBJECTIVE: No complaints. OBJECTIVE: Vital Signs Period Temp Pulse Resp BP Sys/Chandra Pulse Ox Last 24 Hr 97.5 F-98.5 F 60-61 18-20 147-151/69-77 95-95 HEART: S1S2, RRR LUNGS: Clear ABDOMEN: Soft, non-tender, non-distended, normal BS EXTREMITIES: No edema Laboratory Results - last 24 hr 12/13/19 12/13/19 12/13/19 07:00 14:41 17:45 WBC RBC Hgb Hct MCV MCH MCHC RDW Plt Count MPV Absolute Neuts (auto) Neutrophils % Neutrophils % (Manual) Band Neutrophils % Lymphocytes % Lymphocytes % (Manual) Monocytes % Monocytes % (Manual) Eosinophils % Eosinophils % (Manual) Basophils % Basophils % (Manual) Myelocytes % (Man) Promyelocytes % (Man) Blast Cells % (Manual) Nucleated RBC % Metamyelocytes Hypochromia Toxic Granulation Platelet Estimate Platelet Comment Polychromasia Poikilocytosis Basophilic Stippling Anisocytosis Microcytosis Macrocytosis Ovalocytes Stomatocytes PT with INR 20.30 H INR 1.71 H PTT (Actin FS) Sodium Potassium Chloride Carbon Dioxide Anion Gap BUN Creatinine Est GFR (CKD-EPI)AfAm Est GFR (CKD-EPI)NonAf POC Glucometer 224 Random Glucose Calcium Magnesium Total Bilirubin AST ALT Alkaline Phosphatase Total Protein Albumin Hep C Ab Diagnostic <0.1 12/13/19 12/13/19 12/14/19 21:35 23:22 06:00 WBC 9.3 RBC 2.98 L Hgb 8.4 L Hct 25.5 L MCV 85.6 MCH 28.2 MCHC 32.9 RDW 15.8 Plt Count 213 MPV 9.0 Absolute Neuts (auto) 8.0 Neutrophils % 85.4 H Neutrophils % (Manual) 77.8 Band Neutrophils % 1.0 Lymphocytes % 5.8 L D Lymphocytes % (Manual) 3.0 L D Monocytes % 7.6 Monocytes % (Manual) 12 H Eosinophils % 0.3 Eosinophils % (Manual) 0.0 D Basophils % 0.9 Basophils % (Manual) 1.0 Myelocytes % (Man) 4 H D Promyelocytes % (Man) 0 Blast Cells % (Manual) 0 Nucleated RBC % 0 Metamyelocytes 0 Hypochromia 0 Toxic Granulation 1+ Platelet Estimate Normal Platelet Comment Present Polychromasia 1+ Poikilocytosis 1+ Basophilic Stippling 1+ Anisocytosis 1+ Microcytosis 1+ Macrocytosis 0 Ovalocytes 1+ Stomatocytes 1+ PT with INR 19.80 H INR 1.67 H PTT (Actin FS) 35.7 Sodium Potassium Chloride Carbon Dioxide Anion Gap BUN Creatinine Est GFR (CKD-EPI)AfAm Est GFR (CKD-EPI)NonAf POC Glucometer 127 Random Glucose Calcium Magnesium Total Bilirubin AST ALT Alkaline Phosphatase Total Protein Albumin Hep C Ab Diagnostic 12/14/19 12/14/19 12/14/19 06:00 06:00 06:32 WBC RBC Hgb Hct MCV MCH MCHC RDW Plt Count MPV Absolute Neuts (auto) Neutrophils % Neutrophils % (Manual) Band Neutrophils % Lymphocytes % Lymphocytes % (Manual) Monocytes % Monocytes % (Manual) Eosinophils % Eosinophils % (Manual) Basophils % Basophils % (Manual) Myelocytes % (Man) Promyelocytes % (Man) Blast Cells % (Manual) Nucleated RBC % Metamyelocytes Hypochromia Toxic Granulation Platelet Estimate Platelet Comment Polychromasia Poikilocytosis Basophilic Stippling Anisocytosis Microcytosis Macrocytosis Ovalocytes Stomatocytes PT with INR 20.70 H INR 1.74 H PTT (Actin FS) 35.6 Sodium 140 Potassium 4.0 Chloride 104 Carbon Dioxide 32 Anion Gap 4 L BUN 21.6 H Creatinine 1.6 H Est GFR (CKD-EPI)AfAm 49.50 Est GFR (CKD-EPI)NonAf 42.71 POC Glucometer 142 Random Glucose 150 H Calcium 8.2 L Magnesium 1.8 Total Bilirubin 0.4 AST 13 L ALT 13 Alkaline Phosphatase 143 H Total Protein 6.0 L Albumin 2.5 L Hep C Ab Diagnostic ASSESSMENT AND PLAN: This is a 69 year old man with a history of ischemic CM, CAD, CABG, HTN, hyperlipidemia, a fib, stage 4 CKD, chronic hypoxic respiratory failure, COPD, type 2 DM, CVA who presented to the ED because labs showed worsening renal function. 1. Stage 4 CKD with hyperkalemia - s/p permacath placement 12/11 - HD initiated - outpatient HD arranged 2. Anemia secondary to CKD 3. Type 2 DM - Continue Novolog sliding scale 4. Atrial fib - Continue Toprol XL, Coumadin 5. Chronic hypoxic respiratory failure secondary to COPD - Oxygen to maintain saturation >90% 6. Peptic ulcer disease - Continue Protonix 7. Ischemic cardiomyopathy with chronic systolic heart failure 8. CAD, history of CABG - Continue Toprol XL, Crestor 9. HTN - Continue Toprol XL 10. Hyperlipidemia - Continue Crestor 11. 2nd degree AV block, history of pacemaker 12. History of CVA 13. Valvular heart disease 14. Chronic pain 15. Disposition - Ok for discharge
== END 2019-12-14 11:12 | disposition home or self-care (01) | DRG 673 ==
LOC: JER 16:01 → SUPCPDRO 16:01 → JERBED 21:36 → J4W 12-10 07:17
PROVIDERS: ADMIT Internal Medicine; ATTEND Internal Medicine
PROC: 05HM33Z Insertion of Infusion Device into Right Internal Jugular Vein, Percutaneous Approach (ICD-10-PCS; 2019-12-11)
PROC: B513ZZA Fluoroscopy of Right Jugular Veins, Guidance (ICD-10-PCS; 2019-12-11)
PROC: 3E0337Z Introduction of Electrolytic and Water Balance Substance into Peripheral Vein, Percutaneous Approach (ICD-10-PCS; 2019-12-11)
PROC: 0JH60XZ Insertion of Tunneled Vascular Access Device into Chest Subcutaneous Tissue and Fascia, Open Approach (ICD-10-PCS; principal; 2019-12-11 15:00)
DX: I12.0 Hypertensive chronic kidney disease with stage 5 chronic kidney disease or end stage renal disease (principal); N18.6 End stage renal disease; G93.41 Metabolic encephalopathy; I50.22 Chronic systolic (congestive) heart failure; E11.22 Type 2 diabetes mellitus with diabetic chronic kidney disease; D63.1 Anemia in chronic kidney disease; J44.9 Chronic obstructive pulmonary disease, unspecified; E87.5 Hyperkalemia; E78.5 Hyperlipidemia, unspecified; Z79.4 Long term (current) use of insulin; Z99.2 Dependence on renal dialysis; Z91.15 Patient's noncompliance with renal dialysis; Z87.891 Personal history of nicotine dependence; Z86.73 Personal history of transient ischemic attack (TIA), and cerebral infarction without residual deficits
CPT/HCPCS: 36415; 71045-TC-FY; 80048; 80053; 82272; 82565; 82607; 82728; 82746; 82962; 83540; 83550; 83735; 84100; 84520; 85025; 85027; 85610; 85730; 86704; 86706; 86707; 86708; 86709; 86803; 86850; 86900; 86901; 87340; 87522; 93005; 93010; 94760; 99285-25; J1644

== ENCOUNTER 2019-12-23 13:53 | Emergency (ER) | payer OTHER ==
[2019-12-23 14:10] VITALS: BP 108/55; PULSE 60; TEMP 97.9; BMI 28.5
--- NOTE | 2019-12-23 14:10 | PDOC ---
Rapid Medical Evaluation Medical Evaluation: Allergies Allergy/AdvReac Type Severity Reaction Status Date / Time No Known Allergies Allergy Verified 12/09/19 16:39 I have performed a brief in-person evaluation of this patient. The patient presents with a chief complaint of: Hx of ESRD (), recent permacath placed 12/[address] Cobian for eval of permacath; patient has been complaining of pain along site since permacath was placed; patient last dialysis 2 days ago which he finished with no issues Pertinent physical exam findings: In NAD, site around permacath appears normal I have ordered the following: CXR The patient will proceed to the ED for further evaluation. 12/23/19 14:08
--- NOTE | 2019-12-23 18:49 | PDOC ---
History of Present Illness - General History Source: Patient Exam Limitations: No Limitations - History of Present Illness Initial Comments: 12/23/19 18:44 Patient is a 69-year-old male who presents to the ED with complaint of right shoulder pain. He had a recent permacath placed for dialysis and has been dialyzed without permacath in his right chest twice. There have been no issues with dialysis. The patient states his last dialysis was 2 days ago and he had a complete dialysis at that time. He was concerned that there was a problem with the permacath so he was advised to come to the ED for an x-ray. Of note: The states that the patient has had right shoulder pain in the past. He denies any fevers or chills. He denies any shortness of breath or weakness. The patient has a history of ESRD, COPD and is oxygen dependent. <Sarina Gonzalez - Last Filed: 12/23/19 18:44> <Jeferson Guillen - Last Filed: 12/26/19 17:32> - General Chief Complaint: Pain Stated Complaint: SENT BY DR COBIAN/VIPIN PROBLEM Time Seen by Provider: 12/23/19 14:07 Past History - Past Medical History Anemia: Yes Asthma: No Cancer: No Cardiac Disorders: Yes (9 stents, AK, CAD, cardiomyopathy, atrial fib) CVA: Yes COPD: Yes CHF: Yes Dementia: No Diabetes: Yes GI Disorders: Yes (colitis, GERD) Disorders: Yes HTN: Yes Hypercholesterolemia: Yes Kidney Stones: Yes Liver Disease: No Seizures: No Thyroid Disease: No - Surgical History Abdominal Surgery: No Appendectomy: No Cardiac Surgery: Yes (stents x 9, CABG X4) Cholecystectomy: No Lung Surgery: No Neurologic Surgery: No Orthopedic Surgery: Yes (LEFT HIP) - Immunization History Immunization Up to Date: No - Psycho Social/Smoking Cessation Hx Smoking Status: No Smoking History: Never smoked Have you smoked in the past 12 months: No Number of Cigarettes Smoked Daily: 30 If you are a former smoker, when did you quit?: 3 years Cigars Per Day: 0 'Breaking Loose' booklet given: 01/12/17 Hx Alcohol Use: No Drug/Substance Use Hx: No Substance Use Type: None Hx Substance Use Treatment: No <Sarina Gonzalez - Last Filed: 12/23/19 18:44> <Jeferson Guillen - Last Filed: 12/26/19 17:32> - Past Medical History Allergies/Adverse Reactions: Allergies Allergy/AdvReac Type Severity Reaction Status Date / Time No Known Allergies Allergy Verified 12/23/19 14:10 Home Medications: Ambulatory Orders Rosuvastatin [Crestor -] 20 mg PO DAILY 04/15/19 Tamsulosin HCl [Flomax -] 0.4 mg PO DAILY 04/15/19 Metoprolol Succinate [Toprol XL -] 25 mg PO BID #60 tab.sr.24h 04/18/19 Pantoprazole Sodium 40 mg PO DAILY 11/09/19 Warfarin Na [Coumadin -] 5 mg PO DAILY@1800 #30 tablet 12/02/19 Docusate Sodium [Colace -] 100 mg PO BID capsule 12/14/19 Warfarin Na [Coumadin -] 5 mg PO DAILY@1800 #30 tablet 12/14/19 Review of Systems - Review of Systems Comments:: 12/23/19 18:45 - Review of Systems Able to Perform ROS?: Yes Constitutional: No: Fever, Chills, Loss of Appetite, Night Sweats, Weakness HEENTM: No: Eye Pain, Vision changes, Ear Pain, Throat Pain, Throat Swelling, Mouth Pain, Difficulty Swallowing Respiratory: No: Cough, Shortness of Breath, Wheezing, Sputum Production Cardiac (ROS): No: Chest Pain, Chest Tightness, Palpitations, Irregular Heart Beat, Edema ABD/GI: No: Nausea, Vomiting, Abdominal Pain, Diarrhea : No Dysuria, No Hematuria, No Frequency, No Urgency Musculoskeletal: No: Muscle Pain, Back Pain, Joint Pain, Muscle Weakness, Neck Pain; Positive: right shoulder pain Integumentary: No: Lesions, Rash Neurological: No: Headache, Numbness, Tingling, Weakness, Speech Difficulties <Sarina Gonzalez - Last Filed: 12/23/19 18:44> *Physical Exam - Vital Signs Last Vital Signs Temp Pulse Resp BP Pulse Ox 97.9 F 60 18 108/55 L 96 12/23/19 14:07 12/23/19 14:07 12/23/19 14:07 12/23/19 14:07 12/23/19 14:07 - Physical Exam 12/23/19 18:48 - Physical Exam General Appearance: Nourished, Appropriately Dressed, No Distress Neck: Supple, No Lymphadenopathy (R), No Lymphadenopathy (L), No Rigidity, No Decreased range of motion Respiratory/Chest: Lungs Clear, Normal Breath Sounds. No Respiratory Distress, No Accessory Muscle Use Cardiovascular: Regular Rhythm, Regular Rate, S1, S2; There is a permacath in the right chest without any erythema or induration surrounding the site. There is no tenderness surrounding the site at all. There is no sign of surrounding infection. Gastrointestinal/Abdominal: Normal Bowel Sounds, Soft. Non-tender, No Guarding , No Rebound, No Rigidity Musculoskeletal: Normal Inspection. No Decreased Range of Motion; Tenderness to the right shoulder at the AC joint and along the bicipital tendon. Pain with forward flexion actively and passively. Strength 5/5 bilateral upper extremities. Extremity: Normal Capillary Refill, Normal Inspection Integumentary: Normal Color, Dry. No Rash Neurologic: complaint clerk II-XII NML intact, Fully Oriented, Alert, Normal Mood/Affect, Normal Response <Sarina Gonzalez - Last Filed: 12/23/19 18:44> - Vital Signs Last Vital Signs Temp Pulse Resp BP Pulse Ox 97.9 F 60 18 108/55 L 96 12/23/19 14:07 12/23/19 14:07 12/23/19 14:07 12/23/19 14:07 12/23/19 14:07 <Jeferson Guillen - Last Filed: 12/26/19 17:32> Medical Decision Making - Medical Decision Making 12/23/19 18:49 Assessment: Patient is a 69-year-old male with right shoulder pain that he was concerned could be from his permacath. Plan: -Chest x-ray performed shows permacath to be in proper positioning and lungs appear improved compared to previous x-ray -We have discussed the case with Dr. Cobian and he states that he believes that this is likely musculoskeletal if the permacath is in the proper position according to x-ray. He also states that 2 days ago the PermCath was used without difficulty. We have made him aware that we will have the patient follow -up with orthopedics for further evaluation and treatment of right shoulder pain. The patient understands and agrees with this treatment plan and he is stable for discharge. <Sarina Gonzalez - Last Filed: 12/23/19 18:44> - Medical Decision Making 12/26/19 17:31 The patient was seen and evaluated in conjunction with PENNY Gonzalez under my direct supervision, ancillary studies were reviewed. I independently interviewed and evaluated the patient and I agree with the plan as outlined by PENNY Gonzalez. I suspect the patient's pain is secondary to his chronic shoulder pain there is no focal tenderness to the patient's site of permacath. The pain is Localized to the anterior shoulder And only present when he Raises his R arm. There is no focal neurologic deficits. Case was discussed with Dr cobian, agrees will discharge to follow-up with orthopedics <Jeferson Guillen - Last Filed: 12/26/19 17:32> Discharge - Discharge Information Problems reviewed: Yes <Sarina Gonzalez - Last Filed: 12/23/19 18:44> <Jeferson Guillen - Last Filed: 12/26/19 17:32> - Discharge Information Clinical Impression/Diagnosis: Right shoulder pain Qualifiers: Chronicity: acute Qualified Code(s): M25.511 - Pain in right shoulder Condition: Stable Disposition: HOME - Follow up/Referral Referrals: Vin Isbell MD [Primary Care Provider] - Kvng East DO [Staff Physician] - 1 week - Patient Discharge Instructions Patient Printed Discharge Instructions: DI for Shoulder Pain Additional Instructions: Get plenty of rest and avoid any strenuous activity. Take Tylenol for the pain. Follow-up with orthopedics within 1 week for repeat evaluation. An orthopedic surgeon has been referred to you. - Post Discharge Activity
[2019-12-23] MEDS ORDERED: ACETAMINOPHEN 500 MG TABLET (FP) PO ONE (18:52)
== END 2019-12-23 19:30 | disposition home or self-care (01) ==
LOC: JER 13:53
DX: M25.511 Pain in right shoulder (principal); I25.10 Atherosclerotic heart disease of native coronary artery without angina pectoris; I13.2 Hypertensive heart and chronic kidney disease with heart failure and with stage 5 chronic kidney disease, or end stage renal disease; N18.6 End stage renal disease; I50.89 Other heart failure; Z99.2 Dependence on renal dialysis; Z95.1 Presence of aortocoronary bypass graft; Z95.5 Presence of coronary angioplasty implant and graft; I48.91 Unspecified atrial fibrillation; I42.9 Cardiomyopathy, unspecified; I25.2 Old myocardial infarction; Z79.01 Long term (current) use of anticoagulants; J44.9 Chronic obstructive pulmonary disease, unspecified; D64.9 Anemia, unspecified; E11.9 Type 2 diabetes mellitus without complications; K21.9 Gastro-esophageal reflux disease without esophagitis; E78.00 Pure hypercholesterolemia, unspecified; Z87.442 Personal history of urinary calculi; Z95.828 Presence of other vascular implants and grafts
CPT/HCPCS: 71046-TC-FY; 99283-25

== ENCOUNTER 2020-04-20 17:58 | Inpatient (IN) | payer OTHER ==
--- NOTE | 2020-04-20 18:59 | PDOC ---
History of Present Illness - General Chief Complaint: Congestive Heart Failure Stated Complaint: SHORTNESS OF BREATH Time Seen by Provider: 04/20/20 18:36 History Source: Patient Exam Limitations: No Limitations - History of Present Illness Initial Comments: 04/20/20 20:13 70 yo male with PMHs of HFrEF CAD s/p CABG (03/17), ischemic cardiomyopathy (EF 30-35%), s/p PPM, 1st degree AV block, CKD stage III, CVA, COPD on home oxygen 4L, and dialysis (MWF; had dialysis done today through chest port on right wall chest) presents to the emergency department with SOB that occurred a few hours prior to presentation. Per the patient, the sudden onset of shortness of breath occurred while at rest and worsens with exertion. He has, per the patient, been compliant with his medications but is unable to state which medications he is taking of which his takes care of. The patient denies the following: fevers, chills, nausea, vomiting, acute on chronic back pain, headache, visual disturbance, neck pain, dysuria, hematuria, diarrhea. Endorses leg pain and swelling. 04/20/20 20:21 Past History - Medical History Allergies/Adverse Reactions: Allergies Allergy/AdvReac Type Severity Reaction Status Date / Time No Known Allergies Allergy Verified 04/07/20 10:05 Home Medications: Ambulatory Orders Rosuvastatin [Crestor -] 20 mg PO HS 04/15/19 Warfarin Na [Coumadin -] 5 mg PO DAILY@1800 #30 tablet 12/02/19 Ferrous Sulfate 325 mg PO DAILY 04/20/20 Folic Acid 1 mg PO DAILY 04/20/20 Furosemide 80 mg PO DAILY 04/20/20 Isosorbide Mononitrate [Imdur -] 30 mg PO HS 04/20/20 Pantoprazole Sodium 40 mg PO DAILY 04/20/20 Pregabalin [Lyrica] 50 mg PO DAILY 04/20/20 Morphine Sulfate [Morphine Sulfate ER] 30 mg PO BID 04/21/20 oxyCODONE HCL [Roxicodone -] 20 mg PO Q6H PRN 04/21/20 Sitagliptin Phosphate [Januvia] 50 mg PO DAILY #30 tablet 04/28/20 Anemia: Yes Asthma: No Cancer: No Cardiac Disorders: Yes (9 stents, [place], CAD, cardiomyopathy, atrial fib) CVA: Yes COPD: Yes CHF: Yes Dementia: No Diabetes: Yes GI Disorders: Yes (colitis, GERD) Disorders: Yes HTN: Yes Hypercholesterolemia: Yes Kidney Stones: Yes Liver Disease: No Seizures: No Thyroid Disease: No - Surgical History Abdominal Surgery: No Appendectomy: No Cardiac Surgery: Yes (stents x 9, CABG X4) Cholecystectomy: No Lung Surgery: No Neurologic Surgery: No Orthopedic Surgery: Yes (LEFT HIP) - Immunization History Immunization Up to Date: No - Psycho-Social/Smoking History Smoking Status: No Smoking History: Never smoked Have you smoked in the past 12 months: No Number of Cigarettes Smoked Daily: 30 If you are a former smoker, when did you quit?: 3 years Cigars Per Day: 0 'Breaking Loose' booklet given: 01/12/17 - Substance Abuse Hx (Audit-C & DAST Scrn) How often the patient has a drink containing alcohol: Never Score: In Men: 4 or > Positive; In Women: 3 or > Positive: 0 Screen Result (Pos requires Nsg. Audit-10AR): Negative In the last yr the pt used illegal drug/Rx for NonMed reason: No Score: Yes response is considered Positive: 0 Screen Result (Positive result requires Nsg. DAST-10): Negative Review of Systems - Review of Systems Able to Perform ROS?: Yes Is the patient limited Greenlandic proficient: No Constitutional: Yes: Weakness. No: Chills, Diaphoresis, Fever HEENTM: No: Eye Pain, Ear Pain, Nose Pain, Throat Pain Respiratory: Yes: Shortness of Breath, SOB with Exertion, SOB at Rest. No: Coug h Cardiac (ROS): Yes: Edema (legs bilaterally). No: Chest Pain, Lightheadedness ABD/GI: No: Constipated, Diarrhea, Nausea, Rectal Bleeding, Vomiting, Tarry Stools : No: Dysuria, Hematuria Musculoskeletal: No: Back Pain, Joint Pain, Neck Pain Integumentary: No: Bruising, Rash Neurological: No: Headache, Ataxia Psychiatric: No: Change in Appetite Endocrine: No: Unexplained Weight Loss Hematologic/Lymphatic: No: Anemia *Physical Exam - Vital Signs Last Vital Signs Temp Pulse Resp BP Pulse Ox 98.6 F 84 24 H 100/70 96 04/20/20 18:17 04/20/20 18:17 04/20/20 18:17 04/20/20 18:17 04/20/20 18:20 - Physical Exam General Appearance: Yes: Nourished, Appropriately Dressed. No: Apparent Distress, Intoxicated HEENT: positive: EOMI, NITIN, Normal Voice, Pharynx Normal Neck: positive: Trachea midline, Supple. negative: Tender, Lymphadenopathy (R), Lymphadenopathy (L) Respiratory/Chest: positive: Accessory Muscle Use, Other (currently on nasal canula 4 L). negative: Chest Tender, Lungs Clear, Normal Breath Sounds (decreased breath sounds bilaterally), Respiratory Distress Cardiovascular: positive: Regular Rate, S1, S2, Irregularly Irregular. negative: Systolic Murmur Gastrointestinal/Abdominal: positive: Normal Bowel Sounds, Flat, Soft. negative: Tender Lymphatic: negative: Adenopathy Musculoskeletal: positive: Normal Inspection. negative: CVA Tenderness, Ve rtebral Tenderness Extremity: positive: Other (bilateral LE edema bilaterally. erythema is noted bilaterally from foot to inferior portion of the knee. not hot to the touch. no calf tenderness. right foot has gangrenous toe concerning for osteomyelitis. ) Integumentary: positive: Dry, Warm Neurologic: positive: Alert, Normal Mood/Affect ED Treatment Course - LABORATORY CBC & Chemistry Diagram: 04/28/20 05:35 04/28/20 05:35 Medical Decision Making - Medical Decision Making 70 yo male with PMHs of HFrEF CAD s/p CABG (03/17), ischemic cardiomyopathy (EF 30-35%), s/p PPM, 1st degree AV block, CKD stage III, CVA, COPD on home oxygen 4L, and dialysis (MWF; had dialysis done today through chest port on right wall chest) presents to the emergency department with SOB that occurred a few hours prior to presentation. Initial vitals: Initial Vital Signs Temp Pulse Resp BP Pulse Ox 98.6 F 84 24 H 100/70 97 04/20/20 18:17 04/20/20 18:17 04/20/20 18:17 04/20/20 18:17 04/20/20 18:17 Work up: patient presents ot the emergency department with SOB ddx: CHF exacerbation vs COPD exacerbation. ACS vs PNA vs pleuritis. For legs, osteomyelitis with tracking vs cellulitis vs DVT. Will order labs and imaging. EKG shows sinus rhythm with 1st degree AV block with RBBB and LAD. No ST elevations noted. PVCs noted. No ST depressions. CXR negative for acute lung pathologies, however there is a large heart noted as it has been on previous studies. Duplex US negative bilaterally for DVT. The patient has a foot xray that is negative for osteomyelitis Laboratory Tests 04/20/20 04/20/20 04/20/20 18:50 18:50 18:50 WBC 10.7 H RBC 4.18 Hgb 12.3 Hct 38.7 D MCV 92.5 MCH 29.3 MCHC 31.7 L RDW 19.4 H Plt Count 172 MPV 9.0 Absolute Neuts (auto) 9.1 H Neutrophils % 85.1 H Neutrophils % (Manual) 79.0 Band Neutrophils % 7.0 Lymphocytes % 4.3 L D Lymphocytes % (Manual) 6.0 L D Monocytes % 8.7 Monocytes % (Manual) 4 Eosinophils % 1.0 D Eosinophils % (Manual) 0.0 Basophils % 0.9 Basophils % (Manual) 1.0 Myelocytes % (Man) 3 H D Nucleated RBC % 0 Platelet Estimate Adequate Anisocytosis 1+ ESR 34 H PT with INR 46.30 H INR 3.87 H VBG pH POC VBG pCO2 POC VBG pO2 VBG HCO3 VBG O2 Sat (Radha) VBG Base Excess Sodium 138 Potassium 3.3 L Chloride 102 Carbon Dioxide 24 Anion Gap 11 BUN 41.8 H Creatinine 3.2 H Est GFR (CKD-EPI)AfAm 21.26 Est GFR (CKD-EPI)NonAf 18.34 Random Glucose 189 H Calcium 8.3 L Magnesium 1.9 Total Bilirubin 0.2 AST 19 ALT 27 Alkaline Phosphatase 141 H Creatine Kinase 70 Troponin I 0.04 C-Reactive Protein 4.8 H B-Natriuretic Peptide 33510.4 H Total Protein 7.3 Albumin 3.8 COVID-19 (DANIELA) 04/20/20 04/20/20 18:50 21:05 WBC RBC Hgb Hct MCV MCH MCHC RDW Plt Count MPV Absolute Neuts (auto) Neutrophils % Neutrophils % (Manual) Band Neutrophils % Lymphocytes % Lymphocytes % (Manual) Monocytes % Monocytes % (Manual) Eosinophils % Eosinophils % (Manual) Basophils % Basophils % (Manual) Myelocytes % (Man) Nucleated RBC % Platelet Estimate Anisocytosis ESR PT with INR INR VBG pH 7.220 L POC VBG pCO2 66.7 H POC VBG pO2 < 46.9 VBG HCO3 26.7 VBG O2 Sat (Radha) 48.0 L VBG Base Excess -2.3 L Sodium Potassium Chloride Carbon Dioxide Anion Gap BUN Creatinine Est GFR (CKD-EPI)AfAm Est GFR (CKD-EPI)NonAf Random Glucose Calcium Magnesium Total Bilirubin AST ALT Alkaline Phosphatase Creatine Kinase Troponin I C-Reactive Protein B-Natriuretic Peptide Total Protein Albumin COVID-19 (DANIELA) Not detected ESR and CRP noted to be elevated with a slightly elevated WBC count Troponin negative, however BNP is elevated Patient likely is having COPD exacerbation vs CHF. Likely it is a mix. Will admit patient for exacerbation of both. Gave the patient steroids and albuterol inhaler. Clindamycin was started. Dispo: Admit Discharge - Discharge Information Problems reviewed: Yes Clinical Impression/Diagnosis: COPD (chronic obstructive pulmonary disease) - Follow up/Referral - Patient Discharge Instructions - Post Discharge Activity
[2020-04-20] MEDS ORDERED: ALBUTEROL SO4 HFA INHALER IH ONE ×2 (19:10→19:32)
[2020-04-20] MEDS ORDERED: methylPREDNISolone NA SUCC 125 MG/2 ML VIAL IVPB ONE (19:10)
[2020-04-20 19:16] LABS: VENOUS BASE EXCESS -2.3 mmol/L (-2-2); VENOUS PCO2 66.7 mmHg (38-52)
[2020-04-20 19:17] LABS: BASO % 0.9 % (0-2.0); HEMATOCRIT 38.7 % (35.4-49); HEMOGLOBIN 12.3 GM/dL (11.7-16.9); LYMPH % 4.3 % (8-40); MCH 29.3 pg (25.7-33.7); MCHC 31.7 g/dl (32.0-35.9); MEAN CELL VOLUME 92.5 fl (80-96); MONO % 8.7 % (3.8-10.2); NEUT % 85.1 % (42.8-82.8); PLATELET COUNT 172 K/MM3 (134-434); RBC 4.18 M/mm3 (4.00-5.60); RDW 19.4 % (11.9-15.9); WHITE BLOOD COUNT 10.7 K/mm3 (4.0-10.0)
[2020-04-20 19:23] LABS: INR 3.87 (0.83-1.09); PROTHROMBIN TIME (PATIENT) 46.3 SEC (9.7-13.0)
[2020-04-20] MEDS ORDERED: methylPREDNISolone NA SUCC 125 MG/2 ML VIAL ONE (19:33)
[2020-04-20 19:46] LABS: ALBUMIN 3.8 g/dl (3.4-5.0); BILIRUBIN,TOTAL 0.2 mg/dL (0.2-1); BLOOD UREA NITROGEN 41.8 mg/dL (7-18); CALCIUM 8.3 mg/dL (8.5-10.1); CREATININE 3.2 mg/dL (0.55-1.3); N-TERMINAL BNP 26061.4 pg/ml (5-125); POTASSIUM 3.3 mmol/L (3.5-5.1); TOT PROT 7.3 g/dl (6.4-8.2)
[2020-04-20 19:51] LABS: ANISOCYTOSIS 1+; PLATELET ESTIMATE ADEQUATE
[2020-04-20] MEDS ORDERED: DOCUSATE SODIUM 100 MG CAPSULE (FP) PO ONE ×2 (20:17→20:48)
[2020-04-20] MEDS ORDERED: oxyCODONE HCL 5 MG TABLET PO ONE (20:17)
[2020-04-20] MEDS ORDERED: CLINDAMYCIN 600MG PREMIX IVPB 600 MG/50 ML BAG IVPB ONE ×2 (20:28→20:49)
--- NOTE | 2020-04-20 20:35 | PDOC ---
Documentation entered by Saray Swartz SCRIBE, acting as scribe for Sinai Sánchez MD. Sinai Sánchez MD: This documentation has been prepared by the fideliaibe, Saray Knapp SCRIBE, under my direction and personally reviewed by me in its entirety. I confirm that the documentation accurately reflects all work, treatment, procedures, and medical decision making performed by me. Attending Attestation - Resident Resident Name: KitEarl - ED Attending Attestation I have performed the following: I have examined & evaluated the patient, The case was reviewed & discussed with the resident, I agree w/resident's findings & plan, Exceptions are as noted - HPI HPI: 04/20/20 19:09 The patient is a 70 year old male with a significant past medical history of HFrEF CAD status post CABG 02/2019 ischemic cardiomyopathy, ejection fraction of 29%, at baseline CKD stage III, type 2 diabetes mellitus CVA, status post pacemaker, requires 4L home O2 who presents to the emergency department with shortness of breath. As per patient, he states he began to feel SOB a few hours prior to arrival, he reports being dyspneic on exertion and orthopneic. Patient also reports associated leg swelling. Denies fever and chills. Denies back pain or abdominal pain . He denies any recent nausea, vomiting, diarrhea or constipation. - Physicial Exam PE: 04/20/20 20:11 70 yo male BIBA for increasing shortness of breath that started 2 hours prior to arrival. He states he has chronic back pain and takes morphine 20 mg BID and oxycodone 20 mg Q4H PMH chf,copd on home supplemental oxygen . He currently was on 4 L nasal cannula EF=30-35%,CKD stage ,dialysis M W F PSH cabg 2019 wnwd 70 yo male with shortness of breath head ncat neck supple lungs decreased breath sounds cvs irreg abdomen no rebound extremities +2 edema, both legs are erythematous neuro alert and conversant,moving all extremities 04/20/20 20:33 - Medical Decision Making 04/20/20 21:47 pt received antibiotics for cellulitis of legs Steroids,albuterol.bipap ,antibiotics given to pt pt admitted , Dr Lisa admitting Discharge - Discharge Information Problems reviewed: Yes Clinical Impression/Diagnosis: COPD (chronic obstructive pulmonary disease) - Follow up/Referral Referrals: Vin Isbell MD [Primary Care Provider] - - Patient Discharge Instructions - Post Discharge Activity
--- NOTE | 2020-04-20 20:44 | PN ---
Teaching Attending Note Name of Resident: Cecelia Linda ATTENDING PHYSICIAN STATEMENT I saw and evaluated the patient. I reviewed the resident's note and discussed the case with the resident. I agree with the resident's findings and plan as documented. SUBJECTIVE: Patient is a 70 year old man with a PMH of Afib (on Coumadin), HFrEF, CAD (s/p CABG in 03/17), NIDDM, Ischemic cardiomyopathy (EF 30-35%), PPM, 1st degree AV block, CVA, COPD (on home oxygen 4L) and ESRD on hemodialysis (MWF; had dialysis done today) presents to the ER with SOB that occurred a few hours prior to presentation. Per the patient, the sudden onset of shortness of breath occurred while at rest and worsens with exertion. Patient professes compliance with his medications. He reports being dyspneic on exertion and orthopneic with associated leg swelling and leg pain. Patient denies fevers, chills, nausea, vomiting, acute on chronic back pain, headache, visual disturbance, neck pain, dysuria, hematuria or diarrhea. Denies alcohol, tobacco or illicit drug use. No sick contacts or recent travels. Family history is unremarkable. OBJECTIVE: Alert on BiPAP Vital Signs Period Temp Pulse Resp BP Sys/Chandra Pulse Ox Last 24 Hr 98.6 F 79-84 24 100/70 95-97 HEENT: No Jaundice, eye redness or discharge, PERRLA, EOMI. Normocephalic, atraumatic. External ears are normal and hearing is grossly intact. No nasal discharge. Neck: Supple, nontender. No palpable adenopathy or thyromegaly. No JVD Chest: Good effort. Right chest permacath. Diminished basilar breath sounds. Clear to percussion. Heart: Regular. No S3, rub or murmur Abdomen: Obese abdomen, soft, nontender and no HSM. No rebound or guarding. Normal bowel sounds. Ext: Peripheral pulses intact. Leg edema. LLE erythema. Multiple toe wounds. Skin: Warm and dry. No petechiae, rash or ecchymosis. Neuro: Alert. Oriented x3. CN 2-12 grossly intact. Sensation grossly intact in all four extremities and DTR are symmetric. Psych: Appropriate mood and affect. Good insight. Current Medications Generic Name Dose Route Start Last Admin Trade Name Freq PRN Reason Stop Dose Admin Clindamycin Phosphate 600 mg in 50 mls @ 100 mls/hr 04/20/20 20:28 Cleocin 600 Mg Premix Ivpb - IVPB 04/20/20 20:57 ONCE ONE Home Medications Medication Instructions Recorded Rosuvastatin [Crestor -] 20 mg PO DAILY 04/15/19 Tamsulosin HCl [Flomax -] 0.4 mg PO DAILY 04/15/19 Pantoprazole Sodium 40 mg PO DAILY 11/09/19 Warfarin Na [Coumadin -] 5 mg PO DAILY@1800 #30 tablet 12/02/19 Docusate Sodium [Colace -] 100 mg PO BID capsule 12/14/19 Abnormal Lab Results 04/20/20 04/20/20 04/20/20 18:50 18:50 18:50 WBC 10.7 H MCHC 31.7 L RDW 19.4 H Absolute Neuts (auto) 9.1 H Neutrophils % 85.1 H Lymphocytes % 4.3 L D Lymphocytes % (Manual) 6.0 L D Myelocytes % (Man) 3 H D PT with INR 46.30 H INR 3.87 H VBG pH POC VBG pCO2 VBG O2 Sat (Radha) VBG Base Excess Potassium 3.3 L BUN 41.8 H Creatinine 3.2 H Random Glucose 189 H Calcium 8.3 L Alkaline Phosphatase 141 H C-Reactive Protein 4.8 H B-Natriuretic Peptide 20957.4 H 04/20/20 18:50 WBC MCHC RDW Absolute Neuts (auto) Neutrophils % Lymphocytes % Lymphocytes % (Manual) Myelocytes % (Man) PT with INR INR VBG pH 7.220 L POC VBG pCO2 66.7 H VBG O2 Sat (Radha) 48.0 L VBG Base Excess -2.3 L Potassium BUN Creatinine Random Glucose Calcium Alkaline Phosphatase C-Reactive Protein B-Natriuretic Peptide Current Medications Generic Name Dose Route Start Last Admin Trade Name Freq PRN Reason Stop Dose Admin Ferrous Sulfate 325 mg 04/21/20 10:00 Feosol - PO DAILY RADHA Folic Acid 1 mg 04/21/20 10:00 Folic Acid - PO DAILY RADHA Potassium Chloride 10 meq in 100 mls @ 100 mls/hr 04/20/20 23:45 Potassium Chloride 10 Meq Premix Ivpb - IVPB 04/21/20 02:44 Q60M RADHA Clindamycin Phosphate 600 mg in 50 mls @ 100 mls/hr 04/21/20 02:00 Cleocin 600 Mg Premix Ivpb - IVPB Q8H-IV [facility] Protocol Insulin Aspart 1 vial 04/21/20 07:00 Novolog Vial Sliding Scale - SQ ACHS [facility] Protocol Pantoprazole Sodium 40 mg 04/21/20 10:00 Protonix - PO DAILY RADHA Polyethylene Glycol 17 gm 04/21/20 10:00 Miralax (For Daily Use) - PO BID RADHA Rosuvastatin Calcium 10 mg 04/21/20 22:00 Crestor - PO HS [facility] ASSESSMENT AND PLAN: 1. Volume overload/CHF exacerbation/LLE cellulitis - Findings partly due to fluid overload due to inefficient cathether dialysis superimposed on poor LV function. Will need to review his hemodialysis records for the past 1 month to see exactly what happens in terms of his fluid balance. Consult Nephrology for hemodialysis and adequate fluid removal. Will stop lasix and hold any BP lowering medication. Quantify daily urine output and ask Urology if he still needs Flomax, since it may also cause hypotension. Blood pressure lowering drugs will cause intradialytic hypotension, prompting infusion of IV saline. Get leg doppler to rule out DVT. CXR shows cardiomegaly, pulmonary vascular congestion, left pacemaker and right dialysis permacath. Treat possible cellulitis with IV Clindamycin. Viral testing for COVID-19 ordered and patient placed on airborne, droplet and contact isolation. ER staff prescribed Solumedrol, Colace, Albuterol, Oxycodone and Clindamycin for the patient. EKG shows NSR at 78/minute and QTc 544, PVCs, LAE, LAD with no significant ST-T wave changes. Initial troponin is negative. Will admit to telemetry, trend troponin, get ECHO, restrict dietary salt intake, get daily weight and consult Cardiology. Avoid drugs that may prolong QTc. Hypokalemia reflects postdialysis blood sampling - will repeat BMP. Hold Coumadin for supratherapeutic INR and monitor INR daily. Will continue comprehensive care for all of patients comorbid conditions. 2. Uncontrolled DM For now, we will hold the home diabetes drugs and implement sliding scale insulin regimen. Provide comprehensive diabetes care with patient teaching and counseling about the importance of adherence to prescribed diabetes regimen, euglycemia, eye care and foot care. 3. Hypertension Will restart suitable outpatient antihypertensive drugs when clinically appropriate. Subsequently, will revise regimen to ensure [id number] excellent BP control. Patient counseled on the injurious effects of uncontrolled hypertension. Nonpharmacologic measures to control hypertension like weight loss, salt restriction and exercise stressed. Importance of adherence to treatment regimen and attainment of normotension emphasized. 4. DVT prophylaxis - On Coumadin 5. Advance directives - DNR/DNI
[2020-04-20] MEDS ORDERED: oxyCODONE HCL 5 MG TABLET ONE (20:48)
[2020-04-20 20:56] LABS: ERYTHROCYTE SEDIMENTATION RATE 34 mm/hr (0-20)
--- NOTE | 2020-04-20 23:24 | HP ---
CHIEF COMPLAINT: SOB PCP: Dr. Isbell CARDIO: Dr. Mckeon NEPHRO: Dr. Cobian PODIATRY: Dr. Fowler HISTORY OF PRESENT ILLNESS: 70 y/o M PMHx HFrEF (EF 30-35%, Global LV Hypokinesis), CAD (S/P CABG), Ischemic Cardiomyopathy s/p PPM, 1st degree AV Block, CVA, COPD (on 4L Home O2), ESRD on HD (Makes urine, on HD MWF) IDDM, presents with SOB. Patient is a poor historian and provides minimal history, thus the majority of the HPI was provided by the over the phone. Patient has been having worsening SOB for many years that typically comes and goes. also mentions that the patient typically presents with lethargy (as he has done for the past few weeks) whenever he is infected. mentions that after his HD session, patient was able to ambulate < 5 ft before becoming extremely SOB. He was also lethargic in the car ride home prompting her to bring him to [facility]. Patient says that at each occurence, the SOB is sudden onset and without any accompany chest pain. Denies any fevers, chills, nausea, vomiting, diarrhea, constipation. Denies any orthopnea or decreased exercise tolerence. Patients endorses medication complaince. Of note, as per patient is on Oxycodone 20Q4 and Morphine 30 BID. ER course was notable for: (1) Oxycodone, Colace, Medrol, Clindamycin (2) (3) Recent Travel: Denies PAST MEDICAL HISTORY: As per HPI PAST SURGICAL HISTORY: CABG (01/2019), Right Hip nail, Cardiac cath with 5 prior stents Social History: Smoking: Stopped 3 years ago, 5ppd prior since age 16 Alcohol: Denies Drugs: Denies Occupation: Retired [employer] employee Ambulation: Walker Residence: With at home, Has hospital bed Allergies No Known Allergies Allergy (Verified 04/07/20 10:05) HOME MEDICATIONS: Home Medications Medication Instructions Recorded Rosuvastatin [Crestor -] 20 mg PO DAILY 04/15/19 Tamsulosin HCl [Flomax -] 0.4 mg PO DAILY 04/15/19 Pantoprazole Sodium 40 mg PO DAILY 11/09/19 Warfarin Na [Coumadin -] 5 mg PO DAILY@1800 #30 tablet 12/02/19 Docusate Sodium [Colace -] 100 mg PO BID capsule 12/14/19 REVIEW OF SYSTEMS As per HPI PHYSICAL EXAMINATION Vital Signs - 24 hr 04/20/20 04/20/20 04/20/20 18:17 18:20 19:46 Temperature 98.6 F Pulse Rate 84 Respiratory 24 H Rate Blood Pressure 100/70 O2 Sat by Pulse 97 96 95 Oximetry (%) 04/20/20 19:50 Temperature Pulse Rate 79 Respiratory Rate Blood Pressure O2 Sat by Pulse 96 Oximetry (%) GENERAL: A&Ox3 HEAD: NCAT EYES: PERRL, EOMI ENT: Dry mucous membranes NECK: No JVD LUNGS: Diminished breath sounds at the bases, Rales in the upper lobes No wheezes, no crackles HEART: Irregularly Irregular, S1 S2 ABDOMEN: Soft, nontender, distended, + bowel sounds, midline redoucible hernia, no guarding, no rebound EXTREMITIES: 2+ pitting edema, Streaking overlying erythema, Minimally warm, Non tender. LLE 2nd digit with ~1cm overlying healing wound with scab. RLE 1st digit with 2cm overlying wound with granulation tissue, no drainage, non tender. NEUROLOGICAL: Cranial nerves II-XII intact. Laboratory Results - last 24 hr 04/20/20 04/20/20 04/20/20 18:50 18:50 18:50 WBC 10.7 H RBC 4.18 Hgb 12.3 Hct 38.7 D MCV 92.5 MCH 29.3 MCHC 31.7 L RDW 19.4 H Plt Count 172 MPV 9.0 Absolute Neuts (auto) 9.1 H Neutrophils % 85.1 H Neutrophils % (Manual) 79.0 Band Neutrophils % 7.0 Lymphocytes % 4.3 L D Lymphocytes % (Manual) 6.0 L D Monocytes % 8.7 Monocytes % (Manual) 4 Eosinophils % 1.0 D Eosinophils % (Manual) 0.0 Basophils % 0.9 Basophils % (Manual) 1.0 Myelocytes % (Man) 3 H D Nucleated RBC % 0 Platelet Estimate Adequate Anisocytosis 1+ ESR 34 H PT with INR 46.30 H INR 3.87 H VBG pH POC VBG pCO2 POC VBG pO2 VBG HCO3 VBG O2 Sat (Radha) VBG Base Excess Sodium 138 Potassium 3.3 L Chloride 102 Carbon Dioxide 24 Anion Gap 11 BUN 41.8 H Creatinine 3.2 H Est GFR (CKD-EPI)AfAm 21.26 Est GFR (CKD-EPI)NonAf 18.34 Random Glucose 189 H Calcium 8.3 L Total Bilirubin 0.2 AST 19 ALT 27 Alkaline Phosphatase 141 H Creatine Kinase 70 Troponin I 0.04 C-Reactive Protein 4.8 H B-Natriuretic Peptide 63284.4 H Total Protein 7.3 Albumin 3.8 04/20/20 18:50 WBC RBC Hgb Hct MCV MCH MCHC RDW Plt Count MPV Absolute Neuts (auto) Neutrophils % Neutrophils % (Manual) Band Neutrophils % Lymphocytes % Lymphocytes % (Manual) Monocytes % Monocytes % (Manual) Eosinophils % Eosinophils % (Manual) Basophils % Basophils % (Manual) Myelocytes % (Man) Nucleated RBC % Platelet Estimate Anisocytosis ESR PT with INR INR VBG pH 7.220 L POC VBG pCO2 66.7 H POC VBG pO2 < 46.9 VBG HCO3 26.7 VBG O2 Sat (Radha) 48.0 L VBG Base Excess -2.3 L Sodium Potassium Chloride Carbon Dioxide Anion Gap BUN Creatinine Est GFR (CKD-EPI)AfAm Est GFR (CKD-EPI)NonAf Random Glucose Calcium Total Bilirubin AST ALT Alkaline Phosphatase Creatine Kinase Troponin I C-Reactive Protein B-Natriuretic Peptide Total Protein Albumin ASSESSMENT/PLAN: 70 y/o M PMHx HFrEF (EF 30-35%, Global LV Hypokinesis), CAD (S/P CABG), Ischemic Cardiomyopathy s/p PPM, 1st degree AV Block, CVA, COPD (on 4L Home O2), ESRD on HD (Makes urine, on HD MWF) IDDM, presents with SOB. #SOB -Possibly due to worsening CHF in the setting of inadequate fluid removal during HD -Goven Lasix 80 x1 in ED, CXR resemble pulmonary vascular congestions -Nephrology (Dr. Cobian) consulted, Case discussed who suggests Lasix and Potassium repletion -Duplex B/L LE to r/o DVT -Hold Pain medications given lethragy -Monitor I&Os, Strict daily weights -Echo to evaluate for worsening EF -Will complete sepsis workup, CXR, Blood Cx, UA -Covid19 testing #B/L LE Erythema -Possibly due to cellulitis of b/l LE -Continue Clindamycin -Podiatry consult for B/L LE Toe Wounds #Hypokalemia -In the setting of Lasix use -Repleted IV only for now as patient remains NPO while on Bipap -Further dosing of Lasix as per nephro #Supratherapeutic INR -Hold further warfarin until clinically appropriate #CAD (S/P CABG) -Patient previously on ASA/Plavix given stent hx however stopped due to GI Bleeding #COPD -Supplemental O2 to maintain spo2 88-92% - to bring in home dose inhalers #ESRD on HD (HD MWF) -Nephrology consulted #HTN -Home dose antihypertensives held as these may result in intradialytic hypotension prompting IVF infusion #IDDM -ISS BGMs ACHS #FEN -No standing fluids -Replete Lytes PRN -NPO while on Bipap #PPx -DVT: SCDs, Supratherapeutic INR Dispo: Admit to Tele Visit type - Emergency Visit Emergency Visit: Yes ED Registration Date: 04/20/20 Care time: The patient presented to the Emergency Department on the above date and was hospitalized for further evaluation of their emergent condition. - New Patient This patient is new to me today: Yes Date on this admission: 04/22/20 - Critical Care Critical Care patient: No ATTENDING PHYSICIAN STATEMENT I saw and evaluated the patient. I reviewed the resident's note and discussed the case with the resident. I agree with the resident's findings and plan as documented. SUBJECTIVE: OBJECTIVE: ASSESSMENT AND PLAN:
[2020-04-20 23:35] LABS: MAGNESIUM 1.9 mg/dL (1.8-2.4)
[2020-04-20] MEDS: KCL 10 MEQ IVPB 10 MEQ/100 ML INFUS.BAG IVPB SCH (23:50)
[2020-04-20] MEDS ORDERED: KCL 10 MEQ IVPB 10 MEQ/100 ML INFUS.BAG IVPB ONE (23:52)
[2020-04-21 00:26] LABS: EPI CELLS 3 /uL (0-25.1); HYALINE CASTS 2 /uL (0-3.1); URINE APPEARANCE TURBID; URINE BILIRUBIN NEGATIVE (NEGATIVE); URINE COLOR DK YELLOW; URINE GLUCOSE (UA) NEGATIVE (NEGATIVE); URINE KETONE TRACE (NEGATIVE); URINE LEUK ESTERASE 1+ (NEGATIVE); URINE NITRITE NEGATIVE (NEGATIVE); URINE PROTEIN 2+ (NEGATIVE); URINE WBC 16 /uL (0-25.8)
[2020-04-21] MEDS ORDERED: oxyCODONE HCL 5 MG TABLET PO ONE (01:31)
[2020-04-21 02:10] LABS: URINE RBC 5650 /uL (0-23.9)
[2020-04-21 02:11] LABS: URINE BACTERIA 6 /uL (0-1359)
[2020-04-21] MEDS: KCL 10 MEQ IVPB 10 MEQ/100 ML INFUS.BAG IVPB SCH ×2 (02:20→05:31)
[2020-04-21] MEDS: CLINDAMYCIN 600MG PREMIX IVPB 600 MG/50 ML BAG IVPB SCH ×2 (03:45→10:21)
[2020-04-21] MEDS: INSULIN SLIDING SCALE (NOVOLOG) 1 VIAL SQ SCH ×4 (06:10→21:40)
[2020-04-21 06:56] LABS: BASO % 0.4 % (0-2.0); HEMATOCRIT 36.2 % (35.4-49); HEMOGLOBIN 11.4 GM/dL (11.7-16.9); LYMPH % 2.9 % (8-40); MCHC 31.5 g/dl (32.0-35.9); MEAN PLT VOLUME 9.6 fl (7.5-11.1); MONO % 1.2 % (3.8-10.2); NEUT % 95.5 % (42.8-82.8); PLATELET COUNT 158 K/MM3 (134-434); RBC 3.93 M/mm3 (4.00-5.60); RDW 19.6 % (11.9-15.9); WHITE BLOOD COUNT 10.5 K/mm3 (4.0-10.0)
[2020-04-21 07:14] LABS: ALBUMIN 3.4 g/dl (3.4-5.0); BILIRUBIN,TOTAL 0.4 mg/dL (0.2-1); BLOOD UREA NITROGEN 52.7 mg/dL (7-18); CALCIUM 8.2 mg/dL (8.5-10.1); CREATININE 3.5 mg/dL (0.55-1.3); MAGNESIUM 1.8 mg/dL (1.8-2.4); PHOSPHOROUS 3.8 mg/dL (2.5-4.9); TOT PROT 6.8 g/dl (6.4-8.2)
[2020-04-21] MEDS ORDERED: FUROSEMIDE 40 MG/4 ML INJECTABLE VIAL IVPUSH ONE (10:00)
[2020-04-21 10:09] LABS: ANISOCYTOSIS 3+; MACROCYTOSIS 1+
[2020-04-21] MEDS: POLYETHYLENE GLYCOL 3350 119 GM BTL PO SCH ×2 (10:21→21:39)
[2020-04-21] MEDS: FOLIC ACID 1 MG TABLET (FP) PO SCH (10:21)
[2020-04-21] MEDS: FERROUS SO4 325 MG TABLET (FP) PO SCH (10:21)
[2020-04-21] MEDS: PANTOPRAZOLE 40 MG TABLET PO SCH (10:21)
--- NOTE | 2020-04-21 10:45 | CONSULT ---
Consult Consult Specialty:: Nephrology Reason for Consultation:: esrd - History of Present Illness Chief Complaint: shortness of breath History of Present Illness: Pt is a 70 year old male with pmhx of esrd, chf, cva, copd, DM, and chronic back pain who presents to the ER last night with shortness of breath. He did get HD yesterday. He denies chest pain or palpitations. He was hypoxic and required bipap. He responded to lasix. His breathing did improve overnight. He is currently on nasal canula. He complains of worsening lower ext edema. He says that the shortness of breath was sudden when it started. He denies fevers, chills, or sick contacts. He denies cough. - History Source History Provided By: Patient, Medical Record - Past Medical History [employer]: Yes: CVA, Peripheral Neuropathy Cardio/Vascular: Yes: CHF, HTN, Hyperlipdemia, LA Pulmonary: Yes: Bronchitis, COPD, O2 Dependent, Pneumonia, Previously Intubated. No: Asthma, Pulmonary Embolus, Pulmonary Fibrosis Gastrointestinal: Yes: GERD, Other (Recent GIB) Renal/: Yes: Renal Failure, Renal Inusuff, Other Infectious Disease: Yes: MRSA Psych: Yes: Addictions Musculoskeletal: Yes: Other, Other Endocrine: Yes: Diabetes Mellitus - Past Surgical History Past Surgical History: Yes: CABG (4v), Permanent Pacemaker, Stent (PCIX5) - Alcohol/Substance Use Hx Alcohol Use: No History of Substance Use: reports: None - Smoking History Smoking history: Former smoker Have you smoked in the past 12 months: No Aproximately how many cigarettes per day: 30 If you are a former smoker, when did you quit?: 3 years - Social History Usual Living Arrangement: With Spouse ADL: Family Assistance History of Recent Travel: No Home Medications - Allergies Allergies/Adverse Reactions: Allergies Allergy/AdvReac Type Severity Reaction Status Date / Time No Known Allergies Allergy Verified 04/07/20 10:05 - Home Medications Home Medications: Ambulatory Orders Rosuvastatin [Crestor -] 20 mg PO HS 04/15/19 Warfarin Na [Coumadin -] 5 mg PO DAILY@1800 #30 tablet 12/02/19 Ferrous Sulfate 325 mg PO DAILY 04/20/20 Folic Acid 1 mg PO DAILY 04/20/20 Furosemide 80 mg PO DAILY 04/20/20 Isosorbide Mononitrate [Imdur -] 30 mg PO HS 04/20/20 Pantoprazole Sodium 40 mg PO DAILY 04/20/20 Pregabalin [Lyrica] 50 mg PO DAILY 04/20/20 Family Medical History Family History: Denies Review of Systems - Review of Systems Constitutional: reports: Malaise, Weakness Eyes: reports: No Symptoms HENT: reports: No Symptoms Neck: reports: No Symptoms Cardiovascular: reports: Edema, Shortness of Breath. denies: Chest Pain Respiratory: reports: SOB, SOB on Exertion. denies: Cough Gastrointestinal: reports: No Symptoms Genitourinary: reports: No Symptoms Musculoskeletal: reports: No Symptoms Integumentary: reports: No Symptoms Neurological: reports: No Symptoms Endocrine: reports: No Symptoms Hematology/Lymphatic: reports: No Symptoms Psychiatric: reports: No Symptoms Physical Exam Vital Signs: Vital Signs Temperature 97.8 F 04/21/20 06:00 Pulse Rate 86 04/21/20 08:00 Respiratory Rate 22 H 04/21/20 08:00 Blood Pressure 121/58 L 04/21/20 08:00 O2 Sat by Pulse Oximetry (%) 96 04/21/20 06:00 Constitutional: Yes: Calm Eyes: Yes: Conjunctiva Clear HENT: Yes: Atraumatic Neck: Yes: Supple Cardiovascular: Yes: JVD, S1, S2 Respiratory: Yes: On Nasal O2, Rhonchi Gastrointestinal: Yes: Soft Renal/: Yes: WNL Musculoskeletal: Yes: WNL Edema: Yes Edema: LLE: 2+, RLE: 2+ Neurological: Yes: Oriented Psychiatric: Yes: Oriented Labs: CBC, BMP 04/21/20 05:30 04/21/20 05:30 Imaging - Results Chest X-ray: Report Reviewed Problem List - Problems (1) ESRD (end stage renal disease) Code(s): N18.6 - END STAGE RENAL DISEASE (2) COPD (chronic obstructive pulmonary disease) Code(s): J44.9 - CHRONIC OBSTRUCTIVE PULMONARY DISEASE, UNSPECIFIED Assessment/Plan Current Medications Generic Name Dose Route Start Last Admin Trade Name Freq PRN Reason Stop Dose Admin Albumin Human 12.5 gm 04/21/20 07:30 Albumin Human 25% IVPB Q30M RADHA Ferrous Sulfate 325 mg 04/21/20 10:00 04/21/20 10:21 Feosol - PO 325 mg DAILY RADHA Administration Folic Acid 1 mg 04/21/20 10:00 04/21/20 10:21 Folic Acid - PO 1 mg DAILY RADHA Administration Clindamycin Phosphate 600 mg in 50 mls @ 100 mls/hr 04/21/20 02:00 04/21/20 10:21 Cleocin 600 Mg Premix Ivpb - IVPB 100 mls/hr Q8H-IV RADHA Administration Protocol Sodium Chloride 250 mls @ 3,000 mls/hr 04/21/20 07:16 Normal Saline - IV 04/22/20 07:16 PRN PRN Hypotension during Dialysis Insulin Aspart 1 vial 04/21/20 07:00 04/21/20 06:10 Novolog Vial Sliding Scale - SQ 2 units ACHS RADHA Administration Protocol Pantoprazole Sodium 40 mg 04/21/20 10:00 04/21/20 10:21 Protonix - PO 40 mg DAILY RADHA Administration Polyethylene Glycol 17 gm 04/21/20 10:00 04/21/20 10:21 Miralax (For Daily Use) - PO 17 gm BID RADHA Administration Rosuvastatin Calcium 10 mg 04/21/20 22:00 Crestor - PO HS RADHA Impression 1. ESRD 2. shortness of breath 3. copd 4. chf 5. positive anti-histone ab 6. fluid overload 7. cva 8. anemia Plan - will arrange for HD today for UF - lasix on non HD days - dietary eval, renal diet, discussed compliance - monitor bp and pulse - follow cultures - trend wbc - discussed with medical team - cont ICU care - monitor pulse ox - will dialyze in ICU at bedside
[2020-04-21 11:03] LABS: PLATELET ESTIMATE ADEQUATE
--- NOTE | 2020-04-21 11:12 | ECHO ---
Name: MERVAT COX Exam:Adult Echocardiogram Study Date: 04/21/2020 07:47 AM Age: 70 yrs Reason For Study: LV Function Height: 66 in Weight: 187 lb BSA: 1.9 m2 MMode/2D Measurements & Calculations IVSd: 1.3 cm Ao root diam: 2.7 cm LVIDd: 5.5 cm LA dimension: 4.2 cm LVIDs: 5.0 cm LVPWd: 1.2 cm EDV(Teich): 149.2 ml LVOT diam: 2.0 cm ESV(Teich): 117.7 ml LAV (MOD-bp): 53.0 ml Doppler Measurements & Calculations MV E max meño: 132.0 cm/sec Ao V2 max: 96.9 cm/sec MV A max meño: 58.2 cm/sec Ao max P.8 mmHg MV E/A: 2.3 MV dec time: 0.08 sec KERMIT(V,D): 2.1 cm2 LV V1 max P.6 mmHg TR max meño: 312.4 cm/sec LV V1 max: 63.8 cm/sec TR max P.4 mmHg PA V2 max: 80.2 cm/sec Med Peak E' Meño: 5.8 cm/sec PA max P.6 mmHg Med E/e': 22.9 Lat Peak E' Meño: 8.9 cm/sec Lat E/e': 14.8 PI Vmax: 127.0 cm/sec Procedure A two-dimensional transthoracic echocardiogram with color flow and Doppler was performed. Left Ventricle The left ventricle is normal in size. There is mild concentric left ventricular hypertrophy. Left jamison tricular systolic function is severely reduced. Ejection Fraction = 25%. Diastolic dysfunction, Grade II, cons istent with elevated left atrial pressure. There is severe global hypokinesis of the left ventricle. Right Ventricle There is a pacemaker lead in the right ventricle. The right ventricle is normal size. The right ventr icular systolic function is mildly reduced. Atria The left atrium is mildly dilated. Right atrial size is normal. Mitral Valve The mitral valve is grossly normal. There is mild mitral regurgitation. Tricuspid Valve The tricuspid valve is not well visualized, but is grossly normal. There is mild tricuspid regurgitat ion. mild to moderate pulmonary htn. Aortic Valve There is mild aortic sclerosis.;. No hemodynamically significant valvular aortic stenosis. Pulmonic Valve The pulmonic valve is not well seen, but is grossly normal. Great Vessels The aortic root is normal size. Pericardium/Pleura There is no pericardial effusion. Interpretation Summary The left ventricle is normal in size. There is mild concentric left ventricular hypertrophy. Left ventricular systolic function is severely reduced. Ejection Fraction = 25%. Diastolic dysfunction, Grade II, consistent with elevated left atrial pressure. There is severe global hypokinesis of the left ventricle. The left atrium is mildly dilated. mild to moderate pulmonary htn No hemodynamically significant valvular aortic stenosis. There is no pericardial effusion. MD Jonathan Kelly 04/21/2020 11:12 AM
[2020-04-21] MEDS ORDERED: SODIUM CHLORIDE 250 ML IV PRN (13:00)
[2020-04-21] MEDS: ALBUMIN HUMAN 25% 12.5 GM/50 ML VIAL IVPB SCH ×4 (13:03→14:33)
--- NOTE | 2020-04-21 14:19 | PN ---
Teaching Attending Note Name of Resident: Eduard Ortega ATTENDING PHYSICIAN STATEMENT I saw and evaluated the patient. I reviewed the resident's note and discussed the case with the resident. I agree with the resident's findings and plan as documented. SUBJECTIVE: No fever or chills. has chronic back pain . No SP. SOB has improved . his puppy bit him in his R foot days ago. OBJECTIVE: NAD, awake , alert, cooperative CV: RRR, + JVD . no MRG . episodes of sinus tachy on tele during interview Lungs: fine crackles half way down the lung fileds Abd: soft, NT, ND Ext: 2+ edema on legs and feet . erythema on legs , maybe slightly R > L . NT . nl warmth . small wounds on dorsal R foot , with no discharge. + scabbing on those wounds. eschar on medial R big toe, and R 3rd toe. and L 3rd toe. no discharge. fungal infection among the 3rd, 4th interdigital webs in R foot. ASSESSMENT AND PLAN: 70 y/o man with h/o Afib, Diastolic CHF, DM, ICM, with EF of 30-35 %, PPM, 1st degree AV block, CVA, COPD (on home oxygen 4L) and ESRD on hemodialysis (MWF), who presented with SOB few hours after his HD yesterday. 1- Acute on chronic diastolic CHF exacerbation. Obvious volume overload is responsible for SOB. ? arrhythmias that led to pulm edema after HD. ? compliant with his lasix and meds. PE is unlikely as his SOB can be explained by pulm edema, sat O2 improved with a dose of lasix last night. EKG with no signs of R heart strain ( reviewed) . True patient is sedentary . He is already anticoagulated. and INR is elevated. US is negative for US. PNA is also unlikely clinically with no infitrate on - d/w Dr. Ribera. HD today with ultrafiltration - lasix on non HD days. will give 80 IV - monitor volume status 2- Possible cellulitis in RLE. non purulent. - cont clinda. dose at 300 mg q 8 hours. - treat tinea pedis on R side with topical antifungal 3- H/o DM: Not on any meds as out pt . - check A1c - SSI 4- h/o HTN: hold imdur due to hypotension after HD. 5- H/o A fib: repeat INR today and decide on coumadin 6- Prolonged QTC : had it cliff previous EKG. Not on any meds to prolong it. - monitor. 7- chronci pain : will verify his home meds
[2020-04-21] MEDS: oxyCODONE HCL 5 MG TABLET PO PRN (14:33)
[2020-04-21] MEDS ORDERED: PT OWN MED DRAWER 7, Y5N ONE (15:31)
--- NOTE | 2020-04-21 15:48 | PN ---
Physical Exam: SUBJECTIVE: Patient seen and examined. Feels SOB is improving. C/o back pain (chronic) and pain to b/l feet. OBJECTIVE: Vital Signs Period Temp Pulse Resp BP Sys/Chandra Pulse Ox Last 24 Hr 97.8 F-98.6 F 60-118 13-24 79-124/53-95 94-98 GENERAL: The patient is awake, alert, and fully oriented, in no acute distress. HEENT: NCAT. MMM. No JVD. LUNGS: B/l rhonchi, no accessory muscle use. HEART: Regular rate and rhythm, S1, S2 without murmur, rub or gallop. ABDOMEN: Soft, nontender, nondistended, normoactive bowel sounds, no guarding. EXTREMITIES: 1+ pulses palpated DP/ TP. Right 1st digit necrosed ulcer ~3x4cml; multiple healing wounds to R dorsal foot. Left 1st digit necrosed ulcer. Neg probe to bone. B/l LE's erythematous. Normal temp to touch. NEUROLOGICAL: Cranial nerves II through XII grossly intact. PSYCH: Normal mood, normal affect. SKIN: Midline sternotomy healed scar. Laboratory Results - last 24 hr 04/20/20 04/20/20 04/20/20 18:50 18:50 18:50 WBC 10.7 H RBC 4.18 Hgb 12.3 Hct 38.7 D MCV 92.5 MCH 29.3 MCHC 31.7 L RDW 19.4 H Plt Count 172 MPV 9.0 Absolute Neuts (auto) 9.1 H Neutrophils % 85.1 H Neutrophils % (Manual) 79.0 Band Neutrophils % 7.0 Lymphocytes % 4.3 L D Lymphocytes % (Manual) 6.0 L D Monocytes % 8.7 Monocytes % (Manual) 4 Eosinophils % 1.0 D Eosinophils % (Manual) 0.0 Basophils % 0.9 Basophils % (Manual) 1.0 Myelocytes % (Man) 3 H D Promyelocytes % (Man) Blast Cells % (Manual) Nucleated RBC % 0 Metamyelocytes Hypochromia Platelet Estimate Adequate Polychromasia Poikilocytosis Anisocytosis 1+ Microcytosis Macrocytosis ESR 34 H PT with INR 46.30 H INR 3.87 H VBG pH POC VBG pCO2 POC VBG pO2 VBG HCO3 VBG O2 Sat (Radha) VBG Base Excess Sodium 138 Potassium 3.3 L Chloride 102 Carbon Dioxide 24 Anion Gap 11 BUN 41.8 H Creatinine 3.2 H Est GFR (CKD-EPI)AfAm 21.26 Est GFR (CKD-EPI)NonAf 18.34 POC Glucometer Random Glucose 189 H Calcium 8.3 L Phosphorus Magnesium 1.9 Total Bilirubin 0.2 AST 19 ALT 27 Alkaline Phosphatase 141 H Creatine Kinase 70 Troponin I 0.04 C-Reactive Protein 4.8 H B-Natriuretic Peptide 40346.4 H Total Protein 7.3 Albumin 3.8 Urine Color Urine Appearance Urine pH Ur Specific Cobb Urine Protein Urine Glucose (UA) Urine Ketones Urine Blood Urine Nitrite Urine Bilirubin Urine Urobilinogen Ur Leukocyte Esterase Urine WBC (Auto) Urine RBC (Auto) Urine Casts (Auto) U Pathogenic Cast Auto U Epithel Cells (Auto) Urine Bacteria (Auto) 04/20/20 04/21/20 04/21/20 18:50 00:09 05:30 WBC 10.5 H RBC 3.93 L Hgb 11.4 L Hct 36.2 MCV 92.0 MCH 29.0 MCHC 31.5 L RDW 19.6 H Plt Count 158 MPV 9.6 Absolute Neuts (auto) 10.0 H Neutrophils % 95.5 H Neutrophils % (Manual) 97.0 H Band Neutrophils % 0.0 Lymphocytes % 2.9 L D Lymphocytes % (Manual) 1.0 L D Monocytes % 1.2 L D Monocytes % (Manual) 2 L Eosinophils % 0.0 D Eosinophils % (Manual) 0.0 Basophils % 0.4 Basophils % (Manual) 0.0 Myelocytes % (Man) 0 D Promyelocytes % (Man) 0 Blast Cells % (Manual) 0 Nucleated RBC % 0 Metamyelocytes 0 Hypochromia 1+ Platelet Estimate Adequate Polychromasia 0 Poikilocytosis 1+ Anisocytosis 3+ Microcytosis 1+ Macrocytosis 1+ ESR PT with INR INR VBG pH 7.220 L POC VBG pCO2 66.7 H POC VBG pO2 < 46.9 VBG HCO3 26.7 VBG O2 Sat (Radha) 48.0 L VBG Base Excess -2.3 L Sodium Potassium Chloride Carbon Dioxide Anion Gap BUN Creatinine Est GFR (CKD-EPI)AfAm Est GFR (CKD-EPI)NonAf POC Glucometer Random Glucose Calcium Phosphorus Magnesium Total Bilirubin AST ALT Alkaline Phosphatase Creatine Kinase Troponin I C-Reactive Protein B-Natriuretic Peptide Total Protein Albumin Urine Color Dk yellow Urine Appearance Turbid Urine pH 5.0 Ur Specific Cobb 1.026 Urine Protein 2+ H Urine Glucose (UA) Negative Urine Ketones Trace H Urine Blood 3+ H Urine Nitrite Negative Urine Bilirubin Negative Urine Urobilinogen 1.0 Ur Leukocyte Esterase 1+ H Urine WBC (Auto) 16 Urine RBC (Auto) 5650 Urine Casts (Auto) 2 U Pathogenic Cast Auto U Epithel Cells (Auto) 3 Urine Bacteria (Auto) 6 04/21/20 04/21/20 04/21/20 05:30 05:43 11:30 WBC RBC Hgb Hct MCV MCH MCHC RDW Plt Count MPV Absolute Neuts (auto) Neutrophils % Neutrophils % (Manual) Band Neutrophils % Lymphocytes % Lymphocytes % (Manual) Monocytes % Monocytes % (Manual) Eosinophils % Eosinophils % (Manual) Basophils % Basophils % (Manual) Myelocytes % (Man) Promyelocytes % (Man) Blast Cells % (Manual) Nucleated RBC % Metamyelocytes Hypochromia Platelet Estimate Polychromasia Poikilocytosis Anisocytosis Microcytosis Macrocytosis ESR PT with INR INR VBG pH POC VBG pCO2 POC VBG pO2 VBG HCO3 VBG O2 Sat (Radha) VBG Base Excess Sodium 137 Potassium 4.0 Chloride 104 Carbon Dioxide 24 Anion Gap 10 BUN 52.7 H Creatinine 3.5 H Est GFR (CKD-EPI)AfAm 19.08 Est GFR (CKD-EPI)NonAf 16.46 POC Glucometer 189 Random Glucose 196 H Calcium 8.2 L Phosphorus 3.8 Magnesium 1.8 Total Bilirubin 0.4 AST 17 ALT 25 Alkaline Phosphatase 123 H Creatine Kinase Troponin I 0.02 C-Reactive Protein B-Natriuretic Peptide Total Protein 6.8 Albumin 3.4 Urine Color Urine Appearance Urine pH Ur Specific Cobb Urine Protein Urine Glucose (UA) Urine Ketones Urine Blood Urine Nitrite Urine Bilirubin Urine Urobilinogen Ur Leukocyte Esterase Urine WBC (Auto) Urine RBC (Auto) Urine Casts (Auto) U Pathogenic Cast Auto U Epithel Cells (Auto) Urine Bacteria (Auto) 04/21/20 12:23 WBC RBC Hgb Hct MCV MCH MCHC RDW Plt Count MPV Absolute Neuts (auto) Neutrophils % Neutrophils % (Manual) Band Neutrophils % Lymphocytes % Lymphocytes % (Manual) Monocytes % Monocytes % (Manual) Eosinophils % Eosinophils % (Manual) Basophils % Basophils % (Manual) Myelocytes % (Man) Promyelocytes % (Man) Blast Cells % (Manual) Nucleated RBC % Metamyelocytes Hypochromia Platelet Estimate Polychromasia Poikilocytosis Anisocytosis Microcytosis Macrocytosis ESR PT with INR INR VBG pH POC VBG pCO2 POC VBG pO2 VBG HCO3 VBG O2 Sat (Radha) VBG Base Excess Sodium Potassium Chloride Carbon Dioxide Anion Gap BUN Creatinine Est GFR (CKD-EPI)AfAm Est GFR (CKD-EPI)NonAf POC Glucometer 197 Random Glucose Calcium Phosphorus Magnesium Total Bilirubin AST ALT Alkaline Phosphatase Creatine Kinase Troponin I C-Reactive Protein B-Natriuretic Peptide Total Protein Albumin Urine Color Urine Appearance Urine pH Ur Specific Cobb Urine Protein Urine Glucose (UA) Urine Ketones Urine Blood Urine Nitrite Urine Bilirubin Urine Urobilinogen Ur Leukocyte Esterase Urine WBC (Auto) Urine RBC (Auto) Urine Casts (Auto) U Pathogenic Cast Auto U Epithel Cells (Auto) Urine Bacteria (Auto) Active Medications Generic Name Dose Route Start Last Admin Trade Name Freq PRN Reason Stop Dose Admin Ferrous Sulfate 325 mg 04/21/20 10:00 04/21/20 10:21 Feosol - PO 325 mg DAILY RADHA Administration Folic Acid 1 mg 04/21/20 10:00 04/21/20 10:21 Folic Acid - PO 1 mg DAILY RADHA Administration Sodium Chloride 250 mls @ 3,000 mls/hr 04/21/20 13:00 Normal Saline - IV 04/22/20 12:59 PRN PRN Hypotension during Dialysis Clindamycin Phosphate 300 mg in 50 mls @ 100 mls/hr 04/21/20 18:00 Cleocin 300 Mg Premix Ivpb IVPB Q8H-IV RADHA Protocol Insulin Aspart 1 vial 04/21/20 07:00 04/21/20 12:25 Novolog Vial Sliding Scale - SQ 2 units ACHS RADHA Administration Protocol Morphine Sulfate 30 mg 04/21/20 14:04 Ms Contin - PO BID RADHA Nystatin 1 applic 04/21/20 14:00 Mycostatin Cream - TP BID RADHA Oxycodone HCl 20 mg 04/21/20 14:02 04/21/20 14:33 Roxicodone - PO 20 mg Q6H PRN Administration PAIN LEVEL 7 - 10 Pantoprazole Sodium 40 mg 04/21/20 10:00 04/21/20 10:21 Protonix - PO 40 mg DAILY RADHA Administration Polyethylene Glycol 17 gm 04/21/20 10:00 04/21/20 10:21 Miralax (For Daily Use) - PO 17 gm BID RADHA Administration Rosuvastatin Calcium 10 mg 04/21/20 22:00 Crestor - PO HS RADHA ASSESSMENT/PLAN: 70 y.o. M PMH A-fib, HFrEF (EF 30-35%, Global LV Hypokinesis), CAD (S/P CABG), Ischemic Cardiomyopathy s/p PPM, 1st degree AV Block, CVA, COPD (on 4L Home O2), ESRD on HD (Makes minimal urine, on HD MWF) IDDM, presented w/ shortness of breath #Acute on chronic diastolic CHF exacerbation -S/p 1 dose 80mg IV lasix last night w/ some improvement of SOB -EKG: no ischemic changes. No signs of R heart strain -LE U/S negative for DVT- PE unlikely -CXR: no acute disease. cardiomegaly -renal following: for HD today. continue with lasix on non-HD days -echo 04/21: 25 % EF. LVH. Decr systolic function. Grade II diastolic dysfunction. seere hypokinesis. LA dilation. Mild/ mod pulm HTN -monitor Is & Os -daily weights #RLE wound, LLE wound, possible cellulitis -continue IV abx: clindamycin 300mg q8h x 5 days -seen by podiatry: rec santyl daily to b/l foot ulcers. -Dr. Carson to review recent LE arterial studies performed as outpatient 1 week ago -R foot XR negative for fracture or OM -f/u blood cultures -Nystatin for toes #Supratherapeutic INR -INR 3.87 on admission -warfarin held -f/u repeat INR #A-fib -f/u repeat inr; coumadin held 2/2 supratherapeutic inr #HTN -on Imdur 30mg HS at home; holding post HD in setting of hypotension #Chronic back pain -home morphine ER 30mg BID, oxycodone 20mg q4-6hrs PRN-- confirmed prescribed by Dr. Isbell-- reinstated #CAD -Patient previously on ASA/Plavix given stent hx however was d/c'd end 2018 2/2 GIB (gastric ulcer, erosions, anemia) #FEN -no standing fluids -trend & replete lytes prn -renal diet #PPX -SCDs for dvt ppx #Dispo ctm telemetry Visit type - Emergency Visit Emergency Visit: No - New Patient This patient is new to me today: Yes Date on this admission: 04/21/20 - Critical Care Critical Care patient: No ATTENDING PHYSICIAN STATEMENT I saw and evaluated the patient. I reviewed the resident's note and discussed the case with the resident. I agree with the resident's findings and plan as documented. SUBJECTIVE: OBJECTIVE: ASSESSMENT AND PLAN:
--- NOTE | 2020-04-21 15:49 | CONSULT ---
Consult - text type - Consultation Consultation Note: Podiatry Consultation: 70 year old diabetic male presented for admission to the hospital after sustaining shortness of breath after dialysis requiring admission to emergency room. Patient was seen last week in the wound healing center last week, using santyl on the diabetic foot ulcers. He reports pain to both feet that is persistent. He had healed ulcers in the past that have since recurred. Currently afebrile. PMHx: Afib, Diastolic CHF, DM, ICM, with EF of 30-35 %, PPM, 1st degree AV block, CVA, COPD (on home oxygen 4L) and ESRD on hemodialysis (MWF) Meds: noted ALL: NKMA ZION: Pedal pulses nonpalpable, TG wnl, CFT delayed to 5 seconds to all digits bilaterally. There are necrotic changes noted to the hallux of the right foot and second digit of the left foot. There is a right dorsal hallux fibronecrotic ulcer, no bone exposed, no purulent drainage, no fluctuance, no streaking ascending cellulitis, no signs of acute infection. There is a left second digit dorsal necrotic ulcer, no exposed bone, no purulent drainage, no fluctuance, no streaking ascending cellulitis, no signs of active infection. Moderate tenderness to palpation of bilateral feet. 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 IV abx per infectious disease 2. Recommend santyl daily to both foot ulcers 3. Patient had navix arterial studies performed in wound healing center last week. Will have Dr. Carson review studies. 4. Rx xrays bilateral feet 5. Will follow. Thank you for the courtesy of this consultation. Nadege Velez DPM
[2020-04-21 16:23] LABS: PROTHROMBIN TIME (PATIENT) 51.4 SEC (9.7-13.0)
[2020-04-21] MEDS: NYSTATIN 100,000 UNIT/GM TOPICAL CREAM 15 GM TUBE TP SCH ×2 (16:35→21:42)
[2020-04-21 16:50] LABS: INR 4.29 (0.83-1.09)
[2020-04-21] MEDS: CLINDAMYCIN 300 MG PREMIX IVPB 300 MG/50 ML BAG IVPB SCH (18:00)
[2020-04-21] MEDS ORDERED: ACETAMINOPHEN 325 MG TABLET (FP) PO ONE (18:22)
[2020-04-21] MEDS ORDERED: METOCLOPRAMIDE HCL 10 MG TABLET (FP) PO ONE (18:33)
[2020-04-21] MEDS: ROSUVASTATIN CA 10 MG TABLET (FP) PO SCH (21:39)
[2020-04-21] MEDS: morphine SO4 SUSTAINED ACTING 30 MG TABLET.SA PO SCH (21:39)
[2020-04-21] MEDS ORDERED: morphine SO4 SUSTAINED ACTING 30 MG TABLET.SA PO SCH (22:00)
[2020-04-22] MEDS: oxyCODONE HCL 5 MG TABLET PO PRN ×4 (02:27→20:23)
[2020-04-22] MEDS ORDERED: PT OWN MED DRAWER 7, Y5N ONE ×3 (02:55→17:17)
[2020-04-22] MEDS: CLINDAMYCIN 300 MG PREMIX IVPB 300 MG/50 ML BAG IVPB SCH ×3 (03:00→17:43)
[2020-04-22] MEDS: INSULIN SLIDING SCALE (NOVOLOG) 1 VIAL SQ SCH ×4 (06:17→22:51)
[2020-04-22 07:24] LABS: HEMATOCRIT 35.4 % (35.4-49); MCHC 31.2 g/dl (32.0-35.9); MEAN PLT VOLUME 9.5 fl (7.5-11.1); PLATELET COUNT 158 K/MM3 (134-434); RDW 19.8 % (11.9-15.9); WHITE BLOOD COUNT 11.6 K/mm3 (4.0-10.0)
[2020-04-22 07:26] LABS: ALBUMIN 3.6 g/dl (3.4-5.0); BILIRUBIN,TOTAL 0.5 mg/dL (0.2-1); BLOOD UREA NITROGEN 41.9 mg/dL (7-18); CALCIUM 8.4 mg/dL (8.5-10.1); CREATININE 2.9 mg/dL (0.55-1.3); MAGNESIUM 1.7 mg/dL (1.8-2.4); PHOSPHOROUS 3.8 mg/dL (2.5-4.9); POTASSIUM 3.9 mmol/L (3.5-5.1); TOT PROT 6.6 g/dl (6.4-8.2)
[2020-04-22] MEDS ORDERED: PROCHLORPERAZINE MALEATE 5 MG TABLET PO ONE (09:15)
[2020-04-22] MEDS ORDERED: ACETAMINOPHEN 325 MG TABLET (FP) PO ONE (09:22)
[2020-04-22] MEDS: FOLIC ACID 1 MG TABLET (FP) PO SCH (09:25)
[2020-04-22] MEDS: PANTOPRAZOLE 40 MG TABLET PO SCH (09:25)
[2020-04-22] MEDS: morphine SO4 SUSTAINED ACTING 30 MG TABLET.SA PO SCH ×2 (09:26→21:24)
[2020-04-22] MEDS: NYSTATIN 100,000 UNIT/GM TOPICAL CREAM 15 GM TUBE TP SCH ×2 (09:27→21:25)
[2020-04-22] MEDS: FERROUS SO4 325 MG TABLET (FP) PO SCH (09:27)
[2020-04-22] MEDS: POLYETHYLENE GLYCOL 3350 119 GM BTL PO SCH ×2 (09:27→21:25)
--- NOTE | 2020-04-22 10:17 | PN ---
Progress Note (short form) - Note Progress Note: Podiatry F/U: Seen/evaluated at bedside, currently vomitting. Patient states that he has had vomitting episode since last evening. Denies fever/chills. Afebrile. ZION: Pedal pulses nonpalpable, TG wnl, CFT five seconds to all digits. On the right foot, there is necrotic patch on the dorsal aspect of the hallux IPJ. There is no bone exposed, no purulence, no fluctuance, no cellulitis, no signs of infection. On the left foot, there is a necrotic patch dorsal aspect of the PIPJ, no exposed bone, no purulence, no fluctuance, no streaking cellulitis, no signs of infection. Moderate tenderness to the foot bilaterally. Imp: 70 year old diabetic PVD male with right hallux gangrene, left second digit gangrene 1. IV abx per ID 2. Continue local care 3. Vascular consultation. Patient had vascular studies performed in wound healing center about 2 weeks ago. 4. Likely will treat conservatively. No signs of overt infection in the foot. 5. .Will follow Nadege Velez DPM
[2020-04-22] MEDS ORDERED: SODIUM CHLORIDE 250 ML IV PRN (10:52)
[2020-04-22] MEDS ORDERED: ALBUMIN HUMAN 25% 12.5 GM/50 ML VIAL IVPB SCH (11:00)
[2020-04-22] MEDS: COLLAGENASE CLOSTRIDIUM HIST. 30 GRAMS TUBE TP SCH (12:54)
--- NOTE | 2020-04-22 13:27 | PN ---
Progress Note, Physician History of Present Illness: Pt seen and examined at bedside. He feels that his breathing is better today. - Current Medication List Current Medications: Active Medications Collagenase (Santyl -) 1 applic TP DAILY [facility]; Protocol Last Admin: 04/22/20 12:54 Dose: 1 applic Documented by: Ferrous Sulfate (Feosol -) 325 mg PO DAILY [facility] Last Admin: 04/22/20 09:27 Dose: 325 mg Documented by: Folic Acid (Folic Acid -) 1 mg PO DAILY [facility] Last Admin: 04/22/20 09:25 Dose: 1 mg Documented by: Clindamycin Phosphate (Cleocin 300 Mg Premix Ivpb) 300 mg in 50 mls @ 100 mls/h r IVPB Q8H-IV [facility]; Protocol Last Admin: 04/22/20 09:28 Dose: 100 mls/hr Documented by: Sodium Chloride (Normal Saline -) 250 mls @ 3,000 mls/hr IV PRN PRN PRN Reason: Hypotension during Dialysis Stop: 04/23/20 10:51 Insulin Aspart (Novolog Vial Sliding Scale -) 1 vial SQ ACHS [facility]; Protocol Last Admin: 04/22/20 11:48 Dose: Not Given Documented by: Morphine Sulfate (Ms Contin -) 30 mg PO BID [facility] Last Admin: 04/22/20 09:26 Dose: 30 mg Documented by: Nystatin (Mycostatin Cream -) 1 applic TP BID [facility] Last Admin: 04/22/20 09:27 Dose: 1 applic Documented by: Oxycodone HCl (Roxicodone -) 20 mg PO Q6H PRN PRN Reason: PAIN LEVEL 7 - 10 Last Admin: 04/22/20 08:33 Dose: 20 mg Documented by: Pantoprazole Sodium (Protonix -) 40 mg PO DAILY [facility] Last Admin: 04/22/20 09:25 Dose: 40 mg Documented by: Polyethylene Glycol (Miralax (For Daily Use) -) 17 gm PO BID [facility] Last Admin: 04/22/20 09:27 Dose: 17 gm Documented by: Prochlorperazine Maleate (Compazine -) 5 mg PO Q6H PRN PRN Reason: NAUSEA AND/OR VOMITING Rosuvastatin Calcium (Crestor -) 10 mg PO HS [facility] Last Admin: 04/21/20 21:39 Dose: 10 mg Documented by: - Objective Vital Signs: Vital Signs Temperature 98 F 06/24/20 10:00 Pulse Rate 74 04/22/20 12:02 Respiratory Rate 18 04/22/20 12:02 Blood Pressure 105/67 04/22/20 12:02 O2 Sat by Pulse Oximetry (%) 99 04/21/20 21:00 Constitutional: Yes: Calm Eyes: Yes: Conjunctiva Clear HENT: Yes: Atraumatic Neck: Yes: Supple Cardiovascular: Yes: S1, S2 Respiratory: Yes: On Nasal O2 Gastrointestinal: Yes: Soft Genitourinary: Yes: WNL Musculoskeletal: Yes: WNL Edema: Yes Edema: LLE: 1+, RLE: 1+ Neurological: Yes: Oriented Psychiatric: Yes: Oriented Labs: CBC, BMP 04/22/20 05:20 04/22/20 05:20 INR, PTT INR 4.29 (0.83-1.09) H* 04/21/20 15:35 Problem List - Problems (1) ESRD (end stage renal disease) Code(s): N18.6 - END STAGE RENAL DISEASE (2) COPD (chronic obstructive pulmonary disease) Code(s): J44.9 - CHRONIC OBSTRUCTIVE PULMONARY DISEASE, UNSPECIFIED Assessment/Plan Current Medications Generic Name Dose Route Start Last Admin Trade Name Freq PRN Reason Stop Dose Admin Collagenase 1 applic 04/22/20 10:00 04/22/20 12:54 Santyl - TP 1 applic DAILY RADHA Administration Protocol Ferrous Sulfate 325 mg 04/21/20 10:00 04/22/20 09:27 Feosol - PO 325 mg DAILY RADHA Administration Folic Acid 1 mg 04/21/20 10:00 04/22/20 09:25 Folic Acid - PO 1 mg DAILY RADHA Administration Clindamycin Phosphate 300 mg in 50 mls @ 100 mls/hr 04/21/20 18:00 04/22/20 09:28 Cleocin 300 Mg Premix Ivpb IVPB 100 mls/hr Q8H-IV RADHA Administration Protocol Sodium Chloride 250 mls @ 3,000 mls/hr 04/22/20 10:52 Normal Saline - IV 04/23/20 10:51 PRN PRN Hypotension during Dialysis Insulin Aspart 1 vial 04/21/20 07:00 04/22/20 11:48 Novolog Vial Sliding Scale - SQ Not Given ACHS RADHA Protocol Morphine Sulfate 30 mg 04/21/20 14:04 04/22/20 09:26 Ms Contin - PO 30 mg BID RADHA Administration Nystatin 1 applic 04/21/20 14:00 04/22/20 09:27 Mycostatin Cream - TP 1 applic BID RADHA Administration Oxycodone HCl 20 mg 04/21/20 14:02 04/22/20 08:33 Roxicodone - PO 20 mg Q6H PRN Administration PAIN LEVEL 7 - 10 Pantoprazole Sodium 40 mg 04/21/20 10:00 04/22/20 09:25 Protonix - PO 40 mg DAILY RADHA Administration Polyethylene Glycol 17 gm 04/21/20 10:00 04/22/20 09:27 Miralax (For Daily Use) - PO 17 gm BID RADHA Administration Prochlorperazine Maleate 5 mg 04/22/20 13:00 Compazine - PO Q6H PRN NAUSEA AND/OR VOMITING Rosuvastatin Calcium 10 mg 04/21/20 22:00 04/21/20 21:39 Crestor - PO 10 mg HS RADHA Administration Impression 1. ESRD 2. shortness of breath 3. copd 4. chf 5. positive anti-histone ab 6. fluid overload 7. cva 8. anemia Plan - will dialyze again today for UF - lasix on non HD days - repeat labs in am - monitor bp - renal diet - follow cultures - cont ICU care - monitor pulse ox
--- NOTE | 2020-04-22 16:31 | PN ---
Physical Exam: SUBJECTIVE: Patient seen and examined. SOB improving. HD for UF completed today pt tolerated well. OBJECTIVE: Vital Signs Period Temp Pulse Resp BP Sys/Chandra Pulse Ox Last 24 Hr 98 F-98.3 F 68-106 15-18 96-140/62-97 99 GENERAL: aaox3, in no acute distress. HEENT: NCAT. MMM. No JVD. LUNGS: B/l rhonchi, no accessory muscle use. HEART: Regular rate and rhythm, S1, S2 without murmur, rub or gallop. ABDOMEN: Soft, nontender, nondistended, normoactive bowel sounds, no guarding. EXTREMITIES: 1+ pulses palpated DP/ TP. Right 1st digit ulcer ~3x4cm; multiple healing wounds to R dorsal foot. Left 2nd digit ulcer. LE erythema improving. Normal temp to touch. 1+ pitting edema b/l LE. NEUROLOGICAL: Cranial nerves II through XII grossly intact. PSYCH: Normal mood, normal affect. SKIN: Midline sternotomy healed scar. R permacath in place c/d/i. Laboratory Results - last 24 hr 04/20/20 04/21/20 04/21/20 21:05 15:35 17:00 WBC RBC Hgb Hct MCV MCH MCHC RDW Plt Count MPV INR 4.29 H* Sodium Potassium Chloride Carbon Dioxide Anion Gap BUN Creatinine Est GFR (CKD-EPI)AfAm Est GFR (CKD-EPI)NonAf POC Glucometer 190 Random Glucose Hemoglobin A1c % Calcium Phosphorus Magnesium Total Bilirubin AST ALT Alkaline Phosphatase Total Protein Albumin COVID-19 (DANIELA) Not detected 04/21/20 04/22/20 04/22/20 21:38 05:20 05:20 WBC 11.6 H RBC 3.80 L Hgb 11.0 L Hct 35.4 MCV 93.0 MCH 29.0 MCHC 31.2 L RDW 19.8 H Plt Count 158 MPV 9.5 INR Sodium Potassium Chloride Carbon Dioxide Anion Gap BUN Creatinine Est GFR (CKD-EPI)AfAm Est GFR (CKD-EPI)NonAf POC Glucometer 121 Random Glucose Hemoglobin A1c % 7.0 H Calcium Phosphorus Magnesium Total Bilirubin AST ALT Alkaline Phosphatase Total Protein Albumin COVID-19 (DANIELA) 04/22/20 04/22/20 04/22/20 05:20 06:09 11:37 WBC RBC Hgb Hct MCV MCH MCHC RDW Plt Count MPV INR Sodium 138 Potassium 3.9 Chloride 101 Carbon Dioxide 32 Anion Gap 6 L BUN 41.9 H Creatinine 2.9 H Est GFR (CKD-EPI)AfAm 23.95 Est GFR (CKD-EPI)NonAf 20.66 POC Glucometer 118 139 Random Glucose 119 H Hemoglobin A1c % Calcium 8.4 L Phosphorus 3.8 Magnesium 1.7 L Total Bilirubin 0.5 AST 15 ALT 26 Alkaline Phosphatase 99 Total Protein 6.6 Albumin 3.6 COVID-19 (DANIELA) Active Medications Generic Name Dose Route Start Last Admin Trade Name Freq PRN Reason Stop Dose Admin Collagenase 1 applic 04/22/20 10:00 04/22/20 12:54 Santyl - TP 1 applic DAILY RADHA Administration Protocol Ferrous Sulfate 325 mg 04/21/20 10:00 04/22/20 09:27 Feosol - PO 325 mg DAILY RADHA Administration Folic Acid 1 mg 04/21/20 10:00 04/22/20 09:25 Folic Acid - PO 1 mg DAILY RADHA Administration Clindamycin Phosphate 300 mg in 50 mls @ 100 mls/hr 04/21/20 18:00 04/22/20 09:28 Cleocin 300 Mg Premix Ivpb IVPB 100 mls/hr Q8H-IV RADHA Administration Protocol Sodium Chloride 250 mls @ 3,000 mls/hr 04/22/20 10:52 Normal Saline - IV 04/23/20 10:51 PRN PRN Hypotension during Dialysis Insulin Aspart 1 vial 04/21/20 07:00 04/22/20 11:48 Novolog Vial Sliding Scale - SQ Not Given ACHS RADHA Protocol Morphine Sulfate 30 mg 04/21/20 14:04 04/22/20 09:26 Ms Contin - PO 30 mg BID RADHA Administration Nystatin 1 applic 04/21/20 14:00 04/22/20 09:27 Mycostatin Cream - TP 1 applic BID RADHA Administration Oxycodone HCl 20 mg 04/21/20 14:02 04/22/20 15:17 Roxicodone - PO 20 mg Q6H PRN Administration PAIN LEVEL 7 - 10 Pantoprazole Sodium 40 mg 04/21/20 10:00 04/22/20 09:25 Protonix - PO 40 mg DAILY RADHA Administration Polyethylene Glycol 17 gm 04/21/20 10:00 06/24/20 09:27 Miralax (For Daily Use) - PO 17 gm BID RADHA Administration Prochlorperazine Maleate 5 mg 04/22/20 13:00 Compazine - PO Q6H PRN NAUSEA AND/OR VOMITING Rosuvastatin Calcium 10 mg 04/21/20 22:00 04/21/20 21:39 Crestor - PO 10 mg HS RADHA Administration ASSESSMENT/PLAN: 70 y.o. M PMH A-fib, HFrEF (EF 30-35%, Global LV Hypokinesis), CAD (S/P CABG), Ischemic Cardiomyopathy s/p PPM, 1st degree AV Block, CVA, COPD (on 4L Home O2), ESRD on HD (Makes minimal urine, on HD MWF) IDDM, presented w/ shortness of breath #Acute on chronic diastolic CHF exacerbation -continue lasix on non-HD days -HD for UF done today -LE U/S negative for DVT- PE unlikely -CXR: no acute disease. cardiomegaly -renal following -echo 04/21: 25 % EF. LVH. Decr systolic function. Grade II diastolic dysfunc tion. seere hypokinesis. LA dilation. Mild/ mod pulm HTN -monitor Is & Os -daily weights #RLE wound, LLE wound, possible cellulitis -continue IV abx: clindamycin 300mg q8h x 5 days- started 04/21 -seen by podiatry: olga valenzuela daily to b/l foot ulcers. no acute surgical intervention at this time -R foot XR negative for fracture or OM -blood cultures NGTD -Nystatin for toes #Supratherapeutic INR -INR 3.87 on admission- 4.29 yesterday- f/u AM INR -warfarin held -f/u repeat INR #A-fib -f/u AM inr; coumadin held 2/2 supratherapeutic inr #HTN -on Imdur 30mg HS at home; holding post HD in setting of hypotension #Chronic back pain -home morphine ER 30mg BID, oxycodone 20mg q4-6hrs PRN-- confirmed prescribed by Dr. Isbell-- reinstated #CAD -Patient previously on ASA/Plavix given stent hx however was d/c'd end of 2018 2/2 GIB (gastric ulcer, erosions, anemia) #FEN -no standing fluids -trend & replete lytes prn -renal diet #PPX -SCDs for dvt ppx #Dispo ctm telemetry Visit type - Emergency Visit Emergency Visit: No - New Patient This patient is new to me today: No - Critical Care Critical Care patient: No ATTENDING PHYSICIAN STATEMENT I saw and evaluated the patient. I reviewed the resident's note and discussed the case with the resident. I agree with the resident's findings and plan as documented. SUBJECTIVE: OBJECTIVE: ASSESSMENT AND PLAN:
--- NOTE | 2020-04-22 18:07 | PN ---
Teaching Attending Note Name of Resident: Neha Michelle ATTENDING PHYSICIAN STATEMENT I saw and evaluated the patient. I reviewed the resident's note and discussed the case with the resident. I agree with the resident's findings and plan as documented. SUBJECTIVE: no pain , no fever or chills. no OSB . has pain in back ( chronic ) OBJECTIVE: OBJECTIVE: NAD, awake , alert, cooperative CV: RRR, + JVD . no MRG Lungs: clear lungs today Abd: soft, NT, ND Ext: 1+ edema on legs and feet. erythema on legs is much better . NT . nl warmth . small wounds on dorsal R foot , with no discharge. + scabbing on those wounds. eschar on medial R big toe, and R 3rd toe. and L 3rd toe. no discharge. fungal infection among the 3rd, 4th interdigital webs in R foot. DP 1+ bilaterally ASSESSMENT AND PLAN: 70 y/o man with h/o Afib, Diastolic CHF, DM, ICM, with EF of 30-35 %, PPM, 1st degree AV block, CVA, COPD (on home oxygen 4L) and ESRD on hemodialysis (MWF), who presented with SOB few hours after his HD yesterday. 1- Acute on chronic diastolic CHF exacerbation. volume status improved - HD today - LAsix on NOn HD days 2- Possible cellulitis in RLE. non purulent. - cont clinda. day 2 - treat tinea pedis on R side with topical antifungal 3- H/o DM: Not on any meds as out pt . -A1c 7 - SSI here 4- h/o HTN: resume imdur 5- H/o A fib: repeat INR in am . cont to hold for now. No signs of bleeding 6- Prolonged QTC : - monitor. 7- chronic pain : cont carola emeds 8- possible PVD. vascular consult pending . out pt doppler is not read. HLOC
[2020-04-22] MEDS: ACETAMINOPHEN 325 MG TABLET (FP) PO PRN (18:24)
[2020-04-22] MEDS: ISOSORBIDE MONONITRATE 30 MG TAB.SR.24H (FP) PO SCH (21:24)
[2020-04-22] MEDS: ROSUVASTATIN CA 10 MG TABLET (FP) PO SCH (21:25)
[2020-04-22] MEDS: PROCHLORPERAZINE MALEATE 5 MG TABLET PO PRN (23:08)
[2020-04-22] MEDS ORDERED: MELATONIN 5 MG TABLETS PO ONE (23:28)
[2020-04-23] MEDS: CLINDAMYCIN 300 MG PREMIX IVPB 300 MG/50 ML BAG IVPB SCH ×2 (01:40→10:07)
[2020-04-23] MEDS: oxyCODONE HCL 5 MG TABLET PO PRN ×4 (02:30→23:33)
[2020-04-23] MEDS: INSULIN SLIDING SCALE (NOVOLOG) 1 VIAL SQ SCH ×4 (06:00→21:08)
[2020-04-23 07:13] LABS: INR 2.27 (0.83-1.09)
[2020-04-23 07:18] LABS: MCH 28.9 pg (25.7-33.7); MCHC 31.4 g/dl (32.0-35.9); MEAN PLT VOLUME 9.3 fl (7.5-11.1); PLATELET COUNT 165 K/MM3 (134-434); RBC 3.81 M/mm3 (4.00-5.60); RDW 19.8 % (11.9-15.9); WHITE BLOOD COUNT 13.3 K/mm3 (4.0-10.0)
[2020-04-23 07:43] LABS: POTASSIUM 3.7 mmol/L (3.5-5.1)
[2020-04-23 07:50] LABS: ALBUMIN 3.6 g/dl (3.4-5.0); BILIRUBIN,TOTAL 0.8 mg/dL (0.2-1); BLOOD UREA NITROGEN 34.8 mg/dL (7-18); CALCIUM 8.6 mg/dL (8.5-10.1); CREATININE 2.3 mg/dL (0.55-1.3); TOT PROT 6.5 g/dl (6.4-8.2)
[2020-04-23] MEDS: morphine SO4 SUSTAINED ACTING 30 MG TABLET.SA PO SCH ×2 (09:57→21:07)
[2020-04-23] MEDS: FERROUS SO4 325 MG TABLET (FP) PO SCH (09:58)
[2020-04-23] MEDS: FOLIC ACID 1 MG TABLET (FP) PO SCH (09:58)
[2020-04-23] MEDS: POLYETHYLENE GLYCOL 3350 119 GM BTL PO SCH ×2 (09:59→21:07)
[2020-04-23] MEDS: PANTOPRAZOLE 40 MG TABLET PO SCH (09:59)
[2020-04-23] MEDS: NYSTATIN 100,000 UNIT/GM TOPICAL CREAM 15 GM TUBE TP SCH ×2 (09:59→21:08)
[2020-04-23] MEDS ORDERED: PT OWN MED DRAWER 7, Y5N ONE ×2 (10:06→16:04)
[2020-04-23] MEDS: ACETAMINOPHEN 325 MG TABLET (FP) PO PRN (11:35)
[2020-04-23] MEDS: COLLAGENASE CLOSTRIDIUM HIST. 30 GRAMS TUBE TP SCH (13:22)
[2020-04-23] MEDS: AMPICILLIN NA/SULBACTAM NA 3 GM in SODIUM CHLORIDE 100 ML IVPB SCH ×2 (16:06→21:12)
--- NOTE | 2020-04-23 16:06 | PN ---
Physical Exam: SUBJECTIVE: Patient seen and examined at bedside. No acute events overnight. Pt complaining of nausea and vomiting. Also complains of neck, back and b/l LE pain. Denies chest pain, sob, abd pain. Otherwise no other complaints. OBJECTIVE: Vital Signs Period Temp Pulse Resp BP Sys/Chandra Pulse Ox Last 24 Hr 97.8 F-99 F 70-85 18-20 133-153/57-75 96-96 GENERAL: aaox3, in no acute distress. HEENT: NCAT. MMM. No JVD. LUNGS: B/l rhonchi, no accessory muscle use. HEART: Regular rate and rhythm, S1, S2 without murmur, rub or gallop. ABDOMEN: Soft, nontender, nondistended, normoactive bowel sounds, no guarding. EXTREMITIES: 1+ pulses palpated DP/ TP. Right 1st digit ulcer ~3x4cm; multiple healing wounds to R dorsal foot. Left 2nd digit ulcer. LE erythema improving. Normal temp to touch. 1+ pitting edema b/l LE. NEUROLOGICAL: Cranial nerves II through XII grossly intact. PSYCH: Normal mood, normal affect. SKIN: Midline sternotomy healed scar. R permacath in place c/d/i. Laboratory Results - last 24 hr 04/22/20 04/22/20 04/22/20 11:30 18:32 22:07 WBC RBC Hgb Hct MCV MCH MCHC RDW Plt Count MPV PT with INR INR Sodium Potassium Chloride Carbon Dioxide Anion Gap BUN Creatinine Est GFR (CKD-EPI)AfAm Est GFR (CKD-EPI)NonAf POC Glucometer 154 115 Random Glucose Calcium Total Bilirubin AST ALT Alkaline Phosphatase Total Protein Albumin Hep Bs Antigen Negative Hep C Ab Diagnostic <0.1 04/23/20 04/23/20 04/23/20 05:40 05:40 05:40 WBC 13.3 H RBC 3.81 L Hgb 11.0 L Hct 35.0 L MCV 92.0 MCH 28.9 MCHC 31.4 L RDW 19.8 H Plt Count 165 MPV 9.3 PT with INR 27.00 H INR 2.27 H Sodium 136 Potassium 3.7 Chloride 101 Carbon Dioxide 29 Anion Gap 6 L BUN 34.8 H Creatinine 2.3 H Est GFR (CKD-EPI)AfAm 31.70 Est GFR (CKD-EPI)NonAf 27.35 POC Glucometer Random Glucose 124 H Calcium 8.6 Total Bilirubin 0.8 AST 20 ALT 36 Alkaline Phosphatase 100 Total Protein 6.5 Albumin 3.6 Hep Bs Antigen Hep C Ab Diagnostic 04/23/20 04/23/20 05:53 11:32 WBC RBC Hgb Hct MCV MCH MCHC RDW Plt Count MPV PT with INR INR Sodium Potassium Chloride Carbon Dioxide Anion Gap BUN Creatinine Est GFR (CKD-EPI)AfAm Est GFR (CKD-EPI)NonAf POC Glucometer 113 164 Random Glucose Calcium Total Bilirubin AST ALT Alkaline Phosphatase Total Protein Albumin Hep Bs Antigen Hep C Ab Diagnostic Active Medications Generic Name Dose Route Start Last Admin Trade Name Freq PRN Reason Stop Dose Admin Acetaminophen 650 mg 04/22/20 17:30 04/23/20 11:35 Tylenol - PO 650 mg Q6H PRN Administration Fever Or Pain Collagenase 1 applic 04/22/20 10:00 04/23/20 13:22 Santyl - TP 1 applic DAILY [facility] Administration Protocol Ferrous Sulfate 325 mg 04/21/20 10:00 04/23/20 09:58 Feosol - PO 325 mg DAILY [facility] Administration Folic Acid 1 mg 04/21/20 10:00 04/23/20 09:58 Folic Acid - PO 1 mg DAILY [facility] Administration Ampicillin Sodium/Sulbactam 100 mls @ 200 mls/hr 04/23/20 15:00 Sodium 3 gm/ Sodium Chloride IVPB Q6H-IV [facility] Insulin Aspart 1 vial 04/21/20 07:00 04/23/20 11:34 Novolog Vial Sliding Scale - SQ 2 units ACHS [facility] Administration Protocol Isosorbide Mononitrate 30 mg 04/22/20 22:00 04/22/20 21:24 Imdur - PO 30 mg HS [facility] Administration Morphine Sulfate 30 mg 04/21/20 14:04 04/23/20 09:57 Ms Contin - PO 30 mg BID [facility] Administration Nystatin 1 applic 04/21/20 14:00 04/23/20 09:59 Mycostatin Cream - TP 1 applic BID [facility] Administration Oxycodone HCl 20 mg 04/23/20 11:34 04/23/20 15:26 Roxicodone - PO 20 mg Q4H PRN Administration PAIN LEVEL 7 - 10 Pantoprazole Sodium 40 mg 04/21/20 10:00 04/23/20 09:59 Protonix - PO 40 mg DAILY [facility] Administration Polyethylene Glycol 17 gm 04/21/20 10:00 04/23/20 09:59 Miralax (For Daily Use) - PO Not Given BID [facility] Prochlorperazine Maleate 5 mg 04/22/20 13:00 04/22/20 23:08 Compazine - PO 5 mg Q6H PRN Administration NAUSEA AND/OR VOMITING Rosuvastatin Calcium 10 mg 04/21/20 22:00 04/22/20 21:25 Crestor - PO 10 mg HS [facility] Administration ASSESSMENT/PLAN: 70M PMH A-fib, HFrEF (EF 30-35%, Global LV Hypokinesis), CAD (S/P CABG), Ischemic Cardiomyopathy s/p PPM, 1st degree AV Block, CVA, COPD (on 4L Home O2), ESRD on HD (Makes minimal urine, on HD MWF) IDDM, presented w/ shortness of breath #Acute on Chronic Diastolic CHF exacerbation -continue lasix on non-HD days; 1 dose Lasix 80 given today -LE U/S negative for DVT- PE unlikely -CXR: no acute disease. cardiomegaly -renal following -echo 04/21: 25 % EF. LVH. Decr systolic function. Grade II diastolic dysfunction. seere hypokinesis. LA dilation. Mild/ mod pulm HTN -monitor Is & Os -daily weights #Nausea/Vomiting; unclear etiology, ? medication-induced with abx -IV abx changed from Clinda to Unasyn -Abd xray neg -if symptoms cont, will consider doing CTAP tomorrow -Cdiff ordered #RLE wound, LLE wound, possible cellulitis; WBC 13.3 -WBC continues to increase; was on IV Clindamycin but will switch to IV Unasyn -Seen by podiatry: rec santyl daily to b/l foot ulcers. no acute surgical intervention at this time. -Vasc surg consulted; will need to follow up on outpatient vascular studies done -R foot XR negative for fracture or OM -blood cultures NGTD -Nystatin for toes #Supratherapeutic INR; Resolved, now therapeutic INR 2.27 -Stable now, cont to trend INR -Will cont home Coumadin 5mg QD #ESRD; Cont HD schedule. Nephro following. #A-fib; Rate-controlled. Cont home med: Coumadin 5 mg QD #HTN; Cont home med: Imdur 30mg HS at home #Chronic back pain; Cont home meds: Morphine ER 30mg BID, Oxycodone 20mg q4h PRN #CAD; Patient previously on ASA/Plavix given stent hx however was d/c'd end of 2018 2/2 GIB (gastric ulcer, erosions, anemia) #FEN -no IVf -trend & replete lytes prn -renal diet #PPX DVT: Cont home Coumadin 5 mg GI: Cont home Protonix 40 #Dispo -Cont to monitor on tele Visit type - Emergency Visit Emergency Visit: Yes ED Registration Date: 04/20/20 Care time: The patient presented to the Emergency Department on the above date and was hospitalized for further evaluation of their emergent condition. - New Patient This patient is new to me today: Yes Date on this admission: 04/23/20 - Critical Care Critical Care patient: No ATTENDING PHYSICIAN STATEMENT I saw and evaluated the patient. I reviewed the resident's note and discussed the case with the resident. I agree with the resident's findings and plan as documented. SUBJECTIVE: OBJECTIVE: ASSESSMENT AND PLAN:
[2020-04-23] MEDS ORDERED: FUROSEMIDE 40 MG/4 ML INJECTABLE VIAL IVPUSH ONE (17:15)
--- NOTE | 2020-04-23 17:25 | PN ---
Teaching Attending Note Name of Resident: Briseyda Archer ATTENDING PHYSICIAN STATEMENT I saw and evaluated the patient. I reviewed the resident's note and discussed the case with the resident. I agree with the resident's findings and plan as documented. SUBJECTIVE: Nausea, vomited yesterday . has loose pasty stool. no abd pain. Has back and neck and feet pain . OBJECTIVE: NAD, awake, alert, cooperative. CV: RRR, + JVD. no MRG. Lungs: bibasilar crackles Abd: soft, NT, ND , Nl BS Ext: 1+ edema on legs and feet. erythema on legs cont to improve. nl warmth . small wounds on dorsal R foot , with no discharge. + scabbing on those wounds. eschar on medial R big toe, and R 3rd toe. and L 3rd toe. no discharge. fungal infection among the 3rd, 4th interdigital webs in R foot. DP 1+ bilaterally ASSESSMENT AND PLAN: 70 y/o man with h/o Afib, Diastolic CHF, DM, ICM, with EF of 30-35 %, PPM, 1st degree AV block, CVA, COPD (on home oxygen 4L) and ESRD on hemodialysis (MWF), who presented with SOB few hours after his HD yesterday. 1- Acute on chronic diastolic CHF exacerbation. -will give 80 of lasix today - HD tomorrow 2- N/V. not sure of etiology. ? Abx. KUB with no obstruction or ileus. ? c diff - change Abx. - will monitor tomorrow for need for CT - send c diff toxin 3- Cellulitis in RLE. non purulent. - day 3 of Abx. change to unasyn - although cellulitis is improcving , WBC is worse. not sure why - send blood cx as patient is at risk fro blood stream infections with HD - send c diff - send urine cx - treat tinea pedis on R side with topical antifungal 4- H/o DM: Not on any meds as out pt . -A1c 7 - cont SSI here 5- h/o HTN: cont imdur 6- H/o A fib: resume coumadin at a lower dose 7- Prolonged QTC : - monitor. 8- Chronic pain : cont home meds. increase frequency of oxy 9- Possible PVD. vascular consult pending. Unable to reach Dr. nguyen . out pt doppler is not read. HLOC ASSESSMENT AND PLAN:
--- NOTE | 2020-04-23 17:37 | EKG ---
Test Reason : Blood Pressure : / mmHG Vent. Rate : 078 BPM Atrial Rate : 078 BPM P-R Int : 182 ms QRS Dur : 208 ms QT Int : 478 ms P-R-T Axes : 033 -87 073 degrees QTc Int : 544 ms SINUS RHYTHM atrial-sensed ventricular-paced complexes PREMATURE VENTRICULAR COMPLEXES Confirmed by FAHEEM BRADLEY, JOAO ([id number]) on 04/23/2020 5:37:12 PM Referred By: Confirmed By:JOAO MAYEN MD
--- NOTE | 2020-04-23 17:58 | PN ---
Progress Note, Physician History of Present Illness: Pt seen and examined at bedside. He remains in the ICU. He is awake and alert. He feels that his breathing and edema are improving. He denies chest pain. - Current Medication List Current Medications: Active Medications Acetaminophen (Tylenol -) 650 mg PO Q6H PRN PRN Reason: Fever Or Pain Last Admin: 04/23/20 11:35 Dose: 650 mg Documented by: Collagenase (Santyl -) 1 applic TP DAILY [facility]; Protocol Last Admin: 04/23/20 13:22 Dose: 1 applic Documented by: Ferrous Sulfate (Feosol -) 325 mg PO DAILY [facility] Last Admin: 04/23/20 09:58 Dose: 325 mg Documented by: Folic Acid (Folic Acid -) 1 mg PO DAILY [facility] Last Admin: 04/23/20 09:58 Dose: 1 mg Documented by: Ampicillin Sodium/Sulbactam (Sodium 3 gm/ Sodium Chloride) 100 mls @ 200 mls/hr IVPB Q6H-IV [facility] Stop: 04/24/20 03:00 Last Admin: 04/23/20 16:06 Dose: 200 mls/hr Documented by: Ampicillin Sodium/Sulbactam (Sodium 3 gm/ Sodium Chloride) 100 mls @ 200 mls/hr IVPB Q24H [facility] Insulin Aspart (Novolog Vial Sliding Scale -) 1 vial SQ ACHS [facility]; Protocol Last Admin: 04/23/20 11:34 Dose: 2 units Documented by: Isosorbide Mononitrate (Imdur -) 30 mg PO HS [facility] Last Admin: 04/22/20 21:24 Dose: 30 mg Documented by: Morphine Sulfate (Ms Contin -) 30 mg PO BID [facility] Last Admin: 04/23/20 09:57 Dose: 30 mg Documented by: Nystatin (Mycostatin Cream -) 1 applic TP BID [facility] Last Admin: 04/23/20 09:59 Dose: 1 applic Documented by: Oxycodone HCl (Roxicodone -) 20 mg PO Q4H PRN PRN Reason: PAIN LEVEL 7 - 10 Last Admin: 04/23/20 15:26 Dose: 20 mg Documented by: Pantoprazole Sodium (Protonix -) 40 mg PO DAILY [facility] Last Admin: 04/23/20 09:59 Dose: 40 mg Documented by: Polyethylene Glycol (Miralax (For Daily Use) -) 17 gm PO BID [facility] Last Admin: 04/23/20 09:59 Dose: Not Given Documented by: Prochlorperazine Maleate (Compazine -) 5 mg PO Q6H PRN PRN Reason: NAUSEA AND/OR VOMITING Last Admin: 04/22/20 23:08 Dose: 5 mg Documented by: Rosuvastatin Calcium (Crestor -) 10 mg PO HS [facility] Last Admin: 04/22/20 21:25 Dose: 10 mg Documented by: Warfarin Sodium (Coumadin -) 4 mg PO DAILY@1800 [facility] - Objective Vital Signs: Vital Signs Temperature 98.4 F 04/23/20 15:28 Pulse Rate 70 04/23/20 15:28 Respiratory Rate 20 04/23/20 15:28 Blood Pressure 133/67 04/23/20 10:00 O2 Sat by Pulse Oximetry (%) 96 04/23/20 09:00 Constitutional: Yes: Calm Eyes: Yes: Conjunctiva Clear HENT: Yes: Atraumatic Neck: Yes: Supple Cardiovascular: Yes: S1, S2 Respiratory: Yes: CTA Bilaterally, On Nasal O2 Gastrointestinal: Yes: Soft Genitourinary: Yes: WNL Edema: Yes Edema: LLE: 1+, RLE: 1+ Neurological: Yes: Oriented Psychiatric: Yes: Oriented Labs: CBC, BMP 04/23/20 05:40 04/23/20 05:40 INR, PTT INR 2.27 (0.83-1.09) H 04/23/20 05:40 Problem List - Problems (1) ESRD (end stage renal disease) Code(s): N18.6 - END STAGE RENAL DISEASE (2) COPD (chronic obstructive pulmonary disease) Code(s): J44.9 - CHRONIC OBSTRUCTIVE PULMONARY DISEASE, UNSPECIFIED Assessment/Plan Current Medications Generic Name Dose Route Start Last Admin Trade Name Freq PRN Reason Stop Dose Admin Acetaminophen 650 mg 04/22/20 17:30 04/23/20 11:35 Tylenol - PO 650 mg Q6H PRN Administration Fever Or Pain Collagenase 1 applic 04/22/20 10:00 04/23/20 13:22 Santyl - TP 1 applic DAILY [facility] Administration Protocol Ferrous Sulfate 325 mg 04/21/20 10:00 04/23/20 09:58 Feosol - PO 325 mg DAILY [facility] Administration Folic Acid 1 mg 04/21/20 10:00 04/23/20 09:58 Folic Acid - PO 1 mg DAILY [facility] Administration Ampicillin Sodium/Sulbactam 100 mls @ 200 mls/hr 04/23/20 15:00 04/23/20 16:06 Sodium 3 gm/ Sodium Chloride IVPB 04/24/20 03:00 200 mls/hr Q6H-IV [facility] Administration Ampicillin Sodium/Sulbactam 100 mls @ 200 mls/hr 04/24/20 16:00 Sodium 3 gm/ Sodium Chloride IVPB Q24H [facility] Insulin Aspart 1 vial 04/21/20 07:00 04/23/20 11:34 Novolog Vial Sliding Scale - SQ 2 units ACHS [facility] Administration Protocol Isosorbide Mononitrate 30 mg 04/22/20 22:00 04/22/20 21:24 Imdur - PO 30 mg HS [facility] Administration Morphine Sulfate 30 mg 04/21/20 14:04 04/23/20 09:57 Ms Contin - PO 30 mg BID [facility] Administration Nystatin 1 applic 04/21/20 14:00 04/23/20 09:59 Mycostatin Cream - TP 1 applic BID [facility] Administration Oxycodone HCl 20 mg 04/23/20 11:34 04/23/20 15:26 Roxicodone - PO 20 mg Q4H PRN Administration PAIN LEVEL 7 - 10 Pantoprazole Sodium 40 mg 04/21/20 10:00 04/23/20 09:59 Protonix - PO 40 mg DAILY [facility] Administration Polyethylene Glycol 17 gm 04/21/20 10:00 04/23/20 09:59 Miralax (For Daily Use) - PO Not Given BID [facility] Prochlorperazine Maleate 5 mg 04/22/20 13:00 04/22/20 23:08 Compazine - PO 5 mg Q6H PRN Administration NAUSEA AND/OR VOMITING Rosuvastatin Calcium 10 mg 04/21/20 22:00 04/22/20 21:25 Crestor - PO 10 mg HS [facility] Administration Warfarin Sodium 4 mg 04/23/20 18:00 Coumadin - PO DAILY@1800 [facility] Microbiology 04/20/20 21:15 Blood - Peripheral Venous Blood Culture - Preliminary NO GROWTH OBTAINED AFTER 48 HOURS, INCUBATION TO CONTINUE FOR 3 DAYS. 04/20/20 21:10 Blood - Peripheral Venous Blood Culture - Preliminary NO GROWTH OBTAINED AFTER 48 HOURS, INCUBATION TO CONTINUE FOR 3 DAYS. Impression 1. ESRD 2. shortness of breath 3. copd 4. chf 5. positive anti-histone ab 6. fluid overload 7. cva 8. anemia Plan - lasix today - HD tomorrow - monitor bp - renal diet - discussed fluid intake - volume status is improving - cont ICU care - monitor pulse ox - cultures are negative so far
[2020-04-23] MEDS ORDERED: WARFARIN NA 5 MG TABLET PO SCH (18:00)
[2020-04-23] MEDS: WARFARIN NA 2 MG TABLET PO SCH (18:12)
[2020-04-23] MEDS: ISOSORBIDE MONONITRATE 30 MG TAB.SR.24H (FP) PO SCH (21:07)
[2020-04-23] MEDS: ROSUVASTATIN CA 10 MG TABLET (FP) PO SCH (21:07)
[2020-04-23] MEDS ORDERED: MELATONIN 5 MG TABLETS PO ONE (22:19)
[2020-04-24] MEDS: AMPICILLIN NA/SULBACTAM NA 3 GM in SODIUM CHLORIDE 100 ML IVPB SCH ×2 (02:18→16:05)
[2020-04-24] MEDS: oxyCODONE HCL 5 MG TABLET PO PRN ×4 (04:47→16:36)
[2020-04-24] MEDS ORDERED: SODIUM CHLORIDE 250 ML IV PRN (06:32)
[2020-04-24 06:34] LABS: BASO % 0.6 % (0-2.0); HEMATOCRIT 35.3 % (35.4-49); HEMOGLOBIN 10.9 GM/dL (11.7-16.9); MCH 28.4 pg (25.7-33.7); MCHC 30.9 g/dl (32.0-35.9); MONO % 10.1 % (3.8-10.2); NEUT % 84.3 % (42.8-82.8); PLATELET COUNT 152 K/MM3 (134-434); RBC 3.84 M/mm3 (4.00-5.60); RDW 19.4 % (11.9-15.9); WHITE BLOOD COUNT 11.2 K/mm3 (4.0-10.0)
[2020-04-24 06:46] LABS: INR 2.16 (0.83-1.09); PROTHROMBIN TIME (PATIENT) 25.7 SEC (9.7-13.0)
[2020-04-24 07:03] LABS: ALBUMIN 3.2 g/dl (3.4-5.0); BILIRUBIN,TOTAL 0.6 mg/dL (0.2-1); BLOOD UREA NITROGEN 49.8 mg/dL (7-18); CALCIUM 8.1 mg/dL (8.5-10.1); CREATININE 2.8 mg/dL (0.55-1.3); POTASSIUM 3.4 mmol/L (3.5-5.1); TOT PROT 5.8 g/dl (6.4-8.2)
[2020-04-24] MEDS: ALBUMIN HUMAN 25% 12.5 GM/50 ML VIAL IVPB SCH ×2 (08:20→11:09)
--- NOTE | 2020-04-24 08:24 | PN ---
Progress Note (short form) - Note Progress Note: Podiatry F/U: Seen/evaluated at bedside, currently vomitting. doing well; states that he is just ready to go home. ZION: Pedal pulses nonpalpable, TG wnl, CFT five seconds to all digits. On the right foot, there is necrotic patch on the dorsal aspect of the hallux IPJ. There is no bone exposed, no purulence, no fluctuance, no cellulitis, no signs of infection. On the left foot, there is a necrotic patch dorsal aspect of the PIPJ, no exposed bone, no purulence, no fluctuance, no streaking cellulitis, no signs of infection. Moderate tenderness to the foot bilaterally. Imp: 70 year old diabetic PVD male with right hallux gangrene, left second digit gangrene Evaluated and reviewed santyl to wounds daily f/u vascular f/u outpatient wound care center Stable for d/c planning from pod standpoint
[2020-04-24] MEDS: INSULIN SLIDING SCALE (NOVOLOG) 1 VIAL SQ SCH ×4 (08:38→22:19)
[2020-04-24] MEDS: ACETAMINOPHEN 325 MG TABLET (FP) PO PRN ×2 (08:40→14:37)
[2020-04-24] MEDS: POLYETHYLENE GLYCOL 3350 119 GM BTL PO SCH ×2 (09:07→22:15)
[2020-04-24] MEDS: COLLAGENASE CLOSTRIDIUM HIST. 30 GRAMS TUBE TP SCH (09:07)
[2020-04-24] MEDS: FERROUS SO4 325 MG TABLET (FP) PO SCH (09:07)
[2020-04-24] MEDS: morphine SO4 SUSTAINED ACTING 30 MG TABLET.SA PO SCH ×2 (09:07→22:13)
[2020-04-24] MEDS: PANTOPRAZOLE 40 MG TABLET PO SCH (09:07)
[2020-04-24] MEDS: NYSTATIN 100,000 UNIT/GM TOPICAL CREAM 15 GM TUBE TP SCH ×2 (09:07→22:14)
[2020-04-24] MEDS: FOLIC ACID 1 MG TABLET (FP) PO SCH (09:07)
[2020-04-24 10:00] LABS: ANISOCYTOSIS 1+; MACROCYTOSIS 0; OVALOCYTE 1+; PLATELET ESTIMATE DECREASED; TEAR DROP CELLS 1+
[2020-04-24] MEDS ORDERED: POTASSIUM CHLORIDE TABS 10 MEQ TABLET.ER (FP) PO ONE (10:04)
--- NOTE | 2020-04-24 10:06 | PN ---
Progress Note, Physician History of Present Illness: Pt seen and examined at bedside. He says he feels better and is asking to go home. - Current Medication List Current Medications: Active Medications Acetaminophen (Tylenol -) 650 mg PO Q6H PRN PRN Reason: Fever Or Pain Last Admin: 04/23/20 11:35 Dose: 650 mg Documented by: Collagenase (Santyl -) 1 applic TP DAILY [facility]; Protocol Last Admin: 04/24/20 09:07 Dose: 1 applic Documented by: Ferrous Sulfate (Feosol -) 325 mg PO DAILY [facility] Last Admin: 04/24/20 09:07 Dose: 325 mg Documented by: Folic Acid (Folic Acid -) 1 mg PO DAILY [facility] Last Admin: 04/24/20 09:07 Dose: 1 mg Documented by: Ampicillin Sodium/Sulbactam (Sodium 3 gm/ Sodium Chloride) 100 mls @ 200 mls/hr IVPB Q24H [facility] Sodium Chloride (Normal Saline -) 250 mls @ 3,000 mls/hr IV PRN PRN PRN Reason: Hypotension during Dialysis Stop: 04/25/20 06:31 Insulin Aspart (Novolog Vial Sliding Scale -) 1 vial SQ ACHS [facility]; Protocol Last Admin: 04/24/20 08:38 Dose: Not Given Documented by: Isosorbide Mononitrate (Imdur -) 30 mg PO HS [facility] Last Admin: 04/23/20 21:07 Dose: 30 mg Documented by: Morphine Sulfate (Ms Contin -) 30 mg PO BID [facility] Last Admin: 04/24/20 09:07 Dose: 30 mg Documented by: Nystatin (Mycostatin Cream -) 1 applic TP BID [facility] Last Admin: 04/24/20 09:07 Dose: 1 applic Documented by: Oxycodone HCl (Roxicodone -) 20 mg PO Q4H PRN PRN Reason: PAIN LEVEL 7 - 10 Last Admin: 04/24/20 08:40 Dose: 20 mg Documented by: Pantoprazole Sodium (Protonix -) 40 mg PO DAILY [facility] Last Admin: 04/24/20 09:07 Dose: 40 mg Documented by: Polyethylene Glycol (Miralax (For Daily Use) -) 17 gm PO BID [facility] Last Admin: 04/24/20 09:07 Dose: Not Given Documented by: Potassium Chloride (K-Dur -) 10 meq PO ONCE ONE Stop: 04/24/20 10:05 Prochlorperazine Maleate (Compazine -) 5 mg PO Q6H PRN PRN Reason: NAUSEA AND/OR VOMITING Last Admin: 04/22/20 23:08 Dose: 5 mg Documented by: Rosuvastatin Calcium (Crestor -) 10 mg PO HS [facility] Last Admin: 04/23/20 21:07 Dose: 10 mg Documented by: Warfarin Sodium (Coumadin -) 4 mg PO DAILY@1800 [facility] Last Admin: 04/23/20 18:12 Dose: 4 mg Documented by: - Objective Vital Signs: Vital Signs Temperature 98.9 F 04/24/20 06:00 Pulse Rate 74 04/24/20 09:30 Respiratory Rate 15 04/24/20 09:30 Blood Pressure 139/72 04/24/20 09:30 O2 Sat by Pulse Oximetry (%) 97 04/23/20 23:54 Constitutional: Yes: Calm Eyes: Yes: Conjunctiva Clear HENT: Yes: Atraumatic, Tonsillar Exudate Cardiovascular: Yes: S1, S2 Respiratory: Yes: CTA Bilaterally, On Nasal O2 Gastrointestinal: Yes: Soft Genitourinary: Yes: WNL Musculoskeletal: Yes: WNL Edema: No Integumentary: Yes: WNL Neurological: Yes: Oriented Psychiatric: Yes: Oriented Labs: CBC, BMP 04/24/20 05:55 04/24/20 05:55 INR, PTT INR 2.16 (0.83-1.09) H 04/24/20 05:55 Problem List - Problems (1) ESRD (end stage renal disease) Code(s): N18.6 - END STAGE RENAL DISEASE (2) COPD (chronic obstructive pulmonary disease) Code(s): J44.9 - CHRONIC OBSTRUCTIVE PULMONARY DISEASE, UNSPECIFIED Assessment/Plan Current Medications Generic Name Dose Route Start Last Admin Trade Name Freq PRN Reason Stop Dose Admin Acetaminophen 650 mg 04/22/20 17:30 04/23/20 11:35 Tylenol - PO 650 mg Q6H PRN Administration Fever Or Pain Collagenase 1 applic 04/22/20 10:00 04/24/20 09:07 Santyl - TP 1 applic DAILY [facility] Administration Protocol Ferrous Sulfate 325 mg 04/21/20 10:00 04/24/20 09:07 Feosol - PO 325 mg DAILY [facility] Administration Folic Acid 1 mg 04/21/20 10:00 04/24/20 09:07 Folic Acid - PO 1 mg DAILY [facility] Administration Ampicillin Sodium/Sulbactam 100 mls @ 200 mls/hr 04/24/20 16:00 Sodium 3 gm/ Sodium Chloride IVPB Q24H [facility] Sodium Chloride 250 mls @ 3,000 mls/hr 04/24/20 06:32 Normal Saline - IV 04/25/20 06:31 PRN PRN Hypotension during Dialysis Insulin Aspart 1 vial 04/21/20 07:00 04/24/20 08:38 Novolog Vial Sliding Scale - SQ Not Given ACHS [facility] Protocol Isosorbide Mononitrate 30 mg 04/22/20 22:00 04/23/20 21:07 Imdur - PO 30 mg HS [facility] Administration Morphine Sulfate 30 mg 04/21/20 14:04 04/24/20 09:07 Ms Contin - PO 30 mg BID [facility] Administration Nystatin 1 applic 04/21/20 14:00 04/24/20 09:07 Mycostatin Cream - TP 1 applic BID [facility] Administration Oxycodone HCl 20 mg 04/23/20 11:34 04/24/20 08:40 Roxicodone - PO 20 mg Q4H PRN Administration PAIN LEVEL 7 - 10 Pantoprazole Sodium 40 mg 04/21/20 10:00 04/24/20 09:07 Protonix - PO 40 mg DAILY [facility] Administration Polyethylene Glycol 17 gm 04/21/20 10:00 04/24/20 09:07 Miralax (For Daily Use) - PO Not Given BID [facility] Potassium Chloride 10 meq 04/24/20 10:04 K-Dur - PO 04/24/20 10:05 ONCE ONE Prochlorperazine Maleate 5 mg 04/22/20 13:00 04/22/20 23:08 Compazine - PO 5 mg Q6H PRN Administration NAUSEA AND/OR VOMITING Rosuvastatin Calcium 10 mg 04/21/20 22:00 04/23/20 21:07 Crestor - PO 10 mg HS [facility] Administration Warfarin Sodium 4 mg 04/23/20 18:00 04/23/20 18:12 Coumadin - PO 4 mg DAILY@1800 [facility] Administration Microbiology 04/20/20 21:15 Blood - Peripheral Venous Blood Culture - Preliminary NO GROWTH OBTAINED AFTER 72 HOURS, INCUBATION TO CONTINUE FOR 2 DAYS. 04/20/20 21:10 Blood - Peripheral Venous Blood Culture - Preliminary NO GROWTH OBTAINED AFTER 72 HOURS, INCUBATION TO CONTINUE FOR 2 DAYS. Impression 1. ESRD 2. shortness of breath 3. copd 4. chf 5. positive anti-histone ab 6. fluid overload 7. cva 8. anemia Plan - HD today - lasix on non hd days - replace potassium - pt requesting to go home, he does have hd set up as outpt - discussed diet and fluid intake at length - avf as outpt - renal diet - volume status is improving - monitor pulse ox - cultures are negative so far, cont to monitor
--- NOTE | 2020-04-24 13:13 | PN ---
Physical Exam: SUBJECTIVE: Patient seen and examined at bedside. No acute events overnight. Denies any further nausea/vomiting. Per pt, no diarrhea overnight. Denies chest pain, sob, f/c. OBJECTIVE: Vital Signs Period Temp Pulse Resp BP Sys/Chandra Pulse Ox Last 24 Hr 98 F-98.9 F 59-90 14-20 107-139/59-74 97-97 GENERAL: aaox3, in no acute distress. HEENT: NCAT. MMM. No JVD. LUNGS: B/l rhonchi, no accessory muscle use. HEART: Regular rate and rhythm, S1, S2 without murmur, rub or gallop. ABDOMEN: Soft, nontender, nondistended, normoactive bowel sounds, no guarding. EXTREMITIES: 1+ pulses palpated DP/ TP. Right 1st digit ulcer ~3x4cm; multiple healing wounds to R dorsal foot. Left 2nd digit ulcer. LE erythema improving. Normal temp to touch. 1+ pitting edema b/l LE. NEUROLOGICAL: Cranial nerves II through XII grossly intact. PSYCH: Normal mood, normal affect. SKIN: Midline sternotomy healed scar. R permacath in place c/d/i. CBCD WBC 11.2 K/mm3 (4.0-10.0) H 04/24/20 05:55 RBC 3.84 M/mm3 (4.00-5.60) L 04/24/20 05:55 Hgb 10.9 GM/dL (11.7-16.9) L 04/24/20 05:55 Hct 35.3 % (35.4-49) L 04/24/20 05:55 MCV 92.0 fl (80-96) 04/24/20 05:55 MCHC 30.9 g/dl (32.0-35.9) L 04/24/20 05:55 RDW 19.4 % (11.9-15.9) H 04/24/20 05:55 Plt Count 152 K/MM3 (134-434) 04/24/20 05:55 MPV 9.0 fl (7.5-11.1) 04/24/20 05:55 CMP Sodium 136 mmol/L (136-145) 04/24/20 05:55 Potassium 3.4 mmol/L (3.5-5.1) L 04/24/20 05:55 Chloride 102 mmol/L (98-107) 04/24/20 05:55 Carbon Dioxide 29 mmol/L (21-32) 04/24/20 05:55 Anion Gap 5 MMOL/L (8-16) L 04/24/20 05:55 BUN 49.8 mg/dL (7-18) H 04/24/20 05:55 Creatinine 2.8 mg/dL (0.55-1.3) H 04/24/20 05:55 Calcium 8.1 mg/dL (8.5-10.1) L 04/24/20 05:55 Total Bilirubin 0.6 mg/dL (0.2-1) 04/24/20 05:55 AST 12 U/L (15-37) L 04/24/20 05:55 ALT 29 U/L (13-61) 04/24/20 05:55 Alkaline Phosphatase 89 U/L (45-117) 04/24/20 05:55 Total Protein 5.8 g/dl (6.4-8.2) L 04/24/20 05:55 Albumin 3.2 g/dl (3.4-5.0) L 04/24/20 05:55 Active Medications Generic Name Dose Route Start Last Admin Trade Name Freq PRN Reason Stop Dose Admin Acetaminophen 650 mg 04/22/20 17:30 04/23/20 11:35 Tylenol - PO 650 mg Q6H PRN Administration Fever Or Pain Collagenase 1 applic 04/22/20 10:00 04/24/20 09:07 Santyl - TP 1 applic DAILY [facility] Administration Protocol Ferrous Sulfate 325 mg 04/21/20 10:00 04/24/20 09:07 Feosol - PO 325 mg DAILY [facility] Administration Folic Acid 1 mg 04/21/20 10:00 04/24/20 09:07 Folic Acid - PO 1 mg DAILY [facility] Administration Ampicillin Sodium/Sulbactam 100 mls @ 200 mls/hr 04/24/20 16:00 Sodium 3 gm/ Sodium Chloride IVPB Q24H RADHA Sodium Chloride 250 mls @ 3,000 mls/hr 04/24/20 06:32 Normal Saline - IV 04/25/20 06:31 PRN PRN Hypotension during Dialysis Insulin Aspart 1 vial 04/21/20 07:00 04/24/20 12:12 Novolog Vial Sliding Scale - SQ 2 units ACHS RAD[facility] Administration Protocol Isosorbide Mononitrate 30 mg 04/22/20 22:00 04/23/20 21:07 Imdur - PO 30 mg HS RADHA Administration Morphine Sulfate 30 mg 04/21/20 14:04 04/24/20 09:07 Ms Contin - PO 30 mg BID [facility] Administration Nystatin 1 applic 04/21/20 14:00 04/24/20 09:07 Mycostatin Cream - TP 1 applic BID [facility] Administration Oxycodone HCl 20 mg 04/23/20 11:34 04/24/20 12:43 Roxicodone - PO 20 mg Q4H PRN Administration PAIN LEVEL 7 - 10 Pantoprazole Sodium 40 mg 04/21/20 10:00 04/24/20 09:07 Protonix - PO 40 mg DAILY [facility] Administration Polyethylene Glycol 17 gm 04/21/20 10:00 04/24/20 09:07 Miralax (For Daily Use) - PO Not Given BID [facility] Prochlorperazine Maleate 5 mg 04/22/20 13:00 04/22/20 23:08 Compazine - PO 5 mg Q6H PRN Administration NAUSEA AND/OR VOMITING Rosuvastatin Calcium 10 mg 04/21/20 22:00 04/23/20 21:07 Crestor - PO 10 mg HS RAD[facility] Administration Warfarin Sodium 4 mg 04/23/20 18:00 04/23/20 18:12 Coumadin - PO 4 mg DAILY@1800 [facility] Administration ASSESSMENT/PLAN: 70M PMH A-fib, HFrEF (EF 30-35%, Global LV Hypokinesis), CAD (S/P CABG), Ischemic Cardiomyopathy s/p PPM, 1st degree AV Block, CVA, COPD (on 4L Home O2), ESRD on HD (Makes minimal urine, on HD MWF) IDDM, presented w/ shortness of breath #Acute on Chronic Diastolic CHF exacerbation -continue lasix on non-HD days; HD done this morning -LE U/S negative for DVT- PE unlikely -CXR: no acute disease. cardiomegaly -renal following -echo 04/21: 25 % EF. LVH. Decr systolic function. Grade II diastolic dysfunction. seere hypokinesis. LA dilation. Mild/mod pulm HTN -I/O, daily weights #Nausea/Vomiting; unclear etiology, ? medication-induced with abx. No new episodes overnight. -IV abx changed from Clinda to Unasyn 3gm q24h -Abd xray neg -will hold off on CTAP for now given resolution of symptoms -Cdiff ordered #RLE wound, LLE wound, possible cellulitis; WBC 13.3 -WBC improving 13.3 --> 11.2; (previously on IV Clindamycin) now on IV Unasyn (started 04/23), day -Seen by podiatry: rec santyl daily to b/l foot ulcers. no acute surgical intervention at this time. Stable for d/c from pod standpoint. -Vasc surg consulted; awaiting recs -R foot XR negative for fracture or OM -blood cultures NGTD -Nystatin for toes #Supratherapeutic INR; Resolved, now therapeutic INR 2.16 -Stable now, cont to trend INR -Will cont home Coumadin 5mg QD #ESRD; Cont HD schedule. Nephro following. #A-fib; Rate-controlled. Cont home med: Coumadin 5 mg QD #HTN; Cont home med: Imdur 30mg HS at home #Chronic back pain; Cont home meds: Morphine ER 30mg BID, Oxycodone 20mg q4h PRN #CAD; Patient previously on ASA/Plavix given stent hx however was d/c'd end of 2018 2/2 GIB (gastric ulcer, erosions, anemia) #FEN -no IVf -trend & replete lytes prn -renal diet #PPX DVT: Cont home Coumadin 5 mg GI: Cont home Protonix 40 #Dispo -Cont to monitor on tele -D/c planning pending need for further abx and vasc recs. Possible d/c tomorrow as HD is set up as outpatient. Will need wound care follow up in clinic. Visit type - Emergency Visit Emergency Visit: Yes ED Registration Date: 04/20/20 Care time: The patient presented to the Emergency Department on the above date and was hospitalized for further evaluation of their emergent condition. - New Patient This patient is new to me today: No - Critical Care Critical Care patient: No ATTENDING PHYSICIAN STATEMENT I saw and evaluated the patient. I reviewed the resident's note and discussed the case with the resident. I agree with the resident's findings and plan as documented. SUBJECTIVE: OBJECTIVE: ASSESSMENT AND PLAN:
--- NOTE | 2020-04-24 15:26 | PN ---
Teaching Attending Note Name of Resident: Briseyda Archer ATTENDING PHYSICIAN STATEMENT I saw and evaluated the patient. I reviewed the resident's note and discussed the case with the resident. I agree with the resident's findings and plan as documented. SUBJECTIVE: No complaints. OBJECTIVE: Vital Signs Period Temp Pulse Resp BP Sys/Chandra Pulse Ox Last 24 Hr 98 F-98.9 F 59-90 14-20 107-139/55-74 97-97 HEART: S1S2, RRR LUNGS: Scattered rhonchi ABDOMEN: Soft, non-tender, non-distended, normal BS EXTREMITIES: 1+ edema, multiple wounds dorsal surface right foot, left 2nd toe ulcer without drainage or erythema Laboratory Results - last 24 hr 04/23/20 04/23/20 04/24/20 18:05 20:57 05:55 WBC 11.2 H RBC 3.84 L Hgb 10.9 L Hct 35.3 L MCV 92.0 MCH 28.4 MCHC 30.9 L RDW 19.4 H Plt Count 152 MPV 9.0 Absolute Neuts (auto) 9.5 H Neutrophils % 84.3 H Neutrophils % (Manual) 78.0 Band Neutrophils % 4.0 Lymphocytes % 4.0 L D Lymphocytes % (Manual) 7.0 L D Monocytes % 10.1 D Monocytes % (Manual) 7 D Eosinophils % 1.0 D Eosinophils % (Manual) 1.0 D Basophils % 0.6 Basophils % (Manual) 1.0 D Myelocytes % (Man) 0 Promyelocytes % (Man) 0 Blast Cells % (Manual) 0 Nucleated RBC % 1 H Metamyelocytes 0 Hypochromia 0 Platelet Estimate Decreased Platelet Comment Present Polychromasia 0 Poikilocytosis 1+ Anisocytosis 1+ Microcytosis 1+ Macrocytosis 0 Spherocytes 1+ Tear Drop Cells 1+ Ovalocytes 1+ PT with INR INR Sodium Potassium Chloride Carbon Dioxide Anion Gap BUN Creatinine Est GFR (CKD-EPI)AfAm Est GFR (CKD-EPI)NonAf POC Glucometer 111 124 Random Glucose Calcium Total Bilirubin AST ALT Alkaline Phosphatase Total Protein Albumin 04/24/20 04/24/20 04/24/20 05:55 05:55 06:43 WBC RBC Hgb Hct MCV MCH MCHC RDW Plt Count MPV Absolute Neuts (auto) Neutrophils % Neutrophils % (Manual) Band Neutrophils % Lymphocytes % Lymphocytes % (Manual) Monocytes % Monocytes % (Manual) Eosinophils % Eosinophils % (Manual) Basophils % Basophils % (Manual) Myelocytes % (Man) Promyelocytes % (Man) Blast Cells % (Manual) Nucleated RBC % Metamyelocytes Hypochromia Platelet Estimate Platelet Comment Polychromasia Poikilocytosis Anisocytosis Microcytosis Macrocytosis Spherocytes Tear Drop Cells Ovalocytes PT with INR 25.70 H INR 2.16 H Sodium 136 Potassium 3.4 L Chloride 102 Carbon Dioxide 29 Anion Gap 5 L BUN 49.8 H Creatinine 2.8 H Est GFR (CKD-EPI)AfAm 24.99 Est GFR (CKD-EPI)NonAf 21.56 POC Glucometer 126 Random Glucose 143 H Calcium 8.1 L Total Bilirubin 0.6 AST 12 L ALT 29 Alkaline Phosphatase 89 Total Protein 5.8 L Albumin 3.2 L 04/24/20 12:04 WBC RBC Hgb Hct MCV MCH MCHC RDW Plt Count MPV Absolute Neuts (auto) Neutrophils % Neutrophils % (Manual) Band Neutrophils % Lymphocytes % Lymphocytes % (Manual) Monocytes % Monocytes % (Manual) Eosinophils % Eosinophils % (Manual) Basophils % Basophils % (Manual) Myelocytes % (Man) Promyelocytes % (Man) Blast Cells % (Manual) Nucleated RBC % Metamyelocytes Hypochromia Platelet Estimate Platelet Comment Polychromasia Poikilocytosis Anisocytosis Microcytosis Macrocytosis Spherocytes Tear Drop Cells Ovalocytes PT with INR INR Sodium Potassium Chloride Carbon Dioxide Anion Gap BUN Creatinine Est GFR (CKD-EPI)AfAm Est GFR (CKD-EPI)NonAf POC Glucometer 154 Random Glucose Calcium Total Bilirubin AST ALT Alkaline Phosphatase Total Protein Albumin Current Medications Generic Name Dose Route Start Last Admin Trade Name Christianoq PRN Reason Stop Dose Admin Acetaminophen 650 mg 04/22/20 17:30 04/24/20 14:37 Tylenol - PO 650 mg Q6H PRN Administration Fever Or Pain Collagenase 1 applic 04/22/20 10:00 04/24/20 09:07 Santyl - TP 1 applic DAILY [facility] Administration Protocol Ferrous Sulfate 325 mg 04/21/20 10:00 04/24/20 09:07 Feosol - PO 325 mg DAILY [facility] Administration Folic Acid 1 mg 04/21/20 10:00 04/24/20 09:07 Folic Acid - PO 1 mg DAILY [facility] Administration Ampicillin Sodium/Sulbactam 100 mls @ 200 mls/hr 04/24/20 16:00 Sodium 3 gm/ Sodium Chloride IVPB Q24H [facility] Sodium Chloride 250 mls @ 3,000 mls/hr 04/24/20 06:32 Normal Saline - IV 04/25/20 06:31 PRN PRN Hypotension during Dialysis Insulin Aspart 1 vial 04/21/20 07:00 04/24/20 12:12 Novolog Vial Sliding Scale - SQ 2 units ACHS [facility] Administration Protocol Isosorbide Mononitrate 30 mg 04/22/20 22:00 04/23/20 21:07 Imdur - PO 30 mg HS [facility] Administration Morphine Sulfate 30 mg 04/21/20 14:04 04/24/20 09:07 Ms Contin - PO 30 mg BID [facility] Administration Nystatin 1 applic 04/21/20 14:00 04/24/20 09:07 Mycostatin Cream - TP 1 applic BID [facility] Administration Oxycodone HCl 20 mg 04/23/20 11:34 04/24/20 12:43 Roxicodone - PO 20 mg Q4H PRN Administration PAIN LEVEL 7 - 10 Pantoprazole Sodium 40 mg 04/21/20 10:00 04/24/20 09:07 Protonix - PO 40 mg DAILY [facility] Administration Polyethylene Glycol 17 gm 04/21/20 10:00 04/24/20 09:07 Miralax (For Daily Use) - PO Not Given BID [facility] Prochlorperazine Maleate 5 mg 04/22/20 13:00 04/22/20 23:08 Compazine - PO 5 mg Q6H PRN Administration NAUSEA AND/OR VOMITING Rosuvastatin Calcium 10 mg 04/21/20 22:00 04/23/20 21:07 Crestor - PO 10 mg HS [facility] Administration Warfarin Sodium 4 mg 04/23/20 18:00 04/23/20 18:12 Coumadin - PO 4 mg DAILY@1800 [facility] Administration ASSESSMENT AND PLAN: This is a 70 year old man with a history of atrial fib, CAD, CABG, ischemic CM, HTN, hyperlipidemia, chronic systolic heart failure, 2nd degree AVB, pacemaker, type 2 DM, chronic hypoxic respiratory failure, COPD, anemia, ESRD, PUD, CVA who presented to the ED with SOB. 1. Acute on chronic systolic heart failure - Fluid management with HD, Lasix on non-HD days 2. Nausea and vomiting - Improved 3. RLE cellulitis - Improving - Afebrile, WBC improving - Continue Unasyn (day 4 of abx) 4. 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
--- NOTE | 2020-04-24 17:11 | CONSULT ---
- Consultation REQUESTING PROVIDER: CONSULT REQUEST: We have been asked to surgically evaluate this patient for le wounds/pvd. PCP:Jessee Ying MD HISTORY OF PRESENT ILLNESS: 70 y/o M PMHx HFrEF (EF 30-35%, Global LV Hypokinesis), CAD (S/P quadruple CABG), Ischemic Cardiomyopathy s/p PPM, 1st degree AV Block, CVA, COPD (on 4L Home O2), ESRD on HD (Makes urine, on HD MWF) IDDM, a/w SOB found to have acute on chronic chf. Pt is a poor historian due to cva in the past. Pt reports his ambulation is only approx 1/2 block with the use of a walker, he is limited by sob. Has not been evaluated by Vascular surgery in the past to his recollection. Does not recall having any peripheral stents placed or interventions with vascular surgery. Reports he has had le foot wounds for the past 3-4 months. Has been following up on the 5th floor with [facility] [employer], Dr Velez. Had a recent duplex in March. Has h/o tobacco abuse 5 ppd for many years, quit 5 year ago. PMHx: as above PSHx: CABG (01/2019), Right Hip nail, Cardiac cath with 5 prior stents Home Medications Medication Instructions Recorded Rosuvastatin [Crestor -] 20 mg PO HS 04/15/19 Warfarin Na [Coumadin -] 5 mg PO DAILY@1800 #30 tablet 12/02/19 Ferrous Sulfate 325 mg PO DAILY 04/20/20 Folic Acid 1 mg PO DAILY 04/20/20 Furosemide 80 mg PO DAILY 04/20/20 Isosorbide Mononitrate [Imdur -] 30 mg PO HS 04/20/20 Pantoprazole Sodium 40 mg PO DAILY 04/20/20 Pregabalin [Lyrica] 50 mg PO DAILY 04/20/20 Morphine Sulfate [Morphine Sulfate 30 mg PO BID 04/21/20 ER] oxyCODONE HCL [Roxicodone -] 20 mg PO Q6H PRN 04/21/20 Allergies Allergy/AdvReac Type Severity Reaction Status Date / Time No Known Allergies Allergy Verified 04/07/20 10:05 REVIEW OF SYSTEMS: CONSTITUTIONAL: Absent: fever, chills CARDIOVASCULAR: Absent: chest pain RESPIRATORY: Absent: cough, shortness of breath GASTROINTESTINAL: Absent: abdominal pain PHYSICAL EXAM: GENERAL: Awake, alert, and fully oriented, in no acute distress. HEAD: Normal with no signs of trauma. LOWER EXTREMITIES: R foot with approx 2.5x2.5cm hard eschar on medial aspect of great toe. R foot with multiple small wounds with stable dry eschars noted throughout forefoot. L foot with 2nd toe ulcer approx .5cm stable eschar. No areas of erythema or drainage noted. Vasc: biphasic fem pulses b/l, L pop biphasic signal, R pop monophasic signal, R PT with monophasic signal, L marzena with monophasic signal. Vital Signs Temperature 98.1 F 04/24/20 14:00 Pulse Rate 69 04/24/20 14:00 Respiratory Rate 14 04/24/20 14:00 Blood Pressure 121/55 L 04/24/20 14:00 O2 Sat by Pulse Oximetry (%) 97 04/24/20 09:00 Lab Results WBC 11.2 K/mm3 (4.0-10.0) H 04/24/20 05:55 RBC 3.84 M/mm3 (4.00-5.60) L 04/24/20 05:55 Hgb 10.9 GM/dL (11.7-16.9) L 04/24/20 05:55 Hct 35.3 % (35.4-49) L 04/24/20 05:55 MCV 92.0 fl (80-96) 04/24/20 05:55 MCHC 30.9 g/dl (32.0-35.9) L 04/24/20 05:55 RDW 19.4 % (11.9-15.9) H 04/24/20 05:55 Plt Count 152 K/MM3 (134-434) 04/24/20 05:55 INR 2.16 (0.83-1.09) H 04/24/20 05:55 Sodium 136 mmol/L (136-145) 04/24/20 05:55 Potassium 3.4 mmol/L (3.5-5.1) L 04/24/20 05:55 Chloride 102 mmol/L (98-107) 04/24/20 05:55 Carbon Dioxide 29 mmol/L (21-32) 04/24/20 05:55 Anion Gap 5 MMOL/L (8-16) L 04/24/20 05:55 BUN 49.8 mg/dL (7-18) H 04/24/20 05:55 Creatinine 2.8 mg/dL (0.55-1.3) H 04/24/20 05:55 Random Glucose 143 mg/dL (74-106) H 04/24/20 05:55 Calcium 8.1 mg/dL (8.5-10.1) L 04/24/20 05:55 A/P: 70 y/o M PMHx HFrEF (EF 30-35%, Global LV Hypokinesis), CAD (S/P quadruple CABG), Ischemic Cardiomyopathy s/p PPM, 1st degree AV Block, CVA, COPD (on 4L Home O2), ESRD on HD (Makes urine, on HD MWF) IDDM, a/w SOB found to have acute on chronic chf. Pt with chronic wounds b/l feet from nonhealing puppy bites +IDDM Pt with multiple comorbidities, chronically ill. On HD since November (permanent per medical team). Likely with significant vascular disease (femoral pulses only appreciated via doppler), however high risk due to comorbidities. CTA LEs ordered for evaluation of vasculature. d/w attending Dr Carson
[2020-04-24] MEDS: WARFARIN NA 2 MG TABLET PO SCH (18:36)
[2020-04-24] MEDS: ISOSORBIDE MONONITRATE 30 MG TAB.SR.24H (FP) PO SCH (22:13)
[2020-04-24] MEDS: ROSUVASTATIN CA 10 MG TABLET (FP) PO SCH (22:13)
[2020-04-25] MEDS: oxyCODONE HCL 5 MG TABLET PO PRN ×6 (00:10→20:17)
[2020-04-25] MEDS ORDERED: MELATONIN 5 MG TABLETS PO ONE ×2 (00:39→23:04)
[2020-04-25] MEDS: ACETAMINOPHEN 325 MG TABLET (FP) PO PRN ×4 (02:56→18:58)
[2020-04-25] MEDS: INSULIN SLIDING SCALE (NOVOLOG) 1 VIAL SQ SCH ×4 (06:16→22:05)
[2020-04-25] MEDS: FOLIC ACID 1 MG TABLET (FP) PO SCH (09:28)
[2020-04-25] MEDS: FERROUS SO4 325 MG TABLET (FP) PO SCH (09:28)
[2020-04-25] MEDS: PANTOPRAZOLE 40 MG TABLET PO SCH (09:29)
[2020-04-25] MEDS: COLLAGENASE CLOSTRIDIUM HIST. 30 GRAMS TUBE TP SCH (09:29)
[2020-04-25] MEDS: POLYETHYLENE GLYCOL 3350 119 GM BTL PO SCH ×2 (09:29→22:04)
[2020-04-25] MEDS: NYSTATIN 100,000 UNIT/GM TOPICAL CREAM 15 GM TUBE TP SCH ×2 (09:29→22:04)
[2020-04-25] MEDS: morphine SO4 SUSTAINED ACTING 30 MG TABLET.SA PO SCH ×2 (09:29→22:02)
--- NOTE | 2020-04-25 12:41 | PN ---
<Neha Michelle - Last Filed: 04/25/20 16:42> Physical Exam: SUBJECTIVE: Patient seen and examined. No acute overnight events. S/p HD yesterday tolerated well. OBJECTIVE: Vital Signs Period Temp Pulse Resp BP Sys/Chandra Pulse Ox Last 24 Hr 97.6 F-98.1 F 62-75 14-17 112-122/55-82 96-100 GENERAL: AAOx3, in no acute distress. HEENT: NCAT. MMM. No JVD. LUNGS: B/l rhonchi, no accessory muscle use. HEART: Regular rate and rhythm, S1, S2 without murmur, rub or gallop. ABDOMEN: Soft, ntnd, normoactive bowel sounds, no guarding. EXTREMITIES: 1+ pulses palpated DP/ TP. Right 1st digit gangrenous ulcer ~3x4cm; multiple healing wounds to R dorsal foot. Left 2nd digit gangrenous ulcer. Normal temp to touch. No LE edema. SKIN: Midline sternotomy healed scar. R permacath in place c/d/i. Laboratory Results - last 24 hr 04/24/20 04/24/20 04/25/20 16:39 22:17 05:39 POC Glucometer 128 142 143 Active Medications Generic Name Dose Route Start Last Admin Trade Name Freq PRN Reason Stop Dose Admin Acetaminophen 650 mg 04/22/20 17:30 04/25/20 09:30 Tylenol - PO 650 mg Q6H PRN Administration Fever Or Pain Collagenase 1 applic 04/22/20 10:00 04/25/20 09:29 Santyl - TP 1 applic DAILY [facility] Administration Protocol Ferrous Sulfate 325 mg 04/21/20 10:00 04/25/20 09:28 Feosol - PO 325 mg DAILY [facility] Administration Folic Acid 1 mg 04/21/20 10:00 04/25/20 09:28 Folic Acid - PO 1 mg DAILY [facility] Administration Ampicillin Sodium/Sulbactam 100 mls @ 200 mls/hr 04/24/20 16:00 04/24/20 16:05 Sodium 3 gm/ Sodium Chloride IVPB 200 mls/hr Q24H [facility] Administration Insulin Aspart 1 vial 04/21/20 07:00 04/25/20 06:16 Novolog Vial Sliding Scale - SQ Not Given ACHS [facility] Protocol Isosorbide Mononitrate 30 mg 04/22/20 22:00 04/24/20 22:13 Imdur - PO 30 mg HS [facility] Administration Morphine Sulfate 30 mg 04/21/20 14:04 04/25/20 09:29 Ms Contin - PO 30 mg BID [facility] Administration Nystatin 1 applic 04/21/20 14:00 04/25/20 09:29 Mycostatin Cream - TP 1 applic BID [facility] Administration Oxycodone HCl 20 mg 04/23/20 11:34 04/25/20 08:00 Roxicodone - PO 20 mg Q4H PRN Administration PAIN LEVEL 7 - 10 Pantoprazole Sodium 40 mg 04/21/20 10:00 04/25/20 09:29 Protonix - PO 40 mg DAILY [facility] Administration Polyethylene Glycol 17 gm 04/21/20 10:00 04/25/20 09:29 Miralax (For Daily Use) - PO Not Given BID [facility] Prochlorperazine Maleate 5 mg 04/22/20 13:00 04/22/20 23:08 Compazine - PO 5 mg Q6H PRN Administration NAUSEA AND/OR VOMITING Rosuvastatin Calcium 10 mg 04/21/20 22:00 04/24/20 22:13 Crestor - PO 10 mg HS [facility] Administration Warfarin Sodium 4 mg 04/23/20 18:00 04/24/20 18:36 Coumadin - PO 4 mg DAILY@1800 [facility] Administration ASSESSMENT/PLAN: 70 y.o. M PMH A-fib, HFrEF (EF 30-35%, Global LV Hypokinesis), CAD (S/P CABG), Ischemic Cardiomyopathy s/p PPM, 1st degree AV Block, CVA, COPD (on 4L Home O2), ESRD on HD (Makes minimal urine, on HD MWF) IDDM, presented w/ shortness of breath #Acute on chronic diastolic CHF exacerbation -continue lasix on non-HD days -cont HD M/W/F -LE U/S negative for DVT- PE unlikely -CXR: no acute disease. cardiomegaly -renal following -echo 04/21: 25 % EF. LVH. Decr systolic function. Grade II diastolic dysfunction. severe hypokinesis. LA dilation. Mild/ mod pulm HTN -monitor Is & Os -daily weights #RLE wound, LLE wound, possible cellulitis -surgery recs appreciated -f/u CTA b/l LE-- will have imaging done 04/26 as pt is ESRD and will have HD on friday 04/27 -continue IV abx: Unasyn 3g daily- abx started 04/21 (switched from clinda) today day #5 -seen by podiatry: rec paulinayl daily to b/l foot ulcers. no acute surgical intervention at this time. f/u outpatient wound center -R foot XR negative for fracture or OM -blood cultures NGTD -Nystatin for toes #Nausea/ vomiting -IV abx changed from clindamycin to unasyn -abd XR negative for sbo or ileus; pt is passing flatus and BMs -F/u C. Diff -improving #Supratherapeutic INR -INR 3.87 on admission -warfarin has been resumed -yesterday within therapeutic range; cont to monitor PT/INR #A-fib -coumadin resumed #ESRD -Cont HD schedule -Nephro following #HTN -on Imdur 30mg HS at home; holding post HD in setting of hypotension #Chronic back pain -home morphine ER 30mg BID, oxycodone 20mg q4-6hrs PRN-- confirmed prescribed by Dr. Isbell-- reinstated #CAD -Patient previously on ASA/Plavix given stent hx however was d/c'd end of 2018 2/2 GIB (gastric ulcer, erosions, anemia) #FEN -no standing fluids -trend & replete lytes prn -renal diet #PPX dvt: on coumadin -GI: protonix 40mg po daily #Dispo ctm telemetry pending CTA LE's Visit type - Emergency Visit Emergency Visit: No - New Patient This patient is new to me today: No - Critical Care Critical Care patient: No ATTENDING PHYSICIAN STATEMENT I saw and evaluated the patient. I reviewed the resident's note and discussed the case with the resident. I agree with the resident's findings and plan as documented. SUBJECTIVE: OBJECTIVE: ASSESSMENT AND PLAN: <Henrry Rivas - Last Filed: 04/25/20 19:41> Physical Exam: SUBJECTIVE: Patient seen and examined OBJECTIVE: Vital Signs Period Temp Pulse Resp BP Sys/Chandra Pulse Ox Last 24 Hr 97.6 F-98.6 F 62-67 16-18 113-122/64-82 96-100 GENERAL: The patient is awake, alert, and fully oriented, in no acute distress. HEAD: Normal with no signs of trauma. EYES: PERRL, extraocular movements intact, sclera anicteric, conjunctiva clear. No ptosis. ENT: Ears normal, nares patent, oropharynx clear without exudates, moist mucous membranes. NECK: Trachea midline, full range of motion, supple. LUNGS: Breath sounds equal, clear to auscultation bilaterally, no wheezes, no crackles, no accessory muscle use. HEART: Regular rate and rhythm, S1, S2 without murmur, rub or gallop. ABDOMEN: Soft, nontender, nondistended, normoactive bowel sounds, no guarding, no rebound, no hepatosplenomegaly, no masses. EXTREMITIES: 2+ pulses, warm, well-perfused, no edema. NEUROLOGICAL: Cranial nerves II through XII grossly intact. Normal speech, gait not observed. PSYCH: Normal mood, normal affect. SKIN: Warm, dry, normal turgor, no rashes or lesions noted Laboratory Results - last 24 hr 04/24/20 04/25/20 04/25/20 22:17 05:39 12:44 WBC 10.9 H RBC 4.14 Hgb 12.2 Hct 38.7 MCV 93.6 MCH 29.6 MCHC 31.6 L RDW 19.1 H Plt Count 172 MPV 9.2 PT with INR INR Sodium Potassium Chloride Carbon Dioxide Anion Gap BUN Creatinine Est GFR (CKD-EPI)AfAm Est GFR (CKD-EPI)NonAf POC Glucometer 142 143 Random Glucose Calcium Total Bilirubin AST ALT Alkaline Phosphatase Total Protein Albumin 04/25/20 04/25/20 04/25/20 12:44 12:44 17:21 WBC RBC Hgb Hct MCV MCH MCHC RDW Plt Count MPV PT with INR 37.60 H INR 3.15 H Sodium 137 Potassium 3.3 L Chloride 98 Carbon Dioxide 30 Anion Gap 9 BUN 35.6 H Creatinine 2.8 H Est GFR (CKD-EPI)AfAm 24.99 Est GFR (CKD-EPI)NonAf 21.56 POC Glucometer 106 Random Glucose 164 H Calcium 8.4 L Total Bilirubin 0.5 AST 12 L ALT 30 Alkaline Phosphatase 100 Total Protein 6.5 Albumin 3.5 Active Medications Generic Name Dose Route Start Last Admin Trade Name Freq PRN Reason Stop Dose Admin Acetaminophen 650 mg 04/22/20 17:30 04/25/20 18:58 Tylenol - PO 650 mg Q6H PRN Administration Fever Or Pain Collagenase 1 applic 04/22/20 10:00 04/25/20 09:29 Santyl - TP 1 applic DAILY [facility] Administration Protocol Ferrous Sulfate 325 mg 04/21/20 10:00 04/25/20 09:28 Feosol - PO 325 mg DAILY [facility] Administration Folic Acid 1 mg 04/21/20 10:00 04/25/20 09:28 Folic Acid - PO 1 mg DAILY [facility] Administration Ampicillin Sodium/Sulbactam 100 mls @ 200 mls/hr 04/24/20 16:00 04/25/20 15:30 Sodium 3 gm/ Sodium Chloride IVPB 200 mls/hr Q24H [facility] Administration Insulin Aspart 1 vial 04/21/20 07:00 04/25/20 16:49 Novolog Vial Sliding Scale - SQ Not Given ACHS [facility] Protocol Isosorbide Mononitrate 30 mg 04/22/20 22:00 04/24/20 22:13 Imdur - PO 30 mg HS [facility] Administration Morphine Sulfate 30 mg 04/21/20 14:04 04/25/20 09:29 Ms Contin - PO 30 mg BID [facility] Administration Nystatin 1 applic 04/21/20 14:00 04/25/20 09:29 Mycostatin Cream - TP 1 applic BID [facility] Administration Oxycodone HCl 20 mg 04/23/20 11:34 04/25/20 16:27 Roxicodone - PO 20 mg Q4H PRN Administration PAIN LEVEL 7 - 10 Pantoprazole Sodium 40 mg 04/21/20 10:00 04/25/20 09:29 Protonix - PO 40 mg DAILY [facility] Administration Polyethylene Glycol 17 gm 04/21/20 10:00 04/25/20 09:29 Miralax (For Daily Use) - PO Not Given BID [facility] Prochlorperazine Maleate 5 mg 04/22/20 13:00 04/22/20 23:08 Compazine - PO 5 mg Q6H PRN Administration NAUSEA AND/OR VOMITING Rosuvastatin Calcium 10 mg 04/21/20 22:00 04/24/20 22:13 Crestor - PO 10 mg HS [facility] Administration Warfarin Sodium 4 mg 04/23/20 18:00 04/25/20 17:38 Coumadin - PO 4 mg DAILY@1800 [facility] Administration ASSESSMENT/PLAN: ATTENDING PHYSICIAN STATEMENT I saw and evaluated the patient. I reviewed the resident's note and discussed the case with the resident. I agree with the resident's findings and plan as documented. Attending attestation: Patient seen and examined at bedside during my rounds. He endorses he would like to go home. His last dialysis session was yesterday. Since the patient has a right first toe gangrenous ulcer and multiple wounds to bilateral lower extremities with poorly palpable pulses which are dopplerable the patient requires bilateral lower extremity CTA with runoff per vascular surgery. His volume status has significantly improved. On exam he is alert and awake. He is hard of hearing. He has moist mucous membranes. He has bilateral rhonchorous breath sounds on lung exam. He has a regular rate and rhythm on cardiac exam without any murmurs appreciated. Abdomen is soft nontender nondistended. Bilateral lower extremities are warm with a right first digit gangrenous ulcer and left second digit gangrenous ulcer as well. No purulent drainage. This is dry gangrene. For the patient's acute on chronic combined systolic and diastolic congestive heart failure will give a dose of Lasix today per nephrology. Continue dialysis per nephrology. Continue Unasyn for bilateral lower extremity possible cellulitis. The patient will require an AV fistula as an outpatient. Cultures have demonstrated no growth to date. Continue Coumadin for atrial fibrillation. The patient is rate controlled. Replete hypokalemia. Rest as per resident's note above.
[2020-04-25 12:55] LABS: HEMATOCRIT 38.7 % (35.4-49); HEMOGLOBIN 12.2 GM/dL (11.7-16.9); MCH 29.6 pg (25.7-33.7); MCHC 31.6 g/dl (32.0-35.9); MEAN CELL VOLUME 93.6 fl (80-96); MEAN PLT VOLUME 9.2 fl (7.5-11.1); PLATELET COUNT 172 K/MM3 (134-434); RBC 4.14 M/mm3 (4.00-5.60); RDW 19.1 % (11.9-15.9); WHITE BLOOD COUNT 10.9 K/mm3 (4.0-10.0)
[2020-04-25 13:03] LABS: INR 3.15 (0.83-1.09); PROTHROMBIN TIME (PATIENT) 37.6 SEC (9.7-13.0)
[2020-04-25 13:36] LABS: ALBUMIN 3.5 g/dl (3.4-5.0); BILIRUBIN,TOTAL 0.5 mg/dL (0.2-1); BLOOD UREA NITROGEN 35.6 mg/dL (7-18); CALCIUM 8.4 mg/dL (8.5-10.1); CREATININE 2.8 mg/dL (0.55-1.3); POTASSIUM 3.3 mmol/L (3.5-5.1); TOT PROT 6.5 g/dl (6.4-8.2)
--- NOTE | 2020-04-25 14:06 | EKG ---
Test Reason : Blood Pressure : / mmHG Vent. Rate : 079 BPM Atrial Rate : 068 BPM P-R Int : 000 ms QRS Dur : 142 ms QT Int : 454 ms P-R-T Axes : 000 -57 111 degrees QTc Int : 520 ms POOR DATA QUALITY, INTERPRETATION MAY BE ADVERSELY AFFECTED SINUS RHYTHM WITH 1ST DEGREE A-V BLOCK LEFT AXIS DEVIATION RIGHT BUNDLE BRANCH BLOCK LEFT ANTERIOR FASCICULAR BLOCK LEFT VENTRICULAR HYPERTROPHY WITH REPOLARIZATION ABNORMALITY POSSIBLE LATERAL INFARCT , AGE UNDETERMINED INFERIOR INFARCT , AGE UNDETERMINED ABNORMAL ECG Confirmed by MD GENEVA, GRETTA ([id number]) on 04/25/2020 2:06:03 PM Referred By: Confirmed By:GRETTA BEAN MD
[2020-04-25] MEDS: AMPICILLIN NA/SULBACTAM NA 3 GM in SODIUM CHLORIDE 100 ML IVPB SCH (15:30)
[2020-04-25] MEDS ORDERED: PT OWN MED DRAWER 7, Y5N ONE (17:28)
[2020-04-25] MEDS: WARFARIN NA 2 MG TABLET PO SCH (17:38)
[2020-04-25] MEDS ORDERED: POTASSIUM CHLORIDE TABS 20 MEQ TABLET.ER (FP) PO ONE (17:47)
[2020-04-25] MEDS ORDERED: FUROSEMIDE 40 MG/4 ML INJECTABLE VIAL IVPUSH ONE (17:51)
--- NOTE | 2020-04-25 17:51 | PN ---
Progress Note, Physician History of Present Illness: Pt seen and examined at bedside. He is awake and alert. He denies shortness of breath. - Current Medication List Current Medications: Active Medications Acetaminophen (Tylenol -) 650 mg PO Q6H PRN PRN Reason: Fever Or Pain Last Admin: 04/25/20 13:00 Dose: 650 mg Documented by: Collagenase (Santyl -) 1 applic TP DAILY [facility]; Protocol Last Admin: 04/25/20 09:29 Dose: 1 applic Documented by: Ferrous Sulfate (Feosol -) 325 mg PO DAILY [facility] Last Admin: 04/25/20 09:28 Dose: 325 mg Documented by: Folic Acid (Folic Acid -) 1 mg PO DAILY [facility] Last Admin: 04/25/20 09:28 Dose: 1 mg Documented by: Ampicillin Sodium/Sulbactam (Sodium 3 gm/ Sodium Chloride) 100 mls @ 200 mls/hr IVPB Q24H [facility] Last Admin: 04/25/20 15:30 Dose: 200 mls/hr Documented by: Insulin Aspart (Novolog Vial Sliding Scale -) 1 vial SQ ACHS [facility]; Protocol Last Admin: 04/25/20 16:49 Dose: Not Given Documented by: Isosorbide Mononitrate (Imdur -) 30 mg PO HS [facility] Last Admin: 04/24/20 22:13 Dose: 30 mg Documented by: Morphine Sulfate (Ms Contin -) 30 mg PO BID [facility] Last Admin: 04/25/20 09:29 Dose: 30 mg Documented by: Nystatin (Mycostatin Cream -) 1 applic TP BID [facility] Last Admin: 04/25/20 09:29 Dose: 1 applic Documented by: Oxycodone HCl (Roxicodone -) 20 mg PO Q4H PRN PRN Reason: PAIN LEVEL 7 - 10 Last Admin: 04/25/20 16:27 Dose: 20 mg Documented by: Pantoprazole Sodium (Protonix -) 40 mg PO DAILY [facility] Last Admin: 04/25/20 09:29 Dose: 40 mg Documented by: Polyethylene Glycol (Miralax (For Daily Use) -) 17 gm PO BID [facility] Last Admin: 04/25/20 09:29 Dose: Not Given Documented by: Potassium Chloride (K-Dur -) 20 meq PO ONCE ONE Stop: 04/25/20 17:48 Prochlorperazine Maleate (Compazine -) 5 mg PO Q6H PRN PRN Reason: NAUSEA AND/OR VOMITING Last Admin: 04/22/20 23:08 Dose: 5 mg Documented by: Rosuvastatin Calcium (Crestor -) 10 mg PO HS [facility] Last Admin: 04/24/20 22:13 Dose: 10 mg Documented by: Warfarin Sodium (Coumadin -) 4 mg PO DAILY@1800 [facility] Last Admin: 04/25/20 17:38 Dose: 4 mg Documented by: - Objective Vital Signs: Vital Signs Temperature 97.6 F 04/25/20 10:00 Pulse Rate 67 04/25/20 10:00 Respiratory Rate 16 04/25/20 10:00 Blood Pressure 122/69 04/25/20 10:00 O2 Sat by Pulse Oximetry (%) 96 04/25/20 09:00 Constitutional: Yes: Calm Eyes: Yes: Conjunctiva Clear HENT: Yes: Atraumatic Cardiovascular: Yes: S1, S2 Respiratory: Yes: CTA Bilaterally, On Nasal O2 Gastrointestinal: Yes: Soft Genitourinary: Yes: WNL Musculoskeletal: Yes: WNL Edema: Yes Edema: LLE: Trace, RLE: Trace Neurological: Yes: Oriented Psychiatric: Yes: Oriented Labs: CBC, BMP 04/25/20 12:44 04/25/20 12:44 INR, PTT INR 3.15 (0.83-1.09) H 04/25/20 12:44 Problem List - Problems (1) ESRD (end stage renal disease) Code(s): N18.6 - END STAGE RENAL DISEASE (2) COPD (chronic obstructive pulmonary disease) Code(s): J44.9 - CHRONIC OBSTRUCTIVE PULMONARY DISEASE, UNSPECIFIED Assessment/Plan Current Medications Generic Name Dose Route Start Last Admin Trade Name Freq PRN Reason Stop Dose Admin Acetaminophen 650 mg 04/22/20 17:30 04/25/20 13:00 Tylenol - PO 650 mg Q6H PRN Administration Fever Or Pain Collagenase 1 applic 04/22/20 10:00 04/25/20 09:29 Santyl - TP 1 applic DAILY [facility] Administration Protocol Ferrous Sulfate 325 mg 04/21/20 10:00 04/25/20 09:28 Feosol - PO 325 mg DAILY [facility] Administration Folic Acid 1 mg 04/21/20 10:00 04/25/20 09:28 Folic Acid - PO 1 mg DAILY [facility] Administration Ampicillin Sodium/Sulbactam 100 mls @ 200 mls/hr 04/24/20 16:00 04/25/20 15:30 Sodium 3 gm/ Sodium Chloride IVPB 200 mls/hr Q24H [facility] Administration Insulin Aspart 1 vial 04/21/20 07:00 04/25/20 16:49 Novolog Vial Sliding Scale - SQ Not Given ACHS [facility] Protocol Isosorbide Mononitrate 30 mg 04/22/20 22:00 04/24/20 22:13 Imdur - PO 30 mg HS [facility] Administration Morphine Sulfate 30 mg 04/21/20 14:04 04/25/20 09:29 Ms Contin - PO 30 mg BID [facility] Administration Nystatin 1 applic 04/21/20 14:00 04/25/20 09:29 Mycostatin Cream - TP 1 applic BID [facility] Administration Oxycodone HCl 20 mg 04/23/20 11:34 04/25/20 16:27 Roxicodone - PO 20 mg Q4H PRN Administration PAIN LEVEL 7 - 10 Pantoprazole Sodium 40 mg 04/21/20 10:00 04/25/20 09:29 Protonix - PO 40 mg DAILY [facility] Administration Polyethylene Glycol 17 gm 04/21/20 10:00 04/25/20 09:29 Miralax (For Daily Use) - PO Not Given BID [facility] Potassium Chloride 20 meq 04/25/20 17:47 K-Dur - PO 04/25/20 17:48 ONCE ONE Prochlorperazine Maleate 5 mg 04/22/20 13:00 04/22/20 23:08 Compazine - PO 5 mg Q6H PRN Administration NAUSEA AND/OR VOMITING Rosuvastatin Calcium 10 mg 04/21/20 22:00 04/24/20 22:13 Crestor - PO 10 mg HS [facility] Administration Warfarin Sodium 4 mg 04/23/20 18:00 04/25/20 17:38 Coumadin - PO 4 mg DAILY@1800 [facility] Administration Impression 1. ESRD 2. shortness of breath 3. copd 4. chf 5. positive anti-histone ab 6. fluid overload 7. cva 8. anemia Plan - pt had HD yesterday - replace potassium - will give a dose of lasix - next HD on Monday - renal diet - avf as outpt - volume status is improving - monitor pulse ox - cultures are negative so far, cont to monitor
[2020-04-25] MEDS: ROSUVASTATIN CA 10 MG TABLET (FP) PO SCH (22:03)
[2020-04-25] MEDS: ISOSORBIDE MONONITRATE 30 MG TAB.SR.24H (FP) PO SCH (22:03)
[2020-04-25] MEDS: PROCHLORPERAZINE MALEATE 5 MG TABLET PO PRN (23:40)
[2020-04-26] MEDS: oxyCODONE HCL 5 MG TABLET PO PRN ×5 (01:27→17:47)
[2020-04-26] MEDS: ACETAMINOPHEN 325 MG TABLET (FP) PO PRN ×3 (01:29→16:34)
[2020-04-26] MEDS: INSULIN SLIDING SCALE (NOVOLOG) 1 VIAL SQ SCH ×4 (06:45→21:55)
[2020-04-26 06:50] LABS: HEMATOCRIT 38.3 % (35.4-49); RBC 4.12 M/mm3 (4.00-5.60); WHITE BLOOD COUNT 10.9 K/mm3 (4.0-10.0)
[2020-04-26 06:51] LABS: ALBUMIN 3.4 g/dl (3.4-5.0); BILIRUBIN,TOTAL 0.7 mg/dL (0.2-1); BLOOD UREA NITROGEN 44.8 mg/dL (7-18); CALCIUM 8.1 mg/dL (8.5-10.1); CREATININE 3.3 mg/dL (0.55-1.3); MAGNESIUM 1.7 mg/dL (1.8-2.4); MCH 29.1 pg (25.7-33.7); MCHC 31.3 g/dl (32.0-35.9); MEAN PLT VOLUME 9.1 fl (7.5-11.1); PHOSPHOROUS 4.4 mg/dL (2.5-4.9); PLATELET COUNT 170 K/MM3 (134-434); POTASSIUM 3.8 mmol/L (3.5-5.1); RDW 19.2 % (11.9-15.9); TOT PROT 6.3 g/dl (6.4-8.2)
[2020-04-26] MEDS: morphine SO4 SUSTAINED ACTING 30 MG TABLET.SA PO SCH ×2 (09:45→21:54)
[2020-04-26] MEDS: PANTOPRAZOLE 40 MG TABLET PO SCH (09:46)
[2020-04-26] MEDS: FOLIC ACID 1 MG TABLET (FP) PO SCH (09:46)
[2020-04-26] MEDS: FERROUS SO4 325 MG TABLET (FP) PO SCH (09:46)
[2020-04-26] MEDS: POLYETHYLENE GLYCOL 3350 119 GM BTL PO SCH ×2 (09:46→21:30)
[2020-04-26] MEDS: NYSTATIN 100,000 UNIT/GM TOPICAL CREAM 15 GM TUBE TP SCH ×2 (09:47→21:29)
[2020-04-26] MEDS: COLLAGENASE CLOSTRIDIUM HIST. 30 GRAMS TUBE TP SCH (09:47)
[2020-04-26] MEDS ORDERED: MAG HYDROX/AL HYDROX/SIMETH 30 ML UNIT-DOSE CUP PO ONE (11:04)
[2020-04-26] MEDS ORDERED: FUROSEMIDE 40 MG/4 ML INJECTABLE VIAL IVPUSH ONE (12:41)
--- NOTE | 2020-04-26 12:43 | PN ---
Progress Note, Physician History of Present Illness: Pt seen and examined at bedside. He is awake and alert. He denies shortness of breath. - Current Medication List Current Medications: Active Medications Acetaminophen (Tylenol -) 650 mg PO Q6H PRN PRN Reason: Fever Or Pain Last Admin: 04/26/20 09:45 Dose: 650 mg Documented by: Collagenase (Santyl -) 1 applic TP DAILY [facility]; Protocol Last Admin: 04/26/20 09:47 Dose: 1 applic Documented by: Ferrous Sulfate (Feosol -) 325 mg PO DAILY [facility] Last Admin: 04/26/20 09:46 Dose: 325 mg Documented by: Folic Acid (Folic Acid -) 1 mg PO DAILY [facility] Last Admin: 04/26/20 09:46 Dose: 1 mg Documented by: Ampicillin Sodium/Sulbactam (Sodium 3 gm/ Sodium Chloride) 100 mls @ 200 mls/hr IVPB Q24H [facility] Last Admin: 04/25/20 15:30 Dose: 200 mls/hr Documented by: Insulin Aspart (Novolog Vial Sliding Scale -) 1 vial SQ ACHS [facility]; Protocol Last Admin: 04/26/20 11:58 Dose: Not Given Documented by: Isosorbide Mononitrate (Imdur -) 30 mg PO HS [facility] Last Admin: 04/25/20 22:03 Dose: 30 mg Documented by: Morphine Sulfate (Ms Contin -) 30 mg PO BID [facility] Last Admin: 04/26/20 09:45 Dose: 30 mg Documented by: Nystatin (Mycostatin Cream -) 1 applic TP BID [facility] Last Admin: 04/26/20 09:47 Dose: 1 applic Documented by: Oxycodone HCl (Roxicodone -) 20 mg PO Q4H PRN PRN Reason: PAIN LEVEL 7 - 10 Last Admin: 04/26/20 09:45 Dose: 20 mg Documented by: Pantoprazole Sodium (Protonix -) 40 mg PO DAILY [facility] Last Admin: 04/26/20 09:46 Dose: 40 mg Documented by: Polyethylene Glycol (Miralax (For Daily Use) -) 17 gm PO BID [facility] Last Admin: 04/26/20 09:46 Dose: Not Given Documented by: Prochlorperazine Maleate (Compazine -) 5 mg PO Q6H PRN PRN Reason: NAUSEA AND/OR VOMITING Last Admin: 04/25/20 23:40 Dose: 5 mg Documented by: Rosuvastatin Calcium (Crestor -) 10 mg PO HS [facility] Last Admin: 04/25/20 22:03 Dose: 10 mg Documented by: Warfarin Sodium (Coumadin -) 4 mg PO DAILY@1800 [facility] Last Admin: 04/25/20 17:38 Dose: 4 mg Documented by: - Objective Vital Signs: Vital Signs Temperature 98.6 F 04/26/20 10:00 Pulse Rate 63 04/26/20 10:00 Respiratory Rate 18 04/26/20 10:00 Blood Pressure 135/71 04/26/20 10:00 O2 Sat by Pulse Oximetry (%) 96 04/25/20 20:47 Constitutional: Yes: Calm Eyes: Yes: Conjunctiva Clear HENT: Yes: Atraumatic Neck: Yes: Supple Cardiovascular: Yes: S1, S2 Respiratory: Yes: CTA Bilaterally, On Nasal O2 Gastrointestinal: Yes: Soft Genitourinary: Yes: WNL Musculoskeletal: Yes: WNL Edema: Yes Edema: LLE: Trace, RLE: Trace Neurological: Yes: Oriented Psychiatric: Yes: Oriented Labs: CBC, BMP 04/26/20 05:40 04/26/20 05:40 INR, PTT INR 3.15 (0.83-1.09) H 04/25/20 12:44 Problem List - Problems (1) ESRD (end stage renal disease) Code(s): N18.6 - END STAGE RENAL DISEASE (2) COPD (chronic obstructive pulmonary disease) Code(s): J44.9 - CHRONIC OBSTRUCTIVE PULMONARY DISEASE, UNSPECIFIED Assessment/Plan Current Medications Generic Name Dose Route Start Last Admin Trade Name Manohar PRN Reason Stop Dose Admin Acetaminophen 650 mg 04/22/20 17:30 04/26/20 09:45 Tylenol - PO 650 mg Q6H PRN Administration Fever Or Pain Collagenase 1 applic 04/22/20 10:00 04/26/20 09:47 Santyl - TP 1 applic DAILY [facility] Administration Protocol Ferrous Sulfate 325 mg 04/21/20 10:00 04/26/20 09:46 Feosol - PO 325 mg DAILY [facility] Administration Folic Acid 1 mg 04/21/20 10:00 04/26/20 09:46 Folic Acid - PO 1 mg DAILY [facility] Administration Furosemide 40 mg 04/26/20 12:41 Lasix Injection - IVPUSH 04/26/20 12:42 ONCE ONE Ampicillin Sodium/Sulbactam 100 mls @ 200 mls/hr 04/24/20 16:00 04/25/20 15:30 Sodium 3 gm/ Sodium Chloride IVPB 200 mls/hr Q24H [facility] Administration Insulin Aspart 1 vial 04/21/20 07:00 04/26/20 11:58 Novolog Vial Sliding Scale - SQ Not Given ACHS [facility] Protocol Isosorbide Mononitrate 30 mg 04/22/20 22:00 04/25/20 22:03 Imdur - PO 30 mg HS [facility] Administration Morphine Sulfate 30 mg 04/21/20 14:04 04/26/20 09:45 Ms Contin - PO 30 mg BID [facility] Administration Nystatin 1 applic 04/21/20 14:00 04/26/20 09:47 Mycostatin Cream - TP 1 applic BID [facility] Administration Oxycodone HCl 20 mg 04/23/20 11:34 04/26/20 09:45 Roxicodone - PO 20 mg Q4H PRN Administration PAIN LEVEL 7 - 10 Pantoprazole Sodium 40 mg 04/21/20 10:00 04/26/20 09:46 Protonix - PO 40 mg DAILY [facility] Administration Polyethylene Glycol 17 gm 04/21/20 10:00 04/26/20 09:46 Miralax (For Daily Use) - PO Not Given BID [facility] Prochlorperazine Maleate 5 mg 04/22/20 13:00 04/25/20 23:40 Compazine - PO 5 mg Q6H PRN Administration NAUSEA AND/OR VOMITING Rosuvastatin Calcium 10 mg 04/21/20 22:00 04/25/20 22:03 Crestor - PO 10 mg HS [facility] Administration Warfarin Sodium 4 mg 04/23/20 18:00 04/25/20 17:38 Coumadin - PO 4 mg DAILY@1800 [facility] Administration Impression 1. ESRD 2. shortness of breath 3. copd 4. chf 5. positive anti-histone ab 6. fluid overload 7. cva 8. anemia Plan - will give lasix - repeat labs in am - HD tomorrow - cta tomorrow before HD - vascular eval - discussed with ICU team - renal diet - avf as outpt - volume status is improving - monitor pulse ox
[2020-04-26] MEDS ORDERED: SODIUM CHLORIDE 250 ML IV PRN (12:44)
--- NOTE | 2020-04-26 13:52 | PN ---
<Neha Michelle - Last Filed: 04/26/20 15:52> Physical Exam: SUBJECTIVE: Patient seen and examined. No acute complaints. Pt feels well. Endorsing back pain, chronic. OBJECTIVE: Vital Signs Period Temp Pulse Resp BP Sys/Chandra Pulse Ox Last 24 Hr 98 F-98.6 F 61-63 18-18 113-142/67-80 96-100 GENERAL: AAOx3, in no acute distress. HEENT: NCAT. MMM. No JVD. LUNGS: B/l rhonchi, no accessory muscle use. HEART: Regular rate and rhythm, S1, S2 without murmur, rub or gallop. ABDOMEN: Soft, ntnd, normoactive bowel sounds, no guarding. EXTREMITIES: 1+ pulses palpated DP/ TP. Right 1st digit gangrenous ulcer ~3x4cm; multiple healing wounds to R dorsal foot. Left 2nd digit gangrenous ulcer. Normal temp to touch. No LE edema. SKIN: Midline sternotomy healed scar. R permacath in place c/d/i. Laboratory Results - last 24 hr 04/25/20 04/25/20 04/26/20 17:21 22:01 05:40 WBC 10.9 H RBC 4.12 Hgb 12.0 Hct 38.3 MCV 93.0 MCH 29.1 MCHC 31.3 L RDW 19.2 H Plt Count 170 MPV 9.1 Sodium Potassium Chloride Carbon Dioxide Anion Gap BUN Creatinine Est GFR (CKD-EPI)AfAm Est GFR (CKD-EPI)NonAf POC Glucometer 106 132 Random Glucose Calcium Phosphorus Magnesium Total Bilirubin AST ALT Alkaline Phosphatase Total Protein Albumin 04/26/20 04/26/20 04/26/20 05:40 06:42 11:57 WBC RBC Hgb Hct MCV MCH MCHC RDW Plt Count MPV Sodium 136 Potassium 3.8 Chloride 98 Carbon Dioxide 29 Anion Gap 9 BUN 44.8 H Creatinine 3.3 H Est GFR (CKD-EPI)AfAm 20.49 Est GFR (CKD-EPI)NonAf 17.67 POC Glucometer 113 116 Random Glucose 113 H Calcium 8.1 L Phosphorus 4.4 Magnesium 1.7 L Total Bilirubin 0.7 AST 15 ALT 27 Alkaline Phosphatase 96 Total Protein 6.3 L Albumin 3.4 Active Medications Generic Name Dose Route Start Last Admin Trade Name Freq PRN Reason Stop Dose Admin Acetaminophen 650 mg 04/22/20 17:30 04/26/20 09:45 Tylenol - PO 650 mg Q6H PRN Administration Fever Or Pain Collagenase 1 applic 04/22/20 10:00 04/26/20 09:47 Santyl - TP 1 applic DAILY [facility] Administration Protocol Ferrous Sulfate 325 mg 04/21/20 10:00 04/26/20 09:46 Feosol - PO 325 mg DAILY [facility] Administration Folic Acid 1 mg 04/21/20 10:00 04/26/20 09:46 Folic Acid - PO 1 mg DAILY [facility] Administration Ampicillin Sodium/Sulbactam 100 mls @ 200 mls/hr 04/24/20 16:00 04/25/20 1 5:30 Sodium 3 gm/ Sodium Chloride IVPB 200 mls/hr Q24H [facility] Administration Sodium Chloride 250 mls @ 3,000 mls/hr 04/26/20 12:44 Normal Saline - IV 04/27/20 12:44 PRN PRN Hypotension during Dialysis Insulin Aspart 1 vial 04/21/20 07:00 04/26/20 11:58 Novolog Vial Sliding Scale - SQ Not Given ACHS [facility] Protocol Isosorbide Mononitrate 30 mg 04/22/20 22:00 04/25/20 22:03 Imdur - PO 30 mg HS [facility] Administration Morphine Sulfate 30 mg 04/21/20 14:04 04/26/20 09:45 Ms Contin - PO 30 mg BID [facility] Administration Nystatin 1 applic 04/21/20 14:00 04/26/20 09:47 Mycostatin Cream - TP 1 applic BID [facility] Administration Oxycodone HCl 20 mg 04/23/20 11:34 04/26/20 09:45 Roxicodone - PO 20 mg Q4H PRN Administration PAIN LEVEL 7 - 10 Pantoprazole Sodium 40 mg 04/21/20 10:00 04/26/20 09:46 Protonix - PO 40 mg DAILY [facility] Administration Polyethylene Glycol 17 gm 04/21/20 10:00 04/26/20 09:46 Miralax (For Daily Use) - PO Not Given BID [facility] Prochlorperazine Maleate 5 mg 04/22/20 13:00 04/25/20 23:40 Compazine - PO 5 mg Q6H PRN Administration NAUSEA AND/OR VOMITING Rosuvastatin Calcium 10 mg 04/21/20 22:00 04/25/20 22:03 Crestor - PO 10 mg HS [facility] Administration Warfarin Sodium 4 mg 04/23/20 18:00 04/25/20 17:38 Coumadin - PO 4 mg DAILY@1800 [facility] Administration ASSESSMENT/PLAN: 70 y.o. M PMH A-fib, HFrEF (EF 30-35%, Global LV Hypokinesis), CAD (S/P CABG), Ischemic Cardiomyopathy s/p PPM, 1st degree AV Block, CVA, COPD (on 4L Home O2), ESRD on HD (Makes minimal urine, on HD MWF) IDDM, presented w/ shortness of breath #Acute on chronic diastolic CHF exacerbation -continue lasix on non-HD days -cont HD M/W/F -LE U/S negative for DVT- PE unlikely -CXR: no acute disease. cardiomegaly -renal following -echo 04/21: 25 % EF. LVH. Decr systolic function. Grade II diastolic dysfunction. severe hypokinesis. LA dilation. Mild/ mod pulm HTN -monitor Is & Os -daily weights #RLE wound, LLE wound, possible cellulitis -surgery recs appreciated -f/u CTA b/l LE-- will have imaging done prior to HD on friday 04/27 -continue IV abx: Unasyn 3g daily- abx started 04/21 (switched from clinda) today day #6 -seen by podiatry: rec santyl daily to b/l foot ulcers. no acute surgical intervention at this time. f/u outpatient wound center -R foot XR negative for fracture or OM -blood cultures NGTD -Nystatin for toes #Nausea/ vomiting -IV abx changed from clindamycin to unasyn- day #6 total IV abx -abd XR negative for sbo or ileus; pt is passing flatus and BMs -F/u C. Diff -improving #Supratherapeutic INR -INR 3.87 on admission -warfarin resumed -now within therapeutic range; cont to monitor PT/INR #A-fib -coumadin resumed #ESRD -Cont HD schedule -Nephro following #HTN -on Imdur 30mg HS at home; holding post HD in setting of hypotension #Chronic back pain -home morphine ER 30mg BID, oxycodone 20mg q4-6hrs PRN-- confirmed prescribed by Dr. Isbell-- reinstated #CAD -Patient previously on ASA/Plavix given stent hx however was d/c'd end of 2018 2/2 GIB (gastric ulcer, erosions, anemia) #FEN -no standing fluids -trend & replete lytes prn -renal diet #PPX dvt: on coumadin -GI: protonix 40mg po daily #Dispo ctm telemetry pending CTA LE's tomorrow morning; prior to hemodialysis Visit type - Emergency Visit Emergency Visit: No - New Patient This patient is new to me today: No - Critical Care Critical Care patient: No ATTENDING PHYSICIAN STATEMENT I saw and evaluated the patient. I reviewed the resident's note and discussed the case with the resident. I agree with the resident's findings and plan as documented. SUBJECTIVE: OBJECTIVE: ASSESSMENT AND PLAN: <Henrry Rivas - Last Filed: 04/26/20 20:34> Physical Exam: SUBJECTIVE: Patient seen and examined OBJECTIVE: Vital Signs Period Temp Pulse Resp BP Sys/Chandra Pulse Ox Last 24 Hr 97.8 F-98.6 F 61-73 12-18 124-142/62-80 96-100 GENERAL: The patient is awake, alert, and fully oriented, in no acute distress. HEAD: Normal with no signs of trauma. EYES: PERRL, extraocular movements intact, sclera anicteric, conjunctiva clear. No ptosis. ENT: Ears normal, nares patent, oropharynx clear without exudates, moist mucous membranes. NECK: Trachea midline, full range of motion, supple. LUNGS: Breath sounds equal, clear to auscultation bilaterally, no wheezes, no crackles, no accessory muscle use. HEART: Regular rate and rhythm, S1, S2 without murmur, rub or gallop. ABDOMEN: Soft, nontender, nondistended, normoactive bowel sounds, no guarding, no rebound, no hepatosplenomegaly, no masses. EXTREMITIES: 2+ pulses, warm, well-perfused, no edema. NEUROLOGICAL: Cranial nerves II through XII grossly intact. Normal speech, gait not observed. PSYCH: Normal mood, normal affect. SKIN: Warm, dry, normal turgor, no rashes or lesions noted Laboratory Results - last 24 hr 04/25/20 04/26/20 04/26/20 22:01 05:40 05:40 WBC 10.9 H RBC 4.12 Hgb 12.0 Hct 38.3 MCV 93.0 MCH 29.1 MCHC 31.3 L RDW 19.2 H Plt Count 170 MPV 9.1 Sodium 136 Potassium 3.8 Chloride 98 Carbon Dioxide 29 Anion Gap 9 BUN 44.8 H Creatinine 3.3 H Est GFR (CKD-EPI)AfAm 20.49 Est GFR (CKD-EPI)NonAf 17.67 POC Glucometer 132 Random Glucose 113 H Calcium 8.1 L Phosphorus 4.4 Magnesium 1.7 L Total Bilirubin 0.7 AST 15 ALT 27 Alkaline Phosphatase 96 Total Protein 6.3 L Albumin 3.4 04/26/20 04/26/20 04/26/20 06:42 11:57 16:36 WBC RBC Hgb Hct MCV MCH MCHC RDW Plt Count MPV Sodium Potassium Chloride Carbon Dioxide Anion Gap BUN Creatinine Est GFR (CKD-EPI)AfAm Est GFR (CKD-EPI)NonAf POC Glucometer 113 116 137 Random Glucose Calcium Phosphorus Magnesium Total Bilirubin AST ALT Alkaline Phosphatase Total Protein Albumin Active Medications Generic Name Dose Route Start Last Admin Trade Name Freq PRN Reason Stop Dose Admin Acetaminophen 650 mg 04/22/20 17:30 04/26/20 16:34 Tylenol - PO 650 mg Q6H PRN Administration Fever Or Pain Collagenase 1 applic 04/22/20 10:00 04/26/20 09:47 Santyl - TP 1 applic DAILY [facility] Administration Protocol Ferrous Sulfate 325 mg 04/21/20 10:00 04/26/20 09:46 Feosol - PO 325 mg DAILY [facility] Administration Folic Acid 1 mg 04/21/20 10:00 04/26/20 09:46 Folic Acid - PO 1 mg DAILY [facility] Administration Ampicillin Sodium/Sulbactam 100 mls @ 200 mls/hr 04/24/20 16:00 04/26/20 16:47 Sodium 3 gm/ Sodium Chloride IVPB 200 mls/hr Q24H [facility] Administration Sodium Chloride 250 mls @ 3,000 mls/hr 04/26/20 12:44 Normal Saline - IV 04/27/20 12:44 PRN PRN Hypotension during Dialysis Insulin Aspart 1 vial 04/21/20 07:00 04/26/20 16:43 Novolog Vial Sliding Scale - SQ Not Given ACHS [facility] Protocol Isosorbide Mononitrate 30 mg 04/22/20 22:00 04/25/20 22:03 Imdur - PO 30 mg HS [facility] Administration Morphine Sulfate 30 mg 04/21/20 14:04 04/26/20 09:45 Ms Contin - PO 30 mg BID [facility] Administration Nystatin 1 applic 04/21/20 14:00 04/26/20 09:47 Mycostatin Cream - TP 1 applic BID [facility] Administration Oxycodone HCl 20 mg 04/23/20 11:34 04/26/20 17:47 Roxicodone - PO 20 mg Q4H PRN Administration PAIN LEVEL 7 - 10 Pantoprazole Sodium 40 mg 04/21/20 10:00 04/26/20 09:46 Protonix - PO 40 mg DAILY [facility] Administration Polyethylene Glycol 17 gm 04/21/20 10:00 04/26/20 09:46 Miralax (For Daily Use) - PO Not Given BID [facility] Prochlorperazine Maleate 5 mg 04/22/20 13:00 04/25/20 23:40 Compazine - PO 5 mg Q6H PRN Administration NAUSEA AND/OR VOMITING Rosuvastatin Calcium 10 mg 04/21/20 22:00 04/25/20 22:03 Crestor - PO 10 mg HS [facility] Administration Warfarin Sodium 4 mg 04/23/20 18:00 04/26/20 17:49 Coumadin - PO Not Given DAILY@1800 [facility] ASSESSMENT/PLAN: ATTENDING PHYSICIAN STATEMENT I saw and evaluated the patient. I reviewed the resident's note and discussed the case with the resident. I agree with the resident's findings and plan as documented. Attending attestation: Patient seen and examined at bedside during my rounds. He endorses he would like to go home. His last dialysis session was 2 days ago. Since the patient has a right first toe ulcer and multiple wounds to bilateral lower extremities with poorly palpable pulses which are dopplerable the patient requires bilateral lower extremity CTA with runoff per vascular surgery. His volume status has significantly improved. On exam he is alert and awake. He is hard of hearing. He has moist mucous membranes. He has bilateral rhonchorous breath sounds on lung exam. He has a regular rate and rhythm on cardiac exam without any murmurs appreciated. Abdomen is soft nontender nondistended. Bilateral lower extremities are warm with a right first digit gangrenous ulcer and left second digit gangrenous ulcer as well. No purulent drainage. This is dry gangrene. For the patient's acute on chronic combined systolic and diastolic congestive heart failure will give another dose of Lasix today per nephrology. Continue dialysis per nephrology. Continue Unasyn for bilateral lower extremity possible cellulitis. The patient will require an AV fistula evaluation as an outpatient. Cultures have demonstrated no growth to date. Continue Coumadin for atrial fibrillation. check INR in AM. The patient is rate controlled. hypokalemia resolved with po potassium repletion. CTA in AM and then dialysis. Rest as per resident's note above.
[2020-04-26] MEDS ORDERED: PT OWN MED DRAWER 7, Y5N ONE ×2 (16:45→16:47)
[2020-04-26] MEDS: AMPICILLIN NA/SULBACTAM NA 3 GM in SODIUM CHLORIDE 100 ML IVPB SCH (16:47)
[2020-04-26] MEDS: WARFARIN NA 2 MG TABLET PO SCH (17:49)
[2020-04-26] MEDS: MELATONIN 5 MG TABLETS PO SCH (21:29)
[2020-04-26] MEDS: ROSUVASTATIN CA 10 MG TABLET (FP) PO SCH (21:30)
[2020-04-26] MEDS: ISOSORBIDE MONONITRATE 30 MG TAB.SR.24H (FP) PO SCH (21:30)
[2020-04-27] MEDS: oxyCODONE HCL 5 MG TABLET PO PRN ×5 (00:21→19:57)
[2020-04-27] MEDS: INSULIN SLIDING SCALE (NOVOLOG) 1 VIAL SQ SCH ×4 (06:27→22:38)
[2020-04-27 06:55] LABS: HEMOGLOBIN 11.3 GM/dL (11.7-16.9); INR 2.25 (0.83-1.09); MCH 29.1 pg (25.7-33.7); MCHC 31.3 g/dl (32.0-35.9); MEAN PLT VOLUME 9.1 fl (7.5-11.1); PLATELET COUNT 172 K/MM3 (134-434); PROTHROMBIN TIME (PATIENT) 26.8 SEC (9.7-13.0); RBC 3.87 M/mm3 (4.00-5.60); RDW 18.1 % (11.9-15.9); WHITE BLOOD COUNT 11.2 K/mm3 (4.0-10.0)
[2020-04-27 07:32] LABS: ALBUMIN 3.3 g/dl (3.4-5.0); BILIRUBIN,TOTAL 0.6 mg/dL (0.2-1); BLOOD UREA NITROGEN 59.7 mg/dL (7-18); CALCIUM 7.9 mg/dL (8.5-10.1); CREATININE 3.8 mg/dL (0.55-1.3)
[2020-04-27] MEDS: morphine SO4 SUSTAINED ACTING 30 MG TABLET.SA PO SCH ×2 (09:40→21:52)
[2020-04-27] MEDS: PANTOPRAZOLE 40 MG TABLET PO SCH (09:41)
[2020-04-27] MEDS: POLYETHYLENE GLYCOL 3350 119 GM BTL PO SCH ×2 (09:41→21:16)
[2020-04-27] MEDS: NYSTATIN 100,000 UNIT/GM TOPICAL CREAM 15 GM TUBE TP SCH ×2 (09:41→21:16)
[2020-04-27] MEDS: ACETAMINOPHEN 325 MG TABLET (FP) PO PRN ×2 (09:41→19:02)
[2020-04-27] MEDS: FERROUS SO4 325 MG TABLET (FP) PO SCH (09:41)
[2020-04-27] MEDS: FOLIC ACID 1 MG TABLET (FP) PO SCH (09:41)
[2020-04-27] MEDS: COLLAGENASE CLOSTRIDIUM HIST. 30 GRAMS TUBE TP SCH (10:00)
[2020-04-27] MEDS ORDERED: oxyCODONE HCL 5 MG TABLET ONE (11:53)
--- NOTE | 2020-04-27 14:16 | PN ---
Teaching Attending Note Name of Resident: Briseyda Archer ATTENDING PHYSICIAN STATEMENT I saw and evaluated the patient. I reviewed the resident's note and discussed the case with the resident. I agree with the resident's findings and plan as documented. SUBJECTIVE: no fever or chills. has pain in feet. No N/V . no diarrhea . has no SOB . wants to go home OBJECTIVE: NAD, awake, alert, cooperative. CV: RRR. no MRG. Lungs: CTAB Abd: soft, NT, ND , Nl BS Ext: 1+ edema on legs and feet. No erythema on legs. small wounds on dorsal R foot ( healing ) , no erythema . . eschar on medial R big toe, and R 3rd toe. and L 2rd toe ( smaller ) . no discharge. DP 1+ bilaterally again today . can't feel PT b/l ASSESSMENT AND PLAN: 70 y/o man with h/o Afib, Diastolic CHF, DM, ICM, with EF of 30-35 %, PPM, 1st degree AV block, CVA, COPD (on home oxygen 4L) and ESRD on hemodialysis (MWF), who presented with SOB few hours after his HD yesterday. 1- Acute on chronic diastolic CHF exacerbation. -Hd today . No lasix 2- N/V.due to clinda. resolved since switching to Unasyn - no more diarrhea 3- Cellulitis in RLE. resolved. today day 7 of Abx,. dc unasyn 4- H/o DM: Not on any meds as out pt . -A1c 7 - cont SSI here . will switch to po after dc 5- h/o HTN: cont imdur 6- H/o A fib: cont coumadin at 4 mg. therapeutic INR 7- Prolonged QTC : - monitor. 8- Chronic pain : cont home meds. 9- Possible PVD. seen by Surgical team. CTA pending . dipso plan depends on CTA findings, and PT evalin . has not walked since admission . Lives home with his
[2020-04-27 14:26] VITALS: BMI 27.0
--- NOTE | 2020-04-27 14:30 | PN ---
Progress Note, Physician History of Present Illness: Pt seen and examined at bedside. He is awake and alert. He went for lower ext cta this morning and is now getting HD. - Current Medication List Current Medications: Active Medications Acetaminophen (Tylenol -) 650 mg PO Q6H PRN PRN Reason: Fever Or Pain Last Admin: 04/27/20 09:41 Dose: 650 mg Documented by: Collagenase (Santyl -) 1 applic TP DAILY [facility]; Protocol Last Admin: 04/27/20 10:00 Dose: 1 applic Documented by: Ferrous Sulfate (Feosol -) 325 mg PO DAILY [facility] Last Admin: 04/27/20 09:41 Dose: 325 mg Documented by: Folic Acid (Folic Acid -) 1 mg PO DAILY [facility] Last Admin: 04/27/20 09:41 Dose: 1 mg Documented by: Sodium Chloride (Normal Saline -) 250 mls @ 3,000 mls/hr IV PRN PRN PRN Reason: Hypotension during Dialysis Stop: 04/27/20 12:44 Insulin Aspart (Novolog Vial Sliding Scale -) 1 vial SQ ACHS [facility]; Protocol Last Admin: 04/27/20 11:22 Dose: 2 units Documented by: Isosorbide Mononitrate (Imdur -) 30 mg PO HS [facility] Last Admin: 04/26/20 21:30 Dose: 30 mg Documented by: Melatonin (Melatonin) 10 mg PO HS [facility] Last Admin: 04/26/20 21:29 Dose: 10 mg Documented by: Morphine Sulfate (Ms Contin -) 30 mg PO BID [facility] Last Admin: 04/27/20 09:40 Dose: 30 mg Documented by: Nystatin (Mycostatin Cream -) 1 applic TP BID [facility] Last Admin: 04/27/20 09:41 Dose: 1 applic Documented by: Oxycodone HCl (Roxicodone -) 20 mg PO Q4H PRN PRN Reason: PAIN LEVEL 7 - 10 Last Admin: 04/27/20 11:54 Dose: 20 mg Documented by: Pantoprazole Sodium (Protonix -) 40 mg PO DAILY [facility] Last Admin: 04/27/20 09:41 Dose: 40 mg Documented by: Polyethylene Glycol (Miralax (For Daily Use) -) 17 gm PO BID [facility] Last Admin: 04/27/20 09:41 Dose: Not Given Documented by: Prochlorperazine Maleate (Compazine -) 5 mg PO Q6H PRN PRN Reason: NAUSEA AND/OR VOMITING Last Admin: 04/25/20 23:40 Dose: 5 mg Documented by: Rosuvastatin Calcium (Crestor -) 10 mg PO HS [facility] Last Admin: 04/26/20 21:30 Dose: 10 mg Documented by: Warfarin Sodium (Coumadin -) 4 mg PO DAILY@1800 [facility] Last Admin: 04/26/20 17:49 Dose: Not Given Documented by: - Objective Vital Signs: Vital Signs Temperature 98.1 F 04/27/20 06:00 Pulse Rate 65 04/27/20 11:35 Respiratory Rate 17 04/27/20 11:35 Blood Pressure 130/62 04/27/20 11:35 O2 Sat by Pulse Oximetry (%) 99 04/27/20 09:00 Constitutional: Yes: Calm Eyes: Yes: Conjunctiva Clear HENT: Yes: Atraumatic Neck: Yes: Supple Cardiovascular: Yes: S1, S2 Respiratory: Yes: CTA Bilaterally Gastrointestinal: Yes: Soft Genitourinary: Yes: WNL Musculoskeletal: Yes: WNL Edema: No Neurological: Yes: Oriented Labs: CBC, BMP 04/27/20 05:40 04/27/20 05:40 INR, PTT INR 2.25 (0.83-1.09) H 04/27/20 05:40 Problem List - Problems (1) ESRD (end stage renal disease) Code(s): N18.6 - END STAGE RENAL DISEASE (2) COPD (chronic obstructive pulmonary disease) Code(s): J44.9 - CHRONIC OBSTRUCTIVE PULMONARY DISEASE, UNSPECIFIED Assessment/Plan Current Medications Generic Name Dose Route Start Last Admin Trade Name Freq PRN Reason Stop Dose Admin Acetaminophen 650 mg 04/22/20 17:30 04/27/20 09:41 Tylenol - PO 650 mg Q6H PRN Administration Fever Or Pain Collagenase 1 applic 04/22/20 10:00 04/27/20 10:00 Santyl - TP 1 applic DAILY [facility] Administration Protocol Ferrous Sulfate 325 mg 04/21/20 10:00 04/27/20 09:41 Feosol - PO 325 mg DAILY [facility] Administration Folic Acid 1 mg 04/21/20 10:00 04/27/20 09:41 Folic Acid - PO 1 mg DAILY [facility] Administration Sodium Chloride 250 mls @ 3,000 mls/hr 04/26/20 12:44 Normal Saline - IV 04/27/20 12:44 PRN PRN Hypotension during Dialysis Insulin Aspart 1 vial 04/21/20 07:00 04/27/20 11:22 Novolog Vial Sliding Scale - SQ 2 units ACHS [facility] Administration Protocol Isosorbide Mononitrate 30 mg 04/22/20 22:00 04/26/20 21:30 Imdur - PO 30 mg HS [facility] Administration Melatonin 10 mg 04/26/20 22:00 04/26/20 21:29 Melatonin PO 10 mg HS [facility] Administration Morphine Sulfate 30 mg 04/21/20 14:04 04/27/20 09:40 Ms Contin - PO 30 mg BID [facility] Administration Nystatin 1 applic 04/21/20 14:00 04/27/20 09:41 Mycostatin Cream - TP 1 applic BID [facility] Administration Oxycodone HCl 20 mg 04/23/20 11:34 04/27/20 11:54 Roxicodone - PO 20 mg Q4H PRN Administration PAIN LEVEL 7 - 10 Pantoprazole Sodium 40 mg 04/21/20 10:00 04/27/20 09:41 Protonix - PO 40 mg DAILY [facility] Administration Polyethylene Glycol 17 gm 04/21/20 10:00 04/27/20 09:41 Miralax (For Daily Use) - PO Not Given BID [facility] Prochlorperazine Maleate 5 mg 04/22/20 13:00 04/25/20 23:40 Compazine - PO 5 mg Q6H PRN Administration NAUSEA AND/OR VOMITING Rosuvastatin Calcium 10 mg 04/21/20 22:00 04/26/20 21:30 Crestor - PO 10 mg HS [facility] Administration Warfarin Sodium 4 mg 04/23/20 18:00 04/26/20 17:49 Coumadin - PO Not Given DAILY@1800 [facility] Impression 1. ESRD 2. shortness of breath 3. copd 4. chf 5. positive anti-histone ab 6. fluid overload 7. cva 8. anemia Plan - HD today - cont lasix on non HD days - follow ct results - pt eager to go home, can be discharged from renal standpoint if no vascular intervention needed - will need avf as outpt - volume status is markedly improved - discussed with medical team - will follow
--- NOTE | 2020-04-27 14:44 | PN ---
Physical Exam: SUBJECTIVE: Patient seen and examined at bedside. No acute events overnight. Pt denies nausea, vomiting, abd pain, diarrhea. States he still has generalized back pain and b/l LE pain. Tolerating PO intake. OBJECTIVE: Vital Signs Period Temp Pulse Resp BP Sys/Chandra Pulse Ox Last 24 Hr 97.8 F-98.1 F 63-76 9-17 118-137/57-81 99-99 GENERAL: AAOx3, in no acute distress. HEENT: NCAT. MMM. No JVD. LUNGS: B/l rhonchi, no accessory muscle use. HEART: Regular rate and rhythm, S1, S2 without murmur, rub or gallop. ABDOMEN: Soft, ntnd, normoactive bowel sounds, no guarding. EXTREMITIES: B/l DP pulses non-palpable. Right hallux gangrenous ulcer ~3x4cm; multiple healing wounds to R dorsal foot. Left 2nd toe gangrenous ulcer. Normal temp to touch. No LE edema. Right 3rd toe eschar, non erythematous, no purulence. SKIN: Midline sternotomy healed scar. R permacath in place c/d/i. Laboratory Results - last 24 hr 04/26/20 04/26/20 04/27/20 16:36 21:43 05:40 WBC 11.2 H RBC 3.87 L Hgb 11.3 L Hct 36.0 MCV 93.0 MCH 29.1 MCHC 31.3 L RDW 18.1 H Plt Count 172 MPV 9.1 PT with INR INR Sodium Potassium Chloride Carbon Dioxide Anion Gap BUN Creatinine Est GFR (CKD-EPI)AfAm Est GFR (CKD-EPI)NonAf POC Glucometer 137 136 Random Glucose Calcium Total Bilirubin AST ALT Alkaline Phosphatase Total Protein Albumin 04/27/20 04/27/20 04/27/20 05:40 05:40 06:06 WBC RBC Hgb Hct MCV MCH MCHC RDW Plt Count MPV PT with INR 26.80 H INR 2.25 H Sodium 137 Potassium 4.0 Chloride 98 Carbon Dioxide 32 Anion Gap 7 L BUN 59.7 H Creatinine 3.8 H Est GFR (CKD-EPI)AfAm 17.27 Est GFR (CKD-EPI)NonAf 14.90 POC Glucometer 97 Random Glucose 94 Calcium 7.9 L Total Bilirubin 0.6 AST 12 L ALT 23 Alkaline Phosphatase 90 Total Protein 6.0 L Albumin 3.3 L 04/27/20 11:11 WBC RBC Hgb Hct MCV MCH MCHC RDW Plt Count MPV PT with INR INR Sodium Potassium Chloride Carbon Dioxide Anion Gap BUN Creatinine Est GFR (CKD-EPI)AfAm Est GFR (CKD-EPI)NonAf POC Glucometer 156 Random Glucose Calcium Total Bilirubin AST ALT Alkaline Phosphatase Total Protein Albumin Active Medications Generic Name Dose Route Start Last Admin Trade Name Freq PRN Reason Stop Dose Admin Acetaminophen 650 mg 04/22/20 17:30 04/27/20 09:41 Tylenol - PO 650 mg Q6H PRN Administration Fever Or Pain Collagenase 1 applic 04/22/20 10:00 04/27/20 10:00 Santyl - TP 1 applic DAILY [facility] Administration Protocol Ferrous Sulfate 325 mg 04/21/20 10:00 04/27/20 09:41 Feosol - PO 325 mg DAILY [facility] Administration Folic Acid 1 mg 04/21/20 10:00 04/27/20 09:41 Folic Acid - PO 1 mg DAILY [facility] Administration Sodium Chloride 250 mls @ 3,000 mls/hr 04/26/20 12:44 Normal Saline - IV 04/27/20 12:44 PRN PRN Hypotension during Dialysis Insulin Aspart 1 vial 04/21/20 07:00 04/27/20 11:22 Novolog Vial Sliding Scale - SQ 2 units ACHS RADHA Administration Protocol Isosorbide Mononitrate 30 mg 04/22/20 22:00 04/26/20 21:30 Imdur - PO 30 mg HS [facility]HA Administration Melatonin 10 mg 04/26/20 22:00 04/26/20 21:29 Melatonin PO 10 mg HS [facility] Administration Morphine Sulfate 30 mg 04/21/20 14:04 04/27/20 09:40 Ms Contin - PO 30 mg BID [facility] Administration Nystatin 1 applic 04/21/20 14:00 04/27/20 09:41 Mycostatin Cream - TP 1 applic BID [facility] Administration Oxycodone HCl 20 mg 04/23/20 11:34 04/27/20 11:54 Roxicodone - PO 20 mg Q4H PRN Administration PAIN LEVEL 7 - 10 Pantoprazole Sodium 40 mg 04/21/20 10:00 04/27/20 09:41 Protonix - PO 40 mg DAILY [facility] Administration Polyethylene Glycol 17 gm 04/21/20 10:00 04/27/20 09:41 Miralax (For Daily Use) - PO Not Given BID [facility] Prochlorperazine Maleate 5 mg 04/22/20 13:00 04/25/20 23:40 Compazine - PO 5 mg Q6H PRN Administration NAUSEA AND/OR VOMITING Rosuvastatin Calcium 10 mg 04/21/20 22:00 04/26/20 21:30 Crestor - PO 10 mg HS RADHA Administration Warfarin Sodium 4 mg 04/23/20 18:00 04/26/20 17:49 Coumadin - PO Not Given DAILY@1800 [facility] ASSESSMENT/PLAN: 70 y.o. M PMH A-fib, HFrEF (EF 30-35%, Global LV Hypokinesis), CAD (S/P CABG), Ischemic Cardiomyopathy s/p PPM, 1st degree AV Block, CVA, COPD (on 4L Home O2), ESRD on HD (Makes minimal urine, on HD MWF) IDDM, presented w/ shortness of breath #Acute on chronic diastolic CHF exacerbation; Stable, clinically euvolemic. -Cont Lasix on non-HD days -cont HD M/W/F -LE U/S negative for DVT- PE unlikely -CXR: no acute disease. cardiomegaly -renal following -Echo 04/21: 25 % EF. LVH. Decr systolic function. Grade II diastolic dysfunction. severe hypokinesis. LA dilation. Mild/ mod pulm HTN -Daily weights, I/Os #RLE wound, LLE wound, possible cellulitis; S/p 7 days total of IV abx (Clinda/Unasyn). Clinically, b/l LE no longer erythematous. -surgery recs appreciated -CTA b/l LE done; results pending. F/u vasc surg recs -Per podiatry, rec santyl daily to b/l foot ulcers. no acute surgical intervention at this time. f/u outpatient wound center -R foot XR negative for fracture or OM -BCx neg -Nystatin for toes -PT ordered #Nausea/Vomiting; Resolved. No more episodes. #Afib; Rate-controlled, HR ~70s. Initial supratherapeutic INR now resolved. INR 2.25 today. Cont home med: Warfarin 4 mg QD #ESRD; cont HD MWF. Scheduled for HD today. -Nephro following #HTN/HLD; Cont home med: Imdur 30mg HS, Crestor 10; holding post HD in setting of hypotension #Chronic back pain; Cont home meds: Morphine ER 30mg BID, Oxycodone 20mg q4h PRN, Tylenol 650 q6h PRN #CAD -Patient previously on ASA/Plavix given stent hx however was d/c'd end of 2018 2/2 GIB (gastric ulcer, erosions, anemia) #FEN -PO hydration -recheck lytes in AM -Renal diet #Prophylaxis DVT: Cont home Coumadin 4 GI: Cont home Protonix 40 Dispo -cont to monitor on tele -d/c pending CTA B/L LE; f/u vasc recs Visit type - Emergency Visit Emergency Visit: Yes ED Registration Date: 04/20/20 Care time: The patient presented to the Emergency Department on the above date and was hospitalized for further evaluation of their emergent condition. - New Patient This patient is new to me today: No - Critical Care Critical Care patient: No ATTENDING PHYSICIAN STATEMENT I saw and evaluated the patient. I reviewed the resident's note and discussed the case with the resident. I agree with the resident's findings and plan as documented. SUBJECTIVE: OBJECTIVE: ASSESSMENT AND PLAN:
[2020-04-27] MEDS: WARFARIN NA 2 MG TABLET PO SCH (17:55)
[2020-04-27] MEDS: ROSUVASTATIN CA 10 MG TABLET (FP) PO SCH (21:15)
[2020-04-27] MEDS: ISOSORBIDE MONONITRATE 30 MG TAB.SR.24H (FP) PO SCH (21:15)
[2020-04-27] MEDS: MELATONIN 5 MG TABLETS PO SCH (21:15)
[2020-04-28] MEDS: oxyCODONE HCL 5 MG TABLET PO PRN ×5 (04:03→15:53)
[2020-04-28 06:12] LABS: HEMATOCRIT 35.9 % (35.4-49); HEMOGLOBIN 11.3 GM/dL (11.7-16.9); MCH 29.3 pg (25.7-33.7); MCHC 31.4 g/dl (32.0-35.9); MEAN CELL VOLUME 93.1 fl (80-96); MEAN PLT VOLUME 9.2 fl (7.5-11.1); PLATELET COUNT 159 K/MM3 (134-434); RBC 3.86 M/mm3 (4.00-5.60); RDW 18.7 % (11.9-15.9); WHITE BLOOD COUNT 10.9 K/mm3 (4.0-10.0)
[2020-04-28 06:53] LABS: BLOOD UREA NITROGEN 39.1 mg/dL (7-18); CALCIUM 8.2 mg/dL (8.5-10.1); CREATININE 2.9 mg/dL (0.55-1.3); MAGNESIUM 1.8 mg/dL (1.8-2.4); PHOSPHOROUS 3.4 mg/dL (2.5-4.9); POTASSIUM 3.9 mmol/L (3.5-5.1)
[2020-04-28] MEDS: INSULIN SLIDING SCALE (NOVOLOG) 1 VIAL SQ SCH ×2 (07:05→10:56)
--- NOTE | 2020-04-28 08:11 | PN ---
Progress Note (short form) - Note Progress Note: VASCULAR SURGERY 70 y/o M PMHx HFrEF (EF 30-35%, Global LV Hypokinesis), CAD (S/P quadruple CABG), Ischemic Cardiomyopathy s/p PPM, 1st degree AVB, CVA, COPD (on 4L Home O2), ESRD on HD (makes urine, on HD MWF) IDDM, a/w SOB found to have acute on chronic chf. Pt with chronic wounds (non-healing) b/l feet 2/2 puppy bites. +IDDM Pt with multiple comorbidities, chronically ill. On HD since November (permanent per medical team). Likely with significant vascular disease (femoral pulses only appreciated via doppler), however high risk due to comorbidities. Patient had CTA with LE runoff (completed yesterday but no official interpretation). Awaiting results. Surgical plan pending those results. Will cont to follow.
--- NOTE | 2020-04-28 09:28 | PN ---
Teaching Attending Note Name of Resident: Briseyda Archer ATTENDING PHYSICIAN STATEMENT I saw and evaluated the patient. I reviewed the resident's note and discussed the case with the resident. I agree with the resident's findings and plan as documented. SUBJECTIVE: Patient is feeling better with no acute distress, no shortness of breath, no chest pain. OBJECTIVE: Vital Signs Temperature 98.0 F 04/28/20 06:00 Pulse Rate 66 04/28/20 06:00 Respiratory Rate 12 04/28/20 06:00 Blood Pressure 125/64 04/28/20 06:00 O2 Sat by Pulse Oximetry (%) 98 04/28/20 09:00 PE:per resident's note (femoral pulses only appreciated via doppler) pt's foot is stable with chronic dry gangrene. right great toe, and left 2nd toe dry gangrene for months. CBCD WBC 10.9 K/mm3 (4.0-10.0) H 04/28/20 05:35 RBC 3.86 M/mm3 (4.00-5.60) L 04/28/20 05:35 Hgb 11.3 GM/dL (11.7-16.9) L 04/28/20 05:35 Hct 35.9 % (35.4-49) 04/28/20 05:35 MCV 93.1 fl (80-96) 04/28/20 05:35 MCHC 31.4 g/dl (32.0-35.9) L 04/28/20 05:35 RDW 18.7 % (11.9-15.9) H 04/28/20 05:35 Plt Count 159 K/MM3 (134-434) 04/28/20 05:35 MPV 9.2 fl (7.5-11.1) 04/28/20 05:35 CMP Sodium 138 mmol/L (136-145) 04/28/20 05:35 Potassium 3.9 mmol/L (3.5-5.1) 04/28/20 05:35 Chloride 100 mmol/L (98-107) 04/28/20 05:35 Carbon Dioxide 32 mmol/L (21-32) 04/28/20 05:35 Anion Gap 7 MMOL/L (8-16) L 04/28/20 05:35 BUN 39.1 mg/dL (7-18) H 04/28/20 05:35 Creatinine 2.9 mg/dL (0.55-1.3) H 04/28/20 05:35 Random Glucose 152 mg/dL (74-106) H 04/28/20 05:35 Calcium 8.2 mg/dL (8.5-10.1) L 04/28/20 05:35 Total Bilirubin 0.6 mg/dL (0.2-1) 04/27/20 05:40 AST 12 U/L (15-37) L 04/27/20 05:40 ALT 23 U/L (13-61) 04/27/20 05:40 Alkaline Phosphatase 90 U/L (45-117) 04/27/20 05:40 Total Protein 6.0 g/dl (6.4-8.2) L 04/27/20 05:40 Albumin 3.3 g/dl (3.4-5.0) L 04/27/20 05:40 CARDIAC ENZYMES Creatine Kinase 70 U/L (26-308) 04/20/20 18:50 Troponin I 0.02 ng/ml (0.00-0.05) 04/21/20 11:30 Current Medications Generic Name Dose Route Start Last Admin Trade Name Freq PRN Reason Stop Dose Admin Acetaminophen 650 mg 04/22/20 17:30 04/27/20 19:02 Tylenol - PO 650 mg Q6H PRN Administration Fever Or Pain Collagenase 1 applic 04/22/20 10:00 04/27/20 10:00 Santyl - TP 1 applic DAILY RADHA Administration Protocol Ferrous Sulfate 325 mg 04/21/20 10:00 04/27/20 09:41 Feosol - PO 325 mg DAILY RADHA Administration Folic Acid 1 mg 04/21/20 10:00 04/27/20 09:41 Folic Acid - PO 1 mg DAILY RADHA Administration Sodium Chloride 250 mls @ 3,000 mls/hr 04/26/20 12:44 Normal Saline - IV 04/27/20 12:44 PRN PRN Hypotension during Dialysis Insulin Aspart 1 vial 04/21/20 07:00 04/28/20 07:05 Novolog Vial Sliding Scale - SQ 2 units ACHS RADHA Administration Protocol Isosorbide Mononitrate 30 mg 04/22/20 22:00 04/27/20 21:15 Imdur - PO 30 mg HS RADHA Administration Melatonin 10 mg 04/26/20 22:00 04/27/20 21:15 Melatonin PO 10 mg HS RADHA Administration Morphine Sulfate 30 mg 04/21/20 14:04 04/27/20 21:52 Ms Contin - PO 30 mg BID RADHA Administration Nystatin 1 applic 04/21/20 14:00 04/27/20 21:16 Mycostatin Cream - TP 1 applic BID RADHA Administration Oxycodone HCl 20 mg 04/23/20 11:34 04/28/20 08:15 Roxicodone - PO 20 mg Q4H PRN Administration PAIN LEVEL 7 - 10 Pantoprazole Sodium 40 mg 04/21/20 10:00 04/27/20 09:41 Protonix - PO 40 mg DAILY RADHA Administration Polyethylene Glycol 17 gm 04/21/20 10:00 04/27/20 21:16 Miralax (For Daily Use) - PO Not Given BID [facility] Prochlorperazine Maleate 5 mg 04/22/20 13:00 04/25/20 23:40 Compazine - PO 5 mg Q6H PRN Administration NAUSEA AND/OR VOMITING Rosuvastatin Calcium 10 mg 04/21/20 22:00 04/27/20 21:15 Crestor - PO 10 mg HS [facility] Administration Warfarin Sodium 4 mg 04/23/20 18:00 04/27/20 17:55 Coumadin - PO 4 mg DAILY@1800 [facility] Administration Home Medications Medication Instructions Recorded Rosuvastatin [Crestor -] 20 mg PO HS 04/15/19 Warfarin Na [Coumadin -] 5 mg PO DAILY@1800 #30 tablet 12/02/19 Ferrous Sulfate 325 mg PO DAILY 04/20/20 Folic Acid 1 mg PO DAILY 04/20/20 Furosemide 80 mg PO DAILY 04/20/20 Isosorbide Mononitrate [Imdur -] 30 mg PO HS 04/20/20 Pantoprazole Sodium 40 mg PO DAILY 04/20/20 Pregabalin [Lyrica] 50 mg PO DAILY 04/20/20 Morphine Sulfate [Morphine Sulfate 30 mg PO BID 04/21/20 ER] oxyCODONE HCL [Roxicodone -] 20 mg PO Q6H PRN 04/21/20 Microbiology 04/23/20 13:20 Blood - Peripheral Venous Blood Culture - Final NO GROWTH AFTER 5 DAYS INCUBATION 04/23/20 13:20 Blood - Peripheral Venous Blood Culture - Final NO GROWTH AFTER 5 DAYS INCUBATION 04/26/20 20:30 Urine - Urine Clean Catch Urine Culture - Final NO GROWTH OBTAINED 04/20/20 21:15 Blood - Peripheral Venous Blood Culture - Final NO GROWTH AFTER 5 DAYS INCUBATION 04/20/20 21:10 Blood - Peripheral Venous Blood Culture - Final NO GROWTH AFTER 5 DAYS INCUBATION ASSESSMENT AND PLAN: This patient is a 70yom with a Pmhx of Afib, Diastolic CHF, DM, ICM, with EF of 30-35 %, PPM, 1st degree AV block, CVA, COPD (on home oxygen 4L) and ESRD on hemodialysis (MWF), who is admitted for having SOB few hours after his HD yesterday. # Acute on chronic diastolic CHF exacerbation. HD today. No lasix. # N/V due to clinda. which resolved post switching to Unasyn #RLE Cellulitis : resolved s/p IV unasyn x 7 days. #H/x of T2DM: A1c 7 , s/p SSI , will dc him on Januvia 50mg po daily since cannot give metformin since has a creatinine if 2.9, diet modification needed. #Hx of HTN: cont imdur # Hx of A fib: cont coumadin at 4 mg. therapeutic INR 2.25 # Prolonged QTC # Chronic pain : cont home meds. # Possible PVD. seen by Surgical team. CTA as an outpatient, discussed with Dr Carson, patient needs cardiac clearance prior to CTA Patient Lives home with his As per vascular , patient can be discharged home and follow up with him in vascular clinic on Mondaymay 04,as an outpatient for further w/u. for angiogram, HBO, and cardiology eval. CT angio: Right leg run off: common femoral bifurcation appears patent. Superficial femoral artery is diseased areas of segmental occlusion suspected. moderate disease is identified of the popliteal artery at the knee level. Trifurcation vessels are heavely calcified. Left Leg run off: common femoral artery is heavily diseased but patent. superficial femoral is heavily calcified. follow with on the for further w/u and evaluation. dc patient home
[2020-04-28] MEDS: morphine SO4 SUSTAINED ACTING 30 MG TABLET.SA PO SCH (09:52)
[2020-04-28] MEDS: PANTOPRAZOLE 40 MG TABLET PO SCH (09:52)
[2020-04-28] MEDS: FOLIC ACID 1 MG TABLET (FP) PO SCH (09:54)
[2020-04-28] MEDS: COLLAGENASE CLOSTRIDIUM HIST. 30 GRAMS TUBE TP SCH (09:54)
[2020-04-28] MEDS: FERROUS SO4 325 MG TABLET (FP) PO SCH (09:55)
[2020-04-28] MEDS: POLYETHYLENE GLYCOL 3350 119 GM BTL PO SCH (09:56)
[2020-04-28] MEDS: NYSTATIN 100,000 UNIT/GM TOPICAL CREAM 15 GM TUBE TP SCH (09:56)
--- NOTE | 2020-04-28 13:23 | PN ---
Progress Note (short form) - Note Progress Note: Vascular surgery CTA reviewed. Pt has right great toe, and left 2nd toe dry gangrene for months. Pt has multiple co-morbidities with cardiac history. CTA shows calcified disease bilaterally. Very hard to see on CTA. At this point , pt's foot is stable with chronic dry gangrene. Pt is on warfarin, with INR of 2.25. Recc PT for ambulation. Rec outpt followup in vascular clinic on Mondaymay 04. I can then get the pt set up for angiogram, HBO, and cardilogy eval. Pt is high risk. Isiah Carson DO
[2020-04-28 14:29] VITALS: BP 132/83; PULSE 72; TEMP 97.6
[2020-04-28] MEDS: ACETAMINOPHEN 325 MG TABLET (FP) PO PRN (14:50)
--- NOTE | 2020-04-28 15:05 | PN ---
Progress Note, Physician History of Present Illness: Pt seen and examined at bedside. He is awake and alert. He denies shortness of breath. He is eager to go home. - Current Medication List Current Medications: Active Medications Acetaminophen (Tylenol -) 650 mg PO Q6H PRN PRN Reason: Fever Or Pain Last Admin: 04/28/20 14:50 Dose: 650 mg Documented by: Collagenase (Santyl -) 1 applic TP DAILY [facility]; Protocol Last Admin: 04/28/20 09:54 Dose: 1 applic Documented by: Ferrous Sulfate (Feosol -) 325 mg PO DAILY [facility] Last Admin: 04/28/20 09:55 Dose: 325 mg Documented by: Folic Acid (Folic Acid -) 1 mg PO DAILY [facility] Last Admin: 04/28/20 09:54 Dose: 1 mg Documented by: Insulin Aspart (Novolog Vial Sliding Scale -) 1 vial SQ ACHS [facility]; Protocol Last Admin: 04/28/20 10:56 Dose: 2 units Documented by: Isosorbide Mononitrate (Imdur -) 30 mg PO [facility] Last Admin: 04/27/20 21:15 Dose: 30 mg Documented by: Melatonin (Melatonin) 10 mg PO HS [facility] Last Admin: 04/27/20 21:15 Dose: 10 mg Documented by: Morphine Sulfate (Ms Contin -) 30 mg PO BID [facility] Last Admin: 04/28/20 09:52 Dose: 30 mg Documented by: Nystatin (Mycostatin Cream -) 1 applic TP BID [facility] Last Admin: 04/28/20 09:56 Dose: Not Given Documented by: Oxycodone HCl (Roxicodone -) 20 mg PO Q4H PRN PRN Reason: PAIN LEVEL 7 - 10 Last Admin: 04/28/20 11:53 Dose: 20 mg Documented by: Pantoprazole Sodium (Protonix -) 40 mg PO DAILY [facility] Last Admin: 04/28/20 09:52 Dose: 40 mg Documented by: Polyethylene Glycol (Miralax (For Daily Use) -) 17 gm PO BID [facility] Last Admin: 04/28/20 09:56 Dose: Not Given Documented by: Prochlorperazine Maleate (Compazine -) 5 mg PO Q6H PRN PRN Reason: NAUSEA AND/OR VOMITING Last Admin: 04/25/20 23:40 Dose: 5 mg Documented by: Rosuvastatin Calcium (Crestor -) 10 mg PO HS [facility] Last Admin: 04/27/20 21:15 Dose: 10 mg Documented by: Warfarin Sodium (Coumadin -) 4 mg PO DAILY@1800 [facility] Last Admin: 04/27/20 17:55 Dose: 4 mg Documented by: - Objective Vital Signs: Vital Signs Temperature 97.6 F 04/28/20 14:00 Pulse Rate 72 04/28/20 14:00 Respiratory Rate 17 04/28/20 14:00 Blood Pressure 132/83 04/28/20 14:00 O2 Sat by Pulse Oximetry (%) 98 04/28/20 09:00 Constitutional: Yes: Calm Eyes: Yes: Conjunctiva Clear HENT: Yes: Atraumatic Neck: Yes: Supple Cardiovascular: Yes: S1, S2 Respiratory: Yes: CTA Bilaterally Gastrointestinal: Yes: Soft Genitourinary: Yes: WNL Musculoskeletal: Yes: WNL Edema: No Neurological: Yes: Oriented Psychiatric: Yes: Oriented Labs: CBC, BMP 04/28/20 05:35 04/28/20 05:35 INR, PTT INR 2.25 (0.83-1.09) H 04/27/20 05:40 Problem List - Problems (1) ESRD (end stage renal disease) Code(s): N18.6 - END STAGE RENAL DISEASE (2) COPD (chronic obstructive pulmonary disease) Code(s): J44.9 - CHRONIC OBSTRUCTIVE PULMONARY DISEASE, UNSPECIFIED Assessment/Plan Current Medications Generic Name Dose Route Start Last Admin Trade Name Freq PRN Reason Stop Dose Admin Acetaminophen 650 mg 04/22/20 17:30 04/28/20 14:50 Tylenol - PO 650 mg Q6H PRN Administration Fever Or Pain Collagenase 1 applic 04/22/20 10:00 04/28/20 09:54 Santyl - TP 1 applic DAILY [facility] Administration Protocol Ferrous Sulfate 325 mg 04/21/20 10:00 04/28/20 09:55 Feosol - PO 325 mg DAILY [facility] Administration Folic Acid 1 mg 04/21/20 10:00 04/28/20 09:54 Folic Acid - PO 1 mg DAILY RAD[facility] Administration Insulin Aspart 1 vial 04/21/20 07:00 04/28/20 10:56 Novolog Vial Sliding Scale - SQ 2 units ACHS [facility] Administration Protocol Isosorbide Mononitrate 30 mg 04/22/20 22:00 04/27/20 21:15 Imdur - PO 30 mg HS [facility] Administration Melatonin 10 mg 04/26/20 22:00 04/27/20 21:15 Melatonin PO 10 mg HS [facility] Administration Morphine Sulfate 30 mg 04/21/20 14:04 04/28/20 09:52 Ms Contin - PO 30 mg BID [facility] Administration Nystatin 1 applic 04/21/20 14:00 04/28/20 09:56 Mycostatin Cream - TP Not Given BID [facility] Oxycodone HCl 20 mg 04/23/20 11:34 04/28/20 11:53 Roxicodone - PO 20 mg Q4H PRN Administration PAIN LEVEL 7 - 10 Pantoprazole Sodium 40 mg 04/21/20 10:00 04/28/20 09:52 Protonix - PO 40 mg DAILY [facility] Administration Polyethylene Glycol 17 gm 04/21/20 10:00 04/28/20 09:56 Miralax (For Daily Use) - PO Not Given BID [facility] Prochlorperazine Maleate 5 mg 04/22/20 13:00 04/25/20 23:40 Compazine - PO 5 mg Q6H PRN Administration NAUSEA AND/OR VOMITING Rosuvastatin Calcium 10 mg 04/21/20 22:00 04/27/20 21:15 Crestor - PO 10 mg HS [facility] Administration Warfarin Sodium 4 mg 04/23/20 18:00 04/27/20 17:55 Coumadin - PO 4 mg DAILY@1800 [facility] Administration Impression 1. ESRD 2. shortness of breath 3. copd 4. chf 5. positive anti-histone ab 6. fluid overload 7. cva 8. anemia Plan - next HD tomorrow as outpt - vascular input appreciated, he will follow as outpt - he has HD set up as outpt - lasix on non HD days - discussed with medical team - volume status is markedly improved
--- NOTE | 2020-04-28 15:09 | DS ---
Physical Exam: SUBJECTIVE: Patient seen and examined at bedside. No acute events overnight. OBJECTIVE: Vital Signs Period Temp Pulse Resp BP Sys/Chandra Pulse Ox Last 24 Hr 97.6 F-98.3 F 63-85 12-19 116-144/59-86 98-99 PHYSICAL EXAM GENERAL: AAOx3, in no acute distress. HEENT: NCAT. MMM. No JVD. LUNGS: B/l rhonchi, no accessory muscle use. HEART: Regular rate and rhythm, S1, S2 without murmur, rub or gallop. ABDOMEN: Soft, ntnd, normoactive bowel sounds, no guarding. EXTREMITIES: B/l DP pulses non-palpable. Right hallux gangrenous ulcer ~3x4cm; multiple healing wounds to R dorsal foot. Left 2nd toe gangrenous ulcer. Normal temp to touch. No LE edema. Right 3rd toe eschar, non erythematous, no purulence. SKIN: Midline sternotomy healed scar. R permacath in place c/d/i. LABS Laboratory Results - last 24 hr 04/27/20 04/27/20 04/28/20 16:05 22:05 05:35 WBC 10.9 H RBC 3.86 L Hgb 11.3 L Hct 35.9 MCV 93.1 MCH 29.3 MCHC 31.4 L RDW 18.7 H Plt Count 159 MPV 9.2 Sodium Potassium Chloride Carbon Dioxide Anion Gap BUN Creatinine Est GFR (CKD-EPI)AfAm Est GFR (CKD-EPI)NonAf POC Glucometer 135 125 Random Glucose Calcium Phosphorus Magnesium 04/28/20 04/28/20 05:35 10:53 WBC RBC Hgb Hct MCV MCH MCHC RDW Plt Count MPV Sodium 138 Potassium 3.9 Chloride 100 Carbon Dioxide 32 Anion Gap 7 L BUN 39.1 H Creatinine 2.9 H Est GFR (CKD-EPI)AfAm 23.95 Est GFR (CKD-EPI)NonAf 20.66 POC Glucometer 161 Random Glucose 152 H Calcium 8.2 L Phosphorus 3.4 Magnesium 1.8 HOSPITAL COURSE: Date of Admission:04/20/20 70 y.o. M PMH A-fib, HFrEF (EF 30-35%, Global LV Hypokinesis), CAD (S/P CABG), Ischemic Cardiomyopathy s/p PPM, 1st degree AV Block, CVA, COPD (on 4L Home O2), ESRD on HD (Makes minimal urine, on HD MWF) IDDM, presented w/ shortness of breath admitted for acute CHF exacerbation. CXR showed pulmonary vascular congestion. Echo showed 25 % EF, LVH, decr systolic function, grade II diastolic dysfunction, severe hypokinesis, LA dilation, mild/ mod pulm HTN. Pt was given IV Lasix and continued his normal dialysis schedule. Per nephro recommendation, he was advised to continue taking PO Lasix on his non-HD days. Pt was also found to have non-healing necrotic wound ulcers on his R hallux, R third toe and L 2nd toe. Blood and urine cultures were negative. He was seen by podiatry with no acute need for surgical intervention and to apply santyl daily to his wounds. His hospital stay was complicated by b/l LE cellulitis after which he completed 7 days total of IV abx (Clindamycin, then Unasyn). He received A CTA b/l LE was done that showed significant calcified disease bilaterally. He was evaluated by the vascular surgeon with recommendation for outpatient follow up at the vascular clinic on Monday, May 04 as well as HBOT and angiogram. During his hospital stay, his symptoms improved and he was advised to follow up with his PCP, nephro, vasc surgery, podiatry, and cardio for close outpatient workup. INSTRUCTIONS: Please apply Santyl daily to foot wound ulcers on the R first toe, R third toe, and L second toe. Please follow up at the [facility] next week with Dr. Velez and Dr. Carson. Date of Discharge: 04/28/20 Minutes to complete discharge: 40 Discharge Summary Problems reviewed: Yes Reason For Visit: ACUTE EXACERBATION OF C O P D Current Active Problems COPD (chronic obstructive pulmonary disease) (Acute) ESRD (end stage renal disease) (Acute) Condition: Improved - Instructions Diet, Activity, Other Instructions: You were seen in the hospital for complaints of shortness of breath found to have an acute CHF (congestive heart failure) exacerbation. You were treated with IV diuretics and hemodialysis while you were here. Additionally, you were found to have cellulitis of both your legs. You were given IV antibiotics to help treat this infection and your symptoms improved. The global security architect evaluated your foot wound ulcers with no need for surgical intervention. You were additionally seen by the vascular surgeon and had a CT scan of your legs done to check the patency of your arteries. Medications We have made the following changes to your medication regimen: Please take Furosemide 40 mg once a day by mouth on your NON-DIALYSIS days (Monday, Monday, , Monday) Please apply Santyl to your toe wound on a daily basis. You may continue taking the rest of your home medications as prescribed. Follow Up Please follow up with your primary care physician, Dr. Vin Isbell within 1 week. Please follow up with your sanitation worker, Dr. Cobian within 1 week. You will eventually need a fistula to be placed in your arm in order to continue to receive dialysis. Please follow up with your global security architect, Dr. Velez on Monday, May 05, 2020. Please follow up with your vascular surgeon, Dr. Carson within on Monday, May 04, 2020 at [facility]. You will need routine evaluation of your foot wounds. You will need an angiogram done as an outpatient as well as hyperbaric oxygen therapy for wound healing. Please follow up with your auto damage appraiser within 1 week since you need to have a cardiac clearance for vascular procedure. Recommendations Please continue physical therapy to help you ambulate. If you experience worsening lower extremity pain, foul smelling odor from your foot wounds, persistent fever, chills, chest pain, shortness of breath, or other associated symptoms, please proceed to your nearest emergency room immediately. Referrals: Angel Velez MD [Staff Physician] - 05/05/20 9:00 am Mulugeta Orozco MD [Staff Physician] - 1 Week Isiah Carson DO [Staff Physician] - 05/04/20 9:00 am Ramos Cobian MD [Staff Physician] - 1 Week Vin Isbell MD [Primary Care Provider] - 1 Week Disposition: HOME - Home Medications Comprehensive Discharge Medication List: Ambulatory Orders Rosuvastatin [Crestor -] 20 mg PO HS 04/15/19 Warfarin Na [Coumadin -] 5 mg PO DAILY@1800 #30 tablet 12/02/19 Ferrous Sulfate 325 mg PO DAILY 04/20/20 Folic Acid 1 mg PO DAILY 04/20/20 Furosemide 80 mg PO DAILY 04/20/20 Isosorbide Mononitrate [Imdur -] 30 mg PO HS 04/20/20 Pantoprazole Sodium 40 mg PO DAILY 04/20/20 Pregabalin [Lyrica] 50 mg PO DAILY 04/20/20 Morphine Sulfate [Morphine Sulfate ER] 30 mg PO BID 04/21/20 oxyCODONE HCL [Roxicodone -] 20 mg PO Q6H PRN 04/21/20 This patient is new to me today: No Emergency Visit: Yes ED Registration Date: 04/20/20 Care time: The patient presented to the Emergency Department on the above date and was hospitalized for further evaluation of their emergent condition. Critical Care patient: No - Discharge Referral Referred to [facility] Med P.C[facility] Yes Physician Referral: Isiah Carson DO ([facility]) ATTENDING PHYSICIAN STATEMENT I saw and evaluated the patient. I reviewed the resident's note and discussed the case with the resident. I agree with the resident's findings and plan as documented. SUBJECTIVE: OBJECTIVE: ASSESSMENT AND PLAN:
--- NOTE | 2020-04-28 16:33 | PN ---
Progress Note (short form) - Note Progress Note: Podiatry F/U: Seen/evaluated at bedside NAD. Pain persistent to bilateral feet. Denies Fever/chills. Afebrile. Anxious to return home. CTA completed. ZION: Pedal pulses nonpalpable, TG wnl, CFT about 5 seconds to all digits. There is dry gangrenous changes to the dorsal aspect of the IPJ of the right hallux. There is no probing to bone, no purulence, no fluctuance, no streaking cellulitis, no signs of acute infection. There is dry gangrenous changes to the dorsal PIPJ of the left second digit, no probing to bone, no purulence, no fluctuance, no streaking cellulitis, no signs of infection. Imp: 70 year old diabetic PVD male with bilateral digital gangrenous ulcers 1. Abx per ID 2. Continue local care 3. Discussed case with Dr. Carson. Will follow patient closely in wound healing center. No acute podiatric intervention required. Can f/u next Monday as patient is getting discharged today. Nadege Velez DPM
== END 2020-04-28 16:45 | disposition home or self-care (01) | DRG 291 ==
LOC: JER 17:58 → JERBED 21:44 → JICU 04-21 00:30
PROVIDERS: ADMIT Internal Medicine; ATTEND Internal Medicine
PROC: 5A1D70Z Performance of Urinary Filtration, Intermittent, Less than 6 Hours Per Day (ICD-10-PCS; principal; 2020-04-21)
DX: I13.2 Hypertensive heart and chronic kidney disease with heart failure and with stage 5 chronic kidney disease, or end stage renal disease (principal); N18.6 End stage renal disease; I50.23 Acute on chronic systolic (congestive) heart failure; L03.116 Cellulitis of left lower limb; L03.115 Cellulitis of right lower limb; E11.52 Type 2 diabetes mellitus with diabetic peripheral angiopathy with gangrene; I25.10 Atherosclerotic heart disease of native coronary artery without angina pectoris; Z95.1 Presence of aortocoronary bypass graft; I25.5 Ischemic cardiomyopathy; E11.22 Type 2 diabetes mellitus with diabetic chronic kidney disease; Z99.81 Dependence on supplemental oxygen; Z95.0 Presence of cardiac pacemaker; Z79.84 Long term (current) use of oral hypoglycemic drugs; I48.91 Unspecified atrial fibrillation; Z79.01 Long term (current) use of anticoagulants; E11.621 Type 2 diabetes mellitus with foot ulcer; Z99.2 Dependence on renal dialysis; E11.65 Type 2 diabetes mellitus with hyperglycemia; Z66 Do not resuscitate; E87.6 Hypokalemia; Z86.73 Personal history of transient ischemic attack (TIA), and cerebral infarction without residual deficits; M54.9 Dorsalgia, unspecified; D64.9 Anemia, unspecified; R94.31 Abnormal electrocardiogram [ECG] [EKG]; L97.529 Non-pressure chronic ulcer of other part of left foot with unspecified severity; I27.20 Pulmonary hypertension, unspecified; R11.2 Nausea with vomiting, unspecified
CPT/HCPCS: 36415; 71045-TC-FY; 73630-TC-RT-FY; 74018-TC-FY; 75635-TC; 80048; 80053; 81003; 82550; 82803; 82962; 83036; 83735; 83880; 84100; 84484; 85025; 85027; 85610; 85651; 86140; 86803; 87040; 87086; 87340; 93005; 93010; 93306-TC; 93970-TC; 94660; 97116-GP; 97161-GP; 99285-25; P9047; Q9967; U0003

== ENCOUNTER 2020-04-30 11:26 | Inpatient (IN) | payer OTHER ==
--- NOTE | 2020-04-30 11:34 | PDOC ---
History of Present Illness - General Chief Complaint: Bone Injury Stated Complaint: Injury Time Seen by Provider: 04/30/20 11:33 History Source: Patient Exam Limitations: No Limitations - History of Present Illness Initial Comments: 04/30/20 11:35 70 y.o. M PMH A-fib on coumadin, HFrEF (EF 30-35%, Global LV Hypokinesis), CAD (S/P CABG), Ischemic Cardiomyopathy s/p PPM, 1st degree AV Block, CVA, COPD (on 4L Home O2), ESRD on HD (Makes minimal urine, on HD MWF) IDDM, presented w L eyebrow abrasion, L arm and hip pain s/p fall. 1hr ago, pt lost balance and fell on L side. Unable to ambulate after fall or lift L arm d/t pain. Was admitted 04/20 -04/28 for CHF exacerbation, mitra foot ulcers, BLE cellulitis. Denies LOC, vision changes, headache, chest pain, SOB, ABD pain, neck pain. Past History - Medical History Allergies/Adverse Reactions: Allergies Allergy/AdvReac Type Severity Reaction Status Date / Time No Known Allergies Allergy Verified 04/07/20 10:05 Home Medications: Ambulatory Orders Rosuvastatin [Crestor -] 20 mg PO HS 04/15/19 Warfarin Na [Coumadin -] 5 mg PO DAILY@1800 #30 tablet 12/02/19 Ferrous Sulfate 325 mg PO DAILY 04/20/20 Folic Acid 1 mg PO DAILY 04/20/20 Furosemide 80 mg PO DAILY 04/20/20 Isosorbide Mononitrate [Imdur -] 30 mg PO HS 04/20/20 Pantoprazole Sodium 40 mg PO DAILY 04/20/20 Pregabalin [Lyrica] 50 mg PO DAILY 04/20/20 Morphine Sulfate [Morphine Sulfate ER] 30 mg PO BID 04/21/20 oxyCODONE HCL [Roxicodone -] 20 mg PO Q6H PRN 04/21/20 Sitagliptin Phosphate [Januvia] 50 mg PO DAILY #30 tablet 04/28/20 Anemia: Yes Asthma: No Cancer: No Cardiac Disorders: Yes (9 stents, RI, CAD, cardiomyopathy, atrial fib) CVA: Yes COPD: Yes CHF: Yes Dementia: No Diabetes: Yes GI Disorders: Yes (colitis, GERD) Disorders: Yes HTN: Yes Hypercholesterolemia: Yes Kidney Stones: Yes Liver Disease: No Seizures: No Thyroid Disease: No - Surgical History Abdominal Surgery: No Appendectomy: No Cardiac Surgery: Yes (stents x 9, CABG X4; PPM) Cholecystectomy: No Lung Surgery: No Neurologic Surgery: No Orthopedic Surgery: Yes (LEFT HIP) - Immunization History Immunization Up to Date: No - Psycho-Social/Smoking History Smoking Status: No Smoking History: Former smoker Have you smoked in the past 12 months: No Number of Cigarettes Smoked Daily: 30 If you are a former smoker, when did you quit?: 3 years Cigars Per Day: 0 'Breaking Loose' booklet given: 01/12/17 *Physical Exam - Physical Exam HEENT: positive: Other (L eyebrow avulsion) ED Treatment Course - LABORATORY CBC & Chemistry Diagram: 04/30/20 12:05 04/30/20 12:05 Medical Decision Making - Medical Decision Making 04/30/20 12:48 Head/c-spine CT CXR pelvis XR L humerus/forearm/elbow/wrist/hand XR EKG - wide QRS complex w frequent Av dual paced complexes and PVCs, LAD, RBBB, bigeminy? not paced? similar to 04/21 --- 70 y.o. M PMH A-fib on coumadin, HFrEF (EF 30-35%, Global LV Hypokinesis), CAD (S/P CABG), Ischemic Cardiomyopathy s/p PPM, 1st degree AV Block, CVA, COPD (on 4L Home O2), ESRD on HD (Makes minimal urine, on HD MWF) IDDM, presented w L eyebrow abrasion, L arm and hip pain s/p fall. Slightly displaced/comminuted L humeral neck fx. No pelvic fx, Stable R parotid nodule w califications. No bleed/infarct. Neurovascular intact. EKG similar to previous one Given tylenol, 8 morphine, tdap Dr Cobian renal made aware of pt's presence, will evaluate Consulted ortho Aguilar - place in sling, get shoulder XR, CT Admit for closed L humeral fx, BLE weakness, arrhythmia Discharge - Discharge Information Problems reviewed: Yes Clinical Impression/Diagnosis: Weakness Head trauma Qualifiers: Encounter type: initial encounter Qualified Code(s): S09.90XA - Unspecified injury of head, initial encounter Humerus fracture Qualifiers: Encounter type: initial encounter Humerus Location: surgical neck Fracture type: closed Fracture morphology: unspecified fracture morphology Fracture alignment: displaced Laterality: left Qualified Code(s): S42.212A - Unspecified displaced fracture of surgical neck of left humerus, initial encounter for closed fracture Condition: Good - Follow up/Referral Referrals: Vin Isbell MD [Primary Care Provider] - - Patient Discharge Instructions - Post Discharge Activity
[2020-04-30] MEDS ORDERED: morphine CARPU-JECT 4 MG/1 ML DISP.SYRIN IVPUSH ONE ×4 (11:48→16:56)
[2020-04-30] MEDS ORDERED: ACETAMINOPHEN 1000 MG/100 ML VIAL (NON FORMULARY) IVPB ONE (11:56)
[2020-04-30] MEDS ORDERED: ACETAMINOPHEN INJECTION 100 ML IVPB ONE (12:06)
[2020-04-30] MEDS ORDERED: morphine SULFATE 4 MG/ML VIAL ONE (12:06)
[2020-04-30 12:21] LABS: BASO % 0.9 % (0-2.0); EOS % 1.8 % (0-4.5); HEMATOCRIT 35.3 % (35.4-49); HEMOGLOBIN 10.9 GM/dL (11.7-16.9); LYMPH % 6.6 % (8-40); MCH 29.2 pg (25.7-33.7); MCHC 30.9 g/dl (32.0-35.9); MEAN CELL VOLUME 94.7 fl (80-96); MEAN PLT VOLUME 9.1 fl (7.5-11.1); MONO % 7.5 % (3.8-10.2); NEUT % 83.2 % (42.8-82.8); PLATELET COUNT 151 K/MM3 (134-434); RBC 3.73 M/mm3 (4.00-5.60); RDW 18.9 % (11.9-15.9); WHITE BLOOD COUNT 11.6 K/mm3 (4.0-10.0)
[2020-04-30 12:31] LABS: INR 1.04 (0.83-1.09); PROTHROMBIN TIME (PATIENT) 12.3 SEC (9.7-13.0)
[2020-04-30 12:34] LABS: ACTIVATED PTT 28.7 SECONDS (25.2-36.5)
[2020-04-30 12:47] LABS: ALBUMIN 3.5 g/dl (3.4-5.0); BILIRUBIN,TOTAL 0.4 mg/dL (0.2-1); BLOOD UREA NITROGEN 49.3 mg/dL (7-18); CALCIUM 8.6 mg/dL (8.5-10.1); CREATININE 4.1 mg/dL (0.55-1.3); POTASSIUM 3.8 mmol/L (3.5-5.1); TOT PROT 6.4 g/dl (6.4-8.2)
--- NOTE | 2020-04-30 14:17 | PDOC ---
Documentation entered by Sorin Cohen SCRIBE, acting as scribe for Madie Gonzalez MD. Madie Gonzalez MD: This documentation has been prepared by the Eli jones Nirvannie, SCRIBE, under my direction and personally reviewed by me in its entirety. I confirm that the documentation accurately reflects all work, treatment, procedures, and medical decision making performed by me. Attending Attestation - Resident Resident Name: TarshaJuan - ED Attending Attestation I have performed the following: I have examined & evaluated the patient, The case was reviewed & discussed with the resident, I agree w/resident's findings & plan, Exceptions are as noted - HPI HPI: 04/30/20 12:04 The patient is a 70 year old male with a significant past medical history of Afib, HFrEF (Global LV Hypokinesis), CAD (s/p CABG 02/2019), Ischemic Cardiomyopathy (s/p PPM), 1st degree AV Block, CVA, COPD (on 4L Home O2), ESRD (minimal urine, on HD MWF), IDDM, and nonhealing wounds who presents to the ED s/p fall with left head, arm, and hip pain. As per patient, he lossed balance subsequently falling. Allergies: NKDA Primary Care Physician: Dr. Isbell - Physicial Exam PE: 04/30/20 14:12 awake alert let eyebrow with contusion, small abrasion. eomi. no bony step off. lungs clear bilat heart rrr no mr abd soft nt nd ext left upper ext ttp. deformity noted. elbow decreased rom secondary to pain. wrist from. 2+rad/ ulnar pulses. n/v intact. nuero alert oriented x 3. skin bilat foot wound right great toe with quarter sized dry, gangrenous wound. no surrounding erythema. left foot second toe with healing wound, pink base no erythema. - Medical Decision Making 04/30/20 14:08 70 yo male h/o copd chf cardiomyopathy esrd ( m/w/f last dialysis yesterday ) chronic foot wounds, recently admitted for chf, here today s/p fall. pt states he lost his balance. did hit his head during fall. left eyebrow. now c/;o upper extremity pain and hip pain. wasn't able to ambulate after his fall. no n/v no focal weakness. janina loc prior to fall. no cp no new sob. 04/30/20 14:17 plan r/o ich head trauma. ct head . c spine. cxr r/o pna or fx. xray humerus, elbow and wrist s/p fall, pelvicc and left hip xray. 04/30/20 14:[address] negative for acute injury. right parotid nodule recommend ENT followup. c spine degenerative changes no acute fracture. xray humerus with prox hum. fx. elbow wrist and forearm negative. pt will require admission due to fact can't walk Discharge - Discharge Information Problems reviewed: Yes Clinical Impression/Diagnosis: Head trauma, Humerus fracture, Weakness - Follow up/Referral Referrals: Vin Isbell MD [Primary Care Provider] - - Patient Discharge Instructions - Post Discharge Activity
[2020-04-30] MEDS ORDERED: DIPHTH,PERTUSS(ACELL),TET VAC 0.5 ML VIAL IM ONE (14:54)
[2020-04-30] MEDS ORDERED: MORPHINE SULFATE 2 MG/ML VIAL ONE ×2 (14:56→17:30)
[2020-04-30 15:02] LABS: ANISOCYTOSIS 1+; MACROCYTOSIS 0; OVALOCYTE 1+; PLATELET ESTIMATE DECREASED; TOXIC GRANULATION 1+
[2020-04-30] MEDS ORDERED: DIPHTH,PERTUSS(ACELL),TET 0.5 ML DISP.SYRIN IM ONE ×2 (15:09→15:10)
[2020-04-30] MEDS ORDERED: DOCUSATE SODIUM 100 MG CAPSULE (FP) PO PRN (17:52)
--- NOTE | 2020-04-30 18:43 | PN ---
Teaching Attending Note Name of Resident: Emre Treviño ATTENDING PHYSICIAN STATEMENT I saw and evaluated the patient. I reviewed the resident's note and discussed the case with the resident. I agree with the resident's findings and plan as documented. SUBJECTIVE:Fall 70 y.o. M PMH A-fib on coumadin, HFrEF (EF 30-35%, Global LV Hypokinesis), CAD (S/P CABG), Ischemic Cardiomyopathy s/p PPM, 1st degree AV Block, CVA, COPD (on 4L Home O2), ESRD on HD (Makes minimal urine, on HD MWF) IDDM, presented w L eyebrow abrasion, L arm and hip pain s/p fall. 1hr ago, pt lost balance and fell on L side. Unable to ambulate after fall or lift L arm d/t pain. Was admitted 04/20 -04/28 for CHF exacerbation, mitra foot ulcers, BLE cellulitis. Denies LOC, vision changes, headache, chest pain, SOB, ABD pain, neck pain. OBJECTIVE: Vital Signs Period Temp Pulse Resp BP Sys/Chandra Pulse Ox Last 24 Hr 98.4 F-98.6 F 66-76 19-19 98-124/68-106 97-99 Patient is in pain HEENT normal Neck supple no JVD Lungs clear no wheezing Abdomen nontender no organomegaly bowel sounds normal Extremities no edema no cyanosis normal pulses Neurologically he is alert awake oriented, nonfocal Skin Bruise on the left shoulder Left eyebrow contusion small abrasion He is a painful range of motion left hip Radiology results pt head ct negative for acute injury. right parotid nodule recommend ENT followup. c spine degenerative changes no acute fracture. xray humerus with prox hum. fx. elbow wrist and forearm negative. ASSESSMENT AND PLAN: 70 yo male h/o copd chf cardiomyopathy esrd ( m/w/f last dialysis yesterday ) chronic foot wounds, recently admitted for chf, here today s/p fall. Admit will get a CAT scan of the left hip rule out fracture even though x-rays are normal Orthopedic consult restart his home medications pain medications
--- NOTE | 2020-04-30 18:48 | CONSULT ---
Consult Consult Specialty:: Nephrology Reason for Consultation:: ESRD - History of Present Illness Chief Complaint: s/p fall History of Present Illness: Pt is a 70 year old male with pmhx of a-fib, esrd, chf, cad, pvd, cva, copd, dm who presented after a fall. He was discharged a few days ago. He has a laceration on his left arm from his screen door from yesterday. He says he was walking and tripped and lost his balance in his kitchen. He fell on his left side and has left arm and hip pain. I was called by his earlier today. He last went to dialysis yesterday. 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 No: Asthma, Pulmonary Embolus, Pulmonary Fibrosis Gastrointestinal: Yes: GERD, Other (Recent GIB) Renal/: Yes: Renal Failure, Renal Inusuff, Other Infectious Disease: Yes: MRSA Psych: Yes: Addictions Musculoskeletal: Yes: Other, Other Endocrine: Yes: Diabetes Mellitus - Past Surgical History Past Surgical History: Yes: CABG (4v), Permanent Pacemaker, Stent (PCIX5) - Alcohol/Substance Use Hx Alcohol Use: No History of Substance Use: reports: None - Smoking History Smoking history: Former smoker Have you smoked in the past 12 months: No Aproximately how many cigarettes per day: 30 If you are a former smoker, when did you quit?: 3 years - Social History Usual Living Arrangement: With Spouse ADL: Family Assistance History of Recent Travel: No Home Medications - Allergies Allergies/Adverse Reactions: Allergies Allergy/AdvReac Type Severity Reaction Status Date / Time No Known Allergies Allergy Verified 04/07/20 10:05 - Home Medications Home Medications: Ambulatory Orders Rosuvastatin [Crestor -] 20 mg PO HS 04/15/19 Warfarin Na [Coumadin -] 5 mg PO DAILY@1800 #30 tablet 12/02/19 Ferrous Sulfate 325 mg PO DAILY 04/20/20 Folic Acid 1 mg PO DAILY 04/20/20 Furosemide 80 mg PO DAILY 04/20/20 Isosorbide Mononitrate [Imdur -] 30 mg PO HS 04/20/20 Pantoprazole Sodium 40 mg PO DAILY 04/20/20 Pregabalin [Lyrica] 50 mg PO DAILY 04/20/20 Morphine Sulfate [Morphine Sulfate ER] 30 mg PO BID 04/21/20 oxyCODONE HCL [Roxicodone -] 20 mg PO Q6H PRN 04/21/20 Sitagliptin Phosphate [Januvia] 50 mg PO DAILY #30 tablet 04/28/20 Family Medical History Family History: Denies Review of Systems - Review of Systems Constitutional: reports: Malaise Eyes: reports: No Symptoms HENT: reports: No Symptoms Neck: reports: No Symptoms Cardiovascular: reports: No Symptoms Respiratory: reports: No Symptoms Gastrointestinal: reports: No Symptoms Genitourinary: reports: No Symptoms Musculoskeletal: reports: Extremity Pain, Joint Pain Neurological: reports: No Symptoms Endocrine: reports: No Symptoms Physical Exam Vital Signs: Vital Signs Temperature 98.4 F 04/30/20 17:47 Pulse Rate 76 04/30/20 17:47 Respiratory Rate 19 04/30/20 17:47 Blood Pressure 124/68 04/30/20 17:47 O2 Sat by Pulse Oximetry (%) 98 04/30/20 17:47 Constitutional: Yes: Calm Eyes: Yes: Conjunctiva Clear Cardiovascular: Yes: S1, S2 Respiratory: Yes: CTA Bilaterally Gastrointestinal: Yes: Soft Renal/: Yes: WNL Musculoskeletal: Yes: Other (let arm and leg pain, hip pain) Edema: Yes Edema: LLE: Trace, RLE: Trace Neurological: Yes: Oriented Psychiatric: Yes: Oriented Labs: CBC, BMP 04/30/20 12:05 04/30/20 12:05 Imaging - Results Chest X-ray: Report Reviewed Assessment/Plan Current Medications Generic Name Dose Route Start Last Admin Trade Name Freq PRN Reason Stop Dose Admin Docusate Sodium 100 mg 04/30/20 18:30 Colace - PO Q12H PENDING SALE TO [facility] Heparin Sodium (Porcine) 5,000 unit 04/30/20 22:00 Heparin - SQ TID PENDING SALE TO [facility] Insulin Aspart 1 vial 04/30/20 22:00 Novolog Vial Sliding Scale - SQ ACHS PENDING SALE TO [facility] Protocol Morphine Sulfate 30 mg 04/30/20 22:00 Ms Contin - PO BID RADHA Oxycodone HCl 20 mg 04/30/20 18:19 Roxicodone - PO Q6H PRN PAIN LEVEL 7 - 10 Impression 1. ESRD 2. s/p fall 3. copd 4. chf 5. positive anti-histone ab 6. fluid overload 7. cva 8. anemia Plan - will arrange for HD tomorrow - ortho eval - pain control - will need admission to hospital - renal diet - fluid restriction with diet - will follow
[2020-04-30] MEDS ORDERED: SODIUM CHLORIDE 250 ML IV PRN (18:53)
[2020-04-30] MEDS: DOCUSATE SODIUM 100 MG CAPSULE (FP) PO SCH (19:00)
--- NOTE | 2020-04-30 19:49 | CONSULT ---
Consult - text type - Consultation Consultation Note: ORTHOPEDIC SURGERY CONSULTATION NOTE Department of Orthopedic Surgery HISTORY OF PRESENT ILLNESS Joao Scott is a 70 year old male with a past medical history significant for Atrial-fib (on coumadin), CHF (EF 30-35%, Global LV Hypokinesis), CAD (s/p CABG), ischemic cardiomyopathy s/p PPM, 1st degree AV Block, CVA, COPD (on 4L Home O2), ESRD on HD, and IDDM. He was admitted to [facility] after a mechanical fall at home. The orthopedic service was consulted for evaluation of the left shoulder. The injury occurred today. He did hit his head, but denies LOC. He was recently admitted from 04/20 to 04/28 for CHF exacerbation, bilateral foot ulcers, and bilateral lower extremity cellulitis. He has a history of bilateral lower extremity pain which he attributes to neuropathy. Denies any other injuries. Denies left upper extremity numbness, tingling or other constitutional complaints. The patient is retired. Denies tobacco use, drug use, alcohol abuse. The patient lives with family and uses a walker at baseline. 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 Hx Alcohol Use No History of Substance Use None Usual Living Arrangement With Spouse ADL Family Assistance History of Recent Travel No Allergies Allergy/AdvReac Type Severity Reaction Status Date / Time No Known Allergies Allergy Verified 04/07/20 10:05 Active Medications Generic Name Dose Route Start Last Admin Trade Name Freq PRN Reason Stop Dose Admin Albumin Human 12.5 gm 05/01/20 19:00 Albumin Human 25% IVPB 05/01/20 20:31 Q30M RADHA Docusate Sodium 100 mg 04/30/20 18:30 Colace - PO Q12H RADHA Heparin Sodium (Porcine) 5,000 unit 04/30/20 22:00 Heparin - SQ TID [facility] Sodium Chloride 250 mls @ 3,000 mls/hr 04/30/20 18:53 Normal Saline - IV 05/01/20 18:53 PRN PRN Hypotension during Dialysis Insulin Aspart 1 vial 04/30/20 22:00 Novolog Vial Sliding Scale - SQ ACHS RADHA Protocol Morphine Sulfate 30 mg 04/30/20 22:00 Ms Contin - PO BID RADHA Oxycodone HCl 20 mg 04/30/20 18:19 Roxicodone - PO Q6H PRN PAIN LEVEL 7 - 10 Vital Signs (last) Temp Pulse Resp BP Pulse Ox 98.4 F 76 19 124/68 98 04/30/20 17:47 04/30/20 17:47 04/30/20 17:47 04/30/20 17:47 04/30/20 17:47 Intake and Output 04/28/20 04/29/20 04/30/20 23:59 23:59 23:59 Other: Weight 171 lb Height 5 ft 8 in Body Mass Index (BMI) 25.9 Weight Measurement Method Est/Stated by Patient Laboratory 04/30/20 12:05 04/30/20 12:05 PT with INR 12.30 SEC (9.7-13.0) 04/30/20 12:05 PTT (Actin FS) 28.7 SECONDS (25.2-36.5) 04/30/20 12:05 FAMILY HISTORY Reviewed and noncontributory. REVIEW OF SYMPTOMS A twelve-point review of systems was performed and was negative except as noted in HPI. PHYSICAL EXAM Constitutional: Alert and oriented to person, place, and time. Appears well- developed and well-nourished. No acute distress, appropriate mood and affect. Right Upper Extremity: Skin warm, dry, and intact; Diffuse bruising throughout extremity. Muscle mass equal and symmetric to contralateral side. No atrophy noted. No masses or effusions noted. No tenderness to palpation. Full passive and active ROM, free from pain. Joints stable with no pathologic laxity. M/R/U/MSK/AX motor intact; SILT distally; 2+ radial pulses; Cap refill brisk. Tone and reflexes normal. Left Upper Extremity: Left shoulder swelling. Superficial abrasion over the left elbow. Diffuse bruising throughout extremity. Muscle mass equal and symmetric to contralateral side. No atrophy noted. No masses noted. Tender to palpation at left proximal humerus; nontender throughout rest of extremity. Full passive and active ROM elbow, wrist and hand, free from pain. Joints stable with no pathologic laxity. Instrinsic atriphy noted and decreased ability to abduct the fingers. M/R/MSK/AX motor intact; SILT distally except in small and ring fingers which are chronically numb as per the patient; 2+ radial pulses; Cap refill brisk. Tone and reflexes normal. Right Lower Extremity: Ulcers/Eschar noted on great toe and foot. Muscle mass equal and symmetric to contralateral side. No atrophy noted. No masses or effusions noted. No tenderness to palpation. Negative log roll and negative heel strike. Able to straight leg raise. No cords or calf tenderness. No significant calf/ankle edema. Full passive and active ROM, free from pain. Joints stable with no pathologic laxity. EHL/TA/GS motor intact; decreased sensation in patchy distribution which patient states is baseline; 2+ DP pulses; Cap refill brisk. Tone and reflexes normal. Left Lower Extremity: Ulcers/Eschar noted on foot. Muscle mass equal and symmetric to contralateral side. No atrophy noted. No masses or effusions noted. No tenderness to palpation. No cords or calf tenderness. No significant calf/ankle edema. Full passive and active ROM, free from pain. Joints stable with no pathologic laxity. EHL/TA/GS motor intact; decreased sensation in patchy distribution which patient states is baseline; 2+ DP pulses; Cap refill brisk. Tone and reflexes normal. IMAGING I personally reviewed all radiographs, CT, and other imaging. They demonstrate a left minimally displaced comminuted proximal humerus fracture involving the proximal humeral shaft. There is diffuse osteopenia noted on the remainder of h is upper extremity films without evidence of fracture. There is cervical spondylosis. His current hip imaging is limited. Metal hardware in place in the left hip with no obvious signs of loosening. ASSESSMENT AND PLAN Joao Scott is a 70 year old male presenting status post mechanical with a left sided proximal humerus fracture. He also has left sided ulnar neuropathy an d bilateral lower extremity neuropathy with non-healing ulcers. We reviewed the natural history of this condition and treatment options ranging from conservative measures to surgical options. We discussed the risks of operative management, especially considering his significant medical history. T he patient agreed to proceed with nonoperative treatment. We discussed the risks of stiffness, loss of motion, non-union, delayed union, malunion and the possibility of future surgery. We also discussed the expected time of bone healing (6 to 8 weeks) and expected duration of rehabilitation (3 months to 1 year). 1. Follow up CT scan of the left shoulder and Pelvis. 3. The patient was fitted with a shoulder sling. He will remain in the sling for 4 to 6 weeks after the injury. 3. Physical therapu: AROM exercises of the elbow, wrist, and hand should begin immediately. May begin PROM exercises of the shoulder and Codman pendulum exercises as soon as pain allows, typically within two weeks of the injury. There should be no forced abduction-external rotation. Isometric exercises to the shoulder girdle may begin at 4 weeks. AROM and AAROM exercises will be started at 6 weeks, with strengthening exercises starting 3 months after the injury according to radiographic and clinical healing. 4. Pain control 5. DVT prophylaxis 6. Podiatry follow up for foot ulcers All questions were answered. Thank you for involving our team in the care of this patient. Please have patient follow up in our office in 1 week plan to assess his progress and obtain new radiographs. [phone].
--- NOTE | 2020-04-30 20:01 | HP ---
CHIEF COMPLAIN Left arm and hip pain PCP: HISTORY OF PRESENT ILLNESS: 70M w/ pmh of Righthandedness, A-fib, HFrEF (EF 30-35%, Global LV Hypokinesis), CAD (S/P CABG), Ischemic Cardiomyopathy s/p PPM, 1st degree AV Block, CVA, COPD (on 4L Home O2), ESRD on HD (Makes minimal urine, on HD MWF), IDDM BIBA to [facility] after sustaining groundlevel fall at home in kitchen. States that he lost balance and fell backward. Hit his head on tiled floor. No blood loss. No LOC. Had pain on his Left arm and Left hip and could not get off of floor. Denies prodromal spinning sensation, lightheadedness, CP, palpitations. Had HD on 04/29/20 w/o issues. Had recent discharge on 04/28/20 after admission for CHFe and cellulitis. ER course was notable for: (1) CXR: b/l increased interstitial markings suggestive of mild pulmonary venous congestion (2) XR Left humerus: humeral neck fx (3) XR hip: Right superior pubic ramus deformity (4) WBC 11.6 Recent Travel: denies PAST MEDICAL HISTORY: as above PAST SURGICAL HISTORY: Social History: Smoking: smoked 5ppd since 16y/o; quit 3ys prior Alcohol: denies Drugs: denies Allergies No Known Allergies Allergy (Verified 04/07/20 10:05) HOME MEDICATIONS: Home Medications Medication Instructions Recorded Rosuvastatin [Crestor -] 20 mg PO HS 04/15/19 Warfarin Na [Coumadin -] 5 mg PO DAILY@1800 #30 tablet 12/02/19 Ferrous Sulfate 325 mg PO DAILY 04/20/20 Folic Acid 1 mg PO DAILY 04/20/20 Furosemide 80 mg PO DAILY 04/20/20 Isosorbide Mononitrate [Imdur -] 30 mg PO HS 04/20/20 Pantoprazole Sodium 40 mg PO DAILY 04/20/20 Pregabalin [Lyrica] 50 mg PO DAILY 04/20/20 Morphine Sulfate [Morphine Sulfate 30 mg PO BID 04/21/20 ER] oxyCODONE HCL [Roxicodone -] 20 mg PO Q6H PRN 04/21/20 Sitagliptin Phosphate [Januvia] 50 mg PO DAILY #30 tablet 04/28/20 REVIEW OF SYSTEMS CONSTITUTIONAL: Absent: fever, chills, diaphoresis, generalized weakness, malaise, loss of appetite, weight change HEENT: Absent: rhinorrhea, nasal congestion, throat pain, throat swelling, difficulty swallowing, mouth swelling, ear pain, eye pain, visual changes CARDIOVASCULAR: Absent: chest pain, syncope, palpitations, irregular heart rate, lightheadedness, peripheral edema RESPIRATORY: Absent: cough, shortness of breath, dyspnea with exertion, orthopnea, wheezing, stridor, hemoptysis GASTROINTESTINAL: Absent: abdominal pain, abdominal distension, nausea, vomiting, diarrhea, constipation, melena, hematochezia GENITOURINARY: Absent: dysuria, frequency, urgency, hesitancy, hematuria, flank pain, genital pain MUSCULOSKELETAL: Left arm pain, Left hip pain Absent: myalgia, arthralgia, joint swelling, back pain, neck pain SKIN: Absent: rash, itching, pallor HEMATOLOGIC/IMMUNOLOGIC: Absent: easy bleeding, easy bruising, lymphadenopathy, frequent infections ENDOCRINE: Absent: unexplained weight gain, unexplained weight loss, heat intolerance, cold intolerance NEUROLOGIC: Absent: headache, focal weakness or paresthesias, dizziness, unsteady gait, seizure, mental status changes, bladder or bowel incontinence PSYCHIATRIC: Absent: anxiety, depression, suicidal or homicidal ideation, hallucinations. PHYSICAL EXAMINATION Vital Signs - 24 hr 04/30/20 04/30/20 04/30/20 11:35 12:05 14:52 Temperature 98.6 F 98.5 F Pulse Rate 71 Pulse Rate [ 66 Left Radial] Respiratory 19 19 Rate Blood Pressure 98/69 Blood Pressure 118/106 H 110/86 [Right Arm] O2 Sat by Pulse 97 99 Oximetry (%) 04/30/20 17:47 Temperature 98.4 F Pulse Rate Pulse Rate [ 76 Left Radial] Respiratory 19 Rate Blood Pressure Blood Pressure 124/68 [Right Arm] O2 Sat by Pulse 98 Oximetry (%) GENERAL: Awake, alert, and fully oriented, in no acute distress. HEAD: Normal with no signs of trauma, no scalp hematoma EYES: extraocular movements intact, sclera anicteric, conjunctiva clear. No lid lag. EARS, NOSE, THROAT: Ears normal, nares patent, oropharynx clear without exudates. Moist mucous membranes. NECK: Normal range of motion, supple without lymphadenopathy, JVD, or masses. LUNGS: Breath sounds equal, clear to auscultation bilaterally. No wheezes, and no crackles. No accessory muscle use. HEART: Regular rate and rhythm, normal S1 and S2 without murmur, rub or gallop. ABDOMEN: Soft, nontender, not distended, no guarding, no rebound. MUSCULOSKELETAL: Left arm in sling with shoulder deformity. Ecchymosis of Left elbow. Mild TTP of Left ASIS. No pain of pubic palpation UPPER EXTREMITIES: 2+ pulses, warm, well-perfused. No cyanosis. No clubbing. No peripheral edema. LOWER EXTREMITIES: 2+ pulses, warm, well-perfused. No calf tenderness. No peripheral edema. Pain elicited with Left hip flexion NEUROLOGICAL: Cranial nerves II-XII intact. Laboratory Results - last 24 hr 04/30/20 04/30/20 04/30/20 12:05 12:05 12:05 WBC 11.6 H RBC 3.73 L Hgb 10.9 L Hct 35.3 L MCV 94.7 MCH 29.2 MCHC 30.9 L RDW 18.9 H Plt Count 151 MPV 9.1 Absolute Neuts (auto) 9.6 H Neutrophils % 83.2 H Neutrophils % (Manual) 86.9 H Band Neutrophils % 0.0 Lymphocytes % 6.6 L D Lymphocytes % (Manual) 4.0 L D Monocytes % 7.5 Monocytes % (Manual) 6 Eosinophils % 1.8 Eosinophils % (Manual) 1.0 Basophils % 0.9 Basophils % (Manual) 1.0 Myelocytes % (Man) 1 D Promyelocytes % (Man) 0 Blast Cells % (Manual) 0 Nucleated RBC % 1 H Metamyelocytes 0 Hypochromia 0 Toxic Granulation 1+ Platelet Estimate Decreased Platelet Comment Present Polychromasia 1+ Poikilocytosis 1+ Anisocytosis 1+ Microcytosis 1+ Macrocytosis 0 Spherocytes 1+ Ovalocytes 1+ Stomatocytes 1+ PT with INR 12.30 INR 1.04 PTT (Actin FS) 28.7 Sodium 139 Potassium 3.8 Chloride 102 Carbon Dioxide 28 Anion Gap 10 BUN 49.3 H Creatinine 4.1 H Est GFR (CKD-EPI)AfAm 15.76 Est GFR (CKD-EPI)NonAf 13.60 Random Glucose 111 H Calcium 8.6 Total Bilirubin 0.4 AST 20 ALT 24 Alkaline Phosphatase 102 Total Protein 6.4 Albumin 3.5 Blood Type Antibody Screen 04/30/20 12:05 WBC RBC Hgb Hct MCV MCH MCHC RDW Plt Count MPV Absolute Neuts (auto) Neutrophils % Neutrophils % (Manual) Band Neutrophils % Lymphocytes % Lymphocytes % (Manual) Monocytes % Monocytes % (Manual) Eosinophils % Eosinophils % (Manual) Basophils % Basophils % (Manual) Myelocytes % (Man) Promyelocytes % (Man) Blast Cells % (Manual) Nucleated RBC % Metamyelocytes Hypochromia Toxic Granulation Platelet Estimate Platelet Comment Polychromasia Poikilocytosis Anisocytosis Microcytosis Macrocytosis Spherocytes Ovalocytes Stomatocytes PT with INR INR PTT (Actin FS) Sodium Potassium Chloride Carbon Dioxide Anion Gap BUN Creatinine Est GFR (CKD-EPI)AfAm Est GFR (CKD-EPI)NonAf Random Glucose Calcium Total Bilirubin AST ALT Alkaline Phosphatase Total Protein Albumin Blood Type AB POSITIVE Antibody Screen Negative ASSESSMENT/PLAN: 70M w/ pmh of Righthandedness, A-fib, HFrEF (EF 30-35%, Global LV Hypokinesis), CAD (S/P CABG), Ischemic Cardiomyopathy s/p PPM, 1st degree AV Block, CVA, COPD (on 4L Home O2), ESRD on HD (Makes minimal urine, on HD MWF), IDDM BIBA to [facility] after sustaining groundlevel fall at home in kitchen without LOC. Admitted for Left humeus fracture. #Left Humerus fx > XR Left humerus: humeral neck fx - ortho consult([place]): --arm sling and will evaluate #Left hip pain --will evaluate further for hip fracture > XR hip: Right superior pubic ramus deformity > CT hip pending #leukocytosis --likely reactive from fx > fu UA - no abx for now #h/o Afib > INR 1.0 - HOLD warfarin in anticipation of surgery #HFrEF - cw rosuvastatin, furosemide #DM - ISS, BGM ACHS FEN - diabetic diet - no IVF DVT PPX - SQH Family Medical History Family History: Unremarkable Visit type - Emergency Visit Emergency Visit: Yes ED Registration Date: 04/30/20 Care time: The patient presented to the Emergency Department on the above date and was hospitalized for further evaluation of their emergent condition. - New Patient This patient is new to me today: Yes Date on this admission: 04/30/20 - Critical Care Critical Care patient: No ATTENDING PHYSICIAN STATEMENT I saw and evaluated the patient. I reviewed the resident's note and discussed the case with the resident. I agree with the resident's findings and plan as documented. SUBJECTIVE: OBJECTIVE: ASSESSMENT AND PLAN:
[2020-04-30] MEDS: oxyCODONE HCL 5 MG TABLET PO PRN (20:10)
[2020-04-30] MEDS ORDERED: MELATONIN 5 MG TABLETS PO ONE (21:33)
[2020-04-30] MEDS: ISOSORBIDE MONONITRATE 30 MG TAB.SR.24H (FP) PO SCH (22:12)
[2020-04-30] MEDS: morphine SO4 SUSTAINED ACTING 30 MG TABLET.SA PO SCH (22:12)
[2020-04-30] MEDS: HEPARIN NA (PORCINE) 5,000 UNITS/ML 1ML VIAL SQ SCH (22:12)
[2020-04-30] MEDS: INSULIN SLIDING SCALE (NOVOLOG) 1 VIAL SQ SCH (22:13)
[2020-05-01] MEDS ORDERED: ACETAMINOPHEN 325 MG TABLET (FP) PO ONE ×2 (01:05→06:40)
[2020-05-01] MEDS: oxyCODONE HCL 5 MG TABLET PO PRN ×4 (02:40→21:30)
[2020-05-01] MEDS: HEPARIN NA (PORCINE) 5,000 UNITS/ML 1ML VIAL SQ SCH ×3 (07:07→21:11)
[2020-05-01] MEDS: DOCUSATE SODIUM 100 MG CAPSULE (FP) PO SCH ×2 (07:07→18:32)
[2020-05-01] MEDS: INSULIN SLIDING SCALE (NOVOLOG) 1 VIAL SQ SCH ×4 (07:08→21:11)
--- NOTE | 2020-05-01 08:05 | PN ---
Progress Note, Physician Chief Complaint: Seen and examined in bed on HD. c/o pain to left shoulder.Asking for additional pain medication. COVID PCR pending History of Present Illness: 70M PMH A-fib, HFrEF (EF 30-35%, Global LV Hypokinesis), CAD (S/P CABG), Ischemic Cardiomyopathy s/p PPM, 1st degree AV Block, CVA, COPD (on 4L Home O2), ESRD on HD (Makes minimal urine, on HD MWF), IDDM BIBA to [facility] after sustaining groundlevel fall at home in kitchen. States that he lost balance and fell backward. Hit his head on tiled floor. No blood loss. No LOC. Had pain on his Left arm and Left hip and could not get off of floor. Denies prodromal sensation, lightheadedness, CP, palpitations. Had HD on 04/29/20 w/o issues. Had recent discharge on 04/28/20 after admission for CHFe and cellulitis. - Current Medication List Current Medications: Active Medications Albumin Human (Albumin Human 25%) 12.5 gm IVPB Q30M [facility] Stop: 05/01/20 20:31 Docusate Sodium (Colace -) 100 mg PO Q12H [facility] Last Admin: 05/01/20 07:07 Dose: 100 mg Documented by: Furosemide (Lasix -) 80 mg PO DAILY [facility] Heparin Sodium (Porcine) (Heparin -) 5,000 unit SQ TID [facility] Last Admin: 05/01/20 07:07 Dose: 5,000 unit Documented by: Sodium Chloride (Normal Saline -) 250 mls @ 3,000 mls/hr IV PRN PRN PRN Reason: Hypotension during Dialysis Stop: 05/01/20 18:53 Insulin Aspart (Novolog Vial Sliding Scale -) 1 vial SQ ACHS [facility]; Protocol Last Admin: 05/01/20 07:08 Dose: Not Given Documented by: Isosorbide Mononitrate (Imdur -) 30 mg PO HS [facility] Last Admin: 04/30/20 22:12 Dose: 30 mg Documented by: Morphine Sulfate (Ms Contin -) 30 mg PO BID [facility] Last Admin: 04/30/20 22:12 Dose: 30 mg Documented by: Oxycodone HCl (Roxicodone -) 20 mg PO Q6H PRN PRN Reason: PAIN LEVEL 7 - 10 Last Admin: 05/01/20 02:40 Dose: 20 mg Documented by: Pregabalin (Lyrica -) 50 mg PO DAILY RADHA - Objective Vital Signs: Vital Signs Temperature 98.3 F 05/01/20 05:00 Pulse Rate 76 05/01/20 05:00 Respiratory Rate 18 05/01/20 07:00 Blood Pressure 100/54 L 05/01/20 05:00 O2 Sat by Pulse Oximetry (%) 93 L 05/01/20 07:00 Constitutional: Yes: Well Nourished, No Distress, Calm Eyes: Yes: WNL, Conjunctiva Clear HENT: Yes: WNL, Atraumatic, Normocephalic Neck: Yes: WNL, Supple, Trachea Midline Cardiovascular: Yes: WNL, Regular Rate and Rhythm Respiratory: Yes: WNL, Regular, Diminished (at bases), On Nasal O2 Gastrointestinal: Yes: Normal Bowel Sounds, Soft, Abdomen, Obese ...Rectal Exam: Yes: Deferred Genitourinary: Yes: Anuria, Other (on HD) Musculoskeletal: Yes: Other (Left arm in sling with shoulder deformity. Ecchymosis of Left elbow. Mild TTP of Left ASIS. No pain of pubic palpation) Edema: Yes Edema: LLE: Trace, RLE: Trace Peripheral Pulses WNL: Yes Peripheral Pulses: Left Radial: 2+, Right Radial: 2+, Left Doralis Pedis: 2+, Right Dorsalis Pedis: 2+, Left Femoral: 2+, Right Femoral: 2+ Integumentary: Yes: WNL Neurological: Yes: WNL, Alert, Oriented ...Motor Strength: LUE (in sling) Psychiatric: Yes: WNL Labs: CBC, BMP 04/30/20 12:05 04/30/20 12:05 INR, PTT INR 1.04 (0.83-1.09) 04/30/20 12:05 - ....Imaging Cat Scan: Report Reviewed (nondisplaced fx to left inferior pubic ramus. Acute proximal humeral fractures) Problem List - Problems (1) ESRD on hemodialysis Assessment/Plan: renal following HD [facility] Code(s): N18.6 - END STAGE RENAL DISEASE; Z99.2 - DEPENDENCE ON RENAL DIALYSIS (2) Prophylactic measure Assessment/Plan: FEN Fluids: adequate PO intake Electrolytes: monitor & replete as needed Nutrition: renal diet DVT moderate risk sq heparin Dispo Maintain as inpatient full code discharge planning Code(s): Z29.9 - ENCOUNTER FOR PROPHYLACTIC MEASURES, UNSPECIFIED (3) Ischemic cardiomyopathy Code(s): I25.5 - ISCHEMIC CARDIOMYOPATHY (4) Pacemaker Assessment/Plan: PPM in place AV dual paced Code(s): Z95.0 - PRESENCE OF CARDIAC PACEMAKER (5) AV block, 1st degree Code(s): I44.0 - ATRIOVENTRICULAR BLOCK, FIRST DEGREE (6) CVA (cerebral vascular accident) Assessment/Plan: in past Code(s): I63.9 - CEREBRAL INFARCTION, UNSPECIFIED (7) On home oxygen therapy Assessment/Plan: maintain SPO2 >88% Code(s): Z99.81 - DEPENDENCE ON SUPPLEMENTAL OXYGEN (8) Fracture of superior pubic ramus Assessment/Plan: ortho following will need SNF/rehab after DC Code(s): S32.519A - FRACTURE OF SUPERIOR RIM OF UNSP PUBIS, INIT FOR CLOS FX (9) Person under investigation for COVID-19 Assessment/Plan: COVID Suspicion low On RA strict airborne/droplet precautions until resulted Code(s): Z20.828 - CONTACT W AND EXPOSURE TO OTH VIRAL COMMUNICABLE DISEASES (10) Acute on chronic systolic and diastolic heart failure, NYHA class 2 Assessment/Plan: on HD c/w lasix on off HD days daily weights strict I/Os Code(s): I50.43 - ACUTE ON CHRONIC COMBINED SYSTOLIC AND DIASTOLIC HRT FAIL (11) Atrial fibrillation Assessment/Plan: AV paced Code(s): I48.91 - UNSPECIFIED ATRIAL FIBRILLATION (12) CAD (coronary artery disease) Assessment/Plan: c/w imdur Code(s): I25.10 - ATHSCL HEART DISEASE OF [place] CORONARY ARTERY W/O ANG PCTRS Qualifiers: [place] vs. transplanted heart: [place] heart Associated angina: without angina (13) COPD (chronic obstructive pulmonary disease) Assessment/Plan: on home O2 Code(s): J44.9 - CHRONIC OBSTRUCTIVE PULMONARY DISEASE, UNSPECIFIED (14) Diabetes mellitus Assessment/Plan: BGM AC/HS with novolog sliding scale diabetic diet Code(s): E11.9 - TYPE 2 DIABETES MELLITUS WITHOUT COMPLICATIONS Qualifiers: Diabetes mellitus type: type 2 Diabetes mellitus intermediate frame tender insulin use: with intermediate frame tender use Diabetes mellitus complication status: with circulatory complication Diabetes mellitus complication detail: with peripheral angiopathy with gangrene Qualified Code(s): E11.52 - Type 2 diabetes mellitus with diabetic peripheral angiopathy with gangrene (15) Fracture of femoral neck, left Assessment/Plan: arm in sling maintain for 4-6 weeks PT as per ortho recs Code(s): S72.002A - FRACTURE OF UNSP PART OF NECK OF LEFT FEMUR, INIT Qualifiers: Encounter type: initial encounter Fracture type: closed Qualified C ode(s): S72.002A - Fracture of unspecified part of neck of left femur, initial encounter for closed fracture (16) Leukocytosis Assessment/Plan: 10.5 UA leuk 1+, wbc 59, nit neg asymtomatic, afebrile monitor off abx Code(s): D72.829 - ELEVATED WHITE BLOOD CELL COUNT, UNSPECIFIED Qualifiers: Leukocytosis type: other Qualified Code(s): D72.828 - Other elevated white blood cell count Visit type - Emergency Visit Emergency Visit: Yes ED Registration Date: 04/30/20 Care time: The patient presented to the Emergency Department on the above date and was hospitalized for further evaluation of their emergent condition. - New Patient This patient is new to me today: Yes Date on this admission: 05/01/20 - Critical Care Critical Care patient: No - Discharge Referral Referred to [facility] No
[2020-05-01 08:20] LABS: HEMATOCRIT 30.9 % (35.4-49); HEMOGLOBIN 9.7 GM/dL (11.7-16.9); MCH 28.9 pg (25.7-33.7); MCHC 31.3 g/dl (32.0-35.9); MEAN CELL VOLUME 92.3 fl (80-96); MEAN PLT VOLUME 9.4 fl (7.5-11.1); PLATELET COUNT 150 K/MM3 (134-434); RBC 3.35 M/mm3 (4.00-5.60); RDW 18.4 % (11.9-15.9); WHITE BLOOD COUNT 10.4 K/mm3 (4.0-10.0)
[2020-05-01 08:32] LABS: EPI CELLS 4 /uL (0-25.1); HYALINE CASTS 3 /uL (0-3.1); URINE APPEARANCE CLEAR; URINE BACTERIA 5 /uL (0-1359); URINE BILIRUBIN 2+ (NEGATIVE); URINE COLOR DK YELLOW; URINE GLUCOSE (UA) NEGATIVE (NEGATIVE); URINE KETONE TRACE (NEGATIVE); URINE LEUK ESTERASE 1+ (NEGATIVE); URINE NITRITE NEGATIVE (NEGATIVE); URINE PROTEIN 2+ (NEGATIVE); URINE UROBILINOGEN 0.2 mg/dL (0.2-1.0); URINE WBC 59 /uL (0-25.8)
[2020-05-01 08:38] LABS: BLOOD UREA NITROGEN 63.8 mg/dL (7-18); CALCIUM 8.4 mg/dL (8.5-10.1); CREATININE 4.7 mg/dL (0.55-1.3); POTASSIUM 4.3 mmol/L (3.5-5.1)
[2020-05-01 09:33] LABS: URINE RBC 41.8 /uL (0-23.9)
[2020-05-01] MEDS: ALBUMIN HUMAN 25% 12.5 GM/50 ML VIAL IVPB SCH ×4 (10:00→13:20)
--- NOTE | 2020-05-01 10:48 | EKG ---
Test Reason : Blood Pressure : / mmHG Vent. Rate : 079 BPM Atrial Rate : 046 BPM P-R Int : 000 ms QRS Dur : 184 ms QT Int : 452 ms P-R-T Axes : 000 -87 083 degrees QTc Int : 518 ms WIDE QRS RHYTHM WITH FREQUENT AV dual-paced complexes AND WITH OCCASIONAL PREMATURE VENTRICULAR COMPLEXES LEFT AXIS DEVIATION ABNORMAL ECG WHEN COMPARED WITH ECG OF 21-APR-2020 00:55, ELECTRONIC VENTRICULAR PACEMAKER HAS REPLACED WIDE QRS RHYTHM Confirmed by ERINN CARDOZA MD [id number]) on 05/01/2020 10:48:01 AM Referred By: Confirmed By:ERINN CARDOZA MD
[2020-05-01] MEDS: morphine SO4 SUSTAINED ACTING 30 MG TABLET.SA PO SCH ×2 (11:05→21:05)
[2020-05-01] MEDS: FUROSEMIDE 40 MG TABLET (FP) PO SCH (11:11)
[2020-05-01] MEDS: PREGABALIN 50 MG CAPSULE PO SCH (11:11)
[2020-05-01] MEDS ORDERED: morphine SULFATE 4 MG/ML VIAL IVPUSH ONE (11:29)
--- NOTE | 2020-05-01 16:05 | PN ---
Progress Note, Physician History of Present Illness: Pt seen and examined at bedside. He is awake and alert. He denies shortness of breath. He is tolerating HD. - Current Medication List Current Medications: Active Medications Docusate Sodium (Colace -) 100 mg PO Q12H [facility] Last Admin: 05/01/20 07:07 Dose: 100 mg Documented by: Furosemide (Lasix -) 80 mg PO DAILY [facility] Last Admin: 05/01/20 11:11 Dose: 80 mg Documented by: Heparin Sodium (Porcine) (Heparin -) 5,000 unit SQ TID [facility] Last Admin: 05/01/20 14:00 Dose: 5,000 unit Documented by: Sodium Chloride (Normal Saline -) 250 mls @ 3,000 mls/hr IV PRN PRN PRN Reason: Hypotension during Dialysis Stop: 05/01/20 18:53 Insulin Aspart (Novolog Vial Sliding Scale -) 1 vial SQ ACHS [facility]; Protocol Last Admin: 05/01/20 11:19 Dose: Not Given Documented by: Isosorbide Mononitrate (Imdur -) 30 mg PO HS [facility] Last Admin: 04/30/20 22:12 Dose: 30 mg Documented by: Morphine Sulfate (Ms Contin -) 30 mg PO BID [facility] Last Admin: 05/01/20 11:05 Dose: 30 mg Documented by: Oxycodone HCl (Roxicodone -) 20 mg PO Q6H PRN PRN Reason: PAIN LEVEL 7 - 10 Last Admin: 05/01/20 15:24 Dose: 20 mg Documented by: Pregabalin (Lyrica -) 50 mg PO DAILY [facility] Last Admin: 05/01/20 11:11 Dose: 50 mg Documented by: - Objective Vital Signs: Vital Signs Temperature 98.4 F 05/01/20 14:21 Pulse Rate 80 05/01/20 14:21 Respiratory Rate 18 05/01/20 14:21 Blood Pressure 132/63 05/01/20 14:21 O2 Sat by Pulse Oximetry (%) 93 L 05/01/20 07:00 Constitutional: Yes: Calm Eyes: Yes: Conjunctiva Clear HENT: Yes: Atraumatic Cardiovascular: Yes: S1, S2 Respiratory: Yes: CTA Bilaterally Gastrointestinal: Yes: Soft Genitourinary: Yes: WNL Musculoskeletal: Yes: Other (arm and hip pain) Edema: No Integumentary: Yes: WNL Neurological: Yes: Oriented Psychiatric: Yes: Oriented Labs: CBC, BMP 05/01/20 07:35 05/01/20 07:35 INR, PTT INR 1.04 (0.83-1.09) 04/30/20 12:05 Assessment/Plan Current Medications Generic Name Dose Route Start Last Admin Trade Name Christianoq PRN Reason Stop Dose Admin Docusate Sodium 100 mg 04/30/20 18:30 05/01/20 07:07 Colace - PO 100 mg Q12H [facility] Administration Furosemide 80 mg 05/01/20 10:00 05/01/20 11:11 Lasix - PO 80 mg DAILY [facility] Administration Heparin Sodium (Porcine) 5,000 unit 04/30/20 22:00 05/01/20 14:00 Heparin - SQ 5,000 unit TID [facility] Administration Sodium Chloride 250 mls @ 3,000 mls/hr 04/30/20 18:53 Normal Saline - IV 05/01/20 18:53 PRN PRN Hypotension during Dialysis Insulin Aspart 1 vial 04/30/20 22:00 05/01/20 11:19 Novolog Vial Sliding Scale - SQ Not Given ACHS [facility] Protocol Isosorbide Mononitrate 30 mg 04/30/20 22:00 04/30/20 22:12 Imdur - PO 30 mg HS [facility] Administration Morphine Sulfate 30 mg 04/30/20 22:00 05/01/20 11:05 Ms Contin - PO 30 mg BID [facility] Administration Oxycodone HCl 20 mg 04/30/20 18:19 05/01/20 15:24 Roxicodone - PO 20 mg Q6H PRN Administration PAIN LEVEL 7 - 10 Pregabalin 50 mg 05/01/20 10:00 05/01/20 11:11 Lyrica - PO 50 mg DAILY [facility] Administration Impression 1. ESRD 2. s/p fall 3. copd 4. chf 5. positive anti-histone ab 6. fluid overload 7. cva 8. anemia Plan - HD today - lasix on non HD days - ortho eval - discussed with medical team - will see again on Monday for HD - renal diet - fluid restriction with diet
[2020-05-01] MEDS ORDERED: ACETAMINOPHEN 325 MG TABLET (FP) PO PRN (17:02)
--- NOTE | 2020-05-01 17:33 | PN ---
Progress Note (short form) - Note Progress Note: ORTHOPEDIC SURGERY PROGRESS NOTE Department of Orthopedic Surgery SUBJECTIVE No acute events overnight. No complaints currently. Denies chest pain, shortness of breath, or calf pain. No nausea or vomiting. Tolerating oral intake. Pain control difficult overnight, but improving. PHYSICAL EXAMINATION General: Alert, oriented, cooperative and no distress. Right Upper Extremity: Skin warm, dry, and intact; Diffuse bruising throughout extremity. Muscle mass equal and symmetric to contralateral side. No atrophy noted. No masses or effusions noted. No tenderness to palpation. Full passive and active ROM, free from pain. Joints stable with no pathologic laxity. M/R/U/MSK/AX motor intact; SILT distally; 2+ radial pulses; Cap refill brisk. Tone and reflexes normal. Left Upper Extremity: Left shoulder swelling. Superficial abrasion over the left elbow. Diffuse bruising throughout extremity. Muscle mass equal and symmetric to contralateral side. No atrophy noted. No masses noted. Tender to palpation at left proximal humerus; nontender throughout rest of extremity. Full passive and active ROM elbow, wrist and hand, free from pain. Joints stable with no pathologic laxity. Instrinsic atriphy noted and decreased ability to abduct the fingers. M/R/MSK/AX motor intact; SILT distally except in small and ring fingers which are chronically numb as per the patient; 2+ radial pulses; Cap refill brisk. Tone and reflexes normal. Right Lower Extremity: Ulcers/Eschar noted on great toe and foot. Muscle mass equal and symmetric to contralateral side. No atrophy noted. No masses or effusions noted. No tenderness to palpation. Negative log roll and negative heel strike. Able to straight leg raise. No cords or calf tenderness. No significant calf/ankle edema. Full passive and active ROM, free from pain. Joints stable with no pathologic laxity. EHL/TA/GS motor intact; decreased sensation in patchy distribution which patient states is baseline; 2+ DP pulses; Cap refill brisk. Tone and reflexes normal. Left Lower Extremity: Ulcers/Eschar noted on foot. Muscle mass equal and symmetric to contralateral side. No atrophy noted. No masses or effusions noted. No tenderness to palpation. No cords or calf tenderness. No significant calf/ankle edema. Full passive and active ROM, free from pain. Joints stable with no pathologic laxity. EHL/TA/GS motor intact; decreased sensation in patchy distribution which patient states is baseline; 2+ DP pulses; Cap refill brisk. Tone and reflexes normal. Intake & Output 04/29/20 04/30/20 05/01/20 23:59 23:59 23:59 Intake Total 320 900 Output Total 2800 Balance 320 -1900 Intake: IV 300 Normal Saline - 250 ml @ 300 3000 mls/hr IV PRN PRN Rx #:[id number] Oral 320 500 Albumin 100 Output: Fluid Removed, 2800 Hemodialysis Other: Voiding Method Urinal Urinal # Unmeasured Voids Void 2 Bowel Movement No No Weight 171 lb 171 lb Height 5 ft 8 in Body Mass Index (BMI) 25.9 Weight Measurement Method Est/Stated by Patient Active Medications Generic Name Dose Route Start Last Admin Trade Name Freq PRN Reason Stop Dose Admin Acetaminophen 650 mg 05/01/20 17:30 Tylenol - PO Q6H PRN FEVER Acetaminophen 650 mg 05/01/20 17:30 Tylenol - PO Q6H PRN PAIN SCALE 1-3 Docusate Sodium 100 mg 04/30/20 18:30 05/01/20 07:07 Colace - PO 100 mg Q12H [facility] Administration Furosemide 80 mg 05/01/20 10:00 05/01/20 11:11 Lasix - PO 80 mg DAILY [facility] Administration Heparin Sodium (Porcine) 5,000 unit 04/30/20 22:00 05/01/20 14:00 Heparin - SQ 5,000 unit TID [facility] Administration Sodium Chloride 250 mls @ 3,000 mls/hr 04/30/20 18:53 Normal Saline - IV 05/01/20 18:53 PRN PRN Hypotension during Dialysis Insulin Aspart 1 vial 04/30/20 22:00 05/01/20 16:37 Novolog Vial Sliding Scale - SQ Not Given ACHS [facility] Protocol Isosorbide Mononitrate 30 mg 04/30/20 22:00 04/30/20 22:12 Imdur - PO 30 mg HS [facility] Administration Morphine Sulfate 30 mg 04/30/20 22:00 05/01/20 11:05 Ms Contin - PO 30 mg BID [facility] Administration Oxycodone HCl 20 mg 04/30/20 18:19 05/01/20 15:24 Roxicodone - PO 20 mg Q6H PRN Administration PAIN LEVEL 7 - 10 Pregabalin 50 mg 05/01/20 10:00 05/01/20 11:11 Lyrica - PO 50 mg DAILY [facility] Administration Vital Signs (last) Temp Pulse Resp BP Pulse Ox 98.4 F 80 18 132/63 93 L 05/01/20 14:21 05/01/20 14:21 05/01/20 14:21 05/01/20 14:21 05/01/20 07:00 Laboratory (coagulation) PT with INR 12.30 SEC (9.7-13.0) 04/30/20 12:05 Laboratory 05/01/20 07:35 05/01/20 07:[address] of the left shoulder shows a comminuted proximal humerus fracture involving the proximal humeral shaft. The fracture is in satisfactory alignment. CT of the Pelvis shows a nondisplaced fracture of the inferior pubic ramus. No hip fracture identifies. Metal hardware in left hip in place with no signs of loosening. ASSESSMENT AND PLAN Joao Scott is a 70 year old male with (1) a left sided proximal humerus fracture, and (2) nondisplaced inferior pubic ramus fracture. 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 Due to the patients significant medical history the patient is at increased risk for infection and nonunion with surgical intervention. The patient agreed to proceed with nonoperative treatment. 1. Shoulder sling for 4 to 6 weeks after the injury. 2. Physical therapu: AROM exercises of the elbow, wrist, and hand should begin immediately. May begin PROM exercises of the shoulder and Codman pendulum exercises as soon as pain allows, typically within two weeks of the injury. There should be no forced abduction-external rotation. Isometric exercises to the shoulder girdle may begin at 4 weeks. AROM and AAROM exercises will be star wily at 6 weeks, with strengthening exercises starting 3 months after the injury according to radiographic and clinical healing. 3. Pain control; NWB LUE; WBAT LLE 4. DVT prophylaxis 5. Podiatry follow up for foot ulcers All questions were answered. Thank you for involving our team in the care of this patient. Please have patient follow up in our office in 1 week for new radiographs. [phone].
[2020-05-01] MEDS: ACETAMINOPHEN 325 MG TABLET (FP) PO PRN (17:41)
[2020-05-01] MEDS ORDERED: MELATONIN 5 MG TABLETS PO ONE (21:22)
[2020-05-01] MEDS: ISOSORBIDE MONONITRATE 30 MG TAB.SR.24H (FP) PO SCH (21:27)
[2020-05-02] MEDS: ACETAMINOPHEN 325 MG TABLET (FP) PO PRN ×3 (00:03→23:36)
[2020-05-02] MEDS: oxyCODONE HCL 5 MG TABLET PO PRN ×5 (03:35→21:58)
[2020-05-02] MEDS: DOCUSATE SODIUM 100 MG CAPSULE (FP) PO SCH ×2 (05:58→17:56)
[2020-05-02] MEDS: HEPARIN NA (PORCINE) 5,000 UNITS/ML 1ML VIAL SQ SCH ×3 (06:01→21:07)
[2020-05-02] MEDS: INSULIN SLIDING SCALE (NOVOLOG) 1 VIAL SQ SCH ×4 (06:06→21:02)
--- NOTE | 2020-05-02 08:58 | PN ---
Progress Note, Physician Chief Complaint: Seen and examined in bed. HD done yesterday c/o pain to left shoulder.Not able to move in bed secondary to pelvic pain. COVID PCR pending History of Present Illness: 70M PMH A-fib, HFrEF (EF 30-35%, Global LV Hypokinesis), CAD (S/P CABG), Ischemic Cardiomyopathy s/p PPM, 1st degree AV Block, CVA, COPD (on 4L Home O2), ESRD on HD (Makes minimal urine, on HD MWF), IDDM BIBA to [facility] after sustaining groundlevel fall at home in kitchen. States that he lost balance and fell b ackward. Hit his head on tiled floor. No blood loss. No LOC. Had pain on his Left arm and Left hip and could not get off of floor. Denies prodromal sensation, lightheadedness, CP, palpitations. Had HD on 04/29/20 w/o issues. Had recent discharge on 04/28/20 after admission for CHFe and cellulitis. - Current Medication List Current Medications: Active Medications Acetaminophen (Tylenol -) 650 mg PO Q6H PRN PRN Reason: FEVER Last Admin: 05/01/20 17:41 Dose: 650 mg Documented by: Acetaminophen (Tylenol -) 650 mg PO Q6H PRN PRN Reason: PAIN SCALE 1-3 Last Admin: 05/02/20 05:58 Dose: 650 mg Documented by: Docusate Sodium (Colace -) 100 mg PO Q12H [facility] Last Admin: 05/02/20 05:58 Dose: 100 mg Documented by: Furosemide (Lasix -) 80 mg PO DAILY [facility] Last Admin: 05/01/20 11:11 Dose: 80 mg Documented by: Heparin Sodium (Porcine) (Heparin -) 5,000 unit SQ TID [facility] Last Admin: 05/02/20 06:01 Dose: 5,000 unit Documented by: Insulin Aspart (Novolog Vial Sliding Scale -) 1 vial SQ ACHS [facility]; Protocol Last Admin: 05/02/20 06:06 Dose: Not Given Documented by: Isosorbide Mononitrate (Imdur -) 30 mg PO HS [facility] Last Admin: 05/01/20 21:27 Dose: Not Given Documented by: Morphine Sulfate (Ms Contin -) 30 mg PO BID [facility] Last Admin: 05/01/20 21:05 Dose: 30 mg Documented by: Oxycodone HCl (Roxicodone -) 20 mg PO Q6H PRN PRN Reason: PAIN LEVEL 7 - 10 Last Admin: 05/02/20 03:35 Dose: 20 mg Documented by: Pregabalin (Lyrica -) 50 mg PO DAILY [facility] Last Admin: 05/01/20 11:11 Dose: 50 mg Documented by: - Objective Vital Signs: Vital Signs Temperature 98.7 F 05/02/20 06:00 Pulse Rate 73 05/02/20 06:00 Respiratory Rate 18 05/02/20 06:00 Blood Pressure 117/78 05/02/20 06:00 O2 Sat by Pulse Oximetry (%) 95 05/01/20 21:00 Additional Findings/Remarks: Constitutional: Yes: Well Nourished, No Distress, Calm Eyes: Yes: WNL, Conjunctiva Clear HENT: Yes: WNL, Atraumatic, Normocephalic Neck: Yes: WNL, Supple, Trachea Midline Cardiovascular: Yes: WNL, Regular Rate and Rhythm Respiratory: Yes: WNL, Regular, Diminished (at bases), On Nasal O2 Gastrointestinal: Yes: Normal Bowel Sounds, Soft, Abdomen, Obese ...Rectal Exam: Yes: Deferred Genitourinary: Yes: Anuria, Other (on HD) Musculoskeletal: Yes: Other (Left arm in sling with shoulder deformity. Ecchymosis of Left elbow, multiple skin tears, Mild TTP of Left ASIS. No pain of pubic palpation) Edema: Yes Edema: LLE: Trace, RLE: Trace Peripheral Pulses WNL: Yes Peripheral Pulses: Left Radial: 2+, Right Radial: 2+, Left Doralis Pedis: 2+, Right Dorsalis Pedis: 2+, Left Femoral: 2+, Right Femoral: 2+ Integumentary: Chronic ulceration on the right hallux and left 2nd digit. bilateral digital gangrenous ulcers Neurological: Yes: WNL, Alert, Oriented ...Motor Strength: LUE (in sling) Psychiatric: Yes: WNL Labs: CBC, BMP 05/01/20 07:35 05/01/20 07:35 INR, PTT INR 1.04 (0.83-1.09) 04/30/20 12:05 Problem List - Problems (1) ESRD on hemodialysis Assessment/Plan: renal following HD MWF Code(s): N18.6 - END STAGE RENAL DISEASE; Z99.2 - DEPENDENCE ON RENAL DIALYSIS (2) Prophylactic measure Assessment/Plan: FEN Fluids: adequate PO intake Electrolytes: monitor & replete as needed Nutrition: renal/DM diet DVT moderate risk sq heparin Dispo Maintain as inpatient full code discharge planning to SNF/rehab Code(s): Z29.9 - ENCOUNTER FOR PROPHYLACTIC MEASURES, UNSPECIFIED (3) Ischemic cardiomyopathy Code(s): I25.5 - ISCHEMIC CARDIOMYOPATHY (4) Pacemaker Assessment/Plan: PPM in place AV dual paced Code(s): Z95.0 - PRESENCE OF CARDIAC PACEMAKER (5) AV block, 1st degree Code(s): I44.0 - ATRIOVENTRICULAR BLOCK, FIRST DEGREE (6) CVA (cerebral vascular accident) Assessment/Plan: in past Code(s): I63.9 - CEREBRAL INFARCTION, UNSPECIFIED (7) On home oxygen therapy Assessment/Plan: maintain SPO2 >88% Code(s): Z99.81 - DEPENDENCE ON SUPPLEMENTAL OXYGEN (8) Fracture of superior pubic ramus Assessment/Plan: ortho following will need SNF/rehab after DC Code(s): S32.519A - FRACTURE OF SUPERIOR RIM OF UNSP PUBIS, INIT FOR CLOS FX (9) Person under investigation for COVID-19 Assessment/Plan: negative PCR Code(s): Z20.828 - CONTACT W AND EXPOSURE TO OTH VIRAL COMMUNICABLE DISEASES (10) Acute on chronic systolic and diastolic heart failure, NYHA class 2 Assessment/Plan: on HD c/w lasix on off HD days daily weights strict I/Os Code(s): I50.43 - ACUTE ON CHRONIC COMBINED SYSTOLIC AND DIASTOLIC HRT FAIL (11) Atrial fibrillation Assessment/Plan: AV paced Code(s): I48.91 - UNSPECIFIED ATRIAL FIBRILLATION (12) CAD (coronary artery disease) Assessment/Plan: c/w imdur Code(s): I25.10 - ATHSCL HEART DISEASE OF [place] CORONARY ARTERY W/O ANG PCTRS Qualifiers: [place] vs. transplanted heart: [place] heart Associated angina: without angina (13) COPD (chronic obstructive pulmonary disease) Assessment/Plan: on home O2 Code(s): J44.9 - CHRONIC OBSTRUCTIVE PULMONARY DISEASE, UNSPECIFIED (14) Diabetes mellitus Assessment/Plan: BGM AC/HS with novolog sliding scale diabetic diet Code(s): E11.9 - TYPE 2 DIABETES MELLITUS WITHOUT COMPLICATIONS Qualifiers: Diabetes mellitus type: type 2 Diabetes mellitus library technology instructor insulin use: with library technology instructor use Diabetes mellitus complication status: with circulatory complication Diabetes mellitus complication detail: with peripheral angiopathy with gangrene Qualified Code(s): E11.52 - Type 2 diabetes mellitus with diabe tic peripheral angiopathy with gangrene (15) Fracture of femoral neck, left Assessment/Plan: arm in sling maintain for 4-6 weeks PT as per ortho recs Code(s): S72.002A - FRACTURE OF UNSP PART OF NECK OF LEFT FEMUR, INIT Qualifiers: Encounter type: initial encounter Fracture type: closed Qualified Code(s): S72.002A - Fracture of unspecified part of neck of left femur, initial encounter for closed fracture (16) Leukocytosis Assessment/Plan: 10 UA leuk 1+, wbc 59, nit neg asymtomatic, afebrile monitor off abx Code(s): D72.829 - ELEVATED WHITE BLOOD CELL COUNT, UNSPECIFIED Qualifiers: Leukocytosis type: other Qualified Code(s): D72.828 - Other elevated white blood cell count (17) Chronic ulcer of leg Assessment/Plan: chrinic diabeteic ulcers to LE BL followed by Dr Carson and Dr Velez Code(s): L97.909 - NON-PRS CHRONIC ULC UNSP PRT OF UNSP LOW LEG W UNSP SEVERITY Visit type - Emergency Visit Emergency Visit: Yes ED Registration Date: 04/30/20 Care time: The patient presented to the Emergency Department on the above date and was hospitalized for further evaluation of their emergent condition. - New Patient This patient is new to me today: No - Critical Care Critical Care patient: No - Discharge Referral Referred to [facility] Med [facility].C.: No
[2020-05-02 09:17] LABS: BASO % 1.3 % (0-2.0); EOS % 1.4 % (0-4.5); HEMATOCRIT 30.6 % (35.4-49); HEMOGLOBIN 9.5 GM/dL (11.7-16.9); LYMPH % 5.2 % (8-40); MCH 28.9 pg (25.7-33.7); MEAN CELL VOLUME 93.3 fl (80-96); MEAN PLT VOLUME 9.7 fl (7.5-11.1); MONO % 9.5 % (3.8-10.2); NEUT % 82.6 % (42.8-82.8); PLATELET COUNT 141 K/MM3 (134-434); RBC 3.28 M/mm3 (4.00-5.60); RDW 18.3 % (11.9-15.9); WHITE BLOOD COUNT 10.6 K/mm3 (4.0-10.0)
[2020-05-02 09:51] LABS: ALBUMIN 3.5 g/dl (3.4-5.0); BILIRUBIN,TOTAL 0.7 mg/dL (0.2-1); BLOOD UREA NITROGEN 46.9 mg/dL (7-18); CALCIUM 8.5 mg/dL (8.5-10.1); CREATININE 3.9 mg/dL (0.55-1.3); TOT PROT 6.4 g/dl (6.4-8.2)
[2020-05-02] MEDS: morphine SO4 SUSTAINED ACTING 30 MG TABLET.SA PO SCH ×2 (09:54→21:07)
[2020-05-02] MEDS: PREGABALIN 50 MG CAPSULE PO SCH (09:54)
[2020-05-02] MEDS: FUROSEMIDE 40 MG TABLET (FP) PO SCH (09:54)
[2020-05-02] MEDS ORDERED: morphine SULFATE 4 MG/ML VIAL IVPUSH ONE (11:30)
[2020-05-02] MEDS ORDERED: INSULIN (NOVOLOG) ASPART 100 UNITS/ML 10ML VIAL ONE (11:32)
--- NOTE | 2020-05-02 12:15 | CONSULT ---
Consult - text type - Consultation Consultation Note: Seen/evaluated at bedside NAD with ulceration on the right hallux and left 2nd digit. Well known to my partner and Dr. Carson. Is pending angio and intervention by Dr. Carson before any debridement is planned. Admitted due to a fall at home and shoulder pain. ZION: Pedal pulses nonpalpable, TG wnl, CFT about 5 seconds to all digits. There is dry gangrenous changes to the dorsal aspect of the IPJ of the right hallux. There is no probing to bone, no purulence, no fluctuance, no streaking cellulitis, no signs of acute infection. There is dry gangrenous changes to the dorsal PIPJ of the left second digit, no probing to bone, no purulence, no fluctuance, no streaking cellulitis, no signs of infection. Imp: 70 year old diabetic PVD male with bilateral digital gangrenous ulcers Continue local care Will follow patient closely in wound healing center. No acute podiatric intervention required. Can f/u next Monday or will see on monday during wound care if patient still admitted. Will need vascular f/u either as inpatient or outpatient on d/c.
[2020-05-02 14:18] LABS: ANISOCYTOSIS 1+; MACROCYTOSIS 0; OVALOCYTE 1+; PLATELET ESTIMATE DECREASED
[2020-05-02] MEDS: ISOSORBIDE MONONITRATE 30 MG TAB.SR.24H (FP) PO SCH (21:07)
[2020-05-02] MEDS: MELATONIN 5 MG TABLETS PO SCH (23:37)
[2020-05-03] MEDS: oxyCODONE HCL 5 MG TABLET PO PRN ×6 (01:59→22:38)
[2020-05-03] MEDS: DOCUSATE SODIUM 100 MG CAPSULE (FP) PO SCH ×3 (05:35→18:53)
[2020-05-03] MEDS: ACETAMINOPHEN 325 MG TABLET (FP) PO PRN ×2 (05:35→19:54)
[2020-05-03] MEDS: HEPARIN NA (PORCINE) 5,000 UNITS/ML 1ML VIAL SQ SCH ×3 (05:36→21:22)
[2020-05-03] MEDS: INSULIN SLIDING SCALE (NOVOLOG) 1 VIAL SQ SCH ×4 (06:03→23:45)
--- NOTE | 2020-05-03 08:53 | PN ---
Progress Note, Physician Chief Complaint: Seen and examined in bed.Pain to left shoulder/pelvis slightly improved. COVID PCR negative. Discussed with ot need to SNF/Rehab on dc and is agreeable History of Present Illness: 70M PMH A-fib, HFrEF (EF 30-35%, Global LV Hypokinesis), CAD (S/P CABG), Ischemic Cardiomyopathy s/p PPM, 1st degree AV Block, CVA, COPD (on 4L Home O2), ESRD on HD (Makes minimal urine, on HD MWF), IDDM BIBA to [facility] after sustaining groundlevel fall at home in kitchen. States that he lost balance and fell backward. Hit his head on tiled floor. No blood loss. No LOC. Had pain on his Left arm and Left hip and could not get off of floor. Denies prodromal sensation, lightheadedness, CP, palpitations. Had HD on 04/29/20 w/o issues. Had recent discharge on 04/28/20 after admission for CHFe and cellulitis. - Current Medication List Current Medications: Active Medications Acetaminophen (Tylenol -) 650 mg PO Q6H PRN PRN Reason: FEVER Last Admin: 05/01/20 17:41 Dose: 650 mg Documented by: Acetaminophen (Tylenol -) 650 mg PO Q6H PRN PRN Reason: PAIN SCALE 1-3 Last Admin: 05/03/20 05:35 Dose: 650 mg Documented by: Docusate Sodium (Colace -) 100 mg PO Q12H [facility] Last Admin: 05/03/20 06:03 Dose: Not Given Documented by: Furosemide (Lasix -) 80 mg PO DAILY [facility] Last Admin: 05/02/20 09:54 Dose: 80 mg Documented by: Heparin Sodium (Porcine) (Heparin -) 5,000 unit SQ TID [facility] Last Admin: 05/03/20 05:36 Dose: 5,000 unit Documented by: Insulin Aspart (Novolog Vial Sliding Scale -) 1 vial SQ [facility]; Protocol Last Admin: 05/03/20 06:03 Dose: Not Given Documented by: Isosorbide Mononitrate (Imdur -) 30 mg PO [facility] Last Admin: 05/02/20 21:07 Dose: 30 mg Documented by: Melatonin (Melatonin) 10 mg PO [facility] Last Admin: 05/02/20 23:37 Dose: 10 mg Documented by: Morphine Sulfate (Ms Contin -) 30 mg PO BID [facility] Last Admin: 05/02/20 21:07 Dose: 30 mg Documented by: Oxycodone HCl (Roxicodone -) 20 mg PO Q4H PRN PRN Reason: PAIN LEVEL 7 - 10 Last Admin: 05/03/20 06:01 Dose: 20 mg Documented by: Pregabalin (Lyrica -) 50 mg PO DAILY [facility] Last Admin: 05/02/20 09:54 Dose: 50 mg Documented by: - Objective Vital Signs: Vital Signs Temperature 98.4 F 05/03/20 05:56 Pulse Rate 63 05/03/20 05:56 Respiratory Rate 18 05/03/20 05:56 Blood Pressure 118/79 05/03/20 05:56 O2 Sat by Pulse Oximetry (%) 96 05/02/20 21:00 Labs: CBC, BMP 05/02/20 08:25 05/02/20 08:25 INR, PTT INR 1.04 (0.83-1.09) 04/30/20 12:05 Problem List - Problems (1) ESRD on hemodialysis Assessment/Plan: renal following HD MWF Code(s): N18.6 - END STAGE RENAL DISEASE; Z99.2 - DEPENDENCE ON RENAL DIALYSIS (2) Prophylactic measure Assessment/Plan: FEN Fluids: adequate PO intake Electrolytes: monitor & replete as needed Nutrition: renal/DM diet DVT moderate risk sq heparin Dispo Maintain as inpatient full code discharge planning to SNF/rehab Code(s): Z29.9 - ENCOUNTER FOR PROPHYLACTIC MEASURES, UNSPECIFIED (3) Ischemic cardiomyopathy Code(s): I25.5 - ISCHEMIC CARDIOMYOPATHY (4) Pacemaker Assessment/Plan: PPM in place AV dual paced Code(s): Z95.0 - PRESENCE OF CARDIAC PACEMAKER (5) AV block, 1st degree Assessment/Plan: PPM in place Code(s): I44.0 - ATRIOVENTRICULAR BLOCK, FIRST DEGREE (6) CVA (cerebral vascular accident) Assessment/Plan: in past PT Code(s): I63.9 - CEREBRAL INFARCTION, UNSPECIFIED (7) On home oxygen therapy Assessment/Plan: maintain SPO2 >88% Code(s): Z99.81 - DEPENDENCE ON SUPPLEMENTAL OXYGEN (8) Fracture of superior pubic ramus Assessment/Plan: ortho following WBAT LLE will need SNF/rehab after DC Code(s): S32.519A - FRACTURE OF SUPERIOR RIM OF UNSP PUBIS, INIT FOR CLOS FX (9) Acute on chronic systolic and diastolic heart failure, NYHA class 2 Assessment/Plan: on HD c/w lasix on off HD days daily weights strict I/Os Code(s): I50.43 - ACUTE ON CHRONIC COMBINED SYSTOLIC AND DIASTOLIC HRT FAIL (10) Atrial fibrillation Assessment/Plan: AV paced Code(s): I48.91 - UNSPECIFIED ATRIAL FIBRILLATION (11) CAD (coronary artery disease) Assessment/Plan: c/w imdur Code(s): I25.10 - ATHSCL HEART DISEASE OF [place] CORONARY ARTERY W/O ANG PCTRS Qualifiers: [place] vs. transplanted heart: [place] heart Associated angina: without angina (12) COPD (chronic obstructive pulmonary disease) Assessment/Plan: on home O2 Code(s): J44.9 - CHRONIC OBSTRUCTIVE PULMONARY DISEASE, UNSPECIFIED (13) Diabetes mellitus Assessment/Plan: BGM AC/HS with novolog sliding scale diabetic diet Code(s): E11.9 - TYPE 2 DIABETES MELLITUS WITHOUT COMPLICATIONS Qualifiers: Diabetes mellitus type: type 2 Diabetes mellitus assisted insulin use: with assisted use Diabetes mellitus complication status: with circulatory complication Diabetes mellitus complication detail: with peripheral angiopathy with gangrene Qualified Code(s): E11.52 - Type 2 diabetes mellitus with diabetic peripheral angiopathy with gangrene (14) Fracture of femoral neck, left Assessment/Plan: arm in sling maintain for 4-6 weeks PT as per ortho recs Code(s): S72.002A - FRACTURE OF UNSP PART OF NECK OF LEFT FEMUR, INIT Qualifiers: Encounter type: initial encounter Fracture type: closed Qualified Code(s): S72.002A - Fracture of unspecified part of neck of left femur, initial encounter for closed fracture (15) Leukocytosis Assessment/Plan: wbc 10 UA leuk 1+, wbc 59, nit neg asymtomatic, afebrile monitor off abx Code(s): D72.829 - ELEVATED WHITE BLOOD CELL COUNT, UNSPECIFIED Qualifiers: Leukocytosis type: other Qualified Code(s): D72.828 - Other elevated white blood cell count (16) Chronic ulcer of leg Assessment/Plan: chronic diabeteic ulcers to [facility] followed by Dr Carson and Dr Velez Code(s): L97.909 - NON-PRS CHRONIC ULC UNSP PRT OF UNSP LOW LEG W UNSP SEVERITY (17) COVID-19 ruled out Assessment/Plan: negative PCR Code(s): Z03.818 - ENCNTR FOR OBS FOR SUSP EXPSR TO OTH BIOLG AGENTS RULED OUT Visit type - Emergency Visit Emergency Visit: Yes ED Registration Date: 04/30/20 Care time: The patient presented to the Emergency Department on the above date and was hospitalized for further evaluation of their emergent condition. - New Patient This patient is new to me today: No - Critical Care Critical Care patient: No - Discharge Referral Referred to [facility] No
[2020-05-03] MEDS: morphine SO4 SUSTAINED ACTING 30 MG TABLET.SA PO SCH ×2 (09:21→21:23)
[2020-05-03] MEDS: FUROSEMIDE 40 MG TABLET (FP) PO SCH (09:22)
[2020-05-03] MEDS: PREGABALIN 50 MG CAPSULE PO SCH (09:22)
[2020-05-03 09:37] LABS: BASO % 1.2 % (0-2.0); EOS % 1.8 % (0-4.5); HEMATOCRIT 27.7 % (35.4-49); HEMOGLOBIN 8.7 GM/dL (11.7-16.9); LYMPH % 5.3 % (8-40); MCH 29.7 pg (25.7-33.7); MCHC 31.4 g/dl (32.0-35.9); MEAN CELL VOLUME 94.5 fl (80-96); MEAN PLT VOLUME 9.8 fl (7.5-11.1); NEUT % 80.7 % (42.8-82.8); PLATELET COUNT 136 K/MM3 (134-434); RBC 2.93 M/mm3 (4.00-5.60); RDW 18.1 % (11.9-15.9); WHITE BLOOD COUNT 9.9 K/mm3 (4.0-10.0)
[2020-05-03 09:56] LABS: ALBUMIN 3.2 g/dl (3.4-5.0); BILIRUBIN,TOTAL 0.5 mg/dL (0.2-1); BLOOD UREA NITROGEN 66.8 mg/dL (7-18); CALCIUM 8.4 mg/dL (8.5-10.1); CREATININE 4.7 mg/dL (0.55-1.3); POTASSIUM 3.6 mmol/L (3.5-5.1); TOT PROT 5.9 g/dl (6.4-8.2)
[2020-05-03 10:49] LABS: ANISOCYTOSIS 1+; MACROCYTOSIS 0; PLATELET ESTIMATE DECREASED
[2020-05-03] MEDS ORDERED: MORPHINE SULFATE 2 MG/ML VIAL IVPUSH ONE ×2 (11:28→16:45)
--- NOTE | 2020-05-03 14:43 | PN ---
Progress Note (short form) - Note Progress Note: ORTHOPEDIC SURGERY PROGRESS NOTE Department of Orthopedic Surgery SUBJECTIVE No acute events overnight. No complaints currently. Denies chest pain, shortness of breath, or calf pain. No nausea or vomiting. Tolerating oral intake. Pain controlled. PHYSICAL EXAMINATION General: Alert, oriented, cooperative and no distress. Right Upper Extremity: Skin warm, dry, and intact; Diffuse bruising throughout extremity. Muscle mass equal and symmetric to contralateral side. No atrophy noted. No masses or effusions noted. No tenderness to palpation. Full passive and active ROM, free from pain. Joints stable with no pathologic laxity. M/R/U/MSK/AX motor intact; SILT distally; 2+ radial pulses; Cap refill brisk. Tone and reflexes normal. Left Upper Extremity: Left shoulder swelling. Superficial abrasion over the left elbow. Diffuse bruising throughout extremity. Muscle mass equal and symmetric to contralateral side. No atrophy noted. No masses noted. Tender to palpation at left proximal humerus; nontender throughout rest of extremity. Full passive and active ROM elbow, wrist and hand, free from pain. Joints stable with no pathologic laxity. Instrinsic atriphy noted and decreased ability to abduct the fingers. M/R/MSK/AX motor intact; SILT distally except in small and ring fingers which are chronically numb as per the patient; 2+ radial pulses; Cap refill brisk. Tone and reflexes normal. Right Lower Extremity: Ulcers/Eschar noted on great toe and foot. Muscle mass equal and symmetric to contralateral side. No atrophy noted. No masses or effusions noted. No tenderness to palpation. Negative log roll and negative heel strike. Able to straight leg raise. No cords or calf tenderness. No significant calf/ankle edema. Full passive and active ROM, free from pain. Joints stable with no pathologic laxity. EHL/TA/GS motor intact; decreased sensation in patchy distribution which patient states is baseline; 2+ DP pulses; Cap refill brisk. Tone and reflexes normal. Left Lower Extremity: Ulcers/Eschar noted on foot. Muscle mass equal and symmetric to contralateral side. No atrophy noted. No masses or effusions noted. No tenderness to palpation. No cords or calf tenderness. No significant calf/ankle edema. Full passive and active ROM, free from pain. Joints stable with no pathologic laxity. EHL/TA/GS motor intact; decreased sensation in patchy distribution which patient states is baseline; 2+ DP pulses; Cap refill brisk. Tone and reflexes normal. Intake & Output 05/01/20 05/02/20 05/03/20 23:59 23:59 23:59 Intake Total 1580 1100 1220 Output Total 2800 Balance -1220 1100 1220 Intake: IV 300 Normal Saline - 250 ml @ 300 3000 mls/hr IV PRN PRN Rx #:[id number] Oral 1180 1100 1220 Albumin 100 Output: Fluid Removed, 2800 Hemodialysis Other: Voiding Method Urinal Urinal Incontinent # Unmeasured Voids Void 2 2 2 Bowel Movement No No Yes # Bowel Movements 1 Weight 171 lb 174 lb 6 oz 175 lb 2 oz Weight Measurement Method Built in Bedscale Built in Bedscale Active Medications Generic Name Dose Route Start Last Admin Trade Name Freq PRN Reason Stop Dose Admin Acetaminophen 650 mg 05/01/20 17:30 05/01/20 17:41 Tylenol - PO 650 mg Q6H PRN Administration FEVER Acetaminophen 650 mg 05/01/20 17:30 05/03/20 05:35 Tylenol - PO 650 mg Q6H PRN Administration PAIN SCALE 1-3 Docusate Sodium 100 mg 04/30/20 18:30 05/03/20 06:03 Colace - PO Not Given Q12H [facility] Furosemide 80 mg 05/01/20 10:00 05/03/20 09:22 Lasix - PO 80 mg DAILY [facility] Administration Heparin Sodium (Porcine) 5,000 unit 04/30/20 22:00 05/03/20 14:14 Heparin - SQ 5,000 unit TID [facility] Administration Insulin Aspart 1 vial 04/30/20 22:00 05/03/20 14:02 Novolog Vial Sliding Scale - SQ Not Given [facility] Protocol Isosorbide Mononitrate 30 mg 04/30/20 22:00 05/02/20 21:07 Imdur - PO 30 mg HS [facility] Administration Melatonin 10 mg 05/02/20 23:28 05/02/20 23:37 Melatonin PO 10 mg HS [facility] Administration Morphine Sulfate 30 mg 04/30/20 22:00 05/03/20 09:21 Ms Contin - PO 30 mg BID [facility] Administration Oxycodone HCl 20 mg 05/02/20 11:05 05/03/20 14:13 Roxicodone - PO 20 mg Q4H PRN Administration PAIN LEVEL 7 - 10 Pregabalin 50 mg 05/01/20 10:00 05/03/20 09:22 Lyrica - PO 50 mg DAILY [facility] Administration Vital Signs (last) Temp Pulse Resp BP Pulse Ox 97.8 F 63 17 108/50 L 96 05/03/20 09:36 05/03/20 05:56 05/03/20 09:36 05/03/20 09:36 05/03/20 09:00 Laboratory (coagulation) PT with INR 12.30 SEC (9.7-13.0) 04/30/20 12:05 Laboratory 05/03/20 09:00 05/03/20 09:00 ASSESSMENT AND PLAN Joao Scott is a 70 year old male with (1) a left sided proximal humerus fracture, and (2) nondisplaced inferior pubic ramus fracture. 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 Due to the patients significant medical history the patient is at increased risk for infection and nonunion with surgical intervention. The patient agreed to proceed with nonoperative treatment. 1. Shoulder sling for 4 to 6 weeks after the injury. 2. Physical therapy: AROM exercises of the elbow, wrist, and hand should begin immediately. May begin PROM exercises of the shoulder and Codman pendulum exercises as soon as pain allows, typically within two weeks of the injury. There should be no forced abduction-external rotation. Isometric exercises to the shoulder girdle may begin at 4 weeks. AROM and AAROM exercises will be started at 6 weeks, with strengthening exercises starting 3 months after the injury according to radiographic and clinical healing. 3. Pain control; NWB LUE; WBAT LLE 4. DVT prophylaxis 5. Podiatry/Vascular follow up for foot ulcers All questions were answered. Thank you for involving our team in the care of this patient. Please have patient follow up in our office in 1 week for new radiographs. [phone].
[2020-05-03] MEDS: MELATONIN 5 MG TABLETS PO SCH (21:23)
[2020-05-03] MEDS: ISOSORBIDE MONONITRATE 30 MG TAB.SR.24H (FP) PO SCH (21:23)
[2020-05-04] MEDS: oxyCODONE HCL 5 MG TABLET PO PRN ×5 (03:16→20:05)
[2020-05-04] MEDS: HEPARIN NA (PORCINE) 5,000 UNITS/ML 1ML VIAL SQ SCH ×3 (06:22→22:38)
[2020-05-04] MEDS: DOCUSATE SODIUM 100 MG CAPSULE (FP) PO SCH ×2 (06:22→17:31)
[2020-05-04] MEDS: INSULIN SLIDING SCALE (NOVOLOG) 1 VIAL SQ SCH ×4 (06:25→22:37)
--- NOTE | 2020-05-04 08:11 | PN ---
Progress Note (short form) - Note Progress Note: Vascular Surgery Pt well known to vascular surgery service. Seen last week before dc. Pt with gangrene of toes bilateral feet. Pt was DC last week to followup for workup and then angiogram. Pt has extensive medicaL history and we wanted pt to recover from insult that caused him to be admitted for two weeks. Now comes in with fall with fractures. The gangrene of toes is dry and chronic. Will need angiogram when stable. Pt has had gangrene for over 3-4 months. Can do as outpt as well. Isiah Carson DO
--- NOTE | 2020-05-04 08:49 | PN ---
Progress Note, Physician History of Present Illness: 70M PMH A-fib, HFrEF (EF 30-35%, Global LV Hypokinesis), CAD (S/P CABG), Ischemic Cardiomyopathy s/p PPM, 1st degree AV Block, CVA, COPD (on 4L Home O2), ESRD on HD (Makes minimal urine, on HD MWF), IDDM BIBA to [facility] after sustaining groundlevel fall at home in kitchen. States that he lost balance and fell backward. Hit his head on tiled floor. No blood loss. No LOC. Had pain on his Left arm and Left hip and could not get off of floor. Denies prodromal sensation, lightheadedness, CP, palpitations. Had HD on 04/29/20 w/o issues. Had recent discharge on 04/28/20 after admission for CHFe and cellulitis. - Current Medication List Current Medications: Active Medications Acetaminophen (Tylenol -) 650 mg PO Q6H PRN PRN Reason: FEVER Last Admin: 05/03/20 19:54 Dose: 650 mg Documented by: Acetaminophen (Tylenol -) 650 mg PO Q6H PRN PRN Reason: PAIN SCALE 1-3 Last Admin: 05/03/20 05:35 Dose: 650 mg Documented by: Docusate Sodium (Colace -) 100 mg PO Q12H [facility] Last Admin: 05/04/20 06:22 Dose: 100 mg Documented by: Furosemide (Lasix -) 80 mg PO DAILY [facility] Last Admin: 05/03/20 09:22 Dose: 80 mg Documented by: Heparin Sodium (Porcine) (Heparin -) 5,000 unit SQ TID [facility] Last Admin: 05/04/20 06:22 Dose: 5,000 unit Documented by: Insulin Aspart (Novolog Vial Sliding Scale -) 1 vial SQ [facility]; Protocol Last Admin: 05/04/20 06:25 Dose: Not Given Documented by: Isosorbide Mononitrate (Imdur -) 30 mg PO [facility] Last Admin: 05/03/20 21:23 Dose: 30 mg Documented by: Melatonin (Melatonin) 10 mg PO [facility] Last Admin: 05/03/20 21:23 Dose: 10 mg Documented by: Morphine Sulfate (Ms Contin -) 30 mg PO BID [facility] Last Admin: 05/03/20 21:23 Dose: 30 mg Documented by: Oxycodone HCl (Roxicodone -) 20 mg PO Q4H PRN PRN Reason: PAIN LEVEL 7 - 10 Last Admin: 05/04/20 07:31 Dose: 20 mg Documented by: Pregabalin (Lyrica -) 50 mg PO TID [facility] - Objective Vital Signs: Vital Signs Temperature 98.5 F 05/04/20 06:31 Pulse Rate 68 05/04/20 06:31 Respiratory Rate 18 05/04/20 06:31 Blood Pressure 108/70 05/04/20 06:31 O2 Sat by Pulse Oximetry (%) 96 05/03/20 20:39 Labs: CBC, BMP 05/03/20 09:00 05/03/20 09:00 INR, PTT INR 1.04 (0.83-1.09) 04/30/20 12:05 Problem List - Problems (1) ESRD on hemodialysis Assessment/Plan: renal following HD [facility] Code(s): N18.6 - END STAGE RENAL DISEASE; Z99.2 - DEPENDENCE ON RENAL DIALYSIS (2) Prophylactic measure Assessment/Plan: FEN Fluids: adequate PO intake Electrolytes: monitor & replete as needed Nutrition: renal/DM diet DVT moderate risk sq heparin Dispo Maintain as inpatient full code discharge planning to SNF/rehab-spoke with and in agreeance Code(s): Z29.9 - ENCOUNTER FOR PROPHYLACTIC MEASURES, UNSPECIFIED (3) Ischemic cardiomyopathy Code(s): I25.5 - ISCHEMIC CARDIOMYOPATHY (4) Pacemaker Assessment/Plan: PPM in place AV dual paced Code(s): Z95.0 - PRESENCE OF CARDIAC PACEMAKER (5) AV block, 1st degree Assessment/Plan: PPM in place Code(s): I44.0 - ATRIOVENTRICULAR BLOCK, FIRST DEGREE (6) CVA (cerebral vascular accident) Assessment/Plan: in past PT Code(s): I63.9 - CEREBRAL INFARCTION, UNSPECIFIED (7) On home oxygen therapy Assessment/Plan: maintain SPO2 >88% Code(s): Z99.81 - DEPENDENCE ON SUPPLEMENTAL OXYGEN (8) Fracture of superior pubic ramus Assessment/Plan: ortho following WBAT LLE will need SNF/rehab after DC Code(s): S32.519A - FRACTURE OF SUPERIOR RIM OF UNSP PUBIS, INIT FOR CLOS FX (9) Acute on chronic systolic and diastolic heart failure, NYHA class 2 Code(s): I50.43 - ACUTE ON CHRONIC COMBINED SYSTOLIC AND DIASTOLIC HRT FAIL (10) Atrial fibrillation Assessment/Plan: AV paced Code(s): I48.91 - UNSPECIFIED ATRIAL FIBRILLATION (11) CAD (coronary artery disease) Assessment/Plan: c/w imdur Code(s): I25.10 - ATHSCL HEART DISEASE OF [place] CORONARY ARTERY W/O ANG PCTRS Qualifiers: [place] vs. 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 insulin use: with fdc use Diabetes mellitus complication status: with circulatory complication Diabetes mellitus complication detail: with peripheral angiopathy with gangrene Qualified Code(s): E11.52 - Type 2 diabetes mellitus with diabetic peripheral angiopathy with gangrene (14) Leukocytosis Assessment/Plan: wbc 9.5 UA leuk 1+, wbc 59, nit neg asymtomatic, afebrile monitor off abx Code(s): D72.829 - ELEVATED WHITE BLOOD CELL COUNT, UNSPECIFIED Qualifiers: Leukocytosis type: other Qualified Code(s): D72.828 - Other elevated white blood cell count (15) Chronic ulcer of leg Assessment/Plan: chronic diabetic ulcers to [facility] followed by Dr Carson and Dr Velez Code(s): L97.909 - NON-PRS CHRONIC ULC UNSP PRT OF UNSP LOW LEG W UNSP SEVERITY (16) COVID-19 ruled out Assessment/Plan: negative PCR will need second PCR to go to rehab-will send Code(s): Z03.818 - ENCNTR FOR OBS FOR SUSP EXPSR TO OT BIOLG AGENTS RULED OUT (17) Right humeral fracture Assessment/Plan: arm in sling maintain for 4-6 weeks PT as per ortho recs can try lidoderm patches Code(s): S42.301A - UNSP FRACTURE OF SHAFT OF HUMERUS, RIGHT ARM, INIT (18) Chronic diastolic CHF (congestive heart failure), NYHA class 2 Assessment/Plan: on HD c/w lasix on off HD days daily weights strict I/Os Code(s): I50.32 - CHRONIC DIASTOLIC (CONGESTIVE) HEART FAILURE Visit type - Emergency Visit Emergency Visit: Yes ED Registration Date: 04/30/20 Care time: The patient presented to the Emergency Department on the above date and was hospitalized for further evaluation of their emergent condition. - New Patient This patient is new to me today: No - Critical Care Critical Care patient: No - Discharge Referral Referred to [facility] No
[2020-05-04] MEDS: morphine SO4 SUSTAINED ACTING 30 MG TABLET.SA PO SCH ×2 (10:30→22:37)
[2020-05-04] MEDS: ACETAMINOPHEN 325 MG TABLET (FP) PO PRN (10:31)
[2020-05-04 10:39] LABS: BASO % 0.5 % (0-2.0); EOS % 0.1 % (0-4.5); HEMATOCRIT 22.2 % (35.4-49); HEMOGLOBIN 7.4 GM/dL (11.7-16.9); LYMPH % 8.6 % (8-40); MCH 29.2 pg (25.7-33.7); MCHC 33.1 g/dl (32.0-35.9); MEAN CELL VOLUME 88.1 fl (80-96); MEAN PLT VOLUME 7.1 fl (7.5-11.1); MONO % 3.4 % (3.8-10.2); NEUT % 87.4 % (42.8-82.8); PLATELET COUNT 251 K/MM3 (134-434); RBC 2.52 M/mm3 (4.00-5.60); RDW 15.8 % (11.9-15.9); WHITE BLOOD COUNT 9.5 K/mm3 (4.0-10.0)
[2020-05-04 11:04] LABS: ALBUMIN 2.4 g/dl (3.4-5.0); MAGNESIUM 1.4 mg/dL (1.8-2.4); POTASSIUM 3.7 mmol/L (3.5-5.1)
[2020-05-04 11:06] LABS: BILIRUBIN,TOTAL 0.3 mg/dL (0.2-1); CREATININE 0.9 mg/dL (0.55-1.3); TOT PROT 7.3 g/dl (6.4-8.2)
[2020-05-04 11:20] LABS: BLOOD UREA NITROGEN 19.9 mg/dL (7-18)
[2020-05-04] MEDS: FUROSEMIDE 40 MG TABLET (FP) PO SCH (11:28)
[2020-05-04 11:31] LABS: CALCIUM 6.9 mg/dL (8.5-10.1)
[2020-05-04] MEDS ORDERED: PREGABALIN 50 MG CAPSULE PO SCH (14:00)
--- NOTE | 2020-05-04 14:25 | PN ---
Progress Note (short form) - Note Progress Note: ORTHOPEDIC SURGERY PROGRESS NOTE Department of Orthopedic Surgery SUBJECTIVE No acute events overnight. No complaints currently. Denies chest pain, shortness of breath, or calf pain. No nausea or vomiting. Tolerating oral intake. Pain controlled. PHYSICAL EXAMINATION General: Alert, oriented, cooperative and no distress. Right Upper Extremity: Skin warm, dry, and intact; Diffuse bruising throughout extremity. Muscle mass equal and symmetric to contralateral side. No atrophy noted. No masses or effusions noted. No tenderness to palpation. Full passive and active ROM, free from pain. Joints stable with no pathologic laxity. M/R/U/MSK/AX motor intact; SILT distally; 2+ radial pulses; Cap refill brisk. Tone and reflexes normal. Left Upper Extremity: Left shoulder swelling. Superficial abrasion over the left elbow. Diffuse bruising throughout extremity. Muscle mass equal and symmetric to contralateral side. No atrophy noted. No masses noted. Tender to palpation at left proximal humerus; nontender throughout rest of extremity. Full passive and active ROM elbow, wrist and hand, free from pain. Joints stable with no pathologic laxity. Instrinsic atriphy noted and decreased ability to abduct the fingers. M/R/MSK/AX motor intact; SILT distally except in small and ring fingers which are chronically numb as per the patient; 2+ radial pulses; Cap refill brisk. Tone and reflexes normal. Right Lower Extremity: Ulcers/Eschar noted on great toe and foot. Muscle mass equal and symmetric to contralateral side. No atrophy noted. No masses or effusions noted. No tenderness to palpation. Negative log roll and negative heel strike. Able to straight leg raise. No cords or calf tenderness. No significant calf/ankle edema. Full passive and active ROM, free from pain. Joints stable with no pathologic laxity. EHL/TA/GS motor intact; decreased sensation in patchy distribution which patient states is baseline; 2+ DP pulses; Cap refill brisk. Tone and reflexes normal. Left Lower Extremity: Ulcers/Eschar noted on foot. Muscle mass equal and symmetric to contralateral side. No atrophy noted. No masses or effusions noted. No tenderness to palpation. No cords or calf tenderness. No significant calf/ankle edema. Full passive and active ROM, free from pain. Joints stable with no pathologic laxity. EHL/TA/GS motor intact; decreased sensation in patchy distribution which patient states is baseline; 2+ DP pulses; Cap refill brisk. Tone and reflexes normal. Intake & Output 05/02/20 05/03/20 05/04/20 23:59 23:59 23:59 Intake Total 1100 1770 80 Output Total 600 Balance 1100 1170 80 Intake: Oral 1100 1770 80 Output: Urine 600 Void 600 Other: Voiding Method Urinal Incontinent # Unmeasured Voids Void 2 2 1 Bowel Movement No Yes No # Bowel Movements 1 0 Weight 174 lb 6 oz 175 lb 2 oz 179 lb 1.6 oz Weight Measurement Method Built in Bedscale Built in Bedscale Built in Bedscale Active Medications Generic Name Dose Route Start Last Admin Trade Name Freq PRN Reason Stop Dose Admin Acetaminophen 650 mg 05/01/20 17:30 05/03/20 19:54 Tylenol - PO 650 mg Q6H PRN Administration FEVER Acetaminophen 650 mg 05/01/20 17:30 05/04/20 10:31 Tylenol - PO 650 mg Q6H PRN Administration PAIN SCALE 1-3 Docusate Sodium 100 mg 04/30/20 18:30 05/04/20 06:22 Colace - PO 100 mg Q12H [facility] Administration Furosemide 80 mg 05/01/20 10:00 05/04/20 11:28 Lasix - PO 80 mg DAILY [facility] Administration Heparin Sodium (Porcine) 5,000 unit 04/30/20 22:00 05/04/20 06:22 Heparin - SQ 5,000 unit TID [facility] Administration Insulin Aspart 1 vial 04/30/20 22:00 05/04/20 11:57 Novolog Vial Sliding Scale - SQ Not Given ACHS [facility] Protocol Isosorbide Mononitrate 30 mg 04/30/20 22:00 05/03/20 21:23 Imdur - PO 30 mg HS [facility] Administration Melatonin 10 mg 05/02/20 23:28 05/03/20 21:23 Melatonin PO 10 mg HS [facility] Administration Morphine Sulfate 30 mg 04/30/20 22:00 05/04/20 10:30 Ms Contin - PO 30 mg BID [facility] Administration Oxycodone HCl 20 mg 05/02/20 11:05 05/04/20 11:29 Roxicodone - PO 20 mg Q4H PRN Administration PAIN LEVEL 7 - 10 Pregabalin 50 mg 05/05/20 10:00 Lyrica - PO DAILY [facility] Vital Signs (last) Temp Pulse Resp BP Pulse Ox 98.5 F 68 18 108/70 96 05/04/20 06:31 05/04/20 06:31 05/04/20 06:31 05/04/20 06:31 05/03/20 20:39 Laboratory (coagulation) PT with INR 12.30 SEC (9.7-13.0) 04/30/20 12:05 Laboratory 05/04/20 09:20 05/04/20 06:00 ASSESSMENT AND PLAN Joao Scott is a 70 year old male with (1) a left sided proximal humerus fr acture, and (2) nondisplaced inferior pubic ramus fracture. 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 Due to the patients significant medical history the patient is at increased risk for infection and nonunion with surgical intervention. The patient agreed to proceed with nonoperative treatment. 1. Continue with shoulder sling for 4 to 6 weeks after the injury. 2. Physical therapy: AROM exercises of the elbow, wrist, and hand should begin immediately. May begin PROM exercises of the shoulder and Codman pendulum exercises as soon as pain allows, typically within two weeks of the injury. There should be no forced abduction-external rotation. Isometric exercises to the shoulder girdle may begin at 4 weeks. AROM and AAROM exercises will be started at 6 weeks, with strengthening exercises starting 3 months after the injury according to radiographic and clinical healing. 3. Pain control; NWB LUE; WBAT LLE 4. DVT prophylaxis 5. Podiatry/Vascular follow up for foot ulcers 6. Regarding the left hip, he has a history of left hip CRPP; imaging of the hip shows the screws to be close the joint line, but not in the joint. He has no hip pain with PROM of the hip. He will need repeat imaging of the hip to closely monitor for any further settling of the femoral head. All questions were answered. Thank you for involving our team in the care of this patient. Please have patient follow up in our office in 1 week for new radiographs. [phone].
[2020-05-04] MEDS ORDERED: MORPHINE SULFATE 2 MG/ML VIAL IVPUSH ONE (15:45)
[2020-05-04] MEDS ORDERED: SODIUM CHLORIDE 250 ML IV PRN ×2 (15:47→15:48)
--- NOTE | 2020-05-04 15:47 | PN ---
Progress Note, Physician History of Present Illness: Pt seen and examined at bedside. He is awake and alert. He denies shortness of breath. - Current Medication List Current Medications: Active Medications Acetaminophen (Tylenol -) 650 mg PO Q6H PRN PRN Reason: FEVER Last Admin: 05/03/20 19:54 Dose: 650 mg Documented by: Acetaminophen (Tylenol -) 650 mg PO Q6H PRN PRN Reason: PAIN SCALE 1-3 Last Admin: 05/04/20 10:31 Dose: 650 mg Documented by: Calcium Carbonate/Cholecalciferol (Os-Immanuel 500+D -) 2 tab PO DAILY [facility] Docusate Sodium (Colace -) 100 mg PO Q12H [facility] Last Admin: 05/04/20 06:22 Dose: 100 mg Documented by: Furosemide (Lasix -) 80 mg PO DAILY [facility] Last Admin: 05/04/20 11:28 Dose: 80 mg Documented by: Heparin Sodium (Porcine) (Heparin -) 5,000 unit SQ TID [facility] Last Admin: 05/04/20 15:36 Dose: 5,000 unit Documented by: Insulin Aspart (Novolog Vial Sliding Scale -) 1 vial SQ [facility]; Protocol Last Admin: 05/04/20 11:57 Dose: Not Given Documented by: Isosorbide Mononitrate (Imdur -) 30 mg PO [facility] Last Admin: 05/03/20 21:23 Dose: 30 mg Documented by: Lidocaine (Lidoderm Patch -) 1 patch TP DAILY [facility] Melatonin (Melatonin) 10 mg PO [facility] Last Admin: 05/03/20 21:23 Dose: 10 mg Documented by: Miscellaneous (Lidoderm Patch Removal) 1 each MC DAILY@2200 [facility] Morphine Sulfate (Ms Contin -) 30 mg PO BID [facility] Last Admin: 05/04/20 10:30 Dose: 30 mg Documented by: Oxycodone HCl (Roxicodone -) 20 mg PO Q4H PRN PRN Reason: PAIN LEVEL 7 - 10 Last Admin: 05/04/20 15:35 Dose: 20 mg Documented by: Pregabalin (Lyrica -) 50 mg PO DAILY [facility] - Objective Vital Signs: Vital Signs Temperature 98.5 F 05/04/20 06:31 Pulse Rate 61 05/04/20 14:04 Respiratory Rate 16 05/04/20 14:04 Blood Pressure 135/56 L 05/04/20 14:04 O2 Sat by Pulse Oximetry (%) 96 05/04/20 09:00 Constitutional: Yes: Calm Eyes: Yes: Conjunctiva Clear HENT: Yes: Atraumatic Cardiovascular: Yes: S1, S2 Respiratory: Yes: CTA Bilaterally Gastrointestinal: Yes: Soft Genitourinary: Yes: WNL Musculoskeletal: Yes: Other (hip pain) Neurological: Yes: Oriented Psychiatric: Yes: Oriented Labs: CBC, BMP 05/04/20 09:20 05/04/20 06:00 INR, PTT INR 1.04 (0.83-1.09) 04/30/20 12:05 Assessment/Plan Current Medications Generic Name Dose Route Start Last Admin Trade Name Freq PRN Reason Stop Dose Admin Acetaminophen 650 mg 05/01/20 17:30 05/03/20 19:54 Tylenol - PO 650 mg Q6H PRN Administration FEVER Acetaminophen 650 mg 05/01/20 17:30 05/04/20 10:31 Tylenol - PO 650 mg Q6H PRN Administration PAIN SCALE 1-3 Calcium Carbonate/Cholecalciferol 2 tab 05/04/20 15:45 Os-Immanuel 500+D - PO DAILY [facility] Docusate Sodium 100 mg 04/30/20 18:30 05/04/20 06:22 Colace - PO 100 mg Q12H [facility] Administration Furosemide 80 mg 05/01/20 10:00 05/04/20 11:28 Lasix - PO 80 mg DAILY [facility] Administration Heparin Sodium (Porcine) 5,000 unit 04/30/20 22:00 05/04/20 15:36 Heparin - SQ 5,000 unit TID [facility] Administration Insulin Aspart 1 vial 04/30/20 22:00 05/04/20 11:57 Novolog Vial Sliding Scale - SQ Not Given ACHS [facility] Protocol Isosorbide Mononitrate 30 mg 04/30/20 22:00 05/03/20 21:23 Imdur - PO 30 mg HS [facility] Administration Lidocaine 1 patch 05/04/20 15:45 Lidoderm Patch - TP DAILY [facility] Melatonin 10 mg 05/02/20 23:28 05/03/20 21:23 Melatonin PO 10 mg HS [facility] Administration Miscellaneous 1 each 05/04/20 22:00 Lidoderm Patch Removal MC DAILY@2200 [facility] Morphine Sulfate 30 mg 04/30/20 22:00 05/04/20 10:30 Ms Contin - PO 30 mg BID [facility] Administration Morphine Sulfate 2 mg 05/04/20 15:45 Morphine Injection - IVPUSH 05/04/20 15:46 ONCE ONE Oxycodone HCl 20 mg 05/02/20 11:05 05/04/20 15:35 Roxicodone - PO 20 mg Q4H PRN Administration PAIN LEVEL 7 - 10 Pregabalin 50 mg 05/05/20 10:00 Lyrica - PO DAILY [facility] Impression 1. ESRD 2. s/p fall 3. copd 4. chf 5. positive anti-histone ab 6. fluid overload 7. cva 8. anemia Plan - will arrange for HD tomorrow - ortho input appreciated - pt will need vascular follow up as well - renal diet - fluid restriction with diet
[2020-05-04] MEDS: LIDOCAINE 5% TOPICAL PATCH TP SCH (17:05)
[2020-05-04] MEDS: CALCIUM 500MG/VIT-D 200 UNITS COMBO TABLET (FP) PO SCH (17:06)
[2020-05-04] MEDS: ISOSORBIDE MONONITRATE 30 MG TAB.SR.24H (FP) PO SCH (22:37)
[2020-05-04] MEDS: MELATONIN 5 MG TABLETS PO SCH (22:37)
[2020-05-04] MEDS: LIDOCAINE PATCH REMOVAL MC SCH (22:37)
[2020-05-05] MEDS: oxyCODONE HCL 5 MG TABLET PO PRN ×4 (00:27→20:12)
[2020-05-05] MEDS: ACETAMINOPHEN 325 MG TABLET (FP) PO PRN ×2 (02:45→18:15)
[2020-05-05] MEDS: HEPARIN NA (PORCINE) 5,000 UNITS/ML 1ML VIAL SQ SCH ×3 (06:40→22:22)
[2020-05-05] MEDS: DOCUSATE SODIUM 100 MG CAPSULE (FP) PO SCH ×2 (06:41→17:40)
[2020-05-05] MEDS: INSULIN SLIDING SCALE (NOVOLOG) 1 VIAL SQ SCH ×4 (06:47→22:32)
[2020-05-05] MEDS ORDERED: EPOETIN ALFA-EPBX 10,000 UNIT/ML VIAL IVPUSH ONE (07:15)
[2020-05-05 08:24] LABS: BASO % 0.9 % (0-2.0); EOS % 1.9 % (0-4.5); HEMATOCRIT 24.9 % (35.4-49); HEMOGLOBIN 7.9 GM/dL (11.7-16.9); MCH 30.1 pg (25.7-33.7); MCHC 31.7 g/dl (32.0-35.9); MEAN CELL VOLUME 94.7 fl (80-96); MEAN PLT VOLUME 9.7 fl (7.5-11.1); MONO % 11.7 % (3.8-10.2); NEUT % 79.5 % (42.8-82.8); PLATELET COUNT 148 K/MM3 (134-434); RBC 2.63 M/mm3 (4.00-5.60); RDW 17.7 % (11.9-15.9); WHITE BLOOD COUNT 8.8 K/mm3 (4.0-10.0)
[2020-05-05 08:40] LABS: BILIRUBIN,TOTAL 0.5 mg/dL (0.2-1); CALCIUM 8.5 mg/dL (8.5-10.1); CREATININE 4.7 mg/dL (0.55-1.3); MAGNESIUM 2.1 mg/dL (1.8-2.4); POTASSIUM 3.8 mmol/L (3.5-5.1); TOT PROT 5.8 g/dl (6.4-8.2)
[2020-05-05 08:41] LABS: BLOOD UREA NITROGEN 98.4 mg/dL (7-18)
[2020-05-05] MEDS: FUROSEMIDE 40 MG TABLET (FP) PO SCH (11:52)
[2020-05-05] MEDS: LIDOCAINE 5% TOPICAL PATCH TP SCH (11:52)
[2020-05-05] MEDS: morphine SO4 SUSTAINED ACTING 30 MG TABLET.SA PO SCH ×2 (11:53→22:22)
[2020-05-05] MEDS: PREGABALIN 50 MG CAPSULE PO SCH (11:53)
[2020-05-05] MEDS: CALCIUM 500MG/VIT-D 200 UNITS COMBO TABLET (FP) PO SCH (11:54)
--- NOTE | 2020-05-05 16:44 | PN ---
Physical Exam: SUBJECTIVE: Patient seen and examined, c/o of pain of left leg. OBJECTIVE: Patient is a 70 year old male with a significant past medical history of A-fib, HFrEF (EF 30-35%, Global LV Hypokinesis), CAD (S/P CABG), ischemic cardiomyopathy s/p PPM, 1st degree AV Block, CVA, COPD (on 4L Home O2), ESRD on HD (Makes minimal urine, on HD MWF), IDDM. Patient admitted on 04/30/2020 after sustaining ground level fall at home. States that he lost balance and fell backward. Hit his head on tiled floor. No blood loss. No LOC. Had pain on his Left arm and Left hip and could not get off of floor. Denies prodromal sensation, lightheadedness, CP, palpitations. Had recent discharge on 04/28/20 after admission for CHF and cellulitis. patient sustained s/p fall: a left sided proximal humerus fracture, and nondisplaced inferior pubic ramus fracture. Vital Signs Period Temp Pulse Resp BP Sys/Chandra Pulse Ox Last 24 Hr 98.0 F-99.1 F 60-95 14-19 93-138/52-72 95-96 GENERAL: The patient is awake, alert, and fully oriented, in no acute distress. HEAD: Normal with no signs of trauma. EYES: PERRL, extraocular movements intact, sclera anicteric, conjunctiva clear. No ptosis. ENT: Ears normal, nares patent, oropharynx clear without exudates, moist mucous membranes. NECK: Trachea midline, full range of motion, supple. LUNGS: Breath sounds equal, clear to auscultation bilaterally HEART: Regular rate and rhythm ABDOMEN: Soft, nontender, nondistended, normoactive bowel sounds EXTREMITIES: a left sided proximal humerus fracture NEUROLOGICAL: Normal speech, gait not observed. Laboratory Results - last 24 hr 05/01/20 05/04/20 05/05/20 10:00 22:36 06:00 WBC RBC Hgb Hct MCV MCH MCHC RDW Plt Count MPV Absolute Neuts (auto) Neutrophils % Lymphocytes % Monocytes % Eosinophils % Basophils % Nucleated RBC % Sodium 132 L Potassium 3.8 Chloride 93 L Carbon Dioxide 28 Anion Gap 11 BUN 98.4 H Creatinine 4.7 H Est GFR (CKD-EPI)AfAm 13.36 Est GFR (CKD-EPI)NonAf 11.53 POC Glucometer 116 Random Glucose 132 H Calcium 8.5 Magnesium 2.1 Total Bilirubin 0.5 AST 11 L ALT 14 Alkaline Phosphatase 83 Total Protein 5.8 L Albumin 3.0 L Hep Bs Antigen Negative 05/05/20 05/05/20 05/05/20 06:44 06:50 16:17 WBC 8.8 RBC 2.63 L Hgb 7.9 L Hct 24.9 L MCV 94.7 D MCH 30.1 MCHC 31.7 L RDW 17.7 H Plt Count 148 D MPV 9.7 D Absolute Neuts (auto) 7.0 Neutrophils % 79.5 Lymphocytes % 6.0 L D Monocytes % 11.7 H D Eosinophils % 1.9 D Basophils % 0.9 Nucleated RBC % 0 Sodium Potassium Chloride Carbon Dioxide Anion Gap BUN Creatinine Est GFR (CKD-EPI)AfAm Est GFR (CKD-EPI)NonAf POC Glucometer 135 160 Random Glucose Calcium Magnesium Total Bilirubin AST ALT Alkaline Phosphatase Total Protein Albumin Hep Bs Antigen Active Medications Generic Name Dose Route Start Last Admin Trade Name Freq PRN Reason Stop Dose Admin Acetaminophen 650 mg 05/01/20 17:30 05/05/20 02:45 Tylenol - PO 650 mg Q6H PRN Administration FEVER Acetaminophen 650 mg 05/01/20 17:30 05/04/20 10:31 Tylenol - PO 650 mg Q6H PRN Administration PAIN SCALE 1-3 Calcium Carbonate/Cholecalciferol 2 tab 05/04/20 15:45 05/05/20 11:54 Os-Immanuel 500+D - PO 2 tab DAILY [facility] Administration Docusate Sodium 100 mg 04/30/20 18:30 05/05/20 06:41 Colace - PO Not Given Q12H [facility] Furosemide 80 mg 05/01/20 10:00 05/05/20 11:52 Lasix - PO Not Given DAILY [facility] Heparin Sodium (Porcine) 5,000 unit 04/30/20 22:00 05/05/20 16:05 Heparin - SQ 5,000 unit TID [facility] Administration Insulin Aspart 1 vial 04/30/20 22:00 05/05/20 11:54 Novolog Vial Sliding Scale - SQ Not Given ACHS [facility] Protocol Isosorbide Mononitrate 30 mg 04/30/20 22:00 05/04/20 22:37 Imdur - PO 30 mg HS [facility] Administration Lidocaine 1 patch 05/04/20 15:45 05/05/20 11:52 Lidoderm Patch - TP 1 patch DAILY [facility] Administration Melatonin 10 mg 05/02/20 23:28 05/04/20 22:37 Melatonin PO 10 mg HS [facility] Administration Miscellaneous 1 each 05/04/20 22:00 05/04/20 22:37 Lidoderm Patch Removal MC 1 each DAILY@2200 [facility] Administration Morphine Sulfate 30 mg 04/30/20 22:00 05/05/20 11:53 Ms Contin - PO 30 mg BID [facility] Administration Oxycodone HCl 20 mg 05/02/20 11:05 05/05/20 16:04 Roxicodone - PO 20 mg Q4H PRN Administration PAIN LEVEL 7 - 10 Pregabalin 50 mg 05/05/20 10:00 05/05/20 11:53 Lyrica - PO 50 mg DAILY [facility] Administration ASSESSMENT/PLAN: Problem List - Problems (1) Right humeral fracture Assessment/Plan: ortho following will need SNF/rehab after DC Code(s): S42.301A - UNSP FRACTURE OF SHAFT OF HUMERUS, RIGHT ARM, INIT (2) Fracture of superior pubic ramus Assessment/Plan: ortho following WBAT LLE will need SNF/rehab after DC Code(s): S32.519A - FRACTURE OF SUPERIOR RIM OF UNSP PUBIS, INIT FOR CLOS FX (3) ESRD (end stage renal disease) Code(s): N18.6 - END STAGE RENAL DISEASE (4) AV block, 1st degree Assessment/Plan: PPM in place Code(s): I44.0 - ATRIOVENTRICULAR BLOCK, FIRST DEGREE (5) COVID-19 ruled out Code(s): Z03.818 - ENCNTR FOR OBS FOR SUSP EXPSR TO OTH BIOLG AGENTS RULED OUT (6) CVA (cerebral vascular accident) Assessment/Plan: history of CVA. PT ordered. Code(s): I63.9 - CEREBRAL INFARCTION, UNSPECIFIED (7) Chronic diastolic CHF (congestive heart failure), NYHA class 2 Assessment/Plan: on HD c/w lasix on off HD days daily weights strict I/Os Code(s): I50.32 - CHRONIC DIASTOLIC (CONGESTIVE) HEART FAILURE (8) Chronic ulcer of leg Assessment/Plan: chronic diabetic ulcers to [facility] followed by Dr Carson and Dr Velez Code(s): L97.909 - NON-PRS CHRONIC ULC UNSP PRT OF UNSP LOW LEG W UNSP SEVERITY (9) ESRD on hemodialysis Assessment/Plan: chronic diabetic ulcers to [facility] followed by Dr Carson and Dr Velez Code(s): N18.6 - END STAGE RENAL DISEASE; Z99.2 - DEPENDENCE ON RENAL DIALYSIS (10) Head trauma Code(s): S09.90XA - UNSPECIFIED INJURY OF HEAD, INITIAL ENCOUNTER Qualifiers: Encounter type: initial encounter Qualified Code(s): S09.90XA - Unspecified injury of head, initial encounter (11) On home oxygen therapy Code(s): Z99.81 - DEPENDENCE ON SUPPLEMENTAL OXYGEN (12) BRANT (acute kidney injury) Code(s): N17.9 - ACUTE KIDNEY FAILURE, UNSPECIFIED (13) Atrial fibrillation Code(s): I48.91 - UNSPECIFIED ATRIAL FIBRILLATION (14) Congestive heart failure (CHF) Code(s): I50.9 - HEART FAILURE, UNSPECIFIED Qualifiers: Heart failure type: other Qualified Code(s): I50.9 - Heart failure, unspecified (15) Diabetes mellitus Code(s): E11.9 - TYPE 2 DIABETES MELLITUS WITHOUT COMPLICATIONS Qualifiers: Diabetes mellitus type: type 2 Diabetes mellitus terminal worker insulin use: with halfway use Diabetes mellitus complication status: with circulatory complication Diabetes mellitus complication detail: with peripheral angiopathy with gangrene Qualified Code(s): E11.52 - Type 2 diabetes mellitus with diabetic peripheral angiopathy with gangrene Visit type - Emergency Visit Emergency Visit: Yes ED Registration Date: 04/30/20 Care time: The patient presented to the Emergency Department on the above date and was hospitalized for further evaluation of their emergent condition. - New Patient This patient is new to me today: Yes Date on this admission: 05/05/20 - Critical Care Critical Care patient: No - Discharge Referral Referred to [facility] Med P.C.: No
[2020-05-05 18:13] LABS: PLATELET ESTIMATE NORMAL
--- NOTE | 2020-05-05 18:50 | PN ---
Progress Note, Physician History of Present Illness: Pt seen and examined at bedside. He is awake and alert. He tolerated HD. - Current Medication List Current Medications: Active Medications Acetaminophen (Tylenol -) 650 mg PO Q6H PRN PRN Reason: FEVER Last Admin: 05/05/20 18:15 Dose: 650 mg Documented by: Acetaminophen (Tylenol -) 650 mg PO Q6H PRN PRN Reason: PAIN SCALE 1-3 Last Admin: 05/04/20 10:31 Dose: 650 mg Documented by: Calcium Carbonate/Cholecalciferol (Os-Immanuel 500+D -) 2 tab PO DAILY [facility] Last Admin: 05/05/20 11:54 Dose: 2 tab Documented by: Docusate Sodium (Colace -) 100 mg PO Q12H [facility] Last Admin: 05/05/20 17:40 Dose: Not Given Documented by: Furosemide (Lasix -) 80 mg PO DAILY [facility] Last Admin: 05/05/20 11:52 Dose: Not Given Documented by: Heparin Sodium (Porcine) (Heparin -) 5,000 unit SQ TID [facility] Last Admin: 05/05/20 16:05 Dose: 5,000 unit Documented by: Insulin Aspart (Novolog Vial Sliding Scale -) 1 vial SQ [facility]; Protocol Last Admin: 05/05/20 16:53 Dose: 2 units Documented by: Isosorbide Mononitrate (Imdur -) 30 mg PO [facility] Last Admin: 05/04/20 22:37 Dose: 30 mg Documented by: Lidocaine (Lidoderm Patch -) 1 patch TP DAILY [facility] Last Admin: 05/05/20 11:52 Dose: 1 patch Documented by: Melatonin (Melatonin) 10 mg PO [facility] Last Admin: 05/04/20 22:37 Dose: 10 mg Documented by: Miscellaneous (Lidoderm Patch Removal) 1 each MC DAILY@2200 [facility] Last Admin: 05/04/20 22:37 Dose: 1 each Documented by: Morphine Sulfate (Ms Contin -) 30 mg PO BID [facility] Last Admin: 05/05/20 11:53 Dose: 30 mg Documented by: Oxycodone HCl (Roxicodone -) 20 mg PO Q4H PRN PRN Reason: PAIN LEVEL 7 - 10 Last Admin: 05/05/20 16:04 Dose: 20 mg Documented by: Pregabalin (Lyrica -) 50 mg PO DAILY [facility] Last Admin: 05/05/20 11:53 Dose: 50 mg Documented by: - Objective Vital Signs: Vital Signs Temperature 98.4 F 05/05/20 14:34 Pulse Rate 73 05/05/20 14:34 Respiratory Rate 18 05/05/20 14:34 Blood Pressure 133/69 05/05/20 14:34 O2 Sat by Pulse Oximetry (%) 95 05/05/20 09:00 Constitutional: Yes: Calm Eyes: Yes: Conjunctiva Clear HENT: Yes: Atraumatic Cardiovascular: Yes: S1, S2 Respiratory: Yes: CTA Bilaterally Gastrointestinal: Yes: Soft Genitourinary: Yes: WNL Musculoskeletal: Yes: Other (extremity pain) Edema: No Neurological: Yes: Oriented Psychiatric: Yes: Oriented Labs: CBC, BMP 05/05/20 06:50 05/05/20 06:00 INR, PTT INR 1.04 (0.83-1.09) 04/30/20 12:05 Assessment/Plan Current Medications Generic Name Dose Route Start Last Admin Trade Name Manohar PRN Reason Stop Dose Admin Acetaminophen 650 mg 05/01/20 17:30 05/05/20 18:15 Tylenol - PO 650 mg Q6H PRN Administration FEVER Acetaminophen 650 mg 05/01/20 17:30 05/04/20 10:31 Tylenol - PO 650 mg Q6H PRN Administration PAIN SCALE 1-3 Calcium Carbonate/Cholecalciferol 2 tab 05/04/20 15:45 05/05/20 11:54 Os-Immanuel 500+D - PO 2 tab DAILY [facility] Administration Docusate Sodium 100 mg 04/30/20 18:30 05/05/20 17:40 Colace - PO Not Given Q12H [facility] Furosemide 80 mg 05/01/20 10:00 05/05/20 11:52 Lasix - PO Not Given DAILY [facility] Heparin Sodium (Porcine) 5,000 unit 04/30/20 22:00 05/05/20 16:05 Heparin - SQ 5,000 unit TID [facility] Administration Insulin Aspart 1 vial 04/30/20 22:00 05/05/20 16:53 Novolog Vial Sliding Scale - SQ 2 units ACHS [facility] Administration Protocol Isosorbide Mononitrate 30 mg 04/30/20 22:00 05/04/20 22:37 Imdur - PO 30 mg HS [facility] Administration Lidocaine 1 patch 05/04/20 15:45 05/05/20 11:52 Lidoderm Patch - TP 1 patch DAILY [facility] Administration Melatonin 10 mg 05/02/20 23:28 05/04/20 22:37 Melatonin PO 10 mg HS [facility] Administration Miscellaneous 1 each 05/04/20 22:00 05/04/20 22:37 Lidoderm Patch Removal MC 1 each DAILY@2200 [facility] Administration Morphine Sulfate 30 mg 04/30/20 22:00 05/05/20 11:53 Ms Contin - PO 30 mg BID [facility] Administration Oxycodone HCl 20 mg 05/02/20 11:05 05/05/20 16:04 Roxicodone - PO 20 mg Q4H PRN Administration PAIN LEVEL 7 - 10 Pregabalin 50 mg 05/05/20 10:00 05/05/20 11:53 Lyrica - PO 50 mg DAILY [facility] Administration Impression 1. ESRD 2. s/p fall 3. copd 4. chf 5. positive anti-histone ab 6. fluid overload 7. cva 8. anemia Plan - HD today - lasix on non HD days - pain control - ortho follow up - renal diet - fluid restriction with diet
[2020-05-05] MEDS: ISOSORBIDE MONONITRATE 30 MG TAB.SR.24H (FP) PO SCH (22:22)
[2020-05-05] MEDS: MELATONIN 5 MG TABLETS PO SCH (22:22)
[2020-05-05] MEDS: LIDOCAINE PATCH REMOVAL MC SCH (22:24)
[2020-05-06] MEDS: oxyCODONE HCL 5 MG TABLET PO PRN ×6 (00:20→20:37)
[2020-05-06] MEDS: ACETAMINOPHEN 325 MG TABLET (FP) PO PRN ×4 (02:11→23:50)
[2020-05-06] MEDS: DOCUSATE SODIUM 100 MG CAPSULE (FP) PO SCH ×2 (05:35→18:03)
[2020-05-06] MEDS: HEPARIN NA (PORCINE) 5,000 UNITS/ML 1ML VIAL SQ SCH ×2 (06:17→13:02)
[2020-05-06] MEDS: INSULIN SLIDING SCALE (NOVOLOG) 1 VIAL SQ SCH ×4 (06:20→22:15)
[2020-05-06] MEDS: PREGABALIN 50 MG CAPSULE PO SCH ×2 (07:54→09:39)
[2020-05-06 09:17] LABS: BASO % 1.4 % (0-2.0); EOS % 0.8 % (0-4.5); HEMATOCRIT 26.7 % (35.4-49); HEMOGLOBIN 8.3 GM/dL (11.7-16.9); LYMPH % 5.8 % (8-40); MCH 29.5 pg (25.7-33.7); MEAN CELL VOLUME 95.2 fl (80-96); MEAN PLT VOLUME 9.5 fl (7.5-11.1); MONO % 11.1 % (3.8-10.2); NEUT % 80.9 % (42.8-82.8); PLATELET COUNT 172 K/MM3 (134-434); RDW 17.7 % (11.9-15.9); WHITE BLOOD COUNT 9.9 K/mm3 (4.0-10.0)
[2020-05-06] MEDS: LIDOCAINE 5% TOPICAL PATCH TP SCH (09:36)
[2020-05-06] MEDS: morphine SO4 SUSTAINED ACTING 30 MG TABLET.SA PO SCH ×2 (09:36→21:46)
[2020-05-06] MEDS: CALCIUM 500MG/VIT-D 200 UNITS COMBO TABLET (FP) PO SCH (09:38)
[2020-05-06] MEDS: FUROSEMIDE 40 MG TABLET (FP) PO SCH (09:39)
[2020-05-06 09:55] LABS: ALBUMIN 3.2 g/dl (3.4-5.0); CALCIUM 9.3 mg/dL (8.5-10.1); CREATININE 3.2 mg/dL (0.55-1.3); MAGNESIUM 2.1 mg/dL (1.8-2.4); POTASSIUM 4.1 mmol/L (3.5-5.1)
--- NOTE | 2020-05-06 09:56 | PN ---
Progress Note (short form) - Note Progress Note: Podiatry F/U: Seen/evaluated at bedside NAD. Pain to left shoulder and hip persistent. Orthopedics on the case. Notes improvement in his breathing. Awaiting BALA placement. Notes numbness to both feet. Currently afebrile, VSS. ZION: Pedal pulses nonpalpable, TG wnl, CFT about 4 seconds to all digits bilaterally. On the right foot, there is a necrotic patch dorsal hallux, no purulent drainage, no probing to bone, no fluctuance, mild periwound erythema to the digit, no streaking ascending cellulitis, no signs of active infection. Moderate tenderness to palpation. On the left foot, there is a second digit dorsal PIPJ necrotic patch, dry and stable, no probing to bone, no purulence, no fluctuance, no streaking ascending cellulitis, no signs of active infection. Moderate tenderness to palpation. Imp: 70 year old diabetic PVD male with right hallux, left second digit necrotic ulcers 1. IV abx per infectious disease 2. Continue local care with betadine to necrotic areas with dry sterile dressing changed daily 3. Will need local wound care when is discharged to SNF 4. Will need follow up in wound healing center once discharged to SNF 5. No acute intervention needed. Nadege Velez DPM
[2020-05-06 09:58] LABS: BILIRUBIN,TOTAL 0.6 mg/dL (0.2-1); TOT PROT 6.2 g/dl (6.4-8.2)
[2020-05-06 10:01] LABS: BLOOD UREA NITROGEN 63.6 mg/dL (7-18)
[2020-05-06 13:22] LABS: ANISOCYTOSIS 1+; MACROCYTOSIS 0; PLATELET ESTIMATE NORMAL
[2020-05-06] MEDS ORDERED: PT OWN MED DRAWER 7, Y5N ONE (15:02)
--- NOTE | 2020-05-06 15:49 | PN ---
Physical Exam: SUBJECTIVE: Patient seen and examined OBJECTIVE: Patient is a 70 year old male with a significant past medical history of A-fib, HFrEF (EF 30-35%, Global LV Hypokinesis), CAD (S/P CABG), ischemic cardiomyopathy s/p PPM, 1st degree AV Block, CVA, COPD (on 4L Home O2), ESRD on HD (Makes minimal urine, on HD MWF), IDDM. Patient admitted on 04/30/2020 after sustaining ground level fall at home. States that he lost balance and fell backward. Hit his head on tiled floor. No blood loss. No LOC. Had pain on his Left arm and Left hip and could not get off of floor. Denies prodromal sensation, lightheadedness, CP, palpitations. Had recent discharge on 04/28/20 after admission for CHF and cellulitis. patient sustained s/p fall: a left sided proximal humerus fracture, and nondisplaced inferior pubic ramus fracture. Vital Signs Period Temp Pulse Resp BP Sys/Chandra Pulse Ox Last 24 Hr 97.8 F-98.8 F 67-85 18-18 100-129/45-70 95-96 GENERAL: The patient is awake, alert, and fully oriented, in no acute distress. HEAD: Normal with no signs of trauma. EYES: PERRL, extraocular movements intact, sclera anicteric, conjunctiva clear. No ptosis. ENT: Ears normal, nares patent, oropharynx clear without exudates, moist mucous membranes. NECK: Trachea midline, full range of motion, supple. LUNGS: Breath sounds equal, clear to auscultation bilaterally HEART: Regular rate and rhythm ABDOMEN: Soft, nontender, nondistended, normoactive bowel sounds EXTREMITIES: a left sided proximal humerus fracture NEUROLOGICAL: Normal speech, gait not observed. Laboratory Results - last 24 hr 05/05/20 05/05/20 05/05/20 06:50 16:17 22:29 WBC RBC Hgb Hct MCV MCH MCHC RDW Plt Count MPV Absolute Neuts (auto) Neutrophils % Neutrophils % (Manual) 86.9 H Band Neutrophils % 0.0 Lymphocytes % Lymphocytes % (Manual) 2.0 L D Monocytes % Monocytes % (Manual) 7 Eosinophils % Eosinophils % (Manual) 0.0 D Basophils % Basophils % (Manual) 0.0 Myelocytes % (Man) 4 H D Promyelocytes % (Man) 0 Blast Cells % (Manual) 0 Nucleated RBC % Metamyelocytes 0 Hypochromia Platelet Estimate Normal Polychromasia Basophilic Stippling Anisocytosis Microcytosis Macrocytosis Sodium Potassium Chloride Carbon Dioxide Anion Gap BUN Creatinine Est GFR (CKD-EPI)AfAm Est GFR (CKD-EPI)NonAf POC Glucometer 160 156 Random Glucose Calcium Magnesium Total Bilirubin AST ALT Alkaline Phosphatase Total Protein Albumin 05/06/20 05/06/20 05/06/20 06:16 08:20 08:20 WBC 9.9 RBC 2.80 L Hgb 8.3 L Hct 26.7 L MCV 95.2 MCH 29.5 MCHC 31.0 L RDW 17.7 H Plt Count 172 MPV 9.5 Absolute Neuts (auto) 8.0 Neutrophils % 80.9 Neutrophils % (Manual) 74.3 Band Neutrophils % 0.0 Lymphocytes % 5.8 L Lymphocytes % (Manual) 6.7 L D Monocytes % 11.1 H Monocytes % (Manual) 15 H D Eosinophils % 0.8 Eosinophils % (Manual) 0.0 Basophils % 1.4 Basophils % (Manual) 0.0 Myelocytes % (Man) 3 H D Promyelocytes % (Man) 0 Blast Cells % (Manual) 0 Nucleated RBC % 0 Metamyelocytes 1 D Hypochromia 1+ Platelet Estimate Normal Polychromasia 1+ Basophilic Stippling 1+ Anisocytosis 1+ Microcytosis 1+ Macrocytosis 0 Sodium 137 Potassium 4.1 Chloride 98 Carbon Dioxide 31 Anion Gap 9 BUN 63.6 H Creatinine 3.2 H Est GFR (CKD-EPI)AfAm 21.26 Est GFR (CKD-EPI)NonAf 18.34 POC Glucometer 113 Random Glucose 136 H Calcium 9.3 Magnesium 2.1 Total Bilirubin 0.6 AST 12 L ALT 19 Alkaline Phosphatase 93 Total Protein 6.2 L Albumin 3.2 L 05/06/20 10:46 WBC RBC Hgb Hct MCV MCH MCHC RDW Plt Count MPV Absolute Neuts (auto) Neutrophils % Neutrophils % (Manual) Band Neutrophils % Lymphocytes % Lymphocytes % (Manual) Monocytes % Monocytes % (Manual) Eosinophils % Eosinophils % (Manual) Basophils % Basophils % (Manual) Myelocytes % (Man) Promyelocytes % (Man) Blast Cells % (Manual) Nucleated RBC % Metamyelocytes Hypochromia Platelet Estimate Polychromasia Basophilic Stippling Anisocytosis Microcytosis Macrocytosis Sodium Potassium Chloride Carbon Dioxide Anion Gap BUN Creatinine Est GFR (CKD-EPI)AfAm Est GFR (CKD-EPI)NonAf POC Glucometer 144 Random Glucose Calcium Magnesium Total Bilirubin AST ALT Alkaline Phosphatase Total Protein Albumin Active Medications Generic Name Dose Route Start Last Admin Trade Name Freq PRN Reason Stop Dose Admin Acetaminophen 650 mg 05/01/20 17:30 05/06/20 14:51 Tylenol - PO 650 mg Q6H PRN Administration FEVER Acetaminophen 650 mg 05/01/20 17:30 05/06/20 02:11 Tylenol - PO 650 mg Q6H PRN Administration PAIN SCALE 1-3 Calcium Carbonate/Cholecalciferol 2 tab 05/04/20 15:45 05/06/20 09:38 Os-Immanuel 500+D - PO 2 tab DAILY RADHA Administration Docusate Sodium 100 mg 04/30/20 18:30 05/06/20 05:35 Colace - PO Not Given Q12H RADHA Furosemide 80 mg 05/01/20 10:00 05/06/20 09:39 Lasix - PO 80 mg DAILY RADHA Administration Heparin Sodium (Porcine) 5,000 unit 04/30/20 22:00 05/06/20 13:02 Heparin - SQ 5,000 unit TID RADHA Administration Insulin Aspart 1 vial 04/30/20 22:00 05/06/20 10:48 Novolog Vial Sliding Scale - SQ Not Given ACHS [facility] Protocol Isosorbide Mononitrate 30 mg 04/30/20 22:00 05/05/20 22:22 Imdur - PO 30 mg HS RADHA Administration Lidocaine 1 patch 05/04/20 15:45 05/06/20 09:36 Lidoderm Patch - TP 1 patch DAILY RAD[facility] Administration Melatonin 10 mg 05/02/20 23:28 05/05/20 22:22 Melatonin PO 10 mg HS RADHA Administration Miscellaneous 1 each 05/04/20 22:00 05/05/20 22:24 Lidoderm Patch Removal MC 1 each DAILY@2200 RAD[facility] Administration Morphine Sulfate 30 mg 04/30/20 22:00 05/06/20 09:36 Ms Contin - PO 30 mg BID RADHA Administration Oxycodone HCl 20 mg 05/02/20 11:05 05/06/20 12:12 Roxicodone - PO 20 mg Q4H PRN Administration PAIN LEVEL 7 - 10 Pregabalin 50 mg 05/05/20 10:00 05/06/20 09:39 Lyrica - PO Not Given DAILY RADHA ASSESSMENT/PLAN: Problem List - Problems (1) Right humeral fracture Assessment/Plan: ortho following will need SNF/rehab after DC Code(s): S42.301A - UNSP FRACTURE OF SHAFT OF HUMERUS, RIGHT ARM, INIT (2) Fracture of superior pubic ramus Assessment/Plan: ortho following WBAT LLE will need SNF/rehab after DC Code(s): S32.519A - FRACTURE OF SUPERIOR RIM OF UNSP PUBIS, INIT FOR CLOS FX (3) ESRD (end stage renal disease) Code(s): N18.6 - END STAGE RENAL DISEASE (4) AV block, 1st degree Assessment/Plan: PPM in place Code(s): I44.0 - ATRIOVENTRICULAR BLOCK, FIRST DEGREE (5) COVID-19 ruled out Code(s): Z03.818 - ENCNTR FOR OBS FOR SUSP EXPSR TO OTH BIOLG AGENTS RULED OUT (6) CVA (cerebral vascular accident) Assessment/Plan: history of CVA. PT ordered. Code(s): I63.9 - CEREBRAL INFARCTION, UNSPECIFIED (7) Chronic diastolic CHF (congestive heart failure), NYHA class 2 Assessment/Plan: on HD c/w lasix on off HD days daily weights strict I/Os Code(s): I50.32 - CHRONIC DIASTOLIC (CONGESTIVE) HEART FAILURE (8) Chronic ulcer of leg Assessment/Plan: chronic diabetic ulcers to LE BL followed by Dr Carson and Dr Velez Code(s): L97.909 - NON-PRS CHRONIC ULC UNSP PRT OF UNSP LOW LEG W UNSP SEVERITY (9) ESRD on hemodialysis Assessment/Plan: chronic diabetic ulcers to LE BL followed by Dr Carson and Dr Velez Code(s): N18.6 - END STAGE RENAL DISEASE; Z99.2 - DEPENDENCE ON RENAL DIALYSIS (10) Head trauma Code(s): S09.90XA - UNSPECIFIED INJURY OF HEAD, INITIAL ENCOUNTER Qualifiers: Encounter type: initial encounter Qualified Code(s): S09.90XA - Unspecified injury of head, initial encounter (11) On home oxygen therapy Code(s): Z99.81 - DEPENDENCE ON SUPPLEMENTAL OXYGEN (12) Atrial fibrillation Assessment/Plan: resume warfarin Code(s): I48.91 - UNSPECIFIED ATRIAL FIBRILLATION (13) Congestive heart failure (CHF) Assessment/Plan: on lasix 80mg off dialysis days Code(s): I50.9 - HEART FAILURE, UNSPECIFIED Qualifiers: Heart failure type: other Qualified Code(s): I50.9 - Heart failure, unspecified (14) Diabetes mellitus Assessment/Plan: on novolog Code(s): E11.9 - TYPE 2 DIABETES MELLITUS WITHOUT COMPLICATIONS Qualifiers: Diabetes mellitus type: type 2 Diabetes mellitus jail insulin use: with jail use Diabetes mellitus complication status: with circulatory complication Diabetes mellitus complication detail: with peripheral angiopathy with gangrene Qualified Code(s): E11.52 - Type 2 diabetes mellitus with diabetic peripheral angiopathy with gangrene Visit type - Emergency Visit Emergency Visit: Yes ED Registration Date: 04/30/20 Care time: The patient presented to the Emergency Department on the above date and was hospitalized for further evaluation of their emergent condition. - New Patient This patient is new to me today: No - Critical Care Critical Care patient: No - Discharge Referral Referred to [facility] No
[2020-05-06] MEDS ORDERED: WARFARIN NA 5 MG TABLET PO SCH (18:00)
--- NOTE | 2020-05-06 19:30 | PN ---
Progress Note, Physician History of Present Illness: Pt seen and examined at bedside. He is awake and appears more comfortable today. He denies shortness of breath. - Current Medication List Current Medications: Active Medications Acetaminophen (Tylenol -) 650 mg PO Q6H PRN PRN Reason: FEVER Last Admin: 05/06/20 14:51 Dose: 650 mg Documented by: Acetaminophen (Tylenol -) 650 mg PO Q6H PRN PRN Reason: PAIN SCALE 1-3 Last Admin: 05/06/20 02:11 Dose: 650 mg Documented by: Calcium Carbonate/Cholecalciferol (Os-Immanuel 500+D -) 2 tab PO DAILY [facility] Last Admin: 05/06/20 09:38 Dose: 2 tab Documented by: Docusate Sodium (Colace -) 100 mg PO Q12H [facility] Last Admin: 05/06/20 18:03 Dose: Not Given Documented by: Furosemide (Lasix -) 80 mg PO DAILY [facility] Insulin Aspart (Novolog Vial Sliding Scale -) 1 vial SQ [facility]; Protocol Last Admin: 05/06/20 16:36 Dose: 2 units Documented by: Isosorbide Mononitrate (Imdur -) 30 mg PO [facility] Last Admin: 05/05/20 22:22 Dose: 30 mg Documented by: Lidocaine (Lidoderm Patch -) 1 patch TP DAILY [facility] Last Admin: 05/06/20 09:36 Dose: 1 patch Documented by: Melatonin (Melatonin) 10 mg PO [facility] Last Admin: 05/05/20 22:22 Dose: 10 mg Documented by: Miscellaneous (Lidoderm Patch Removal) 1 each MC DAILY@2200 [facility] Last Admin: 05/05/20 22:24 Dose: 1 each Documented by: Morphine Sulfate (Ms Contin -) 30 mg PO BID [facility] Last Admin: 05/06/20 09:36 Dose: 30 mg Documented by: Oxycodone HCl (Roxicodone -) 20 mg PO Q4H PRN PRN Reason: PAIN LEVEL 7 - 10 Last Admin: 05/06/20 15:53 Dose: 20 mg Documented by: Pregabalin (Lyrica -) 50 mg PO DAILY [facility] Last Admin: 05/06/20 09:39 Dose: Not Given Documented by: Warfarin Sodium (Coumadin -) 5 mg PO DAILY@1800 [facility] Last Admin: 05/06/20 17:25 Dose: 5 mg Documented by: - Objective Vital Signs: Vital Signs Temperature 97.8 F 05/06/20 14:26 Pulse Rate 79 05/06/20 14:26 Respiratory Rate 18 05/06/20 14:26 Blood Pressure 125/70 05/06/20 14:26 O2 Sat by Pulse Oximetry (%) 96 05/06/20 08:21 Constitutional: Yes: Calm Eyes: Yes: Conjunctiva Clear HENT: Yes: Atraumatic Neck: Yes: Supple Cardiovascular: Yes: S1, S2 Respiratory: Yes: CTA Bilaterally Gastrointestinal: Yes: Soft Edema: No Neurological: Yes: Oriented Psychiatric: Yes: Oriented Labs: CBC, BMP 05/06/20 08:20 05/06/20 08:20 INR, PTT INR 1.04 (0.83-1.09) 04/30/20 12:05 Assessment/Plan Current Medications Generic Name Dose Route Start Last Admin Trade Name Freq PRN Reason Stop Dose Admin Acetaminophen 650 mg 05/01/20 17:30 05/06/20 14:51 Tylenol - PO 650 mg Q6H PRN Administration FEVER Acetaminophen 650 mg 05/01/20 17:30 05/06/20 02:11 Tylenol - PO 650 mg Q6H PRN Administration PAIN SCALE 1-3 Calcium Carbonate/Cholecalciferol 2 tab 05/04/20 15:45 05/06/20 09:38 Os-Immanuel 500+D - PO 2 tab DAILY [facility] Administration Docusate Sodium 100 mg 04/30/20 18:30 05/06/20 18:03 Colace - PO Not Given Q12H RADHA Furosemide 80 mg 05/07/20 10:00 Lasix - PO DAILY [facility] Insulin Aspart 1 vial 04/30/20 22:00 05/06/20 16:36 Novolog Vial Sliding Scale - SQ 2 units ACHS RAD[facility] Administration Protocol Isosorbide Mononitrate 30 mg 04/30/20 22:00 05/05/20 22:22 Imdur - PO 30 mg HS RAD[facility] Administration Lidocaine 1 patch 05/04/20 15:45 05/06/20 09:36 Lidoderm Patch - TP 1 patch DAILY [facility] Administration Melatonin 10 mg 05/02/20 23:28 05/05/20 22:22 Melatonin PO 10 mg HS [facility] Administration Miscellaneous 1 each 05/04/20 22:00 05/05/20 22:24 Lidoderm Patch Removal MC 1 each DAILY@2200 [facility] Administration Morphine Sulfate 30 mg 04/30/20 22:00 05/06/20 09:36 Ms Contin - PO 30 mg BID RADHA Administration Oxycodone HCl 20 mg 05/02/20 11:05 05/06/20 15:53 Roxicodone - PO 20 mg Q4H PRN Administration PAIN LEVEL 7 - 10 Pregabalin 50 mg 05/05/20 10:00 05/06/20 09:39 Lyrica - PO Not Given DAILY [facility] Warfarin Sodium 5 mg 05/06/20 18:00 05/06/20 17:25 Coumadin - PO 5 mg DAILY@1800 RAD[facility] Administration Impression 1. ESRD 2. s/p fall 3. copd 4. chf 5. positive anti-histone ab 6. fluid overload 7. cva 8. anemia Plan - HD tomorrow - will likely dialyze again on Monday to get him back on schedule - pending placement - send info to [facility] for on-site HD - discussed with family - ortho follow up - renal diet - fluid restriction with diet
[2020-05-06 20:55] LABS: INR 0.96 (0.83-1.09); PROTHROMBIN TIME (PATIENT) 11.3 SEC (9.7-13.0)
[2020-05-06] MEDS: MELATONIN 5 MG TABLETS PO SCH (21:46)
[2020-05-06] MEDS: ISOSORBIDE MONONITRATE 30 MG TAB.SR.24H (FP) PO SCH (21:46)
[2020-05-06] MEDS: LIDOCAINE PATCH REMOVAL MC SCH (21:51)
[2020-05-07] MEDS: oxyCODONE HCL 5 MG TABLET PO PRN ×6 (00:37→23:55)
[2020-05-07] MEDS: INSULIN SLIDING SCALE (NOVOLOG) 1 VIAL SQ SCH ×4 (06:08→21:15)
[2020-05-07] MEDS: DOCUSATE SODIUM 100 MG CAPSULE (FP) PO SCH ×2 (06:11→17:47)
[2020-05-07] MEDS: PREGABALIN 50 MG CAPSULE PO SCH ×2 (08:18→09:57)
[2020-05-07] MEDS: ACETAMINOPHEN 325 MG TABLET (FP) PO PRN ×2 (08:22→15:43)
[2020-05-07 08:50] LABS: BASO % 0.8 % (0-2.0); EOS % 1.2 % (0-4.5); HEMOGLOBIN 7.5 GM/dL (11.7-16.9); LYMPH % 6.1 % (8-40); MCH 29.6 pg (25.7-33.7); MCHC 31.2 g/dl (32.0-35.9); MEAN CELL VOLUME 94.9 fl (80-96); MEAN PLT VOLUME 9.3 fl (7.5-11.1); MONO % 11.4 % (3.8-10.2); NEUT % 80.5 % (42.8-82.8); PLATELET COUNT 177 K/MM3 (134-434); RBC 2.53 M/mm3 (4.00-5.60); RDW 17.9 % (11.9-15.9); WHITE BLOOD COUNT 9.9 K/mm3 (4.0-10.0)
[2020-05-07 08:52] LABS: INR 1.02 (0.83-1.09)
[2020-05-07 09:26] LABS: ACTIVATED PTT 28.1 SECONDS (25.2-36.5)
[2020-05-07 09:27] LABS: BILIRUBIN,TOTAL 0.5 mg/dL (0.2-1); BLOOD UREA NITROGEN 79.1 mg/dL (7-18); CALCIUM 8.8 mg/dL (8.5-10.1); CREATININE 3.7 mg/dL (0.55-1.3); POTASSIUM 4.2 mmol/L (3.5-5.1); TOT PROT 5.8 g/dl (6.4-8.2)
[2020-05-07] MEDS: FUROSEMIDE 40 MG TABLET (FP) PO SCH (09:55)
[2020-05-07] MEDS: LIDOCAINE 5% TOPICAL PATCH TP SCH (09:56)
[2020-05-07] MEDS: CALCIUM 500MG/VIT-D 200 UNITS COMBO TABLET (FP) PO SCH (09:56)
[2020-05-07] MEDS: HEPARIN NA (PORCINE) 5,000 UNITS/ML 1ML VIAL IVPUSH PRN ×2 (10:04→21:30)
[2020-05-07] MEDS: morphine SO4 SUSTAINED ACTING 30 MG TABLET.SA PO SCH ×2 (10:10→21:13)
[2020-05-07] MEDS: HEPARIN - 25,000 UNIT in SODIUM CHLORIDE 495 ML IV SCH ×2 (10:42→23:29)
[2020-05-07] MEDS ORDERED: SODIUM CHLORIDE 250 ML IV PRN (11:18)
[2020-05-07] MEDS ORDERED: EPOETIN ALFA 10,000 UNIT/1 ML VIAL IVPUSH ONE (11:30)
[2020-05-07 11:41] LABS: ANISOCYTOSIS 1+; MACROCYTOSIS 0; PLATELET ESTIMATE NORMAL
--- NOTE | 2020-05-07 14:08 | PN ---
Physical Exam: SUBJECTIVE: Patient seen and examined OBJECTIVE: patient seen at dialysis inr subtherapeutic, on heparin gtt with coumadin bridge hep panel pending ------- Patient is a 70 year old male with a significant past medical history of A-fib, HFrEF (EF 30-35%, Global LV Hypokinesis), CAD (S/P CABG), ischemic cardiomyopathy s/p PPM, 1st degree AV Block, CVA, COPD (on 4L Home O2), ESRD on HD (Makes minimal urine, on HD MWF), IDDM. Patient admitted on 04/30/2020 after sustaining ground level fall at home. States that he lost balance and fell backward. Hit his head on tiled floor. No blood loss. No LOC. Had pain on his Left arm and Left hip and could not get off of floor. Denies prodromal sensation, lightheadedness, CP, palpitations. Had recent discharge on 04/28/20 after admission for CHF and cellulitis. patient sustained s/p fall: a left sided proximal humerus fracture, and nondisplaced inferior pubic ramus fracture. Period Temp Pulse Resp BP Sys/Chandra Pulse Ox Last 24 Hr 97.2 F-98.7 F 60-98 18-18 80-134/55-77 93-98 GENERAL: The patient is awake, alert, and fully oriented, in no acute distress. HEAD: Normal with no signs of trauma. EYES: PERRL, extraocular movements intact, sclera anicteric, conjunctiva clear. No ptosis. ENT: Ears normal, nares patent, oropharynx clear without exudates, moist mucous membranes. NECK: Trachea midline, full range of motion, supple. LUNGS: Breath sounds equal, clear to auscultation bilaterally HEART: Regular rate and rhythm ABDOMEN: Soft, nontender, nondistended, normoactive bowel sounds EXTREMITIES: a left sided proximal humerus fracture NEUROLOGICAL: Normal speech, gait not observed. Laboratory Results - last 24 hr 05/04/20 05/06/20 05/06/20 17:00 16:32 19:35 WBC RBC Hgb Hct MCV MCH MCHC RDW Plt Count MPV Absolute Neuts (auto) Neutrophils % Neutrophils % (Manual) Band Neutrophils % Lymphocytes % Lymphocytes % (Manual) Monocytes % Monocytes % (Manual) Eosinophils % Eosinophils % (Manual) Basophils % Basophils % (Manual) Myelocytes % (Man) Promyelocytes % (Man) Blast Cells % (Manual) Nucleated RBC % Metamyelocytes Hypochromia Platelet Estimate Polychromasia Poikilocytosis Anisocytosis Microcytosis Macrocytosis PT with INR 11.30 INR 0.96 PTT (Actin FS) Sodium Potassium Chloride Carbon Dioxide Anion Gap BUN Creatinine Est GFR (CKD-EPI)AfAm Est GFR (CKD-EPI)NonAf POC Glucometer 158 Random Glucose Calcium Magnesium Total Bilirubin AST ALT Alkaline Phosphatase Total Protein Albumin COVID-19 (DANIELA) Not detected 05/06/20 05/07/20 05/07/20 22:14 05:55 07:23 WBC 9.9 RBC 2.53 L Hgb 7.5 L Hct 24.0 L MCV 94.9 MCH 29.6 MCHC 31.2 L RDW 17.9 H Plt Count 177 MPV 9.3 Absolute Neuts (auto) 8.0 Neutrophils % 80.5 Neutrophils % (Manual) 75.8 Band Neutrophils % 0.0 Lymphocytes % 6.1 L Lymphocytes % (Manual) 8.1 D Monocytes % 11.4 H Monocytes % (Manual) 10 Eosinophils % 1.2 Eosinophils % (Manual) 2.0 D Basophils % 0.8 Basophils % (Manual) 0.0 Myelocytes % (Man) 0 D Promyelocytes % (Man) 0 Blast Cells % (Manual) 0 Nucleated RBC % 0 Metamyelocytes 2 D Hypochromia 1+ Platelet Estimate Normal Polychromasia 0 Poikilocytosis 0 Anisocytosis 1+ Microcytosis 1+ Macrocytosis 0 PT with INR INR PTT (Actin FS) Sodium Potassium Chloride Carbon Dioxide Anion Gap BUN Creatinine Est GFR (CKD-EPI)AfAm Est GFR (CKD-EPI)NonAf POC Glucometer 147 107 Random Glucose Calcium Magnesium Total Bilirubin AST ALT Alkaline Phosphatase Total Protein Albumin COVID-19 (DANIELA) 05/07/20 05/07/20 05/07/20 07:23 07:23 11:41 WBC RBC Hgb Hct MCV MCH MCHC RDW Plt Count MPV Absolute Neuts (auto) Neutrophils % Neutrophils % (Manual) Band Neutrophils % Lymphocytes % Lymphocytes % (Manual) Monocytes % Monocytes % (Manual) Eosinophils % Eosinophils % (Manual) Basophils % Basophils % (Manual) Myelocytes % (Man) Promyelocytes % (Man) Blast Cells % (Manual) Nucleated RBC % Metamyelocytes Hypochromia Platelet Estimate Polychromasia Poikilocytosis Anisocytosis Microcytosis Macrocytosis PT with INR 12.00 INR 1.02 PTT (Actin FS) 28.1 Sodium 134 L Potassium 4.2 Chloride 97 L Carbon Dioxide 30 Anion Gap 7 L BUN 79.1 H Creatinine 3.7 H Est GFR (CKD-EPI)AfAm 17.84 Est GFR (CKD-EPI)NonAf 15.39 POC Glucometer 128 Random Glucose 101 Calcium 8.8 Magnesium 2.0 Total Bilirubin 0.5 AST 10 L ALT 15 Alkaline Phosphatase 87 Total Protein 5.8 L Albumin 3.0 L COVID-19 (DANIELA) Active Medications Generic Name Dose Route Start Last Admin Trade Name Freq PRN Reason Stop Dose Admin Acetaminophen 650 mg 05/01/20 17:30 05/07/20 08:22 Tylenol - PO 650 mg Q6H PRN Administration FEVER Acetaminophen 650 mg 05/01/20 17:30 05/06/20 02:11 Tylenol - PO 650 mg Q6H PRN Administration PAIN SCALE 1-3 Calcium Carbonate/Cholecalciferol 2 tab 05/04/20 15:45 05/07/20 09:56 Os-Immanuel 500+D - PO 2 tab DAILY [facility] Administration Docusate Sodium 100 mg 04/30/20 18:30 05/07/20 06:11 Colace - PO Not Given Q12H RADHA Furosemide 80 mg 05/07/20 10:00 05/07/20 09:55 Lasix - PO Not Given DAILY [facility] Heparin Sodium (Porcine) 1,000 unit 05/07/20 09:01 Heparin - IVPUSH PRN PRN Heparin Heparin Sodium (Porcine) 5,000 unit 05/07/20 09:01 05/07/20 10:04 Heparin - IVPUSH 5,000 unit PRN PRN Administration Heparin Heparin Sodium (Porcine) 25, 500 mls @ 20 mls/hr 05/07/20 09:15 05/07/20 10:42 000 unit/ Sodium Chloride IV 1,150 unit/hr TITR RADHA 23 mls/hr Administration Protocol 1,000 UNIT/HR Insulin Aspart 1 vial 04/30/20 22:00 05/07/20 11:52 Novolog Vial Sliding Scale - SQ Not Given ACHS [facility] Protocol Isosorbide Mononitrate 30 mg 04/30/20 22:00 05/06/20 21:46 Imdur - PO 30 mg HS RADHA Administration Lidocaine 1 patch 05/04/20 15:45 05/07/20 09:56 Lidoderm Patch - TP 1 patch DAILY RAD[facility] Administration Melatonin 10 mg 05/02/20 23:28 05/06/20 21:46 Melatonin PO 10 mg HS RADHA Administration Miscellaneous 1 each 05/04/20 22:00 05/06/20 21:51 Lidoderm Patch Removal MC 1 each DAILY@2200 RADHA Administration Morphine Sulfate 30 mg 04/30/20 22:00 05/07/20 10:10 Ms Contin - PO Not Given BID RADHA Oxycodone HCl 20 mg 05/02/20 11:05 05/07/20 08:17 Roxicodone - PO 20 mg Q4H PRN Administration PAIN LEVEL 7 - 10 Pregabalin 50 mg 05/05/20 10:00 05/07/20 09:57 Lyrica - PO Not Given DAILY RADHA Warfarin Sodium 5 mg 05/06/20 18:00 05/06/20 17:25 Coumadin - PO 5 mg DAILY@1800 RADHA Administration ASSESSMENT/PLAN: Problem List - Problems (1) Right humeral fracture Assessment/Plan: ortho following will need SNF/rehab after DC Code(s): S42.301A - UNSP FRACTURE OF SHAFT OF HUMERUS, RIGHT ARM, INIT (2) Fracture of superior pubic ramus Assessment/Plan: ortho following WBAT LLE will need SNF/rehab after DC Code(s): S32.519A - FRACTURE OF SUPERIOR RIM OF UNSP PUBIS, INIT FOR CLOS FX (3) ESRD (end stage renal disease) Assessment/Plan: dialysis today Code(s): N18.6 - END STAGE RENAL DISEASE (4) AV block, 1st degree Assessment/Plan: PPM in place Code(s): I44.0 - ATRIOVENTRICULAR BLOCK, FIRST DEGREE (5) COVID-19 ruled out Code(s): Z03.818 - ENCNTR FOR OBS FOR SUSP EXPSR TO OTH BIOLG AGENTS RULED OUT (6) CVA (cerebral vascular accident) Assessment/Plan: history of CVA. PT ordered. Code(s): I63.9 - CEREBRAL INFARCTION, UNSPECIFIED (7) Chronic diastolic CHF (congestive heart failure), NYHA class 2 Assessment/Plan: on HD c/w lasix on off HD days daily weights strict I/Os Code(s): I50.32 - CHRONIC DIASTOLIC (CONGESTIVE) HEART FAILURE (8) Chronic ulcer of leg Assessment/Plan: chronic diabetic ulcers to LE BL followed by Dr Carson and Dr Velez Code(s): L97.909 - NON-PRS CHRONIC ULC UNSP PRT OF UNSP LOW LEG W UNSP SEVERITY (9) Head trauma Code(s): S09.90XA - UNSPECIFIED INJURY OF HEAD, INITIAL ENCOUNTER Qualifiers: Encounter type: initial encounter Qualified Code(s): S09.90XA - Unspecified injury of head, initial encounter (10) On home oxygen therapy Code(s): Z99.81 - DEPENDENCE ON SUPPLEMENTAL OXYGEN (11) Atrial fibrillation Assessment/Plan: on heparin drip with bridge to coumadin Code(s): I48.91 - UNSPECIFIED ATRIAL FIBRILLATION (12) Congestive heart failure (CHF) Assessment/Plan: on lasix 80mg off dialysis days Code(s): I50.9 - HEART FAILURE, UNSPECIFIED Qualifiers: Heart failure type: other Qualified Code(s): I50.9 - Heart failure, unspecified (13) Diabetes mellitus Assessment/Plan: on novolog Code(s): E11.9 - TYPE 2 DIABETES MELLITUS WITHOUT COMPLICATIONS Qualifiers: Diabetes mellitus type: type 2 Diabetes mellitus buttermaker helper insulin use: with buttermaker helper use Diabetes mellitus complication status: with circulatory complication Diabetes mellitus complication detail: with peripheral angiopathy with gangrene Qualified Code(s): E11.52 - Type 2 diabetes mellitus with diabetic peripheral angiopathy with gangrene (14) Subtherapeutic international normalized ratio (INR) Assessment/Plan: on heparin gtt with coumadin bridge Code(s): R79.1 - ABNORMAL COAGULATION PROFILE (15) DVT prophylaxis Assessment/Plan: heparin gtt with coumadin bridge Code(s): Z29.9 - ENCOUNTER FOR PROPHYLACTIC MEASURES, UNSPECIFIED Visit type - Emergency Visit Emergency Visit: Yes ED Registration Date: 04/30/20 Care time: The patient presented to the Emergency Department on the above date and was hospitalized for further evaluation of their emergent condition. - New Patient This patient is new to me today: No - Critical Care Critical Care patient: No - Discharge Referral Referred to [facility] No
--- NOTE | 2020-05-07 15:11 | PN ---
Progress Note, Physician History of Present Illness: Pt seen and examined at bedside. He is tolerating HD. - Current Medication List Current Medications: Active Medications Acetaminophen (Tylenol -) 650 mg PO Q6H PRN PRN Reason: FEVER Last Admin: 05/07/20 08:22 Dose: 650 mg Documented by: Acetaminophen (Tylenol -) 650 mg PO Q6H PRN PRN Reason: PAIN SCALE 1-3 Last Admin: 05/06/20 02:11 Dose: 650 mg Documented by: Calcium Carbonate/Cholecalciferol (Os-Immanuel 500+D -) 2 tab PO DAILY [facility] Last Admin: 05/07/20 09:56 Dose: 2 tab Documented by: Docusate Sodium (Colace -) 100 mg PO Q12H [facility] Last Admin: 05/07/20 06:11 Dose: Not Given Documented by: Furosemide (Lasix -) 80 mg PO DAILY [facility] Last Admin: 05/07/20 09:55 Dose: Not Given Documented by: Heparin Sodium (Porcine) (Heparin -) 1,000 unit IVPUSH PRN PRN PRN Reason: Heparin Heparin Sodium (Porcine) (Heparin -) 5,000 unit IVPUSH PRN PRN PRN Reason: Heparin Last Admin: 05/07/20 10:04 Dose: 5,000 unit Documented by: Heparin Sodium (Porcine) 25, (000 unit/ Sodium Chloride) 500 mls @ 20 mls/hr IV TITR [facility]; Protocol Last Admin: 05/07/20 10:42 Dose: 1,150 unit/hr, 23 mls/hr Documented by: Insulin Aspart (Novolog Vial Sliding Scale -) 1 vial SQ [facility]; Protocol Last Admin: 05/07/20 11:52 Dose: Not Given Documented by: Isosorbide Mononitrate (Imdur -) 30 mg PO [facility] Last Admin: 05/06/20 21:46 Dose: 30 mg Documented by: Lidocaine (Lidoderm Patch -) 1 patch TP DAILY [facility] Last Admin: 05/07/20 09:56 Dose: 1 patch Documented by: Melatonin (Melatonin) 10 mg PO [facility] Last Admin: 05/06/20 21:46 Dose: 10 mg Documented by: Miscellaneous (Lidoderm Patch Removal) 1 each MC DAILY@2200 [facility] Last Admin: 05/06/20 21:51 Dose: 1 each Documented by: Morphine Sulfate (Ms Contin -) 30 mg PO BID [facility] Last Admin: 05/07/20 10:10 Dose: Not Given Documented by: Oxycodone HCl (Roxicodone -) 20 mg PO Q4H PRN PRN Reason: PAIN LEVEL 7 - 10 Last Admin: 05/07/20 08:17 Dose: 20 mg Documented by: Pregabalin (Lyrica -) 50 mg PO DAILY [facility] Last Admin: 05/07/20 09:57 Dose: Not Given Documented by: Warfarin Sodium (Coumadin -) 5 mg PO DAILY@1800 [facility] Last Admin: 05/06/20 17:25 Dose: 5 mg Documented by: - Objective Vital Signs: Vital Signs Temperature 98.2 F 05/07/20 11:35 Pulse Rate 60 05/07/20 14:15 Respiratory Rate 18 05/07/20 14:15 Blood Pressure 118/60 05/07/20 14:15 O2 Sat by Pulse Oximetry (%) 93 L 05/07/20 09:00 Constitutional: Yes: Calm Eyes: Yes: Conjunctiva Clear HENT: Yes: Atraumatic Neck: Yes: Supple Cardiovascular: Yes: S1, S2 Respiratory: Yes: CTA Bilaterally Gastrointestinal: Yes: Soft Genitourinary: Yes: WNL Musculoskeletal: Yes: WNL Edema: No Integumentary: Yes: WNL Neurological: Yes: Oriented Psychiatric: Yes: Oriented Labs: CBC, BMP 05/07/20 07:23 05/07/20 07:23 INR, PTT INR 1.02 (0.83-1.09) 05/07/20 07:23 Assessment/Plan Current Medications Generic Name Dose Route Start Last Admin Trade Name Christianoq PRN Reason Stop Dose Admin Acetaminophen 650 mg 05/01/20 17:30 05/07/20 08:22 Tylenol - PO 650 mg Q6H PRN Administration FEVER Acetaminophen 650 mg 05/01/20 17:30 05/06/20 02:11 Tylenol - PO 650 mg Q6H PRN Administration PAIN SCALE 1-3 Calcium Carbonate/Cholecalciferol 2 tab 05/04/20 15:45 05/07/20 09:56 Os-Immanuel 500+D - PO 2 tab DAILY [facility] Administration Docusate Sodium 100 mg 04/30/20 18:30 05/07/20 06:11 Colace - PO Not Given Q12H [facility] Furosemide 80 mg 05/07/20 10:00 05/07/20 09:55 Lasix - PO Not Given DAILY [facility] Heparin Sodium (Porcine) 1,000 unit 05/07/20 09:01 Heparin - IVPUSH PRN PRN Heparin Heparin Sodium (Porcine) 5,000 unit 05/07/20 09:01 05/07/20 10:04 Heparin - IVPUSH 5,000 unit PRN PRN Administration Heparin Heparin Sodium (Porcine) 25, 500 mls @ 20 mls/hr 05/07/20 09:15 05/07/20 10:42 000 unit/ Sodium Chloride IV 1,150 unit/hr TITR [facility] 23 mls/hr Administration Protocol 1,000 UNIT/HR Insulin Aspart 1 vial 04/30/20 22:00 05/07/20 11:52 Novolog Vial Sliding Scale - SQ Not Given ACHS [facility] Protocol Isosorbide Mononitrate 30 mg 04/30/20 22:00 05/06/20 21:46 Imdur - PO 30 mg HS [facility] Administration Lidocaine 1 patch 05/04/20 15:45 05/07/20 09:56 Lidoderm Patch - TP 1 patch DAILY [facility] Administration Melatonin 10 mg 05/02/20 23:28 05/06/20 21:46 Melatonin PO 10 mg HS [facility] Administration Miscellaneous 1 each 05/04/20 22:00 05/06/20 21:51 Lidoderm Patch Removal MC 1 each DAILY@2200 [facility] Administration Morphine Sulfate 30 mg 04/30/20 22:00 05/07/20 10:10 Ms Contin - PO Not Given BID [facility] Oxycodone HCl 20 mg 05/02/20 11:05 05/07/20 08:17 Roxicodone - PO 20 mg Q4H PRN Administration PAIN LEVEL 7 - 10 Pregabalin 50 mg 05/05/20 10:00 05/07/20 09:57 Lyrica - PO Not Given DAILY [facility] Warfarin Sodium 5 mg 05/06/20 18:00 05/06/20 17:25 Coumadin - PO 5 mg DAILY@1800 [facility] Administration Impression 1. ESRD 2. s/p fall 3. copd 4. chf 5. positive anti-histone ab 6. fluid overload 7. cva 8. anemia Plan - HD today - will arrange for HD tomorrow to get him back on schedule - pending placement in HD - ortho follow up - renal diet - fluid restriction with diet
[2020-05-07] MEDS ORDERED: WARFARIN NA 5 MG TABLET PO SCH (16:56)
[2020-05-07] MEDS ORDERED: WARFARIN NA 2.5 MG TABLET ONE (17:17)
[2020-05-07] MEDS ORDERED: WARFARIN NA 5 MG TABLET ONE (17:18)
[2020-05-07] MEDS ORDERED: WARFARIN NA 5 MG, WARFARIN NA 2.5 MG PO SCH (18:00)
[2020-05-07] MEDS: MELATONIN 5 MG TABLETS PO SCH (21:13)
[2020-05-07] MEDS: ISOSORBIDE MONONITRATE 30 MG TAB.SR.24H (FP) PO SCH (21:13)
[2020-05-07] MEDS: LIDOCAINE PATCH REMOVAL MC SCH (21:16)
[2020-05-08] MEDS: oxyCODONE HCL 5 MG TABLET PO PRN ×5 (03:56→23:20)
[2020-05-08] MEDS: ACETAMINOPHEN 325 MG TABLET (FP) PO PRN (05:21)
[2020-05-08] MEDS: DOCUSATE SODIUM 100 MG CAPSULE (FP) PO SCH ×2 (05:31→17:30)
[2020-05-08] MEDS: INSULIN SLIDING SCALE (NOVOLOG) 1 VIAL SQ SCH ×4 (06:13→21:14)
[2020-05-08 09:17] LABS: BASO % 1.4 % (0-2.0); EOS % 0.9 % (0-4.5); HEMOGLOBIN 7.4 GM/dL (11.7-16.9); LYMPH % 6.6 % (8-40); MCH 29.7 pg (25.7-33.7); MCHC 30.8 g/dl (32.0-35.9); MEAN CELL VOLUME 96.3 fl (80-96); MEAN PLT VOLUME 9.2 fl (7.5-11.1); MONO % 10.2 % (3.8-10.2); NEUT % 80.9 % (42.8-82.8); PLATELET COUNT 198 K/MM3 (134-434); RBC 2.49 M/mm3 (4.00-5.60); RDW 18.2 % (11.9-15.9); WHITE BLOOD COUNT 8.5 K/mm3 (4.0-10.0)
[2020-05-08 09:18] LABS: PROTHROMBIN TIME (PATIENT) 11.8 SEC (9.7-13.0)
[2020-05-08 09:20] LABS: ACTIVATED PTT 35.7 SECONDS (25.2-36.5)
[2020-05-08] MEDS: morphine SO4 SUSTAINED ACTING 30 MG TABLET.SA PO SCH ×2 (09:24→21:10)
[2020-05-08] MEDS ORDERED: SODIUM CHLORIDE 250 ML IV PRN (09:29)
[2020-05-08] MEDS ORDERED: EPOETIN ALFA 10,000 UNIT/1 ML VIAL SQ ONE (09:30)
[2020-05-08 10:10] LABS: CALCIUM 8.7 mg/dL (8.5-10.1)
[2020-05-08 10:12] LABS: BILIRUBIN,TOTAL 0.5 mg/dL (0.2-1); CREATININE 2.2 mg/dL (0.55-1.3); TOT PROT 5.8 g/dl (6.4-8.2)
[2020-05-08 10:13] LABS: BLOOD UREA NITROGEN 37.6 mg/dL (7-18)
[2020-05-08 10:20] LABS: ANISOCYTOSIS 1+; MACROCYTOSIS 1+; PLATELET ESTIMATE NORMAL; TEAR DROP CELLS 1+
[2020-05-08] MEDS: HEPARIN - 25,000 UNIT in SODIUM CHLORIDE 495 ML IV SCH (11:07)
[2020-05-08] MEDS: LIDOCAINE 5% TOPICAL PATCH TP SCH (11:10)
[2020-05-08] MEDS: FUROSEMIDE 40 MG TABLET (FP) PO SCH (13:28)
[2020-05-08] MEDS: PREGABALIN 50 MG CAPSULE PO SCH (13:28)
[2020-05-08] MEDS: CALCIUM 500MG/VIT-D 200 UNITS COMBO TABLET (FP) PO SCH (13:28)
--- NOTE | 2020-05-08 14:13 | PN ---
Progress Note, Physician History of Present Illness: Pt seen and examined at bedside. He is awake and alert. He denies shortness of breath. - Current Medication List Current Medications: Active Medications Acetaminophen (Tylenol -) 650 mg PO Q6H PRN PRN Reason: FEVER Last Admin: 05/08/20 05:21 Dose: 650 mg Documented by: Acetaminophen (Tylenol -) 650 mg PO Q6H PRN PRN Reason: PAIN SCALE 1-3 Last Admin: 05/06/20 02:11 Dose: 650 mg Documented by: Calcium Carbonate/Cholecalciferol (Os-Immanuel 500+D -) 2 tab PO DAILY [facility] Last Admin: 05/08/20 13:28 Dose: 2 tab Documented by: Docusate Sodium (Colace -) 100 mg PO Q12H [facility] Last Admin: 05/08/20 05:31 Dose: Not Given Documented by: Furosemide (Lasix -) 80 mg PO DAILY [facility] Last Admin: 05/08/20 13:28 Dose: Not Given Documented by: Heparin Sodium (Porcine) (Heparin -) 1,000 unit IVPUSH PRN PRN PRN Reason: Heparin Heparin Sodium (Porcine) (Heparin -) 5,000 unit IVPUSH PRN PRN PRN Reason: Heparin Last Admin: 05/07/20 21:30 Dose: 5,000 unit Documented by: Heparin Sodium (Porcine) 25, (000 unit/ Sodium Chloride) 500 mls @ 20 mls/hr IV TITR [facility]; Protocol Last Admin: 05/08/20 11:07 Dose: 1,000 unit/hr, 20 mls/hr Documented by: Insulin Aspart (Novolog Vial Sliding Scale -) 1 vial SQ [facility]; Protocol Last Admin: 05/08/20 13:29 Dose: Not Given Documented by: Isosorbide Mononitrate (Imdur -) 30 mg PO [facility] Last Admin: 05/07/20 21:13 Dose: 30 mg Documented by: Lidocaine (Lidoderm Patch -) 1 patch TP DAILY [facility] Last Admin: 05/08/20 11:10 Dose: 1 patch Documented by: Melatonin (Melatonin) 10 mg PO [facility] Last Admin: 05/07/20 21:13 Dose: 10 mg Documented by: Miscellaneous (Lidoderm Patch Removal) 1 each MC DAILY@2200 [facility] Last Admin: 05/07/20 21:16 Dose: 1 each Documented by: Morphine Sulfate (Ms Contin -) 30 mg PO BID [facility] Last Admin: 05/08/20 09:24 Dose: 30 mg Documented by: Oxycodone HCl (Roxicodone -) 20 mg PO Q4H PRN PRN Reason: PAIN LEVEL 7 - 10 Last Admin: 05/08/20 13:27 Dose: 20 mg Documented by: Pregabalin (Lyrica -) 50 mg PO DAILY [facility] Last Admin: 05/08/20 13:28 Dose: 50 mg Documented by: Warfarin Sodium 5 mg/ Warfarin (Sodium 2.5 mg) 7.5 mg PO DAILY@1800 [facility] Last Admin: 05/07/20 17:19 Dose: 7.5 mg Documented by: - Objective Vital Signs: Vital Signs Temperature 98.4 F 05/08/20 13:31 Pulse Rate 67 05/08/20 13:31 Respiratory Rate 22 H 05/08/20 13:31 Blood Pressure 135/76 05/08/20 13:31 O2 Sat by Pulse Oximetry (%) 96 05/08/20 08:38 Constitutional: Yes: Calm Eyes: Yes: Conjunctiva Clear HENT: Yes: Atraumatic Cardiovascular: Yes: S1, S2 Respiratory: Yes: CTA Bilaterally Gastrointestinal: Yes: Normal Bowel Sounds, Soft Genitourinary: Yes: WNL Extremities: Yes: WNL Edema: No Neurological: Yes: Oriented Psychiatric: Yes: Oriented Labs: CBC, BMP 05/08/20 07:40 05/08/20 07:40 INR, PTT INR 1.00 (0.83-1.09) 05/08/20 07:40 Assessment/Plan Current Medications Generic Name Dose Route Start Last Admin Trade Name Freq PRN Reason Stop Dose Admin Acetaminophen 650 mg 05/01/20 17:30 05/08/20 05:21 Tylenol - PO 650 mg Q6H PRN Administration FEVER Acetaminophen 650 mg 05/01/20 17:30 05/06/20 02:11 Tylenol - PO 650 mg Q6H PRN Administration PAIN SCALE 1-3 Calcium Carbonate/Cholecalciferol 2 tab 05/04/20 15:45 05/08/20 13:28 Os-Immanuel 500+D - PO 2 tab DAILY [facility] Administration Docusate Sodium 100 mg 04/30/20 18:30 05/08/20 05:31 Colace - PO Not Given Q12H [facility] Furosemide 80 mg 05/07/20 10:00 05/08/20 13:28 Lasix - PO Not Given DAILY [facility] Heparin Sodium (Porcine) 1,000 unit 05/07/20 09:01 Heparin - IVPUSH PRN PRN Heparin Heparin Sodium (Porcine) 5,000 unit 05/07/20 09:01 05/07/20 21:30 Heparin - IVPUSH 5,000 unit PRN PRN Administration Heparin Heparin Sodium (Porcine) 25, 500 mls @ 20 mls/hr 05/07/20 09:15 05/08/20 11:07 000 unit/ Sodium Chloride IV 1,000 unit/hr TITR [facility] 20 mls/hr Administration Protocol 1,000 UNIT/HR Insulin Aspart 1 vial 04/30/20 22:00 05/08/20 13:29 Novolog Vial Sliding Scale - SQ Not Given ACHS [facility] Protocol Isosorbide Mononitrate 30 mg 04/30/20 22:00 05/07/20 21:13 Imdur - PO 30 mg HS [facility] Administration Lidocaine 1 patch 05/04/20 15:45 05/08/20 11:10 Lidoderm Patch - TP 1 patch DAILY [facility] Administration Melatonin 10 mg 05/02/20 23:28 05/07/20 21:13 Melatonin PO 10 mg HS [facility] Administration Miscellaneous 1 each 05/04/20 22:00 05/07/20 21:16 Lidoderm Patch Removal MC 1 each DAILY@2200 [facility] Administration Morphine Sulfate 30 mg 04/30/20 22:00 05/08/20 09:24 Ms Contin - PO 30 mg BID [facility] Administration Oxycodone HCl 20 mg 05/02/20 11:05 05/08/20 13:27 Roxicodone - PO 20 mg Q4H PRN Administration PAIN LEVEL 7 - 10 Pregabalin 50 mg 05/05/20 10:00 05/08/20 13:28 Lyrica - PO 50 mg DAILY [facility] Administration Warfarin Sodium 5 mg/ Warfarin 7.5 mg 05/07/20 18:00 05/07/20 17:19 Sodium 2.5 mg PO 7.5 mg DAILY@1800 [facility] Administration Laboratory Tests 05/06/20 19:35 Hep Bs Antibody Non reactive Hep Bs Antibody, Quant <3.1 L Hep B Core Ab Interpret Negative Impression 1. ESRD 2. s/p fall 3. copd 4. chf 5. positive anti-histone ab 6. fluid overload 7. cva 8. anemia Plan - HD today, pt back on hod MWF schedule - pending placement - can cont lasix on non HD days - ortho follow up - renal diet - fluid restriction with diet
--- NOTE | 2020-05-08 15:09 | PN ---
Physical Exam: SUBJECTIVE: Patient seen and examined. denies any shortness of breath. asking for his pain meds to be increased but he is at times lethargic and advised him of side effects including respiratory distress. OBJECTIVE: inr subtherapeutic, on heparin gtt with coumadin bridge (afib) hep panel pending ------- Patient is a 70 year old male with a significant past medical history of A-fib, HFrEF (EF 30-35%, Global LV Hypokinesis), CAD (S/P CABG), ischemic cardiomyopathy s/p PPM, 1st degree AV Block, CVA, COPD (on 4L Home O2), ESRD on HD (Makes minimal urine, on HD MWF), IDDM. Patient admitted on 04/30/2020 after sustaining ground level fall at home. States that he lost balance and fell backward. Hit his head on tiled floor. No blood loss. No LOC. Had pain on his Left arm and Left hip and could not get off of floor. patient sustained s/p fall: a left sided proximal humerus fracture, and nondisplaced inferior pubic ramus fracture. seen by ortho, no surgical interventions recommended, physical therapy recommended. ------ covid status: negative as per serology 05/04/2020. discharge plan: awaiting hep panel results as patient will need results prior to attending rehab/dialysis. Period Temp Pulse Resp BP Sys/Chandra Pulse Ox Last 24 Hr 98.0 F-98.6 F 54-115 18-22 92-135/52-76 93-96 GENERAL: The patient is awake, alert, and fully oriented, in no acute distress. HEAD: Normal with no signs of trauma. EYES: PERRL, extraocular movements intact, sclera anicteric, conjunctiva clear. No ptosis. ENT: Ears normal, nares patent, oropharynx clear without exudates, moist mucous membranes. NECK: Trachea midline, full range of motion, supple. LUNGS: Breath sounds equal, clear to auscultation bilaterally HEART: Regular rate and rhythm ABDOMEN: Soft, nontender, nondistended, normoactive bowel sounds EXTREMITIES: a left sided proximal humerus fracture - skin with eccymosis NEUROLOGICAL: Normal speech, gait not observed. Laboratory Results - last 24 hr 05/06/20 05/07/20 05/07/20 19:35 15:46 17:15 WBC RBC Hgb Hct MCV MCH MCHC RDW Plt Count MPV Absolute Neuts (auto) Neutrophils % Neutrophils % (Manual) Band Neutrophils % Lymphocytes % Lymphocytes % (Manual) Monocytes % Monocytes % (Manual) Eosinophils % Eosinophils % (Manual) Basophils % Basophils % (Manual) Myelocytes % (Man) Promyelocytes % (Man) Blast Cells % (Manual) Nucleated RBC % Metamyelocytes Hypochromia Platelet Estimate Polychromasia Poikilocytosis Basophilic Stippling Anisocytosis Microcytosis Macrocytosis Tear Drop Cells PT with INR INR PTT (Actin FS) 161.9 H Sodium Potassium Chloride Carbon Dioxide Anion Gap BUN Creatinine Est GFR (CKD-EPI)AfAm Est GFR (CKD-EPI)NonAf POC Glucometer 99 Random Glucose Calcium Magnesium Total Bilirubin AST ALT Alkaline Phosphatase Total Protein Albumin Hep Bs Antibody Non reactive Hep Bs Antibody, Quant <3.1 L Hep B Core Ab Interpret Negative 05/07/20 05/08/20 05/08/20 21:00 05:25 07:40 WBC 8.5 RBC 2.49 L Hgb 7.4 L Hct 24.0 L MCV 96.3 H MCH 29.7 MCHC 30.8 L RDW 18.2 H Plt Count 198 MPV 9.2 Absolute Neuts (auto) 6.9 Neutrophils % 80.9 Neutrophils % (Manual) 81.0 Band Neutrophils % 1.0 Lymphocytes % 6.6 L Lymphocytes % (Manual) 6.0 L D Monocytes % 10.2 Monocytes % (Manual) 7 Eosinophils % 0.9 Eosinophils % (Manual) 1.0 Basophils % 1.4 Basophils % (Manual) 0.0 Myelocytes % (Man) 3 H D Promyelocytes % (Man) 0 Blast Cells % (Manual) 0 Nucleated RBC % 0 Metamyelocytes 1 D Hypochromia 2+ Platelet Estimate Normal Polychromasia 2+ Poikilocytosis 1+ Basophilic Stippling 1+ Anisocytosis 1+ Microcytosis 0 Macrocytosis 1+ Tear Drop Cells 1+ PT with INR INR PTT (Actin FS) 29.3 Sodium Potassium Chloride Carbon Dioxide Anion Gap BUN Creatinine Est GFR (CKD-EPI)AfAm Est GFR (CKD-EPI)NonAf POC Glucometer 103 Random Glucose Calcium Magnesium Total Bilirubin AST ALT Alkaline Phosphatase Total Protein Albumin Hep Bs Antibody Hep Bs Antibody, Quant Hep B Core Ab Interpret 05/08/20 05/08/20 05/08/20 07:40 07:40 13:23 WBC RBC Hgb Hct MCV MCH MCHC RDW Plt Count MPV Absolute Neuts (auto) Neutrophils % Neutrophils % (Manual) Band Neutrophils % Lymphocytes % Lymphocytes % (Manual) Monocytes % Monocytes % (Manual) Eosinophils % Eosinophils % (Manual) Basophils % Basophils % (Manual) Myelocytes % (Man) Promyelocytes % (Man) Blast Cells % (Manual) Nucleated RBC % Metamyelocytes Hypochromia Platelet Estimate Polychromasia Poikilocytosis Basophilic Stippling Anisocytosis Microcytosis Macrocytosis Tear Drop Cells PT with INR 11.80 INR 1.00 PTT (Actin FS) 35.7 Sodium 140 Potassium 4.0 Chloride 102 Carbon Dioxide 32 Anion Gap 5 L BUN 37.6 H Creatinine 2.2 H Est GFR (CKD-EPI)AfAm 33.45 Est GFR (CKD-EPI)NonAf 28.86 POC Glucometer 112 Random Glucose 148 H Calcium 8.7 Magnesium 2.0 Total Bilirubin 0.5 AST 10 L ALT 16 Alkaline Phosphatase 83 Total Protein 5.8 L Albumin 3.0 L Hep Bs Antibody Hep Bs Antibody, Quant Hep B Core Ab Interpret Active Medications Generic Name Dose Route Start Last Admin Trade Name Freq PRN Reason Stop Dose Admin Acetaminophen 650 mg 05/01/20 17:30 05/08/20 05:21 Tylenol - PO 650 mg Q6H PRN Administration FEVER Acetaminophen 650 mg 05/01/20 17:30 05/06/20 02:11 Tylenol - PO 650 mg Q6H PRN Administration PAIN SCALE 1-3 Calcium Carbonate/Cholecalciferol 2 tab 05/04/20 15:45 05/08/20 13:28 Os-Immanuel 500+D - PO 2 tab DAILY [facility] Administration Docusate Sodium 100 mg 04/30/20 18:30 05/08/20 05:31 Colace - PO Not Given Q12H [facility] Furosemide 80 mg 05/07/20 10:00 05/08/20 13:28 Lasix - PO Not Given DAILY [facility] Heparin Sodium (Porcine) 1,000 unit 05/07/20 09:01 Heparin - IVPUSH PRN PRN Heparin Heparin Sodium (Porcine) 5,000 unit 05/07/20 09:01 05/07/20 21:30 Heparin - IVPUSH 5,000 unit PRN PRN Administration Heparin Heparin Sodium (Porcine) 25, 500 mls @ 20 mls/hr 05/07/20 09:15 05/08/20 11:07 000 unit/ Sodium Chloride IV 1,000 unit/hr TITR [facility] 20 mls/hr Administration Protocol 1,000 UNIT/HR Insulin Aspart 1 vial 04/30/20 22:00 05/08/20 13:29 Novolog Vial Sliding Scale - SQ Not Given ACHS [facility] Protocol Isosorbide Mononitrate 30 mg 04/30/20 22:00 05/07/20 21:13 Imdur - PO 30 mg HS [facility] Administration Lidocaine 1 patch 05/04/20 15:45 05/08/20 11:10 Lidoderm Patch - TP 1 patch DAILY [facility] Administration Melatonin 10 mg 05/02/20 23:28 05/07/20 21:13 Melatonin PO 10 mg HS [facility] Administration Miscellaneous 1 each 05/04/20 22:00 05/07/20 21:16 Lidoderm Patch Removal MC 1 each DAILY@2200 [facility] Administration Morphine Sulfate 30 mg 04/30/20 22:00 05/08/20 09:24 Ms Contin - PO 30 mg BID [facility] Administration Oxycodone HCl 20 mg 05/02/20 11:05 05/08/20 13:27 Roxicodone - PO 20 mg Q4H PRN Administration PAIN LEVEL 7 - 10 Pregabalin 50 mg 05/05/20 10:00 05/08/20 13:28 Lyrica - PO 50 mg DAILY [facility] Administration Warfarin Sodium 5 mg/ Warfarin 7.5 mg 05/07/20 18:00 05/07/20 17:19 Sodium 2.5 mg PO 7.5 mg DAILY@1800 [facility] Administration ASSESSMENT/PLAN: Problem List - Problems (1) Right humeral fracture Assessment/Plan: per ortho no surgical interventions. Continue with shoulder sling for 4 to 6 weeks after the injury. will need SNF/rehab after DC Code(s): S42.301A - UNSP FRACTURE OF SHAFT OF HUMERUS, RIGHT ARM, INIT (2) Fracture of superior pubic ramus Assessment/Plan: ortho following [facility] LLE will need SNF/rehab after DC Code(s): S32.519A - FRACTURE OF SUPERIOR RIM OF UNSP PUBIS, INIT FOR CLOS FX (3) ESRD (end stage renal disease) Assessment/Plan: dialysis per renal on [facility] schedule Code(s): N18.6 - END STAGE RENAL DISEASE (4) AV block, 1st degree Assessment/Plan: PPM in place Code(s): I44.0 - ATRIOVENTRICULAR BLOCK, FIRST DEGREE (5) CVA (cerebral vascular accident) Assessment/Plan: history of CVA. PT ordered. 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 head ct moderate vol loss on head ct. no acute b leed seen Code(s): S09.90XA - UNSPECIFIED INJURY OF HEAD, INITIAL ENCOUNTER Qualifiers: Encounter type: initial encounter Qualified Code(s): S09.90XA - Unspecified injury of head, initial encounter (9) Atrial fibrillation Assessment/Plan: on heparin drip with bridge to coumadin Code(s): I48.91 - UNSPECIFIED ATRIAL FIBRILLATION (10) Congestive heart failure (CHF) Assessment/Plan: on lasix 80mg off dialysis days Code(s): I50.9 - HEART FAILURE, UNSPECIFIED Qualifiers: Heart failure type: other Qualified Code(s): I50.9 - Heart failure, unspecified (11) Diabetes mellitus Assessment/Plan: on novolog based on bgms Code(s): E11.9 - TYPE 2 DIABETES MELLITUS WITHOUT COMPLICATIONS Qualifiers: Diabetes mellitus type: type 2 Diabetes mellitus terminologist insulin use: with senior living use Diabetes mellitus complication status: with circulatory complication Diabetes mellitus complication detail: with peripheral angiopathy with gangrene Qualified Code(s): E11.52 - Type 2 diabetes mellitus with diabetic peripheral angiopathy with gangrene (12) Subtherapeutic international normalized ratio (INR) Assessment/Plan: on heparin gtt with coumadin bridge Code(s): R79.1 - ABNORMAL COAGULATION PROFILE (13) DVT prophylaxis Assessment/Plan: heparin gtt with coumadin bridge Code(s): Z29.9 - ENCOUNTER FOR PROPHYLACTIC MEASURES, UNSPECIFIED Visit type - Emergency Visit Emergency Visit: Yes ED Registration Date: 04/30/20 Care time: The patient presented to the Emergency Department on the above date and was hospitalized for further evaluation of their emergent condition. - New Patient This patient is new to me today: No - Critical Care Critical Care patient: No - Discharge Referral Referred to [facility] No
[2020-05-08] MEDS: WARFARIN NA 5 MG TABLET PO SCH (17:16)
[2020-05-08] MEDS: ISOSORBIDE MONONITRATE 30 MG TAB.SR.24H (FP) PO SCH (21:10)
[2020-05-08] MEDS: LIDOCAINE PATCH REMOVAL MC SCH (21:11)
[2020-05-08] MEDS: MELATONIN 5 MG TABLETS PO SCH (21:11)
[2020-05-08 22:10] LABS: HEP B CORE AB, TOT Negative (Negative)
[2020-05-09] MEDS: HEPARIN NA (PORCINE) 5,000 UNITS/ML 1ML VIAL IVPUSH PRN ×2 (00:22→11:46)
[2020-05-09] MEDS: ACETAMINOPHEN 325 MG TABLET (FP) PO PRN ×3 (00:22→14:55)
[2020-05-09] MEDS: oxyCODONE HCL 5 MG TABLET PO PRN ×4 (04:29→18:20)
[2020-05-09] MEDS: DOCUSATE SODIUM 100 MG CAPSULE (FP) PO SCH ×2 (05:49→17:48)
[2020-05-09] MEDS: INSULIN SLIDING SCALE (NOVOLOG) 1 VIAL SQ SCH ×4 (06:01→21:17)
[2020-05-09] MEDS: CALCIUM 500MG/VIT-D 200 UNITS COMBO TABLET (FP) PO SCH ×2 (08:31→09:20)
[2020-05-09] MEDS: FUROSEMIDE 40 MG TABLET (FP) PO SCH ×2 (08:32→09:20)
[2020-05-09] MEDS: PREGABALIN 50 MG CAPSULE PO SCH ×2 (08:32→09:20)
[2020-05-09] MEDS: LIDOCAINE 5% TOPICAL PATCH TP SCH (09:20)
[2020-05-09] MEDS: morphine SO4 SUSTAINED ACTING 30 MG TABLET.SA PO SCH ×2 (10:43→21:08)
[2020-05-09 11:25] LABS: BASO % 1.4 % (0-2.0); EOS % 1.5 % (0-4.5); HEMATOCRIT 24.4 % (35.4-49); HEMOGLOBIN 7.5 GM/dL (11.7-16.9); LYMPH % 6.1 % (8-40); MCH 30.2 pg (25.7-33.7); MCHC 30.6 g/dl (32.0-35.9); MEAN CELL VOLUME 98.7 fl (80-96); PLATELET COUNT 213 K/MM3 (134-434); RBC 2.47 M/mm3 (4.00-5.60); WHITE BLOOD COUNT 8.6 K/mm3 (4.0-10.0)
[2020-05-09 11:32] LABS: INR 1.15 (0.83-1.09); PROTHROMBIN TIME (PATIENT) 13.6 SEC (9.7-13.0)
[2020-05-09 11:35] LABS: ACTIVATED PTT 32.4 SECONDS (25.2-36.5)
[2020-05-09] MEDS: HEPARIN - 25,000 UNIT in SODIUM CHLORIDE 495 ML IV SCH ×2 (11:45→11:49)
[2020-05-09 11:54] LABS: ALBUMIN 2.9 g/dl (3.4-5.0); BILIRUBIN,TOTAL 0.6 mg/dL (0.2-1); BLOOD UREA NITROGEN 27.9 mg/dL (7-18); CALCIUM 8.7 mg/dL (8.5-10.1); MAGNESIUM 1.8 mg/dL (1.8-2.4); POTASSIUM 3.7 mmol/L (3.5-5.1); TOT PROT 5.5 g/dl (6.4-8.2)
[2020-05-09 12:22] LABS: ANISOCYTOSIS 1+; OVALOCYTE 1+; PLATELET ESTIMATE NORMAL; TEAR DROP CELLS 1+
--- NOTE | 2020-05-09 16:47 | PN ---
Progress Note, Physician History of Present Illness: seen and examined at bedside. INR still subtherapeutic. remains on heparin gtt. endorses pain in LUE. Endorses pain in pelvis when moved or turned. - Current Medication List Current Medications: Active Medications Acetaminophen (Tylenol -) 650 mg PO Q6H PRN PRN Reason: FEVER Last Admin: 05/09/20 14:55 Dose: 650 mg Documented by: Acetaminophen (Tylenol -) 650 mg PO Q6H PRN PRN Reason: PAIN SCALE 1-3 Last Admin: 05/09/20 00:22 Dose: 650 mg Documented by: Calcium Carbonate/Cholecalciferol (Os-Immanuel 500+D -) 2 tab PO DAILY [facility] Last Admin: 05/09/20 09:20 Dose: Not Given Documented by: Docusate Sodium (Colace -) 100 mg PO Q12H [facility] Last Admin: 05/09/20 05:49 Dose: Not Given Documented by: Furosemide (Lasix -) 80 mg PO DAILY [facility] Last Admin: 05/09/20 09:20 Dose: Not Given Documented by: Heparin Sodium (Porcine) (Heparin -) 1,000 unit IVPUSH PRN PRN PRN Reason: Heparin Heparin Sodium (Porcine) (Heparin -) 5,000 unit IVPUSH PRN PRN PRN Reason: Heparin Last Admin: 05/09/20 11:46 Dose: 5,000 unit Documented by: Heparin Sodium (Porcine) 25, (000 unit/ Sodium Chloride) 500 mls @ 20 mls/hr IV TITR [facility]; Protocol Last Admin: 05/09/20 11:49 Dose: 1,000 unit/hr, 20 mls/hr Documented by: Insulin Aspart (Novolog Vial Sliding Scale -) 1 vial SQ [facility]; Protocol Last Admin: 05/09/20 10:19 Dose: 2 units Documented by: Isosorbide Mononitrate (Imdur -) 30 mg PO HS [facility] Last Admin: 05/08/20 21:10 Dose: 30 mg Documented by: Lidocaine (Lidoderm Patch -) 1 patch TP DAILY [facility] Last Admin: 05/09/20 09:20 Dose: 1 patch Documented by: Melatonin (Melatonin) 10 mg PO HS [facility] Last Admin: 05/08/20 21:11 Dose: 10 mg Documented by: Miscellaneous (Lidoderm Patch Removal) 1 each MC DAILY@2200 [facility] Last Admin: 05/08/20 21:11 Dose: 1 each Documented by: Morphine Sulfate (Ms Contin -) 30 mg PO BID [facility] Last Admin: 05/09/20 10:43 Dose: 30 mg Documented by: Oxycodone HCl (Roxicodone -) 20 mg PO Q4H PRN PRN Reason: PAIN LEVEL 7 - 10 Last Admin: 05/09/20 14:55 Dose: 20 mg Documented by: Pantoprazole Sodium (Protonix -) 40 mg PO DAILY [facility] Pregabalin (Lyrica -) 50 mg PO DAILY [facility] Last Admin: 05/09/20 09:20 Dose: Not Given Documented by: Rosuvastatin Calcium (Crestor -) 20 mg PO HS [facility] Warfarin Sodium (Coumadin -) 10 mg PO DAILY@1800 [facility] Last Admin: 05/08/20 17:16 Dose: 10 mg Documented by: - Objective Vital Signs: Vital Signs Temperature 98.3 F 05/09/20 09:30 Pulse Rate 66 05/09/20 09:30 Respiratory Rate 18 05/09/20 09:30 Blood Pressure 110/70 05/09/20 09:30 O2 Sat by Pulse Oximetry (%) 95 05/09/20 09:00 Constitutional: Yes: No Distress Eyes: Yes: EOM Intact, Other (conjunctival pallor) HENT: Yes: Normocephalic Neck: Yes: Supple Cardiovascular: Yes: Regular Rate and Rhythm Respiratory: Yes: Other (soft crackles at the bases) Gastrointestinal: Yes: Normal Bowel Sounds, Soft. No: Tenderness Genitourinary: Yes: Oliguria Extremities: Yes: Other (bruising of LUE. fingers are warm with good capillary refill. sensation intact.) Edema: Yes Edema: LLE: Trace, RLE: Trace Neurological: Yes: Alert Psychiatric: Yes: Alert Labs: CBC, BMP 05/09/20 11:06 05/09/20 11:06 INR, PTT INR 1.15 (0.83-1.09) H 05/09/20 11:06 Impression/Plan Impression/Plan: Right humeral fracture/fracture of left inferior pubic ramus per ortho no surgical interventions. Continue with shoulder sling for 4 to 6 weeks after the injury. 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 moderate vol loss on head ct. no acute bleed seen Atrial fibrillation on heparin drip with bridge to coumadin still subtherapeutic trend PT/INR and PTT Congestive heart failure (CHF) on lasix 80mg PO dailyys not in exacerbation Diabetes mellitus on ISS BGMs controlled DVT prophylaxis Assessment/Plan: heparin gtt with coumadin bridge GI PPx restart home dose of PPI Discharge when INR therapeutic PT consult Visit type - Emergency Visit Emergency Visit: Yes ED Registration Date: 04/30/20 Care time: The patient presented to the Emergency Department on the above date and was hospitalized for further evaluation of their emergent condition. - New Patient This patient is new to me today: Yes Date on this admission: 05/09/20 - Critical Care Critical Care patient: No
[2020-05-09] MEDS: PANTOPRAZOLE 40 MG TABLET PO SCH (16:58)
[2020-05-09] MEDS: WARFARIN NA 5 MG TABLET PO SCH (17:48)
[2020-05-09] MEDS: ISOSORBIDE MONONITRATE 30 MG TAB.SR.24H (FP) PO SCH (21:08)
[2020-05-09] MEDS: MELATONIN 5 MG TABLETS PO SCH (21:08)
[2020-05-09] MEDS: ROSUVASTATIN CA 20 MG TABLET (FP) PO SCH (21:09)
[2020-05-09] MEDS: LIDOCAINE PATCH REMOVAL MC SCH (21:09)
[2020-05-10] MEDS: oxyCODONE HCL 5 MG TABLET PO PRN ×6 (00:01→21:31)
[2020-05-10] MEDS: ACETAMINOPHEN 325 MG TABLET (FP) PO PRN ×3 (01:54→17:33)
[2020-05-10] MEDS: DOCUSATE SODIUM 100 MG CAPSULE (FP) PO SCH ×2 (05:40→17:37)
[2020-05-10] MEDS: INSULIN SLIDING SCALE (NOVOLOG) 1 VIAL SQ SCH ×4 (06:04→21:30)
[2020-05-10 08:26] LABS: INR 1.22 (0.83-1.09); PROTHROMBIN TIME (PATIENT) 14.4 SEC (9.7-13.0)
[2020-05-10 08:28] LABS: ACTIVATED PTT 36.5 SECONDS (25.2-36.5)
[2020-05-10] MEDS: FUROSEMIDE 40 MG TABLET (FP) PO SCH (09:27)
[2020-05-10] MEDS: LIDOCAINE 5% TOPICAL PATCH TP SCH (09:27)
[2020-05-10] MEDS: CALCIUM 500MG/VIT-D 200 UNITS COMBO TABLET (FP) PO SCH (09:28)
[2020-05-10] MEDS: PANTOPRAZOLE 40 MG TABLET PO SCH (09:28)
[2020-05-10] MEDS: PREGABALIN 50 MG CAPSULE PO SCH (09:28)
[2020-05-10] MEDS: HEPARIN NA (PORCINE) 5,000 UNITS/ML 1ML VIAL IVPUSH PRN ×2 (09:31→16:35)
[2020-05-10 09:38] LABS: ALBUMIN 2.9 g/dl (3.4-5.0); BILIRUBIN,TOTAL 0.6 mg/dL (0.2-1); BLOOD UREA NITROGEN 37.4 mg/dL (7-18); CALCIUM 8.9 mg/dL (8.5-10.1); CREATININE 2.5 mg/dL (0.55-1.3); MAGNESIUM 1.7 mg/dL (1.8-2.4); POTASSIUM 4.2 mmol/L (3.5-5.1); TOT PROT 5.5 g/dl (6.4-8.2)
[2020-05-10] MEDS: morphine SO4 SUSTAINED ACTING 30 MG TABLET.SA PO SCH ×2 (11:03→22:50)
[2020-05-10] MEDS: HEPARIN - 25,000 UNIT in SODIUM CHLORIDE 495 ML IV SCH (11:49)
[2020-05-10 14:02] LABS: BASO % 1.5 % (0-2.0); EOS % 1.4 % (0-4.5); HEMOGLOBIN 7.8 GM/dL (11.7-16.9); LYMPH % 4.9 % (8-40); MCH 30.6 pg (25.7-33.7); MEAN CELL VOLUME 98.6 fl (80-96); MEAN PLT VOLUME 9.2 fl (7.5-11.1); MONO % 9.7 % (3.8-10.2); NEUT % 82.5 % (42.8-82.8); PLATELET COUNT 221 K/MM3 (134-434); RBC 2.54 M/mm3 (4.00-5.60); RDW 18.4 % (11.9-15.9); WHITE BLOOD COUNT 9.5 K/mm3 (4.0-10.0)
[2020-05-10 14:33] LABS: ANISOCYTOSIS 1+; MACROCYTOSIS 1+; OVALOCYTE 1+; PLATELET ESTIMATE NORMAL
--- NOTE | 2020-05-10 16:35 | PN ---
Progress Note (short form) - Note Progress Note: ORTHOPEDIC SURGERY PROGRESS NOTE Department of Orthopedic Surgery SUBJECTIVE No acute events overnight. No complaints currently. Denies chest pain, shortness of breath, or calf pain. No nausea or vomiting. Tolerating oral intake. Pain controlled. PHYSICAL EXAMINATION General: Alert, oriented, cooperative and no distress. Left Upper Extremity: Left shoulder swelling improved. Healed superficial a brasion over the left elbow. Diffuse bruising throughout extremity. Muscle mass equal and symmetric to contralateral side. No atrophy noted. No masses noted. Tender to palpation at left proximal humerus; nontender throughout rest of extremity. Full passive and active ROM elbow, wrist and hand, free from pain. Joints stable with no pathologic laxity. Instrinsic atriphy noted and decreased ability to abduct the fingers. M/R/MSK/AX motor intact; SILT distally except in small and ring fingers which are chronically numb as per the patient; 2+ radial pulses; Cap refill brisk. Tone and reflexes normal. Right Lower Extremity: Ulcers/Eschar noted on great toe and foot. Muscle mass equal and symmetric to contralateral side. No atrophy noted. No masses or effusions noted. No tenderness to palpation. Negative log roll and negative heel strike. Able to straight leg raise. No cords or calf tenderness. No significant calf/ankle edema. Full passive and active ROM, free from pain. Joints stable with no pathologic laxity. EHL/TA/GS motor intact; decreased sensation in patchy distribution which patient states is baseline; 2+ DP pulses; Cap refill brisk. Tone and reflexes normal. Left Lower Extremity: Ulcers/Eschar noted on foot. Muscle mass equal and symmetric to contralateral side. No atrophy noted. No masses or effusions noted. No tenderness to palpation. No cords or calf tenderness. No significant calf/ankle edema. Full passive and active ROM, free from pain. Joints stable with no pathologic laxity. EHL/TA/GS motor intact; decreased sensation in patchy distribution which patient states is baseline; 2+ DP pulses; Cap refill brisk. Tone and reflexes normal. Intake & Output 05/08/20 05/09/20 05/10/20 23:59 23:59 23:59 Intake Total 1788 1297 1060 Output Total 2275 400 200 Balance -487 897 860 Intake: IV 648 267 360 Heparin - 25,000 Unit In 148 267 360 Normal Saline - 495 ml @ 1,000 UNIT/HR 20 mls/hr IV TITR [facility] Rx#: [id number] Normal Saline - 250 ml @ 500 3000 mls/hr IV PRN PRN Rx #:[id number] Oral 1140 1030 700 Output: Urine 275 400 200 Void 275 400 200 Fluid Removed, 2000 Hemodialysis Other: Voiding Method Urinal Urinal Urinal # Unmeasured Voids Void 1 Bowel Movement No No No # Bowel Movements 0 Weight 176 lb 183 lb 3.2 oz 186 lb 8 oz Weight Measurement Method Built in Bedscale Built in Bedscale Built in Bedscale Active Medications Generic Name Dose Route Start Last Admin Trade Name Freq PRN Reason Stop Dose Admin Acetaminophen 650 mg 05/01/20 17:30 05/10/20 09:29 Tylenol - PO 650 mg Q6H PRN Administration FEVER Acetaminophen 650 mg 05/01/20 17:30 05/10/20 01:54 Tylenol - PO 650 mg Q6H PRN Administration PAIN SCALE 1-3 Calcium Carbonate/Cholecalciferol 2 tab 05/04/20 15:45 05/10/20 09:28 Os-Immanuel 500+D - PO 2 tab DAILY [facility] Administration Docusate Sodium 100 mg 04/30/20 18:30 05/10/20 05:40 Colace - PO Not Given Q12H [facility] Epoetin [place] 20,000 unit 05/11/20 08:00 Procrit - IVPUSH 05/11/20 08:01 ONCE ONE Furosemide 80 mg 05/07/20 10:00 05/10/20 09:27 Lasix - PO 80 mg DAILY [facility] Administration Heparin Sodium (Porcine) 1,000 unit 05/07/20 09:01 Heparin - IVPUSH PRN PRN Heparin Heparin Sodium (Porcine) 5,000 unit 05/07/20 09:01 05/10/20 16:35 Heparin - IVPUSH 5,000 unit PRN PRN Administration Heparin Heparin Sodium (Porcine) 25, 500 mls @ 20 mls/hr 05/07/20 09:15 05/10/20 16:34 000 unit/ Sodium Chloride IV 1,250 unit/hr TITR [facility] 25 mls/hr Titration Protocol 1,000 UNIT/HR Sodium Chloride 250 mls @ 3,000 mls/hr 05/10/20 11:14 Normal Saline - IV 07/13/20 11:14 PRN PRN Hypotension during Dialysis Insulin Aspart 1 vial 04/30/20 22:00 05/10/20 11:19 Novolog Vial Sliding Scale - SQ Not Given ACHS [facility] Protocol Isosorbide Mononitrate 30 mg 04/30/20 22:00 05/09/20 21:08 Imdur - PO 30 mg HS [facility] Administration Lidocaine 1 patch 05/04/20 15:45 05/10/20 09:27 Lidoderm Patch - TP 1 patch DAILY [facility] Administration Melatonin 10 mg 05/02/20 23:28 05/09/20 21:08 Melatonin PO 10 mg HS [facility] Administration Miscellaneous 1 each 05/04/20 22:00 05/09/20 21:09 Lidoderm Patch Removal MC 1 each DAILY@2200 [facility] Administration Morphine Sulfate 30 mg 04/30/20 22:00 05/10/20 11:03 Ms Contin - PO 30 mg BID [facility] Administration Oxycodone HCl 20 mg 05/10/20 16:20 Roxicodone - PO Q4H PRN PAIN LEVEL 7 - 10 Pantoprazole Sodium 40 mg 05/09/20 16:45 05/10/20 09:28 Protonix - PO 40 mg DAILY [facility] Administration Pregabalin 50 mg 05/05/20 10:00 05/10/20 09:28 Lyrica - PO 50 mg DAILY [facility] Administration Rosuvastatin Calcium 20 mg 05/09/20 22:00 05/09/20 21:09 Crestor - PO 20 mg HS [facility] Administration Warfarin Sodium 10 mg 05/08/20 18:00 05/09/20 17:48 Coumadin - PO 10 mg DAILY@1800 [facility] Administration Vital Signs (last) Temp Pulse Resp BP Pulse Ox 97.8 F 64 20 111/52 L 94 L 05/10/20 09:49 05/10/20 09:49 05/10/20 09:49 05/10/20 09:49 05/10/20 09:00 Laboratory (coagulation) PT with INR 14.40 SEC (9.7-13.0) H 05/10/20 07:33 Laboratory 05/10/20 07:33 05/10/20 07:33 ASSESSMENT AND PLAN Joao Scott is a 70 year old male with (1) a left sided proximal humerus fracture, and (2) nondisplaced inferior pubic ramus fracture. 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 The injury occurred on 04/30/2020, now 10 days ago. Due to the patients significant medical history he is at increased risk for infection and nonunion with surgical intervention. The patient agreed to proceed with nonoperative tr eatment. 1. New radiographs of the left shoulder ordered. 2. Continue with shoulder sling for 4 to 6 weeks after the injury. 3. Physical therapy: AROM exercises of the elbow, wrist, and hand should begin immediately. PROM exercises of the left shoulder and Codman pendulum exercises as soon as pain allows, typically within two weeks of the injury. There should be no forced abduction-external rotation. Isometric exercises to the shoulder girdle may begin at 4 weeks. AROM and AAROM exercises will be started at 6 weeks, with strengthening exercises starting 3 months after the injury according to radiographic and clinical healing. 4. Pain control; NWB LUE; WBAT LLE 5. DVT prophylaxis 6. Regarding the left hip, he has a history of left hip CRPP; imaging of the hip shows the screws to be close the joint line, but not in the joint. He has no hip pain with PROM of the hip. He will need repeat imaging of the hip to closely monitor for any further settling of the femoral head. 7. Continue with medical management All questions were answered. Thank you for involving our team in the care of this patient. Please have patient follow up in our office in 1 week for new radiographs. [phone].
[2020-05-10] MEDS: WARFARIN NA 5 MG TABLET PO SCH (17:34)
--- NOTE | 2020-05-10 18:35 | PN ---
Progress Note, Physician History of Present Illness: seen and examined at bedside. INR still subtherapeutic. remains on heparin gtt. endorses pain in LUE but its more mobile. Endorses pain in pelvis when moved or turned but everything always hurts. - Current Medication List Current Medications: Active Medications Acetaminophen (Tylenol -) 650 mg PO Q6H PRN PRN Reason: FEVER Last Admin: 05/10/20 17:33 Dose: 650 mg Documented by: Acetaminophen (Tylenol -) 650 mg PO Q6H PRN PRN Reason: PAIN SCALE 1-3 Last Admin: 05/10/20 01:54 Dose: 650 mg Documented by: Calcium Carbonate/Cholecalciferol (Os-Immanuel 500+D -) 2 tab PO DAILY [facility] Last Admin: 05/10/20 09:28 Dose: 2 tab Documented by: Docusate Sodium (Colace -) 100 mg PO Q12H [facility] Last Admin: 05/10/20 17:37 Dose: Not Given Documented by: Epoetin [place] (Procrit -) 20,000 unit IVPUSH ONCE ONE Stop: 05/11/20 08:01 Furosemide (Lasix -) 80 mg PO DAILY [facility] Last Admin: 05/10/20 09:27 Dose: 80 mg Documented by: Heparin Sodium (Porcine) (Heparin -) 1,000 unit IVPUSH PRN PRN PRN Reason: Heparin Heparin Sodium (Porcine) (Heparin -) 5,000 unit IVPUSH PRN PRN PRN Reason: Heparin Last Admin: 05/10/20 16:35 Dose: 5,000 unit Documented by: Heparin Sodium (Porcine) 25, (000 unit/ Sodium Chloride) 500 mls @ 20 mls/hr IV TITR [facility]; Protocol Last Titration: 05/10/20 16:34 Dose: 1,250 unit/hr, 25 mls/hr Documented by: Sodium Chloride (Normal Saline -) 250 mls @ 3,000 mls/hr IV PRN PRN PRN Reason: Hypotension during Dialysis Stop: 05/11/20 11:14 Insulin Aspart (Novolog Vial Sliding Scale -) 1 vial SQ ACHS [facility]; Protocol Last Admin: 05/10/20 17:00 Dose: Not Given Documented by: Isosorbide Mononitrate (Imdur -) 30 mg PO HS [facility] Last Admin: 05/09/20 21:08 Dose: 30 mg Documented by: Lidocaine (Lidoderm Patch -) 1 patch TP DAILY [facility] Last Admin: 05/10/20 09:27 Dose: 1 patch Documented by: Melatonin (Melatonin) 10 mg PO [facility] Last Admin: 05/09/20 21:08 Dose: 10 mg Documented by: Miscellaneous (Lidoderm Patch Removal) 1 each MC DAILY@2200 [facility] Last Admin: 05/09/20 21:09 Dose: 1 each Documented by: Morphine Sulfate (Ms Contin -) 30 mg PO BID [facility] Last Admin: 05/10/20 11:03 Dose: 30 mg Documented by: Oxycodone HCl (Roxicodone -) 20 mg PO Q4H PRN PRN Reason: PAIN LEVEL 7 - 10 Last Admin: 05/10/20 17:34 Dose: 20 mg Documented by: Pantoprazole Sodium (Protonix -) 40 mg PO DAILY [facility] Last Admin: 05/10/20 09:28 Dose: 40 mg Documented by: Pregabalin (Lyrica -) 50 mg PO DAILY [facility] Last Admin: 05/10/20 09:28 Dose: 50 mg Documented by: Rosuvastatin Calcium (Crestor -) 20 mg PO [facility] Last Admin: 05/09/20 21:09 Dose: 20 mg Documented by: Warfarin Sodium (Coumadin -) 10 mg PO DAILY@1800 [facility] Last Admin: 05/10/20 17:34 Dose: 10 mg Documented by: - Objective Vital Signs: Vital Signs Temperature 98.5 F 05/10/20 17:00 Pulse Rate 84 05/10/20 17:00 Respiratory Rate 18 05/10/20 17:00 Blood Pressure 117/65 05/10/20 17:00 O2 Sat by Pulse Oximetry (%) 94 L 05/10/20 09:00 Constitutional: Yes: No Distress Eyes: Yes: EOM Intact, Other (conjunctival pallor) HENT: Yes: Normocephalic Neck: Yes: Supple Cardiovascular: Yes: Regular Rate and Rhythm Respiratory: Yes: Other (soft crackles at the bases) Gastrointestinal: Yes: Normal Bowel Sounds, Soft. No: Tenderness Genitourinary: Yes: Oliguria Extremities: Yes: Other (bruising of LUE. fingers are warm with good capillary refill. sensation intact. bilateral feet have necrotic ulcers) Edema: Yes Edema: LLE: none RLE: none Neurological: Yes: Alert Psychiatric: Yes: Alert Labs: CBC, BMP 05/10/20 07:33 05/10/20 07:33 INR, PTT INR 1.22 (0.83-1.09) H 05/10/20 07:33 Impression/Plan Impression/Plan: Right humeral fracture/fracture of left inferior pubic ramus per ortho no surgical interventions. Continue with shoulder sling for 4 to 6 weeks after the injury. will need SNF/rehab after DC WBAT seen by ortho today and patient will have repeat left shoulder Xray tomorrow prior to discharge. Will follow up with Dr. Sheikh from orthopedics. 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 moderate vol loss on head ct. no acute bleed seen Atrial fibrillation on heparin drip with bridge to coumadin still subtherapeutic trend PT/INR and PTT Congestive heart failure (CHF) on lasix 80mg PO daily on none dialysis days not in exacerbation Diabetes mellitus on ISS BGMs controlled DVT prophylaxis Assessment/Plan: heparin gtt with coumadin bridge GI PPx restart home dose of PPI Discharge when INR therapeutic PT consult Visit type - Emergency Visit Emergency Visit: Yes ED Registration Date: 04/30/20 Care time: The patient presented to the Emergency Department on the above date and was hospitalized for further evaluation of their emergent condition. - New Patient This patient is new to me today: No - Critical Care Critical Care patient: No
[2020-05-10] MEDS: ROSUVASTATIN CA 20 MG TABLET (FP) PO SCH (21:30)
[2020-05-10] MEDS: ISOSORBIDE MONONITRATE 30 MG TAB.SR.24H (FP) PO SCH (21:30)
[2020-05-10] MEDS: LIDOCAINE PATCH REMOVAL MC SCH (21:31)
[2020-05-10] MEDS: MELATONIN 5 MG TABLETS PO SCH (22:49)
[2020-05-11] MEDS: oxyCODONE HCL 5 MG TABLET PO PRN ×6 (01:26→22:00)
[2020-05-11] MEDS: DOCUSATE SODIUM 100 MG CAPSULE (FP) PO SCH (05:33)
[2020-05-11] MEDS: INSULIN SLIDING SCALE (NOVOLOG) 1 VIAL SQ SCH ×4 (06:24→21:19)
[2020-05-11] MEDS: ACETAMINOPHEN 325 MG TABLET (FP) PO PRN ×3 (06:37→20:18)
[2020-05-11 08:44] LABS: BASO % 1.2 % (0-2.0); EOS % 1.1 % (0-4.5); HEMATOCRIT 25.1 % (35.4-49); HEMOGLOBIN 7.8 GM/dL (11.7-16.9); LYMPH % 6.5 % (8-40); MCH 30.7 pg (25.7-33.7); MCHC 31.1 g/dl (32.0-35.9); MEAN CELL VOLUME 98.7 fl (80-96); MEAN PLT VOLUME 9.2 fl (7.5-11.1); MONO % 8.4 % (3.8-10.2); NEUT % 82.8 % (42.8-82.8); PLATELET COUNT 218 K/MM3 (134-434); RBC 2.54 M/mm3 (4.00-5.60); RDW 18.7 % (11.9-15.9); WHITE BLOOD COUNT 9.7 K/mm3 (4.0-10.0)
[2020-05-11 08:55] LABS: INR 1.44 (0.83-1.09); PROTHROMBIN TIME (PATIENT) 17.1 SEC (9.7-13.0)
[2020-05-11 08:58] LABS: ACTIVATED PTT 45.1 SECONDS (25.2-36.5)
[2020-05-11 08:59] LABS: ALBUMIN 2.8 g/dl (3.4-5.0); BILIRUBIN,TOTAL 0.4 mg/dL (0.2-1); BLOOD UREA NITROGEN 47.4 mg/dL (7-18); CALCIUM 8.4 mg/dL (8.5-10.1); CREATININE 2.6 mg/dL (0.55-1.3); MAGNESIUM 1.7 mg/dL (1.8-2.4); POTASSIUM 4.3 mmol/L (3.5-5.1); TOT PROT 5.6 g/dl (6.4-8.2)
[2020-05-11] MEDS: LIDOCAINE 5% TOPICAL PATCH TP SCH (09:21)
[2020-05-11] MEDS: PANTOPRAZOLE 40 MG TABLET PO SCH (09:21)
[2020-05-11] MEDS: HEPARIN NA (PORCINE) 5,000 UNITS/ML 1ML VIAL IVPUSH PRN (09:22)
[2020-05-11] MEDS: HEPARIN - 25,000 UNIT in SODIUM CHLORIDE 495 ML IV SCH (09:25)
[2020-05-11] MEDS ORDERED: SODIUM CHLORIDE 250 ML IV PRN (09:27)
[2020-05-11] MEDS ORDERED: EPOETIN ALFA 20,000 UNIT/1 ML VIAL IVPUSH ONE (09:45)
[2020-05-11] MEDS ORDERED: MAGNESIUM OXIDE 400 MG TABLET (FP) PO ONE (09:45)
[2020-05-11] MEDS ORDERED: PT OWN MED DRAWER 7, Y5N ONE (10:59)
--- NOTE | 2020-05-11 11:55 | PN ---
Physical Exam: SUBJECTIVE: Patient seen and examined. denies any shortness of breath. OBJECTIVE: inr subtherapeutic 1.44, on heparin gtt with coumadin bridge (afib) hep panel resulted ------- Patient is a 70 year old male with a significant past medical history of A-fib, HFrEF (EF 30-35%, Global LV Hypokinesis), CAD (S/P CABG), ischemic cardiomyopathy s/p PPM, 1st degree AV Block, CVA, COPD (on 4L Home O2), ESRD on HD (Makes minimal urine, on HD MWF), IDDM. Patient admitted on 04/30/2020 after sustaining ground level fall at home. States that he lost balance and fell backward. Hit his head on tiled floor. No blood loss. No LOC. Had pain on his Left arm and Left hip and could not get off of floor. patient sustained s/p fall: a left sided proximal humerus fracture, and nondisplaced inferior pubic ramus fracture. seen by ortho, no surgical interventions recommended, physical therapy recommended. ------ covid status: negative as per serology 05/04/2020. Period Temp Pulse Resp BP Sys/Chandra Pulse Ox Last 24 Hr 97.4 F-98.5 F 60-84 18-20 105-133/49-80 96-97 GENERAL: The patient is awake, alert, and fully oriented, in no acute distress. HEAD: Normal with no signs of trauma. EYES: PERRL, extraocular movements intact, sclera anicteric, conjunctiva clear. No ptosis. ENT: Ears normal, nares patent, oropharynx clear without exudates, moist mucous membranes. NECK: Trachea midline, full range of motion, supple. HEART: Regular rate and rhythm ABDOMEN: Soft, nontender, nondistended, normoactive bowel sounds EXTREMITIES: a left sided proximal humerus fracture - skin with eccymosis NEUROLOGICAL: Normal speech, gait not observed. Laboratory Results - last 24 hr 05/10/20 05/10/20 05/10/20 07:33 12:59 16:48 WBC 9.5 RBC 2.54 L Hgb 7.8 L Hct 25.0 L MCV 98.6 H MCH 30.6 MCHC 31.0 L RDW 18.4 H Plt Count 221 MPV 9.2 Absolute Neuts (auto) 7.8 Neutrophils % 82.5 Neutrophils % (Manual) 72.7 Band Neutrophils % 6.1 Lymphocytes % 4.9 L Lymphocytes % (Manual) 7.1 L D Monocytes % 9.7 Monocytes % (Manual) 5 Eosinophils % 1.4 Eosinophils % (Manual) 2.0 D Basophils % 1.5 Basophils % (Manual) 0.0 Myelocytes % (Man) 1 D Promyelocytes % (Man) 0 Blast Cells % (Manual) 0 Nucleated RBC % 1 H Metamyelocytes 1 D Hypochromia 0 Platelet Estimate Normal Polychromasia 1+ Poikilocytosis 1+ Basophilic Stippling 1+ Anisocytosis 1+ Microcytosis 1+ Macrocytosis 1+ Spherocytes 1+ Ovalocytes 1+ Stomatocytes 1+ PT with INR INR PTT (Actin FS) 39.7 H Sodium Potassium Chloride Carbon Dioxide Anion Gap BUN Creatinine Est GFR (CKD-EPI)AfAm Est GFR (CKD-EPI)NonAf POC Glucometer 131 Random Glucose Calcium Magnesium Total Bilirubin AST ALT Alkaline Phosphatase Total Protein Albumin 05/10/20 05/10/20 05/11/20 20:10 20:48 06:02 WBC RBC Hgb Hct MCV MCH MCHC RDW Plt Count MPV Absolute Neuts (auto) Neutrophils % Neutrophils % (Manual) Band Neutrophils % Lymphocytes % Lymphocytes % (Manual) Monocytes % Monocytes % (Manual) Eosinophils % Eosinophils % (Manual) Basophils % Basophils % (Manual) Myelocytes % (Man) Promyelocytes % (Man) Blast Cells % (Manual) Nucleated RBC % Metamyelocytes Hypochromia Platelet Estimate Polychromasia Poikilocytosis Basophilic Stippling Anisocytosis Microcytosis Macrocytosis Spherocytes Ovalocytes Stomatocytes PT with INR INR PTT (Actin FS) 75.8 H Sodium Potassium Chloride Carbon Dioxide Anion Gap BUN Creatinine Est GFR (CKD-EPI)AfAm Est GFR (CKD-EPI)NonAf POC Glucometer 158 108 Random Glucose Calcium Magnesium Total Bilirubin AST ALT Alkaline Phosphatase Total Protein Albumin 05/11/20 05/11/20 05/11/20 07:24 07:24 07:24 WBC 9.7 RBC 2.54 L Hgb 7.8 L Hct 25.1 L MCV 98.7 H MCH 30.7 MCHC 31.1 L RDW 18.7 H Plt Count 218 MPV 9.2 Absolute Neuts (auto) 8.0 Neutrophils % 82.8 Neutrophils % (Manual) Band Neutrophils % Lymphocytes % 6.5 L D Lymphocytes % (Manual) Monocytes % 8.4 Monocytes % (Manual) Eosinophils % 1.1 Eosinophils % (Manual) Basophils % 1.2 Basophils % (Manual) Myelocytes % (Man) Promyelocytes % (Man) Blast Cells % (Manual) Nucleated RBC % 0 Metamyelocytes Hypochromia Platelet Estimate Polychromasia Poikilocytosis Basophilic Stippling Anisocytosis Microcytosis Macrocytosis Spherocytes Ovalocytes Stomatocytes PT with INR 17.10 H INR 1.44 H PTT (Actin FS) 45.1 H Sodium 138 Potassium 4.3 Chloride 103 Carbon Dioxide 29 Anion Gap 6 L BUN 47.4 H Creatinine 2.6 H Est GFR (CKD-EPI)AfAm 27.33 Est GFR (CKD-EPI)NonAf 23.58 POC Glucometer Random Glucose 100 Calcium 8.4 L Magnesium 1.7 L Total Bilirubin 0.4 AST 10 L ALT 15 Alkaline Phosphatase 107 Total Protein 5.6 L Albumin 2.8 L Active Medications Generic Name Dose Route Start Last Admin Trade Name Freq PRN Reason Stop Dose Admin Acetaminophen 650 mg 05/01/20 17:30 05/10/20 17:33 Tylenol - PO 650 mg Q6H PRN Administration FEVER Acetaminophen 650 mg 05/01/20 17:30 05/11/20 06:37 Tylenol - PO 650 mg Q6H PRN Administration PAIN SCALE 1-3 Calcium Carbonate/Cholecalciferol 2 tab 05/04/20 15:45 05/10/20 09:28 Os-Immanuel 500+D - PO 2 tab DAILY RADHA Administration Docusate Sodium 100 mg 04/30/20 18:30 05/11/20 05:33 Colace - PO Not Given Q12H RADHA Furosemide 80 mg 05/07/20 10:00 05/10/20 09:27 Lasix - PO 80 mg DAILY RADHA Administration Heparin Sodium (Porcine) 1,000 unit 05/07/20 09:01 05/11/20 09:22 Heparin - IVPUSH 1,000 unit PRN PRN Administration Heparin Heparin Sodium (Porcine) 5,000 unit 05/07/20 09:01 05/10/20 16:35 Heparin - IVPUSH 5,000 unit PRN PRN Administration Heparin Heparin Sodium (Porcine) 25, 500 mls @ 20 mls/hr 05/07/20 09:15 05/11/20 09:25 000 unit/ Sodium Chloride IV 1,300 unit/hr TITR RADHA 26 mls/hr Administration Protocol 1,000 UNIT/HR Insulin Aspart 1 vial 04/30/20 22:00 05/11/20 06:24 Novolog Vial Sliding Scale - SQ Not Given ACHS RADHA Protocol Isosorbide Mononitrate 30 mg 04/30/20 22:00 05/10/20 21:30 Imdur - PO 30 mg HS RADHA Administration Lidocaine 1 patch 05/04/20 15:45 05/11/20 09:21 Lidoderm Patch - TP 1 patch DAILY RADHA Administration Melatonin 10 mg 05/02/20 23:28 05/10/20 22:49 Melatonin PO 10 mg HS RADHA Administration Miscellaneous 1 each 05/04/20 22:00 05/10/20 21:31 Lidoderm Patch Removal MC 1 each DAILY@2200 RADHA Administration Morphine Sulfate 30 mg 04/30/20 22:00 05/10/20 22:50 Ms Contin - PO 30 mg BID RADHA Administration Oxycodone HCl 20 mg 05/10/20 16:20 05/11/20 09:23 Roxicodone - PO 20 mg Q4H PRN Administration PAIN LEVEL 7 - 10 Pantoprazole Sodium 40 mg 05/09/20 16:45 05/11/20 09:21 Protonix - PO 40 mg DAILY RADHA Administration Pregabalin 50 mg 05/05/20 10:00 05/10/20 09:28 Lyrica - PO 50 mg DAILY RADHA Administration Rosuvastatin Calcium 20 mg 05/09/20 22:00 05/10/20 21:30 Crestor - PO 20 mg HS RADHA Administration Warfarin Sodium 10 mg 05/08/20 18:00 05/10/20 17:34 Coumadin - PO 10 mg DAILY@1800 RADHA Administration ASSESSMENT/PLAN: Problem List - Problems (1) Right humeral fracture Assessment/Plan: per ortho no surgical interventions. Continue with shoulder sling for 4 to 6 weeks after the injury. will need SNF/rehab after DC Code(s): S42.301A - UNSP FRACTURE OF SHAFT OF HUMERUS, RIGHT ARM, INIT (2) Fracture of superior pubic ramus Assessment/Plan: ortho following WBAT LLE will need SNF/rehab after DC Code(s): S32.519A - FRACTURE OF SUPERIOR RIM OF UNSP PUBIS, INIT FOR CLOS FX (3) ESRD (end stage renal disease) Assessment/Plan: dialysis per renal on MW schedule Code(s): N18.6 - END STAGE RENAL DISEASE (4) AV block, 1st degree Assessment/Plan: PPM in place Code(s): I44.0 - ATRIOVENTRICULAR BLOCK, FIRST DEGREE (5) CVA (cerebral vascular accident) Assessment/Plan: history of CVA. PT ordered. Code(s): I63.9 - CEREBRAL INFARCTION, UNSPECIFIED (6) Chronic diastolic CHF (congestive heart failure), NYHA class 2 Assessment/Plan: on HD c/w lasix on off HD days daily weights strict I/Os Code(s): I50.32 - CHRONIC DIASTOLIC (CONGESTIVE) HEART FAILURE (7) Chronic ulcer of leg Assessment/Plan: chronic diabetic ulcers to LE BL followed by Dr Carson and Dr Velez Code(s): L97.909 - NON-PRS CHRONIC ULC UNSP PRT OF UNSP LOW LEG W UNSP SEVERITY (8) Head trauma Assessment/Plan: mental status at baseline. head ct moderate vol loss on head ct. no acute bleed seen Code(s): S09.90XA - UNSPECIFIED INJURY OF HEAD, INITIAL ENCOUNTER Qualifiers: Encounter type: initial encounter Qualified Code(s): S09.90XA - Unspecified injury of head, initial encounter (9) Atrial fibrillation Assessment/Plan: on heparin drip with bridge to coumadin Code(s): I48.91 - UNSPECIFIED ATRIAL FIBRILLATION (10) Congestive heart failure (CHF) Assessment/Plan: on lasix 80mg off dialysis days Code(s): I50.9 - HEART FAILURE, UNSPECIFIED Qualifiers: Heart failure type: other Qualified Code(s): I50.9 - Heart failure, unspecified (11) Diabetes mellitus Assessment/Plan: on novolog based on bgms Code(s): E11.9 - TYPE 2 DIABETES MELLITUS WITHOUT COMPLICATIONS Qualifiers: Diabetes mellitus type: type 2 Diabetes mellitus field professional insulin use: with mcfp use Diabetes mellitus complication status: with circulatory complication Diabetes mellitus complication detail: with peripheral angiopathy with gangrene Qualified Code(s): E11.52 - Type 2 diabetes mellitus with diabetic peripheral angiopathy with gangrene (12) Subtherapeutic international normalized ratio (INR) Assessment/Plan: on heparin gtt with coumadin bridge Code(s): R79.1 - ABNORMAL COAGULATION PROFILE (13) DVT prophylaxis Assessment/Plan: heparin gtt with coumadin bridge Code(s): Z29.9 - ENCOUNTER FOR PROPHYLACTIC MEASURES, UNSPECIFIED Visit type - Emergency Visit Emergency Visit: Yes ED Registration Date: 04/30/20 Care time: The patient presented to the Emergency Department on the above date and was hospitalized for further evaluation of their emergent condition. - New Patient This patient is new to me today: No - Critical Care Critical Care patient: No - Discharge Referral Referred to [facility] Med P.C.: No
[2020-05-11 12:53] LABS: ANISOCYTOSIS 1+; MACROCYTOSIS 1+; OVALOCYTE 1+; PLATELET ESTIMATE NORMAL
--- NOTE | 2020-05-11 13:24 | PN ---
Progress Note, Physician History of Present Illness: Pt seen and examined at bedside. He is tolerating HD. He denies shortness of breath. - Current Medication List Current Medications: Active Medications Acetaminophen (Tylenol -) 650 mg PO Q6H PRN PRN Reason: FEVER Last Admin: 05/10/20 17:33 Dose: 650 mg Documented by: Acetaminophen (Tylenol -) 650 mg PO Q6H PRN PRN Reason: PAIN SCALE 1-3 Last Admin: 05/11/20 06:37 Dose: 650 mg Documented by: Calcium Carbonate/Cholecalciferol (Os-Immanuel 500+D -) 2 tab PO DAILY [facility] Last Admin: 05/10/20 09:28 Dose: 2 tab Documented by: Docusate Sodium (Colace -) 100 mg PO Q12H [facility] Last Admin: 05/11/20 05:33 Dose: Not Given Documented by: Furosemide (Lasix -) 80 mg PO DAILY [facility] Last Admin: 05/10/20 09:27 Dose: 80 mg Documented by: Heparin Sodium (Porcine) (Heparin -) 1,000 unit IVPUSH PRN PRN PRN Reason: Heparin Last Admin: 05/11/20 09:22 Dose: 1,000 unit Documented by: Heparin Sodium (Porcine) (Heparin -) 5,000 unit IVPUSH PRN PRN PRN Reason: Heparin Last Admin: 05/10/20 16:35 Dose: 5,000 unit Documented by: Heparin Sodium (Porcine) 25, (000 unit/ Sodium Chloride) 500 mls @ 20 mls/hr IV TITR [facility]; Protocol Last Admin: 05/11/20 09:25 Dose: 1,300 unit/hr, 26 mls/hr Documented by: Insulin Aspart (Novolog Vial Sliding Scale -) 1 vial SQ ACHS [facility]; Protocol Last Admin: 05/11/20 06:24 Dose: Not Given Documented by: Isosorbide Mononitrate (Imdur -) 30 mg PO [facility] Last Admin: 05/10/20 21:30 Dose: 30 mg Documented by: Lidocaine (Lidoderm Patch -) 1 patch TP DAILY [facility] Last Admin: 05/11/20 09:21 Dose: 1 patch Documented by: Melatonin (Melatonin) 10 mg PO [facility] Last Admin: 05/10/20 22:49 Dose: 10 mg Documented by: Miscellaneous (Lidoderm Patch Removal) 1 each MC DAILY@2200 [facility] Last Admin: 05/10/20 21:31 Dose: 1 each Documented by: Morphine Sulfate (Ms Contin -) 30 mg PO BID [facility] Last Admin: 05/10/20 22:50 Dose: 30 mg Documented by: Oxycodone HCl (Roxicodone -) 20 mg PO Q4H PRN PRN Reason: PAIN LEVEL 7 - 10 Last Admin: 05/11/20 09:23 Dose: 20 mg Documented by: Pantoprazole Sodium (Protonix -) 40 mg PO DAILY [facility] Last Admin: 05/11/20 09:21 Dose: 40 mg Documented by: Pregabalin (Lyrica -) 50 mg PO DAILY [facility] Last Admin: 05/10/20 09:28 Dose: 50 mg Documented by: Rosuvastatin Calcium (Crestor -) 20 mg PO HS [facility] Last Admin: 05/10/20 21:30 Dose: 20 mg Documented by: Warfarin Sodium (Coumadin -) 10 mg PO DAILY@1800 [facility] Last Admin: 05/10/20 17:34 Dose: 10 mg Documented by: - Objective Vital Signs: Vital Signs Temperature 98.4 F 05/11/20 09:55 Pulse Rate 74 05/11/20 13:05 Respiratory Rate 18 05/11/20 13:05 Blood Pressure 121/54 L 05/11/20 13:05 O2 Sat by Pulse Oximetry (%) 97 05/11/20 09:00 Constitutional: Yes: Calm Eyes: Yes: Conjunctiva Clear HENT: Yes: Atraumatic Neck: Yes: Supple Cardiovascular: Yes: S1, S2 Respiratory: Yes: CTA Bilaterally Gastrointestinal: Yes: Soft Genitourinary: Yes: WNL Edema: No Integumentary: Yes: WNL Neurological: Yes: Oriented Psychiatric: Yes: Oriented Labs: CBC, BMP 05/11/20 07:24 05/11/20 07:24 INR, PTT INR 1.44 (0.83-1.09) H 05/11/20 07:24 Problem List - Problems (1) ESRD on hemodialysis Code(s): N18.6 - END STAGE RENAL DISEASE; Z99.2 - DEPENDENCE ON RENAL DIALYSIS Assessment/Plan Current Medications Generic Name Dose Route Start Last Admin Trade Name Freq PRN Reason Stop Dose Admin Acetaminophen 650 mg 05/01/20 17:30 07/12/20 17:33 Tylenol - PO 650 mg Q6H PRN Administration FEVER Acetaminophen 650 mg 05/01/20 17:30 05/11/20 06:37 Tylenol - PO 650 mg Q6H PRN Administration PAIN SCALE 1-3 Calcium Carbonate/Cholecalciferol 2 tab 05/04/20 15:45 05/10/20 09:28 Os-Immanuel 500+D - PO 2 tab DAILY RADHA Administration Docusate Sodium 100 mg 04/30/20 18:30 05/11/20 05:33 Colace - PO Not Given Q12H RADHA Furosemide 80 mg 05/07/20 10:00 05/10/20 09:27 Lasix - PO 80 mg DAILY RADHA Administration Heparin Sodium (Porcine) 1,000 unit 05/07/20 09:01 05/11/20 09:22 Heparin - IVPUSH 1,000 unit PRN PRN Administration Heparin Heparin Sodium (Porcine) 5,000 unit 05/07/20 09:01 05/10/20 16:35 Heparin - IVPUSH 5,000 unit PRN PRN Administration Heparin Heparin Sodium (Porcine) 25, 500 mls @ 20 mls/hr 05/07/20 09:15 05/11/20 09:25 000 unit/ Sodium Chloride IV 1,300 unit/hr TITR RADHA 26 mls/hr Administration Protocol 1,000 UNIT/HR Insulin Aspart 1 vial 04/30/20 22:00 05/11/20 06:24 Novolog Vial Sliding Scale - SQ Not Given ACHS [facility] Protocol Isosorbide Mononitrate 30 mg 04/30/20 22:00 05/10/20 21:30 Imdur - PO 30 mg HS RADHA Administration Lidocaine 1 patch 05/04/20 15:45 05/11/20 09:21 Lidoderm Patch - TP 1 patch DAILY RADHA Administration Melatonin 10 mg 05/02/20 23:28 05/10/20 22:49 Melatonin PO 10 mg HS RADHA Administration Miscellaneous 1 each 05/04/20 22:00 05/10/20 21:31 Lidoderm Patch Removal MC 1 each DAILY@2200 RADHA Administration Morphine Sulfate 30 mg 04/30/20 22:00 05/10/20 22:50 Ms Contin - PO 30 mg BID RADHA Administration Oxycodone HCl 20 mg 05/10/20 16:20 05/11/20 09:23 Roxicodone - PO 20 mg Q4H PRN Administration PAIN LEVEL 7 - 10 Pantoprazole Sodium 40 mg 05/09/20 16:45 05/11/20 09:21 Protonix - PO 40 mg DAILY RADHA Administration Pregabalin 50 mg 05/05/20 10:00 05/10/20 09:28 Lyrica - PO 50 mg DAILY RADHA Administration Rosuvastatin Calcium 20 mg 05/09/20 22:00 05/10/20 21:30 Crestor - PO 20 mg HS RADHA Administration Warfarin Sodium 10 mg 05/08/20 18:00 05/10/20 17:34 Coumadin - PO 10 mg DAILY@1800 RADHA Administration Impression 1. ESRD 2. s/p fall 3. copd 4. chf 5. positive anti-histone ab 6. fluid overload 7. cva 8. anemia Plan - HD today - cont renal diet - pending placement - can cont lasix on non HD days - fluid restriction with diet
[2020-05-11] MEDS: FUROSEMIDE 40 MG TABLET (FP) PO SCH (13:36)
[2020-05-11] MEDS: morphine SO4 SUSTAINED ACTING 30 MG TABLET.SA PO SCH ×3 (13:40→23:00)
[2020-05-11] MEDS: CALCIUM 500MG/VIT-D 200 UNITS COMBO TABLET (FP) PO SCH (13:40)
[2020-05-11] MEDS: PREGABALIN 50 MG CAPSULE PO SCH (13:41)
[2020-05-11] MEDS: WARFARIN NA 5 MG TABLET PO SCH (17:49)
[2020-05-11] MEDS: ISOSORBIDE MONONITRATE 30 MG TAB.SR.24H (FP) PO SCH (21:17)
[2020-05-11] MEDS: ROSUVASTATIN CA 20 MG TABLET (FP) PO SCH (21:17)
[2020-05-11] MEDS: LIDOCAINE PATCH REMOVAL MC SCH (21:19)
[2020-05-11] MEDS: MELATONIN 5 MG TABLETS PO SCH (23:00)
[2020-05-12] MEDS: HEPARIN - 25,000 UNIT in SODIUM CHLORIDE 495 ML IV SCH ×2 (02:56→10:00)
[2020-05-12] MEDS: oxyCODONE HCL 5 MG TABLET PO PRN ×5 (03:03→19:36)
[2020-05-12] MEDS: ACETAMINOPHEN 325 MG TABLET (FP) PO PRN ×2 (05:45→15:14)
[2020-05-12] MEDS: INSULIN SLIDING SCALE (NOVOLOG) 1 VIAL SQ SCH ×4 (06:02→22:09)
[2020-05-12 07:59] LABS: HEMATOCRIT 24.2 % (35.4-49); HEMOGLOBIN 7.5 GM/dL (11.7-16.9); MCH 30.7 pg (25.7-33.7); MEAN CELL VOLUME 98.9 fl (80-96); MEAN PLT VOLUME 8.6 fl (7.5-11.1); PLATELET COUNT 203 K/MM3 (134-434); RBC 2.45 M/mm3 (4.00-5.60); RDW 19.2 % (11.9-15.9); WHITE BLOOD COUNT 8.5 K/mm3 (4.0-10.0)
[2020-05-12 08:25] LABS: INR 1.86 (0.83-1.09); PROTHROMBIN TIME (PATIENT) 22.1 SEC (9.7-13.0)
[2020-05-12 08:28] LABS: ALBUMIN 2.7 g/dl (3.4-5.0); BILIRUBIN,TOTAL 0.5 mg/dL (0.2-1); BLOOD UREA NITROGEN 26.6 mg/dL (7-18); CALCIUM 7.7 mg/dL (8.5-10.1); CREATININE 1.9 mg/dL (0.55-1.3); MAGNESIUM 1.9 mg/dL (1.8-2.4); POTASSIUM 3.7 mmol/L (3.5-5.1); TOT PROT 5.4 g/dl (6.4-8.2)
[2020-05-12] MEDS: HEPARIN NA (PORCINE) 5,000 UNITS/ML 1ML VIAL IVPUSH PRN (09:41)
[2020-05-12] MEDS: LIDOCAINE 5% TOPICAL PATCH TP SCH (09:41)
[2020-05-12] MEDS: CALCIUM 500MG/VIT-D 200 UNITS COMBO TABLET (FP) PO SCH (09:42)
[2020-05-12] MEDS: PANTOPRAZOLE 40 MG TABLET PO SCH (09:42)
[2020-05-12] MEDS: morphine SO4 SUSTAINED ACTING 30 MG TABLET.SA PO SCH ×2 (09:42→22:08)
[2020-05-12] MEDS: PREGABALIN 50 MG CAPSULE PO SCH (09:42)
[2020-05-12] MEDS: FUROSEMIDE 40 MG TABLET (FP) PO SCH (09:43)
--- NOTE | 2020-05-12 13:03 | PN ---
Progress Note (short form) - Note Progress Note: Podiatry F/U: Seen/evaluated at bedside NAD. Pain and numbness persistent to both feet. Denies fever/chills/nausea/vomitting. Afebrile. Awaiting discharge to SNF. Working with physical therapy for hip fracture. ZION: Pedal pulses nonpalpable, TG wnl, CFT about 4 seconds to all digits bilaterally. On the left foot, there is a second digit dorsal PIPJ diabetic ulcer with granular base, minimal slough, hyperkeratotic borders, no probing to bone, no purulent drainage, no fluctuance, no streaking ascending cellulitis, no signs of active infection. On the right foot there is a dorsal hallux necrotic eschar, dry and well demarcated. There is no probing to bone, no purulent drainage, no fluctuance, no streaking ascending cellulitis, no signs of infection. Mild tenderness elicited on palpation of both feet. Imp: 70 year old diabetic PVD male with right hallux eschar and left second digit diabetic ulcer 1. C/w abx per infectious disease 2. Continue local care with betadine to necrotic patch right foot. Can use betadine to left second digit as well. Patient does not want dressings on his feet at this time. 3. Plan for discharge to SNF, hopefully in the next 1-2 days. Will need follow up in 1-2 weeks in wound healing center upon discharge. [phone]. No podiatric surgical intervention required. Nadege Velez DPM
--- NOTE | 2020-05-12 15:50 | PN ---
Physical Exam: SUBJECTIVE: Patient seen and examined. in no acute distress. OBJECTIVE: inr subtherapeutic 1.8, on heparin gtt with coumadin bridge (afib) - likely d/c heparin drip tomorrow pending INR in a.m. hep panel resulted ------- Patient is a 70 year old male with a significant past medical history of A-fib, HFrEF (EF 30-35%, Global LV Hypokinesis), CAD (S/P CABG), ischemic cardiomyopathy s/p PPM, 1st degree AV Block, CVA, COPD (on 4L Home O2), ESRD on HD (Makes minimal urine, on HD MWF), IDDM. Patient admitted on 04/30/2020 after sustaining ground level fall at home. States that he lost balance and fell backward. Hit his head on tiled floor. No blood loss. No LOC. Had pain on his Left arm and Left hip and could not get off of floor. patient sustained s/p fall: a left sided proximal humerus fracture, and nondisplaced inferior pubic ramus fracture. seen by ortho, no surgical interventions recommended, physical therapy recommended. ------ covid status: negative as per serology 05/04/2020. Vital Signs Period Temp Pulse Resp BP Sys/Chandra Pulse Ox Last 24 Hr 98 F-99.3 F 60-89 16-24 99-137/48-81 95-96 GENERAL: The patient is awake, alert, and fully oriented, in no acute distress. HEAD: Normal with no signs of trauma. EYES: PERRL, extraocular movements intact, sclera anicteric, conjunctiva clear. No ptosis. ENT: Ears normal, nares patent, oropharynx clear without exudates, moist mucous membranes. NECK: Trachea midline, full range of motion, supple. HEART: Regular rate and rhythm ABDOMEN: Soft, nontender, nondistended, normoactive bowel sounds EXTREMITIES: a left sided proximal humerus fracture - skin with eccymosis NEUROLOGICAL: Normal speech, gait not observed. Laboratory Results - last 24 hr 05/06/20 05/11/20 05/11/20 19:35 15:40 16:07 WBC RBC Hgb Hct MCV MCH MCHC RDW Plt Count MPV PT with INR INR PTT (Actin FS) 51.6 H Sodium Potassium Chloride Carbon Dioxide Anion Gap BUN Creatinine Est GFR (CKD-EPI)AfAm Est GFR (CKD-EPI)NonAf POC Glucometer 136 Random Glucose Calcium Magnesium Total Bilirubin AST ALT Alkaline Phosphatase Total Protein Albumin Stool Occult Blood HCV Quantitation Hcv not detected HCV RNA log copies/mL TNP 05/11/20 05/12/20 05/12/20 20:59 05:40 05:51 WBC RBC Hgb Hct MCV MCH MCHC RDW Plt Count MPV PT with INR INR PTT (Actin FS) Sodium Potassium Chloride Carbon Dioxide Anion Gap BUN Creatinine Est GFR (CKD-EPI)AfAm Est GFR (CKD-EPI)NonAf POC Glucometer 145 106 Random Glucose Calcium Magnesium Total Bilirubin AST ALT Alkaline Phosphatase Total Protein Albumin Stool Occult Blood Negative HCV Quantitation HCV RNA log copies/mL 05/12/20 05/12/20 05/12/20 07:42 07:42 07:42 WBC 8.5 RBC 2.45 L Hgb 7.5 L Hct 24.2 L MCV 98.9 H MCH 30.7 MCHC 31.0 L RDW 19.2 H Plt Count 203 MPV 8.6 PT with INR INR PTT (Actin FS) 45.1 H Sodium 141 Potassium 3.7 Chloride 106 Carbon Dioxide 31 Anion Gap 4 L BUN 26.6 H Creatinine 1.9 H Est GFR (CKD-EPI)AfAm 39.93 Est GFR (CKD-EPI)NonAf 34.45 POC Glucometer Random Glucose 122 H Calcium 7.7 L Magnesium 1.9 Total Bilirubin 0.5 AST 16 ALT 18 Alkaline Phosphatase 117 Total Protein 5.4 L Albumin 2.7 L Stool Occult Blood HCV Quantitation HCV RNA log copies/mL 05/12/20 05/12/20 07:42 11:04 WBC RBC Hgb Hct MCV MCH MCHC RDW Plt Count MPV PT with INR 22.10 H INR 1.86 H PTT (Actin FS) Sodium Potassium Chloride Carbon Dioxide Anion Gap BUN Creatinine Est GFR (CKD-EPI)AfAm Est GFR (CKD-EPI)NonAf POC Glucometer 172 Random Glucose Calcium Magnesium Total Bilirubin AST ALT Alkaline Phosphatase Total Protein Albumin Stool Occult Blood HCV Quantitation HCV RNA log copies/mL Active Medications Generic Name Dose Route Start Last Admin Trade Name Freq PRN Reason Stop Dose Admin Acetaminophen 650 mg 05/01/20 17:30 05/12/20 15:14 Tylenol - PO 650 mg Q6H PRN Administration FEVER Acetaminophen 650 mg 05/01/20 17:30 07/14/20 05:45 Tylenol - PO 650 mg Q6H PRN Administration PAIN SCALE 1-3 Calcium Carbonate/Cholecalciferol 2 tab 05/04/20 15:45 05/12/20 09:42 Os-Immanuel 500+D - PO 2 tab DAILY RADHA Administration Furosemide 80 mg 05/07/20 10:00 05/12/20 09:43 Lasix - PO Not Given DAILY RADHA Heparin Sodium (Porcine) 1,000 unit 05/07/20 09:01 05/12/20 09:41 Heparin - IVPUSH 1,000 unit PRN PRN Administration Heparin Heparin Sodium (Porcine) 5,000 unit 05/07/20 09:01 05/10/20 16:35 Heparin - IVPUSH 5,000 unit PRN PRN Administration Heparin Heparin Sodium (Porcine) 25, 500 mls @ 20 mls/hr 05/07/20 09:15 05/12/20 10:00 000 unit/ Sodium Chloride IV 1,400 unit/hr TITR RADHA 28 mls/hr Administration Protocol 1,000 UNIT/HR Insulin Aspart 1 vial 04/30/20 22:00 05/12/20 11:08 Novolog Vial Sliding Scale - SQ 2 units ACHS RADHA Administration Protocol Isosorbide Mononitrate 30 mg 04/30/20 22:00 05/11/20 21:17 Imdur - PO 30 mg HS RADHA Administration Lidocaine 1 patch 05/04/20 15:45 05/12/20 09:41 Lidoderm Patch - TP 1 patch DAILY RADHA Administration Melatonin 10 mg 05/02/20 23:28 05/11/20 23:00 Melatonin PO 10 mg HS RADHA Administration Miscellaneous 1 each 05/04/20 22:00 05/11/20 21:19 Lidoderm Patch Removal MC 1 each DAILY@2200 RADHA Administration Morphine Sulfate 30 mg 04/30/20 22:00 05/12/20 09:42 Ms Contin - PO 30 mg BID RADHA Administration Oxycodone HCl 20 mg 05/10/20 16:20 05/12/20 15:14 Roxicodone - PO 20 mg Q4H PRN Administration PAIN LEVEL 7 - 10 Pantoprazole Sodium 40 mg 05/09/20 16:45 05/12/20 09:42 Protonix - PO 40 mg DAILY RADHA Administration Pregabalin 50 mg 05/05/20 10:00 05/12/20 09:42 Lyrica - PO 50 mg DAILY RADHA Administration Rosuvastatin Calcium 20 mg 05/09/20 22:00 05/11/20 21:17 Crestor - PO 20 mg HS RADHA Administration Warfarin Sodium 10 mg 05/08/20 18:00 05/11/20 17:49 Coumadin - PO 10 mg DAILY@1800 RADHA Administration ASSESSMENT/PLAN: Problem List - Problems (1) Right humeral fracture Assessment/Plan: per ortho no surgical interventions. Continue with shoulder sling for 4 to 6 weeks after the injury. will need SNF/rehab after DC Code(s): S42.301A - UNSP FRACTURE OF SHAFT OF HUMERUS, RIGHT ARM, INIT (2) Fracture of superior pubic ramus Assessment/Plan: ortho following WBAT LLE will need SNF/rehab after DC Code(s): S32.519A - FRACTURE OF SUPERIOR RIM OF UNSP PUBIS, INIT FOR CLOS FX (3) ESRD (end stage renal disease) Assessment/Plan: dialysis per renal on [facility] schedule Code(s): N18.6 - END STAGE RENAL DISEASE (4) AV block, 1st degree Assessment/Plan: PPM in place Code(s): I44.0 - ATRIOVENTRICULAR BLOCK, FIRST DEGREE (5) CVA (cerebral vascular accident) Assessment/Plan: history of CVA. PT ordered. Code(s): I63.9 - CEREBRAL INFARCTION, UNSPECIFIED (6) Chronic diastolic CHF (congestive heart failure), NYHA class 2 Assessment/Plan: on HD c/w lasix on off HD days daily weights strict I/Os Code(s): I50.32 - CHRONIC DIASTOLIC (CONGESTIVE) HEART FAILURE (7) Chronic ulcer of leg Assessment/Plan: chronic diabetic ulcers to LE BL followed by Dr Carson and Dr Velez Code(s): L97.909 - NON-PRS CHRONIC ULC UNSP PRT OF UNSP LOW LEG W UNSP SEVERITY (8) Head trauma Assessment/Plan: mental status at baseline. head ct moderate vol loss on head ct. no acute bleed seen Code(s): S09.90XA - UNSPECIFIED INJURY OF HEAD, INITIAL ENCOUNTER Qualifiers: Encounter type: initial encounter Qualified Code(s): S09.90XA - Unspecified injury of head, initial encounter (9) Atrial fibrillation Assessment/Plan: on heparin drip with bridge to coumadin Code(s): I48.91 - UNSPECIFIED ATRIAL FIBRILLATION (10) Congestive heart failure (CHF) Assessment/Plan: on lasix 80mg off dialysis days Code(s): I50.9 - HEART FAILURE, UNSPECIFIED Qualifiers: Heart failure type: other Qualified Code(s): I50.9 - Heart failure, unspecified (11) Diabetes mellitus Assessment/Plan: on novolog based on bgms Code(s): E11.9 - TYPE 2 DIABETES MELLITUS WITHOUT COMPLICATIONS Qualifiers: Diabetes mellitus type: type 2 Diabetes mellitus fci insulin use: with ferry terminal 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 use Diabetes mellitus complication status: with circulatory complication Diabetes mellitus complication detail: with peripheral angiopathy with gangrene Qualified Code(s): E11.52 - Type 2 diabetes mellitus with diabetic peripheral angiopathy with gangrene (12) Subtherapeutic international normalized ratio (INR) Assessment/Plan: on heparin gtt with coumadin bridge Code(s): R79.1 - ABNORMAL COAGULATION PROFILE (13) DVT prophylaxis Assessment/Plan: heparin gtt with coumadin bridge Code(s): Z29.9 - ENCOUNTER FOR PROPHYLACTIC MEASURES, UNSPECIFIED Visit type - Emergency Visit Emergency Visit: Yes ED Registration Date: 04/30/20 Care time: The patient presented to the Emergency Department on the above date and was hospitalized for further evaluation of their emergent condition. - New Patient This patient is new to me today: No - Critical Care Critical Care patient: No - Discharge Referral Referred to [facility] Med P.C.: No
--- NOTE | 2020-05-12 16:42 | PN ---
Progress Note, Physician History of Present Illness: Pt seen and examined at bedside. He is awake and alert. - Current Medication List Current Medications: Active Medications Acetaminophen (Tylenol -) 650 mg PO Q6H PRN PRN Reason: FEVER Last Admin: 05/12/20 15:14 Dose: 650 mg Documented by: Acetaminophen (Tylenol -) 650 mg PO Q6H PRN PRN Reason: PAIN SCALE 1-3 Last Admin: 05/12/20 05:45 Dose: 650 mg Documented by: Calcium Carbonate/Cholecalciferol (Os-Immanuel 500+D -) 2 tab PO DAILY [facility] Last Admin: 05/12/20 09:42 Dose: 2 tab Documented by: Furosemide (Lasix -) 80 mg PO DAILY [facility] Last Admin: 05/12/20 09:43 Dose: Not Given Documented by: Heparin Sodium (Porcine) (Heparin -) 1,000 unit IVPUSH PRN PRN PRN Reason: Heparin Last Admin: 05/12/20 09:41 Dose: 1,000 unit Documented by: Heparin Sodium (Porcine) (Heparin -) 5,000 unit IVPUSH PRN PRN PRN Reason: Heparin Last Admin: 05/10/20 16:35 Dose: 5,000 unit Documented by: Heparin Sodium (Porcine) 25, (000 unit/ Sodium Chloride) 500 mls @ 20 mls/hr IV TITR [facility]; Protocol Last Admin: 05/12/20 10:00 Dose: 1,400 unit/hr, 28 mls/hr Documented by: Insulin Aspart (Novolog Vial Sliding Scale -) 1 vial SQ [facility]; Protocol Last Admin: 05/12/20 11:08 Dose: 2 units Documented by: Isosorbide Mononitrate (Imdur -) 30 mg PO [facility] Last Admin: 05/11/20 21:17 Dose: 30 mg Documented by: Lidocaine (Lidoderm Patch -) 1 patch TP DAILY [facility] Last Admin: 05/12/20 09:41 Dose: 1 patch Documented by: Melatonin (Melatonin) 10 mg PO [facility] Last Admin: 05/11/20 23:00 Dose: 10 mg Documented by: Miscellaneous (Lidoderm Patch Removal) 1 each MC DAILY@2200 [facility] Last Admin: 05/11/20 21:19 Dose: 1 each Documented by: Morphine Sulfate (Ms Contin -) 30 mg PO BID [facility] Last Admin: 05/12/20 09:42 Dose: 30 mg Documented by: Oxycodone HCl (Roxicodone -) 20 mg PO Q4H PRN PRN Reason: PAIN LEVEL 7 - 10 Last Admin: 05/12/20 15:14 Dose: 20 mg Documented by: Pantoprazole Sodium (Protonix -) 40 mg PO DAILY [facility] Last Admin: 05/12/20 09:42 Dose: 40 mg Documented by: Pregabalin (Lyrica -) 50 mg PO DAILY [facility] Last Admin: 05/12/20 09:42 Dose: 50 mg Documented by: Rosuvastatin Calcium (Crestor -) 20 mg PO HS [facility] Last Admin: 05/11/20 21:17 Dose: 20 mg Documented by: Warfarin Sodium (Coumadin -) 10 mg PO DAILY@1800 [facility] Last Admin: 05/11/20 17:49 Dose: 10 mg Documented by: - Objective Vital Signs: Vital Signs Temperature 98.5 F 05/12/20 14:41 Pulse Rate 60 05/12/20 14:41 Respiratory Rate 18 05/12/20 14:41 Blood Pressure 111/56 L 05/12/20 14:41 O2 Sat by Pulse Oximetry (%) 95 05/12/20 09:00 Constitutional: Yes: Calm Eyes: Yes: Conjunctiva Clear HENT: Yes: Atraumatic Cardiovascular: Yes: S1, S2 Respiratory: Yes: CTA Bilaterally Gastrointestinal: Yes: Soft Genitourinary: Yes: WNL Edema: No Neurological: Yes: Oriented Psychiatric: Yes: Oriented Labs: CBC, BMP 05/12/20 07:42 05/12/20 07:42 INR, PTT INR 1.86 (0.83-1.09) H 05/12/20 07:42 Problem List - Problems (1) ESRD on hemodialysis Code(s): N18.6 - END STAGE RENAL DISEASE; Z99.2 - DEPENDENCE ON RENAL DIALYSIS Assessment/Plan Current Medications Generic Name Dose Route Start Last Admin Trade Name Freq PRN Reason Stop Dose Admin Acetaminophen 650 mg 05/01/20 17:30 05/12/20 15:14 Tylenol - PO 650 mg Q6H PRN Administration FEVER Acetaminophen 650 mg 05/01/20 17:30 05/12/20 05:45 Tylenol - PO 650 mg Q6H PRN Administration PAIN SCALE 1-3 Calcium Carbonate/Cholecalciferol 2 tab 05/04/20 15:45 05/12/20 09:42 Os-Immanuel 500+D - PO 2 tab DAILY RADHA Administration Furosemide 80 mg 05/07/20 10:00 05/12/20 09:43 Lasix - PO Not Given DAILY RADHA Heparin Sodium (Porcine) 1,000 unit 05/07/20 09:01 05/12/20 09:41 Heparin - IVPUSH 1,000 unit PRN PRN Administration Heparin Heparin Sodium (Porcine) 5,000 unit 05/07/20 09:01 05/10/20 16:35 Heparin - IVPUSH 5,000 unit PRN PRN Administration Heparin Heparin Sodium (Porcine) 25, 500 mls @ 20 mls/hr 05/07/20 09:15 05/12/20 10:00 000 unit/ Sodium Chloride IV 1,400 unit/hr TITR RADHA 28 mls/hr Administration Protocol 1,000 UNIT/HR Insulin Aspart 1 vial 04/30/20 22:00 05/12/20 11:08 Novolog Vial Sliding Scale - SQ 2 units ACHS RADHA Administration Protocol Isosorbide Mononitrate 30 mg 04/30/20 22:00 05/11/20 21:17 Imdur - PO 30 mg HS RADHA Administration Lidocaine 1 patch 05/04/20 15:45 05/12/20 09:41 Lidoderm Patch - TP 1 patch DAILY RADHA Administration Melatonin 10 mg 05/02/20 23:28 05/11/20 23:00 Melatonin PO 10 mg HS RADHA Administration Miscellaneous 1 each 05/04/20 22:00 05/11/20 21:19 Lidoderm Patch Removal MC 1 each DAILY@2200 RADHA Administration Morphine Sulfate 30 mg 04/30/20 22:00 05/12/20 09:42 Ms Contin - PO 30 mg BID RADHA Administration Oxycodone HCl 20 mg 05/10/20 16:20 05/12/20 15:14 Roxicodone - PO 20 mg Q4H PRN Administration PAIN LEVEL 7 - 10 Pantoprazole Sodium 40 mg 05/09/20 16:45 05/12/20 09:42 Protonix - PO 40 mg DAILY RADHA Administration Pregabalin 50 mg 05/05/20 10:00 05/12/20 09:42 Lyrica - PO 50 mg DAILY RADHA Administration Rosuvastatin Calcium 20 mg 05/09/20 22:00 05/11/20 21:17 Crestor - PO 20 mg HS RADHA Administration Warfarin Sodium 10 mg 05/08/20 18:00 05/11/20 17:49 Coumadin - PO 10 mg DAILY@1800 RADHA Administration Laboratory Tests 05/06/20 19:35 Hep Bs Antibody Non reactive Hep Bs Antibody, Quant <3.1 L Hep B Core Ab Interpret Negative HCV Quantitation Hcv not detected Impression 1. ESRD 2. s/p fall 3. copd 4. chf 5. positive anti-histone ab 6. fluid overload 7. cva 8. anemia Plan - HD in am - pending placement - monitor inr - epogen for anemia - can cont lasix on non HD days - fluid restriction with diet
[2020-05-12] MEDS: WARFARIN NA 5 MG TABLET PO SCH (18:23)
[2020-05-12 21:16] VITALS: BMI 28.4
[2020-05-12] MEDS: ISOSORBIDE MONONITRATE 30 MG TAB.SR.24H (FP) PO SCH (22:07)
[2020-05-12] MEDS: ROSUVASTATIN CA 20 MG TABLET (FP) PO SCH (22:07)
[2020-05-12] MEDS: MELATONIN 5 MG TABLETS PO SCH (22:08)
[2020-05-12] MEDS: LIDOCAINE PATCH REMOVAL MC SCH (22:13)
[2020-05-13] MEDS: oxyCODONE HCL 5 MG TABLET PO PRN ×6 (00:03→20:33)
[2020-05-13] MEDS: ACETAMINOPHEN 325 MG TABLET (FP) PO PRN ×3 (02:14→18:18)
[2020-05-13] MEDS: HEPARIN - 25,000 UNIT in SODIUM CHLORIDE 495 ML IV SCH ×2 (03:50→09:46)
[2020-05-13] MEDS: INSULIN SLIDING SCALE (NOVOLOG) 1 VIAL SQ SCH ×4 (06:35→23:38)
[2020-05-13 08:27] LABS: HEMATOCRIT 23.9 % (35.4-49); HEMOGLOBIN 7.4 GM/dL (11.7-16.9); MCH 31.1 pg (25.7-33.7); MEAN CELL VOLUME 100.4 fl (80-96); MEAN PLT VOLUME 8.8 fl (7.5-11.1); PLATELET COUNT 202 K/MM3 (134-434); RBC 2.38 M/mm3 (4.00-5.60); RDW 19.3 % (11.9-15.9); WHITE BLOOD COUNT 7.9 K/mm3 (4.0-10.0)
[2020-05-13 09:08] LABS: INR 2.21 (0.83-1.09); PROTHROMBIN TIME (PATIENT) 26.3 SEC (9.7-13.0)
[2020-05-13] MEDS: morphine SO4 SUSTAINED ACTING 30 MG TABLET.SA PO SCH ×2 (09:36→23:39)
[2020-05-13] MEDS: LIDOCAINE 5% TOPICAL PATCH TP SCH (09:36)
[2020-05-13] MEDS: PANTOPRAZOLE 40 MG TABLET PO SCH (09:36)
[2020-05-13] MEDS: PREGABALIN 50 MG CAPSULE PO SCH (09:36)
[2020-05-13] MEDS: CALCIUM 500MG/VIT-D 200 UNITS COMBO TABLET (FP) PO SCH (09:36)
[2020-05-13] MEDS: FUROSEMIDE 40 MG TABLET (FP) PO SCH (09:36)
[2020-05-13 10:42] LABS: ALBUMIN 2.8 g/dl (3.4-5.0); BILIRUBIN,TOTAL 0.4 mg/dL (0.2-1); BLOOD UREA NITROGEN 36.3 mg/dL (7-18); CALCIUM 7.8 mg/dL (8.5-10.1); CREATININE 2.2 mg/dL (0.55-1.3); POTASSIUM 3.9 mmol/L (3.5-5.1); TOT PROT 5.3 g/dl (6.4-8.2)
[2020-05-13] MEDS ORDERED: INSULIN (NOVOLOG) ASPART 100 UNITS/ML 10ML VIAL ONE (11:06)
--- NOTE | 2020-05-13 11:10 | PN ---
Physical Exam: SUBJECTIVE: Patient seen and examined. denies any discomfort. OBJECTIVE: inr therapeutic stop heparin drip. covid pending hep panel resulted ------- Patient is a 70 year old male with a significant past medical history of A-fib, HFrEF (EF 30-35%, Global LV Hypokinesis), CAD (S/P CABG), ischemic cardiomyopathy s/p PPM, 1st degree AV Block, CVA, COPD (on 4L Home O2), ESRD on HD (Makes minimal urine, on HD MWF), IDDM. Patient admitted on 04/30/2020 after sustaining ground level fall at home. States that he lost balance and fell backward. Hit his head on tiled floor. No blood loss. No LOC. Had pain on his Left arm and Left hip and could not get off of floor. patient sustained s/p fall: a left sided proximal humerus fracture, and nondisplaced inferior pubic ramus fracture. seen by ortho, no surgical interventions recommended, physical therapy recommended. ------ covid status: negative as per serology 05/04/2020. repeat pending for left arm u/s for increased swelling Vital Signs Period Temp Pulse Resp BP Sys/Chandra Pulse Ox Last 24 Hr 97.5 F-98.5 F 60-67 18-18 100-117/52-62 99-100 GENERAL: The patient is awake, alert, and fully oriented, in no acute distress. HEAD: Normal with no signs of trauma. EYES: PERRL, extraocular movements intact, sclera anicteric, conjunctiva clear. No ptosis. ENT: Ears normal, nares patent, oropharynx clear without exudates, moist mucous membranes. NECK: Trachea midline, full range of motion, supple. HEART: Regular rate and rhythm ABDOMEN: Soft, nontender, nondistended, normoactive bowel sounds EXTREMITIES: a left sided proximal humerus fracture - skin with eccymosis - increased edema, for vascular us to rule out dvt NEUROLOGICAL: Normal speech, gait not observed. Laboratory Results - last 24 hr 05/06/20 05/12/20 05/12/20 19:35 15:40 16:46 WBC RBC Hgb Hct MCV MCH MCHC RDW Plt Count MPV PT with INR INR PTT (Actin FS) 57.2 H Sodium Potassium Chloride Carbon Dioxide Anion Gap BUN Creatinine Est GFR (CKD-EPI)AfAm Est GFR (CKD-EPI)NonAf POC Glucometer 121 Random Glucose Calcium Magnesium Total Bilirubin AST ALT Alkaline Phosphatase Total Protein Albumin HCV Quantitation Hcv not detected HCV RNA log copies/mL TNP 05/12/20 05/13/20 05/13/20 21:56 06:00 06:32 WBC RBC Hgb Hct MCV MCH MCHC RDW Plt Count MPV PT with INR INR PTT (Actin FS) Sodium 140 Potassium 3.9 Chloride 105 Carbon Dioxide 28 Anion Gap 7 L BUN 36.3 H Creatinine 2.2 H Est GFR (CKD-EPI)AfAm 33.45 Est GFR (CKD-EPI)NonAf 28.86 POC Glucometer 167 97 Random Glucose 88 Calcium 7.8 L Magnesium 2.0 Total Bilirubin 0.4 AST 18 ALT 27 Alkaline Phosphatase 152 H Total Protein 5.3 L Albumin 2.8 L HCV Quantitation HCV RNA log copies/mL 05/13/20 05/13/20 05/13/20 07:41 07:41 07:41 WBC 7.9 RBC 2.38 L Hgb 7.4 L Hct 23.9 L MCV 100.4 H MCH 31.1 MCHC 31.0 L RDW 19.3 H Plt Count 202 MPV 8.8 PT with INR 26.30 H INR 2.21 H PTT (Actin FS) 72.6 H Sodium Potassium Chloride Carbon Dioxide Anion Gap BUN Creatinine Est GFR (CKD-EPI)AfAm Est GFR (CKD-EPI)NonAf POC Glucometer Random Glucose Calcium Magnesium Total Bilirubin AST ALT Alkaline Phosphatase Total Protein Albumin HCV Quantitation HCV RNA log copies/mL Active Medications Generic Name Dose Route Start Last Admin Trade Name Freq PRN Reason Stop Dose Admin Acetaminophen 650 mg 05/01/20 17:30 05/13/20 10:50 Tylenol - PO 650 mg Q6H PRN Administration FEVER Acetaminophen 650 mg 05/01/20 17:30 05/13/20 02:14 Tylenol - PO 650 mg Q6H PRN Administration PAIN SCALE 1-3 Calcium Carbonate/Cholecalciferol 2 tab 05/04/20 15:45 05/13/20 09:36 Os-Immanuel 500+D - PO 2 tab DAILY RADHA Administration Epoetin [place] 20,000 unit 05/13/20 16:42 Procrit - IVPUSH 05/13/20 16:43 ONCE ONE Furosemide 80 mg 05/07/20 10:00 05/13/20 09:36 Lasix - PO 80 mg DAILY RADHA Administration Sodium Chloride 250 mls @ 3,000 mls/hr 05/12/20 16:42 Normal Saline - IV 05/13/20 16:42 PRN PRN Hypotension during Dialysis Insulin Aspart 1 vial 04/30/20 22:00 05/13/20 06:35 Novolog Vial Sliding Scale - SQ Not Given ACHS RADHA Protocol Isosorbide Mononitrate 30 mg 04/30/20 22:00 05/12/20 22:07 Imdur - PO 30 mg HS RADHA Administration Lidocaine 1 patch 05/04/20 15:45 05/13/20 09:36 Lidoderm Patch - TP 1 patch DAILY RADHA Administration Melatonin 10 mg 05/02/20 23:28 05/12/20 22:08 Melatonin PO 10 mg HS RADHA Administration Miscellaneous 1 each 05/04/20 22:00 05/12/20 22:13 Lidoderm Patch Removal MC 1 each DAILY@2200 RADHA Administration Morphine Sulfate 30 mg 04/30/20 22:00 05/13/20 09:36 Ms Contin - PO 30 mg BID RADHA Administration Oxycodone HCl 20 mg 05/10/20 16:20 05/13/20 08:34 Roxicodone - PO 20 mg Q4H PRN Administration PAIN LEVEL 7 - 10 Pantoprazole Sodium 40 mg 05/09/20 16:45 05/13/20 09:36 Protonix - PO 40 mg DAILY RADHA Administration Pregabalin 50 mg 05/05/20 10:00 05/13/20 09:36 Lyrica - PO 50 mg DAILY RADHA Administration Rosuvastatin Calcium 20 mg 05/09/20 22:00 05/12/20 22:07 Crestor - PO 20 mg HS RADHA Administration Warfarin Sodium 10 mg 05/08/20 18:00 05/12/20 18:23 Coumadin - PO 10 mg DAILY@1800 RADHA Administration ASSESSMENT/PLAN: Problem List - Problems (1) Right humeral fracture Assessment/Plan: per ortho no surgical interventions. Continue with shoulder sling for 4 to 6 weeks after the injury. will need SNF/rehab after DC Code(s): S42.301A - UNSP FRACTURE OF SHAFT OF HUMERUS, RIGHT ARM, INIT (2) Fracture of superior pubic ramus Assessment/Plan: ortho following WBAT LLE will need SNF/rehab after DC Code(s): S32.519A - FRACTURE OF SUPERIOR RIM OF UNSP PUBIS, INIT FOR CLOS FX (3) ESRD (end stage renal disease) Assessment/Plan: dialysis per renal on [facility] schedule Code(s): N18.6 - END STAGE RENAL DISEASE (4) AV block, 1st degree Assessment/Plan: PPM in place Code(s): I44.0 - ATRIOVENTRICULAR BLOCK, FIRST DEGREE (5) CVA (cerebral vascular accident) Assessment/Plan: history of CVA. PT ordered. Code(s): I63.9 - CEREBRAL INFARCTION, UNSPECIFIED (6) Chronic diastolic CHF (congestive heart failure), NYHA class 2 Assessment/Plan: on HD c/w lasix on off HD days daily weights strict I/Os Code(s): I50.32 - CHRONIC DIASTOLIC (CONGESTIVE) HEART FAILURE (7) Chronic ulcer of leg Assessment/Plan: chronic diabetic ulcers to LE BL followed by Dr Carson and Dr Velez Code(s): L97.909 - NON-PRS CHRONIC ULC UNSP PRT OF UNSP LOW LEG W UNSP SEVERITY (8) Head trauma Assessment/Plan: mental status at baseline. head ct moderate vol loss on head ct. no acute bleed seen Code(s): S09.90XA - UNSPECIFIED INJURY OF HEAD, INITIAL ENCOUNTER Qualifiers: Encounter type: initial encounter Qualified Code(s): S09.90XA - Unspecified injury of head, initial encounter (9) Atrial fibrillation Assessment/Plan: inr 2.2 continue coumadin Code(s): I48.91 - UNSPECIFIED ATRIAL FIBRILLATION (10) Congestive heart failure (CHF) Assessment/Plan: on lasix 80mg off dialysis days Code(s): I50.9 - HEART FAILURE, UNSPECIFIED Qualifiers: Heart failure type: other Qualified Code(s): I50.9 - Heart failure, unspecified (11) Diabetes mellitus Assessment/Plan: on novolog based on bgms Code(s): E11.9 - TYPE 2 DIABETES MELLITUS WITHOUT COMPLICATIONS Qualifiers: Diabetes mellitus type: type 2 Diabetes mellitus shelter insulin use: with meterman use Diabetes mellitus complication status: with circulatory complication Diabetes mellitus complication detail: with peripheral angiopathy with gangrene Qualified Code(s): E11.52 - Type 2 diabetes mellitus with diabetic peripheral angiopathy with gangrene (12) Subtherapeutic international normalized ratio (INR) Assessment/Plan: on coumadin Code(s): R79.1 - ABNORMAL COAGULATION PROFILE (13) DVT prophylaxis Assessment/Plan: coumadin Code(s): Z29.9 - ENCOUNTER FOR PROPHYLACTIC MEASURES, UNSPECIFIED Visit type - Emergency Visit Emergency Visit: Yes ED Registration Date: 04/30/20 Care time: The patient presented to the Emergency Department on the above date and was hospitalized for further evaluation of their emergent condition. - New Patient This patient is new to me today: No - Critical Care Critical Care patient: No - Discharge Referral Referred to [facility] Med P.C.: No
[2020-05-13] MEDS ORDERED: SODIUM CHLORIDE 250 ML IV PRN (11:20)
[2020-05-13] MEDS ORDERED: EPOETIN ALFA 20,000 UNIT/1 ML VIAL IVPUSH ONE (11:30)
--- NOTE | 2020-05-13 12:38 | PN ---
Progress Note, Physician History of Present Illness: Pt seen and examined at bedside. He is awake and alert. He denies shortness of breath. - Current Medication List Current Medications: Active Medications Acetaminophen (Tylenol -) 650 mg PO Q6H PRN PRN Reason: FEVER Last Admin: 05/13/20 10:50 Dose: 650 mg Documented by: Acetaminophen (Tylenol -) 650 mg PO Q6H PRN PRN Reason: PAIN SCALE 1-3 Last Admin: 05/13/20 02:14 Dose: 650 mg Documented by: Calcium Carbonate/Cholecalciferol (Os-Immanuel 500+D -) 2 tab PO DAILY [facility] Last Admin: 05/13/20 09:36 Dose: 2 tab Documented by: Furosemide (Lasix -) 80 mg PO DAILY [facility] Last Admin: 05/13/20 09:36 Dose: 80 mg Documented by: Insulin Aspart (Novolog Vial Sliding Scale -) 1 vial SQ [facility]; Protocol Last Admin: 05/13/20 11:13 Dose: 2 units Documented by: Isosorbide Mononitrate (Imdur -) 30 mg PO [facility] Last Admin: 05/12/20 22:07 Dose: 30 mg Documented by: Lidocaine (Lidoderm Patch -) 1 patch TP DAILY [facility] Last Admin: 05/13/20 09:36 Dose: 1 patch Documented by: Melatonin (Melatonin) 10 mg PO [facility] Last Admin: 05/12/20 22:08 Dose: 10 mg Documented by: Miscellaneous (Lidoderm Patch Removal) 1 each MC DAILY@2200 [facility] Last Admin: 05/12/20 22:13 Dose: 1 each Documented by: Morphine Sulfate (Ms Contin -) 30 mg PO BID [facility] Last Admin: 05/13/20 09:36 Dose: 30 mg Documented by: Oxycodone HCl (Roxicodone -) 20 mg PO Q4H PRN PRN Reason: PAIN LEVEL 7 - 10 Last Admin: 05/13/20 08:34 Dose: 20 mg Documented by: Pantoprazole Sodium (Protonix -) 40 mg PO DAILY [facility] Last Admin: 05/13/20 09:36 Dose: 40 mg Documented by: Pregabalin (Lyrica -) 50 mg PO DAILY [facility] Last Admin: 05/13/20 09:36 Dose: 50 mg Documented by: Rosuvastatin Calcium (Crestor -) 20 mg PO [facility] Last Admin: 05/12/20 22:07 Dose: 20 mg Documented by: Warfarin Sodium (Coumadin -) 10 mg PO DAILY@1800 [facility] Last Admin: 05/12/20 18:23 Dose: 10 mg Documented by: - Objective Vital Signs: Vital Signs Temperature 98.2 F 05/13/20 11:25 Pulse Rate 68 05/13/20 12:30 Respiratory Rate 18 05/13/20 12:30 Blood Pressure 109/56 L 05/13/20 12:30 O2 Sat by Pulse Oximetry (%) 99 05/13/20 05:32 Constitutional: Yes: Calm Eyes: Yes: Conjunctiva Clear HENT: Yes: Atraumatic Neck: Yes: Supple Cardiovascular: Yes: S1, S2 Respiratory: Yes: CTA Bilaterally Gastrointestinal: Yes: Normal Bowel Sounds, Soft Genitourinary: Yes: WNL Musculoskeletal: Yes: WNL Edema: Yes Edema: LUE: 1+ Neurological: Yes: Oriented Psychiatric: Yes: Oriented Labs: CBC, BMP 05/13/20 07:41 05/13/20 06:00 INR, PTT INR 2.21 (0.83-1.09) H 05/13/20 07:41 Problem List - Problems (1) ESRD on hemodialysis Code(s): N18.6 - END STAGE RENAL DISEASE; Z99.2 - DEPENDENCE ON RENAL DIALYSIS Assessment/Plan Current Medications Generic Name Dose Route Start Last Admin Trade Name Freq PRN Reason Stop Dose Admin Acetaminophen 650 mg 05/01/20 17:30 05/13/20 10:50 Tylenol - PO 650 mg Q6H PRN Administration FEVER Acetaminophen 650 mg 05/01/20 17:30 05/13/20 02:14 Tylenol - PO 650 mg Q6H PRN Administration PAIN SCALE 1-3 Calcium Carbonate/Cholecalciferol 2 tab 05/04/20 15:45 05/13/20 09:36 Os-Immanuel 500+D - PO 2 tab DAILY [facility] Administration Furosemide 80 mg 05/07/20 10:00 05/13/20 09:36 Lasix - PO 80 mg DAILY [facility] Administration Insulin Aspart 1 vial 04/30/20 22:00 05/13/20 11:13 Novolog Vial Sliding Scale - SQ 2 units ACHS [facility] Administration Protocol Isosorbide Mononitrate 30 mg 04/30/20 22:00 05/12/20 22:07 Imdur - PO 30 mg HS [facility] Administration Lidocaine 1 patch 05/04/20 15:45 05/13/20 09:36 Lidoderm Patch - TP 1 patch DAILY [facility] Administration Melatonin 10 mg 05/02/20 23:28 05/12/20 22:08 Melatonin PO 10 mg HS [facility] Administration Miscellaneous 1 each 05/04/20 22:00 05/12/20 22:13 Lidoderm Patch Removal MC 1 each DAILY@2200 [facility] Administration Morphine Sulfate 30 mg 04/30/20 22:00 05/13/20 09:36 Ms Contin - PO 30 mg BID [facility] Administration Oxycodone HCl 20 mg 05/10/20 16:20 05/13/20 08:34 Roxicodone - PO 20 mg Q4H PRN Administration PAIN LEVEL 7 - 10 Pantoprazole Sodium 40 mg 05/09/20 16:45 05/13/20 09:36 Protonix - PO 40 mg DAILY [facility] Administration Pregabalin 50 mg 05/05/20 10:00 05/13/20 09:36 Lyrica - PO 50 mg DAILY [facility] Administration Rosuvastatin Calcium 20 mg 05/09/20 22:00 05/12/20 22:07 Crestor - PO 20 mg HS [facility] Administration Warfarin Sodium 10 mg 05/08/20 18:00 05/12/20 18:23 Coumadin - PO 10 mg DAILY@1800 [facility] Administration Impression 1. ESRD 2. s/p fall 3. copd 4. chf 5. positive anti-histone ab 6. fluid overload 7. cva 8. anemia Plan - HD today - left arm ultrasound - pending placement - monitor inr - epogen for anemia - can cont lasix on non HD days - fluid restriction with diet
[2020-05-13] MEDS: WARFARIN NA 5 MG TABLET PO SCH (18:15)
[2020-05-13] MEDS: MELATONIN 5 MG TABLETS PO SCH (23:39)
[2020-05-13] MEDS: LIDOCAINE PATCH REMOVAL MC SCH (23:40)
[2020-05-13] MEDS: ISOSORBIDE MONONITRATE 30 MG TAB.SR.24H (FP) PO SCH (23:40)
[2020-05-13] MEDS: ROSUVASTATIN CA 20 MG TABLET (FP) PO SCH (23:40)
[2020-05-14] MEDS: ACETAMINOPHEN 325 MG TABLET (FP) PO PRN ×4 (00:53→20:16)
[2020-05-14] MEDS: oxyCODONE HCL 5 MG TABLET PO PRN ×4 (02:49→18:29)
[2020-05-14] MEDS: INSULIN SLIDING SCALE (NOVOLOG) 1 VIAL SQ SCH ×4 (06:25→22:25)
[2020-05-14 07:25] LABS: HEMOGLOBIN 7.5 GM/dL (11.7-16.9); MCH 31.1 pg (25.7-33.7); MCHC 31.3 g/dl (32.0-35.9); MEAN CELL VOLUME 99.4 fl (80-96); MEAN PLT VOLUME 8.7 fl (7.5-11.1); PLATELET COUNT 212 K/MM3 (134-434); RBC 2.41 M/mm3 (4.00-5.60); RDW 19.7 % (11.9-15.9); WHITE BLOOD COUNT 7.7 K/mm3 (4.0-10.0)
[2020-05-14 07:58] LABS: INR 2.52 (0.83-1.09)
[2020-05-14 08:00] LABS: ALBUMIN 2.7 g/dl (3.4-5.0); BILIRUBIN,TOTAL 0.4 mg/dL (0.2-1); BLOOD UREA NITROGEN 21.2 mg/dL (7-18); CALCIUM 8.2 mg/dL (8.5-10.1); CREATININE 1.7 mg/dL (0.55-1.3); MAGNESIUM 1.8 mg/dL (1.8-2.4); TOT PROT 5.3 g/dl (6.4-8.2)
[2020-05-14 08:01] LABS: ACTIVATED PTT 35.8 SECONDS (25.2-36.5)
[2020-05-14] MEDS: CALCIUM 500MG/VIT-D 200 UNITS COMBO TABLET (FP) PO SCH (09:48)
[2020-05-14] MEDS: FUROSEMIDE 40 MG TABLET (FP) PO SCH (09:48)
[2020-05-14] MEDS: PANTOPRAZOLE 40 MG TABLET PO SCH (09:48)
[2020-05-14] MEDS: LIDOCAINE 5% TOPICAL PATCH TP SCH (09:48)
[2020-05-14] MEDS: PREGABALIN 50 MG CAPSULE PO SCH (09:48)
[2020-05-14] MEDS: morphine SO4 SUSTAINED ACTING 30 MG TABLET.SA PO SCH ×2 (11:02→22:24)
[2020-05-14] MEDS ORDERED: SODIUM CHLORIDE 250 ML IV PRN (14:55)
--- NOTE | 2020-05-14 14:55 | PN ---
Progress Note, Physician History of Present Illness: Pt seen and examined at bedside. He is awake and alert. - Current Medication List Current Medications: Active Medications Acetaminophen (Tylenol -) 650 mg PO Q6H PRN PRN Reason: FEVER Last Admin: 05/14/20 13:49 Dose: 650 mg Documented by: Acetaminophen (Tylenol -) 650 mg PO Q6H PRN PRN Reason: PAIN SCALE 1-3 Last Admin: 05/14/20 07:35 Dose: 650 mg Documented by: Calcium Carbonate/Cholecalciferol (Os-Immanuel 500+D -) 2 tab PO DAILY [facility] Last Admin: 05/14/20 09:48 Dose: 2 tab Documented by: Furosemide (Lasix -) 80 mg PO DAILY [facility] Last Admin: 05/14/20 09:48 Dose: 80 mg Documented by: Insulin Aspart (Novolog Vial Sliding Scale -) 1 vial SQ [facility]; Protocol Last Admin: 05/14/20 11:26 Dose: Not Given Documented by: Isosorbide Mononitrate (Imdur -) 30 mg PO [facility] Last Admin: 05/13/20 23:40 Dose: 30 mg Documented by: Lidocaine (Lidoderm Patch -) 1 patch TP DAILY [facility] Last Admin: 05/14/20 09:48 Dose: 1 patch Documented by: Melatonin (Melatonin) 10 mg PO [facility] Last Admin: 05/13/20 23:39 Dose: 10 mg Documented by: Miscellaneous (Lidoderm Patch Removal) 1 each MC DAILY@2200 [facility] Last Admin: 05/13/20 23:40 Dose: 1 each Documented by: Morphine Sulfate (Ms Contin -) 30 mg PO BID [facility] Last Admin: 05/14/20 11:02 Dose: 30 mg Documented by: Oxycodone HCl (Roxicodone -) 20 mg PO Q4H PRN PRN Reason: PAIN LEVEL 7 - 10 Last Admin: 05/14/20 13:48 Dose: 20 mg Documented by: Pantoprazole Sodium (Protonix -) 40 mg PO DAILY [facility] Last Admin: 05/14/20 09:48 Dose: 40 mg Documented by: Pregabalin (Lyrica -) 50 mg PO DAILY [facility] Last Admin: 05/14/20 09:48 Dose: 50 mg Documented by: Rosuvastatin Calcium (Crestor -) 20 mg PO [facility] Last Admin: 05/13/20 23:40 Dose: 20 mg Documented by: Warfarin Sodium (Coumadin -) 5 mg PO DAILY@1800 [facility] Last Admin: 05/13/20 18:15 Dose: 5 mg Documented by: - Objective Vital Signs: Vital Signs Temperature 98.1 F 05/14/20 13:32 Pulse Rate 60 05/14/20 13:32 Respiratory Rate 20 05/14/20 13:32 Blood Pressure 147/60 05/14/20 13:32 O2 Sat by Pulse Oximetry (%) 95 05/14/20 13:32 Constitutional: Yes: Calm Eyes: Yes: Conjunctiva Clear HENT: Yes: Atraumatic Neck: Yes: Supple Cardiovascular: Yes: S1, S2 Respiratory: Yes: CTA Bilaterally Gastrointestinal: Yes: Normal Bowel Sounds, Soft Genitourinary: Yes: WNL Edema: LUE: 1+ Neurological: Yes: Oriented Psychiatric: Yes: Oriented Labs: CBC, BMP 05/14/20 06:39 05/14/20 06:39 INR, PTT INR 2.52 (0.83-1.09) H 05/14/20 06:39 Problem List - Problems (1) ESRD on hemodialysis Code(s): N18.6 - END STAGE RENAL DISEASE; Z99.2 - DEPENDENCE ON RENAL DIALYSIS Assessment/Plan Current Medications Generic Name Dose Route Start Last Admin Trade Name Manohar PRN Reason Stop Dose Admin Acetaminophen 650 mg 05/01/20 17:30 05/14/20 13:49 Tylenol - PO 650 mg Q6H PRN Administration FEVER Acetaminophen 650 mg 05/01/20 17:30 05/14/20 07:35 Tylenol - PO 650 mg Q6H PRN Administration PAIN SCALE 1-3 Calcium Carbonate/Cholecalciferol 2 tab 05/04/20 15:45 05/14/20 09:48 Os-Immanuel 500+D - PO 2 tab DAILY [facility] Administration Furosemide 80 mg 05/07/20 10:00 05/14/20 09:48 Lasix - PO 80 mg DAILY [facility] Administration Insulin Aspart 1 vial 04/30/20 22:00 05/14/20 11:26 Novolog Vial Sliding Scale - SQ Not Given ACHS [facility] Protocol Isosorbide Mononitrate 30 mg 04/30/20 22:00 05/13/20 23:40 Imdur - PO 30 mg HS [facility] Administration Lidocaine 1 patch 05/04/20 15:45 05/14/20 09:48 Lidoderm Patch - TP 1 patch DAILY [facility] Administration Melatonin 10 mg 05/02/20 23:28 05/13/20 23:39 Melatonin PO 10 mg HS [facility] Administration Miscellaneous 1 each 05/04/20 22:00 05/13/20 23:40 Lidoderm Patch Removal MC 1 each DAILY@2200 [facility] Administration Morphine Sulfate 30 mg 04/30/20 22:00 05/14/20 11:02 Ms Contin - PO 30 mg BID [facility] Administration Oxycodone HCl 20 mg 05/10/20 16:20 05/14/20 13:48 Roxicodone - PO 20 mg Q4H PRN Administration PAIN LEVEL 7 - 10 Pantoprazole Sodium 40 mg 05/09/20 16:45 05/14/20 09:48 Protonix - PO 40 mg DAILY [facility] Administration Pregabalin 50 mg 05/05/20 10:00 05/14/20 09:48 Lyrica - PO 50 mg DAILY [facility] Administration Rosuvastatin Calcium 20 mg 05/09/20 22:00 05/13/20 23:40 Crestor - PO 20 mg HS [facility] Administration Warfarin Sodium 5 mg 05/13/20 18:00 05/13/20 18:15 Coumadin - PO 5 mg DAILY@1800 [facility] Administration Impression 1. ESRD 2. s/p fall 3. copd 4. chf 5. positive anti-histone ab 6. fluid overload 7. cva 8. anemia Plan - next HD tomorrow - repeat labs in am - follow ultrasound results - pending placement - epogen for anemia - monitor inr - can cont lasix on non HD days - fluid restriction with diet
[2020-05-14] MEDS ORDERED: PT OWN MED DRAWER 7, Y5N ONE (15:24)
--- NOTE | 2020-05-14 15:35 | PN ---
Physical Exam: SUBJECTIVE: Patient seen and examined at the bedside. denies any malaise. pain controlled. OBJECTIVE: Patient is a 70 year old male with a significant past medical history of A-fib, HFrEF (EF 30-35%, Global LV Hypokinesis), CAD (S/P CABG), ischemic cardiomyopathy s/p PPM, 1st degree AV Block, CVA, COPD (on 4L Home O2), ESRD on HD (Makes minimal urine, on HD MWF), IDDM. Patient admitted on 04/30/2020 after sustaining ground level fall at home. States that he lost balance and fell backward. Hit his head on tiled floor. No blood loss. No LOC. Had pain on his Left arm and Left hip and could not get off of floor. patient sustained s/p fall: a left sided proximal humerus fracture, and nondisplaced inferior pubic r amus fracture. seen by ortho, no surgical interventions recommended, physical therapy recommended. ------ covid status: negative as per serology 05/04/2020. repeat pending before discha rging to rehab no dvt seen of left arm Vital Signs Period Temp Pulse Resp BP Sys/Chandra Pulse Ox Last 24 Hr 97.4 F-98.7 F 53-95 18-20 112-153/45-95 95-100 GENERAL: The patient is awake, alert, and fully oriented, in no acute distress. HEAD: Normal with no signs of trauma. EYES: PERRL, extraocular movements intact, sclera anicteric, conjunctiva clear. No ptosis. ENT: Ears normal, nares patent, oropharynx clear without exudates, moist mucous membranes. NECK: Trachea midline, full range of motion, supple. HEART: Regular rate and rhythm ABDOMEN: Soft, nontender, nondistended, normoactive bowel sounds EXTREMITIES: a left sided proximal humerus fracture - skin with eccymosis - increased edema,negative for dvt NEUROLOGICAL: Normal speech, gait not observed. Laboratory Results - last 24 hr 05/13/20 05/13/20 05/13/20 16:39 21:06 23:37 WBC RBC Hgb Hct MCV MCH MCHC RDW Plt Count MPV PT with INR INR PTT (Actin FS) Sodium Potassium Chloride Carbon Dioxide Anion Gap BUN Creatinine Est GFR (CKD-EPI)AfAm Est GFR (CKD-EPI)NonAf POC Glucometer 167 179 128 Random Glucose Calcium Magnesium Total Bilirubin AST ALT Alkaline Phosphatase Total Protein Albumin 05/14/20 05/14/20 05/14/20 06:23 06:39 06:39 WBC 7.7 RBC 2.41 L Hgb 7.5 L Hct 24.0 L MCV 99.4 H MCH 31.1 MCHC 31.3 L RDW 19.7 H Plt Count 212 MPV 8.7 PT with INR INR PTT (Actin FS) Sodium 140 Potassium 4.0 Chloride 105 Carbon Dioxide 33 H Anion Gap 3 L BUN 21.2 H Creatinine 1.7 H Est GFR (CKD-EPI)AfAm 45.68 Est GFR (CKD-EPI)NonAf 39.41 POC Glucometer 92 Random Glucose 89 Calcium 8.2 L Magnesium 1.8 Total Bilirubin 0.4 AST 13 L ALT 23 Alkaline Phosphatase 153 H Total Protein 5.3 L Albumin 2.7 L 05/14/20 05/14/20 06:39 11:25 WBC RBC Hgb Hct MCV MCH MCHC RDW Plt Count MPV PT with INR 30.00 H INR 2.52 H PTT (Actin FS) 35.8 Sodium Potassium Chloride Carbon Dioxide Anion Gap BUN Creatinine Est GFR (CKD-EPI)AfAm Est GFR (CKD-EPI)NonAf POC Glucometer 130 Random Glucose Calcium Magnesium Total Bilirubin AST ALT Alkaline Phosphatase Total Protein Albumin Active Medications Generic Name Dose Route Start Last Admin Trade Name Freq PRN Reason Stop Dose Admin Acetaminophen 650 mg 05/01/20 17:30 05/14/20 13:49 Tylenol - PO 650 mg Q6H PRN Administration FEVER Acetaminophen 650 mg 05/01/20 17:30 05/14/20 07:35 Tylenol - PO 650 mg Q6H PRN Administration PAIN SCALE 1-3 Calcium Carbonate/Cholecalciferol 2 tab 05/04/20 15:45 05/14/20 09:48 Os-Immanuel 500+D - PO 2 tab DAILY [facility] Administration Epoetin [place] 20,000 unit 05/15/20 14:55 Procrit - SQ 05/15/20 14:56 ONCE ONE Furosemide 80 mg 05/07/20 10:00 05/14/20 09:48 Lasix - PO 80 mg DAILY [facility] Administration Sodium Chloride 250 mls @ 3,000 mls/hr 05/14/20 14:55 Normal Saline - IV 05/15/20 14:55 PRN PRN Hypotension during Dialysis Insulin Aspart 1 vial 04/30/20 22:00 05/14/20 11:26 Novolog Vial Sliding Scale - SQ Not Given [facility] Protocol Isosorbide Mononitrate 30 mg 04/30/20 22:00 05/13/20 23:40 Imdur - PO 30 mg HS [facility] Administration Lidocaine 1 patch 05/04/20 15:45 05/14/20 09:48 Lidoderm Patch - TP 1 patch DAILY [facility] Administration Melatonin 10 mg 05/02/20 23:28 05/13/20 23:39 Melatonin PO 10 mg HS [facility] Administration Miscellaneous 1 each 05/04/20 22:00 05/13/20 23:40 Lidoderm Patch Removal MC 1 each DAILY@2200 [facility] Administration Morphine Sulfate 30 mg 04/30/20 22:00 05/14/20 11:02 Ms Contin - PO 30 mg BID [facility] Administration Oxycodone HCl 20 mg 05/10/20 16:20 05/14/20 13:48 Roxicodone - PO 20 mg Q4H PRN Administration PAIN LEVEL 7 - 10 Pantoprazole Sodium 40 mg 05/09/20 16:45 05/14/20 09:48 Protonix - PO 40 mg DAILY [facility] Administration Pregabalin 50 mg 05/05/20 10:00 05/14/20 09:48 Lyrica - PO 50 mg DAILY [facility] Administration Rosuvastatin Calcium 20 mg 05/09/20 22:00 05/13/20 23:40 Crestor - PO 20 mg HS [facility] Administration Warfarin Sodium 5 mg 05/13/20 18:00 05/13/20 18:15 Coumadin - PO 5 mg DAILY@1800 [facility] Administration ASSESSMENT/PLAN: Problem List - Problems (1) Right humeral fracture Assessment/Plan: per ortho no surgical interventions. Continue with shoulder sling for 4 to 6 weeks after the injury. will need SNF/rehab after DC pending covid results Code(s): S42.301A - UNSP FRACTURE OF SHAFT OF HUMERUS, RIGHT ARM, INIT (2) Fracture of superior pubic ramus Assessment/Plan: ortho following WBAT LLE will need SNF/rehab after DC Code(s): S32.519A - FRACTURE OF SUPERIOR RIM OF UNSP PUBIS, INIT FOR CLOS FX (3) ESRD (end stage renal disease) Assessment/Plan: dialysis per renal on [facility] schedule Code(s): N18.6 - END STAGE RENAL DISEASE (4) AV block, 1st degree Assessment/Plan: PPM in place Code(s): I44.0 - ATRIOVENTRICULAR BLOCK, FIRST DEGREE (5) CVA (cerebral vascular accident) Assessment/Plan: history of CVA. PT ordered. Code(s): I63.9 - CEREBRAL INFARCTION, UNSPECIFIED (6) Chronic diastolic CHF (congestive heart failure), NYHA class 2 Assessment/Plan: on HD c/w lasix on off HD days daily weights strict I/Os Code(s): I50.32 - CHRONIC DIASTOLIC (CONGESTIVE) HEART FAILURE (7) Chronic ulcer of leg Assessment/Plan: chronic diabetic ulcers to LE BL followed by Dr Carson and Dr Velez Code(s): L97.909 - NON-PRS CHRONIC ULC UNSP PRT OF UNSP LOW LEG W UNSP SEVERITY (8) Head trauma Assessment/Plan: mental status at baseline. head ct moderate vol loss on head ct. no acute bleed seen Code(s): S09.90XA - UNSPECIFIED INJURY OF HEAD, INITIAL ENCOUNTER Qualifiers: Encounter type: initial encounter Qualified Code(s): S09.90XA - Unspecified injury of head, initial encounter (9) Atrial fibrillation Assessment/Plan: inr therapeutic continue coumadin Code(s): I48.91 - UNSPECIFIED ATRIAL FIBRILLATION (10) Congestive heart failure (CHF) Assessment/Plan: on lasix 80mg off dialysis days Code(s): I50.9 - HEART FAILURE, UNSPECIFIED Qualifiers: Heart failure type: other Qualified Code(s): I50.9 - Heart failure, unspecified (11) Diabetes mellitus Assessment/Plan: on novolog based on bgms Code(s): E11.9 - TYPE 2 DIABETES MELLITUS WITHOUT COMPLICATIONS Qualifiers: Diabetes mellitus type: type 2 Diabetes mellitus correction insulin use: with rodent exterminator use Diabetes mellitus complication status: with circulatory complication Diabetes mellitus complication detail: with peripheral angiopathy with gangrene Qualified Code(s): E11.52 - Type 2 diabetes mellitus with diabetic peripheral angiopathy with gangrene (12) Subtherapeutic international normalized ratio (INR) Assessment/Plan: on coumadin Code(s): R79.1 - ABNORMAL COAGULATION PROFILE (13) DVT prophylaxis Assessment/Plan: coumadin Code(s): Z29.9 - ENCOUNTER FOR PROPHYLACTIC MEASURES, UNSPECIFIED Visit type - Emergency Visit Emergency Visit: Yes ED Registration Date: 04/30/20 Care time: The patient presented to the Emergency Department on the above date and was hospitalized for further evaluation of their emergent condition. - New Patient This patient is new to me today: No - Critical Care Critical Care patient: No - Discharge Referral Referred to [facility] Med P.C.: No
[2020-05-14] MEDS: TETRAHYDROZOLINE HCL EYE DROPS OU SCH ×2 (16:39→22:25)
[2020-05-14] MEDS: WARFARIN NA 5 MG TABLET PO SCH (17:30)
[2020-05-14] MEDS: LIDOCAINE PATCH REMOVAL MC SCH (22:24)
[2020-05-14] MEDS: ISOSORBIDE MONONITRATE 30 MG TAB.SR.24H (FP) PO SCH (22:24)
[2020-05-14] MEDS: ROSUVASTATIN CA 20 MG TABLET (FP) PO SCH (22:24)
[2020-05-14] MEDS: MELATONIN 5 MG TABLETS PO SCH (22:24)
[2020-05-15] MEDS: oxyCODONE HCL 5 MG TABLET PO PRN ×4 (00:15→13:54)
[2020-05-15] MEDS: ACETAMINOPHEN 325 MG TABLET (FP) PO PRN ×2 (02:29→15:49)
[2020-05-15] MEDS: INSULIN SLIDING SCALE (NOVOLOG) 1 VIAL SQ SCH ×3 (07:08→16:29)
[2020-05-15 08:32] LABS: HEMATOCRIT 26.2 % (35.4-49); HEMOGLOBIN 8.1 GM/dL (11.7-16.9); MCH 31.3 pg (25.7-33.7); MCHC 31.2 g/dl (32.0-35.9); MEAN CELL VOLUME 100.6 fl (80-96); MEAN PLT VOLUME 9.2 fl (7.5-11.1); PLATELET COUNT 201 K/MM3 (134-434); RDW 19.2 % (11.9-15.9); WHITE BLOOD COUNT 8.1 K/mm3 (4.0-10.0)
[2020-05-15 10:01] LABS: ALBUMIN 2.9 g/dl (3.4-5.0); BILIRUBIN,TOTAL 0.4 mg/dL (0.2-1); BLOOD UREA NITROGEN 36.8 mg/dL (7-18); CALCIUM 8.5 mg/dL (8.5-10.1); MAGNESIUM 1.8 mg/dL (1.8-2.4); TOT PROT 5.5 g/dl (6.4-8.2)
[2020-05-15] MEDS ORDERED: EPOETIN ALFA 20,000 UNIT/1 ML VIAL IVPUSH ONE (11:15)
[2020-05-15] MEDS: FUROSEMIDE 40 MG TABLET (FP) PO SCH (13:47)
[2020-05-15] MEDS: LIDOCAINE 5% TOPICAL PATCH TP SCH (13:48)
[2020-05-15] MEDS: PREGABALIN 50 MG CAPSULE PO SCH (13:48)
[2020-05-15] MEDS: morphine SO4 SUSTAINED ACTING 30 MG TABLET.SA PO SCH (13:48)
[2020-05-15] MEDS: TETRAHYDROZOLINE HCL EYE DROPS OU SCH (13:49)
[2020-05-15] MEDS: PANTOPRAZOLE 40 MG TABLET PO SCH (13:49)
[2020-05-15] MEDS: CALCIUM 500MG/VIT-D 200 UNITS COMBO TABLET (FP) PO SCH (13:49)
[2020-05-15] MEDS ORDERED: TOBRAMYCIN 0.3% OPHTH SOLN 5 ML BOTTLE OU SCH (14:00)
--- NOTE | 2020-05-15 14:15 | PN ---
Progress Note, Physician History of Present Illness: Pt seen and examine at bedside. He is tolerating HD. He has right eye discomfort. - Current Medication List Current Medications: Active Medications Acetaminophen (Tylenol -) 650 mg PO Q6H PRN PRN Reason: FEVER Last Admin: 05/14/20 13:49 Dose: 650 mg Documented by: Acetaminophen (Tylenol -) 650 mg PO Q6H PRN PRN Reason: PAIN SCALE 1-3 Last Admin: 05/15/20 02:29 Dose: 650 mg Documented by: Calcium Carbonate/Cholecalciferol (Os-Immanuel 500+D -) 2 tab PO DAILY [facility] Last Admin: 05/15/20 13:49 Dose: 2 tab Documented by: Furosemide (Lasix -) 80 mg PO DAILY [facility] Last Admin: 05/15/20 13:47 Dose: 80 mg Documented by: Sodium Chloride (Normal Saline -) 250 mls @ 3,000 mls/hr IV PRN PRN PRN Reason: Hypotension during Dialysis Stop: 05/15/20 14:55 Insulin Aspart (Novolog Vial Sliding Scale -) 1 vial SQ [facility]; Protocol Last Admin: 05/15/20 13:08 Dose: Not Given Documented by: Isosorbide Mononitrate (Imdur -) 30 mg PO [facility] Last Admin: 05/14/20 22:24 Dose: 30 mg Documented by: Lidocaine (Lidoderm Patch -) 1 patch TP DAILY [facility] Last Admin: 05/15/20 13:48 Dose: 1 patch Documented by: Melatonin (Melatonin) 10 mg PO [facility] Last Admin: 05/14/20 22:24 Dose: 10 mg Documented by: Miscellaneous (Lidoderm Patch Removal) 1 each MC DAILY@2200 [facility] Last Admin: 05/14/20 22:24 Dose: 1 each Documented by: Morphine Sulfate (Ms Contin -) 30 mg PO BID [facility] Last Admin: 05/15/20 13:48 Dose: 30 mg Documented by: Oxycodone HCl (Roxicodone -) 20 mg PO Q4H PRN PRN Reason: PAIN LEVEL 7 - 10 Last Admin: 05/15/20 13:54 Dose: 20 mg Documented by: Pantoprazole Sodium (Protonix -) 40 mg PO DAILY [facility] Last Admin: 05/15/20 13:49 Dose: 40 mg Documented by: Pregabalin (Lyrica -) 50 mg PO DAILY [facility] Last Admin: 05/15/20 13:48 Dose: 50 mg Documented by: Rosuvastatin Calcium (Crestor -) 20 mg PO HS [facility] Last Admin: 05/14/20 22:24 Dose: 20 mg Documented by: Tetrahydrozoline HCl (Visine -) 1 drop OU BID [facility] Last Admin: 05/15/20 13:49 Dose: 1 drop Documented by: Tobramycin Sulfate (Tobrex Ophthalmic Solution -) 1 drop OU Q4HWA [facility] Warfarin Sodium (Coumadin -) 5 mg PO DAILY@1800 [facility] Last Admin: 05/14/20 17:30 Dose: 5 mg Documented by: - Objective Vital Signs: Vital Signs Temperature 98.0 F 05/15/20 09:07 Pulse Rate 68 05/15/20 12:15 Respiratory Rate 18 05/15/20 12:15 Blood Pressure 124/70 05/15/20 12:15 O2 Sat by Pulse Oximetry (%) 97 05/15/20 09:07 Constitutional: Yes: Calm Eyes: Yes: Conjunctiva Clear HENT: Yes: Atraumatic Neck: Yes: Supple Cardiovascular: Yes: S1, S2 Respiratory: Yes: CTA Bilaterally Gastrointestinal: Yes: Normal Bowel Sounds, Soft Genitourinary: Yes: WNL Musculoskeletal: Yes: Other (leg pain) Edema: No Neurological: Yes: Oriented Psychiatric: Yes: Oriented Labs: CBC, BMP 05/15/20 07:31 05/15/20 07:31 INR, PTT INR 2.52 (0.83-1.09) H 05/14/20 06:39 Problem List - Problems (1) ESRD on hemodialysis Code(s): N18.6 - END STAGE RENAL DISEASE; Z99.2 - DEPENDENCE ON RENAL DIALYSIS Assessment/Plan Current Medications Generic Name Dose Route Start Last Admin Trade Name Freq PRN Reason Stop Dose Admin Acetaminophen 650 mg 05/01/20 17:30 05/14/20 13:49 Tylenol - PO 650 mg Q6H PRN Administration FEVER Acetaminophen 650 mg 05/01/20 17:30 05/15/20 02:29 Tylenol - PO 650 mg Q6H PRN Administration PAIN SCALE 1-3 Calcium Carbonate/Cholecalciferol 2 tab 05/04/20 15:45 05/15/20 13:49 Os-Immanuel 500+D - PO 2 tab DAILY [facility] Administration Furosemide 80 mg 05/07/20 10:00 05/15/20 13:47 Lasix - PO 80 mg DAILY [facility] Administration Sodium Chloride 250 mls @ 3,000 mls/hr 05/14/20 14:55 Normal Saline - IV 05/15/20 14:55 PRN PRN Hypotension during Dialysis Insulin Aspart 1 vial 04/30/20 22:00 05/15/20 13:08 Novolog Vial Sliding Scale - SQ Not Given ACHS [facility] Protocol Isosorbide Mononitrate 30 mg 04/30/20 22:00 05/14/20 22:24 Imdur - PO 30 mg HS [facility] Administration Lidocaine 1 patch 05/04/20 15:45 05/15/20 13:48 Lidoderm Patch - TP 1 patch DAILY [facility] Administration Melatonin 10 mg 05/02/20 23:28 05/14/20 22:24 Melatonin PO 10 mg HS [facility] Administration Miscellaneous 1 each 05/04/20 22:00 05/14/20 22:24 Lidoderm Patch Removal MC 1 each DAILY@2200 [facility] Administration Morphine Sulfate 30 mg 04/30/20 22:00 05/15/20 13:48 Ms Contin - PO 30 mg BID [facility] Administration Oxycodone HCl 20 mg 05/10/20 16:20 05/15/20 13:54 Roxicodone - PO 20 mg Q4H PRN Administration PAIN LEVEL 7 - 10 Pantoprazole Sodium 40 mg 05/09/20 16:45 05/15/20 13:49 Protonix - PO 40 mg DAILY [facility] Administration Pregabalin 50 mg 05/05/20 10:00 05/15/20 13:48 Lyrica - PO 50 mg DAILY [facility] Administration Rosuvastatin Calcium 20 mg 05/09/20 22:00 05/14/20 22:24 Crestor - PO 20 mg HS [facility] Administration Tetrahydrozoline HCl 1 drop 05/14/20 15:29 05/15/20 13:49 Visine - OU 1 drop BID [facility] Administration Tobramycin Sulfate 1 drop 05/15/20 14:00 Tobrex Ophthalmic Solution - OU Q4HWA [facility] Warfarin Sodium 5 mg 05/13/20 18:00 05/14/20 17:30 Coumadin - PO 5 mg DAILY@1800 [facility] Administration Impression 1. ESRD 2. s/p fall 3. copd 4. chf 5. positive anti-histone ab 6. fluid overload 7. cva 8. anemia 9. conjunctivitis Plan - HD today - renal ultrasound - pending placement - epogen for anemia - monitor inr - can cont lasix on non HD days - fluid restriction with diet
--- NOTE | 2020-05-15 14:53 | PN ---
Physical Exam: SUBJECTIVE: Patient seen and examined in dialysis. OBJECTIVE: Received a call from Dr. Cobian that patient c/o of vision loss of right eye. on exam patient denies headaches, limb weakness, numbness/tinging or slurred speech patient reported to me that the vision of his right eye is "blurry" I called dr. Marie (opthomologist) and reported exam findings. Patient allowed me to FaceTime opthomologist via iphone to have Dr. Marie examine/evaluate right eye. After exam, Dr. Marie diagnosed patient with conjunctivitis of right eye and states blurry vision is common with this condition. patient will need contact precautions. ---- Patient is a 70 year old male with a significant past medical history of A-fib, HFrEF (EF 30-35%, Global LV Hypokinesis), CAD (S/P CABG), ischemic cardiomyopathy s/p PPM, 1st degree AV Block, CVA, COPD (on 4L Home O2), ESRD on HD (Makes minimal urine, on HD MWF), IDDM. Patient admitted on 04/30/2020 after sustaining ground level fall at home. States that he lost balance and fell backward. Hit his head on tiled floor. No blood loss. No LOC. Had pain on his Left arm and Left hip and could not get off of floor. patient sustained s/p fall: a left sided proximal humerus fracture, and nondisplaced inferior pubic ramus fracture. seen by ortho, no surgical interventions recommended, physical therapy recommended. patient is waiting for covid serology to result before going to rehab. ------ covid status: negative as per serology 05/04/2020. repeat pending before discharging to rehab Vital Signs Period Temp Pulse Resp BP Sys/Chandra Pulse Ox Last 24 Hr 97.6 F-98.6 F 54-71 18-20 106-146/53-88 94-98 GENERAL: The patient is awake, alert, and fully oriented, in no acute distress. HEAD: Normal with no signs of trauma. EYES: PERRL, extraocular movements intact, sclera anicteric, conjunctiva clear. No ptosis. ENT: Ears normal, nares patent, oropharynx clear without exudates, moist mucous membranes. NECK: Trachea midline, full range of motion, supple. HEART: Regular rate and rhythm ABDOMEN: Soft, nontender, nondistended, normoactive bowel sounds EXTREMITIES: a left sided proximal humerus fracture - skin with eccymosis - increased edema,negative for dvt NEUROLOGICAL: Normal speech, gait not observed. Laboratory Results - last 24 hr 05/14/20 05/14/20 05/14/20 16:25 16:49 22:23 WBC RBC Hgb Hct MCV MCH MCHC RDW Plt Count MPV Sodium Potassium Chloride Carbon Dioxide Anion Gap BUN Creatinine Est GFR (CKD-EPI)AfAm Est GFR (CKD-EPI)NonAf POC Glucometer 137 146 Random Glucose Calcium Magnesium Total Bilirubin AST ALT Alkaline Phosphatase Total Protein Albumin Blood Type AB POSITIVE Antibody Screen Negative Crossmatch See Detail 05/15/20 05/15/20 05/15/20 07:06 07:31 07:31 WBC 8.1 RBC 2.60 L Hgb 8.1 L Hct 26.2 L MCV 100.6 H MCH 31.3 MCHC 31.2 L RDW 19.2 H Plt Count 201 MPV 9.2 Sodium 138 Potassium 4.0 Chloride 102 Carbon Dioxide 32 Anion Gap 4 L BUN 36.8 H Creatinine 2.0 H Est GFR (CKD-EPI)AfAm 37.53 Est GFR (CKD-EPI)NonAf 32.38 POC Glucometer 97 Random Glucose 94 Calcium 8.5 Magnesium 1.8 Total Bilirubin 0.4 AST 13 L ALT 21 Alkaline Phosphatase 154 H Total Protein 5.5 L Albumin 2.9 L Blood Type Antibody Screen Crossmatch Active Medications Generic Name Dose Route Start Last Admin Trade Name Freq PRN Reason Stop Dose Admin Acetaminophen 650 mg 05/01/20 17:30 05/14/20 13:49 Tylenol - PO 650 mg Q6H PRN Administration FEVER Acetaminophen 650 mg 05/01/20 17:30 05/15/20 02:29 Tylenol - PO 650 mg Q6H PRN Administration PAIN SCALE 1-3 Calcium Carbonate/Cholecalciferol 2 tab 05/04/20 15:45 05/15/20 13:49 Os-Immanuel 500+D - PO 2 tab DAILY RADHA Administration Furosemide 80 mg 05/07/20 10:00 05/15/20 13:47 Lasix - PO 80 mg DAILY RADHA Administration Sodium Chloride 250 mls @ 3,000 mls/hr 05/14/20 14:55 Normal Saline - IV 05/15/20 14:55 PRN PRN Hypotension during Dialysis Insulin Aspart 1 vial 04/30/20 22:00 05/15/20 13:08 Novolog Vial Sliding Scale - SQ Not Given ACHS [facility] Protocol Isosorbide Mononitrate 30 mg 04/30/20 22:00 05/14/20 22:24 Imdur - PO 30 mg HS RADHA Administration Lidocaine 1 patch 05/04/20 15:45 05/15/20 13:48 Lidoderm Patch - TP 1 patch DAILY RADHA Administration Melatonin 10 mg 05/02/20 23:28 05/14/20 22:24 Melatonin PO 10 mg HS RADHA Administration Miscellaneous 1 each 05/04/20 22:00 05/14/20 22:24 Lidoderm Patch Removal MC 1 each DAILY@2200 RADHA Administration Morphine Sulfate 30 mg 04/30/20 22:00 05/15/20 13:48 Ms Contin - PO 30 mg BID RADHA Administration Oxycodone HCl 20 mg 05/10/20 16:20 05/15/20 13:54 Roxicodone - PO 20 mg Q4H PRN Administration PAIN LEVEL 7 - 10 Pantoprazole Sodium 40 mg 05/09/20 16:45 05/15/20 13:49 Protonix - PO 40 mg DAILY RADHA Administration Pregabalin 50 mg 05/05/20 10:00 05/15/20 13:48 Lyrica - PO 50 mg DAILY RADHA Administration Rosuvastatin Calcium 20 mg 05/09/20 22:00 05/14/20 22:24 Crestor - PO 20 mg HS RADHA Administration Tetrahydrozoline HCl 1 drop 05/14/20 15:29 05/15/20 13:49 Visine - OU 1 drop BID RADHA Administration Tobramycin Sulfate 1 drop 05/15/20 14:00 Tobrex Ophthalmic Solution - OU Q4HWA RADHA Warfarin Sodium 5 mg 05/13/20 18:00 05/14/20 17:30 Coumadin - PO 5 mg DAILY@1800 RADHA Administration ASSESSMENT/PLAN: Problem List - Problems (1) Conjunctivitis due to adenovirus, right eye Assessment/Plan: patient evaluated by ophthalmology on tobramycin drops q 4 for 7 days maintain contact precautions warm compresses to right eye Code(s): B30.1 - CONJUNCTIVITIS DUE TO ADENOVIRUS (2) Right humeral fracture Assessment/Plan: per ortho no surgical interventions. Continue with shoulder sling for 4 to 6 weeks after the injury. will need SNF/rehab after DC pending covid results Code(s): S42.301A - UNSP FRACTURE OF SHAFT OF HUMERUS, RIGHT ARM, INIT (3) Fracture of superior pubic ramus Assessment/Plan: ortho following WBAT LLE will need SNF/rehab after DC Code(s): S32.519A - FRACTURE OF SUPERIOR RIM OF UNSP PUBIS, INIT FOR CLOS FX (4) ESRD (end stage renal disease) Assessment/Plan: dialysis today Code(s): N18.6 - END STAGE RENAL DISEASE (5) AV block, 1st degree Assessment/Plan: PPM in place Code(s): I44.0 - ATRIOVENTRICULAR BLOCK, FIRST DEGREE (6) CVA (cerebral vascular accident) Assessment/Plan: history of CVA. PT ordered. Code(s): I63.9 - CEREBRAL INFARCTION, UNSPECIFIED (7) Chronic diastolic CHF (congestive heart failure), NYHA class 2 Assessment/Plan: on HD c/w lasix on off HD days daily weights strict I/Os Code(s): I50.32 - CHRONIC DIASTOLIC (CONGESTIVE) HEART FAILURE (8) Chronic ulcer of leg Assessment/Plan: chronic diabetic ulcers to LE BL followed by Dr Carson and Dr Velez Code(s): L97.909 - NON-PRS CHRONIC ULC UNSP PRT OF UNSP LOW LEG W UNSP SEVERITY (9) Head trauma Assessment/Plan: mental status at baseline. head ct moderate vol loss on head ct. no acute bleed seen Code(s): S09.90XA - UNSPECIFIED INJURY OF HEAD, INITIAL ENCOUNTER Qualifiers: Encounter type: initial encounter Qualified Code(s): S09.90XA - Unspecified injury of head, initial encounter (10) Atrial fibrillation Assessment/Plan: inr therapeutic continue coumadin Code(s): I48.91 - UNSPECIFIED ATRIAL FIBRILLATION (11) Congestive heart failure (CHF) Assessment/Plan: on lasix 80mg off dialysis days Code(s): I50.9 - HEART FAILURE, UNSPECIFIED Qualifiers: Heart failure type: other Qualified Code(s): I50.9 - Heart failure, unspecified (12) Diabetes mellitus Assessment/Plan: on novolog based on bgms Code(s): E11.9 - TYPE 2 DIABETES MELLITUS WITHOUT COMPLICATIONS Qualifiers: Diabetes mellitus type: type 2 Diabetes mellitus terminal operator insulin use: with terminal operator use Diabetes mellitus complication status: with circulatory complication Diabetes mellitus complication detail: with peripheral angiopathy with gangrene Qualified Code(s): E11.52 - Type 2 diabetes mellitus with diabetic peripheral angiopathy with gangrene (13) Subtherapeutic international normalized ratio (INR) Assessment/Plan: on coumadin. INR now therapeutic. Code(s): R79.1 - ABNORMAL COAGULATION PROFILE (14) DVT prophylaxis Assessment/Plan: coumadin Code(s): Z29.9 - ENCOUNTER FOR PROPHYLACTIC MEASURES, UNSPECIFIED Visit type - Emergency Visit Emergency Visit: Yes ED Registration Date: 04/30/20 Care time: The patient presented to the Emergency Department on the above date and was hospitalized for further evaluation of their emergent condition. - New Patient This patient is new to me today: No - Critical Care Critical Care patient: No - Discharge Referral Referred to [facility] No
[2020-05-15 15:02] VITALS: BP 160/82; PULSE 88; TEMP 98.9
--- NOTE | 2020-05-15 15:35 | DS ---
Physical Exam: SUBJECTIVE: Patient seen and examined Received a call from Dr. Cobian that patient c/o of vision loss of right eye. on exam patient denies headaches, limb weakness, numbness/tinging or slurred speech patient reported to me that the vision of his right eye is "blurry" I called dr. Marie (opthomologist) and reported exam findings. Patient allowed me to [facility] opthomologist via iphone to have Dr. Marie examine/evaluate right eye. After exam, Dr. Marie diagnosed patient with conjunctivitis of right eye and states blurry vision is common with this condition. patient will need contact precautions. ---- Patient is a 70 year old male with a significant past medical history of A-fib, HFrEF (EF 30-35%, Global LV Hypokinesis), CAD (S/P CABG), ischemic cardiomyopathy s/p PPM, 1st degree AV Block, CVA, COPD (on 4L Home O2), ESRD on HD (Makes minimal urine, on HD MWF), IDDM. Patient admitted on 04/30/2020 after sustaining ground level fall at home. States that he lost balance and fell backward. Hit his head on tiled floor. No blood loss. No LOC. Had pain on his Left arm and Left hip and could not get off of floor. patient sustained s/p fall: a left sided proximal humerus fracture, and nondisplaced inferior pubic ramus fracture. seen by ortho, no surgical interventions recommended, physical therapy recommended. patient is waiting for covid serology to result before going to rehab. ------ covid status: negative as per serology 05/04/2020. repeat covid negative Vital Signs Period Temp Pulse Resp BP Sys/Chandra Pulse Ox Last 24 Hr 97.6 F-98.9 F 54-88 18-20 106-160/53-88 94-98 PHYSICAL EXAM GENERAL: The patient is awake, alert, and fully oriented, in no acute distress. HEAD: Normal with no signs of trauma. EYES: PERRL, extraocular movements intact, sclera anicteric, conjunctiva clear. No ptosis. ENT: Ears normal, nares patent, oropharynx clear without exudates, moist mucous membranes. NECK: Trachea midline, full range of motion, supple. HEART: Regular rate and rhythm ABDOMEN: Soft, nontender, nondistended, normoactive bowel sounds EXTREMITIES: a left sided proximal humerus fracture - skin with eccymosis - increased edema,negative for dvt NEUROLOGICAL: Normal speech, gait not observed. LABS Laboratory Results - last 24 hr 05/13/20 05/14/20 05/14/20 11:25 16:25 16:49 WBC RBC Hgb Hct MCV MCH MCHC RDW Plt Count MPV Sodium Potassium Chloride Carbon Dioxide Anion Gap BUN Creatinine Est GFR (CKD-EPI)AfAm Est GFR (CKD-EPI)NonAf POC Glucometer 137 Random Glucose Calcium Magnesium Total Bilirubin AST ALT Alkaline Phosphatase Total Protein Albumin COVID-19 (DANIELA) Not detected Blood Type AB POSITIVE Antibody Screen Negative Crossmatch See Detail 05/14/20 05/15/20 05/15/20 22:23 07:06 07:31 WBC RBC Hgb Hct MCV MCH MCHC RDW Plt Count MPV Sodium 138 Potassium 4.0 Chloride 102 Carbon Dioxide 32 Anion Gap 4 L BUN 36.8 H Creatinine 2.0 H Est GFR (CKD-EPI)AfAm 37.53 Est GFR (CKD-EPI)NonAf 32.38 POC Glucometer 146 97 Random Glucose 94 Calcium 8.5 Magnesium 1.8 Total Bilirubin 0.4 AST 13 L ALT 21 Alkaline Phosphatase 154 H Total Protein 5.5 L Albumin 2.9 L COVID-19 (DANIELA) Blood Type Antibody Screen Crossmatch 05/15/20 07:31 WBC 8.1 RBC 2.60 L Hgb 8.1 L Hct 26.2 L MCV 100.6 H MCH 31.3 MCHC 31.2 L RDW 19.2 H Plt Count 201 MPV 9.2 Sodium Potassium Chloride Carbon Dioxide Anion Gap BUN Creatinine Est GFR (CKD-EPI)AfAm Est GFR (CKD-EPI)NonAf POC Glucometer Random Glucose Calcium Magnesium Total Bilirubin AST ALT Alkaline Phosphatase Total Protein Albumin COVID-19 (DANIELA) Blood Type Antibody Screen Crossmatch HOSPITAL COURSE: Date of Admission:04/30/20 Date of Discharge: 05/15/20 Minutes to complete discharge: 60 Discharge Summary Problems reviewed: Yes Reason For Visit: WEAKNESS OF BOTH LOWER EXTREMITIES FRACTURE OF NEC Current Active Problems AV block, 1st degree (Acute) COVID-19 ruled out (Acute) CVA (cerebral vascular accident) (Acute) Chronic diastolic CHF (congestive heart failure), NYHA class 2 (Acute) Chronic ulcer of leg (Acute) Conjunctivitis due to adenovirus, right eye (Acute) DVT prophylaxis (Acute) ESRD on hemodialysis (Acute) Fracture of superior pubic ramus (Acute) Head trauma (Acute) Humerus fracture (Acute) Ischemic cardiomyopathy (Acute) On home oxygen therapy (Acute) Pacemaker (Acute) Person under investigation for COVID-19 (Acute) Prophylactic measure (Acute) Right humeral fracture (Acute) Subtherapeutic international normalized ratio (INR) (Acute) Weakness (Acute) Condition: Good - Instructions Diet, Activity, Other Instructions: Discharge to Rehab today Continue all home medications as outlined in the discharge packet. PROBLEM LIST: Conjunctivitis due to adenovirus, right eye patient evaluated by ophthalmology on tobramycin drops q 4 for 7 days maintain contact precautions warm compresses to right eye Right humeral fracture per ortho no surgical interventions. Continue with shoulder sling for 4 to 6 weeks after the injury. will need SNF/rehab after DC pending covid results Fracture of superior pubic ramus ortho following WBAT LLE will need SNF/rehab after DC ESRD (end stage renal disease) dialysis F schedule Code(s): N18.6 - END STAGE RENAL DISEASE Atrial fibrillation inr therapeutic continue coumadin 5mg at bedtime Code(s): I48.91 - UNSPECIFIED ATRIAL FIBRILLATION Congestive heart failure (CHF) on lasix 80mg off dialysis days Referrals: Ramos Cobian MD [Staff Physician] - Vin Isbell MD [Primary Care Provider] - [facility] - Home Medications Comprehensive Discharge Medication List: Ambulatory Orders Rosuvastatin [Crestor -] 20 mg PO HS 04/15/19 Ferrous Sulfate 325 mg PO DAILY 04/20/20 Folic Acid 1 mg PO DAILY 04/20/20 Furosemide 80 mg PO DAILY 04/20/20 Isosorbide Mononitrate [Imdur -] 30 mg PO HS 04/20/20 Pantoprazole Sodium 40 mg PO DAILY 04/20/20 Morphine Sulfate [Morphine Sulfate ER] 30 mg PO BID 04/21/20 oxyCODONE HCL [Roxicodone -] 20 mg PO Q6H PRN 04/21/20 Sitagliptin Phosphate [Januvia] 50 mg PO DAILY #30 tablet 04/28/20 Calcium 500Mg/Vit-D 200 Units [Os-Immanuel 500+D -] 2 tab PO DAILY tab 05/15/20 Furosemide [Lasix -] 80 mg PO DAILY tablet 05/15/20 Insulin Sliding Scale [Novolog Vial Sliding Scale -] 1 vial SQ ACHS units 05/15/20 Isosorbide Mononitrate [Imdur -] 30 mg PO HS tab.sr.24h 05/15/20 Lidocaine 5% Patch [Lidoderm -] 1 patch TP DAILY patch 05/15/20 Morphine *Sr* [MS Contin -] 30 mg PO BID tablet.sa 05/15/20 Pregabalin [Lyrica -] 50 mg PO DAILY capsule 05/15/20 Tobramycin 0.3% Ophth Soln [Tobrex Ophthalmic Solution -] 1 drop OU Q4HWA drops 05/15/20 Warfarin Na [Coumadin -] 5 mg PO DAILY@1800 tablet 05/15/20 oxyCODONE HCL [Roxicodone -] 20 mg PO Q4H PRN tablet 05/15/20 Problem List - Problems (1) Conjunctivitis due to adenovirus, right eye Assessment/Plan: patient evaluated by ophthalmology on tobramycin drops q 4 for 7 days maintain contact precautions warm compresses to right eye Code(s): B30.1 - CONJUNCTIVITIS DUE TO ADENOVIRUS (2) Right humeral fracture Assessment/Plan: per ortho no surgical interventions. Continue with shoulder sling for 4 to 6 weeks after the injury. will need SNF/rehab after DC pending covid results Code(s): S42.301A - UNSP FRACTURE OF SHAFT OF HUMERUS, RIGHT ARM, INIT (3) Fracture of superior pubic ramus Assessment/Plan: ortho following WBAT LLE will need SNF/rehab after DC Code(s): S32.519A - FRACTURE OF SUPERIOR RIM OF UNSP PUBIS, INIT FOR CLOS FX (4) ESRD (end stage renal disease) Assessment/Plan: dialysis today Code(s): N18.6 - END STAGE RENAL DISEASE (5) AV block, 1st degree Assessment/Plan: PPM in place Code(s): I44.0 - ATRIOVENTRICULAR BLOCK, FIRST DEGREE (6) CVA (cerebral vascular accident) Assessment/Plan: history of CVA. PT ordered. Code(s): I63.9 - CEREBRAL INFARCTION, UNSPECIFIED (7) Chronic diastolic CHF (congestive heart failure), NYHA class 2 Assessment/Plan: on HD c/w lasix on off HD days daily weights strict I/Os Code(s): I50.32 - CHRONIC DIASTOLIC (CONGESTIVE) HEART FAILURE (8) Chronic ulcer of leg Assessment/Plan: chronic diabetic ulcers to LE BL followed by Dr Carson and Dr Velez Code(s): L97.909 - NON-PRS CHRONIC ULC UNSP PRT OF UNSP LOW LEG W UNSP SEVERITY (9) Head trauma Assessment/Plan: mental status at baseline. head ct moderate vol loss on head ct. no acute bleed seen Code(s): S09.90XA - UNSPECIFIED INJURY OF HEAD, INITIAL ENCOUNTER Qualifiers: Encounter type: initial encounter Qualified Code(s): S09.90XA - Unspecified injury of head, initial encounter (10) Atrial fibrillation Assessment/Plan: inr therapeutic continue coumadin Code(s): I48.91 - UNSPECIFIED ATRIAL FIBRILLATION (11) Congestive heart failure (CHF) Assessment/Plan: on lasix 80mg off dialysis days Code(s): I50.9 - HEART FAILURE, UNSPECIFIED Qualifiers: Heart failure type: other Qualified Code(s): I50.9 - Heart failure, unspecified (12) Diabetes mellitus Assessment/Plan: on novolog based on bgms Code(s): E11.9 - TYPE 2 DIABETES MELLITUS WITHOUT COMPLICATIONS Qualifiers: Diabetes mellitus type: type 2 Diabetes mellitus alf insulin use: with alf use Diabetes mellitus complication status: with circulatory complication Diabetes mellitus complication detail: with peripheral angiopathy with gangrene Qualified Code(s): E11.52 - Type 2 diabetes mellitus with diabetic peripheral angiopathy with gangrene (13) Subtherapeutic international normalized ratio (INR) Assessment/Plan: on coumadin. INR now therapeutic. Code(s): R79.1 - ABNORMAL COAGULATION PROFILE (14) DVT prophylaxis Assessment/Plan: coumadin Code(s): Z29.9 - ENCOUNTER FOR PROPHYLACTIC MEASURES, UNSPECIFIED This patient is new to me today: No Emergency Visit: Yes ED Registration Date: 04/30/20 Care time: The patient presented to the Emergency Department on the above date and was hospitalized for further evaluation of their emergent condition. Critical Care patient: No - Discharge Referral Referred to [facility] No
[2020-05-15] MEDS ORDERED: oxyCODONE HCL 5 MG TABLET PO ONE (18:32)
== END 2020-05-15 18:50 | DRG 535 ==
LOC: JER 11:26 → JERBED 17:31 → J6S 19:01
PROVIDERS: ADMIT Internal Medicine; ATTEND Nurse Practitioner Family
PROC: 5A1D70Z Performance of Urinary Filtration, Intermittent, Less than 6 Hours Per Day (ICD-10-PCS; principal; 2020-05-15)
PROC: 30233N1 Transfusion of Nonautologous Red Blood Cells into Peripheral Vein, Percutaneous Approach (ICD-10-PCS; 2020-05-15)
DX: S32.519A Fracture of superior rim of unspecified pubis, initial encounter for closed fracture (principal); N18.6 End stage renal disease; I50.22 Chronic systolic (congestive) heart failure; E11.52 Type 2 diabetes mellitus with diabetic peripheral angiopathy with gangrene; I25.5 Ischemic cardiomyopathy; J44.9 Chronic obstructive pulmonary disease, unspecified; E11.40 Type 2 diabetes mellitus with diabetic neuropathy, unspecified; E11.51 Type 2 diabetes mellitus with diabetic peripheral angiopathy without gangrene; L97.519 Non-pressure chronic ulcer of other part of right foot with unspecified severity; L97.529 Non-pressure chronic ulcer of other part of left foot with unspecified severity; I44.0 Atrioventricular block, first degree; B30.1 Conjunctivitis due to adenovirus; R79.1 Abnormal coagulation profile; I25.10 Atherosclerotic heart disease of native coronary artery without angina pectoris; Z95.1 Presence of aortocoronary bypass graft; E87.70 Fluid overload, unspecified; D64.9 Anemia, unspecified; W19.XXXA Unspecified fall, initial encounter; Y93.9 Activity, unspecified; Y92.89 Other specified places as the place of occurrence of the external cause; Y99.9 Unspecified external cause status; D72.829 Elevated white blood cell count, unspecified
CPT/HCPCS: 36415; 36430; 70450-TC; 71045-TC-FY; 72125-TC; 72170-TC-FY; 72192-TC; 73030-TC-LT-FY; 73060-TC-LT-FY; 73070-TC-LT-FY; 73090-TC-LT-FY; 73110-TC-LT-FY; 73130-TC-LT-FY; 73200-TC-RT; 80048; 80053; 81003; 82272; 82728; 82962; 83615; 83735; 84100; 85025; 85027; 85379; 85610; 85730; 86140; 86317; 86704; 86706; 86707; 86708; 86709; 86850; 86900; 86901; 86922; 87340; 87522; 90715; 93005; 93010; 93971; 97116-GP; 97162-GP; 99285-25; J0131; J0885; J1644; P9047; P9058; Q5106; U0003

== ENCOUNTER 2020-08-29 11:16 | Inpatient (IN) | payer OTHER ==
[2020-08-29] MEDS ORDERED: ACETAMINOPHEN 500 MG TABLET (FP) PO ONE (12:02)
[2020-08-29] MEDS ORDERED: ACETAMINOPHEN 325 MG TABLET (FP) ONE (12:25)
[2020-08-29 13:01] LABS: HEMATOCRIT 33.7 % (35.4-49); HEMOGLOBIN 10.5 GM/dL (11.7-16.9); MCH 28.1 pg (25.7-33.7); MCHC 31.2 g/dl (32.0-35.9); MEAN CELL VOLUME 90.2 fl (80-96); MEAN PLT VOLUME 8.7 fl (7.5-11.1); PLATELET COUNT 172 K/MM3 (134-434); RBC 3.74 M/mm3 (4.00-5.60); RDW 19.5 % (11.9-15.9); WHITE BLOOD COUNT 12.9 K/mm3 (4.0-10.0)
[2020-08-29 13:16] LABS: CALCIUM 8.2 mg/dL (8.5-10.1); POTASSIUM 3.2 mmol/L (3.5-5.1)
[2020-08-29 13:20] LABS: CREATININE 3.4 mg/dL (0.55-1.3)
[2020-08-29] MEDS ORDERED: POTASSIUM CHLORIDE ORAL LIQUID 20 MEQ/15 ML PO STA (13:51)
[2020-08-29] MEDS ORDERED: POTASSIUM CHLORIDE ORAL LIQUID 20 MEQ/15 ML ONE (14:02)
[2020-08-29] MEDS ORDERED: HEPARIN NA (PORCINE) 5,000 UNITS/ML 1ML VIAL ONE (15:09)
[2020-08-29] MEDS: HEPARIN NA (PORCINE) 5,000 UNITS/ML 1ML VIAL SQ SCH ×2 (15:11→18:02)
[2020-08-29] MEDS ORDERED: SODIUM CHLORIDE 250 ML IV PRN ×2 (15:12→15:13)
[2020-08-29] MEDS ORDERED: VANCOMYCIN 1,000 MG in DEXTROSE 5%-WATER - 250 ML IVPB ONE (15:12)
[2020-08-29] MEDS ORDERED: VANCOMYCIN 1 GRAM (PRE-DOCKED) 1,000 MG/250 ML BAG IVPB ONE (15:27)
[2020-08-29] MEDS ORDERED: PIPERACILLIN/TAZOB 2.25 GM 2.25 GM/50 ML BAG IVPB ONE (18:42)
[2020-08-29] MEDS: PIPERACILLIN/TAZOB 2.25 GM 2.25 GM in DEXTROSE 5%-WATER - 50 ML IVPB SCH (18:49)
[2020-08-29 20:15] LABS: ALBUMIN 3.3 g/dl (3.4-5.0)
[2020-08-29 20:19] LABS: BILIRUBIN,DIRECT 0.4 mg/dL (0.0-0.2)
[2020-08-29 20:21] LABS: BILIRUBIN,TOTAL 0.9 mg/dL (0.2-1); TOT PROT 7.2 g/dl (6.4-8.2)
[2020-08-29] MEDS ORDERED: MORPHINE SULFATE 2 MG/ML VIAL ONE (20:21)
[2020-08-29 20:22] LABS: PROTHROMBIN TIME (PATIENT) 89.8 SEC (9.7-13.0)
[2020-08-29] MEDS: MORPHINE SULFATE 2 MG/ML VIAL IVPUSH PRN (20:26)
[2020-08-29 20:27] LABS: INR 7.88 (0.83-1.09)
[2020-08-29] MEDS ORDERED: PHYTONADIONE 5 MG TABLET PO STA (20:34)
[2020-08-29] MEDS ORDERED: SENNOSIDES 8.6MG TABLET (FP) PO ONE (21:00)
[2020-08-29] MEDS ORDERED: ISOSORBIDE MONONITRATE 60 MG TAB.SR.24H (FP) PO ONE (21:00)
[2020-08-29] MEDS ORDERED: MELATONIN 5 MG TABLETS ONE (21:00)
[2020-08-29] MEDS ORDERED: PHYTONADIONE 5 MG TABLET ONE (21:00)
[2020-08-29] MEDS ORDERED: DOCUSATE SODIUM 100 MG CAPSULE (FP) PO ONE (21:01)
[2020-08-29] MEDS: DOCUSATE SODIUM 100 MG CAPSULE (FP) PO SCH (21:11)
[2020-08-29] MEDS: ROSUVASTATIN CA 10 MG TABLET (FP) PO SCH (21:11)
[2020-08-29] MEDS: ISOSORBIDE MONONITRATE 60 MG TAB.SR.24H (FP) PO SCH (21:12)
[2020-08-29] MEDS: SENNOSIDES 8.6MG TABLET (FP) PO SCH (21:12)
[2020-08-29] MEDS: MELATONIN 5 MG TABLETS PO SCH (21:12)
[2020-08-29] MEDS ORDERED: oxyCODONE HCL 5 MG TABLET ONE (21:14)
[2020-08-29] MEDS: oxyCODONE HCL 5 MG TABLET PO PRN (21:18)
[2020-08-29] MEDS ORDERED: morphine SO4 SUSTAINED ACTING 30 MG TABLET.SA PO SCH (22:00)
[2020-08-30] MEDS ORDERED: oxyCODONE HCL 5 MG TABLET ONE ×3 (01:30→08:35)
[2020-08-30] MEDS: oxyCODONE HCL 5 MG TABLET PO PRN ×3 (01:34→08:45)
[2020-08-30] MEDS ORDERED: PIPERACILLIN/TAZOB 2.25 GM 2.25 GM/50 ML BAG IVPB ONE (01:40)
[2020-08-30] MEDS: PIPERACILLIN/TAZOB 2.25 GM 2.25 GM in DEXTROSE 5%-WATER - 50 ML IVPB SCH ×3 (01:49→17:36)
[2020-08-30] MEDS ORDERED: MORPHINE SULFATE 2 MG/ML VIAL ONE (06:43)
[2020-08-30] MEDS: MORPHINE SULFATE 2 MG/ML VIAL IVPUSH PRN ×2 (06:48→11:51)
[2020-08-30 06:59] LABS: BASO % 0.6 % (0-2.0); EOS % 0.1 % (0-4.5); HEMATOCRIT 33.1 % (35.4-49); HEMOGLOBIN 10.4 GM/dL (11.7-16.9); LYMPH % 3.4 % (8-40); MCH 27.9 pg (25.7-33.7); MCHC 31.3 g/dl (32.0-35.9); MEAN PLT VOLUME 8.8 fl (7.5-11.1); MONO % 6.8 % (3.8-10.2); NEUT % 89.1 % (42.8-82.8); PLATELET COUNT 172 K/MM3 (134-434); RBC 3.72 M/mm3 (4.00-5.60); RDW 20.1 % (11.9-15.9); WHITE BLOOD COUNT 15.9 K/mm3 (4.0-10.0)
[2020-08-30 07:21] LABS: POTASSIUM 3.3 mmol/L (3.5-5.1)
[2020-08-30 07:26] LABS: ALBUMIN 2.6 g/dl (3.4-5.0); CALCIUM 8.7 mg/dL (8.5-10.1); MAGNESIUM 1.7 mg/dL (1.8-2.4)
[2020-08-30 07:28] LABS: CREATININE 2.6 mg/dL (0.55-1.3); PHOSPHOROUS 3.2 mg/dL (2.5-4.9)
[2020-08-30 07:30] LABS: BILIRUBIN,TOTAL 0.5 mg/dL (0.2-1); TOT PROT 6.2 g/dl (6.4-8.2)
[2020-08-30 07:40] LABS: BLOOD UREA NITROGEN 30.8 mg/dL (7-18)
[2020-08-30] MEDS ORDERED: PIPERACILLIN/TAZOB 3.375 GM 3.375 GM in DEXTROSE 5%-WATER - 50 ML IVPB ONE (08:58)
[2020-08-30 09:18] LABS: PROTHROMBIN TIME (PATIENT) 64.7 SEC (9.7-13.0)
[2020-08-30] MEDS ORDERED: PANTOPRAZOLE 40 MG TABLET ONE (09:23)
[2020-08-30] MEDS ORDERED: DOCUSATE SODIUM 100 MG CAPSULE (FP) PO ONE (09:23)
[2020-08-30] MEDS ORDERED: PIPERACILLIN/TAZOB 3.375 GM 3.375 GM/50 ML BAG IVPB ONE (09:24)
[2020-08-30] MEDS ORDERED: FOLIC ACID 1 MG TABLET (FP) ONE (09:24)
[2020-08-30] MEDS ORDERED: FERROUS SO4 325 MG TABLET (FP) ONE (09:24)
[2020-08-30] MEDS: FERROUS SO4 325 MG TABLET (FP) PO SCH (09:39)
[2020-08-30] MEDS: FOLIC ACID 1 MG TABLET (FP) PO SCH (09:39)
[2020-08-30] MEDS: DOCUSATE SODIUM 100 MG CAPSULE (FP) PO SCH ×2 (09:39→21:31)
[2020-08-30] MEDS: CALCIUM 500MG/VIT-D 200 UNITS COMBO TABLET (FP) PO SCH (09:39)
[2020-08-30] MEDS: PANTOPRAZOLE 40 MG TABLET PO SCH (09:39)
[2020-08-30 11:03] LABS: ANISOCYTOSIS 1+
[2020-08-30] MEDS ORDERED: DEXTROSE 5%-WATER - 50 ML IVPB ONE ×2 (11:49→17:21)
[2020-08-30] MEDS ORDERED: PIPERACILLIN/TAZOBACTAM 2.25 GM VIAL IVPB ONE ×2 (11:49→17:20)
[2020-08-30 13:00] LABS: INR 5.53 (0.83-1.09)
[2020-08-30] MEDS ORDERED: FUROSEMIDE 40 MG TABLET (FP) PO ONE (15:21)
[2020-08-30] MEDS: ACETAMINOPHEN 1000 MG/100 ML VIAL (NON FORMULARY) IVPB PRN ×2 (17:01→22:48)
[2020-08-30] MEDS: SENNOSIDES 8.6MG TABLET (FP) PO SCH (21:31)
[2020-08-30] MEDS: ISOSORBIDE MONONITRATE 60 MG TAB.SR.24H (FP) PO SCH (21:31)
[2020-08-30] MEDS: MELATONIN 5 MG TABLETS PO SCH (21:31)
[2020-08-30] MEDS: ROSUVASTATIN CA 10 MG TABLET (FP) PO SCH (21:31)
[2020-08-31] MEDS ORDERED: PIPERACILLIN/TAZOBACTAM 2.25 GM VIAL IVPB ONE ×4 (00:58→17:06)
[2020-08-31] MEDS ORDERED: DEXTROSE 5%-WATER - 50 ML IVPB ONE ×4 (00:58→17:06)
[2020-08-31] MEDS: PIPERACILLIN/TAZOB 2.25 GM 2.25 GM in DEXTROSE 5%-WATER - 50 ML IVPB SCH ×3 (01:02→18:19)
[2020-08-31] MEDS ORDERED: FUROSEMIDE 40 MG TABLET (FP) PO SCH (10:00)
[2020-08-31] MEDS: oxyCODONE HCL 5 MG TABLET PO PRN ×3 (10:07→21:26)
[2020-08-31] MEDS: ACETAMINOPHEN 1000 MG/100 ML VIAL (NON FORMULARY) IVPB PRN (10:08)
[2020-08-31] MEDS: DOCUSATE SODIUM 100 MG CAPSULE (FP) PO SCH ×3 (11:03→21:31)
[2020-08-31] MEDS: CALCIUM 500MG/VIT-D 200 UNITS COMBO TABLET (FP) PO SCH (11:03)
[2020-08-31] MEDS: FOLIC ACID 1 MG TABLET (FP) PO SCH (11:03)
[2020-08-31] MEDS: PANTOPRAZOLE 40 MG TABLET PO SCH (11:03)
[2020-08-31] MEDS: FERROUS SO4 325 MG TABLET (FP) PO SCH (11:03)
[2020-08-31 11:08] LABS: INR 2.37 (0.83-1.09)
[2020-08-31 11:36] LABS: CALCIUM 7.9 mg/dL (8.5-10.1)
[2020-08-31 11:37] LABS: BLOOD UREA NITROGEN 39.7 mg/dL (7-18)
[2020-08-31 11:40] LABS: CREATININE 3.5 mg/dL (0.55-1.3)
[2020-08-31] MEDS ORDERED: POTASSIUM CHLORIDE TABS 20 MEQ TABLET.ER (FP) PO ONE (14:03)
[2020-08-31 20:10] LABS: HEP B CORE AB, TOT Negative (Negative)
[2020-08-31] MEDS: ISOSORBIDE MONONITRATE 60 MG TAB.SR.24H (FP) PO SCH (21:24)
[2020-08-31] MEDS: ROSUVASTATIN CA 10 MG TABLET (FP) PO SCH (21:24)
[2020-08-31] MEDS: MELATONIN 5 MG TABLETS PO SCH (21:25)
[2020-08-31] MEDS: SENNOSIDES 8.6MG TABLET (FP) PO SCH ×2 (21:25→21:31)
[2020-09-01] MEDS ORDERED: PIPERACILLIN/TAZOBACTAM 2.25 GM VIAL IVPB ONE ×3 (01:34→16:46)
[2020-09-01] MEDS ORDERED: DEXTROSE 5%-WATER - 50 ML IVPB ONE ×3 (01:35→16:46)
[2020-09-01] MEDS: oxyCODONE HCL 5 MG TABLET PO PRN ×4 (01:37→13:53)
[2020-09-01] MEDS: PIPERACILLIN/TAZOB 2.25 GM 2.25 GM in DEXTROSE 5%-WATER - 50 ML IVPB SCH ×3 (01:37→17:18)
[2020-09-01 06:59] LABS: HEMATOCRIT 30.7 % (35.4-49); HEMOGLOBIN 9.5 GM/dL (11.7-16.9); MEAN CELL VOLUME 90.3 fl (80-96); MEAN PLT VOLUME 8.8 fl (7.5-11.1); PLATELET COUNT 174 K/MM3 (134-434); RDW 19.8 % (11.9-15.9); WHITE BLOOD COUNT 11.3 K/mm3 (4.0-10.0)
[2020-09-01 07:25] LABS: POTASSIUM 3.3 mmol/L (3.5-5.1)
[2020-09-01 07:32] LABS: CALCIUM 8.2 mg/dL (8.5-10.1)
[2020-09-01 07:33] LABS: ALBUMIN 2.4 g/dl (3.4-5.0); BLOOD UREA NITROGEN 45.8 mg/dL (7-18); MAGNESIUM 1.7 mg/dL (1.8-2.4)
[2020-09-01 07:35] LABS: INR 1.93 (0.83-1.09); PROTHROMBIN TIME (PATIENT) 22.9 SEC (9.7-13.0)
[2020-09-01 07:36] LABS: BILIRUBIN,TOTAL 0.6 mg/dL (0.2-1); CREATININE 3.8 mg/dL (0.55-1.3); PHOSPHOROUS 3.5 mg/dL (2.5-4.9)
[2020-09-01 07:37] LABS: TOT PROT 5.9 g/dl (6.4-8.2)
[2020-09-01] MEDS: FOLIC ACID 1 MG TABLET (FP) PO SCH (09:45)
[2020-09-01] MEDS: DOCUSATE SODIUM 100 MG CAPSULE (FP) PO SCH ×2 (09:45→22:12)
[2020-09-01] MEDS: FERROUS SO4 325 MG TABLET (FP) PO SCH (09:45)
[2020-09-01] MEDS: CALCIUM 500MG/VIT-D 200 UNITS COMBO TABLET (FP) PO SCH (09:45)
[2020-09-01] MEDS: PANTOPRAZOLE 40 MG TABLET PO SCH (09:45)
[2020-09-01] MEDS ORDERED: SODIUM CHLORIDE 250 ML IV PRN ×2 (14:33→20:55)
[2020-09-01] MEDS ORDERED: HEPARIN NA (PORCINE) 5,000 UNITS/ML 1ML VIAL ONE ×2 (15:12→18:50)
[2020-09-01] MEDS ORDERED: LIDOCAINE HCL 1%, 10 MG/ML (20ML VIAL) ONE ×2 (15:13→18:50)
[2020-09-01] MEDS ORDERED: MIDAZOLAM HCL 2 MG/2 ML SINGLE DOSE VIAL ONE (19:17)
[2020-09-01] MEDS ORDERED: HEPARIN NA (PORCINE) 1,000 UNITS/ML 10ML M-D VIAL SQ ONE (19:37)
[2020-09-01] MEDS ORDERED: LIDOCAINE HCL 1%, 10 MG/ML (20ML VIAL) NR ONE (19:37)
[2020-09-01] MEDS ORDERED: ONDANSETRON 4 MG/2 ML VIAL IVPUSH PRN ×2 (20:00→20:55)
[2020-09-01] MEDS: ROSUVASTATIN CA 10 MG TABLET (FP) PO SCH (22:12)
[2020-09-01] MEDS: ISOSORBIDE MONONITRATE 60 MG TAB.SR.24H (FP) PO SCH (22:13)
[2020-09-01] MEDS: SENNOSIDES 8.6MG TABLET (FP) PO SCH (22:13)
[2020-09-01] MEDS: MELATONIN 5 MG TABLETS PO SCH (22:13)
[2020-09-02] MEDS ORDERED: PIPERACILLIN/TAZOBACTAM 2.25 GM VIAL IVPB ONE ×3 (00:28→16:24)
[2020-09-02] MEDS ORDERED: DEXTROSE 5%-WATER - 50 ML IVPB ONE ×3 (00:28→16:24)
[2020-09-02] MEDS: PIPERACILLIN/TAZOB 2.25 GM 2.25 GM in DEXTROSE 5%-WATER - 50 ML IVPB SCH ×3 (01:00→17:55)
[2020-09-02] MEDS: oxyCODONE HCL 5 MG TABLET PO PRN ×6 (01:32→20:52)
[2020-09-02 07:32] LABS: HEMATOCRIT 30.3 % (35.4-49); HEMOGLOBIN 9.2 GM/dL (11.7-16.9); MCH 27.8 pg (25.7-33.7); MCHC 30.5 g/dl (32.0-35.9); MEAN CELL VOLUME 91.4 fl (80-96); PLATELET COUNT 177 K/MM3 (134-434); RBC 3.32 M/mm3 (4.00-5.60); WHITE BLOOD COUNT 11.8 K/mm3 (4.0-10.0)
[2020-09-02 08:48] LABS: POTASSIUM 3.4 mmol/L (3.5-5.1)
[2020-09-02 09:03] LABS: ALBUMIN 2.3 g/dl (3.4-5.0); BLOOD UREA NITROGEN 50.8 mg/dL (7-18); CALCIUM 8.4 mg/dL (8.5-10.1)
[2020-09-02 09:05] LABS: CREATININE 3.5 mg/dL (0.55-1.3)
[2020-09-02 09:07] LABS: BILIRUBIN,TOTAL 0.5 mg/dL (0.2-1); TOT PROT 5.7 g/dl (6.4-8.2)
[2020-09-02] MEDS: PANTOPRAZOLE 40 MG TABLET PO SCH (09:40)
[2020-09-02] MEDS: CALCIUM 500MG/VIT-D 200 UNITS COMBO TABLET (FP) PO SCH (09:40)
[2020-09-02] MEDS: FOLIC ACID 1 MG TABLET (FP) PO SCH (09:41)
[2020-09-02] MEDS: DOCUSATE SODIUM 100 MG CAPSULE (FP) PO SCH ×2 (09:41→21:09)
[2020-09-02] MEDS: FERROUS SO4 325 MG TABLET (FP) PO SCH (09:41)
[2020-09-02] MEDS ORDERED: morphine CARPU-JECT 8 MG/1 ML DISP.SYRIN IVPUSH PRN (12:45)
[2020-09-02] MEDS ORDERED: EPOETIN ALFA-EPBX 3,000 UNIT/ML VIAL IVPUSH ONE ×2 (13:45→14:33)
[2020-09-02] MEDS: ROSUVASTATIN CA 10 MG TABLET (FP) PO SCH (21:06)
[2020-09-02] MEDS: ISOSORBIDE MONONITRATE 60 MG TAB.SR.24H (FP) PO SCH (21:08)
[2020-09-02] MEDS: MELATONIN 5 MG TABLETS PO SCH (21:08)
[2020-09-02] MEDS: SENNOSIDES 8.6MG TABLET (FP) PO SCH (21:09)
[2020-09-03] MEDS ORDERED: PIPERACILLIN/TAZOBACTAM 2.25 GM VIAL IVPB ONE ×3 (01:06→17:08)
[2020-09-03] MEDS ORDERED: DEXTROSE 5%-WATER - 50 ML IVPB ONE ×3 (01:06→17:09)
[2020-09-03] MEDS: PIPERACILLIN/TAZOB 2.25 GM 2.25 GM in DEXTROSE 5%-WATER - 50 ML IVPB SCH ×3 (01:10→17:26)
[2020-09-03] MEDS: oxyCODONE HCL 5 MG TABLET PO PRN ×5 (01:18→21:53)
[2020-09-03 06:52] LABS: HEMATOCRIT 29.7 % (35.4-49); HEMOGLOBIN 9.1 GM/dL (11.7-16.9); MCH 27.9 pg (25.7-33.7); MCHC 30.7 g/dl (32.0-35.9); MEAN CELL VOLUME 90.8 fl (80-96); MEAN PLT VOLUME 8.5 fl (7.5-11.1); PLATELET COUNT 207 K/MM3 (134-434); RBC 3.27 M/mm3 (4.00-5.60); RDW 19.6 % (11.9-15.9); WHITE BLOOD COUNT 12.3 K/mm3 (4.0-10.0)
[2020-09-03] MEDS ORDERED: LEVOTHYROXINE NA 25 MCG TABLET (FP) PO SCH (07:00)
[2020-09-03 07:10] LABS: INR 1.63 (0.83-1.09); PROTHROMBIN TIME (PATIENT) 19.4 SEC (9.7-13.0)
[2020-09-03 07:13] LABS: ACTIVATED PTT 29.8 SECONDS (25.2-36.5)
[2020-09-03 07:19] LABS: POTASSIUM 3.6 mmol/L (3.5-5.1)
[2020-09-03 07:52] LABS: ALBUMIN 2.3 g/dl (3.4-5.0); CALCIUM 8.6 mg/dL (8.5-10.1); MAGNESIUM 1.8 mg/dL (1.8-2.4)
[2020-09-03 07:55] LABS: CREATININE 2.3 mg/dL (0.55-1.3); PHOSPHOROUS 2.5 mg/dL (2.5-4.9)
[2020-09-03 07:57] LABS: TOT PROT 5.9 g/dl (6.4-8.2)
[2020-09-03 07:58] LABS: BILIRUBIN,TOTAL 0.8 mg/dL (0.2-1)
[2020-09-03] MEDS ORDERED: DAPTOMYCIN 500 MG in SODIUM CHLORIDE 50 ML IVPB ONE (10:00)
[2020-09-03] MEDS ORDERED: LINEZOLID 600 MG PREMIX BAG 600 MG/300 ML BAG IVPB ONE (10:00)
[2020-09-03] MEDS: PANTOPRAZOLE 40 MG TABLET PO SCH (10:08)
[2020-09-03] MEDS: CALCIUM 500MG/VIT-D 200 UNITS COMBO TABLET (FP) PO SCH (10:08)
[2020-09-03] MEDS: FOLIC ACID 1 MG TABLET (FP) PO SCH (10:09)
[2020-09-03] MEDS: MORPHINE SULFATE 2 MG/ML VIAL IVPUSH PRN ×2 (10:09→13:33)
[2020-09-03] MEDS: FERROUS SO4 325 MG TABLET (FP) PO SCH (10:09)
[2020-09-03] MEDS: DOCUSATE SODIUM 100 MG CAPSULE (FP) PO SCH ×2 (10:09→21:53)
[2020-09-03] MEDS ORDERED: PT OWN MED DRAWER 7, Y5N ONE (13:20)
[2020-09-03] MEDS: HEPARIN - 25,000 UNIT in SODIUM CHLORIDE 495 ML IV SCH (13:22)
[2020-09-03] MEDS ORDERED: SODIUM CHLORIDE 250 ML IV PRN (13:28)
[2020-09-03] MEDS: VANCOMYCIN 1 GRAM (PRE-DOCKED) 1,000 MG/250 ML BAG IVPB ONE ×2 (17:33→19:24)
[2020-09-03] MEDS ORDERED: WARFARIN NA 3 MG TABLET PO SCH (18:00)
[2020-09-03] MEDS: ISOSORBIDE MONONITRATE 60 MG TAB.SR.24H (FP) PO SCH (21:52)
[2020-09-03] MEDS: ROSUVASTATIN CA 10 MG TABLET (FP) PO SCH (21:52)
[2020-09-03] MEDS: MELATONIN 5 MG TABLETS PO SCH (21:52)
[2020-09-03] MEDS: SENNOSIDES 8.6MG TABLET (FP) PO SCH (21:53)
[2020-09-03] MEDS ORDERED: HEPARIN NA (PORCINE) 5,000 UNITS/ML 1ML VIAL IVPUSH PRN (23:20)
[2020-09-04] MEDS ORDERED: PIPERACILLIN/TAZOBACTAM 2.25 GM VIAL IVPB ONE ×7 (01:05→23:12)
[2020-09-04] MEDS ORDERED: DEXTROSE 5%-WATER - 50 ML IVPB ONE ×6 (01:05→23:13)
[2020-09-04] MEDS: PIPERACILLIN/TAZOB 2.25 GM 2.25 GM in DEXTROSE 5%-WATER - 50 ML IVPB SCH ×3 (01:20→17:44)
[2020-09-04] MEDS: oxyCODONE HCL 5 MG TABLET PO PRN ×5 (02:30→20:11)
[2020-09-04 06:35] LABS: HEMATOCRIT 25.8 % (35.4-49); MCH 28.3 pg (25.7-33.7); MCHC 31.2 g/dl (32.0-35.9); MEAN CELL VOLUME 90.9 fl (80-96); MEAN PLT VOLUME 8.6 fl (7.5-11.1); PLATELET COUNT 209 K/MM3 (134-434); RBC 2.84 M/mm3 (4.00-5.60); WHITE BLOOD COUNT 12.2 K/mm3 (4.0-10.0)
[2020-09-04] MEDS: MORPHINE SULFATE 2 MG/ML VIAL IVPUSH PRN ×3 (07:50→21:49)
[2020-09-04 07:55] LABS: ALBUMIN 2.2 g/dl (3.4-5.0); BILIRUBIN,TOTAL 0.7 mg/dL (0.2-1); CALCIUM 7.9 mg/dL (8.5-10.1); CREATININE 3.1 mg/dL (0.55-1.3); MAGNESIUM 1.6 mg/dL (1.8-2.4); PHOSPHOROUS 2.4 mg/dL (2.5-4.9); POTASSIUM 3.7 mmol/L (3.5-5.1); TOT PROT 5.5 g/dl (6.4-8.2)
[2020-09-04] MEDS: CALCIUM 500MG/VIT-D 200 UNITS COMBO TABLET (FP) PO SCH (09:21)
[2020-09-04] MEDS: PANTOPRAZOLE 40 MG TABLET PO SCH (09:21)
[2020-09-04] MEDS: DOCUSATE SODIUM 100 MG CAPSULE (FP) PO SCH ×2 (09:21→21:52)
[2020-09-04] MEDS: FERROUS SO4 325 MG TABLET (FP) PO SCH (09:21)
[2020-09-04] MEDS: FOLIC ACID 1 MG TABLET (FP) PO SCH (09:21)
[2020-09-04 12:04] LABS: INR 1.62 (0.83-1.09); PROTHROMBIN TIME (PATIENT) 19.3 SEC (9.7-13.0)
[2020-09-04] MEDS ORDERED: EPOETIN ALFA-EPBX 4,000 UNIT/ML VIAL IVPUSH ONE (12:30)
[2020-09-04] MEDS: HEPARIN - 25,000 UNIT in SODIUM CHLORIDE 495 ML IV SCH (12:51)
[2020-09-04 16:11] VITALS: BMI 27.5
[2020-09-04] MEDS ORDERED: LIDOCAINE HCL 2% (20ML MULTI-DOSE VIAL) ONE (16:14)
[2020-09-04] MEDS ORDERED: MAGNESIUM SULF 50% (8.12 MEQ/2 ML-1 GM VIAL) IVPB ONE (17:26)
[2020-09-04] MEDS: ISOSORBIDE MONONITRATE 60 MG TAB.SR.24H (FP) PO SCH (21:51)
[2020-09-04] MEDS: MELATONIN 5 MG TABLETS PO SCH (21:51)
[2020-09-04] MEDS: ROSUVASTATIN CA 10 MG TABLET (FP) PO SCH (21:51)
[2020-09-04] MEDS: SENNOSIDES 8.6MG TABLET (FP) PO SCH (21:52)
[2020-09-04] MEDS ORDERED: oxyCODONE HCL 5 MG TABLET PO ONE (23:18)
[2020-09-05] MEDS: PIPERACILLIN/TAZOB 2.25 GM 2.25 GM in DEXTROSE 5%-WATER - 50 ML IVPB SCH ×3 (01:27→17:43)
[2020-09-05] MEDS: oxyCODONE HCL 5 MG TABLET PO PRN ×4 (05:35→23:22)
[2020-09-05] MEDS: HEPARIN - 25,000 UNIT in SODIUM CHLORIDE 495 ML IV SCH ×2 (05:36→11:50)
[2020-09-05 06:54] LABS: HEMATOCRIT 25.6 % (35.4-49); HEMOGLOBIN 8.1 GM/dL (11.7-16.9); MCH 28.7 pg (25.7-33.7); MCHC 31.5 g/dl (32.0-35.9); MEAN CELL VOLUME 90.9 fl (80-96); MEAN PLT VOLUME 8.6 fl (7.5-11.1); PLATELET COUNT 236 K/MM3 (134-434); RBC 2.81 M/mm3 (4.00-5.60); RDW 19.8 % (11.9-15.9); WHITE BLOOD COUNT 10.9 K/mm3 (4.0-10.0)
[2020-09-05 08:17] LABS: ALBUMIN 2.2 g/dl (3.4-5.0); BILIRUBIN,TOTAL 0.7 mg/dL (0.2-1); BLOOD UREA NITROGEN 15.1 mg/dL (7-18); CALCIUM 8.3 mg/dL (8.5-10.1); CREATININE 2.3 mg/dL (0.55-1.3); POTASSIUM 3.6 mmol/L (3.5-5.1); TOT PROT 5.6 g/dl (6.4-8.2)
[2020-09-05] MEDS ORDERED: PIPERACILLIN/TAZOBACTAM 2.25 GM VIAL IVPB ONE ×3 (08:19→23:18)
[2020-09-05] MEDS ORDERED: DEXTROSE 5%-WATER - 50 ML IVPB ONE ×3 (08:19→23:18)
[2020-09-05] MEDS: HEPARIN NA (PORCINE) 5,000 UNITS/ML 1ML VIAL IVPUSH PRN (08:25)
[2020-09-05] MEDS: DOCUSATE SODIUM 100 MG CAPSULE (FP) PO SCH ×2 (09:01→21:08)
[2020-09-05] MEDS: FERROUS SO4 325 MG TABLET (FP) PO SCH (09:03)
[2020-09-05] MEDS: PANTOPRAZOLE 40 MG TABLET PO SCH (09:03)
[2020-09-05] MEDS: FOLIC ACID 1 MG TABLET (FP) PO SCH (09:03)
[2020-09-05] MEDS: CALCIUM 500MG/VIT-D 200 UNITS COMBO TABLET (FP) PO SCH (09:03)
[2020-09-05] MEDS: MORPHINE SULFATE 2 MG/ML VIAL IVPUSH PRN ×3 (10:13→21:09)
[2020-09-05] MEDS ORDERED: WATER IVPB SCH (12:00)
[2020-09-05] MEDS ORDERED: DEXTROSE 5% IVPB SCH (12:00)
[2020-09-05] MEDS ORDERED: ACYCLOVIR IVPB SCH (12:00)
[2020-09-05] MEDS ORDERED: ACYCLOVIR INJECTION 800 MG in DEXTROSE 5%-WATER - 250 ML IVPB SCH ×2 (13:15→14:48)
[2020-09-05] MEDS: ACYCLOVIR INJECTION 800 MG in DEXTROSE 5%-WATER - 250 ML IVPB SCH (15:49)
[2020-09-05] MEDS: ISOSORBIDE MONONITRATE 60 MG TAB.SR.24H (FP) PO SCH (21:09)
[2020-09-05] MEDS: ROSUVASTATIN CA 10 MG TABLET (FP) PO SCH (21:09)
[2020-09-05] MEDS: SENNOSIDES 8.6MG TABLET (FP) PO SCH (21:09)
[2020-09-05] MEDS: MELATONIN 5 MG TABLETS PO SCH (21:09)
[2020-09-06] MEDS: HEPARIN NA (PORCINE) 5,000 UNITS/ML 1ML VIAL IVPUSH PRN
[2020-09-06] MEDS: PIPERACILLIN/TAZOB 2.25 GM 2.25 GM in DEXTROSE 5%-WATER - 50 ML IVPB SCH ×3 (01:00→21:04)
[2020-09-06] MEDS: MORPHINE SULFATE 2 MG/ML VIAL IVPUSH PRN ×3 (01:41→21:01)
[2020-09-06] MEDS: ACYCLOVIR INJECTION 800 MG in DEXTROSE 5%-WATER - 250 ML IVPB SCH ×2 (02:08→14:20)
[2020-09-06] MEDS: oxyCODONE HCL 5 MG TABLET PO PRN ×5 (04:41→22:13)
[2020-09-06 08:00] LABS: HEMATOCRIT 24.6 % (35.4-49); HEMOGLOBIN 7.6 GM/dL (11.7-16.9); MCH 28.2 pg (25.7-33.7); MCHC 30.9 g/dl (32.0-35.9); MEAN CELL VOLUME 91.2 fl (80-96); MEAN PLT VOLUME 8.4 fl (7.5-11.1); PLATELET COUNT 251 K/MM3 (134-434); RDW 19.9 % (11.9-15.9)
[2020-09-06] MEDS ORDERED: PIPERACILLIN/TAZOBACTAM 2.25 GM VIAL IVPB ONE ×2 (08:49→20:16)
[2020-09-06] MEDS ORDERED: DEXTROSE 5%-WATER - 50 ML IVPB ONE ×2 (08:49→20:16)
[2020-09-06] MEDS: FOLIC ACID 1 MG TABLET (FP) PO SCH (08:59)
[2020-09-06] MEDS: FERROUS SO4 325 MG TABLET (FP) PO SCH (08:59)
[2020-09-06] MEDS: CALCIUM 500MG/VIT-D 200 UNITS COMBO TABLET (FP) PO SCH (08:59)
[2020-09-06] MEDS: PANTOPRAZOLE 40 MG TABLET PO SCH (08:59)
[2020-09-06] MEDS: DOCUSATE SODIUM 100 MG CAPSULE (FP) PO SCH ×2 (09:00→22:11)
[2020-09-06] MEDS: HEPARIN - 25,000 UNIT in SODIUM CHLORIDE 495 ML IV SCH ×2 (10:03)
[2020-09-06] MEDS ORDERED: FUROSEMIDE 40 MG/4 ML INJECTABLE VIAL IVPUSH ONE ×2 (12:15→21:15)
[2020-09-06 13:27] LABS: BASO % 1.1 % (0-2.0); EOS % 0.3 % (0-4.5); HEMATOCRIT 24.3 % (35.4-49); HEMOGLOBIN 7.5 GM/dL (11.7-16.9); MCH 28.2 pg (25.7-33.7); MCHC 30.8 g/dl (32.0-35.9); MEAN CELL VOLUME 91.6 fl (80-96); MEAN PLT VOLUME 8.4 fl (7.5-11.1); MONO % 9.3 % (3.8-10.2); NEUT % 85.3 % (42.8-82.8); PLATELET COUNT 242 K/MM3 (134-434); RBC 2.65 M/mm3 (4.00-5.60); RDW 19.7 % (11.9-15.9); WHITE BLOOD COUNT 14.1 K/mm3 (4.0-10.0)
[2020-09-06 14:19] LABS: ANISOCYTOSIS 1+; MACROCYTOSIS 0; PLATELET ESTIMATE NORMAL
[2020-09-06] MEDS: ISOSORBIDE MONONITRATE 60 MG TAB.SR.24H (FP) PO SCH (21:13)
[2020-09-06] MEDS: ROSUVASTATIN CA 10 MG TABLET (FP) PO SCH (21:13)
[2020-09-06] MEDS: MELATONIN 5 MG TABLETS PO SCH (21:13)
[2020-09-06] MEDS: SENNOSIDES 8.6MG TABLET (FP) PO SCH (22:11)
[2020-09-07] MEDS: MORPHINE SULFATE 2 MG/ML VIAL IVPUSH PRN ×3 (00:05→22:28)
[2020-09-07] MEDS ORDERED: PIPERACILLIN/TAZOBACTAM 2.25 GM VIAL IVPB ONE ×3 (00:13→16:09)
[2020-09-07] MEDS ORDERED: DEXTROSE 5%-WATER - 50 ML IVPB ONE ×3 (00:13→16:09)
[2020-09-07] MEDS: PIPERACILLIN/TAZOB 2.25 GM 2.25 GM in DEXTROSE 5%-WATER - 50 ML IVPB SCH ×3 (02:10→21:00)
[2020-09-07] MEDS: ACYCLOVIR INJECTION 800 MG in DEXTROSE 5%-WATER - 250 ML IVPB SCH ×2 (02:11→14:50)
[2020-09-07] MEDS: oxyCODONE HCL 5 MG TABLET PO PRN ×5 (02:11→20:58)
[2020-09-07] MEDS: HEPARIN - 25,000 UNIT in SODIUM CHLORIDE 495 ML IV SCH (05:55)
[2020-09-07 06:29] LABS: HEMATOCRIT 26.8 % (35.4-49); HEMOGLOBIN 8.4 GM/dL (11.7-16.9); MCH 28.5 pg (25.7-33.7); MCHC 31.5 g/dl (32.0-35.9); MEAN CELL VOLUME 90.4 fl (80-96); MEAN PLT VOLUME 8.6 fl (7.5-11.1); PLATELET COUNT 259 K/MM3 (134-434); RBC 2.96 M/mm3 (4.00-5.60); RDW 19.3 % (11.9-15.9); WHITE BLOOD COUNT 13.5 K/mm3 (4.0-10.0)
[2020-09-07 07:38] LABS: ALBUMIN 2.2 g/dl (3.4-5.0); ALK PHOS 73 U/L (45-117); ANION GAP 9 MMOL/L (8-16); BILIRUBIN,TOTAL 0.8 mg/dL (0.2-1); BLOOD UREA NITROGEN 29.7 mg/dL (7-18); CALCIUM 8.3 mg/dL (8.5-10.1); CHLORIDE 102 mmol/L (98-107); CO2 28 mmol/L (21-32); CREATININE 3.8 mg/dL (0.55-1.3); GLUCOSE,RANDOM 116 mg/dL (74-106); POTASSIUM 3.8 mmol/L (3.5-5.1); SGOT/AST 11 U/L (15-37); SGPT/ALT < 6 U/L (13-61); SODIUM 139 mmol/L (136-145); TOT PROT 5.4 g/dl (6.4-8.2)
[2020-09-07] MEDS: FERROUS SO4 325 MG TABLET (FP) PO SCH (10:30)
[2020-09-07] MEDS: DOCUSATE SODIUM 100 MG CAPSULE (FP) PO SCH ×2 (10:30→20:59)
[2020-09-07] MEDS: FOLIC ACID 1 MG TABLET (FP) PO SCH (10:30)
[2020-09-07] MEDS: PANTOPRAZOLE 40 MG TABLET PO SCH (10:31)
[2020-09-07] MEDS: CALCIUM 500MG/VIT-D 200 UNITS COMBO TABLET (FP) PO SCH (10:31)
[2020-09-07] MEDS ORDERED: PT OWN MED DRAWER 7, Y5N ONE (14:47)
[2020-09-07] MEDS ORDERED: SODIUM CHLORIDE 250 ML IV PRN (17:35)
[2020-09-07] MEDS ORDERED: EPOETIN ALFA 10,000 UNIT/1 ML VIAL IVPUSH ONE (18:00)
[2020-09-07] MEDS: ISOSORBIDE MONONITRATE 60 MG TAB.SR.24H (FP) PO SCH (20:59)
[2020-09-07] MEDS: ROSUVASTATIN CA 10 MG TABLET (FP) PO SCH (20:59)
[2020-09-07] MEDS: SENNOSIDES 8.6MG TABLET (FP) PO SCH (21:00)
[2020-09-07] MEDS: MELATONIN 5 MG TABLETS PO SCH (22:17)
[2020-09-08] MEDS: oxyCODONE HCL 5 MG TABLET PO PRN ×5 (01:16→23:08)
[2020-09-08] MEDS ORDERED: PIPERACILLIN/TAZOBACTAM 2.25 GM VIAL IVPB ONE ×3 (01:56→16:41)
[2020-09-08] MEDS ORDERED: DEXTROSE 5%-WATER - 50 ML IVPB ONE ×3 (01:57→16:41)
[2020-09-08] MEDS: PIPERACILLIN/TAZOB 2.25 GM 2.25 GM in DEXTROSE 5%-WATER - 50 ML IVPB SCH ×3 (02:15→18:00)
[2020-09-08 08:27] LABS: INR 1.43 (0.83-1.09)
[2020-09-08 08:40] LABS: HEMATOCRIT 16.8 % (35.4-49); MCH 29.1 pg (25.7-33.7); MCHC 31.7 g/dl (32.0-35.9); MEAN CELL VOLUME 91.8 fl (80-96); MEAN PLT VOLUME 9.3 fl (7.5-11.1); PLATELET COUNT 342 K/MM3 (134-434); RBC 1.83 M/mm3 (4.00-5.60); RDW 19.5 % (11.9-15.9)
[2020-09-08 08:45] LABS: CHLORIDE 100 mmol/L (98-107); POTASSIUM 3.7 mmol/L (3.5-5.1); SODIUM 137 mmol/L (136-145); WHITE BLOOD COUNT 29.2 K/mm3 (4.0-10.0)
[2020-09-08 09:02] LABS: CREATININE 2.6 mg/dL (0.55-1.3); PHOSPHOROUS 1.8 mg/dL (2.5-4.9)
[2020-09-08 09:03] LABS: ALBUMIN 2.2 g/dl (3.4-5.0); BLOOD UREA NITROGEN 15.4 mg/dL (7-18); CALCIUM 8.6 mg/dL (8.5-10.1); GLUCOSE,RANDOM 110 mg/dL (74-106); HEMOGLOBIN 5.3 GM/dL (11.7-16.9)
[2020-09-08 09:04] LABS: ANION GAP 7 MMOL/L (8-16); BILIRUBIN,TOTAL 0.6 mg/dL (0.2-1); CO2 30 mmol/L (21-32); MAGNESIUM 1.6 mg/dL (1.8-2.4); TOT PROT 5.2 g/dl (6.4-8.2)
[2020-09-08 09:05] LABS: ALK PHOS 70 U/L (45-117); SGPT/ALT < 6 U/L (13-61)
[2020-09-08 09:06] LABS: SGOT/AST 7 U/L (15-37)
[2020-09-08] MEDS: DOCUSATE SODIUM 100 MG CAPSULE (FP) PO SCH ×2 (09:52→21:13)
[2020-09-08] MEDS: FOLIC ACID 1 MG TABLET (FP) PO SCH (09:53)
[2020-09-08] MEDS: PANTOPRAZOLE 40 MG TABLET PO SCH (09:53)
[2020-09-08] MEDS: FERROUS SO4 325 MG TABLET (FP) PO SCH (09:53)
[2020-09-08] MEDS: CALCIUM 500MG/VIT-D 200 UNITS COMBO TABLET (FP) PO SCH (09:53)
[2020-09-08] MEDS ORDERED: ACYCLOVIR INJECTION 800 MG in DEXTROSE 5%-WATER - 250 ML IVPB SCH (10:00)
[2020-09-08 10:24] LABS: ACTIVATED PTT > 400.0 SECONDS (25.2-36.5)
[2020-09-08 10:46] LABS: ANISOCYTOSIS 1+; OVALOCYTE 1+; PLATELET ESTIMATE ADEQUATE; TEAR DROP CELLS 1+
[2020-09-08 11:08] LABS: BASO % 0.8 % (0-2.0); EOS % 0.2 % (0-4.5); HEMATOCRIT 26.2 % (35.4-49); HEMOGLOBIN 8.3 GM/dL (11.7-16.9); LYMPH % 3.7 % (8-40); MCH 29.1 pg (25.7-33.7); MCHC 31.7 g/dl (32.0-35.9); MEAN CELL VOLUME 91.7 fl (80-96); MEAN PLT VOLUME 8.8 fl (7.5-11.1); MONO % 10.1 % (3.8-10.2); NEUT % 85.2 % (42.8-82.8); PLATELET COUNT 269 K/MM3 (134-434); RBC 2.86 M/mm3 (4.00-5.60); RDW 19.2 % (11.9-15.9); WHITE BLOOD COUNT 13.8 K/mm3 (4.0-10.0)
[2020-09-08 12:35] LABS: ANISOCYTOSIS 1+; MACROCYTOSIS 0; OVALOCYTE 1+; PLATELET ESTIMATE NORMAL; TEAR DROP CELLS 1+
[2020-09-08] MEDS ORDERED: ONDANSETRON 4 MG/2 ML VIAL IVPUSH PRN ×2 (14:28→20:10)
[2020-09-08] MEDS ORDERED: SODIUM CHLORIDE 250 ML IV PRN ×2 (14:34→20:10)
[2020-09-08] MEDS ORDERED: LIDOCAINE HCL 2% (20ML MULTI-DOSE VIAL) ONE (14:48)
[2020-09-08] MEDS ORDERED: MIDAZOLAM HCL 2 MG/2 ML SINGLE DOSE VIAL ONE (14:51)
[2020-09-08] MEDS ORDERED: LIDOCAINE HCL 2% (50ML VIAL) INF ONE (15:22)
[2020-09-08] MEDS ORDERED: BUPIVACAINE HCL/PF 0.5% (5 MG/ML) 30 ML VIAL IJ ONE (15:53)
[2020-09-08] MEDS ORDERED: BACITRACIN 50,000 UNITS VIAL TP ONE (15:53)
[2020-09-08] MEDS ORDERED: HEPARIN - 25,000 UNIT in SODIUM CHLORIDE 495 ML IV SCH (18:00)
[2020-09-08] MEDS: MORPHINE SULFATE 2 MG/ML VIAL IVPUSH PRN (18:13)
[2020-09-08] MEDS: WARFARIN NA 5 MG TABLET PO SCH (18:15)
[2020-09-08] MEDS: ISOSORBIDE MONONITRATE 60 MG TAB.SR.24H (FP) PO SCH (21:03)
[2020-09-08] MEDS: MELATONIN 5 MG TABLETS PO SCH (21:10)
[2020-09-08] MEDS: ROSUVASTATIN CA 10 MG TABLET (FP) PO SCH (21:10)
[2020-09-08] MEDS: SENNOSIDES 8.6MG TABLET (FP) PO SCH (21:14)
[2020-09-08] MEDS: HEPARIN - 25,000 UNIT in SODIUM CHLORIDE 495 ML IV SCH (23:10)
[2020-09-09] MEDS ORDERED: PIPERACILLIN/TAZOBACTAM 2.25 GM VIAL IVPB ONE ×3 (01:29→17:09)
[2020-09-09] MEDS ORDERED: DEXTROSE 5%-WATER - 50 ML IVPB ONE ×3 (01:29→17:09)
[2020-09-09] MEDS: PIPERACILLIN/TAZOB 2.25 GM 2.25 GM in DEXTROSE 5%-WATER - 50 ML IVPB SCH ×3 (01:40→17:17)
[2020-09-09] MEDS: oxyCODONE HCL 5 MG TABLET PO PRN ×4 (05:05→22:26)
[2020-09-09] MEDS: MORPHINE SULFATE 2 MG/ML VIAL IVPUSH PRN ×3 (05:54→21:03)
[2020-09-09 06:57] LABS: INR 1.63 (0.83-1.09); PROTHROMBIN TIME (PATIENT) 19.5 SEC (9.7-13.0)
[2020-09-09 07:00] LABS: ACTIVATED PTT 33.9 SECONDS (25.2-36.5)
[2020-09-09 07:01] LABS: HEMATOCRIT 25.1 % (35.4-49); MEAN CELL VOLUME 90.7 fl (80-96); MEAN PLT VOLUME 8.5 fl (7.5-11.1); PLATELET COUNT 269 K/MM3 (134-434); RBC 2.77 M/mm3 (4.00-5.60); RDW 19.1 % (11.9-15.9)
[2020-09-09 07:13] LABS: CHLORIDE 99 mmol/L (98-107); POTASSIUM 3.4 mmol/L (3.5-5.1); SODIUM 135 mmol/L (136-145)
[2020-09-09 07:29] LABS: CALCIUM 8.1 mg/dL (8.5-10.1)
[2020-09-09 07:30] LABS: ANION GAP 6 MMOL/L (8-16); BLOOD UREA NITROGEN 23.7 mg/dL (7-18); CO2 29 mmol/L (21-32); GLUCOSE,RANDOM 107 mg/dL (74-106); MAGNESIUM 1.6 mg/dL (1.8-2.4)
[2020-09-09 07:33] LABS: CREATININE 3.7 mg/dL (0.55-1.3); SGOT/AST 6 U/L (15-37); SGPT/ALT < 6 U/L (13-61)
[2020-09-09 07:34] LABS: BILIRUBIN,TOTAL 0.7 mg/dL (0.2-1); TOT PROT 4.9 g/dl (6.4-8.2)
[2020-09-09 07:35] LABS: ALK PHOS 60 U/L (45-117)
[2020-09-09] MEDS ORDERED: EPOETIN ALFA 10,000 UNIT/1 ML VIAL IVPUSH ONE ×2 (09:30→14:34)
[2020-09-09] MEDS ORDERED: MAGNESIUM OXIDE 400 MG TABLET (FP) PO ONE (12:47)
[2020-09-09] MEDS: CALCIUM 500MG/VIT-D 200 UNITS COMBO TABLET (FP) PO SCH (13:38)
[2020-09-09] MEDS: PANTOPRAZOLE 40 MG TABLET PO SCH (13:38)
[2020-09-09] MEDS: DOCUSATE SODIUM 100 MG CAPSULE (FP) PO SCH ×2 (13:39→22:26)
[2020-09-09] MEDS: FOLIC ACID 1 MG TABLET (FP) PO SCH (13:39)
[2020-09-09] MEDS: ACYCLOVIR INJECTION 800 MG in DEXTROSE 5%-WATER - 250 ML IVPB SCH (13:39)
[2020-09-09] MEDS: FERROUS SO4 325 MG TABLET (FP) PO SCH (13:42)
[2020-09-09] MEDS: WARFARIN NA 5 MG TABLET PO SCH (17:55)
[2020-09-09] MEDS: ISOSORBIDE MONONITRATE 60 MG TAB.SR.24H (FP) PO SCH (22:26)
[2020-09-09] MEDS: SENNOSIDES 8.6MG TABLET (FP) PO SCH (22:27)
[2020-09-09] MEDS: ROSUVASTATIN CA 10 MG TABLET (FP) PO SCH (22:27)
[2020-09-09] MEDS: MELATONIN 5 MG TABLETS PO SCH (22:27)
[2020-09-10] MEDS: MORPHINE SULFATE 2 MG/ML VIAL IVPUSH PRN ×4 (00:42→20:08)
[2020-09-10] MEDS: HEPARIN - 25,000 UNIT in SODIUM CHLORIDE 495 ML IV SCH ×3 (01:45→19:41)
[2020-09-10] MEDS ORDERED: DEXTROSE 5%-WATER - 50 ML IVPB ONE ×3 (02:18→15:30)
[2020-09-10] MEDS ORDERED: PIPERACILLIN/TAZOBACTAM 2.25 GM VIAL IVPB ONE ×3 (02:18→15:30)
[2020-09-10] MEDS: PIPERACILLIN/TAZOB 2.25 GM 2.25 GM in DEXTROSE 5%-WATER - 50 ML IVPB SCH ×3 (02:23→17:15)
[2020-09-10] MEDS: oxyCODONE HCL 5 MG TABLET PO PRN ×5 (02:40→21:38)
[2020-09-10 08:13] LABS: HEMATOCRIT 25.8 % (35.4-49); HEMOGLOBIN 8.1 GM/dL (11.7-16.9); MCH 28.8 pg (25.7-33.7); MCHC 31.2 g/dl (32.0-35.9); MEAN CELL VOLUME 92.2 fl (80-96); MEAN PLT VOLUME 8.5 fl (7.5-11.1); PLATELET COUNT 284 K/MM3 (134-434); RDW 19.2 % (11.9-15.9); WHITE BLOOD COUNT 12.9 K/mm3 (4.0-10.0)
[2020-09-10 08:19] LABS: INR 1.69 (0.83-1.09); PROTHROMBIN TIME (PATIENT) 20.1 SEC (9.7-13.0)
[2020-09-10] MEDS: FERROUS SO4 325 MG TABLET (FP) PO SCH (08:21)
[2020-09-10 08:22] LABS: ACTIVATED PTT 46.8 SECONDS (25.2-36.5)
[2020-09-10 08:41] LABS: POTASSIUM 3.5 mmol/L (3.5-5.1)
[2020-09-10 08:43] LABS: BLOOD UREA NITROGEN 14.1 mg/dL (7-18); CALCIUM 7.8 mg/dL (8.5-10.1); MAGNESIUM 1.6 mg/dL (1.8-2.4)
[2020-09-10 08:46] LABS: CREATININE 3.1 mg/dL (0.55-1.3)
[2020-09-10 08:47] LABS: PHOSPHOROUS 1.7 mg/dL (2.5-4.9)
[2020-09-10] MEDS: PANTOPRAZOLE 40 MG TABLET PO SCH (10:20)
[2020-09-10] MEDS: FOLIC ACID 1 MG TABLET (FP) PO SCH (10:21)
[2020-09-10] MEDS: CALCIUM 500MG/VIT-D 200 UNITS COMBO TABLET (FP) PO SCH (10:21)
[2020-09-10] MEDS: ACYCLOVIR INJECTION 800 MG in DEXTROSE 5%-WATER - 250 ML IVPB SCH (10:22)
[2020-09-10] MEDS: DOCUSATE SODIUM 100 MG CAPSULE (FP) PO SCH ×2 (10:23→21:46)
[2020-09-10] MEDS ORDERED: HEPARIN NA (PORCINE) 5,000 UNITS/ML 1ML VIAL IVPUSH PRN (11:40)
[2020-09-10] MEDS: HEPARIN NA (PORCINE) 5,000 UNITS/ML 1ML VIAL IVPUSH PRN (11:58)
[2020-09-10] MEDS ORDERED: SODIUM CHLORIDE 250 ML IV PRN (14:02)
[2020-09-10] MEDS ORDERED: MAGNESIUM OXIDE 400 MG TABLET (FP) PO ONE (14:03)
[2020-09-10] MEDS ORDERED: NAPH,MB-DB/K PH,MBDB POWDER PACKET PO ONE (14:03)
[2020-09-10] MEDS: WARFARIN NA 5 MG TABLET PO SCH (17:14)
[2020-09-10] MEDS ORDERED: PT OWN MED DRAWER 7, Y5N ONE (19:39)
[2020-09-10] MEDS: ISOSORBIDE MONONITRATE 60 MG TAB.SR.24H (FP) PO SCH (21:39)
[2020-09-10] MEDS: ROSUVASTATIN CA 10 MG TABLET (FP) PO SCH (21:39)
[2020-09-10] MEDS: MELATONIN 5 MG TABLETS PO SCH (21:39)
[2020-09-10] MEDS: SENNOSIDES 8.6MG TABLET (FP) PO SCH (21:46)
[2020-09-11] MEDS ORDERED: DEXTROSE 5%-WATER - 50 ML IVPB ONE ×3 (00:17→17:07)
[2020-09-11] MEDS ORDERED: PIPERACILLIN/TAZOBACTAM 2.25 GM VIAL IVPB ONE ×3 (00:17→17:07)
[2020-09-11] MEDS: MORPHINE SULFATE 2 MG/ML VIAL IVPUSH PRN ×3 (00:54→10:06)
[2020-09-11] MEDS: PIPERACILLIN/TAZOB 2.25 GM 2.25 GM in DEXTROSE 5%-WATER - 50 ML IVPB SCH ×3 (02:06→17:25)
[2020-09-11] MEDS: oxyCODONE HCL 5 MG TABLET PO PRN ×5 (02:42→21:43)
[2020-09-11] MEDS: FERROUS SO4 325 MG TABLET (FP) PO SCH (08:54)
[2020-09-11] MEDS: CALCIUM 500MG/VIT-D 200 UNITS COMBO TABLET (FP) PO SCH (09:05)
[2020-09-11] MEDS: DOCUSATE SODIUM 100 MG CAPSULE (FP) PO SCH ×2 (09:05→21:44)
[2020-09-11] MEDS: FOLIC ACID 1 MG TABLET (FP) PO SCH (09:05)
[2020-09-11] MEDS: PANTOPRAZOLE 40 MG TABLET PO SCH (09:05)
[2020-09-11] MEDS ORDERED: EPOETIN ALFA 10,000 UNIT/1 ML VIAL IVPUSH ONE (10:45)
[2020-09-11] MEDS: ACYCLOVIR INJECTION 800 MG in DEXTROSE 5%-WATER - 250 ML IVPB SCH (10:48)
[2020-09-11 14:48] LABS: HEMATOCRIT 26.7 % (35.4-49); HEMOGLOBIN 8.4 GM/dL (11.7-16.9); MCH 29.5 pg (25.7-33.7); MCHC 31.5 g/dl (32.0-35.9); MEAN CELL VOLUME 93.5 fl (80-96); MEAN PLT VOLUME 8.6 fl (7.5-11.1); PLATELET COUNT 320 K/MM3 (134-434); RBC 2.86 M/mm3 (4.00-5.60); RDW 20.1 % (11.9-15.9); WHITE BLOOD COUNT 10.6 K/mm3 (4.0-10.0)
[2020-09-11 14:55] LABS: INR 1.7 (0.83-1.09); PROTHROMBIN TIME (PATIENT) 20.6 SEC (9.7-13.0)
[2020-09-11 14:58] LABS: ACTIVATED PTT 47.2 SECONDS (25.2-36.5)
[2020-09-11 15:08] LABS: POTASSIUM 3.6 mmol/L (3.5-5.1)
[2020-09-11 15:10] LABS: BLOOD UREA NITROGEN 23.5 mg/dL (7-18); CALCIUM 7.4 mg/dL (8.5-10.1); MAGNESIUM 1.6 mg/dL (1.8-2.4)
[2020-09-11 15:14] LABS: CREATININE 3.5 mg/dL (0.55-1.3); PHOSPHOROUS 2.6 mg/dL (2.5-4.9)
[2020-09-11] MEDS: HEPARIN - 25,000 UNIT in SODIUM CHLORIDE 495 ML IV SCH (16:00)
[2020-09-11] MEDS: HEPARIN NA (PORCINE) 5,000 UNITS/ML 1ML VIAL IVPUSH PRN (16:00)
[2020-09-11] MEDS: WARFARIN NA 5 MG TABLET PO SCH (17:25)
[2020-09-11] MEDS: ROSUVASTATIN CA 10 MG TABLET (FP) PO SCH (21:43)
[2020-09-11] MEDS: ISOSORBIDE MONONITRATE 60 MG TAB.SR.24H (FP) PO SCH (21:43)
[2020-09-11] MEDS: MELATONIN 5 MG TABLETS PO SCH (21:43)
[2020-09-11] MEDS: SENNOSIDES 8.6MG TABLET (FP) PO SCH (21:44)
[2020-09-12] MEDS ORDERED: PIPERACILLIN/TAZOBACTAM 2.25 GM VIAL IVPB ONE ×3 (00:54→18:38)
[2020-09-12] MEDS ORDERED: DEXTROSE 5%-WATER - 50 ML IVPB ONE ×3 (00:54→18:38)
[2020-09-12] MEDS: PIPERACILLIN/TAZOB 2.25 GM 2.25 GM in DEXTROSE 5%-WATER - 50 ML IVPB SCH ×3 (01:02→18:43)
[2020-09-12] MEDS: MORPHINE SULFATE 2 MG/ML VIAL IVPUSH PRN (01:03)
[2020-09-12] MEDS: oxyCODONE HCL 5 MG TABLET PO PRN ×6 (01:50→23:13)
[2020-09-12 07:23] LABS: INR 1.79 (0.83-1.09); PROTHROMBIN TIME (PATIENT) 21.7 SEC (9.7-13.0)
[2020-09-12 07:24] LABS: ACTIVATED PTT 77.4 SECONDS (25.2-36.5)
[2020-09-12 08:28] LABS: HEMATOCRIT 25.3 % (35.4-49); HEMOGLOBIN 8.2 GM/dL (11.7-16.9); MCH 30.1 pg (25.7-33.7); MCHC 32.4 g/dl (32.0-35.9); MEAN PLT VOLUME 8.5 fl (7.5-11.1); PLATELET COUNT 332 K/MM3 (134-434); RBC 2.72 M/mm3 (4.00-5.60); RDW 19.9 % (11.9-15.9); WHITE BLOOD COUNT 10.5 K/mm3 (4.0-10.0)
[2020-09-12 09:11] LABS: HEMATOCRIT 26.3 % (35.4-49); HEMOGLOBIN 8.3 GM/dL (11.7-16.9); MCH 30.2 pg (25.7-33.7); MCHC 31.5 g/dl (32.0-35.9); MEAN CELL VOLUME 95.7 fl (80-96); MEAN PLT VOLUME 8.6 fl (7.5-11.1); PLATELET COUNT 312 K/MM3 (134-434); RBC 2.75 M/mm3 (4.00-5.60); RDW 20.1 % (11.9-15.9); WHITE BLOOD COUNT 9.6 K/mm3 (4.0-10.0)
[2020-09-12 10:14] LABS: CHLORIDE 103 mmol/L (98-107); POTASSIUM 3.5 mmol/L (3.5-5.1); SODIUM 140 mmol/L (136-145)
[2020-09-12] MEDS: DOCUSATE SODIUM 100 MG CAPSULE (FP) PO SCH ×2 (10:15→21:42)
[2020-09-12 10:16] LABS: ANION GAP 7 MMOL/L (8-16); BLOOD UREA NITROGEN 12.6 mg/dL (7-18); CALCIUM 7.9 mg/dL (8.5-10.1); CO2 30 mmol/L (21-32); GLUCOSE,RANDOM 97 mg/dL (74-106)
[2020-09-12] MEDS: FERROUS SO4 325 MG TABLET (FP) PO SCH (10:16)
[2020-09-12 10:20] LABS: CREATININE 2.5 mg/dL (0.55-1.3); SGOT/AST 8 U/L (15-37); SGPT/ALT < 6 U/L (13-61)
[2020-09-12] MEDS: ACYCLOVIR INJECTION 800 MG in DEXTROSE 5%-WATER - 250 ML IVPB SCH (10:20)
[2020-09-12 10:21] LABS: BILIRUBIN,TOTAL 0.4 mg/dL (0.2-1); TOT PROT 4.8 g/dl (6.4-8.2)
[2020-09-12 10:22] LABS: ALK PHOS 70 U/L (45-117)
[2020-09-12] MEDS: HEPARIN - 25,000 UNIT in SODIUM CHLORIDE 495 ML IV SCH ×2 (10:22→13:51)
[2020-09-12] MEDS: FOLIC ACID 1 MG TABLET (FP) PO SCH (10:32)
[2020-09-12] MEDS: PANTOPRAZOLE 40 MG TABLET PO SCH (10:32)
[2020-09-12] MEDS: CALCIUM 500MG/VIT-D 200 UNITS COMBO TABLET (FP) PO SCH (10:32)
[2020-09-12 10:34] LABS: MAGNESIUM 1.5 mg/dL (1.8-2.4)
[2020-09-12] MEDS: WARFARIN NA 5 MG TABLET PO SCH (18:43)
[2020-09-12] MEDS: SENNOSIDES 8.6MG TABLET (FP) PO SCH (21:43)
[2020-09-12] MEDS: ROSUVASTATIN CA 10 MG TABLET (FP) PO SCH (21:43)
[2020-09-12] MEDS: ISOSORBIDE MONONITRATE 60 MG TAB.SR.24H (FP) PO SCH (21:43)
[2020-09-12] MEDS: MELATONIN 5 MG TABLETS PO SCH (21:43)
[2020-09-13] MEDS ORDERED: DEXTROSE 5%-WATER - 50 ML IVPB ONE ×4 (01:22→16:31)
[2020-09-13] MEDS ORDERED: PIPERACILLIN/TAZOBACTAM 2.25 GM VIAL IVPB ONE ×4 (01:22→16:31)
[2020-09-13] MEDS: PIPERACILLIN/TAZOB 2.25 GM 2.25 GM in DEXTROSE 5%-WATER - 50 ML IVPB SCH ×3 (01:28→17:15)
[2020-09-13] MEDS ORDERED: PT OWN MED DRAWER 7, Y5N ONE ×2 (03:41→13:11)
[2020-09-13] MEDS: oxyCODONE HCL 5 MG TABLET PO PRN ×5 (04:19→22:56)
[2020-09-13] MEDS: HEPARIN - 25,000 UNIT in SODIUM CHLORIDE 495 ML IV SCH (04:22)
[2020-09-13 07:09] LABS: HEMATOCRIT 24.9 % (35.4-49); MCH 30.2 pg (25.7-33.7); MCHC 32.1 g/dl (32.0-35.9); MEAN CELL VOLUME 94.1 fl (80-96); MEAN PLT VOLUME 8.2 fl (7.5-11.1); PLATELET COUNT 323 K/MM3 (134-434); RBC 2.64 M/mm3 (4.00-5.60); RDW 20.3 % (11.9-15.9)
[2020-09-13 07:18] LABS: ACTIVATED PTT 78.6 SECONDS (25.2-36.5)
[2020-09-13 08:57] LABS: INR 2.04 (0.83-1.09); PROTHROMBIN TIME (PATIENT) 24.6 SEC (9.7-13.0)
[2020-09-13] MEDS: FOLIC ACID 1 MG TABLET (FP) PO SCH (09:01)
[2020-09-13] MEDS: DOCUSATE SODIUM 100 MG CAPSULE (FP) PO SCH ×2 (09:01→22:55)
[2020-09-13] MEDS: CALCIUM 500MG/VIT-D 200 UNITS COMBO TABLET (FP) PO SCH (09:02)
[2020-09-13] MEDS: PANTOPRAZOLE 40 MG TABLET PO SCH (09:02)
[2020-09-13] MEDS: FERROUS SO4 325 MG TABLET (FP) PO SCH (09:02)
[2020-09-13] MEDS: ACYCLOVIR 200 MG CAPSULE PO SCH ×2 (13:13→22:55)
[2020-09-13] MEDS: WARFARIN NA 5 MG TABLET PO SCH (17:15)
[2020-09-13] MEDS ORDERED: SODIUM CHLORIDE 250 ML IV PRN (17:28)
[2020-09-13] MEDS: MELATONIN 5 MG TABLETS PO SCH (22:55)
[2020-09-13] MEDS: ISOSORBIDE MONONITRATE 60 MG TAB.SR.24H (FP) PO SCH (22:55)
[2020-09-13] MEDS: ROSUVASTATIN CA 10 MG TABLET (FP) PO SCH (22:56)
[2020-09-13] MEDS: SENNOSIDES 8.6MG TABLET (FP) PO SCH (22:56)
[2020-09-14] MEDS ORDERED: DEXTROSE 5%-WATER - 50 ML IVPB ONE ×3 (01:17→16:44)
[2020-09-14] MEDS ORDERED: PIPERACILLIN/TAZOBACTAM 2.25 GM VIAL IVPB ONE ×3 (01:17→16:43)
[2020-09-14] MEDS: PIPERACILLIN/TAZOB 2.25 GM 2.25 GM in DEXTROSE 5%-WATER - 50 ML IVPB SCH ×3 (01:23→17:34)
[2020-09-14] MEDS: oxyCODONE HCL 5 MG TABLET PO PRN ×5 (03:31→20:34)
[2020-09-14 06:57] LABS: HEMATOCRIT 26.7 % (35.4-49); HEMOGLOBIN 8.5 GM/dL (11.7-16.9); MCH 30.1 pg (25.7-33.7); MCHC 31.8 g/dl (32.0-35.9); MEAN CELL VOLUME 94.7 fl (80-96); MEAN PLT VOLUME 8.3 fl (7.5-11.1); PLATELET COUNT 321 K/MM3 (134-434); RBC 2.81 M/mm3 (4.00-5.60); RDW 20.4 % (11.9-15.9); WHITE BLOOD COUNT 10.1 K/mm3 (4.0-10.0)
[2020-09-14 07:11] LABS: POTASSIUM 3.6 mmol/L (3.5-5.1)
[2020-09-14 07:14] LABS: CALCIUM 7.5 mg/dL (8.5-10.1)
[2020-09-14 07:17] LABS: CREATININE 2.6 mg/dL (0.55-1.3)
[2020-09-14 07:18] LABS: BLOOD UREA NITROGEN 18.7 mg/dL (7-18); MAGNESIUM 1.4 mg/dL (1.8-2.4)
[2020-09-14 07:21] LABS: PHOSPHOROUS 3.1 mg/dL (2.5-4.9)
[2020-09-14] MEDS: ACYCLOVIR 200 MG CAPSULE PO SCH ×2 (09:46→22:19)
[2020-09-14] MEDS: CALCIUM 500MG/VIT-D 200 UNITS COMBO TABLET (FP) PO SCH (09:47)
[2020-09-14] MEDS: PANTOPRAZOLE 40 MG TABLET PO SCH (09:47)
[2020-09-14] MEDS: FERROUS SO4 325 MG TABLET (FP) PO SCH (09:47)
[2020-09-14] MEDS: DOCUSATE SODIUM 100 MG CAPSULE (FP) PO SCH ×2 (09:47→22:20)
[2020-09-14] MEDS: FOLIC ACID 1 MG TABLET (FP) PO SCH (09:47)
[2020-09-14] MEDS ORDERED: MAGNESIUM OXIDE 400 MG TABLET (FP) PO ONE (14:17)
[2020-09-14] MEDS: WARFARIN NA 5 MG TABLET PO SCH (17:34)
[2020-09-14] MEDS: ISOSORBIDE MONONITRATE 60 MG TAB.SR.24H (FP) PO SCH (22:19)
[2020-09-14] MEDS: ROSUVASTATIN CA 10 MG TABLET (FP) PO SCH (22:19)
[2020-09-14] MEDS: MELATONIN 5 MG TABLETS PO SCH (22:19)
[2020-09-14] MEDS: SENNOSIDES 8.6MG TABLET (FP) PO SCH (22:20)
[2020-09-15] MEDS ORDERED: PIPERACILLIN/TAZOBACTAM 2.25 GM VIAL IVPB ONE ×3 (00:53→16:02)
[2020-09-15] MEDS ORDERED: DEXTROSE 5%-WATER - 50 ML IVPB ONE ×3 (00:54→16:03)
[2020-09-15] MEDS: oxyCODONE HCL 5 MG TABLET PO PRN ×6 (01:40→22:01)
[2020-09-15] MEDS: PIPERACILLIN/TAZOB 2.25 GM 2.25 GM in DEXTROSE 5%-WATER - 50 ML IVPB SCH ×3 (01:40→17:00)
[2020-09-15 07:51] LABS: ACTIVATED PTT 41.2 SECONDS (25.2-36.5)
[2020-09-15 07:54] LABS: BASO % 1.5 % (0-2.0); HEMATOCRIT 27.8 % (35.4-49); HEMOGLOBIN 8.7 GM/dL (11.7-16.9); LYMPH % 5.9 % (8-40); MCHC 31.4 g/dl (32.0-35.9); MEAN CELL VOLUME 95.4 fl (80-96); MEAN PLT VOLUME 8.4 fl (7.5-11.1); MONO % 8.2 % (3.8-10.2); NEUT % 82.4 % (42.8-82.8); PLATELET COUNT 336 K/MM3 (134-434); RBC 2.91 M/mm3 (4.00-5.60); WHITE BLOOD COUNT 9.5 K/mm3 (4.0-10.0)
[2020-09-15 07:59] LABS: CHLORIDE 104 mmol/L (98-107); POTASSIUM 3.9 mmol/L (3.5-5.1); SODIUM 138 mmol/L (136-145)
[2020-09-15 08:06] LABS: ALBUMIN 2.1 g/dl (3.4-5.0); ANION GAP 6 MMOL/L (8-16); BLOOD UREA NITROGEN 20.7 mg/dL (7-18); CO2 29 mmol/L (21-32); GLUCOSE,RANDOM 120 mg/dL (74-106); MAGNESIUM 1.6 mg/dL (1.8-2.4)
[2020-09-15 08:09] LABS: CREATININE 2.4 mg/dL (0.55-1.3); PHOSPHOROUS 3.1 mg/dL (2.5-4.9); SGOT/AST 8 U/L (15-37); SGPT/ALT < 6 U/L (13-61)
[2020-09-15 08:11] LABS: BILIRUBIN,TOTAL 0.5 mg/dL (0.2-1); TOT PROT 5.2 g/dl (6.4-8.2)
[2020-09-15 08:12] LABS: ALK PHOS 68 U/L (45-117)
[2020-09-15 09:33] LABS: INR 2.37 (0.83-1.09); PROTHROMBIN TIME (PATIENT) 28.4 SEC (9.7-13.0)
[2020-09-15] MEDS: CALCIUM 500MG/VIT-D 200 UNITS COMBO TABLET (FP) PO SCH (10:00)
[2020-09-15] MEDS: PANTOPRAZOLE 40 MG TABLET PO SCH (10:00)
[2020-09-15] MEDS: FERROUS SO4 325 MG TABLET (FP) PO SCH (10:00)
[2020-09-15] MEDS: DOCUSATE SODIUM 100 MG CAPSULE (FP) PO SCH ×2 (10:00→21:56)
[2020-09-15] MEDS: FOLIC ACID 1 MG TABLET (FP) PO SCH (10:01)
[2020-09-15 11:00] LABS: ANISOCYTOSIS 2+; MACROCYTOSIS 2+; PLATELET ESTIMATE NORMAL
[2020-09-15] MEDS ORDERED: MAGNESIUM OXIDE 400 MG TABLET (FP) PO ONE ×2 (13:40→18:20)
[2020-09-15] MEDS: WARFARIN NA 5 MG TABLET PO SCH (17:00)
[2020-09-15] MEDS: MELATONIN 5 MG TABLETS PO SCH (21:55)
[2020-09-15] MEDS: ROSUVASTATIN CA 10 MG TABLET (FP) PO SCH (21:55)
[2020-09-15] MEDS: ISOSORBIDE MONONITRATE 60 MG TAB.SR.24H (FP) PO SCH (21:55)
[2020-09-15] MEDS: SENNOSIDES 8.6MG TABLET (FP) PO SCH (21:56)
[2020-09-16] MEDS ORDERED: DEXTROSE 5%-WATER - 50 ML IVPB ONE (00:29)
[2020-09-16] MEDS ORDERED: PIPERACILLIN/TAZOBACTAM 2.25 GM VIAL IVPB ONE (00:29)
[2020-09-16] MEDS: oxyCODONE HCL 5 MG TABLET PO PRN ×6 (02:17→22:30)
[2020-09-16] MEDS ORDERED: PT OWN MED DRAWER 7, Y5N ONE (06:20)
[2020-09-16 07:30] LABS: BASO % 1.4 % (0-2.0); EOS % 0.6 % (0-4.5); HEMATOCRIT 27.7 % (35.4-49); HEMOGLOBIN 8.6 GM/dL (11.7-16.9); LYMPH % 6.2 % (8-40); MCHC 31.2 g/dl (32.0-35.9); MEAN CELL VOLUME 96.2 fl (80-96); MONO % 8.4 % (3.8-10.2); NEUT % 83.4 % (42.8-82.8); PLATELET COUNT 309 K/MM3 (134-434); RBC 2.88 M/mm3 (4.00-5.60); RDW 21.6 % (11.9-15.9)
[2020-09-16 07:43] LABS: INR 2.92 (0.83-1.09); PROTHROMBIN TIME (PATIENT) 34.3 SEC (9.7-13.0)
[2020-09-16 07:45] LABS: ACTIVATED PTT 43.3 SECONDS (25.2-36.5)
[2020-09-16 07:46] LABS: CHLORIDE 104 mmol/L (98-107); POTASSIUM 4.2 mmol/L (3.5-5.1); SODIUM 138 mmol/L (136-145)
[2020-09-16 08:08] LABS: ALBUMIN 2.1 g/dl (3.4-5.0); ANION GAP 7 MMOL/L (8-16); BLOOD UREA NITROGEN 24.4 mg/dL (7-18); CO2 28 mmol/L (21-32)
[2020-09-16 08:09] LABS: CALCIUM 7.6 mg/dL (8.5-10.1); GLUCOSE,RANDOM 105 mg/dL (74-106); MAGNESIUM 1.7 mg/dL (1.8-2.4)
[2020-09-16 08:11] LABS: CREATININE 2.2 mg/dL (0.55-1.3); SGOT/AST 9 U/L (15-37)
[2020-09-16 08:12] LABS: PHOSPHOROUS 3.2 mg/dL (2.5-4.9)
[2020-09-16 08:13] LABS: ALK PHOS 66 U/L (45-117); BILIRUBIN,TOTAL 0.5 mg/dL (0.2-1); SGPT/ALT < 6 U/L (13-61); TOT PROT 5.2 g/dl (6.4-8.2)
[2020-09-16 09:02] LABS: ANISOCYTOSIS 1+; MACROCYTOSIS 1+; PLATELET ESTIMATE NORMAL
[2020-09-16] MEDS: CALCIUM 500MG/VIT-D 200 UNITS COMBO TABLET (FP) PO SCH (09:09)
[2020-09-16] MEDS: FERROUS SO4 325 MG TABLET (FP) PO SCH (09:09)
[2020-09-16] MEDS: PANTOPRAZOLE 40 MG TABLET PO SCH (09:09)
[2020-09-16] MEDS: FOLIC ACID 1 MG TABLET (FP) PO SCH (09:10)
[2020-09-16] MEDS: DOCUSATE SODIUM 100 MG CAPSULE (FP) PO SCH ×2 (09:10→22:28)
[2020-09-16] MEDS ORDERED: DULoxetine HCL 20 MG CAPSULE.DR PO SCH (10:00)
[2020-09-16] MEDS ORDERED: MAGNESIUM SULF 50% (8.12 MEQ/2 ML-1 GM VIAL) IVPB ONE (10:11)
[2020-09-16] MEDS ORDERED: FUROSEMIDE 40 MG TABLET (FP) PO ONE (12:17)
[2020-09-16] MEDS: WARFARIN NA 5 MG TABLET PO SCH (17:18)
[2020-09-16] MEDS: ISOSORBIDE MONONITRATE 60 MG TAB.SR.24H (FP) PO SCH (22:27)
[2020-09-16] MEDS: MELATONIN 5 MG TABLETS PO SCH (22:27)
[2020-09-16] MEDS: ROSUVASTATIN CA 10 MG TABLET (FP) PO SCH (22:27)
[2020-09-16] MEDS: SENNOSIDES 8.6MG TABLET (FP) PO SCH (22:28)
[2020-09-17] MEDS: oxyCODONE HCL 5 MG TABLET PO PRN ×6 (03:20→23:58)
[2020-09-17 06:33] LABS: INR 3.06 (0.83-1.09); PROTHROMBIN TIME (PATIENT) 35.8 SEC (9.7-13.0)
[2020-09-17 06:35] LABS: BASO % 0.9 % (0-2.0); EOS % 0.8 % (0-4.5); HEMATOCRIT 28.5 % (35.4-49); MCH 30.3 pg (25.7-33.7); MCHC 31.6 g/dl (32.0-35.9); MEAN CELL VOLUME 95.8 fl (80-96); MEAN PLT VOLUME 8.2 fl (7.5-11.1); MONO % 7.6 % (3.8-10.2); NEUT % 86.7 % (42.8-82.8); PLATELET COUNT 319 K/MM3 (134-434); RBC 2.98 M/mm3 (4.00-5.60); RDW 22.6 % (11.9-15.9); WHITE BLOOD COUNT 10.4 K/mm3 (4.0-10.0)
[2020-09-17 06:42] LABS: POTASSIUM 4.3 mmol/L (3.5-5.1)
[2020-09-17 06:48] LABS: ALBUMIN 2.2 g/dl (3.4-5.0); CALCIUM 8.3 mg/dL (8.5-10.1)
[2020-09-17 06:50] LABS: MAGNESIUM 1.9 mg/dL (1.8-2.4)
[2020-09-17 06:53] LABS: PHOSPHOROUS 3.3 mg/dL (2.5-4.9)
[2020-09-17 06:54] LABS: BILIRUBIN,TOTAL 0.4 mg/dL (0.2-1); TOT PROT 5.4 g/dl (6.4-8.2)
[2020-09-17 09:17] LABS: ANISOCYTOSIS 2+; MACROCYTOSIS 2+; OVALOCYTE 1+; PLATELET ESTIMATE NORMAL
[2020-09-17] MEDS ORDERED: WARFARIN NA 2 MG TABLET PO SCH (10:01)
[2020-09-17] MEDS ORDERED: PT OWN MED DRAWER 7, Y5N ONE (10:27)
[2020-09-17] MEDS: FOLIC ACID 1 MG TABLET (FP) PO SCH (10:29)
[2020-09-17] MEDS: CALCIUM 500MG/VIT-D 200 UNITS COMBO TABLET (FP) PO SCH (10:29)
[2020-09-17] MEDS: DOCUSATE SODIUM 100 MG CAPSULE (FP) PO SCH ×2 (10:29→22:49)
[2020-09-17] MEDS: PANTOPRAZOLE 40 MG TABLET PO SCH (10:29)
[2020-09-17] MEDS: FERROUS SO4 325 MG TABLET (FP) PO SCH (10:29)
[2020-09-17] MEDS: FUROSEMIDE 40 MG TABLET (FP) PO SCH (11:21)
[2020-09-17] MEDS: PREGABALIN 25 MG CAPSULE PO SCH (11:22)
[2020-09-17] MEDS: MELATONIN 5 MG TABLETS PO SCH (22:49)
[2020-09-17] MEDS: ROSUVASTATIN CA 10 MG TABLET (FP) PO SCH (22:49)
[2020-09-17] MEDS: SENNOSIDES 8.6MG TABLET (FP) PO SCH (22:49)
[2020-09-17] MEDS: ISOSORBIDE MONONITRATE 60 MG TAB.SR.24H (FP) PO SCH (22:49)
[2020-09-18] MEDS: oxyCODONE HCL 5 MG TABLET PO PRN ×3 (03:49→12:13)
[2020-09-18 05:57] VITALS: BP 136/77; PULSE 120; TEMP 98
[2020-09-18 08:55] LABS: BASO % 1.1 % (0-2.0); EOS % 1.1 % (0-4.5); HEMATOCRIT 28.9 % (35.4-49); HEMOGLOBIN 9.1 GM/dL (11.7-16.9); LYMPH % 5.5 % (8-40); MCHC 31.7 g/dl (32.0-35.9); MEAN CELL VOLUME 97.8 fl (80-96); MEAN PLT VOLUME 8.5 fl (7.5-11.1); MONO % 8.6 % (3.8-10.2); NEUT % 83.7 % (42.8-82.8); PLATELET COUNT 303 K/MM3 (134-434); RBC 2.95 M/mm3 (4.00-5.60); RDW 22.8 % (11.9-15.9)
[2020-09-18 09:08] LABS: INR 2.84 (0.83-1.09); PROTHROMBIN TIME (PATIENT) 33.3 SEC (9.7-13.0)
[2020-09-18 09:19] LABS: CHLORIDE 102 mmol/L (98-107); POTASSIUM 4.6 mmol/L (3.5-5.1); SODIUM 137 mmol/L (136-145)
[2020-09-18 09:22] LABS: ALBUMIN 2.3 g/dl (3.4-5.0); ANION GAP 5 MMOL/L (8-16); BLOOD UREA NITROGEN 29.8 mg/dL (7-18); CALCIUM 8.3 mg/dL (8.5-10.1); CO2 30 mmol/L (21-32); GLUCOSE,RANDOM 120 mg/dL (74-106); MAGNESIUM 1.8 mg/dL (1.8-2.4)
[2020-09-18 09:25] LABS: SGOT/AST 10 U/L (15-37); SGPT/ALT < 6 U/L (13-61)
[2020-09-18 09:27] LABS: PHOSPHOROUS 3.4 mg/dL (2.5-4.9)
[2020-09-18 09:28] LABS: ALK PHOS 79 U/L (45-117); BILIRUBIN,TOTAL 0.4 mg/dL (0.2-1); TOT PROT 5.4 g/dl (6.4-8.2)
[2020-09-18] MEDS: PREGABALIN 25 MG CAPSULE PO SCH (09:57)
[2020-09-18] MEDS: CALCIUM 500MG/VIT-D 200 UNITS COMBO TABLET (FP) PO SCH (09:57)
[2020-09-18] MEDS: FOLIC ACID 1 MG TABLET (FP) PO SCH (09:57)
[2020-09-18] MEDS: PANTOPRAZOLE 40 MG TABLET PO SCH (09:57)
[2020-09-18] MEDS: FERROUS SO4 325 MG TABLET (FP) PO SCH (09:57)
[2020-09-18] MEDS: DOCUSATE SODIUM 100 MG CAPSULE (FP) PO SCH (09:58)
[2020-09-18] MEDS: FUROSEMIDE 40 MG TABLET (FP) PO SCH (09:58)
[2020-09-18 11:48] LABS: ANISOCYTOSIS 2+; MACROCYTOSIS 1+; PLATELET ESTIMATE NORMAL
== END 2020-09-18 14:24 | disposition hospice, inpatient (51) | DRG 853 ==
LOC: JER 11:16 → JERBED 14:18 → J4W 08-30 10:17 → J7W 09-03 23:48
PROVIDERS: ADMIT Internal Medicine; ATTEND Internal Medicine
PROC: B40FYZZ Plain Radiography of Right Lower Extremity Arteries using Other Contrast (ICD-10-PCS; 2020-09-01)
PROC: 5A1D70Z Performance of Urinary Filtration, Intermittent, Less than 6 Hours Per Day (ICD-10-PCS; 2020-09-04)
PROC: 30233N1 Transfusion of Nonautologous Red Blood Cells into Peripheral Vein, Percutaneous Approach (ICD-10-PCS; 2020-09-06)
PROC: 0QBN0ZX Excision of Right Metatarsal, Open Approach, Diagnostic (ICD-10-PCS; 2020-09-08)
PROC: 0Y6P0Z0 Detachment at Right 1st Toe, Complete, Open Approach (ICD-10-PCS; principal; 2020-09-08 14:30)
DX: A41.9 Sepsis, unspecified organism (principal); N18.6 End stage renal disease; E11.52 Type 2 diabetes mellitus with diabetic peripheral angiopathy with gangrene; I50.22 Chronic systolic (congestive) heart failure; L03.115 Cellulitis of right lower limb; I96 Gangrene, not elsewhere classified; D68.9 Coagulation defect, unspecified; M86.9 Osteomyelitis, unspecified; I12.0 Hypertensive chronic kidney disease with stage 5 chronic kidney disease or end stage renal disease; E11.69 Type 2 diabetes mellitus with other specified complication; E11.51 Type 2 diabetes mellitus with diabetic peripheral angiopathy without gangrene; J44.9 Chronic obstructive pulmonary disease, unspecified; E11.43 Type 2 diabetes mellitus with diabetic autonomic (poly)neuropathy; B02.9 Zoster without complications; I25.10 Atherosclerotic heart disease of native coronary artery without angina pectoris; Z95.1 Presence of aortocoronary bypass graft; Z99.2 Dependence on renal dialysis; E87.70 Fluid overload, unspecified; K59.00 Constipation, unspecified; D64.9 Anemia, unspecified; I25.5 Ischemic cardiomyopathy; I48.91 Unspecified atrial fibrillation; Z95.5 Presence of coronary angioplasty implant and graft; E66.9 Obesity, unspecified; Z68.27 Body mass index [BMI] 27.0-27.9, adult; E83.42 Hypomagnesemia; E78.5 Hyperlipidemia, unspecified; D72.829 Elevated white blood cell count, unspecified; E87.6 Hypokalemia; K21.9 Gastro-esophageal reflux disease without esophagitis; I44.0 Atrioventricular block, first degree
CPT/HCPCS: 36415; 36430; 71045-TC-FY; 71101-TC-LT-FY; 73030-TC-LT-FY; 73630-TC-RT-FY; 74174-TC; 80048; 80053; 80061; 80076; 82272; 82962; 83036; 83605; 83721; 83735; 84100; 84443; 84484; 85025; 85027; 85610; 85651; 85730; 86140; 86704; 86706; 86707; 86708; 86709; 86803; 86850; 86900; 86901; 86922; 87040; 87070; 87186; 87205; 87340; 88305-TC; 88311-TC; 93005; 93010; 93306-TC; 93926-TC; 94760; 97116-GP; 97161-GP; 99285-25; C9803; J0131; J0878; J0885; J1644; P9058; Q5106; Q9967; U0003